=== PATIENT | female | born 1940 | race Caucasian/White ===

== ENCOUNTER 2016-06-20 15:08 | Inpatient (IN) | payer MEDICARE, OTHER ==
[~2016-06-20] VITALS: Ht 154.9 cm; Wt 77.1 kg
[~2016-06-20 15:08] MED LIST: ACETAMINOPHEN-1 EAC1 ORAL; ALLOPURINOL100 M1 ORAL; AMBIEN10 MG ORAL; AMBIEN10 MG PO; AMBIEN5 M1 PO; AMBIEN5 MG ORAL; AMBIEN5 MG PO; ATIVAN0.5 MG ORAL; ATIVAN2 MG ORAL; AZITHROMYCIN250 MG ORAL; BACITRACIN1 APPLIC TOPIC; BACTROBAN 2% OI15 GM TOPIC; BENADRYL25 M2 PO; BENADRYL25 M3 PO; BISACODYL5 MG ORAL; BISACODYL5 MG RECTAL; BUPROPION HCL150 M3 ORAL; CEFTRIAXONE1 G1 IVPB; CLOTRIMAZOLE AF30 GM TOP; CLOTRIMAZOLE15 GM TOPIC; COLACE250 MG PO; DEPAKENE250 MG ORAL; DEPAKOTE250 MG PO; DEPAKOTE500 MG ORAL; DIFLUCAN100 MG ORAL; DIPROLENE 0.05%15 GM TOPIC; DOCUSATE SODIU250 MG ORAL; ELIMITE 5% CREA60 GM TOPIC; FISH OIL 1,0001 EAC5 ORAL; FISH OIL 1,0001 EACH PO; GLUCOSAMINE1000 MG PO; HYDRALAZINE HCL25 M2 PO; HYDROCHLOROTH12.5 M2 ORAL; HYDROCHLOROTH12.5 MG ORAL; HYDROCHLOROTHIA25 MG PO; HYDROCORTISONE28 G1 TP; IBUPROFEN600 MG ORAL; K-DUR20 MEQ ORAL; KCL 20 MEQ20 MEQ/100 ORAL; KCL2 MEQ/ML PO; KEFLEX500 MG ORAL; KENALOG 0.1% CR15 GM APPLIC; KETOCONAZOLE15 GM TOP; LASIX40 MG ORAL; LEVAQUIN PO; LIDEX15 GM EXT; LIPITOR10 MG ORAL; LISINOPRIL-HCT1 EAC1 ORAL; LISINOPRIL5 MG ORAL; LOPRESSOR25 M1 ORAL; LORAZEPAM0.5 MG IV; LORAZEPAM2 MG/1 M3 IV; LORAZEPAM4 MG/1 M1 IV; LOTRISONE CREAM15 GM TP; MACROBID100 MG ORAL; MIRALAX17 G2 ORAL; MIRALAX17 GM ORAL; MIRTAZAPINE15 M3 ORAL; MOBIC15 MG ORAL; MOM30 ML PO; MOTRIN600 MG PO; MULTI-VITAMIN1 EAC1 PO; MULTIVITAMINS1 EAC8 PO; MYLANTA II30 ML PO; NITROGLYCERIN1 EAC2 TD; NORCO 5-325 TA1 EAC1 ORAL; NORCO 5-325 TA1 EACH ORAL; NORCO 7.5/3251 EA ORAL; OXYCODONE HCL15 M1 ORAL; PERI-COLACE1 EA PO; POLYETHYLENE G500 G1 MC; POTASSIUM CHLO20 ME1 ORAL; POTASSIUM CHLO20 ME1 PO; PREDNISONE20 MG ORAL; PROAIR HFA8.5 GM INH; PROMETHAZINE V237 ML ORAL; PROMETHAZINE-C118 M1 ORAL; Q-TUSSIN DM SY120 ML PO; RANITIDINE HCL150 M1 ORAL; RESPIRIDAL; RESTORIL7.5 MG ORAL; RISPERDAL0.25 MG ORAL; RISPERDAL0.5 MG ORAL; RISPERDAL0.5 MG PO; RISPERDAL1 MG ORAL; RISPERIDONE0.25 MG PO; SUDOGEST30 MG PO; SULFAMETHOXAZO1 EAC2 ORAL; TRAMADOL HCL50 MG ORAL; TYLENOL100 MG/11 PO; TYLENOL325 MG ORAL; TYLENOL650 MG/20. ORAL; VANCOMYCIN1 GM IV; VESICARE10 MG ORAL; VESICARE10 MG PO; VICODIN 5-3001 EACH ORAL; VICODIN 5-5001 EACH ORAL; VICODIN1 TA1 GT; WELLBUTRIN100 MG ORAL; XARELTO10 MG ORAL; XARELTO20 MG ORAL; ZESTRIL10 MG ORAL; ZITHROMAX TRI-500 MG ORAL; ZOFRAN 4 MG4 MG/2 ML IV; ZOFRAN ODT4 MG ORAL; [UNRECOGNIZED DRUG - OTHER] PO
[2016-06-20 15:45] VITALS: BP 121/62
[2016-06-20] MEDS ORDERED: Morphine Sulfate 2mg/ml Inj IVP ONE (16:00)
[2016-06-20] MEDS ORDERED: Vancomycin 1 GM in NS 275 ML IV ONE (16:00)
[2016-06-20] MEDS ORDERED: metroNIDAZOLE 500mg 100 ML IV SCH (16:00)
[2016-06-20] MEDS ORDERED: Cefepime HCl 1 GM in NS 55 ML IV SCH (16:00)
--- NOTE | 2016-06-20 16:00 | Emergency Room Report ---
History of Present Illness General Chief Complaint: Lower Extremity Injury Present Illness HPI The patient presents with right foot pain and redness. She's been treated for cellulitis of the foot. She will most recently was on oral antibiotics a week ago. She denies any fevers or chills at this time but the redness in his red streaks up her leg. She was advised to come to be hospitalized for IV antibiotics at this time. Pain is constant 10/10, foot, some radiation to leg, throbbing. No NVD, chest pain, CAREY, dysuria, cough, other joint pain. There is some back pain which is chronic. She is depressed and frustrated. These are the d/c dx from 05/19: 1. Acute osteomyelitis of the right second toe. 2. Nonhealing right second toe ulcer, present on admission. 3. Thrombocytopenia. 4. Uncontrolled diabetes mellitus. 5. Acute diastolic congestive heart failure. 6. Coronary artery disease. 7. Chronic obstructive pulmonary disease. 8. Hypertension. 9. Bipolar depression. Allergies: Coded Allergies: NO KNOWN DRUG ALLERGIES (Unverified Allergy, Unknown, 07/11/15) Patient History Past Medical History: see triage record Social History: Reports: alcohol use, Denies: smoking Social History Narrative assisted living Reviewed Nursing Documentation: PMH: Agreed, PSxH: Agreed Nursing Documentation-PMH Hx Hypertension: Yes Hx Pacemaker: No - stent Hx Asthma: No Hx COPD: Yes Hx Diabetes: No Hx Cancer: No Hx Gastrointestinal Problems: Yes - ETOH abuse Hx Dialysis: No Hx Neurological Problems: Yes - bilat hip replacement, non-ambulatory Hx Cerebrovascular Accident: Yes Hx Dementia: Yes Hx Seizures: No Hx Tremors: Yes Hx Vertigo: Yes Hx Dizziness: Yes Hx Syncope: Yes Hx Headaches: Yes - occasional Hx Weakness: Yes - BLE Hx Fatigue: Yes Review of Systems All Other Systems: negative except mentioned in HPI Physical Exam Vital Signs Date Time Temp Pulse Resp B/P Pulse Ox O2 Delivery O2 Flow Rate FiO2 06/20/16 15:32 99.1 60 20 133/55 98 Room Air Sp02 EP Interpretation: reviewed, normal General Appearance: Chronically Ill Head: normocephalic Eyes: bilateral eye PERRL, bilateral eye normal inspection ENT: moist mucus membranes Neck: supple Respiratory: lungs clear, normal breath sounds Cardiovascular #1: regular rate, rhythm Cardiovascular #2: 2+ radial (R) Gastrointestinal: normal inspection, normal bowel sounds, non tender, no mass, non-distended Musculoskeletal: no calf tenderness, inflammation, swelling - 2nd toe R Neurologic: alert, oriented x3, motor strength/tone normal, DTRs symmetric, sensory intact, speech normal Psychiatric: depressed affect, anxious Skin: other - erythema of 2nd toe, abrasions Medical Decision Making Diagnostic Impression: Primary Impression: Osteomyelitis of toe of right foot Additional Impression: CHF (congestive heart failure) ER Course Patient presents with pain and swelling of toe. Prior infection and recent antibiotics. Ddx: osteomyelitis, cellulitis, abscess amongst others. No evidence of DVT. Labs, BC, x-ray, EKG and CXR. Treatment with IV hydration ( gentle with h/o chf), antibiotics and analgesia. Antibiotics begun. Xray with bone destruction. Labs with normal WBC, slightly low H/H and normal ESR. Clinical exam and foot xray c/w osteomyelitis. Improved with treatment. Admit med Dr. Sierra. Laboratory Tests Test 06/20/16 16:25 White Blood Count 6.8 K/UL (4.8-10.8) Red Blood Count 3.69 M/UL (4.20-5.40) L Hemoglobin 10.4 G/DL (12.0-16.0) L Hematocrit 32.3 % (37.0-47.0) L Mean Corpuscular Volume 87 FL (80-99) Mean Corpuscular Hemoglobin 28.3 PG (27.0-31.0) Mean Corpuscular Hemoglobin Concent 32.3 G/DL (32.0-36.0) Red Cell Distribution Width 16.1 % (11.6-14.8) H Platelet Count 192 K/UL (150-450) Mean Platelet Volume 8.1 FL (6.5-10.1) Neutrophils (%) (Auto) 55.7 % (45.0-75.0) Lymphocytes (%) (Auto) 26.8 % (20.0-45.0) Monocytes (%) (Auto) 8.3 % (1.0-10.0) Eosinophils (%) (Auto) 7.9 % (0.0-3.0) H Basophils (%) (Auto) 1.3 % (0.0-2.0) Erythrocyte Sedimentation Rate 13 MM/HR (0-30) Prothrombin Time 10.8 SEC (9.30-11.50) Prothrombin Time INR 1.1 (0.9-1.1) PTT 27 SEC (23-33) Sodium Level 140 mEQ/L (135-145) Potassium Level 4.2 mEQ/L (3.4-4.9) Chloride Level 100 mEQ/L (98-107) Carbon Dioxide Level 27 mEQ/L (20-30) Anion Gap 13 (5-15) Blood Urea Nitrogen 11 mg/dL (7-23) Creatinine 0.8 mg/dL (0.5-0.9) Estimate Glomerular Filtration Rate mL/min (>60) Glucose Level 96 mg/dL (74-106) Lactic Acid Level 1.50 mmol/L (0.66-2.22) Calcium Level 8.5 mg/dL (8.6-10.2) L Total Bilirubin < 0.2 mg/dL (0.0-1.2) Aspartate Amino Transferase (AST) 16 U/L (5-40) Alanine Aminotransferase (ALT) 13 U/L (3-33) Alkaline Phosphatase 56 U/L (35-104) Total Creatine Kinase 16 U/L (26-140) L Troponin I < 0.30 ng/mL (<=0.30) Pro-B-Type Natriuretic Peptide 3389 pg/mL (0-125) H Total Protein 6.1 g/dL (6.6-8.7) L Albumin 3.7 g/dL (3.5-5.2) Globulin 2.4 g/dL Albumin/Globulin Ratio 1.5 (1.0-2.7) EKG Diagnostic Results Rate: bradycardiac Rhythm: other - paced ST Segments: no acute changes Rhythm Strip Diag. Results EP Interpretation: yes Rhythm: no PVC's, no ectopy, other - paced Chest X-Ray Diagnostic Results EP Interpretation: Yes Findings: no effusion, no pneumothorax, other - inc cor Number of Views: 1 Other X-Ray Diagnostic Results Other X-Ray Diagnostic Results : X-Ray Ordered: R foot EP Interpretation: Yes Findings: other - djd, bone destruction 2nd toe - possible osteo, osteopenia Number of Views: 3 Last Vital Signs Date Time Temp Pulse Resp B/P Pulse Ox O2 Delivery O2 Flow Rate FiO2 06/21/16 00:47 116/46 06/21/16 00:07 97.7 71 18 94 Room Air Status: improved Disposition: ADMITTED INPATIENT Condition: Serious Referrals: GAYLE SIERRA (PCP) Josue Gaspar M.D. Jun 20, 2016 16:00
[2016-06-20] MEDS ORDERED: Vancomycin 1gm inj IVPB ONE (16:37)
[2016-06-20 16:41] LABS: BASOPHILS % (AUTO) 1.3 % (0.0-2.0); EOSINOPHILS % (AUTO) 7.9 % (0.0-3.0); LYMPHOCYTES % (AUTO) 26.8 % (20.0-45.0); MEAN CORPUSCULAR HEMOGLOBIN 28.3 PG (27.0-31.0); MEAN CORPUSCULAR HGB CONC 32.3 G/DL (32.0-36.0); MEAN CORPUSCULAR VOLUME 87 FL (80-99); MEAN PLATELET VOLUME 8.1 FL (6.5-10.1); MONOCYTES % (AUTO) 8.3 % (1.0-10.0); NEUTROPHILS % (AUTO) 55.7 % (45.0-75.0); PLATELET COUNT 192 K/UL (150-450); RED BLOOD COUNT 3.69 M/UL (4.20-5.40); RED CELL DISTRIBUTION WIDTH 16.1 % (11.6-14.8); WHITE BLOOD COUNT 6.8 K/UL (4.8-10.8)
[2016-06-20 16:56] LABS: ALANINE AMINOTRANSFERASE 13 U/L (3-33); ALBUMIN/GLOBULIN RATIO 1.5 (1.0-2.7); ANION GAP 13 (5-15); ASPARTATE AMINO TRANSFERASE 16 U/L (5-40); CALCIUM 8.5 mg/dL (8.6-10.2); CARBON DIOXIDE 27 mEQ/L (20-30); CHLORIDE 100 mEQ/L (98-107); CREATININE 0.8 mg/dL (0.5-0.9); HEMOLYSIS 18; POTASSIUM 4.2 mEQ/L (3.4-4.9); SODIUM 140 mEQ/L (135-145); TOTAL PROTEIN 6.1 g/dL (6.6-8.7); TROPONIN I < 0.30 ng/mL (<=0.30)
[2016-06-20] MEDS ORDERED: Cefepime 1gm vial ONE (17:27)
[2016-06-20 17:29] LABS: INR 1.1 (0.9-1.1); PROTHROMBIN TIME 10.8 SEC (9.30-11.50)
[2016-06-20] MEDS ORDERED: LORazepam 0.5mg tab ORAL PRN (17:30)
[2016-06-20] MEDS ORDERED: Mylanta II UD 30ml ORAL PRN ×2 (17:30→17:45)
[2016-06-20] MEDS ORDERED: LORazepam Inj 2mg/ml 1ml IV SCH (17:30)
--- NOTE | 2016-06-20 17:40 | History and Physical ---
History of Present Illness General Date patient seen: Jun 20, 2016 Reason for Hospitalization: Lower Extremity Injury Present Illness HPI 75 year old female with hx of Depression, ETOH abuse, CAD, PVD, wheelchair bound patient presents with right foot pain and redness. She's been treated for cellulitis of the foot. She will most recently was on oral antibiotics a week ago. She denies any fevers or chills at this time but the redness in his red streaks up her leg. She was advised to come to be hospitalized for IV antibiotics at this time. and possibly surgical intervention Pain is constant 10/10, foot, some radiation to leg, throbbing. No NVD, chest pain, CAREY, dysuria, cough, other joint pain. There is some back pain which is chronic. Allergies: Coded Allergies: NO KNOWN DRUG ALLERGIES (Unverified Allergy, Unknown, 07/11/15) Medication History Scheduled Al Hydroxide/mg Hydroxide (Mag-Al Plus Suspension), 30 ML PO prn Q6hr, (Reported ) Allopurinol* (Allopurinol*), 100 MG ORAL DAILY Atorvastatin Calcium* (Lipitor*), 10 MG ORAL BEDTIME Bisacodyl* (Dulcolax*), 10 MG ORAL PRN daily, (Reported) Bupropion HCl (Wellbutrin), 100 MG ORAL EVERY 12 HOURS, (Reported) Bupropion Hcl* (Bupropion Hcl Sr*), 200 MG ORAL DAILY, (Reported) Ceftriaxone Sodium (Ceftriaxone), 1 GM IVPB DAILY, (Reported) Divalproex Sodium (Depakote), 250 MG ORAL EVERY 12 HOURS, (Reported) Docusate Sodium* (Docusate Sodium*), 250 MG ORAL DAILY, (Reported) Furosemide* (Lasix*), 40 MG ORAL DAILY, (Reported) Hydralazine HCl (Hydralazine HCl), 25 MG PO Q6HR, (Reported) Lisinopril (Lisinopril*), 5 MG ORAL DAILY Lorazepam (Lorazepam), 2 MG IV Q4H, (Reported) Metoprolol Tartrate (Metoprolol Tartrate), 25 MG ORAL Q12HR Mirtazapine* (Mirtazapine*), 15 MG ORAL BEDTIME, (Reported) Nitroglycerin (Nitroglycerin Patch), 1 EACH TD Q6HR, (Reported) [place]-3 Fatty Acids/Fish Oil (Fish Oil 1,000 Mg Capsule), 1,000 MG ORAL DAILY, ( Reported) Pseudoephedrine Hcl (Sudogest), 30 MG PO BID, (Reported) Pseudoephedrine Hcl (Sudogest), 30 MG PO bid prn, (Reported) Ranitidine Hcl (Ranitidine Hcl), 150 MG ORAL BEDTIME, (Reported) Risperidone* (Risperdal*), 3 MG ORAL BEDTIME Risperidone* (Risperdal*), 0.25 MG ORAL BID, (Reported) Rivaroxaban (Xarelto*), 20 MG ORAL DAILY, (Reported) Solifenacin Succinate (Vesicare*), 10 MG ORAL DAILY, (Reported) Sulfamethoxazole/Trimethoprim Ds Tablet* (Sulfamethoxazole-Tmp Ds Tablet*), 1 TAB ORAL TWICE A DAY, (Reported) Vancomycin Hcl (Vancomycin), 1 GM IV Q12HR, (Reported) Scheduled PRN Acetaminophen (Acetaminophen), 650 MG ORAL Q4HR PRN for Mild Pain/Temp > 100.5, (Reported) Bisacodyl* (Dulcolax*), 10 MG RECTAL ONCE PRN for Constipation, (Reported) Hydrocodone Bit/Acetaminophen 5-325* (Ridge 5-325 Tablet*), 1 TAB ORAL Q6HR PRN for For Pain, (Reported) Lorazepam* (Lorazepam*), 0.5 MG IV PRN Q 4 hours PRN for For Anxiety, (Reported) Ondansetron* (Zofran*), 4 MG IV Q6H PRN for Nausea & Vomiting, (Reported) Oxycodone Hcl* (Oxycodone Hcl*), 30 MG ORAL Q8H PRN for For Pain, (Reported) Polyethylene Glycol 3350* (Miralax*), 17 GM ORAL PRN at bedtime PRN for Constipation, (Reported) Promethazine/Phenyleph/Codeine (Promethazine Vc-Codeine Syrup), 10 ML ORAL Q4H PRN for For Cough, (Reported) Tramadol Hcl* (Ultram*), 50 MG ORAL Q12HR PRN for For Pain, (Reported) Zolpidem Tartrate* (Ambien*), 5 MG ORAL BEDTIME PRN for Insomnia, (Reported) Miscellaneous Medications Lorazepam (Lorazepam), 4 MG IV, (Reported) Patient History Healthcare decision maker Resuscitation status Advanced Directive on File Past Medical/Surgical History Past Medical/Surgical History: (1) Atrial flutter with controlled response (2) H/O ETOH abuse (3) CHF exacerbation (4) Cellulitis of toe of right foot (5) Osteomyelitis of toe of right foot (6) Bipolar depression (7) H/O: CVA (cerebrovascular accident) Review of Systems Constitutional: Reports: malaise, weakness Musculoskeletal: Reports: joint pain, muscle stiffness All Other Systems: negative except mentioned in HPI Physical Exam General Appearance: WD/WN Lines, tubes and drains: peripheral, PICC HEENT: normocephalic, atraumatic Neck: non-tender, supple Respiratory/Chest: chest wall non-tender, lungs clear Cardiovascular/Chest: normal peripheral pulses, regular rhythm Genitourinary/Rectal: normal genital exam Extremities: normal range of motion Skin Exam: normal pigmentation 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 Lymphatic: posterior cervical (L) Last 24 Hour Vital Signs Date Time Temp Pulse Resp B/P Pulse Ox O2 Delivery O2 Flow Rate FiO2 06/20/16 17:22 98.9 06/20/16 15:45 98.9 60 20 121/62 98 Room Air 06/20/16 15:32 99.1 60 20 133/55 98 Room Air Laboratory Tests Test 06/20/16 16:25 White Blood Count 6.8 K/UL (4.8-10.8) Red Blood Count 3.69 M/UL (4.20-5.40) L Hemoglobin 10.4 G/DL (12.0-16.0) L Hematocrit 32.3 % (37.0-47.0) L Mean Corpuscular Volume 87 FL (80-99) Mean Corpuscular Hemoglobin 28.3 PG (27.0-31.0) Mean Corpuscular Hemoglobin Concent 32.3 G/DL (32.0-36.0) Red Cell Distribution Width 16.1 % (11.6-14.8) H Platelet Count 192 K/UL (150-450) Mean Platelet Volume 8.1 FL (6.5-10.1) Neutrophils (%) (Auto) 55.7 % (45.0-75.0) Lymphocytes (%) (Auto) 26.8 % (20.0-45.0) Monocytes (%) (Auto) 8.3 % (1.0-10.0) Eosinophils (%) (Auto) 7.9 % (0.0-3.0) H Basophils (%) (Auto) 1.3 % (0.0-2.0) Erythrocyte Sedimentation Rate Pending Prothrombin Time 10.8 SEC (9.30-11.50) Prothromb Time International Ratio 1.1 (0.9-1.1) Activated Partial Thromboplast Time 27 SEC (23-33) Sodium Level 140 mEQ/L (135-145) Potassium Level 4.2 mEQ/L (3.4-4.9) Chloride Level 100 mEQ/L (98-107) Carbon Dioxide Level 27 mEQ/L (20-30) Anion Gap 13 (5-15) Blood Urea Nitrogen 11 mg/dL (7-23) Creatinine 0.8 mg/dL (0.5-0.9) Estimat Glomerular Filtration Rate mL/min (>60) Glucose Level 96 mg/dL (74-106) Lactic Acid Level 1.50 mmol/L (0.66-2.22) Calcium Level 8.5 mg/dL (8.6-10.2) L Total Bilirubin < 0.2 mg/dL (0.0-1.2) Aspartate Amino Transf (AST/SGOT) 16 U/L (5-40) Alanine Aminotransferase (ALT/SGPT) 13 U/L (3-33) Alkaline Phosphatase 56 U/L (35-104) Total Creatine Kinase 16 U/L (26-140) L Troponin I < 0.30 ng/mL (<=0.30) Pro-B-Type Natriuretic Peptide 3389 pg/mL (0-125) H Total Protein 6.1 g/dL (6.6-8.7) L Albumin 3.7 g/dL (3.5-5.2) Globulin 2.4 g/dL Albumin/Globulin Ratio 1.5 (1.0-2.7) Height (Feet): 5 Height (Inches): 1.00 Weight (Pounds): 170 Medications Current Medications Medications (Trade) Dose Ordered Sig/Ibrahima Route PRN Reason Start Time Stop Time Status Last Admin Dose Admin Acetaminophen (Tylenol) 650 mg Q4H PRN ORAL fever 06/20/16 17:45 07/20/16 17:44 UNV Al Hydroxide/Mg Hydroxide (Mylanta II) 30 ml EVERY 8 HOURS PRN ORAL dyspepsia 06/20/16 17:30 07/20/16 17:29 UNV Al Hydroxide/Mg Hydroxide (Mylanta II) 30 ml Q6H PRN ORAL dyspepsia 06/20/16 17:45 07/20/16 17:44 UNV Allopurinol (Zyloprim) 100 mg DAILY ORAL 06/21/16 09:00 07/21/16 08:59 UNV Atorvastatin Calcium (Lipitor) 10 mg BEDTIME ORAL 06/20/16 21:00 07/20/16 20:59 UNV Bisacodyl (Dulcolax) 10 mg DAILY ORAL 06/21/16 09:00 07/21/16 08:59 UNV Bupropion HCl (Wellbutrin) 100 mg EVERY 12 HOURS ORAL 06/20/16 21:00 07/20/16 20:59 UNV Cefepime HCl/ Dextrose (Maxipime/D5W) 55 ml @ 110 mls/hr EVERY 8 HOURS IV 06/20/16 22:00 06/27/16 21:59 UNV Cefepime HCl/ Dextrose (Maxipime/D5W) 110 ml @ 220 mls/hr Q12H IVPB 06/20/16 18:00 06/27/16 17:59 06/20/16 17:26 Dextrose (Dextrose 50%) STAT PRN IV Hypoglycemia 06/20/16 17:45 07/20/16 17:44 UNV Divalproex Sodium (Depakote) 250 mg EVERY 12 HOURS ORAL 06/20/16 21:00 07/20/16 20:59 UNV Furosemide (Lasix) 40 mg DAILY ORAL 06/21/16 09:00 07/21/16 08:59 UNV Heparin Sodium (Porcine) (Heparin 5000 units/ml) 5,000 units EVERY 12 HOURS SUBQ 06/20/16 21:00 07/20/16 20:59 UNV Hydralazine HCl (Apresoline) 25 mg Q6HR ORAL 06/20/16 18:00 07/20/16 17:59 UNV Lorazepam (Ativan 2mg/ml 1ml) 0.5 mg Q4H PRN IV For Anxiety 06/20/16 17:45 06/27/16 17:44 UNV Lorazepam (Ativan 2mg/ml 1ml) 2 mg Q4H IV 06/20/16 17:30 06/27/16 17:29 UNV Lorazepam (Ativan) 0.5 mg EVERY 4 HOURS PRN ORAL For Anxiety 06/20/16 17:30 06/27/16 17:29 UNV Metoprolol Tartrate (Lopressor) 25 mg Q12HR ORAL 06/20/16 21:00 07/20/16 20:59 UNV Metronidazole 100 ml @ 100 mls/hr Q8H IV 06/20/16 16:00 06/21/16 15:59 06/20/16 16:00 Morphine Sulfate (Morphine Sulfate) 1 mg EVERY 4 HOURS PRN IVP For Pain 06/20/16 17:45 06/27/16 17:44 UNV Ondansetron HCl (Zofran) 4 mg Q6H PRN IVP Nausea & Vomiting 06/20/16 17:45 07/20/16 17:44 UNV Polyethylene Glycol (Miralax) 17 gm HSPRN PRN ORAL Constipation 06/20/16 17:45 07/20/16 17:44 UNV Risperidone (RisperDAL) 3 mg BEDTIME ORAL 06/20/16 21:00 07/20/16 20:59 UNV Rivaroxaban (Xarelto) 20 mg DAILY ORAL 06/21/16 09:00 07/21/16 08:59 UNV Sodium Chloride 1,000 ml @ 300 mls/hr Q3H20M IV 06/20/16 16:00 07/20/16 15:59 06/20/16 16:36 Vancomycin HCl 1 ea 1 ea DAILY PRN MISC Per rx protocol 06/20/16 17:45 07/20/16 17:44 UNV Zolpidem Tartrate (Ambien) 5 mg HSPRN PRN ORAL Insomnia 06/20/16 17:45 07/20/16 17:44 UNV Assessment/Plan Problem List: (1) Osteomyelitis of toe of right foot ICD Codes: M86.9 - Osteomyelitis, unspecified SNOMED: 83628803 (2) COPD (chronic obstructive pulmonary disease) ICD Codes: J44.9 - Chronic obstructive pulmonary disease, unspecified SNOMED: 70666477 (3) Atrial flutter with controlled response ICD Codes: I48.92 - Atrial flutter with controlled response SNOMED: 2307686 (4) Depression ICD Codes: F32.9 - Depression SNOMED: 72887881 (5) Dementia ICD Codes: F03.90 - Dementia SNOMED: 98460008 (6) Seizure disorder ICD Codes: G40.909 - Seizure disorder SNOMED: 273599865 (7) Gout ICD Codes: M10.9 - Gout, unspecified SNOMED: 45227811 Assessment/Plan IV antibiotics wound care podiatry treatment check cultures titrate cardiac meds dvt prophylaxis GAYLE AGGARWAL Jun 20, 2016 17:40
[2016-06-20] MEDS ORDERED: LORazepam Inj 2mg/ml 1ml IV PRN (17:45)
[2016-06-20] MEDS ORDERED: Miralax 17gm pkt ORAL PRN (17:45)
[2016-06-20] MEDS ORDERED: Cefepime HCl 1 GM in D5W 110 ML IVPB SCH (18:00)
--- NOTE | 2016-06-20 19:05 | Consultation ---
Consult Note Consult Note History of suspicion of right 2nd toe osteomyelitis in May 2016. Patient completed 6 weeks of IV antibiotics at a SNF. She is concerned since the erythema and edema of the toe has returned. Patient also has a history of gout which she states started the wound. No nausea, vomiting, fevers, or chills reported Assessment/Plan Assessment: - Cellulitis right foot 2nd toe. History of suspicion of osteomyelitis in May 2016. Completed 6 weeks of IV antibiotics. No current elevated WBC and patient is afebrile - History of gout Plan: - Will perform I&D once patient has been admitted - Continue allopurinol and IV antibiotics Samuel Queen DPM Jun 20, 2016 19:05
[2016-06-20 20:40] VITALS: BP 129/58
[2016-06-20] MEDS ORDERED: Heparin 5000 units/ml inj SUBQ SCH (21:00)
[2016-06-20] MEDS: Depakote 500mg tab ORAL SCH (22:17)
[2016-06-20] MEDS: Metoprolol 25mg tab ORAL SCH (22:17)
[2016-06-20] MEDS: HydrALAZINE 25mg tab ORAL SCH (22:18)
[2016-06-20] MEDS: Xarelto 15mg tab ORAL SCH (22:18)
[2016-06-20] MEDS: Morphine Sulfate 2mg/ml Inj IVP PRN (22:21)
[2016-06-20] MEDS: Vancomycin 1gm in D5W 275ml IVPB SCH (22:37)
[2016-06-21] VITALS (7 sets, daily range): BP systolic 116–156; BP diastolic 46–70
[2016-06-21] MEDS: HydrALAZINE 25mg tab ORAL SCH ×4 (00:47→17:37)
[2016-06-21] MEDS: Zolpidem 5mg tab ORAL PRN (02:48)
[2016-06-21 07:19] LABS: HEMOGLOBIN A1C 4.6 % (< 6.0)
[2016-06-21 07:22] LABS: BASOPHILS % (AUTO) 1.5 % (0.0-2.0); EOSINOPHILS % (AUTO) 7.9 % (0.0-3.0); LYMPHOCYTES % (AUTO) 20.9 % (20.0-45.0); MEAN CORPUSCULAR HEMOGLOBIN 28.3 PG (27.0-31.0); MEAN CORPUSCULAR VOLUME 89 FL (80-99); MEAN PLATELET VOLUME 7.7 FL (6.5-10.1); MONOCYTES % (AUTO) 8.2 % (1.0-10.0); NEUTROPHILS % (AUTO) 61.6 % (45.0-75.0); PLATELET COUNT 177 K/UL (150-450); RED BLOOD COUNT 3.75 M/UL (4.20-5.40); RED CELL DISTRIBUTION WIDTH 16.4 % (11.6-14.8); WHITE BLOOD COUNT 5.9 K/UL (4.8-10.8)
[2016-06-21 07:46] LABS: ALANINE AMINOTRANSFERASE 10 U/L (3-33); ALBUMIN/GLOBULIN RATIO 1.4 (1.0-2.7); ANION GAP 15 (5-15); ASPARTATE AMINO TRANSFERASE 20 U/L (5-40); CARBON DIOXIDE 24 mEQ/L (20-30); CHLORIDE 102 mEQ/L (98-107); CHOLESTEROL 137 mg/dL (< 200); CHOLESTEROL/HDL RATIO 3.7 (3.3-4.4); CREATININE 0.8 mg/dL (0.5-0.9); HEMOLYSIS 84; LDL CHOLESTEROL (CALC.) 79 mg/dL (60-99); SODIUM 141 mEQ/L (135-145); TOTAL PROTEIN 5.6 g/dL (6.6-8.7)
[2016-06-21] MEDS: Furosemide 40mg tab ORAL SCH (08:51)
[2016-06-21] MEDS: Bisacodyl EC 5mg tab ORAL SCH (08:51)
[2016-06-21] MEDS: Metoprolol 25mg tab ORAL SCH ×2 (08:51→21:33)
[2016-06-21] MEDS: Depakote 500mg tab ORAL SCH ×2 (08:52→21:29)
--- NOTE | 2016-06-21 10:45 | Diagnostic Imaging Report ---
Indications: COUGH Technique: Portable AP chest Findings: Comparison: 05/09/2016 Cardiac silhouette remains enlarged. Pulmonary vasculature remains within normal limits. Lungs and pleura remain grossly clear. Aortic arch and mitral valvular calcification, diffuse osteopenia again noted. IMPRESSION: No evidence of acute disease, unchanged Stable chronic changes as described
--- NOTE | 2016-06-21 10:45 | Diagnostic Imaging Report ---
Indications: Right foot pain Technique: 2 views right foot Findings: Comparison: None Second through fifth hammertoe deformities limited evaluation of the phalanges. And there is apparent partial destruction and fragmentation of the second distal phalanx. Evolving of the second middle phalanx not excludable. Surrounding soft tissues are swollen with calcification. Soft tissues of the third toe are likewise colon. Third through fifth middle and distal phalangeal base cannot be adequately evaluated. First metatarsophalangeal and interphalangeal joint is narrowed with marginal osteophyte formation. Bones diffusely demineralized. Small spur plantar aspect calcaneus. IMPRESSION: Right second toe changes as described suspicious for osteomyelitis, extent of bony involvement indeterminate due to technical limitations described Right third toe soft tissue swelling, nonspecific. Associated bone destruction or other acute bony pathology not excludable. Inadequate evaluation of fourth and fifth phalanges as well, due to technical limitations described Osteoarthritis Osteopenia Calcaneal enthesophyte
[2016-06-21] MEDS ORDERED: Lidocaine 1% Plain 30 ml INJ ONE (11:15)
[2016-06-21] MEDS: Allopurinol 100mg Tab ORAL SCH (12:35)
--- NOTE | 2016-06-21 13:07 | Pulmonology Progress Note ---
Assessment/Plan Assessment/Plan ASSESSMENT R 2nd toe cellulitis R 2nd toe osteo , likely chronic pain R foot COPD chronic diastolic CHF HTN Hx of A flutter, s/p ablation DM gout depression hx of bipolar hx of ETOH abuse PLAN OF [facility] floor IV abx ID consult fup with cx ESR WNL, afebrile, no leukocytosis, picture more c/w chronic OM further abx management per ID recommendations podiatry follows I&D R foot ulcer pending Venous and Arterial Duplex BLE pending continue Allopurinol, check uric acid i am BP management with Hydralazine and BB 9 as well as rate control) , optimize as needed continue Xarelto, watch for any signs of bleeding continue Lasix, CXR with mild pulmonary congestion, no evidence of acute CHF exacerbation patient with hx of chronic diastolic dysfunction, on daily Lasix, continue monitor renal parameters, lytes Kayexalate 15 gm today x 1 pain management bowel regimen LFT, Lipid panel TSH all WNL, continue statin BS management with SS of insulin, [id number] O2 HHn prn, no respiratory complaints, no evidence of COPD exacerbation r resumed psych meds GI prophylaxis case discussed and evaluated by supervising physician Subjective Allergies: Coded Allergies: NO KNOWN DRUG ALLERGIES (Unverified Allergy, Unknown, 07/11/15) Subjective afebrile, no leukocytosis , came in after 6 wks Rx with abx for R 2 nd toe osteo redness , swelling and edema R 2 nd toe returned X ray R foot suspicious for osteo R 2 nd toe Objective Last 24 Hour Vital Signs Date Time Temp Pulse Resp B/P Pulse Ox O2 Delivery O2 Flow Rate FiO2 06/21/16 12:35 149/70 06/21/16 12:23 98.0 79 20 149/70 94 Room Air 06/21/16 08:59 98.1 78 20 148/68 94 Room Air 06/21/16 08:51 78 148/68 06/21/16 06:23 142/59 06/21/16 04:36 97.3 78 19 142/59 94 Room Air 06/21/16 00:47 116/46 06/21/16 00:07 97.7 71 18 116/46 94 Room Air 06/21/16 00:00 97.7 71 18 116/46 94 Room Air 06/20/16 22:18 138/70 06/20/16 22:17 62 138/70 06/20/16 20:52 98.9 62 20 128/60 98 Room Air 06/20/16 20:40 97.9 65 20 129/58 93 Room Air 06/20/16 17:22 98.9 06/20/16 15:45 98.9 60 20 121/62 98 Room Air 06/20/16 15:32 99.1 60 20 133/55 98 Room Air Intake and Output 06/20/16 06/21/16 19:00 07:00 Intake Total 1375 ml 340 ml Balance 1375 ml 340 ml Intake Oral 340 ml IV Total 1375 ml # Voids 2 General Appearance: no acute distress, other - A/A/O x 3 HEENT: normocephalic, atraumatic Respiratory/Chest: lungs clear - with moderate air entry , no respiratory distress, no accessory muscle use Cardiovascular: normal peripheral pulses, normal rate, regularly irregular, no JVD Abdomen: normal bowel sounds, soft, non tender, non distended - obese Genitourinary: normal external genitalia Extremities: pedal pulses normal, other - R 2 nd toe with edema, erythema, tender to touch, Skin: other - R 2 nd toe with edema, erythema, tender to touch Neurologic/Psychiatric: abnormal gait - w/c bound, alert Musculoskeletal: atrophy - BLE Laboratory Tests 06/20/16 16:25: White Blood Count 6.8, Red Blood Count 3.69L, Hemoglobin 10.4L, Hematocrit 32.3L , Mean Corpuscular Volume 87, Mean Corpuscular Hemoglobin 28.3, Mean Corpuscular Hemoglobin Concent 32.3, Red Cell Distribution Width 16.1H, Platelet Count 192, Mean Platelet Volume 8.1, Neutrophils (%) (Auto) 55.7, Lymphocytes (%) (Auto) 26.8, Monocytes (%) (Auto) 8.3, Eosinophils (%) (Auto) 7.9H, Basophils (%) (Auto) 1.3, Erythrocyte Sedimentation Rate 13, Prothrombin Time 10.8, Prothromb Time International Ratio 1.1, Activated Partial Thromboplast Time 27, Sodium Level 140, Potassium Level 4.2, Chloride Level 100 , Carbon Dioxide Level 27, Anion Gap 13, Blood Urea Nitrogen 11, Creatinine 0.8 , Estimat Glomerular Filtration Rate , Glucose Level 96, Lactic Acid Level 1.50 , Calcium Level 8.5L, Total Bilirubin < 0.2, Aspartate Amino Transf (AST/SGOT) 16, Alanine Aminotransferase (ALT/SGPT) 13, Alkaline Phosphatase 56, Total Creatine Kinase 16L, Troponin I < 0.30, Pro-B-Type Natriuretic Peptide 3389H, Total Protein 6.1L, Albumin 3.7, Globulin 2.4, Albumin/Globulin Ratio 1.5 06/21/16 05:00: White Blood Count 5.9, Red Blood Count 3.75L, Hemoglobin 10.6L, Hematocrit 33.2L , Mean Corpuscular Volume 89, Mean Corpuscular Hemoglobin 28.3, Mean Corpuscular Hemoglobin Concent 32.0, Red Cell Distribution Width 16.4H, Platelet Count 177, Mean Platelet Volume 7.7, Neutrophils (%) (Auto) 61.6, Lymphocytes (%) (Auto) 20.9, Monocytes (%) (Auto) 8.2, Eosinophils (%) (Auto) 7.9H, Basophils (%) (Auto) 1.5, Sodium Level 141, Potassium Level 5.0H, Chloride Level 102, Carbon Dioxide Level 24, Anion Gap 15, Blood Urea Nitrogen 12, Creatinine 0.8, Estimat Glomerular Filtration Rate , Glucose Level 94, Calcium Level 8.0L, Total Bilirubin < 0.2, Aspartate Amino Transf (AST/SGOT) 20 , Alanine Aminotransferase (ALT/SGPT) 10, Alkaline Phosphatase 47, Total Protein 5.6L, Albumin 3.3L, Globulin 2.3, Albumin/Globulin Ratio 1.4, Hemoglobin A1c 4.6, Triglycerides Level 104, Cholesterol Level 137, LDL Cholesterol 79, HDL Cholesterol 37, Cholesterol/HDL Ratio 3.7, Thyroid Stimulating Hormone (TSH) 2.250 Current Medications Medications (Trade) Dose Ordered Sig/Ibrahima Route PRN Reason Start Time Stop Time Status Last Admin Dose Admin Acetaminophen (Tylenol) 650 mg Q4H PRN ORAL fever 06/20/16 21:00 07/20/16 20:59 Al Hydroxide/Mg Hydroxide (Mylanta II) 30 ml Q8H PRN ORAL dyspepsia 06/20/16 17:30 07/20/16 17:29 Allopurinol (Zyloprim) 100 mg DAILY ORAL 06/21/16 09:00 07/21/16 08:59 06/21/16 12:35 Atorvastatin Calcium (Lipitor) 10 mg BEDTIME ORAL 06/20/16 21:00 07/20/16 20:59 06/20/16 22:18 Bisacodyl (Dulcolax) 10 mg DAILY ORAL 06/21/16 09:00 07/21/16 08:59 06/21/16 08:51 Bupropion HCl (Wellbutrin) 100 mg EVERY 12 HOURS ORAL 06/20/16 21:00 07/20/16 20:59 06/21/16 08:52 Cefepime HCl 1 gm/ Dextrose 55 ml @ 110 mls/hr Q24H IV 06/21/16 18:00 06/28/16 17:59 Dextrose (Dextrose 50%) STAT PRN IV Hypoglycemia 06/20/16 17:45 07/20/16 17:44 Divalproex Sodium (Depakote) 250 mg EVERY 12 HOURS ORAL 06/20/16 21:00 07/20/16 20:59 06/21/16 08:52 Furosemide (Lasix) 40 mg DAILY ORAL 06/21/16 09:00 07/21/16 08:59 06/21/16 08:51 Heparin Sodium (Porcine) (Heparin 5000 units/ml) 5,000 units EVERY 12 HOURS SUBQ 06/20/16 21:00 07/20/16 20:59 UNV Hydralazine HCl (Apresoline) 25 mg Q6HR ORAL 06/20/16 21:00 07/20/16 20:59 06/21/16 12:35 Lorazepam (Ativan 2mg/ml 1ml) 0.5 mg Q4H PRN IV For Anxiety 06/20/16 17:45 06/27/16 17:44 UNV Lorazepam (Ativan 2mg/ml 1ml) 2 mg Q4H IV 06/20/16 17:30 06/27/16 17:29 UNV Lorazepam (Ativan) 0.5 mg Q4H PRN ORAL For Anxiety 06/20/16 17:30 06/27/16 17:29 Metoprolol Tartrate (Lopressor) 25 mg Q12HR ORAL 06/20/16 21:00 07/20/16 20:59 06/21/16 08:51 Morphine Sulfate (Morphine Sulfate) 1 mg Q4H PRN IVP For Pain 06/20/16 17:45 06/27/16 17:44 06/20/16 22:21 Ondansetron HCl (Zofran) 4 mg Q6H PRN IVP Nausea & Vomiting 06/20/16 17:45 07/20/16 17:44 Polyethylene Glycol (Miralax) 17 gm HSPRN PRN ORAL Constipation 06/20/16 17:45 07/20/16 17:44 Risperidone (RisperDAL) 3 mg BEDTIME ORAL 06/20/16 21:00 07/20/16 20:59 06/20/16 22:17 Rivaroxaban (Xarelto) 15 mg QPM ORAL 06/20/16 21:00 07/20/16 20:59 06/20/16 22:18 Vancomycin HCl 1 ea 1 ea DAILY PRN MISC Per rx protocol 06/20/16 17:45 07/20/16 17:44 Vancomycin HCl/ Dextrose (Vancomycin/D5W) 275 ml @ 183.708 mls/hr Q24H IVPB 06/20/16 22:00 06/25/16 21:59 06/20/16 22:37 Zolpidem Tartrate (Ambien) 5 mg HSPRN PRN ORAL Insomnia 06/20/16 17:45 07/20/16 17:44 06/21/16 02:48 Jazzy Campuzano NP ([facility]anch[facility]) Jun 21, 2016 13:07
[2016-06-21] MEDS ORDERED: Sodium Polystyrene Sulfonate 15gm Powder ORAL ONE (14:00)
--- NOTE | 2016-06-21 14:50 | Podiatric Progress Note ---
Assessment/Plan Patient Ashlee Rodriguez is a 75 year old female who was admitted on Jun 20, 2016 at 16:23 with right 2nd toe cellulitis Problems: (1) Cellulitis of toe of right foot (2) Foot ulcer, right (3) Gout Assessment/Plan - Right 2nd toe I&D performed. White chalky drainage was evacuated from the area which is suspicious for gouty tophi. Cultures taken and sample was sent to pathology lab for evaluation for crystals. Questionable if toe erythema is secondary to underlying infection and/or gout flare. Patient remains afebrile and without an elevated WBC - Continue antibiotics - Uric acid level ordered. Follow up results - Start daily dressing changes Procedure Note: Patient was consented and the right foot 2nd toe was anesthetized using 1% lidocaine plain. Once appropriate anesthesia was achieved the an incision was made at the dorsal 2nd toe using a 15 blade. White chalky drainage was noted to the level of bone. The area was dressed with adaptic, 4x4 gauze, and kerlix. Subjective Reason for consult Right 2nd toe cellulitis Allergies: Coded Allergies: NO KNOWN DRUG ALLERGIES (Unverified Allergy, Unknown, 07/11/15) Subjective Patient states no pain, nausea, vomiting, fevers, or chills Objective Exam Last 24 Hour Vital Signs Date Time Temp Pulse Resp B/P Pulse Ox O2 Delivery O2 Flow Rate FiO2 06/21/16 12:35 149/70 06/21/16 12:23 98.0 79 20 149/70 94 Room Air 06/21/16 08:59 98.1 78 20 148/68 94 Room Air 06/21/16 08:51 78 148/68 06/21/16 06:23 142/59 06/21/16 04:36 97.3 78 19 142/59 94 Room Air 06/21/16 00:47 116/46 06/21/16 00:07 97.7 71 18 116/46 94 Room Air 06/21/16 00:00 97.7 71 18 116/46 94 Room Air 06/20/16 22:18 138/70 06/20/16 22:17 62 138/70 06/20/16 20:52 98.9 62 20 128/60 98 Room Air 06/20/16 20:40 97.9 65 20 129/58 93 Room Air 06/20/16 17:22 98.9 06/20/16 15:45 98.9 60 20 121/62 98 Room Air 06/20/16 15:32 99.1 60 20 133/55 98 Room Air Laboratory Tests Test 06/20/16 16:25 06/21/16 05:00 White Blood Count 6.8 K/UL (4.8-10.8) 5.9 K/UL (4.8-10.8) Red Blood Count 3.69 M/UL (4.20-5.40) L 3.75 M/UL (4.20-5.40) L Hemoglobin 10.4 G/DL (12.0-16.0) L 10.6 G/DL (12.0-16.0) L Hematocrit 32.3 % (37.0-47.0) L 33.2 % (37.0-47.0) L Mean Corpuscular Volume 87 FL (80-99) 89 FL (80-99) Mean Corpuscular Hemoglobin 28.3 PG (27.0-31.0) 28.3 PG (27.0-31.0) Mean Corpuscular Hemoglobin Concent 32.3 G/DL (32.0-36.0) 32.0 G/DL (32.0-36.0) Red Cell Distribution Width 16.1 % (11.6-14.8) H 16.4 % (11.6-14.8) H Platelet Count 192 K/UL (150-450) 177 K/UL (150-450) Mean Platelet Volume 8.1 FL (6.5-10.1) 7.7 FL (6.5-10.1) Neutrophils (%) (Auto) 55.7 % (45.0-75.0) 61.6 % (45.0-75.0) Lymphocytes (%) (Auto) 26.8 % (20.0-45.0) 20.9 % (20.0-45.0) Monocytes (%) (Auto) 8.3 % (1.0-10.0) 8.2 % (1.0-10.0) Eosinophils (%) (Auto) 7.9 % (0.0-3.0) H 7.9 % (0.0-3.0) H Basophils (%) (Auto) 1.3 % (0.0-2.0) 1.5 % (0.0-2.0) Erythrocyte Sedimentation Rate 13 MM/HR (0-30) Prothrombin Time 10.8 SEC (9.30-11.50) Prothromb Time International Ratio 1.1 (0.9-1.1) Activated Partial Thromboplast Time 27 SEC (23-33) Sodium Level 140 mEQ/L (135-145) 141 mEQ/L (135-145) Potassium Level 4.2 mEQ/L (3.4-4.9) 5.0 mEQ/L (3.4-4.9) H Chloride Level 100 mEQ/L (98-107) 102 mEQ/L (98-107) Carbon Dioxide Level 27 mEQ/L (20-30) 24 mEQ/L (20-30) Anion Gap 13 (5-15) 15 (5-15) Blood Urea Nitrogen 11 mg/dL (7-23) 12 mg/dL (7-23) Creatinine 0.8 mg/dL (0.5-0.9) 0.8 mg/dL (0.5-0.9) Estimat Glomerular Filtration Rate mL/min (>60) mL/min (>60) Glucose Level 96 mg/dL (74-106) 94 mg/dL (74-106) Lactic Acid Level 1.50 mmol/L (0.66-2.22) Calcium Level 8.5 mg/dL (8.6-10.2) L 8.0 mg/dL (8.6-10.2) L Total Bilirubin < 0.2 mg/dL (0.0-1.2) < 0.2 mg/dL (0.0-1.2) Aspartate Amino Transf (AST/SGOT) 16 U/L (5-40) 20 U/L (5-40) Alanine Aminotransferase (ALT/SGPT) 13 U/L (3-33) 10 U/L (3-33) Alkaline Phosphatase 56 U/L (35-104) 47 U/L (35-104) Total Creatine Kinase 16 U/L (26-140) L Troponin I < 0.30 ng/mL (<=0.30) Pro-B-Type Natriuretic Peptide 3389 pg/mL (0-125) H Total Protein 6.1 g/dL (6.6-8.7) L 5.6 g/dL (6.6-8.7) L Albumin 3.7 g/dL (3.5-5.2) 3.3 g/dL (3.5-5.2) L Globulin 2.4 g/dL 2.3 g/dL Albumin/Globulin Ratio 1.5 (1.0-2.7) 1.4 (1.0-2.7) Hemoglobin A1c 4.6 % (< 6.0) Triglycerides Level 104 mg/dL (< 150) Cholesterol Level 137 mg/dL (< 200) LDL Cholesterol 79 mg/dL (60-99) HDL Cholesterol 37 mg/dL (> 60) Cholesterol/HDL Ratio 3.7 (3.3-4.4) Thyroid Stimulating Hormone (TSH) 2.250 uIU/mL (0.300-4.500) Exam Narrative Right second toe with erythema and edema. There is a small dry scab at the dorsal surface. No drainage noted. Samuel Queen DPM Jun 21, 2016 14:50
--- NOTE | 2016-06-21 16:28 | Consultation ---
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 Right third toe soft tissue swelling, nonspecific. Associated bone destruction or other acute bony pathology not excludable. - MRI 05/2016: Findings suspicious for osteomyelitis involving the right second middle and distal phalanges - CRP, ESR WNL // Afebrile without leukocytosis // Nonambulatory / wheelchair bound // NH resident // h/o MRSA, VRE colonization // NKDA // Full Code PLAN: - continue empiric IV vancomycin, cefepime d# 2 for now - f/u cultures - monitor CBC, temperatures - monitor BMP - wound care Thanks! Will follow ANTONY FELDMAN Jun 21, 2016 16:28
[2016-06-21] MEDS: Xarelto 15mg tab ORAL SCH (17:04)
--- NOTE | 2016-06-21 17:08 | Consultation ---
DATE OF CONSULTATION: 06/20/2016 IDENTIFYING DATA: The patient is a 75-year-old female. CONSULTING SPECIALTY: Podiatry. CONSULTING PHYSICIAN: Samuel Queen D.P.M., covering for Luis Galvan D.P.M. REASON FOR CONSULTATION: Right foot second toe cellulitis. CHIEF COMPLAINT: Right second toe redness. HISTORY OF PRESENT ILLNESS: The patient is a 75-year-old female who was last admitted in the hospital in May 2016. An MRI was performed, which was suspicion for osteomyelitis. The patient was started on local wound care and 6 weeks of IV antibiotics. Upon completion of the IV antibiotics, the patient noted that there was increased redness and swelling in the toe. No purulence or malodor noted. The patient has a history of gout on bilateral second toes, which she states started the ulceration. PAST MEDICAL HISTORY: Anxiety, depression, hypertension, coronary artery disease, dementia, atrial fibrillation, and hypertension. ALLERGIES: None known. CURRENT MEDICATIONS: Cefepime and vancomycin. Please refer to chart for remainder of the medications LABORATORY DATA: On 06/20/2016, white blood cell count of 6.8, hemoglobin 10.4, hematocrit 32.3, and platelets of 192,000. Sodium of 140, potassium 4.2, chloride of 100, carbon dioxide of 27, BUN 11, and creatinine 0.8. PHYSICAL EXAMINATION: VITAL SIGNS: On 06/20/2016, temperature 99.1, pulse 60, respiratory rate 20, blood pressure 133/55, and pulse oximetry is 98% on room air. EXTREMITIES: Right foot second toe with a dry scab at the dorsal aspect. The entire toe is erythematous. No drainage or malodor noted. Left 2nd toe appears to have tophaceous gout at the distal interphalangeal joint VASCULAR: Pedal pulses are lightly palpable. Right second toe with edema and erythema. MUSCULOSKELETAL: Decreased muscle strength noted. NEUROLOGICAL: Sensate to light touch. ASSESSMENT: 1. Cellulitis, right foot, second toe. MRI in May 2016 was suspicious for osteomyelitis. The patient has completed 6 weeks of intravenous antibiotics. 2. History of gout. PLAN: We will perform incision and drainage after the patient has been admitted to the hospital. Continue allopurinol and IV antibiotics. Samuel Queen DPM DR: ORIANA JOB#: [id number] CC: CHANEL
[2016-06-21] MEDS: Cefepime HCl 1 GM in D5W 55 ML IV SCH (17:37)
[2016-06-21] MEDS: Morphine Sulfate 2mg/ml Inj IVP PRN (19:24)
[2016-06-21] MEDS: Vancomycin 1gm in D5W 275ml IVPB SCH (21:29)
[2016-06-22] VITALS (7 sets, daily range): BP systolic 129–170; BP diastolic 65–77
[2016-06-22] MEDS: HydrALAZINE 25mg tab ORAL SCH ×4 (00:27→17:47)
--- NOTE | 2016-06-22 00:47 | Consultation ---
DATE OF CONSULTATION: 06/21/2016 REQUESTING PHYSICIAN: Mendel Sierra M.D. REASON FOR CONSULTATION: Osteomyelitis. HISTORY OF PRESENT ILLNESS: This is a 75-year-old female with a history of chronic nonhealing right second toe ulcer with associated osteomyelitis for which she was treated with 6 weeks of IV vancomycin and Rocephin and now admitted on 06/20/2016 with pain in the right second toe. No associated fevers or chills. 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 The wound culture is pending. She is afebrile without leukocytosis, and ESR and CRP are within normal limits. She has been started on empiric vancomycin and cefepime, and ID now consulted to assist in management. PAST MEDICAL HISTORY: 1. Hypertension. 2. Osteoarthritis. 3. Right second toe osteomyelitis, status post treatment. 4. Osteopenia . 5. Gout. PAST SURGICAL HISTORY: Incision and drainage of the right second toe on 06/21/2016. FAMILY HISTORY: Noncontributory. SOCIAL HISTORY: The patient is nonambulatory and wheelchair bound. ALLERGIES: No known drug allergies. MEDICATIONS: 1. Vancomycin. 2. Cefepime. 3. Zantac. 4. Allopurinol. 5. Lasix. 6. Lipitor. 7. Wellbutrin. 8. Depakote. 9. Hydralazine. 10. Metoprolol. 11. Risperdal. 12. Xarelto. REVIEW OF SYSTEMS: As per history of present illness. Ten systems were reviewed. All pertinent positives and negatives were noted. PHYSICAL EXAMINATION: VITAL SIGNS: Maximum temperature 98.9, blood pressure 149/78, heart rate in the 70s, respiratory rate 20, and saturating 94% on room air. GENERAL: No apparent distress. Nontoxic appearing. CARDIOVASCULAR: Regular rate and rhythm. No murmurs. PULMONARY: Clear to auscultation bilaterally. ABDOMEN: Bowel sounds present. Soft, nondistended, and nontender. EXTREMITIES: No edema. Right foot is bandaged. Photographic evidence reviewed. Right second toe erythema. LABORATORY DATA: White blood cell count of 5.9, hemoglobin 10.6, and platelets 177,000. Sodium 141, potassium 5, chloride 102, bicarbonate 24, BUN 12, and creatinine 0.8. ESR 13. Lactic acid 1.5. Liver function tests within normal limits. Troponin negative x1. MICROBIOLOGY: On 06/21/2016, right second toe wound culture pending. IMAGIN. On 06/20/2016, chest x-ray, no acute findings. Stable chronic changes. 2. 06/20/2016, right foot x-ray with right second toe changes, suspicious for osteomyelitis. The right third toe soft tissue swelling. ASSESSMENT: 1. Chronic nonhealing right second toe ulcer cellulitis and osteomyelitis, status post treatment with 6 weeks of IV vancomycin and Rocephin, rule out recurrence versus gout flare. She is status post incision and drainage today consistent with gouty tophi. Wound cultures pending. ESR is within normal limits. 2. Afebrile without leukocytosis. 3. Nonambulatory and wheelchair-bound. 4. prison resident. 5. 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 6. No known drug allergies. 7. Full Code. PLAN: 1. Continue empiric IV vancomycin and cefepime day 2 for now. 2. Follow up cultures. 3. Monitor CBC and temperatures. 4. Monitor BMP. 5. Wound care. Thank you. We will follow. Rosales Bloom M.D. DR: WEST JOB#: [id number] CC: Mendel Sierra M.D.; Fax#: [phone] Alborzi, M.D ; Fax#: [phone]
[2016-06-22] MEDS: Zolpidem 5mg tab ORAL PRN (01:49)
[2016-06-22] MEDS: Bisacodyl EC 5mg tab ORAL SCH (08:12)
[2016-06-22] MEDS: Metoprolol 25mg tab ORAL SCH ×2 (08:13→20:47)
[2016-06-22] MEDS: Depakote 500mg tab ORAL SCH ×2 (08:13→20:47)
[2016-06-22] MEDS: Allopurinol 100mg Tab ORAL SCH (08:14)
[2016-06-22] MEDS: Furosemide 40mg tab ORAL SCH (08:14)
[2016-06-22] MEDS: Morphine Sulfate 2mg/ml Inj IVP PRN (09:43)
[2016-06-22 10:07] LABS: BASOPHILS % (AUTO) 1.4 % (0.0-2.0); EOSINOPHILS % (AUTO) 6.7 % (0.0-3.0); LYMPHOCYTES % (AUTO) 21.1 % (20.0-45.0); MEAN CORPUSCULAR HEMOGLOBIN 28.1 PG (27.0-31.0); MEAN CORPUSCULAR VOLUME 91 FL (80-99); MEAN PLATELET VOLUME 8.1 FL (6.5-10.1); MONOCYTES % (AUTO) 8.2 % (1.0-10.0); NEUTROPHILS % (AUTO) 62.7 % (45.0-75.0); PLATELET COUNT 156 K/UL (150-450); RED BLOOD COUNT 3.93 M/UL (4.20-5.40); RED CELL DISTRIBUTION WIDTH 16.2 % (11.6-14.8); WHITE BLOOD COUNT 6.2 K/UL (4.8-10.8)
[2016-06-22 10:15] LABS: ANION GAP 9 (5-15); CALCIUM 8.3 mg/dL (8.6-10.2); CARBON DIOXIDE 33 mEQ/L (20-30); CHLORIDE 99 mEQ/L (98-107); CREATININE 0.7 mg/dL (0.5-0.9); HEMOLYSIS 4; POTASSIUM 4.3 mEQ/L (3.4-4.9); SODIUM 141 mEQ/L (135-145); URIC ACID 5.1 mg/dL (3.0-7.5)
--- NOTE | 2016-06-22 15:17 | Infectious Diseases Prog Note ---
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 Right third toe soft tissue swelling, nonspecific. Associated bone destruction or other acute bony pathology not excludable. - MRI 05/2016: Findings suspicious for osteomyelitis involving the right second middle and distal phalanges - CRP, ESR WNL // Afebrile without leukocytosis // +ve Blood Cx : GPC / // Nonambulatory / wheelchair bound // NH resident // h/o MRSA, VRE colonization // NKDA // Full Code PLAN: - continue empiric IV vancomycin, cefepime d# 3 - f/u cultures - monitor CBC, temperatures - monitor BMP - wound care Subjective Constitutional: Denies: anorexia, chills, drenching sweats, fatigue, fever, no symptoms, other Allergies: Coded Allergies: NO KNOWN DRUG ALLERGIES (Unverified Allergy, Unknown, 07/11/15) Objective Vital Signs Last 24 Hour Vital Signs Date Time Temp Pulse Resp B/P Pulse Ox O2 Delivery O2 Flow Rate FiO2 06/22/16 13:11 138/72 06/22/16 12:04 97.5 66 20 138/72 99 Nasal Cannula 06/22/16 10:59 62 141/67 06/22/16 10:13 97.7 06/22/16 08:13 67 170/77 06/22/16 08:00 97.7 67 19 170/77 100 Nasal Cannula 06/22/16 06:20 161/71 06/22/16 04:00 97.2 70 20 161/71 88 Room Air 06/22/16 00:27 151/68 06/22/16 00:00 97.2 62 20 151/68 90 Room Air 06/21/16 21:33 67 156/63 06/21/16 20:00 98.2 67 20 156/63 92 Room Air 06/21/16 17:37 132/59 06/21/16 16:17 98.1 64 19 132/59 92 Room Air Height (Feet): 5 Height (Inches): 1.00 Weight (Pounds): 170 HEENT: anicteric Respiratory/Chest: normal breath sounds Abdomen: normal bowel sounds Extremities: no cyanosis Neurologic/Psychiatric: responsive Microbiology Date/Time Source Procedure Growth Status 06/20/16 16:25 Blood Blood Culture - Preliminary NO GROWTH AFTER 24 HOURS Resulted 06/20/16 16:10 Blood Blood Culture - Preliminary Gram Positive Cocci Resulted 06/21/16 11:30 Foot Right Gram Stain - Final Resulted 06/21/16 11:30 Foot Right Aerobic Culture - Preliminary NO GROWTH Resulted 06/21/16 11:30 Foot Right Anaerobic Culture Pending Resulted Laboratory Tests Test 06/22/16 09:30 White Blood Count 6.2 K/UL (4.8-10.8) Red Blood Count 3.93 M/UL (4.20-5.40) L Hemoglobin 11.0 G/DL (12.0-16.0) L Hematocrit 35.6 % (37.0-47.0) L Mean Corpuscular Volume 91 FL (80-99) Mean Corpuscular Hemoglobin 28.1 PG (27.0-31.0) Mean Corpuscular Hemoglobin Concent 31.0 G/DL (32.0-36.0) L Red Cell Distribution Width 16.2 % (11.6-14.8) H Platelet Count 156 K/UL (150-450) Mean Platelet Volume 8.1 FL (6.5-10.1) Neutrophils (%) (Auto) 62.7 % (45.0-75.0) Lymphocytes (%) (Auto) 21.1 % (20.0-45.0) Monocytes (%) (Auto) 8.2 % (1.0-10.0) Eosinophils (%) (Auto) 6.7 % (0.0-3.0) H Basophils (%) (Auto) 1.4 % (0.0-2.0) Sodium Level 141 mEQ/L (135-145) Potassium Level 4.3 mEQ/L (3.4-4.9) Chloride Level 99 mEQ/L (98-107) Carbon Dioxide Level 33 mEQ/L (20-30) H Anion Gap 9 (5-15) Blood Urea Nitrogen 10 mg/dL (7-23) Creatinine 0.7 mg/dL (0.5-0.9) Estimat Glomerular Filtration Rate mL/min (>60) Glucose Level 93 mg/dL (74-106) Uric Acid 5.1 mg/dL (3.0-7.5) Calcium Level 8.3 mg/dL (8.6-10.2) L Current Medications Medications (Trade) Dose Ordered Sig/Ibrahima Route PRN Reason Start Time Stop Time Status Last Admin Dose Admin Acetaminophen (Tylenol) 650 mg Q4H PRN ORAL fever 06/20/16 21:00 07/20/16 20:59 Al Hydroxide/Mg Hydroxide (Mylanta II) 30 ml Q8H PRN ORAL dyspepsia 06/20/16 17:30 07/20/16 17:29 Allopurinol (Zyloprim) 100 mg DAILY ORAL 06/21/16 09:00 07/21/16 08:59 06/22/16 08:14 Atorvastatin Calcium (Lipitor) 10 mg BEDTIME ORAL 06/20/16 21:00 07/20/16 20:59 06/21/16 21:28 Bisacodyl (Dulcolax) 10 mg DAILY ORAL 06/21/16 09:00 07/21/16 08:59 06/22/16 08:12 Bupropion HCl (Wellbutrin) 100 mg EVERY 12 HOURS ORAL 06/20/16 21:00 07/20/16 20:59 06/22/16 08:14 Cefepime HCl 1 gm/ Dextrose 55 ml @ 110 mls/hr Q24H IV 06/21/16 18:00 06/28/16 17:59 06/21/16 17:37 Dextrose (Dextrose 50%) STAT PRN IV Hypoglycemia 06/20/16 17:45 07/20/16 17:44 Divalproex Sodium (Depakote) 250 mg EVERY 12 HOURS ORAL 06/20/16 21:00 07/20/16 20:59 06/22/16 08:13 Furosemide (Lasix) 40 mg DAILY ORAL 06/21/16 09:00 07/21/16 08:59 06/22/16 08:14 Hydralazine HCl (Apresoline) 25 mg Q6HR ORAL 06/20/16 21:00 07/20/16 20:59 06/22/16 13:11 Lorazepam (Ativan 2mg/ml 1ml) 0.5 mg Q4H PRN IV For Anxiety 06/20/16 17:45 06/27/16 17:44 Lorazepam (Ativan) 0.5 mg Q4H PRN ORAL For Anxiety 06/20/16 17:30 06/27/16 17:29 Metoprolol Tartrate (Lopressor) 25 mg Q12HR ORAL 06/20/16 21:00 07/20/16 20:59 06/22/16 08:13 Morphine Sulfate (Morphine Sulfate) 1 mg Q4H PRN IVP For Pain 06/20/16 17:45 06/27/16 17:44 06/22/16 09:43 Ondansetron HCl (Zofran) 4 mg Q6H PRN IVP Nausea & Vomiting 06/20/16 17:45 07/20/16 17:44 Polyethylene Glycol (Miralax) 17 gm HSPRN PRN ORAL Constipation 06/20/16 17:45 07/20/16 17:44 Ranitidine HCl (Zantac) 150 mg BEDTIME ORAL 06/21/16 21:00 07/21/16 20:59 06/21/16 21:34 Risperidone (RisperDAL) 3 mg BEDTIME ORAL 06/20/16 21:00 07/20/16 20:59 06/21/16 21:34 Rivaroxaban (Xarelto) 15 mg QPM ORAL 06/20/16 21:00 07/20/16 20:59 06/21/16 17:04 Vancomycin HCl 1 ea 1 ea DAILY PRN MISC Per rx protocol 06/20/16 17:45 07/20/16 17:44 Vancomycin HCl/ Dextrose (Vancomycin/D5W) 275 ml @ 183.708 mls/hr Q24H IVPB 06/20/16 22:00 06/25/16 21:59 06/21/16 21:29 Zolpidem Tartrate (Ambien) 5 mg HSPRN PRN ORAL Insomnia 06/20/16 17:45 07/20/16 17:44 06/22/16 01:49 NETO ZEPEDA M.D. Jun 22, 2016 15:17
--- NOTE | 2016-06-22 17:01 | Diagnostic Imaging Report ---
APPROVED REPORT CPT Code: 63602 Present Symptoms Lower Extremity Edema: Shortness of breath Comments: Recent surgery on right big toe to remove infection. BILATERAL: Imaging reveals a patent deep venous system bilaterally. There is no evidence of thrombus within the femoral, popliteal or tibial segments. The greater saphenous veins are also within normal limits. Doppler indicates normal spontaneous flow within these segments.
--- NOTE | 2016-06-22 17:02 | Diagnostic Imaging Report ---
APPROVED REPORT CPT Code: 45922 Symptoms Rest Pain : Comments: Hx minimal tibial bilateral ischemia Risk Factors Cardiac Disease RIGHT LEG: Common femoral artery waveform analysis is within normal limits at rest. Color flow duplex sonography reveals calcification throughout the superficial femoral and popliteal arteries. There is no evidence of significant stenosis or occlusion within these segments. The tibioperoneal trunk is patent. The distal posterior and dorsalis pedis arteries are also mildly calcified. A mild (40-50%) stenosis is seen in the anterior tibial artery. Doppler tibial artery waveform analysis is compatible with mild ischemia at rest. LEFT LEG: Common femoral artery waveform analysis is within normal limits at rest. Color flow duplex sonography reveals calcification throughout the superficial femoral and popliteal arteries. There is no evidence of significant stenosis or occlusion within these segments. The tibioperoneal trunk was not well visualized. The distal posterior and dorsalis pedis arteries are also mildly calcified. Doppler tibial artery waveform analysis is compatible with minimal ischemia at rest.
--- NOTE | 2016-06-22 17:13 | Pulmonology Progress Note ---
Assessment/Plan Assessment/Plan ASSESSMENT R 2nd toe cellulitis s/p I&D R 2 nd toe 06/21 R 2nd toe osteo , likely chronic pain R foot COPD chronic diastolic CHF HTN Hx of A flutter, s/p ablation DM gout depression hx of bipolar hx of ETOH abuse [facility] floor IV abx ID follows fup with wound cx, blood cx + 1/2 GPC ESR WNL, afebrile, no leukocytosis, picture more c/w chronic OM further abx management per ID recommendations podiatry follows s/p I&D R foot ulcer wound care as per podiatry recommendation Venous and Arterial Duplex BLE continue Allopurinol, check uric acid i am BP management with Hydralazine and BB ( as well as rate control) , optimize as needed continue Xarelto, watch for any signs of bleeding continue Lasix, CXR with mild pulmonary congestion, no evidence of acute CHF exacerbation patient with hx of chronic diastolic dysfunction, on daily Lasix, continue monitor renal parameters, lytes uric acid WNL, K stable after Kayexalate pain management bowel regimen LFT, Lipid panel . TSH all WNL, continue statin BS management with SS of insulin, [id number]-6.6 O2 HHn prn, no respiratory complaints, no evidence of COPD exacerbation r resumed psych meds GI prophylaxis case discussed and evaluated by supervising physician Subjective Allergies: Coded Allergies: NO KNOWN DRUG ALLERGIES (Unverified Allergy, Unknown, 07/11/15) Subjective afebrile, no leukocytosis , came in after 6 wks Rx with abx for R 2 nd toe osteo redness , swelling and edema R 2 nd toe returned X ray R foot suspicious for osteo R 2 nd toe s/p I&D R 2 nd toe 06/21 Objective Last 24 Hour Vital Signs Date Time Temp Pulse Resp B/P Pulse Ox O2 Delivery O2 Flow Rate FiO2 06/22/16 16:00 98.2 60 20 129/65 94 Room Air 06/22/16 13:11 138/72 06/22/16 12:04 97.5 66 20 138/72 99 Nasal Cannula 06/22/16 10:59 62 141/67 06/22/16 10:13 97.7 06/22/16 08:13 67 170/77 06/22/16 08:00 97.7 67 19 170/77 100 Nasal Cannula 06/22/16 06:20 161/71 06/22/16 04:00 97.2 70 20 161/71 88 Room Air 06/22/16 00:27 151/68 06/22/16 00:00 97.2 62 20 151/68 90 Room Air 06/21/16 21:33 67 156/63 06/21/16 20:00 98.2 67 20 156/63 92 Room Air 06/21/16 17:37 132/59 Intake and Output 06/21/16 06/22/16 19:00 07:00 Intake Total 1135 ml 395.0 ml Balance 1135 ml 395.0 ml Intake Oral 1080 ml 120 ml IV Total 55 ml 275.0 ml # Voids 4 1 Objective General Appearance: no acute distress, other - A/A/O x 3 HEENT: normocephalic, atraumatic Respiratory/Chest: lungs clear - with moderate air entry , no respiratory distress, no accessory muscle use Cardiovascular: normal peripheral pulses, normal rate, regularly irregular, no JVD Abdomen: normal bowel sounds, soft, non tender, non distended - obese Genitourinary: normal external genitalia Extremities: pedal pulses normal, other - R 2 nd toe with edema, erythema, tender to touch, Skin: other - R 2 nd toe withdressing C/D/I Neurologic/Psychiatric: abnormal gait - w/c bound, alert Musculoskeletal: atrophy - BLE Microbiology Date/Time Source Procedure Growth Status 06/20/16 16:25 Blood Blood Culture - Preliminary NO GROWTH AFTER 24 HOURS Resulted 06/20/16 16:10 Blood Blood Culture - Preliminary Gram Positive Cocci Resulted 06/21/16 11:30 Foot Right Gram Stain - Final Resulted 06/21/16 11:30 Foot Right Aerobic Culture - Preliminary NO GROWTH Resulted 06/21/16 11:30 Foot Right Anaerobic Culture Pending Resulted Laboratory Tests 06/22/16 09:30: White Blood Count 6.2, Red Blood Count 3.93L, Hemoglobin 11.0L, Hematocrit 35.6L , Mean Corpuscular Volume 91, Mean Corpuscular Hemoglobin 28.1, Mean Corpuscular Hemoglobin Concent 31.0L, Red Cell Distribution Width 16.2H, Platelet Count 156, Mean Platelet Volume 8.1, Neutrophils (%) (Auto) 62.7, Lymphocytes (%) (Auto) 21.1, Monocytes (%) (Auto) 8.2, Eosinophils (%) (Auto) 6.7H, Basophils (%) (Auto) 1.4, Sodium Level 141, Potassium Level 4.3, Chloride Level 99, Carbon Dioxide Level 33H, Anion Gap 9, Blood Urea Nitrogen 10, Creatinine 0.7, Estimat Glomerular Filtration Rate , Glucose Level 93, Uric Acid 5.1, Calcium Level 8.3L Current Medications Medications (Trade) Dose Ordered Sig/Ibrahima Route PRN Reason Start Time Stop Time Status Last Admin Dose Admin Acetaminophen (Tylenol) 650 mg Q4H PRN ORAL fever 06/20/16 21:00 07/20/16 20:59 Al Hydroxide/Mg Hydroxide (Mylanta II) 30 ml Q8H PRN ORAL dyspepsia 06/20/16 17:30 07/20/16 17:29 Allopurinol (Zyloprim) 100 mg DAILY ORAL 06/21/16 09:00 07/21/16 08:59 06/22/16 08:14 Atorvastatin Calcium (Lipitor) 10 mg BEDTIME ORAL 06/20/16 21:00 07/20/16 20:59 06/21/16 21:28 Bisacodyl (Dulcolax) 10 mg DAILY ORAL 06/21/16 09:00 07/21/16 08:59 06/22/16 08:12 Bupropion HCl (Wellbutrin) 100 mg EVERY 12 HOURS ORAL 06/20/16 21:00 07/20/16 20:59 06/22/16 08:14 Cefepime HCl 1 gm/ Dextrose 55 ml @ 110 mls/hr Q24H IV 06/21/16 18:00 06/28/16 17:59 06/21/16 17:37 Dextrose (Dextrose 50%) STAT PRN IV Hypoglycemia 06/20/16 17:45 07/20/16 17:44 Divalproex Sodium (Depakote) 250 mg EVERY 12 HOURS ORAL 06/20/16 21:00 07/20/16 20:59 06/22/16 08:13 Furosemide (Lasix) 40 mg DAILY ORAL 06/21/16 09:00 07/21/16 08:59 06/22/16 08:14 Hydralazine HCl (Apresoline) 25 mg Q6HR ORAL 06/20/16 21:00 07/20/16 20:59 06/22/16 13:11 Lorazepam (Ativan 2mg/ml 1ml) 0.5 mg Q4H PRN IV For Anxiety 06/20/16 17:45 06/27/16 17:44 Lorazepam (Ativan) 0.5 mg Q4H PRN ORAL For Anxiety 06/20/16 17:30 06/27/16 17:29 Metoprolol Tartrate (Lopressor) 25 mg Q12HR ORAL 06/20/16 21:00 07/20/16 20:59 06/22/16 08:13 Morphine Sulfate (Morphine Sulfate) 1 mg Q4H PRN IVP For Pain 06/20/16 17:45 06/27/16 17:44 06/22/16 09:43 Ondansetron HCl (Zofran) 4 mg Q6H PRN IVP Nausea & Vomiting 06/20/16 17:45 07/20/16 17:44 Polyethylene Glycol (Miralax) 17 gm HSPRN PRN ORAL Constipation 06/20/16 17:45 07/20/16 17:44 Ranitidine HCl (Zantac) 150 mg BEDTIME ORAL 06/21/16 21:00 07/21/16 20:59 06/21/16 21:34 Risperidone (RisperDAL) 3 mg BEDTIME ORAL 06/20/16 21:00 07/20/16 20:59 06/21/16 21:34 Rivaroxaban (Xarelto) 15 mg QPM ORAL 06/20/16 21:00 07/20/16 20:59 06/21/16 17:04 Vancomycin HCl 1 ea 1 ea DAILY PRN MISC Per rx protocol 06/20/16 17:45 07/20/16 17:44 Vancomycin HCl/ Dextrose (Vancomycin/D5W) 275 ml @ 183.708 mls/hr Q24H IVPB 06/20/16 22:00 06/25/16 21:59 06/21/16 21:29 Zolpidem Tartrate (Ambien) 5 mg HSPRN PRN ORAL Insomnia 06/20/16 17:45 07/20/16 17:44 06/22/16 01:49 Jazzy Campuzano NP (Vanchtein) Jun 22, 2016 17:13
[2016-06-22] MEDS: Cefepime HCl 1 GM in D5W 55 ML IV SCH (17:33)
[2016-06-22] MEDS: Xarelto 15mg tab ORAL SCH (17:47)
--- NOTE | 2016-06-22 21:29 | Podiatric Progress Note ---
Assessment/Plan Patient Ashlee Rodriguez is a 75 year old female who was admitted on Jun 20, 2016 at 16:23 with right foot cellulitis Problems: (1) Cellulitis of toe of right foot (2) Foot ulcer, right (3) Gout Assessment/Plan 1 day status post right 2nd toe I&D. No elevated WBC and patient remains afebrile. Uric acid level within normal limits - Continue daily dressing changes - Will monitor the area for improvement of the cellulitis. Awaiting culture and pathology results Subjective Reason for consult Right 2nd toe cellulitis Procedure Performed Right 2nd to I&D Allergies: Coded Allergies: NO KNOWN DRUG ALLERGIES (Unverified Allergy, Unknown, 07/11/15) Subjective Patient states no pain, nausea, vomiting, fevers, or chills Objective Exam Last 24 Hour Vital Signs Date Time Temp Pulse Resp B/P Pulse Ox O2 Delivery O2 Flow Rate FiO2 06/22/16 20:47 69 132/71 06/22/16 20:45 96 Room Air 06/22/16 19:00 98.0 69 20 132/71 Room Air 06/22/16 17:47 129/65 06/22/16 16:00 98.2 60 20 129/65 94 Room Air 06/22/16 13:11 138/72 06/22/16 12:04 97.5 66 20 138/72 99 Nasal Cannula 06/22/16 10:59 62 141/67 06/22/16 10:13 97.7 06/22/16 08:13 67 170/77 06/22/16 08:00 97.7 67 19 170/77 100 Nasal Cannula 06/22/16 06:20 161/71 06/22/16 04:00 97.2 70 20 161/71 88 Room Air 06/22/16 00:27 151/68 06/22/16 00:00 97.2 62 20 151/68 90 Room Air 06/21/16 21:33 67 156/63 Laboratory Tests Test 06/22/16 09:30 06/22/16 20:58 White Blood Count 6.2 K/UL (4.8-10.8) Red Blood Count 3.93 M/UL (4.20-5.40) L Hemoglobin 11.0 G/DL (12.0-16.0) L Hematocrit 35.6 % (37.0-47.0) L Mean Corpuscular Volume 91 FL (80-99) Mean Corpuscular Hemoglobin 28.1 PG (27.0-31.0) Mean Corpuscular Hemoglobin Concent 31.0 G/DL (32.0-36.0) L Red Cell Distribution Width 16.2 % (11.6-14.8) H Platelet Count 156 K/UL (150-450) Mean Platelet Volume 8.1 FL (6.5-10.1) Neutrophils (%) (Auto) 62.7 % (45.0-75.0) Lymphocytes (%) (Auto) 21.1 % (20.0-45.0) Monocytes (%) (Auto) 8.2 % (1.0-10.0) Eosinophils (%) (Auto) 6.7 % (0.0-3.0) H Basophils (%) (Auto) 1.4 % (0.0-2.0) Sodium Level 141 mEQ/L (135-145) Potassium Level 4.3 mEQ/L (3.4-4.9) Chloride Level 99 mEQ/L (98-107) Carbon Dioxide Level 33 mEQ/L (20-30) H Anion Gap 9 (5-15) Blood Urea Nitrogen 10 mg/dL (7-23) Creatinine 0.7 mg/dL (0.5-0.9) Estimat Glomerular Filtration Rate mL/min (>60) Glucose Level 93 mg/dL (74-106) Uric Acid 5.1 mg/dL (3.0-7.5) Calcium Level 8.3 mg/dL (8.6-10.2) L Vancomycin Level Trough Pending Microbiology Date/Time Source Procedure Growth Status 06/20/16 16:25 Blood Blood Culture - Preliminary NO GROWTH AFTER 24 HOURS Resulted 06/21/16 11:30 Foot Right Gram Stain - Final Resulted 06/21/16 11:30 Foot Right Aerobic Culture - Preliminary NO GROWTH Resulted 06/21/16 11:30 Foot Right Anaerobic Culture Pending Resulted Exam Narrative Right foot 2nd toe with erythema and edema. No purulence or malodor noted. Samuel Queen DPM Jun 22, 2016 21:29
[2016-06-22] MEDS: Vancomycin 1gm in D5W 275ml IVPB SCH (22:33)
[2016-06-23] VITALS: BP 120/57
[2016-06-23] MEDS: Zolpidem 5mg tab ORAL PRN ×2 (00:26→20:27)
[2016-06-23] MEDS: HydrALAZINE 25mg tab ORAL SCH ×4 (00:27→17:25)
[2016-06-23] MEDS: Morphine Sulfate 2mg/ml Inj IVP PRN ×3 (03:33→18:24)
[2016-06-23 04:00] VITALS: BP 148/71
[2016-06-23 08:00] VITALS: BP 135/62
[2016-06-23] MEDS: Bisacodyl EC 5mg tab ORAL SCH (09:04)
[2016-06-23] MEDS: Metoprolol 25mg tab ORAL SCH ×2 (09:04→20:28)
[2016-06-23] MEDS: Furosemide 40mg tab ORAL SCH (09:05)
[2016-06-23] MEDS: Allopurinol 100mg Tab ORAL SCH (09:05)
[2016-06-23] MEDS: Depakote 500mg tab ORAL SCH ×2 (09:05→20:28)
[2016-06-23] MEDS: Vancomycin 750mg/D5W 275ml IVPB SCH ×4 (10:29→22:38)
--- NOTE | 2016-06-23 11:45 | Cardiology Report ---
APPROVED REPORT EKG Measurement Heart [id number] Sinus rhythm Single lead electronic pacemaker Ventricular paced rhythm
[2016-06-23 12:09] VITALS: BP 133/68
--- NOTE | 2016-06-23 13:00 | Pulmonology Progress Note ---
Assessment/Plan Assessment/Plan ASSESSMENT R 2nd toe cellulitis s/p I&D R 2 nd toe 06/21 R 2nd toe osteo , likely chronic pain R foot COPD chronic diastolic CHF HTN Hx of A flutter, s/p ablation DM gout depression hx of bipolar hx of ETOH abuse [facility] floor IV abx ID follows fup with wound cx, blood cx + 1/2 GPC ESR WNL, afebrile, no leukocytosis, picture more c/w chronic OM further abx management per ID recommendations podiatry follows s/p I&D R foot ulcer wound care as per podiatry recommendation Venous and Arterial Duplex BLE continue Allopurinol, check uric acid i am BP management with Hydralazine and BB ( as well as rate control) , optimize as needed continue Xarelto, watch for any signs of bleeding continue Lasix, CXR with mild pulmonary congestion, no evidence of acute CHF exacerbation patient with hx of chronic diastolic dysfunction, on daily Lasix, continue monitor renal parameters, lytes uric acid WNL, K stable after Kayexalate pain management bowel regimen LFT, Lipid panel . TSH all WNL, continue statin BS management with SS of insulin, [id number] O2 HHn prn, no respiratory complaints, no evidence of COPD exacerbation r resumed psych meds GI prophylaxis dc plan for tomorrow ID to specify duration and type of antibiotics, case discussed and evaluated by supervising physician Subjective Allergies: Coded Allergies: NO KNOWN DRUG ALLERGIES (Unverified Allergy, Unknown, 07/11/15) Subjective afebrile, no leukocytosis , came in after 6 wks Rx with abx for R 2 nd toe osteo redness , swelling and edema R 2 nd toe returned X ray R foot suspicious for osteo R 2 nd toe s/p I&D R 2 nd toe 06/21 Objective Last 24 Hour Vital Signs Date Time Temp Pulse Resp B/P Pulse Ox O2 Delivery O2 Flow Rate FiO2 06/23/16 12:09 97.7 61 21 133/68 97 Room Air 06/23/16 11:57 133/68 06/23/16 09:04 63 135/62 06/23/16 08:00 97.9 63 20 135/62 97 Room Air 06/23/16 05:51 148/71 06/23/16 04:03 96.9 06/23/16 04:00 68 20 148/71 91 Room Air 06/23/16 00:27 120/57 06/23/16 00:00 96.9 62 20 120/57 92 Room Air 06/22/16 20:47 69 132/71 06/22/16 20:45 96 Room Air 06/22/16 19:00 98.0 69 20 132/71 Room Air 06/22/16 17:47 129/65 06/22/16 16:00 98.2 60 20 129/65 94 Room Air 06/22/16 13:11 138/72 Intake and Output 06/22/16 06/23/16 19:00 07:00 Intake Total 590 ml 930 ml Balance 590 ml 930 ml Intake Oral 480 ml 680 ml IV Total 110 ml 250 ml # Voids 2 7 Objective General Appearance: no acute distress, other - A/A/O x 3 HEENT: normocephalic, atraumatic Respiratory/Chest: lungs clear - with moderate air entry , no respiratory distress, no accessory muscle use Cardiovascular: normal peripheral pulses, normal rate, regularly irregular, no JVD Abdomen: normal bowel sounds, soft, non tender, non distended - obese Genitourinary: normal external genitalia Extremities: pedal pulses normal, other - R 2 nd toe with edema, erythema, tender to touch, Skin: other - R 2 nd toe withdressing C/D/I Neurologic/Psychiatric: abnormal gait - w/c bound, alert Musculoskeletal: atrophy - BLE Microbiology Date/Time Source Procedure Growth Status 06/20/16 16:25 Blood Blood Culture - Preliminary NO GROWTH AFTER 48 HOURS Resulted 06/20/16 16:10 Blood Blood Culture - Preliminary Staphylococcus Sp Coag Neg Resulted 06/21/16 11:30 Foot Right Gram Stain - Final Resulted 06/21/16 11:30 Aerobic Culture - Preliminary Staphylococcus Aureus Resulted 06/21/16 11:30 Foot Right Anaerobic Culture - Preliminary NO ANAEROBES ISOLATED Resulted Laboratory Tests 06/22/16 20:58: Vancomycin Level Trough 9.2 Current Medications Medications (Trade) Dose Ordered Sig/Ibrahima Route PRN Reason Start Time Stop Time Status Last Admin Dose Admin Acetaminophen (Tylenol) 650 mg Q4H PRN ORAL fever 06/20/16 21:00 07/20/16 20:59 Al Hydroxide/Mg Hydroxide (Mylanta II) 30 ml Q8H PRN ORAL dyspepsia 06/20/16 17:30 07/20/16 17:29 Allopurinol (Zyloprim) 100 mg DAILY ORAL 06/21/16 09:00 07/21/16 08:59 06/23/16 09:05 Atorvastatin Calcium (Lipitor) 10 mg BEDTIME ORAL 06/20/16 21:00 07/20/16 20:59 06/22/16 20:46 Bisacodyl (Dulcolax) 10 mg DAILY ORAL 06/21/16 09:00 07/21/16 08:59 06/23/16 09:04 Bupropion HCl (Wellbutrin) 100 mg EVERY 12 HOURS ORAL 06/20/16 21:00 07/20/16 20:59 06/23/16 09:04 Cefepime HCl/ Dextrose (Maxipime/D5W) 55 ml @ 110 mls/hr Q24H IV 06/21/16 18:00 06/28/16 17:59 06/22/16 17:33 Dextrose (Dextrose 50%) STAT PRN IV Hypoglycemia 06/20/16 17:45 07/20/16 17:44 Divalproex Sodium (Depakote) 250 mg EVERY 12 HOURS ORAL 06/20/16 21:00 07/20/16 20:59 06/23/16 09:05 Furosemide (Lasix) 40 mg DAILY ORAL 06/21/16 09:00 07/21/16 08:59 06/23/16 09:05 Hydralazine HCl (Apresoline) 25 mg Q6HR ORAL 06/20/16 21:00 07/20/16 20:59 06/23/16 11:57 Lorazepam (Ativan 2mg/ml 1ml) 0.5 mg Q4H PRN IV For Anxiety 06/20/16 17:45 06/27/16 17:44 Lorazepam (Ativan) 0.5 mg Q4H PRN ORAL For Anxiety 06/20/16 17:30 06/27/16 17:29 Metoprolol Tartrate (Lopressor) 25 mg Q12HR ORAL 06/20/16 21:00 07/20/16 20:59 06/23/16 09:04 Morphine Sulfate (Morphine Sulfate) 1 mg Q4H PRN IVP For Pain 06/20/16 17:45 06/27/16 17:44 06/23/16 12:34 Ondansetron HCl (Zofran) 4 mg Q6H PRN IVP Nausea & Vomiting 06/20/16 17:45 07/20/16 17:44 Polyethylene Glycol (Miralax) 17 gm HSPRN PRN ORAL Constipation 06/20/16 17:45 07/20/16 17:44 Ranitidine HCl 150 mg 150 mg BEDTIME ORAL 06/21/16 21:00 07/21/16 20:59 06/22/16 20:46 Risperidone (RisperDAL) 3 mg BEDTIME ORAL 06/20/16 21:00 07/20/16 20:59 06/22/16 20:46 Rivaroxaban (Xarelto) 15 mg QPM ORAL 06/20/16 21:00 07/20/16 20:59 06/22/16 17:47 Vancomycin HCl 1 ea 1 ea DAILY PRN MISC Per rx protocol 06/20/16 17:45 07/20/16 17:44 Vancomycin HCl/ Dextrose (Vancomycin/D5W) 275 ml @ 183.708 mls/hr Q12H IVPB 06/23/16 10:00 06/28/16 09:59 06/23/16 10:29 Zolpidem Tartrate (Ambien) 5 mg HSPRN PRN ORAL Insomnia 06/20/16 17:45 07/20/16 17:44 06/23/16 00:26 Jazzy Campuzano NP ([facility]anchtein) Jun 23, 2016 13:00
[2016-06-23 16:00] VITALS: BP 152/75
[2016-06-23] MEDS: Xarelto 15mg tab ORAL SCH (16:23)
[2016-06-23] MEDS: Cefepime HCl 1 GM in D5W 55 ML IV SCH (18:24)
[2016-06-23 20:00] VITALS: BP 188/63
--- NOTE | 2016-06-23 21:05 | Podiatric Progress Note ---
Assessment/Plan Patient Ashlee Rodriguez is a 75 year old female who was admitted on Jun 20, 2016 at 16:23 with right 2nd toe cellulitis Problems: Assessment/Plan - 2 days status post right 2nd toe I&D. 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 Questionable if inflammation was caused by underlying osteomyelitis and/or gout flare. Preliminary culture results show staph aureus. Awaiting pathology results. Mild improvement in cellulitis. Will continue to monitor for improvement. Will continue daily dressing changes until drainage has stopped Subjective Reason for consult Right foot cellulitis Procedure Performed Right foot 2nd toe I&D 06/21/16 Allergies: Coded Allergies: NO KNOWN DRUG ALLERGIES (Unverified Allergy, Unknown, 07/11/15) Subjective Patient denies pain, nausea, vomiting, fevers, or chills Objective Exam Last 24 Hour Vital Signs Date Time Temp Pulse Resp B/P Pulse Ox O2 Delivery O2 Flow Rate FiO2 06/23/16 20:28 62 152/75 06/23/16 18:54 97.7 06/23/16 17:25 152/75 06/23/16 16:00 97.7 62 18 152/75 93 Room Air 06/23/16 12:09 97.7 61 21 133/68 97 Room Air 06/23/16 11:57 133/68 06/23/16 09:04 63 135/62 06/23/16 08:00 97.9 63 20 135/62 97 Room Air 06/23/16 05:51 148/71 06/23/16 04:00 68 20 148/71 91 Room Air 06/23/16 00:27 120/57 06/23/16 00:00 96.9 62 20 120/57 92 Room Air Microbiology Date/Time Source Procedure Growth Status 06/20/16 16:25 Blood Blood Culture - Preliminary NO GROWTH AFTER 48 HOURS Resulted 06/21/16 11:30 Foot Right Gram Stain - Final Resulted 06/21/16 11:30 Aerobic Culture - Preliminary Staphylococcus Aureus Resulted 06/21/16 11:30 Foot Right Anaerobic Culture - Preliminary NO ANAEROBES ISOLATED Resulted Exam Narrative Right dorsal 2nd toe with mild improvement in erythema and edema. Small wound present measuring approximately 3mm x 3mm. Mild serosanguineous drainage present. No purulence or malodor noted Samuel Queen DPM Jun 23, 2016 21:05
[2016-06-24] VITALS: BP 167/71
[2016-06-24] MEDS: HydrALAZINE 25mg tab ORAL SCH ×5 (00:43→17:24)
[2016-06-24] MEDS: Morphine Sulfate 2mg/ml Inj IVP PRN ×2 (07:09→18:10)
[2016-06-24 07:19] LABS: ANION GAP 15 (5-15); CALCIUM 8.9 mg/dL (8.6-10.2); CARBON DIOXIDE 30 mEQ/L (20-30); CHLORIDE 95 mEQ/L (98-107); CREATININE 0.7 mg/dL (0.5-0.9); HEMOLYSIS 12; POTASSIUM 3.9 mEQ/L (3.4-4.9); SODIUM 140 mEQ/L (135-145)
[2016-06-24 08:00] VITALS: BP 118/75
--- NOTE | 2016-06-24 08:37 | Infectious Diseases Prog Note ---
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 Right third toe soft tissue swelling, nonspecific. Associated bone destruction or other acute bony pathology not excludable. - MRI 05/2016: Findings suspicious for osteomyelitis involving the right second middle and distal phalanges - CRP, ESR WNL // Afebrile without leukocytosis // +ve Blood Cx : CoNS 1/2 ( contaminant ) // Nonambulatory / wheelchair bound // NH resident // h/o MRSA, VRE colonization // NKDA // Full Code PLAN: - continue empiric IV vancomycin,d# 5 / 10 , DC cefepime d# 5 - f/u cultures - monitor CBC, temperatures - monitor BMP - wound care Subjective Constitutional: Denies: anorexia, chills, drenching sweats, fatigue, fever, no symptoms, other Allergies: Coded Allergies: NO KNOWN DRUG ALLERGIES (Unverified Allergy, Unknown, 07/11/15) Objective Vital Signs Last 24 Hour Vital Signs Date Time Temp Pulse Resp B/P Pulse Ox O2 Delivery O2 Flow Rate FiO2 06/24/16 05:45 152/75 06/24/16 04:00 97.2 68 20 92 Room Air 06/24/16 00:43 152/75 06/24/16 00:00 97.3 62 22 167/71 94 Room Air 06/23/16 20:28 62 152/75 06/23/16 20:00 98.1 71 22 188/63 95 Room Air 06/23/16 18:54 97.7 06/23/16 17:25 152/75 06/23/16 16:00 97.7 62 18 152/75 93 Room Air 06/23/16 12:09 97.7 61 21 133/68 97 Room Air 06/23/16 11:57 133/68 06/23/16 09:04 63 135/62 Height (Feet): 5 Height (Inches): 1.00 Weight (Pounds): 170 HEENT: anicteric Respiratory/Chest: normal breath sounds Cardiovascular: regular rhythm Abdomen: soft, non tender, no organomegaly Microbiology Date/Time Source Procedure Growth Status 06/21/16 11:30 Foot Right Gram Stain - Final Resulted 06/21/16 11:30 Aerobic Culture - Final Staphylococcus Aureus - Mrsa Resulted 06/21/16 11:30 Foot Right Anaerobic Culture - Preliminary NO ANAEROBES ISOLATED Resulted Laboratory Tests Test 06/24/16 05:10 Sodium Level 140 mEQ/L (135-145) Potassium Level 3.9 mEQ/L (3.4-4.9) Chloride Level 95 mEQ/L (98-107) L Carbon Dioxide Level 30 mEQ/L (20-30) Anion Gap 15 (5-15) Blood Urea Nitrogen 11 mg/dL (7-23) Creatinine 0.7 mg/dL (0.5-0.9) Estimat Glomerular Filtration Rate mL/min (>60) Glucose Level 87 mg/dL (74-106) Calcium Level 8.9 mg/dL (8.6-10.2) Current Medications Medications (Trade) Dose Ordered Sig/Ibrahima Route PRN Reason Start Time Stop Time Status Last Admin Dose Admin Acetaminophen (Tylenol) 650 mg Q4H PRN ORAL fever 06/20/16 21:00 07/20/16 20:59 Al Hydroxide/Mg Hydroxide (Mylanta II) 30 ml Q8H PRN ORAL dyspepsia 06/20/16 17:30 07/20/16 17:29 Allopurinol (Zyloprim) 100 mg DAILY ORAL 06/21/16 09:00 07/21/16 08:59 06/23/16 09:05 Atorvastatin Calcium (Lipitor) 10 mg BEDTIME ORAL 06/20/16 21:00 07/20/16 20:59 06/23/16 20:28 Bisacodyl (Dulcolax) 10 mg DAILY ORAL 06/21/16 09:00 07/21/16 08:59 06/23/16 09:04 Bupropion HCl (Wellbutrin) 100 mg EVERY 12 HOURS ORAL 06/20/16 21:00 07/20/16 20:59 06/23/16 20:28 Cefepime HCl/ Dextrose (Maxipime/D5W) 55 ml @ 110 mls/hr Q24H IV 06/21/16 18:00 06/28/16 17:59 06/23/16 18:24 Dextrose (Dextrose 50%) STAT PRN IV Hypoglycemia 06/20/16 17:45 07/20/16 17:44 Divalproex Sodium (Depakote) 250 mg EVERY 12 HOURS ORAL 06/20/16 21:00 07/20/16 20:59 06/23/16 20:28 Furosemide (Lasix) 40 mg DAILY ORAL 06/21/16 09:00 07/21/16 08:59 06/23/16 09:05 Hydralazine HCl (Apresoline) 25 mg Q6HR ORAL 06/20/16 21:00 07/20/16 20:59 06/24/16 05:45 Lorazepam (Ativan 2mg/ml 1ml) 0.5 mg Q4H PRN IV For Anxiety 06/20/16 17:45 06/27/16 17:44 Lorazepam (Ativan) 0.5 mg Q4H PRN ORAL For Anxiety 06/20/16 17:30 06/27/16 17:29 06/23/16 18:24 Metoprolol Tartrate (Lopressor) 25 mg Q12HR ORAL 06/20/16 21:00 07/20/16 20:59 06/23/16 20:28 Morphine Sulfate (Morphine Sulfate) 1 mg Q4H PRN IVP For Pain 06/20/16 17:45 06/27/16 17:44 06/24/16 07:09 Ondansetron HCl (Zofran) 4 mg Q6H PRN IVP Nausea & Vomiting 06/20/16 17:45 07/20/16 17:44 Polyethylene Glycol (Miralax) 17 gm HSPRN PRN ORAL Constipation 06/20/16 17:45 07/20/16 17:44 Ranitidine HCl 150 mg 150 mg BEDTIME ORAL 06/21/16 21:00 07/21/16 20:59 06/23/16 20:27 Risperidone (RisperDAL) 3 mg BEDTIME ORAL 06/20/16 21:00 07/20/16 20:59 06/23/16 20:29 Rivaroxaban (Xarelto) 15 mg QPM ORAL 06/20/16 21:00 07/20/16 20:59 06/23/16 16:23 Vancomycin HCl 1 ea 1 ea DAILY PRN MISC Per rx protocol 06/20/16 17:45 07/20/16 17:44 Vancomycin HCl/ Dextrose (Vancomycin/D5W) 275 ml @ 183.708 mls/hr Q12H IVPB 06/23/16 10:00 06/28/16 09:59 06/23/16 22:38 Zolpidem Tartrate (Ambien) 5 mg HSPRN PRN ORAL Insomnia 06/20/16 17:45 07/20/16 17:44 06/23/16 20:27 NETO ZEPEDA M.D. Jun 24, 2016 08:37
[2016-06-24] MEDS: Depakote 500mg tab ORAL SCH ×2 (10:12→20:52)
[2016-06-24] MEDS: Bisacodyl EC 5mg tab ORAL SCH (10:14)
[2016-06-24] MEDS: Furosemide 40mg tab ORAL SCH (10:14)
[2016-06-24] MEDS: Metoprolol 25mg tab ORAL SCH ×2 (10:15→20:53)
[2016-06-24] MEDS: Allopurinol 100mg Tab ORAL SCH (10:16)
[2016-06-24] MEDS: Vancomycin 750mg/D5W 275ml IVPB SCH ×4 (10:20→22:25)
[2016-06-24 12:00] VITALS: BP 111/66
[2016-06-24 16:00] VITALS: BP 137/69
[2016-06-24] MEDS: Xarelto 15mg tab ORAL SCH (16:17)
[2016-06-24 20:00] VITALS: BP 161/72
[2016-06-24] MEDS: Zolpidem 5mg tab ORAL PRN (20:52)
[2016-06-25] VITALS (7 sets, daily range): BP systolic 135–179; BP diastolic 68–90
[2016-06-25] MEDS: HydrALAZINE 25mg tab ORAL SCH ×4 (00:29→17:08)
[2016-06-25] MEDS: Morphine Sulfate 2mg/ml Inj IVP PRN ×2 (00:30→08:31)
--- NOTE | 2016-06-25 08:08 | Podiatric Progress Note ---
Assessment/Plan Patient Ashlee Rodriguez is a 75 year old female who was admitted on Jun 20, 2016 at 16:23 with right 2nd toe cellulitis Problems: Assessment/Plan - Right 2nd toe cellulitis with improving erythema and edema. Wound is no longer draining. +MRSA and gout. History of possible osteo in the same area May. Status post 6 weeks of IV antibiotics. Patient has remained afebrile and has had no elevated WBC throughout this admission. Continue antibiotics per infectious disease recommendations - Nursing staff spoke to pathology dept. Final report on likely eval of tophaceous gout to be posted today - Discontinue dressing changes and leave the area open to air. If any drainage is noted cover with bandaid Subjective Reason for consult Right 2nd toe cellulitis Allergies: Coded Allergies: NO KNOWN DRUG ALLERGIES (Unverified Allergy, Unknown, 07/11/15) Subjective Patient is doing well. No pain, nausea, vomiting, fevers, or chills reported Objective Exam Last 24 Hour Vital Signs Date Time Temp Pulse Resp B/P Pulse Ox O2 Delivery O2 Flow Rate FiO2 06/25/16 06:10 158/74 06/25/16 04:00 97.0 66 18 158/74 92 Room Air 06/25/16 01:00 98.2 06/25/16 00:30 97.9 62 18 155/77 95 Room Air 06/25/16 00:29 155/77 06/24/16 20:53 75 156/85 06/24/16 20:00 98.2 64 20 161/72 96 Room Air 06/24/16 17:24 137/69 06/24/16 16:00 98.1 64 20 137/69 95 Room Air 06/24/16 12:00 111/66 06/24/16 12:00 96.6 60 16 111/66 97 Room Air 06/24/16 10:15 62 157/71 06/24/16 08:00 96.4 80 20 118/75 95 Room Air Laboratory Tests Test 06/24/16 20:50 Vancomycin Level Trough 14.8 ug/mL (5.0-12.0) H Microbiology Date/Time Source Procedure Growth Status 06/20/16 16:25 Blood Blood Culture - Preliminary NO GROWTH AFTER 4 DAYS Resulted 06/21/16 11:30 Foot Right Gram Stain - Final Resulted 06/21/16 11:30 Aerobic Culture - Final Staphylococcus Aureus - Mrsa Resulted 06/21/16 11:30 Foot Right Anaerobic Culture - Preliminary NO ANAEROBES ISOLATED Resulted Exam Narrative The right 2nd toe wound is no longer draining. Erythema and edema is improving Samuel Queen DPM Jun 25, 2016 08:08
[2016-06-25] MEDS: Depakote 500mg tab ORAL SCH ×2 (08:26→20:38)
[2016-06-25] MEDS: Furosemide 40mg tab ORAL SCH (08:27)
[2016-06-25] MEDS: Bisacodyl EC 5mg tab ORAL SCH (08:27)
[2016-06-25] MEDS: Metoprolol 25mg tab ORAL SCH ×2 (08:28→20:39)
[2016-06-25] MEDS: Allopurinol 100mg Tab ORAL SCH (08:29)
--- NOTE | 2016-06-25 10:34 | Infectious Diseases Prog Note ---
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 Right third toe soft tissue swelling, nonspecific. Associated bone destruction or other acute bony pathology not excludable. - MRI 05/2016: Findings suspicious for osteomyelitis involving the right second middle and distal phalanges - CRP, ESR WNL // Afebrile without leukocytosis // +ve Blood Cx : CoNS 1/2 ( contaminant ) // Nonambulatory / wheelchair bound // NH resident // h/o MRSA, VRE colonization // NKDA // Full Code PLAN: - continue IV vancomycin,d# 6 / 10 ( 06/24 SP cefepime d# 5 ) - f/u cultures - monitor CBC, temperatures - monitor BMP - wound care Subjective Allergies: Coded Allergies: NO KNOWN DRUG ALLERGIES (Unverified Allergy, Unknown, 07/11/15) Subjective remains afebrile. no new complaint Objective Vital Signs Last 24 Hour Vital Signs Date Time Temp Pulse Resp B/P Pulse Ox O2 Delivery O2 Flow Rate FiO2 06/25/16 08:28 75 165/90 06/25/16 08:00 97.0 74 20 179/80 95 Room Air 06/25/16 06:10 158/74 06/25/16 04:00 97.0 66 18 158/74 92 Room Air 06/25/16 01:00 98.2 06/25/16 00:30 97.9 62 18 155/77 95 Room Air 06/25/16 00:29 155/77 06/24/16 20:53 75 156/85 06/24/16 20:00 98.2 64 20 161/72 96 Room Air 06/24/16 17:24 137/69 06/24/16 16:00 98.1 64 20 137/69 95 Room Air 06/24/16 12:00 111/66 06/24/16 12:00 96.6 60 16 111/66 97 Room Air Height (Feet): 5 Height (Inches): 1.00 Weight (Pounds): 170 General Appearance: no acute distress Respiratory/Chest: no respiratory distress Cardiovascular: normal rate, regular rhythm Abdomen: normal bowel sounds, soft, non tender, non distended Extremities: other - foot bandaged Laboratory Tests Test 06/24/16 20:50 Vancomycin Level Trough 14.8 ug/mL (5.0-12.0) H Current Medications Medications (Trade) Dose Ordered Sig/Ibrahima Route PRN Reason Start Time Stop Time Status Last Admin Dose Admin Acetaminophen (Tylenol) 650 mg Q4H PRN ORAL fever 06/20/16 21:00 07/20/16 20:59 Al Hydroxide/Mg Hydroxide (Mylanta II) 30 ml Q8H PRN ORAL dyspepsia 06/20/16 17:30 07/20/16 17:29 Allopurinol (Zyloprim) 100 mg DAILY ORAL 06/21/16 09:00 07/21/16 08:59 06/25/16 08:29 Atorvastatin Calcium (Lipitor) 10 mg BEDTIME ORAL 06/20/16 21:00 07/20/16 20:59 06/24/16 20:52 Bisacodyl (Dulcolax) 10 mg DAILY ORAL 06/21/16 09:00 07/21/16 08:59 06/25/16 08:27 Bupropion HCl (Wellbutrin) 100 mg EVERY 12 HOURS ORAL 06/20/16 21:00 07/20/16 20:59 06/25/16 08:29 Dextrose (Dextrose 50%) STAT PRN IV Hypoglycemia 06/20/16 17:45 07/20/16 17:44 Divalproex Sodium (Depakote) 250 mg EVERY 12 HOURS ORAL 06/20/16 21:00 07/20/16 20:59 06/25/16 08:26 Furosemide (Lasix) 40 mg DAILY ORAL 06/21/16 09:00 07/21/16 08:59 06/25/16 08:27 Hydralazine HCl (Apresoline) 25 mg Q6HR ORAL 06/20/16 21:00 07/20/16 20:59 06/25/16 06:10 Lorazepam (Ativan 2mg/ml 1ml) 0.5 mg Q4H PRN IV For Anxiety 06/20/16 17:45 06/27/16 17:44 Lorazepam (Ativan) 0.5 mg Q4H PRN ORAL For Anxiety 06/20/16 17:30 06/27/16 17:29 06/23/16 18:24 Metoprolol Tartrate (Lopressor) 25 mg Q12HR ORAL 06/20/16 21:00 07/20/16 20:59 06/25/16 08:28 Morphine Sulfate (Morphine Sulfate) 1 mg Q4H PRN IVP For Pain 06/20/16 17:45 06/27/16 17:44 06/25/16 08:31 Ondansetron HCl (Zofran) 4 mg Q6H PRN IVP Nausea & Vomiting 06/20/16 17:45 07/20/16 17:44 Polyethylene Glycol (Miralax) 17 gm HSPRN PRN ORAL Constipation 06/20/16 17:45 07/20/16 17:44 Ranitidine HCl 150 mg 150 mg BEDTIME ORAL 06/21/16 21:00 07/21/16 20:59 06/24/16 20:52 Risperidone (RisperDAL) 3 mg BEDTIME ORAL 06/20/16 21:00 07/20/16 20:59 06/24/16 20:52 Rivaroxaban (Xarelto) 15 mg QPM ORAL 06/20/16 21:00 07/20/16 20:59 06/24/16 16:17 Vancomycin HCl (Vanco rx to dose) 1 ea DAILY PRN MISC Per rx protocol 06/20/16 17:45 07/20/16 17:44 Vancomycin HCl/ Dextrose (Vancomycin/D5W) 275 ml @ 183.708 mls/hr Q12H IVPB 06/23/16 10:00 06/28/16 09:59 06/24/16 22:25 Zolpidem Tartrate (Ambien) 5 mg HSPRN PRN ORAL Insomnia 06/20/16 17:45 07/20/16 17:44 06/24/16 20:52 ANTONY FELDMAN Jun 25, 2016 10:34
[2016-06-25] MEDS: Vancomycin 750mg/D5W 275ml IVPB SCH ×4 (11:19→22:07)
[2016-06-25] MEDS: Xarelto 15mg tab ORAL SCH (17:08)
--- NOTE | 2016-06-25 23:54 | Pulmonology Progress Note ---
Assessment/Plan Problems: (1) Cellulitis of toe of right foot (2) Major depression (3) Thalamic pain syndrome (4) Atrial flutter with controlled response Assessment/Plan IV antibiotics podiatry to follow wound care continue pain meds Subjective ROS Limited/Unobtainable: No Interval Events: late entery for yesterday, doing bettter n HEENT: Repors: no symptoms Respiratory: Reports: no symptoms Cardiovascular: Reports: no symptoms Gastrointestinal/Abdominal: Reports: no symptoms Allergies: Coded Allergies: NO KNOWN DRUG ALLERGIES (Unverified Allergy, Unknown, 07/11/15) Objective Last 24 Hour Vital Signs Date Time Temp Pulse Resp B/P Pulse Ox O2 Delivery O2 Flow Rate FiO2 06/25/16 20:39 72 135/68 06/25/16 20:00 97.9 72 18 135/68 97 Room Air 06/25/16 17:08 136/75 06/25/16 16:00 97.7 61 18 136/75 98 Room Air 06/25/16 12:59 168/86 06/25/16 11:49 96.4 61 18 152/70 96 Room Air 06/25/16 08:28 65 165/90 06/25/16 08:28 75 165/90 06/25/16 08:00 97.0 74 20 179/80 95 Room Air 06/25/16 06:10 158/74 06/25/16 04:00 97.0 66 18 158/74 92 Room Air 06/25/16 01:00 98.2 06/25/16 00:30 97.9 62 18 155/77 95 Room Air 06/25/16 00:29 155/77 Intake and Output 06/24/16 06/25/16 19:00 07:00 Intake Total 600 ml 987.416 ml Balance 600 ml 987.416 ml Intake Oral 600 ml 620 ml IV Total 367.416 ml # Voids 2 4 # Bowel Movements 2 General Appearance: WD/WN HEENT: normocephalic, atraumatic Respiratory/Chest: chest wall non-tender, lungs clear Breasts: no masses Cardiovascular: normal peripheral pulses, regular rhythm Abdomen: normal bowel sounds, soft, non tender, no scars Extremities: no cyanosis, no clubbing Skin: no rash Current Medications Medications (Trade) Dose Ordered Sig/Ibrahima Route PRN Reason Start Time Stop Time Status Last Admin Dose Admin Acetaminophen (Tylenol) 650 mg Q4H PRN ORAL fever 06/20/16 21:00 07/20/16 20:59 Al Hydroxide/Mg Hydroxide (Mylanta II) 30 ml Q8H PRN ORAL dyspepsia 06/20/16 17:30 07/20/16 17:29 06/25/16 20:38 Allopurinol (Zyloprim) 100 mg DAILY ORAL 06/21/16 09:00 07/21/16 08:59 06/25/16 08:29 Atorvastatin Calcium (Lipitor) 10 mg BEDTIME ORAL 06/20/16 21:00 07/20/16 20:59 06/25/16 20:39 Bisacodyl (Dulcolax) 10 mg DAILY ORAL 06/21/16 09:00 07/21/16 08:59 06/25/16 08:27 Bupropion HCl (Wellbutrin) 100 mg EVERY 12 HOURS ORAL 06/20/16 21:00 07/20/16 20:59 06/25/16 20:39 Dextrose (Dextrose 50%) STAT PRN IV Hypoglycemia 06/20/16 17:45 07/20/16 17:44 Divalproex Sodium (Depakote) 250 mg EVERY 12 HOURS ORAL 06/20/16 21:00 07/20/16 20:59 06/25/16 20:38 Furosemide (Lasix) 40 mg DAILY ORAL 06/21/16 09:00 07/21/16 08:59 06/25/16 08:27 Hydralazine HCl (Apresoline) 25 mg Q6HR ORAL 06/20/16 21:00 07/20/16 20:59 06/25/16 17:08 Lorazepam (Ativan 2mg/ml 1ml) 0.5 mg Q4H PRN IV For Anxiety 06/20/16 17:45 06/27/16 17:44 Lorazepam (Ativan) 0.5 mg Q4H PRN ORAL For Anxiety 06/20/16 17:30 06/27/16 17:29 06/23/16 18:24 Metoprolol Tartrate (Lopressor) 25 mg Q12HR ORAL 06/20/16 21:00 07/20/16 20:59 06/25/16 20:39 Morphine Sulfate (Morphine Sulfate) 1 mg Q4H PRN IVP For Pain 06/20/16 17:45 06/27/16 17:44 06/25/16 08:31 Ondansetron HCl (Zofran) 4 mg Q6H PRN IVP Nausea & Vomiting 06/20/16 17:45 07/20/16 17:44 Polyethylene Glycol (Miralax) 17 gm HSPRN PRN ORAL Constipation 06/20/16 17:45 07/20/16 17:44 Ranitidine HCl 150 mg 150 mg BEDTIME ORAL 06/21/16 21:00 07/21/16 20:59 06/25/16 20:38 Risperidone (RisperDAL) 3 mg BEDTIME ORAL 06/20/16 21:00 07/20/16 20:59 06/25/16 20:39 Rivaroxaban (Xarelto) 15 mg QPM ORAL 06/20/16 21:00 07/20/16 20:59 06/25/16 17:08 Vancomycin HCl (Vanco rx to dose) 1 ea DAILY PRN MISC Per rx protocol 06/20/16 17:45 07/20/16 17:44 Vancomycin HCl/ Dextrose (Vancomycin/D5W) 275 ml @ 183.708 mls/hr Q12H IVPB 06/23/16 10:00 06/28/16 09:59 06/25/16 22:07 Zolpidem Tartrate (Ambien) 5 mg HSPRN PRN ORAL Insomnia 06/20/16 17:45 07/20/16 17:44 06/24/16 20:52 GAYLE AGGARWAL Jun 25, 2016 23:54
--- NOTE | 2016-06-25 23:54 | Pulmonology Progress Note ---
Assessment/Plan Problems: (1) Osteomyelitis of toe of right foot (2) Atrial flutter with controlled response (3) Depression Assessment/Plan all reviewed labs reviwed continue antibiotics as ordered by ID wound care Subjective ROS Limited/Unobtainable: No Constitutional: Reports: no symptoms HEENT: Repors: no symptoms Respiratory: Reports: no symptoms Gastrointestinal/Abdominal: Reports: no symptoms Allergies: Coded Allergies: NO KNOWN DRUG ALLERGIES (Unverified Allergy, Unknown, 07/11/15) Objective Last 24 Hour Vital Signs Date Time Temp Pulse Resp B/P Pulse Ox O2 Delivery O2 Flow Rate FiO2 06/25/16 20:39 72 135/68 06/25/16 20:00 97.9 72 18 135/68 97 Room Air 06/25/16 17:08 136/75 06/25/16 16:00 97.7 61 18 136/75 98 Room Air 06/25/16 12:59 168/86 06/25/16 11:49 96.4 61 18 152/70 96 Room Air 06/25/16 08:28 65 165/90 06/25/16 08:28 75 165/90 06/25/16 08:00 97.0 74 20 179/80 95 Room Air 06/25/16 06:10 158/74 06/25/16 04:00 97.0 66 18 158/74 92 Room Air 06/25/16 01:00 98.2 06/25/16 00:30 97.9 62 18 155/77 95 Room Air 06/25/16 00:29 155/77 Intake and Output 06/24/16 06/25/16 19:00 07:00 Intake Total 600 ml 987.416 ml Balance 600 ml 987.416 ml Intake Oral 600 ml 620 ml IV Total 367.416 ml # Voids 2 4 # Bowel Movements 2 General Appearance: WD/WN HEENT: normocephalic Respiratory/Chest: chest wall non-tender, normal breath sounds Cardiovascular: normal peripheral pulses, normal rate Abdomen: normal bowel sounds, no organomegaly Extremities: no cyanosis Skin: no rash Current Medications Medications (Trade) Dose Ordered Sig/Ibrahima Route PRN Reason Start Time Stop Time Status Last Admin Dose Admin Acetaminophen (Tylenol) 650 mg Q4H PRN ORAL fever 06/20/16 21:00 07/20/16 20:59 Al Hydroxide/Mg Hydroxide (Mylanta II) 30 ml Q8H PRN ORAL dyspepsia 06/20/16 17:30 07/20/16 17:29 06/25/16 20:38 Allopurinol (Zyloprim) 100 mg DAILY ORAL 06/21/16 09:00 07/21/16 08:59 06/25/16 08:29 Atorvastatin Calcium (Lipitor) 10 mg BEDTIME ORAL 06/20/16 21:00 07/20/16 20:59 06/25/16 20:39 Bisacodyl (Dulcolax) 10 mg DAILY ORAL 06/21/16 09:00 07/21/16 08:59 06/25/16 08:27 Bupropion HCl (Wellbutrin) 100 mg EVERY 12 HOURS ORAL 06/20/16 21:00 07/20/16 20:59 06/25/16 20:39 Dextrose (Dextrose 50%) STAT PRN IV Hypoglycemia 06/20/16 17:45 07/20/16 17:44 Divalproex Sodium (Depakote) 250 mg EVERY 12 HOURS ORAL 06/20/16 21:00 07/20/16 20:59 06/25/16 20:38 Furosemide (Lasix) 40 mg DAILY ORAL 06/21/16 09:00 07/21/16 08:59 06/25/16 08:27 Hydralazine HCl (Apresoline) 25 mg Q6HR ORAL 06/20/16 21:00 07/20/16 20:59 06/25/16 17:08 Lorazepam (Ativan 2mg/ml 1ml) 0.5 mg Q4H PRN IV For Anxiety 06/20/16 17:45 06/27/16 17:44 Lorazepam (Ativan) 0.5 mg Q4H PRN ORAL For Anxiety 06/20/16 17:30 06/27/16 17:29 06/23/16 18:24 Metoprolol Tartrate (Lopressor) 25 mg Q12HR ORAL 06/20/16 21:00 07/20/16 20:59 06/25/16 20:39 Morphine Sulfate (Morphine Sulfate) 1 mg Q4H PRN IVP For Pain 06/20/16 17:45 06/27/16 17:44 06/25/16 08:31 Ondansetron HCl (Zofran) 4 mg Q6H PRN IVP Nausea & Vomiting 06/20/16 17:45 07/20/16 17:44 Polyethylene Glycol (Miralax) 17 gm HSPRN PRN ORAL Constipation 06/20/16 17:45 07/20/16 17:44 Ranitidine HCl 150 mg 150 mg BEDTIME ORAL 06/21/16 21:00 07/21/16 20:59 06/25/16 20:38 Risperidone (RisperDAL) 3 mg BEDTIME ORAL 06/20/16 21:00 07/20/16 20:59 06/25/16 20:39 Rivaroxaban (Xarelto) 15 mg QPM ORAL 06/20/16 21:00 07/20/16 20:59 06/25/16 17:08 Vancomycin HCl (Vanco rx to dose) 1 ea DAILY PRN MISC Per rx protocol 06/20/16 17:45 07/20/16 17:44 Vancomycin HCl/ Dextrose (Vancomycin/D5W) 275 ml @ 183.708 mls/hr Q12H IVPB 06/23/16 10:00 06/28/16 09:59 06/25/16 22:07 Zolpidem Tartrate (Ambien) 5 mg HSPRN PRN ORAL Insomnia 06/20/16 17:45 07/20/16 17:44 06/24/16 20:52 GAYLE AGGARWAL Jun 25, 2016 23:54
[2016-06-26] VITALS: BP 116/56
[2016-06-26 04:00] VITALS: BP 138/69
[2016-06-26] MEDS: Morphine Sulfate 2mg/ml Inj IVP PRN (05:02)
[2016-06-26] MEDS: HydrALAZINE 25mg tab ORAL SCH ×4 (06:01→18:23)
[2016-06-26 08:35] VITALS: BP 142/72
[2016-06-26] MEDS: Bisacodyl EC 5mg tab ORAL SCH (09:43)
[2016-06-26] MEDS: Depakote 500mg tab ORAL SCH ×2 (09:43→20:46)
[2016-06-26] MEDS: Furosemide 40mg tab ORAL SCH (09:44)
[2016-06-26] MEDS: Metoprolol 25mg tab ORAL SCH ×2 (09:44→20:46)
[2016-06-26] MEDS: Allopurinol 100mg Tab ORAL SCH (09:45)
[2016-06-26] MEDS: Vancomycin 750mg/D5W 275ml IVPB SCH ×4 (09:48→22:00)
[2016-06-26 12:06] VITALS: BP 124/65
[2016-06-26 16:00] VITALS: BP 151/59
--- NOTE | 2016-06-26 18:18 | Infectious Diseases Prog Note ---
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 Right third toe soft tissue swelling, nonspecific. Associated bone destruction or other acute bony pathology not excludable. - MRI 05/2016: Findings suspicious for osteomyelitis involving the right second middle and distal phalanges - CRP, ESR WNL // Afebrile without leukocytosis // +ve Blood Cx : CoNS / ( contaminant ) // Nonambulatory / wheelchair bound // NH resident // h/o MRSA, VRE colonization // NKDA // Full Code PLAN: - continue IV vancomycin,d# 7 / 10 ( 06/24 SP cefepime d# 5 ) - f/u cultures - monitor CBC, temperatures - monitor BMP - wound care Subjective Constitutional: Denies: anorexia, chills, drenching sweats, fatigue, fever, no symptoms, other Allergies: Coded Allergies: NO KNOWN DRUG ALLERGIES (Unverified Allergy, Unknown, 07/11/15) Objective Vital Signs Last 24 Hour Vital Signs Date Time Temp Pulse Resp B/P Pulse Ox O2 Delivery O2 Flow Rate FiO2 06/26/16 16:00 98.1 61 20 151/59 95 Room Air 06/26/16 12:06 97.4 93 20 124/65 97 Room Air 06/26/16 12:00 119/49 06/26/16 09:44 70 130/53 06/26/16 08:35 97.5 72 20 142/72 95 Room Air 06/26/16 06:01 138/69 06/26/16 05:33 97.2 06/26/16 04:00 97.5 68 18 138/69 95 Room Air 06/26/16 00:00 97.2 62 16 116/56 95 Room Air 06/26/16 00:00 116/56 06/25/16 20:39 72 135/68 06/25/16 20:00 97.9 72 18 135/68 97 Room Air Height (Feet): 5 Height (Inches): 1.00 Weight (Pounds): 170 HEENT: anicteric Respiratory/Chest: normal breath sounds Cardiovascular: regularly irregular Abdomen: no mass Laboratory Tests Test 06/26/16 09:30 Vancomycin Level Trough 16.6 ug/mL (5.0-12.0) H Current Medications Medications (Trade) Dose Ordered Sig/Ibrahima Route PRN Reason Start Time Stop Time Status Last Admin Dose Admin Acetaminophen (Tylenol) 650 mg Q4H PRN ORAL fever 06/20/16 21:00 07/20/16 20:59 Al Hydroxide/Mg Hydroxide (Mylanta II) 30 ml Q8H PRN ORAL dyspepsia 06/20/16 17:30 07/20/16 17:29 06/25/16 20:38 Allopurinol (Zyloprim) 100 mg DAILY ORAL 06/21/16 09:00 07/21/16 08:59 06/26/16 09:45 Atorvastatin Calcium (Lipitor) 10 mg BEDTIME ORAL 06/20/16 21:00 07/20/16 20:59 06/25/16 20:39 Bisacodyl (Dulcolax) 10 mg DAILY ORAL 06/21/16 09:00 07/21/16 08:59 06/26/16 09:43 Bupropion HCl (Wellbutrin) 100 mg EVERY 12 HOURS ORAL 06/20/16 21:00 07/20/16 20:59 06/26/16 09:44 Dextrose (Dextrose 50%) STAT PRN IV Hypoglycemia 06/20/16 17:45 07/20/16 17:44 Divalproex Sodium (Depakote) 250 mg EVERY 12 HOURS ORAL 06/20/16 21:00 07/20/16 20:59 06/26/16 09:43 Furosemide (Lasix) 40 mg DAILY ORAL 06/21/16 09:00 07/21/16 08:59 06/26/16 09:44 Hydralazine HCl (Apresoline) 25 mg Q6HR ORAL 06/20/16 21:00 07/20/16 20:59 06/26/16 06:01 Lorazepam (Ativan 2mg/ml 1ml) 0.5 mg Q4H PRN IV For Anxiety 06/20/16 17:45 06/27/16 17:44 Lorazepam (Ativan) 0.5 mg Q4H PRN ORAL For Anxiety 06/20/16 17:30 06/27/16 17:29 06/23/16 18:24 Metoprolol Tartrate (Lopressor) 25 mg Q12HR ORAL 06/20/16 21:00 07/20/16 20:59 06/26/16 09:44 Morphine Sulfate (Morphine Sulfate) 1 mg Q4H PRN IVP For Pain 06/20/16 17:45 06/27/16 17:44 06/26/16 05:02 Ondansetron HCl (Zofran) 4 mg Q6H PRN IVP Nausea & Vomiting 06/20/16 17:45 07/20/16 17:44 Polyethylene Glycol (Miralax) 17 gm HSPRN PRN ORAL Constipation 06/20/16 17:45 07/20/16 17:44 Ranitidine HCl 150 mg 150 mg BEDTIME ORAL 06/21/16 21:00 07/21/16 20:59 06/25/16 20:38 Risperidone (RisperDAL) 3 mg BEDTIME ORAL 06/20/16 21:00 07/20/16 20:59 06/25/16 20:39 Rivaroxaban (Xarelto) 15 mg QPM ORAL 06/20/16 21:00 07/20/16 20:59 06/25/16 17:08 Vancomycin HCl (Vanco rx to dose) 1 ea DAILY PRN MISC Per rx protocol 06/20/16 17:45 07/20/16 17:44 Vancomycin HCl/ Dextrose (Vancomycin/D5W) 275 ml @ 183.708 mls/hr Q12H IVPB 06/23/16 10:00 06/28/16 09:59 06/26/16 09:48 Zolpidem Tartrate (Ambien) 5 mg HSPRN PRN ORAL Insomnia 06/20/16 17:45 07/20/16 17:44 06/24/16 20:52 NETO ZEPEDA M.D. Jun 26, 2016 18:18
[2016-06-26] MEDS: Xarelto 15mg tab ORAL SCH (18:23)
[2016-06-26 20:00] VITALS: BP 156/55
--- NOTE | 2016-06-26 22:52 | Pulmonology Progress Note ---
Assessment/Plan Problems: (1) Cellulitis of toe of right foot (2) Thalamic pain syndrome (3) Major depression (4) Atrial flutter with controlled response Assessment/Plan continue antibioitcs all notes reviewed wound care Subjective ROS Limited/Unobtainable: No Interval Events: improving Allergies: Coded Allergies: NO KNOWN DRUG ALLERGIES (Unverified Allergy, Unknown, 07/11/15) Objective Last 24 Hour Vital Signs Date Time Temp Pulse Resp B/P Pulse Ox O2 Delivery O2 Flow Rate FiO2 06/26/16 20:46 62 156/55 06/26/16 20:00 97.9 62 20 156/55 94 Room Air 06/26/16 18:23 151/59 06/26/16 16:00 98.1 61 20 151/59 95 Room Air 06/26/16 12:06 97.4 93 20 124/65 97 Room Air 06/26/16 12:00 119/49 06/26/16 09:44 70 130/53 06/26/16 08:35 97.5 72 20 142/72 95 Room Air 06/26/16 06:01 138/69 06/26/16 05:33 97.2 06/26/16 04:00 97.5 68 18 138/69 95 Room Air 06/26/16 00:00 97.2 62 16 116/56 95 Room Air 06/26/16 00:00 116/56 Intake and Output 06/25/16 06/26/16 19:00 07:00 Intake Total 600 ml 1367.416 ml Balance 600 ml 1367.416 ml Intake Oral 600 ml 1000 ml IV Total 367.416 ml # Voids 3 4 # Bowel Movements 1 General Appearance: WD/WN HEENT: normocephalic, anicteric Respiratory/Chest: chest wall non-tender, lungs clear Breasts: no masses Cardiovascular: normal rate Abdomen: normal bowel sounds, soft, non tender 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 Laboratory Tests 06/26/16 09:30: Vancomycin Level Trough 16.6H Current Medications Medications (Trade) Dose Ordered Sig/Ibrahima Route PRN Reason Start Time Stop Time Status Last Admin Dose Admin Acetaminophen (Tylenol) 650 mg Q4H PRN ORAL fever 06/20/16 21:00 07/20/16 20:59 Al Hydroxide/Mg Hydroxide (Mylanta II) 30 ml Q8H PRN ORAL dyspepsia 06/20/16 17:30 07/20/16 17:29 06/25/16 20:38 Allopurinol (Zyloprim) 100 mg DAILY ORAL 06/21/16 09:00 07/21/16 08:59 06/26/16 09:45 Atorvastatin Calcium (Lipitor) 10 mg BEDTIME ORAL 06/20/16 21:00 07/20/16 20:59 06/26/16 20:45 Bisacodyl (Dulcolax) 10 mg DAILY ORAL 06/21/16 09:00 07/21/16 08:59 06/26/16 09:43 Bupropion HCl (Wellbutrin) 100 mg EVERY 12 HOURS ORAL 06/20/16 21:00 07/20/16 20:59 06/26/16 20:46 Dextrose (Dextrose 50%) STAT PRN IV Hypoglycemia 06/20/16 17:45 07/20/16 17:44 Divalproex Sodium (Depakote) 250 mg EVERY 12 HOURS ORAL 06/20/16 21:00 07/20/16 20:59 06/26/16 20:46 Furosemide (Lasix) 40 mg DAILY ORAL 06/21/16 09:00 07/21/16 08:59 06/26/16 09:44 Hydralazine HCl (Apresoline) 25 mg Q6HR ORAL 06/20/16 21:00 07/20/16 20:59 06/26/16 18:23 Lorazepam (Ativan 2mg/ml 1ml) 0.5 mg Q4H PRN IV For Anxiety 06/20/16 17:45 06/27/16 17:44 Lorazepam (Ativan) 0.5 mg Q4H PRN ORAL For Anxiety 06/20/16 17:30 06/27/16 17:29 06/23/16 18:24 Metoprolol Tartrate (Lopressor) 25 mg Q12HR ORAL 06/20/16 21:00 07/20/16 20:59 06/26/16 20:46 Morphine Sulfate (Morphine Sulfate) 1 mg Q4H PRN IVP For Pain 06/20/16 17:45 06/27/16 17:44 06/26/16 05:02 Ondansetron HCl (Zofran) 4 mg Q6H PRN IVP Nausea & Vomiting 06/20/16 17:45 07/20/16 17:44 Polyethylene Glycol (Miralax) 17 gm HSPRN PRN ORAL Constipation 06/20/16 17:45 07/20/16 17:44 Ranitidine HCl 150 mg 150 mg BEDTIME ORAL 06/21/16 21:00 07/21/16 20:59 06/26/16 20:46 Risperidone (RisperDAL) 3 mg BEDTIME ORAL 06/20/16 21:00 07/20/16 20:59 06/26/16 20:46 Rivaroxaban (Xarelto) 15 mg QPM ORAL 06/20/16 21:00 07/20/16 20:59 06/26/16 18:23 Vancomycin HCl (Vanco rx to dose) 1 ea DAILY PRN MISC Per rx protocol 06/20/16 17:45 07/20/16 17:44 Vancomycin HCl/ Dextrose (Vancomycin/D5W) 275 ml @ 183.708 mls/hr Q12H IVPB 06/23/16 10:00 06/28/16 09:59 06/26/16 09:48 Zolpidem Tartrate (Ambien) 5 mg HSPRN PRN ORAL Insomnia 06/20/16 17:45 07/20/16 17:44 06/24/16 20:52 GAYLE AGGARWAL Jun 26, 2016 22:51
[2016-06-27] VITALS: BP 140/71
[2016-06-27] MEDS: HydrALAZINE 25mg tab ORAL SCH ×3 (00:15→12:41)
[2016-06-27] MEDS: Zolpidem 5mg tab ORAL PRN (01:02)
[2016-06-27 04:00] VITALS: BP 157/91
[2016-06-27 08:35] VITALS: BP 127/61
[2016-06-27] MEDS: Depakote 500mg tab ORAL SCH (10:12)
[2016-06-27] MEDS: Furosemide 40mg tab ORAL SCH (10:13)
[2016-06-27] MEDS: Bisacodyl EC 5mg tab ORAL SCH (10:13)
[2016-06-27] MEDS: Metoprolol 25mg tab ORAL SCH (10:14)
[2016-06-27] MEDS: Allopurinol 100mg Tab ORAL SCH (10:15)
--- NOTE | 2016-06-27 10:16 | Infectious Diseases Prog Note ---
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 Right third toe soft tissue swelling, nonspecific. Associated bone destruction or other acute bony pathology not excludable. - MRI 05/2016: Findings suspicious for osteomyelitis involving the right second middle and distal phalanges - CRP, ESR WNL // Afebrile without leukocytosis // +ve Blood Cx : CoNS 1/2 ( contaminant ) // MRSA Colonizer // Nonambulatory / wheelchair bound // NH resident // h/o MRSA, VRE colonization // NKDA // Full Code PLAN: - DC IV vancomycin,d# 7 and monitor pt off of AB Rx ( 06/24 SP cefepime d# 5 ) - monitor CBC, temperatures - monitor BMP - wound care Subjective Constitutional: Denies: anorexia, chills, drenching sweats, fatigue, fever, no symptoms, other Allergies: Coded Allergies: NO KNOWN DRUG ALLERGIES (Unverified Allergy, Unknown, 07/11/15) Objective Vital Signs Last 24 Hour Vital Signs Date Time Temp Pulse Resp B/P Pulse Ox O2 Delivery O2 Flow Rate FiO2 06/27/16 08:35 97.5 107 20 127/61 95 Room Air 06/27/16 05:45 157/91 06/27/16 04:00 97.7 82 18 157/91 93 Room Air 06/27/16 00:15 140/71 06/27/16 00:00 97.9 67 18 140/71 93 Room Air 06/26/16 20:46 62 156/55 06/26/16 20:00 97.9 62 20 156/55 94 Room Air 06/26/16 18:23 151/59 06/26/16 16:00 98.1 61 20 151/59 95 Room Air 06/26/16 12:06 97.4 93 20 124/65 97 Room Air 06/26/16 12:00 119/49 Height (Feet): 5 Height (Inches): 1.00 Weight (Pounds): 170 HEENT: mucous membranes moist Respiratory/Chest: normal breath sounds Cardiovascular: regularly irregular Abdomen: non distended Skin: no lesions Current Medications Medications (Trade) Dose Ordered Sig/Ibrahima Route PRN Reason Start Time Stop Time Status Last Admin Dose Admin Acetaminophen (Tylenol) 650 mg Q4H PRN ORAL fever 06/20/16 21:00 07/20/16 20:59 Al Hydroxide/Mg Hydroxide (Mylanta II) 30 ml Q8H PRN ORAL dyspepsia 06/20/16 17:30 07/20/16 17:29 06/25/16 20:38 Allopurinol (Zyloprim) 100 mg DAILY ORAL 06/21/16 09:00 07/21/16 08:59 06/26/16 09:45 Atorvastatin Calcium (Lipitor) 10 mg BEDTIME ORAL 06/20/16 21:00 07/20/16 20:59 06/26/16 20:45 Bisacodyl (Dulcolax) 10 mg DAILY ORAL 06/21/16 09:00 07/21/16 08:59 06/26/16 09:43 Bupropion HCl (Wellbutrin) 100 mg EVERY 12 HOURS ORAL 06/20/16 21:00 07/20/16 20:59 06/26/16 20:46 Dextrose (Dextrose 50%) STAT PRN IV Hypoglycemia 06/20/16 17:45 07/20/16 17:44 Divalproex Sodium (Depakote) 250 mg EVERY 12 HOURS ORAL 06/20/16 21:00 07/20/16 20:59 06/26/16 20:46 Furosemide (Lasix) 40 mg DAILY ORAL 06/21/16 09:00 07/21/16 08:59 06/26/16 09:44 Hydralazine HCl (Apresoline) 25 mg Q6HR ORAL 06/20/16 21:00 07/20/16 20:59 06/27/16 05:45 Lorazepam (Ativan 2mg/ml 1ml) 0.5 mg Q4H PRN IV For Anxiety 06/20/16 17:45 06/27/16 17:44 Lorazepam (Ativan) 0.5 mg Q4H PRN ORAL For Anxiety 06/20/16 17:30 06/27/16 17:29 06/23/16 18:24 Metoprolol Tartrate (Lopressor) 25 mg Q12HR ORAL 06/20/16 21:00 07/20/16 20:59 06/26/16 20:46 Morphine Sulfate (Morphine Sulfate) 1 mg Q4H PRN IVP For Pain 06/20/16 17:45 06/27/16 17:44 06/26/16 05:02 Ondansetron HCl (Zofran) 4 mg Q6H PRN IVP Nausea & Vomiting 06/20/16 17:45 07/20/16 17:44 Polyethylene Glycol (Miralax) 17 gm HSPRN PRN ORAL Constipation 06/20/16 17:45 07/20/16 17:44 Ranitidine HCl 150 mg 150 mg BEDTIME ORAL 06/21/16 21:00 07/21/16 20:59 06/26/16 20:46 Risperidone (RisperDAL) 3 mg BEDTIME ORAL 06/20/16 21:00 07/20/16 20:59 06/26/16 20:46 Rivaroxaban (Xarelto) 15 mg QPM ORAL 06/20/16 21:00 07/20/16 20:59 06/26/16 18:23 Vancomycin HCl (Vanco rx to dose) 1 ea DAILY PRN MISC Per rx protocol 06/20/16 17:45 07/20/16 17:44 Vancomycin HCl/ Dextrose (Vancomycin/D5W) 275 ml @ 183.708 mls/hr Q12H IVPB 06/23/16 10:00 06/28/16 09:59 06/26/16 09:48 Zolpidem Tartrate (Ambien) 5 mg HSPRN PRN ORAL Insomnia 06/20/16 17:45 07/20/16 17:44 06/27/16 01:02 NETO ZEPEDA M.D. Jun 27, 2016 10:16
--- NOTE | 2016-06-27 11:00 | Podiatric Progress Note ---
Assessment/Plan Patient Ashlee Rodriguez is a 75 year old female who was admitted on Jun 20, 2016 at 16:23 with right 2nd toe cellulitis Problems: (1) Foot ulcer, right (2) Cellulitis of toe of right foot (3) Gout Assessment/Plan The right 2nd toe wound remains closed. No drainage noted. The erythema and edema has improved. However, it is not resolved completely. Patient has remained afebrile and without leukocytosis throughout admission - Antibiotic recommendations per infectious disease specialist - Continue to monitor toe daily for complete resolution of the cellulitis and to ensure the wound does not reopen Subjective Reason for consult Right 2nd toe cellulitis Allergies: Coded Allergies: NO KNOWN DRUG ALLERGIES (Unverified Allergy, Unknown, 07/11/15) Subjective Patient reports no pain, nausea, vomiting, fevers, or chills. She states she was scheduled to be discharged yesterday but there was an issue regarding transportation that delayed the process. Objective Exam Last 24 Hour Vital Signs Date Time Temp Pulse Resp B/P Pulse Ox O2 Delivery O2 Flow Rate FiO2 06/27/16 10:14 75 133/64 06/27/16 08:35 97.5 107 20 127/61 95 Room Air 06/27/16 05:45 157/91 06/27/16 04:00 97.7 82 18 157/91 93 Room Air 06/27/16 00:15 140/71 06/27/16 00:00 97.9 67 18 140/71 93 Room Air 06/26/16 20:46 62 156/55 06/26/16 20:00 97.9 62 20 156/55 94 Room Air 06/26/16 18:23 151/59 06/26/16 16:00 98.1 61 20 151/59 95 Room Air 06/26/16 12:06 97.4 93 20 124/65 97 Room Air 06/26/16 12:00 119/49 Microbiology Date/Time Source Procedure Growth Status 06/20/16 16:25 Blood Blood Culture - Final NO GROWTH AFTER 5 DAYS Complete 06/21/16 11:30 Foot Right Gram Stain - Final Complete 06/21/16 11:30 Aerobic Culture - Final Staphylococcus Aureus - Mrsa Complete 06/21/16 11:30 Foot Right Anaerobic Culture - Final NO ANAEROBES ISOLATED Complete Exam Narrative Right 2nd toe wound remains closed. Erythema and edema has improved but is not completely resolved. Samuel Queen DPM Jun 27, 2016 11:00
[2016-06-27 12:54] VITALS: BP 139/79
[2016-06-27 16:12] VITALS: BP 155/68
[2016-06-27] MEDS ORDERED: Tubing IV Secondary IV ONE (16:47)
[2016-06-27] MEDS ORDERED: NS 275ml ONE (16:47)
--- NOTE | 2016-06-27 17:19 | Pulmonology Progress Note ---
Assessment/Plan Problems: (1) Cellulitis of toe of right foot (2) Thalamic pain syndrome (3) Major depression (4) Atrial flutter with controlled response Assessment/Plan dc to [facility] for wound care continue antibioitcs all notes reviewed wound care Subjective ROS Limited/Unobtainable: No Interval Events: looking for placement Constitutional: Reports: no symptoms HEENT: Repors: no symptoms Allergies: Coded Allergies: NO KNOWN DRUG ALLERGIES (Unverified Allergy, Unknown, 07/11/15) Objective Last 24 Hour Vital Signs Date Time Temp Pulse Resp B/P Pulse Ox O2 Delivery O2 Flow Rate FiO2 06/27/16 16:12 98.1 62 20 155/68 94 Room Air 06/27/16 12:54 97.9 68 20 139/79 95 Room Air 06/27/16 12:41 143/75 06/27/16 10:14 75 133/64 06/27/16 08:35 97.5 107 20 127/61 95 Room Air 06/27/16 05:45 157/91 06/27/16 04:00 97.7 82 18 157/91 93 Room Air 06/27/16 00:15 140/71 06/27/16 00:00 97.9 67 18 140/71 93 Room Air 06/26/16 20:46 62 156/55 06/26/16 20:00 97.9 62 20 156/55 94 Room Air 06/26/16 18:23 151/59 Intake and Output 06/26/16 06/27/16 19:00 07:00 Intake Total 720 ml 375 ml Balance 720 ml 375 ml Intake Oral 720 ml 375 ml # Voids 3 3 General Appearance: WD/WN HEENT: normocephalic, atraumatic Respiratory/Chest: chest wall non-tender, normal breath sounds Cardiovascular: normal peripheral pulses, normal rate Genitourinary: normal external genitalia 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
--- NOTE | 2016-06-28 11:13 | Discharge Summary ---
Discharge Summary Hospital Course Date of Admission Jun 20, 2016 at 16:23 Date of Discharge Jun 27, 2016 at 16:40 Admitting Diagnosis Rt foot cellulitis MATEUSZ Rodriguez is a 75 year old female who was admitted on Jun 20, 2016 at 16:23 for Right Foot Cellulitis Hospital Course [id number] Discharge Discharge Disposition Patient was discharged to SNF/Subacute Facility(03) Discharge Diagnoses: Delmi Gutierrez NP Jun 28, 2016 11:13
--- NOTE | 2016-06-29 02:08 | Discharge Summary 2 SIG ---
DATE OF ADMISSION: 06/20/2016 DATE OF DISCHARGE: 06/27/2016 CONSULTANTS: 1. Rosales Bloom M.D. 2. Samuel Queen D.P.M. BRIEF HOSPITAL COURSE: The patient is a 75-year-old female, who presented with right foot pain and redness and has been treated for cellulitis of the foot and was recently on antibiotics a week ago. Right foot continued with redness and was advised to come to hospital for IV antibiotics. X-ray showed bone destruction. Clinical exam and abnormal x-ray was consistent with osteomyelitis. The patient was then admitted for further management. Dr. Queen was consulted. The patient was recently in the hospital in May 2016 where an MRI was performed and was given local wound care and six weeks of IV antibiotics. Upon completion of the IV antibiotics, there was noted to have increased redness and swelling of the toe. No purulence or malodor noted. She has gout on bilateral second toes that started ulceration. The patient underwent right second toe incision and drainage by Dr. Queen. She was also given wound care daily. Dr. Moeller was consulted for antibiotic management and was given vancomycin and cefepime. Pathology report was consistent with gouty tophi. Wound culture with MRSA. She was taken off antibiotics. Right second toe wound remained closed with no drainage. The erythema and edema has improved, however, it has not completely resolved. The patient remained afebrile without leukocytosis. The patient was eventually discharged back to senior living to continue with wound care and p.o. antibiotics. FINAL DIAGNOSES: 1. Cellulitis of the right toe. 2. Status post incision and drainage. 3. Gouty tophi. 4. Major depression. 5. Atrial flutter. 6. Chronic nonhealing right second toe ulcer present on admission. 7. Positive blood culture with coagulase-negative Staph, possibly contaminant. 8. Methicillin-resistant Staphylococcus aureus colonization. 9. Gout. 10. Chronic obstructive pulmonary disease. 11. Chronic diastolic congestive heart failure. 12. Hypertension. 13. Diabetes mellitus. 14. History of bipolar disorder. 15. History of ETOH abuse. Mirali Zarrabi, M.D. I have been assigned to dictate discharge summary on this account and I was not involved in the patient's management. Delmi Gutierrez N.P. DR: ORI JOB#: [id number] CC:
== END 2016-06-27 16:40 | DRG 580 ==
LOC: EMR 15:32 → 4W 16:23 → EDBEDREQ 18:22
PROC: 0J9Q0ZZ Drainage of Right Foot Subcutaneous Tissue and Fascia, Open Approach (ICD-10-PCS; principal; 2016-06-21)
DX: L03.031 Cellulitis of right toe (principal); I50.32 Chronic diastolic (congestive) heart failure; E11.621 Type 2 diabetes mellitus with foot ulcer; E11.69 Type 2 diabetes mellitus with other specified complication; I11.0 Hypertensive heart disease with heart failure; F03.90 Unspecified dementia, unspecified severity, without behavioral disturbance, psychotic disturbance, mood disturbance, and anxiety; I48.92 Unspecified atrial flutter; M86.671 Other chronic osteomyelitis, right ankle and foot; F31.9 Bipolar disorder, unspecified; L97.519 Non-pressure chronic ulcer of other part of right foot with unspecified severity; M1A.9XX1 Chronic gout, unspecified, with tophus (tophi); M19.90 Unspecified osteoarthritis, unspecified site; Z16.21 Resistance to vancomycin; Z99.3 Dependence on wheelchair; Z86.14 Personal history of Methicillin resistant Staphylococcus aureus infection
CPT/HCPCS: 36415; 71010; 80048; 80053; 80061; 80202; 82550; 83036; 83605; 83880; 84443; 84484; 84550; 85025; 85610; 85651; 85730; 86850; 86900; 86901; 87040; 87070; 87075; 87181; 87205; 93005; 93925; 93970; J2405

== ENCOUNTER 2016-09-04 16:22 | Inpatient (IN) | payer MEDICARE, OTHER ==
[~2016-09-04] VITALS: Ht 154.9 cm; Wt 79.4 kg
--- NOTE | 2016-09-04 16:27 | Emergency Room Report ---
History of Present Illness General Chief Complaint: To Be Triaged Present Illness HPI [id number] BIBEMS with 1 week of weakness, generalized, "I cant keep my eyes open." Denies chest pain, SOB, abd pain, headache, fever/chills. Patient went to PMD' s office, Dr Sierra's PA sent in for admission for weakness, requesting CBC, CMP, TSH level. Patient well known to this ED and [facility] for multiple ED visits and admissions. Known gouty tophi of right foot, depression, Atrial Flutter, foot ulcers, MRSA collinization, COPD, CHF, HTN, bipolar. Allergies: Coded Allergies: NO KNOWN DRUG ALLERGIES (Unverified Allergy, Unknown, 07/11/15) Patient History Past Medical History: see triage record, old chart reviewed, other - See HPI Past Surgical History: other - see HPI Pertinent Family History: none Social History: Reports: alcohol use Now: No Immunizations: UTD Reviewed Nursing Documentation: PMH: Agreed, PSxH: Agreed Nursing Documentation-PMH Hx Hypertension: Yes Hx Pacemaker: No - stent Hx Asthma: No Hx COPD: Yes Hx Diabetes: No Hx Cancer: No Hx Gastrointestinal Problems: Yes - ETOH abuse Hx Dialysis: No Hx Neurological Problems: Yes - bilat hip replacement, non-ambulatory Hx Cerebrovascular Accident: Yes Hx Dementia: Yes Hx Seizures: No Hx Tremors: Yes Hx Vertigo: Yes Hx Dizziness: Yes Hx Syncope: Yes Hx Headaches: Yes - occasional Hx Weakness: Yes - BLE Hx Fatigue: Yes Review of Systems All Other Systems: negative except mentioned in HPI Physical Exam Sp02 EP Interpretation: reviewed, normal General Appearance: normal inspection, well appearing, no apparent distress, alert, GCS 15, non-toxic, obese Head: normocephalic, atraumatic Eyes: bilateral eye EOMI, bilateral eye PERRL ENT: normal ENT inspection, hearing grossly normal, normal voice Neck: normal inspection, full range of motion, supple, no bony tend Respiratory: normal inspection, lungs clear, normal breath sounds, no respiratory distress, no retraction, no wheezing Cardiovascular #1: regular rate, rhythm, no edema Gastrointestinal: normal inspection, normal bowel sounds, non tender, soft, no guarding, no hernia Genitourinary: no CVA tenderness Musculoskeletal: normal inspection, back normal, normal range of motion, Artis' s Sign negative Neurologic: normal inspection, alert, oriented x3, responsive, 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 I attest that this information is true, accurate and complete to the best of my knowledge. I understand that any falsification, omission, or concealment of material fact may subject me to administrative, civil, or criminal liability. This patient warrants hospital admission for extreme of age and has a condition that cannot be treated as outpatient. Diagnostic Impression: Primary Impression: Generalized weakness Additional Impression: Prolonged Q-T interval on ECG ER Course labs: No leuks. H&H stable. TSH normal. Mild SHAWNA CXR: No PNA, pulm congestion. Weaknesss - possibly d/t dehydration - Prolonged QRS - Gentle hydration given - AVOID QRS prolonging medication Endorsed to Dr Sierra for med/surg admission at 554pm EKG Diagnostic Results Rate: normal Rhythm: NSR ST Segments: other - prolonged QRS ASA given to the pt in ED: No Rhythm Strip Diag. Results EP Interpretation: yes Rate: 60 Rhythm: NSR, no PVC's, no ectopy Chest X-Ray Diagnostic Results EP Interpretation: Yes Findings: no consolidation, no effusion, no pneumothorax, no acute cardiopulmonary disease Number of Views: 1 Status: improved Disposition: ADMITTED INPATIENT Condition: Serious JERMAIN ZELAYA M.D. Sep 04, 2016 16:27
[2016-09-04 16:56] VITALS: BP 125/95
[2016-09-04 17:11] LABS: BASOPHILS % (AUTO) 1.9 % (0.0-2.0); LYMPHOCYTES % (AUTO) 24.5 % (20.0-45.0); MEAN CORPUSCULAR HEMOGLOBIN 28.6 PG (27.0-31.0); MEAN CORPUSCULAR HGB CONC 32.4 G/DL (32.0-36.0); MEAN CORPUSCULAR VOLUME 88 FL (80-99); MEAN PLATELET VOLUME 7.3 FL (6.5-10.1); MONOCYTES % (AUTO) 5.7 % (1.0-10.0); PLATELET COUNT 201 K/UL (150-450); RED BLOOD COUNT 4.04 M/UL (4.20-5.40); RED CELL DISTRIBUTION WIDTH 15.9 % (11.6-14.8)
[2016-09-04 17:22] LABS: ALANINE AMINOTRANSFERASE 9 U/L (3-33); ALBUMIN/GLOBULIN RATIO 1.6 (1.0-2.7); ANION GAP 17 (5-15); ASPARTATE AMINO TRANSFERASE 15 U/L (5-40); CARBON DIOXIDE 28 mEQ/L (20-30); CHLORIDE 93 mEQ/L (98-107); CREATININE 1.1 mg/dL (0.5-0.9); HEMOLYSIS 10; POTASSIUM 3.9 mEQ/L (3.4-4.9); SODIUM 138 mEQ/L (135-145); TOTAL PROTEIN 6.6 g/dL (6.6-8.7)
[2016-09-04 17:23] LABS: TROPONIN I < 0.30 ng/mL (<=0.30)
[2016-09-04] MEDS ORDERED: IBUPROFEN600 MG ORAL (17:26)
[2016-09-04 17:33] LABS: CKMB < 1.5 ng/mL (< 3.8)
[2016-09-04] MEDS ORDERED: LR 1000ml 1,000 ML IV SCH (18:30)
[2016-09-04] MEDS ORDERED: LOMOTIL TABLET1 EACH ORAL (18:38)
[2016-09-04] MEDS ORDERED: TRAZODONE HCL50 MG ORAL (18:39)
[2016-09-04 18:58] VITALS: BP 113/61
[2016-09-04] MEDS ORDERED: oxyCODONE 15mg IR tab ORAL PRN (19:00)
[2016-09-04] MEDS ORDERED: Norco 5mg/325mg tab ORAL PRN (19:00)
[2016-09-04] MEDS ORDERED: Zolpidem 5mg tab ORAL PRN ×2 (19:00→21:00)
[2016-09-04] MEDS ORDERED: Mylanta II UD 30ml ORAL PRN (19:00)
[2016-09-04] MEDS ORDERED: Miralax 17gm pkt ORAL PRN ×2 (19:00)
[2016-09-04 19:30] VITALS: BP 144/55
[2016-09-04] MEDS: Morphine Sulfate 2mg/ml Inj IVP PRN (20:40)
[2016-09-04] MEDS: RisperiDONE 0.25mg tab ORAL SCH (21:07)
[2016-09-04] MEDS: Metoprolol 25mg tab ORAL SCH (21:08)
[2016-09-04] MEDS: TraZODone HCl 25 mg tablet ORAL SCH (21:53)
[2016-09-04] MEDS: LORazepam Inj 2mg/ml 1ml IV PRN (22:17)
[2016-09-05] MEDS ORDERED: Lomotil 2.5mg tab ORAL PRN
[2016-09-05] MEDS: HydrALAZINE 25mg tab ORAL SCH ×4 (00:02→17:48)
[2016-09-05 00:55] VITALS: BP 143/70
[2016-09-05] MEDS: Morphine Sulfate 2mg/ml Inj IVP PRN ×3 (05:34→20:45)
[2016-09-05] MEDS: Mylanta II UD 30ml ORAL SCH ×3 (06:00→17:47)
[2016-09-05 06:49] LABS: ALANINE AMINOTRANSFERASE 7 U/L (3-33); ALBUMIN/GLOBULIN RATIO 1.4 (1.0-2.7); ANION GAP 15 (5-15); ASPARTATE AMINO TRANSFERASE 13 U/L (5-40); CALCIUM 8.6 mg/dL (8.6-10.2); CARBON DIOXIDE 26 mEQ/L (20-30); CHLORIDE 95 mEQ/L (98-107); CHOLESTEROL 153 mg/dL (< 200); CHOLESTEROL/HDL RATIO 5.1 (3.3-4.4); CREATININE 0.9 mg/dL (0.5-0.9); HEMOLYSIS 9; LDL CHOLESTEROL (CALC.) 90 mg/dL (60-99); POTASSIUM 3.7 mEQ/L (3.4-4.9); SODIUM 136 mEQ/L (135-145); TOTAL PROTEIN 5.9 g/dL (6.6-8.7)
[2016-09-05 06:56] LABS: BASOPHILS % (AUTO) 1.4 % (0.0-2.0); EOSINOPHILS % (AUTO) 4.4 % (0.0-3.0); LYMPHOCYTES % (AUTO) 25.8 % (20.0-45.0); MEAN CORPUSCULAR HEMOGLOBIN 28.7 PG (27.0-31.0); MEAN CORPUSCULAR HGB CONC 32.1 G/DL (32.0-36.0); MEAN CORPUSCULAR VOLUME 89 FL (80-99); MEAN PLATELET VOLUME 7.3 FL (6.5-10.1); MONOCYTES % (AUTO) 6.6 % (1.0-10.0); NEUTROPHILS % (AUTO) 61.7 % (45.0-75.0); PLATELET COUNT 188 K/UL (150-450); RED BLOOD COUNT 3.79 M/UL (4.20-5.40); RED CELL DISTRIBUTION WIDTH 16.4 % (11.6-14.8)
[2016-09-05 08:16] VITALS: BP 148/60
[2016-09-05] MEDS: Lisinopril 2.5mg tab ORAL SCH (09:41)
[2016-09-05] MEDS: RisperiDONE 0.25mg tab ORAL SCH ×2 (09:42→17:48)
[2016-09-05] MEDS: Bisacodyl EC 5mg tab ORAL SCH (09:42)
[2016-09-05] MEDS: Metoprolol 25mg tab ORAL SCH ×2 (09:42→20:46)
[2016-09-05] MEDS: Solifenacin 10mg tab ORAL SCH (09:42)
[2016-09-05] MEDS: Allopurinol 100mg Tab ORAL SCH (09:42)
[2016-09-05] MEDS: Heparin 5000 units/ml inj SUBQ SCH ×2 (09:43→20:46)
[2016-09-05 11:53] VITALS: BP 102/58
--- NOTE | 2016-09-05 14:49 | Diagnostic Imaging Report ---
Indication: PAIN Technique: One view of the chest Comparison: 06/20/2016 Findings: What is presumably and electronic monitoring device again projects over the left chest, better appreciated on the current exam. The heart remains enlarged. Lungs and pleural spaces are clear. There are mitral annular calcifications. There are degenerative changes of both shoulders Impression: Findings as noted. No acute process Cardiomegaly
[2016-09-05 16:00] VITALS: BP 125/69
--- NOTE | 2016-09-05 16:09 | Consultation ---
History of Present Illness General Chief Complaint: Generalized Weakness Present Illness Allergies: Coded Allergies: NO KNOWN DRUG ALLERGIES (Unverified Allergy, Unknown, 07/11/15) Medication History Scheduled Al Hydroxide/mg Hydroxide (Mag-Al Plus Suspension), 30 ML PO prn Q6hr, (Reported ) Allopurinol* (Allopurinol*), 100 MG ORAL DAILY Atorvastatin Calcium* (Lipitor*), 10 MG ORAL BEDTIME Bisacodyl* (Dulcolax*), 10 MG ORAL PRN daily, (Reported) Bupropion HCl (Wellbutrin), 100 MG ORAL EVERY 12 HOURS, (Reported) Bupropion Hcl* (Bupropion Hcl Sr*), 200 MG ORAL DAILY, (Reported) Ceftriaxone Sodium (Ceftriaxone), 1 GM IVPB DAILY, (Reported) Diphenoxylate Hcl/Atropine (Lomotil Tablet), 2.5 MG ORAL EVERY 6 HOURS, ( Reported) Divalproex Sodium (Depakote), 250 MG ORAL EVERY 12 HOURS, (Reported) Docusate Sodium* (Docusate Sodium*), 250 MG ORAL DAILY, (Reported) Furosemide* (Lasix*), 40 MG ORAL DAILY, (Reported) Hydralazine HCl (Hydralazine HCl), 25 MG PO Q6HR, (Reported) Lisinopril (Lisinopril*), 5 MG ORAL DAILY Lorazepam (Lorazepam), 2 MG IV Q4H, (Reported) Metoprolol Tartrate (Metoprolol Tartrate), 25 MG ORAL Q12HR Mirtazapine* (Mirtazapine*), 15 MG ORAL BEDTIME, (Reported) Nitroglycerin (Nitroglycerin Patch), 1 EACH TD Q6HR, (Reported) [place]-3 Fatty Acids/Fish Oil (Fish Oil 1,000 Mg Capsule), 1,000 MG ORAL DAILY, ( Reported) Pseudoephedrine Hcl (Sudogest), 30 MG PO BID, (Reported) Pseudoephedrine Hcl (Sudogest), 30 MG PO bid prn, (Reported) Ranitidine Hcl (Ranitidine Hcl), 150 MG ORAL BEDTIME, (Reported) Risperidone* (Risperdal*), 3 MG ORAL BEDTIME Risperidone* (Risperdal*), 0.25 MG ORAL BID, (Reported) Rivaroxaban (Xarelto*), 20 MG ORAL DAILY, (Reported) Solifenacin Succinate (Vesicare*), 10 MG ORAL DAILY, (Reported) Sulfamethoxazole/Trimethoprim Ds Tablet* (Sulfamethoxazole-Tmp Ds Tablet*), 1 TAB ORAL TWICE A DAY, (Reported) Trazodone Hcl* (Desyrel*), 25 MG ORAL BEDTIME, (Reported) Vancomycin Hcl (Vancomycin), 1 GM IV Q12HR, (Reported) Scheduled PRN Acetaminophen (Acetaminophen), 650 MG ORAL Q4HR PRN for Mild Pain/Temp > 100.5, (Reported) Bisacodyl* (Dulcolax*), 10 MG RECTAL ONCE PRN for Constipation, (Reported) Hydrocodone Bit/Acetaminophen 5-325* ([place] 5-325 Tablet*), 1 TAB ORAL Q6HR PRN for For Pain, (Reported) Ibuprofen* (Motrin*), 600 MG ORAL Q6H PRN for For Pain, (Reported) Lorazepam* (Lorazepam*), 0.5 MG IV PRN Q 4 hours PRN for For Anxiety, (Reported) Ondansetron* (Zofran*), 4 MG IV Q6H PRN for Nausea & Vomiting, (Reported) Oxycodone Hcl* (Oxycodone Hcl*), 30 MG ORAL Q8H PRN for For Pain, (Reported) Polyethylene Glycol 3350* (Miralax*), 17 GM ORAL PRN at bedtime PRN for Constipation, (Reported) Promethazine/Phenyleph/Codeine (Promethazine Vc-Codeine Syrup), 10 ML ORAL Q4H PRN for For Cough, (Reported) Tramadol Hcl* (Ultram*), 50 MG ORAL Q12HR PRN for For Pain, (Reported) Zolpidem Tartrate* (Ambien*), 5 MG ORAL BEDTIME PRN for Insomnia, (Reported) Miscellaneous Medications Lorazepam (Lorazepam), 4 MG IV, (Reported) Patient History Healthcare decision maker Resuscitation status Advanced Directive on File Physical Exam Last 24 Hour Vital Signs Date Time Temp Pulse Resp B/P Pulse Ox O2 Delivery O2 Flow Rate FiO2 09/05/16 12:00 102/58 09/05/16 11:53 98.6 61 20 102/58 95 Room Air 09/05/16 09:42 60 148/60 09/05/16 09:41 148/60 09/05/16 08:16 98.9 60 20 148/60 95 Room Air 09/05/16 06:00 142/67 09/05/16 00:55 98.2 60 18 143/70 94 Room Air 09/05/16 00:02 143/70 09/04/16 21:10 99.0 09/04/16 21:08 66 144/55 09/04/16 19:30 99.0 66 18 144/55 95 Room Air 09/04/16 19:10 99.1 60 15 113/61 100 Room Air 09/04/16 18:58 99.1 60 15 113/61 100 Room Air 09/04/16 16:56 99.3 86 15 125/95 98 Room Air 09/04/16 16:30 99.3 60 14 149/117 98 Room Air Intake and Output 09/04/16 09/05/16 19:00 07:00 Intake Total 0 ml 500 ml Balance 0 ml 500 ml Intake Oral 0 ml 500 ml # Voids 4 Laboratory Tests Test 09/04/16 16:46 09/05/16 05:25 White Blood Count 8.0 K/UL (4.8-10.8) 8.0 K/UL (4.8-10.8) Red Blood Count 4.04 M/UL (4.20-5.40) L 3.79 M/UL (4.20-5.40) L Hemoglobin 11.6 G/DL (12.0-16.0) L 10.9 G/DL (12.0-16.0) L Hematocrit 35.7 % (37.0-47.0) L 33.9 % (37.0-47.0) L Mean Corpuscular Volume 88 FL (80-99) 89 FL (80-99) Mean Corpuscular Hemoglobin 28.6 PG (27.0-31.0) 28.7 PG (27.0-31.0) Mean Corpuscular Hemoglobin Concent 32.4 G/DL (32.0-36.0) 32.1 G/DL (32.0-36.0) Red Cell Distribution Width 15.9 % (11.6-14.8) H 16.4 % (11.6-14.8) H Platelet Count 201 K/UL (150-450) 188 K/UL (150-450) Mean Platelet Volume 7.3 FL (6.5-10.1) 7.3 FL (6.5-10.1) Neutrophils (%) (Auto) 64.0 % (45.0-75.0) 61.7 % (45.0-75.0) Lymphocytes (%) (Auto) 24.5 % (20.0-45.0) 25.8 % (20.0-45.0) Monocytes (%) (Auto) 5.7 % (1.0-10.0) 6.6 % (1.0-10.0) Eosinophils (%) (Auto) 4.0 % (0.0-3.0) H 4.4 % (0.0-3.0) H Basophils (%) (Auto) 1.9 % (0.0-2.0) 1.4 % (0.0-2.0) Sodium Level 138 mEQ/L (135-145) 136 mEQ/L (135-145) Potassium Level 3.9 mEQ/L (3.4-4.9) 3.7 mEQ/L (3.4-4.9) Chloride Level 93 mEQ/L (98-107) L 95 mEQ/L (98-107) L Carbon Dioxide Level 28 mEQ/L (20-30) 26 mEQ/L (20-30) Anion Gap 17 (5-15) H 15 (5-15) Blood Urea Nitrogen 12 mg/dL (7-23) 15 mg/dL (7-23) Creatinine 1.1 mg/dL (0.5-0.9) H 0.9 mg/dL (0.5-0.9) Estimat Glomerular Filtration Rate mL/min (>60) mL/min (>60) Glucose Level 79 mg/dL (74-106) 73 mg/dL (74-106) L Calcium Level 9.0 mg/dL (8.6-10.2) 8.6 mg/dL (8.6-10.2) Total Bilirubin 0.4 mg/dL (0.0-1.2) 0.4 mg/dL (0.0-1.2) Aspartate Amino Transf (AST/SGOT) 15 U/L (5-40) 13 U/L (5-40) Alanine Aminotransferase (ALT/SGPT) 9 U/L (3-33) 7 U/L (3-33) Alkaline Phosphatase 56 U/L (35-104) 51 U/L (35-104) Total Creatine Kinase 17 U/L (26-140) L Creatine Kinase MB < 1.5 ng/mL (< 3.8) Creatine Kinase MB Relative Index Troponin I < 0.30 ng/mL (<=0.30) Total Protein 6.6 g/dL (6.6-8.7) 5.9 g/dL (6.6-8.7) L Albumin 4.1 g/dL (3.5-5.2) 3.5 g/dL (3.5-5.2) Globulin 2.5 g/dL 2.4 g/dL Albumin/Globulin Ratio 1.6 (1.0-2.7) 1.4 (1.0-2.7) Thyroid Stimulating Hormone (TSH) 2.470 uIU/mL (0.300-4.500) Triglycerides Level 164 mg/dL (< 150) H Cholesterol Level 153 mg/dL (< 200) LDL Cholesterol 90 mg/dL (60-99) HDL Cholesterol 30 mg/dL (> 60) Cholesterol/HDL Ratio 5.1 (3.3-4.4) H Height (Feet): 5 Height (Inches): 1.00 Weight (Pounds): 175 Medications Current Medications Medications (Trade) Dose Ordered Sig/Ibrahima Route PRN Reason Start Time Stop Time Status Last Admin Dose Admin Acetaminophen (Tylenol) 650 mg Q4H PRN ORAL fever 09/04/16 19:00 10/04/16 18:59 Acetaminophen/ Hydrocodone Bitart ([place] 5/325) 1 tab Q6H PRN ORAL MODERATE PAIN 09/04/16 19:00 09/11/16 18:59 Al Hydroxide/Mg Hydroxide (Mylanta II) 30 ml BEFORE MEALS ORAL 09/05/16 06:30 10/05/16 06:29 09/05/16 12:30 Allopurinol (Zyloprim) 100 mg DAILY ORAL 09/05/16 09:00 10/05/16 08:59 09/05/16 09:42 Atorvastatin Calcium (Lipitor) 10 mg BEDTIME ORAL 09/04/16 21:00 10/04/16 20:59 09/04/16 21:08 Bisacodyl (Dulcolax) 10 mg DAILY ORAL 09/05/16 09:00 10/05/16 08:59 09/05/16 09:42 Bupropion HCl (Wellbutrin) 100 mg EVERY 12 HOURS ORAL 09/04/16 22:00 10/04/16 21:59 09/05/16 09:42 Dextrose (Dextrose 50%) STAT PRN IV Hypoglycemia 09/04/16 19:00 10/04/16 18:59 Diphenoxylate HCl/ Atropine (Lomotil) 2.5 mg EVERY 6 HOURS PRN ORAL diarrhea 09/05/16 00:00 10/05/16 00:00 Divalproex Sodium (Depakote) 250 mg EVERY 12 HOURS ORAL 09/04/16 21:00 10/04/16 20:59 09/05/16 09:42 Heparin Sodium (Porcine) (Heparin 5000 units/ml) 5,000 units BID@0900,2100 SUBQ 09/05/16 09:00 10/05/16 08:59 09/05/16 09:43 Hydralazine HCl (Apresoline) 25 mg Q6HR ORAL 09/05/16 00:00 10/05/16 00:00 09/05/16 06:00 Lisinopril (Zestril) 5 mg DAILY ORAL 09/05/16 09:00 10/05/16 08:59 09/05/16 09:41 Lorazepam (Ativan 2mg/ml 1ml) 0.5 mg Q4H PRN IV For Anxiety 09/04/16 19:00 09/11/16 18:59 09/04/16 22:17 Metoprolol Tartrate (Lopressor) 25 mg Q12HR ORAL 09/04/16 21:00 10/04/16 20:59 09/05/16 09:42 Mirtazapine (Remeron) 15 mg BEDTIME ORAL 09/04/16 21:00 10/04/16 20:59 09/04/16 21:08 Morphine Sulfate (Morphine Sulfate) 1 mg Q4H PRN IVP For Severe Pain 09/04/16 19:00 09/11/16 18:59 09/05/16 10:46 Ondansetron HCl (Zofran) 4 mg Q6H PRN IVP Nausea & Vomiting 09/04/16 19:00 10/04/16 18:59 Polyethylene Glycol (Miralax) 17 gm DAILY PRN ORAL Constipation 09/04/16 19:00 10/04/16 18:59 Risperidone (RisperDAL) 0.25 mg BID ORAL 09/04/16 21:00 10/04/16 20:59 09/05/16 09:42 Solifenacin (Vesicare) 10 mg DAILY ORAL 09/05/16 09:00 10/05/16 08:59 09/05/16 09:42 Trazodone HCl (Desyrel) 25 mg QHS ORAL 09/04/16 21:00 10/04/16 20:59 09/04/16 21:53 Zolpidem Tartrate (Ambien) 5 mg BEDTIME PRN ORAL Insomnia 09/04/16 21:00 10/04/16 20:59 GAYLE AGGARWAL Sep 05, 2016 16:09
[2016-09-05 17:50] LABS: BASOPHILS % (MANUAL) 1 % (0-2); EOSINOPHILS % (MANUAL) 3 % (0-3); LYMPHOCYTES % (MANUAL) 26 % (20-45); NEUTROPHILS % (MANUAL) 66 % (45-75); TOTAL CELLS COUNTED 100
[2016-09-05 17:51] LABS: ANISOCYTOSIS 1+; BAND NEUTROPHILS % (MANUAL) 0 % (0-8); HYPOCHROMASIA 1+; PLATELET ESTIMATE ADEQUATE; PLATELET MORPHOLOGY NORMAL
[2016-09-05 17:52] LABS: PATH BLOOD SMEAR/OMC SENT TO PATHOLOGIST
[2016-09-05 17:56] LABS: INR 1.1 (0.9-1.1); PROTHROMBIN TIME 11.2 SEC (9.30-11.50)
[2016-09-05 18:22] LABS: RETICULOCYTE COUNT 2.1 % (0.0-2.0)
[2016-09-05 19:00] VITALS: BP 122/71
[2016-09-05] MEDS: TraZODone HCl 25 mg tablet ORAL SCH (20:46)
[2016-09-06] VITALS: BP 159/72
[2016-09-06] MEDS: HydrALAZINE 25mg tab ORAL SCH ×4 (00:11→17:18)
--- NOTE | 2016-09-06 02:28 | Consultation ---
DATE OF CONSULTATION: 09/05/2016 HISTORY OF PRESENT ILLNESS: This is a 75-year-old female, who is well known to this physician. The patient has a history of bipolar disorder as well as alcohol dependence and multiple medical problems including atrial fibrillation, hypertension, chronic obstructive pulmonary disease, and recurrent urinary tract infection, and admitted to the hospital for medical stabilization. The patient complained of general weakness and during the evaluation, the patient is presenting with irritable mood, anxiety, complained of fatigue and weakness. She stated that she has not been drinking alcohol. She has been compliant with her medication. PAST PSYCHIATRIC HISTORY: Diagnosed with bipolar disorder, several psychiatric hospitalizations, treated with antidepressants as well as on antipsychotics with includes Depakote, Wellbutrin, and Ativan, as well as mirtazapine. PAST MEDICAL HISTORY: Significant for hypertension, shortness of breath, chest pain, and atrial fibrillation. SUBSTANCE ABUSE HISTORY: Significant for alcohol dependence. No illicit drug use. MENTAL STATUS EXAMINATION: The patient is alert and oriented x3. Mood is depressed. Affect is constricted. Congruent with mood. Thought process is concrete. Thought content, no suicidal or homicidal ideation. ASSESSMENT: AXIS I: Bipolar disorder, alcohol dependence. AXIS II: Deferred. AXIS III: As above. AXIS IV: Moderate. AXIS V: Global assessment of functioning is 20. PLAN: 1. The patient will be continued on Depakote. 2. We will continue to follow and readjust the medications. Luiz Morrison M.D. DR: KRISHAN JOB#: [id number] CC:
[2016-09-06 04:00] VITALS: BP 161/69
[2016-09-06] MEDS: Mylanta II UD 30ml ORAL SCH ×3 (05:52→17:18)
[2016-09-06 06:14] LABS: BASOPHILS % (AUTO) 1.4 % (0.0-2.0); EOSINOPHILS % (AUTO) 4.2 % (0.0-3.0); LYMPHOCYTES % (AUTO) 25.7 % (20.0-45.0); MEAN CORPUSCULAR HEMOGLOBIN 28.8 PG (27.0-31.0); MEAN CORPUSCULAR HGB CONC 32.3 G/DL (32.0-36.0); MEAN CORPUSCULAR VOLUME 89 FL (80-99); MEAN PLATELET VOLUME 7.3 FL (6.5-10.1); MONOCYTES % (AUTO) 8.7 % (1.0-10.0); PLATELET COUNT 161 K/UL (150-450); RED BLOOD COUNT 3.71 M/UL (4.20-5.40); RED CELL DISTRIBUTION WIDTH 16.6 % (11.6-14.8); WHITE BLOOD COUNT 6.8 K/UL (4.8-10.8)
[2016-09-06 08:15] VITALS: BP 150/80
[2016-09-06] MEDS: Metoprolol 25mg tab ORAL SCH ×2 (08:33→20:33)
[2016-09-06] MEDS: Bisacodyl EC 5mg tab ORAL SCH (08:33)
[2016-09-06] MEDS: Solifenacin 10mg tab ORAL SCH (08:33)
[2016-09-06] MEDS: Allopurinol 100mg Tab ORAL SCH (08:33)
[2016-09-06] MEDS: Lisinopril 2.5mg tab ORAL SCH (08:33)
[2016-09-06] MEDS: RisperiDONE 0.25mg tab ORAL SCH ×2 (08:33→17:18)
[2016-09-06] MEDS: Heparin 5000 units/ml inj SUBQ SCH ×2 (08:34→20:31)
[2016-09-06 11:59] VITALS: BP 143/60
[2016-09-06 16:00] VITALS: BP 123/59
[2016-09-06] MEDS: Morphine Sulfate 2mg/ml Inj IVP PRN (16:15)
[2016-09-06 20:00] VITALS: BP 114/57
[2016-09-06] MEDS: TraZODone HCl 25 mg tablet ORAL SCH (20:29)
--- NOTE | 2016-09-06 20:38 | Pulmonology Progress Note ---
Subjective Allergies: Coded Allergies: NO KNOWN DRUG ALLERGIES (Unverified Allergy, Unknown, 07/11/15) Objective Last 24 Hour Vital Signs Date Time Temp Pulse Resp B/P Pulse Ox O2 Delivery O2 Flow Rate FiO2 09/06/16 20:33 61 115/58 09/06/16 17:18 123/59 09/06/16 16:45 98.1 09/06/16 16:00 96.4 61 20 123/59 98 Room Air 09/06/16 12:53 143/60 09/06/16 11:59 98.1 60 21 143/60 94 Room Air 09/06/16 08:33 61 150/80 09/06/16 08:33 150/80 09/06/16 08:15 97.9 61 22 150/80 96 Room Air 09/06/16 05:52 161/69 09/06/16 04:00 97.7 61 20 161/69 96 Room Air 09/06/16 00:11 159/72 09/06/16 00:00 96.6 64 20 159/72 93 Room Air 09/05/16 20:46 63 122/71 Intake and Output 09/05/16 09/06/16 19:00 07:00 Intake Total 520 ml 360 ml Balance 520 ml 360 ml Intake Oral 520 ml 360 ml # Voids 2 5 # Bowel Movements 1 Microbiology Date/Time Source Procedure Growth Status 09/04/16 16:46 Nasal Nares MRSA Culture - Final NO METHICILLIN RESISTANT STAPH AUREUS... Complete 09/04/16 16:46 Rectum VRE Culture - Final Enterococcus Faecalis - Vre Enterococcus Faecium - Vre Complete Laboratory Tests 09/05/16 21:05: Stool Occult Blood Negative 09/06/16 04:00: White Blood Count 6.8, Red Blood Count 3.71L, Hemoglobin 10.7L, Hematocrit 33.1L , Mean Corpuscular Volume 89, Mean Corpuscular Hemoglobin 28.8, Mean Corpuscular Hemoglobin Concent 32.3, Red Cell Distribution Width 16.6H, Platelet Count 161, Mean Platelet Volume 7.3, Neutrophils (%) (Auto) 60.0, Lymphocytes (%) (Auto) 25.7, Monocytes (%) (Auto) 8.7, Eosinophils (%) (Auto) 4.2H, Basophils (%) (Auto) 1.4 Current Medications Medications (Trade) Dose Ordered Sig/Ibrahima Route PRN Reason Start Time Stop Time Status Last Admin Dose Admin Acetaminophen (Tylenol) 650 mg Q4H PRN ORAL fever 09/04/16 19:00 10/04/16 18:59 Acetaminophen/ Hydrocodone Bitart ([place] 5/325) 1 tab Q6H PRN ORAL MODERATE PAIN 09/04/16 19:00 09/11/16 18:59 Al Hydroxide/Mg Hydroxide (Mylanta II) 30 ml BEFORE MEALS ORAL 09/05/16 06:30 10/05/16 06:29 09/06/16 17:18 Allopurinol (Zyloprim) 100 mg DAILY ORAL 09/05/16 09:00 10/05/16 08:59 09/06/16 08:33 Atorvastatin Calcium (Lipitor) 10 mg BEDTIME ORAL 09/04/16 21:00 10/04/16 20:59 09/06/16 20:32 Bisacodyl (Dulcolax) 10 mg DAILY ORAL 09/05/16 09:00 10/05/16 08:59 09/06/16 08:33 Bupropion HCl (Wellbutrin) 100 mg EVERY 12 HOURS ORAL 09/04/16 22:00 10/04/16 21:59 09/06/16 20:30 Dextrose (Dextrose 50%) STAT PRN IV Hypoglycemia 09/04/16 19:00 10/04/16 18:59 Diphenoxylate HCl/ Atropine (Lomotil) 2.5 mg EVERY 6 HOURS PRN ORAL diarrhea 09/05/16 00:00 10/05/16 00:00 Divalproex Sodium (Depakote) 250 mg EVERY 12 HOURS ORAL 09/04/16 21:00 10/04/16 20:59 09/06/16 20:30 Heparin Sodium (Porcine) (Heparin 5000 units/ml) 5,000 units BID@0900,2100 SUBQ 09/05/16 09:00 10/05/16 08:59 09/06/16 20:31 Hydralazine HCl (Apresoline) 25 mg Q6HR ORAL 09/05/16 00:00 10/05/16 00:00 09/06/16 17:18 Lisinopril (Zestril) 5 mg DAILY ORAL 09/05/16 09:00 10/05/16 08:59 09/06/16 08:33 Lorazepam (Ativan 2mg/ml 1ml) 0.5 mg Q4H PRN IV For Anxiety 09/04/16 19:00 09/11/16 18:59 09/04/16 22:17 Metoprolol Tartrate (Lopressor) 25 mg Q12HR ORAL 09/04/16 21:00 10/04/16 20:59 09/06/16 08:33 Mirtazapine (Remeron) 15 mg BEDTIME ORAL 09/04/16 21:00 10/04/16 20:59 09/06/16 20:30 Morphine Sulfate (Morphine Sulfate) 1 mg Q4H PRN IVP For Severe Pain 09/04/16 19:00 09/11/16 18:59 09/06/16 16:15 Ondansetron HCl (Zofran) 4 mg Q6H PRN IVP Nausea & Vomiting 09/04/16 19:00 10/04/16 18:59 Polyethylene Glycol (Miralax) 17 gm DAILY PRN ORAL Constipation 09/04/16 19:00 10/04/16 18:59 Risperidone (RisperDAL) 0.25 mg BID ORAL 09/04/16 21:00 10/04/16 20:59 09/06/16 17:18 Solifenacin (Vesicare) 10 mg DAILY ORAL 09/05/16 09:00 10/05/16 08:59 09/06/16 08:33 Trazodone HCl (Desyrel) 25 mg QHS ORAL 09/04/16 21:00 10/04/16 20:59 09/06/16 20:29 Zolpidem Tartrate (Ambien) 5 mg BEDTIME PRN ORAL Insomnia 09/04/16 21:00 10/04/16 20:59 GAYLE AGGARWAL Sep 06, 2016 20:38
[2016-09-06] MEDS: LORazepam Inj 2mg/ml 1ml IV PRN (22:31)
[2016-09-07] VITALS: BP 153/79
[2016-09-07 04:00] VITALS: BP 154/78
[2016-09-07] MEDS: HydrALAZINE 25mg tab ORAL SCH ×3 (05:47→12:40)
[2016-09-07] MEDS: Mylanta II UD 30ml ORAL SCH ×2 (06:30→11:30)
[2016-09-07 08:02] VITALS: BP 142/62
[2016-09-07] MEDS: Morphine Sulfate 2mg/ml Inj IVP PRN ×2 (08:06→12:53)
[2016-09-07] MEDS: Solifenacin 10mg tab ORAL SCH (09:07)
[2016-09-07] MEDS: Bisacodyl EC 5mg tab ORAL SCH (09:07)
[2016-09-07] MEDS: Allopurinol 100mg Tab ORAL SCH (09:07)
[2016-09-07] MEDS: RisperiDONE 0.25mg tab ORAL SCH (09:08)
[2016-09-07] MEDS: Lisinopril 2.5mg tab ORAL SCH (09:08)
[2016-09-07] MEDS: Metoprolol 25mg tab ORAL SCH (09:08)
[2016-09-07] MEDS: Heparin 5000 units/ml inj SUBQ SCH (09:10)
[2016-09-07 11:07] VITALS: BP 129/54
[2016-09-07 12:40] VITALS: BP 129/54
[2016-09-07] MEDS ORDERED: Tubing IV Secondary IV ONE (15:45)
--- NOTE | 2016-09-07 23:33 | Pulmonology Progress Note ---
Subjective Allergies: Coded Allergies: NO KNOWN DRUG ALLERGIES (Unverified Allergy, Unknown, 07/11/15) Objective Last 24 Hour Vital Signs Date Time Temp Pulse Resp B/P Pulse Ox O2 Delivery O2 Flow Rate FiO2 09/07/16 13:20 98.6 09/07/16 12:40 129/54 09/07/16 12:00 96 Room Air 09/07/16 11:07 98.6 60 15 129/54 10 Room Air 09/07/16 09:08 67 142/62 09/07/16 09:08 142/62 09/07/16 08:02 98.6 67 14 142/62 96 Room Air 09/07/16 05:47 154/78 09/07/16 04:00 96.8 70 20 154/78 95 Room Air 09/07/16 00:00 97.7 68 20 153/79 94 Room Air 09/07/16 00:00 153/79 Intake and Output 09/06/16 09/07/16 19:00 07:00 Intake Total 720 ml 480 ml Balance 720 ml 480 ml Intake Oral 720 ml 480 ml # Voids 2 4 GAYLE AGGARWAL Sep 07, 2016 23:33
--- NOTE | 2016-09-09 14:18 | Discharge Summary ---
Discharge Summary Hospital Course Date of Admission Sep 04, 2016 at 16:51 Date of Discharge Sep 07, 2016 at 15:46 Admitting Diagnosis WEAKNESS MATEUSZ Rodriguez is a 75 year old female who was admitted on Sep 04, 2016 at 16:51 for Weakness, generalized, "I cant keep my eyes open." Denies chest pain, SOB, abdominal pain, headache, fever/chills. Patient went to PMD's office, Dr Sierra's PA sent in for admission for weakness, requesting CBC, CMP, TSH level. Patient well known to this ED and [place] for multiple ED visits and admissions. Known gouty tophi of right foot, depression, Atrial Flutter, foot ulcers, MRSA colonization, COPD, CHF, HTN, bipolar. Hx Hypertension: Yes Hx Pacemaker: No - stent Hx Asthma: No Hx COPD: Yes Hx Diabetes: No Hx Cancer: No Hx Gastrointestinal Problems: Yes - ETOH abuse Hx Dialysis: No Hx Neurological Problems: Yes - bilat hip replacement, non-ambulatory Hx Cerebrovascular Accident: Yes Hx Dementia: Yes Hx Seizures: No Hx Tremors: Yes Hx Vertigo: Yes Hx Dizziness: Yes Hx Syncope: Yes Hx Headaches: Yes - occasional Hx Weakness: Yes - BLE Hx Fatigue: Yes Consultations Psychiatric Procedures EKG Diagnostic Results Rate: normal Rhythm: NSR ST Segments: other - prolonged QRS ASA given to the pt in ED: No Rhythm Strip Diag. Results EP Interpretation: yes Rate: 60 Rhythm: NSR, no PVC's, no ectopy Chest X-Ray Diagnostic Results EP Interpretation: Yes Findings: no consolidation, no effusion, no pneumothorax, no acute cardiopulmonary disease Number of Views: 1 CULTURE VRE SCREEN Organism 1 - ENTEROCOCCUS FAECALIS - VRE, GROWTH: 2+ Organism 2 ENTEROCOCCUS FAECALIS - VRE, GROWTH: 2+ Hospital Course Diagnostic Impression: Primary Impression: Generalized weakness Additional Impression: Prolonged Q-T interval on ECG ER Course labs: No leuks. H&H stable. TSH normal. Mild SHAWNA CXR: No PNA, pulm congestion. Weaknesss - possibly d/t dehydration - Prolonged QRS - Gentle hydration given - AVOID QRS prolonging medication Initial Hospital Course IV hydration HTN mgmt bowel regime pain mgmt electrolyte replacement obtain Psychiatry consult Troponin negative OB stool negative ST INITIAL IMPRESSION >>CONTINUE SOFT, EASY CHEW DIET WITH THIN LIQUIDS PT IMPRESSION >> PATIENT WILL BENEFIT FROM SKILLED PT DURING STAY. RECOMMEND SNF AT NE. PATIENT WC LEVEL. MOTORIZED WC IN ROOM. Psychiatric Consultation MENTAL STATUS EXAMINATION: The patient is alert and oriented x3. Mood is depressed. Affect is constricted. Congruent with mood. Thought process is concrete. Thought content, no suicidal or homicidal ideation. ASSESSMENT: AXIS I: Bipolar disorder, alcohol dependence. AXIS II: Deferred. AXIS III: As above. AXIS IV: Moderate. AXIS V: Global assessment of functioning is 20. PLAN: 1. The patient will be continued on Depakote. 2. We will continue to follow and readjust the medications. Final Hospital course Patient stable for discharge. PT and ST evaluations reviewed. Discharge Medications Continued Medications: Acetaminophen (Acetaminophen) 650 Mg/20.3 Ml Solution 650 MG ORAL Q4HR PRN for Mild Pain/Temp > 100.5, ML 0 Refills Al Hydroxide/mg Hydroxide (Mag-Al Plus Suspension) 30 Ml Oral.susp 30 ML PO prn Q6hr for dyspepsia, ML Allopurinol* (Allopurinol*) 100 Mg Tablet 100 MG ORAL DAILY for 30 Days, TAB Atorvastatin Calcium* (Lipitor*) 10 Mg Tablet 10 MG ORAL BEDTIME, #30 TAB Bisacodyl* (Dulcolax*) 5 Mg Tablet.dr 10 MG RECTAL ONCE PRN for Constipation, #4 TAB 0 Refills Bisacodyl* (Dulcolax*) 5 Mg Tablet.dr 10 MG ORAL PRN daily for Constipation, #10 TAB 0 Refills Bupropion HCl (Wellbutrin) 100 Mg Tab 100 MG ORAL EVERY 12 HOURS, TAB Diphenoxylate Hcl/Atropine (Lomotil Tablet) 1 Each Tablet 2.5 MG ORAL EVERY 6 HOURS, #30 TAB 0 Refills Divalproex Sodium (Depakote) 500 Mg Tabec 250 MG ORAL EVERY 12 HOURS, TAB Furosemide* (Lasix*) 40 Mg Tablet 40 MG ORAL DAILY, TAB Take 1 tablet by mouth every day. Hydralazine HCl (Hydralazine HCl) 25 Mg Tablet 25 MG PO Q6HR, TAB Hydrocodone Bit/Acetaminophen 5-325* ([place] 5-325 Tablet*) 1 Each Tablet 1 TAB ORAL Q6HR PRN for For Pain, TAB Lisinopril (Lisinopril*) 5 Mg Tablet 5 MG ORAL DAILY, #30 TAB Metoprolol Tartrate (Metoprolol Tartrate) 25 Mg Tab 25 MG ORAL Q12HR, #60 TAB Mirtazapine* (Mirtazapine*) 15 Mg Tablet 15 MG ORAL BEDTIME, TAB [place]-3 Fatty Acids/Fish Oil (Fish Oil 1,000 Mg Capsule) 1 Each Capsule 1000 MG ORAL DAILY, #30 CAP 0 Refills Promethazine/Phenyleph/Codeine (Promethazine Vc-Codeine Syrup) 118 Ml Syrup 10 ML ORAL Q4H PRN for For Cough, ML 0 Refills Ranitidine Hcl (Ranitidine Hcl) 150 Mg Capsule 150 MG ORAL BEDTIME, CAP Risperidone* (Risperdal*) 1 Mg Tablet 3 MG ORAL BEDTIME, #30 TAB Risperidone* (Risperdal*) 0.25 Mg Tablet 0.25 MG ORAL BID, #30 TAB 0 Refills Rivaroxaban (Xarelto*) 10 Mg Tablet 20 MG ORAL DAILY, #30 TAB 0 Refills Solifenacin Succinate (Vesicare*) 10 Mg Tablet 10 MG ORAL DAILY, TAB Sulfamethoxazole/Trimethoprim Ds Tablet* (Sulfamethoxazole-Tmp Ds Tablet*) 1 Each Tablet 1 TAB ORAL TWICE A DAY, TAB Tramadol Hcl* (Ultram*) 50 Mg Tablet 50 MG ORAL Q12HR PRN for For Pain, #30 TAB 0 Refills Trazodone Hcl* (Desyrel*) 50 Mg Tablet 25 MG ORAL BEDTIME, TAB Zolpidem Tartrate* (Ambien*) 5 Mg Tablet 5 MG ORAL BEDTIME PRN for Insomnia, TAB Discharge Condition Upon Discharge: stable Discharge Disposition Patient was discharged to SNF/Subacute Facility(03) Discharge Diagnoses: (1) Dehydration (2) Iron deficiency (3) Anemia, chronic disease (4) Diarrhea (5) Insomnia (6) Wheelchair bound (7) Bipolar depression (8) Gout (9) Generalized weakness (10) Hypertension (11) Elevated cholesterol with high triglycerides Discharge Instructions Discharge Instructions Special Instructions Report given to tank driver. all belongings with patient. Rosa Almanza RN I have been assigned to the discharge summary of this patient and did not provide any care for the patient. Amisha Aguilera NP N.PJulieta Sep 09, 2016 14:18
== END 2016-09-07 15:46 | DRG 641 ==
LOC: EDBEDREQ 16:33 → EMR 16:50 → 4E 16:51 → EDBEDREQ 17:12 → 4E 19:15
DX: E86.0 Dehydration (principal); I48.92 Unspecified atrial flutter; F03.90 Unspecified dementia, unspecified severity, without behavioral disturbance, psychotic disturbance, mood disturbance, and anxiety; E61.1 Iron deficiency; D63.8 Anemia in other chronic diseases classified elsewhere; F31.9 Bipolar disorder, unspecified; R53.1 Weakness; F10.20 Alcohol dependence, uncomplicated; R19.7 Diarrhea, unspecified; G47.00 Insomnia, unspecified; Z99.3 Dependence on wheelchair; I10 Essential (primary) hypertension; E78.2 Mixed hyperlipidemia; M1A.9XX1 Chronic gout, unspecified, with tophus (tophi); I50.9 Heart failure, unspecified; J44.9 Chronic obstructive pulmonary disease, unspecified; Z96.643 Presence of artificial hip joint, bilateral
CPT/HCPCS: 36415; 71010; 80053; 80061; 82270; 82378; 82550; 82553; 82607; 82746; 82962; 83540; 83550; 83615; 84443; 84484; 85007; 85025; 85044; 85060; 85610; 85651; 85730; 87081; 93005

== ENCOUNTER 2016-12-31 11:00 | Emergency (ER) | payer MEDICARE, OTHER ==
[~2016-12-31] VITALS: Ht 170.2 cm; Wt 74.8 kg
[~2016-12-31 11:00] MED LIST changes: +LOMOTIL TABLET1 EACH ORAL; +TRAZODONE HCL50 MG ORAL
[2016-12-31 11:22] VITALS: BP 109/65
--- NOTE | 2016-12-31 12:47 | Emergency Room Report ---
History of Present Illness General Chief Complaint: Multiple Trauma/Fall Source: Medical Record Present Illness Allergies: Coded Allergies: NO KNOWN DRUG ALLERGIES (Unverified Allergy, Unknown, 07/11/15) Patient History Past Medical History: see triage record, CAD, CHF, COPD, seizures, psych hx - Bipolar, other - Hx of ETOH abuse Past Surgical History: other - Bilateral hip replacement Social History: Denies: alcohol use, drug use, smoking Now: No Reviewed Nursing Documentation: PMH: Agreed, PSxH: Agreed Nursing Documentation-PMH Hx Cardiac Problems: Yes - Long QT syndrome; HF; Hx Hypertension: Yes Hx Pacemaker: No - stent Hx Asthma: No Hx COPD: Yes Hx Diabetes: No Hx Cancer: No Hx Gastrointestinal Problems: Yes - ETOH abuse Hx Dialysis: No History Of Psychiatric Problem: Yes - ETOH Abuse; Bipolar; Major Depressive D/O Hx Neurological Problems: Yes - bilat hip replacement, non-ambulatory Hx Cerebrovascular Accident: Yes Hx Dementia: Yes Hx Seizures: No Hx Tremors: Yes Hx Vertigo: Yes Hx Dizziness: Yes Hx Syncope: Yes Hx Headaches: Yes - occasional Hx Weakness: Yes - BLE Hx Fatigue: Yes Review of Systems All Other Systems: negative except mentioned in HPI Physical Exam Vital Signs Date Time Temp Pulse Resp B/P Pulse Ox O2 Delivery O2 Flow Rate FiO2 12/31/16 11:02 Room Air 12/31/16 11:22 97.8 84 19 109/65 97 Sp02 EP Interpretation: reviewed, normal General Appearance: no apparent distress, alert, GCS 15, non-toxic Head: normocephalic, atraumatic Eyes: bilateral eye PERRL, bilateral eye normal inspection ENT: hearing grossly normal, normal pharynx, no angioedema, normal voice Neck: full range of motion, supple/symm/no masses Respiratory: chest non-tender, lungs clear, normal breath sounds, speaking full sentences Cardiovascular #1: regular rate, rhythm, no edema Gastrointestinal: normal bowel sounds, non tender, soft, non-distended, no guarding, no rebound Rectal: deferred Musculoskeletal: normal inspection, back normal, normal range of motion, non- tender Neurologic: alert, oriented x3, responsive, motor strength/tone normal, sensory intact, speech normal Psychiatric: judgement/insight normal, memory normal, mood/affect normal, no suicidal/homicidal ideation Skin: warm/dry, well hydrated, other - R. herrera with abrasion/skin avulsion 2cm irregular Medical Decision Making Diagnostic Impression: Primary Impression: Fall Additional Impressions: Multiple contusions UTI (lower urinary tract infection) ER Course This patient presents from a intermediate for a fall off her bed. She states that she normally has to have assistance to use a wheelchair and she rolled out of bed. Denies that she felt weak, therefore did not pursue further workup. The patient underwent x-rays of her left hip and knee. These are unremarkable for acute findings. She states that she has had a urinary tract infection and has been treated with oral antibiotics for this. A repeat urinalysis was done which showed . . Labs Test 12/31/16 14:02 Urine Color Pale yellow Urine Appearance Cloudy Urine pH 7 (4.5-8.0) Urine Specific [place] 1.015 (1.005-1.035) Urine Protein Negative (NEGATIVE) Urine Glucose (UA) Negative (NEGATIVE) Urine Ketones Negative (NEGATIVE) Urine Occult Blood 1+ (NEGATIVE) Urine Nitrite Negative (NEGATIVE) Urine Bilirubin Negative (NEGATIVE) Urine Urobilinogen Normal MG/DL (0.0-1.0) Urine Leukocyte Esterase 3+ (NEGATIVE) Urine RBC 2-4 /HPF (0 - 2) Urine WBC 60-80 /HPF (0 - 2) Urine Squamous Epithelial Cells Occasional /LPF Urine Bacteria Moderate /HPF (NONE) Last Vital Signs Date Time Temp Pulse Resp B/P Pulse Ox O2 Delivery O2 Flow Rate FiO2 12/31/16 11:22 97.8 84 19 109/65 97 Room Air Disposition: HOME, SELF-CARE Condition: Improved Scripts Nitrofurantoin Monohyd/M-Cryst* (MACROBID 100 MG*) 100 Mg Capsule 100 MG ORAL EVERY 12 HOURS for 10 Days, #20 CAP Prov: MARY ELLEN BALLESTEROS D.O. 12/31/16 Referrals: NON PHYSICIAN (PCP) MARY ELLEN BALLESTEROS D.O. Dec 31, 2016 12:47
--- NOTE | 2016-12-31 13:42 | Diagnostic Imaging Report ---
Indications: Pelvic and left hip pain Technique: AP pelvis, 2 views left hip. Findings: Comparison: 09/02/2012 No fracture, dislocation, joint space widening or lytic destruction, periosteal reaction , surrounding soft tissue swelling/foreign body/gas, or other acute changes are identified. Bilateral hip prostheses remain intact. No abnormal surrounding lucency. Diffuse bony demineralization again noted. Chronic appearing contour deformity of the left superior and inferior ischiopubic rami compatible with old, healed fractures again noted. Degenerative changes again noted lower lumbar spine. Bone cement again noted within the L2 vertebral body. L5 vertebral body height loss again noted. Increased feces in rectum. IMPRESSION: No evidence of acute abnormality Stable chronic changes as described.
--- NOTE | 2016-12-31 13:43 | Diagnostic Imaging Report ---
Indications: Left knee pain Technique: 4 views of the left knee Findings: Comparison: None No fracture, dislocation, lytic destruction, periosteal reaction, joint space widening or effusion, surrounding soft tissue abnormality, or other acute changes demonstrated. Bones diffusely demineralized. Patellofemoral and knee joint space is narrowed with marginal osteophyte formation. Prominent arterial mural calcifications. No additional deformity, alignment abnormality, or other chronic changes demonstrated. IMPRESSION: No evidence of acute abnormality of the left knee Osteopenia Osteoarthritis Arteriosclerosis
[2016-12-31 14:19] LABS: APPEARANCE,URINE CLOUDY; KETONES,URINE NEGATIVE (NEGATIVE); LEUKOCYTE ESTERASE ,URINE 3+ (NEGATIVE); NITRITE,URINE NEGATIVE (NEGATIVE); PH,URINE 7 (4.5-8.0); PROTEIN,URINE NEGATIVE (NEGATIVE); UROBILINOGEN,URINE NORMAL MG/DL (0.0-1.0)
[2016-12-31 14:51] LABS: BACTERIA,URINE MODERATE /HPF; SQUAMOUS EPITHELIAL CELL,UR OCCASIONAL /LPF (NONE/OCC); WBC,URINE 60-80 /HPF (0 - 2)
[2016-12-31] MEDS ORDERED: NITROFURANTOIN100 M2 ORAL (15:12)
[2016-12-31 16:14] VITALS: BP 93/53
[2016-12-31 16:49] VITALS: BP 93/53
== END 2016-12-31 16:59 | disposition home or self-care (01) ==
LOC: EDBD 11:00 → EMR 11:55
DX: S80.811A Abrasion, right lower leg, initial encounter (principal); W06.XXXA Fall from bed, initial encounter; Y92.019 Unspecified place in single-family (private) house as the place of occurrence of the external cause; N39.0 Urinary tract infection, site not specified; I10 Essential (primary) hypertension; J44.9 Chronic obstructive pulmonary disease, unspecified; F03.90 Unspecified dementia, unspecified severity, without behavioral disturbance, psychotic disturbance, mood disturbance, and anxiety; Z86.73 Personal history of transient ischemic attack (TIA), and cerebral infarction without residual deficits; Z96.643 Presence of artificial hip joint, bilateral; M17.11 Unilateral primary osteoarthritis, right knee; M85.80 Other specified disorders of bone density and structure, unspecified site; I70.90 Unspecified atherosclerosis
CPT/HCPCS: 72170; 73502; 81003; 87086; 87181; 99283

== ENCOUNTER 2017-05-12 22:28 | Emergency (ER) | payer MEDICARE, OTHER ==
[~2017-05-12] VITALS: Ht 154.9 cm; Wt 81.6 kg
[~2017-05-12 22:28] MED LIST changes: +NITROFURANTOIN100 M2 ORAL
[2017-05-12 22:39] VITALS: BP 118/63
--- NOTE | 2017-05-12 22:53 | Emergency Room Report ---
History of Present Illness General Chief Complaint: Multiple Trauma/Fall Source: Patient, Medical Record Present Illness HPI Patient reports that she was transferring from her wheelchair to a chair to have lunch approximately 12:30 in the afternoon She had a fall onto her buttock area Patient is on xarelto And was sent in for further eval Denies any chest pain or shortness of breath denies any back or flank pain Patient is bedbound and wheelchair-bound Denies any head injury or headache Allergies: Coded Allergies: NO KNOWN DRUG ALLERGIES (Unverified Allergy, Unknown, 07/11/15) Patient History Past Medical History: see triage record Pertinent Family History: none Last Menstrual Period: n/a Reviewed Nursing Documentation: PMH: Agreed, PSxH: Agreed Nursing Documentation-PMH Hx Cardiac Problems: Yes - Long QT syndrome; HF; atrial flutter Hx Hypertension: Yes Hx Pacemaker: No - stent Hx Asthma: No Hx COPD: Yes Hx Diabetes: No Hx Cancer: No Hx Gastrointestinal Problems: Yes - ETOH abuse Hx Dialysis: No Hx Neurological Problems: Yes - bilat hip replacement, non-ambulatory Hx Cerebrovascular Accident: Yes Hx Dementia: Yes Hx Seizures: Yes - epilepsy Hx Tremors: Yes Hx Vertigo: Yes Hx Dizziness: Yes Hx Syncope: Yes Hx Headaches: Yes - occasional Hx Weakness: Yes - BLE Hx Fatigue: Yes Review of Systems All Other Systems: negative except mentioned in HPI Physical Exam Vital Signs Date Time Temp Pulse Resp B/P (MAP) Pulse Ox O2 Delivery O2 Flow Rate FiO2 05/12/17 22:31 98.1 63 16 118/63 96 05/12/17 22:39 Room Air Sp02 EP Interpretation: reviewed, normal General Appearance: well appearing, no apparent distress Head: normocephalic, atraumatic Eyes: bilateral eye PERRL, bilateral eye EOMI ENT: normal pharynx, no angioedema Neck: supple Respiratory: lungs clear, normal breath sounds Cardiovascular #1: regular rate, rhythm Gastrointestinal: non tender, soft Genitourinary: no CVA tenderness Musculoskeletal: other - Patient has severe arthritic changes to her upper extremity, Neurologic: alert, oriented x3, responsive Skin: normal color, no rash Lymphatic: no adenopathy Medical Decision Making Diagnostic Impression: Primary Impression: Fall Additional Impressions: Contusion Arthritis ER Course Given the shearing effect and jarring effect of the fall And the patient being on significant blood thinning medication CT imaging was obtained which was negative Patient also requesting hand x-ray which was performed showing severe arthritis but no other fracture At this time stable for transfer back to nursing facility Other X-Ray Diagnostic Results Other X-Ray Diagnostic Results : X-Ray ordered: left hand # of Views/Limited Vs Complete: 3 View Indication: Pain EP Interpretation: Yes Interpretation: no dislocation, no soft tissue swelling, no fractures, other - severe arthritis Impression: No acute disease Electronically Signed by: Arabella Alcantar, DO CT/MRI/US Diagnostic Results CT/MRI/US Diagnostic Results : Impression CT head no acute disease Last Vital Signs Date Time Temp Pulse Resp B/P (MAP) Pulse Ox O2 Delivery O2 Flow Rate FiO2 05/12/17 22:39 98.1 60 16 118/63 96 Room Air Status: improved Disposition: XFER SNF Condition: Improved Additional Instructions: Patient is provided with the discharge instructions notified to follow up with primary doctor in the next 2-3 days otherwise return to the er with any worsening symptoms. Please note that this report is being documented using [employer] technology. This can lead to erroneous entry secondary to incorrect interpretation by the dictating instrument. ARABELLA ALCANTAR D.O. May 12, 2017 22:53
[2017-05-13 00:39] VITALS: BP 135/76
[2017-05-13 01:17] VITALS: BP 135/76
--- NOTE | 2017-05-15 11:01 | Diagnostic Imaging Report ---
Indication: TRAUMA, pain Technique: spiral acquisitions obtained through the brain. Angled axial and coronal 5 x 5 mm slices were reconstructed. No IV contrast utilized. Radiation dose was minimized using automated exposure control Total dose length product 1372 mGycm. CTDIvol(s) 70 mGy Comparison: 08/22/2015 FINDINGS: No acute hemorrhage or edema. No mass effect or midline shift. There is age-related enlargement of the ventricles and extra axial CSF spaces. There is periventricular deep white matter ischemic change. Normal keys-white differentiation. Visualized orbits are unremarkable. There is left maxillary, ethmoid, and sphenoid sinus disease. The calvarium is intact. Intact calvarium. No significant interval change IMPRESSION: Chronic and age-related changes. Negative for acute intracranial bleed or mass effect This agrees with the preliminary interpretation provided overnight by [facility]. The CT scanner at [facility] is accredited by the [employer] and the scans are performed using protocols designed to limit radiation exposure to as low as reasonably achievable to attain images of sufficient resolution adequate for diagnostic evaluation
--- NOTE | 2017-05-15 11:02 | Diagnostic Imaging Report ---
Indication: Left hand pain Technique: 3 views left hand Comparison: none Findings: There is anterior dislocation of the fifth metacarpophalangeal joint by one bone width. No associated acute fracture is demonstrated. There is suggestion of a slight fracture deformity of the fifth metacarpal that appears chronic but was not definitely evident on the prior study. Again demonstrated is degenerative change of the second through fifth distal interphalangeal joints, third through fifth proximal interphalangeal joints, mostly with osseous erosions. There is also some narrowing of the third through fifth metacarpophalangeal joints. Some proliferative changes are seen about the first interphalangeal joint, but no significant joint space narrowing. There is mild joint space narrowing of the first metacarpophalangeal joint. There is minimal degenerative narrowing of the first carpometacarpal joint. There is deformity of the second third and fourth proximal interphalangeal joints. Bones are osteoporotic Impression: Positive for anterior dislocation of the fifth metacarpophalangeal joint.. Review of electronic medical record indicates this finding was not recognized by the emergency Department physician. Findings were discussed by phone with Dr. Victoria in the emergency room at the time of interpretation. Other chronic findings, as described
== END 2017-05-13 01:17 ==
LOC: EDUNIT# 22:28 → EDBD 22:28 → EMR 22:44
DX: S30.0XXA Contusion of lower back and pelvis, initial encounter (principal); W05.0XXA Fall from non-moving wheelchair, initial encounter; Y92.129 Unspecified place in nursing home as the place of occurrence of the external cause; M19.90 Unspecified osteoarthritis, unspecified site; I10 Essential (primary) hypertension; J44.9 Chronic obstructive pulmonary disease, unspecified; F03.90 Unspecified dementia, unspecified severity, without behavioral disturbance, psychotic disturbance, mood disturbance, and anxiety; Z96.643 Presence of artificial hip joint, bilateral; Z86.73 Personal history of transient ischemic attack (TIA), and cerebral infarction without residual deficits
CPT/HCPCS: 70450; 99284

== ENCOUNTER 2017-08-11 02:19 | Inpatient (IN) | payer MEDICARE, OTHER ==
[~2017-08-11] VITALS: Ht 152.4 cm; Wt 81.2 kg
--- NOTE | 2017-08-11 02:37 | Emergency Room Report ---
History of Present Illness General Chief Complaint: Fever Source: Patient, Medical Record, EMS Present Illness HPI This is a 76-year-old female coming from a group home. She has a history of high blood pressure, COPD and other medical problems. She presents with chief complaint of cough and fever. Onset today. Also productive of sputum. Also complaining of sore throat and some wheezing. Denies any chest pain. Nothing made it better. Nothing made it worse. Allergies: Coded Allergies: NO KNOWN DRUG ALLERGIES (Unverified Allergy, Unknown, 07/11/15) Patient History Past Medical History: see triage record, old chart reviewed, HTN, COPD Pertinent Family History: none Social History: Denies: smoking Now: No Immunizations: other Reviewed Nursing Documentation: PMH: Agreed, PSxH: Agreed Nursing Documentation-PMH Hx Cardiac Problems: Yes - Long QT syndrome; HF; atrial flutter Hx Hypertension: Yes Hx Pacemaker: No - stent Hx Asthma: No Hx COPD: Yes Hx Diabetes: No Hx Cancer: No Hx Gastrointestinal Problems: Yes - ETOH abuse Hx Dialysis: No Hx Neurological Problems: Yes - bilat hip replacement, non-ambulatory Hx Cerebrovascular Accident: Yes Hx Dementia: Yes Hx Seizures: Yes - epilepsy Hx Tremors: Yes Hx Vertigo: Yes Hx Dizziness: Yes Hx Syncope: Yes Hx Headaches: Yes - occasional Hx Weakness: Yes - BLE Hx Fatigue: Yes Review of Systems Constitutional: Reports: fever Eye: Denies: eye pain, blurred vision ENT: Denies: ear pain, nose congestion, throat swelling Respiratory: Reports: cough, shortness of breath, sputum Cardiovascular: Denies: chest pain, palpitations Gastrointestinal: Denies: abdominal pain, diarrhea, nausea, vomiting Musculoskeletal: Denies: back pain, joint pain Skin: Denies: rash Neurological: Denies: headache, numbness Endocrine: Denies: increased thirst, increased urine Hematologic/Lymphatic: Denies: easy bruising All Other Systems: negative except mentioned in HPI Physical Exam Vital Signs Date Time Temp Pulse Resp B/P (MAP) Pulse Ox O2 Delivery O2 Flow Rate FiO2 08/11/17 02:12 98.5 72 24 121/65 99 Nasal Cannula 2.0 98.4 vitals unremarkable Sp02 EP Interpretation: reviewed, normal General Appearance: well appearing, no apparent distress, alert Head: normocephalic, atraumatic Eyes: bilateral eye PERRL, bilateral eye EOMI ENT: hearing grossly normal, normal pharynx Neck: full range of motion, supple, no meningismus Respiratory: chest non-tender, decreased breath sounds, accessory muscle use, rhonchi, wheezing Cardiovascular #1: regular rate, rhythm, no murmur Gastrointestinal: normal bowel sounds, non tender, no mass, no organomegaly, no bruit, non-distended Musculoskeletal: back normal, normal range of motion Neurologic: alert, oriented x3, grossly normal Psychiatric: mood/affect normal Skin: warm/dry Medical Decision Making Diagnostic Impression: Primary Impression: Hospital-acquired pneumonia Additional Impressions: UTI (urinary tract infection) Qualified Codes: N30.00 - Acute cystitis without hematuria COPD with exacerbation ER Course Patient with hospital-acquired pneumonia. Most likely viral in nature. We'll put on antibiotics. No evidence of sepsis, dissection, ACS name a few. Patient felt better after breathing treatment and IV fluid. We'll admit. I discussed the case with Dr. Sierra. Laboratory Tests Test 08/11/17 02:40 08/11/17 03:30 08/11/17 04:00 White Blood Count 8.8 K/UL (4.8-10.8) Red Blood Count 4.32 M/UL (4.20-5.40) Hemoglobin 13.9 G/DL (12.0-16.0) Hematocrit 39.7 % (37.0-47.0) Mean Corpuscular Volume 92 FL (80-99) Mean Corpuscular Hemoglobin 32.3 PG (27.0-31.0) H Mean Corpuscular Hemoglobin Concent 35.1 G/DL (32.0-36.0) Red Cell Distribution Width 12.9 % (11.6-14.8) Platelet Count 145 K/UL (150-450) L Mean Platelet Volume 7.2 FL (6.5-10.1) Neutrophils (%) (Auto) 63.1 % (45.0-75.0) Lymphocytes (%) (Auto) 23.7 % (20.0-45.0) Monocytes (%) (Auto) 8.5 % (1.0-10.0) Eosinophils (%) (Auto) 3.8 % (0.0-3.0) H Basophils (%) (Auto) 1.0 % (0.0-2.0) Sodium Level 126 MMOL/L (136-145) L Potassium Level 4.5 MMOL/L (3.5-5.1) Chloride Level 89 MMOL/L (98-107) L Carbon Dioxide Level 37 MMOL/L (21-32) H Anion Gap 1 mmol/L (5-15) L Blood Urea Nitrogen 6 mg/dL (7-18) L Creatinine 0.6 MG/DL (0.55-1.30) Estimat Glomerular Filtration Rate mL/min (>60) Glucose Level 80 MG/DL (74-106) Lactic Acid Level 0.80 mmol/L (0.66-2.22) Calcium Level 8.6 MG/DL (8.5-10.1) Total Bilirubin 0.5 MG/DL (0.2-1.0) Aspartate Amino Transf (AST/SGOT) 29 U/L (15-37) Alanine Aminotransferase (ALT/SGPT) 16 U/L (12-78) Alkaline Phosphatase 58 U/L (46-116) Total Creatine Kinase 64 U/L (26-308) Creatine Kinase MB 0.5 NG/ML (0.0-3.6) Creatine Kinase MB Relative Index 0.7 Troponin I 0.006 ng/mL (0.000-0.056) Total Protein 6.6 G/DL (6.4-8.2) Albumin 2.8 G/DL (3.4-5.0) L Globulin 3.8 g/dL Albumin/Globulin Ratio 0.7 (1.0-2.7) L Prothrombin Time 11.7 SEC (9.30-11.50) H Prothromb Time International Ratio 1.2 (0.9-1.1) H Activated Partial Thromboplast Time 32 SEC (23-33) Urine Color Yellow Urine Appearance Cloudy Urine pH 6 (4.5-8.0) Urine Specific [place] 1.015 (1.005-1.035) Urine Protein Negative (NEGATIVE) Urine Glucose (UA) Negative (NEGATIVE) Urine Ketones Negative (NEGATIVE) Urine Occult Blood 1+ (NEGATIVE) H Urine Nitrite Positive (NEGATIVE) H Urine Bilirubin Negative (NEGATIVE) Urine Urobilinogen Normal MG/DL (0.0-1.0) Urine Leukocyte Esterase 3+ (NEGATIVE) H Urine RBC 2-4 /HPF (0 - 2) H Urine WBC Tntc /HPF (0 - 2) H Urine Squamous Epithelial Cells Few /LPF (NONE/OCC) Urine Bacteria Many /HPF (NONE) H Lab Results Impression labs unremarkable EKG Diagnostic Results Rate: normal Rhythm: NSR ST Segments: other - NSST changes Rhythm Strip Diag. Results Rhythm Strip Time: 05:10 EP Interpretation: yes Rate: 70 Rhythm: NSR, no PVC's, no ectopy Chest X-Ray Diagnostic Results Chest X-Ray Diagnostic Results : Chest X-Ray Ordered: Yes # of Views/Limited/Complete: 1 View Indication: Shortness of Breath EP Interpretation: Yes Interpretation: no effusion, no pneumothorax, other - rml infiltrate Impression: Other - rml infiltrate Electronically Signed by: Wild Go MD Last Vital Signs Date Time Temp Pulse Resp B/P (MAP) Pulse Ox O2 Delivery O2 Flow Rate FiO2 08/11/17 02:12 98.5 72 24 121/65 99 Nasal Cannula 2.0 98.4 Status: improved Disposition: ADMITTED INPATIENT Condition: Serious WILD GO M.D. Aug 11, 2017 02:37
[2017-08-11] MEDS ORDERED: Solu-MEDROL 125mg Inj IVP ONE (02:45)
[2017-08-11] MEDS ORDERED: Albuterol ud Inhalation HHN ONE (02:45)
[2017-08-11 03:21] LABS: ANION GAP 1 mmol/L (5-15); BLOOD UREA NITROGEN 6 mg/dL (7-18); CALCIUM 8.6 MG/DL (8.5-10.1); CARBON DIOXIDE 37 MMOL/L (21-32); CHLORIDE 89 MMOL/L (98-107); CREATININE 0.6 MG/DL (0.55-1.30); POTASSIUM 4.5 MMOL/L (3.5-5.1); SODIUM 126 MMOL/L (136-145)
[2017-08-11 03:28] LABS: EOSINOPHILS % (AUTO) 3.8 % (0.0-3.0); HEMATOCRIT 39.7 % (37.0-47.0); HEMOGLOBIN 13.9 G/DL (12.0-16.0); LYMPHOCYTES % (AUTO) 23.7 % (20.0-45.0); MEAN CORPUSCULAR VOLUME 92 FL (80-99); MONOCYTES % (AUTO) 8.5 % (1.0-10.0); NEUTROPHILS % (AUTO) 63.1 % (45.0-75.0); PLATELET COUNT 145 K/UL (150-450); RED BLOOD COUNT 4.32 M/UL (4.20-5.40); RED CELL DISTRIBUTION WIDTH 12.9 % (11.6-14.8); WHITE BLOOD COUNT 8.8 K/UL (4.8-10.8)
[2017-08-11 03:36] LABS: ALANINE AMINOTRANSFERASE 16 U/L (12-78); ALBUMIN 2.8 G/DL (3.4-5.0); ALBUMIN/GLOBULIN RATIO 0.7 (1.0-2.7); ALKALINE PHOSPHATASE 58 U/L (46-116); ASPARTATE AMINO TRANSFERASE 29 U/L (15-37); BILIRUBIN,TOTAL 0.5 MG/DL (0.2-1.0); CKMB 0.5 NG/ML (0.0-3.6); CREATINE KINASE 64 U/L (26-308)
[2017-08-11 03:37] VITALS: BP 141/43
[2017-08-11 04:03] LABS: INR 1.2 (0.9-1.1)
[2017-08-11 04:07] LABS: BILIRUBIN, URINE NEGATIVE (NEGATIVE); GLUCOSE, URINE (UA) NEGATIVE (NEGATIVE); KETONES,URINE NEGATIVE (NEGATIVE); LEUKOCYTE ESTERASE ,URINE 3+ (NEGATIVE); NITRITE,URINE POSITIVE (NEGATIVE); PH,URINE 6 (4.5-8.0); PROTEIN,URINE NEGATIVE (NEGATIVE); UROBILINOGEN,URINE NORMAL MG/DL (0.0-1.0)
[2017-08-11 04:19] LABS: APPEARANCE,URINE CLOUDY; COLOR,URINE YELLOW
[2017-08-11] MEDS ORDERED: PROTONIX40 MG ORAL (04:27)
[2017-08-11] MEDS ORDERED: VESICARE10 MG ORAL (04:27)
[2017-08-11] MEDS ORDERED: NORCO 5-325 TA1 EACH ORAL (04:27)
[2017-08-11] MEDS ORDERED: XARELTO10 MG ORAL (04:27)
[2017-08-11] MEDS ORDERED: MULTIVITAMINS1 EAC8 ORAL (04:27)
[2017-08-11] MEDS ORDERED: Cefepime HCl 1 GM in D5W 55 ML IVPB ONE (04:30)
[2017-08-11] MEDS ORDERED: Cefepime 1gm vial ONE (04:44)
[2017-08-11 05:37] VITALS: BP 114/59
[2017-08-11 08:00] VITALS: BP 127/83
[2017-08-11] MEDS ORDERED: LORazepam Inj 2mg/ml 1ml IV PRN (09:30)
[2017-08-11] MEDS ORDERED: Morphine Sulfate 4mg/ml Inj IVP PRN (09:30)
[2017-08-11] MEDS ORDERED: Miralax 17gm pkt ORAL PRN (09:30)
[2017-08-11] MEDS ORDERED: Albuterol/Ipratropium 3ml neb HHN PRN (10:00)
[2017-08-11] MEDS ORDERED: Vancomycin 1 GM in D5W 275 ML IVPB SCH (11:00)
--- NOTE | 2017-08-11 11:22 | Diagnostic Imaging Report ---
Indication: Reason For Exam: SOB Technique: One view of the chest Comparison: 09/04/2016 Findings: There are degenerative changes of the bilateral shoulders. Monitoring device overlies the left heart. There is interim development or increase of left-sided pleural fluid. There is mild bilateral pulmonary parenchymal congestion. The heart is enlarged. There are mitral annular calcifications Impression: Left pleural effusion, new since 09/04/2016 Mild interstitial congestion Other findings as noted
[2017-08-11 12:00] VITALS: BP 139/79
[2017-08-11] MEDS: HydrALAZINE 25mg tab ORAL SCH ×2 (12:11→19:07)
[2017-08-11] MEDS: Promethazine/Codeine 5ml UD ORAL PRN ×2 (15:04→22:30)
[2017-08-11] MEDS: Norco 5mg/325mg tab ORAL PRN ×2 (15:06→22:30)
--- NOTE | 2017-08-11 15:07 | History and Physical ---
History of Present Illness General Date patient seen: Aug 11, 2017 Reason for Hospitalization: Fever Present Illness HPI 76-year-old female with hx of high blood pressure, COPD, depression, ETOH abuse , group home resident presented to ER with chief complaint of cough and fever, productive of sputum. Also complaining of sore throat and some wheezing. Denies any chest pain. Nothing made it better. Nothing made it worse. Pt looks pale and weaker than her usual. Allergies: Coded Allergies: NO KNOWN DRUG ALLERGIES (Unverified Allergy, Unknown, 07/11/15) Medication History Scheduled Al Hydroxide/mg Hydroxide (Mag-Al Plus Suspension), 30 ML PO prn Q6hr, (Reported ) Allopurinol* (Allopurinol*), 100 MG ORAL DAILY Atorvastatin Calcium* (Lipitor*), 10 MG ORAL BEDTIME Bisacodyl* (Dulcolax*), 10 MG ORAL PRN daily, (Reported) Bupropion HCl (Wellbutrin), 100 MG ORAL EVERY 12 HOURS, (Reported) Bupropion Hcl* (Bupropion Hcl Sr*), 200 MG ORAL DAILY, (Reported) Ceftriaxone Sodium (Ceftriaxone), 1 GM IVPB DAILY, (Reported) Diphenoxylate Hcl/Atropine (Lomotil Tablet), 2.5 MG ORAL EVERY 6 HOURS, ( Reported) Divalproex Sodium (Depakote), 250 MG ORAL EVERY 12 HOURS, (Reported) Docusate Sodium* (Docusate Sodium*), 250 MG ORAL DAILY, (Reported) Furosemide* (Lasix*), 40 MG ORAL DAILY, (Reported) Hydralazine HCl (Hydralazine HCl), 25 MG PO Q6HR, (Reported) Lisinopril (Lisinopril*), 5 MG ORAL DAILY Lorazepam (Lorazepam), 2 MG IV Q4H, (Reported) Metoprolol Tartrate (Metoprolol Tartrate), 25 MG ORAL Q12HR Mirtazapine* (Mirtazapine*), 15 MG ORAL BEDTIME, (Reported) Multivitamin With Minerals (Multivitamins With Minerals*), 1 TAB ORAL DAILY, ( Reported) Nitrofurantoin Monohyd/M-Cryst* (Macrobid 100 Mg*), 100 MG ORAL EVERY 12 HOURS Nitroglycerin (Nitroglycerin Patch), 1 EACH TD Q6HR, (Reported) [place]-3 Fatty Acids/Fish Oil (Fish Oil 1,000 Mg Capsule), 1,000 MG ORAL DAILY, ( Reported) Pantoprazole* (Protonix*), 40 MG ORAL DAILY, (Reported) Pseudoephedrine Hcl (Sudogest), 30 MG PO BID, (Reported) Pseudoephedrine Hcl (Sudogest), 30 MG PO bid prn, (Reported) Ranitidine Hcl (Ranitidine Hcl), 150 MG ORAL BEDTIME, (Reported) Risperidone* (Risperdal*), 3 MG ORAL BEDTIME Risperidone* (Risperdal*), 0.25 MG ORAL BID, (Reported) Rivaroxaban (Xarelto*), 20 MG ORAL DAILY, (Reported) Rivaroxaban (Xarelto*), 10 MG ORAL DAILY, (Reported) Solifenacin Succinate (Vesicare*), 10 MG ORAL DAILY, (Reported) Solifenacin Succinate (Vesicare*), 10 MG ORAL DAILY, (Reported) Sulfamethoxazole/Trimethoprim Ds Tablet* (Sulfamethoxazole-Tmp Ds Tablet*), 1 TAB ORAL TWICE A DAY, (Reported) Trazodone Hcl* (Desyrel*), 25 MG ORAL BEDTIME, (Reported) Vancomycin Hcl (Vancomycin), 1 GM IV Q12HR, (Reported) Scheduled PRN Acetaminophen (Acetaminophen), 650 MG ORAL Q4HR PRN for Mild Pain/Temp > 100.5, (Reported) Bisacodyl* (Dulcolax*), 10 MG RECTAL ONCE PRN for Constipation, (Reported) Hydrocodone Bit/Acetaminophen 5-325* ([place] 5-325 Tablet*), 1 TAB ORAL Q6HR PRN for For Pain, (Reported) Hydrocodone Bit/Acetaminophen 5-325* ([place] 5-325*), 1 TAB ORAL Q4H PRN for For Pain, (Reported) Ibuprofen* (Motrin*), 600 MG ORAL Q6H PRN for For Pain, (Reported) Lorazepam* (Lorazepam*), 0.5 MG IV PRN Q 4 hours PRN for For Anxiety, (Reported) Ondansetron* (Zofran*), 4 MG IV Q6H PRN for Nausea & Vomiting, (Reported) Oxycodone Hcl* (Oxycodone Hcl*), 30 MG ORAL Q8H PRN for For Pain, (Reported) Polyethylene Glycol 3350* (Miralax*), 17 GM ORAL PRN at bedtime PRN for Constipation, (Reported) Promethazine/Phenyleph/Codeine (Promethazine Vc-Codeine Syrup), 10 ML ORAL Q4H PRN for For Cough, (Reported) Tramadol Hcl* (Ultram*), 50 MG ORAL Q12HR PRN for For Pain, (Reported) Zolpidem Tartrate* (Ambien*), 5 MG ORAL BEDTIME PRN for Insomnia, (Reported) Miscellaneous Medications Lorazepam (Lorazepam), 4 MG IV, (Reported) Patient History Healthcare decision maker Resuscitation status Advanced Directive on File Past Medical/Surgical History Past Medical/Surgical History: (1) Depression (2) Seizure disorder (3) Hypertension (4) Dementia (5) Cerebral vascular disease (6) Bipolar depression (7) COPD (chronic obstructive pulmonary disease) (8) H/O ETOH abuse Review of Systems Constitutional: Reports: malaise, weakness Respiratory: Reports: cough, shortness of breath Physical Exam General Appearance: WD/WN, cachetic Lines, tubes and drains: peripheral HEENT: normocephalic, atraumatic Neck: non-tender, supple Respiratory/Chest: rhonchi - bilaterally, rhonchi - right Cardiovascular/Chest: normal peripheral pulses, normal rate Genitourinary/Rectal: normal genital exam, heme negative stool Extremities: non-tender Neurologic: practice clinician II-XII grossly normal Last 24 Hour Vital Signs Date Time Temp Pulse Resp B/P (MAP) Pulse Ox O2 Delivery O2 Flow Rate FiO2 08/11/17 12:11 127/83 08/11/17 12:00 98.4 85 20 139/79 99 Nasal Cannula 2.0 98.4 08/11/17 08:00 98.6 69 20 127/83 93 Nasal Cannula 2.0 98.6 08/11/17 06:23 98.4 112 21 114/59 100 Nasal Cannula 2.0 28 98.4 08/11/17 05:37 98.4 112 21 114/59 100 Nasal Cannula 2.0 98.4 08/11/17 03:37 98.4 76 20 141/43 100 Nasal Cannula 2.0 28 98.4 08/11/17 03:03 75 16 100 Nasal Cannula 2.0 28 08/11/17 02:55 28 08/11/17 02:55 72 24 99 Nasal Cannula 2.0 28 08/11/17 02:54 72 24 Nasal Cannula 2.0 28 08/11/17 02:12 98.5 72 24 121/65 99 Nasal Cannula 2.0 98.4 Intake and Output 08/10/17 08/11/17 19:00 07:00 Intake Total 2550 ml Balance 2550 ml Intake IV Total 2550 ml # Voids 1 Laboratory Tests Test 08/11/17 02:40 08/11/17 03:30 08/11/17 04:00 White Blood Count 8.8 K/UL (4.8-10.8) Red Blood Count 4.32 M/UL (4.20-5.40) Hemoglobin 13.9 G/DL (12.0-16.0) Hematocrit 39.7 % (37.0-47.0) Mean Corpuscular Volume 92 FL (80-99) Mean Corpuscular Hemoglobin 32.3 PG (27.0-31.0) H Mean Corpuscular Hemoglobin Concent 35.1 G/DL (32.0-36.0) Red Cell Distribution Width 12.9 % (11.6-14.8) Platelet Count 145 K/UL (150-450) L Mean Platelet Volume 7.2 FL (6.5-10.1) Neutrophils (%) (Auto) 63.1 % (45.0-75.0) Lymphocytes (%) (Auto) 23.7 % (20.0-45.0) Monocytes (%) (Auto) 8.5 % (1.0-10.0) Eosinophils (%) (Auto) 3.8 % (0.0-3.0) H Basophils (%) (Auto) 1.0 % (0.0-2.0) Sodium Level 126 MMOL/L (136-145) L Potassium Level 4.5 MMOL/L (3.5-5.1) Chloride Level 89 MMOL/L (98-107) L Carbon Dioxide Level 37 MMOL/L (21-32) H Anion Gap 1 mmol/L (5-15) L Blood Urea Nitrogen 6 mg/dL (7-18) L Creatinine 0.6 MG/DL (0.55-1.30) Estimat Glomerular Filtration Rate mL/min (>60) Glucose Level 80 MG/DL (74-106) Lactic Acid Level 0.80 mmol/L (0.66-2.22) Calcium Level 8.6 MG/DL (8.5-10.1) Total Bilirubin 0.5 MG/DL (0.2-1.0) Aspartate Amino Transf (AST/SGOT) 29 U/L (15-37) Alanine Aminotransferase (ALT/SGPT) 16 U/L (12-78) Alkaline Phosphatase 58 U/L (46-116) Total Creatine Kinase 64 U/L (26-308) Creatine Kinase MB 0.5 NG/ML (0.0-3.6) Creatine Kinase MB Relative Index 0.7 Troponin I 0.006 ng/mL (0.000-0.056) Total Protein 6.6 G/DL (6.4-8.2) Albumin 2.8 G/DL (3.4-5.0) L Globulin 3.8 g/dL Albumin/Globulin Ratio 0.7 (1.0-2.7) L Prothrombin Time 11.7 SEC (9.30-11.50) H Prothromb Time International Ratio 1.2 (0.9-1.1) H Activated Partial Thromboplast Time 32 SEC (23-33) Urine Color Yellow Urine Appearance Cloudy Urine pH 6 (4.5-8.0) Urine Specific [place] 1.015 (1.005-1.035) Urine Protein Negative (NEGATIVE) Urine Glucose (UA) Negative (NEGATIVE) Urine Ketones Negative (NEGATIVE) Urine Occult Blood 1+ (NEGATIVE) H Urine Nitrite Positive (NEGATIVE) H Urine Bilirubin Negative (NEGATIVE) Urine Urobilinogen Normal MG/DL (0.0-1.0) Urine Leukocyte Esterase 3+ (NEGATIVE) H Urine RBC 2-4 /HPF (0 - 2) H Urine WBC Tntc /HPF (0 - 2) H Urine Squamous Epithelial Cells Few /LPF (NONE/OCC) Urine Bacteria Many /HPF (NONE) H Height (Feet): 5 Height (Inches): 0.00 Weight (Pounds): 179 Medications Current Medications Medications (Trade) Dose Ordered Sig/Ibrahima Route PRN Reason Start Time Stop Time Status Last Admin Dose Admin Acetaminophen (Tylenol) 650 mg Q4H PRN ORAL FEVER>100.5 08/11/17 09:30 09/10/17 09:29 Acetaminophen/ Hydrocodone Bitart ([place] 5/325) 1 tab Q6H PRN ORAL Moderate Pain (Pain Scale 4-6) 08/11/17 09:30 08/18/17 09:29 Albuterol/ Ipratropium (Albuterol/ Ipratropium) 3 ml Q4H PRN HHN Shortness of Breath 08/11/17 10:00 08/16/17 09:59 Allopurinol (Zyloprim) 100 mg DAILY ORAL 08/12/17 10:00 09/11/17 09:59 Bupropion HCl (Wellbutrin) 100 mg EVERY 12 HOURS ORAL 08/11/17 21:00 09/10/17 20:59 Cefepime HCl 1 gm/ Sodium Chloride 55 ml @ 110 mls/hr DAILY IVPB 08/12/17 09:00 08/19/17 08:59 Dextrose (Dextrose 50%) STAT PRN IV Hypoglycemia 08/11/17 09:30 09/10/17 09:29 Divalproex Sodium (Depakote) 250 mg EVERY 12 HOURS ORAL 08/11/17 21:00 09/10/17 20:59 Furosemide (Lasix) 40 mg DAILY ORAL 08/12/17 09:00 09/11/17 08:59 Heparin Sodium (Porcine) (Heparin 5000 units/ml) 5,000 units EVERY 12 HOURS SUBQ 08/11/17 21:00 09/10/17 20:59 Hydralazine HCl (Apresoline) 25 mg Q6HR ORAL 08/11/17 12:00 09/10/17 11:59 08/11/17 12:11 Lorazepam (Ativan 2mg/ml 1ml) 2 mg Q2H PRN IV For Anxiety 08/11/17 09:30 08/18/17 09:29 Metoprolol Tartrate (Lopressor) 25 mg Q12HR ORAL 08/11/17 21:00 09/10/17 20:59 Mirtazapine (Remeron) 15 mg BEDTIME ORAL 08/11/17 21:00 09/10/17 20:59 Morphine Sulfate (Morphine Sulfate) 4 mg Q4H PRN IVP Severe Pain (Pain Scale 7-10) 08/11/17 09:30 08/18/17 09:29 Ondansetron HCl (Zofran) 4 mg Q6H PRN IVP Nausea & Vomiting 08/11/17 09:30 09/10/17 09:29 Polyethylene Glycol (Miralax) 17 gm DAILYPRN PRN ORAL Constipation 08/11/17 09:30 09/10/17 09:29 Promethazine HCl/ Codeine (Phenergan with Codeine) 5 ml Q4H PRN ORAL For Cough 08/11/17 14:00 09/10/17 13:59 Risperidone (RisperDAL) 0.25 mg BID ORAL 08/11/17 18:00 09/10/17 17:59 Rivaroxaban (Xarelto) 10 mg DAILY ORAL 08/12/17 09:00 09/11/17 08:59 Solifenacin (Vesicare) 10 mg DAILY ORAL 08/12/17 09:00 09/11/17 08:59 Vancomycin HCl 1 gm/Dextrose 275 ml @ 183.3 mls/ hr Q24H IVPB 08/11/17 11:00 08/16/17 10:59 08/11/17 12:04 Assessment/Plan Problem List: (1) Hospital-acquired pneumonia ICD Codes: J18.9 - Pneumonia, unspecified organism SNOMED: 915597013 (2) COPD (chronic obstructive pulmonary disease) ICD Codes: J44.9 - Chronic obstructive pulmonary disease, unspecified SNOMED: 17161944 (3) Failure to thrive SNOMED: 92177641 (4) Seizure disorder ICD Codes: G40.909 - Seizure disorder SNOMED: 033228773 (5) Wheelchair bound ICD Codes: Z99.3 - Dependence on wheelchair SNOMED: 718199273 (6) Bipolar depression ICD Codes: F31.30 - Bipolar disorder, current episode depressed, mild or moderate severity, unspecified SNOMED: 03970931 (7) Cerebral vascular disease ICD Codes: I67.9 - Cerebrovascular disease, unspecified SNOMED: 26431640 Assessment/Plan check sputum iv abx titrate fio2 to sat of 92% chest pt neuro/ psych to see check electrolytes dvt prophylaxis. GAYLE AGGARWAL Aug 11, 2017 15:07
--- NOTE | 2017-08-11 15:36 | Consultation ---
History of Present Illness General Date patient seen: Aug 11, 2017 Chief Complaint: Fever Present Illness HPI 76 y/o F with hx of HTN, COPD, long QT syndrome, Aflutter, CAD s/p stent, ETOH abuse, s/p b/l hip replacement, CVA, seizure disorder, intermediate resident presents to ED on 08/11 with 1 day onset of productive cough, fever, sore throat , wheezing Denied CP, SOB, n/v/d, rash. Afebrile here, no leukocytosis. u/a with pyruia. CXR with congestion. Allergies: Coded Allergies: NO KNOWN DRUG ALLERGIES (Unverified Allergy, Unknown, 07/11/15) Medication History Scheduled Al Hydroxide/mg Hydroxide (Mag-Al Plus Suspension), 30 ML PO prn Q6hr, (Reported ) Allopurinol* (Allopurinol*), 100 MG ORAL DAILY Atorvastatin Calcium* (Lipitor*), 10 MG ORAL BEDTIME Bisacodyl* (Dulcolax*), 10 MG ORAL PRN daily, (Reported) Bupropion HCl (Wellbutrin), 100 MG ORAL EVERY 12 HOURS, (Reported) Bupropion Hcl* (Bupropion Hcl Sr*), 200 MG ORAL DAILY, (Reported) Ceftriaxone Sodium (Ceftriaxone), 1 GM IVPB DAILY, (Reported) Diphenoxylate Hcl/Atropine (Lomotil Tablet), 2.5 MG ORAL EVERY 6 HOURS, ( Reported) Divalproex Sodium (Depakote), 250 MG ORAL EVERY 12 HOURS, (Reported) Docusate Sodium* (Docusate Sodium*), 250 MG ORAL DAILY, (Reported) Furosemide* (Lasix*), 40 MG ORAL DAILY, (Reported) Hydralazine HCl (Hydralazine HCl), 25 MG PO Q6HR, (Reported) Lisinopril (Lisinopril*), 5 MG ORAL DAILY Lorazepam (Lorazepam), 2 MG IV Q4H, (Reported) Metoprolol Tartrate (Metoprolol Tartrate), 25 MG ORAL Q12HR Mirtazapine* (Mirtazapine*), 15 MG ORAL BEDTIME, (Reported) Multivitamin With Minerals (Multivitamins With Minerals*), 1 TAB ORAL DAILY, ( Reported) Nitrofurantoin Monohyd/M-Cryst* (Macrobid 100 Mg*), 100 MG ORAL EVERY 12 HOURS Nitroglycerin (Nitroglycerin Patch), 1 EACH TD Q6HR, (Reported) [place]-3 Fatty Acids/Fish Oil (Fish Oil 1,000 Mg Capsule), 1,000 MG ORAL DAILY, ( Reported) Pantoprazole* (Protonix*), 40 MG ORAL DAILY, (Reported) Pseudoephedrine Hcl (Sudogest), 30 MG PO BID, (Reported) Pseudoephedrine Hcl (Sudogest), 30 MG PO bid prn, (Reported) Ranitidine Hcl (Ranitidine Hcl), 150 MG ORAL BEDTIME, (Reported) Risperidone* (Risperdal*), 3 MG ORAL BEDTIME Risperidone* (Risperdal*), 0.25 MG ORAL BID, (Reported) Rivaroxaban (Xarelto*), 20 MG ORAL DAILY, (Reported) Rivaroxaban (Xarelto*), 10 MG ORAL DAILY, (Reported) Solifenacin Succinate (Vesicare*), 10 MG ORAL DAILY, (Reported) Solifenacin Succinate (Vesicare*), 10 MG ORAL DAILY, (Reported) Sulfamethoxazole/Trimethoprim Ds Tablet* (Sulfamethoxazole-Tmp Ds Tablet*), 1 TAB ORAL TWICE A DAY, (Reported) Trazodone Hcl* (Desyrel*), 25 MG ORAL BEDTIME, (Reported) Vancomycin Hcl (Vancomycin), 1 GM IV Q12HR, (Reported) Scheduled PRN Acetaminophen (Acetaminophen), 650 MG ORAL Q4HR PRN for Mild Pain/Temp > 100.5, (Reported) Bisacodyl* (Dulcolax*), 10 MG RECTAL ONCE PRN for Constipation, (Reported) Hydrocodone Bit/Acetaminophen 5-325* ([place] 5-325 Tablet*), 1 TAB ORAL Q6HR PRN for For Pain, (Reported) Hydrocodone Bit/Acetaminophen 5-325* ([place] 5-325*), 1 TAB ORAL Q4H PRN for For Pain, (Reported) Ibuprofen* (Motrin*), 600 MG ORAL Q6H PRN for For Pain, (Reported) Lorazepam* (Lorazepam*), 0.5 MG IV PRN Q 4 hours PRN for For Anxiety, (Reported) Ondansetron* (Zofran*), 4 MG IV Q6H PRN for Nausea & Vomiting, (Reported) Oxycodone Hcl* (Oxycodone Hcl*), 30 MG ORAL Q8H PRN for For Pain, (Reported) Polyethylene Glycol 3350* (Miralax*), 17 GM ORAL PRN at bedtime PRN for Constipation, (Reported) Promethazine/Phenyleph/Codeine (Promethazine Vc-Codeine Syrup), 10 ML ORAL Q4H PRN for For Cough, (Reported) Tramadol Hcl* (Ultram*), 50 MG ORAL Q12HR PRN for For Pain, (Reported) Zolpidem Tartrate* (Ambien*), 5 MG ORAL BEDTIME PRN for Insomnia, (Reported) Miscellaneous Medications Lorazepam (Lorazepam), 4 MG IV, (Reported) Patient History Healthcare decision maker Resuscitation status Advanced Directive on File Patient History Narrative PMHx: as above Shx: reviewed Fhx: non contributory Review of Systems All Other Systems: negative except mentioned in HPI Physical Exam Physical Exam Narrative General Appearance: WD/WN, cachetic Lines, tubes and drains: peripheral HEENT: normocephalic, atraumatic Neck: non-tender, supple Respiratory/Chest: rhonchi - bilaterally, rhonchi - right Cardiovascular/Chest: normal peripheral pulses, normal rate Genitourinary/Rectal: normal genital exam, heme negative stool Extremities: non-tender 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 Last 24 Hour Vital Signs Date Time Temp Pulse Resp B/P (MAP) Pulse Ox O2 Delivery O2 Flow Rate FiO2 08/11/17 15:06 98.4 08/11/17 12:11 127/83 08/11/17 12:00 98.4 85 20 139/79 99 Nasal Cannula 2.0 98.4 08/11/17 08:00 98.6 69 20 127/83 93 Nasal Cannula 2.0 98.6 08/11/17 06:23 98.4 112 21 114/59 100 Nasal Cannula 2.0 28 98.4 08/11/17 05:37 98.4 112 21 114/59 100 Nasal Cannula 2.0 98.4 08/11/17 03:37 98.4 76 20 141/43 100 Nasal Cannula 2.0 28 98.4 08/11/17 03:03 75 16 100 Nasal Cannula 2.0 28 3/12/18 02:55 28 08/11/17 02:55 72 24 99 Nasal Cannula 2.0 28 08/11/17 02:54 72 24 Nasal Cannula 2.0 28 08/11/17 02:12 98.5 72 24 121/65 99 Nasal Cannula 2.0 98.4 Intake and Output 08/10/17 08/11/17 19:00 07:00 Intake Total 2550 ml Balance 2550 ml Intake IV Total 2550 ml # Voids 1 Laboratory Tests Test 08/11/17 02:40 08/11/17 03:30 08/11/17 04:00 White Blood Count 8.8 K/UL (4.8-10.8) Red Blood Count 4.32 M/UL (4.20-5.40) Hemoglobin 13.9 G/DL (12.0-16.0) Hematocrit 39.7 % (37.0-47.0) Mean Corpuscular Volume 92 FL (80-99) Mean Corpuscular Hemoglobin 32.3 PG (27.0-31.0) H Mean Corpuscular Hemoglobin Concent 35.1 G/DL (32.0-36.0) Red Cell Distribution Width 12.9 % (11.6-14.8) Platelet Count 145 K/UL (150-450) L Mean Platelet Volume 7.2 FL (6.5-10.1) Neutrophils (%) (Auto) 63.1 % (45.0-75.0) Lymphocytes (%) (Auto) 23.7 % (20.0-45.0) Monocytes (%) (Auto) 8.5 % (1.0-10.0) Eosinophils (%) (Auto) 3.8 % (0.0-3.0) H Basophils (%) (Auto) 1.0 % (0.0-2.0) Sodium Level 126 MMOL/L (136-145) L Potassium Level 4.5 MMOL/L (3.5-5.1) Chloride Level 89 MMOL/L (98-107) L Carbon Dioxide Level 37 MMOL/L (21-32) H Anion Gap 1 mmol/L (5-15) L Blood Urea Nitrogen 6 mg/dL (7-18) L Creatinine 0.6 MG/DL (0.55-1.30) Estimat Glomerular Filtration Rate mL/min (>60) Glucose Level 80 MG/DL (74-106) Lactic Acid Level 0.80 mmol/L (0.66-2.22) Calcium Level 8.6 MG/DL (8.5-10.1) Total Bilirubin 0.5 MG/DL (0.2-1.0) Aspartate Amino Transf (AST/SGOT) 29 U/L (15-37) Alanine Aminotransferase (ALT/SGPT) 16 U/L (12-78) Alkaline Phosphatase 58 U/L (46-116) Total Creatine Kinase 64 U/L (26-308) Creatine Kinase MB 0.5 NG/ML (0.0-3.6) Creatine Kinase MB Relative Index 0.7 Troponin I 0.006 ng/mL (0.000-0.056) Total Protein 6.6 G/DL (6.4-8.2) Albumin 2.8 G/DL (3.4-5.0) L Globulin 3.8 g/dL Albumin/Globulin Ratio 0.7 (1.0-2.7) L Prothrombin Time 11.7 SEC (9.30-11.50) H Prothromb Time International Ratio 1.2 (0.9-1.1) H Activated Partial Thromboplast Time 32 SEC (23-33) Urine Color Yellow Urine Appearance Cloudy Urine pH 6 (4.5-8.0) Urine Specific [place] 1.015 (1.005-1.035) Urine Protein Negative (NEGATIVE) Urine Glucose (UA) Negative (NEGATIVE) Urine Ketones Negative (NEGATIVE) Urine Occult Blood 1+ (NEGATIVE) H Urine Nitrite Positive (NEGATIVE) H Urine Bilirubin Negative (NEGATIVE) Urine Urobilinogen Normal MG/DL (0.0-1.0) Urine Leukocyte Esterase 3+ (NEGATIVE) H Urine RBC 2-4 /HPF (0 - 2) H Urine WBC Tntc /HPF (0 - 2) H Urine Squamous Epithelial Cells Few /LPF (NONE/OCC) Urine Bacteria Many /HPF (NONE) H Height (Feet): 5 Height (Inches): 0.00 Weight (Pounds): 179 Medications Current Medications Medications (Trade) Dose Ordered Sig/Ibrahima Route PRN Reason Start Time Stop Time Status Last Admin Dose Admin Acetaminophen (Tylenol) 650 mg Q4H PRN ORAL FEVER>100.5 08/11/17 09:30 09/10/17 09:29 Acetaminophen/ Hydrocodone Bitart ([place] 5/325) 1 tab Q6H PRN ORAL Moderate Pain (Pain Scale 4-6) 08/11/17 09:30 08/18/17 09:29 08/11/17 15:06 Albuterol/ Ipratropium (Albuterol/ Ipratropium) 3 ml Q4H PRN HHN Shortness of Breath 08/11/17 10:00 08/16/17 09:59 Allopurinol (Zyloprim) 100 mg DAILY ORAL 08/12/17 10:00 09/11/17 09:59 Bupropion HCl (Wellbutrin) 100 mg EVERY 12 HOURS ORAL 08/11/17 21:00 09/10/17 20:59 Cefepime HCl 1 gm/ Sodium Chloride 55 ml @ 110 mls/hr DAILY IVPB 08/12/17 09:00 08/19/17 08:59 Dextrose (Dextrose 50%) STAT PRN IV Hypoglycemia 08/11/17 09:30 09/10/17 09:29 Divalproex Sodium (Depakote) 250 mg EVERY 12 HOURS ORAL 08/11/17 21:00 09/10/17 20:59 Furosemide (Lasix) 40 mg DAILY ORAL 08/12/17 09:00 09/11/17 08:59 Heparin Sodium (Porcine) (Heparin 5000 units/ml) 5,000 units EVERY 12 HOURS SUBQ 08/11/17 21:00 09/10/17 20:59 Hydralazine HCl (Apresoline) 25 mg Q6HR ORAL 08/11/17 12:00 09/10/17 11:59 08/11/17 12:11 Lorazepam (Ativan 2mg/ml 1ml) 2 mg Q2H PRN IV For Anxiety 08/11/17 09:30 08/18/17 09:29 Metoprolol Tartrate (Lopressor) 25 mg Q12HR ORAL 08/11/17 21:00 09/10/17 20:59 Mirtazapine (Remeron) 15 mg BEDTIME ORAL 08/11/17 21:00 09/10/17 20:59 Morphine Sulfate (Morphine Sulfate) 4 mg Q4H PRN IVP Severe Pain (Pain Scale 7-10) 08/11/17 09:30 08/18/17 09:29 Ondansetron HCl (Zofran) 4 mg Q6H PRN IVP Nausea & Vomiting 08/11/17 09:30 09/10/17 09:29 Polyethylene Glycol (Miralax) 17 gm DAILYPRN PRN ORAL Constipation 08/11/17 09:30 09/10/17 09:29 Promethazine HCl/ Codeine (Phenergan with Codeine) 5 ml Q4H PRN ORAL For Cough 08/11/17 14:00 09/10/17 13:59 08/11/17 15:04 Risperidone (RisperDAL) 0.25 mg BID ORAL 08/11/17 18:00 09/10/17 17:59 Rivaroxaban (Xarelto) 10 mg DAILY ORAL 08/12/17 09:00 09/11/17 08:59 Solifenacin (Vesicare) 10 mg DAILY ORAL 08/12/17 09:00 09/11/17 08:59 Vancomycin HCl 1 gm/Dextrose 275 ml @ 183.3 mls/ hr Q24H IVPB 08/11/17 11:00 08/16/17 10:59 08/11/17 12:04 Assessment/Plan Assessment/Plan Abx: IV Vancomycin 08/11- Cefepime 08/11- Levaquin x1 08/11 Assessment: Cough/fever- r/o Influenza- ?PNA -no fever here so far -CXR: Left pleural effusion, new since 09/04/2016 Mild interstitial congestion - no leukocytosis Pyuria- no UTI symptoms HTN COPD long QT syndrome Aflutter CAD s/p stent ETOH abuse s/p b/l hip replacement CVA seizure disorder intermediate resident Plan: -D/c IV Vancomycin -Switch Cefepime to cefriaxone for possible pNA- -Start empiric Tamiflu -obtain influenza sc. -f/u cx -Monitor CBC/BMP, temperatures -aspiration precautions Thank you for this consultation. Will continue to follow along with you. Discussed with Danica Lacy M.D. Aug 11, 2017 15:35
[2017-08-11 16:26] VITALS: BP 132/56
[2017-08-11] MEDS: Oseltamivir 75mg cap ORAL SCH (19:07)
[2017-08-11 20:00] VITALS: BP 130/55
[2017-08-11] MEDS ORDERED: Cefepime HCl 2 GM in D5W 110 ML IV SCH (21:00)
[2017-08-11] MEDS: Heparin 5000 units/ml inj SUBQ SCH (21:00)
--- NOTE | 2017-08-11 21:37 | Consultation ---
History of Present Illness General Date patient seen: Aug 11, 2017 Chief Complaint: Fever Present Illness HPI 76-year-old female with hx of high blood pressure, COPD, depression, ETOH abuse , came in with chief complaint of cough and fever. the pt pw alcohol withdrawal and anxiety cognitive impairment. no si/hi Allergies: Coded Allergies: NO KNOWN DRUG ALLERGIES (Unverified Allergy, Unknown, 07/11/15) Medication History Scheduled Al Hydroxide/mg Hydroxide (Mag-Al Plus Suspension), 30 ML PO prn Q6hr, (Reported ) Allopurinol* (Allopurinol*), 100 MG ORAL DAILY Atorvastatin Calcium* (Lipitor*), 10 MG ORAL BEDTIME Bisacodyl* (Dulcolax*), 10 MG ORAL PRN daily, (Reported) Bupropion HCl (Wellbutrin), 100 MG ORAL EVERY 12 HOURS, (Reported) Bupropion Hcl* (Bupropion Hcl Sr*), 200 MG ORAL DAILY, (Reported) Ceftriaxone Sodium (Ceftriaxone), 1 GM IVPB DAILY, (Reported) Diphenoxylate Hcl/Atropine (Lomotil Tablet), 2.5 MG ORAL EVERY 6 HOURS, ( Reported) Divalproex Sodium (Depakote), 250 MG ORAL EVERY 12 HOURS, (Reported) Docusate Sodium* (Docusate Sodium*), 250 MG ORAL DAILY, (Reported) Furosemide* (Lasix*), 40 MG ORAL DAILY, (Reported) Hydralazine HCl (Hydralazine HCl), 25 MG PO Q6HR, (Reported) Lisinopril (Lisinopril*), 5 MG ORAL DAILY Lorazepam (Lorazepam), 2 MG IV Q4H, (Reported) Metoprolol Tartrate (Metoprolol Tartrate), 25 MG ORAL Q12HR Mirtazapine* (Mirtazapine*), 15 MG ORAL BEDTIME, (Reported) Multivitamin With Minerals (Multivitamins With Minerals*), 1 TAB ORAL DAILY, ( Reported) Nitrofurantoin Monohyd/M-Cryst* (Macrobid 100 Mg*), 100 MG ORAL EVERY 12 HOURS Nitroglycerin (Nitroglycerin Patch), 1 EACH TD Q6HR, (Reported) [place]-3 Fatty Acids/Fish Oil (Fish Oil 1,000 Mg Capsule), 1,000 MG ORAL DAILY, ( Reported) Pantoprazole* (Protonix*), 40 MG ORAL DAILY, (Reported) Pseudoephedrine Hcl (Sudogest), 30 MG PO BID, (Reported) Pseudoephedrine Hcl (Sudogest), 30 MG PO bid prn, (Reported) Ranitidine Hcl (Ranitidine Hcl), 150 MG ORAL BEDTIME, (Reported) Risperidone* (Risperdal*), 3 MG ORAL BEDTIME Risperidone* (Risperdal*), 0.25 MG ORAL BID, (Reported) Rivaroxaban (Xarelto*), 20 MG ORAL DAILY, (Reported) Rivaroxaban (Xarelto*), 10 MG ORAL DAILY, (Reported) Solifenacin Succinate (Vesicare*), 10 MG ORAL DAILY, (Reported) Solifenacin Succinate (Vesicare*), 10 MG ORAL DAILY, (Reported) Sulfamethoxazole/Trimethoprim Ds Tablet* (Sulfamethoxazole-Tmp Ds Tablet*), 1 TAB ORAL TWICE A DAY, (Reported) Trazodone Hcl* (Desyrel*), 25 MG ORAL BEDTIME, (Reported) Vancomycin Hcl (Vancomycin), 1 GM IV Q12HR, (Reported) Scheduled PRN Acetaminophen (Acetaminophen), 650 MG ORAL Q4HR PRN for Mild Pain/Temp > 100.5, (Reported) Bisacodyl* (Dulcolax*), 10 MG RECTAL ONCE PRN for Constipation, (Reported) Hydrocodone Bit/Acetaminophen 5-325* (English 5-325 Tablet*), 1 TAB ORAL Q6HR PRN for For Pain, (Reported) Hydrocodone Bit/Acetaminophen 5-325* (English 5-325*), 1 TAB ORAL Q4H PRN for For Pain, (Reported) Ibuprofen* (Motrin*), 600 MG ORAL Q6H PRN for For Pain, (Reported) Lorazepam* (Lorazepam*), 0.5 MG IV PRN Q 4 hours PRN for For Anxiety, (Reported) Ondansetron* (Zofran*), 4 MG IV Q6H PRN for Nausea & Vomiting, (Reported) Oxycodone Hcl* (Oxycodone Hcl*), 30 MG ORAL Q8H PRN for For Pain, (Reported) Polyethylene Glycol 3350* (Miralax*), 17 GM ORAL PRN at bedtime PRN for Constipation, (Reported) Promethazine/Phenyleph/Codeine (Promethazine Vc-Codeine Syrup), 10 ML ORAL Q4H PRN for For Cough, (Reported) Tramadol Hcl* (Ultram*), 50 MG ORAL Q12HR PRN for For Pain, (Reported) Zolpidem Tartrate* (Ambien*), 5 MG ORAL BEDTIME PRN for Insomnia, (Reported) Miscellaneous Medications Lorazepam (Lorazepam), 4 MG IV, (Reported) Patient History History Provided By: Patient, Medical Record, PMD Healthcare decision maker Resuscitation status Advanced Directive on File Past Medical/Surgical History Past Medical/Surgical History: (1) Rash and other nonspecific skin eruption (2) Insect bite (3) Scabies (4) Syncope (5) Phlebitis (6) Back pain (7) Chronic low back pain (8) Compression fracture (9) Hypocalcemia (10) Hypokalemia (11) Intractable pain (12) Incontinence in female (13) Fracture, supracondylar, elbow, left, closed (14) Intractable back pain (15) Hypovolemia due to hemorrhage (16) Low back pain (17) Hypovolemic shock (18) Gastrointestinal bleeding (19) Epistaxis (20) Cephalgia (21) Sepsis (22) Foot contusion (23) Hemorrhagic shock (24) Hypochloremia (25) Insomnia (26) Contusion of knee (27) Contusion of knee (28) Herpes labialis (29) Hyponatremia (30) Pulmonary edema (31) Sore throat (32) Sore throat (33) Head trauma (34) UTI (lower urinary tract infection) (35) Eye problem (36) Eye problem (37) Abrasion of knee, right (38) Abrasion of knee (39) Atrial fibrillation with RVR (40) Scalp abrasion (41) Scalp abrasion (42) Low grade fever (43) Post-concussion headache (44) Multiple injuries due to trauma (45) Anxiety (46) Chronic pain (47) Acute encephalopathy (48) Headache (49) Hyponatremia (50) Lumbago (51) Anemia (52) Hypercholesteremia (53) Vertigo (54) ATN (acute tubular necrosis) (55) A-fib (56) Encephalopathy acute (57) GI bleed (58) Multiple joint pain (59) UTI (lower urinary tract infection) (60) Osteoarthritis of multiple joints (61) Diastolic CHF, acute on chronic (62) Sprain of left elbow (63) Atrial fibrillation with RVR (64) Recurrent falls (65) Osteomyelitis of toe of right foot (66) Foot ulcer, right (67) Cellulitis of toe of right foot (68) Major depression (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) H/O: CVA (cerebrovascular accident) (71) Generalized weakness (72) Failure to thrive (73) Dehydration (74) Iron deficiency (75) Insomnia (76) Gout (77) Diarrhea (78) Anemia, chronic disease (79) Arthritis (80) Contusion (81) UTI (urinary tract infection) (82) COPD with exacerbation (83) COPD (chronic obstructive pulmonary disease) (84) Bipolar depression (85) Cerebral vascular disease (86) H/O ETOH abuse (87) Hospital-acquired pneumonia (88) Wheelchair bound (89) Scalp hematoma (90) Fall (91) fall (92) chest wall contusion (93) [id number] (94) Anxiety (95) Depression (96) Failure to thrive (97) HTN (hypertension) (98) Wrist contusion (99) Recurrent falls (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 (101) finger nail avulsion (102) Abdominal distension (103) Atrial flutter (104) Abdominal pain (105) UTI (lower urinary tract infection) (106) New onset atrial flutter (107) CAD (coronary artery disease) (108) Dementia (109) Hyponatremia (110) Constipation (111) Accelerated hypertension (112) Atrial fibrillation (113) Hypertension (114) 3944 (115) 3945 (116) 56320 (117) Elevated cholesterol with high triglycerides (118) Acute CHF (119) Atrial fibrillation with RVR (120) Pulmonary edema (121) Seizure disorder (122) CHF exacerbation (123) Depression (124) H/O ETOH abuse (125) SOB (shortness of breath) (126) Atrial flutter with rapid ventricular response (127) Diastolic CHF, acute on chronic (128) Acute diastolic CHF (congestive heart failure) (129) Pulmonary edema (130) Atrial flutter with controlled response (131) UTI (lower urinary tract infection) (132) Hyponatremia (133) Hypochloremia Review of Systems Psychiatric: Reports: prior hx, anxiety, depressed feelings, emotional problems Physical Exam General Appearance: no apparent distress, alert, agitated Last 24 Hour Vital Signs Date Time Temp Pulse Resp B/P (MAP) Pulse Ox O2 Delivery O2 Flow Rate FiO2 08/11/17 20:00 98.1 84 22 130/55 95 98.1 08/11/17 19:07 132/56 08/11/17 16:26 98.2 90 18 132/56 97 Nasal Cannula 2.0 98.2 08/11/17 15:06 98.2 08/11/17 15:06 98.4 08/11/17 12:11 127/83 08/11/17 12:00 98.4 85 20 139/79 99 Nasal Cannula 2.0 98.4 08/11/17 08:00 98.6 69 20 127/83 93 Nasal Cannula 2.0 98.6 08/11/17 06:23 98.4 112 21 114/59 100 Nasal Cannula 2.0 28 98.4 08/11/17 05:37 98.4 112 21 114/59 100 Nasal Cannula 2.0 98.4 08/11/17 03:37 98.4 76 20 141/43 100 Nasal Cannula 2.0 28 98.4 08/11/17 03:03 75 16 100 Nasal Cannula 2.0 28 08/11/17 02:55 28 08/11/17 02:55 72 24 99 Nasal Cannula 2.0 28 08/11/17 02:54 72 24 Nasal Cannula 2.0 28 08/11/17 02:12 98.5 72 24 121/65 99 Nasal Cannula 2.0 98.4 Intake and Output 08/10/17 08/11/17 19:00 07:00 Intake Total 2550 ml Balance 2550 ml IV Total 2550 ml # Voids 1 Laboratory Tests Test 08/11/17 02:40 08/11/17 03:30 08/11/17 04:00 White Blood Count 8.8 K/UL (4.8-10.8) Red Blood Count 4.32 M/UL (4.20-5.40) Hemoglobin 13.9 G/DL (12.0-16.0) Hematocrit 39.7 % (37.0-47.0) Mean Corpuscular Volume 92 FL (80-99) Mean Corpuscular Hemoglobin 32.3 PG (27.0-31.0) H Mean Corpuscular Hemoglobin Concent 35.1 G/DL (32.0-36.0) Red Cell Distribution Width 12.9 % (11.6-14.8) Platelet Count 145 K/UL (150-450) L Mean Platelet Volume 7.2 FL (6.5-10.1) Neutrophils (%) (Auto) 63.1 % (45.0-75.0) Lymphocytes (%) (Auto) 23.7 % (20.0-45.0) Monocytes (%) (Auto) 8.5 % (1.0-10.0) Eosinophils (%) (Auto) 3.8 % (0.0-3.0) H Basophils (%) (Auto) 1.0 % (0.0-2.0) Sodium Level 126 MMOL/L (136-145) L Potassium Level 4.5 MMOL/L (3.5-5.1) Chloride Level 89 MMOL/L (98-107) L Carbon Dioxide Level 37 MMOL/L (21-32) H Anion Gap 1 mmol/L (5-15) L Blood Urea Nitrogen 6 mg/dL (7-18) L Creatinine 0.6 MG/DL (0.55-1.30) Estimat Glomerular Filtration Rate mL/min (>60) Glucose Level 80 MG/DL (74-106) Lactic Acid Level 0.80 mmol/L (0.66-2.22) Calcium Level 8.6 MG/DL (8.5-10.1) Total Bilirubin 0.5 MG/DL (0.2-1.0) Aspartate Amino Transf (AST/SGOT) 29 U/L (15-37) Alanine Aminotransferase (ALT/SGPT) 16 U/L (12-78) Alkaline Phosphatase 58 U/L (46-116) Total Creatine Kinase 64 U/L (26-308) Creatine Kinase MB 0.5 NG/ML (0.0-3.6) Creatine Kinase MB Relative Index 0.7 Troponin I 0.006 ng/mL (0.000-0.056) Total Protein 6.6 G/DL (6.4-8.2) Albumin 2.8 G/DL (3.4-5.0) L Globulin 3.8 g/dL Albumin/Globulin Ratio 0.7 (1.0-2.7) L Prothrombin Time 11.7 SEC (9.30-11.50) H Prothromb Time International Ratio 1.2 (0.9-1.1) H Activated Partial Thromboplast Time 32 SEC (23-33) Urine Color Yellow Urine Appearance Cloudy Urine pH 6 (4.5-8.0) Urine Specific Veteran 1.015 (1.005-1.035) Urine Protein Negative (NEGATIVE) Urine Glucose (UA) Negative (NEGATIVE) Urine Ketones Negative (NEGATIVE) Urine Occult Blood 1+ (NEGATIVE) H Urine Nitrite Positive (NEGATIVE) H Urine Bilirubin Negative (NEGATIVE) Urine Urobilinogen Normal MG/DL (0.0-1.0) Urine Leukocyte Esterase 3+ (NEGATIVE) H Urine RBC 2-4 /HPF (0 - 2) H Urine WBC Tntc /HPF (0 - 2) H Urine Squamous Epithelial Cells Few /LPF (NONE/OCC) Urine Bacteria Many /HPF (NONE) H Height (Feet): 5 Height (Inches): 0.00 Weight (Pounds): 179 Medications Current Medications Medications (Trade) Dose Ordered Sig/Ibrahima Route PRN Reason Start Time Stop Time Status Last Admin Dose Admin Acetaminophen (Tylenol) 650 mg Q4H PRN ORAL FEVER>100.5 08/11/17 09:30 09/10/17 09:29 Acetaminophen/ Hydrocodone Bitart (English 5/325) 1 tab Q6H PRN ORAL Moderate Pain (Pain Scale 4-6) 08/11/17 09:30 08/18/17 09:29 08/11/17 15:06 Albuterol/ Ipratropium (Albuterol/ Ipratropium) 3 ml Q4H PRN HHN Shortness of Breath 08/11/17 10:00 08/16/17 09:59 Allopurinol (Zyloprim) 100 mg DAILY ORAL 08/12/17 10:00 09/11/17 09:59 Bupropion HCl (Wellbutrin) 100 mg EVERY 12 HOURS ORAL 08/11/17 21:00 09/10/17 20:59 Ceftriaxone Sodium 2 gm/ Sodium Chloride 55 ml @ 110 mls/hr Q24H IVPB 08/12/17 09:00 08/19/17 08:59 Dextrose (Dextrose 50%) STAT PRN IV Hypoglycemia 08/11/17 09:30 09/10/17 09:29 Divalproex Sodium (Depakote) 250 mg EVERY 12 HOURS ORAL 08/11/17 21:00 09/10/17 20:59 Furosemide (Lasix) 40 mg DAILY ORAL 08/12/17 09:00 09/11/17 08:59 Heparin Sodium (Porcine) (Heparin 5000 units/ml) 5,000 units EVERY 12 HOURS SUBQ 08/11/17 21:00 09/10/17 20:59 Hydralazine HCl (Apresoline) 25 mg Q6HR ORAL 08/11/17 12:00 09/10/17 11:59 08/11/17 19:07 Lorazepam (Ativan 2mg/ml 1ml) 2 mg Q2H PRN IV For Anxiety 08/11/17 09:30 08/18/17 09:29 Metoprolol Tartrate (Lopressor) 25 mg Q12HR ORAL 08/11/17 21:00 09/10/17 20:59 Mirtazapine (Remeron) 15 mg BEDTIME ORAL 08/11/17 21:00 09/10/17 20:59 Morphine Sulfate (Morphine Sulfate) 4 mg Q4H PRN IVP Severe Pain (Pain Scale 7-10) 08/11/17 09:30 08/18/17 09:29 Ondansetron HCl (Zofran) 4 mg Q6H PRN IVP Nausea & Vomiting 08/11/17 09:30 09/10/17 09:29 Oseltamivir Phosphate (Tamiflu) 75 mg TWICE A DAY ORAL 08/11/17 18:00 08/16/17 09:01 08/11/17 19:07 Polyethylene Glycol (Miralax) 17 gm DAILYPRN PRN ORAL Constipation 08/11/17 09:30 09/10/17 09:29 Promethazine HCl/ Codeine (Phenergan with Codeine) 5 ml Q4H PRN ORAL For Cough 08/11/17 14:00 09/10/17 13:59 08/11/17 15:04 Risperidone (RisperDAL) 0.25 mg BID ORAL 08/11/17 18:00 09/10/17 17:59 08/11/17 19:06 Rivaroxaban (Xarelto) 10 mg DAILY ORAL 08/12/17 09:00 09/11/17 08:59 Solifenacin (Vesicare) 10 mg DAILY ORAL 08/12/17 09:00 09/11/17 08:59 Assessment/Plan Status: stable Assessment/Plan alcohol withdrawal anxiety mdd -cont remeron -cont ativan -cont Luiz aWng M.D. Aug 11, 2017 21:37
[2017-08-11] MEDS: Metoprolol 25mg tab ORAL SCH (22:31)
[2017-08-12 00:57] VITALS: BP 137/79
[2017-08-12] MEDS: HydrALAZINE 25mg tab ORAL SCH ×4 (01:08→17:00)
[2017-08-12 04:00] VITALS: BP 131/74
[2017-08-12] MEDS: Promethazine/Codeine 5ml UD ORAL PRN ×3 (05:56→17:11)
[2017-08-12] MEDS: Norco 5mg/325mg tab ORAL PRN ×2 (05:56→20:59)
[2017-08-12 08:00] VITALS: BP 130/76
[2017-08-12 08:37] LABS: BASOPHILS % (AUTO) 1.5 % (0.0-2.0); HEMATOCRIT 35.4 % (37.0-47.0); HEMOGLOBIN 12.5 G/DL (12.0-16.0); LYMPHOCYTES % (AUTO) 20.7 % (20.0-45.0); MEAN CORPUSCULAR VOLUME 94 FL (80-99); MONOCYTES % (AUTO) 9.3 % (1.0-10.0); NEUTROPHILS % (AUTO) 66.5 % (45.0-75.0); PLATELET COUNT 162 K/UL (150-450); RED BLOOD COUNT 3.75 M/UL (4.20-5.40); RED CELL DISTRIBUTION WIDTH 13.1 % (11.6-14.8); WHITE BLOOD COUNT 7.9 K/UL (4.8-10.8)
[2017-08-12 08:55] LABS: ALBUMIN 2.5 G/DL (3.4-5.0); ANION GAP 4 mmol/L (5-15); BLOOD UREA NITROGEN 5 mg/dL (7-18); CALCIUM 8.5 MG/DL (8.5-10.1); CARBON DIOXIDE 33 MMOL/L (21-32); CHLORIDE 97 MMOL/L (98-107); CREATININE 0.6 MG/DL (0.55-1.30); PHOSPHORUS 3.6 MG/DL (2.5-4.9); POTASSIUM 4.1 MMOL/L (3.5-5.1); SODIUM 133 MMOL/L (136-145)
[2017-08-12] MEDS: Heparin 5000 units/ml inj SUBQ SCH ×2 (09:00→20:48)
[2017-08-12] MEDS ORDERED: Solifenacin 10mg tab ORAL SCH (09:00)
[2017-08-12] MEDS ORDERED: Cefepime HCl 1 GM in NS 55 ML IVPB SCH (09:00)
[2017-08-12] MEDS: Allopurinol 100mg Tab ORAL SCH (09:01)
[2017-08-12] MEDS: Metoprolol 25mg tab ORAL SCH ×2 (09:02→20:48)
[2017-08-12] MEDS: Oseltamivir 75mg cap ORAL SCH ×2 (09:02→17:11)
[2017-08-12] MEDS: Furosemide 40mg tab ORAL SCH (09:02)
[2017-08-12] MEDS: Xarelto 10mg tab ORAL SCH (09:02)
[2017-08-12] MEDS: cefTRIAXone 2 GM in NS 55 ML IVPB SCH (09:03)
[2017-08-12 12:00] VITALS: BP_SYST 116; BP_SYST 124; BP_DIAS 56; BP_DIAS 86
--- NOTE | 2017-08-12 12:39 | Infectious Diseases Prog Note ---
Assessment/Plan Assessment/Plan Abx: IV Vancomycin 08/11- Cefepime 08/11- Levaquin x1 08/11 Assessment: Cough/fever- supect influenza despite neg screen test; possible PNA vs pulmonary congestion -no fever here so far -CXR: Left pleural effusion, new since 09/04/2016 Mild interstitial congestion - no leukocytosis Pyuria/assymptomatic bacteriuria- no UTI symptoms -ucx >100K GNRs Gram positive bacteremia- r/o contaminant vs real -bcx 08/11 06/05 GPC clusters HTN COPD long QT syndrome Aflutter CAD s/p stent ETOH abuse s/p b/l hip replacement CVA seizure disorder senior living resident Plan: -Continue cefriaxone abx d#07/07- for possible pNA and empiric Tamiflu #07/07 -08/11 SP IV Vancomycin #1, Cefepime #1 -Resumed IV Vancomcyin #2 pending ID Bcx and repeat Bcx -2 sets pf Bcx -f/u cx -Monitor CBC/BMP, temperatures -aspiration precautions Thank you for this consultation. Will continue to follow along with you. Discussed with RN. Subjective Allergies: Coded Allergies: NO KNOWN DRUG ALLERGIES (Unverified Allergy, Unknown, 07/11/15) Objective Vital Signs Last 24 Hour Vital Signs Date Time Temp Pulse Resp B/P (MAP) Pulse Ox O2 Delivery O2 Flow Rate FiO2 08/12/17 11:50 130/76 08/12/17 09:02 105 130/76 08/12/17 08:00 97.5 105 19 130/76 95 Room Air 97.5 08/12/17 05:55 131/74 08/12/17 04:00 98.2 79 18 131/74 98 98.2 08/12/17 01:08 137/79 08/12/17 00:57 98.7 85 20 137/79 97 Nasal Cannula 2.0 98.7 08/11/17 22:31 84 130/55 08/11/17 20:00 98.1 84 22 130/55 95 98.1 08/11/17 19:07 132/56 08/11/17 16:26 98.2 90 18 132/56 97 Nasal Cannula 2.0 98.2 08/11/17 15:06 98.2 08/11/17 15:06 98.4 Height (Feet): 5 Height (Inches): 0.00 Weight (Pounds): 179 Objective General Appearance: WD/WN, cachetic Lines, tubes and drains: peripheral HEENT: normocephalic, atraumatic Neck: non-tender, supple Respiratory/Chest: rhonchi - bilaterally, rhonchi - right Cardiovascular/Chest: normal peripheral pulses, normal rate Genitourinary/Rectal: normal genital exam, heme negative stool Extremities: non-tender Neurologic: service observer II-XII grossly normal Microbiology Date/Time Source Procedure Growth Status 08/11/17 02:50 Blood Blood Culture - Preliminary NO GROWTH AFTER 24 HOURS Resulted 08/11/17 02:40 Blood Blood Culture - Preliminary Resulted 08/11/17 17:35 Nasopharynx Influenza Types A,B Antigen (ENA) - Final Complete 08/11/17 04:00 Urine,Clean Catch Urine Culture - Preliminary Gram Negative Bacillus 1 Resulted Laboratory Tests Test 08/12/17 07:50 White Blood Count 7.9 K/UL (4.8-10.8) Red Blood Count 3.75 M/UL (4.20-5.40) L Hemoglobin 12.5 G/DL (12.0-16.0) Hematocrit 35.4 % (37.0-47.0) L Mean Corpuscular Volume 94 FL (80-99) Mean Corpuscular Hemoglobin 33.2 PG (27.0-31.0) H Mean Corpuscular Hemoglobin Concent 35.2 G/DL (32.0-36.0) Red Cell Distribution Width 13.1 % (11.6-14.8) Platelet Count 162 K/UL (150-450) Mean Platelet Volume 7.6 FL (6.5-10.1) Neutrophils (%) (Auto) 66.5 % (45.0-75.0) Lymphocytes (%) (Auto) 20.7 % (20.0-45.0) Monocytes (%) (Auto) 9.3 % (1.0-10.0) Eosinophils (%) (Auto) 2.0 % (0.0-3.0) Basophils (%) (Auto) 1.5 % (0.0-2.0) Sodium Level 133 MMOL/L (136-145) L Potassium Level 4.1 MMOL/L (3.5-5.1) Chloride Level 97 MMOL/L (98-107) L Carbon Dioxide Level 33 MMOL/L (21-32) H Anion Gap 4 mmol/L (5-15) L Blood Urea Nitrogen 5 mg/dL (7-18) L Creatinine 0.6 MG/DL (0.55-1.30) Estimat Glomerular Filtration Rate mL/min (>60) Glucose Level 92 MG/DL (74-106) Calcium Level 8.5 MG/DL (8.5-10.1) Phosphorus Level 3.6 MG/DL (2.5-4.9) Albumin 2.5 G/DL (3.4-5.0) L Current Medications Medications (Trade) Dose Ordered Sig/Ibrahima Route PRN Reason Start Time Stop Time Status Last Admin Dose Admin Acetaminophen (Tylenol) 650 mg Q4H PRN ORAL FEVER>100.5 08/11/17 09:30 09/10/17 09:29 Acetaminophen/ Hydrocodone Bitart ([place] 5/325) 1 tab Q6H PRN ORAL Moderate Pain (Pain Scale 4-6) 08/11/17 09:30 08/18/17 09:29 08/12/17 05:56 Albuterol/ Ipratropium (Albuterol/ Ipratropium) 3 ml Q4H PRN HHN Shortness of Breath 08/11/17 10:00 08/16/17 09:59 Allopurinol (Zyloprim) 100 mg DAILY ORAL 08/12/17 10:00 09/11/17 09:59 08/12/17 09:01 Bupropion HCl (Wellbutrin) 100 mg EVERY 12 HOURS ORAL 08/11/17 21:00 09/10/17 20:59 08/12/17 09:00 Ceftriaxone Sodium 2 gm/ Sodium Chloride 55 ml @ 110 mls/hr Q24H IVPB 08/12/17 09:00 08/19/17 08:59 08/12/17 09:03 Dextrose (Dextrose 50%) STAT PRN IV Hypoglycemia 08/11/17 09:30 09/10/17 09:29 Divalproex Sodium (Depakote) 250 mg EVERY 12 HOURS ORAL 08/11/17 21:00 09/10/17 20:59 08/12/17 09:01 Furosemide (Lasix) 40 mg DAILY ORAL 08/12/17 09:00 09/11/17 08:59 08/12/17 09:02 Heparin Sodium (Porcine) (Heparin 5000 units/ml) 5,000 units EVERY 12 HOURS SUBQ 08/11/17 21:00 09/10/17 20:59 Hydralazine HCl (Apresoline) 25 mg Q6HR ORAL 08/11/17 12:00 09/10/17 11:59 08/12/17 11:50 Lorazepam (Ativan 2mg/ml 1ml) 2 mg Q2H PRN IV For Anxiety 08/11/17 09:30 08/18/17 09:29 Metoprolol Tartrate (Lopressor) 25 mg Q12HR ORAL 08/11/17 21:00 09/10/17 20:59 08/12/17 09:02 Mirtazapine (Remeron) 15 mg BEDTIME ORAL 08/11/17 21:00 09/10/17 20:59 08/11/17 22:31 Morphine Sulfate (Morphine Sulfate) 4 mg Q4H PRN IVP Severe Pain (Pain Scale 7-10) 08/11/17 09:30 08/18/17 09:29 Ondansetron HCl (Zofran) 4 mg Q6H PRN IVP Nausea & Vomiting 08/11/17 09:30 09/10/17 09:29 Oseltamivir Phosphate (Tamiflu) 75 mg TWICE A DAY ORAL 08/11/17 18:00 08/16/17 09:01 08/12/17 09:02 Polyethylene Glycol (Miralax) 17 gm DAILYPRN PRN ORAL Constipation 08/11/17 09:30 09/10/17 09:29 Promethazine HCl/ Codeine (Phenergan with Codeine) 5 ml Q4H PRN ORAL For Cough 08/11/17 14:00 09/10/17 13:59 08/12/17 11:01 Risperidone (RisperDAL) 0.25 mg BID ORAL 08/11/17 18:00 09/10/17 17:59 08/12/17 09:01 Rivaroxaban (Xarelto) 10 mg DAILY ORAL 08/12/17 09:00 09/11/17 08:59 08/12/17 09:02 Solifenacin (Vesicare) 10 mg DAILY ORAL 08/12/17 11:00 09/11/17 10:59 08/12/17 11:01 Danica Nayak M.D. Aug 12, 2017 12:39
[2017-08-12] MEDS: Vancomycin 1gm in D5W 275ml IVPB SCH (15:25)
[2017-08-12 16:00] VITALS: BP_SYST 104; BP_DIAS 5; BP_DIAS 53
[2017-08-12 20:00] VITALS: BP 136/102
--- NOTE | 2017-08-12 21:14 | Pulmonology Progress Note ---
Assessment/Plan Problems: (1) Hospital-acquired pneumonia (2) COPD (chronic obstructive pulmonary disease) (3) Failure to thrive (4) Seizure disorder (5) Wheelchair bound (6) Bipolar depression (7) Cerebral vascular disease Assessment/Plan continue abx respiratory treatment titrate fio2 to sat of 92% psych evaluation Subjective ROS Limited/Unobtainable: No Allergies: Coded Allergies: NO KNOWN DRUG ALLERGIES (Unverified Allergy, Unknown, 07/11/15) Objective Last 24 Hour Vital Signs Date Time Temp Pulse Resp B/P (MAP) Pulse Ox O2 Delivery O2 Flow Rate FiO2 08/12/17 20:48 71 136/102 08/12/17 20:00 97.1 71 20 136/102 99 97.1 08/12/17 17:00 104/53 08/12/17 16:00 97.2 77 21 104/53 94 Nasal Cannula 2.0 97.2 08/12/17 12:00 97.9 78 18 116/56 94 Room Air 97.9 08/12/17 11:50 130/76 08/12/17 09:02 105 130/76 08/12/17 08:00 97.5 105 19 130/76 95 Room Air 97.5 08/12/17 05:55 131/74 08/12/17 04:00 98.2 79 18 131/74 98 98.2 08/12/17 01:08 137/79 08/12/17 00:57 98.7 85 20 137/79 97 Nasal Cannula 2.0 98.7 08/11/17 22:31 84 130/55 Intake and Output 08/11/17 08/12/17 19:00 07:00 Intake Total 735.0 ml 450 ml Balance 735.0 ml 450 ml Intake Oral 360 ml 450 ml IV Total 375.0 ml # Voids 4 3 Objective General Appearance: cachectic HEENT: normocephalic, atraumatic, anicteric Respiratory/Chest: chest wall non-tender, rhonchi L>R Breasts: no masses Cardiovascular: normal peripheral pulses Abdomen: normal bowel sounds Genitourinary: normal external genitalia Microbiology Date/Time Source Procedure Growth Status 08/11/17 02:50 Blood Blood Culture - Preliminary NO GROWTH AFTER 24 HOURS Resulted 08/11/17 02:40 Blood Blood Culture - Preliminary Resulted 08/11/17 17:35 Nasopharynx Influenza Types A,B Antigen (ENA) - Final Complete 08/11/17 04:00 Urine,Clean Catch Urine Culture - Preliminary Gram Negative Bacillus 1 Resulted Laboratory Tests 08/12/17 07:50: White Blood Count 7.9, Red Blood Count 3.75L, Hemoglobin 12.5, Hematocrit 35.4L , Mean Corpuscular Volume 94, Mean Corpuscular Hemoglobin 33.2H, Mean Corpuscular Hemoglobin Concent 35.2, Red Cell Distribution Width 13.1, Platelet Count 162, Mean Platelet Volume 7.6, Neutrophils (%) (Auto) 66.5, Lymphocytes (% ) (Auto) 20.7, Monocytes (%) (Auto) 9.3, Eosinophils (%) (Auto) 2.0, Basophils ( %) (Auto) 1.5, Sodium Level 133L, Potassium Level 4.1, Chloride Level 97L, Carbon Dioxide Level 33H, Anion Gap 4L, Blood Urea Nitrogen 5L, Creatinine 0.6, Estimat Glomerular Filtration Rate , Glucose Level 92, Calcium Level 8.5, Phosphorus Level 3.6, Albumin 2.5L Current Medications Medications (Trade) Dose Ordered Sig/Ibrahima Route PRN Reason Start Time Stop Time Status Last Admin Dose Admin Acetaminophen (Tylenol) 650 mg Q4H PRN ORAL FEVER>100.5 08/11/17 09:30 09/10/17 09:29 Acetaminophen/ Hydrocodone Bitart ([place] 5/325) 1 tab Q6H PRN ORAL Moderate Pain (Pain Scale 4-6) 08/11/17 09:30 08/18/17 09:29 08/12/17 20:59 Albuterol/ Ipratropium (Albuterol/ Ipratropium) 3 ml Q4H PRN HHN Shortness of Breath 08/11/17 10:00 08/16/17 09:59 Allopurinol (Zyloprim) 100 mg DAILY ORAL 08/12/17 10:00 09/11/17 09:59 08/12/17 09:01 Bupropion HCl (Wellbutrin) 100 mg EVERY 12 HOURS ORAL 08/11/17 21:00 09/10/17 20:59 08/12/17 20:47 Ceftriaxone Sodium 2 gm/ Sodium Chloride 55 ml @ 110 mls/hr Q24H IVPB 08/12/17 09:00 08/19/17 08:59 08/12/17 09:03 Dextrose (Dextrose 50%) STAT PRN IV Hypoglycemia 08/11/17 09:30 09/10/17 09:29 Divalproex Sodium (Depakote) 250 mg EVERY 12 HOURS ORAL 08/11/17 21:00 09/10/17 20:59 08/12/17 20:47 Furosemide (Lasix) 40 mg DAILY ORAL 08/12/17 09:00 09/11/17 08:59 08/12/17 09:02 Heparin Sodium (Porcine) (Heparin 5000 units/ml) 5,000 units EVERY 12 HOURS SUBQ 08/11/17 21:00 09/10/17 20:59 Hydralazine HCl (Apresoline) 25 mg Q6HR ORAL 08/11/17 12:00 09/10/17 11:59 08/12/17 11:50 Lorazepam (Ativan 2mg/ml 1ml) 2 mg Q2H PRN IV For Anxiety 08/11/17 09:30 08/18/17 09:29 Metoprolol Tartrate (Lopressor) 25 mg Q12HR ORAL 08/11/17 21:00 09/10/17 20:59 08/12/17 20:48 Mirtazapine (Remeron) 15 mg BEDTIME ORAL 08/11/17 21:00 09/10/17 20:59 08/12/17 20:47 Morphine Sulfate (Morphine Sulfate) 4 mg Q4H PRN IVP Severe Pain (Pain Scale 7-10) 08/11/17 09:30 08/18/17 09:29 Ondansetron HCl (Zofran) 4 mg Q6H PRN IVP Nausea & Vomiting 08/11/17 09:30 09/10/17 09:29 Oseltamivir Phosphate (Tamiflu) 75 mg TWICE A DAY ORAL 08/11/17 18:00 08/16/17 09:01 08/12/17 17:11 Polyethylene Glycol (Miralax) 17 gm DAILYPRN PRN ORAL Constipation 08/11/17 09:30 09/10/17 09:29 Promethazine HCl/ Codeine (Phenergan with Codeine) 5 ml Q4H PRN ORAL For Cough 08/11/17 14:00 09/10/17 13:59 08/12/17 17:11 Risperidone (RisperDAL) 0.25 mg BID ORAL 08/11/17 18:00 09/10/17 17:59 08/12/17 17:11 Rivaroxaban (Xarelto) 10 mg DAILY ORAL 08/12/17 09:00 09/11/17 08:59 08/12/17 09:02 Solifenacin (Vesicare) 10 mg DAILY ORAL 08/12/17 11:00 09/11/17 10:59 08/12/17 11:01 Vancomycin HCl (Vanco rx to dose) 1 ea DAILY PRN MISC Per rx protocol 08/12/17 12:45 09/11/17 12:44 Vancomycin HCl 1 gm/Dextrose 275 ml @ 183.708 mls/hr Q24H IVPB 08/12/17 14:30 08/17/17 14:29 08/12/17 15:25 Mendel Sierra MD Aug 12, 2017 21:14
[2017-08-13] VITALS: BP 142/63
[2017-08-13] MEDS: HydrALAZINE 25mg tab ORAL SCH ×4 (00:50→18:51)
[2017-08-13] MEDS: Promethazine/Codeine 5ml UD ORAL PRN ×2 (03:40→22:24)
[2017-08-13] MEDS: Norco 5mg/325mg tab ORAL PRN (03:40)
[2017-08-13 04:00] VITALS: BP 112/49
[2017-08-13 08:00] VITALS: BP 128/69
[2017-08-13] MEDS: Heparin 5000 units/ml inj SUBQ SCH ×2 (09:00→21:22)
[2017-08-13] MEDS: Furosemide 40mg tab ORAL SCH (09:20)
[2017-08-13] MEDS: Metoprolol 25mg tab ORAL SCH ×2 (09:21→21:19)
[2017-08-13] MEDS: Xarelto 10mg tab ORAL SCH (09:21)
[2017-08-13] MEDS: Allopurinol 100mg Tab ORAL SCH (09:21)
[2017-08-13] MEDS: cefTRIAXone 2 GM in NS 55 ML IVPB SCH (09:21)
[2017-08-13] MEDS: Oseltamivir 75mg cap ORAL SCH ×2 (09:30→18:51)
--- NOTE | 2017-08-13 10:08 | Diagnostic Imaging Report ---
Indication: Shortness of breath Technique: One view of the chest Comparison: 08/11/2017 Findings: There is suggestion of decreased pleural fluid on the left. There is persistent left lung volume loss with leftward shift of the mediastinum. Lungs appear overall less congested, but there is persistent right infrahilar disease. Heart is mildly enlarged. Monitoring device overlies the inferior left hemithorax. Degenerative changes of both shoulders again noted Impression: Suggestion of slightly improved interstitial congestion, with persistent right infrahilar infiltrate or edema Apparent decreased left pleural fluid Persistent left lung volume loss with leftward shift of the mediastinum
--- NOTE | 2017-08-13 11:22 | Wound Care Consultation ---
Wound Assessment Wound Assessment #1: Wound Number: 1 Wound Present on Admission: Yes New Wound: No Status Change of Wound: No Wound Location Body Site Modif: left, right Wound Location Body Site: breast fold - neck Wound Type: rash Otto Test: Does not Otto Rashes: Mohini/Yeast Wound Drainage Amount: None Wound Drainage Odor: None/Absent Tissue Surrounding Wound: Intact Wound General Appearance: Reddened Wound Assessment #2: Wound Number: 2 Wound Present on Admission: Yes New Wound: No Status Change of Wound: No Wound Location Body Site: perineal area Wound Type: erosion Otto Test: Does not Otto Rashes: Mohini w/erosion Percent of Wound [place]/Red: 100 Wound Drainage Amount: None Wound Drainage Odor: None/Absent Tissue Surrounding Wound: Intact Wound General Appearance: Reddened Wound Assessment #3: Wound Number: 3 Wound Present on Admission: Yes New Wound: No Status Change of Wound: No Wound Location Body Site Modif: right Wound Location Body Site: heel Wound Type: pressure ulcer Otto Test: Does not Otto Pressure Ulcer Stage: I Percent of Wound [place]/Red: 100 Wound Drainage Amount: None Wound Drainage Odor: None/Absent Tissue Surrounding Wound: Intact Wound General Appearance: Reddened Wound Assessment #4: Wound Number: 4 Wound Present on Admission: Yes New Wound: No Status Change of Wound: No Wound Location Body Site Modif: left, anterior Wound Location Body Site: toe - 2nd Wound Type: pressure ulcer Otto Test: Does not Otto Pressure Ulcer Stage: Unstageable Wound Thickness: Full Thickness Wound Length: 0.8 Wound Width: 0.8 Wound Depth: utd Percent of Wound Bed Yellow/Wh: 100 Wound Drainage Description: Serosanguineous Wound Drainage Amount: Moderate Wound Drainage Odor: None/Absent Tissue Surrounding Wound: Indurated Wound General Appearance: Reddened - yellow, Draining Wound Comment #1 Mohini rash on perineal area, bilateral breast fold and neck #2 Right heel stage I pressure ulcer #3 Left anterior 2nd toe unstageable pressure ulcer Recommendation -Local wound care per protocol -Offload both heels -Heel protector on both heels -Optimize nutrition -Turn and reposition -Keep clean and dry -Low air loss mattress -Assess and f/u accordingly for any changes LYN US RN Aug 13, 2017 11:22
[2017-08-13 12:00] VITALS: BP 129/71
[2017-08-13] MEDS ORDERED: 1/2 NS 1000ml IV ONE (14:22)
[2017-08-13] MEDS ORDERED: Tubing IV Secondary IV ONE (14:22)
[2017-08-13] MEDS: Vancomycin 1gm in D5W 275ml IVPB SCH (15:25)
[2017-08-13 16:00] VITALS: BP 133/57
--- NOTE | 2017-08-13 19:03 | Pulmonology Progress Note ---
Assessment/Plan Problems: (1) Hospital-acquired pneumonia (2) COPD (chronic obstructive pulmonary disease) (3) Failure to thrive (4) Seizure disorder (5) Wheelchair bound (6) Bipolar depression (7) Cerebral vascular disease Assessment/Plan continue abx respiratory treatment titrate fio2 to sat of 92% psych evaluation check blood cultures improving clinically check labs in am Subjective ROS Limited/Unobtainable: No Constitutional: Reports: no symptoms HEENT: Repors: no symptoms Respiratory: Reports: no symptoms Allergies: Coded Allergies: NO KNOWN DRUG ALLERGIES (Unverified Allergy, Unknown, 07/11/15) Objective Last 24 Hour Vital Signs Date Time Temp Pulse Resp B/P (MAP) Pulse Ox O2 Delivery O2 Flow Rate FiO2 08/13/17 18:51 133/57 08/13/17 16:00 98.2 67 21 133/57 98 Nasal Cannula 2.0 98.2 08/13/17 13:32 129/57 08/13/17 12:00 97.5 81 18 129/71 100 Nasal Cannula 2.0 97.5 08/13/17 09:21 78 128/71 08/13/17 08:00 98.5 78 24 128/69 90 Nasal Cannula 2.0 98.5 08/13/17 05:14 112/49 08/13/17 04:00 97.0 74 20 112/49 90 97.0 08/13/17 00:50 142/63 08/13/17 00:00 97.4 61 20 142/63 99 97.4 08/12/17 20:48 71 136/102 08/12/17 20:00 97.1 71 20 136/102 99 97.1 Intake and Output 08/12/17 08/13/17 19:00 07:00 Intake Total 240 ml Balance 240 ml Intake Oral 240 ml # Voids 4 2 Objective General Appearance: cachectic HEENT: normocephalic, atraumatic, anicteric Respiratory/Chest: chest wall non-tender, rhonchi L>R Breasts: no masses Cardiovascular: normal peripheral pulses Abdomen: normal bowel sounds Genitourinary: normal external genitalia Microbiology Date/Time Source Procedure Growth Status 08/11/17 02:50 Blood Blood Culture - Preliminary NO GROWTH AFTER 48 HOURS Resulted 08/11/17 02:40 Blood Blood Culture - Preliminary Staphylococcus Sp Coag Neg Resulted 08/11/17 17:35 Nasopharynx Influenza Types A,B Antigen (ENA) - Final Complete 08/11/17 04:00 Urine,Clean Catch Urine Culture - Final Escherichia Coli Complete Current Medications Medications (Trade) Dose Ordered Sig/Ibrahima Route PRN Reason Start Time Stop Time Status Last Admin Dose Admin Acetaminophen (Tylenol) 650 mg Q4H PRN ORAL FEVER>100.5 08/11/17 09:30 09/10/17 09:29 Acetaminophen/ Hydrocodone Bitart ([place] 5/325) 1 tab Q6H PRN ORAL Moderate Pain (Pain Scale 4-6) 08/11/17 09:30 08/18/17 09:29 08/13/17 03:40 Albuterol/ Ipratropium (Albuterol/ Ipratropium) 3 ml Q4H PRN HHN Shortness of Breath 08/11/17 10:00 08/16/17 09:59 Allopurinol (Zyloprim) 100 mg DAILY ORAL 08/12/17 10:00 09/11/17 09:59 08/13/17 09:21 Bupropion HCl (Wellbutrin) 100 mg EVERY 12 HOURS ORAL 08/11/17 21:00 09/10/17 20:59 08/13/17 09:20 Ceftriaxone Sodium 2 gm/ Sodium Chloride 55 ml @ 110 mls/hr Q24H IVPB 08/12/17 09:00 08/19/17 08:59 08/13/17 09:21 Clotrimazole (Lotrimin) 1 applic EVERY 12 HOURS TOPIC 08/13/17 13:00 09/12/17 12:59 08/13/17 15:26 Dextrose (Dextrose 50%) STAT PRN IV Hypoglycemia 08/11/17 09:30 09/10/17 09:29 Divalproex Sodium (Depakote) 250 mg EVERY 12 HOURS ORAL 08/11/17 21:00 09/10/17 20:59 08/13/17 09:21 Furosemide (Lasix) 40 mg DAILY ORAL 08/12/17 09:00 09/11/17 08:59 08/13/17 09:20 Heparin Sodium (Porcine) (Heparin 5000 units/ml) 5,000 units EVERY 12 HOURS SUBQ 08/11/17 21:00 09/10/17 20:59 Hydralazine HCl (Apresoline) 25 mg Q6HR ORAL 08/11/17 12:00 09/10/17 11:59 08/13/17 18:51 Lorazepam (Ativan 2mg/ml 1ml) 2 mg Q2H PRN IV For Anxiety 08/11/17 09:30 08/18/17 09:29 Metoprolol Tartrate (Lopressor) 25 mg Q12HR ORAL 08/11/17 21:00 09/10/17 20:59 08/13/17 09:21 Mirtazapine (Remeron) 15 mg BEDTIME ORAL 08/11/17 21:00 09/10/17 20:59 08/12/17 20:47 Morphine Sulfate (Morphine Sulfate) 4 mg Q4H PRN IVP Severe Pain (Pain Scale 7-10) 08/11/17 09:30 08/18/17 09:29 Ondansetron HCl (Zofran) 4 mg Q6H PRN IVP Nausea & Vomiting 08/11/17 09:30 09/10/17 09:29 Oseltamivir Phosphate (Tamiflu) 75 mg TWICE A DAY ORAL 08/11/17 18:00 08/16/17 09:01 08/13/17 18:51 Polyethylene Glycol (Miralax) 17 gm DAILYPRN PRN ORAL Constipation 08/11/17 09:30 09/10/17 09:29 Promethazine HCl/ Codeine (Phenergan with Codeine) 5 ml Q4H PRN ORAL For Cough 08/11/17 14:00 09/10/17 13:59 08/13/17 03:40 Risperidone (RisperDAL) 0.25 mg BID ORAL 08/11/17 18:00 09/10/17 17:59 08/13/17 18:51 Rivaroxaban (Xarelto) 10 mg DAILY ORAL 08/12/17 09:00 09/11/17 08:59 08/13/17 09:21 Solifenacin (Vesicare) 10 mg DAILY ORAL 08/12/17 11:00 09/11/17 10:59 08/13/17 09:30 Vancomycin HCl (Vanco rx to dose) 1 ea DAILY PRN MISC Per rx protocol 08/12/17 12:45 09/11/17 12:44 Vancomycin HCl 1 gm/Dextrose 275 ml @ 183.708 mls/hr Q24H IVPB 08/12/17 14:30 08/17/17 14:29 08/13/17 15:25 Mendel Sierra MD Aug 13, 2017 19:03
[2017-08-13 20:00] VITALS: BP 127/64
--- NOTE | 2017-08-13 22:41 | General Progress Note ---
Assessment/Plan Assessment/Plan alcohol withdrawal anxiety mdd -cont remeron -cont ativan -cont risperdal Subjective Date patient seen: Aug 12, 2017 Neurologic/Psychiatric: Reports: anxiety, depressed, emotional problems Allergies: Coded Allergies: NO KNOWN DRUG ALLERGIES (Unverified Allergy, Unknown, 07/11/15) Objective Last 24 Hour Vital Signs Date Time Temp Pulse Resp B/P (MAP) Pulse Ox O2 Delivery O2 Flow Rate FiO2 08/13/17 21:19 110 127/64 08/13/17 20:00 99.1 110 20 127/64 95 99.1 08/13/17 18:51 133/57 08/13/17 16:00 98.2 67 21 133/57 98 Nasal Cannula 2.0 98.2 08/13/17 13:32 129/57 08/13/17 12:00 97.5 81 18 129/71 100 Nasal Cannula 2.0 97.5 08/13/17 09:21 78 128/71 08/13/17 08:00 98.5 78 24 128/69 90 Nasal Cannula 2.0 98.5 08/13/17 05:14 112/49 08/13/17 04:00 97.0 74 20 112/49 90 97.0 08/13/17 00:50 142/63 08/13/17 00:00 97.4 61 20 142/63 99 97.4 Intake and Output 08/12/17 08/13/17 19:00 07:00 Intake Total 240 ml Balance 240 ml Intake Oral 240 ml # Voids 4 2 Height (Feet): 5 Height (Inches): 0.00 Weight (Pounds): 179 Luiz Morrison M.D. Aug 13, 2017 22:40
--- NOTE | 2017-08-13 22:41 | General Progress Note ---
Assessment/Plan Status: progressing Assessment/Plan alcohol withdrawal anxiety mdd -cont remeron -cont ativan -cont risperdal Subjective Date patient seen: Aug 13, 2017 Neurologic/Psychiatric: Reports: anxiety, depressed Allergies: Coded Allergies: NO KNOWN DRUG ALLERGIES (Unverified Allergy, Unknown, 07/11/15) Objective Last 24 Hour Vital Signs Date Time Temp Pulse Resp B/P (MAP) Pulse Ox O2 Delivery O2 Flow Rate FiO2 08/13/17 21:19 110 127/64 08/13/17 20:00 99.1 110 20 127/64 95 99.1 08/13/17 18:51 133/57 08/13/17 16:00 98.2 67 21 133/57 98 Nasal Cannula 2.0 98.2 08/13/17 13:32 129/57 08/13/17 12:00 97.5 81 18 129/71 100 Nasal Cannula 2.0 97.5 08/13/17 09:21 78 128/71 08/13/17 08:00 98.5 78 24 128/69 90 Nasal Cannula 2.0 98.5 08/13/17 05:14 112/49 08/13/17 04:00 97.0 74 20 112/49 90 97.0 08/13/17 00:50 142/63 08/13/17 00:00 97.4 61 20 142/63 99 97.4 Intake and Output 08/12/17 08/13/17 19:00 07:00 Intake Total 240 ml Balance 240 ml Intake Oral 240 ml # Voids 4 2 Height (Feet): 5 Height (Inches): 0.00 Weight (Pounds): 179 Luiz Morrison M.D. Aug 13, 2017 22:41
[2017-08-14] VITALS: BP 131/56
[2017-08-14] MEDS: HydrALAZINE 25mg tab ORAL SCH ×4 (00:21→17:22)
[2017-08-14 04:00] VITALS: BP 127/70
[2017-08-14 06:56] LABS: BASOPHILS % (AUTO) 1.2 % (0.0-2.0); EOSINOPHILS % (AUTO) 5.3 % (0.0-3.0); HEMATOCRIT 34.2 % (37.0-47.0); HEMOGLOBIN 11.9 G/DL (12.0-16.0); LYMPHOCYTES % (AUTO) 15.5 % (20.0-45.0); MEAN CORPUSCULAR VOLUME 95 FL (80-99); MONOCYTES % (AUTO) 8.5 % (1.0-10.0); NEUTROPHILS % (AUTO) 69.5 % (45.0-75.0); PLATELET COUNT 165 K/UL (150-450); RED BLOOD COUNT 3.62 M/UL (4.20-5.40); RED CELL DISTRIBUTION WIDTH 13.1 % (11.6-14.8); WHITE BLOOD COUNT 9.1 K/UL (4.8-10.8)
[2017-08-14 07:18] LABS: ALANINE AMINOTRANSFERASE 13 U/L (12-78); ALBUMIN 2.3 G/DL (3.4-5.0); ALBUMIN/GLOBULIN RATIO 0.7 (1.0-2.7); ALKALINE PHOSPHATASE 43 U/L (46-116); ANION GAP 3 mmol/L (5-15); ASPARTATE AMINO TRANSFERASE 10 U/L (15-37); BILIRUBIN,TOTAL 0.2 MG/DL (0.2-1.0); BLOOD UREA NITROGEN 8 mg/dL (7-18); CARBON DIOXIDE 37 MMOL/L (21-32); CHLORIDE 95 MMOL/L (98-107); CREATININE 0.5 MG/DL (0.55-1.30); PHOSPHORUS 3.7 MG/DL (2.5-4.9); POTASSIUM 3.6 MMOL/L (3.5-5.1); SODIUM 135 MMOL/L (136-145)
[2017-08-14 08:00] VITALS: BP 127/53
[2017-08-14] MEDS: Heparin 5000 units/ml inj SUBQ SCH ×2 (09:00→20:45)
[2017-08-14] MEDS: Allopurinol 100mg Tab ORAL SCH (09:00)
[2017-08-14] MEDS: Furosemide 40mg tab ORAL SCH (09:01)
[2017-08-14] MEDS: Oseltamivir 75mg cap ORAL SCH ×2 (09:01→17:22)
[2017-08-14] MEDS: Metoprolol 25mg tab ORAL SCH ×2 (09:02→20:43)
[2017-08-14] MEDS: Xarelto 10mg tab ORAL SCH (09:02)
[2017-08-14] MEDS: cefTRIAXone 2 GM in NS 55 ML IVPB SCH (09:03)
[2017-08-14 11:42] VITALS: BP 117/57
[2017-08-14] MEDS: Norco 5mg/325mg tab ORAL PRN (12:04)
--- NOTE | 2017-08-14 15:18 | Pulmonology Progress Note ---
Assessment/Plan Problems: (1) Hospital-acquired pneumonia (2) COPD (chronic obstructive pulmonary disease) (3) Failure to thrive (4) Seizure disorder (5) Wheelchair bound (6) Bipolar depression (7) Cerebral vascular disease Assessment/Plan dc planning soon getting better continue abx respiratory treatment titrate fio2 to sat of 92% psych evaluation check blood cultures improving clinically check labs in am Subjective ROS Limited/Unobtainable: No Constitutional: Reports: no symptoms HEENT: Repors: no symptoms Allergies: Coded Allergies: NO KNOWN DRUG ALLERGIES (Unverified Allergy, Unknown, 07/11/15) Objective Last 24 Hour Vital Signs Date Time Temp Pulse Resp B/P (MAP) Pulse Ox O2 Delivery O2 Flow Rate FiO2 08/14/17 12:04 117/57 08/14/17 11:42 97.6 70 20 117/57 96 Nasal Cannula 2.0 97.6 08/14/17 09:02 71 127/53 08/14/17 08:00 97.8 71 20 127/53 97 Nasal Cannula 2.0 97.8 08/14/17 05:24 127/70 08/14/17 04:00 97.3 107 20 127/70 100 Nasal Cannula 97.3 08/14/17 00:21 131/56 08/14/17 00:00 97.9 64 20 131/56 99 97.9 08/13/17 21:19 110 127/64 08/13/17 20:00 99.1 110 20 127/64 95 99.1 08/13/17 18:51 133/57 08/13/17 16:00 98.2 67 21 133/57 98 Nasal Cannula 2.0 98.2 Intake and Output 08/13/17 08/14/17 19:00 07:00 Intake Total 840 ml 240 ml Balance 840 ml 240 ml Intake Oral 840 ml 240 ml # Voids 4 3 Objective General Appearance: cachectic HEENT: normocephalic, atraumatic, anicteric Respiratory/Chest: chest wall non-tender, rhonchi L>R Breasts: no masses Cardiovascular: normal peripheral pulses Abdomen: normal bowel sounds Genitourinary: normal external genitalia Microbiology Date/Time Source Procedure Growth Status 08/12/17 18:05 Blood Blood Culture - Preliminary Resulted 08/12/17 17:35 Blood Blood Culture - Preliminary Resulted 08/11/17 17:35 Nasopharynx Influenza Types A,B Antigen (ENA) - Final Complete Laboratory Tests 08/14/17 05:10: White Blood Count 9.1, Red Blood Count 3.62L, Hemoglobin 11.9L, Hematocrit 34.2L , Mean Corpuscular Volume 95, Mean Corpuscular Hemoglobin 33.0H, Mean Corpuscular Hemoglobin Concent 34.9, Red Cell Distribution Width 13.1, Platelet Count 165, Mean Platelet Volume 6.8, Neutrophils (%) (Auto) 69.5, Lymphocytes (% ) (Auto) 15.5L, Monocytes (%) (Auto) 8.5, Eosinophils (%) (Auto) 5.3H, Basophils (%) (Auto) 1.2, Erythrocyte Sedimentation Rate 10, Sodium Level 135L, Potassium Level 3.6, Chloride Level 95L, Carbon Dioxide Level 37H, Anion Gap 3L , Blood Urea Nitrogen 8, Creatinine 0.5L, Estimat Glomerular Filtration Rate , Glucose Level 85, Calcium Level 8.0L, Phosphorus Level 3.7, Magnesium Level 1.5L , Total Bilirubin 0.2, Aspartate Amino Transf (AST/SGOT) 10L, Alanine Aminotransferase (ALT/SGPT) 13, Alkaline Phosphatase 43L, Total Protein 5.5L, Albumin 2.3L, Globulin 3.2, Albumin/Globulin Ratio 0.7L 08/14/17 14:00: Vancomycin Level Trough 8.3 Current Medications Medications (Trade) Dose Ordered Sig/Ibrahima Route PRN Reason Start Time Stop Time Status Last Admin Dose Admin Acetaminophen (Tylenol) 650 mg Q4H PRN ORAL FEVER>100.5 08/11/17 09:30 09/10/17 09:29 Acetaminophen/ Hydrocodone Bitart ([place] 5/325) 1 tab Q6H PRN ORAL Moderate Pain (Pain Scale 4-6) 08/11/17 09:30 08/18/17 09:29 08/14/17 12:04 Albuterol/ Ipratropium (Albuterol/ Ipratropium) 3 ml Q4H PRN HHN Shortness of Breath 08/11/17 10:00 08/16/17 09:59 Allopurinol (Zyloprim) 100 mg DAILY ORAL 08/12/17 10:00 09/11/17 09:59 08/14/17 09:00 Bupropion HCl (Wellbutrin) 100 mg EVERY 12 HOURS ORAL 08/11/17 21:00 09/10/17 20:59 08/14/17 09:01 Ceftriaxone Sodium 2 gm/ Sodium Chloride 55 ml @ 110 mls/hr Q24H IVPB 08/12/17 09:00 08/19/17 08:59 08/14/17 09:03 Clotrimazole (Lotrimin) 1 applic EVERY 12 HOURS TOPIC 08/13/17 13:00 09/12/17 12:59 08/14/17 09:09 Dextrose (Dextrose 50%) STAT PRN IV Hypoglycemia 08/11/17 09:30 09/10/17 09:29 Divalproex Sodium (Depakote) 250 mg EVERY 12 HOURS ORAL 08/11/17 21:00 09/10/17 20:59 08/14/17 09:08 Furosemide (Lasix) 40 mg DAILY ORAL 08/12/17 09:00 09/11/17 08:59 08/14/17 09:01 Heparin Sodium (Porcine) (Heparin 5000 units/ml) 5,000 units EVERY 12 HOURS SUBQ 08/11/17 21:00 09/10/17 20:59 08/13/17 21:22 Hydralazine HCl (Apresoline) 25 mg Q6HR ORAL 08/11/17 12:00 09/10/17 11:59 08/14/17 12:04 Lorazepam (Ativan 2mg/ml 1ml) 2 mg Q2H PRN IV For Anxiety 08/11/17 09:30 08/18/17 09:29 Metoprolol Tartrate (Lopressor) 25 mg Q12HR ORAL 08/11/17 21:00 09/10/17 20:59 08/14/17 09:02 Mirtazapine (Remeron) 15 mg BEDTIME ORAL 08/11/17 21:00 09/10/17 20:59 08/13/17 21:19 Morphine Sulfate (Morphine Sulfate) 4 mg Q4H PRN IVP Severe Pain (Pain Scale 7-10) 08/11/17 09:30 08/18/17 09:29 Ondansetron HCl (Zofran) 4 mg Q6H PRN IVP Nausea & Vomiting 3/12/18 09:30 09/10/17 09:29 Oseltamivir Phosphate (Tamiflu) 75 mg TWICE A DAY ORAL 08/11/17 18:00 08/16/17 09:01 08/14/17 09:01 Polyethylene Glycol (Miralax) 17 gm DAILYPRN PRN ORAL Constipation 08/11/17 09:30 09/10/17 09:29 Promethazine HCl/ Codeine (Phenergan with Codeine) 5 ml Q4H PRN ORAL For Cough 08/11/17 14:00 09/10/17 13:59 08/13/17 22:24 Risperidone (RisperDAL) 0.25 mg BID ORAL 08/11/17 18:00 09/10/17 17:59 08/14/17 09:00 Rivaroxaban (Xarelto) 10 mg DAILY ORAL 08/12/17 09:00 09/11/17 08:59 08/14/17 09:02 Solifenacin (Vesicare) 10 mg DAILY ORAL 08/12/17 11:00 09/11/17 10:59 08/14/17 09:01 Vancomycin HCl (Vanco rx to dose) 1 ea DAILY PRN MISC Per rx protocol 08/12/17 12:45 09/11/17 12:44 Vancomycin HCl 1 gm/Dextrose 275 ml @ 183.708 mls/hr Q24H IVPB 08/12/17 14:30 08/17/17 14:29 08/13/17 15:25 Mendel Sierra MD Aug 14, 2017 15:18
--- NOTE | 2017-08-14 15:32 | Diagnostic Imaging Report ---
Indications: Dysphagia Technique: Patient ingested multiple substances under the supervision of speech pathology. Video fluoroscopic recording performed. Total fluoroscopy time 138.7 seconds. Total dose area product 0.19099 mGycm2 Comparison: none Findings: Equivocal trace penetration of thin and nectar thick liquid barium. No significant delayed pooling. There is some early pooling. No aspiration or penetration of honey thick liquid barium or barium puree Impression: Equivocal trace penetration of nectar thick and thin liquid barium. No evidence of aspiration Please refer to speech pathology report for more detailed analysis
[2017-08-14] MEDS: Vancomycin 1gm in D5W 275ml IVPB SCH (15:33)
[2017-08-14 16:00] VITALS: BP 132/52
--- NOTE | 2017-08-14 17:14 | Infectious Diseases Prog Note ---
Assessment/Plan Assessment/Plan Assessment: Persistent Gram positive bacteremia- r/o endocarditis/endovascular source. No central lines or PPM present. -bcx 08/11 1/4 CoNS; 08/12 2/4 GPC clusters Cough/fever- suspect influenza despite neg screen test; possible PNA vs pulmonary congestion -no fever here so far -CXR: Left pleural effusion, new since 09/04/2016 Mild interstitial congestion - no leukocytosis Pyuria/assymptomatic bacteriuria- no UTI symptoms -ucx >100K E.coli (S ceftraxone) HTN COPD long QT syndrome Aflutter CAD s/p stent ETOH abuse s/p b/l hip replacement CVA seizure disorder [facility] resident Plan: -Continue cefriaxone abx d#08/04-7 for possible pNA -Continue empiric Tamiflu #08/04 -08/11 SP IV Vancomycin #1, Cefepime #1, Levaquin x1 -Continue IV Vancomcyin #3 for persistent bacteremia; duration to follow -2 sets of Bcx -2d echo to eval for endocarditis, may need JIMY -f/u cx -Monitor CBC/BMP, temperatures -aspiration precautions -not ready for discharge yet Thank you for this consultation. Will continue to follow along with you. Discussed with RN. Subjective Allergies: Coded Allergies: NO KNOWN DRUG ALLERGIES (Unverified Allergy, Unknown, 07/11/15) Subjective afebrile no leukocytosis still bacteremic Objective Vital Signs Last 24 Hour Vital Signs Date Time Temp Pulse Resp B/P (MAP) Pulse Ox O2 Delivery O2 Flow Rate FiO2 08/14/17 12:04 117/57 08/14/17 11:42 97.6 70 20 117/57 96 Nasal Cannula 2.0 97.6 08/14/17 09:02 71 127/53 08/14/17 08:00 97.8 71 20 127/53 97 Nasal Cannula 2.0 97.8 08/14/17 05:24 127/70 08/14/17 04:00 97.3 107 20 127/70 100 Nasal Cannula 97.3 08/14/17 00:21 131/56 08/14/17 00:00 97.9 64 20 131/56 99 97.9 08/13/17 21:19 110 127/64 08/13/17 20:00 99.1 110 20 127/64 95 99.1 08/13/17 18:51 133/57 Height (Feet): 5 Height (Inches): 0.00 Weight (Pounds): 179 Objective General Appearance: WD/WN, cachetic Lines, tubes and drains: peripheral HEENT: normocephalic, atraumatic Neck: non-tender, supple Respiratory/Chest: rhonchi - bilaterally, rhonchi - right Cardiovascular/Chest: normal peripheral pulses, normal rate Genitourinary/Rectal: normal genital exam, heme negative stool Extremities: non-tender Neurologic: hat cutter II-XII grossly normal Microbiology Date/Time Source Procedure Growth Status 08/12/17 18:05 Blood Blood Culture - Preliminary Resulted 08/12/17 17:35 Blood Blood Culture - Preliminary Resulted 08/11/17 17:35 Nasopharynx Influenza Types A,B Antigen (ENA) - Final Complete Laboratory Tests Test 08/14/17 05:10 08/14/17 14:00 White Blood Count 9.1 K/UL (4.8-10.8) Red Blood Count 3.62 M/UL (4.20-5.40) L Hemoglobin 11.9 G/DL (12.0-16.0) L Hematocrit 34.2 % (37.0-47.0) L Mean Corpuscular Volume 95 FL (80-99) Mean Corpuscular Hemoglobin 33.0 PG (27.0-31.0) H Mean Corpuscular Hemoglobin Concent 34.9 G/DL (32.0-36.0) Red Cell Distribution Width 13.1 % (11.6-14.8) Platelet Count 165 K/UL (150-450) Mean Platelet Volume 6.8 FL (6.5-10.1) Neutrophils (%) (Auto) 69.5 % (45.0-75.0) Lymphocytes (%) (Auto) 15.5 % (20.0-45.0) L Monocytes (%) (Auto) 8.5 % (1.0-10.0) Eosinophils (%) (Auto) 5.3 % (0.0-3.0) H Basophils (%) (Auto) 1.2 % (0.0-2.0) Erythrocyte Sedimentation Rate 10 MM/HR (0-30) Sodium Level 135 MMOL/L (136-145) L Potassium Level 3.6 MMOL/L (3.5-5.1) Chloride Level 95 MMOL/L (98-107) L Carbon Dioxide Level 37 MMOL/L (21-32) H Anion Gap 3 mmol/L (5-15) L Blood Urea Nitrogen 8 mg/dL (7-18) Creatinine 0.5 MG/DL (0.55-1.30) L Estimat Glomerular Filtration Rate mL/min (>60) Glucose Level 85 MG/DL (74-106) Calcium Level 8.0 MG/DL (8.5-10.1) L Phosphorus Level 3.7 MG/DL (2.5-4.9) Magnesium Level 1.5 MG/DL (1.8-2.4) L Total Bilirubin 0.2 MG/DL (0.2-1.0) Aspartate Amino Transf (AST/SGOT) 10 U/L (15-37) L Alanine Aminotransferase (ALT/SGPT) 13 U/L (12-78) Alkaline Phosphatase 43 U/L (46-116) L Total Protein 5.5 G/DL (6.4-8.2) L Albumin 2.3 G/DL (3.4-5.0) L Globulin 3.2 g/dL Albumin/Globulin Ratio 0.7 (1.0-2.7) L Vancomycin Level Trough 8.3 ug/mL (5.0-12.0) Current Medications Medications (Trade) Dose Ordered Sig/Ibrahima Route PRN Reason Start Time Stop Time Status Last Admin Dose Admin Acetaminophen (Tylenol) 650 mg Q4H PRN ORAL FEVER>100.5 08/11/17 09:30 09/10/17 09:29 Acetaminophen/ Hydrocodone Bitart ([place] 5/325) 1 tab Q6H PRN ORAL Moderate Pain (Pain Scale 4-6) 08/11/17 09:30 08/18/17 09:29 08/14/17 12:04 Albuterol/ Ipratropium (Albuterol/ Ipratropium) 3 ml Q4H PRN HHN Shortness of Breath 08/11/17 10:00 08/16/17 09:59 Allopurinol (Zyloprim) 100 mg DAILY ORAL 08/12/17 10:00 09/11/17 09:59 08/14/17 09:00 Bupropion HCl (Wellbutrin) 100 mg EVERY 12 HOURS ORAL 08/11/17 21:00 09/10/17 20:59 08/14/17 09:01 Ceftriaxone Sodium 2 gm/ Sodium Chloride 55 ml @ 110 mls/hr Q24H IVPB 08/12/17 09:00 08/19/17 08:59 08/14/17 09:03 Clotrimazole (Lotrimin) 1 applic EVERY 12 HOURS TOPIC 08/13/17 13:00 09/12/17 12:59 08/14/17 09:09 Dextrose (Dextrose 50%) STAT PRN IV Hypoglycemia 08/11/17 09:30 09/10/17 09:29 Divalproex Sodium (Depakote) 250 mg EVERY 12 HOURS ORAL 08/11/17 21:00 09/10/17 20:59 08/14/17 09:08 Furosemide (Lasix) 40 mg DAILY ORAL 08/12/17 09:00 09/11/17 08:59 08/14/17 09:01 Heparin Sodium (Porcine) (Heparin 5000 units/ml) 5,000 units EVERY 12 HOURS SUBQ 08/11/17 21:00 09/10/17 20:59 08/13/17 21:22 Hydralazine HCl (Apresoline) 25 mg Q6HR ORAL 08/11/17 12:00 09/10/17 11:59 08/14/17 12:04 Lorazepam (Ativan 2mg/ml 1ml) 2 mg Q2H PRN IV For Anxiety 08/11/17 09:30 08/18/17 09:29 Metoprolol Tartrate (Lopressor) 25 mg Q12HR ORAL 08/11/17 21:00 09/10/17 20:59 08/14/17 09:02 Mirtazapine (Remeron) 15 mg BEDTIME ORAL 08/11/17 21:00 09/10/17 20:59 08/13/17 21:19 Morphine Sulfate (Morphine Sulfate) 4 mg Q4H PRN IVP Severe Pain (Pain Scale 7-10) 08/11/17 09:30 08/18/17 09:29 Ondansetron HCl (Zofran) 4 mg Q6H PRN IVP Nausea & Vomiting 08/11/17 09:30 09/10/17 09:29 Oseltamivir Phosphate (Tamiflu) 75 mg TWICE A DAY ORAL 08/11/17 18:00 08/16/17 09:01 08/14/17 09:01 Polyethylene Glycol (Miralax) 17 gm DAILYPRN PRN ORAL Constipation 08/11/17 09:30 09/10/17 09:29 Promethazine HCl/ Codeine (Phenergan with Codeine) 5 ml Q4H PRN ORAL For Cough 08/11/17 14:00 09/10/17 13:59 08/13/17 22:24 Risperidone (RisperDAL) 0.25 mg BID ORAL 08/11/17 18:00 09/10/17 17:59 08/14/17 09:00 Rivaroxaban (Xarelto) 10 mg DAILY ORAL 08/12/17 09:00 09/11/17 08:59 08/14/17 09:02 Solifenacin (Vesicare) 10 mg DAILY ORAL 08/12/17 11:00 09/11/17 10:59 08/14/17 09:01 Vancomycin HCl (Vanco rx to dose) 1 ea DAILY PRN MISC Per rx protocol 08/12/17 12:45 09/11/17 12:44 Vancomycin HCl 1 gm/Dextrose 275 ml @ 183.708 mls/hr Q24H IVPB 08/12/17 14:30 08/15/17 03:59 08/14/17 15:33 Vancomycin HCl/ Dextrose 250 ml @ 166.667 mls/hr Q24H IVPB 08/15/17 04:00 08/20/17 03:59 Danica Nayak M.D. Aug 14, 2017 17:14
[2017-08-14 20:00] VITALS: BP 146/64
--- NOTE | 2017-08-14 21:29 | Cardiology Report ---
APPROVED REPORT EKG Measurement Heart [id number] [id number] Sinus rhythm with 1st degree AV block with premature atrial complexes Anterior infarct, age undetermined Abnormal ECG
[2017-08-14] MEDS: Promethazine/Codeine 5ml UD ORAL PRN (21:30)
--- NOTE | 2017-08-14 22:48 | General Progress Note ---
Assessment/Plan Status: stable, progressing Assessment/Plan alcohol withdrawal anxiety mdd -cont remeron -cont ativan -cont risperdal Subjective Date patient seen: Aug 14, 2017 Neurologic/Psychiatric: Reports: anxiety, depressed, emotional problems Allergies: Coded Allergies: NO KNOWN DRUG ALLERGIES (Unverified Allergy, Unknown, 07/11/15) Objective Last 24 Hour Vital Signs Date Time Temp Pulse Resp B/P (MAP) Pulse Ox O2 Delivery O2 Flow Rate FiO2 08/14/17 20:43 76 146/64 08/14/17 20:00 98.2 76 18 146/64 93 98.2 08/14/17 17:22 130/62 08/14/17 16:00 97.5 62 20 132/52 94 Nasal Cannula 2.0 97.5 08/14/17 12:04 117/57 08/14/17 11:42 97.6 70 20 117/57 96 Nasal Cannula 2.0 97.6 08/14/17 09:02 71 127/53 08/14/17 08:00 97.8 71 20 127/53 97 Nasal Cannula 2.0 97.8 08/14/17 05:24 127/70 08/14/17 04:00 97.3 107 20 127/70 100 Nasal Cannula 97.3 08/14/17 00:21 131/56 08/14/17 00:00 97.9 64 20 131/56 99 97.9 Intake and Output 08/13/17 08/14/17 19:00 07:00 Intake Total 840 ml 240 ml Balance 840 ml 240 ml Intake Oral 840 ml 240 ml # Voids 4 3 Laboratory Tests 08/14/17 05:10: White Blood Count 9.1, Red Blood Count 3.62L, Hemoglobin 11.9L, Hematocrit 34.2L , Mean Corpuscular Volume 95, Mean Corpuscular Hemoglobin 33.0H, Mean Corpuscular Hemoglobin Concent 34.9, Red Cell Distribution Width 13.1, Platelet Count 165, Mean Platelet Volume 6.8, Neutrophils (%) (Auto) 69.5, Lymphocytes (% ) (Auto) 15.5L, Monocytes (%) (Auto) 8.5, Eosinophils (%) (Auto) 5.3H, Basophils (%) (Auto) 1.2, Erythrocyte Sedimentation Rate 10, Sodium Level 135L, Potassium Level 3.6, Chloride Level 95L, Carbon Dioxide Level 37H, Anion Gap 3L , Blood Urea Nitrogen 8, Creatinine 0.5L, Estimat Glomerular Filtration Rate , Glucose Level 85, Calcium Level 8.0L, Phosphorus Level 3.7, Magnesium Level 1.5L , Total Bilirubin 0.2, Aspartate Amino Transf (AST/SGOT) 10L, Alanine Aminotransferase (ALT/SGPT) 13, Alkaline Phosphatase 43L, Total Protein 5.5L, Albumin 2.3L, Globulin 3.2, Albumin/Globulin Ratio 0.7L 08/14/17 14:00: Vancomycin Level Trough 8.3 Height (Feet): 5 Height (Inches): 0.00 Weight (Pounds): 179 General Appearance: no apparent distress, alert Neurologic: depressed affect Luiz Morrison M.D. Aug 14, 2017 22:48
[2017-08-14] MEDS ORDERED: Zolpidem 5mg tab ORAL PRN (23:45)
[2017-08-15] VITALS: BP 147/58
[2017-08-15] MEDS: Zolpidem 5mg tab ORAL PRN ×2 (00:34→21:10)
[2017-08-15] MEDS: HydrALAZINE 25mg tab ORAL SCH ×4 (00:35→17:24)
[2017-08-15] MEDS: Vancomycin 1250mg/D5W 250ml 250 ML IVPB SCH (03:52)
[2017-08-15 04:00] VITALS: BP 155/84
[2017-08-15 08:00] VITALS: BP 154/90
[2017-08-15] MEDS: Oseltamivir 75mg cap ORAL SCH ×2 (09:46→17:27)
[2017-08-15] MEDS: Allopurinol 100mg Tab ORAL SCH (09:46)
[2017-08-15] MEDS: Furosemide 40mg tab ORAL SCH (09:47)
[2017-08-15] MEDS: Metoprolol 25mg tab ORAL SCH ×2 (09:47→21:11)
[2017-08-15] MEDS: Xarelto 10mg tab ORAL SCH (09:47)
[2017-08-15] MEDS: cefTRIAXone 2 GM in NS 55 ML IVPB SCH (09:47)
[2017-08-15] MEDS: Heparin 5000 units/ml inj SUBQ SCH ×2 (09:49→21:13)
[2017-08-15 12:00] VITALS: BP 149/71
--- NOTE | 2017-08-15 15:40 | Pulmonology Progress Note ---
Assessment/Plan Problems: (1) Healthcare-associated pneumonia (2) Bacteremia (3) COPD (chronic obstructive pulmonary disease) (4) Failure to thrive (5) Seizure disorder (6) Wheelchair bound (7) Bipolar depression (8) Cerebral vascular disease Assessment/Plan persistent bacteremia getting better continue abx respiratory treatment titrate fio2 to sat of 92% psych evaluation check blood cultures improving clinically check labs in am echo is ordered to rule out endocarditis Subjective ROS Limited/Unobtainable: No Constitutional: Reports: no symptoms HEENT: Repors: no symptoms Respiratory: Reports: no symptoms Allergies: Coded Allergies: NO KNOWN DRUG ALLERGIES (Unverified Allergy, Unknown, 07/11/15) Objective Last 24 Hour Vital Signs Date Time Temp Pulse Resp B/P (MAP) Pulse Ox O2 Delivery O2 Flow Rate FiO2 08/15/17 13:38 98.0 08/15/17 12:39 100.0 08/15/17 12:21 155/84 08/15/17 12:00 100.0 108 21 149/71 97 Room Air 100.0 08/15/17 09:47 66 155/84 08/15/17 08:00 97.5 113 18 154/90 96 Room Air 97.5 08/15/17 06:28 155/84 08/15/17 04:00 Room Air 08/15/17 04:00 97.5 66 20 155/84 92 97.5 08/15/17 00:35 147/58 08/15/17 00:00 98.1 62 18 147/58 94 Room Air 98.1 08/14/17 20:43 76 146/64 08/14/17 20:00 Room Air 08/14/17 20:00 98.2 76 18 146/64 93 98.2 08/14/17 17:22 130/62 08/14/17 16:00 97.5 62 20 132/52 94 Nasal Cannula 2.0 97.5 Intake and Output 08/14/17 08/15/17 19:00 07:00 Intake Total 650 ml 166.667 ml Balance 650 ml 166.667 ml Intake Oral 650 ml IV Total 166.667 ml # Voids 6 3 Objective General Appearance: cachectic HEENT: normocephalic, atraumatic, anicteric Respiratory/Chest: chest wall non-tender, rhonchi L>R Breasts: no masses Cardiovascular: normal peripheral pulses Abdomen: normal bowel sounds Genitourinary: normal external genitalia Microbiology Date/Time Source Procedure Growth Status 08/12/17 18:05 Blood Blood Culture - Preliminary Staphylococcus Sp Coag Neg Resulted 08/12/17 17:35 Blood Blood Culture - Preliminary Staphylococcus Sp Coag Neg Resulted Current Medications Medications (Trade) Dose Ordered Sig/Ibrahima Route PRN Reason Start Time Stop Time Status Last Admin Dose Admin Acetaminophen (Tylenol) 650 mg Q4H PRN ORAL FEVER>100.5 08/11/17 09:30 09/10/17 09:29 08/15/17 12:39 Acetaminophen/ Hydrocodone Bitart ([place] 5/325) 1 tab Q6H PRN ORAL Moderate Pain (Pain Scale 4-6) 08/11/17 09:30 08/18/17 09:29 08/14/17 12:04 Albuterol/ Ipratropium (Albuterol/ Ipratropium) 3 ml Q4H PRN HHN Shortness of Breath 08/11/17 10:00 08/16/17 09:59 Allopurinol (Zyloprim) 100 mg DAILY ORAL 08/12/17 10:00 09/11/17 09:59 08/15/17 09:46 Bupropion HCl (Wellbutrin) 100 mg EVERY 12 HOURS ORAL 08/11/17 21:00 09/10/17 20:59 08/15/17 09:46 Ceftriaxone Sodium 2 gm/ Sodium Chloride 55 ml @ 110 mls/hr Q24H IVPB 08/12/17 09:00 08/19/17 08:59 08/15/17 09:47 Clotrimazole (Lotrimin) 1 applic EVERY 12 HOURS TOPIC 08/13/17 13:00 09/12/17 12:59 08/15/17 09:48 Dextrose (Dextrose 50%) STAT PRN IV Hypoglycemia 08/11/17 09:30 09/10/17 09:29 Divalproex Sodium (Depakote) 250 mg EVERY 12 HOURS ORAL 08/11/17 21:00 09/10/17 20:59 08/15/17 09:46 Furosemide (Lasix) 40 mg DAILY ORAL 08/12/17 09:00 09/11/17 08:59 08/15/17 09:47 Heparin Sodium (Porcine) (Heparin 5000 units/ml) 5,000 units EVERY 12 HOURS SUBQ 08/11/17 21:00 09/10/17 20:59 08/15/17 09:49 Hydralazine HCl (Apresoline) 25 mg Q6HR ORAL 08/11/17 12:00 09/10/17 11:59 08/15/17 12:21 Lorazepam (Ativan 2mg/ml 1ml) 2 mg Q2H PRN IV For Anxiety 08/11/17 09:30 08/18/17 09:29 Metoprolol Tartrate (Lopressor) 25 mg Q12HR ORAL 08/11/17 21:00 09/10/17 20:59 08/15/17 09:47 Mirtazapine (Remeron) 15 mg BEDTIME ORAL 08/11/17 21:00 09/10/17 20:59 08/14/17 20:42 Morphine Sulfate (Morphine Sulfate) 4 mg Q4H PRN IVP Severe Pain (Pain Scale 7-10) 08/11/17 09:30 08/18/17 09:29 Ondansetron HCl (Zofran) 4 mg Q6H PRN IVP Nausea & Vomiting 08/11/17 09:30 09/10/17 09:29 Oseltamivir Phosphate (Tamiflu) 75 mg TWICE A DAY ORAL 08/11/17 18:00 08/16/17 09:01 08/15/17 09:46 Polyethylene Glycol (Miralax) 17 gm DAILYPRN PRN ORAL Constipation 08/11/17 09:30 09/10/17 09:29 Promethazine HCl/ Codeine (Phenergan with Codeine) 5 ml Q4H PRN ORAL For Cough 08/11/17 14:00 09/10/17 13:59 08/14/17 21:30 Risperidone (RisperDAL) 0.25 mg BID ORAL 08/11/17 18:00 09/10/17 17:59 08/15/17 09:47 Rivaroxaban (Xarelto) 10 mg DAILY ORAL 08/12/17 09:00 09/11/17 08:59 08/15/17 09:47 Solifenacin (Vesicare) 10 mg DAILY ORAL 08/12/17 11:00 09/11/17 10:59 08/15/17 09:46 Vancomycin HCl (Vanco rx to dose) 1 ea DAILY PRN MISC Per rx protocol 08/12/17 12:45 09/11/17 12:44 Vancomycin HCl/ Dextrose 250 ml @ 166.667 mls/hr Q24H IVPB 08/15/17 04:00 08/20/17 03:59 08/15/17 03:52 Zolpidem Tartrate (Ambien) 5 mg HSPRN PRN ORAL Insomnia 08/15/17 00:00 08/22/17 00:00 08/15/17 00:34 Mendel Sierra MD Aug 15, 2017 15:40
[2017-08-15 16:00] VITALS: BP 127/69
--- NOTE | 2017-08-15 16:04 | Infectious Diseases Prog Note ---
Assessment/Plan Assessment/Plan Assessment: Persistent CoNS bacteremia- ?MV endocarditis per 2d Echo findings. No central lines or PPM present. -bcx 08/11 1/4 CoNS; 08/12/4 CoNS; Bcx 08/14 P -2d echo: ecogenic material on MV leaftlest- calcification vs vegetation Cough/fever- suspect influenza despite neg screen test; possible PNA vs pulmonary congestion -no fever here so far -CXR: Left pleural effusion, new since 09/04/2016 Mild interstitial congestion - no leukocytosis Pyuria/assymptomatic bacteriuria- no UTI symptoms -ucx >100K E.coli (S ceftraxone) HTN COPD long QT syndrome Aflutter CAD s/p stent ETOH abuse s/p b/l hip replacement CVA seizure disorder [facility] resident Plan: -Continue cefriaxone abx d#4/ for possible pNA -Continue empiric Tamiflu #4/5 -08/11 SP IV Vancomycin #1, Cefepime #1, Levaquin x1 -Continue IV Vancomcyin #4 for persistent bacteremia; duration to follow pending JIMY f/u repeat Bcx -JIMY -will ask micro lab to ID CoNS -f/u cx -Monitor CBC/BMP, temperatures -aspiration precautions Thank you for this consultation. Will continue to follow along with you. Discussed with RN and Dr Sierra. Subjective Allergies: Coded Allergies: NO KNOWN DRUG ALLERGIES (Unverified Allergy, Unknown, 07/11/15) Subjective afebrile no leukocytosis still bacteremic as of 08/12 awaiting repaet Bcx 2d echo with possible vegetation Objective Vital Signs Last 24 Hour Vital Signs Date Time Temp Pulse Resp B/P (MAP) Pulse Ox O2 Delivery O2 Flow Rate FiO2 08/15/17 13:38 98.0 08/15/17 12:39 100.0 08/15/17 12:21 155/84 08/15/17 12:00 100.0 108 21 149/71 97 Room Air 100.0 08/15/17 09:47 66 155/84 08/15/17 08:00 97.5 113 18 154/90 96 Room Air 97.5 08/15/17 06:28 155/84 08/15/17 04:00 Room Air 08/15/17 04:00 97.5 66 20 155/84 92 97.5 08/15/17 00:35 147/58 08/15/17 00:00 98.1 62 18 147/58 94 Room Air 98.1 08/14/17 20:43 76 146/64 08/14/17 20:00 Room Air 08/14/17 20:00 98.2 76 18 146/64 93 98.2 08/14/17 17:22 130/62 08/14/17 16:00 97.5 62 20 132/52 94 Nasal Cannula 2.0 97.5 Height (Feet): 5 Height (Inches): 0.00 Weight (Pounds): 179 Objective General Appearance: WD/WN, cachetic Lines, tubes and drains: peripheral HEENT: normocephalic, atraumatic Neck: non-tender, supple Respiratory/Chest: rhonchi - bilaterally, rhonchi - right Cardiovascular/Chest: normal peripheral pulses, normal rate Genitourinary/Rectal: normal genital exam, heme negative stool Extremities: non-tender 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 Microbiology Date/Time Source Procedure Growth Status 08/12/17 18:05 Blood Blood Culture - Preliminary Staphylococcus Sp Coag Neg Resulted 08/12/17 17:35 Blood Blood Culture - Preliminary Staphylococcus Sp Coag Neg Resulted Current Medications Medications (Trade) Dose Ordered Sig/Ibrahima Route PRN Reason Start Time Stop Time Status Last Admin Dose Admin Acetaminophen (Tylenol) 650 mg Q4H PRN ORAL FEVER>100.5 08/11/17 09:30 09/10/17 09:29 08/15/17 12:39 Acetaminophen/ Hydrocodone Bitart ([place] 5/325) 1 tab Q6H PRN ORAL Moderate Pain (Pain Scale 4-6) 08/11/17 09:30 08/18/17 09:29 08/14/17 12:04 Albuterol/ Ipratropium (Albuterol/ Ipratropium) 3 ml Q4H PRN HHN Shortness of Breath 08/11/17 10:00 08/16/17 09:59 Allopurinol (Zyloprim) 100 mg DAILY ORAL 08/12/17 10:00 09/11/17 09:59 08/15/17 09:46 Bupropion HCl (Wellbutrin) 100 mg EVERY 12 HOURS ORAL 08/11/17 21:00 09/10/17 20:59 08/15/17 09:46 Ceftriaxone Sodium 2 gm/ Sodium Chloride 55 ml @ 110 mls/hr Q24H IVPB 08/12/17 09:00 08/19/17 08:59 08/15/17 09:47 Clotrimazole (Lotrimin) 1 applic EVERY 12 HOURS TOPIC 08/13/17 13:00 09/12/17 12:59 08/15/17 09:48 Dextrose (Dextrose 50%) STAT PRN IV Hypoglycemia 08/11/17 09:30 09/10/17 09:29 Divalproex Sodium (Depakote) 250 mg EVERY 12 HOURS ORAL 08/11/17 21:00 09/10/17 20:59 08/15/17 09:46 Furosemide (Lasix) 40 mg DAILY ORAL 08/12/17 09:00 09/11/17 08:59 08/15/17 09:47 Heparin Sodium (Porcine) (Heparin 5000 units/ml) 5,000 units EVERY 12 HOURS SUBQ 08/11/17 21:00 09/10/17 20:59 08/15/17 09:49 Hydralazine HCl (Apresoline) 25 mg Q6HR ORAL 08/11/17 12:00 09/10/17 11:59 08/15/17 12:21 Lorazepam (Ativan 2mg/ml 1ml) 2 mg Q2H PRN IV For Anxiety 08/11/17 09:30 08/18/17 09:29 Metoprolol Tartrate (Lopressor) 25 mg Q12HR ORAL 08/11/17 21:00 09/10/17 20:59 08/15/17 09:47 Mirtazapine (Remeron) 15 mg BEDTIME ORAL 08/11/17 21:00 09/10/17 20:59 08/14/17 20:42 Morphine Sulfate (Morphine Sulfate) 4 mg Q4H PRN IVP Severe Pain (Pain Scale 7-10) 08/11/17 09:30 08/18/17 09:29 Ondansetron HCl (Zofran) 4 mg Q6H PRN IVP Nausea & Vomiting 08/11/17 09:30 09/10/17 09:29 Oseltamivir Phosphate (Tamiflu) 75 mg TWICE A DAY ORAL 08/11/17 18:00 08/16/17 09:01 08/15/17 09:46 Polyethylene Glycol (Miralax) 17 gm DAILYPRN PRN ORAL Constipation 08/11/17 09:30 09/10/17 09:29 Promethazine HCl/ Codeine (Phenergan with Codeine) 5 ml Q4H PRN ORAL For Cough 08/11/17 14:00 09/10/17 13:59 08/14/17 21:30 Risperidone (RisperDAL) 0.25 mg BID ORAL 08/11/17 18:00 09/10/17 17:59 08/15/17 09:47 Rivaroxaban (Xarelto) 10 mg DAILY ORAL 08/12/17 09:00 09/11/17 08:59 08/15/17 09:47 Solifenacin (Vesicare) 10 mg DAILY ORAL 08/12/17 11:00 09/11/17 10:59 08/15/17 09:46 Vancomycin HCl (Vanco rx to dose) 1 ea DAILY PRN MISC Per rx protocol 08/12/17 12:45 09/11/17 12:44 Vancomycin HCl/ Dextrose 250 ml @ 166.667 mls/hr Q24H IVPB 08/15/17 04:00 08/20/17 03:59 08/15/17 03:52 Zolpidem Tartrate (Ambien) 5 mg HSPRN PRN ORAL Insomnia 08/15/17 00:00 08/22/17 00:00 08/15/17 00:34 Danica Nayak M.D. Aug 15, 2017 16:04
[2017-08-15] MEDS: Promethazine/Codeine 5ml UD ORAL PRN (17:24)
--- NOTE | 2017-08-15 17:44 | Cardiology Progress Note ---
Assessment/Plan Assessment/Plan damian pending pulm clearance for Friday full dose xarelto abx per id to review echo [id number] Objective Last 24 Hour Vital Signs Date Time Temp Pulse Resp B/P (MAP) Pulse Ox O2 Delivery O2 Flow Rate FiO2 08/15/17 17:24 127/69 08/15/17 16:00 97.9 65 18 127/69 96 Room Air 97.9 08/15/17 13:38 98.0 08/15/17 12:39 100.0 08/15/17 12:21 155/84 08/15/17 12:00 100.0 108 21 149/71 97 Room Air 100.0 08/15/17 09:47 66 155/84 08/15/17 08:00 97.5 113 18 154/90 96 Room Air 97.5 08/15/17 06:28 155/84 08/15/17 04:00 Room Air 08/15/17 04:00 97.5 66 20 155/84 92 97.5 08/15/17 00:35 147/58 08/15/17 00:00 98.1 62 18 147/58 94 Room Air 98.1 08/14/17 20:43 76 146/64 08/14/17 20:00 Room Air 08/14/17 20:00 98.2 76 18 146/64 93 98.2 Intake and Output 08/14/17 08/15/17 19:00 07:00 Intake Total 650 ml 166.667 ml Balance 650 ml 166.667 ml Intake Oral 650 ml IV Total 166.667 ml # Voids 6 3 Microbiology Date/Time Source Procedure Growth Status 08/12/17 18:05 Blood Blood Culture - Preliminary Staphylococcus Sp Coag Neg Resulted ABY SCHWARTZ Aug 15, 2017 17:44
--- NOTE | 2017-08-15 17:48 | Cardiology Progress Note ---
Assessment/Plan Assessment/Plan damian pending pulm clearance for Friday pt has a lead less pacemaker full dose xarelto abx per id to review echo [id number] Objective Last 24 Hour Vital Signs Date Time Temp Pulse Resp B/P (MAP) Pulse Ox O2 Delivery O2 Flow Rate FiO2 08/15/17 17:24 127/69 08/15/17 16:00 97.9 65 18 127/69 96 Room Air 97.9 08/15/17 13:38 98.0 08/15/17 12:39 100.0 08/15/17 12:21 155/84 08/15/17 12:00 100.0 108 21 149/71 97 Room Air 100.0 08/15/17 09:47 66 155/84 08/15/17 08:00 97.5 113 18 154/90 96 Room Air 97.5 08/15/17 06:28 155/84 08/15/17 04:00 Room Air 08/15/17 04:00 97.5 66 20 155/84 92 97.5 08/15/17 00:35 147/58 08/15/17 00:00 98.1 62 18 147/58 94 Room Air 98.1 08/14/17 20:43 76 146/64 08/14/17 20:00 Room Air 08/14/17 20:00 98.2 76 18 146/64 93 98.2 Intake and Output 08/14/17 08/15/17 19:00 07:00 Intake Total 650 ml 166.667 ml Balance 650 ml 166.667 ml Intake Oral 650 ml IV Total 166.667 ml # Voids 6 3 Microbiology Date/Time Source Procedure Growth Status 08/12/17 18:05 Blood Blood Culture - Preliminary Staphylococcus Sp Coag Neg Resulted ABY SCHWARTZ Aug 15, 2017 17:48
--- NOTE | 2017-08-15 18:53 | Cardiology Report ---
APPROVED REPORT EXAM: Two-dimensional and M-mode echocardiogram with Doppler and color Doppler. INDICATION [employer] M-Mode DIMENSIONS IVSd1.2 (0.7-1.1cm)Left Atrium (MM)4.8 (1.6-4.0cm) LVDd4.7 (3.5-5.6cm)Aortic Root2.9 (2.0-3.7cm) PWd0.9 (0.7-1.1cm)Aortic Cusp Exc.1.2 (1.5-2.0cm) IVSs2.4 cm LVDs2.9 (2.5-4.0cm) PWs1.9 cm Technically difficult and limited study due to poor acoustic windows. Study quality precludes accurate assessment of regional wall motion. Normal left ventricular chamber size, systolic function and wall motion. Left ventricular ejection fraction estimated to be grossly normal. Mild left ventricular hypertrophy. Anterior Echo-free space, may be due to pericardial fat or effusion. Mild left atrial enlargement. Right cardiac chamber sizes are within normal limits. Mpderate focal aortic valve sclerosis with reduced cusp excursion. Thickened mitral valve leaflets with reduced excursion. Heavy mitral annulus and aortic root calcification. Pulmonic valve not visualized. Normal tricuspid valve structure. IVC dilated at 2.1 cm with physiologic collapse suggestive of increased RA pressure. INCREASED MITRAL VAVLE ECHOES likely calcification. Consider JIMY if clinically indicated. A color flow and spectral Doppler study was performed and revealed: Mild to moderate aortic regurgitation. Moderate mitral regurgitation HOWEVER IN LIGHT OF VALVE CALCIFICATION VALDO DEGREE OF MR MAY BE MASKED BY THE CALCIFICATION Mitral P1/2 time of 50 m/s is compatible with a mitral valve area of 2.3 cm2 Peak mitral valve diastolic gradient of 19 mmHg and a mean gradient of 4 mmHg Left ventricular diastolic function could not be determined due to A-Fib. Mild tricuspid regurgitation. Tricuspid systolic velocities suggests peak right ventricular systolic pressure of 81 mmHg, consistent with severe pulmonary hypertension.
[2017-08-15 20:00] VITALS: BP 149/72
--- NOTE | 2017-08-15 20:44 | General Progress Note ---
Assessment/Plan Status: stable Assessment/Plan alcohol withdrawal anxiety mdd -cont remeron -cont ativan -cont risperdal Subjective Date patient seen: Aug 15, 2017 Neurologic/Psychiatric: Reports: anxiety, depressed, emotional problems Allergies: Coded Allergies: NO KNOWN DRUG ALLERGIES (Unverified Allergy, Unknown, 07/11/15) Objective Last 24 Hour Vital Signs Date Time Temp Pulse Resp B/P (MAP) Pulse Ox O2 Delivery O2 Flow Rate FiO2 08/15/17 17:24 127/69 08/15/17 16:00 97.9 65 18 127/69 96 Room Air 97.9 08/15/17 13:38 98.0 08/15/17 12:39 100.0 08/15/17 12:21 155/84 08/15/17 12:00 100.0 108 21 149/71 97 Room Air 100.0 08/15/17 09:47 66 155/84 08/15/17 08:00 97.5 113 18 154/90 96 Room Air 97.5 08/15/17 06:28 155/84 08/15/17 04:00 Room Air 08/15/17 04:00 97.5 66 20 155/84 92 97.5 08/15/17 00:35 147/58 08/15/17 00:00 98.1 62 18 147/58 94 Room Air 98.1 Intake and Output 08/14/17 08/15/17 19:00 07:00 Intake Total 650 ml 166.667 ml Balance 650 ml 166.667 ml Intake Oral 650 ml IV Total 166.667 ml # Voids 6 3 Height (Feet): 5 Height (Inches): 0.00 Weight (Pounds): 179 General Appearance: no apparent distress, alert Neurologic: alert, oriented x 3, responsive, depressed affect Luiz Morrison M.D. Aug 15, 2017 20:44
[2017-08-15] MEDS: Norco 5mg/325mg tab ORAL PRN (21:12)
--- NOTE | 2017-08-15 22:45 | Consultation ---
DATE OF CONSULTATION: 08/15/2017 CARDIOLOGY CONSULTATION CONSULTING PHYSICIAN: Akbar Reno M.D. REFERRING PHYSICIAN: Mendel Sierra M.D. REASON FOR REFERRAL: Possibility of endocarditis. HISTORY OF PRESENT ILLNESS: This is a 76-year-old female with history of multiple medical problems. The patient is admitted to the hospital and was diagnosed with bacteremia and concerned about possibility of endocarditis is being raised as the patient has had some abnormality on the echocardiogram resting and consideration for transesophageal echocardiogram is being given. The patient denies any chest pain or shortness of breath. She tells me she came to the hospital because of shortness of breath and coughing. She does not have any PND or orthopnea. She does not really ambulate, may be bedridden, and she has had no heart pounding or palpitation. No pain, pressure, or tightness in her chest. She has extensive medical problem list and she has been hospitalized at [facility] where I was able to get some of the records reviewed. She has a history of atrial fibrillation, stroke, and bilateral hip replacement. She has had a total abdominal hysterectomy, and she has had a fall from chair, severe alcohol abuse and dependence, insomnia, depression, and sick sinus syndrome. She underwent a pacemaker implantation back in 2016 in December. SOCIAL HISTORY: She does not smoke at the present time, she used to some 40 years ago. Does not drink alcoholic beverages. She used to use LSD, 30 years ago. She lives in a [facility]. REVIEW OF SYSTEMS: GASTROINTESTINAL: She has had some nausea. GENITOURINARY: Denies. PULMONARY: Positive coughing and congestion. CONSTITUTIONAL: Negative. NEUROLOGICAL: Inability to walk. PAST MEDICAL HISTORY: According to the facility records, chronic obstructive pulmonary disease with atrial flutter, overactive bladder, hyperlipidemia, gout, heart failure, epilepsy, gastroesophageal reflux disease, and MRSA colonization or infection previously. PHYSICAL EXAMINATION: GENERAL: Shows to be an elderly female, appears quite unkempt. She has rash throughout her body, torso, extremities. NECK: Supple. LUNGS: End-expiratory wheezes and some crackles noted. CARDIAC: Regular rhythm. No heaves or thrills. ABDOMEN: Soft and nontender. Positive bowel sounds. EXTREMITIES: There is no edema. NEUROLOGICAL: She is awake, alert, responsive, and in no apparent respiratory distress. LABORATORY AND DIAGNOSTIC DATA: White count of 9.1, hemoglobin 11.9, and platelet count of 165. Sodium is 135, potassium 3.6, chloride 95, bicarbonate 27, BUN of 8, creatinine 0.5, and glucose of 85. Troponin few days ago was 0.06. Liver function tests were normal. Albumin of 2.3. Coags, INR 1.2 and PTT of 32. Urinalysis, too numerous to count WBCs. X-rays of the chest performed two days ago shows slight improvement in interstitial congestion, persistent right infrahilar infiltrate and/or edema. She has had an echocardiogram that needs to be reviewed. ASSESSMENT AND PLAN: 1. Bacteremia, reportedly coag-negative Staph. 2. Questionable influenza infection. 3. Urinary tract infection. 4. Atrial fibrillation, flutter history. 5. History of pacemaker implantation. Dr. iSerra, this patient was seen in cardiac consultation. We will try to review the echocardiogram. The patient's EKG shows sinus rhythm with delay in R-wave progression, does not appear to have any atrial pacing on that EKG that was performed. She may qualify as needed for transesophageal echocardiogram. Concern about bacteremia is being raised. I have discussed the case with the patient and possibility of side effects and the need for monitoring daron-procedure and the risk of aspiration. The patient has given informed consent. We will try to arrange for this for this coming week. The patient is on Xarelto for stroke prevention previously and appears that she is on Xarelto pending pulmonary clearance. As per yourself, we would plan on performing the transesophageal echocardiogram on Friday. Of note, the patient's Xarelto needs to be adjusted to full therapy dose for stroke prevention. Akbar Reno M.D. DR: SAMANTA JOB#: [id number] CC:
[2017-08-16] MEDS: HydrALAZINE 25mg tab ORAL SCH ×4 (00:37→17:57)
[2017-08-16] MEDS: Vancomycin 1250mg/D5W 250ml 250 ML IVPB SCH (03:54)
[2017-08-16 04:00] VITALS: BP 152/75
[2017-08-16] MEDS: Norco 5mg/325mg tab ORAL PRN ×2 (05:23→18:07)
[2017-08-16 07:21] LABS: EOSINOPHILS % (AUTO) 4.5 % (0.0-3.0); HEMATOCRIT 36.9 % (37.0-47.0); LYMPHOCYTES % (AUTO) 9.4 % (20.0-45.0); MEAN CORPUSCULAR VOLUME 95 FL (80-99); MONOCYTES % (AUTO) 6.3 % (1.0-10.0); NEUTROPHILS % (AUTO) 78.8 % (45.0-75.0); PLATELET COUNT 152 K/UL (150-450); RED CELL DISTRIBUTION WIDTH 13.4 % (11.6-14.8); WHITE BLOOD COUNT 13.8 K/UL (4.8-10.8)
[2017-08-16 07:39] LABS: ALANINE AMINOTRANSFERASE 13 U/L (12-78); ALBUMIN 2.6 G/DL (3.4-5.0); ALBUMIN/GLOBULIN RATIO 0.7 (1.0-2.7); ALKALINE PHOSPHATASE 49 U/L (46-116); ANION GAP 6 mmol/L (5-15); ASPARTATE AMINO TRANSFERASE 16 U/L (15-37); BILIRUBIN,TOTAL 0.4 MG/DL (0.2-1.0); BLOOD UREA NITROGEN 7 mg/dL (7-18); CALCIUM 8.3 MG/DL (8.5-10.1); CARBON DIOXIDE 34 MMOL/L (21-32); CHLORIDE 94 MMOL/L (98-107); CREATININE 0.7 MG/DL (0.55-1.30); POTASSIUM 3.6 MMOL/L (3.5-5.1); SODIUM 134 MMOL/L (136-145)
[2017-08-16 08:00] VITALS: BP 140/90
[2017-08-16] MEDS: Furosemide 40mg tab ORAL SCH (09:04)
[2017-08-16] MEDS: Allopurinol 100mg Tab ORAL SCH (09:04)
[2017-08-16] MEDS: Metoprolol 25mg tab ORAL SCH ×2 (09:05→20:55)
[2017-08-16] MEDS: Xarelto 10mg tab ORAL SCH (09:06)
[2017-08-16] MEDS: cefTRIAXone 2 GM in NS 55 ML IVPB SCH (09:14)
[2017-08-16] MEDS: Oseltamivir 75mg cap ORAL SCH (10:03)
[2017-08-16 12:00] VITALS: BP 108/65
[2017-08-16 16:00] VITALS: BP 123/79
--- NOTE | 2017-08-16 16:38 | Pulmonology Progress Note ---
Assessment/Plan Problems: (1) Bacteremia (2) Healthcare-associated pneumonia (3) COPD (chronic obstructive pulmonary disease) (4) Failure to thrive (5) Seizure disorder (6) Wheelchair bound (7) Bipolar depression (8) Cerebral vascular disease Assessment/Plan persistent bacteremia last BC from 08/14 are negative getting better continue abx respiratory treatment titrate fio2 to sat of 92% psych evaluation check blood cultures improving clinically check labs in am echo reviewed, echogenic valves, will do JIMY if clinically indicated Subjective ROS Limited/Unobtainable: No Allergies: Coded Allergies: NO KNOWN DRUG ALLERGIES (Unverified Allergy, Unknown, 07/11/15) Objective Last 24 Hour Vital Signs Date Time Temp Pulse Resp B/P (MAP) Pulse Ox O2 Delivery O2 Flow Rate FiO2 08/16/17 12:00 108/69 08/16/17 12:00 98.3 62 18 108/65 97 Room Air 98.3 08/16/17 09:05 116 140/90 08/16/17 08:00 97.6 110 18 140/90 99 Room Air 97.6 08/16/17 05:22 152/75 08/16/17 04:00 97.7 77 18 152/75 94 Room Air 97.7 08/16/17 00:37 161/63 08/16/17 00:00 96.5 67 19 93 Room Air 96.5 08/15/17 21:11 68 149/72 08/15/17 20:00 97.7 68 19 149/72 93 97.7 08/15/17 20:00 Room Air 08/15/17 17:24 127/69 Intake and Output 08/15/17 08/16/17 19:00 07:00 Intake Total 890 ml 350 ml Balance 890 ml 350 ml Intake Oral 890 ml 350 ml # Voids 4 3 Objective General Appearance: cachectic HEENT: normocephalic, atraumatic, anicteric Respiratory/Chest: chest wall non-tender, rhonchi L>R Breasts: no masses Cardiovascular: normal peripheral pulses Abdomen: normal bowel sounds Genitourinary: normal external genitalia Microbiology Date/Time Source Procedure Growth Status 08/14/17 19:35 Blood Blood Culture - Preliminary NO GROWTH AFTER 24 HOURS Resulted 08/14/17 19:15 Blood Blood Culture - Preliminary NO GROWTH AFTER 24 HOURS Resulted Laboratory Tests 08/16/17 06:40: White Blood Count 13.8H, Red Blood Count 3.90L, Hemoglobin 13.0, Hematocrit 36.9L, Mean Corpuscular Volume 95, Mean Corpuscular Hemoglobin 33.2H, Mean Corpuscular Hemoglobin Concent 35.1, Red Cell Distribution Width 13.4, Platelet Count 152, Mean Platelet Volume 6.8, Neutrophils (%) (Auto) 78.8H, Lymphocytes ( %) (Auto) 9.4L, Monocytes (%) (Auto) 6.3, Eosinophils (%) (Auto) 4.5H, Basophils (%) (Auto) 1.0, Sodium Level 134L, Potassium Level 3.6, Chloride Level 94L, Carbon Dioxide Level 34H, Anion Gap 6, Blood Urea Nitrogen 7, Creatinine 0.7, Estimat Glomerular Filtration Rate , Glucose Level 133H, Calcium Level 8.3L, Phosphorus Level 4.0, Magnesium Level 1.9, Total Bilirubin 0.4, Aspartate Amino Transf (AST/SGOT) 16, Alanine Aminotransferase (ALT/SGPT) 13, Alkaline Phosphatase 49, Total Protein 6.2L, Albumin 2.6L, Globulin 3.6, Albumin/Globulin Ratio 0.7L Current Medications Medications (Trade) Dose Ordered Sig/Ibrahima Route PRN Reason Start Time Stop Time Status Last Admin Dose Admin Acetaminophen (Tylenol) 650 mg Q4H PRN ORAL FEVER>100.5 08/11/17 09:30 09/10/17 09:29 08/15/17 12:39 Acetaminophen/ Hydrocodone Bitart ([place] 5/325) 1 tab Q6H PRN ORAL Moderate Pain (Pain Scale 4-6) 08/11/17 09:30 08/18/17 09:29 08/16/17 05:23 Allopurinol (Zyloprim) 100 mg DAILY ORAL 08/12/17 10:00 09/11/17 09:59 08/16/17 09:04 Bupropion HCl (Wellbutrin) 100 mg EVERY 12 HOURS ORAL 08/11/17 21:00 09/10/17 20:59 08/16/17 09:04 Ceftriaxone Sodium 2 gm/ Sodium Chloride 55 ml @ 110 mls/hr Q24H IVPB 08/12/17 09:00 08/19/17 08:59 3/17/18 09:14 Clotrimazole (Lotrimin) 1 applic EVERY 12 HOURS TOPIC 08/13/17 13:00 09/12/17 12:59 08/16/17 09:06 Dextrose (Dextrose 50%) STAT PRN IV Hypoglycemia 08/11/17 09:30 09/10/17 09:29 Divalproex Sodium (Depakote) 250 mg EVERY 12 HOURS ORAL 08/11/17 21:00 09/10/17 20:59 08/16/17 09:14 Furosemide (Lasix) 40 mg DAILY ORAL 08/12/17 09:00 09/11/17 08:59 08/16/17 09:04 Hydralazine HCl (Apresoline) 25 mg Q6HR ORAL 08/11/17 12:00 09/10/17 11:59 08/16/17 05:22 Lorazepam (Ativan 2mg/ml 1ml) 2 mg Q2H PRN IV For Anxiety 08/11/17 09:30 08/18/17 09:29 Metoprolol Tartrate (Lopressor) 25 mg Q12HR ORAL 08/11/17 21:00 09/10/17 20:59 08/16/17 09:05 Mirtazapine (Remeron) 15 mg BEDTIME ORAL 08/11/17 21:00 09/10/17 20:59 08/15/17 21:10 Morphine Sulfate (Morphine Sulfate) 4 mg Q4H PRN IVP Severe Pain (Pain Scale 7-10) 08/11/17 09:30 08/18/17 09:29 Ondansetron HCl (Zofran) 4 mg Q6H PRN IVP Nausea & Vomiting 08/11/17 09:30 09/10/17 09:29 Polyethylene Glycol (Miralax) 17 gm DAILYPRN PRN ORAL Constipation 08/11/17 09:30 09/10/17 09:29 Promethazine HCl/ Codeine (Phenergan with Codeine) 5 ml Q4H PRN ORAL For Cough 08/11/17 14:00 09/10/17 13:59 08/15/17 17:24 Risperidone (RisperDAL) 0.25 mg BID ORAL 08/11/17 18:00 09/10/17 17:59 08/16/17 09:05 Rivaroxaban (Xarelto) 10 mg DAILY ORAL 08/12/17 09:00 09/11/17 08:59 08/16/17 09:06 Solifenacin (Vesicare) 10 mg DAILY ORAL 08/12/17 11:00 09/11/17 10:59 08/16/17 09:05 Vancomycin HCl (Vanco rx to dose) 1 ea DAILY PRN MISC Per rx protocol 08/12/17 12:45 09/11/17 12:44 Vancomycin HCl/ Dextrose 250 ml @ 166.667 mls/hr Q24H IVPB 08/15/17 04:00 08/20/17 03:59 08/16/17 03:54 Zolpidem Tartrate (Ambien) 5 mg HSPRN PRN ORAL Insomnia 08/15/17 00:00 08/22/17 00:00 08/15/17 21:10 Mendel Sierra MD Aug 16, 2017 16:38
--- NOTE | 2017-08-16 17:57 | Infectious Diseases Prog Note ---
Assessment/Plan Assessment/Plan Assessment: Leukocytosis Persistent CoNS bacteremia- ?MV endocarditis per 2d Echo findings. No central lines or PPM present. -bcx 08/11 1/4 CoNS; 08/12 07/06 CoNS; Bcx 08/14 P -2d echo: ecogenic material on MV leaftlest- calcification vs vegetation Cough/fever- suspect influenza despite neg screen test; possible PNA vs pulmonary congestion -no fever here so far -CXR: Left pleural effusion, new since 09/04/2016 Mild interstitial congestion - no leukocytosis Pyuria/assymptomatic bacteriuria- no UTI symptoms -ucx >100K E.coli (S ceftraxone) HTN COPD long QT syndrome Aflutter CAD s/p stent ETOH abuse s/p b/l hip replacement CVA seizure disorder retirement resident Plan: -Continue IV Vancomcyin # 5 for persistent bacteremia; duration to follow pending JIMY - DC cefriaxone abx d# for possible pNA - DC empiric Tamiflu # 5/5 -08/11 SP IV Vancomycin #1, Cefepime #1, Levaquin x1 f/u repeat Bcx 08/14 -JIMY on Friday -will ask micro lab to ID CoNS -Monitor CBC/BMP, temperatures -aspiration precautions Subjective Allergies: Coded Allergies: NO KNOWN DRUG ALLERGIES (Unverified Allergy, Unknown, 07/11/15) Subjective Afebrile WBC increased Objective Vital Signs Last 24 Hour Vital Signs Date Time Temp Pulse Resp B/P (MAP) Pulse Ox O2 Delivery O2 Flow Rate FiO2 08/16/17 12:00 108/69 08/16/17 12:00 98.3 62 18 108/65 97 Room Air 98.3 08/16/17 09:05 116 140/90 08/16/17 08:00 97.6 110 18 140/90 99 Room Air 97.6 08/16/17 05:22 152/75 08/16/17 04:00 97.7 77 18 152/75 94 Room Air 97.7 08/16/17 00:37 161/63 08/16/17 00:00 96.5 67 19 93 Room Air 96.5 08/15/17 21:11 68 149/72 08/15/17 20:00 97.7 68 19 149/72 93 97.7 08/15/17 20:00 Room Air Height (Feet): 5 Height (Inches): 0.00 Weight (Pounds): 179 HEENT: anicteric Respiratory/Chest: normal breath sounds Cardiovascular: regular rhythm Abdomen: no organomegaly Microbiology Date/Time Source Procedure Growth Status 08/14/17 19:35 Blood Blood Culture - Preliminary NO GROWTH AFTER 24 HOURS Resulted 08/14/17 19:15 Blood Blood Culture - Preliminary NO GROWTH AFTER 24 HOURS Resulted Laboratory Tests Test 08/16/17 06:40 White Blood Count 13.8 K/UL (4.8-10.8) H Red Blood Count 3.90 M/UL (4.20-5.40) L Hemoglobin 13.0 G/DL (12.0-16.0) Hematocrit 36.9 % (37.0-47.0) L Mean Corpuscular Volume 95 FL (80-99) Mean Corpuscular Hemoglobin 33.2 PG (27.0-31.0) H Mean Corpuscular Hemoglobin Concent 35.1 G/DL (32.0-36.0) Red Cell Distribution Width 13.4 % (11.6-14.8) Platelet Count 152 K/UL (150-450) Mean Platelet Volume 6.8 FL (6.5-10.1) Neutrophils (%) (Auto) 78.8 % (45.0-75.0) H Lymphocytes (%) (Auto) 9.4 % (20.0-45.0) L Monocytes (%) (Auto) 6.3 % (1.0-10.0) Eosinophils (%) (Auto) 4.5 % (0.0-3.0) H Basophils (%) (Auto) 1.0 % (0.0-2.0) Sodium Level 134 MMOL/L (136-145) L Potassium Level 3.6 MMOL/L (3.5-5.1) Chloride Level 94 MMOL/L (98-107) L Carbon Dioxide Level 34 MMOL/L (21-32) H Anion Gap 6 mmol/L (5-15) Blood Urea Nitrogen 7 mg/dL (7-18) Creatinine 0.7 MG/DL (0.55-1.30) Estimat Glomerular Filtration Rate mL/min (>60) Glucose Level 133 MG/DL (74-106) H Calcium Level 8.3 MG/DL (8.5-10.1) L Phosphorus Level 4.0 MG/DL (2.5-4.9) Magnesium Level 1.9 MG/DL (1.8-2.4) Total Bilirubin 0.4 MG/DL (0.2-1.0) Aspartate Amino Transf (AST/SGOT) 16 U/L (15-37) Alanine Aminotransferase (ALT/SGPT) 13 U/L (12-78) Alkaline Phosphatase 49 U/L (46-116) Total Protein 6.2 G/DL (6.4-8.2) L Albumin 2.6 G/DL (3.4-5.0) L Globulin 3.6 g/dL Albumin/Globulin Ratio 0.7 (1.0-2.7) L Current Medications Medications (Trade) Dose Ordered Sig/Ibrahima Route PRN Reason Start Time Stop Time Status Last Admin Dose Admin Acetaminophen (Tylenol) 650 mg Q4H PRN ORAL FEVER>100.5 08/11/17 09:30 09/10/17 09:29 08/15/17 12:39 Acetaminophen/ Hydrocodone Bitart ([place] 5/325) 1 tab Q6H PRN ORAL Moderate Pain (Pain Scale 4-6) 08/11/17 09:30 08/18/17 09:29 08/16/17 05:23 Allopurinol (Zyloprim) 100 mg DAILY ORAL 08/12/17 10:00 09/11/17 09:59 08/16/17 09:04 Bupropion HCl (Wellbutrin) 100 mg EVERY 12 HOURS ORAL 08/11/17 21:00 09/10/17 20:59 08/16/17 09:04 Ceftriaxone Sodium 2 gm/ Sodium Chloride 55 ml @ 110 mls/hr Q24H IVPB 08/12/17 09:00 08/19/17 08:59 08/16/17 09:14 Clotrimazole (Lotrimin) 1 applic EVERY 12 HOURS TOPIC 08/13/17 13:00 09/12/17 12:59 08/16/17 09:06 Dextrose (Dextrose 50%) STAT PRN IV Hypoglycemia 08/11/17 09:30 09/10/17 09:29 Divalproex Sodium (Depakote) 250 mg EVERY 12 HOURS ORAL 08/11/17 21:00 4/11/18 20:59 08/16/17 09:14 Furosemide (Lasix) 40 mg DAILY ORAL 08/12/17 09:00 09/11/17 08:59 08/16/17 09:04 Hydralazine HCl (Apresoline) 25 mg Q6HR ORAL 08/11/17 12:00 09/10/17 11:59 08/16/17 05:22 Lorazepam (Ativan 2mg/ml 1ml) 2 mg Q2H PRN IV For Anxiety 08/11/17 09:30 08/18/17 09:29 Metoprolol Tartrate (Lopressor) 25 mg Q12HR ORAL 08/11/17 21:00 09/10/17 20:59 08/16/17 09:05 Mirtazapine (Remeron) 15 mg BEDTIME ORAL 08/11/17 21:00 09/10/17 20:59 08/15/17 21:10 Morphine Sulfate (Morphine Sulfate) 4 mg Q4H PRN IVP Severe Pain (Pain Scale 7-10) 08/11/17 09:30 08/18/17 09:29 Ondansetron HCl (Zofran) 4 mg Q6H PRN IVP Nausea & Vomiting 08/11/17 09:30 09/10/17 09:29 Polyethylene Glycol (Miralax) 17 gm DAILYPRN PRN ORAL Constipation 08/11/17 09:30 09/10/17 09:29 Promethazine HCl/ Codeine (Phenergan with Codeine) 5 ml Q4H PRN ORAL For Cough 08/11/17 14:00 09/10/17 13:59 08/15/17 17:24 Risperidone (RisperDAL) 0.25 mg BID ORAL 08/11/17 18:00 09/10/17 17:59 08/16/17 09:05 Rivaroxaban (Xarelto) 10 mg DAILY ORAL 08/12/17 09:00 09/11/17 08:59 08/16/17 09:06 Solifenacin (Vesicare) 10 mg DAILY ORAL 08/12/17 11:00 09/11/17 10:59 08/16/17 09:05 Vancomycin HCl (Vanco rx to dose) 1 ea DAILY PRN MISC Per rx protocol 08/12/17 12:45 09/11/17 12:44 Vancomycin HCl/ Dextrose 250 ml @ 166.667 mls/hr Q24H IVPB 08/15/17 04:00 08/20/17 03:59 08/16/17 03:54 Zolpidem Tartrate (Ambien) 5 mg HSPRN PRN ORAL Insomnia 08/15/17 00:00 08/22/17 00:00 08/15/17 21:10 NETO ZEPEDA M.D. Aug 16, 2017 17:57
[2017-08-16 20:00] VITALS: BP 151/79
[2017-08-17] VITALS: BP 114/68
[2017-08-17] MEDS: Norco 5mg/325mg tab ORAL PRN ×3 (00:33→22:43)
[2017-08-17] MEDS: Zolpidem 5mg tab ORAL PRN ×2 (00:34→22:43)
[2017-08-17] MEDS: HydrALAZINE 25mg tab ORAL SCH ×4 (00:34→17:27)
[2017-08-17 04:00] VITALS: BP 135/71
[2017-08-17] MEDS ORDERED: Vancomycin 1750mg/D5W 300ml IVPB SCH ×2 (05:00)
[2017-08-17] MEDS ORDERED: Vancomycin 1gm inj IVPB ONE (05:27)
[2017-08-17] MEDS ORDERED: VANCOMYCIN IVPB ONE (05:28)
[2017-08-17] MEDS ORDERED: [UNRECOGNIZED DRUG - OTHER] IVPB ONE (05:28)
[2017-08-17 08:00] VITALS: BP 146/91
[2017-08-17] MEDS: Furosemide 40mg tab ORAL SCH (08:52)
[2017-08-17] MEDS: Metoprolol 25mg tab ORAL SCH ×2 (08:53→21:04)
[2017-08-17] MEDS: Allopurinol 100mg Tab ORAL SCH (08:53)
[2017-08-17] MEDS: Xarelto 10mg tab ORAL SCH (08:54)
[2017-08-17] MEDS: Promethazine/Codeine 5ml UD ORAL PRN (09:16)
[2017-08-17 12:00] VITALS: BP 128/79
[2017-08-17 16:00] VITALS: BP 149/72
[2017-08-17] MEDS: Calamine Lotion 4oz TOPIC PRN (16:02)
[2017-08-17 20:00] VITALS: BP 158/68
--- NOTE | 2017-08-17 21:23 | Cardiology Progress Note ---
Assessment/Plan Assessment/Plan No evidence of sepsis clinically, endocarditis work up in [facility] Subjective Subjective The patient is sleeping comfortably, arousable, denies palptiations, fever. shills Objective Last 24 Hour Vital Signs Date Time Temp Pulse Resp B/P (MAP) Pulse Ox O2 Delivery O2 Flow Rate FiO2 08/17/17 21:04 68 158/68 08/17/17 20:00 97.3 68 20 158/68 98 97.3 08/17/17 17:27 149/72 08/17/17 16:00 98.0 64 20 149/72 97 Room Air 98.0 08/17/17 12:45 128/79 08/17/17 12:00 97.1 107 20 128/79 97 Room Air 97.1 08/17/17 10:17 97.3 08/17/17 09:18 97.3 08/17/17 08:53 115 146/91 08/17/17 08:00 97.7 20 146/91 94 Room Air 97.7 08/17/17 05:54 135/71 08/17/17 04:00 97.3 68 20 135/71 91 97.3 08/17/17 04:00 95 Room Air 08/17/17 00:34 114/68 08/17/17 00:00 95 Room Air 08/17/17 00:00 97.7 82 19 114/68 95 97.7 General Appearance: no apparent distress EENT: PERRL/EOMI Neck: JVD Cardiovascular: regularly irregular Respiratory/Chest: chest wall non-tender, rhonchi - bilaterally Abdomen: distended Extremities: trace edema Intake and Output 08/16/17 08/17/17 19:00 07:00 Intake Total 640 ml 912.5 ml Balance 640 ml 912.5 ml Intake Oral 640 ml 750 ml IV Total 162.5 ml # Voids 3 2 Laboratory Tests Test 08/17/17 03:05 Vancomycin Level Trough 9.8 ug/mL (5.0-12.0) ALESHIA WHITFIELD 18, 2018 21:23
--- NOTE | 2017-08-17 22:05 | Pulmonology Progress Note ---
Assessment/Plan Problems: (1) Bacteremia (2) Healthcare-associated pneumonia (3) COPD (chronic obstructive pulmonary disease) (4) Failure to thrive (5) Seizure disorder (6) Wheelchair bound (7) Bipolar depression (8) Cerebral vascular disease Assessment/Plan persistent bacteremia last BC from 08/14 are negative getting better continue abx respiratory treatment titrate fio2 to sat of 92% psych evaluation check blood cultures improving clinically check labs in am echo reviewed, echogenic valves, will do JIMY if clinically indicated Subjective ROS Limited/Unobtainable: No Constitutional: Reports: no symptoms HEENT: Repors: no symptoms Respiratory: Reports: no symptoms Allergies: Coded Allergies: NO KNOWN DRUG ALLERGIES (Unverified Allergy, Unknown, 07/11/15) Objective Last 24 Hour Vital Signs Date Time Temp Pulse Resp B/P (MAP) Pulse Ox O2 Delivery O2 Flow Rate FiO2 08/17/17 21:04 68 158/68 08/17/17 20:00 97.3 68 20 158/68 98 97.3 08/17/17 17:27 149/72 08/17/17 16:00 98.0 64 20 149/72 97 Room Air 98.0 08/17/17 12:45 128/79 08/17/17 12:00 97.1 107 20 128/79 97 Room Air 97.1 08/17/17 10:17 97.3 08/17/17 09:18 97.3 08/17/17 08:53 115 146/91 08/17/17 08:00 97.7 20 146/91 94 Room Air 97.7 08/17/17 05:54 135/71 08/17/17 04:00 97.3 68 20 135/71 91 97.3 08/17/17 04:00 95 Room Air 08/17/17 00:34 114/68 08/17/17 00:00 95 Room Air 08/17/17 00:00 97.7 82 19 114/68 95 97.7 Intake and Output 08/16/17 08/17/17 19:00 07:00 Intake Total 640 ml 912.5 ml Balance 640 ml 912.5 ml Intake Oral 640 ml 750 ml IV Total 162.5 ml # Voids 3 2 Objective General Appearance: cachectic HEENT: normocephalic, atraumatic, anicteric Respiratory/Chest: chest wall non-tender, rhonchi L>R Breasts: no masses Cardiovascular: normal peripheral pulses Abdomen: normal bowel sounds Genitourinary: normal external genitalia Laboratory Tests 08/17/17 03:05: Vancomycin Level Trough 9.8 Current Medications Medications (Trade) Dose Ordered Sig/Ibrahima Route PRN Reason Start Time Stop Time Status Last Admin Dose Admin Acetaminophen (Tylenol) 650 mg Q4H PRN ORAL FEVER>100.5 08/11/17 09:30 09/10/17 09:29 08/15/17 12:39 Acetaminophen/ Hydrocodone Bitart ([place] 5/325) 1 tab Q6H PRN ORAL Moderate Pain (Pain Scale 4-6) 08/11/17 09:30 08/18/17 09:29 08/17/17 09:18 Allopurinol (Zyloprim) 100 mg DAILY ORAL 08/12/17 10:00 09/11/17 09:59 08/17/17 08:53 Bupropion HCl (Wellbutrin) 100 mg EVERY 12 HOURS ORAL 08/11/17 21:00 09/10/17 20:59 08/17/17 21:04 Calamine (Calamine) 1 applic QIDPRN PRN TOPIC Itching 08/17/17 14:45 09/16/17 14:44 08/17/17 16:02 Clotrimazole (Lotrimin) 1 applic EVERY 12 HOURS TOPIC 08/13/17 13:00 09/12/17 12:59 08/17/17 21:05 Dextrose (Dextrose 50%) STAT PRN IV Hypoglycemia 08/11/17 09:30 09/10/17 09:29 Diphenhydramine HCl (Benadryl) 25 mg Q6H PRN ORAL Itching 08/17/17 14:45 09/16/17 14:44 08/17/17 16:02 Divalproex Sodium (Depakote) 250 mg EVERY 12 HOURS ORAL 08/11/17 21:00 09/10/17 20:59 08/17/17 21:04 Furosemide (Lasix) 40 mg DAILY ORAL 08/12/17 09:00 09/11/17 08:59 08/17/17 08:52 Hydralazine HCl (Apresoline) 25 mg Q6HR ORAL 08/11/17 12:00 09/10/17 11:59 08/17/17 17:27 Lorazepam (Ativan 2mg/ml 1ml) 2 mg Q2H PRN IV For Anxiety 08/11/17 09:30 08/18/17 09:29 Metoprolol Tartrate (Lopressor) 25 mg Q12HR ORAL 08/11/17 21:00 09/10/17 20:59 08/17/17 21:04 Mirtazapine (Remeron) 15 mg BEDTIME ORAL 08/11/17 21:00 09/10/17 20:59 08/17/17 21:04 Morphine Sulfate (Morphine Sulfate) 4 mg Q4H PRN IVP Severe Pain (Pain Scale 7-10) 08/11/17 09:30 08/18/17 09:29 Ondansetron HCl (Zofran) 4 mg Q6H PRN IVP Nausea & Vomiting 08/11/17 09:30 09/10/17 09:29 Polyethylene Glycol (Miralax) 17 gm DAILYPRN PRN ORAL Constipation 08/11/17 09:30 09/10/17 09:29 08/17/17 17:28 Promethazine HCl/ Codeine (Phenergan with Codeine) 5 ml Q4H PRN ORAL For Cough 08/11/17 14:00 09/10/17 13:59 08/17/17 09:16 Risperidone (RisperDAL) 0.25 mg BID ORAL 08/11/17 18:00 09/10/17 17:59 08/17/17 17:27 Rivaroxaban (Xarelto) 10 mg DAILY ORAL 08/12/17 09:00 09/11/17 08:59 08/17/17 08:54 Solifenacin (Vesicare) 10 mg DAILY ORAL 08/12/17 11:00 09/11/17 10:59 08/17/17 08:53 Vancomycin HCl (Vanco rx to dose) 1 ea DAILY PRN MISC Per rx protocol 08/12/17 12:45 09/11/17 12:44 Vancomycin HCl/ Dextrose 250 ml @ 125 mls/hr Q24H IVPB 08/18/17 09:00 08/23/17 08:59 Zolpidem Tartrate (Ambien) 5 mg HSPRN PRN ORAL Insomnia 3/16/18 00:00 08/22/17 00:00 08/17/17 00:34 Mendel Sierra MD Aug 17, 2017 22:05
--- NOTE | 2017-08-17 22:17 | Psych Consult Progress Note ---
Psych Consult Progress Note Consult 08/16/17 alcohol withdrawal anxiety mdd -cont remeron -cont ativan -cont risperdal Vital Signs Last 24 Hour Vital Signs Date Time Temp Pulse Resp B/P (MAP) Pulse Ox O2 Delivery O2 Flow Rate FiO2 08/17/17 21:04 68 158/68 08/17/17 20:00 97.3 68 20 158/68 98 97.3 08/17/17 17:27 149/72 08/17/17 16:00 98.0 64 20 149/72 97 Room Air 98.0 08/17/17 12:45 128/79 08/17/17 12:00 97.1 107 20 128/79 97 Room Air 97.1 08/17/17 10:17 97.3 08/17/17 09:18 97.3 08/17/17 08:53 115 146/91 08/17/17 08:00 97.7 20 146/91 94 Room Air 97.7 08/17/17 05:54 135/71 08/17/17 04:00 97.3 68 20 135/71 91 97.3 08/17/17 04:00 95 Room Air 08/17/17 00:34 114/68 08/17/17 00:00 95 Room Air 08/17/17 00:00 97.7 82 19 114/68 95 97.7 Labs Laboratory Tests Test 08/17/17 03:05 Vancomycin Level Trough 9.8 ug/mL (5.0-12.0) Medications Current Medications Medications (Trade) Dose Ordered Sig/Ibrahima Route PRN Reason Start Time Stop Time Status Last Admin Dose Admin Acetaminophen (Tylenol) 650 mg Q4H PRN ORAL FEVER>100.5 08/11/17 09:30 09/10/17 09:29 08/15/17 12:39 Acetaminophen/ Hydrocodone Bitart ([place] 5/325) 1 tab Q6H PRN ORAL Moderate Pain (Pain Scale 4-6) 08/11/17 09:30 08/18/17 09:29 08/17/17 09:18 Allopurinol (Zyloprim) 100 mg DAILY ORAL 08/12/17 10:00 09/11/17 09:59 08/17/17 08:53 Bupropion HCl (Wellbutrin) 100 mg EVERY 12 HOURS ORAL 08/11/17 21:00 09/10/17 20:59 08/17/17 21:04 Calamine (Calamine) 1 applic QIDPRN PRN TOPIC Itching 08/17/17 14:45 09/16/17 14:44 08/17/17 16:02 Clotrimazole (Lotrimin) 1 applic EVERY 12 HOURS TOPIC 08/13/17 13:00 09/12/17 12:59 08/17/17 21:05 Dextrose (Dextrose 50%) STAT PRN IV Hypoglycemia 08/11/17 09:30 09/10/17 09:29 Diphenhydramine HCl (Benadryl) 25 mg Q6H PRN ORAL Itching 08/17/17 14:45 09/16/17 14:44 08/17/17 16:02 Divalproex Sodium (Depakote) 250 mg EVERY 12 HOURS ORAL 08/11/17 21:00 09/10/17 20:59 08/17/17 21:04 Furosemide (Lasix) 40 mg DAILY ORAL 08/12/17 09:00 09/11/17 08:59 08/17/17 08:52 Hydralazine HCl (Apresoline) 25 mg Q6HR ORAL 08/11/17 12:00 09/10/17 11:59 08/17/17 17:27 Lorazepam (Ativan 2mg/ml 1ml) 2 mg Q2H PRN IV For Anxiety 08/11/17 09:30 08/18/17 09:29 Metoprolol Tartrate (Lopressor) 25 mg Q12HR ORAL 08/11/17 21:00 09/10/17 20:59 08/17/17 21:04 Mirtazapine (Remeron) 15 mg BEDTIME ORAL 08/11/17 21:00 09/10/17 20:59 08/17/17 21:04 Morphine Sulfate (Morphine Sulfate) 4 mg Q4H PRN IVP Severe Pain (Pain Scale 7-10) 08/11/17 09:30 08/18/17 09:29 Ondansetron HCl (Zofran) 4 mg Q6H PRN IVP Nausea & Vomiting 08/11/17 09:30 09/10/17 09:29 Polyethylene Glycol (Miralax) 17 gm DAILYPRN PRN ORAL Constipation 08/11/17 09:30 09/10/17 09:29 08/17/17 17:28 Promethazine HCl/ Codeine (Phenergan with Codeine) 5 ml Q4H PRN ORAL For Cough 08/11/17 14:00 09/10/17 13:59 08/17/17 09:16 Risperidone (RisperDAL) 0.25 mg BID ORAL 08/11/17 18:00 09/10/17 17:59 08/17/17 17:27 Rivaroxaban (Xarelto) 10 mg DAILY ORAL 08/12/17 09:00 09/11/17 08:59 08/17/17 08:54 Solifenacin (Vesicare) 10 mg DAILY ORAL 08/12/17 11:00 09/11/17 10:59 08/17/17 08:53 Vancomycin HCl (Vanco rx to dose) 1 ea DAILY PRN MISC Per rx protocol 08/12/17 12:45 09/11/17 12:44 Vancomycin HCl/ Dextrose 250 ml @ 125 mls/hr Q24H IVPB 08/18/17 09:00 08/23/17 08:59 Zolpidem Tartrate (Ambien) 5 mg HSPRN PRN ORAL Insomnia 08/15/17 00:00 08/22/17 00:00 08/17/17 00:34 Problems: Luiz Morrison M.D. Aug 17, 2017 22:17
--- NOTE | 2017-08-17 22:17 | General Progress Note ---
Assessment/Plan Status: stable, progressing Assessment/Plan anxiety mdd -cont remeron -cont ativan -cont risperdal Subjective Date patient seen: Aug 17, 2017 Neurologic/Psychiatric: Reports: anxiety, depressed, emotional problems Allergies: Coded Allergies: NO KNOWN DRUG ALLERGIES (Unverified Allergy, Unknown, 07/11/15) Objective Last 24 Hour Vital Signs Date Time Temp Pulse Resp B/P (MAP) Pulse Ox O2 Delivery O2 Flow Rate FiO2 08/17/17 21:04 68 158/68 08/17/17 20:00 97.3 68 20 158/68 98 97.3 08/17/17 17:27 149/72 08/17/17 16:00 98.0 64 20 149/72 97 Room Air 98.0 08/17/17 12:45 128/79 08/17/17 12:00 97.1 107 20 128/79 97 Room Air 97.1 08/17/17 10:17 97.3 08/17/17 09:18 97.3 08/17/17 08:53 115 146/91 08/17/17 08:00 97.7 20 146/91 94 Room Air 97.7 08/17/17 05:54 135/71 08/17/17 04:00 97.3 68 20 135/71 91 97.3 08/17/17 04:00 95 Room Air 08/17/17 00:34 114/68 08/17/17 00:00 95 Room Air 08/17/17 00:00 97.7 82 19 114/68 95 97.7 Intake and Output 08/16/17 08/17/17 19:00 07:00 Intake Total 640 ml 912.5 ml Balance 640 ml 912.5 ml Intake Oral 640 ml 750 ml IV Total 162.5 ml # Voids 3 2 Laboratory Tests 08/17/17 03:05: Vancomycin Level Trough 9.8 Height (Feet): 5 Height (Inches): 0.00 Weight (Pounds): 179 Luiz Morrison M.D. Aug 17, 2017 22:17
[2017-08-18] VITALS: BP 146/73
[2017-08-18] MEDS: HydrALAZINE 25mg tab ORAL SCH ×4 (00:18→17:56)
[2017-08-18 07:06] VITALS: BP 138/79
[2017-08-18 08:23] LABS: EOSINOPHILS % (AUTO) 6.2 % (0.0-3.0); HEMOGLOBIN 12.2 G/DL (12.0-16.0); LYMPHOCYTES % (AUTO) 14.9 % (20.0-45.0); MEAN CORPUSCULAR VOLUME 94 FL (80-99); MONOCYTES % (AUTO) 6.1 % (1.0-10.0); NEUTROPHILS % (AUTO) 71.9 % (45.0-75.0); PLATELET COUNT 187 K/UL (150-450); RED BLOOD COUNT 3.41 M/UL (4.20-5.40); RED CELL DISTRIBUTION WIDTH 13.6 % (11.6-14.8); WHITE BLOOD COUNT 10.5 K/UL (4.8-10.8)
[2017-08-18] MEDS: Promethazine/Codeine 5ml UD ORAL PRN (08:55)
[2017-08-18] MEDS: Allopurinol 100mg Tab ORAL SCH (08:56)
[2017-08-18] MEDS: Xarelto 10mg tab ORAL SCH (08:56)
[2017-08-18] MEDS: Furosemide 40mg tab ORAL SCH (08:56)
[2017-08-18] MEDS: Metoprolol 25mg tab ORAL SCH ×2 (08:57→20:48)
[2017-08-18] MEDS: Calamine Lotion 4oz TOPIC PRN (08:58)
[2017-08-18 09:10] LABS: ALANINE AMINOTRANSFERASE 24 U/L (12-78); ALBUMIN 2.6 G/DL (3.4-5.0); ALBUMIN/GLOBULIN RATIO 0.7 (1.0-2.7); ALKALINE PHOSPHATASE 48 U/L (46-116); ANION GAP 4 mmol/L (5-15); ASPARTATE AMINO TRANSFERASE 40 U/L (15-37); BILIRUBIN,TOTAL 0.4 MG/DL (0.2-1.0); BLOOD UREA NITROGEN 13 mg/dL (7-18); CALCIUM 8.5 MG/DL (8.5-10.1); CARBON DIOXIDE 34 MMOL/L (21-32); CHLORIDE 99 MMOL/L (98-107); CREATININE 0.5 MG/DL (0.55-1.30); PHOSPHORUS 4.6 MG/DL (2.5-4.9); POTASSIUM 4.4 MMOL/L (3.5-5.1); SODIUM 137 MMOL/L (136-145)
[2017-08-18] MEDS: Vancomycin 1.5 GM/D5W 250ML IVPB SCH (10:03)
[2017-08-18 12:13] VITALS: BP 147/73
--- NOTE | 2017-08-18 13:00 | Progress Note ---
DATE: 08/18/2017 SUBJECTIVE: The patient is doing well. She is requesting placement. She has depressed mood, anxiety, however is manageable on current medication regimen. The patient's sleep and appetite is adequate. MENTAL STATUS EXAMINATION: Alert and oriented times self, place, and situation. Mood is depressed. Affect is constricted. Congruent with mood. Thought process is concrete. Thought content, no suicidal or homicidal ideations. ASSESSMENT: Depression, anxiety, alcohol withdrawal. PLAN: 1. The patient will be continued on Remeron. 2. Continue the Ativan. 3. Provide the patient with supportive therapy and reality orientation. 4. We will continue to follow and readjust the medications. Luiz Morrison M.D. DR: JOHN JOB#: [id number] CC:
--- NOTE | 2017-08-18 13:02 | Infectious Diseases Prog Note ---
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 No central lines or PPM present. -bcx 08/11 1/4 CoNS; 08/12/4 S. hominis; Bcx 08/14 NTD -2d echo: ecogenic material on MV leaftlest- calcification vs vegetation. Moderate mitral regurgitation HOWEVER IN LIGHT OF VALVE CALCIFICATION VALDO DEGREE OF MR MAY BE MASKED BY THE CALCIFICATION Cough/fever- suspect influenza despite neg screen test; possible PNA vs pulmonary congestion; s/p Rx -no fever here so far -CXR: Left pleural effusion, new since 09/04/2016 Mild interstitial congestion - no leukocytosis Leukocytosis , resolved Pyuria/assymptomatic bacteriuria- no UTI symptoms -ucx >100K E.coli (S ceftraxone) HTN COPD long QT syndrome Aflutter CAD s/p stent ETOH abuse s/p b/l hip replacement CVA seizure disorder group home resident Plan: -Continue IV Vancomcyin # 7 for persistent bacteremia; duration to follow pending JIMY and Give One time dose of Daptomycin 6mg/kg as vanco through not therapeutic yet -08/16 SP Ceftriaxone #5, Tamiflu #5 -08/11 SP IV Vancomycin #1, Cefepime #1, Levaquin x1 f/u repeat Bcx 08/14 -JIMY on Friday -will ask micro lab to ID CoNS Bcx 08/11 -Monitor CBC/BMP, temperatures -aspiration precautions Subjective Allergies: Coded Allergies: NO KNOWN DRUG ALLERGIES (Unverified Allergy, Unknown, 07/11/15) Subjective afebrile leukocytosis resolved repeat Bcx 08/14 NTD JIMY tomorrow Objective Vital Signs Last 24 Hour Vital Signs Date Time Temp Pulse Resp B/P (MAP) Pulse Ox O2 Delivery O2 Flow Rate FiO2 08/18/17 12:16 147/73 08/18/17 12:13 98.6 63 17 147/73 98 Room Air 98.6 08/18/17 08:57 99 147/76 08/18/17 07:06 98.3 82 19 138/79 94 98.3 08/18/17 06:52 175/71 08/18/17 00:18 175/71 08/18/17 00:00 97.0 76 20 146/73 84 97.0 08/18/17 00:00 94 Room Air 08/17/17 21:04 68 158/68 08/17/17 20:00 97.3 68 20 158/68 98 97.3 08/17/17 20:00 98 Room Air 08/17/17 17:27 149/72 08/17/17 16:00 98.0 64 20 149/72 97 Room Air 98.0 Height (Feet): 5 Height (Inches): 0.00 Weight (Pounds): 179 Objective General Appearance: WD/WN, cachetic Lines, tubes and drains: peripheral HEENT: normocephalic, atraumatic Neck: non-tender, supple Respiratory/Chest: rhonchi - bilaterally, rhonchi - right Cardiovascular/Chest: normal peripheral pulses, normal rate Genitourinary/Rectal: normal genital exam, heme negative stool Extremities: non-tender Neurologic: lace burn out tender II-XII grossly normal Laboratory Tests Test 08/18/17 05:45 White Blood Count 10.5 K/UL (4.8-10.8) Red Blood Count 3.41 M/UL (4.20-5.40) L Hemoglobin 12.2 G/DL (12.0-16.0) Hematocrit 32.0 % (37.0-47.0) L Mean Corpuscular Volume 94 FL (80-99) Mean Corpuscular Hemoglobin 35.8 PG (27.0-31.0) H Mean Corpuscular Hemoglobin Concent 38.2 G/DL (32.0-36.0) H Red Cell Distribution Width 13.6 % (11.6-14.8) Platelet Count 187 K/UL (150-450) Mean Platelet Volume 6.7 FL (6.5-10.1) Neutrophils (%) (Auto) 71.9 % (45.0-75.0) Lymphocytes (%) (Auto) 14.9 % (20.0-45.0) L Monocytes (%) (Auto) 6.1 % (1.0-10.0) Eosinophils (%) (Auto) 6.2 % (0.0-3.0) H Basophils (%) (Auto) 1.0 % (0.0-2.0) Sodium Level 137 MMOL/L (136-145) Potassium Level 4.4 MMOL/L (3.5-5.1) Chloride Level 99 MMOL/L (98-107) Carbon Dioxide Level 34 MMOL/L (21-32) H Anion Gap 4 mmol/L (5-15) L Blood Urea Nitrogen 13 mg/dL (7-18) Creatinine 0.5 MG/DL (0.55-1.30) L Estimat Glomerular Filtration Rate mL/min (>60) Glucose Level 74 MG/DL (74-106) Calcium Level 8.5 MG/DL (8.5-10.1) Phosphorus Level 4.6 MG/DL (2.5-4.9) Magnesium Level 2.1 MG/DL (1.8-2.4) Total Bilirubin 0.4 MG/DL (0.2-1.0) Aspartate Amino Transf (AST/SGOT) 40 U/L (15-37) H Alanine Aminotransferase (ALT/SGPT) 24 U/L (12-78) Alkaline Phosphatase 48 U/L (46-116) Total Protein 6.2 G/DL (6.4-8.2) L Albumin 2.6 G/DL (3.4-5.0) L Globulin 3.6 g/dL Albumin/Globulin Ratio 0.7 (1.0-2.7) L Current Medications Medications (Trade) Dose Ordered Sig/Ibrahima Route PRN Reason Start Time Stop Time Status Last Admin Dose Admin Acetaminophen (Tylenol) 650 mg Q4H PRN ORAL FEVER>100.5 08/11/17 09:30 09/10/17 09:29 08/15/17 12:39 Allopurinol (Zyloprim) 100 mg DAILY ORAL 08/12/17 10:00 09/11/17 09:59 08/18/17 08:56 Bupropion HCl (Wellbutrin) 100 mg EVERY 12 HOURS ORAL 08/11/17 21:00 09/10/17 20:59 08/18/17 08:56 Calamine (Calamine) 1 applic QIDPRN PRN TOPIC Itching 08/17/17 14:45 09/16/17 14:44 08/18/17 08:58 Clotrimazole (Lotrimin) 1 applic EVERY 12 HOURS TOPIC 08/13/17 13:00 09/12/17 12:59 08/18/17 08:58 Dextrose (Dextrose 50%) STAT PRN IV Hypoglycemia 08/11/17 09:30 09/10/17 09:29 Diphenhydramine HCl (Benadryl) 25 mg Q6H PRN ORAL Itching 08/17/17 14:45 09/16/17 14:44 08/17/17 16:02 Divalproex Sodium (Depakote) 250 mg EVERY 12 HOURS ORAL 08/11/17 21:00 09/10/17 20:59 08/18/17 08:55 Furosemide (Lasix) 40 mg DAILY ORAL 08/12/17 09:00 09/11/17 08:59 08/18/17 08:56 Hydralazine HCl (Apresoline) 25 mg Q6HR ORAL 08/11/17 12:00 09/10/17 11:59 08/18/17 12:16 Metoprolol Tartrate (Lopressor) 25 mg Q12HR ORAL 08/11/17 21:00 09/10/17 20:59 08/18/17 08:57 Mirtazapine (Remeron) 15 mg BEDTIME ORAL 08/11/17 21:00 09/10/17 20:59 08/17/17 21:04 Ondansetron HCl (Zofran) 4 mg Q6H PRN IVP Nausea & Vomiting 08/11/17 09:30 09/10/17 09:29 Polyethylene Glycol (Miralax) 17 gm DAILYPRN PRN ORAL Constipation 08/11/17 09:30 09/10/17 09:29 08/17/17 17:28 Promethazine HCl/ Codeine (Phenergan with Codeine) 5 ml Q4H PRN ORAL For Cough 08/11/17 14:00 09/10/17 13:59 08/18/17 08:55 Risperidone (RisperDAL) 0.25 mg BID ORAL 08/11/17 18:00 09/10/17 17:59 08/18/17 08:56 Rivaroxaban (Xarelto) 10 mg DAILY ORAL 08/12/17 09:00 09/11/17 08:59 08/18/17 08:56 Solifenacin (Vesicare) 10 mg DAILY ORAL 08/12/17 11:00 09/11/17 10:59 08/18/17 08:56 Vancomycin HCl (Vanco rx to dose) 1 ea DAILY PRN MISC Per rx protocol 08/12/17 12:45 4/12/18 12:44 Vancomycin HCl/ Dextrose 250 ml @ 125 mls/hr Q24H IVPB 08/18/17 09:00 08/23/17 08:59 08/18/17 10:03 Zolpidem Tartrate (Ambien) 5 mg HSPRN PRN ORAL Insomnia 08/15/17 00:00 08/22/17 00:00 08/17/17 22:43 Danica Nayak M.D. Aug 18, 2017 13:02
[2017-08-18] MEDS ORDERED: DAPTOmycin 500 MG in NS 55 ML IV ONE ×2 (14:30→18:30)
[2017-08-18 16:00] VITALS: BP 136/70
--- NOTE | 2017-08-18 19:49 | Cardiology Progress Note ---
Assessment/Plan Assessment/Plan 1. Bacteremia, reportedly coag-negative Staph. 2. Questionable influenza infection. 3. Urinary tract infection. 4. Atrial fibrillation, flutter history. 5. History of leadless pacemaker implantation damian planned for tomorrow informed consent obtianed npo pas md akins Subjective Cardiovascular: Denies: chest pain Respiratory: Denies: shortness of breath Objective Last 24 Hour Vital Signs Date Time Temp Pulse Resp B/P (MAP) Pulse Ox O2 Delivery O2 Flow Rate FiO2 08/18/17 17:56 136/70 08/18/17 16:00 97.9 110 18 136/70 99 Room Air 97.9 08/18/17 12:16 147/73 08/18/17 12:13 98.6 63 17 147/73 98 Room Air 98.6 08/18/17 08:57 99 147/76 08/18/17 07:06 98.3 82 19 138/79 94 98.3 08/18/17 06:52 175/71 08/18/17 00:18 175/71 08/18/17 00:00 97.0 76 20 146/73 84 97.0 08/18/17 00:00 94 Room Air 08/17/17 21:04 68 158/68 08/17/17 20:00 97.3 68 20 158/68 98 97.3 08/17/17 20:00 98 Room Air General Appearance: no apparent distress Intake and Output 08/17/17 08/18/17 19:00 07:00 Intake Total 642.5 ml Balance 642.5 ml Intake Oral 480 ml IV Total 162.5 ml # Voids 1 2 Laboratory Tests Test 08/18/17 05:45 White Blood Count 10.5 K/UL (4.8-10.8) Red Blood Count 3.41 M/UL (4.20-5.40) L Hemoglobin 12.2 G/DL (12.0-16.0) Hematocrit 32.0 % (37.0-47.0) L Mean Corpuscular Volume 94 FL (80-99) Mean Corpuscular Hemoglobin 35.8 PG (27.0-31.0) H Mean Corpuscular Hemoglobin Concent 38.2 G/DL (32.0-36.0) H Red Cell Distribution Width 13.6 % (11.6-14.8) Platelet Count 187 K/UL (150-450) Mean Platelet Volume 6.7 FL (6.5-10.1) Neutrophils (%) (Auto) 71.9 % (45.0-75.0) Lymphocytes (%) (Auto) 14.9 % (20.0-45.0) L Monocytes (%) (Auto) 6.1 % (1.0-10.0) Eosinophils (%) (Auto) 6.2 % (0.0-3.0) H Basophils (%) (Auto) 1.0 % (0.0-2.0) Sodium Level 137 MMOL/L (136-145) Potassium Level 4.4 MMOL/L (3.5-5.1) Chloride Level 99 MMOL/L (98-107) Carbon Dioxide Level 34 MMOL/L (21-32) H Anion Gap 4 mmol/L (5-15) L Blood Urea Nitrogen 13 mg/dL (7-18) Creatinine 0.5 MG/DL (0.55-1.30) L Estimat Glomerular Filtration Rate mL/min (>60) Glucose Level 74 MG/DL (74-106) Calcium Level 8.5 MG/DL (8.5-10.1) Phosphorus Level 4.6 MG/DL (2.5-4.9) Magnesium Level 2.1 MG/DL (1.8-2.4) Total Bilirubin 0.4 MG/DL (0.2-1.0) Aspartate Amino Transf (AST/SGOT) 40 U/L (15-37) H Alanine Aminotransferase (ALT/SGPT) 24 U/L (12-78) Alkaline Phosphatase 48 U/L (46-116) Total Protein 6.2 G/DL (6.4-8.2) L Albumin 2.6 G/DL (3.4-5.0) L Globulin 3.6 g/dL Albumin/Globulin Ratio 0.7 (1.0-2.7) L ABY SCHWARTZ Aug 18, 2017 19:49
[2017-08-18 20:00] VITALS: BP 127/73
--- NOTE | 2017-08-18 20:37 | Pulmonology Progress Note ---
Assessment/Plan Problems: (1) Bacteremia (2) Healthcare-associated pneumonia (3) COPD (chronic obstructive pulmonary disease) (4) Failure to thrive (5) Seizure disorder (6) Wheelchair bound (7) Bipolar depression (8) Cerebral vascular disease Assessment/Plan JIMY scheduled for tomorrow persistent bacteremia last BC from 08/14 are negative getting better continue abx respiratory treatment titrate fio2 to sat of 92% psych evaluation check blood cultures improving clinically check labs in am Subjective ROS Limited/Unobtainable: Yes Allergies: Coded Allergies: NO KNOWN DRUG ALLERGIES (Unverified Allergy, Unknown, 07/11/15) Objective Last 24 Hour Vital Signs Date Time Temp Pulse Resp B/P (MAP) Pulse Ox O2 Delivery O2 Flow Rate FiO2 08/18/17 17:56 136/70 08/18/17 16:00 97.9 110 18 136/70 99 Room Air 97.9 08/18/17 12:16 147/73 08/18/17 12:13 98.6 63 17 147/73 98 Room Air 98.6 08/18/17 08:57 99 147/76 08/18/17 07:06 98.3 82 19 138/79 94 98.3 08/18/17 06:52 175/71 08/18/17 00:18 175/71 08/18/17 00:00 97.0 76 20 146/73 84 97.0 08/18/17 00:00 94 Room Air 08/17/17 21:04 68 158/68 Intake and Output 08/17/17 08/18/17 19:00 07:00 Intake Total 642.5 ml Balance 642.5 ml Intake Oral 480 ml IV Total 162.5 ml # Voids 1 2 Objective General Appearance: cachectic HEENT: normocephalic, atraumatic, anicteric Respiratory/Chest: chest wall non-tender, rhonchi L>R Breasts: no masses Cardiovascular: normal peripheral pulses Abdomen: normal bowel sounds Genitourinary: normal external genitalia Laboratory Tests 08/18/17 05:45: White Blood Count 10.5, Red Blood Count 3.41L, Hemoglobin 12.2, Hematocrit 32.0L , Mean Corpuscular Volume 94, Mean Corpuscular Hemoglobin 35.8H, Mean Corpuscular Hemoglobin Concent 38.2H, Red Cell Distribution Width 13.6, Platelet Count 187, Mean Platelet Volume 6.7, Neutrophils (%) (Auto) 71.9, Lymphocytes (%) (Auto) 14.9L, Monocytes (%) (Auto) 6.1, Eosinophils (%) (Auto) 6.2H, Basophils (%) (Auto) 1.0, Sodium Level 137, Potassium Level 4.4, Chloride Level 99, Carbon Dioxide Level 34H, Anion Gap 4L, Blood Urea Nitrogen 13, Creatinine 0.5L, Estimat Glomerular Filtration Rate , Glucose Level 74, Calcium Level 8.5, Phosphorus Level 4.6, Magnesium Level 2.1, Total Bilirubin 0.4, Aspartate Amino Transf (AST/SGOT) 40H, Alanine Aminotransferase (ALT/SGPT) 24, Alkaline Phosphatase 48, Total Protein 6.2L, Albumin 2.6L, Globulin 3.6, Albumin /Globulin Ratio 0.7L Current Medications Medications (Trade) Dose Ordered Sig/Ibrahima Route PRN Reason Start Time Stop Time Status Last Admin Dose Admin Acetaminophen (Tylenol) 650 mg Q4H PRN ORAL FEVER>100.5 08/11/17 09:30 09/10/17 09:29 08/15/17 12:39 Allopurinol (Zyloprim) 100 mg DAILY ORAL 08/12/17 10:00 09/11/17 09:59 08/18/17 08:56 Bupropion HCl (Wellbutrin) 100 mg EVERY 12 HOURS ORAL 08/11/17 21:00 09/10/17 20:59 08/18/17 08:56 Calamine (Calamine) 1 applic QIDPRN PRN TOPIC Itching 08/17/17 14:45 09/16/17 14:44 08/18/17 08:58 Clotrimazole (Lotrimin) 1 applic EVERY 12 HOURS TOPIC 08/13/17 13:00 09/12/17 12:59 08/18/17 08:58 Dextrose (Dextrose 50%) STAT PRN IV Hypoglycemia 08/11/17 09:30 09/10/17 09:29 Diphenhydramine HCl (Benadryl) 25 mg Q6H PRN ORAL Itching 08/17/17 14:45 09/16/17 14:44 08/17/17 16:02 Divalproex Sodium (Depakote) 250 mg EVERY 12 HOURS ORAL 08/11/17 21:00 09/10/17 20:59 08/18/17 08:55 Furosemide (Lasix) 40 mg DAILY ORAL 08/12/17 09:00 09/11/17 08:59 08/18/17 08:56 Hydralazine HCl (Apresoline) 25 mg Q6HR ORAL 08/11/17 12:00 09/10/17 11:59 08/18/17 17:56 Metoprolol Tartrate (Lopressor) 25 mg Q12HR ORAL 08/11/17 21:00 09/10/17 20:59 08/18/17 08:57 Mirtazapine (Remeron) 15 mg BEDTIME ORAL 08/11/17 21:00 09/10/17 20:59 08/17/17 21:04 Ondansetron HCl (Zofran) 4 mg Q6H PRN IVP Nausea & Vomiting 08/11/17 09:30 09/10/17 09:29 Polyethylene Glycol (Miralax) 17 gm DAILYPRN PRN ORAL Constipation 08/11/17 09:30 09/10/17 09:29 08/17/17 17:28 Promethazine HCl/ Codeine (Phenergan with Codeine) 5 ml Q4H PRN ORAL For Cough 08/11/17 14:00 09/10/17 13:59 08/18/17 08:55 Risperidone (RisperDAL) 0.25 mg BID ORAL 08/11/17 18:00 09/10/17 17:59 08/18/17 17:56 Rivaroxaban (Xarelto) 10 mg DAILY ORAL 08/12/17 09:00 09/11/17 08:59 08/18/17 08:56 Solifenacin (Vesicare) 10 mg DAILY ORAL 08/12/17 11:00 09/11/17 10:59 08/18/17 08:56 Vancomycin HCl (Vanco rx to dose) 1 ea DAILY PRN MISC Per rx protocol 08/12/17 12:45 09/11/17 12:44 Vancomycin HCl/ Dextrose 250 ml @ 125 mls/hr Q24H IVPB 08/18/17 09:00 08/23/17 08:59 08/18/17 10:03 Zolpidem Tartrate (Ambien) 5 mg HSPRN PRN ORAL Insomnia 08/15/17 00:00 08/22/17 00:00 08/17/17 22:43 Mendel Sierra MD Aug 18, 2017 20:37
[2017-08-19] VITALS (10 sets, daily range): BP systolic 120–188; BP diastolic 51–94
[2017-08-19] MEDS: HydrALAZINE 25mg tab ORAL SCH ×4 (00:57→17:50)
[2017-08-19] MEDS ORDERED: Lidocaine 1% MPF 10mg/ml 5ml ONE (08:00)
[2017-08-19] MEDS ORDERED: Propofol 200mg/20ml IV ONE (08:00)
[2017-08-19] MEDS: Xarelto 10mg tab ORAL SCH (09:00)
[2017-08-19] MEDS: Furosemide 40mg tab ORAL SCH (09:00)
[2017-08-19] MEDS: Allopurinol 100mg Tab ORAL SCH (09:00)
[2017-08-19] MEDS: Vancomycin 1.5 GM/D5W 250ML IVPB SCH (09:01)
[2017-08-19 09:20] LABS: EOSINOPHILS % (AUTO) 5.7 % (0.0-3.0); HEMATOCRIT 37.1 % (37.0-47.0); HEMOGLOBIN 12.8 G/DL (12.0-16.0); LYMPHOCYTES % (AUTO) 16.2 % (20.0-45.0); MEAN CORPUSCULAR VOLUME 95 FL (80-99); NEUTROPHILS % (AUTO) 72.2 % (45.0-75.0); PLATELET COUNT 163 K/UL (150-450); RED BLOOD COUNT 3.91 M/UL (4.20-5.40); RED CELL DISTRIBUTION WIDTH 13.7 % (11.6-14.8); WHITE BLOOD COUNT 9.9 K/UL (4.8-10.8)
[2017-08-19] MEDS: Metoprolol 25mg tab ORAL SCH ×2 (09:58→20:30)
[2017-08-19 10:05] LABS: ALANINE AMINOTRANSFERASE 22 U/L (12-78); ALBUMIN 2.5 G/DL (3.4-5.0); ALBUMIN/GLOBULIN RATIO 0.7 (1.0-2.7); ALKALINE PHOSPHATASE 48 U/L (46-116); ANION GAP 9 mmol/L (5-15); ASPARTATE AMINO TRANSFERASE 19 U/L (15-37); BILIRUBIN,TOTAL 0.4 MG/DL (0.2-1.0); BLOOD UREA NITROGEN 15 mg/dL (7-18); CALCIUM 8.6 MG/DL (8.5-10.1); CARBON DIOXIDE 30 MMOL/L (21-32); CHLORIDE 97 MMOL/L (98-107); CREATININE 0.7 MG/DL (0.55-1.30); PHOSPHORUS 4.2 MG/DL (2.5-4.9); POTASSIUM 3.8 MMOL/L (3.5-5.1); SODIUM 136 MMOL/L (136-145)
--- NOTE | 2017-08-19 11:12 | Anethesia Preoperative Eval ---
Anesthesia Pre-op PMH/ROS General Date of Evaluation: Aug 19, 2017 Anesthesiologist: Yobani ASA Score: ASA 4 Mallampati Score Class I : Soft palate, uvula, fauces, pillars visible Class II: Soft palate, uvula, fauces visible Class III: Soft palate, base of uvula visible Class IV: Only hard plate visible Mallampati Classification: Class II Surgeon: Delta Diagnosis: ? Endocarditis Surgical Procedure: JIMY Anesthesia History: none Social History: current smoker, alcohol use - alcohol abuse Family History: no anesthesia problems Allergies: Coded Allergies: NO KNOWN DRUG ALLERGIES (Unverified Allergy, Unknown, 07/11/15) Medications: see eMAR Past Medical History Cardiovascular: Reports: HTN, CAD - s/p stent, PR, arrhythmia - afib, long QT, other - pacemaker-? lead disconnect; CHF, severe pulmonary HTN Pulmonary: Reports: COPD Gastrointestinal/Genitourinary: Reports: GERD Neurologic/Psychiatric: Reports: dementia, CVA, depression/anxiety, other - h/ o epilepsy, bipolar Hematology/Immune: Reports: anemia, other - bacteremia Musculoskeletal/Integumentary: Reports: OA, other - gout Other: obesity PSxH Narrative: Bilateral hip replacements Anesthesia Pre-op Phys. Exam Physician Exam Last Vital Signs Date Time Temp Pulse Resp B/P (MAP) Pulse Ox O2 Delivery O2 Flow Rate FiO2 08/19/17 09:58 107 151/94 08/19/17 08:00 98.4 18 95 Room Air 98.4 08/14/17 16:00 2.0 08/11/17 06:23 28 Constitutional: NAD Cardiovascular: other - distant breath sounds Respiratory: CTA Airway Exam Mallampati Score: Class II MO: full ROM: full Anesthesia Pre-op A/P Labs Hematology Test 08/19/17 09:00 White Blood Count 9.9 K/UL (4.8-10.8) Red Blood Count 3.91 M/UL (4.20-5.40) L Hemoglobin 12.8 G/DL (12.0-16.0) Hematocrit 37.1 % (37.0-47.0) Mean Corpuscular Volume 95 FL (80-99) Mean Corpuscular Hemoglobin 32.7 PG (27.0-31.0) H Mean Corpuscular Hemoglobin Concent 34.5 G/DL (32.0-36.0) Red Cell Distribution Width 13.7 % (11.6-14.8) Platelet Count 163 K/UL (150-450) Mean Platelet Volume 7.1 FL (6.5-10.1) Neutrophils (%) (Auto) 72.2 % (45.0-75.0) Lymphocytes (%) (Auto) 16.2 % (20.0-45.0) L Monocytes (%) (Auto) 5.0 % (1.0-10.0) Eosinophils (%) (Auto) 5.7 % (0.0-3.0) H Basophils (%) (Auto) 1.0 % (0.0-2.0) Erythrocyte Sedimentation Rate 30 MM/HR (0-30) Chemistry Test 08/19/17 09:00 Sodium Level 136 MMOL/L (136-145) Potassium Level 3.8 MMOL/L (3.5-5.1) Chloride Level 97 MMOL/L (98-107) L Carbon Dioxide Level 30 MMOL/L (21-32) Anion Gap 9 mmol/L (5-15) Blood Urea Nitrogen 15 mg/dL (7-18) Creatinine 0.7 MG/DL (0.55-1.30) Estimat Glomerular Filtration Rate mL/min (>60) Glucose Level 91 MG/DL (74-106) Calcium Level 8.6 MG/DL (8.5-10.1) Phosphorus Level 4.2 MG/DL (2.5-4.9) Magnesium Level 1.9 MG/DL (1.8-2.4) Total Bilirubin 0.4 MG/DL (0.2-1.0) Aspartate Amino Transf (AST/SGOT) 19 U/L (15-37) Alanine Aminotransferase (ALT/SGPT) 22 U/L (12-78) Alkaline Phosphatase 48 U/L (46-116) Total Protein 6.2 G/DL (6.4-8.2) L Albumin 2.5 G/DL (3.4-5.0) L Globulin 3.7 g/dL Albumin/Globulin Ratio 0.7 (1.0-2.7) L Studies Pre-op Studies: EKG - sr Risk Assessment & Plan Assessment: ASA IV Plan: MAC Status Change Before Surgery: No Pre-Antibiotics Drug: N/A COHEN,BENNIE M.D. Aug 19, 2017 11:12
--- NOTE | 2017-08-19 12:02 | Infectious Diseases Prog Note ---
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 No central lines or PPM present. -bcx 08/11 1/4 CoNS; 08/12/ S. hominis; Bcx 08/14 NTD -2d echo: ecogenic material on MV leaftlest- calcification vs vegetation. Moderate mitral regurgitation HOWEVER IN LIGHT OF VALVE CALCIFICATION VALDO DEGREE OF MR MAY BE MASKED BY THE CALCIFICATION Cough/fever- suspect influenza despite neg screen test; possible PNA vs pulmonary congestion; s/p Rx -no fever here so far -CXR: Left pleural effusion, new since 09/04/2016 Mild interstitial congestion - no leukocytosis Leukocytosis , resolved Pyuria/assymptomatic bacteriuria- no UTI symptoms -ucx >100K E.coli (S ceftraxone) HTN COPD long QT syndrome Aflutter CAD s/p stent ETOH abuse s/p b/l hip replacement CVA seizure disorder assisted resident Plan: -Continue IV Vancomcyin # 8 for persistent bacteremia; duration to follow pending JIMY -if Neg JIMY, then 2 weeks of IV vancomycin from 08/14; if positive then 6 weeks from 08/14 -08/18 SP Daptomycin x1 -08/16 SP Ceftriaxone #5, Tamiflu #5 -08/11 SP IV Vancomycin #1, Cefepime #1, Levaquin x1 f/u repeat Bcx 08/14 -JIMY today -will ask micro lab to ID CoNS Bcx 08/11 -Monitor CBC/BMP, temperatures -aspiration precautions Subjective Allergies: Coded Allergies: NO KNOWN DRUG ALLERGIES (Unverified Allergy, Unknown, 07/11/15) Subjective afebrile no leukocytosis repeat Bcx 08/14 NTD For JIMY today Objective Vital Signs Last 24 Hour Vital Signs Date Time Temp Pulse Resp B/P (MAP) Pulse Ox O2 Delivery O2 Flow Rate FiO2 08/19/17 09:58 107 151/94 08/19/17 08:00 98.4 107 18 151/94 95 Room Air 98.4 08/19/17 05:53 124/86 08/19/17 04:00 96.3 105 20 124/86 93 Room Air 96.3 08/19/17 00:57 136/55 08/19/17 00:00 98.1 64 20 136/88 94 Room Air 98.1 08/18/17 20:48 112 127/73 08/18/17 20:00 97.7 112 20 127/73 92 Room Air 97.7 08/18/17 17:56 136/70 08/18/17 16:00 97.9 110 18 136/70 99 Room Air 97.9 08/18/17 12:16 147/73 08/18/17 12:13 98.6 63 17 147/73 98 Room Air 98.6 Height (Feet): 5 Height (Inches): 0.00 Weight (Pounds): 179 Objective General Appearance: WD/WN, cachetic Lines, tubes and drains: peripheral HEENT: normocephalic, atraumatic Neck: non-tender, supple Respiratory/Chest: rhonchi - bilaterally, rhonchi - right Cardiovascular/Chest: normal peripheral pulses, normal rate Genitourinary/Rectal: normal genital exam, heme negative stool Extremities: non-tender Neurologic: wheel roller II-XII grossly normal Laboratory Tests Test 08/19/17 09:00 White Blood Count 9.9 K/UL (4.8-10.8) Red Blood Count 3.91 M/UL (4.20-5.40) L Hemoglobin 12.8 G/DL (12.0-16.0) Hematocrit 37.1 % (37.0-47.0) Mean Corpuscular Volume 95 FL (80-99) Mean Corpuscular Hemoglobin 32.7 PG (27.0-31.0) H Mean Corpuscular Hemoglobin Concent 34.5 G/DL (32.0-36.0) Red Cell Distribution Width 13.7 % (11.6-14.8) Platelet Count 163 K/UL (150-450) Mean Platelet Volume 7.1 FL (6.5-10.1) Neutrophils (%) (Auto) 72.2 % (45.0-75.0) Lymphocytes (%) (Auto) 16.2 % (20.0-45.0) L Monocytes (%) (Auto) 5.0 % (1.0-10.0) Eosinophils (%) (Auto) 5.7 % (0.0-3.0) H Basophils (%) (Auto) 1.0 % (0.0-2.0) Erythrocyte Sedimentation Rate 30 MM/HR (0-30) Sodium Level 136 MMOL/L (136-145) Potassium Level 3.8 MMOL/L (3.5-5.1) Chloride Level 97 MMOL/L (98-107) L Carbon Dioxide Level 30 MMOL/L (21-32) Anion Gap 9 mmol/L (5-15) Blood Urea Nitrogen 15 mg/dL (7-18) Creatinine 0.7 MG/DL (0.55-1.30) Estimat Glomerular Filtration Rate mL/min (>60) Glucose Level 91 MG/DL (74-106) Calcium Level 8.6 MG/DL (8.5-10.1) Phosphorus Level 4.2 MG/DL (2.5-4.9) Magnesium Level 1.9 MG/DL (1.8-2.4) Total Bilirubin 0.4 MG/DL (0.2-1.0) Aspartate Amino Transf (AST/SGOT) 19 U/L (15-37) Alanine Aminotransferase (ALT/SGPT) 22 U/L (12-78) Alkaline Phosphatase 48 U/L (46-116) Total Protein 6.2 G/DL (6.4-8.2) L Albumin 2.5 G/DL (3.4-5.0) L Globulin 3.7 g/dL Albumin/Globulin Ratio 0.7 (1.0-2.7) L Current Medications Medications (Trade) Dose Ordered Sig/Ibrahima Route PRN Reason Start Time Stop Time Status Last Admin Dose Admin Acetaminophen (Tylenol) 650 mg Q4H PRN ORAL FEVER>100.5 08/11/17 09:30 09/10/17 09:29 08/18/17 20:50 Allopurinol (Zyloprim) 100 mg DAILY ORAL 08/12/17 10:00 09/11/17 09:59 08/18/17 08:56 Bupropion HCl (Wellbutrin) 100 mg EVERY 12 HOURS ORAL 08/11/17 21:00 09/10/17 20:59 08/19/17 09:57 Calamine (Calamine) 1 applic QIDPRN PRN TOPIC Itching 08/17/17 14:45 09/16/17 14:44 08/18/17 08:58 Clotrimazole (Lotrimin) 1 applic EVERY 12 HOURS TOPIC 08/13/17 13:00 09/12/17 12:59 08/19/17 09:58 Dextrose (Dextrose 50%) STAT PRN IV Hypoglycemia 08/11/17 09:30 09/10/17 09:29 Diphenhydramine HCl (Benadryl) 25 mg Q6H PRN ORAL Itching 08/17/17 14:45 09/16/17 14:44 08/17/17 16:02 Divalproex Sodium (Depakote) 250 mg EVERY 12 HOURS ORAL 08/11/17 21:00 09/10/17 20:59 08/19/17 09:57 Furosemide (Lasix) 40 mg DAILY ORAL 08/12/17 09:00 09/11/17 08:59 08/18/17 08:56 Hydralazine HCl (Apresoline) 25 mg Q6HR ORAL 08/11/17 12:00 09/10/17 11:59 08/19/17 00:57 Metoprolol Tartrate (Lopressor) 25 mg Q12HR ORAL 08/11/17 21:00 09/10/17 20:59 08/19/17 09:58 Mirtazapine (Remeron) 15 mg BEDTIME ORAL 08/11/17 21:00 09/10/17 20:59 08/18/17 20:48 Ondansetron HCl (Zofran) 4 mg Q6H PRN IVP Nausea & Vomiting 08/11/17 09:30 09/10/17 09:29 Polyethylene Glycol (Miralax) 17 gm DAILYPRN PRN ORAL Constipation 08/11/17 09:30 09/10/17 09:29 08/17/17 17:28 Promethazine HCl/ Codeine (Phenergan with Codeine) 5 ml Q4H PRN ORAL For Cough 08/11/17 14:00 09/10/17 13:59 08/18/17 08:55 Risperidone (RisperDAL) 0.25 mg BID ORAL 08/11/17 18:00 09/10/17 17:59 08/19/17 09:57 Rivaroxaban (Xarelto) 10 mg DAILY ORAL 08/12/17 09:00 09/11/17 08:59 08/18/17 08:56 Solifenacin (Vesicare) 10 mg DAILY ORAL 08/12/17 11:00 09/11/17 10:59 08/18/17 08:56 Vancomycin HCl (Vanco rx to dose) 1 ea DAILY PRN MISC Per rx protocol 08/12/17 12:45 09/11/17 12:44 Vancomycin HCl/ Dextrose 250 ml @ 125 mls/hr Q24H IVPB 08/18/17 09:00 08/23/17 08:59 08/19/17 09:01 Zolpidem Tartrate (Ambien) 5 mg HSPRN PRN ORAL Insomnia 08/15/17 00:00 08/22/17 00:00 08/17/17 22:43 Danica Nayak M.D. Aug 19, 2017 12:02
--- NOTE | 2017-08-19 13:19 | Immediate Post-Op Evaluation ---
Immediate Post-Op Evalulation Immediate Post-Op Evalulation Procedure: JIMY Date of Evaluation: Aug 19, 2017 Time of Evaluation: 14:10 IV Fluids: 200 Blood Products: 0 Estimated Blood Loss: 0 Urinary Output: 0 Blood Pressure Systolic: 142 Blood Pressure Diastolic: 59 Pulse Rate: 60 Respiratory Rate: 18 O2 Sat by Pulse Oximetry: 99 Temperature (Fahrenheit): 97.2 Pain Score (1-10): 0 Nausea: No Vomiting: No Complications 0 Patient Status: awake, reacts, patent, none Hydration Status: adequate Drug: N/A BENNIE COHEN M.D. Aug 19, 2017 13:19
--- NOTE | 2017-08-19 13:20 | 48 Hour Post Anesthesia Eval ---
Post Anesthesia Evaluation Procedure: JIMY Date of Evaluation: Aug 20, 2017 Time of Evaluation: 06:30 Blood Pressure Systolic: 140 0: 76 Pulse Rate: 69 Respiratory Rate: 18 Temperature (Fahrenheit): 98.6 O2 Sat by Pulse Oximetry: 98 Airway: patent Nausea: No Vomiting: No Pain Intensity: 0 Hydration Status: adequate Cardiopulmonary Status: at baseline Mental Status/LOC: patient returned to baseline Post-Anesthesia Complications: 0 Follow-up care needed: N/A - further care as per primary team BENNIE COHEN M.D. Aug 19, 2017 13:20
[2017-08-19] MEDS ORDERED: NS 500ML IV ONE (13:22)
--- NOTE | 2017-08-19 13:34 | Pre-Procedure Note/Attestation ---
Pre-Procedure Note/Attestation Complete Prior to Procedure Procedure Narrative: transesopahgeal echo Indications for Procedure Pre-Operative Diagnosis: bacteremia Attestation I attest that I discussed the nature of the procedure; its benefits; risks and complications; and alternatives (and the risks and benefits of such alternatives ), prior to the procedure, with the patient (or the patient's legal international account representative). I attest that, if there was a reasonable possibility of needing a blood transfusion, the patient (or the patient's legal international account representative) was given the [facility] standardized written summary, pursuant to the Vance Seble Blood Safety Act ([place] Health and Safety Code # 1645, as amended). I attest that I re-evaluated the patient just prior to the surgery and that there has been no change in the patient's H&P, except as documented below: ABY SCHWARTZ Aug 19, 2017 13:34
--- NOTE | 2017-08-19 13:54 | Cardiology Progress Note ---
Assessment/Plan Assessment/Plan 1. Bacteremia, reportedly coag-negative Staph. 2. Questionable influenza infection. 3. Urinary tract infection. 4. Atrial fibrillation, flutter history. 5. History of leadless pacemaker implantation damian planned for today informed consent obtianed has been npo confirmed labs form to day noted addendum damian neg for vegetations Subjective Cardiovascular: Reports: chest pain Respiratory: Reports: shortness of breath, SOB with excertion Gastrointestinal/Abdominal: Reports: abdominal pain Genitourinary: Reports: burning Objective Last 24 Hour Vital Signs Date Time Temp Pulse Resp B/P (MAP) Pulse Ox O2 Delivery O2 Flow Rate FiO2 08/19/17 12:55 188/61 08/19/17 12:00 98.2 61 20 188/61 95 Room Air 98.2 08/19/17 09:58 107 151/94 08/19/17 08:00 98.4 107 18 151/94 95 Room Air 98.4 08/19/17 05:53 124/86 08/19/17 04:00 96.3 105 20 124/86 93 Room Air 96.3 08/19/17 00:57 136/55 08/19/17 00:00 98.1 64 20 136/88 94 Room Air 98.1 08/18/17 20:48 112 127/73 08/18/17 20:00 97.7 112 20 127/73 92 Room Air 97.7 08/18/17 17:56 136/70 08/18/17 16:00 97.9 110 18 136/70 99 Room Air 97.9 General Appearance: no apparent distress Neck: supple Cardiovascular: normal rate, regular rhythm Respiratory/Chest: lungs clear Abdomen: normal bowel sounds, non tender, soft Extremities: no swelling Intake and Output 08/18/17 08/19/17 19:00 07:00 # Voids 4 3 # Bowel Movements 1 Laboratory Tests Test 08/19/17 09:00 White Blood Count 9.9 K/UL (4.8-10.8) Red Blood Count 3.91 M/UL (4.20-5.40) L Hemoglobin 12.8 G/DL (12.0-16.0) Hematocrit 37.1 % (37.0-47.0) Mean Corpuscular Volume 95 FL (80-99) Mean Corpuscular Hemoglobin 32.7 PG (27.0-31.0) H Mean Corpuscular Hemoglobin Concent 34.5 G/DL (32.0-36.0) Red Cell Distribution Width 13.7 % (11.6-14.8) Platelet Count 163 K/UL (150-450) Mean Platelet Volume 7.1 FL (6.5-10.1) Neutrophils (%) (Auto) 72.2 % (45.0-75.0) Lymphocytes (%) (Auto) 16.2 % (20.0-45.0) L Monocytes (%) (Auto) 5.0 % (1.0-10.0) Eosinophils (%) (Auto) 5.7 % (0.0-3.0) H Basophils (%) (Auto) 1.0 % (0.0-2.0) Erythrocyte Sedimentation Rate 30 MM/HR (0-30) Sodium Level 136 MMOL/L (136-145) Potassium Level 3.8 MMOL/L (3.5-5.1) Chloride Level 97 MMOL/L (98-107) L Carbon Dioxide Level 30 MMOL/L (21-32) Anion Gap 9 mmol/L (5-15) Blood Urea Nitrogen 15 mg/dL (7-18) Creatinine 0.7 MG/DL (0.55-1.30) Estimat Glomerular Filtration Rate mL/min (>60) Glucose Level 91 MG/DL (74-106) Calcium Level 8.6 MG/DL (8.5-10.1) Phosphorus Level 4.2 MG/DL (2.5-4.9) Magnesium Level 1.9 MG/DL (1.8-2.4) Total Bilirubin 0.4 MG/DL (0.2-1.0) Aspartate Amino Transf (AST/SGOT) 19 U/L (15-37) Alanine Aminotransferase (ALT/SGPT) 22 U/L (12-78) Alkaline Phosphatase 48 U/L (46-116) Total Protein 6.2 G/DL (6.4-8.2) L Albumin 2.5 G/DL (3.4-5.0) L Globulin 3.7 g/dL Albumin/Globulin Ratio 0.7 (1.0-2.7) L ABY SCHWARTZ 20, 2018 13:54
--- NOTE | 2017-08-19 14:01 | Brief Operative Note ---
Immediate Post Operative Note Operative Note Pre-op Diagnosis: bacteremia Procedure: JIMY with pw, color flwo [id number] imaging dictated [id number] Post-op Diagnosis: same as pre-op Findings: other - no vegetaqtion thickended mv adn av leaflets Anesthesia: moderate sedation Specimen: none Complications: none Condition: stable Fluids: none Estimated Blood Loss: none Drains: none Implant(s) used?: No ABY SCHWARTZ Aug 19, 2017 14:01
[2017-08-19] MEDS ORDERED: LR 1000ml 1,000 ML IVLG SCH (14:08)
[2017-08-19] MEDS ORDERED: DiphenhydrAMINE 50mg/ml Inj IVP PRN (14:15)
[2017-08-19] MEDS: Norco 5mg/325mg tab ORAL PRN (16:13)
--- NOTE | 2017-08-19 17:03 | Pulmonology Progress Note ---
Assessment/Plan Problems: (1) Bacteremia (2) Healthcare-associated pneumonia (3) COPD (chronic obstructive pulmonary disease) (4) Failure to thrive (5) Seizure disorder (6) Wheelchair bound (7) Bipolar depression (8) Cerebral vascular disease Assessment/Plan JIMY done, negative persistent bacteremia last BC from 08/14 are negative getting better continue abx for total to two weeks. respiratory treatment titrate fio2 to sat of 92% psych evaluation check blood cultures improving clinically check labs in am Subjective ROS Limited/Unobtainable: No Allergies: Coded Allergies: NO KNOWN DRUG ALLERGIES (Unverified Allergy, Unknown, 07/11/15) Objective Last 24 Hour Vital Signs Date Time Temp Pulse Resp B/P (MAP) Pulse Ox O2 Delivery O2 Flow Rate FiO2 08/19/17 16:13 97.8 08/19/17 14:30 97.8 60 16 141/51 99 Nasal Cannula 3.0 97.8 08/19/17 14:20 60 16 148/56 99 Nasal Cannula 3.0 08/19/17 14:10 63 21 134/58 99 Room Air 08/19/17 14:08 207.0 60 18 99 08/19/17 14:05 97.2 63 24 142/59 99 Room Air 97.2 08/19/17 12:55 188/61 08/19/17 12:00 98.2 61 20 188/61 95 Room Air 98.2 08/19/17 09:58 107 151/94 08/19/17 08:00 98.4 107 18 151/94 95 Room Air 98.4 08/19/17 05:53 124/86 08/19/17 04:00 96.3 105 20 124/86 93 Room Air 96.3 08/19/17 00:57 136/55 08/19/17 00:00 98.1 64 20 136/88 94 Room Air 98.1 08/18/17 20:48 112 127/73 08/18/17 20:00 97.7 112 20 127/73 92 Room Air 97.7 08/18/17 17:56 136/70 Intake and Output 08/18/17 08/19/17 19:00 07:00 # Voids 4 3 # Bowel Movements 1 Objective General Appearance: cachectic HEENT: normocephalic, atraumatic, anicteric Respiratory/Chest: chest wall non-tender, rhonchi L>R Breasts: no masses Cardiovascular: normal peripheral pulses Abdomen: normal bowel sounds Genitourinary: normal external genitalia Laboratory Tests 08/19/17 09:00: White Blood Count 9.9, Red Blood Count 3.91L, Hemoglobin 12.8, Hematocrit 37.1, Mean Corpuscular Volume 95, Mean Corpuscular Hemoglobin 32.7H, Mean Corpuscular Hemoglobin Concent 34.5, Red Cell Distribution Width 13.7, Platelet Count 163, Mean Platelet Volume 7.1, Neutrophils (%) (Auto) 72.2, Lymphocytes (%) (Auto) 16.2L, Monocytes (%) (Auto) 5.0, Eosinophils (%) (Auto) 5.7H, Basophils (%) ( Auto) 1.0, Erythrocyte Sedimentation Rate 30, Sodium Level 136, Potassium Level 3.8, Chloride Level 97L, Carbon Dioxide Level 30, Anion Gap 9, Blood Urea Nitrogen 15, Creatinine 0.7, Estimat Glomerular Filtration Rate , Glucose Level 91, Calcium Level 8.6, Phosphorus Level 4.2, Magnesium Level 1.9, Total Bilirubin 0.4, Aspartate Amino Transf (AST/SGOT) 19, Alanine Aminotransferase ( ALT/SGPT) 22, Alkaline Phosphatase 48, Total Protein 6.2L, Albumin 2.5L, Globulin 3.7, Albumin/Globulin Ratio 0.7L Current Medications Medications (Trade) Dose Ordered Sig/Ibrahima Route PRN Reason Start Time Stop Time Status Last Admin Dose Admin Acetaminophen (Tylenol) 650 mg Q4H PRN ORAL FEVER>100.5 08/11/17 09:30 09/10/17 09:29 08/18/17 20:50 Acetaminophen/ Hydrocodone Bitart ([place] 5/325) 1 tab Q6H PRN ORAL Severe Pain (Pain Scale 7-10) 08/19/17 15:30 08/26/17 15:29 08/19/17 16:13 Allopurinol (Zyloprim) 100 mg DAILY ORAL 08/12/17 10:00 09/11/17 09:59 08/18/17 08:56 Bupropion HCl (Wellbutrin) 100 mg EVERY 12 HOURS ORAL 08/11/17 21:00 09/10/17 20:59 08/19/17 09:57 Calamine (Calamine) 1 applic QIDPRN PRN TOPIC Itching 08/17/17 14:45 09/16/17 14:44 08/18/17 08:58 Clotrimazole (Lotrimin) 1 applic EVERY 12 HOURS TOPIC 08/13/17 13:00 09/12/17 12:59 08/19/17 09:58 Dextrose (Dextrose 50%) STAT PRN IV Hypoglycemia 08/11/17 09:30 09/10/17 09:29 Diphenhydramine HCl (Benadryl) 25 mg Q15M PRN IVP Itching 08/19/17 14:15 08/19/17 20:30 Diphenhydramine HCl (Benadryl) 25 mg Q6H PRN ORAL Itching 08/17/17 14:45 09/16/17 14:44 08/17/17 16:02 Divalproex Sodium (Depakote) 250 mg EVERY 12 HOURS ORAL 08/11/17 21:00 09/10/17 20:59 08/19/17 09:57 Furosemide (Lasix) 40 mg DAILY ORAL 08/12/17 09:00 09/11/17 08:59 08/18/17 08:56 Hydralazine HCl (Apresoline) 5 mg Q30M PRN IV SBP>160 OR___/DBP>90 OR___ 08/19/17 14:15 08/19/17 20:30 Hydralazine HCl (Apresoline) 25 mg Q6HR ORAL 08/11/17 12:00 09/10/17 11:59 08/19/17 12:55 Lactated Ringer's 1,000 ml @ 10 mls/hr Q24H IVLG 08/19/17 14:08 08/19/17 20:30 Metoprolol Tartrate (Lopressor) 25 mg Q12HR ORAL 08/11/17 21:00 09/10/17 20:59 08/19/17 09:58 Mirtazapine (Remeron) 15 mg BEDTIME ORAL 08/11/17 21:00 09/10/17 20:59 08/18/17 20:48 Ondansetron HCl (Zofran) 4 mg Q6H PRN IVP Nausea & Vomiting 08/11/17 09:30 09/10/17 09:29 Polyethylene Glycol (Miralax) 17 gm DAILYPRN PRN ORAL Constipation 08/11/17 09:30 09/10/17 09:29 08/17/17 17:28 Promethazine HCl/ Codeine (Phenergan with Codeine) 5 ml Q4H PRN ORAL For Cough 08/11/17 14:00 09/10/17 13:59 08/18/17 08:55 Risperidone (RisperDAL) 0.25 mg BID ORAL 08/11/17 18:00 09/10/17 17:59 08/19/17 09:57 Rivaroxaban (Xarelto) 10 mg DAILY ORAL 08/12/17 09:00 09/11/17 08:59 08/18/17 08:56 Solifenacin (Vesicare) 10 mg DAILY ORAL 08/12/17 11:00 09/11/17 10:59 08/18/17 08:56 Vancomycin HCl (Vanco rx to dose) 1 ea DAILY PRN MISC Per rx protocol 08/12/17 12:45 09/11/17 12:44 Vancomycin HCl/ Dextrose 250 ml @ 125 mls/hr Q24H IVPB 08/18/17 09:00 08/23/17 08:59 08/19/17 09:01 Zolpidem Tartrate (Ambien) 5 mg HSPRN PRN ORAL Insomnia 08/15/17 00:00 08/22/17 00:00 08/17/17 22:43 Mendel Sierra MD Aug 19, 2017 17:03
--- NOTE | 2017-08-19 20:58 | General Progress Note ---
Assessment/Plan Assessment/Plan anxiety mdd -cont remeron -cont ativan -cont risperdal Subjective Date patient seen: Aug 19, 2017 Neurologic/Psychiatric: Reports: anxiety, depressed, emotional problems Allergies: Coded Allergies: NO KNOWN DRUG ALLERGIES (Unverified Allergy, Unknown, 07/11/15) Objective Last 24 Hour Vital Signs Date Time Temp Pulse Resp B/P (MAP) Pulse Ox O2 Delivery O2 Flow Rate FiO2 08/19/17 20:30 69 142/63 08/19/17 20:00 98.2 69 22 142/63 95 98.2 08/19/17 17:50 120/60 08/19/17 17:31 97.8 08/19/17 16:13 97.8 08/19/17 16:00 97.0 61 20 120/60 Nasal Cannula 3.0 97.0 08/19/17 14:30 97.8 60 16 141/51 99 Nasal Cannula 3.0 97.8 08/19/17 14:20 60 16 148/56 99 Nasal Cannula 3.0 08/19/17 14:10 63 21 134/58 99 Room Air 08/19/17 14:08 207.0 60 18 99 08/19/17 14:05 97.2 63 24 142/59 99 Room Air 97.2 08/19/17 12:55 188/61 08/19/17 12:00 98.2 61 20 188/61 95 Room Air 98.2 08/19/17 09:58 107 151/94 08/19/17 08:00 98.4 107 18 151/94 95 Room Air 98.4 08/19/17 05:53 124/86 08/19/17 04:00 96.3 105 20 124/86 93 Room Air 96.3 08/19/17 00:57 136/55 08/19/17 00:00 98.1 64 20 136/88 94 Room Air 98.1 Intake and Output 08/18/17 08/19/17 19:00 07:00 # Voids 4 3 # Bowel Movements 1 Laboratory Tests 08/19/17 09:00: White Blood Count 9.9, Red Blood Count 3.91L, Hemoglobin 12.8, Hematocrit 37.1, Mean Corpuscular Volume 95, Mean Corpuscular Hemoglobin 32.7H, Mean Corpuscular Hemoglobin Concent 34.5, Red Cell Distribution Width 13.7, Platelet Count 163, Mean Platelet Volume 7.1, Neutrophils (%) (Auto) 72.2, Lymphocytes (%) (Auto) 16.2L, Monocytes (%) (Auto) 5.0, Eosinophils (%) (Auto) 5.7H, Basophils (%) ( Auto) 1.0, Erythrocyte Sedimentation Rate 30, Sodium Level 136, Potassium Level 3.8, Chloride Level 97L, Carbon Dioxide Level 30, Anion Gap 9, Blood Urea Nitrogen 15, Creatinine 0.7, Estimat Glomerular Filtration Rate , Glucose Level 91, Calcium Level 8.6, Phosphorus Level 4.2, Magnesium Level 1.9, Total Bilirubin 0.4, Aspartate Amino Transf (AST/SGOT) 19, Alanine Aminotransferase ( ALT/SGPT) 22, Alkaline Phosphatase 48, Total Protein 6.2L, Albumin 2.5L, Globulin 3.7, Albumin/Globulin Ratio 0.7L Height (Feet): 5 Height (Inches): 0.00 Weight (Pounds): 179 Luiz Morrison M.D. Aug 19, 2017 20:58
[2017-08-20] VITALS: BP 137/70
[2017-08-20] MEDS: HydrALAZINE 25mg tab ORAL SCH ×4 (00:30→18:29)
[2017-08-20] MEDS: Zolpidem 5mg tab ORAL PRN (00:30)
[2017-08-20 04:00] VITALS: BP 140/76
[2017-08-20 08:00] VITALS: BP 150/88
[2017-08-20] MEDS: Furosemide 40mg tab ORAL SCH (09:24)
[2017-08-20] MEDS: Xarelto 10mg tab ORAL SCH (09:24)
[2017-08-20] MEDS: Allopurinol 100mg Tab ORAL SCH (09:24)
[2017-08-20] MEDS: Metoprolol 25mg tab ORAL SCH ×2 (09:25→20:23)
[2017-08-20] MEDS: Vancomycin 1.5 GM/D5W 250ML IVPB SCH (09:32)
[2017-08-20] MEDS: Norco 5mg/325mg tab ORAL PRN (09:34)
--- NOTE | 2017-08-20 11:17 | General Progress Note ---
Assessment/Plan Status: stable, progressing Assessment/Plan anxiety mdd -cont remeron -cont ativan -cont risperdal Subjective Date patient seen: Aug 20, 2017 Neurologic/Psychiatric: Reports: anxiety, depressed, emotional problems Allergies: Coded Allergies: NO KNOWN DRUG ALLERGIES (Unverified Allergy, Unknown, 07/11/15) Subjective the pt is doing well Objective Last 24 Hour Vital Signs Date Time Temp Pulse Resp B/P (MAP) Pulse Ox O2 Delivery O2 Flow Rate FiO2 08/20/17 09:25 77 172/90 08/20/17 08:14 209.5 69 18 98 08/20/17 08:00 97.0 61 18 150/88 98 Room Air 97.0 08/20/17 05:47 140/76 08/20/17 04:00 98.6 69 18 140/76 98 98.6 08/20/17 04:00 98 Room Air 08/20/17 00:30 137/70 08/20/17 00:00 96 Room Air 08/20/17 00:00 98.4 75 20 137/70 96 98.4 08/19/17 20:30 69 142/63 08/19/17 20:00 98.2 69 22 142/63 95 98.2 08/19/17 20:00 95 Room Air 08/19/17 17:50 120/60 08/19/17 17:31 97.8 08/19/17 16:13 97.8 08/19/17 16:00 97.0 61 20 120/60 Nasal Cannula 3.0 97.0 08/19/17 14:30 97.8 60 16 141/51 99 Nasal Cannula 3.0 97.8 08/19/17 14:20 60 16 148/56 99 Nasal Cannula 3.0 08/19/17 14:10 63 21 134/58 99 Room Air 08/19/17 14:08 207.0 60 18 99 08/19/17 14:05 97.2 63 24 142/59 99 Room Air 97.2 08/19/17 12:55 188/61 08/19/17 12:00 98.2 61 20 188/61 95 Room Air 98.2 Intake and Output 08/19/17 08/20/17 19:00 07:00 Intake Total 500 ml 700 ml Balance 500 ml 700 ml Intake Oral 300 ml 700 ml IV Total 200 ml # Voids 3 6 Height (Feet): 5 Height (Inches): 0.00 Weight (Pounds): 179 General Appearance: no apparent distress, alert Neurologic: oriented x 3, responsive, depressed affect Luiz Morrison M.D. Aug 20, 2017 11:17
[2017-08-20 11:58] VITALS: BP 143/64
[2017-08-20 16:00] VITALS: BP 151/69
--- NOTE | 2017-08-20 16:42 | Infectious Diseases Prog Note ---
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 No central lines or PPM present. -bcx 08/11 1/4 S. capitis (final ID resulted on 08/20); 08/12 2/4 S. hominis; Bcx 08/14 Neg -JIMY: no vegetation thickended mv -2d echo: ecogenic material on MV leaftlest- calcification vs vegetation. Moderate mitral regurgitation HOWEVER IN LIGHT OF VALVE CALCIFICATION VALDO DEGREE OF MR MAY BE MASKED BY THE CALCIFICATION Cough/fever- suspect influenza despite neg screen test; possible PNA vs pulmonary congestion; s/p Rx -no fever here so far -CXR: Left pleural effusion, new since 09/04/2016 Mild interstitial congestion - no leukocytosis Leukocytosis , resolved Pyuria/assymptomatic bacteriuria- no UTI symptoms -ucx >100K E.coli (S ceftraxone) HTN COPD long QT syndrome Aflutter CAD s/p stent ETOH abuse s/p b/l hip replacement CVA seizure disorder senior living resident Plan: -Continue IV Vancomcyin # 02/13 for CoNS bacteremia; ok to discharge on this regimen via PIV -weekly CBC/BMP, vanco levels -08/18 SP Daptomycin x1 -08/16 SP Ceftriaxone #5, Tamiflu #5 -08/11 SP IV Vancomycin #1, Cefepime #1, Levaquin x1 -Monitor CBC/BMP, temperatures -aspiration precautions Subjective Allergies: Coded Allergies: NO KNOWN DRUG ALLERGIES (Unverified Allergy, Unknown, 07/11/15) Subjective afebrile no leukocytosis repeat Bcx 08/14 Neg JIMY no vegetation Objective Vital Signs Last 24 Hour Vital Signs Date Time Temp Pulse Resp B/P (MAP) Pulse Ox O2 Delivery O2 Flow Rate FiO2 08/20/17 16:00 97.3 69 21 151/69 99 Nasal Cannula 2.0 97.3 69 08/20/17 12:38 143/64 08/20/17 11:58 97.1 88 23 143/64 95 Nasal Cannula 2.0 97.1 88 08/20/17 09:25 77 172/90 08/20/17 08:14 209.5 69 18 98 08/20/17 08:00 97.0 61 18 150/88 98 Room Air 97.0 08/20/17 05:47 140/76 3/21/18 04:00 98.6 69 18 140/76 98 98.6 08/20/17 04:00 98 Room Air 08/20/17 00:30 137/70 08/20/17 00:00 96 Room Air 08/20/17 00:00 98.4 75 20 137/70 96 98.4 08/19/17 20:30 69 142/63 08/19/17 20:00 98.2 69 22 142/63 95 98.2 08/19/17 20:00 95 Room Air 08/19/17 17:50 120/60 08/19/17 17:31 97.8 Height (Feet): 5 Height (Inches): 0.00 Weight (Pounds): 179 Objective General Appearance: WD/WN, cachetic Lines, tubes and drains: peripheral HEENT: normocephalic, atraumatic Neck: non-tender, supple Respiratory/Chest: rhonchi - bilaterally, rhonchi - right Cardiovascular/Chest: normal peripheral pulses, normal rate Genitourinary/Rectal: normal genital exam, heme negative stool Extremities: non-tender Neurologic: first cook II-XII grossly normal Current Medications Medications (Trade) Dose Ordered Sig/Ibrahima Route PRN Reason Start Time Stop Time Status Last Admin Dose Admin Acetaminophen (Tylenol) 650 mg Q4H PRN ORAL FEVER>100.5 08/11/17 09:30 09/10/17 09:29 08/18/17 20:50 Acetaminophen/ Hydrocodone Bitart ([place] 5/325) 1 tab Q6H PRN ORAL Severe Pain (Pain Scale 7-10) 08/19/17 15:30 08/26/17 15:29 08/20/17 09:34 Allopurinol (Zyloprim) 100 mg DAILY ORAL 08/12/17 10:00 09/11/17 09:59 08/20/17 09:24 Bupropion HCl (Wellbutrin) 100 mg EVERY 12 HOURS ORAL 08/11/17 21:00 09/10/17 20:59 08/20/17 09:24 Calamine (Calamine) 1 applic QIDPRN PRN TOPIC Itching 08/17/17 14:45 09/16/17 14:44 08/18/17 08:58 Clotrimazole (Lotrimin) 1 applic EVERY 12 HOURS TOPIC 08/13/17 13:00 09/12/17 12:59 08/20/17 09:34 Dextrose (Dextrose 50%) STAT PRN IV Hypoglycemia 08/11/17 09:30 09/10/17 09:29 Diphenhydramine HCl (Benadryl) 25 mg Q6H PRN ORAL Itching 08/17/17 14:45 09/16/17 14:44 08/17/17 16:02 Divalproex Sodium (Depakote) 250 mg EVERY 12 HOURS ORAL 08/11/17 21:00 09/10/17 20:59 08/20/17 09:24 Furosemide (Lasix) 40 mg DAILY ORAL 08/12/17 09:00 09/11/17 08:59 08/20/17 09:24 Hydralazine HCl (Apresoline) 25 mg Q6HR ORAL 08/11/17 12:00 09/10/17 11:59 08/20/17 12:38 Metoprolol Tartrate (Lopressor) 25 mg Q12HR ORAL 08/11/17 21:00 09/10/17 20:59 08/20/17 09:25 Mirtazapine (Remeron) 15 mg BEDTIME ORAL 08/11/17 21:00 09/10/17 20:59 08/19/17 20:29 Ondansetron HCl (Zofran) 4 mg Q6H PRN IVP Nausea & Vomiting 08/11/17 09:30 09/10/17 09:29 Polyethylene Glycol (Miralax) 17 gm DAILYPRN PRN ORAL Constipation 08/11/17 09:30 09/10/17 09:29 08/17/17 17:28 Promethazine HCl/ Codeine (Phenergan with Codeine) 5 ml Q4H PRN ORAL For Cough 08/11/17 14:00 09/10/17 13:59 08/18/17 08:55 Risperidone (RisperDAL) 0.25 mg BID ORAL 08/11/17 18:00 09/10/17 17:59 08/20/17 09:24 Rivaroxaban (Xarelto) 10 mg DAILY ORAL 08/12/17 09:00 09/11/17 08:59 08/20/17 09:24 Solifenacin (Vesicare) 10 mg DAILY ORAL 08/12/17 11:00 09/11/17 10:59 08/20/17 09:24 Vancomycin HCl (Vanco rx to dose) 1 ea DAILY PRN MISC Per rx protocol 08/12/17 12:45 09/11/17 12:44 Vancomycin HCl/ Dextrose 250 ml @ 125 mls/hr Q24H IVPB 08/18/17 09:00 08/23/17 08:59 08/20/17 09:32 Zolpidem Tartrate (Ambien) 5 mg HSPRN PRN ORAL Insomnia 08/15/17 00:00 08/22/17 00:00 08/20/17 00:30 Danica Nayak M.D. Aug 20, 2017 16:42
[2017-08-20] MEDS ORDERED: Docusate 100mg cap ORAL PRN (19:00)
[2017-08-20] MEDS ORDERED: Fleet's Enema 133ml RECTAL PRN (19:00)
--- NOTE | 2017-08-20 19:12 | Cardiology Progress Note ---
Assessment/Plan Assessment/Plan 1. Bacteremia, reportedly coag-negative Staph. 2. Questionable influenza infection. 3. Urinary tract infection. 4. Atrial fibrillation, flutter history. 5. History of leadless pacemaker implantation damian neg for vegetations abx per id Subjective Cardiovascular: Denies: chest pain, lightheadedness, palpitations Respiratory: Denies: shortness of breath Objective Last 24 Hour Vital Signs Date Time Temp Pulse Resp B/P (MAP) Pulse Ox O2 Delivery O2 Flow Rate FiO2 08/20/17 18:29 151/69 08/20/17 16:00 97.3 69 21 151/69 99 Nasal Cannula 2.0 97.3 69 08/20/17 12:38 143/64 08/20/17 11:58 97.1 88 23 143/64 95 Nasal Cannula 2.0 97.1 88 08/20/17 09:25 77 172/90 08/20/17 08:14 209.5 69 18 98 08/20/17 08:00 97.0 61 18 150/88 98 Room Air 97.0 08/20/17 05:47 140/76 08/20/17 04:00 98.6 69 18 140/76 98 98.6 08/20/17 04:00 98 Room Air 08/20/17 00:30 137/70 08/20/17 00:00 96 Room Air 08/20/17 00:00 98.4 75 20 137/70 96 98.4 08/19/17 20:30 69 142/63 08/19/17 20:00 98.2 69 22 142/63 95 98.2 08/19/17 20:00 95 Room Air General Appearance: no apparent distress, obese Intake and Output 08/19/17 08/20/17 19:00 07:00 Intake Total 500 ml 700 ml Balance 500 ml 700 ml Intake Oral 300 ml 700 ml IV Total 200 ml # Voids 3 6 ABY SCHWARTZ Aug 20, 2017 19:12
[2017-08-20 20:00] VITALS: BP 162/67
--- NOTE | 2017-08-20 22:06 | Pulmonology Progress Note ---
Assessment/Plan Problems: (1) Bacteremia (2) Healthcare-associated pneumonia (3) COPD (chronic obstructive pulmonary disease) (4) Failure to thrive (5) Seizure disorder (6) Wheelchair bound (7) Bipolar depression (8) Cerebral vascular disease Assessment/Plan JIMY negative persistent bacteremia last BC from 08/14 are negative getting better continue abx for total to two weeks. respiratory treatment titrate fio2 to sat of 92% psych evaluation check blood cultures improving clinically dc planning to a skilled nursing nearby Subjective ROS Limited/Unobtainable: No Allergies: Coded Allergies: NO KNOWN DRUG ALLERGIES (Unverified Allergy, Unknown, 07/11/15) Objective Last 24 Hour Vital Signs Date Time Temp Pulse Resp B/P (MAP) Pulse Ox O2 Delivery O2 Flow Rate FiO2 08/20/17 20:23 75 162/67 08/20/17 20:00 97.3 75 22 162/67 94 97.3 08/20/17 18:29 151/69 08/20/17 16:00 97.3 69 21 151/69 99 Nasal Cannula 2.0 97.3 69 08/20/17 12:38 143/64 08/20/17 11:58 97.1 88 23 143/64 95 Nasal Cannula 2.0 97.1 88 08/20/17 09:25 77 172/90 08/20/17 08:14 209.5 69 18 98 08/20/17 08:00 97.0 61 18 150/88 98 Room Air 97.0 08/20/17 05:47 140/76 08/20/17 04:00 98.6 69 18 140/76 98 98.6 08/20/17 04:00 98 Room Air 08/20/17 00:30 137/70 08/20/17 00:00 96 Room Air 08/20/17 00:00 98.4 75 20 137/70 96 98.4 Intake and Output 08/19/17 08/20/17 19:00 07:00 Intake Total 500 ml 700 ml Balance 500 ml 700 ml Intake Oral 300 ml 700 ml IV Total 200 ml # Voids 3 6 Objective General Appearance: cachectic HEENT: normocephalic, atraumatic, anicteric Respiratory/Chest: chest wall non-tender, rhonchi L>R Breasts: no masses Cardiovascular: normal peripheral pulses Abdomen: normal bowel sounds Genitourinary: normal external genitalia Current Medications Medications (Trade) Dose Ordered Sig/Ibrahima Route PRN Reason Start Time Stop Time Status Last Admin Dose Admin Acetaminophen (Tylenol) 650 mg Q4H PRN ORAL FEVER>100.5 08/11/17 09:30 09/10/17 09:29 08/18/17 20:50 Acetaminophen/ Hydrocodone Bitart ([place] 5/325) 1 tab Q6H PRN ORAL Severe Pain (Pain Scale 7-10) 08/19/17 15:30 08/26/17 15:29 08/20/17 09:34 Allopurinol (Zyloprim) 100 mg DAILY ORAL 08/12/17 10:00 09/11/17 09:59 08/20/17 09:24 Bupropion HCl (Wellbutrin) 100 mg EVERY 12 HOURS ORAL 08/11/17 21:00 09/10/17 20:59 08/20/17 20:24 Calamine (Calamine) 1 applic QIDPRN PRN TOPIC Itching 08/17/17 14:45 09/16/17 14:44 08/18/17 08:58 Clotrimazole (Lotrimin) 1 applic EVERY 12 HOURS TOPIC 08/13/17 13:00 09/12/17 12:59 08/20/17 20:24 Dextrose (Dextrose 50%) STAT PRN IV Hypoglycemia 08/11/17 09:30 09/10/17 09:29 Diphenhydramine HCl (Benadryl) 25 mg Q6H PRN ORAL Itching 08/17/17 14:45 09/16/17 14:44 08/17/17 16:02 Divalproex Sodium (Depakote) 250 mg EVERY 12 HOURS ORAL 08/11/17 21:00 09/10/17 20:59 08/20/17 20:24 Docusate Sodium (Colace) 100 mg TID PRN ORAL Constipation 08/20/17 19:00 09/19/17 18:59 Furosemide (Lasix) 40 mg DAILY ORAL 08/12/17 09:00 09/11/17 08:59 08/20/17 09:24 Hydralazine HCl (Apresoline) 25 mg Q6HR ORAL 08/11/17 12:00 09/10/17 11:59 08/20/17 18:29 Metoprolol Tartrate (Lopressor) 25 mg Q12HR ORAL 08/11/17 21:00 09/10/17 20:59 08/20/17 20:23 Mirtazapine (Remeron) 15 mg BEDTIME ORAL 08/11/17 21:00 09/10/17 20:59 08/20/17 20:23 Ondansetron HCl (Zofran) 4 mg Q6H PRN IVP Nausea & Vomiting 08/11/17 09:30 09/10/17 09:29 Polyethylene Glycol (Miralax) 17 gm DAILYPRN PRN ORAL Constipation 08/11/17 09:30 09/10/17 09:29 08/17/17 17:28 Promethazine HCl/ Codeine (Phenergan with Codeine) 5 ml Q4H PRN ORAL For Cough 08/11/17 14:00 09/10/17 13:59 08/18/17 08:55 Risperidone (RisperDAL) 0.25 mg BID ORAL 08/11/17 18:00 09/10/17 17:59 08/20/17 18:29 Rivaroxaban (Xarelto) 10 mg DAILY ORAL 08/12/17 09:00 09/11/17 08:59 08/20/17 09:24 Sodium Phosphate (Fleet's Sodium Phosl Enema) 133 ml DAILYPRN PRN RECTAL Constipation 08/20/17 19:00 09/19/17 18:59 Solifenacin (Vesicare) 10 mg DAILY ORAL 08/12/17 11:00 09/11/17 10:59 08/20/17 09:24 Vancomycin HCl (Vanco rx to dose) 1 ea DAILY PRN MISC Per rx protocol 08/12/17 12:45 09/11/17 12:44 Vancomycin HCl/ Dextrose 250 ml @ 125 mls/hr Q24H IVPB 08/18/17 09:00 08/23/17 08:59 08/20/17 09:32 Zolpidem Tartrate (Ambien) 5 mg HSPRN PRN ORAL Insomnia 08/15/17 00:00 08/22/17 00:00 08/20/17 00:30 Mendel Sierra MD Aug 20, 2017 22:06
[2017-08-21] VITALS: BP 168/80
[2017-08-21] MEDS: Zolpidem 5mg tab ORAL PRN ×2 (01:01→23:20)
[2017-08-21] MEDS: HydrALAZINE 25mg tab ORAL SCH ×4 (01:01→17:57)
[2017-08-21] MEDS: Norco 5mg/325mg tab ORAL PRN (01:01)
[2017-08-21 04:00] VITALS: BP 153/89
[2017-08-21 08:00] VITALS: BP 155/90
[2017-08-21] MEDS: Vancomycin 1.5 GM/D5W 250ML IVPB SCH (08:41)
[2017-08-21] MEDS: Furosemide 40mg tab ORAL SCH (08:42)
[2017-08-21] MEDS: Xarelto 10mg tab ORAL SCH (08:42)
[2017-08-21] MEDS: Allopurinol 100mg Tab ORAL SCH (08:42)
[2017-08-21] MEDS: Metoprolol 25mg tab ORAL SCH ×2 (08:43→22:17)
--- NOTE | 2017-08-21 15:56 | Infectious Diseases Prog Note ---
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 No central lines or PPM present. -bcx 08/11 1/4 S. capitis (final ID resulted on 08/20); 08/12 2/4 S. hominis; Bcx 08/14 Neg -JIMY: no vegetation thickended mv -2d echo: ecogenic material on MV leaftlest- calcification vs vegetation. Moderate mitral regurgitation HOWEVER IN LIGHT OF VALVE CALCIFICATION VALDO DEGREE OF MR MAY BE MASKED BY THE CALCIFICATION Cough/fever- suspect influenza despite neg screen test; possible PNA vs pulmonary congestion; s/p Rx -no fever here so far -CXR: Left pleural effusion, new since 09/04/2016 Mild interstitial congestion - no leukocytosis Leukocytosis , resolved Pyuria/assymptomatic bacteriuria- no UTI symptoms -ucx >100K E.coli (S ceftraxone) HTN COPD long QT syndrome Aflutter CAD s/p stent ETOH abuse s/p b/l hip replacement CVA seizure disorder group home resident Plan: -Continue IV Vancomcyin # 03/15 for CoNS bacteremia; ok to discharge on this regimen via PIV -weekly CBC/BMP, vanco levels -08/18 SP Daptomycin x1 -08/16 SP Ceftriaxone #5, Tamiflu #5 -08/11 SP IV Vancomycin #1, Cefepime #1, Levaquin x1 -Monitor CBC/BMP, temperatures -aspiration precautions Subjective Allergies: Coded Allergies: NO KNOWN DRUG ALLERGIES (Unverified Allergy, Unknown, 07/11/15) Subjective afebrile no leukocytosis awaiting discharge Objective Vital Signs Last 24 Hour Vital Signs Date Time Temp Pulse Resp B/P (MAP) Pulse Ox O2 Delivery O2 Flow Rate FiO2 08/21/17 13:27 155/91 08/21/17 08:43 116 155/91 08/21/17 08:00 97.3 110 20 155/90 95 Room Air 97.3 08/21/17 06:03 153/89 08/21/17 04:00 97.1 101 22 153/89 94 97.1 08/21/17 01:01 168/80 08/21/17 00:00 95 Room Air 08/21/17 00:00 97.1 72 20 168/80 95 97.1 08/20/17 20:30 Nasal Cannula 2.0 28 08/20/17 20:30 94 Nasal Cannula 2.0 28 08/20/17 20:23 75 162/67 08/20/17 20:00 97.3 75 22 162/67 94 97.3 08/20/17 20:00 94 Room Air 08/20/17 18:29 151/69 08/20/17 16:00 97.3 69 21 151/69 99 Nasal Cannula 2.0 97.3 69 Height (Feet): 5 Height (Inches): 0.00 Weight (Pounds): 179 Objective General Appearance: WD/WN, cachetic Lines, tubes and drains: peripheral HEENT: normocephalic, atraumatic Neck: non-tender, supple Respiratory/Chest: rhonchi - bilaterally, rhonchi - right Cardiovascular/Chest: normal peripheral pulses, normal rate Genitourinary/Rectal: normal genital exam, heme negative stool Extremities: non-tender 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 Current Medications Medications (Trade) Dose Ordered Sig/Ibrahima Route PRN Reason Start Time Stop Time Status Last Admin Dose Admin Acetaminophen (Tylenol) 650 mg Q4H PRN ORAL FEVER>100.5 08/11/17 09:30 09/10/17 09:29 08/18/17 20:50 Acetaminophen/ Hydrocodone Bitart ([place] 5/325) 1 tab Q6H PRN ORAL Severe Pain (Pain Scale 7-10) 08/19/17 15:30 08/26/17 15:29 08/21/17 01:01 Allopurinol (Zyloprim) 100 mg DAILY ORAL 08/12/17 10:00 09/11/17 09:59 08/21/17 08:42 Bupropion HCl (Wellbutrin) 100 mg EVERY 12 HOURS ORAL 08/11/17 21:00 09/10/17 20:59 08/21/17 08:41 Calamine (Calamine) 1 applic QIDPRN PRN TOPIC Itching 08/17/17 14:45 09/16/17 14:44 08/18/17 08:58 Clotrimazole (Lotrimin) 1 applic EVERY 12 HOURS TOPIC 08/13/17 13:00 09/12/17 12:59 08/21/17 08:40 Dextrose (Dextrose 50%) STAT PRN IV Hypoglycemia 08/11/17 09:30 09/10/17 09:29 Diphenhydramine HCl (Benadryl) 25 mg Q6H PRN ORAL Itching 08/17/17 14:45 09/16/17 14:44 08/17/17 16:02 Divalproex Sodium (Depakote) 250 mg EVERY 12 HOURS ORAL 08/11/17 21:00 09/10/17 20:59 08/21/17 08:42 Docusate Sodium (Colace) 100 mg TID PRN ORAL Constipation 08/20/17 19:00 09/19/17 18:59 08/21/17 01:00 Furosemide (Lasix) 40 mg DAILY ORAL 08/12/17 09:00 09/11/17 08:59 08/21/17 08:42 Hydralazine HCl (Apresoline) 25 mg Q6HR ORAL 08/11/17 12:00 09/10/17 11:59 08/21/17 13:27 Metoprolol Tartrate (Lopressor) 25 mg Q12HR ORAL 08/11/17 21:00 09/10/17 20:59 08/21/17 08:43 Mirtazapine (Remeron) 15 mg BEDTIME ORAL 08/11/17 21:00 09/10/17 20:59 08/20/17 20:23 Ondansetron HCl (Zofran) 4 mg Q6H PRN IVP Nausea & Vomiting 08/11/17 09:30 09/10/17 09:29 Polyethylene Glycol (Miralax) 17 gm DAILYPRN PRN ORAL Constipation 08/11/17 09:30 09/10/17 09:29 08/17/17 17:28 Promethazine HCl/ Codeine (Phenergan with Codeine) 5 ml Q4H PRN ORAL For Cough 08/11/17 14:00 09/10/17 13:59 08/18/17 08:55 Risperidone (RisperDAL) 0.25 mg BID ORAL 08/11/17 18:00 09/10/17 17:59 08/21/17 08:41 Rivaroxaban (Xarelto) 10 mg DAILY ORAL 08/12/17 09:00 09/11/17 08:59 08/21/17 08:42 Sodium Phosphate (Fleet's Sodium Phosl Enema) 133 ml DAILYPRN PRN RECTAL Constipation 08/20/17 19:00 09/19/17 18:59 Solifenacin (Vesicare) 10 mg DAILY ORAL 08/12/17 11:00 09/11/17 10:59 08/21/17 08:42 Vancomycin HCl (Vanco rx to dose) 1 ea DAILY PRN MISC Per rx protocol 08/12/17 12:45 09/11/17 12:44 Vancomycin HCl/ Dextrose 250 ml @ 125 mls/hr Q24H IVPB 08/18/17 09:00 08/23/17 08:59 08/21/17 08:41 Zolpidem Tartrate (Ambien) 5 mg HSPRN PRN ORAL Insomnia 08/15/17 00:00 08/22/17 00:00 08/21/17 01:01 Danica Nayak M.D. Aug 21, 2017 15:55
[2017-08-21 15:59] VITALS: BP 138/53
--- NOTE | 2017-08-21 17:11 | Pulmonology Progress Note ---
Assessment/Plan Problems: (1) Bacteremia (2) Healthcare-associated pneumonia (3) COPD (chronic obstructive pulmonary disease) (4) Failure to thrive (5) Seizure disorder (6) Wheelchair bound (7) Bipolar depression (8) Cerebral vascular disease Assessment/Plan JIMY negative persistent bacteremia last BC from 08/14 are negative getting better continue abx for total to two weeks. respiratory treatment titrate fio2 to sat of 92% psych evaluation check blood cultures improving clinically on vancomycin 03/15 days dc planning to a snf nearby Subjective ROS Limited/Unobtainable: No Allergies: Coded Allergies: NO KNOWN DRUG ALLERGIES (Unverified Allergy, Unknown, 07/11/15) Objective Last 24 Hour Vital Signs Date Time Temp Pulse Resp B/P (MAP) Pulse Ox O2 Delivery O2 Flow Rate FiO2 08/21/17 15:59 97.7 63 21 138/53 97 Nasal Cannula 2.0 97.7 08/21/17 13:27 155/91 08/21/17 08:43 116 155/91 08/21/17 08:00 97.3 110 20 155/90 95 Room Air 97.3 08/21/17 06:03 153/89 08/21/17 04:00 97.1 101 22 153/89 94 97.1 08/21/17 01:01 168/80 08/21/17 00:00 95 Room Air 08/21/17 00:00 97.1 72 20 168/80 95 97.1 08/20/17 20:30 Nasal Cannula 2.0 28 08/20/17 20:30 94 Nasal Cannula 2.0 28 08/20/17 20:23 75 162/67 08/20/17 20:00 97.3 75 22 162/67 94 97.3 08/20/17 20:00 94 Room Air 08/20/17 18:29 151/69 Intake and Output 08/20/17 08/21/17 19:00 07:00 Intake Total 730 ml 500 ml Balance 730 ml 500 ml Intake Oral 480 ml 500 ml IV Total 250 ml # Voids 3 4 Objective General Appearance: cachectic HEENT: normocephalic, atraumatic, anicteric Respiratory/Chest: chest wall non-tender, rhonchi L>R Breasts: no masses Cardiovascular: normal peripheral pulses Abdomen: normal bowel sounds Genitourinary: normal external genitalia Current Medications Medications (Trade) Dose Ordered Sig/Ibrahima Route PRN Reason Start Time Stop Time Status Last Admin Dose Admin Acetaminophen (Tylenol) 650 mg Q4H PRN ORAL FEVER>100.5 08/11/17 09:30 09/10/17 09:29 08/18/17 20:50 Acetaminophen/ Hydrocodone Bitart ([place] 5/325) 1 tab Q6H PRN ORAL Severe Pain (Pain Scale 7-10) 08/19/17 15:30 08/26/17 15:29 08/21/17 01:01 Allopurinol (Zyloprim) 100 mg DAILY ORAL 08/12/17 10:00 09/11/17 09:59 08/21/17 08:42 Bupropion HCl (Wellbutrin) 100 mg EVERY 12 HOURS ORAL 08/11/17 21:00 09/10/17 20:59 08/21/17 08:41 Calamine (Calamine) 1 applic QIDPRN PRN TOPIC Itching 08/17/17 14:45 09/16/17 14:44 08/18/17 08:58 Clotrimazole (Lotrimin) 1 applic EVERY 12 HOURS TOPIC 08/13/17 13:00 09/12/17 12:59 08/21/17 08:40 Dextrose (Dextrose 50%) STAT PRN IV Hypoglycemia 08/11/17 09:30 09/10/17 09:29 Diphenhydramine HCl (Benadryl) 25 mg Q6H PRN ORAL Itching 08/17/17 14:45 09/16/17 14:44 08/17/17 16:02 Divalproex Sodium (Depakote) 250 mg EVERY 12 HOURS ORAL 08/11/17 21:00 09/10/17 20:59 08/21/17 08:42 Docusate Sodium (Colace) 100 mg TID PRN ORAL Constipation 08/20/17 19:00 09/19/17 18:59 08/21/17 01:00 Furosemide (Lasix) 40 mg DAILY ORAL 08/12/17 09:00 09/11/17 08:59 08/21/17 08:42 Hydralazine HCl (Apresoline) 25 mg Q6HR ORAL 08/11/17 12:00 09/10/17 11:59 08/21/17 13:27 Metoprolol Tartrate (Lopressor) 25 mg Q12HR ORAL 08/11/17 21:00 09/10/17 20:59 08/21/17 08:43 Mirtazapine (Remeron) 15 mg BEDTIME ORAL 08/11/17 21:00 09/10/17 20:59 08/20/17 20:23 Ondansetron HCl (Zofran) 4 mg Q6H PRN IVP Nausea & Vomiting 08/11/17 09:30 09/10/17 09:29 Polyethylene Glycol (Miralax) 17 gm DAILYPRN PRN ORAL Constipation 08/11/17 09:30 09/10/17 09:29 08/17/17 17:28 Promethazine HCl/ Codeine (Phenergan with Codeine) 5 ml Q4H PRN ORAL For Cough 08/11/17 14:00 09/10/17 13:59 08/18/17 08:55 Risperidone (RisperDAL) 0.25 mg BID ORAL 08/11/17 18:00 09/10/17 17:59 08/21/17 08:41 Rivaroxaban (Xarelto) 10 mg DAILY ORAL 08/12/17 09:00 09/11/17 08:59 08/21/17 08:42 Sodium Phosphate (Fleet's Sodium Phosl Enema) 133 ml DAILYPRN PRN RECTAL Constipation 08/20/17 19:00 09/19/17 18:59 Solifenacin (Vesicare) 10 mg DAILY ORAL 08/12/17 11:00 09/11/17 10:59 08/21/17 08:42 Vancomycin HCl (Vanco rx to dose) 1 ea DAILY PRN MISC Per rx protocol 08/12/17 12:45 09/11/17 12:44 Vancomycin HCl/ Dextrose 250 ml @ 125 mls/hr Q24H IVPB 08/18/17 09:00 08/23/17 08:59 08/21/17 08:41 Zolpidem Tartrate (Ambien) 5 mg HSPRN PRN ORAL Insomnia 08/15/17 00:00 08/22/17 00:00 08/21/17 01:01 Mendel Sierra MD Aug 21, 2017 17:10
--- NOTE | 2017-08-21 17:59 | Cardiology Progress Note ---
Assessment/Plan Assessment/Plan 1. Bacteremia, reportedly coag-negative Staph. 2. Questionable influenza infection. 3. Urinary tract infection. 4. Atrial fibrillation, flutter history. 5. History of leadless pacemaker implantation ab for 2 weeks per id no chf on exam looks qutei comforatbal e dc plans Subjective Cardiovascular: Denies: chest pain, lightheadedness Respiratory: Denies: shortness of breath Gastrointestinal/Abdominal: Denies: abdominal pain Genitourinary: Denies: burning Objective Last 24 Hour Vital Signs Date Time Temp Pulse Resp B/P (MAP) Pulse Ox O2 Delivery O2 Flow Rate FiO2 08/21/17 15:59 97.7 63 21 138/53 97 Nasal Cannula 2.0 97.7 08/21/17 13:27 155/91 08/21/17 08:43 116 155/91 08/21/17 08:00 97.3 110 20 155/90 95 Room Air 97.3 08/21/17 06:03 153/89 08/21/17 04:00 97.1 101 22 153/89 94 97.1 08/21/17 01:01 168/80 08/21/17 00:00 95 Room Air 08/21/17 00:00 97.1 72 20 168/80 95 97.1 08/20/17 20:30 Nasal Cannula 2.0 28 08/20/17 20:30 94 Nasal Cannula 2.0 28 08/20/17 20:23 75 162/67 08/20/17 20:00 97.3 75 22 162/67 94 97.3 08/20/17 20:00 94 Room Air 08/20/17 18:29 151/69 General Appearance: no apparent distress, alert, obese Cardiovascular: normal rate, regular rhythm Respiratory/Chest: lungs clear, normal breath sounds Abdomen: normal bowel sounds, non tender, soft Extremities: no swelling Intake and Output 08/20/17 08/21/17 19:00 07:00 Intake Total 730 ml 500 ml Balance 730 ml 500 ml Intake Oral 480 ml 500 ml IV Total 250 ml # Voids 3 4 ABY SCHWARTZ Aug 21, 2017 17:59
[2017-08-21 20:00] VITALS: BP 142/89
--- NOTE | 2017-08-21 21:57 | General Progress Note ---
Assessment/Plan Assessment/Plan anxiety mdd -cont remeron -cont ativan -cont risperdal Subjective Allergies: Coded Allergies: NO KNOWN DRUG ALLERGIES (Unverified Allergy, Unknown, 07/11/15) Subjective the pt is doing well Objective Last 24 Hour Vital Signs Date Time Temp Pulse Resp B/P (MAP) Pulse Ox O2 Delivery O2 Flow Rate FiO2 08/21/17 20:13 96 Nasal Cannula 2.0 28 08/21/17 20:13 Nasal Cannula 2.0 28 08/21/17 20:00 98.4 79 20 142/89 96 98.4 08/21/17 17:57 138/53 08/21/17 15:59 97.7 63 21 138/53 97 Nasal Cannula 2.0 97.7 08/21/17 13:27 155/91 08/21/17 08:43 116 155/91 08/21/17 08:00 97.3 110 20 155/90 95 Room Air 97.3 08/21/17 06:03 153/89 08/21/17 04:00 97.1 101 22 153/89 94 97.1 08/21/17 01:01 168/80 08/21/17 00:00 95 Room Air 08/21/17 00:00 97.1 72 20 168/80 95 97.1 Intake and Output 08/20/17 08/21/17 19:00 07:00 Intake Total 730 ml 500 ml Balance 730 ml 500 ml Intake Oral 480 ml 500 ml IV Total 250 ml # Voids 3 4 Height (Feet): 5 Height (Inches): 0.00 Weight (Pounds): 179 Luiz Morrison M.D. Aug 21, 2017 21:57
[2017-08-21] MEDS ORDERED: Flu Vaccine Quadrivalent 0.5ml IM ONE (22:00)
[2017-08-22] VITALS: BP 119/71
[2017-08-22] MEDS: HydrALAZINE 25mg tab ORAL SCH ×5 (00:25→23:50)
[2017-08-22 04:00] VITALS: BP 120/79
[2017-08-22 07:46] LABS: BASOPHILS % (AUTO) 0.7 % (0.0-2.0); EOSINOPHILS % (AUTO) 5.6 % (0.0-3.0); HEMATOCRIT 35.9 % (37.0-47.0); HEMOGLOBIN 12.5 G/DL (12.0-16.0); LYMPHOCYTES % (AUTO) 13.7 % (20.0-45.0); MEAN CORPUSCULAR VOLUME 97 FL (80-99); MONOCYTES % (AUTO) 4.8 % (1.0-10.0); NEUTROPHILS % (AUTO) 75.3 % (45.0-75.0); PLATELET COUNT 160 K/UL (150-450); RED CELL DISTRIBUTION WIDTH 14.2 % (11.6-14.8); WHITE BLOOD COUNT 9.8 K/UL (4.8-10.8)
[2017-08-22 08:00] VITALS: BP 132/74
[2017-08-22 08:21] LABS: ALANINE AMINOTRANSFERASE 19 U/L (12-78); ALBUMIN 2.7 G/DL (3.4-5.0); ALBUMIN/GLOBULIN RATIO 0.8 (1.0-2.7); ALKALINE PHOSPHATASE 49 U/L (46-116); ANION GAP 7 mmol/L (5-15); ASPARTATE AMINO TRANSFERASE 12 U/L (15-37); BILIRUBIN,TOTAL 0.4 MG/DL (0.2-1.0); BLOOD UREA NITROGEN 17 mg/dL (7-18); CALCIUM 8.5 MG/DL (8.5-10.1); CARBON DIOXIDE 33 MMOL/L (21-32); CHLORIDE 99 MMOL/L (98-107); CREATININE 0.6 MG/DL (0.55-1.30); PHOSPHORUS 3.9 MG/DL (2.5-4.9); POTASSIUM 3.5 MMOL/L (3.5-5.1); SODIUM 139 MMOL/L (136-145)
--- NOTE | 2017-08-22 08:43 | Pulmonology Progress Note ---
Assessment/Plan Assessment/Plan ASSESSMENT Persistent Staph hominis bacteremia Health care associated PNA, s/p Rx COPD HTN A flutter CAD with hx of stent placement Hx of CVA seizure disorder Hx of ETOH abuse MDD anxiety R heel stage 1 POA pressure ulcer L anterior 2nd toe pressure ulcer POA asymptomatic bacteriuria PLAN OF CARE MS floor last blood cx 08/14 negative abx ID follows ECHO noted JIMY no vegetation, thick MV O2 HHN prn BB for rate control, a/coagulation with Xarelto BP management with Hydralazine, BB and diuretic Seizure precautions, Depakote VSSE no aspiration Psych optimized psych med regimen wound care as per wound nurse recs Dc plan to [facility] when cleared by ID with duration of abx as specified by ID case discussed and evaluated by supervising physician Subjective Allergies: Coded Allergies: NO KNOWN DRUG ALLERGIES (Unverified Allergy, Unknown, 07/11/15) Subjective denies chest pain, SOB on O2 via NC sat stable mild tachy afebrile, no leukocytosis Objective Last 24 Hour Vital Signs Date Time Temp Pulse Resp B/P (MAP) Pulse Ox O2 Delivery O2 Flow Rate FiO2 08/22/17 06:08 142/89 08/22/17 04:00 98.1 89 20 120/79 96 Nasal Cannula 2.0 98.1 08/22/17 00:25 142/89 08/22/17 00:00 98.1 106 20 119/71 93 98.1 08/21/17 22:17 79 142/89 08/21/17 20:13 96 Nasal Cannula 2.0 28 08/21/17 20:13 Nasal Cannula 2.0 28 08/21/17 20:00 98.4 79 20 142/89 96 98.4 08/21/17 17:57 138/53 08/21/17 15:59 97.7 63 21 138/53 97 Nasal Cannula 2.0 97.7 08/21/17 13:27 155/91 Intake and Output 08/21/17 08/22/17 19:00 07:00 Intake Total 1020 ml 700 ml Balance 1020 ml 700 ml Intake Oral 1020 ml 700 ml # Voids 8 7 General Appearance: no acute distress - obese w/chair bound female HEENT: normocephalic, atraumatic, anicteric Respiratory/Chest: lungs clear, no respiratory distress Cardiovascular: no JVD, tachycardia Abdomen: normal bowel sounds, soft, non tender Extremities: no edema, pedal pulses normal Neurologic/Psychiatric: abnormal gait - w/c bound , alert, responsive Musculoskeletal: atrophy - BLE Laboratory Tests 08/22/17 05:20: White Blood Count 9.8, Red Blood Count 3.70L, Hemoglobin 12.5, Hematocrit 35.9L , Mean Corpuscular Volume 97, Mean Corpuscular Hemoglobin 33.7H, Mean Corpuscular Hemoglobin Concent 34.7, Red Cell Distribution Width 14.2, Platelet Count 160, Mean Platelet Volume 7.4, Neutrophils (%) (Auto) 75.3H, Lymphocytes ( %) (Auto) 13.7L, Monocytes (%) (Auto) 4.8, Eosinophils (%) (Auto) 5.6H, Basophils (%) (Auto) 0.7, Sodium Level 139, Potassium Level 3.5, Chloride Level 99, Carbon Dioxide Level 33H, Anion Gap 7, Blood Urea Nitrogen 17, Creatinine 0.6, Estimat Glomerular Filtration Rate , Glucose Level 117H, Calcium Level 8.5 , Phosphorus Level 3.9, Magnesium Level 2.0, Total Bilirubin 0.4, Aspartate Amino Transf (AST/SGOT) 12L, Alanine Aminotransferase (ALT/SGPT) 19, Alkaline Phosphatase 49, Total Protein 6.2L, Albumin 2.7L, Globulin 3.5, Albumin/ Globulin Ratio 0.8L Current Medications Medications (Trade) Dose Ordered Sig/Ibrahima Route PRN Reason Start Time Stop Time Status Last Admin Dose Admin Acetaminophen (Tylenol) 650 mg Q4H PRN ORAL FEVER>100.5 08/11/17 09:30 09/10/17 09:29 08/18/17 20:50 Acetaminophen/ Hydrocodone Bitart ([place] 5/325) 1 tab Q6H PRN ORAL Severe Pain (Pain Scale 7-10) 08/19/17 15:30 08/26/17 15:29 08/21/17 01:01 Allopurinol (Zyloprim) 100 mg DAILY ORAL 08/12/17 10:00 09/11/17 09:59 08/21/17 08:42 Bupropion HCl (Wellbutrin) 100 mg EVERY 12 HOURS ORAL 08/11/17 21:00 09/10/17 20:59 08/21/17 22:17 Calamine (Calamine) 1 applic QIDPRN PRN TOPIC Itching 08/17/17 14:45 09/16/17 14:44 08/18/17 08:58 Clotrimazole (Lotrimin) 1 applic EVERY 12 HOURS TOPIC 08/13/17 13:00 09/12/17 12:59 08/21/17 22:22 Dextrose (Dextrose 50%) STAT PRN IV Hypoglycemia 08/11/17 09:30 09/10/17 09:29 Diphenhydramine HCl (Benadryl) 25 mg Q6H PRN ORAL Itching 08/17/17 14:45 09/16/17 14:44 08/17/17 16:02 Divalproex Sodium (Depakote) 250 mg EVERY 12 HOURS ORAL 08/11/17 21:00 09/10/17 20:59 08/21/17 22:18 Docusate Sodium (Colace) 100 mg TID PRN ORAL Constipation 08/20/17 19:00 09/19/17 18:59 08/21/17 01:00 Furosemide (Lasix) 40 mg DAILY ORAL 08/12/17 09:00 09/11/17 08:59 08/21/17 08:42 Hydralazine HCl (Apresoline) 25 mg Q6HR ORAL 08/11/17 12:00 09/10/17 11:59 08/22/17 06:08 Metoprolol Tartrate (Lopressor) 25 mg Q12HR ORAL 08/11/17 21:00 09/10/17 20:59 08/21/17 22:17 Mirtazapine (Remeron) 15 mg BEDTIME ORAL 08/11/17 21:00 09/10/17 20:59 08/21/17 22:17 Ondansetron HCl (Zofran) 4 mg Q6H PRN IVP Nausea & Vomiting 08/11/17 09:30 09/10/17 09:29 Polyethylene Glycol (Miralax) 17 gm DAILYPRN PRN ORAL Constipation 08/11/17 09:30 09/10/17 09:29 08/17/17 17:28 Promethazine HCl/ Codeine (Phenergan with Codeine) 5 ml Q4H PRN ORAL For Cough 08/11/17 14:00 09/10/17 13:59 08/18/17 08:55 Risperidone (RisperDAL) 0.25 mg BID ORAL 08/11/17 18:00 09/10/17 17:59 08/21/17 17:57 Rivaroxaban (Xarelto) 10 mg DAILY ORAL 08/12/17 09:00 09/11/17 08:59 08/21/17 08:42 Sodium Phosphate (Fleet's Sodium Phosl Enema) 133 ml DAILYPRN PRN RECTAL Constipation 08/20/17 19:00 09/19/17 18:59 Solifenacin (Vesicare) 10 mg DAILY ORAL 08/12/17 11:00 09/11/17 10:59 08/21/17 08:42 Vancomycin HCl (Vanco rx to dose) 1 ea DAILY PRN MISC Per rx protocol 08/12/17 12:45 09/11/17 12:44 Vancomycin HCl/ Dextrose 250 ml @ 125 mls/hr Q24H IVPB 08/18/17 09:00 08/23/17 08:59 08/21/17 08:41 Justen (Brent)Jazzy NP Aug 22, 2017 08:43
[2017-08-22] MEDS: Xarelto 10mg tab ORAL SCH (08:53)
[2017-08-22] MEDS: Furosemide 40mg tab ORAL SCH (08:53)
[2017-08-22] MEDS: Metoprolol 25mg tab ORAL SCH ×2 (08:53→20:22)
[2017-08-22] MEDS: Vancomycin 1.5 GM/D5W 250ML IVPB SCH (08:54)
[2017-08-22] MEDS: Allopurinol 100mg Tab ORAL SCH (08:59)
[2017-08-22] MEDS: Norco 5mg/325mg tab ORAL PRN (09:00)
--- NOTE | 2017-08-22 09:57 | Wound Nurse Progress Note ---
Wound RN Progress Note Wound Consult 1 Mohini rash on perineal area, bilateral breast fold and neck. No deterioration noted #2 Right heel stage I pressure ulcer. Good progress noted #3 Left anterior 2nd toe unstageable pressure ulcer. Good progress noted Reassessed this Pt. Good progress noted. Will cont same wound care treatment and recommendations Recommendation -Local wound care per protocol -Offload both heels -Heel protector on both heels -Optimize nutrition -Turn and reposition -Keep clean and dry -Low air loss mattress -Assess and f/u accordingly for any changes LYN US RN Aug 22, 2017 09:57
[2017-08-22 12:00] VITALS: BP 129/75
[2017-08-22] MEDS ORDERED: Albuterol/Ipratropium 3ml neb HHN PRN (12:45)
--- NOTE | 2017-08-22 14:48 | General Progress Note ---
Assessment/Plan Assessment/Plan Dementia anxiety mdd -cont remeron -cont ativan -cont risperdal Subjective Date patient seen: Aug 22, 2017 Neurologic/Psychiatric: Reports: anxiety, depressed, emotional problems Allergies: Coded Allergies: NO KNOWN DRUG ALLERGIES (Unverified Allergy, Unknown, 07/11/15) Subjective the pt is doing well Objective Last 24 Hour Vital Signs Date Time Temp Pulse Resp B/P (MAP) Pulse Ox O2 Delivery O2 Flow Rate FiO2 08/22/17 13:01 129/75 08/22/17 12:00 97.8 98 18 129/75 94 Nasal Cannula 2.0 97.8 08/22/17 08:53 111 132/74 08/22/17 08:00 97.3 111 20 132/74 92 Nasal Cannula 2.0 97.3 08/22/17 06:08 142/89 08/22/17 04:00 98.1 89 20 120/79 96 Nasal Cannula 2.0 98.1 08/22/17 00:25 142/89 08/22/17 00:00 98.1 106 20 119/71 93 98.1 08/21/17 22:17 79 142/89 08/21/17 20:13 96 Nasal Cannula 2.0 28 08/21/17 20:13 Nasal Cannula 2.0 28 08/21/17 20:00 98.4 79 20 142/89 96 98.4 08/21/17 17:57 138/53 08/21/17 15:59 97.7 63 21 138/53 97 Nasal Cannula 2.0 97.7 Intake and Output 08/21/17 08/22/17 19:00 07:00 Intake Total 1020 ml 700 ml Balance 1020 ml 700 ml Intake Oral 1020 ml 700 ml # Voids 8 7 Laboratory Tests 08/22/17 05:20: White Blood Count 9.8, Red Blood Count 3.70L, Hemoglobin 12.5, Hematocrit 35.9L , Mean Corpuscular Volume 97, Mean Corpuscular Hemoglobin 33.7H, Mean Corpuscular Hemoglobin Concent 34.7, Red Cell Distribution Width 14.2, Platelet Count 160, Mean Platelet Volume 7.4, Neutrophils (%) (Auto) 75.3H, Lymphocytes ( %) (Auto) 13.7L, Monocytes (%) (Auto) 4.8, Eosinophils (%) (Auto) 5.6H, Basophils (%) (Auto) 0.7, Sodium Level 139, Potassium Level 3.5, Chloride Level 99, Carbon Dioxide Level 33H, Anion Gap 7, Blood Urea Nitrogen 17, Creatinine 0.6, Estimat Glomerular Filtration Rate , Glucose Level 117H, Calcium Level 8.5 , Phosphorus Level 3.9, Magnesium Level 2.0, Total Bilirubin 0.4, Aspartate Amino Transf (AST/SGOT) 12L, Alanine Aminotransferase (ALT/SGPT) 19, Alkaline Phosphatase 49, Total Protein 6.2L, Albumin 2.7L, Globulin 3.5, Albumin/ Globulin Ratio 0.8L Height (Feet): 5 Height (Inches): 0.00 Weight (Pounds): 179 General Appearance: no apparent distress, alert Neurologic: alert, oriented x 3, responsive, depressed affect Luiz Morrison M.D. Aug 22, 2017 14:48
[2017-08-22 16:00] VITALS: BP 166/69
--- NOTE | 2017-08-22 16:01 | Infectious Diseases Prog Note ---
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 No central lines or PPM present. -bcx 08/11 1/4 S. capitis (final ID resulted on 08/20); 08/12 2/4 S. hominis; Bcx 08/14 Neg -JIMY: no vegetation thickended mv -2d echo: ecogenic material on MV leaftlest- calcification vs vegetation. Moderate mitral regurgitation HOWEVER IN LIGHT OF VALVE CALCIFICATION VALDO DEGREE OF MR MAY BE MASKED BY THE CALCIFICATION Cough/fever- suspect influenza despite neg screen test; possible PNA vs pulmonary congestion; s/p Rx -no fever here so far -CXR: Left pleural effusion, new since 09/04/2016 Mild interstitial congestion - no leukocytosis Leukocytosis , resolved Pyuria/assymptomatic bacteriuria- no UTI symptoms -ucx >100K E.coli (S ceftraxone) HTN COPD long QT syndrome Aflutter CAD s/p stent ETOH abuse s/p b/l hip replacement CVA seizure disorder long-term resident Plan: -Continue IV Vancomcyin # 04/15 for CoNS bacteremia; ok to discharge on this regimen via PIV -weekly CBC/BMP, vanco levels -08/18 SP Daptomycin x1 -08/16 SP Ceftriaxone #5, Tamiflu #5 -08/11 SP IV Vancomycin #1, Cefepime #1, Levaquin x1 -Monitor CBC/BMP, temperatures -aspiration precautions Subjective Allergies: Coded Allergies: NO KNOWN DRUG ALLERGIES (Unverified Allergy, Unknown, 07/11/15) Subjective afebrile no leukocytosis awaiting discharge Objective Vital Signs Last 24 Hour Vital Signs Date Time Temp Pulse Resp B/P (MAP) Pulse Ox O2 Delivery O2 Flow Rate FiO2 08/22/17 13:01 129/75 08/22/17 12:00 97.8 98 18 129/75 94 Nasal Cannula 2.0 97.8 08/22/17 08:53 111 132/74 08/22/17 08:00 97.3 111 20 132/74 92 Nasal Cannula 2.0 97.3 08/22/17 06:08 142/89 08/22/17 04:00 98.1 89 20 120/79 96 Nasal Cannula 2.0 98.1 08/22/17 00:25 142/89 08/22/17 00:00 98.1 106 20 119/71 93 98.1 08/21/17 22:17 79 142/89 08/21/17 20:13 96 Nasal Cannula 2.0 28 08/21/17 20:13 Nasal Cannula 2.0 28 08/21/17 20:00 98.4 79 20 142/89 96 98.4 08/21/17 17:57 138/53 08/21/17 15:59 97.7 63 21 138/53 97 Nasal Cannula 2.0 97.7 Height (Feet): 5 Height (Inches): 0.00 Weight (Pounds): 179 Objective General Appearance: WD/WN, cachetic Lines, tubes and drains: peripheral HEENT: normocephalic, atraumatic Neck: non-tender, supple Respiratory/Chest: rhonchi - bilaterally, rhonchi - right Cardiovascular/Chest: normal peripheral pulses, normal rate Genitourinary/Rectal: normal genital exam, heme negative stool Extremities: non-tender Neurologic: program associate II-XII grossly normal Laboratory Tests Test 08/22/17 05:20 White Blood Count 9.8 K/UL (4.8-10.8) Red Blood Count 3.70 M/UL (4.20-5.40) L Hemoglobin 12.5 G/DL (12.0-16.0) Hematocrit 35.9 % (37.0-47.0) L Mean Corpuscular Volume 97 FL (80-99) Mean Corpuscular Hemoglobin 33.7 PG (27.0-31.0) H Mean Corpuscular Hemoglobin Concent 34.7 G/DL (32.0-36.0) Red Cell Distribution Width 14.2 % (11.6-14.8) Platelet Count 160 K/UL (150-450) Mean Platelet Volume 7.4 FL (6.5-10.1) Neutrophils (%) (Auto) 75.3 % (45.0-75.0) H Lymphocytes (%) (Auto) 13.7 % (20.0-45.0) L Monocytes (%) (Auto) 4.8 % (1.0-10.0) Eosinophils (%) (Auto) 5.6 % (0.0-3.0) H Basophils (%) (Auto) 0.7 % (0.0-2.0) Sodium Level 139 MMOL/L (136-145) Potassium Level 3.5 MMOL/L (3.5-5.1) Chloride Level 99 MMOL/L (98-107) Carbon Dioxide Level 33 MMOL/L (21-32) H Anion Gap 7 mmol/L (5-15) Blood Urea Nitrogen 17 mg/dL (7-18) Creatinine 0.6 MG/DL (0.55-1.30) Estimat Glomerular Filtration Rate mL/min (>60) Glucose Level 117 MG/DL (74-106) H Calcium Level 8.5 MG/DL (8.5-10.1) Phosphorus Level 3.9 MG/DL (2.5-4.9) Magnesium Level 2.0 MG/DL (1.8-2.4) Total Bilirubin 0.4 MG/DL (0.2-1.0) Aspartate Amino Transf (AST/SGOT) 12 U/L (15-37) L Alanine Aminotransferase (ALT/SGPT) 19 U/L (12-78) Alkaline Phosphatase 49 U/L (46-116) Total Protein 6.2 G/DL (6.4-8.2) L Albumin 2.7 G/DL (3.4-5.0) L Globulin 3.5 g/dL Albumin/Globulin Ratio 0.8 (1.0-2.7) L Current Medications Medications (Trade) Dose Ordered Sig/Ibrahima Route PRN Reason Start Time Stop Time Status Last Admin Dose Admin Acetaminophen (Tylenol) 650 mg Q4H PRN ORAL FEVER>100.5 08/11/17 09:30 09/10/17 09:29 08/18/17 20:50 Acetaminophen/ Hydrocodone Bitart ([place] 5/325) 1 tab Q6H PRN ORAL Severe Pain (Pain Scale 7-10) 08/19/17 15:30 08/26/17 15:29 08/22/17 09:00 Albuterol/ Ipratropium (Albuterol/ Ipratropium) 3 ml Q4H PRN HHN Shortness of Breath 08/22/17 12:45 08/27/17 12:44 Allopurinol (Zyloprim) 100 mg DAILY ORAL 08/12/17 10:00 09/11/17 09:59 08/22/17 08:59 Bupropion HCl (Wellbutrin) 100 mg EVERY 12 HOURS ORAL 08/11/17 21:00 09/10/17 20:59 08/22/17 08:53 Calamine (Calamine) 1 applic QIDPRN PRN TOPIC Itching 08/17/17 14:45 09/16/17 14:44 08/18/17 08:58 Clotrimazole (Lotrimin) 1 applic EVERY 12 HOURS TOPIC 08/13/17 13:00 09/12/17 12:59 08/22/17 08:59 Dextrose (Dextrose 50%) STAT PRN IV Hypoglycemia 08/11/17 09:30 09/10/17 09:29 Diphenhydramine HCl (Benadryl) 25 mg Q6H PRN ORAL Itching 08/17/17 14:45 09/16/17 14:44 08/22/17 09:00 Divalproex Sodium (Depakote) 250 mg EVERY 12 HOURS ORAL 08/11/17 21:00 09/10/17 20:59 08/22/17 08:53 Docusate Sodium (Colace) 100 mg TID PRN ORAL Constipation 08/20/17 19:00 09/19/17 18:59 08/21/17 01:00 Furosemide (Lasix) 40 mg DAILY ORAL 08/12/17 09:00 09/11/17 08:59 08/22/17 08:53 Hydralazine HCl (Apresoline) 25 mg Q6HR ORAL 08/11/17 12:00 09/10/17 11:59 08/22/17 13:01 Metoprolol Tartrate (Lopressor) 25 mg Q12HR ORAL 08/11/17 21:00 09/10/17 20:59 08/22/17 08:53 Mirtazapine (Remeron) 15 mg BEDTIME ORAL 08/11/17 21:00 09/10/17 20:59 08/21/17 22:17 Ondansetron HCl (Zofran) 4 mg Q6H PRN IVP Nausea & Vomiting 08/11/17 09:30 09/10/17 09:29 Polyethylene Glycol (Miralax) 17 gm DAILYPRN PRN ORAL Constipation 08/11/17 09:30 09/10/17 09:29 08/17/17 17:28 Promethazine HCl/ Codeine (Phenergan with Codeine) 5 ml Q4H PRN ORAL For Cough 08/11/17 14:00 09/10/17 13:59 08/18/17 08:55 Risperidone (RisperDAL) 0.25 mg BID ORAL 08/11/17 18:00 09/10/17 17:59 08/22/17 08:54 Rivaroxaban (Xarelto) 10 mg DAILY ORAL 08/12/17 09:00 09/11/17 08:59 08/22/17 08:53 Sodium Phosphate (Fleet's Sodium Phosl Enema) 133 ml DAILYPRN PRN RECTAL Constipation 08/20/17 19:00 09/19/17 18:59 Solifenacin (Vesicare) 10 mg DAILY ORAL 08/12/17 11:00 09/11/17 10:59 08/22/17 08:53 Vancomycin HCl (Vanco rx to dose) 1 ea DAILY PRN MISC Per rx protocol 08/12/17 12:45 09/11/17 12:44 Vancomycin HCl/ Dextrose 250 ml @ 125 mls/hr Q24H IVPB 08/18/17 09:00 08/25/17 23:59 08/22/17 08:54 Danica Nayak M.D. Aug 22, 2017 16:01
[2017-08-22 20:00] VITALS: BP 137/78
[2017-08-23] VITALS: BP 150/65
[2017-08-23 04:00] VITALS: BP 106/58
[2017-08-23] MEDS: HydrALAZINE 25mg tab ORAL SCH ×4 (05:24→23:40)
[2017-08-23] MEDS: Norco 5mg/325mg tab ORAL PRN (05:25)
[2017-08-23] MEDS: Promethazine/Codeine 5ml UD ORAL PRN (06:20)
[2017-08-23 08:00] VITALS: BP 118/68
[2017-08-23] MEDS: Furosemide 40mg tab ORAL SCH (08:44)
[2017-08-23] MEDS: Metoprolol 25mg tab ORAL SCH ×2 (08:45→20:20)
[2017-08-23] MEDS: Allopurinol 100mg Tab ORAL SCH (08:45)
[2017-08-23] MEDS: Xarelto 10mg tab ORAL SCH (08:45)
--- NOTE | 2017-08-23 09:20 | Pulmonology Progress Note ---
Assessment/Plan Assessment/Plan ASSESSMENT Persistent Staph hominis bacteremia Health care associated PNA, s/p Rx COPD HTN A flutter CAD with hx of stent placement Hx of CVA seizure disorder Hx of ETOH abuse MDD anxiety R heel stage 1 POA pressure ulcer L anterior 2nd toe pressure ulcer POA asymptomatic bacteriuria PLAN OF CARE MS floor last blood cx 08/14 negative abx ID follows ECHO noted JIMY no vegetation, thick MV O2 HHN prn BB for rate control, a/coagulation with Xarelto BP management with Hydralazine, BB and diuretic Seizure precautions, Depakote VSSE no aspiration Psych optimized psych med regimen wound care as per wound nurse recs Dc today to SNF and complete IV abx course as specified by ID case discussed and evaluated by supervising physician Subjective Allergies: Coded Allergies: NO KNOWN DRUG ALLERGIES (Unverified Allergy, Unknown, 07/11/15) Subjective denies chest pain, SOB on O2 via NC sat stable afebrile, no leukocytosis awaiting for disposition Objective Last 24 Hour Vital Signs Date Time Temp Pulse Resp B/P (MAP) Pulse Ox O2 Delivery O2 Flow Rate FiO2 08/23/17 08:45 108 118/68 08/23/17 08:00 97.3 108 20 118/68 93 Nasal Cannula 2.0 97.3 08/23/17 05:24 121/68 08/23/17 04:00 Nasal Cannula 2.0 08/23/17 04:00 97.2 60 20 106/58 94 97.2 08/23/17 00:00 98.1 64 18 150/65 95 Nasal Cannula 2.0 98.1 08/22/17 23:50 150/65 08/22/17 20:22 98 137/78 08/22/17 20:00 97.9 98 21 137/78 97 Nasal Cannula 2.0 97.9 08/22/17 19:53 81 24 Nasal Cannula 2.0 28 08/22/17 19:52 Nasal Cannula 2.0 28 08/22/17 19:52 96 Nasal Cannula 2.0 28 08/22/17 17:30 129/75 08/22/17 16:00 98.8 73 18 166/69 94 Nasal Cannula 2.0 98.8 08/22/17 13:01 129/75 08/22/17 12:00 97.8 98 18 129/75 94 Nasal Cannula 2.0 97.8 Intake and Output 08/22/17 08/23/17 19:00 07:00 Intake Total 490 ml 240 ml Balance 490 ml 240 ml Intake Oral 240 ml 240 ml IV Total 250 ml # Voids 2 3 Objective General Appearance: obese w/chair bound female in no acute distress HEENT: normocephalic, atraumatic, anicteric Respiratory/Chest: lungs clear, no respiratory distress Cardiovascular: no JVD,mild tachycardia Abdomen: normal bowel sounds, soft, non tender Extremities: no edema, pedal pulses normal Neurologic/Psychiatric: abnormal gait / w/c bound , alert, responsive Musculoskeletal: atrophy - BLE Current Medications Medications (Trade) Dose Ordered Sig/Ibrahima Route PRN Reason Start Time Stop Time Status Last Admin Dose Admin Acetaminophen (Tylenol) 650 mg Q4H PRN ORAL FEVER>100.5 08/11/17 09:30 09/10/17 09:29 08/18/17 20:50 Acetaminophen/ Hydrocodone Bitart ([place] 5/325) 1 tab Q6H PRN ORAL Severe Pain (Pain Scale 7-10) 08/19/17 15:30 08/26/17 15:29 08/23/17 05:25 Albuterol/ Ipratropium (Albuterol/ Ipratropium) 3 ml Q4H PRN HHN Shortness of Breath 08/22/17 12:45 08/27/17 12:44 Allopurinol (Zyloprim) 100 mg DAILY ORAL 08/12/17 10:00 09/11/17 09:59 08/23/17 08:45 Bupropion HCl (Wellbutrin) 100 mg EVERY 12 HOURS ORAL 08/11/17 21:00 09/10/17 20:59 08/23/17 08:46 Calamine (Calamine) 1 applic QIDPRN PRN TOPIC Itching 08/17/17 14:45 09/16/17 14:44 08/18/17 08:58 Clotrimazole (Lotrimin) 1 applic EVERY 12 HOURS TOPIC 08/13/17 13:00 09/12/17 12:59 08/23/17 08:44 Dextrose (Dextrose 50%) STAT PRN IV Hypoglycemia 08/11/17 09:30 09/10/17 09:29 Diphenhydramine HCl (Benadryl) 25 mg Q6H PRN ORAL Itching 08/17/17 14:45 09/16/17 14:44 08/22/17 09:00 Divalproex Sodium (Depakote) 250 mg EVERY 12 HOURS ORAL 08/11/17 21:00 09/10/17 20:59 08/23/17 08:45 Docusate Sodium (Colace) 100 mg TID PRN ORAL Constipation 08/20/17 19:00 09/19/17 18:59 08/21/17 01:00 Furosemide (Lasix) 40 mg DAILY ORAL 08/12/17 09:00 09/11/17 08:59 08/23/17 08:44 Hydralazine HCl (Apresoline) 25 mg Q6HR ORAL 08/11/17 12:00 09/10/17 11:59 08/23/17 05:24 Metoprolol Tartrate (Lopressor) 25 mg Q12HR ORAL 08/11/17 21:00 09/10/17 20:59 08/23/17 08:45 Mirtazapine (Remeron) 15 mg BEDTIME ORAL 08/11/17 21:00 09/10/17 20:59 08/22/17 20:15 Ondansetron HCl (Zofran) 4 mg Q6H PRN IVP Nausea & Vomiting 08/11/17 09:30 09/10/17 09:29 Polyethylene Glycol (Miralax) 17 gm DAILYPRN PRN ORAL Constipation 08/11/17 09:30 09/10/17 09:29 08/17/17 17:28 Promethazine HCl/ Codeine (Phenergan with Codeine) 5 ml Q4H PRN ORAL For Cough 08/11/17 14:00 09/10/17 13:59 08/23/17 06:20 Risperidone (RisperDAL) 0.25 mg BID ORAL 08/11/17 18:00 09/10/17 17:59 08/23/17 08:46 Rivaroxaban (Xarelto) 10 mg DAILY ORAL 08/12/17 09:00 09/11/17 08:59 08/23/17 08:45 Sodium Phosphate (Fleet's Sodium Phosl Enema) 133 ml DAILYPRN PRN RECTAL Constipation 08/20/17 19:00 09/19/17 18:59 Solifenacin (Vesicare) 10 mg DAILY ORAL 08/12/17 11:00 09/11/17 10:59 08/23/17 08:46 Vancomycin HCl (Vanco rx to dose) 1 ea DAILY PRN MISC Per rx protocol 08/12/17 12:45 09/11/17 12:44 Vancomycin HCl/ Dextrose 250 ml @ 125 mls/hr Q24H IVPB 08/18/17 09:00 08/25/17 23:59 08/22/17 08:54 Justen (Brent)Jazzy NP Aug 23, 2017 09:20
[2017-08-23 12:00] VITALS: BP 134/64
--- NOTE | 2017-08-23 12:05 | Infectious Diseases Prog Note ---
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 No central lines or PPM present. -bcx 08/11 1/4 S. capitis (final ID resulted on 08/20); 08/12 2/4 S. hominis; Bcx 08/14 Neg -JIMY: no vegetation thickended mv -2d echo: ecogenic material on MV leaftlest- calcification vs vegetation. Moderate mitral regurgitation HOWEVER IN LIGHT OF VALVE CALCIFICATION VALDO DEGREE OF MR MAY BE MASKED BY THE CALCIFICATION Cough/fever- suspect influenza despite neg screen test; possible PNA vs pulmonary congestion; s/p Rx -no fever here so far -CXR: Left pleural effusion, new since 09/04/2016 Mild interstitial congestion - no leukocytosis Leukocytosis , resolved Pyuria/assymptomatic bacteriuria- no UTI symptoms -ucx >100K E.coli (S ceftraxone) HTN COPD long QT syndrome Aflutter CAD s/p stent ETOH abuse s/p b/l hip replacement CVA seizure disorder senior care resident Plan: -Continue IV Vancomcyin # 05/15 for CoNS bacteremia; ok to discharge on this regimen via PIV -weekly CBC/BMP, vanco levels -08/18 SP Daptomycin x1 -08/16 SP Ceftriaxone #5, Tamiflu #5 -08/11 SP IV Vancomycin #1, Cefepime #1, Levaquin x1 -Monitor CBC/BMP, temperatures -aspiration precautions Subjective Allergies: Coded Allergies: NO KNOWN DRUG ALLERGIES (Unverified Allergy, Unknown, 07/11/15) Subjective afebrile no leukocytosis awaiting discharge Objective Vital Signs Last 24 Hour Vital Signs Date Time Temp Pulse Resp B/P (MAP) Pulse Ox O2 Delivery O2 Flow Rate FiO2 08/23/17 08:45 108 118/68 08/23/17 08:00 97.3 108 20 118/68 93 Nasal Cannula 2.0 97.3 08/23/17 05:24 121/68 08/23/17 04:00 Nasal Cannula 2.0 08/23/17 04:00 97.2 60 20 106/58 94 97.2 08/23/17 00:00 98.1 64 18 150/65 95 Nasal Cannula 2.0 98.1 08/22/17 23:50 150/65 08/22/17 20:22 98 137/78 08/22/17 20:00 97.9 98 21 137/78 97 Nasal Cannula 2.0 97.9 08/22/17 19:53 81 24 Nasal Cannula 2.0 28 08/22/17 19:52 Nasal Cannula 2.0 28 08/22/17 19:52 96 Nasal Cannula 2.0 28 08/22/17 17:30 129/75 08/22/17 16:00 98.8 73 18 166/69 94 Nasal Cannula 2.0 98.8 08/22/17 13:01 129/75 Height (Feet): 5 Height (Inches): 0.00 Weight (Pounds): 179 Objective General Appearance: WD/WN, cachetic Lines, tubes and drains: peripheral HEENT: normocephalic, atraumatic Neck: non-tender, supple Respiratory/Chest: rhonchi - bilaterally, rhonchi - right Cardiovascular/Chest: normal peripheral pulses, normal rate Genitourinary/Rectal: normal genital exam, heme negative stool Extremities: non-tender Neurologic: nurse extern II-XII grossly normal Laboratory Tests Test 08/23/17 08:50 Vancomycin Level Trough 11.0 ug/mL (5.0-12.0) Current Medications Medications (Trade) Dose Ordered Sig/Ibrahima Route PRN Reason Start Time Stop Time Status Last Admin Dose Admin Acetaminophen (Tylenol) 650 mg Q4H PRN ORAL FEVER>100.5 08/11/17 09:30 09/10/17 09:29 08/18/17 20:50 Acetaminophen/ Hydrocodone Bitart ([place] 5/325) 1 tab Q6H PRN ORAL Severe Pain (Pain Scale 7-10) 08/19/17 15:30 08/26/17 15:29 08/23/17 05:25 Albuterol/ Ipratropium (Albuterol/ Ipratropium) 3 ml Q4H PRN HHN Shortness of Breath 08/22/17 12:45 08/27/17 12:44 Allopurinol (Zyloprim) 100 mg DAILY ORAL 08/12/17 10:00 09/11/17 09:59 08/23/17 08:45 Bupropion HCl (Wellbutrin) 100 mg EVERY 12 HOURS ORAL 08/11/17 21:00 09/10/17 20:59 08/23/17 08:46 Calamine (Calamine) 1 applic QIDPRN PRN TOPIC Itching 08/17/17 14:45 09/16/17 14:44 08/18/17 08:58 Clotrimazole (Lotrimin) 1 applic EVERY 12 HOURS TOPIC 08/13/17 13:00 09/12/17 12:59 08/23/17 08:44 Dextrose (Dextrose 50%) STAT PRN IV Hypoglycemia 08/11/17 09:30 09/10/17 09:29 Diphenhydramine HCl (Benadryl) 25 mg Q6H PRN ORAL Itching 08/17/17 14:45 09/16/17 14:44 08/22/17 09:00 Divalproex Sodium (Depakote) 250 mg EVERY 12 HOURS ORAL 08/11/17 21:00 09/10/17 20:59 08/23/17 08:45 Docusate Sodium (Colace) 100 mg TID PRN ORAL Constipation 08/20/17 19:00 09/19/17 18:59 08/21/17 01:00 Furosemide (Lasix) 40 mg DAILY ORAL 08/12/17 09:00 09/11/17 08:59 08/23/17 08:44 Hydralazine HCl (Apresoline) 25 mg Q6HR ORAL 08/11/17 12:00 09/10/17 11:59 08/23/17 05:24 Metoprolol Tartrate (Lopressor) 25 mg Q12HR ORAL 08/11/17 21:00 09/10/17 20:59 08/23/17 08:45 Mirtazapine (Remeron) 15 mg BEDTIME ORAL 08/11/17 21:00 09/10/17 20:59 08/22/17 20:15 Ondansetron HCl (Zofran) 4 mg Q6H PRN IVP Nausea & Vomiting 08/11/17 09:30 09/10/17 09:29 Polyethylene Glycol (Miralax) 17 gm DAILYPRN PRN ORAL Constipation 08/11/17 09:30 09/10/17 09:29 08/17/17 17:28 Promethazine HCl/ Codeine (Phenergan with Codeine) 5 ml Q4H PRN ORAL For Cough 08/11/17 14:00 09/10/17 13:59 08/23/17 06:20 Risperidone (RisperDAL) 0.25 mg BID ORAL 08/11/17 18:00 09/10/17 17:59 08/23/17 08:46 Rivaroxaban (Xarelto) 10 mg DAILY ORAL 08/12/17 09:00 09/11/17 08:59 08/23/17 08:45 Sodium Phosphate (Fleet's Sodium Phosl Enema) 133 ml DAILYPRN PRN RECTAL Constipation 08/20/17 19:00 09/19/17 18:59 Solifenacin (Vesicare) 10 mg DAILY ORAL 08/12/17 11:00 09/11/17 10:59 08/23/17 08:46 Vancomycin HCl (Vanco rx to dose) 1 ea DAILY PRN MISC Per rx protocol 08/12/17 12:45 09/11/17 12:44 Vancomycin HCl 1 gm/Dextrose 275 ml @ 183.708 mls/hr Q12HR@1100,2300 IVPB 08/23/17 11:00 08/28/17 10:59 Danica Nayak M.D. Aug 23, 2017 12:05
[2017-08-23] MEDS: Vancomycin 1gm in D5W 275ml IVPB SCH ×2 (14:39→23:38)
[2017-08-23 16:00] VITALS: BP 114/72
[2017-08-23] MEDS ORDERED: Tubing IV Secondary IV ONE (17:29)
[2017-08-23 20:00] VITALS: BP 152/83
[2017-08-23] MEDS ORDERED: Vancomycin 1gm inj IVPB ONE (23:33)
[2017-08-24] VITALS: BP 138/86
[2017-08-24 04:00] VITALS: BP 119/53
[2017-08-24] MEDS: Norco 5mg/325mg tab ORAL PRN ×3 (04:40→20:49)
[2017-08-24] MEDS: HydrALAZINE 25mg tab ORAL SCH ×4 (06:11→23:23)
[2017-08-24 08:00] VITALS: BP 140/80
[2017-08-24] MEDS: Xarelto 10mg tab ORAL SCH (08:46)
[2017-08-24] MEDS: Furosemide 40mg tab ORAL SCH (08:48)
[2017-08-24] MEDS: Allopurinol 100mg Tab ORAL SCH (08:48)
[2017-08-24] MEDS: Metoprolol 25mg tab ORAL SCH ×2 (08:57→20:48)
--- NOTE | 2017-08-24 11:29 | Pulmonology Progress Note ---
Assessment/Plan Assessment/Plan ASSESSMENT Persistent Staph hominis bacteremia Health care associated PNA, s/p Rx COPD HTN A flutter CAD with hx of stent placement Hx of CVA seizure disorder Hx of ETOH abuse MDD anxiety R heel stage 1 POA pressure ulcer L anterior 2nd toe pressure ulcer POA asymptomatic bacteriuria PLAN OF CARE [place] floor last blood cx 08/14 negative abx ID follows ECHO noted JIMY no vegetation, thick MV O2 HHN prn BB for rate control, a/coagulation with Xarelto BP management with Hydralazine, BB and diuretic Seizure precautions, Depakote VSSE no aspiration Psych optimized psych med regimen wound care as per wound nurse recs Dc today to SNF and complete IV abx course as specified by ID case discussed and evaluated by supervising physician Subjective Allergies: Coded Allergies: NO KNOWN DRUG ALLERGIES (Unverified Allergy, Unknown, 07/11/15) Subjective on O2 via NC sat stable afebrile, no leukocytosis awaiting for disposition Pedro frey still did not give approval Objective Last 24 Hour Vital Signs Date Time Temp Pulse Resp B/P (MAP) Pulse Ox O2 Delivery O2 Flow Rate FiO2 08/24/17 08:57 69 140/80 08/24/17 08:00 97.9 67 21 140/80 97 Room Air 97.9 08/24/17 07:20 92 Nasal Cannula 2.0 28 08/24/17 07:20 74 22 Nasal Cannula 2.0 28 08/24/17 07:20 Nasal Cannula 2.0 28 08/24/17 06:11 119/53 08/24/17 04:00 Nasal Cannula 2.0 08/24/17 04:00 97.3 67 20 119/53 97 97.3 08/24/17 00:00 Nasal Cannula 2.0 08/24/17 00:00 98.6 102 22 138/86 95 98.6 08/23/17 23:40 138/86 08/23/17 20:20 111 152/83 08/23/17 20:00 98.6 111 20 152/83 98 98.6 08/23/17 20:00 Nasal Cannula 2.0 08/23/17 19:20 95 Nasal Cannula 2.0 28 08/23/17 19:20 85 24 Nasal Cannula 2.0 28 08/23/17 19:20 Nasal Cannula 2.0 28 3/24/18 17:22 114/72 08/23/17 16:00 97.0 64 20 114/72 92 Room Air 97.0 08/23/17 12:00 97.5 65 20 134/64 92 Nasal Cannula 2.0 97.5 08/23/17 12:00 134/64 Intake and Output 08/23/17 08/24/17 19:00 07:00 Intake Total 835.000 ml 475.000 ml Balance 835.000 ml 475.000 ml Intake Oral 560 ml 200 ml IV Total 275.000 ml 275.000 ml # Voids 6 2 Objective General Appearance: obese w/chair bound female in no acute distress HEENT: normocephalic, atraumatic, anicteric Respiratory/Chest: lungs clear, no respiratory distress Cardiovascular: no JVD,mild tachycardia Abdomen: normal bowel sounds, soft, non tender Extremities: no edema, pedal pulses normal Neurologic/Psychiatric: abnormal gait / w/c bound , alert, responsive Musculoskeletal: atrophy - BLE Current Medications Medications (Trade) Dose Ordered Sig/Ibrahima Route PRN Reason Start Time Stop Time Status Last Admin Dose Admin Acetaminophen (Tylenol) 650 mg Q4H PRN ORAL FEVER>100.5 08/11/17 09:30 09/10/17 09:29 08/18/17 20:50 Acetaminophen/ Hydrocodone Bitart ([place] 5/325) 1 tab Q6H PRN ORAL Severe Pain (Pain Scale 7-10) 08/19/17 15:30 08/26/17 15:29 08/24/17 04:40 Albuterol/ Ipratropium (Albuterol/ Ipratropium) 3 ml Q4H PRN HHN Shortness of Breath 08/22/17 12:45 08/27/17 12:44 Allopurinol (Zyloprim) 100 mg DAILY ORAL 08/12/17 10:00 09/11/17 09:59 08/24/17 08:48 Bupropion HCl (Wellbutrin) 100 mg EVERY 12 HOURS ORAL 08/11/17 21:00 09/10/17 20:59 08/24/17 08:46 Calamine (Calamine) 1 applic QIDPRN PRN TOPIC Itching 08/17/17 14:45 09/16/17 14:44 08/18/17 08:58 Clotrimazole (Lotrimin) 1 applic EVERY 12 HOURS TOPIC 08/13/17 13:00 09/12/17 12:59 08/24/17 08:49 Dextrose (Dextrose 50%) STAT PRN IV Hypoglycemia 08/11/17 09:30 09/10/17 09:29 Diphenhydramine HCl (Benadryl) 25 mg Q6H PRN ORAL Itching 08/17/17 14:45 09/16/17 14:44 08/23/17 17:22 Divalproex Sodium (Depakote) 250 mg EVERY 12 HOURS ORAL 08/11/17 21:00 09/10/17 20:59 08/24/17 08:48 Docusate Sodium (Colace) 100 mg TID PRN ORAL Constipation 08/20/17 19:00 09/19/17 18:59 08/21/17 01:00 Furosemide (Lasix) 40 mg DAILY ORAL 08/12/17 09:00 09/11/17 08:59 08/24/17 08:48 Hydralazine HCl (Apresoline) 25 mg Q6HR ORAL 08/11/17 12:00 09/10/17 11:59 08/24/17 06:11 Metoprolol Tartrate (Lopressor) 25 mg Q12HR ORAL 08/11/17 21:00 09/10/17 20:59 08/24/17 08:57 Mirtazapine (Remeron) 15 mg BEDTIME ORAL 08/11/17 21:00 09/10/17 20:59 08/23/17 20:19 Ondansetron HCl (Zofran) 4 mg Q6H PRN IVP Nausea & Vomiting 08/11/17 09:30 09/10/17 09:29 Polyethylene Glycol (Miralax) 17 gm DAILYPRN PRN ORAL Constipation 08/11/17 09:30 09/10/17 09:29 08/17/17 17:28 Promethazine HCl/ Codeine (Phenergan with Codeine) 5 ml Q4H PRN ORAL For Cough 08/11/17 14:00 09/10/17 13:59 08/23/17 06:20 Risperidone (RisperDAL) 0.25 mg BID ORAL 08/11/17 18:00 09/10/17 17:59 08/24/17 08:48 Rivaroxaban (Xarelto) 10 mg DAILY ORAL 08/12/17 09:00 09/11/17 08:59 08/24/17 08:46 Sodium Phosphate (Fleet's Sodium Phosl Enema) 133 ml DAILYPRN PRN RECTAL Constipation 08/20/17 19:00 09/19/17 18:59 Solifenacin (Vesicare) 10 mg DAILY ORAL 08/12/17 11:00 09/11/17 10:59 08/24/17 08:48 Vancomycin HCl (Vanco rx to dose) 1 ea DAILY PRN MISC Per rx protocol 08/12/17 12:45 09/11/17 12:44 Vancomycin HCl 1 gm/Dextrose 275 ml @ 183.708 mls/hr Q12HR@1100,2300 IVPB 08/23/17 11:00 08/28/17 10:59 08/23/17 23:38 Justen (Jazzy Joy NP Aug 24, 2017 11:29
[2017-08-24] MEDS: Vancomycin 1gm in D5W 275ml IVPB SCH ×2 (11:58→23:19)
[2017-08-24 12:00] VITALS: BP 137/78
[2017-08-24 16:00] VITALS: BP 145/67
[2017-08-24] MEDS: Calamine Lotion 4oz TOPIC PRN (18:55)
[2017-08-24 20:00] VITALS: BP 150/72
[2017-08-25] VITALS: BP 152/62
[2017-08-25 04:00] VITALS: BP 163/81
[2017-08-25] MEDS: HydrALAZINE 25mg tab ORAL SCH ×3 (05:48→17:06)
[2017-08-25] MEDS: Promethazine/Codeine 5ml UD ORAL PRN ×2 (05:48→17:06)
[2017-08-25 08:00] VITALS: BP 150/92
[2017-08-25] MEDS: Xarelto 10mg tab ORAL SCH (08:02)
[2017-08-25] MEDS: Furosemide 40mg tab ORAL SCH (08:04)
[2017-08-25] MEDS: Allopurinol 100mg Tab ORAL SCH (08:04)
[2017-08-25] MEDS: Metoprolol 25mg tab ORAL SCH ×2 (08:04→17:06)
--- NOTE | 2017-08-25 09:23 | Pulmonology Progress Note ---
Assessment/Plan Assessment/Plan ASSESSMENT Persistent Staph hominis bacteremia Health care associated PNA, s/p Rx COPD HTN A flutter CAD with hx of stent placement Hx of CVA seizure disorder Hx of ETOH abuse MDD anxiety R heel stage 1 POA pressure ulcer L anterior 2nd toe pressure ulcer POA asymptomatic bacteriuria hyponatremia -resolved PLAN OF CARE [facility] floor last blood cx 08/14 negative abx ID follows ECHO noted JIMY no vegetation, thick MV O2 HHN prn BB for rate control, a/coagulation with Xarelto BP management with Hydralazine, BB and diuretic Seizure precautions, Depakote VSSE no aspiration Psych optimized psych med regimen wound care as per wound nurse recs Dc today to SNF and complete IV abx course as specified by ID case discussed and evaluated by supervising physician Subjective Allergies: Coded Allergies: NO KNOWN DRUG ALLERGIES (Unverified Allergy, Unknown, 07/11/15) Subjective on O2 via NC sat stable afebrile, no leukocytosis awaiting for disposition Pedro frey still did not give approval Objective Last 24 Hour Vital Signs Date Time Temp Pulse Resp B/P (MAP) Pulse Ox O2 Delivery O2 Flow Rate FiO2 08/25/17 08:04 70 163/83 08/25/17 07:25 71 22 Room Air 21 08/25/17 07:23 91 Room Air 21 08/25/17 07:23 Nasal Cannula 2.0 28 08/25/17 05:48 163/83 08/25/17 04:00 97.6 70 20 163/81 92 97.6 08/25/17 00:00 97.8 67 20 152/62 86 97.8 08/24/17 23:23 152/62 08/24/17 20:48 81 150/72 08/24/17 20:24 Nasal Cannula 2.0 28 08/24/17 20:24 94 Nasal Cannula 2.0 28 08/24/17 20:23 81 22 Nasal Cannula 2.0 28 08/24/17 20:00 98.3 78 20 150/72 86 98.3 08/24/17 18:55 145/67 08/24/17 16:00 97.3 65 20 145/67 95 Room Air 97.3 08/24/17 15:48 97.3 08/24/17 14:49 97.7 08/24/17 13:08 137/78 08/24/17 12:00 97.7 109 21 137/78 96 Room Air 97.7 Intake and Output 08/24/17 08/25/17 19:00 07:00 Intake Total 915 ml Balance 915 ml Intake Oral 640 ml IV Total 275 ml # Voids 6 3 # Bowel Movements 2 Objective General Appearance: obese w/chair bound female in no acute distress HEENT: normocephalic, atraumatic, anicteric Respiratory/Chest: lungs clear, no respiratory distress Cardiovascular: no JVD,mild tachycardia Abdomen: normal bowel sounds, soft, non tender Extremities: no edema, pedal pulses normal Neurologic/Psychiatric: abnormal gait / w/c bound , alert, responsive Musculoskeletal: atrophy - BLE Current Medications Medications (Trade) Dose Ordered Sig/Ibrahima Route PRN Reason Start Time Stop Time Status Last Admin Dose Admin Acetaminophen (Tylenol) 650 mg Q4H PRN ORAL FEVER>100.5 08/11/17 09:30 09/10/17 09:29 08/18/17 20:50 Acetaminophen/ Hydrocodone Bitart ([place] 5/325) 1 tab Q6H PRN ORAL Severe Pain (Pain Scale 7-10) 08/19/17 15:30 08/26/17 15:29 08/24/17 20:49 Albuterol/ Ipratropium (Albuterol/ Ipratropium) 3 ml Q4H PRN HHN Shortness of Breath 08/22/17 12:45 08/27/17 12:44 Allopurinol (Zyloprim) 100 mg DAILY ORAL 08/12/17 10:00 09/11/17 09:59 08/25/17 08:04 Bupropion HCl (Wellbutrin) 100 mg EVERY 12 HOURS ORAL 08/11/17 21:00 09/10/17 20:59 08/25/17 08:02 Calamine (Calamine) 1 applic QIDPRN PRN TOPIC Itching 08/17/17 14:45 09/16/17 14:44 08/24/17 18:55 Clotrimazole (Lotrimin) 1 applic EVERY 12 HOURS TOPIC 08/13/17 13:00 09/12/17 12:59 08/25/17 08:05 Dextrose (Dextrose 50%) STAT PRN IV Hypoglycemia 08/11/17 09:30 09/10/17 09:29 Diphenhydramine HCl (Benadryl) 25 mg Q6H PRN ORAL Itching 08/17/17 14:45 09/16/17 14:44 08/25/17 05:48 Divalproex Sodium (Depakote) 250 mg EVERY 12 HOURS ORAL 08/11/17 21:00 09/10/17 20:59 08/25/17 08:03 Docusate Sodium (Colace) 100 mg TID PRN ORAL Constipation 08/20/17 19:00 09/19/17 18:59 08/21/17 01:00 Furosemide (Lasix) 40 mg DAILY ORAL 08/12/17 09:00 09/11/17 08:59 08/25/17 08:04 Hydralazine HCl (Apresoline) 25 mg Q6HR ORAL 08/11/17 12:00 09/10/17 11:59 08/25/17 05:48 Metoprolol Tartrate (Lopressor) 25 mg Q12HR ORAL 08/11/17 21:00 09/10/17 20:59 08/25/17 08:04 Mirtazapine (Remeron) 15 mg BEDTIME ORAL 08/11/17 21:00 09/10/17 20:59 08/24/17 20:48 Ondansetron HCl (Zofran) 4 mg Q6H PRN IVP Nausea & Vomiting 08/11/17 09:30 09/10/17 09:29 Polyethylene Glycol (Miralax) 17 gm DAILYPRN PRN ORAL Constipation 08/11/17 09:30 09/10/17 09:29 08/17/17 17:28 Promethazine HCl/ Codeine (Phenergan with Codeine) 5 ml Q4H PRN ORAL For Cough 08/11/17 14:00 09/10/17 13:59 08/25/17 05:48 Risperidone (RisperDAL) 0.25 mg BID ORAL 08/11/17 18:00 09/10/17 17:59 08/25/17 08:04 Rivaroxaban (Xarelto) 10 mg DAILY ORAL 08/12/17 09:00 09/11/17 08:59 08/25/17 08:02 Sodium Phosphate (Fleet's Sodium Phosl Enema) 133 ml DAILYPRN PRN RECTAL Constipation 08/20/17 19:00 09/19/17 18:59 Solifenacin (Vesicare) 10 mg DAILY ORAL 08/12/17 11:00 09/11/17 10:59 08/25/17 08:03 Vancomycin HCl (Vanco rx to dose) 1 ea DAILY PRN MISC Per rx protocol 08/12/17 12:45 09/11/17 12:44 Vancomycin HCl 1 gm/Dextrose 275 ml @ 183.708 mls/hr Q12HR@1100,2300 IVPB 08/23/17 11:00 08/28/17 10:59 08/24/17 23:19 Justen (Brent)Jazzy NP Aug 25, 2017 09:23
[2017-08-25] MEDS ORDERED: VANCOMYCIN1 GM/2502 IVPB (09:24)
[2017-08-25 12:00] VITALS: BP 164/71
[2017-08-25] MEDS: Vancomycin 1gm in D5W 275ml IVPB SCH (12:19)
[2017-08-25 16:00] VITALS: BP 182/80
--- NOTE | 2017-08-25 16:21 | Infectious Diseases Prog Note ---
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 No central lines or PPM present. -bcx 08/11 1/4 S. capitis (final ID resulted on 08/20); 08/12 2/4 S. hominis; Bcx 08/14 Neg -JIMY: no vegetation thickended mv -2d echo: ecogenic material on MV leaftlest- calcification vs vegetation. Moderate mitral regurgitation HOWEVER IN LIGHT OF VALVE CALCIFICATION VALDO DEGREE OF MR MAY BE MASKED BY THE CALCIFICATION Cough/fever- suspect influenza despite neg screen test; possible PNA vs pulmonary congestion; s/p Rx -no fever here so far -CXR: Left pleural effusion, new since 09/04/2016 Mild interstitial congestion - no leukocytosis Leukocytosis , resolved Pyuria/assymptomatic bacteriuria- no UTI symptoms -ucx >100K E.coli (S ceftraxone) HTN COPD long QT syndrome Aflutter CAD s/p stent ETOH abuse s/p b/l hip replacement CVA seizure disorder longterm resident Plan: -Continue IV Vancomcyin # / for CoNS bacteremia; ok to discharge on this regimen via PIV -08/18 SP Daptomycin x1 -08/16 SP Ceftriaxone #5, Tamiflu #5 -08/11 SP IV Vancomycin #1, Cefepime #1, Levaquin x1 -Monitor CBC/BMP, temperatures -aspiration precautions Subjective Allergies: Coded Allergies: NO KNOWN DRUG ALLERGIES (Unverified Allergy, Unknown, 07/11/15) Subjective afebrile no leukocytosis awaiting discharge Objective Vital Signs Last 24 Hour Vital Signs Date Time Temp Pulse Resp B/P (MAP) Pulse Ox O2 Delivery O2 Flow Rate FiO2 08/25/17 13:06 164/71 08/25/17 12:00 97.2 72 22 164/71 93 Room Air 97.2 08/25/17 08:04 70 163/83 08/25/17 08:00 97.4 73 20 150/92 92 Room Air 97.4 08/25/17 07:25 71 22 Room Air 21 08/25/17 07:23 91 Room Air 21 08/25/17 07:23 Nasal Cannula 2.0 28 08/25/17 05:48 163/83 08/25/17 04:00 97.6 70 20 163/81 92 97.6 08/25/17 00:00 97.8 67 20 152/62 86 97.8 08/24/17 23:23 152/62 08/24/17 20:48 81 150/72 08/24/17 20:24 Nasal Cannula 2.0 28 08/24/17 20:24 94 Nasal Cannula 2.0 28 08/24/17 20:23 81 22 Nasal Cannula 2.0 28 08/24/17 20:00 98.3 78 20 150/72 86 98.3 08/24/17 18:55 145/67 Height (Feet): 5 Height (Inches): 0.00 Weight (Pounds): 179 Objective General Appearance: WD/WN, cachetic Lines, tubes and drains: peripheral HEENT: normocephalic, atraumatic Neck: non-tender, supple Respiratory/Chest: rhonchi - bilaterally, rhonchi - right Cardiovascular/Chest: normal peripheral pulses, normal rate Genitourinary/Rectal: normal genital exam, heme negative stool Extremities: non-tender 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 Current Medications Medications (Trade) Dose Ordered Sig/Ibrahima Route PRN Reason Start Time Stop Time Status Last Admin Dose Admin Acetaminophen (Tylenol) 650 mg Q4H PRN ORAL FEVER>100.5 08/11/17 09:30 09/10/17 09:29 08/18/17 20:50 Acetaminophen/ Hydrocodone Bitart ([place] 5/325) 1 tab Q6H PRN ORAL Severe Pain (Pain Scale 7-10) 08/19/17 15:30 08/26/17 15:29 08/24/17 20:49 Albuterol/ Ipratropium (Albuterol/ Ipratropium) 3 ml Q4H PRN HHN Shortness of Breath 08/22/17 12:45 08/27/17 12:44 Allopurinol (Zyloprim) 100 mg DAILY ORAL 08/12/17 10:00 09/11/17 09:59 08/25/17 08:04 Bupropion HCl (Wellbutrin) 100 mg EVERY 12 HOURS ORAL 08/11/17 21:00 09/10/17 20:59 08/25/17 08:02 Calamine (Calamine) 1 applic QIDPRN PRN TOPIC Itching 08/17/17 14:45 09/16/17 14:44 08/24/17 18:55 Clotrimazole (Lotrimin) 1 applic EVERY 12 HOURS TOPIC 08/13/17 13:00 09/12/17 12:59 08/25/17 08:05 Dextrose (Dextrose 50%) STAT PRN IV Hypoglycemia 08/11/17 09:30 09/10/17 09:29 Diphenhydramine HCl (Benadryl) 25 mg Q6H PRN ORAL Itching 08/17/17 14:45 09/16/17 14:44 08/25/17 05:48 Divalproex Sodium (Depakote) 250 mg EVERY 12 HOURS ORAL 08/11/17 21:00 09/10/17 20:59 08/25/17 08:03 Docusate Sodium (Colace) 100 mg TID PRN ORAL Constipation 08/20/17 19:00 09/19/17 18:59 08/21/17 01:00 Furosemide (Lasix) 40 mg DAILY ORAL 08/12/17 09:00 09/11/17 08:59 08/25/17 08:04 Hydralazine HCl (Apresoline) 25 mg Q6HR ORAL 08/11/17 12:00 09/10/17 11:59 08/25/17 13:06 Metoprolol Tartrate (Lopressor) 25 mg Q12HR ORAL 08/11/17 21:00 09/10/17 20:59 08/25/17 08:04 Mirtazapine (Remeron) 15 mg BEDTIME ORAL 08/11/17 21:00 09/10/17 20:59 08/24/17 20:48 Ondansetron HCl (Zofran) 4 mg Q6H PRN IVP Nausea & Vomiting 08/11/17 09:30 09/10/17 09:29 Polyethylene Glycol (Miralax) 17 gm DAILYPRN PRN ORAL Constipation 08/11/17 09:30 09/10/17 09:29 08/17/17 17:28 Promethazine HCl/ Codeine (Phenergan with Codeine) 5 ml Q4H PRN ORAL For Cough 08/11/17 14:00 09/10/17 13:59 08/25/17 05:48 Risperidone (RisperDAL) 0.25 mg BID ORAL 08/11/17 18:00 09/10/17 17:59 08/25/17 08:04 Rivaroxaban (Xarelto) 10 mg DAILY ORAL 08/12/17 09:00 09/11/17 08:59 08/25/17 08:02 Sodium Phosphate (Fleet's Sodium Phosl Enema) 133 ml DAILYPRN PRN RECTAL Constipation 08/20/17 19:00 09/19/17 18:59 Solifenacin (Vesicare) 10 mg DAILY ORAL 08/12/17 11:00 09/11/17 10:59 08/25/17 08:03 Vancomycin HCl (Vanco rx to dose) 1 ea DAILY PRN MISC Per rx protocol 08/12/17 12:45 09/11/17 12:44 Vancomycin HCl 1 gm/Dextrose 275 ml @ 183.708 mls/hr Q12HR@1100,2300 IVPB 08/23/17 11:00 08/28/17 10:59 08/25/17 12:19 Danica Nayak M.D. Aug 25, 2017 16:21
[2017-08-25 17:06] VITALS: BP 182/80
--- NOTE | 2017-08-25 19:10 | General Progress Note ---
Assessment/Plan Assessment/Plan Dementia anxiety mdd -cont remeron -cont ativan -cont risperdal Subjective Date patient seen: Aug 25, 2017 Allergies: Coded Allergies: NO KNOWN DRUG ALLERGIES (Unverified Allergy, Unknown, 07/11/15) Subjective the pt is doing well Objective Last 24 Hour Vital Signs Date Time Temp Pulse Resp B/P (MAP) Pulse Ox O2 Delivery O2 Flow Rate FiO2 08/25/17 17:06 66 182/80 08/25/17 17:06 182/80 08/25/17 16:00 97.7 66 22 182/80 95 Nasal Cannula 2.0 97.7 08/25/17 13:06 164/71 08/25/17 12:00 97.2 72 22 164/71 93 Room Air 97.2 08/25/17 08:04 70 163/83 08/25/17 08:00 97.4 73 20 150/92 92 Room Air 97.4 08/25/17 07:25 71 22 Room Air 21 08/25/17 07:23 91 Room Air 21 08/25/17 07:23 Nasal Cannula 2.0 28 08/25/17 05:48 163/83 08/25/17 04:00 97.6 70 20 163/81 92 97.6 08/25/17 00:00 97.8 67 20 152/62 86 97.8 08/24/17 23:23 152/62 08/24/17 20:48 81 150/72 08/24/17 20:24 Nasal Cannula 2.0 28 08/24/17 20:24 94 Nasal Cannula 2.0 28 08/24/17 20:23 81 22 Nasal Cannula 2.0 28 08/24/17 20:00 98.3 78 20 150/72 86 98.3 Intake and Output 08/24/17 08/25/17 19:00 07:00 Intake Total 915 ml Balance 915 ml Intake Oral 640 ml IV Total 275 ml # Voids 6 3 # Bowel Movements 2 Height (Feet): 5 Height (Inches): 0.00 Weight (Pounds): 179 Luiz Morrison M.D. Aug 25, 2017 19:10
--- NOTE | 2017-08-25 19:11 | General Progress Note ---
Assessment/Plan Assessment/Plan Dementia anxiety mdd -cont remeron -cont ativan -cont risperdal Subjective Date patient seen: Aug 24, 2017 Allergies: Coded Allergies: NO KNOWN DRUG ALLERGIES (Unverified Allergy, Unknown, 07/11/15) Subjective no behavioral issues the pt is doing well Objective Last 24 Hour Vital Signs Date Time Temp Pulse Resp B/P (MAP) Pulse Ox O2 Delivery O2 Flow Rate FiO2 08/25/17 17:06 66 182/80 08/25/17 17:06 182/80 08/25/17 16:00 97.7 66 22 182/80 95 Nasal Cannula 2.0 97.7 08/25/17 13:06 164/71 08/25/17 12:00 97.2 72 22 164/71 93 Room Air 97.2 08/25/17 08:04 70 163/83 08/25/17 08:00 97.4 73 20 150/92 92 Room Air 97.4 08/25/17 07:25 71 22 Room Air 21 08/25/17 07:23 91 Room Air 21 08/25/17 07:23 Nasal Cannula 2.0 28 08/25/17 05:48 163/83 08/25/17 04:00 97.6 70 20 163/81 92 97.6 08/25/17 00:00 97.8 67 20 152/62 86 97.8 08/24/17 23:23 152/62 08/24/17 20:48 81 150/72 08/24/17 20:24 Nasal Cannula 2.0 28 08/24/17 20:24 94 Nasal Cannula 2.0 28 08/24/17 20:23 81 22 Nasal Cannula 2.0 28 08/24/17 20:00 98.3 78 20 150/72 86 98.3 Intake and Output 08/24/17 08/25/17 19:00 07:00 Intake Total 915 ml Balance 915 ml Intake Oral 640 ml IV Total 275 ml # Voids 6 3 # Bowel Movements 2 Height (Feet): 5 Height (Inches): 0.00 Weight (Pounds): 179 Luiz Morrison M.D. Aug 25, 2017 19:11
--- NOTE | 2017-08-25 19:12 | Geriatric Progress Note ---
Subjective Interval Events 08/23/17 the pt is stable doing well Mood/Memory: Reports: prior hx, anxiety, depressed feelings, emotional problems Geriatric Geriatric Last 24 Hour Vital Signs Date Time Temp Pulse Resp B/P (MAP) Pulse Ox O2 Delivery O2 Flow Rate FiO2 08/25/17 17:06 66 182/80 08/25/17 17:06 182/80 08/25/17 16:00 97.7 66 22 182/80 95 Nasal Cannula 2.0 97.7 08/25/17 13:06 164/71 08/25/17 12:00 97.2 72 22 164/71 93 Room Air 97.2 08/25/17 08:04 70 163/83 08/25/17 08:00 97.4 73 20 150/92 92 Room Air 97.4 08/25/17 07:25 71 22 Room Air 21 08/25/17 07:23 91 Room Air 21 08/25/17 07:23 Nasal Cannula 2.0 28 08/25/17 05:48 163/83 08/25/17 04:00 97.6 70 20 163/81 92 97.6 08/25/17 00:00 97.8 67 20 152/62 86 97.8 08/24/17 23:23 152/62 08/24/17 20:48 81 150/72 08/24/17 20:24 Nasal Cannula 2.0 28 08/24/17 20:24 94 Nasal Cannula 2.0 28 08/24/17 20:23 81 22 Nasal Cannula 2.0 28 08/24/17 20:00 98.3 78 20 150/72 86 98.3 Intake and Output 08/24/17 08/25/17 19:00 07:00 Intake Total 915 ml Balance 915 ml Intake Oral 640 ml IV Total 275 ml # Voids 6 3 # Bowel Movements 2 Current Medications Medications (Trade) Dose Ordered Sig/Ibrahima Route PRN Reason Start Time Stop Time Status Last Admin Dose Admin Acetaminophen (Tylenol) 650 mg Q4H PRN ORAL FEVER>100.5 08/11/17 09:30 09/10/17 09:29 08/18/17 20:50 Acetaminophen/ Hydrocodone Bitart ([place] 5/325) 1 tab Q6H PRN ORAL Severe Pain (Pain Scale 7-10) 08/19/17 15:30 08/26/17 15:29 08/24/17 20:49 Albuterol/ Ipratropium (Albuterol/ Ipratropium) 3 ml Q4H PRN HHN Shortness of Breath 08/22/17 12:45 08/27/17 12:44 Allopurinol (Zyloprim) 100 mg DAILY ORAL 08/12/17 10:00 09/11/17 09:59 08/25/17 08:04 Bupropion HCl (Wellbutrin) 100 mg EVERY 12 HOURS ORAL 08/11/17 21:00 09/10/17 20:59 08/25/17 08:02 Calamine (Calamine) 1 applic QIDPRN PRN TOPIC Itching 08/17/17 14:45 09/16/17 14:44 08/24/17 18:55 Clotrimazole (Lotrimin) 1 applic EVERY 12 HOURS TOPIC 08/13/17 13:00 09/12/17 12:59 08/25/17 08:05 Dextrose (Dextrose 50%) STAT PRN IV Hypoglycemia 08/11/17 09:30 09/10/17 09:29 Diphenhydramine HCl (Benadryl) 25 mg Q6H PRN ORAL Itching 08/17/17 14:45 09/16/17 14:44 08/25/17 17:06 Divalproex Sodium (Depakote) 250 mg EVERY 12 HOURS ORAL 08/11/17 21:00 09/10/17 20:59 08/25/17 08:03 Docusate Sodium (Colace) 100 mg TID PRN ORAL Constipation 08/20/17 19:00 09/19/17 18:59 08/21/17 01:00 Furosemide (Lasix) 40 mg DAILY ORAL 08/12/17 09:00 09/11/17 08:59 08/25/17 08:04 Hydralazine HCl (Apresoline) 25 mg Q6HR ORAL 08/11/17 12:00 09/10/17 11:59 08/25/17 17:06 Metoprolol Tartrate (Lopressor) 25 mg Q12HR ORAL 08/11/17 21:00 09/10/17 20:59 08/25/17 17:06 Mirtazapine (Remeron) 15 mg BEDTIME ORAL 08/11/17 21:00 09/10/17 20:59 08/24/17 20:48 Ondansetron HCl (Zofran) 4 mg Q6H PRN IVP Nausea & Vomiting 08/11/17 09:30 09/10/17 09:29 Polyethylene Glycol (Miralax) 17 gm DAILYPRN PRN ORAL Constipation 08/11/17 09:30 09/10/17 09:29 08/17/17 17:28 Promethazine HCl/ Codeine (Phenergan with Codeine) 5 ml Q4H PRN ORAL For Cough 08/11/17 14:00 09/10/17 13:59 08/25/17 17:06 Risperidone (RisperDAL) 0.25 mg BID ORAL 08/11/17 18:00 09/10/17 17:59 08/25/17 17:06 Rivaroxaban (Xarelto) 10 mg DAILY ORAL 08/12/17 09:00 09/11/17 08:59 08/25/17 08:02 Sodium Phosphate (Fleet's Sodium Phosl Enema) 133 ml DAILYPRN PRN RECTAL Constipation 08/20/17 19:00 09/19/17 18:59 Solifenacin (Vesicare) 10 mg DAILY ORAL 08/12/17 11:00 09/11/17 10:59 08/25/17 08:03 Vancomycin HCl (Vanco rx to dose) 1 ea DAILY PRN MISC Per rx protocol 08/12/17 12:45 09/11/17 12:44 Vancomycin HCl 1 gm/Dextrose 275 ml @ 183.708 mls/hr Q12HR@1100,2300 IVPB 08/23/17 11:00 08/28/17 10:59 08/25/17 12:19 Height (Feet): 5 Height (Inches): 0.00 Weight (Pounds): 179 General Appearance: well appearing, well dressed, well nourished, no apparent distress, alert Psychiatric Orientation: person, place, time, situation Affect: appropriate Luiz Morrison M.D. Aug 25, 2017 19:12
--- NOTE | 2017-08-28 11:10 | Discharge Summary ---
Discharge Summary Hospital Course Date of Admission Aug 11, 2017 at 05:03 Date of Discharge Aug 25, 2017 at 19:15 Admitting Diagnosis Pneumonia HPI Ashlee Rodriguez is a 76 year old female who was admitted on Aug 11, 2017 at 05:03 for Pneumonia Hospital Course dc summary #[id number] Discharge Medications New Medications: Vancomycin Hcl/D5w (Vancomycin-D5w 1 G/250 Ml) 1 Gm/250 Ml Plast..bag 1.5 GM IVPB Q24H for 1 Day, #1 BAG Continued Medications: Acetaminophen (Acetaminophen) 650 Mg/20.3 Ml Solution 650 MG ORAL Q4HR PRN for Mild Pain/Temp > 100.5, ML 0 Refills (This prescription has been renewed) Al Hydroxide/mg Hydroxide (Mag-Al Plus Suspension) 30 Ml Oral.susp 30 ML PO prn Q6hr for dyspepsia, ML (This prescription has been renewed) Allopurinol* (Allopurinol*) 100 Mg Tablet 100 MG ORAL DAILY for 30 Days, TAB Atorvastatin Calcium* (Lipitor*) 10 Mg Tablet 10 MG ORAL BEDTIME, #30 TAB Bisacodyl* (Dulcolax*) 5 Mg Tablet.dr 10 MG RECTAL ONCE PRN for Constipation, #4 TAB 0 Refills Bisacodyl* (Dulcolax*) 5 Mg Tablet.dr 10 MG ORAL PRN daily for Constipation, #10 TAB 0 Refills (This prescription has been renewed) Bupropion HCl (Wellbutrin) 100 Mg Tab 100 MG ORAL EVERY 12 HOURS, TAB (This prescription has been renewed) Divalproex Sodium (Depakote) 500 Mg Tabec 250 MG ORAL EVERY 12 HOURS, TAB (This prescription has been renewed) Docusate Sodium* (Docusate Sodium*) 250 Mg Capsule 250 MG ORAL DAILY, CAP Furosemide* (Lasix*) 40 Mg Tablet 40 MG ORAL DAILY, TAB (This prescription has been renewed) Take 1 tablet by mouth every day. Hydralazine HCl (Hydralazine HCl) 25 Mg Tablet 25 MG PO Q6HR, TAB Hydrocodone Bit/Acetaminophen 5-325* (Ves[place] 5-325 Tablet*) 1 Each Tablet 1 TAB ORAL Q6HR PRN for For Pain, TAB Metoprolol Tartrate (Metoprolol Tartrate) 25 Mg Tab 25 MG ORAL Q12HR, #60 TAB Mirtazapine* (Mirtazapine*) 15 Mg Tablet 15 MG ORAL BEDTIME, TAB Multivitamin With Minerals (Multivitamins With Minerals*) 1 Each Tablet 1 TAB ORAL DAILY, TAB (This prescription has been renewed) [place]-3 Fatty Acids/Fish Oil (Fish Oil 1,000 Mg Capsule) 1 Each Capsule 1000 MG ORAL DAILY, #30 CAP 0 Refills Polyethylene Glycol 3350* (Miralax*) 17 Gm Powd.pack 17 GM ORAL PRN at bedtime PRN for Constipation, PACKET (This prescription has been renewed) Promethazine/Phenyleph/Codeine (Promethazine Vc-Codeine Syrup) 118 Ml Syrup 10 ML ORAL Q4H PRN for For Cough, ML 0 Refills Ranitidine Hcl (Ranitidine Hcl) 150 Mg Capsule 150 MG ORAL BEDTIME, CAP Risperidone* (Risperdal*) 0.25 Mg Tablet 0.25 MG ORAL BID, #30 TAB 0 Refills (This prescription has been renewed) Rivaroxaban (Xarelto*) 10 Mg Tablet 10 MG ORAL DAILY, #30 TAB 0 Refills (This prescription has been renewed) Solifenacin Succinate (Vesicare*) 10 Mg Tablet 10 MG ORAL DAILY, TAB (This prescription has been renewed) Tramadol Hcl* (Ultram*) 50 Mg Tablet 50 MG ORAL Q12HR PRN for For Pain, #30 TAB 0 Refills Trazodone Hcl* (Desyrel*) 50 Mg Tablet 25 MG ORAL BEDTIME, TAB (This prescription has been renewed) Zolpidem Tartrate* (Ambien*) 5 Mg Tablet 5 MG ORAL BEDTIME PRN for Insomnia, TAB Discontinued Medications: Bupropion Hcl* (Bupropion Hcl Sr*) 150 Mg Tablet.er 200 MG ORAL DAILY, TAB Ceftriaxone Sodium (Ceftriaxone) 1 Gm Vial 1 GM IVPB DAILY, VIAL Diphenoxylate Hcl/Atropine (Lomotil Tablet) 1 Each Tablet 2.5 MG ORAL EVERY 6 HOURS, #30 TAB 0 Refills Hydrocodone Bit/Acetaminophen 5-325* (Vesper 5-325*) 1 Each Tablet 1 TAB ORAL Q4H PRN for For Pain, TAB 0 Refills Ibuprofen* (Motrin*) 600 Mg Tablet 600 MG ORAL Q6H PRN for For Pain, #30 TAB Lisinopril (Lisinopril*) 5 Mg Tablet 5 MG ORAL DAILY, #30 TAB Lorazepam (Lorazepam) 4 Mg/1 Ml Vial 4 MG IV, VIAL Lorazepam* (Lorazepam*) 0.5 Mg Tablet 0.5 MG IV PRN Q 4 hours PRN for For Anxiety, TAB Lorazepam (Lorazepam) 2 Mg/1 Ml Syringe 2 MG IV Q4H, EA Nitrofurantoin Monohyd/M-Cryst* (Macrobid 100 Mg*) 100 Mg Capsule 100 MG ORAL EVERY 12 HOURS for 10 Days, #20 CAP Nitroglycerin (Nitroglycerin Patch) 1 Each Patch.td24 1 EACH TD Q6HR, PATCH Ondansetron* (Zofran*) 4 Mg/2 Ml Vial 4 MG IV Q6H PRN for Nausea & Vomiting, VIAL Oxycodone Hcl* (Oxycodone Hcl*) 15 Mg Tablet 30 MG ORAL Q8H PRN for For Pain, #30 TAB 0 Refills Pantoprazole* (Protonix*) 40 Mg Tablet.dr 40 MG ORAL DAILY, TAB Pseudoephedrine Hcl (Sudogest) 30 Mg Tablet 30 MG PO bid prn, TAB Risperidone* (Risperdal*) 1 Mg Tablet 3 MG ORAL BEDTIME, #30 TAB Rivaroxaban (Xarelto*) 10 Mg Tablet 20 MG ORAL DAILY, #30 TAB 0 Refills Solifenacin Succinate (Vesicare*) 10 Mg Tablet 10 MG ORAL DAILY, TAB Sulfamethoxazole/Trimethoprim Ds Tablet* (Sulfamethoxazole-Tmp Ds Tablet*) 1 Each Tablet 1 TAB ORAL TWICE A DAY, TAB Vancomycin Hcl (Vancomycin) 1 Gm Vial 1 GM IV Q12HR, VIAL Discharge Condition Upon Discharge: stable Discharge Disposition Patient was discharged to Discharge Instructions Discharge Instructions Special Instructions Justen (Brent)Jazzy NP Aug 28, 2017 11:10
--- NOTE | 2017-08-28 21:30 | Discharge Summary 2 SIG ---
DATE OF ADMISSION: 08/11/2017 DATE OF DISCHARGE: 08/25/2017 [employer] SUPERVISOR: 1. Akbar Reno M.D., Cardiology. 2. Luiz Morrison M.D., psychiatrist. 3. Juan Moeller M.D., Infectious Disease. REASON FOR ADMISSION: The patient is a 76 years old female, resident of care home facility with past medical history significant for hypertension, COPD, CHF, alcohol abuse, atrial flutter, and seizure disorder, presented with chief complaint, was sent from the care home [facility] with chief complaint of productive cough and fever for one day. Upon evaluation, the patient showed no leukocytosis, stable hemoglobin and hematocrit. The patient required placement on supplemental oxygen with saturation of 99% and thereafter sodium was 126. Troponin negative. Urinalysis with evidence of urinary tract infection. EKG shows normal sinus rhythm, no acute ischemic changes. EKG and chest x-ray shows right middle lobe infiltrate. The patient admitted with healthcare-associated pneumonia, UTI, COPD likely exacerbation, seizure disorder, bipolar, depression, and history of pacemaker. HOSPITAL COURSE: The patient admitted and started on empiric antibiotics. Pulmonary toilet provided by way of the handheld nebulizing and chest physical therapy. Supplemental oxygen was titrated to keep pulse oximetry above 92%. DVT prophylaxis provided. Blood culture revealed Staph capitis and urine culture revealed E. coli. Influenza screen was negative. Repeated blood culture shows Staph hominis. Echocardiogram revealed no evidence of vegetation, but showed normal left ventricular chamber size, systolic function, wall motion, moderate mitral regurgitation, however, in light of valve calcification, the degree of mitral regurgitation calcification. Right ventricular systolic pressure of 81 consistent with severe pulmonary hypertension, no evidence of vegetation. Due to the persistent bacteremia, Infectious Disease specialist recommended JIMY, subsequently was done and revealed no vegetation, but showed thick mitral valve. Last blood culture on 08/14/2017 was negative. Blood pressure was managed with hydralazine, beta-anil, and diuretic. Renal parameters and electrolytes were closely monitored. Electrolytes replaced as needed. Nephrotoxics were avoided. Seizure precautions were maintained. Depakote was continued. Video swallow study showed no aspiration. Psychiatrist seen and evaluated the patient, diagnosed the patient with major depressive disorder and anxiety and optimized psychiatric medication regimen. Wound care for right heel stage I pressure ulcer present on admission and left anterior second toe pressure ulcer present on admission, was provided as per wound care nurse recommendation. According to ID, the patient has a pyuria/asymptomatic bacteriuria, no urinary complaints. The patient worked with physical and occupational therapist. The patient was on vancomycin, need to complete treatment at the care home facility. Bowel regimen instituted. Influenza vaccine given. The patient was stable for discharge to care home facility. FINAL DIAGNOSES: Include: 1. Healthcare-associated pneumonia, status post treatment. 2. Persistent Staph hominis bacteremia. 3. COPD. 4. Hypertension. 5. Atrial flutter. 6. Coronary artery disease with history of stent placement. 7. History of cerebrovascular accident. 8. Seizure disorder. 9. History of alcohol abuse. 10. Major depression disorder. 11. Anxiety. 12. Right heel stage I pressure ulcer, present on admission. 13. Left anterior second toe pressure ulcer, present on admission. 14. Asymptomatic bacteriuria. 15. Dementia. 16. Hyponatremia, resolved with IV solution, sodium 139 on the day of discharge. Mendel Sierra M.D. I have been assigned to dictate discharge summary on this account and I was not involved in the patient's management. Jazzy angelvira N.P. DR: BREANA JOB#: [id number] CC:
== END 2017-08-25 19:15 | DRG 194 ==
LOC: EDBD 02:19 → EMR 02:31 → 4E 05:03 → EDBEDREQ 05:11
PROC: B24BZZ4 Ultrasonography of Heart with Aorta, Transesophageal (ICD-10-PCS; principal; 2017-08-19 13:38)
DX: J18.9 Pneumonia, unspecified organism (principal); F31.30 Bipolar disorder, current episode depressed, mild or moderate severity, unspecified; J90 Pleural effusion, not elsewhere classified; R78.81 Bacteremia; I48.92 Unspecified atrial flutter; G40.909 Epilepsy, unspecified, not intractable, without status epilepticus; I48.91 Unspecified atrial fibrillation; F03.90 Unspecified dementia, unspecified severity, without behavioral disturbance, psychotic disturbance, mood disturbance, and anxiety; I27.20 Pulmonary hypertension, unspecified; J44.0 Chronic obstructive pulmonary disease with (acute) lower respiratory infection; I10 Essential (primary) hypertension; N39.0 Urinary tract infection, site not specified; J44.1 Chronic obstructive pulmonary disease with (acute) exacerbation; F10.239 Alcohol dependence with withdrawal, unspecified; J11.1 Influenza due to unidentified influenza virus with other respiratory manifestations; R62.7 Adult failure to thrive; Z99.3 Dependence on wheelchair; I25.10 Atherosclerotic heart disease of native coronary artery without angina pectoris; Z98.61 Coronary angioplasty status; Z96.643 Presence of artificial hip joint, bilateral; Z79.01 Long term (current) use of anticoagulants; I45.81 Long QT syndrome; Z95.0 Presence of cardiac pacemaker; B96.20 Unspecified Escherichia coli [E. coli] as the cause of diseases classified elsewhere; L89.611 Pressure ulcer of right heel, stage 1
CPT/HCPCS: 36415; 71045; 74230; 80053; 80069; 80202; 81003; 82550; 82553; 83605; 83735; 84100; 84484; 85025; 85610; 85651; 85730; 86710; 87040; 87086; 87181; 90630; 93005; 93306; 93312; 93970; 94003; 94150; 94640; 94664; 94760; 99285

== ENCOUNTER 2017-10-16 15:29 | Inpatient (IN) | payer MEDICARE, OTHER ==
[~2017-10-16] VITALS: Ht 160 cm; Wt 76.7 kg
[~2017-10-16 15:29] MED LIST changes: +MULTIVITAMINS1 EAC8 ORAL; +PROTONIX40 MG ORAL; +VANCOMYCIN1 GM/2502 IVPB
[2017-10-16 15:30] VITALS: BP 124/76
[2017-10-16] MEDS ORDERED: Sodium Chloride 500ML 500 ML IV ONE (15:53)
--- NOTE | 2017-10-16 16:22 | Emergency Room Report ---
History of Present Illness General Chief Complaint: Altered Mental Status Source: Medical Record Present Illness HPI 76-year-old female presents ED for evaluation. Patient brought in by EMS from longterm facility. Per nursing staff patient appears more erratic behavior since this morning. Upon arrival patient states she feel weak. Denies fevers or chills. Denies chest pain or shortness of breath. States she feels nauseous. Denies vomiting. Also notes a persistent cough since this morning. Cough is productive with yellowish phlegm. Afebrile. No other aggravating relieving factors. Denies any other associated symptoms Allergies: Coded Allergies: NO KNOWN DRUG ALLERGIES (Unverified Allergy, Unknown, 07/11/15) Patient History Past Medical History: arrhyth, GERD, seizures Social History: Denies: smoking, alcohol use, drug use Now: No Immunizations: UTD Reviewed Nursing Documentation: PMH: Agreed; PSxH: Agreed Nursing Documentation-PM Past Medical History: No History, Except For Hx Cardiac Problems: Yes - Long QT syndrome; HF; atrial flutter Hx Hypertension: Yes - muscle weakness , idiopathic gout Hx Pacemaker: No - stent Hx Asthma: No Hx COPD: Yes Hx Diabetes: No Hx Cancer: No Hx Gastrointestinal Problems: Yes - ETOH abuse, GERD Hx Dialysis: No Hx Neurological Problems: Yes - bilat hip replacement, non-ambulatory Hx Cerebrovascular Accident: Yes Hx Dementia: Yes Hx Seizures: Yes - epilepsy Hx Tremors: Yes Hx Vertigo: Yes Hx Dizziness: Yes Hx Syncope: Yes Hx Headaches: Yes - occasional Hx Weakness: Yes - BLE Hx Fatigue: Yes Review of Systems All Other Systems: negative except mentioned in HPI Physical Exam Vital Signs Date Time Temp Pulse Resp B/P (MAP) Pulse Ox O2 Delivery O2 Flow Rate FiO2 10/16/17 15:30 98.0 80 20 124/76 99 Room Air 98.0 Sp02 EP Interpretation: reviewed, normal General Appearance: no apparent distress, alert, GCS 15, non-toxic Head: normocephalic, atraumatic Eyes: bilateral eye normal inspection, bilateral eye PERRL ENT: hearing grossly normal, normal pharynx, no angioedema, normal voice Neck: full range of motion, supple/symm/no masses Respiratory: chest non-tender, crackles, speaking full sentences Cardiovascular #1: regular rate, rhythm, no edema Cardiovascular #2: 2+ carotid (R), 2+ carotid (L), 2+ radial (R), 2+ radial (L) , 2+ dorsalis pedis (R), 2+ dorsalis pedis (L) Gastrointestinal: normal bowel sounds, non tender, soft, non-distended, no guarding, no rebound Rectal: deferred Genitourinary: normal inspection, no CVA tenderness Musculoskeletal: back normal, gait/station normal, normal range of motion, non- tender Neurologic: alert, oriented x3, responsive, motor strength/tone normal, sensory intact, speech normal Psychiatric: judgement/insight normal, memory normal, mood/affect normal, no suicidal/homicidal ideation Reflexes: 3+ bicep (R), 3+ bicep (L), 3+ tricep (R), 3+ tricep (L), 3+ knee (R) , 3+ knee (L) Skin: normal color, no rash, warm/dry, well hydrated Lymphatic: no adenopathy Medical Decision Making Diagnostic Impression: Primary Impression: Generalized weakness Additional Impressions: Pneumonia Qualified Codes: J18.1 - Lobar pneumonia, unspecified organism UTI (lower urinary tract infection) ER Course Hospital Course 76-year-old female presents ED complaining of cough, weakness nausea Differential diagnoses include: Pneumonia, CHF exacerbation, pneumothorax, fluid overload Clinical course Patient placed on stretcher. On quality assurance monitor body. After initial history and physical, I ordered labs, IV fluids, EKG, chest x-ray, blood cultures, UA. Labs - no leukocytosis, hemoglobin/hematocrit stable, electrolytes okay, lactate okay, UA + bacteria CXR - increased atelectasis/consolidation lower lung murillo ? PNA abx given. Case discussed with Dr. Sierra and he agreed to the patient to his service for further care and support I feel this is a highly complex case requiring extensive working including EKG/ Rhythm strip, Xray/CT/US, Blood/urine lab work, repeat exams while in ED, and administration of strong opiates/narcotics for pain control, admission to hospital or close patient follow up. Diagnosis - generalized weakness, UTI, pneumonia Patient admitted to floor in serious condition Labs Test 10/16/17 16:39 10/16/17 17:50 White Blood Count 7.8 K/UL (4.8-10.8) Red Blood Count 4.22 M/UL (4.20-5.40) Hemoglobin 12.8 G/DL (12.0-16.0) Hematocrit 37.8 % (37.0-47.0) Mean Corpuscular Volume 90 FL (80-99) Mean Corpuscular Hemoglobin 30.4 PG (27.0-31.0) Mean Corpuscular Hemoglobin Concent 33.9 G/DL (32.0-36.0) Red Cell Distribution Width 14.3 % (11.6-14.8) Platelet Count 128 K/UL (150-450) Mean Platelet Volume 7.7 FL (6.5-10.1) Neutrophils (%) (Auto) 64.7 % (45.0-75.0) Lymphocytes (%) (Auto) 19.7 % (20.0-45.0) Monocytes (%) (Auto) 7.9 % (1.0-10.0) Eosinophils (%) (Auto) 6.7 % (0.0-3.0) Basophils (%) (Auto) 1.1 % (0.0-2.0) Sodium Level 142 MMOL/L (136-145) Potassium Level 3.2 MMOL/L (3.5-5.1) Chloride Level 105 MMOL/L (98-107) Carbon Dioxide Level 29 MMOL/L (21-32) Anion Gap 8 mmol/L (5-15) Blood Urea Nitrogen 11 mg/dL (7-18) Creatinine 0.8 MG/DL (0.55-1.30) Estimat Glomerular Filtration Rate mL/min (>60) Glucose Level 109 MG/DL (74-106) Lactic Acid Level 1.30 mmol/L (0.66-2.22) Calcium Level 7.7 MG/DL (8.5-10.1) Total Bilirubin 0.3 MG/DL (0.2-1.0) Aspartate Amino Transf (AST/SGOT) 13 U/L (15-37) Alanine Aminotransferase (ALT/SGPT) < 6 U/L (12-78) Alkaline Phosphatase 62 U/L (46-116) Pro-B-Type Natriuretic Peptide 1336 pg/mL (0-125) Total Protein 5.7 G/DL (6.4-8.2) Albumin 2.4 G/DL (3.4-5.0) Globulin 3.3 g/dL Albumin/Globulin Ratio 0.7 (1.0-2.7) Urine Color Pale yellow Urine Appearance Cloudy Urine pH 7 (4.5-8.0) Urine Specific [place] 1.005 (1.005-1.035) Urine Protein 1+ (NEGATIVE) Urine Glucose (UA) Negative (NEGATIVE) Urine Ketones Negative (NEGATIVE) Urine Occult Blood 2+ (NEGATIVE) Urine Nitrite Positive (NEGATIVE) Urine Bilirubin Negative (NEGATIVE) Urine Urobilinogen 1 MG/DL (0.0-1.0) Urine Leukocyte Esterase 3+ (NEGATIVE) Chest X-Ray Diagnostic Results Chest X-Ray Diagnostic Results : Chest X-Ray Ordered: Yes # of Views/Limited/Complete: 1 View Indication: Other - cough EP Interpretation: Yes Interpretation: no pneumothorax, other - ? infiltrtate Impression: Other - pna Electronically Signed by: Electronically signed by Holden Victoria MD Last Vital Signs Date Time Temp Pulse Resp B/P (MAP) Pulse Ox O2 Delivery O2 Flow Rate FiO2 10/16/17 15:32 95.0 61 20 119/64 95 Room Air 95.0 Status: improved Disposition: ADMITTED INPATIENT Condition: Serious Holden Victoria MD October 16, 2017 16:22
[2017-10-16] MEDS ORDERED: ARTIFICIAL TEAR15 ML BOTH EYES (16:28)
[2017-10-16] MEDS ORDERED: FISH OIL 1,0001 EAC1 ORAL (16:30)
[2017-10-16] MEDS ORDERED: XARELTO10 MG ORAL (16:32)
[2017-10-16 17:04] LABS: BASOPHILS % (AUTO) 1.1 % (0.0-2.0); EOSINOPHILS % (AUTO) 6.7 % (0.0-3.0); HEMATOCRIT 37.8 % (37.0-47.0); HEMOGLOBIN 12.8 G/DL (12.0-16.0); LYMPHOCYTES % (AUTO) 19.7 % (20.0-45.0); MEAN CORPUSCULAR VOLUME 90 FL (80-99); MONOCYTES % (AUTO) 7.9 % (1.0-10.0); NEUTROPHILS % (AUTO) 64.7 % (45.0-75.0); PLATELET COUNT 128 K/UL (150-450); RED BLOOD COUNT 4.22 M/UL (4.20-5.40); RED CELL DISTRIBUTION WIDTH 14.3 % (11.6-14.8); WHITE BLOOD COUNT 7.8 K/UL (4.8-10.8)
[2017-10-16 17:16] LABS: ANION GAP 8 mmol/L (5-15); BLOOD UREA NITROGEN 11 mg/dL (7-18); CALCIUM 7.7 MG/DL (8.5-10.1); CARBON DIOXIDE 29 MMOL/L (21-32); CHLORIDE 105 MMOL/L (98-107); CREATININE 0.8 MG/DL (0.55-1.30); POTASSIUM 3.2 MMOL/L (3.5-5.1); SODIUM 142 MMOL/L (136-145)
[2017-10-16 17:27] LABS: ALANINE AMINOTRANSFERASE < 6 U/L (12-78); ALBUMIN 2.4 G/DL (3.4-5.0); ALBUMIN/GLOBULIN RATIO 0.7 (1.0-2.7); ALKALINE PHOSPHATASE 62 U/L (46-116); ASPARTATE AMINO TRANSFERASE 13 U/L (15-37); BILIRUBIN,TOTAL 0.3 MG/DL (0.2-1.0)
--- NOTE | 2017-10-16 17:33 | Diagnostic Imaging Report ---
Indication: Cough Technique: One view of the chest Comparison: 08/13/2017 Findings: The heart is mildly enlarged. The patient is rotated to the left. The left lateral hemidiaphragm is obscured. This is probably due to overlying soft tissue, but pleural and/or parenchymal disease at the left lateral lung base is also possible. The remainder of the lungs and pleural spaces are clear an previously demonstrated interstitial congestion has improved. Again demonstrated is a power pack overlying the lower heart and dense mitral annular calcifications. Impression: Obscured left lateral hemidiaphragm, possibly on the basis of overlying soft tissue opacities but pleural fluid and/or basilar parenchymal disease also possible Mild cardiomegaly Improved interstitial congestion since 08/13/2017
[2017-10-16 18:10] LABS: APPEARANCE,URINE CLOUDY; BILIRUBIN, URINE NEGATIVE (NEGATIVE); COLOR,URINE PALE YELLOW; GLUCOSE, URINE (UA) NEGATIVE (NEGATIVE); KETONES,URINE NEGATIVE (NEGATIVE); LEUKOCYTE ESTERASE ,URINE 3+ (NEGATIVE); NITRITE,URINE POSITIVE (NEGATIVE); PH,URINE 7 (4.5-8.0); PROTEIN,URINE 1+ (NEGATIVE); UROBILINOGEN,URINE 1 MG/DL (0.0-1.0)
[2017-10-16] MEDS ORDERED: DEPAKOTE250 MG PO (18:33)
[2017-10-16] MEDS ORDERED: LISINOPRIL5 MG ORAL (18:41)
[2017-10-16] MEDS ORDERED: NITROFURANTOIN100 M2 ORAL (18:44)
[2017-10-16] MEDS ORDERED: BACTRIM DS TAB1 EAC1 ORAL (18:44)
[2017-10-16] MEDS ORDERED: PANTOPRAZOLE SO40 MG ORAL (18:44)
[2017-10-16] MEDS ORDERED: NITROGLYCERIN1 EAC2 TD (18:44)
[2017-10-16] MEDS ORDERED: VANCOMYCIN IV ×2 (18:45→18:48)
[2017-10-16 18:46] VITALS: BP 120/76
[2017-10-16] MEDS ORDERED: BISACODYL10 M1 RC (18:48)
[2017-10-16 20:00] VITALS: BP 142/61
[2017-10-16] MEDS ORDERED: Mylanta II UD 30ml ORAL PRN (20:00)
[2017-10-16] MEDS ORDERED: Albuterol/Ipratropium 3ml neb HHN PRN (20:00)
[2017-10-16] MEDS ORDERED: Miralax 17gm pkt ORAL PRN (20:00)
[2017-10-16] MEDS ORDERED: Nitroglycerin Subl 0.4mg tab SL PRN (20:00)
[2017-10-16] MEDS: Cefepime HCl 1 GM in D5W 55 ML IV SCH (21:02)
[2017-10-16] MEDS ORDERED: Vancomycin 1.5 GM/D5W 250ML IVPB ONE (22:00)
[2017-10-16] MEDS: HydrALAZINE 25mg tab ORAL SCH (23:57)
[2017-10-17] VITALS: BP 154/96
[2017-10-17 04:00] VITALS: BP 127/95
[2017-10-17] MEDS: HydrALAZINE 25mg tab ORAL SCH ×3 (06:02→17:55)
[2017-10-17 08:00] VITALS: BP 147/59
[2017-10-17 08:07] LABS: BASOPHILS % (AUTO) 0.9 % (0.0-2.0); EOSINOPHILS % (AUTO) 5.7 % (0.0-3.0); HEMATOCRIT 39.1 % (37.0-47.0); HEMOGLOBIN 13.1 G/DL (12.0-16.0); LYMPHOCYTES % (AUTO) 16.2 % (20.0-45.0); MEAN CORPUSCULAR VOLUME 90 FL (80-99); MONOCYTES % (AUTO) 8.2 % (1.0-10.0); NEUTROPHILS % (AUTO) 69.1 % (45.0-75.0); PLATELET COUNT 121 K/UL (150-450); RED BLOOD COUNT 4.32 M/UL (4.20-5.40); RED CELL DISTRIBUTION WIDTH 14.2 % (11.6-14.8); WHITE BLOOD COUNT 7.8 K/UL (4.8-10.8)
[2017-10-17 08:39] LABS: ALBUMIN 2.5 G/DL (3.4-5.0); ANION GAP 4 mmol/L (5-15); BLOOD UREA NITROGEN 9 mg/dL (7-18); CALCIUM 8.2 MG/DL (8.5-10.1); CARBON DIOXIDE 33 MMOL/L (21-32); CHLORIDE 105 MMOL/L (98-107); CREATININE 0.8 MG/DL (0.55-1.30); PHOSPHORUS 4.2 MG/DL (2.5-4.9); POTASSIUM 3.6 MMOL/L (3.5-5.1); SODIUM 142 MMOL/L (136-145)
[2017-10-17] MEDS: Xarelto 10mg tab ORAL SCH (09:04)
[2017-10-17] MEDS: Cefepime HCl 1 GM in D5W 55 ML IV SCH (09:04)
[2017-10-17] MEDS: Allopurinol 100mg Tab ORAL SCH (09:05)
[2017-10-17] MEDS: Lisinopril 2.5mg tab ORAL SCH (09:06)
[2017-10-17] MEDS ORDERED: Vancomycin 1250mg/D5W 250ml IVPB SCH (10:00)
[2017-10-17 12:00] VITALS: BP 120/58
--- NOTE | 2017-10-17 13:51 | Consultation ---
Consult Note Consult Note [id number] Juan Moeller MD October 17, 2017 13:51
--- NOTE | 2017-10-17 14:36 | Consultation ---
History of Present Illness General Date patient seen: October 17, 2017 Chief Complaint: Altered Mental Status Present Illness HPI 76-year-old female presents ED for more erratic behavior since this morning. the pt has hx of depression and agitation. During the eval the pt was anxious and depressed. somewhat confused. the pt was not having any agitation. Allergies: Coded Allergies: NO KNOWN DRUG ALLERGIES (Unverified Allergy, Unknown, 07/11/15) Medication History Scheduled Al Hydroxide/mg Hydroxide (Mag-Al Plus Suspension), 30 ML PO prn Q6hr, (Reported ) Allopurinol* (Allopurinol*), 100 MG ORAL DAILY Atorvastatin Calcium* (Lipitor*), 10 MG ORAL BEDTIME Bisacodyl* (Dulcolax*), 10 MG ORAL PRN daily, (Reported) Bupropion HCl (Wellbutrin), 100 MG ORAL EVERY 12 HOURS, (Reported) Divalproex Sodium* (Depakote*), 250 MG PO Q12HR, (Reported) Docusate Sodium* (Docusate Sodium*), 250 MG ORAL DAILY, (Reported) Furosemide* (Lasix*), 40 MG ORAL DAILY, (Reported) Hydralazine HCl (Hydralazine HCl), 25 MG PO Q6HR, (Reported) Lisinopril (Lisinopril*), 5 MG ORAL DAILY, (Reported) Metoprolol Tartrate (Metoprolol Tartrate), 25 MG ORAL Q12HR Mirtazapine* (Mirtazapine*), 15 MG ORAL BEDTIME, (Reported) Multivitamin With Minerals (Multivitamins With Minerals*), 1 TAB ORAL DAILY, ( Reported) Nitrofurantoin Monohyd/M-Cryst* (Macrobid 100 Mg*), 100 MG ORAL EVERY 12 HOURS, (Reported) Nitroglycerin (Nitroglycerin Patch), 1 EACH TD Q6HR, (Reported) Kaleva-3 Fatty Acids/Fish Oil* (Fish Oil 1,000 Mg Softgel*), 1 CAP ORAL DAILY, ( Reported) Pantoprazole* (Pantoprazole*), 40 MG ORAL DAILY, (Reported) Pseudoephedrine Hcl (Sudogest), 30 MG PO BID, (Reported) Ranitidine Hcl (Ranitidine Hcl), 150 MG ORAL BEDTIME, (Reported) Risperidone* (Risperdal*), 0.25 MG ORAL BID, (Reported) Rivaroxaban (Xarelto*), 10 MG ORAL DAILY, (Reported) Solifenacin Succinate (Vesicare*), 10 MG ORAL DAILY, (Reported) Trimethoprim/Sulfamethoxazole 160/800* (Bactrim Ds Tablet*), 1 TAB ORAL TWICE A DAY, (Reported) Vancomycin/0.9 % Sod Chloride (Vancomycin-0.9% NaCl 1 G/250), 1 GM IV Q12HR, ( Reported) Scheduled PRN Acetaminophen (Acetaminophen), 650 MG ORAL Q4HR PRN for Mild Pain/Temp > 100.5, (Reported) Bisacodyl (Bisacodyl), 10 MG RC for Constipation, (Reported) Hydrocodone Bit/Acetaminophen 5-325* ([place] 5-325 Tablet*), 1 TAB ORAL Q6HR PRN for For Pain, (Reported) Polyethylene Glycol 3350* (Miralax*), 17 GM ORAL PRN at bedtime PRN for Constipation, (Reported) Promethazine/Phenyleph/Codeine (Promethazine Vc-Codeine Syrup), 10 ML ORAL Q4H PRN for For Cough, (Reported) Tramadol Hcl* (Ultram*), 50 MG ORAL Q12HR PRN for For Pain, (Reported) Zolpidem Tartrate* (Ambien*), 5 MG ORAL BEDTIME PRN for Insomnia, (Reported) Miscellaneous Medications Dextran 70/Hypromellose (Artificial Tears Eye Drops*), 1 DROP BOTH EYES, ( Reported) Patient History Limited by: medical condition History Provided By: Patient, Medical Record, PMD Healthcare decision maker Resuscitation status Full Code Advanced Directive on File Past Medical/Surgical History Past Medical/Surgical History: (1) COPD (chronic obstructive pulmonary disease) (2) Bipolar depression (3) Cerebral vascular disease (4) H/O ETOH abuse (5) Wheelchair bound (6) Lumbago (7) Low back pain (8) Epistaxis (9) Hypovolemic shock (10) Hemorrhagic shock (11) Dehydration (12) Hypokalemia (13) Hypochloremia (14) Iron deficiency (15) Hypocalcemia (16) Insomnia (17) Insomnia (18) Contusion of knee (19) Contusion of knee (20) Herpes labialis (21) Scabies (22) Gout (23) Anemia (24) Anxiety (25) Arthritis (26) Back pain (27) Contusion (28) Diarrhea (29) Failure to thrive (30) Gastrointestinal bleeding (31) Cephalgia (32) Headache (33) Hypercholesteremia (34) Hyponatremia (35) Hyponatremia (36) Major depression (37) Phlebitis (38) Pulmonary edema (39) Rash and other nonspecific skin eruption (40) Syncope (41) Vertigo (42) Sepsis (43) ATN (acute tubular necrosis) (44) A-fib (45) Insect bite (46) Sore throat (47) Sore throat (48) Compression fracture (49) Chronic low back pain (50) Chronic pain (51) Encephalopathy acute (52) GI bleed (53) Head trauma (54) Multiple joint pain (55) UTI (lower urinary tract infection) (56) UTI (lower urinary tract infection) (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 (58) Eye problem (59) Eye problem (60) Osteoarthritis of multiple joints (61) Anemia, chronic disease (62) Foot ulcer, right (63) Osteomyelitis of toe of right foot (64) Diastolic CHF, acute on chronic (65) Foot contusion (66) Fracture, supracondylar, elbow, left, closed (67) Sprain of left elbow (68) Cellulitis of toe of right foot (69) Abrasion of knee, right (70) Abrasion of knee (71) Atrial fibrillation with RVR (72) Atrial fibrillation with RVR (73) Scalp abrasion (74) Scalp abrasion (75) Acute encephalopathy (76) Intractable pain (77) Intractable back pain (78) Low grade fever (79) Recurrent falls (80) Post-concussion headache (81) H/O: CVA (cerebrovascular accident) (82) Hypovolemia due to hemorrhage (83) Multiple injuries due to trauma (84) Incontinence in female (85) Bacteremia (86) Healthcare-associated pneumonia (87) Generalized weakness (88) Altered mental status (89) Pneumonia (90) Scalp hematoma (91) Fall (92) fall (93) chest wall contusion (94) 29700 (95) Anxiety (96) Depression (97) Failure to thrive (98) HTN (hypertension) (99) Wrist contusion (100) Recurrent falls (101) onchymycosis (102) finger nail avulsion (103) Abdominal distension (104) Atrial flutter (105) Abdominal pain (106) UTI (lower urinary tract infection) (107) New onset atrial flutter (108) CAD (coronary artery disease) (109) Dementia (110) Hyponatremia (111) Constipation (112) Accelerated hypertension (113) Atrial fibrillation (114) Hypertension (115) 3944 (116) 3945 (117) [address]249 (118) Elevated cholesterol with high triglycerides (119) Acute CHF (120) Atrial fibrillation with RVR (121) Pulmonary edema (122) Seizure disorder (123) CHF exacerbation (124) Depression (125) H/O ETOH abuse (126) SOB (shortness of breath) (127) Atrial flutter with rapid ventricular response (128) Diastolic CHF, acute on chronic (129) Acute diastolic CHF (congestive heart failure) (130) Pulmonary edema (131) Atrial flutter with controlled response (132) UTI (lower urinary tract infection) (133) Hyponatremia (134) Hypochloremia Review of Systems Psychiatric: Reports: prior hx, anxiety, depressed feelings, emotional problems Physical Exam General Appearance: WD/WN, no apparent distress, alert Neurologic: alert, oriented x 3, responsive, depressed affect Last 24 Hour Vital Signs Date Time Temp Pulse Resp B/P (MAP) Pulse Ox O2 Delivery O2 Flow Rate FiO2 10/17/17 12:36 120/58 10/17/17 12:00 98.3 65 21 120/58 97 Room Air 98.3 10/17/17 09:06 147/59 10/17/17 08:00 97.5 67 20 147/59 95 Room Air 97.5 10/17/17 06:51 68 20 Room Air 10/17/17 06:02 127/95 10/17/17 04:00 98.2 60 21 127/95 90 98.2 10/17/17 00:00 98.0 92 16 154/96 93 Room Air 98.0 10/16/17 23:57 154/96 10/16/17 20:00 98.3 64 18 142/61 94 98.3 10/16/17 19:01 97.8 84 20 120/76 98 Room Air 97.8 10/16/17 18:46 97.8 84 20 120/76 98 Room Air 97.8 10/16/17 15:32 95.0 61 20 119/64 95 Room Air 95.0 10/16/17 15:30 98.0 80 20 124/76 99 Room Air 98.0 Intake and Output 10/16/17 10/17/17 19:00 07:00 Intake Total 55 ml Output Total 0 ml Balance 0 ml 55 ml Intake IV Total 55 ml Output Urine Total 0 ml # Voids 2 # Bowel Movements 1 Laboratory Tests Test 10/16/17 16:39 10/16/17 17:50 10/17/17 07:30 White Blood Count 7.8 K/UL (4.8-10.8) 7.8 K/UL (4.8-10.8) Red Blood Count 4.22 M/UL (4.20-5.40) 4.32 M/UL (4.20-5.40) Hemoglobin 12.8 G/DL (12.0-16.0) 13.1 G/DL (12.0-16.0) Hematocrit 37.8 % (37.0-47.0) 39.1 % (37.0-47.0) Mean Corpuscular Volume 90 FL (80-99) 90 FL (80-99) Mean Corpuscular Hemoglobin 30.4 PG (27.0-31.0) 30.2 PG (27.0-31.0) Mean Corpuscular Hemoglobin Concent 33.9 G/DL (32.0-36.0) 33.4 G/DL (32.0-36.0) Red Cell Distribution Width 14.3 % (11.6-14.8) 14.2 % (11.6-14.8) Platelet Count 128 K/UL (150-450) L 121 K/UL (150-450) L Mean Platelet Volume 7.7 FL (6.5-10.1) 8.4 FL (6.5-10.1) Neutrophils (%) (Auto) 64.7 % (45.0-75.0) 69.1 % (45.0-75.0) Lymphocytes (%) (Auto) 19.7 % (20.0-45.0) L 16.2 % (20.0-45.0) L Monocytes (%) (Auto) 7.9 % (1.0-10.0) 8.2 % (1.0-10.0) Eosinophils (%) (Auto) 6.7 % (0.0-3.0) H 5.7 % (0.0-3.0) H Basophils (%) (Auto) 1.1 % (0.0-2.0) 0.9 % (0.0-2.0) Sodium Level 142 MMOL/L (136-145) 142 MMOL/L (136-145) Potassium Level 3.2 MMOL/L (3.5-5.1) L 3.6 MMOL/L (3.5-5.1) Chloride Level 105 MMOL/L (98-107) 105 MMOL/L (98-107) Carbon Dioxide Level 29 MMOL/L (21-32) 33 MMOL/L (21-32) H Anion Gap 8 mmol/L (5-15) 4 mmol/L (5-15) L Blood Urea Nitrogen 11 mg/dL (7-18) 9 mg/dL (7-18) Creatinine 0.8 MG/DL (0.55-1.30) 0.8 MG/DL (0.55-1.30) Estimat Glomerular Filtration Rate mL/min (>60) mL/min (>60) Glucose Level 109 MG/DL (74-106) H 78 MG/DL (74-106) Lactic Acid Level 1.30 mmol/L (0.66-2.22) Calcium Level 7.7 MG/DL (8.5-10.1) L 8.2 MG/DL (8.5-10.1) L Total Bilirubin 0.3 MG/DL (0.2-1.0) Aspartate Amino Transf (AST/SGOT) 13 U/L (15-37) L Alanine Aminotransferase (ALT/SGPT) < 6 U/L (12-78) L Alkaline Phosphatase 62 U/L (46-116) Pro-B-Type Natriuretic Peptide 1336 pg/mL (0-125) H Total Protein 5.7 G/DL (6.4-8.2) L Albumin 2.4 G/DL (3.4-5.0) L 2.5 G/DL (3.4-5.0) L Globulin 3.3 g/dL Albumin/Globulin Ratio 0.7 (1.0-2.7) L Urine Color Pale yellow Urine Appearance Cloudy Urine pH 7 (4.5-8.0) Urine Specific [place] 1.005 (1.005-1.035) Urine Protein 1+ (NEGATIVE) H Urine Glucose (UA) Negative (NEGATIVE) Urine Ketones Negative (NEGATIVE) Urine Occult Blood 2+ (NEGATIVE) H Urine Nitrite Positive (NEGATIVE) H Urine Bilirubin Negative (NEGATIVE) Urine Urobilinogen 1 MG/DL (0.0-1.0) H Urine Leukocyte Esterase 3+ (NEGATIVE) H Urine RBC 2-4 /HPF (0 - 2) H Urine WBC Tntc /HPF (0 - 2) H Urine Squamous Epithelial Cells None /LPF (NONE/OCC) Urine Bacteria Moderate /HPF (NONE) H Phosphorus Level 4.2 MG/DL (2.5-4.9) Microbiology Date/Time Source Procedure Growth Status 10/16/17 17:50 Urine,Clean Catch Urine Culture - Preliminary Gram Negative Bacillus 1 Resulted Height (Feet): 5 Height (Inches): 3.00 Weight (Pounds): 160 Medications Current Medications Medications (Trade) Dose Ordered Sig/Ibrahima Route PRN Reason Start Time Stop Time Status Last Admin Dose Admin Acetaminophen (Tylenol) 650 mg Q4H PRN ORAL fever 10/16/17 20:00 11/15/17 19:59 Al Hydroxide/Mg Hydroxide (Mylanta II) 30 ml Q6H PRN ORAL dyspepsia 10/16/17 20:00 11/15/17 19:59 Albuterol/ Ipratropium (Albuterol/ Ipratropium) 3 ml EVERY 4 HOURS PRN HHN Shortness of Breath 10/16/17 20:00 10/21/17 19:59 Allopurinol (Zyloprim) 100 mg DAILY ORAL 10/17/17 09:00 11/16/17 08:59 10/17/17 09:05 Bupropion HCl (Wellbutrin) 100 mg EVERY 12 HOURS ORAL 10/16/17 21:00 11/15/17 20:59 10/17/17 09:06 Divalproex Sodium (Depakote) 250 mg Q12HR ORAL 10/16/17 21:00 11/15/17 20:59 10/17/17 09:05 Hydralazine HCl (Apresoline) 25 mg Q6HR ORAL 10/17/17 00:00 11/16/17 00:00 10/17/17 12:36 Levofloxacin 100 ml @ 100 mls/hr Q24H IVPB 10/17/17 16:00 10/24/17 15:59 Lisinopril (Zestril) 5 mg DAILY ORAL 10/17/17 09:00 11/16/17 08:59 10/17/17 09:06 Nitroglycerin (Ntg) 0.4 mg q5 mins PRN SL Prn Chest Pain 10/16/17 20:00 11/15/17 19:59 Ondansetron HCl (Zofran) 4 mg Q6H PRN IVP Nausea & Vomiting 10/16/17 20:00 11/15/17 19:59 Polyethylene Glycol (Miralax) 17 gm DAILYPRN PRN ORAL Constipation 10/16/17 20:00 11/15/17 19:59 Promethazine HCl/ Codeine (Phenergan with Codeine) 5 ml Q4H PRN ORAL For Cough 10/16/17 20:00 11/15/17 19:59 Rivaroxaban (Xarelto) 10 mg DAILY ORAL 10/17/17 09:00 11/16/17 08:59 10/17/17 09:04 Sodium Chloride 1,000 ml @ 50 mls/hr Q20H IV 10/17/17 13:30 11/16/17 13:29 10/17/17 13:25 Temazepam (Restoril) 15 mg HSPRN PRN ORAL Insomnia 10/16/17 20:00 10/23/17 19:59 10/16/17 23:59 Assessment/Plan Status: stable Assessment/Plan Depression ?bipolar? anxiety -dc welbutrin -start lexapro -cont Luiz Lakhani M.D. October 17, 2017 14:36
--- NOTE | 2017-10-17 15:15 | History and Physical ---
History of Present Illness General Date patient seen: October 17, 2017 Reason for Hospitalization: Altered Mental Status Present Illness HPI 76-year-old female with extensive PMHx of depression, ETOH abuse, wheelchair bound, intermediate resident presented to ED for evaluation of erratic behavior . Upon arrival patient states she feel weak and nauseous, persistent cough of productive with yellowish phlegm. Afebrile. No other aggravating relieving factors. Denies any other associated symptoms. Pt is admitted for further evaluation. Allergies: Coded Allergies: NO KNOWN DRUG ALLERGIES (Unverified Allergy, Unknown, 07/11/15) Medication History Scheduled Al Hydroxide/mg Hydroxide (Mag-Al Plus Suspension), 30 ML PO prn Q6hr, (Reported ) Allopurinol* (Allopurinol*), 100 MG ORAL DAILY Atorvastatin Calcium* (Lipitor*), 10 MG ORAL BEDTIME Bisacodyl* (Dulcolax*), 10 MG ORAL PRN daily, (Reported) Bupropion HCl (Wellbutrin), 100 MG ORAL EVERY 12 HOURS, (Reported) Divalproex Sodium* (Depakote*), 250 MG PO Q12HR, (Reported) Docusate Sodium* (Docusate Sodium*), 250 MG ORAL DAILY, (Reported) Furosemide* (Lasix*), 40 MG ORAL DAILY, (Reported) Hydralazine HCl (Hydralazine HCl), 25 MG PO Q6HR, (Reported) Lisinopril (Lisinopril*), 5 MG ORAL DAILY, (Reported) Metoprolol Tartrate (Metoprolol Tartrate), 25 MG ORAL Q12HR Mirtazapine* (Mirtazapine*), 15 MG ORAL BEDTIME, (Reported) Multivitamin With Minerals (Multivitamins With Minerals*), 1 TAB ORAL DAILY, ( Reported) Nitrofurantoin Monohyd/M-Cryst* (Macrobid 100 Mg*), 100 MG ORAL EVERY 12 HOURS, (Reported) Nitroglycerin (Nitroglycerin Patch), 1 EACH TD Q6HR, (Reported) [place]-3 Fatty Acids/Fish Oil* (Fish Oil 1,000 Mg Softgel*), 1 CAP ORAL DAILY, ( Reported) Pantoprazole* (Pantoprazole*), 40 MG ORAL DAILY, (Reported) Pseudoephedrine Hcl (Sudogest), 30 MG PO BID, (Reported) Ranitidine Hcl (Ranitidine Hcl), 150 MG ORAL BEDTIME, (Reported) Risperidone* (Risperdal*), 0.25 MG ORAL BID, (Reported) Rivaroxaban (Xarelto*), 10 MG ORAL DAILY, (Reported) Solifenacin Succinate (Vesicare*), 10 MG ORAL DAILY, (Reported) Trimethoprim/Sulfamethoxazole 160/800* (Bactrim Ds Tablet*), 1 TAB ORAL TWICE A DAY, (Reported) Vancomycin/0.9 % Sod Chloride (Vancomycin-0.9% NaCl 1 G/250), 1 GM IV Q12HR, ( Reported) Scheduled PRN Acetaminophen (Acetaminophen), 650 MG ORAL Q4HR PRN for Mild Pain/Temp > 100.5, (Reported) Bisacodyl (Bisacodyl), 10 MG RC for Constipation, (Reported) Hydrocodone Bit/Acetaminophen 5-325* ([place] 5-325 Tablet*), 1 TAB ORAL Q6HR PRN for For Pain, (Reported) Polyethylene Glycol 3350* (Miralax*), 17 GM ORAL PRN at bedtime PRN for Constipation, (Reported) Promethazine/Phenyleph/Codeine (Promethazine Vc-Codeine Syrup), 10 ML ORAL Q4H PRN for For Cough, (Reported) Tramadol Hcl* (Ultram*), 50 MG ORAL Q12HR PRN for For Pain, (Reported) Zolpidem Tartrate* (Ambien*), 5 MG ORAL BEDTIME PRN for Insomnia, (Reported) Miscellaneous Medications Dextran 70/Hypromellose (Artificial Tears Eye Drops*), 1 DROP BOTH EYES, ( Reported) Patient History Healthcare decision maker Resuscitation status Full Code Advanced Directive on File Past Medical/Surgical History Past Medical/Surgical History: (1) COPD (chronic obstructive pulmonary disease) (2) Bipolar depression (3) H/O ETOH abuse (4) Depression (5) Seizure disorder (6) Hypertension (7) Atrial fibrillation (8) Dementia Review of Systems All Other Systems: negative except mentioned in HPI Physical Exam General Appearance: WD/WN Lines, tubes and drains: peripheral HEENT: normocephalic, atraumatic Neck: non-tender, normal alignment Respiratory/Chest: chest wall non-tender, lungs clear Breasts: no masses Cardiovascular/Chest: normal peripheral pulses Abdomen: normal bowel sounds, non tender Genitourinary/Rectal: normal genital exam Extremities: normal range of motion, non-tender Skin Exam: normal pigmentation Last 24 Hour Vital Signs Date Time Temp Pulse Resp B/P (MAP) Pulse Ox O2 Delivery O2 Flow Rate FiO2 10/17/17 12:36 120/58 10/17/17 12:00 98.3 65 21 120/58 97 Room Air 98.3 10/17/17 09:06 147/59 10/17/17 08:00 97.5 67 20 147/59 95 Room Air 97.5 10/17/17 06:51 68 20 Room Air 10/17/17 06:02 127/95 10/17/17 04:00 98.2 60 21 127/95 90 98.2 10/17/17 00:00 98.0 92 16 154/96 93 Room Air 98.0 10/16/17 23:57 154/96 10/16/17 20:00 98.3 64 18 142/61 94 98.3 10/16/17 19:01 97.8 84 20 120/76 98 Room Air 97.8 10/16/17 18:46 97.8 84 20 120/76 98 Room Air 97.8 10/16/17 15:32 95.0 61 20 119/64 95 Room Air 95.0 10/16/17 15:30 98.0 80 20 124/76 99 Room Air 98.0 Intake and Output 10/16/17 10/17/17 19:00 07:00 Intake Total 55 ml Output Total 0 ml Balance 0 ml 55 ml Intake IV Total 55 ml Output Urine Total 0 ml # Voids 2 # Bowel Movements 1 Laboratory Tests Test 10/16/17 16:39 10/16/17 17:50 10/17/17 07:30 White Blood Count 7.8 K/UL (4.8-10.8) 7.8 K/UL (4.8-10.8) Red Blood Count 4.22 M/UL (4.20-5.40) 4.32 M/UL (4.20-5.40) Hemoglobin 12.8 G/DL (12.0-16.0) 13.1 G/DL (12.0-16.0) Hematocrit 37.8 % (37.0-47.0) 39.1 % (37.0-47.0) Mean Corpuscular Volume 90 FL (80-99) 90 FL (80-99) Mean Corpuscular Hemoglobin 30.4 PG (27.0-31.0) 30.2 PG (27.0-31.0) Mean Corpuscular Hemoglobin Concent 33.9 G/DL (32.0-36.0) 33.4 G/DL (32.0-36.0) Red Cell Distribution Width 14.3 % (11.6-14.8) 14.2 % (11.6-14.8) Platelet Count 128 K/UL (150-450) L 121 K/UL (150-450) L Mean Platelet Volume 7.7 FL (6.5-10.1) 8.4 FL (6.5-10.1) Neutrophils (%) (Auto) 64.7 % (45.0-75.0) 69.1 % (45.0-75.0) Lymphocytes (%) (Auto) 19.7 % (20.0-45.0) L 16.2 % (20.0-45.0) L Monocytes (%) (Auto) 7.9 % (1.0-10.0) 8.2 % (1.0-10.0) Eosinophils (%) (Auto) 6.7 % (0.0-3.0) H 5.7 % (0.0-3.0) H Basophils (%) (Auto) 1.1 % (0.0-2.0) 0.9 % (0.0-2.0) Sodium Level 142 MMOL/L (136-145) 142 MMOL/L (136-145) Potassium Level 3.2 MMOL/L (3.5-5.1) L 3.6 MMOL/L (3.5-5.1) Chloride Level 105 MMOL/L (98-107) 105 MMOL/L (98-107) Carbon Dioxide Level 29 MMOL/L (21-32) 33 MMOL/L (21-32) H Anion Gap 8 mmol/L (5-15) 4 mmol/L (5-15) L Blood Urea Nitrogen 11 mg/dL (7-18) 9 mg/dL (7-18) Creatinine 0.8 MG/DL (0.55-1.30) 0.8 MG/DL (0.55-1.30) Estimat Glomerular Filtration Rate mL/min (>60) mL/min (>60) Glucose Level 109 MG/DL (74-106) H 78 MG/DL (74-106) Lactic Acid Level 1.30 mmol/L (0.66-2.22) Calcium Level 7.7 MG/DL (8.5-10.1) L 8.2 MG/DL (8.5-10.1) L Total Bilirubin 0.3 MG/DL (0.2-1.0) Aspartate Amino Transf (AST/SGOT) 13 U/L (15-37) L Alanine Aminotransferase (ALT/SGPT) < 6 U/L (12-78) L Alkaline Phosphatase 62 U/L (46-116) Pro-B-Type Natriuretic Peptide 1336 pg/mL (0-125) H Total Protein 5.7 G/DL (6.4-8.2) L Albumin 2.4 G/DL (3.4-5.0) L 2.5 G/DL (3.4-5.0) L Globulin 3.3 g/dL Albumin/Globulin Ratio 0.7 (1.0-2.7) L Urine Color Pale yellow Urine Appearance Cloudy Urine pH 7 (4.5-8.0) Urine Specific [place] 1.005 (1.005-1.035) Urine Protein 1+ (NEGATIVE) H Urine Glucose (UA) Negative (NEGATIVE) Urine Ketones Negative (NEGATIVE) Urine Occult Blood 2+ (NEGATIVE) H Urine Nitrite Positive (NEGATIVE) H Urine Bilirubin Negative (NEGATIVE) Urine Urobilinogen 1 MG/DL (0.0-1.0) H Urine Leukocyte Esterase 3+ (NEGATIVE) H Urine RBC 2-4 /HPF (0 - 2) H Urine WBC Tntc /HPF (0 - 2) H Urine Squamous Epithelial Cells None /LPF (NONE/OCC) Urine Bacteria Moderate /HPF (NONE) H Phosphorus Level 4.2 MG/DL (2.5-4.9) Microbiology Date/Time Source Procedure Growth Status 10/16/17 17:50 Urine,Clean Catch Urine Culture - Preliminary Gram Negative Bacillus 1 Resulted Height (Feet): 5 Height (Inches): 3.00 Weight (Pounds): 160 Medications Current Medications Medications (Trade) Dose Ordered Sig/Ibrahima Route PRN Reason Start Time Stop Time Status Last Admin Dose Admin Acetaminophen (Tylenol) 650 mg Q4H PRN ORAL fever 10/16/17 20:00 11/15/17 19:59 Al Hydroxide/Mg Hydroxide (Mylanta II) 30 ml Q6H PRN ORAL dyspepsia 10/16/17 20:00 11/15/17 19:59 Albuterol/ Ipratropium (Albuterol/ Ipratropium) 3 ml EVERY 4 HOURS PRN HHN Shortness of Breath 10/16/17 20:00 10/21/17 19:59 Allopurinol (Zyloprim) 100 mg DAILY ORAL 10/17/17 09:00 11/16/17 08:59 10/17/17 09:05 Divalproex Sodium (Depakote) 250 mg Q12HR ORAL 10/16/17 21:00 11/15/17 20:59 10/17/17 09:05 Escitalopram Oxalate (Lexapro) 10 mg DAILY ORAL 10/17/17 16:00 11/16/17 15:59 Hydralazine HCl (Apresoline) 25 mg Q6HR ORAL 10/17/17 00:00 11/16/17 00:00 10/17/17 12:36 Levofloxacin 100 ml @ 100 mls/hr Q24H IVPB 10/17/17 16:00 10/24/17 15:59 Lisinopril (Zestril) 5 mg DAILY ORAL 10/17/17 09:00 11/16/17 08:59 10/17/17 09:06 Nitroglycerin (Ntg) 0.4 mg q5 mins PRN SL Prn Chest Pain 10/16/17 20:00 11/15/17 19:59 Ondansetron HCl (Zofran) 4 mg Q6H PRN IVP Nausea & Vomiting 10/16/17 20:00 11/15/17 19:59 Polyethylene Glycol (Miralax) 17 gm DAILYPRN PRN ORAL Constipation 10/16/17 20:00 11/15/17 19:59 Promethazine HCl/ Codeine (Phenergan with Codeine) 5 ml Q4H PRN ORAL For Cough 10/16/17 20:00 11/15/17 19:59 Rivaroxaban (Xarelto) 10 mg DAILY ORAL 10/17/17 09:00 11/16/17 08:59 10/17/17 09:04 Sodium Chloride 1,000 ml @ 50 mls/hr Q20H IV 10/17/17 13:30 11/16/17 13:29 10/17/17 13:25 Temazepam (Restoril) 15 mg HSPRN PRN ORAL Insomnia 10/16/17 20:00 10/23/17 19:59 10/16/17 23:59 Assessment/Plan Problem List: (1) Encephalopathy acute ICD Codes: G93.40 - Encephalopathy, unspecified SNOMED: 5411447 (2) UTI (lower urinary tract infection) ICD Codes: N39.0 - UTI (lower urinary tract infection) SNOMED: 7795466 (3) H/O ETOH abuse ICD Codes: Z87.898 - History of alcohol abuse SNOMED: 156364777 (4) Depression ICD Codes: F32.9 - Depression SNOMED: 43493175 (5) Seizure disorder ICD Codes: G40.909 - Seizure disorder SNOMED: 116466022 (6) HTN (hypertension) ICD Codes: I10 - Hypertension SNOMED: 67433074 (7) Generalized weakness ICD Codes: R53.1 - Weakness SNOMED: 21776987 (8) COPD (chronic obstructive pulmonary disease) ICD Codes: J44.9 - Chronic obstructive pulmonary disease, unspecified SNOMED: 34763751 (9) UTI (lower urinary tract infection) ICD Codes: N39.0 - UTI (lower urinary tract infection) SNOMED: 1508524 Assessment/Plan langley cultures iv abx ID evaluation psych evaluation continue antidepressants monitor bp swallow study pt/ot Mendel Sierra MD October 17, 2017 15:15
[2017-10-17 16:00] VITALS: BP 107/55
--- NOTE | 2017-10-17 19:01 | Consultation ---
DATE OF CONSULTATION: 10/17/2017 NOTE: "POOR AUDIO QUALITY" INFECTIOUS DISEASE CONSULTATION CONSULTING PHYSICIAN: Juan Moeller M.D. REFERRING PHYSICIAN: Mendel Sierra M.D. REASON FOR CONSULTATION: Evaluation of the patient for possible UTI and antibiotic management. HISTORY OF PRESENT ILLNESS: The patient is a 76-year-old female with multiple medical problems. She was admitted to this facility due to shortness of breath. Reportedly, the patient had productive cough with yellowish sputum, however, the patient complained of mostly short of breath rather than cough, the hospital. The patient's condition has improved today. Infectious Disease consultation has been requested for further evaluation of the patient and antibiotic management. PAST MEDICAL HISTORY: 1. History of coag-negative Staph bacteremia and mitral valve endocarditis recently (in July,). 2. Hypertension. 3. COPD. 4. History of atrial flutter. 5. CAD status post stent. 6. History of alcohol abuse. 7. History of bilateral hip replacement. 8. C. difficile. 9. Seizure disorder. ALLERGIES: No known drug allergies. SOCIAL HISTORY: No history of alcohol or drug abuse. FAMILY HISTORY: Currently, family history is not contributing. REVIEW OF SYSTEMS: HEENT: No change in vision or hearing recently. PULMONARY: As mentioned above. CARDIOVASCULAR: As mentioned above. GASTROINTESTINAL: No nausea, vomiting, or diarrhea. GENITOURINARY: No dysuria. PHYSICAL EXAMINATION: VITAL SIGNS: Temperature 97.5, pulse 86, respiratory rate 18, and blood pressure 120/58. HEENT: No pale conjunctivae. No icterus. NECK: Supple. CHEST: Clear to my exam. HEART: S1, S2. ABDOMEN: Soft, nontender. EXTREMITIES: No cyanosis at this time. NEUROLOGIC: Awake, alert. LABORATORY AND DIAGNOSTIC DATA: WBC count 7, hemoglobin 13, platelet 121,000. UA shows too numerous to count white blood cells. BUN 9, creatinine 0.8. ALT, AST, and alkaline phosphatase unremarkable. Urine culture is growing gram-negative rods more than 100,000 colonies. Chest x-ray, mild cardiomegaly, improved interstitial congestion. MEDICATIONS: The patient is on IV vancomycin and cefepime. The patient received one dose of Levaquin in the emergency room. ASSESSMENT: The patient is a 76-year-old female with multiple medical problems, who was admitted to this medical center for cough with sputum production. The patient has: 1. Bronchitis, ? pneumonia. 2. Positive urine culture growing more than 100,000 colonies of gram-negative rods, most likely asymptomatic bacteriuria. 3. Afebrile. 4. Normal white blood cells. 5. Rule out bacteremia. PLAN: 1. We will change antibiotics to Levaquin for a total of five days. 2. Monitor CBC. 3. Monitor BMP. 4. Monitor chest x-ray. 5. Monitor cultures (blood, urine, and sputum). 6. Based on the patient's clinical course and labs, we will do further recommendations. Thank you, Dr. Sierra, for allowing me to participate in the care of your patient. I will follow this patient with you during this hospitalization. Juan Moeller M.D. DR: Won JOB#: [id number] CC:
[2017-10-17 20:00] VITALS: BP 110/54
[2017-10-17] MEDS: Promethazine/Codeine 5ml UD ORAL PRN (21:19)
[2017-10-18] VITALS: BP 117/56
[2017-10-18] MEDS: HydrALAZINE 25mg tab ORAL SCH ×4 (00:17→17:27)
[2017-10-18 04:00] VITALS: BP 119/53
--- NOTE | 2017-10-18 07:47 | Pulmonology Progress Note ---
Assessment/Plan Assessment/Plan ASSESSMENT Acute encephalopathy ( likely due to infectious process) urinary tract infection?, probably asymptomatic bacteriuria COPD bronchitis possible pneumonia Hypertension Hypokalemia, resolved Atrial flutter Depression/anxiety Possible bipolar disorder History of CVA PLAN OF CARE Med Surg floor empiric antibiotics, follow-up with culture, urine cx +Proteus, no urinary complaints, likely asympt bacteriuria ID follows supplemental oxygen as needed to keep pulse oximetry above 92% pulmonary toilet with HHN and CPT antitussive as needed fup with CXR blood pressure management with hydralazine and ONEIL inhibitor, optimize further as needed antiemetic as needed anticoagulation with Xarelto resumed heart rate stable psychiatrist seen and evaluated, psychiatric medication regimen optimized monitor renal parameters lytes, correct lytes as needed, avoid nephrotoxic symptomatic treatment bowel regimen instituted case discussed and evaluated by supervising physician Subjective Allergies: Coded Allergies: NO KNOWN DRUG ALLERGIES (Unverified Allergy, Unknown, 07/11/15) Subjective denies chest pain, reports intermittent SOB and productive cough, with yellow phlegm' no wheezing, no cehst tightness no fevers no urinary frequency, no flank/suprapubic pain, no burning on urination Objective Last 24 Hour Vital Signs Date Time Temp Pulse Resp B/P (MAP) Pulse Ox O2 Delivery O2 Flow Rate FiO2 10/18/17 05:38 119/53 10/18/17 04:00 98.2 94 20 119/53 97 98.2 10/18/17 00:17 117/56 10/18/17 00:00 98.8 94 20 117/56 96 98.8 10/17/17 20:00 98.9 70 20 110/54 96 98.9 10/17/17 19:49 70 19 Room Air 10/17/17 17:55 128/60 10/17/17 16:00 97.6 70 19 107/55 99 Room Air 97.6 10/17/17 12:36 120/58 10/17/17 12:00 98.3 65 21 120/58 97 Room Air 98.3 10/17/17 09:06 147/59 10/17/17 08:00 97.5 67 20 147/59 95 Room Air 97.5 Intake and Output 10/17/17 10/18/17 19:00 07:00 Intake Total 830 ml 550 ml Balance 830 ml 550 ml Intake Oral 480 ml IV Total 350 ml 550 ml # Voids 6 2 General Appearance: no acute distress HEENT: normocephalic, atraumatic, anicteric, mucous membranes moist Respiratory/Chest: no respiratory distress, no accessory muscle use, decreased breath sounds Cardiovascular: normal rate Abdomen: normal bowel sounds, soft, non tender Extremities: other - trace edema BLE Neurologic/Psychiatric: abnormal gait - w/chair bound , alert, oriented x 3, responsive, normal mood/affect Musculoskeletal: atrophy - BLE Microbiology Date/Time Source Procedure Growth Status 10/16/17 17:50 Urine,Clean Catch Urine Culture - Final Proteus Mirabilis Complete Current Medications Medications (Trade) Dose Ordered Sig/Ibrahima Route PRN Reason Start Time Stop Time Status Last Admin Dose Admin Acetaminophen (Tylenol) 650 mg Q4H PRN ORAL fever 10/16/17 20:00 11/15/17 19:59 Al Hydroxide/Mg Hydroxide (Mylanta II) 30 ml Q6H PRN ORAL dyspepsia 10/16/17 20:00 11/15/17 19:59 Albuterol/ Ipratropium (Albuterol/ Ipratropium) 3 ml EVERY 4 HOURS PRN HHN Shortness of Breath 10/16/17 20:00 10/21/17 19:59 Allopurinol (Zyloprim) 100 mg DAILY ORAL 10/17/17 09:00 11/16/17 08:59 10/17/17 09:05 Divalproex Sodium (Depakote) 250 mg Q12HR ORAL 10/16/17 21:00 11/15/17 20:59 10/17/17 21:06 Escitalopram Oxalate (Lexapro) 10 mg DAILY ORAL 10/17/17 16:00 11/16/17 15:59 10/17/17 16:30 Hydralazine HCl (Apresoline) 25 mg Q6HR ORAL 10/17/17 00:00 11/16/17 00:00 10/18/17 05:38 Levofloxacin 100 ml @ 100 mls/hr Q24H IVPB 10/17/17 16:00 10/24/17 15:59 10/17/17 16:31 Lisinopril (Zestril) 5 mg DAILY ORAL 10/17/17 09:00 11/16/17 08:59 10/17/17 09:06 Nitroglycerin (Ntg) 0.4 mg q5 mins PRN SL Prn Chest Pain 10/16/17 20:00 11/15/17 19:59 Ondansetron HCl (Zofran) 4 mg Q6H PRN IVP Nausea & Vomiting 10/16/17 20:00 11/15/17 19:59 Polyethylene Glycol (Miralax) 17 gm DAILYPRN PRN ORAL Constipation 10/16/17 20:00 11/15/17 19:59 Promethazine HCl/ Codeine (Phenergan with Codeine) 5 ml Q4H PRN ORAL For Cough 10/16/17 20:00 11/15/17 19:59 10/17/17 21:19 Rivaroxaban (Xarelto) 10 mg DAILY ORAL 10/17/17 09:00 11/16/17 08:59 10/17/17 09:04 Sodium Chloride 1,000 ml @ 50 mls/hr Q20H IV 10/17/17 13:30 11/16/17 13:29 10/18/17 06:43 Temazepam (Restoril) 15 mg HSPRN PRN ORAL Insomnia 10/16/17 20:00 10/23/17 19:59 10/16/17 23:59 Jazzy Campuzano [employer] October 18, 2017 07:47
[2017-10-18 08:00] VITALS: BP 119/68
[2017-10-18] MEDS: Allopurinol 100mg Tab ORAL SCH (09:00)
[2017-10-18] MEDS: Xarelto 10mg tab ORAL SCH (09:00)
[2017-10-18] MEDS: Lisinopril 2.5mg tab ORAL SCH (09:01)
--- NOTE | 2017-10-18 11:24 | Consultation ---
Juan Moeller MD October 18, 2017 11:24
--- NOTE | 2017-10-18 11:28 | Infectious Diseases Prog Note ---
Assessment/Plan Assessment/Plan ASSESSMENT: The patient is a 76-year-old female with Bronchitis, ? pneumonia. Positive urine culture > 100K P.mirabilis ( asymptomatic bacteriuria ) febrile. normal white blood cells. Rule out bacteremia. History of coag-negative Staph bacteremia (in July,). MRSA colonization Hypertension. COPD. History of atrial flutter. CAD status post stent. History of alcohol abuse. History of bilateral hip replacement. Seizure disorder. Urine culture is growing gram-negative rods more than 100,000 colonies. Chest x-ray, mild cardiomegaly, improved interstitial congestion. PLAN: cont on Levaquin d# 2/ 5 Monitor CBC. Monitor BMP. Monitor chest x-ray. Monitor cultures (blood, urine, and sputum) Subjective Allergies: Coded Allergies: NO KNOWN DRUG ALLERGIES (Unverified Allergy, Unknown, 07/11/15) Subjective Afebrile Objective Vital Signs Last 24 Hour Vital Signs Date Time Temp Pulse Resp B/P (MAP) Pulse Ox O2 Delivery O2 Flow Rate FiO2 10/18/17 09:01 119/68 10/18/17 08:00 98.1 99 20 119/68 95 98.1 10/18/17 07:14 68 16 Room Air 10/18/17 05:38 119/53 10/18/17 04:00 98.2 94 20 119/53 97 98.2 10/18/17 00:17 117/56 10/18/17 00:00 98.8 94 20 117/56 96 98.8 10/17/17 20:00 98.9 70 20 110/54 96 98.9 10/17/17 19:49 70 19 Room Air 10/17/17 17:55 128/60 10/17/17 16:00 97.6 70 19 107/55 99 Room Air 97.6 10/17/17 12:36 120/58 10/17/17 12:00 98.3 65 21 120/58 97 Room Air 98.3 Height (Feet): 5 Height (Inches): 3.00 Weight (Pounds): 160 HEENT: atraumatic Respiratory/Chest: lungs clear Cardiovascular: regular rhythm Abdomen: soft, non tender Microbiology Date/Time Source Procedure Growth Status 10/16/17 16:39 Blood Blood Culture - Preliminary NO GROWTH AFTER 24 HOURS Resulted 10/16/17 16:15 Blood Blood Culture - Preliminary NO GROWTH AFTER 24 HOURS Resulted 10/16/17 17:49 Nasal Nares MRSA Culture - Final Staphylococcus Aureus - Mrsa Complete 10/16/17 17:50 Urine,Clean Catch Urine Culture - Final Proteus Mirabilis Complete Current Medications Medications (Trade) Dose Ordered Sig/Ibrahima Route PRN Reason Start Time Stop Time Status Last Admin Dose Admin Acetaminophen (Tylenol) 650 mg Q4H PRN ORAL fever 10/16/17 20:00 11/15/17 19:59 Al Hydroxide/Mg Hydroxide (Mylanta II) 30 ml Q6H PRN ORAL dyspepsia 10/16/17 20:00 11/15/17 19:59 Albuterol/ Ipratropium (Albuterol/ Ipratropium) 3 ml EVERY 4 HOURS PRN HHN Shortness of Breath 10/16/17 20:00 10/21/17 19:59 Allopurinol (Zyloprim) 100 mg DAILY ORAL 10/17/17 09:00 11/16/17 08:59 10/18/17 09:00 Divalproex Sodium (Depakote) 250 mg Q12HR ORAL 10/16/17 21:00 11/15/17 20:59 10/18/17 09:01 Escitalopram Oxalate (Lexapro) 10 mg DAILY ORAL 10/17/17 16:00 11/16/17 15:59 10/18/17 09:00 Hydralazine HCl (Apresoline) 25 mg Q6HR ORAL 10/17/17 00:00 11/16/17 00:00 10/18/17 05:38 Levofloxacin 100 ml @ 100 mls/hr Q24H IVPB 10/17/17 16:00 10/24/17 15:59 10/17/17 16:31 Lisinopril (Zestril) 5 mg DAILY ORAL 10/17/17 09:00 11/16/17 08:59 10/18/17 09:01 Nitroglycerin (Ntg) 0.4 mg q5 mins PRN SL Prn Chest Pain 10/16/17 20:00 11/15/17 19:59 Ondansetron HCl (Zofran) 4 mg Q6H PRN IVP Nausea & Vomiting 10/16/17 20:00 11/15/17 19:59 Polyethylene Glycol (Miralax) 17 gm DAILYPRN PRN ORAL Constipation 10/16/17 20:00 11/15/17 19:59 Promethazine HCl/ Codeine (Phenergan with Codeine) 5 ml Q4H PRN ORAL For Cough 10/16/17 20:00 11/15/17 19:59 10/17/17 21:19 Rivaroxaban (Xarelto) 10 mg DAILY ORAL 10/17/17 09:00 11/16/17 08:59 10/18/17 09:00 Sodium Chloride 1,000 ml @ 50 mls/hr Q20H IV 10/17/17 13:30 11/16/17 13:29 10/18/17 06:43 Temazepam (Restoril) 15 mg HSPRN PRN ORAL Insomnia 10/16/17 20:00 10/23/17 19:59 10/16/17 23:59 Juan Moeller MD October 18, 2017 11:28
[2017-10-18 12:00] VITALS: BP 116/54
[2017-10-18] MEDS ORDERED: 1/2 NS 1000ml IV ONE (15:20)
[2017-10-18] MEDS ORDERED: Tubing IV Secondary IV ONE (15:20)
[2017-10-18 16:00] VITALS: BP 108/56
[2017-10-18 20:13] VITALS: BP 119/61
--- NOTE | 2017-10-18 22:56 | General Progress Note ---
Assessment/Plan Status: stable Assessment/Plan mdd cognitive impairment lexapro 10mg qam provided ro Subjective Date patient seen: October 18, 2017 Neurologic/Psychiatric: Reports: anxiety, depressed, emotional problems Allergies: Coded Allergies: NO KNOWN DRUG ALLERGIES (Unverified Allergy, Unknown, 07/11/15) Objective Last 24 Hour Vital Signs Date Time Temp Pulse Resp B/P (MAP) Pulse Ox O2 Delivery O2 Flow Rate FiO2 10/18/17 20:13 99.7 126 20 119/61 90 99.7 10/18/17 19:59 95 20 Room Air 21 10/18/17 17:27 108/56 10/18/17 16:00 97.8 99 20 108/56 95 97.8 10/18/17 12:26 116/54 10/18/17 12:00 98.0 89 20 116/54 93 98.0 10/18/17 09:01 119/68 10/18/17 08:00 98.1 99 20 119/68 95 98.1 10/18/17 07:14 68 16 Room Air 10/18/17 05:38 119/53 10/18/17 04:00 98.2 94 20 119/53 97 98.2 10/18/17 00:17 117/56 10/18/17 00:00 98.8 94 20 117/56 96 98.8 Intake and Output 10/17/17 10/18/17 19:00 07:00 Intake Total 830 ml 550 ml Balance 830 ml 550 ml Intake Oral 480 ml IV Total 350 ml 550 ml # Voids 6 2 Height (Feet): 5 Height (Inches): 3.00 Weight (Pounds): 160 General Appearance: no apparent distress, alert Neurologic: oriented x 3, depressed affect Luiz Morrison M.D. October 18, 2017 22:56
[2017-10-19] MEDS: Promethazine/Codeine 5ml UD ORAL PRN (00:11)
[2017-10-19 00:38] VITALS: BP 123/56
[2017-10-19 04:35] VITALS: BP 131/75
[2017-10-19] MEDS: HydrALAZINE 25mg tab ORAL SCH ×4 (05:30→18:00)
[2017-10-19 08:00] VITALS: BP 118/71
[2017-10-19] MEDS: Xarelto 10mg tab ORAL SCH (09:00)
[2017-10-19] MEDS: Allopurinol 100mg Tab ORAL SCH (09:18)
[2017-10-19] MEDS: Lisinopril 2.5mg tab ORAL SCH (09:18)
--- NOTE | 2017-10-19 09:44 | Pulmonology Progress Note ---
Assessment/Plan Assessment/Plan ASSESSMENT Acute encephalopathy ( likely due to infectious process) urinary tract infection?, probably asymptomatic bacteriuria COPD exacerbation bronchitis possible pneumonia tachycardia Hypertension Hypokalemia, resolved Atrial flutter Depression/anxiety Possible bipolar disorder History of CVA Dysphagia PLAN OF CARE transfer to tele troponin now and CXR sputum cx O2 prn to keep sat above 92% HHN and CPT start steroids and taper fast a/tussive prn empiric antibiotics, sputum cx now urine cx +Proteus, no urinary complaints, likely asympt bacteriuria ID follows swallow eval with dysphagia diet as per ST blood pressure management with hydralazine and ONEIL inhibitor, optimize further as needed , Metoprolol IV on tele prn anticoagulation with Xarelto psychiatrist seen and evaluated, psychiatric medication regimen optimized monitor renal parameters lytes, correct lytes as needed, avoid nephrotoxic symptomatic treatment bowel regimen instituted case discussed and evaluated by supervising physician Subjective Allergies: Coded Allergies: NO KNOWN DRUG ALLERGIES (Unverified Allergy, Unknown, 07/11/15) Subjective denies chest pain, reports intermittent SOB and productive cough, with yellow phlegm' episode of tachycardia last night, ECG with ST, abnormal ,hx of A flutter, Objective Last 24 Hour Vital Signs Date Time Temp Pulse Resp B/P (MAP) Pulse Ox O2 Delivery O2 Flow Rate FiO2 10/19/17 09:18 118/77 10/19/17 08:13 96 20 99 Nasal Cannula 2.0 28 10/19/17 07:58 94 20 97 Nasal Cannula 2.0 28 10/19/17 07:11 92 20 Nasal Cannula 2.0 28 10/19/17 05:30 131/75 10/19/17 04:46 102 98 Nasal Cannula 2.0 10/19/17 04:35 97.6 134 20 131/75 97 97.6 10/19/17 00:38 99.2 98 19 123/56 91 99.2 10/19/17 00:00 113/56 10/18/17 20:13 99.7 126 20 119/61 90 99.7 10/18/17 19:59 95 20 Room Air 21 10/18/17 17:27 108/56 10/18/17 16:00 97.8 99 20 108/56 95 97.8 10/18/17 12:26 116/54 10/18/17 12:00 98.0 89 20 116/54 93 98.0 Intake and Output 10/18/17 10/19/17 19:00 07:00 Intake Total 860 ml 1400 ml Balance 860 ml 1400 ml Intake Oral 360 ml 800 ml IV Total 500 ml 600 ml # Voids 3 2 # Bowel Movements 1 Objective General Appearance: no acute distress HEENT: normocephalic, atraumatic, anicteric, mucous membranes moist Respiratory/Chest: no respiratory distress, no accessory muscle use, decreased breath sounds, few3 scattered exp wheezes Cardiovascular: normal rate Abdomen: normal bowel sounds, soft, non tender Extremities: trace edema BLE Neurologic/Psychiatric: w/chair bound , alert, oriented x 3, responsive, normal mood/affect Musculoskeletal: atrophy - BLE Microbiology Date/Time Source Procedure Growth Status 10/16/17 16:39 Blood Blood Culture - Preliminary NO GROWTH AFTER 48 HOURS Resulted 10/16/17 16:15 Blood Blood Culture - Preliminary NO GROWTH AFTER 48 HOURS Resulted 10/16/17 17:49 Nasal Nares MRSA Culture - Final Staphylococcus Aureus - Mrsa Complete 10/16/17 17:50 Urine,Clean Catch Urine Culture - Final Proteus Mirabilis Complete 10/16/17 17:49 Rectum VRE Culture - Final Enterococcus Faecalis - Vre Complete Current Medications Medications (Trade) Dose Ordered Sig/Ibrahima Route PRN Reason Start Time Stop Time Status Last Admin Dose Admin Acetaminophen (Tylenol) 650 mg Q4H PRN ORAL fever 10/16/17 20:00 11/15/17 19:59 Al Hydroxide/Mg Hydroxide (Mylanta II) 30 ml Q6H PRN ORAL dyspepsia 10/16/17 20:00 11/15/17 19:59 Albuterol/ Ipratropium (Albuterol/ Ipratropium) 3 ml EVERY 4 HOURS PRN HHN Shortness of Breath 10/16/17 20:00 10/21/17 19:59 10/19/17 07:55 Allopurinol (Zyloprim) 100 mg DAILY ORAL 10/17/17 09:00 11/16/17 08:59 10/19/17 09:18 Clotrimazole (Lotrimin) 1 applic THREE TIMES A DAY TOPIC 10/19/17 09:00 11/18/17 08:59 10/19/17 09:17 Divalproex Sodium (Depakote) 250 mg Q12HR ORAL 10/16/17 21:00 11/15/17 20:59 10/19/17 09:18 Escitalopram Oxalate (Lexapro) 10 mg DAILY ORAL 10/17/17 16:00 11/16/17 15:59 10/19/17 09:18 Hydralazine HCl (Apresoline) 25 mg Q6HR ORAL 10/17/17 00:00 11/16/17 00:00 10/19/17 05:30 Levofloxacin 100 ml @ 100 mls/hr Q24H IVPB 10/17/17 16:00 10/24/17 15:59 10/18/17 15:29 Lisinopril (Zestril) 5 mg DAILY ORAL 10/17/17 09:00 11/16/17 08:59 10/19/17 09:18 Nitroglycerin (Ntg) 0.4 mg q5 mins PRN SL Prn Chest Pain 10/16/17 20:00 11/15/17 19:59 Ondansetron HCl (Zofran) 4 mg Q6H PRN IVP Nausea & Vomiting 10/16/17 20:00 11/15/17 19:59 Polyethylene Glycol (Miralax) 17 gm DAILYPRN PRN ORAL Constipation 10/16/17 20:00 11/15/17 19:59 Promethazine HCl/ Codeine (Phenergan with Codeine) 5 ml Q4H PRN ORAL For Cough 10/16/17 20:00 11/15/17 19:59 10/19/17 00:11 Rivaroxaban (Xarelto) 10 mg DAILY ORAL 10/17/17 09:00 11/16/17 08:59 10/18/17 09:00 Sodium Chloride 1,000 ml @ 50 mls/hr Q20H IV 10/17/17 13:30 11/16/17 13:29 10/19/17 03:00 Temazepam (Restoril) 15 mg HSPRN PRN ORAL Insomnia 10/16/17 20:00 10/23/17 19:59 10/16/17 23:59 Jazzy Campuzano NP October 19, 2017 09:44
[2017-10-19] MEDS ORDERED: Albuterol/Ipratropium 3ml neb HHN PRN (09:45)
[2017-10-19 09:47] LABS: BASOPHILS % (AUTO) 0.8 % (0.0-2.0); EOSINOPHILS % (AUTO) 4.7 % (0.0-3.0); HEMATOCRIT 41.8 % (37.0-47.0); HEMOGLOBIN 13.7 G/DL (12.0-16.0); LYMPHOCYTES % (AUTO) 16.1 % (20.0-45.0); MEAN CORPUSCULAR VOLUME 92 FL (80-99); MONOCYTES % (AUTO) 7.3 % (1.0-10.0); NEUTROPHILS % (AUTO) 71.1 % (45.0-75.0); PLATELET COUNT 128 K/UL (150-450); RED BLOOD COUNT 4.53 M/UL (4.20-5.40); RED CELL DISTRIBUTION WIDTH 14.9 % (11.6-14.8); WHITE BLOOD COUNT 7.3 K/UL (4.8-10.8)
[2017-10-19] MEDS ORDERED: 1/2 NS 1000ml IV ONE (09:55)
[2017-10-19 10:04] LABS: ANION GAP 5 mmol/L (5-15); BLOOD UREA NITROGEN 7 mg/dL (7-18); CALCIUM 8.6 MG/DL (8.5-10.1); CARBON DIOXIDE 29 MMOL/L (21-32); CHLORIDE 104 MMOL/L (98-107); CREATININE 0.8 MG/DL (0.55-1.30); POTASSIUM 4.2 MMOL/L (3.5-5.1); SODIUM 138 MMOL/L (136-145)
[2017-10-19] MEDS ORDERED: Nitroglycerin Subl 0.4mg tab SL PRN (11:30)
[2017-10-19] MEDS ORDERED: Miralax 17gm pkt ORAL PRN (12:00)
[2017-10-19] MEDS ORDERED: Mylanta II UD 30ml ORAL PRN (12:00)
[2017-10-19 12:13] VITALS: BP 135/54
[2017-10-19] MEDS: Albuterol/Ipratropium 3ml neb HHN PRN ×2 (12:49→19:49)
[2017-10-19] MEDS: Solu-MEDROL 40mg Inj IVP SCH ×2 (13:29→21:11)
[2017-10-19] MEDS ORDERED: Solu-MEDROL 40mg Inj IVP SCH (14:00)
[2017-10-19 15:39] VITALS: BP 110/50
--- NOTE | 2017-10-19 15:51 | Diagnostic Imaging Report ---
EXAM: XR Chest, 1 View CLINICAL HISTORY: Shortness of breath TECHNIQUE: Frontal view of the chest. COMPARISON: Chest x-ray dated 10/16/17. FINDINGS: Lungs: Unchanged appearance of mildly increased interstitial markings. Pleural space: Blunting of the left costophrenic angle, unchanged compared to the prior exam, which may suggest a mild left pleural effusion versus pleural thickening. No pneumothorax. Heart: Unchanged density in the retrocardiac region. Mediastinum: Unremarkable. Bones/joints: Extensive degenerative changes in bilateral shoulder joints. Vasculature: Atherosclerotic calcifications in the aortic arch and descending thoracic aorta. Tubes, lines and devices: EKG leads overlie the thorax. Cardiac monitoring device noted in the region of the left lung base/left upper abdominal quadrant. IMPRESSION: 1. Blunting of the left costophrenic angle, unchanged compared to the prior exam, which may suggest a mild left pleural effusion versus pleural thickening. 2. Unchanged appearance of mildly increased interstitial markings. This may be related to chronic senescent changes, however differential diagnosis may also include mild pulmonary vascular congestion or mild interstitial pneumonitis.
--- NOTE | 2017-10-19 18:40 | General Progress Note ---
Subjective Date patient seen: October 19, 2017 Allergies: Coded Allergies: NO KNOWN DRUG ALLERGIES (Unverified Allergy, Unknown, 07/11/15) Objective Last 24 Hour Vital Signs Date Time Temp Pulse Resp B/P (MAP) Pulse Ox O2 Delivery O2 Flow Rate FiO2 10/19/17 18:00 110/50 10/19/17 15:39 97.7 98 20 110/50 96 Nasal Cannula 2.0 97.7 20 10/19/17 12:59 98 20 97 Nasal Cannula 2.0 28 10/19/17 12:49 100 20 96 Nasal Cannula 2.0 28 10/19/17 12:24 135/54 10/19/17 12:13 99.3 98 20 135/54 97 Nasal Cannula 2.0 99.3 20 10/19/17 12:00 105 10/19/17 09:18 118/77 10/19/17 08:13 96 20 99 Nasal Cannula 2.0 28 10/19/17 08:00 98.9 98 21 118/71 99 Nasal Cannula 2.0 98.9 10/19/17 07:58 94 20 97 Nasal Cannula 2.0 10/19/17 07:11 92 20 Nasal Cannula 2.0 28 10/19/17 05:30 131/75 10/19/17 04:46 102 98 Nasal Cannula 2.0 10/19/17 04:35 97.6 134 20 131/75 97 97.6 10/19/17 00:38 99.2 98 19 123/56 91 99.2 10/19/17 00:00 113/56 10/18/17 20:13 99.7 126 20 119/61 90 99.7 10/18/17 19:59 95 20 Room Air 21 Intake and Output 10/18/17 10/19/17 19:00 07:00 Intake Total 860 ml 1400 ml Balance 860 ml 1400 ml Intake Oral 360 ml 800 ml IV Total 500 ml 600 ml # Voids 3 2 # Bowel Movements 1 Laboratory Tests 10/19/17 09:40: White Blood Count 7.3, Red Blood Count 4.53, Hemoglobin 13.7, Hematocrit 41.8, Mean Corpuscular Volume 92, Mean Corpuscular Hemoglobin 30.3, Mean Corpuscular Hemoglobin Concent 32.9, Red Cell Distribution Width 14.9H, Platelet Count 128L , Mean Platelet Volume 8.0, Neutrophils (%) (Auto) 71.1, Lymphocytes (%) (Auto) 16.1L, Monocytes (%) (Auto) 7.3, Eosinophils (%) (Auto) 4.7H, Basophils (%) ( Auto) 0.8, Sodium Level 138, Potassium Level 4.2, Chloride Level 104, Carbon Dioxide Level 29, Anion Gap 5, Blood Urea Nitrogen 7, Creatinine 0.8, Estimat Glomerular Filtration Rate , Glucose Level 104, Calcium Level 8.6, Troponin I 0.027 Height (Feet): 5 Height (Inches): 3.00 Weight (Pounds): 160 Jv Rodriguez MD October 19, 2017 18:39
[2017-10-19 20:00] VITALS: BP 104/53
[2017-10-20] VITALS: BP 99/54
[2017-10-20 04:00] VITALS: BP 121/70
[2017-10-20] MEDS: Solu-MEDROL 40mg Inj IVP SCH (05:28)
[2017-10-20] MEDS: HydrALAZINE 25mg tab ORAL SCH ×4 (05:28→18:06)
[2017-10-20] MEDS ORDERED: Metoprolol 5mg/5ml Inj IVP SCH (06:00)
[2017-10-20 08:00] VITALS: BP 127/64
[2017-10-20 08:41] LABS: BASOPHILS % (AUTO) 0.3 % (0.0-2.0); EOSINOPHILS % (AUTO) 0.1 % (0.0-3.0); HEMATOCRIT 43.8 % (37.0-47.0); HEMOGLOBIN 14.5 G/DL (12.0-16.0); LYMPHOCYTES % (AUTO) 14.8 % (20.0-45.0); MEAN CORPUSCULAR VOLUME 92 FL (80-99); MONOCYTES % (AUTO) 3.5 % (1.0-10.0); NEUTROPHILS % (AUTO) 81.3 % (45.0-75.0); PLATELET COUNT 133 K/UL (150-450); RED BLOOD COUNT 4.75 M/UL (4.20-5.40); RED CELL DISTRIBUTION WIDTH 14.9 % (11.6-14.8)
[2017-10-20 08:48] LABS: ANION GAP 11 mmol/L (5-15); BLOOD UREA NITROGEN 13 mg/dL (7-18); CALCIUM 8.8 MG/DL (8.5-10.1); CARBON DIOXIDE 26 MMOL/L (21-32); CHLORIDE 100 MMOL/L (98-107); POTASSIUM 4.7 MMOL/L (3.5-5.1); SODIUM 136 MMOL/L (136-145)
[2017-10-20] MEDS: Metoprolol 25mg tab ORAL SCH ×2 (09:06→18:05)
[2017-10-20] MEDS: Xarelto 10mg tab ORAL SCH (09:06)
[2017-10-20] MEDS: Lisinopril 2.5mg tab ORAL SCH (09:07)
[2017-10-20] MEDS: Allopurinol 100mg Tab ORAL SCH (09:07)
--- NOTE | 2017-10-20 11:27 | Infectious Diseases Prog Note ---
Assessment/Plan Assessment/Plan ASSESSMENT: The patient is a 76-year-old female with Bronchitis, ? pneumonia. Chest x-ray: Blunting of the left costophrenic angle, unchanged compared to the prior exam, which may suggest a mild left pleural effusion versus pleural thickening. Unchanged appearance of mildly increased interstitial markings. This may be related to chronic senescent changes, however differential diagnosis may also include mild pulmonary vascular congestion or mild interstitial pneumonitis. Positive urine culture > 100K P.mirabilis ( asymptomatic bacteriuria ) Afebrile. normal white blood cells. Rule out bacteremia. -Bcx NTD History of coag-negative Staph bacteremia (in July,), s/p Rx 2 weeks -JIMY tickened MV, no vegetations MRSA colonization Hypertension. COPD. History of atrial flutter. CAD status post stent. History of alcohol abuse. History of bilateral hip replacement. Seizure disorder. PLAN: cont on Levaquin d# 4/ 5 Monitor CBC. Monitor BMP. Monitor chest x-ray. Monitor cultures (blood, sputum) Subjective Allergies: Coded Allergies: NO KNOWN DRUG ALLERGIES (Unverified Allergy, Unknown, 07/11/15) Subjective afebrile at 2L NC no leukocytosis Objective Vital Signs Last 24 Hour Vital Signs Date Time Temp Pulse Resp B/P (MAP) Pulse Ox O2 Delivery O2 Flow Rate FiO2 10/20/17 09:07 127/64 10/20/17 09:06 119 127/64 10/20/17 08:00 115 10/20/17 08:00 97.7 119 20 127/64 96 Nasal Cannula 2.0 97.7 10/20/17 07:56 77 18 Room Air 10/20/17 06:14 132 110/62 10/20/17 05:28 121/70 10/20/17 04:00 98.5 100 20 121/70 96 Nasal Cannula 2.0 98.5 10/20/17 03:59 100 10/20/17 00:00 96/59 10/20/17 00:00 98.6 122 18 99/54 93 Nasal Cannula 2.0 98.6 10/19/17 23:50 87 10/19/17 20:00 98.4 96 20 104/53 96 Nasal Cannula 2.0 98.4 122 10/19/17 19:48 71 20 96 Nasal Cannula 2.0 28 10/19/17 19:48 28 10/19/17 19:47 71 20 Nasal Cannula 2.0 28 10/19/17 19:05 109 10/19/17 18:00 110/50 10/19/17 15:39 97.7 98 20 110/50 96 Nasal Cannula 2.0 97.7 98 10/19/17 12:59 98 20 97 Nasal Cannula 2.0 28 10/19/17 12:49 100 20 96 Nasal Cannula 2.0 28 10/19/17 12:24 135/54 10/19/17 12:13 99.3 98 20 135/54 97 Nasal Cannula 2.0 99.3 105 10/19/17 12:00 105 Height (Feet): 5 Height (Inches): 3.00 Weight (Pounds): 160 Objective General Appearance: no acute distress HEENT: normocephalic, atraumatic, anicteric, mucous membranes moist Respiratory/Chest: no respiratory distress, no accessory muscle use, decreased breath sounds, few3 scattered exp wheezes Cardiovascular: normal rate Abdomen: normal bowel sounds, soft, non tender Extremities: trace edema BLE Neurologic/Psychiatric: w/chair bound , alert, oriented x 3, responsive, normal mood/affect Musculoskeletal: atrophy - BLE Laboratory Tests Test 10/20/17 07:30 White Blood Count 6.0 K/UL (4.8-10.8) Red Blood Count 4.75 M/UL (4.20-5.40) Hemoglobin 14.5 G/DL (12.0-16.0) Hematocrit 43.8 % (37.0-47.0) Mean Corpuscular Volume 92 FL (80-99) Mean Corpuscular Hemoglobin 30.5 PG (27.0-31.0) Mean Corpuscular Hemoglobin Concent 33.1 G/DL (32.0-36.0) Red Cell Distribution Width 14.9 % (11.6-14.8) H Platelet Count 133 K/UL (150-450) L Mean Platelet Volume 8.6 FL (6.5-10.1) Neutrophils (%) (Auto) 81.3 % (45.0-75.0) H Lymphocytes (%) (Auto) 14.8 % (20.0-45.0) L Monocytes (%) (Auto) 3.5 % (1.0-10.0) Eosinophils (%) (Auto) 0.1 % (0.0-3.0) Basophils (%) (Auto) 0.3 % (0.0-2.0) Sodium Level 136 MMOL/L (136-145) Potassium Level 4.7 MMOL/L (3.5-5.1) Chloride Level 100 MMOL/L (98-107) Carbon Dioxide Level 26 MMOL/L (21-32) Anion Gap 11 mmol/L (5-15) Blood Urea Nitrogen 13 mg/dL (7-18) Creatinine 1.0 MG/DL (0.55-1.30) Estimat Glomerular Filtration Rate mL/min (>60) Glucose Level 137 MG/DL (74-106) H Calcium Level 8.8 MG/DL (8.5-10.1) Current Medications Medications (Trade) Dose Ordered Sig/Ibrahima Route PRN Reason Start Time Stop Time Status Last Admin Dose Admin Acetaminophen (Tylenol) 650 mg Q4H PRN ORAL T>100.5 10/19/17 12:00 11/15/17 19:59 Al Hydroxide/Mg Hydroxide (Mylanta II) 30 ml Q6H PRN ORAL dyspepsia 10/19/17 12:00 11/15/17 11:59 Albuterol/ Ipratropium (Albuterol/ Ipratropium) 3 ml Q4H PRN HHN Shortness of Breath 10/19/17 12:00 10/24/17 11:59 10/19/17 19:49 Allopurinol (Zyloprim) 100 mg DAILY ORAL 10/20/17 09:00 11/16/17 08:59 10/20/17 09:07 Clotrimazole (Lotrimin) 1 applic THREE TIMES A DAY TOPIC 10/19/17 13:00 11/18/17 08:59 10/20/17 09:06 Divalproex Sodium (Depakote) 250 mg Q12HR ORAL 10/19/17 21:00 11/15/17 20:59 10/20/17 09:06 Escitalopram Oxalate (Lexapro) 10 mg DAILY ORAL 10/20/17 09:00 11/16/17 15:59 10/20/17 09:07 Hydralazine HCl (Apresoline) 25 mg Q6HR ORAL 10/19/17 12:00 11/16/17 00:00 10/20/17 05:28 Levofloxacin 100 ml @ 100 mls/hr Q24H IVPB 10/19/17 16:00 10/24/17 15:59 10/19/17 16:22 Lisinopril (Zestril) 5 mg DAILY ORAL 10/20/17 09:00 11/16/17 08:59 10/20/17 09:07 Methylprednisolone Sodium Succinate (Solu-MEDROL) 40 mg EVERY 8 HOURS IVP 10/19/17 14:00 11/18/17 13:59 10/20/17 05:28 Metoprolol Tartrate (Lopressor) 25 mg BID ORAL 10/20/17 09:00 11/19/17 08:59 10/20/17 09:06 Nitroglycerin (Ntg) 0.4 mg Q5MIN X 3 DOSES PRN SL Prn Chest Pain 10/19/17 11:30 11/18/17 11:29 Ondansetron HCl (Zofran) 4 mg Q6H PRN IVP Nausea & Vomiting 10/19/17 14:00 11/15/17 19:59 Polyethylene Glycol (Miralax) 17 gm DAILYPRN PRN ORAL Constipation 10/19/17 12:00 11/15/17 11:59 Promethazine HCl/ Codeine (Phenergan with Codeine) 5 ml Q4H PRN ORAL For Cough 10/19/17 12:00 11/15/17 19:59 Rivaroxaban (Xarelto) 10 mg DAILY ORAL 10/20/17 09:00 11/16/17 08:59 10/20/17 09:06 Sodium Chloride 1,000 ml @ 50 mls/hr Q20H IV 10/19/17 11:30 11/16/17 13:29 10/20/17 06:17 Temazepam (Restoril) 15 mg HSPRN PRN ORAL Insomnia 10/19/17 21:00 10/23/17 20:59 Danica Nayak M.D. October 20, 2017 11:27
[2017-10-20 12:00] VITALS: BP 141/74
--- NOTE | 2017-10-20 12:30 | General Progress Note ---
Assessment/Plan Assessment/Plan mdd cognitive impairment lexapro 10mg qam provided ro Subjective Date patient seen: October 20, 2017 Neurologic/Psychiatric: Reports: anxiety, depressed, emotional problems Allergies: Coded Allergies: NO KNOWN DRUG ALLERGIES (Unverified Allergy, Unknown, 07/11/15) Subjective the pt is more confused however calm Objective Last 24 Hour Vital Signs Date Time Temp Pulse Resp B/P (MAP) Pulse Ox O2 Delivery O2 Flow Rate FiO2 10/20/17 12:00 98.4 105 18 141/74 95 Nasal Cannula 2.0 98.4 10/20/17 09:07 127/64 10/20/17 09:06 119 127/64 10/20/17 08:00 115 10/20/17 08:00 97.7 119 20 127/64 96 Nasal Cannula 2.0 97.7 10/20/17 07:56 77 18 Room Air 10/20/17 06:14 132 110/62 10/20/17 05:28 121/70 10/20/17 04:00 98.5 100 20 121/70 96 Nasal Cannula 2.0 98.5 10/20/17 03:59 100 10/20/17 00:00 96/59 10/20/17 00:00 98.6 122 18 99/54 93 Nasal Cannula 2.0 98.6 10/19/17 23:50 87 10/19/17 20:00 98.4 96 20 104/53 96 Nasal Cannula 2.0 98.4 122 10/19/17 19:48 71 20 96 Nasal Cannula 2.0 28 10/19/17 19:48 28 10/19/17 19:47 71 20 Nasal Cannula 2.0 28 10/19/17 19:05 109 10/19/17 18:00 110/50 10/19/17 15:39 97.7 98 20 110/50 96 Nasal Cannula 2.0 97.7 98 10/19/17 12:59 98 20 97 Nasal Cannula 2.0 28 10/19/17 12:49 100 20 96 Nasal Cannula 2.0 28 Intake and Output 10/19/17 10/20/17 19:00 07:00 Intake Total 791.667 ml 350 ml Balance 791.667 ml 350 ml Intake Oral 360 ml IV Total 431.667 ml 350 ml # Voids 2 5 Laboratory Tests 10/20/17 07:30: White Blood Count 6.0, Red Blood Count 4.75, Hemoglobin 14.5, Hematocrit 43.8, Mean Corpuscular Volume 92, Mean Corpuscular Hemoglobin 30.5, Mean Corpuscular Hemoglobin Concent 33.1, Red Cell Distribution Width 14.9H, Platelet Count 133L , Mean Platelet Volume 8.6, Neutrophils (%) (Auto) 81.3H, Lymphocytes (%) (Auto ) 14.8L, Monocytes (%) (Auto) 3.5, Eosinophils (%) (Auto) 0.1, Basophils (%) ( Auto) 0.3, Sodium Level 136, Potassium Level 4.7, Chloride Level 100, Carbon Dioxide Level 26, Anion Gap 11, Blood Urea Nitrogen 13, Creatinine 1.0, Estimat Glomerular Filtration Rate , Glucose Level 137H, Calcium Level 8.8 Height (Feet): 5 Height (Inches): 3.00 Weight (Pounds): 160 General Appearance: no apparent distress, alert Neurologic: oriented x 3, responsive, depressed affect Luiz Morrison M.D. October 20, 2017 12:30
--- NOTE | 2017-10-20 13:16 | Pulmonology Progress Note ---
Assessment/Plan Problems: (1) Encephalopathy acute (2) UTI (lower urinary tract infection) (3) H/O ETOH abuse (4) Depression (5) Seizure disorder (6) HTN (hypertension) (7) Generalized weakness (8) COPD (chronic obstructive pulmonary disease) (9) UTI (lower urinary tract infection) Assessment/Plan change abx to ceftriaxone Urine is resistant to Levofloxicne heart rate controlled, sinus now dc planning probably by tomorrow. Subjective ROS Limited/Unobtainable: No Constitutional: Reports: no symptoms HEENT: Repors: no symptoms Respiratory: Reports: no symptoms Allergies: Coded Allergies: NO KNOWN DRUG ALLERGIES (Unverified Allergy, Unknown, 07/11/15) Objective Last 24 Hour Vital Signs Date Time Temp Pulse Resp B/P (MAP) Pulse Ox O2 Delivery O2 Flow Rate FiO2 10/20/17 12:47 141/74 10/20/17 12:00 98.4 105 18 141/74 95 Nasal Cannula 2.0 98.4 10/20/17 09:07 127/64 10/20/17 09:06 119 127/64 10/20/17 08:00 115 10/20/17 08:00 97.7 119 20 127/64 96 Nasal Cannula 2.0 97.7 10/20/17 07:56 77 18 Room Air 10/20/17 06:14 132 110/62 10/20/17 05:28 121/70 10/20/17 04:00 98.5 100 20 121/70 96 Nasal Cannula 2.0 98.5 10/20/17 03:59 100 10/20/17 00:00 96/59 10/20/17 00:00 98.6 122 18 99/54 93 Nasal Cannula 2.0 98.6 10/19/17 23:50 87 10/19/17 20:00 98.4 96 20 104/53 96 Nasal Cannula 2.0 98.4 122 10/19/17 19:48 71 20 96 Nasal Cannula 2.0 28 10/19/17 19:48 28 10/19/17 19:47 71 20 Nasal Cannula 2.0 28 10/19/17 19:05 109 10/19/17 18:00 110/50 10/19/17 15:39 97.7 98 20 110/50 96 Nasal Cannula 2.0 97.7 98 Intake and Output 10/19/17 10/20/17 19:00 07:00 Intake Total 791.667 ml 350 ml Balance 791.667 ml 350 ml Intake Oral 360 ml IV Total 431.667 ml 350 ml # Voids 2 5 General Appearance: WD/WN HEENT: normocephalic, atraumatic Respiratory/Chest: chest wall non-tender, lungs clear Breasts: no masses Cardiovascular: normal peripheral pulses Abdomen: normal bowel sounds, soft, non tender 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 Laboratory Tests 10/20/17 07:30: White Blood Count 6.0, Red Blood Count 4.75, Hemoglobin 14.5, Hematocrit 43.8, Mean Corpuscular Volume 92, Mean Corpuscular Hemoglobin 30.5, Mean Corpuscular Hemoglobin Concent 33.1, Red Cell Distribution Width 14.9H, Platelet Count 133L , Mean Platelet Volume 8.6, Neutrophils (%) (Auto) 81.3H, Lymphocytes (%) (Auto ) 14.8L, Monocytes (%) (Auto) 3.5, Eosinophils (%) (Auto) 0.1, Basophils (%) ( Auto) 0.3, Sodium Level 136, Potassium Level 4.7, Chloride Level 100, Carbon Dioxide Level 26, Anion Gap 11, Blood Urea Nitrogen 13, Creatinine 1.0, Estimat Glomerular Filtration Rate , Glucose Level 137H, Calcium Level 8.8 Current Medications Medications (Trade) Dose Ordered Sig/Ibrahima Route PRN Reason Start Time Stop Time Status Last Admin Dose Admin Acetaminophen (Tylenol) 650 mg Q4H PRN ORAL T>100.5 10/19/17 12:00 11/15/17 19:59 Al Hydroxide/Mg Hydroxide (Mylanta II) 30 ml Q6H PRN ORAL dyspepsia 10/19/17 12:00 11/15/17 11:59 Albuterol/ Ipratropium (Albuterol/ Ipratropium) 3 ml Q4H PRN HHN Shortness of Breath 10/19/17 12:00 10/24/17 11:59 10/19/17 19:49 Allopurinol (Zyloprim) 100 mg DAILY ORAL 10/20/17 09:00 11/16/17 08:59 10/20/17 09:07 Ceftriaxone Sodium 1 gm/ Dextrose 55 ml @ 110 mls/hr Q24H IVPB 10/20/17 13:15 10/27/17 13:14 UNV Clotrimazole (Lotrimin) 1 applic THREE TIMES A DAY TOPIC 10/19/17 13:00 11/18/17 08:59 10/20/17 12:48 Divalproex Sodium (Depakote) 250 mg Q12HR ORAL 10/19/17 21:00 11/15/17 20:59 10/20/17 09:06 Escitalopram Oxalate (Lexapro) 10 mg DAILY ORAL 10/20/17 09:00 11/16/17 15:59 10/20/17 09:07 Hydralazine HCl (Apresoline) 25 mg Q6HR ORAL 10/19/17 12:00 11/16/17 00:00 10/20/17 12:47 Lisinopril (Zestril) 5 mg DAILY ORAL 10/20/17 09:00 11/16/17 08:59 10/20/17 09:07 Methylprednisolone Sodium Succinate (Solu-MEDROL) 40 mg DAILY IVP 10/21/17 09:00 11/18/17 13:59 UNV Metoprolol Tartrate (Lopressor) 25 mg BID ORAL 10/20/17 09:00 11/19/17 08:59 10/20/17 09:06 Nitroglycerin (Ntg) 0.4 mg Q5MIN X 3 DOSES PRN SL Prn Chest Pain 10/19/17 11:30 11/18/17 11:29 Ondansetron HCl (Zofran) 4 mg Q6H PRN IVP Nausea & Vomiting 10/19/17 14:00 11/15/17 19:59 Polyethylene Glycol (Miralax) 17 gm DAILYPRN PRN ORAL Constipation 10/19/17 12:00 11/15/17 11:59 Promethazine HCl/ Codeine (Phenergan with Codeine) 5 ml Q4H PRN ORAL For Cough 10/19/17 12:00 11/15/17 19:59 Rivaroxaban (Xarelto) 10 mg DAILY ORAL 10/20/17 09:00 11/16/17 08:59 10/20/17 09:06 Sodium Chloride 1,000 ml @ 50 mls/hr Q20H IV 10/19/17 11:30 11/16/17 13:29 10/20/17 06:17 Temazepam (Restoril) 15 mg HSPRN PRN ORAL Insomnia 10/19/17 21:00 10/23/17 20:59 Mendel Sierra MD October 20, 2017 13:16
[2017-10-20] MEDS: Albuterol/Ipratropium 3ml neb HHN PRN ×2 (13:36→20:45)
--- NOTE | 2017-10-20 13:51 | Cardiology Report ---
APPROVED REPORT EKG Measurement Heart [id number] AL 114P [id number] Sinus tachycardia Indeterminate axis Low voltage QRS Septal infarct, age undetermined Possible Lateral infarct, age undetermined Prolonged QT Abnormal ECG
[2017-10-20] MEDS ORDERED: cefTRIAXone 1 GM in D5W 55 ML IVPB SCH (14:30)
[2017-10-20] MEDS: Cefdinir 300mg cap ORAL SCH ×2 (15:34→23:05)
[2017-10-20] MEDS: Promethazine/Codeine 5ml UD ORAL PRN ×2 (15:34→23:10)
[2017-10-20 16:00] VITALS: BP 120/71
[2017-10-20] MEDS ORDERED: Levofloxacin 500mg tab ORAL SCH (16:30)
[2017-10-20 20:00] VITALS: BP 108/73
--- NOTE | 2017-10-20 21:31 | Cardiology Progress Note ---
Assessment/Plan Assessment/Plan pt seen adn examined full note to be dicatated back in sinus [id number] Objective Last 24 Hour Vital Signs Date Time Temp Pulse Resp B/P (MAP) Pulse Ox O2 Delivery O2 Flow Rate FiO2 10/20/17 20:45 67 18 96 Nasal Cannula 2.0 28 10/20/17 20:45 28 10/20/17 20:45 67 18 Nasal Cannula 2.0 28 10/20/17 18:06 141/74 10/20/17 18:05 75 141/74 10/20/17 16:00 61 10/20/17 16:00 97.7 83 20 120/71 96 Nasal Cannula 2.0 97.7 10/20/17 13:36 28 10/20/17 13:36 75 20 98 Nasal Cannula 2.0 28 10/20/17 12:47 141/74 10/20/17 12:00 125 10/20/17 12:00 98.4 105 18 141/74 95 Nasal Cannula 2.0 98.4 10/20/17 09:07 127/64 10/20/17 09:06 119 127/64 10/20/17 08:00 115 10/20/17 08:00 97.7 119 20 127/64 96 Nasal Cannula 2.0 97.7 10/20/17 07:56 77 18 Room Air 10/20/17 06:14 132 110/62 10/20/17 05:28 121/70 10/20/17 04:00 98.5 100 20 121/70 96 Nasal Cannula 2.0 98.5 10/20/17 03:59 100 10/20/17 00:00 96/59 10/20/17 00:00 98.6 122 18 99/54 93 Nasal Cannula 2.0 98.6 10/19/17 23:50 87 Intake and Output 10/19/17 10/20/17 19:00 07:00 Intake Total 791.667 ml 400 ml Balance 791.667 ml 400 ml Intake Oral 360 ml IV Total 431.667 ml 400 ml # Voids 2 5 Laboratory Tests Test 10/20/17 07:30 White Blood Count 6.0 K/UL (4.8-10.8) Red Blood Count 4.75 M/UL (4.20-5.40) Hemoglobin 14.5 G/DL (12.0-16.0) Hematocrit 43.8 % (37.0-47.0) Mean Corpuscular Volume 92 FL (80-99) Mean Corpuscular Hemoglobin 30.5 PG (27.0-31.0) Mean Corpuscular Hemoglobin Concent 33.1 G/DL (32.0-36.0) Red Cell Distribution Width 14.9 % (11.6-14.8) H Platelet Count 133 K/UL (150-450) L Mean Platelet Volume 8.6 FL (6.5-10.1) Neutrophils (%) (Auto) 81.3 % (45.0-75.0) H Lymphocytes (%) (Auto) 14.8 % (20.0-45.0) L Monocytes (%) (Auto) 3.5 % (1.0-10.0) Eosinophils (%) (Auto) 0.1 % (0.0-3.0) Basophils (%) (Auto) 0.3 % (0.0-2.0) Sodium Level 136 MMOL/L (136-145) Potassium Level 4.7 MMOL/L (3.5-5.1) Chloride Level 100 MMOL/L (98-107) Carbon Dioxide Level 26 MMOL/L (21-32) Anion Gap 11 mmol/L (5-15) Blood Urea Nitrogen 13 mg/dL (7-18) Creatinine 1.0 MG/DL (0.55-1.30) Estimat Glomerular Filtration Rate mL/min (>60) Glucose Level 137 MG/DL (74-106) H Calcium Level 8.8 MG/DL (8.5-10.1) Akbar Reno MD October 20, 2017 21:31
[2017-10-21] VITALS: BP 108/57
--- NOTE | 2017-10-21 01:30 | Consultation ---
DATE OF CONSULTATION: 10/20/2017 HEMATOLOGY/ONCOLOGY CONSULTATION CONSULTING PHYSICIAN: Jv Rodriguez M.D. REFERRING PHYSICIAN: Mendel Sierra M.D. REASON FOR CONSULTATION: Evaluation of thrombocytopenia. IDENTIFICATION DATA: Dear Dr. Sierra, The patient is a 77-year-old female with past medical history, which is significant for alcohol abuse, depression, halfway resident, at this time presents with erratic behavior. Upon arrival, noted to be fatigued, with persistent cough, features. She was admitted here for further evaluation and noted to have a platelet count of less than 140. Hematology Service was consulted for further evaluation and treatment. PAST MEDICAL HISTORY: History of alcohol abuse, anemia, hypertension, chronic obstructive pulmonary disease, atrial flutter, CAD, and alcohol abuse, bilateral hip replacement, seizure disorder. PAST SURGICAL HISTORY: Bilateral hip replacement. ALLERGIES: No known drug allergies. SOCIAL HISTORY: Alcohol abuse in the past. FAMILY HISTORY: Noncontributory. REVIEW OF SYSTEMS: CONSTITUTIONAL: No fevers, chills, or night sweats. SKIN: No rashes, bumps, or itching. HEENT: No headache, hearing or vision changes. BREASTS: No lumps, pain, or discharge. PULMONARY: No cough, sputum, or shortness of breath. GASTROINTESTINAL: No nausea, vomiting, or diarrhea. GENITOURINARY: No dysuria, frequency, or urgency. MUSCULOSKELETAL: No joint swelling, muscle pain, or trauma. PHYSICAL EXAMINATION: VITAL SIGNS: Reviewed. GENERAL: Not in acute distress. PULMONARY: Decreased breath sounds. CARDIOVASCULAR: Regular rate. No S3 or S4. ABDOMEN: Soft, nontender, and nondistended. EXTREMITIES: No cyanosis, no swelling or edema noted. LABORATORY DATA: Platelet count of approximately 121,000 to 130,000. ASSESSMENT AND RECOMMENDATIONS: 1. Thrombocytopenia, likely secondary to underlying alcohol abuse. Continue to closely monitor. Obtain ultrasound of the abdomen. 2. DVT of the left leg, recanalized. Does not require any further anticoagulation. 3. Urinary tract infection. Currently, is on broad-spectrum antibiotics. 4. History of alcohol abuse. 5. Seizure disorder. 6. Hypertension with systolic blood pressure greater than 140. I appreciate the consultation. Jv Rodriguez M.D. DR: GLORIA JOB#: [id number] CC:
[2017-10-21 04:00] VITALS: BP 133/54
[2017-10-21] MEDS: HydrALAZINE 25mg tab ORAL SCH ×2 (06:00)
[2017-10-21 08:00] VITALS: BP 115/56
--- NOTE | 2017-10-21 08:09 | General Progress Note ---
Assessment/Plan Assessment/Plan ASSESSMENT AND RECS: 1. Thrombocytopenia, likely secondary to underlying alcohol abuse. Continue to closely monitor. Obtain ultrasound of the abdomen. --> counts have been in the 100-150k range, closely monitor for improvement --> if any bleeding, could be platelet defect 2. DVT of the left leg, recanalized. Does not require any further anticoagulation. ==> no evidence of leg swelling 3. Urinary tract infection. Currently, is on broad-spectrum antibiotics. --> as per pcp 4. History of alcohol abuse. 5. Seizure disorder. 6. Hypertension with systolic blood pressure greater than 140. Subjective Constitutional: Denies: no symptoms, chills, diaphoresis, fever, malaise, weakness, other HEENT: Denies: no symptoms, eye pain, blurred vision, tearing, double vision, ear pain, ear discharge, nose pain, nose congestion, throat pain, throat swelling, mouth pain, mouth swelling, other Cardiovascular: Denies: no symptoms, chest pain, edema, irregular heart rate, lightheadedness, palpitations, syncope, other Respiratory: Denies: no symptoms, cough, orthopnea, shortness of breath, SOB with excertion, SOB at rest, sputum, stridor, wheezing, other Gastrointestinal/Abdominal: Denies: no symptoms, abdomen distended, abdominal pain, black stools, tarry stools, blood in stool, constipated, diarrhea, difficulty swallowing, nausea, poor appetite, poor fluid intake, rectal bleeding , vomiting, other Genitourinary: Denies: no symptoms, burning, discharge, frequency, flank pain, hematuria, incontinence, pain, urgency, other Neurologic/Psychiatric: Denies: no symptoms, anxiety, depressed, emotional problems, headache, numbness, paresthesia, pre-existing deficit, seizure, tingling, tremors, weakness, other Endocrine: Denies: no symptoms, excessive sweating, flushing, intolerance to cold, intolerance to heat, increased hunger, increased thirst, increased urine, unexplained weight gain, unexplained weight loss, other Hematologic/Lymphatic: Denies: no symptoms, anemia, easy bleeding, easy bruising, other Allergies: Coded Allergies: NO KNOWN DRUG ALLERGIES (Unverified Allergy, Unknown, 07/11/15) Subjective no events, is on abx Objective Last 24 Hour Vital Signs Date Time Temp Pulse Resp B/P (MAP) Pulse Ox O2 Delivery O2 Flow Rate FiO2 10/21/17 08:03 92 Nasal Cannula 2.0 28 10/21/17 08:02 Nasal Cannula 2.0 28 10/21/17 07:27 115 20 Nasal Cannula 2.0 28 10/21/17 06:00 110/60 10/21/17 04:41 96 10/21/17 04:00 97.3 117 21 133/54 95 Nasal Cannula 2.0 97.3 10/21/17 00:00 97.9 107 22 108/57 97 Nasal Cannula 2.0 97.9 10/21/17 00:00 108/57 10/20/17 23:59 107 10/20/17 20:45 67 18 96 Nasal Cannula 2.0 28 10/20/17 20:45 28 10/20/17 20:45 67 18 Nasal Cannula 2.0 28 10/20/17 20:00 98.7 106 19 108/73 96 Nasal Cannula 2.0 98.7 10/20/17 19:41 89 10/20/17 18:06 141/74 10/20/17 18:05 75 141/74 10/20/17 16:00 61 10/20/17 16:00 97.7 83 20 120/71 96 Nasal Cannula 2.0 97.7 10/20/17 13:36 28 10/20/17 13:36 75 20 98 Nasal Cannula 2.0 28 10/20/17 12:47 141/74 10/20/17 12:00 125 10/20/17 12:00 98.4 105 18 141/74 95 Nasal Cannula 2.0 98.4 10/20/17 09:07 127/64 10/20/17 09:06 119 127/64 Intake and Output 10/20/17 10/21/17 19:00 07:00 Intake Total 1030 ml Output Total 0 ml Balance 1030 ml 0 ml Intake Oral 480 ml IV Total 550 ml Output Urine Total 0 ml # Voids 3 # Bowel Movements 1 Height (Feet): 5 Height (Inches): 3.00 Weight (Pounds): 160 General Appearance: alert EENT: normal ENT inspection Neck: normal alignment Cardiovascular: regular rhythm Respiratory/Chest: normal breath sounds Extremities: non-tender Edema: 1+ Leg (L), 1+ Leg (R) Edema: mild edema Neurologic: alert Kleynberg,Jv L. MD October 21, 2017 08:09
--- NOTE | 2017-10-21 08:27 | Physician Query ---
--------- THIS DOCUMENT IS A PERMANENT PART OF THE MEDICAL RECORD --------- PLEASE COMPLETE THE FORM BEFORE SIGNING Date: 10/21/2017 [employer] Operator/CDS's Name: Serjio Eubanks [employer] Operator/CDS's Phone #: [phone] Roe Exercise your independent professional judgment when responding to query. Questions asked do not imply particular answer is desired or expected. We greatly appreciate your clarification on this issue. Clinical Documentation States: Consultation notes from 10/18/2017 includes impression of "? pneumonia". Clinical Findings Show: Symptoms: Shortness of breath, cough with Yellowish sputum Imaging: CXR: possibly on the basis of overlying soft tissue opacities but pleural fluid and/or basilar parenchymal disease also possible Antibiotics: Vancomycin, Cefepime, Ceftriaxone, Levofloxacin Please clarify the status of the diagnosis "Pneumonia" as documented in this patient who has cough with Yellow sputum and is being treated with broad spectrum antibiotics. PHYSICIAN RESPONSE: [ ] The above diagnosis was monitored, evaluated, and/or treated and is a confirmed diagnosis [ ] The above diagnosis was Ruled out [ ] The above diagnosis is still a likely, suspected, probable diagnosis [ ] Other, please specify: [ ] Clinically unable to determine Was pneumonia present on admission []Yes [] No [] Clinically Undeterminable Please also document response in your Progress Notes and/or Discharge Summary and indicate if the condition was present on admission. LASHAWND
[2017-10-21] MEDS: Lisinopril 2.5mg tab ORAL SCH (08:59)
[2017-10-21] MEDS: Cefdinir 300mg cap ORAL SCH ×2 (09:00→21:40)
[2017-10-21] MEDS: Xarelto 10mg tab ORAL SCH (09:00)
[2017-10-21] MEDS: Allopurinol 100mg Tab ORAL SCH (09:00)
[2017-10-21] MEDS: Solu-MEDROL 40mg Inj IVP SCH (09:00)
[2017-10-21] MEDS: Metoprolol 25mg tab ORAL SCH (09:00)
--- NOTE | 2017-10-21 09:53 | Infectious Diseases Prog Note ---
Assessment/Plan Assessment/Plan ASSESSMENT: The patient is a 76-year-old female with Bronchitis, possible pneumonia. Chest x-ray: Blunting of the left costophrenic angle, unchanged compared to the prior exam, which may suggest a mild left pleural effusion versus pleural thickening. Unchanged appearance of mildly increased interstitial markings. This may be related to chronic senescent changes, however differential diagnosis may also include mild pulmonary vascular congestion or mild interstitial pneumonitis. -sp cx ordered, not collected. Positive urine culture > 100K P.mirabilis (S Ceftriaxone)> UTI ( +urinary hesitancy, no dysuria or frequency ) -u/a wbc tntc, nit +, leuk +3 Afebrile. normal white blood cells. Rule out bacteremia. -Bcx NTD History of coag-negative Staph bacteremia (in July,), s/p Rx 2 weeks -JIMY tickened MV, no vegetations MRSA colonization Hypertension. COPD. History of atrial flutter. CAD status post stent. History of alcohol abuse. History of bilateral hip replacement. Seizure disorder. PLAN: cont PO Cefdinir #2/5 for UTI (abx d#5 for bronchitis/possible PNA) -10/19 SP Levaquin #3 Monitor CBC. Monitor BMP. Monitor chest x-ray. Monitor cultures (blood) Subjective Allergies: Coded Allergies: NO KNOWN DRUG ALLERGIES (Unverified Allergy, Unknown, 07/11/15) Subjective afebrile at 2L NC no leukocytosis Bcx NTD Objective Vital Signs Last 24 Hour Vital Signs Date Time Temp Pulse Resp B/P (MAP) Pulse Ox O2 Delivery O2 Flow Rate FiO2 10/21/17 09:00 115 110/60 10/21/17 08:59 116/52 10/21/17 08:03 92 Nasal Cannula 2.0 28 10/21/17 08:02 Nasal Cannula 2.0 28 10/21/17 07:27 115 20 Nasal Cannula 2.0 28 10/21/17 06:00 110/60 10/21/17 04:41 96 10/21/17 04:00 97.3 117 21 133/54 95 Nasal Cannula 2.0 97.3 10/21/17 00:00 97.9 107 22 108/57 97 Nasal Cannula 2.0 97.9 10/21/17 00:00 108/57 10/20/17 23:59 107 10/20/17 20:45 67 18 96 Nasal Cannula 2.0 28 10/20/17 20:45 28 10/20/17 20:45 67 18 Nasal Cannula 2.0 28 10/20/17 20:00 98.7 106 19 108/73 96 Nasal Cannula 2.0 98.7 10/20/17 19:41 89 10/20/17 18:06 141/74 10/20/17 18:05 75 141/74 10/20/17 16:00 61 10/20/17 16:00 97.7 83 20 120/71 96 Nasal Cannula 2.0 97.7 10/20/17 13:36 28 10/20/17 13:36 75 20 98 Nasal Cannula 2.0 28 10/20/17 12:47 141/74 10/20/17 12:00 125 10/20/17 12:00 98.4 105 18 141/74 95 Nasal Cannula 2.0 98.4 Height (Feet): 5 Height (Inches): 3.00 Weight (Pounds): 160 Objective General Appearance: no acute distress HEENT: normocephalic, atraumatic, anicteric, mucous membranes moist Respiratory/Chest: no respiratory distress, no accessory muscle use, decreased breath sounds, few3 scattered exp wheezes Cardiovascular: normal rate Abdomen: normal bowel sounds, soft, non tender Extremities: trace edema BLE Neurologic/Psychiatric: w/chair bound , alert, oriented x 3, responsive, normal mood/affect Musculoskeletal: atrophy - BLE Current Medications Medications (Trade) Dose Ordered Sig/Ibrahima Route PRN Reason Start Time Stop Time Status Last Admin Dose Admin Acetaminophen (Tylenol) 650 mg Q4H PRN ORAL T>100.5 10/19/17 12:00 11/15/17 19:59 Al Hydroxide/Mg Hydroxide (Mylanta II) 30 ml Q6H PRN ORAL dyspepsia 10/19/17 12:00 11/15/17 11:59 Albuterol/ Ipratropium (Albuterol/ Ipratropium) 3 ml Q4H PRN HHN Shortness of Breath 10/19/17 12:00 10/24/17 11:59 10/20/17 20:45 Allopurinol (Zyloprim) 100 mg DAILY ORAL 10/20/17 09:00 11/16/17 08:59 10/21/17 09:00 Cefdinir (Cefdinir) 300 mg Q12HR ORAL 10/20/17 16:00 10/27/17 15:59 10/21/17 09:00 Clotrimazole (Lotrimin) 1 applic THREE TIMES A DAY TOPIC 10/19/17 13:00 11/18/17 08:59 10/21/17 09:01 Divalproex Sodium (Depakote) 250 mg Q12HR ORAL 10/19/17 21:00 11/15/17 20:59 10/21/17 09:00 Escitalopram Oxalate (Lexapro) 10 mg DAILY ORAL 10/20/17 09:00 11/16/17 15:59 10/21/17 08:59 Hydralazine HCl (Apresoline) 25 mg Q6HR ORAL 10/19/17 12:00 11/16/17 00:00 10/21/17 06:00 Lisinopril (Zestril) 5 mg DAILY ORAL 10/20/17 09:00 11/16/17 08:59 10/21/17 08:59 Methylprednisolone Sodium Succinate (Solu-MEDROL) 40 mg DAILY IVP 10/21/17 09:00 11/18/17 13:59 10/21/17 09:00 Metoprolol Tartrate (Lopressor) 25 mg BID ORAL 10/20/17 09:00 11/19/17 08:59 10/21/17 09:00 Nitroglycerin (Ntg) 0.4 mg Q5MIN X 3 DOSES PRN SL Prn Chest Pain 10/19/17 11:30 11/18/17 11:29 Ondansetron HCl (Zofran) 4 mg Q6H PRN IVP Nausea & Vomiting 10/19/17 14:00 11/15/17 19:59 Polyethylene Glycol (Miralax) 17 gm DAILYPRN PRN ORAL Constipation 10/19/17 12:00 11/15/17 11:59 Promethazine HCl/ Codeine (Phenergan with Codeine) 5 ml Q4H PRN ORAL For Cough 10/19/17 12:00 11/15/17 19:59 10/20/17 23:10 Rivaroxaban (Xarelto) 10 mg DAILY ORAL 10/20/17 09:00 11/16/17 08:59 10/21/17 09:00 Sodium Chloride 1,000 ml @ 50 mls/hr Q20H IV 10/19/17 11:30 11/16/17 13:29 10/21/17 03:06 Temazepam (Restoril) 15 mg HSPRN PRN ORAL Insomnia 10/19/17 21:00 10/23/17 20:59 Danica Nayak M.D. October 21, 2017 09:53
--- NOTE | 2017-10-21 11:53 | Cardiology Progress Note ---
Assessment/Plan Assessment/Plan paf hs of leadless pacer implantation bronchospams copd seem paced now has sig bronchosapsm will dc bb dc hydralazien start on cardizem 60 tid for now increase xarelto to 15 mg dialy Subjective Cardiovascular: Denies: chest pain, lightheadedness, palpitations Respiratory: Denies: shortness of breath Gastrointestinal/Abdominal: Denies: abdominal pain Genitourinary: Denies: burning Objective Last 24 Hour Vital Signs Date Time Temp Pulse Resp B/P (MAP) Pulse Ox O2 Delivery O2 Flow Rate FiO2 10/21/17 09:00 115 110/60 10/21/17 08:59 116/52 10/21/17 08:03 92 Nasal Cannula 2.0 28 10/21/17 08:02 Nasal Cannula 2.0 28 10/21/17 07:27 115 20 Nasal Cannula 2.0 28 10/21/17 06:00 110/60 10/21/17 04:41 96 10/21/17 04:00 97.3 117 21 133/54 95 Nasal Cannula 2.0 97.3 10/21/17 00:00 97.9 107 22 108/57 97 Nasal Cannula 2.0 97.9 10/21/17 00:00 108/57 10/20/17 23:59 107 10/20/17 20:45 67 18 96 Nasal Cannula 2.0 28 10/20/17 20:45 28 10/20/17 20:45 67 18 Nasal Cannula 2.0 28 10/20/17 20:00 98.7 106 19 108/73 96 Nasal Cannula 2.0 98.7 10/20/17 19:41 89 10/20/17 18:06 141/74 10/20/17 18:05 75 141/74 10/20/17 16:00 61 10/20/17 16:00 97.7 83 20 120/71 96 Nasal Cannula 2.0 97.7 10/20/17 13:36 28 10/20/17 13:36 75 20 98 Nasal Cannula 2.0 28 10/20/17 12:47 141/74 10/20/17 12:00 125 10/20/17 12:00 98.4 105 18 141/74 95 Nasal Cannula 2.0 98.4 General Appearance: no apparent distress, alert Cardiovascular: normal rate Respiratory/Chest: expiratory wheezing, inspiratory wheezing Abdomen: normal bowel sounds, non tender, soft Extremities: no swelling Intake and Output 10/20/17 10/21/17 19:00 07:00 Intake Total 1030 ml Output Total 0 ml Balance 1030 ml 0 ml Intake Oral 480 ml IV Total 550 ml Output Urine Total 0 ml # Voids 3 # Bowel Movements 1 Akbar Reno MD October 21, 2017 11:53
[2017-10-21 12:00] VITALS: BP 115/56
--- NOTE | 2017-10-21 12:20 | Pulmonology Progress Note ---
Assessment/Plan Problems: (1) Encephalopathy acute (2) UTI (lower urinary tract infection) (3) H/O ETOH abuse (4) Depression (5) Seizure disorder (6) HTN (hypertension) (7) Generalized weakness (8) COPD (chronic obstructive pulmonary disease) (9) UTI (lower urinary tract infection) Assessment/Plan change abx to ceftriaxone Urine is resistant to Levofloxicne heart rate controlled, sinus now dc planning probably by tomorrow. d/w Dr kelley, Be blockers were stopped Subjective ROS Limited/Unobtainable: No Constitutional: Reports: no symptoms HEENT: Repors: no symptoms Respiratory: Reports: no symptoms Allergies: Coded Allergies: NO KNOWN DRUG ALLERGIES (Unverified Allergy, Unknown, 07/11/15) Objective Last 24 Hour Vital Signs Date Time Temp Pulse Resp B/P (MAP) Pulse Ox O2 Delivery O2 Flow Rate FiO2 10/21/17 09:00 115 110/60 10/21/17 08:59 116/52 10/21/17 08:03 92 Nasal Cannula 2.0 28 10/21/17 08:02 Nasal Cannula 2.0 28 10/21/17 08:00 97.7 117 21 115/56 98 Nasal Cannula 2.0 97.7 10/21/17 07:27 115 20 Nasal Cannula 2.0 28 10/21/17 06:00 110/60 10/21/17 04:41 96 10/21/17 04:00 97.3 117 21 133/54 95 Nasal Cannula 2.0 97.3 10/21/17 00:00 97.9 107 22 108/57 97 Nasal Cannula 2.0 97.9 10/21/17 00:00 108/57 10/20/17 23:59 107 10/20/17 20:45 67 18 96 Nasal Cannula 2.0 28 10/20/17 20:45 28 10/20/17 20:45 67 18 Nasal Cannula 2.0 28 10/20/17 20:00 98.7 106 19 108/73 96 Nasal Cannula 2.0 98.7 10/20/17 19:41 89 10/20/17 18:06 141/74 10/20/17 18:05 75 141/74 10/20/17 16:00 61 10/20/17 16:00 97.7 83 20 120/71 96 Nasal Cannula 2.0 97.7 10/20/17 13:36 28 10/20/17 13:36 75 20 98 Nasal Cannula 2.0 28 10/20/17 12:47 141/74 Intake and Output 10/20/17 10/21/17 19:00 07:00 Intake Total 1030 ml Output Total 0 ml Balance 1030 ml 0 ml Intake Oral 480 ml IV Total 550 ml Output Urine Total 0 ml # Voids 3 # Bowel Movements 1 General Appearance: WD/WN HEENT: normocephalic, atraumatic Respiratory/Chest: chest wall non-tender, lungs clear Breasts: no masses Cardiovascular: normal rate Abdomen: normal bowel sounds, soft, non tender Genitourinary: normal external genitalia Extremities: no cyanosis Skin: no rash Current Medications Medications (Trade) Dose Ordered Sig/Ibrahima Route PRN Reason Start Time Stop Time Status Last Admin Dose Admin Acetaminophen (Tylenol) 650 mg Q4H PRN ORAL T>100.5 10/19/17 12:00 11/15/17 19:59 Al Hydroxide/Mg Hydroxide (Mylanta II) 30 ml Q6H PRN ORAL dyspepsia 10/19/17 12:00 11/15/17 11:59 Albuterol/ Ipratropium (Albuterol/ Ipratropium) 3 ml Q4H PRN HHN Shortness of Breath 10/19/17 12:00 10/24/17 11:59 10/20/17 20:45 Allopurinol (Zyloprim) 100 mg DAILY ORAL 10/20/17 09:00 11/16/17 08:59 10/21/17 09:00 Apixaban (Eliquis) 5 mg BID ORAL 10/22/17 09:00 11/21/17 08:59 UNV Cefdinir (Cefdinir) 300 mg Q12HR ORAL 10/20/17 16:00 10/27/17 15:59 10/21/17 09:00 Clotrimazole (Lotrimin) 1 applic THREE TIMES A DAY TOPIC 10/19/17 13:00 11/18/17 08:59 10/21/17 09:01 Diltiazem HCl (Cardizem) 60 mg EVERY 8 HOURS ORAL 10/21/17 14:00 11/20/17 13:59 UNV Divalproex Sodium (Depakote) 250 mg Q12HR ORAL 10/19/17 21:00 11/15/17 20:59 10/21/17 09:00 Escitalopram Oxalate (Lexapro) 10 mg DAILY ORAL 10/20/17 09:00 11/16/17 15:59 10/21/17 08:59 Lisinopril (Zestril) 5 mg DAILY ORAL 10/20/17 09:00 11/16/17 08:59 10/21/17 08:59 Methylprednisolone Sodium Succinate (Solu-MEDROL) 40 mg DAILY IVP 10/21/17 09:00 11/18/17 13:59 10/21/17 09:00 Nitroglycerin (Ntg) 0.4 mg Q5MIN X 3 DOSES PRN SL Prn Chest Pain 10/19/17 11:30 11/18/17 11:29 Ondansetron HCl (Zofran) 4 mg Q6H PRN IVP Nausea & Vomiting 10/19/17 14:00 11/15/17 19:59 Polyethylene Glycol (Miralax) 17 gm DAILYPRN PRN ORAL Constipation 10/19/17 12:00 11/15/17 11:59 Promethazine HCl/ Codeine (Phenergan with Codeine) 5 ml Q4H PRN ORAL For Cough 10/19/17 12:00 11/15/17 19:59 10/20/17 23:10 Sodium Chloride 1,000 ml @ 50 mls/hr Q20H IV 10/19/17 11:30 11/16/17 13:29 10/21/17 03:06 Temazepam (Restoril) 15 mg HSPRN PRN ORAL Insomnia 10/19/17 21:00 10/23/17 20:59 Mendel Sierra MD October 21, 2017 12:20
[2017-10-21] MEDS: dilTIAZem HCl 60mg tab ORAL SCH ×2 (14:12→22:59)
[2017-10-21 16:00] VITALS: BP 100/47
--- NOTE | 2017-10-21 17:03 | Diagnostic Imaging Report ---
Indication: Reason For Exam: ABN LABS Technique: Levy-scale and duplex images of the upper abdomen were obtained Comparison: 12/20/2010 Findings: Gallbladder demonstrates gallstones. These are not evident previously, although previous exam thought to demonstrate a gallbladder polyp. No gallbladder wall thickening nor pericholecystic fluid Sonographic Leblanc's sign is negative. Common bile duct measures 6 mm in diameter. No intrahepatic biliary ductal dilatation. Liver demonstrates coarsened echogenicity. There may be slight surface nodularity. Portal vein and hepatic veins are patent. Pancreas is unremarkable. Spleen is unremarkable. Left kidney measures 10.5 cm in length. Right kidney measures 10 cm length. Both kidneys demonstrate normal echogenicity. There is no hydronephrosis. A cyst is seen in the lower pole the right kidney. Pelvic calcifications are seen in both renal sinuses. . Abdominal aorta is partially obscured by bowel gas, visualized portions are non-aneurysmal . Impression: Cholelithiasis. Negative for dilated ducts Mildly coarsened hepatic echogenicity and equivocal surface nodularity, if real could indicate early cirrhotic changes Bilateral nonobstructive intrarenal calculi Right renal cyst incidentally noted Note nonvisualization of portions of the abdominal aorta
[2017-10-21 20:00] VITALS: BP 105/62
--- NOTE | 2017-10-21 23:37 | General Progress Note ---
Assessment/Plan Assessment/Plan mdd cognitive impairment lexapro 10mg qam provided ro Subjective Date patient seen: October 21, 2017 Allergies: Coded Allergies: NO KNOWN DRUG ALLERGIES (Unverified Allergy, Unknown, 07/11/15) Subjective the pt is more confused however calm Objective Last 24 Hour Vital Signs Date Time Temp Pulse Resp B/P (MAP) Pulse Ox O2 Delivery O2 Flow Rate FiO2 10/21/17 22:59 62 138/62 10/21/17 21:47 87 20 Nasal Cannula 2.0 28 10/21/17 21:46 93 Nasal Cannula 2.0 28 10/21/17 21:46 Nasal Cannula 2.0 28 10/21/17 16:00 97.1 61 21 100/47 98 Nasal Cannula 2.0 97.1 10/21/17 16:00 60 10/21/17 14:12 60 115/56 10/21/17 12:00 97.8 60 21 115/56 98 Nasal Cannula 2.0 97.8 10/21/17 12:00 60 10/21/17 09:00 115 110/60 10/21/17 08:59 116/52 10/21/17 08:03 92 Nasal Cannula 2.0 28 10/21/17 08:02 Nasal Cannula 2.0 28 10/21/17 08:00 87 10/21/17 08:00 97.7 117 21 115/56 98 Nasal Cannula 2.0 97.7 10/21/17 07:27 115 20 Nasal Cannula 2.0 28 10/21/17 06:00 110/60 10/21/17 04:41 96 10/21/17 04:00 97.3 117 21 133/54 95 Nasal Cannula 2.0 97.3 10/21/17 00:00 97.9 107 22 108/57 97 Nasal Cannula 2.0 97.9 10/21/17 00:00 108/57 10/20/17 23:59 107 Intake and Output 10/20/17 10/21/17 19:00 07:00 Intake Total 1030 ml Output Total 0 ml Balance 1030 ml 0 ml Intake Oral 480 ml IV Total 550 ml Output Urine Total 0 ml # Voids 3 # Bowel Movements 1 Height (Feet): 5 Height (Inches): 3.00 Weight (Pounds): 160 Luiz Morrison M.D. October 21, 2017 23:37
[2017-10-21] MEDS: Promethazine/Codeine 5ml UD ORAL PRN (23:58)
[2017-10-22] VITALS: BP 113/71
[2017-10-22 04:00] VITALS: BP 107/74
[2017-10-22] MEDS: dilTIAZem HCl 60mg tab ORAL SCH ×2 (05:55→13:09)
[2017-10-22 08:00] VITALS: BP 139/66
[2017-10-22] MEDS: Solu-MEDROL 40mg Inj IVP SCH (09:13)
[2017-10-22] MEDS: Allopurinol 100mg Tab ORAL SCH (09:13)
[2017-10-22] MEDS: Cefdinir 300mg cap ORAL SCH ×2 (09:14→21:07)
[2017-10-22] MEDS: Lisinopril 2.5mg tab ORAL SCH (09:15)
[2017-10-22] MEDS: Eliquis 2.5mg tablet ORAL SCH ×2 (09:15→17:28)
--- NOTE | 2017-10-22 10:47 | Consultation ---
DATE OF CONSULTATION: 10/20/2017 CARDIOLOGY CONSULTATION CONSULTING PHYSICIAN: Akbar Reno M.D. REFERRING PHYSICIAN: Mendel Sierra M.D. REASON FOR REFERRAL: Atrial fibrillation with rapid ventricular response. HISTORY OF PRESENT ILLNESS: This is an elderly female who is known to me from prior evaluation and hospitalization. The patient apparently has been admitted to the hospital at this time after being found with confusion episodes while sitting in a chair at the convalescent facility. Apparently was more erratic behavior in the morning. Upon arrival, the patient told the emergency room physician that she felt weak. No fevers, chest pain, shortness of breath, nervousness. The patient was admitted to the hospital. She was noted to have some coughing since this morning, productive yellow sputum was noted. On the day of this consultation, I was contacted by the nursing staff because of an episode of atrial fibrillation rapid ventricular response in the 130s range. On review of the patient's medication, it appeared that the patient had been on beta blockers previously, was not being given here in the hospital yet, that was resumed. The patient was given a bolus of 5 mg of metoprolol and then started on some metoprolol per p.o. as well. Shortly, when I arrived in the hospital the patient was back into sinus rhythm. She actually denies any chest pain or shortness of breath. No PND, orthopnea, palpitations, dizziness, or lightheadedness. PAST MEDICAL HISTORY: Positive for history of coag-negative staph bacteremia, questionable influenza infection, urinary tract infection, atrial fibrillation with flutter history, history of leadless pacemaker implantation, COPD, overactive bladder, hyperlipidemia, gout, heart failure, epilepsy, gastroesophageal reflux disease, and MRSA colonization. During that hospitalization, she underwent a JIMY on 08/20/2017 and there was no evidence of vegetation on the transesophageal echocardiogram. ALLERGIES: She has no known drug allergies. SOCIAL HISTORY: Most recently, she was a resident of [facility] and she used to smoke 40 years ago. No alcoholic beverages, she used to use 30 years ago. REVIEW OF SYSTEMS: GASTROINTESTINAL: She denies any nausea, vomiting, diarrhea, or constipation. GENITOURINARY: She denies. PULMONARY: Positive for coughing. CONSTITUTIONAL: Negative. NEUROLOGICAL: As mentioned in HPI. PHYSICAL EXAMINATION: GENERAL: Shows to be elderly female, in no respiratory distress. VITAL SIGNS: Heart rate of 67 and blood pressure last was 108/73. NECK: Supple. No jugular venous distention. LUNGS: There is some diffuse expiratory wheezes. CARDIAC: Regular rate and rhythm. No heaves, thrills, gallops, or rubs are noted. ABDOMEN: Soft and nontender. Positive bowel sounds. EXTREMITIES: There is no clubbing, cyanosis, nor is there any edema of significant degree. NEUROLOGICAL: She is awake, alert, and responsive. LABORATORY DATA: Laboratory values from the day of this consultation, white count 6, hemoglobin 14.5, and platelet count of 133. Sodium is 136, potassium 4.7, chloride 100, bicarbonate 26, BUN 13, creatinine 1.0, glucose of 137, and calcium is 8.8. Troponin was 0.027. ASSESSMENT AND PLAN: 1. atrial fibrillation and acute tachycardia history of permanent pacemaker implantation, leadless device. 2. History of COPD. 3. History of bacteremia. 4. Transesophageal echocardiogram in July of this year. Dr. Sierra, this patient was seen in cardiac consultation. The patient appears to be comfortable at the present time. She has been resumed back on the beta-blockers earlier today to which she did respond. She is at the time of my evaluation appears to be in sinus rhythm with spontaneous beats. She certainly is at risk of having atrial fibrillation. PLAN: She has been on Xarelto that should be continued for stroke prevention. Dose should be adjusted for her renal insufficiency. Akbar Reno M.D. DR: BRETT JOB#: [id number] CC:
[2017-10-22] MEDS: Promethazine/Codeine 5ml UD ORAL PRN ×2 (10:59→15:58)
[2017-10-22] MEDS: Albuterol/Ipratropium 3ml neb HHN PRN ×2 (11:03→15:28)
--- NOTE | 2017-10-22 11:04 | Infectious Diseases Prog Note ---
Assessment/Plan Assessment/Plan ASSESSMENT: The patient is a 76-year-old female with Bronchitis, possible pneumonia. Chest x-ray: Blunting of the left costophrenic angle, unchanged compared to the prior exam, which may suggest a mild left pleural effusion versus pleural thickening. Unchanged appearance of mildly increased interstitial markings. This may be related to chronic senescent changes, however differential diagnosis may also include mild pulmonary vascular congestion or mild interstitial pneumonitis. -sp cx ordered, not collected. -Bcx neg Positive urine culture > 100K P.mirabilis (S Ceftriaxone)> UTI ( +urinary hesitancy, no dysuria or frequency ) -u/a wbc tntc, nit +, leuk +3 Afebrile. normal white blood cells. s/p Abd US: Cholelithiasis. Negative for dilated ducts. Mildly coarsened hepatic echogenicity and equivocal surface nodularity, if real could indicate early cirrhotic changes. Bilateral nonobstructive intrarenal calculi. Right renal cyst incidentally noted History of coag-negative Staph bacteremia (in July,), s/p Rx 2 weeks -JIMY tickened MV, no vegetations MRSA colonization Hypertension. COPD. History of atrial flutter. CAD status post stent. History of alcohol abuse. History of bilateral hip replacement. Seizure disorder. PLAN: cont PO Cefdinir #3/5 for UTI (abx d#6 for bronchitis/possible PNA) -10/19 SP Levaquin #3 Monitor CBC. Monitor BMP. Monitor chest x-ray. Discharge planning Subjective Allergies: Coded Allergies: NO KNOWN DRUG ALLERGIES (Unverified Allergy, Unknown, 07/11/15) Subjective afebrile at 2L NC no leukocytosis Bcx Neg Objective Vital Signs Last 24 Hour Vital Signs Date Time Temp Pulse Resp B/P (MAP) Pulse Ox O2 Delivery O2 Flow Rate FiO2 10/22/17 09:15 139/66 10/22/17 08:26 Nasal Cannula 2.0 28 10/22/17 08:26 95 Nasal Cannula 2.0 28 10/22/17 08:25 90 20 Nasal Cannula 2.0 28 10/22/17 08:00 62 10/22/17 08:00 97.9 69 20 139/66 96 Nasal Cannula 2.0 97.9 10/22/17 05:55 62 108/76 10/22/17 05:11 60 10/22/17 04:00 98.0 63 20 107/74 95 Nasal Cannula 2.0 98.0 10/22/17 00:00 97.5 60 20 113/71 97 Nasal Cannula 2.0 97.5 10/21/17 23:59 66 10/21/17 22:59 62 138/62 10/21/17 21:47 87 20 Nasal Cannula 2.0 28 10/21/17 21:46 93 Nasal Cannula 2.0 28 10/21/17 21:46 Nasal Cannula 2.0 28 10/21/17 20:00 97.9 60 19 105/62 98 Nasal Cannula 2.0 97.9 10/21/17 19:05 60 10/21/17 16:00 97.1 61 21 100/47 98 Nasal Cannula 2.0 97.1 10/21/17 16:00 60 10/21/17 14:12 60 115/56 10/21/17 12:00 97.8 60 21 115/56 98 Nasal Cannula 2.0 97.8 10/21/17 12:00 60 Height (Feet): 5 Height (Inches): 3.00 Weight (Pounds): 160 Objective General Appearance: no acute distress HEENT: normocephalic, atraumatic, anicteric, mucous membranes moist Respiratory/Chest: no respiratory distress, no accessory muscle use, decreased breath sounds, few3 scattered exp wheezes Cardiovascular: normal rate Abdomen: normal bowel sounds, soft, non tender Extremities: trace edema BLE Neurologic/Psychiatric: w/chair bound , alert, oriented x 3, responsive, normal mood/affect Musculoskeletal: atrophy - BLE Current Medications Medications (Trade) Dose Ordered Sig/Ibrahima Route PRN Reason Start Time Stop Time Status Last Admin Dose Admin Acetaminophen (Tylenol) 650 mg Q4H PRN ORAL T>100.5 10/19/17 12:00 11/15/17 19:59 Al Hydroxide/Mg Hydroxide (Mylanta II) 30 ml Q6H PRN ORAL dyspepsia 10/19/17 12:00 11/15/17 11:59 Albuterol/ Ipratropium (Albuterol/ Ipratropium) 3 ml Q4H PRN HHN Shortness of Breath 10/19/17 12:00 10/24/17 11:59 10/20/17 20:45 Allopurinol (Zyloprim) 100 mg DAILY ORAL 10/20/17 09:00 11/16/17 08:59 10/22/17 09:13 Apixaban (Eliquis) 5 mg BID ORAL 10/22/17 09:00 11/21/17 08:59 10/22/17 09:15 Cefdinir (Cefdinir) 300 mg Q12HR ORAL 10/20/17 16:00 10/27/17 15:59 10/22/17 09:14 Clotrimazole (Lotrimin) 1 applic THREE TIMES A DAY TOPIC 10/19/17 13:00 11/18/17 08:59 10/22/17 10:52 Diltiazem HCl (Cardizem) 60 mg EVERY 8 HOURS ORAL 10/21/17 14:00 11/20/17 13:59 10/22/17 05:55 Divalproex Sodium (Depakote) 250 mg Q12HR ORAL 10/19/17 21:00 11/15/17 20:59 10/22/17 09:14 Escitalopram Oxalate (Lexapro) 10 mg DAILY ORAL 10/20/17 09:00 11/16/17 15:59 10/22/17 09:14 Lisinopril (Zestril) 5 mg DAILY ORAL 10/20/17 09:00 11/16/17 08:59 10/22/17 09:15 Methylprednisolone Sodium Succinate (Solu-MEDROL) 40 mg DAILY IVP 10/21/17 09:00 11/18/17 13:59 10/22/17 09:13 Nitroglycerin (Ntg) 0.4 mg Q5MIN X 3 DOSES PRN SL Prn Chest Pain 10/19/17 11:30 11/18/17 11:29 Ondansetron HCl (Zofran) 4 mg Q6H PRN IVP Nausea & Vomiting 10/19/17 14:00 11/15/17 19:59 Polyethylene Glycol (Miralax) 17 gm DAILYPRN PRN ORAL Constipation 10/19/17 12:00 11/15/17 11:59 Promethazine HCl/ Codeine (Phenergan with Codeine) 5 ml Q4H PRN ORAL For Cough 10/19/17 12:00 11/15/17 19:59 10/22/17 10:59 Sodium Chloride 1,000 ml @ 50 mls/hr Q20H IV 10/19/17 11:30 11/16/17 13:29 10/21/17 23:56 Temazepam (Restoril) 15 mg HSPRN PRN ORAL Insomnia 10/19/17 21:00 10/23/17 20:59 Danica Nayak M.D. October 22, 2017 11:04
--- NOTE | 2017-10-22 11:46 | General Progress Note ---
Assessment/Plan Assessment/Plan ASSESSMENT/RECS: 1. Thrombocytopenia, likely secondary to underlying alcohol abuse. Continue to closely monitor. US Mildly coarsened hepatic echogenicity and equivocal surface nodularity, if real could indicate early cirrhotic changes --> counts have been in the 100-150k range, closely monitor for improvement --> if any bleeding, could be platelet defect 2. DVT of the left leg, recanalized. Does not require any further anticoagulation. ==> no evidence of leg swelling 3. Urinary tract infection. Currently, is on broad-spectrum antibiotics. --> as per pcp 4. History of alcohol abuse. 5. Seizure disorder. 6. Htn with systolic blood pressure greater than 140. Subjective Constitutional: Denies: no symptoms, chills, diaphoresis, fever, malaise, weakness, other HEENT: Denies: no symptoms, eye pain, blurred vision, tearing, double vision, ear pain, ear discharge, nose pain, nose congestion, throat pain, throat swelling, mouth pain, mouth swelling, other Cardiovascular: Denies: no symptoms, chest pain, edema, irregular heart rate, lightheadedness, palpitations, syncope, other Respiratory: Denies: no symptoms, cough, orthopnea, shortness of breath, SOB with excertion, SOB at rest, sputum, stridor, wheezing, other Gastrointestinal/Abdominal: Denies: no symptoms, abdomen distended, abdominal pain, black stools, tarry stools, blood in stool, constipated, diarrhea, difficulty swallowing, nausea, poor appetite, poor fluid intake, rectal bleeding , vomiting, other Genitourinary: Denies: no symptoms, burning, discharge, frequency, flank pain, hematuria, incontinence, pain, urgency, other Neurologic/Psychiatric: Denies: no symptoms, anxiety, depressed, emotional problems, headache, numbness, paresthesia, pre-existing deficit, seizure, tingling, tremors, weakness, other Endocrine: Denies: no symptoms, excessive sweating, flushing, intolerance to cold, intolerance to heat, increased hunger, increased thirst, increased urine, unexplained weight gain, unexplained weight loss, other Hematologic/Lymphatic: Denies: no symptoms, anemia, easy bleeding, easy bruising, other Allergies: Coded Allergies: NO KNOWN DRUG ALLERGIES (Unverified Allergy, Unknown, 07/11/15) Subjective no events, is on abx, low plts better Objective Last 24 Hour Vital Signs Date Time Temp Pulse Resp B/P (MAP) Pulse Ox O2 Delivery O2 Flow Rate FiO2 10/22/17 11:29 63 20 98 Nasal Cannula 2.0 28 10/22/17 11:03 64 18 96 Nasal Cannula 2.0 28 10/22/17 09:15 139/66 10/22/17 08:26 Nasal Cannula 2.0 28 10/22/17 08:26 95 Nasal Cannula 2.0 28 10/22/17 08:25 90 20 Nasal Cannula 2.0 28 10/22/17 08:00 62 10/22/17 08:00 97.9 69 20 139/66 96 Nasal Cannula 2.0 97.9 10/22/17 05:55 62 108/76 10/22/17 05:11 60 10/22/17 04:00 98.0 63 20 107/74 95 Nasal Cannula 2.0 98.0 10/22/17 00:00 97.5 60 20 113/71 97 Nasal Cannula 2.0 97.5 10/21/17 23:59 66 10/21/17 22:59 62 138/62 10/21/17 21:47 87 20 Nasal Cannula 2.0 28 10/21/17 21:46 93 Nasal Cannula 2.0 28 10/21/17 21:46 Nasal Cannula 2.0 28 10/21/17 20:00 97.9 60 19 105/62 98 Nasal Cannula 2.0 97.9 10/21/17 19:05 60 10/21/17 16:00 97.1 61 21 100/47 98 Nasal Cannula 2.0 97.1 10/21/17 16:00 60 10/21/17 14:12 60 115/56 10/21/17 12:00 97.8 60 21 115/56 98 Nasal Cannula 2.0 97.8 10/21/17 12:00 60 Intake and Output 10/21/17 10/22/17 19:00 07:00 Intake Total 350 ml Output Total 150 ml Balance 200 ml Intake Oral 350 ml Output Urine Total 150 ml # Voids 5 # Bowel Movements 1 1 Height (Feet): 5 Height (Inches): 3.00 Weight (Pounds): 160 General Appearance: no apparent distress EENT: TMs normal Neck: supple Cardiovascular: normal rate Respiratory/Chest: normal breath sounds Abdomen: non tender Extremities: non-tender Edema: 1+ Leg (L), 1+ Leg (R) Edema: mild edema Neurologic: alert Skin: warm/dry Jv Rodriguez MD October 22, 2017 11:46
[2017-10-22 12:00] VITALS: BP 120/64
--- NOTE | 2017-10-22 12:09 | Pulmonology Progress Note ---
Assessment/Plan Problems: (1) Encephalopathy acute (2) UTI (lower urinary tract infection) (3) H/O ETOH abuse (4) Depression (5) Seizure disorder (6) HTN (hypertension) (7) Generalized weakness (8) COPD (chronic obstructive pulmonary disease) (9) UTI (lower urinary tract infection) Assessment/Plan cxr and labs, BNP stat lasix times one Urine is resistant to Levofloxicne heart rate controlled, sinus now dc planning probably by tomorrow. d/w Dr kelley, Be blockers were stopped web content & social media manager to find the DPOA Subjective ROS Limited/Unobtainable: No Constitutional: Reports: no symptoms HEENT: Repors: no symptoms Allergies: Coded Allergies: NO KNOWN DRUG ALLERGIES (Unverified Allergy, Unknown, 07/11/15) Objective Last 24 Hour Vital Signs Date Time Temp Pulse Resp B/P (MAP) Pulse Ox O2 Delivery O2 Flow Rate FiO2 10/22/17 11:29 63 20 98 Nasal Cannula 2.0 28 10/22/17 11:03 64 18 96 Nasal Cannula 2.0 28 10/22/17 09:15 139/66 10/22/17 08:26 Nasal Cannula 2.0 28 10/22/17 08:26 95 Nasal Cannula 2.0 28 10/22/17 08:25 90 20 Nasal Cannula 2.0 28 10/22/17 08:00 62 10/22/17 08:00 97.9 69 20 139/66 96 Nasal Cannula 2.0 97.9 10/22/17 05:55 62 108/76 10/22/17 05:11 60 10/22/17 04:00 98.0 63 20 107/74 95 Nasal Cannula 2.0 98.0 10/22/17 00:00 97.5 60 20 113/71 97 Nasal Cannula 2.0 97.5 10/21/17 23:59 66 10/21/17 22:59 62 138/62 10/21/17 21:47 87 20 Nasal Cannula 2.0 28 10/21/17 21:46 93 Nasal Cannula 2.0 28 10/21/17 21:46 Nasal Cannula 2.0 28 10/21/17 20:00 97.9 60 19 105/62 98 Nasal Cannula 2.0 97.9 10/21/17 19:05 60 10/21/17 16:00 97.1 61 21 100/47 98 Nasal Cannula 2.0 97.1 10/21/17 16:00 60 10/21/17 14:12 60 115/56 Intake and Output 10/21/17 10/22/17 19:00 07:00 Intake Total 350 ml Output Total 150 ml Balance 200 ml Intake Oral 350 ml Output Urine Total 150 ml # Voids 5 # Bowel Movements 1 1 Objective coughing, wheezing HEENT: normocephalic, atraumatic Respiratory/Chest: chest wall non-tender, crackles/rales, expiratory wheezing, inspiratory wheezing Breasts: no masses Cardiovascular: normal peripheral pulses, normal rate Abdomen: normal bowel sounds, soft, non tender Genitourinary: normal external genitalia Skin: no rash Neurologic/Psychiatric: pharmacologist II-XII grossly normal Current Medications Medications (Trade) Dose Ordered Sig/Ibrahima Route PRN Reason Start Time Stop Time Status Last Admin Dose Admin Acetaminophen (Tylenol) 650 mg Q4H PRN ORAL T>100.5 10/19/17 12:00 11/15/17 19:59 Al Hydroxide/Mg Hydroxide (Mylanta II) 30 ml Q6H PRN ORAL dyspepsia 10/19/17 12:00 11/15/17 11:59 Albuterol/ Ipratropium (Albuterol/ Ipratropium) 3 ml Q4H PRN HHN Shortness of Breath 10/19/17 12:00 10/24/17 11:59 10/22/17 11:03 Allopurinol (Zyloprim) 100 mg DAILY ORAL 10/20/17 09:00 11/16/17 08:59 10/22/17 09:13 Apixaban (Eliquis) 5 mg BID ORAL 10/22/17 09:00 11/21/17 08:59 10/22/17 09:15 Cefdinir (Cefdinir) 300 mg Q12HR ORAL 10/20/17 16:00 10/27/17 15:59 10/22/17 09:14 Clotrimazole (Lotrimin) 1 applic THREE TIMES A DAY TOPIC 10/19/17 13:00 11/18/17 08:59 10/22/17 10:52 Diltiazem HCl (Cardizem) 60 mg EVERY 8 HOURS ORAL 10/21/17 14:00 11/20/17 13:59 10/22/17 05:55 Divalproex Sodium (Depakote) 250 mg Q12HR ORAL 10/19/17 21:00 11/15/17 20:59 10/22/17 09:14 Escitalopram Oxalate (Lexapro) 10 mg DAILY ORAL 10/20/17 09:00 11/16/17 15:59 10/22/17 09:14 Lisinopril (Zestril) 5 mg DAILY ORAL 10/20/17 09:00 11/16/17 08:59 10/22/17 09:15 Methylprednisolone Sodium Succinate (Solu-MEDROL) 40 mg DAILY IVP 10/21/17 09:00 11/18/17 13:59 10/22/17 09:13 Nitroglycerin (Ntg) 0.4 mg Q5MIN X 3 DOSES PRN SL Prn Chest Pain 10/19/17 11:30 11/18/17 11:29 Ondansetron HCl (Zofran) 4 mg Q6H PRN IVP Nausea & Vomiting 10/19/17 14:00 11/15/17 19:59 Polyethylene Glycol (Miralax) 17 gm DAILYPRN PRN ORAL Constipation 10/19/17 12:00 11/15/17 11:59 Promethazine HCl/ Codeine (Phenergan with Codeine) 5 ml Q4H PRN ORAL For Cough 10/19/17 12:00 11/15/17 19:59 10/22/17 10:59 Temazepam (Restoril) 15 mg HSPRN PRN ORAL Insomnia 10/19/17 21:00 10/23/17 20:59 Mendel Sierra MD October 22, 2017 12:09
--- NOTE | 2017-10-22 12:38 | General Progress Note ---
Assessment/Plan Status: stable Assessment/Plan mdd cognitive impairment lexapro 10mg qam provided ro Subjective Date patient seen: October 22, 2017 Neurologic/Psychiatric: Reports: anxiety, depressed, emotional problems Allergies: Coded Allergies: NO KNOWN DRUG ALLERGIES (Unverified Allergy, Unknown, 07/11/15) Subjective the pt is more confused however calm Objective Last 24 Hour Vital Signs Date Time Temp Pulse Resp B/P (MAP) Pulse Ox O2 Delivery O2 Flow Rate FiO2 10/22/17 11:29 63 20 98 Nasal Cannula 2.0 28 10/22/17 11:03 64 18 96 Nasal Cannula 2.0 28 10/22/17 09:15 139/66 10/22/17 08:26 Nasal Cannula 2.0 28 10/22/17 08:26 95 Nasal Cannula 2.0 28 10/22/17 08:25 90 20 Nasal Cannula 2.0 28 10/22/17 08:00 62 10/22/17 08:00 97.9 69 20 139/66 96 Nasal Cannula 2.0 97.9 10/22/17 05:55 62 108/76 10/22/17 05:11 60 10/22/17 04:00 98.0 63 20 107/74 95 Nasal Cannula 2.0 98.0 10/22/17 00:00 97.5 60 20 113/71 97 Nasal Cannula 2.0 97.5 10/21/17 23:59 66 10/21/17 22:59 62 138/62 10/21/17 21:47 87 20 Nasal Cannula 2.0 28 10/21/17 21:46 93 Nasal Cannula 2.0 28 10/21/17 21:46 Nasal Cannula 2.0 28 10/21/17 20:00 97.9 60 19 105/62 98 Nasal Cannula 2.0 97.9 10/21/17 19:05 60 10/21/17 16:00 97.1 61 21 100/47 98 Nasal Cannula 2.0 97.1 10/21/17 16:00 60 10/21/17 14:12 60 115/56 Intake and Output 10/21/17 10/22/17 19:00 07:00 Intake Total 350 ml Output Total 150 ml Balance 200 ml Intake Oral 350 ml Output Urine Total 150 ml # Voids 5 # Bowel Movements 1 1 Height (Feet): 5 Height (Inches): 3.00 Weight (Pounds): 160 General Appearance: no apparent distress, alert, confused Luiz Morrison M.D. October 22, 2017 12:37
--- NOTE | 2017-10-22 12:45 | Diagnostic Imaging Report ---
Indication: Dyspnea Comparison: 10/19/2017 A single view chest radiograph was obtained. Findings: There is a small left pleural effusion with blunting of the costophrenic angle. The heart is enlarged. Pulmonary vascularity is prominent. Bones are osteopenic. Aorta is calcified. IMPRESSION: Suspect mild interstitial edema. Suspect left pleural effusion.
[2017-10-22 15:19] LABS: BASOPHILS % (AUTO) 0.5 % (0.0-2.0); EOSINOPHILS % (AUTO) 0.1 % (0.0-3.0); HEMATOCRIT 38.2 % (37.0-47.0); HEMOGLOBIN 12.8 G/DL (12.0-16.0); LYMPHOCYTES % (AUTO) 12.4 % (20.0-45.0); MEAN CORPUSCULAR VOLUME 90 FL (80-99); MONOCYTES % (AUTO) 2.7 % (1.0-10.0); NEUTROPHILS % (AUTO) 84.2 % (45.0-75.0); PLATELET COUNT 119 K/UL (150-450); RED BLOOD COUNT 4.22 M/UL (4.20-5.40); RED CELL DISTRIBUTION WIDTH 14.4 % (11.6-14.8); WHITE BLOOD COUNT 6.4 K/UL (4.8-10.8)
[2017-10-22 15:46] LABS: ANION GAP 5 mmol/L (5-15); BLOOD UREA NITROGEN 8 mg/dL (7-18); CALCIUM 7.9 MG/DL (8.5-10.1); CARBON DIOXIDE 30 MMOL/L (21-32); CHLORIDE 99 MMOL/L (98-107); CREATININE 0.8 MG/DL (0.55-1.30); POTASSIUM 4.7 MMOL/L (3.5-5.1); SODIUM 134 MMOL/L (136-145)
[2017-10-22 15:59] LABS: ALANINE AMINOTRANSFERASE 10 U/L (12-78); ALBUMIN 2.3 G/DL (3.4-5.0); ALBUMIN/GLOBULIN RATIO 0.7 (1.0-2.7); ALKALINE PHOSPHATASE 48 U/L (46-116); ASPARTATE AMINO TRANSFERASE 14 U/L (15-37); BILIRUBIN,TOTAL 0.2 MG/DL (0.2-1.0)
[2017-10-22 16:00] VITALS: BP 124/54
[2017-10-22 20:00] VITALS: BP 120/76
--- NOTE | 2017-10-22 20:25 | Cardiology Progress Note ---
Assessment/Plan Assessment/Plan paf hs of leadless pacer implantation bronchospams copd trachy at time bronchosapsm off bb off hydralazien start on cardizem 60 tid increase to qid on eliquis Subjective Cardiovascular: Denies: chest pain, lightheadedness, palpitations Respiratory: Reports: shortness of breath Gastrointestinal/Abdominal: Denies: abdominal pain Genitourinary: Denies: burning Objective Last 24 Hour Vital Signs Date Time Temp Pulse Resp B/P (MAP) Pulse Ox O2 Delivery O2 Flow Rate FiO2 10/22/17 20:03 94 Nasal Cannula 3.0 32 10/22/17 20:03 Nasal Cannula 3.0 32 10/22/17 20:03 63 22 Nasal Cannula 3.0 32 10/22/17 16:00 97.0 62 20 124/54 95 Nasal Cannula 2.0 97.0 10/22/17 16:00 61 10/22/17 15:56 62 20 98 Nasal Cannula 2.0 28 10/22/17 15:28 60 18 96 Nasal Cannula 2.0 28 10/22/17 13:09 62 120/64 10/22/17 12:00 69 10/22/17 12:00 97.1 62 20 120/64 96 Nasal Cannula 2.0 97.1 10/22/17 11:29 63 20 98 Nasal Cannula 2.0 28 10/22/17 11:03 64 18 96 Nasal Cannula 2.0 28 10/22/17 09:15 139/66 10/22/17 08:26 Nasal Cannula 2.0 28 10/22/17 08:26 95 Nasal Cannula 2.0 28 10/22/17 08:25 90 20 Nasal Cannula 2.0 28 10/22/17 08:00 62 10/22/17 08:00 97.9 69 20 139/66 96 Nasal Cannula 2.0 97.9 10/22/17 05:55 62 108/76 10/22/17 05:11 60 10/22/17 04:00 98.0 63 20 107/74 95 Nasal Cannula 2.0 98.0 10/22/17 00:00 97.5 60 20 113/71 97 Nasal Cannula 2.0 97.5 10/21/17 23:59 66 10/21/17 22:59 62 138/62 10/21/17 21:47 87 20 Nasal Cannula 2.0 28 10/21/17 21:46 93 Nasal Cannula 2.0 28 10/21/17 21:46 Nasal Cannula 2.0 28 General Appearance: alert Cardiovascular: irregularly irregular Respiratory/Chest: lungs clear, normal breath sounds Abdomen: non tender, soft Extremities: trace edema Intake and Output 10/21/17 10/22/17 19:00 07:00 Intake Total 350 ml Output Total 150 ml Balance 200 ml Intake Oral 350 ml Output Urine Total 150 ml # Voids 5 # Bowel Movements 1 1 Laboratory Tests Test 10/22/17 14:40 White Blood Count 6.4 K/UL (4.8-10.8) Red Blood Count 4.22 M/UL (4.20-5.40) Hemoglobin 12.8 G/DL (12.0-16.0) Hematocrit 38.2 % (37.0-47.0) Mean Corpuscular Volume 90 FL (80-99) Mean Corpuscular Hemoglobin 30.4 PG (27.0-31.0) Mean Corpuscular Hemoglobin Concent 33.6 G/DL (32.0-36.0) Red Cell Distribution Width 14.4 % (11.6-14.8) Platelet Count 119 K/UL (150-450) L Mean Platelet Volume 8.2 FL (6.5-10.1) Neutrophils (%) (Auto) 84.2 % (45.0-75.0) H Lymphocytes (%) (Auto) 12.4 % (20.0-45.0) L Monocytes (%) (Auto) 2.7 % (1.0-10.0) Eosinophils (%) (Auto) 0.1 % (0.0-3.0) Basophils (%) (Auto) 0.5 % (0.0-2.0) Sodium Level 134 MMOL/L (136-145) L Potassium Level 4.7 MMOL/L (3.5-5.1) Chloride Level 99 MMOL/L (98-107) Carbon Dioxide Level 30 MMOL/L (21-32) Anion Gap 5 mmol/L (5-15) Blood Urea Nitrogen 8 mg/dL (7-18) Creatinine 0.8 MG/DL (0.55-1.30) Estimat Glomerular Filtration Rate mL/min (>60) Glucose Level 194 MG/DL (74-106) H Calcium Level 7.9 MG/DL (8.5-10.1) L Total Bilirubin 0.2 MG/DL (0.2-1.0) Aspartate Amino Transf (AST/SGOT) 14 U/L (15-37) L Alanine Aminotransferase (ALT/SGPT) 10 U/L (12-78) L Alkaline Phosphatase 48 U/L (46-116) Pro-B-Type Natriuretic Peptide 04846 pg/mL (0-125) H Total Protein 5.7 G/DL (6.4-8.2) L Albumin 2.3 G/DL (3.4-5.0) L Globulin 3.4 g/dL Albumin/Globulin Ratio 0.7 (1.0-2.7) L Akbar Reno MD October 22, 2017 20:25
[2017-10-23] VITALS: BP 119/84
[2017-10-23] MEDS: dilTIAZem HCl 60mg tab ORAL SCH ×4 (02:43→21:47)
[2017-10-23 04:00] VITALS: BP 120/72
--- NOTE | 2017-10-23 07:45 | General Progress Note ---
Assessment/Plan Assessment/Plan ASSESSMENT/RECS: 1. Thrombocytopenia, likely secondary to underlying alcohol abuse. Continue to closely monitor. US Mildly coarsened hepatic echogenicity and equivocal surface nodularity, if real could indicate early cirrhotic changes --> counts have been in the 100-150k range, closely monitor for improvement --> if any bleeding, could be platelet defect 2. DVT of the left leg, recanalized. Does not require any further anticoagulation. ==> no evidence of leg swelling 3. Urinary tract infection. Currently, is on broad-spectrum antibiotics. --> as per pcp and ID 4. History of alcohol abuse. 5. Seizure disorder. 6. Htn with systolic blood pressure greater than 140. Subjective Date patient seen: October 23, 2017 Constitutional: Denies: no symptoms, chills, diaphoresis, fever, malaise, weakness, other HEENT: Denies: no symptoms, eye pain, blurred vision, tearing, double vision, ear pain, ear discharge, nose pain, nose congestion, throat pain, throat swelling, mouth pain, mouth swelling, other Cardiovascular: Denies: no symptoms, chest pain, edema, irregular heart rate, lightheadedness, palpitations, syncope, other Respiratory: Denies: no symptoms, cough, orthopnea, shortness of breath, SOB with excertion, SOB at rest, sputum, stridor, wheezing, other Gastrointestinal/Abdominal: Denies: no symptoms, abdomen distended, abdominal pain, black stools, tarry stools, blood in stool, constipated, diarrhea, difficulty swallowing, nausea, poor appetite, poor fluid intake, rectal bleeding , vomiting, other Genitourinary: Denies: no symptoms, burning, discharge, frequency, flank pain, hematuria, incontinence, pain, urgency, other Neurologic/Psychiatric: Denies: no symptoms, anxiety, depressed, emotional problems, headache, numbness, paresthesia, pre-existing deficit, seizure, tingling, tremors, weakness, other Endocrine: Denies: no symptoms, excessive sweating, flushing, intolerance to cold, intolerance to heat, increased hunger, increased thirst, increased urine, unexplained weight gain, unexplained weight loss, other Hematologic/Lymphatic: Denies: no symptoms, anemia, easy bleeding, easy bruising, other Allergies: Coded Allergies: NO KNOWN DRUG ALLERGIES (Unverified Allergy, Unknown, 07/11/15) Subjective no events, is on abx, sleeping Objective Last 24 Hour Vital Signs Date Time Temp Pulse Resp B/P (MAP) Pulse Ox O2 Delivery O2 Flow Rate FiO2 10/23/17 04:00 97.6 66 20 120/72 96 Nasal Cannula 2.0 97.6 10/23/17 04:00 121 10/23/17 02:43 114 119/84 10/23/17 00:00 114 10/23/17 00:00 96.7 59 19 119/84 97 Nasal Cannula 2.0 96.7 10/22/17 20:03 94 Nasal Cannula 3.0 32 10/22/17 20:03 Nasal Cannula 3.0 32 10/22/17 20:03 63 22 Nasal Cannula 3.0 32 10/22/17 20:00 97.2 63 22 120/76 95 Nasal Cannula 2.0 97.2 10/22/17 20:00 112 10/22/17 16:00 97.0 62 20 124/54 95 Nasal Cannula 2.0 97.0 10/22/17 16:00 61 10/22/17 15:56 62 20 98 Nasal Cannula 2.0 28 10/22/17 15:28 60 18 96 Nasal Cannula 2.0 28 10/22/17 13:09 62 120/64 10/22/17 12:00 69 10/22/17 12:00 97.1 62 20 120/64 96 Nasal Cannula 2.0 97.1 10/22/17 11:29 63 20 98 Nasal Cannula 2.0 28 10/22/17 11:03 64 18 96 Nasal Cannula 2.0 28 10/22/17 09:15 139/66 10/22/17 08:26 Nasal Cannula 2.0 28 10/22/17 08:26 95 Nasal Cannula 2.0 28 10/22/17 08:25 90 20 Nasal Cannula 2.0 28 10/22/17 08:00 62 10/22/17 08:00 97.9 69 20 139/66 96 Nasal Cannula 2.0 97.9 Intake and Output 10/22/17 10/23/17 19:00 07:00 Intake Total 950 ml Balance 950 ml Intake Oral 950 ml # Voids 5 3 # Bowel Movements 1 Laboratory Tests 10/22/17 14:40: White Blood Count 6.4, Red Blood Count 4.22, Hemoglobin 12.8, Hematocrit 38.2, Mean Corpuscular Volume 90, Mean Corpuscular Hemoglobin 30.4, Mean Corpuscular Hemoglobin Concent 33.6, Red Cell Distribution Width 14.4, Platelet Count 119L, Mean Platelet Volume 8.2, Neutrophils (%) (Auto) 84.2H, Lymphocytes (%) (Auto) 12.4L, Monocytes (%) (Auto) 2.7, Eosinophils (%) (Auto) 0.1, Basophils (%) (Auto ) 0.5, Sodium Level 134L, Potassium Level 4.7, Chloride Level 99, Carbon Dioxide Level 30, Anion Gap 5, Blood Urea Nitrogen 8, Creatinine 0.8, Estimat Glomerular Filtration Rate , Glucose Level 194H, Calcium Level 7.9L, Total Bilirubin 0.2, Aspartate Amino Transf (AST/SGOT) 14L, Alanine Aminotransferase ( ALT/SGPT) 10L, Alkaline Phosphatase 48, Pro-B-Type Natriuretic Peptide 09661L, Total Protein 5.7L, Albumin 2.3L, Globulin 3.4, Albumin/Globulin Ratio 0.7L Height (Feet): 5 Height (Inches): 3.00 Weight (Pounds): 160 General Appearance: alert EENT: TMs normal Neck: supple Cardiovascular: regular rhythm Respiratory/Chest: lungs clear Abdomen: soft Extremities: non-tender Edema: 1+ Leg (L), 1+ Leg (R) Edema: mild edema Neurologic: no motor/sensory deficits Skin: warm/dry Jv Rodriguez MD October 23, 2017 07:45
[2017-10-23 08:00] VITALS: BP 125/57
[2017-10-23] MEDS: Cefdinir 300mg cap ORAL SCH ×2 (09:18→21:47)
[2017-10-23] MEDS: Eliquis 2.5mg tablet ORAL SCH ×2 (09:18→17:36)
[2017-10-23] MEDS: Solu-MEDROL 40mg Inj IVP SCH (09:19)
[2017-10-23] MEDS: Lisinopril 2.5mg tab ORAL SCH (09:19)
[2017-10-23] MEDS: Allopurinol 100mg Tab ORAL SCH (09:19)
[2017-10-23 12:00] VITALS: BP 140/62
--- NOTE | 2017-10-23 12:22 | Infectious Diseases Prog Note ---
Assessment/Plan Assessment/Plan ASSESSMENT: The patient is a 76-year-old female with Bronchitis, possible pneumonia. Chest x-ray: Blunting of the left costophrenic angle, unchanged compared to the prior exam, which may suggest a mild left pleural effusion versus pleural thickening. Unchanged appearance of mildly increased interstitial markings. This may be related to chronic senescent changes, however differential diagnosis may also include mild pulmonary vascular congestion or mild interstitial pneumonitis. -sp cx ordered, not collected. -Bcx neg Positive urine culture > 100K P.mirabilis (S Ceftriaxone)> UTI ( +urinary hesitancy, no dysuria or frequency ) -u/a wbc tntc, nit +, leuk +3 Afebrile. normal white blood cells. s/p Abd US: Cholelithiasis. Negative for dilated ducts. Mildly coarsened hepatic echogenicity and equivocal surface nodularity, if real could indicate early cirrhotic changes. Bilateral nonobstructive intrarenal calculi. Right renal cyst incidentally noted History of coag-negative Staph bacteremia (in July,), s/p Rx 2 weeks -JIMY tickened MV, no vegetations MRSA colonization Hypertension. COPD. History of atrial flutter. CAD status post stent. History of alcohol abuse. History of bilateral hip replacement. Seizure disorder. PLAN: cont PO Cefdinir #4/5 for UTI (abx d#7 for bronchitis/possible PNA) -10/19 SP Levaquin #3 Monitor CBC. Monitor BMP. Monitor chest x-ray. Discharge planning Subjective Allergies: Coded Allergies: NO KNOWN DRUG ALLERGIES (Unverified Allergy, Unknown, 07/11/15) Subjective afebrile at 3L NC no leukocytosis Objective Vital Signs Last 24 Hour Vital Signs Date Time Temp Pulse Resp B/P (MAP) Pulse Ox O2 Delivery O2 Flow Rate FiO2 10/23/17 09:38 69 22 Nasal Cannula 3.0 32 10/23/17 09:38 Nasal Cannula 3.0 32 10/23/17 09:38 95 Nasal Cannula 3.0 32 10/23/17 09:20 111 120/72 10/23/17 09:19 120/72 10/23/17 08:00 97.5 60 20 125/57 96 Nasal Cannula 2.0 97.5 10/23/17 04:00 97.6 66 20 120/72 96 Nasal Cannula 2.0 97.6 10/23/17 04:00 121 10/23/17 02:43 114 119/84 10/23/17 00:00 114 10/23/17 00:00 96.7 59 19 119/84 97 Nasal Cannula 2.0 96.7 10/22/17 20:03 94 Nasal Cannula 3.0 32 10/22/17 20:03 Nasal Cannula 3.0 32 10/22/17 20:03 63 22 Nasal Cannula 3.0 32 10/22/17 20:00 97.2 63 22 120/76 95 Nasal Cannula 2.0 97.2 10/22/17 20:00 112 10/22/17 16:00 97.0 62 20 124/54 95 Nasal Cannula 2.0 97.0 10/22/17 16:00 61 10/22/17 15:56 62 20 98 Nasal Cannula 2.0 28 10/22/17 15:28 60 18 96 Nasal Cannula 2.0 28 10/22/17 13:09 62 120/64 Height (Feet): 5 Height (Inches): 3.00 Weight (Pounds): 160 Objective General Appearance: no acute distress HEENT: normocephalic, atraumatic, anicteric, mucous membranes moist Respiratory/Chest: no respiratory distress, no accessory muscle use, decreased breath sounds, few3 scattered exp wheezes Cardiovascular: normal rate Abdomen: normal bowel sounds, soft, non tender Extremities: trace edema BLE Neurologic/Psychiatric: w/chair bound , alert, oriented x 3, responsive, normal mood/affect Musculoskeletal: atrophy - BLE Laboratory Tests Test 10/22/17 14:40 White Blood Count 6.4 K/UL (4.8-10.8) Red Blood Count 4.22 M/UL (4.20-5.40) Hemoglobin 12.8 G/DL (12.0-16.0) Hematocrit 38.2 % (37.0-47.0) Mean Corpuscular Volume 90 FL (80-99) Mean Corpuscular Hemoglobin 30.4 PG (27.0-31.0) Mean Corpuscular Hemoglobin Concent 33.6 G/DL (32.0-36.0) Red Cell Distribution Width 14.4 % (11.6-14.8) Platelet Count 119 K/UL (150-450) L Mean Platelet Volume 8.2 FL (6.5-10.1) Neutrophils (%) (Auto) 84.2 % (45.0-75.0) H Lymphocytes (%) (Auto) 12.4 % (20.0-45.0) L Monocytes (%) (Auto) 2.7 % (1.0-10.0) Eosinophils (%) (Auto) 0.1 % (0.0-3.0) Basophils (%) (Auto) 0.5 % (0.0-2.0) Sodium Level 134 MMOL/L (136-145) L Potassium Level 4.7 MMOL/L (3.5-5.1) Chloride Level 99 MMOL/L (98-107) Carbon Dioxide Level 30 MMOL/L (21-32) Anion Gap 5 mmol/L (5-15) Blood Urea Nitrogen 8 mg/dL (7-18) Creatinine 0.8 MG/DL (0.55-1.30) Estimat Glomerular Filtration Rate mL/min (>60) Glucose Level 194 MG/DL (74-106) H Calcium Level 7.9 MG/DL (8.5-10.1) L Total Bilirubin 0.2 MG/DL (0.2-1.0) Aspartate Amino Transf (AST/SGOT) 14 U/L (15-37) L Alanine Aminotransferase (ALT/SGPT) 10 U/L (12-78) L Alkaline Phosphatase 48 U/L (46-116) Pro-B-Type Natriuretic Peptide 75337 pg/mL (0-125) H Total Protein 5.7 G/DL (6.4-8.2) L Albumin 2.3 G/DL (3.4-5.0) L Globulin 3.4 g/dL Albumin/Globulin Ratio 0.7 (1.0-2.7) L Current Medications Medications (Trade) Dose Ordered Sig/Ibrahima Route PRN Reason Start Time Stop Time Status Last Admin Dose Admin Acetaminophen (Tylenol) 650 mg Q4H PRN ORAL T>100.5 10/19/17 12:00 11/15/17 19:59 Al Hydroxide/Mg Hydroxide (Mylanta II) 30 ml Q6H PRN ORAL dyspepsia 10/19/17 12:00 11/15/17 11:59 Albuterol/ Ipratropium (Albuterol/ Ipratropium) 3 ml Q4H PRN HHN Shortness of Breath 10/19/17 12:00 10/24/17 11:59 10/22/17 15:28 Allopurinol (Zyloprim) 100 mg DAILY ORAL 10/20/17 09:00 11/16/17 08:59 10/23/17 09:19 Apixaban (Eliquis) 5 mg BID ORAL 10/22/17 09:00 11/21/17 08:59 10/23/17 09:18 Cefdinir (Cefdinir) 300 mg Q12HR ORAL 10/20/17 16:00 10/27/17 15:59 10/23/17 09:18 Clotrimazole (Lotrimin) 1 applic THREE TIMES A DAY TOPIC 10/19/17 13:00 11/18/17 08:59 10/23/17 09:20 Diltiazem HCl (Cardizem) 60 mg Q6H ORAL 10/23/17 02:00 11/22/17 01:59 10/23/17 09:20 Divalproex Sodium (Depakote) 250 mg Q12HR ORAL 10/19/17 21:00 11/15/17 20:59 10/23/17 09:19 Escitalopram Oxalate (Lexapro) 10 mg DAILY ORAL 10/20/17 09:00 11/16/17 15:59 10/23/17 09:18 Lisinopril (Zestril) 5 mg DAILY ORAL 10/20/17 09:00 11/16/17 08:59 10/23/17 09:19 Methylprednisolone Sodium Succinate (Solu-MEDROL) 40 mg DAILY IVP 10/21/17 09:00 11/18/17 13:59 10/23/17 09:19 Nitroglycerin (Ntg) 0.4 mg Q5MIN X 3 DOSES PRN SL Prn Chest Pain 10/19/17 11:30 11/18/17 11:29 Ondansetron HCl (Zofran) 4 mg Q6H PRN IVP Nausea & Vomiting 10/19/17 14:00 11/15/17 19:59 Polyethylene Glycol (Miralax) 17 gm DAILYPRN PRN ORAL Constipation 10/19/17 12:00 11/15/17 11:59 Promethazine HCl/ Codeine (Phenergan with Codeine) 5 ml Q4H PRN ORAL For Cough 10/22/17 12:30 11/21/17 12:29 10/22/17 15:58 Temazepam (Restoril) 15 mg HSPRN PRN ORAL Insomnia 10/19/17 21:00 10/23/17 20:59 10/22/17 22:08 Danica Nayak M.D. October 23, 2017 12:22
--- NOTE | 2017-10-23 12:38 | Pulmonology Progress Note ---
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 Subjective ROS Limited/Unobtainable: No Constitutional: Reports: no symptoms HEENT: Repors: no symptoms Respiratory: Reports: no symptoms Allergies: Coded Allergies: NO KNOWN DRUG ALLERGIES (Unverified Allergy, Unknown, 07/11/15) Objective Last 24 Hour Vital Signs Date Time Temp Pulse Resp B/P (MAP) Pulse Ox O2 Delivery O2 Flow Rate FiO2 10/23/17 09:38 69 22 Nasal Cannula 3.0 32 10/23/17 09:38 Nasal Cannula 3.0 32 10/23/17 09:38 95 Nasal Cannula 3.0 32 10/23/17 09:20 111 120/72 10/23/17 09:19 120/72 10/23/17 08:00 97.5 60 20 125/57 96 Nasal Cannula 2.0 97.5 10/23/17 04:00 97.6 66 20 120/72 96 Nasal Cannula 2.0 97.6 10/23/17 04:00 121 10/23/17 02:43 114 119/84 10/23/17 00:00 114 10/23/17 00:00 96.7 59 19 119/84 97 Nasal Cannula 2.0 96.7 10/22/17 20:03 94 Nasal Cannula 3.0 32 10/22/17 20:03 Nasal Cannula 3.0 32 10/22/17 20:03 63 22 Nasal Cannula 3.0 32 10/22/17 20:00 97.2 63 22 120/76 95 Nasal Cannula 2.0 97.2 10/22/17 20:00 112 10/22/17 16:00 97.0 62 20 124/54 95 Nasal Cannula 2.0 97.0 10/22/17 16:00 61 10/22/17 15:56 62 20 98 Nasal Cannula 2.0 28 10/22/17 15:28 60 18 96 Nasal Cannula 2.0 28 10/22/17 13:09 62 120/64 Intake and Output 10/22/17 10/23/17 19:00 07:00 Intake Total 950 ml Balance 950 ml Intake Oral 950 ml # Voids 5 3 # Bowel Movements 1 Objective less coughing, wheezing General Appearance: WD/WN HEENT: normocephalic, atraumatic Respiratory/Chest: chest wall non-tender, wheezing Breasts: no masses Cardiovascular: normal peripheral pulses Abdomen: normal bowel sounds, soft, non tender Extremities: no cyanosis Skin: no rash Laboratory Tests 10/22/17 14:40: White Blood Count 6.4, Red Blood Count 4.22, Hemoglobin 12.8, Hematocrit 38.2, Mean Corpuscular Volume 90, Mean Corpuscular Hemoglobin 30.4, Mean Corpuscular Hemoglobin Concent 33.6, Red Cell Distribution Width 14.4, Platelet Count 119L, Mean Platelet Volume 8.2, Neutrophils (%) (Auto) 84.2H, Lymphocytes (%) (Auto) 12.4L, Monocytes (%) (Auto) 2.7, Eosinophils (%) (Auto) 0.1, Basophils (%) (Auto ) 0.5, Sodium Level 134L, Potassium Level 4.7, Chloride Level 99, Carbon Dioxide Level 30, Anion Gap 5, Blood Urea Nitrogen 8, Creatinine 0.8, Estimat Glomerular Filtration Rate , Glucose Level 194H, Calcium Level 7.9L, Total Bilirubin 0.2, Aspartate Amino Transf (AST/SGOT) 14L, Alanine Aminotransferase ( ALT/SGPT) 10L, Alkaline Phosphatase 48, Pro-B-Type Natriuretic Peptide 00378O, Total Protein 5.7L, Albumin 2.3L, Globulin 3.4, Albumin/Globulin Ratio 0.7L Current Medications Medications (Trade) Dose Ordered Sig/Ibrahima Route PRN Reason Start Time Stop Time Status Last Admin Dose Admin Acetaminophen (Tylenol) 650 mg Q4H PRN ORAL T>100.5 10/19/17 12:00 11/15/17 19:59 Al Hydroxide/Mg Hydroxide (Mylanta II) 30 ml Q6H PRN ORAL dyspepsia 10/19/17 12:00 11/15/17 11:59 Albuterol/ Ipratropium (Albuterol/ Ipratropium) 3 ml Q4H PRN HHN Shortness of Breath 10/19/17 12:00 10/24/17 11:59 10/22/17 15:28 Allopurinol (Zyloprim) 100 mg DAILY ORAL 10/20/17 09:00 11/16/17 08:59 10/23/17 09:19 Apixaban (Eliquis) 5 mg BID ORAL 10/22/17 09:00 11/21/17 08:59 10/23/17 09:18 Cefdinir (Cefdinir) 300 mg Q12HR ORAL 10/20/17 16:00 10/27/17 15:59 10/23/17 09:18 Clotrimazole (Lotrimin) 1 applic THREE TIMES A DAY TOPIC 10/19/17 13:00 11/18/17 08:59 10/23/17 09:20 Diltiazem HCl (Cardizem) 60 mg Q6H ORAL 10/23/17 02:00 11/22/17 01:59 10/23/17 09:20 Divalproex Sodium (Depakote) 250 mg Q12HR ORAL 10/19/17 21:00 11/15/17 20:59 10/23/17 09:19 Escitalopram Oxalate (Lexapro) 10 mg DAILY ORAL 10/20/17 09:00 11/16/17 15:59 10/23/17 09:18 Lisinopril (Zestril) 5 mg DAILY ORAL 10/20/17 09:00 11/16/17 08:59 10/23/17 09:19 Methylprednisolone Sodium Succinate (Solu-MEDROL) 40 mg DAILY IVP 10/21/17 09:00 11/18/17 13:59 10/23/17 09:19 Nitroglycerin (Ntg) 0.4 mg Q5MIN X 3 DOSES PRN SL Prn Chest Pain 10/19/17 11:30 11/18/17 11:29 Ondansetron HCl (Zofran) 4 mg Q6H PRN IVP Nausea & Vomiting 10/19/17 14:00 11/15/17 19:59 Polyethylene Glycol (Miralax) 17 gm DAILYPRN PRN ORAL Constipation 10/19/17 12:00 11/15/17 11:59 Promethazine HCl/ Codeine (Phenergan with Codeine) 5 ml Q4H PRN ORAL For Cough 10/22/17 12:30 11/21/17 12:29 10/22/17 15:58 Temazepam (Restoril) 15 mg HSPRN PRN ORAL Insomnia 10/19/17 21:00 10/23/17 20:59 10/22/17 22:08 Mendel Sierra MD October 23, 2017 12:38
--- NOTE | 2017-10-23 15:07 | Cardiology Progress Note ---
Assessment/Plan Assessment/Plan paf hs of leadless pacer implantation bronchospams copd trachy at time still with bronchosapsm but less than yest is off bb off hydralazien on cardizem 60 qid hr is paced on eliquis Subjective Cardiovascular: Denies: chest pain Respiratory: Reports: cough, shortness of breath, sputum, wheezing Gastrointestinal/Abdominal: Denies: abdominal pain Genitourinary: Denies: burning Objective Last 24 Hour Vital Signs Date Time Temp Pulse Resp B/P (MAP) Pulse Ox O2 Delivery O2 Flow Rate FiO2 10/23/17 14:53 69 120/72 10/23/17 09:38 69 22 Nasal Cannula 3.0 32 10/23/17 09:38 Nasal Cannula 3.0 32 10/23/17 09:38 95 Nasal Cannula 3.0 32 10/23/17 09:20 111 120/72 10/23/17 09:19 120/72 10/23/17 08:00 97.5 60 20 125/57 96 Nasal Cannula 2.0 97.5 10/23/17 04:00 97.6 66 20 120/72 96 Nasal Cannula 2.0 97.6 10/23/17 04:00 121 10/23/17 02:43 114 119/84 10/23/17 00:00 114 10/23/17 00:00 96.7 59 19 119/84 97 Nasal Cannula 2.0 96.7 10/22/17 20:03 94 Nasal Cannula 3.0 32 10/22/17 20:03 Nasal Cannula 3.0 32 10/22/17 20:03 63 22 Nasal Cannula 3.0 32 10/22/17 20:00 97.2 63 22 120/76 95 Nasal Cannula 2.0 97.2 10/22/17 20:00 112 10/22/17 16:00 97.0 62 20 124/54 95 Nasal Cannula 2.0 97.0 10/22/17 16:00 61 10/22/17 15:56 62 20 98 Nasal Cannula 2.0 28 10/22/17 15:28 60 18 96 Nasal Cannula 2.0 28 General Appearance: no apparent distress, alert Neck: no JVD Cardiovascular: regular rhythm Respiratory/Chest: expiratory wheezing Abdomen: normal bowel sounds, non tender, soft Extremities: trace edema Intake and Output 10/22/17 10/23/17 19:00 07:00 Intake Total 950 ml Balance 950 ml Intake Oral 950 ml # Voids 5 3 # Bowel Movements 1 Akbar Reno MD October 23, 2017 15:07
[2017-10-23 16:00] VITALS: BP 134/56
[2017-10-23 20:00] VITALS: BP 128/55
[2017-10-23] MEDS: Promethazine/Codeine 5ml UD ORAL PRN (21:48)
[2017-10-24] VITALS: BP 118/67
[2017-10-24] MEDS: Promethazine/Codeine 5ml UD ORAL PRN (01:53)
[2017-10-24] MEDS: dilTIAZem HCl 60mg tab ORAL SCH ×4 (01:53→21:08)
[2017-10-24 04:00] VITALS: BP 109/56
--- NOTE | 2017-10-24 07:24 | General Progress Note ---
Assessment/Plan Assessment/Plan #. Thrombocytopenia, likely secondary to underlying alcohol abuse. Continue to closely monitor. US Mildly coarsened hepatic echogenicity and equivocal surface nodularity, if real could indicate early cirrhotic changes ---> counts have been in the 100-150k range, closely monitor for improvement ---> if any bleeding, could be platelet defect #. DVT of the left leg, recanalized. Does not require any further anticoagulation. ---> no evidence of leg swelling #. Urinary tract infection. Currently, is on broad-spectrum antibiotics. --> as per pcp and ID #. History of alcohol abuse. #. Seizure disorder. #. HTN - with systolic blood pressure greater than 140. Subjective Date patient seen: October 24, 2017 Constitutional: Denies: no symptoms, chills, diaphoresis, fever, malaise, weakness, other HEENT: Denies: no symptoms, eye pain, blurred vision, tearing, double vision, ear pain, ear discharge, nose pain, nose congestion, throat pain, throat swelling, mouth pain, mouth swelling, other Cardiovascular: Denies: no symptoms, chest pain, edema, irregular heart rate, lightheadedness, palpitations, syncope, other Respiratory: Denies: no symptoms, cough, orthopnea, shortness of breath, SOB with excertion, SOB at rest, sputum, stridor, wheezing, other Gastrointestinal/Abdominal: Denies: no symptoms, abdomen distended, abdominal pain, black stools, tarry stools, blood in stool, constipated, diarrhea, difficulty swallowing, nausea, poor appetite, poor fluid intake, rectal bleeding , vomiting, other Genitourinary: Denies: no symptoms, burning, discharge, frequency, flank pain, hematuria, incontinence, pain, urgency, other Neurologic/Psychiatric: Denies: no symptoms, anxiety, depressed, emotional problems, headache, numbness, paresthesia, pre-existing deficit, seizure, tingling, tremors, weakness, other Endocrine: Denies: no symptoms, excessive sweating, flushing, intolerance to cold, intolerance to heat, increased hunger, increased thirst, increased urine, unexplained weight gain, unexplained weight loss, other Allergies: Coded Allergies: NO KNOWN DRUG ALLERGIES (Unverified Allergy, Unknown, 07/11/15) Subjective no events, is on abx, sleeping Objective Last 24 Hour Vital Signs Date Time Temp Pulse Resp B/P (MAP) Pulse Ox O2 Delivery O2 Flow Rate FiO2 10/24/17 04:00 60 10/24/17 04:00 97.7 61 20 109/56 98 Nasal Cannula 2.0 97.7 10/24/17 01:53 61 118/67 10/24/17 00:00 97.7 62 20 118/67 98 Nasal Cannula 2.0 97.7 10/24/17 00:00 61 10/23/17 21:47 60 128/55 10/23/17 20:00 98.8 60 20 128/55 96 Nasal Cannula 2.0 98.8 60 10/23/17 20:00 60 10/23/17 19:53 60 18 Nasal Cannula 2.0 28 10/23/17 19:53 Nasal Cannula 2.0 28 10/23/17 19:53 96 Nasal Cannula 2.0 28 10/23/17 16:00 97.0 60 20 134/56 96 Nasal Cannula 2.0 97.0 10/23/17 16:00 60 10/23/17 14:53 69 120/72 10/23/17 12:00 60 10/23/17 12:00 97.2 64 20 140/62 97 Nasal Cannula 2.0 97.2 10/23/17 09:38 69 22 Nasal Cannula 3.0 32 10/23/17 09:38 Nasal Cannula 3.0 32 10/23/17 09:38 95 Nasal Cannula 3.0 32 10/23/17 09:20 111 120/72 10/23/17 09:19 120/72 10/23/17 08:00 61 10/23/17 08:00 97.5 60 20 125/57 96 Nasal Cannula 2.0 97.5 Intake and Output 10/23/17 10/24/17 19:00 07:00 Intake Total 360 ml 800 ml Output Total 1300 ml Balance -940 ml 800 ml Intake Oral 360 ml 800 ml Output Urine Total 1300 ml # Voids 1 3 Height (Feet): 5 Height (Inches): 3.00 Weight (Pounds): 160 General Appearance: no apparent distress EENT: TMs normal Neck: supple Cardiovascular: regular rhythm Respiratory/Chest: lungs clear Abdomen: soft Extremities: non-tender Edema: 1+ Leg (L), 1+ Leg (R) Neurologic: alert Skin: cyanotic KleynbergJv MD October 24, 2017 07:24
[2017-10-24 08:00] VITALS: BP 130/67
[2017-10-24] MEDS: Lisinopril 2.5mg tab ORAL SCH (08:48)
[2017-10-24] MEDS: Allopurinol 100mg Tab ORAL SCH (08:48)
[2017-10-24] MEDS: Cefdinir 300mg cap ORAL SCH (08:48)
[2017-10-24] MEDS: Eliquis 2.5mg tablet ORAL SCH ×2 (08:49→17:56)
[2017-10-24] MEDS: Solu-MEDROL 40mg Inj IVP SCH (08:50)
[2017-10-24 08:54] LABS: BASOPHILS % (AUTO) 0.5 % (0.0-2.0); EOSINOPHILS % (AUTO) 0.2 % (0.0-3.0); HEMATOCRIT 39.3 % (37.0-47.0); LYMPHOCYTES % (AUTO) 20.2 % (20.0-45.0); MEAN CORPUSCULAR VOLUME 92 FL (80-99); MONOCYTES % (AUTO) 4.3 % (1.0-10.0); NEUTROPHILS % (AUTO) 74.8 % (45.0-75.0); PLATELET COUNT 127 K/UL (150-450); RED BLOOD COUNT 4.29 M/UL (4.20-5.40); RED CELL DISTRIBUTION WIDTH 14.6 % (11.6-14.8); WHITE BLOOD COUNT 5.1 K/UL (4.8-10.8)
[2017-10-24 09:24] LABS: ALANINE AMINOTRANSFERASE 19 U/L (12-78); ALBUMIN 2.5 G/DL (3.4-5.0); ALBUMIN/GLOBULIN RATIO 0.7 (1.0-2.7); ALKALINE PHOSPHATASE 46 U/L (46-116); ANION GAP 5 mmol/L (5-15); ASPARTATE AMINO TRANSFERASE 17 U/L (15-37); BILIRUBIN,TOTAL 0.3 MG/DL (0.2-1.0); BLOOD UREA NITROGEN 6 mg/dL (7-18); CALCIUM 8.3 MG/DL (8.5-10.1); CARBON DIOXIDE 34 MMOL/L (21-32); CHLORIDE 97 MMOL/L (98-107); CREATININE 0.7 MG/DL (0.55-1.30); POTASSIUM 4.2 MMOL/L (3.5-5.1); SODIUM 136 MMOL/L (136-145)
--- NOTE | 2017-10-24 11:04 | Infectious Diseases Prog Note ---
Assessment/Plan Assessment/Plan ASSESSMENT: The patient is a 76-year-old female with Bronchitis, possible pneumonia. Chest x-ray: Blunting of the left costophrenic angle, unchanged compared to the prior exam, which may suggest a mild left pleural effusion versus pleural thickening. Unchanged appearance of mildly increased interstitial markings. This may be related to chronic senescent changes, however differential diagnosis may also include mild pulmonary vascular congestion or mild interstitial pneumonitis. -sp cx ordered, not collected. -Bcx neg Positive urine culture > 100K P.mirabilis (S Ceftriaxone)> UTI ( +urinary hesitancy, no dysuria or frequency ) -u/a wbc tntc, nit +, leuk +3 Afebrile. normal white blood cells. s/p Abd US: Cholelithiasis. Negative for dilated ducts. Mildly coarsened hepatic echogenicity and equivocal surface nodularity, if real could indicate early cirrhotic changes. Bilateral nonobstructive intrarenal calculi. Right renal cyst incidentally noted History of coag-negative Staph bacteremia (in July,), s/p Rx 2 weeks -JIMY tickened MV, no vegetations MRSA colonization Hypertension. COPD. History of atrial flutter. CAD status post stent. History of alcohol abuse. History of bilateral hip replacement. Seizure disorder. PLAN: cont PO Cefdinir #5/5 for UTI (abx d#8 for bronchitis/possible PNA) -10/19 SP Levaquin #3 Monitor CBC. Monitor BMP. Monitor chest x-ray. Discharge planning Subjective Allergies: Coded Allergies: NO KNOWN DRUG ALLERGIES (Unverified Allergy, Unknown, 07/11/15) Subjective afebrile at 3L NC no leukocytosis Objective Vital Signs Last 24 Hour Vital Signs Date Time Temp Pulse Resp B/P (MAP) Pulse Ox O2 Delivery O2 Flow Rate FiO2 10/24/17 09:39 Nasal Cannula 2.0 32 10/24/17 09:38 96 Nasal Cannula 2.0 28 10/24/17 09:37 64 20 Nasal Cannula 2.0 28 10/24/17 08:48 65 130/67 10/24/17 08:48 130/67 10/24/17 04:00 60 10/24/17 04:00 97.7 61 20 109/56 98 Nasal Cannula 2.0 97.7 10/24/17 01:53 61 118/67 10/24/17 00:00 97.7 62 20 118/67 98 Nasal Cannula 2.0 97.7 10/24/17 00:00 61 10/23/17 21:47 60 128/55 10/23/17 20:00 98.8 60 20 128/55 96 Nasal Cannula 2.0 98.8 60 10/23/17 20:00 60 10/23/17 19:53 60 18 Nasal Cannula 2.0 28 10/23/17 19:53 Nasal Cannula 2.0 28 10/23/17 19:53 96 Nasal Cannula 2.0 28 10/23/17 16:00 97.0 60 20 134/56 96 Nasal Cannula 2.0 97.0 10/23/17 16:00 60 10/23/17 14:53 69 120/72 10/23/17 12:00 60 10/23/17 12:00 97.2 64 20 140/62 97 Nasal Cannula 2.0 97.2 Height (Feet): 5 Height (Inches): 3.00 Weight (Pounds): 170 Objective General Appearance: no acute distress HEENT: normocephalic, atraumatic, anicteric, mucous membranes moist Respiratory/Chest: no respiratory distress, no accessory muscle use, decreased breath sounds, few3 scattered exp wheezes Cardiovascular: normal rate Abdomen: normal bowel sounds, soft, non tender Extremities: trace edema BLE Neurologic/Psychiatric: w/chair bound , alert, oriented x 3, responsive, normal mood/affect Musculoskeletal: atrophy - BLE Laboratory Tests Test 10/24/17 08:00 White Blood Count 5.1 K/UL (4.8-10.8) Red Blood Count 4.29 M/UL (4.20-5.40) Hemoglobin 13.0 G/DL (12.0-16.0) Hematocrit 39.3 % (37.0-47.0) Mean Corpuscular Volume 92 FL (80-99) Mean Corpuscular Hemoglobin 30.2 PG (27.0-31.0) Mean Corpuscular Hemoglobin Concent 33.0 G/DL (32.0-36.0) Red Cell Distribution Width 14.6 % (11.6-14.8) Platelet Count 127 K/UL (150-450) L Mean Platelet Volume 8.9 FL (6.5-10.1) Neutrophils (%) (Auto) 74.8 % (45.0-75.0) Lymphocytes (%) (Auto) 20.2 % (20.0-45.0) Monocytes (%) (Auto) 4.3 % (1.0-10.0) Eosinophils (%) (Auto) 0.2 % (0.0-3.0) Basophils (%) (Auto) 0.5 % (0.0-2.0) Sodium Level 136 MMOL/L (136-145) Potassium Level 4.2 MMOL/L (3.5-5.1) Chloride Level 97 MMOL/L (98-107) L Carbon Dioxide Level 34 MMOL/L (21-32) H Anion Gap 5 mmol/L (5-15) Blood Urea Nitrogen 6 mg/dL (7-18) L Creatinine 0.7 MG/DL (0.55-1.30) Estimat Glomerular Filtration Rate mL/min (>60) Glucose Level 157 MG/DL (74-106) H Calcium Level 8.3 MG/DL (8.5-10.1) L Total Bilirubin 0.3 MG/DL (0.2-1.0) Aspartate Amino Transf (AST/SGOT) 17 U/L (15-37) Alanine Aminotransferase (ALT/SGPT) 19 U/L (12-78) Alkaline Phosphatase 46 U/L (46-116) Pro-B-Type Natriuretic Peptide 66204 pg/mL (0-125) H Total Protein 6.1 G/DL (6.4-8.2) L Albumin 2.5 G/DL (3.4-5.0) L Globulin 3.6 g/dL Albumin/Globulin Ratio 0.7 (1.0-2.7) L Current Medications Medications (Trade) Dose Ordered Sig/Ibrahima Route PRN Reason Start Time Stop Time Status Last Admin Dose Admin Acetaminophen (Tylenol) 650 mg Q4H PRN ORAL T>100.5 10/19/17 12:00 11/15/17 19:59 Al Hydroxide/Mg Hydroxide (Mylanta II) 30 ml Q6H PRN ORAL dyspepsia 10/19/17 12:00 11/15/17 11:59 Albuterol/ Ipratropium (Albuterol/ Ipratropium) 3 ml Q4H PRN HHN Shortness of Breath 10/19/17 12:00 10/24/17 11:59 10/22/17 15:28 Allopurinol (Zyloprim) 100 mg DAILY ORAL 10/20/17 09:00 11/16/17 08:59 10/24/17 08:48 Apixaban (Eliquis) 5 mg BID ORAL 10/22/17 09:00 11/21/17 08:59 10/24/17 08:49 Cefdinir (Cefdinir) 300 mg Q12HR ORAL 10/20/17 16:00 10/27/17 15:59 10/24/17 08:48 Clotrimazole (Lotrimin) 1 applic THREE TIMES A DAY TOPIC 10/19/17 13:00 11/18/17 08:59 10/24/17 08:47 Diltiazem HCl (Cardizem) 60 mg Q6H ORAL 10/23/17 02:00 11/22/17 01:59 10/24/17 08:48 Divalproex Sodium (Depakote) 250 mg Q12HR ORAL 10/19/17 21:00 11/15/17 20:59 10/24/17 08:48 Escitalopram Oxalate (Lexapro) 10 mg DAILY ORAL 10/20/17 09:00 11/16/17 15:59 10/24/17 08:48 Furosemide (Lasix) 20 mg DAILY IV 10/24/17 09:00 11/23/17 08:59 10/24/17 08:47 Lisinopril (Zestril) 5 mg DAILY ORAL 10/20/17 09:00 11/16/17 08:59 10/24/17 08:48 Methylprednisolone Sodium Succinate (Solu-MEDROL) 40 mg DAILY IVP 10/21/17 09:00 11/18/17 13:59 10/24/17 08:50 Nitroglycerin (Ntg) 0.4 mg Q5MIN X 3 DOSES PRN SL Prn Chest Pain 10/19/17 11:30 11/18/17 11:29 Ondansetron HCl (Zofran) 4 mg Q6H PRN IVP Nausea & Vomiting 10/19/17 14:00 11/15/17 19:59 Polyethylene Glycol (Miralax) 17 gm DAILYPRN PRN ORAL Constipation 10/19/17 12:00 11/15/17 11:59 Promethazine HCl/ Codeine (Phenergan with Codeine) 5 ml Q4H PRN ORAL For Cough 10/22/17 12:30 11/21/17 12:29 10/24/17 01:53 Danica Nayak M.D. October 24, 2017 11:04
[2017-10-24 12:00] VITALS: BP 136/68
[2017-10-24] MEDS ORDERED: Cefdinir 300mg cap ORAL SCH (12:00)
--- NOTE | 2017-10-24 12:40 | Pulmonology Progress Note ---
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 dc planning for am social services designee to find the DPOA Subjective ROS Limited/Unobtainable: No Interval Events: less cough, wheezing Allergies: Coded Allergies: NO KNOWN DRUG ALLERGIES (Unverified Allergy, Unknown, 07/11/15) Objective Last 24 Hour Vital Signs Date Time Temp Pulse Resp B/P (MAP) Pulse Ox O2 Delivery O2 Flow Rate FiO2 10/24/17 09:39 Nasal Cannula 2.0 32 10/24/17 09:38 96 Nasal Cannula 2.0 28 10/24/17 09:37 64 20 Nasal Cannula 2.0 28 10/24/17 08:48 65 130/67 10/24/17 08:48 130/67 10/24/17 04:00 60 10/24/17 04:00 97.7 61 20 109/56 98 Nasal Cannula 2.0 97.7 10/24/17 01:53 61 118/67 10/24/17 00:00 97.7 62 20 118/67 98 Nasal Cannula 2.0 97.7 10/24/17 00:00 61 10/23/17 21:47 60 128/55 10/23/17 20:00 98.8 60 20 128/55 96 Nasal Cannula 2.0 98.8 60 10/23/17 20:00 60 10/23/17 19:53 60 18 Nasal Cannula 2.0 28 10/23/17 19:53 Nasal Cannula 2.0 28 10/23/17 19:53 96 Nasal Cannula 2.0 28 10/23/17 16:00 97.0 60 20 134/56 96 Nasal Cannula 2.0 97.0 10/23/17 16:00 60 10/23/17 14:53 69 120/72 Intake and Output 10/23/17 10/24/17 19:00 07:00 Intake Total 360 ml 800 ml Output Total 1300 ml Balance -940 ml 800 ml Intake Oral 360 ml 800 ml Output Urine Total 1300 ml # Voids 1 3 Objective less coughing, wheezing General Appearance: WD/WN HEENT: normocephalic, atraumatic Respiratory/Chest: chest wall non-tender, wheezing Breasts: no masses Cardiovascular: normal peripheral pulses Abdomen: normal bowel sounds, soft, non tender Extremities: no cyanosis Skin: no rash Laboratory Tests 10/24/17 08:00: White Blood Count 5.1, Red Blood Count 4.29, Hemoglobin 13.0, Hematocrit 39.3, Mean Corpuscular Volume 92, Mean Corpuscular Hemoglobin 30.2, Mean Corpuscular Hemoglobin Concent 33.0, Red Cell Distribution Width 14.6, Platelet Count 127L, Mean Platelet Volume 8.9, Neutrophils (%) (Auto) 74.8, Lymphocytes (%) (Auto) 20.2, Monocytes (%) (Auto) 4.3, Eosinophils (%) (Auto) 0.2, Basophils (%) (Auto ) 0.5, Sodium Level 136, Potassium Level 4.2, Chloride Level 97L, Carbon Dioxide Level 34H, Anion Gap 5, Blood Urea Nitrogen 6L, Creatinine 0.7, Estimat Glomerular Filtration Rate , Glucose Level 157H, Calcium Level 8.3L, Total Bilirubin 0.3, Aspartate Amino Transf (AST/SGOT) 17, Alanine Aminotransferase ( ALT/SGPT) 19, Alkaline Phosphatase 46, Pro-B-Type Natriuretic Peptide 08531X, Total Protein 6.1L, Albumin 2.5L, Globulin 3.6, Albumin/Globulin Ratio 0.7L Current Medications Medications (Trade) Dose Ordered Sig/Ibrahima Route PRN Reason Start Time Stop Time Status Last Admin Dose Admin Acetaminophen (Tylenol) 650 mg Q4H PRN ORAL T>100.5 10/19/17 12:00 11/15/17 19:59 Al Hydroxide/Mg Hydroxide (Mylanta II) 30 ml Q6H PRN ORAL dyspepsia 10/19/17 12:00 11/15/17 11:59 Allopurinol (Zyloprim) 100 mg DAILY ORAL 10/20/17 09:00 11/16/17 08:59 10/24/17 08:48 Apixaban (Eliquis) 5 mg BID ORAL 10/22/17 09:00 11/21/17 08:59 10/24/17 08:49 Cefdinir (Cefdinir) 300 mg ONCE ORAL 10/24/17 12:00 10/24/17 13:00 Clotrimazole (Lotrimin) 1 applic THREE TIMES A DAY TOPIC 10/19/17 13:00 11/18/17 08:59 10/24/17 08:47 Diltiazem HCl (Cardizem) 60 mg Q6H ORAL 10/23/17 02:00 11/22/17 01:59 10/24/17 08:48 Divalproex Sodium (Depakote) 250 mg Q12HR ORAL 10/19/17 21:00 11/15/17 20:59 10/24/17 08:48 Escitalopram Oxalate (Lexapro) 10 mg DAILY ORAL 10/20/17 09:00 11/16/17 15:59 10/24/17 08:48 Furosemide (Lasix) 20 mg DAILY IV 10/24/17 09:00 11/23/17 08:59 10/24/17 08:47 Lisinopril (Zestril) 5 mg DAILY ORAL 10/20/17 09:00 11/16/17 08:59 10/24/17 08:48 Methylprednisolone Sodium Succinate (Solu-MEDROL) 40 mg DAILY IVP 10/21/17 09:00 11/18/17 13:59 10/24/17 08:50 Nitroglycerin (Ntg) 0.4 mg Q5MIN X 3 DOSES PRN SL Prn Chest Pain 10/19/17 11:30 11/18/17 11:29 Ondansetron HCl (Zofran) 4 mg Q6H PRN IVP Nausea & Vomiting 10/19/17 14:00 11/15/17 19:59 Polyethylene Glycol (Miralax) 17 gm DAILYPRN PRN ORAL Constipation 10/19/17 12:00 11/15/17 11:59 Promethazine HCl/ Codeine (Phenergan with Codeine) 5 ml Q4H PRN ORAL For Cough 10/22/17 12:30 11/21/17 12:29 10/24/17 01:53 Mendel Sierra MD October 24, 2017 12:40
--- NOTE | 2017-10-24 13:39 | Diagnostic Imaging Report ---
Indication: Cough Technique: One view of the chest Comparison: 10/22/2017 Findings: The heart is upper limits normal in size. The left lateral hemidiaphragm is obscured. There is some right infrahilar opacity again demonstrated. This appears slightly improved. Impression: Stable left basilar pleural fluid and/or parenchymal disease Improving right infrahilar parenchymal disease, over 2 days
--- NOTE | 2017-10-24 15:07 | General Progress Note ---
Assessment/Plan Assessment/Plan mdd cognitive impairment lexapro 10mg qam provided ro Subjective Date patient seen: October 23, 2017 Neurologic/Psychiatric: Reports: anxiety, depressed, emotional problems Allergies: Coded Allergies: NO KNOWN DRUG ALLERGIES (Unverified Allergy, Unknown, 07/11/15) Objective Last 24 Hour Vital Signs Date Time Temp Pulse Resp B/P (MAP) Pulse Ox O2 Delivery O2 Flow Rate FiO2 10/24/17 13:46 60 136/68 10/24/17 12:00 97.8 60 20 136/68 95 Nasal Cannula 2.0 97.8 10/24/17 09:39 Nasal Cannula 2.0 32 10/24/17 09:38 96 Nasal Cannula 2.0 28 10/24/17 09:37 64 20 Nasal Cannula 2.0 28 10/24/17 08:48 65 130/67 10/24/17 08:48 130/67 10/24/17 08:00 98.2 65 20 130/67 95 Nasal Cannula 2.0 98.2 10/24/17 04:00 60 10/24/17 04:00 97.7 61 20 109/56 98 Nasal Cannula 2.0 97.7 10/24/17 01:53 61 118/67 10/24/17 00:00 97.7 62 20 118/67 98 Nasal Cannula 2.0 97.7 10/24/17 00:00 61 10/23/17 21:47 60 128/55 10/23/17 20:00 98.8 60 20 128/55 96 Nasal Cannula 2.0 98.8 60 10/23/17 20:00 60 10/23/17 19:53 60 18 Nasal Cannula 2.0 28 10/23/17 19:53 Nasal Cannula 2.0 28 10/23/17 19:53 96 Nasal Cannula 2.0 28 10/23/17 16:00 97.0 60 20 134/56 96 Nasal Cannula 2.0 97.0 10/23/17 16:00 60 Intake and Output 10/23/17 10/24/17 19:00 07:00 Intake Total 360 ml 800 ml Output Total 1300 ml Balance -940 ml 800 ml Intake Oral 360 ml 800 ml Output Urine Total 1300 ml # Voids 1 3 Laboratory Tests 10/24/17 08:00: White Blood Count 5.1, Red Blood Count 4.29, Hemoglobin 13.0, Hematocrit 39.3, Mean Corpuscular Volume 92, Mean Corpuscular Hemoglobin 30.2, Mean Corpuscular Hemoglobin Concent 33.0, Red Cell Distribution Width 14.6, Platelet Count 127L, Mean Platelet Volume 8.9, Neutrophils (%) (Auto) 74.8, Lymphocytes (%) (Auto) 20.2, Monocytes (%) (Auto) 4.3, Eosinophils (%) (Auto) 0.2, Basophils (%) (Auto ) 0.5, Sodium Level 136, Potassium Level 4.2, Chloride Level 97L, Carbon Dioxide Level 34H, Anion Gap 5, Blood Urea Nitrogen 6L, Creatinine 0.7, Estimat Glomerular Filtration Rate , Glucose Level 157H, Calcium Level 8.3L, Total Bilirubin 0.3, Aspartate Amino Transf (AST/SGOT) 17, Alanine Aminotransferase ( ALT/SGPT) 19, Alkaline Phosphatase 46, Pro-B-Type Natriuretic Peptide 73026A, Total Protein 6.1L, Albumin 2.5L, Globulin 3.6, Albumin/Globulin Ratio 0.7L Height (Feet): 5 Height (Inches): 3.00 Weight (Pounds): 170 General Appearance: no apparent distress, alert, confused Luiz Morrison M.D. October 24, 2017 15:07
--- NOTE | 2017-10-24 15:07 | General Progress Note ---
Assessment/Plan Status: stable, progressing Assessment/Plan mdd cognitive impairment lexapro 10mg qam provided ro Subjective Date patient seen: October 24, 2017 Neurologic/Psychiatric: Reports: anxiety, depressed, emotional problems Allergies: Coded Allergies: NO KNOWN DRUG ALLERGIES (Unverified Allergy, Unknown, 07/11/15) Subjective the pt is more anxious Objective Last 24 Hour Vital Signs Date Time Temp Pulse Resp B/P (MAP) Pulse Ox O2 Delivery O2 Flow Rate FiO2 10/24/17 13:46 60 136/68 10/24/17 12:00 97.8 60 20 136/68 95 Nasal Cannula 2.0 97.8 10/24/17 09:39 Nasal Cannula 2.0 32 10/24/17 09:38 96 Nasal Cannula 2.0 28 10/24/17 09:37 64 20 Nasal Cannula 2.0 28 10/24/17 08:48 65 130/67 10/24/17 08:48 130/67 10/24/17 08:00 98.2 65 20 130/67 95 Nasal Cannula 2.0 98.2 10/24/17 04:00 60 10/24/17 04:00 97.7 61 20 109/56 98 Nasal Cannula 2.0 97.7 10/24/17 01:53 61 118/67 10/24/17 00:00 97.7 62 20 118/67 98 Nasal Cannula 2.0 97.7 10/24/17 00:00 61 10/23/17 21:47 60 128/55 10/23/17 20:00 98.8 60 20 128/55 96 Nasal Cannula 2.0 98.8 60 10/23/17 20:00 60 10/23/17 19:53 60 18 Nasal Cannula 2.0 28 10/23/17 19:53 Nasal Cannula 2.0 28 10/23/17 19:53 96 Nasal Cannula 2.0 28 10/23/17 16:00 97.0 60 20 134/56 96 Nasal Cannula 2.0 97.0 10/23/17 16:00 60 Intake and Output 10/23/17 10/24/17 19:00 07:00 Intake Total 360 ml 800 ml Output Total 1300 ml Balance -940 ml 800 ml Intake Oral 360 ml 800 ml Output Urine Total 1300 ml # Voids 1 3 Laboratory Tests 10/24/17 08:00: White Blood Count 5.1, Red Blood Count 4.29, Hemoglobin 13.0, Hematocrit 39.3, Mean Corpuscular Volume 92, Mean Corpuscular Hemoglobin 30.2, Mean Corpuscular Hemoglobin Concent 33.0, Red Cell Distribution Width 14.6, Platelet Count 127L, Mean Platelet Volume 8.9, Neutrophils (%) (Auto) 74.8, Lymphocytes (%) (Auto) 20.2, Monocytes (%) (Auto) 4.3, Eosinophils (%) (Auto) 0.2, Basophils (%) (Auto ) 0.5, Sodium Level 136, Potassium Level 4.2, Chloride Level 97L, Carbon Dioxide Level 34H, Anion Gap 5, Blood Urea Nitrogen 6L, Creatinine 0.7, Estimat Glomerular Filtration Rate , Glucose Level 157H, Calcium Level 8.3L, Total Bilirubin 0.3, Aspartate Amino Transf (AST/SGOT) 17, Alanine Aminotransferase ( ALT/SGPT) 19, Alkaline Phosphatase 46, Pro-B-Type Natriuretic Peptide 72514O, Total Protein 6.1L, Albumin 2.5L, Globulin 3.6, Albumin/Globulin Ratio 0.7L Height (Feet): 5 Height (Inches): 3.00 Weight (Pounds): 170 General Appearance: no apparent distress, alert Neurologic: responsive, depressed affect Luiz Morrison M.D. October 24, 2017 15:07
[2017-10-24 16:00] VITALS: BP 130/68
--- NOTE | 2017-10-24 17:59 | Cardiology Progress Note ---
Assessment/Plan Assessment/Plan paf hs of leadless pacer implantation bronchospams copd trachy resolved bronchosapsm imporved is off bb off hydralazien on cardizem 60 qid hr is paced intermittent sinus on eliquis Subjective Cardiovascular: Denies: chest pain, lightheadedness, palpitations Respiratory: Denies: shortness of breath Gastrointestinal/Abdominal: Denies: abdominal pain Genitourinary: Denies: no symptoms Objective Last 24 Hour Vital Signs Date Time Temp Pulse Resp B/P (MAP) Pulse Ox O2 Delivery O2 Flow Rate FiO2 10/24/17 16:00 97.7 60 20 130/68 95 Nasal Cannula 2.0 97.7 10/24/17 13:46 60 136/68 10/24/17 12:00 97.8 60 20 136/68 95 Nasal Cannula 2.0 97.8 10/24/17 12:00 63 10/24/17 09:39 Nasal Cannula 2.0 32 10/24/17 09:38 96 Nasal Cannula 2.0 28 10/24/17 09:37 64 20 Nasal Cannula 2.0 28 10/24/17 08:48 65 130/67 10/24/17 08:48 130/67 10/24/17 08:00 60 10/24/17 08:00 98.2 65 20 130/67 95 Nasal Cannula 2.0 98.2 10/24/17 04:00 60 10/24/17 04:00 97.7 61 20 109/56 98 Nasal Cannula 2.0 97.7 10/24/17 01:53 61 118/67 10/24/17 00:00 97.7 62 20 118/67 98 Nasal Cannula 2.0 97.7 10/24/17 00:00 61 10/23/17 21:47 60 128/55 10/23/17 20:00 98.8 60 20 128/55 96 Nasal Cannula 2.0 98.8 60 10/23/17 20:00 60 10/23/17 19:53 60 18 Nasal Cannula 2.0 28 10/23/17 19:53 Nasal Cannula 2.0 28 10/23/17 19:53 96 Nasal Cannula 2.0 28 General Appearance: alert Neck: no JVD Cardiovascular: normal rate Respiratory/Chest: decreased breath sounds, expiratory wheezing Abdomen: normal bowel sounds, non tender, soft Extremities: no swelling Intake and Output 10/23/17 10/24/17 19:00 07:00 Intake Total 360 ml 800 ml Output Total 1300 ml Balance -940 ml 800 ml Intake Oral 360 ml 800 ml Output Urine Total 1300 ml # Voids 1 3 Laboratory Tests Test 10/24/17 08:00 White Blood Count 5.1 K/UL (4.8-10.8) Red Blood Count 4.29 M/UL (4.20-5.40) Hemoglobin 13.0 G/DL (12.0-16.0) Hematocrit 39.3 % (37.0-47.0) Mean Corpuscular Volume 92 FL (80-99) Mean Corpuscular Hemoglobin 30.2 PG (27.0-31.0) Mean Corpuscular Hemoglobin Concent 33.0 G/DL (32.0-36.0) Red Cell Distribution Width 14.6 % (11.6-14.8) Platelet Count 127 K/UL (150-450) L Mean Platelet Volume 8.9 FL (6.5-10.1) Neutrophils (%) (Auto) 74.8 % (45.0-75.0) Lymphocytes (%) (Auto) 20.2 % (20.0-45.0) Monocytes (%) (Auto) 4.3 % (1.0-10.0) Eosinophils (%) (Auto) 0.2 % (0.0-3.0) Basophils (%) (Auto) 0.5 % (0.0-2.0) Sodium Level 136 MMOL/L (136-145) Potassium Level 4.2 MMOL/L (3.5-5.1) Chloride Level 97 MMOL/L (98-107) L Carbon Dioxide Level 34 MMOL/L (21-32) H Anion Gap 5 mmol/L (5-15) Blood Urea Nitrogen 6 mg/dL (7-18) L Creatinine 0.7 MG/DL (0.55-1.30) Estimat Glomerular Filtration Rate mL/min (>60) Glucose Level 157 MG/DL (74-106) H Calcium Level 8.3 MG/DL (8.5-10.1) L Total Bilirubin 0.3 MG/DL (0.2-1.0) Aspartate Amino Transf (AST/SGOT) 17 U/L (15-37) Alanine Aminotransferase (ALT/SGPT) 19 U/L (12-78) Alkaline Phosphatase 46 U/L (46-116) Pro-B-Type Natriuretic Peptide 78056 pg/mL (0-125) H Total Protein 6.1 G/DL (6.4-8.2) L Albumin 2.5 G/DL (3.4-5.0) L Globulin 3.6 g/dL Albumin/Globulin Ratio 0.7 (1.0-2.7) L Akbar Reno MD October 24, 2017 17:59
[2017-10-24 20:00] VITALS: BP_SYST 134; BP_SYST 141; BP_DIAS 66; BP_DIAS 78
[2017-10-25] VITALS: BP 134/78
[2017-10-25] MEDS: dilTIAZem HCl 60mg tab ORAL SCH ×3 (02:00→13:49)
[2017-10-25 04:00] VITALS: BP 138/64
[2017-10-25 08:00] VITALS: BP 143/74
[2017-10-25] MEDS: Lisinopril 2.5mg tab ORAL SCH (08:52)
[2017-10-25] MEDS: Eliquis 2.5mg tablet ORAL SCH (08:52)
[2017-10-25] MEDS: Solu-MEDROL 40mg Inj IVP SCH (08:52)
[2017-10-25] MEDS: Allopurinol 100mg Tab ORAL SCH (08:56)
[2017-10-25] MEDS ORDERED: 1/2 NS 1000ml IV ONE (11:07)
[2017-10-25 12:00] VITALS: BP 162/80
[2017-10-25] MEDS ORDERED: ELIQUIS2.5 MG ORAL (12:25)
[2017-10-25] MEDS ORDERED: CARDIZEM60 MG ORAL (12:25)
--- NOTE | 2017-10-25 12:27 | Pulmonology Progress Note ---
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 dc planning for am social service agency director to find the DPOA Subjective ROS Limited/Unobtainable: No Constitutional: Reports: no symptoms HEENT: Repors: no symptoms Respiratory: Reports: no symptoms Allergies: Coded Allergies: NO KNOWN DRUG ALLERGIES (Unverified Allergy, Unknown, 07/11/15) Objective Last 24 Hour Vital Signs Date Time Temp Pulse Resp B/P (MAP) Pulse Ox O2 Delivery O2 Flow Rate FiO2 10/25/17 08:52 143/74 10/25/17 08:51 63 143/74 10/25/17 08:00 98.4 63 20 143/74 92 Room Air 98.4 10/25/17 07:56 127 10/25/17 07:21 Room Air 21 10/25/17 07:21 95 Room Air 21 10/25/17 07:21 69 18 Room Air 21 10/25/17 04:35 67 18 Nasal Cannula 2.0 28 10/25/17 04:35 Nasal Cannula 2.0 28 10/25/17 04:35 96 Nasal Cannula 2.0 28 10/25/17 04:00 97.7 64 20 138/64 95 Room Air 97.7 10/25/17 04:00 64 10/25/17 00:00 97.5 67 22 134/78 96 Nasal Cannula 2.0 97.5 10/25/17 00:00 62 10/24/17 21:08 61 141/66 10/24/17 20:00 96.3 61 20 141/66 95 Nasal Cannula 2.0 96.3 10/24/17 20:00 62 10/24/17 18:47 61 10/24/17 16:00 97.7 60 20 130/68 95 Nasal Cannula 2.0 97.7 10/24/17 13:46 60 136/68 Intake and Output 10/24/17 10/25/17 19:00 07:00 Intake Total 960 ml Balance 960 ml Intake Oral 960 ml # Voids 2 2 Objective less coughing, wheezing General Appearance: WD/WN HEENT: normocephalic, atraumatic Respiratory/Chest: chest wall non-tender, wheezing Breasts: no masses Cardiovascular: normal peripheral pulses Abdomen: normal bowel sounds, soft, non tender Extremities: no cyanosis Skin: no rash Current Medications Medications (Trade) Dose Ordered Sig/Ibrahima Route PRN Reason Start Time Stop Time Status Last Admin Dose Admin Acetaminophen (Tylenol) 650 mg Q4H PRN ORAL T>100.5 10/19/17 12:00 11/15/17 19:59 Acetaminophen (Tylenol) 650 mg Q4H PRN ORAL Mild Pain 10/25/17 09:00 11/24/17 08:59 Al Hydroxide/Mg Hydroxide (Mylanta II) 30 ml Q6H PRN ORAL dyspepsia 10/19/17 12:00 11/15/17 11:59 Allopurinol (Zyloprim) 100 mg DAILY ORAL 10/20/17 09:00 11/16/17 08:59 10/25/17 08:56 Apixaban (Eliquis) 5 mg BID ORAL 10/22/17 09:00 11/21/17 08:59 10/25/17 08:52 Clotrimazole (Lotrimin) 1 applic THREE TIMES A DAY TOPIC 10/19/17 13:00 11/18/17 08:59 10/25/17 08:56 Diltiazem HCl (Cardizem) 60 mg Q6H ORAL 10/23/17 02:00 11/22/17 01:59 10/25/17 08:51 Divalproex Sodium (Depakote) 250 mg Q12HR ORAL 10/19/17 21:00 11/15/17 20:59 10/25/17 08:52 Escitalopram Oxalate (Lexapro) 10 mg DAILY ORAL 10/20/17 09:00 11/16/17 15:59 10/25/17 08:52 Furosemide (Lasix) 20 mg EVERY 12 HOURS IV 10/24/17 21:00 11/23/17 08:59 10/25/17 08:51 Lisinopril (Zestril) 5 mg DAILY ORAL 10/20/17 09:00 11/16/17 08:59 10/25/17 08:52 Methylprednisolone Sodium Succinate (Solu-MEDROL) 40 mg DAILY IVP 10/21/17 09:00 11/18/17 13:59 10/25/17 08:52 Nitroglycerin (Ntg) 0.4 mg Q5MIN X 3 DOSES PRN SL Prn Chest Pain 10/19/17 11:30 11/18/17 11:29 Ondansetron HCl (Zofran) 4 mg Q6H PRN IVP Nausea & Vomiting 10/19/17 14:00 11/15/17 19:59 Polyethylene Glycol (Miralax) 17 gm DAILYPRN PRN ORAL Constipation 10/19/17 12:00 11/15/17 11:59 Promethazine HCl/ Codeine (Phenergan with Codeine) 5 ml Q4H PRN ORAL For Cough 10/22/17 12:30 11/21/17 12:29 10/24/17 01:53 Mendel Sierra MD October 25, 2017 12:27
--- NOTE | 2017-10-25 12:32 | General Progress Note ---
Assessment/Plan Status: stable Assessment/Plan #. Thrombocytopenia, likely secondary to underlying alcohol abuse. Continue to closely monitor. US Mildly coarsened hepatic echogenicity and equivocal surface nodularity, if real could indicate early cirrhotic changes ---> counts have been in the 100-150k range, closely monitor for improvement ---> if any bleeding, could be platelet defect #. DVT of the left leg, recanalized. Does not require any further anticoagulation. ---> no evidence of leg swelling #. Urinary tract infection. Currently, is on broad-spectrum antibiotics. --> as per pcp and ID #. History of alcohol abuse. #. Seizure disorder. #. HTN - with systolic blood pressure greater than 140. Subjective Date patient seen: October 25, 2017 Allergies: Coded Allergies: NO KNOWN DRUG ALLERGIES (Unverified Allergy, Unknown, 07/11/15) All Systems: reviewed and negative except above Subjective Pt seen asleep in bed. No s/s of acute medical distress Objective Last 24 Hour Vital Signs Date Time Temp Pulse Resp B/P (MAP) Pulse Ox O2 Delivery O2 Flow Rate FiO2 10/25/17 08:52 143/74 10/25/17 08:51 63 143/74 10/25/17 08:00 98.4 63 20 143/74 92 Room Air 98.4 10/25/17 07:56 127 10/25/17 07:21 Room Air 21 10/25/17 07:21 95 Room Air 21 10/25/17 07:21 69 18 Room Air 21 10/25/17 04:35 67 18 Nasal Cannula 2.0 28 10/25/17 04:35 Nasal Cannula 2.0 28 10/25/17 04:35 96 Nasal Cannula 2.0 28 10/25/17 04:00 97.7 64 20 138/64 95 Room Air 97.7 10/25/17 04:00 64 10/25/17 00:00 97.5 67 22 134/78 96 Nasal Cannula 2.0 97.5 10/25/17 00:00 62 10/24/17 21:08 61 141/66 10/24/17 20:00 96.3 61 20 141/66 95 Nasal Cannula 2.0 96.3 10/24/17 20:00 62 10/24/17 18:47 61 10/24/17 16:00 97.7 60 20 130/68 95 Nasal Cannula 2.0 97.7 10/24/17 13:46 60 136/68 Intake and Output 10/24/17 10/25/17 19:00 07:00 Intake Total 960 ml Balance 960 ml Intake Oral 960 ml # Voids 2 2 Height (Feet): 5 Height (Inches): 3.00 Weight (Pounds): 169 General Appearance: no apparent distress EENT: normal ENT inspection Neck: supple Cardiovascular: normal rate Respiratory/Chest: lungs clear Abdomen: non tender Jv Rodriguez MD October 25, 2017 12:32
[2017-10-25 13:49] VITALS: BP 162/80
[2017-10-25] MEDS ORDERED: CEFDINIR300 MG PO (14:34)
--- NOTE | 2017-10-26 10:29 | Discharge Summary ---
Discharge Summary Discharge Summary _ DATE OF ADMISSION: 10/16/2017 DATE OF DISCHARGE: 10/25/2017 REASON FOR ADMISSION: 77 years old female with past medical history significant for hypertension, CHF, COPD, seizure disorder, depression and anxiety ,history of alcohol abuse, history of leadless pacemaker implantation, wheelchair-bound, prison resident, was brought to emergency department for evaluation for erratic behavior. Upon arrival patient stated that she was feeling weak, nauseous, with.persistent cough with productive yellow phlegm. Patient was afebrile. Pulse oximetry was stable on room air. No leukocytosis , stable hemoglobin and hematocrit. Lactic acid stable. Urinalysis with pyuria a, positive for leukocytes esterase, moderate bacteria. Chest x-ray showed possible infiltrate. patient was provided patient was started on empiric antibiotic. Patient admitted with diagnosis of acute encephalopathy, urinary tract infection , COPD, possible pneumonia, history of ETOH abuse, depression, seizure disorder ,hypertension, generalized weakness. CONSULTANTS: hand i thermal cutter Dr. Reno ID specialist Sunni lumber sorter/oncologist Dr Rodriguez psychiatrist Dr. Morrison [facility]SE: Patient admitted to Med Surg floor.Patient pancultured and started on empiric antibiotics. ID specialist closely followed. Urine culture revealed Proteus, blood culture were negative. Patient status post antibiotic treatment for UTI and possible pneumonia. Supplemental oxygen provided as needed to keep pulse oximetry above 92%, pulmonary toilet provided with hand-held nebulizing. Antitussive provided as needed. Patient on IV steroids with gradual tapering. Patient developed tachycardia and was transferred to telemetry floor. Telemetry demonstrated atrial flutter with rapid ventricular response. [place] Cutter closely followed and started patient on beta anil for rate control. However , patient developed bronchospasm and beta anil was stopped along with hydralazine. Patient started on Cardizem. Heart rate controlled. Blood pressure controlled. Steroids tapered and discontinued. Anticoagulation with Eliquis continued. Patient with known history of diastolic dysfunction. Patient demonstrated evidence of respiratory distress , dose of Lasix was increased. Echocardiogram revealed grossly preserved ejection fraction, normal wall motion , mild to moderate aortic insufficiency and moderate mitral regurgitation. Right ventricular systolic pressure of 44, consistent with mild pulmonary hypertension . Respiratory status gradually improved on, prior to discharge pulse oximetry stable on room air. Swallow evaluation revealed evidence of dysphagia. Diet modified as per speech therapy recommendations with strict aspiration and reflux precautions. Psychiatrist closely followed. Per psychiatrist patient had major depressive disorder and cognitive impairment. Psychiatrist started patient on Lexapro and provided reality orientation along with supportive therapy. Seizure precautions were maintained. No seizure activity while in the hospital. Depakote was continued. Auction Assistant seen the patient for thrombocytopenia. Per lumber sorter, mild thrombocytopenia was likely due to history of alcohol abuse. Counts were clsoely monitored. Remained at the baseline, continue close watching at the facility. Symptomatic treatment provided. Pain management was addressed. Bowel regimen was instituted. GI prophylaxis provided. Patient was working with physical therapist. Fall precautions maintained. Patient clinically improved and was stable for discharge back to [facility] facility FINAL DIAGNOSES: Acute respiratory failure Acute encephalopathy, COPD exacerbation Bronchospasm Bronchitis Possible pneumonia Urinary tract infection with Proteus Atrial flutter with rapid ventricular response, resolved History of leadless pacemaker implantation Hypertension Major depressive disorder History of CVA Dysphagia History of ETOH abuse Thrombocytopenia Seizure disorder DISCHARGE MEDICATIONS: See Medication Reconciliation list. DISCHARGE INSTRUCTIONS: Patient was discharged to [facility] facility. Patient to follow-up with health care provider at the facility I have been assigned to dictate discharge summary for this account. I was not involved in the patient's management. Jazzy Campuzano NP October 26, 2017 10:29
--- NOTE | 2017-10-28 10:21 | Cardiology Report ---
APPROVED REPORT EXAM: Two-dimensional and M-mode echocardiogram with Doppler and color Doppler. INDICATION Left Ventricular Function M-Mode DIMENSIONS IVSd1.7 (0.7-1.1cm)Left Atrium (MM)4.6 (1.6-4.0cm) LVDd2.9 (3.5-5.6cm)Aortic Root2.0 (2.0-3.7cm) PWd1.9 (0.7-1.1cm)Aortic Cusp Exc.1.0 (1.5-2.0cm) LVDs4.2 (2.5-4.0cm) PWs2.8 cm Technically difficult study due to poor acoustic windows. Study quality precludes accurate assessment of regional wall motion. Normal left ventricular chamber size, systolic function and wall motion to extent visualized. Left ventricular ejection fraction estimated to be grossly normal. Mild left ventricular hypertrophy. Anterior Echo-free space, may be due to pericardial fat or effusion. Mild left atrial enlargement. Right cardiac chamber sizes are within normal limits. Moderate focal aortic valve sclerosis with reduced cusp excursion. Heavily thickened mitral valve leaflets with reduced excursion. Echogenic material on mitral valve leaflets, likely calcification. Heavy mitral annulus and aortic root calcification. Pulmonic valve not well visualized. Normal tricuspid valve structure. IVC dilated at 2.1 cm with physiological collapse, suggestive of increased RA pressure. A color flow and spectral Doppler study was performed and revealed: Mild to moderate aortic insufficiency. peak aortic valve gradient of 11 mmHg and a mean of 6 mmHg. Aortic valve area 1.6 cm2 calculated by continuity equation. Moderate mitral regurgitation. Mitral P1/2 time of 77 m/s is compatible with a mitral valve area of 2.9 cm2. Peak mitral valve diastolic gradient of 14 mmHg and a mean gradient of 5 mmHg. Mitral inflow indicate normal left ventricular diastolic function. Mild tricuspid regurgitation. Tricuspid systolic velocities suggests peak right ventricular systolic pressure of 44 mmHg, consistent with mild pulmonary hypertension.
--- NOTE | 2017-10-28 15:48 | General Progress Note ---
Assessment/Plan Assessment/Plan mdd cognitive impairment lexapro 10mg qam provided ro Subjective Date patient seen: October 25, 2017 Neurologic/Psychiatric: Reports: anxiety, depressed, emotional problems Allergies: Coded Allergies: NO KNOWN DRUG ALLERGIES (Unverified Allergy, Unknown, 07/11/15) Objective Height (Feet): 5 Height (Inches): 3.00 Weight (Pounds): 169 Luiz Morrison M.D. October 28, 2017 15:48
== END 2017-10-25 15:20 | DRG 70 ==
LOC: EDBD 15:29 → EDBEDREQ 15:59 → EMR 16:21 → 4E 16:24 → EDBEDREQ 17:03 → 4E 10-18 13:08 → 2E 10-19 09:48
DX: G93.40 Encephalopathy, unspecified (principal); J18.9 Pneumonia, unspecified organism; J96.00 Acute respiratory failure, unspecified whether with hypoxia or hypercapnia; N39.0 Urinary tract infection, site not specified; J44.1 Chronic obstructive pulmonary disease with (acute) exacerbation; I48.92 Unspecified atrial flutter; I82.502 Chronic embolism and thrombosis of unspecified deep veins of left lower extremity; I27.20 Pulmonary hypertension, unspecified; F32.9 Major depressive disorder, single episode, unspecified; D69.6 Thrombocytopenia, unspecified; I35.1 Nonrheumatic aortic (valve) insufficiency; I34.0 Nonrheumatic mitral (valve) insufficiency; J40 Bronchitis, not specified as acute or chronic; J98.01 Acute bronchospasm; B96.4 Proteus (mirabilis) (morganii) as the cause of diseases classified elsewhere; I10 Essential (primary) hypertension; F03.90 Unspecified dementia, unspecified severity, without behavioral disturbance, psychotic disturbance, mood disturbance, and anxiety; Z95.0 Presence of cardiac pacemaker; F10.21 Alcohol dependence, in remission; Z86.73 Personal history of transient ischemic attack (TIA), and cerebral infarction without residual deficits; Z96.643 Presence of artificial hip joint, bilateral; G40.909 Epilepsy, unspecified, not intractable, without status epilepticus; I48.91 Unspecified atrial fibrillation; Z87.891 Personal history of nicotine dependence; Z79.01 Long term (current) use of anticoagulants; Z22.322 Carrier or suspected carrier of Methicillin resistant Staphylococcus aureus; I25.10 Atherosclerotic heart disease of native coronary artery without angina pectoris; Z95.5 Presence of coronary angioplasty implant and graft
CPT/HCPCS: 36415; 71045; 76700; 80048; 80053; 80069; 81003; 83605; 83880; 84484; 85025; 87040; 87081; 87086; 87181; 93005; 93306; 94640; 94664; 94760; 99285; J7620

== ENCOUNTER 2018-03-10 13:20 | Inpatient (IN) | payer MEDICARE, OTHER ==
[~2018-03-10] VITALS: Ht 160 cm; Wt 85.7 kg
[~2018-03-10 13:20] MED LIST changes: +ARTIFICIAL TEAR15 ML BOTH EYES; +BACTRIM DS TAB1 EAC1 ORAL; +BISACODYL10 M1 RC; +CARDIZEM60 MG ORAL; +CEFDINIR300 MG PO; +ELIQUIS2.5 MG ORAL; +FISH OIL 1,0001 EAC1 ORAL; +PANTOPRAZOLE SO40 MG ORAL; +VANCOMYCIN IV
[2018-03-10 13:49] VITALS: BP 155/57
--- NOTE | 2018-03-10 14:20 | Emergency Room Report ---
History of Present Illness General Chief Complaint: Generalized Weakness Source: Patient, Medical Record Present Illness HPI 77-year-old female, history of hypertension, COPD, atrial flutter, seizure disorder, depression/schizophrenia, history of alcohol abuse, coming [facility] for generalized weakness. Patient states that for the last few days she has been sleeping more than usual, says that she feels depressed. Also says that she feels generally weak. Denies any suicidal or homicidal ideation. Says that she has been eating and drinking slightly. Denies any actual pain no headache no blurry vision or chest pain. Patient does state that she has slight shortness of breath. No nausea vomiting diarrhea or abdominal pain Allergies: Coded Allergies: NO KNOWN DRUG ALLERGIES (Unverified Allergy, Unknown, 07/11/15) PIPERACILLIN (Unverified Allergy, Unknown, 03/10/18) TAZOBACTAM (Unverified Allergy, Unknown, 03/10/18) Patient History Past Medical History: see triage record Past Surgical History: none Pertinent Family History: none Reviewed Nursing Documentation: PMH: Agreed; PSxH: Agreed Nursing Documentation-PMH Past Medical History: No History, Except For Hx Cardiac Problems: Yes Hx Hypertension: Yes Hx Pacemaker: No - stent Hx Asthma: No Hx COPD: Yes Hx Diabetes: No Hx Cancer: No Hx Gastrointestinal Problems: Yes Hx Dialysis: No Hx Neurological Problems: Yes Hx Cerebrovascular Accident: Yes Hx Dementia: Yes Hx Seizures: Yes - epilepsy Hx Tremors: Yes Hx Vertigo: Yes Hx Dizziness: Yes Hx Syncope: Yes Hx Headaches: Yes - occasional Hx Weakness: Yes Hx Fatigue: Yes Review of Systems All Other Systems: negative except mentioned in HPI Physical Exam Vital Signs Date Time Temp Pulse Resp B/P (MAP) Pulse Ox O2 Delivery O2 Flow Rate FiO2 03/10/18 13:21 98.0 76 16 144/90 91 Room Air 98.1 Sp02 EP Interpretation: reviewed, normal General Appearance: alert, mild distress, Chronically Ill Head: normocephalic, atraumatic Eyes: bilateral eye normal inspection, bilateral eye PERRL, bilateral eye EOMI ENT: normal ENT inspection, normal pharynx, normal voice, moist mucus membranes Neck: normal inspection, full range of motion, supple Respiratory: other - Appears slightly short of breath however she is speaking complete sentences, very slight expiratory wheezing, satting 98% on room air Cardiovascular #1: tachycardia, irregularly irregular Cardiovascular #2: 2+ radial (R), 2+ radial (L) Gastrointestinal: normal inspection, non tender, soft, non-distended, no guarding Musculoskeletal: normal inspection, back normal, normal range of motion, non- tender Neurologic: other - Awake alert, oriented to person and time, does not know place, slightly confused, globally weak but no focal deficits Psychiatric: depressed affect Skin: normal inspection, normal color, no rash, warm/dry, well hydrated, normal turgor Procedures Critical Care Time Critical Care Time 40-45 minutes of CC time 77-year-old female, generalized weakness, found to be profoundly hyponatremic, also atrial fibrillation with RVR, requires very close cardiopulmonary monitoring Anticipate admission to ICU CC time also includes review of labs, review of EMR, discussion with family and paperwork from SNF, d/w hospitalist CC could include dosing of pressors, additional Abx CC time does not include procedures Medical Decision Making Diagnostic Impression: Primary Impression: Generalized weakness Additional Impressions: Hyponatremia Pleural effusion Depressed Pneumonia Atrial fibrillation with RVR ER Course 77-year-old female coming from residential generalized weakness Also short of breath and found to be tachycardic DDX: Dehydration, electronic disturbance, ACS, atrial fibrillation with RVR, UTI, pneumonia, other infectious source, depression Plan: Obtain labs, ua, EKG, CXR ER course: Patient found to be hyponatremic No fluids given Also H of fibrillation with RVR, given 1 dose of IV Cardizem, heart rate improved to 100 X-ray with infiltrate versus pleural effusion, given empiric antibiotics Disposition: Patient is to be admitted to [facility] hospitalist Dr Mendoza Please note that this Emergency Department Report was dictated using raksulrec[employer] manager technology software, occasionally this can lead to erroneous entry secondary to interpretation by the dictation equipment. EKG Diagnostic Results EP Interpretation: Yes Rate: normal Rhythm: NSR ST Segments: T-wave flattening V2 ASA given to patient: No Rhythm Strip EP Interpretation: Yes Rate:130 Rhythm: afib Chest X-ray CXR: Ordered: Yes 1 view Indication: Weakness EP interpretation: Yes Interpretation: cardiomegaly, L pleural effusion v.s infiltrate, +chf Impression: cardiomegaly, L pleural effusion v.s infiltrate, +chf Electronically signed by Nidia Russell MD Laboratory Tests Test 03/10/18 14:10 03/10/18 14:21 03/10/18 15:07 White Blood Count 8.0 K/UL (4.8-10.8) Red Blood Count 4.51 M/UL (4.20-5.40) Hemoglobin 13.3 G/DL (12.0-16.0) Hematocrit 38.6 % (37.0-47.0) Mean Corpuscular Volume 86 FL (80-99) Mean Corpuscular Hemoglobin 29.4 PG (27.0-31.0) Mean Corpuscular Hemoglobin Concent 34.4 G/DL (32.0-36.0) Red Cell Distribution Width 13.0 % (11.6-14.8) Platelet Count 183 K/UL (150-450) Mean Platelet Volume 7.1 FL (6.5-10.1) Neutrophils (%) (Auto) 73.3 % (45.0-75.0) Lymphocytes (%) (Auto) 13.9 % (20.0-45.0) L Monocytes (%) (Auto) 7.6 % (1.0-10.0) Eosinophils (%) (Auto) 3.6 % (0.0-3.0) H Basophils (%) (Auto) 1.6 % (0.0-2.0) Sodium Level 117 MMOL/L (136-145) *L Potassium Level 4.4 MMOL/L (3.5-5.1) Chloride Level 82 MMOL/L (98-107) L Carbon Dioxide Level 32 MMOL/L (21-32) Anion Gap 3 mmol/L (5-15) L Blood Urea Nitrogen 7 mg/dL (7-18) Creatinine 0.5 MG/DL (0.55-1.30) L Estimate Glomerular Filtration Rate mL/min (>60) Glucose Level 98 MG/DL (74-106) Calcium Level 8.1 MG/DL (8.5-10.1) L Total Bilirubin 0.4 MG/DL (0.2-1.0) Aspartate Amino Transferase (AST) 12 U/L (15-37) L Alanine Aminotransferase (ALT) 16 U/L (12-78) Alkaline Phosphatase 59 U/L (46-116) Creatine Kinase MB 1.4 NG/ML (0.0-3.6) Troponin I 0.000 ng/mL (0.000-0.056) Total Protein 6.4 G/DL (6.4-8.2) Albumin 3.1 G/DL (3.4-5.0) L Globulin 3.3 g/dL Albumin/Globulin Ratio 0.9 (1.0-2.7) L Thyroid Stimulating Hormone (TSH) 2.957 uiU/mL (0.358-3.740) Prothrombin Time 11.0 SEC (9.30-11.50) Prothrombin Time INR 1.0 (0.9-1.1) PTT 30 SEC (23-33) Lactic Acid Level 1.30 mmol/L (0.4-2.0) Urine Color Pale yellow Urine Appearance Clear Urine pH 8 (4.5-8.0) Urine Specific Turner 1.010 (1.005-1.035) Urine Protein Negative (NEGATIVE) Urine Glucose (UA) Negative (NEGATIVE) Urine Ketones Negative (NEGATIVE) Urine Blood Negative (NEGATIVE) Urine Nitrite Negative (NEGATIVE) Urine Bilirubin Negative (NEGATIVE) Urine Urobilinogen Normal MG/DL (0.0-1.0) Urine Leukocyte Esterase Negative (NEGATIVE) Last Vital Signs Date Time Temp Pulse Resp B/P (MAP) Pulse Ox O2 Delivery O2 Flow Rate FiO2 03/10/18 13:49 98.0 120 13 155/57 95 Room Air 98.0 Disposition: ADMITTED INPATIENT Condition: Critical Nidia Russell M.D. Mar 10, 2018 14:20
--- NOTE | 2018-03-10 14:32 | Diagnostic Imaging Report ---
Indication: Dyspnea Comparison: 10/24/2017 A single view chest radiograph was obtained. Findings: Interstitial opacities noted diffusely with a prominent central vessels and cardiomegaly. There is a probable left pleural effusion with nonvisualization of the diaphragm and left heart border. Bones are osteopenic. Aorta is calcified. There is callus patient of the mitral annulus likely accounting for the calcific density noted at the left lung base. IMPRESSION: Suspected interstitial edema/CHF and a left pleural effusion.
[2018-03-10 14:44] LABS: BASOPHILS % (AUTO) 1.6 % (0.0-2.0); EOSINOPHILS % (AUTO) 3.6 % (0.0-3.0); HEMATOCRIT 38.6 % (37.0-47.0); HEMOGLOBIN 13.3 G/DL (12.0-16.0); LYMPHOCYTES % (AUTO) 13.9 % (20.0-45.0); MEAN CORPUSCULAR VOLUME 86 FL (80-99); MONOCYTES % (AUTO) 7.6 % (1.0-10.0); NEUTROPHILS % (AUTO) 73.3 % (45.0-75.0); PLATELET COUNT 183 K/UL (150-450); RED BLOOD COUNT 4.51 M/UL (4.20-5.40)
[2018-03-10 15:05] LABS: ALANINE AMINOTRANSFERASE 16 U/L (12-78); ALBUMIN 3.1 G/DL (3.4-5.0); ALBUMIN/GLOBULIN RATIO 0.9 (1.0-2.7); ALKALINE PHOSPHATASE 59 U/L (46-116); ANION GAP 3 mmol/L (5-15); ASPARTATE AMINO TRANSFERASE 12 U/L (15-37); BILIRUBIN,TOTAL 0.4 MG/DL (0.2-1.0); BLOOD UREA NITROGEN 7 mg/dL (7-18); CALCIUM 8.1 MG/DL (8.5-10.1); CARBON DIOXIDE 32 MMOL/L (21-32); CHLORIDE 82 MMOL/L (98-107); CKMB 1.4 NG/ML (0.0-3.6); CREATININE 0.5 MG/DL (0.55-1.30); POTASSIUM 4.4 MMOL/L (3.5-5.1)
[2018-03-10 15:10] LABS: SODIUM 117 MMOL/L (136-145)
[2018-03-10] MEDS ORDERED: Cefepime HCl 2 GM in D5W 55 ML IVPB ONE (15:15)
[2018-03-10] MEDS ORDERED: Vancomycin 1.5gm/D5W 250ml 250 ML IVPB ONE (15:15)
[2018-03-10 15:24] LABS: APPEARANCE,URINE CLEAR; BILIRUBIN, URINE NEGATIVE (NEGATIVE); COLOR,URINE PALE YELLOW; GLUCOSE, URINE (UA) NEGATIVE (NEGATIVE); KETONES,URINE NEGATIVE (NEGATIVE); LEUKOCYTE ESTERASE ,URINE NEGATIVE (NEGATIVE); NITRITE,URINE NEGATIVE (NEGATIVE); PH,URINE 8 (4.5-8.0); PROTEIN,URINE NEGATIVE (NEGATIVE); UROBILINOGEN,URINE NORMAL MG/DL (0.0-1.0)
[2018-03-10] MEDS ORDERED: dilTIAZem HCl 25mg/5ml Inj IVP ONE (15:30)
[2018-03-10 15:45] VITALS: BP 128/76
[2018-03-10 18:16] VITALS: BP 155/61
[2018-03-10] MEDS ORDERED: DEPAKOTE ER250 MG ORAL (19:17)
[2018-03-10] MEDS ORDERED: VOLTAREN100 G1 TP (19:17)
[2018-03-10] MEDS ORDERED: VESICARE10 MG ORAL (19:17)
[2018-03-10] MEDS ORDERED: DUONEB 0.5-3(2.53 ML HHN (19:17)
[2018-03-10 19:54] VITALS: BP 156/76
[2018-03-10] MEDS ORDERED: Morphine Sulfate 2mg/ml Inj IVP PRN (21:15)
[2018-03-10] MEDS ORDERED: LORazepam Inj 2mg/ml 1ml IV PRN (21:15)
[2018-03-10] MEDS ORDERED: Mylanta II UD 30ml ORAL PRN (21:15)
[2018-03-10] MEDS ORDERED: Miralax 17gm pkt ORAL PRN (21:15)
[2018-03-10 21:30] VITALS: BP 150/68
[2018-03-10 21:45] VITALS: BP 158/59
--- NOTE | 2018-03-10 22:51 | Consultation ---
History of Present Illness General Date patient seen: Mar 10, 2018 Chief Complaint: Generalized Weakness Present Illness HPI 77-year-old female with history of hypertension, COPD, atrial flutter, seizure disorder, depression/schizophrenia, history of alcohol abuse, coming from rehabilitation. the pt has been agitated and yelling. the pt has depression and insomnia. no si/hi Allergies: Coded Allergies: PIPERACILLIN (Unverified Allergy, Unknown, 03/10/18) TAZOBACTAM (Unverified Allergy, Unknown, 03/10/18) Medication History Scheduled Al Hydroxide/mg Hydroxide (Mag-Al Plus Suspension), 30 ML PO prn Q6hr, (Reported ) Allopurinol* (Allopurinol*), 100 MG ORAL DAILY Apixaban (Eliquis), 5 MG ORAL BID Atorvastatin Calcium* (Lipitor*), 10 MG ORAL BEDTIME Bisacodyl* (Dulcolax*), 10 MG ORAL PRN daily, (Reported) Bupropion HCl (Wellbutrin), 150 MG ORAL DAILY, (Reported) Cefdinir (Cefdinir), 300 MG PO BID, (Reported) Diclofenac Sodium (Voltaren), 100 GM TP BID, (Reported) Diltiazem Hcl* (Cardizem*), 60 MG ORAL Q6H Divalproex Sodium* (Depakote*), 250 MG PO Q12HR, (Reported) Divalproex Sodium* (Depakote Er*), 250 MG ORAL EVERY 12 HOURS, (Reported) Docusate Sodium* (Docusate Sodium*), 250 MG ORAL DAILY, (Reported) Furosemide* (Lasix*), 40 MG ORAL DAILY, (Reported) Hydralazine HCl (Hydralazine HCl), 25 MG PO Q6HR, (Reported) Lisinopril (Lisinopril*), 5 MG ORAL DAILY, (Reported) Metoprolol Tartrate (Metoprolol Tartrate), 25 MG ORAL Q12HR Mirtazapine* (Mirtazapine*), 15 MG ORAL BEDTIME, (Reported) Multivitamin With Minerals (Multivitamins With Minerals*), 1 TAB ORAL DAILY, ( Reported) Nitrofurantoin Monohyd/M-Cryst* (Macrobid 100 Mg*), 100 MG ORAL EVERY 12 HOURS, (Reported) Nitroglycerin (Nitroglycerin Patch), 1 EACH TD Q6HR, (Reported) [place]-3 Fatty Acids/Fish Oil* (Fish Oil 1,000 Mg Softgel*), 1 CAP ORAL DAILY, ( Reported) Pantoprazole* (Pantoprazole*), 40 MG ORAL DAILY, (Reported) Pseudoephedrine Hcl (Sudogest), 30 MG PO BID, (Reported) Ranitidine Hcl (Ranitidine Hcl), 150 MG ORAL BEDTIME, (Reported) Risperidone* (Risperdal*), 0.5 MG ORAL BID, (Reported) Rivaroxaban (Xarelto*), 10 MG ORAL DAILY, (Reported) Solifenacin Succinate (Vesicare*), 10 MG ORAL DAILY, (Reported) Solifenacin Succinate (Vesicare*), 10 MG ORAL DAILY, (Reported) Trimethoprim/Sulfamethoxazole 160/800* (Bactrim Ds Tablet*), 1 TAB ORAL TWICE A DAY, (Reported) Vancomycin/0.9 % Sod Chloride (Vancomycin-0.9% NaCl 1 G/250), 1 GM IV Q12HR, ( Reported) Scheduled PRN Acetaminophen (Acetaminophen), 650 MG ORAL Q4HR PRN for Mild Pain/Temp > 100.5, (Reported) Bisacodyl (Bisacodyl), 10 MG RC for Constipation, (Reported) Hydrocodone Bit/Acetaminophen 5-325* ([place] 5-325 Tablet*), 1 TAB ORAL Q6HR PRN for For Pain, (Reported) Ipratropium/Albuterol Sulfate (DuoNeb 0.5-3(2.5)mg/3ml), 3 ML HHN EVERY 6 HOURS PRN for Shortness of Breath, (Reported) Polyethylene Glycol 3350* (Miralax*), 17 GM ORAL PRN at bedtime PRN for Constipation, (Reported) Promethazine/Phenyleph/Codeine (Promethazine Vc-Codeine Syrup), 10 ML ORAL Q4H PRN for For Cough, (Reported) Tramadol Hcl* (Ultram*), 50 MG ORAL Q12HR PRN for For Pain, (Reported) Zolpidem Tartrate* (Ambien*), 5 MG ORAL BEDTIME PRN for Insomnia, (Reported) Miscellaneous Medications Dextran 70/Hypromellose (Artificial Tears Eye Drops*), 1 DROP BOTH EYES, ( Reported) Patient History Limited by: medical condition History Provided By: Patient, Medical Record, PMD Healthcare decision maker Resuscitation status Advanced Directive on File Past Medical/Surgical History Past Medical/Surgical History: (1) Anxiety (2) Failure to thrive (3) HTN (hypertension) (4) Recurrent falls (5) onchymycosis (6) Atrial flutter (7) CAD (coronary artery disease) (8) Dementia (9) Hyponatremia (10) Constipation (11) Accelerated hypertension (12) Atrial fibrillation with RVR (13) Pulmonary edema (14) Seizure disorder (15) H/O ETOH abuse (16) Acute diastolic CHF (congestive heart failure) (17) UTI (lower urinary tract infection) (18) COPD (chronic obstructive pulmonary disease) (19) Bipolar depression (20) Cerebral vascular disease (21) Hypovolemic shock (22) Hemorrhagic shock (23) Hypokalemia (24) Gout (25) Bacteremia (26) Gastrointestinal bleeding (27) Major depression (28) Sepsis (29) ATN (acute tubular necrosis) (30) Encephalopathy acute (31) Healthcare-associated pneumonia (32) Wheelchair bound (33) Anemia, chronic disease (34) Acute encephalopathy (35) Intractable back pain (36) Recurrent falls (37) Incontinence in female (38) Respiratory failure, acute (39) Pleural effusion Review of Systems Psychiatric: Reports: prior hx, anxiety, depressed feelings, emotional problems Physical Exam General Appearance: alert, agitated, obese Neurologic: oriented x 3, responsive, depressed affect Last 24 Hour Vital Signs Date Time Temp Pulse Resp B/P (MAP) Pulse Ox O2 Delivery O2 Flow Rate FiO2 03/10/18 21:40 98.2 78 17 150/68 96 Room Air 98.3 03/10/18 21:30 98.2 68 17 150/68 96 Room Air 98.2 03/10/18 19:54 98.3 72 16 156/76 94 Room Air 98.3 03/10/18 18:16 98.0 80 22 155/61 96 Room Air 98.0 03/10/18 15:45 98.2 64 21 128/76 96 Room Air 98.2 03/10/18 15:18 100 180/92 03/10/18 13:49 98.0 120 13 155/57 95 Room Air 98.0 03/10/18 13:21 98.0 76 16 144/90 91 Room Air 98.1 Laboratory Tests Test 03/10/18 14:10 03/10/18 14:21 03/10/18 15:07 White Blood Count 8.0 K/UL (4.8-10.8) Red Blood Count 4.51 M/UL (4.20-5.40) Hemoglobin 13.3 G/DL (12.0-16.0) Hematocrit 38.6 % (37.0-47.0) Mean Corpuscular Volume 86 FL (80-99) Mean Corpuscular Hemoglobin 29.4 PG (27.0-31.0) Mean Corpuscular Hemoglobin Concent 34.4 G/DL (32.0-36.0) Red Cell Distribution Width 13.0 % (11.6-14.8) Platelet Count 183 K/UL (150-450) Mean Platelet Volume 7.1 FL (6.5-10.1) Neutrophils (%) (Auto) 73.3 % (45.0-75.0) Lymphocytes (%) (Auto) 13.9 % (20.0-45.0) L Monocytes (%) (Auto) 7.6 % (1.0-10.0) Eosinophils (%) (Auto) 3.6 % (0.0-3.0) H Basophils (%) (Auto) 1.6 % (0.0-2.0) Sodium Level 117 MMOL/L (136-145) *L Potassium Level 4.4 MMOL/L (3.5-5.1) Chloride Level 82 MMOL/L (98-107) L Carbon Dioxide Level 32 MMOL/L (21-32) Anion Gap 3 mmol/L (5-15) L Blood Urea Nitrogen 7 mg/dL (7-18) Creatinine 0.5 MG/DL (0.55-1.30) L Estimat Glomerular Filtration Rate mL/min (>60) Glucose Level 98 MG/DL (74-106) Calcium Level 8.1 MG/DL (8.5-10.1) L Total Bilirubin 0.4 MG/DL (0.2-1.0) Aspartate Amino Transf (AST/SGOT) 12 U/L (15-37) L Alanine Aminotransferase (ALT/SGPT) 16 U/L (12-78) Alkaline Phosphatase 59 U/L (46-116) Creatine Kinase MB 1.4 NG/ML (0.0-3.6) Troponin I 0.000 ng/mL (0.000-0.056) Total Protein 6.4 G/DL (6.4-8.2) Albumin 3.1 G/DL (3.4-5.0) L Globulin 3.3 g/dL Albumin/Globulin Ratio 0.9 (1.0-2.7) L Thyroid Stimulating Hormone (TSH) 2.957 uiU/mL (0.358-3.740) Prothrombin Time 11.0 SEC (9.30-11.50) Prothromb Time International Ratio 1.0 (0.9-1.1) Activated Partial Thromboplast Time 30 SEC (23-33) Lactic Acid Level 1.30 mmol/L (0.4-2.0) Urine Color Pale yellow Urine Appearance Clear Urine pH 8 (4.5-8.0) Urine Specific [place] 1.010 (1.005-1.035) Urine Protein Negative (NEGATIVE) Urine Glucose (UA) Negative (NEGATIVE) Urine Ketones Negative (NEGATIVE) Urine Blood Negative (NEGATIVE) Urine Nitrite Negative (NEGATIVE) Urine Bilirubin Negative (NEGATIVE) Urine Urobilinogen Normal MG/DL (0.0-1.0) Urine Leukocyte Esterase Negative (NEGATIVE) Height (Feet): 5 Height (Inches): 3.00 Weight (Pounds): 180 Medications Current Medications Medications (Trade) Dose Ordered Sig/Ibrahima Route PRN Reason Start Time Stop Time Status Last Admin Dose Admin Acetaminophen (Tylenol) 650 mg Q4H PRN ORAL fever 03/10/18 21:15 04/09/18 21:14 Al Hydroxide/Mg Hydroxide (Mylanta II) 30 ml Q6H PRN ORAL dyspepsia 03/10/18 21:15 04/09/18 21:14 Allopurinol (Zyloprim) 100 mg DAILY ORAL 03/11/18 09:00 04/10/18 08:59 Apixaban (Eliquis) 5 mg BID ORAL 03/11/18 09:00 04/10/18 08:59 Atorvastatin Calcium (Lipitor) 10 mg BEDTIME ORAL 03/11/18 21:00 04/10/18 20:59 Bupropion HCl (Wellbutrin XL) 150 mg DAILY ORAL 03/11/18 09:00 04/10/18 08:59 Dextrose (Dextrose 50%) STAT PRN IV Hypoglycemia 03/10/18 21:15 04/09/18 21:14 Diltiazem HCl (Cardizem) 60 mg Q6HR ORAL 03/11/18 00:00 04/10/18 00:00 Divalproex Sodium (Depakote ER) 250 mg EVERY 12 HOURS ORAL 03/11/18 09:00 04/10/18 08:59 Furosemide (Lasix) 40 mg DAILY ORAL 03/11/18 09:00 04/10/18 08:59 Hydralazine HCl (Apresoline) 25 mg Q6HR ORAL 03/11/18 00:00 04/10/18 00:00 Lorazepam (Ativan 2mg/ml 1ml) 0.5 mg Q4H PRN IV For Anxiety 03/10/18 21:15 03/17/18 21:14 Mirtazapine (Remeron) 15 mg BEDTIME ORAL 03/10/18 22:00 04/09/18 21:59 Morphine Sulfate (Morphine Sulfate) 1 mg Q4H PRN IVP For Pain 03/10/18 21:15 03/17/18 21:14 Ondansetron HCl (Zofran) 4 mg Q6H PRN IVP Nausea & Vomiting 03/10/18 21:15 04/09/18 21:14 Polyethylene Glycol (Miralax) 17 gm HSPRN PRN ORAL Constipation 03/10/18 21:15 04/09/18 21:14 Risperidone (RisperDAL) 0.5 mg BID ORAL 03/11/18 09:00 04/10/18 08:59 Zolpidem Tartrate (Ambien) 5 mg HSPRN PRN ORAL Insomnia 03/10/18 21:15 03/17/18 21:14 Assessment/Plan Status: stable Assessment/Plan schizoaffective d/o Agitation hx of alcohol abuse. cont outpatient meds Wellbutrin risperdal depakote Luiz Maddox MD Mar 10, 2018 22:51
[2018-03-10] MEDS: dilTIAZem HCl 60mg tab ORAL SCH (23:26)
[2018-03-10] MEDS: HydrALAZINE 25mg tab ORAL SCH (23:26)
[2018-03-11] VITALS: BP 160/89
[2018-03-11] MEDS: Zolpidem 5mg tab ORAL PRN ×2 (01:35→22:05)
[2018-03-11 04:00] VITALS: BP 137/80
[2018-03-11] MEDS: dilTIAZem HCl 60mg tab ORAL SCH ×4 (05:23→23:52)
[2018-03-11] MEDS: HydrALAZINE 25mg tab ORAL SCH ×4 (05:23→23:52)
[2018-03-11 07:14] LABS: BASOPHILS % (AUTO) 1.4 % (0.0-2.0); EOSINOPHILS % (AUTO) 2.4 % (0.0-3.0); HEMATOCRIT 37.6 % (37.0-47.0); HEMOGLOBIN 12.9 G/DL (12.0-16.0); LYMPHOCYTES % (AUTO) 10.7 % (20.0-45.0); MEAN CORPUSCULAR VOLUME 85 FL (80-99); MONOCYTES % (AUTO) 7.8 % (1.0-10.0); NEUTROPHILS % (AUTO) 77.7 % (45.0-75.0); PLATELET COUNT 172 K/UL (150-450); RED BLOOD COUNT 4.43 M/UL (4.20-5.40); RED CELL DISTRIBUTION WIDTH 12.9 % (11.6-14.8); WHITE BLOOD COUNT 9.1 K/UL (4.8-10.8)
[2018-03-11 07:42] LABS: ALANINE AMINOTRANSFERASE 10 U/L (12-78); ALBUMIN/GLOBULIN RATIO 0.9 (1.0-2.7); ALKALINE PHOSPHATASE 58 U/L (46-116); ANION GAP 7 mmol/L (5-15); ASPARTATE AMINO TRANSFERASE 13 U/L (15-37); BILIRUBIN,TOTAL 0.4 MG/DL (0.2-1.0); BLOOD UREA NITROGEN 5 mg/dL (7-18); CARBON DIOXIDE 27 MMOL/L (21-32); CHLORIDE 79 MMOL/L (98-107); CHOLESTEROL 173 MG/DL (< 200); CREATININE 0.4 MG/DL (0.55-1.30); HDL CHOLESTEROL 51 MG/DL (40-60); POTASSIUM 4.3 MMOL/L (3.5-5.1); TRIGLYCERIDES 53 MG/DL (30-150)
[2018-03-11 07:45] LABS: SODIUM 112 MMOL/L (136-145)
[2018-03-11 08:00] VITALS: BP 138/61
[2018-03-11] MEDS ORDERED: Furosemide 40mg tab ORAL SCH (09:00)
[2018-03-11] MEDS ORDERED: Allopurinol 100mg Tab ORAL SCH (09:00)
[2018-03-11] MEDS ORDERED: Depakote ER 250mg tab ORAL SCH (09:00)
[2018-03-11] MEDS ORDERED: BuPROPion XL 150mg tab ORAL SCH (09:00)
[2018-03-11] MEDS: Eliquis 2.5mg tablet ORAL SCH ×2 (09:05→18:44)
[2018-03-11] MEDS: NACL 3% IV SCH (09:50)
--- NOTE | 2018-03-11 11:34 | Consultation ---
History of Present Illness General Date patient seen: Mar 11, 2018 Chief Complaint: Generalized Weakness Reason for Consultation: inpatient management Present Illness HPI 77-year-old female, history of hypertension, COPD, atrial flutter, seizure disorder, depression/schizophrenia, history of alcohol abuse, coming from rehabilitation [facility] for generalized weakness. Patient states that for the last few days she has been sleeping more than usual, says that she feels depressed. Patient does state that she has slight shortness of breath. Initial laboratory showed that her Na is 117. She is admitted for further management. Allergies: Coded Allergies: PIPERACILLIN (Unverified Allergy, Unknown, 03/10/18) TAZOBACTAM (Unverified Allergy, Unknown, 03/10/18) Medication History Scheduled Al Hydroxide/mg Hydroxide (Mag-Al Plus Suspension), 30 ML PO prn Q6hr, (Reported ) Allopurinol* (Allopurinol*), 100 MG ORAL DAILY Apixaban (Eliquis), 5 MG ORAL BID Atorvastatin Calcium* (Lipitor*), 10 MG ORAL BEDTIME Bisacodyl* (Dulcolax*), 10 MG ORAL PRN daily, (Reported) Bupropion HCl (Wellbutrin), 150 MG ORAL DAILY, (Reported) Cefdinir (Cefdinir), 300 MG PO BID, (Reported) Diclofenac Sodium (Voltaren), 100 GM TP BID, (Reported) Diltiazem Hcl* (Cardizem*), 60 MG ORAL Q6H Divalproex Sodium* (Depakote*), 250 MG PO Q12HR, (Reported) Divalproex Sodium* (Depakote Er*), 250 MG ORAL EVERY 12 HOURS, (Reported) Docusate Sodium* (Docusate Sodium*), 250 MG ORAL DAILY, (Reported) Furosemide* (Lasix*), 40 MG ORAL DAILY, (Reported) Hydralazine HCl (Hydralazine HCl), 25 MG PO Q6HR, (Reported) Lisinopril (Lisinopril*), 5 MG ORAL DAILY, (Reported) Metoprolol Tartrate (Metoprolol Tartrate), 25 MG ORAL Q12HR Mirtazapine* (Mirtazapine*), 15 MG ORAL BEDTIME, (Reported) Multivitamin With Minerals (Multivitamins With Minerals*), 1 TAB ORAL DAILY, ( Reported) Nitrofurantoin Monohyd/M-Cryst* (Macrobid 100 Mg*), 100 MG ORAL EVERY 12 HOURS, (Reported) Nitroglycerin (Nitroglycerin Patch), 1 EACH TD Q6HR, (Reported) [place]-3 Fatty Acids/Fish Oil* (Fish Oil 1,000 Mg Softgel*), 1 CAP ORAL DAILY, ( Reported) Pantoprazole* (Pantoprazole*), 40 MG ORAL DAILY, (Reported) Pseudoephedrine Hcl (Sudogest), 30 MG PO BID, (Reported) Ranitidine Hcl (Ranitidine Hcl), 150 MG ORAL BEDTIME, (Reported) Risperidone* (Risperdal*), 0.5 MG ORAL BID, (Reported) Rivaroxaban (Xarelto*), 10 MG ORAL DAILY, (Reported) Solifenacin Succinate (Vesicare*), 10 MG ORAL DAILY, (Reported) Solifenacin Succinate (Vesicare*), 10 MG ORAL DAILY, (Reported) Trimethoprim/Sulfamethoxazole 160/800* (Bactrim Ds Tablet*), 1 TAB ORAL TWICE A DAY, (Reported) Vancomycin/0.9 % Sod Chloride (Vancomycin-0.9% NaCl 1 G/250), 1 GM IV Q12HR, ( Reported) Scheduled PRN Acetaminophen (Acetaminophen), 650 MG ORAL Q4HR PRN for Mild Pain/Temp > 100.5, (Reported) Bisacodyl (Bisacodyl), 10 MG RC for Constipation, (Reported) Hydrocodone Bit/Acetaminophen 5-325* ([place] 5-325 Tablet*), 1 TAB ORAL Q6HR PRN for For Pain, (Reported) Ipratropium/Albuterol Sulfate (DuoNeb 0.5-3(2.5)mg/3ml), 3 ML HHN EVERY 6 HOURS PRN for Shortness of Breath, (Reported) Polyethylene Glycol 3350* (Miralax*), 17 GM ORAL PRN at bedtime PRN for Constipation, (Reported) Promethazine/Phenyleph/Codeine (Promethazine Vc-Codeine Syrup), 10 ML ORAL Q4H PRN for For Cough, (Reported) Tramadol Hcl* (Ultram*), 50 MG ORAL Q12HR PRN for For Pain, (Reported) Zolpidem Tartrate* (Ambien*), 5 MG ORAL BEDTIME PRN for Insomnia, (Reported) Miscellaneous Medications Dextran 70/Hypromellose (Artificial Tears Eye Drops*), 1 DROP BOTH EYES, ( Reported) Patient History Healthcare decision maker Resuscitation status Full Code Advanced Directive on File No Family History Family History: (1) Anemia, chronic disease (2) Wheelchair bound (3) Major depression (4) Cerebral vascular disease (5) Bipolar depression (6) COPD (chronic obstructive pulmonary disease) (7) H/O ETOH abuse (8) Seizure disorder (9) Dementia (10) Anxiety (11) CAD (coronary artery disease) Review of Systems Constitutional: Reports: malaise, weakness Eye: Reports: no symptoms ENT: Reports: hearing loss Gastrointestinal: Reports: no symptoms Genitourinary: Reports: no symptoms Physical Exam General Appearance: WD/WN Lines, tubes and drains: peripheral HEENT: normocephalic, atraumatic Neck: non-tender, normal alignment Respiratory/Chest: chest wall non-tender, rhonchi - left, rhonchi - right Breasts: no masses Cardiovascular/Chest: normal peripheral pulses Abdomen: normal bowel sounds Genitourinary/Rectal: normal genital exam Extremities: normal range of motion Skin Exam: normal pigmentation 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 Lymphatic: anterior cervical Last 24 Hour Vital Signs Date Time Temp Pulse Resp B/P (MAP) Pulse Ox O2 Delivery O2 Flow Rate FiO2 03/11/18 08:00 98.1 67 20 138/61 (86) 93 98.1 03/11/18 08:00 60 03/11/18 05:23 137/80 03/11/18 05:23 93 137/80 03/11/18 04:00 97.0 91 20 137/80 (99) 92 97.0 03/11/18 04:00 92 03/11/18 00:00 98 03/11/18 00:00 97.0 79 20 160/89 (112) 92 97.0 03/10/18 23:26 158/59 03/10/18 23:26 90 158/59 03/10/18 23:00 Room Air 03/10/18 21:45 97 03/10/18 21:45 97.5 97 20 158/59 (92) 92 97.5 03/10/18 21:40 98.2 78 17 150/68 96 Room Air 98.3 03/10/18 21:30 98.2 68 17 150/68 96 Room Air 98.2 03/10/18 19:54 98.3 72 16 156/76 94 Room Air 98.3 03/10/18 18:16 98.0 80 22 155/61 96 Room Air 98.0 03/10/18 15:45 98.2 64 21 128/76 96 Room Air 98.2 03/10/18 15:18 100 180/92 03/10/18 13:49 98.0 120 13 155/57 95 Room Air 98.0 03/10/18 13:21 98.0 76 16 144/90 91 Room Air 98.1 Intake and Output 03/10/18 03/11/18 19:00 07:00 Intake Total 250 ml Output Total 0 ml Balance 0 ml 250 ml Intake Oral 250 ml Output Urine Total 0 ml # Voids 2 Laboratory Tests Test 03/10/18 14:10 03/10/18 14:21 03/10/18 15:07 03/11/18 06:27 White Blood Count 8.0 K/UL (4.8-10.8) 9.1 K/UL (4.8-10.8) Red Blood Count 4.51 M/UL (4.20-5.40) 4.43 M/UL (4.20-5.40) Hemoglobin 13.3 G/DL (12.0-16.0) 12.9 G/DL (12.0-16.0) Hematocrit 38.6 % (37.0-47.0) 37.6 % (37.0-47.0) Mean Corpuscular Volume 86 FL (80-99) 85 FL (80-99) Mean Corpuscular Hemoglobin 29.4 PG (27.0-31.0) 29.2 PG (27.0-31.0) Mean Corpuscular Hemoglobin Concent 34.4 G/DL (32.0-36.0) 34.4 G/DL (32.0-36.0) Red Cell Distribution Width 13.0 % (11.6-14.8) 12.9 % (11.6-14.8) Platelet Count 183 K/UL (150-450) 172 K/UL (150-450) Mean Platelet Volume 7.1 FL (6.5-10.1) 6.8 FL (6.5-10.1) Neutrophils (%) (Auto) 73.3 % (45.0-75.0) 77.7 % (45.0-75.0) H Lymphocytes (%) (Auto) 13.9 % (20.0-45.0) L 10.7 % (20.0-45.0) L Monocytes (%) (Auto) 7.6 % (1.0-10.0) 7.8 % (1.0-10.0) Eosinophils (%) (Auto) 3.6 % (0.0-3.0) H 2.4 % (0.0-3.0) Basophils (%) (Auto) 1.6 % (0.0-2.0) 1.4 % (0.0-2.0) Sodium Level 117 MMOL/L (136-145) *L 112 MMOL/L (136-145) *L Potassium Level 4.4 MMOL/L (3.5-5.1) 4.3 MMOL/L (3.5-5.1) Chloride Level 82 MMOL/L (98-107) L 79 MMOL/L (98-107) L Carbon Dioxide Level 32 MMOL/L (21-32) 27 MMOL/L (21-32) Anion Gap 3 mmol/L (5-15) L 7 mmol/L (5-15) Blood Urea Nitrogen 7 mg/dL (7-18) 5 mg/dL (7-18) L Creatinine 0.5 MG/DL (0.55-1.30) L 0.4 MG/DL (0.55-1.30) L Estimat Glomerular Filtration Rate mL/min (>60) mL/min (>60) Glucose Level 98 MG/DL (74-106) 92 MG/DL (74-106) Calcium Level 8.1 MG/DL (8.5-10.1) L 8.0 MG/DL (8.5-10.1) L Total Bilirubin 0.4 MG/DL (0.2-1.0) 0.4 MG/DL (0.2-1.0) Aspartate Amino Transf (AST/SGOT) 12 U/L (15-37) L 13 U/L (15-37) L Alanine Aminotransferase (ALT/SGPT) 16 U/L (12-78) 10 U/L (12-78) L Alkaline Phosphatase 59 U/L (46-116) 58 U/L (46-116) Creatine Kinase MB 1.4 NG/ML (0.0-3.6) Troponin I 0.000 ng/mL (0.000-0.056) Total Protein 6.4 G/DL (6.4-8.2) 6.4 G/DL (6.4-8.2) Albumin 3.1 G/DL (3.4-5.0) L 3.0 G/DL (3.4-5.0) L Globulin 3.3 g/dL 3.4 g/dL Albumin/Globulin Ratio 0.9 (1.0-2.7) L 0.9 (1.0-2.7) L Thyroid Stimulating Hormone (TSH) 2.957 uiU/mL (0.358-3.740) 2.206 uiU/mL (0.358-3.740) Prothrombin Time 11.0 SEC (9.30-11.50) Prothromb Time International Ratio 1.0 (0.9-1.1) Activated Partial Thromboplast Time 30 SEC (23-33) Lactic Acid Level 1.30 mmol/L (0.4-2.0) Urine Color Pale yellow Urine Appearance Clear Urine pH 8 (4.5-8.0) Urine Specific [place] 1.010 (1.005-1.035) Urine Protein Negative (NEGATIVE) Urine Glucose (UA) Negative (NEGATIVE) Urine Ketones Negative (NEGATIVE) Urine Blood Negative (NEGATIVE) Urine Nitrite Negative (NEGATIVE) Urine Bilirubin Negative (NEGATIVE) Urine Urobilinogen Normal MG/DL (0.0-1.0) Urine Leukocyte Esterase Negative (NEGATIVE) Triglycerides Level 53 MG/DL (30-150) Cholesterol Level 173 MG/DL (< 200) LDL Cholesterol 104 mg/dL (<100) H HDL Cholesterol 51 MG/DL (40-60) Cholesterol/HDL Ratio 3.4 (3.3-4.4) Height (Feet): 5 Height (Inches): 3.00 Weight (Pounds): 189 Medications Current Medications Medications (Trade) Dose Ordered Sig/Ibrahima Route PRN Reason Start Time Stop Time Status Last Admin Dose Admin Acetaminophen (Tylenol) 650 mg Q4H PRN ORAL fever 03/10/18 21:15 04/09/18 21:14 Al Hydroxide/Mg Hydroxide (Mylanta II) 30 ml Q6H PRN ORAL dyspepsia 03/10/18 21:15 04/09/18 21:14 Allopurinol (Zyloprim) 100 mg DAILY ORAL 03/11/18 09:00 04/10/18 08:59 03/11/18 09:06 Apixaban (Eliquis) 5 mg BID ORAL 03/11/18 09:00 04/10/18 08:59 03/11/18 09:05 Atorvastatin Calcium (Lipitor) 10 mg BEDTIME ORAL 03/11/18 21:00 04/10/18 20:59 Bupropion HCl (Wellbutrin XL) 150 mg DAILY ORAL 03/11/18 09:00 04/10/18 08:59 03/11/18 09:07 Dextrose (Dextrose 50%) STAT PRN IV Hypoglycemia 03/10/18 21:15 04/09/18 21:14 Diltiazem HCl (Cardizem) 60 mg Q6HR ORAL 03/11/18 00:00 04/10/18 00:00 03/11/18 05:23 Divalproex Sodium (Depakote ER) 250 mg EVERY 12 HOURS ORAL 03/11/18 09:00 04/10/18 08:59 03/11/18 09:06 Furosemide (Lasix) 40 mg DAILY ORAL 03/11/18 09:00 04/10/18 08:59 03/11/18 09:06 Hydralazine HCl (Apresoline) 25 mg Q6HR ORAL 03/11/18 00:00 04/10/18 00:00 03/11/18 05:23 Lorazepam (Ativan 2mg/ml 1ml) 0.5 mg Q4H PRN IV For Anxiety 03/10/18 21:15 03/17/18 21:14 Mirtazapine (Remeron) 15 mg BEDTIME ORAL 03/10/18 22:00 04/09/18 21:59 03/10/18 23:25 Morphine Sulfate (Morphine Sulfate) 1 mg Q4H PRN IVP For Pain 03/10/18 21:15 03/17/18 21:14 Ondansetron HCl (Zofran) 4 mg Q6H PRN IVP Nausea & Vomiting 03/10/18 21:15 04/09/18 21:14 Polyethylene Glycol (Miralax) 17 gm HSPRN PRN ORAL Constipation 03/10/18 21:15 04/09/18 21:14 Risperidone (RisperDAL) 0.5 mg BID ORAL 03/11/18 09:00 04/10/18 08:59 03/11/18 09:07 Sodium Chloride 1,000 ml @ 30 mls/hr ONCE IV 03/11/18 09:00 03/12/18 21:00 03/11/18 09:50 Zolpidem Tartrate (Ambien) 5 mg HSPRN PRN ORAL Insomnia 03/10/18 21:15 03/17/18 21:14 03/11/18 01:35 Assessment/Plan Problem List: (1) Encephalopathy acute ICD Codes: G93.40 - Encephalopathy, unspecified SNOMED: 8962100 (2) Hyponatremia ICD Codes: E87.1 - Hyponatremia SNOMED: 01200664 (3) Seizure disorder ICD Codes: G40.909 - Seizure disorder SNOMED: 027883690 (4) HTN (hypertension) ICD Codes: I10 - Hypertension SNOMED: 42608675 (5) Anemia, chronic disease ICD Codes: D63.8 - Anemia in other chronic diseases classified elsewhere SNOMED: 066721962 (6) Major depression ICD Codes: F32.9 - Major depressive disorder, single episode, unspecified SNOMED: 02948678, [id number] Assessment/Plan 3% at 30 cc/hour check electrolytes check Tsh, cortisol level resume psych meds monitor BP symptomatic treatment. Mendel Sierra MD Mar 11, 2018 11:34
[2018-03-11 12:00] VITALS: BP 141/74
[2018-03-11] MEDS ORDERED: LORazepam Inj 2mg/ml 1ml IV PRN (12:00)
--- NOTE | 2018-03-11 12:04 | General Progress Note ---
Assessment/Plan Status: stable, progressing Assessment/Plan schizoaffective d/o Agitation hx of alcohol abuse. dc Wellbutrin increase Risperdal 2mg qhs cont Depakote increase Ativan Subjective Date patient seen: Mar 11, 2018 Neurologic/Psychiatric: Reports: anxiety, depressed, emotional problems Allergies: Coded Allergies: PIPERACILLIN (Unverified Allergy, Unknown, 03/10/18) TAZOBACTAM (Unverified Allergy, Unknown, 03/10/18) Objective Last 24 Hour Vital Signs Date Time Temp Pulse Resp B/P (MAP) Pulse Ox O2 Delivery O2 Flow Rate FiO2 03/11/18 08:00 98.1 67 20 138/61 (86) 93 98.1 03/11/18 08:00 60 03/11/18 05:23 137/80 03/11/18 05:23 93 137/80 03/11/18 04:00 97.0 91 20 137/80 (99) 92 97.0 03/11/18 04:00 92 03/11/18 00:00 98 03/11/18 00:00 97.0 79 20 160/89 (112) 92 97.0 03/10/18 23:26 158/59 03/10/18 23:26 90 158/59 03/10/18 23:00 Room Air 03/10/18 21:45 97 03/10/18 21:45 97.5 97 20 158/59 (92) 92 97.5 03/10/18 21:40 98.2 78 17 150/68 96 Room Air 98.3 03/10/18 21:30 98.2 68 17 150/68 96 Room Air 98.2 03/10/18 19:54 98.3 72 16 156/76 94 Room Air 98.3 03/10/18 18:16 98.0 80 22 155/61 96 Room Air 98.0 03/10/18 15:45 98.2 64 21 128/76 96 Room Air 98.2 03/10/18 15:18 100 180/92 03/10/18 13:49 98.0 120 13 155/57 95 Room Air 98.0 03/10/18 13:21 98.0 76 16 144/90 91 Room Air 98.1 Intake and Output 03/10/18 03/11/18 19:00 07:00 Intake Total 250 ml Output Total 0 ml Balance 0 ml 250 ml Intake Oral 250 ml Output Urine Total 0 ml # Voids 2 Laboratory Tests 03/10/18 14:10: White Blood Count 8.0, Red Blood Count 4.51, Hemoglobin 13.3, Hematocrit 38.6, Mean Corpuscular Volume 86, Mean Corpuscular Hemoglobin 29.4, Mean Corpuscular Hemoglobin Concent 34.4, Red Cell Distribution Width 13.0, Platelet Count 183, Mean Platelet Volume 7.1, Neutrophils (%) (Auto) 73.3, Lymphocytes (%) (Auto) 13.9L, Monocytes (%) (Auto) 7.6, Eosinophils (%) (Auto) 3.6H, Basophils (%) ( Auto) 1.6, Sodium Level 117*L, Potassium Level 4.4, Chloride Level 82L, Carbon Dioxide Level 32, Anion Gap 3L, Blood Urea Nitrogen 7, Creatinine 0.5L, Estimat Glomerular Filtration Rate , Glucose Level 98, Calcium Level 8.1L, Total Bilirubin 0.4, Aspartate Amino Transf (AST/SGOT) 12L, Alanine Aminotransferase ( ALT/SGPT) 16, Alkaline Phosphatase 59, Creatine Kinase MB 1.4, Troponin I 0.000 , Total Protein 6.4, Albumin 3.1L, Globulin 3.3, Albumin/Globulin Ratio 0.9L, Thyroid Stimulating Hormone (TSH) 2.957 03/10/18 14:21: Prothrombin Time 11.0, Prothromb Time International Ratio 1.0, Activated Partial Thromboplast Time 30, Lactic Acid Level 1.30 03/10/18 15:07: Urine Color Pale yellow, Urine Appearance Clear, Urine pH 8, Urine Specific [place] 1.010, Urine Protein Negative, Urine Glucose (UA) Negative, Urine Ketones Negative, Urine Blood Negative, Urine Nitrite Negative, Urine Bilirubin Negative, Urine Urobilinogen Normal, Urine Leukocyte Esterase Negative 03/11/18 06:27: White Blood Count 9.1, Red Blood Count 4.43, Hemoglobin 12.9, Hematocrit 37.6, Mean Corpuscular Volume 85, Mean Corpuscular Hemoglobin 29.2, Mean Corpuscular Hemoglobin Concent 34.4, Red Cell Distribution Width 12.9, Platelet Count 172, Mean Platelet Volume 6.8, Neutrophils (%) (Auto) 77.7H, Lymphocytes (%) (Auto) 10.7L, Monocytes (%) (Auto) 7.8, Eosinophils (%) (Auto) 2.4, Basophils (%) (Auto ) 1.4, Sodium Level 112*L, Potassium Level 4.3, Chloride Level 79L, Carbon Dioxide Level 27, Anion Gap 7, Blood Urea Nitrogen 5L, Creatinine 0.4L, Estimat Glomerular Filtration Rate , Glucose Level 92, Calcium Level 8.0L, Total Bilirubin 0.4, Aspartate Amino Transf (AST/SGOT) 13L, Alanine Aminotransferase ( ALT/SGPT) 10L, Alkaline Phosphatase 58, Total Protein 6.4, Albumin 3.0L, Globulin 3.4, Albumin/Globulin Ratio 0.9L, Thyroid Stimulating Hormone (TSH) 2.206, Triglycerides Level 53, Cholesterol Level 173, LDL Cholesterol 104H, HDL Cholesterol 51, Cholesterol/HDL Ratio 3.4 Height (Feet): 5 Height (Inches): 3.00 Weight (Pounds): 189 General Appearance: no apparent distress, alert Neurologic: oriented x 3, responsive, depressed affect Luiz Morrison MD Mar 11, 2018 12:04
--- NOTE | 2018-03-11 12:13 | History & Physical ---
History and Physical History & Physicial Dictated for Int Med-Dr Mendoza no. [id number]. Juan Dutta MD Mar 11, 2018 12:13
--- NOTE | 2018-03-11 14:37 | Consultation ---
Consult Note Consult Note Hyponatremia 77-year-old female, history of hypertension, COPD, atrial flutter, seizure disorder, depression/schizophrenia, history of alcohol abuse, coming from [facility] for generalized weakness. Patient states that for the last few days she has been sleeping more than usual, says that she feels depressed. Also says that she feels generally weak. Denies any suicidal or homicidal ideation. Says that she has been eating and drinking slightly. Denies any actual pain no headache no blurry vision or chest pain. Patient does state that she has slight shortness of breath. No nausea vomiting diarrhea or abdominal pain Allergies: Coded Allergies: NO KNOWN DRUG ALLERGIES (Unverified Allergy, Unknown, 07/11/15) PIPERACILLIN (Unverified Allergy, Unknown, 03/10/18) TAZOBACTAM (Unverified Allergy, Unknown, 03/10/18) Past Medical History: No History, Except For Hx Cardiac Problems: Yes Hx Hypertension: Yes Hx Pacemaker: No - stent Hx Asthma: No Hx COPD: Yes Hx Gastrointestinal Problems: Yes Hx Neurological Problems: Yes Hx Cerebrovascular Accident: Yes Hx Dementia: Yes Hx Seizures: Yes - epilepsy Hx Tremors: Yes Hx Vertigo: Yes Hx Dizziness: Yes Hx Syncope: Yes Hx Headaches: Yes - occasional Hx Weakness: Yes Hx Fatigue: Yes Assessment/Plan Hyponatremia etiology ? Plan: check Uric acid check Serum Os check Urine Os check [place] 3% Saline and Lasix PO fluid restriction Danilo Hercules MD Mar 11, 2018 14:37
[2018-03-11] MEDS ORDERED: NaCl 3% 500ml 500 ML IV ONE (14:45)
[2018-03-11 16:00] VITALS: BP 130/61
[2018-03-11 16:19] LABS: PHOSPHORUS 4.1 MG/DL (2.5-4.9)
[2018-03-11 20:00] VITALS: BP 133/53
--- NOTE | 2018-03-11 20:30 | History and Physical Report ---
DATE OF ADMISSION: 03/10/2018 CHIEF COMPLAINT: The patient is a 77-year-old white female who presents with chief complaint of generalized weakness. HISTORY OF PRESENT ILLNESS: The patient is a resident of [facility]. According to staff at [facility], the patient has been experiencing generalized weakness. The patient usually is mobile. The patient was not able to get out of bed. The patient presented to [facility]. The patient is admitted for generalized weakness to rule out acute cerebrovascular accident versus urinary tract infection. REVIEW OF SYSTEMS: Unable to assess secondary to the patient's mental status. PAST MEDICAL HISTORY: Significant for: 1. Major depression. 2. Schizophrenia. 3. Chronic obstructive pulmonary disease. 4. Hypertension. 5. Seizure disorder. 6. History of deep venous thrombosis of the left leg. PAST SURGICAL HISTORY: Unknown. CURRENT MEDICATIONS: 1. Tylenol 650 mg p.o. q.4 hours p.r.n. 2. Allopurinol 100 mg p.o. daily. 3. Eliquis 5 mg p.o. twice daily. 4. Atorvastatin 10 mg p.o. nightly. 5. Wellbutrin 150 mg p.o. daily. 6. Diclofenac 100 mg p.o. twice daily. 7. Diltiazem 60 mg p.o. q.6 hours. 8. Depakote 250 mg p.o. twice daily. 9. Furosemide 40 mg p.o. daily. 10. Hydralazine 25 mg p.o. q.6 hours. 11. [place] 5/325 one tablet p.o. q.6 hours p.r.n. 12. Ipratropium. 13. DuoNeb nebulized q.6 hours p.r.n. 14. Lisinopril 5 mg p.o. daily. 15. Metoprolol 25 mg p.o. twice daily. 16. Mirtazapine 15 mg p.o. nightly. 17. Nitroglycerin patch apply q.24 hours . 18. Protonix 40 mg p.o. daily. 19. Sudafed 30 mg p.o. twice daily. 20. Ranitidine 150 mg p.o. nightly. 21. VESIcare 10 mg p.o. daily. 22. Tramadol 50 mg p.o. twice daily p.r.n. ALLERGIES: To penicillin and tazobactam. SOCIAL HISTORY: The patient is a resident of [facility]. The patient denies tobacco use. The patient does have history of alcohol abuse. PHYSICAL EXAMINATION: VITAL SIGNS: Temperature 98.0, respirations 16, pulse 76, blood pressure 144/90. GENERAL: The patient is a well-developed, well-nourished white female, in no apparent distress. HEENT: Eyes, pupils equal and responsive to light and accommodation. Extraocular movements are intact. NECK: Supple without lymphadenopathy. CHEST: Lungs are clear to auscultation bilaterally without wheezes or rales. CARDIOVASCULAR: Regular rate. S1, S2 are normal without murmurs, rubs, or gallops. ABDOMEN: Soft, nontender, and nondistended. Positive bowel sounds. No evidence of hepatosplenomegaly. Currently, no rebound or guarding noted. EXTREMITIES: Negative for clubbing, cyanosis, or edema. RECTAL: Refused. GENITAL: Refused. NEUROLOGIC: Cranial nerves II through XII are grossly intact without focal deficits. LABORATORY STUDIES: A chest x-ray revealed interstitial edema consistent with congestive heart failure. WBC 8.0, hemoglobin 13.3, hematocrit 38.6, platelets 183,000. Sodium 117, potassium 4.4, chloride 82, CO2 32, BUN 7, creatinine 0.5, glucose 98. Urinalysis was within normal limits. ASSESSMENT: This is a 77-year-old white female with: 1. Hyponatremia. 2. Generalized weakness. 3. Depression. 4. Schizophrenia. 5. Chronic obstructive pulmonary disease. 6. Hypertension. 7. Seizure disorder. 8. History of deep venous thrombosis of the left leg. TREATMENT: 1. Hyponatremia. The patient is currently receiving intravenous fluids. Nephrology consultation has been obtained with Dr. Huber. Differential includes serum of inappropriate ADH secretion versus antihypertensive medication. 2. Generalized weakness. This is probably secondary to hyponatremia as above. 3. Major depression/schizoaffective. A psychiatric consultation has been obtained with Dr. Morrison. 4. Chronic obstructive pulmonary disease. Continue DuoNebs as above. 5. Hypertension. Continue hydralazine, lisinopril, metoprolol, and diltiazem as above. 6. Seizure disorder. Continue Depakote as above. 7. Deep venous thrombosis. Continue Eliquis as above. Juan Dutta M.D. DR: Boo JOB#: [id number] CC:
[2018-03-11] MEDS ORDERED: Albuterol/Ipratropium 3ml neb HHN PRN (23:30)
[2018-03-12] VITALS: BP 118/62
[2018-03-12 04:00] VITALS: BP 125/68
[2018-03-12] MEDS ORDERED: Isovue-370 150ml vial INJ PRN (05:00)
[2018-03-12] MEDS: HydrALAZINE 25mg tab ORAL SCH ×2 (06:00→12:52)
[2018-03-12] MEDS: dilTIAZem HCl 60mg tab ORAL SCH ×2 (06:00→12:51)
[2018-03-12 07:24] LABS: BASOPHILS % (AUTO) 1.1 % (0.0-2.0); EOSINOPHILS % (AUTO) 1.4 % (0.0-3.0); HEMATOCRIT 36.6 % (37.0-47.0); HEMOGLOBIN 12.7 G/DL (12.0-16.0); LYMPHOCYTES % (AUTO) 6.8 % (20.0-45.0); MEAN CORPUSCULAR VOLUME 87 FL (80-99); MONOCYTES % (AUTO) 7.1 % (1.0-10.0); NEUTROPHILS % (AUTO) 83.6 % (45.0-75.0); PLATELET COUNT 165 K/UL (150-450); RED BLOOD COUNT 4.21 M/UL (4.20-5.40); RED CELL DISTRIBUTION WIDTH 13.6 % (11.6-14.8); WHITE BLOOD COUNT 9.9 K/UL (4.8-10.8)
[2018-03-12 08:00] VITALS: BP 131/62
[2018-03-12 08:22] LABS: ALANINE AMINOTRANSFERASE 17 U/L (12-78); ALBUMIN/GLOBULIN RATIO 0.9 (1.0-2.7); ALKALINE PHOSPHATASE 61 U/L (46-116); ANION GAP 2 mmol/L (5-15); ASPARTATE AMINO TRANSFERASE 9 U/L (15-37); BILIRUBIN,TOTAL 0.4 MG/DL (0.2-1.0); BLOOD UREA NITROGEN 8 mg/dL (7-18); CARBON DIOXIDE 33 MMOL/L (21-32); CHLORIDE 89 MMOL/L (98-107); POTASSIUM 4.1 MMOL/L (3.5-5.1); SODIUM 124 MMOL/L (136-145)
[2018-03-12 08:28] LABS: CALCIUM 8.5 MG/DL (8.5-10.1); CREATININE 0.6 MG/DL (0.55-1.30)
[2018-03-12] MEDS: Eliquis 2.5mg tablet ORAL SCH ×2 (09:18→18:03)
[2018-03-12] MEDS: NACL 3% IV SCH (09:19)
--- NOTE | 2018-03-12 10:36 | General Progress Note ---
Assessment/Plan Status: stable, progressing Assessment/Plan schizoaffective d/o Agitation hx of alcohol abuse. increase Risperdal 2mg qhs cont Depakote increase Ativan provided st/ro Subjective Date patient seen: Mar 12, 2018 Neurologic/Psychiatric: Reports: anxiety, depressed, emotional problems Allergies: Coded Allergies: PIPERACILLIN (Unverified Allergy, Unknown, 03/10/18) TAZOBACTAM (Unverified Allergy, Unknown, 03/10/18) Subjective she is not wearing the bipap. the pts agitation is improved. she stated that she has depression and feeling "awful." Objective Last 24 Hour Vital Signs Date Time Temp Pulse Resp B/P (MAP) Pulse Ox O2 Delivery O2 Flow Rate FiO2 03/12/18 08:09 95 Venturi Mask 10.0 45 03/12/18 08:09 85 20 Venturi Mask 10.0 45 03/12/18 08:09 Venturi Mask 10.0 45 03/12/18 06:00 125/68 03/12/18 06:00 93 125/68 03/12/18 04:00 93 03/12/18 04:00 98.4 96 19 125/68 (87) 96 98.4 03/12/18 00:00 93 03/12/18 00:00 98.2 93 24 118/62 (80) 93 98.2 03/11/18 23:52 121/68 03/11/18 23:52 90 121/68 03/11/18 22:54 90 20 Venturi Mask 10.0 45 03/11/18 22:52 Venturi Mask 10.0 45 03/11/18 22:52 96 Venturi Mask 10.0 45 03/11/18 21:00 Room Air 03/11/18 20:00 111 03/11/18 20:00 98.3 82 22 133/53 (79) 91 98.3 03/11/18 18:46 130/61 03/11/18 18:45 114 130/61 03/11/18 16:00 114 03/11/18 16:00 98.2 62 20 130/61 (84) 95 98.2 03/11/18 12:18 141/74 03/11/18 12:18 94 141/74 03/11/18 12:00 97 03/11/18 12:00 98.1 94 20 141/74 (96) 94 98.1 Intake and Output 03/11/18 03/12/18 19:00 07:00 Intake Total 360 ml 120 ml Output Total 300 ml 625 ml Balance 60 ml -505 ml Intake Oral 360 ml 120 ml Output Urine Total 300 ml 625 ml # Voids 2 # Bowel Movements 1 1 Laboratory Tests 03/11/18 15:35: Osmolality 292L, Uric Acid 2.9, Phosphorus Level 4.1, Magnesium Level 1.6L 03/11/18 16:00: Urine Osmolality 199L, Urine Random Sodium 51 03/11/18 23:30: Arterial Blood pH 7.318L, Arterial Blood Partial Pressure CO2 58.8*H, Arterial Blood Partial Pressure O2 75.2, Arterial Blood HCO3 29.5H, Arterial Blood Oxygen Saturation 93.3L, Arterial Blood Base Excess 2.1H, Ian Test Positive 03/12/18 06:30: White Blood Count 9.9, Red Blood Count 4.21, Hemoglobin 12.7, Hematocrit 36.6L, Mean Corpuscular Volume 87, Mean Corpuscular Hemoglobin 30.0, Mean Corpuscular Hemoglobin Concent 34.6, Red Cell Distribution Width 13.6, Platelet Count 165, Mean Platelet Volume 6.9, Neutrophils (%) (Auto) 83.6H, Lymphocytes (%) (Auto) 6.8L, Monocytes (%) (Auto) 7.1, Eosinophils (%) (Auto) 1.4, Basophils (%) (Auto ) 1.1, Sodium Level 124L, Potassium Level 4.1, Chloride Level 89L, Carbon Dioxide Level 33H, Anion Gap 2L, Blood Urea Nitrogen 8, Creatinine 0.6, Estimat Glomerular Filtration Rate , Glucose Level 114H, Calcium Level 8.5, Total Bilirubin 0.4, Aspartate Amino Transf (AST/SGOT) 9L, Alanine Aminotransferase ( ALT/SGPT) 17, Alkaline Phosphatase 61, Pro-B-Type Natriuretic Peptide 1737H, Total Protein 6.2L, Albumin 3.0L, Globulin 3.2, Albumin/Globulin Ratio 0.9L Height (Feet): 5 Height (Inches): 3.00 Weight (Pounds): 189 General Appearance: no apparent distress, alert Neurologic: oriented x 3, responsive, depressed affect Luiz Morrison MD Mar 12, 2018 10:36
--- NOTE | 2018-03-12 10:40 | Diagnostic Imaging Report ---
Indication: Dyspnea Comparison: 03/10/2018 A single view chest radiograph was obtained. Findings: Pulmonary vascular congestion demonstrated. There is a cyst suggestion of mild interstitial edema. There is silhouetting of the left hemidiaphragm which may be due to a pleural effusion. The heart is enlarged. The mitral annulus is heavily calcified. The aorta is calcified. IMPRESSION: Slightly worsening pulmonary vascular congestion. Correlate clinically
--- NOTE | 2018-03-12 11:34 | Consultation ---
History of Present Illness General Date patient seen: Mar 12, 2018 Chief Complaint: Generalized Weakness Reason for Consultation: inpatient management Present Illness HPI 77 y/o F with hx of HTN, COPD, atrial flutter, L DVT, seizure disorder, depression/schizophrenia, history of alcohol abuse presents to ED on 03/10 with generalized weakness, sleeping more than usual, feelings of depression, slight SOB. Upon admission found to have severe hyponatremia (117) and was started on 3 % saline solution Denied CAREY, CP, n/v/d, abd pain Patient was admitted back in 09/2017 for bronchitis and UTI. The patient is a 76-year-old female with Bronchitis, possible pneumonia. Chest x-ray: Blunting of the left costophrenic angle, unchanged compared to the prior exam, which may suggest a mild left pleural effusion versus pleural thickening. Unchanged appearance of mildly increased interstitial markings. This may be related to chronic senescent changes, however differential diagnosis may also include mild pulmonary vascular congestion or mild interstitial pneumonitis. -sp cx ordered, not collected. -Bcx neg Positive urine culture > 100K P.mirabilis (S Ceftriaxone)> UTI ( +urinary hesitancy, no dysuria or frequency ) -u/a wbc tntc, nit +, leuk +3 Afebrile. normal white blood cells. s/p Abd US: Cholelithiasis. Negative for dilated ducts. Mildly coarsened hepatic echogenicity and equivocal surface nodularity, if real could indicate early cirrhotic changes. Bilateral nonobstructive intrarenal calculi. Right renal cyst incidentally noted History of coag-negative Staph bacteremia (in July,), s/p Rx 2 weeks -JIMY tickened MV, no vegetations MRSA colonization Hypertension. COPD. History of atrial flutter. CAD status post stent. History of alcohol abuse. History of bilateral hip replacement. Seizure disorder. PLAN: cont PO Cefdinir #5/5 for UTI (abx d#8 for bronchitis/possible PNA) -10/19 SP Levaquin #3 Monitor CBC. Monitor BMP. Monitor chest x-ray. Discharge planning Allergies: Coded Allergies: PIPERACILLIN (Unverified Allergy, Unknown, 03/10/18) TAZOBACTAM (Unverified Allergy, Unknown, 03/10/18) Medication History Scheduled Al Hydroxide/mg Hydroxide (Mag-Al Plus Suspension), 30 ML PO prn Q6hr, (Reported ) Allopurinol* (Allopurinol*), 100 MG ORAL DAILY Apixaban (Eliquis), 5 MG ORAL BID Atorvastatin Calcium* (Lipitor*), 10 MG ORAL BEDTIME Bisacodyl* (Dulcolax*), 10 MG ORAL PRN daily, (Reported) Bupropion HCl (Wellbutrin), 150 MG ORAL DAILY, (Reported) Cefdinir (Cefdinir), 300 MG PO BID, (Reported) Diclofenac Sodium (Voltaren), 100 GM TP BID, (Reported) Diltiazem Hcl* (Cardizem*), 60 MG ORAL Q6H Divalproex Sodium* (Depakote*), 250 MG PO Q12HR, (Reported) Divalproex Sodium* (Depakote Er*), 250 MG ORAL EVERY 12 HOURS, (Reported) Docusate Sodium* (Docusate Sodium*), 250 MG ORAL DAILY, (Reported) Furosemide* (Lasix*), 40 MG ORAL DAILY, (Reported) Hydralazine HCl (Hydralazine HCl), 25 MG PO Q6HR, (Reported) Lisinopril (Lisinopril*), 5 MG ORAL DAILY, (Reported) Metoprolol Tartrate (Metoprolol Tartrate), 25 MG ORAL Q12HR Mirtazapine* (Mirtazapine*), 15 MG ORAL BEDTIME, (Reported) Multivitamin With Minerals (Multivitamins With Minerals*), 1 TAB ORAL DAILY, ( Reported) Nitrofurantoin Monohyd/M-Cryst* (Macrobid 100 Mg*), 100 MG ORAL EVERY 12 HOURS, (Reported) Nitroglycerin (Nitroglycerin Patch), 1 EACH TD Q6HR, (Reported) [place]-3 Fatty Acids/Fish Oil* (Fish Oil 1,000 Mg Softgel*), 1 CAP ORAL DAILY, ( Reported) Pantoprazole* (Pantoprazole*), 40 MG ORAL DAILY, (Reported) Pseudoephedrine Hcl (Sudogest), 30 MG PO BID, (Reported) Ranitidine Hcl (Ranitidine Hcl), 150 MG ORAL BEDTIME, (Reported) Risperidone* (Risperdal*), 0.5 MG ORAL BID, (Reported) Rivaroxaban (Xarelto*), 10 MG ORAL DAILY, (Reported) Solifenacin Succinate (Vesicare*), 10 MG ORAL DAILY, (Reported) Solifenacin Succinate (Vesicare*), 10 MG ORAL DAILY, (Reported) Trimethoprim/Sulfamethoxazole 160/800* (Bactrim Ds Tablet*), 1 TAB ORAL TWICE A DAY, (Reported) Vancomycin/0.9 % Sod Chloride (Vancomycin-0.9% NaCl 1 G/250), 1 GM IV Q12HR, ( Reported) Scheduled PRN Acetaminophen (Acetaminophen), 650 MG ORAL Q4HR PRN for Mild Pain/Temp > 100.5, (Reported) Bisacodyl (Bisacodyl), 10 MG RC for Constipation, (Reported) Hydrocodone Bit/Acetaminophen 5-325* ([place] 5-325 Tablet*), 1 TAB ORAL Q6HR PRN for For Pain, (Reported) Ipratropium/Albuterol Sulfate (DuoNeb 0.5-3(2.5)mg/3ml), 3 ML HHN EVERY 6 HOURS PRN for Shortness of Breath, (Reported) Polyethylene Glycol 3350* (Miralax*), 17 GM ORAL PRN at bedtime PRN for Constipation, (Reported) Promethazine/Phenyleph/Codeine (Promethazine Vc-Codeine Syrup), 10 ML ORAL Q4H PRN for For Cough, (Reported) Tramadol Hcl* (Ultram*), 50 MG ORAL Q12HR PRN for For Pain, (Reported) Zolpidem Tartrate* (Ambien*), 5 MG ORAL BEDTIME PRN for Insomnia, (Reported) Miscellaneous Medications Dextran 70/Hypromellose (Artificial Tears Eye Drops*), 1 DROP BOTH EYES, ( Reported) Patient History Healthcare decision maker Resuscitation status Full Code Advanced Directive on File No Patient History Narrative Pmhx: as above Shx: The patient is a resident of [facility]. The patient denies tobacco use. The patient does have history of alcohol abuse. Fhx: non contributory Review of Systems All Other Systems: negative except mentioned in HPI Physical Exam Physical Exam Narrative . GENERAL: The patient is a well-developed, well-nourished white female, in no apparent distress. HEENT: Eyes, pupils equal and responsive to light and accommodation. Extraocular movements are intact. NECK: Supple without lymphadenopathy. CHEST: Lungs are clear to auscultation bilaterally without wheezes or rales. CARDIOVASCULAR: Regular rate. S1, S2 are normal without murmurs, rubs, or gallops. ABDOMEN: Soft, nontender, and nondistended. Positive bowel sounds. No evidence of hepatosplenomegaly. Currently, no rebound or guarding noted. EXTREMITIES: Negative for clubbing, cyanosis, or edema. Last 24 Hour Vital Signs Date Time Temp Pulse Resp B/P (MAP) Pulse Ox O2 Delivery O2 Flow Rate FiO2 03/12/18 08:09 95 Venturi Mask 10.0 45 03/12/18 08:09 85 20 Venturi Mask 10.0 45 03/12/18 08:09 Venturi Mask 10.0 45 03/12/18 06:00 125/68 03/12/18 06:00 93 125/68 03/12/18 04:00 93 03/12/18 04:00 98.4 96 19 125/68 (87) 96 98.4 03/12/18 00:00 93 03/12/18 00:00 98.2 93 24 118/62 (80) 93 98.2 03/11/18 23:52 121/68 03/11/18 23:52 90 121/68 03/11/18 22:54 90 20 Venturi Mask 10.0 45 03/11/18 22:52 Venturi Mask 10.0 45 03/11/18 22:52 96 Venturi Mask 10.0 45 03/11/18 21:00 Room Air 03/11/18 20:00 111 03/11/18 20:00 98.3 82 22 133/53 (79) 91 98.3 03/11/18 18:46 130/61 03/11/18 18:45 114 130/61 03/11/18 16:00 114 03/11/18 16:00 98.2 62 20 130/61 (84) 95 98.2 03/11/18 12:18 141/74 03/11/18 12:18 94 141/74 03/11/18 12:00 97 03/11/18 12:00 98.1 94 20 141/74 (96) 94 98.1 Intake and Output 03/11/18 03/12/18 19:00 07:00 Intake Total 360 ml 120 ml Output Total 300 ml 625 ml Balance 60 ml -505 ml Intake Oral 360 ml 120 ml Output Urine Total 300 ml 625 ml # Voids 2 # Bowel Movements 1 1 Laboratory Tests Test 03/11/18 15:35 03/11/18 16:00 03/11/18 23:30 03/12/18 06:30 Osmolality 292 mOsm/kg (297-317) L Uric Acid 2.9 MG/DL (2.6-7.2) Phosphorus Level 4.1 MG/DL (2.5-4.9) Magnesium Level 1.6 MG/DL (1.8-2.4) L Urine Osmolality 199 mOsm/kg (429-449) L Urine Random Sodium 51 mmol/L (20-110) Arterial Blood pH 7.318 (7.350-7.450) Arterial Blood Partial Pressure CO2 58.8 mmHg (35.0-45.0) *H Arterial Blood Partial Pressure O2 75.2 mmHg (75.0-100.0) Arterial Blood HCO3 29.5 mmol/L (22.0-26.0) H Arterial Blood Oxygen Saturation 93.3 % (95-100) L Arterial Blood Base Excess 2.1 (-2-2) H Ian Test Positive White Blood Count 9.9 K/UL (4.8-10.8) Red Blood Count 4.21 M/UL (4.20-5.40) Hemoglobin 12.7 G/DL (12.0-16.0) Hematocrit 36.6 % (37.0-47.0) L Mean Corpuscular Volume 87 FL (80-99) Mean Corpuscular Hemoglobin 30.0 PG (27.0-31.0) Mean Corpuscular Hemoglobin Concent 34.6 G/DL (32.0-36.0) Red Cell Distribution Width 13.6 % (11.6-14.8) Platelet Count 165 K/UL (150-450) Mean Platelet Volume 6.9 FL (6.5-10.1) Neutrophils (%) (Auto) 83.6 % (45.0-75.0) H Lymphocytes (%) (Auto) 6.8 % (20.0-45.0) L Monocytes (%) (Auto) 7.1 % (1.0-10.0) Eosinophils (%) (Auto) 1.4 % (0.0-3.0) Basophils (%) (Auto) 1.1 % (0.0-2.0) Sodium Level 124 MMOL/L (136-145) L Potassium Level 4.1 MMOL/L (3.5-5.1) Chloride Level 89 MMOL/L (98-107) L Carbon Dioxide Level 33 MMOL/L (21-32) H Anion Gap 2 mmol/L (5-15) L Blood Urea Nitrogen 8 mg/dL (7-18) Creatinine 0.6 MG/DL (0.55-1.30) Estimat Glomerular Filtration Rate mL/min (>60) Glucose Level 114 MG/DL (74-106) H Calcium Level 8.5 MG/DL (8.5-10.1) Total Bilirubin 0.4 MG/DL (0.2-1.0) Aspartate Amino Transf (AST/SGOT) 9 U/L (15-37) L Alanine Aminotransferase (ALT/SGPT) 17 U/L (12-78) Alkaline Phosphatase 61 U/L (46-116) Pro-B-Type Natriuretic Peptide 1737 pg/mL (0-125) H Total Protein 6.2 G/DL (6.4-8.2) L Albumin 3.0 G/DL (3.4-5.0) L Globulin 3.2 g/dL Albumin/Globulin Ratio 0.9 (1.0-2.7) L Height (Feet): 5 Height (Inches): 3.00 Weight (Pounds): 189 Medications Current Medications Medications (Trade) Dose Ordered Sig/Ibrahima Route PRN Reason Start Time Stop Time Status Last Admin Dose Admin Acetaminophen (Tylenol) 650 mg Q4H PRN ORAL fever 03/10/18 21:15 04/09/18 21:14 Albuterol/ Ipratropium (Albuterol/ Ipratropium) 3 ml Q4HRT PRN HHN Shortness of Breath 03/11/18 23:30 03/16/18 23:29 Apixaban (Eliquis) 5 mg BID ORAL 03/11/18 09:00 04/10/18 08:59 03/12/18 09:18 Atorvastatin Calcium (Lipitor) 10 mg BEDTIME ORAL 03/11/18 21:00 04/10/18 20:59 03/11/18 21:29 Dextrose (Dextrose 50%) STAT PRN IV Hypoglycemia 03/10/18 21:15 04/09/18 21:14 Diltiazem HCl (Cardizem) 60 mg Q6HR ORAL 03/11/18 00:00 04/10/18 00:00 03/11/18 18:45 Furosemide (Lasix) 10 mg EVERY 6 HOURS IV 03/11/18 18:00 04/10/18 17:59 03/12/18 06:44 Hydralazine HCl (Apresoline) 25 mg Q6HR ORAL 03/11/18 00:00 04/10/18 00:00 03/11/18 18:46 Iopamidol (Isovue-370 150ml) 150 ml NOW PRN INJ Radiology Procedure 03/12/18 05:00 03/14/18 05:00 Lansoprazole (Prevacid) 30 mg Q12HR ORAL 03/11/18 21:45 04/10/18 21:44 03/12/18 09:18 Lorazepam (Ativan 2mg/ml 1ml) 1 mg Q4H PRN IV For Anxiety 03/11/18 12:00 03/18/18 11:59 Mirtazapine (Remeron) 15 mg BEDTIME ORAL 03/10/18 22:00 04/09/18 21:59 03/11/18 21:29 Morphine Sulfate (Morphine Sulfate) 1 mg Q4H PRN IVP For Pain 03/10/18 21:15 03/17/18 21:14 Ondansetron HCl (Zofran) 4 mg Q6H PRN IVP Nausea & Vomiting 03/10/18 21:15 04/09/18 21:14 Polyethylene Glycol (Miralax) 17 gm HSPRN PRN ORAL Constipation 03/10/18 21:15 04/09/18 21:14 Risperidone (RisperDAL) 2 mg BEDTIME ORAL 03/11/18 21:00 04/10/18 20:59 03/11/18 21:29 Sodium Chloride 500 ml @ 30 mls/hr ONCE ONCE IV 03/12/18 22:00 03/13/18 14:39 Sodium Chloride 1,000 ml @ 30 mls/hr ONCE IV 03/11/18 09:00 03/12/18 21:00 03/12/18 09:19 Zolpidem Tartrate (Ambien) 5 mg HSPRN PRN ORAL Insomnia 03/10/18 21:15 03/17/18 21:14 03/11/18 22:05 Assessment/Plan Assessment/Plan Abx: IV Vancomcyin x1 03/10 Cefepime x1 03/10 Assessment: Afebrile No leukocytosis -u/a neg -Bcx NTD Acute respiratory distress- now on VM 2ry to vol overload- no evidence of PNA -CXR: Slightly worsening pulmonary vascular congestion. Correlate clinically Hyponatremia Generalized weakness- no evidence of infectious process Hx of UTI and bronchitis 09/2017, s/p Rx -100K P.mirabilis (S Ceftriaxone) History of coag-negative Staph bacteremia (in July,), s/p Rx 2 weeks -IJMY tickened MV, no vegetations Hypertension. COPD. History of atrial flutter. CAD status post stent. History of alcohol abuse. History of bilateral hip replacement. Seizure disorder. hx L DVT MRSA and VRE colonized Plan: -Continue to monitor off abx -10/24 SP Cefdnir #5 -10/19/17 SP Levaquin #3 -f/u cx -Monitor CBC/CMP, temperatures -aspiration precautions -Renal and cards f/u Thank you for this consultation. Will continue to follow along with you. Discussed with RN. 77 y/o F with hx of HTN, COPD, atrial flutter, L DVT, seizure disorder, depression/schizophrenia, history of alcohol abuse presents to ED on 03/10 with generalized weakness, sleeping more than usual, feelings of depression, slight SOB. Upon admission found to have severe hyponatremia (117) and was started on 3 % saline solution Denied CAREY, CP, n/v/d, abd pain Patient was admitted back in 09/2017 for bronchitis and UTI. Danica Nayak M.D. Mar 12, 2018 11:34
[2018-03-12 12:00] VITALS: BP 133/85
--- NOTE | 2018-03-12 12:15 | Diagnostic Imaging Report ---
Indication: Dyspnea Comparison: 03/11/2018 A single view chest radiograph was obtained. Findings: Interstitial edema may be slightly improved since the last examination. Cardiomegaly is again noted. IMPRESSION: Mild interstitial edema slightly improved
--- NOTE | 2018-03-12 13:13 | Pulmonology Progress Note ---
Assessment/Plan Problems: (1) Encephalopathy acute (2) Hyponatremia (3) Seizure disorder (4) HTN (hypertension) (5) Anemia, chronic disease (6) Major depression Assessment/Plan Na better on lasix IV respiratory treatment Neuro evaluation titrate cardiac meds swallow study aspiration precaution. Subjective ROS Limited/Unobtainable: No Interval Events: pt is somnolent, desaturated last night, cxr unchanged. Constitutional: Reports: no symptoms HEENT: Repors: no symptoms Respiratory: Reports: no symptoms Allergies: Coded Allergies: PIPERACILLIN (Unverified Allergy, Unknown, 03/10/18) TAZOBACTAM (Unverified Allergy, Unknown, 03/10/18) Objective Last 24 Hour Vital Signs Date Time Temp Pulse Resp B/P (MAP) Pulse Ox O2 Delivery O2 Flow Rate FiO2 03/12/18 12:52 133/85 03/12/18 12:51 82 133/85 03/12/18 12:20 96 Venturi Mask 6.0 35 03/12/18 08:09 95 Venturi Mask 10.0 45 03/12/18 08:09 85 20 Venturi Mask 10.0 45 03/12/18 08:09 Venturi Mask 10.0 45 03/12/18 06:00 125/68 03/12/18 06:00 93 125/68 03/12/18 04:00 93 03/12/18 04:00 98.4 96 19 125/68 (87) 96 98.4 03/12/18 00:00 93 03/12/18 00:00 98.2 93 24 118/62 (80) 93 98.2 03/11/18 23:52 121/68 03/11/18 23:52 90 121/68 03/11/18 22:54 90 20 Venturi Mask 10.0 45 03/11/18 22:52 Venturi Mask 10.0 45 03/11/18 22:52 96 Venturi Mask 10.0 45 03/11/18 21:00 Room Air 03/11/18 20:00 111 03/11/18 20:00 98.3 82 22 133/53 (79) 91 98.3 03/11/18 18:46 130/61 03/11/18 18:45 114 130/61 03/11/18 16:00 114 03/11/18 16:00 98.2 62 20 130/61 (84) 95 98.2 Intake and Output 03/11/18 03/12/18 19:00 07:00 Intake Total 360 ml 120 ml Output Total 300 ml 625 ml Balance 60 ml -505 ml Intake Oral 360 ml 120 ml Output Urine Total 300 ml 625 ml # Voids 2 # Bowel Movements 1 1 General Appearance: WD/WN HEENT: normocephalic, atraumatic Respiratory/Chest: chest wall non-tender, lungs clear, decreased breath sounds Cardiovascular: normal peripheral pulses, normal rate Abdomen: normal bowel sounds, soft, non tender Microbiology Date/Time Source Procedure Growth Status 03/10/18 14:21 Blood Blood Culture - Preliminary NO GROWTH AFTER 24 HOURS Resulted 03/10/18 14:15 Blood Blood Culture - Preliminary NO GROWTH AFTER 24 HOURS Resulted 03/10/18 17:45 Nasal Nares MRSA Culture - Final Staphylococcus Aureus - Mrsa Complete 03/10/18 17:45 Rectum VRE Culture - Final Enterococcus Faecalis - Vre Complete 03/10/18 17:45 Rectum - Final NO CARBAPENEM-RESISTANT ENTEROBACTERI... Complete Laboratory Tests 03/11/18 15:35: Osmolality 292L, Uric Acid 2.9, Phosphorus Level 4.1, Magnesium Level 1.6L 03/11/18 16:00: Urine Osmolality 199L, Urine Random Sodium 51 03/11/18 23:30: Arterial Blood pH 7.318L, Arterial Blood Partial Pressure CO2 58.8*H, Arterial Blood Partial Pressure O2 75.2, Arterial Blood HCO3 29.5H, Arterial Blood Oxygen Saturation 93.3L, Arterial Blood Base Excess 2.1H, Ian Test Positive 03/12/18 06:30: White Blood Count 9.9, Red Blood Count 4.21, Hemoglobin 12.7, Hematocrit 36.6L, Mean Corpuscular Volume 87, Mean Corpuscular Hemoglobin 30.0, Mean Corpuscular Hemoglobin Concent 34.6, Red Cell Distribution Width 13.6, Platelet Count 165, Mean Platelet Volume 6.9, Neutrophils (%) (Auto) 83.6H, Lymphocytes (%) (Auto) 6.8L, Monocytes (%) (Auto) 7.1, Eosinophils (%) (Auto) 1.4, Basophils (%) (Auto ) 1.1, Sodium Level 124L, Potassium Level 4.1, Chloride Level 89L, Carbon Dioxide Level 33H, Anion Gap 2L, Blood Urea Nitrogen 8, Creatinine 0.6, Estimat Glomerular Filtration Rate , Glucose Level 114H, Calcium Level 8.5, Total Bilirubin 0.4, Aspartate Amino Transf (AST/SGOT) 9L, Alanine Aminotransferase ( ALT/SGPT) 17, Alkaline Phosphatase 61, Pro-B-Type Natriuretic Peptide 1737H, Total Protein 6.2L, Albumin 3.0L, Globulin 3.2, Albumin/Globulin Ratio 0.9L Current Medications Medications (Trade) Dose Ordered Sig/Ibrahima Route PRN Reason Start Time Stop Time Status Last Admin Dose Admin Acetaminophen (Tylenol) 650 mg Q4H PRN ORAL fever 03/10/18 21:15 04/09/18 21:14 Albuterol/ Ipratropium (Albuterol/ Ipratropium) 3 ml Q4HRT PRN HHN Shortness of Breath 03/11/18 23:30 03/16/18 23:29 Apixaban (Eliquis) 5 mg BID ORAL 03/11/18 09:00 04/10/18 08:59 03/12/18 09:18 Atorvastatin Calcium (Lipitor) 10 mg BEDTIME ORAL 03/11/18 21:00 04/10/18 20:59 03/11/18 21:29 Dextrose (Dextrose 50%) STAT PRN IV Hypoglycemia 03/10/18 21:15 04/09/18 21:14 Diltiazem HCl (Cardizem) 60 mg Q6HR ORAL 03/11/18 00:00 04/10/18 00:00 03/12/18 12:51 Furosemide (Lasix) 10 mg EVERY 6 HOURS IV 03/11/18 18:00 04/10/18 17:59 03/12/18 12:52 Hydralazine HCl (Apresoline) 25 mg Q6HR ORAL 03/11/18 00:00 04/10/18 00:00 03/12/18 12:52 Iopamidol (Isovue-370 150ml) 150 ml NOW PRN INJ Radiology Procedure 03/12/18 05:00 03/14/18 05:00 Lansoprazole (Prevacid) 30 mg Q12HR ORAL 03/11/18 21:45 04/10/18 21:44 03/12/18 09:18 Lorazepam (Ativan 2mg/ml 1ml) 1 mg Q4H PRN IV For Anxiety 03/11/18 12:00 03/18/18 11:59 Mirtazapine (Remeron) 15 mg BEDTIME ORAL 03/10/18 22:00 04/09/18 21:59 03/11/18 21:29 Morphine Sulfate (Morphine Sulfate) 1 mg Q4H PRN IVP For Pain 03/10/18 21:15 03/17/18 21:14 Ondansetron HCl (Zofran) 4 mg Q6H PRN IVP Nausea & Vomiting 03/10/18 21:15 04/09/18 21:14 Polyethylene Glycol (Miralax) 17 gm HSPRN PRN ORAL Constipation 03/10/18 21:15 04/09/18 21:14 Risperidone (RisperDAL) 2 mg BEDTIME ORAL 03/11/18 21:00 04/10/18 20:59 03/11/18 21:29 Sodium Chloride 500 ml @ 30 mls/hr ONCE ONCE IV 03/12/18 22:00 03/13/18 14:39 Sodium Chloride 1,000 ml @ 30 mls/hr ONCE IV 03/11/18 09:00 03/12/18 21:00 03/12/18 09:19 Zolpidem Tartrate (Ambien) 5 mg HSPRN PRN ORAL Insomnia 03/10/18 21:15 03/17/18 21:14 03/11/18 22:05 Mendel Sierra MD Mar 12, 2018 13:13
--- NOTE | 2018-03-12 13:18 | Consultation ---
History of Present Illness General Date patient seen: Mar 12, 2018 Time patient seen: 13:09 Chief Complaint: Generalized Weakness Reason for Consultation: inpatient management Present Illness HPI 77 year old female sent from assisted [facility] for weakness x5 days confusion , found to have abnormal elecrolytes. She has a hx of HTN, Bradycardia, atrial flutter, COPD, Depression. CXR with cardiomegaly and interstitial edema, she is hyponatremia NA 124, on 3 percent saline. Allergies: Coded Allergies: PIPERACILLIN (Unverified Allergy, Unknown, 03/10/18) TAZOBACTAM (Unverified Allergy, Unknown, 03/10/18) Medication History Scheduled Al Hydroxide/mg Hydroxide (Mag-Al Plus Suspension), 30 ML PO prn Q6hr, (Reported ) Allopurinol* (Allopurinol*), 100 MG ORAL DAILY Apixaban (Eliquis), 5 MG ORAL BID Atorvastatin Calcium* (Lipitor*), 10 MG ORAL BEDTIME Bisacodyl* (Dulcolax*), 10 MG ORAL PRN daily, (Reported) Bupropion HCl (Wellbutrin), 150 MG ORAL DAILY, (Reported) Cefdinir (Cefdinir), 300 MG PO BID, (Reported) Diclofenac Sodium (Voltaren), 100 GM TP BID, (Reported) Diltiazem Hcl* (Cardizem*), 60 MG ORAL Q6H Divalproex Sodium* (Depakote*), 250 MG PO Q12HR, (Reported) Divalproex Sodium* (Depakote Er*), 250 MG ORAL EVERY 12 HOURS, (Reported) Docusate Sodium* (Docusate Sodium*), 250 MG ORAL DAILY, (Reported) Furosemide* (Lasix*), 40 MG ORAL DAILY, (Reported) Hydralazine HCl (Hydralazine HCl), 25 MG PO Q6HR, (Reported) Lisinopril (Lisinopril*), 5 MG ORAL DAILY, (Reported) Metoprolol Tartrate (Metoprolol Tartrate), 25 MG ORAL Q12HR Mirtazapine* (Mirtazapine*), 15 MG ORAL BEDTIME, (Reported) Multivitamin With Minerals (Multivitamins With Minerals*), 1 TAB ORAL DAILY, ( Reported) Nitrofurantoin Monohyd/M-Cryst* (Macrobid 100 Mg*), 100 MG ORAL EVERY 12 HOURS, (Reported) Nitroglycerin (Nitroglycerin Patch), 1 EACH TD Q6HR, (Reported) Mineral-3 Fatty Acids/Fish Oil* (Fish Oil 1,000 Mg Softgel*), 1 CAP ORAL DAILY, ( Reported) Pantoprazole* (Pantoprazole*), 40 MG ORAL DAILY, (Reported) Pseudoephedrine Hcl (Sudogest), 30 MG PO BID, (Reported) Ranitidine Hcl (Ranitidine Hcl), 150 MG ORAL BEDTIME, (Reported) Risperidone* (Risperdal*), 0.5 MG ORAL BID, (Reported) Rivaroxaban (Xarelto*), 10 MG ORAL DAILY, (Reported) Solifenacin Succinate (Vesicare*), 10 MG ORAL DAILY, (Reported) Solifenacin Succinate (Vesicare*), 10 MG ORAL DAILY, (Reported) Trimethoprim/Sulfamethoxazole 160/800* (Bactrim Ds Tablet*), 1 TAB ORAL TWICE A DAY, (Reported) Vancomycin/0.9 % Sod Chloride (Vancomycin-0.9% NaCl 1 G/250), 1 GM IV Q12HR, ( Reported) Scheduled PRN Acetaminophen (Acetaminophen), 650 MG ORAL Q4HR PRN for Mild Pain/Temp > 100.5, (Reported) Bisacodyl (Bisacodyl), 10 MG RC for Constipation, (Reported) Hydrocodone Bit/Acetaminophen 5-325* ([place] 5-325 Tablet*), 1 TAB ORAL Q6HR PRN for For Pain, (Reported) Ipratropium/Albuterol Sulfate (DuoNeb 0.5-3(2.5)mg/3ml), 3 ML HHN EVERY 6 HOURS PRN for Shortness of Breath, (Reported) Polyethylene Glycol 3350* (Miralax*), 17 GM ORAL PRN at bedtime PRN for Constipation, (Reported) Promethazine/Phenyleph/Codeine (Promethazine Vc-Codeine Syrup), 10 ML ORAL Q4H PRN for For Cough, (Reported) Tramadol Hcl* (Ultram*), 50 MG ORAL Q12HR PRN for For Pain, (Reported) Zolpidem Tartrate* (Ambien*), 5 MG ORAL BEDTIME PRN for Insomnia, (Reported) Miscellaneous Medications Dextran 70/Hypromellose (Artificial Tears Eye Drops*), 1 DROP BOTH EYES, ( Reported) Patient History Healthcare decision maker Resuscitation status Full Code Advanced Directive on File No Review of Systems Constitutional: Reports: weakness Eye: Reports: no symptoms ENT: Reports: no symptoms Respiratory: Reports: no symptoms Cardiovascular: Reports: no symptoms Gastrointestinal: Reports: no symptoms Genitourinary: Reports: no symptoms Musculoskeletal: Reports: no symptoms Skin: Reports: no symptoms Psychiatric: Reports: no symptoms Neurological: Reports: no symptoms Endocrine: Reports: no symptoms Hematologic/Lymphatic: Reports: no symptoms Physical Exam General Appearance: no apparent distress, alert Lines, tubes and drains: peripheral HEENT: normocephalic, atraumatic Neck: non-tender, normal alignment Respiratory/Chest: chest wall non-tender, normal breath sounds, crackles/rales , rhonchi - left Cardiovascular/Chest: normal peripheral pulses, normal rate Abdomen: normal bowel sounds, non tender, soft Extremities: non-tender Skin Exam: normal pigmentation Neurologic: beet topper II-XII grossly normal Last 24 Hour Vital Signs Date Time Temp Pulse Resp B/P (MAP) Pulse Ox O2 Delivery O2 Flow Rate FiO2 03/12/18 12:52 133/85 03/12/18 12:51 82 133/85 03/12/18 12:20 96 Venturi Mask 6.0 35 03/12/18 08:09 95 Venturi Mask 10.0 45 03/12/18 08:09 85 20 Venturi Mask 10.0 45 03/12/18 08:09 Venturi Mask 10.0 45 03/12/18 06:00 125/68 03/12/18 06:00 93 125/68 03/12/18 04:00 93 03/12/18 04:00 98.4 96 19 125/68 (87) 96 98.4 03/12/18 00:00 93 03/12/18 00:00 98.2 93 24 118/62 (80) 93 98.2 03/11/18 23:52 121/68 03/11/18 23:52 90 121/68 03/11/18 22:54 90 20 Venturi Mask 10.0 45 03/11/18 22:52 Venturi Mask 10.0 45 03/11/18 22:52 96 Venturi Mask 10.0 45 03/11/18 21:00 Room Air 03/11/18 20:00 111 03/11/18 20:00 98.3 82 22 133/53 (79) 91 98.3 03/11/18 18:46 130/61 03/11/18 18:45 114 130/61 03/11/18 16:00 114 03/11/18 16:00 98.2 62 20 130/61 (84) 95 98.2 Intake and Output 03/11/18 03/12/18 19:00 07:00 Intake Total 360 ml 120 ml Output Total 300 ml 625 ml Balance 60 ml -505 ml Intake Oral 360 ml 120 ml Output Urine Total 300 ml 625 ml # Voids 2 # Bowel Movements 1 1 Laboratory Tests Test 03/11/18 15:35 03/11/18 16:00 03/11/18 23:30 03/12/18 06:30 Osmolality 292 mOsm/kg (297-317) L Uric Acid 2.9 MG/DL (2.6-7.2) Phosphorus Level 4.1 MG/DL (2.5-4.9) Magnesium Level 1.6 MG/DL (1.8-2.4) L Urine Osmolality 199 mOsm/kg (429-449) L Urine Random Sodium 51 mmol/L (20-110) Arterial Blood pH 7.318 (7.350-7.450) Arterial Blood Partial Pressure CO2 58.8 mmHg (35.0-45.0) *H Arterial Blood Partial Pressure O2 75.2 mmHg (75.0-100.0) Arterial Blood HCO3 29.5 mmol/L (22.0-26.0) H Arterial Blood Oxygen Saturation 93.3 % (95-100) L Arterial Blood Base Excess 2.1 (-2-2) H Ian Test Positive White Blood Count 9.9 K/UL (4.8-10.8) Red Blood Count 4.21 M/UL (4.20-5.40) Hemoglobin 12.7 G/DL (12.0-16.0) Hematocrit 36.6 % (37.0-47.0) L Mean Corpuscular Volume 87 FL (80-99) Mean Corpuscular Hemoglobin 30.0 PG (27.0-31.0) Mean Corpuscular Hemoglobin Concent 34.6 G/DL (32.0-36.0) Red Cell Distribution Width 13.6 % (11.6-14.8) Platelet Count 165 K/UL (150-450) Mean Platelet Volume 6.9 FL (6.5-10.1) Neutrophils (%) (Auto) 83.6 % (45.0-75.0) H Lymphocytes (%) (Auto) 6.8 % (20.0-45.0) L Monocytes (%) (Auto) 7.1 % (1.0-10.0) Eosinophils (%) (Auto) 1.4 % (0.0-3.0) Basophils (%) (Auto) 1.1 % (0.0-2.0) Sodium Level 124 MMOL/L (136-145) L Potassium Level 4.1 MMOL/L (3.5-5.1) Chloride Level 89 MMOL/L (98-107) L Carbon Dioxide Level 33 MMOL/L (21-32) H Anion Gap 2 mmol/L (5-15) L Blood Urea Nitrogen 8 mg/dL (7-18) Creatinine 0.6 MG/DL (0.55-1.30) Estimat Glomerular Filtration Rate mL/min (>60) Glucose Level 114 MG/DL (74-106) H Calcium Level 8.5 MG/DL (8.5-10.1) Total Bilirubin 0.4 MG/DL (0.2-1.0) Aspartate Amino Transf (AST/SGOT) 9 U/L (15-37) L Alanine Aminotransferase (ALT/SGPT) 17 U/L (12-78) Alkaline Phosphatase 61 U/L (46-116) Pro-B-Type Natriuretic Peptide 1737 pg/mL (0-125) H Total Protein 6.2 G/DL (6.4-8.2) L Albumin 3.0 G/DL (3.4-5.0) L Globulin 3.2 g/dL Albumin/Globulin Ratio 0.9 (1.0-2.7) L Height (Feet): 5 Height (Inches): 3.00 Weight (Pounds): 189 Medications Current Medications Medications (Trade) Dose Ordered Sig/Ibrahima Route PRN Reason Start Time Stop Time Status Last Admin Dose Admin Acetaminophen (Tylenol) 650 mg Q4H PRN ORAL fever 03/10/18 21:15 118/18 21:14 Albuterol/ Ipratropium (Albuterol/ Ipratropium) 3 ml Q4HRT PRN HHN Shortness of Breath 03/11/18 23:30 03/16/18 23:29 Apixaban (Eliquis) 5 mg BID ORAL 03/11/18 09:00 04/10/18 08:59 03/12/18 09:18 Atorvastatin Calcium (Lipitor) 10 mg BEDTIME ORAL 03/11/18 21:00 04/10/18 20:59 03/11/18 21:29 Dextrose (Dextrose 50%) STAT PRN IV Hypoglycemia 03/10/18 21:15 04/09/18 21:14 Diltiazem HCl (Cardizem) 60 mg Q6HR ORAL 03/11/18 00:00 04/10/18 00:00 03/12/18 12:51 Furosemide (Lasix) 10 mg EVERY 6 HOURS IV 03/11/18 18:00 04/10/18 17:59 03/12/18 12:52 Hydralazine HCl (Apresoline) 25 mg Q6HR ORAL 03/11/18 00:00 04/10/18 00:00 03/12/18 12:52 Iopamidol (Isovue-370 150ml) 150 ml NOW PRN INJ Radiology Procedure 03/12/18 05:00 03/14/18 05:00 Lansoprazole (Prevacid) 30 mg Q12HR ORAL 03/11/18 21:45 04/10/18 21:44 03/12/18 09:18 Lorazepam (Ativan 2mg/ml 1ml) 1 mg Q4H PRN IV For Anxiety 03/11/18 12:00 03/18/18 11:59 Mirtazapine (Remeron) 15 mg BEDTIME ORAL 03/10/18 22:00 04/09/18 21:59 03/11/18 21:29 Morphine Sulfate (Morphine Sulfate) 1 mg Q4H PRN IVP For Pain 03/10/18 21:15 03/17/18 21:14 Ondansetron HCl (Zofran) 4 mg Q6H PRN IVP Nausea & Vomiting 03/10/18 21:15 04/09/18 21:14 Polyethylene Glycol (Miralax) 17 gm HSPRN PRN ORAL Constipation 03/10/18 21:15 04/09/18 21:14 Risperidone (RisperDAL) 2 mg BEDTIME ORAL 03/11/18 21:00 04/10/18 20:59 03/11/18 21:29 Sodium Chloride 500 ml @ 30 mls/hr ONCE ONCE IV 03/12/18 22:00 03/13/18 14:39 Sodium Chloride 1,000 ml @ 30 mls/hr ONCE IV 03/11/18 09:00 03/12/18 21:00 03/12/18 09:19 Zolpidem Tartrate (Ambien) 5 mg HSPRN PRN ORAL Insomnia 03/10/18 21:15 03/17/18 21:14 03/11/18 22:05 Assessment/Plan Status: stable Assessment/Plan Assessment (1) Encephalopathy acute (2) Hyponatremia (3) Seizure disorder (4) HTN (hypertension) (5) Anemia, chronic disease (6) Major depression (7) Atrial flutter (8) CAD s/p stents Plan: Atrial fibrillation/flutter: Continue eliquis, rates controlled on cardizem Hypertension: Hydralazine, cardizem, Echocardiogram to evaluate filling pressures Pulmonary edema: Continue IV lasix, transition to PO, monitor I/O renal function Hyponatremia: likely from pulmonary infiltrates/edema, continue IV 3% saline per nephrology, urine/serum electrolytes Dysphagia: speech evaluation, soft puree diet CAD: continue aspirin/statin, outpatient stress test when stable Josue Wakefield MD Mar 12, 2018 13:18
[2018-03-12] MEDS ORDERED: HydrALAZINE 25mg tab ORAL PRN ×2 (15:30)
[2018-03-12] MEDS ORDERED: NACL 3% IV ONE (15:30)
[2018-03-12] MEDS ORDERED: Morphine Sulfate 2mg/ml Inj IVP PRN (15:30)
[2018-03-12] MEDS ORDERED: Miralax 17gm pkt ORAL PRN (15:30)
--- NOTE | 2018-03-12 15:32 | Nephrology Progress Note ---
Assessment/Plan Problem List: (1) Hyponatremia (2) COPD (chronic obstructive pulmonary disease) (3) HTN (hypertension) (4) Seizure disorder Assessment Hx Cardiac Problems: Yes Hx Hypertension: Yes Hx COPD: Yes Hx Gastrointestinal Problems: Yes Hx Neurological Problems: Yes Hx Cerebrovascular Accident: Yes Hx Dementia: Yes Hx Seizures: Yes - epilepsy Hx Tremors: Yes Hx Vertigo: Yes Hx Dizziness: Yes Hx Syncope: Yes Hx Headaches: Yes - occasional Hx Weakness: Yes Hx Fatigue: Yes Assessment/Plan Hyponatremia etiology ? Plan Plan: monitor Uric acid check Serum Os check Urine Os check Carol 3% Saline and Lasix PO fluid restriction López monitor serum Na Subjective ROS Limited/Unobtainable: No Constitutional: Reports: malaise, weakness Objective Objective Last 24 Hour Vital Signs Date Time Temp Pulse Resp B/P (MAP) Pulse Ox O2 Delivery O2 Flow Rate FiO2 03/12/18 12:52 133/85 03/12/18 12:51 82 133/85 03/12/18 12:20 96 Venturi Mask 6.0 35 03/12/18 12:00 93 03/12/18 12:00 97.9 82 20 133/85 (101) 96 97.9 03/12/18 09:00 Room Air 03/12/18 08:09 95 Venturi Mask 10.0 45 03/12/18 08:09 85 20 Venturi Mask 10.0 45 03/12/18 08:09 Venturi Mask 10.0 45 03/12/18 08:00 97.0 98 20 131/62 (85) 96 97.0 03/12/18 08:00 96 03/12/18 06:00 125/68 03/12/18 06:00 93 125/68 03/12/18 04:00 93 03/12/18 04:00 98.4 96 19 125/68 (87) 96 98.4 03/12/18 00:00 93 03/12/18 00:00 98.2 93 24 118/62 (80) 93 98.2 03/11/18 23:52 121/68 03/11/18 23:52 90 121/68 03/11/18 22:54 90 20 Venturi Mask 10.0 45 03/11/18 22:52 Venturi Mask 10.0 45 03/11/18 22:52 96 Venturi Mask 10.0 45 03/11/18 21:00 Room Air 03/11/18 20:00 111 03/11/18 20:00 98.3 82 22 133/53 (79) 91 98.3 03/11/18 18:46 130/61 03/11/18 18:45 114 130/61 03/11/18 16:00 114 03/11/18 16:00 98.2 62 20 130/61 (84) 95 98.2 Intake and Output 03/11/18 03/12/18 19:00 07:00 Intake Total 360 ml 120 ml Output Total 300 ml 625 ml Balance 60 ml -505 ml Intake Oral 360 ml 120 ml Output Urine Total 300 ml 625 ml # Voids 2 # Bowel Movements 1 1 Laboratory Tests 03/11/18 15:35: Osmolality 292L, Uric Acid 2.9, Phosphorus Level 4.1, Magnesium Level 1.6L 03/11/18 16:00: Urine Osmolality 199L, Urine Random Sodium 51 03/11/18 23:30: Arterial Blood pH 7.318L, Arterial Blood Partial Pressure CO2 58.8*H, Arterial Blood Partial Pressure O2 75.2, Arterial Blood HCO3 29.5H, Arterial Blood Oxygen Saturation 93.3L, Arterial Blood Base Excess 2.1H, Ian Test Positive 03/12/18 06:30: White Blood Count 9.9, Red Blood Count 4.21, Hemoglobin 12.7, Hematocrit 36.6L, Mean Corpuscular Volume 87, Mean Corpuscular Hemoglobin 30.0, Mean Corpuscular Hemoglobin Concent 34.6, Red Cell Distribution Width 13.6, Platelet Count 165, Mean Platelet Volume 6.9, Neutrophils (%) (Auto) 83.6H, Lymphocytes (%) (Auto) 6.8L, Monocytes (%) (Auto) 7.1, Eosinophils (%) (Auto) 1.4, Basophils (%) (Auto ) 1.1, Sodium Level 124L, Potassium Level 4.1, Chloride Level 89L, Carbon Dioxide Level 33H, Anion Gap 2L, Blood Urea Nitrogen 8, Creatinine 0.6, Estimat Glomerular Filtration Rate , Glucose Level 114H, Calcium Level 8.5, Total Bilirubin 0.4, Aspartate Amino Transf (AST/SGOT) 9L, Alanine Aminotransferase ( ALT/SGPT) 17, Alkaline Phosphatase 61, Pro-B-Type Natriuretic Peptide 1737H, Total Protein 6.2L, Albumin 3.0L, Globulin 3.2, Albumin/Globulin Ratio 0.9L Height (Feet): 5 Height (Inches): 3.00 Weight (Pounds): 189 General Appearance: no apparent distress, lethargic Cardiovascular: normal rate Respiratory/Chest: decreased breath sounds Abdomen: soft Danilo Huber MD Mar 12, 2018 15:32
--- NOTE | 2018-03-12 15:45 | Consultation ---
History of Present Illness General Date patient seen: Mar 12, 2018 Chief Complaint: Generalized Weakness Reason for Consultation: wounds Present Illness HPI 77 year old female presented with fatigue, weakness, sob. During admission noted to have multiple wounds requiring care. Atypical wounds. Surgery called to evaluate. patient seen, chart reviewed, patient examined. Allergies: Coded Allergies: PIPERACILLIN (Unverified Allergy, Unknown, 03/10/18) TAZOBACTAM (Unverified Allergy, Unknown, 03/10/18) Medication History Scheduled Al Hydroxide/mg Hydroxide (Mag-Al Plus Suspension), 30 ML PO prn Q6hr, (Reported ) Allopurinol* (Allopurinol*), 100 MG ORAL DAILY Apixaban (Eliquis), 5 MG ORAL BID Atorvastatin Calcium* (Lipitor*), 10 MG ORAL BEDTIME Bisacodyl* (Dulcolax*), 10 MG ORAL PRN daily, (Reported) Bupropion HCl (Wellbutrin), 150 MG ORAL DAILY, (Reported) Cefdinir (Cefdinir), 300 MG PO BID, (Reported) Diclofenac Sodium (Voltaren), 100 GM TP BID, (Reported) Diltiazem Hcl* (Cardizem*), 60 MG ORAL Q6H Divalproex Sodium* (Depakote*), 250 MG PO Q12HR, (Reported) Divalproex Sodium* (Depakote Er*), 250 MG ORAL EVERY 12 HOURS, (Reported) Docusate Sodium* (Docusate Sodium*), 250 MG ORAL DAILY, (Reported) Furosemide* (Lasix*), 40 MG ORAL DAILY, (Reported) Hydralazine HCl (Hydralazine HCl), 25 MG PO Q6HR, (Reported) Lisinopril (Lisinopril*), 5 MG ORAL DAILY, (Reported) Metoprolol Tartrate (Metoprolol Tartrate), 25 MG ORAL Q12HR Mirtazapine* (Mirtazapine*), 15 MG ORAL BEDTIME, (Reported) Multivitamin With Minerals (Multivitamins With Minerals*), 1 TAB ORAL DAILY, ( Reported) Nitrofurantoin Monohyd/M-Cryst* (Macrobid 100 Mg*), 100 MG ORAL EVERY 12 HOURS, (Reported) Nitroglycerin (Nitroglycerin Patch), 1 EACH TD Q6HR, (Reported) Harvard-3 Fatty Acids/Fish Oil* (Fish Oil 1,000 Mg Softgel*), 1 CAP ORAL DAILY, ( Reported) Pantoprazole* (Pantoprazole*), 40 MG ORAL DAILY, (Reported) Pseudoephedrine Hcl (Sudogest), 30 MG PO BID, (Reported) Ranitidine Hcl (Ranitidine Hcl), 150 MG ORAL BEDTIME, (Reported) Risperidone* (Risperdal*), 0.5 MG ORAL BID, (Reported) Rivaroxaban (Xarelto*), 10 MG ORAL DAILY, (Reported) Solifenacin Succinate (Vesicare*), 10 MG ORAL DAILY, (Reported) Solifenacin Succinate (Vesicare*), 10 MG ORAL DAILY, (Reported) Trimethoprim/Sulfamethoxazole 160/800* (Bactrim Ds Tablet*), 1 TAB ORAL TWICE A DAY, (Reported) Vancomycin/0.9 % Sod Chloride (Vancomycin-0.9% NaCl 1 G/250), 1 GM IV Q12HR, ( Reported) Scheduled PRN Acetaminophen (Acetaminophen), 650 MG ORAL Q4HR PRN for Mild Pain/Temp > 100.5, (Reported) Bisacodyl (Bisacodyl), 10 MG RC for Constipation, (Reported) Hydrocodone Bit/Acetaminophen 5-325* ([place] 5-325 Tablet*), 1 TAB ORAL Q6HR PRN for For Pain, (Reported) Ipratropium/Albuterol Sulfate (DuoNeb 0.5-3(2.5)mg/3ml), 3 ML HHN EVERY 6 HOURS PRN for Shortness of Breath, (Reported) Polyethylene Glycol 3350* (Miralax*), 17 GM ORAL PRN at bedtime PRN for Constipation, (Reported) Promethazine/Phenyleph/Codeine (Promethazine Vc-Codeine Syrup), 10 ML ORAL Q4H PRN for For Cough, (Reported) Tramadol Hcl* (Ultram*), 50 MG ORAL Q12HR PRN for For Pain, (Reported) Zolpidem Tartrate* (Ambien*), 5 MG ORAL BEDTIME PRN for Insomnia, (Reported) Miscellaneous Medications Dextran 70/Hypromellose (Artificial Tears Eye Drops*), 1 DROP BOTH EYES, ( Reported) Patient History Limited by: medical condition History Provided By: Medical Record, PMD Healthcare decision maker Resuscitation status Full Code Advanced Directive on File No Past Medical/Surgical History Past Medical/Surgical History: (1) Anxiety (2) Failure to thrive (3) HTN (hypertension) (4) Recurrent falls (5) onchymycosis (6) Atrial flutter (7) CAD (coronary artery disease) (8) Dementia (9) Hyponatremia (10) Constipation (11) Accelerated hypertension (12) Atrial fibrillation with RVR (13) Pulmonary edema (14) Seizure disorder (15) H/O ETOH abuse (16) Acute diastolic CHF (congestive heart failure) (17) UTI (lower urinary tract infection) (18) COPD (chronic obstructive pulmonary disease) (19) Bipolar depression (20) Cerebral vascular disease (21) Hypovolemic shock (22) Hemorrhagic shock (23) Hypokalemia (24) Gout (25) Bacteremia (26) Gastrointestinal bleeding (27) Major depression (28) Sepsis (29) ATN (acute tubular necrosis) (30) Encephalopathy acute (31) Healthcare-associated pneumonia (32) Wheelchair bound (33) Anemia, chronic disease (34) Acute encephalopathy (35) Intractable back pain (36) Recurrent falls (37) Incontinence in female (38) Respiratory failure, acute (39) Pleural effusion Review of Systems All Other Systems: negative except mentioned in HPI Physical Exam General Appearance: no apparent distress Lines, tubes and drains: other HEENT: mucous membranes moist Neck: other Respiratory/Chest: decreased breath sounds, other Cardiovascular/Chest: normal rate Abdomen: soft, no organomegaly, no mass Extremities: non-tender Skin Exam: other Neurologic: alert Last 24 Hour Vital Signs Date Time Temp Pulse Resp B/P (MAP) Pulse Ox O2 Delivery O2 Flow Rate FiO2 03/12/18 12:52 133/85 03/12/18 12:51 82 133/85 03/12/18 12:20 96 Venturi Mask 6.0 35 03/12/18 12:00 93 03/12/18 12:00 97.9 82 20 133/85 (101) 96 97.9 03/12/18 09:00 Room Air 03/12/18 08:09 95 Venturi Mask 10.0 45 03/12/18 08:09 85 20 Venturi Mask 10.0 45 03/12/18 08:09 Venturi Mask 10.0 45 03/12/18 08:00 97.0 98 20 131/62 (85) 96 97.0 03/12/18 08:00 96 03/12/18 06:00 125/68 03/12/18 06:00 93 125/68 03/12/18 04:00 93 03/12/18 04:00 98.4 96 19 125/68 (87) 96 98.4 03/12/18 00:00 93 03/12/18 00:00 98.2 93 24 118/62 (80) 93 98.2 03/11/18 23:52 121/68 03/11/18 23:52 90 121/68 03/11/18 22:54 90 20 Venturi Mask 10.0 45 03/11/18 22:52 Venturi Mask 10.0 45 03/11/18 22:52 96 Venturi Mask 10.0 45 03/11/18 21:00 Room Air 03/11/18 20:00 111 03/11/18 20:00 98.3 82 22 133/53 (79) 91 98.3 03/11/18 18:46 130/61 03/11/18 18:45 114 130/61 03/11/18 16:00 114 03/11/18 16:00 98.2 62 20 130/61 (84) 95 98.2 Intake and Output 03/11/18 03/12/18 19:00 07:00 Intake Total 360 ml 120 ml Output Total 300 ml 625 ml Balance 60 ml -505 ml Intake Oral 360 ml 120 ml Output Urine Total 300 ml 625 ml # Voids 2 # Bowel Movements 1 1 Laboratory Tests Test 03/11/18 16:00 03/11/18 23:30 03/12/18 06:30 Urine Osmolality 199 mOsm/kg (429-449) L Urine Random Sodium 51 mmol/L (20-110) Arterial Blood pH 7.318 (7.350-7.450) Arterial Blood Partial Pressure CO2 58.8 mmHg (35.0-45.0) *H Arterial Blood Partial Pressure O2 75.2 mmHg (75.0-100.0) Arterial Blood HCO3 29.5 mmol/L (22.0-26.0) H Arterial Blood Oxygen Saturation 93.3 % (95-100) L Arterial Blood Base Excess 2.1 (-2-2) H Ian Test Positive White Blood Count 9.9 K/UL (4.8-10.8) Red Blood Count 4.21 M/UL (4.20-5.40) Hemoglobin 12.7 G/DL (12.0-16.0) Hematocrit 36.6 % (37.0-47.0) L Mean Corpuscular Volume 87 FL (80-99) Mean Corpuscular Hemoglobin 30.0 PG (27.0-31.0) Mean Corpuscular Hemoglobin Concent 34.6 G/DL (32.0-36.0) Red Cell Distribution Width 13.6 % (11.6-14.8) Platelet Count 165 K/UL (150-450) Mean Platelet Volume 6.9 FL (6.5-10.1) Neutrophils (%) (Auto) 83.6 % (45.0-75.0) H Lymphocytes (%) (Auto) 6.8 % (20.0-45.0) L Monocytes (%) (Auto) 7.1 % (1.0-10.0) Eosinophils (%) (Auto) 1.4 % (0.0-3.0) Basophils (%) (Auto) 1.1 % (0.0-2.0) Sodium Level 124 MMOL/L (136-145) L Potassium Level 4.1 MMOL/L (3.5-5.1) Chloride Level 89 MMOL/L (98-107) L Carbon Dioxide Level 33 MMOL/L (21-32) H Anion Gap 2 mmol/L (5-15) L Blood Urea Nitrogen 8 mg/dL (7-18) Creatinine 0.6 MG/DL (0.55-1.30) Estimat Glomerular Filtration Rate mL/min (>60) Glucose Level 114 MG/DL (74-106) H Calcium Level 8.5 MG/DL (8.5-10.1) Total Bilirubin 0.4 MG/DL (0.2-1.0) Aspartate Amino Transf (AST/SGOT) 9 U/L (15-37) L Alanine Aminotransferase (ALT/SGPT) 17 U/L (12-78) Alkaline Phosphatase 61 U/L (46-116) Pro-B-Type Natriuretic Peptide 1737 pg/mL (0-125) H Total Protein 6.2 G/DL (6.4-8.2) L Albumin 3.0 G/DL (3.4-5.0) L Globulin 3.2 g/dL Albumin/Globulin Ratio 0.9 (1.0-2.7) L Height (Feet): 5 Height (Inches): 3.00 Weight (Pounds): 189 Medications Current Medications Medications (Trade) Dose Ordered Sig/Ibrahima Route PRN Reason Start Time Stop Time Status Last Admin Dose Admin Acetaminophen (Tylenol) 650 mg Q4H PRN ORAL fever 03/12/18 15:28 04/09/18 15:27 Albuterol/ Ipratropium (Albuterol/ Ipratropium) 3 ml Q4HRT PRN HHN Shortness of Breath 03/12/18 19:00 03/16/18 23:29 Apixaban (Eliquis) 5 mg BID ORAL 03/12/18 18:00 04/10/18 08:59 Atorvastatin Calcium (Lipitor) 10 mg BEDTIME ORAL 03/12/18 21:00 04/10/18 20:59 Dextrose (Dextrose 50%) 25 ml Q30M PRN IV Hypoglycemia 03/12/18 15:45 04/11/18 15:31 Dextrose (Dextrose 50%) 50 ml Q30M PRN IV hypoglycemia 03/12/18 15:45 04/11/18 15:44 Diltiazem HCl (Cardizem) 90 mg Q8HR ORAL 03/12/18 22:00 04/10/18 00:00 Furosemide (Lasix) 10 mg EVERY 6 HOURS IV 03/12/18 18:00 04/10/18 17:59 Hydralazine HCl (Apresoline) 25 mg Q4H PRN ORAL bp over 160 syst 03/12/18 15:30 04/11/18 15:29 Iopamidol (Isovue-370 150ml) 150 ml NOW PRN INJ Radiology Procedure 03/13/18 05:00 03/14/18 05:00 Lansoprazole (Prevacid) 30 mg Q12HR ORAL 03/12/18 21:00 04/10/18 21:44 Lorazepam (Ativan 2mg/ml 1ml) 1 mg Q4H PRN IV For Anxiety 03/12/18 16:00 03/18/18 11:59 Mirtazapine (Remeron) 15 mg BEDTIME ORAL 03/12/18 21:00 04/09/18 21:59 Morphine Sulfate (Morphine Sulfate) 1 mg Q4H PRN IVP For Pain 03/12/18 15:30 03/17/18 15:29 Ondansetron HCl (Zofran) 4 mg Q6H PRN IVP Nausea & Vomiting 03/12/18 15:30 04/09/18 15:29 Polyethylene Glycol (Miralax) 17 gm HSPRN PRN ORAL Constipation 03/12/18 15:30 04/09/18 15:29 Risperidone (RisperDAL) 2 mg BEDTIME ORAL 03/12/18 21:00 04/10/18 20:59 Sodium Chloride 500 ml @ 30 mls/hr ONCE ONCE IV 03/12/18 22:00 03/13/18 14:39 Sodium Chloride 1,000 ml @ 30 mls/hr ONCE IV 03/11/18 09:00 03/12/18 21:00 03/12/18 09:19 Zolpidem Tartrate (Ambien) 5 mg HSPRN PRN ORAL Insomnia 03/12/18 21:15 03/17/18 21:14 Assessment/Plan Problem List: (1) Skin rash Assessment & Plan: Patient presents with pimply red rash to both axillae, back , bilateral upper extremities, groin areas, posterior aspects off knees, and both feet around malleoli. Pt verbalized skin very itchy and nurse on unit observed pt to be scratching skin. Moisture intertrigo L groin. Full thickness pressure injury to R buttocks (L)1cm x (W)1cm with 50% slough, otherwise granular. Edges adherent and dry .Erythema with moisture intertrigo cleft of buttocks Both heels red and non-blanchable. All wounds present upon admission and will be cared for during hospital stay. Tx.Plan: Cleanse with saline. Apply Triad Paste.Cover with Biatain daily and prn. Apply Triad Paste to Cleft of Buttocks and groin areas post each incontinence care. Encourage and assist with repositioning at least every 2hours or as tolerated. Surface support mattress. Off-load heels with pillow. ICD Codes: R21 - Rash and other nonspecific skin eruption SNOMED: [id number] Basil Gonzalez Mar 12, 2018 15:45
[2018-03-12 16:00] VITALS: BP 123/61
[2018-03-12] MEDS ORDERED: LORazepam Inj 2mg/ml 1ml IV PRN (16:00)
--- NOTE | 2018-03-12 17:26 | Internal Med Progress Note ---
Subjective Date of Service: Mar 12, 2018 Physician Name DuttaJuan Attending Physician Yonathan Mendoza MD Current Medications Medications (Trade) Dose Ordered Sig/Ibrahima Route PRN Reason Start Time Stop Time Status Last Admin Dose Admin Acetaminophen (Tylenol) 650 mg Q4H PRN ORAL fever 03/12/18 15:28 04/09/18 15:27 Albuterol/ Ipratropium (Albuterol/ Ipratropium) 3 ml Q4HRT PRN HHN Shortness of Breath 03/12/18 19:00 03/16/18 23:29 Apixaban (Eliquis) 5 mg BID ORAL 03/12/18 18:00 04/10/18 08:59 Atorvastatin Calcium (Lipitor) 10 mg BEDTIME ORAL 03/12/18 21:00 04/10/18 20:59 Dextrose (Dextrose 50%) 25 ml Q30M PRN IV Hypoglycemia 03/12/18 15:45 04/11/18 15:31 Dextrose (Dextrose 50%) 50 ml Q30M PRN IV hypoglycemia 03/12/18 15:45 04/11/18 15:44 Diltiazem HCl (Cardizem) 90 mg Q8HR ORAL 03/12/18 22:00 04/10/18 00:00 Furosemide (Lasix) 10 mg EVERY 6 HOURS IV 03/12/18 18:00 04/10/18 17:59 Hydralazine HCl (Apresoline) 25 mg Q4H PRN ORAL bp over 160 syst 03/12/18 15:30 04/11/18 15:29 Iopamidol (Isovue-370 150ml) 150 ml NOW PRN INJ Radiology Procedure 03/13/18 05:00 03/14/18 05:00 Lansoprazole (Prevacid) 30 mg Q12HR ORAL 03/12/18 21:00 04/10/18 21:44 Lorazepam (Ativan 2mg/ml 1ml) 1 mg Q4H PRN IV For Anxiety 03/12/18 16:00 03/18/18 11:59 Mirtazapine (Remeron) 15 mg BEDTIME ORAL 03/12/18 21:00 04/09/18 21:59 Morphine Sulfate (Morphine Sulfate) 1 mg Q4H PRN IVP For Pain 03/12/18 15:30 03/17/18 15:29 Ondansetron HCl (Zofran) 4 mg Q6H PRN IVP Nausea & Vomiting 03/12/18 15:30 04/09/18 15:29 Polyethylene Glycol (Miralax) 17 gm HSPRN PRN ORAL Constipation 03/12/18 15:30 04/09/18 15:29 Risperidone (RisperDAL) 2 mg BEDTIME ORAL 03/12/18 21:00 04/10/18 20:59 Sodium Chloride 500 ml @ 30 mls/hr ONCE ONCE IV 03/12/18 22:00 03/13/18 14:39 Sodium Chloride 1,000 ml @ 30 mls/hr ONCE IV 03/11/18 09:00 03/12/18 21:00 03/12/18 09:19 Zolpidem Tartrate (Ambien) 5 mg HSPRN PRN ORAL Insomnia 03/12/18 21:15 03/17/18 21:14 Allergies: Coded Allergies: PIPERACILLIN (Unverified Allergy, Unknown, 03/10/18) TAZOBACTAM (Unverified Allergy, Unknown, 03/10/18) ROS Limited/Unobtainable: Yes Subjective 77 YO F admitted with generalized weakness. Now hyponatremia. Cover for Int Jose A-Dr Mendoza Objective Last Vital Signs Date Time Temp Pulse Resp B/P (MAP) Pulse Ox O2 Delivery O2 Flow Rate FiO2 03/12/18 12:52 133/85 03/12/18 12:51 82 03/12/18 12:20 96 Venturi Mask 6.0 35 03/12/18 12:00 97.9 20 97.9 Laboratory Tests Test 03/11/18 23:30 03/12/18 06:30 Arterial Blood pH 7.318 (7.350-7.450) Arterial Blood Partial Pressure CO2 58.8 mmHg (35.0-45.0) *H Arterial Blood Partial Pressure O2 75.2 mmHg (75.0-100.0) Arterial Blood HCO3 29.5 mmol/L (22.0-26.0) H Arterial Blood Oxygen Saturation 93.3 % (95-100) L Arterial Blood Base Excess 2.1 (-2-2) H Ian Test Positive White Blood Count 9.9 K/UL (4.8-10.8) Red Blood Count 4.21 M/UL (4.20-5.40) Hemoglobin 12.7 G/DL (12.0-16.0) Hematocrit 36.6 % (37.0-47.0) L Mean Corpuscular Volume 87 FL (80-99) Mean Corpuscular Hemoglobin 30.0 PG (27.0-31.0) Mean Corpuscular Hemoglobin Concent 34.6 G/DL (32.0-36.0) Red Cell Distribution Width 13.6 % (11.6-14.8) Platelet Count 165 K/UL (150-450) Mean Platelet Volume 6.9 FL (6.5-10.1) Neutrophils (%) (Auto) 83.6 % (45.0-75.0) H Lymphocytes (%) (Auto) 6.8 % (20.0-45.0) L Monocytes (%) (Auto) 7.1 % (1.0-10.0) Eosinophils (%) (Auto) 1.4 % (0.0-3.0) Basophils (%) (Auto) 1.1 % (0.0-2.0) Sodium Level 124 MMOL/L (136-145) L Potassium Level 4.1 MMOL/L (3.5-5.1) Chloride Level 89 MMOL/L (98-107) L Carbon Dioxide Level 33 MMOL/L (21-32) H Anion Gap 2 mmol/L (5-15) L Blood Urea Nitrogen 8 mg/dL (7-18) Creatinine 0.6 MG/DL (0.55-1.30) Estimat Glomerular Filtration Rate mL/min (>60) Glucose Level 114 MG/DL (74-106) H Calcium Level 8.5 MG/DL (8.5-10.1) Total Bilirubin 0.4 MG/DL (0.2-1.0) Aspartate Amino Transf (AST/SGOT) 9 U/L (15-37) L Alanine Aminotransferase (ALT/SGPT) 17 U/L (12-78) Alkaline Phosphatase 61 U/L (46-116) Pro-B-Type Natriuretic Peptide 1737 pg/mL (0-125) H Total Protein 6.2 G/DL (6.4-8.2) L Albumin 3.0 G/DL (3.4-5.0) L Globulin 3.2 g/dL Albumin/Globulin Ratio 0.9 (1.0-2.7) L Microbiology Date/Time Source Procedure Growth Status 03/10/18 14:21 Blood Blood Culture - Preliminary NO GROWTH AFTER 24 HOURS Resulted 03/10/18 14:15 Blood Blood Culture - Preliminary NO GROWTH AFTER 24 HOURS Resulted 03/10/18 17:45 Nasal Nares MRSA Culture - Final Staphylococcus Aureus - Mrsa Complete 03/10/18 17:45 Rectum VRE Culture - Final Enterococcus Faecalis - Vre Complete 03/10/18 17:45 Rectum - Final NO CARBAPENEM-RESISTANT ENTEROBACTERI... Complete Intake and Output 03/11/18 03/12/18 19:00 07:00 Intake Total 360 ml 120 ml Output Total 300 ml 625 ml Balance 60 ml -505 ml Intake Oral 360 ml 120 ml Output Urine Total 300 ml 625 ml # Voids 2 # Bowel Movements 1 1 Objective PHYSICAL EXAMINATION: GENERAL: The patient is a well-developed, well-nourished white female, in no apparent distress. HEENT: Eyes, pupils equal and responsive to light and accommodation. Extraocular movements are intact. NECK: Supple without lymphadenopathy. CHEST: Lungs are clear to auscultation bilaterally without wheezes or rales. CARDIOVASCULAR: Regular rate. S1, S2 are normal without murmurs, rubs, or gallops. ABDOMEN: Soft, nontender, and nondistended. Positive bowel sounds. No evidence of hepatosplenomegaly. Currently, no rebound or guarding noted. EXTREMITIES: Negative for clubbing, cyanosis, or edema. RECTAL: Refused. GENITAL: Refused. NEUROLOGIC: Cranial nerves II through XII are grossly intact without focal deficits. Assessment/Plan Problem List: (1) Generalized weakness (2) Deep vein thrombosis (DVT) of left lower extremity Assessment & Plan: Continue eliquis (3) Encephalopathy (4) Major depression (5) Hyponatremia Assessment & Plan: Workup in progress. See nephrology note. (6) Seizure disorder (7) COPD (chronic obstructive pulmonary disease) (8) HTN (hypertension) Assessment & Plan: Continue cardizem and hydralazine Status: not improved Juan Dutta MD Mar 12, 2018 17:26
[2018-03-12] MEDS ORDERED: Albuterol/Ipratropium 3ml neb HHN PRN (19:00)
[2018-03-12 20:00] VITALS: BP 140/60
[2018-03-12] MEDS ORDERED: dilTIAZem HCl 90mg tab ORAL SCH (22:00)
[2018-03-12] MEDS ORDERED: NaCl 3% 500ml 500 ML IV ONE ×2 (22:00)
[2018-03-12] MEDS: dilTIAZem HCl 90mg tab ORAL SCH (23:02)
[2018-03-13] VITALS: BP 124/63
[2018-03-13 04:00] VITALS: BP 108/51
[2018-03-13] MEDS ORDERED: Isovue-370 150ml vial INJ PRN (05:00)
[2018-03-13] MEDS: dilTIAZem HCl 90mg tab ORAL SCH ×3 (06:05→21:15)
[2018-03-13 07:17] LABS: PHOSPHORUS 4.3 MG/DL (2.5-4.9)
[2018-03-13 07:30] LABS: ALANINE AMINOTRANSFERASE 10 U/L (12-78); ALBUMIN/GLOBULIN RATIO 0.8 (1.0-2.7); ALKALINE PHOSPHATASE 60 U/L (46-116); ANION GAP 6 mmol/L (5-15); ASPARTATE AMINO TRANSFERASE 8 U/L (15-37); BILIRUBIN,TOTAL 0.5 MG/DL (0.2-1.0); BLOOD UREA NITROGEN 6 mg/dL (7-18); CALCIUM 8.6 MG/DL (8.5-10.1); CARBON DIOXIDE 33 MMOL/L (21-32); CHLORIDE 96 MMOL/L (98-107); CREATININE 0.5 MG/DL (0.55-1.30); POTASSIUM 3.8 MMOL/L (3.5-5.1); SODIUM 135 MMOL/L (136-145)
[2018-03-13 07:31] LABS: HEMATOCRIT 40.5 % (37.0-47.0); HEMOGLOBIN 13.2 G/DL (12.0-16.0); MEAN CORPUSCULAR VOLUME 89 FL (80-99); PLATELET COUNT 156 K/UL (150-450); RED BLOOD COUNT 4.57 M/UL (4.20-5.40); RED CELL DISTRIBUTION WIDTH 14.2 % (11.6-14.8); WHITE BLOOD COUNT 9.3 K/UL (4.8-10.8)
[2018-03-13] MEDS: Eliquis 2.5mg tablet ORAL SCH ×2 (08:18→17:21)
[2018-03-13 09:20] VITALS: BP 106/59
--- NOTE | 2018-03-13 10:42 | Diagnostic Imaging Report ---
Indication: Dyspnea Comparison: 03/12/2018 A single view chest radiograph was obtained. Findings: Mild interstitial edema may be present. There is evidence of a left pleural effusion. Cardiac silhouette is enlarged and stable. IMPRESSION: No change from one day earlier
--- NOTE | 2018-03-13 10:46 | Pulmonology Progress Note ---
Assessment/Plan Problems: (1) Encephalopathy acute (2) Hyponatremia (3) Seizure disorder (4) HTN (hypertension) (5) Anemia, chronic disease (6) Major depression Assessment/Plan more alert today Na better heart rate controlled on lasix IV, 10 mg q 6 yours respiratory treatment Neuro evaluation titrate cardiac meds swallow study aspiration precaution. Subjective ROS Limited/Unobtainable: No Constitutional: Reports: no symptoms HEENT: Repors: no symptoms Respiratory: Reports: no symptoms Allergies: Coded Allergies: PIPERACILLIN (Unverified Allergy, Unknown, 03/10/18) TAZOBACTAM (Unverified Allergy, Unknown, 03/10/18) Objective Last 24 Hour Vital Signs Date Time Temp Pulse Resp B/P (MAP) Pulse Ox O2 Delivery O2 Flow Rate FiO2 03/13/18 09:20 96.0 60 22 106/59 (75) 94 96.0 03/13/18 08:44 60 03/13/18 08:32 Venturi Mask 8.0 03/13/18 08:15 Venturi Mask 8.0 40 03/13/18 08:14 96 Venturi Mask 8.0 40 03/13/18 08:13 60 22 Venturi Mask 8.0 40 03/13/18 06:05 88 124/76 03/13/18 04:00 61 03/13/18 04:00 97.4 61 20 108/51 (70) 98 97.4 03/13/18 00:00 93 03/13/18 00:00 97.4 95 16 124/63 (83) 98 97.4 03/12/18 23:02 90 140/60 03/12/18 20:00 97.6 94 16 140/60 (86) 98 97.6 03/12/18 20:00 Venturi Mask 6.0 03/12/18 20:00 95 03/12/18 16:00 78 03/12/18 16:00 98.0 74 16 123/61 (81) 98 98.0 03/12/18 12:52 133/85 03/12/18 12:51 82 133/85 03/12/18 12:20 96 Venturi Mask 6.0 35 03/12/18 12:00 93 03/12/18 12:00 97.9 82 20 133/85 (101) 96 97.9 Intake and Output 03/12/18 03/13/18 19:00 07:00 Intake Total 300 ml 345 ml Output Total 1350 ml 500 ml Balance -1050 ml -155 ml IV Total 300 ml 345 ml Output Urine Total 1350 ml 500 ml # Bowel Movements 1 1 General Appearance: WD/WN HEENT: normocephalic Respiratory/Chest: chest wall non-tender, lungs clear, crackles/rales Cardiovascular: normal peripheral pulses, normal rate Abdomen: normal bowel sounds, soft, non tender Genitourinary: normal external genitalia Extremities: no cyanosis Skin: no rash Neurologic/Psychiatric: steel cutter II-XII grossly normal Microbiology Date/Time Source Procedure Growth Status 03/10/18 14:21 Blood Blood Culture - Preliminary NO GROWTH AFTER 48 HOURS Resulted 03/10/18 14:15 Blood Blood Culture - Preliminary NO GROWTH AFTER 48 HOURS Resulted 03/10/18 17:45 Nasal Nares MRSA Culture - Final Staphylococcus Aureus - Mrsa Complete 03/10/18 17:45 Rectum VRE Culture - Final Enterococcus Faecalis - Vre Complete 03/10/18 17:45 Rectum - Final NO CARBAPENEM-RESISTANT ENTEROBACTERI... Complete Laboratory Tests 03/13/18 06:04: White Blood Count 9.3, Red Blood Count 4.57, Hemoglobin 13.2, Hematocrit 40.5, Mean Corpuscular Volume 89, Mean Corpuscular Hemoglobin 29.0, Mean Corpuscular Hemoglobin Concent 32.7, Red Cell Distribution Width 14.2, Platelet Count 156, Mean Platelet Volume 7.2, Neutrophils (%) (Auto) , Lymphocytes (%) (Auto) , Monocytes (%) (Auto) , Eosinophils (%) (Auto) , Basophils (%) (Auto) , Neutrophils % (Manual) [Pending], Lymphocytes % (Manual) [Pending], Platelet Estimate [Pending], Platelet Morphology [Pending], Sodium Level 135#L, Potassium Level 3.8, Chloride Level 96L, Carbon Dioxide Level 33H, Anion Gap 6, Blood Urea Nitrogen 6L, Creatinine 0.5L, Estimat Glomerular Filtration Rate , Glucose Level 121H, Uric Acid 4.5, Calcium Level 8.6, Phosphorus Level 4.3, Magnesium Level 1.7L, Total Bilirubin 0.5, Aspartate Amino Transf (AST/SGOT) 8L , Alanine Aminotransferase (ALT/SGPT) 10L, Alkaline Phosphatase 60, Pro-B-Type Natriuretic Peptide 2039H, Total Protein 6.6, Albumin 3.0L, Globulin 3.6, Albumin/Globulin Ratio 0.8L Current Medications Medications (Trade) Dose Ordered Sig/Ibrahima Route PRN Reason Start Time Stop Time Status Last Admin Dose Admin Acetaminophen (Tylenol) 650 mg Q4H PRN ORAL fever 03/12/18 15:28 04/09/18 15:27 Albuterol/ Ipratropium (Albuterol/ Ipratropium) 3 ml Q4HRT PRN HHN Shortness of Breath 03/12/18 19:00 03/16/18 23:29 Apixaban (Eliquis) 5 mg BID ORAL 03/12/18 18:00 04/10/18 08:59 03/13/18 08:18 Atorvastatin Calcium (Lipitor) 10 mg BEDTIME ORAL 03/12/18 21:00 04/10/18 20:59 03/12/18 20:39 Dextrose (Dextrose 50%) 25 ml Q30M PRN IV Hypoglycemia 03/12/18 15:45 04/11/18 15:31 Dextrose (Dextrose 50%) 50 ml Q30M PRN IV hypoglycemia 03/12/18 15:45 04/11/18 15:44 Diltiazem HCl (Cardizem) 90 mg Q8HR ORAL 03/12/18 22:00 04/10/18 00:00 03/13/18 06:05 Furosemide (Lasix) 10 mg EVERY 6 HOURS IV 03/12/18 18:00 04/10/18 17:59 03/13/18 06:02 Hydralazine HCl (Apresoline) 25 mg Q4H PRN ORAL bp over 160 syst 03/12/18 15:30 04/11/18 15:29 Iopamidol (Isovue-370 150ml) 150 ml NOW PRN INJ Radiology Procedure 03/13/18 05:00 03/14/18 05:00 Lansoprazole (Prevacid) 30 mg Q12HR ORAL 03/12/18 21:00 04/10/18 21:44 03/13/18 08:19 Lorazepam (Ativan 2mg/ml 1ml) 1 mg Q4H PRN IV For Anxiety 03/12/18 16:00 03/18/18 11:59 Magnesium Sulfate 100 ml @ 100 mls/hr Q1H IVPB 03/13/18 10:00 03/13/18 11:59 03/13/18 10:32 Mirtazapine (Remeron) 15 mg BEDTIME ORAL 03/12/18 21:00 04/09/18 21:59 03/12/18 20:39 Morphine Sulfate (Morphine Sulfate) 1 mg Q4H PRN IVP For Pain 03/12/18 15:30 03/17/18 15:29 Ondansetron HCl (Zofran) 4 mg Q6H PRN IVP Nausea & Vomiting 03/12/18 15:30 04/09/18 15:29 Polyethylene Glycol (Miralax) 17 gm HSPRN PRN ORAL Constipation 03/12/18 15:30 04/09/18 15:29 Risperidone (RisperDAL) 2 mg BEDTIME ORAL 03/12/18 21:00 04/10/18 20:59 03/12/18 20:39 Sodium Chloride 500 ml @ 30 mls/hr ONCE ONCE IV 03/12/18 22:00 03/13/18 14:39 03/13/18 01:28 Zolpidem Tartrate (Ambien) 5 mg HSPRN PRN ORAL Insomnia 03/12/18 21:15 03/17/18 21:14 Mendel Sierra MD Mar 13, 2018 10:45
--- NOTE | 2018-03-13 11:03 | Diagnostic Imaging Report ---
Indication: Chest pain Technique: Continuous helical transaxial imaging of the chest was obtained from the thoracic inlet to the upper abdomen during rapid intravenous contrast administration. Arterial phase of enhancement obtained. Coronal 2-D reformats were also obtained and maximum intensity projection images in multiple planes. Study obtained in a Siemens sensation [address] Automatic Exposure Control was utilized. Total Dose length Product (DLP): [address] Dose Index Volume (CTDIvol): 12.62 x 2, 25.25, 33.86 mGy Comparison: None Findings: There is good opacification of the pulmonary artery which appears clear without filling defect. The aorta is moderately calcified with no evidence of aneurysm or dissection. The heart is enlarged. There is a small pericardial effusion. There is a bilateral basilar atelectasis which appears worse on the left accounting for moderate volume loss with shifting of the heart and mediastinum toward the left side of the chest. There is a trace left pleural effusion. There is a trace right pleural effusion. Superimposed pneumonia especially within the left lung is not excluded. In addition there are groundglass opacities present within portions of the upper lobes, nonspecific in nature. The mitral annulus is heavily calcified. The visualized part of the upper abdomen shows gallstones. There are also calcific densities within the calyceal regions of both kidneys bilaterally. The kidneys are only partially imaged on this examination. It is possible although doubtful that the high density foci in the kidneys represents contrast excretion into the collecting systems. This is theoretically possible but not likely given the early phase of scanning. In other words, the study was performed at a time of maximum intensity within the pulmonary artery, which occurs early on. Would not expect collecting system contrast at this scan time. Therefore renal calculi are favored. The bones are osteoporotic. There is a severe compression fracture deformity of the T12 vertebra and mild to moderate compression fracture deformities throughout the thoracic spine. Kyphoplasty has been done at L2. IMPRESSION: No evidence of pulmonary embolus, aortic dissection or aneurysm. Atelectasis of the left lower lobe with associated volume loss as described above. No significant pleural effusion demonstrated. Trace pleural fluid is noted bilaterally. Small pericardial effusion Moderate atherosclerotic vascular disease. Question of thickening of the wall of the upper esophagus in the midesophagus. Consider EGD for further evaluation. Suspected bilateral renal nephrolithiasis. This is incompletely assessed on the current examination. Gallstones. Heavily calcified mitral annulus. Severe T12 vertebral compression fracture, probably old. Other milder compression fracture deformities noted throughout the thoracic spine. Generalized osteoporosis. Status post L2 kyphoplasty The CT scanner at [facility] is accredited by the [employer] and the scans are performed using dose optimization techniques as appropriate to a performed exam including Automatic Exposure control.
--- NOTE | 2018-03-13 11:11 | Infectious Diseases Prog Note ---
Assessment/Plan Assessment/Plan Assessment: Afebrile No leukocytosis -u/a neg -Bcx NTD Acute respiratory distress- now on VM 2ry to vol overload- no evidence of PNA -CXR: Slightly worsening pulmonary vascular congestion. Correlate clinically Hyponatremia Generalized weakness- no evidence of infectious process Itchy Rash- presumed scabies Hx of UTI and bronchitis 09/2017, s/p Rx -100K P.mirabilis (S Ceftriaxone) History of coag-negative Staph bacteremia (in July,), s/p Rx 2 weeks -JIMY tickened MV, no vegetations Hypertension. COPD. History of atrial flutter. CAD status post stent. History of alcohol abuse. History of bilateral hip replacement. Seizure disorder. hx L DVT MRSA and VRE colonized Plan: -Continue to monitor off abx -Empiric treatment for scabies with Permethrin cream and ivermectin x1 -03/10 SP IV Vanco and Cefepime x1 -10/24 SP Cefdnir #5 -10/19/17 SP Levaquin #3 -f/u cx -Monitor CBC/CMP, temperatures -aspiration precautions -Renal and cards f/u -Contact isolation Thank you for this consultation. Will continue to follow along with you. Discussed with RN. Subjective Allergies: Coded Allergies: PIPERACILLIN (Unverified Allergy, Unknown, 03/10/18) TAZOBACTAM (Unverified Allergy, Unknown, 03/10/18) Subjective afebrile no leukocytosis on VM Objective Vital Signs Last 24 Hour Vital Signs Date Time Temp Pulse Resp B/P (MAP) Pulse Ox O2 Delivery O2 Flow Rate FiO2 03/13/18 09:20 96.0 60 22 106/59 (75) 94 96.0 03/13/18 08:44 60 03/13/18 08:32 Venturi Mask 8.0 03/13/18 08:15 Venturi Mask 8.0 40 03/13/18 08:14 96 Venturi Mask 8.0 40 03/13/18 08:13 60 22 Venturi Mask 8.0 40 03/13/18 06:05 88 124/76 03/13/18 04:00 61 03/13/18 04:00 97.4 61 20 108/51 (70) 98 97.4 03/13/18 00:00 93 03/13/18 00:00 97.4 95 16 124/63 (83) 98 97.4 03/12/18 23:02 90 140/60 03/12/18 20:00 97.6 94 16 140/60 (86) 98 97.6 03/12/18 20:00 Venturi Mask 6.0 03/12/18 20:00 95 03/12/18 16:00 78 03/12/18 16:00 98.0 74 16 123/61 (81) 98 98.0 03/12/18 12:52 133/85 03/12/18 12:51 82 133/85 03/12/18 12:20 96 Venturi Mask 6.0 35 03/12/18 12:00 93 03/12/18 12:00 97.9 82 20 133/85 (101) 96 97.9 Height (Feet): 5 Height (Inches): 3.00 Weight (Pounds): 189 Objective GENERAL: The patient is a well-developed, well-nourished white female, in no apparent distress. HEENT: Eyes, pupils equal and responsive to light and accommodation. Extraocular movements are intact. NECK: Supple without lymphadenopathy. CHEST: Lungs are clear to auscultation bilaterally without wheezes or rales. CARDIOVASCULAR: Regular rate. S1, S2 are normal without murmurs, rubs, or gallops. ABDOMEN: Soft, nontender, and nondistended. Positive bowel sounds. No evidence of hepatosplenomegaly. Currently, no rebound or guarding noted. EXTREMITIES: Negative for clubbing, cyanosis, or edema. Microbiology Date/Time Source Procedure Growth Status 03/10/18 14:21 Blood Blood Culture - Preliminary NO GROWTH AFTER 48 HOURS Resulted 03/10/18 14:15 Blood Blood Culture - Preliminary NO GROWTH AFTER 48 HOURS Resulted 03/10/18 17:45 Nasal Nares MRSA Culture - Final Staphylococcus Aureus - Mrsa Complete 03/10/18 17:45 Rectum VRE Culture - Final Enterococcus Faecalis - Vre Complete 03/10/18 17:45 Rectum - Final NO CARBAPENEM-RESISTANT ENTEROBACTERI... Complete Laboratory Tests Test 03/13/18 06:04 White Blood Count 9.3 K/UL (4.8-10.8) Red Blood Count 4.57 M/UL (4.20-5.40) Hemoglobin 13.2 G/DL (12.0-16.0) Hematocrit 40.5 % (37.0-47.0) Mean Corpuscular Volume 89 FL (80-99) Mean Corpuscular Hemoglobin 29.0 PG (27.0-31.0) Mean Corpuscular Hemoglobin Concent 32.7 G/DL (32.0-36.0) Red Cell Distribution Width 14.2 % (11.6-14.8) Platelet Count 156 K/UL (150-450) Mean Platelet Volume 7.2 FL (6.5-10.1) Neutrophils (%) (Auto) % (45.0-75.0) Lymphocytes (%) (Auto) % (20.0-45.0) Monocytes (%) (Auto) % (1.0-10.0) Eosinophils (%) (Auto) % (0.0-3.0) Basophils (%) (Auto) % (0.0-2.0) Differential Total Cells Counted 100 Neutrophils % (Manual) 88 % (45-75) H Lymphocytes % (Manual) 5 % (20-45) L Monocytes % (Manual) 6 % (1-10) Eosinophils % (Manual) 1 % (0-3) Basophils % (Manual) 0 % (0-2) Band Neutrophils 0 % (0-8) Platelet Estimate Adequate Platelet Morphology Normal Red Blood Cell Morphology Normal Sodium Level 135 MMOL/L (136-145) #L Potassium Level 3.8 MMOL/L (3.5-5.1) Chloride Level 96 MMOL/L (98-107) L Carbon Dioxide Level 33 MMOL/L (21-32) H Anion Gap 6 mmol/L (5-15) Blood Urea Nitrogen 6 mg/dL (7-18) L Creatinine 0.5 MG/DL (0.55-1.30) L Estimat Glomerular Filtration Rate mL/min (>60) Glucose Level 121 MG/DL (74-106) H Uric Acid 4.5 MG/DL (2.6-7.2) Calcium Level 8.6 MG/DL (8.5-10.1) Phosphorus Level 4.3 MG/DL (2.5-4.9) Magnesium Level 1.7 MG/DL (1.8-2.4) L Total Bilirubin 0.5 MG/DL (0.2-1.0) Aspartate Amino Transf (AST/SGOT) 8 U/L (15-37) L Alanine Aminotransferase (ALT/SGPT) 10 U/L (12-78) L Alkaline Phosphatase 60 U/L (46-116) Pro-B-Type Natriuretic Peptide 2039 pg/mL (0-125) H Total Protein 6.6 G/DL (6.4-8.2) Albumin 3.0 G/DL (3.4-5.0) L Globulin 3.6 g/dL Albumin/Globulin Ratio 0.8 (1.0-2.7) L Current Medications Medications (Trade) Dose Ordered Sig/Ibrahima Route PRN Reason Start Time Stop Time Status Last Admin Dose Admin Acetaminophen (Tylenol) 650 mg Q4H PRN ORAL fever 03/12/18 15:28 04/09/18 15:27 Albuterol/ Ipratropium (Albuterol/ Ipratropium) 3 ml Q4HRT PRN HHN Shortness of Breath 03/12/18 19:00 03/16/18 23:29 Apixaban (Eliquis) 5 mg BID ORAL 03/12/18 18:00 04/10/18 08:59 03/13/18 08:18 Atorvastatin Calcium (Lipitor) 10 mg BEDTIME ORAL 03/12/18 21:00 04/10/18 20:59 03/12/18 20:39 Dextrose (Dextrose 50%) 25 ml Q30M PRN IV Hypoglycemia 03/12/18 15:45 04/11/18 15:31 Dextrose (Dextrose 50%) 50 ml Q30M PRN IV hypoglycemia 03/12/18 15:45 04/11/18 15:44 Diltiazem HCl (Cardizem) 90 mg Q8HR ORAL 03/12/18 22:00 04/10/18 00:00 03/13/18 06:05 Furosemide (Lasix) 10 mg EVERY 6 HOURS IV 03/12/18 18:00 04/10/18 17:59 03/13/18 06:02 Hydralazine HCl (Apresoline) 25 mg Q4H PRN ORAL bp over 160 syst 03/12/18 15:30 04/11/18 15:29 Iopamidol (Isovue-370 150ml) 150 ml NOW PRN INJ Radiology Procedure 03/13/18 05:00 03/14/18 05:00 Lansoprazole (Prevacid) 30 mg Q12HR ORAL 03/12/18 21:00 04/10/18 21:44 03/13/18 08:19 Lorazepam (Ativan 2mg/ml 1ml) 1 mg Q4H PRN IV For Anxiety 03/12/18 16:00 03/18/18 11:59 Magnesium Sulfate 100 ml @ 100 mls/hr Q1H IVPB 03/13/18 10:00 03/13/18 11:59 03/13/18 10:32 Mirtazapine (Remeron) 15 mg BEDTIME ORAL 03/12/18 21:00 04/09/18 21:59 03/12/18 20:39 Morphine Sulfate (Morphine Sulfate) 1 mg Q4H PRN IVP For Pain 03/12/18 15:30 03/17/18 15:29 Ondansetron HCl (Zofran) 4 mg Q6H PRN IVP Nausea & Vomiting 03/12/18 15:30 04/09/18 15:29 Polyethylene Glycol (Miralax) 17 gm HSPRN PRN ORAL Constipation 03/12/18 15:30 04/09/18 15:29 Risperidone (RisperDAL) 2 mg BEDTIME ORAL 03/12/18 21:00 04/10/18 20:59 03/12/18 20:39 Sodium Chloride 500 ml @ 30 mls/hr ONCE ONCE IV 03/12/18 22:00 03/13/18 14:39 03/13/18 01:28 Zolpidem Tartrate (Ambien) 5 mg HSPRN PRN ORAL Insomnia 03/12/18 21:15 03/17/18 21:14 Danica Nayak M.D. Mar 13, 2018 11:11
--- NOTE | 2018-03-13 11:12 | Cardiology Progress Note ---
Assessment/Plan Status: stable Assessment/Plan Assessment (1) Encephalopathy acute (2) Hyponatremia (3) Seizure disorder (4) HTN (hypertension) (5) Anemia, chronic disease (6) Major depression (7) Atrial flutter (8) CAD s/p stents Plan: Atrial fibrillation/flutter: Continue eliquis, rates controlled on cardizem Hypertension: Hydralazine, cardizem, Echocardiogram to evaluate filling pressures Pulmonary edema: Continue IV lasix, transition to PO, monitor I/O renal function Hyponatremia: likely from pulmonary infiltrates/edema, continue IV 3% saline per nephrology, urine/serum electrolytes Dysphagia: speech evaluation, soft puree diet CAD: continue aspirin/statin, outpatient stress test when stable Subjective Cardiovascular: Reports: no symptoms Respiratory: Reports: no symptoms Gastrointestinal/Abdominal: Reports: no symptoms Genitourinary: Reports: no symptoms Subjective Pt is resting on the bed and confused but more alert. Vitals stable, NA improved. On O2 6L via Venturi mask and SaO2 95% noted. No sign of acute distress noted. Denied pain at this time. On running with 3% NaCl @ 30cc/hr running. She continues to be on lasix. CXR Mild interstitial edema may be present. There is evidence of a left pleural effusion. Objective Last 24 Hour Vital Signs Date Time Temp Pulse Resp B/P (MAP) Pulse Ox O2 Delivery O2 Flow Rate FiO2 03/13/18 09:20 96.0 60 22 106/59 (75) 94 96.0 03/13/18 08:44 60 03/13/18 08:32 Venturi Mask 8.0 03/13/18 08:15 Venturi Mask 8.0 40 03/13/18 08:14 96 Venturi Mask 8.0 40 03/13/18 08:13 60 22 Venturi Mask 8.0 40 03/13/18 06:05 88 124/76 03/13/18 04:00 61 03/13/18 04:00 97.4 61 20 108/51 (70) 98 97.4 03/13/18 00:00 93 03/13/18 00:00 97.4 95 16 124/63 (83) 98 97.4 03/12/18 23:02 90 140/60 03/12/18 20:00 97.6 94 16 140/60 (86) 98 97.6 03/12/18 20:00 Venturi Mask 6.0 03/12/18 20:00 95 03/12/18 16:00 78 03/12/18 16:00 98.0 74 16 123/61 (81) 98 98.0 03/12/18 12:52 133/85 03/12/18 12:51 82 133/85 03/12/18 12:20 96 Venturi Mask 6.0 35 03/12/18 12:00 93 03/12/18 12:00 97.9 82 20 133/85 (101) 96 97.9 General Appearance: no apparent distress, alert, lethargic EENT: PERRL/EOMI, pharynx normal Neck: non-tender, normal alignment, supple, normal inspection, no JVD Rhythm: NSR Cardiovascular: normal peripheral pulses, normal rate, regular rhythm Respiratory/Chest: chest wall non-tender, lungs clear, normal breath sounds, no respiratory distress Abdomen: normal bowel sounds, non tender, soft, no organomegaly, no mass Extremities: normal range of motion, non-tender 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, no motor/sensory deficits Intake and Output 03/12/18 03/13/18 19:00 07:00 Intake Total 300 ml 345 ml Output Total 1350 ml 500 ml Balance -1050 ml -155 ml IV Total 300 ml 345 ml Output Urine Total 1350 ml 500 ml # Bowel Movements 1 1 Laboratory Tests Test 03/13/18 06:04 White Blood Count 9.3 K/UL (4.8-10.8) Red Blood Count 4.57 M/UL (4.20-5.40) Hemoglobin 13.2 G/DL (12.0-16.0) Hematocrit 40.5 % (37.0-47.0) Mean Corpuscular Volume 89 FL (80-99) Mean Corpuscular Hemoglobin 29.0 PG (27.0-31.0) Mean Corpuscular Hemoglobin Concent 32.7 G/DL (32.0-36.0) Red Cell Distribution Width 14.2 % (11.6-14.8) Platelet Count 156 K/UL (150-450) Mean Platelet Volume 7.2 FL (6.5-10.1) Neutrophils (%) (Auto) % (45.0-75.0) Lymphocytes (%) (Auto) % (20.0-45.0) Monocytes (%) (Auto) % (1.0-10.0) Eosinophils (%) (Auto) % (0.0-3.0) Basophils (%) (Auto) % (0.0-2.0) Differential Total Cells Counted 100 Neutrophils % (Manual) 88 % (45-75) H Lymphocytes % (Manual) 5 % (20-45) L Monocytes % (Manual) 6 % (1-10) Eosinophils % (Manual) 1 % (0-3) Basophils % (Manual) 0 % (0-2) Band Neutrophils 0 % (0-8) Platelet Estimate Adequate Platelet Morphology Normal Red Blood Cell Morphology Normal Sodium Level 135 MMOL/L (136-145) #L Potassium Level 3.8 MMOL/L (3.5-5.1) Chloride Level 96 MMOL/L (98-107) L Carbon Dioxide Level 33 MMOL/L (21-32) H Anion Gap 6 mmol/L (5-15) Blood Urea Nitrogen 6 mg/dL (7-18) L Creatinine 0.5 MG/DL (0.55-1.30) L Estimat Glomerular Filtration Rate mL/min (>60) Glucose Level 121 MG/DL (74-106) H Uric Acid 4.5 MG/DL (2.6-7.2) Calcium Level 8.6 MG/DL (8.5-10.1) Phosphorus Level 4.3 MG/DL (2.5-4.9) Magnesium Level 1.7 MG/DL (1.8-2.4) L Total Bilirubin 0.5 MG/DL (0.2-1.0) Aspartate Amino Transf (AST/SGOT) 8 U/L (15-37) L Alanine Aminotransferase (ALT/SGPT) 10 U/L (12-78) L Alkaline Phosphatase 60 U/L (46-116) Pro-B-Type Natriuretic Peptide 2039 pg/mL (0-125) H Total Protein 6.6 G/DL (6.4-8.2) Albumin 3.0 G/DL (3.4-5.0) L Globulin 3.6 g/dL Albumin/Globulin Ratio 0.8 (1.0-2.7) L Microbiology Date/Time Source Procedure Growth Status 03/10/18 14:21 Blood Blood Culture - Preliminary NO GROWTH AFTER 48 HOURS Resulted 03/10/18 14:15 Blood Blood Culture - Preliminary NO GROWTH AFTER 48 HOURS Resulted 03/10/18 17:45 Nasal Nares MRSA Culture - Final Staphylococcus Aureus - Mrsa Complete 03/10/18 17:45 Rectum VRE Culture - Final Enterococcus Faecalis - Vre Complete 03/10/18 17:45 Rectum - Final NO CARBAPENEM-RESISTANT ENTEROBACTERI... Complete Josue Wakefield MD Mar 13, 2018 11:12
[2018-03-13 12:00] VITALS: BP 128/48
--- NOTE | 2018-03-13 15:03 | Diagnostic Imaging Report ---
Indication: Dysphasia Procedure and findings: Real-time fluoroscopic imaging performed in a lateral projection in conjunction with the speech pathologist evaluation. Variable consistencies of barium given per mouth. Findings: Significant abnormalities of both oral and pharyngeal phases of swallowing are demonstrated. Total fluoroscopic time 166 seconds. The study is limited because the projection is oblique. That said, no definite aspiration identified. There may be penetration with thin barium. Abnormal video swallow. Please refer to speech pathology evaluation for more information.
[2018-03-13 16:00] VITALS: BP 135/55
--- NOTE | 2018-03-13 16:25 | Nephrology Progress Note ---
Assessment/Plan Problem List: (1) Hyponatremia Assessment: improving (2) COPD (chronic obstructive pulmonary disease) (3) HTN (hypertension) (4) Seizure disorder Assessment Hx Cardiac Problems: Yes Hx Hypertension: Yes Hx COPD: Yes Hx Gastrointestinal Problems: Yes Hx Neurological Problems: Yes Hx Cerebrovascular Accident: Yes Hx Dementia: Yes Hx Seizures: Yes - epilepsy Hx Tremors: Yes Hx Vertigo: Yes Hx Dizziness: Yes Hx Syncope: Yes Hx Headaches: Yes - occasional Hx Weakness: Yes Hx Fatigue: Yes Assessment/Plan Hyponatremia etiology ? Plan Plan: monitor Uric acid check Serum Os check Urine Os check Carol 3% Saline and Lasix PO fluid restriction López monitor serum Na Subjective ROS Limited/Unobtainable: No Constitutional: Reports: other - more responsive Objective Objective Last 24 Hour Vital Signs Date Time Temp Pulse Resp B/P (MAP) Pulse Ox O2 Delivery O2 Flow Rate FiO2 03/13/18 14:37 66 131/58 03/13/18 12:00 96.4 60 20 128/48 (74) 98 96.4 03/13/18 11:36 60 03/13/18 09:20 96.0 60 22 106/59 (75) 94 96.0 03/13/18 08:44 60 03/13/18 08:32 Venturi Mask 8.0 03/13/18 08:15 Venturi Mask 8.0 40 03/13/18 08:14 96 Venturi Mask 8.0 40 03/13/18 08:13 60 22 Venturi Mask 8.0 40 03/13/18 06:05 88 124/76 03/13/18 04:00 61 03/13/18 04:00 97.4 61 20 108/51 (70) 98 97.4 03/13/18 00:00 93 03/13/18 00:00 97.4 95 16 124/63 (83) 98 97.4 03/12/18 23:02 90 140/60 03/12/18 20:00 97.6 94 16 140/60 (86) 98 97.6 03/12/18 20:00 Venturi Mask 6.0 03/12/18 20:00 95 Intake and Output 03/12/18 03/13/18 19:00 07:00 Intake Total 300 ml 345 ml Output Total 1350 ml 500 ml Balance -1050 ml -155 ml IV Total 300 ml 345 ml Output Urine Total 1350 ml 500 ml # Bowel Movements 1 1 Laboratory Tests 03/13/18 06:04: White Blood Count 9.3, Red Blood Count 4.57, Hemoglobin 13.2, Hematocrit 40.5, Mean Corpuscular Volume 89, Mean Corpuscular Hemoglobin 29.0, Mean Corpuscular Hemoglobin Concent 32.7, Red Cell Distribution Width 14.2, Platelet Count 156, Mean Platelet Volume 7.2, Neutrophils (%) (Auto) , Lymphocytes (%) (Auto) , Monocytes (%) (Auto) , Eosinophils (%) (Auto) , Basophils (%) (Auto) , Differential Total Cells Counted 100, Neutrophils % (Manual) 88H, Lymphocytes % (Manual) 5L, Monocytes % (Manual) 6, Eosinophils % (Manual) 1, Basophils % ( Manual) 0, Band Neutrophils 0, Platelet Estimate Adequate, Platelet Morphology Normal, Red Blood Cell Morphology Normal, Sodium Level 135#L, Potassium Level 3.8, Chloride Level 96L, Carbon Dioxide Level 33H, Anion Gap 6, Blood Urea Nitrogen 6L, Creatinine 0.5L, Estimat Glomerular Filtration Rate , Glucose Level 121H, Uric Acid 4.5, Calcium Level 8.6, Phosphorus Level 4.3, Magnesium Level 1.7L, Total Bilirubin 0.5, Aspartate Amino Transf (AST/SGOT) 8L, Alanine Aminotransferase (ALT/SGPT) 10L, Alkaline Phosphatase 60, Pro-B-Type Natriuretic Peptide 2039H, Total Protein 6.6, Albumin 3.0L, Globulin 3.6, Albumin/Globulin Ratio 0.8L Height (Feet): 5 Height (Inches): 3.00 Weight (Pounds): 189 General Appearance: no apparent distress Cardiovascular: normal rate Respiratory/Chest: decreased breath sounds Abdomen: soft Danilo Huber MD Mar 13, 2018 16:25
--- NOTE | 2018-03-13 18:47 | Internal Med Progress Note ---
Subjective Date of Service: Mar 13, 2018 Physician Name DuttaJuan Attending Physician Yonathan Mendoza MD Current Medications Medications (Trade) Dose Ordered Sig/Ibrahima Route PRN Reason Start Time Stop Time Status Last Admin Dose Admin Acetaminophen (Tylenol) 650 mg Q4H PRN ORAL fever 03/12/18 15:28 04/09/18 15:27 Albuterol/ Ipratropium (Albuterol/ Ipratropium) 3 ml Q4HRT PRN HHN Shortness of Breath 03/12/18 19:00 03/16/18 23:29 Apixaban (Eliquis) 5 mg BID ORAL 03/12/18 18:00 04/10/18 08:59 03/13/18 17:21 Atorvastatin Calcium (Lipitor) 10 mg BEDTIME ORAL 03/12/18 21:00 04/10/18 20:59 03/12/18 20:39 Dextrose (Dextrose 50%) 25 ml Q30M PRN IV Hypoglycemia 03/12/18 15:45 04/11/18 15:31 Dextrose (Dextrose 50%) 50 ml Q30M PRN IV hypoglycemia 03/12/18 15:45 04/11/18 15:44 Diltiazem HCl (Cardizem) 90 mg Q8HR ORAL 03/12/18 22:00 04/10/18 00:00 03/13/18 14:37 Furosemide (Lasix) 10 mg EVERY 6 HOURS IV 03/12/18 18:00 04/10/18 17:59 03/13/18 17:20 Hydralazine HCl (Apresoline) 25 mg Q4H PRN ORAL bp over 160 syst 03/12/18 15:30 04/11/18 15:29 Iopamidol (Isovue-370 150ml) 150 ml NOW PRN INJ Radiology Procedure 03/13/18 05:00 03/14/18 05:00 Lansoprazole (Prevacid) 30 mg Q12HR ORAL 03/12/18 21:00 04/10/18 21:44 03/13/18 08:19 Lorazepam (Ativan 2mg/ml 1ml) 1 mg Q4H PRN IV For Anxiety 03/12/18 16:00 03/18/18 11:59 Mirtazapine (Remeron) 15 mg BEDTIME ORAL 03/12/18 21:00 04/09/18 21:59 03/12/18 20:39 Morphine Sulfate (Morphine Sulfate) 1 mg Q4H PRN IVP For Pain 03/12/18 15:30 03/17/18 15:29 Ondansetron HCl (Zofran) 4 mg Q6H PRN IVP Nausea & Vomiting 03/12/18 15:30 04/09/18 15:29 Polyethylene Glycol (Miralax) 17 gm HSPRN PRN ORAL Constipation 03/12/18 15:30 04/09/18 15:29 Risperidone (RisperDAL) 2 mg BEDTIME ORAL 03/12/18 21:00 04/10/18 20:59 03/12/18 20:39 Zolpidem Tartrate (Ambien) 5 mg HSPRN PRN ORAL Insomnia 03/12/18 21:15 03/17/18 21:14 Allergies: Coded Allergies: PIPERACILLIN (Unverified Allergy, Unknown, 03/10/18) TAZOBACTAM (Unverified Allergy, Unknown, 03/10/18) ROS Limited/Unobtainable: Yes Subjective 77 YO F admitted with generalized weakness. Now hyponatremia. Cover for Int Med-Dr Mendoza. CHRISTOPHER Objective Last Vital Signs Date Time Temp Pulse Resp B/P (MAP) Pulse Ox O2 Delivery O2 Flow Rate FiO2 03/13/18 16:00 97.3 64 18 135/55 (81) 96 97.3 03/13/18 08:32 Venturi Mask 8.0 03/13/18 08:15 40 Laboratory Tests Test 03/13/18 06:04 White Blood Count 9.3 K/UL (4.8-10.8) Red Blood Count 4.57 M/UL (4.20-5.40) Hemoglobin 13.2 G/DL (12.0-16.0) Hematocrit 40.5 % (37.0-47.0) Mean Corpuscular Volume 89 FL (80-99) Mean Corpuscular Hemoglobin 29.0 PG (27.0-31.0) Mean Corpuscular Hemoglobin Concent 32.7 G/DL (32.0-36.0) Red Cell Distribution Width 14.2 % (11.6-14.8) Platelet Count 156 K/UL (150-450) Mean Platelet Volume 7.2 FL (6.5-10.1) Neutrophils (%) (Auto) % (45.0-75.0) Lymphocytes (%) (Auto) % (20.0-45.0) Monocytes (%) (Auto) % (1.0-10.0) Eosinophils (%) (Auto) % (0.0-3.0) Basophils (%) (Auto) % (0.0-2.0) Differential Total Cells Counted 100 Neutrophils % (Manual) 88 % (45-75) H Lymphocytes % (Manual) 5 % (20-45) L Monocytes % (Manual) 6 % (1-10) Eosinophils % (Manual) 1 % (0-3) Basophils % (Manual) 0 % (0-2) Band Neutrophils 0 % (0-8) Platelet Estimate Adequate Platelet Morphology Normal Red Blood Cell Morphology Normal Sodium Level 135 MMOL/L (136-145) #L Potassium Level 3.8 MMOL/L (3.5-5.1) Chloride Level 96 MMOL/L (98-107) L Carbon Dioxide Level 33 MMOL/L (21-32) H Anion Gap 6 mmol/L (5-15) Blood Urea Nitrogen 6 mg/dL (7-18) L Creatinine 0.5 MG/DL (0.55-1.30) L Estimat Glomerular Filtration Rate mL/min (>60) Glucose Level 121 MG/DL (74-106) H Uric Acid 4.5 MG/DL (2.6-7.2) Calcium Level 8.6 MG/DL (8.5-10.1) Phosphorus Level 4.3 MG/DL (2.5-4.9) Magnesium Level 1.7 MG/DL (1.8-2.4) L Total Bilirubin 0.5 MG/DL (0.2-1.0) Aspartate Amino Transf (AST/SGOT) 8 U/L (15-37) L Alanine Aminotransferase (ALT/SGPT) 10 U/L (12-78) L Alkaline Phosphatase 60 U/L (46-116) Pro-B-Type Natriuretic Peptide 2039 pg/mL (0-125) H Total Protein 6.6 G/DL (6.4-8.2) Albumin 3.0 G/DL (3.4-5.0) L Globulin 3.6 g/dL Albumin/Globulin Ratio 0.8 (1.0-2.7) L Intake and Output 03/12/18 03/13/18 19:00 07:00 Intake Total 300 ml 345 ml Output Total 1350 ml 500 ml Balance -1050 ml -155 ml IV Total 300 ml 345 ml Output Urine Total 1350 ml 500 ml # Bowel Movements 1 1 Objective PHYSICAL EXAMINATION: GENERAL: The patient is a well-developed, well-nourished white female, in no apparent distress. HEENT: Eyes, pupils equal and responsive to light and accommodation. Extraocular movements are intact. NECK: Supple without lymphadenopathy. CHEST: Lungs are clear to auscultation bilaterally without wheezes or rales. CARDIOVASCULAR: Regular rate. S1, S2 are normal without murmurs, rubs, or gallops. ABDOMEN: Soft, nontender, and nondistended. Positive bowel sounds. No evidence of hepatosplenomegaly. Currently, no rebound or guarding noted. EXTREMITIES: Negative for clubbing, cyanosis, or edema. RECTAL: Refused. GENITAL: Refused. NEUROLOGIC: Cranial nerves II through XII are grossly intact without focal deficits. Assessment/Plan Problem List: (1) Generalized weakness (2) Deep vein thrombosis (DVT) of left lower extremity Assessment & Plan: Continue eliquis (3) Encephalopathy (4) Major depression (5) Hyponatremia Assessment & Plan: Workup in progress. See nephrology note. (6) Seizure disorder (7) COPD (chronic obstructive pulmonary disease) (8) HTN (hypertension) Assessment & Plan: Continue cardizem and hydralazine (9) Atrial flutter Assessment & Plan: See cardiology note. Status: not improved Juan Dutta MD Mar 13, 2018 18:47
[2018-03-13 20:00] VITALS: BP 136/62
[2018-03-13] MEDS: Zolpidem 5mg tab ORAL PRN (22:22)
[2018-03-14] VITALS: BP 116/49
[2018-03-14 04:00] VITALS: BP 122/53
--- NOTE | 2018-03-14 05:05 | Pulmonology Progress Note ---
Assessment/Plan Problems: (1) Encephalopathy acute (2) Hyponatremia (3) Seizure disorder (4) HTN (hypertension) (5) Anemia, chronic disease (6) Major depression Assessment/Plan more alert today Na better heart rate controlled on lasix IV, 10 mg q 6 yours, fluid balance is - 955 since admission respiratory treatment Neuro evaluation titrate cardiac meds swallow study aspiration precaution. CT chest reviewed, thickened esophagus Subjective ROS Limited/Unobtainable: No Constitutional: Reports: no symptoms HEENT: Repors: no symptoms Respiratory: Reports: no symptoms Allergies: Coded Allergies: PIPERACILLIN (Unverified Allergy, Unknown, 03/10/18) TAZOBACTAM (Unverified Allergy, Unknown, 03/10/18) Objective Last 24 Hour Vital Signs Date Time Temp Pulse Resp B/P (MAP) Pulse Ox O2 Delivery O2 Flow Rate FiO2 03/14/18 04:00 Venturi Mask 8.0 03/14/18 04:00 96.3 67 20 122/53 (76) 95 96.3 03/14/18 04:00 60 03/14/18 00:00 96.3 60 21 116/49 (71) 91 96.3 03/14/18 00:00 61 03/14/18 00:00 Venturi Mask 8.0 03/13/18 21:15 91 136/62 03/13/18 21:00 Venturi Mask 8.0 03/13/18 20:00 98.1 91 19 136/62 (86) 94 98.1 03/13/18 20:00 68 03/13/18 19:50 Venturi Mask 8.0 40 03/13/18 19:50 96 Venturi Mask 8.0 40 03/13/18 19:50 70 18 Venturi Mask 8.0 40 03/13/18 16:00 97.3 64 18 135/55 (81) 96 97.3 03/13/18 16:00 60 03/13/18 14:37 66 131/58 03/13/18 12:00 96.4 60 20 128/48 (74) 98 96.4 03/13/18 11:36 60 03/13/18 09:20 96.0 60 22 106/59 (75) 94 96.0 03/13/18 08:44 60 03/13/18 08:32 Venturi Mask 8.0 03/13/18 08:15 Venturi Mask 8.0 40 03/13/18 08:14 96 Venturi Mask 8.0 40 03/13/18 08:13 60 22 Venturi Mask 8.0 40 03/13/18 06:05 88 124/76 Intake and Output 03/13/18 03/14/18 19:00 07:00 Intake Total 920 ml Output Total 475 ml Balance 445 ml Intake Oral 390 ml IV Total 530 ml Output Urine Total 475 ml General Appearance: WD/WN HEENT: normocephalic, atraumatic Respiratory/Chest: chest wall non-tender, lungs clear Cardiovascular: regular rhythm Abdomen: normal bowel sounds, no organomegaly Extremities: no cyanosis Skin: no rash Laboratory Tests 03/13/18 06:04: White Blood Count 9.3, Red Blood Count 4.57, Hemoglobin 13.2, Hematocrit 40.5, Mean Corpuscular Volume 89, Mean Corpuscular Hemoglobin 29.0, Mean Corpuscular Hemoglobin Concent 32.7, Red Cell Distribution Width 14.2, Platelet Count 156, Mean Platelet Volume 7.2, Neutrophils (%) (Auto) , Lymphocytes (%) (Auto) , Monocytes (%) (Auto) , Eosinophils (%) (Auto) , Basophils (%) (Auto) , Differential Total Cells Counted 100, Neutrophils % (Manual) 88H, Lymphocytes % (Manual) 5L, Monocytes % (Manual) 6, Eosinophils % (Manual) 1, Basophils % ( Manual) 0, Band Neutrophils 0, Platelet Estimate Adequate, Platelet Morphology Normal, Red Blood Cell Morphology Normal, Sodium Level 135#L, Potassium Level 3.8, Chloride Level 96L, Carbon Dioxide Level 33H, Anion Gap 6, Blood Urea Nitrogen 6L, Creatinine 0.5L, Estimat Glomerular Filtration Rate , Glucose Level 121H, Uric Acid 4.5, Calcium Level 8.6, Phosphorus Level 4.3, Magnesium Level 1.7L, Total Bilirubin 0.5, Aspartate Amino Transf (AST/SGOT) 8L, Alanine Aminotransferase (ALT/SGPT) 10L, Alkaline Phosphatase 60, Pro-B-Type Natriuretic Peptide 2039H, Total Protein 6.6, Albumin 3.0L, Globulin 3.6, Albumin/Globulin Ratio 0.8L Current Medications Medications (Trade) Dose Ordered Sig/Ibrahima Route PRN Reason Start Time Stop Time Status Last Admin Dose Admin Acetaminophen (Tylenol) 650 mg Q4H PRN ORAL fever 03/12/18 15:28 04/09/18 15:27 Albuterol/ Ipratropium (Albuterol/ Ipratropium) 3 ml Q4HRT PRN HHN Shortness of Breath 03/12/18 19:00 03/16/18 23:29 Apixaban (Eliquis) 5 mg BID ORAL 03/12/18 18:00 04/10/18 08:59 03/13/18 17:21 Atorvastatin Calcium (Lipitor) 10 mg BEDTIME ORAL 03/12/18 21:00 04/10/18 20:59 03/13/18 21:15 Dextrose (Dextrose 50%) 25 ml Q30M PRN IV Hypoglycemia 03/12/18 15:45 04/11/18 15:31 Dextrose (Dextrose 50%) 50 ml Q30M PRN IV hypoglycemia 03/12/18 15:45 04/11/18 15:44 Diltiazem HCl (Cardizem) 90 mg Q8HR ORAL 03/12/18 22:00 04/10/18 00:00 03/13/18 21:15 Furosemide (Lasix) 10 mg EVERY 6 HOURS IV 03/12/18 18:00 04/10/18 17:59 03/13/18 23:25 Hydralazine HCl (Apresoline) 25 mg Q4H PRN ORAL bp over 160 syst 03/12/18 15:30 04/11/18 15:29 Lansoprazole (Prevacid) 30 mg Q12HR ORAL 03/12/18 21:00 04/10/18 21:44 03/13/18 21:16 Lorazepam (Ativan 2mg/ml 1ml) 1 mg Q4H PRN IV For Anxiety 03/12/18 16:00 03/18/18 11:59 Mirtazapine (Remeron) 15 mg BEDTIME ORAL 03/12/18 21:00 04/09/18 21:59 03/13/18 21:15 Morphine Sulfate (Morphine Sulfate) 1 mg Q4H PRN IVP For Pain 03/12/18 15:30 03/17/18 15:29 Ondansetron HCl (Zofran) 4 mg Q6H PRN IVP Nausea & Vomiting 03/12/18 15:30 04/09/18 15:29 Polyethylene Glycol (Miralax) 17 gm HSPRN PRN ORAL Constipation 03/12/18 15:30 04/09/18 15:29 Risperidone (RisperDAL) 2 mg BEDTIME ORAL 03/12/18 21:00 04/10/18 20:59 03/13/18 21:16 Zolpidem Tartrate (Ambien) 5 mg HSPRN PRN ORAL Insomnia 03/12/18 21:15 03/17/18 21:14 03/13/18 22:22 Mendel Sierra MD Mar 14, 2018 05:04
[2018-03-14] MEDS: dilTIAZem HCl 90mg tab ORAL SCH ×3 (05:43→21:03)
[2018-03-14 06:15] LABS: BASOPHILS % (AUTO) 0.7 % (0.0-2.0); EOSINOPHILS % (AUTO) 0.8 % (0.0-3.0); HEMATOCRIT 38.9 % (37.0-47.0); HEMOGLOBIN 12.6 G/DL (12.0-16.0); LYMPHOCYTES % (AUTO) 6.8 % (20.0-45.0); MEAN CORPUSCULAR VOLUME 90 FL (80-99); MONOCYTES % (AUTO) 7.1 % (1.0-10.0); NEUTROPHILS % (AUTO) 84.7 % (45.0-75.0); PLATELET COUNT 142 K/UL (150-450); RED BLOOD COUNT 4.34 M/UL (4.20-5.40); RED CELL DISTRIBUTION WIDTH 14.2 % (11.6-14.8); WHITE BLOOD COUNT 7.7 K/UL (4.8-10.8)
[2018-03-14 06:21] LABS: ANION GAP 6 mmol/L (5-15); BLOOD UREA NITROGEN 10 mg/dL (7-18); CALCIUM 8.8 MG/DL (8.5-10.1); CARBON DIOXIDE 33 MMOL/L (21-32); CHLORIDE 100 MMOL/L (98-107); CREATININE 0.7 MG/DL (0.55-1.30); POTASSIUM 4.3 MMOL/L (3.5-5.1); SODIUM 139 MMOL/L (136-145)
--- NOTE | 2018-03-14 07:50 | Infectious Diseases Prog Note ---
Assessment/Plan Assessment/Plan Afebrile No leukocytosis -u/a neg -Bcx NTD Acute respiratory distress- now on VM 2ry to vol overload- no evidence of PNA -CXR: Slightly worsening pulmonary vascular congestion. Correlate clinically Hyponatremia Generalized weakness- no evidence of infectious process Itchy Rash- presumed scabies Hx of UTI and bronchitis 09/2017, s/p Rx -100K P.mirabilis (S Ceftriaxone) History of coag-negative Staph bacteremia (in July,), s/p Rx 2 weeks -JIMY tickened MV, no vegetations Hypertension. COPD. History of atrial flutter. CAD status post stent. History of alcohol abuse. History of bilateral hip replacement. Seizure disorder. hx L DVT MRSA and VRE colonized Plan: -Continue to monitor off abx -Empiric treatment for scabies with Permethrin cream and ivermectin x1 -03/10 SP IV Vanco and Cefepime x1 -10/24 SP Cefdnir #5 -10/19/17 SP Levaquin #3 -Monitor CBC/CMP, temperatures -aspiration precautions -Renal and cards f/u -Contact isolation Will continue to follow along with you. Subjective Allergies: Coded Allergies: PIPERACILLIN (Unverified Allergy, Unknown, 03/10/18) TAZOBACTAM (Unverified Allergy, Unknown, 03/10/18) Subjective Poorly responsive this am with O2 Sats in the low 90s Afebrile WBCs normal Objective Vital Signs Last 24 Hour Vital Signs Date Time Temp Pulse Resp B/P (MAP) Pulse Ox O2 Delivery O2 Flow Rate FiO2 03/14/18 05:43 60 122/53 03/14/18 04:00 Venturi Mask 8.0 03/14/18 04:00 96.3 67 20 122/53 (76) 95 96.3 03/14/18 04:00 60 03/14/18 00:00 96.3 60 21 116/49 (71) 91 96.3 03/14/18 00:00 61 03/14/18 00:00 Venturi Mask 8.0 03/13/18 21:15 91 136/62 03/13/18 21:00 Venturi Mask 8.0 03/13/18 20:00 98.1 91 19 136/62 (86) 94 98.1 03/13/18 20:00 68 03/13/18 19:50 Venturi Mask 8.0 40 03/13/18 19:50 96 Venturi Mask 8.0 40 03/13/18 19:50 70 18 Venturi Mask 8.0 40 03/13/18 16:00 97.3 64 18 135/55 (81) 96 97.3 03/13/18 16:00 60 03/13/18 14:37 66 131/58 03/13/18 12:00 96.4 60 20 128/48 (74) 98 96.4 03/13/18 11:36 60 03/13/18 09:20 96.0 60 22 106/59 (75) 94 96.0 03/13/18 08:44 60 03/13/18 08:32 Venturi Mask 8.0 03/13/18 08:15 Venturi Mask 8.0 40 03/13/18 08:14 96 Venturi Mask 8.0 40 03/13/18 08:13 60 22 Venturi Mask 8.0 40 Height (Feet): 5 Height (Inches): 3.00 Weight (Pounds): 189 Objective GENERAL: NAD HEENT: NCAT, MMM, EOMI CHEST: Lungs are clear to auscultation bilaterally without wheezes or rales. CARDIOVASCULAR: Regular rate. S1, S2 are normal without murmurs, rubs, or gallops. ABDOMEN: Soft, nontender, and nondistended. Positive bowel sounds. EXTREMITIES: Negative for clubbing, cyanosis, or edema. Laboratory Tests Test 03/14/18 04:00 White Blood Count 7.7 K/UL (4.8-10.8) Red Blood Count 4.34 M/UL (4.20-5.40) Hemoglobin 12.6 G/DL (12.0-16.0) Hematocrit 38.9 % (37.0-47.0) Mean Corpuscular Volume 90 FL (80-99) Mean Corpuscular Hemoglobin 29.0 PG (27.0-31.0) Mean Corpuscular Hemoglobin Concent 32.4 G/DL (32.0-36.0) Red Cell Distribution Width 14.2 % (11.6-14.8) Platelet Count 142 K/UL (150-450) L Mean Platelet Volume 6.7 FL (6.5-10.1) Neutrophils (%) (Auto) 84.7 % (45.0-75.0) H Lymphocytes (%) (Auto) 6.8 % (20.0-45.0) L Monocytes (%) (Auto) 7.1 % (1.0-10.0) Eosinophils (%) (Auto) 0.8 % (0.0-3.0) Basophils (%) (Auto) 0.7 % (0.0-2.0) Sodium Level 139 MMOL/L (136-145) Potassium Level 4.3 MMOL/L (3.5-5.1) Chloride Level 100 MMOL/L (98-107) Carbon Dioxide Level 33 MMOL/L (21-32) H Anion Gap 6 mmol/L (5-15) Blood Urea Nitrogen 10 mg/dL (7-18) Creatinine 0.7 MG/DL (0.55-1.30) Estimat Glomerular Filtration Rate mL/min (>60) Glucose Level 127 MG/DL (74-106) H Calcium Level 8.8 MG/DL (8.5-10.1) Carcinoembryonic Antigen Pending Current Medications Medications (Trade) Dose Ordered Sig/Ibrahima Route PRN Reason Start Time Stop Time Status Last Admin Dose Admin Acetaminophen (Tylenol) 650 mg Q4H PRN ORAL fever 03/12/18 15:28 04/09/18 15:27 Albuterol/ Ipratropium (Albuterol/ Ipratropium) 3 ml Q4HRT PRN HHN Shortness of Breath 03/12/18 19:00 03/16/18 23:29 Apixaban (Eliquis) 5 mg BID ORAL 03/12/18 18:00 04/10/18 08:59 03/13/18 17:21 Atorvastatin Calcium (Lipitor) 10 mg BEDTIME ORAL 03/12/18 21:00 04/10/18 20:59 03/13/18 21:15 Dextrose (Dextrose 50%) 25 ml Q30M PRN IV Hypoglycemia 03/12/18 15:45 04/11/18 15:31 Dextrose (Dextrose 50%) 50 ml Q30M PRN IV hypoglycemia 03/12/18 15:45 04/11/18 15:44 Diltiazem HCl (Cardizem) 90 mg Q8HR ORAL 03/12/18 22:00 04/10/18 00:00 03/13/18 21:15 Furosemide (Lasix) 10 mg EVERY 6 HOURS IV 03/12/18 18:00 04/10/18 17:59 03/14/18 05:44 Hydralazine HCl (Apresoline) 25 mg Q4H PRN ORAL bp over 160 syst 03/12/18 15:30 04/11/18 15:29 Lansoprazole (Prevacid) 30 mg Q12HR ORAL 03/12/18 21:00 04/10/18 21:44 03/13/18 21:16 Lorazepam (Ativan 2mg/ml 1ml) 1 mg Q4H PRN IV For Anxiety 03/12/18 16:00 03/18/18 11:59 Mirtazapine (Remeron) 15 mg BEDTIME ORAL 03/12/18 21:00 04/09/18 21:59 03/13/18 21:15 Morphine Sulfate (Morphine Sulfate) 1 mg Q4H PRN IVP For Pain 03/12/18 15:30 03/17/18 15:29 Ondansetron HCl (Zofran) 4 mg Q6H PRN IVP Nausea & Vomiting 03/12/18 15:30 04/09/18 15:29 Polyethylene Glycol (Miralax) 17 gm HSPRN PRN ORAL Constipation 03/12/18 15:30 04/09/18 15:29 Risperidone (RisperDAL) 2 mg BEDTIME ORAL 03/12/18 21:00 04/10/18 20:59 03/13/18 21:16 Zolpidem Tartrate (Ambien) 5 mg HSPRN PRN ORAL Insomnia 03/12/18 21:15 03/17/18 21:14 03/13/18 22:22 Josue Bain MD Mar 14, 2018 07:50
[2018-03-14 08:00] VITALS: BP 147/89
[2018-03-14] MEDS: Eliquis 2.5mg tablet ORAL SCH ×2 (08:28→17:20)
--- NOTE | 2018-03-14 09:35 | Nephrology Progress Note ---
Assessment/Plan Problem List: (1) Hyponatremia Assessment: improving (2) COPD (chronic obstructive pulmonary disease) (3) HTN (hypertension) (4) Seizure disorder (5) Respiratory failure Assessment: retaining CO2 Assessment Retaining CO2 Hyponatremia etiology ? Plan Plan: steroid trial monitor Uric acid 3% Saline and Lasix as needed PO fluid restriction López monitor serum Na Subjective ROS Limited/Unobtainable: No Constitutional: Reports: malaise Objective Objective Last 24 Hour Vital Signs Date Time Temp Pulse Resp B/P (MAP) Pulse Ox O2 Delivery O2 Flow Rate FiO2 03/14/18 09:15 91 Venturi Mask 14.0 55 03/14/18 09:15 Venturi Mask 8.0 40 03/14/18 09:14 72 20 Venturi Mask 14.0 55 03/14/18 08:00 97.0 74 20 147/89 (108) 90 97.0 03/14/18 05:43 60 122/53 03/14/18 04:00 Venturi Mask 8.0 03/14/18 04:00 96.3 67 20 122/53 (76) 95 96.3 03/14/18 04:00 60 03/14/18 00:00 96.3 60 21 116/49 (71) 91 96.3 03/14/18 00:00 61 03/14/18 00:00 Venturi Mask 8.0 03/13/18 21:15 91 136/62 03/13/18 21:00 Venturi Mask 8.0 03/13/18 20:00 98.1 91 19 136/62 (86) 94 98.1 03/13/18 20:00 68 03/13/18 19:50 Venturi Mask 8.0 40 03/13/18 19:50 96 Venturi Mask 8.0 40 03/13/18 19:50 70 18 Venturi Mask 8.0 40 03/13/18 16:00 97.3 64 18 135/55 (81) 96 97.3 03/13/18 16:00 60 03/13/18 14:37 66 131/58 03/13/18 12:00 96.4 60 20 128/48 (74) 98 96.4 03/13/18 11:36 60 Intake and Output 03/13/18 03/14/18 19:00 07:00 Intake Total 920 ml 200 ml Output Total 475 ml 350 ml Balance 445 ml -150 ml Intake Oral 390 ml 200 ml IV Total 530 ml Output Urine Total 475 ml 350 ml Laboratory Tests 03/14/18 04:00: White Blood Count 7.7, Red Blood Count 4.34, Hemoglobin 12.6, Hematocrit 38.9, Mean Corpuscular Volume 90, Mean Corpuscular Hemoglobin 29.0, Mean Corpuscular Hemoglobin Concent 32.4, Red Cell Distribution Width 14.2, Platelet Count 142L, Mean Platelet Volume 6.7, Neutrophils (%) (Auto) 84.7H, Lymphocytes (%) (Auto) 6.8L, Monocytes (%) (Auto) 7.1, Eosinophils (%) (Auto) 0.8, Basophils (%) (Auto ) 0.7, Sodium Level 139, Potassium Level 4.3, Chloride Level 100, Carbon Dioxide Level 33H, Anion Gap 6, Blood Urea Nitrogen 10, Creatinine 0.7, Estimat Glomerular Filtration Rate , Glucose Level 127H, Calcium Level 8.8, Carcinoembryonic Antigen [Pending] 03/14/18 08:45: Arterial Blood pH 7.325L, Arterial Blood Partial Pressure CO2 71.6*H, Arterial Blood Partial Pressure O2 57.5L, Arterial Blood HCO3 36.5H, Arterial Blood Oxygen Saturation 88.2*L, Arterial Blood Base Excess 8.0H, Ian Test Positive Height (Feet): 5 Height (Inches): 3.00 Weight (Pounds): 189 General Appearance: no apparent distress Cardiovascular: normal rate Respiratory/Chest: decreased breath sounds Abdomen: soft Objective no change Danilo Huber MD Mar 14, 2018 09:35
[2018-03-14] MEDS ORDERED: Solu-MEDROL 125mg Inj IVP SCH (10:00)
[2018-03-14 11:35] VITALS: BP 146/69
[2018-03-14] MEDS: Solu-MEDROL 40mg Inj IVP SCH ×2 (13:58→21:03)
[2018-03-14 15:39] VITALS: BP 126/62
--- NOTE | 2018-03-14 15:40 | Internal Med Progress Note ---
Subjective Date of Service: Mar 14, 2018 Physician Name Dutta,Juan Attending Physician Yonathan Mendoza MD Current Medications Medications (Trade) Dose Ordered Sig/Ibrahima Route PRN Reason Start Time Stop Time Status Last Admin Dose Admin Acetaminophen (Tylenol) 650 mg Q4H PRN ORAL fever 03/12/18 15:28 04/09/18 15:27 Albuterol/ Ipratropium (Albuterol/ Ipratropium) 3 ml Q4HRT PRN HHN Shortness of Breath 03/12/18 19:00 03/16/18 23:29 Apixaban (Eliquis) 5 mg BID ORAL 03/12/18 18:00 04/10/18 08:59 03/14/18 08:28 Atorvastatin Calcium (Lipitor) 10 mg BEDTIME ORAL 03/12/18 21:00 04/10/18 20:59 03/13/18 21:15 Dextrose (Dextrose 50%) 25 ml Q30M PRN IV Hypoglycemia 03/12/18 15:45 04/11/18 15:31 Dextrose (Dextrose 50%) 50 ml Q30M PRN IV hypoglycemia 03/12/18 15:45 04/11/18 15:44 Diltiazem HCl (Cardizem) 90 mg Q8HR ORAL 03/12/18 22:00 04/10/18 00:00 03/14/18 13:59 Hydralazine HCl (Apresoline) 25 mg Q4H PRN ORAL bp over 160 syst 03/12/18 15:30 04/11/18 15:29 Lansoprazole (Prevacid) 30 mg Q12HR ORAL 03/12/18 21:00 04/10/18 21:44 03/14/18 08:28 Lorazepam (Ativan 2mg/ml 1ml) 1 mg Q4H PRN IV For Anxiety 03/12/18 16:00 03/18/18 11:59 Methylprednisolone Sodium Succinate (Solu-MEDROL) 40 mg EVERY 8 HOURS IVP 03/14/18 14:00 04/13/18 13:59 03/14/18 13:58 Mirtazapine (Remeron) 15 mg BEDTIME ORAL 03/12/18 21:00 04/09/18 21:59 03/13/18 21:15 Morphine Sulfate (Morphine Sulfate) 1 mg Q4H PRN IVP For Pain 03/12/18 15:30 03/17/18 15:29 Ondansetron HCl (Zofran) 4 mg Q6H PRN IVP Nausea & Vomiting 03/12/18 15:30 04/09/18 15:29 Polyethylene Glycol (Miralax) 17 gm HSPRN PRN ORAL Constipation 03/12/18 15:30 04/09/18 15:29 Risperidone (RisperDAL) 2 mg BEDTIME ORAL 03/12/18 21:00 04/10/18 20:59 03/13/18 21:16 Zolpidem Tartrate (Ambien) 5 mg HSPRN PRN ORAL Insomnia 03/12/18 21:15 03/17/18 21:14 03/13/18 22:22 Allergies: Coded Allergies: PIPERACILLIN (Unverified Allergy, Unknown, 03/10/18) TAZOBACTAM (Unverified Allergy, Unknown, 03/10/18) ROS Limited/Unobtainable: Yes Subjective 77 YO F admitted with generalized weakness. Now hyponatremia. Cover for Int Med-Dr Mendoza. CHRISTOPHER Objective Last Vital Signs Date Time Temp Pulse Resp B/P (MAP) Pulse Ox O2 Delivery O2 Flow Rate FiO2 03/14/18 13:59 73 146/69 03/14/18 12:53 16 97 Facial 35 03/14/18 12:00 8.0 03/14/18 11:35 97.3 97.3 Laboratory Tests Test 03/14/18 04:00 03/14/18 06:20 03/14/18 08:45 03/14/18 14:14 White Blood Count 7.7 K/UL (4.8-10.8) Red Blood Count 4.34 M/UL (4.20-5.40) Hemoglobin 12.6 G/DL (12.0-16.0) Hematocrit 38.9 % (37.0-47.0) Mean Corpuscular Volume 90 FL (80-99) Mean Corpuscular Hemoglobin 29.0 PG (27.0-31.0) Mean Corpuscular Hemoglobin Concent 32.4 G/DL (32.0-36.0) Red Cell Distribution Width 14.2 % (11.6-14.8) Platelet Count 142 K/UL (150-450) L Mean Platelet Volume 6.7 FL (6.5-10.1) Neutrophils (%) (Auto) 84.7 % (45.0-75.0) H Lymphocytes (%) (Auto) 6.8 % (20.0-45.0) L Monocytes (%) (Auto) 7.1 % (1.0-10.0) Eosinophils (%) (Auto) 0.8 % (0.0-3.0) Basophils (%) (Auto) 0.7 % (0.0-2.0) Sodium Level 139 MMOL/L (136-145) Potassium Level 4.3 MMOL/L (3.5-5.1) Chloride Level 100 MMOL/L (98-107) Carbon Dioxide Level 33 MMOL/L (21-32) H Anion Gap 6 mmol/L (5-15) Blood Urea Nitrogen 10 mg/dL (7-18) Creatinine 0.7 MG/DL (0.55-1.30) Estimat Glomerular Filtration Rate mL/min (>60) Glucose Level 127 MG/DL (74-106) H Calcium Level 8.8 MG/DL (8.5-10.1) Carcinoembryonic Antigen Pending C-Reactive Protein, Quantitative 5.1 mg/dL (0.00-0.90) H Arterial Blood pH 7.325 (7.350-7.450) 7.340 (7.350-7.450) Arterial Blood Partial Pressure CO2 71.6 mmHg (35.0-45.0) *H 60.9 mmHg (35.0-45.0) *H Arterial Blood Partial Pressure O2 57.5 mmHg (75.0-100.0) L 84.9 mmHg (75.0-100.0) Arterial Blood HCO3 36.5 mmol/L (22.0-26.0) H 32.1 mmol/L (22.0-26.0) H Arterial Blood Oxygen Saturation 88.2 % (95-100) *L 96.0 % (95-100) Arterial Blood Base Excess 8.0 (-2-2) H 4.7 (-2-2) H Ian Test Positive Positive Intake and Output 03/13/18 03/14/18 19:00 07:00 Intake Total 920 ml 200 ml Output Total 475 ml 350 ml Balance 445 ml -150 ml Intake Oral 390 ml 200 ml IV Total 530 ml Output Urine Total 475 ml 350 ml Objective PHYSICAL EXAMINATION: GENERAL: The patient is a well-developed, well-nourished white female, in no apparent distress. HEENT: Eyes, pupils equal and responsive to light and accommodation. Extraocular movements are intact. NECK: Supple without lymphadenopathy. CHEST: Lungs are clear to auscultation bilaterally without wheezes or rales. CARDIOVASCULAR: Regular rate. S1, S2 are normal without murmurs, rubs, or gallops. ABDOMEN: Soft, nontender, and nondistended. Positive bowel sounds. No evidence of hepatosplenomegaly. Currently, no rebound or guarding noted. EXTREMITIES: Negative for clubbing, cyanosis, or edema. RECTAL: Refused. GENITAL: Refused. NEUROLOGIC: Cranial nerves II through XII are grossly intact without focal deficits. Assessment/Plan Problem List: (1) Generalized weakness (2) Deep vein thrombosis (DVT) of left lower extremity Assessment & Plan: Continue eliquis (3) Encephalopathy (4) Major depression (5) Hyponatremia Assessment & Plan: Workup in progress. See nephrology note. (6) Seizure disorder (7) COPD (chronic obstructive pulmonary disease) (8) HTN (hypertension) Assessment & Plan: Continue cardizem and hydralazine (9) Atrial flutter Assessment & Plan: See cardiology note. Status: not improved Juan Dutta MD Mar 14, 2018 15:40
[2018-03-14 20:00] VITALS: BP 149/83
[2018-03-14] MEDS: Zolpidem 5mg tab ORAL PRN (21:03)
--- NOTE | 2018-03-14 23:59 | General Progress Note ---
Assessment/Plan Assessment/Plan schizoaffective d/o Agitation hx of alcohol abuse. increase Risperdal 2mg qhs cont Depakote increase Ativan provided st/ro Subjective Neurologic/Psychiatric: Reports: anxiety, depressed Allergies: Coded Allergies: PIPERACILLIN (Unverified Allergy, Unknown, 03/10/18) TAZOBACTAM (Unverified Allergy, Unknown, 03/10/18) Objective Last 24 Hour Vital Signs Date Time Temp Pulse Resp B/P (MAP) Pulse Ox O2 Delivery O2 Flow Rate FiO2 03/14/18 21:03 115 149/83 03/14/18 20:00 98.8 108 18 149/83 (105) 95 98.8 03/14/18 20:00 115 03/14/18 20:00 Venturi Mask 8.0 03/14/18 19:10 96 Nasal Cannula 3.0 32 03/14/18 19:10 Nasal Cannula 3.0 32 03/14/18 19:09 76 20 Nasal Cannula 3.0 32 03/14/18 16:00 100 03/14/18 16:00 Venturi Mask 8.0 03/14/18 15:39 97.7 99 18 126/62 (83) 90 97.7 03/14/18 15:28 110 28 95 Facial 35 03/14/18 13:59 73 146/69 03/14/18 12:53 73 16 97 Facial 35 03/14/18 12:19 82 15 97 Facial 35 03/14/18 12:00 Venturi Mask 8.0 03/14/18 12:00 80 03/14/18 11:35 97.3 76 20 146/69 (94) 90 97.3 03/14/18 09:34 63 03/14/18 09:15 91 Venturi Mask 14.0 55 03/14/18 09:15 Venturi Mask 8.0 40 03/14/18 09:14 72 20 Venturi Mask 14.0 55 03/14/18 08:00 Venturi Mask 8.0 03/14/18 08:00 97.0 74 20 147/89 (108) 90 97.0 03/14/18 05:43 60 122/53 03/14/18 04:00 Venturi Mask 8.0 03/14/18 04:00 96.3 67 20 122/53 (76) 95 96.3 03/14/18 04:00 60 03/14/18 00:00 96.3 60 21 116/49 (53) 91 96.3 03/14/18 00:00 61 03/14/18 00:00 Venturi Mask 8.0 Intake and Output 03/13/18 03/14/18 19:00 07:00 Intake Total 920 ml 200 ml Output Total 475 ml 350 ml Balance 445 ml -150 ml Intake Oral 390 ml 200 ml IV Total 530 ml Output Urine Total 475 ml 350 ml Laboratory Tests 03/14/18 04:00: White Blood Count 7.7, Red Blood Count 4.34, Hemoglobin 12.6, Hematocrit 38.9, Mean Corpuscular Volume 90, Mean Corpuscular Hemoglobin 29.0, Mean Corpuscular Hemoglobin Concent 32.4, Red Cell Distribution Width 14.2, Platelet Count 142L, Mean Platelet Volume 6.7, Neutrophils (%) (Auto) 84.7H, Lymphocytes (%) (Auto) 6.8L, Monocytes (%) (Auto) 7.1, Eosinophils (%) (Auto) 0.8, Basophils (%) (Auto ) 0.7, Sodium Level 139, Potassium Level 4.3, Chloride Level 100, Carbon Dioxide Level 33H, Anion Gap 6, Blood Urea Nitrogen 10, Creatinine 0.7, Estimat Glomerular Filtration Rate , Glucose Level 127H, Calcium Level 8.8, Carcinoembryonic Antigen [Pending] 03/14/18 06:20: C-Reactive Protein, Quantitative 5.1H 03/14/18 08:45: Arterial Blood pH 7.325L, Arterial Blood Partial Pressure CO2 71.6*H, Arterial Blood Partial Pressure O2 57.5L, Arterial Blood HCO3 36.5H, Arterial Blood Oxygen Saturation 88.2*L, Arterial Blood Base Excess 8.0H, Ian Test Positive 03/14/18 14:14: Arterial Blood pH 7.340L, Arterial Blood Partial Pressure CO2 60.9*H, Arterial Blood Partial Pressure O2 84.9, Arterial Blood HCO3 32.1H, Arterial Blood Oxygen Saturation 96.0, Arterial Blood Base Excess 4.7H, Ian Test Positive Height (Feet): 5 Height (Inches): 3.00 Weight (Pounds): 189 General Appearance: no apparent distress, alert, overweight Neurologic: depressed affect Luiz Morrison MD Mar 14, 2018 23:59
[2018-03-15] VITALS: BP 132/61
[2018-03-15 04:00] VITALS: BP 149/66
[2018-03-15 05:21] LABS: HEMATOCRIT 35.5 % (37.0-47.0); HEMOGLOBIN 11.6 G/DL (12.0-16.0); MEAN CORPUSCULAR VOLUME 89 FL (80-99); PLATELET COUNT 171 K/UL (150-450); RED BLOOD COUNT 3.98 M/UL (4.20-5.40); WHITE BLOOD COUNT 4.9 K/UL (4.8-10.8)
[2018-03-15 05:34] LABS: PHOSPHORUS 4.2 MG/DL (2.5-4.9)
[2018-03-15 05:39] LABS: ALANINE AMINOTRANSFERASE 15 U/L (12-78); ALBUMIN 2.8 G/DL (3.4-5.0); ALBUMIN/GLOBULIN RATIO 0.9 (1.0-2.7); ALKALINE PHOSPHATASE 52 U/L (46-116); ANION GAP 4 mmol/L (5-15); ASPARTATE AMINO TRANSFERASE 10 U/L (15-37); BILIRUBIN,TOTAL 0.5 MG/DL (0.2-1.0); BLOOD UREA NITROGEN 13 mg/dL (7-18); CALCIUM 8.7 MG/DL (8.5-10.1); CARBON DIOXIDE 35 MMOL/L (21-32); CHLORIDE 102 MMOL/L (98-107); CREATININE 0.5 MG/DL (0.55-1.30); POTASSIUM 4.4 MMOL/L (3.5-5.1); SODIUM 141 MMOL/L (136-145)
[2018-03-15] MEDS: Solu-MEDROL 40mg Inj IVP SCH ×2 (05:39→21:14)
[2018-03-15] MEDS: dilTIAZem HCl 90mg tab ORAL SCH ×3 (05:39→21:14)
[2018-03-15 08:00] VITALS: BP 136/55
[2018-03-15] MEDS: Eliquis 2.5mg tablet ORAL SCH ×2 (08:49→17:28)
--- NOTE | 2018-03-15 08:59 | Diagnostic Imaging Report ---
INDICATION: Dyspnea COMPARISON: Chest x-ray dated 03/13/18 FINDINGS: Single frontal view demonstrates enlarged heart size. Atherosclerotic vascular disease. Right lower lung zone opacity. No pleural effusions. The visualized osseous structures are within normal limits. IMPRESSION: Stable large heart size with increasing right lower lung zone opacity.
--- NOTE | 2018-03-15 10:31 | Cardiology Progress Note ---
Assessment/Plan Status: stable Assessment/Plan Assessment (1) Encephalopathy acute (2) Hyponatremia (3) Seizure disorder (4) HTN (hypertension) (5) Anemia, chronic disease (6) Major depression (7) Atrial flutter (8) CAD s/p stents Plan: Atrial fibrillation/flutter: Continue eliquis, rates controlled on cardizem Hypertension: Hydralazine prn, cardizem, Echocardiogram to evaluate filling pressures Pulmonary edema: Continue IV lasix, transition to PO, monitor I/O renal function Hyponatremia: likely from pulmonary infiltrates/edema, continue IV 3% saline per nephrology, urine/serum electrolytes -> RESOLVED Dysphagia: speech evaluation, soft puree diet CAD: continue aspirin/statin, outpatient stress test when stable Hypercarbia: Venturi mask, pulmonary toilet, CTA negative for PE Subjective Cardiovascular: Reports: no symptoms Respiratory: Reports: no symptoms Gastrointestinal/Abdominal: Reports: no symptoms Genitourinary: Reports: no symptoms Subjective Patient is alert on venturi mask 8 liters due to CO2 retention. Tolerating her current diet. López is in placed. Vitals stable, NA improved. No sign of acute distress noted. CXR today stable large heart size with increasing right lower lung zone opacity. Objective Last 24 Hour Vital Signs Date Time Temp Pulse Resp B/P (MAP) Pulse Ox O2 Delivery O2 Flow Rate FiO2 03/15/18 08:00 96 03/15/18 08:00 96.0 98 20 136/55 (82) 98 96.0 03/15/18 08:00 Venturi Mask 8.0 03/15/18 07:45 97 22 Nasal Cannula 4.0 36 03/15/18 07:45 Nasal Cannula 4.0 36 03/15/18 07:45 98 Nasal Cannula 4.0 36 03/15/18 05:39 102 149/66 03/15/18 04:00 102 03/15/18 04:00 97.7 104 20 149/66 (93) 95 97.7 03/15/18 04:00 Venturi Mask 8.0 03/15/18 00:36 105 23 97 Facial 35 03/15/18 00:00 105 03/15/18 00:00 Venturi Mask 8.0 03/15/18 00:00 97.5 105 20 132/61 (84) 95 97.5 03/14/18 21:03 115 149/83 03/14/18 20:00 98.8 108 18 149/83 (105) 95 98.8 03/14/18 20:00 115 03/14/18 20:00 Venturi Mask 8.0 03/14/18 19:10 96 Nasal Cannula 3.0 32 03/14/18 19:10 Nasal Cannula 3.0 32 03/14/18 19:09 76 20 Nasal Cannula 3.0 32 03/14/18 16:00 100 03/14/18 16:00 Venturi Mask 8.0 03/14/18 15:39 97.7 99 18 126/62 (83) 90 97.7 03/14/18 15:28 110 28 95 Facial 35 03/14/18 13:59 73 146/69 03/14/18 12:53 73 16 97 Facial 35 03/14/18 12:19 82 15 97 Facial 35 03/14/18 12:00 Venturi Mask 8.0 03/14/18 12:00 80 03/14/18 11:35 97.3 76 20 146/69 (94) 90 97.3 General Appearance: no apparent distress, alert EENT: PERRL/EOMI, normal ENT inspection, TMs normal Neck: non-tender, normal alignment, supple, normal inspection Rhythm: NSR Cardiovascular: normal peripheral pulses, normal rate, regular rhythm Respiratory/Chest: chest wall non-tender, accessory muscle use, crackles/rales , rhonchi - bilaterally Abdomen: normal bowel sounds, non tender, soft, no organomegaly Extremities: normal range of motion, non-tender, normal inspection Neurologic: drill runner II-XII grossly normal, no motor/sensory deficits Intake and Output 03/14/18 03/15/18 19:00 07:00 Intake Total 250 ml 200 ml Output Total 400 ml 300 ml Balance -150 ml -100 ml Intake Oral 250 ml 200 ml Output Urine Total 400 ml 300 ml Laboratory Tests Test 03/14/18 14:14 03/15/18 03:56 Arterial Blood pH 7.340 (7.350-7.450) Arterial Blood Partial Pressure CO2 60.9 mmHg (35.0-45.0) *H Arterial Blood Partial Pressure O2 84.9 mmHg (75.0-100.0) Arterial Blood HCO3 32.1 mmol/L (22.0-26.0) H Arterial Blood Oxygen Saturation 96.0 % (95-100) Arterial Blood Base Excess 4.7 (-2-2) H Ian Test Positive White Blood Count 4.9 K/UL (4.8-10.8) Red Blood Count 3.98 M/UL (4.20-5.40) L Hemoglobin 11.6 G/DL (12.0-16.0) L Hematocrit 35.5 % (37.0-47.0) L Mean Corpuscular Volume 89 FL (80-99) Mean Corpuscular Hemoglobin 29.0 PG (27.0-31.0) Mean Corpuscular Hemoglobin Concent 32.5 G/DL (32.0-36.0) Red Cell Distribution Width 14.0 % (11.6-14.8) Platelet Count 171 K/UL (150-450) Mean Platelet Volume 6.4 FL (6.5-10.1) L Neutrophils (%) (Auto) % (45.0-75.0) Lymphocytes (%) (Auto) % (20.0-45.0) Monocytes (%) (Auto) % (1.0-10.0) Eosinophils (%) (Auto) % (0.0-3.0) Basophils (%) (Auto) % (0.0-2.0) Differential Total Cells Counted 100 Neutrophils % (Manual) 90 % (45-75) H Lymphocytes % (Manual) 7 % (20-45) L Monocytes % (Manual) 3 % (1-10) Eosinophils % (Manual) 0 % (0-3) Basophils % (Manual) 0 % (0-2) Band Neutrophils 0 % (0-8) Platelet Estimate Adequate Platelet Morphology Normal Anisocytosis 1+ Sodium Level 141 MMOL/L (136-145) Potassium Level 4.4 MMOL/L (3.5-5.1) Chloride Level 102 MMOL/L (98-107) Carbon Dioxide Level 35 MMOL/L (21-32) H Anion Gap 4 mmol/L (5-15) L Blood Urea Nitrogen 13 mg/dL (7-18) Creatinine 0.5 MG/DL (0.55-1.30) L Estimat Glomerular Filtration Rate mL/min (>60) Glucose Level 145 MG/DL (74-106) H Uric Acid 5.6 MG/DL (2.6-7.2) Calcium Level 8.7 MG/DL (8.5-10.1) Phosphorus Level 4.2 MG/DL (2.5-4.9) Magnesium Level 2.0 MG/DL (1.8-2.4) Total Bilirubin 0.5 MG/DL (0.2-1.0) Aspartate Amino Transf (AST/SGOT) 10 U/L (15-37) L Alanine Aminotransferase (ALT/SGPT) 15 U/L (12-78) Alkaline Phosphatase 52 U/L (46-116) Pro-B-Type Natriuretic Peptide 4756 pg/mL (0-125) H Total Protein 5.9 G/DL (6.4-8.2) L Albumin 2.8 G/DL (3.4-5.0) L Globulin 3.1 g/dL Albumin/Globulin Ratio 0.9 (1.0-2.7) L Carcinoembryonic Antigen Pending Filsoof,Josue MENDEZ Mar 15, 2018 10:31
[2018-03-15 12:00] VITALS: BP 127/80
--- NOTE | 2018-03-15 12:24 | Cardiology Report ---
APPROVED REPORT EKG Measurement Heart [id number] Sinus rhythm with 1st degree AV block Right superior axis deviation Pulmonary disease pattern Septal infarct, age undetermined Abnormal ECG
--- NOTE | 2018-03-15 13:46 | Nephrology Progress Note ---
Assessment/Plan Problem List: (1) Hyponatremia Assessment: improving (2) COPD (chronic obstructive pulmonary disease) (3) HTN (hypertension) (4) Seizure disorder (5) Respiratory failure Assessment: retaining CO2 Assessment Retaining CO2 Hyponatremia etiology ? Plan Plan: steroid trial , taper as needed monitor Uric acid 3% Saline and Lasix as needed PO fluid restriction López monitor serum Na Subjective ROS Limited/Unobtainable: No Constitutional: Reports: other - stronger Objective Objective Last 24 Hour Vital Signs Date Time Temp Pulse Resp B/P (MAP) Pulse Ox O2 Delivery O2 Flow Rate FiO2 03/15/18 12:00 98.1 115 19 127/80 (96) 96 98.1 03/15/18 12:00 Venturi Mask 8.0 03/15/18 08:00 96 03/15/18 08:00 96.0 98 20 136/55 (82) 98 96.0 03/15/18 08:00 Venturi Mask 8.0 03/15/18 07:45 97 22 Nasal Cannula 4.0 36 03/15/18 07:45 Nasal Cannula 4.0 36 03/15/18 07:45 98 Nasal Cannula 4.0 36 03/15/18 05:39 102 149/66 03/15/18 04:00 102 03/15/18 04:00 97.7 104 20 149/66 (93) 95 97.7 03/15/18 04:00 Venturi Mask 8.0 03/15/18 00:36 105 23 97 Facial 35 03/15/18 00:00 105 03/15/18 00:00 Venturi Mask 8.0 03/15/18 00:00 97.5 105 20 132/61 (84) 95 97.5 03/14/18 21:03 115 149/83 03/14/18 20:00 98.8 108 18 149/83 (105) 95 98.8 03/14/18 20:00 115 03/14/18 20:00 Venturi Mask 8.0 03/14/18 19:10 96 Nasal Cannula 3.0 32 03/14/18 19:10 Nasal Cannula 3.0 32 03/14/18 19:09 76 20 Nasal Cannula 3.0 32 03/14/18 16:00 100 03/14/18 16:00 Venturi Mask 8.0 10/13/18 15:39 97.7 99 18 126/62 (83) 90 97.7 03/14/18 15:28 110 28 95 Facial 35 03/14/18 13:59 73 146/69 Intake and Output 03/14/18 03/15/18 19:00 07:00 Intake Total 250 ml 200 ml Output Total 400 ml 300 ml Balance -150 ml -100 ml Intake Oral 250 ml 200 ml Output Urine Total 400 ml 300 ml Laboratory Tests 03/14/18 14:14: Arterial Blood pH 7.340L, Arterial Blood Partial Pressure CO2 60.9*H, Arterial Blood Partial Pressure O2 84.9, Arterial Blood HCO3 32.1H, Arterial Blood Oxygen Saturation 96.0, Arterial Blood Base Excess 4.7H, Ian Test Positive 03/15/18 03:56: White Blood Count 4.9, Red Blood Count 3.98L, Hemoglobin 11.6L, Hematocrit 35.5L , Mean Corpuscular Volume 89, Mean Corpuscular Hemoglobin 29.0, Mean Corpuscular Hemoglobin Concent 32.5, Red Cell Distribution Width 14.0, Platelet Count 171, Mean Platelet Volume 6.4L, Neutrophils (%) (Auto) , Lymphocytes (%) ( Auto) , Monocytes (%) (Auto) , Eosinophils (%) (Auto) , Basophils (%) (Auto) , Differential Total Cells Counted 100, Neutrophils % (Manual) 90H, Lymphocytes % (Manual) 7L, Monocytes % (Manual) 3, Eosinophils % (Manual) 0, Basophils % ( Manual) 0, Band Neutrophils 0, Platelet Estimate Adequate, Platelet Morphology Normal, Anisocytosis 1+, Sodium Level 141, Potassium Level 4.4, Chloride Level 102, Carbon Dioxide Level 35H, Anion Gap 4L, Blood Urea Nitrogen 13, Creatinine 0.5L, Estimat Glomerular Filtration Rate , Glucose Level 145H, Uric Acid 5.6, Calcium Level 8.7, Phosphorus Level 4.2, Magnesium Level 2.0, Total Bilirubin 0.5, Aspartate Amino Transf (AST/SGOT) 10L, Alanine Aminotransferase (ALT/SGPT) 15, Alkaline Phosphatase 52, Pro-B-Type Natriuretic Peptide 4756H, Total Protein 5.9L, Albumin 2.8L, Globulin 3.1, Albumin/Globulin Ratio 0.9L, Carcinoembryonic Antigen [Pending] Height (Feet): 5 Height (Inches): 3.00 Weight (Pounds): 189 General Appearance: no apparent distress Cardiovascular: tachycardia Respiratory/Chest: decreased breath sounds Abdomen: soft Objective no change Danilo Huber MD Mar 15, 2018 13:46
--- NOTE | 2018-03-15 13:52 | Internal Med Progress Note ---
Subjective Date of Service: Mar 15, 2018 Physician Name Dutta,Juan Attending Physician Yonathan Mendoza MD Current Medications Medications (Trade) Dose Ordered Sig/Ibrahima Route PRN Reason Start Time Stop Time Status Last Admin Dose Admin Acetaminophen (Tylenol) 650 mg Q4H PRN ORAL fever 03/12/18 15:28 04/09/18 15:27 Albuterol/ Ipratropium (Albuterol/ Ipratropium) 3 ml Q4HRT PRN HHN Shortness of Breath 03/12/18 19:00 03/16/18 23:29 Apixaban (Eliquis) 5 mg BID ORAL 03/12/18 18:00 04/10/18 08:59 03/15/18 08:49 Atorvastatin Calcium (Lipitor) 10 mg BEDTIME ORAL 03/12/18 21:00 04/10/18 20:59 03/14/18 21:02 Dextrose (Dextrose 50%) 25 ml Q30M PRN IV Hypoglycemia 03/12/18 15:45 04/11/18 15:31 Dextrose (Dextrose 50%) 50 ml Q30M PRN IV hypoglycemia 03/12/18 15:45 04/11/18 15:44 Diltiazem HCl (Cardizem) 90 mg Q8HR ORAL 03/12/18 22:00 04/10/18 00:00 03/15/18 05:39 Hydralazine HCl (Apresoline) 25 mg Q4H PRN ORAL bp over 160 syst 03/12/18 15:30 04/11/18 15:29 Lorazepam (Ativan 2mg/ml 1ml) 1 mg Q4H PRN IV For Anxiety 03/12/18 16:00 03/18/18 11:59 Methylprednisolone Sodium Succinate (Solu-MEDROL) 40 mg EVERY 12 HOURS IVP 03/15/18 21:00 04/13/18 13:59 UNV Mirtazapine (Remeron) 15 mg BEDTIME ORAL 03/12/18 21:00 04/09/18 21:59 03/14/18 21:03 Morphine Sulfate (Morphine Sulfate) 1 mg Q4H PRN IVP For Pain 03/12/18 15:30 03/17/18 15:29 Ondansetron HCl (Zofran) 4 mg Q6H PRN IVP Nausea & Vomiting 03/12/18 15:30 04/09/18 15:29 Pantoprazole (Protonix) 40 mg EVERY 12 HOURS ORAL 03/15/18 21:00 04/14/18 20:59 UNV Polyethylene Glycol (Miralax) 17 gm HSPRN PRN ORAL Constipation 03/12/18 15:30 04/09/18 15:29 Risperidone (RisperDAL) 2 mg BEDTIME ORAL 03/12/18 21:00 04/10/18 20:59 03/14/18 21:03 Zolpidem Tartrate (Ambien) 5 mg HSPRN PRN ORAL Insomnia 03/12/18 21:15 03/17/18 21:14 03/14/18 21:03 Allergies: Coded Allergies: PIPERACILLIN (Unverified Allergy, Unknown, 03/10/18) TAZOBACTAM (Unverified Allergy, Unknown, 03/10/18) ROS Limited/Unobtainable: Yes Subjective 77 YO F admitted with generalized weakness. Now hyponatremia. Cover for Int Med-Dr Mendoza. CHRISTOPHER Objective Last Vital Signs Date Time Temp Pulse Resp B/P (MAP) Pulse Ox O2 Delivery O2 Flow Rate FiO2 03/15/18 12:00 98.1 115 19 127/80 (96) 96 98.1 03/15/18 12:00 Venturi Mask 8.0 03/15/18 07:45 36 Laboratory Tests Test 03/14/18 14:14 03/15/18 03:56 Arterial Blood pH 7.340 (7.350-7.450) Arterial Blood Partial Pressure CO2 60.9 mmHg (35.0-45.0) *H Arterial Blood Partial Pressure O2 84.9 mmHg (75.0-100.0) Arterial Blood HCO3 32.1 mmol/L (22.0-26.0) H Arterial Blood Oxygen Saturation 96.0 % (95-100) Arterial Blood Base Excess 4.7 (-2-2) H Ian Test Positive White Blood Count 4.9 K/UL (4.8-10.8) Red Blood Count 3.98 M/UL (4.20-5.40) L Hemoglobin 11.6 G/DL (12.0-16.0) L Hematocrit 35.5 % (37.0-47.0) L Mean Corpuscular Volume 89 FL (80-99) Mean Corpuscular Hemoglobin 29.0 PG (27.0-31.0) Mean Corpuscular Hemoglobin Concent 32.5 G/DL (32.0-36.0) Red Cell Distribution Width 14.0 % (11.6-14.8) Platelet Count 171 K/UL (150-450) Mean Platelet Volume 6.4 FL (6.5-10.1) L Neutrophils (%) (Auto) % (45.0-75.0) Lymphocytes (%) (Auto) % (20.0-45.0) Monocytes (%) (Auto) % (1.0-10.0) Eosinophils (%) (Auto) % (0.0-3.0) Basophils (%) (Auto) % (0.0-2.0) Differential Total Cells Counted 100 Neutrophils % (Manual) 90 % (45-75) H Lymphocytes % (Manual) 7 % (20-45) L Monocytes % (Manual) 3 % (1-10) Eosinophils % (Manual) 0 % (0-3) Basophils % (Manual) 0 % (0-2) Band Neutrophils 0 % (0-8) Platelet Estimate Adequate Platelet Morphology Normal Anisocytosis 1+ Sodium Level 141 MMOL/L (136-145) Potassium Level 4.4 MMOL/L (3.5-5.1) Chloride Level 102 MMOL/L (98-107) Carbon Dioxide Level 35 MMOL/L (21-32) H Anion Gap 4 mmol/L (5-15) L Blood Urea Nitrogen 13 mg/dL (7-18) Creatinine 0.5 MG/DL (0.55-1.30) L Estimat Glomerular Filtration Rate mL/min (>60) Glucose Level 145 MG/DL (74-106) H Uric Acid 5.6 MG/DL (2.6-7.2) Calcium Level 8.7 MG/DL (8.5-10.1) Phosphorus Level 4.2 MG/DL (2.5-4.9) Magnesium Level 2.0 MG/DL (1.8-2.4) Total Bilirubin 0.5 MG/DL (0.2-1.0) Aspartate Amino Transf (AST/SGOT) 10 U/L (15-37) L Alanine Aminotransferase (ALT/SGPT) 15 U/L (12-78) Alkaline Phosphatase 52 U/L (46-116) Pro-B-Type Natriuretic Peptide 4756 pg/mL (0-125) H Total Protein 5.9 G/DL (6.4-8.2) L Albumin 2.8 G/DL (3.4-5.0) L Globulin 3.1 g/dL Albumin/Globulin Ratio 0.9 (1.0-2.7) L Carcinoembryonic Antigen Pending Intake and Output 03/14/18 03/15/18 19:00 07:00 Intake Total 250 ml 200 ml Output Total 400 ml 300 ml Balance -150 ml -100 ml Intake Oral 250 ml 200 ml Output Urine Total 400 ml 300 ml Objective PHYSICAL EXAMINATION: GENERAL: The patient is a well-developed, well-nourished white female, in no apparent distress. HEENT: Eyes, pupils equal and responsive to light and accommodation. Extraocular movements are intact. NECK: Supple without lymphadenopathy. CHEST: Lungs are clear to auscultation bilaterally without wheezes or rales. CARDIOVASCULAR: Regular rate. S1, S2 are normal without murmurs, rubs, or gallops. ABDOMEN: Soft, nontender, and nondistended. Positive bowel sounds. No evidence of hepatosplenomegaly. Currently, no rebound or guarding noted. EXTREMITIES: Negative for clubbing, cyanosis, or edema. RECTAL: Refused. GENITAL: Refused. NEUROLOGIC: Cranial nerves II through XII are grossly intact without focal deficits. Assessment/Plan Problem List: (1) Generalized weakness (2) Deep vein thrombosis (DVT) of left lower extremity Assessment & Plan: Continue eliquis (3) Encephalopathy (4) Major depression (5) Hyponatremia Assessment & Plan: Workup in progress. See nephrology note. (6) Seizure disorder (7) COPD (chronic obstructive pulmonary disease) (8) HTN (hypertension) Assessment & Plan: Continue cardizem and hydralazine (9) Atrial flutter Assessment & Plan: See cardiology note. Status: not improved Juan Dutta MD Mar 15, 2018 13:52
[2018-03-15 16:00] VITALS: BP 121/55
[2018-03-15] MEDS ORDERED: NS 275ml ONE (18:42)
[2018-03-15] MEDS ORDERED: Tubing IV Secondary IV ONE (18:42)
[2018-03-15 20:00] VITALS: BP 126/53
[2018-03-15] MEDS: Zolpidem 5mg tab ORAL PRN (23:23)
[2018-03-16] VITALS: BP 116/63
[2018-03-16 04:00] VITALS: BP 139/66
[2018-03-16 04:32] LABS: HEMOGLOBIN 11.6 G/DL (12.0-16.0); MEAN CORPUSCULAR VOLUME 88 FL (80-99); PLATELET COUNT 176 K/UL (150-450); RED BLOOD COUNT 3.87 M/UL (4.20-5.40); RED CELL DISTRIBUTION WIDTH 13.7 % (11.6-14.8); WHITE BLOOD COUNT 5.6 K/UL (4.8-10.8)
[2018-03-16 04:35] LABS: ANION GAP 3 mmol/L (5-15); BLOOD UREA NITROGEN 17 mg/dL (7-18); CALCIUM 8.6 MG/DL (8.5-10.1); CARBON DIOXIDE 34 MMOL/L (21-32); CHLORIDE 101 MMOL/L (98-107); CREATININE 0.6 MG/DL (0.55-1.30); POTASSIUM 4.1 MMOL/L (3.5-5.1); SODIUM 138 MMOL/L (136-145)
[2018-03-16] MEDS: dilTIAZem HCl 90mg tab ORAL SCH ×2 (05:35→14:08)
[2018-03-16 08:00] VITALS: BP 131/53
[2018-03-16] MEDS: Solu-MEDROL 40mg Inj IVP SCH (09:28)
[2018-03-16] MEDS: Eliquis 2.5mg tablet ORAL SCH (09:28)
[2018-03-16] MEDS ORDERED: AMBIEN5 MG ORAL (10:21)
[2018-03-16] MEDS ORDERED: PROTONIX40 MG ORAL (10:21)
[2018-03-16] MEDS ORDERED: MIRTAZAPINE15 M3 ORAL (10:21)
[2018-03-16] MEDS ORDERED: RISPERDAL2 MG ORAL (10:21)
[2018-03-16] MEDS ORDERED: ELIQUIS2.5 MG ORAL (10:21)
[2018-03-16] MEDS ORDERED: CARDIZEM90 MG ORAL (10:21)
[2018-03-16] MEDS ORDERED: DUONEB 0.5-3(2.53 ML HHN (10:21)
--- NOTE | 2018-03-16 10:25 | Pulmonology Progress Note ---
Assessment/Plan Problems: (1) Encephalopathy acute (2) Hyponatremia (3) Seizure disorder (4) HTN (hypertension) (5) Anemia, chronic disease (6) Major depression Assessment/Plan no new complains Na better heart rate controlled off laxis lasix IV, respiratory treatment Neuro evaluation titrate cardiac meds swallow study aspiration precaution. dc to correction today Subjective ROS Limited/Unobtainable: No HEENT: Repors: no symptoms Respiratory: Reports: no symptoms Allergies: Coded Allergies: PIPERACILLIN (Unverified Allergy, Unknown, 03/10/18) TAZOBACTAM (Unverified Allergy, Unknown, 03/10/18) Objective Last 24 Hour Vital Signs Date Time Temp Pulse Resp B/P (MAP) Pulse Ox O2 Delivery O2 Flow Rate FiO2 03/16/18 08:00 60 03/16/18 07:01 89 20 Nasal Cannula 35 03/16/18 07:01 Nasal Cannula 4.0 36 03/16/18 07:01 98 Nasal Cannula 4.0 36 03/16/18 06:05 97.5 03/16/18 05:35 67 139/66 03/16/18 04:58 67 12 98 Facial 35 03/16/18 04:00 71 03/16/18 04:00 97.5 61 19 139/66 (90) 100 97.5 03/16/18 04:00 Bi-pap 03/16/18 02:35 60 11 98 Facial 35 03/16/18 01:05 60 11 98 Facial 35 03/16/18 00:00 61 03/16/18 00:00 98.3 65 20 116/63 (80) 99 98.3 03/16/18 00:00 Bi-pap 03/15/18 22:54 60 15 98 Facial 35 03/15/18 21:25 105 12 96 Facial 35 03/15/18 21:14 103 126/53 03/15/18 20:00 98.2 103 18 126/53 (77) 99 98.2 03/15/18 20:00 Bi-pap 03/15/18 19:35 84 03/15/18 19:20 97 19 Nasal Cannula 35 03/15/18 19:20 97 Bi-pap 35 03/15/18 19:20 Bi-pap 35 03/15/18 19:20 77 19 97 Facial 35 03/15/18 16:00 98.2 72 20 121/55 (77) 96 98.2 03/15/18 16:00 Venturi Mask 8.0 03/15/18 15:30 94 03/15/18 14:25 113 128/69 03/15/18 13:00 101 03/15/18 12:00 98.1 115 19 127/80 (96) 96 98.1 03/15/18 12:00 Venturi Mask 8.0 Intake and Output 03/15/18 03/16/18 19:00 07:00 Intake Total 380 ml 150 ml Output Total 400 ml 300 ml Balance -20 ml -150 ml Intake Oral 380 ml 150 ml Output Urine Total 400 ml 300 ml General Appearance: WD/WN HEENT: normocephalic, atraumatic Respiratory/Chest: chest wall non-tender, lungs clear Breasts: no masses Cardiovascular: normal rate Abdomen: normal bowel sounds, no organomegaly Genitourinary: normal external genitalia Skin: no rash, no lesions Neurologic/Psychiatric: size tester II-XII grossly normal Lymphatic: no neck adenopathy Laboratory Tests 03/16/18 03:50: White Blood Count 5.6, Red Blood Count 3.87L, Hemoglobin 11.6L, Hematocrit 34.0L , Mean Corpuscular Volume 88, Mean Corpuscular Hemoglobin 30.0, Mean Corpuscular Hemoglobin Concent 34.2, Red Cell Distribution Width 13.7, Platelet Count 176, Mean Platelet Volume 6.6, Neutrophils (%) (Auto) , Lymphocytes (%) ( Auto) , Monocytes (%) (Auto) , Eosinophils (%) (Auto) , Basophils (%) (Auto) , Differential Total Cells Counted 100, Neutrophils % (Manual) 88H, Lymphocytes % (Manual) 7L, Monocytes % (Manual) 5, Eosinophils % (Manual) 0, Basophils % ( Manual) 0, Band Neutrophils 0, Agustina Rods 1+, Platelet Estimate Adequate, Platelet Morphology Normal, Hypochromasia 1+, Anisocytosis 1+, Sodium Level 138 , Potassium Level 4.1, Chloride Level 101, Carbon Dioxide Level 34H, Anion Gap 3L, Blood Urea Nitrogen 17, Creatinine 0.6, Estimat Glomerular Filtration Rate , Glucose Level 132H, Calcium Level 8.6, Carcinoembryonic Antigen [Pending] Current Medications Medications (Trade) Dose Ordered Sig/Ibrahima Route PRN Reason Start Time Stop Time Status Last Admin Dose Admin Acetaminophen (Tylenol) 650 mg Q4H PRN ORAL fever 03/12/18 15:28 04/09/18 15:27 Albuterol/ Ipratropium (Albuterol/ Ipratropium) 3 ml Q4HRT PRN HHN Shortness of Breath 03/12/18 19:00 03/16/18 23:29 Apixaban (Eliquis) 5 mg BID ORAL 03/12/18 18:00 04/10/18 08:59 03/16/18 09:28 Atorvastatin Calcium (Lipitor) 10 mg BEDTIME ORAL 03/12/18 21:00 04/10/18 20:59 03/15/18 21:15 Dextrose (Dextrose 50%) 25 ml Q30M PRN IV Hypoglycemia 03/12/18 15:45 04/11/18 15:31 Dextrose (Dextrose 50%) 50 ml Q30M PRN IV hypoglycemia 03/12/18 15:45 04/11/18 15:44 Diltiazem HCl (Cardizem) 90 mg Q8HR ORAL 03/12/18 22:00 04/10/18 00:00 03/16/18 05:35 Hydralazine HCl (Apresoline) 25 mg Q4H PRN ORAL bp over 160 syst 03/12/18 15:30 04/11/18 15:29 Lorazepam (Ativan 2mg/ml 1ml) 1 mg Q4H PRN IV For Anxiety 03/12/18 16:00 03/18/18 11:59 Mirtazapine (Remeron) 15 mg BEDTIME ORAL 03/12/18 21:00 04/09/18 21:59 03/15/18 21:14 Morphine Sulfate (Morphine Sulfate) 1 mg Q4H PRN IVP For Pain 03/12/18 15:30 03/17/18 15:29 03/16/18 05:35 Ondansetron HCl (Zofran) 4 mg Q6H PRN IVP Nausea & Vomiting 03/12/18 15:30 04/09/18 15:29 Pantoprazole (Protonix) 40 mg EVERY 12 HOURS ORAL 03/15/18 21:00 04/14/18 20:59 03/16/18 09:28 Polyethylene Glycol (Miralax) 17 gm HSPRN PRN ORAL Constipation 03/12/18 15:30 04/09/18 15:29 Risperidone (RisperDAL) 2 mg BEDTIME ORAL 03/12/18 21:00 04/10/18 20:59 03/15/18 21:15 Zolpidem Tartrate (Ambien) 5 mg HSPRN PRN ORAL Insomnia 03/12/18 21:15 03/17/18 21:14 03/15/18 23:23 Mendel Sierra MD Mar 16, 2018 10:24
--- NOTE | 2018-03-16 10:51 | Cardiology Progress Note ---
Assessment/Plan Status: stable Assessment/Plan Assessment (1) Encephalopathy acute (2) Hyponatremia (3) Seizure disorder (4) HTN (hypertension) (5) Anemia, chronic disease (6) Major depression (7) Atrial flutter (8) CAD s/p stents Plan: Atrial fibrillation/flutter: Continue eliquis, rates controlled on cardizem Hypertension: Hydralazine prn, cardizem, Echocardiogram to evaluate filling pressures Pulmonary edema:resolved Hyponatremia: likely from pulmonary infiltrates/edema, continue IV 3% saline per nephrology, urine/serum electrolytes -> RESOLVED Dysphagia: speech evaluation, soft puree diet CAD: continue aspirin/statin, outpatient stress test when stable Hypercarbia: Venturi mask, pulmonary toilet, CTA negative for PE Dispo planning: SNF Subjective Cardiovascular: Reports: no symptoms Respiratory: Reports: no symptoms Gastrointestinal/Abdominal: Reports: no symptoms Genitourinary: Reports: no symptoms Subjective Patient tolerating oxygen via nasal cannula @ 4L/min, respirations even and unlabored. No s/s of respiratory distress noted. Tolerating her current diet. López is in placed. Vitals stable, NA improved. No sign of acute distress noted. Mild confusion. Plan to return to shelter. Objective Last 24 Hour Vital Signs Date Time Temp Pulse Resp B/P (MAP) Pulse Ox O2 Delivery O2 Flow Rate FiO2 03/16/18 08:00 60 03/16/18 07:01 89 20 Nasal Cannula 35 03/16/18 07:01 Nasal Cannula 4.0 36 03/16/18 07:01 98 Nasal Cannula 4.0 36 03/16/18 06:05 97.5 03/16/18 05:35 67 139/66 03/16/18 04:58 67 12 98 Facial 35 03/16/18 04:00 71 03/16/18 04:00 97.5 61 19 139/66 (90) 100 97.5 03/16/18 04:00 Bi-pap 03/16/18 02:35 60 11 98 Facial 35 03/16/18 01:05 60 11 98 Facial 35 03/16/18 00:00 61 03/16/18 00:00 98.3 65 20 116/63 (80) 99 98.3 03/16/18 00:00 Bi-pap 03/15/18 22:54 60 15 98 Facial 35 03/15/18 21:25 105 12 96 Facial 35 03/15/18 21:14 103 126/53 03/15/18 20:00 98.2 103 18 126/53 (77) 99 98.2 03/15/18 20:00 Bi-pap 03/15/18 19:35 84 03/15/18 19:20 97 19 Nasal Cannula 35 03/15/18 19:20 97 Bi-pap 35 03/15/18 19:20 Bi-pap 35 03/15/18 19:20 77 19 97 Facial 35 03/15/18 16:00 98.2 72 20 121/55 (77) 96 98.2 03/15/18 16:00 Venturi Mask 8.0 03/15/18 15:30 94 03/15/18 14:25 113 128/69 03/15/18 13:00 101 03/15/18 12:00 98.1 115 19 127/80 (96) 96 98.1 03/15/18 12:00 Venturi Mask 8.0 General Appearance: no apparent distress, lethargic EENT: PERRL/EOMI, normal ENT inspection, TMs normal, pharynx normal Neck: non-tender, normal alignment, supple, normal inspection, no JVD Rhythm: NSR Cardiovascular: normal peripheral pulses, normal rate, regular rhythm Respiratory/Chest: chest wall non-tender, lungs clear, normal breath sounds Abdomen: normal bowel sounds, non tender Extremities: normal range of motion, non-tender Neurologic: pattern attendant II-XII grossly normal, no motor/sensory deficits, disoriented Intake and Output 03/15/18 03/16/18 19:00 07:00 Intake Total 380 ml 150 ml Output Total 400 ml 300 ml Balance -20 ml -150 ml Intake Oral 380 ml 150 ml Output Urine Total 400 ml 300 ml Laboratory Tests Test 03/16/18 03:50 White Blood Count 5.6 K/UL (4.8-10.8) Red Blood Count 3.87 M/UL (4.20-5.40) L Hemoglobin 11.6 G/DL (12.0-16.0) L Hematocrit 34.0 % (37.0-47.0) L Mean Corpuscular Volume 88 FL (80-99) Mean Corpuscular Hemoglobin 30.0 PG (27.0-31.0) Mean Corpuscular Hemoglobin Concent 34.2 G/DL (32.0-36.0) Red Cell Distribution Width 13.7 % (11.6-14.8) Platelet Count 176 K/UL (150-450) Mean Platelet Volume 6.6 FL (6.5-10.1) Neutrophils (%) (Auto) % (45.0-75.0) Lymphocytes (%) (Auto) % (20.0-45.0) Monocytes (%) (Auto) % (1.0-10.0) Eosinophils (%) (Auto) % (0.0-3.0) Basophils (%) (Auto) % (0.0-2.0) Differential Total Cells Counted 100 Neutrophils % (Manual) 88 % (45-75) H Lymphocytes % (Manual) 7 % (20-45) L Monocytes % (Manual) 5 % (1-10) Eosinophils % (Manual) 0 % (0-3) Basophils % (Manual) 0 % (0-2) Band Neutrophils 0 % (0-8) Agustina Rods 1+ Platelet Estimate Adequate Platelet Morphology Normal Hypochromasia 1+ Anisocytosis 1+ Sodium Level 138 MMOL/L (136-145) Potassium Level 4.1 MMOL/L (3.5-5.1) Chloride Level 101 MMOL/L (98-107) Carbon Dioxide Level 34 MMOL/L (21-32) H Anion Gap 3 mmol/L (5-15) L Blood Urea Nitrogen 17 mg/dL (7-18) Creatinine 0.6 MG/DL (0.55-1.30) Estimat Glomerular Filtration Rate mL/min (>60) Glucose Level 132 MG/DL (74-106) H Calcium Level 8.6 MG/DL (8.5-10.1) Carcinoembryonic Antigen Pending Filsoof,Josue MENDEZ Mar 16, 2018 10:51
--- NOTE | 2018-03-16 11:15 | Cardiology Report ---
APPROVED REPORT EXAM: Two-dimensional and M-mode echocardiogram with Doppler and color Doppler. M-Mode DIMENSIONS IVSd2.5 (0.7-1.1cm)Left Atrium (MM)4.6 (1.6-4.0cm) LVDd5.1 (3.5-5.6cm)Aortic Root3.1 (2.0-3.7cm) PWd2.1 (0.7-1.1cm)Aortic Cusp Exc.1.0 (1.5-2.0cm) IVSs2.3 cm LVDs3.6 (2.5-4.0cm) PWs2.8 cm Study quality precludes accurate assessment of regional wall motion. Normal left ventricular chamber size, systolic function and wall motion as visualized . Left ventricular ejection fraction estimated to be 55 %. Mild left ventricular hypertrophy by 2-D. Posterior pericardial effusion present . Moderate left atrial enlargement . Right cardiac chamber sizes are within normal limits. Focal aortic valve sclerosis with reduced cusp excursion, suggestive aortic stenosis . Heavily Thickened mitral valve leaflets with reduced excursion, suggestive mitral stenosis . Mitral annulus and aortic root calcification. Pulmonic valve not well visualized. Normal tricuspid valve structure. IVC dilated at size 3.1 with slightly physiological collapse suggestive increase RA pressure . A color flow and spectral Doppler study was performed and revealed: Mild aortic insuffiecy. Peak aortic valve gradient of 13 mm Hg and a mean of 7 mmHg. Aortic valve area 1.9 cm2 calculated by continuity equation. Moderate mitral regurgitation. Peak moderate valve gradient of 13 mm Hg and a mean of 5 mmHg. Mitral inflow velocities indicates possible pseudo normalization pattern implying moderately elevated left atrial pressure (Grade II ) Mild tricuspid regurgitation. Tricuspid systolic velocities suggests peak right ventricular systolic pressure of 32 mmHg.
[2018-03-16 12:00] VITALS: BP 132/77
--- NOTE | 2018-03-16 12:01 | Infectious Diseases Prog Note ---
Assessment/Plan Assessment/Plan Assessment: Afebrile No leukocytosis -u/a neg -Bcx neg Acute respiratory distress- 2ry to vol overload- no evidence of PNA -CTA chest: No evidence of pulmonary embolus, aortic dissection or aneurysm. Atelectasis of the left lower lobe with associated volume loss as described above. No significant pleural effusion demonstrated. Trace pleural fluid is noted bilaterally. Small pericardial effusion. Moderate atherosclerotic vascular disease. Question of thickening of the wall of the upper esophagus in the midesophagus. Consider EGD for further evaluation. -CXR: Slightly worsening pulmonary vascular congestion. Correlate clinically Hyponatremia Generalized weakness- no evidence of infectious process Itchy Rash- presumed scabies, s/p empiric tx Hx of UTI and bronchitis 09/2017, s/p Rx -100K P.mirabilis (S Ceftriaxone) History of coag-negative Staph bacteremia (in July,), s/p Rx 2 weeks -JIMY tickened MV, no vegetations Hypertension. COPD. History of atrial flutter. CAD status post stent. History of alcohol abuse. History of bilateral hip replacement. Seizure disorder. hx L DVT MRSA and VRE colonized Plan: -Continue to monitor off abx -03/13 SP Permethrin cream and ivermectin x1 -03/10 SP IV Vanco and Cefepime x1 -10/24 SP Cefdnir #5 -10/19/17 SP Levaquin #3 -Monitor CBC/CMP, temperatures -aspiration precautions -Renal and cards f/u -Contact isolation Will continue to follow along with you. Subjective Allergies: Coded Allergies: PIPERACILLIN (Unverified Allergy, Unknown, 03/10/18) TAZOBACTAM (Unverified Allergy, Unknown, 03/10/18) Subjective afebrile no leukocytosis on bipap off abx Objective Vital Signs Last 24 Hour Vital Signs Date Time Temp Pulse Resp B/P (MAP) Pulse Ox O2 Delivery O2 Flow Rate FiO2 03/16/18 08:00 97.6 61 18 131/53 (79) 100 97.6 03/16/18 08:00 60 03/16/18 08:00 Bi-pap 03/16/18 07:01 89 20 Nasal Cannula 35 03/16/18 07:01 Nasal Cannula 4.0 36 03/16/18 07:01 98 Nasal Cannula 4.0 36 03/16/18 06:05 97.5 03/16/18 05:35 67 139/66 03/16/18 04:58 67 12 98 Facial 35 03/16/18 04:00 71 03/16/18 04:00 97.5 61 19 139/66 (90) 100 97.5 03/16/18 04:00 Bi-pap 03/16/18 02:35 60 11 98 Facial 35 03/16/18 01:05 60 11 98 Facial 35 03/16/18 00:00 61 03/16/18 00:00 98.3 65 20 116/63 (80) 99 98.3 03/16/18 00:00 Bi-pap 03/15/18 22:54 60 15 98 Facial 35 03/15/18 21:25 105 12 96 Facial 35 03/15/18 21:14 103 126/53 03/15/18 20:00 98.2 103 18 126/53 (77) 99 98.2 03/15/18 20:00 Bi-pap 03/15/18 19:35 84 03/15/18 19:20 97 19 Nasal Cannula 35 03/15/18 19:20 97 Bi-pap 35 03/15/18 19:20 Bi-pap 35 03/15/18 19:20 77 19 97 Facial 35 03/15/18 16:00 98.2 72 20 121/55 (77) 96 98.2 03/15/18 16:00 Venturi Mask 8.0 03/15/18 15:30 94 03/15/18 14:25 113 128/69 03/15/18 13:00 101 03/15/18 12:00 98.1 115 19 127/80 (96) 96 98.1 03/15/18 12:00 Venturi Mask 8.0 Height (Feet): 5 Height (Inches): 3.00 Weight (Pounds): 189 Objective GENERAL: The patient is a well-developed, well-nourished white female, in no apparent distress. HEENT: Eyes, pupils equal and responsive to light and accommodation. Extraocular movements are intact. NECK: Supple without lymphadenopathy. CHEST: Lungs are clear to auscultation bilaterally without wheezes or rales. CARDIOVASCULAR: Regular rate. S1, S2 are normal without murmurs, rubs, or gallops. ABDOMEN: Soft, nontender, and nondistended. Positive bowel sounds. No evidence of hepatosplenomegaly. Currently, no rebound or guarding noted. EXTREMITIES: Negative for clubbing, cyanosis, or edema. Laboratory Tests Test 03/16/18 03:50 White Blood Count 5.6 K/UL (4.8-10.8) Red Blood Count 3.87 M/UL (4.20-5.40) L Hemoglobin 11.6 G/DL (12.0-16.0) L Hematocrit 34.0 % (37.0-47.0) L Mean Corpuscular Volume 88 FL (80-99) Mean Corpuscular Hemoglobin 30.0 PG (27.0-31.0) Mean Corpuscular Hemoglobin Concent 34.2 G/DL (32.0-36.0) Red Cell Distribution Width 13.7 % (11.6-14.8) Platelet Count 176 K/UL (150-450) Mean Platelet Volume 6.6 FL (6.5-10.1) Neutrophils (%) (Auto) % (45.0-75.0) Lymphocytes (%) (Auto) % (20.0-45.0) Monocytes (%) (Auto) % (1.0-10.0) Eosinophils (%) (Auto) % (0.0-3.0) Basophils (%) (Auto) % (0.0-2.0) Differential Total Cells Counted 100 Neutrophils % (Manual) 88 % (45-75) H Lymphocytes % (Manual) 7 % (20-45) L Monocytes % (Manual) 5 % (1-10) Eosinophils % (Manual) 0 % (0-3) Basophils % (Manual) 0 % (0-2) Band Neutrophils 0 % (0-8) Agustina Rods 1+ Platelet Estimate Adequate Platelet Morphology Normal Hypochromasia 1+ Anisocytosis 1+ Sodium Level 138 MMOL/L (136-145) Potassium Level 4.1 MMOL/L (3.5-5.1) Chloride Level 101 MMOL/L (98-107) Carbon Dioxide Level 34 MMOL/L (21-32) H Anion Gap 3 mmol/L (5-15) L Blood Urea Nitrogen 17 mg/dL (7-18) Creatinine 0.6 MG/DL (0.55-1.30) Estimat Glomerular Filtration Rate mL/min (>60) Glucose Level 132 MG/DL (74-106) H Calcium Level 8.6 MG/DL (8.5-10.1) Carcinoembryonic Antigen Pending Current Medications Medications (Trade) Dose Ordered Sig/Ibrahima Route PRN Reason Start Time Stop Time Status Last Admin Dose Admin Acetaminophen (Tylenol) 650 mg Q4H PRN ORAL fever 03/12/18 15:28 04/09/18 15:27 Albuterol/ Ipratropium (Albuterol/ Ipratropium) 3 ml Q4HRT PRN HHN Shortness of Breath 03/12/18 19:00 03/16/18 23:29 Apixaban (Eliquis) 5 mg BID ORAL 03/12/18 18:00 04/10/18 08:59 03/16/18 09:28 Atorvastatin Calcium (Lipitor) 10 mg BEDTIME ORAL 03/12/18 21:00 04/10/18 20:59 03/15/18 21:15 Dextrose (Dextrose 50%) 25 ml Q30M PRN IV Hypoglycemia 03/12/18 15:45 04/11/18 15:31 Dextrose (Dextrose 50%) 50 ml Q30M PRN IV hypoglycemia 03/12/18 15:45 04/11/18 15:44 Diltiazem HCl (Cardizem) 90 mg Q8HR ORAL 03/12/18 22:00 04/10/18 00:00 03/16/18 05:35 Hydralazine HCl (Apresoline) 25 mg Q4H PRN ORAL bp over 160 syst 03/12/18 15:30 04/11/18 15:29 Lorazepam (Ativan 2mg/ml 1ml) 1 mg Q4H PRN IV For Anxiety 03/12/18 16:00 03/18/18 11:59 Mirtazapine (Remeron) 15 mg BEDTIME ORAL 03/12/18 21:00 04/09/18 21:59 03/15/18 21:14 Morphine Sulfate (Morphine Sulfate) 1 mg Q4H PRN IVP For Pain 03/12/18 15:30 03/17/18 15:29 03/16/18 05:35 Ondansetron HCl (Zofran) 4 mg Q6H PRN IVP Nausea & Vomiting 03/12/18 15:30 04/09/18 15:29 Pantoprazole (Protonix) 40 mg EVERY 12 HOURS ORAL 03/15/18 21:00 04/14/18 20:59 03/16/18 09:28 Polyethylene Glycol (Miralax) 17 gm HSPRN PRN ORAL Constipation 03/12/18 15:30 04/09/18 15:29 Risperidone (RisperDAL) 2 mg BEDTIME ORAL 03/12/18 21:00 04/10/18 20:59 03/15/18 21:15 Zolpidem Tartrate (Ambien) 5 mg HSPRN PRN ORAL Insomnia 03/12/18 21:15 03/17/18 21:14 03/15/18 23:23 Danica Nayak M.D. Mar 16, 2018 12:01
[2018-03-16 14:08] VITALS: BP 132/77
--- NOTE | 2018-03-16 23:08 | General Progress Note ---
Assessment/Plan Status: stable, progressing Assessment/Plan schizoaffective d/o Agitation hx of alcohol abuse. increase Risperdal 2mg qhs cont Depakote increase Ativan provided st/ro Subjective Date patient seen: Mar 16, 2018 Neurologic/Psychiatric: Reports: anxiety, depressed Allergies: Coded Allergies: PIPERACILLIN (Unverified Allergy, Unknown, 03/10/18) TAZOBACTAM (Unverified Allergy, Unknown, 03/10/18) Objective Last 24 Hour Vital Signs Date Time Temp Pulse Resp B/P (MAP) Pulse Ox O2 Delivery O2 Flow Rate FiO2 03/16/18 14:08 66 132/77 03/16/18 12:00 Bi-pap 03/16/18 12:00 97.7 66 16 132/77 (95) 96 97.7 03/16/18 08:00 97.6 61 18 131/53 (79) 100 97.6 03/16/18 08:00 60 03/16/18 08:00 Bi-pap 03/16/18 07:01 89 20 Nasal Cannula 35 03/16/18 07:01 Nasal Cannula 4.0 36 03/16/18 07:01 98 Nasal Cannula 4.0 36 03/16/18 06:05 97.5 03/16/18 05:35 67 139/66 03/16/18 04:58 67 12 98 Facial 35 03/16/18 04:00 71 03/16/18 04:00 97.5 61 19 139/66 (90) 100 97.5 03/16/18 04:00 Bi-pap 03/16/18 02:35 60 11 98 Facial 35 03/16/18 01:05 60 11 98 Facial 35 03/16/18 00:00 61 03/16/18 00:00 98.3 65 20 116/63 (80) 99 98.3 03/16/18 00:00 Bi-pap Intake and Output 03/15/18 03/16/18 19:00 07:00 Intake Total 380 ml 150 ml Output Total 400 ml 300 ml Balance -20 ml -150 ml Intake Oral 380 ml 150 ml Output Urine Total 400 ml 300 ml Laboratory Tests 03/16/18 03:50: White Blood Count 5.6, Red Blood Count 3.87L, Hemoglobin 11.6L, Hematocrit 34.0L , Mean Corpuscular Volume 88, Mean Corpuscular Hemoglobin 30.0, Mean Corpuscular Hemoglobin Concent 34.2, Red Cell Distribution Width 13.7, Platelet Count 176, Mean Platelet Volume 6.6, Neutrophils (%) (Auto) , Lymphocytes (%) ( Auto) , Monocytes (%) (Auto) , Eosinophils (%) (Auto) , Basophils (%) (Auto) , Differential Total Cells Counted 100, Neutrophils % (Manual) 88H, Lymphocytes % (Manual) 7L, Monocytes % (Manual) 5, Eosinophils % (Manual) 0, Basophils % ( Manual) 0, Band Neutrophils 0, Agustina Rods 1+, Platelet Estimate Adequate, Platelet Morphology Normal, Hypochromasia 1+, Anisocytosis 1+, Sodium Level 138 , Potassium Level 4.1, Chloride Level 101, Carbon Dioxide Level 34H, Anion Gap 3L, Blood Urea Nitrogen 17, Creatinine 0.6, Estimat Glomerular Filtration Rate , Glucose Level 132H, Calcium Level 8.6, Carcinoembryonic Antigen [Pending] Height (Feet): 5 Height (Inches): 3.00 Weight (Pounds): 189 General Appearance: no apparent distress, alert Neurologic: oriented x 3, responsive, depressed affect Luiz Morrison MD Mar 16, 2018 23:08
--- NOTE | 2018-03-16 23:09 | Psych Consult Progress Note ---
Psych Consult Progress Note Consult 03/15/18 the pt is doing better anxious and irritable poor insight Vital Signs Last 24 Hour Vital Signs Date Time Temp Pulse Resp B/P (MAP) Pulse Ox O2 Delivery O2 Flow Rate FiO2 03/16/18 14:08 66 132/77 03/16/18 12:00 Bi-pap 03/16/18 12:00 97.7 66 16 132/77 (95) 96 97.7 03/16/18 08:00 97.6 61 18 131/53 (79) 100 97.6 03/16/18 08:00 60 03/16/18 08:00 Bi-pap 03/16/18 07:01 89 20 Nasal Cannula 35 03/16/18 07:01 Nasal Cannula 4.0 36 03/16/18 07:01 98 Nasal Cannula 4.0 36 03/16/18 06:05 97.5 03/16/18 05:35 67 139/66 03/16/18 04:58 67 12 98 Facial 35 03/16/18 04:00 71 03/16/18 04:00 97.5 61 19 139/66 (90) 100 97.5 03/16/18 04:00 Bi-pap 03/16/18 02:35 60 11 98 Facial 35 03/16/18 01:05 60 11 98 Facial 35 03/16/18 00:00 61 03/16/18 00:00 98.3 65 20 116/63 (80) 99 98.3 03/16/18 00:00 Bi-pap Labs Laboratory Tests Test 03/16/18 03:50 White Blood Count 5.6 K/UL (4.8-10.8) Red Blood Count 3.87 M/UL (4.20-5.40) L Hemoglobin 11.6 G/DL (12.0-16.0) L Hematocrit 34.0 % (37.0-47.0) L Mean Corpuscular Volume 88 FL (80-99) Mean Corpuscular Hemoglobin 30.0 PG (27.0-31.0) Mean Corpuscular Hemoglobin Concent 34.2 G/DL (32.0-36.0) Red Cell Distribution Width 13.7 % (11.6-14.8) Platelet Count 176 K/UL (150-450) Mean Platelet Volume 6.6 FL (6.5-10.1) Neutrophils (%) (Auto) % (45.0-75.0) Lymphocytes (%) (Auto) % (20.0-45.0) Monocytes (%) (Auto) % (1.0-10.0) Eosinophils (%) (Auto) % (0.0-3.0) Basophils (%) (Auto) % (0.0-2.0) Differential Total Cells Counted 100 Neutrophils % (Manual) 88 % (45-75) H Lymphocytes % (Manual) 7 % (20-45) L Monocytes % (Manual) 5 % (1-10) Eosinophils % (Manual) 0 % (0-3) Basophils % (Manual) 0 % (0-2) Band Neutrophils 0 % (0-8) Agustina Rods 1+ Platelet Estimate Adequate Platelet Morphology Normal Hypochromasia 1+ Anisocytosis 1+ Sodium Level 138 MMOL/L (136-145) Potassium Level 4.1 MMOL/L (3.5-5.1) Chloride Level 101 MMOL/L (98-107) Carbon Dioxide Level 34 MMOL/L (21-32) H Anion Gap 3 mmol/L (5-15) L Blood Urea Nitrogen 17 mg/dL (7-18) Creatinine 0.6 MG/DL (0.55-1.30) Estimat Glomerular Filtration Rate mL/min (>60) Glucose Level 132 MG/DL (74-106) H Calcium Level 8.6 MG/DL (8.5-10.1) Carcinoembryonic Antigen Pending Problems: (1) Encephalopathy (2) Anxiety Status: Acute (3) Dementia Status: Acute (4) Bipolar depression Assessment & Plan: Dementia with behavioral dist Encephalopathy Psychotic d/o Risperdal .5mg tid ativan prn trazodone 50mg qhs Luiz Morrison MD Mar 16, 2018 23:09
--- NOTE | 2018-03-17 10:14 | Discharge Summary ---
Discharge Summary Discharge Summary _ DATE OF ADMISSION:03/10/2018 DATE OF DISCHARGE: 03/16/2018 REASON FOR ADMISSION: 77 years old female with past medical history of COPD, hypertension, atrial flutter, seizure disorder, schizophrenia, depression, history of alcohol abuse, was sent from the correction facility for evaluation due to generalized weakness. Patient reported shortness of breath , but no chest pain . She was sleeping more than usual and felt depressed. Patient also reported generalized weakness. She denied suicidal or homicidal ideations. No nausea ,no vomiting ,no diarrhea , and abdominal pain. Upon evaluation vital signs revealed tachycardia and hypoxia. Patient required placement on Venturi mask Laboratory workup revealed no leukocytosis ,stable hemoglobin and hematocrit, sodium 117, stable renal parameters. Troponin negative. EKG showed atrial flutter/fibrillation with rapid ventricular response, heart rate 120 . Cardizem given in ED with improvement in heart rate. Chest x-ray revealed interstitial edema and left pleural effusion. ABG showed evidence of hypercapnia with PCO2 59 , pH 7.3. Patient admitted with acute encephalopathy, hyponatremia, possible pneumonia , acute respiratory distress secondary to pulmonary edema, hypertension, seizure disorder. CONSULTANTS: english language learner teacher dr. Wakefield pulmonary Dr. Sierra ID specialist Dr. Moeller surgery Dr. Gonzalez psychiatrist [facility]SE: Patient admitted to [facility]. Supplemental oxygen provided via Venturi mask and then due to persistent hypercapnia changed to BiPAP. Pulmonary toilet provided around the clock and as needed. Patient started on short-term steroids with gradual tapering down . Antitussive provided as needed. Patient was followed up with ABG, which revealed consistent hypercapnia. Patient eventually was able to be weaned from BiPAP to nasal cannula. CT of the chest revealed no evidence of pulmonary emboli. Patient was follow up with the chest x-rays. Patient initially started on IV diuretic/Lasix due to fluid overload/ pulmonary edema. Cardiorenal parameters and volumes were closely monitored. Echocardiogram revealed ejection fraction of 55%, evidence of moderate mitral regurgitation and right ventricular systolic pressure of 32. Business Relationship Manager closely followed. Heart rate was controlled with Cardizem. Anticoagulation with Eliquis continued. Heart rate stabilized. No evidence of bleeding, Hemoglobin and hematocrit were clsoely monitored, and remained at baseline, stable. Blood pressure was managed with Cardizem and hydralazine added on as needed basis. Pulmonary edema resolved . Patient was off diuretic. Patient was on antiplatelet therapy with aspirin and statin. Business Relationship Manager recommended outpatient stress test when stable. Youth Ministry Director followed for acute hyponatremia. Acute hyponatremia was likely secondary to edema. Patient was treated with hypertonic 3% sodium chloride solution. Patient was on fluid restriction and Lasix. Urine studies were done and evaluated. Acute hyponatremia resolved. Sodium 138 prior to discharge. Infectious disease specialist followed . Patient had itchy skin rash, presumed scabies. Patient status post treatment for scabies. Chest x-ray revealed no evidence of pneumonia. Urinalysis revealed no evidence of UTI. Blood culture were negative. Infectious disease doctor recommended to keep patient off antibiotic and closely monitored. Surgeon seen the patient for present on admission right buttock skin ulcer. Wound care provided as per surgeon recommendations. No evidence of infection. Patient undergone bedside swallow evaluation and video swallow evaluation, which revealed evidence of dysphagia. Diet downgraded as per speech therapist recommendations and provided with a 1 to 1 supervision and strict aspiration/ reflux precautions. Psychiatry seen and evaluated patient , and diagnosed patient with dementia with behavioral disturbances, encephalopathy and psychotic disorder as well as bipolar depression. Psychiatric medication regimen was optimized as per psychiatrist. Supportive care provided. Pain management was addressed . Seizure precautions maintained. No evidence of seizure activity. Bowel regimen instituted. Patient was stabilized and ready for discharge to correction facility for continuation of care. FINAL DIAGNOSES: Acute encephalopathy Atrial flutter with rapid ventricular response Hypercapnic respiratory failure Acute respiratory distress secondary to fluid overload Pulmonary edema-resolved Acute hyponatremia -resolved Dysphagia Hypertension Coronary artery disease , status post stents Skin rash, presumed scabies status post treatment Right buttock ulcer present on admission Anemia of chronic disease Seizure disorder Dementia with behavioral disturbances Psychotic disorder Bipolar depression Skin rash, presumed scabies , status post treatment Right buttock ulcer , present on admission DISCHARGE MEDICATIONS: See Medication Reconciliation list. DISCHARGE INSTRUCTIONS: Patient was discharged to the correction facility. Follow up with medical doctor at the facility. I have been assigned to dictate discharge summary for this account. I was not involved in the patient's management. Jazzy Campuzano NP Mar 17, 2018 10:14
== END 2018-03-16 15:30 | DRG 70 ==
LOC: EDBD 13:20 → EDBEDREQSVC 15:20 → EDBEDREQ 15:20 → EDBEDREQSVC 15:33 → EMR 17:19 → 2E 17:22 → EDBEDREQ 19:58 → EDBEDREQTM 19:58 → EDBEDREQSVC 19:58 → EDBEDREQ 20:40 → 2E 22:39 → 2W 03-12 15:23
DX: G93.40 Encephalopathy, unspecified (principal); J96.92 Respiratory failure, unspecified with hypercapnia; E87.1 Hypo-osmolality and hyponatremia; F03.91 Unspecified dementia, unspecified severity, with behavioral disturbance; I48.92 Unspecified atrial flutter; F31.89 Other bipolar disorder; G40.909 Epilepsy, unspecified, not intractable, without status epilepticus; F32.9 Major depressive disorder, single episode, unspecified; Z86.718 Personal history of other venous thrombosis and embolism; J44.9 Chronic obstructive pulmonary disease, unspecified; Z79.01 Long term (current) use of anticoagulants; R13.10 Dysphagia, unspecified; R06.03 Acute respiratory distress; I10 Essential (primary) hypertension; I25.10 Atherosclerotic heart disease of native coronary artery without angina pectoris; Z95.5 Presence of coronary angioplasty implant and graft; B86 Scabies; L98.419 Non-pressure chronic ulcer of buttock with unspecified severity; D63.8 Anemia in other chronic diseases classified elsewhere; Z88.0 Allergy status to penicillin; Z22.322 Carrier or suspected carrier of Methicillin resistant Staphylococcus aureus; F10.21 Alcohol dependence, in remission; Z96.643 Presence of artificial hip joint, bilateral; F41.9 Anxiety disorder, unspecified; F29 Unspecified psychosis not due to a substance or known physiological condition; F25.9 Schizoaffective disorder, unspecified; R45.1 Restlessness and agitation
CPT/HCPCS: 36415; 36600; 71045; 71275; 74230; 80048; 80053; 80061; 81003; 82378; 82553; 82803; 82962; 83605; 83735; 83880; 83930; 83935; 84100; 84300; 84443; 84484; 84550; 85007; 85025; 85610; 85730; 86140; 87040; 87081; 92610; 93005; 93306; 93970; 94660; 94664; 94760; 96365; 96366; 96367; 96375; 99291; J7620

== ENCOUNTER 2018-03-20 01:14 | Inpatient (IN) | payer MEDICARE ==
[~2018-03-20] VITALS: Ht 170.2 cm; Wt 86.6 kg
[2018-03-20] VITALS (7 sets, daily range): BP systolic 100–160; BP diastolic 47–96
[~2018-03-20 01:14] MED LIST changes: +CARDIZEM90 MG ORAL; +DEPAKOTE ER250 MG ORAL; +DUONEB 0.5-3(2.53 ML HHN; +RISPERDAL2 MG ORAL; +VOLTAREN100 G1 TP
[2018-03-20 02:27] LABS: HEMATOCRIT 35.9 % (37.0-47.0); HEMOGLOBIN 11.9 G/DL (12.0-16.0); MEAN CORPUSCULAR VOLUME 89 FL (80-99); PLATELET COUNT 149 K/UL (150-450); RED BLOOD COUNT 4.04 M/UL (4.20-5.40); RED CELL DISTRIBUTION WIDTH 14.1 % (11.6-14.8); WHITE BLOOD COUNT 8.6 K/UL (4.8-10.8)
[2018-03-20 02:43] LABS: ALANINE AMINOTRANSFERASE 47 U/L (12-78); ALBUMIN 2.8 G/DL (3.4-5.0); ALBUMIN/GLOBULIN RATIO 0.9 (1.0-2.7); ALKALINE PHOSPHATASE 58 U/L (46-116); ANION GAP -1 mmol/L (5-15); ASPARTATE AMINO TRANSFERASE 11 U/L (15-37); BILIRUBIN,TOTAL 0.6 MG/DL (0.2-1.0); BLOOD UREA NITROGEN 10 mg/dL (7-18); CALCIUM 8.5 MG/DL (8.5-10.1); CARBON DIOXIDE 40 MMOL/L (21-32); CHLORIDE 97 MMOL/L (98-107); CREATINE KINASE 11 U/L (26-308); CREATININE 0.4 MG/DL (0.55-1.30); POTASSIUM 5.1 MMOL/L (3.5-5.1); SODIUM 136 MMOL/L (136-145)
[2018-03-20 02:58] LABS: APPEARANCE,URINE CLEAR; BILIRUBIN, URINE NEGATIVE (NEGATIVE); GLUCOSE, URINE (UA) NEGATIVE (NEGATIVE); KETONES,URINE NEGATIVE (NEGATIVE); LEUKOCYTE ESTERASE ,URINE 1+ (NEGATIVE); NITRITE,URINE NEGATIVE (NEGATIVE); PH,URINE 5 (4.5-8.0); PROTEIN,URINE 2+ (NEGATIVE); UROBILINOGEN,URINE 4 MG/DL (0.0-1.0)
--- NOTE | 2018-03-20 02:59 | Emergency Room Report ---
History of Present Illness General Chief Complaint: Altered Mental Status Source: Medical Record, EMS Present Illness HPI Is a 77-year-old female with multiple medical problem including CHF on other course. She was just [facility]. She presents with chief complaint of shortness of breath and hypoxia. She was given Ambien tonight for sleep. They found her with altered mental status and unresponsiveness. Her oxidation was very low. They brought her here for evaluation. Unable to get any other history from this patient. This was no fever chills but no nausea no vomiting. Apparently patient was at baseline tonight. Allergies: Coded Allergies: PIPERACILLIN (Unverified Allergy, Unknown, 03/10/18) TAZOBACTAM (Unverified Allergy, Unknown, 03/10/18) Patient History Past Medical History: see triage record, old chart reviewed, HTN, CAD, CHF Past Surgical History: other Pertinent Family History: none Social History: Denies: smoking Last Menstrual Period: unk Now: No Immunizations: other Reviewed Nursing Documentation: PMH: Agreed; PSxH: Agreed Nursing Documentation-PMH Hx Cardiac Problems: Yes Hx Hypertension: Yes Hx Pacemaker: No - stent Hx Asthma: No Hx COPD: Yes Hx Diabetes: No Hx Cancer: No Hx Gastrointestinal Problems: Yes Hx Dialysis: No Hx Neurological Problems: Yes Hx Cerebrovascular Accident: Yes Hx Dementia: Yes Hx Seizures: Yes Hx Epilepsy: Yes Hx Tremors: Yes Hx Vertigo: Yes Hx Dizziness: Yes Hx Syncope: Yes Hx Headaches: Yes - occasional Hx Weakness: Yes Hx Fatigue: Yes Review of Systems Eye: Denies: eye pain, blurred vision ENT: Denies: ear pain, nose congestion, throat swelling Respiratory: Reports: shortness of breath; Denies: cough Cardiovascular: Denies: chest pain, palpitations Gastrointestinal: Denies: abdominal pain, diarrhea, nausea, vomiting Musculoskeletal: Denies: back pain, joint pain Skin: Denies: rash Neurological: Denies: headache, numbness Endocrine: Denies: increased thirst, increased urine Hematologic/Lymphatic: Denies: easy bruising All Other Systems: negative except mentioned in HPI Physical Exam Vital Signs Date Time Temp Pulse Resp B/P (MAP) Pulse Ox O2 Delivery O2 Flow Rate FiO2 03/20/18 01:18 67 16 145/57 96 Non-Rebreather 10.0 Sp02 EP Interpretation: reviewed, abnormal General Appearance: well appearing, moderate distress, lethargic, obese Head: normocephalic, atraumatic Eyes: bilateral eye PERRL, bilateral eye EOMI ENT: hearing grossly normal, normal pharynx Neck: full range of motion, supple, no meningismus Respiratory: chest non-tender, accessory muscle use, rales, rhonchi Cardiovascular #1: regular rate, rhythm, no murmur Gastrointestinal: normal bowel sounds, non tender, no mass, no organomegaly, no bruit, non-distended Musculoskeletal: back normal Neurologic: grossly normal Skin: warm/dry Medical Decision Making Diagnostic Impression: Primary Impression: Respiratory failure Qualified Codes: J96.01 - Acute respiratory failure with hypoxia Additional Impression: Acute diastolic CHF (congestive heart failure) ER Course Patient with CHF exacerbation. She may have a component of sleep apnea worsen by the Ambien. No evidence of ACS, PE, dissection to name a few. We'll admit for further workup. Lasix given here. I discussed the case with Dr. Mendoza who will admit. Lab Results Impression labs with elevated BNP EKG Diagnostic Results Rate: normal Rhythm: NSR ST Segments: no acute changes Rhythm Strip Diag. Results Rhythm Strip Time: 02:58 EP Interpretation: yes Rate: 70 Rhythm: NSR, no PVC's, no ectopy Chest X-Ray Diagnostic Results Chest X-Ray Diagnostic Results : Chest X-Ray Ordered: Yes # of Views/Limited/Complete: 1 View Indication: Shortness of Breath Interpretation: no pneumothorax, other - cardiomegaly with vascular congestion Impression: Other - CHF Electronically Signed by: Wild Go MD Last Vital Signs Date Time Temp Pulse Resp B/P (MAP) Pulse Ox O2 Delivery O2 Flow Rate FiO2 03/20/18 01:18 67 16 145/57 96 Non-Rebreather 10.0 Status: improved Disposition: ADMITTED INPATIENT Condition: Serious Referrals: Yonathan Mendoza MD (PCP) Wild Go MD Mar 20, 2018 02:59
[2018-03-20 03:09] LABS: COLOR,URINE YELLOW
[2018-03-20] MEDS ORDERED: Miralax 17gm pkt ORAL PRN (07:15)
[2018-03-20] MEDS ORDERED: Albuterol/Ipratropium 3ml neb HHN PRN (07:15)
--- NOTE | 2018-03-20 10:01 | Diagnostic Imaging Report ---
Indication: Shortness of breath Technique: One view of the chest Comparison: 03/15/2018 Findings: Patient rotation and body habitus limits assessment. Again demonstrated is bilateral diffuse interstitial and airspace edema and a large left pleural effusion. There is probably a small right pleural effusion as well. The heart is enlarged. Pleural fluid appears increased from the previous study. Impression: Cardiomegaly with evidence of congestive heart failure, bilateral left greater than right pleural effusions.
[2018-03-20] MEDS: Eliquis 2.5mg tablet ORAL SCH ×2 (10:15→17:26)
--- NOTE | 2018-03-20 12:12 | Consultation ---
History of Present Illness General Date patient seen: Mar 20, 2018 Chief Complaint: Altered Mental Status Present Illness HPI 77-year-old female, history of hypertension, COPD, atrial flutter, seizure disorder, depression/schizophrenia, history of alcohol abuse, coming from [facility] for dyspnea. Patient was found to have acute pulmonary edema and admitted to telemetry for further work up. P Allergies: Coded Allergies: PIPERACILLIN (Unverified Allergy, Unknown, 03/10/18) TAZOBACTAM (Unverified Allergy, Unknown, 03/10/18) Medication History Scheduled Apixaban (Eliquis), 5 MG ORAL BID Diltiazem HCl (Diltiazem HCl), 90 MG ORAL Q8HR Furosemide* (Lasix*), 40 MG ORAL DAILY, (Reported) Mirtazapine* (Mirtazapine*), 15 MG ORAL BEDTIME Pantoprazole* (Protonix*), 40 MG ORAL EVERY 12 HOURS Risperidone* (Risperdal*), 2 MG ORAL BEDTIME Scheduled PRN Zolpidem Tartrate* (Ambien*), 5 MG ORAL BEDTIME PRN for Insomnia, (Reported) Discontinued Medications Acetaminophen (Acetaminophen), 650 MG ORAL Q4HR PRN for Mild Pain/Temp > 100.5, (Reported) Discontinued Reason: Therapy completed Al Hydroxide/mg Hydroxide (Mag-Al Plus Suspension), 30 ML PO prn Q6hr, (Reported ) Discontinued Reason: Therapy completed Allopurinol* (Allopurinol*), 100 MG ORAL DAILY Discontinued Reason: Therapy completed Apixaban (Eliquis), 5 MG ORAL BID Discontinued Reason: Therapy completed Atorvastatin Calcium* (Lipitor*), 10 MG ORAL BEDTIME Discontinued Reason: Therapy completed Bisacodyl (Bisacodyl), 10 MG RC for Constipation, (Reported) Discontinued Reason: Therapy completed Bisacodyl* (Dulcolax*), 10 MG ORAL PRN daily, (Reported) Discontinued Reason: Therapy completed Bupropion HCl (Wellbutrin), 150 MG ORAL DAILY, (Reported) Discontinued Reason: Therapy completed Cefdinir (Cefdinir), 300 MG PO BID, (Reported) Discontinued Reason: Therapy completed Dextran 70/Hypromellose (Artificial Tears Eye Drops*), 1 DROP BOTH EYES, ( Reported) Discontinued Reason: Therapy completed Diclofenac Sodium (Voltaren), 100 GM TP BID, (Reported) Discontinued Reason: Therapy completed Diltiazem Hcl* (Cardizem*), 60 MG ORAL Q6H Discontinued Reason: Therapy completed Divalproex Sodium* (Depakote*), 250 MG PO Q12HR, (Reported) Discontinued Reason: Therapy completed Divalproex Sodium* (Depakote Er*), 250 MG ORAL EVERY 12 HOURS, (Reported) Discontinued Reason: Therapy completed Docusate Sodium* (Docusate Sodium*), 250 MG ORAL DAILY, (Reported) Discontinued Reason: Therapy completed Hydralazine HCl (Hydralazine HCl), 25 MG PO Q6HR, (Reported) Discontinued Reason: Therapy completed Hydrocodone Bit/Acetaminophen 5-325* (Hughes 5-325 Tablet*), 1 TAB ORAL Q6HR PRN for For Pain, (Reported) Discontinued Reason: Therapy completed Ipratropium/Albuterol Sulfate (DuoNeb 0.5-3(2.5)mg/3ml), 3 ML HHN EVERY 6 HOURS PRN for Shortness of Breath, (Reported) Discontinued Reason: Therapy completed Ipratropium/Albuterol Sulfate (DuoNeb 0.5-3(2.5)mg/3ml), 3 ML HHN Q4HRT PRN Discontinued Reason: Therapy completed Lisinopril (Lisinopril*), 5 MG ORAL DAILY, (Reported) Discontinued Reason: Therapy completed Metoprolol Tartrate (Metoprolol Tartrate), 25 MG ORAL Q12HR Discontinued Reason: Therapy completed Mirtazapine* (Mirtazapine*), 15 MG ORAL BEDTIME, (Reported) Discontinued Reason: Therapy completed Multivitamin With Minerals (Multivitamins With Minerals*), 1 TAB ORAL DAILY, ( Reported) Discontinued Reason: Therapy completed Nitrofurantoin Monohyd/M-Cryst* (Macrobid 100 Mg*), 100 MG ORAL EVERY 12 HOURS, (Reported) Discontinued Reason: Therapy completed Nitroglycerin (Nitroglycerin Patch), 1 EACH TD Q6HR, (Reported) Discontinued Reason: Therapy completed Manter-3 Fatty Acids/Fish Oil* (Fish Oil 1,000 Mg Softgel*), 1 CAP ORAL DAILY, ( Reported) Discontinued Reason: Therapy completed Pantoprazole* (Pantoprazole*), 40 MG ORAL DAILY, (Reported) Discontinued Reason: Therapy completed Polyethylene Glycol 3350* (Miralax*), 17 GM ORAL PRN at bedtime PRN for Constipation, (Reported) Discontinued Reason: Therapy completed Promethazine/Phenyleph/Codeine (Promethazine Vc-Codeine Syrup), 10 ML ORAL Q4H PRN for For Cough, (Reported) Discontinued Reason: Therapy completed Pseudoephedrine Hcl (Sudogest), 30 MG PO BID, (Reported) Discontinued Reason: Therapy completed Ranitidine Hcl (Ranitidine Hcl), 150 MG ORAL BEDTIME, (Reported) Discontinued Reason: Therapy completed Risperidone* (Risperdal*), 0.5 MG ORAL BID, (Reported) Discontinued Reason: Therapy completed Rivaroxaban (Xarelto*), 10 MG ORAL DAILY, (Reported) Discontinued Reason: Therapy completed Solifenacin Succinate (Vesicare*), 10 MG ORAL DAILY, (Reported) Discontinued Reason: Therapy completed Solifenacin Succinate (Vesicare*), 10 MG ORAL DAILY, (Reported) Discontinued Reason: Therapy completed Tramadol Hcl* (Ultram*), 50 MG ORAL Q12HR PRN for For Pain, (Reported) Discontinued Reason: Therapy completed Trimethoprim/Sulfamethoxazole 160/800* (Bactrim Ds Tablet*), 1 TAB ORAL TWICE A DAY, (Reported) Discontinued Reason: Therapy completed Vancomycin/0.9 % Sod Chloride (Vancomycin-0.9% NaCl 1 G/250), 1 GM IV Q12HR, ( Reported) Discontinued Reason: Therapy completed Zolpidem Tartrate* (Ambien*), 5 MG ORAL HSPRN PRN Discontinued Reason: Therapy completed Patient History Healthcare decision maker Resuscitation status Full Code Advanced Directive on File No Past Medical/Surgical History Past Medical/Surgical History: (1) Intractable back pain (2) Wheelchair bound (3) Major depression (4) Gout (5) Bipolar depression (6) COPD (chronic obstructive pulmonary disease) (7) Dementia Review of Systems Constitutional: Reports: malaise, weakness Respiratory: Reports: orthopnea, shortness of breath All Other Systems: negative except mentioned in HPI Physical Exam General Appearance: WD/WN, no apparent distress Lines, tubes and drains: peripheral HEENT: normocephalic, atraumatic Neck: non-tender, normal alignment Respiratory/Chest: chest wall non-tender, rhonchi - bilaterally, rhonchi - left, rhonchi - right Cardiovascular/Chest: normal peripheral pulses, normal rate Abdomen: normal bowel sounds, soft Genitourinary/Rectal: normal genital exam, normal rectal exam Extremities: normal range of motion, non-tender Neurologic: caser shoe parts II-XII grossly normal Last 24 Hour Vital Signs Date Time Temp Pulse Resp B/P (MAP) Pulse Ox O2 Delivery O2 Flow Rate FiO2 03/20/18 09:00 Simple Mask 5.0 03/20/18 08:00 97.4 115 16 160/96 (117) 96 97.4 03/20/18 04:00 96.7 68 22 152/47 (82) 98 96.7 03/20/18 04:00 71 03/20/18 03:35 97.5 70 16 157/53 99 Simple Mask 5.0 97.5 03/20/18 03:30 Simple Mask 5.0 03/20/18 03:03 97.5 70 16 157/53 99 Simple Mask 5.0 97.5 03/20/18 01:18 67 16 145/57 96 Non-Rebreather 10.0 Intake and Output 03/19/18 03/20/18 18:59 06:59 Intake Total 0 ml Balance 0 ml Intake Oral 0 ml # Voids 2 Laboratory Tests Test 03/20/18 02:06 03/20/18 02:50 03/20/18 08:20 White Blood Count 8.6 K/UL (4.8-10.8) Red Blood Count 4.04 M/UL (4.20-5.40) L Hemoglobin 11.9 G/DL (12.0-16.0) L Hematocrit 35.9 % (37.0-47.0) L Mean Corpuscular Volume 89 FL (80-99) Mean Corpuscular Hemoglobin 29.4 PG (27.0-31.0) Mean Corpuscular Hemoglobin Concent 33.1 G/DL (32.0-36.0) Red Cell Distribution Width 14.1 % (11.6-14.8) Platelet Count 149 K/UL (150-450) L Mean Platelet Volume 7.0 FL (6.5-10.1) Neutrophils (%) (Auto) % (45.0-75.0) Lymphocytes (%) (Auto) % (20.0-45.0) Monocytes (%) (Auto) % (1.0-10.0) Eosinophils (%) (Auto) % (0.0-3.0) Basophils (%) (Auto) % (0.0-2.0) Sodium Level 136 MMOL/L (136-145) Potassium Level 5.1 MMOL/L (3.5-5.1) Chloride Level 97 MMOL/L (98-107) L Carbon Dioxide Level 40 MMOL/L (21-32) H Anion Gap -1 mmol/L (5-15) L Blood Urea Nitrogen 10 mg/dL (7-18) Creatinine 0.4 MG/DL (0.55-1.30) L Estimat Glomerular Filtration Rate mL/min (>60) Glucose Level 126 MG/DL (74-106) H Calcium Level 8.5 MG/DL (8.5-10.1) Total Bilirubin 0.6 MG/DL (0.2-1.0) Aspartate Amino Transf (AST/SGOT) 11 U/L (15-37) L Alanine Aminotransferase (ALT/SGPT) 47 U/L (12-78) Alkaline Phosphatase 58 U/L (46-116) Total Creatine Kinase 11 U/L (26-308) L Creatine Kinase MB 1.0 NG/ML (0.0-3.6) Creatine Kinase MB Relative Index 9.0 Troponin I 0.022 ng/mL (0.000-0.056) 0.023 ng/mL (0.000-0.056) Pro-B-Type Natriuretic Peptide 3330 pg/mL (0-125) H Total Protein 5.8 G/DL (6.4-8.2) L Albumin 2.8 G/DL (3.4-5.0) L Globulin 3.0 g/dL Albumin/Globulin Ratio 0.9 (1.0-2.7) L Urine Color Yellow Urine Appearance Clear Urine pH 5 (4.5-8.0) Urine Specific [place] 1.025 (1.005-1.035) Urine Protein 2+ (NEGATIVE) H Urine Glucose (UA) Negative (NEGATIVE) Urine Ketones Negative (NEGATIVE) Urine Blood 2+ (NEGATIVE) H Urine Nitrite Negative (NEGATIVE) Urine Bilirubin Negative (NEGATIVE) Urine Urobilinogen 4 MG/DL (0.0-1.0) H Urine Leukocyte Esterase 1+ (NEGATIVE) H Urine RBC 2-4 /HPF (0 - 2) H Urine WBC 0-2 /HPF (0 - 2) Urine Squamous Epithelial Cells Few /LPF (NONE/OCC) Urine Bacteria Few /HPF (NONE) Height (Feet): 5 Height (Inches): 7.00 Weight (Pounds): 210 Medications Current Medications Medications (Trade) Dose Ordered Sig/Ibrahima Route PRN Reason Start Time Stop Time Status Last Admin Dose Admin Acetaminophen (Tylenol) 650 mg Q4H PRN ORAL Fever 03/20/18 07:15 04/19/18 07:14 Albuterol/ Ipratropium (Albuterol/ Ipratropium) 3 ml Q4H PRN HHN Shortness of Breath 03/20/18 07:15 03/25/18 07:14 Apixaban (Eliquis) 5 mg BID ORAL 03/20/18 09:00 04/19/18 08:59 03/20/18 10:15 Dextrose (Dextrose 50%) 25 ml Q30M PRN IV Hypoglycemia 03/20/18 07:15 04/19/18 07:14 Dextrose (Dextrose 50%) 50 ml Q30M PRN IV Hypoglycemia 03/20/18 07:15 04/19/18 07:14 Diltiazem HCl (Cardizem) 90 mg Q8HR ORAL 03/20/18 14:00 04/19/18 13:59 Furosemide (Lasix) 40 mg EVERY 8 HOURS IV 03/20/18 14:00 04/19/18 13:59 Mirtazapine (Remeron) 15 mg BEDTIME ORAL 03/20/18 21:00 04/19/18 20:59 Ondansetron HCl (Zofran) 4 mg Q6H PRN IVP Nausea & Vomiting 03/20/18 07:15 04/19/18 07:14 Pantoprazole (Protonix) 40 mg BIAC ORAL 03/20/18 09:00 04/19/18 08:59 03/20/18 10:15 Polyethylene Glycol (Miralax) 17 gm DAILYPRN PRN ORAL Constipation 03/20/18 07:15 04/19/18 07:14 Risperidone (RisperDAL) 2 mg BEDTIME ORAL 03/20/18 21:00 04/19/18 20:59 Temazepam (Restoril) 15 mg HSPRN PRN ORAL Insomnia 03/20/18 21:00 03/27/18 20:59 Assessment/Plan Problem List: (1) Respiratory failure, acute ICD Codes: J96.00 - Acute respiratory failure, unspecified whether with hypoxia or hypercapnia SNOMED: 54893002 (2) Pulmonary edema ICD Codes: J81.1 - Pulmonary edema SNOMED: 78451376 (3) COPD (chronic obstructive pulmonary disease) ICD Codes: J44.9 - Chronic obstructive pulmonary disease, unspecified SNOMED: 09854131 (4) Seizure disorder ICD Codes: G40.909 - Seizure disorder SNOMED: 341105763 (5) Major depression ICD Codes: F32.9 - Major depressive disorder, single episode, unspecified SNOMED: 17955272, 340634169 (6) Gout ICD Codes: M10.9 - Gout, unspecified SNOMED: 96144012 (7) Bipolar depression ICD Codes: F31.30 - Bipolar disorder, current episode depressed, mild or moderate severity, unspecified SNOMED: 14097636 Assessment/Plan respiratory treatment check electrolytes diuretics check electrolytes dvt prophylaxis echo was done recently. \ Mendel Sierra MD Mar 20, 2018 12:12
--- NOTE | 2018-03-20 12:16 | Consultation ---
History of Present Illness General Date patient seen: Mar 20, 2018 Time patient seen: 13:06 Chief Complaint: Altered Mental Status Present Illness HPI 77-year-old female, history of hypertension, COPD, atrial flutter, seizure disorder, depression/schizophrenia, history of alcohol abuse, coming from rehabilitation for dyspnea. Patient was found to have acute pulmonary edema on chest x ray -(Cardiomegaly with evidence of congestive heart failure, bilateral left greater than right pleural effusions.) She is currently somnolent. Troponin negative. Allergies: Coded Allergies: PIPERACILLIN (Unverified Allergy, Unknown, 03/10/18) TAZOBACTAM (Unverified Allergy, Unknown, 03/10/18) Medication History Scheduled Apixaban (Eliquis), 5 MG ORAL BID Diltiazem HCl (Diltiazem HCl), 90 MG ORAL Q8HR Furosemide* (Lasix*), 40 MG ORAL DAILY, (Reported) Mirtazapine* (Mirtazapine*), 15 MG ORAL BEDTIME Pantoprazole* (Protonix*), 40 MG ORAL EVERY 12 HOURS Risperidone* (Risperdal*), 2 MG ORAL BEDTIME Scheduled PRN Zolpidem Tartrate* (Ambien*), 5 MG ORAL BEDTIME PRN for Insomnia, (Reported) Discontinued Medications Acetaminophen (Acetaminophen), 650 MG ORAL Q4HR PRN for Mild Pain/Temp > 100.5, (Reported) Discontinued Reason: Therapy completed Al Hydroxide/mg Hydroxide (Mag-Al Plus Suspension), 30 ML PO prn Q6hr, (Reported ) Discontinued Reason: Therapy completed Allopurinol* (Allopurinol*), 100 MG ORAL DAILY Discontinued Reason: Therapy completed Apixaban (Eliquis), 5 MG ORAL BID Discontinued Reason: Therapy completed Atorvastatin Calcium* (Lipitor*), 10 MG ORAL BEDTIME Discontinued Reason: Therapy completed Bisacodyl (Bisacodyl), 10 MG RC for Constipation, (Reported) Discontinued Reason: Therapy completed Bisacodyl* (Dulcolax*), 10 MG ORAL PRN daily, (Reported) Discontinued Reason: Therapy completed Bupropion HCl (Wellbutrin), 150 MG ORAL DAILY, (Reported) Discontinued Reason: Therapy completed Cefdinir (Cefdinir), 300 MG PO BID, (Reported) Discontinued Reason: Therapy completed Dextran 70/Hypromellose (Artificial Tears Eye Drops*), 1 DROP BOTH EYES, ( Reported) Discontinued Reason: Therapy completed Diclofenac Sodium (Voltaren), 100 GM TP BID, (Reported) Discontinued Reason: Therapy completed Diltiazem Hcl* (Cardizem*), 60 MG ORAL Q6H Discontinued Reason: Therapy completed Divalproex Sodium* (Depakote*), 250 MG PO Q12HR, (Reported) Discontinued Reason: Therapy completed Divalproex Sodium* (Depakote Er*), 250 MG ORAL EVERY 12 HOURS, (Reported) Discontinued Reason: Therapy completed Docusate Sodium* (Docusate Sodium*), 250 MG ORAL DAILY, (Reported) Discontinued Reason: Therapy completed Hydralazine HCl (Hydralazine HCl), 25 MG PO Q6HR, (Reported) Discontinued Reason: Therapy completed Hydrocodone Bit/Acetaminophen 5-325* ([place] 5-325 Tablet*), 1 TAB ORAL Q6HR PRN for For Pain, (Reported) Discontinued Reason: Therapy completed Ipratropium/Albuterol Sulfate (DuoNeb 0.5-3(2.5)mg/3ml), 3 ML HHN EVERY 6 HOURS PRN for Shortness of Breath, (Reported) Discontinued Reason: Therapy completed Ipratropium/Albuterol Sulfate (DuoNeb 0.5-3(2.5)mg/3ml), 3 ML HHN Q4HRT PRN Discontinued Reason: Therapy completed Lisinopril (Lisinopril*), 5 MG ORAL DAILY, (Reported) Discontinued Reason: Therapy completed Metoprolol Tartrate (Metoprolol Tartrate), 25 MG ORAL Q12HR Discontinued Reason: Therapy completed Mirtazapine* (Mirtazapine*), 15 MG ORAL BEDTIME, (Reported) Discontinued Reason: Therapy completed Multivitamin With Minerals (Multivitamins With Minerals*), 1 TAB ORAL DAILY, ( Reported) Discontinued Reason: Therapy completed Nitrofurantoin Monohyd/M-Cryst* (Macrobid 100 Mg*), 100 MG ORAL EVERY 12 HOURS, (Reported) Discontinued Reason: Therapy completed Nitroglycerin (Nitroglycerin Patch), 1 EACH TD Q6HR, (Reported) Discontinued Reason: Therapy completed [place]-3 Fatty Acids/Fish Oil* (Fish Oil 1,000 Mg Softgel*), 1 CAP ORAL DAILY, ( Reported) Discontinued Reason: Therapy completed Pantoprazole* (Pantoprazole*), 40 MG ORAL DAILY, (Reported) Discontinued Reason: Therapy completed Polyethylene Glycol 3350* (Miralax*), 17 GM ORAL PRN at bedtime PRN for Constipation, (Reported) Discontinued Reason: Therapy completed Promethazine/Phenyleph/Codeine (Promethazine Vc-Codeine Syrup), 10 ML ORAL Q4H PRN for For Cough, (Reported) Discontinued Reason: Therapy completed Pseudoephedrine Hcl (Sudogest), 30 MG PO BID, (Reported) Discontinued Reason: Therapy completed Ranitidine Hcl (Ranitidine Hcl), 150 MG ORAL BEDTIME, (Reported) Discontinued Reason: Therapy completed Risperidone* (Risperdal*), 0.5 MG ORAL BID, (Reported) Discontinued Reason: Therapy completed Rivaroxaban (Xarelto*), 10 MG ORAL DAILY, (Reported) Discontinued Reason: Therapy completed Solifenacin Succinate (Vesicare*), 10 MG ORAL DAILY, (Reported) Discontinued Reason: Therapy completed Solifenacin Succinate (Vesicare*), 10 MG ORAL DAILY, (Reported) Discontinued Reason: Therapy completed Tramadol Hcl* (Ultram*), 50 MG ORAL Q12HR PRN for For Pain, (Reported) Discontinued Reason: Therapy completed Trimethoprim/Sulfamethoxazole 160/800* (Bactrim Ds Tablet*), 1 TAB ORAL TWICE A DAY, (Reported) Discontinued Reason: Therapy completed Vancomycin/0.9 % Sod Chloride (Vancomycin-0.9% NaCl 1 G/250), 1 GM IV Q12HR, ( Reported) Discontinued Reason: Therapy completed Zolpidem Tartrate* (Ambien*), 5 MG ORAL HSPRN PRN Discontinued Reason: Therapy completed Patient History Healthcare decision maker Resuscitation status Full Code Advanced Directive on File No Review of Systems Constitutional: Reports: no symptoms Eye: Reports: no symptoms ENT: Reports: no symptoms Respiratory: Reports: orthopnea, shortness of breath Cardiovascular: Reports: no symptoms Gastrointestinal: Reports: no symptoms Genitourinary: Reports: no symptoms Musculoskeletal: Reports: no symptoms Skin: Reports: no symptoms Psychiatric: Reports: no symptoms Neurological: Reports: no symptoms Endocrine: Reports: no symptoms Physical Exam General Appearance: no apparent distress, alert Lines, tubes and drains: peripheral HEENT: normocephalic, atraumatic Neck: non-tender, normal alignment Respiratory/Chest: chest wall non-tender, crackles/rales, rhonchi - bilaterally Cardiovascular/Chest: normal peripheral pulses, normal rate, regular rhythm, regularly irregular, no gallop/murmur, no JVD Abdomen: normal bowel sounds, non tender, soft, no organomegaly, no mass Extremities: normal range of motion, non-tender, normal inspection, no calf tenderness, normal capillary refill Neurologic: 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 tub 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 grossly normal, no motor/sensory deficits, abnormal gait , motor weakness, disoriented Last 24 Hour Vital Signs Date Time Temp Pulse Resp B/P (MAP) Pulse Ox O2 Delivery O2 Flow Rate FiO2 03/20/18 09:00 Simple Mask 5.0 03/20/18 08:00 97.4 115 16 160/96 (117) 96 97.4 03/20/18 04:00 96.7 68 22 152/47 (82) 98 96.7 03/20/18 04:00 71 03/20/18 03:35 97.5 70 16 157/53 99 Simple Mask 5.0 97.5 03/20/18 03:30 Simple Mask 5.0 03/20/18 03:03 97.5 70 16 157/53 99 Simple Mask 5.0 97.5 03/20/18 01:18 67 16 145/57 96 Non-Rebreather 10.0 Intake and Output 03/19/18 03/20/18 18:59 06:59 Intake Total 0 ml Balance 0 ml Intake Oral 0 ml # Voids 2 Laboratory Tests Test 03/20/18 02:06 03/20/18 02:50 03/20/18 08:20 White Blood Count 8.6 K/UL (4.8-10.8) Red Blood Count 4.04 M/UL (4.20-5.40) L Hemoglobin 11.9 G/DL (12.0-16.0) L Hematocrit 35.9 % (37.0-47.0) L Mean Corpuscular Volume 89 FL (80-99) Mean Corpuscular Hemoglobin 29.4 PG (27.0-31.0) Mean Corpuscular Hemoglobin Concent 33.1 G/DL (32.0-36.0) Red Cell Distribution Width 14.1 % (11.6-14.8) Platelet Count 149 K/UL (150-450) L Mean Platelet Volume 7.0 FL (6.5-10.1) Neutrophils (%) (Auto) % (45.0-75.0) Lymphocytes (%) (Auto) % (20.0-45.0) Monocytes (%) (Auto) % (1.0-10.0) Eosinophils (%) (Auto) % (0.0-3.0) Basophils (%) (Auto) % (0.0-2.0) Sodium Level 136 MMOL/L (136-145) Potassium Level 5.1 MMOL/L (3.5-5.1) Chloride Level 97 MMOL/L (98-107) L Carbon Dioxide Level 40 MMOL/L (21-32) H Anion Gap -1 mmol/L (5-15) L Blood Urea Nitrogen 10 mg/dL (7-18) Creatinine 0.4 MG/DL (0.55-1.30) L Estimat Glomerular Filtration Rate mL/min (>60) Glucose Level 126 MG/DL (74-106) H Calcium Level 8.5 MG/DL (8.5-10.1) Total Bilirubin 0.6 MG/DL (0.2-1.0) Aspartate Amino Transf (AST/SGOT) 11 U/L (15-37) L Alanine Aminotransferase (ALT/SGPT) 47 U/L (12-78) Alkaline Phosphatase 58 U/L (46-116) Total Creatine Kinase 11 U/L (26-308) L Creatine Kinase MB 1.0 NG/ML (0.0-3.6) Creatine Kinase MB Relative Index 9.0 Troponin I 0.022 ng/mL (0.000-0.056) 0.023 ng/mL (0.000-0.056) Pro-B-Type Natriuretic Peptide 3330 pg/mL (0-125) H Total Protein 5.8 G/DL (6.4-8.2) L Albumin 2.8 G/DL (3.4-5.0) L Globulin 3.0 g/dL Albumin/Globulin Ratio 0.9 (1.0-2.7) L Urine Color Yellow Urine Appearance Clear Urine pH 5 (4.5-8.0) Urine Specific [place] 1.025 (1.005-1.035) Urine Protein 2+ (NEGATIVE) H Urine Glucose (UA) Negative (NEGATIVE) Urine Ketones Negative (NEGATIVE) Urine Blood 2+ (NEGATIVE) H Urine Nitrite Negative (NEGATIVE) Urine Bilirubin Negative (NEGATIVE) Urine Urobilinogen 4 MG/DL (0.0-1.0) H Urine Leukocyte Esterase 1+ (NEGATIVE) H Urine RBC 2-4 /HPF (0 - 2) H Urine WBC 0-2 /HPF (0 - 2) Urine Squamous Epithelial Cells Few /LPF (NONE/OCC) Urine Bacteria Few /HPF (NONE) Height (Feet): 5 Height (Inches): 7.00 Weight (Pounds): 210 Medications Current Medications Medications (Trade) Dose Ordered Sig/Ibrahima Route PRN Reason Start Time Stop Time Status Last Admin Dose Admin Acetaminophen (Tylenol) 650 mg Q4H PRN ORAL Fever 03/20/18 07:15 04/19/18 07:14 Albuterol/ Ipratropium (Albuterol/ Ipratropium) 3 ml Q4H PRN HHN Shortness of Breath 03/20/18 07:15 03/25/18 07:14 Apixaban (Eliquis) 5 mg BID ORAL 03/20/18 09:00 04/19/18 08:59 03/20/18 10:15 Dextrose (Dextrose 50%) 25 ml Q30M PRN IV Hypoglycemia 03/20/18 07:15 04/19/18 07:14 Dextrose (Dextrose 50%) 50 ml Q30M PRN IV Hypoglycemia 03/20/18 07:15 04/19/18 07:14 Diltiazem HCl (Cardizem) 90 mg Q8HR ORAL 03/20/18 14:00 04/19/18 13:59 Furosemide (Lasix) 40 mg EVERY 8 HOURS IV 03/20/18 14:00 04/19/18 13:59 Mirtazapine (Remeron) 15 mg BEDTIME ORAL 03/20/18 21:00 04/19/18 20:59 Ondansetron HCl (Zofran) 4 mg Q6H PRN IVP Nausea & Vomiting 03/20/18 07:15 04/19/18 07:14 Pantoprazole (Protonix) 40 mg BIAC ORAL 03/20/18 09:00 04/19/18 08:59 03/20/18 10:15 Polyethylene Glycol (Miralax) 17 gm DAILYPRN PRN ORAL Constipation 03/20/18 07:15 04/19/18 07:14 Risperidone (RisperDAL) 2 mg BEDTIME ORAL 03/20/18 21:00 04/19/18 20:59 Temazepam (Restoril) 15 mg HSPRN PRN ORAL Insomnia 03/20/18 21:00 03/27/18 20:59 Assessment/Plan Status: stable Assessment/Plan (1) Respiratory failure, acute (2) Pulmonary edema (4) Seizure disorder (5) Major depression (6) Gout (7) Congestive heart failure (8) Cardiomegaly Plan: Avoid sedatives Check BNP Mild diuresis Physical therapy/ambulate Continue cardizem Continue eliquis IV lasix -> Transition to PO in a few days Daily labs and weights Monitor urine output and renal function Telemetry Serial CXR Josue Wakefield MD Mar 20, 2018 12:16
[2018-03-20] MEDS: dilTIAZem HCl 90mg tab ORAL SCH ×2 (14:07→21:13)
[2018-03-20] MEDS ORDERED: dilTIAZem HCl 90mg tab ORAL SCH (15:00)
--- NOTE | 2018-03-20 21:09 | History & Physical ---
History and Physical History & Physicial Yonathan Mendoza MD Mar 20, 2018 21:09
[2018-03-20] MEDS ORDERED: LORazepam 0.5mg tab ORAL PRN (22:00)
--- NOTE | 2018-03-20 22:09 | Consultation ---
History of Present Illness General Chief Complaint: Altered Mental Status Present Illness HPI 77-year-old female with multiple medical problem including CHF on other course.the pt was agitated and yelling . the pt is delusional and endorses depressed mood and anhedonia. insomnia Allergies: Coded Allergies: PIPERACILLIN (Unverified Allergy, Unknown, 03/10/18) TAZOBACTAM (Unverified Allergy, Unknown, 03/10/18) Medication History Scheduled Apixaban (Eliquis), 5 MG ORAL BID Diltiazem HCl (Diltiazem HCl), 90 MG ORAL Q8HR Furosemide* (Lasix*), 40 MG ORAL DAILY, (Reported) Mirtazapine* (Mirtazapine*), 15 MG ORAL BEDTIME Pantoprazole* (Protonix*), 40 MG ORAL EVERY 12 HOURS Risperidone* (Risperdal*), 2 MG ORAL BEDTIME Scheduled PRN Zolpidem Tartrate* (Ambien*), 5 MG ORAL BEDTIME PRN for Insomnia, (Reported) Discontinued Medications Acetaminophen (Acetaminophen), 650 MG ORAL Q4HR PRN for Mild Pain/Temp > 100.5, (Reported) Discontinued Reason: Therapy completed Al Hydroxide/mg Hydroxide (Mag-Al Plus Suspension), 30 ML PO prn Q6hr, (Reported ) Discontinued Reason: Therapy completed Allopurinol* (Allopurinol*), 100 MG ORAL DAILY Discontinued Reason: Therapy completed Apixaban (Eliquis), 5 MG ORAL BID Discontinued Reason: Therapy completed Atorvastatin Calcium* (Lipitor*), 10 MG ORAL BEDTIME Discontinued Reason: Therapy completed Bisacodyl (Bisacodyl), 10 MG RC for Constipation, (Reported) Discontinued Reason: Therapy completed Bisacodyl* (Dulcolax*), 10 MG ORAL PRN daily, (Reported) Discontinued Reason: Therapy completed Bupropion HCl (Wellbutrin), 150 MG ORAL DAILY, (Reported) Discontinued Reason: Therapy completed Cefdinir (Cefdinir), 300 MG PO BID, (Reported) Discontinued Reason: Therapy completed Dextran 70/Hypromellose (Artificial Tears Eye Drops*), 1 DROP BOTH EYES, ( Reported) Discontinued Reason: Therapy completed Diclofenac Sodium (Voltaren), 100 GM TP BID, (Reported) Discontinued Reason: Therapy completed Diltiazem Hcl* (Cardizem*), 60 MG ORAL Q6H Discontinued Reason: Therapy completed Divalproex Sodium* (Depakote*), 250 MG PO Q12HR, (Reported) Discontinued Reason: Therapy completed Divalproex Sodium* (Depakote Er*), 250 MG ORAL EVERY 12 HOURS, (Reported) Discontinued Reason: Therapy completed Docusate Sodium* (Docusate Sodium*), 250 MG ORAL DAILY, (Reported) Discontinued Reason: Therapy completed Hydralazine HCl (Hydralazine HCl), 25 MG PO Q6HR, (Reported) Discontinued Reason: Therapy completed Hydrocodone Bit/Acetaminophen 5-325* ([place] 5-325 Tablet*), 1 TAB ORAL Q6HR PRN for For Pain, (Reported) Discontinued Reason: Therapy completed Ipratropium/Albuterol Sulfate (DuoNeb 0.5-3(2.5)mg/3ml), 3 ML HHN EVERY 6 HOURS PRN for Shortness of Breath, (Reported) Discontinued Reason: Therapy completed Ipratropium/Albuterol Sulfate (DuoNeb 0.5-3(2.5)mg/3ml), 3 ML HHN Q4HRT PRN Discontinued Reason: Therapy completed Lisinopril (Lisinopril*), 5 MG ORAL DAILY, (Reported) Discontinued Reason: Therapy completed Metoprolol Tartrate (Metoprolol Tartrate), 25 MG ORAL Q12HR Discontinued Reason: Therapy completed Mirtazapine* (Mirtazapine*), 15 MG ORAL BEDTIME, (Reported) Discontinued Reason: Therapy completed Multivitamin With Minerals (Multivitamins With Minerals*), 1 TAB ORAL DAILY, ( Reported) Discontinued Reason: Therapy completed Nitrofurantoin Monohyd/M-Cryst* (Macrobid 100 Mg*), 100 MG ORAL EVERY 12 HOURS, (Reported) Discontinued Reason: Therapy completed Nitroglycerin (Nitroglycerin Patch), 1 EACH TD Q6HR, (Reported) Discontinued Reason: Therapy completed [place]-3 Fatty Acids/Fish Oil* (Fish Oil 1,000 Mg Softgel*), 1 CAP ORAL DAILY, ( Reported) Discontinued Reason: Therapy completed Pantoprazole* (Pantoprazole*), 40 MG ORAL DAILY, (Reported) Discontinued Reason: Therapy completed Polyethylene Glycol 3350* (Miralax*), 17 GM ORAL PRN at bedtime PRN for Constipation, (Reported) Discontinued Reason: Therapy completed Promethazine/Phenyleph/Codeine (Promethazine Vc-Codeine Syrup), 10 ML ORAL Q4H PRN for For Cough, (Reported) Discontinued Reason: Therapy completed Pseudoephedrine Hcl (Sudogest), 30 MG PO BID, (Reported) Discontinued Reason: Therapy completed Ranitidine Hcl (Ranitidine Hcl), 150 MG ORAL BEDTIME, (Reported) Discontinued Reason: Therapy completed Risperidone* (Risperdal*), 0.5 MG ORAL BID, (Reported) Discontinued Reason: Therapy completed Rivaroxaban (Xarelto*), 10 MG ORAL DAILY, (Reported) Discontinued Reason: Therapy completed Solifenacin Succinate (Vesicare*), 10 MG ORAL DAILY, (Reported) Discontinued Reason: Therapy completed Solifenacin Succinate (Vesicare*), 10 MG ORAL DAILY, (Reported) Discontinued Reason: Therapy completed Tramadol Hcl* (Ultram*), 50 MG ORAL Q12HR PRN for For Pain, (Reported) Discontinued Reason: Therapy completed Trimethoprim/Sulfamethoxazole 160/800* (Bactrim Ds Tablet*), 1 TAB ORAL TWICE A DAY, (Reported) Discontinued Reason: Therapy completed Vancomycin/0.9 % Sod Chloride (Vancomycin-0.9% NaCl 1 G/250), 1 GM IV Q12HR, ( Reported) Discontinued Reason: Therapy completed Zolpidem Tartrate* (Ambien*), 5 MG ORAL HSPRN PRN Discontinued Reason: Therapy completed Patient History Limited by: medical condition History Provided By: Patient, Medical Record, PMD Healthcare decision maker Resuscitation status Full Code Advanced Directive on File No Past Medical/Surgical History Past Medical/Surgical History: (1) HTN (hypertension) (2) Recurrent falls (3) Atrial flutter (4) CAD (coronary artery disease) (5) Dementia (6) Hyponatremia (7) Constipation (8) Accelerated hypertension (9) Atrial fibrillation with RVR (10) Pulmonary edema (11) Seizure disorder (12) H/O ETOH abuse (13) Acute diastolic CHF (congestive heart failure) (14) UTI (lower urinary tract infection) (15) COPD (chronic obstructive pulmonary disease) (16) Bipolar depression (17) Cerebral vascular disease (18) Hypovolemic shock (19) Hemorrhagic shock (20) Hypokalemia (21) Gout (22) Bacteremia (23) Gastrointestinal bleeding (24) Major depression (25) Sepsis (26) ATN (acute tubular necrosis) (27) Encephalopathy acute (28) Healthcare-associated pneumonia (29) Wheelchair bound (30) Anemia, chronic disease (31) Acute encephalopathy (32) Intractable back pain (33) Incontinence in female (34) Respiratory failure, acute (35) Skin rash (36) Deep vein thrombosis (DVT) of left lower extremity Review of Systems Psychiatric: Reports: prior hx, anxiety, depressed feelings, emotional problems Physical Exam General Appearance: no apparent distress, alert Neurologic: oriented x 3, responsive, depressed affect Last 24 Hour Vital Signs Date Time Temp Pulse Resp B/P (MAP) Pulse Ox O2 Delivery O2 Flow Rate FiO2 03/20/18 21:13 88 100/66 03/20/18 20:20 88 20 Room Air 21 03/20/18 20:00 99.0 67 20 100/66 (77) 95 99.0 03/20/18 15:40 98.6 80 20 130/60 (83) 100 98.6 03/20/18 15:37 118 03/20/18 15:29 81 131/57 03/20/18 14:30 98.6 122 20 142/70 (94) 100 98.6 03/20/18 14:07 122 142/74 03/20/18 12:00 98.6 78 20 128/91 (103) 100 98.6 03/20/18 12:00 77 03/20/18 09:00 Simple Mask 5.0 03/20/18 08:00 97.4 115 16 160/96 (117) 96 97.4 03/20/18 08:00 76 03/20/18 04:00 96.7 68 22 152/47 (82) 98 96.7 03/20/18 04:00 71 03/20/18 03:35 97.5 70 16 157/53 99 Simple Mask 5.0 97.5 03/20/18 03:30 Simple Mask 5.0 03/20/18 03:03 97.5 70 16 157/53 99 Simple Mask 5.0 97.5 03/20/18 01:18 67 16 145/57 96 Non-Rebreather 10.0 Intake and Output 03/19/18 03/20/18 19:00 07:00 Intake Total 0 ml Balance 0 ml Intake Oral 0 ml # Voids 2 Laboratory Tests Test 03/20/18 02:06 03/20/18 02:50 03/20/18 08:20 White Blood Count 8.6 K/UL (4.8-10.8) Red Blood Count 4.04 M/UL (4.20-5.40) L Hemoglobin 11.9 G/DL (12.0-16.0) L Hematocrit 35.9 % (37.0-47.0) L Mean Corpuscular Volume 89 FL (80-99) Mean Corpuscular Hemoglobin 29.4 PG (27.0-31.0) Mean Corpuscular Hemoglobin Concent 33.1 G/DL (32.0-36.0) Red Cell Distribution Width 14.1 % (11.6-14.8) Platelet Count 149 K/UL (150-450) L Mean Platelet Volume 7.0 FL (6.5-10.1) Neutrophils (%) (Auto) % (45.0-75.0) Lymphocytes (%) (Auto) % (20.0-45.0) Monocytes (%) (Auto) % (1.0-10.0) Eosinophils (%) (Auto) % (0.0-3.0) Basophils (%) (Auto) % (0.0-2.0) Sodium Level 136 MMOL/L (136-145) Potassium Level 5.1 MMOL/L (3.5-5.1) Chloride Level 97 MMOL/L (98-107) L Carbon Dioxide Level 40 MMOL/L (21-32) H Anion Gap -1 mmol/L (5-15) L Blood Urea Nitrogen 10 mg/dL (7-18) Creatinine 0.4 MG/DL (0.55-1.30) L Estimat Glomerular Filtration Rate mL/min (>60) Glucose Level 126 MG/DL (74-106) H Calcium Level 8.5 MG/DL (8.5-10.1) Total Bilirubin 0.6 MG/DL (0.2-1.0) Aspartate Amino Transf (AST/SGOT) 11 U/L (15-37) L Alanine Aminotransferase (ALT/SGPT) 47 U/L (12-78) Alkaline Phosphatase 58 U/L (46-116) Total Creatine Kinase 11 U/L (26-308) L Creatine Kinase MB 1.0 NG/ML (0.0-3.6) Creatine Kinase MB Relative Index 9.0 Troponin I 0.022 ng/mL (0.000-0.056) 0.023 ng/mL (0.000-0.056) Pro-B-Type Natriuretic Peptide 3330 pg/mL (0-125) H Total Protein 5.8 G/DL (6.4-8.2) L Albumin 2.8 G/DL (3.4-5.0) L Globulin 3.0 g/dL Albumin/Globulin Ratio 0.9 (1.0-2.7) L Urine Color Yellow Urine Appearance Clear Urine pH 5 (4.5-8.0) Urine Specific [place] 1.025 (1.005-1.035) Urine Protein 2+ (NEGATIVE) H Urine Glucose (UA) Negative (NEGATIVE) Urine Ketones Negative (NEGATIVE) Urine Blood 2+ (NEGATIVE) H Urine Nitrite Negative (NEGATIVE) Urine Bilirubin Negative (NEGATIVE) Urine Urobilinogen 4 MG/DL (0.0-1.0) H Urine Leukocyte Esterase 1+ (NEGATIVE) H Urine RBC 2-4 /HPF (0 - 2) H Urine WBC 0-2 /HPF (0 - 2) Urine Squamous Epithelial Cells Few /LPF (NONE/OCC) Urine Bacteria Few /HPF (NONE) Height (Feet): 5 Height (Inches): 7.00 Weight (Pounds): 210 Medications Current Medications Medications (Trade) Dose Ordered Sig/Ibrahima Route PRN Reason Start Time Stop Time Status Last Admin Dose Admin Acetaminophen (Tylenol) 650 mg Q4H PRN ORAL Fever 03/20/18 07:15 04/19/18 07:14 Albuterol/ Ipratropium (Albuterol/ Ipratropium) 3 ml Q4H PRN HHN Shortness of Breath 03/20/18 07:15 03/25/18 07:14 Apixaban (Eliquis) 5 mg BID ORAL 03/20/18 09:00 04/19/18 08:59 03/20/18 17:26 Dextrose (Dextrose 50%) 25 ml Q30M PRN IV Hypoglycemia 03/20/18 07:15 04/19/18 07:14 Dextrose (Dextrose 50%) 50 ml Q30M PRN IV Hypoglycemia 03/20/18 07:15 04/19/18 07:14 Diltiazem HCl (Cardizem) 90 mg Q8HR ORAL 03/20/18 14:00 04/19/18 13:59 03/20/18 21:13 Furosemide (Lasix) 40 mg EVERY 8 HOURS IV 03/20/18 14:00 04/19/18 13:59 03/20/18 21:13 Mirtazapine (Remeron) 15 mg BEDTIME ORAL 03/20/18 21:00 04/19/18 20:59 03/20/18 21:12 Ondansetron HCl (Zofran) 4 mg Q6H PRN IVP Nausea & Vomiting 03/20/18 07:15 04/19/18 07:14 Pantoprazole (Protonix) 40 mg BIAC ORAL 03/20/18 09:00 04/19/18 08:59 03/20/18 15:58 Polyethylene Glycol (Miralax) 17 gm DAILYPRN PRN ORAL Constipation 03/20/18 07:15 04/19/18 07:14 Risperidone (RisperDAL) 2 mg BEDTIME ORAL 03/20/18 21:00 04/19/18 20:59 03/20/18 21:12 Temazepam (Restoril) 15 mg HSPRN PRN ORAL Insomnia 03/20/18 21:00 03/27/18 20:59 Assessment/Plan Problem List: (1) Dementia ICD Codes: F03.90 - Dementia SNOMED: 46227799 (2) Bipolar depression ICD Codes: F31.30 - Bipolar disorder, current episode depressed, mild or moderate severity, unspecified SNOMED: 61964392 Assessment/Plan risperdal 2mg qhs remeron 15mg qhs ativan prn Luiz Morrison MD Mar 20, 2018 22:09
[2018-03-21] VITALS: BP 128/74
--- NOTE | 2018-03-21 03:00 | History and Physical Report ---
DATE OF ADMISSION: 03/20/2018 CHIEF COMPLAINT: Shortness of breath and altered mental status. HISTORY OF PRESENT ILLNESS: This is a 77-year-old female with past medical history significant for CHF, history of COPD as well as coronary artery disease, hypertension, and morbid obesity who was just recently discharged from [facility] to the nursing facility. The patient presented to the hospital complaining about shortness of breath, hypoxemic. The patient was given Ambien last night for sleep and was found to have altered, unusual, and nonresponsive. Oxygenation was very low and she subsequently was transferred to the hospital due to the hypoxemia and altered mental status. History was limited due to the patient's status. History mostly taken from the ER chart as well as nursing facility documentation. The patient was recently admitted to [facility] from 03/10/2018 through 03/16/2018 and subsequently was transferred to the nursing facility for continued care. PAST MEDICAL HISTORY/PAST SURGICAL HISTORY: Significant for COPD, hypertension, atrial flutter, seizure disorder, schizophrenia, depression, and history of alcohol abuse. MEDICATIONS: Medications at home are significant for Eliquis 5 mg twice a day, diltiazem 90 mg every 8 hours, Lasix 40 mg daily, mirtazapine 15 mg at bedtime, Protonix 40 mg every 12 hours, Risperdal 2 mg at bedtime, and Ambien 5 mg p.o. nightly p.r.n. for insomnia. ALLERGIES: To tazobactam and Zosyn. SOCIAL HISTORY: The patient at this time is a correction resident. No smoking, alcohol, or drugs. FAMILY HISTORY: Noncontributory. REVIEW OF SYSTEMS: Mostly as above. Denies any dysuria or frequency. Denies any hemoptysis or hematochezia. The patient is a poor historian. Mostly history is taken from the ER chart as well as prior admission at the [facility]. PHYSICAL EXAMINATION: VITAL SIGNS: On admission, temperature is afebrile. Pulse of 67, respirations 16, and blood pressure 145/57. GENERAL: The patient is awake, responsive, in no acute distress, however, is on Ventimask. HEAD AND NECK: Pupils are equal and reactive to light. Extraocular movements are intact. Neck was supple. No JVD. LUNGS: Good air entry. No wheezing or rales. Decreased air in the bases. HEART: S1 and S2, irregular distant heart sounds. No murmur was appreciated. ABDOMEN: Soft, nondistended, nontender, and morbidly obese. EXTREMITIES: No cyanosis, clubbing, or edema. SKIN: She has ecchymosis on bilateral upper extremities. NEUROLOGIC: Cranial nerves II through XII are grossly intact. The patient is moving all the extremities spontaneously. Gait was not assessed due to the patient's status. LABORATORY AND DIAGNOSTIC DATA: Laboratory on admission from the ER is significant for WBC of 8.6, hemoglobin 11, hematocrit 35, and platelets 149,000. Sodium 136, potassium 4.1, chloride 97, bicarb 40, BUN 10, creatinine 0.4, and glucose is 126. First troponin 0.022. ProBNP of 3330. Total protein is 5.8. Albumin is 2.8. PT of 11, INR 1.0. PTT of 30. Urinalysis, +2 protein, +2 blood, 2 to 4 RBCs. Chest x-ray was noted to be cardiomegaly with evidence of congestive heart failure. Bilateral left greater than right pleural effusion. ASSESSMENT: 1. Acute respiratory failure. 2. Pulmonary edema. 3. Seizure disorder. 4. Major depression. 5. Gout. 6. Acute congestive heart failure on chronic. 7. Cardiomegaly. 8. Atrial fibrillation. PLAN: Admit the patient to telemetry. We will follow up with the Lasix IV. We will monitor laboratory closely. Discussed case with Dr. Josue Wakefield from Cardiology and Dr. Mendel Sierra from Pulmonary Critical Care. Code status is Full Code. DVT prophylaxis is on Eliquis, and we will follow up with the imaging including duplex of the lower extremity. Yonathan Mendoza M.D. DR: RAQUEL JOB#: [id number] CC:
[2018-03-21 04:00] VITALS: BP 126/67
[2018-03-21] MEDS: dilTIAZem HCl 90mg tab ORAL SCH ×3 (06:51→21:06)
--- NOTE | 2018-03-21 07:02 | Pulmonology Progress Note ---
Assessment/Plan Assessment/Plan ASSESSMENT acute respiratory failure -improving pulmonary edema due to acute diastolic CHF acute on chronic diastolic CHF cardiomegaly bilateral pleural effusion COPD atrial flutter history of CVA seizure disorder bipolar depression PLAN OF CARE telemetry floor diuresis with IV Lasix, monitor volumes and cardio-renal parameters cardio follows transition to oral Lasix in few days serial troponin negative, ECG no acute ischemic changes, r/out for acute LA supplemental O2 to keep pulse oximetry above 92%, downgrade as tolerated pulmonary toilet prn trend pro BNO and fup with CXR on Friday DVT prophylaxis venous duplex BLE negative recent ECHO with preserved EF blood pressure management with CCB heart rate control with CCB continue a/coag with Eliquis monitor HH, remains stable bowel regimen supportive care resume psych meds seizure precautions, not on any anti-epileptic meds case discussed and evaluated by supervising physician Subjective Allergies: Coded Allergies: PIPERACILLIN (Unverified Allergy, Unknown, 03/10/18) TAZOBACTAM (Unverified Allergy, Unknown, 03/10/18) Subjective downgraded to O2 via NC c/o intermittent SOB, no chest pain Objective Last 24 Hour Vital Signs Date Time Temp Pulse Resp B/P (MAP) Pulse Ox O2 Delivery O2 Flow Rate FiO2 03/21/18 06:51 80 126/67 03/21/18 04:00 80 03/21/18 04:00 98.2 81 20 126/67 (86) 95 98.2 03/21/18 00:00 97.6 57 19 128/74 (92) 94 97.6 03/20/18 21:13 88 100/66 03/20/18 21:00 Simple Mask 5.0 03/20/18 20:20 88 20 Room Air 21 03/20/18 20:00 99.0 67 20 100/66 (77) 95 99.0 03/20/18 20:00 71 03/20/18 15:40 98.6 80 20 130/60 (83) 100 98.6 03/20/18 15:37 118 03/20/18 15:29 81 131/57 03/20/18 14:30 98.6 122 20 142/70 (94) 100 98.6 03/20/18 14:07 122 142/74 03/20/18 12:00 98.6 78 20 128/91 (103) 100 98.6 03/20/18 12:00 77 03/20/18 09:00 Simple Mask 5.0 03/20/18 08:00 97.4 115 16 160/96 (117) 96 97.4 03/20/18 08:00 76 Intake and Output 03/20/18 03/21/18 19:00 07:00 Intake Total 360 ml Output Total 400 ml Balance -40 ml Intake Oral 360 ml Output Urine Total 400 ml # Voids 1 General Appearance: no acute distress HEENT: normocephalic, atraumatic Respiratory/Chest: lungs clear - BS clear overall with moderate air exchange , crackles/rales - few isolated crackles at bases , other Cardiovascular: normal rate - Pacing with underlying A flutter, rate controlled Abdomen: soft, non tender, non distended Extremities: no edema, pedal pulses normal Neurologic/Psychiatric: abnormal gait, alert, responsive Musculoskeletal: atrophy - BLE Laboratory Tests 03/20/18 08:20: Troponin I 0.023 Current Medications Medications (Trade) Dose Ordered Sig/Ibrahima Route PRN Reason Start Time Stop Time Status Last Admin Dose Admin Acetaminophen (Tylenol) 650 mg Q4H PRN ORAL Fever 03/20/18 07:15 04/19/18 07:14 Albuterol/ Ipratropium (Albuterol/ Ipratropium) 3 ml Q4H PRN HHN Shortness of Breath 03/20/18 07:15 03/25/18 07:14 Apixaban (Eliquis) 5 mg BID ORAL 03/20/18 09:00 04/19/18 08:59 03/20/18 17:26 Dextrose (Dextrose 50%) 25 ml Q30M PRN IV Hypoglycemia 03/20/18 07:15 04/19/18 07:14 Dextrose (Dextrose 50%) 50 ml Q30M PRN IV Hypoglycemia 03/20/18 07:15 04/19/18 07:14 Diltiazem HCl (Cardizem) 90 mg Q8HR ORAL 03/20/18 14:00 04/19/18 13:59 03/21/18 06:51 Furosemide (Lasix) 40 mg EVERY 8 HOURS IV 03/20/18 14:00 04/19/18 13:59 03/21/18 06:51 Lorazepam (Ativan) 2 mg Q6H PRN ORAL For Anxiety 03/20/18 22:00 03/27/18 21:59 Mirtazapine (Remeron) 15 mg BEDTIME ORAL 03/20/18 21:00 04/19/18 20:59 03/20/18 21:12 Ondansetron HCl (Zofran) 4 mg Q6H PRN IVP Nausea & Vomiting 03/20/18 07:15 04/19/18 07:14 Pantoprazole (Protonix) 40 mg BIAC ORAL 03/20/18 09:00 04/19/18 08:59 03/21/18 06:51 Polyethylene Glycol (Miralax) 17 gm DAILYPRN PRN ORAL Constipation 03/20/18 07:15 04/19/18 07:14 Risperidone (RisperDAL) 2 mg BEDTIME ORAL 03/20/18 21:00 04/19/18 20:59 03/20/18 21:12 Temazepam (Restoril) 15 mg HSPRN PRN ORAL Insomnia 03/20/18 21:00 03/27/18 20:59 Jazzy Campuzano NP Mar 21, 2018 07:02
[2018-03-21 07:45] LABS: BASOPHILS % (AUTO) 1.2 % (0.0-2.0); EOSINOPHILS % (AUTO) 1.8 % (0.0-3.0); HEMATOCRIT 37.9 % (37.0-47.0); HEMOGLOBIN 12.4 G/DL (12.0-16.0); LYMPHOCYTES % (AUTO) 8.4 % (20.0-45.0); MEAN CORPUSCULAR VOLUME 88 FL (80-99); MONOCYTES % (AUTO) 6.5 % (1.0-10.0); NEUTROPHILS % (AUTO) 82.2 % (45.0-75.0); PLATELET COUNT 160 K/UL (150-450); RED BLOOD COUNT 4.31 M/UL (4.20-5.40); RED CELL DISTRIBUTION WIDTH 14.3 % (11.6-14.8); WHITE BLOOD COUNT 9.3 K/UL (4.8-10.8)
[2018-03-21 08:00] VITALS: BP 123/66
[2018-03-21 08:15] LABS: ALBUMIN 2.9 G/DL (3.4-5.0); CHLORIDE 94 MMOL/L (98-107)
[2018-03-21] MEDS: Eliquis 2.5mg tablet ORAL SCH ×2 (08:22→17:22)
[2018-03-21 08:23] LABS: PHOSPHORUS 3.4 MG/DL (2.5-4.9)
[2018-03-21 08:24] LABS: ANION GAP 6 mmol/L (5-15); BLOOD UREA NITROGEN 12 mg/dL (7-18); CALCIUM 8.2 MG/DL (8.5-10.1); CARBON DIOXIDE 37 MMOL/L (21-32); CREATININE 0.5 MG/DL (0.55-1.30); POTASSIUM 4.1 MMOL/L (3.5-5.1); SODIUM 137 MMOL/L (136-145)
--- NOTE | 2018-03-21 09:25 | Diagnostic Imaging Report ---
EXAM: XR Chest, 1 View CLINICAL HISTORY: DYSPNEA TECHNIQUE: Frontal view of the chest. COMPARISON: Chest x-ray 03/20/18 at 140 FINDINGS: Lungs: Slightly improved bilateral interstitial and airspace opacities. Pleural space: Probable left pleural effusion, stable. Maybe a tiny right pleural effusion. No pneumothorax. Heart: Cardiomegaly. Mediastinum: Unremarkable. Bones/joints: Unremarkable. Vasculature: Aortic knob and aortic calcification. IMPRESSION: Slightly improved bilateral interstitial and airspace opacities. Probable pleural effusions are stable.
--- NOTE | 2018-03-21 09:34 | Cardiology Progress Note ---
Assessment/Plan Status: stable Assessment/Plan (1) Respiratory failure, acute (2) Pulmonary edema (4) Seizure disorder (5) Major depression (6) Gout (7) Congestive heart failure (8) Cardiomegaly Plan: Avoid sedatives Check BNP Mild diuresis Physical therapy/ambulate Continue cardizem Continue eliquis IV lasix -> Transition to PO in a few days Daily labs and weights Monitor urine output and renal function Telemetry Serial CXR Subjective Cardiovascular: Reports: no symptoms Respiratory: Reports: no symptoms Gastrointestinal/Abdominal: Reports: no symptoms Genitourinary: Reports: no symptoms Subjective No acute events, vitals stable, HR controlled, urine output 800cc, on room air, no distress, no complaints. Objective Last 24 Hour Vital Signs Date Time Temp Pulse Resp B/P (MAP) Pulse Ox O2 Delivery O2 Flow Rate FiO2 03/21/18 08:00 98.8 67 16 123/66 (85) 92 98.8 03/21/18 06:51 80 126/67 03/21/18 04:00 80 03/21/18 04:00 98.2 81 20 126/67 (86) 95 98.2 03/21/18 00:00 97.6 57 19 128/74 (92) 94 97.6 03/20/18 21:13 88 100/66 03/20/18 21:00 Simple Mask 5.0 03/20/18 20:20 88 20 Room Air 21 03/20/18 20:00 99.0 67 20 100/66 (77) 95 99.0 03/20/18 20:00 71 03/20/18 15:40 98.6 80 20 130/60 (83) 100 98.6 03/20/18 15:37 118 03/20/18 15:29 81 131/57 03/20/18 14:30 98.6 122 20 142/70 (94) 100 98.6 03/20/18 14:07 122 142/74 03/20/18 12:00 98.6 78 20 128/91 (103) 100 98.6 03/20/18 12:00 77 General Appearance: no apparent distress, alert EENT: PERRL/EOMI, normal ENT inspection, TMs normal, pharynx normal Neck: non-tender, normal alignment, supple, normal inspection, no JVD Rhythm: NSR Cardiovascular: normal peripheral pulses, normal rate Respiratory/Chest: chest wall non-tender, no respiratory distress, no accessory muscle use, crackles/rales Abdomen: normal bowel sounds, non tender, soft, no organomegaly Extremities: normal range of motion, non-tender Neurologic: [employer]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 grossly normal, no motor/sensory deficits Intake and Output 03/20/18 03/21/18 19:00 07:00 Intake Total 360 ml 240 ml Output Total 400 ml 400 ml Balance -40 ml -160 ml Intake Oral 360 ml 240 ml Output Urine Total 400 ml 400 ml # Voids 1 # Bowel Movements 1 Laboratory Tests Test 03/21/18 07:20 White Blood Count 9.3 K/UL (4.8-10.8) Red Blood Count 4.31 M/UL (4.20-5.40) Hemoglobin 12.4 G/DL (12.0-16.0) Hematocrit 37.9 % (37.0-47.0) Mean Corpuscular Volume 88 FL (80-99) Mean Corpuscular Hemoglobin 28.7 PG (27.0-31.0) Mean Corpuscular Hemoglobin Concent 32.6 G/DL (32.0-36.0) Red Cell Distribution Width 14.3 % (11.6-14.8) Platelet Count 160 K/UL (150-450) Mean Platelet Volume 6.8 FL (6.5-10.1) Neutrophils (%) (Auto) 82.2 % (45.0-75.0) H Lymphocytes (%) (Auto) 8.4 % (20.0-45.0) L Monocytes (%) (Auto) 6.5 % (1.0-10.0) Eosinophils (%) (Auto) 1.8 % (0.0-3.0) Basophils (%) (Auto) 1.2 % (0.0-2.0) Sodium Level 137 MMOL/L (136-145) Potassium Level 4.1 MMOL/L (3.5-5.1) Chloride Level 94 MMOL/L (98-107) L Carbon Dioxide Level 37 MMOL/L (21-32) H Anion Gap 6 mmol/L (5-15) Blood Urea Nitrogen 12 mg/dL (7-18) Creatinine 0.5 MG/DL (0.55-1.30) L Estimat Glomerular Filtration Rate mL/min (>60) Glucose Level 100 MG/DL (74-106) Calcium Level 8.2 MG/DL (8.5-10.1) L Phosphorus Level 3.4 MG/DL (2.5-4.9) Troponin I 0.008 ng/mL (0.000-0.056) Albumin 2.9 G/DL (3.4-5.0) L Josue Wakefield MD Mar 21, 2018 09:34
[2018-03-21 12:00] VITALS: BP 108/69
--- NOTE | 2018-03-21 15:05 | Cardiac Electrophysiology PN ---
Subjective Subjective EP consult dictated [id number] Objective Last 24 Hour Vital Signs Date Time Temp Pulse Resp B/P (MAP) Pulse Ox O2 Delivery O2 Flow Rate FiO2 03/21/18 13:20 90 108/69 03/21/18 12:00 99.2 90 16 108/69 (82) 98 99.2 03/21/18 09:00 Simple Mask 5.0 03/21/18 08:00 98.8 67 16 123/66 (85) 92 98.8 03/21/18 08:00 71 03/21/18 06:51 80 126/67 03/21/18 04:00 80 03/21/18 04:00 98.2 81 20 126/67 (86) 95 98.2 03/21/18 00:00 97.6 57 19 128/74 (92) 94 97.6 03/20/18 21:13 88 100/66 03/20/18 21:00 Simple Mask 5.0 03/20/18 20:20 88 20 Room Air 21 03/20/18 20:00 99.0 67 20 100/66 (77) 95 99.0 03/20/18 20:00 71 03/20/18 15:40 98.6 80 20 130/60 (83) 100 98.6 03/20/18 15:37 118 03/20/18 15:29 81 131/57 Intake and Output 03/20/18 03/21/18 18:59 06:59 Intake Total 360 ml 240 ml Output Total 400 ml 400 ml Balance -40 ml -160 ml Intake Oral 360 ml 240 ml Output Urine Total 400 ml 400 ml # Voids 1 # Bowel Movements 1 Laboratory Tests Test 03/21/18 07:20 White Blood Count 9.3 K/UL (4.8-10.8) Red Blood Count 4.31 M/UL (4.20-5.40) Hemoglobin 12.4 G/DL (12.0-16.0) Hematocrit 37.9 % (37.0-47.0) Mean Corpuscular Volume 88 FL (80-99) Mean Corpuscular Hemoglobin 28.7 PG (27.0-31.0) Mean Corpuscular Hemoglobin Concent 32.6 G/DL (32.0-36.0) Red Cell Distribution Width 14.3 % (11.6-14.8) Platelet Count 160 K/UL (150-450) Mean Platelet Volume 6.8 FL (6.5-10.1) Neutrophils (%) (Auto) 82.2 % (45.0-75.0) H Lymphocytes (%) (Auto) 8.4 % (20.0-45.0) L Monocytes (%) (Auto) 6.5 % (1.0-10.0) Eosinophils (%) (Auto) 1.8 % (0.0-3.0) Basophils (%) (Auto) 1.2 % (0.0-2.0) Sodium Level 137 MMOL/L (136-145) Potassium Level 4.1 MMOL/L (3.5-5.1) Chloride Level 94 MMOL/L (98-107) L Carbon Dioxide Level 37 MMOL/L (21-32) H Anion Gap 6 mmol/L (5-15) Blood Urea Nitrogen 12 mg/dL (7-18) Creatinine 0.5 MG/DL (0.55-1.30) L Estimat Glomerular Filtration Rate mL/min (>60) Glucose Level 100 MG/DL (74-106) Calcium Level 8.2 MG/DL (8.5-10.1) L Phosphorus Level 3.4 MG/DL (2.5-4.9) Troponin I 0.008 ng/mL (0.000-0.056) Albumin 2.9 G/DL (3.4-5.0) Yohan Islas MD Mar 21, 2018 15:05
--- NOTE | 2018-03-21 15:07 | Internal Med Progress Note ---
Subjective Date of Service: Mar 21, 2018 Physician Name Juan Dutta Attending Physician Yonathan Mendoza MD Current Medications Medications (Trade) Dose Ordered Sig/Ibrahima Route PRN Reason Start Time Stop Time Status Last Admin Dose Admin Acetaminophen (Tylenol) 650 mg Q4H PRN ORAL Fever 03/20/18 07:15 04/19/18 07:14 Albuterol/ Ipratropium (Albuterol/ Ipratropium) 3 ml Q4H PRN HHN Shortness of Breath 03/20/18 07:15 03/25/18 07:14 Apixaban (Eliquis) 5 mg BID ORAL 03/20/18 09:00 04/19/18 08:59 03/21/18 08:22 Dextrose (Dextrose 50%) 25 ml Q30M PRN IV Hypoglycemia 03/20/18 07:15 04/19/18 07:14 Dextrose (Dextrose 50%) 50 ml Q30M PRN IV Hypoglycemia 03/20/18 07:15 04/19/18 07:14 Diltiazem HCl (Cardizem) 90 mg Q8HR ORAL 03/20/18 14:00 04/19/18 13:59 03/21/18 13:20 Furosemide (Lasix) 40 mg EVERY 8 HOURS IV 03/20/18 14:00 04/19/18 13:59 03/21/18 13:20 Lorazepam (Ativan) 2 mg Q6H PRN ORAL For Anxiety 03/20/18 22:00 03/27/18 21:59 Mirtazapine (Remeron) 15 mg BEDTIME ORAL 03/20/18 21:00 04/19/18 20:59 03/20/18 21:12 Ondansetron HCl (Zofran) 4 mg Q6H PRN IVP Nausea & Vomiting 03/20/18 07:15 04/19/18 07:14 Pantoprazole (Protonix) 40 mg BIAC ORAL 03/20/18 09:00 04/19/18 08:59 03/21/18 06:51 Polyethylene Glycol (Miralax) 17 gm DAILYPRN PRN ORAL Constipation 03/20/18 07:15 04/19/18 07:14 Risperidone (RisperDAL) 2 mg BEDTIME ORAL 03/20/18 21:00 04/19/18 20:59 03/20/18 21:12 Temazepam (Restoril) 15 mg HSPRN PRN ORAL Insomnia 03/20/18 21:00 03/27/18 20:59 Allergies: Coded Allergies: PIPERACILLIN (Unverified Allergy, Unknown, 03/10/18) TAZOBACTAM (Unverified Allergy, Unknown, 03/10/18) ROS Limited/Unobtainable: No Constitutional: Reports: no symptoms HEENT: Reports: no symptoms Cardiovascular: Reports: no symptoms Respiratory: Reports: shortness of breath Gastrointestinal/Abdominal: Reports: no symptoms Genitourinary: Reports: no symptoms Neurologic/Psychiatric: Reports: no symptoms Subjective 77 YO F admitted with shortness of breath. Now CHF. Cover for Int Med-Dr Mendoza. Objective Last Vital Signs Date Time Temp Pulse Resp B/P (MAP) Pulse Ox O2 Delivery O2 Flow Rate FiO2 03/21/18 13:20 90 108/69 03/21/18 12:00 99.2 16 98 99.2 03/21/18 09:00 Simple Mask 5.0 03/20/18 20:20 21 General Appearance: WD/WN, no apparent distress, alert EENT: PERRL/EOMI, normal ENT inspection Neck: non-tender, normal alignment, supple, normal inspection Cardiovascular: normal peripheral pulses, normal rate, no gallop/murmur, no JVD , irregularly irregular Respiratory/Chest: crackles/rales, rhonchi - bilaterally, expiratory wheezing Abdomen: normal bowel sounds, non tender, soft, no organomegaly, no mass Extremities: normal range of motion Neurologic: nurse plastics II-XII grossly normal, no motor/sensory deficits Laboratory Tests Test 03/21/18 07:20 White Blood Count 9.3 K/UL (4.8-10.8) Red Blood Count 4.31 M/UL (4.20-5.40) Hemoglobin 12.4 G/DL (12.0-16.0) Hematocrit 37.9 % (37.0-47.0) Mean Corpuscular Volume 88 FL (80-99) Mean Corpuscular Hemoglobin 28.7 PG (27.0-31.0) Mean Corpuscular Hemoglobin Concent 32.6 G/DL (32.0-36.0) Red Cell Distribution Width 14.3 % (11.6-14.8) Platelet Count 160 K/UL (150-450) Mean Platelet Volume 6.8 FL (6.5-10.1) Neutrophils (%) (Auto) 82.2 % (45.0-75.0) H Lymphocytes (%) (Auto) 8.4 % (20.0-45.0) L Monocytes (%) (Auto) 6.5 % (1.0-10.0) Eosinophils (%) (Auto) 1.8 % (0.0-3.0) Basophils (%) (Auto) 1.2 % (0.0-2.0) Sodium Level 137 MMOL/L (136-145) Potassium Level 4.1 MMOL/L (3.5-5.1) Chloride Level 94 MMOL/L (98-107) L Carbon Dioxide Level 37 MMOL/L (21-32) H Anion Gap 6 mmol/L (5-15) Blood Urea Nitrogen 12 mg/dL (7-18) Creatinine 0.5 MG/DL (0.55-1.30) L Estimat Glomerular Filtration Rate mL/min (>60) Glucose Level 100 MG/DL (74-106) Calcium Level 8.2 MG/DL (8.5-10.1) L Phosphorus Level 3.4 MG/DL (2.5-4.9) Troponin I 0.008 ng/mL (0.000-0.056) Albumin 2.9 G/DL (3.4-5.0) L Intake and Output 03/20/18 03/21/18 18:59 06:59 Intake Total 360 ml 240 ml Output Total 400 ml 400 ml Balance -40 ml -160 ml Intake Oral 360 ml 240 ml Output Urine Total 400 ml 400 ml # Voids 1 # Bowel Movements 1 Assessment/Plan Problem List: (1) Schizophrenia (2) CHF (congestive heart failure) Assessment & Plan: BNP > 3000. See cardiology note. Continue lasix. Await echocardiogram. EP cardiology consult-Dr Milian (3) Hypoxia (4) Dyspnea Assessment & Plan: Due to CHF (5) COPD (chronic obstructive pulmonary disease) (6) HTN (hypertension) Assessment & Plan: Continue cardizem (7) Atrial flutter Assessment & Plan: See cardiology note. (8) Seizure disorder (9) Major depression (10) H/O ETOH abuse Status: not improved Juan Dutta MD Mar 21, 2018 15:07
[2018-03-21 16:00] VITALS: BP 137/66
--- NOTE | 2018-03-21 19:30 | Consultation ---
DATE OF CONSULTATION: 03/21/2018 CARDIAC ELECTROPHYSIOLOGY CONSULTATION CONSULTING PHYSICIAN: Yohan Milian M.D. REFERRING PHYSICIAN: Yonathan Mendoza M.D. ADDITIONAL REFERRING PHYSICIAN: Juan Dutta AM.D. REASON FOR CONSULTATION: Management of atrial fibrillation and atrial flutter. HISTORY OF PRESENT ILLNESS: The patient is a 77-year-old lady with history of hypertension, coronary artery disease, congestive heart failure, morbid obesity, and COPD was recently discharged from [facility] to nursing facility. The patient also has paroxysmal atrial flutter and is on anticoagulation. The patient was found to be altered and unresponsive and low oxygen saturation. The patient was then transferred to [facility] for further evaluation. The patient had episodes of atrial flutter with rapid ventricular response to 150s, placed on telemetry recording and cardiac electrophysiology consultation was obtained for further evaluation and management. REVIEW OF SYSTEMS: Review of systems was negative other than what was mentioned in the history of present illness. PAST MEDICAL HISTORY: 1. Hypertension. 2. Atrial fibrillation and atrial flutter. 3. Schizophrenia and depression. 4. Seizure disorder. 5. COPD. 6. Alcohol use. MEDICATIONS: Include Eliquis 5 b.i.d., Cardizem 90 every 8 hours, Lasix 20 mg daily, Protonix, Risperdal, and Ambien. ALLERGIES: She is allergic to Zosyn and tazobactam. SOCIAL HISTORY: She is a alf resident. Does not smoke or drink alcohol. PHYSICAL EXAMINATION: VITAL SIGNS: Show blood pressure of 108/69, pulse is 90, respirations 18, and she has had temperature 99.2. HEAD AND NECK: Showed no JVD. LUNGS: Clear. CARDIOVASCULAR: Shows irregular S1 and S2 with no gallop or murmur. ABDOMEN: Soft. EXTREMITIES: No pitting edema. LABORATORY DATA: Her labs show white count 9.2, hemoglobin , hematocrit 37.9, platelet count 160. Sodium 137, potassium 4.1, BUN of 12, creatinine 0.5. Troponin negative x3. BNP is 3330. ASSESSMENT AND PLAN: 1. Atrial flutter with rapid ventricular response. The patient is in and out of atrial flutter. Currently on Cardizem 90 mg every 8 hours and apixaban 5 mg. We will start the patient on amiodarone 400 mg daily to suppress the atrial fibrillation episodes. 2. Congestive heart failure. The patient is on Lasix 40 mg every 8 hours. Further evaluation by Dr. Wakefield. The patient is also on Cardizem. 3. Hypertension on Cardizem and Lasix. 4. Psychosis and schizophrenia on Risperdal. Thank you very much for allowing me to participate in the care of this patient. Please do not hesitate to contact me for any questions regarding my evaluation. Yohan Milian M.D. DR: PO JOB#: [id number] CC:
[2018-03-21 20:00] VITALS: BP 139/67
[2018-03-21] MEDS: Amiodarone 200mg tab ORAL SCH (21:05)
[2018-03-22] VITALS (7 sets, daily range): BP systolic 105–145; BP diastolic 54–77
[2018-03-22] MEDS: dilTIAZem HCl 90mg tab ORAL SCH (06:10)
[2018-03-22 06:30] LABS: BASOPHILS % (AUTO) 0.5 % (0.0-2.0); EOSINOPHILS % (AUTO) 1.5 % (0.0-3.0); HEMATOCRIT 36.4 % (37.0-47.0); HEMOGLOBIN 11.9 G/DL (12.0-16.0); LYMPHOCYTES % (AUTO) 8.9 % (20.0-45.0); MEAN CORPUSCULAR VOLUME 89 FL (80-99); MONOCYTES % (AUTO) 6.4 % (1.0-10.0); NEUTROPHILS % (AUTO) 82.7 % (45.0-75.0); PLATELET COUNT 159 K/UL (150-450); RED BLOOD COUNT 4.09 M/UL (4.20-5.40); RED CELL DISTRIBUTION WIDTH 14.4 % (11.6-14.8)
--- NOTE | 2018-03-22 07:32 | Pulmonology Progress Note ---
Assessment/Plan Assessment/Plan ASSESSMENT acute respiratory failure -improving pulmonary edema due to acute diastolic CHF acute on chronic diastolic CHF A fib/flutter with RVR-resolved cardiomegaly bilateral pleural effusion COPD history of CVA seizure disorder bipolar depression PLAN OF CARE telemetry floor diuresis with IV Lasix, monitor volumes and cardio-renal parameters , replace K today cardio follows transition to oral Lasix in few days - serial troponin negative, ECG no acute ischemic changes, r/out for acute IA supplemental O2 to keep pulse oximetry above 92%, downgrade as tolerated pulmonary toilet prn trend pro BNP and fup with CXR on Friday in am DVT prophylaxis venous duplex BLE negative recent ECHO with preserved EF blood pressure management with CCB heart rate control with CCB Amiodarone added by cardiac newspaper manager , HR stable continue a/coag with Eliquis monitor HH, remains stable bowel regimen supportive care resume psych meds seizure precautions, not on any anti-epileptic meds case discussed and evaluated by supervising physician Subjective Allergies: Coded Allergies: PIPERACILLIN (Unverified Allergy, Unknown, 03/10/18) TAZOBACTAM (Unverified Allergy, Unknown, 03/10/18) Subjective ojn RA, pulse ox stable c/o intermittent SOB, no chest pain HR stable Objective Last 24 Hour Vital Signs Date Time Temp Pulse Resp B/P (MAP) Pulse Ox O2 Delivery O2 Flow Rate FiO2 03/22/18 07:27 73 16 Room Air 21 03/22/18 06:10 69 120/56 03/22/18 04:00 97.2 82 20 133/55 (81) 99 97.2 03/22/18 04:00 64 03/22/18 00:00 68 03/22/18 00:00 97.4 77 24 124/60 (81) 96 97.4 03/21/18 21:06 64 139/67 03/21/18 21:00 Simple Mask 5.0 03/21/18 20:23 64 16 Room Air 21 03/21/18 20:00 99.0 83 26 139/67 (91) 98 99.0 03/21/18 20:00 79 03/21/18 16:00 99.1 102 20 137/66 (89) 98 99.1 03/21/18 16:00 78 03/21/18 13:20 90 108/69 03/21/18 12:00 99.2 90 16 108/69 (82) 98 99.2 03/21/18 12:00 80 03/21/18 09:01 Simple Mask 5.0 03/21/18 09:00 Simple Mask 5.0 03/21/18 08:28 71 16 Room Air 21 03/21/18 08:00 98.8 67 16 123/66 (85) 92 98.8 03/21/18 08:00 71 Intake and Output 03/21/18 03/22/18 19:00 07:00 Intake Total 480 ml 300 ml Balance 480 ml 300 ml Intake Oral 480 ml 300 ml # Voids 2 3 # Bowel Movements 1 2 Objective General Appearance: no acute distress HEENT: normocephalic, atraumatic Respiratory/Chest: BS clear overall with moderate air exchange , few isolated crackles at bases , Cardiovascular: pacing with underlying A flutter, rate controlled Abdomen: soft, non tender, non distended Extremities: no edema, pedal pulses normal Neurologic/Psychiatric: abnormal gait, alert, responsive Musculoskeletal: atrophy - BLE Laboratory Tests 03/22/18 05:40: White Blood Count 9.0, Red Blood Count 4.09L, Hemoglobin 11.9L, Hematocrit 36.4L , Mean Corpuscular Volume 89, Mean Corpuscular Hemoglobin 29.1, Mean Corpuscular Hemoglobin Concent 32.7, Red Cell Distribution Width 14.4, Platelet Count 159, Mean Platelet Volume 6.6, Neutrophils (%) (Auto) 82.7H, Lymphocytes ( %) (Auto) 8.9L, Monocytes (%) (Auto) 6.4, Eosinophils (%) (Auto) 1.5, Basophils (%) (Auto) 0.5, Sodium Level [Pending], Potassium Level [Pending], Chloride Level [Pending], Carbon Dioxide Level [Pending], Blood Urea Nitrogen [Pending], Creatinine [Pending], Estimat Glomerular Filtration Rate [Pending], Glucose Level [Pending], Calcium Level [Pending], Troponin I [Pending] Current Medications Medications (Trade) Dose Ordered Sig/Ibrahima Route PRN Reason Start Time Stop Time Status Last Admin Dose Admin Acetaminophen (Tylenol) 650 mg Q4H PRN ORAL Fever 03/20/18 07:15 04/19/18 07:14 Albuterol/ Ipratropium (Albuterol/ Ipratropium) 3 ml Q4H PRN HHN Shortness of Breath 03/20/18 07:15 03/25/18 07:14 Amiodarone HCl (Cordarone) 200 mg EVERY 12 HOURS ORAL 03/21/18 21:00 04/20/18 20:59 03/21/18 21:05 Apixaban (Eliquis) 5 mg BID ORAL 03/20/18 09:00 04/19/18 08:59 03/21/18 17:22 Dextrose (Dextrose 50%) 25 ml Q30M PRN IV Hypoglycemia 03/20/18 07:15 04/19/18 07:14 Dextrose (Dextrose 50%) 50 ml Q30M PRN IV Hypoglycemia 03/20/18 07:15 04/19/18 07:14 Diltiazem HCl (Cardizem) 90 mg Q8HR ORAL 03/20/18 14:00 04/19/18 13:59 03/22/18 06:10 Furosemide (Lasix) 40 mg EVERY 8 HOURS IV 03/20/18 14:00 04/19/18 13:59 03/22/18 06:10 Lorazepam (Ativan) 2 mg Q6H PRN ORAL For Anxiety 03/20/18 22:00 03/27/18 21:59 Mirtazapine (Remeron) 15 mg BEDTIME ORAL 03/20/18 21:00 04/19/18 20:59 03/21/18 21:05 Ondansetron HCl (Zofran) 4 mg Q6H PRN IVP Nausea & Vomiting 03/20/18 07:15 04/19/18 07:14 Pantoprazole (Protonix) 40 mg BIAC ORAL 03/20/18 09:00 04/19/18 08:59 03/22/18 06:10 Polyethylene Glycol (Miralax) 17 gm DAILYPRN PRN ORAL Constipation 03/20/18 07:15 04/19/18 07:14 Risperidone (RisperDAL) 2 mg BEDTIME ORAL 03/20/18 21:00 04/19/18 20:59 03/21/18 21:06 Temazepam (Restoril) 15 mg HSPRN PRN ORAL Insomnia 03/20/18 21:00 03/27/18 20:59 Jazzy Campuzano NP Mar 22, 2018 07:32
[2018-03-22 07:41] LABS: BLOOD UREA NITROGEN 17 mg/dL (7-18); CALCIUM 8.4 MG/DL (8.5-10.1); CHLORIDE 96 MMOL/L (98-107); CREATININE 0.8 MG/DL (0.55-1.30); POTASSIUM 3.4 MMOL/L (3.5-5.1); SODIUM 142 MMOL/L (136-145)
[2018-03-22 07:47] LABS: CARBON DIOXIDE > 45 MMOL/L (21-32)
[2018-03-22] MEDS: Amiodarone 200mg tab ORAL SCH (09:13)
[2018-03-22] MEDS: Eliquis 2.5mg tablet ORAL SCH (09:13)
--- NOTE | 2018-03-22 10:22 | Cardiology Progress Note ---
Assessment/Plan Status: stable Assessment/Plan (1) Respiratory failure, acute (2) Pulmonary edema (4) Seizure disorder (5) Major depression (6) Gout (7) Congestive heart failure (8) Cardiomegaly Plan: Avoid sedatives Check BNP Mild diuresis -> Transitioned to PO lasix 40 BID Physical therapy/ambulate Continue cardizem Continue eliquis Continue amiodarone per Electrophysiology -Dr. Milian Daily labs and weights Monitor urine output and renal function Serial CXR Transition to floor Subjective Cardiovascular: Reports: no symptoms Respiratory: Reports: no symptoms Gastrointestinal/Abdominal: Reports: no symptoms Genitourinary: Reports: no symptoms Subjective No acute events, vitals stable, HR controlled, urine output 800cc, on room air, no distress, no complaints. Amidarone started for AFIB Objective Last 24 Hour Vital Signs Date Time Temp Pulse Resp B/P (MAP) Pulse Ox O2 Delivery O2 Flow Rate FiO2 03/22/18 09:18 Simple Mask 5.0 03/22/18 08:00 97.7 62 18 123/54 (77) 99 97.7 03/22/18 07:27 73 16 Room Air 21 03/22/18 06:10 69 120/56 03/22/18 04:00 97.2 82 20 133/55 (81) 99 97.2 03/22/18 04:00 64 03/22/18 00:00 68 03/22/18 00:00 97.4 77 24 124/60 (81) 96 97.4 03/21/18 21:06 64 139/67 03/21/18 21:00 Simple Mask 5.0 03/21/18 20:23 64 16 Room Air 21 03/21/18 20:00 99.0 83 26 139/67 (91) 98 99.0 03/21/18 20:00 79 03/21/18 16:00 99.1 102 20 137/66 (89) 98 99.1 03/21/18 16:00 78 03/21/18 13:20 90 108/69 03/21/18 12:00 99.2 90 16 108/69 (82) 98 99.2 03/21/18 12:00 80 General Appearance: no apparent distress, alert EENT: PERRL/EOMI Neck: non-tender, normal alignment, supple Rhythm: NSR Cardiovascular: normal peripheral pulses, normal rate, regular rhythm Respiratory/Chest: chest wall non-tender, lungs clear Abdomen: normal bowel sounds, non tender Extremities: normal range of motion, non-tender Neurologic: manager financial II-XII grossly normal, no motor/sensory deficits Intake and Output 03/21/18 03/22/18 19:00 07:00 Intake Total 480 ml 300 ml Balance 480 ml 300 ml Intake Oral 480 ml 300 ml # Voids 2 3 # Bowel Movements 1 2 Laboratory Tests Test 03/22/18 05:40 White Blood Count 9.0 K/UL (4.8-10.8) Red Blood Count 4.09 M/UL (4.20-5.40) L Hemoglobin 11.9 G/DL (12.0-16.0) L Hematocrit 36.4 % (37.0-47.0) L Mean Corpuscular Volume 89 FL (80-99) Mean Corpuscular Hemoglobin 29.1 PG (27.0-31.0) Mean Corpuscular Hemoglobin Concent 32.7 G/DL (32.0-36.0) Red Cell Distribution Width 14.4 % (11.6-14.8) Platelet Count 159 K/UL (150-450) Mean Platelet Volume 6.6 FL (6.5-10.1) Neutrophils (%) (Auto) 82.7 % (45.0-75.0) H Lymphocytes (%) (Auto) 8.9 % (20.0-45.0) L Monocytes (%) (Auto) 6.4 % (1.0-10.0) Eosinophils (%) (Auto) 1.5 % (0.0-3.0) Basophils (%) (Auto) 0.5 % (0.0-2.0) Sodium Level 142 MMOL/L (136-145) Potassium Level 3.4 MMOL/L (3.5-5.1) L Chloride Level 96 MMOL/L (98-107) L Carbon Dioxide Level > 45 MMOL/L (21-32) *H Blood Urea Nitrogen 17 mg/dL (7-18) Creatinine 0.8 MG/DL (0.55-1.30) # Estimat Glomerular Filtration Rate mL/min (>60) Glucose Level 108 MG/DL (74-106) H Calcium Level 8.4 MG/DL (8.5-10.1) L Troponin I 0.016 ng/mL (0.000-0.056) Thyroid Stimulating Hormone (TSH) 1.551 uiU/mL (0.358-3.740) Josue Wakefield MD Mar 22, 2018 10:22
--- NOTE | 2018-03-22 15:18 | Internal Med Progress Note ---
Subjective Date of Service: Mar 22, 2018 Physician Name LuzmariaJuan Attending Physician Yonathan Mendoza MD Current Medications Medications (Trade) Dose Ordered Sig/Ibrahima Route PRN Reason Start Time Stop Time Status Last Admin Dose Admin Acetaminophen (Tylenol) 650 mg Q4H PRN ORAL Fever 03/20/18 07:15 04/19/18 07:14 Albuterol/ Ipratropium (Albuterol/ Ipratropium) 3 ml Q4H PRN HHN Shortness of Breath 03/20/18 07:15 03/25/18 07:14 Dextrose (Dextrose 50%) 25 ml Q30M PRN IV Hypoglycemia 03/20/18 07:15 04/19/18 07:14 Dextrose (Dextrose 50%) 50 ml Q30M PRN IV Hypoglycemia 03/20/18 07:15 04/19/18 07:14 Furosemide (Lasix) 40 mg EVERY 12 HOURS IV 03/22/18 21:00 04/21/18 20:59 Lorazepam (Ativan) 2 mg Q6H PRN ORAL For Anxiety 03/20/18 22:00 03/27/18 21:59 Mirtazapine (Remeron) 15 mg BEDTIME ORAL 03/20/18 21:00 04/19/18 20:59 03/21/18 21:05 Ondansetron HCl (Zofran) 4 mg Q6H PRN IVP Nausea & Vomiting 03/20/18 07:15 04/19/18 07:14 Pantoprazole (Protonix) 40 mg BIAC ORAL 03/20/18 09:00 04/19/18 08:59 03/22/18 06:10 Polyethylene Glycol (Miralax) 17 gm DAILYPRN PRN ORAL Constipation 03/20/18 07:15 04/19/18 07:14 Risperidone (RisperDAL) 2 mg BEDTIME ORAL 03/20/18 21:00 04/19/18 20:59 03/21/18 21:06 Temazepam (Restoril) 15 mg HSPRN PRN ORAL Insomnia 03/20/18 21:00 03/27/18 20:59 Allergies: Coded Allergies: PIPERACILLIN (Unverified Allergy, Unknown, 03/10/18) TAZOBACTAM (Unverified Allergy, Unknown, 03/10/18) ROS Limited/Unobtainable: Yes Subjective 77 YO F admitted with shortness of breath. Now CHF. Cover for Int Med-Dr Mendoza. Objective Last Vital Signs Date Time Temp Pulse Resp B/P (MAP) Pulse Ox O2 Delivery O2 Flow Rate FiO2 03/22/18 12:00 98.2 82 19 145/64 (91) 94 98.2 03/22/18 09:18 Simple Mask 5.0 03/22/18 07:27 21 Laboratory Tests Test 03/22/18 05:40 White Blood Count 9.0 K/UL (4.8-10.8) Red Blood Count 4.09 M/UL (4.20-5.40) L Hemoglobin 11.9 G/DL (12.0-16.0) L Hematocrit 36.4 % (37.0-47.0) L Mean Corpuscular Volume 89 FL (80-99) Mean Corpuscular Hemoglobin 29.1 PG (27.0-31.0) Mean Corpuscular Hemoglobin Concent 32.7 G/DL (32.0-36.0) Red Cell Distribution Width 14.4 % (11.6-14.8) Platelet Count 159 K/UL (150-450) Mean Platelet Volume 6.6 FL (6.5-10.1) Neutrophils (%) (Auto) 82.7 % (45.0-75.0) H Lymphocytes (%) (Auto) 8.9 % (20.0-45.0) L Monocytes (%) (Auto) 6.4 % (1.0-10.0) Eosinophils (%) (Auto) 1.5 % (0.0-3.0) Basophils (%) (Auto) 0.5 % (0.0-2.0) Sodium Level 142 MMOL/L (136-145) Potassium Level 3.4 MMOL/L (3.5-5.1) L Chloride Level 96 MMOL/L (98-107) L Carbon Dioxide Level > 45 MMOL/L (21-32) *H Blood Urea Nitrogen 17 mg/dL (7-18) Creatinine 0.8 MG/DL (0.55-1.30) # Estimat Glomerular Filtration Rate mL/min (>60) Glucose Level 108 MG/DL (74-106) H Calcium Level 8.4 MG/DL (8.5-10.1) L Troponin I 0.016 ng/mL (0.000-0.056) Thyroid Stimulating Hormone (TSH) 1.551 uiU/mL (0.358-3.740) Intake and Output 03/21/18 03/22/18 19:00 07:00 Intake Total 480 ml 300 ml Balance 480 ml 300 ml Intake Oral 480 ml 300 ml # Voids 2 3 # Bowel Movements 1 2 Objective General Appearance: WD/WN, no apparent distress, alert EENT: PERRL/EOMI, normal ENT inspection Neck: non-tender, normal alignment, supple, normal inspection Cardiovascular: normal peripheral pulses, normal rate, no gallop/murmur, no JVD , irregularly irregular Respiratory/Chest: crackles/rales, rhonchi - bilaterally, expiratory wheezing Abdomen: normal bowel sounds, non tender, soft, no organomegaly, no mass Extremities: normal range of motion Neurologic: machine carton marker II-XII grossly normal, no motor/sensory deficits Assessment/Plan Problem List: (1) Schizophrenia (2) CHF (congestive heart failure) Assessment & Plan: BNP > 3000. See cardiology note. Continue lasix. Await echocardiogram. EP cardiology consult-Dr Milian (3) Hypoxia (4) Dyspnea Assessment & Plan: Due to CHF (5) COPD (chronic obstructive pulmonary disease) (6) HTN (hypertension) Assessment & Plan: Continue cardizem (7) Atrial flutter Assessment & Plan: See cardiology note. (8) Seizure disorder (9) Major depression (10) H/O ETOH abuse Status: Juan Maciel MD Mar 22, 2018 15:18
[2018-03-22] MEDS ORDERED: Albuterol/Ipratropium 3ml neb HHN PRN (16:06)
[2018-03-22] MEDS ORDERED: Miralax 17gm pkt ORAL PRN (16:07)
[2018-03-22] MEDS ORDERED: LORazepam 1mg tab ORAL PRN (16:07)
--- NOTE | 2018-03-22 18:45 | Cardiac Electrophysiology PN ---
Assessment/Plan Assessment/Plan 1. Atrial flutter with rapid ventricular response. The patient is in and out of atrial flutter. Continue Cardizem 90 mg every 8 hours and apixaban 5 mg and amiodarone 400 mg daily 2. Congestive heart failure. On Lasix 40 mg iv bid hours. Further evaluation by Dr. Wakefield. 3. Hypertension on Cardizem and Lasix. 4. Psychosis and schizophrenia on Risperdal. DW RN Subjective Subjective Was in and out of atrial flutter with RVR up to 120s. No CP or SOB. Objective Last 24 Hour Vital Signs Date Time Temp Pulse Resp B/P (MAP) Pulse Ox O2 Delivery O2 Flow Rate FiO2 03/22/18 16:10 97.9 63 19 141/77 (98) 99 97.9 03/22/18 12:00 98.2 82 19 145/64 (91) 94 98.2 03/22/18 09:18 Simple Mask 5.0 03/22/18 08:00 71 03/22/18 08:00 97.7 62 18 123/54 (77) 99 97.7 03/22/18 07:27 73 16 Room Air 21 03/22/18 06:10 69 120/56 03/22/18 04:00 97.2 82 20 133/55 (81) 99 97.2 03/22/18 04:00 64 03/22/18 00:00 68 03/22/18 00:00 97.4 77 24 124/60 (81) 96 97.4 03/21/18 21:06 64 139/67 03/21/18 21:00 Simple Mask 5.0 03/21/18 20:23 64 16 Room Air 21 03/21/18 20:00 99.0 83 26 139/67 (91) 98 99.0 03/21/18 20:00 79 Intake and Output 03/21/18 03/22/18 19:00 07:00 Intake Total 480 ml 300 ml Balance 480 ml 300 ml Intake Oral 480 ml 300 ml # Voids 2 3 # Bowel Movements 1 2 Laboratory Tests Test 03/22/18 05:40 White Blood Count 9.0 K/UL (4.8-10.8) Red Blood Count 4.09 M/UL (4.20-5.40) L Hemoglobin 11.9 G/DL (12.0-16.0) L Hematocrit 36.4 % (37.0-47.0) L Mean Corpuscular Volume 89 FL (80-99) Mean Corpuscular Hemoglobin 29.1 PG (27.0-31.0) Mean Corpuscular Hemoglobin Concent 32.7 G/DL (32.0-36.0) Red Cell Distribution Width 14.4 % (11.6-14.8) Platelet Count 159 K/UL (150-450) Mean Platelet Volume 6.6 FL (6.5-10.1) Neutrophils (%) (Auto) 82.7 % (45.0-75.0) H Lymphocytes (%) (Auto) 8.9 % (20.0-45.0) L Monocytes (%) (Auto) 6.4 % (1.0-10.0) Eosinophils (%) (Auto) 1.5 % (0.0-3.0) Basophils (%) (Auto) 0.5 % (0.0-2.0) Sodium Level 142 MMOL/L (136-145) Potassium Level 3.4 MMOL/L (3.5-5.1) L Chloride Level 96 MMOL/L (98-107) L Carbon Dioxide Level > 45 MMOL/L (21-32) *H Blood Urea Nitrogen 17 mg/dL (7-18) Creatinine 0.8 MG/DL (0.55-1.30) # Estimat Glomerular Filtration Rate mL/min (>60) Glucose Level 108 MG/DL (74-106) H Calcium Level 8.4 MG/DL (8.5-10.1) L Troponin I 0.016 ng/mL (0.000-0.056) Thyroid Stimulating Hormone (TSH) 1.551 uiU/mL (0.358-3.740) Objective HEAD AND NECK: Showed no JVD. LUNGS: Clear. CARDIOVASCULAR: Shows irregular S1 and S2 with no gallop or murmur. ABDOMEN: Soft. EXTREMITIES: No pitting edema. Yohan Milian MD Mar 22, 2018 18:45
[2018-03-22] MEDS ORDERED: Eliquis 2.5mg tablet ORAL SCH (21:00)
[2018-03-22] MEDS ORDERED: Amiodarone 200mg tab ORAL SCH (21:00)
--- NOTE | 2018-03-22 21:35 | General Progress Note ---
Assessment/Plan Problem List: (1) Dementia ICD Codes: F03.90 - Dementia SNOMED: 15879341 (2) Bipolar depression ICD Codes: F31.30 - Bipolar disorder, current episode depressed, mild or moderate severity, unspecified SNOMED: 92873297 Status: stable Assessment/Plan risperdal 2mg qhs remeron 15mg qhs ativan prn Subjective Date patient seen: Mar 21, 2018 Neurologic/Psychiatric: Reports: anxiety, depressed Allergies: Coded Allergies: PIPERACILLIN (Unverified Allergy, Unknown, 03/10/18) TAZOBACTAM (Unverified Allergy, Unknown, 03/10/18) Objective Last 24 Hour Vital Signs Date Time Temp Pulse Resp B/P (MAP) Pulse Ox O2 Delivery O2 Flow Rate FiO2 03/22/18 20:41 Simple Mask 3.0 03/22/18 20:03 65 18 Room Air 21 03/22/18 20:00 98.9 72 18 136/67 (90) 96 98.9 03/22/18 16:10 97.9 63 19 141/77 (98) 99 97.9 03/22/18 12:00 98.2 82 19 145/64 (91) 94 98.2 03/22/18 09:18 Simple Mask 5.0 03/22/18 08:00 71 03/22/18 08:00 97.7 62 18 123/54 (77) 99 97.7 03/22/18 07:27 73 16 Room Air 21 03/22/18 06:10 69 120/56 03/22/18 04:00 97.2 82 20 133/55 (81) 99 97.2 03/22/18 04:00 64 03/22/18 00:00 68 03/22/18 00:00 97.4 77 24 124/60 (81) 96 97.4 Intake and Output 03/21/18 03/22/18 18:59 06:59 Intake Total 480 ml 300 ml Balance 480 ml 300 ml Intake Oral 480 ml 300 ml # Voids 2 3 # Bowel Movements 1 2 Laboratory Tests 03/22/18 05:40: White Blood Count 9.0, Red Blood Count 4.09L, Hemoglobin 11.9L, Hematocrit 36.4L , Mean Corpuscular Volume 89, Mean Corpuscular Hemoglobin 29.1, Mean Corpuscular Hemoglobin Concent 32.7, Red Cell Distribution Width 14.4, Platelet Count 159, Mean Platelet Volume 6.6, Neutrophils (%) (Auto) 82.7H, Lymphocytes ( %) (Auto) 8.9L, Monocytes (%) (Auto) 6.4, Eosinophils (%) (Auto) 1.5, Basophils (%) (Auto) 0.5, Sodium Level 142, Potassium Level 3.4L, Chloride Level 96L, Carbon Dioxide Level > 45*H, Blood Urea Nitrogen 17, Creatinine 0.8#, Estimat Glomerular Filtration Rate , Glucose Level 108H, Calcium Level 8.4L, Troponin I 0.016, Thyroid Stimulating Hormone (TSH) 1.551 Height (Feet): 5 Height (Inches): 7.00 Weight (Pounds): 210 General Appearance: no apparent distress, alert Luiz Morrison MD Mar 22, 2018 21:35
--- NOTE | 2018-03-22 21:35 | General Progress Note ---
Assessment/Plan Problem List: (1) Dementia ICD Codes: F03.90 - Dementia SNOMED: 13391873 (2) Bipolar depression ICD Codes: F31.30 - Bipolar disorder, current episode depressed, mild or moderate severity, unspecified SNOMED: [id number] Status: stable, progressing Assessment/Plan risperdal 2mg qhs remeron 15mg qhs ativan prn Subjective Date patient seen: Mar 22, 2018 Neurologic/Psychiatric: Reports: anxiety, depressed, emotional problems Allergies: Coded Allergies: PIPERACILLIN (Unverified Allergy, Unknown, 03/10/18) TAZOBACTAM (Unverified Allergy, Unknown, 03/10/18) Objective Last 24 Hour Vital Signs Date Time Temp Pulse Resp B/P (MAP) Pulse Ox O2 Delivery O2 Flow Rate FiO2 03/22/18 20:41 Simple Mask 3.0 03/22/18 20:03 65 18 Room Air 21 03/22/18 20:00 98.9 72 18 136/67 (90) 96 98.9 03/22/18 16:10 97.9 63 19 141/77 (98) 99 97.9 03/22/18 12:00 98.2 82 19 145/64 (91) 94 98.2 03/22/18 09:18 Simple Mask 5.0 03/22/18 08:00 71 03/22/18 08:00 97.7 62 18 123/54 (77) 99 97.7 03/22/18 07:27 73 16 Room Air 21 03/22/18 06:10 69 120/56 03/22/18 04:00 97.2 82 20 133/55 (81) 99 97.2 03/22/18 04:00 64 03/22/18 00:00 68 03/22/18 00:00 97.4 77 24 124/60 (81) 96 97.4 Intake and Output 03/21/18 03/22/18 18:59 06:59 Intake Total 480 ml 300 ml Balance 480 ml 300 ml Intake Oral 480 ml 300 ml # Voids 2 3 # Bowel Movements 1 2 Laboratory Tests 03/22/18 05:40: White Blood Count 9.0, Red Blood Count 4.09L, Hemoglobin 11.9L, Hematocrit 36.4L , Mean Corpuscular Volume 89, Mean Corpuscular Hemoglobin 29.1, Mean Corpuscular Hemoglobin Concent 32.7, Red Cell Distribution Width 14.4, Platelet Count 159, Mean Platelet Volume 6.6, Neutrophils (%) (Auto) 82.7H, Lymphocytes ( %) (Auto) 8.9L, Monocytes (%) (Auto) 6.4, Eosinophils (%) (Auto) 1.5, Basophils (%) (Auto) 0.5, Sodium Level 142, Potassium Level 3.4L, Chloride Level 96L, Carbon Dioxide Level > 45*H, Blood Urea Nitrogen 17, Creatinine 0.8#, Estimat Glomerular Filtration Rate , Glucose Level 108H, Calcium Level 8.4L, Troponin I 0.016, Thyroid Stimulating Hormone (TSH) 1.551 Height (Feet): 5 Height (Inches): 7.00 Weight (Pounds): 210 General Appearance: no apparent distress, alert, agitated Luiz Morrison MD Mar 22, 2018 21:35
[2018-03-22] MEDS ORDERED: dilTIAZem HCl 90mg tab ORAL SCH (22:00)
--- NOTE | 2018-03-22 22:20 | Diagnostic Imaging Report ---
APPROVED REPORT CPT Code: 60280 Present Symptoms Shortness of breath BILATERAL: Imaging reveals a patent deep venous system bilaterally. There is no evidence of thrombus within the femoral, popliteal or tibial segments. The greater saphenous veins are also within normal limits. Doppler indicates normal spontaneous flow within these segments.
[2018-03-23] VITALS (7 sets, daily range): BP systolic 91–147; BP diastolic 54–80
[2018-03-23] MEDS ORDERED: Albuterol/Ipratropium 3ml neb HHN PRN (00:15)
[2018-03-23] MEDS ORDERED: LORazepam 1mg tab ORAL PRN (04:15)
[2018-03-23] MEDS: dilTIAZem HCl 90mg tab ORAL SCH ×3 (05:35→22:32)
[2018-03-23 07:40] LABS: BASOPHILS % (AUTO) 0.9 % (0.0-2.0); EOSINOPHILS % (AUTO) 2.8 % (0.0-3.0); HEMATOCRIT 36.3 % (37.0-47.0); HEMOGLOBIN 11.7 G/DL (12.0-16.0); LYMPHOCYTES % (AUTO) 12.7 % (20.0-45.0); MEAN CORPUSCULAR VOLUME 88 FL (80-99); MONOCYTES % (AUTO) 8.9 % (1.0-10.0); NEUTROPHILS % (AUTO) 74.7 % (45.0-75.0); PLATELET COUNT 160 K/UL (150-450); RED BLOOD COUNT 4.11 M/UL (4.20-5.40); RED CELL DISTRIBUTION WIDTH 14.3 % (11.6-14.8); WHITE BLOOD COUNT 8.3 K/UL (4.8-10.8)
[2018-03-23 08:02] LABS: BLOOD UREA NITROGEN 15 mg/dL (7-18); CALCIUM 8.6 MG/DL (8.5-10.1); CHLORIDE 97 MMOL/L (98-107); CREATININE 0.6 MG/DL (0.55-1.30); POTASSIUM 3.3 MMOL/L (3.5-5.1); SODIUM 143 MMOL/L (136-145)
[2018-03-23 08:17] LABS: CARBON DIOXIDE > 45 MMOL/L (21-32)
[2018-03-23] MEDS ORDERED: Amiodarone 200mg tab ORAL SCH (09:00)
[2018-03-23] MEDS: Eliquis 2.5mg tablet ORAL SCH ×2 (09:23→20:47)
--- NOTE | 2018-03-23 11:13 | Diagnostic Imaging Report ---
Indication: Dyspnea Comparison: 03/21/2018 A single view chest radiograph was obtained. Findings: Interstitial edema and prominent vascularity persist with cardiomegaly. IMPRESSION: No change from 2 days earlier. CHF
--- NOTE | 2018-03-23 12:08 | Pulmonology Progress Note ---
Assessment/Plan Problems: (1) Respiratory failure, acute (2) Pulmonary edema (3) COPD (chronic obstructive pulmonary disease) (4) Seizure disorder (5) Major depression (6) Gout (7) Bipolar depression Assessment/Plan respiratory treatment Lasix 40 BID on Amiodarone f/u bun/ creatinine check BNP f/u cardiology recommendations dvt prophylaxis Subjective ROS Limited/Unobtainable: No Interval Events: less short of breath Allergies: Coded Allergies: PIPERACILLIN (Unverified Allergy, Unknown, 03/10/18) TAZOBACTAM (Unverified Allergy, Unknown, 03/10/18) Objective Last 24 Hour Vital Signs Date Time Temp Pulse Resp B/P (MAP) Pulse Ox O2 Delivery O2 Flow Rate FiO2 03/23/18 10:03 Venturi Mask 10.0 03/23/18 08:17 60 18 Venturi Mask 10.0 45 03/23/18 08:00 97.8 70 20 144/68 (93) 96 97.8 03/23/18 06:01 Venturi Mask 10.0 45 03/23/18 05:35 95 145/75 03/23/18 04:00 68 03/23/18 04:00 97.7 76 22 145/75 (98) 90 97.7 03/23/18 00:00 100 03/23/18 00:00 98.0 98 22 147/80 (102) 90 98.0 03/22/18 22:00 Venturi Mask 10.0 03/22/18 22:00 98.6 89 21 105/62 (76) 90 98.6 03/22/18 20:41 Simple Mask 3.0 03/22/18 20:03 65 18 Room Air 21 03/22/18 20:00 98.9 72 18 136/67 (90) 96 98.9 03/22/18 16:10 97.9 63 19 141/77 (98) 99 97.9 Intake and Output 03/22/18 03/23/18 19:00 07:00 Intake Total 450 ml 120 ml Balance 450 ml 120 ml Intake Oral 450 ml 120 ml # Voids 2 3 # Bowel Movements 2 General Appearance: WD/WN HEENT: normocephalic, atraumatic Respiratory/Chest: chest wall non-tender Cardiovascular: normal peripheral pulses, normal rate Abdomen: normal bowel sounds, soft, non tender Genitourinary: normal external genitalia Extremities: no cyanosis Skin: no rash Neurologic/Psychiatric: director women II-XII grossly normal Lymphatic: no neck adenopathy Laboratory Tests 03/23/18 06:15: White Blood Count 8.3, Red Blood Count 4.11L, Hemoglobin 11.7L, Hematocrit 36.3L , Mean Corpuscular Volume 88, Mean Corpuscular Hemoglobin 28.5, Mean Corpuscular Hemoglobin Concent 32.3, Red Cell Distribution Width 14.3, Platelet Count 160, Mean Platelet Volume 7.3, Neutrophils (%) (Auto) 74.7, Lymphocytes (% ) (Auto) 12.7L, Monocytes (%) (Auto) 8.9, Eosinophils (%) (Auto) 2.8, Basophils (%) (Auto) 0.9, Sodium Level 143, Potassium Level 3.3L, Chloride Level 97L, Carbon Dioxide Level > 45*H, Blood Urea Nitrogen 15, Creatinine 0.6, Estimat Glomerular Filtration Rate , Glucose Level 95, Calcium Level 8.6, Pro-B-Type Natriuretic Peptide 4708H Current Medications Medications (Trade) Dose Ordered Sig/Ibrahima Route PRN Reason Start Time Stop Time Status Last Admin Dose Admin Acetaminophen (Tylenol) 650 mg Q4H PRN ORAL Fever 03/23/18 00:15 04/19/18 16:05 Albuterol/ Ipratropium (Albuterol/ Ipratropium) 3 ml Q4H PRN HHN Shortness of Breath 03/23/18 00:15 03/25/18 16:05 Amiodarone HCl (Cordarone) 200 mg EVERY 12 HOURS ORAL 03/23/18 09:00 04/21/18 20:59 03/23/18 09:23 Apixaban (Eliquis) 5 mg Q12HR ORAL 03/23/18 09:00 04/21/18 20:59 03/23/18 09:23 Dextrose (Dextrose 50%) 25 ml Q30M PRN IV Hypoglycemia 03/22/18 23:15 04/19/18 16:05 Dextrose (Dextrose 50%) 50 ml Q30M PRN IV Hypoglycemia 03/22/18 23:15 04/19/18 16:05 Diltiazem HCl (Cardizem) 90 mg EVERY 8 HOURS ORAL 03/23/18 06:00 04/21/18 21:59 03/23/18 05:35 Furosemide (Lasix) 40 mg EVERY 12 HOURS IV 03/23/18 09:00 04/21/18 20:59 03/23/18 09:23 Lorazepam (Ativan) 2 mg Q6H PRN ORAL For Anxiety 03/23/18 04:15 03/27/18 16:06 Mirtazapine (Remeron) 15 mg BEDTIME ORAL 03/23/18 21:00 04/19/18 20:59 Ondansetron HCl (Zofran) 4 mg Q6H PRN IVP Nausea & Vomiting 03/23/18 04:15 04/19/18 16:06 Pantoprazole (Protonix) 40 mg BIAC ORAL 03/23/18 06:30 04/19/18 08:59 03/23/18 05:35 Polyethylene Glycol (Miralax) 17 gm DAILYPRN PRN ORAL Constipation 03/23/18 16:15 04/21/18 16:06 Risperidone (RisperDAL) 2 mg BEDTIME ORAL 03/23/18 21:00 04/19/18 20:59 Temazepam (Restoril) 15 mg HSPRN PRN ORAL Insomnia 03/23/18 21:00 03/27/18 20:59 Mendel Sierra MD Mar 23, 2018 12:08
--- NOTE | 2018-03-23 12:27 | General Progress Note ---
Assessment/Plan Problem List: (1) Dementia ICD Codes: F03.90 - Dementia SNOMED: 97834955 (2) Bipolar depression ICD Codes: F31.30 - Bipolar disorder, current episode depressed, mild or moderate severity, unspecified SNOMED: 60514093 Status: unchanged Assessment/Plan risperdal 2mg qhs remeron 15mg qhs ativan prn Subjective Date patient seen: Mar 23, 2018 Neurologic/Psychiatric: Reports: anxiety, depressed, emotional problems Allergies: Coded Allergies: PIPERACILLIN (Unverified Allergy, Unknown, 03/10/18) TAZOBACTAM (Unverified Allergy, Unknown, 03/10/18) Subjective "I am miserable" Objective Last 24 Hour Vital Signs Date Time Temp Pulse Resp B/P (MAP) Pulse Ox O2 Delivery O2 Flow Rate FiO2 03/23/18 10:03 Venturi Mask 10.0 03/23/18 08:17 60 18 Venturi Mask 10.0 45 03/23/18 08:00 97.8 70 20 144/68 (93) 96 97.8 03/23/18 06:01 Venturi Mask 10.0 45 03/23/18 05:35 95 145/75 03/23/18 04:00 68 03/23/18 04:00 97.7 76 22 145/75 (98) 90 97.7 03/23/18 00:00 100 03/23/18 00:00 98.0 98 22 147/80 (102) 90 98.0 03/22/18 22:00 Venturi Mask 10.0 03/22/18 22:00 98.6 89 21 105/62 (76) 90 98.6 03/22/18 20:41 Simple Mask 3.0 03/22/18 20:03 65 18 Room Air 21 03/22/18 20:00 98.9 72 18 136/67 (90) 96 98.9 03/22/18 16:10 97.9 63 19 141/77 (98) 99 97.9 Intake and Output 03/22/18 03/23/18 19:00 07:00 Intake Total 450 ml 120 ml Balance 450 ml 120 ml Intake Oral 450 ml 120 ml # Voids 2 3 # Bowel Movements 2 Laboratory Tests 03/23/18 06:15: White Blood Count 8.3, Red Blood Count 4.11L, Hemoglobin 11.7L, Hematocrit 36.3L , Mean Corpuscular Volume 88, Mean Corpuscular Hemoglobin 28.5, Mean Corpuscular Hemoglobin Concent 32.3, Red Cell Distribution Width 14.3, Platelet Count 160, Mean Platelet Volume 7.3, Neutrophils (%) (Auto) 74.7, Lymphocytes (% ) (Auto) 12.7L, Monocytes (%) (Auto) 8.9, Eosinophils (%) (Auto) 2.8, Basophils (%) (Auto) 0.9, Sodium Level 143, Potassium Level 3.3L, Chloride Level 97L, Carbon Dioxide Level > 45*H, Blood Urea Nitrogen 15, Creatinine 0.6, Estimat Glomerular Filtration Rate , Glucose Level 95, Calcium Level 8.6, Pro-B-Type Natriuretic Peptide 4708H Height (Feet): 5 Height (Inches): 7.00 Weight (Pounds): 210 General Appearance: no apparent distress, alert, confused Luiz Morrison MD Mar 23, 2018 12:27
--- NOTE | 2018-03-23 13:48 | Cardiac Electrophysiology PN ---
Assessment/Plan Assessment/Plan 1. Atrial flutter with rapid ventricular response. The patient is in and out of atrial flutter. Continue Cardizem 90 mg every 8 hours and apixaban 5 mg and decrease amiodarone to 200 mg daily 2. Congestive heart failure. On Lasix 40 mg iv bid hours. FU by Dr. Wakefield. 3. Hypertension on Cardizem and Lasix. 4. Psychosis and schizophrenia on Risperdal. DW RN Subjective Subjective Transferred to [facility] for atrial flutter with RVR 120s. Now in SR. No CP or SOB. Objective Last 24 Hour Vital Signs Date Time Temp Pulse Resp B/P (MAP) Pulse Ox O2 Delivery O2 Flow Rate FiO2 03/23/18 12:00 78 03/23/18 12:00 98.5 111 20 126/54 (78) 94 98.5 03/23/18 10:03 Venturi Mask 10.0 03/23/18 08:17 60 18 Venturi Mask 10.0 45 03/23/18 08:00 83 03/23/18 08:00 97.8 70 20 144/68 (93) 96 97.8 03/23/18 06:01 Venturi Mask 10.0 45 03/23/18 05:35 95 145/75 03/23/18 04:00 68 03/23/18 04:00 97.7 76 22 145/75 (98) 90 97.7 03/23/18 00:00 100 03/23/18 00:00 98.0 98 22 147/80 (102) 90 98.0 03/22/18 22:00 Venturi Mask 10.0 03/22/18 22:00 98.6 89 21 105/62 (76) 90 98.6 03/22/18 20:41 Simple Mask 3.0 03/22/18 20:03 65 18 Room Air 21 03/22/18 20:00 98.9 72 18 136/67 (90) 96 98.9 03/22/18 16:10 97.9 63 19 141/77 (98) 99 97.9 Intake and Output 03/22/18 03/23/18 19:00 07:00 Intake Total 450 ml 120 ml Balance 450 ml 120 ml Intake Oral 450 ml 120 ml # Voids 2 3 # Bowel Movements 2 Laboratory Tests Test 03/23/18 06:15 White Blood Count 8.3 K/UL (4.8-10.8) Red Blood Count 4.11 M/UL (4.20-5.40) L Hemoglobin 11.7 G/DL (12.0-16.0) L Hematocrit 36.3 % (37.0-47.0) L Mean Corpuscular Volume 88 FL (80-99) Mean Corpuscular Hemoglobin 28.5 PG (27.0-31.0) Mean Corpuscular Hemoglobin Concent 32.3 G/DL (32.0-36.0) Red Cell Distribution Width 14.3 % (11.6-14.8) Platelet Count 160 K/UL (150-450) Mean Platelet Volume 7.3 FL (6.5-10.1) Neutrophils (%) (Auto) 74.7 % (45.0-75.0) Lymphocytes (%) (Auto) 12.7 % (20.0-45.0) L Monocytes (%) (Auto) 8.9 % (1.0-10.0) Eosinophils (%) (Auto) 2.8 % (0.0-3.0) Basophils (%) (Auto) 0.9 % (0.0-2.0) Sodium Level 143 MMOL/L (136-145) Potassium Level 3.3 MMOL/L (3.5-5.1) L Chloride Level 97 MMOL/L (98-107) L Carbon Dioxide Level > 45 MMOL/L (21-32) *H Blood Urea Nitrogen 15 mg/dL (7-18) Creatinine 0.6 MG/DL (0.55-1.30) Estimat Glomerular Filtration Rate mL/min (>60) Glucose Level 95 MG/DL (74-106) Calcium Level 8.6 MG/DL (8.5-10.1) Pro-B-Type Natriuretic Peptide 4708 pg/mL (0-125) H Objective HEAD AND NECK: No JVD. LUNGS: Clear. CARDIOVASCULAR: Irregular S1 and S2 with no gallop or murmur. ABDOMEN: Soft. EXTREMITIES: No pitting edema. Yohan Milian MD Mar 23, 2018 13:48
--- NOTE | 2018-03-23 14:10 | Cardiac Electrophysiology PN ---
Assessment/Plan Assessment/Plan 1. Atrial flutter with rapid ventricular response. The patient is in and out of atrial flutter. Continue Cardizem 90 mg every 8 hours and apixaban 5 mg and decrease amiodarone to 200 mg daily 2.. 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 Congestive heart failure. On Lasix 40 mg iv bid hours. FU by Dr. Wakefield. 4. Hypertension on Cardizem and Lasix. 5. Psychosis and schizophrenia on Risperdal. DYLAN RN Subjective Subjective Transferred to [facility] for atrial flutter with RVR 120s. Now in SR. No CP or SOB. Objective Last 24 Hour Vital Signs Date Time Temp Pulse Resp B/P (MAP) Pulse Ox O2 Delivery O2 Flow Rate FiO2 03/23/18 12:00 78 03/23/18 12:00 98.5 111 20 126/54 (78) 94 98.5 03/23/18 10:03 Venturi Mask 10.0 03/23/18 08:17 60 18 Venturi Mask 10.0 45 03/23/18 08:00 83 03/23/18 08:00 97.8 70 20 144/68 (93) 96 97.8 03/23/18 06:01 Venturi Mask 10.0 45 03/23/18 05:35 95 145/75 03/23/18 04:00 68 03/23/18 04:00 97.7 76 22 145/75 (98) 90 97.7 03/23/18 00:00 100 03/23/18 00:00 98.0 98 22 147/80 (102) 90 98.0 03/22/18 22:00 Venturi Mask 10.0 03/22/18 22:00 98.6 89 21 105/62 (76) 90 98.6 03/22/18 20:41 Simple Mask 3.0 03/22/18 20:03 65 18 Room Air 21 03/22/18 20:00 98.9 72 18 136/67 (90) 96 98.9 03/22/18 16:10 97.9 63 19 141/77 (98) 99 97.9 Intake and Output 03/22/18 03/23/18 19:00 07:00 Intake Total 450 ml 120 ml Balance 450 ml 120 ml Intake Oral 450 ml 120 ml # Voids 2 3 # Bowel Movements 2 Laboratory Tests Test 03/23/18 06:15 White Blood Count 8.3 K/UL (4.8-10.8) Red Blood Count 4.11 M/UL (4.20-5.40) L Hemoglobin 11.7 G/DL (12.0-16.0) L Hematocrit 36.3 % (37.0-47.0) L Mean Corpuscular Volume 88 FL (80-99) Mean Corpuscular Hemoglobin 28.5 PG (27.0-31.0) Mean Corpuscular Hemoglobin Concent 32.3 G/DL (32.0-36.0) Red Cell Distribution Width 14.3 % (11.6-14.8) Platelet Count 160 K/UL (150-450) Mean Platelet Volume 7.3 FL (6.5-10.1) Neutrophils (%) (Auto) 74.7 % (45.0-75.0) Lymphocytes (%) (Auto) 12.7 % (20.0-45.0) L Monocytes (%) (Auto) 8.9 % (1.0-10.0) Eosinophils (%) (Auto) 2.8 % (0.0-3.0) Basophils (%) (Auto) 0.9 % (0.0-2.0) Sodium Level 143 MMOL/L (136-145) Potassium Level 3.3 MMOL/L (3.5-5.1) L Chloride Level 97 MMOL/L (98-107) L Carbon Dioxide Level > 45 MMOL/L (21-32) *H Blood Urea Nitrogen 15 mg/dL (7-18) Creatinine 0.6 MG/DL (0.55-1.30) Estimat Glomerular Filtration Rate mL/min (>60) Glucose Level 95 MG/DL (74-106) Calcium Level 8.6 MG/DL (8.5-10.1) Pro-B-Type Natriuretic Peptide 4708 pg/mL (0-125) H Objective HEAD AND NECK: No JVD. LUNGS: Clear. CARDIOVASCULAR: Irregular S1 and S2 with no gallop or murmur. ABDOMEN: Soft. EXTREMITIES: No pitting edema. Yohan Milian MD Mar 23, 2018 14:10
[2018-03-23] MEDS ORDERED: Miralax 17gm pkt ORAL PRN (16:15)
--- NOTE | 2018-03-23 18:03 | Internal Med Progress Note ---
Subjective Date of Service: Mar 23, 2018 Physician Name Juan Dutta Attending Physician Yonathan Mendoza MD Current Medications Medications (Trade) Dose Ordered Sig/Ibrahima Route PRN Reason Start Time Stop Time Status Last Admin Dose Admin Acetaminophen (Tylenol) 650 mg Q4H PRN ORAL Fever 03/23/18 00:15 04/19/18 16:05 Albuterol/ Ipratropium (Albuterol/ Ipratropium) 3 ml Q4H PRN HHN Shortness of Breath 03/23/18 00:15 03/25/18 16:05 Amiodarone HCl (Cordarone) 200 mg DAILY ORAL 03/24/18 09:00 04/21/18 20:59 Apixaban (Eliquis) 5 mg Q12HR ORAL 03/23/18 09:00 04/21/18 20:59 03/23/18 09:23 Dextrose (Dextrose 50%) 25 ml Q30M PRN IV Hypoglycemia 03/22/18 23:15 04/19/18 16:05 Dextrose (Dextrose 50%) 50 ml Q30M PRN IV Hypoglycemia 03/22/18 23:15 04/19/18 16:05 Diltiazem HCl (Cardizem) 90 mg EVERY 8 HOURS ORAL 03/23/18 06:00 04/21/18 21:59 03/23/18 14:30 Furosemide (Lasix) 40 mg EVERY 12 HOURS IV 03/23/18 09:00 04/21/18 20:59 03/23/18 09:23 Lorazepam (Ativan) 2 mg Q6H PRN ORAL For Anxiety 03/23/18 04:15 03/27/18 16:06 Mirtazapine (Remeron) 15 mg BEDTIME ORAL 03/23/18 21:00 04/19/18 20:59 Ondansetron HCl (Zofran) 4 mg Q6H PRN IVP Nausea & Vomiting 03/23/18 04:15 04/19/18 16:06 Pantoprazole (Protonix) 40 mg BIAC ORAL 03/23/18 06:30 04/19/18 08:59 03/23/18 17:50 Polyethylene Glycol (Miralax) 17 gm DAILYPRN PRN ORAL Constipation 03/23/18 16:15 04/21/18 16:06 Potassium Chloride (K-Dur) 40 meq ONCE ONCE ORAL 03/23/18 18:00 03/23/18 18:01 UNV Risperidone (RisperDAL) 2 mg BEDTIME ORAL 03/23/18 21:00 04/19/18 20:59 Temazepam (Restoril) 15 mg HSPRN PRN ORAL Insomnia 03/23/18 21:00 03/27/18 20:59 Allergies: Coded Allergies: PIPERACILLIN (Unverified Allergy, Unknown, 03/10/18) TAZOBACTAM (Unverified Allergy, Unknown, 03/10/18) ROS Limited/Unobtainable: No Constitutional: Reports: no symptoms HEENT: Reports: no symptoms Cardiovascular: Reports: no symptoms Respiratory: Reports: no symptoms Gastrointestinal/Abdominal: Reports: no symptoms Genitourinary: Reports: no symptoms Neurologic/Psychiatric: Reports: no symptoms Subjective 77 YO F admitted with shortness of breath. Now CHF. Cover for Int Med-Dr Mendoza. Objective Last Vital Signs Date Time Temp Pulse Resp B/P (MAP) Pulse Ox O2 Delivery O2 Flow Rate FiO2 03/23/18 16:00 98.4 110 20 91/57 (68) 94 98.4 03/23/18 15:30 Venturi Mask 10.0 45 Laboratory Tests Test 03/23/18 06:15 White Blood Count 8.3 K/UL (4.8-10.8) Red Blood Count 4.11 M/UL (4.20-5.40) L Hemoglobin 11.7 G/DL (12.0-16.0) L Hematocrit 36.3 % (37.0-47.0) L Mean Corpuscular Volume 88 FL (80-99) Mean Corpuscular Hemoglobin 28.5 PG (27.0-31.0) Mean Corpuscular Hemoglobin Concent 32.3 G/DL (32.0-36.0) Red Cell Distribution Width 14.3 % (11.6-14.8) Platelet Count 160 K/UL (150-450) Mean Platelet Volume 7.3 FL (6.5-10.1) Neutrophils (%) (Auto) 74.7 % (45.0-75.0) Lymphocytes (%) (Auto) 12.7 % (20.0-45.0) L Monocytes (%) (Auto) 8.9 % (1.0-10.0) Eosinophils (%) (Auto) 2.8 % (0.0-3.0) Basophils (%) (Auto) 0.9 % (0.0-2.0) Sodium Level 143 MMOL/L (136-145) Potassium Level 3.3 MMOL/L (3.5-5.1) L Chloride Level 97 MMOL/L (98-107) L Carbon Dioxide Level > 45 MMOL/L (21-32) *H Blood Urea Nitrogen 15 mg/dL (7-18) Creatinine 0.6 MG/DL (0.55-1.30) Estimat Glomerular Filtration Rate mL/min (>60) Glucose Level 95 MG/DL (74-106) Calcium Level 8.6 MG/DL (8.5-10.1) Pro-B-Type Natriuretic Peptide 4708 pg/mL (0-125) H Intake and Output 03/22/18 03/23/18 19:00 07:00 Intake Total 450 ml 120 ml Balance 450 ml 120 ml Intake Oral 450 ml 120 ml # Voids 2 3 # Bowel Movements 2 Objective General Appearance: WD/WN, no apparent distress, alert EENT: PERRL/EOMI, normal ENT inspection Neck: non-tender, normal alignment, supple, normal inspection Cardiovascular: normal peripheral pulses, normal rate, no gallop/murmur, no JVD , irregularly irregular Respiratory/Chest: crackles/rales, rhonchi - bilaterally, expiratory wheezing Abdomen: normal bowel sounds, non tender, soft, no organomegaly, no mass Extremities: normal range of motion Neurologic: 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 See cardiology note. Continue lasix. Await echocardiogram. EP cardiology consult-Dr Milian (3) Hypoxia (4) Dyspnea Assessment & Plan: Due to CHF (5) COPD (chronic obstructive pulmonary disease) (6) HTN (hypertension) Assessment & Plan: Continue cardizem (7) Atrial flutter Assessment & Plan: See cardiology note. (8) Seizure disorder (9) Major depression (10) H/O ETOH abuse Status: Juan Maciel MD Mar 23, 2018 18:03
--- NOTE | 2018-03-23 23:17 | Cardiology Progress Note ---
Assessment/Plan Status: stable Assessment/Plan (1) Respiratory failure, acute (2) Pulmonary edema (4) Seizure disorder (5) Major depression (6) Gout (7) Congestive heart failure (8) Cardiomegaly Plan: Avoid sedatives Check BNP Mild diuresis -> Transitioned to PO lasix 40 BID Physical therapy/ambulate Continue cardizem Continue eliquis Continue amiodarone per Electrophysiology -Dr. Milian Daily labs and weights Monitor urine output and renal function Serial CXR Transition to floor Subjective Cardiovascular: Reports: no symptoms Respiratory: Reports: no symptoms Gastrointestinal/Abdominal: Reports: no symptoms Genitourinary: Reports: no symptoms Subjective No acute events, vitals stable, HR controlled, urine output 800cc, on room air, no distress, no complaints. Amidarone started for AFIB Objective Last 24 Hour Vital Signs Date Time Temp Pulse Resp B/P (MAP) Pulse Ox O2 Delivery O2 Flow Rate FiO2 03/23/18 22:32 115 142/76 03/23/18 19:54 99.1 95 17 138/73 (94) 100 99.1 03/23/18 19:47 Nasal Cannula 3.0 32 03/23/18 19:38 67 18 Nasal Cannula 3.0 32 03/23/18 16:00 98.4 110 20 91/57 (68) 94 98.4 03/23/18 16:00 82 03/23/18 15:30 Venturi Mask 10.0 45 03/23/18 14:30 78 126/54 03/23/18 12:00 78 03/23/18 12:00 98.5 111 20 126/54 (78) 94 98.5 03/23/18 10:03 Venturi Mask 10.0 03/23/18 08:17 60 18 Venturi Mask 10.0 45 03/23/18 08:00 83 03/23/18 08:00 97.8 70 20 144/68 (93) 96 97.8 03/23/18 06:01 Venturi Mask 10.0 45 03/23/18 05:35 95 145/75 03/23/18 04:00 68 03/23/18 04:00 97.7 76 22 145/75 (98) 90 97.7 03/23/18 00:00 100 03/23/18 00:00 98.0 98 22 147/80 (102) 90 98.0 General Appearance: no apparent distress, alert EENT: PERRL/EOMI, normal ENT inspection, TMs normal, pharynx normal Neck: non-tender, normal alignment, supple, normal inspection, no JVD Rhythm: Afib Cardiovascular: normal peripheral pulses, normal rate Respiratory/Chest: chest wall non-tender, lungs clear, normal breath sounds, no respiratory distress, no accessory muscle use Abdomen: normal bowel sounds, non tender, soft, no organomegaly Extremities: normal range of motion, non-tender, normal inspection 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, no motor/sensory deficits, alert, oriented x 3 Intake and Output 03/22/18 03/23/18 18:59 06:59 Intake Total 450 ml 120 ml Balance 450 ml 120 ml Intake Oral 450 ml 120 ml # Voids 2 3 # Bowel Movements 2 Laboratory Tests Test 03/23/18 06:15 White Blood Count 8.3 K/UL (4.8-10.8) Red Blood Count 4.11 M/UL (4.20-5.40) L Hemoglobin 11.7 G/DL (12.0-16.0) L Hematocrit 36.3 % (37.0-47.0) L Mean Corpuscular Volume 88 FL (80-99) Mean Corpuscular Hemoglobin 28.5 PG (27.0-31.0) Mean Corpuscular Hemoglobin Concent 32.3 G/DL (32.0-36.0) Red Cell Distribution Width 14.3 % (11.6-14.8) Platelet Count 160 K/UL (150-450) Mean Platelet Volume 7.3 FL (6.5-10.1) Neutrophils (%) (Auto) 74.7 % (45.0-75.0) Lymphocytes (%) (Auto) 12.7 % (20.0-45.0) L Monocytes (%) (Auto) 8.9 % (1.0-10.0) Eosinophils (%) (Auto) 2.8 % (0.0-3.0) Basophils (%) (Auto) 0.9 % (0.0-2.0) Sodium Level 143 MMOL/L (136-145) Potassium Level 3.3 MMOL/L (3.5-5.1) L Chloride Level 97 MMOL/L (98-107) L Carbon Dioxide Level > 45 MMOL/L (21-32) *H Blood Urea Nitrogen 15 mg/dL (7-18) Creatinine 0.6 MG/DL (0.55-1.30) Estimat Glomerular Filtration Rate mL/min (>60) Glucose Level 95 MG/DL (74-106) Calcium Level 8.6 MG/DL (8.5-10.1) Pro-B-Type Natriuretic Peptide 4708 pg/mL (0-125) H Josue Wakefield MD Mar 23, 2018 23:17
[2018-03-24 04:00] VITALS: BP 136/75
[2018-03-24] MEDS: dilTIAZem HCl 90mg tab ORAL SCH ×3 (05:41→21:53)
[2018-03-24 07:09] LABS: BASOPHILS % (AUTO) 0.7 % (0.0-2.0); EOSINOPHILS % (AUTO) 3.2 % (0.0-3.0); HEMOGLOBIN 11.2 G/DL (12.0-16.0); LYMPHOCYTES % (AUTO) 10.4 % (20.0-45.0); MEAN CORPUSCULAR VOLUME 88 FL (80-99); MONOCYTES % (AUTO) 9.6 % (1.0-10.0); NEUTROPHILS % (AUTO) 76.1 % (45.0-75.0); PLATELET COUNT 163 K/UL (150-450); RED BLOOD COUNT 3.85 M/UL (4.20-5.40); RED CELL DISTRIBUTION WIDTH 14.7 % (11.6-14.8); WHITE BLOOD COUNT 10.3 K/UL (4.8-10.8)
[2018-03-24 07:16] LABS: BLOOD UREA NITROGEN 13 mg/dL (7-18); CALCIUM 8.3 MG/DL (8.5-10.1); CHLORIDE 97 MMOL/L (98-107); CREATININE 0.6 MG/DL (0.55-1.30); POTASSIUM 3.6 MMOL/L (3.5-5.1); SODIUM 141 MMOL/L (136-145)
[2018-03-24 07:20] LABS: CARBON DIOXIDE > 45 MMOL/L (21-32)
[2018-03-24 08:00] VITALS: BP 122/44
[2018-03-24] MEDS: Amiodarone 200mg tab ORAL SCH (08:53)
[2018-03-24] MEDS: Eliquis 2.5mg tablet ORAL SCH ×2 (08:54→20:43)
--- NOTE | 2018-03-24 10:10 | Pulmonology Progress Note ---
Assessment/Plan Problems: (1) Respiratory failure, acute (2) Pulmonary edema (3) COPD (chronic obstructive pulmonary disease) (4) Seizure disorder (5) Major depression (6) Gout (7) Bipolar depression Assessment/Plan CXR reviewed, still large pulmonary edema respiratory treatment increase Lasix to 40 q8 on Amiodarone f/u bun/ creatinine check BNP in am f/u cardiology recommendations dvt prophylaxis Subjective ROS Limited/Unobtainable: No Constitutional: Reports: no symptoms HEENT: Repors: no symptoms Respiratory: Reports: no symptoms Allergies: Coded Allergies: PIPERACILLIN (Unverified Allergy, Unknown, 03/10/18) TAZOBACTAM (Unverified Allergy, Unknown, 03/10/18) Objective Last 24 Hour Vital Signs Date Time Temp Pulse Resp B/P (MAP) Pulse Ox O2 Delivery O2 Flow Rate FiO2 03/24/18 08:00 98.4 63 18 122/44 (70) 100 98.4 03/24/18 07:18 Nasal Cannula 4.0 36 03/24/18 07:18 60 18 Nasal Cannula 4.0 36 03/24/18 05:41 75 132/60 03/24/18 04:00 98.9 99 18 136/75 (95) 99 98.9 03/24/18 03:29 64 03/23/18 23:36 98.8 97 19 133/76 (95) 99 98.8 03/23/18 23:30 74 03/23/18 22:32 115 142/76 03/23/18 21:00 Venturi Mask 10.0 03/23/18 19:54 99.1 95 17 138/73 (94) 100 99.1 03/23/18 19:54 99 03/23/18 19:47 Nasal Cannula 3.0 32 03/23/18 19:38 67 18 Nasal Cannula 3.0 32 03/23/18 16:00 98.4 110 20 91/57 (68) 94 98.4 03/23/18 16:00 82 03/23/18 15:30 Venturi Mask 10.0 45 03/23/18 14:30 78 126/54 03/23/18 12:00 78 03/23/18 12:00 98.5 111 20 126/54 (78) 94 98.5 Intake and Output 03/23/18 03/24/18 19:00 07:00 Intake Total 960 ml 780 ml Balance 960 ml 780 ml Intake Oral 960 ml 780 ml # Voids 4 3 # Bowel Movements 1 1 General Appearance: WD/WN HEENT: normocephalic, atraumatic Respiratory/Chest: chest wall non-tender, lungs clear Cardiovascular: normal peripheral pulses, normal rate, regular rhythm Abdomen: normal bowel sounds, soft, non tender Genitourinary: normal external genitalia Extremities: no cyanosis Skin: no rash Lymphatic: no neck adenopathy Laboratory Tests 03/24/18 06:00: White Blood Count 10.3, Red Blood Count 3.85L, Hemoglobin 11.2L, Hematocrit 34.0L, Mean Corpuscular Volume 88, Mean Corpuscular Hemoglobin 29.1, Mean Corpuscular Hemoglobin Concent 33.0, Red Cell Distribution Width 14.7, Platelet Count 163, Mean Platelet Volume 6.9, Neutrophils (%) (Auto) 76.1H, Lymphocytes ( %) (Auto) 10.4L, Monocytes (%) (Auto) 9.6, Eosinophils (%) (Auto) 3.2H, Basophils (%) (Auto) 0.7, Sodium Level 141, Potassium Level 3.6, Chloride Level 97L, Carbon Dioxide Level > 45*H, Blood Urea Nitrogen 13, Creatinine 0.6, Estimat Glomerular Filtration Rate , Glucose Level 102, Calcium Level 8.3L Current Medications Medications (Trade) Dose Ordered Sig/Ibrahima Route PRN Reason Start Time Stop Time Status Last Admin Dose Admin Acetaminophen (Tylenol) 650 mg Q4H PRN ORAL Fever 03/23/18 00:15 04/19/18 16:05 Albuterol/ Ipratropium (Albuterol/ Ipratropium) 3 ml Q4H PRN HHN Shortness of Breath 03/23/18 00:15 03/25/18 16:05 Amiodarone HCl (Cordarone) 200 mg DAILY ORAL 03/24/18 09:00 04/21/18 20:59 03/24/18 08:53 Apixaban (Eliquis) 5 mg Q12HR ORAL 03/23/18 09:00 04/21/18 20:59 03/24/18 08:54 Dextrose (Dextrose 50%) 25 ml Q30M PRN IV Hypoglycemia 03/22/18 23:15 04/19/18 16:05 Dextrose (Dextrose 50%) 50 ml Q30M PRN IV Hypoglycemia 03/22/18 23:15 04/19/18 16:05 Diltiazem HCl (Cardizem) 90 mg EVERY 8 HOURS ORAL 03/23/18 06:00 04/21/18 21:59 03/24/18 05:41 Furosemide (Lasix) 40 mg EVERY 12 HOURS IV 03/23/18 09:00 04/21/18 20:59 03/24/18 08:53 Lorazepam (Ativan) 2 mg Q6H PRN ORAL For Anxiety 03/23/18 04:15 03/27/18 16:06 Mirtazapine (Remeron) 15 mg BEDTIME ORAL 03/23/18 21:00 04/19/18 20:59 03/23/18 20:47 Ondansetron HCl (Zofran) 4 mg Q6H PRN IVP Nausea & Vomiting 03/23/18 04:15 04/19/18 16:06 Pantoprazole (Protonix) 40 mg BIAC ORAL 03/23/18 06:30 04/19/18 08:59 03/24/18 05:40 Polyethylene Glycol (Miralax) 17 gm DAILYPRN PRN ORAL Constipation 03/23/18 16:15 04/21/18 16:06 Risperidone (RisperDAL) 2 mg BEDTIME ORAL 03/23/18 21:00 04/19/18 20:59 03/23/18 20:47 Temazepam (Restoril) 15 mg HSPRN PRN ORAL Insomnia 03/23/18 21:00 03/27/18 20:59 Mendel Sierra MD Mar 24, 2018 10:09
[2018-03-24 12:00] VITALS: BP 115/62
--- NOTE | 2018-03-24 15:36 | Cardiac Electrophysiology PN ---
Assessment/Plan Assessment/Plan 1. Atrial flutter with rapid ventricular response. In SR. Continue Cardizem 90 mg every 8 hours and apixaban 5 mg and amiodarone 200 mg daily 2. S/P Medtronic Micra Leadless pacer implantation at [facility] 01/2016 3. Congestive heart failure. On Lasix 40 mg iv q [address] Wakefield. 4. Hypertension on Cardizem and Lasix. 5. Psychosis and schizophrenia on Risperdal. DYLAN RN Subjective Subjective Occasionally V paced. No CP or SOB. Objective Last 24 Hour Vital Signs Date Time Temp Pulse Resp B/P (MAP) Pulse Ox O2 Delivery O2 Flow Rate FiO2 03/24/18 13:39 98.2 03/24/18 13:37 105 115/62 03/24/18 12:00 98.2 105 20 115/62 (79) 99 98.2 03/24/18 12:00 68 03/24/18 09:00 Venturi Mask 10.0 03/24/18 08:00 77 03/24/18 08:00 98.4 63 18 122/44 (70) 100 98.4 03/24/18 07:18 Nasal Cannula 4.0 36 03/24/18 07:18 60 18 Nasal Cannula 4.0 36 03/24/18 05:41 75 132/60 03/24/18 04:00 98.9 99 18 136/75 (95) 99 98.9 03/24/18 03:29 64 03/23/18 23:36 98.8 97 19 133/76 (95) 99 98.8 03/23/18 23:30 74 03/23/18 22:32 115 142/76 03/23/18 21:00 Venturi Mask 10.0 03/23/18 19:54 99.1 95 17 138/73 (94) 100 99.1 03/23/18 19:54 99 03/23/18 19:47 Nasal Cannula 3.0 32 03/23/18 19:38 67 18 Nasal Cannula 3.0 32 03/23/18 16:00 98.4 110 20 91/57 (68) 94 98.4 03/23/18 16:00 82 Intake and Output 03/23/18 03/24/18 19:00 07:00 Intake Total 960 ml 780 ml Balance 960 ml 780 ml Intake Oral 960 ml 780 ml # Voids 4 3 # Bowel Movements 1 1 Laboratory Tests Test 03/24/18 06:00 White Blood Count 10.3 K/UL (4.8-10.8) Red Blood Count 3.85 M/UL (4.20-5.40) L Hemoglobin 11.2 G/DL (12.0-16.0) L Hematocrit 34.0 % (37.0-47.0) L Mean Corpuscular Volume 88 FL (80-99) Mean Corpuscular Hemoglobin 29.1 PG (27.0-31.0) Mean Corpuscular Hemoglobin Concent 33.0 G/DL (32.0-36.0) Red Cell Distribution Width 14.7 % (11.6-14.8) Platelet Count 163 K/UL (150-450) Mean Platelet Volume 6.9 FL (6.5-10.1) Neutrophils (%) (Auto) 76.1 % (45.0-75.0) H Lymphocytes (%) (Auto) 10.4 % (20.0-45.0) L Monocytes (%) (Auto) 9.6 % (1.0-10.0) Eosinophils (%) (Auto) 3.2 % (0.0-3.0) H Basophils (%) (Auto) 0.7 % (0.0-2.0) Sodium Level 141 MMOL/L (136-145) Potassium Level 3.6 MMOL/L (3.5-5.1) Chloride Level 97 MMOL/L (98-107) L Carbon Dioxide Level > 45 MMOL/L (21-32) *H Blood Urea Nitrogen 13 mg/dL (7-18) Creatinine 0.6 MG/DL (0.55-1.30) Estimat Glomerular Filtration Rate mL/min (>60) Glucose Level 102 MG/DL (74-106) Calcium Level 8.3 MG/DL (8.5-10.1) L Objective HEAD AND NECK: No JVD. LUNGS: Clear. CARDIOVASCULAR: Regular. S1 and S2 with no gallop or murmur. ABDOMEN: Soft. EXTREMITIES: No pitting edema. Yohan Milian MD Mar 24, 2018 15:36
[2018-03-24 15:59] VITALS: BP 130/55
--- NOTE | 2018-03-24 17:10 | Internal Med Progress Note ---
Subjective Date of Service: Mar 24, 2018 Physician Name Juan Dutta Attending Physician Yonathan Mendoza MD Current Medications Medications (Trade) Dose Ordered Sig/Ibrahima Route PRN Reason Start Time Stop Time Status Last Admin Dose Admin Acetaminophen (Tylenol) 650 mg Q4H PRN ORAL For Pain and fever 03/24/18 14:12 04/23/18 14:11 Albuterol/ Ipratropium (Albuterol/ Ipratropium) 3 ml Q4H PRN HHN Shortness of Breath 03/23/18 00:15 03/25/18 16:05 Amiodarone HCl (Cordarone) 200 mg DAILY ORAL 03/24/18 09:00 04/21/18 20:59 03/24/18 08:53 Apixaban (Eliquis) 5 mg Q12HR ORAL 03/23/18 09:00 04/21/18 20:59 03/24/18 08:54 Dextrose (Dextrose 50%) 25 ml Q30M PRN IV Hypoglycemia 03/22/18 23:15 04/19/18 16:05 Dextrose (Dextrose 50%) 50 ml Q30M PRN IV Hypoglycemia 03/22/18 23:15 04/19/18 16:05 Diltiazem HCl (Cardizem) 90 mg EVERY 8 HOURS ORAL 03/23/18 06:00 04/21/18 21:59 03/24/18 13:37 Furosemide (Lasix) 40 mg EVERY 8 HOURS IV 03/24/18 14:00 04/21/18 20:59 03/24/18 13:37 Lorazepam (Ativan) 2 mg Q6H PRN ORAL For Anxiety 03/23/18 04:15 03/27/18 16:06 Mirtazapine (Remeron) 15 mg BEDTIME ORAL 03/23/18 21:00 04/19/18 20:59 03/23/18 20:47 Ondansetron HCl (Zofran) 4 mg Q6H PRN IVP Nausea & Vomiting 03/23/18 04:15 04/19/18 16:06 Pantoprazole (Protonix) 40 mg BIAC ORAL 03/23/18 06:30 04/19/18 08:59 03/24/18 16:51 Polyethylene Glycol (Miralax) 17 gm DAILYPRN PRN ORAL Constipation 03/23/18 16:15 04/21/18 16:06 Risperidone (RisperDAL) 2 mg BEDTIME ORAL 03/23/18 21:00 04/19/18 20:59 03/23/18 20:47 Temazepam (Restoril) 15 mg HSPRN PRN ORAL Insomnia 03/23/18 21:00 03/27/18 20:59 Allergies: Coded Allergies: PIPERACILLIN (Unverified Allergy, Unknown, 03/10/18) TAZOBACTAM (Unverified Allergy, Unknown, 03/10/18) ROS Limited/Unobtainable: No Constitutional: Reports: no symptoms HEENT: Reports: no symptoms Cardiovascular: Reports: no symptoms Respiratory: Reports: no symptoms Gastrointestinal/Abdominal: Reports: no symptoms Genitourinary: Reports: no symptoms Neurologic/Psychiatric: Reports: no symptoms Subjective 77 YO F admitted with shortness of breath. Now CHF. Cover for Int Med-Dr Mendoza. Objective Last Vital Signs Date Time Temp Pulse Resp B/P (MAP) Pulse Ox O2 Delivery O2 Flow Rate FiO2 03/24/18 15:59 98.2 62 20 130/55 (80) 99 98.2 03/24/18 09:00 Venturi Mask 10.0 03/24/18 07:18 36 Laboratory Tests Test 03/24/18 06:00 White Blood Count 10.3 K/UL (4.8-10.8) Red Blood Count 3.85 M/UL (4.20-5.40) L Hemoglobin 11.2 G/DL (12.0-16.0) L Hematocrit 34.0 % (37.0-47.0) L Mean Corpuscular Volume 88 FL (80-99) Mean Corpuscular Hemoglobin 29.1 PG (27.0-31.0) Mean Corpuscular Hemoglobin Concent 33.0 G/DL (32.0-36.0) Red Cell Distribution Width 14.7 % (11.6-14.8) Platelet Count 163 K/UL (150-450) Mean Platelet Volume 6.9 FL (6.5-10.1) Neutrophils (%) (Auto) 76.1 % (45.0-75.0) H Lymphocytes (%) (Auto) 10.4 % (20.0-45.0) L Monocytes (%) (Auto) 9.6 % (1.0-10.0) Eosinophils (%) (Auto) 3.2 % (0.0-3.0) H Basophils (%) (Auto) 0.7 % (0.0-2.0) Sodium Level 141 MMOL/L (136-145) Potassium Level 3.6 MMOL/L (3.5-5.1) Chloride Level 97 MMOL/L (98-107) L Carbon Dioxide Level > 45 MMOL/L (21-32) *H Blood Urea Nitrogen 13 mg/dL (7-18) Creatinine 0.6 MG/DL (0.55-1.30) Estimat Glomerular Filtration Rate mL/min (>60) Glucose Level 102 MG/DL (74-106) Calcium Level 8.3 MG/DL (8.5-10.1) L Intake and Output 03/23/18 03/24/18 19:00 07:00 Intake Total 960 ml 780 ml Balance 960 ml 780 ml Intake Oral 960 ml 780 ml # Voids 4 3 # Bowel Movements 1 1 Objective General Appearance: WD/WN, no apparent distress, alert EENT: PERRL/EOMI, normal ENT inspection Neck: non-tender, normal alignment, supple, normal inspection Cardiovascular: normal peripheral pulses, normal rate, no gallop/murmur, no JVD , irregularly irregular Respiratory/Chest: crackles/rales, rhonchi - bilaterally, expiratory wheezing Abdomen: normal bowel sounds, non tender, soft, no organomegaly, no mass Extremities: normal range of motion 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 See cardiology note. Continue lasix. Await echocardiogram. EP cardiology consult-Dr Milian (3) Hypoxia (4) Dyspnea Assessment & Plan: Due to CHF (5) COPD (chronic obstructive pulmonary disease) (6) HTN (hypertension) Assessment & Plan: Continue cardizem (7) Atrial flutter Assessment & Plan: Continue amiodarone. See cardiology note. (8) Seizure disorder (9) Major depression (10) H/O ETOH abuse (11) Pacemaker Status: progressing Juan Dutta MD Mar 24, 2018 17:10
--- NOTE | 2018-03-24 19:43 | Cardiology Report ---
APPROVED REPORT EKG Measurement Heart [id number] Sinus rhythm with 1st degree AV block Right axis deviation Low voltage QRS Cannot rule out Anterior infarct, age undetermined Abnormal ECG
[2018-03-24 20:00] VITALS: BP 122/54
--- NOTE | 2018-03-24 21:47 | General Progress Note ---
Assessment/Plan Problem List: (1) Dementia ICD Codes: F03.90 - Dementia SNOMED: 64691981 (2) Bipolar depression ICD Codes: F31.30 - Bipolar disorder, current episode depressed, mild or moderate severity, unspecified SNOMED: 08689013 Assessment/Plan risperdal 2mg qhs remeron 15mg qhs ativan prn Subjective Neurologic/Psychiatric: Reports: anxiety, depressed, emotional problems Allergies: Coded Allergies: PIPERACILLIN (Unverified Allergy, Unknown, 03/10/18) TAZOBACTAM (Unverified Allergy, Unknown, 03/10/18) Subjective "I am miserable Objective Last 24 Hour Vital Signs Date Time Temp Pulse Resp B/P (MAP) Pulse Ox O2 Delivery O2 Flow Rate FiO2 03/24/18 20:02 Nasal Cannula 3.0 32 03/24/18 20:02 60 18 Nasal Cannula 3.0 32 03/24/18 20:00 97.3 60 18 122/54 (76) 98 97.3 03/24/18 20:00 60 03/24/18 16:00 60 03/24/18 15:59 98.2 62 20 130/55 (80) 99 98.2 03/24/18 13:39 98.2 03/24/18 13:37 105 115/62 03/24/18 12:00 98.2 105 20 115/62 (79) 99 98.2 03/24/18 12:00 68 03/24/18 09:00 Venturi Mask 10.0 03/24/18 08:00 77 03/24/18 08:00 98.4 63 18 122/44 (70) 100 98.4 03/24/18 07:18 Nasal Cannula 4.0 36 03/24/18 07:18 60 18 Nasal Cannula 4.0 36 03/24/18 05:41 75 132/60 03/24/18 04:00 98.9 99 18 136/75 (95) 99 98.9 03/24/18 03:29 64 03/23/18 23:36 98.8 97 19 133/76 (95) 99 98.8 03/23/18 23:30 74 03/23/18 22:32 115 142/76 Intake and Output 03/23/18 03/24/18 19:00 07:00 Intake Total 960 ml 780 ml Balance 960 ml 780 ml Intake Oral 960 ml 780 ml # Voids 4 3 # Bowel Movements 1 1 Laboratory Tests 03/24/18 06:00: White Blood Count 10.3, Red Blood Count 3.85L, Hemoglobin 11.2L, Hematocrit 34.0L, Mean Corpuscular Volume 88, Mean Corpuscular Hemoglobin 29.1, Mean Corpuscular Hemoglobin Concent 33.0, Red Cell Distribution Width 14.7, Platelet Count 163, Mean Platelet Volume 6.9, Neutrophils (%) (Auto) 76.1H, Lymphocytes ( %) (Auto) 10.4L, Monocytes (%) (Auto) 9.6, Eosinophils (%) (Auto) 3.2H, Basophils (%) (Auto) 0.7, Sodium Level 141, Potassium Level 3.6, Chloride Level 97L, Carbon Dioxide Level > 45*H, Blood Urea Nitrogen 13, Creatinine 0.6, Estimat Glomerular Filtration Rate , Glucose Level 102, Calcium Level 8.3L Height (Feet): 5 Height (Inches): 7.00 Weight (Pounds): 210 General Appearance: no apparent distress, alert, confused Luiz Morrison MD Mar 24, 2018 21:47
--- NOTE | 2018-03-24 21:54 | Cardiology Progress Note ---
Assessment/Plan Status: stable Assessment/Plan (1) Respiratory failure, acute (2) Pulmonary edema (4) Seizure disorder (5) Major depression (6) Gout (7) Congestive heart failure (8) Cardiomegaly Plan: Avoid sedatives Elevated BNP and edema on chest x ray Mild diuresis -> Transitioned to PO lasix 40 TID Physical therapy/ambulate Continue cardizem Continue eliquis Continue amiodarone per Electrophysiology -Dr. Milian Daily labs and weights Monitor urine output and renal function Serial CXR BiPAP prn Dispo planning Subjective Cardiovascular: Reports: no symptoms Respiratory: Reports: no symptoms Gastrointestinal/Abdominal: Reports: no symptoms Genitourinary: Reports: no symptoms Subjective No acute events, vitals stable, HR controlled, urine output 1100cc, on 3L NC, no distress, no complaints. Amiodarone started for AFIB, changed to lasix 40 q8 Objective Last 24 Hour Vital Signs Date Time Temp Pulse Resp B/P (MAP) Pulse Ox O2 Delivery O2 Flow Rate FiO2 03/24/18 21:00 Nasal Cannula 3.0 03/24/18 20:02 Nasal Cannula 3.0 32 03/24/18 20:02 60 18 Nasal Cannula 3.0 32 03/24/18 20:00 97.3 60 18 122/54 (76) 98 97.3 03/24/18 20:00 60 03/24/18 16:00 60 03/24/18 15:59 98.2 62 20 130/55 (80) 99 98.2 03/24/18 13:39 98.2 03/24/18 13:37 105 115/62 03/24/18 12:00 98.2 105 20 115/62 (79) 99 98.2 03/24/18 12:00 68 03/24/18 09:00 Venturi Mask 10.0 03/24/18 08:00 77 03/24/18 08:00 98.4 63 18 122/44 (70) 100 98.4 03/24/18 07:18 Nasal Cannula 4.0 36 03/24/18 07:18 60 18 Nasal Cannula 4.0 36 03/24/18 05:41 75 132/60 03/24/18 04:00 98.9 99 18 136/75 (95) 99 98.9 03/24/18 03:29 64 03/23/18 23:36 98.8 97 19 133/76 (95) 99 98.8 03/23/18 23:30 74 03/23/18 22:32 115 142/76 General Appearance: no apparent distress, alert EENT: PERRL/EOMI, normal ENT inspection Neck: non-tender, normal alignment, supple, normal inspection, no JVD Rhythm: Afib Cardiovascular: normal peripheral pulses, normal rate, regularly irregular, tachycardia Respiratory/Chest: chest wall non-tender, no respiratory distress, no accessory muscle use, crackles/rales Abdomen: normal bowel sounds, non tender, soft, no organomegaly, no mass Neurologic: debit agent II-XII grossly normal, no motor/sensory deficits, alert Intake and Output 03/23/18 03/24/18 19:00 07:00 Intake Total 960 ml 780 ml Balance 960 ml 780 ml Intake Oral 960 ml 780 ml # Voids 4 3 # Bowel Movements 1 1 Laboratory Tests Test 03/24/18 06:00 White Blood Count 10.3 K/UL (4.8-10.8) Red Blood Count 3.85 M/UL (4.20-5.40) L Hemoglobin 11.2 G/DL (12.0-16.0) L Hematocrit 34.0 % (37.0-47.0) L Mean Corpuscular Volume 88 FL (80-99) Mean Corpuscular Hemoglobin 29.1 PG (27.0-31.0) Mean Corpuscular Hemoglobin Concent 33.0 G/DL (32.0-36.0) Red Cell Distribution Width 14.7 % (11.6-14.8) Platelet Count 163 K/UL (150-450) Mean Platelet Volume 6.9 FL (6.5-10.1) Neutrophils (%) (Auto) 76.1 % (45.0-75.0) H Lymphocytes (%) (Auto) 10.4 % (20.0-45.0) L Monocytes (%) (Auto) 9.6 % (1.0-10.0) Eosinophils (%) (Auto) 3.2 % (0.0-3.0) H Basophils (%) (Auto) 0.7 % (0.0-2.0) Sodium Level 141 MMOL/L (136-145) Potassium Level 3.6 MMOL/L (3.5-5.1) Chloride Level 97 MMOL/L (98-107) L Carbon Dioxide Level > 45 MMOL/L (21-32) *H Blood Urea Nitrogen 13 mg/dL (7-18) Creatinine 0.6 MG/DL (0.55-1.30) Estimat Glomerular Filtration Rate mL/min (>60) Glucose Level 102 MG/DL (74-106) Calcium Level 8.3 MG/DL (8.5-10.1) L Josue Wakefield MD Mar 24, 2018 21:54
[2018-03-25] VITALS: BP 130/45
[2018-03-25 04:00] VITALS: BP 128/65
[2018-03-25] MEDS: dilTIAZem HCl 90mg tab ORAL SCH ×3 (06:37→21:17)
[2018-03-25 09:00] VITALS: BP 116/47
--- NOTE | 2018-03-25 09:22 | Cardiology Progress Note ---
Assessment/Plan Status: stable Assessment/Plan (1) Respiratory failure, acute (2) Pulmonary edema (4) Seizure disorder (5) Major depression (6) Gout (7) Congestive heart failure (8) Cardiomegaly Plan: Avoid sedatives Elevated BNP and edema on chest x ray Mild diuresis IV lasix 40 TID ---> Transition to PO Physical therapy/ambulate Continue cardizem Continue eliquis Continue amiodarone per Electrophysiology -Dr. Milian Daily labs and weights Monitor urine output and renal function Serial CXR BiPAP prn Dispo planning Subjective Cardiovascular: Reports: no symptoms Respiratory: Reports: no symptoms Gastrointestinal/Abdominal: Reports: no symptoms Genitourinary: Reports: no symptoms Subjective No acute events, vitals stable, HR controlled, urine output 1100cc, on 2L NC, no distress, no complaints. Amiodarone started for AFIB, changed to lasix 40 q8 Objective Last 24 Hour Vital Signs Date Time Temp Pulse Resp B/P (MAP) Pulse Ox O2 Delivery O2 Flow Rate FiO2 03/25/18 07:35 97 Nasal Cannula 2.0 28 03/25/18 07:35 Nasal Cannula 2.0 28 03/25/18 07:35 68 18 Nasal Cannula 2.0 28 03/25/18 06:37 64 122/63 03/25/18 04:00 60 03/25/18 04:00 98.1 77 19 128/65 (86) 97 98.1 03/25/18 00:00 61 03/25/18 00:00 97.2 83 19 130/45 (73) 95 97.2 03/24/18 21:53 60 122/54 03/24/18 21:00 Nasal Cannula 3.0 03/24/18 20:02 Nasal Cannula 3.0 32 03/24/18 20:02 60 18 Nasal Cannula 3.0 32 03/24/18 20:00 97.3 60 18 122/54 (76) 98 97.3 03/24/18 20:00 60 03/24/18 16:00 60 03/24/18 15:59 98.2 62 20 130/55 (80) 99 98.2 03/24/18 13:39 98.2 03/24/18 13:37 105 115/62 03/24/18 12:00 98.2 105 20 115/62 (79) 99 98.2 03/24/18 12:00 68 General Appearance: no apparent distress, alert EENT: PERRL/EOMI, normal ENT inspection, TMs normal Neck: non-tender, normal alignment, supple, normal inspection, no JVD Rhythm: NSR Cardiovascular: normal peripheral pulses, normal rate Respiratory/Chest: no respiratory distress, no accessory muscle use, crackles/ rales, rhonchi - bilaterally Abdomen: normal bowel sounds, non tender, soft Extremities: normal range of motion, non-tender, normal inspection 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
[2018-03-25 09:50] LABS: EOSINOPHILS % (AUTO) 2.9 % (0.0-3.0); HEMATOCRIT 38.6 % (37.0-47.0); HEMOGLOBIN 12.4 G/DL (12.0-16.0); LYMPHOCYTES % (AUTO) 9.7 % (20.0-45.0); MEAN CORPUSCULAR VOLUME 89 FL (80-99); MONOCYTES % (AUTO) 5.4 % (1.0-10.0); NEUTROPHILS % (AUTO) 80.9 % (45.0-75.0); PLATELET COUNT 161 K/UL (150-450); RED BLOOD COUNT 4.33 M/UL (4.20-5.40); RED CELL DISTRIBUTION WIDTH 14.7 % (11.6-14.8); WHITE BLOOD COUNT 10.2 K/UL (4.8-10.8)
--- NOTE | 2018-03-25 10:12 | Diagnostic Imaging Report ---
Indication: Shortness of breath Technique: One view of the chest Comparison: 03/23/2018 Findings: Interim slight improvement of interstitial and airspace disease in the right lung. Left basilar opacity appears equivocally slightly improved, but largely persists. Mild cardiomegaly persists Impression: Slight improvement of interstitial and airspace congestion on the right. Equivocally slightly improved left basilar opacity, likely mostly due to improving pleural fluid
[2018-03-25] MEDS: Eliquis 2.5mg tablet ORAL SCH ×2 (10:13→21:13)
[2018-03-25] MEDS: Amiodarone 200mg tab ORAL SCH (10:14)
[2018-03-25 10:46] LABS: ALANINE AMINOTRANSFERASE 21 U/L (12-78); ALBUMIN 2.9 G/DL (3.4-5.0); ALBUMIN/GLOBULIN RATIO 0.8 (1.0-2.7); ALKALINE PHOSPHATASE 58 U/L (46-116); ANION GAP 3 mmol/L (5-15); ASPARTATE AMINO TRANSFERASE 10 U/L (15-37); BILIRUBIN,TOTAL 0.6 MG/DL (0.2-1.0); BLOOD UREA NITROGEN 11 mg/dL (7-18); CALCIUM 8.5 MG/DL (8.5-10.1); CHLORIDE 95 MMOL/L (98-107); CREATININE 0.7 MG/DL (0.55-1.30); SODIUM 142 MMOL/L (136-145)
[2018-03-25 10:48] LABS: CARBON DIOXIDE > 45 MMOL/L (21-32)
--- NOTE | 2018-03-25 11:00 | Pulmonology Progress Note ---
Assessment/Plan Problems: (1) Respiratory failure, acute (2) Pulmonary edema (3) COPD (chronic obstructive pulmonary disease) (4) Seizure disorder (5) Major depression (6) Gout (7) Bipolar depression Assessment/Plan CXR reviewed, 03/25, slightly better respiratory treatment on Lasix to 40 q8 on Amiodarone f/u bun/ creatinine check BNP in am f/u cardiology recommendations dvt prophylaxis dc in am to snf Subjective ROS Limited/Unobtainable: No Constitutional: Reports: no symptoms HEENT: Repors: no symptoms Respiratory: Reports: no symptoms Allergies: Coded Allergies: PIPERACILLIN (Unverified Allergy, Unknown, 03/10/18) TAZOBACTAM (Unverified Allergy, Unknown, 03/10/18) Objective Last 24 Hour Vital Signs Date Time Temp Pulse Resp B/P (MAP) Pulse Ox O2 Delivery O2 Flow Rate FiO2 03/25/18 09:00 97.3 61 20 116/47 (70) 100 97.3 03/25/18 09:00 Nasal Cannula 3.0 03/25/18 07:35 97 Nasal Cannula 2.0 28 03/25/18 07:35 Nasal Cannula 2.0 28 03/25/18 07:35 68 18 Nasal Cannula 2.0 28 03/25/18 06:37 64 122/63 03/25/18 04:00 60 03/25/18 04:00 98.1 77 19 128/65 (86) 97 98.1 03/25/18 00:00 61 03/25/18 00:00 97.2 83 19 130/45 (73) 95 97.2 03/24/18 21:53 60 122/54 03/24/18 21:00 Nasal Cannula 3.0 03/24/18 20:02 Nasal Cannula 3.0 32 03/24/18 20:02 60 18 Nasal Cannula 3.0 32 03/24/18 20:00 97.3 60 18 122/54 (76) 98 97.3 03/24/18 20:00 60 03/24/18 16:00 60 03/24/18 15:59 98.2 62 20 130/55 (80) 99 98.2 03/24/18 13:39 98.2 03/24/18 13:37 105 115/62 03/24/18 12:00 98.2 105 20 115/62 (79) 99 98.2 03/24/18 12:00 68 Intake and Output 03/24/18 03/25/18 19:00 07:00 Intake Total 400 ml 480 ml Output Total 1100 ml 600 ml Balance -700 ml -120 ml Intake Oral 400 ml 480 ml Output Urine Total 1100 ml 600 ml # Voids 1 # Bowel Movements 1 General Appearance: WD/WN HEENT: normocephalic, anicteric Respiratory/Chest: chest wall non-tender, lungs clear Breasts: no masses Cardiovascular: normal peripheral pulses Abdomen: normal bowel sounds, soft, non tender Genitourinary: normal external genitalia Extremities: no cyanosis Skin: no rash 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 Lymphatic: no neck adenopathy Laboratory Tests 03/25/18 09:05: White Blood Count 10.2, Red Blood Count 4.33, Hemoglobin 12.4, Hematocrit 38.6, Mean Corpuscular Volume 89, Mean Corpuscular Hemoglobin 28.6, Mean Corpuscular Hemoglobin Concent 32.0, Red Cell Distribution Width 14.7, Platelet Count 161, Mean Platelet Volume 7.0, Neutrophils (%) (Auto) 80.9H, Lymphocytes (%) (Auto) 9.7L, Monocytes (%) (Auto) 5.4, Eosinophils (%) (Auto) 2.9, Basophils (%) (Auto ) 1.0, Sodium Level 142, Potassium Level 3.0L, Chloride Level 95L, Carbon Dioxide Level > 45*H, Anion Gap 3L, Blood Urea Nitrogen 11, Creatinine 0.7, Estimat Glomerular Filtration Rate , Glucose Level 139H, Calcium Level 8.5, Total Bilirubin 0.6, Aspartate Amino Transf (AST/SGOT) 10L, Alanine Aminotransferase (ALT/SGPT) 21, Alkaline Phosphatase 58, Pro-B-Type Natriuretic Peptide 1489H, Total Protein 6.5, Albumin 2.9L, Globulin 3.6, Albumin/Globulin Ratio 0.8L Current Medications Medications (Trade) Dose Ordered Sig/Ibrahima Route PRN Reason Start Time Stop Time Status Last Admin Dose Admin Acetaminophen (Tylenol) 650 mg Q4H PRN ORAL For Pain and fever 03/24/18 14:12 04/23/18 14:11 Albuterol/ Ipratropium (Albuterol/ Ipratropium) 3 ml Q4H PRN HHN Shortness of Breath 03/23/18 00:15 03/25/18 16:05 Amiodarone HCl (Cordarone) 200 mg DAILY ORAL 03/24/18 09:00 04/21/18 20:59 03/25/18 10:14 Apixaban (Eliquis) 5 mg Q12HR ORAL 03/23/18 09:00 04/21/18 20:59 03/25/18 10:13 Dextrose (Dextrose 50%) 25 ml Q30M PRN IV Hypoglycemia 03/22/18 23:15 04/19/18 16:05 Dextrose (Dextrose 50%) 50 ml Q30M PRN IV Hypoglycemia 03/22/18 23:15 04/19/18 16:05 Diltiazem HCl (Cardizem) 90 mg EVERY 8 HOURS ORAL 03/23/18 06:00 04/21/18 21:59 03/25/18 06:37 Furosemide (Lasix) 40 mg EVERY 8 HOURS IV 03/24/18 14:00 04/21/18 20:59 03/25/18 07:11 Lorazepam (Ativan) 2 mg Q6H PRN ORAL For Anxiety 03/23/18 04:15 03/27/18 16:06 Mirtazapine (Remeron) 15 mg BEDTIME ORAL 03/23/18 21:00 04/19/18 20:59 03/24/18 20:43 Ondansetron HCl (Zofran) 4 mg Q6H PRN IVP Nausea & Vomiting 03/23/18 04:15 04/19/18 16:06 Pantoprazole (Protonix) 40 mg BIAC ORAL 03/23/18 06:30 04/19/18 08:59 03/25/18 06:37 Polyethylene Glycol (Miralax) 17 gm DAILYPRN PRN ORAL Constipation 03/23/18 16:15 04/21/18 16:06 Risperidone (RisperDAL) 2 mg BEDTIME ORAL 03/23/18 21:00 04/19/18 20:59 03/24/18 20:41 Temazepam (Restoril) 15 mg HSPRN PRN ORAL Insomnia 03/23/18 21:00 03/27/18 20:59 03/25/18 02:27 Mendel Sierra MD Mar 25, 2018 11:00
--- NOTE | 2018-03-25 11:02 | Internal Med Progress Note ---
Subjective Date of Service: Mar 25, 2018 Physician Name Dutta,Juan Attending Physician Yonathan Mendoza MD Current Medications Medications (Trade) Dose Ordered Sig/Ibrahima Route PRN Reason Start Time Stop Time Status Last Admin Dose Admin Acetaminophen (Tylenol) 650 mg Q4H PRN ORAL For Pain and fever 03/24/18 14:12 04/23/18 14:11 Albuterol/ Ipratropium (Albuterol/ Ipratropium) 3 ml Q4H PRN HHN Shortness of Breath 03/23/18 00:15 03/25/18 16:05 Amiodarone HCl (Cordarone) 200 mg DAILY ORAL 03/24/18 09:00 04/21/18 20:59 03/25/18 10:14 Apixaban (Eliquis) 5 mg Q12HR ORAL 03/23/18 09:00 04/21/18 20:59 03/25/18 10:13 Dextrose (Dextrose 50%) 25 ml Q30M PRN IV Hypoglycemia 03/22/18 23:15 04/19/18 16:05 Dextrose (Dextrose 50%) 50 ml Q30M PRN IV Hypoglycemia 03/22/18 23:15 04/19/18 16:05 Diltiazem HCl (Cardizem) 90 mg EVERY 8 HOURS ORAL 03/23/18 06:00 04/21/18 21:59 03/25/18 06:37 Furosemide (Lasix) 40 mg EVERY 8 HOURS IV 03/24/18 14:00 04/21/18 20:59 03/25/18 07:11 Lorazepam (Ativan) 2 mg Q6H PRN ORAL For Anxiety 03/23/18 04:15 03/27/18 16:06 Mirtazapine (Remeron) 15 mg BEDTIME ORAL 03/23/18 21:00 04/19/18 20:59 03/24/18 20:43 Ondansetron HCl (Zofran) 4 mg Q6H PRN IVP Nausea & Vomiting 03/23/18 04:15 04/19/18 16:06 Pantoprazole (Protonix) 40 mg BIAC ORAL 03/23/18 06:30 04/19/18 08:59 03/25/18 06:37 Polyethylene Glycol (Miralax) 17 gm DAILYPRN PRN ORAL Constipation 03/23/18 16:15 04/21/18 16:06 Risperidone (RisperDAL) 2 mg BEDTIME ORAL 03/23/18 21:00 04/19/18 20:59 03/24/18 20:41 Temazepam (Restoril) 15 mg HSPRN PRN ORAL Insomnia 03/23/18 21:00 03/27/18 20:59 03/25/18 02:27 Allergies: Coded Allergies: PIPERACILLIN (Unverified Allergy, Unknown, 03/10/18) TAZOBACTAM (Unverified Allergy, Unknown, 03/10/18) ROS Limited/Unobtainable: No Constitutional: Reports: no symptoms HEENT: Reports: no symptoms Cardiovascular: Reports: no symptoms Respiratory: Reports: no symptoms Gastrointestinal/Abdominal: Reports: no symptoms Genitourinary: Reports: no symptoms Neurologic/Psychiatric: Reports: no symptoms Subjective 77 YO F admitted with shortness of breath. Now CHF. Cover for Int Med-Dr Mendoza. More drowsy today. Objective Last Vital Signs Date Time Temp Pulse Resp B/P (MAP) Pulse Ox O2 Delivery O2 Flow Rate FiO2 03/25/18 09:00 97.3 61 20 116/47 (70) 100 97.3 03/25/18 09:00 Nasal Cannula 3.0 03/25/18 07:35 28 Laboratory Tests Test 03/25/18 09:05 White Blood Count 10.2 K/UL (4.8-10.8) Red Blood Count 4.33 M/UL (4.20-5.40) Hemoglobin 12.4 G/DL (12.0-16.0) Hematocrit 38.6 % (37.0-47.0) Mean Corpuscular Volume 89 FL (80-99) Mean Corpuscular Hemoglobin 28.6 PG (27.0-31.0) Mean Corpuscular Hemoglobin Concent 32.0 G/DL (32.0-36.0) Red Cell Distribution Width 14.7 % (11.6-14.8) Platelet Count 161 K/UL (150-450) Mean Platelet Volume 7.0 FL (6.5-10.1) Neutrophils (%) (Auto) 80.9 % (45.0-75.0) H Lymphocytes (%) (Auto) 9.7 % (20.0-45.0) L Monocytes (%) (Auto) 5.4 % (1.0-10.0) Eosinophils (%) (Auto) 2.9 % (0.0-3.0) Basophils (%) (Auto) 1.0 % (0.0-2.0) Sodium Level 142 MMOL/L (136-145) Potassium Level 3.0 MMOL/L (3.5-5.1) L Chloride Level 95 MMOL/L (98-107) L Carbon Dioxide Level > 45 MMOL/L (21-32) *H Anion Gap 3 mmol/L (5-15) L Blood Urea Nitrogen 11 mg/dL (7-18) Creatinine 0.7 MG/DL (0.55-1.30) Estimat Glomerular Filtration Rate mL/min (>60) Glucose Level 139 MG/DL (74-106) H Calcium Level 8.5 MG/DL (8.5-10.1) Total Bilirubin 0.6 MG/DL (0.2-1.0) Aspartate Amino Transf (AST/SGOT) 10 U/L (15-37) L Alanine Aminotransferase (ALT/SGPT) 21 U/L (12-78) Alkaline Phosphatase 58 U/L (46-116) Pro-B-Type Natriuretic Peptide 1489 pg/mL (0-125) H Total Protein 6.5 G/DL (6.4-8.2) Albumin 2.9 G/DL (3.4-5.0) L Globulin 3.6 g/dL Albumin/Globulin Ratio 0.8 (1.0-2.7) L Intake and Output 03/24/18 03/25/18 19:00 07:00 Intake Total 400 ml 480 ml Output Total 1100 ml 600 ml Balance -700 ml -120 ml Intake Oral 400 ml 480 ml Output Urine Total 1100 ml 600 ml # Voids 1 # Bowel Movements 1 Objective General Appearance: WD/WN, no apparent distress, alert EENT: PERRL/EOMI, normal ENT inspection Neck: non-tender, normal alignment, supple, normal inspection Cardiovascular: normal peripheral pulses, normal rate, no gallop/murmur, no JVD , irregularly irregular Respiratory/Chest: crackles/rales, rhonchi - bilaterally, expiratory wheezing Abdomen: normal bowel sounds, non tender, soft, no organomegaly, no mass Extremities: normal range of motion Neurologic: brake linings coater II-XII grossly normal, no motor/sensory deficits Assessment/Plan Problem List: (1) Schizophrenia (2) CHF (congestive heart failure) Assessment & Plan: BNP > 3000. See cardiology note-[place]. Continue lasix IV for 1 more day then change to oral. EP cardiology consult-Dr Milian (3) Hypoxia (4) Dyspnea Assessment & Plan: Due to CHF (5) COPD (chronic obstructive pulmonary disease) (6) HTN (hypertension) Assessment & Plan: Continue cardizem (7) Atrial flutter Assessment & Plan: Continue amiodarone. See cardiology note. (8) Seizure disorder (9) Major depression (10) H/O ETOH abuse (11) Pacemaker Status: progressing Assessment/Plan Discharge plan: D/C to Rehab on [facility] 03/26/18 Juan Dutta MD Mar 25, 2018 11:02
[2018-03-25 12:00] VITALS: BP 115/47
[2018-03-25] MEDS ORDERED: LORazepam 1mg tab ORAL PRN (12:00)
--- NOTE | 2018-03-25 12:58 | General Progress Note ---
Assessment/Plan Problem List: (1) Dementia ICD Codes: F03.90 - Dementia SNOMED: 46609800 (2) Bipolar depression ICD Codes: F31.30 - Bipolar disorder, current episode depressed, mild or moderate severity, unspecified SNOMED: 63727424 Status: progressing Assessment/Plan risperdal 2mg qhs restoril 15mg qhs/prn decrease ativan prn Subjective Date patient seen: Mar 25, 2018 Neurologic/Psychiatric: Reports: anxiety Allergies: Coded Allergies: PIPERACILLIN (Unverified Allergy, Unknown, 03/10/18) TAZOBACTAM (Unverified Allergy, Unknown, 03/10/18) Subjective the pt didn't sleep till 3 am the pt was drowsy today got a dose of Restoril Objective Last 24 Hour Vital Signs Date Time Temp Pulse Resp B/P (MAP) Pulse Ox O2 Delivery O2 Flow Rate FiO2 03/25/18 12:00 98.0 61 20 115/47 (69) 98 98.0 03/25/18 09:00 97.3 61 20 116/47 (70) 100 97.3 03/25/18 09:00 Nasal Cannula 3.0 03/25/18 08:00 65 03/25/18 07:35 97 Nasal Cannula 2.0 28 03/25/18 07:35 Nasal Cannula 2.0 28 03/25/18 07:35 68 18 Nasal Cannula 2.0 28 03/25/18 06:37 64 122/63 03/25/18 04:00 60 03/25/18 04:00 98.1 77 19 128/65 (86) 97 98.1 03/25/18 00:00 61 03/25/18 00:00 97.2 83 19 130/45 (73) 95 97.2 03/24/18 21:53 60 122/54 03/24/18 21:00 Nasal Cannula 3.0 03/24/18 20:02 Nasal Cannula 3.0 32 03/24/18 20:02 60 18 Nasal Cannula 3.0 32 03/24/18 20:00 97.3 60 18 122/54 (76) 98 97.3 03/24/18 20:00 60 03/24/18 16:00 60 03/24/18 15:59 98.2 62 20 130/55 (80) 99 98.2 03/24/18 13:39 98.2 10/23/18 13:37 105 115/62 Intake and Output 03/24/18 03/25/18 19:00 07:00 Intake Total 400 ml 480 ml Output Total 1100 ml 600 ml Balance -700 ml -120 ml Intake Oral 400 ml 480 ml Output Urine Total 1100 ml 600 ml # Voids 1 # Bowel Movements 1 Laboratory Tests 03/25/18 09:05: White Blood Count 10.2, Red Blood Count 4.33, Hemoglobin 12.4, Hematocrit 38.6, Mean Corpuscular Volume 89, Mean Corpuscular Hemoglobin 28.6, Mean Corpuscular Hemoglobin Concent 32.0, Red Cell Distribution Width 14.7, Platelet Count 161, Mean Platelet Volume 7.0, Neutrophils (%) (Auto) 80.9H, Lymphocytes (%) (Auto) 9.7L, Monocytes (%) (Auto) 5.4, Eosinophils (%) (Auto) 2.9, Basophils (%) (Auto ) 1.0, Sodium Level 142, Potassium Level 3.0L, Chloride Level 95L, Carbon Dioxide Level > 45*H, Anion Gap 3L, Blood Urea Nitrogen 11, Creatinine 0.7, Estimat Glomerular Filtration Rate , Glucose Level 139H, Calcium Level 8.5, Total Bilirubin 0.6, Aspartate Amino Transf (AST/SGOT) 10L, Alanine Aminotransferase (ALT/SGPT) 21, Alkaline Phosphatase 58, Pro-B-Type Natriuretic Peptide 1489H, Total Protein 6.5, Albumin 2.9L, Globulin 3.6, Albumin/Globulin Ratio 0.8L Height (Feet): 5 Height (Inches): 7.00 Weight (Pounds): 191 General Appearance: no apparent distress, alert, confused - knows that she was in the hospital Luiz Morrison MD Mar 25, 2018 12:58
[2018-03-25 16:00] VITALS: BP 114/36
--- NOTE | 2018-03-25 16:19 | Cardiac Electrophysiology PN ---
Assessment/Plan Assessment/Plan 1. Atrial flutter with rapid ventricular response. In SR on Cardizem 90 mg every 8 hours and apixaban 5 mg, amiodarone 200 mg daily 2. S/P Medtronic Micra Leadless pacer implantation at [facility] 01/2016 3. Congestive heart failure. On Lasix 40 mg iv q [address] Wakefield. 4. Hypertension on Cardizem and Lasix. 5. Psychosis and schizophrenia on Risperdal. DW RN Subjective Subjective In SR with occasional V paced. No CP or SOB. Objective Last 24 Hour Vital Signs Date Time Temp Pulse Resp B/P (MAP) Pulse Ox O2 Delivery O2 Flow Rate FiO2 03/25/18 13:26 75 115/50 03/25/18 12:00 98.0 61 20 115/47 (69) 98 98.0 03/25/18 12:00 60 03/25/18 09:00 97.3 61 20 116/47 (70) 100 97.3 03/25/18 09:00 Nasal Cannula 3.0 03/25/18 08:00 65 03/25/18 07:35 97 Nasal Cannula 2.0 28 03/25/18 07:35 Nasal Cannula 2.0 28 03/25/18 07:35 68 18 Nasal Cannula 2.0 28 03/25/18 06:37 64 122/63 03/25/18 04:00 60 03/25/18 04:00 98.1 77 19 128/65 (86) 97 98.1 03/25/18 00:00 61 03/25/18 00:00 97.2 83 19 130/45 (73) 95 97.2 03/24/18 21:53 60 122/54 03/24/18 21:00 Nasal Cannula 3.0 03/24/18 20:02 Nasal Cannula 3.0 32 03/24/18 20:02 60 18 Nasal Cannula 3.0 32 03/24/18 20:00 97.3 60 18 122/54 (76) 98 97.3 03/24/18 20:00 60 Intake and Output 03/24/18 03/25/18 19:00 07:00 Intake Total 400 ml 480 ml Output Total 1100 ml 600 ml Balance -700 ml -120 ml Intake Oral 400 ml 480 ml Output Urine Total 1100 ml 600 ml # Voids 1 # Bowel Movements 1 Laboratory Tests Test 03/25/18 09:05 White Blood Count 10.2 K/UL (4.8-10.8) Red Blood Count 4.33 M/UL (4.20-5.40) Hemoglobin 12.4 G/DL (12.0-16.0) Hematocrit 38.6 % (37.0-47.0) Mean Corpuscular Volume 89 FL (80-99) Mean Corpuscular Hemoglobin 28.6 PG (27.0-31.0) Mean Corpuscular Hemoglobin Concent 32.0 G/DL (32.0-36.0) Red Cell Distribution Width 14.7 % (11.6-14.8) Platelet Count 161 K/UL (150-450) Mean Platelet Volume 7.0 FL (6.5-10.1) Neutrophils (%) (Auto) 80.9 % (45.0-75.0) H Lymphocytes (%) (Auto) 9.7 % (20.0-45.0) L Monocytes (%) (Auto) 5.4 % (1.0-10.0) Eosinophils (%) (Auto) 2.9 % (0.0-3.0) Basophils (%) (Auto) 1.0 % (0.0-2.0) Sodium Level 142 MMOL/L (136-145) Potassium Level 3.0 MMOL/L (3.5-5.1) L Chloride Level 95 MMOL/L (98-107) L Carbon Dioxide Level > 45 MMOL/L (21-32) *H Anion Gap 3 mmol/L (5-15) L Blood Urea Nitrogen 11 mg/dL (7-18) Creatinine 0.7 MG/DL (0.55-1.30) Estimat Glomerular Filtration Rate mL/min (>60) Glucose Level 139 MG/DL (74-106) H Calcium Level 8.5 MG/DL (8.5-10.1) Total Bilirubin 0.6 MG/DL (0.2-1.0) Aspartate Amino Transf (AST/SGOT) 10 U/L (15-37) L Alanine Aminotransferase (ALT/SGPT) 21 U/L (12-78) Alkaline Phosphatase 58 U/L (46-116) Pro-B-Type Natriuretic Peptide 1489 pg/mL (0-125) H Total Protein 6.5 G/DL (6.4-8.2) Albumin 2.9 G/DL (3.4-5.0) L Globulin 3.6 g/dL Albumin/Globulin Ratio 0.8 (1.0-2.7) L Objective HEAD AND NECK: No JVD. LUNGS: Clear. CARDIOVASCULAR: Regular. S1 and S2 with no gallop or murmur. ABDOMEN: Soft. EXTREMITIES: No pitting edema. Yohan Milian MD Mar 25, 2018 16:19
[2018-03-25 20:00] VITALS: BP 122/63
[2018-03-26] VITALS: BP 114/54
[2018-03-26 04:00] VITALS: BP 109/58
[2018-03-26] MEDS: dilTIAZem HCl 90mg tab ORAL SCH ×2 (05:56→14:00)
[2018-03-26 08:00] VITALS: BP 134/53
[2018-03-26 08:21] LABS: BASOPHILS % (AUTO) 0.3 % (0.0-2.0); EOSINOPHILS % (AUTO) 3.1 % (0.0-3.0); HEMATOCRIT 34.9 % (37.0-47.0); HEMOGLOBIN 11.5 G/DL (12.0-16.0); LYMPHOCYTES % (AUTO) 10.5 % (20.0-45.0); MEAN CORPUSCULAR VOLUME 88 FL (80-99); MONOCYTES % (AUTO) 5.5 % (1.0-10.0); NEUTROPHILS % (AUTO) 80.7 % (45.0-75.0); PLATELET COUNT 144 K/UL (150-450); RED BLOOD COUNT 3.95 M/UL (4.20-5.40); RED CELL DISTRIBUTION WIDTH 15.3 % (11.6-14.8); WHITE BLOOD COUNT 8.9 K/UL (4.8-10.8)
[2018-03-26] MEDS: Amiodarone 200mg tab ORAL SCH (08:22)
[2018-03-26] MEDS: Eliquis 2.5mg tablet ORAL SCH (08:22)
[2018-03-26 08:39] LABS: ALANINE AMINOTRANSFERASE 17 U/L (12-78); ALBUMIN 2.5 G/DL (3.4-5.0); ALBUMIN/GLOBULIN RATIO 0.8 (1.0-2.7); ALKALINE PHOSPHATASE 52 U/L (46-116); ANION GAP 0 mmol/L (5-15); ASPARTATE AMINO TRANSFERASE 10 U/L (15-37); BILIRUBIN,TOTAL 0.5 MG/DL (0.2-1.0); BLOOD UREA NITROGEN 14 mg/dL (7-18); CALCIUM 8.1 MG/DL (8.5-10.1); CHLORIDE 97 MMOL/L (98-107); CREATININE 0.7 MG/DL (0.55-1.30); POTASSIUM 3.4 MMOL/L (3.5-5.1); SODIUM 142 MMOL/L (136-145)
[2018-03-26 08:42] LABS: CARBON DIOXIDE 44 MMOL/L (21-32)
[2018-03-26] MEDS ORDERED: RISPERDAL2 MG ORAL (11:23)
[2018-03-26] MEDS ORDERED: PACERONE200 MG ORAL (11:23)
[2018-03-26] MEDS ORDERED: FUROSEMIDE40 MG ORAL (11:28)
--- NOTE | 2018-03-26 11:35 | General Progress Note ---
Assessment/Plan Problem List: (1) Dementia ICD Codes: F03.90 - Dementia SNOMED: 71506368 (2) Bipolar depression ICD Codes: F31.30 - Bipolar disorder, current episode depressed, mild or moderate severity, unspecified SNOMED: [id number] Status: stable, progressing Assessment/Plan risperdal 2mg qhs restoril 15mg qhs/prn decrease ativan prn remeron 15mg qhs Subjective Date patient seen: Mar 26, 2018 Neurologic/Psychiatric: Reports: anxiety Allergies: Coded Allergies: PIPERACILLIN (Unverified Allergy, Unknown, 03/10/18) TAZOBACTAM (Unverified Allergy, Unknown, 03/10/18) Subjective the pt is sleeping better. the pt is more alert. she stated that she would like to go back to sniff. the pt is delusional and only oriented to year. Objective Last 24 Hour Vital Signs Date Time Temp Pulse Resp B/P (MAP) Pulse Ox O2 Delivery O2 Flow Rate FiO2 03/26/18 09:00 Nasal Cannula 3.0 03/26/18 08:00 65 03/26/18 08:00 97.4 82 20 134/53 (80) 100 03/26/18 05:56 100 127/60 03/26/18 04:00 98.0 89 20 109/58 (75) 96 03/26/18 04:00 99 03/26/18 00:00 79 03/26/18 00:00 99.1 61 19 114/54 (74) 95 03/25/18 21:17 81 122/63 03/25/18 21:00 Nasal Cannula 3.0 03/25/18 20:00 98.7 81 19 122/63 (82) 97 03/25/18 20:00 73 03/25/18 19:36 Nasal Cannula 2.0 28 03/25/18 19:35 95 Nasal Cannula 2.0 28 03/25/18 16:00 99.4 65 20 114/36 (62) 95 03/25/18 16:00 67 03/25/18 13:26 75 115/50 03/25/18 12:00 98.0 61 20 115/47 (69) 98 98.0 03/25/18 12:00 60 Intake and Output 03/25/18 03/26/18 19:00 07:00 Intake Total 840 ml 240 ml Output Total 800 ml 1200 ml Balance 40 ml -960 ml Intake Oral 840 ml 240 ml Output Urine Total 800 ml 1200 ml # Bowel Movements 1 Laboratory Tests 03/26/18 07:50: White Blood Count 8.9, Red Blood Count 3.95L, Hemoglobin 11.5L, Hematocrit 34.9L , Mean Corpuscular Volume 88, Mean Corpuscular Hemoglobin 29.0, Mean Corpuscular Hemoglobin Concent 32.8, Red Cell Distribution Width 15.3H, Platelet Count 144L, Mean Platelet Volume 7.1, Neutrophils (%) (Auto) 80.7H, Lymphocytes (%) (Auto) 10.5L, Monocytes (%) (Auto) 5.5, Eosinophils (%) (Auto) 3.1H, Basophils (%) (Auto) 0.3, Sodium Level 142, Potassium Level 3.4L, Chloride Level 97L, Carbon Dioxide Level 44*H, Anion Gap 0L, Blood Urea Nitrogen 14, Creatinine 0.7, Estimat Glomerular Filtration Rate , Glucose Level 128H, Calcium Level 8.1L, Total Bilirubin 0.5, Aspartate Amino Transf (AST/SGOT ) 10L, Alanine Aminotransferase (ALT/SGPT) 17, Alkaline Phosphatase 52, Pro-B- Type Natriuretic Peptide 1879H, Total Protein 5.8L, Albumin 2.5L, Globulin 3.3, Albumin/Globulin Ratio 0.8L Height (Feet): 5 Height (Inches): 7.00 Weight (Pounds): 191 General Appearance: alert, confused - only oriented to year Luiz Morrison MD Mar 26, 2018 11:35
--- NOTE | 2018-03-26 11:41 | Diagnostic Imaging Report ---
Indication: Dyspnea Comparison: 03/25/2018 A single view chest radiograph was obtained. Findings: Interstitial edema appears worse. Pulmonary vascularity and heart size are also prominent. Suspect a left pleural effusion. IMPRESSION: Slightly worsening CHF compared to the previous day.
[2018-03-26 12:00] VITALS: BP 130/75
--- NOTE | 2018-03-26 14:51 | Cardiac Electrophysiology PN ---
Assessment/Plan Assessment/Plan 1. Atrial flutter with rapid ventricular response. In SR on Cardizem 90 mg every 8 hours and apixaban 5 mg, amiodarone 200 mg daily 2. S/P Medtronic Micra Leadless pacer implantation at [facility] 01/2016 3. Congestive heart failure. On Lasix 40 mg iv q [address] Wakefield. 4. Hypertension on Cardizem and Lasix. 5. Psychosis and schizophrenia on Risperdal. DYLAN RN Subjective Subjective In SR. No CP or SOB. DC in progress to SNIF Objective Last 24 Hour Vital Signs Date Time Temp Pulse Resp B/P (MAP) Pulse Ox O2 Delivery O2 Flow Rate FiO2 03/26/18 09:00 Nasal Cannula 3.0 03/26/18 08:00 65 03/26/18 08:00 97.4 82 20 134/53 (80) 100 03/26/18 05:56 100 127/60 03/26/18 04:00 98.0 89 20 109/58 (75) 96 03/26/18 04:00 99 03/26/18 00:00 79 03/26/18 00:00 99.1 61 19 114/54 (74) 95 03/25/18 21:17 81 122/63 03/25/18 21:00 Nasal Cannula 3.0 03/25/18 20:00 98.7 81 19 122/63 (82) 97 03/25/18 20:00 73 03/25/18 19:36 Nasal Cannula 2.0 28 03/25/18 19:35 95 Nasal Cannula 2.0 28 03/25/18 16:00 99.4 65 20 114/36 (62) 95 03/25/18 16:00 67 Intake and Output 03/25/18 03/26/18 19:00 07:00 Intake Total 840 ml 240 ml Output Total 800 ml 1200 ml Balance 40 ml -960 ml Intake Oral 840 ml 240 ml Output Urine Total 800 ml 1200 ml # Bowel Movements 1 Laboratory Tests Test 03/26/18 07:50 White Blood Count 8.9 K/UL (4.8-10.8) Red Blood Count 3.95 M/UL (4.20-5.40) L Hemoglobin 11.5 G/DL (12.0-16.0) L Hematocrit 34.9 % (37.0-47.0) L Mean Corpuscular Volume 88 FL (80-99) Mean Corpuscular Hemoglobin 29.0 PG (27.0-31.0) Mean Corpuscular Hemoglobin Concent 32.8 G/DL (32.0-36.0) Red Cell Distribution Width 15.3 % (11.6-14.8) H Platelet Count 144 K/UL (150-450) L Mean Platelet Volume 7.1 FL (6.5-10.1) Neutrophils (%) (Auto) 80.7 % (45.0-75.0) H Lymphocytes (%) (Auto) 10.5 % (20.0-45.0) L Monocytes (%) (Auto) 5.5 % (1.0-10.0) Eosinophils (%) (Auto) 3.1 % (0.0-3.0) H Basophils (%) (Auto) 0.3 % (0.0-2.0) Sodium Level 142 MMOL/L (136-145) Potassium Level 3.4 MMOL/L (3.5-5.1) L Chloride Level 97 MMOL/L (98-107) L Carbon Dioxide Level 44 MMOL/L (21-32) *H Anion Gap 0 mmol/L (5-15) L Blood Urea Nitrogen 14 mg/dL (7-18) Creatinine 0.7 MG/DL (0.55-1.30) Estimat Glomerular Filtration Rate mL/min (>60) Glucose Level 128 MG/DL (74-106) H Calcium Level 8.1 MG/DL (8.5-10.1) L Total Bilirubin 0.5 MG/DL (0.2-1.0) Aspartate Amino Transf (AST/SGOT) 10 U/L (15-37) L Alanine Aminotransferase (ALT/SGPT) 17 U/L (12-78) Alkaline Phosphatase 52 U/L (46-116) Pro-B-Type Natriuretic Peptide 1879 pg/mL (0-125) H Total Protein 5.8 G/DL (6.4-8.2) L Albumin 2.5 G/DL (3.4-5.0) L Globulin 3.3 g/dL Albumin/Globulin Ratio 0.8 (1.0-2.7) L Objective HEAD AND NECK: No JVD. LUNGS: Clear. CARDIOVASCULAR: Regular. S1 and S2 with no gallop or murmur. ABDOMEN: Soft. EXTREMITIES: No pitting edema. Yohan Milian MD Mar 26, 2018 14:51
--- NOTE | 2018-03-27 12:57 | Discharge Summary ---
Discharge Summary Discharge Summary _ DATE OF ADMISSION: 03/20/2018 DATE OF DISCHARGE: 03/26/2018 CONSULTANTS: Dr. Yohan Sierra BRIEF HOSPITAL COURSE: Patient is a 77-year-old female, with past medical history significant for CHF, history of COPD as well as coronary artery disease, hypertension and morbid obesity, who was just recently discharged from [facility] to nursing facility. The patient presented to the hospital complaining of shortness of breath and hypoxemia. The patient was given Ambien the night prior and was found to be altered, and unresponsive. O2 saturation was low. She was subsequently transferred to [facility] for evaluation of hypoxemia and altered mental status. On evaluation at ED, patient was on nonrebreather mask with O2 saturation of 96. Blood work did not show any leukocytoses, hemoglobin and hematocrit were stable. BNP was elevated to > 3000, troponin was negative. Chest x-ray showed cardiomegaly with evidence of congestive heart failure, bilateral greater than right pleural effusions. She was then admitted for evaluation of acute respiratory failure with pulmonary edema and acute on chronic CHF. She was seen by bar porter. She was given IV diuresis. Patient has atrial fibrillation and was continued on Eliquis and Cardizem. Respiratory status was monitored. She was followed by a hot dimpling machine operator. She was given respiratory treatment. She was given supplemental O2, to keep pulse oximetry above 92%. Venous duplex of lower extremity was negative. The patient had episodes of atrial flutter with rapid ventricular response up to 150s. Resident Caregiver was consulted. Amiodarone 400 mg daily was added to his regimen. Patient status post Medtronic Micra leadless pacer implantation at [facility] on January 2016. Amiodarone was eventually decreased 200 mg daily. Patient was agitated and was yelling. Patient was delusional and endorsed depressed with anhedonia. She was seen by psychiatrist and was diagnosed with dementia and bipolar depression. She was given Risperdal and Remeron. Ativan prn. She was eventually tapered off Ventimask. She was saturating well on nasal cannula. Vital signs were stable. She was eventually discharged back to SNF. FINAL DIAGNOSES: Acute respiratory failure due to acute on chronic diastolic CHF Altered mental status/ acute toxic encephalopathy Atrial flutter with rapid ventricular response Bilateral pleural effusion Pulmonary edema Hypertension Psychosis and schizophrenia Seizure disorder Hypoxemia Bipolar depression Gout Cardiomegaly History of EtOH abuse Pacemaker DISPOSITION: [facility] was [facility] . DISCHARGE MEDICATIONS: Refer to Discharge Medication List. I have been assigned to dictate discharge summary on this account, and I was not involved in the patient's management. Delmi Gutierrez NP Mar 27, 2018 12:57
== END 2018-03-26 14:30 | DRG 291 ==
LOC: EDBD 01:14 → EDUNIT# 01:14 → EMR 01:38 → EDBEDREQ 02:13 → 2E 02:37 → EDBEDREQ 02:45 → 4E 03-22 16:23 → 2E 03-22 21:38
DX: I11.0 Hypertensive heart disease with heart failure (principal); J96.01 Acute respiratory failure with hypoxia; G92 Toxic encephalopathy; I48.92 Unspecified atrial flutter; I50.33 Acute on chronic diastolic (congestive) heart failure; J44.9 Chronic obstructive pulmonary disease, unspecified; G40.909 Epilepsy, unspecified, not intractable, without status epilepticus; F20.9 Schizophrenia, unspecified; F31.9 Bipolar disorder, unspecified; M10.9 Gout, unspecified; E66.01 Morbid (severe) obesity due to excess calories; I48.91 Unspecified atrial fibrillation; Z95.0 Presence of cardiac pacemaker; Z68.29 Body mass index [BMI] 29.0-29.9, adult
CPT/HCPCS: 36415; 71045; 80048; 80053; 80069; 81003; 82550; 82553; 82962; 83880; 84443; 84484; 85025; 93005; 93970; 94664; 94760; 96374; 99285; J8499

== ENCOUNTER 2018-04-04 04:41 | Inpatient (IN) | payer MEDICARE ==
[2018-04-04] VITALS (18 sets, daily range): BP systolic 72–159; BP diastolic 34–79
[~2018-04-04] VITALS: Ht 170.2 cm; Wt 86.2 kg
[~2018-04-04 04:41] MED LIST changes: +FUROSEMIDE40 MG ORAL; +PACERONE200 MG ORAL
--- NOTE | 2018-04-04 04:45 | Emergency Room Report ---
History of Present Illness General Chief Complaint: Chest Pain Source: Patient, EMS Present Illness HPI Patient presents with chest pain and dyspnea. This been going on for 2 days. It's worsened tonight. Paramedics found the patient with increased heart rate. Patient unable to describe CP or state how severe. Patient denies pain but not answer other questions. Non-ambulatory for 6 years H/O CHF Post pacemaker Post stents H/O schizophrenia and seizures Recent D/C 03/26: Acute respiratory failure due to acute on chronic diastolic CHF Altered mental status/ acute toxic encephalopathy Atrial flutter with rapid ventricular response Bilateral pleural effusion Pulmonary edema Hypertension Psychosis and schizophrenia Seizure disorder Hypoxemia Bipolar depression Gout Cardiomegaly History of EtOH abuse Pacemaker Allergies: Coded Allergies: PIPERACILLIN (Unverified Allergy, Unknown, 03/10/18) TAZOBACTAM (Unverified Allergy, Unknown, 03/10/18) Patient History Limited by: medical condition Past Medical History: see triage record, old chart reviewed Past Surgical History: PTCA, pacemaker, other - hip replacement Social History: Reports: alcohol use Social History Narrative from SNF Last Menstrual Period: n/a Now: No Reviewed Nursing Documentation: PMH: Agreed; PSxH: Agreed Nursing Documentation-PMH Hx Cardiac Problems: Yes Hx Hypertension: Yes Hx Pacemaker: No - stent Hx Asthma: No Hx COPD: Yes Hx Diabetes: No Hx Cancer: No Hx Gastrointestinal Problems: Yes Hx Dialysis: No Hx Neurological Problems: Yes Hx Cerebrovascular Accident: Yes Hx Dementia: Yes Hx Seizures: Yes Hx Epilepsy: Yes Hx Tremors: Yes Hx Vertigo: Yes Hx Dizziness: Yes Hx Syncope: Yes Hx Headaches: Yes - occasional Hx Weakness: Yes Hx Fatigue: Yes Review of Systems All Other Systems: limited Physical Exam Vital Signs Date Time Temp Pulse Resp B/P (MAP) Pulse Ox O2 Delivery O2 Flow Rate FiO2 04/04/18 04:23 99.1 82 15 159/69 100 Non-Rebreather 12.0 Sp02 EP Interpretation: reviewed, normal General Appearance: mild distress, other - slow to answer, Chronically Ill Eyes: bilateral eye normal inspection, bilateral eye PERRL, bilateral eye other - Conjunctival injection ENT: moist mucus membranes Neck: supple Respiratory: no accessory muscle use, respiratory distress - Mild, decreased breath sounds, crackles, rales, rhonchi Cardiovascular #1: tachycardia Cardiovascular #2: 2+ radial (L) Gastrointestinal: non tender, decreased bowel sounds Genitourinary: normal inspection Musculoskeletal: other - extensor contractures Neurologic: alert, motor weakness - Bilateral lower extremi, oriented - 2 Psychiatric: depressed affect Skin: mottled Procedures Critical Care Time Critical Care Time Total Critical Care Time: 45 min bedside evaluation and treatment excludes procedures (EKG, intubation). Reason for critical care: resp failure, CHF Possible complications: hypotension, hypertension, CA, shock, arrhythmias, metabolic acidosis, end organ damage, respiratory failure. Interventions: BIPAP, reassessment, lasix, intubation Course: Patient with dyspnea. BIPAP statred. Lasix given. As possible infiltrates, BC and antibiotic coverage. Repeat assessment on BIPAP - lethargic. ABG with resp failure and resp acidosis. Intubated. Versed titrated. Consultations: nursing staff, EMS, RT, admitting MD Performed by: Dr. Gaspar Tolerated well condition = critical Intubation Intubation : Consent: Emergent Intubation Method: orotracheal Tube Size (cm): 7.5 Breath Sounds after Intubation: equal Intubation Complications: no complications Post Intubation Xray: Yes Attempts: One Patient Tolerated: Well Complications: None Medical Decision Making Diagnostic Impression: Primary Impression: CHF (congestive heart failure) Qualified Codes: I50.43 - Acute on chronic combined systolic (congestive) and diastolic (congestive) heart failure Additional Impressions: Bilateral pleural effusion Chest pain Qualified Codes: R07.9 - Chest pain, unspecified Respiratory failure, acute Qualified Codes: J96.02 - Acute respiratory failure with hypercapnia UTI (urinary tract infection) Qualified Codes: N39.0 - Urinary tract infection, site not specified ER Course Patient presents with dyspnea and chest pain. Differential includes acute myocardial infarction, congestive heart failure, pneumonia, playing pulmonary embolus amongst others. Evaluation will be with EKG, chest x-ray and labs. Patient may need to be placed on BiPAP. Patient fairly tachypneic. BiPAP is started. Patient improved on BiPAP with decreased heart rate and decreased respiratory rate. Antibiotics ordered as we cannot exclude infiltrates. Lasix also ordered. Patient less responsive on BiPAP. Blood gases ordered. Patient demonstrates hypercarbia and respiratory acidosis. Set up for intubation. Patient intubated with relative ease. Versed given Versed drip ordered. Patient upgraded to ICU. Admit ICU Dr. Mendoza. Laboratory Tests Test 04/04/18 04:30 04/04/18 04:45 11/3/18 05:47 04/04/18 05:50 Sodium Level 134 MMOL/L (136-145) L Potassium Level 4.8 MMOL/L (3.5-5.1) Chloride Level 91 MMOL/L (98-107) L Carbon Dioxide Level 43 MMOL/L (21-32) *H Anion Gap 0 mmol/L (5-15) L Blood Urea Nitrogen 10 mg/dL (7-18) Creatinine 0.6 MG/DL (0.55-1.30) Estimate Glomerular Filtration Rate mL/min (>60) Glucose Level 127 MG/DL (74-106) H Lactic Acid Level 0.60 mmol/L (0.4-2.0) Calcium Level 8.8 MG/DL (8.5-10.1) Magnesium Level 1.9 MG/DL (1.8-2.4) Total Bilirubin 0.7 MG/DL (0.2-1.0) Aspartate Amino Transferase (AST) 19 U/L (15-37) Alanine Aminotransferase (ALT) 12 U/L (12-78) Alkaline Phosphatase 68 U/L (46-116) Total Creatine Kinase 25 U/L (26-308) L Troponin I 0.016 ng/mL (0.000-0.056) Pro-B-Type Natriuretic Peptide 3207 pg/mL (0-125) H Total Protein 7.0 G/DL (6.4-8.2) Albumin 3.0 G/DL (3.4-5.0) L Globulin 4.0 g/dL Albumin/Globulin Ratio 0.8 (1.0-2.7) L Lipase 93 U/L (73-393) White Blood Count 7.8 K/UL (4.8-10.8) Red Blood Count 4.21 M/UL (4.20-5.40) Hemoglobin 12.0 G/DL (12.0-16.0) Hematocrit 37.2 % (37.0-47.0) Mean Corpuscular Volume 88 FL (80-99) Mean Corpuscular Hemoglobin 28.4 PG (27.0-31.0) Mean Corpuscular Hemoglobin Concent 32.2 G/DL (32.0-36.0) Red Cell Distribution Width 16.3 % (11.6-14.8) H Platelet Count 192 K/UL (150-450) Mean Platelet Volume 6.7 FL (6.5-10.1) Neutrophils (%) (Auto) % (45.0-75.0) Lymphocytes (%) (Auto) % (20.0-45.0) Monocytes (%) (Auto) % (1.0-10.0) Eosinophils (%) (Auto) % (0.0-3.0) Basophils (%) (Auto) % (0.0-2.0) Neutrophils % (Manual) Pending Lymphocytes % (Manual) Pending Platelet Estimate Pending Platelet Morphology Pending Prothrombin Time 11.1 SEC (9.30-11.50) Prothrombin Time INR 1.1 (0.9-1.1) PTT 29 SEC (23-33) Arterial Blood pH 7.253 (7.350-7.450) Arterial Blood Partial Pressure CO2 112.4 mmHg (35.0-45.0) *H Arterial Blood Partial Pressure O2 198.1 mmHg (75.0-100.0) H Arterial Blood HCO3 48.5 mmol/L (22.0-26.0) *H Arterial Blood Oxygen Saturation 99.2 % (95-100) Arterial Blood Base Excess 16.8 (-2-2) *H Ian Test Positive Urine Color Brown Urine Appearance Cloudy Urine pH 7 (4.5-8.0) Urine Specific [place] 1.015 (1.005-1.035) Urine Protein 3+ (NEGATIVE) H Urine Glucose (UA) Negative (NEGATIVE) Urine Ketones 1+ (NEGATIVE) H Urine Blood 4+ (NEGATIVE) H Urine Nitrite Positive (NEGATIVE) H Urine Bilirubin Negative (NEGATIVE) Urine Urobilinogen 4 MG/DL (0.0-1.0) H Urine Leukocyte Esterase 3+ (NEGATIVE) H Urine RBC 20-30 /HPF (0 - 2) H Urine WBC Tntc /HPF (0 - 2) H Urine Squamous Epithelial Cells Few /LPF (NONE/OCC) Urine Bacteria Moderate /HPF (NONE) H Microbiology Date/Time Source Procedure Growth Status 04/04/18 04:45 Nasal Nares Influenza Types A,B Antigen (ENA) - Final Complete EKG Diagnostic Results Rate: tachycardiac Rhythm: other - a fib ST Segments: no acute changes - NSSTTW changes, LAD, inc RBBB Rhythm Strip Diag. Results Rhythm: no PVC's, no ectopy, other - A fib Chest X-Ray Diagnostic Results Chest X-Ray Diagnostic Results #1: Chest X-Ray Ordered: Yes # of Views/Limited/Complete: 1 View Indication: Other EP Interpretation: Yes Interpretation: no pneumothorax, other - inc cor, bilat effusions, cannot exclude infiltrates Electronically Signed by: Electronically signed by Josue Gaspar MD Chest X-Ray Diagnostic Results #2: Chest X-Ray Ordered: Yes # of Views/Limited/Complete: 1 View Indication: Other - intubation EP Interpretation: Yes Interpretation: other - effusions, ET good placement, cannot exclude infiltrates Impression: Other Electronically Signed by: Josue Gaspar MD Status: improved Disposition: ADMITTED INPATIENT Condition: Critical Josue Gaspar MD Apr 04, 2018 04:45
--- NOTE | 2018-04-04 05:13 | Diagnostic Imaging Report ---
EXAM: XR Chest, 1 View CLINICAL HISTORY: CP TECHNIQUE: Frontal view of the chest. COMPARISON: Chest radiograph 03/21/2018 FINDINGS: Lungs: Patient rotation to the right limits evaluation for or volume loss within the lungs. Retrocardiac opacity representing atelectasis or consolidation with probable left moderate pleural effusion. Degree of left lung opacity has intervally increased, indicating increasing effusion and/or increasing atelectasis or consolidation in the left lung. Pleural space: Small right pleural effusion, new since prior study. Heart: Obscured cardiomediastinal silhouette. Mediastinum: See above. Bones/joints: Unremarkable. Tubes, lines and devices: Unchanged electronic device overlying the heart. Other findings: None. IMPRESSION: 1. Patient rotation to the right limits evaluation for or volume loss within the lungs. 2. Degree of left lung opacity has intervally increased, indicating increasing effusion and/or increasing atelectasis or consolidation in the left lung. 3. Small right pleural effusion, new since prior study. 4. Obscured cardiomediastinal silhouette.
[2018-04-04 05:17] LABS: HEMATOCRIT 37.2 % (37.0-47.0); MEAN CORPUSCULAR VOLUME 88 FL (80-99); PLATELET COUNT 192 K/UL (150-450); RED BLOOD COUNT 4.21 M/UL (4.20-5.40); RED CELL DISTRIBUTION WIDTH 16.3 % (11.6-14.8); WHITE BLOOD COUNT 7.8 K/UL (4.8-10.8)
[2018-04-04 05:18] LABS: INR 1.1 (0.9-1.1)
[2018-04-04] MEDS ORDERED: GUAIFENESI100 MG/5 M ORAL (05:19)
[2018-04-04] MEDS ORDERED: LISINOPRIL5 MG ORAL (05:19)
[2018-04-04] MEDS ORDERED: POTASSIUM CHLO10 ME3 ORAL (05:19)
[2018-04-04] MEDS ORDERED: DUONEB 0.5-3(2.53 ML HHN (05:19)
[2018-04-04 05:20] LABS: ANION GAP 0 mmol/L (5-15); BLOOD UREA NITROGEN 10 mg/dL (7-18); CALCIUM 8.8 MG/DL (8.5-10.1); CHLORIDE 91 MMOL/L (98-107); CREATININE 0.6 MG/DL (0.55-1.30); POTASSIUM 4.8 MMOL/L (3.5-5.1); SODIUM 134 MMOL/L (136-145)
[2018-04-04 05:22] LABS: CARBON DIOXIDE 43 MMOL/L (21-32)
[2018-04-04 05:30] LABS: ALANINE AMINOTRANSFERASE 12 U/L (12-78); ALBUMIN/GLOBULIN RATIO 0.8 (1.0-2.7); ALKALINE PHOSPHATASE 68 U/L (46-116); ASPARTATE AMINO TRANSFERASE 19 U/L (15-37); BILIRUBIN,TOTAL 0.7 MG/DL (0.2-1.0); CREATINE KINASE 25 U/L (26-308)
[2018-04-04] MEDS ORDERED: cefTRIAXone 1 GM in NS 55 ML IVPB ONE (05:30)
[2018-04-04] MEDS ORDERED: Vancomycin 1 GM in D5W 275 ML IVPB ONE (05:30)
[2018-04-04 06:03] LABS: APPEARANCE,URINE CLOUDY; BILIRUBIN, URINE NEGATIVE (NEGATIVE); COLOR,URINE BROWN; GLUCOSE, URINE (UA) NEGATIVE (NEGATIVE); KETONES,URINE 1+ (NEGATIVE); LEUKOCYTE ESTERASE ,URINE 3+ (NEGATIVE); NITRITE,URINE POSITIVE (NEGATIVE); PH,URINE 7 (4.5-8.0); PROTEIN,URINE 3+ (NEGATIVE); UROBILINOGEN,URINE 4 MG/DL (0.0-1.0)
[2018-04-04] MEDS ORDERED: Midazolam for drip 50 MG in NS 90 ML IV ONE (06:15)
[2018-04-04] MEDS ORDERED: Midazolam 2mg/2ml Inj ONE (06:30)
[2018-04-04] MEDS ORDERED: Midazolam 2mg/2ml Inj IVP ONE ×2 (06:45→07:00)
--- NOTE | 2018-04-04 06:57 | Diagnostic Imaging Report ---
EXAM: XR Chest, 1 View CLINICAL HISTORY: TUBE PLCMT TECHNIQUE: Frontal view of the chest. COMPARISON: 04/04/2018 at 0450 hrs. FINDINGS: Lungs: Persistent retrocardiac atelectasis or consolidation with mildly opacity in the left upper lung. Pleural space: Increased hazy attenuation of the right lung since most recent comparison, this could represent increasing pleural effusion or increased layering of pleural effusion. Amount of residual left pleural effusion is difficult to evaluate given retrocardiac opacity. No pneumothorax. Heart: Unremarkable. No cardiomegaly. Mediastinum: Unremarkable. Bones/joints: Unremarkable. Tubes, lines and devices: Interval intubation, ET tube 3.5 cm above ramesh. IMPRESSION: 1. Interval intubation, ET tube 3.5 cm above ramesh. 2. Increased hazy attenuation of the right lung since most recent comparison, this could represent increasing pleural effusion or increased layering of pleural effusion. 3. Persistent retrocardiac atelectasis or consolidation with mildly opacity in the left upper lung. 4. Amount of residual left pleural effusion is difficult to evaluate given retrocardiac opacity.
[2018-04-04] MEDS ORDERED: Sodium Chloride 500ML 500 ML IV ONE (08:30)
[2018-04-04] MEDS ORDERED: Miralax 17gm pkt ORAL PRN (08:45)
[2018-04-04] MEDS ORDERED: Albuterol/Ipratropium 3ml neb HHN PRN (08:45)
[2018-04-04] MEDS ORDERED: Morphine Sulfate 4mg/ml Inj (IV/IM USE ONLY) IVP PRN (08:45)
--- NOTE | 2018-04-04 10:39 | Diagnostic Imaging Report ---
EXAM: XR Chest, 1 View CLINICAL HISTORY: DYSPNEA TECHNIQUE: Frontal view of the chest. COMPARISON: Chest x-ray performed earlier on 04/04/18 at 6:33 AM FINDINGS: Lungs: Improved appearance of the interstitial markings, likely representing improved pulmonary vascular congestion. Subcentimeter atelectasis versus infiltrate in the left lung base, unchanged. Pleural space: Small left pleural effusion, unchanged. Heart: Unremarkable. No cardiomegaly. Mediastinum: Unremarkable. Bones/joints: Unremarkable. Tubes, lines and devices: Stable positioning of the endotracheal tube. EKG leads overlie the thorax. IMPRESSION: 1. Improved appearance of the interstitial markings, likely representing improved pulmonary vascular congestion. 2. Subcentimeter atelectasis versus infiltrate in the left lung base, unchanged. 3. Small left pleural effusion, unchanged.
[2018-04-04] MEDS: Pantoprazole Inj IV SCH (11:35)
[2018-04-04] MEDS: Heparin 5000 units/ml inj SUBQ SCH ×2 (11:38→21:10)
--- NOTE | 2018-04-04 12:07 | Pulmonolgy Critical Care Note ---
Critical Care - Asmt/Plan Assessment/Plan: HPI Patient is a 77 year ol woman who presents with chest pain and dyspnea, noted to have evidence of pneumonia, respiratory failure requiring intubation and mechanical ventilation. Symptoms have been present for 2 days. Noted to be in rapid atrial fibrillation on admission. Allergies: PIPERACILLIN /TAZOBACTAM Patient History PMH: Cardiac disease, Hypertension, Previous CVA, Seizure history, Dementia On ventilator, comfortable General Appearance: Appears chronically Ill Eyes: PERRL, conjunctival injection ENT: moist mucus membranes Neck: supple Respiratory: no accessory muscle use, BS equal bilaterally, occasional rhonchi Heart: HS1, HS2, Atrial fibrillation Gastrointestinal: Soft, non tender, no masses Neurologic: Sedated, nil focal, no seizure activity Extremities: No edema, no rashes Investigations: Nasal Nares Influenza Types A,B Antigen (ENA) - Final Negative EKG Diagnostic Results Rate: tachycardiac Rhythm: other - a fib ST Segments: no acute changes - NSSTTW changes, LAD, inc RBBB CXR: 1. Interval intubation, ET tube 3.5 cm above ramesh. 2. Increased hazy attenuation of the right lung since most recent comparison, this could represent increasing pleural effusion or increased layering of pleural effusion. 3. Persistent retrocardiac atelectasis or consolidation with mildly opacity in the left upper lung. 4. Amount of residual left pleural effusion is difficult to evaluate given retrocardiac opacity. Impression: Pneumonia Respiratory Failure Congestive Heart Failure, significantly elevated BNP Bilateral pleural effusion Chest pain: need to r/o ACS/PE Previous CVA H/o seizures H/o Dementia Plan: AC ventilation Wean FIO2 for sats 90-96% Serial troponins VQ scan/LE dupplex Sedation PRN Reduce Vt, recheck ABG Continue broad spectrum antibiotics Diurese PRN Atrovent HHN PPX: Heparin Follow Labs Tube feeding Critical Care - Objective Last 24 Hour Vital Signs Date Time Temp Pulse Resp B/P (MAP) Pulse Ox O2 Delivery O2 Flow Rate FiO2 04/04/18 11:26 87 16 40 04/04/18 09:09 89 16 50 04/04/18 09:00 88 18 101/62 100 Mechanical Ventilator 15.0 50 04/04/18 08:42 99.2 84 16 92/57 100 Mechanical Ventilator 15.0 50 04/04/18 08:35 99.2 84 16 103/54 100 Mechanical Ventilator 15.0 50 04/04/18 08:20 99.2 90 14 94/44 100 Mechanical Ventilator 15.0 50 04/04/18 08:00 99.2 81 16 75/45 100 Mechanical Ventilator 15.0 50 04/04/18 07:58 77 16 Mechanical Ventilator 60 04/04/18 07:52 77 16 60 04/04/18 07:45 99.2 80 19 77/35 100 Mechanical Ventilator 15.0 60 04/04/18 07:35 20 Mechanical Ventilator 04/04/18 07:30 99.2 79 16 72/34 100 Mechanical Ventilator 15.0 60 04/04/18 07:20 16 Mechanical Ventilator 04/04/18 07:15 99.2 77 16 85/63 100 Mechanical Ventilator 15.0 60 04/04/18 07:05 99.2 75 16 86/40 100 Mechanical Ventilator 15.0 60 04/04/18 07:05 16 Mechanical Ventilator 60 04/04/18 06:50 16 Mechanical Ventilator 60 04/04/18 06:00 99.2 89 20 124/55 100 15.0 100 04/04/18 05:10 91 22 100 Facial 100 04/04/18 05:05 91 22 Non-Rebreather 15.0 100 04/04/18 05:00 100 04/04/18 04:45 108 27 Non-Rebreather 15.0 04/04/18 04:36 99.2 108 27 159/79 99 Non-Rebreather 15.0 04/04/18 04:23 99.1 82 15 159/69 100 Non-Rebreather 12.0 Micro: Microbiology Date/Time Source Procedure Growth Status 04/04/18 04:45 Nasal Nares Influenza Types A,B Antigen (ENA) - Final Complete Critical Care - Subjective ROS Limited/Unobtainable: Yes Condition: critical EKG Rhythm: Atrial Fibrillation FI02: 40 Vent Support Breath Rate: 16 Vent Support Mode: AC Vent Tidal Volume: 550 Sputum Amount: Scant PEEP: 0.0 PIP: 34 I&O: Intake and Output 04/03/18 04/04/18 18:59 06:59 Intake Total 55 ml Balance 55 ml IV Total 55 ml ET-Tube: 7.5 ET Position: 23 Josue Todd MD Apr 04, 2018 12:07
--- NOTE | 2018-04-04 15:26 | Cardiac Electrophysiology PN ---
Subjective Subjective 1. Atrial flutter with rapid ventricular response. Resume Cardizem 90 mg every 8 hours and apixaban 5 mg, amiodarone 200 mg daily 2. S/P Medtronic Micra Leadless pacer implantation at [facility] 01/2016 3. Respiratory failure due to Congestive heart failure. On Lasix 40 mg iv q 8. On The vent 4. Hypertension on Cardizem and Lasix. 5. Psychosis and schizophrenia on Risperdal. DYLAN RN Objective Last 24 Hour Vital Signs Date Time Temp Pulse Resp B/P (MAP) Pulse Ox O2 Delivery O2 Flow Rate FiO2 04/04/18 14:54 84 16 35 04/04/18 12:57 83 16 40 04/04/18 11:26 87 16 40 04/04/18 09:39 Endotracheal Tube 04/04/18 09:09 89 16 50 04/04/18 09:00 88 18 101/62 100 Mechanical Ventilator 15.0 50 04/04/18 08:42 99.2 84 16 92/57 100 Mechanical Ventilator 15.0 50 04/04/18 08:35 99.2 84 16 103/54 100 Mechanical Ventilator 15.0 50 04/04/18 08:20 99.2 90 14 94/44 100 Mechanical Ventilator 15.0 50 04/04/18 08:00 99.2 81 16 75/45 100 Mechanical Ventilator 15.0 50 04/04/18 07:58 77 16 Mechanical Ventilator 60 04/04/18 07:52 77 16 60 04/04/18 07:45 99.2 80 19 77/35 100 Mechanical Ventilator 15.0 60 04/04/18 07:35 20 Mechanical Ventilator 04/04/18 07:30 99.2 79 16 72/34 100 Mechanical Ventilator 15.0 60 04/04/18 07:20 16 Mechanical Ventilator 04/04/18 07:15 99.2 77 16 85/63 100 Mechanical Ventilator 15.0 60 04/04/18 07:05 99.2 75 16 86/40 100 Mechanical Ventilator 15.0 60 04/04/18 07:05 16 Mechanical Ventilator 60 04/04/18 06:50 16 Mechanical Ventilator 60 04/04/18 06:00 99.2 89 20 124/55 100 15.0 100 04/04/18 05:10 91 22 100 Facial 100 04/04/18 05:05 91 22 Non-Rebreather 15.0 100 04/04/18 05:00 100 04/04/18 04:45 108 27 Non-Rebreather 15.0 04/04/18 04:36 99.2 108 27 159/79 99 Non-Rebreather 15.0 04/04/18 04:23 99.1 82 15 159/69 100 Non-Rebreather 12.0 Intake and Output 04/03/18 04/04/18 19:00 07:00 Intake Total 55 ml Balance 55 ml IV Total 55 ml Laboratory Tests Test 04/04/18 04:30 04/04/18 04:45 04/04/18 05:47 04/04/18 05:50 Sodium Level 134 MMOL/L (136-145) L Potassium Level 4.8 MMOL/L (3.5-5.1) Chloride Level 91 MMOL/L (98-107) L Carbon Dioxide Level 43 MMOL/L (21-32) *H Anion Gap 0 mmol/L (5-15) L Blood Urea Nitrogen 10 mg/dL (7-18) Creatinine 0.6 MG/DL (0.55-1.30) Estimat Glomerular Filtration Rate mL/min (>60) Glucose Level 127 MG/DL (74-106) H Lactic Acid Level 0.60 mmol/L (0.4-2.0) Calcium Level 8.8 MG/DL (8.5-10.1) Magnesium Level 1.9 MG/DL (1.8-2.4) Total Bilirubin 0.7 MG/DL (0.2-1.0) Aspartate Amino Transf (AST/SGOT) 19 U/L (15-37) Alanine Aminotransferase (ALT/SGPT) 12 U/L (12-78) Alkaline Phosphatase 68 U/L (46-116) Total Creatine Kinase 25 U/L (26-308) L Troponin I 0.016 ng/mL (0.000-0.056) Pro-B-Type Natriuretic Peptide 3207 pg/mL (0-125) H Total Protein 7.0 G/DL (6.4-8.2) Albumin 3.0 G/DL (3.4-5.0) L Globulin 4.0 g/dL Albumin/Globulin Ratio 0.8 (1.0-2.7) L Lipase 93 U/L (73-393) White Blood Count 7.8 K/UL (4.8-10.8) Red Blood Count 4.21 M/UL (4.20-5.40) Hemoglobin 12.0 G/DL (12.0-16.0) Hematocrit 37.2 % (37.0-47.0) Mean Corpuscular Volume 88 FL (80-99) Mean Corpuscular Hemoglobin 28.4 PG (27.0-31.0) Mean Corpuscular Hemoglobin Concent 32.2 G/DL (32.0-36.0) Red Cell Distribution Width 16.3 % (11.6-14.8) H Platelet Count 192 K/UL (150-450) Mean Platelet Volume 6.7 FL (6.5-10.1) Neutrophils (%) (Auto) % (45.0-75.0) Lymphocytes (%) (Auto) % (20.0-45.0) Monocytes (%) (Auto) % (1.0-10.0) Eosinophils (%) (Auto) % (0.0-3.0) Basophils (%) (Auto) % (0.0-2.0) Differential Total Cells Counted 100 Neutrophils % (Manual) 83 % (45-75) H Lymphocytes % (Manual) 5 % (20-45) L Monocytes % (Manual) 7 % (1-10) Eosinophils % (Manual) 1 % (0-3) Basophils % (Manual) 0 % (0-2) Band Neutrophils 4 % (0-8) Platelet Estimate Adequate Platelet Morphology Normal Anisocytosis 1+ Prothrombin Time 11.1 SEC (9.30-11.50) Prothromb Time International Ratio 1.1 (0.9-1.1) Activated Partial Thromboplast Time 29 SEC (23-33) Arterial Blood pH 7.253 (7.350-7.450) Arterial Blood Partial Pressure CO2 112.4 mmHg (35.0-45.0) *H Arterial Blood Partial Pressure O2 198.1 mmHg (75.0-100.0) H Arterial Blood HCO3 48.5 mmol/L (22.0-26.0) *H Arterial Blood Oxygen Saturation 99.2 % (95-100) Arterial Blood Base Excess 16.8 (-2-2) *H Ian Test Positive Urine Color Brown Urine Appearance Cloudy Urine pH 7 (4.5-8.0) Urine Specific [place] 1.015 (1.005-1.035) Urine Protein 3+ (NEGATIVE) H Urine Glucose (UA) Negative (NEGATIVE) Urine Ketones 1+ (NEGATIVE) H Urine Blood 4+ (NEGATIVE) H Urine Nitrite Positive (NEGATIVE) H Urine Bilirubin Negative (NEGATIVE) Urine Urobilinogen 4 MG/DL (0.0-1.0) H Urine Leukocyte Esterase 3+ (NEGATIVE) H Urine RBC 20-30 /HPF (0 - 2) H Urine WBC Tntc /HPF (0 - 2) H Urine Squamous Epithelial Cells Few /LPF (NONE/OCC) Urine Bacteria Moderate /HPF (NONE) H Test 04/04/18 07:38 04/04/18 09:22 04/04/18 11:15 Arterial Blood pH 7.519 (7.350-7.450) 7.544 (7.350-7.450) Arterial Blood Partial Pressure CO2 50.4 mmHg (35.0-45.0) H 42.6 mmHg (35.0-45.0) Arterial Blood Partial Pressure O2 98.7 mmHg (75.0-100.0) 198.1 mmHg (75.0-100.0) H Arterial Blood HCO3 40.1 mmol/L (22.0-26.0) *H 35.9 mmol/L (22.0-26.0) H Arterial Blood Oxygen Saturation 97.8 % (95-100) 99.1 % (95-100) Arterial Blood Base Excess 15.3 (-2-2) *H 12.3 (-2-2) *H Ian Test Positive Positive Troponin I 0.033 ng/mL (0.000-0.056) Microbiology Date/Time Source Procedure Growth Status 04/04/18 04:45 Nasal Nares Influenza Types A,B Antigen (ENA) - Final Complete Yohan Milian MD Apr 04, 2018 15:26
--- NOTE | 2018-04-04 15:30 | History & Physical ---
History and Physical History & Physicial Dictated for Int Med-Dr Mendoza no. [id number]. Juan Dutta MD Apr 04, 2018 15:30
--- NOTE | 2018-04-04 18:00 | History and Physical Report ---
DATE OF ADMISSION: 04/04/2018 CHIEF COMPLAINT: The patient is a 77-year-old white female, who presents with chief complaint of tachycardia. HISTORY OF PRESENT ILLNESS: The patient is a resident of [facility] halfway facility. The patient herself is intubated. Much of the history and physical is taken from the patient's chart. According to staff at [facility], the patient began to have tachycardia yesterday, 04/03/2018. The patient also became short of breath. This has been occurring for approximately one day. The patient presented to [facility]. The patient was found to have tachycardia and atrial flutter. The patient is admitted for atrial flutter with rapid ventricular rate. REVIEW OF SYSTEMS: Unable to assess secondary to the patient's mental status. PAST MEDICAL HISTORY: Significant for: 1. History of atrial flutter. 2. Congestive heart failure. 3. Chronic obstructive pulmonary disease. 4. History of intraventricular pacemaker. 5. Coronary artery disease. 6. Hypertension. 7. Seizure disorder. 8. Schizophrenia. 9. Depression. PAST SURGICAL HISTORY: Significant for pacemaker implantation, intraventricular. CURRENT MEDICATIONS: 1. Amiodarone 200 mg one tablet p.o. daily. 2. Apixaban 5 mg p.o. twice daily. 3. Diltiazem 90 mg p.o. q.8 h. 4. Furosemide 40 mg p.o. daily. 5. Lisinopril 5 mg p.o. daily. 6. Mirtazapine 15 mg p.o. nightly. 7. Protonix 40 mg p.o. twice daily. 8. Potassium chloride 10 mEq p.o. p.o. daily. 9. Risperdal 2 mg p.o. nightly. 10. Ambien 5 mg p.o. nightly. ALLERGIES: Piperacillin and tazobactam. SOCIAL HISTORY: The patient is a resident of [facility]. PHYSICAL EXAMINATION: VITAL SIGNS: Temperature 99.1, respirations 15 to 27, pulse 82 to 108, and blood pressure 159/79. GENERAL: The patient is a well-developed and well-nourished white female, who is in moderate respiratory distress. HEENT: Eyes, pupils are equal and responsive to light and accommodation. Extraocular movements are intact. NECK: Supple without lymphadenopathy. CHEST: Few crackles at bilateral bases. Otherwise, clear to auscultation. No wheezes or rales. CARDIOVASCULAR: Tachycardic, regular rhythm. S1 and S2 normal without murmurs, rubs, or gallops. ABDOMEN: Soft, nontender, and nondistended. Positive bowel sounds. No hepatosplenomegaly. Currently, no rebound or guarding noted. EXTREMITIES: Negative for clubbing, cyanosis, or edema. NEUROLOGIC: Cranial nerves II through XII are grossly intact without focal deficits. LABORATORY STUDIES: WBC 7.8, hemoglobin 12.0, hematocrit 37.3, and platelets 192,000. Sodium 134, potassium 4.8, chloride 91, CO2 43, BUN 10, and creatinine 0.6. Glucose 127. Troponin 0.016. BNP elevated at 3207. ASSESSMENT: This is a 77-year-old white female with: 1. Tachycardia. 2. Atrial flutter. 3. Congestive heart failure. 4. Chronic obstructive pulmonary disease. 5. Pacemaker in situ. 6. Coronary artery disease. 7. Hypertension. 8. Seizure disorder. 9. Schizophrenia. 10. Depression. TREATMENT: 1. Tachycardia/atrial flutter/congestive heart failure. Cardiology consultation has been obtained with Dr. Yohan Milian. We will follow recommendation of Cardiology. The patient has been started empirically on intravenous Lasix. 2. Respiratory failure. This is secondary to congestive heart failure. The patient is currently intubated. A Pulmonary consultation has been obtained with Dr. Mendel Sierra. 3. Pacemaker in situ. 4. Coronary artery disease. 5. Hypertension. The patient is currently hypertensive. 6. Seizure disorder. 7. Schizophrenia. Continue Risperdal as above. Juan Dutta M.D. DR: CASSANDRA JOB#: [id number] CC:
[2018-04-04] MEDS: LORazepam Inj 2mg/ml 1ml IV PRN (18:05)
--- NOTE | 2018-04-04 19:05 | Diagnostic Imaging Report ---
EXAM: XR Abdomen, 1 View CLINICAL HISTORY: NGT TECHNIQUE: Frontal supine view of the abdomen/pelvis. COMPARISON: Chest x-ray performed on the same day. FINDINGS: The majority of the pelvis was not included in the imaging field. Lower thorax: Probable bilateral pleural effusions with adjacent atelectasis versus infiltrate at the lung bases. Gastrointestinal tract: Multiple air-filled loops of small bowel. No definite plain film evidence for significant bowel dilation.. Bones/joints: The vertebral bodies are not well-visualized. Vertebral body compression fractures are suspected. A vertebroplasty is noted. Osteopenia. Vasculature: Calcifications projected in the aorta. Tubes, lines and devices: Nasogastric tube with tip projected in the region of the body of the stomach. IMPRESSION: 1. Nasogastric tube with tip projected in the region of the body of the stomach. 2. Probable bilateral pleural effusions with adjacent atelectasis versus infiltrate at the lung bases.
--- NOTE | 2018-04-04 19:35 | Consultation ---
History of Present Illness General Chief Complaint: Chest Pain Present Illness HPI 77-year-old white female, who presents with chief complaint of tachycardia. the pt was confused and pw waxing and waning of consciousness. The pt has cognitive impairment and is unable to provide any history. the pt has episodes of agitations. the pt has memory impairment. Allergies: Coded Allergies: PIPERACILLIN (Unverified Allergy, Unknown, 03/10/18) TAZOBACTAM (Unverified Allergy, Unknown, 03/10/18) Medication History Scheduled Amiodarone Hcl* (Pacerone*), 200 MG ORAL DAILY Apixaban (Eliquis), 5 MG ORAL BID Diltiazem HCl (Diltiazem HCl), 90 MG ORAL Q8HR Furosemide* (Lasix*), 40 MG ORAL DAILY, (Reported) Furosemide* (Lasix*), 40 MG ORAL TWICE A DAY Guaifenesin* (Guaifenesin), 5 ML ORAL Q6H, (Reported) Lisinopril (Lisinopril*), 5 MG ORAL DAILY, (Reported) Mirtazapine* (Mirtazapine*), 15 MG ORAL BEDTIME Pantoprazole* (Protonix*), 40 MG ORAL EVERY 12 HOURS Potassium Chloride (Potassium Chloride), 10 MEQ ORAL DAILY, (Reported) Risperidone* (Risperdal*), 2 MG ORAL BEDTIME Risperidone* (Risperdal*), 2 MG ORAL BEDTIME Scheduled PRN Zolpidem Tartrate* (Ambien*), 5 MG ORAL BEDTIME PRN for Insomnia, (Reported) Miscellaneous Medications Ipratropium/Albuterol Sulfate (DuoNeb 0.5-3(2.5)mg/3ml), 3 ML HHN, (Reported) Patient History Limited by: medical condition History Provided By: Patient, Medical Record, PMD Healthcare decision maker Resuscitation status Full Code Advanced Directive on File Past Medical/Surgical History Past Medical/Surgical History: (1) Hypoxia (2) Dyspnea (3) CHF (congestive heart failure) (4) Chest pain (5) Bilateral pleural effusion (6) Pneumonia (7) Pacemaker (8) Schizophrenia (9) UTI (urinary tract infection) (10) HTN (hypertension) (11) Recurrent falls (12) Atrial flutter (13) CAD (coronary artery disease) (14) Dementia (15) Hyponatremia (16) Constipation (17) Accelerated hypertension (18) Atrial fibrillation with RVR (19) Pulmonary edema (20) Seizure disorder (21) H/O ETOH abuse (22) Acute diastolic CHF (congestive heart failure) (23) UTI (lower urinary tract infection) (24) COPD (chronic obstructive pulmonary disease) (25) Bipolar depression (26) Cerebral vascular disease (27) Hypovolemic shock (28) Hemorrhagic shock (29) Hypokalemia (30) Gout (31) Bacteremia (32) Gastrointestinal bleeding (33) Major depression (34) Sepsis (35) ATN (acute tubular necrosis) (36) Encephalopathy acute (37) Healthcare-associated pneumonia (38) Wheelchair bound (39) Anemia, chronic disease (40) Acute encephalopathy (41) Intractable back pain (42) Incontinence in female (43) Respiratory failure, acute (44) Skin rash (45) Deep vein thrombosis (DVT) of left lower extremity Review of Systems Psychiatric: Reports: prior hx, anxiety, depressed feelings, emotional problems , hallucinations Physical Exam General Appearance: alert, lethargic - waxing and waning of conciousness , confused Neurologic: oriented x 3, responsive, depressed affect Last 24 Hour Vital Signs Date Time Temp Pulse Resp B/P (MAP) Pulse Ox O2 Delivery O2 Flow Rate FiO2 04/04/18 17:37 35 04/04/18 17:06 94 16 35 04/04/18 16:00 91 04/04/18 16:00 35 04/04/18 16:00 Mechanical Ventilator 04/04/18 14:54 84 16 35 04/04/18 12:57 83 16 40 04/04/18 12:00 Mechanical Ventilator 04/04/18 12:00 50 04/04/18 12:00 90 04/04/18 11:26 87 16 40 04/04/18 09:39 Endotracheal Tube 04/04/18 09:09 89 16 50 04/04/18 09:00 88 18 101/62 100 Mechanical Ventilator 15.0 50 04/04/18 08:42 99.2 84 16 92/57 100 Mechanical Ventilator 15.0 50 04/04/18 08:35 99.2 84 16 103/54 100 Mechanical Ventilator 15.0 50 04/04/18 08:20 99.2 90 14 94/44 100 Mechanical Ventilator 15.0 50 04/04/18 08:00 99.2 81 16 75/45 100 Mechanical Ventilator 15.0 50 04/04/18 07:58 77 16 Mechanical Ventilator 60 04/04/18 07:52 77 16 60 04/04/18 07:45 99.2 80 19 77/35 100 Mechanical Ventilator 15.0 60 04/04/18 07:35 20 Mechanical Ventilator 04/04/18 07:30 99.2 79 16 72/34 100 Mechanical Ventilator 15.0 60 04/04/18 07:20 16 Mechanical Ventilator 04/04/18 07:15 99.2 77 16 85/63 100 Mechanical Ventilator 15.0 60 04/04/18 07:05 99.2 75 16 86/40 100 Mechanical Ventilator 15.0 60 04/04/18 07:05 16 Mechanical Ventilator 60 04/04/18 06:50 16 Mechanical Ventilator 60 04/04/18 06:00 99.2 89 20 124/55 100 15.0 100 04/04/18 05:10 91 22 100 Facial 100 04/04/18 05:05 91 22 Non-Rebreather 15.0 100 04/04/18 05:00 100 04/04/18 04:45 108 27 Non-Rebreather 15.0 04/04/18 04:36 99.2 108 27 159/79 99 Non-Rebreather 15.0 04/04/18 04:23 99.1 82 15 159/69 100 Non-Rebreather 12.0 Intake and Output 04/03/18 04/04/18 19:00 07:00 Intake Total 55 ml Balance 55 ml IV Total 55 ml Laboratory Tests Test 04/04/18 04:30 04/04/18 04:45 04/04/18 05:47 04/04/18 05:50 Sodium Level 134 MMOL/L (136-145) L Potassium Level 4.8 MMOL/L (3.5-5.1) Chloride Level 91 MMOL/L (98-107) L Carbon Dioxide Level 43 MMOL/L (21-32) *H Anion Gap 0 mmol/L (5-15) L Blood Urea Nitrogen 10 mg/dL (7-18) Creatinine 0.6 MG/DL (0.55-1.30) Estimat Glomerular Filtration Rate mL/min (>60) Glucose Level 127 MG/DL (74-106) H Lactic Acid Level 0.60 mmol/L (0.4-2.0) Calcium Level 8.8 MG/DL (8.5-10.1) Magnesium Level 1.9 MG/DL (1.8-2.4) Total Bilirubin 0.7 MG/DL (0.2-1.0) Aspartate Amino Transf (AST/SGOT) 19 U/L (15-37) Alanine Aminotransferase (ALT/SGPT) 12 U/L (12-78) Alkaline Phosphatase 68 U/L (46-116) Total Creatine Kinase 25 U/L (26-308) L Troponin I 0.016 ng/mL (0.000-0.056) Pro-B-Type Natriuretic Peptide 3207 pg/mL (0-125) H Total Protein 7.0 G/DL (6.4-8.2) Albumin 3.0 G/DL (3.4-5.0) L Globulin 4.0 g/dL Albumin/Globulin Ratio 0.8 (1.0-2.7) L Lipase 93 U/L (73-393) White Blood Count 7.8 K/UL (4.8-10.8) Red Blood Count 4.21 M/UL (4.20-5.40) Hemoglobin 12.0 G/DL (12.0-16.0) Hematocrit 37.2 % (37.0-47.0) Mean Corpuscular Volume 88 FL (80-99) Mean Corpuscular Hemoglobin 28.4 PG (27.0-31.0) Mean Corpuscular Hemoglobin Concent 32.2 G/DL (32.0-36.0) Red Cell Distribution Width 16.3 % (11.6-14.8) H Platelet Count 192 K/UL (150-450) Mean Platelet Volume 6.7 FL (6.5-10.1) Neutrophils (%) (Auto) % (45.0-75.0) Lymphocytes (%) (Auto) % (20.0-45.0) Monocytes (%) (Auto) % (1.0-10.0) Eosinophils (%) (Auto) % (0.0-3.0) Basophils (%) (Auto) % (0.0-2.0) Differential Total Cells Counted 100 Neutrophils % (Manual) 83 % (45-75) H Lymphocytes % (Manual) 5 % (20-45) L Monocytes % (Manual) 7 % (1-10) Eosinophils % (Manual) 1 % (0-3) Basophils % (Manual) 0 % (0-2) Band Neutrophils 4 % (0-8) Platelet Estimate Adequate Platelet Morphology Normal Anisocytosis 1+ Prothrombin Time 11.1 SEC (9.30-11.50) Prothromb Time International Ratio 1.1 (0.9-1.1) Activated Partial Thromboplast Time 29 SEC (23-33) Arterial Blood pH 7.253 (7.350-7.450) Arterial Blood Partial Pressure CO2 112.4 mmHg (35.0-45.0) *H Arterial Blood Partial Pressure O2 198.1 mmHg (75.0-100.0) H Arterial Blood HCO3 48.5 mmol/L (22.0-26.0) *H Arterial Blood Oxygen Saturation 99.2 % (95-100) Arterial Blood Base Excess 16.8 (-2-2) *H Ian Test Positive Urine Color Brown Urine Appearance Cloudy Urine pH 7 (4.5-8.0) Urine Specific [place] 1.015 (1.005-1.035) Urine Protein 3+ (NEGATIVE) H Urine Glucose (UA) Negative (NEGATIVE) Urine Ketones 1+ (NEGATIVE) H Urine Blood 4+ (NEGATIVE) H Urine Nitrite Positive (NEGATIVE) H Urine Bilirubin Negative (NEGATIVE) Urine Urobilinogen 4 MG/DL (0.0-1.0) H Urine Leukocyte Esterase 3+ (NEGATIVE) H Urine RBC 20-30 /HPF (0 - 2) H Urine WBC Tntc /HPF (0 - 2) H Urine Squamous Epithelial Cells Few /LPF (NONE/OCC) Urine Bacteria Moderate /HPF (NONE) H Test 04/04/18 07:38 04/04/18 09:22 04/04/18 11:15 Arterial Blood pH 7.519 (7.350-7.450) 7.544 (7.350-7.450) Arterial Blood Partial Pressure CO2 50.4 mmHg (35.0-45.0) H 42.6 mmHg (35.0-45.0) Arterial Blood Partial Pressure O2 98.7 mmHg (75.0-100.0) 198.1 mmHg (75.0-100.0) H Arterial Blood HCO3 40.1 mmol/L (22.0-26.0) *H 35.9 mmol/L (22.0-26.0) H Arterial Blood Oxygen Saturation 97.8 % (95-100) 99.1 % (95-100) Arterial Blood Base Excess 15.3 (-2-2) *H 12.3 (-2-2) *H Ian Test Positive Positive Troponin I 0.033 ng/mL (0.000-0.056) Microbiology Date/Time Source Procedure Growth Status 04/04/18 04:45 Nasal Nares Influenza Types A,B Antigen (ENA) - Final Complete Height (Feet): 5 Height (Inches): 7.00 Weight (Pounds): 195 Medications Current Medications Medications (Trade) Dose Ordered Sig/Ibrahima Route PRN Reason Start Time Stop Time Status Last Admin Dose Admin Acetaminophen (Tylenol) 650 mg Q4H PRN ORAL Fever (temp >100.3) 04/04/18 08:45 05/04/18 08:44 Albuterol/ Ipratropium (Albuterol/ Ipratropium) 3 ml Q4H PRN HHN Shortness of Breath 04/04/18 08:45 04/09/18 08:44 Amiodarone HCl (Cordarone) 200 mg DAILY NG 04/05/18 09:00 05/05/18 08:59 Apixaban (Eliquis) 5 mg Q12HR ORAL 04/04/18 21:00 05/04/18 20:59 Dextrose (Dextrose 50%) 25 ml Q30M PRN IV Hypoglycemia 04/04/18 08:45 05/04/18 08:44 Dextrose (Dextrose 50%) 50 ml Q30M PRN IV Hypoglycemia 04/04/18 10:30 05/04/18 10:29 Diltiazem HCl (Cardizem) 90 mg EVERY 8 HOURS NG 04/04/18 22:00 05/04/18 21:59 Furosemide (Lasix) 40 mg EVERY 8 HOURS IV 04/04/18 22:00 05/04/18 21:59 Heparin Sodium (Porcine) (Heparin 5000 units/ml) 5,000 units EVERY 12 HOURS SUBQ 04/04/18 10:30 05/04/18 10:29 04/04/18 11:38 Ipratropium [place] (Atrovent) 500 mcg Q6HRT HHN 04/04/18 19:00 04/09/18 18:59 Levofloxacin 100 ml @ 100 mls/hr Q24H IVPB 04/05/18 08:00 04/12/18 07:59 Lorazepam (Ativan 2mg/ml 1ml) 2 mg Q4H PRN IV For Anxiety 04/04/18 08:45 04/11/18 08:44 04/04/18 18:05 Metronidazole 100 ml @ 100 mls/hr Q8HR IVPB 04/04/18 22:00 04/11/18 21:59 Morphine Sulfate (Morphine Sulfate) 4 mg Q4H PRN IVP For Pain 04/04/18 08:45 04/11/18 08:44 Ondansetron HCl (Zofran) 4 mg Q6H PRN IVP Nausea & Vomiting 04/04/18 08:45 05/04/18 08:44 Pantoprazole (Protonix) 40 mg DAILY IV 04/04/18 10:15 05/04/18 10:14 04/04/18 11:35 Polyethylene Glycol (Miralax) 17 gm DAILYPRN PRN ORAL Constipation 04/04/18 08:45 05/04/18 08:44 Temazepam (Restoril) 15 mg HSPRN PRN ORAL Insomnia 04/04/18 08:45 04/11/18 08:44 Vancomycin HCl (Vanco rx to dose) 1 ea DAILY PRN MISC Per rx protocol 04/04/18 17:45 05/04/18 17:44 Vancomycin HCl 500 mg/Dextrose 110 ml @ 110 mls/hr Q12HR@0800,2000 IVPB 04/04/18 20:00 04/09/18 19:59 Assessment/Plan Problem List: (1) Schizophrenia ICD Codes: F20.9 - Schizophrenia, unspecified SNOMED: 93931044 (2) Dementia ICD Codes: F03.90 - Dementia SNOMED: 19646146 (3) Encephalopathy acute ICD Codes: G93.40 - Encephalopathy, unspecified SNOMED: 2650751 Status: stable, progressing Assessment/Plan Ativan IM prn haldol IM prn Luiz Morrison MD Apr 04, 2018 19:35
[2018-04-04] MEDS: Ipratropium 0.02% Inh Soln 2.5ml UD HHN SCH (19:44)
[2018-04-04] MEDS ORDERED: Vancomycin 500mg/D5W 110ml IVPB SCH ×2 (20:00)
[2018-04-04] MEDS: Eliquis 2.5mg tablet ORAL SCH (21:09)
[2018-04-04] MEDS: dilTIAZem HCl 90mg tab NG SCH (21:30)
--- NOTE | 2018-04-04 23:00 | Consultation ---
DATE OF CONSULTATION: 04/04/2018 CARDIOLOGY CONSULTATION CONSULTING PHYSICIAN: Yohan Milian M.D. REFERRING PHYSICIAN: Yonathan Mendoza M.D. REASON FOR CONSULTATION: Management of congestive heart failure as well as atrial flutter with rapid ventricular response and evaluation of the patient's pacemaker. HISTORY OF PRESENT ILLNESS: The patient is a very pleasant 77-year-old lady who was just discharged 10 days ago. The patient was brought in for her respiratory failure and desaturation, and was intubated and brought to the intensive care unit. The patient also has history of atrial flutter as well as history of [employer] Micra leadless pacemaker implantation at [facility] in 2015. The patient also has a history of hypertension, psychosis, and schizophrenia. At the time of my evaluation, the patient is intubated in intensive care unit and is unable to provide any information. REVIEW OF SYSTEMS: Cannot be obtained. PAST MEDICAL HISTORY: As mentioned above. FAMILY HISTORY: Noncontributory. ALLERGIES: She is allergic to and tazobactam. PHYSICAL EXAMINATION: VITAL SIGNS: Show blood pressure of 101/62, pulse is 88, respirations 18, and temperature is 99 degrees. HEAD AND NECK: She is orally intubated with NG tube. LUNGS: Coarse rhonchi. CARDIOVASCULAR: Irregular and tachycardic. S1 and S2 with no gallop. ABDOMEN: Soft. EXTREMITIES: 1+ pitting edema. LABORATORY AND DIAGNOSTIC DATA: Her EKG shows atrial flutter with rapid ventricular response. Labs, white count of 7.8, hemoglobin of 12, hematocrit of 37.2, and platelet count is 192,000. Sodium is 134, potassium 4.8, BUN of 10, creatinine of 0.6, and glucose of 127. Troponin negative x2. BNP 3,207. ASSESSMENT AND PLAN: 1. Atrial flutter with rapid ventricular response. Resume Cardizem 90 mg every 8 hours, apixaban 5 mg b.i.d., and amiodarone 200 mg daily. 2. Status post Medtronic Micra leadless pacemaker implantation in January of 2016 at [facility]. 3. Respiratory failure to diastolic dysfunction. Her echocardiogram showed EF of 55%. We will start the patient on Lasix 80 mg IV every 8 hours, currently on the ventilator. 4. Hypertension, on Lasix and Cardizem. 5. Psychosis and schizophrenia, on Risperdal. Thank you very much, Dr. Mendoza, for allowing me to participate in the care of this patient. Please do not hesitate to contact me for any questions regarding my evaluation. Yohan Milian M.D. DR: JORGE JOB#: [id number] CC:
[2018-04-05] VITALS (51 sets, daily range): BP systolic 93–141; BP diastolic 34–62
[2018-04-05] MEDS: Ipratropium 0.02% Inh Soln 2.5ml UD HHN SCH ×4 (01:03→19:28)
[2018-04-05] MEDS: dilTIAZem HCl 90mg tab NG SCH ×3 (05:40→21:38)
[2018-04-05 05:41] LABS: EOSINOPHILS % (AUTO) 1.1 % (0.0-3.0); HEMATOCRIT 31.1 % (37.0-47.0); HEMOGLOBIN 10.1 G/DL (12.0-16.0); LYMPHOCYTES % (AUTO) 16.4 % (20.0-45.0); MEAN CORPUSCULAR VOLUME 86 FL (80-99); MONOCYTES % (AUTO) 8.2 % (1.0-10.0); NEUTROPHILS % (AUTO) 73.3 % (45.0-75.0); PLATELET COUNT 186 K/UL (150-450); RED BLOOD COUNT 3.62 M/UL (4.20-5.40); WHITE BLOOD COUNT 7.3 K/UL (4.8-10.8)
[2018-04-05 06:35] LABS: ALBUMIN 2.6 G/DL (3.4-5.0); ANION GAP 3 mmol/L (5-15); BLOOD UREA NITROGEN 14 mg/dL (7-18); CALCIUM 8.6 MG/DL (8.5-10.1); CARBON DIOXIDE 37 MMOL/L (21-32); CHLORIDE 96 MMOL/L (98-107); PHOSPHORUS 2.3 MG/DL (2.5-4.9); POTASSIUM 3.7 MMOL/L (3.5-5.1); SODIUM 136 MMOL/L (136-145)
[2018-04-05] MEDS ORDERED: Sterile Water Irrig 1000ml IRRIG ONE (08:45)
[2018-04-05] MEDS ORDERED: Tubing IV Secondary IV ONE (08:45)
[2018-04-05] MEDS ORDERED: NS 275ml ONE (08:45)
--- NOTE | 2018-04-05 08:53 | Pulmonolgy Critical Care Note ---
Critical Care - Asmt/Plan Assessment/Plan: HPI Patient is a 77 year ol woman who presents with chest pain and dyspnea, noted to have evidence of pneumonia, respiratory failure requiring intubation and mechanical ventilation. Symptoms have been present for 2 days. Noted to be in rapid atrial fibrillation on admission. Severe alkalosis, Vt/RR reduced, started on sedation, repeat ABG pending NGT in position on KUB Allergies: PIPERACILLIN /TAZOBACTAM Patient History PMH: Cardiac disease, Hypertension, Previous CVA, Seizure history, Dementia On ventilator, comfortable General Appearance: Appears chronically Ill Eyes: PERRL, conjunctival injection ENT: moist mucus membranes Neck: supple Respiratory: no accessory muscle use, BS equal bilaterally, occasional rhonchi Heart: HS1, HS2, Atrial fibrillation Gastrointestinal: Soft, non tender, no masses Neurologic: Sedated, nil focal, no seizure activity Extremities: No edema, no rashes Investigations: Nasal Nares Influenza Types A,B Antigen (ENA) - Final Negative EKG Diagnostic Results Rate: tachycardiac Rhythm: other - a fib ST Segments: no acute changes - NSSTTW changes, LAD, inc RBBB CXR: 1. Interval intubation, ET tube 3.5 cm above ramesh. 2. Increased hazy attenuation of the right lung since most recent comparison, this could represent increasing pleural effusion or increased layering of pleural effusion. 3. Persistent retrocardiac atelectasis or consolidation with mildly opacity in the left upper lung. 4. Amount of residual left pleural effusion is difficult to evaluate given retrocardiac opacity. Impression: Pneumonia Respiratory Failure Congestive Heart Failure, significantly elevated BNP Bilateral pleural effusion Chest pain: need to r/o ACS/PE Previous CVA H/o seizures H/o Dementia Plan: AC ventilation, adjust Vt, RR sedation Repeat ABG Wean FIO2 for sats 90-96% Serial troponins VQ scan/LE dupplex Sedation PRN Reduce Vt, recheck ABG Continue broad spectrum antibiotics Diurese PRN - may need Acetazolamide 250 bid if still alkalemic Atrovent HHN PPX: Heparin Follow Labs Tube feeding Critical Care - Objective Last 24 Hour Vital Signs Date Time Temp Pulse Resp B/P (MAP) Pulse Ox O2 Delivery O2 Flow Rate FiO2 04/05/18 07:00 65 17 93/38 (56) 96 04/05/18 07:00 13 Mechanical Ventilator 35 04/05/18 06:57 65 16 100 Mechanical Ventilator 35 04/05/18 06:47 61 15 95 Mechanical Ventilator 35 04/05/18 06:30 61 15 35 04/05/18 06:30 62 20 96/42 (60) 96 04/05/18 06:00 69 12 105/40 (61) 95 04/05/18 06:00 12 Mechanical Ventilator 35 04/05/18 05:40 84 116/45 04/05/18 05:30 73 16 116/45 (68) 97 04/05/18 05:00 76 16 124/49 (74) 98 04/05/18 05:00 19 Mechanical Ventilator 35 04/05/18 04:43 64 12 35 04/05/18 04:30 70 16 119/55 (76) 95 04/05/18 04:00 35 04/05/18 04:00 12 Mechanical Ventilator 35 04/05/18 04:00 98.9 70 16 111/47 (68) 96 04/05/18 04:00 Mechanical Ventilator 04/05/18 03:30 74 16 111/45 (67) 97 04/05/18 03:10 74 04/05/18 03:09 75 14 35 04/05/18 03:00 78 16 127/62 (83) 96 04/05/18 03:00 16 Mechanical Ventilator 35 04/05/18 02:30 73 14 113/44 (67) 96 04/05/18 02:20 16 Mechanical Ventilator 35 04/05/18 02:15 18 Mechanical Ventilator 35 04/05/18 02:00 78 19 110/41 (64) 96 04/05/18 01:58 20 Mechanical Ventilator 35 04/05/18 01:50 20 Mechanical Ventilator 35 04/05/18 01:45 20 Mechanical Ventilator 35 04/05/18 01:40 20 Mechanical Ventilator 35 04/05/18 01:35 21 Mechanical Ventilator 35 04/05/18 01:33 73 14 100 Mechanical Ventilator 35 04/05/18 01:30 20 Mechanical Ventilator 35 04/05/18 01:30 75 21 141/50 (80) 96 04/05/18 01:03 70 12 96 Mechanical Ventilator 35 04/05/18 01:03 70 12 35 04/05/18 01:00 67 12 124/48 (73) 95 04/05/18 00:00 98.7 68 13 116/47 (70) 96 04/05/18 00:00 Mechanical Ventilator 04/05/18 00:00 35 04/04/18 23:30 66 13 115/49 (71) 96 04/04/18 23:05 61 04/04/18 23:05 74 12 35 04/04/18 23:00 62 12 110/43 (65) 96 04/04/18 22:30 62 13 98/40 (59) 96 04/04/18 22:00 64 13 124/40 (68) 95 04/04/18 22:00 13 Mechanical Ventilator 35 04/04/18 21:30 73 158/59 04/04/18 21:30 78 14 129/50 (76) 94 04/04/18 21:24 72 12 35 04/04/18 21:11 14 Mechanical Ventilator 35 04/04/18 21:00 80 14 157/56 (89) 96 04/04/18 20:30 35 04/04/18 20:00 99.3 85 14 123/54 (77) 100 04/04/18 20:00 Mechanical Ventilator 04/04/18 20:00 35 04/04/18 19:58 105 14 100 Mechanical Ventilator 35 04/04/18 19:48 104 14 100 Mechanical Ventilator 35 04/04/18 19:41 104 14 35 04/04/18 19:11 76 04/04/18 19:00 84 16 130/62 (84) 98 04/04/18 17:37 35 04/04/18 17:06 94 16 35 04/04/18 16:00 91 04/04/18 16:00 35 04/04/18 16:00 Mechanical Ventilator 04/04/18 14:54 84 16 35 04/04/18 12:57 83 16 40 04/04/18 12:00 Mechanical Ventilator 04/04/18 12:00 50 04/04/18 12:00 90 04/04/18 11:26 87 16 40 04/04/18 09:39 Endotracheal Tube 04/04/18 09:09 89 16 50 04/04/18 09:00 88 18 101/62 100 Mechanical Ventilator 15.0 50 Micro: Microbiology Date/Time Source Procedure Growth Status 04/04/18 04:45 Blood Blood Culture - Preliminary NO GROWTH AFTER 24 HOURS Resulted 04/04/18 04:30 Blood Blood Culture - Preliminary NO GROWTH AFTER 24 HOURS Resulted 04/04/18 04:45 Nasal Nares Influenza Types A,B Antigen (ENA) - Final Complete Critical Care - Subjective ROS Limited/Unobtainable: Yes Condition: improving FI02: 35 Vent Support Breath Rate: 12 Vent Support Mode: AC Vent Tidal Volume: 400 Sputum Amount: Moderate PEEP: 0.0 PIP: 37 I&O: Intake and Output 04/04/18 04/05/18 18:59 06:59 Intake Total 0 ml 317.2 ml Output Total 335 ml 1310 ml Balance -335 ml -992.8 ml Intake Oral 0 ml IV Total 237.2 ml Other 0 ml 80 ml Output Urine Total 335 ml 1310 ml # Bowel Movements 2 ET-Tube: 7.5 ET Position: 23 Josue Todd MD Apr 05, 2018 08:53
[2018-04-05] MEDS: Eliquis 2.5mg tablet ORAL SCH ×2 (09:00→20:59)
[2018-04-05] MEDS: Heparin 5000 units/ml inj SUBQ SCH (09:00)
[2018-04-05] MEDS: Amiodarone 200mg tab NG SCH (10:13)
[2018-04-05] MEDS: Pantoprazole Inj IV SCH (10:14)
[2018-04-05] MEDS: Vancomycin 500mg/D5W 110ml IVPB SCH ×4 (10:50→20:43)
--- NOTE | 2018-04-05 10:56 | Diagnostic Imaging Report ---
EXAM: XR Chest, 1 View CLINICAL HISTORY: DYSPNEA TECHNIQUE: Frontal view of the chest. COMPARISON: Chest x-rays dated 04/04/18 FINDINGS: Lungs: Persistent prominent interstitial markings, unchanged. Persistent subsegmental atelectasis versus infiltrate in the left lower lung. Pleural space: Persistent small layering left effusion. No visible pneumothorax. Heart: Unremarkable. No cardiomegaly. Mediastinum: Unremarkable. Bones/joints: Unremarkable. Tubes, lines and devices: Relatively unchanged positioning of endotracheal tube, nasogastric tube. EKG leads overlie the thorax. IMPRESSION: No significant interval change compared to the prior chest x-ray. Persistent subsegmental atelectasis versus infiltrate in the left lung base, small left pleural effusion, and prominent interstitial markings.
--- NOTE | 2018-04-05 14:00 | Cardiac Electrophysiology PN ---
Assessment/Plan Assessment/Plan 1. Atrial flutter with rapid ventricular response. Continue Cardizem 90 mg every 8 hours, apixaban 5 mg bid and amiodarone 200 mg daily. 2. Status post Med[employer]onic Micra leadless pacemaker implantation in January of 2016 at [facility]. 3. Respiratory failure to diastolic dysfunction. Her echocardiogram showed EF of 55%. Continue Lasix 40 mg IV every 8 hours, currently on the ventilator. Being weaned 4. Hypertension, on Lasix and Cardizem. 5. Psychosis and schizophrenia, on Risperdal. Subjective Subjective In ICU on Vent more alert being weaned off the vent and Fentanyl drip. Remained in Atrial fib with better rate Objective Last 24 Hour Vital Signs Date Time Temp Pulse Resp B/P (MAP) Pulse Ox O2 Delivery O2 Flow Rate FiO2 04/05/18 13:30 76 18 100 Mechanical Ventilator 35 04/05/18 13:20 79 13 100 Mechanical Ventilator 35 04/05/18 13:00 19 Mechanical Ventilator 35 04/05/18 12:45 68 12 123/48 (73) 97 04/05/18 12:33 79 13 35 04/05/18 12:30 75 20 123/46 (71) 99 04/05/18 12:15 98.9 75 20 125/49 (74) 99 04/05/18 12:00 71 19 128/42 (70) 98 04/05/18 12:00 Mechanical Ventilator 04/05/18 12:00 23 Mechanical Ventilator 35 04/05/18 12:00 35 04/05/18 11:48 68 04/05/18 11:45 70 16 123/42 (69) 94 04/05/18 11:30 70 17 131/60 (83) 94 04/05/18 11:15 72 19 131/60 (83) 98 04/05/18 11:06 69 27 35 04/05/18 11:00 72 19 122/43 (69) 99 04/05/18 11:00 19 Mechanical Ventilator 35 04/05/18 10:30 70 12 113/44 (67) 97 04/05/18 10:00 61 12 110/40 (63) 97 04/05/18 10:00 12 Mechanical Ventilator 35 04/05/18 09:30 64 15 119/40 (66) 98 04/05/18 09:00 68 19 119/43 (68) 98 04/05/18 09:00 19 Mechanical Ventilator 35 04/05/18 08:32 62 14 35 04/05/18 08:30 65 22 109/53 (71) 98 04/05/18 08:27 64 04/05/18 08:00 35 04/05/18 08:00 Mechanical Ventilator 04/05/18 08:00 22 Mechanical Ventilator 35 04/05/18 08:00 98.9 62 16 109/42 (64) 97 04/05/18 07:30 60 13 99/37 (57) 97 04/05/18 07:00 65 17 93/38 (56) 96 04/05/18 07:00 13 Mechanical Ventilator 35 04/05/18 06:57 65 16 100 Mechanical Ventilator 35 04/05/18 06:47 61 15 95 Mechanical Ventilator 35 04/05/18 06:30 61 15 35 04/05/18 06:30 62 20 96/42 (60) 96 04/05/18 06:00 69 12 105/40 (61) 95 04/05/18 06:00 12 Mechanical Ventilator 35 04/05/18 05:40 84 116/45 04/05/18 05:30 73 16 116/45 (68) 97 04/05/18 05:00 76 16 124/49 (74) 98 04/05/18 05:00 19 Mechanical Ventilator 35 04/05/18 04:43 64 12 35 04/05/18 04:30 70 16 119/55 (76) 95 04/05/18 04:00 35 04/05/18 04:00 12 Mechanical Ventilator 35 04/05/18 04:00 98.9 70 16 111/47 (68) 96 04/05/18 04:00 Mechanical Ventilator 04/05/18 03:30 74 16 111/45 (67) 97 04/05/18 03:10 74 04/05/18 03:09 75 14 35 04/05/18 03:00 78 16 127/62 (83) 96 04/05/18 03:00 16 Mechanical Ventilator 35 04/05/18 02:30 73 14 113/44 (67) 96 04/05/18 02:20 16 Mechanical Ventilator 35 04/05/18 02:15 18 Mechanical Ventilator 35 04/05/18 02:00 78 19 110/41 (64) 96 04/05/18 01:58 20 Mechanical Ventilator 35 04/05/18 01:50 20 Mechanical Ventilator 35 04/05/18 01:45 20 Mechanical Ventilator 35 04/05/18 01:40 20 Mechanical Ventilator 35 04/05/18 01:35 21 Mechanical Ventilator 35 04/05/18 01:33 73 14 100 Mechanical Ventilator 35 04/05/18 01:30 20 Mechanical Ventilator 35 04/05/18 01:30 75 21 141/50 (80) 96 04/05/18 01:03 70 12 96 Mechanical Ventilator 35 04/05/18 01:03 70 12 35 04/05/18 01:00 67 12 124/48 (73) 95 04/05/18 00:00 98.7 68 13 116/47 (70) 96 04/05/18 00:00 Mechanical Ventilator 04/05/18 00:00 35 04/04/18 23:30 66 13 115/49 (71) 96 04/04/18 23:05 61 04/04/18 23:05 74 12 35 04/04/18 23:00 62 12 110/43 (65) 96 04/04/18 22:30 62 13 98/40 (59) 96 04/04/18 22:00 64 13 124/40 (68) 95 04/04/18 22:00 13 Mechanical Ventilator 35 04/04/18 21:30 73 158/59 04/04/18 21:30 78 14 129/50 (76) 94 04/04/18 21:24 72 12 35 04/04/18 21:11 14 Mechanical Ventilator 35 04/04/18 21:00 80 14 157/56 (89) 96 04/04/18 20:30 35 04/04/18 20:00 99.3 85 14 123/54 (77) 100 04/04/18 20:00 Mechanical Ventilator 04/04/18 20:00 35 04/04/18 19:58 105 14 100 Mechanical Ventilator 35 04/04/18 19:48 104 14 100 Mechanical Ventilator 35 04/04/18 19:41 104 14 35 04/04/18 19:11 76 04/04/18 19:00 84 16 130/62 (84) 98 04/04/18 17:37 35 04/04/18 17:06 94 16 35 04/04/18 16:00 91 04/04/18 16:00 35 04/04/18 16:00 Mechanical Ventilator 04/04/18 14:54 84 16 35 Intake and Output 04/04/18 04/05/18 18:59 06:59 Intake Total 0 ml 317.2 ml Output Total 335 ml 1310 ml Balance -335 ml -992.8 ml Intake Oral 0 ml IV Total 237.2 ml Other 0 ml 80 ml Output Urine Total 335 ml 1310 ml # Bowel Movements 2 Laboratory Tests Test 04/04/18 19:41 04/05/18 05:20 04/05/18 08:47 04/05/18 08:50 Arterial Blood pH 7.616 (7.350-7.450) 7.580 (7.350-7.450) Arterial Blood Partial Pressure CO2 33.3 mmHg (35.0-45.0) L 38.1 mmHg (35.0-45.0) Arterial Blood Partial Pressure O2 144.9 mmHg (75.0-100.0) H 92.6 mmHg (75.0-100.0) Arterial Blood HCO3 33.2 mmol/L (22.0-26.0) H 35.5 mmol/L (22.0-26.0) H Arterial Blood Oxygen Saturation 98.9 % (95-100) 97.4 % (95-100) Arterial Blood Base Excess 11.4 (-2-2) *H 12.7 (-2-2) *H Ian Test Positive Positive White Blood Count 7.3 K/UL (4.8-10.8) Red Blood Count 3.62 M/UL (4.20-5.40) L Hemoglobin 10.1 G/DL (12.0-16.0) L Hematocrit 31.1 % (37.0-47.0) L Mean Corpuscular Volume 86 FL (80-99) Mean Corpuscular Hemoglobin 27.9 PG (27.0-31.0) Mean Corpuscular Hemoglobin Concent 32.6 G/DL (32.0-36.0) Red Cell Distribution Width 16.0 % (11.6-14.8) H Platelet Count 186 K/UL (150-450) Mean Platelet Volume 6.6 FL (6.5-10.1) Neutrophils (%) (Auto) 73.3 % (45.0-75.0) Lymphocytes (%) (Auto) 16.4 % (20.0-45.0) L Monocytes (%) (Auto) 8.2 % (1.0-10.0) Eosinophils (%) (Auto) 1.1 % (0.0-3.0) Basophils (%) (Auto) 1.0 % (0.0-2.0) Sodium Level 136 MMOL/L (136-145) Potassium Level 3.7 MMOL/L (3.5-5.1) Chloride Level 96 MMOL/L (98-107) L Carbon Dioxide Level 37 MMOL/L (21-32) H Anion Gap 3 mmol/L (5-15) L Blood Urea Nitrogen 14 mg/dL (7-18) Creatinine 1.0 MG/DL (0.55-1.30) # Estimat Glomerular Filtration Rate mL/min (>60) Glucose Level 75 MG/DL (74-106) Calcium Level 8.6 MG/DL (8.5-10.1) Phosphorus Level 2.3 MG/DL (2.5-4.9) L Troponin I 0.037 ng/mL (0.000-0.056) Albumin 2.6 G/DL (3.4-5.0) L Vancomycin Level Trough 12.6 ug/mL (5.0-12.0) H Microbiology Date/Time Source Procedure Growth Status 04/04/18 04:45 Blood Blood Culture - Preliminary NO GROWTH AFTER 24 HOURS Resulted 04/04/18 04:30 Blood Blood Culture - Preliminary NO GROWTH AFTER 24 HOURS Resulted 04/04/18 04:45 Nasal Nares Influenza Types A,B Antigen (ENA) - Final Complete 04/04/18 05:50 Urine,Clean Catch Urine Culture - Preliminary Gram Negative Bacillus 1 Resulted Objective HEAD AND NECK: Orally intubated with NG tube. LUNGS: Coarse rhonchi. CARDIOVASCULAR: Irregular S1 and S2 with no gallop. ABDOMEN: Soft. EXTREMITIES: 1+ pitting edema. Yohan Milian MD Apr 05, 2018 14:00
--- NOTE | 2018-04-05 14:46 | Internal Med Progress Note ---
Subjective Date of Service: Apr 05, 2018 Physician Name Dutta,Juan Attending Physician Yonathan Mendoza MD Current Medications Medications (Trade) Dose Ordered Sig/Ibrahima Route PRN Reason Start Time Stop Time Status Last Admin Dose Admin Acetaminophen (Tylenol) 650 mg Q4H PRN ORAL Fever (temp >100.3) 04/04/18 08:45 05/04/18 08:44 Acetazolamide (Diamox) 125 mg TWICE A DAY NG 04/05/18 18:00 04/07/18 18:00 Albuterol/ Ipratropium (Albuterol/ Ipratropium) 3 ml Q4H PRN HHN Shortness of Breath 04/04/18 08:45 04/09/18 08:44 Amiodarone HCl (Cordarone) 200 mg DAILY NG 04/05/18 09:00 05/05/18 08:59 04/05/18 10:13 Apixaban (Eliquis) 5 mg Q12HR ORAL 04/04/18 21:00 05/04/18 20:59 04/04/18 21:09 Dextrose (Dextrose 50%) 25 ml Q30M PRN IV Hypoglycemia 04/04/18 08:45 05/04/18 08:44 Dextrose (Dextrose 50%) 50 ml Q30M PRN IV Hypoglycemia 04/04/18 10:30 05/04/18 10:29 Diltiazem HCl (Cardizem) 90 mg EVERY 8 HOURS NG 04/04/18 22:00 05/04/18 21:59 04/05/18 14:24 Fentanyl Citrate 1000 mcg/Sodium Chloride 100 ml @ 0 mls/hr Q24H IV 04/04/18 21:00 04/11/18 20:59 04/04/18 21:11 Furosemide (Lasix) 40 mg EVERY 8 HOURS IV 04/04/18 22:00 05/04/18 21:59 04/05/18 14:23 Ipratropium [place] (Atrovent) 500 mcg Q6HRT HHN 04/04/18 19:00 04/09/18 18:59 04/05/18 13:20 Levofloxacin 100 ml @ 100 mls/hr Q24H IVPB 04/05/18 08:00 04/12/18 07:59 04/05/18 07:56 Lorazepam (Ativan 2mg/ml 1ml) 2 mg Q4H PRN IV For Anxiety 04/04/18 08:45 04/11/18 08:44 04/04/18 18:05 Metronidazole 100 ml @ 100 mls/hr Q8HR IVPB 04/04/18 22:00 04/11/18 21:59 04/05/18 14:24 Morphine Sulfate (Morphine Sulfate) 4 mg Q4H PRN IVP For Pain 04/04/18 08:45 04/11/18 08:44 Ondansetron HCl (Zofran) 4 mg Q6H PRN IVP Nausea & Vomiting 04/04/18 08:45 05/04/18 08:44 04/05/18 01:34 Pantoprazole (Protonix) 40 mg DAILY IV 04/04/18 10:15 05/04/18 10:14 04/05/18 10:14 Polyethylene Glycol (Miralax) 17 gm DAILYPRN PRN ORAL Constipation 04/04/18 08:45 05/04/18 08:44 Temazepam (Restoril) 15 mg HSPRN PRN ORAL Insomnia 04/04/18 08:45 04/11/18 08:44 Vancomycin HCl (Vanco rx to dose) 1 ea DAILY PRN MISC Per rx protocol 04/04/18 17:45 05/04/18 17:44 Vancomycin HCl 500 mg/Dextrose 110 ml @ 110 mls/hr Q12HR IVPB 04/05/18 10:30 04/10/18 10:29 04/05/18 10:50 Allergies: Coded Allergies: PIPERACILLIN (Unverified Allergy, Unknown, 03/10/18) TAZOBACTAM (Unverified Allergy, Unknown, 03/10/18) ROS Limited/Unobtainable: Yes Subjective 77 YO F admitted with respiratory failure and atrial flutter wit rapid ventricular rate. Intubated and sedated. Cover for ICU - Dr Mendoza. Objective Last Vital Signs Date Time Temp Pulse Resp B/P (MAP) Pulse Ox O2 Delivery O2 Flow Rate FiO2 04/05/18 14:24 70 127/50 04/05/18 14:00 23 Mechanical Ventilator 35 04/05/18 13:30 100 04/05/18 12:15 98.9 04/04/18 09:00 15.0 General Appearance: WD/WN, no apparent distress EENT: PERRL/EOMI, normal ENT inspection Neck: non-tender, normal alignment, supple Cardiovascular: normal peripheral pulses, regular rhythm, no gallop/murmur, no JVD, tachycardia Respiratory/Chest: chest wall non-tender, respiratory distress, crackles/rales , rhonchi - bilaterally, expiratory wheezing Abdomen: normal bowel sounds, non tender, soft, no organomegaly, no mass Extremities: normal range of motion, non-tender Skin: normal pigmentation, warm/dry Laboratory Tests Test 04/04/18 19:41 04/05/18 05:20 04/05/18 08:47 04/05/18 08:50 Arterial Blood pH 7.616 (7.350-7.450) 7.580 (7.350-7.450) Arterial Blood Partial Pressure CO2 33.3 mmHg (35.0-45.0) L 38.1 mmHg (35.0-45.0) Arterial Blood Partial Pressure O2 144.9 mmHg (75.0-100.0) H 92.6 mmHg (75.0-100.0) Arterial Blood HCO3 33.2 mmol/L (22.0-26.0) H 35.5 mmol/L (22.0-26.0) H Arterial Blood Oxygen Saturation 98.9 % (95-100) 97.4 % (95-100) Arterial Blood Base Excess 11.4 (-2-2) *H 12.7 (-2-2) *H Ian Test Positive Positive White Blood Count 7.3 K/UL (4.8-10.8) Red Blood Count 3.62 M/UL (4.20-5.40) L Hemoglobin 10.1 G/DL (12.0-16.0) L Hematocrit 31.1 % (37.0-47.0) L Mean Corpuscular Volume 86 FL (80-99) Mean Corpuscular Hemoglobin 27.9 PG (27.0-31.0) Mean Corpuscular Hemoglobin Concent 32.6 G/DL (32.0-36.0) Red Cell Distribution Width 16.0 % (11.6-14.8) H Platelet Count 186 K/UL (150-450) Mean Platelet Volume 6.6 FL (6.5-10.1) Neutrophils (%) (Auto) 73.3 % (45.0-75.0) Lymphocytes (%) (Auto) 16.4 % (20.0-45.0) L Monocytes (%) (Auto) 8.2 % (1.0-10.0) Eosinophils (%) (Auto) 1.1 % (0.0-3.0) Basophils (%) (Auto) 1.0 % (0.0-2.0) Sodium Level 136 MMOL/L (136-145) Potassium Level 3.7 MMOL/L (3.5-5.1) Chloride Level 96 MMOL/L (98-107) L Carbon Dioxide Level 37 MMOL/L (21-32) H Anion Gap 3 mmol/L (5-15) L Blood Urea Nitrogen 14 mg/dL (7-18) Creatinine 1.0 MG/DL (0.55-1.30) # Estimat Glomerular Filtration Rate mL/min (>60) Glucose Level 75 MG/DL (74-106) Calcium Level 8.6 MG/DL (8.5-10.1) Phosphorus Level 2.3 MG/DL (2.5-4.9) L Troponin I 0.037 ng/mL (0.000-0.056) Albumin 2.6 G/DL (3.4-5.0) L Vancomycin Level Trough 12.6 ug/mL (5.0-12.0) H Microbiology Date/Time Source Procedure Growth Status 04/04/18 04:45 Blood Blood Culture - Preliminary NO GROWTH AFTER 24 HOURS Resulted 04/04/18 04:30 Blood Blood Culture - Preliminary NO GROWTH AFTER 24 HOURS Resulted 04/04/18 04:45 Nasal Nares Influenza Types A,B Antigen (ENA) - Final Complete 04/04/18 05:50 Urine,Clean Catch Urine Culture - Preliminary Gram Negative Bacillus 1 Resulted Intake and Output 04/04/18 04/05/18 18:59 06:59 Intake Total 0 ml 317.2 ml Output Total 335 ml 1310 ml Balance -335 ml -992.8 ml Intake Oral 0 ml IV Total 237.2 ml Other 0 ml 80 ml Output Urine Total 335 ml 1310 ml # Bowel Movements 2 Assessment/Plan Problem List: (1) Pneumonia Assessment & Plan: Continue vanco and levaquin (2) Atrial fibrillation with RVR Assessment & Plan: Cntinue miodarone-See cardiology note. (3) CHF (congestive heart failure) (4) COPD (chronic obstructive pulmonary disease) (5) Pacemaker (6) CAD (coronary artery disease) (7) Seizure disorder (8) Bipolar depression (9) Respiratory failure, acute Assessment & Plan: Continue vent per pulmonary Status: not improved Juan Dutta MD Apr 05, 2018 14:46
[2018-04-05] MEDS: LORazepam Inj 2mg/ml 1ml IV PRN (20:02)
[2018-04-06] VITALS (41 sets, daily range): BP systolic 81–115; BP diastolic 32–62
[2018-04-06] MEDS: Ipratropium 0.02% Inh Soln 2.5ml UD HHN SCH ×4 (01:28→18:55)
[2018-04-06] MEDS: dilTIAZem HCl 90mg tab NG SCH ×3 (05:32→21:07)
[2018-04-06] MEDS: Pantoprazole Inj IV SCH (08:42)
[2018-04-06] MEDS: Eliquis 2.5mg tablet ORAL SCH ×2 (08:43→20:27)
[2018-04-06] MEDS: Amiodarone 200mg tab NG SCH (08:43)
[2018-04-06] MEDS: Vancomycin 500mg/D5W 110ml IVPB SCH ×4 (08:44→20:27)
[2018-04-06 09:17] LABS: BASOPHILS % (AUTO) 1.1 % (0.0-2.0); HEMATOCRIT 32.2 % (37.0-47.0); HEMOGLOBIN 10.6 G/DL (12.0-16.0); LYMPHOCYTES % (AUTO) 9.6 % (20.0-45.0); MEAN CORPUSCULAR VOLUME 87 FL (80-99); MONOCYTES % (AUTO) 9.3 % (1.0-10.0); PLATELET COUNT 201 K/UL (150-450); RED CELL DISTRIBUTION WIDTH 16.2 % (11.6-14.8); WHITE BLOOD COUNT 7.7 K/UL (4.8-10.8)
[2018-04-06 09:31] LABS: ALANINE AMINOTRANSFERASE 14 U/L (12-78); ALBUMIN 2.4 G/DL (3.4-5.0); ALBUMIN/GLOBULIN RATIO 0.8 (1.0-2.7); ALKALINE PHOSPHATASE 51 U/L (46-116); ANION GAP 5 mmol/L (5-15); ASPARTATE AMINO TRANSFERASE 16 U/L (15-37); BILIRUBIN,TOTAL 0.6 MG/DL (0.2-1.0); BLOOD UREA NITROGEN 14 mg/dL (7-18); CALCIUM 8.2 MG/DL (8.5-10.1); CARBON DIOXIDE 34 MMOL/L (21-32); CHLORIDE 101 MMOL/L (98-107); POTASSIUM 2.8 MMOL/L (3.5-5.1); SODIUM 140 MMOL/L (136-145)
--- NOTE | 2018-04-06 09:42 | Cardiology Report ---
APPROVED REPORT EXAM: Two-dimensional and M-mode echocardiogram with Doppler and color Doppler. INDICATION Left Ventricular Function M-Mode DIMENSIONS IVSd1.9 (0.7-1.1cm)Left Atrium (MM)4.6 (1.6-4.0cm) LVDd2.4 (3.5-5.6cm)Aortic Root2.5 (2.0-3.7cm) PWd1.4 (0.7-1.1cm)Aortic Cusp Exc.1.4 (1.5-2.0cm) LVDs1.0 (2.5-4.0cm) PWs1.6 cm Technically difficult study due to poor acoustic windows. Study quality precludes accurate assessment of regional wall motion. Normal left ventricular chamber size, systolic function and wall motion. Left ventricular ejection fraction estimated to be 55 %. Moderate left ventricular hypertrophy. Small posterior pericardial effusion. Small pleural effusion. Mild left atrial enlargement. Right cardiac chamber sizes are within normal limits. Heavy focal aortic valve sclerosis with reduced cusp excursion. Heavily thickened mitral valve leaflets with reduced excursion. Echogenic material on mitral valve leaflets, likely calcification. Heavy mitral annulus and aortic root calcification. Normal pulmonic valve structure. Normal tricuspid valve structure. IVC is normal in size without physiological collapse, suggestive of increased RA pressure. A color flow and spectral Doppler study was performed and revealed: Mild aortic insufficiency. Peak aortic valve gradient of 20 mmHg and a mean of 11 mmHg. Aortic valve area 1.7 cm2 calculated by continuity equation consistent with mild aortic stenosis. Mild to moderate mitral regurgitation. Mitral P1/2 time of 94 m/s is compatible with a mitral valve area of 2.2 cm2. Peak mitral valve diastolic gradient of 12 mmHg and a mean gradient of 5 mmHg. Left ventricular diastolic function could not be determined due to A-Fib. Trace tricuspid regurgitation. Tricuspid systolic velocities suggests peak right ventricular systolic pressure of 28 mmHg. Trace pulmonic regurgitation present.
--- NOTE | 2018-04-06 10:06 | Pulmonolgy Critical Care Note ---
Critical Care - Asmt/Plan Problems: (1) Respiratory failure, acute (2) Acute encephalopathy (3) Sepsis (4) Atrial fibrillation with RVR (5) Acute diastolic CHF (congestive heart failure) (6) COPD (chronic obstructive pulmonary disease) (7) Bipolar depression (8) Dementia Respiratory: adjust tidal volume, monitor respiratory rate, adjust FIO2 Cardiac: continue to monitor HR/BP Renal: F/U I&O, check electrolytes Infectious Disease: check cultures Gastrointestinal: continue feedings/current rate Endocrine: monitor blood sugar Hematologic: monitor H/H, transfuse if hgb<8.5 Neurologic: keep patient comfortable Affect: PRN ativan Prophylaxis: Heparin Time Spent (Minutes): 40 Discussed with: nurses, consultants Critical Care - Objective Last 24 Hour Vital Signs Date Time Temp Pulse Resp B/P (MAP) Pulse Ox O2 Delivery O2 Flow Rate FiO2 04/06/18 09:15 60 14 35 04/06/18 08:00 35 04/06/18 08:00 99.4 60 12 85/32 (49) 97 04/06/18 08:00 Mechanical Ventilator 04/06/18 07:02 62 12 99 Mechanical Ventilator 35 04/06/18 07:00 60 12 88/35 (52) 96 04/06/18 07:00 12 Mechanical Ventilator 35 04/06/18 06:52 60 12 96 Mechanical Ventilator 35 04/06/18 06:51 60 12 35 04/06/18 06:50 12 Mechanical Ventilator 35 04/06/18 06:30 60 12 91/36 (54) 96 04/06/18 06:30 12 Mechanical Ventilator 35 04/06/18 06:05 12 Mechanical Ventilator 35 04/06/18 06:00 12 Mechanical Ventilator 35 04/06/18 06:00 60 12 100/44 (62) 96 04/06/18 05:32 60 101/41 04/06/18 05:30 61 12 106/41 (62) 97 04/06/18 05:27 60 14 35 04/06/18 05:00 61 12 110/40 (63) 97 04/06/18 05:00 12 Mechanical Ventilator 35 04/06/18 04:30 60 12 94/37 (56) 96 04/06/18 04:00 35 04/06/18 04:00 98.4 60 12 94/37 (56) 97 04/06/18 04:00 12 Mechanical Ventilator 35 04/06/18 04:00 Mechanical Ventilator 04/06/18 03:43 60 04/06/18 03:30 67 14 108/62 (77) 97 04/06/18 03:00 60 12 102/40 (60) 97 04/06/18 03:00 20 Mechanical Ventilator 35 04/06/18 02:33 60 12 35 04/06/18 02:30 60 12 102/44 (63) 96 04/06/18 02:00 60 12 97/39 (58) 100 04/06/18 02:00 12 Mechanical Ventilator 35 04/06/18 01:43 60 12 100 Mechanical Ventilator 35 04/06/18 01:30 60 12 99/36 (57) 100 04/06/18 01:27 61 12 97 Mechanical Ventilator 35 04/06/18 01:26 61 12 35 04/06/18 01:00 12 Mechanical Ventilator 35 04/06/18 01:00 60 12 105/41 (62) 98 04/06/18 00:30 60 12 99/41 (60) 96 04/06/18 00:00 98.4 60 21 98/35 (56) 96 04/06/18 00:00 Mechanical Ventilator 04/06/18 00:00 21 Mechanical Ventilator 35 04/06/18 00:00 35 04/05/18 23:30 60 18 98/35 (56) 96 04/05/18 23:25 62 12 35 04/05/18 23:04 60 04/05/18 23:00 12 Mechanical Ventilator 35 04/05/18 23:00 60 12 100/43 (62) 96 04/05/18 22:30 61 12 96/39 (58) 96 04/05/18 22:00 14 Mechanical Ventilator 35 04/05/18 22:00 67 14 115/43 (67) 96 04/05/18 21:38 66 119/39 04/05/18 21:30 71 15 132/45 (74) 97 04/05/18 21:08 75 15 35 04/05/18 21:02 15 Mechanical Ventilator 35 04/05/18 21:00 67 12 120/42 (68) 96 04/05/18 21:00 19 Mechanical Ventilator 35 04/05/18 20:30 67 14 120/42 (68) 96 04/05/18 20:00 Mechanical Ventilator 04/05/18 20:00 98.6 67 17 120/42 (68) 98 04/05/18 20:00 35 04/05/18 19:55 15 Mechanical Ventilator 35 04/05/18 19:50 17 Mechanical Ventilator 35 04/05/18 19:45 24 Mechanical Ventilator 35 04/05/18 19:40 22 Mechanical Ventilator 35 04/05/18 19:35 65 15 100 Mechanical Ventilator 35 04/05/18 19:35 24 Mechanical Ventilator 35 04/05/18 19:30 66 14 120/42 (68) 99 04/05/18 19:27 65 12 99 Mechanical Ventilator 35 04/05/18 19:25 69 12 35 04/05/18 19:12 64 04/05/18 19:00 62 17 120/42 (68) 96 04/05/18 18:30 62 17 123/38 (66) 99 04/05/18 18:00 22 Mechanical Ventilator 35 04/05/18 18:00 66 16 106/43 (64) 99 04/05/18 17:30 63 16 110/34 (59) 96 04/05/18 17:00 66 19 115/41 (65) 97 04/05/18 17:00 19 Mechanical Ventilator 35 04/05/18 16:41 63 9 35 04/05/18 16:30 61 16 103/38 (59) 96 04/05/18 16:00 Mechanical Ventilator 04/05/18 16:00 99.0 61 18 108/40 (62) 96 04/05/18 16:00 18 Mechanical Ventilator 35 04/05/18 15:43 60 04/05/18 15:30 61 19 103/36 (58) 97 04/05/18 15:00 27 Mechanical Ventilator 35 04/05/18 15:00 66 22 102/40 (60) 97 04/05/18 14:30 77 28 35 04/05/18 14:30 71 22 128/42 (70) 95 04/05/18 14:24 70 127/50 04/05/18 14:00 74 22 129/43 (71) 97 04/05/18 14:00 23 Mechanical Ventilator 35 04/05/18 13:30 76 18 100 Mechanical Ventilator 35 04/05/18 13:30 70 13 137/42 (73) 98 04/05/18 13:24 35 04/05/18 13:20 79 13 100 Mechanical Ventilator 35 04/05/18 13:00 72 18 126/41 (69) 100 04/05/18 13:00 19 Mechanical Ventilator 35 04/05/18 12:45 68 12 123/48 (73) 97 04/05/18 12:33 79 13 35 04/05/18 12:30 75 20 123/46 (71) 99 04/05/18 12:15 98.9 75 20 125/49 (74) 99 04/05/18 12:00 71 19 128/42 (70) 98 04/05/18 12:00 Mechanical Ventilator 04/05/18 12:00 23 Mechanical Ventilator 35 04/05/18 12:00 35 04/05/18 11:48 68 04/05/18 11:45 70 16 123/42 (69) 94 04/05/18 11:30 70 17 131/60 (83) 94 04/05/18 11:15 72 19 131/60 (83) 98 04/05/18 11:06 69 27 35 04/05/18 11:00 72 19 122/43 (69) 99 04/05/18 11:00 19 Mechanical Ventilator 35 04/05/18 10:30 70 12 113/44 (67) 97 Status: sedated Condition: critical HEENT: atraumatic Lungs: clear Heart: HR/BP stable Abdomen: soft, active bowel sounds Extremities: edema Decubiti: stage Micro: Microbiology Date/Time Source Procedure Growth Status 04/04/18 04:45 Blood Blood Culture - Preliminary NO GROWTH AFTER 48 HOURS Resulted 04/04/18 04:30 Blood Blood Culture - Preliminary NO GROWTH AFTER 48 HOURS Resulted 04/05/18 09:40 Sputum Induced Gram Stain Pending Resulted 04/05/18 09:40 Sputum Induced Sputum Culture - Preliminary NO GROWTH Resulted 04/04/18 14:28 Nasal Nares Left MRSA Culture - Final Staphylococcus Aureus - Mrsa Complete 04/04/18 04:45 Nasal Nares Influenza Types A,B Antigen (ENA) - Final Complete 04/04/18 05:50 Urine,Clean Catch Urine Culture - Final Proteus Mirabilis Complete 04/04/18 09:00 Rectum - Final NO CARBAPENEM-RESISTANT ENTEROBACTERI... Complete 04/04/18 06:00 Rectum VRE Culture - Final Enterococcus Faecalis - Vre Complete Critical Care - Subjective ROS Limited/Unobtainable: Yes ICU Day: 3 Intubation Day: 3 Condition: critical EKG Rhythm: Sinus Rhythm FI02: 35 Vent Support Breath Rate: 12 Vent Support Mode: AC Vent Tidal Volume: 400 Sputum Amount: Scant PEEP: 0.0 PIP: 22 Tube Feeding Amount: 40 I&O: Intake and Output 04/05/18 04/06/18 19:00 07:00 Intake Total 1088.5 ml 1036.0 ml Output Total 1995 ml 1210 ml Balance -906.5 ml -174.0 ml Free Water 50 ml IV Total 758.5 ml 576.0 ml Tube Feeding 180 ml 370 ml Other 100 ml 90 ml Output Urine Total 1995 ml 1210 ml CXR: ET in good position ET-Tube: 7.5 ET Position: 23 Labs: Laboratory Tests Test 04/06/18 09:00 White Blood Count 7.7 K/UL (4.8-10.8) Red Blood Count 3.70 M/UL (4.20-5.40) L Hemoglobin 10.6 G/DL (12.0-16.0) L Hematocrit 32.2 % (37.0-47.0) L Mean Corpuscular Volume 87 FL (80-99) Mean Corpuscular Hemoglobin 28.7 PG (27.0-31.0) Mean Corpuscular Hemoglobin Concent 33.0 G/DL (32.0-36.0) Red Cell Distribution Width 16.2 % (11.6-14.8) H Platelet Count 201 K/UL (150-450) Mean Platelet Volume 6.7 FL (6.5-10.1) Neutrophils (%) (Auto) 78.0 % (45.0-75.0) H Lymphocytes (%) (Auto) 9.6 % (20.0-45.0) L Monocytes (%) (Auto) 9.3 % (1.0-10.0) Eosinophils (%) (Auto) 2.0 % (0.0-3.0) Basophils (%) (Auto) 1.1 % (0.0-2.0) Sodium Level 140 MMOL/L (136-145) Potassium Level 2.8 MMOL/L (3.5-5.1) L Chloride Level 101 MMOL/L (98-107) Carbon Dioxide Level 34 MMOL/L (21-32) H Anion Gap 5 mmol/L (5-15) Blood Urea Nitrogen 14 mg/dL (7-18) Creatinine 1.0 MG/DL (0.55-1.30) Estimat Glomerular Filtration Rate mL/min (>60) Glucose Level 103 MG/DL (74-106) Calcium Level 8.2 MG/DL (8.5-10.1) L Total Bilirubin 0.6 MG/DL (0.2-1.0) Aspartate Amino Transf (AST/SGOT) 16 U/L (15-37) Alanine Aminotransferase (ALT/SGPT) 14 U/L (12-78) Alkaline Phosphatase 51 U/L (46-116) Troponin I 0.033 ng/mL (0.000-0.056) Total Protein 5.5 G/DL (6.4-8.2) L Albumin 2.4 G/DL (3.4-5.0) L Globulin 3.1 g/dL Albumin/Globulin Ratio 0.8 (1.0-2.7) L Mendel Sierra MD Apr 06, 2018 10:06
--- NOTE | 2018-04-06 10:49 | Cardiac Electrophysiology PN ---
Assessment/Plan Assessment/Plan 1. Atrial flutter with rapid ventricular response. rate controlled. Continue Cardizem 90 mg every 8 hours, apixaban 5 mg bid and amiodarone 200 mg daily. 2. Status post Medtronic Micra leadless pacemaker implantation in January of 2016 at [facility]. 3. Respiratory failure to diastolic dysfunction. EF of 55%. Continue Lasix 40 mg IV every 8 hours, currently on the ventilator. Being weaned 4. Hypertension, on Lasix and Cardizem. 5. Psychosis and schizophrenia, on Risperdal. DYLAN RN Subjective Subjective In ICU on Vent on IMV being weaned off the vent and Fentanyl drip. Remained in Atrial fib with controlled rate Objective Last 24 Hour Vital Signs Date Time Temp Pulse Resp B/P (MAP) Pulse Ox O2 Delivery O2 Flow Rate FiO2 04/06/18 10:04 60 21 35 04/06/18 10:01 95 04/06/18 09:15 60 14 35 04/06/18 08:00 35 04/06/18 08:00 99.4 60 12 85/32 (49) 97 04/06/18 08:00 Mechanical Ventilator 04/06/18 07:02 62 12 99 Mechanical Ventilator 35 04/06/18 07:00 60 12 88/35 (52) 96 04/06/18 07:00 12 Mechanical Ventilator 35 04/06/18 06:52 60 12 96 Mechanical Ventilator 35 04/06/18 06:51 60 12 35 04/06/18 06:50 12 Mechanical Ventilator 35 04/06/18 06:30 60 12 91/36 (54) 96 04/06/18 06:30 12 Mechanical Ventilator 35 04/06/18 06:05 12 Mechanical Ventilator 35 04/06/18 06:00 12 Mechanical Ventilator 35 04/06/18 06:00 60 12 100/44 (62) 96 04/06/18 05:32 60 101/41 04/06/18 05:30 61 12 106/41 (62) 97 04/06/18 05:27 60 14 35 04/06/18 05:00 61 12 110/40 (63) 97 04/06/18 05:00 12 Mechanical Ventilator 35 04/06/18 04:30 60 12 94/37 (56) 96 04/06/18 04:00 35 04/06/18 04:00 98.4 60 12 94/37 (56) 97 04/06/18 04:00 12 Mechanical Ventilator 35 04/06/18 04:00 Mechanical Ventilator 04/06/18 03:43 60 04/06/18 03:30 67 14 108/62 (77) 97 04/06/18 03:00 60 12 102/40 (60) 97 04/06/18 03:00 20 Mechanical Ventilator 35 04/06/18 02:33 60 12 35 04/06/18 02:30 60 12 102/44 (63) 96 04/06/18 02:00 60 12 97/39 (58) 100 04/06/18 02:00 12 Mechanical Ventilator 35 04/06/18 01:43 60 12 100 Mechanical Ventilator 35 04/06/18 01:30 60 12 99/36 (57) 100 04/06/18 01:27 61 12 97 Mechanical Ventilator 35 04/06/18 01:26 61 12 35 04/06/18 01:00 12 Mechanical Ventilator 35 04/06/18 01:00 60 12 105/41 (62) 98 04/06/18 00:30 60 12 99/41 (60) 96 04/06/18 00:00 98.4 60 21 98/35 (56) 96 04/06/18 00:00 Mechanical Ventilator 04/06/18 00:00 21 Mechanical Ventilator 35 04/06/18 00:00 35 04/05/18 23:30 60 18 98/35 (56) 96 04/05/18 23:25 62 12 35 04/05/18 23:04 60 04/05/18 23:00 12 Mechanical Ventilator 35 04/05/18 23:00 60 12 100/43 (62) 96 04/05/18 22:30 61 12 96/39 (58) 96 04/05/18 22:00 14 Mechanical Ventilator 35 04/05/18 22:00 67 14 115/43 (67) 96 04/05/18 21:38 66 119/39 04/05/18 21:30 71 15 132/45 (74) 97 04/05/18 21:08 75 15 35 04/05/18 21:02 15 Mechanical Ventilator 35 04/05/18 21:00 67 12 120/42 (68) 96 04/05/18 21:00 19 Mechanical Ventilator 35 04/05/18 20:30 67 14 120/42 (68) 96 04/05/18 20:00 Mechanical Ventilator 04/05/18 20:00 98.6 67 17 120/42 (68) 98 04/05/18 20:00 35 04/05/18 19:55 15 Mechanical Ventilator 35 04/05/18 19:50 17 Mechanical Ventilator 35 04/05/18 19:45 24 Mechanical Ventilator 35 04/05/18 19:40 22 Mechanical Ventilator 35 04/05/18 19:35 65 15 100 Mechanical Ventilator 35 04/05/18 19:35 24 Mechanical Ventilator 35 04/05/18 19:30 66 14 120/42 (68) 99 04/05/18 19:27 65 12 99 Mechanical Ventilator 35 04/05/18 19:25 69 12 35 04/05/18 19:12 64 04/05/18 19:00 62 17 120/42 (68) 96 04/05/18 18:30 62 17 123/38 (66) 99 04/05/18 18:00 22 Mechanical Ventilator 35 04/05/18 18:00 66 16 106/43 (64) 99 04/05/18 17:30 63 16 110/34 (59) 96 04/05/18 17:00 66 19 115/41 (65) 97 04/05/18 17:00 19 Mechanical Ventilator 35 04/05/18 16:41 63 9 35 04/05/18 16:30 61 16 103/38 (59) 96 04/05/18 16:00 Mechanical Ventilator 04/05/18 16:00 99.0 61 18 108/40 (62) 96 04/05/18 16:00 18 Mechanical Ventilator 35 04/05/18 15:43 60 04/05/18 15:30 61 19 103/36 (58) 97 04/05/18 15:00 27 Mechanical Ventilator 35 04/05/18 15:00 66 22 102/40 (60) 97 04/05/18 14:30 77 28 35 04/05/18 14:30 71 22 128/42 (70) 95 04/05/18 14:24 70 127/50 04/05/18 14:00 74 22 129/43 (71) 97 04/05/18 14:00 23 Mechanical Ventilator 35 04/05/18 13:30 76 18 100 Mechanical Ventilator 35 04/05/18 13:30 70 13 137/42 (73) 98 04/05/18 13:24 35 04/05/18 13:20 79 13 100 Mechanical Ventilator 35 04/05/18 13:00 72 18 126/41 (69) 100 04/05/18 13:00 19 Mechanical Ventilator 35 04/05/18 12:45 68 12 123/48 (73) 97 04/05/18 12:33 79 13 35 04/05/18 12:30 75 20 123/46 (71) 99 04/05/18 12:15 98.9 75 20 125/49 (74) 99 04/05/18 12:00 71 19 128/42 (70) 98 04/05/18 12:00 Mechanical Ventilator 04/05/18 12:00 23 Mechanical Ventilator 35 04/05/18 12:00 35 04/05/18 11:48 68 04/05/18 11:45 70 16 123/42 (69) 94 04/05/18 11:30 70 17 131/60 (83) 94 04/05/18 11:15 72 19 131/60 (83) 98 04/05/18 11:06 69 27 35 04/05/18 11:00 72 19 122/43 (69) 99 04/05/18 11:00 19 Mechanical Ventilator 35 Intake and Output 04/05/18 04/06/18 19:00 07:00 Intake Total 1088.5 ml 1036.0 ml Output Total 1995 ml 1210 ml Balance -906.5 ml -174.0 ml Free Water 50 ml IV Total 758.5 ml 576.0 ml Tube Feeding 180 ml 370 ml Other 100 ml 90 ml Output Urine Total 1995 ml 1210 ml Laboratory Tests Test 04/06/18 09:00 White Blood Count 7.7 K/UL (4.8-10.8) Red Blood Count 3.70 M/UL (4.20-5.40) L Hemoglobin 10.6 G/DL (12.0-16.0) L Hematocrit 32.2 % (37.0-47.0) L Mean Corpuscular Volume 87 FL (80-99) Mean Corpuscular Hemoglobin 28.7 PG (27.0-31.0) Mean Corpuscular Hemoglobin Concent 33.0 G/DL (32.0-36.0) Red Cell Distribution Width 16.2 % (11.6-14.8) H Platelet Count 201 K/UL (150-450) Mean Platelet Volume 6.7 FL (6.5-10.1) Neutrophils (%) (Auto) 78.0 % (45.0-75.0) H Lymphocytes (%) (Auto) 9.6 % (20.0-45.0) L Monocytes (%) (Auto) 9.3 % (1.0-10.0) Eosinophils (%) (Auto) 2.0 % (0.0-3.0) Basophils (%) (Auto) 1.1 % (0.0-2.0) Sodium Level 140 MMOL/L (136-145) Potassium Level 2.8 MMOL/L (3.5-5.1) L Chloride Level 101 MMOL/L (98-107) Carbon Dioxide Level 34 MMOL/L (21-32) H Anion Gap 5 mmol/L (5-15) Blood Urea Nitrogen 14 mg/dL (7-18) Creatinine 1.0 MG/DL (0.55-1.30) Estimat Glomerular Filtration Rate mL/min (>60) Glucose Level 103 MG/DL (74-106) Calcium Level 8.2 MG/DL (8.5-10.1) L Total Bilirubin 0.6 MG/DL (0.2-1.0) Aspartate Amino Transf (AST/SGOT) 16 U/L (15-37) Alanine Aminotransferase (ALT/SGPT) 14 U/L (12-78) Alkaline Phosphatase 51 U/L (46-116) Troponin I 0.033 ng/mL (0.000-0.056) Total Protein 5.5 G/DL (6.4-8.2) L Albumin 2.4 G/DL (3.4-5.0) L Globulin 3.1 g/dL Albumin/Globulin Ratio 0.8 (1.0-2.7) L Microbiology Date/Time Source Procedure Growth Status 04/04/18 04:45 Blood Blood Culture - Preliminary NO GROWTH AFTER 48 HOURS Resulted 04/04/18 04:30 Blood Blood Culture - Preliminary NO GROWTH AFTER 48 HOURS Resulted 04/05/18 09:40 Sputum Induced Gram Stain Pending Resulted 04/05/18 09:40 Sputum Induced Sputum Culture - Preliminary NO GROWTH Resulted 04/04/18 14:28 Nasal Nares Left MRSA Culture - Final Staphylococcus Aureus - Mrsa Complete 04/04/18 04:45 Nasal Nares Influenza Types A,B Antigen (ENA) - Final Complete 04/04/18 05:50 Urine,Clean Catch Urine Culture - Final Proteus Mirabilis Complete 04/04/18 09:00 Rectum - Final NO CARBAPENEM-RESISTANT ENTEROBACTERI... Complete 04/04/18 06:00 Rectum VRE Culture - Final Enterococcus Faecalis - Vre Complete Objective HEAD AND NECK: Orally intubated with NG tube. LUNGS: Coarse rhonchi. CARDIOVASCULAR: Irregular S1 and S2 with no gallop. ABDOMEN: Soft. EXTREMITIES: 1+ pitting edema. Yohan Milian MD Apr 06, 2018 10:49
--- NOTE | 2018-04-06 11:02 | General Progress Note ---
Assessment/Plan Problem List: (1) Schizophrenia ICD Codes: F20.9 - Schizophrenia, unspecified SNOMED: 80941154 (2) Encephalopathy acute ICD Codes: G93.40 - Encephalopathy, unspecified SNOMED: 5762837 Status: unchanged Assessment/Plan Ativan IM prn haldol IM prn the pts Risperdal was discontinued Subjective Date patient seen: Apr 06, 2018 Neurologic/Psychiatric: Reports: anxiety, depressed, emotional problems Allergies: Coded Allergies: PIPERACILLIN (Unverified Allergy, Unknown, 03/10/18) TAZOBACTAM (Unverified Allergy, Unknown, 03/10/18) Objective Last 24 Hour Vital Signs Date Time Temp Pulse Resp B/P (MAP) Pulse Ox O2 Delivery O2 Flow Rate FiO2 04/06/18 10:04 60 21 35 04/06/18 10:01 95 04/06/18 09:15 60 14 35 04/06/18 08:00 35 04/06/18 08:00 99.4 60 12 85/32 (49) 97 04/06/18 08:00 Mechanical Ventilator 04/06/18 07:02 62 12 99 Mechanical Ventilator 35 04/06/18 07:00 60 12 88/35 (52) 96 04/06/18 07:00 12 Mechanical Ventilator 35 04/06/18 06:52 60 12 96 Mechanical Ventilator 35 04/06/18 06:51 60 12 35 04/06/18 06:50 12 Mechanical Ventilator 35 04/06/18 06:30 60 12 91/36 (54) 96 04/06/18 06:30 12 Mechanical Ventilator 35 04/06/18 06:05 12 Mechanical Ventilator 35 04/06/18 06:00 12 Mechanical Ventilator 35 04/06/18 06:00 60 12 100/44 (62) 96 04/06/18 05:32 60 101/41 04/06/18 05:30 61 12 106/41 (62) 97 04/06/18 05:27 60 14 35 04/06/18 05:00 61 12 110/40 (63) 97 04/06/18 05:00 12 Mechanical Ventilator 35 04/06/18 04:30 60 12 94/37 (56) 96 04/06/18 04:00 35 04/06/18 04:00 98.4 60 12 94/37 (56) 97 04/06/18 04:00 12 Mechanical Ventilator 35 04/06/18 04:00 Mechanical Ventilator 04/06/18 03:43 60 04/06/18 03:30 67 14 108/62 (77) 97 04/06/18 03:00 60 12 102/40 (60) 97 04/06/18 03:00 20 Mechanical Ventilator 35 04/06/18 02:33 60 12 35 04/06/18 02:30 60 12 102/44 (63) 96 04/06/18 02:00 60 12 97/39 (58) 100 04/06/18 02:00 12 Mechanical Ventilator 35 04/06/18 01:43 60 12 100 Mechanical Ventilator 35 04/06/18 01:30 60 12 99/36 (57) 100 04/06/18 01:27 61 12 97 Mechanical Ventilator 35 04/06/18 01:26 61 12 35 04/06/18 01:00 12 Mechanical Ventilator 35 04/06/18 01:00 60 12 105/41 (62) 98 04/06/18 00:30 60 12 99/41 (60) 96 04/06/18 00:00 98.4 60 21 98/35 (56) 96 04/06/18 00:00 Mechanical Ventilator 04/06/18 00:00 21 Mechanical Ventilator 35 04/06/18 00:00 35 04/05/18 23:30 60 18 98/35 (56) 96 04/05/18 23:25 62 12 35 04/05/18 23:04 60 04/05/18 23:00 12 Mechanical Ventilator 35 04/05/18 23:00 60 12 100/43 (62) 96 04/05/18 22:30 61 12 96/39 (58) 96 04/05/18 22:00 14 Mechanical Ventilator 35 04/05/18 22:00 67 14 115/43 (67) 96 04/05/18 21:38 66 119/39 04/05/18 21:30 71 15 132/45 (74) 97 04/05/18 21:08 75 15 35 04/05/18 21:02 15 Mechanical Ventilator 35 04/05/18 21:00 67 12 120/42 (68) 96 04/05/18 21:00 19 Mechanical Ventilator 35 04/05/18 20:30 67 14 120/42 (68) 96 04/05/18 20:00 Mechanical Ventilator 04/05/18 20:00 98.6 67 17 120/42 (68) 98 04/05/18 20:00 35 04/05/18 19:55 15 Mechanical Ventilator 35 04/05/18 19:50 17 Mechanical Ventilator 35 04/05/18 19:45 24 Mechanical Ventilator 35 04/05/18 19:40 22 Mechanical Ventilator 35 04/05/18 19:35 65 15 100 Mechanical Ventilator 35 04/05/18 19:35 24 Mechanical Ventilator 35 04/05/18 19:30 66 14 120/42 (68) 99 04/05/18 19:27 65 12 99 Mechanical Ventilator 35 04/05/18 19:25 69 12 35 04/05/18 19:12 64 04/05/18 19:00 62 17 120/42 (68) 96 04/05/18 18:30 62 17 123/38 (66) 99 04/05/18 18:00 22 Mechanical Ventilator 35 04/05/18 18:00 66 16 106/43 (64) 99 04/05/18 17:30 63 16 110/34 (59) 96 04/05/18 17:00 66 19 115/41 (65) 97 04/05/18 17:00 19 Mechanical Ventilator 35 04/05/18 16:41 63 9 35 04/05/18 16:30 61 16 103/38 (59) 96 04/05/18 16:00 Mechanical Ventilator 04/05/18 16:00 99.0 61 18 108/40 (62) 96 04/05/18 16:00 18 Mechanical Ventilator 35 04/05/18 15:43 60 04/05/18 15:30 61 19 103/36 (58) 97 04/05/18 15:00 27 Mechanical Ventilator 35 04/05/18 15:00 66 22 102/40 (60) 97 04/05/18 14:30 77 28 35 04/05/18 14:30 71 22 128/42 (70) 95 04/05/18 14:24 70 127/50 04/05/18 14:00 74 22 129/43 (71) 97 04/05/18 14:00 23 Mechanical Ventilator 35 04/05/18 13:30 76 18 100 Mechanical Ventilator 35 04/05/18 13:30 70 13 137/42 (73) 98 04/05/18 13:24 35 04/05/18 13:20 79 13 100 Mechanical Ventilator 35 04/05/18 13:00 72 18 126/41 (69) 100 04/05/18 13:00 19 Mechanical Ventilator 35 04/05/18 12:45 68 12 123/48 (73) 97 04/05/18 12:33 79 13 35 04/05/18 12:30 75 20 123/46 (71) 99 04/05/18 12:15 98.9 75 20 125/49 (74) 99 04/05/18 12:00 71 19 128/42 (70) 98 04/05/18 12:00 Mechanical Ventilator 04/05/18 12:00 23 Mechanical Ventilator 35 04/05/18 12:00 35 04/05/18 11:48 68 04/05/18 11:45 70 16 123/42 (69) 94 04/05/18 11:30 70 17 131/60 (83) 94 04/05/18 11:15 72 19 131/60 (83) 98 04/05/18 11:06 69 27 35 Intake and Output 04/05/18 04/06/18 19:00 07:00 Intake Total 1088.5 ml 1036.0 ml Output Total 1995 ml 1210 ml Balance -906.5 ml -174.0 ml Free Water 50 ml IV Total 758.5 ml 576.0 ml Tube Feeding 180 ml 370 ml Other 100 ml 90 ml Output Urine Total 1995 ml 1210 ml Laboratory Tests 04/06/18 09:00: White Blood Count 7.7, Red Blood Count 3.70L, Hemoglobin 10.6L, Hematocrit 32.2L , Mean Corpuscular Volume 87, Mean Corpuscular Hemoglobin 28.7, Mean Corpuscular Hemoglobin Concent 33.0, Red Cell Distribution Width 16.2H, Platelet Count 201, Mean Platelet Volume 6.7, Neutrophils (%) (Auto) 78.0H, Lymphocytes (%) (Auto) 9.6L, Monocytes (%) (Auto) 9.3, Eosinophils (%) (Auto) 2.0, Basophils (%) (Auto) 1.1, Sodium Level 140, Potassium Level 2.8L, Chloride Level 101, Carbon Dioxide Level 34H, Anion Gap 5, Blood Urea Nitrogen 14, Creatinine 1.0, Estimat Glomerular Filtration Rate , Glucose Level 103, Calcium Level 8.2L, Total Bilirubin 0.6, Aspartate Amino Transf (AST/SGOT) 16, Alanine Aminotransferase (ALT/SGPT) 14, Alkaline Phosphatase 51, Troponin I 0.033, Total Protein 5.5L, Albumin 2.4L, Globulin 3.1, Albumin/Globulin Ratio 0.8L Height (Feet): 5 Height (Inches): 7.00 Weight (Pounds): 178 General Appearance: alert, lethargic, confused, agitated Luiz Morrison MD Apr 06, 2018 11:02
[2018-04-06] MEDS: cefTRIAXone 2gm/D5W 110ml IVPB SCH ×2 (11:17)
--- NOTE | 2018-04-06 11:22 | Consultation ---
Consult Note Consult Note # [id number] Juan Moeller MD Apr 06, 2018 11:22
--- NOTE | 2018-04-06 11:27 | Diagnostic Imaging Report ---
Indication: NG tube Comparison: 04/04/2018 Single view of the abdomen obtained Findings: NG tube was advanced and is in good position. Only the upper abdomen is imaged. IMPRESSION: NG tube in good position
[2018-04-06] MEDS ORDERED: Haloperidol 5mg/ml Inj IM PRN (12:46)
[2018-04-06] MEDS: LORazepam Inj 2mg/ml 1ml IV PRN (16:47)
--- NOTE | 2018-04-06 18:08 | Internal Med Progress Note ---
Subjective Date of Service: Apr 06, 2018 Physician Name Dutta,Juan Attending Physician Yonathan Mendoza MD Current Medications Medications (Trade) Dose Ordered Sig/Ibrahima Route PRN Reason Start Time Stop Time Status Last Admin Dose Admin Acetaminophen (Tylenol) 650 mg Q4H PRN ORAL Fever (temp >100.3) 04/04/18 08:45 05/04/18 08:44 Acetazolamide (Diamox) 125 mg TWICE A DAY NG 04/05/18 18:00 04/07/18 18:00 04/06/18 08:43 Albuterol/ Ipratropium (Albuterol/ Ipratropium) 3 ml Q4H PRN HHN Shortness of Breath 04/04/18 08:45 04/09/18 08:44 Amiodarone HCl (Cordarone) 200 mg DAILY NG 04/05/18 09:00 05/05/18 08:59 04/06/18 08:43 Apixaban (Eliquis) 5 mg Q12HR ORAL 04/04/18 21:00 05/04/18 20:59 04/06/18 08:43 Ceftriaxone Sodium 2 gm/ Dextrose 110 ml @ 220 mls/hr Q24H IVPB 04/06/18 11:00 04/13/18 10:59 04/06/18 11:17 Dextrose (Dextrose 50%) 25 ml Q30M PRN IV Hypoglycemia 04/04/18 08:45 05/04/18 08:44 Dextrose (Dextrose 50%) 50 ml Q30M PRN IV Hypoglycemia 04/04/18 10:30 05/04/18 10:29 Diltiazem HCl (Cardizem) 90 mg EVERY 8 HOURS NG 04/04/18 22:00 05/04/18 21:59 04/06/18 13:48 Doxycycline Monohydrate (Vibramycin) 100 mg EVERY 12 HOURS ORAL 04/06/18 13:00 04/13/18 12:59 04/06/18 13:48 Fentanyl Citrate 1000 mcg/Sodium Chloride 100 ml @ 0 mls/hr Q24H IV 04/04/18 21:00 04/11/18 20:59 04/05/18 21:02 Furosemide (Lasix) 40 mg EVERY 8 HOURS IV 04/04/18 22:00 05/04/18 21:59 04/06/18 13:49 Haloperidol Lactate (Haldol) 5 mg Q6H PRN IM Agitation 04/06/18 12:46 05/06/18 12:45 Ipratropium [place] (Atrovent) 500 mcg Q6HRT HHN 04/04/18 19:00 04/09/18 18:59 04/06/18 12:56 Lorazepam (Ativan 2mg/ml 1ml) 2 mg Q4H PRN IV For Anxiety 04/04/18 08:45 04/11/18 08:44 04/06/18 16:47 Morphine Sulfate (Morphine Sulfate) 4 mg Q4H PRN IVP For Pain 04/04/18 08:45 04/11/18 08:44 Ondansetron HCl (Zofran) 4 mg Q6H PRN IVP Nausea & Vomiting 04/04/18 08:45 05/04/18 08:44 04/05/18 01:34 Pantoprazole (Protonix) 40 mg DAILY IV 04/04/18 10:15 05/04/18 10:14 04/06/18 08:42 Polyethylene Glycol (Miralax) 17 gm DAILYPRN PRN ORAL Constipation 04/04/18 08:45 05/04/18 08:44 Temazepam (Restoril) 15 mg HSPRN PRN ORAL Insomnia 04/04/18 08:45 04/11/18 08:44 Vancomycin HCl (Vanco rx to dose) 1 ea DAILY PRN MISC Per rx protocol 04/04/18 17:45 05/04/18 17:44 Vancomycin HCl 500 mg/Dextrose 110 ml @ 110 mls/hr Q12HR IVPB 04/05/18 10:30 04/10/18 10:29 04/06/18 08:44 Allergies: Coded Allergies: PIPERACILLIN (Unverified Allergy, Unknown, 03/10/18) TAZOBACTAM (Unverified Allergy, Unknown, 03/10/18) ROS Limited/Unobtainable: Yes Subjective 77 YO F admitted with respiratory failure and atrial flutter wit rapid ventricular rate. Intubated and sedated. Cover for ICU - Dr Mendoza. Objective Last Vital Signs Date Time Temp Pulse Resp B/P (MAP) Pulse Ox O2 Delivery O2 Flow Rate FiO2 04/06/18 17:30 60 12 98/39 (58) 96 04/06/18 17:00 99.0 04/06/18 17:00 35 04/06/18 16:00 Mechanical Ventilator 04/04/18 09:00 15.0 Laboratory Tests Test 04/06/18 09:00 White Blood Count 7.7 K/UL (4.8-10.8) Red Blood Count 3.70 M/UL (4.20-5.40) L Hemoglobin 10.6 G/DL (12.0-16.0) L Hematocrit 32.2 % (37.0-47.0) L Mean Corpuscular Volume 87 FL (80-99) Mean Corpuscular Hemoglobin 28.7 PG (27.0-31.0) Mean Corpuscular Hemoglobin Concent 33.0 G/DL (32.0-36.0) Red Cell Distribution Width 16.2 % (11.6-14.8) H Platelet Count 201 K/UL (150-450) Mean Platelet Volume 6.7 FL (6.5-10.1) Neutrophils (%) (Auto) 78.0 % (45.0-75.0) H Lymphocytes (%) (Auto) 9.6 % (20.0-45.0) L Monocytes (%) (Auto) 9.3 % (1.0-10.0) Eosinophils (%) (Auto) 2.0 % (0.0-3.0) Basophils (%) (Auto) 1.1 % (0.0-2.0) Sodium Level 140 MMOL/L (136-145) Potassium Level 2.8 MMOL/L (3.5-5.1) L Chloride Level 101 MMOL/L (98-107) Carbon Dioxide Level 34 MMOL/L (21-32) H Anion Gap 5 mmol/L (5-15) Blood Urea Nitrogen 14 mg/dL (7-18) Creatinine 1.0 MG/DL (0.55-1.30) Estimat Glomerular Filtration Rate mL/min (>60) Glucose Level 103 MG/DL (74-106) Calcium Level 8.2 MG/DL (8.5-10.1) L Total Bilirubin 0.6 MG/DL (0.2-1.0) Aspartate Amino Transf (AST/SGOT) 16 U/L (15-37) Alanine Aminotransferase (ALT/SGPT) 14 U/L (12-78) Alkaline Phosphatase 51 U/L (46-116) Troponin I 0.033 ng/mL (0.000-0.056) Total Protein 5.5 G/DL (6.4-8.2) L Albumin 2.4 G/DL (3.4-5.0) L Globulin 3.1 g/dL Albumin/Globulin Ratio 0.8 (1.0-2.7) L Legionella pneumophila Group 1 Ab Pending Legionella pneumophilia IgM Group 1 Pending Microbiology Date/Time Source Procedure Growth Status 04/04/18 04:45 Blood Blood Culture - Preliminary NO GROWTH AFTER 48 HOURS Resulted 04/04/18 04:30 Blood Blood Culture - Preliminary NO GROWTH AFTER 48 HOURS Resulted 04/05/18 09:40 Sputum Induced Gram Stain - Final Resulted 04/05/18 09:40 Sputum Induced Sputum Culture - Preliminary NO GROWTH Resulted 04/04/18 14:28 Nasal Nares Left MRSA Culture - Final Staphylococcus Aureus - Mrsa Complete 04/04/18 04:45 Nasal Nares Influenza Types A,B Antigen (ENA) - Final Complete 04/04/18 05:50 Urine,Clean Catch Urine Culture - Final Proteus Mirabilis Complete 04/04/18 09:00 Rectum - Final NO CARBAPENEM-RESISTANT ENTEROBACTERI... Complete 04/04/18 06:00 Rectum VRE Culture - Final Enterococcus Faecalis - Vre Complete Intake and Output 04/05/18 04/06/18 18:59 06:59 Intake Total 1144.5 ml 1042.5 ml Output Total 2125 ml 1040 ml Balance -980.5 ml 2.5 ml Free Water 50 ml IV Total 814.5 ml 622.5 ml Tube Feeding 180 ml 330 ml Other 100 ml 90 ml Output Urine Total 2125 ml 1040 ml Objective General Appearance: WD/WN, no apparent distress EENT: PERRL/EOMI, normal ENT inspection Neck: non-tender, normal alignment, supple Cardiovascular: normal peripheral pulses, regular rhythm, no gallop/murmur, no JVD, tachycardia Respiratory/Chest: Mech vent; chest wall non-tender, respiratory distress, crackles/rales, rhonchi - bilaterally, expiratory wheezing Abdomen: normal bowel sounds, non tender, soft, no organomegaly, no mass Extremities: normal range of motion, non-tender Skin: normal pigmentation, warm/dry Assessment/Plan Problem List: (1) Pneumonia Assessment & Plan: Continue vanco and ceftriaxone (2) Atrial fibrillation with RVR Assessment & Plan: Cntinue amiodarone-See cardiology note. (3) CHF (congestive heart failure) (4) COPD (chronic obstructive pulmonary disease) Assessment & Plan: see pulmonary note. (5) Pacemaker (6) CAD (coronary artery disease) (7) Seizure disorder (8) Bipolar depression (9) Respiratory failure, acute Assessment & Plan: Continue vent per pulmonary (10) UTI (lower urinary tract infection) Assessment & Plan: Proteus. Continue ceftriaxone per ID Status: not improved Juan Dutta MD Apr 06, 2018 18:08
--- NOTE | 2018-04-06 20:00 | Consultation ---
DATE OF CONSULTATION: 04/06/2018 INFECTIOUS DISEASE CONSULTATION CONSULTING PHYSICIAN: Juan Moeller M.D. REFERRING PHYSICIAN: Mendel Sierra M.D. REASON FOR CONSULTATION: Evaluation of the patient for sepsis, pneumonia, antibiotic management. HISTORY OF PRESENT ILLNESS: The patient is a 77-year-old female with multiple medical problems, who was brought to this medical center because of the tachycardia and shortness of breath. The patient was intubated and was placed in ICU. Chest x-ray showed interstitial markings suggestive of possible pneumonia. The patient has been started on IV antibiotics. Infectious Diseases consultation has been requested for further evaluation of the patient and antibiotic management. PAST MEDICAL HISTORY: 1. Atrial flutter. 2. CHF. 3. COPD. 4. CAD. 5. Hypertension. 6. Seizure disorder. 7. Schizophrenia. 8. Depression. 9. History of intraventricular pacemaker implantation. ALLERGIES: Zosyn. SOCIAL HISTORY: The patient lives in a residential. FAMILY HISTORY: Unavailable. REVIEW OF SYSTEMS: Unobtainable. The patient is intubated. MEDICATIONS: Rocephin, vancomycin, and Flagyl. PHYSICAL EXAMINATION: VITAL SIGNS: Temperature 99.4, pulse 86, respiratory rate 18. HEENT: No pale conjunctivae. No icterus. NECK: No lymphadenopathy. CHEST: Coarse breathing sounds. HEART: S1 and S2. ABDOMEN: Soft, nontender. EXTREMITIES: No cyanosis at this time. NEUROLOGIC: Awake. LABORATORY DATA: White blood cell 7.2, hemoglobin 10.6, platelets 201,000. UA shows 20-30 red blood cells, too numerous to count white blood cells. BUN 14, creatinine 1. Sputum culture is pending. Urine shows Proteus mirabilis. Influenza screen negative. ASSESSMENT: The patient is a 77-year-old female with: 1. Afebrile. 2. Normal white blood cells. 3. UTI with Proteus mirabilis. 4. Probable pneumonia, ? atypical. 5. Flu screen negative. PLAN: 1. We will continue the patient on IV vancomycin for now (pending sputum culture). 2. We will continue the patient on Rocephin day #2, discontinue Flagyl, add Levaquin for atypical coverage. 3. Monitor CBC. 4. Monitor BMP. 5. Monitor cultures (blood, sputum). 6. Urine Legionella antigen. 7. Monitor chest x-ray. 8. Based on the patient's clinical course and laboratories, we will do further recommendation. Thank you for allowing me to participate in the care of this patient. I will follow the patient with you during this hospitalization. Juan Moeller M.D. DR: Won JOB#: [id number] CC:
--- NOTE | 2018-04-06 21:45 | Psych Consult Progress Note ---
Psych Consult Progress Note Consult 04/05/18 Vital Signs Last 24 Hour Vital Signs Date Time Temp Pulse Resp B/P (MAP) Pulse Ox O2 Delivery O2 Flow Rate FiO2 04/06/18 21:07 13 Mechanical Ventilator 35 04/06/18 21:07 69 120/45 04/06/18 21:03 60 14 35 04/06/18 21:00 60 16 100/40 (60) 98 04/06/18 20:00 63 04/06/18 20:00 98.6 61 22 98/36 (56) 98 04/06/18 20:00 35 04/06/18 20:00 Mechanical Ventilator 04/06/18 19:30 64 13 106/42 (63) 98 04/06/18 19:03 62 12 99 Mechanical Ventilator 35 04/06/18 19:00 12 Mechanical Ventilator 04/06/18 19:00 62 12 91/41 (58) 98 04/06/18 18:56 61 12 35 04/06/18 18:56 61 12 98 Mechanical Ventilator 35 04/06/18 18:30 60 12 92/38 (56) 98 04/06/18 18:00 13 Mechanical Ventilator 04/06/18 18:00 64 13 115/46 (69) 95 04/06/18 17:30 60 12 98/39 (58) 96 04/06/18 17:00 99.0 60 13 103/42 (62) 100 04/06/18 17:00 12 Mechanical Ventilator 04/06/18 17:00 60 13 35 04/06/18 16:30 60 12 100/39 (59) 99 04/06/18 16:00 60 04/06/18 16:00 Mechanical Ventilator 04/06/18 16:00 16 Mechanical Ventilator 04/06/18 16:00 60 12 98/44 (62) 97 04/06/18 16:00 35 04/06/18 15:30 60 12 93/39 (57) 97 04/06/18 15:19 12 Mechanical Ventilator 04/06/18 15:00 60 20 96/40 (58) 98 04/06/18 15:00 12 Mechanical Ventilator 04/06/18 14:54 60 13 35 04/06/18 14:30 60 20 94/41 (58) 98 04/06/18 14:00 60 20 93/41 (58) 98 04/06/18 14:00 14 Mechanical Ventilator 04/06/18 13:48 60 104/44 04/06/18 13:30 61 20 92/40 (57) 98 04/06/18 13:23 60 17 35 04/06/18 13:06 60 17 100 Mechanical Ventilator 35 04/06/18 13:00 21 Mechanical Ventilator 04/06/18 13:00 61 21 104/44 (64) 100 04/06/18 12:56 62 25 99 Mechanical Ventilator 35 04/06/18 12:54 60 25 35 04/06/18 12:30 60 22 106/41 (62) 98 04/06/18 12:00 Mechanical Ventilator 04/06/18 12:00 61 04/06/18 12:00 99.0 61 22 100/40 (60) 98 04/06/18 12:00 22 Mechanical Ventilator 04/06/18 12:00 35 04/06/18 11:30 61 22 107/43 (64) 98 04/06/18 11:18 61 23 35 04/06/18 11:00 23 Mechanical Ventilator 04/06/18 11:00 61 23 103/40 (61) 97 04/06/18 10:04 60 21 35 04/06/18 10:01 95 04/06/18 10:00 60 24 102/47 (65) 97 04/06/18 10:00 23 Mechanical Ventilator 04/06/18 09:15 60 14 35 04/06/18 09:00 60 14 102/32 (55) 97 04/06/18 09:00 14 Mechanical Ventilator 04/06/18 08:00 35 04/06/18 08:00 60 04/06/18 08:00 14 Mechanical Ventilator 04/06/18 08:00 99.4 60 12 85/32 (49) 97 04/06/18 08:00 Mechanical Ventilator 04/06/18 07:02 62 12 99 Mechanical Ventilator 35 04/06/18 07:00 60 12 88/35 (52) 96 04/06/18 07:00 12 Mechanical Ventilator 35 04/06/18 06:52 60 12 96 Mechanical Ventilator 35 04/06/18 06:51 60 12 35 04/06/18 06:50 12 Mechanical Ventilator 35 04/06/18 06:30 60 12 91/36 (54) 96 04/06/18 06:30 12 Mechanical Ventilator 35 04/06/18 06:05 12 Mechanical Ventilator 35 04/06/18 06:00 12 Mechanical Ventilator 35 04/06/18 06:00 60 12 100/44 (62) 96 04/06/18 05:32 60 101/41 04/06/18 05:30 61 12 106/41 (62) 97 04/06/18 05:27 60 14 35 04/06/18 05:00 61 12 110/40 (63) 97 04/06/18 05:00 12 Mechanical Ventilator 35 04/06/18 04:30 60 12 94/37 (56) 96 04/06/18 04:00 35 04/06/18 04:00 98.4 60 12 94/37 (56) 97 04/06/18 04:00 12 Mechanical Ventilator 35 04/06/18 04:00 Mechanical Ventilator 04/06/18 03:43 60 04/06/18 03:30 67 14 108/62 (77) 97 04/06/18 03:00 60 12 102/40 (60) 97 04/06/18 03:00 20 Mechanical Ventilator 35 04/06/18 02:33 60 12 35 04/06/18 02:30 60 12 102/44 (63) 96 04/06/18 02:00 60 12 97/39 (58) 100 04/06/18 02:00 12 Mechanical Ventilator 35 04/06/18 01:43 60 12 100 Mechanical Ventilator 35 04/06/18 01:30 60 12 99/36 (57) 100 04/06/18 01:27 61 12 97 Mechanical Ventilator 35 04/06/18 01:26 61 12 35 04/06/18 01:00 12 Mechanical Ventilator 35 04/06/18 01:00 60 12 105/41 (62) 98 04/06/18 00:30 60 12 99/41 (60) 96 04/06/18 00:00 98.4 60 21 98/35 (56) 96 04/06/18 00:00 Mechanical Ventilator 04/06/18 00:00 21 Mechanical Ventilator 35 04/06/18 00:00 35 04/05/18 23:30 60 18 98/35 (56) 96 04/05/18 23:25 62 12 35 04/05/18 23:04 60 04/05/18 23:00 12 Mechanical Ventilator 35 11/4/18 23:00 60 12 100/43 (62) 96 04/05/18 22:30 61 12 96/39 (58) 96 04/05/18 22:00 14 Mechanical Ventilator 35 04/05/18 22:00 67 14 115/43 (67) 96 Labs Laboratory Tests Test 04/06/18 09:00 White Blood Count 7.7 K/UL (4.8-10.8) Red Blood Count 3.70 M/UL (4.20-5.40) L Hemoglobin 10.6 G/DL (12.0-16.0) L Hematocrit 32.2 % (37.0-47.0) L Mean Corpuscular Volume 87 FL (80-99) Mean Corpuscular Hemoglobin 28.7 PG (27.0-31.0) Mean Corpuscular Hemoglobin Concent 33.0 G/DL (32.0-36.0) Red Cell Distribution Width 16.2 % (11.6-14.8) H Platelet Count 201 K/UL (150-450) Mean Platelet Volume 6.7 FL (6.5-10.1) Neutrophils (%) (Auto) 78.0 % (45.0-75.0) H Lymphocytes (%) (Auto) 9.6 % (20.0-45.0) L Monocytes (%) (Auto) 9.3 % (1.0-10.0) Eosinophils (%) (Auto) 2.0 % (0.0-3.0) Basophils (%) (Auto) 1.1 % (0.0-2.0) Sodium Level 140 MMOL/L (136-145) Potassium Level 2.8 MMOL/L (3.5-5.1) L Chloride Level 101 MMOL/L (98-107) Carbon Dioxide Level 34 MMOL/L (21-32) H Anion Gap 5 mmol/L (5-15) Blood Urea Nitrogen 14 mg/dL (7-18) Creatinine 1.0 MG/DL (0.55-1.30) Estimat Glomerular Filtration Rate mL/min (>60) Glucose Level 103 MG/DL (74-106) Calcium Level 8.2 MG/DL (8.5-10.1) L Total Bilirubin 0.6 MG/DL (0.2-1.0) Aspartate Amino Transf (AST/SGOT) 16 U/L (15-37) Alanine Aminotransferase (ALT/SGPT) 14 U/L (12-78) Alkaline Phosphatase 51 U/L (46-116) Troponin I 0.033 ng/mL (0.000-0.056) Total Protein 5.5 G/DL (6.4-8.2) L Albumin 2.4 G/DL (3.4-5.0) L Globulin 3.1 g/dL Albumin/Globulin Ratio 0.8 (1.0-2.7) L Legionella pneumophila Group 1 Ab Pending Legionella pneumophilia IgM Group 1 Pending Medications Current Medications Medications (Trade) Dose Ordered Sig/Ibrahima Route PRN Reason Start Time Stop Time Status Last Admin Dose Admin Acetaminophen (Tylenol) 650 mg Q4H PRN ORAL Fever (temp >100.3) 04/04/18 08:45 05/04/18 08:44 Acetazolamide (Diamox) 125 mg TWICE A DAY NG 04/05/18 18:00 04/07/18 18:00 04/06/18 18:08 Albuterol/ Ipratropium (Albuterol/ Ipratropium) 3 ml Q4H PRN HHN Shortness of Breath 04/04/18 08:45 04/09/18 08:44 Amiodarone HCl (Cordarone) 200 mg DAILY NG 04/05/18 09:00 05/05/18 08:59 04/06/18 08:43 Apixaban (Eliquis) 5 mg Q12HR ORAL 04/04/18 21:00 05/04/18 20:59 04/06/18 20:27 Ceftriaxone Sodium 2 gm/ Dextrose 110 ml @ 220 mls/hr Q24H IVPB 04/06/18 11:00 04/13/18 10:59 04/06/18 11:17 Dextrose (Dextrose 50%) 25 ml Q30M PRN IV Hypoglycemia 04/04/18 08:45 05/04/18 08:44 Dextrose (Dextrose 50%) 50 ml Q30M PRN IV Hypoglycemia 04/04/18 10:30 05/04/18 10:29 Diltiazem HCl (Cardizem) 90 mg EVERY 8 HOURS NG 04/04/18 22:00 05/04/18 21:59 04/06/18 21:07 Doxycycline Monohydrate (Vibramycin) 100 mg EVERY 12 HOURS ORAL 04/06/18 13:00 04/13/18 12:59 04/06/18 20:27 Fentanyl Citrate 1000 mcg/Sodium Chloride 100 ml @ 0 mls/hr Q24H IV 04/04/18 21:00 04/11/18 20:59 04/06/18 21:07 Furosemide (Lasix) 40 mg EVERY 8 HOURS IV 04/04/18 22:00 05/04/18 21:59 04/06/18 21:06 Haloperidol Lactate (Haldol) 5 mg Q6H PRN IM Agitation 04/06/18 12:46 05/06/18 12:45 Ipratropium [place] (Atrovent) 500 mcg Q6HRT HHN 04/04/18 19:00 04/09/18 18:59 04/06/18 18:55 Lorazepam (Ativan 2mg/ml 1ml) 2 mg Q4H PRN IV For Anxiety 04/04/18 08:45 04/11/18 08:44 04/06/18 16:47 Morphine Sulfate (Morphine Sulfate) 4 mg Q4H PRN IVP For Pain 04/04/18 08:45 04/11/18 08:44 Ondansetron HCl (Zofran) 4 mg Q6H PRN IVP Nausea & Vomiting 04/04/18 08:45 05/04/18 08:44 04/05/18 01:34 Pantoprazole (Protonix) 40 mg DAILY IV 04/04/18 10:15 05/04/18 10:14 04/06/18 08:42 Polyethylene Glycol (Miralax) 17 gm DAILYPRN PRN ORAL Constipation 04/04/18 08:45 05/04/18 08:44 Temazepam (Restoril) 15 mg HSPRN PRN ORAL Insomnia 04/04/18 08:45 04/11/18 08:44 04/06/18 20:26 Vancomycin HCl (Vanco rx to dose) 1 ea DAILY PRN MISC Per rx protocol 04/04/18 17:45 05/04/18 17:44 Vancomycin HCl 500 mg/Dextrose 110 ml @ 110 mls/hr Q12HR IVPB 04/05/18 10:30 04/10/18 10:29 04/06/18 20:27 Problems: (1) Schizophrenia (2) Encephalopathy acute Status: Acute Assessment & Plan: (1) Schizophrenia ICD Codes: F20.9 - Schizophrenia, unspecified SNOMED: 35393069 (2) Encephalopathy acute ICD Codes: G93.40 - Encephalopathy, unspecified SNOMED: 8536636 Status: unchanged Assessment/Plan Ativan IM prn haldol IM prn the pts Risperdal was discontinued Luiz Morrison MD Apr 06, 2018 21:45
[2018-04-07] VITALS (40 sets, daily range): BP systolic 91–127; BP diastolic 32–74
[2018-04-07] MEDS: Ipratropium 0.02% Inh Soln 2.5ml UD HHN SCH ×4 (00:44→18:59)
[2018-04-07 05:14] LABS: BASOPHILS % (AUTO) 0.3 % (0.0-2.0); EOSINOPHILS % (AUTO) 3.7 % (0.0-3.0); HEMATOCRIT 31.5 % (37.0-47.0); HEMOGLOBIN 10.5 G/DL (12.0-16.0); LYMPHOCYTES % (AUTO) 15.4 % (20.0-45.0); MEAN CORPUSCULAR VOLUME 86 FL (80-99); MONOCYTES % (AUTO) 4.7 % (1.0-10.0); NEUTROPHILS % (AUTO) 75.8 % (45.0-75.0); PLATELET COUNT 203 K/UL (150-450); RED BLOOD COUNT 3.66 M/UL (4.20-5.40); RED CELL DISTRIBUTION WIDTH 16.3 % (11.6-14.8)
[2018-04-07] MEDS: dilTIAZem HCl 90mg tab NG SCH ×3 (05:40→21:03)
[2018-04-07 06:01] LABS: ALANINE AMINOTRANSFERASE 9 U/L (12-78); ALBUMIN 2.4 G/DL (3.4-5.0); ALBUMIN/GLOBULIN RATIO 0.7 (1.0-2.7); ALKALINE PHOSPHATASE 53 U/L (46-116); ANION GAP 6 mmol/L (5-15); ASPARTATE AMINO TRANSFERASE 14 U/L (15-37); BILIRUBIN,TOTAL 0.4 MG/DL (0.2-1.0); BLOOD UREA NITROGEN 14 mg/dL (7-18); CARBON DIOXIDE 30 MMOL/L (21-32); CHLORIDE 102 MMOL/L (98-107); CREATININE 0.9 MG/DL (0.55-1.30); PHOSPHORUS 3.8 MG/DL (2.5-4.9); POTASSIUM 2.8 MMOL/L (3.5-5.1); SODIUM 138 MMOL/L (136-145)
--- NOTE | 2018-04-07 08:39 | Pulmonolgy Critical Care Note ---
Critical Care - Asmt/Plan Problems: (1) Respiratory failure, acute (2) Acute encephalopathy (3) Sepsis (4) Atrial fibrillation with RVR (5) Acute diastolic CHF (congestive heart failure) (6) COPD (chronic obstructive pulmonary disease) (7) Bipolar depression (8) Dementia Respiratory: monitor respiratory rate, adjust FIO2, CXR Cardiac: continue to monitor HR/BP Renal: F/U I&O, check electrolytes Infectious Disease: check cultures, continue antibiotics Gastrointestinal: continue feedings/current rate Endocrine: monitor blood sugar Hematologic: monitor H/H Neurologic: PRN Morphine Prophylaxis: Protonix Critical Care - Objective Last 24 Hour Vital Signs Date Time Temp Pulse Resp B/P (MAP) Pulse Ox O2 Delivery O2 Flow Rate FiO2 04/07/18 07:15 71 23 35 04/07/18 07:15 95 04/07/18 07:09 71 16 98 Mechanical Ventilator 35 04/07/18 06:56 70 13 35 04/07/18 06:56 64 16 99 Mechanical Ventilator 35 04/07/18 06:30 67 15 104/40 (61) 98 04/07/18 06:00 68 13 111/45 (67) 98 04/07/18 05:40 66 119/38 04/07/18 05:30 61 14 119/38 (65) 98 04/07/18 05:00 65 17 107/52 (70) 97 04/07/18 04:58 67 14 35 04/07/18 04:30 60 15 106/42 (63) 97 04/07/18 04:00 35 04/07/18 04:00 60 14 103/40 (61) 98 04/07/18 04:00 Mechanical Ventilator 04/07/18 04:00 61 04/07/18 03:30 99.3 61 16 93/35 (54) 97 04/07/18 03:00 60 12 106/43 (64) 97 04/07/18 02:52 60 21 35 04/07/18 02:30 62 12 98/36 (56) 97 04/07/18 02:00 60 14 91/32 (51) 98 04/07/18 01:30 61 11 98/35 (56) 95 04/07/18 01:00 60 12 127/42 (70) 99 04/07/18 00:51 60 14 100 Mechanical Ventilator 35 04/07/18 00:44 60 15 35 04/07/18 00:44 60 15 98 Mechanical Ventilator 35 04/07/18 00:30 60 12 93/40 (57) 99 04/07/18 00:00 35 04/07/18 00:00 Mechanical Ventilator 04/07/18 00:00 60 04/07/18 00:00 98.9 60 16 94/37 (56) 97 04/06/18 23:30 60 11 92/36 (54) 99 04/06/18 23:00 60 13 81/35 (50) 96 04/06/18 22:34 61 16 35 04/06/18 22:00 60 19 92/40 (57) 96 04/06/18 21:07 13 Mechanical Ventilator 35 04/06/18 21:07 69 120/45 04/06/18 21:03 60 14 35 04/06/18 21:00 60 16 100/40 (60) 98 04/06/18 20:00 63 04/06/18 20:00 98.6 61 22 98/36 (56) 98 04/06/18 20:00 35 04/06/18 20:00 Mechanical Ventilator 04/06/18 19:30 64 13 106/42 (63) 98 04/06/18 19:03 62 12 99 Mechanical Ventilator 35 04/06/18 19:00 12 Mechanical Ventilator 04/06/18 19:00 62 12 91/41 (58) 98 04/06/18 18:56 61 12 35 04/06/18 18:56 61 12 98 Mechanical Ventilator 35 04/06/18 18:30 60 12 92/38 (56) 98 04/06/18 18:00 13 Mechanical Ventilator 04/06/18 18:00 64 13 115/46 (69) 95 04/06/18 17:30 60 12 98/39 (58) 96 04/06/18 17:00 99.0 60 13 103/42 (62) 100 04/06/18 17:00 12 Mechanical Ventilator 04/06/18 17:00 60 13 35 04/06/18 16:30 60 12 100/39 (59) 99 04/06/18 16:00 60 04/06/18 16:00 Mechanical Ventilator 04/06/18 16:00 16 Mechanical Ventilator 04/06/18 16:00 60 12 98/44 (62) 97 04/06/18 16:00 35 04/06/18 15:30 60 12 93/39 (57) 97 04/06/18 15:19 12 Mechanical Ventilator 04/06/18 15:00 60 20 96/40 (58) 98 04/06/18 15:00 12 Mechanical Ventilator 04/06/18 14:54 60 13 35 04/06/18 14:30 60 20 94/41 (58) 98 04/06/18 14:00 60 20 93/41 (58) 98 04/06/18 14:00 14 Mechanical Ventilator 04/06/18 13:48 60 104/44 04/06/18 13:30 61 20 92/40 (57) 98 04/06/18 13:23 60 17 35 04/06/18 13:06 60 17 100 Mechanical Ventilator 35 04/06/18 13:00 21 Mechanical Ventilator 04/06/18 13:00 61 21 104/44 (64) 100 04/06/18 12:56 62 25 99 Mechanical Ventilator 35 04/06/18 12:54 60 25 35 04/06/18 12:30 60 22 106/41 (62) 98 04/06/18 12:00 Mechanical Ventilator 04/06/18 12:00 61 04/06/18 12:00 99.0 61 22 100/40 (60) 98 04/06/18 12:00 22 Mechanical Ventilator 04/06/18 12:00 35 04/06/18 11:30 61 22 107/43 (64) 98 04/06/18 11:18 61 23 35 04/06/18 11:00 23 Mechanical Ventilator 04/06/18 11:00 61 23 103/40 (61) 97 04/06/18 10:04 60 21 35 04/06/18 10:01 95 04/06/18 10:00 60 24 102/47 (65) 97 04/06/18 10:00 23 Mechanical Ventilator 04/06/18 09:15 60 14 35 04/06/18 09:00 60 14 102/32 (55) 97 04/06/18 09:00 14 Mechanical Ventilator Status: awake Condition: critical HEENT: atraumatic Neck: full ROM Heart: HR/BP stable Abdomen: soft, non-tender Extremities: no C/C/E Decubiti: location Micro: Microbiology Date/Time Source Procedure Growth Status 04/05/18 09:40 Sputum Induced Gram Stain - Final Resulted 04/05/18 09:40 Sputum Induced Sputum Culture - Preliminary NO GROWTH AFTER 24 HOURS Resulted 04/04/18 14:28 Nasal Nares Left MRSA Culture - Final Staphylococcus Aureus - Mrsa Complete 04/04/18 09:00 Rectum - Final NO CARBAPENEM-RESISTANT ENTEROBACTERI... Complete Critical Care - Subjective ROS Limited/Unobtainable: Yes Condition: critical EKG Rhythm: Sinus Rhythm FI02: 35 Vent Support Breath Rate: 12 Vent Support Mode: CPAP Vent Tidal Volume: 400 Sputum Amount: Small PEEP: 0.0 PIP: 14 Tube Feeding Amount: 50 I&O: Intake and Output 04/06/18 04/07/18 19:00 07:00 Intake Total 970 ml 660 ml Output Total 640 ml 1200 ml Balance 330 ml -540 ml IV Total 420 ml 110 ml Tube Feeding 550 ml 550 ml Output Urine Total 640 ml 1200 ml CXR: ET in good position, pulmonary edema ET-Tube: 7.5 ET Position: 23 Labs: Laboratory Tests Test 04/06/18 09:00 04/06/18 23:30 04/07/18 04:00 White Blood Count 7.7 K/UL (4.8-10.8) 8.0 K/UL (4.8-10.8) Red Blood Count 3.70 M/UL (4.20-5.40) L 3.66 M/UL (4.20-5.40) L Hemoglobin 10.6 G/DL (12.0-16.0) L 10.5 G/DL (12.0-16.0) L Hematocrit 32.2 % (37.0-47.0) L 31.5 % (37.0-47.0) L Mean Corpuscular Volume 87 FL (80-99) 86 FL (80-99) Mean Corpuscular Hemoglobin 28.7 PG (27.0-31.0) 28.6 PG (27.0-31.0) Mean Corpuscular Hemoglobin Concent 33.0 G/DL (32.0-36.0) 33.2 G/DL (32.0-36.0) Red Cell Distribution Width 16.2 % (11.6-14.8) H 16.3 % (11.6-14.8) H Platelet Count 201 K/UL (150-450) 203 K/UL (150-450) Mean Platelet Volume 6.7 FL (6.5-10.1) 6.8 FL (6.5-10.1) Neutrophils (%) (Auto) 78.0 % (45.0-75.0) H 75.8 % (45.0-75.0) H Lymphocytes (%) (Auto) 9.6 % (20.0-45.0) L 15.4 % (20.0-45.0) L Monocytes (%) (Auto) 9.3 % (1.0-10.0) 4.7 % (1.0-10.0) Eosinophils (%) (Auto) 2.0 % (0.0-3.0) 3.7 % (0.0-3.0) H Basophils (%) (Auto) 1.1 % (0.0-2.0) 0.3 % (0.0-2.0) Sodium Level 140 MMOL/L (136-145) 138 MMOL/L (136-145) Potassium Level 2.8 MMOL/L (3.5-5.1) L 2.8 MMOL/L (3.5-5.1) L Chloride Level 101 MMOL/L (98-107) 102 MMOL/L (98-107) Carbon Dioxide Level 34 MMOL/L (21-32) H 30 MMOL/L (21-32) Anion Gap 5 mmol/L (5-15) 6 mmol/L (5-15) Blood Urea Nitrogen 14 mg/dL (7-18) 14 mg/dL (7-18) Creatinine 1.0 MG/DL (0.55-1.30) 0.9 MG/DL (0.55-1.30) Estimat Glomerular Filtration Rate mL/min (>60) mL/min (>60) Glucose Level 103 MG/DL (74-106) 102 MG/DL (74-106) Calcium Level 8.2 MG/DL (8.5-10.1) L 8.0 MG/DL (8.5-10.1) L Total Bilirubin 0.6 MG/DL (0.2-1.0) 0.4 MG/DL (0.2-1.0) Aspartate Amino Transf (AST/SGOT) 16 U/L (15-37) 14 U/L (15-37) L Alanine Aminotransferase (ALT/SGPT) 14 U/L (12-78) 9 U/L (12-78) L Alkaline Phosphatase 51 U/L (46-116) 53 U/L (46-116) Troponin I 0.033 ng/mL (0.000-0.056) Total Protein 5.5 G/DL (6.4-8.2) L 5.9 G/DL (6.4-8.2) L Albumin 2.4 G/DL (3.4-5.0) L 2.4 G/DL (3.4-5.0) L Globulin 3.1 g/dL 3.5 g/dL Albumin/Globulin Ratio 0.8 (1.0-2.7) L 0.7 (1.0-2.7) L Legionella pneumophila Group 1 Ab Pending Legionella pneumophilia IgM Group 1 Pending Urine Legionella Antigen Pending Phosphorus Level 3.8 MG/DL (2.5-4.9) Magnesium Level 1.7 MG/DL (1.8-2.4) L Mendel Sierra MD Apr 07, 2018 08:39
[2018-04-07] MEDS: Vancomycin 500mg/D5W 110ml IVPB SCH ×2 (09:03)
[2018-04-07] MEDS: Pantoprazole Inj IV SCH (09:03)
[2018-04-07] MEDS: Eliquis 2.5mg tablet ORAL SCH ×2 (09:05→21:02)
[2018-04-07] MEDS: Amiodarone 200mg tab NG SCH (09:06)
[2018-04-07] MEDS: LORazepam Inj 2mg/ml 1ml IV PRN ×2 (09:40→17:22)
[2018-04-07] MEDS: cefTRIAXone 2gm/D5W 110ml IVPB SCH ×2 (11:28)
--- NOTE | 2018-04-07 11:41 | Diagnostic Imaging Report ---
Indication: Dyspnea Comparison: 04/05/2018 A single view chest radiograph was obtained. Findings: Reticular densities are present. The heart is enlarged. Tubes and lines are satisfactory and stable. Bones are osteopenic. IMPRESSION: Interstitial pulmonary edema. No change
--- NOTE | 2018-04-07 14:09 | Infectious Diseases Prog Note ---
Assessment/Plan Assessment/Plan ASSESSMENT: The patient is a 77-year-old female with: Afebrile. Normal white blood cells. UTI with Proteus mirabilis. Probable pneumonia, ? atypical. Flu screen negative Atrial flutter CHF COPD CAD Hypertension Seizure disorder Schizophrenia Depression History of intraventricular pacemaker implantation PLAN: DC IV vancomycin d # 3 continue on Rocephin day #3 and Doxy d# 2 / 5 Monitor CBC Monitor BMP Monitor cultures (blood, sputum) Urine Legionella antigen / Ab Monitor chest x-ray Subjective Allergies: Coded Allergies: PIPERACILLIN (Unverified Allergy, Unknown, 03/10/18) TAZOBACTAM (Unverified Allergy, Unknown, 03/10/18) Subjective in ICU Objective Vital Signs Last 24 Hour Vital Signs Date Time Temp Pulse Resp B/P (MAP) Pulse Ox O2 Delivery O2 Flow Rate FiO2 04/07/18 13:15 68 14 98 Mechanical Ventilator 35 04/07/18 13:04 61 16 35 04/07/18 13:04 60 16 99 Mechanical Ventilator 35 04/07/18 12:00 60 04/07/18 12:00 99.6 65 19 120/52 (74) 100 04/07/18 12:00 Mechanical Ventilator 04/07/18 11:30 65 18 106/74 (85) 99 04/07/18 11:00 64 17 97/43 (61) 99 04/07/18 10:48 73 19 35 04/07/18 10:30 62 17 107/54 (71) 98 04/07/18 10:09 99.8 04/07/18 10:00 67 15 104/40 (61) 98 04/07/18 09:30 70 19 113/42 (65) 99 04/07/18 09:04 35 04/07/18 09:00 74 18 35 04/07/18 09:00 100.3 67 18 116/41 (66) 98 04/07/18 08:30 69 27 96/37 (56) 98 04/07/18 08:00 72 04/07/18 08:00 67 26 97/43 (61) 98 04/07/18 08:00 Mechanical Ventilator 04/07/18 07:30 15 98 04/07/18 07:15 71 23 35 04/07/18 07:15 95 04/07/18 07:09 71 16 98 Mechanical Ventilator 35 04/07/18 07:00 15 98 04/07/18 06:56 70 13 35 04/07/18 06:56 64 16 99 Mechanical Ventilator 35 04/07/18 06:30 67 15 104/40 (61) 98 04/07/18 06:00 68 13 111/45 (67) 98 04/07/18 05:40 66 119/38 04/07/18 05:30 61 14 119/38 (65) 98 04/07/18 05:00 65 17 107/52 (70) 97 04/07/18 04:58 67 14 35 04/07/18 04:30 60 15 106/42 (63) 97 04/07/18 04:00 35 04/07/18 04:00 60 14 103/40 (61) 98 04/07/18 04:00 Mechanical Ventilator 04/07/18 04:00 61 04/07/18 03:30 99.3 61 16 93/35 (54) 97 04/07/18 03:00 60 12 106/43 (64) 97 04/07/18 02:52 60 21 35 04/07/18 02:30 62 12 98/36 (56) 97 04/07/18 02:00 60 14 91/32 (51) 98 04/07/18 01:30 61 11 98/35 (56) 95 04/07/18 01:00 60 12 127/42 (70) 99 04/07/18 00:51 60 14 100 Mechanical Ventilator 35 04/07/18 00:44 60 15 35 04/07/18 00:44 60 15 98 Mechanical Ventilator 35 04/07/18 00:30 60 12 93/40 (57) 99 04/07/18 00:00 35 04/07/18 00:00 Mechanical Ventilator 04/07/18 00:00 60 04/07/18 00:00 98.9 60 16 94/37 (56) 97 04/06/18 23:30 60 11 92/36 (54) 99 04/06/18 23:00 60 13 81/35 (50) 96 04/06/18 22:34 61 16 35 04/06/18 22:00 60 19 92/40 (57) 96 04/06/18 21:07 13 Mechanical Ventilator 35 04/06/18 21:07 69 120/45 04/06/18 21:03 60 14 35 11/5/18 21:00 60 16 100/40 (60) 98 04/06/18 20:00 63 04/06/18 20:00 98.6 61 22 98/36 (56) 98 04/06/18 20:00 35 04/06/18 20:00 Mechanical Ventilator 04/06/18 19:30 64 13 106/42 (63) 98 04/06/18 19:03 62 12 99 Mechanical Ventilator 35 04/06/18 19:00 12 Mechanical Ventilator 04/06/18 19:00 62 12 91/41 (58) 98 04/06/18 18:56 61 12 35 04/06/18 18:56 61 12 98 Mechanical Ventilator 35 04/06/18 18:30 60 12 92/38 (56) 98 04/06/18 18:00 13 Mechanical Ventilator 04/06/18 18:00 64 13 115/46 (69) 95 04/06/18 17:30 60 12 98/39 (58) 96 04/06/18 17:00 99.0 60 13 103/42 (62) 100 04/06/18 17:00 12 Mechanical Ventilator 04/06/18 17:00 60 13 35 04/06/18 16:30 60 12 100/39 (59) 99 04/06/18 16:00 60 04/06/18 16:00 Mechanical Ventilator 04/06/18 16:00 16 Mechanical Ventilator 04/06/18 16:00 60 12 98/44 (62) 97 04/06/18 16:00 35 04/06/18 15:30 60 12 93/39 (57) 97 04/06/18 15:19 12 Mechanical Ventilator 04/06/18 15:00 60 20 96/40 (58) 98 04/06/18 15:00 12 Mechanical Ventilator 04/06/18 14:54 60 13 35 04/06/18 14:30 60 20 94/41 (58) 98 Height (Feet): 5 Height (Inches): 7.00 Weight (Pounds): 174 HEENT: anicteric Respiratory/Chest: normal breath sounds Cardiovascular: regular rhythm Abdomen: soft, non tender Microbiology Date/Time Source Procedure Growth Status 04/05/18 09:40 Sputum Induced Gram Stain - Final Resulted 04/05/18 09:40 Sputum Induced Sputum Culture - Preliminary NO GROWTH AFTER 24 HOURS Resulted 04/04/18 14:28 Nasal Nares Left MRSA Culture - Final Staphylococcus Aureus - Mrsa Complete Laboratory Tests Test 04/06/18 23:30 04/07/18 04:00 04/07/18 09:00 Urine Legionella Antigen Pending White Blood Count 8.0 K/UL (4.8-10.8) Red Blood Count 3.66 M/UL (4.20-5.40) L Hemoglobin 10.5 G/DL (12.0-16.0) L Hematocrit 31.5 % (37.0-47.0) L Mean Corpuscular Volume 86 FL (80-99) Mean Corpuscular Hemoglobin 28.6 PG (27.0-31.0) Mean Corpuscular Hemoglobin Concent 33.2 G/DL (32.0-36.0) Red Cell Distribution Width 16.3 % (11.6-14.8) H Platelet Count 203 K/UL (150-450) Mean Platelet Volume 6.8 FL (6.5-10.1) Neutrophils (%) (Auto) 75.8 % (45.0-75.0) H Lymphocytes (%) (Auto) 15.4 % (20.0-45.0) L Monocytes (%) (Auto) 4.7 % (1.0-10.0) Eosinophils (%) (Auto) 3.7 % (0.0-3.0) H Basophils (%) (Auto) 0.3 % (0.0-2.0) Sodium Level 138 MMOL/L (136-145) Potassium Level 2.8 MMOL/L (3.5-5.1) L Chloride Level 102 MMOL/L (98-107) Carbon Dioxide Level 30 MMOL/L (21-32) Anion Gap 6 mmol/L (5-15) Blood Urea Nitrogen 14 mg/dL (7-18) Creatinine 0.9 MG/DL (0.55-1.30) Estimat Glomerular Filtration Rate mL/min (>60) Glucose Level 102 MG/DL (74-106) Calcium Level 8.0 MG/DL (8.5-10.1) L Phosphorus Level 3.8 MG/DL (2.5-4.9) Magnesium Level 1.7 MG/DL (1.8-2.4) L Total Bilirubin 0.4 MG/DL (0.2-1.0) Aspartate Amino Transf (AST/SGOT) 14 U/L (15-37) L Alanine Aminotransferase (ALT/SGPT) 9 U/L (12-78) L Alkaline Phosphatase 53 U/L (46-116) Total Protein 5.9 G/DL (6.4-8.2) L Albumin 2.4 G/DL (3.4-5.0) L Globulin 3.5 g/dL Albumin/Globulin Ratio 0.7 (1.0-2.7) L Arterial Blood pH 7.413 (7.350-7.450) Arterial Blood Partial Pressure CO2 48.3 mmHg (35.0-45.0) H Arterial Blood Partial Pressure O2 93.8 mmHg (75.0-100.0) Arterial Blood HCO3 30.1 mmol/L (22.0-26.0) H Arterial Blood Oxygen Saturation 96.8 % (95-100) Arterial Blood Base Excess 4.8 (-2-2) H Ian Test Positive Current Medications Medications (Trade) Dose Ordered Sig/Ibrahima Route PRN Reason Start Time Stop Time Status Last Admin Dose Admin Acetaminophen (Tylenol) 650 mg Q4H PRN ORAL Fever (temp >100.3) 04/04/18 08:45 05/04/18 08:44 04/07/18 09:39 Acetazolamide (Diamox) 125 mg TWICE A DAY NG 04/05/18 18:00 04/07/18 18:00 04/07/18 09:05 Albuterol/ Ipratropium (Albuterol/ Ipratropium) 3 ml Q4H PRN HHN Shortness of Breath 04/04/18 08:45 04/09/18 08:44 Amiodarone HCl (Cordarone) 200 mg DAILY NG 04/05/18 09:00 05/05/18 08:59 04/07/18 09:06 Apixaban (Eliquis) 5 mg Q12HR ORAL 04/04/18 21:00 05/04/18 20:59 04/07/18 09:05 Ceftriaxone Sodium 2 gm/ Dextrose 110 ml @ 220 mls/hr Q24H IVPB 04/06/18 11:00 04/13/18 10:59 04/07/18 11:28 Dextrose (Dextrose 50%) 25 ml Q30M PRN IV Hypoglycemia 04/04/18 08:45 05/04/18 08:44 Dextrose (Dextrose 50%) 50 ml Q30M PRN IV Hypoglycemia 04/04/18 10:30 05/04/18 10:29 Diltiazem HCl (Cardizem) 90 mg EVERY 8 HOURS NG 04/04/18 22:00 05/04/18 21:59 04/07/18 05:40 Doxycycline Monohydrate (Vibramycin) 100 mg EVERY 12 HOURS ORAL 04/06/18 13:00 04/13/18 12:59 04/07/18 09:04 Fentanyl Citrate 1000 mcg/Sodium Chloride 100 ml @ 0 mls/hr Q24H IV 04/04/18 21:00 04/11/18 20:59 04/06/18 21:07 Furosemide (Lasix) 40 mg EVERY 8 HOURS IV 04/04/18 22:00 05/04/18 21:59 04/07/18 05:39 Haloperidol Lactate (Haldol) 5 mg Q6H PRN IM Agitation 04/06/18 12:46 05/06/18 12:45 Ipratropium Newman (Atrovent) 500 mcg Q6HRT HHN 04/04/18 19:00 04/09/18 18:59 04/07/18 13:04 Lorazepam (Ativan 2mg/ml 1ml) 2 mg Q4H PRN IV For Anxiety 04/04/18 08:45 04/11/18 08:44 04/07/18 09:40 Morphine Sulfate (Morphine Sulfate) 4 mg Q4H PRN IVP For Pain 04/04/18 08:45 04/11/18 08:44 Ondansetron HCl (Zofran) 4 mg Q6H PRN IVP Nausea & Vomiting 04/04/18 08:45 05/04/18 08:44 04/05/18 01:34 Pantoprazole (Protonix) 40 mg DAILY IV 04/04/18 10:15 05/04/18 10:14 04/07/18 09:03 Polyethylene Glycol (Miralax) 17 gm DAILYPRN PRN ORAL Constipation 04/04/18 08:45 05/04/18 08:44 Potassium Chloride 100 ml @ 100 mls/hr NOW ONCE IVPB 04/07/18 14:00 04/07/18 14:59 Temazepam (Restoril) 15 mg HSPRN PRN ORAL Insomnia 04/04/18 08:45 04/11/18 08:44 04/06/18 20:26 Vancomycin HCl (Vanco rx to dose) 1 ea DAILY PRN MISC Per rx protocol 04/04/18 17:45 05/04/18 17:44 Vancomycin HCl 500 mg/Dextrose 110 ml @ 110 mls/hr Q12HR IVPB 04/05/18 10:30 04/10/18 10:29 04/07/18 09:03 Juan Moeller MD Apr 07, 2018 14:09
--- NOTE | 2018-04-07 15:30 | Cardiac Electrophysiology PN ---
Assessment/Plan Assessment/Plan 1. Atrial flutter with rapid ventricular response. rate controlled. Continue Cardizem 90 mg every 8 hours, apixaban 5 mg bid and amiodarone 200 mg daily. 2. Status post [employer] Micra leadless pacemaker implantation in January of 2016 at [facility]. 3. Respiratory failure to diastolic dysfunction on Vent. EF of 55%. Continue Lasix 40 mg IV every 8 hours. 4. Hypertension, on Lasix and Cardizem. 5. Psychosis and schizophrenia, on Risperdal. DYLAN RN Subjective Subjective In ICU on Vent being weaned off the vent. Remained in Atrial fib with controlled rate and occasionally V paced Objective Last 24 Hour Vital Signs Date Time Temp Pulse Resp B/P (MAP) Pulse Ox O2 Delivery O2 Flow Rate FiO2 04/07/18 14:04 62 132/66 04/07/18 13:15 68 14 98 Mechanical Ventilator 35 04/07/18 13:04 61 16 35 04/07/18 13:04 60 16 99 Mechanical Ventilator 35 04/07/18 12:00 60 04/07/18 12:00 99.6 65 19 120/52 (74) 100 04/07/18 12:00 Mechanical Ventilator 04/07/18 11:30 65 18 106/74 (85) 99 04/07/18 11:00 64 17 97/43 (61) 99 04/07/18 10:48 73 19 35 04/07/18 10:30 62 17 107/54 (71) 98 04/07/18 10:09 99.8 04/07/18 10:00 67 15 104/40 (61) 98 04/07/18 09:30 70 19 113/42 (65) 99 04/07/18 09:04 35 04/07/18 09:00 74 18 35 04/07/18 09:00 100.3 67 18 116/41 (66) 98 04/07/18 08:30 69 27 96/37 (56) 98 04/07/18 08:00 72 04/07/18 08:00 67 26 97/43 (61) 98 04/07/18 08:00 Mechanical Ventilator 04/07/18 07:30 15 98 04/07/18 07:15 71 23 35 04/07/18 07:15 95 04/07/18 07:09 71 16 98 Mechanical Ventilator 35 04/07/18 07:00 15 98 11/6/18 06:56 70 13 35 04/07/18 06:56 64 16 99 Mechanical Ventilator 35 04/07/18 06:30 67 15 104/40 (61) 98 04/07/18 06:00 68 13 111/45 (67) 98 04/07/18 05:40 66 119/38 04/07/18 05:30 61 14 119/38 (65) 98 04/07/18 05:00 65 17 107/52 (70) 97 04/07/18 04:58 67 14 35 04/07/18 04:30 60 15 106/42 (63) 97 04/07/18 04:00 35 04/07/18 04:00 60 14 103/40 (61) 98 04/07/18 04:00 Mechanical Ventilator 04/07/18 04:00 61 04/07/18 03:30 99.3 61 16 93/35 (54) 97 04/07/18 03:00 60 12 106/43 (64) 97 04/07/18 02:52 60 21 35 04/07/18 02:30 62 12 98/36 (56) 97 04/07/18 02:00 60 14 91/32 (51) 98 04/07/18 01:30 61 11 98/35 (56) 95 04/07/18 01:00 60 12 127/42 (70) 99 04/07/18 00:51 60 14 100 Mechanical Ventilator 35 04/07/18 00:44 60 15 35 04/07/18 00:44 60 15 98 Mechanical Ventilator 35 04/07/18 00:30 60 12 93/40 (57) 99 04/07/18 00:00 35 04/07/18 00:00 Mechanical Ventilator 04/07/18 00:00 60 04/07/18 00:00 98.9 60 16 94/37 (56) 97 04/06/18 23:30 60 11 92/36 (54) 99 04/06/18 23:00 60 13 81/35 (50) 96 04/06/18 22:34 61 16 35 04/06/18 22:00 60 19 92/40 (57) 96 04/06/18 21:07 13 Mechanical Ventilator 35 04/06/18 21:07 69 120/45 04/06/18 21:03 60 14 35 04/06/18 21:00 60 16 100/40 (60) 98 04/06/18 20:00 63 04/06/18 20:00 98.6 61 22 98/36 (56) 98 04/06/18 20:00 35 04/06/18 20:00 Mechanical Ventilator 04/06/18 19:30 64 13 106/42 (63) 98 04/06/18 19:03 62 12 99 Mechanical Ventilator 35 04/06/18 19:00 12 Mechanical Ventilator 04/06/18 19:00 62 12 91/41 (58) 98 04/06/18 18:56 61 12 35 04/06/18 18:56 61 12 98 Mechanical Ventilator 35 04/06/18 18:30 60 12 92/38 (56) 98 04/06/18 18:00 13 Mechanical Ventilator 04/06/18 18:00 64 13 115/46 (69) 95 04/06/18 17:30 60 12 98/39 (58) 96 04/06/18 17:00 99.0 60 13 103/42 (62) 100 04/06/18 17:00 12 Mechanical Ventilator 04/06/18 17:00 60 13 35 04/06/18 16:30 60 12 100/39 (59) 99 04/06/18 16:00 60 04/06/18 16:00 Mechanical Ventilator 04/06/18 16:00 16 Mechanical Ventilator 04/06/18 16:00 60 12 98/44 (62) 97 04/06/18 16:00 35 04/06/18 15:30 60 12 93/39 (57) 97 Intake and Output 04/06/18 04/07/18 18:59 06:59 Intake Total 963.5 ml 710 ml Output Total 780 ml 1240 ml Balance 183.5 ml -530 ml IV Total 423.5 ml 110 ml Tube Feeding 540 ml 600 ml Output Urine Total 780 ml 1240 ml Laboratory Tests Test 04/06/18 23:30 04/07/18 04:00 04/07/18 09:00 Urine Legionella Antigen Pending White Blood Count 8.0 K/UL (4.8-10.8) Red Blood Count 3.66 M/UL (4.20-5.40) L Hemoglobin 10.5 G/DL (12.0-16.0) L Hematocrit 31.5 % (37.0-47.0) L Mean Corpuscular Volume 86 FL (80-99) Mean Corpuscular Hemoglobin 28.6 PG (27.0-31.0) Mean Corpuscular Hemoglobin Concent 33.2 G/DL (32.0-36.0) Red Cell Distribution Width 16.3 % (11.6-14.8) H Platelet Count 203 K/UL (150-450) Mean Platelet Volume 6.8 FL (6.5-10.1) Neutrophils (%) (Auto) 75.8 % (45.0-75.0) H Lymphocytes (%) (Auto) 15.4 % (20.0-45.0) L Monocytes (%) (Auto) 4.7 % (1.0-10.0) Eosinophils (%) (Auto) 3.7 % (0.0-3.0) H Basophils (%) (Auto) 0.3 % (0.0-2.0) Sodium Level 138 MMOL/L (136-145) Potassium Level 2.8 MMOL/L (3.5-5.1) L Chloride Level 102 MMOL/L (98-107) Carbon Dioxide Level 30 MMOL/L (21-32) Anion Gap 6 mmol/L (5-15) Blood Urea Nitrogen 14 mg/dL (7-18) Creatinine 0.9 MG/DL (0.55-1.30) Estimat Glomerular Filtration Rate mL/min (>60) Glucose Level 102 MG/DL (74-106) Calcium Level 8.0 MG/DL (8.5-10.1) L Phosphorus Level 3.8 MG/DL (2.5-4.9) Magnesium Level 1.7 MG/DL (1.8-2.4) L Total Bilirubin 0.4 MG/DL (0.2-1.0) Aspartate Amino Transf (AST/SGOT) 14 U/L (15-37) L Alanine Aminotransferase (ALT/SGPT) 9 U/L (12-78) L Alkaline Phosphatase 53 U/L (46-116) Total Protein 5.9 G/DL (6.4-8.2) L Albumin 2.4 G/DL (3.4-5.0) L Globulin 3.5 g/dL Albumin/Globulin Ratio 0.7 (1.0-2.7) L Arterial Blood pH 7.413 (7.350-7.450) Arterial Blood Partial Pressure CO2 48.3 mmHg (35.0-45.0) H Arterial Blood Partial Pressure O2 93.8 mmHg (75.0-100.0) Arterial Blood HCO3 30.1 mmol/L (22.0-26.0) H Arterial Blood Oxygen Saturation 96.8 % (95-100) Arterial Blood Base Excess 4.8 (-2-2) H Ian Test Positive Microbiology Date/Time Source Procedure Growth Status 04/05/18 09:40 Sputum Induced Gram Stain - Final Resulted 04/05/18 09:40 Sputum Induced Sputum Culture - Preliminary NO GROWTH AFTER 24 HOURS Resulted Objective HEAD AND NECK: Orally intubated with NG tube. LUNGS: Coarse rhonchi. CARDIOVASCULAR: Irregular S1 and S2 with no gallop. ABDOMEN: Soft. EXTREMITIES: 1+ pitting edema. Yohan Milian MD Apr 07, 2018 15:30
--- NOTE | 2018-04-07 17:30 | Internal Med Progress Note ---
Subjective Date of Service: Apr 07, 2018 Physician Name Dutta,Juan Attending Physician Yonathan Mendoza MD Current Medications Medications (Trade) Dose Ordered Sig/Ibrahima Route PRN Reason Start Time Stop Time Status Last Admin Dose Admin Acetaminophen (Tylenol) 650 mg Q4H PRN ORAL Fever (temp >100.3) 04/04/18 08:45 05/04/18 08:44 04/07/18 09:39 Acetazolamide (Diamox) 125 mg TWICE A DAY NG 04/05/18 18:00 04/07/18 18:00 04/07/18 17:22 Albuterol/ Ipratropium (Albuterol/ Ipratropium) 3 ml Q4H PRN HHN Shortness of Breath 04/04/18 08:45 04/09/18 08:44 Amiodarone HCl (Cordarone) 200 mg DAILY NG 04/05/18 09:00 05/05/18 08:59 04/07/18 09:06 Apixaban (Eliquis) 5 mg Q12HR ORAL 04/04/18 21:00 05/04/18 20:59 04/07/18 09:05 Ceftriaxone Sodium 2 gm/ Dextrose 110 ml @ 220 mls/hr Q24H IVPB 04/06/18 11:00 04/13/18 10:59 04/07/18 11:28 Dextrose (Dextrose 50%) 25 ml Q30M PRN IV Hypoglycemia 04/04/18 08:45 05/04/18 08:44 Dextrose (Dextrose 50%) 50 ml Q30M PRN IV Hypoglycemia 04/04/18 10:30 05/04/18 10:29 Diltiazem HCl (Cardizem) 90 mg EVERY 8 HOURS NG 04/04/18 22:00 05/04/18 21:59 04/07/18 14:04 Doxycycline Monohydrate (Vibramycin) 100 mg EVERY 12 HOURS ORAL 04/06/18 13:00 04/13/18 12:59 04/07/18 09:04 Fentanyl Citrate 1000 mcg/Sodium Chloride 100 ml @ 0 mls/hr Q24H IV 04/04/18 21:00 04/11/18 20:59 04/06/18 21:07 Furosemide (Lasix) 40 mg EVERY 8 HOURS IV 04/04/18 22:00 05/04/18 21:59 04/07/18 14:03 Haloperidol Lactate (Haldol) 5 mg Q6H PRN IM Agitation 04/06/18 12:46 05/06/18 12:45 Ipratropium [place] (Atrovent) 500 mcg Q6HRT HHN 04/04/18 19:00 04/09/18 18:59 04/07/18 13:04 Lorazepam (Ativan 2mg/ml 1ml) 2 mg Q4H PRN IV For Anxiety 04/04/18 08:45 04/11/18 08:44 04/07/18 17:22 Morphine Sulfate (Morphine Sulfate) 4 mg Q4H PRN IVP For Pain 04/04/18 08:45 04/11/18 08:44 Ondansetron HCl (Zofran) 4 mg Q6H PRN IVP Nausea & Vomiting 04/04/18 08:45 05/04/18 08:44 04/05/18 01:34 Pantoprazole (Protonix) 40 mg DAILY IV 04/04/18 10:15 05/04/18 10:14 04/07/18 09:03 Polyethylene Glycol (Miralax) 17 gm DAILYPRN PRN ORAL Constipation 04/04/18 08:45 05/04/18 08:44 Temazepam (Restoril) 15 mg HSPRN PRN ORAL Insomnia 04/04/18 08:45 04/11/18 08:44 04/06/18 20:26 Allergies: Coded Allergies: PIPERACILLIN (Unverified Allergy, Unknown, 03/10/18) TAZOBACTAM (Unverified Allergy, Unknown, 03/10/18) ROS Limited/Unobtainable: Yes Subjective 77 YO F admitted with respiratory failure and atrial flutter wit rapid ventricular rate. Intubated and sedated. Cover for - Dr Mendoza. ICU Objective Last Vital Signs Date Time Temp Pulse Resp B/P (MAP) Pulse Ox O2 Delivery O2 Flow Rate FiO2 04/07/18 17:01 63 15 35 04/07/18 14:04 132/66 04/07/18 13:15 98 Mechanical Ventilator 04/07/18 12:00 99.6 04/04/18 09:00 15.0 Laboratory Tests Test 04/06/18 23:30 04/07/18 04:00 04/07/18 09:00 Urine Legionella Antigen Pending White Blood Count 8.0 K/UL (4.8-10.8) Red Blood Count 3.66 M/UL (4.20-5.40) L Hemoglobin 10.5 G/DL (12.0-16.0) L Hematocrit 31.5 % (37.0-47.0) L Mean Corpuscular Volume 86 FL (80-99) Mean Corpuscular Hemoglobin 28.6 PG (27.0-31.0) Mean Corpuscular Hemoglobin Concent 33.2 G/DL (32.0-36.0) Red Cell Distribution Width 16.3 % (11.6-14.8) H Platelet Count 203 K/UL (150-450) Mean Platelet Volume 6.8 FL (6.5-10.1) Neutrophils (%) (Auto) 75.8 % (45.0-75.0) H Lymphocytes (%) (Auto) 15.4 % (20.0-45.0) L Monocytes (%) (Auto) 4.7 % (1.0-10.0) Eosinophils (%) (Auto) 3.7 % (0.0-3.0) H Basophils (%) (Auto) 0.3 % (0.0-2.0) Sodium Level 138 MMOL/L (136-145) Potassium Level 2.8 MMOL/L (3.5-5.1) L Chloride Level 102 MMOL/L (98-107) Carbon Dioxide Level 30 MMOL/L (21-32) Anion Gap 6 mmol/L (5-15) Blood Urea Nitrogen 14 mg/dL (7-18) Creatinine 0.9 MG/DL (0.55-1.30) Estimat Glomerular Filtration Rate mL/min (>60) Glucose Level 102 MG/DL (74-106) Calcium Level 8.0 MG/DL (8.5-10.1) L Phosphorus Level 3.8 MG/DL (2.5-4.9) Magnesium Level 1.7 MG/DL (1.8-2.4) L Total Bilirubin 0.4 MG/DL (0.2-1.0) Aspartate Amino Transf (AST/SGOT) 14 U/L (15-37) L Alanine Aminotransferase (ALT/SGPT) 9 U/L (12-78) L Alkaline Phosphatase 53 U/L (46-116) Total Protein 5.9 G/DL (6.4-8.2) L Albumin 2.4 G/DL (3.4-5.0) L Globulin 3.5 g/dL Albumin/Globulin Ratio 0.7 (1.0-2.7) L Arterial Blood pH 7.413 (7.350-7.450) Arterial Blood Partial Pressure CO2 48.3 mmHg (35.0-45.0) H Arterial Blood Partial Pressure O2 93.8 mmHg (75.0-100.0) Arterial Blood HCO3 30.1 mmol/L (22.0-26.0) H Arterial Blood Oxygen Saturation 96.8 % (95-100) Arterial Blood Base Excess 4.8 (-2-2) H Ian Test Positive Microbiology Date/Time Source Procedure Growth Status 04/05/18 09:40 Sputum Induced Gram Stain - Final Resulted 04/05/18 09:40 Sputum Induced Sputum Culture - Preliminary NO GROWTH AFTER 24 HOURS Resulted Intake and Output 04/06/18 04/07/18 18:59 06:59 Intake Total 963.5 ml 710 ml Output Total 780 ml 1240 ml Balance 183.5 ml -530 ml IV Total 423.5 ml 110 ml Tube Feeding 540 ml 600 ml Output Urine Total 780 ml 1240 ml Objective General Appearance: WD/WN, no apparent distress EENT: PERRL/EOMI, normal ENT inspection Neck: non-tender, normal alignment, supple Cardiovascular: normal peripheral pulses, regular rhythm, no gallop/murmur, no JVD, tachycardia Respiratory/Chest: Mech vent; chest wall non-tender, respiratory distress, crackles/rales, rhonchi - bilaterally, expiratory wheezing Abdomen: normal bowel sounds, non tender, soft, no organomegaly, no mass Extremities: normal range of motion, non-tender Skin: normal pigmentation, warm/dry Assessment/Plan Problem List: (1) Pneumonia Assessment & Plan: Continue vanco and ceftriaxone (2) Atrial fibrillation with RVR Assessment & Plan: Cntinue amiodarone-See cardiology note. (3) CHF (congestive heart failure) (4) COPD (chronic obstructive pulmonary disease) Assessment & Plan: see pulmonary note. (5) Pacemaker (6) CAD (coronary artery disease) (7) Seizure disorder (8) Bipolar depression (9) Respiratory failure, acute Assessment & Plan: Continue vent per pulmonary (10) UTI (lower urinary tract infection) Assessment & Plan: Proteus. Continue ceftriaxone per ID Status: not improved Juan Dutta MD Apr 07, 2018 17:30
--- NOTE | 2018-04-07 18:15 | Progress Note ---
DATE: 04/07/2018 SUBJECTIVE: The patient is more lethargic today. Has waxing and waning consciousness, episodes of agitation, and in no acute distress during my evaluation. MENTAL STATUS EXAMINATION: The patient is lethargic and confused. Mood is neutral. Affect is flat. Thought process, there is a paucity of thought content. Thought content, no suicidal or homicidal ideation. Cognition is impaired. ASSESSMENT: Encephalopathy due to general medical condition. PLAN: 1. The patient will be continued on p.r.n. Haldol IM. 2. Lorazepam p.r.n. 3. We will continue to follow and readjust the medication. Luiz Morrison M.D. DR: KRISHAN JOB#: [id number] CC:
[2018-04-08] VITALS (24 sets, daily range): BP systolic 93–140; BP diastolic 37–103
[2018-04-08] MEDS: Ipratropium 0.02% Inh Soln 2.5ml UD HHN SCH ×4 (01:07→19:10)
[2018-04-08 04:38] LABS: EOSINOPHILS % (AUTO) 5.4 % (0.0-3.0); HEMATOCRIT 36.2 % (37.0-47.0); HEMOGLOBIN 12.3 G/DL (12.0-16.0); LYMPHOCYTES % (AUTO) 16.8 % (20.0-45.0); MEAN CORPUSCULAR VOLUME 86 FL (80-99); MONOCYTES % (AUTO) 7.8 % (1.0-10.0); NEUTROPHILS % (AUTO) 69.1 % (45.0-75.0); PLATELET COUNT 184 K/UL (150-450); RED CELL DISTRIBUTION WIDTH 16.1 % (11.6-14.8); WHITE BLOOD COUNT 7.5 K/UL (4.8-10.8)
[2018-04-08 04:43] LABS: ALANINE AMINOTRANSFERASE 19 U/L (12-78); ALBUMIN 2.7 G/DL (3.4-5.0); ALBUMIN/GLOBULIN RATIO 0.7 (1.0-2.7); ALKALINE PHOSPHATASE 54 U/L (46-116); ANION GAP 7 mmol/L (5-15); ASPARTATE AMINO TRANSFERASE 35 U/L (15-37); BILIRUBIN,TOTAL 0.4 MG/DL (0.2-1.0); BLOOD UREA NITROGEN 24 mg/dL (7-18); CALCIUM 8.4 MG/DL (8.5-10.1); CARBON DIOXIDE 29 MMOL/L (21-32); CHLORIDE 102 MMOL/L (98-107); CREATININE 0.8 MG/DL (0.55-1.30); PHOSPHORUS 4.1 MG/DL (2.5-4.9); POTASSIUM 3.8 MMOL/L (3.5-5.1); SODIUM 138 MMOL/L (136-145)
[2018-04-08] MEDS: dilTIAZem HCl 90mg tab NG SCH ×3 (06:00→21:48)
[2018-04-08] MEDS: Pantoprazole Inj IV SCH (08:41)
[2018-04-08] MEDS: Amiodarone 200mg tab NG SCH (08:41)
[2018-04-08] MEDS: Eliquis 2.5mg tablet ORAL SCH ×2 (08:41→21:03)
--- NOTE | 2018-04-08 10:29 | Pulmonolgy Critical Care Note ---
Critical Care - Asmt/Plan Problems: (1) Respiratory failure, acute (2) Acute encephalopathy (3) Sepsis (4) Atrial fibrillation with RVR (5) Acute diastolic CHF (congestive heart failure) (6) COPD (chronic obstructive pulmonary disease) (7) Bipolar depression (8) Dementia Respiratory: monitor respiratory rate, adjust FIO2, CXR, weaning trial Cardiac: continue to monitor HR/BP Renal: F/U I&O, other - decrease lasix to Q12 Infectious Disease: check cultures Gastrointestinal: continue feedings/current rate Endocrine: monitor blood sugar Hematologic: monitor H/H Neurologic: PRN Morphine Affect: PRN ativan Prophylaxis: Protonix Disposition: keep in ICU Time Spent (Minutes): 40 Notes Reviewed: cardio Discussed with: nurses, consultants, telehealth case managertalent management manager - Objective Last 24 Hour Vital Signs Date Time Temp Pulse Resp B/P (MAP) Pulse Ox O2 Delivery O2 Flow Rate FiO2 04/08/18 10:00 60 18 108/44 (65) 100 04/08/18 09:00 60 15 120/47 (71) 100 04/08/18 09:00 60 13 35 04/08/18 08:00 98.8 60 18 112/47 (68) 96 04/08/18 08:00 35 04/08/18 08:00 Mechanical Ventilator 04/08/18 07:00 60 18 93/37 (55) 100 04/08/18 06:55 61 14 100 Mechanical Ventilator 35 04/08/18 06:45 62 12 100 Mechanical Ventilator 35 04/08/18 06:44 62 12 35 04/08/18 06:00 65 140/103 04/08/18 06:00 65 19 140/103 (115) 100 04/08/18 05:25 61 13 35 04/08/18 05:00 61 13 120/45 (70) 100 04/08/18 04:00 35 04/08/18 04:00 99.3 60 14 125/50 (75) 100 04/08/18 04:00 Mechanical Ventilator 04/08/18 04:00 60 04/08/18 03:08 60 17 35 04/08/18 03:00 60 16 114/47 (69) 100 04/08/18 02:00 60 19 103/45 (64) 100 04/08/18 01:18 60 12 100 Mechanical Ventilator 35 04/08/18 01:07 60 12 100 Mechanical Ventilator 35 04/08/18 01:07 60 12 35 04/08/18 01:00 60 15 98/42 (60) 100 04/08/18 00:00 Mechanical Ventilator 04/08/18 00:00 60 04/08/18 00:00 35 04/08/18 00:00 98.3 60 18 102/43 (62) 100 04/07/18 23:30 60 16 35 04/07/18 23:00 60 13 106/45 (65) 100 04/07/18 22:00 60 13 98/39 (58) 100 04/07/18 21:15 60 20 35 04/07/18 21:03 65 118/47 04/07/18 21:00 60 12 111/42 (65) 100 04/07/18 20:00 60 04/07/18 20:00 Mechanical Ventilator 04/07/18 20:00 98.9 60 13 118/47 (70) 100 04/07/18 20:00 35 04/07/18 19:12 60 12 100 Mechanical Ventilator 35 04/07/18 19:00 60 16 112/48 (69) 100 04/07/18 18:59 60 13 35 04/07/18 18:59 60 13 100 Mechanical Ventilator 35 04/07/18 18:30 62 19 110/49 (69) 99 04/07/18 18:00 60 20 112/49 (70) 99 04/07/18 17:01 63 15 35 04/07/18 17:00 64 20 119/58 (78) 99 04/07/18 16:30 65 21 121/47 (71) 99 04/07/18 16:00 Mechanical Ventilator 04/07/18 16:00 103 04/07/18 16:00 35 04/07/18 16:00 99.0 64 20 119/58 (78) 99 04/07/18 15:30 63 18 119/52 (74) 99 04/07/18 15:21 74 23 35 04/07/18 15:00 62 18 119/69 (86) 99 04/07/18 14:30 61 23 122/72 (89) 99 04/07/18 14:04 62 132/66 04/07/18 14:00 60 22 118/51 (73) 98 04/07/18 13:30 62 20 126/49 (74) 98 04/07/18 13:15 68 14 98 Mechanical Ventilator 35 04/07/18 13:04 61 16 35 04/07/18 13:04 60 16 99 Mechanical Ventilator 35 04/07/18 13:00 65 19 120/52 (74) 100 04/07/18 12:30 65 19 120/52 (74) 100 04/07/18 12:00 60 04/07/18 12:00 99.6 65 19 120/52 (74) 100 04/07/18 12:00 Mechanical Ventilator 04/07/18 11:30 65 18 106/74 (85) 99 04/07/18 11:00 64 17 97/43 (61) 99 04/07/18 10:48 73 19 35 04/07/18 10:30 62 17 107/54 (71) 98 Status: sedated Condition: critical HEENT: atraumatic Neck: full ROM Lungs: chest wall tender Heart: HR/BP stable Abdomen: soft, active bowel sounds Extremities: edema Decubiti: location Critical Care - Subjective ROS Limited/Unobtainable: Yes ICU Day: 4 Intubation Day: 4 Condition: critical EKG Rhythm: Sinus Rhythm FI02: 35 Vent Support Breath Rate: 12 Vent Support Mode: AC Vent Tidal Volume: 400 Sputum Amount: Small PEEP: 0.0 PIP: 25 Tube Feeding Amount: 50 I&O: Intake and Output 04/07/18 04/08/18 19:00 07:00 Intake Total 1780 ml 600 ml Output Total 995 ml 995 ml Balance 785 ml -395 ml IV Total 1120 ml Tube Feeding 600 ml 600 ml Other 60 ml Output Urine Total 995 ml 995 ml CXR: pulmonary edema ET-Tube: 7.5 ET Position: 23 Labs: Laboratory Tests Test 04/08/18 03:20 04/08/18 08:45 White Blood Count 7.5 K/UL (4.8-10.8) Red Blood Count 4.20 M/UL (4.20-5.40) Hemoglobin 12.3 G/DL (12.0-16.0) Hematocrit 36.2 % (37.0-47.0) L Mean Corpuscular Volume 86 FL (80-99) Mean Corpuscular Hemoglobin 29.2 PG (27.0-31.0) Mean Corpuscular Hemoglobin Concent 33.8 G/DL (32.0-36.0) Red Cell Distribution Width 16.1 % (11.6-14.8) H Platelet Count 184 K/UL (150-450) Mean Platelet Volume 6.8 FL (6.5-10.1) Neutrophils (%) (Auto) 69.1 % (45.0-75.0) Lymphocytes (%) (Auto) 16.8 % (20.0-45.0) L Monocytes (%) (Auto) 7.8 % (1.0-10.0) Eosinophils (%) (Auto) 5.4 % (0.0-3.0) H Basophils (%) (Auto) 1.0 % (0.0-2.0) Sodium Level 138 MMOL/L (136-145) Potassium Level 3.8 MMOL/L (3.5-5.1) Chloride Level 102 MMOL/L (98-107) Carbon Dioxide Level 29 MMOL/L (21-32) Anion Gap 7 mmol/L (5-15) Blood Urea Nitrogen 24 mg/dL (7-18) H Creatinine 0.8 MG/DL (0.55-1.30) Estimat Glomerular Filtration Rate mL/min (>60) Glucose Level 99 MG/DL (74-106) Calcium Level 8.4 MG/DL (8.5-10.1) L Phosphorus Level 4.1 MG/DL (2.5-4.9) Magnesium Level 2.2 MG/DL (1.8-2.4) Total Bilirubin 0.4 MG/DL (0.2-1.0) Aspartate Amino Transf (AST/SGOT) 35 U/L (15-37) Alanine Aminotransferase (ALT/SGPT) 19 U/L (12-78) Alkaline Phosphatase 54 U/L (46-116) Total Protein 6.8 G/DL (6.4-8.2) Albumin 2.7 G/DL (3.4-5.0) L Globulin 4.1 g/dL Albumin/Globulin Ratio 0.7 (1.0-2.7) L Arterial Blood pH 7.387 (7.350-7.450) Arterial Blood Partial Pressure CO2 51.9 mmHg (35.0-45.0) H Arterial Blood Partial Pressure O2 92.8 mmHg (75.0-100.0) Arterial Blood HCO3 30.5 mmol/L (22.0-26.0) H Arterial Blood Oxygen Saturation 96.4 % (95-100) Arterial Blood Base Excess 4.5 (-2-2) H Ian Test Positive Mendel Sierra MD Apr 08, 2018 10:29
[2018-04-08] MEDS: cefTRIAXone 2gm/D5W 110ml IVPB SCH ×2 (11:29)
--- NOTE | 2018-04-08 11:44 | Internal Med Progress Note ---
Subjective Date of Service: Apr 08, 2018 Physician Name DuttaJuan Attending Physician Yonathan Mendoza MD Current Medications Medications (Trade) Dose Ordered Sig/Ibrahima Route PRN Reason Start Time Stop Time Status Last Admin Dose Admin Acetaminophen (Tylenol) 650 mg Q4H PRN ORAL Fever (temp >100.3) 04/04/18 08:45 05/04/18 08:44 04/07/18 21:04 Albuterol/ Ipratropium (Albuterol/ Ipratropium) 3 ml Q4H PRN HHN Shortness of Breath 04/04/18 08:45 04/09/18 08:44 Amiodarone HCl (Cordarone) 200 mg DAILY NG 04/05/18 09:00 05/05/18 08:59 04/08/18 08:41 Apixaban (Eliquis) 5 mg Q12HR ORAL 04/04/18 21:00 05/04/18 20:59 04/08/18 08:41 Ceftriaxone Sodium 2 gm/ Dextrose 110 ml @ 220 mls/hr Q24H IVPB 04/06/18 11:00 04/13/18 10:59 04/08/18 11:29 Dextrose (Dextrose 50%) 25 ml Q30M PRN IV Hypoglycemia 04/04/18 08:45 05/04/18 08:44 Dextrose (Dextrose 50%) 50 ml Q30M PRN IV Hypoglycemia 04/04/18 10:30 05/04/18 10:29 Diltiazem HCl (Cardizem) 90 mg EVERY 8 HOURS NG 04/04/18 22:00 05/04/18 21:59 04/08/18 06:00 Doxycycline Monohydrate (Vibramycin) 100 mg EVERY 12 HOURS ORAL 04/06/18 13:00 04/13/18 12:59 04/08/18 08:42 Fentanyl Citrate 1000 mcg/Sodium Chloride 100 ml @ 0 mls/hr Q24H IV 04/04/18 21:00 04/11/18 20:59 04/06/18 21:07 Furosemide (Lasix) 40 mg EVERY 12 HOURS IV 04/08/18 21:00 05/04/18 21:59 Haloperidol Lactate (Haldol) 5 mg Q6H PRN IM Agitation 04/06/18 12:46 05/06/18 12:45 Ipratropium [place] (Atrovent) 500 mcg Q6HRT HHN 04/04/18 19:00 04/09/18 18:59 04/08/18 06:45 Lorazepam (Ativan 2mg/ml 1ml) 2 mg Q4H PRN IV For Anxiety 04/04/18 08:45 04/11/18 08:44 04/07/18 17:22 Morphine Sulfate (Morphine Sulfate) 4 mg Q4H PRN IVP For Pain 04/04/18 08:45 04/11/18 08:44 Ondansetron HCl (Zofran) 4 mg Q6H PRN IVP Nausea & Vomiting 04/04/18 08:45 05/04/18 08:44 04/05/18 01:34 Pantoprazole (Protonix) 40 mg DAILY IV 04/04/18 10:15 05/04/18 10:14 04/08/18 08:41 Polyethylene Glycol (Miralax) 17 gm DAILYPRN PRN ORAL Constipation 04/04/18 08:45 05/04/18 08:44 04/08/18 01:42 Temazepam (Restoril) 15 mg HSPRN PRN ORAL Insomnia 04/04/18 08:45 04/11/18 08:44 04/06/18 20:26 Allergies: Coded Allergies: PIPERACILLIN (Unverified Allergy, Unknown, 03/10/18) TAZOBACTAM (Unverified Allergy, Unknown, 03/10/18) ROS Limited/Unobtainable: Yes Subjective 77 YO F admitted with respiratory failure and atrial flutter wit rapid ventricular rate. Intubated and sedated. Cover for - Dr Mendoza. More alert today. On weaning protocol-CPAP. ICU Objective Last Vital Signs Date Time Temp Pulse Resp B/P (MAP) Pulse Ox O2 Delivery O2 Flow Rate FiO2 04/08/18 11:10 35 04/08/18 11:00 60 18 107/42 (63) 100 04/08/18 08:00 98.8 04/08/18 08:00 Mechanical Ventilator 04/04/18 09:00 15.0 Laboratory Tests Test 04/08/18 03:20 04/08/18 08:45 White Blood Count 7.5 K/UL (4.8-10.8) Red Blood Count 4.20 M/UL (4.20-5.40) Hemoglobin 12.3 G/DL (12.0-16.0) Hematocrit 36.2 % (37.0-47.0) L Mean Corpuscular Volume 86 FL (80-99) Mean Corpuscular Hemoglobin 29.2 PG (27.0-31.0) Mean Corpuscular Hemoglobin Concent 33.8 G/DL (32.0-36.0) Red Cell Distribution Width 16.1 % (11.6-14.8) H Platelet Count 184 K/UL (150-450) Mean Platelet Volume 6.8 FL (6.5-10.1) Neutrophils (%) (Auto) 69.1 % (45.0-75.0) Lymphocytes (%) (Auto) 16.8 % (20.0-45.0) L Monocytes (%) (Auto) 7.8 % (1.0-10.0) Eosinophils (%) (Auto) 5.4 % (0.0-3.0) H Basophils (%) (Auto) 1.0 % (0.0-2.0) Sodium Level 138 MMOL/L (136-145) Potassium Level 3.8 MMOL/L (3.5-5.1) Chloride Level 102 MMOL/L (98-107) Carbon Dioxide Level 29 MMOL/L (21-32) Anion Gap 7 mmol/L (5-15) Blood Urea Nitrogen 24 mg/dL (7-18) H Creatinine 0.8 MG/DL (0.55-1.30) Estimat Glomerular Filtration Rate mL/min (>60) Glucose Level 99 MG/DL (74-106) Calcium Level 8.4 MG/DL (8.5-10.1) L Phosphorus Level 4.1 MG/DL (2.5-4.9) Magnesium Level 2.2 MG/DL (1.8-2.4) Total Bilirubin 0.4 MG/DL (0.2-1.0) Aspartate Amino Transf (AST/SGOT) 35 U/L (15-37) Alanine Aminotransferase (ALT/SGPT) 19 U/L (12-78) Alkaline Phosphatase 54 U/L (46-116) Total Protein 6.8 G/DL (6.4-8.2) Albumin 2.7 G/DL (3.4-5.0) L Globulin 4.1 g/dL Albumin/Globulin Ratio 0.7 (1.0-2.7) L Arterial Blood pH 7.387 (7.350-7.450) Arterial Blood Partial Pressure CO2 51.9 mmHg (35.0-45.0) H Arterial Blood Partial Pressure O2 92.8 mmHg (75.0-100.0) Arterial Blood HCO3 30.5 mmol/L (22.0-26.0) H Arterial Blood Oxygen Saturation 96.4 % (95-100) Arterial Blood Base Excess 4.5 (-2-2) H Ian Test Positive Intake and Output 04/07/18 04/08/18 19:00 07:00 Intake Total 1780 ml 600 ml Output Total 995 ml 995 ml Balance 785 ml -395 ml IV Total 1120 ml Tube Feeding 600 ml 600 ml Other 60 ml Output Urine Total 995 ml 995 ml Objective General Appearance: WD/WN, no apparent distress EENT: PERRL/EOMI, normal ENT inspection Neck: non-tender, normal alignment, supple Cardiovascular: normal peripheral pulses, regular rhythm, no gallop/murmur, no JVD, tachycardia Respiratory/Chest: Mech vent; chest wall non-tender, respiratory distress, crackles/rales, rhonchi - bilaterally, expiratory wheezing Abdomen: normal bowel sounds, non tender, soft, no organomegaly, no mass Extremities: normal range of motion, non-tender Skin: normal pigmentation, warm/dry Assessment/Plan Problem List: (1) Pneumonia Assessment & Plan: Continue vanco and ceftriaxone (2) Atrial fibrillation with RVR Assessment & Plan: Cntinue amiodarone-See cardiology note. (3) CHF (congestive heart failure) (4) COPD (chronic obstructive pulmonary disease) Assessment & Plan: see pulmonary note. (5) Pacemaker (6) CAD (coronary artery disease) (7) Seizure disorder (8) Bipolar depression (9) Respiratory failure, acute Assessment & Plan: Continue vent per pulmonary (10) UTI (lower urinary tract infection) Assessment & Plan: Proteus. Continue ceftriaxone per ID Status: progressing Juan Dutta MD Apr 08, 2018 11:44
--- NOTE | 2018-04-08 12:09 | Diagnostic Imaging Report ---
Indication: Dyspnea Comparison: 04/07/2018 A single view chest radiograph was obtained. Findings: Interstitial edema again demonstrated. Cardiomegaly is present. NG tube is stable. Endotracheal tube is stable and the tip is situated just at the ramesh . Suggest pulling the tube up about 2 cm for better positioning. IMPRESSION: Endotracheal tube is low-lying right at the ramesh and should be pulled up about 2 cm. Interstitial edema unchanged
--- NOTE | 2018-04-08 14:03 | Cardiac Electrophysiology PN ---
Assessment/Plan Assessment/Plan 1. Atrial flutter with rapid ventricular response. rate controlled. On Cardizem 90 mg every 8 hours, apixaban 5 mg bid and amiodarone 200 mg daily. 2. Status post Medtronic Micra leadless pacemaker implantation in 2016 at [facility]. 3. Respiratory failure to diastolic dysfunction on Vent. EF of 55%. Decrease Lasix to 40 mg IV BID 4. Hypertension, on Lasix and Cardizem. 5. Psychosis and schizophrenia, on Risperdal. DYLAN RN Subjective Subjective In ICU on Vent. Remained in Atrial fib with controlled rate and occasionally V paced Objective Last 24 Hour Vital Signs Date Time Temp Pulse Resp B/P (MAP) Pulse Ox O2 Delivery O2 Flow Rate FiO2 04/08/18 13:00 62 27 105/41 (62) 99 04/08/18 12:40 35 04/08/18 12:38 66 26 98 Mechanical Ventilator 35 04/08/18 12:34 60 27 35 04/08/18 12:00 98.8 63 27 106/40 (62) 100 04/08/18 12:00 Mechanical Ventilator 04/08/18 11:10 35 04/08/18 11:00 60 18 107/42 (63) 100 04/08/18 10:48 63 32 35 04/08/18 10:35 35 04/08/18 10:35 60 25 35 04/08/18 10:35 99 04/08/18 10:33 60 13 35 04/08/18 10:16 60 04/08/18 10:00 60 18 108/44 (65) 100 04/08/18 09:00 60 15 120/47 (71) 100 04/08/18 09:00 60 13 35 04/08/18 08:00 98.8 60 18 112/47 (68) 96 04/08/18 08:00 35 04/08/18 08:00 Mechanical Ventilator 04/08/18 07:00 60 18 93/37 (55) 100 04/08/18 06:55 61 14 100 Mechanical Ventilator 35 04/08/18 06:45 62 12 100 Mechanical Ventilator 35 04/08/18 06:44 62 12 35 04/08/18 06:00 65 140/103 04/08/18 06:00 65 19 140/103 (115) 100 04/08/18 05:25 61 13 35 04/08/18 05:00 61 13 120/45 (70) 100 04/08/18 04:00 35 04/08/18 04:00 99.3 60 14 125/50 (75) 100 04/08/18 04:00 Mechanical Ventilator 04/08/18 04:00 60 04/08/18 03:08 60 17 35 04/08/18 03:00 60 16 114/47 (69) 100 04/08/18 02:00 60 19 103/45 (64) 100 04/08/18 01:18 60 12 100 Mechanical Ventilator 35 04/08/18 01:07 60 12 100 Mechanical Ventilator 35 04/08/18 01:07 60 12 35 04/08/18 01:00 60 15 98/42 (60) 100 04/08/18 00:00 Mechanical Ventilator 04/08/18 00:00 60 04/08/18 00:00 35 04/08/18 00:00 98.3 60 18 102/43 (62) 100 04/07/18 23:30 60 16 35 04/07/18 23:00 60 13 106/45 (65) 100 04/07/18 22:00 60 13 98/39 (58) 100 04/07/18 21:15 60 20 35 04/07/18 21:03 65 118/47 04/07/18 21:00 60 12 111/42 (65) 100 04/07/18 20:00 60 04/07/18 20:00 Mechanical Ventilator 04/07/18 20:00 98.9 60 13 118/47 (70) 100 04/07/18 20:00 35 04/07/18 19:12 60 12 100 Mechanical Ventilator 35 04/07/18 19:00 60 16 112/48 (69) 100 04/07/18 18:59 60 13 35 04/07/18 18:59 60 13 100 Mechanical Ventilator 35 04/07/18 18:30 62 19 110/49 (69) 99 04/07/18 18:00 60 20 112/49 (70) 99 04/07/18 17:01 63 15 35 04/07/18 17:00 64 20 119/58 (78) 99 04/07/18 16:30 65 21 121/47 (71) 99 04/07/18 16:00 Mechanical Ventilator 04/07/18 16:00 103 04/07/18 16:00 35 04/07/18 16:00 99.0 64 20 119/58 (78) 99 04/07/18 15:30 63 18 119/52 (74) 99 04/07/18 15:21 74 23 35 04/07/18 15:00 62 18 119/69 (86) 99 04/07/18 14:30 61 23 122/72 (89) 99 04/07/18 14:04 62 132/66 Intake and Output 04/07/18 04/08/18 19:00 07:00 Intake Total 1780 ml 600 ml Output Total 995 ml 995 ml Balance 785 ml -395 ml IV Total 1120 ml Tube Feeding 600 ml 600 ml Other 60 ml Output Urine Total 995 ml 995 ml Laboratory Tests Test 04/08/18 03:20 04/08/18 08:45 White Blood Count 7.5 K/UL (4.8-10.8) Red Blood Count 4.20 M/UL (4.20-5.40) Hemoglobin 12.3 G/DL (12.0-16.0) Hematocrit 36.2 % (37.0-47.0) L Mean Corpuscular Volume 86 FL (80-99) Mean Corpuscular Hemoglobin 29.2 PG (27.0-31.0) Mean Corpuscular Hemoglobin Concent 33.8 G/DL (32.0-36.0) Red Cell Distribution Width 16.1 % (11.6-14.8) H Platelet Count 184 K/UL (150-450) Mean Platelet Volume 6.8 FL (6.5-10.1) Neutrophils (%) (Auto) 69.1 % (45.0-75.0) Lymphocytes (%) (Auto) 16.8 % (20.0-45.0) L Monocytes (%) (Auto) 7.8 % (1.0-10.0) Eosinophils (%) (Auto) 5.4 % (0.0-3.0) H Basophils (%) (Auto) 1.0 % (0.0-2.0) Sodium Level 138 MMOL/L (136-145) Potassium Level 3.8 MMOL/L (3.5-5.1) Chloride Level 102 MMOL/L (98-107) Carbon Dioxide Level 29 MMOL/L (21-32) Anion Gap 7 mmol/L (5-15) Blood Urea Nitrogen 24 mg/dL (7-18) H Creatinine 0.8 MG/DL (0.55-1.30) Estimat Glomerular Filtration Rate mL/min (>60) Glucose Level 99 MG/DL (74-106) Calcium Level 8.4 MG/DL (8.5-10.1) L Phosphorus Level 4.1 MG/DL (2.5-4.9) Magnesium Level 2.2 MG/DL (1.8-2.4) Total Bilirubin 0.4 MG/DL (0.2-1.0) Aspartate Amino Transf (AST/SGOT) 35 U/L (15-37) Alanine Aminotransferase (ALT/SGPT) 19 U/L (12-78) Alkaline Phosphatase 54 U/L (46-116) Total Protein 6.8 G/DL (6.4-8.2) Albumin 2.7 G/DL (3.4-5.0) L Globulin 4.1 g/dL Albumin/Globulin Ratio 0.7 (1.0-2.7) L Arterial Blood pH 7.387 (7.350-7.450) Arterial Blood Partial Pressure CO2 51.9 mmHg (35.0-45.0) H Arterial Blood Partial Pressure O2 92.8 mmHg (75.0-100.0) Arterial Blood HCO3 30.5 mmol/L (22.0-26.0) H Arterial Blood Oxygen Saturation 96.4 % (95-100) Arterial Blood Base Excess 4.5 (-2-2) H Ian Test Positive Objective HEAD AND NECK: Orally intubated with NG tube. LUNGS: Coarse rhonchi. CARDIOVASCULAR: Irregular S1 and S2 with no gallop. ABDOMEN: Soft. EXTREMITIES: 1+ pitting edema. Yohan Milian MD Apr 08, 2018 14:03
--- NOTE | 2018-04-08 15:23 | General Progress Note ---
Assessment/Plan Problem List: (1) Schizophrenia ICD Codes: F20.9 - Schizophrenia, unspecified SNOMED: 37281401 (2) Encephalopathy acute Assessment & Plan: (1) Schizophrenia ICD Codes: F20.9 - Schizophrenia, unspecified SNOMED: 94785381 (2) Encephalopathy acute ICD Codes: G93.40 - Encephalopathy, unspecified SNOMED: 4813956 Status: unchanged Assessment/Plan Ativan IM prn haldol IM prn the pts Risperdal was discontinued ICD Codes: G93.40 - Encephalopathy, unspecified SNOMED: 7399047 Status: stable Assessment/Plan Ativan IM prn haldol IM prn cont to monitor Subjective Date patient seen: Apr 08, 2018 Neurologic/Psychiatric: Reports: anxiety Allergies: Coded Allergies: PIPERACILLIN (Unverified Allergy, Unknown, 03/10/18) TAZOBACTAM (Unverified Allergy, Unknown, 03/10/18) Subjective the pt is lethargic and has episodes of agitation waxing and waning Objective Last 24 Hour Vital Signs Date Time Temp Pulse Resp B/P (MAP) Pulse Ox O2 Delivery O2 Flow Rate FiO2 04/08/18 14:57 67 125/48 04/08/18 13:50 64 25 100 Mechanical Ventilator 35 04/08/18 13:00 62 27 105/41 (62) 99 04/08/18 12:40 35 04/08/18 12:38 66 26 98 Mechanical Ventilator 35 04/08/18 12:34 60 27 35 04/08/18 12:00 98.8 63 27 106/40 (62) 100 04/08/18 12:00 Mechanical Ventilator 04/08/18 11:10 35 04/08/18 11:00 60 18 107/42 (63) 100 04/08/18 10:48 63 32 35 04/08/18 10:35 35 04/08/18 10:35 60 25 35 04/08/18 10:35 99 04/08/18 10:33 60 13 35 04/08/18 10:16 60 04/08/18 10:00 60 18 108/44 (65) 100 04/08/18 09:00 60 15 120/47 (71) 100 04/08/18 09:00 60 13 35 04/08/18 08:00 98.8 60 18 112/47 (68) 96 04/08/18 08:00 35 04/08/18 08:00 Mechanical Ventilator 04/08/18 07:00 60 18 93/37 (55) 100 04/08/18 06:55 61 14 100 Mechanical Ventilator 35 04/08/18 06:45 62 12 100 Mechanical Ventilator 35 04/08/18 06:44 62 12 35 04/08/18 06:00 65 140/103 04/08/18 06:00 65 19 140/103 (115) 100 04/08/18 05:25 61 13 35 04/08/18 05:00 61 13 120/45 (70) 100 04/08/18 04:00 35 04/08/18 04:00 99.3 60 14 125/50 (75) 100 04/08/18 04:00 Mechanical Ventilator 04/08/18 04:00 60 04/08/18 03:08 60 17 35 04/08/18 03:00 60 16 114/47 (69) 100 04/08/18 02:00 60 19 103/45 (64) 100 04/08/18 01:18 60 12 100 Mechanical Ventilator 35 04/08/18 01:07 60 12 100 Mechanical Ventilator 35 04/08/18 01:07 60 12 35 04/08/18 01:00 60 15 98/42 (60) 100 04/08/18 00:00 Mechanical Ventilator 04/08/18 00:00 60 04/08/18 00:00 35 04/08/18 00:00 98.3 60 18 102/43 (62) 100 04/07/18 23:30 60 16 35 04/07/18 23:00 60 13 106/45 (65) 100 04/07/18 22:00 60 13 98/39 (58) 100 04/07/18 21:15 60 20 35 04/07/18 21:03 65 118/47 04/07/18 21:00 60 12 111/42 (65) 100 04/07/18 20:00 60 04/07/18 20:00 Mechanical Ventilator 04/07/18 20:00 98.9 60 13 118/47 (70) 100 04/07/18 20:00 35 04/07/18 19:12 60 12 100 Mechanical Ventilator 35 04/07/18 19:00 60 16 112/48 (69) 100 11/6/18 18:59 60 13 35 04/07/18 18:59 60 13 100 Mechanical Ventilator 35 04/07/18 18:30 62 19 110/49 (69) 99 04/07/18 18:00 60 20 112/49 (70) 99 04/07/18 17:01 63 15 35 04/07/18 17:00 64 20 119/58 (78) 99 04/07/18 16:30 65 21 121/47 (71) 99 04/07/18 16:00 Mechanical Ventilator 04/07/18 16:00 103 04/07/18 16:00 35 04/07/18 16:00 99.0 64 20 119/58 (78) 99 04/07/18 15:30 63 18 119/52 (74) 99 Intake and Output 04/07/18 04/08/18 19:00 07:00 Intake Total 1780 ml 600 ml Output Total 995 ml 995 ml Balance 785 ml -395 ml IV Total 1120 ml Tube Feeding 600 ml 600 ml Other 60 ml Output Urine Total 995 ml 995 ml Laboratory Tests 04/08/18 03:20: White Blood Count 7.5, Red Blood Count 4.20, Hemoglobin 12.3, Hematocrit 36.2L, Mean Corpuscular Volume 86, Mean Corpuscular Hemoglobin 29.2, Mean Corpuscular Hemoglobin Concent 33.8, Red Cell Distribution Width 16.1H, Platelet Count 184, Mean Platelet Volume 6.8, Neutrophils (%) (Auto) 69.1, Lymphocytes (%) (Auto) 16.8L, Monocytes (%) (Auto) 7.8, Eosinophils (%) (Auto) 5.4H, Basophils (%) ( Auto) 1.0, Sodium Level 138, Potassium Level 3.8, Chloride Level 102, Carbon Dioxide Level 29, Anion Gap 7, Blood Urea Nitrogen 24H, Creatinine 0.8, Estimat Glomerular Filtration Rate , Glucose Level 99, Calcium Level 8.4L, Phosphorus Level 4.1, Magnesium Level 2.2, Total Bilirubin 0.4, Aspartate Amino Transf (AST /SGOT) 35, Alanine Aminotransferase (ALT/SGPT) 19, Alkaline Phosphatase 54, Total Protein 6.8, Albumin 2.7L, Globulin 4.1, Albumin/Globulin Ratio 0.7L 04/08/18 08:45: Arterial Blood pH 7.387, Arterial Blood Partial Pressure CO2 51.9H, Arterial Blood Partial Pressure O2 92.8, Arterial Blood HCO3 30.5H, Arterial Blood Oxygen Saturation 96.4, Arterial Blood Base Excess 4.5H, Ian Test Positive Height (Feet): 5 Height (Inches): 7.00 Weight (Pounds): 175 General Appearance: lethargic, confused, moderate distress Luiz Morrison MD Apr 08, 2018 15:23
[2018-04-08] MEDS: LORazepam Inj 2mg/ml 1ml IV PRN (15:42)
--- NOTE | 2018-04-08 16:06 | Infectious Diseases Prog Note ---
Assessment/Plan Assessment/Plan ASSESSMENT: The patient is a 77-year-old female with: febrile, low grade x 1 Normal white blood cells. UTI Proteus mirabilis. Probable pneumonia, ? atypical. Flu screen negative Atrial flutter CHF COPD CAD Hypertension Seizure disorder Schizophrenia Depression History of intraventricular pacemaker implantation PLAN: continue on Rocephin day # 4/ 7 and Doxy d# 3/5 11/6 Sp IV vancomycin d # 3 Monitor CBC Monitor BMP Monitor cultures (blood, sputum) Urine Legionella antigen / Ab Monitor chest x-ray Subjective Allergies: Coded Allergies: PIPERACILLIN (Unverified Allergy, Unknown, 03/10/18) TAZOBACTAM (Unverified Allergy, Unknown, 03/10/18) Subjective pt is in ICU afebrile Objective Vital Signs Last 24 Hour Vital Signs Date Time Temp Pulse Resp B/P (MAP) Pulse Ox O2 Delivery O2 Flow Rate FiO2 04/08/18 15:30 35 04/08/18 15:30 71 25 35 04/08/18 15:00 71 28 139/52 (81) 99 04/08/18 14:57 67 125/48 04/08/18 14:00 60 27 105/45 (65) 99 04/08/18 13:50 64 25 100 Mechanical Ventilator 35 04/08/18 13:00 62 27 105/41 (62) 99 04/08/18 12:40 35 04/08/18 12:38 66 26 98 Mechanical Ventilator 35 04/08/18 12:34 60 27 35 04/08/18 12:00 98.8 63 27 106/40 (62) 100 04/08/18 12:00 Mechanical Ventilator 04/08/18 11:37 66 04/08/18 11:10 35 04/08/18 11:00 60 18 107/42 (63) 100 04/08/18 10:48 63 32 35 04/08/18 10:35 35 04/08/18 10:35 60 25 35 04/08/18 10:35 99 04/08/18 10:33 60 13 35 04/08/18 10:16 60 04/08/18 10:00 60 18 108/44 (65) 100 04/08/18 09:00 60 15 120/47 (71) 100 04/08/18 09:00 60 13 35 04/08/18 08:00 98.8 60 18 112/47 (68) 96 04/08/18 08:00 35 04/08/18 08:00 Mechanical Ventilator 04/08/18 07:00 60 18 93/37 (55) 100 04/08/18 06:55 61 14 100 Mechanical Ventilator 35 04/08/18 06:45 62 12 100 Mechanical Ventilator 35 04/08/18 06:44 62 12 35 04/08/18 06:00 65 140/103 04/08/18 06:00 65 19 140/103 (115) 100 04/08/18 05:25 61 13 35 04/08/18 05:00 61 13 120/45 (70) 100 04/08/18 04:00 35 04/08/18 04:00 99.3 60 14 125/50 (75) 100 04/08/18 04:00 Mechanical Ventilator 04/08/18 04:00 60 04/08/18 03:08 60 17 35 04/08/18 03:00 60 16 114/47 (69) 100 04/08/18 02:00 60 19 103/45 (64) 100 04/08/18 01:18 60 12 100 Mechanical Ventilator 35 04/08/18 01:07 60 12 100 Mechanical Ventilator 35 04/08/18 01:07 60 12 35 04/08/18 01:00 60 15 98/42 (60) 100 04/08/18 00:00 Mechanical Ventilator 04/08/18 00:00 60 04/08/18 00:00 35 04/08/18 00:00 98.3 60 18 102/43 (62) 100 04/07/18 23:30 60 16 35 04/07/18 23:00 60 13 106/45 (65) 100 04/07/18 22:00 60 13 98/39 (58) 100 04/07/18 21:15 60 20 35 04/07/18 21:03 65 118/47 04/07/18 21:00 60 12 111/42 (65) 100 04/07/18 20:00 60 04/07/18 20:00 Mechanical Ventilator 04/07/18 20:00 98.9 60 13 118/47 (70) 100 04/07/18 20:00 35 04/07/18 19:12 60 12 100 Mechanical Ventilator 35 04/07/18 19:00 60 16 112/48 (69) 100 04/07/18 18:59 60 13 35 04/07/18 18:59 60 13 100 Mechanical Ventilator 35 04/07/18 18:30 62 19 110/49 (69) 99 04/07/18 18:00 60 20 112/49 (70) 99 04/07/18 17:01 63 15 35 04/07/18 17:00 64 20 119/58 (78) 99 04/07/18 16:30 65 21 121/47 (71) 99 Height (Feet): 5 Height (Inches): 7.00 Weight (Pounds): 175 HEENT: anicteric Respiratory/Chest: no respiratory distress Cardiovascular: regularly irregular Abdomen: non distended Laboratory Tests Test 04/08/18 03:20 04/08/18 08:45 White Blood Count 7.5 K/UL (4.8-10.8) Red Blood Count 4.20 M/UL (4.20-5.40) Hemoglobin 12.3 G/DL (12.0-16.0) Hematocrit 36.2 % (37.0-47.0) L Mean Corpuscular Volume 86 FL (80-99) Mean Corpuscular Hemoglobin 29.2 PG (27.0-31.0) Mean Corpuscular Hemoglobin Concent 33.8 G/DL (32.0-36.0) Red Cell Distribution Width 16.1 % (11.6-14.8) H Platelet Count 184 K/UL (150-450) Mean Platelet Volume 6.8 FL (6.5-10.1) Neutrophils (%) (Auto) 69.1 % (45.0-75.0) Lymphocytes (%) (Auto) 16.8 % (20.0-45.0) L Monocytes (%) (Auto) 7.8 % (1.0-10.0) Eosinophils (%) (Auto) 5.4 % (0.0-3.0) H Basophils (%) (Auto) 1.0 % (0.0-2.0) Sodium Level 138 MMOL/L (136-145) Potassium Level 3.8 MMOL/L (3.5-5.1) Chloride Level 102 MMOL/L (98-107) Carbon Dioxide Level 29 MMOL/L (21-32) Anion Gap 7 mmol/L (5-15) Blood Urea Nitrogen 24 mg/dL (7-18) H Creatinine 0.8 MG/DL (0.55-1.30) Estimat Glomerular Filtration Rate mL/min (>60) Glucose Level 99 MG/DL (74-106) Calcium Level 8.4 MG/DL (8.5-10.1) L Phosphorus Level 4.1 MG/DL (2.5-4.9) Magnesium Level 2.2 MG/DL (1.8-2.4) Total Bilirubin 0.4 MG/DL (0.2-1.0) Aspartate Amino Transf (AST/SGOT) 35 U/L (15-37) Alanine Aminotransferase (ALT/SGPT) 19 U/L (12-78) Alkaline Phosphatase 54 U/L (46-116) Total Protein 6.8 G/DL (6.4-8.2) Albumin 2.7 G/DL (3.4-5.0) L Globulin 4.1 g/dL Albumin/Globulin Ratio 0.7 (1.0-2.7) L Arterial Blood pH 7.387 (7.350-7.450) Arterial Blood Partial Pressure CO2 51.9 mmHg (35.0-45.0) H Arterial Blood Partial Pressure O2 92.8 mmHg (75.0-100.0) Arterial Blood HCO3 30.5 mmol/L (22.0-26.0) H Arterial Blood Oxygen Saturation 96.4 % (95-100) Arterial Blood Base Excess 4.5 (-2-2) H Ian Test Positive Current Medications Medications (Trade) Dose Ordered Sig/Ibrahima Route PRN Reason Start Time Stop Time Status Last Admin Dose Admin Acetaminophen (Tylenol) 650 mg Q4H PRN ORAL Fever (temp >100.3) 04/04/18 08:45 05/04/18 08:44 04/07/18 21:04 Albuterol/ Ipratropium (Albuterol/ Ipratropium) 3 ml Q4H PRN HHN Shortness of Breath 04/04/18 08:45 04/09/18 08:44 Amiodarone HCl (Cordarone) 200 mg DAILY NG 04/05/18 09:00 05/05/18 08:59 04/08/18 08:41 Apixaban (Eliquis) 5 mg Q12HR ORAL 04/04/18 21:00 05/04/18 20:59 04/08/18 08:41 Ceftriaxone Sodium 2 gm/ Dextrose 110 ml @ 220 mls/hr Q24H IVPB 04/06/18 11:00 04/13/18 10:59 04/08/18 11:29 Dextrose (Dextrose 50%) 25 ml Q30M PRN IV Hypoglycemia 04/04/18 08:45 05/04/18 08:44 Dextrose (Dextrose 50%) 50 ml Q30M PRN IV Hypoglycemia 04/04/18 10:30 05/04/18 10:29 Diltiazem HCl (Cardizem) 90 mg EVERY 8 HOURS NG 04/04/18 22:00 05/04/18 21:59 04/08/18 14:57 Doxycycline Monohydrate (Vibramycin) 100 mg EVERY 12 HOURS ORAL 04/06/18 13:00 04/13/18 12:59 04/08/18 08:42 Furosemide (Lasix) 40 mg EVERY 12 HOURS IV 04/08/18 21:00 05/04/18 21:59 Haloperidol Lactate (Haldol) 5 mg Q6H PRN IM Agitation 04/06/18 12:46 05/06/18 12:45 Ipratropium [place] (Atrovent) 500 mcg Q6HRT HHN 04/04/18 19:00 04/09/18 18:59 04/08/18 12:38 Lorazepam (Ativan 2mg/ml 1ml) 2 mg Q4H PRN IV For Anxiety 04/04/18 08:45 04/11/18 08:44 04/08/18 15:42 Morphine Sulfate (Morphine Sulfate) 4 mg Q4H PRN IVP For Pain 04/04/18 08:45 04/11/18 08:44 Ondansetron HCl (Zofran) 4 mg Q6H PRN IVP Nausea & Vomiting 04/04/18 08:45 05/04/18 08:44 04/05/18 01:34 Pantoprazole (Protonix) 40 mg DAILY IV 04/04/18 10:15 05/04/18 10:14 04/08/18 08:41 Polyethylene Glycol (Miralax) 17 gm DAILYPRN PRN ORAL Constipation 04/04/18 08:45 05/04/18 08:44 04/08/18 01:42 Temazepam (Restoril) 15 mg HSPRN PRN ORAL Insomnia 04/04/18 08:45 04/11/18 08:44 04/06/18 20:26 Juan Moeller MD Apr 08, 2018 16:06
[2018-04-09] VITALS (24 sets, daily range): BP systolic 97–146; BP diastolic 42–84
[2018-04-09] MEDS: LORazepam Inj 2mg/ml 1ml IV PRN
[2018-04-09] MEDS: Ipratropium 0.02% Inh Soln 2.5ml UD HHN SCH ×3 (01:12→13:05)
[2018-04-09 04:26] LABS: BASOPHILS % (AUTO) 0.6 % (0.0-2.0); EOSINOPHILS % (AUTO) 4.5 % (0.0-3.0); HEMATOCRIT 30.8 % (37.0-47.0); HEMOGLOBIN 10.2 G/DL (12.0-16.0); LYMPHOCYTES % (AUTO) 13.2 % (20.0-45.0); MEAN CORPUSCULAR VOLUME 86 FL (80-99); NEUTROPHILS % (AUTO) 73.6 % (45.0-75.0); PLATELET COUNT 192 K/UL (150-450); RED BLOOD COUNT 3.58 M/UL (4.20-5.40); RED CELL DISTRIBUTION WIDTH 15.7 % (11.6-14.8); WHITE BLOOD COUNT 8.3 K/UL (4.8-10.8)
[2018-04-09 04:48] LABS: ALANINE AMINOTRANSFERASE 10 U/L (12-78); ALBUMIN 2.4 G/DL (3.4-5.0); ALBUMIN/GLOBULIN RATIO 0.7 (1.0-2.7); ALKALINE PHOSPHATASE 49 U/L (46-116); ANION GAP 8 mmol/L (5-15); ASPARTATE AMINO TRANSFERASE 14 U/L (15-37); BILIRUBIN,TOTAL 0.3 MG/DL (0.2-1.0); BLOOD UREA NITROGEN 23 mg/dL (7-18); CALCIUM 8.1 MG/DL (8.5-10.1); CARBON DIOXIDE 30 MMOL/L (21-32); CHLORIDE 104 MMOL/L (98-107); CREATININE 0.6 MG/DL (0.55-1.30); PHOSPHORUS 4.1 MG/DL (2.5-4.9); POTASSIUM 3.1 MMOL/L (3.5-5.1); SODIUM 141 MMOL/L (136-145)
[2018-04-09] MEDS: dilTIAZem HCl 90mg tab NG SCH ×3 (05:37→21:59)
[2018-04-09] MEDS: Pantoprazole Inj IV SCH (08:56)
[2018-04-09] MEDS: Amiodarone 200mg tab NG SCH (08:57)
[2018-04-09] MEDS: Eliquis 2.5mg tablet ORAL SCH ×2 (08:57→20:34)
--- NOTE | 2018-04-09 09:53 | Pulmonolgy Critical Care Note ---
Critical Care - Asmt/Plan Problems: (1) Respiratory failure, acute (2) Acute encephalopathy (3) Sepsis (4) Atrial fibrillation with RVR (5) Acute diastolic CHF (congestive heart failure) (6) COPD (chronic obstructive pulmonary disease) (7) Bipolar depression (8) Dementia Respiratory: monitor respiratory rate, adjust FIO2, CXR, other - extubate when stable Cardiac: continue to monitor HR/BP Renal: F/U I&O, check electrolytes Infectious Disease: check cultures, continue antibiotics Gastrointestinal: continue feedings/current rate Endocrine: monitor blood sugar Hematologic: monitor H/H Neurologic: PRN Ativan Affect: PRN ativan Prophylaxis: Protonix Critical Care - Objective Last 24 Hour Vital Signs Date Time Temp Pulse Resp B/P (MAP) Pulse Ox O2 Delivery O2 Flow Rate FiO2 04/09/18 08:57 61 30 Mechanical Ventilator 35 04/09/18 08:56 99 04/09/18 08:50 60 35 35 04/09/18 08:00 60 14 119/50 (73) 100 04/09/18 08:00 Mechanical Ventilator 04/09/18 08:00 35 04/09/18 07:00 99.0 60 25 103/59 (74) 97 04/09/18 07:00 60 12 100 Mechanical Ventilator 35 04/09/18 06:52 60 15 35 04/09/18 06:51 60 15 100 Mechanical Ventilator 35 04/09/18 06:07 60 20 104/43 (63) 99 04/09/18 05:37 60 124/61 04/09/18 05:22 61 24 35 04/09/18 05:00 60 20 124/61 (82) 99 04/09/18 04:00 35 04/09/18 04:00 60 04/09/18 04:00 98.0 60 17 131/52 (78) 100 04/09/18 04:00 Mechanical Ventilator 04/09/18 03:15 60 14 35 04/09/18 03:00 60 12 100/53 (69) 99 04/09/18 02:00 60 22 110/51 (70) 99 04/09/18 01:22 60 17 100 Mechanical Ventilator 35 04/09/18 01:12 60 15 35 04/09/18 01:12 60 15 98 Mechanical Ventilator 35 04/09/18 01:00 60 21 112/48 (69) 99 04/09/18 00:07 Mechanical Ventilator 04/09/18 00:02 98.4 60 13 115/49 (71) 100 04/08/18 23:08 60 15 35 04/08/18 23:00 60 14 103/44 (63) 100 04/08/18 22:00 60 21 121/50 (73) 100 04/08/18 21:48 60 130/47 04/08/18 21:15 60 15 35 04/08/18 21:00 60 23 130/47 (74) 100 04/08/18 20:00 Mechanical Ventilator 04/08/18 20:00 35 04/08/18 20:00 60 22 104/47 (66) 100 04/08/18 20:00 60 04/08/18 19:30 98.4 04/08/18 19:10 60 12 100 Mechanical Ventilator 35 04/08/18 19:05 60 16 35 04/08/18 19:05 60 16 100 Mechanical Ventilator 35 04/08/18 19:00 60 16 108/40 (62) 100 04/08/18 18:06 60 04/08/18 18:00 61 19 124/52 (76) 99 04/08/18 17:19 60 12 35 04/08/18 17:00 60 22 118/50 (72) 100 04/08/18 16:00 98.7 60 16 98/42 (60) 98 04/08/18 16:00 Mechanical Ventilator 04/08/18 15:30 35 04/08/18 15:30 71 25 35 04/08/18 15:00 71 28 139/52 (81) 99 04/08/18 14:57 67 125/48 04/08/18 14:00 60 27 105/45 (65) 99 04/08/18 13:50 64 25 100 Mechanical Ventilator 35 04/08/18 13:00 62 27 105/41 (62) 99 04/08/18 12:40 35 04/08/18 12:38 66 26 98 Mechanical Ventilator 35 04/08/18 12:34 60 27 35 04/08/18 12:00 98.8 63 27 106/40 (62) 100 04/08/18 12:00 Mechanical Ventilator 04/08/18 11:37 66 04/08/18 11:10 35 04/08/18 11:00 60 18 107/42 (63) 100 04/08/18 10:48 63 32 35 04/08/18 10:35 35 04/08/18 10:35 60 25 35 04/08/18 10:35 99 04/08/18 10:33 60 13 35 04/08/18 10:16 60 04/08/18 10:00 60 18 108/44 (65) 100 Status: awake Condition: critical HEENT: atraumatic Neck: full ROM Lungs: clear, rales, rhonchi Heart: HR/BP stable Abdomen: soft, non-tender Extremities: no C/C/E Critical Care - Subjective ROS Limited/Unobtainable: Yes Condition: critical EKG Rhythm: Sinus Rhythm FI02: 35 Vent Support Breath Rate: 12 Vent Support Mode: CPAP Vent Tidal Volume: 400 Sputum Amount: Small PEEP: 0.0 PIP: 8 Tube Feeding Amount: 50 I&O: Intake and Output 04/08/18 04/09/18 19:00 07:00 Intake Total 860 ml 630 ml Output Total 920 ml 760 ml Balance -60 ml -130 ml Free Water 100 ml IV Total 110 ml Tube Feeding 600 ml 600 ml Other 50 ml 30 ml Output Urine Total 920 ml 760 ml CXR: ET in good position, less pulmonary edema ET-Tube: 7.5 ET Position: 23 Labs: Laboratory Tests Test 04/09/18 03:30 04/09/18 08:42 White Blood Count 8.3 K/UL (4.8-10.8) Red Blood Count 3.58 M/UL (4.20-5.40) L Hemoglobin 10.2 G/DL (12.0-16.0) L Hematocrit 30.8 % (37.0-47.0) L Mean Corpuscular Volume 86 FL (80-99) Mean Corpuscular Hemoglobin 28.6 PG (27.0-31.0) Mean Corpuscular Hemoglobin Concent 33.2 G/DL (32.0-36.0) Red Cell Distribution Width 15.7 % (11.6-14.8) H Platelet Count 192 K/UL (150-450) Mean Platelet Volume 7.7 FL (6.5-10.1) Neutrophils (%) (Auto) 73.6 % (45.0-75.0) Lymphocytes (%) (Auto) 13.2 % (20.0-45.0) L Monocytes (%) (Auto) 8.0 % (1.0-10.0) Eosinophils (%) (Auto) 4.5 % (0.0-3.0) H Basophils (%) (Auto) 0.6 % (0.0-2.0) Sodium Level 141 MMOL/L (136-145) Potassium Level 3.1 MMOL/L (3.5-5.1) L Chloride Level 104 MMOL/L (98-107) Carbon Dioxide Level 30 MMOL/L (21-32) Anion Gap 8 mmol/L (5-15) Blood Urea Nitrogen 23 mg/dL (7-18) H Creatinine 0.6 MG/DL (0.55-1.30) Estimat Glomerular Filtration Rate mL/min (>60) Glucose Level 117 MG/DL (74-106) H Calcium Level 8.1 MG/DL (8.5-10.1) L Phosphorus Level 4.1 MG/DL (2.5-4.9) Magnesium Level 2.0 MG/DL (1.8-2.4) Total Bilirubin 0.3 MG/DL (0.2-1.0) Aspartate Amino Transf (AST/SGOT) 14 U/L (15-37) L Alanine Aminotransferase (ALT/SGPT) 10 U/L (12-78) L Alkaline Phosphatase 49 U/L (46-116) Total Protein 6.0 G/DL (6.4-8.2) L Albumin 2.4 G/DL (3.4-5.0) L Globulin 3.6 g/dL Albumin/Globulin Ratio 0.7 (1.0-2.7) L Arterial Blood pH 7.508 (7.350-7.450) Arterial Blood Partial Pressure CO2 37.6 mmHg (35.0-45.0) Arterial Blood Partial Pressure O2 172.4 mmHg (75.0-100.0) H Arterial Blood HCO3 29.2 mmol/L (22.0-26.0) H Arterial Blood Oxygen Saturation 98.7 % (95-100) Arterial Blood Base Excess 5.9 (-2-2) H Ian Test Positive Mendel Sierra MD Apr 09, 2018 09:53
--- NOTE | 2018-04-09 09:56 | Diagnostic Imaging Report ---
Indication: Dyspnea Comparison: 04/08/2018 A single view chest radiograph was obtained. Findings: Endotracheal tube is just above the ramesh in good position. NG tube remains in good position. Interstitial edema again demonstrated. Cardiomegaly is present. There are probable small bilateral pleural effusions again demonstrated. IMPRESSION: Endotracheal tube just above the ramesh in good position. No change otherwise
--- NOTE | 2018-04-09 10:15 | Cardiac Electrophysiology PN ---
Assessment/Plan Assessment/Plan 1. Atrial flutter with rapid ventricular response. rate controlled. On Cardizem 90 mg every 8 hours, apixaban 5 mg bid and amiodarone 200 mg daily. 2. Status post Medtronic Micra leadless pacemaker implantation in 2016 at [facility]. 3. Respiratory failure to diastolic dysfunction on Vent. EF of 55%. On Lasix 40 mg IV BID. weaning in progress 4. Hypertension, on Lasix and Cardizem. 5. Psychosis and schizophrenia, on Risperdal. DYLAN RN Subjective Subjective In ICU on Vent. Remained in Atrial fib with controlled rate and occasionally V paced Objective Last 24 Hour Vital Signs Date Time Temp Pulse Resp B/P (MAP) Pulse Ox O2 Delivery O2 Flow Rate FiO2 04/09/18 08:57 61 30 Mechanical Ventilator 35 04/09/18 08:56 99 04/09/18 08:50 60 35 35 04/09/18 08:00 60 14 119/50 (73) 100 04/09/18 08:00 Mechanical Ventilator 04/09/18 08:00 35 04/09/18 07:00 99.0 60 25 103/59 (74) 97 04/09/18 07:00 60 12 100 Mechanical Ventilator 35 04/09/18 06:52 60 15 35 04/09/18 06:51 60 15 100 Mechanical Ventilator 35 04/09/18 06:07 60 20 104/43 (63) 99 04/09/18 05:37 60 124/61 04/09/18 05:22 61 24 35 04/09/18 05:00 60 20 124/61 (82) 99 04/09/18 04:00 35 04/09/18 04:00 60 04/09/18 04:00 98.0 60 17 131/52 (78) 100 04/09/18 04:00 Mechanical Ventilator 04/09/18 03:15 60 14 35 04/09/18 03:00 60 12 100/53 (69) 99 04/09/18 02:00 60 22 110/51 (70) 99 04/09/18 01:22 60 17 100 Mechanical Ventilator 35 04/09/18 01:12 60 15 35 04/09/18 01:12 60 15 98 Mechanical Ventilator 35 04/09/18 01:00 60 21 112/48 (69) 99 04/09/18 00:07 Mechanical Ventilator 04/09/18 00:02 98.4 60 13 115/49 (71) 100 04/08/18 23:08 60 15 35 04/08/18 23:00 60 14 103/44 (63) 100 04/08/18 22:00 60 21 121/50 (73) 100 04/08/18 21:48 60 130/47 04/08/18 21:15 60 15 35 04/08/18 21:00 60 23 130/47 (74) 100 04/08/18 20:00 Mechanical Ventilator 04/08/18 20:00 35 04/08/18 20:00 60 22 104/47 (66) 100 04/08/18 20:00 60 04/08/18 19:30 98.4 04/08/18 19:10 60 12 100 Mechanical Ventilator 35 04/08/18 19:05 60 16 35 04/08/18 19:05 60 16 100 Mechanical Ventilator 35 04/08/18 19:00 60 16 108/40 (62) 100 04/08/18 18:06 60 04/08/18 18:00 61 19 124/52 (76) 99 04/08/18 17:19 60 12 35 04/08/18 17:00 60 22 118/50 (72) 100 04/08/18 16:00 98.7 60 16 98/42 (60) 98 04/08/18 16:00 Mechanical Ventilator 04/08/18 15:30 35 04/08/18 15:30 71 25 35 04/08/18 15:00 71 28 139/52 (81) 99 04/08/18 14:57 67 125/48 04/08/18 14:00 60 27 105/45 (65) 99 04/08/18 13:50 64 25 100 Mechanical Ventilator 35 04/08/18 13:00 62 27 105/41 (62) 99 04/08/18 12:40 35 04/08/18 12:38 66 26 98 Mechanical Ventilator 35 04/08/18 12:34 60 27 35 04/08/18 12:00 98.8 63 27 106/40 (62) 100 04/08/18 12:00 Mechanical Ventilator 04/08/18 11:37 66 04/08/18 11:10 35 04/08/18 11:00 60 18 107/42 (63) 100 04/08/18 10:48 63 32 35 04/08/18 10:35 35 04/08/18 10:35 60 25 35 04/08/18 10:35 99 04/08/18 10:33 60 13 35 04/08/18 10:16 60 Intake and Output 04/08/18 04/09/18 19:00 07:00 Intake Total 860 ml 630 ml Output Total 920 ml 760 ml Balance -60 ml -130 ml Free Water 100 ml IV Total 110 ml Tube Feeding 600 ml 600 ml Other 50 ml 30 ml Output Urine Total 920 ml 760 ml Laboratory Tests Test 04/09/18 03:30 04/09/18 08:42 White Blood Count 8.3 K/UL (4.8-10.8) Red Blood Count 3.58 M/UL (4.20-5.40) L Hemoglobin 10.2 G/DL (12.0-16.0) L Hematocrit 30.8 % (37.0-47.0) L Mean Corpuscular Volume 86 FL (80-99) Mean Corpuscular Hemoglobin 28.6 PG (27.0-31.0) Mean Corpuscular Hemoglobin Concent 33.2 G/DL (32.0-36.0) Red Cell Distribution Width 15.7 % (11.6-14.8) H Platelet Count 192 K/UL (150-450) Mean Platelet Volume 7.7 FL (6.5-10.1) Neutrophils (%) (Auto) 73.6 % (45.0-75.0) Lymphocytes (%) (Auto) 13.2 % (20.0-45.0) L Monocytes (%) (Auto) 8.0 % (1.0-10.0) Eosinophils (%) (Auto) 4.5 % (0.0-3.0) H Basophils (%) (Auto) 0.6 % (0.0-2.0) Sodium Level 141 MMOL/L (136-145) Potassium Level 3.1 MMOL/L (3.5-5.1) L Chloride Level 104 MMOL/L (98-107) Carbon Dioxide Level 30 MMOL/L (21-32) Anion Gap 8 mmol/L (5-15) Blood Urea Nitrogen 23 mg/dL (7-18) H Creatinine 0.6 MG/DL (0.55-1.30) Estimat Glomerular Filtration Rate mL/min (>60) Glucose Level 117 MG/DL (74-106) H Calcium Level 8.1 MG/DL (8.5-10.1) L Phosphorus Level 4.1 MG/DL (2.5-4.9) Magnesium Level 2.0 MG/DL (1.8-2.4) Total Bilirubin 0.3 MG/DL (0.2-1.0) Aspartate Amino Transf (AST/SGOT) 14 U/L (15-37) L Alanine Aminotransferase (ALT/SGPT) 10 U/L (12-78) L Alkaline Phosphatase 49 U/L (46-116) Total Protein 6.0 G/DL (6.4-8.2) L Albumin 2.4 G/DL (3.4-5.0) L Globulin 3.6 g/dL Albumin/Globulin Ratio 0.7 (1.0-2.7) L Arterial Blood pH 7.508 (7.350-7.450) Arterial Blood Partial Pressure CO2 37.6 mmHg (35.0-45.0) Arterial Blood Partial Pressure O2 172.4 mmHg (75.0-100.0) H Arterial Blood HCO3 29.2 mmol/L (22.0-26.0) H Arterial Blood Oxygen Saturation 98.7 % (95-100) Arterial Blood Base Excess 5.9 (-2-2) H Ian Test Positive Objective HEAD AND NECK: Orally intubated with NG tube. LUNGS: Coarse rhonchi. CARDIOVASCULAR: Irregular S1 and S2 with no gallop. ABDOMEN: Soft. EXTREMITIES: 1+ pitting edema. Yohan Milian MD Apr 09, 2018 10:15
--- NOTE | 2018-04-09 10:16 | Cardiac Electrophysiology PN ---
Assessment/Plan Assessment/Plan 1. Atrial flutter with rapid ventricular response. rate controlled. On Cardizem 90 mg every 8 hours, apixaban 5 mg bid and amiodarone 200 mg daily. 2. Status post Medtronic Micra leadless pacemaker implantation [address] [facility]. 3. Respiratory failure to diastolic dysfunction on Vent. EF of 55%. Decrease Lasix to 40 mg IV BID 4. Hypertension, on Lasix and Cardizem. 5. Psychosis and schizophrenia, on Risperdal. DYLAN RN Subjective Subjective In ICU on Vent in Atrial fib with controlled rate and occasionally V paced. Being weaned Objective Last 24 Hour Vital Signs Date Time Temp Pulse Resp B/P (MAP) Pulse Ox O2 Delivery O2 Flow Rate FiO2 04/09/18 08:57 61 30 Mechanical Ventilator 35 04/09/18 08:56 99 04/09/18 08:50 60 35 35 04/09/18 08:00 60 14 119/50 (73) 100 04/09/18 08:00 Mechanical Ventilator 04/09/18 08:00 35 04/09/18 07:00 99.0 60 25 103/59 (74) 97 04/09/18 07:00 60 12 100 Mechanical Ventilator 35 04/09/18 06:52 60 15 35 04/09/18 06:51 60 15 100 Mechanical Ventilator 35 04/09/18 06:07 60 20 104/43 (63) 99 04/09/18 05:37 60 124/61 04/09/18 05:22 61 24 35 04/09/18 05:00 60 20 124/61 (82) 99 04/09/18 04:00 35 04/09/18 04:00 60 04/09/18 04:00 98.0 60 17 131/52 (78) 100 04/09/18 04:00 Mechanical Ventilator 04/09/18 03:15 60 14 35 04/09/18 03:00 60 12 100/53 (69) 99 04/09/18 02:00 60 22 110/51 (70) 99 04/09/18 01:22 60 17 100 Mechanical Ventilator 35 04/09/18 01:12 60 15 35 04/09/18 01:12 60 15 98 Mechanical Ventilator 35 04/09/18 01:00 60 21 112/48 (69) 99 04/09/18 00:07 Mechanical Ventilator 04/09/18 00:02 98.4 60 13 115/49 (71) 100 04/08/18 23:08 60 15 35 04/08/18 23:00 60 14 103/44 (63) 100 04/08/18 22:00 60 21 121/50 (73) 100 04/08/18 21:48 60 130/47 04/08/18 21:15 60 15 35 04/08/18 21:00 60 23 130/47 (74) 100 04/08/18 20:00 Mechanical Ventilator 04/08/18 20:00 35 04/08/18 20:00 60 22 104/47 (66) 100 04/08/18 20:00 60 04/08/18 19:30 98.4 04/08/18 19:10 60 12 100 Mechanical Ventilator 35 04/08/18 19:05 60 16 35 04/08/18 19:05 60 16 100 Mechanical Ventilator 35 04/08/18 19:00 60 16 108/40 (62) 100 04/08/18 18:06 60 04/08/18 18:00 61 19 124/52 (76) 99 04/08/18 17:19 60 12 35 04/08/18 17:00 60 22 118/50 (72) 100 04/08/18 16:00 98.7 60 16 98/42 (60) 98 04/08/18 16:00 Mechanical Ventilator 04/08/18 15:30 35 04/08/18 15:30 71 25 35 04/08/18 15:00 71 28 139/52 (81) 99 04/08/18 14:57 67 125/48 04/08/18 14:00 60 27 105/45 (65) 99 04/08/18 13:50 64 25 100 Mechanical Ventilator 35 04/08/18 13:00 62 27 105/41 (62) 99 04/08/18 12:40 35 04/08/18 12:38 66 26 98 Mechanical Ventilator 35 04/08/18 12:34 60 27 35 04/08/18 12:00 98.8 63 27 106/40 (62) 100 04/08/18 12:00 Mechanical Ventilator 04/08/18 11:37 66 04/08/18 11:10 35 04/08/18 11:00 60 18 107/42 (63) 100 04/08/18 10:48 63 32 35 11/7/18 10:35 35 04/08/18 10:35 60 25 35 04/08/18 10:35 99 04/08/18 10:33 60 13 35 04/08/18 10:16 60 Intake and Output 04/08/18 04/09/18 19:00 07:00 Intake Total 860 ml 630 ml Output Total 920 ml 760 ml Balance -60 ml -130 ml Free Water 100 ml IV Total 110 ml Tube Feeding 600 ml 600 ml Other 50 ml 30 ml Output Urine Total 920 ml 760 ml Laboratory Tests Test 04/09/18 03:30 04/09/18 08:42 White Blood Count 8.3 K/UL (4.8-10.8) Red Blood Count 3.58 M/UL (4.20-5.40) L Hemoglobin 10.2 G/DL (12.0-16.0) L Hematocrit 30.8 % (37.0-47.0) L Mean Corpuscular Volume 86 FL (80-99) Mean Corpuscular Hemoglobin 28.6 PG (27.0-31.0) Mean Corpuscular Hemoglobin Concent 33.2 G/DL (32.0-36.0) Red Cell Distribution Width 15.7 % (11.6-14.8) H Platelet Count 192 K/UL (150-450) Mean Platelet Volume 7.7 FL (6.5-10.1) Neutrophils (%) (Auto) 73.6 % (45.0-75.0) Lymphocytes (%) (Auto) 13.2 % (20.0-45.0) L Monocytes (%) (Auto) 8.0 % (1.0-10.0) Eosinophils (%) (Auto) 4.5 % (0.0-3.0) H Basophils (%) (Auto) 0.6 % (0.0-2.0) Sodium Level 141 MMOL/L (136-145) Potassium Level 3.1 MMOL/L (3.5-5.1) L Chloride Level 104 MMOL/L (98-107) Carbon Dioxide Level 30 MMOL/L (21-32) Anion Gap 8 mmol/L (5-15) Blood Urea Nitrogen 23 mg/dL (7-18) H Creatinine 0.6 MG/DL (0.55-1.30) Estimat Glomerular Filtration Rate mL/min (>60) Glucose Level 117 MG/DL (74-106) H Calcium Level 8.1 MG/DL (8.5-10.1) L Phosphorus Level 4.1 MG/DL (2.5-4.9) Magnesium Level 2.0 MG/DL (1.8-2.4) Total Bilirubin 0.3 MG/DL (0.2-1.0) Aspartate Amino Transf (AST/SGOT) 14 U/L (15-37) L Alanine Aminotransferase (ALT/SGPT) 10 U/L (12-78) L Alkaline Phosphatase 49 U/L (46-116) Total Protein 6.0 G/DL (6.4-8.2) L Albumin 2.4 G/DL (3.4-5.0) L Globulin 3.6 g/dL Albumin/Globulin Ratio 0.7 (1.0-2.7) L Arterial Blood pH 7.508 (7.350-7.450) Arterial Blood Partial Pressure CO2 37.6 mmHg (35.0-45.0) Arterial Blood Partial Pressure O2 172.4 mmHg (75.0-100.0) H Arterial Blood HCO3 29.2 mmol/L (22.0-26.0) H Arterial Blood Oxygen Saturation 98.7 % (95-100) Arterial Blood Base Excess 5.9 (-2-2) H Ian Test Positive Objective HEAD AND NECK: Orally intubated with NG tube. LUNGS: Coarse rhonchi. CARDIOVASCULAR: Irregular S1 and S2 with no gallop. ABDOMEN: Soft. EXTREMITIES: 1+ pitting edema. Yohan Milian MD Apr 09, 2018 10:16
[2018-04-09] MEDS: cefTRIAXone 2gm/D5W 110ml IVPB SCH ×2 (10:46)
[2018-04-09] MEDS ORDERED: Tubing IV Secondary IV ONE ×2 (14:21→14:24)
[2018-04-09] MEDS ORDERED: NS 500ML ONE (14:21)
[2018-04-09] MEDS ORDERED: NS 275ml ONE (14:24)
--- NOTE | 2018-04-09 14:58 | Infectious Diseases Prog Note ---
Assessment/Plan Assessment/Plan ASSESSMENT: The patient is a 77-year-old female with: febrile, low grade, SP Normal white blood cells. UTI Proteus mirabilis. Probable pneumonia, ? atypical. Scx: No sig growth Flu screen negative Urine Legionella antigen / Ab : Neg Atrial flutter CHF COPD CAD Hypertension Seizure disorder Schizophrenia Depression History of intraventricular pacemaker implantation PLAN: continue on Rocephin day # 5 / 7 and Doxy d# 4/5 11/6 Sp IV vancomycin d # 3 Monitor CBC Monitor BMP Monitor chest x-ray Subjective Allergies: Coded Allergies: PIPERACILLIN (Unverified Allergy, Unknown, 03/10/18) TAZOBACTAM (Unverified Allergy, Unknown, 03/10/18) Subjective pt is in ICU afebrile Objective Vital Signs Last 24 Hour Vital Signs Date Time Temp Pulse Resp B/P (MAP) Pulse Ox O2 Delivery O2 Flow Rate FiO2 04/09/18 14:50 61 16 35 04/09/18 14:00 65 18 128/84 (99) 100 04/09/18 13:50 35 04/09/18 13:30 35 04/09/18 13:28 62 21 100 Mechanical Ventilator 35 04/09/18 13:16 64 122/45 04/09/18 13:06 64 33 100 Mechanical Ventilator 35 04/09/18 13:05 64 28 35 04/09/18 13:00 63 27 122/45 (70) 100 04/09/18 12:00 Mechanical Ventilator 04/09/18 12:00 35 04/09/18 12:00 60 56 136/45 (75) 99 04/09/18 12:00 61 04/09/18 11:00 64 25 136/45 (75) 99 04/09/18 10:52 65 32 35 04/09/18 10:00 66 26 146/59 (88) 99 04/09/18 09:00 70 33 133/54 (80) 99 04/09/18 08:58 35 04/09/18 08:57 61 30 Mechanical Ventilator 35 04/09/18 08:56 99 04/09/18 08:50 60 35 35 04/09/18 08:00 60 14 119/50 (73) 100 04/09/18 08:00 Mechanical Ventilator 04/09/18 08:00 69 04/09/18 08:00 35 04/09/18 07:00 99.0 60 25 103/59 (74) 97 04/09/18 07:00 60 12 100 Mechanical Ventilator 35 04/09/18 06:52 60 15 35 04/09/18 06:51 60 15 100 Mechanical Ventilator 35 04/09/18 06:07 60 20 104/43 (63) 99 04/09/18 05:37 60 124/61 04/09/18 05:22 61 24 35 04/09/18 05:00 60 20 124/61 (82) 99 04/09/18 04:00 35 04/09/18 04:00 60 04/09/18 04:00 98.0 60 17 131/52 (78) 100 04/09/18 04:00 Mechanical Ventilator 04/09/18 03:15 60 14 35 04/09/18 03:00 60 12 100/53 (69) 99 04/09/18 02:00 60 22 110/51 (70) 99 04/09/18 01:22 60 17 100 Mechanical Ventilator 35 04/09/18 01:12 60 15 35 04/09/18 01:12 60 15 98 Mechanical Ventilator 35 04/09/18 01:00 60 21 112/48 (69) 99 04/09/18 00:07 Mechanical Ventilator 04/09/18 00:02 98.4 60 13 115/49 (71) 100 04/08/18 23:08 60 15 35 04/08/18 23:00 60 14 103/44 (63) 100 04/08/18 22:00 60 21 121/50 (73) 100 04/08/18 21:48 60 130/47 04/08/18 21:15 60 15 35 04/08/18 21:00 60 23 130/47 (74) 100 04/08/18 20:00 Mechanical Ventilator 04/08/18 20:00 35 04/08/18 20:00 60 22 104/47 (66) 100 04/08/18 20:00 60 04/08/18 19:30 98.4 04/08/18 19:10 60 12 100 Mechanical Ventilator 35 04/08/18 19:05 60 16 35 04/08/18 19:05 60 16 100 Mechanical Ventilator 35 04/08/18 19:00 60 16 108/40 (62) 100 04/08/18 18:06 60 04/08/18 18:00 61 19 124/52 (76) 99 04/08/18 17:19 60 12 35 04/08/18 17:00 60 22 118/50 (72) 100 04/08/18 16:00 98.7 60 16 98/42 (60) 98 04/08/18 16:00 Mechanical Ventilator 04/08/18 15:30 35 04/08/18 15:30 71 25 35 04/08/18 15:00 71 28 139/52 (81) 99 04/08/18 14:57 67 125/48 Height (Feet): 5 Height (Inches): 7.00 Weight (Pounds): 176 HEENT: anicteric Respiratory/Chest: normal breath sounds Cardiovascular: regularly irregular Abdomen: no organomegaly Laboratory Tests Test 04/09/18 03:30 04/09/18 08:42 White Blood Count 8.3 K/UL (4.8-10.8) Red Blood Count 3.58 M/UL (4.20-5.40) L Hemoglobin 10.2 G/DL (12.0-16.0) L Hematocrit 30.8 % (37.0-47.0) L Mean Corpuscular Volume 86 FL (80-99) Mean Corpuscular Hemoglobin 28.6 PG (27.0-31.0) Mean Corpuscular Hemoglobin Concent 33.2 G/DL (32.0-36.0) Red Cell Distribution Width 15.7 % (11.6-14.8) H Platelet Count 192 K/UL (150-450) Mean Platelet Volume 7.7 FL (6.5-10.1) Neutrophils (%) (Auto) 73.6 % (45.0-75.0) Lymphocytes (%) (Auto) 13.2 % (20.0-45.0) L Monocytes (%) (Auto) 8.0 % (1.0-10.0) Eosinophils (%) (Auto) 4.5 % (0.0-3.0) H Basophils (%) (Auto) 0.6 % (0.0-2.0) Sodium Level 141 MMOL/L (136-145) Potassium Level 3.1 MMOL/L (3.5-5.1) L Chloride Level 104 MMOL/L (98-107) Carbon Dioxide Level 30 MMOL/L (21-32) Anion Gap 8 mmol/L (5-15) Blood Urea Nitrogen 23 mg/dL (7-18) H Creatinine 0.6 MG/DL (0.55-1.30) Estimat Glomerular Filtration Rate mL/min (>60) Glucose Level 117 MG/DL (74-106) H Calcium Level 8.1 MG/DL (8.5-10.1) L Phosphorus Level 4.1 MG/DL (2.5-4.9) Magnesium Level 2.0 MG/DL (1.8-2.4) Total Bilirubin 0.3 MG/DL (0.2-1.0) Aspartate Amino Transf (AST/SGOT) 14 U/L (15-37) L Alanine Aminotransferase (ALT/SGPT) 10 U/L (12-78) L Alkaline Phosphatase 49 U/L (46-116) Total Protein 6.0 G/DL (6.4-8.2) L Albumin 2.4 G/DL (3.4-5.0) L Globulin 3.6 g/dL Albumin/Globulin Ratio 0.7 (1.0-2.7) L Arterial Blood pH 7.508 (7.350-7.450) Arterial Blood Partial Pressure CO2 37.6 mmHg (35.0-45.0) Arterial Blood Partial Pressure O2 172.4 mmHg (75.0-100.0) H Arterial Blood HCO3 29.2 mmol/L (22.0-26.0) H Arterial Blood Oxygen Saturation 98.7 % (95-100) Arterial Blood Base Excess 5.9 (-2-2) H Ian Test Positive Current Medications Medications (Trade) Dose Ordered Sig/Ibrahima Route PRN Reason Start Time Stop Time Status Last Admin Dose Admin Acetaminophen (Tylenol) 650 mg Q4H PRN ORAL Fever (temp >100.3) 04/04/18 08:45 05/04/18 08:44 04/07/18 21:04 Amiodarone HCl (Cordarone) 200 mg DAILY NG 04/05/18 09:00 05/05/18 08:59 04/09/18 08:57 Apixaban (Eliquis) 5 mg Q12HR ORAL 04/04/18 21:00 05/04/18 20:59 04/09/18 08:57 Ceftriaxone Sodium 2 gm/ Dextrose 110 ml @ 220 mls/hr Q24H IVPB 04/06/18 11:00 04/13/18 10:59 04/09/18 10:46 Dextrose (Dextrose 50%) 25 ml Q30M PRN IV Hypoglycemia 04/04/18 08:45 05/04/18 08:44 Dextrose (Dextrose 50%) 50 ml Q30M PRN IV Hypoglycemia 04/04/18 10:30 05/04/18 10:29 Diltiazem HCl (Cardizem) 90 mg EVERY 8 HOURS NG 04/04/18 22:00 05/04/18 21:59 04/09/18 13:16 Doxycycline Monohydrate (Vibramycin) 100 mg EVERY 12 HOURS ORAL 04/06/18 13:00 04/13/18 12:59 04/09/18 08:58 Furosemide (Lasix) 40 mg EVERY 12 HOURS IV 04/08/18 21:00 05/04/18 21:59 04/09/18 08:56 Haloperidol Lactate (Haldol) 5 mg Q6H PRN IM Agitation 04/06/18 12:46 05/06/18 12:45 Ipratropium [place] (Atrovent) 500 mcg Q6HRT HHN 04/04/18 19:00 04/09/18 18:59 04/09/18 13:05 Lorazepam (Ativan 2mg/ml 1ml) 2 mg Q4H PRN IV For Anxiety 04/04/18 08:45 04/11/18 08:44 04/09/18 00:00 Morphine Sulfate (Morphine Sulfate) 4 mg Q4H PRN IVP For Pain 04/04/18 08:45 04/11/18 08:44 Ondansetron HCl (Zofran) 4 mg Q6H PRN IVP Nausea & Vomiting 04/04/18 08:45 05/04/18 08:44 04/05/18 01:34 Pantoprazole (Protonix) 40 mg DAILY IV 04/04/18 10:15 05/04/18 10:14 04/09/18 08:56 Polyethylene Glycol (Miralax) 17 gm DAILYPRN PRN ORAL Constipation 04/04/18 08:45 05/04/18 08:44 04/08/18 01:42 Temazepam (Restoril) 15 mg HSPRN PRN ORAL Insomnia 04/04/18 08:45 04/11/18 08:44 04/06/18 20:26 Juan Moeller MD Apr 09, 2018 14:58
--- NOTE | 2018-04-09 19:06 | Internal Med Progress Note ---
Subjective Date of Service: Apr 09, 2018 Physician Name Dutta,Juan Attending Physician Yonathan Mendoza MD Current Medications Medications (Trade) Dose Ordered Sig/Ibrahima Route PRN Reason Start Time Stop Time Status Last Admin Dose Admin Acetaminophen (Tylenol) 650 mg Q4H PRN ORAL Fever (temp >100.3) 04/04/18 08:45 05/04/18 08:44 04/07/18 21:04 Amiodarone HCl (Cordarone) 200 mg DAILY NG 04/05/18 09:00 05/05/18 08:59 04/09/18 08:57 Apixaban (Eliquis) 5 mg Q12HR ORAL 04/04/18 21:00 05/04/18 20:59 04/09/18 08:57 Ceftriaxone Sodium 2 gm/ Dextrose 110 ml @ 220 mls/hr Q24H IVPB 04/06/18 11:00 04/13/18 10:59 04/09/18 10:46 Dextrose (Dextrose 50%) 25 ml Q30M PRN IV Hypoglycemia 04/04/18 08:45 05/04/18 08:44 Dextrose (Dextrose 50%) 50 ml Q30M PRN IV Hypoglycemia 04/04/18 10:30 05/04/18 10:29 Diltiazem HCl (Cardizem) 90 mg EVERY 8 HOURS NG 04/04/18 22:00 05/04/18 21:59 04/09/18 13:16 Doxycycline Monohydrate (Vibramycin) 100 mg EVERY 12 HOURS ORAL 04/06/18 13:00 04/13/18 12:59 04/09/18 08:58 Furosemide (Lasix) 40 mg EVERY 12 HOURS IV 04/08/18 21:00 05/04/18 21:59 04/09/18 08:56 Haloperidol Lactate (Haldol) 5 mg Q6H PRN IM Agitation 04/06/18 12:46 05/06/18 12:45 Ipratropium [place] (Atrovent) 500 mcg Q6HRT HHN 04/10/18 01:00 04/15/18 00:59 UNV Lorazepam (Ativan 2mg/ml 1ml) 2 mg Q4H PRN IV For Anxiety 04/04/18 08:45 04/11/18 08:44 04/09/18 00:00 Morphine Sulfate (Morphine Sulfate) 4 mg Q4H PRN IVP For Pain 04/04/18 08:45 04/11/18 08:44 Ondansetron HCl (Zofran) 4 mg Q6H PRN IVP Nausea & Vomiting 04/04/18 08:45 05/04/18 08:44 04/05/18 01:34 Pantoprazole (Protonix) 40 mg DAILY IV 04/04/18 10:15 05/04/18 10:14 04/09/18 08:56 Polyethylene Glycol (Miralax) 17 gm DAILYPRN PRN ORAL Constipation 04/04/18 08:45 05/04/18 08:44 04/08/18 01:42 Temazepam (Restoril) 15 mg HSPRN PRN ORAL Insomnia 04/04/18 08:45 04/11/18 08:44 04/06/18 20:26 Allergies: Coded Allergies: PIPERACILLIN (Unverified Allergy, Unknown, 03/10/18) TAZOBACTAM (Unverified Allergy, Unknown, 03/10/18) ROS Limited/Unobtainable: Yes Subjective 77 YO F admitted with respiratory failure and atrial flutter wit rapid ventricular rate. Intubated and sedated. Cover for - Dr Mendoza. More alert today. On weaning protocol. ICU Objective Last Vital Signs Date Time Temp Pulse Resp B/P (MAP) Pulse Ox O2 Delivery O2 Flow Rate FiO2 04/09/18 19:00 60 16 114/47 (69) 100 04/09/18 17:11 35 04/09/18 16:30 Mechanical Ventilator 04/09/18 16:00 98.2 04/04/18 09:00 15.0 Laboratory Tests Test 04/09/18 03:30 04/09/18 08:42 White Blood Count 8.3 K/UL (4.8-10.8) Red Blood Count 3.58 M/UL (4.20-5.40) L Hemoglobin 10.2 G/DL (12.0-16.0) L Hematocrit 30.8 % (37.0-47.0) L Mean Corpuscular Volume 86 FL (80-99) Mean Corpuscular Hemoglobin 28.6 PG (27.0-31.0) Mean Corpuscular Hemoglobin Concent 33.2 G/DL (32.0-36.0) Red Cell Distribution Width 15.7 % (11.6-14.8) H Platelet Count 192 K/UL (150-450) Mean Platelet Volume 7.7 FL (6.5-10.1) Neutrophils (%) (Auto) 73.6 % (45.0-75.0) Lymphocytes (%) (Auto) 13.2 % (20.0-45.0) L Monocytes (%) (Auto) 8.0 % (1.0-10.0) Eosinophils (%) (Auto) 4.5 % (0.0-3.0) H Basophils (%) (Auto) 0.6 % (0.0-2.0) Sodium Level 141 MMOL/L (136-145) Potassium Level 3.1 MMOL/L (3.5-5.1) L Chloride Level 104 MMOL/L (98-107) Carbon Dioxide Level 30 MMOL/L (21-32) Anion Gap 8 mmol/L (5-15) Blood Urea Nitrogen 23 mg/dL (7-18) H Creatinine 0.6 MG/DL (0.55-1.30) Estimat Glomerular Filtration Rate mL/min (>60) Glucose Level 117 MG/DL (74-106) H Calcium Level 8.1 MG/DL (8.5-10.1) L Phosphorus Level 4.1 MG/DL (2.5-4.9) Magnesium Level 2.0 MG/DL (1.8-2.4) Total Bilirubin 0.3 MG/DL (0.2-1.0) Aspartate Amino Transf (AST/SGOT) 14 U/L (15-37) L Alanine Aminotransferase (ALT/SGPT) 10 U/L (12-78) L Alkaline Phosphatase 49 U/L (46-116) Total Protein 6.0 G/DL (6.4-8.2) L Albumin 2.4 G/DL (3.4-5.0) L Globulin 3.6 g/dL Albumin/Globulin Ratio 0.7 (1.0-2.7) L Arterial Blood pH 7.508 (7.350-7.450) Arterial Blood Partial Pressure CO2 37.6 mmHg (35.0-45.0) Arterial Blood Partial Pressure O2 172.4 mmHg (75.0-100.0) H Arterial Blood HCO3 29.2 mmol/L (22.0-26.0) H Arterial Blood Oxygen Saturation 98.7 % (95-100) Arterial Blood Base Excess 5.9 (-2-2) H Ian Test Positive Intake and Output 04/08/18 04/09/18 19:00 07:00 Intake Total 860 ml 630 ml Output Total 920 ml 760 ml Balance -60 ml -130 ml Free Water 100 ml IV Total 110 ml Tube Feeding 600 ml 600 ml Other 50 ml 30 ml Output Urine Total 920 ml 760 ml Objective General Appearance: WD/WN, no apparent distress EENT: PERRL/EOMI, normal ENT inspection Neck: non-tender, normal alignment, supple Cardiovascular: normal peripheral pulses, regular rhythm, no gallop/murmur, no JVD, tachycardia Respiratory/Chest: Mech vent; chest wall non-tender, respiratory distress, crackles/rales, rhonchi - bilaterally, expiratory wheezing Abdomen: normal bowel sounds, non tender, soft, no organomegaly, no mass Extremities: normal range of motion, non-tender Skin: normal pigmentation, warm/dry Assessment/Plan Problem List: (1) Pneumonia Assessment & Plan: Continue vanco and ceftriaxone (2) Atrial fibrillation with RVR Assessment & Plan: Cntinue amiodarone-See cardiology note. (3) CHF (congestive heart failure) (4) COPD (chronic obstructive pulmonary disease) Assessment & Plan: see pulmonary note. (5) Pacemaker (6) CAD (coronary artery disease) (7) Seizure disorder (8) Bipolar depression (9) Respiratory failure, acute Assessment & Plan: Continue vent per pulmonary (10) UTI (lower urinary tract infection) Assessment & Plan: Proteus. Continue ceftriaxone per ID Status: not improved Juan Dutta MD Apr 09, 2018 19:06
--- NOTE | 2018-04-09 19:45 | Progress Note ---
DATE: 04/09/2018 SUBJECTIVE: The patient is still lethargic. Has waxing and waning consciousness and gets anxious and agitated. Has medication on board. No violent behavior. MENTAL STATUS EXAMINATION: The patient is confused and lethargic. Mood is anxious to neutral. Affect is flat. There is paucity of thought content. Cognition is impaired. ASSESSMENT: Encephalopathy due to toxic and metabolic disorder. PLAN: We will continue the current medication and care. We will follow and readjust the medications accordingly. Luiz Morrison M.D. DR: KRISHAN JOB#: [id number] CC:
[2018-04-10] VITALS (24 sets, daily range): BP systolic 96–134; BP diastolic 42–79
[2018-04-10] MEDS: Ipratropium 0.02% Inh Soln 2.5ml UD HHN SCH ×4 (01:09→19:00)
[2018-04-10] MEDS: LORazepam Inj 2mg/ml 1ml IV PRN ×2 (02:21→20:23)
[2018-04-10 05:05] LABS: BASOPHILS % (AUTO) 0.9 % (0.0-2.0); EOSINOPHILS % (AUTO) 3.4 % (0.0-3.0); HEMOGLOBIN 9.7 G/DL (12.0-16.0); LYMPHOCYTES % (AUTO) 11.6 % (20.0-45.0); MEAN CORPUSCULAR VOLUME 86 FL (80-99); NEUTROPHILS % (AUTO) 77.1 % (45.0-75.0); PLATELET COUNT 178 K/UL (150-450); RED BLOOD COUNT 3.49 M/UL (4.20-5.40); WHITE BLOOD COUNT 7.7 K/UL (4.8-10.8)
[2018-04-10] MEDS: dilTIAZem HCl 90mg tab NG SCH ×3 (05:24→22:09)
[2018-04-10 05:42] LABS: ALANINE AMINOTRANSFERASE 10 U/L (12-78); ALBUMIN 2.5 G/DL (3.4-5.0); ALBUMIN/GLOBULIN RATIO 0.7 (1.0-2.7); ALKALINE PHOSPHATASE 46 U/L (46-116); ANION GAP 6 mmol/L (5-15); ASPARTATE AMINO TRANSFERASE 13 U/L (15-37); BILIRUBIN,TOTAL 0.3 MG/DL (0.2-1.0); BLOOD UREA NITROGEN 22 mg/dL (7-18); CALCIUM 8.1 MG/DL (8.5-10.1); CARBON DIOXIDE 31 MMOL/L (21-32); CHLORIDE 106 MMOL/L (98-107); CREATININE 0.6 MG/DL (0.55-1.30); POTASSIUM 3.1 MMOL/L (3.5-5.1); SODIUM 142 MMOL/L (136-145)
[2018-04-10] MEDS: Amiodarone 200mg tab NG SCH (08:46)
[2018-04-10] MEDS: Eliquis 2.5mg tablet ORAL SCH ×2 (08:46→20:19)
[2018-04-10] MEDS: Pantoprazole Inj IV SCH (08:47)
--- NOTE | 2018-04-10 10:22 | Pulmonolgy Critical Care Note ---
Critical Care - Asmt/Plan Problems: (1) Respiratory failure, acute (2) Acute encephalopathy (3) Sepsis (4) Atrial fibrillation with RVR (5) Acute diastolic CHF (congestive heart failure) (6) COPD (chronic obstructive pulmonary disease) (7) Bipolar depression (8) Dementia Respiratory: monitor respiratory rate, adjust FIO2, CXR, other - extubate Cardiac: continue to monitor HR/BP Renal: F/U I&O Infectious Disease: check cultures Gastrointestinal: continue feedings/current rate Endocrine: monitor blood sugar, check TSH Hematologic: monitor H/H, transfuse if hgb<8.5 Neurologic: PRN Ativan, PRN Morphine, keep patient comfortable Prophylaxis: Protonix Notes Reviewed: cardio, renal Discussed with: nurses, consultants, case resolution specialistfactory manager - Objective Last 24 Hour Vital Signs Date Time Temp Pulse Resp B/P (MAP) Pulse Ox O2 Delivery O2 Flow Rate FiO2 04/10/18 10:00 60 22 123/57 (79) 99 04/10/18 09:47 99 04/10/18 09:00 62 22 111/62 (78) 100 04/10/18 08:37 60 32 04/10/18 08:00 60 04/10/18 08:00 97.9 60 21 125/60 (81) 100 04/10/18 08:00 35 04/10/18 08:00 Mechanical Ventilator 04/10/18 07:03 61 12 100 Mechanical Ventilator 35 04/10/18 07:00 60 22 123/52 (75) 100 04/10/18 06:57 60 13 100 Mechanical Ventilator 35 04/10/18 06:57 60 17 35 04/10/18 06:02 60 22 104/43 (63) 100 04/10/18 05:24 61 107/47 04/10/18 05:14 60 14 35 04/10/18 05:00 60 15 106/42 (63) 100 04/10/18 04:00 60 04/10/18 04:00 97.9 60 21 107/47 (67) 100 04/10/18 04:00 35 04/10/18 04:00 Mechanical Ventilator 04/10/18 03:15 60 13 35 04/10/18 03:00 60 21 96/46 (63) 99 04/10/18 02:00 60 19 134/50 (78) 100 04/10/18 01:19 64 21 100 Mechanical Ventilator 35 04/10/18 01:09 60 24 35 04/10/18 01:09 60 24 98 Mechanical Ventilator 35 04/10/18 01:00 60 24 117/51 (73) 100 04/10/18 00:00 Mechanical Ventilator 04/10/18 00:00 35 04/10/18 00:00 98.0 60 18 99/54 (69) 100 04/10/18 00:00 60 04/09/18 23:00 60 12 101/52 (68) 100 04/09/18 22:51 60 12 35 04/09/18 22:00 60 21 111/48 (69) 100 04/09/18 21:59 60 138/50 04/09/18 21:05 60 12 35 04/09/18 21:00 60 22 138/50 (79) 100 04/09/18 20:00 35 04/09/18 20:00 60 04/09/18 20:00 Mechanical Ventilator 04/09/18 20:00 97.9 60 14 119/50 (73) 100 04/09/18 19:00 60 16 114/47 (69) 100 04/09/18 19:00 60 12 35 04/09/18 19:00 Mechanical Ventilator 35 04/09/18 19:00 Mechanical Ventilator 35 04/09/18 18:00 60 22 142/53 (82) 100 04/09/18 17:11 60 14 35 04/09/18 17:00 60 17 131/68 (89) 100 04/09/18 16:30 Mechanical Ventilator 04/09/18 16:00 98.2 60 18 97/60 (72) 100 04/09/18 16:00 Mechanical Ventilator 04/09/18 16:00 61 04/09/18 15:00 61 18 114/42 (66) 99 04/09/18 15:00 60 25 114/44 (67) 100 04/09/18 14:50 61 16 35 04/09/18 14:00 65 18 128/84 (99) 100 04/09/18 13:50 35 04/09/18 13:30 35 04/09/18 13:28 62 21 100 Mechanical Ventilator 35 04/09/18 13:16 64 122/45 04/09/18 13:06 64 33 100 Mechanical Ventilator 35 04/09/18 13:05 64 28 35 04/09/18 13:00 63 27 122/45 (70) 100 04/09/18 12:00 Mechanical Ventilator 04/09/18 12:00 35 04/09/18 12:00 60 56 136/45 (75) 99 04/09/18 12:00 61 04/09/18 12:00 98.9 04/09/18 11:00 64 25 136/45 (75) 99 04/09/18 10:52 65 32 35 Status: awake Condition: critical Neck: full ROM Heart: HR/BP stable Abdomen: soft Extremities: no C/C/E Decubiti: location Critical Care - Subjective ROS Limited/Unobtainable: Yes Condition: critical EKG Rhythm: Sinus Rhythm FI02: 35 Vent Support Breath Rate: 12 Vent Support Mode: CPAP Vent Tidal Volume: 400 Sputum Amount: Small PEEP: 0.0 PIP: 9 Tube Feeding Amount: 50 I&O: Intake and Output 04/09/18 04/10/18 19:00 07:00 Intake Total 1010 ml 600 ml Output Total 1060 ml 980 ml Balance -50 ml -380 ml IV Total 510 ml Tube Feeding 400 ml 600 ml Other 100 ml Output Urine Total 1060 ml 980 ml # Bowel Movements 3 3 CXR: ET in good position, ET-Tube: 7.5 ET Position: 23 Labs: Laboratory Tests Test 04/10/18 04:00 04/10/18 09:50 White Blood Count 7.7 K/UL (4.8-10.8) Red Blood Count 3.49 M/UL (4.20-5.40) L Hemoglobin 9.7 G/DL (12.0-16.0) L Hematocrit 30.0 % (37.0-47.0) L Mean Corpuscular Volume 86 FL (80-99) Mean Corpuscular Hemoglobin 28.0 PG (27.0-31.0) Mean Corpuscular Hemoglobin Concent 32.5 G/DL (32.0-36.0) Red Cell Distribution Width 16.0 % (11.6-14.8) H Platelet Count 178 K/UL (150-450) Mean Platelet Volume 8.1 FL (6.5-10.1) Neutrophils (%) (Auto) 77.1 % (45.0-75.0) H Lymphocytes (%) (Auto) 11.6 % (20.0-45.0) L Monocytes (%) (Auto) 7.0 % (1.0-10.0) Eosinophils (%) (Auto) 3.4 % (0.0-3.0) H Basophils (%) (Auto) 0.9 % (0.0-2.0) Sodium Level 142 MMOL/L (136-145) Potassium Level 3.1 MMOL/L (3.5-5.1) L Chloride Level 106 MMOL/L (98-107) Carbon Dioxide Level 31 MMOL/L (21-32) Anion Gap 6 mmol/L (5-15) Blood Urea Nitrogen 22 mg/dL (7-18) H Creatinine 0.6 MG/DL (0.55-1.30) Estimat Glomerular Filtration Rate mL/min (>60) Glucose Level 130 MG/DL (74-106) H Calcium Level 8.1 MG/DL (8.5-10.1) L Total Bilirubin 0.3 MG/DL (0.2-1.0) Aspartate Amino Transf (AST/SGOT) 13 U/L (15-37) L Alanine Aminotransferase (ALT/SGPT) 10 U/L (12-78) L Alkaline Phosphatase 46 U/L (46-116) Pro-B-Type Natriuretic Peptide 2210 pg/mL (0-125) H Total Protein 5.9 G/DL (6.4-8.2) L Albumin 2.5 G/DL (3.4-5.0) L Globulin 3.4 g/dL Albumin/Globulin Ratio 0.7 (1.0-2.7) L Arterial Blood pH 7.399 (7.350-7.450) Arterial Blood Partial Pressure CO2 50.3 mmHg (35.0-45.0) H Arterial Blood Partial Pressure O2 90.8 mmHg (75.0-100.0) Arterial Blood HCO3 30.4 mmol/L (22.0-26.0) H Arterial Blood Oxygen Saturation 96.2 % (95-100) Arterial Blood Base Excess 4.7 (-2-2) H Ian Test Positive Mendel Sierra MD Apr 10, 2018 10:22
[2018-04-10] MEDS: cefTRIAXone 2gm/D5W 110ml IVPB SCH ×2 (10:43)
--- NOTE | 2018-04-10 11:48 | Cardiac Electrophysiology PN ---
Assessment/Plan Assessment/Plan 1. Atrial flutter with rapid ventricular response. Rate controlled. On Cardizem 90 mg every 8 hours, apixaban 5 mg bid and amiodarone 200 mg daily. No NG tube now. Will reevaluate swallow eval or reinsert NG tube. 2. Status post Medtronic Micra leadless pacemaker implantation in 2016 at [facility]. 3. Respiratory failure to diastolic dysfunction on Vent. EF of 55%. On Lasix 40 mg IV BID. Extubated today 4. Hypertension, on Lasix and Cardizem. 5. Psychosis and schizophrenia, on Risperdal. DYLAN RN Subjective Subjective In ICU in Atrial fib with controlled rate and occasionally V paced. Was just extubated. Objective Last 24 Hour Vital Signs Date Time Temp Pulse Resp B/P (MAP) Pulse Ox O2 Delivery O2 Flow Rate FiO2 04/10/18 11:07 60 29 100 Facial 35 04/10/18 11:06 Bi-pap 35 04/10/18 11:00 97.6 60 21 120/51 (74) 100 04/10/18 10:44 35 04/10/18 10:00 60 22 123/57 (79) 99 04/10/18 09:47 99 04/10/18 09:00 62 22 111/62 (78) 100 04/10/18 08:37 60 32 04/10/18 08:00 60 04/10/18 08:00 97.9 60 21 125/60 (81) 100 04/10/18 08:00 35 04/10/18 08:00 Mechanical Ventilator 04/10/18 07:03 61 12 100 Mechanical Ventilator 35 04/10/18 07:00 60 22 123/52 (75) 100 04/10/18 06:57 60 13 100 Mechanical Ventilator 35 04/10/18 06:57 60 17 35 04/10/18 06:02 60 22 104/43 (63) 100 04/10/18 05:24 61 107/47 04/10/18 05:14 60 14 35 04/10/18 05:00 60 15 106/42 (63) 100 04/10/18 04:00 60 04/10/18 04:00 97.9 60 21 107/47 (67) 100 04/10/18 04:00 35 04/10/18 04:00 Mechanical Ventilator 11/9/18 03:15 60 13 35 04/10/18 03:00 60 21 96/46 (63) 99 04/10/18 02:00 60 19 134/50 (78) 100 04/10/18 01:19 64 21 100 Mechanical Ventilator 35 04/10/18 01:09 60 24 35 04/10/18 01:09 60 24 98 Mechanical Ventilator 35 04/10/18 01:00 60 24 117/51 (73) 100 04/10/18 00:00 Mechanical Ventilator 04/10/18 00:00 35 04/10/18 00:00 98.0 60 18 99/54 (69) 100 04/10/18 00:00 60 04/09/18 23:00 60 12 101/52 (68) 100 04/09/18 22:51 60 12 35 04/09/18 22:00 60 21 111/48 (69) 100 04/09/18 21:59 60 138/50 04/09/18 21:05 60 12 35 04/09/18 21:00 60 22 138/50 (79) 100 04/09/18 20:00 35 04/09/18 20:00 60 04/09/18 20:00 Mechanical Ventilator 04/09/18 20:00 97.9 60 14 119/50 (73) 100 04/09/18 19:00 60 16 114/47 (69) 100 04/09/18 19:00 60 12 35 04/09/18 19:00 Mechanical Ventilator 35 04/09/18 19:00 Mechanical Ventilator 35 04/09/18 18:00 60 22 142/53 (82) 100 04/09/18 17:11 60 14 35 04/09/18 17:00 60 17 131/68 (89) 100 04/09/18 16:30 Mechanical Ventilator 04/09/18 16:00 98.2 60 18 97/60 (72) 100 04/09/18 16:00 Mechanical Ventilator 04/09/18 16:00 61 04/09/18 15:00 61 18 114/42 (66) 99 04/09/18 15:00 60 25 114/44 (67) 100 04/09/18 14:50 61 16 35 04/09/18 14:00 65 18 128/84 (99) 100 04/09/18 13:50 35 04/09/18 13:30 35 04/09/18 13:28 62 21 100 Mechanical Ventilator 35 04/09/18 13:16 64 122/45 04/09/18 13:06 64 33 100 Mechanical Ventilator 35 04/09/18 13:05 64 28 35 04/09/18 13:00 63 27 122/45 (70) 100 04/09/18 12:00 Mechanical Ventilator 04/09/18 12:00 35 04/09/18 12:00 60 56 136/45 (75) 99 04/09/18 12:00 61 04/09/18 12:00 98.9 Intake and Output 04/09/18 04/10/18 19:00 07:00 Intake Total 1010 ml 600 ml Output Total 1060 ml 980 ml Balance -50 ml -380 ml IV Total 510 ml Tube Feeding 400 ml 600 ml Other 100 ml Output Urine Total 1060 ml 980 ml # Bowel Movements 3 3 Laboratory Tests Test 04/10/18 04:00 04/10/18 09:50 White Blood Count 7.7 K/UL (4.8-10.8) Red Blood Count 3.49 M/UL (4.20-5.40) L Hemoglobin 9.7 G/DL (12.0-16.0) L Hematocrit 30.0 % (37.0-47.0) L Mean Corpuscular Volume 86 FL (80-99) Mean Corpuscular Hemoglobin 28.0 PG (27.0-31.0) Mean Corpuscular Hemoglobin Concent 32.5 G/DL (32.0-36.0) Red Cell Distribution Width 16.0 % (11.6-14.8) H Platelet Count 178 K/UL (150-450) Mean Platelet Volume 8.1 FL (6.5-10.1) Neutrophils (%) (Auto) 77.1 % (45.0-75.0) H Lymphocytes (%) (Auto) 11.6 % (20.0-45.0) L Monocytes (%) (Auto) 7.0 % (1.0-10.0) Eosinophils (%) (Auto) 3.4 % (0.0-3.0) H Basophils (%) (Auto) 0.9 % (0.0-2.0) Sodium Level 142 MMOL/L (136-145) Potassium Level 3.1 MMOL/L (3.5-5.1) L Chloride Level 106 MMOL/L (98-107) Carbon Dioxide Level 31 MMOL/L (21-32) Anion Gap 6 mmol/L (5-15) Blood Urea Nitrogen 22 mg/dL (7-18) H Creatinine 0.6 MG/DL (0.55-1.30) Estimat Glomerular Filtration Rate mL/min (>60) Glucose Level 130 MG/DL (74-106) H Calcium Level 8.1 MG/DL (8.5-10.1) L Total Bilirubin 0.3 MG/DL (0.2-1.0) Aspartate Amino Transf (AST/SGOT) 13 U/L (15-37) L Alanine Aminotransferase (ALT/SGPT) 10 U/L (12-78) L Alkaline Phosphatase 46 U/L (46-116) Pro-B-Type Natriuretic Peptide 2210 pg/mL (0-125) H Total Protein 5.9 G/DL (6.4-8.2) L Albumin 2.5 G/DL (3.4-5.0) L Globulin 3.4 g/dL Albumin/Globulin Ratio 0.7 (1.0-2.7) L Arterial Blood pH 7.399 (7.350-7.450) Arterial Blood Partial Pressure CO2 50.3 mmHg (35.0-45.0) H Arterial Blood Partial Pressure O2 90.8 mmHg (75.0-100.0) Arterial Blood HCO3 30.4 mmol/L (22.0-26.0) H Arterial Blood Oxygen Saturation 96.2 % (95-100) Arterial Blood Base Excess 4.7 (-2-2) H Ian Test Positive Objective HEAD AND NECK: On BIPAP. LUNGS: Coarse rhonchi. CARDIOVASCULAR: Irregular S1 and S2 with no gallop. ABDOMEN: Soft. EXTREMITIES: 1+ pitting edema. Yohan Milian MD Apr 10, 2018 11:48
--- NOTE | 2018-04-10 13:53 | Diagnostic Imaging Report ---
Indication: NG tube placement Comparison: None Single view of the abdomen obtained Findings: NG tube is in the stomach in good position. Bowel gas pattern is nonspecific. IMPRESSION: NG tube in good position
--- NOTE | 2018-04-10 13:55 | Diagnostic Imaging Report ---
Indication: Dyspnea Comparison: 04/09/2018 A single view chest radiograph was obtained. Findings: Mild cardiomegaly is present. Tubes and lines are stable. Mild interstitial edema seen previously has probably resolved. Correlate clinically. Trace pleural effusions could be present. Silhouetting of the left hemidiaphragm again noted. IMPRESSION: Marginal evidence of interstitial edema probably improved from the prior day
--- NOTE | 2018-04-10 15:41 | Diagnostic Imaging Report ---
Indication: Shortness of breath Technique: A ventilation/perfusion scan was performed. Ventilation was performed utilizing 34 mCi of Technetium 99m-DTPA. Perfusion was performed with 5 mCi of technetium 99m-MAA injected intravenously. Multiple side by side projections obtained. Findings: Ventilation is homogeneous. No defects are identified. Perfusion is homogeneous. No defects are identified. Large left basilar photopenic defect noted due to the heart which is enlarged. Impression: Low probability for pulmonary embolus
--- NOTE | 2018-04-10 16:06 | Internal Med Progress Note ---
Subjective Physician Name Yonathan Mendoza Attending Physician Yonathan Mendoza MD Current Medications Medications (Trade) Dose Ordered Sig/Ibrahima Route PRN Reason Start Time Stop Time Status Last Admin Dose Admin Acetaminophen (Tylenol) 650 mg Q4H PRN ORAL Fever (temp >100.3) 04/04/18 08:45 05/04/18 08:44 04/07/18 21:04 Amiodarone HCl (Cordarone) 200 mg DAILY NG 04/05/18 09:00 05/05/18 08:59 04/10/18 08:46 Apixaban (Eliquis) 5 mg Q12HR ORAL 04/04/18 21:00 05/04/18 20:59 04/10/18 08:46 Ceftriaxone Sodium 2 gm/ Dextrose 110 ml @ 220 mls/hr Q24H IVPB 04/06/18 11:00 04/13/18 10:59 04/10/18 10:43 Dextrose (Dextrose 50%) 25 ml Q30M PRN IV Hypoglycemia 04/04/18 08:45 05/04/18 08:44 Dextrose (Dextrose 50%) 50 ml Q30M PRN IV Hypoglycemia 04/04/18 10:30 05/04/18 10:29 Diltiazem HCl (Cardizem) 90 mg EVERY 8 HOURS NG 04/04/18 22:00 05/04/18 21:59 04/10/18 13:12 Doxycycline Monohydrate (Vibramycin) 100 mg EVERY 12 HOURS ORAL 04/06/18 13:00 04/13/18 12:59 04/10/18 08:46 Furosemide (Lasix) 40 mg EVERY 12 HOURS IV 04/08/18 21:00 05/04/18 21:59 04/10/18 08:47 Haloperidol Lactate (Haldol) 5 mg Q6H PRN IM Agitation 04/06/18 12:46 05/06/18 12:45 Ipratropium Jakin (Atrovent) 500 mcg Q6HRT HHN 04/10/18 01:00 04/15/18 00:59 04/10/18 12:53 Lorazepam (Ativan 2mg/ml 1ml) 2 mg Q4H PRN IV For Anxiety 04/04/18 08:45 04/11/18 08:44 04/10/18 02:21 Morphine Sulfate (Morphine Sulfate) 4 mg Q4H PRN IVP For Pain 04/04/18 08:45 04/11/18 08:44 Ondansetron HCl (Zofran) 4 mg Q6H PRN IVP Nausea & Vomiting 04/04/18 08:45 05/04/18 08:44 04/05/18 01:34 Pantoprazole (Protonix) 40 mg DAILY IV 04/04/18 10:15 05/04/18 10:14 04/10/18 08:47 Polyethylene Glycol (Miralax) 17 gm DAILYPRN PRN ORAL Constipation 04/04/18 08:45 05/04/18 08:44 04/08/18 01:42 Temazepam (Restoril) 15 mg HSPRN PRN ORAL Insomnia 04/04/18 08:45 04/11/18 08:44 04/06/18 20:26 Allergies: Coded Allergies: PIPERACILLIN (Unverified Allergy, Unknown, 03/10/18) TAZOBACTAM (Unverified Allergy, Unknown, 03/10/18) Subjective awake, alert, responsive, No CP or SOB, just extubated Objective Last Vital Signs Date Time Temp Pulse Resp B/P (MAP) Pulse Ox O2 Delivery O2 Flow Rate FiO2 04/10/18 13:12 61 127/47 04/10/18 12:57 33 95 Nasal Cannula 3.0 32 04/10/18 11:00 97.6 Laboratory Tests Test 04/10/18 04:00 04/10/18 09:50 White Blood Count 7.7 K/UL (4.8-10.8) Red Blood Count 3.49 M/UL (4.20-5.40) L Hemoglobin 9.7 G/DL (12.0-16.0) L Hematocrit 30.0 % (37.0-47.0) L Mean Corpuscular Volume 86 FL (80-99) Mean Corpuscular Hemoglobin 28.0 PG (27.0-31.0) Mean Corpuscular Hemoglobin Concent 32.5 G/DL (32.0-36.0) Red Cell Distribution Width 16.0 % (11.6-14.8) H Platelet Count 178 K/UL (150-450) Mean Platelet Volume 8.1 FL (6.5-10.1) Neutrophils (%) (Auto) 77.1 % (45.0-75.0) H Lymphocytes (%) (Auto) 11.6 % (20.0-45.0) L Monocytes (%) (Auto) 7.0 % (1.0-10.0) Eosinophils (%) (Auto) 3.4 % (0.0-3.0) H Basophils (%) (Auto) 0.9 % (0.0-2.0) Sodium Level 142 MMOL/L (136-145) Potassium Level 3.1 MMOL/L (3.5-5.1) L Chloride Level 106 MMOL/L (98-107) Carbon Dioxide Level 31 MMOL/L (21-32) Anion Gap 6 mmol/L (5-15) Blood Urea Nitrogen 22 mg/dL (7-18) H Creatinine 0.6 MG/DL (0.55-1.30) Estimat Glomerular Filtration Rate mL/min (>60) Glucose Level 130 MG/DL (74-106) H Calcium Level 8.1 MG/DL (8.5-10.1) L Total Bilirubin 0.3 MG/DL (0.2-1.0) Aspartate Amino Transf (AST/SGOT) 13 U/L (15-37) L Alanine Aminotransferase (ALT/SGPT) 10 U/L (12-78) L Alkaline Phosphatase 46 U/L (46-116) Pro-B-Type Natriuretic Peptide 2210 pg/mL (0-125) H Total Protein 5.9 G/DL (6.4-8.2) L Albumin 2.5 G/DL (3.4-5.0) L Globulin 3.4 g/dL Albumin/Globulin Ratio 0.7 (1.0-2.7) L Arterial Blood pH 7.399 (7.350-7.450) Arterial Blood Partial Pressure CO2 50.3 mmHg (35.0-45.0) H Arterial Blood Partial Pressure O2 90.8 mmHg (75.0-100.0) Arterial Blood HCO3 30.4 mmol/L (22.0-26.0) H Arterial Blood Oxygen Saturation 96.2 % (95-100) Arterial Blood Base Excess 4.7 (-2-2) H Ian Test Positive Intake and Output 04/09/18 04/10/18 19:00 07:00 Intake Total 1010 ml 600 ml Output Total 1060 ml 980 ml Balance -50 ml -380 ml IV Total 510 ml Tube Feeding 400 ml 600 ml Other 100 ml Output Urine Total 1060 ml 980 ml # Bowel Movements 3 3 Objective General: No acute distress, awake and alert HEENT: NCAT, sclera anicteric, PERRL, EOMI. Neck: Supple, no significant jugular venous distention, Lungs: fair inspiratory effort, clear to auscultation bilaterally, no Wheeze or Rales. Heart: Irregular rate and rhythm, normal S1/S2, no murmur Abdomen: soft, nontender, nondistended. Normoactive bowel sounds, Morbid obesity. Extremities: No Cyanosis , clubbing or edema. Neuro: A&O x 3, Able to move all extremities Skin: warm, no rashes Psych: Normal mood and affect Assessment/Plan Assessment/Plan (1) Pneumonia Assessment & Plan: Continue Doxycycline and ceftriaxone (2) Atrial fibrillation with RVR Assessment & Plan: Continue amiodarone- (3) CHF (congestive heart failure) (4) COPD (chronic obstructive pulmonary disease) Assessment & Plan: see pulmonary note. (5) Pacemaker (6) CAD (coronary artery disease) (7) Seizure disorder (8) Bipolar depression (9) Respiratory failure, acute Assessment & Plan: Continue vent per pulmonary (10) UTI (lower urinary tract infection) Assessment & Plan: Proteus. Continue ceftriaxone per ID Status: not improved Yonathan Mendoza MD Apr 10, 2018 16:06
--- NOTE | 2018-04-10 16:31 | Infectious Diseases Prog Note ---
Assessment/Plan Assessment/Plan ASSESSMENT: The patient is a 77-year-old female with: febrile, low grade, SP Normal white blood cells. UTI Proteus mirabilis. pneumonia, Legionella Legionella Ur Ag: Neg, Legionella IgM + / IgG - Scx: No sig growth Flu screen negative SP VDRF, 04/10 Sp extubated 04/10 Sp V/Q: Neg Atrial flutter CHF COPD CAD Hypertension Seizure disorder Schizophrenia Depression History of intraventricular pacemaker implantation PLAN: -continue on Rocephin day # 6 / 7 and Doxy d# 5/7-10 04/07 Sp IV vancomycin d # 3 -Monitor CBC -Monitor BMP -Monitor chest x-ray Subjective Allergies: Coded Allergies: PIPERACILLIN (Unverified Allergy, Unknown, 03/10/18) TAZOBACTAM (Unverified Allergy, Unknown, 03/10/18) Subjective extubated afebrile Objective Vital Signs Last 24 Hour Vital Signs Date Time Temp Pulse Resp B/P (MAP) Pulse Ox O2 Delivery O2 Flow Rate FiO2 04/10/18 13:12 61 127/47 04/10/18 12:57 64 33 95 Nasal Cannula 3.0 32 04/10/18 12:56 63 30 100 04/10/18 12:53 63 20 100 Bi-pap 35 04/10/18 12:00 60 22 116/79 (91) 100 04/10/18 12:00 Bi-pap 2.0 Nasal Cannula 04/10/18 12:00 60 04/10/18 11:07 60 29 100 Facial 35 04/10/18 11:06 Bi-pap 35 04/10/18 11:00 97.6 60 21 120/51 (74) 100 04/10/18 10:44 35 04/10/18 10:00 60 22 123/57 (79) 99 04/10/18 09:47 99 04/10/18 09:00 62 22 111/62 (78) 100 04/10/18 08:37 60 32 04/10/18 08:00 60 04/10/18 08:00 97.9 60 21 125/60 (81) 100 04/10/18 08:00 35 04/10/18 08:00 Mechanical Ventilator 04/10/18 07:03 61 12 100 Mechanical Ventilator 35 04/10/18 07:00 60 22 123/52 (75) 100 04/10/18 06:57 60 13 100 Mechanical Ventilator 35 04/10/18 06:57 60 17 35 04/10/18 06:02 60 22 104/43 (63) 100 04/10/18 05:24 61 107/47 04/10/18 05:14 60 14 35 04/10/18 05:00 60 15 106/42 (63) 100 04/10/18 04:00 60 04/10/18 04:00 97.9 60 21 107/47 (67) 100 04/10/18 04:00 35 04/10/18 04:00 Mechanical Ventilator 04/10/18 03:15 60 13 35 04/10/18 03:00 60 21 96/46 (63) 99 04/10/18 02:00 60 19 134/50 (78) 100 04/10/18 01:19 64 21 100 Mechanical Ventilator 35 04/10/18 01:09 60 24 35 04/10/18 01:09 60 24 98 Mechanical Ventilator 35 04/10/18 01:00 60 24 117/51 (73) 100 04/10/18 00:00 Mechanical Ventilator 04/10/18 00:00 35 04/10/18 00:00 98.0 60 18 99/54 (69) 100 04/10/18 00:00 60 04/09/18 23:00 60 12 101/52 (68) 100 04/09/18 22:51 60 12 35 04/09/18 22:00 60 21 111/48 (69) 100 04/09/18 21:59 60 138/50 04/09/18 21:05 60 12 35 04/09/18 21:00 60 22 138/50 (79) 100 04/09/18 20:00 35 04/09/18 20:00 60 04/09/18 20:00 Mechanical Ventilator 04/09/18 20:00 97.9 60 14 119/50 (73) 100 04/09/18 19:00 60 16 114/47 (69) 100 04/09/18 19:00 60 12 35 04/09/18 19:00 Mechanical Ventilator 35 04/09/18 19:00 Mechanical Ventilator 35 04/09/18 18:00 60 22 142/53 (82) 100 04/09/18 17:11 60 14 35 04/09/18 17:00 60 17 131/68 (89) 100 04/09/18 16:30 Mechanical Ventilator Height (Feet): 5 Height (Inches): 7.00 Weight (Pounds): 178 HEENT: atraumatic Respiratory/Chest: normal breath sounds Cardiovascular: regular rhythm Abdomen: soft, non tender Laboratory Tests Test 04/10/18 04:00 04/10/18 09:50 White Blood Count 7.7 K/UL (4.8-10.8) Red Blood Count 3.49 M/UL (4.20-5.40) L Hemoglobin 9.7 G/DL (12.0-16.0) L Hematocrit 30.0 % (37.0-47.0) L Mean Corpuscular Volume 86 FL (80-99) Mean Corpuscular Hemoglobin 28.0 PG (27.0-31.0) Mean Corpuscular Hemoglobin Concent 32.5 G/DL (32.0-36.0) Red Cell Distribution Width 16.0 % (11.6-14.8) H Platelet Count 178 K/UL (150-450) Mean Platelet Volume 8.1 FL (6.5-10.1) Neutrophils (%) (Auto) 77.1 % (45.0-75.0) H Lymphocytes (%) (Auto) 11.6 % (20.0-45.0) L Monocytes (%) (Auto) 7.0 % (1.0-10.0) Eosinophils (%) (Auto) 3.4 % (0.0-3.0) H Basophils (%) (Auto) 0.9 % (0.0-2.0) Sodium Level 142 MMOL/L (136-145) Potassium Level 3.1 MMOL/L (3.5-5.1) L Chloride Level 106 MMOL/L (98-107) Carbon Dioxide Level 31 MMOL/L (21-32) Anion Gap 6 mmol/L (5-15) Blood Urea Nitrogen 22 mg/dL (7-18) H Creatinine 0.6 MG/DL (0.55-1.30) Estimat Glomerular Filtration Rate mL/min (>60) Glucose Level 130 MG/DL (74-106) H Calcium Level 8.1 MG/DL (8.5-10.1) L Total Bilirubin 0.3 MG/DL (0.2-1.0) Aspartate Amino Transf (AST/SGOT) 13 U/L (15-37) L Alanine Aminotransferase (ALT/SGPT) 10 U/L (12-78) L Alkaline Phosphatase 46 U/L (46-116) Pro-B-Type Natriuretic Peptide 2210 pg/mL (0-125) H Total Protein 5.9 G/DL (6.4-8.2) L Albumin 2.5 G/DL (3.4-5.0) L Globulin 3.4 g/dL Albumin/Globulin Ratio 0.7 (1.0-2.7) L Arterial Blood pH 7.399 (7.350-7.450) Arterial Blood Partial Pressure CO2 50.3 mmHg (35.0-45.0) H Arterial Blood Partial Pressure O2 90.8 mmHg (75.0-100.0) Arterial Blood HCO3 30.4 mmol/L (22.0-26.0) H Arterial Blood Oxygen Saturation 96.2 % (95-100) Arterial Blood Base Excess 4.7 (-2-2) H Ian Test Positive Current Medications Medications (Trade) Dose Ordered Sig/Ibrahima Route PRN Reason Start Time Stop Time Status Last Admin Dose Admin Acetaminophen (Tylenol) 650 mg Q4H PRN ORAL Fever (temp >100.3) 04/04/18 08:45 05/04/18 08:44 04/07/18 21:04 Amiodarone HCl (Cordarone) 200 mg DAILY NG 04/05/18 09:00 05/05/18 08:59 04/10/18 08:46 Apixaban (Eliquis) 5 mg Q12HR ORAL 04/04/18 21:00 05/04/18 20:59 04/10/18 08:46 Ceftriaxone Sodium 2 gm/ Dextrose 110 ml @ 220 mls/hr Q24H IVPB 04/06/18 11:00 04/13/18 10:59 04/10/18 10:43 Dextrose (Dextrose 50%) 25 ml Q30M PRN IV Hypoglycemia 04/04/18 08:45 05/04/18 08:44 Dextrose (Dextrose 50%) 50 ml Q30M PRN IV Hypoglycemia 04/04/18 10:30 05/04/18 10:29 Diltiazem HCl (Cardizem) 90 mg EVERY 8 HOURS NG 04/04/18 22:00 12/3/18 21:59 04/10/18 13:12 Doxycycline Monohydrate (Vibramycin) 100 mg EVERY 12 HOURS ORAL 04/06/18 13:00 04/13/18 12:59 04/10/18 08:46 Furosemide (Lasix) 40 mg EVERY 12 HOURS IV 04/08/18 21:00 05/04/18 21:59 04/10/18 08:47 Haloperidol Lactate (Haldol) 5 mg Q6H PRN IM Agitation 04/06/18 12:46 05/06/18 12:45 Ipratropium [place] (Atrovent) 500 mcg Q6HRT HHN 04/10/18 01:00 04/15/18 00:59 04/10/18 12:53 Lorazepam (Ativan 2mg/ml 1ml) 2 mg Q4H PRN IV For Anxiety 04/04/18 08:45 04/11/18 08:44 04/10/18 02:21 Morphine Sulfate (Morphine Sulfate) 4 mg Q4H PRN IVP For Pain 04/04/18 08:45 04/11/18 08:44 Ondansetron HCl (Zofran) 4 mg Q6H PRN IVP Nausea & Vomiting 04/04/18 08:45 05/04/18 08:44 04/05/18 01:34 Pantoprazole (Protonix) 40 mg DAILY IV 04/04/18 10:15 05/04/18 10:14 04/10/18 08:47 Polyethylene Glycol (Miralax) 17 gm DAILYPRN PRN ORAL Constipation 04/04/18 08:45 05/04/18 08:44 04/08/18 01:42 Temazepam (Restoril) 15 mg HSPRN PRN ORAL Insomnia 04/04/18 08:45 04/11/18 08:44 04/06/18 20:26 Juan Moeller MD Apr 10, 2018 16:31
--- NOTE | 2018-04-10 18:16 | Progress Note ---
DATE: 04/10/2018 SUBJECTIVE: The patient is more alert. Continues to have waxing and waning consciousness. Confused. Still has episodes of agitation and receiving medications. MENTAL STATUS EXAMINATION: The patient is alert, has waxing and waning consciousness, confused, and disoriented. Mood is anxious. There is psychomotor agitation. Affect is flat. Thought process, there is a paucity of thought content. Thought content, no suicidal or homicidal ideation. ASSESSMENT: Encephalopathy due to metabolic disorder, dementia, bipolar disorder, and respiratory failure. PLAN: 1. Continue the Ativan p.r.n. 2. We will start the patient on Haldol p.r.n. 3. We will continue to follow and readjust the medications. Luiz Morrison M.D. DR: KRISHAN JOB#: [id number] CC:
[2018-04-11] VITALS (15 sets, daily range): BP systolic 101–142; BP diastolic 35–68
[2018-04-11] MEDS: Ipratropium 0.02% Inh Soln 2.5ml UD HHN SCH ×4 (00:43→20:37)
[2018-04-11 05:38] LABS: BASOPHILS % (AUTO) 0.9 % (0.0-2.0); EOSINOPHILS % (AUTO) 6.1 % (0.0-3.0); HEMOGLOBIN 11.7 G/DL (12.0-16.0); MEAN CORPUSCULAR VOLUME 86 FL (80-99); MONOCYTES % (AUTO) 8.4 % (1.0-10.0); NEUTROPHILS % (AUTO) 67.6 % (45.0-75.0); PLATELET COUNT 161 K/UL (150-450); RED BLOOD COUNT 4.05 M/UL (4.20-5.40); RED CELL DISTRIBUTION WIDTH 15.8 % (11.6-14.8); WHITE BLOOD COUNT 6.5 K/UL (4.8-10.8)
[2018-04-11 05:53] LABS: ALANINE AMINOTRANSFERASE 16 U/L (12-78); ALBUMIN 2.8 G/DL (3.4-5.0); ALBUMIN/GLOBULIN RATIO 0.7 (1.0-2.7); ALKALINE PHOSPHATASE 51 U/L (46-116); ANION GAP 3 mmol/L (5-15); ASPARTATE AMINO TRANSFERASE 13 U/L (15-37); BILIRUBIN,TOTAL 0.4 MG/DL (0.2-1.0); BLOOD UREA NITROGEN 15 mg/dL (7-18); CARBON DIOXIDE 35 MMOL/L (21-32); CHLORIDE 105 MMOL/L (98-107); CREATININE 0.6 MG/DL (0.55-1.30); PHOSPHORUS 4.1 MG/DL (2.5-4.9); SODIUM 143 MMOL/L (136-145)
[2018-04-11] MEDS: dilTIAZem HCl 90mg tab NG SCH ×3 (06:04→21:37)
--- NOTE | 2018-04-11 07:40 | Pulmonolgy Critical Care Note ---
Critical Care - Asmt/Plan Assessment/Plan: ASSESSMENT Acute respiratory failure secondary to diastolic dysfunction ,requiring intubation s/p extubation 04/10 Acute toxic encephalopathy secondary to sepsis-resolving Sepsis UTI with Proteus Legionella pneumonia Acute diastolic congestive heart failure Atrial flutter with RVR-rate controlled History of PPM( 2016) Hypertension COPD Depression Schizophrenia PLAN OF CARE ICU s/p extubation BiPAP at HS and prn titrate FiO2 to keep sat above 90% pulmonary toilet f/up with CXR and ABG in am VQ scan no PE continue diuretic, monitor volumes and cardiorenal parameters fup with cardio recommendation rate control with Cardizem and amiodarone a/coagulation with Eliquis BP management with Cardizem and Lasix ECHO with pEF 55% , [id number] MR Abx, ID follows urine cx+ Proteus blood cx negative sputum cx negative ; Legionella IgM+/IgG- influenza screen negative psych meds per psych management supportive care bowel regimen transfer to [facility] case discussed and evaluated by supervising physician Critical Care - Objective Last 24 Hour Vital Signs Date Time Temp Pulse Resp B/P (MAP) Pulse Ox O2 Delivery O2 Flow Rate FiO2 04/11/18 07:35 60 24 99 Nasal Cannula 2.0 28 04/11/18 07:22 61 23 97 Nasal Cannula 2.0 28 04/11/18 07:22 60 23 97 04/11/18 07:00 60 24 104/40 (61) 100 04/11/18 06:04 63 123/61 04/11/18 06:00 61 23 106/44 (64) 100 04/11/18 05:23 63 22 100 04/11/18 05:00 62 25 123/61 (81) 100 04/11/18 04:00 2.0 04/11/18 04:00 99.0 60 27 142/40 (74) 100 04/11/18 04:00 63 04/11/18 04:00 Room Air 2.0 Nasal Cannula 2.0 04/11/18 03:08 61 21 100 04/11/18 03:00 60 27 136/45 (75) 100 04/11/18 02:39 60 24 100 Facial 35 04/11/18 02:00 60 24 123/44 (70) 100 04/11/18 01:00 60 25 132/47 (75) 100 04/11/18 00:51 61 25 100 Bi-pap 35 04/11/18 00:42 60 24 100 Bi-pap 35 04/11/18 00:36 62 25 100 Facial 35 04/11/18 00:00 60 04/11/18 00:00 99.3 60 24 125/47 (73) 100 04/11/18 00:00 Room Air 2.0 Nasal Cannula 2.0 04/11/18 00:00 35 04/10/18 23:15 60 26 100 04/10/18 23:00 60 21 110/42 (64) 100 04/10/18 22:09 63 119/66 04/10/18 22:00 60 25 119/66 (83) 100 04/10/18 21:27 63 27 99 04/10/18 21:00 60 29 129/44 (72) 100 04/10/18 20:00 2.0 04/10/18 20:00 Room Air 2.0 Nasal Cannula 2.0 04/10/18 20:00 60 04/10/18 20:00 98.7 60 26 119/43 (68) 100 04/10/18 19:42 64 28 100 Nasal Cannula 3.0 32 04/10/18 19:32 61 28 100 Nasal Cannula 3.0 32 04/10/18 19:31 62 28 100 04/10/18 19:00 60 21 115/54 (74) 100 04/10/18 18:00 60 21 117/56 (76) 100 04/10/18 17:01 68 20 98 04/10/18 17:00 60 34 117/52 (73) 100 04/10/18 16:00 97.2 60 30 114/60 (78) 100 04/10/18 16:00 Bi-pap 2.0 Nasal Cannula 04/10/18 16:00 60 04/10/18 16:00 2.0 04/10/18 15:00 60 34 104/72 (83) 100 04/10/18 14:00 60 29 98/79 (85) 100 04/10/18 13:12 61 127/47 04/10/18 13:00 62 22 127/47 (73) 100 04/10/18 12:57 64 33 95 Nasal Cannula 3.0 32 04/10/18 12:56 63 30 100 04/10/18 12:53 63 20 100 Bi-pap 35 04/10/18 12:00 60 22 116/79 (91) 100 04/10/18 12:00 Bi-pap 2.0 Nasal Cannula 04/10/18 12:00 60 04/10/18 11:07 60 29 100 Facial 35 04/10/18 11:06 Bi-pap 35 04/10/18 11:00 97.6 60 21 120/51 (74) 100 04/10/18 10:44 35 04/10/18 10:00 60 22 123/57 (79) 99 04/10/18 09:47 99 04/10/18 09:00 62 22 111/62 (78) 100 04/10/18 08:37 60 32 04/10/18 08:00 60 04/10/18 08:00 97.9 60 21 125/60 (81) 100 04/10/18 08:00 35 04/10/18 08:00 Mechanical Ventilator Status: awake Condition: improving HEENT: atraumatic, normocephalic Neck: other - supple, trachea midline Lungs: rhonchi - few isolated rhonchi Heart: HR/BP stable - paced rhythm Abdomen: soft, non-tender - obese, active bowel sounds Extremities: other - trace edema BLE Critical Care - Subjective ROS Limited/Unobtainable: Yes Interval Events: extubated last night now on O2 via NC no signs of resp distress ABG this am with some hypercapnia, chronic due to COPD, Condition: critical, improving EKG Rhythm: Atrial Flutter - rate controlled FI02: 28 Sputum Amount: None PEEP: 0.0 I&O: Intake and Output 04/10/18 04/11/18 19:00 07:00 Intake Total 600 ml Output Total 850 ml 1070 ml Balance -250 ml -1070 ml Intake Oral 340 ml IV Total 110 ml Tube Feeding 150 ml Output Urine Total 850 ml 1070 ml # Bowel Movements 3 CXR: 04/11- Interval improvement of aeration of the right lower lobe. Persistent left lower lobe infiltrate/aspiration and left effusion. Enlarged cardiac silhouette with vascular congestion. Status post extubation and removal of enteric tube. ET-Tube: 7.5 ET Position: 23 Jazzy Campuzano NP Apr 11, 2018 07:40
--- NOTE | 2018-04-11 08:16 | Diagnostic Imaging Report ---
EXAM: XR Chest, 1 View CLINICAL HISTORY: DYSPNEA TECHNIQUE: Frontal view of the chest. COMPARISON: April 05, 2018. FINDINGS: Status post interval extubation and removal of enteric tube. Enlarged cardiac silhouette with vascular congestion. Low lung volumes. Interval improvement of aeration of the right lower lobe. Persistent left lower lobe infiltrate and effusion. IMPRESSION: Interval improvement of aeration of the right lower lobe. Persistent left lower lobe infiltrate/aspiration and left effusion. Enlarged cardiac silhouette with vascular congestion. Status post extubation and removal of enteric tube.
[2018-04-11] MEDS: Pantoprazole Inj IV SCH (09:11)
[2018-04-11] MEDS: Amiodarone 200mg tab NG SCH (09:12)
[2018-04-11] MEDS: Eliquis 2.5mg tablet ORAL SCH ×2 (09:12→21:34)
--- NOTE | 2018-04-11 10:51 | Infectious Diseases Prog Note ---
Assessment/Plan Assessment/Plan ASSESSMENT: The patient is a 77-year-old female with: febrile, low grade, SP Normal white blood cells. UTI Proteus mirabilis. pneumonia, Legionella 04/11 CXR: Interval improvement of aeration of the right lower lobe. Persistent left lower lobe infiltrate/aspiration and left effusion. Legionella Ur Ag: Neg, Legionella IgM + / IgG - Scx: No sig growth Flu screen negative SP VDRF, 04/10 Sp extubated 04/10 Sp V/Q: Neg Atrial flutter CHF COPD CAD Hypertension Seizure disorder Schizophrenia Depression History of intraventricular pacemaker implantation PLAN: -continue on Rocephin day # 7 and Doxy d# /-10 -04/07 Sp IV vancomycin d # 3 -Monitor CBC -Monitor BMP -Monitor chest x-ray Subjective Allergies: Coded Allergies: PIPERACILLIN (Unverified Allergy, Unknown, 03/10/18) TAZOBACTAM (Unverified Allergy, Unknown, 03/10/18) Subjective afebrile at 2l NC no leukocytosis Objective Vital Signs Last 24 Hour Vital Signs Date Time Temp Pulse Resp B/P (MAP) Pulse Ox O2 Delivery O2 Flow Rate FiO2 04/11/18 09:07 61 22 96 04/11/18 08:00 Nasal Cannula 2.0 Nasal Cannula 2.0 04/11/18 08:00 2.0 04/11/18 07:35 60 24 99 Nasal Cannula 2.0 28 04/11/18 07:22 61 23 97 Nasal Cannula 2.0 28 04/11/18 07:22 60 23 97 04/11/18 07:00 60 24 104/40 (61) 100 04/11/18 06:04 63 123/61 04/11/18 06:00 61 23 106/44 (64) 100 04/11/18 05:23 63 22 100 04/11/18 05:00 62 25 123/61 (81) 100 04/11/18 04:00 2.0 04/11/18 04:00 99.0 60 27 142/40 (74) 100 04/11/18 04:00 63 04/11/18 04:00 Room Air 2.0 Nasal Cannula 2.0 04/11/18 03:08 61 21 100 04/11/18 03:00 60 27 136/45 (75) 100 04/11/18 02:39 60 24 100 Facial 35 04/11/18 02:00 60 24 123/44 (70) 100 04/11/18 01:00 60 25 132/47 (75) 100 04/11/18 00:51 61 25 100 Bi-pap 35 04/11/18 00:42 60 24 100 Bi-pap 35 04/11/18 00:36 62 25 100 Facial 35 04/11/18 00:00 60 04/11/18 00:00 99.3 60 24 125/47 (73) 100 04/11/18 00:00 Room Air 2.0 Nasal Cannula 2.0 04/11/18 00:00 35 04/10/18 23:15 60 26 100 04/10/18 23:00 60 21 110/42 (64) 100 04/10/18 22:09 63 119/66 04/10/18 22:00 60 25 119/66 (83) 100 04/10/18 21:27 63 27 99 04/10/18 21:00 60 29 129/44 (72) 100 04/10/18 20:00 2.0 04/10/18 20:00 Room Air 2.0 Nasal Cannula 2.0 04/10/18 20:00 60 04/10/18 20:00 98.7 60 26 119/43 (68) 100 04/10/18 19:42 64 28 100 Nasal Cannula 3.0 32 04/10/18 19:32 61 28 100 Nasal Cannula 3.0 32 04/10/18 19:31 62 28 100 04/10/18 19:00 60 21 115/54 (74) 100 04/10/18 18:00 60 21 117/56 (76) 100 04/10/18 17:01 68 20 98 04/10/18 17:00 60 34 117/52 (73) 100 04/10/18 16:00 97.2 60 30 114/60 (78) 100 04/10/18 16:00 Bi-pap 2.0 Nasal Cannula 04/10/18 16:00 60 04/10/18 16:00 2.0 04/10/18 15:00 60 34 104/72 (83) 100 04/10/18 14:00 60 29 98/79 (85) 100 04/10/18 13:12 61 127/47 04/10/18 13:00 62 22 127/47 (73) 100 04/10/18 12:57 64 33 95 Nasal Cannula 3.0 32 04/10/18 12:56 63 30 100 04/10/18 12:53 63 20 100 Bi-pap 35 04/10/18 12:00 60 22 116/79 (91) 100 04/10/18 12:00 Bi-pap 2.0 Nasal Cannula 04/10/18 12:00 60 04/10/18 11:07 60 29 100 Facial 35 04/10/18 11:06 Bi-pap 35 04/10/18 11:00 97.6 60 21 120/51 (74) 100 04/10/18 10:44 35 Height (Feet): 5 Height (Inches): 7.00 Weight (Pounds): 175 Objective Status: awake Condition: improving HEENT: atraumatic, normocephalic, other - soft, trachea midline Lungs: rhonchi - few isolated rhonchi Heart: HR/BP stable Abdomen: soft, non-tender - obese, active bowel sounds Extremities: other - trace edema BLE Laboratory Tests Test 04/11/18 04:00 04/11/18 08:20 White Blood Count 6.5 K/UL (4.8-10.8) Red Blood Count 4.05 M/UL (4.20-5.40) L Hemoglobin 11.7 G/DL (12.0-16.0) L Hematocrit 35.0 % (37.0-47.0) L Mean Corpuscular Volume 86 FL (80-99) Mean Corpuscular Hemoglobin 28.8 PG (27.0-31.0) Mean Corpuscular Hemoglobin Concent 33.3 G/DL (32.0-36.0) Red Cell Distribution Width 15.8 % (11.6-14.8) H Platelet Count 161 K/UL (150-450) Mean Platelet Volume 7.8 FL (6.5-10.1) Neutrophils (%) (Auto) 67.6 % (45.0-75.0) Lymphocytes (%) (Auto) 17.0 % (20.0-45.0) L Monocytes (%) (Auto) 8.4 % (1.0-10.0) Eosinophils (%) (Auto) 6.1 % (0.0-3.0) H Basophils (%) (Auto) 0.9 % (0.0-2.0) Sodium Level 143 MMOL/L (136-145) Potassium Level 4.0 MMOL/L (3.5-5.1) Chloride Level 105 MMOL/L (98-107) Carbon Dioxide Level 35 MMOL/L (21-32) H Anion Gap 3 mmol/L (5-15) L Blood Urea Nitrogen 15 mg/dL (7-18) Creatinine 0.6 MG/DL (0.55-1.30) Estimat Glomerular Filtration Rate mL/min (>60) Glucose Level 99 MG/DL (74-106) Calcium Level 9.0 MG/DL (8.5-10.1) Phosphorus Level 4.1 MG/DL (2.5-4.9) Magnesium Level 1.9 MG/DL (1.8-2.4) Total Bilirubin 0.4 MG/DL (0.2-1.0) Aspartate Amino Transf (AST/SGOT) 13 U/L (15-37) L Alanine Aminotransferase (ALT/SGPT) 16 U/L (12-78) Alkaline Phosphatase 51 U/L (46-116) Total Protein 6.8 G/DL (6.4-8.2) Albumin 2.8 G/DL (3.4-5.0) L Globulin 4.0 g/dL Albumin/Globulin Ratio 0.7 (1.0-2.7) L Arterial Blood pH 7.377 (7.350-7.450) Arterial Blood Partial Pressure CO2 52.1 mmHg (35.0-45.0) H Arterial Blood Partial Pressure O2 73.9 mmHg (75.0-100.0) L Arterial Blood HCO3 29.9 mmol/L (22.0-26.0) H Arterial Blood Oxygen Saturation 93.8 % (95-100) L Arterial Blood Base Excess 3.9 (-2-2) H Ian Test Positive Current Medications Medications (Trade) Dose Ordered Sig/Ibrahima Route PRN Reason Start Time Stop Time Status Last Admin Dose Admin Acetaminophen (Tylenol) 650 mg Q4H PRN ORAL Fever (temp >100.3) 04/04/18 08:45 05/04/18 08:44 04/07/18 21:04 Amiodarone HCl (Cordarone) 200 mg DAILY NG 04/05/18 09:00 05/05/18 08:59 04/11/18 09:12 Apixaban (Eliquis) 5 mg Q12HR ORAL 04/04/18 21:00 05/04/18 20:59 04/11/18 09:12 Ceftriaxone Sodium 2 gm/ Dextrose 110 ml @ 220 mls/hr Q24H IVPB 04/06/18 11:00 04/13/18 10:59 04/10/18 10:43 Dextrose (Dextrose 50%) 25 ml Q30M PRN IV Hypoglycemia 04/04/18 08:45 05/04/18 08:44 Dextrose (Dextrose 50%) 50 ml Q30M PRN IV Hypoglycemia 04/04/18 10:30 05/04/18 10:29 Diltiazem HCl (Cardizem) 90 mg EVERY 8 HOURS NG 04/04/18 22:00 05/04/18 21:59 04/11/18 06:04 Doxycycline Monohydrate (Vibramycin) 100 mg EVERY 12 HOURS ORAL 04/06/18 13:00 04/13/18 12:59 04/11/18 09:12 Furosemide (Lasix) 40 mg EVERY 12 HOURS IV 04/08/18 21:00 05/04/18 21:59 04/11/18 09:11 Haloperidol Lactate (Haldol) 5 mg Q6H PRN IM Agitation 04/06/18 12:46 05/06/18 12:45 Ipratropium [place] (Atrovent) 500 mcg Q6HRT HHN 04/10/18 01:00 04/15/18 00:59 04/11/18 07:22 Ondansetron HCl (Zofran) 4 mg Q6H PRN IVP Nausea & Vomiting 04/04/18 08:45 05/04/18 08:44 04/05/18 01:34 Pantoprazole (Protonix) 40 mg DAILY IV 04/04/18 10:15 05/04/18 10:14 04/11/18 09:11 Polyethylene Glycol (Miralax) 17 gm DAILYPRN PRN ORAL Constipation 04/04/18 08:45 05/04/18 08:44 04/08/18 01:42 Danica Nayak M.D. Apr 11, 2018 10:51
[2018-04-11] MEDS: cefTRIAXone 2gm/D5W 110ml IVPB SCH ×2 (11:30)
--- NOTE | 2018-04-11 12:46 | Cardiac Electrophysiology PN ---
Assessment/Plan Assessment/Plan 1. Atrial flutter with rapid ventricular response. Rate controlled. On Cardizem 90 mg every 8 hours, apixaban 5 mg bid and amiodarone 200 mg daily. Passed swallow eval on puree diet 2. Status post Medtronic Micra leadless pacemaker implantation in 2016 at [facility]. 3. Respiratory failure to diastolic dysfunction on Vent. EF of 55%. On Lasix 40 mg IV BID. Extubated 4. Hypertension, on Lasix and Cardizem. 5. Psychosis and schizophrenia, on Risperdal. DYLAN RN Subjective Subjective Transferred out of ICU in Atrial fib with controlled rate and occasionally V paced. Alert in NAD Objective Last 24 Hour Vital Signs Date Time Temp Pulse Resp B/P (MAP) Pulse Ox O2 Delivery O2 Flow Rate FiO2 04/11/18 12:36 98.3 62 18 131/51 (77) 98 04/11/18 12:10 2.0 04/11/18 12:10 Nasal Cannula 2.0 Nasal Cannula 2.0 04/11/18 11:00 60 26 119/45 (69) 100 04/11/18 10:54 60 27 98 04/11/18 10:00 60 26 106/43 (64) 99 04/11/18 09:07 61 22 96 04/11/18 09:00 60 27 101/68 (79) 99 04/11/18 08:00 Nasal Cannula 2.0 Nasal Cannula 2.0 04/11/18 08:00 97.7 60 25 108/35 (59) 99 04/11/18 08:00 2.0 04/11/18 08:00 60 04/11/18 07:35 60 24 99 Nasal Cannula 2.0 28 04/11/18 07:22 61 23 97 Nasal Cannula 2.0 28 04/11/18 07:22 60 23 97 04/11/18 07:00 60 24 104/40 (61) 100 04/11/18 06:04 63 123/61 04/11/18 06:00 61 23 106/44 (64) 100 04/11/18 05:23 63 22 100 04/11/18 05:00 62 25 123/61 (81) 100 04/11/18 04:00 2.0 04/11/18 04:00 99.0 60 27 142/40 (74) 100 04/11/18 04:00 63 04/11/18 04:00 Room Air 2.0 Nasal Cannula 2.0 04/11/18 03:08 61 21 100 04/11/18 03:00 60 27 136/45 (75) 100 04/11/18 02:39 60 24 100 Facial 35 04/11/18 02:00 60 24 123/44 (70) 100 04/11/18 01:00 60 25 132/47 (75) 100 04/11/18 00:51 61 25 100 Bi-pap 35 04/11/18 00:42 60 24 100 Bi-pap 35 04/11/18 00:36 62 25 100 Facial 35 04/11/18 00:00 60 04/11/18 00:00 99.3 60 24 125/47 (73) 100 04/11/18 00:00 Room Air 2.0 Nasal Cannula 2.0 04/11/18 00:00 35 04/10/18 23:15 60 26 100 04/10/18 23:00 60 21 110/42 (64) 100 04/10/18 22:09 63 119/66 04/10/18 22:00 60 25 119/66 (83) 100 04/10/18 21:27 63 27 99 04/10/18 21:00 60 29 129/44 (72) 100 04/10/18 20:00 2.0 04/10/18 20:00 Room Air 2.0 Nasal Cannula 2.0 04/10/18 20:00 60 04/10/18 20:00 98.7 60 26 119/43 (68) 100 04/10/18 19:42 64 28 100 Nasal Cannula 3.0 32 04/10/18 19:32 61 28 100 Nasal Cannula 3.0 32 04/10/18 19:31 62 28 100 04/10/18 19:00 60 21 115/54 (74) 100 04/10/18 18:00 60 21 117/56 (76) 100 04/10/18 17:01 68 20 98 04/10/18 17:00 60 34 117/52 (73) 100 04/10/18 16:00 97.2 60 30 114/60 (78) 100 04/10/18 16:00 Bi-pap 2.0 Nasal Cannula 04/10/18 16:00 60 04/10/18 16:00 2.0 04/10/18 15:00 60 34 104/72 (83) 100 04/10/18 14:00 60 29 98/79 (85) 100 04/10/18 13:12 61 127/47 04/10/18 13:00 62 22 127/47 (73) 100 04/10/18 12:57 64 33 95 Nasal Cannula 3.0 32 04/10/18 12:56 63 30 100 04/10/18 12:53 63 20 100 Bi-pap 35 Intake and Output 04/10/18 04/11/18 19:00 07:00 Intake Total 600 ml Output Total 850 ml 1070 ml Balance -250 ml -1070 ml Intake Oral 340 ml IV Total 110 ml Tube Feeding 150 ml Output Urine Total 850 ml 1070 ml # Bowel Movements 3 Laboratory Tests Test 04/11/18 04:00 04/11/18 08:20 White Blood Count 6.5 K/UL (4.8-10.8) Red Blood Count 4.05 M/UL (4.20-5.40) L Hemoglobin 11.7 G/DL (12.0-16.0) L Hematocrit 35.0 % (37.0-47.0) L Mean Corpuscular Volume 86 FL (80-99) Mean Corpuscular Hemoglobin 28.8 PG (27.0-31.0) Mean Corpuscular Hemoglobin Concent 33.3 G/DL (32.0-36.0) Red Cell Distribution Width 15.8 % (11.6-14.8) H Platelet Count 161 K/UL (150-450) Mean Platelet Volume 7.8 FL (6.5-10.1) Neutrophils (%) (Auto) 67.6 % (45.0-75.0) Lymphocytes (%) (Auto) 17.0 % (20.0-45.0) L Monocytes (%) (Auto) 8.4 % (1.0-10.0) Eosinophils (%) (Auto) 6.1 % (0.0-3.0) H Basophils (%) (Auto) 0.9 % (0.0-2.0) Sodium Level 143 MMOL/L (136-145) Potassium Level 4.0 MMOL/L (3.5-5.1) Chloride Level 105 MMOL/L (98-107) Carbon Dioxide Level 35 MMOL/L (21-32) H Anion Gap 3 mmol/L (5-15) L Blood Urea Nitrogen 15 mg/dL (7-18) Creatinine 0.6 MG/DL (0.55-1.30) Estimat Glomerular Filtration Rate mL/min (>60) Glucose Level 99 MG/DL (74-106) Calcium Level 9.0 MG/DL (8.5-10.1) Phosphorus Level 4.1 MG/DL (2.5-4.9) Magnesium Level 1.9 MG/DL (1.8-2.4) Total Bilirubin 0.4 MG/DL (0.2-1.0) Aspartate Amino Transf (AST/SGOT) 13 U/L (15-37) L Alanine Aminotransferase (ALT/SGPT) 16 U/L (12-78) Alkaline Phosphatase 51 U/L (46-116) Total Protein 6.8 G/DL (6.4-8.2) Albumin 2.8 G/DL (3.4-5.0) L Globulin 4.0 g/dL Albumin/Globulin Ratio 0.7 (1.0-2.7) L Arterial Blood pH 7.377 (7.350-7.450) Arterial Blood Partial Pressure CO2 52.1 mmHg (35.0-45.0) H Arterial Blood Partial Pressure O2 73.9 mmHg (75.0-100.0) L Arterial Blood HCO3 29.9 mmol/L (22.0-26.0) H Arterial Blood Oxygen Saturation 93.8 % (95-100) L Arterial Blood Base Excess 3.9 (-2-2) H Ian Test Positive Objective HEAD AND NECK: On BIPAP. LUNGS: Coarse rhonchi. CARDIOVASCULAR: Irregular S1 and S2 with no gallop. ABDOMEN: Soft. EXTREMITIES: 1+ pitting edema. Yohan Milian MD Apr 11, 2018 12:46
[2018-04-11] MEDS ORDERED: Haloperidol 5mg/ml Inj IM PRN (13:00)
[2018-04-11] MEDS ORDERED: Tubing IV Secondary IV ONE (13:30)
[2018-04-11] MEDS ORDERED: NS 275ml ONE ×2 (13:30→17:54)
--- NOTE | 2018-04-11 18:27 | Internal Med Progress Note ---
Subjective Date of Service: Apr 11, 2018 Physician Name DuttaJuan Attending Physician Yonathan Mendoza MD Current Medications Medications (Trade) Dose Ordered Sig/Ibrahima Route PRN Reason Start Time Stop Time Status Last Admin Dose Admin Acetaminophen (Tylenol) 650 mg Q4H PRN ORAL Fever (temp >100.3) 04/11/18 12:45 05/04/18 08:44 Amiodarone HCl (Cordarone) 200 mg DAILY NG 04/12/18 09:00 05/05/18 08:59 Apixaban (Eliquis) 5 mg Q12HR ORAL 04/11/18 21:00 05/04/18 20:59 Ceftriaxone Sodium 2 gm/ Dextrose 110 ml @ 220 mls/hr Q24H IVPB 04/12/18 11:00 04/13/18 10:59 Dextrose (Dextrose 50%) 25 ml Q30M PRN IV Hypoglycemia 04/11/18 12:45 05/04/18 08:44 Dextrose (Dextrose 50%) 50 ml Q30M PRN IV Hypoglycemia 04/11/18 12:30 05/04/18 10:29 Diltiazem HCl (Cardizem) 90 mg EVERY 8 HOURS NG 04/11/18 14:00 05/04/18 21:59 04/11/18 13:39 Doxycycline Monohydrate (Vibramycin) 100 mg EVERY 12 HOURS ORAL 04/11/18 21:00 04/13/18 12:59 Furosemide (Lasix) 40 mg EVERY 12 HOURS IV 04/11/18 21:00 05/04/18 21:59 Haloperidol Lactate (Haldol) 5 mg Q6H PRN IM Agitation 04/11/18 13:00 05/06/18 12:45 Ipratropium [place] (Atrovent) 500 mcg Q6HRT HHN 04/11/18 13:00 04/15/18 00:59 04/11/18 13:05 Lansoprazole (Prevacid) 30 mg DAILY GT 04/12/18 09:00 05/12/18 08:59 Ondansetron HCl (Zofran) 4 mg Q6H PRN IVP Nausea & Vomiting 04/11/18 14:45 05/04/18 08:44 Polyethylene Glycol (Miralax) 17 gm DAILYPRN PRN ORAL Constipation 04/12/18 08:45 05/04/18 08:44 Allergies: Coded Allergies: PIPERACILLIN (Unverified Allergy, Unknown, 03/10/18) TAZOBACTAM (Unverified Allergy, Unknown, 03/10/18) ROS Limited/Unobtainable: Yes Subjective 77 YO F admitted with respiratory failure and atrial flutter wit rapid ventricular rate. Cover for - Dr Mendoza. Tolerating nasal canula. CHRISTOPHER Objective Last Vital Signs Date Time Temp Pulse Resp B/P (MAP) Pulse Ox O2 Delivery O2 Flow Rate FiO2 04/11/18 17:30 98 04/11/18 16:00 2.0 04/11/18 16:00 97.7 61 19 120/53 (75) 04/11/18 16:00 Nasal Cannula Nasal Cannula 04/11/18 13:15 28 Laboratory Tests Test 04/11/18 04:00 04/11/18 08:20 White Blood Count 6.5 K/UL (4.8-10.8) Red Blood Count 4.05 M/UL (4.20-5.40) L Hemoglobin 11.7 G/DL (12.0-16.0) L Hematocrit 35.0 % (37.0-47.0) L Mean Corpuscular Volume 86 FL (80-99) Mean Corpuscular Hemoglobin 28.8 PG (27.0-31.0) Mean Corpuscular Hemoglobin Concent 33.3 G/DL (32.0-36.0) Red Cell Distribution Width 15.8 % (11.6-14.8) H Platelet Count 161 K/UL (150-450) Mean Platelet Volume 7.8 FL (6.5-10.1) Neutrophils (%) (Auto) 67.6 % (45.0-75.0) Lymphocytes (%) (Auto) 17.0 % (20.0-45.0) L Monocytes (%) (Auto) 8.4 % (1.0-10.0) Eosinophils (%) (Auto) 6.1 % (0.0-3.0) H Basophils (%) (Auto) 0.9 % (0.0-2.0) Sodium Level 143 MMOL/L (136-145) Potassium Level 4.0 MMOL/L (3.5-5.1) Chloride Level 105 MMOL/L (98-107) Carbon Dioxide Level 35 MMOL/L (21-32) H Anion Gap 3 mmol/L (5-15) L Blood Urea Nitrogen 15 mg/dL (7-18) Creatinine 0.6 MG/DL (0.55-1.30) Estimat Glomerular Filtration Rate mL/min (>60) Glucose Level 99 MG/DL (74-106) Calcium Level 9.0 MG/DL (8.5-10.1) Phosphorus Level 4.1 MG/DL (2.5-4.9) Magnesium Level 1.9 MG/DL (1.8-2.4) Total Bilirubin 0.4 MG/DL (0.2-1.0) Aspartate Amino Transf (AST/SGOT) 13 U/L (15-37) L Alanine Aminotransferase (ALT/SGPT) 16 U/L (12-78) Alkaline Phosphatase 51 U/L (46-116) Total Protein 6.8 G/DL (6.4-8.2) Albumin 2.8 G/DL (3.4-5.0) L Globulin 4.0 g/dL Albumin/Globulin Ratio 0.7 (1.0-2.7) L Arterial Blood pH 7.377 (7.350-7.450) Arterial Blood Partial Pressure CO2 52.1 mmHg (35.0-45.0) H Arterial Blood Partial Pressure O2 73.9 mmHg (75.0-100.0) L Arterial Blood HCO3 29.9 mmol/L (22.0-26.0) H Arterial Blood Oxygen Saturation 93.8 % (95-100) L Arterial Blood Base Excess 3.9 (-2-2) H Ian Test Positive Intake and Output 04/10/18 04/11/18 19:00 07:00 Intake Total 600 ml Output Total 850 ml 1070 ml Balance -250 ml -1070 ml Intake Oral 340 ml IV Total 110 ml Tube Feeding 150 ml Output Urine Total 850 ml 1070 ml # Bowel Movements 3 Objective General Appearance: WD/WN, no apparent distress EENT: PERRL/EOMI, normal ENT inspection Neck: non-tender, normal alignment, supple Cardiovascular: normal peripheral pulses, regular rhythm, no gallop/murmur, no JVD, tachycardia Respiratory/Chest: nasal canula; chest wall non-tender, respiratory distress, crackles/rales, rhonchi - bilaterally, expiratory wheezing Abdomen: normal bowel sounds, non tender, soft, no organomegaly, no mass Extremities: normal range of motion, non-tender Skin: normal pigmentation, warm/dry Assessment/Plan Problem List: (1) Pneumonia Assessment & Plan: Continue vanco and ceftriaxone (2) Atrial fibrillation with RVR Assessment & Plan: Cntinue amiodarone-See cardiology note. (3) CHF (congestive heart failure) (4) COPD (chronic obstructive pulmonary disease) Assessment & Plan: see pulmonary note. (5) Pacemaker (6) CAD (coronary artery disease) (7) Seizure disorder (8) Bipolar depression (9) Respiratory failure, acute Assessment & Plan: Continue vent per pulmonary (10) UTI (lower urinary tract infection) Assessment & Plan: Proteus. Continue ceftriaxone per ID Status: not improved Juan Dutta MD Apr 11, 2018 18:27
[2018-04-12] VITALS: BP 133/55
[2018-04-12 04:10] VITALS: BP 141/63
[2018-04-12 05:26] LABS: BASOPHILS % (AUTO) 1.1 % (0.0-2.0); EOSINOPHILS % (AUTO) 4.1 % (0.0-3.0); HEMATOCRIT 34.4 % (37.0-47.0); LYMPHOCYTES % (AUTO) 16.6 % (20.0-45.0); MEAN CORPUSCULAR VOLUME 85 FL (80-99); MONOCYTES % (AUTO) 7.4 % (1.0-10.0); NEUTROPHILS % (AUTO) 70.8 % (45.0-75.0); PLATELET COUNT 179 K/UL (150-450); RED BLOOD COUNT 4.04 M/UL (4.20-5.40); RED CELL DISTRIBUTION WIDTH 15.3 % (11.6-14.8); WHITE BLOOD COUNT 7.2 K/UL (4.8-10.8)
[2018-04-12 05:34] LABS: ANION GAP 4 mmol/L (5-15); BLOOD UREA NITROGEN 10 mg/dL (7-18); CALCIUM 8.8 MG/DL (8.5-10.1); CARBON DIOXIDE 36 MMOL/L (21-32); CHLORIDE 102 MMOL/L (98-107); CREATININE 0.7 MG/DL (0.55-1.30); POTASSIUM 3.7 MMOL/L (3.5-5.1); SODIUM 142 MMOL/L (136-145)
[2018-04-12] MEDS: dilTIAZem HCl 90mg tab NG SCH ×3 (05:43→21:17)
[2018-04-12] MEDS: Ipratropium 0.02% Inh Soln 2.5ml UD HHN SCH ×3 (06:56→19:51)
[2018-04-12 08:00] VITALS: BP 139/59
[2018-04-12] MEDS: Amiodarone 200mg tab NG SCH (08:10)
[2018-04-12] MEDS: Eliquis 2.5mg tablet ORAL SCH ×2 (08:11→20:10)
[2018-04-12] MEDS ORDERED: Miralax 17gm pkt ORAL PRN (08:45)
[2018-04-12] MEDS ORDERED: Pantoprazole Inj IV SCH (09:00)
--- NOTE | 2018-04-12 10:31 | Pulmonology Progress Note ---
Assessment/Plan Assessment/Plan ASSESSMENT Acute respiratory failure secondary to diastolic dysfunction ,requiring intubation s/p extubation 04/10 recurrent respiratory failure with hypercapnia Acute toxic encephalopathy secondary to sepsis-resolving Sepsis UTI with Proteus Legionella pneumonia Acute diastolic congestive heart failure Atrial flutter with RVR-rate controlled History of PPM( 2016) Hypertension COPD Depression Schizophrenia PLAN OF CARE CHRISTOPHER s/p extubation on BiPAP now pulmonary toilet f/up with CXR and ABG in am VQ scan no PE continue diuretic, monitor volumes and cardiorenal parameters fup with cardio recommendation rate control with Cardizem and amiodarone a/coagulation with Eliquis BP management with Cardizem and Lasix ECHO with pEF 55% , [id number] MR Abx, ID follows urine cx+ Proteus blood cx negative sputum cx negative ; Legionella IgM+/IgG- influenza screen negative psych meds per psych management supportive care bowel regimen case discussed and evaluated by supervising physician Subjective Allergies: Coded Allergies: PIPERACILLIN (Unverified Allergy, Unknown, 03/10/18) TAZOBACTAM (Unverified Allergy, Unknown, 03/10/18) Subjective ABG with worsening hypercapnia placed on BiPAP Objective Last 24 Hour Vital Signs Date Time Temp Pulse Resp B/P (MAP) Pulse Ox O2 Delivery O2 Flow Rate FiO2 04/12/18 09:00 28 04/12/18 08:34 88 32 98 Facial 35 04/12/18 08:00 Nasal Cannula 2.0 Nasal Cannula 2.0 04/12/18 08:00 2.0 04/12/18 08:00 97.7 61 20 139/59 (85) 96 04/12/18 07:56 61 04/12/18 06:56 66 16 98 04/12/18 06:56 Nasal Cannula 2.0 28 04/12/18 06:56 Nasal Cannula 2.0 28 04/12/18 05:43 60 143/86 04/12/18 04:10 97.6 61 18 141/63 (89) 95 04/12/18 04:00 Nasal Cannula 2.0 Nasal Cannula 2.0 04/12/18 04:00 60 04/12/18 04:00 2.0 04/12/18 01:10 Nasal Cannula 2.0 28 04/12/18 01:10 Nasal Cannula 2.0 28 04/12/18 00:00 60 04/12/18 00:00 Nasal Cannula 2.0 Nasal Cannula 2.0 04/12/18 00:00 97.6 60 20 133/55 (81) 92 04/12/18 00:00 2.0 04/11/18 22:00 64 18 99 04/11/18 21:37 61 150/71 04/11/18 20:37 60 26 98 Nasal Cannula 2.0 28 04/11/18 20:00 2.0 04/11/18 20:00 Nasal Cannula 2.0 Nasal Cannula 2.0 04/11/18 20:00 98.5 60 20 137/63 (87) 97 04/11/18 19:38 60 04/11/18 17:30 98 04/11/18 16:00 2.0 04/11/18 16:00 97.7 61 19 120/53 (75) 99 04/11/18 16:00 Nasal Cannula 2.0 Nasal Cannula 2.0 04/11/18 16:00 60 04/11/18 14:44 98 04/11/18 13:39 62 131/51 04/11/18 13:15 62 26 96 Nasal Cannula 2.0 28 04/11/18 13:05 62 26 96 04/11/18 13:05 62 26 96 Nasal Cannula 2.0 28 04/11/18 12:36 98.3 62 18 131/51 (77) 98 04/11/18 12:10 2.0 04/11/18 12:10 Nasal Cannula 2.0 Nasal Cannula 2.0 04/11/18 12:00 60 04/11/18 11:00 60 26 119/45 (69) 100 04/11/18 10:54 60 27 98 Intake and Output 04/11/18 04/12/18 18:59 06:59 Intake Total 970 ml 440 ml Output Total 490 ml 750 ml Balance 480 ml -310 ml Intake Oral 970 ml 440 ml Output Urine Total 490 ml 750 ml # Bowel Movements 1 Objective General: awake , responsive elderly female on BiPAP 05/07 35% HEENT: atraumatic, normocephalic, Neck: trachea midline Lungs: few isolated rhonchi Heart: paced rhythm, Abdomen: soft, non-tender , obese, active bowel sounds Extremities: trace edema BLE Laboratory Tests 04/12/18 03:25: White Blood Count 7.2, Red Blood Count 4.04L, Hemoglobin 11.0L, Hematocrit 34.4L , Mean Corpuscular Volume 85, Mean Corpuscular Hemoglobin 27.3, Mean Corpuscular Hemoglobin Concent 32.0, Red Cell Distribution Width 15.3H, Platelet Count 179, Mean Platelet Volume 7.2, Neutrophils (%) (Auto) 70.8, Lymphocytes (%) (Auto) 16.6L, Monocytes (%) (Auto) 7.4, Eosinophils (%) (Auto) 4.1H, Basophils (%) (Auto) 1.1, Sodium Level 142, Potassium Level 3.7, Chloride Level 102, Carbon Dioxide Level 36H, Anion Gap 4L, Blood Urea Nitrogen 10, Creatinine 0.7, Estimat Glomerular Filtration Rate , Glucose Level 119H, Calcium Level 8.8 04/12/18 07:59: Arterial Blood pH 7.347L, Arterial Blood Partial Pressure CO2 66.1*H, Arterial Blood Partial Pressure O2 81.2, Arterial Blood HCO3 35.4H, Arterial Blood Oxygen Saturation 94.4L, Arterial Blood Base Excess 7.8H, Ian Test Positive Current Medications Medications (Trade) Dose Ordered Sig/Ibrahima Route PRN Reason Start Time Stop Time Status Last Admin Dose Admin Acetaminophen (Tylenol) 650 mg Q4H PRN ORAL Fever (temp >100.3) 04/11/18 12:45 05/04/18 08:44 Acetaminophen (Tylenol) 650 mg Q4H PRN ORAL Mild Pain 04/12/18 00:45 05/12/18 00:44 04/12/18 00:44 Amiodarone HCl (Cordarone) 200 mg DAILY NG 04/12/18 09:00 05/05/18 08:59 04/12/18 08:10 Apixaban (Eliquis) 5 mg Q12HR ORAL 04/11/18 21:00 05/04/18 20:59 04/12/18 08:11 Ceftriaxone Sodium 2 gm/ Dextrose 110 ml @ 220 mls/hr Q24H IVPB 04/12/18 11:00 04/13/18 10:59 Dextrose (Dextrose 50%) 25 ml Q30M PRN IV Hypoglycemia 04/11/18 12:45 05/04/18 08:44 Dextrose (Dextrose 50%) 50 ml Q30M PRN IV Hypoglycemia 04/11/18 12:30 05/04/18 10:29 Diltiazem HCl (Cardizem) 90 mg EVERY 8 HOURS NG 04/11/18 14:00 05/04/18 21:59 04/12/18 05:43 Doxycycline Monohydrate (Vibramycin) 100 mg EVERY 12 HOURS ORAL 04/11/18 21:00 04/13/18 12:59 04/12/18 08:11 Furosemide (Lasix) 40 mg EVERY 12 HOURS IV 04/11/18 21:00 05/04/18 21:59 04/12/18 08:11 Haloperidol Lactate (Haldol) 5 mg Q6H PRN IM Agitation 04/11/18 13:00 05/06/18 12:45 Ipratropium [place] (Atrovent) 500 mcg Q6HRT HHN 04/11/18 13:00 04/15/18 00:59 04/11/18 20:37 Lansoprazole (Prevacid) 30 mg DAILY GT 04/12/18 09:00 05/12/18 08:59 04/12/18 08:11 Ondansetron HCl (Zofran) 4 mg Q6H PRN IVP Nausea & Vomiting 04/11/18 14:45 05/04/18 08:44 Polyethylene Glycol (Miralax) 17 gm DAILYPRN PRN ORAL Constipation 04/12/18 08:45 05/04/18 08:44 Jazzy Campuzano NP Apr 12, 2018 10:31
[2018-04-12] MEDS ORDERED: NS 275ml ONE (10:43)
[2018-04-12] MEDS ORDERED: cefTRIAXone 2 GM in D5W 110 ML IVPB SCH (11:00)
[2018-04-12 12:00] VITALS: BP 148/64
--- NOTE | 2018-04-12 13:25 | Cardiac Electrophysiology PN ---
Assessment/Plan Assessment/Plan 1. Atrial flutter with rapid ventricular response. Rate controlled. On Cardizem 90 mg every 8 hours, apixaban 5 mg bid and amiodarone 200 mg daily. On puree diet 2. Status post Medtronic Micra leadless pacemaker implantation in 2016 at [facility]. 3. Respiratory failure to diastolic dysfunction on Vent. EF of 55%. On Lasix 40 mg IV BID. Extubated 4. Hypertension, on Lasix and Cardizem. 5. Psychosis and schizophrenia, on Risperdal. DYLAN RN Subjective Subjective In CHRISTOPHER in Atrial fib with controlled rate. Alert in NAD. Was on BIPAP earlier but now on 2 lit NC Objective Last 24 Hour Vital Signs Date Time Temp Pulse Resp B/P (MAP) Pulse Ox O2 Delivery O2 Flow Rate FiO2 04/12/18 13:17 61 148/64 04/12/18 12:35 Nasal Cannula 3.0 32 04/12/18 12:35 Nasal Cannula 2.0 28 04/12/18 12:00 Nasal Cannula 2.0 Nasal Cannula 2.0 04/12/18 12:00 97.9 61 21 148/64 (92) 99 04/12/18 11:51 62 04/12/18 10:39 84 32 97 Facial 35 04/12/18 09:00 28 04/12/18 08:34 88 32 98 Facial 35 04/12/18 08:00 Nasal Cannula 2.0 Nasal Cannula 2.0 04/12/18 08:00 2.0 04/12/18 08:00 97.7 61 20 139/59 (85) 96 04/12/18 07:56 61 04/12/18 06:56 66 16 98 04/12/18 06:56 Nasal Cannula 2.0 28 04/12/18 06:56 Nasal Cannula 2.0 28 04/12/18 05:43 60 143/86 04/12/18 04:10 97.6 61 18 141/63 (89) 95 04/12/18 04:00 Nasal Cannula 2.0 Nasal Cannula 2.0 04/12/18 04:00 60 04/12/18 04:00 2.0 04/12/18 01:10 Nasal Cannula 2.0 28 04/12/18 01:10 Nasal Cannula 2.0 28 04/12/18 00:00 60 04/12/18 00:00 Nasal Cannula 2.0 Nasal Cannula 2.0 04/12/18 00:00 97.6 60 20 133/55 (81) 92 04/12/18 00:00 2.0 04/11/18 22:00 64 18 99 04/11/18 21:37 61 150/71 04/11/18 20:37 60 26 98 Nasal Cannula 2.0 28 04/11/18 20:00 2.0 04/11/18 20:00 Nasal Cannula 2.0 Nasal Cannula 2.0 04/11/18 20:00 98.5 60 20 137/63 (87) 97 04/11/18 19:38 60 04/11/18 17:30 98 04/11/18 16:00 2.0 04/11/18 16:00 97.7 61 19 120/53 (75) 99 04/11/18 16:00 Nasal Cannula 2.0 Nasal Cannula 2.0 04/11/18 16:00 60 04/11/18 14:44 98 04/11/18 13:39 62 131/51 Intake and Output 04/11/18 04/12/18 19:00 07:00 Intake Total 970 ml 440 ml Output Total 440 ml 750 ml Balance 530 ml -310 ml Intake Oral 970 ml 440 ml Output Urine Total 440 ml 750 ml # Bowel Movements 1 Laboratory Tests Test 04/12/18 03:25 04/12/18 07:59 White Blood Count 7.2 K/UL (4.8-10.8) Red Blood Count 4.04 M/UL (4.20-5.40) L Hemoglobin 11.0 G/DL (12.0-16.0) L Hematocrit 34.4 % (37.0-47.0) L Mean Corpuscular Volume 85 FL (80-99) Mean Corpuscular Hemoglobin 27.3 PG (27.0-31.0) Mean Corpuscular Hemoglobin Concent 32.0 G/DL (32.0-36.0) Red Cell Distribution Width 15.3 % (11.6-14.8) H Platelet Count 179 K/UL (150-450) Mean Platelet Volume 7.2 FL (6.5-10.1) Neutrophils (%) (Auto) 70.8 % (45.0-75.0) Lymphocytes (%) (Auto) 16.6 % (20.0-45.0) L Monocytes (%) (Auto) 7.4 % (1.0-10.0) Eosinophils (%) (Auto) 4.1 % (0.0-3.0) H Basophils (%) (Auto) 1.1 % (0.0-2.0) Sodium Level 142 MMOL/L (136-145) Potassium Level 3.7 MMOL/L (3.5-5.1) Chloride Level 102 MMOL/L (98-107) Carbon Dioxide Level 36 MMOL/L (21-32) H Anion Gap 4 mmol/L (5-15) L Blood Urea Nitrogen 10 mg/dL (7-18) Creatinine 0.7 MG/DL (0.55-1.30) Estimat Glomerular Filtration Rate mL/min (>60) Glucose Level 119 MG/DL (74-106) H Calcium Level 8.8 MG/DL (8.5-10.1) Arterial Blood pH 7.347 (7.350-7.450) Arterial Blood Partial Pressure CO2 66.1 mmHg (35.0-45.0) *H Arterial Blood Partial Pressure O2 81.2 mmHg (75.0-100.0) Arterial Blood HCO3 35.4 mmol/L (22.0-26.0) H Arterial Blood Oxygen Saturation 94.4 % (95-100) L Arterial Blood Base Excess 7.8 (-2-2) H Ian Test Positive Objective HEAD AND NECK: On BIPAP. LUNGS: Coarse rhonchi. CARDIOVASCULAR: Irregular S1 and S2 with no gallop. ABDOMEN: Soft. EXTREMITIES: 1+ pitting edema. Yohan Milian MD Apr 12, 2018 13:25
--- NOTE | 2018-04-12 15:19 | Internal Med Progress Note ---
Subjective Date of Service: Apr 12, 2018 Physician Name Juan Dutta Attending Physician Yonathan Mendzoa MD Current Medications Medications (Trade) Dose Ordered Sig/Ibrahima Route PRN Reason Start Time Stop Time Status Last Admin Dose Admin Acetaminophen (Tylenol) 650 mg Q4H PRN ORAL Fever (temp >100.3) 04/11/18 12:45 05/04/18 08:44 Acetaminophen (Tylenol) 650 mg Q4H PRN ORAL Mild Pain 04/12/18 00:45 05/12/18 00:44 04/12/18 00:44 Amiodarone HCl (Cordarone) 200 mg DAILY NG 04/12/18 09:00 05/05/18 08:59 04/12/18 08:10 Apixaban (Eliquis) 5 mg Q12HR ORAL 04/11/18 21:00 05/04/18 20:59 04/12/18 08:11 Ceftriaxone Sodium 2 gm/ Dextrose 110 ml @ 220 mls/hr Q24H IVPB 04/12/18 11:00 04/13/18 10:59 04/12/18 11:11 Dextrose (Dextrose 50%) 25 ml Q30M PRN IV Hypoglycemia 04/11/18 12:45 05/04/18 08:44 Dextrose (Dextrose 50%) 50 ml Q30M PRN IV Hypoglycemia 04/11/18 12:30 05/04/18 10:29 Diltiazem HCl (Cardizem) 90 mg EVERY 8 HOURS NG 04/11/18 14:00 05/04/18 21:59 04/12/18 13:17 Doxycycline Monohydrate (Vibramycin) 100 mg EVERY 12 HOURS ORAL 04/11/18 21:00 04/13/18 12:59 04/12/18 08:11 Furosemide (Lasix) 40 mg EVERY 12 HOURS IV 04/11/18 21:00 05/04/18 21:59 04/12/18 08:11 Haloperidol Lactate (Haldol) 5 mg Q6H PRN IM Agitation 04/11/18 13:00 05/06/18 12:45 Ipratropium [place] (Atrovent) 500 mcg Q6HRT HHN 04/11/18 13:00 04/15/18 00:59 04/11/18 20:37 Lansoprazole (Prevacid) 30 mg DAILY GT 04/12/18 09:00 05/12/18 08:59 04/12/18 08:11 Ondansetron HCl (Zofran) 4 mg Q6H PRN IVP Nausea & Vomiting 04/11/18 14:45 05/04/18 08:44 Polyethylene Glycol (Miralax) 17 gm DAILYPRN PRN ORAL Constipation 04/12/18 08:45 05/04/18 08:44 Allergies: Coded Allergies: PIPERACILLIN (Unverified Allergy, Unknown, 03/10/18) TAZOBACTAM (Unverified Allergy, Unknown, 03/10/18) ROS Limited/Unobtainable: Yes Subjective 77 YO F admitted with respiratory failure and atrial flutter wit rapid ventricular rate. Now Legionella pneumonia. Cover for - Dr Mendoza. Tolerating nasal canula. CHRISTOPHER Objective Last Vital Signs Date Time Temp Pulse Resp B/P (MAP) Pulse Ox O2 Delivery O2 Flow Rate FiO2 04/12/18 13:17 61 148/64 04/12/18 13:00 2.0 04/12/18 12:35 Nasal Cannula 32 04/12/18 12:00 97.9 21 99 Laboratory Tests Test 04/12/18 03:25 04/12/18 07:59 White Blood Count 7.2 K/UL (4.8-10.8) Red Blood Count 4.04 M/UL (4.20-5.40) L Hemoglobin 11.0 G/DL (12.0-16.0) L Hematocrit 34.4 % (37.0-47.0) L Mean Corpuscular Volume 85 FL (80-99) Mean Corpuscular Hemoglobin 27.3 PG (27.0-31.0) Mean Corpuscular Hemoglobin Concent 32.0 G/DL (32.0-36.0) Red Cell Distribution Width 15.3 % (11.6-14.8) H Platelet Count 179 K/UL (150-450) Mean Platelet Volume 7.2 FL (6.5-10.1) Neutrophils (%) (Auto) 70.8 % (45.0-75.0) Lymphocytes (%) (Auto) 16.6 % (20.0-45.0) L Monocytes (%) (Auto) 7.4 % (1.0-10.0) Eosinophils (%) (Auto) 4.1 % (0.0-3.0) H Basophils (%) (Auto) 1.1 % (0.0-2.0) Sodium Level 142 MMOL/L (136-145) Potassium Level 3.7 MMOL/L (3.5-5.1) Chloride Level 102 MMOL/L (98-107) Carbon Dioxide Level 36 MMOL/L (21-32) H Anion Gap 4 mmol/L (5-15) L Blood Urea Nitrogen 10 mg/dL (7-18) Creatinine 0.7 MG/DL (0.55-1.30) Estimat Glomerular Filtration Rate mL/min (>60) Glucose Level 119 MG/DL (74-106) H Calcium Level 8.8 MG/DL (8.5-10.1) Arterial Blood pH 7.347 (7.350-7.450) Arterial Blood Partial Pressure CO2 66.1 mmHg (35.0-45.0) *H Arterial Blood Partial Pressure O2 81.2 mmHg (75.0-100.0) Arterial Blood HCO3 35.4 mmol/L (22.0-26.0) H Arterial Blood Oxygen Saturation 94.4 % (95-100) L Arterial Blood Base Excess 7.8 (-2-2) H Ian Test Positive Intake and Output 04/11/18 04/12/18 19:00 07:00 Intake Total 970 ml 440 ml Output Total 440 ml 750 ml Balance 530 ml -310 ml Intake Oral 970 ml 440 ml Output Urine Total 440 ml 750 ml # Bowel Movements 1 Objective General Appearance: WD/WN, no apparent distress EENT: PERRL/EOMI, normal ENT inspection Neck: non-tender, normal alignment, supple Cardiovascular: normal peripheral pulses, regular rhythm, no gallop/murmur, no JVD, tachycardia Respiratory/Chest: nasal canula; chest wall non-tender, respiratory distress, crackles/rales, rhonchi - bilaterally, expiratory wheezing Abdomen: normal bowel sounds, non tender, soft, no organomegaly, no mass Extremities: normal range of motion, non-tender Skin: normal pigmentation, warm/dry Assessment/Plan Problem List: (1) Pneumonia Assessment & Plan: Legionella. Continue doxycycline and ceftriaxone (2) Atrial fibrillation with RVR Assessment & Plan: Cntinue amiodarone-See cardiology note. (3) CHF (congestive heart failure) (4) COPD (chronic obstructive pulmonary disease) Assessment & Plan: see pulmonary note. (5) Pacemaker (6) CAD (coronary artery disease) (7) Seizure disorder (8) Bipolar depression (9) Respiratory failure, acute Assessment & Plan: Continue vent per pulmonary (10) UTI (lower urinary tract infection) Assessment & Plan: Proteus. Continue ceftriaxone per ID Status: unchanged Juan Dutta MD Apr 12, 2018 15:19
[2018-04-12 16:00] VITALS: BP 141/58
[2018-04-12 20:00] VITALS: BP 158/84
[2018-04-13] VITALS: BP 122/50
[2018-04-13] MEDS: Ipratropium 0.02% Inh Soln 2.5ml UD HHN SCH ×4 (01:18→19:16)
[2018-04-13 04:00] VITALS: BP 138/67
[2018-04-13 04:37] LABS: BASOPHILS % (AUTO) 0.8 % (0.0-2.0); EOSINOPHILS % (AUTO) 2.7 % (0.0-3.0); HEMATOCRIT 35.2 % (37.0-47.0); HEMOGLOBIN 11.6 G/DL (12.0-16.0); LYMPHOCYTES % (AUTO) 16.4 % (20.0-45.0); MEAN CORPUSCULAR VOLUME 85 FL (80-99); MONOCYTES % (AUTO) 8.5 % (1.0-10.0); NEUTROPHILS % (AUTO) 71.6 % (45.0-75.0); PLATELET COUNT 182 K/UL (150-450); RED BLOOD COUNT 4.15 M/UL (4.20-5.40); RED CELL DISTRIBUTION WIDTH 15.3 % (11.6-14.8); WHITE BLOOD COUNT 7.4 K/UL (4.8-10.8)
[2018-04-13 04:56] LABS: ANION GAP 4 mmol/L (5-15); BLOOD UREA NITROGEN 7 mg/dL (7-18); CALCIUM 8.7 MG/DL (8.5-10.1); CARBON DIOXIDE 39 MMOL/L (21-32); CHLORIDE 99 MMOL/L (98-107); CREATININE 0.6 MG/DL (0.55-1.30); POTASSIUM 3.4 MMOL/L (3.5-5.1); SODIUM 141 MMOL/L (136-145)
[2018-04-13] MEDS: dilTIAZem HCl 90mg tab NG SCH (06:12)
[2018-04-13 08:00] VITALS: BP 144/70
[2018-04-13] MEDS: Amiodarone 200mg tab NG SCH (08:18)
[2018-04-13] MEDS: Eliquis 2.5mg tablet ORAL SCH ×2 (08:18→21:34)
--- NOTE | 2018-04-13 11:05 | Diagnostic Imaging Report ---
Indication: Cough Technique: One view of the chest Comparison: 04/11/2018 Findings: Hazy opacity at the right lung base appears similar to the prior exam. Left-sided pleural effusion appears slightly improved. Generalized mild interstitial congestion may be slightly improved. The heart size is upper limits normal. There are mitral annular calcifications. Impression: Improving interstitial congestion and left-sided pleural effusion Persistent right basilar hazy opacity, may reflect pleural effusion, infiltrate, or combination of both
--- NOTE | 2018-04-13 11:14 | Infectious Diseases Prog Note ---
Assessment/Plan Assessment/Plan ASSESSMENT: The patient is a 77-year-old female with: Febrile, low grade, SP Normal white blood cells. UTI Proteus mirabilis. Pneumonia, Legionella 04/11 CXR: Interval improvement of aeration of the right lower lobe. Persistent left lower lobe infiltrate/aspiration and left effusion. Legionella Ur Ag: Neg, Legionella IgM + / IgG - Scx: No sig growth Flu screen negative SP VDRF, 04/10 Sp extubated 04/10 Sp V/Q: Neg Atrial flutter CHF COPD CAD Hypertension Seizure disorder Schizophrenia Depression History of intraventricular pacemaker implantation PLAN: -continue on Doxy d# 8/- -04/11 SP Rocephin day # -04/07 Sp IV vancomycin d # 3 -Monitor CBC -Monitor BMP -Monitor chest x-sunday Subjective Allergies: Coded Allergies: PIPERACILLIN (Unverified Allergy, Unknown, 03/10/18) TAZOBACTAM (Unverified Allergy, Unknown, 03/10/18) Subjective no new complain afebrile Objective Vital Signs Last 24 Hour Vital Signs Date Time Temp Pulse Resp B/P (MAP) Pulse Ox O2 Delivery O2 Flow Rate FiO2 04/13/18 08:00 63 04/13/18 08:00 97.3 67 22 144/70 (94) 97 04/13/18 07:59 58 20 98 Nasal Cannula 2.0 28 04/13/18 07:50 61 20 96 Nasal Cannula 2.0 28 04/13/18 06:12 62 138/67 04/13/18 06:00 2.0 04/13/18 05:31 52 26 96 Facial 35 04/13/18 04:00 60 04/13/18 04:00 98.4 60 24 138/67 (90) 98 04/13/18 04:00 28 04/13/18 04:00 Nasal Cannula 2.0 Nasal Cannula 2.0 04/13/18 01:34 58 24 100 Nasal Cannula 2.0 28 04/13/18 01:19 55 21 96 Nasal Cannula 2.0 28 04/13/18 00:00 28 04/13/18 00:00 Nasal Cannula 2.0 Nasal Cannula 2.0 04/13/18 00:00 97.6 65 20 122/50 (74) 98 04/12/18 23:20 69 04/12/18 22:55 54 28 95 Facial 35 04/12/18 21:29 65 28 95 Facial 35 04/12/18 21:20 28 04/12/18 21:17 75 141/58 04/12/18 21:00 Nasal Cannula 2.0 Nasal Cannula 2.0 04/12/18 20:00 97.6 65 22 158/84 (108) 99 04/12/18 20:00 76 04/12/18 20:00 2.0 04/12/18 19:59 75 24 100 Nasal Cannula 2.0 28 04/12/18 19:56 72 24 96 Nasal Cannula 2.0 28 04/12/18 16:00 Nasal Cannula 2.0 Nasal Cannula 2.0 04/12/18 16:00 98.5 61 20 141/58 (85) 98 04/12/18 15:24 62 04/12/18 13:17 61 148/64 04/12/18 13:00 2.0 04/12/18 12:35 Nasal Cannula 3.0 32 04/12/18 12:35 Nasal Cannula 2.0 28 04/12/18 12:00 Nasal Cannula 2.0 Nasal Cannula 2.0 04/12/18 12:00 97.9 61 21 148/64 (92) 99 04/12/18 11:51 62 Height (Feet): 5 Height (Inches): 7.00 Weight (Pounds): 174 HEENT: anicteric Respiratory/Chest: no respiratory distress Cardiovascular: regularly irregular Abdomen: soft, non tender Laboratory Tests Test 04/13/18 02:56 White Blood Count 7.4 K/UL (4.8-10.8) Red Blood Count 4.15 M/UL (4.20-5.40) L Hemoglobin 11.6 G/DL (12.0-16.0) L Hematocrit 35.2 % (37.0-47.0) L Mean Corpuscular Volume 85 FL (80-99) Mean Corpuscular Hemoglobin 28.0 PG (27.0-31.0) Mean Corpuscular Hemoglobin Concent 33.1 G/DL (32.0-36.0) Red Cell Distribution Width 15.3 % (11.6-14.8) H Platelet Count 182 K/UL (150-450) Mean Platelet Volume 7.6 FL (6.5-10.1) Neutrophils (%) (Auto) 71.6 % (45.0-75.0) Lymphocytes (%) (Auto) 16.4 % (20.0-45.0) L Monocytes (%) (Auto) 8.5 % (1.0-10.0) Eosinophils (%) (Auto) 2.7 % (0.0-3.0) Basophils (%) (Auto) 0.8 % (0.0-2.0) Sodium Level 141 MMOL/L (136-145) Potassium Level 3.4 MMOL/L (3.5-5.1) L Chloride Level 99 MMOL/L (98-107) Carbon Dioxide Level 39 MMOL/L (21-32) H Anion Gap 4 mmol/L (5-15) L Blood Urea Nitrogen 7 mg/dL (7-18) Creatinine 0.6 MG/DL (0.55-1.30) Estimat Glomerular Filtration Rate mL/min (>60) Glucose Level 83 MG/DL (74-106) Calcium Level 8.7 MG/DL (8.5-10.1) Pro-B-Type Natriuretic Peptide 3429 pg/mL (0-125) H Current Medications Medications (Trade) Dose Ordered Sig/Ibrahima Route PRN Reason Start Time Stop Time Status Last Admin Dose Admin Acetaminophen (Tylenol) 650 mg Q4H PRN ORAL Fever (temp >100.3) 04/11/18 12:45 05/04/18 08:44 04/12/18 18:10 Acetaminophen (Tylenol) 650 mg Q4H PRN ORAL Mild Pain 04/12/18 00:45 05/12/18 00:44 04/12/18 00:44 Amiodarone HCl (Cordarone) 200 mg DAILY NG 04/12/18 09:00 05/05/18 08:59 04/13/18 08:18 Apixaban (Eliquis) 5 mg Q12HR ORAL 04/11/18 21:00 05/04/18 20:59 04/13/18 08:18 Dextrose (Dextrose 50%) 25 ml Q30M PRN IV Hypoglycemia 04/11/18 12:45 05/04/18 08:44 Dextrose (Dextrose 50%) 50 ml Q30M PRN IV Hypoglycemia 04/11/18 12:30 05/04/18 10:29 Diltiazem HCl (Cardizem) 90 mg EVERY 8 HOURS NG 04/11/18 14:00 05/04/18 21:59 04/13/18 06:12 Doxycycline Monohydrate (Vibramycin) 100 mg EVERY 12 HOURS ORAL 04/11/18 21:00 04/13/18 12:59 04/13/18 08:18 Furosemide (Lasix) 40 mg EVERY 12 HOURS IV 04/11/18 21:00 05/04/18 21:59 04/13/18 08:19 Haloperidol Lactate (Haldol) 5 mg Q6H PRN IM Agitation 04/11/18 13:00 05/06/18 12:45 04/12/18 20:09 Ipratropium [place] (Atrovent) 500 mcg Q6HRT HHN 04/11/18 13:00 04/15/18 00:59 04/13/18 07:51 Lansoprazole (Prevacid) 30 mg DAILY GT 04/12/18 09:00 05/12/18 08:59 04/13/18 08:18 Ondansetron HCl (Zofran) 4 mg Q6H PRN IVP Nausea & Vomiting 04/11/18 14:45 05/04/18 08:44 Polyethylene Glycol (Miralax) 17 gm DAILYPRN PRN ORAL Constipation 04/12/18 08:45 05/04/18 08:44 Juan Moeller MD Apr 13, 2018 11:14
--- NOTE | 2018-04-13 11:39 | Pulmonology Progress Note ---
Assessment/Plan Problems: (1) Respiratory failure, acute (2) Acute diastolic CHF (congestive heart failure) (3) COPD (chronic obstructive pulmonary disease) (4) Atrial fibrillation with RVR (5) Major depression (6) Bipolar depression Assessment/Plan improving continue lasix bid check electrolytes respiratory treatment watch bun/creatinine transfer to telemetry unit dvt prophylaxis. Subjective ROS Limited/Unobtainable: No Interval Events: off bipap Constitutional: Reports: no symptoms HEENT: Repors: no symptoms Allergies: Coded Allergies: PIPERACILLIN (Unverified Allergy, Unknown, 03/10/18) TAZOBACTAM (Unverified Allergy, Unknown, 03/10/18) Objective Last 24 Hour Vital Signs Date Time Temp Pulse Resp B/P (MAP) Pulse Ox O2 Delivery O2 Flow Rate FiO2 04/13/18 08:00 63 04/13/18 08:00 97.3 67 22 144/70 (94) 97 04/13/18 08:00 Nasal Cannula 2.0 Nasal Cannula 2.0 04/13/18 07:59 58 20 98 Nasal Cannula 2.0 28 04/13/18 07:50 61 20 96 Nasal Cannula 2.0 28 04/13/18 06:12 62 138/67 04/13/18 06:00 2.0 04/13/18 05:31 52 26 96 Facial 35 04/13/18 04:00 60 04/13/18 04:00 98.4 60 24 138/67 (90) 98 04/13/18 04:00 28 04/13/18 04:00 Nasal Cannula 2.0 Nasal Cannula 2.0 04/13/18 01:34 58 24 100 Nasal Cannula 2.0 28 04/13/18 01:19 55 21 96 Nasal Cannula 2.0 28 04/13/18 00:00 28 04/13/18 00:00 Nasal Cannula 2.0 Nasal Cannula 2.0 04/13/18 00:00 97.6 65 20 122/50 (74) 98 04/12/18 23:20 69 04/12/18 22:55 54 28 95 Facial 35 04/12/18 21:29 65 28 95 Facial 35 04/12/18 21:20 28 04/12/18 21:17 75 141/58 04/12/18 21:00 Nasal Cannula 2.0 Nasal Cannula 2.0 04/12/18 20:00 97.6 65 22 158/84 (108) 99 04/12/18 20:00 76 04/12/18 20:00 2.0 04/12/18 19:59 75 24 100 Nasal Cannula 2.0 28 04/12/18 19:56 72 24 96 Nasal Cannula 2.0 28 04/12/18 16:00 Nasal Cannula 2.0 Nasal Cannula 2.0 04/12/18 16:00 98.5 61 20 141/58 (85) 98 04/12/18 15:24 62 04/12/18 13:17 61 148/64 04/12/18 13:00 2.0 04/12/18 12:35 Nasal Cannula 3.0 32 04/12/18 12:35 Nasal Cannula 2.0 28 04/12/18 12:00 Nasal Cannula 2.0 Nasal Cannula 2.0 04/12/18 12:00 97.9 61 21 148/64 (92) 99 04/12/18 11:51 62 Intake and Output 04/12/18 04/13/18 18:59 06:59 Intake Total 410 ml 400 ml Output Total 950 ml 900 ml Balance -540 ml -500 ml Intake Oral 300 ml 400 ml IV Total 110 ml Output Urine Total 950 ml 900 ml # Bowel Movements 1 General Appearance: WD/WN HEENT: normocephalic, atraumatic Respiratory/Chest: chest wall non-tender, lungs clear Breasts: no masses Cardiovascular: normal rate Abdomen: normal bowel sounds, no organomegaly Genitourinary: normal external genitalia Extremities: no clubbing Skin: no rash Laboratory Tests 04/13/18 02:56: White Blood Count 7.4, Red Blood Count 4.15L, Hemoglobin 11.6L, Hematocrit 35.2L , Mean Corpuscular Volume 85, Mean Corpuscular Hemoglobin 28.0, Mean Corpuscular Hemoglobin Concent 33.1, Red Cell Distribution Width 15.3H, Platelet Count 182, Mean Platelet Volume 7.6, Neutrophils (%) (Auto) 71.6, Lymphocytes (%) (Auto) 16.4L, Monocytes (%) (Auto) 8.5, Eosinophils (%) (Auto) 2.7, Basophils (%) (Auto) 0.8, Sodium Level 141, Potassium Level 3.4L, Chloride Level 99, Carbon Dioxide Level 39H, Anion Gap 4L, Blood Urea Nitrogen 7, Creatinine 0.6, Estimat Glomerular Filtration Rate , Glucose Level 83, Calcium Level 8.7, Pro-B-Type Natriuretic Peptide 3429H Current Medications Medications (Trade) Dose Ordered Sig/Ibrahima Route PRN Reason Start Time Stop Time Status Last Admin Dose Admin Acetaminophen (Tylenol) 650 mg Q4H PRN ORAL Fever (temp >100.3) 04/11/18 12:45 05/04/18 08:44 04/12/18 18:10 Acetaminophen (Tylenol) 650 mg Q4H PRN ORAL Mild Pain 04/12/18 00:45 05/12/18 00:44 04/12/18 00:44 Amiodarone HCl (Cordarone) 200 mg DAILY NG 04/12/18 09:00 05/05/18 08:59 04/13/18 08:18 Apixaban (Eliquis) 5 mg Q12HR ORAL 04/11/18 21:00 05/04/18 20:59 04/13/18 08:18 Dextrose (Dextrose 50%) 25 ml Q30M PRN IV Hypoglycemia 04/11/18 12:45 05/04/18 08:44 Dextrose (Dextrose 50%) 50 ml Q30M PRN IV Hypoglycemia 04/11/18 12:30 05/04/18 10:29 Diltiazem HCl (Cardizem) 90 mg EVERY 8 HOURS NG 04/11/18 14:00 05/04/18 21:59 04/13/18 06:12 Doxycycline Monohydrate (Vibramycin) 100 mg EVERY 12 HOURS ORAL 04/11/18 21:00 04/13/18 12:59 04/13/18 08:18 Furosemide (Lasix) 40 mg EVERY 12 HOURS IV 04/11/18 21:00 05/04/18 21:59 04/13/18 08:19 Haloperidol Lactate (Haldol) 5 mg Q6H PRN IM Agitation 04/11/18 13:00 05/06/18 12:45 04/12/18 20:09 Ipratropium [place] (Atrovent) 500 mcg Q6HRT HHN 04/11/18 13:00 04/15/18 00:59 04/13/18 07:51 Lansoprazole (Prevacid) 30 mg DAILY GT 04/12/18 09:00 05/12/18 08:59 04/13/18 08:18 Ondansetron HCl (Zofran) 4 mg Q6H PRN IVP Nausea & Vomiting 04/11/18 14:45 05/04/18 08:44 Polyethylene Glycol (Miralax) 17 gm DAILYPRN PRN ORAL Constipation 04/12/18 08:45 05/04/18 08:44 Potassium Chloride 100 ml @ 50 mls/hr ONCE ONCE IVPB 04/13/18 12:00 04/13/18 13:59 UNV Potassium Chloride 100 ml @ 50 mls/hr ONCE ONCE IVPB 04/13/18 13:00 04/13/18 14:59 UNV Mendel Sierra MD Apr 13, 2018 11:39
[2018-04-13 12:00] VITALS: BP 132/68
--- NOTE | 2018-04-13 13:20 | Cardiac Electrophysiology PN ---
Assessment/Plan Assessment/Plan 1. Atrial flutter with rapid ventricular response. Rate is now controlled on Cardizem 90 mg every 8 hours and amiodarone 200 mg daily. On apixaban 5 mg bid 2. Status post Medtronic Micra leadless pacer implantation in 2016 at [facility]. 3. S/P Respiratory failure to diastolic dysfunction on Vent. EF of 55%. On Lasix 40 mg IV BID. 4. Hypertension, on Lasix and Cardizem. 5. Psychosis and schizophrenia, on Risperdal. DW RN Subjective Subjective In CHRISTOPHER in Atrial fib with controlled rate. Alert and responsive in NAD. Objective Last 24 Hour Vital Signs Date Time Temp Pulse Resp B/P (MAP) Pulse Ox O2 Delivery O2 Flow Rate FiO2 04/13/18 12:00 98.1 65 22 132/68 (89) 95 04/13/18 12:00 2.0 04/13/18 12:00 Nasal Cannula 2.0 Nasal Cannula 2.0 04/13/18 11:49 61 04/13/18 08:00 63 04/13/18 08:00 97.3 67 22 144/70 (94) 97 04/13/18 08:00 Nasal Cannula 2.0 Nasal Cannula 2.0 04/13/18 07:59 58 20 98 Nasal Cannula 2.0 28 04/13/18 07:50 61 20 96 Nasal Cannula 2.0 28 04/13/18 06:12 62 138/67 04/13/18 06:00 2.0 04/13/18 05:31 52 26 96 Facial 35 04/13/18 04:00 60 04/13/18 04:00 98.4 60 24 138/67 (90) 98 04/13/18 04:00 28 04/13/18 04:00 Nasal Cannula 2.0 Nasal Cannula 2.0 04/13/18 01:34 58 24 100 Nasal Cannula 2.0 28 04/13/18 01:19 55 21 96 Nasal Cannula 2.0 28 04/13/18 00:00 28 04/13/18 00:00 Nasal Cannula 2.0 Nasal Cannula 2.0 04/13/18 00:00 97.6 65 20 122/50 (74) 98 04/12/18 23:20 69 04/12/18 22:55 54 28 95 Facial 35 04/12/18 21:29 65 28 95 Facial 35 04/12/18 21:20 28 04/12/18 21:17 75 141/58 04/12/18 21:00 Nasal Cannula 2.0 Nasal Cannula 2.0 04/12/18 20:00 97.6 65 22 158/84 (108) 99 04/12/18 20:00 76 04/12/18 20:00 2.0 04/12/18 19:59 75 24 100 Nasal Cannula 2.0 28 04/12/18 19:56 72 24 96 Nasal Cannula 2.0 28 04/12/18 16:00 Nasal Cannula 2.0 Nasal Cannula 2.0 04/12/18 16:00 98.5 61 20 141/58 (85) 98 04/12/18 15:24 62 Intake and Output 04/12/18 04/13/18 18:59 06:59 Intake Total 410 ml 400 ml Output Total 950 ml 900 ml Balance -540 ml -500 ml Intake Oral 300 ml 400 ml IV Total 110 ml Output Urine Total 950 ml 900 ml # Bowel Movements 1 Laboratory Tests Test 04/13/18 02:56 04/13/18 11:57 White Blood Count 7.4 K/UL (4.8-10.8) Red Blood Count 4.15 M/UL (4.20-5.40) L Hemoglobin 11.6 G/DL (12.0-16.0) L Hematocrit 35.2 % (37.0-47.0) L Mean Corpuscular Volume 85 FL (80-99) Mean Corpuscular Hemoglobin 28.0 PG (27.0-31.0) Mean Corpuscular Hemoglobin Concent 33.1 G/DL (32.0-36.0) Red Cell Distribution Width 15.3 % (11.6-14.8) H Platelet Count 182 K/UL (150-450) Mean Platelet Volume 7.6 FL (6.5-10.1) Neutrophils (%) (Auto) 71.6 % (45.0-75.0) Lymphocytes (%) (Auto) 16.4 % (20.0-45.0) L Monocytes (%) (Auto) 8.5 % (1.0-10.0) Eosinophils (%) (Auto) 2.7 % (0.0-3.0) Basophils (%) (Auto) 0.8 % (0.0-2.0) Sodium Level 141 MMOL/L (136-145) Potassium Level 3.4 MMOL/L (3.5-5.1) L Chloride Level 99 MMOL/L (98-107) Carbon Dioxide Level 39 MMOL/L (21-32) H Anion Gap 4 mmol/L (5-15) L Blood Urea Nitrogen 7 mg/dL (7-18) Creatinine 0.6 MG/DL (0.55-1.30) Estimat Glomerular Filtration Rate mL/min (>60) Glucose Level 83 MG/DL (74-106) Calcium Level 8.7 MG/DL (8.5-10.1) Pro-B-Type Natriuretic Peptide 3429 pg/mL (0-125) H Arterial Blood pH 7.476 (7.350-7.450) Arterial Blood Partial Pressure CO2 52.1 mmHg (35.0-45.0) H Arterial Blood Partial Pressure O2 64.5 mmHg (75.0-100.0) L Arterial Blood HCO3 37.6 mmol/L (22.0-26.0) H Arterial Blood Oxygen Saturation 92.5 % (95-100) L Arterial Blood Base Excess 12.2 (-2-2) *H Ian Test Positive Objective HEAD AND NECK: No JVD on nasal cannula LUNGS: Coarse rhonchi. CARDIOVASCULAR: Irregular S1 and S2 with no gallop. ABDOMEN: Soft. EXTREMITIES: 1+ pitting edema. Yohan Milian MD Apr 13, 2018 13:20
[2018-04-13] MEDS: dilTIAZem HCl 90mg tab ORAL SCH ×3 (14:22→22:00)
[2018-04-13 16:00] VITALS: BP 125/53
--- NOTE | 2018-04-13 19:58 | Internal Med Progress Note ---
Subjective Date of Service: Apr 13, 2018 Physician Name Juan Dutta Attending Physician Yonathan Mendoza MD Current Medications Medications (Trade) Dose Ordered Sig/Ibrahima Route PRN Reason Start Time Stop Time Status Last Admin Dose Admin Acetaminophen (Tylenol) 650 mg Q4H PRN ORAL Fever (temp >100.3) 04/11/18 12:45 05/04/18 08:44 04/13/18 17:12 Acetaminophen (Tylenol) 650 mg Q4H PRN ORAL Mild Pain 04/12/18 00:45 05/12/18 00:44 04/12/18 00:44 Amiodarone HCl (Cordarone) 200 mg DAILY ORAL 04/14/18 09:00 05/05/18 08:59 Apixaban (Eliquis) 5 mg Q12HR ORAL 04/11/18 21:00 05/04/18 20:59 04/13/18 08:18 Dextrose (Dextrose 50%) 25 ml Q30M PRN IV Hypoglycemia 04/11/18 12:45 05/04/18 08:44 Dextrose (Dextrose 50%) 50 ml Q30M PRN IV Hypoglycemia 04/11/18 12:30 05/04/18 10:29 Diltiazem HCl (Cardizem) 90 mg EVERY 8 HOURS ORAL 04/13/18 14:00 05/04/18 21:59 04/13/18 14:22 Doxycycline Monohydrate (Vibramycin) 100 mg EVERY 12 HOURS ORAL 04/13/18 21:00 04/20/18 20:59 Furosemide (Lasix) 40 mg EVERY 12 HOURS IV 04/11/18 21:00 05/04/18 21:59 04/13/18 08:19 Haloperidol Lactate (Haldol) 5 mg Q6H PRN IM Agitation 04/11/18 13:00 05/06/18 12:45 04/12/18 20:09 Ipratropium [place] (Atrovent) 500 mcg Q6HRT HHN 04/11/18 13:00 04/15/18 00:59 04/13/18 19:16 Ondansetron HCl (Zofran) 4 mg Q6H PRN IVP Nausea & Vomiting 04/11/18 14:45 05/04/18 08:44 Pantoprazole (Protonix) 40 mg DAILY ORAL 04/14/18 09:00 05/14/18 08:59 Polyethylene Glycol (Miralax) 17 gm DAILYPRN PRN ORAL Constipation 04/12/18 08:45 05/04/18 08:44 Allergies: Coded Allergies: PIPERACILLIN (Unverified Allergy, Unknown, 03/10/18) TAZOBACTAM (Unverified Allergy, Unknown, 03/10/18) ROS Limited/Unobtainable: Yes Subjective 77 YO F admitted with respiratory failure and atrial flutter wit rapid ventricular rate. Now Legionella pneumonia. Cover for - Dr Mendoza. Tolerating nasal canula. CHRISTOPHER Objective Last Vital Signs Date Time Temp Pulse Resp B/P (MAP) Pulse Ox O2 Delivery O2 Flow Rate FiO2 04/13/18 19:38 60 20 98 Nasal Cannula 2.0 28 04/13/18 16:00 98.2 125/53 (77) Laboratory Tests Test 04/13/18 02:56 04/13/18 11:57 White Blood Count 7.4 K/UL (4.8-10.8) Red Blood Count 4.15 M/UL (4.20-5.40) L Hemoglobin 11.6 G/DL (12.0-16.0) L Hematocrit 35.2 % (37.0-47.0) L Mean Corpuscular Volume 85 FL (80-99) Mean Corpuscular Hemoglobin 28.0 PG (27.0-31.0) Mean Corpuscular Hemoglobin Concent 33.1 G/DL (32.0-36.0) Red Cell Distribution Width 15.3 % (11.6-14.8) H Platelet Count 182 K/UL (150-450) Mean Platelet Volume 7.6 FL (6.5-10.1) Neutrophils (%) (Auto) 71.6 % (45.0-75.0) Lymphocytes (%) (Auto) 16.4 % (20.0-45.0) L Monocytes (%) (Auto) 8.5 % (1.0-10.0) Eosinophils (%) (Auto) 2.7 % (0.0-3.0) Basophils (%) (Auto) 0.8 % (0.0-2.0) Sodium Level 141 MMOL/L (136-145) Potassium Level 3.4 MMOL/L (3.5-5.1) L Chloride Level 99 MMOL/L (98-107) Carbon Dioxide Level 39 MMOL/L (21-32) H Anion Gap 4 mmol/L (5-15) L Blood Urea Nitrogen 7 mg/dL (7-18) Creatinine 0.6 MG/DL (0.55-1.30) Estimat Glomerular Filtration Rate mL/min (>60) Glucose Level 83 MG/DL (74-106) Calcium Level 8.7 MG/DL (8.5-10.1) Pro-B-Type Natriuretic Peptide 3429 pg/mL (0-125) H Arterial Blood pH 7.476 (7.350-7.450) Arterial Blood Partial Pressure CO2 52.1 mmHg (35.0-45.0) H Arterial Blood Partial Pressure O2 64.5 mmHg (75.0-100.0) L Arterial Blood HCO3 37.6 mmol/L (22.0-26.0) H Arterial Blood Oxygen Saturation 92.5 % (95-100) L Arterial Blood Base Excess 12.2 (-2-2) *H Ian Test Positive Intake and Output 04/12/18 04/13/18 19:00 07:00 Intake Total 410 ml 400 ml Output Total 950 ml 900 ml Balance -540 ml -500 ml Intake Oral 300 ml 400 ml IV Total 110 ml Output Urine Total 950 ml 900 ml # Bowel Movements 1 Objective General Appearance: WD/WN, no apparent distress EENT: PERRL/EOMI, normal ENT inspection Neck: non-tender, normal alignment, supple Cardiovascular: normal peripheral pulses, regular rhythm, no gallop/murmur, no JVD, tachycardia Respiratory/Chest: nasal canula; chest wall non-tender, respiratory distress, crackles/rales, rhonchi - bilaterally, expiratory wheezing Abdomen: normal bowel sounds, non tender, soft, no organomegaly, no mass Extremities: normal range of motion, non-tender Skin: normal pigmentation, warm/dry Assessment/Plan Problem List: (1) Pneumonia Assessment & Plan: Legionella. Continue doxycycline and ceftriaxone (2) Atrial fibrillation with RVR Assessment & Plan: Cntinue amiodarone-See cardiology note. (3) CHF (congestive heart failure) (4) COPD (chronic obstructive pulmonary disease) Assessment & Plan: see pulmonary note. (5) Pacemaker (6) CAD (coronary artery disease) (7) Seizure disorder (8) Bipolar depression (9) Respiratory failure, acute Assessment & Plan: Continue vent per pulmonary (10) UTI (lower urinary tract infection) Assessment & Plan: Proteus. Continue ceftriaxone per ID Status: not improved Juan Dutta MD Apr 13, 2018 19:58
[2018-04-13 20:00] VITALS: BP 118/57
[2018-04-13] MEDS ORDERED: Haloperidol 5mg/ml Inj IM PRN (21:39)
[2018-04-13] MEDS ORDERED: Miralax 17gm pkt ORAL PRN (21:39)
[2018-04-14] VITALS: BP 116/57
--- NOTE | 2018-04-14 00:47 | General Progress Note ---
Assessment/Plan Problem List: (1) Schizophrenia ICD Codes: F20.9 - Schizophrenia, unspecified SNOMED: 16397971 (2) Encephalopathy acute Assessment & Plan: (1) Schizophrenia ICD Codes: F20.9 - Schizophrenia, unspecified SNOMED: 14237928 (2) Encephalopathy acute ICD Codes: G93.40 - Encephalopathy, unspecified SNOMED: 5939708 Status: unchanged Assessment/Plan Ativan IM prn haldol IM prn the pts Risperdal was discontinued ICD Codes: G93.40 - Encephalopathy, unspecified SNOMED: 1095315 Assessment/Plan Ativan IM prn haldol IM prn cont to monitor Subjective Date patient seen: Apr 13, 2018 Neurologic/Psychiatric: Reports: anxiety, depressed Allergies: Coded Allergies: PIPERACILLIN (Unverified Allergy, Unknown, 03/10/18) TAZOBACTAM (Unverified Allergy, Unknown, 03/10/18) Subjective the pt is more alert and interactive Objective Last 24 Hour Vital Signs Date Time Temp Pulse Resp B/P (MAP) Pulse Ox O2 Delivery O2 Flow Rate FiO2 04/13/18 21:37 62 125/53 04/13/18 20:00 4.0 04/13/18 20:00 98.4 60 20 118/57 (77) 98 04/13/18 19:38 60 20 98 Nasal Cannula 2.0 28 04/13/18 19:16 80 18 96 04/13/18 19:16 60 18 98 Nasal Cannula 4.0 36 04/13/18 19:14 62 04/13/18 17:25 70 20 96 04/13/18 16:00 4.0 04/13/18 16:00 Nasal Cannula 2.0 Nasal Cannula 2.0 04/13/18 16:00 98.2 62 18 125/53 (77) 95 04/13/18 15:30 60 04/13/18 15:08 65 22 95 04/13/18 14:22 65 132/68 04/13/18 13:55 67 20 97 Nasal Cannula 2.0 28 04/13/18 13:45 66 20 97 Nasal Cannula 4.0 36 04/13/18 12:30 67 20 94 04/13/18 12:00 98.1 65 22 132/68 (89) 95 04/13/18 12:00 2.0 04/13/18 12:00 Nasal Cannula 2.0 Nasal Cannula 2.0 04/13/18 11:49 61 04/13/18 10:50 64 18 95 04/13/18 09:24 63 18 98 04/13/18 08:00 63 04/13/18 08:00 97.3 67 22 144/70 (94) 97 04/13/18 08:00 Nasal Cannula 2.0 Nasal Cannula 2.0 04/13/18 07:59 58 20 98 Nasal Cannula 2.0 28 04/13/18 07:50 61 20 96 Nasal Cannula 2.0 28 04/13/18 06:12 62 138/67 04/13/18 06:00 2.0 04/13/18 05:31 52 26 96 Facial 35 04/13/18 04:00 60 04/13/18 04:00 98.4 60 24 138/67 (90) 98 04/13/18 04:00 28 04/13/18 04:00 Nasal Cannula 2.0 Nasal Cannula 2.0 04/13/18 01:34 58 24 100 Nasal Cannula 2.0 28 04/13/18 01:19 55 21 96 Nasal Cannula 2.0 28 Intake and Output 04/13/18 04/14/18 19:00 07:00 Intake Total 350 ml Output Total 1000 ml Balance -650 ml Intake Oral 350 ml Output Urine Total 1000 ml # Bowel Movements 1 Laboratory Tests 04/13/18 02:56: White Blood Count 7.4, Red Blood Count 4.15L, Hemoglobin 11.6L, Hematocrit 35.2L , Mean Corpuscular Volume 85, Mean Corpuscular Hemoglobin 28.0, Mean Corpuscular Hemoglobin Concent 33.1, Red Cell Distribution Width 15.3H, Platelet Count 182, Mean Platelet Volume 7.6, Neutrophils (%) (Auto) 71.6, Lymphocytes (%) (Auto) 16.4L, Monocytes (%) (Auto) 8.5, Eosinophils (%) (Auto) 2.7, Basophils (%) (Auto) 0.8, Sodium Level 141, Potassium Level 3.4L, Chloride Level 99, Carbon Dioxide Level 39H, Anion Gap 4L, Blood Urea Nitrogen 7, Creatinine 0.6, Estimat Glomerular Filtration Rate , Glucose Level 83, Calcium Level 8.7, Pro-B-Type Natriuretic Peptide 3429H 04/13/18 11:57: Arterial Blood pH 7.476H, Arterial Blood Partial Pressure CO2 52.1H, Arterial Blood Partial Pressure O2 64.5L, Arterial Blood HCO3 37.6H, Arterial Blood Oxygen Saturation 92.5L, Arterial Blood Base Excess 12.2*H, Ian Test Positive Height (Feet): 5 Height (Inches): 7.00 Weight (Pounds): 174 General Appearance: no apparent distress, alert, agitated Luiz Morrison MD Apr 14, 2018 00:47
[2018-04-14] MEDS ORDERED: Zolpidem 5mg tab ORAL PRN (01:30)
[2018-04-14] MEDS: Ipratropium 0.02% Inh Soln 2.5ml UD HHN SCH ×4 (01:34→20:10)
[2018-04-14 04:00] VITALS: BP 142/59
[2018-04-14] MEDS: dilTIAZem HCl 90mg tab ORAL SCH ×3 (06:30→22:00)
[2018-04-14 06:39] LABS: BASOPHILS % (AUTO) 1.9 % (0.0-2.0); EOSINOPHILS % (AUTO) 2.6 % (0.0-3.0); HEMATOCRIT 35.8 % (37.0-47.0); HEMOGLOBIN 11.7 G/DL (12.0-16.0); LYMPHOCYTES % (AUTO) 17.3 % (20.0-45.0); MEAN CORPUSCULAR VOLUME 85 FL (80-99); NEUTROPHILS % (AUTO) 69.2 % (45.0-75.0); PLATELET COUNT 180 K/UL (150-450); RED BLOOD COUNT 4.23 M/UL (4.20-5.40); RED CELL DISTRIBUTION WIDTH 14.9 % (11.6-14.8); WHITE BLOOD COUNT 5.8 K/UL (4.8-10.8)
[2018-04-14 07:22] LABS: ALBUMIN 2.8 G/DL (3.4-5.0); ALBUMIN/GLOBULIN RATIO 0.7 (1.0-2.7); ALKALINE PHOSPHATASE 60 U/L (46-116); ANION GAP 5 mmol/L (5-15); ASPARTATE AMINO TRANSFERASE 12 U/L (15-37); BILIRUBIN,TOTAL 0.5 MG/DL (0.2-1.0); BLOOD UREA NITROGEN 7 mg/dL (7-18); CARBON DIOXIDE 37 MMOL/L (21-32); CHLORIDE 98 MMOL/L (98-107); CREATININE 0.7 MG/DL (0.55-1.30); POTASSIUM 3.3 MMOL/L (3.5-5.1); SODIUM 140 MMOL/L (136-145)
[2018-04-14 07:37] LABS: ALANINE AMINOTRANSFERASE 16 U/L (12-78)
[2018-04-14 08:00] VITALS: BP 143/67
[2018-04-14] MEDS: Eliquis 2.5mg tablet ORAL SCH ×2 (08:43→20:51)
[2018-04-14] MEDS: Amiodarone 200mg tab ORAL SCH (08:43)
[2018-04-14] MEDS ORDERED: Amiodarone 200mg tab ORAL SCH (09:00)
--- NOTE | 2018-04-14 10:08 | Diagnostic Imaging Report ---
Indication: Shortness of breath Technique: One view of the chest Comparison: 04/13/2018 Findings: There is suggestion of increasing pleural fluid on the right. Stable pleural fluid on the left. Extensive underlying or calcific lesions are again demonstrated. The heart is enlarged. Degenerative changes of both shoulders again noted. Evidence of mid lumbar vertebral augmentation procedure again noted Impression: Slightly increased right pleural effusion, over one day. Other stable findings as noted, including large left pleural effusion.
--- NOTE | 2018-04-14 11:05 | Pulmonology Progress Note ---
Assessment/Plan Problems: (1) Respiratory failure, acute (2) Acute diastolic CHF (congestive heart failure) (3) COPD (chronic obstructive pulmonary disease) (4) Atrial fibrillation with RVR (5) Major depression (6) Bipolar depression Assessment/Plan cxr 04/14 better total of 6 liters negative fluid balance so far improving continue lasix bid check electrolytes respiratory treatment watch bun/creatinine transfer to telemetry unit dvt prophylaxis. Subjective ROS Limited/Unobtainable: No Constitutional: Reports: no symptoms HEENT: Repors: no symptoms Respiratory: Reports: no symptoms Cardiovascular: Reports: no symptoms Allergies: Coded Allergies: PIPERACILLIN (Unverified Allergy, Unknown, 03/10/18) TAZOBACTAM (Unverified Allergy, Unknown, 03/10/18) Objective Last 24 Hour Vital Signs Date Time Temp Pulse Resp B/P (MAP) Pulse Ox O2 Delivery O2 Flow Rate FiO2 04/14/18 09:00 Nasal Cannula 2.0 Nasal Cannula 2.0 04/14/18 08:00 2.0 04/14/18 08:00 98.2 61 20 143/67 (92) 97 04/14/18 08:00 65 04/14/18 07:52 65 16 100 Nasal Cannula 2.0 28 04/14/18 07:40 63 16 04/14/18 07:40 63 16 98 Nasal Cannula 2.0 28 04/14/18 06:30 76 116/57 04/14/18 04:00 2.0 04/14/18 04:00 76 04/14/18 04:00 98.0 72 22 142/59 (86) 95 04/14/18 01:46 60 16 100 Nasal Cannula 2.0 28 04/14/18 01:34 60 16 97 Nasal Cannula 2.0 28 04/14/18 00:00 60 04/14/18 00:00 2.0 04/14/18 00:00 98.1 60 20 116/57 (76) 97 04/13/18 21:37 62 125/53 04/13/18 20:00 4.0 04/13/18 20:00 98.4 60 20 118/57 (77) 98 04/13/18 19:38 60 20 98 Nasal Cannula 2.0 28 04/13/18 19:16 80 18 96 04/13/18 19:16 60 18 98 Nasal Cannula 4.0 36 04/13/18 19:14 62 04/13/18 17:25 70 20 96 04/13/18 16:00 4.0 04/13/18 16:00 Nasal Cannula 2.0 Nasal Cannula 2.0 04/13/18 16:00 98.2 62 18 125/53 (77) 95 04/13/18 15:30 60 04/13/18 15:08 65 22 95 04/13/18 14:22 65 132/68 04/13/18 13:55 67 20 97 Nasal Cannula 2.0 28 04/13/18 13:45 66 20 97 Nasal Cannula 4.0 36 04/13/18 12:30 67 20 94 04/13/18 12:00 98.1 65 22 132/68 (89) 95 04/13/18 12:00 2.0 04/13/18 12:00 Nasal Cannula 2.0 Nasal Cannula 2.0 04/13/18 11:49 61 Intake and Output 04/13/18 04/14/18 18:59 06:59 Intake Total 350 ml Output Total 1000 ml 800 ml Balance -650 ml -800 ml Intake Oral 350 ml Output Urine Total 1000 ml 800 ml # Bowel Movements 1 General Appearance: WD/WN HEENT: normocephalic, atraumatic Respiratory/Chest: chest wall non-tender, lungs clear Cardiovascular: normal peripheral pulses, normal rate Abdomen: normal bowel sounds, soft, non tender Genitourinary: normal external genitalia Extremities: no cyanosis Skin: no lesions 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 Laboratory Tests 04/13/18 11:57: Arterial Blood pH 7.476H, Arterial Blood Partial Pressure CO2 52.1H, Arterial Blood Partial Pressure O2 64.5L, Arterial Blood HCO3 37.6H, Arterial Blood Oxygen Saturation 92.5L, Arterial Blood Base Excess 12.2*H, Ian Test Positive 04/14/18 05:30: White Blood Count 5.8, Red Blood Count 4.23, Hemoglobin 11.7L, Hematocrit 35.8L , Mean Corpuscular Volume 85, Mean Corpuscular Hemoglobin 27.8, Mean Corpuscular Hemoglobin Concent 32.8, Red Cell Distribution Width 14.9H, Platelet Count 180, Mean Platelet Volume 7.3, Neutrophils (%) (Auto) 69.2, Lymphocytes (%) (Auto) 17.3L, Monocytes (%) (Auto) 9.0, Eosinophils (%) (Auto) 2.6, Basophils (%) (Auto) 1.9, Sodium Level 140, Potassium Level 3.3L, Chloride Level 98, Carbon Dioxide Level 37H, Anion Gap 5, Blood Urea Nitrogen 7, Creatinine 0.7, Estimat Glomerular Filtration Rate , Glucose Level 134H, Calcium Level 9.0, Total Bilirubin 0.5, Aspartate Amino Transf (AST/SGOT) 12L, Alanine Aminotransferase (ALT/SGPT) 16, Alkaline Phosphatase 60, Pro-B-Type Natriuretic Peptide 1483H, Total Protein 6.7, Albumin 2.8L, Globulin 3.9, Albumin/Globulin Ratio 0.7L Current Medications Medications (Trade) Dose Ordered Sig/Ibrahima Route PRN Reason Start Time Stop Time Status Last Admin Dose Admin Acetaminophen (Tylenol) 650 mg Q4H PRN ORAL Mild Pain 04/13/18 21:38 05/13/18 21:37 04/13/18 21:54 Acetaminophen (Tylenol) 650 mg Q4H PRN ORAL Fever (temp >100.3) 04/13/18 21:38 05/13/18 21:37 Amiodarone HCl (Cordarone) 200 mg DAILY ORAL 04/14/18 09:00 05/05/18 08:59 04/14/18 08:43 Apixaban (Eliquis) 5 mg Q12HR ORAL 04/14/18 09:00 05/14/18 08:59 04/14/18 08:43 Dextrose (Dextrose 50%) 25 ml Q30M PRN IV Hypoglycemia 04/13/18 21:45 05/04/18 08:44 Dextrose (Dextrose 50%) 50 ml Q30M PRN IV Hypoglycemia 04/13/18 22:00 05/04/18 10:29 Diltiazem HCl (Cardizem) 90 mg EVERY 8 HOURS ORAL 04/13/18 22:00 05/04/18 21:59 04/14/18 06:30 Doxycycline Monohydrate (Vibramycin) 100 mg EVERY 12 HOURS ORAL 04/14/18 09:00 04/21/18 08:59 04/14/18 08:42 Furosemide (Lasix) 40 mg EVERY 12 HOURS IV 04/14/18 09:00 05/14/18 08:59 04/14/18 08:43 Haloperidol Lactate (Haldol) 5 mg Q6H PRN IM Agitation 04/13/18 21:39 05/13/18 21:38 Ipratropium [place] (Atrovent) 500 mcg Q6HRT HHN 04/14/18 01:00 04/15/18 00:59 04/14/18 07:56 Ondansetron HCl (Zofran) 4 mg Q6H PRN IVP Nausea & Vomiting 04/13/18 21:39 05/13/18 21:38 Pantoprazole (Protonix) 40 mg DAILY ORAL 04/14/18 09:00 05/14/18 08:59 04/14/18 08:42 Polyethylene Glycol (Miralax) 17 gm DAILYPRN PRN ORAL Constipation 04/13/18 21:39 05/13/18 21:38 Zolpidem Tartrate (Ambien) 5 mg HSPRN PRN ORAL Insomnia 04/14/18 01:30 04/21/18 01:29 04/14/18 01:50 Mendel Sierra MD Apr 14, 2018 11:05
[2018-04-14 12:00] VITALS: BP 141/71
[2018-04-14] MEDS ORDERED: LORazepam 1mg tab ORAL PRN (13:30)
--- NOTE | 2018-04-14 15:48 | Cardiac Electrophysiology PN ---
Assessment/Plan Assessment/Plan 1. Atrial flutter with rapid ventricular response. Rate is controlled on Cardizem 90 mg tid and amiodarone 200 mg daily. On apixaban 5 mg bid 2. Status post Medtronic Micra leadless pacer implantation in 2016 at [facility]. 3. S/P Respiratory failure to diastolic dysfunction on Vent. EF of 55%. Change Lasix to 40 mg IV daily 4. Hypertension, on Lasix and Cardizem. 5. Psychosis and schizophrenia, on Risperdal. DYLAN RN Subjective Subjective Transferred to [facility], in Atrial fib with controlled rate. Alert and responsive in NAD. No CP or SOB Objective Last 24 Hour Vital Signs Date Time Temp Pulse Resp B/P (MAP) Pulse Ox O2 Delivery O2 Flow Rate FiO2 04/14/18 14:07 72 16 100 Nasal Cannula 2.0 28 04/14/18 13:58 68 16 98 Nasal Cannula 2.0 28 04/14/18 13:26 69 141/71 04/14/18 12:00 69 04/14/18 12:00 99.1 64 16 141/71 (94) 97 04/14/18 12:00 2.0 04/14/18 09:00 Nasal Cannula 2.0 Nasal Cannula 2.0 04/14/18 08:00 2.0 04/14/18 08:00 98.2 61 20 143/67 (92) 97 04/14/18 08:00 65 04/14/18 07:52 65 16 100 Nasal Cannula 2.0 28 04/14/18 07:40 63 16 04/14/18 07:40 63 16 98 Nasal Cannula 2.0 28 04/14/18 06:30 76 116/57 04/14/18 04:00 2.0 04/14/18 04:00 76 04/14/18 04:00 98.0 72 22 142/59 (86) 95 04/14/18 01:46 60 16 100 Nasal Cannula 2.0 28 04/14/18 01:34 60 16 97 Nasal Cannula 2.0 28 04/14/18 00:00 60 04/14/18 00:00 2.0 04/14/18 00:00 98.1 60 20 116/57 (76) 97 04/13/18 21:37 62 125/53 04/13/18 20:00 4.0 04/13/18 20:00 98.4 60 20 118/57 (77) 98 04/13/18 19:38 60 20 98 Nasal Cannula 2.0 28 04/13/18 19:16 80 18 96 04/13/18 19:16 60 18 98 Nasal Cannula 4.0 36 04/13/18 19:14 62 04/13/18 17:25 70 20 96 04/13/18 16:00 4.0 04/13/18 16:00 Nasal Cannula 2.0 Nasal Cannula 2.0 04/13/18 16:00 98.2 62 18 125/53 (77) 95 Intake and Output 04/13/18 04/14/18 18:59 06:59 Intake Total 350 ml Output Total 1000 ml 800 ml Balance -650 ml -800 ml Intake Oral 350 ml Output Urine Total 1000 ml 800 ml # Bowel Movements 1 Laboratory Tests Test 04/14/18 05:30 White Blood Count 5.8 K/UL (4.8-10.8) Red Blood Count 4.23 M/UL (4.20-5.40) Hemoglobin 11.7 G/DL (12.0-16.0) L Hematocrit 35.8 % (37.0-47.0) L Mean Corpuscular Volume 85 FL (80-99) Mean Corpuscular Hemoglobin 27.8 PG (27.0-31.0) Mean Corpuscular Hemoglobin Concent 32.8 G/DL (32.0-36.0) Red Cell Distribution Width 14.9 % (11.6-14.8) H Platelet Count 180 K/UL (150-450) Mean Platelet Volume 7.3 FL (6.5-10.1) Neutrophils (%) (Auto) 69.2 % (45.0-75.0) Lymphocytes (%) (Auto) 17.3 % (20.0-45.0) L Monocytes (%) (Auto) 9.0 % (1.0-10.0) Eosinophils (%) (Auto) 2.6 % (0.0-3.0) Basophils (%) (Auto) 1.9 % (0.0-2.0) Sodium Level 140 MMOL/L (136-145) Potassium Level 3.3 MMOL/L (3.5-5.1) L Chloride Level 98 MMOL/L (98-107) Carbon Dioxide Level 37 MMOL/L (21-32) H Anion Gap 5 mmol/L (5-15) Blood Urea Nitrogen 7 mg/dL (7-18) Creatinine 0.7 MG/DL (0.55-1.30) Estimat Glomerular Filtration Rate mL/min (>60) Glucose Level 134 MG/DL (74-106) H Calcium Level 9.0 MG/DL (8.5-10.1) Total Bilirubin 0.5 MG/DL (0.2-1.0) Aspartate Amino Transf (AST/SGOT) 12 U/L (15-37) L Alanine Aminotransferase (ALT/SGPT) 16 U/L (12-78) Alkaline Phosphatase 60 U/L (46-116) Pro-B-Type Natriuretic Peptide 1483 pg/mL (0-125) H Total Protein 6.7 G/DL (6.4-8.2) Albumin 2.8 G/DL (3.4-5.0) L Globulin 3.9 g/dL Albumin/Globulin Ratio 0.7 (1.0-2.7) L Objective HEAD AND NECK: No JVD LUNGS: Coarse rhonchi. CARDIOVASCULAR: Irregular S1 and S2 with no gallop. ABDOMEN: Soft. EXTREMITIES: 1+ pitting edema. Yohan Milian MD Apr 14, 2018 15:48
[2018-04-14 16:00] VITALS: BP 136/94
[2018-04-14] MEDS ORDERED: Tubing IV Secondary IV ONE (16:56)
--- NOTE | 2018-04-14 17:01 | Progress Note ---
DATE: 04/14/2018 SUBJECTIVE: The patient is more alert and more interactive. She is still confused about the date however she knows where she is. She recognized me. The patient is anxious and has difficulty sleeping. MENTAL STATUS EXAMINATION: The patient is more alert and oriented times self, place. Mood is dysphoric. Affect is constricted. Congruent with mood. Thought process is concrete. Thought content, no suicidal or homicidal ideation. ASSESSMENT: 1. Schizoaffective disorder by history. 2. Depression. 3. Anxiety. 4. Insomnia. PLAN: 1. The patient will be started on Remeron 7.5 mg at bedtime. 2. We will hold off on risperidone. 3. Provide the patient with reality orientation and supportive therapy. Luiz Morrison M.D. DR: Ailyn JOB#: [id number] CC:
--- NOTE | 2018-04-14 17:51 | Infectious Diseases Prog Note ---
Assessment/Plan Assessment/Plan ASSESSMENT: The patient is a 77-year-old female with: Febrile, low grade, SP Normal white blood cells. UTI Proteus mirabilis. Pneumonia, Legionella 04/14 CXR: Slightly increased right pleural effusion, over one day. Other stable findings as noted, including large left pleural effusion 04/11 CXR: Interval improvement of aeration of the right lower lobe. Persistent left lower lobe infiltrate/aspiration and left effusion. Legionella Ur Ag: Neg, Legionella IgM + / IgG - Scx: No sig growth Flu screen negative SP VDRF, 04/10 Sp extubated 04/10 Sp V/Q: Neg Atrial flutter CHF COPD CAD Hypertension Seizure disorder Schizophrenia Depression History of intraventricular pacemaker implantation PLAN: -continue on Doxy d# /- -04/11 SP Rocephin day # 7 -04/07 Sp IV vancomycin d # 3 -Monitor CBC -Monitor BMP -Monitor chest x-ray Subjective Allergies: Coded Allergies: PIPERACILLIN (Unverified Allergy, Unknown, 03/10/18) TAZOBACTAM (Unverified Allergy, Unknown, 03/10/18) Subjective comfortable afebrile Objective Vital Signs Last 24 Hour Vital Signs Date Time Temp Pulse Resp B/P (MAP) Pulse Ox O2 Delivery O2 Flow Rate FiO2 04/14/18 16:00 63 04/14/18 16:00 2.0 04/14/18 16:00 98.9 61 16 136/94 (108) 95 04/14/18 14:07 72 16 100 Nasal Cannula 2.0 28 04/14/18 13:58 68 16 98 Nasal Cannula 2.0 28 04/14/18 13:26 69 141/71 04/14/18 12:00 69 04/14/18 12:00 99.1 64 16 141/71 (94) 97 04/14/18 12:00 2.0 04/14/18 09:00 Nasal Cannula 2.0 Nasal Cannula 2.0 04/14/18 08:00 2.0 04/14/18 08:00 98.2 61 20 143/67 (92) 97 04/14/18 08:00 65 04/14/18 07:52 65 16 100 Nasal Cannula 2.0 28 04/14/18 07:40 63 16 04/14/18 07:40 63 16 98 Nasal Cannula 2.0 28 04/14/18 06:30 76 116/57 04/14/18 04:00 2.0 04/14/18 04:00 76 04/14/18 04:00 98.0 72 22 142/59 (86) 95 04/14/18 01:46 60 16 100 Nasal Cannula 2.0 28 04/14/18 01:34 60 16 97 Nasal Cannula 2.0 28 04/14/18 00:00 60 04/14/18 00:00 2.0 04/14/18 00:00 98.1 60 20 116/57 (76) 97 04/13/18 21:37 62 125/53 04/13/18 20:00 4.0 04/13/18 20:00 98.4 60 20 118/57 (77) 98 04/13/18 19:38 60 20 98 Nasal Cannula 2.0 28 04/13/18 19:16 80 18 96 04/13/18 19:16 60 18 98 Nasal Cannula 4.0 36 04/13/18 19:14 62 Height (Feet): 5 Height (Inches): 7.00 Weight (Pounds): 94 HEENT: atraumatic Respiratory/Chest: no respiratory distress Cardiovascular: regular rhythm Laboratory Tests Test 04/14/18 05:30 White Blood Count 5.8 K/UL (4.8-10.8) Red Blood Count 4.23 M/UL (4.20-5.40) Hemoglobin 11.7 G/DL (12.0-16.0) L Hematocrit 35.8 % (37.0-47.0) L Mean Corpuscular Volume 85 FL (80-99) Mean Corpuscular Hemoglobin 27.8 PG (27.0-31.0) Mean Corpuscular Hemoglobin Concent 32.8 G/DL (32.0-36.0) Red Cell Distribution Width 14.9 % (11.6-14.8) H Platelet Count 180 K/UL (150-450) Mean Platelet Volume 7.3 FL (6.5-10.1) Neutrophils (%) (Auto) 69.2 % (45.0-75.0) Lymphocytes (%) (Auto) 17.3 % (20.0-45.0) L Monocytes (%) (Auto) 9.0 % (1.0-10.0) Eosinophils (%) (Auto) 2.6 % (0.0-3.0) Basophils (%) (Auto) 1.9 % (0.0-2.0) Sodium Level 140 MMOL/L (136-145) Potassium Level 3.3 MMOL/L (3.5-5.1) L Chloride Level 98 MMOL/L (98-107) Carbon Dioxide Level 37 MMOL/L (21-32) H Anion Gap 5 mmol/L (5-15) Blood Urea Nitrogen 7 mg/dL (7-18) Creatinine 0.7 MG/DL (0.55-1.30) Estimat Glomerular Filtration Rate mL/min (>60) Glucose Level 134 MG/DL (74-106) H Calcium Level 9.0 MG/DL (8.5-10.1) Total Bilirubin 0.5 MG/DL (0.2-1.0) Aspartate Amino Transf (AST/SGOT) 12 U/L (15-37) L Alanine Aminotransferase (ALT/SGPT) 16 U/L (12-78) Alkaline Phosphatase 60 U/L (46-116) Pro-B-Type Natriuretic Peptide 1483 pg/mL (0-125) H Total Protein 6.7 G/DL (6.4-8.2) Albumin 2.8 G/DL (3.4-5.0) L Globulin 3.9 g/dL Albumin/Globulin Ratio 0.7 (1.0-2.7) L Current Medications Medications (Trade) Dose Ordered Sig/Ibrahima Route PRN Reason Start Time Stop Time Status Last Admin Dose Admin Acetaminophen (Tylenol) 650 mg Q4H PRN ORAL Mild Pain 04/13/18 21:38 05/13/18 21:37 04/13/18 21:54 Acetaminophen (Tylenol) 650 mg Q4H PRN ORAL Fever (temp >100.3) 04/13/18 21:38 05/13/18 21:37 04/14/18 14:52 Amiodarone HCl (Cordarone) 200 mg DAILY ORAL 04/14/18 09:00 05/05/18 08:59 04/14/18 08:43 Apixaban (Eliquis) 5 mg Q12HR ORAL 04/14/18 09:00 05/14/18 08:59 04/14/18 08:43 Dextrose (Dextrose 50%) 25 ml Q30M PRN IV Hypoglycemia 04/13/18 21:45 05/04/18 08:44 Dextrose (Dextrose 50%) 50 ml Q30M PRN IV Hypoglycemia 04/13/18 22:00 05/04/18 10:29 Diltiazem HCl (Cardizem) 90 mg EVERY 8 HOURS ORAL 04/13/18 22:00 05/04/18 21:59 04/14/18 13:26 Doxycycline Monohydrate (Vibramycin) 100 mg EVERY 12 HOURS ORAL 04/14/18 09:00 04/21/18 08:59 04/14/18 08:42 Furosemide (Lasix) 40 mg DAILY IV 04/15/18 09:00 05/14/18 08:59 Haloperidol Lactate (Haldol) 5 mg Q6H PRN IM Agitation 04/13/18 21:39 05/13/18 21:38 Ipratropium [place] (Atrovent) 500 mcg Q6HRT HHN 04/14/18 01:00 04/15/18 00:59 04/14/18 13:59 Lorazepam (Ativan) 2 mg Q6H PRN ORAL For Anxiety 04/14/18 13:30 04/21/18 13:29 Mirtazapine (Remeron) 7.5 mg BEDTIME PRN ORAL insomnia 04/14/18 21:00 05/14/18 20:59 Ondansetron HCl (Zofran) 4 mg Q6H PRN IVP Nausea & Vomiting 04/13/18 21:39 05/13/18 21:38 Pantoprazole (Protonix) 40 mg DAILY ORAL 04/14/18 09:00 05/14/18 08:59 04/14/18 08:42 Polyethylene Glycol (Miralax) 17 gm DAILYPRN PRN ORAL Constipation 04/13/18 21:39 05/13/18 21:38 Juan Moeller MD Apr 14, 2018 17:51
--- NOTE | 2018-04-14 18:14 | Internal Med Progress Note ---
Subjective Date of Service: Apr 14, 2018 Physician Name LuzmariaJuan Attending Physician Yonathan Mendoza MD Current Medications Medications (Trade) Dose Ordered Sig/Ibrahima Route PRN Reason Start Time Stop Time Status Last Admin Dose Admin Acetaminophen (Tylenol) 650 mg Q4H PRN ORAL Mild Pain 04/13/18 21:38 05/13/18 21:37 04/13/18 21:54 Acetaminophen (Tylenol) 650 mg Q4H PRN ORAL Fever (temp >100.3) 04/13/18 21:38 05/13/18 21:37 04/14/18 14:52 Amiodarone HCl (Cordarone) 200 mg DAILY ORAL 04/14/18 09:00 05/05/18 08:59 04/14/18 08:43 Apixaban (Eliquis) 5 mg Q12HR ORAL 04/14/18 09:00 05/14/18 08:59 04/14/18 08:43 Dextrose (Dextrose 50%) 25 ml Q30M PRN IV Hypoglycemia 04/13/18 21:45 05/04/18 08:44 Dextrose (Dextrose 50%) 50 ml Q30M PRN IV Hypoglycemia 04/13/18 22:00 05/04/18 10:29 Diltiazem HCl (Cardizem) 90 mg EVERY 8 HOURS ORAL 04/13/18 22:00 05/04/18 21:59 04/14/18 13:26 Doxycycline Monohydrate (Vibramycin) 100 mg EVERY 12 HOURS ORAL 04/14/18 09:00 04/21/18 08:59 04/14/18 08:42 Furosemide (Lasix) 40 mg DAILY IV 04/15/18 09:00 05/14/18 08:59 Haloperidol Lactate (Haldol) 5 mg Q6H PRN IM Agitation 04/13/18 21:39 05/13/18 21:38 Ipratropium [place] (Atrovent) 500 mcg Q6HRT HHN 04/14/18 01:00 04/15/18 00:59 04/14/18 13:59 Lorazepam (Ativan) 2 mg Q6H PRN ORAL For Anxiety 04/14/18 13:30 04/21/18 13:29 Mirtazapine (Remeron) 7.5 mg BEDTIME PRN ORAL insomnia 04/14/18 21:00 05/14/18 20:59 Ondansetron HCl (Zofran) 4 mg Q6H PRN IVP Nausea & Vomiting 04/13/18 21:39 05/13/18 21:38 Pantoprazole (Protonix) 40 mg DAILY ORAL 04/14/18 09:00 05/14/18 08:59 04/14/18 08:42 Polyethylene Glycol (Miralax) 17 gm DAILYPRN PRN ORAL Constipation 04/13/18 21:39 05/13/18 21:38 Allergies: Coded Allergies: PIPERACILLIN (Unverified Allergy, Unknown, 03/10/18) TAZOBACTAM (Unverified Allergy, Unknown, 03/10/18) ROS Limited/Unobtainable: No Constitutional: Reports: no symptoms HEENT: Reports: no symptoms Cardiovascular: Reports: no symptoms Respiratory: Reports: cough Gastrointestinal/Abdominal: Reports: no symptoms Genitourinary: Reports: no symptoms Neurologic/Psychiatric: Reports: no symptoms Subjective 77 YO F admitted with respiratory failure and atrial flutter wit rapid ventricular rate. Now Legionella pneumonia. Cover for - Dr Mendoza. Tolerating nasal canula. Objective Last Vital Signs Date Time Temp Pulse Resp B/P (MAP) Pulse Ox O2 Delivery O2 Flow Rate FiO2 04/14/18 16:00 63 04/14/18 16:00 2.0 04/14/18 16:00 98.9 16 136/94 (108) 95 04/14/18 14:07 Nasal Cannula 28 Laboratory Tests Test 04/14/18 05:30 White Blood Count 5.8 K/UL (4.8-10.8) Red Blood Count 4.23 M/UL (4.20-5.40) Hemoglobin 11.7 G/DL (12.0-16.0) L Hematocrit 35.8 % (37.0-47.0) L Mean Corpuscular Volume 85 FL (80-99) Mean Corpuscular Hemoglobin 27.8 PG (27.0-31.0) Mean Corpuscular Hemoglobin Concent 32.8 G/DL (32.0-36.0) Red Cell Distribution Width 14.9 % (11.6-14.8) H Platelet Count 180 K/UL (150-450) Mean Platelet Volume 7.3 FL (6.5-10.1) Neutrophils (%) (Auto) 69.2 % (45.0-75.0) Lymphocytes (%) (Auto) 17.3 % (20.0-45.0) L Monocytes (%) (Auto) 9.0 % (1.0-10.0) Eosinophils (%) (Auto) 2.6 % (0.0-3.0) Basophils (%) (Auto) 1.9 % (0.0-2.0) Sodium Level 140 MMOL/L (136-145) Potassium Level 3.3 MMOL/L (3.5-5.1) L Chloride Level 98 MMOL/L (98-107) Carbon Dioxide Level 37 MMOL/L (21-32) H Anion Gap 5 mmol/L (5-15) Blood Urea Nitrogen 7 mg/dL (7-18) Creatinine 0.7 MG/DL (0.55-1.30) Estimat Glomerular Filtration Rate mL/min (>60) Glucose Level 134 MG/DL (74-106) H Calcium Level 9.0 MG/DL (8.5-10.1) Total Bilirubin 0.5 MG/DL (0.2-1.0) Aspartate Amino Transf (AST/SGOT) 12 U/L (15-37) L Alanine Aminotransferase (ALT/SGPT) 16 U/L (12-78) Alkaline Phosphatase 60 U/L (46-116) Pro-B-Type Natriuretic Peptide 1483 pg/mL (0-125) H Total Protein 6.7 G/DL (6.4-8.2) Albumin 2.8 G/DL (3.4-5.0) L Globulin 3.9 g/dL Albumin/Globulin Ratio 0.7 (1.0-2.7) L Intake and Output 04/13/18 04/14/18 19:00 07:00 Intake Total 350 ml Output Total 1000 ml 800 ml Balance -650 ml -800 ml Intake Oral 350 ml Output Urine Total 1000 ml 800 ml # Bowel Movements 1 Objective General Appearance: WD/WN, no apparent distress EENT: PERRL/EOMI, normal ENT inspection Neck: non-tender, normal alignment, supple Cardiovascular: normal peripheral pulses, regular rhythm, no gallop/murmur, no JVD, tachycardia Respiratory/Chest: nasal canula; chest wall non-tender, respiratory distress, crackles/rales, rhonchi - bilaterally, expiratory wheezing Abdomen: normal bowel sounds, non tender, soft, no organomegaly, no mass Extremities: normal range of motion, non-tender Skin: normal pigmentation, warm/dry Assessment/Plan Problem List: (1) Pneumonia Assessment & Plan: Legionella. Continue doxycycline and ceftriaxone (2) Atrial fibrillation with RVR Assessment & Plan: Cntinue amiodarone-See cardiology note. (3) CHF (congestive heart failure) (4) COPD (chronic obstructive pulmonary disease) Assessment & Plan: see pulmonary note. (5) Pacemaker (6) CAD (coronary artery disease) (7) Seizure disorder (8) Bipolar depression (9) Respiratory failure, acute Assessment & Plan: Continue vent per pulmonary (10) UTI (lower urinary tract infection) Assessment & Plan: Proteus. Continue ceftriaxone per ID Status: not improved Juan Dutta MD Apr 14, 2018 18:14
[2018-04-14 20:00] VITALS: BP 129/62
[2018-04-15] VITALS: BP 150/81
[2018-04-15 04:00] VITALS: BP 151/72
[2018-04-15] MEDS: dilTIAZem HCl 90mg tab ORAL SCH ×3 (05:59→21:12)
[2018-04-15 08:00] VITALS: BP 149/63
[2018-04-15] MEDS: Ipratropium 0.02% Inh Soln 2.5ml UD HHN SCH ×3 (08:00→19:10)
[2018-04-15 08:02] LABS: BASOPHILS % (AUTO) 1.7 % (0.0-2.0); EOSINOPHILS % (AUTO) 2.2 % (0.0-3.0); HEMATOCRIT 39.4 % (37.0-47.0); HEMOGLOBIN 12.9 G/DL (12.0-16.0); LYMPHOCYTES % (AUTO) 13.1 % (20.0-45.0); MEAN CORPUSCULAR VOLUME 85 FL (80-99); MONOCYTES % (AUTO) 8.2 % (1.0-10.0); NEUTROPHILS % (AUTO) 74.7 % (45.0-75.0); PLATELET COUNT 204 K/UL (150-450); RED BLOOD COUNT 4.63 M/UL (4.20-5.40); RED CELL DISTRIBUTION WIDTH 15.5 % (11.6-14.8)
[2018-04-15 08:22] LABS: ANION GAP 3 mmol/L (5-15); BLOOD UREA NITROGEN 8 mg/dL (7-18); CALCIUM 9.2 MG/DL (8.5-10.1); CARBON DIOXIDE 37 MMOL/L (21-32); CHLORIDE 99 MMOL/L (98-107); CREATININE 0.6 MG/DL (0.55-1.30); POTASSIUM 4.1 MMOL/L (3.5-5.1); SODIUM 139 MMOL/L (136-145)
[2018-04-15] MEDS: Eliquis 2.5mg tablet ORAL SCH ×2 (08:51→21:11)
[2018-04-15] MEDS: Amiodarone 200mg tab ORAL SCH (08:51)
--- NOTE | 2018-04-15 11:16 | Pulmonology Progress Note ---
Assessment/Plan Problems: (1) Respiratory failure, acute (2) Acute diastolic CHF (congestive heart failure) (3) COPD (chronic obstructive pulmonary disease) (4) Atrial fibrillation with RVR (5) Major depression (6) Bipolar depression Assessment/Plan looks better total of 6.6 liters negative fluid balance so far improving bun/creatinine are NOT rising yet continue lasix bid check electrolytes respiratory treatment watch bun/creatinine keep in telemetry unit dvt prophylaxis. Subjective ROS Limited/Unobtainable: No Interval Events: doing better Allergies: Coded Allergies: PIPERACILLIN (Unverified Allergy, Unknown, 03/10/18) TAZOBACTAM (Unverified Allergy, Unknown, 03/10/18) Objective Last 24 Hour Vital Signs Date Time Temp Pulse Resp B/P (MAP) Pulse Ox O2 Delivery O2 Flow Rate FiO2 04/15/18 08:11 80 20 100 Nasal Cannula 2.0 28 04/15/18 08:00 71 16 98 Nasal Cannula 2.0 28 04/15/18 08:00 98.2 62 20 149/63 (91) 95 04/15/18 08:00 63 04/15/18 08:00 2.0 04/15/18 05:59 82 151/72 04/15/18 05:15 97.3 04/15/18 04:00 97.3 68 16 151/72 (98) 97 04/15/18 04:00 82 04/15/18 04:00 2.0 04/15/18 01:44 Nasal Cannula 2.0 28 04/15/18 01:43 Nasal Cannula 2.0 28 04/15/18 00:03 67 20 98 04/15/18 00:00 2.0 04/15/18 00:00 62 04/15/18 00:00 97.5 67 16 150/81 (104) 98 04/14/18 22:00 52 129/62 04/14/18 21:00 Nasal Cannula 2.0 Nasal Cannula 2.0 04/14/18 20:19 85 20 100 Nasal Cannula 2.0 28 04/14/18 20:06 62 20 97 Nasal Cannula 2.0 28 04/14/18 20:00 2.0 04/14/18 20:00 62 04/14/18 20:00 97.5 65 16 129/62 (84) 91 11/13/18 16:00 63 04/14/18 16:00 2.0 04/14/18 16:00 98.9 61 16 136/94 (108) 95 04/14/18 14:07 72 16 100 Nasal Cannula 2.0 28 04/14/18 13:58 68 16 98 Nasal Cannula 2.0 28 04/14/18 13:26 69 141/71 04/14/18 12:00 69 04/14/18 12:00 99.1 64 16 141/71 (94) 97 04/14/18 12:00 2.0 Intake and Output 04/14/18 04/15/18 19:00 07:00 Intake Total 360 ml 200 ml Output Total 550 ml 300 ml Balance -190 ml -100 ml Intake Oral 360 ml 200 ml Output Urine Total 550 ml 300 ml # Voids 2 # Bowel Movements 2 General Appearance: WD/WN HEENT: normocephalic, atraumatic Respiratory/Chest: chest wall non-tender, lungs clear Cardiovascular: normal peripheral pulses, normal rate Abdomen: normal bowel sounds, no organomegaly Extremities: no cyanosis Skin: no rash Neurologic/Psychiatric: nurse wound II-XII grossly normal Laboratory Tests 04/15/18 07:10: White Blood Count 7.0, Red Blood Count 4.63, Hemoglobin 12.9, Hematocrit 39.4, Mean Corpuscular Volume 85, Mean Corpuscular Hemoglobin 27.9, Mean Corpuscular Hemoglobin Concent 32.8, Red Cell Distribution Width 15.5H, Platelet Count 204, Mean Platelet Volume 7.0, Neutrophils (%) (Auto) 74.7, Lymphocytes (%) (Auto) 13.1L, Monocytes (%) (Auto) 8.2, Eosinophils (%) (Auto) 2.2, Basophils (%) (Auto ) 1.7, Sodium Level 139, Potassium Level 4.1, Chloride Level 99, Carbon Dioxide Level 37H, Anion Gap 3L, Blood Urea Nitrogen 8, Creatinine 0.6, Estimat Glomerular Filtration Rate , Glucose Level 110H, Calcium Level 9.2 Current Medications Medications (Trade) Dose Ordered Sig/Ibrahima Route PRN Reason Start Time Stop Time Status Last Admin Dose Admin Acetaminophen (Tylenol) 650 mg Q4H PRN ORAL Mild Pain 04/13/18 21:38 05/13/18 21:37 04/13/18 21:54 Acetaminophen (Tylenol) 650 mg Q4H PRN ORAL Fever (temp >100.3) 04/13/18 21:38 05/13/18 21:37 04/15/18 04:45 Amiodarone HCl (Cordarone) 200 mg DAILY ORAL 04/14/18 09:00 05/05/18 08:59 04/15/18 08:51 Apixaban (Eliquis) 5 mg Q12HR ORAL 04/14/18 09:00 05/14/18 08:59 04/15/18 08:51 Dextrose (Dextrose 50%) 25 ml Q30M PRN IV Hypoglycemia 04/13/18 21:45 05/04/18 08:44 Dextrose (Dextrose 50%) 50 ml Q30M PRN IV Hypoglycemia 04/13/18 22:00 05/04/18 10:29 Diltiazem HCl (Cardizem) 90 mg EVERY 8 HOURS ORAL 04/13/18 22:00 05/04/18 21:59 04/15/18 05:59 Doxycycline Monohydrate (Vibramycin) 100 mg EVERY 12 HOURS ORAL 04/14/18 09:00 04/21/18 08:59 04/15/18 08:51 Furosemide (Lasix) 40 mg DAILY IV 04/15/18 09:00 05/14/18 08:59 04/15/18 08:52 Haloperidol Lactate (Haldol) 5 mg Q6H PRN IM Agitation 04/13/18 21:39 05/13/18 21:38 Ipratropium [place] (Atrovent) 500 mcg Q6HRT HHN 04/15/18 07:00 04/20/18 06:59 04/15/18 08:00 Lorazepam (Ativan) 2 mg Q6H PRN ORAL For Anxiety 04/14/18 13:30 04/21/18 13:29 Mirtazapine (Remeron) 7.5 mg BEDTIME PRN ORAL insomnia 04/14/18 21:00 05/14/18 20:59 04/14/18 23:08 Ondansetron HCl (Zofran) 4 mg Q6H PRN IVP Nausea & Vomiting 04/13/18 21:39 05/13/18 21:38 Pantoprazole (Protonix) 40 mg DAILY ORAL 04/14/18 09:00 05/14/18 08:59 04/15/18 08:52 Polyethylene Glycol (Miralax) 17 gm DAILYPRN PRN ORAL Constipation 04/13/18 21:39 05/13/18 21:38 Mendel Sierra MD Apr 15, 2018 11:16
[2018-04-15 12:00] VITALS: BP 134/67
--- NOTE | 2018-04-15 13:20 | Cardiac Electrophysiology PN ---
Assessment/Plan Assessment/Plan 1. Atrial flutter with rapid ventricular response. Rate is controlled on Cardizem 90 mg tid and amiodarone 200 mg daily. On apixaban 5 mg bid. Occasionally V paced 2. Status post Medtronic Micra leadless pacer implantation in [address] [facility]. 3. S/P Respiratory failure to diastolic dysfunction on Vent. EF of 55%. On Lasix 40 mg IV daily 4. Hypertension, on Lasix and Cardizem. 5. Psychosis and schizophrenia, on Risperdal. DW RN Subjective Subjective Remained in Atrial fib with controlled rate. Alert and responsive in NAD. No CP or SOB. DC planning in progress Objective Last 24 Hour Vital Signs Date Time Temp Pulse Resp B/P (MAP) Pulse Ox O2 Delivery O2 Flow Rate FiO2 04/15/18 12:07 2.0 04/15/18 12:00 97.5 63 20 134/67 (89) 97 04/15/18 12:00 64 04/15/18 09:00 Nasal Cannula 2.0 04/15/18 08:11 80 20 100 Nasal Cannula 2.0 28 04/15/18 08:00 71 16 98 Nasal Cannula 2.0 28 04/15/18 08:00 98.2 62 20 149/63 (91) 95 04/15/18 08:00 63 04/15/18 08:00 2.0 04/15/18 05:59 82 151/72 04/15/18 05:15 97.3 04/15/18 04:00 97.3 68 16 151/72 (98) 97 04/15/18 04:00 82 04/15/18 04:00 2.0 04/15/18 01:44 Nasal Cannula 2.0 28 04/15/18 01:43 Nasal Cannula 2.0 28 04/15/18 00:03 67 20 98 04/15/18 00:00 2.0 04/15/18 00:00 62 04/15/18 00:00 97.5 67 16 150/81 (104) 98 04/14/18 22:00 52 129/62 04/14/18 21:00 Nasal Cannula 2.0 Nasal Cannula 2.0 04/14/18 20:19 85 20 100 Nasal Cannula 2.0 28 04/14/18 20:06 62 20 97 Nasal Cannula 2.0 28 04/14/18 20:00 2.0 04/14/18 20:00 62 04/14/18 20:00 97.5 65 16 129/62 (84) 91 04/14/18 16:00 63 04/14/18 16:00 2.0 04/14/18 16:00 98.9 61 16 136/94 (108) 95 04/14/18 14:07 72 16 100 Nasal Cannula 2.0 28 04/14/18 13:58 68 16 98 Nasal Cannula 2.0 28 04/14/18 13:26 69 141/71 Intake and Output 04/14/18 04/15/18 19:00 07:00 Intake Total 360 ml 200 ml Output Total 550 ml 300 ml Balance -190 ml -100 ml Intake Oral 360 ml 200 ml Output Urine Total 550 ml 300 ml # Voids 2 # Bowel Movements 2 Laboratory Tests Test 04/15/18 07:10 White Blood Count 7.0 K/UL (4.8-10.8) Red Blood Count 4.63 M/UL (4.20-5.40) Hemoglobin 12.9 G/DL (12.0-16.0) Hematocrit 39.4 % (37.0-47.0) Mean Corpuscular Volume 85 FL (80-99) Mean Corpuscular Hemoglobin 27.9 PG (27.0-31.0) Mean Corpuscular Hemoglobin Concent 32.8 G/DL (32.0-36.0) Red Cell Distribution Width 15.5 % (11.6-14.8) H Platelet Count 204 K/UL (150-450) Mean Platelet Volume 7.0 FL (6.5-10.1) Neutrophils (%) (Auto) 74.7 % (45.0-75.0) Lymphocytes (%) (Auto) 13.1 % (20.0-45.0) L Monocytes (%) (Auto) 8.2 % (1.0-10.0) Eosinophils (%) (Auto) 2.2 % (0.0-3.0) Basophils (%) (Auto) 1.7 % (0.0-2.0) Sodium Level 139 MMOL/L (136-145) Potassium Level 4.1 MMOL/L (3.5-5.1) Chloride Level 99 MMOL/L (98-107) Carbon Dioxide Level 37 MMOL/L (21-32) H Anion Gap 3 mmol/L (5-15) L Blood Urea Nitrogen 8 mg/dL (7-18) Creatinine 0.6 MG/DL (0.55-1.30) Estimat Glomerular Filtration Rate mL/min (>60) Glucose Level 110 MG/DL (74-106) H Calcium Level 9.2 MG/DL (8.5-10.1) Objective HEAD AND NECK: No JVD LUNGS: Coarse rhonchi. CARDIOVASCULAR: Irregular S1 and S2 with no gallop. ABDOMEN: Soft. EXTREMITIES: 1+ pitting edema. Yohan Milian MD Apr 15, 2018 13:20
[2018-04-15] MEDS ORDERED: Chloraseptic Spray 20mL Bottle ORAL PRN (15:15)
--- NOTE | 2018-04-15 15:16 | Infectious Diseases Prog Note ---
Assessment/Plan Assessment/Plan ASSESSMENT: The patient is a 77-year-old female with: Sore throat ( no evid of infectious process) Febrile, low grade, SP Normal white blood cells. UTI Proteus mirabilis. Pneumonia, Legionella 04/14 CXR: Slightly increased right pleural effusion, over one day. Other stable findings as noted, including large left pleural effusion 04/11 CXR: Interval improvement of aeration of the right lower lobe. Persistent left lower lobe infiltrate/aspiration and left effusion. Legionella Ur Ag: Neg, Legionella IgM + / IgG - Scx: No sig growth Flu screen negative SP VDRF, 04/10 Sp extubated 04/10 Sp V/Q: Neg Atrial flutter CHF COPD CAD Hypertension Seizure disorder Schizophrenia Depression History of intraventricular pacemaker implantation PLAN: -continue on Doxy d# -10 Chloraseptic spray ( sore throat) -04/11 SP Rocephin day # 7 -04/07 Sp IV vancomycin d # 3 -Monitor CBC -Monitor BMP -Monitor chest x-ray Subjective Allergies: Coded Allergies: PIPERACILLIN (Unverified Allergy, Unknown, 03/10/18) TAZOBACTAM (Unverified Allergy, Unknown, 03/10/18) Subjective sore throat Objective Vital Signs Last 24 Hour Vital Signs Date Time Temp Pulse Resp B/P (MAP) Pulse Ox O2 Delivery O2 Flow Rate FiO2 04/15/18 14:28 68 134/67 04/15/18 14:10 73 20 100 Nasal Cannula 2.0 28 04/15/18 13:53 68 16 98 Nasal Cannula 2.0 28 04/15/18 12:07 2.0 04/15/18 12:00 97.5 63 20 134/67 (89) 97 04/15/18 12:00 64 04/15/18 09:00 Nasal Cannula 2.0 04/15/18 08:11 80 20 100 Nasal Cannula 2.0 28 04/15/18 08:00 71 16 98 Nasal Cannula 2.0 28 04/15/18 08:00 98.2 62 20 149/63 (91) 95 04/15/18 08:00 63 04/15/18 08:00 2.0 04/15/18 05:59 82 151/72 04/15/18 05:15 97.3 04/15/18 04:00 97.3 68 16 151/72 (98) 97 04/15/18 04:00 82 04/15/18 04:00 2.0 04/15/18 01:44 Nasal Cannula 2.0 28 04/15/18 01:43 Nasal Cannula 2.0 28 04/15/18 00:03 67 20 98 04/15/18 00:00 2.0 04/15/18 00:00 62 04/15/18 00:00 97.5 67 16 150/81 (104) 98 04/14/18 22:00 52 129/62 04/14/18 21:00 Nasal Cannula 2.0 Nasal Cannula 2.0 04/14/18 20:19 85 20 100 Nasal Cannula 2.0 28 04/14/18 20:06 62 20 97 Nasal Cannula 2.0 28 04/14/18 20:00 2.0 04/14/18 20:00 62 04/14/18 20:00 97.5 65 16 129/62 (84) 91 04/14/18 16:00 63 04/14/18 16:00 2.0 04/14/18 16:00 98.9 61 16 136/94 (108) 95 Height (Feet): 5 Height (Inches): 7.00 Weight (Pounds): 198 HEENT: anicteric, pharynx normal Respiratory/Chest: no respiratory distress Cardiovascular: regularly irregular Abdomen: soft, non tender Laboratory Tests Test 04/15/18 07:10 White Blood Count 7.0 K/UL (4.8-10.8) Red Blood Count 4.63 M/UL (4.20-5.40) Hemoglobin 12.9 G/DL (12.0-16.0) Hematocrit 39.4 % (37.0-47.0) Mean Corpuscular Volume 85 FL (80-99) Mean Corpuscular Hemoglobin 27.9 PG (27.0-31.0) Mean Corpuscular Hemoglobin Concent 32.8 G/DL (32.0-36.0) Red Cell Distribution Width 15.5 % (11.6-14.8) H Platelet Count 204 K/UL (150-450) Mean Platelet Volume 7.0 FL (6.5-10.1) Neutrophils (%) (Auto) 74.7 % (45.0-75.0) Lymphocytes (%) (Auto) 13.1 % (20.0-45.0) L Monocytes (%) (Auto) 8.2 % (1.0-10.0) Eosinophils (%) (Auto) 2.2 % (0.0-3.0) Basophils (%) (Auto) 1.7 % (0.0-2.0) Sodium Level 139 MMOL/L (136-145) Potassium Level 4.1 MMOL/L (3.5-5.1) Chloride Level 99 MMOL/L (98-107) Carbon Dioxide Level 37 MMOL/L (21-32) H Anion Gap 3 mmol/L (5-15) L Blood Urea Nitrogen 8 mg/dL (7-18) Creatinine 0.6 MG/DL (0.55-1.30) Estimat Glomerular Filtration Rate mL/min (>60) Glucose Level 110 MG/DL (74-106) H Calcium Level 9.2 MG/DL (8.5-10.1) Current Medications Medications (Trade) Dose Ordered Sig/Ibrahima Route PRN Reason Start Time Stop Time Status Last Admin Dose Admin Acetaminophen (Tylenol) 650 mg Q4H PRN ORAL Mild Pain 04/13/18 21:38 05/13/18 21:37 04/13/18 21:54 Acetaminophen (Tylenol) 650 mg Q4H PRN ORAL Fever (temp >100.3) 04/13/18 21:38 05/13/18 21:37 04/15/18 04:45 Amiodarone HCl (Cordarone) 200 mg DAILY ORAL 04/14/18 09:00 05/05/18 08:59 04/15/18 08:51 Apixaban (Eliquis) 5 mg Q12HR ORAL 04/14/18 09:00 05/14/18 08:59 04/15/18 08:51 Dextrose (Dextrose 50%) 25 ml Q30M PRN IV Hypoglycemia 04/13/18 21:45 05/04/18 08:44 Dextrose (Dextrose 50%) 50 ml Q30M PRN IV Hypoglycemia 04/13/18 22:00 05/04/18 10:29 Diltiazem HCl (Cardizem) 90 mg EVERY 8 HOURS ORAL 04/13/18 22:00 05/04/18 21:59 04/15/18 14:28 Doxycycline Monohydrate (Vibramycin) 100 mg EVERY 12 HOURS ORAL 04/14/18 09:00 04/21/18 08:59 04/15/18 08:51 Furosemide (Lasix) 40 mg DAILY IV 04/15/18 09:00 05/14/18 08:59 04/15/18 08:52 Haloperidol Lactate (Haldol) 5 mg Q6H PRN IM Agitation 04/13/18 21:39 05/13/18 21:38 Ipratropium [place] (Atrovent) 500 mcg Q6HRT HHN 04/15/18 07:00 04/20/18 06:59 04/15/18 13:54 Lorazepam (Ativan) 2 mg Q6H PRN ORAL For Anxiety 04/14/18 13:30 04/21/18 13:29 Mirtazapine (Remeron) 7.5 mg BEDTIME PRN ORAL insomnia 04/14/18 21:00 05/14/18 20:59 04/14/18 23:08 Ondansetron HCl (Zofran) 4 mg Q6H PRN IVP Nausea & Vomiting 04/13/18 21:39 05/13/18 21:38 Pantoprazole (Protonix) 40 mg DAILY ORAL 04/14/18 09:00 05/14/18 08:59 04/15/18 08:52 Polyethylene Glycol (Miralax) 17 gm DAILYPRN PRN ORAL Constipation 04/13/18 21:39 05/13/18 21:38 Juan Moeller MD Apr 15, 2018 15:16
--- NOTE | 2018-04-15 15:37 | General Progress Note ---
Assessment/Plan Problem List: (1) Schizophrenia ICD Codes: F20.9 - Schizophrenia, unspecified SNOMED: 99738018 (2) Encephalopathy acute Assessment & Plan: (1) Schizophrenia ICD Codes: F20.9 - Schizophrenia, unspecified SNOMED: 11891449 (2) Encephalopathy acute ICD Codes: G93.40 - Encephalopathy, unspecified SNOMED: 5195545 Status: unchanged Assessment/Plan Ativan IM prn haldol IM prn the pts Risperdal was discontinued ICD Codes: G93.40 - Encephalopathy, unspecified SNOMED: 5525272 Status: stable, progressing Assessment/Plan Ativan IM prn haldol IM prn cont to monitor Subjective Neurologic/Psychiatric: Reports: anxiety, depressed, emotional problems Allergies: Coded Allergies: PIPERACILLIN (Unverified Allergy, Unknown, 03/10/18) TAZOBACTAM (Unverified Allergy, Unknown, 03/10/18) Subjective the pt is more alert is agitated the pt yelling Objective Last 24 Hour Vital Signs Date Time Temp Pulse Resp B/P (MAP) Pulse Ox O2 Delivery O2 Flow Rate FiO2 04/15/18 14:28 68 134/67 04/15/18 14:10 73 20 100 Nasal Cannula 2.0 28 04/15/18 13:53 68 16 98 Nasal Cannula 2.0 28 04/15/18 12:07 2.0 04/15/18 12:00 97.5 63 20 134/67 (89) 97 04/15/18 12:00 64 04/15/18 09:00 Nasal Cannula 2.0 04/15/18 08:11 80 20 100 Nasal Cannula 2.0 28 04/15/18 08:00 71 16 98 Nasal Cannula 2.0 28 04/15/18 08:00 98.2 62 20 149/63 (91) 95 04/15/18 08:00 63 04/15/18 08:00 2.0 04/15/18 05:59 82 151/72 04/15/18 05:15 97.3 04/15/18 04:00 97.3 68 16 151/72 (98) 97 04/15/18 04:00 82 04/15/18 04:00 2.0 04/15/18 01:44 Nasal Cannula 2.0 28 04/15/18 01:43 Nasal Cannula 2.0 28 04/15/18 00:03 67 20 98 04/15/18 00:00 2.0 04/15/18 00:00 62 04/15/18 00:00 97.5 67 16 150/81 (104) 98 04/14/18 22:00 52 129/62 04/14/18 21:00 Nasal Cannula 2.0 Nasal Cannula 2.0 04/14/18 20:19 85 20 100 Nasal Cannula 2.0 28 04/14/18 20:06 62 20 97 Nasal Cannula 2.0 28 04/14/18 20:00 2.0 04/14/18 20:00 62 04/14/18 20:00 97.5 65 16 129/62 (84) 91 04/14/18 16:00 63 04/14/18 16:00 2.0 04/14/18 16:00 98.9 61 16 136/94 (108) 95 Intake and Output 04/14/18 04/15/18 18:59 06:59 Intake Total 360 ml 200 ml Output Total 550 ml 300 ml Balance -190 ml -100 ml Intake Oral 360 ml 200 ml Output Urine Total 550 ml 300 ml # Voids 2 # Bowel Movements 2 Laboratory Tests 04/15/18 07:10: White Blood Count 7.0, Red Blood Count 4.63, Hemoglobin 12.9, Hematocrit 39.4, Mean Corpuscular Volume 85, Mean Corpuscular Hemoglobin 27.9, Mean Corpuscular Hemoglobin Concent 32.8, Red Cell Distribution Width 15.5H, Platelet Count 204, Mean Platelet Volume 7.0, Neutrophils (%) (Auto) 74.7, Lymphocytes (%) (Auto) 13.1L, Monocytes (%) (Auto) 8.2, Eosinophils (%) (Auto) 2.2, Basophils (%) (Auto ) 1.7, Sodium Level 139, Potassium Level 4.1, Chloride Level 99, Carbon Dioxide Level 37H, Anion Gap 3L, Blood Urea Nitrogen 8, Creatinine 0.6, Estimat Glomerular Filtration Rate , Glucose Level 110H, Calcium Level 9.2 Height (Feet): 5 Height (Inches): 7.00 Weight (Pounds): 198 General Appearance: alert, confused, agitated Luiz Morrison MD Apr 15, 2018 15:37
[2018-04-15 16:00] VITALS: BP 127/55
--- NOTE | 2018-04-15 18:40 | Internal Med Progress Note ---
Subjective Date of Service: Apr 15, 2018 Physician Name Juan Dutta Attending Physician Yonathan Mendoza MD Current Medications Medications (Trade) Dose Ordered Sig/Ibrahima Route PRN Reason Start Time Stop Time Status Last Admin Dose Admin Acetaminophen (Tylenol) 650 mg Q4H PRN ORAL Mild Pain 04/13/18 21:38 05/13/18 21:37 04/13/18 21:54 Acetaminophen (Tylenol) 650 mg Q4H PRN ORAL Fever (temp >100.3) 04/13/18 21:38 05/13/18 21:37 04/15/18 15:28 Amiodarone HCl (Cordarone) 200 mg DAILY ORAL 04/14/18 09:00 05/05/18 08:59 04/15/18 08:51 Apixaban (Eliquis) 5 mg Q12HR ORAL 04/14/18 09:00 05/14/18 08:59 04/15/18 08:51 Dextrose (Dextrose 50%) 25 ml Q30M PRN IV Hypoglycemia 04/13/18 21:45 05/04/18 08:44 Dextrose (Dextrose 50%) 50 ml Q30M PRN IV Hypoglycemia 04/13/18 22:00 05/04/18 10:29 Diltiazem HCl (Cardizem) 90 mg EVERY 8 HOURS ORAL 04/13/18 22:00 05/04/18 21:59 04/15/18 14:28 Doxycycline Monohydrate (Vibramycin) 100 mg EVERY 12 HOURS ORAL 04/14/18 09:00 04/15/18 23:00 04/15/18 08:51 Furosemide (Lasix) 40 mg DAILY IV 04/15/18 09:00 05/14/18 08:59 04/15/18 08:52 Haloperidol Lactate (Haldol) 5 mg Q6H PRN IM Agitation 04/13/18 21:39 05/13/18 21:38 Ipratropium [place] (Atrovent) 500 mcg Q6HRT HHN 04/15/18 07:00 04/20/18 06:59 04/15/18 13:54 Lorazepam (Ativan) 2 mg Q6H PRN ORAL For Anxiety 04/14/18 13:30 04/21/18 13:29 Mirtazapine (Remeron) 7.5 mg BEDTIME ORAL 04/15/18 21:00 05/15/18 20:59 Ondansetron HCl (Zofran) 4 mg Q6H PRN IVP Nausea & Vomiting 04/13/18 21:39 05/13/18 21:38 Pantoprazole (Protonix) 40 mg DAILY ORAL 04/14/18 09:00 05/14/18 08:59 04/15/18 08:52 Phenol/Menthol (Chloraseptic) 1 spray TIDPRN PRN ORAL Sore throat 04/15/18 15:15 05/15/18 15:14 Polyethylene Glycol (Miralax) 17 gm DAILYPRN PRN ORAL Constipation 04/13/18 21:39 05/13/18 21:38 Allergies: Coded Allergies: PIPERACILLIN (Unverified Allergy, Unknown, 03/10/18) TAZOBACTAM (Unverified Allergy, Unknown, 03/10/18) ROS Limited/Unobtainable: Yes Subjective 77 YO F admitted with respiratory failure and atrial flutter wit rapid ventricular rate. Now Legionella pneumonia. Cover for - Dr Mendoza. Tolerating nasal canula. Objective Last Vital Signs Date Time Temp Pulse Resp B/P (MAP) Pulse Ox O2 Delivery O2 Flow Rate FiO2 04/15/18 15:58 97.5 04/15/18 14:28 68 134/67 04/15/18 14:10 20 100 Nasal Cannula 2.0 28 Laboratory Tests Test 04/15/18 07:10 White Blood Count 7.0 K/UL (4.8-10.8) Red Blood Count 4.63 M/UL (4.20-5.40) Hemoglobin 12.9 G/DL (12.0-16.0) Hematocrit 39.4 % (37.0-47.0) Mean Corpuscular Volume 85 FL (80-99) Mean Corpuscular Hemoglobin 27.9 PG (27.0-31.0) Mean Corpuscular Hemoglobin Concent 32.8 G/DL (32.0-36.0) Red Cell Distribution Width 15.5 % (11.6-14.8) H Platelet Count 204 K/UL (150-450) Mean Platelet Volume 7.0 FL (6.5-10.1) Neutrophils (%) (Auto) 74.7 % (45.0-75.0) Lymphocytes (%) (Auto) 13.1 % (20.0-45.0) L Monocytes (%) (Auto) 8.2 % (1.0-10.0) Eosinophils (%) (Auto) 2.2 % (0.0-3.0) Basophils (%) (Auto) 1.7 % (0.0-2.0) Sodium Level 139 MMOL/L (136-145) Potassium Level 4.1 MMOL/L (3.5-5.1) Chloride Level 99 MMOL/L (98-107) Carbon Dioxide Level 37 MMOL/L (21-32) H Anion Gap 3 mmol/L (5-15) L Blood Urea Nitrogen 8 mg/dL (7-18) Creatinine 0.6 MG/DL (0.55-1.30) Estimat Glomerular Filtration Rate mL/min (>60) Glucose Level 110 MG/DL (74-106) H Calcium Level 9.2 MG/DL (8.5-10.1) Intake and Output 04/14/18 04/15/18 18:59 06:59 Intake Total 360 ml 200 ml Output Total 550 ml 300 ml Balance -190 ml -100 ml Intake Oral 360 ml 200 ml Output Urine Total 550 ml 300 ml # Voids 2 # Bowel Movements 2 Objective General Appearance: WD/WN, no apparent distress EENT: PERRL/EOMI, normal ENT inspection Neck: non-tender, normal alignment, supple Cardiovascular: normal peripheral pulses, regular rhythm, no gallop/murmur, no JVD, tachycardia Respiratory/Chest: nasal canula; chest wall non-tender, respiratory distress, crackles/rales, rhonchi - bilaterally, expiratory wheezing Abdomen: normal bowel sounds, non tender, soft, no organomegaly, no mass Extremities: normal range of motion, non-tender Skin: normal pigmentation, warm/dry Assessment/Plan Problem List: (1) Pneumonia Assessment & Plan: Legionella. Continue doxycycline-see ID note. (2) Atrial fibrillation with RVR Assessment & Plan: Cntinue amiodarone-See cardiology note. (3) CHF (congestive heart failure) (4) COPD (chronic obstructive pulmonary disease) Assessment & Plan: see pulmonary note. (5) Pacemaker Assessment & Plan: Intraventricular. See cardiology note. (6) CAD (coronary artery disease) (7) Seizure disorder (8) Bipolar depression (9) Respiratory failure, acute Assessment & Plan: per pulmonary (10) UTI (lower urinary tract infection) Assessment & Plan: Proteus. Continue ceftriaxone per ID Status: not improved Juan Dutta MD Apr 15, 2018 18:40
[2018-04-15 20:00] VITALS: BP 127/55
[2018-04-16] VITALS: BP 146/61
[2018-04-16] MEDS: Ipratropium 0.02% Inh Soln 2.5ml UD HHN SCH ×3 (01:00→13:30)
[2018-04-16 04:00] VITALS: BP 156/65
[2018-04-16] MEDS: dilTIAZem HCl 90mg tab ORAL SCH ×2 (05:32→14:25)
[2018-04-16 08:00] VITALS: BP 132/70
[2018-04-16 08:42] LABS: BASOPHILS % (AUTO) 1.8 % (0.0-2.0); EOSINOPHILS % (AUTO) 2.2 % (0.0-3.0); HEMATOCRIT 37.6 % (37.0-47.0); HEMOGLOBIN 12.4 G/DL (12.0-16.0); LYMPHOCYTES % (AUTO) 10.5 % (20.0-45.0); MEAN CORPUSCULAR VOLUME 85 FL (80-99); MONOCYTES % (AUTO) 7.3 % (1.0-10.0); NEUTROPHILS % (AUTO) 78.2 % (45.0-75.0); PLATELET COUNT 186 K/UL (150-450); RED CELL DISTRIBUTION WIDTH 15.7 % (11.6-14.8); WHITE BLOOD COUNT 9.2 K/UL (4.8-10.8)
[2018-04-16 09:06] LABS: ANION GAP 4 mmol/L (5-15); BLOOD UREA NITROGEN 7 mg/dL (7-18); CALCIUM 9.1 MG/DL (8.5-10.1); CARBON DIOXIDE 35 MMOL/L (21-32); CHLORIDE 101 MMOL/L (98-107); CREATININE 0.7 MG/DL (0.55-1.30); POTASSIUM 3.9 MMOL/L (3.5-5.1); SODIUM 140 MMOL/L (136-145)
[2018-04-16] MEDS: Amiodarone 200mg tab ORAL SCH (10:26)
[2018-04-16] MEDS: Eliquis 2.5mg tablet ORAL SCH (10:26)
--- NOTE | 2018-04-16 10:26 | Pulmonology Progress Note ---
Assessment/Plan Problems: (1) Respiratory failure, acute (2) Acute diastolic CHF (congestive heart failure) (3) COPD (chronic obstructive pulmonary disease) (4) Atrial fibrillation with RVR (5) Major depression (6) Bipolar depression Assessment/Plan looks better every day total of 8 liters negative fluid balance so far improving bun/creatinine are NOT rising yet continue lasix bid check electrolytes respiratory treatment watch bun/creatinine dc to senior care dvt prophylaxis. Subjective ROS Limited/Unobtainable: No Interval Events: improving Allergies: Coded Allergies: PIPERACILLIN (Unverified Allergy, Unknown, 03/10/18) TAZOBACTAM (Unverified Allergy, Unknown, 03/10/18) Objective Last 24 Hour Vital Signs Date Time Temp Pulse Resp B/P (MAP) Pulse Ox O2 Delivery O2 Flow Rate FiO2 04/16/18 08:00 61 04/16/18 08:00 97.3 76 16 132/70 (90) 91 04/16/18 07:38 68 20 100 Nasal Cannula 2.0 28 04/16/18 07:31 66 16 100 Nasal Cannula 2.0 28 04/16/18 05:32 74 156/65 04/16/18 04:00 97.6 65 20 156/65 (95) 99 04/16/18 04:00 68 04/16/18 04:00 2.0 04/16/18 01:59 Nasal Cannula 2.0 28 04/16/18 01:57 Nasal Cannula 2.0 28 04/16/18 00:00 60 04/16/18 00:00 2.0 04/16/18 00:00 98.2 61 20 146/61 (89) 97 04/15/18 22:23 62 18 97 04/15/18 21:12 62 127/55 04/15/18 21:00 Nasal Cannula 2.0 04/15/18 20:00 60 04/15/18 20:00 2.0 04/15/18 20:00 97.4 62 20 127/55 (79) 96 04/15/18 19:24 60 16 100 Nasal Cannula 2.0 28 04/15/18 19:10 60 14 98 Nasal Cannula 2.0 28 04/15/18 16:00 98.5 72 20 127/55 (79) 98 04/15/18 16:00 60 11/14/18 16:00 2.0 04/15/18 15:58 97.5 04/15/18 14:28 68 134/67 04/15/18 14:10 73 20 100 Nasal Cannula 2.0 28 04/15/18 13:53 68 16 98 Nasal Cannula 2.0 28 04/15/18 12:07 2.0 04/15/18 12:00 97.5 63 20 134/67 (89) 97 04/15/18 12:00 64 Intake and Output 04/15/18 04/16/18 19:00 07:00 Intake Total 360 ml Output Total 1200 ml 600 ml Balance -840 ml -600 ml Intake Oral 360 ml Output Urine Total 1200 ml 600 ml # Bowel Movements 2 1 General Appearance: WD/WN HEENT: normocephalic, atraumatic Respiratory/Chest: chest wall non-tender, lungs clear Breasts: no masses Cardiovascular: normal rate, regular rhythm Abdomen: normal bowel sounds, soft, non tender Extremities: no cyanosis, no clubbing 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 Laboratory Tests 04/16/18 08:10: White Blood Count 9.2, Red Blood Count 4.40, Hemoglobin 12.4, Hematocrit 37.6, Mean Corpuscular Volume 85, Mean Corpuscular Hemoglobin 28.1, Mean Corpuscular Hemoglobin Concent 32.9, Red Cell Distribution Width 15.7H, Platelet Count 186, Mean Platelet Volume 7.4, Neutrophils (%) (Auto) 78.2H, Lymphocytes (%) (Auto) 10.5L, Monocytes (%) (Auto) 7.3, Eosinophils (%) (Auto) 2.2, Basophils (%) (Auto ) 1.8, Sodium Level 140, Potassium Level 3.9, Chloride Level 101, Carbon Dioxide Level 35H, Anion Gap 4L, Blood Urea Nitrogen 7, Creatinine 0.7, Estimat Glomerular Filtration Rate , Glucose Level 117H, Calcium Level 9.1 Current Medications Medications (Trade) Dose Ordered Sig/Ibrahima Route PRN Reason Start Time Stop Time Status Last Admin Dose Admin Acetaminophen (Tylenol) 650 mg Q4H PRN ORAL Mild Pain 04/13/18 21:38 05/13/18 21:37 04/13/18 21:54 Acetaminophen (Tylenol) 650 mg Q4H PRN ORAL Fever (temp >100.3) 04/13/18 21:38 05/13/18 21:37 04/15/18 15:28 Amiodarone HCl (Cordarone) 200 mg DAILY ORAL 04/14/18 09:00 05/05/18 08:59 04/15/18 08:51 Apixaban (Eliquis) 5 mg Q12HR ORAL 04/14/18 09:00 05/14/18 08:59 04/15/18 21:11 Dextrose (Dextrose 50%) 25 ml Q30M PRN IV Hypoglycemia 04/13/18 21:45 05/04/18 08:44 Dextrose (Dextrose 50%) 50 ml Q30M PRN IV Hypoglycemia 04/13/18 22:00 05/04/18 10:29 Diltiazem HCl (Cardizem) 90 mg EVERY 8 HOURS ORAL 04/13/18 22:00 05/04/18 21:59 04/16/18 05:32 Furosemide (Lasix) 40 mg DAILY IV 04/15/18 09:00 05/14/18 08:59 04/15/18 08:52 Haloperidol Lactate (Haldol) 5 mg Q6H PRN IM Agitation 04/13/18 21:39 05/13/18 21:38 Ipratropium [place] (Atrovent) 500 mcg Q6HRT HHN 04/15/18 07:00 04/20/18 06:59 04/16/18 07:31 Lorazepam (Ativan) 2 mg Q6H PRN ORAL For Anxiety 04/14/18 13:30 04/21/18 13:29 Mirtazapine (Remeron) 7.5 mg BEDTIME ORAL 04/15/18 21:00 05/15/18 20:59 04/15/18 21:11 Ondansetron HCl (Zofran) 4 mg Q6H PRN IVP Nausea & Vomiting 04/13/18 21:39 05/13/18 21:38 Pantoprazole (Protonix) 40 mg DAILY ORAL 04/14/18 09:00 05/14/18 08:59 04/15/18 08:52 Phenol/Menthol (Chloraseptic) 1 spray TIDPRN PRN ORAL Sore throat 04/15/18 15:15 05/15/18 15:14 04/15/18 22:26 Polyethylene Glycol (Miralax) 17 gm DAILYPRN PRN ORAL Constipation 04/13/18 21:39 05/13/18 21:38 Mendel Sierra MD Apr 16, 2018 10:26
[2018-04-16 12:00] VITALS: BP 126/50
--- NOTE | 2018-04-16 13:01 | Diagnostic Imaging Report ---
Indication: Shortness of breath Technique: One view of the chest Comparison: 04/14/2018 Findings: The heart is enlarged. There is left-sided pleural effusion again demonstrated. Small right-sided pleural effusion is again demonstrated. Better inspiration currently. There is equivocal minimal interstitial congestion persisting. Monitoring device projects over the left heart. Findings are overall unchanged allowing for differences in degree of inspiration Impression: Unchanged, over 2 days, findings as above.
[2018-04-16 14:25] VITALS: BP 126/50
--- NOTE | 2018-04-16 15:37 | Infectious Diseases Prog Note ---
Assessment/Plan Assessment/Plan ASSESSMENT: The patient is a 77-year-old female with: Sore throat ( no evid of infectious process) Febrile, low grade, SP Normal white blood cells. UTI Proteus mirabilis. Pneumonia, Legionella 04/14 CXR: Slightly increased right pleural effusion, over one day. Other stable findings as noted, including large left pleural effusion 04/11 CXR: Interval improvement of aeration of the right lower lobe. Persistent left lower lobe infiltrate/aspiration and left effusion. Legionella Ur Ag: Neg, Legionella IgM + / IgG - Scx: No sig growth Flu screen negative SP VDRF, 04/10 Sp extubated 04/10 Sp V/Q: Neg Atrial flutter CHF COPD CAD Hypertension Seizure disorder Schizophrenia Depression History of intraventricular pacemaker implantation PLAN: Monitor pt off of AB Rx 04/15 sp Doxy d# 10 Chloraseptic spray (sore throat) -04/11 SP Rocephin day # 7 -04/07 Sp IV vancomycin d # 3 -Monitor CBC -Monitor BMP -Monitor chest x-ray Subjective Allergies: Coded Allergies: PIPERACILLIN (Unverified Allergy, Unknown, 03/10/18) TAZOBACTAM (Unverified Allergy, Unknown, 03/10/18) Subjective comfortable Objective Vital Signs Last 24 Hour Vital Signs Date Time Temp Pulse Resp B/P (MAP) Pulse Ox O2 Delivery O2 Flow Rate FiO2 04/16/18 14:25 150 126/50 04/16/18 13:30 Nasal Cannula 04/16/18 13:30 Nasal Cannula 04/16/18 13:09 75 04/16/18 12:00 97.0 64 16 126/50 (75) 93 04/16/18 12:00 2.0 04/16/18 09:00 Nasal Cannula 2.0 04/16/18 08:00 61 04/16/18 08:00 97.3 76 16 132/70 (90) 91 04/16/18 08:00 2.0 04/16/18 07:38 68 20 100 Nasal Cannula 2.0 28 04/16/18 07:31 66 16 100 Nasal Cannula 2.0 28 04/16/18 05:32 74 156/65 04/16/18 04:00 97.6 65 20 156/65 (95) 99 04/16/18 04:00 68 04/16/18 04:00 2.0 04/16/18 01:59 Nasal Cannula 2.0 28 04/16/18 01:57 Nasal Cannula 2.0 28 04/16/18 00:00 60 04/16/18 00:00 2.0 04/16/18 00:00 98.2 61 20 146/61 (89) 97 04/15/18 22:23 62 18 97 04/15/18 21:12 62 127/55 04/15/18 21:00 Nasal Cannula 2.0 04/15/18 20:00 60 04/15/18 20:00 2.0 04/15/18 20:00 97.4 62 20 127/55 (79) 96 04/15/18 19:24 60 16 100 Nasal Cannula 2.0 28 04/15/18 19:10 60 14 98 Nasal Cannula 2.0 28 04/15/18 16:00 98.5 72 20 127/55 (79) 98 04/15/18 16:00 60 04/15/18 16:00 2.0 04/15/18 15:58 97.5 Height (Feet): 5 Height (Inches): 7.00 Weight (Pounds): 190 HEENT: anicteric Respiratory/Chest: normal breath sounds Cardiovascular: regular rhythm Abdomen: no organomegaly Laboratory Tests Test 04/16/18 08:10 White Blood Count 9.2 K/UL (4.8-10.8) Red Blood Count 4.40 M/UL (4.20-5.40) Hemoglobin 12.4 G/DL (12.0-16.0) Hematocrit 37.6 % (37.0-47.0) Mean Corpuscular Volume 85 FL (80-99) Mean Corpuscular Hemoglobin 28.1 PG (27.0-31.0) Mean Corpuscular Hemoglobin Concent 32.9 G/DL (32.0-36.0) Red Cell Distribution Width 15.7 % (11.6-14.8) H Platelet Count 186 K/UL (150-450) Mean Platelet Volume 7.4 FL (6.5-10.1) Neutrophils (%) (Auto) 78.2 % (45.0-75.0) H Lymphocytes (%) (Auto) 10.5 % (20.0-45.0) L Monocytes (%) (Auto) 7.3 % (1.0-10.0) Eosinophils (%) (Auto) 2.2 % (0.0-3.0) Basophils (%) (Auto) 1.8 % (0.0-2.0) Sodium Level 140 MMOL/L (136-145) Potassium Level 3.9 MMOL/L (3.5-5.1) Chloride Level 101 MMOL/L (98-107) Carbon Dioxide Level 35 MMOL/L (21-32) H Anion Gap 4 mmol/L (5-15) L Blood Urea Nitrogen 7 mg/dL (7-18) Creatinine 0.7 MG/DL (0.55-1.30) Estimat Glomerular Filtration Rate mL/min (>60) Glucose Level 117 MG/DL (74-106) H Calcium Level 9.1 MG/DL (8.5-10.1) Current Medications Medications (Trade) Dose Ordered Sig/Ibrahima Route PRN Reason Start Time Stop Time Status Last Admin Dose Admin Acetaminophen (Tylenol) 650 mg Q4H PRN ORAL Mild Pain 04/13/18 21:38 05/13/18 21:37 04/13/18 21:54 Acetaminophen (Tylenol) 650 mg Q4H PRN ORAL Fever (temp >100.3) 04/13/18 21:38 05/13/18 21:37 04/15/18 15:28 Amiodarone HCl (Cordarone) 200 mg DAILY ORAL 04/14/18 09:00 05/05/18 08:59 04/16/18 10:26 Apixaban (Eliquis) 5 mg Q12HR ORAL 04/14/18 09:00 05/14/18 08:59 04/16/18 10:26 Dextrose (Dextrose 50%) 25 ml Q30M PRN IV Hypoglycemia 04/13/18 21:45 05/04/18 08:44 Dextrose (Dextrose 50%) 50 ml Q30M PRN IV Hypoglycemia 04/13/18 22:00 05/04/18 10:29 Diltiazem HCl (Cardizem) 90 mg EVERY 8 HOURS ORAL 04/13/18 22:00 05/04/18 21:59 04/16/18 14:25 Furosemide (Lasix) 40 mg DAILY IV 04/15/18 09:00 05/14/18 08:59 04/16/18 10:27 Haloperidol Lactate (Haldol) 5 mg Q6H PRN IM Agitation 04/13/18 21:39 05/13/18 21:38 Ipratropium [place] (Atrovent) 500 mcg Q6HRT HHN 04/15/18 07:00 04/20/18 06:59 04/16/18 07:31 Lorazepam (Ativan) 2 mg Q6H PRN ORAL For Anxiety 04/14/18 13:30 04/21/18 13:29 Mirtazapine (Remeron) 7.5 mg BEDTIME ORAL 04/15/18 21:00 05/15/18 20:59 04/15/18 21:11 Ondansetron HCl (Zofran) 4 mg Q6H PRN IVP Nausea & Vomiting 04/13/18 21:39 05/13/18 21:38 Pantoprazole (Protonix) 40 mg DAILY ORAL 04/14/18 09:00 05/14/18 08:59 04/16/18 10:27 Phenol/Menthol (Chloraseptic) 1 spray TIDPRN PRN ORAL Sore throat 04/15/18 15:15 05/15/18 15:14 04/15/18 22:26 Polyethylene Glycol (Miralax) 17 gm DAILYPRN PRN ORAL Constipation 04/13/18 21:39 05/13/18 21:38 04/16/18 10:33 Juan Moeller MD Apr 16, 2018 15:37
--- NOTE | 2018-04-16 16:10 | Cardiac Electrophysiology PN ---
Assessment/Plan Assessment/Plan 1. Atrial flutter with rapid ventricular response. Continue Cardizem 90 mg tid, amiodarone 200 mg daily and apixaban 5 mg bid. Occasionally V paced 2. Status post Medtronic Micra leadless pacer implantation in 2016 at [facility]. 3. S/P Respiratory failure to diastolic dysfunction on Vent. EF of 55%. On Lasix 4. Hypertension, on Lasix and Cardizem. 5. Psychosis and schizophrenia, on Risperdal. DW RN Subjective Subjective Remained in Atrial fib with stable rate. No CP or SOB. Awaiting discharge Objective Last 24 Hour Vital Signs Date Time Temp Pulse Resp B/P (MAP) Pulse Ox O2 Delivery O2 Flow Rate FiO2 04/16/18 14:25 150 126/50 04/16/18 13:30 Nasal Cannula 04/16/18 13:30 Nasal Cannula 04/16/18 13:09 75 04/16/18 12:00 97.0 64 16 126/50 (75) 93 04/16/18 12:00 2.0 04/16/18 09:00 Nasal Cannula 2.0 04/16/18 08:00 61 04/16/18 08:00 97.3 76 16 132/70 (90) 91 04/16/18 08:00 2.0 04/16/18 07:38 68 20 100 Nasal Cannula 2.0 28 04/16/18 07:31 66 16 100 Nasal Cannula 2.0 28 04/16/18 05:32 74 156/65 04/16/18 04:00 97.6 65 20 156/65 (95) 99 04/16/18 04:00 68 04/16/18 04:00 2.0 04/16/18 01:59 Nasal Cannula 2.0 28 04/16/18 01:57 Nasal Cannula 2.0 28 04/16/18 00:00 60 04/16/18 00:00 2.0 04/16/18 00:00 98.2 61 20 146/61 (89) 97 04/15/18 22:23 62 18 97 04/15/18 21:12 62 127/55 04/15/18 21:00 Nasal Cannula 2.0 04/15/18 20:00 60 04/15/18 20:00 2.0 04/15/18 20:00 97.4 62 20 127/55 (79) 96 04/15/18 19:24 60 16 100 Nasal Cannula 2.0 28 04/15/18 19:10 60 14 98 Nasal Cannula 2.0 28 Intake and Output 04/15/18 04/16/18 18:59 06:59 Intake Total 360 ml Output Total 1200 ml 600 ml Balance -840 ml -600 ml Intake Oral 360 ml Output Urine Total 1200 ml 600 ml # Bowel Movements 2 1 Laboratory Tests Test 04/16/18 08:10 White Blood Count 9.2 K/UL (4.8-10.8) Red Blood Count 4.40 M/UL (4.20-5.40) Hemoglobin 12.4 G/DL (12.0-16.0) Hematocrit 37.6 % (37.0-47.0) Mean Corpuscular Volume 85 FL (80-99) Mean Corpuscular Hemoglobin 28.1 PG (27.0-31.0) Mean Corpuscular Hemoglobin Concent 32.9 G/DL (32.0-36.0) Red Cell Distribution Width 15.7 % (11.6-14.8) H Platelet Count 186 K/UL (150-450) Mean Platelet Volume 7.4 FL (6.5-10.1) Neutrophils (%) (Auto) 78.2 % (45.0-75.0) H Lymphocytes (%) (Auto) 10.5 % (20.0-45.0) L Monocytes (%) (Auto) 7.3 % (1.0-10.0) Eosinophils (%) (Auto) 2.2 % (0.0-3.0) Basophils (%) (Auto) 1.8 % (0.0-2.0) Sodium Level 140 MMOL/L (136-145) Potassium Level 3.9 MMOL/L (3.5-5.1) Chloride Level 101 MMOL/L (98-107) Carbon Dioxide Level 35 MMOL/L (21-32) H Anion Gap 4 mmol/L (5-15) L Blood Urea Nitrogen 7 mg/dL (7-18) Creatinine 0.7 MG/DL (0.55-1.30) Estimat Glomerular Filtration Rate mL/min (>60) Glucose Level 117 MG/DL (74-106) H Calcium Level 9.1 MG/DL (8.5-10.1) Objective HEAD AND NECK: No JVD LUNGS: Coarse rhonchi. CARDIOVASCULAR: Irregular S1 and S2 with no gallop. ABDOMEN: Soft. EXTREMITIES: 1+ pitting edema. Yohan Milian MD Apr 16, 2018 16:10
--- NOTE | 2018-04-16 17:06 | Internal Med Progress Note ---
Subjective Date of Service: Apr 16, 2018 Physician Name LuzmariaJuan Attending Physician Yonathan Mendoza MD Current Medications Medications (Trade) Dose Ordered Sig/Ibrahima Route PRN Reason Start Time Stop Time Status Last Admin Dose Admin Acetaminophen (Tylenol) 650 mg Q4H PRN ORAL Mild Pain 04/13/18 21:38 05/13/18 21:37 04/13/18 21:54 Acetaminophen (Tylenol) 650 mg Q4H PRN ORAL Fever (temp >100.3) 04/13/18 21:38 05/13/18 21:37 04/15/18 15:28 Amiodarone HCl (Cordarone) 200 mg DAILY ORAL 04/14/18 09:00 05/05/18 08:59 04/16/18 10:26 Apixaban (Eliquis) 5 mg Q12HR ORAL 04/14/18 09:00 05/14/18 08:59 04/16/18 10:26 Dextrose (Dextrose 50%) 25 ml Q30M PRN IV Hypoglycemia 04/13/18 21:45 05/04/18 08:44 Dextrose (Dextrose 50%) 50 ml Q30M PRN IV Hypoglycemia 04/13/18 22:00 05/04/18 10:29 Diltiazem HCl (Cardizem) 90 mg EVERY 8 HOURS ORAL 04/13/18 22:00 05/04/18 21:59 04/16/18 14:25 Furosemide (Lasix) 40 mg DAILY IV 04/15/18 09:00 05/14/18 08:59 04/16/18 10:27 Haloperidol Lactate (Haldol) 5 mg Q6H PRN IM Agitation 04/13/18 21:39 05/13/18 21:38 Ipratropium [place] (Atrovent) 500 mcg Q6HRT HHN 04/15/18 07:00 04/20/18 06:59 04/16/18 07:31 Lorazepam (Ativan) 2 mg Q6H PRN ORAL For Anxiety 04/14/18 13:30 04/21/18 13:29 Mirtazapine (Remeron) 7.5 mg BEDTIME ORAL 04/15/18 21:00 05/15/18 20:59 04/15/18 21:11 Ondansetron HCl (Zofran) 4 mg Q6H PRN IVP Nausea & Vomiting 04/13/18 21:39 05/13/18 21:38 Pantoprazole (Protonix) 40 mg DAILY ORAL 04/14/18 09:00 05/14/18 08:59 04/16/18 10:27 Phenol/Menthol (Chloraseptic) 1 spray TIDPRN PRN ORAL Sore throat 04/15/18 15:15 05/15/18 15:14 04/15/18 22:26 Polyethylene Glycol (Miralax) 17 gm DAILYPRN PRN ORAL Constipation 04/13/18 21:39 05/13/18 21:38 04/16/18 10:33 Allergies: Coded Allergies: PIPERACILLIN (Unverified Allergy, Unknown, 03/10/18) TAZOBACTAM (Unverified Allergy, Unknown, 03/10/18) ROS Limited/Unobtainable: No Constitutional: Reports: no symptoms HEENT: Reports: no symptoms Cardiovascular: Reports: no symptoms Respiratory: Reports: shortness of breath Gastrointestinal/Abdominal: Reports: no symptoms Genitourinary: Reports: no symptoms Neurologic/Psychiatric: Reports: no symptoms Subjective 77 YO F admitted with respiratory failure and atrial flutter wit rapid ventricular rate. Now Legionella pneumonia. Cover for - Dr Mendoza. Tolerating nasal canula. await transfer to [facility] Objective Last Vital Signs Date Time Temp Pulse Resp B/P (MAP) Pulse Ox O2 Delivery O2 Flow Rate FiO2 04/16/18 14:25 150 126/50 04/16/18 13:30 Nasal Cannula 04/16/18 12:00 97.0 16 93 04/16/18 12:00 2.0 04/16/18 07:38 28 Laboratory Tests Test 04/16/18 08:10 White Blood Count 9.2 K/UL (4.8-10.8) Red Blood Count 4.40 M/UL (4.20-5.40) Hemoglobin 12.4 G/DL (12.0-16.0) Hematocrit 37.6 % (37.0-47.0) Mean Corpuscular Volume 85 FL (80-99) Mean Corpuscular Hemoglobin 28.1 PG (27.0-31.0) Mean Corpuscular Hemoglobin Concent 32.9 G/DL (32.0-36.0) Red Cell Distribution Width 15.7 % (11.6-14.8) H Platelet Count 186 K/UL (150-450) Mean Platelet Volume 7.4 FL (6.5-10.1) Neutrophils (%) (Auto) 78.2 % (45.0-75.0) H Lymphocytes (%) (Auto) 10.5 % (20.0-45.0) L Monocytes (%) (Auto) 7.3 % (1.0-10.0) Eosinophils (%) (Auto) 2.2 % (0.0-3.0) Basophils (%) (Auto) 1.8 % (0.0-2.0) Sodium Level 140 MMOL/L (136-145) Potassium Level 3.9 MMOL/L (3.5-5.1) Chloride Level 101 MMOL/L (98-107) Carbon Dioxide Level 35 MMOL/L (21-32) H Anion Gap 4 mmol/L (5-15) L Blood Urea Nitrogen 7 mg/dL (7-18) Creatinine 0.7 MG/DL (0.55-1.30) Estimat Glomerular Filtration Rate mL/min (>60) Glucose Level 117 MG/DL (74-106) H Calcium Level 9.1 MG/DL (8.5-10.1) Intake and Output 04/15/18 04/16/18 18:59 06:59 Intake Total 360 ml Output Total 1200 ml 600 ml Balance -840 ml -600 ml Intake Oral 360 ml Output Urine Total 1200 ml 600 ml # Bowel Movements 2 1 Objective General Appearance: WD/WN, no apparent distress EENT: PERRL/EOMI, normal ENT inspection Neck: non-tender, normal alignment, supple Cardiovascular: normal peripheral pulses, regular rhythm, no gallop/murmur, no JVD, tachycardia Respiratory/Chest: nasal canula; chest wall non-tender, respiratory distress, crackles/rales, rhonchi - bilaterally, expiratory wheezing Abdomen: normal bowel sounds, non tender, soft, no organomegaly, no mass Extremities: normal range of motion, non-tender Skin: normal pigmentation, warm/dry Assessment/Plan Problem List: (1) Pneumonia Assessment & Plan: Legionella. Continue doxycycline-see ID note. (2) Atrial fibrillation with RVR Assessment & Plan: Cntinue amiodarone-See cardiology note. (3) CHF (congestive heart failure) (4) COPD (chronic obstructive pulmonary disease) Assessment & Plan: see pulmonary note. (5) Pacemaker Assessment & Plan: Intraventricular. See cardiology note. (6) CAD (coronary artery disease) (7) Seizure disorder (8) Bipolar depression (9) Respiratory failure, acute Assessment & Plan: per pulmonary (10) UTI (lower urinary tract infection) Assessment & Plan: Proteus. Continue ceftriaxone per ID Assessment/Plan Discharge to [facility] today Juan Dutta MD Apr 16, 2018 17:06
--- NOTE | 2018-04-18 07:30 | Discharge Summary ---
Discharge Summary Discharge Summary _ DATE OF ADMISSION: 04/04/2018 DATE OF DISCHARGE: 04/16/2018 CONSULTANTS: Dr. Yohan Morrison BRIEF HOSPITAL COURSE: Patient is a 77-year-old white female, who presented with chief complaint of tachycardia. The patient is a resident of rehabilitation Center [facility]. According to staff at the [facility]. Patient began to have tachycardia on . She also became short of breath. EMS was called and patient was transported to ED. On evaluation at ED, she was found to be tachypneic. BiPAP was started. Patient improved on BiPAP with decreased heart rate and decreased respiratory rate. Blood work showed no leukocytosis, hemoglobin and hematocrit were stable. Chemistries were stable. BNP was elevated to 3207. Troponin was negative. Urinalysis showed 3+ leukocyte esterase, 20-30 RBC, too many to count WBC, positive nitrite. Influenza screen was negative. She had an EKG that showed atrial fibrillation. Chest x-ray showed bilateral effusion, cannot exclude infiltrates. She was noted to be less responsive on BiPAP. ABG was ordered and showed hypercapnia and respiratory acidosis. Patient was already intubated and was admitted to ICU. She was placed on vent support. She was given albuterol treatment. Venous duplex of lower extremity was negative for DVT. Patient has history of atrial fibrillation with RVR and is status post pacemaker placement in 2016. She was continued on Cardizem, apixaban and amiodarone. She had an echocardiogram done that showed ejection fraction 55% with diastolic dysfunction. She was given IV diuresis. She was initially started on IV vancomycin and Rocephin pending culture results. Urine culture showed growth of Proteus. Vancomycin was discontinued. She was given Rocephin and doxycycline. She has episodes of agitation and had waxing and waning of consciousness. She was placed on Ativan and Haldol as necessary. Risperdal was discontinued. She was continued on weaning process and was extubated on 04/10/2018. She was placed on BiPAP. She was able to tolerate nasal cannula. ABGs were monitored. She had evidence of worsening hypercapnia and was eventually placed on BiPAP prn. VQ scan showed low probability for PE. Urine Legionella antigen was positive for IgM; IgG negative. She completed antibiotic treatment and was monitored off of antibiotic treatment. Surveillance chest x-ray done showed pleural effusion. Patient was diuresed with negative fluid balance. She was continued on Lasix. She was eventually cleared for discharge back to [facility]. FINAL DIAGNOSES: Sepsis Acute respiratory failure requiring intubation, status post extubation Acute diastolic CHF Acute toxic encephalopathy secondary to sepsis Legionella pneumonia UTI with Proteus A. fib with RVR COPD Bipolar depression Schizophrenia Status post pacemaker Hypertension Seizure disorder Coronary artery disease DISPOSITION: Patient was discharged back to SNF. I have been assigned to dictate discharge summary on this account, and I was not involved in the patient's management. Delmi Gutierrez NP Apr 18, 2018 07:30
== END 2018-04-16 16:30 | DRG 870 ==
LOC: EDBD 04:41 → EMR 05:10 → EDBEDREQ 05:11 → ICU 05:12 → EDBEDREQSVC 06:44 → EDBEDREQ 06:44 → 2W 04-11 11:55 → 2E 04-13 20:49
PROC: 0BH17EZ Insertion of Endotracheal Airway into Trachea, Via Natural or Artificial Opening (ICD-10-PCS; principal; 2018-04-04)
PROC: 5A1955Z Respiratory Ventilation, Greater than 96 Consecutive Hours (ICD-10-PCS; principal; 2018-04-04)
DX: A41.9 Sepsis, unspecified organism (principal); I50.31 Acute diastolic (congestive) heart failure; J96.02 Acute respiratory failure with hypercapnia; A48.1 Legionnaires' disease; G93.41 Metabolic encephalopathy; I48.92 Unspecified atrial flutter; J44.0 Chronic obstructive pulmonary disease with (acute) lower respiratory infection; N39.0 Urinary tract infection, site not specified; Z99.11 Dependence on respirator [ventilator] status; I11.0 Hypertensive heart disease with heart failure; I25.10 Atherosclerotic heart disease of native coronary artery without angina pectoris; G40.909 Epilepsy, unspecified, not intractable, without status epilepticus; F20.9 Schizophrenia, unspecified; F32.9 Major depressive disorder, single episode, unspecified; B96.4 Proteus (mirabilis) (morganii) as the cause of diseases classified elsewhere; F03.90 Unspecified dementia, unspecified severity, without behavioral disturbance, psychotic disturbance, mood disturbance, and anxiety; E66.01 Morbid (severe) obesity due to excess calories; Z68.29 Body mass index [BMI] 29.0-29.9, adult; Z95.0 Presence of cardiac pacemaker; G31.84 Mild cognitive impairment of uncertain or unknown etiology
CPT/HCPCS: 31500; 36415; 36600; 71045; 74018; 78579; 78580; 80048; 80053; 80069; 80202; 81003; 82164; 82550; 82803; 83605; 83690; 83735; 83880; 84100; 84484; 85007; 85025; 85610; 85730; 86710; 86713; 87040; 87070; 87081; 87086; 87181; 87205; 93005; 93306; 93970; 94002; 94003; 94640; 94660; 94664; 96365; 96368; 96375; 99291; A9503; J2250; J2405; J8499

== ENCOUNTER 2018-05-19 20:50 | Inpatient (IN) | payer MEDICARE ==
[~2018-05-19] VITALS: Ht 157.5 cm; Wt 83.5 kg
[~2018-05-19 20:50] MED LIST changes: +GUAIFENESI100 MG/5 M ORAL; +POTASSIUM CHLO10 ME3 ORAL
[2018-05-19 20:53] VITALS: BP 131/56
[2018-05-19] MEDS ORDERED: CHLORASEPTIC M1 EACH MM (21:06)
[2018-05-19] MEDS ORDERED: ACETAMINOPHEN-1 EAC1 ORAL (21:06)
[2018-05-19] MEDS ORDERED: ACETAMINOPHEN325 M1 ORAL (21:06)
[2018-05-19] MEDS ORDERED: CHLORASEPTIC MA30 ML MM (21:06)
[2018-05-19] MEDS ORDERED: Sodium Chloride 500ML 500 ML IV ONE (21:09)
[2018-05-19 21:10] VITALS: BP 125/60
[2018-05-19] MEDS ORDERED: Solu-MEDROL 125mg Inj IVP ONE (21:15)
[2018-05-19] MEDS ORDERED: Ipratropium 0.02% Inh Soln 2.5ml UD HHN ONE (21:15)
[2018-05-19] MEDS ORDERED: Albuterol ud Inhalation HHN ONE (21:15)
[2018-05-19 21:54] LABS: HEMATOCRIT 32.1 % (37.0-47.0); HEMOGLOBIN 10.7 G/DL (12.0-16.0); MEAN CORPUSCULAR VOLUME 84 FL (80-99); PLATELET COUNT 193 K/UL (150-450); RED BLOOD COUNT 3.82 M/UL (4.20-5.40); WHITE BLOOD COUNT 11.1 K/UL (4.8-10.8)
[2018-05-19 21:55] LABS: BASOPHILS % (AUTO) 0.8 % (0.0-2.0); EOSINOPHILS % (AUTO) 0.8 % (0.0-3.0); NEUTROPHILS % (AUTO) 86.5 % (45.0-75.0)
[2018-05-19] MEDS: Ipratropium 0.02% Inh Soln 2.5ml UD HHN SCH (22:19)
[2018-05-19] MEDS: Albuterol ud Inhalation HHN SCH (22:22)
[2018-05-19 22:28] LABS: ALANINE AMINOTRANSFERASE 11 U/L (12-78); ALBUMIN 2.8 G/DL (3.4-5.0); ALBUMIN/GLOBULIN RATIO 0.7 (1.0-2.7); ALKALINE PHOSPHATASE 62 U/L (46-116); ANION GAP 1 mmol/L (5-15); ASPARTATE AMINO TRANSFERASE 15 U/L (15-37); BILIRUBIN,TOTAL 0.5 MG/DL (0.2-1.0); BLOOD UREA NITROGEN 8 mg/dL (7-18); CALCIUM 8.2 MG/DL (8.5-10.1); CHLORIDE 84 MMOL/L (98-107); CKMB 1.3 NG/ML (0.0-3.6); CREATINE KINASE 22 U/L (26-308); CREATININE 0.5 MG/DL (0.55-1.30); POTASSIUM 3.3 MMOL/L (3.5-5.1); SODIUM 125 MMOL/L (136-145)
[2018-05-19 22:30] LABS: CARBON DIOXIDE 41 MMOL/L (21-32)
--- NOTE | 2018-05-19 22:59 | Emergency Room Report ---
History of Present Illness General Chief Complaint: Dyspnea/Respdistress Source: Medical Record, EMS Present Illness HPI 77-year-old female presents ED for evaluation. Brought in by EMS from alf facility. Increased altered level of consciousness today. Also O2 sats low. Patient sats improved on oxygen. Patient unable to provide any additional history at this time. No signs of distress. No reported fevers or chills. No other aggravating relieving factors. No other associated symptoms Allergies: Coded Allergies: PIPERACILLIN (Unverified Allergy, Unknown, 03/10/18) TAZOBACTAM (Unverified Allergy, Unknown, 03/10/18) Patient History Past Medical History: HTN, CAD, CHF, GERD, CVA/TIA, seizures Past Surgical History: none Pertinent Family History: none Social History: Denies: smoking, alcohol use, drug use Last Menstrual Period: 3 decades ago Now: No Immunizations: UTD Reviewed Nursing Documentation: PMH: Agreed; PSxH: Agreed Nursing Documentation-PMH Hx Cardiac Problems: Yes - CHF Hx Hypertension: Yes Hx Pacemaker: Yes - stent Hx Asthma: No Hx COPD: Yes Hx Diabetes: No Hx Cancer: No Hx Gastrointestinal Problems: Yes - gerd Hx Dialysis: No Hx Neurological Problems: Yes Hx Cerebrovascular Accident: Yes Hx Dementia: Yes Hx Seizures: Yes Hx Epilepsy: Yes Hx Tremors: Yes Hx Vertigo: Yes Hx Dizziness: Yes Hx Syncope: Yes Hx Headaches: Yes - occasional Hx Weakness: Yes Hx Fatigue: Yes Review of Systems All Other Systems: limited Physical Exam Vital Signs Date Time Temp Pulse Resp B/P (MAP) Pulse Ox O2 Delivery O2 Flow Rate FiO2 05/19/18 20:55 98.2 63 22 138/58 100 Non-Rebreather 05/19/18 21:15 15.0 100 Sp02 EP Interpretation: reviewed, normal General Appearance: mild distress, other - nonverbal Head: normocephalic Eyes: bilateral eye normal inspection, bilateral eye PERRL ENT: normal ENT inspection Neck: normal inspection Respiratory: decreased breath sounds, crackles Cardiovascular #1: regular rate, rhythm, no edema Gastrointestinal: normal inspection Rectal: deferred Genitourinary: no CVA tenderness Musculoskeletal: normal inspection Neurologic: other - nonverbal Psychiatric: other - nonverbal Skin: normal inspection Lymphatic: normal inspection Procedures Critical Care Time Critical Care Time i. I feel this is a highly complex case requiring extensive working including EKG/Rhythm strip, Xray/CT/US, Blood/urine lab work, repeat exams while in ED, and administration of strong opiates/narcotics for pain control, admission to hospital or close patient follow up. Total time: 45 min bedside evaluation and treatment excludes procedures (EKG). Reason for critical care: hypoxia, hypercapnia, AMS, hyponatremia Possible complications: hypotension, hypertension, VA, shock, arrhythmias, metabolic acidosis, end organ damage, respiratory failure. Interventions: labs, EKG, CXR, nebs, ABG, BiPAP. abx. lasix. reassessment after BIPAP. Course: patient presenting with AMS, hypoxic. h/o COPD and CHF. started on nebs. CXR shows CHF/pneumonia. ABG shows hypercapnia. started on BIPAP. given lasix. given abx. started on maintenance IVFS with KCL. Consultations: nursing staff, EMS, family Performed by: Dr Victoria Tolerated well condition = critical j. because of unstable vital signs this patient had a condition that could potentially threaten life or limb. I feel this is a critical patient who required my full attention while patient was considered critical. Total Critical Care Time excluding procedures was greater than 35 minutes Medical Decision Making Diagnostic Impression: Primary Impression: Respiratory distress Additional Impressions: Acute diastolic CHF (congestive heart failure) COPD (chronic obstructive pulmonary disease) Qualified Codes: J44.9 - Chronic obstructive pulmonary disease, unspecified Hypercapnia Hyponatremia ER Course Hospital Course 77-year-old F presenting to ED with SOB. h/o COPD and CHF Differential diagnoses include: Pneumonia, CHF exacerbation, pneumothorax, fluid overload Clinical course Patient placed on stretcher. On monitoring analyst with stable vitals. After initial history and physical, I ordered nebulizer treatments. I ordered labs, IV fluids, EKG, chest x-ray, blood cultures, UA. Labs - minimal leukocytosis noted, hemoglobin/hematocrit stable, Na 125, K 3.3, lactate okay, troponins negative, BNP elevated CXR - cardiomegaly. bilaterla effusion vs. PNA EKG - aflutter, no acute ischemic changes interpreted by me ABG shows PCO2 76 Started on BiPAP. Respiratory status improved. Given Lasix started on IV fluid maintenance with potassium Started on antibiotics Case discussed with Dr. Mendoza and he agreed to the patient to his service for further care and support I feel this is a highly complex case requiring extensive working including EKG/ Rhythm strip, Xray/CT/US, Blood/urine lab work, repeat exams while in ED, and administration of strong opiates/narcotics for pain control, admission to hospital or close patient follow up. Diagnosis - COPD exacerbation, respiratory distress, acute CHF, hypercapnia, hyponatermia Patient admitted to SDU in critical condition Labs Test 05/19/18 21:13 05/19/18 21:18 Arterial Blood pH 7.312 (7.350-7.450) Arterial Blood Partial Pressure CO2 74.0 mmHg (35.0-45.0) Arterial Blood Partial Pressure O2 117.2 mmHg (75.0-100.0) Arterial Blood HCO3 36.6 mmol/L (22.0-26.0) Arterial Blood Oxygen Saturation 98.0 % (95-100) Arterial Blood Base Excess 8.2 (-2-2) Ian Test Positive White Blood Count 11.1 K/UL (4.8-10.8) Red Blood Count 3.82 M/UL (4.20-5.40) Hemoglobin 10.7 G/DL (12.0-16.0) Hematocrit 32.1 % (37.0-47.0) Mean Corpuscular Volume 84 FL (80-99) Mean Corpuscular Hemoglobin 28.0 PG (27.0-31.0) Mean Corpuscular Hemoglobin Concent 33.4 G/DL (32.0-36.0) Red Cell Distribution Width 14.0 % (11.6-14.8) Platelet Count 193 K/UL (150-450) Mean Platelet Volume 7.1 FL (6.5-10.1) Neutrophils (%) (Auto) 86.5 % (45.0-75.0) Lymphocytes (%) (Auto) 7.0 % (20.0-45.0) Monocytes (%) (Auto) 5.0 % (1.0-10.0) Eosinophils (%) (Auto) 0.8 % (0.0-3.0) Basophils (%) (Auto) 0.8 % (0.0-2.0) Sodium Level 125 MMOL/L (136-145) Potassium Level 3.3 MMOL/L (3.5-5.1) Chloride Level 84 MMOL/L (98-107) Carbon Dioxide Level 41 MMOL/L (21-32) Anion Gap 1 mmol/L (5-15) Blood Urea Nitrogen 8 mg/dL (7-18) Creatinine 0.5 MG/DL (0.55-1.30) Estimat Glomerular Filtration Rate mL/min (>60) Glucose Level 141 MG/DL (74-106) Lactic Acid Level 0.60 mmol/L (0.4-2.0) Calcium Level 8.2 MG/DL (8.5-10.1) Total Bilirubin 0.5 MG/DL (0.2-1.0) Aspartate Amino Transf (AST/SGOT) 15 U/L (15-37) Alanine Aminotransferase (ALT/SGPT) 11 U/L (12-78) Alkaline Phosphatase 62 U/L (46-116) Total Creatine Kinase 22 U/L (26-308) Creatine Kinase MB 1.3 NG/ML (0.0-3.6) Creatine Kinase MB Relative Index 5.9 Troponin I 0.000 ng/mL (0.000-0.056) Pro-B-Type Natriuretic Peptide 3231 pg/mL (0-125) Total Protein 6.8 G/DL (6.4-8.2) Albumin 2.8 G/DL (3.4-5.0) Globulin 4.0 g/dL Albumin/Globulin Ratio 0.7 (1.0-2.7) EKG Diagnostic Results Rate: normal Rhythm: other - aflutter ST Segments: no acute changes ASA given to the pt in ED: No Rhythm Strip Diag. Results EP Interpretation: yes Rhythm: no ectopy Chest X-Ray Diagnostic Results Chest X-Ray Diagnostic Results : Chest X-Ray Ordered: Yes # of Views/Limited/Complete: 1 View Indication: Shortness of Breath EP Interpretation: Yes Interpretation: no pneumothorax, other - cardiomegaly. pulmonary congestion vs PNA Impression: Other - CHF/PNA Electronically Signed by: Electronically signed by Holden Victoria MD Last Vital Signs Date Time Temp Pulse Resp B/P (MAP) Pulse Ox O2 Delivery O2 Flow Rate FiO2 05/19/18 22:26 68 14 95 Bi-pap 70 05/19/18 21:15 15.0 05/19/18 20:55 98.2 138/58 Status: improved Disposition: ADMITTED INPATIENT Condition: Critical Referrals: Yonathan Mendoza MD (PCP) Holden Victoria MD May 19, 2018 22:59
[2018-05-19 23:21] LABS: APPEARANCE,URINE CLEAR; BILIRUBIN, URINE NEGATIVE (NEGATIVE); GLUCOSE, URINE (UA) NEGATIVE (NEGATIVE); KETONES,URINE NEGATIVE (NEGATIVE); LEUKOCYTE ESTERASE ,URINE NEGATIVE (NEGATIVE); NITRITE,URINE NEGATIVE (NEGATIVE); PH,URINE 6 (4.5-8.0); PROTEIN,URINE 1+ (NEGATIVE); UROBILINOGEN,URINE 1 MG/DL (0.0-1.0)
[2018-05-19] MEDS: NS w/KCl 40mEq 1,000 ML IV SCH (23:28)
[2018-05-19 23:31] LABS: COLOR,URINE YELLOW
[2018-05-20] VITALS (7 sets, daily range): BP systolic 117–143; BP diastolic 51–67
[2018-05-20] MEDS: Albuterol ud Inhalation HHN SCH (00:09)
[2018-05-20] MEDS: Ipratropium 0.02% Inh Soln 2.5ml UD HHN SCH (00:09)
[2018-05-20] MEDS ORDERED: LORazepam Inj 2mg/ml 1ml IV ONE (02:00)
--- NOTE | 2018-05-20 09:18 | Diagnostic Imaging Report ---
Indication: Shortness of breath Technique: One view of the chest Comparison: 04/16/2018 Findings: There is increasing opacity in the right lung base, likely reflecting increasing pleural fluid, possibly a component of increased consolidation as well. There is a large left pleural effusion again demonstrated, may be slightly increased. There is generalized mild chronic appearing interstitial prominence. The heart is enlarged. Impression: Right basilar opacity, likely combination of pleural fluid and infiltrate, increased from 04/16/2018 Large left pleural effusion, may be slightly increased from 04/16/2018. Generalized interstitial prominence, may be combination of interstitial edema and chronic interstitial changes This agrees with the preliminary interpretation provided overnight by [facility] teleradiology service.
[2018-05-20] MEDS ORDERED: Miralax 17gm pkt ORAL PRN (10:30)
[2018-05-20] MEDS ORDERED: Albuterol/Ipratropium 3ml neb HHN PRN (10:30)
--- NOTE | 2018-05-20 11:05 | Consultation ---
History of Present Illness General Date patient seen: May 20, 2018 Chief Complaint: Dyspnea/Respdistress Present Illness HPI 77-year-old female, history of hypertension, COPD, atrial flutter, seizure disorder, depression/schizophrenia, history of alcohol abuse, coming from [facility] for dyspnea. Patient was found to have acute pulmonary edema and was started on BIPAP and admitted to [facility] for further work up. she is somnolent now and seem to be tolerating BIPAP very well. Allergies: Coded Allergies: PIPERACILLIN (Unverified Allergy, Unknown, 03/10/18) TAZOBACTAM (Unverified Allergy, Unknown, 03/10/18) Medication History Scheduled Amiodarone Hcl* (Pacerone*), 200 MG ORAL DAILY Apixaban (Eliquis), 5 MG ORAL BID Diltiazem HCl (Diltiazem HCl), 90 MG ORAL Q8HR Furosemide* (Lasix*), 40 MG ORAL DAILY, (Reported) Furosemide* (Lasix*), 40 MG ORAL TWICE A DAY Guaifenesin* (Guaifenesin), 5 ML ORAL Q6H, (Reported) Lisinopril (Lisinopril*), 5 MG ORAL DAILY, (Reported) Mirtazapine* (Mirtazapine*), 15 MG ORAL BEDTIME Pantoprazole* (Protonix*), 40 MG ORAL EVERY 12 HOURS Potassium Chloride (Potassium Chloride), 10 MEQ ORAL DAILY, (Reported) Risperidone* (Risperdal*), 2 MG ORAL BEDTIME Risperidone* (Risperdal*), 2 MG ORAL BEDTIME Scheduled PRN Acetaminophen With Codeine (T#3) (Tylenol #3 Tab*), 1 TAB ORAL Q4H PRN for For Pain, (Reported) Acetaminophen* (Acetaminophen 325MG Tablet*), 325 MG ORAL Q4H PRN for Fever/ Headache/Mild Pain, (Reported) Zolpidem Tartrate* (Ambien*), 5 MG ORAL BEDTIME PRN for Insomnia, (Reported) Miscellaneous Medications Benzocaine/Menthol (Chloraseptic Max Loz[place]), 1 EACH MM, (Reported) Ipratropium/Albuterol Sulfate (DuoNeb 0.5-3(2.5)mg/3ml), 3 ML HHN, (Reported) Phenol/Glycerin (Chloraseptic Max [place]), 30 ML MM, (Reported) Patient History Healthcare decision maker Resuscitation status Full Code Advanced Directive on File No Past Medical/Surgical History Past Medical/Surgical History: (1) Dementia (2) CAD (coronary artery disease) (3) Seizure disorder (4) H/O ETOH abuse (5) Schizophrenia (6) Intractable back pain (7) Wheelchair bound (8) Major depression Review of Systems All Other Systems: negative except mentioned in HPI Physical Exam General Appearance: WD/WN Lines, tubes and drains: peripheral HEENT: normocephalic, atraumatic Neck: non-tender, normal alignment Respiratory/Chest: chest wall non-tender, rhonchi - left, rhonchi - right Breasts: no masses Cardiovascular/Chest: normal peripheral pulses Abdomen: normal bowel sounds, soft Genitourinary/Rectal: normal genital exam, normal rectal exam Skin Exam: normal pigmentation 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 Last 24 Hour Vital Signs Date Time Temp Pulse Resp B/P (MAP) Pulse Ox O2 Delivery O2 Flow Rate FiO2 05/20/18 10:23 75 20 99 Full Face 40 05/20/18 10:09 Bi-pap 60.0 Bi-pap 60.0 05/20/18 08:30 73 24 100 Full Face 60 05/20/18 08:21 99.1 73 23 117/58 (77) 100 05/20/18 07:50 69 21 100 Full Face 60 05/20/18 07:45 98.1 62 14 120/51 100 Bi-pap 15.0 60 05/20/18 07:26 98.1 62 14 120/51 100 Bi-pap 15.0 60 05/20/18 06:05 98.0 67 24 138/58 100 Bi-pap 60 05/20/18 04:35 67 24 100 Full Face 60 05/20/18 03:11 71 27 94 Full Face 60 05/20/18 01:35 98.0 65 27 121/62 100 Bi-pap 15.0 60 05/20/18 00:14 64 27 100 Bi-pap 60 05/19/18 23:30 60 27 98 Facial 60 05/19/18 22:46 66 14 95 Bi-pap 70 05/19/18 22:26 68 14 95 Bi-pap 70 05/19/18 22:26 70 05/19/18 22:02 66 14 98 Facial 70 05/19/18 21:32 21 05/19/18 21:32 68 14 95 Room Air 21 05/19/18 21:15 64 18 Non-Rebreather 15.0 100 05/19/18 21:15 64 18 98 Non-Rebreather 15.0 100 05/19/18 21:15 60 05/19/18 21:10 97.9 66 22 125/60 100 Bi-pap 60 05/19/18 20:55 98.2 63 22 138/58 100 Non-Rebreather 05/19/18 20:53 97.6 65 17 131/56 94 Non-Rebreather 10.0 05/19/18 20:53 65 17 Bi-pap 60 Intake and Output 05/19/18 05/20/18 19:00 07:00 Intake Total 650 ml Balance 650 ml Intake Oral 0 ml IV Total 650 ml Laboratory Tests Test 05/19/18 21:13 05/19/18 21:18 05/19/18 23:00 Arterial Blood pH 7.312 (7.350-7.450) 7.369 (7.350-7.450) Arterial Blood Partial Pressure CO2 74.0 mmHg (35.0-45.0) *H 72.6 mmHg (35.0-45.0) *H Arterial Blood Partial Pressure O2 117.2 mmHg (75.0-100.0) H 147.4 mmHg (75.0-100.0) H Arterial Blood HCO3 36.6 mmol/L (22.0-26.0) H 40.9 mmol/L (22.0-26.0) *H Arterial Blood Oxygen Saturation 98.0 % (95-100) 98.7 % (95-100) Arterial Blood Base Excess 8.2 (-2-2) H 13.1 (-2-2) *H Ian Test Positive Positive White Blood Count 11.1 K/UL (4.8-10.8) H Red Blood Count 3.82 M/UL (4.20-5.40) L Hemoglobin 10.7 G/DL (12.0-16.0) L Hematocrit 32.1 % (37.0-47.0) L Mean Corpuscular Volume 84 FL (80-99) Mean Corpuscular Hemoglobin 28.0 PG (27.0-31.0) Mean Corpuscular Hemoglobin Concent 33.4 G/DL (32.0-36.0) Red Cell Distribution Width 14.0 % (11.6-14.8) Platelet Count 193 K/UL (150-450) Mean Platelet Volume 7.1 FL (6.5-10.1) Neutrophils (%) (Auto) 86.5 % (45.0-75.0) H Lymphocytes (%) (Auto) 7.0 % (20.0-45.0) L Monocytes (%) (Auto) 5.0 % (1.0-10.0) Eosinophils (%) (Auto) 0.8 % (0.0-3.0) Basophils (%) (Auto) 0.8 % (0.0-2.0) Sodium Level 125 MMOL/L (136-145) L Potassium Level 3.3 MMOL/L (3.5-5.1) L Chloride Level 84 MMOL/L (98-107) L Carbon Dioxide Level 41 MMOL/L (21-32) *H Anion Gap 1 mmol/L (5-15) L Blood Urea Nitrogen 8 mg/dL (7-18) Creatinine 0.5 MG/DL (0.55-1.30) L Estimat Glomerular Filtration Rate mL/min (>60) Glucose Level 141 MG/DL (74-106) H Lactic Acid Level 0.60 mmol/L (0.4-2.0) Calcium Level 8.2 MG/DL (8.5-10.1) L Total Bilirubin 0.5 MG/DL (0.2-1.0) Aspartate Amino Transf (AST/SGOT) 15 U/L (15-37) Alanine Aminotransferase (ALT/SGPT) 11 U/L (12-78) L Alkaline Phosphatase 62 U/L (46-116) Total Creatine Kinase 22 U/L (26-308) L Creatine Kinase MB 1.3 NG/ML (0.0-3.6) Creatine Kinase MB Relative Index 5.9 Troponin I 0.000 ng/mL (0.000-0.056) Pro-B-Type Natriuretic Peptide 3231 pg/mL (0-125) H Total Protein 6.8 G/DL (6.4-8.2) Albumin 2.8 G/DL (3.4-5.0) L Globulin 4.0 g/dL Albumin/Globulin Ratio 0.7 (1.0-2.7) L Urine Color Yellow Urine Appearance Clear Urine pH 6 (4.5-8.0) Urine Specific [place] 1.015 (1.005-1.035) Urine Protein 1+ (NEGATIVE) H Urine Glucose (UA) Negative (NEGATIVE) Urine Ketones Negative (NEGATIVE) Urine Blood 2+ (NEGATIVE) H Urine Nitrite Negative (NEGATIVE) Urine Bilirubin Negative (NEGATIVE) Urine Urobilinogen 1 MG/DL (0.0-1.0) H Urine Leukocyte Esterase Negative (NEGATIVE) Urine RBC 2-4 /HPF (0 - 2) H Urine WBC 0-2 /HPF (0 - 2) Urine Squamous Epithelial Cells Few /LPF (NONE/OCC) Urine Bacteria None /HPF (NONE) Microbiology Date/Time Source Procedure Growth Status 05/19/18 23:00 Nasal Nares Influenza Types A,B Antigen (ENA) - Final Complete Height (Feet): 5 Height (Inches): 2.00 Weight (Pounds): 170 Medications Current Medications Medications (Trade) Dose Ordered Sig/Ibrahima Route PRN Reason Start Time Stop Time Status Last Admin Dose Admin Acetaminophen (Tylenol) 650 mg Q4H PRN ORAL Fever 05/20/18 10:30 06/19/18 10:29 Albuterol/ Ipratropium (Albuterol/ Ipratropium) 3 ml Q4H PRN HHN Shortness of Breath 05/20/18 10:30 05/25/18 10:29 Amiodarone HCl (Cordarone) 200 mg DAILY ORAL 05/21/18 09:00 06/20/18 08:59 Apixaban (Eliquis) 5 mg BID ORAL 05/20/18 18:00 06/19/18 17:59 Dextrose (Dextrose 50%) 25 ml Q30M PRN IV Hypoglycemia 05/20/18 10:30 06/19/18 10:29 Dextrose (Dextrose 50%) 50 ml Q30M PRN IV Hypoglycemia 05/20/18 10:30 06/19/18 10:29 Diltiazem HCl (Cardizem) 90 mg Q8HR ORAL 05/20/18 14:00 06/19/18 13:59 Furosemide (Lasix) 40 mg EVERY 8 HOURS IV 05/20/18 10:00 06/19/18 09:59 05/20/18 10:52 Mirtazapine (Remeron) 15 mg BEDTIME ORAL 05/20/18 21:00 06/19/18 20:59 Ondansetron HCl (Zofran) 4 mg Q6H PRN IVP Nausea & Vomiting 05/20/18 10:30 06/19/18 10:29 Polyethylene Glycol (Miralax) 17 gm DAILYPRN PRN ORAL Constipation 05/20/18 10:30 06/19/18 10:29 Risperidone (RisperDAL) 2 mg BEDTIME ORAL 05/20/18 21:00 06/19/18 20:59 Temazepam (Restoril) 15 mg HSPRN PRN ORAL Insomnia 05/20/18 21:00 05/27/18 20:59 Assessment/Plan Problem List: (1) Respiratory failure, acute ICD Codes: J96.00 - Acute respiratory failure, unspecified whether with hypoxia or hypercapnia SNOMED: 57400734 (2) Acute encephalopathy ICD Codes: G93.40 - Encephalopathy, unspecified SNOMED: 7525301 (3) Acute diastolic CHF (congestive heart failure) ICD Codes: I50.31 - Acute diastolic congestive heart failure SNOMED: 387974499 (4) COPD (chronic obstructive pulmonary disease) ICD Codes: J44.9 - Chronic obstructive pulmonary disease, unspecified SNOMED: 67323395 Qualifiers: Qualified Codes: J44.9 - Chronic obstructive pulmonary disease, unspecified (5) Atrial fibrillation with RVR ICD Codes: I48.91 - Atrial fibrillation with RVR SNOMED: 133011642939338 (6) Schizophrenia ICD Codes: F20.9 - Schizophrenia, unspecified SNOMED: 47377331 (7) Major depression ICD Codes: F32.9 - Major depressive disorder, single episode, unspecified SNOMED: 31637249, 675892948 Assessment/Plan titrate bipap lasix K supplement cardiology evaluation cxr and BNP in am psych evaluation Mendel Sierra MD May 20, 2018 11:05
[2018-05-20] MEDS: NS w/KCl 40mEq 1,000 ML IV SCH (12:33)
--- NOTE | 2018-05-20 12:40 | Consultation ---
History of Present Illness General Chief Complaint: Dyspnea/Respdistress Present Illness HPI 77-year-old female presents ED for evaluation. the pt pw altered level of consciousness. The pt is was on bipap and confused. the pt gets agitated intermittently. The pt has waxing and waning of consciousness. Allergies: Coded Allergies: PIPERACILLIN (Unverified Allergy, Unknown, 03/10/18) TAZOBACTAM (Unverified Allergy, Unknown, 03/10/18) Medication History Scheduled Amiodarone Hcl* (Pacerone*), 200 MG ORAL DAILY Apixaban (Eliquis), 5 MG ORAL BID Diltiazem HCl (Diltiazem HCl), 90 MG ORAL Q8HR Furosemide* (Lasix*), 40 MG ORAL DAILY, (Reported) Furosemide* (Lasix*), 40 MG ORAL TWICE A DAY Guaifenesin* (Guaifenesin), 5 ML ORAL Q6H, (Reported) Lisinopril (Lisinopril*), 5 MG ORAL DAILY, (Reported) Mirtazapine* (Mirtazapine*), 15 MG ORAL BEDTIME Pantoprazole* (Protonix*), 40 MG ORAL EVERY 12 HOURS Potassium Chloride (Potassium Chloride), 10 MEQ ORAL DAILY, (Reported) Risperidone* (Risperdal*), 2 MG ORAL BEDTIME Risperidone* (Risperdal*), 2 MG ORAL BEDTIME Scheduled PRN Acetaminophen With Codeine (T#3) (Tylenol #3 Tab*), 1 TAB ORAL Q4H PRN for For Pain, (Reported) Acetaminophen* (Acetaminophen 325MG Tablet*), 325 MG ORAL Q4H PRN for Fever/ Headache/Mild Pain, (Reported) Zolpidem Tartrate* (Ambien*), 5 MG ORAL BEDTIME PRN for Insomnia, (Reported) Miscellaneous Medications Benzocaine/Menthol (Chloraseptic Max Loz[place]), 1 EACH MM, (Reported) Ipratropium/Albuterol Sulfate (DuoNeb 0.5-3(2.5)mg/3ml), 3 ML HHN, (Reported) Phenol/Glycerin (Chloraseptic Max [place]), 30 ML MM, (Reported) Patient History Limited by: medical condition History Provided By: Medical Record, PMD Healthcare decision maker Resuscitation status Full Code Advanced Directive on File No Past Medical/Surgical History Past Medical/Surgical History: (1) HTN (hypertension) (2) Recurrent falls (3) Atrial flutter (4) CAD (coronary artery disease) (5) Dementia (6) Hyponatremia (7) Constipation (8) Accelerated hypertension (9) Atrial fibrillation with RVR (10) Pulmonary edema (11) Seizure disorder (12) H/O ETOH abuse (13) Acute diastolic CHF (congestive heart failure) (14) UTI (lower urinary tract infection) (15) COPD (chronic obstructive pulmonary disease) (16) Bipolar depression (17) Cerebral vascular disease (18) Hypovolemic shock (19) Hemorrhagic shock (20) Hypokalemia (21) Gout (22) Bacteremia (23) Gastrointestinal bleeding (24) Major depression (25) Sepsis (26) ATN (acute tubular necrosis) (27) Healthcare-associated pneumonia (28) Wheelchair bound (29) Anemia, chronic disease (30) Acute encephalopathy (31) Intractable back pain (32) Respiratory failure, acute (33) Deep vein thrombosis (DVT) of left lower extremity (34) CHF (congestive heart failure) (35) Pacemaker (36) Schizophrenia Review of Systems Psychiatric: Reports: anxiety, depressed feelings, emotional problems Physical Exam General Appearance: no apparent distress, alert, lethargic - waxing and waning , confused Neurologic: depressed affect Last 24 Hour Vital Signs Date Time Temp Pulse Resp B/P (MAP) Pulse Ox O2 Delivery O2 Flow Rate FiO2 05/20/18 12:00 40 05/20/18 12:00 97.5 83 21 143/67 (92) 99 05/20/18 10:23 75 20 99 Full Face 40 05/20/18 10:09 Bi-pap 60.0 Bi-pap 60.0 05/20/18 08:30 73 24 100 Full Face 60 05/20/18 08:21 99.1 73 23 117/58 (77) 100 05/20/18 07:50 69 21 100 Full Face 60 05/20/18 07:45 98.1 62 14 120/51 100 Bi-pap 15.0 60 05/20/18 07:26 98.1 62 14 120/51 100 Bi-pap 15.0 60 05/20/18 06:05 98.0 67 24 138/58 100 Bi-pap 60 05/20/18 04:35 67 24 100 Full Face 60 05/20/18 03:11 71 27 94 Full Face 60 05/20/18 01:35 98.0 65 27 121/62 100 Bi-pap 15.0 60 05/20/18 00:14 64 27 100 Bi-pap 60 05/19/18 23:30 60 27 98 Facial 60 05/19/18 22:46 66 14 95 Bi-pap 70 05/19/18 22:26 68 14 95 Bi-pap 70 05/19/18 22:26 70 05/19/18 22:02 66 14 98 Facial 70 05/19/18 21:32 21 05/19/18 21:32 68 14 95 Room Air 21 05/19/18 21:15 64 18 Non-Rebreather 15.0 100 05/19/18 21:15 64 18 98 Non-Rebreather 15.0 100 05/19/18 21:15 60 05/19/18 21:10 97.9 66 22 125/60 100 Bi-pap 60 05/19/18 20:55 98.2 63 22 138/58 100 Non-Rebreather 05/19/18 20:53 97.6 65 17 131/56 94 Non-Rebreather 10.0 05/19/18 20:53 65 17 Bi-pap 60 Intake and Output 05/19/18 05/20/18 19:00 07:00 Intake Total 650 ml Balance 650 ml Intake Oral 0 ml IV Total 650 ml Laboratory Tests Test 05/19/18 21:13 05/19/18 21:18 05/19/18 23:00 05/20/18 11:05 Arterial Blood pH 7.312 (7.350-7.450) 7.369 (7.350-7.450) Arterial Blood Partial Pressure CO2 74.0 mmHg (35.0-45.0) *H 72.6 mmHg (35.0-45.0) *H Arterial Blood Partial Pressure O2 117.2 mmHg (75.0-100.0) H 147.4 mmHg (75.0-100.0) H Arterial Blood HCO3 36.6 mmol/L (22.0-26.0) H 40.9 mmol/L (22.0-26.0) *H Arterial Blood Oxygen Saturation 98.0 % (95-100) 98.7 % (95-100) Arterial Blood Base Excess 8.2 (-2-2) H 13.1 (-2-2) *H Ian Test Positive Positive White Blood Count 11.1 K/UL (4.8-10.8) H Red Blood Count 3.82 M/UL (4.20-5.40) L Hemoglobin 10.7 G/DL (12.0-16.0) L Hematocrit 32.1 % (37.0-47.0) L Mean Corpuscular Volume 84 FL (80-99) Mean Corpuscular Hemoglobin 28.0 PG (27.0-31.0) Mean Corpuscular Hemoglobin Concent 33.4 G/DL (32.0-36.0) Red Cell Distribution Width 14.0 % (11.6-14.8) Platelet Count 193 K/UL (150-450) Mean Platelet Volume 7.1 FL (6.5-10.1) Neutrophils (%) (Auto) 86.5 % (45.0-75.0) H Lymphocytes (%) (Auto) 7.0 % (20.0-45.0) L Monocytes (%) (Auto) 5.0 % (1.0-10.0) Eosinophils (%) (Auto) 0.8 % (0.0-3.0) Basophils (%) (Auto) 0.8 % (0.0-2.0) Sodium Level 125 MMOL/L (136-145) L Potassium Level 3.3 MMOL/L (3.5-5.1) L Chloride Level 84 MMOL/L (98-107) L Carbon Dioxide Level 41 MMOL/L (21-32) *H Anion Gap 1 mmol/L (5-15) L Blood Urea Nitrogen 8 mg/dL (7-18) Creatinine 0.5 MG/DL (0.55-1.30) L Estimat Glomerular Filtration Rate mL/min (>60) Glucose Level 141 MG/DL (74-106) H Lactic Acid Level 0.60 mmol/L (0.4-2.0) Calcium Level 8.2 MG/DL (8.5-10.1) L Total Bilirubin 0.5 MG/DL (0.2-1.0) Aspartate Amino Transf (AST/SGOT) 15 U/L (15-37) Alanine Aminotransferase (ALT/SGPT) 11 U/L (12-78) L Alkaline Phosphatase 62 U/L (46-116) Total Creatine Kinase 22 U/L (26-308) L Creatine Kinase MB 1.3 NG/ML (0.0-3.6) Creatine Kinase MB Relative Index 5.9 Troponin I 0.000 ng/mL (0.000-0.056) Pending Pro-B-Type Natriuretic Peptide 3231 pg/mL (0-125) H Total Protein 6.8 G/DL (6.4-8.2) Albumin 2.8 G/DL (3.4-5.0) L Globulin 4.0 g/dL Albumin/Globulin Ratio 0.7 (1.0-2.7) L Urine Color Yellow Urine Appearance Clear Urine pH 6 (4.5-8.0) Urine Specific [place] 1.015 (1.005-1.035) Urine Protein 1+ (NEGATIVE) H Urine Glucose (UA) Negative (NEGATIVE) Urine Ketones Negative (NEGATIVE) Urine Blood 2+ (NEGATIVE) H Urine Nitrite Negative (NEGATIVE) Urine Bilirubin Negative (NEGATIVE) Urine Urobilinogen 1 MG/DL (0.0-1.0) H Urine Leukocyte Esterase Negative (NEGATIVE) Urine RBC 2-4 /HPF (0 - 2) H Urine WBC 0-2 /HPF (0 - 2) Urine Squamous Epithelial Cells Few /LPF (NONE/OCC) Urine Bacteria None /HPF (NONE) Test 05/20/18 12:22 Arterial Blood pH 7.422 (7.350-7.450) Arterial Blood Partial Pressure CO2 60.9 mmHg (35.0-45.0) *H Arterial Blood Partial Pressure O2 71.7 mmHg (75.0-100.0) L Arterial Blood HCO3 38.8 mmol/L (22.0-26.0) H Arterial Blood Oxygen Saturation 94.0 % (95-100) L Arterial Blood Base Excess 12.2 (-2-2) *H Ian Test Positive Microbiology Date/Time Source Procedure Growth Status 05/19/18 23:00 Nasal Nares Influenza Types A,B Antigen (ENA) - Final Complete Height (Feet): 5 Height (Inches): 2.00 Weight (Pounds): 170 Medications Current Medications Medications (Trade) Dose Ordered Sig/Ibrahima Route PRN Reason Start Time Stop Time Status Last Admin Dose Admin Acetaminophen (Tylenol) 650 mg Q4H PRN ORAL Fever 05/20/18 10:30 06/19/18 10:29 Albuterol/ Ipratropium (Albuterol/ Ipratropium) 3 ml Q4H PRN HHN Shortness of Breath 05/20/18 10:30 05/25/18 10:29 Amiodarone HCl (Cordarone) 200 mg DAILY ORAL 05/21/18 09:00 06/20/18 08:59 Apixaban (Eliquis) 5 mg BID ORAL 05/20/18 18:00 06/19/18 17:59 Dextrose (Dextrose 50%) 25 ml Q30M PRN IV Hypoglycemia 05/20/18 10:30 06/19/18 10:29 Dextrose (Dextrose 50%) 50 ml Q30M PRN IV Hypoglycemia 05/20/18 10:30 06/19/18 10:29 Diltiazem HCl (Cardizem) 90 mg Q8HR ORAL 05/20/18 14:00 06/19/18 13:59 Furosemide (Lasix) 40 mg EVERY 8 HOURS IV 05/20/18 10:00 06/19/18 09:59 05/20/18 10:52 Mirtazapine (Remeron) 15 mg BEDTIME ORAL 05/20/18 21:00 06/19/18 20:59 Ondansetron HCl (Zofran) 4 mg Q6H PRN IVP Nausea & Vomiting 05/20/18 10:30 06/19/18 10:29 Polyethylene Glycol (Miralax) 17 gm DAILYPRN PRN ORAL Constipation 05/20/18 10:30 06/19/18 10:29 Potassium Chloride 100 ml @ 100 mls/hr Q1HR IVPB 05/20/18 11:00 05/20/18 14:59 05/20/18 11:26 Risperidone (RisperDAL) 2 mg BEDTIME ORAL 05/20/18 21:00 06/19/18 20:59 Temazepam (Restoril) 15 mg HSPRN PRN ORAL Insomnia 05/20/18 21:00 05/27/18 20:59 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 (2) Major depression ICD Codes: F32.9 - Major depressive disorder, single episode, unspecified SNOMED: 97256481, [id number] (3) Schizophrenia ICD Codes: F20.9 - Schizophrenia, unspecified SNOMED: 82401254 Status: stable Assessment/Plan Risperdal 2mg qhs ativan prn raise the head Luiz Morrison MD May 20, 2018 12:40
[2018-05-20] MEDS: dilTIAZem HCl 90mg tab ORAL SCH ×2 (13:45→21:04)
--- NOTE | 2018-05-20 13:54 | History & Physical ---
History and Physical History & Physicial Dictated for Int Med-Dr braswell no. [id number] Juan Dutta MD May 20, 2018 13:54
--- NOTE | 2018-05-20 17:42 | Cardiology Report ---
APPROVED REPORT EXAM: Two-dimensional and M-mode echocardiogram with Doppler and color Doppler. INDICATION LV FUNCTION M-Mode DIMENSIONS IVSd1.0 (0.7-1.1cm)Left Atrium (MM)4.5 (1.6-4.0cm) LVDd5.6 (3.5-5.6cm)Aortic Root3.0 (2.0-3.7cm) PWd1.0 (0.7-1.1cm)Aortic Cusp Exc.1.5 (1.5-2.0cm) IVSs1.1 cm LVDs4.0 (2.5-4.0cm) PWs1.7 cm Technically difficult study due to poor acoustical windows. Normal left ventricular chamber size, systolic function and wall motion to extent visualized. Left ventricular ejection fraction estimated to be55%. Study quality precludes accurate assessment of regional wall motion. Mild left ventricular hypertrophy. Small posterior pericardial effusion. Severe left atrial enlargement . Right cardiac chamber sizes are within normal limits. Focal aortic valve sclerosis with reduced cusp excursion. Thickened mitral valve leaflets with reduced excursion. 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 Mitral annulus and aortic root calcification. Pulmonic valve not well visualized. Normal tricuspid valve structure. IVC at size 2.0 cm without physiologic collapse,suggestive of increased RA pressure.. A color flow and spectral Doppler study was performed and revealed: Mild aortic regurgitation. Peak aortic valve gradient of 12 mm Hg and a mean of 6 mmHg. Aortic valve area 1.7 cm2 calculated by continuity equation. Peak mitral valve gradient of 14 mm Hg and a mean of 5 mmHg. Moderate mitral regurgitation. Mitral inflow velocities indicates possible pseudo normalization pattern implying moderately elevated left atrial pressure (Grade II ) Mild tricuspid regurgitation. Tricuspid systolic velocities suggests peak right ventricular systolic pressure of 56 mmHg,consistent with moderate pulmonary hypertension.
--- NOTE | 2018-05-20 17:45 | History and Physical Report ---
DATE OF ADMISSION: 05/19/2018 CHIEF COMPLAINT: The patient is a 77-year-old white female, who presents with chief complaint of shortness of breath and altered mental status. HISTORY OF PRESENT ILLNESS: The patient has a history of atrial flutter and congestive heart failure. The patient was last admitted to [facility] in April 2018. Please see history and physical and discharge summary dictated at that time. The patient is a resident of [facility] senior care facility. According to staff at [facility], the patient has had increasing shortness of breath. The patient also began to have altered mental status. The patient was transferred to [facility]. The patient was found to be hypoxic with oxygen saturation in the 80s. The patient is admitted for hypoxemia and altered mental status. REVIEW OF SYSTEMS: CONSTITUTIONAL: The patient denies weight loss or weight gain. The patient denies fevers or chills. HEENT: The patient denies ear or throat pain. The patient denies headache. CARDIOVASCULAR: The patient denies palpitations or chest pain. CHEST: The patient complains of shortness of breath as above. The patient denies wheezes. ABDOMEN: The patient denies nausea, vomiting, diarrhea, or constipation. GENITOURINARY: The patient denies dysuria or increased frequency of urination. NEUROMUSCULAR: The patient denies seizures or generalized weakness. PAST MEDICAL HISTORY: Significant for: 1. Atrial flutter. 2. Congestive heart failure. 3. Chronic obstructive pulmonary disease. 4. History of intraventricular pacemaker. 5. Coronary artery disease. 6. Hypertension. 7. Seizure disorder. 8. Paranoid schizophrenia. 9. Depression. PAST SURGICAL HISTORY: Significant for intraventricular pacemaker implantation. CURRENT MEDICATIONS: From [facility], 1. Tylenol 650 mg p.o. q.4. h. p.r.n. 2. Amiodarone 200 mg p.o. daily. 3. Diltiazem 90 mg p.o. q.8 h. 4. Eliquis 5 mg p.o. twice daily. 5. DuoNeb nebulized q.4 h. p.r.n. 6. Lasix 40 mg p.o. daily. 7. Mirtazapine 15 mg p.o. nightly. 8. Protonix 40 mg p.o. daily. 9. Risperdal 2 mg p.o. nightly. 10. Tylenol No. 3 p.o. q.4 h. p.r.n. ALLERGIES: Piperacillin and tazobactam. SOCIAL HISTORY: The patient is a . The patient denies tobacco or alcohol use. The patient is a resident of [facility]. PHYSICAL EXAMINATION: VITAL SIGNS: Temperature 97.6, respirations 17, pulse 65, and blood pressure 131/56. Oxygen saturation 94% on BiPAP. GENERAL: The patient is a well-developed and well-nourished white female, in no apparent distress. HEENT: Eyes, pupils are equal and responsive to light and accommodation. Extraocular movements are intact. NECK: Supple without lymphadenopathy. CHEST: Lungs with diffuse wheezes bilaterally. Otherwise, without wheezes or rales. CARDIOVASCULAR: Irregular rhythm and irregular rate. S1 and S2 normal without murmurs, rubs, or gallops. ABDOMEN: Soft, nontender, and nondistended. Positive bowel sounds. No evidence of hepatosplenomegaly. Currently, no rebound or guarding noted. EXTREMITIES: Negative for clubbing, cyanosis, or edema. RECTAL/GENITAL: Refused. NEUROLOGIC: Cranial nerves II through XII are grossly intact without focal deficits. Motor strength is 5/5 bilaterally. Deep tendon reflexes are 2+ plantar. DIAGNOSTIC DATA: Chest x-ray showed right lower lobe opacity. EKG showed atrial flutter at approximately 63 beats per minute. LABORATORY STUDIES: WBC 11.1, hemoglobin 10.7, hemoglobin 32.1, and platelets 193,000. Sodium 125, potassium 3.3, chloride 84, CO2 , BUN 8, and creatinine 0.5. Glucose 141. BNP elevated at 3231. Troponin is 0.0. ASSESSMENT: This is a 77-year-old white female with: 1. Right lower lobe pneumonia. 2. Altered mental status. 3. Respiratory failure. 4. Hypoxia. 5. Atrial flutter. 6. Congestive heart failure. 7. Chronic obstructive pulmonary disease. 8. Coronary artery disease. 9. Hypertension. 10. Seizure disorder. 11. Paranoid schizophrenia. 12. Depression. TREATMENT: 1. Respiratory failure/right lower lobe pneumonia. A Pulmonary consultation has been obtained with Dr. Mendel Sierra. The patient has been started empirically on intravenous Solu-Medrol. We will follow recommendation of Pulmonary. The patient is currently on a full facemask on BiPAP. We will follow recommendation of Pulmonary, Dr. Sierra. 2. Atrial flutter/congestive heart failure. A Cardiology consultation has been obtained with Dr. Akbar Reno. 3. Atrial flutter. The patient has an interventricular pacemaker in place. 4. Chronic obstructive pulmonary disease. As above, a Pulmonary consultation has been obtained with Dr. Mendel Sierra. 5. Coronary artery disease. 6. Hypertension. The patient is currently hypotensive. 7. Seizure disorder. 8. Paranoid schizophrenia. 9. Depression. Juan Dutta M.D. DR: CASSANDRA JOB#: [id number] CC:
--- NOTE | 2018-05-20 17:51 | Cardiology Report ---
APPROVED REPORT EKG Measurement Heart [id number] [place] P112 [id number] Suspect arm lead reversal, interpretation assumes no reversal Atrial flutter with variable AV block with ventricular escape complexes Right axis deviation Septal infarct, age undetermined Abnormal ECG
[2018-05-20] MEDS: Eliquis 2.5mg tablet ORAL SCH (17:58)
--- NOTE | 2018-05-20 20:08 | Cardiology Progress Note ---
Assessment/Plan Assessment/Plan consider thoracetesis full note dicated [id number] Objective Last 24 Hour Vital Signs Date Time Temp Pulse Resp B/P (MAP) Pulse Ox O2 Delivery O2 Flow Rate FiO2 05/20/18 19:11 80 20 95 Full Face 40 05/20/18 16:51 73 20 98 Full Face 40 05/20/18 16:00 Bi-pap 40.0 Bi-pap 40.0 05/20/18 16:00 40 05/20/18 16:00 70 05/20/18 16:00 98.3 72 18 122/53 (76) 98 05/20/18 15:23 97.5 05/20/18 15:20 75 17 97 Full Face 40 05/20/18 13:48 79 26 99 Full Face 40 05/20/18 13:45 83 143/67 05/20/18 12:00 40 05/20/18 12:00 40 05/20/18 12:00 Bi-pap 40.0 Bi-pap 40.0 05/20/18 12:00 97.5 83 21 143/67 (92) 99 05/20/18 11:57 79 05/20/18 10:23 75 20 99 Full Face 40 05/20/18 10:09 Bi-pap 60.0 Bi-pap 60.0 05/20/18 08:30 73 24 100 Full Face 60 05/20/18 08:21 99.1 73 23 117/58 (77) 100 05/20/18 07:50 69 21 100 Full Face 60 05/20/18 07:45 98.1 62 14 120/51 100 Bi-pap 15.0 60 05/20/18 07:26 98.1 62 14 120/51 100 Bi-pap 15.0 60 05/20/18 06:05 98.0 67 24 138/58 100 Bi-pap 60 05/20/18 04:35 67 24 100 Full Face 60 05/20/18 03:11 71 27 94 Full Face 60 05/20/18 01:35 98.0 65 27 121/62 100 Bi-pap 15.0 60 05/20/18 00:14 64 27 100 Bi-pap 60 05/19/18 23:30 60 27 98 Facial 60 05/19/18 22:46 66 14 95 Bi-pap 70 05/19/18 22:26 68 14 95 Bi-pap 70 05/19/18 22:26 70 05/19/18 22:02 66 14 98 Facial 70 05/19/18 21:32 21 05/19/18 21:32 68 14 95 Room Air 21 05/19/18 21:15 64 18 Non-Rebreather 15.0 100 05/19/18 21:15 64 18 98 Non-Rebreather 15.0 100 05/19/18 21:15 60 05/19/18 21:10 97.9 66 22 125/60 100 Bi-pap 60 05/19/18 20:55 98.2 63 22 138/58 100 Non-Rebreather 05/19/18 20:53 97.6 65 17 131/56 94 Non-Rebreather 10.0 05/19/18 20:53 65 17 Bi-pap 60 Intake and Output 05/19/18 05/20/18 19:00 07:00 Intake Total 650 ml Balance 650 ml Intake Oral 0 ml IV Total 650 ml Laboratory Tests Test 05/19/18 21:13 05/19/18 21:18 05/19/18 23:00 05/20/18 11:05 Arterial Blood pH 7.312 (7.350-7.450) 7.369 (7.350-7.450) Arterial Blood Partial Pressure CO2 74.0 mmHg (35.0-45.0) *H 72.6 mmHg (35.0-45.0) *H Arterial Blood Partial Pressure O2 117.2 mmHg (75.0-100.0) H 147.4 mmHg (75.0-100.0) H Arterial Blood HCO3 36.6 mmol/L (22.0-26.0) H 40.9 mmol/L (22.0-26.0) *H Arterial Blood Oxygen Saturation 98.0 % (95-100) 98.7 % (95-100) Arterial Blood Base Excess 8.2 (-2-2) H 13.1 (-2-2) *H Ain Test Positive Positive White Blood Count 11.1 K/UL (4.8-10.8) H Red Blood Count 3.82 M/UL (4.20-5.40) L Hemoglobin 10.7 G/DL (12.0-16.0) L Hematocrit 32.1 % (37.0-47.0) L Mean Corpuscular Volume 84 FL (80-99) Mean Corpuscular Hemoglobin 28.0 PG (27.0-31.0) Mean Corpuscular Hemoglobin Concent 33.4 G/DL (32.0-36.0) Red Cell Distribution Width 14.0 % (11.6-14.8) Platelet Count 193 K/UL (150-450) Mean Platelet Volume 7.1 FL (6.5-10.1) Neutrophils (%) (Auto) 86.5 % (45.0-75.0) H Lymphocytes (%) (Auto) 7.0 % (20.0-45.0) L Monocytes (%) (Auto) 5.0 % (1.0-10.0) Eosinophils (%) (Auto) 0.8 % (0.0-3.0) Basophils (%) (Auto) 0.8 % (0.0-2.0) Sodium Level 125 MMOL/L (136-145) L Potassium Level 3.3 MMOL/L (3.5-5.1) L Chloride Level 84 MMOL/L (98-107) L Carbon Dioxide Level 41 MMOL/L (21-32) *H Anion Gap 1 mmol/L (5-15) L Blood Urea Nitrogen 8 mg/dL (7-18) Creatinine 0.5 MG/DL (0.55-1.30) L Estimat Glomerular Filtration Rate mL/min (>60) Glucose Level 141 MG/DL (74-106) H Lactic Acid Level 0.60 mmol/L (0.4-2.0) Calcium Level 8.2 MG/DL (8.5-10.1) L Total Bilirubin 0.5 MG/DL (0.2-1.0) Aspartate Amino Transf (AST/SGOT) 15 U/L (15-37) Alanine Aminotransferase (ALT/SGPT) 11 U/L (12-78) L Alkaline Phosphatase 62 U/L (46-116) Total Creatine Kinase 22 U/L (26-308) L Creatine Kinase MB 1.3 NG/ML (0.0-3.6) Creatine Kinase MB Relative Index 5.9 Troponin I 0.000 ng/mL (0.000-0.056) 0.000 ng/mL (0.000-0.056) Pro-B-Type Natriuretic Peptide 3231 pg/mL (0-125) H Total Protein 6.8 G/DL (6.4-8.2) Albumin 2.8 G/DL (3.4-5.0) L Globulin 4.0 g/dL Albumin/Globulin Ratio 0.7 (1.0-2.7) L Urine Color Yellow Urine Appearance Clear Urine pH 6 (4.5-8.0) Urine Specific [place] 1.015 (1.005-1.035) Urine Protein 1+ (NEGATIVE) H Urine Glucose (UA) Negative (NEGATIVE) Urine Ketones Negative (NEGATIVE) Urine Blood 2+ (NEGATIVE) H Urine Nitrite Negative (NEGATIVE) Urine Bilirubin Negative (NEGATIVE) Urine Urobilinogen 1 MG/DL (0.0-1.0) H Urine Leukocyte Esterase Negative (NEGATIVE) Urine RBC 2-4 /HPF (0 - 2) H Urine WBC 0-2 /HPF (0 - 2) Urine Squamous Epithelial Cells Few /LPF (NONE/OCC) Urine Bacteria None /HPF (NONE) Test 05/20/18 12:22 Arterial Blood pH 7.422 (7.350-7.450) Arterial Blood Partial Pressure CO2 60.9 mmHg (35.0-45.0) *H Arterial Blood Partial Pressure O2 71.7 mmHg (75.0-100.0) L Arterial Blood HCO3 38.8 mmol/L (22.0-26.0) H Arterial Blood Oxygen Saturation 94.0 % (95-100) L Arterial Blood Base Excess 12.2 (-2-2) *H Ian Test Positive Microbiology Date/Time Source Procedure Growth Status 05/19/18 23:00 Nasal Nares Influenza Types A,B Antigen (ENA) - Final Complete Akbar Reno MD May 20, 2018 20:08
[2018-05-21] VITALS: BP 129/51
--- NOTE | 2018-05-21 02:00 | Consultation ---
DATE OF CONSULTATION: 05/20/2018 CARDIOLOGY CONSULTATION CONSULTING PHYSICIAN: Akbar Reno M.D. REFERRING PHYSICIAN: Mendel Sierra M.D. REASON FOR REFERRAL: Congestive heart failure. HISTORY OF PRESENT ILLNESS: This is an elderly poor historian. The patient was brought in to the emergency room at [facility] from the [facility]. Retanner run sheet indicates she was complaining of desaturation or drop in saturation to 70s over minutes prior to the arrival, breathing rapid without any oxygen mask. The patient apparently denied any chest pain, headache, nausea, or vomiting at that time. The patient was brought to the emergency room at [facility] and was seen by the emergency room physician, and subsequently, was administered oxygen to which she did respond, was admitted with acute diastolic heart failure as well as COPD exacerbation and this consultation has been requested. The patient is known to me from prior evaluation. Also been known to other cardiologists as well over the past few hospitalizations. I last saw the patient back in September when she underwent a transesophageal echocardiogram for possibility of endocarditis that was excluded at that time as I recall. In either case, she had a history of coag-negative staph bacteremia, history of questionable influenza infection and urinary tract infection, atrial fibrillation/flutter history, history of pacemaker implantation, COPD, overactive bladder, hyperlipidemia, gout, heart failure, epilepsy, gastroesophageal reflux disease, and MRSA colonization, and most recently has had atrial flutter with rapid ventricular response for which Cardizem 90 mg three times a day and amiodarone 200 mg were administered as well as Eliquis. She also has a history of hypertension, psychosis, and schizophrenia as well on prior occasions. ALLERGIES: She is reportedly allergic to tazobactam as well as piperacillin. SOCIAL HISTORY: She is a resident of [facility]. She used to smoke 40 years ago. No alcoholic beverages. She used to use alcohol 30 years ago. REVIEW OF SYSTEMS: GASTROINTESTINAL: She denies nausea, vomiting, diarrhea, or constipation. GENITOURINARY: She denies any discomfort on urination. PULMONARY: She does admit to coughing and congestion. CONSTITUTIONAL: No fever, chills, or night sweats. NEUROLOGICAL: Negative. PHYSICAL EXAMINATION: GENERAL: An elderly female, on BiPAP therapy. NECK: Supple. No jugular venous distention. LUNGS: Crackles heard slightly. Breath sounds otherwise decreased bilaterally. CARDIAC: Irregularly irregular. Not tachycardic. No heaves or thrills noted. ABDOMEN: Soft and nontender. Positive bowel sounds. EXTREMITIES: There is no clubbing, cyanosis, or edema. NEUROLOGICAL: She is awake, alert, responsive, and moves all four extremities. LABORATORY AND DIAGNOSTIC DATA: Laboratory values obtained during this hospitalization include an echocardiogram that shows ejection fraction of 55%, technically difficult study with peak gradient of 12 and aortic valve of 1.7, peak mitral valve gradient of 14 and mean of 5, moderate mitral regurgitation, and moderately elevated left ventricular systolic and diastolic dysfunction. There is pulmonary hypertension in the 50s. Overall systolic function appears to be intact. There is severe left atrial enlargement being documented. The patient has had a chest x-ray performed during this hospitalization that shows right basilar opacity, likely combination of fluid and infiltrate increased from with large left-sided pleural effusion, maybe increased from well. Generalized interstitial prominence, combination of edema and chronic venous stasis changes were felt to be present. The patient's electrocardiogram shows atrial fibrillation/flutter with controlled ventricular response, probable V paced rhythm. ASSESSMENT AND PLAN: 1. Permanent atrial fibrillation/flutter. 2. History of congestive heart failure, diastolic in origin. 3. COPD. 4. Reported history of coronary artery disease. 5. History of permanent pacemaker implantation leadless device. 6. Atrial fibrillation previously. 7. History of COPD. 8. Pneumonia. 9. Pleural effusion. 10. History of psychosis and schizophrenia. This patient was seen in cardiac consultation. The patient's heart rate appears to be well controlled. She does have a pacemaker leadless device in place. She should be continued on her usual medications as long as her blood pressure does allow, Cardizem as well as amiodarone for the time being. She has been on amiodarone 200 mg daily and Cardizem 90 mg every eight hours and she is on anticoagulation with Eliquis, should be continued. Lasix should be administered, probably intravenously for now two to three times daily. Further recommendations as become necessary. As a matter of routine, cardiac enzymes will be checked. Of note, her latest creatinine has been 0.5 and her other cardiac enzymes so far during this hospitalization have been negative and even from prior evaluation as well. Akbar Reno M.D. DR: FE JOB#: [id number] CC:
[2018-05-21 04:00] VITALS: BP 133/63
[2018-05-21 05:28] LABS: BASOPHILS % (AUTO) 0.9 % (0.0-2.0); EOSINOPHILS % (AUTO) 1.4 % (0.0-3.0); HEMATOCRIT 31.4 % (37.0-47.0); HEMOGLOBIN 10.4 G/DL (12.0-16.0); LYMPHOCYTES % (AUTO) 9.3 % (20.0-45.0); MEAN CORPUSCULAR VOLUME 86 FL (80-99); MONOCYTES % (AUTO) 9.4 % (1.0-10.0); PLATELET COUNT 204 K/UL (150-450); RED BLOOD COUNT 3.65 M/UL (4.20-5.40); RED CELL DISTRIBUTION WIDTH 14.8 % (11.6-14.8); WHITE BLOOD COUNT 8.2 K/UL (4.8-10.8)
[2018-05-21] MEDS: dilTIAZem HCl 90mg tab ORAL SCH ×3 (05:55→21:34)
[2018-05-21 05:58] LABS: ALANINE AMINOTRANSFERASE 18 U/L (12-78); ALBUMIN 2.7 G/DL (3.4-5.0); ALBUMIN/GLOBULIN RATIO 0.7 (1.0-2.7); ALKALINE PHOSPHATASE 55 U/L (46-116); ANION GAP -2 mmol/L (5-15); ASPARTATE AMINO TRANSFERASE 23 U/L (15-37); BILIRUBIN,TOTAL 0.4 MG/DL (0.2-1.0); BLOOD UREA NITROGEN 14 mg/dL (7-18); CALCIUM 9.1 MG/DL (8.5-10.1); CARBON DIOXIDE 40 MMOL/L (21-32); CHLORIDE 95 MMOL/L (98-107); CREATININE 0.6 MG/DL (0.55-1.30); POTASSIUM 3.8 MMOL/L (3.5-5.1); SODIUM 134 MMOL/L (136-145)
[2018-05-21 08:00] VITALS: BP 126/49
[2018-05-21] MEDS: Eliquis 2.5mg tablet ORAL SCH ×2 (08:43→18:11)
[2018-05-21] MEDS: Amiodarone 200mg tab ORAL SCH (08:43)
--- NOTE | 2018-05-21 10:35 | Pulmonology Progress Note ---
Assessment/Plan Problems: (1) Respiratory failure, acute (2) Acute encephalopathy (3) Acute diastolic CHF (congestive heart failure) (4) COPD (chronic obstructive pulmonary disease) (5) Atrial fibrillation with RVR (6) Schizophrenia (7) Major depression Assessment/Plan on BIPAP continue laxis trial off bipap check electrolytes monitor heart rate. adjust cardiac meds. Subjective ROS Limited/Unobtainable: No Constitutional: Reports: no symptoms HEENT: Repors: no symptoms Respiratory: Reports: no symptoms Allergies: Coded Allergies: PIPERACILLIN (Unverified Allergy, Unknown, 03/10/18) TAZOBACTAM (Unverified Allergy, Unknown, 03/10/18) Objective Last 24 Hour Vital Signs Date Time Temp Pulse Resp B/P (MAP) Pulse Ox O2 Delivery O2 Flow Rate FiO2 05/21/18 09:11 74 23 99 Full Face 40 05/21/18 08:00 98.6 64 19 126/49 (74) 99 05/21/18 08:00 Bi-pap 40.0 Bi-pap 40.0 05/21/18 08:00 40 05/21/18 07:55 63 05/21/18 07:14 60 21 98 Full Face 40 05/21/18 05:55 67 133/63 05/21/18 05:01 67 23 98 Full Face 40 05/21/18 04:00 97.5 66 23 133/63 (86) 99 05/21/18 04:00 68 05/21/18 04:00 40 05/21/18 04:00 Bi-pap 40.0 Bi-pap 40.0 05/21/18 02:51 69 24 98 Full Face 40 05/21/18 00:58 63 23 97 Full Face 40 05/21/18 00:00 67 05/21/18 00:00 Bi-pap 40.0 Bi-pap 40.0 05/21/18 00:00 97.6 65 26 129/51 (77) 99 05/21/18 00:00 40 05/20/18 22:44 64 24 98 Full Face 40 05/20/18 21:11 73 24 97 Full Face 40 05/20/18 21:04 77 129/56 05/20/18 20:00 97.5 77 18 129/59 (82) 99 05/20/18 20:00 40 05/20/18 20:00 Bi-pap 40.0 Bi-pap 40.0 05/20/18 20:00 78 05/20/18 19:11 80 20 95 Full Face 40 05/20/18 16:51 73 20 98 Full Face 40 05/20/18 16:00 Bi-pap 40.0 Bi-pap 40.0 05/20/18 16:00 40 05/20/18 16:00 70 05/20/18 16:00 98.3 72 18 122/53 (76) 98 05/20/18 15:23 97.5 05/20/18 15:20 75 17 97 Full Face 40 05/20/18 13:48 79 26 99 Full Face 40 05/20/18 13:45 83 143/67 05/20/18 12:00 40 05/20/18 12:00 40 05/20/18 12:00 Bi-pap 40.0 Bi-pap 40.0 05/20/18 12:00 97.5 83 21 143/67 (92) 99 05/20/18 11:57 79 Intake and Output 05/20/18 05/21/18 19:00 07:00 Intake Total 280 ml 100 ml Output Total 500 ml 550 ml Balance -220 ml -450 ml Intake Oral 280 ml 100 ml Output Urine Total 500 ml 550 ml # Bowel Movements 2 Objective still on BIPAP General Appearance: WD/WN HEENT: normocephalic, atraumatic Respiratory/Chest: chest wall non-tender, lungs clear Breasts: no masses Cardiovascular: normal peripheral pulses, normal rate Abdomen: normal bowel sounds, no organomegaly Genitourinary: normal external genitalia Extremities: no cyanosis Microbiology Date/Time Source Procedure Growth Status 05/19/18 21:28 Blood Blood Culture - Preliminary Gram Positive Cocci Resulted 05/19/18 21:18 Blood Blood Culture - Preliminary Gram Positive Cocci Resulted 05/19/18 23:00 Nasal Nares Influenza Types A,B Antigen (ENA) - Final Complete Laboratory Tests 05/20/18 11:05: Troponin I 0.000 05/20/18 12:22: Arterial Blood pH 7.422, Arterial Blood Partial Pressure CO2 60.9*H, Arterial Blood Partial Pressure O2 71.7L, Arterial Blood HCO3 38.8H, Arterial Blood Oxygen Saturation 94.0L, Arterial Blood Base Excess 12.2*H, Ian Test Positive 05/21/18 03:20: Troponin I 0.000, White Blood Count 8.2, Red Blood Count 3.65L, Hemoglobin 10.4L , Hematocrit 31.4L, Mean Corpuscular Volume 86, Mean Corpuscular Hemoglobin 28.5 , Mean Corpuscular Hemoglobin Concent 33.2, Red Cell Distribution Width 14.8, Platelet Count 204, Mean Platelet Volume 6.9, Neutrophils (%) (Auto) 79.0H, Lymphocytes (%) (Auto) 9.3L, Monocytes (%) (Auto) 9.4, Eosinophils (%) (Auto) 1.4, Basophils (%) (Auto) 0.9, Sodium Level 134L, Potassium Level 3.8, Chloride Level 95L, Carbon Dioxide Level 40H, Anion Gap -2L, Blood Urea Nitrogen 14, Creatinine 0.6, Estimat Glomerular Filtration Rate , Glucose Level 92, Calcium Level 9.1, Phosphorus Level 3.0, Total Bilirubin 0.4, Aspartate Amino Transf ( AST/SGOT) 23, Alanine Aminotransferase (ALT/SGPT) 18, Alkaline Phosphatase 55, Pro-B-Type Natriuretic Peptide 3057H, Total Protein 6.4, Albumin 2.7L, Globulin 3.7, Albumin/Globulin Ratio 0.7L 05/21/18 09:52: Arterial Blood pH 7.419, Arterial Blood Partial Pressure CO2 69.4*H, Arterial Blood Partial Pressure O2 99.3, Arterial Blood HCO3 43.9*H, Arterial Blood Oxygen Saturation 96.9, Arterial Blood Base Excess 16.5*H, Ian Test Positive Current Medications Medications (Trade) Dose Ordered Sig/Ibrahima Route PRN Reason Start Time Stop Time Status Last Admin Dose Admin Acetaminophen (Tylenol) 650 mg Q4H PRN ORAL Fever 05/20/18 10:30 06/19/18 10:29 05/20/18 14:53 Albuterol/ Ipratropium (Albuterol/ Ipratropium) 3 ml Q4H PRN HHN Shortness of Breath 05/20/18 10:30 05/25/18 10:29 Amiodarone HCl (Cordarone) 200 mg DAILY ORAL 05/21/18 09:00 06/20/18 08:59 05/21/18 08:43 Apixaban (Eliquis) 5 mg BID ORAL 05/20/18 18:00 06/19/18 17:59 05/21/18 08:43 Dextrose (Dextrose 50%) 25 ml Q30M PRN IV Hypoglycemia 05/20/18 10:30 06/19/18 10:29 Dextrose (Dextrose 50%) 50 ml Q30M PRN IV Hypoglycemia 05/20/18 10:30 06/19/18 10:29 Diltiazem HCl (Cardizem) 90 mg Q8HR ORAL 05/20/18 14:00 06/19/18 13:59 05/21/18 05:55 Mirtazapine (Remeron) 15 mg BEDTIME ORAL 05/20/18 21:00 06/19/18 20:59 05/20/18 20:15 Ondansetron HCl (Zofran) 4 mg Q6H PRN IVP Nausea & Vomiting 05/20/18 10:30 06/19/18 10:29 Polyethylene Glycol (Miralax) 17 gm DAILYPRN PRN ORAL Constipation 05/20/18 10:30 06/19/18 10:29 Risperidone (RisperDAL) 2 mg BEDTIME ORAL 05/20/18 21:00 06/19/18 20:59 05/20/18 20:15 Temazepam (Restoril) 15 mg HSPRN PRN ORAL Insomnia 05/20/18 21:00 05/27/18 20:59 Mendel Sierra MD May 21, 2018 10:35
--- NOTE | 2018-05-21 11:50 | Diagnostic Imaging Report ---
Indication: Dyspnea Technique: XRAY Chest 1v Comparison: 05/19/2018 Findings: Stable cardiomegaly. Diffuse atherosclerotic calcification of the aorta again noted. There are chunky calcifications projecting over the left heart which may be mitral annular and location. An implantable loop recorder is again noted. There is generalized interstitial prominence. Left pleural effusion appears slightly decreased. There is persistent retrocardiac opacification. Haziness of the right lower lung likely related to layering pleural effusion. This is unchanged. No pneumothorax. There is osteopenia and degenerative change of the spine. Impression: * Question slight interval decrease in left-sided pleural effusion. Persistent left basilar atelectasis/consolidation. * Unchanged hazy right lower lung airspace opacities which may be related to combination of layering pleural fluid and/or infiltrate.
--- NOTE | 2018-05-21 11:59 | General Progress Note ---
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 (2) Major depression ICD Codes: F32.9 - Major depressive disorder, single episode, unspecified SNOMED: 10472651, [id number] (3) Schizophrenia ICD Codes: F20.9 - Schizophrenia, unspecified SNOMED: 64038060 Status: stable, progressing Assessment/Plan Risperdal 2mg qhs ativan prn raise the head Subjective Neurologic/Psychiatric: Reports: anxiety, depressed, emotional problems Allergies: Coded Allergies: PIPERACILLIN (Unverified Allergy, Unknown, 03/10/18) TAZOBACTAM (Unverified Allergy, Unknown, 03/10/18) Objective Last 24 Hour Vital Signs Date Time Temp Pulse Resp B/P (MAP) Pulse Ox O2 Delivery O2 Flow Rate FiO2 05/21/18 09:11 74 23 99 Full Face 40 05/21/18 08:00 98.6 64 19 126/49 (74) 99 05/21/18 08:00 Bi-pap 40.0 Bi-pap 40.0 05/21/18 08:00 40 05/21/18 07:55 63 05/21/18 07:14 60 21 98 Full Face 40 05/21/18 05:55 67 133/63 05/21/18 05:01 67 23 98 Full Face 40 05/21/18 04:00 97.5 66 23 133/63 (86) 99 05/21/18 04:00 68 05/21/18 04:00 40 05/21/18 04:00 Bi-pap 40.0 Bi-pap 40.0 05/21/18 02:51 69 24 98 Full Face 40 05/21/18 00:58 63 23 97 Full Face 40 05/21/18 00:00 67 05/21/18 00:00 Bi-pap 40.0 Bi-pap 40.0 05/21/18 00:00 97.6 65 26 129/51 (77) 99 05/21/18 00:00 40 05/20/18 22:44 64 24 98 Full Face 40 05/20/18 21:11 73 24 97 Full Face 40 05/20/18 21:04 77 129/56 05/20/18 20:00 97.5 77 18 129/59 (82) 99 05/20/18 20:00 40 05/20/18 20:00 Bi-pap 40.0 Bi-pap 40.0 05/20/18 20:00 78 05/20/18 19:11 80 20 95 Full Face 40 05/20/18 16:51 73 20 98 Full Face 40 05/20/18 16:00 Bi-pap 40.0 Bi-pap 40.0 05/20/18 16:00 40 18 16:00 70 05/20/18 16:00 98.3 72 18 122/53 (76) 98 05/20/18 15:23 97.5 05/20/18 15:20 75 17 97 Full Face 40 05/20/18 13:48 79 26 99 Full Face 40 05/20/18 13:45 83 143/67 05/20/18 12:00 40 05/20/18 12:00 40 05/20/18 12:00 Bi-pap 40.0 Bi-pap 40.0 05/20/18 12:00 97.5 83 21 143/67 (92) 99 Intake and Output 05/20/18 05/21/18 19:00 07:00 Intake Total 280 ml 100 ml Output Total 500 ml 550 ml Balance -220 ml -450 ml Intake Oral 280 ml 100 ml Output Urine Total 500 ml 550 ml # Bowel Movements 2 Laboratory Tests 05/20/18 12:22: Arterial Blood pH 7.422, Arterial Blood Partial Pressure CO2 60.9*H, Arterial Blood Partial Pressure O2 71.7L, Arterial Blood HCO3 38.8H, Arterial Blood Oxygen Saturation 94.0L, Arterial Blood Base Excess 12.2*H, Ian Test Positive 05/21/18 03:20: White Blood Count 8.2, Red Blood Count 3.65L, Hemoglobin 10.4L, Hematocrit 31.4L , Mean Corpuscular Volume 86, Mean Corpuscular Hemoglobin 28.5, Mean Corpuscular Hemoglobin Concent 33.2, Red Cell Distribution Width 14.8, Platelet Count 204, Mean Platelet Volume 6.9, Neutrophils (%) (Auto) 79.0H, Lymphocytes ( %) (Auto) 9.3L, Monocytes (%) (Auto) 9.4, Eosinophils (%) (Auto) 1.4, Basophils (%) (Auto) 0.9, Sodium Level 134L, Potassium Level 3.8, Chloride Level 95L, Carbon Dioxide Level 40H, Anion Gap -2L, Blood Urea Nitrogen 14, Creatinine 0.6 , Estimat Glomerular Filtration Rate , Glucose Level 92, Calcium Level 9.1, Phosphorus Level 3.0, Total Bilirubin 0.4, Aspartate Amino Transf (AST/SGOT) 23 , Alanine Aminotransferase (ALT/SGPT) 18, Alkaline Phosphatase 55, Troponin I 0.000, Pro-B-Type Natriuretic Peptide 3057H, Total Protein 6.4, Albumin 2.7L, Globulin 3.7, Albumin/Globulin Ratio 0.7L 05/21/18 09:52: Arterial Blood pH 7.419, Arterial Blood Partial Pressure CO2 69.4*H, Arterial Blood Partial Pressure O2 99.3, Arterial Blood HCO3 43.9*H, Arterial Blood Oxygen Saturation 96.9, Arterial Blood Base Excess 16.5*H, Ian Test Positive Height (Feet): 5 Height (Inches): 2.00 Weight (Pounds): 184 General Appearance: alert, agitated Neurologic: oriented x 3, responsive, depressed affect Luiz Morrison MD May 21, 2018 11:59
[2018-05-21 12:00] VITALS: BP 147/67
--- NOTE | 2018-05-21 13:13 | Consultation ---
History of Present Illness General Date patient seen: May 21, 2018 Chief Complaint: Dyspnea/Respdistress Present Illness HPI 77 y/o F with hx of COPD, dCHF, CAD s/p stents, GERD, CVA/TIA, b/l hip replacement, HTN, atrial flutter s/p PPM, L DVT, seizure disorder, depression/ schizophrenia, history of alcohol abuse, recurrent admissions, UTI, CONS bacteremia, SNF resident presents to ED on 05/19 with respiratory distress and desaturation to 70s, altered mental status. Patient was placed on bipap Denied CP, CAREY, n/v upon admission Of note, patient last admitted here was in Early April with probable legionella PNA (neg urine ag, +IgM) and proteus UTI. Allergies: Coded Allergies: PIPERACILLIN (Unverified Allergy, Unknown, 05/21/18) tolerates cephalosporins TAZOBACTAM (Unverified Allergy, Unknown, 03/10/18) Medication History Scheduled Amiodarone Hcl* (Pacerone*), 200 MG ORAL DAILY Apixaban (Eliquis), 5 MG ORAL BID Diltiazem HCl (Diltiazem HCl), 90 MG ORAL Q8HR Furosemide* (Lasix*), 40 MG ORAL DAILY, (Reported) Furosemide* (Lasix*), 40 MG ORAL TWICE A DAY Guaifenesin* (Guaifenesin), 5 ML ORAL Q6H, (Reported) Lisinopril (Lisinopril*), 5 MG ORAL DAILY, (Reported) Mirtazapine* (Mirtazapine*), 15 MG ORAL BEDTIME Pantoprazole* (Protonix*), 40 MG ORAL EVERY 12 HOURS Potassium Chloride (Potassium Chloride), 10 MEQ ORAL DAILY, (Reported) Risperidone* (Risperdal*), 2 MG ORAL BEDTIME Risperidone* (Risperdal*), 2 MG ORAL BEDTIME Scheduled PRN Acetaminophen With Codeine (T#3) (Tylenol #3 Tab*), 1 TAB ORAL Q4H PRN for For Pain, (Reported) Acetaminophen* (Acetaminophen 325MG Tablet*), 325 MG ORAL Q4H PRN for Fever/ Headache/Mild Pain, (Reported) Zolpidem Tartrate* (Ambien*), 5 MG ORAL BEDTIME PRN for Insomnia, (Reported) Miscellaneous Medications Benzocaine/Menthol (Chloraseptic Max Lozenge), 1 EACH MM, (Reported) Ipratropium/Albuterol Sulfate (DuoNeb 0.5-3(2.5)mg/3ml), 3 ML HHN, (Reported) Phenol/Glycerin (Chloraseptic Max Horse Shoe), 30 ML MM, (Reported) Patient History Healthcare decision maker Resuscitation status Full Code Advanced Directive on File No Patient History Narrative Pmhx: as above Shx: She is a resident of convalescent facility. She used to smoke 40 years ago. No alcoholic beverages. She used to use alcohol 30 years ago. Fhx: non contributory Physical Exam Physical Exam Narrative GENERAL: An elderly female, on BiPAP therapy. NECK: Supple. No jugular venous distention. LUNGS: Crackles heard slightly. Breath sounds otherwise decreased bilaterally. CARDIAC: Irregularly irregular. Not tachycardic. No heaves or thrills noted. ABDOMEN: Soft and nontender. Positive bowel sounds. EXTREMITIES: There is no clubbing, cyanosis, or edema. NEUROLOGICAL: She is awake, alert, responsive, and moves all four extremities. Last 24 Hour Vital Signs Date Time Temp Pulse Resp B/P (MAP) Pulse Ox O2 Delivery O2 Flow Rate FiO2 05/21/18 12:00 Bi-pap 40.0 Bi-pap 40.0 05/21/18 12:00 98.9 64 19 147/67 (93) 98 05/21/18 09:11 74 23 99 Full Face 40 05/21/18 08:00 98.6 64 19 126/49 (74) 99 05/21/18 08:00 Bi-pap 40.0 Bi-pap 40.0 05/21/18 08:00 40 05/21/18 07:55 63 05/21/18 07:14 60 21 98 Full Face 40 05/21/18 05:55 67 133/63 05/21/18 05:01 67 23 98 Full Face 40 05/21/18 04:00 97.5 66 23 133/63 (86) 99 05/21/18 04:00 68 05/21/18 04:00 40 05/21/18 04:00 Bi-pap 40.0 Bi-pap 40.0 05/21/18 02:51 69 24 98 Full Face 40 05/21/18 00:58 63 23 97 Full Face 40 05/21/18 00:00 67 05/21/18 00:00 Bi-pap 40.0 Bi-pap 40.0 05/21/18 00:00 97.6 65 26 129/51 (77) 99 05/21/18 00:00 40 05/20/18 22:44 64 24 98 Full Face 40 05/20/18 21:11 73 24 97 Full Face 40 05/20/18 21:04 77 129/56 05/20/18 20:00 97.5 77 18 129/59 (82) 99 05/20/18 20:00 40 05/20/18 20:00 Bi-pap 40.0 Bi-pap 40.0 05/20/18 20:00 78 05/20/18 19:11 80 20 95 Full Face 40 05/20/18 16:51 73 20 98 Full Face 40 05/20/18 16:00 Bi-pap 40.0 Bi-pap 40.0 05/20/18 16:00 40 05/20/18 16:00 70 05/20/18 16:00 98.3 72 18 122/53 (76) 98 05/20/18 15:23 97.5 05/20/18 15:20 75 17 97 Full Face 40 05/20/18 13:48 79 26 99 Full Face 40 05/20/18 13:45 83 143/67 Intake and Output 05/20/18 05/21/18 19:00 07:00 Intake Total 280 ml 100 ml Output Total 500 ml 550 ml Balance -220 ml -450 ml Intake Oral 280 ml 100 ml Output Urine Total 500 ml 550 ml # Bowel Movements 2 Laboratory Tests Test 05/21/18 03:20 05/21/18 09:52 White Blood Count 8.2 K/UL (4.8-10.8) Red Blood Count 3.65 M/UL (4.20-5.40) L Hemoglobin 10.4 G/DL (12.0-16.0) L Hematocrit 31.4 % (37.0-47.0) L Mean Corpuscular Volume 86 FL (80-99) Mean Corpuscular Hemoglobin 28.5 PG (27.0-31.0) Mean Corpuscular Hemoglobin Concent 33.2 G/DL (32.0-36.0) Red Cell Distribution Width 14.8 % (11.6-14.8) Platelet Count 204 K/UL (150-450) Mean Platelet Volume 6.9 FL (6.5-10.1) Neutrophils (%) (Auto) 79.0 % (45.0-75.0) H Lymphocytes (%) (Auto) 9.3 % (20.0-45.0) L Monocytes (%) (Auto) 9.4 % (1.0-10.0) Eosinophils (%) (Auto) 1.4 % (0.0-3.0) Basophils (%) (Auto) 0.9 % (0.0-2.0) Sodium Level 134 MMOL/L (136-145) L Potassium Level 3.8 MMOL/L (3.5-5.1) Chloride Level 95 MMOL/L (98-107) L Carbon Dioxide Level 40 MMOL/L (21-32) H Anion Gap -2 mmol/L (5-15) L Blood Urea Nitrogen 14 mg/dL (7-18) Creatinine 0.6 MG/DL (0.55-1.30) Estimat Glomerular Filtration Rate mL/min (>60) Glucose Level 92 MG/DL (74-106) Calcium Level 9.1 MG/DL (8.5-10.1) Phosphorus Level 3.0 MG/DL (2.5-4.9) Total Bilirubin 0.4 MG/DL (0.2-1.0) Aspartate Amino Transf (AST/SGOT) 23 U/L (15-37) Alanine Aminotransferase (ALT/SGPT) 18 U/L (12-78) Alkaline Phosphatase 55 U/L (46-116) Troponin I 0.000 ng/mL (0.000-0.056) Pro-B-Type Natriuretic Peptide 3057 pg/mL (0-125) H Total Protein 6.4 G/DL (6.4-8.2) Albumin 2.7 G/DL (3.4-5.0) L Globulin 3.7 g/dL Albumin/Globulin Ratio 0.7 (1.0-2.7) L Arterial Blood pH 7.419 (7.350-7.450) Arterial Blood Partial Pressure CO2 69.4 mmHg (35.0-45.0) *H Arterial Blood Partial Pressure O2 99.3 mmHg (75.0-100.0) Arterial Blood HCO3 43.9 mmol/L (22.0-26.0) *H Arterial Blood Oxygen Saturation 96.9 % (95-100) Arterial Blood Base Excess 16.5 (-2-2) *H Ian Test Positive Height (Feet): 5 Height (Inches): 2.00 Weight (Pounds): 184 Medications Current Medications Medications (Trade) Dose Ordered Sig/Ibrahima Route PRN Reason Start Time Stop Time Status Last Admin Dose Admin Acetaminophen (Tylenol) 650 mg Q4H PRN ORAL Fever 05/20/18 10:30 06/19/18 10:29 05/20/18 14:53 Albuterol/ Ipratropium (Albuterol/ Ipratropium) 3 ml Q4H PRN HHN Shortness of Breath 05/20/18 10:30 05/25/18 10:29 Amiodarone HCl (Cordarone) 200 mg DAILY ORAL 05/21/18 09:00 06/20/18 08:59 05/21/18 08:43 Apixaban (Eliquis) 5 mg BID ORAL 05/20/18 18:00 06/19/18 17:59 05/21/18 08:43 Dextrose (Dextrose 50%) 25 ml Q30M PRN IV Hypoglycemia 05/20/18 10:30 06/19/18 10:29 Dextrose (Dextrose 50%) 50 ml Q30M PRN IV Hypoglycemia 05/20/18 10:30 06/19/18 10:29 Diltiazem HCl (Cardizem) 90 mg Q8HR ORAL 05/20/18 14:00 06/19/18 13:59 05/21/18 05:55 Mirtazapine (Remeron) 15 mg BEDTIME ORAL 05/20/18 21:00 06/19/18 20:59 05/20/18 20:15 Ondansetron HCl (Zofran) 4 mg Q6H PRN IVP Nausea & Vomiting 05/20/18 10:30 06/19/18 10:29 Polyethylene Glycol (Miralax) 17 gm DAILYPRN PRN ORAL Constipation 05/20/18 10:30 06/19/18 10:29 Risperidone (RisperDAL) 2 mg BEDTIME ORAL 05/20/18 21:00 06/19/18 20:59 05/20/18 20:15 Temazepam (Restoril) 15 mg HSPRN PRN ORAL Insomnia 05/20/18 21:00 05/27/18 20:59 Assessment/Plan Assessment/Plan Abx: Levaquin x 1 05/19 Assessment: Acute respiratory failure, on BIpap- due to combination of PNA and CHF -CXR: Right basilar opacity, likely combination of pleural fluid and infiltrate, increased from 04/16/2018. Large left pleural effusion, may be slightly increased from 04/16/2018. Generalized interstitial prominence, may be combination of interstitial edema and chronic interstitial changes. -influenza sc neg Gram positive bacteremia, high grade- r/o S.aures -05/19 Bcx 4/4 +GPC clusters 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, Legionella 04/2018, s/p Rx SP VDRF, 04/10 Sp extubated Legionella Ur Ag: Neg, Legionella IgM + / IgG - Scx: No sig growth Flu screen negative Atrial flutter dCHF COPD CAD s/p stents Hypertension Seizure disorder Schizophrenia Depression History of intraventricular pacemaker implantation GERD CVA/TIA b/l hip replacement hx of L DVT history of alcohol abuse hx of recurrent admissions hx of high grade CONS bacteremia (JIMY neg 09/2017) SNF resident Plan: -Start empiric IV Vancomycin and Cefepime pending cultures -Bcx x2, sp cx, legionella ag urine -f/u cx -Monitor CBC/CMP, temperatures -aspiration precautions Thank you for this consultation. Will continue to follow along with you. Discussed with Danica Lacy M.D. May 21, 2018 13:13
[2018-05-21] MEDS: Cefepime HCl 1 GM in D5W 55 ML IVPB SCH (15:00)
[2018-05-21] MEDS: Vancomycin 500mg/D5W 110ml IVPB SCH ×2 (15:03)
[2018-05-21 16:00] VITALS: BP 145/68
--- NOTE | 2018-05-21 19:09 | Cardiology Progress Note ---
Assessment/Plan Assessment/Plan 1. Permanent atrial fibrillation/flutter. 2. History of congestive heart failure, diastolic in origin. 3. COPD. 4. Reported history of coronary artery disease. 5. History of permanent pacemaker implantation leadless device. 6. Atrial fibrillation previously. 7. History of COPD. 8. Pneumonia. 9. Pleural effusion. 10. History of psychosis and schizophrenia. trop neg tele noted cxr noted abg noted going back on bipap ekg noted treat for underlying pneumonia iv abx hhn amiod and eliquis Subjective Cardiovascular: Denies: chest pain, lightheadedness, palpitations Respiratory: Reports: cough, shortness of breath, sputum Gastrointestinal/Abdominal: Denies: abdominal pain Genitourinary: Denies: burning Objective Last 24 Hour Vital Signs Date Time Temp Pulse Resp B/P (MAP) Pulse Ox O2 Delivery O2 Flow Rate FiO2 05/21/18 17:03 68 24 98 05/21/18 16:00 98.6 78 20 145/68 (93) 98 05/21/18 16:00 Bi-pap 40.0 Bi-pap 40.0 05/21/18 15:47 76 05/21/18 15:30 67 98 05/21/18 14:00 67 134/77 05/21/18 12:00 Bi-pap 40.0 Bi-pap 40.0 05/21/18 12:00 40 05/21/18 12:00 98.9 64 19 147/67 (93) 98 05/21/18 11:41 72 05/21/18 11:00 60 99 05/21/18 09:11 74 23 99 Full Face 40 05/21/18 08:00 98.6 64 19 126/49 (74) 99 05/21/18 08:00 Bi-pap 40.0 Bi-pap 40.0 05/21/18 08:00 40 05/21/18 07:55 63 05/21/18 07:14 60 21 98 Full Face 40 05/21/18 05:55 67 133/63 05/21/18 05:01 67 23 98 Full Face 40 05/21/18 04:00 97.5 66 23 133/63 (86) 99 05/21/18 04:00 68 05/21/18 04:00 40 05/21/18 04:00 Bi-pap 40.0 Bi-pap 40.0 05/21/18 02:51 69 24 98 Full Face 40 05/21/18 00:58 63 23 97 Full Face 40 05/21/18 00:00 67 05/21/18 00:00 Bi-pap 40.0 Bi-pap 40.0 05/21/18 00:00 97.6 65 26 129/51 (77) 99 05/21/18 00:00 40 05/20/18 22:44 64 24 98 Full Face 40 05/20/18 21:11 73 24 97 Full Face 40 05/20/18 21:04 77 129/56 05/20/18 20:00 97.5 77 18 129/59 (82) 99 05/20/18 20:00 40 05/20/18 20:00 Bi-pap 40.0 Bi-pap 40.0 05/20/18 20:00 78 05/20/18 19:11 80 20 95 Full Face 40 General Appearance: no apparent distress, alert Cardiovascular: irregularly irregular Respiratory/Chest: decreased breath sounds Abdomen: normal bowel sounds, non tender, soft Extremities: no swelling Intake and Output 05/20/18 05/21/18 19:00 07:00 Intake Total 280 ml 100 ml Output Total 500 ml 550 ml Balance -220 ml -450 ml Intake Oral 280 ml 100 ml Output Urine Total 500 ml 550 ml # Bowel Movements 2 Laboratory Tests Test 05/21/18 03:20 05/21/18 09:52 White Blood Count 8.2 K/UL (4.8-10.8) Red Blood Count 3.65 M/UL (4.20-5.40) L Hemoglobin 10.4 G/DL (12.0-16.0) L Hematocrit 31.4 % (37.0-47.0) L Mean Corpuscular Volume 86 FL (80-99) Mean Corpuscular Hemoglobin 28.5 PG (27.0-31.0) Mean Corpuscular Hemoglobin Concent 33.2 G/DL (32.0-36.0) Red Cell Distribution Width 14.8 % (11.6-14.8) Platelet Count 204 K/UL (150-450) Mean Platelet Volume 6.9 FL (6.5-10.1) Neutrophils (%) (Auto) 79.0 % (45.0-75.0) H Lymphocytes (%) (Auto) 9.3 % (20.0-45.0) L Monocytes (%) (Auto) 9.4 % (1.0-10.0) Eosinophils (%) (Auto) 1.4 % (0.0-3.0) Basophils (%) (Auto) 0.9 % (0.0-2.0) Sodium Level 134 MMOL/L (136-145) L Potassium Level 3.8 MMOL/L (3.5-5.1) Chloride Level 95 MMOL/L (98-107) L Carbon Dioxide Level 40 MMOL/L (21-32) H Anion Gap -2 mmol/L (5-15) L Blood Urea Nitrogen 14 mg/dL (7-18) Creatinine 0.6 MG/DL (0.55-1.30) Estimat Glomerular Filtration Rate mL/min (>60) Glucose Level 92 MG/DL (74-106) Calcium Level 9.1 MG/DL (8.5-10.1) Phosphorus Level 3.0 MG/DL (2.5-4.9) Total Bilirubin 0.4 MG/DL (0.2-1.0) Aspartate Amino Transf (AST/SGOT) 23 U/L (15-37) Alanine Aminotransferase (ALT/SGPT) 18 U/L (12-78) Alkaline Phosphatase 55 U/L (46-116) Troponin I 0.000 ng/mL (0.000-0.056) Pro-B-Type Natriuretic Peptide 3057 pg/mL (0-125) H Total Protein 6.4 G/DL (6.4-8.2) Albumin 2.7 G/DL (3.4-5.0) L Globulin 3.7 g/dL Albumin/Globulin Ratio 0.7 (1.0-2.7) L Arterial Blood pH 7.419 (7.350-7.450) Arterial Blood Partial Pressure CO2 69.4 mmHg (35.0-45.0) *H Arterial Blood Partial Pressure O2 99.3 mmHg (75.0-100.0) Arterial Blood HCO3 43.9 mmol/L (22.0-26.0) *H Arterial Blood Oxygen Saturation 96.9 % (95-100) Arterial Blood Base Excess 16.5 (-2-2) *H Ian Test Positive Microbiology Date/Time Source Procedure Growth Status 05/19/18 21:28 Blood Blood Culture - Preliminary Gram Positive Cocci Resulted 05/19/18 21:18 Blood Blood Culture - Preliminary Gram Positive Cocci Resulted 05/19/18 23:00 Nasal Nares Influenza Types A,B Antigen (ENA) - Final Complete Akbar Reno MD May 21, 2018 19:09
[2018-05-21 20:00] VITALS: BP 123/61
[2018-05-22] VITALS: BP 133/56
[2018-05-22] MEDS: Vancomycin 500mg/D5W 110ml IVPB SCH ×4 (03:05→15:39)
[2018-05-22 04:00] VITALS: BP 123/57
[2018-05-22 05:47] LABS: BASOPHILS % (AUTO) 1.1 % (0.0-2.0); EOSINOPHILS % (AUTO) 2.5 % (0.0-3.0); HEMATOCRIT 31.2 % (37.0-47.0); HEMOGLOBIN 10.1 G/DL (12.0-16.0); LYMPHOCYTES % (AUTO) 15.1 % (20.0-45.0); MEAN CORPUSCULAR VOLUME 88 FL (80-99); MONOCYTES % (AUTO) 7.2 % (1.0-10.0); PLATELET COUNT 168 K/UL (150-450); RED BLOOD COUNT 3.54 M/UL (4.20-5.40); RED CELL DISTRIBUTION WIDTH 15.2 % (11.6-14.8); WHITE BLOOD COUNT 7.4 K/UL (4.8-10.8)
[2018-05-22] MEDS: dilTIAZem HCl 90mg tab ORAL SCH ×3 (05:47→22:36)
[2018-05-22 06:38] LABS: ALANINE AMINOTRANSFERASE 21 U/L (12-78); ALBUMIN 2.5 G/DL (3.4-5.0); ALBUMIN/GLOBULIN RATIO 0.8 (1.0-2.7); ALKALINE PHOSPHATASE 52 U/L (46-116); ANION GAP 2 mmol/L (5-15); ASPARTATE AMINO TRANSFERASE 22 U/L (15-37); BILIRUBIN,TOTAL 0.3 MG/DL (0.2-1.0); BLOOD UREA NITROGEN 16 mg/dL (7-18); CALCIUM 8.8 MG/DL (8.5-10.1); CARBON DIOXIDE 40 MMOL/L (21-32); CHLORIDE 96 MMOL/L (98-107); CREATININE 0.5 MG/DL (0.55-1.30); POTASSIUM 3.6 MMOL/L (3.5-5.1); SODIUM 138 MMOL/L (136-145)
[2018-05-22 08:00] VITALS: BP 113/48
[2018-05-22] MEDS: Eliquis 2.5mg tablet ORAL SCH ×2 (09:14→18:27)
[2018-05-22] MEDS: Amiodarone 200mg tab ORAL SCH (09:15)
[2018-05-22 12:00] VITALS: BP 139/57
--- NOTE | 2018-05-22 12:52 | Diagnostic Imaging Report ---
Indication: Cough Technique: One view of the chest Comparison: 05/21/2018 Findings: Hazy right basilar opacity, left lateral basilar opacity are all unchanged. Borderline cardiomegaly persists. Monitoring device again overlies the left hemidiaphragm Impression: Unchanged, over one day, findings as above.
--- NOTE | 2018-05-22 13:49 | Pulmonology Progress Note ---
Assessment/Plan Assessment/Plan Pulmonary Progress Note Assessment/Plan Problems: (1) Respiratory failure, acute (2) Acute encephalopathy (3) Acute diastolic CHF (congestive heart failure) (4) COPD (chronic obstructive pulmonary disease) (5) Atrial fibrillation with RVR (6) Schizophrenia (7) Major depression Assessment/Plan on BIPAP continue laxis trial off bipap check electrolytes monitor heart rate. adjust cardiac meds. Subjective ROS Limited/Unobtainable: No Constitutional: Reports: no symptoms HEENT: Repors: no symptoms Respiratory: Reports: no symptoms Allergies: Coded Allergies: PIPERACILLIN (Unverified Allergy, Unknown, 03/10/18) TAZOBACTAM (Unverified Allergy, Unknown, 03/10/18) Objective Vital Signs Noted Objective still on BIPAP General Appearance: WD/WN HEENT: normocephalic, atraumatic Respiratory/Chest: chest wall non-tender, lungs clear Breasts: no masses Cardiovascular: normal peripheral pulses, normal rate Abdomen: normal bowel sounds, no organomegaly Genitourinary: normal external genitalia Extremities: no cyanosis Microbiology Date/Time Source Procedure Growth Status 05/19/18 21:28 Blood Blood Culture - Preliminary Gram Positive Cocci Resulted 05/19/18 21:18 Blood Blood Culture - Preliminary Gram Positive Cocci Resulted 05/19/18 23:00 Nasal Nares Influenza Types A,B Antigen (ENA) - Final Complete Laboratory Tests 05/20/18 11:05: Troponin I 0.000 05/20/18 12:22: Arterial Blood pH 7.422, Arterial Blood Partial Pressure CO2 60.9*H, Arterial Blood Partial Pressure O2 71.7L, Arterial Blood HCO3 38.8H, Arterial Blood Oxygen Saturation 94.0L, Arterial Blood Base Excess 12.2*H, Ian Test Positive 05/21/18 03:20: Troponin I 0.000, White Blood Count 8.2, Red Blood Count 3.65L, Hemoglobin 10.4L , Hematocrit 31.4L, Mean Corpuscular Volume 86, Mean Corpuscular Hemoglobin 28.5 , Mean Corpuscular Hemoglobin Concent 33.2, Red Cell Distribution Width 14.8, Platelet Count 204, Mean Platelet Volume 6.9, Neutrophils (%) (Auto) 79.0H, Lymphocytes (%) (Auto) 9.3L, Monocytes (%) (Auto) 9.4, Eosinophils (%) (Auto) 1.4, Basophils (%) (Auto) 0.9, Sodium Level 134L, Potassium Level 3.8, Chloride Level 95L, Carbon Dioxide Level 40H, Anion Gap -2L, Blood Urea Nitrogen 14, Creatinine 0.6, Estimat Glomerular Filtration Rate , Glucose Level 92, Calcium Level 9.1, Phosphorus Level 3.0, Total Bilirubin 0.4, Aspartate Amino Transf ( AST/SGOT) 23, Alanine Aminotransferase (ALT/SGPT) 18, Alkaline Phosphatase 55, Pro-B-Type Natriuretic Peptide 3057H, Total Protein 6.4, Albumin 2.7L, Globulin 3.7, Albumin/Globulin Ratio 0.7L 05/21/18 09:52: Arterial Blood pH 7.419, Arterial Blood Partial Pressure CO2 69.4*H, Arterial Blood Partial Pressure O2 99.3, Arterial Blood HCO3 43.9*H, Arterial Blood Oxygen Saturation 96.9, Arterial Blood Base Excess 16.5*H, Ian Test Positive Current Medications Medications (Trade) Dose Ordered Sig/Ibrahima Route PRN Reason Start Time Stop Time Status Last Admin Dose Admin Acetaminophen (Tylenol) 650 mg Q4H PRN ORAL Fever 05/20/18 10:30 06/19/18 10:29 05/20/18 14:53 Albuterol/ Ipratropium (Albuterol/ Ipratropium) 3 ml Q4H PRN HHN Shortness of Breath 05/20/18 10:30 05/25/18 10:29 Amiodarone HCl (Cordarone) 200 mg DAILY ORAL 05/21/18 09:00 06/20/18 08:59 05/21/18 08:43 Apixaban (Eliquis) 5 mg BID ORAL 05/20/18 18:00 06/19/18 17:59 05/21/18 08:43 Dextrose (Dextrose 50%) 25 ml Q30M PRN IV Hypoglycemia 05/20/18 10:30 06/19/18 10:29 Dextrose (Dextrose 50%) 50 ml Q30M PRN IV Hypoglycemia 05/20/18 10:30 06/19/18 10:29 Diltiazem HCl (Cardizem) 90 mg Q8HR ORAL 05/20/18 14:00 06/19/18 13:59 05/21/18 05:55 Mirtazapine (Remeron) 15 mg BEDTIME ORAL 05/20/18 21:00 06/19/18 20:59 05/20/18 20:15 Ondansetron HCl (Zofran) 4 mg Q6H PRN IVP Nausea & Vomiting 05/20/18 10:30 06/19/18 10:29 Polyethylene Glycol (Miralax) 17 gm DAILYPRN PRN ORAL Constipation 05/20/18 10:30 06/19/18 10:29 Risperidone (RisperDAL) 2 mg BEDTIME ORAL 05/20/18 21:00 06/19/18 20:59 05/20/18 20:15 Temazepam (Restoril) 15 mg HSPRN PRN ORAL Insomnia 05/20/18 21:00 05/27/18 20:59 Subjective ROS Limited/Unobtainable: No Allergies: Coded Allergies: PIPERACILLIN (Unverified Allergy, Unknown, 05/21/18) tolerates cephalosporins TAZOBACTAM (Unverified Allergy, Unknown, 03/10/18) Objective Last 24 Hour Vital Signs Date Time Temp Pulse Resp B/P (MAP) Pulse Ox O2 Delivery O2 Flow Rate FiO2 05/22/18 12:49 76 20 95 2.0 28 05/22/18 12:01 60 05/22/18 12:00 97.7 61 16 139/57 (84) 100 05/22/18 12:00 Bi-pap 40.0 Room Air 05/22/18 10:50 67 21 98 Full Face 40 05/22/18 09:22 70 22 98 Full Face 40 05/22/18 08:09 65 05/22/18 08:00 Bi-pap 40.0 Room Air 05/22/18 08:00 96.8 60 16 113/48 (69) 97 05/22/18 06:49 60 16 98 Full Face 40 05/22/18 06:36 Bi-pap Bi-pap 05/22/18 05:47 64 145/62 05/22/18 05:14 65 19 99 Full Face 40 05/22/18 04:00 97.4 60 16 123/57 (79) 100 05/22/18 04:00 60 05/22/18 04:00 Bi-pap 40.0 Bi-pap 40.0 05/22/18 02:49 60 17 99 Full Face 40 05/22/18 01:17 63 20 97 Facial 40 05/22/18 00:00 Bi-pap 40.0 Bi-pap 40.0 05/22/18 00:00 97.6 63 22 133/56 (81) 96 05/22/18 00:00 64 05/21/18 22:44 70 20 28 2.0 28 05/21/18 21:34 67 123/61 05/21/18 21:17 68 16 97 Full Face 40 05/21/18 20:00 97.5 67 16 123/61 (81) 97 05/21/18 20:00 Bi-pap 40.0 Bi-pap 40.0 05/21/18 20:00 64 05/21/18 19:13 62 26 98 Full Face 40 05/21/18 17:03 68 24 98 05/21/18 16:00 98.6 78 20 145/68 (93) 98 05/21/18 16:00 Bi-pap 40.0 Bi-pap 40.0 05/21/18 15:47 76 05/21/18 15:30 67 98 05/21/18 14:00 67 134/77 Intake and Output 05/21/18 05/22/18 19:00 07:00 Intake Total 475 ml 40 ml Output Total 350 ml Balance 475 ml -310 ml Intake Oral 255 ml 40 ml IV Total 220 ml Output Urine Total 350 ml # Bowel Movements 2 Microbiology Date/Time Source Procedure Growth Status 05/19/18 21:28 Blood Blood Culture - Preliminary Gram Positive Cocci Resulted 05/19/18 21:18 Blood Blood Culture - Preliminary Gram Positive Cocci Resulted 05/19/18 23:00 Nasal Nares Influenza Types A,B Antigen (ENA) - Final Complete Laboratory Tests 05/22/18 03:05: White Blood Count 7.4, Red Blood Count 3.54L, Hemoglobin 10.1L, Hematocrit 31.2L , Mean Corpuscular Volume 88, Mean Corpuscular Hemoglobin 28.5, Mean Corpuscular Hemoglobin Concent 32.3, Red Cell Distribution Width 15.2H, Platelet Count 168, Mean Platelet Volume 7.0, Neutrophils (%) (Auto) 74.0, Lymphocytes (%) (Auto) 15.1L, Monocytes (%) (Auto) 7.2, Eosinophils (%) (Auto) 2.5, Basophils (%) (Auto) 1.1, Sodium Level 138, Potassium Level 3.6, Chloride Level 96L, Carbon Dioxide Level 40H, Anion Gap 2L, Blood Urea Nitrogen 16, Creatinine 0.5L, Estimat Glomerular Filtration Rate , Glucose Level 76, Calcium Level 8.8, Total Bilirubin 0.3, Aspartate Amino Transf (AST/SGOT) 22, Alanine Aminotransferase (ALT/SGPT) 21, Alkaline Phosphatase 52, Troponin I 0.000, Pro-B -Type Natriuretic Peptide 1581H, Total Protein 5.7L, Albumin 2.5L, Globulin 3.2 , Albumin/Globulin Ratio 0.8L 05/22/18 08:58: Arterial Blood pH 7.383, Arterial Blood Partial Pressure CO2 58.9*H, Arterial Blood Partial Pressure O2 89.5, Arterial Blood HCO3 34.3H, Arterial Blood Oxygen Saturation 96.2, Arterial Blood Base Excess 7.7H, Ian Test Positive Current Medications Medications (Trade) Dose Ordered Sig/Ibrahima Route PRN Reason Start Time Stop Time Status Last Admin Dose Admin Acetaminophen (Tylenol) 650 mg Q4H PRN ORAL Fever 05/20/18 10:30 06/19/18 10:29 05/21/18 15:04 Albuterol/ Ipratropium (Albuterol/ Ipratropium) 3 ml Q4H PRN HHN Shortness of Breath 05/20/18 10:30 05/25/18 10:29 Amiodarone HCl (Cordarone) 200 mg DAILY ORAL 05/21/18 09:00 06/20/18 08:59 05/22/18 09:15 Apixaban (Eliquis) 5 mg BID ORAL 05/20/18 18:00 06/19/18 17:59 05/22/18 09:14 Cefepime HCl 1 gm/ Dextrose 55 ml @ 110 mls/hr Q24H IVPB 05/21/18 15:00 05/28/18 14:59 05/21/18 15:00 Dextrose (Dextrose 50%) 25 ml Q30M PRN IV Hypoglycemia 05/20/18 10:30 06/19/18 10:29 Dextrose (Dextrose 50%) 50 ml Q30M PRN IV Hypoglycemia 05/20/18 10:30 06/19/18 10:29 Diltiazem HCl (Cardizem) 90 mg Q8HR ORAL 05/20/18 14:00 06/19/18 13:59 05/22/18 05:47 Mirtazapine (Remeron) 15 mg BEDTIME ORAL 05/20/18 21:00 06/19/18 20:59 05/21/18 21:34 Ondansetron HCl (Zofran) 4 mg Q6H PRN IVP Nausea & Vomiting 05/20/18 10:30 06/19/18 10:29 Polyethylene Glycol (Miralax) 17 gm DAILYPRN PRN ORAL Constipation 05/20/18 10:30 06/19/18 10:29 Risperidone (RisperDAL) 2 mg BEDTIME ORAL 05/20/18 21:00 06/19/18 20:59 05/21/18 21:34 Temazepam (Restoril) 15 mg HSPRN PRN ORAL Insomnia 05/20/18 21:00 05/27/18 20:59 Vancomycin HCl (Vanco rx to dose) 1 ea DAILY PRN MISC Per rx protocol 05/21/18 13:45 06/20/18 13:44 Vancomycin HCl 500 mg/Dextrose 110 ml @ 110 mls/hr Q12H IVPB 05/21/18 15:00 05/26/18 14:59 05/22/18 03:05 Josue Todd MD May 22, 2018 13:49
[2018-05-22] MEDS: Cefepime HCl 1 GM in D5W 55 ML IVPB SCH (14:53)
--- NOTE | 2018-05-22 14:55 | Internal Med Progress Note ---
Subjective Date of Service: May 22, 2018 Physician Name Juan Dutta Attending Physician Yonathan Mendoza MD Current Medications Medications (Trade) Dose Ordered Sig/Ibrahima Route PRN Reason Start Time Stop Time Status Last Admin Dose Admin Acetaminophen (Tylenol) 650 mg Q4H PRN ORAL Fever 05/20/18 10:30 06/19/18 10:29 05/21/18 15:04 Albuterol/ Ipratropium (Albuterol/ Ipratropium) 3 ml Q4H PRN HHN Shortness of Breath 05/20/18 10:30 05/25/18 10:29 Amiodarone HCl (Cordarone) 200 mg DAILY ORAL 05/21/18 09:00 06/20/18 08:59 05/22/18 09:15 Apixaban (Eliquis) 5 mg BID ORAL 05/20/18 18:00 06/19/18 17:59 05/22/18 09:14 Cefepime HCl 1 gm/ Dextrose 55 ml @ 110 mls/hr Q24H IVPB 05/21/18 15:00 05/28/18 14:59 05/21/18 15:00 Dextrose (Dextrose 50%) 25 ml Q30M PRN IV Hypoglycemia 05/20/18 10:30 06/19/18 10:29 Dextrose (Dextrose 50%) 50 ml Q30M PRN IV Hypoglycemia 05/20/18 10:30 06/19/18 10:29 Diltiazem HCl (Cardizem) 90 mg Q8HR ORAL 05/20/18 14:00 06/19/18 13:59 05/22/18 13:52 Mirtazapine (Remeron) 15 mg BEDTIME ORAL 05/20/18 21:00 06/19/18 20:59 05/21/18 21:34 Ondansetron HCl (Zofran) 4 mg Q6H PRN IVP Nausea & Vomiting 05/20/18 10:30 06/19/18 10:29 Polyethylene Glycol (Miralax) 17 gm DAILYPRN PRN ORAL Constipation 05/20/18 10:30 06/19/18 10:29 Risperidone (RisperDAL) 2 mg BEDTIME ORAL 05/20/18 21:00 06/19/18 20:59 05/21/18 21:34 Temazepam (Restoril) 15 mg HSPRN PRN ORAL Insomnia 05/20/18 21:00 05/27/18 20:59 Vancomycin HCl (Vanco rx to dose) 1 ea DAILY PRN MISC Per rx protocol 05/21/18 13:45 06/20/18 13:44 Vancomycin HCl 500 mg/Dextrose 110 ml @ 110 mls/hr Q12H IVPB 05/21/18 15:00 05/26/18 14:59 05/22/18 03:05 Allergies: Coded Allergies: PIPERACILLIN (Unverified Allergy, Unknown, 05/21/18) tolerates cephalosporins TAZOBACTAM (Unverified Allergy, Unknown, 03/10/18) ROS Limited/Unobtainable: Yes Subjective 77 YO F admitted with altered mental status. Now respiratory failure and pneumonia. On full face mask. Cover for Int Med-Dr Mendoza. CHRISTOPHER Objective Last Vital Signs Date Time Temp Pulse Resp B/P (MAP) Pulse Ox O2 Delivery O2 Flow Rate FiO2 05/22/18 14:37 69 22 97 Full Face 40 05/22/18 13:52 139/57 05/22/18 12:49 2.0 05/22/18 12:00 97.7 General Appearance: WD/WN, moderate distress, obese EENT: PERRL/EOMI, normal ENT inspection Neck: non-tender, normal alignment, supple, normal inspection Cardiovascular: normal peripheral pulses, normal rate, regular rhythm, no gallop/murmur, no JVD Respiratory/Chest: respiratory distress, accessory muscle use, crackles/rales, rhonchi - bilaterally, expiratory wheezing Abdomen: normal bowel sounds, non tender, soft, no organomegaly, no mass Extremities: normal range of motion, non-tender Neurologic: vp clinical research II-XII grossly normal, no motor/sensory deficits Skin: normal pigmentation, warm/dry Laboratory Tests Test 05/22/18 03:05 05/22/18 08:58 White Blood Count 7.4 K/UL (4.8-10.8) Red Blood Count 3.54 M/UL (4.20-5.40) L Hemoglobin 10.1 G/DL (12.0-16.0) L Hematocrit 31.2 % (37.0-47.0) L Mean Corpuscular Volume 88 FL (80-99) Mean Corpuscular Hemoglobin 28.5 PG (27.0-31.0) Mean Corpuscular Hemoglobin Concent 32.3 G/DL (32.0-36.0) Red Cell Distribution Width 15.2 % (11.6-14.8) H Platelet Count 168 K/UL (150-450) Mean Platelet Volume 7.0 FL (6.5-10.1) Neutrophils (%) (Auto) 74.0 % (45.0-75.0) Lymphocytes (%) (Auto) 15.1 % (20.0-45.0) L Monocytes (%) (Auto) 7.2 % (1.0-10.0) Eosinophils (%) (Auto) 2.5 % (0.0-3.0) Basophils (%) (Auto) 1.1 % (0.0-2.0) Sodium Level 138 MMOL/L (136-145) Potassium Level 3.6 MMOL/L (3.5-5.1) Chloride Level 96 MMOL/L (98-107) L Carbon Dioxide Level 40 MMOL/L (21-32) H Anion Gap 2 mmol/L (5-15) L Blood Urea Nitrogen 16 mg/dL (7-18) Creatinine 0.5 MG/DL (0.55-1.30) L Estimat Glomerular Filtration Rate mL/min (>60) Glucose Level 76 MG/DL (74-106) Calcium Level 8.8 MG/DL (8.5-10.1) Total Bilirubin 0.3 MG/DL (0.2-1.0) Aspartate Amino Transf (AST/SGOT) 22 U/L (15-37) Alanine Aminotransferase (ALT/SGPT) 21 U/L (12-78) Alkaline Phosphatase 52 U/L (46-116) Troponin I 0.000 ng/mL (0.000-0.056) Pro-B-Type Natriuretic Peptide 1581 pg/mL (0-125) H Total Protein 5.7 G/DL (6.4-8.2) L Albumin 2.5 G/DL (3.4-5.0) L Globulin 3.2 g/dL Albumin/Globulin Ratio 0.8 (1.0-2.7) L Arterial Blood pH 7.383 (7.350-7.450) Arterial Blood Partial Pressure CO2 58.9 mmHg (35.0-45.0) *H Arterial Blood Partial Pressure O2 89.5 mmHg (75.0-100.0) Arterial Blood HCO3 34.3 mmol/L (22.0-26.0) H Arterial Blood Oxygen Saturation 96.2 % (95-100) Arterial Blood Base Excess 7.7 (-2-2) H Ian Test Positive Microbiology Date/Time Source Procedure Growth Status 05/19/18 21:28 Blood Blood Culture - Preliminary Gram Positive Cocci Resulted 05/19/18 21:18 Blood Blood Culture - Preliminary Gram Positive Cocci Resulted 05/19/18 23:00 Nasal Nares Influenza Types A,B Antigen (ENA) - Final Complete Intake and Output 05/21/18 05/22/18 19:00 07:00 Intake Total 475 ml 40 ml Output Total 350 ml Balance 475 ml -310 ml Intake Oral 255 ml 40 ml IV Total 220 ml Output Urine Total 350 ml # Bowel Movements 2 Assessment/Plan Problem List: (1) Paranoid schizophrenia Assessment & Plan: Continue risperdal-see psych note. (2) Pneumonia Assessment & Plan: See pulmonary note. Continues on full face BIPAP. Continue vanco and cefepime per ID (3) Altered mental status (4) Respiratory failure Assessment & Plan: Continue full face BIPAP per pulmonary (5) Hypoxia (6) Atrial flutter (7) CHF (congestive heart failure) Assessment & Plan: See cardiology note. (8) COPD (chronic obstructive pulmonary disease) (9) CAD (coronary artery disease) (10) HTN (hypertension) (11) Seizure disorder Juan Dutta MD May 22, 2018 14:55
--- NOTE | 2018-05-22 15:14 | Infectious Diseases Prog Note ---
Assessment/Plan Assessment/Plan Assessment: Acute respiratory failure, on BIpap- due to combination of PNA and CHF -05/22 CXR: Hazy right basilar opacity, left lateral basilar opacity are all unchanged. Borderline cardiomegaly persists. Monitoring device again overlies the left hemidiaphragm -CXR: Right basilar opacity, likely combination of pleural fluid and infiltrate, increased from 04/16/2018. Large left pleural effusion, may be slightly increased from 04/16/2018. Generalized interstitial prominence, may be combination of interstitial edema and chronic interstitial changes. -influenza sc neg Gram positive bacteremia, high grade- r/o S.aures -05/19 Bcx 4/4 +GPC clusters; 05/21 Bc xp 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, Legionella 04/2018, s/p Rx SP VDRF, 04/10 Sp extubated Legionella Ur Ag: Neg, Legionella IgM + / IgG - Scx: No sig growth Flu screen negative Atrial flutter dCHF COPD CAD s/p stents Hypertension Seizure disorder Schizophrenia Depression History of intraventricular pacemaker implantation GERD CVA/TIA b/l hip replacement hx of L DVT history of alcohol abuse hx of recurrent admissions hx of high grade CONS bacteremia (JIMY neg 09/2017) [facility] resident Plan: -Cont empiric IV Vancomycin and Cefepime #2 pending cultures -05/19 SP Levaquin x1 -f/u Bcx x2, sp cx, legionella ag urine -f/u cx -Monitor CBC/CMP, temperatures -aspiration precautions Thank you for this consultation. Will continue to follow along with you. Discussed with RN. Subjective Allergies: Coded Allergies: PIPERACILLIN (Unverified Allergy, Unknown, 05/21/18) tolerates cephalosporins TAZOBACTAM (Unverified Allergy, Unknown, 03/10/18) Objective Vital Signs Last 24 Hour Vital Signs Date Time Temp Pulse Resp B/P (MAP) Pulse Ox O2 Delivery O2 Flow Rate FiO2 05/22/18 14:37 69 22 97 Full Face 40 05/22/18 13:52 76 139/57 05/22/18 12:49 76 20 95 2.0 28 05/22/18 12:01 60 05/22/18 12:00 97.7 61 16 139/57 (84) 100 05/22/18 12:00 Bi-pap 40.0 Room Air 05/22/18 10:50 67 21 98 Full Face 40 05/22/18 09:22 70 22 98 Full Face 40 05/22/18 08:09 65 05/22/18 08:00 Bi-pap 40.0 Room Air 05/22/18 08:00 96.8 60 16 113/48 (69) 97 05/22/18 06:49 60 16 98 Full Face 40 05/22/18 06:36 Bi-pap Bi-pap 05/22/18 05:47 64 145/62 05/22/18 05:14 65 19 99 Full Face 40 05/22/18 04:00 97.4 60 16 123/57 (79) 100 05/22/18 04:00 60 05/22/18 04:00 Bi-pap 40.0 Bi-pap 40.0 05/22/18 02:49 60 17 99 Full Face 40 05/22/18 01:17 63 20 97 Facial 40 05/22/18 00:00 Bi-pap 40.0 Bi-pap 40.0 05/22/18 00:00 97.6 63 22 133/56 (81) 96 05/22/18 00:00 64 05/21/18 22:44 70 20 28 2.0 28 05/21/18 21:34 67 123/61 05/21/18 21:17 68 16 97 Full Face 40 05/21/18 20:00 97.5 67 16 123/61 (81) 97 05/21/18 20:00 Bi-pap 40.0 Bi-pap 40.0 05/21/18 20:00 64 05/21/18 19:13 62 26 98 Full Face 40 05/21/18 17:03 68 24 98 05/21/18 16:00 98.6 78 20 145/68 (93) 98 05/21/18 16:00 Bi-pap 40.0 Bi-pap 40.0 05/21/18 15:47 76 05/21/18 15:30 67 98 Height (Feet): 5 Height (Inches): 2.00 Weight (Pounds): 184 Objective GENERAL: An elderly female, on BiPAP therapy. NECK: Supple. No jugular venous distention. LUNGS: Crackles heard slightly. Breath sounds otherwise decreased bilaterally. CARDIAC: Irregularly irregular. Not tachycardic. No heaves or thrills noted. ABDOMEN: Soft and nontender. Positive bowel sounds. EXTREMITIES: There is no clubbing, cyanosis, or edema. NEUROLOGICAL: She is awake, alert, responsive, and moves all four extremities Microbiology Date/Time Source Procedure Growth Status 05/19/18 21:28 Blood Blood Culture - Preliminary Gram Positive Cocci Resulted 05/19/18 21:18 Blood Blood Culture - Preliminary Gram Positive Cocci Resulted 05/19/18 23:00 Nasal Nares Influenza Types A,B Antigen (ENA) - Final Complete Laboratory Tests Test 05/22/18 03:05 05/22/18 08:58 White Blood Count 7.4 K/UL (4.8-10.8) Red Blood Count 3.54 M/UL (4.20-5.40) L Hemoglobin 10.1 G/DL (12.0-16.0) L Hematocrit 31.2 % (37.0-47.0) L Mean Corpuscular Volume 88 FL (80-99) Mean Corpuscular Hemoglobin 28.5 PG (27.0-31.0) Mean Corpuscular Hemoglobin Concent 32.3 G/DL (32.0-36.0) Red Cell Distribution Width 15.2 % (11.6-14.8) H Platelet Count 168 K/UL (150-450) Mean Platelet Volume 7.0 FL (6.5-10.1) Neutrophils (%) (Auto) 74.0 % (45.0-75.0) Lymphocytes (%) (Auto) 15.1 % (20.0-45.0) L Monocytes (%) (Auto) 7.2 % (1.0-10.0) Eosinophils (%) (Auto) 2.5 % (0.0-3.0) Basophils (%) (Auto) 1.1 % (0.0-2.0) Sodium Level 138 MMOL/L (136-145) Potassium Level 3.6 MMOL/L (3.5-5.1) Chloride Level 96 MMOL/L (98-107) L Carbon Dioxide Level 40 MMOL/L (21-32) H Anion Gap 2 mmol/L (5-15) L Blood Urea Nitrogen 16 mg/dL (7-18) Creatinine 0.5 MG/DL (0.55-1.30) L Estimat Glomerular Filtration Rate mL/min (>60) Glucose Level 76 MG/DL (74-106) Calcium Level 8.8 MG/DL (8.5-10.1) Total Bilirubin 0.3 MG/DL (0.2-1.0) Aspartate Amino Transf (AST/SGOT) 22 U/L (15-37) Alanine Aminotransferase (ALT/SGPT) 21 U/L (12-78) Alkaline Phosphatase 52 U/L (46-116) Troponin I 0.000 ng/mL (0.000-0.056) Pro-B-Type Natriuretic Peptide 1581 pg/mL (0-125) H Total Protein 5.7 G/DL (6.4-8.2) L Albumin 2.5 G/DL (3.4-5.0) L Globulin 3.2 g/dL Albumin/Globulin Ratio 0.8 (1.0-2.7) L Arterial Blood pH 7.383 (7.350-7.450) Arterial Blood Partial Pressure CO2 58.9 mmHg (35.0-45.0) *H Arterial Blood Partial Pressure O2 89.5 mmHg (75.0-100.0) Arterial Blood HCO3 34.3 mmol/L (22.0-26.0) H Arterial Blood Oxygen Saturation 96.2 % (95-100) Arterial Blood Base Excess 7.7 (-2-2) H Ian Test Positive Current Medications Medications (Trade) Dose Ordered Sig/Ibrahima Route PRN Reason Start Time Stop Time Status Last Admin Dose Admin Acetaminophen (Tylenol) 650 mg Q4H PRN ORAL Fever 05/20/18 10:30 06/19/18 10:29 05/21/18 15:04 Albuterol/ Ipratropium (Albuterol/ Ipratropium) 3 ml Q4H PRN HHN Shortness of Breath 05/20/18 10:30 05/25/18 10:29 Amiodarone HCl (Cordarone) 200 mg DAILY ORAL 05/21/18 09:00 06/20/18 08:59 05/22/18 09:15 Apixaban (Eliquis) 5 mg BID ORAL 05/20/18 18:00 06/19/18 17:59 05/22/18 09:14 Cefepime HCl 1 gm/ Dextrose 55 ml @ 110 mls/hr Q24H IVPB 05/21/18 15:00 05/28/18 14:59 05/22/18 14:53 Dextrose (Dextrose 50%) 25 ml Q30M PRN IV Hypoglycemia 05/20/18 10:30 06/19/18 10:29 Dextrose (Dextrose 50%) 50 ml Q30M PRN IV Hypoglycemia 05/20/18 10:30 06/19/18 10:29 Diltiazem HCl (Cardizem) 90 mg Q8HR ORAL 05/20/18 14:00 06/19/18 13:59 05/22/18 13:52 Mirtazapine (Remeron) 15 mg BEDTIME ORAL 05/20/18 21:00 06/19/18 20:59 05/21/18 21:34 Ondansetron HCl (Zofran) 4 mg Q6H PRN IVP Nausea & Vomiting 05/20/18 10:30 06/19/18 10:29 Polyethylene Glycol (Miralax) 17 gm DAILYPRN PRN ORAL Constipation 05/20/18 10:30 06/19/18 10:29 Risperidone (RisperDAL) 2 mg BEDTIME ORAL 05/20/18 21:00 06/19/18 20:59 05/21/18 21:34 Temazepam (Restoril) 15 mg HSPRN PRN ORAL Insomnia 05/20/18 21:00 05/27/18 20:59 Vancomycin HCl (Vanco rx to dose) 1 ea DAILY PRN MISC Per rx protocol 05/21/18 13:45 06/20/18 13:44 Vancomycin HCl 500 mg/Dextrose 110 ml @ 110 mls/hr Q12H IVPB 05/21/18 15:00 05/26/18 14:59 05/22/18 03:05 Danica Nayak M.D. May 22, 2018 15:14
[2018-05-22 16:00] VITALS: BP 139/53
[2018-05-22] MEDS ORDERED: guaiFENesin 100mg/5ml Liq ud ORAL PRN (18:15)
--- NOTE | 2018-05-22 18:45 | Cardiology Progress Note ---
Assessment/Plan Assessment/Plan 1. Permanent atrial fibrillation/flutter. 2. History of congestive heart failure, diastolic in origin. 3. COPD. 4. Reported history of coronary artery disease. 5. History of permanent pacemaker implantation leadless device. 6. Atrial fibrillation previously. 7. History of COPD. 8. Pneumonia. 9. Pleural effusion. 10. History of psychosis and schizophrenia. 11. Bacteremia gpc trop neg tele noted afib vr ok cxr noted treat for underlying pneumonia iv abx abdirizak kay and mary munguia id input with final bc identification Subjective Cardiovascular: Denies: chest pain, irregular heart rate, lightheadedness Respiratory: Denies: shortness of breath Gastrointestinal/Abdominal: Denies: abdomen distended Genitourinary: Denies: burning Objective Last 24 Hour Vital Signs Date Time Temp Pulse Resp B/P (MAP) Pulse Ox O2 Delivery O2 Flow Rate FiO2 05/22/18 17:14 76 20 95 2.0 28 05/22/18 16:05 65 05/22/18 16:00 40 05/22/18 16:00 Bi-pap 40.0 Room Air 05/22/18 16:00 97.3 64 16 139/53 (81) 98 05/22/18 14:37 69 22 97 Full Face 40 05/22/18 13:52 76 139/57 05/22/18 12:49 76 20 95 2.0 28 05/22/18 12:01 60 05/22/18 12:00 40 05/22/18 12:00 97.7 61 16 139/57 (84) 100 05/22/18 12:00 Bi-pap 40.0 Room Air 05/22/18 10:50 67 21 98 Full Face 40 05/22/18 09:22 70 22 98 Full Face 40 05/22/18 08:09 65 05/22/18 08:00 Bi-pap 40.0 Room Air 05/22/18 08:00 96.8 60 16 113/48 (69) 97 05/22/18 06:49 60 16 98 Full Face 40 05/22/18 06:36 Bi-pap Bi-pap 05/22/18 05:47 64 145/62 05/22/18 05:14 65 19 99 Full Face 40 05/22/18 04:00 97.4 60 16 123/57 (79) 100 05/22/18 04:00 60 05/22/18 04:00 Bi-pap 40.0 Bi-pap 40.0 05/22/18 02:49 60 17 99 Full Face 40 05/22/18 01:17 63 20 97 Facial 40 05/22/18 00:00 Bi-pap 40.0 Bi-pap 40.0 05/22/18 00:00 97.6 63 22 133/56 (81) 96 05/22/18 00:00 64 05/21/18 22:44 70 20 28 2.0 28 05/21/18 21:34 67 123/61 05/21/18 21:17 68 16 97 Full Face 40 05/21/18 20:00 97.5 67 16 123/61 (81) 97 05/21/18 20:00 Bi-pap 40.0 Bi-pap 40.0 05/21/18 20:00 64 05/21/18 19:13 62 26 98 Full Face 40 General Appearance: alert Neck: supple Cardiovascular: irregularly irregular Respiratory/Chest: decreased breath sounds, expiratory wheezing Abdomen: normal bowel sounds, non tender, soft Extremities: no swelling Intake and Output 05/21/18 05/22/18 19:00 07:00 Intake Total 475 ml 40 ml Output Total 350 ml Balance 475 ml -310 ml Intake Oral 255 ml 40 ml IV Total 220 ml Output Urine Total 350 ml # Bowel Movements 2 Laboratory Tests Test 05/22/18 03:05 05/22/18 08:58 White Blood Count 7.4 K/UL (4.8-10.8) Red Blood Count 3.54 M/UL (4.20-5.40) L Hemoglobin 10.1 G/DL (12.0-16.0) L Hematocrit 31.2 % (37.0-47.0) L Mean Corpuscular Volume 88 FL (80-99) Mean Corpuscular Hemoglobin 28.5 PG (27.0-31.0) Mean Corpuscular Hemoglobin Concent 32.3 G/DL (32.0-36.0) Red Cell Distribution Width 15.2 % (11.6-14.8) H Platelet Count 168 K/UL (150-450) Mean Platelet Volume 7.0 FL (6.5-10.1) Neutrophils (%) (Auto) 74.0 % (45.0-75.0) Lymphocytes (%) (Auto) 15.1 % (20.0-45.0) L Monocytes (%) (Auto) 7.2 % (1.0-10.0) Eosinophils (%) (Auto) 2.5 % (0.0-3.0) Basophils (%) (Auto) 1.1 % (0.0-2.0) Sodium Level 138 MMOL/L (136-145) Potassium Level 3.6 MMOL/L (3.5-5.1) Chloride Level 96 MMOL/L (98-107) L Carbon Dioxide Level 40 MMOL/L (21-32) H Anion Gap 2 mmol/L (5-15) L Blood Urea Nitrogen 16 mg/dL (7-18) Creatinine 0.5 MG/DL (0.55-1.30) L Estimat Glomerular Filtration Rate mL/min (>60) Glucose Level 76 MG/DL (74-106) Calcium Level 8.8 MG/DL (8.5-10.1) Total Bilirubin 0.3 MG/DL (0.2-1.0) Aspartate Amino Transf (AST/SGOT) 22 U/L (15-37) Alanine Aminotransferase (ALT/SGPT) 21 U/L (12-78) Alkaline Phosphatase 52 U/L (46-116) Troponin I 0.000 ng/mL (0.000-0.056) Pro-B-Type Natriuretic Peptide 1581 pg/mL (0-125) H Total Protein 5.7 G/DL (6.4-8.2) L Albumin 2.5 G/DL (3.4-5.0) L Globulin 3.2 g/dL Albumin/Globulin Ratio 0.8 (1.0-2.7) L Arterial Blood pH 7.383 (7.350-7.450) Arterial Blood Partial Pressure CO2 58.9 mmHg (35.0-45.0) *H Arterial Blood Partial Pressure O2 89.5 mmHg (75.0-100.0) Arterial Blood HCO3 34.3 mmol/L (22.0-26.0) H Arterial Blood Oxygen Saturation 96.2 % (95-100) Arterial Blood Base Excess 7.7 (-2-2) H Ian Test Positive Microbiology Date/Time Source Procedure Growth Status 05/19/18 21:28 Blood Blood Culture - Preliminary Gram Positive Cocci Resulted 05/19/18 21:18 Blood Blood Culture - Preliminary Gram Positive Cocci Resulted 05/19/18 23:00 Nasal Nares Influenza Types A,B Antigen (ENA) - Final Complete Akbar Reno MD May 22, 2018 18:45
[2018-05-22 20:00] VITALS: BP 125/62
[2018-05-23] VITALS: BP 135/57
--- NOTE | 2018-05-23 01:27 | General Progress Note ---
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 (2) Major depression ICD Codes: F32.9 - Major depressive disorder, single episode, unspecified SNOMED: 86187742, [id number] (3) Schizophrenia ICD Codes: F20.9 - Schizophrenia, unspecified SNOMED: 31042190 Status: stable Assessment/Plan Risperdal 2mg qhs ativan prn raise the head Subjective Date patient seen: May 22, 2018 Neurologic/Psychiatric: Reports: anxiety, depressed, emotional problems Allergies: Coded Allergies: PIPERACILLIN (Unverified Allergy, Unknown, 05/21/18) tolerates cephalosporins TAZOBACTAM (Unverified Allergy, Unknown, 03/10/18) Objective Last 24 Hour Vital Signs Date Time Temp Pulse Resp B/P (MAP) Pulse Ox O2 Delivery O2 Flow Rate FiO2 05/23/18 00:40 65 18 98 Full Face 40 05/23/18 00:00 Bi-pap 40.0 Room Air 05/23/18 00:00 98.0 60 17 135/57 (83) 99 05/23/18 00:00 68 05/22/18 22:46 63 16 99 Full Face 40 05/22/18 22:36 60 125/62 05/22/18 20:53 71 18 99 Full Face 40 05/22/18 20:00 Bi-pap 40.0 Room Air 05/22/18 20:00 98.5 60 22 125/62 (83) 99 05/22/18 20:00 40 05/22/18 19:47 66 05/22/18 19:12 64 23 97 Full Face 40 05/22/18 17:14 76 20 95 2.0 28 05/22/18 16:05 65 05/22/18 16:00 40 05/22/18 16:00 Bi-pap 40.0 Room Air 05/22/18 16:00 97.3 64 16 139/53 (81) 98 05/22/18 14:37 69 22 97 Full Face 40 05/22/18 13:52 76 139/57 05/22/18 12:49 76 20 95 2.0 28 05/22/18 12:01 60 05/22/18 12:00 40 05/22/18 12:00 97.7 61 16 139/57 (84) 100 05/22/18 12:00 Bi-pap 40.0 Room Air 05/22/18 10:50 67 21 98 Full Face 40 05/22/18 09:22 70 22 98 Full Face 40 05/22/18 08:09 65 05/22/18 08:00 Bi-pap 40.0 Room Air 05/22/18 08:00 96.8 60 16 113/48 (69) 97 05/22/18 06:49 60 16 98 Full Face 40 05/22/18 06:36 Bi-pap Bi-pap 05/22/18 05:47 64 145/62 05/22/18 05:14 65 19 99 Full Face 40 05/22/18 04:00 97.4 60 16 123/57 (79) 100 05/22/18 04:00 60 05/22/18 04:00 Bi-pap 40.0 Bi-pap 40.0 05/22/18 02:49 60 17 99 Full Face 40 Intake and Output 05/22/18 05/23/18 19:00 07:00 Intake Total 240 ml Output Total 500 ml Balance -260 ml Intake Oral 240 ml Output Urine Total 500 ml Laboratory Tests 05/22/18 03:05: White Blood Count 7.4, Red Blood Count 3.54L, Hemoglobin 10.1L, Hematocrit 31.2L , Mean Corpuscular Volume 88, Mean Corpuscular Hemoglobin 28.5, Mean Corpuscular Hemoglobin Concent 32.3, Red Cell Distribution Width 15.2H, Platelet Count 168, Mean Platelet Volume 7.0, Neutrophils (%) (Auto) 74.0, Lymphocytes (%) (Auto) 15.1L, Monocytes (%) (Auto) 7.2, Eosinophils (%) (Auto) 2.5, Basophils (%) (Auto) 1.1, Sodium Level 138, Potassium Level 3.6, Chloride Level 96L, Carbon Dioxide Level 40H, Anion Gap 2L, Blood Urea Nitrogen 16, Creatinine 0.5L, Estimat Glomerular Filtration Rate , Glucose Level 76, Calcium Level 8.8, Total Bilirubin 0.3, Aspartate Amino Transf (AST/SGOT) 22, Alanine Aminotransferase (ALT/SGPT) 21, Alkaline Phosphatase 52, Troponin I 0.000, Pro-B -Type Natriuretic Peptide 1581H, Total Protein 5.7L, Albumin 2.5L, Globulin 3.2 , Albumin/Globulin Ratio 0.8L 05/22/18 08:58: Arterial Blood pH 7.383, Arterial Blood Partial Pressure CO2 58.9*H, Arterial Blood Partial Pressure O2 89.5, Arterial Blood HCO3 34.3H, Arterial Blood Oxygen Saturation 96.2, Arterial Blood Base Excess 7.7H, Ian Test Positive Height (Feet): 5 Height (Inches): 2.00 Weight (Pounds): 184 Neurologic: alert, oriented x 3, responsive, depressed affect Luiz Morrison MD May 23, 2018 01:27
[2018-05-23 02:26] LABS: BASOPHILS % (AUTO) 1.5 % (0.0-2.0); EOSINOPHILS % (AUTO) 2.5 % (0.0-3.0); HEMATOCRIT 31.6 % (37.0-47.0); HEMOGLOBIN 10.2 G/DL (12.0-16.0); LYMPHOCYTES % (AUTO) 12.7 % (20.0-45.0); MEAN CORPUSCULAR VOLUME 87 FL (80-99); MONOCYTES % (AUTO) 6.4 % (1.0-10.0); NEUTROPHILS % (AUTO) 76.9 % (45.0-75.0); PLATELET COUNT 186 K/UL (150-450); RED BLOOD COUNT 3.64 M/UL (4.20-5.40); RED CELL DISTRIBUTION WIDTH 14.7 % (11.6-14.8)
[2018-05-23 02:33] LABS: ANION GAP 4 mmol/L (5-15); BLOOD UREA NITROGEN 14 mg/dL (7-18); CALCIUM 8.6 MG/DL (8.5-10.1); CARBON DIOXIDE 37 MMOL/L (21-32); CHLORIDE 97 MMOL/L (98-107); CREATININE 0.5 MG/DL (0.55-1.30); SODIUM 138 MMOL/L (136-145)
[2018-05-23] MEDS ORDERED: Vancomycin 1gm/D5W 275ml IVPB SCH ×2 (03:15)
[2018-05-23 04:00] VITALS: BP 147/58
[2018-05-23] MEDS: dilTIAZem HCl 90mg tab ORAL SCH ×3 (06:43→21:47)
[2018-05-23 08:00] VITALS: BP 109/53
[2018-05-23] MEDS: Vancomycin 500mg/D5W 110ml IVPB SCH ×2 (08:10)
[2018-05-23] MEDS: Amiodarone 200mg tab ORAL SCH (09:00)
[2018-05-23] MEDS: Eliquis 2.5mg tablet ORAL SCH ×2 (09:00→19:00)
--- NOTE | 2018-05-23 10:41 | Infectious Diseases Prog Note ---
Assessment/Plan Assessment/Plan Assessment: Acute respiratory failure, on BIpap- due to combination of PNA and CHF -05/22 CXR: Hazy right basilar opacity, left lateral basilar opacity are all unchanged. Borderline cardiomegaly persists. Monitoring device again overlies the left hemidiaphragm -CXR: Right basilar opacity, likely combination of pleural fluid and infiltrate, increased from 04/16/2018. Large left pleural effusion, may be slightly increased from 04/16/2018. Generalized interstitial prominence, may be combination of interstitial edema and chronic interstitial changes. -influenza sc neg -sp cx p Gram positive bacteremia, high grade- suspect contaminants -05/19 Bcx 3/4 S. hominis sp hominis; 05/21 Bc xNTD -2d eCho: no vegetations. Focal aortic valve sclerosis with reduced cusp excursion. Thickened mitral valve leaflets with reduced excursion. 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, Legionella 04/2018, s/p Rx SP VDRF, 04/10 Sp extubated Legionella Ur Ag: Neg, Legionella IgM + / IgG - Scx: No sig growth Flu screen negative Atrial flutter dCHF COPD CAD s/p stents Hypertension Seizure disorder Schizophrenia Depression History of intraventricular pacemaker implantation GERD CVA/TIA b/l hip replacement hx of L DVT history of alcohol abuse hx of recurrent admissions hx of high grade CONS bacteremia (JIMY neg 09/2017) SNF resident Plan: -Cont empiric IV Vancomycin and Cefepime #3 pending cultures -05/19 SP Levaquin x1 -f/u Bcx x2, sp cx, legionella ag urine -f/u cx -Monitor CBC/CMP, temperatures -aspiration precautions Thank you for this consultation. Will continue to follow along with you. Discussed with RN. Subjective Allergies: Coded Allergies: PIPERACILLIN (Unverified Allergy, Unknown, 05/21/18) tolerates cephalosporins TAZOBACTAM (Unverified Allergy, Unknown, 03/10/18) Subjective afebrile repeat bCX ntd SP CX P Objective Vital Signs Last 24 Hour Vital Signs Date Time Temp Pulse Resp B/P (MAP) Pulse Ox O2 Delivery O2 Flow Rate FiO2 05/23/18 09:09 62 18 99 Full Face 40 05/23/18 08:00 98.4 65 19 109/53 (71) 98 05/23/18 08:00 2.0 05/23/18 08:00 Nasal Cannula 2.0 Room Air 05/23/18 07:57 62 05/23/18 06:43 63 147/58 05/23/18 04:57 61 18 98 Full Face 40 05/23/18 04:00 97.9 63 17 147/58 (87) 98 05/23/18 04:00 40 05/23/18 04:00 Bi-pap 40.0 Room Air 05/23/18 03:39 67 05/23/18 02:55 68 20 99 Full Face 40 05/23/18 00:40 65 18 98 Full Face 40 05/23/18 00:00 Bi-pap 40.0 Room Air 05/23/18 00:00 98.0 60 17 135/57 (83) 99 05/23/18 00:00 68 05/22/18 22:46 63 16 99 Full Face 40 05/22/18 22:36 60 125/62 05/22/18 20:53 71 18 99 Full Face 40 05/22/18 20:00 Bi-pap 40.0 Room Air 05/22/18 20:00 98.5 60 22 125/62 (83) 99 05/22/18 20:00 40 05/22/18 19:47 66 05/22/18 19:12 64 23 97 Full Face 40 05/22/18 17:14 76 20 95 2.0 28 05/22/18 16:05 65 05/22/18 16:00 40 05/22/18 16:00 Bi-pap 40.0 Room Air 05/22/18 16:00 97.3 64 16 139/53 (81) 98 05/22/18 14:37 69 22 97 Full Face 40 05/22/18 13:52 76 139/57 05/22/18 12:49 76 20 95 2.0 28 05/22/18 12:01 60 05/22/18 12:00 40 05/22/18 12:00 97.7 61 16 139/57 (84) 100 05/22/18 12:00 Bi-pap 40.0 Room Air 05/22/18 10:50 67 21 98 Full Face 40 Height (Feet): 5 Height (Inches): 2.00 Weight (Pounds): 184 Objective GENERAL: An elderly female, on BiPAP therapy. NECK: Supple. No jugular venous distention. LUNGS: Crackles heard slightly. Breath sounds otherwise decreased bilaterally. CARDIAC: Irregularly irregular. Not tachycardic. No heaves or thrills noted. ABDOMEN: Soft and nontender. Positive bowel sounds. EXTREMITIES: There is no clubbing, cyanosis, or edema. NEUROLOGICAL: She is awake, alert, responsive, and moves all four extremities Microbiology Date/Time Source Procedure Growth Status 05/21/18 16:15 Blood Blood Culture - Preliminary NO GROWTH AFTER 24 HOURS Resulted 05/21/18 16:00 Blood Blood Culture - Preliminary NO GROWTH AFTER 24 HOURS Resulted Laboratory Tests Test 05/23/18 02:20 05/23/18 04:00 White Blood Count 8.0 K/UL (4.8-10.8) Red Blood Count 3.64 M/UL (4.20-5.40) L Hemoglobin 10.2 G/DL (12.0-16.0) L Hematocrit 31.6 % (37.0-47.0) L Mean Corpuscular Volume 87 FL (80-99) Mean Corpuscular Hemoglobin 28.0 PG (27.0-31.0) Mean Corpuscular Hemoglobin Concent 32.2 G/DL (32.0-36.0) Red Cell Distribution Width 14.7 % (11.6-14.8) Platelet Count 186 K/UL (150-450) Mean Platelet Volume 6.5 FL (6.5-10.1) Neutrophils (%) (Auto) 76.9 % (45.0-75.0) H Lymphocytes (%) (Auto) 12.7 % (20.0-45.0) L Monocytes (%) (Auto) 6.4 % (1.0-10.0) Eosinophils (%) (Auto) 2.5 % (0.0-3.0) Basophils (%) (Auto) 1.5 % (0.0-2.0) Sodium Level 138 MMOL/L (136-145) Potassium Level 4.0 MMOL/L (3.5-5.1) Chloride Level 97 MMOL/L (98-107) L Carbon Dioxide Level 37 MMOL/L (21-32) H Anion Gap 4 mmol/L (5-15) L Blood Urea Nitrogen 14 mg/dL (7-18) Creatinine 0.5 MG/DL (0.55-1.30) L Estimat Glomerular Filtration Rate mL/min (>60) Glucose Level 89 MG/DL (74-106) Calcium Level 8.6 MG/DL (8.5-10.1) Vancomycin Level Trough 8.1 ug/mL (5.0-12.0) Arterial Blood pH 7.370 (7.350-7.450) Arterial Blood Partial Pressure CO2 66.2 mmHg (35.0-45.0) *H Arterial Blood Partial Pressure O2 98.5 mmHg (75.0-100.0) Arterial Blood HCO3 38.2 mmol/L (22.0-26.0) H Arterial Blood Oxygen Saturation 97.0 % (95-100) Arterial Blood Base Excess 10.9 (-2-2) *H Ian Test Positive Current Medications Medications (Trade) Dose Ordered Sig/Ibrahima Route PRN Reason Start Time Stop Time Status Last Admin Dose Admin Acetaminophen (Tylenol) 650 mg Q4H PRN ORAL Fever 05/20/18 10:30 06/19/18 10:29 05/21/18 15:04 Albuterol/ Ipratropium (Albuterol/ Ipratropium) 3 ml Q4H PRN HHN Shortness of Breath 05/20/18 10:30 05/25/18 10:29 Amiodarone HCl (Cordarone) 200 mg DAILY ORAL 05/21/18 09:00 06/20/18 08:59 05/23/18 09:00 Apixaban (Eliquis) 5 mg BID ORAL 05/20/18 18:00 06/19/18 17:59 05/23/18 09:00 Cefepime HCl 1 gm/ Dextrose 55 ml @ 110 mls/hr Q24H IVPB 05/21/18 15:00 05/28/18 14:59 05/22/18 14:53 Dextrose (Dextrose 50%) 25 ml Q30M PRN IV Hypoglycemia 05/20/18 10:30 06/19/18 10:29 Dextrose (Dextrose 50%) 50 ml Q30M PRN IV Hypoglycemia 05/20/18 10:30 06/19/18 10:29 Diltiazem HCl (Cardizem) 90 mg Q8HR ORAL 05/20/18 14:00 06/19/18 13:59 05/23/18 06:43 Guaifenesin (Robitussin) 200 mg Q4H PRN ORAL For Cough 05/22/18 18:15 06/21/18 18:14 05/22/18 18:27 Mirtazapine (Remeron) 15 mg BEDTIME ORAL 05/20/18 21:00 06/19/18 20:59 05/22/18 20:45 Ondansetron HCl (Zofran) 4 mg Q6H PRN IVP Nausea & Vomiting 05/20/18 10:30 06/19/18 10:29 Polyethylene Glycol (Miralax) 17 gm DAILYPRN PRN ORAL Constipation 05/20/18 10:30 06/19/18 10:29 Risperidone (RisperDAL) 2 mg BEDTIME ORAL 05/20/18 21:00 06/19/18 20:59 05/22/18 20:45 Temazepam (Restoril) 15 mg HSPRN PRN ORAL Insomnia 05/20/18 21:00 05/27/18 20:59 Vancomycin HCl (Vanco rx to dose) 1 ea DAILY PRN MISC Per rx protocol 05/21/18 13:45 06/20/18 13:44 Vancomycin HCl 1 gm/Dextrose 275 ml @ 183.708 mls/hr Q12HR@0400,1600 IVPB 05/23/18 16:00 05/28/18 15:59 Danica Nayak M.D. May 23, 2018 10:41
--- NOTE | 2018-05-23 11:27 | Cardiology Progress Note ---
Assessment/Plan Assessment/Plan 1. Permanent atrial fibrillation/flutter. 2. History of congestive heart failure, diastolic in origin. 3. COPD. 4. Reported history of coronary artery disease. 5. History of permanent pacemaker implantation leadless device. 6. Atrial fibrillation previously. 7. History of COPD. 8. Pneumonia. 9. Pleural effusion. 10. History of psychosis and schizophrenia. 11. Bacteremia staph hominis trop neg tele noted afib vr ok cxr noted treat for underlying pneumonia iv abx hhn amiod and eliquis id feel staph is contaminent back on bibap Subjective ROS Limited/Unobtainable: Yes Subjective on bipap agian Objective Last 24 Hour Vital Signs Date Time Temp Pulse Resp B/P (MAP) Pulse Ox O2 Delivery O2 Flow Rate FiO2 05/23/18 09:09 62 18 99 Full Face 40 05/23/18 08:00 98.4 65 19 109/53 (71) 98 05/23/18 08:00 2.0 05/23/18 08:00 Nasal Cannula 2.0 Room Air 05/23/18 07:57 62 05/23/18 06:43 63 147/58 05/23/18 04:57 61 18 98 Full Face 40 05/23/18 04:00 97.9 63 17 147/58 (87) 98 05/23/18 04:00 40 05/23/18 04:00 Bi-pap 40.0 Room Air 05/23/18 03:39 67 05/23/18 02:55 68 20 99 Full Face 40 05/23/18 00:40 65 18 98 Full Face 40 05/23/18 00:00 Bi-pap 40.0 Room Air 05/23/18 00:00 98.0 60 17 135/57 (83) 99 05/23/18 00:00 68 05/22/18 22:46 63 16 99 Full Face 40 05/22/18 22:36 60 125/62 05/22/18 20:53 71 18 99 Full Face 40 05/22/18 20:00 Bi-pap 40.0 Room Air 05/22/18 20:00 98.5 60 22 125/62 (83) 99 05/22/18 20:00 40 05/22/18 19:47 66 05/22/18 19:12 64 23 97 Full Face 40 05/22/18 17:14 76 20 95 2.0 28 05/22/18 16:05 65 05/22/18 16:00 40 05/22/18 16:00 Bi-pap 40.0 Room Air 05/22/18 16:00 97.3 64 16 139/53 (81) 98 05/22/18 14:37 69 22 97 Full Face 40 05/22/18 13:52 76 139/57 05/22/18 12:49 76 20 95 2.0 28 05/22/18 12:01 60 05/22/18 12:00 40 05/22/18 12:00 97.7 61 16 139/57 (84) 100 05/22/18 12:00 Bi-pap 40.0 Room Air General Appearance: patient on isolation, other - on bipbp Neck: supple Cardiovascular: normal rate, regular rhythm Respiratory/Chest: lungs clear - ant Abdomen: normal bowel sounds, non tender, soft Extremities: no swelling Intake and Output 05/22/18 05/23/18 19:00 07:00 Intake Total 240 ml 240 ml Output Total 500 ml 450 ml Balance -260 ml -210 ml Intake Oral 240 ml 240 ml Output Urine Total 500 ml 450 ml # Bowel Movements 1 Laboratory Tests Test 05/23/18 02:20 05/23/18 04:00 White Blood Count 8.0 K/UL (4.8-10.8) Red Blood Count 3.64 M/UL (4.20-5.40) L Hemoglobin 10.2 G/DL (12.0-16.0) L Hematocrit 31.6 % (37.0-47.0) L Mean Corpuscular Volume 87 FL (80-99) Mean Corpuscular Hemoglobin 28.0 PG (27.0-31.0) Mean Corpuscular Hemoglobin Concent 32.2 G/DL (32.0-36.0) Red Cell Distribution Width 14.7 % (11.6-14.8) Platelet Count 186 K/UL (150-450) Mean Platelet Volume 6.5 FL (6.5-10.1) Neutrophils (%) (Auto) 76.9 % (45.0-75.0) H Lymphocytes (%) (Auto) 12.7 % (20.0-45.0) L Monocytes (%) (Auto) 6.4 % (1.0-10.0) Eosinophils (%) (Auto) 2.5 % (0.0-3.0) Basophils (%) (Auto) 1.5 % (0.0-2.0) Sodium Level 138 MMOL/L (136-145) Potassium Level 4.0 MMOL/L (3.5-5.1) Chloride Level 97 MMOL/L (98-107) L Carbon Dioxide Level 37 MMOL/L (21-32) H Anion Gap 4 mmol/L (5-15) L Blood Urea Nitrogen 14 mg/dL (7-18) Creatinine 0.5 MG/DL (0.55-1.30) L Estimat Glomerular Filtration Rate mL/min (>60) Glucose Level 89 MG/DL (74-106) Calcium Level 8.6 MG/DL (8.5-10.1) Vancomycin Level Trough 8.1 ug/mL (5.0-12.0) Arterial Blood pH 7.370 (7.350-7.450) Arterial Blood Partial Pressure CO2 66.2 mmHg (35.0-45.0) *H Arterial Blood Partial Pressure O2 98.5 mmHg (75.0-100.0) Arterial Blood HCO3 38.2 mmol/L (22.0-26.0) H Arterial Blood Oxygen Saturation 97.0 % (95-100) Arterial Blood Base Excess 10.9 (-2-2) *H Ian Test Positive Microbiology Date/Time Source Procedure Growth Status 05/21/18 16:15 Blood Blood Culture - Preliminary NO GROWTH AFTER 24 HOURS Resulted 05/21/18 16:00 Blood Blood Culture - Preliminary NO GROWTH AFTER 24 HOURS Resulted Akbar Reno MD May 23, 2018 11:27
[2018-05-23 12:00] VITALS: BP 125/54
[2018-05-23] MEDS: Cefepime HCl 1 GM in D5W 55 ML IVPB SCH (14:11)
[2018-05-23] MEDS: Vancomycin 1gm/D5W 275ml IVPB SCH ×2 (15:00)
[2018-05-23 16:00] VITALS: BP 122/68
[2018-05-23] MEDS ORDERED: Tubing IV Secondary IV ONE (16:29)
[2018-05-23] MEDS ORDERED: D5W 275ml ONE (16:29)
[2018-05-23] MEDS ORDERED: NS 275ml ONE (16:29)
--- NOTE | 2018-05-23 17:58 | Internal Med Progress Note ---
Subjective Date of Service: May 23, 2018 Physician Name Dutta,Juan Attending Physician Yonathan Mendoza MD Current Medications Medications (Trade) Dose Ordered Sig/Ibrahima Route PRN Reason Start Time Stop Time Status Last Admin Dose Admin Acetaminophen (Tylenol) 650 mg Q4H PRN ORAL Fever 05/20/18 10:30 06/19/18 10:29 05/21/18 15:04 Albuterol/ Ipratropium (Albuterol/ Ipratropium) 3 ml Q4H PRN HHN Shortness of Breath 05/20/18 10:30 05/25/18 10:29 Amiodarone HCl (Cordarone) 200 mg DAILY ORAL 05/21/18 09:00 06/20/18 08:59 05/23/18 09:00 Apixaban (Eliquis) 5 mg BID ORAL 05/20/18 18:00 06/19/18 17:59 05/23/18 09:00 Cefepime HCl 1 gm/ Dextrose 55 ml @ 110 mls/hr Q24H IVPB 05/21/18 15:00 05/28/18 14:59 05/23/18 14:11 Dextrose (Dextrose 50%) 25 ml Q30M PRN IV Hypoglycemia 05/20/18 10:30 06/19/18 10:29 Dextrose (Dextrose 50%) 50 ml Q30M PRN IV Hypoglycemia 05/20/18 10:30 06/19/18 10:29 Diltiazem HCl (Cardizem) 90 mg Q8HR ORAL 05/20/18 14:00 06/19/18 13:59 05/23/18 06:43 Guaifenesin (Robitussin) 200 mg Q4H PRN ORAL For Cough 05/22/18 18:15 06/21/18 18:14 05/22/18 18:27 Mirtazapine (Remeron) 15 mg BEDTIME ORAL 05/20/18 21:00 06/19/18 20:59 05/22/18 20:45 Ondansetron HCl (Zofran) 4 mg Q6H PRN IVP Nausea & Vomiting 05/20/18 10:30 06/19/18 10:29 Polyethylene Glycol (Miralax) 17 gm DAILYPRN PRN ORAL Constipation 05/20/18 10:30 06/19/18 10:29 Risperidone (RisperDAL) 2 mg BEDTIME ORAL 05/20/18 21:00 06/19/18 20:59 05/22/18 20:45 Temazepam (Restoril) 15 mg HSPRN PRN ORAL Insomnia 05/20/18 21:00 05/27/18 20:59 Vancomycin HCl (Vanco rx to dose) 1 ea DAILY PRN MISC Per rx protocol 05/21/18 13:45 06/20/18 13:44 Vancomycin HCl 1 gm/Dextrose 275 ml @ 183.708 mls/hr Q12HR@0400,1600 IVPB 05/23/18 16:00 05/28/18 15:59 05/23/18 15:00 Allergies: Coded Allergies: PIPERACILLIN (Unverified Allergy, Unknown, 05/21/18) tolerates cephalosporins TAZOBACTAM (Unverified Allergy, Unknown, 03/10/18) ROS Limited/Unobtainable: Yes Subjective 77 YO F admitted with altered mental status. Now respiratory failure and pneumonia. On full face mask. Cover for Int Med-Dr Mendoza. CHRISTOPHER Objective Last Vital Signs Date Time Temp Pulse Resp B/P (MAP) Pulse Ox O2 Delivery O2 Flow Rate FiO2 05/23/18 16:00 98.4 70 19 122/68 (86) 96 05/23/18 16:00 Bi-pap Room Air 05/23/18 14:46 40 05/23/18 12:20 2.0 Laboratory Tests Test 05/23/18 02:20 05/23/18 04:00 White Blood Count 8.0 K/UL (4.8-10.8) Red Blood Count 3.64 M/UL (4.20-5.40) L Hemoglobin 10.2 G/DL (12.0-16.0) L Hematocrit 31.6 % (37.0-47.0) L Mean Corpuscular Volume 87 FL (80-99) Mean Corpuscular Hemoglobin 28.0 PG (27.0-31.0) Mean Corpuscular Hemoglobin Concent 32.2 G/DL (32.0-36.0) Red Cell Distribution Width 14.7 % (11.6-14.8) Platelet Count 186 K/UL (150-450) Mean Platelet Volume 6.5 FL (6.5-10.1) Neutrophils (%) (Auto) 76.9 % (45.0-75.0) H Lymphocytes (%) (Auto) 12.7 % (20.0-45.0) L Monocytes (%) (Auto) 6.4 % (1.0-10.0) Eosinophils (%) (Auto) 2.5 % (0.0-3.0) Basophils (%) (Auto) 1.5 % (0.0-2.0) Sodium Level 138 MMOL/L (136-145) Potassium Level 4.0 MMOL/L (3.5-5.1) Chloride Level 97 MMOL/L (98-107) L Carbon Dioxide Level 37 MMOL/L (21-32) H Anion Gap 4 mmol/L (5-15) L Blood Urea Nitrogen 14 mg/dL (7-18) Creatinine 0.5 MG/DL (0.55-1.30) L Estimat Glomerular Filtration Rate mL/min (>60) Glucose Level 89 MG/DL (74-106) Calcium Level 8.6 MG/DL (8.5-10.1) Vancomycin Level Trough 8.1 ug/mL (5.0-12.0) Arterial Blood pH 7.370 (7.350-7.450) Arterial Blood Partial Pressure CO2 66.2 mmHg (35.0-45.0) *H Arterial Blood Partial Pressure O2 98.5 mmHg (75.0-100.0) Arterial Blood HCO3 38.2 mmol/L (22.0-26.0) H Arterial Blood Oxygen Saturation 97.0 % (95-100) Arterial Blood Base Excess 10.9 (-2-2) *H Ina Test Positive Microbiology Date/Time Source Procedure Growth Status 05/21/18 16:15 Blood Blood Culture - Preliminary NO GROWTH AFTER 24 HOURS Resulted 05/21/18 16:00 Blood Blood Culture - Preliminary NO GROWTH AFTER 24 HOURS Resulted Intake and Output 05/22/18 05/23/18 19:00 07:00 Intake Total 405 ml 240 ml Output Total 500 ml 450 ml Balance -95 ml -210 ml Intake Oral 240 ml 240 ml IV Total 165 ml Output Urine Total 500 ml 450 ml # Bowel Movements 1 Objective General Appearance: WD/WN, moderate distress, obese EENT: PERRL/EOMI, normal ENT inspection Neck: non-tender, normal alignment, supple, normal inspection Cardiovascular: normal peripheral pulses, normal rate, regular rhythm, no gallop/murmur, no JVD Respiratory/Chest: full face mask BIPAP; respiratory distress, accessory muscle use, crackles/rales, rhonchi - bilaterally, expiratory wheezing Abdomen: normal bowel sounds, non tender, soft, no organomegaly, no mass Extremities: normal range of motion, non-tender 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 (2) Pneumonia Assessment & Plan: See pulmonary note. Continues on full face BIPAP. Continue vanco and cefepime per ID (3) Altered mental status (4) Respiratory failure Assessment & Plan: Continue full face BIPAP per pulmonary (5) Hypoxia (6) Atrial flutter (7) CHF (congestive heart failure) Assessment & Plan: See cardiology note. (8) COPD (chronic obstructive pulmonary disease) (9) CAD (coronary artery disease) (10) HTN (hypertension) (11) Seizure disorder (12) Sepsis Assessment & Plan: Stpah hominis. Continue vanco per ID Status: not improved Juan Dutta MD May 23, 2018 17:58
[2018-05-23 20:00] VITALS: BP 154/64
[2018-05-23] MEDS: Ipratropium 0.02% Inh Soln 2.5ml UD HHN SCH ×2 (20:12→23:13)
--- NOTE | 2018-05-23 21:39 | General Progress Note ---
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 (2) Major depression ICD Codes: F32.9 - Major depressive disorder, single episode, unspecified SNOMED: 26798376, [id number] (3) Schizophrenia ICD Codes: F20.9 - Schizophrenia, unspecified SNOMED: 56874686 Assessment/Plan Risperdal 2mg qhs ativan prn raise the head Subjective Neurologic/Psychiatric: Reports: anxiety, depressed Allergies: Coded Allergies: PIPERACILLIN (Unverified Allergy, Unknown, 05/21/18) tolerates cephalosporins TAZOBACTAM (Unverified Allergy, Unknown, 03/10/18) Objective Last 24 Hour Vital Signs Date Time Temp Pulse Resp B/P (MAP) Pulse Ox O2 Delivery O2 Flow Rate FiO2 05/23/18 20:42 63 25 96 Full Face 40 05/23/18 20:12 70 05/23/18 20:12 72 21 97 Bi-pap 40 05/23/18 19:36 76 15 96 Full Face 40 05/23/18 19:08 20 94 32 05/23/18 17:29 18 98 05/23/18 16:00 98.4 70 19 122/68 (86) 96 05/23/18 16:00 Bi-pap Room Air 05/23/18 15:23 73 05/23/18 14:46 68 17 98 Full Face 40 05/23/18 14:00 60 125/54 05/23/18 13:50 40 05/23/18 13:05 64 18 99 Full Face 40 05/23/18 12:20 2.0 05/23/18 12:00 Nasal Cannula 2.0 Room Air 05/23/18 12:00 97.9 60 19 125/54 (77) 99 05/23/18 11:44 63 05/23/18 11:30 40 05/23/18 11:00 60 16 98 Full Face 40 05/23/18 10:30 40 05/23/18 09:30 40 05/23/18 09:09 62 18 99 Full Face 40 05/23/18 08:00 98.4 65 19 109/53 (71) 98 05/23/18 08:00 2.0 05/23/18 08:00 Nasal Cannula 2.0 Room Air 05/23/18 07:57 62 05/23/18 06:43 63 147/58 05/23/18 04:57 61 18 98 Full Face 40 05/23/18 04:00 97.9 63 17 147/58 (87) 98 05/23/18 04:00 40 05/23/18 04:00 Bi-pap 40.0 Room Air 05/23/18 03:39 67 05/23/18 02:55 68 20 99 Full Face 40 05/23/18 00:40 65 18 98 Full Face 40 05/23/18 00:00 Bi-pap 40.0 Room Air 05/23/18 00:00 98.0 60 17 135/57 (83) 99 05/23/18 00:00 68 05/22/18 22:46 63 16 99 Full Face 40 05/22/18 22:36 60 125/62 Intake and Output 05/22/18 05/23/18 19:00 07:00 Intake Total 405 ml 240 ml Output Total 500 ml 450 ml Balance -95 ml -210 ml Intake Oral 240 ml 240 ml IV Total 165 ml Output Urine Total 500 ml 450 ml # Bowel Movements 1 Laboratory Tests 05/23/18 02:20: White Blood Count 8.0, Red Blood Count 3.64L, Hemoglobin 10.2L, Hematocrit 31.6L , Mean Corpuscular Volume 87, Mean Corpuscular Hemoglobin 28.0, Mean Corpuscular Hemoglobin Concent 32.2, Red Cell Distribution Width 14.7, Platelet Count 186, Mean Platelet Volume 6.5, Neutrophils (%) (Auto) 76.9H, Lymphocytes ( %) (Auto) 12.7L, Monocytes (%) (Auto) 6.4, Eosinophils (%) (Auto) 2.5, Basophils (%) (Auto) 1.5, Sodium Level 138, Potassium Level 4.0, Chloride Level 97L, Carbon Dioxide Level 37H, Anion Gap 4L, Blood Urea Nitrogen 14, Creatinine 0.5L, Estimat Glomerular Filtration Rate , Glucose Level 89, Calcium Level 8.6, Vancomycin Level Trough 8.1 05/23/18 04:00: Arterial Blood pH 7.370, Arterial Blood Partial Pressure CO2 66.2*H, Arterial Blood Partial Pressure O2 98.5, Arterial Blood HCO3 38.2H, Arterial Blood Oxygen Saturation 97.0, Arterial Blood Base Excess 10.9*H, Ian Test Positive Height (Feet): 5 Height (Inches): 2.00 Weight (Pounds): 184 General Appearance: no apparent distress, alert Neurologic: oriented x 3, responsive Luiz Morrison MD May 23, 2018 21:39
[2018-05-23] MEDS: Solu-MEDROL 40mg Inj IVP SCH (21:43)
[2018-05-24] VITALS: BP 141/64
[2018-05-24] MEDS: Ipratropium 0.02% Inh Soln 2.5ml UD HHN SCH ×6 (03:14→23:06)
[2018-05-24] MEDS: Vancomycin 1gm/D5W 275ml IVPB SCH ×4 (03:44→19:31)
[2018-05-24 04:00] VITALS: BP 139/65
[2018-05-24] MEDS: dilTIAZem HCl 90mg tab ORAL SCH ×3 (05:46→21:18)
[2018-05-24 08:00] VITALS: BP 131/65
[2018-05-24] MEDS: Solu-MEDROL 40mg Inj IVP SCH ×2 (09:07→21:18)
[2018-05-24] MEDS: Amiodarone 200mg tab ORAL SCH (09:08)
[2018-05-24] MEDS: Eliquis 2.5mg tablet ORAL SCH ×2 (09:08→17:34)
--- NOTE | 2018-05-24 09:22 | Pulmonology Progress Note ---
Assessment/Plan Assessment/Plan Pulmonary Progress Note Patient seen 05/23/2018 Assessment/Plan Problems: (1) Respiratory failure, acute (2) Acute encephalopathy (3) Acute diastolic CHF (congestive heart failure) (4) COPD (chronic obstructive pulmonary disease) (5) Atrial fibrillation with RVR (6) Schizophrenia (7) Major depression Assessment/Plan on BIPAP lasix PRN trial off bipap PRN check electrolytes monitor heart rate. adjust cardiac meds On steroids/HHN Subjective ROS Limited/Unobtainable: No Constitutional: Reports: no symptoms HEENT: Repors: no symptoms Respiratory: Reports: no symptoms Allergies: Coded Allergies: PIPERACILLIN (Unverified Allergy, Unknown, 03/10/18) TAZOBACTAM (Unverified Allergy, Unknown, 03/10/18) Objective Vital Signs Noted Objective still on BIPAP General Appearance: WD/WN HEENT: normocephalic, atraumatic Respiratory/Chest: chest wall non-tender, lungs clear Breasts: no masses Cardiovascular: normal peripheral pulses, normal rate Abdomen: normal bowel sounds, no organomegaly Genitourinary: normal external genitalia Extremities: no cyanosis Microbiology Date/Time Source Procedure Growth Status 05/19/18 21:28 Blood Blood Culture - Preliminary Gram Positive Cocci Resulted 05/19/18 21:18 Blood Blood Culture - Preliminary Gram Positive Cocci Resulted 05/19/18 23:00 Nasal Nares Influenza Types A,B Antigen (ENA) - Final Complete Laboratory Tests 05/20/18 11:05: Troponin I 0.000 05/20/18 12:22: Arterial Blood pH 7.422, Arterial Blood Partial Pressure CO2 60.9*H, Arterial Blood Partial Pressure O2 71.7L, Arterial Blood HCO3 38.8H, Arterial Blood Oxygen Saturation 94.0L, Arterial Blood Base Excess 12.2*H, Ian Test Positive 05/21/18 03:20: Troponin I 0.000, White Blood Count 8.2, Red Blood Count 3.65L, Hemoglobin 10.4L , Hematocrit 31.4L, Mean Corpuscular Volume 86, Mean Corpuscular Hemoglobin 28.5 , Mean Corpuscular Hemoglobin Concent 33.2, Red Cell Distribution Width 14.8, Platelet Count 204, Mean Platelet Volume 6.9, Neutrophils (%) (Auto) 79.0H, Lymphocytes (%) (Auto) 9.3L, Monocytes (%) (Auto) 9.4, Eosinophils (%) (Auto) 1.4, Basophils (%) (Auto) 0.9, Sodium Level 134L, Potassium Level 3.8, Chloride Level 95L, Carbon Dioxide Level 40H, Anion Gap -2L, Blood Urea Nitrogen 14, Creatinine 0.6, Estimat Glomerular Filtration Rate , Glucose Level 92, Calcium Level 9.1, Phosphorus Level 3.0, Total Bilirubin 0.4, Aspartate Amino Transf ( AST/SGOT) 23, Alanine Aminotransferase (ALT/SGPT) 18, Alkaline Phosphatase 55, Pro-B-Type Natriuretic Peptide 3057H, Total Protein 6.4, Albumin 2.7L, Globulin 3.7, Albumin/Globulin Ratio 0.7L 05/21/18 09:52: Arterial Blood pH 7.419, Arterial Blood Partial Pressure CO2 69.4*H, Arterial Blood Partial Pressure O2 99.3, Arterial Blood HCO3 43.9*H, Arterial Blood Oxygen Saturation 96.9, Arterial Blood Base Excess 16.5*H, Ian Test Positive Current Medications Medications (Trade) Dose Ordered Sig/Ibrahima Route PRN Reason Start Time Stop Time Status Last Admin Dose Admin Acetaminophen (Tylenol) 650 mg Q4H PRN ORAL Fever 05/20/18 10:30 06/19/18 10:29 05/20/18 14:53 Albuterol/ Ipratropium (Albuterol/ Ipratropium) 3 ml Q4H PRN HHN Shortness of Breath 05/20/18 10:30 05/25/18 10:29 Amiodarone HCl (Cordarone) 200 mg DAILY ORAL 05/21/18 09:00 06/20/18 08:59 05/21/18 08:43 Apixaban (Eliquis) 5 mg BID ORAL 05/20/18 18:00 06/19/18 17:59 05/21/18 08:43 Dextrose (Dextrose 50%) 25 ml Q30M PRN IV Hypoglycemia 05/20/18 10:30 06/19/18 10:29 Dextrose (Dextrose 50%) 50 ml Q30M PRN IV Hypoglycemia 05/20/18 10:30 06/19/18 10:29 Diltiazem HCl (Cardizem) 90 mg Q8HR ORAL 05/20/18 14:00 06/19/18 13:59 05/21/18 05:55 Mirtazapine (Remeron) 15 mg BEDTIME ORAL 05/20/18 21:00 06/19/18 20:59 05/20/18 20:15 Ondansetron HCl (Zofran) 4 mg Q6H PRN IVP Nausea & Vomiting 05/20/18 10:30 06/19/18 10:29 Polyethylene Glycol (Miralax) 17 gm DAILYPRN PRN ORAL Constipation 05/20/18 10:30 06/19/18 10:29 Risperidone (RisperDAL) 2 mg BEDTIME ORAL 05/20/18 21:00 06/19/18 20:59 05/20/18 20:15 Temazepam (Restoril) 15 mg HSPRN PRN ORAL Insomnia 05/20/18 21:00 05/27/18 20:59 Subjective ROS Limited/Unobtainable: No Allergies: Coded Allergies: PIPERACILLIN (Unverified Allergy, Unknown, 05/21/18) tolerates cephalosporins TAZOBACTAM (Unverified Allergy, Unknown, 03/10/18) Objective Last 24 Hour Vital Signs Date Time Temp Pulse Resp B/P (MAP) Pulse Ox O2 Delivery O2 Flow Rate FiO2 05/24/18 08:50 71 18 95 05/24/18 08:00 97.6 64 20 131/65 (87) 91 05/24/18 08:00 Bi-pap Bi-pap 05/24/18 08:00 40 05/24/18 07:40 62 19 99 Bi-pap 40 05/24/18 07:31 61 20 99 Bi-pap 40 05/24/18 07:30 61 20 99 Full Face 40 05/24/18 05:46 67 145/68 05/24/18 04:45 68 16 99 Full Face 40 05/24/18 04:00 67 05/24/18 04:00 98.2 65 18 139/65 (89) 95 05/24/18 04:00 Bi-pap Bi-pap 05/24/18 04:00 40 05/24/18 03:24 66 19 98 Bi-pap 40 05/24/18 03:14 64 17 97 Full Face 40 05/24/18 03:14 64 17 96 Bi-pap 40 05/24/18 00:48 71 16 94 Full Face 40 05/24/18 00:00 Bi-pap Bi-pap 05/24/18 00:00 40 05/24/18 00:00 98.2 71 20 141/64 (89) 97 05/24/18 00:00 68 05/23/18 23:24 74 21 97 Bi-pap 40 05/23/18 23:14 72 20 97 Bi-pap 40 05/23/18 23:14 40 05/23/18 22:49 72 21 95 Full Face 40 05/23/18 21:47 74 154/64 05/23/18 20:42 63 25 96 Full Face 40 05/23/18 20:12 40 05/23/18 20:12 72 21 97 Bi-pap 40 05/23/18 20:00 97.9 74 18 154/64 (94) 95 05/23/18 20:00 40 05/23/18 20:00 81 05/23/18 20:00 Bi-pap Bi-pap 05/23/18 19:36 76 15 96 Full Face 40 05/23/18 19:08 20 94 32 05/23/18 17:29 18 98 05/23/18 16:00 98.4 70 19 122/68 (86) 96 05/23/18 16:00 Bi-pap Room Air 05/23/18 15:23 73 05/23/18 14:46 68 17 98 Full Face 40 05/23/18 14:00 60 125/54 05/23/18 13:50 40 05/23/18 13:05 64 18 99 Full Face 40 05/23/18 12:20 2.0 05/23/18 12:00 Nasal Cannula 2.0 Room Air 05/23/18 12:00 97.9 60 19 125/54 (77) 99 05/23/18 11:44 63 05/23/18 11:30 40 05/23/18 11:00 60 16 98 Full Face 40 05/23/18 10:30 40 05/23/18 09:30 40 Intake and Output 05/23/18 05/24/18 18:59 06:59 Intake Total 415 ml 515.000 ml Output Total 1000 ml 500 ml Balance -585 ml 15.000 ml Intake Oral 360 ml 240 ml IV Total 55 ml 275.000 ml Output Urine Total 1000 ml 500 ml # Bowel Movements 1 1 Microbiology Date/Time Source Procedure Growth Status 05/21/18 16:15 Blood Blood Culture - Preliminary NO GROWTH AFTER 48 HOURS Resulted 05/21/18 16:00 Blood Blood Culture - Preliminary NO GROWTH AFTER 48 HOURS Resulted Laboratory Tests 05/24/18 04:11: Urine Legionella Antigen [Pending] 05/24/18 07:20: Arterial Blood pH 7.395, Arterial Blood Partial Pressure CO2 59.9*H, Arterial Blood Partial Pressure O2 92.0, Arterial Blood HCO3 35.9H, Arterial Blood Oxygen Saturation 96.5, Arterial Blood Base Excess 9.2*H, Ian Test Positive Current Medications Medications (Trade) Dose Ordered Sig/Ibrahima Route PRN Reason Start Time Stop Time Status Last Admin Dose Admin Acetaminophen (Tylenol) 650 mg Q4H PRN ORAL Fever 05/20/18 10:30 06/19/18 10:29 05/21/18 15:04 Albuterol/ Ipratropium (Albuterol/ Ipratropium) 3 ml Q4H PRN HHN Shortness of Breath 05/20/18 10:30 05/25/18 10:29 Amiodarone HCl (Cordarone) 200 mg DAILY ORAL 05/21/18 09:00 06/20/18 08:59 05/24/18 09:08 Apixaban (Eliquis) 5 mg BID ORAL 05/20/18 18:00 06/19/18 17:59 05/24/18 09:08 Cefepime HCl 1 gm/ Dextrose 55 ml @ 110 mls/hr Q24H IVPB 05/21/18 15:00 05/28/18 14:59 05/23/18 14:11 Dextrose (Dextrose 50%) 25 ml Q30M PRN IV Hypoglycemia 05/20/18 10:30 06/19/18 10:29 Dextrose (Dextrose 50%) 50 ml Q30M PRN IV Hypoglycemia 05/20/18 10:30 06/19/18 10:29 Diltiazem HCl (Cardizem) 90 mg Q8HR ORAL 05/20/18 14:00 06/19/18 13:59 05/24/18 05:46 Guaifenesin (Robitussin) 200 mg Q4H PRN ORAL For Cough 05/22/18 18:15 06/21/18 18:14 05/22/18 18:27 Ipratropium [place] (Atrovent) 500 mcg Q4H HHN 05/23/18 20:00 05/28/18 19:59 05/24/18 07:23 Methylprednisolone Sodium Succinate (Solu-MEDROL) 40 mg EVERY 12 HOURS IVP 05/23/18 21:00 06/22/18 20:59 05/24/18 09:07 Mirtazapine (Remeron) 15 mg BEDTIME ORAL 05/20/18 21:00 06/19/18 20:59 05/23/18 21:47 Ondansetron HCl (Zofran) 4 mg Q6H PRN IVP Nausea & Vomiting 05/20/18 10:30 06/19/18 10:29 Polyethylene Glycol (Miralax) 17 gm DAILYPRN PRN ORAL Constipation 05/20/18 10:30 06/19/18 10:29 Risperidone (RisperDAL) 2 mg BEDTIME ORAL 05/20/18 21:00 06/19/18 20:59 05/23/18 21:46 Temazepam (Restoril) 15 mg HSPRN PRN ORAL Insomnia 05/20/18 21:00 05/27/18 20:59 Vancomycin HCl (Vanco rx to dose) 1 ea DAILY PRN MISC Per rx protocol 05/21/18 13:45 06/20/18 13:44 Vancomycin HCl 1 gm/Dextrose 275 ml @ 183.708 mls/hr Q12HR@0400,1600 IVPB 05/23/18 16:00 05/28/18 15:59 05/24/18 03:44 Josue Todd MD May 24, 2018 09:22
[2018-05-24 12:00] VITALS: BP 133/65
--- NOTE | 2018-05-24 13:08 | Cardiology Progress Note ---
Assessment/Plan Assessment/Plan 1. Permanent atrial fibrillation/flutter. 2. History of congestive heart failure, diastolic in origin. 3. COPD. 4. Reported history of coronary artery disease. 5. History of permanent pacemaker implantation leadless device. 6. Atrial fibrillation previously. 7. History of COPD. 8. Pneumonia. 9. Pleural effusion. 10. History of psychosis and schizophrenia. 11. Bacteremia staph hominis trop neg tele noted afib vr ok cxr noted treat for underlying pneumonia iv abx hhn amiod and eliquis id feel staph is contaminent intermittent bipap Subjective Cardiovascular: Denies: chest pain, lightheadedness Respiratory: Reports: cough; Denies: shortness of breath Gastrointestinal/Abdominal: Denies: abdominal pain Genitourinary: Denies: burning Subjective want cough syrup Objective Last 24 Hour Vital Signs Date Time Temp Pulse Resp B/P (MAP) Pulse Ox O2 Delivery O2 Flow Rate FiO2 05/24/18 12:35 71 16 95 05/24/18 12:00 2.0 05/24/18 12:00 Bi-pap Bi-pap 05/24/18 12:00 98.6 65 19 133/65 (87) 91 05/24/18 11:30 68 16 99 Nasal Cannula 3.0 32 05/24/18 11:20 63 16 99 Nasal Cannula 3.0 32 05/24/18 11:19 68 16 96 05/24/18 08:50 71 18 95 05/24/18 08:00 97.6 64 20 131/65 (87) 91 05/24/18 08:00 Bi-pap Bi-pap 05/24/18 08:00 40 05/24/18 08:00 61 05/24/18 07:40 62 19 99 Bi-pap 40 05/24/18 07:31 61 20 99 Bi-pap 40 05/24/18 07:30 61 20 99 Full Face 40 05/24/18 05:46 67 145/68 05/24/18 04:45 68 16 99 Full Face 40 05/24/18 04:00 67 05/24/18 04:00 98.2 65 18 139/65 (89) 95 05/24/18 04:00 Bi-pap Bi-pap 05/24/18 04:00 40 05/24/18 03:24 66 19 98 Bi-pap 40 05/24/18 03:14 64 17 97 Full Face 40 05/24/18 03:14 64 17 96 Bi-pap 40 05/24/18 00:48 71 16 94 Full Face 40 05/24/18 00:00 Bi-pap Bi-pap 05/24/18 00:00 40 05/24/18 00:00 98.2 71 20 141/64 (89) 97 05/24/18 00:00 68 05/23/18 23:24 74 21 97 Bi-pap 40 05/23/18 23:14 72 20 97 Bi-pap 40 05/23/18 23:14 40 05/23/18 22:49 72 21 95 Full Face 40 05/23/18 21:47 74 154/64 05/23/18 20:42 63 25 96 Full Face 40 05/23/18 20:12 40 05/23/18 20:12 72 21 97 Bi-pap 40 05/23/18 20:00 97.9 74 18 154/64 (94) 95 05/23/18 20:00 40 05/23/18 20:00 81 05/23/18 20:00 Bi-pap Bi-pap 05/23/18 19:36 76 15 96 Full Face 40 05/23/18 19:08 20 94 32 05/23/18 17:29 18 98 05/23/18 16:00 98.4 70 19 122/68 (86) 96 05/23/18 16:00 Bi-pap Room Air 05/23/18 15:23 73 05/23/18 14:46 68 17 98 Full Face 40 05/23/18 14:00 60 125/54 05/23/18 13:50 40 General Appearance: no apparent distress, alert Neck: supple Cardiovascular: irregularly irregular Respiratory/Chest: crackles/rales - left base Abdomen: normal bowel sounds, non tender, soft Extremities: no swelling Intake and Output 05/23/18 05/24/18 18:59 06:59 Intake Total 415 ml 515.000 ml Output Total 1000 ml 500 ml Balance -585 ml 15.000 ml Intake Oral 360 ml 240 ml IV Total 55 ml 275.000 ml Output Urine Total 1000 ml 500 ml # Bowel Movements 1 1 Laboratory Tests Test 05/24/18 04:11 05/24/18 07:20 Urine Legionella Antigen Pending Arterial Blood pH 7.395 (7.350-7.450) Arterial Blood Partial Pressure CO2 59.9 mmHg (35.0-45.0) *H Arterial Blood Partial Pressure O2 92.0 mmHg (75.0-100.0) Arterial Blood HCO3 35.9 mmol/L (22.0-26.0) H Arterial Blood Oxygen Saturation 96.5 % (95-100) Arterial Blood Base Excess 9.2 (-2-2) *H Ian Test Positive Microbiology Date/Time Source Procedure Growth Status 05/21/18 16:15 Blood Blood Culture - Preliminary NO GROWTH AFTER 48 HOURS Resulted 05/21/18 16:00 Blood Blood Culture - Preliminary NO GROWTH AFTER 48 HOURS Resulted Akbar Reno MD May 24, 2018 13:08
[2018-05-24] MEDS: Cefepime HCl 1 GM in D5W 55 ML IVPB SCH (14:03)
--- NOTE | 2018-05-24 14:30 | Internal Med Progress Note ---
Subjective Physician Name Yonathan Mendoza Attending Physician Yonathan Mendoza MD Current Medications Medications (Trade) Dose Ordered Sig/Ibrahima Route PRN Reason Start Time Stop Time Status Last Admin Dose Admin Acetaminophen (Tylenol) 650 mg Q4H PRN ORAL Fever 05/20/18 10:30 06/19/18 10:29 05/21/18 15:04 Albuterol/ Ipratropium (Albuterol/ Ipratropium) 3 ml Q4H PRN HHN Shortness of Breath 05/20/18 10:30 05/25/18 10:29 Amiodarone HCl (Cordarone) 200 mg DAILY ORAL 05/21/18 09:00 06/20/18 08:59 05/24/18 09:08 Apixaban (Eliquis) 5 mg BID ORAL 05/20/18 18:00 06/19/18 17:59 05/24/18 09:08 Cefepime HCl 1 gm/ Dextrose 55 ml @ 110 mls/hr Q24H IVPB 05/21/18 15:00 05/28/18 14:59 05/24/18 14:03 Dextrose (Dextrose 50%) 25 ml Q30M PRN IV Hypoglycemia 05/20/18 10:30 06/19/18 10:29 Dextrose (Dextrose 50%) 50 ml Q30M PRN IV Hypoglycemia 05/20/18 10:30 06/19/18 10:29 Diltiazem HCl (Cardizem) 90 mg Q8HR ORAL 05/20/18 14:00 06/19/18 13:59 05/24/18 14:02 Guaifenesin (Robitussin) 200 mg Q4H PRN ORAL For Cough 05/22/18 18:15 06/21/18 18:14 05/22/18 18:27 Ipratropium [place] (Atrovent) 500 mcg Q4H HHN 05/23/18 20:00 05/28/18 19:59 05/24/18 11:20 Methylprednisolone Sodium Succinate (Solu-MEDROL) 40 mg EVERY 12 HOURS IVP 05/23/18 21:00 06/22/18 20:59 05/24/18 09:07 Mirtazapine (Remeron) 15 mg BEDTIME ORAL 05/20/18 21:00 06/19/18 20:59 05/23/18 21:47 Ondansetron HCl (Zofran) 4 mg Q6H PRN IVP Nausea & Vomiting 05/20/18 10:30 06/19/18 10:29 Polyethylene Glycol (Miralax) 17 gm DAILYPRN PRN ORAL Constipation 05/20/18 10:30 06/19/18 10:29 Risperidone (RisperDAL) 2 mg BEDTIME ORAL 05/20/18 21:00 06/19/18 20:59 05/23/18 21:46 Temazepam (Restoril) 15 mg HSPRN PRN ORAL Insomnia 05/20/18 21:00 05/27/18 20:59 Vancomycin HCl (Vanco rx to dose) 1 ea DAILY PRN MISC Per rx protocol 05/21/18 13:45 06/20/18 13:44 Vancomycin HCl 1 gm/Dextrose 275 ml @ 183.708 mls/hr Q12HR@0400,1600 IVPB 05/23/18 16:00 05/28/18 15:59 05/24/18 03:44 Allergies: Coded Allergies: PIPERACILLIN (Unverified Allergy, Unknown, 05/21/18) tolerates cephalosporins TAZOBACTAM (Unverified Allergy, Unknown, 03/10/18) Subjective awake, alert, responsive, on Full face mask. Objective Last Vital Signs Date Time Temp Pulse Resp B/P (MAP) Pulse Ox O2 Delivery O2 Flow Rate FiO2 05/24/18 14:02 66 133/65 05/24/18 13:10 18 98 Full Face 40 05/24/18 12:00 2.0 05/24/18 12:00 98.6 Laboratory Tests Test 05/24/18 04:11 05/24/18 07:20 Urine Legionella Antigen Pending Arterial Blood pH 7.395 (7.350-7.450) Arterial Blood Partial Pressure CO2 59.9 mmHg (35.0-45.0) *H Arterial Blood Partial Pressure O2 92.0 mmHg (75.0-100.0) Arterial Blood HCO3 35.9 mmol/L (22.0-26.0) H Arterial Blood Oxygen Saturation 96.5 % (95-100) Arterial Blood Base Excess 9.2 (-2-2) *H Ian Test Positive Microbiology Date/Time Source Procedure Growth Status 05/21/18 16:15 Blood Blood Culture - Preliminary NO GROWTH AFTER 48 HOURS Resulted 05/21/18 16:00 Blood Blood Culture - Preliminary NO GROWTH AFTER 48 HOURS Resulted Intake and Output 05/23/18 05/24/18 19:00 07:00 Intake Total 415 ml 515.000 ml Output Total 1000 ml 500 ml Balance -585 ml 15.000 ml Intake Oral 360 ml 240 ml IV Total 55 ml 275.000 ml Output Urine Total 1000 ml 500 ml # Bowel Movements 1 1 Objective General: No acute distress, awake and alert, on Full face mask. HEENT: NCAT, sclera anicteric, PERRL, EOMI. Neck: Supple, no significant jugular venous distention, Lungs: Fair inspiratory effort, no accessory muscle use, decrease air at bases, no Wheeze or Rales. Heart: Irregular rate and rhythm, normal S1/S2, no murmurs Abdomen: soft, nontender, nondistended. Normoactive bowel sounds. Extremities: No Cyanosis , clubbing or edema. Neuro: A&O x 3, Able to move all extremities Skin: warm, no rashes Assessment/Plan Assessment/Plan (1) Paranoid schizophrenia (2) Pneumonia (3) Altered mental status (4) Acute Hypoxemia Respiratory failure (5) History of permanent pacemaker implantation leadless device. (6) Atrial flutter / Fibrillation. (7) Chronic CHF (congestive heart failure) with diastolic dysfunction. (8) COPD (chronic obstructive pulmonary disease) (9) CAD (coronary artery disease) (10) HTN (hypertension) (11) Seizure disorder (12) Sepsis (13) Pleural effusion. (14) Bacteremia staph hominis most likely contamination. Plan: Abx: Vanco IV, Cefepime On Eliquis Full code F/U with labs and cultures, Solumedral 40 mg Bid Yonathan Mendoza MD May 24, 2018 14:30
[2018-05-24 16:00] VITALS: BP 137/65
--- NOTE | 2018-05-24 19:19 | Pulmonology Progress Note ---
Assessment/Plan Assessment/Plan Pulmonary Progress Note Assessment/Plan Problems: (1) Respiratory failure, acute (2) Acute encephalopathy (3) Acute diastolic CHF (congestive heart failure) (4) COPD (chronic obstructive pulmonary disease) (5) Atrial fibrillation with RVR (6) Schizophrenia (7) Major depression Assessment/Plan on BIPAP lasix PRN trial off bipap PRN check electrolytes monitor heart rate. adjust cardiac meds On steroids/HHN Subjective ROS Limited/Unobtainable: No Constitutional: Reports: no symptoms HEENT: Repors: no symptoms Respiratory: Reports: no symptoms Allergies: Coded Allergies: PIPERACILLIN (Unverified Allergy, Unknown, 03/10/18) TAZOBACTAM (Unverified Allergy, Unknown, 03/10/18) Objective Vital Signs Noted Objective still on BIPAP General Appearance: WD/WN HEENT: normocephalic, atraumatic Respiratory/Chest: chest wall non-tender, lungs clear Breasts: no masses Cardiovascular: normal peripheral pulses, normal rate Abdomen: normal bowel sounds, no organomegaly Genitourinary: normal external genitalia Extremities: no cyanosis Microbiology Date/Time Source Procedure Growth Status 05/19/18 21:28 Blood Blood Culture - Preliminary Gram Positive Cocci Resulted 05/19/18 21:18 Blood Blood Culture - Preliminary Gram Positive Cocci Resulted 05/19/18 23:00 Nasal Nares Influenza Types A,B Antigen (ENA) - Final Complete Laboratory Tests 05/20/18 11:05: Troponin I 0.000 05/20/18 12:22: Arterial Blood pH 7.422, Arterial Blood Partial Pressure CO2 60.9*H, Arterial Blood Partial Pressure O2 71.7L, Arterial Blood HCO3 38.8H, Arterial Blood Oxygen Saturation 94.0L, Arterial Blood Base Excess 12.2*H, Ian Test Positive 05/21/18 03:20: Troponin I 0.000, White Blood Count 8.2, Red Blood Count 3.65L, Hemoglobin 10.4L , Hematocrit 31.4L, Mean Corpuscular Volume 86, Mean Corpuscular Hemoglobin 28.5 , Mean Corpuscular Hemoglobin Concent 33.2, Red Cell Distribution Width 14.8, Platelet Count 204, Mean Platelet Volume 6.9, Neutrophils (%) (Auto) 79.0H, Lymphocytes (%) (Auto) 9.3L, Monocytes (%) (Auto) 9.4, Eosinophils (%) (Auto) 1.4, Basophils (%) (Auto) 0.9, Sodium Level 134L, Potassium Level 3.8, Chloride Level 95L, Carbon Dioxide Level 40H, Anion Gap -2L, Blood Urea Nitrogen 14, Creatinine 0.6, Estimat Glomerular Filtration Rate , Glucose Level 92, Calcium Level 9.1, Phosphorus Level 3.0, Total Bilirubin 0.4, Aspartate Amino Transf ( AST/SGOT) 23, Alanine Aminotransferase (ALT/SGPT) 18, Alkaline Phosphatase 55, Pro-B-Type Natriuretic Peptide 3057H, Total Protein 6.4, Albumin 2.7L, Globulin 3.7, Albumin/Globulin Ratio 0.7L 05/21/18 09:52: Arterial Blood pH 7.419, Arterial Blood Partial Pressure CO2 69.4*H, Arterial Blood Partial Pressure O2 99.3, Arterial Blood HCO3 43.9*H, Arterial Blood Oxygen Saturation 96.9, Arterial Blood Base Excess 16.5*H, Ian Test Positive Current Medications Medications (Trade) Dose Ordered Sig/Ibrahima Route PRN Reason Start Time Stop Time Status Last Admin Dose Admin Acetaminophen (Tylenol) 650 mg Q4H PRN ORAL Fever 05/20/18 10:30 06/19/18 10:29 05/20/18 14:53 Albuterol/ Ipratropium (Albuterol/ Ipratropium) 3 ml Q4H PRN HHN Shortness of Breath 05/20/18 10:30 05/25/18 10:29 Amiodarone HCl (Cordarone) 200 mg DAILY ORAL 05/21/18 09:00 06/20/18 08:59 05/21/18 08:43 Apixaban (Eliquis) 5 mg BID ORAL 05/20/18 18:00 06/19/18 17:59 05/21/18 08:43 Dextrose (Dextrose 50%) 25 ml Q30M PRN IV Hypoglycemia 05/20/18 10:30 06/19/18 10:29 Dextrose (Dextrose 50%) 50 ml Q30M PRN IV Hypoglycemia 05/20/18 10:30 06/19/18 10:29 Diltiazem HCl (Cardizem) 90 mg Q8HR ORAL 05/20/18 14:00 06/19/18 13:59 05/21/18 05:55 Mirtazapine (Remeron) 15 mg BEDTIME ORAL 05/20/18 21:00 06/19/18 20:59 05/20/18 20:15 Ondansetron HCl (Zofran) 4 mg Q6H PRN IVP Nausea & Vomiting 05/20/18 10:30 06/19/18 10:29 Polyethylene Glycol (Miralax) 17 gm DAILYPRN PRN ORAL Constipation 05/20/18 10:30 06/19/18 10:29 Risperidone (RisperDAL) 2 mg BEDTIME ORAL 05/20/18 21:00 06/19/18 20:59 05/20/18 20:15 Temazepam (Restoril) 15 mg HSPRN PRN ORAL Insomnia 05/20/18 21:00 05/27/18 20:59 Subjective ROS Limited/Unobtainable: No Allergies: Coded Allergies: PIPERACILLIN (Unverified Allergy, Unknown, 05/21/18) tolerates cephalosporins TAZOBACTAM (Unverified Allergy, Unknown, 03/10/18) Objective Last 24 Hour Vital Signs Date Time Temp Pulse Resp B/P (MAP) Pulse Ox O2 Delivery O2 Flow Rate FiO2 05/24/18 17:00 65 05/24/18 16:30 65 18 95 05/24/18 16:00 Bi-pap Bi-pap 05/24/18 16:00 40 05/24/18 16:00 98.4 67 20 137/65 (89) 96 05/24/18 14:48 72 16 99 Nasal Cannula 3.0 32 05/24/18 14:38 71 18 95 Nasal Cannula 3.0 32 05/24/18 14:02 66 133/65 05/24/18 14:00 71 16 96 05/24/18 13:10 66 18 98 Full Face 40 05/24/18 12:35 71 16 95 05/24/18 12:00 2.0 05/24/18 12:00 Bi-pap Bi-pap 05/24/18 12:00 98.6 65 19 133/65 (87) 91 05/24/18 11:53 62 05/24/18 11:30 68 16 99 Nasal Cannula 3.0 32 05/24/18 11:20 63 16 99 Nasal Cannula 3.0 32 05/24/18 11:19 68 16 96 05/24/18 08:50 71 18 95 05/24/18 08:01 61 05/24/18 08:00 97.6 64 20 131/65 (87) 91 05/24/18 08:00 Bi-pap Bi-pap 05/24/18 08:00 40 05/24/18 07:40 62 19 99 Bi-pap 40 05/24/18 07:31 61 20 99 Bi-pap 40 05/24/18 07:30 61 20 99 Full Face 40 05/24/18 05:46 67 145/68 05/24/18 04:45 68 16 99 Full Face 40 05/24/18 04:00 67 05/24/18 04:00 98.2 65 18 139/65 (89) 95 05/24/18 04:00 Bi-pap Bi-pap 05/24/18 04:00 40 05/24/18 03:24 66 19 98 Bi-pap 40 05/24/18 03:14 64 17 97 Full Face 40 05/24/18 03:14 64 17 96 Bi-pap 40 05/24/18 00:48 71 16 94 Full Face 40 05/24/18 00:00 Bi-pap Bi-pap 05/24/18 00:00 40 05/24/18 00:00 98.2 71 20 141/64 (89) 97 05/24/18 00:00 68 05/23/18 23:24 74 21 97 Bi-pap 40 05/23/18 23:14 72 20 97 Bi-pap 40 05/23/18 23:14 40 05/23/18 22:49 72 21 95 Full Face 40 05/23/18 21:47 74 154/64 05/23/18 20:42 63 25 96 Full Face 40 05/23/18 20:12 40 05/23/18 20:12 72 21 97 Bi-pap 40 05/23/18 20:00 97.9 74 18 154/64 (94) 95 05/23/18 20:00 40 05/23/18 20:00 81 05/23/18 20:00 Bi-pap Bi-pap 05/23/18 19:36 76 15 96 Full Face 40 Intake and Output 05/23/18 05/24/18 19:00 07:00 Intake Total 415 ml 515.000 ml Output Total 1000 ml 500 ml Balance -585 ml 15.000 ml Intake Oral 360 ml 240 ml IV Total 55 ml 275.000 ml Output Urine Total 1000 ml 500 ml # Bowel Movements 1 1 Laboratory Tests 05/24/18 04:11: Urine Legionella Antigen [Pending] 05/24/18 07:20: Arterial Blood pH 7.395, Arterial Blood Partial Pressure CO2 59.9*H, Arterial Blood Partial Pressure O2 92.0, Arterial Blood HCO3 35.9H, Arterial Blood Oxygen Saturation 96.5, Arterial Blood Base Excess 9.2*H, Ian Test Positive 05/24/18 15:45: Vancomycin Level Trough 21.0H Current Medications Medications (Trade) Dose Ordered Sig/Ibrahima Route PRN Reason Start Time Stop Time Status Last Admin Dose Admin Acetaminophen (Tylenol) 650 mg Q4H PRN ORAL Fever 05/20/18 10:30 06/19/18 10:29 05/24/18 18:39 Albuterol/ Ipratropium (Albuterol/ Ipratropium) 3 ml Q4H PRN HHN Shortness of Breath 05/20/18 10:30 05/25/18 10:29 Amiodarone HCl (Cordarone) 200 mg DAILY ORAL 05/21/18 09:00 06/20/18 08:59 05/24/18 09:08 Apixaban (Eliquis) 5 mg BID ORAL 05/20/18 18:00 06/19/18 17:59 05/24/18 17:34 Cefepime HCl 1 gm/ Dextrose 55 ml @ 110 mls/hr Q24H IVPB 05/21/18 15:00 05/28/18 14:59 05/24/18 14:03 Dextrose (Dextrose 50%) 25 ml Q30M PRN IV Hypoglycemia 05/20/18 10:30 06/19/18 10:29 Dextrose (Dextrose 50%) 50 ml Q30M PRN IV Hypoglycemia 05/20/18 10:30 06/19/18 10:29 Diltiazem HCl (Cardizem) 90 mg Q8HR ORAL 05/20/18 14:00 06/19/18 13:59 05/24/18 14:02 Guaifenesin (Robitussin) 200 mg Q4H PRN ORAL For Cough 05/22/18 18:15 06/21/18 18:14 05/22/18 18:27 Ipratropium [place] (Atrovent) 500 mcg Q4H HHN 05/23/18 20:00 05/28/18 19:59 05/24/18 14:38 Methylprednisolone Sodium Succinate (Solu-MEDROL) 40 mg EVERY 12 HOURS IVP 05/23/18 21:00 06/22/18 20:59 05/24/18 09:07 Mirtazapine (Remeron) 15 mg BEDTIME ORAL 05/20/18 21:00 06/19/18 20:59 05/23/18 21:47 Ondansetron HCl (Zofran) 4 mg Q6H PRN IVP Nausea & Vomiting 05/20/18 10:30 06/19/18 10:29 Polyethylene Glycol (Miralax) 17 gm DAILYPRN PRN ORAL Constipation 05/20/18 10:30 06/19/18 10:29 Risperidone (RisperDAL) 2 mg BEDTIME ORAL 05/20/18 21:00 06/19/18 20:59 05/23/18 21:46 Temazepam (Restoril) 15 mg HSPRN PRN ORAL Insomnia 05/20/18 21:00 05/27/18 20:59 Vancomycin HCl (Vanco rx to dose) 1 ea DAILY PRN MISC Per rx protocol 05/21/18 13:45 06/20/18 13:44 Vancomycin/Sodium Chloride 250 ml @ 166.667 mls/hr Q12H IVPB 05/25/18 04:00 05/30/18 03:59 Josue Todd MD May 24, 2018 19:19
[2018-05-24 20:00] VITALS: BP 146/64
--- NOTE | 2018-05-24 22:46 | General Progress Note ---
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 (2) Major depression ICD Codes: F32.9 - Major depressive disorder, single episode, unspecified SNOMED: 34019374, [id number] (3) Schizophrenia ICD Codes: F20.9 - Schizophrenia, unspecified SNOMED: 44571714 Assessment/Plan Risperdal 2mg qhs ativan prn raise the head Subjective Neurologic/Psychiatric: Reports: anxiety, depressed Allergies: Coded Allergies: PIPERACILLIN (Unverified Allergy, Unknown, 05/21/18) tolerates cephalosporins TAZOBACTAM (Unverified Allergy, Unknown, 03/10/18) Objective Last 24 Hour Vital Signs Date Time Temp Pulse Resp B/P (MAP) Pulse Ox O2 Delivery O2 Flow Rate FiO2 05/24/18 21:18 72 146/64 05/24/18 20:00 98.0 72 20 146/64 (91) 97 05/24/18 19:46 72 18 99 Nasal Cannula 3.0 32 05/24/18 19:36 97 Nasal Cannula 3.0 32 05/24/18 19:36 Nasal Cannula 3.0 32 05/24/18 19:36 75 18 97 Nasal Cannula 3.0 32 05/24/18 19:03 98.4 05/24/18 17:00 65 05/24/18 16:30 65 18 95 05/24/18 16:00 Bi-pap Bi-pap 05/24/18 16:00 40 05/24/18 16:00 98.4 67 20 137/65 (89) 96 05/24/18 14:48 72 16 99 Nasal Cannula 3.0 32 05/24/18 14:38 71 18 95 Nasal Cannula 3.0 32 05/24/18 14:02 66 133/65 05/24/18 14:00 71 16 96 05/24/18 13:10 66 18 98 Full Face 40 05/24/18 12:35 71 16 95 05/24/18 12:00 2.0 05/24/18 12:00 Bi-pap Bi-pap 05/24/18 12:00 98.6 65 19 133/65 (87) 91 05/24/18 11:53 62 05/24/18 11:30 68 16 99 Nasal Cannula 3.0 32 05/24/18 11:20 63 16 99 Nasal Cannula 3.0 32 05/24/18 11:19 68 16 96 05/24/18 08:50 71 18 95 05/24/18 08:01 61 05/24/18 08:00 97.6 64 20 131/65 (87) 91 05/24/18 08:00 Bi-pap Bi-pap 05/24/18 08:00 40 05/24/18 07:40 62 19 99 Bi-pap 40 05/24/18 07:31 61 20 99 Bi-pap 40 05/24/18 07:30 61 20 99 Full Face 40 05/24/18 05:46 67 145/68 05/24/18 04:45 68 16 99 Full Face 40 05/24/18 04:00 67 05/24/18 04:00 98.2 65 18 139/65 (89) 95 05/24/18 04:00 Bi-pap Bi-pap 05/24/18 04:00 40 05/24/18 03:24 66 19 98 Bi-pap 40 05/24/18 03:14 64 17 97 Full Face 40 05/24/18 03:14 64 17 96 Bi-pap 40 05/24/18 00:48 71 16 94 Full Face 40 05/24/18 00:00 Bi-pap Bi-pap 05/24/18 00:00 40 05/24/18 00:00 98.2 71 20 141/64 (89) 97 05/24/18 00:00 68 05/23/18 23:24 74 21 97 Bi-pap 40 05/23/18 23:14 72 20 97 Bi-pap 40 05/23/18 23:14 40 05/23/18 22:49 72 21 95 Full Face 40 Intake and Output 05/23/18 05/24/18 19:00 07:00 Intake Total 415 ml 515.000 ml Output Total 1000 ml 500 ml Balance -585 ml 15.000 ml Intake Oral 360 ml 240 ml IV Total 55 ml 275.000 ml Output Urine Total 1000 ml 500 ml # Bowel Movements 1 1 Laboratory Tests 05/24/18 04:11: Urine Legionella Antigen [Pending] 05/24/18 07:20: Arterial Blood pH 7.395, Arterial Blood Partial Pressure CO2 59.9*H, Arterial Blood Partial Pressure O2 92.0, Arterial Blood HCO3 35.9H, Arterial Blood Oxygen Saturation 96.5, Arterial Blood Base Excess 9.2*H, Ian Test Positive 05/24/18 15:45: Vancomycin Level Trough 21.0H Height (Feet): 5 Height (Inches): 2.00 Weight (Pounds): 184 General Appearance: alert, moderate distress Neurologic: oriented x 3, responsive Luzi Morrison MD May 24, 2018 22:45
[2018-05-25] VITALS: BP 147/71
[2018-05-25] MEDS: Ipratropium 0.02% Inh Soln 2.5ml UD HHN SCH ×6 (03:36→22:36)
[2018-05-25 04:00] VITALS: BP 146/58
[2018-05-25] MEDS: Vancomycin 750mg/NS 250ml IVPB SCH ×2 (04:34→15:17)
[2018-05-25] MEDS: dilTIAZem HCl 90mg tab ORAL SCH ×3 (06:00→21:01)
[2018-05-25 08:00] VITALS: BP 152/65
[2018-05-25] MEDS: Eliquis 2.5mg tablet ORAL SCH ×2 (08:58→17:43)
[2018-05-25] MEDS: Amiodarone 200mg tab ORAL SCH (08:58)
[2018-05-25] MEDS: Solu-MEDROL 40mg Inj IVP SCH ×2 (08:58→21:01)
[2018-05-25] MEDS ORDERED: NS 275ml ONE (10:43)
[2018-05-25] MEDS ORDERED: Tubing IV Secondary IV ONE (10:43)
--- NOTE | 2018-05-25 11:40 | Infectious Diseases Prog Note ---
Assessment/Plan Assessment/Plan Assessment: Acute respiratory failure, on BIpap- due to combination of PNA and CHF -05/22 CXR: Hazy right basilar opacity, left lateral basilar opacity are all unchanged. Borderline cardiomegaly persists. Monitoring device again overlies the left hemidiaphragm -CXR: Right basilar opacity, likely combination of pleural fluid and infiltrate, increased from 04/16/2018. Large left pleural effusion, may be slightly increased from 04/16/2018. Generalized interstitial prominence, may be combination of interstitial edema and chronic interstitial changes. -influenza sc neg -sp cx p Gram positive bacteremia, high grade- suspect contaminants -05/19 Bcx 3/4 S. hominis sp hominis; 05/21 Bc xNTD -2d eCho: no vegetations. Focal aortic valve sclerosis with reduced cusp excursion. Thickened mitral valve leaflets with reduced excursion. 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, Legionella 04/2018, s/p Rx SP VDRF, 04/10 Sp extubated Legionella Ur Ag: Neg, Legionella IgM + / IgG - Scx: No sig growth Flu screen negative Atrial flutter dCHF COPD CAD s/p stents Hypertension Seizure disorder Schizophrenia Depression History of intraventricular pacemaker implantation GERD CVA/TIA b/l hip replacement hx of L DVT history of alcohol abuse hx of recurrent admissions hx of high grade CONS bacteremia (JIMY neg 09/2017) SNF resident Plan: -Cont empiric IV Vancomycin and Cefepime #5/5-7 for PNA pending cultures -05/19 SP Levaquin x1 -f/u Bcx x2, sp cx, legionella ag urine -f/u cx -Monitor CBC/CMP, temperatures -aspiration precautions -CXR 2 vam Thank you for this consultation. Will continue to follow along with you. Discussed with RN. Subjective Allergies: Coded Allergies: PIPERACILLIN (Unverified Allergy, Unknown, 05/21/18) tolerates cephalosporins TAZOBACTAM (Unverified Allergy, Unknown, 03/10/18) Subjective afebrile repeat bCX ntd SP CX P Objective Vital Signs Last 24 Hour Vital Signs Date Time Temp Pulse Resp B/P (MAP) Pulse Ox O2 Delivery O2 Flow Rate FiO2 05/25/18 10:56 72 18 94 Nasal Cannula 3.0 32 05/25/18 08:00 69 05/25/18 08:00 Bi-pap Bi-pap 05/25/18 08:00 97.8 73 19 152/65 (94) 96 05/25/18 08:00 30 05/25/18 07:28 61 18 98 Nasal Cannula 32 05/25/18 07:18 60 18 96 Nasal Cannula 32 05/25/18 07:15 Nasal Cannula 3.0 32 05/25/18 07:15 96 Nasal Cannula 3.0 32 05/25/18 06:00 60 146/73 05/25/18 05:18 62 17 98 Full Face 30 05/25/18 04:00 97.5 60 17 146/58 (87) 96 05/25/18 04:00 60 05/25/18 04:00 30 05/25/18 04:00 Bi-pap Bi-pap 05/25/18 03:46 60 19 98 Bi-pap 30 05/25/18 03:36 60 18 98 Bi-pap 30 05/25/18 03:36 60 18 97 Full Face 30 05/25/18 01:04 70 18 97 Full Face 30 05/25/18 00:00 70 05/25/18 00:00 97.8 68 16 147/71 (96) 96 05/25/18 00:00 Bi-pap Bi-pap 05/25/18 00:00 30 05/24/18 23:16 71 19 97 Full Face 30 05/24/18 23:15 71 18 100 Bi-pap 30 05/24/18 23:05 67 18 Nasal Cannula 3.0 32 05/24/18 23:05 67 18 95 Nasal Cannula 3.0 32 05/24/18 21:18 72 146/64 18 20:00 40 05/24/18 20:00 70 05/24/18 20:00 98.0 72 20 146/64 (91) 97 05/24/18 20:00 Bi-pap Bi-pap 05/24/18 19:46 72 18 99 Nasal Cannula 3.0 32 05/24/18 19:36 97 Nasal Cannula 3.0 32 05/24/18 19:36 Nasal Cannula 3.0 32 05/24/18 19:36 75 18 97 Nasal Cannula 3.0 32 05/24/18 19:03 98.4 05/24/18 17:00 65 05/24/18 16:30 65 18 95 05/24/18 16:00 Bi-pap Bi-pap 05/24/18 16:00 40 05/24/18 16:00 98.4 67 20 137/65 (89) 96 05/24/18 14:48 72 16 99 Nasal Cannula 3.0 32 05/24/18 14:38 71 18 95 Nasal Cannula 3.0 32 05/24/18 14:02 66 133/65 05/24/18 14:00 71 16 96 05/24/18 13:10 66 18 98 Full Face 40 05/24/18 12:35 71 16 95 05/24/18 12:00 2.0 05/24/18 12:00 Bi-pap Bi-pap 05/24/18 12:00 98.6 65 19 133/65 (87) 91 05/24/18 11:53 62 Height (Feet): 5 Height (Inches): 2.00 Weight (Pounds): 184 Objective GENERAL: An elderly female, on BiPAP therapy. NECK: Supple. No jugular venous distention. LUNGS: Crackles heard slightly. Breath sounds otherwise decreased bilaterally. CARDIAC: Irregularly irregular. Not tachycardic. No heaves or thrills noted. ABDOMEN: Soft and nontender. Positive bowel sounds. EXTREMITIES: There is no clubbing, cyanosis, or edema. NEUROLOGICAL: She is awake, alert, responsive, and moves all four extremities Laboratory Tests Test 05/24/18 15:45 Vancomycin Level Trough 21.0 ug/mL (5.0-12.0) H Current Medications Medications (Trade) Dose Ordered Sig/Ibrahima Route PRN Reason Start Time Stop Time Status Last Admin Dose Admin Acetaminophen (Tylenol) 650 mg Q4H PRN ORAL Fever 05/20/18 10:30 06/19/18 10:29 05/24/18 18:39 Amiodarone HCl (Cordarone) 200 mg DAILY ORAL 05/21/18 09:00 06/20/18 08:59 05/25/18 08:58 Apixaban (Eliquis) 5 mg BID ORAL 05/20/18 18:00 06/19/18 17:59 05/25/18 08:58 Cefepime HCl 1 gm/ Dextrose 55 ml @ 110 mls/hr Q24H IVPB 05/21/18 15:00 05/28/18 14:59 05/24/18 14:03 Dextrose (Dextrose 50%) 25 ml Q30M PRN IV Hypoglycemia 05/20/18 10:30 06/19/18 10:29 Dextrose (Dextrose 50%) 50 ml Q30M PRN IV Hypoglycemia 05/20/18 10:30 06/19/18 10:29 Diltiazem HCl (Cardizem) 90 mg Q8HR ORAL 05/20/18 14:00 06/19/18 13:59 05/24/18 21:18 Guaifenesin (Robitussin) 200 mg Q4H PRN ORAL For Cough 05/22/18 18:15 06/21/18 18:14 05/22/18 18:27 Ipratropium [place] (Atrovent) 500 mcg Q4H HHN 05/23/18 20:00 05/28/18 19:59 05/25/18 10:58 Methylprednisolone Sodium Succinate (Solu-MEDROL) 40 mg EVERY 12 HOURS IVP 05/23/18 21:00 06/22/18 20:59 05/25/18 08:58 Mirtazapine (Remeron) 15 mg BEDTIME ORAL 05/20/18 21:00 06/19/18 20:59 05/24/18 21:19 Ondansetron HCl (Zofran) 4 mg Q6H PRN IVP Nausea & Vomiting 05/20/18 10:30 06/19/18 10:29 Polyethylene Glycol (Miralax) 17 gm DAILYPRN PRN ORAL Constipation 05/20/18 10:30 06/19/18 10:29 Risperidone (RisperDAL) 2 mg BEDTIME ORAL 05/20/18 21:00 06/19/18 20:59 05/24/18 21:19 Temazepam (Restoril) 15 mg HSPRN PRN ORAL Insomnia 05/20/18 21:00 05/27/18 20:59 05/24/18 21:19 Vancomycin HCl (Vanco rx to dose) 1 ea DAILY PRN MISC Per rx protocol 05/21/18 13:45 06/20/18 13:44 Vancomycin/Sodium Chloride 250 ml @ 166.667 mls/hr Q12H IVPB 05/25/18 04:00 05/30/18 03:59 05/25/18 04:34 Danica Nayak M.D. May 25, 2018 11:40
[2018-05-25 12:00] VITALS: BP 148/66
--- NOTE | 2018-05-25 12:15 | Cardiology Progress Note ---
Assessment/Plan Assessment/Plan 1. Permanent atrial fibrillation/flutter. 2. History of congestive heart failure, diastolic in origin. 3. COPD. 4. Reported history of coronary artery disease. 5. History of permanent pacemaker implantation leadless device. 6. Atrial fibrillation previously. 7. History of COPD. 8. Pneumonia. 9. Pleural effusion. 10. History of psychosis and schizophrenia. 11. Bacteremia staph hominis trop neg tele noted afib vr ok treat for underlying pneumonia iv abx hhn amiod and eliquis id feel staph is contaminent intermittent bipap Subjective Cardiovascular: Denies: chest pain, lightheadedness, palpitations Respiratory: Denies: shortness of breath Gastrointestinal/Abdominal: Denies: abdominal pain Genitourinary: Denies: no symptoms, burning, discharge, frequency, flank pain, hematuria, incontinence, pain, urgency, other Subjective want to know her dischareg date Objective Last 24 Hour Vital Signs Date Time Temp Pulse Resp B/P (MAP) Pulse Ox O2 Delivery O2 Flow Rate FiO2 05/25/18 12:00 97.8 73 21 148/66 (93) 97 05/25/18 12:00 77 05/25/18 12:00 30 05/25/18 12:00 Bi-pap Bi-pap 05/25/18 10:56 72 18 94 Nasal Cannula 3.0 32 05/25/18 08:00 69 05/25/18 08:00 Bi-pap Bi-pap 05/25/18 08:00 97.8 73 19 152/65 (94) 96 05/25/18 08:00 30 05/25/18 07:28 61 18 98 Nasal Cannula 32 05/25/18 07:18 60 18 96 Nasal Cannula 32 05/25/18 07:15 Nasal Cannula 3.0 32 05/25/18 07:15 96 Nasal Cannula 3.0 32 05/25/18 06:00 60 146/73 05/25/18 05:18 62 17 98 Full Face 30 05/25/18 04:00 97.5 60 17 146/58 (87) 96 05/25/18 04:00 60 05/25/18 04:00 30 05/25/18 04:00 Bi-pap Bi-pap 05/25/18 03:46 60 19 98 Bi-pap 30 05/25/18 03:36 60 18 98 Bi-pap 30 05/25/18 03:36 60 18 97 Full Face 30 05/25/18 01:04 70 18 97 Full Face 30 05/25/18 00:00 70 05/25/18 00:00 97.8 68 16 147/71 (96) 96 05/25/18 00:00 Bi-pap Bi-pap 05/25/18 00:00 30 05/24/18 23:16 71 19 97 Full Face 30 05/24/18 23:15 71 18 100 Bi-pap 30 05/24/18 23:05 67 18 Nasal Cannula 3.0 32 05/24/18 23:05 67 18 95 Nasal Cannula 3.0 32 05/24/18 21:18 72 146/64 05/24/18 20:00 40 05/24/18 20:00 70 05/24/18 20:00 98.0 72 20 146/64 (91) 97 05/24/18 20:00 Bi-pap Bi-pap 05/24/18 19:46 72 18 99 Nasal Cannula 3.0 32 05/24/18 19:36 97 Nasal Cannula 3.0 32 05/24/18 19:36 Nasal Cannula 3.0 32 05/24/18 19:36 75 18 97 Nasal Cannula 3.0 32 05/24/18 19:03 98.4 05/24/18 17:00 65 05/24/18 16:30 65 18 95 05/24/18 16:00 Bi-pap Bi-pap 05/24/18 16:00 40 05/24/18 16:00 98.4 67 20 137/65 (89) 96 05/24/18 14:48 72 16 99 Nasal Cannula 3.0 32 05/24/18 14:38 71 18 95 Nasal Cannula 3.0 32 05/24/18 14:02 66 133/65 05/24/18 14:00 71 16 96 05/24/18 13:10 66 18 98 Full Face 40 05/24/18 12:35 71 16 95 Intake and Output 05/24/18 05/25/18 18:59 06:59 Intake Total 535 ml 438.667 ml Balance 535 ml 438.667 ml Intake Oral 480 ml 200 ml IV Total 55 ml 238.667 ml # Voids 1 2 # Bowel Movements 2 Laboratory Tests Test 05/24/18 15:45 Vancomycin Level Trough 21.0 ug/mL (5.0-12.0) H Akbar Reno MD May 25, 2018 12:15
[2018-05-25] MEDS: Cefepime HCl 1 GM in D5W 55 ML IVPB SCH (15:17)
--- NOTE | 2018-05-25 15:23 | Pulmonology Progress Note ---
Assessment/Plan Assessment/Plan Pulmonary Progress Note Assessment/Plan Problems: (1) Respiratory failure, acute (2) Acute encephalopathy (3) Acute diastolic CHF (congestive heart failure) (4) COPD (chronic obstructive pulmonary disease) (5) Atrial fibrillation with RVR (6) Schizophrenia (7) Major depression Assessment/Plan on BIPAP lasix PRN trial off bipap PRN check electrolytes monitor heart rate. adjust cardiac meds On steroids/HHN Subjective ROS Limited/Unobtainable: No Constitutional: Reports: no symptoms HEENT: Repors: no symptoms Respiratory: Reports: no symptoms Allergies: Coded Allergies: PIPERACILLIN (Unverified Allergy, Unknown, 03/10/18) TAZOBACTAM (Unverified Allergy, Unknown, 03/10/18) Objective Vital Signs Noted Objective still on BIPAP General Appearance: WD/WN HEENT: normocephalic, atraumatic Respiratory/Chest: chest wall non-tender, lungs clear Breasts: no masses Cardiovascular: normal peripheral pulses, normal rate Abdomen: normal bowel sounds, no organomegaly Genitourinary: normal external genitalia Extremities: no cyanosis Microbiology Date/Time Source Procedure Growth Status 05/19/18 21:28 Blood Blood Culture - Preliminary Gram Positive Cocci Resulted 05/19/18 21:18 Blood Blood Culture - Preliminary Gram Positive Cocci Resulted 05/19/18 23:00 Nasal Nares Influenza Types A,B Antigen (ENA) - Final Complete Laboratory Tests 05/20/18 11:05: Troponin I 0.000 05/20/18 12:22: Arterial Blood pH 7.422, Arterial Blood Partial Pressure CO2 60.9*H, Arterial Blood Partial Pressure O2 71.7L, Arterial Blood HCO3 38.8H, Arterial Blood Oxygen Saturation 94.0L, Arterial Blood Base Excess 12.2*H, Ian Test Positive 05/21/18 03:20: Troponin I 0.000, White Blood Count 8.2, Red Blood Count 3.65L, Hemoglobin 10.4L , Hematocrit 31.4L, Mean Corpuscular Volume 86, Mean Corpuscular Hemoglobin 28.5 , Mean Corpuscular Hemoglobin Concent 33.2, Red Cell Distribution Width 14.8, Platelet Count 204, Mean Platelet Volume 6.9, Neutrophils (%) (Auto) 79.0H, Lymphocytes (%) (Auto) 9.3L, Monocytes (%) (Auto) 9.4, Eosinophils (%) (Auto) 1.4, Basophils (%) (Auto) 0.9, Sodium Level 134L, Potassium Level 3.8, Chloride Level 95L, Carbon Dioxide Level 40H, Anion Gap -2L, Blood Urea Nitrogen 14, Creatinine 0.6, Estimat Glomerular Filtration Rate , Glucose Level 92, Calcium Level 9.1, Phosphorus Level 3.0, Total Bilirubin 0.4, Aspartate Amino Transf ( AST/SGOT) 23, Alanine Aminotransferase (ALT/SGPT) 18, Alkaline Phosphatase 55, Pro-B-Type Natriuretic Peptide 3057H, Total Protein 6.4, Albumin 2.7L, Globulin 3.7, Albumin/Globulin Ratio 0.7L 05/21/18 09:52: Arterial Blood pH 7.419, Arterial Blood Partial Pressure CO2 69.4*H, Arterial Blood Partial Pressure O2 99.3, Arterial Blood HCO3 43.9*H, Arterial Blood Oxygen Saturation 96.9, Arterial Blood Base Excess 16.5*H, Ian Test Positive Current Medications Medications (Trade) Dose Ordered Sig/Ibrahima Route PRN Reason Start Time Stop Time Status Last Admin Dose Admin Acetaminophen (Tylenol) 650 mg Q4H PRN ORAL Fever 05/20/18 10:30 06/19/18 10:29 05/20/18 14:53 Albuterol/ Ipratropium (Albuterol/ Ipratropium) 3 ml Q4H PRN HHN Shortness of Breath 05/20/18 10:30 05/25/18 10:29 Amiodarone HCl (Cordarone) 200 mg DAILY ORAL 05/21/18 09:00 06/20/18 08:59 05/21/18 08:43 Apixaban (Eliquis) 5 mg BID ORAL 05/20/18 18:00 06/19/18 17:59 05/21/18 08:43 Dextrose (Dextrose 50%) 25 ml Q30M PRN IV Hypoglycemia 05/20/18 10:30 06/19/18 10:29 Dextrose (Dextrose 50%) 50 ml Q30M PRN IV Hypoglycemia 05/20/18 10:30 06/19/18 10:29 Diltiazem HCl (Cardizem) 90 mg Q8HR ORAL 05/20/18 14:00 06/19/18 13:59 05/21/18 05:55 Mirtazapine (Remeron) 15 mg BEDTIME ORAL 05/20/18 21:00 06/19/18 20:59 05/20/18 20:15 Ondansetron HCl (Zofran) 4 mg Q6H PRN IVP Nausea & Vomiting 05/20/18 10:30 06/19/18 10:29 Polyethylene Glycol (Miralax) 17 gm DAILYPRN PRN ORAL Constipation 05/20/18 10:30 06/19/18 10:29 Risperidone (RisperDAL) 2 mg BEDTIME ORAL 05/20/18 21:00 06/19/18 20:59 05/20/18 20:15 Temazepam (Restoril) 15 mg HSPRN PRN ORAL Insomnia 05/20/18 21:00 05/27/18 20:59 Subjective ROS Limited/Unobtainable: No Allergies: Coded Allergies: PIPERACILLIN (Unverified Allergy, Unknown, 05/21/18) tolerates cephalosporins TAZOBACTAM (Unverified Allergy, Unknown, 03/10/18) Objective Last 24 Hour Vital Signs Date Time Temp Pulse Resp B/P (MAP) Pulse Ox O2 Delivery O2 Flow Rate FiO2 05/25/18 15:16 85 137/65 05/25/18 12:00 97.8 73 21 148/66 (93) 97 05/25/18 12:00 77 05/25/18 12:00 30 05/25/18 12:00 Bi-pap Bi-pap 05/25/18 11:06 70 18 98 Nasal Cannula 3.0 32 05/25/18 10:56 72 18 94 Nasal Cannula 3.0 32 05/25/18 08:00 69 05/25/18 08:00 Bi-pap Bi-pap 05/25/18 08:00 97.8 73 19 152/65 (94) 96 05/25/18 08:00 30 05/25/18 07:28 61 18 98 Nasal Cannula 32 05/25/18 07:18 60 18 96 Nasal Cannula 32 05/25/18 07:15 Nasal Cannula 3.0 32 05/25/18 07:15 96 Nasal Cannula 3.0 32 05/25/18 06:00 60 146/73 05/25/18 05:18 62 17 98 Full Face 30 05/25/18 04:00 97.5 60 17 146/58 (87) 96 05/25/18 04:00 60 05/25/18 04:00 30 05/25/18 04:00 Bi-pap Bi-pap 05/25/18 03:46 60 19 98 Bi-pap 30 05/25/18 03:36 60 18 98 Bi-pap 30 05/25/18 03:36 60 18 97 Full Face 30 05/25/18 01:04 70 18 97 Full Face 30 05/25/18 00:00 70 05/25/18 00:00 97.8 68 16 147/71 (96) 96 05/25/18 00:00 Bi-pap Bi-pap 05/25/18 00:00 30 05/24/18 23:16 71 19 97 Full Face 30 05/24/18 23:15 71 18 100 Bi-pap 30 05/24/18 23:05 67 18 Nasal Cannula 3.0 32 05/24/18 23:05 67 18 95 Nasal Cannula 3.0 32 05/24/18 21:18 72 146/64 05/24/18 20:00 40 05/24/18 20:00 70 05/24/18 20:00 98.0 72 20 146/64 (91) 97 05/24/18 20:00 Bi-pap Bi-pap 05/24/18 19:46 72 18 99 Nasal Cannula 3.0 32 05/24/18 19:36 97 Nasal Cannula 3.0 32 05/24/18 19:36 Nasal Cannula 3.0 32 05/24/18 19:36 75 18 97 Nasal Cannula 3.0 32 05/24/18 19:03 98.4 05/24/18 17:00 65 05/24/18 16:30 65 18 95 05/24/18 16:00 Bi-pap Bi-pap 05/24/18 16:00 40 05/24/18 16:00 98.4 67 20 137/65 (89) 96 Intake and Output 05/24/18 05/25/18 18:59 06:59 Intake Total 535 ml 438.667 ml Balance 535 ml 438.667 ml Intake Oral 480 ml 200 ml IV Total 55 ml 238.667 ml # Voids 1 2 # Bowel Movements 2 Laboratory Tests 05/24/18 15:45: Vancomycin Level Trough 21.0H Current Medications Medications (Trade) Dose Ordered Sig/Ibrahima Route PRN Reason Start Time Stop Time Status Last Admin Dose Admin Acetaminophen (Tylenol) 650 mg Q4H PRN ORAL Fever 05/20/18 10:30 06/19/18 10:29 05/24/18 18:39 Amiodarone HCl (Cordarone) 200 mg DAILY ORAL 05/21/18 09:00 06/20/18 08:59 05/25/18 08:58 Apixaban (Eliquis) 5 mg BID ORAL 05/20/18 18:00 06/19/18 17:59 05/25/18 08:58 Cefepime HCl 1 gm/ Dextrose 55 ml @ 110 mls/hr Q24H IVPB 05/21/18 15:00 05/28/18 14:59 05/25/18 15:17 Dextrose (Dextrose 50%) 25 ml Q30M PRN IV Hypoglycemia 05/20/18 10:30 06/19/18 10:29 Dextrose (Dextrose 50%) 50 ml Q30M PRN IV Hypoglycemia 05/20/18 10:30 06/19/18 10:29 Diltiazem HCl (Cardizem) 90 mg Q8HR ORAL 05/20/18 14:00 06/19/18 13:59 05/25/18 15:16 Guaifenesin (Robitussin) 200 mg Q4H PRN ORAL For Cough 05/22/18 18:15 06/21/18 18:14 05/22/18 18:27 Ipratropium [place] (Atrovent) 500 mcg Q4H HHN 05/23/18 20:00 05/28/18 19:59 05/25/18 10:58 Methylprednisolone Sodium Succinate (Solu-MEDROL) 40 mg EVERY 12 HOURS IVP 05/23/18 21:00 06/22/18 20:59 05/25/18 08:58 Mirtazapine (Remeron) 15 mg BEDTIME ORAL 05/20/18 21:00 06/19/18 20:59 05/24/18 21:19 Ondansetron HCl (Zofran) 4 mg Q6H PRN IVP Nausea & Vomiting 05/20/18 10:30 06/19/18 10:29 Polyethylene Glycol (Miralax) 17 gm DAILYPRN PRN ORAL Constipation 05/20/18 10:30 06/19/18 10:29 Risperidone (RisperDAL) 2 mg BEDTIME ORAL 05/20/18 21:00 06/19/18 20:59 05/24/18 21:19 Temazepam (Restoril) 15 mg HSPRN PRN ORAL Insomnia 05/20/18 21:00 05/27/18 20:59 05/24/18 21:19 Vancomycin HCl (Vanco rx to dose) 1 ea DAILY PRN MISC Per rx protocol 05/21/18 13:45 06/20/18 13:44 Vancomycin/Sodium Chloride 250 ml @ 166.667 mls/hr Q12H IVPB 05/25/18 04:00 05/30/18 03:59 05/25/18 15:17 Josue Todd MD May 25, 2018 15:23
[2018-05-25 16:00] VITALS: BP 137/65
--- NOTE | 2018-05-25 17:34 | Internal Med Progress Note ---
Subjective Physician Name Yonathan Mendoza Attending Physician Yonathan Mendoza MD Current Medications Medications (Trade) Dose Ordered Sig/Ibrahima Route PRN Reason Start Time Stop Time Status Last Admin Dose Admin Acetaminophen (Tylenol) 650 mg Q4H PRN ORAL Fever 05/20/18 10:30 06/19/18 10:29 05/24/18 18:39 Amiodarone HCl (Cordarone) 200 mg DAILY ORAL 05/21/18 09:00 06/20/18 08:59 05/25/18 08:58 Apixaban (Eliquis) 5 mg BID ORAL 05/20/18 18:00 06/19/18 17:59 05/25/18 08:58 Cefepime HCl 1 gm/ Dextrose 55 ml @ 110 mls/hr Q24H IVPB 05/21/18 15:00 05/28/18 14:59 05/25/18 15:17 Dextrose (Dextrose 50%) 25 ml Q30M PRN IV Hypoglycemia 05/20/18 10:30 06/19/18 10:29 Dextrose (Dextrose 50%) 50 ml Q30M PRN IV Hypoglycemia 05/20/18 10:30 06/19/18 10:29 Diltiazem HCl (Cardizem) 90 mg Q8HR ORAL 05/20/18 14:00 06/19/18 13:59 05/25/18 15:16 Guaifenesin (Robitussin) 200 mg Q4H PRN ORAL For Cough 05/22/18 18:15 06/21/18 18:14 05/22/18 18:27 Ipratropium [place] (Atrovent) 500 mcg Q4H HHN 05/23/18 20:00 05/28/18 19:59 05/25/18 15:35 Methylprednisolone Sodium Succinate (Solu-MEDROL) 40 mg EVERY 12 HOURS IVP 05/23/18 21:00 06/22/18 20:59 05/25/18 08:58 Mirtazapine (Remeron) 15 mg BEDTIME ORAL 05/20/18 21:00 06/19/18 20:59 05/24/18 21:19 Ondansetron HCl (Zofran) 4 mg Q6H PRN IVP Nausea & Vomiting 05/20/18 10:30 06/19/18 10:29 Polyethylene Glycol (Miralax) 17 gm DAILYPRN PRN ORAL Constipation 05/20/18 10:30 06/19/18 10:29 Risperidone (RisperDAL) 2 mg BEDTIME ORAL 05/20/18 21:00 06/19/18 20:59 05/24/18 21:19 Temazepam (Restoril) 15 mg HSPRN PRN ORAL Insomnia 05/20/18 21:00 05/27/18 20:59 05/24/18 21:19 Vancomycin HCl (Vanco rx to dose) 1 ea DAILY PRN MISC Per rx protocol 05/21/18 13:45 06/20/18 13:44 Vancomycin/Sodium Chloride 250 ml @ 166.667 mls/hr Q12H IVPB 05/25/18 04:00 05/30/18 03:59 05/25/18 15:17 Allergies: Coded Allergies: PIPERACILLIN (Unverified Allergy, Unknown, 05/21/18) tolerates cephalosporins TAZOBACTAM (Unverified Allergy, Unknown, 03/10/18) Subjective awake, alert, responsive, on NC Objective Last Vital Signs Date Time Temp Pulse Resp B/P (MAP) Pulse Ox O2 Delivery O2 Flow Rate FiO2 05/25/18 16:00 Bi-pap Bi-pap 05/25/18 16:00 97.9 85 19 137/65 (89) 96 05/25/18 16:00 30 05/25/18 15:45 3.0 Intake and Output 05/24/18 05/25/18 19:00 07:00 Intake Total 535 ml 450.000 ml Balance 535 ml 450.000 ml Intake Oral 480 ml 200 ml IV Total 55 ml 250.000 ml # Voids 1 2 # Bowel Movements 2 Objective General: No acute distress, awake and alert, on NC. HEENT: NCAT, sclera anicteric, PERRL, EOMI. Neck: Supple, no significant jugular venous distention, Lungs: Fair inspiratory effort, decrease air at bases, no Wheeze or Rales. Heart: Irregular rate and rhythm, normal S1/S2, no murmurs Abdomen: soft, nontender, nondistended. Normoactive bowel sounds. Extremities: No Cyanosis , clubbing or edema. Neuro: A&O x 3, Able to move all extremities Skin: warm, no rashes Assessment/Plan Assessment/Plan (1) Paranoid schizophrenia (2) Pneumonia (3) Altered mental status (4) Acute Hypoxemia Respiratory failure (5) History of permanent pacemaker implantation leadless device. (6) Atrial flutter / Fibrillation. (7) Chronic CHF (congestive heart failure) with diastolic dysfunction. (8) COPD (chronic obstructive pulmonary disease) (9) CAD (coronary artery disease) (10) HTN (hypertension) (11) Seizure disorder (12) Sepsis (13) Pleural effusion. (14) Bacteremia staph hominis most likely contamination. Plan: Abx: Vanco IV, Cefepime IV On Eliquis Full code F/U with labs and cultures, Solumedral 40 mg IV Bid Yonathan Mendoza MD May 25, 2018 17:34
--- NOTE | 2018-05-25 18:15 | General Progress Note ---
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 (2) Major depression ICD Codes: F32.9 - Major depressive disorder, single episode, unspecified SNOMED: 67061120, 240963130 (3) Schizophrenia ICD Codes: F20.9 - Schizophrenia, unspecified SNOMED: 99535936 Status: stable Assessment/Plan Risperdal 2mg qhs ativan prn raise the head Subjective Neurologic/Psychiatric: Reports: anxiety, depressed Allergies: Coded Allergies: PIPERACILLIN (Unverified Allergy, Unknown, 05/21/18) tolerates cephalosporins TAZOBACTAM (Unverified Allergy, Unknown, 03/10/18) Subjective the pt was more confused than baseline the pt was asking about "memory pills" Objective Last 24 Hour Vital Signs Date Time Temp Pulse Resp B/P (MAP) Pulse Ox O2 Delivery O2 Flow Rate FiO2 05/25/18 16:00 Bi-pap Bi-pap 05/25/18 16:00 97.9 85 19 137/65 (89) 96 05/25/18 16:00 69 05/25/18 16:00 30 05/25/18 15:45 72 18 99 Nasal Cannula 3.0 32 05/25/18 15:34 74 18 95 Nasal Cannula 3.0 32 05/25/18 15:16 85 137/65 05/25/18 12:00 97.8 73 21 148/66 (93) 97 05/25/18 12:00 77 05/25/18 12:00 30 05/25/18 12:00 Bi-pap Bi-pap 05/25/18 11:06 70 18 98 Nasal Cannula 3.0 32 05/25/18 10:56 72 18 94 Nasal Cannula 3.0 32 05/25/18 08:00 69 05/25/18 08:00 Bi-pap Bi-pap 05/25/18 08:00 97.8 73 19 152/65 (94) 96 05/25/18 08:00 30 05/25/18 07:28 61 18 98 Nasal Cannula 32 05/25/18 07:18 60 18 96 Nasal Cannula 32 05/25/18 07:15 Nasal Cannula 3.0 32 05/25/18 07:15 96 Nasal Cannula 3.0 32 05/25/18 06:00 60 146/73 05/25/18 05:18 62 17 98 Full Face 30 05/25/18 04:00 97.5 60 17 146/58 (87) 96 05/25/18 04:00 60 05/25/18 04:00 30 05/25/18 04:00 Bi-pap Bi-pap 05/25/18 03:46 60 19 98 Bi-pap 30 05/25/18 03:36 60 18 98 Bi-pap 30 05/25/18 03:36 60 18 97 Full Face 30 05/25/18 01:04 70 18 97 Full Face 30 05/25/18 00:00 70 05/25/18 00:00 97.8 68 16 147/71 (96) 96 05/25/18 00:00 Bi-pap Bi-pap 05/25/18 00:00 30 05/24/18 23:16 71 19 97 Full Face 30 05/24/18 23:15 71 18 100 Bi-pap 30 05/24/18 23:05 67 18 Nasal Cannula 3.0 32 05/24/18 23:05 67 18 95 Nasal Cannula 3.0 32 05/24/18 21:18 72 146/64 05/24/18 20:00 40 05/24/18 20:00 70 05/24/18 20:00 98.0 72 20 146/64 (91) 97 05/24/18 20:00 Bi-pap Bi-pap 05/24/18 19:46 72 18 99 Nasal Cannula 3.0 32 05/24/18 19:36 97 Nasal Cannula 3.0 32 05/24/18 19:36 Nasal Cannula 3.0 32 05/24/18 19:36 75 18 97 Nasal Cannula 3.0 32 05/24/18 19:03 98.4 Intake and Output 05/24/18 05/25/18 19:00 07:00 Intake Total 535 ml 450.000 ml Balance 535 ml 450.000 ml Intake Oral 480 ml 200 ml IV Total 55 ml 250.000 ml # Voids 1 2 # Bowel Movements 2 Height (Feet): 5 Height (Inches): 2.00 Weight (Pounds): 184 General Appearance: alert, confused - oriented to self place , agitated Luiz Morrison MD May 25, 2018 18:15
[2018-05-25 20:00] VITALS: BP 135/59
[2018-05-26] VITALS: BP 148/75
[2018-05-26] MEDS: Ipratropium 0.02% Inh Soln 2.5ml UD HHN SCH ×6 (02:57→22:56)
[2018-05-26] MEDS: Vancomycin 750mg/NS 250ml IVPB SCH (03:43)
[2018-05-26 04:00] VITALS: BP 133/78
[2018-05-26] MEDS: dilTIAZem HCl 90mg tab ORAL SCH ×3 (05:50→21:10)
[2018-05-26 08:00] VITALS: BP 149/77
[2018-05-26] MEDS: Eliquis 2.5mg tablet ORAL SCH ×2 (08:30→17:00)
[2018-05-26] MEDS: Solu-MEDROL 40mg Inj IVP SCH ×2 (08:30→21:09)
[2018-05-26] MEDS: Amiodarone 200mg tab ORAL SCH (08:30)
--- NOTE | 2018-05-26 09:08 | Diagnostic Imaging Report ---
INDICATION: Cough COMPARISON: Chest x-ray 05/22/18 FINDINGS: Single frontal view demonstrates an enlarged cardiac size. Atherosclerotic vascular disease. Opacity in the left lower lung zone. The visualized osseous structures are within normal limits. IMPRESSION: No significant change. Enlarged cardiac size with opacity in the left lower lung zone.
--- NOTE | 2018-05-26 11:52 | Cardiology Progress Note ---
Assessment/Plan Assessment/Plan 1. Permanent atrial fibrillation/flutter. 2. History of congestive heart failure, diastolic in origin. 3. COPD. 4. Reported history of coronary artery disease. 5. History of permanent pacemaker implantation leadless device. 6. Atrial fibrillation previously. 7. History of COPD. 8. Pneumonia. 9. Pleural effusion. 10. History of psychosis and schizophrenia. 11. Bacteremia staph hominis trop neg tele noted afib vr ok treat for underlying pneumonia iv abx hhn amiod and eliquis id feel staph is contaminent intermittent bipap no change in mamangm,et Subjective Cardiovascular: Denies: chest pain, lightheadedness Gastrointestinal/Abdominal: Denies: abdominal pain Genitourinary: Denies: burning Objective Last 24 Hour Vital Signs Date Time Temp Pulse Resp B/P (MAP) Pulse Ox O2 Delivery O2 Flow Rate FiO2 05/26/18 10:46 72 20 100 Nasal Cannula 3.0 32 05/26/18 10:35 74 18 96 Nasal Cannula 3.0 32 05/26/18 08:00 98.2 74 21 149/77 (101) 95 05/26/18 08:00 2.0 05/26/18 07:21 62 20 98 Nasal Cannula 3.0 32 05/26/18 07:21 Nasal Cannula 3.0 32 05/26/18 07:20 95 Nasal Cannula 3.0 32 05/26/18 07:06 68 18 92 Bi-pap 30 05/26/18 05:50 60 136/78 05/26/18 04:51 68 19 98 Full Face 30 05/26/18 04:00 Bi-pap Bi-pap 05/26/18 04:00 97.7 60 18 133/78 (96) 95 05/26/18 04:00 60 05/26/18 04:00 30 05/26/18 03:04 63 16 98 Bi-pap 30 05/26/18 02:58 62 16 98 Full Face 30 05/26/18 02:57 62 16 98 Bi-pap 30 05/26/18 01:01 72 19 95 Full Face 35 05/26/18 00:00 71 05/26/18 00:00 Bi-pap Bi-pap 05/26/18 00:00 97.9 68 17 148/75 (99) 97 05/25/18 23:48 71 21 96 Full Face 30 05/25/18 22:45 74 18 99 Nasal Cannula 3.0 32 05/25/18 22:37 74 18 95 Nasal Cannula 3.0 32 05/25/18 21:01 72 135/59 05/25/18 20:00 97.9 72 24 135/59 (84) 95 05/25/18 20:00 Nasal Cannula 2.0 Nasal Cannula 2.0 05/25/18 20:00 72 05/25/18 20:00 2.0 05/25/18 19:16 76 18 99 Nasal Cannula 3.0 32 05/25/18 19:07 96 Nasal Cannula 3.0 32 05/25/18 19:07 Nasal Cannula 3.0 32 05/25/18 19:06 77 18 96 Nasal Cannula 3.0 32 05/25/18 16:00 Bi-pap Bi-pap 05/25/18 16:00 97.9 85 19 137/65 (89) 96 05/25/18 16:00 69 05/25/18 16:00 30 05/25/18 15:45 72 18 99 Nasal Cannula 3.0 32 05/25/18 15:34 74 18 95 Nasal Cannula 3.0 32 05/25/18 15:16 85 137/65 05/25/18 12:00 97.8 73 21 148/66 (93) 97 05/25/18 12:00 77 05/25/18 12:00 30 05/25/18 12:00 Bi-pap Bi-pap General Appearance: no apparent distress - having attmept by rn to place iv inplace , alert Neck: supple Cardiovascular: regular rhythm Respiratory/Chest: lungs clear - ant Abdomen: normal bowel sounds, non tender Extremities: no swelling Intake and Output 05/25/18 05/26/18 18:59 06:59 Intake Total 788.000 ml 120 ml Output Total 500 ml Balance 788.000 ml -380 ml Intake Oral 500 ml 120 ml IV Total 288.000 ml Output Urine Total 500 ml # Voids 2 # Bowel Movements 2 Akbar Reno MD May 26, 2018 11:52
[2018-05-26 12:00] VITALS: BP 154/68
--- NOTE | 2018-05-26 12:54 | Internal Med Progress Note ---
Subjective Physician Name Yonathan Mendoza Attending Physician Yonathan Mendoza MD Current Medications Medications (Trade) Dose Ordered Sig/Ibrahima Route PRN Reason Start Time Stop Time Status Last Admin Dose Admin Acetaminophen (Tylenol) 650 mg Q4H PRN ORAL Fever 05/20/18 10:30 06/19/18 10:29 05/24/18 18:39 Amiodarone HCl (Cordarone) 200 mg DAILY ORAL 05/21/18 09:00 06/20/18 08:59 05/26/18 08:30 Apixaban (Eliquis) 5 mg BID ORAL 05/20/18 18:00 06/19/18 17:59 05/26/18 08:30 Cefepime HCl 1 gm/ Dextrose 55 ml @ 110 mls/hr Q24H IVPB 05/21/18 15:00 05/28/18 14:59 05/25/18 15:17 Dextrose (Dextrose 50%) 25 ml Q30M PRN IV Hypoglycemia 05/20/18 10:30 06/19/18 10:29 Dextrose (Dextrose 50%) 50 ml Q30M PRN IV Hypoglycemia 05/20/18 10:30 06/19/18 10:29 Diltiazem HCl (Cardizem) 90 mg Q8HR ORAL 05/20/18 14:00 06/19/18 13:59 05/25/18 21:01 Guaifenesin (Robitussin) 200 mg Q4H PRN ORAL For Cough 05/22/18 18:15 06/21/18 18:14 05/22/18 18:27 Ipratropium [place] (Atrovent) 500 mcg Q4HRT HHN 05/26/18 03:00 05/28/18 19:59 05/26/18 10:35 Methylprednisolone Sodium Succinate (Solu-MEDROL) 40 mg EVERY 12 HOURS IVP 05/23/18 21:00 06/22/18 20:59 05/26/18 08:30 Mirtazapine (Remeron) 15 mg BEDTIME ORAL 05/20/18 21:00 06/19/18 20:59 05/25/18 21:01 Ondansetron HCl (Zofran) 4 mg Q6H PRN IVP Nausea & Vomiting 05/20/18 10:30 06/19/18 10:29 Polyethylene Glycol (Miralax) 17 gm DAILYPRN PRN ORAL Constipation 05/20/18 10:30 06/19/18 10:29 Risperidone (RisperDAL) 2 mg BEDTIME ORAL 05/20/18 21:00 06/19/18 20:59 05/25/18 21:01 Temazepam (Restoril) 15 mg HSPRN PRN ORAL Insomnia 05/20/18 21:00 05/27/18 20:59 05/24/18 21:19 Vancomycin HCl (Vanco rx to dose) 1 ea DAILY PRN MISC Per rx protocol 05/21/18 13:45 06/20/18 13:44 Vancomycin/Sodium Chloride 250 ml @ 166.667 mls/hr Q12H IVPB 05/25/18 04:00 05/30/18 03:59 05/26/18 03:43 Allergies: Coded Allergies: PIPERACILLIN (Unverified Allergy, Unknown, 05/21/18) tolerates cephalosporins TAZOBACTAM (Unverified Allergy, Unknown, 03/10/18) Subjective awake, alert, responsive, talking, NAD, Feeling good, on NC Objective Last Vital Signs Date Time Temp Pulse Resp B/P (MAP) Pulse Ox O2 Delivery O2 Flow Rate FiO2 05/26/18 12:00 98.5 76 20 154/68 (96) 98 05/26/18 12:00 Bi-pap Bi-pap 05/26/18 12:00 2.0 05/26/18 10:46 32 Intake and Output 05/25/18 05/26/18 19:00 07:00 Intake Total 776.667 ml 120 ml Output Total 500 ml Balance 776.667 ml -380 ml Intake Oral 500 ml 120 ml IV Total 276.667 ml Output Urine Total 500 ml # Voids 2 # Bowel Movements 2 Objective General: No acute distress, awake and alert, on NC. HEENT: NCAT, sclera anicteric, PERRL, EOMI. Neck: Supple, no significant jugular venous distention, Lungs: Fair inspiratory effort, decrease air at bases, no Wheeze or Rales. Heart: Irregular rate and rhythm, normal S1/S2, no murmurs Abdomen: soft, nontender, nondistended. Normoactive bowel sounds. Extremities: No Cyanosis , clubbing or edema. Neuro: A&O x 3, Able to move all extremities Skin: warm, no rashes Assessment/Plan Assessment/Plan (1) Paranoid schizophrenia (2) Pneumonia (3) Altered mental status (4) Acute Hypoxemia Respiratory failure (5) History of permanent pacemaker implantation leadless device. (6) Atrial flutter / Fibrillation. (7) Chronic CHF (congestive heart failure) with diastolic dysfunction. (8) COPD (chronic obstructive pulmonary disease) (9) CAD (coronary artery disease) (10) HTN (hypertension) (11) Seizure disorder (12) Sepsis (13) Pleural effusion. (14) Bacteremia staph hominis most likely contamination. Plan: Abx: Vanco IV, Cefepime IV On Eliquis Full code F/U with labs and cultures, Solumedral 40 mg IV Bid DC Planning to SNF in AM, Yonathan Mendoza MD May 26, 2018 12:54
[2018-05-26] MEDS: Cefepime HCl 1 GM in D5W 55 ML IVPB SCH (14:18)
[2018-05-26 16:00] VITALS: BP 159/76
[2018-05-26] MEDS: Vancomycin 1gm/D5W 275ml IVPB SCH ×2 (17:00)
[2018-05-26 20:00] VITALS: BP 158/82
[2018-05-27] VITALS: BP 149/71
[2018-05-27] MEDS: Ipratropium 0.02% Inh Soln 2.5ml UD HHN SCH ×4 (02:59→16:14)
[2018-05-27 04:00] VITALS: BP 141/74
[2018-05-27] MEDS: Vancomycin 1gm/D5W 275ml IVPB SCH ×4 (04:02→16:16)
[2018-05-27] MEDS: dilTIAZem HCl 90mg tab ORAL SCH ×2 (06:27→14:00)
[2018-05-27 08:00] VITALS: BP 135/70
[2018-05-27] MEDS: Amiodarone 200mg tab ORAL SCH (08:31)
[2018-05-27] MEDS: Solu-MEDROL 40mg Inj IVP SCH (08:31)
[2018-05-27] MEDS: Eliquis 2.5mg tablet ORAL SCH (08:31)
[2018-05-27 12:00] VITALS: BP 127/70
--- NOTE | 2018-05-27 12:50 | Diagnostic Imaging Report ---
APPROVED REPORT CPT Code: 89591 Present Symptoms Comments: Pain BILATERAL: Imaging reveals a patent deep venous system bilaterally. There is no evidence of thrombus within the femoral, popliteal or tibial segments. The greater saphenous veins are also within normal limits. Doppler indicates normal spontaneous flow within these segments.
--- NOTE | 2018-05-27 13:00 | Infectious Diseases Prog Note ---
Assessment/Plan Assessment/Plan Assessment: Acute respiratory failure, on BIpap- due to combination of PNA and CHF -05/22 CXR: Hazy right basilar opacity, left lateral basilar opacity are all unchanged. Borderline cardiomegaly persists. Monitoring device again overlies the left hemidiaphragm -CXR: Right basilar opacity, likely combination of pleural fluid and infiltrate, increased from 04/16/2018. Large left pleural effusion, may be slightly increased from 04/16/2018. Generalized interstitial prominence, may be combination of interstitial edema and chronic interstitial changes. -influenza sc , legionella ag urine neg -sp cx p Gram positive bacteremia, high grade- suspect contaminants -05/19 Bcx 3/4 S. hominis sp hominis; 05/21 Bc xNTD -2d eCho: no vegetations. Focal aortic valve sclerosis with reduced cusp excursion. Thickened mitral valve leaflets with reduced excursion. 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, Legionella 04/2018, s/p Rx SP VDRF, 04/10 Sp extubated Legionella Ur Ag: Neg, Legionella IgM + / IgG - Scx: No sig growth Flu screen negative Atrial flutter dCHF COPD CAD s/p stents Hypertension Seizure disorder Schizophrenia Depression History of intraventricular pacemaker implantation GERD CVA/TIA b/l hip replacement hx of L DVT history of alcohol abuse hx of recurrent admissions hx of high grade CONS bacteremia (JIMY neg 09/2017) SNF resident Plan: -Cont empiric IV Vancomycin and Cefepime #7/7 for PNA -05/19 SP Levaquin x1 -f/u sp cx -f/u cx -Monitor CBC/CMP, temperatures -aspiration precautions Thank you for this consultation. Will continue to follow along with you. Discussed with RN. Subjective Allergies: Coded Allergies: PIPERACILLIN (Unverified Allergy, Unknown, 05/21/18) tolerates cephalosporins TAZOBACTAM (Unverified Allergy, Unknown, 03/10/18) Subjective afebrile repeat bCX neg SP CX P off bipap, now on 2l nC Objective Vital Signs Last 24 Hour Vital Signs Date Time Temp Pulse Resp B/P (MAP) Pulse Ox O2 Delivery O2 Flow Rate FiO2 05/27/18 11:03 71 18 96 Nasal Cannula 4.0 36 05/27/18 10:56 74 18 97 Nasal Cannula 4.0 36 05/27/18 08:19 63 05/27/18 08:00 Bi-pap 2.0 Nasal Cannula 05/27/18 08:00 97.9 70 18 135/70 (91) 95 05/27/18 07:20 62 18 98 Nasal Cannula 4.0 36 05/27/18 07:13 96 Nasal Cannula 4.0 36 05/27/18 07:13 71 18 96 Nasal Cannula 4.0 36 05/27/18 07:13 Nasal Cannula 4.0 36 05/27/18 06:27 68 141/74 05/27/18 05:53 68 20 94 05/27/18 04:48 60 21 93 Facial 30 05/27/18 04:00 98.1 65 18 141/74 (96) 93 05/27/18 04:00 Bi-pap Bi-pap 05/27/18 04:00 60 05/27/18 03:06 61 20 97 Bi-pap 30 05/27/18 03:01 65 21 94 Facial 30 05/27/18 02:59 68 18 94 Nasal Cannula 3.0 32 05/27/18 01:12 69 20 95 Full Face 30 05/27/18 00:00 69 05/27/18 00:00 Bi-pap Bi-pap 05/27/18 00:00 97.6 69 18 149/71 (97) 96 05/26/18 23:07 76 25 94 Full Face 30 05/26/18 23:03 78 20 98 Nasal Cannula 3.0 32 05/26/18 23:00 35 05/26/18 22:55 81 20 95 Nasal Cannula 3.0 32 05/26/18 21:10 82 158/82 05/26/18 20:00 Bi-pap Bi-pap 05/26/18 20:00 2.0 05/26/18 20:00 97.4 82 18 158/82 (107) 98 05/26/18 20:00 82 05/26/18 19:08 77 20 99 Nasal Cannula 3.0 32 05/26/18 19:00 93 Nasal Cannula 3.0 32 05/26/18 19:00 88 20 93 Nasal Cannula 3.0 32 05/26/18 19:00 Nasal Cannula 3.0 32 05/26/18 16:00 2.0 05/26/18 16:00 85 05/26/18 16:00 Bi-pap Bi-pap 05/26/18 16:00 98.7 83 20 159/76 (103) 99 05/26/18 15:15 75 18 100 Nasal Cannula 3.0 32 05/26/18 15:01 74 18 97 Nasal Cannula 3.0 32 05/26/18 14:07 80 154/68 Height (Feet): 5 Height (Inches): 2.00 Weight (Pounds): 184 Objective GENERAL: An elderly female, on BiPAP therapy. NECK: Supple. No jugular venous distention. LUNGS: Crackles heard slightly. Breath sounds otherwise decreased bilaterally. CARDIAC: Irregularly irregular. Not tachycardic. No heaves or thrills noted. ABDOMEN: Soft and nontender. Positive bowel sounds. EXTREMITIES: There is no clubbing, cyanosis, or edema. NEUROLOGICAL: She is awake, alert, responsive, and moves all four extremities Laboratory Tests Test 05/26/18 14:55 Vancomycin Level Trough 11.0 ug/mL (5.0-12.0) Current Medications Medications (Trade) Dose Ordered Sig/Ibrahima Route PRN Reason Start Time Stop Time Status Last Admin Dose Admin Acetaminophen (Tylenol) 650 mg Q4H PRN ORAL Fever 05/20/18 10:30 06/19/18 10:29 05/24/18 18:39 Amiodarone HCl (Cordarone) 200 mg DAILY ORAL 05/21/18 09:00 06/20/18 08:59 05/27/18 08:31 Apixaban (Eliquis) 5 mg BID ORAL 05/20/18 18:00 06/19/18 17:59 05/27/18 08:31 Cefepime HCl 1 gm/ Dextrose 55 ml @ 110 mls/hr Q24H IVPB 05/21/18 15:00 05/28/18 14:59 05/26/18 14:18 Dextrose (Dextrose 50%) 25 ml Q30M PRN IV Hypoglycemia 05/20/18 10:30 06/19/18 10:29 Dextrose (Dextrose 50%) 50 ml Q30M PRN IV Hypoglycemia 05/20/18 10:30 06/19/18 10:29 Diltiazem HCl (Cardizem) 90 mg Q8HR ORAL 05/20/18 14:00 06/19/18 13:59 05/27/18 06:27 Guaifenesin (Robitussin) 200 mg Q4H PRN ORAL For Cough 05/22/18 18:15 06/21/18 18:14 05/22/18 18:27 Ipratropium [place] (Atrovent) 500 mcg Q4HRT HHN 05/26/18 03:00 05/28/18 19:59 05/27/18 10:56 Methylprednisolone Sodium Succinate (Solu-MEDROL) 40 mg EVERY 12 HOURS IVP 05/23/18 21:00 06/22/18 20:59 05/27/18 08:31 Mirtazapine (Remeron) 15 mg BEDTIME ORAL 05/20/18 21:00 06/19/18 20:59 05/26/18 21:10 Ondansetron HCl (Zofran) 4 mg Q6H PRN IVP Nausea & Vomiting 05/20/18 10:30 06/19/18 10:29 Polyethylene Glycol (Miralax) 17 gm DAILYPRN PRN ORAL Constipation 05/20/18 10:30 06/19/18 10:29 Risperidone (RisperDAL) 2 mg BEDTIME ORAL 05/20/18 21:00 06/19/18 20:59 05/26/18 21:10 Temazepam (Restoril) 15 mg HSPRN PRN ORAL Insomnia 05/20/18 21:00 05/27/18 20:59 05/26/18 21:10 Vancomycin HCl (Vanco rx to dose) 1 ea DAILY PRN MISC Per rx protocol 05/21/18 13:45 06/20/18 13:44 Vancomycin HCl 1 gm/Dextrose 275 ml @ 183.708 mls/hr Q12H IVPB 05/26/18 16:00 05/31/18 15:59 05/27/18 04:02 Danica Nayak M.D. May 27, 2018 13:00
[2018-05-27] MEDS: Cefepime HCl 1 GM in D5W 55 ML IVPB SCH (15:00)
--- NOTE | 2018-05-27 15:24 | Internal Med Progress Note ---
Subjective Physician Name Yonathan Mendoza Attending Physician Yonathan Mendoza MD Current Medications Medications (Trade) Dose Ordered Sig/Ibrahima Route PRN Reason Start Time Stop Time Status Last Admin Dose Admin Acetaminophen (Tylenol) 650 mg Q4H PRN ORAL Fever 05/20/18 10:30 06/19/18 10:29 05/27/18 13:16 Amiodarone HCl (Cordarone) 200 mg DAILY ORAL 05/21/18 09:00 06/20/18 08:59 05/27/18 08:31 Apixaban (Eliquis) 5 mg BID ORAL 05/20/18 18:00 06/19/18 17:59 05/27/18 08:31 Cefepime HCl 1 gm/ Dextrose 55 ml @ 110 mls/hr Q24H IVPB 05/21/18 15:00 05/28/18 14:59 05/26/18 14:18 Dextrose (Dextrose 50%) 25 ml Q30M PRN IV Hypoglycemia 05/20/18 10:30 06/19/18 10:29 Dextrose (Dextrose 50%) 50 ml Q30M PRN IV Hypoglycemia 05/20/18 10:30 06/19/18 10:29 Diltiazem HCl (Cardizem) 90 mg Q8HR ORAL 05/20/18 14:00 06/19/18 13:59 05/27/18 14:00 Guaifenesin (Robitussin) 200 mg Q4H PRN ORAL For Cough 05/22/18 18:15 06/21/18 18:14 05/22/18 18:27 Ipratropium [place] (Atrovent) 500 mcg Q4HRT HHN 05/26/18 03:00 05/28/18 19:59 05/27/18 10:56 Methylprednisolone Sodium Succinate (Solu-MEDROL) 40 mg EVERY 12 HOURS IVP 05/23/18 21:00 06/22/18 20:59 05/27/18 08:31 Mirtazapine (Remeron) 15 mg BEDTIME ORAL 05/20/18 21:00 06/19/18 20:59 05/26/18 21:10 Ondansetron HCl (Zofran) 4 mg Q6H PRN IVP Nausea & Vomiting 05/20/18 10:30 06/19/18 10:29 Polyethylene Glycol (Miralax) 17 gm DAILYPRN PRN ORAL Constipation 05/20/18 10:30 06/19/18 10:29 Risperidone (RisperDAL) 2 mg BEDTIME ORAL 05/20/18 21:00 06/19/18 20:59 05/26/18 21:10 Temazepam (Restoril) 15 mg HSPRN PRN ORAL Insomnia 05/20/18 21:00 05/27/18 20:59 05/26/18 21:10 Vancomycin HCl (Vanco rx to dose) 1 ea DAILY PRN MISC Per rx protocol 05/21/18 13:45 06/20/18 13:44 Vancomycin HCl 1 gm/Dextrose 275 ml @ 183.708 mls/hr Q12H IVPB 05/26/18 16:00 05/31/18 15:59 05/27/18 04:02 Allergies: Coded Allergies: PIPERACILLIN (Unverified Allergy, Unknown, 05/21/18) tolerates cephalosporins TAZOBACTAM (Unverified Allergy, Unknown, 03/10/18) Subjective awake, alert, responsive, talking, NAD, Feeling Okay, On O2 Via NC Objective Last Vital Signs Date Time Temp Pulse Resp B/P (MAP) Pulse Ox O2 Delivery O2 Flow Rate FiO2 05/27/18 14:00 63 135/70 05/27/18 13:46 97.9 05/27/18 11:03 18 96 Nasal Cannula 4.0 36 Intake and Output 05/26/18 05/27/18 19:00 07:00 Intake Total 977.416 ml 375.000 ml Output Total 600 ml Balance 977.416 ml -225.000 ml Intake Oral 500 ml 100 ml IV Total 477.416 ml 275.000 ml Output Urine Total 600 ml Objective General: No acute distress, awake and alert, )2 Via NC. HEENT: NCAT, sclera anicteric, PERRL, EOMI. Neck: Supple, no significant jugular venous distention, Lungs: Fair inspiratory effort, decrease air at bases, no Wheeze or Rales. Heart: Irregular rate and rhythm, normal S1/S2, no murmurs Abdomen: soft, nontender, nondistended. Normoactive bowel sounds. Extremities: No Cyanosis , clubbing or edema. Neuro: A&O x 3, Able to move all extremities Skin: warm, no rashes Assessment/Plan Assessment/Plan (1) Paranoid schizophrenia (2) Pneumonia (3) Altered mental status (4) Acute Hypoxemia Respiratory failure (5) History of permanent pacemaker implantation leadless device. (6) Atrial flutter / Fibrillation. (7) Chronic CHF (congestive heart failure) with diastolic dysfunction. (8) COPD (chronic obstructive pulmonary disease) (9) CAD (coronary artery disease) (10) HTN (hypertension) (11) Seizure disorder (12) Sepsis (13) Pleural effusion. (14) Bacteremia staph hominis most likely contamination. Plan: Abx: Vanco IV, Cefepime IV --> completed On Eliquis Full code F/U with labs and cultures, DC Solumedral 40 mg IV Bid DC Planning to SNF today, Yonathan Mendoza MD May 27, 2018 15:24
[2018-05-27 16:00] VITALS: BP 118/80
[2018-05-27] MEDS ORDERED: NS 275ml ONE (18:22)
--- NOTE | 2018-05-27 20:10 | General Progress Note ---
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 (2) Major depression ICD Codes: F32.9 - Major depressive disorder, single episode, unspecified SNOMED: 65301144, 840334990 (3) Schizophrenia ICD Codes: F20.9 - Schizophrenia, unspecified SNOMED: [id number] Assessment/Plan Risperdal 2mg qhs ativan prn raise the head Subjective Neurologic/Psychiatric: Reports: anxiety, depressed Allergies: Coded Allergies: PIPERACILLIN (Unverified Allergy, Unknown, 05/21/18) tolerates cephalosporins TAZOBACTAM (Unverified Allergy, Unknown, 03/10/18) Objective Last 24 Hour Vital Signs Date Time Temp Pulse Resp B/P (MAP) Pulse Ox O2 Delivery O2 Flow Rate FiO2 05/27/18 16:22 64 18 96 Nasal Cannula 4.0 36 05/27/18 16:14 75 20 98 Nasal Cannula 4.0 36 05/27/18 16:00 69 05/27/18 16:00 98.0 72 18 118/80 (93) 95 05/27/18 16:00 Bi-pap 2.0 Nasal Cannula 05/27/18 14:00 63 135/70 05/27/18 13:46 97.9 05/27/18 13:05 63 05/27/18 12:00 97.9 75 18 127/70 (89) 95 05/27/18 12:00 Bi-pap 2.0 Nasal Cannula 05/27/18 11:03 71 18 96 Nasal Cannula 4.0 36 05/27/18 10:56 74 18 97 Nasal Cannula 4.0 36 05/27/18 08:19 63 05/27/18 08:00 Bi-pap 2.0 Nasal Cannula 05/27/18 08:00 97.9 70 18 135/70 (91) 95 05/27/18 07:20 62 18 98 Nasal Cannula 4.0 36 05/27/18 07:13 96 Nasal Cannula 4.0 36 05/27/18 07:13 71 18 96 Nasal Cannula 4.0 36 05/27/18 07:13 Nasal Cannula 4.0 36 05/27/18 06:27 68 141/74 05/27/18 05:53 68 20 94 05/27/18 04:48 60 21 93 Facial 30 05/27/18 04:00 98.1 65 18 141/74 (96) 93 05/27/18 04:00 Bi-pap Bi-pap 05/27/18 04:00 60 05/27/18 03:06 61 20 97 Bi-pap 30 05/27/18 03:01 65 21 94 Facial 30 05/27/18 02:59 68 18 94 Nasal Cannula 3.0 32 05/27/18 01:12 69 20 95 Full Face 30 05/27/18 00:00 69 05/27/18 00:00 Bi-pap Bi-pap 05/27/18 00:00 97.6 69 18 149/71 (97) 96 05/26/18 23:07 76 25 94 Full Face 30 05/26/18 23:03 78 20 98 Nasal Cannula 3.0 32 05/26/18 23:00 35 05/26/18 22:55 81 20 95 Nasal Cannula 3.0 32 05/26/18 21:10 82 158/82 Intake and Output 05/26/18 05/27/18 18:59 06:59 Intake Total 793.708 ml 558.708 ml Output Total 600 ml Balance 793.708 ml -41.292 ml Intake Oral 500 ml 100 ml IV Total 293.708 ml 458.708 ml Output Urine Total 600 ml Height (Feet): 5 Height (Inches): 2.00 Weight (Pounds): 184 General Appearance: no apparent distress, alert, obese Neurologic: oriented x 3, responsive, depressed affect Luiz Morrison MD May 27, 2018 20:10
--- NOTE | 2018-05-28 12:49 | Discharge Summary ---
Discharge Summary Discharge Summary _ DATE OF ADMISSION: 05/19/2018 DATE OF DISCHARGE: 05/27/2018 DISCHARGED BY: Dr. Yonathan Mendoza CONSULTANTS: Dr. Luiz Todd [facility] HOSPITAL COURSE: Patient is a 77-year-old white female, who presented with chief complaint of shortness of breath and altered mental status. Patient has a history of atrial flutter and congestive heart failure. Patient was admitted to [facility] in April 2018. Patient is a resident of rehab center on the previous intermediate facility. According to the staff at rehabilitation on , patient had increased shortness of breath. She also began to have altered mental status. Patient was then transferred to [facility] for further evaluation. On evaluation at the ED, she had decreased breath sounds, she was saturating 100 % on 15 L nonrebreather mask. Blood work showed mild leukocytosis, WBC 11.1, hemoglobin and hematocrit were stable. Potassium was 3.3, sodium 125, chloride 84. BUN was 8 creatinine was 0.5. Lactic acid was normal. BNP was elevated to > 3000. Troponin was negative. ABG showed pH 7.3, PCO2 74, bicarb 36. EKG showed atrial flutter. Chest x-ray with right basilar opacity, combination of pleural fluid and infiltrate, increased from prior imaging. There was a large left pleural effusion, slightly increased from 04/16/2018. Started on BiPAP and respiratory status improved. She was given Lasix and IV potassium. She was started on antibiotics and was admitted to [facility] for evaluation of COPD exacerbation with respiratory distress, acute CHF, hypercapnia and hyponatremia. Patient had respiratory failure, occupational therapy director was consulted. She was continued on BiPAP. He was given nebulizer treatment. Patient was confused and gets agitated intermittently. Psychiatric evaluation was done. She was given Risperdal 2 mg nightly and Ativan as needed. Cardiac evaluation was done. Patient has atrial flutter, echocardiogram done showed ejection fraction 55%, technically difficult with peak gradient of 12 and aortic valve of 1.7, peak mitral valve gradient of 14 and mean of 5, moderate mitral regurgitation, and moderately elevated left ventricular systolic and diastolic dysfunction. There was pulmonary hypertension in the 50s. Overall systolic function appeared to be intact. There was severe left atrial enlargement being documented. Heart rate appeared to be controlled on her usual medications Cardizem as well as amiodarone. She was continued on anticoagulation with Eliquis. She was given Lasix IV. Blood culture showed growth of Staphylococcus hominis. Repeat blood culture did not isolate any growth. Transthoracic echocardiogram did not show any vegetations. Venous duplex was negative for DVT. She was tapered to BiPAP nightly. She was saturating well on nasal cannula during daytime. She completed antibiotic treatment with IV vancomycin and cefepime. Solu-Medrol was tapered. She was discharged back to Rehab center on . FINAL DIAGNOSES: Acute hypoxemic respiratory failure requiring BiPAP Pneumonia Altered mental status/embolic encephalopathy Paranoid schizophrenia Atrial fibrillation/flutter with pacemaker Acute COPD exacerbation Coronary artery disease Hypertension Seizure disorder Pleural effusion Bacteremia with staph hominis, most likely contamination Major depression Acute on chronic diastolic congestive heart failure DISPOSITION: Patient was discharged to a SNF. DISCHARGE MEDICATIONS: Refer to Discharge Medication List. I have been assigned to dictate discharge summary on this account, and I was not involved in the patient's management. Delmi Gutierrez NP May 28, 2018 12:49
== END 2018-05-27 18:23 | DRG 193 ==
LOC: EDBD 20:50 → EMR 21:11 → 2W 21:52 → EDBEDREQSVC 21:54 → EDBEDREQ 21:54 → 2W 05-20 07:54
PROC: 5A09457 Assistance with Respiratory Ventilation, 24-96 Consecutive Hours, Continuous Positive Airway Pressure (ICD-10-PCS; principal; 2018-05-19)
DX: J18.9 Pneumonia, unspecified organism (principal); J96.00 Acute respiratory failure, unspecified whether with hypoxia or hypercapnia; G93.41 Metabolic encephalopathy; J96.01 Acute respiratory failure with hypoxia; I50.33 Acute on chronic diastolic (congestive) heart failure; F20.0 Paranoid schizophrenia; I48.92 Unspecified atrial flutter; J44.1 Chronic obstructive pulmonary disease with (acute) exacerbation; Z95.0 Presence of cardiac pacemaker; I25.10 Atherosclerotic heart disease of native coronary artery without angina pectoris; I11.0 Hypertensive heart disease with heart failure; F32.9 Major depressive disorder, single episode, unspecified; Z79.01 Long term (current) use of anticoagulants; Z88.1 Allergy status to other antibiotic agents; Z95.5 Presence of coronary angioplasty implant and graft; K21.9 Gastro-esophageal reflux disease without esophagitis; Z96.643 Presence of artificial hip joint, bilateral; F10.21 Alcohol dependence, in remission; Z86.718 Personal history of other venous thrombosis and embolism; I48.2 Chronic atrial fibrillation; R56.9 Unspecified convulsions
CPT/HCPCS: 36415; 36600; 71045; 80048; 80053; 80069; 80202; 81003; 82164; 82550; 82553; 82803; 83605; 83880; 84484; 85025; 86710; 87040; 87181; 93005; 93306; 93970; 94640; 94660; 94664; 94760; 96365; 96375; 99291

== ENCOUNTER 2018-06-11 23:34 | Inpatient (IN) | payer MEDICARE, MEDICAID ==
[~2018-06-11] VITALS: Ht 160 cm; Wt 85.7 kg
[~2018-06-11 23:34] MED LIST changes: +ACETAMINOPHEN325 M1 ORAL; +CHLORASEPTIC M1 EACH MM; +CHLORASEPTIC MA30 ML MM
[2018-06-11] MEDS ORDERED: ELIQUIS5 MG PO (23:37)
[2018-06-11 23:45] VITALS: BP 146/67
[2018-06-11] MEDS ORDERED: Solu-MEDROL 125mg Inj IVP ONE (23:45)
[2018-06-11] MEDS ORDERED: Ipratropium 0.02% Inh Soln 2.5ml UD HHN ONE (23:45)
[2018-06-11] MEDS ORDERED: Albuterol ud Inhalation HHN ONE (23:45)
--- NOTE | 2018-06-11 23:45 | NUR ---
ED Nurse Note: Patient presents with altered level of consciousness, unresponsive to commands, lethargic, infrequent eye contact in reponse to voice. Patient has abnormal breathing.
--- NOTE | 2018-06-11 23:51 | Emergency Room Report ---
History of Present Illness General Chief Complaint: Dyspnea/Respdistress Source: Medical Record, EMS Present Illness HPI This is a 77[facility] She has a history of CHF and A. fib. She presents with chief complaint of respiratory distress. Similar presentation in the past. She was hypoxic and hard time breathing. She had decreased mentation. Onset today. She was just here last month for the same. Unable to get any other history from this patient because of her condition. Allergies: Coded Allergies: PIPERACILLIN (Unverified Allergy, Unknown, 05/21/18) tolerates cephalosporins TAZOBACTAM (Unverified Allergy, Unknown, 03/10/18) Patient History Past Medical History: see triage record, old chart reviewed, HTN, AFib Past Surgical History: other Pertinent Family History: none Social History: Denies: smoking Last Menstrual Period: n/a Now: No Immunizations: other Reviewed Nursing Documentation: PMH: Agreed; PSxH: Agreed Nursing Documentation-PMH Past Medical History: No History, Except For Hx Cardiac Problems: Yes - CHF Hx Hypertension: Yes Hx Pacemaker: Yes - stent Hx Asthma: No Hx COPD: Yes Hx Diabetes: No Hx Cancer: No Hx Gastrointestinal Problems: Yes - gerd Hx Dialysis: No Hx Neurological Problems: Yes Hx Cerebrovascular Accident: Yes Hx Dementia: Yes Hx Seizures: Yes Hx Epilepsy: Yes Hx Tremors: Yes Hx Vertigo: Yes Hx Dizziness: Yes Hx Syncope: Yes Hx Headaches: Yes - occasional Hx Weakness: Yes Hx Fatigue: Yes Review of Systems Eye: Denies: eye pain, blurred vision ENT: Denies: ear pain, nose congestion, throat swelling Respiratory: Reports: shortness of breath; Denies: cough Cardiovascular: Denies: chest pain, palpitations Gastrointestinal: Denies: abdominal pain, diarrhea, nausea, vomiting Musculoskeletal: Denies: back pain, joint pain Skin: Denies: rash Neurological: Denies: headache, numbness Endocrine: Denies: increased thirst, increased urine Hematologic/Lymphatic: Denies: easy bruising All Other Systems: limited - Secondary to condition Physical Exam Vital Signs Date Time Temp Pulse Resp B/P (MAP) Pulse Ox O2 Delivery O2 Flow Rate FiO2 06/11/18 23:32 98.4 75 18 146/67 96 Bi-pap 10.0 hypoxic Sp02 EP Interpretation: reviewed, normal General Appearance: moderate distress, Chronically Ill, Stupor Head: normocephalic, atraumatic Eyes: bilateral eye PERRL, bilateral eye EOMI ENT: hearing grossly normal, normal pharynx Neck: full range of motion, supple, no meningismus Respiratory: chest non-tender, respiratory distress, decreased breath sounds, accessory muscle use, rales Cardiovascular #1: no murmur, irregularly irregular Gastrointestinal: normal bowel sounds, non tender, no mass, no organomegaly, no bruit, non-distended Musculoskeletal: back normal, swelling Psychiatric: mood/affect normal Skin: warm/dry Procedures Critical Care Time Critical Care Time Critical care is mandated in this patient who presented with acute on chronic respiratory failure. Patient require my urgent intervention to attenuate the risks of respiratory collapse which may lead to cardiovascular collapse and . Critical care time is 35 minutes excluding any reportable procedure. Critical care time included evaluation, multiple reevaluation, looking at old charts, interpreting laboratory and diagnostic data, discussing case with patient and family and consultants, and charting. Medical Decision Making Diagnostic Impression: Primary Impression: Respiratory failure Qualified Codes: J96.21 - Acute and chronic respiratory failure with hypoxia; J96.22 - Acute and chronic respiratory failure with hypercapnia Additional Impressions: Acute diastolic CHF (congestive heart failure) COPD (chronic obstructive pulmonary disease) Qualified Codes: J44.9 - Chronic obstructive pulmonary disease, unspecified Acute encephalopathy Proteinuria Qualified Codes: R80.9 - Proteinuria, unspecified Anemia, chronic disease ER Course Patient with acute on chronic respiratory failure. She was very hypoxic and hypercapnic. She was only on the BiPAP for less than one hour when she started coming more alert and moving around. I suspect that she has sleep apnea with very high bicarbonate to begin with. Even though her CO2 was very high she was not extremely acidotic. Currently improving greatly on BiPAP. We'll continue with this. I see no need for intubation at this moment in time. She was given Lasix for CHF. I contacted Dr. Mendoza for admission. Lab Results Impression labs with elevated BNP EKG Diagnostic Results Rate: normal Rhythm: other - A. fib ST Segments: other - Nonspecific ST change Rhythm Strip Diag. Results EP Interpretation: yes Rate: 64 Rhythm: no PVC's, no ectopy, other - A. fib Chest X-Ray Diagnostic Results Chest X-Ray Diagnostic Results : Chest X-Ray Ordered: Yes # of Views/Limited/Complete: 1 View Indication: Shortness of Breath EP Interpretation: Yes Interpretation: no consolidation, no pneumothorax, other - Right-sided Plural effusion and CHF Impression: Other - rt pleural effusion Electronically Signed by: Wild Go MD Last Vital Signs Date Time Temp Pulse Resp B/P (MAP) Pulse Ox O2 Delivery O2 Flow Rate FiO2 06/11/18 23:32 98.4 75 18 146/67 96 Bi-pap 10.0 Status: improved Disposition: ADMITTED INPATIENT Condition: Critical Wild Go MD Jun 11, 2018 23:51
[2018-06-12 00:01] LABS: HEMATOCRIT 35.7 % (37.0-47.0); HEMOGLOBIN 11.5 G/DL (12.0-16.0); MEAN CORPUSCULAR VOLUME 88 FL (80-99); PLATELET COUNT 206 K/UL (150-450); RED BLOOD COUNT 4.04 M/UL (4.20-5.40); RED CELL DISTRIBUTION WIDTH 17.4 % (11.6-14.8); WHITE BLOOD COUNT 9.3 K/UL (4.8-10.8)
[2018-06-12 00:13] LABS: INR 1.1 (0.9-1.1)
[2018-06-12 00:25] LABS: ALANINE AMINOTRANSFERASE 16 U/L (12-78); ALBUMIN 3.2 G/DL (3.4-5.0); ALBUMIN/GLOBULIN RATIO 0.8 (1.0-2.7); ALKALINE PHOSPHATASE 74 U/L (46-116); ANION GAP -2 mmol/L (5-15); ASPARTATE AMINO TRANSFERASE 18 U/L (15-37); BILIRUBIN,TOTAL 0.5 MG/DL (0.2-1.0); BLOOD UREA NITROGEN 11 mg/dL (7-18); CALCIUM 8.9 MG/DL (8.5-10.1); CHLORIDE 92 MMOL/L (98-107); CKMB 2.2 NG/ML (0.0-3.6); CREATINE KINASE 29 U/L (26-308); CREATININE 0.7 MG/DL (0.55-1.30); POTASSIUM 4.6 MMOL/L (3.5-5.1); SODIUM 135 MMOL/L (136-145)
[2018-06-12 00:28] LABS: CARBON DIOXIDE 44 MMOL/L (21-32)
[2018-06-12 00:56] LABS: APPEARANCE,URINE CLEAR; BILIRUBIN, URINE NEGATIVE (NEGATIVE); COLOR,URINE PALE YELLOW; GLUCOSE, URINE (UA) NEGATIVE (NEGATIVE); KETONES,URINE NEGATIVE (NEGATIVE); LEUKOCYTE ESTERASE ,URINE NEGATIVE (NEGATIVE); NITRITE,URINE NEGATIVE (NEGATIVE); PH,URINE 5 (4.5-8.0); PROTEIN,URINE 3+ (NEGATIVE); UROBILINOGEN,URINE NORMAL MG/DL (0.0-1.0)
--- NOTE | 2018-06-12 00:59 | NUR ---
ED Nurse Note: Patient tolerating Bipap machine. vital signs stable. Patient LOC increasing in waves. Patient still non-verbal.
--- NOTE | 2018-06-12 01:52 | NUR ---
ED Nurse Note: Patient tolerating Bipap machine well.
[2018-06-12 02:43] VITALS: BP 115/80
--- NOTE | 2018-06-12 03:30 | NUR ---
ED Nurse Note: Patient awake and more alert, closer to basline level of consciousness.
--- NOTE | 2018-06-12 04:00 | NUR ---
ED Nurse Note: Attempted to call in to give report for transport. was able to give report but unable to to transport due to room shuffles. Will call again to assess readiness to receive patient.
--- NOTE | 2018-06-12 05:15 | NUR ---
ED Nurse Note: Report called into Bill RN, prior to transport. Patient is far more alert than upon arrival. Patient is able to verbalize clearly, nio s/s of acute distress during transport or before on non-rebreather mask. vss. Patient accompanied by RN and ER-tech during transport.
--- NOTE | 2018-06-12 05:30 | NUR ---
NURSE NOTES: Patient arrived to SDU Room 238-2 via gurney.accompanied by 2 ED staff members. patient is awake, alert able to communicate but agitated. on BiPAP 20/5 FIO2 70% back up rate 16. o2 saturation 100%.no sign of respiratory distress noted.SR w/ 1st AVB on the monitor.BP145/51 HR 74 RR 18 Temp 96.6F.Denies any pain at this time.skin body assessment done. has small open wound on right buttock and skin tear on rt forearm with dressing. pictures taken in ED. given hospital orientation . bed in locked and lowest position for safety. call light in reach, bed alarm on.will continue to monitor .
[2018-06-12] MEDS ORDERED: ELIQUIS5 MG PO (06:45)
[2018-06-12] MEDS ORDERED: MIRTAZAPINE15 MG ORAL (06:45)
[2018-06-12] MEDS ORDERED: ZOFRAN4 M3 ORAL (06:45)
[2018-06-12] MEDS ORDERED: ROBITUSSIN NIG237 ML PO (06:45)
[2018-06-12] MEDS ORDERED: AMBIEN5 MG ORAL (06:45)
[2018-06-12] MEDS ORDERED: RISPERDAL2 MG ORAL (06:45)
[2018-06-12] MEDS ORDERED: ZESTRIL5 MG ORAL (06:45)
[2018-06-12] MEDS ORDERED: CARDIZEM30 M1 PO (06:45)
[2018-06-12] MEDS ORDERED: AMIODARONE HCL400 M1 ORAL (06:45)
[2018-06-12] MEDS ORDERED: MIRALAX17 G2 ORAL (06:45)
[2018-06-12] MEDS ORDERED: MEDROL4 MG ORAL (06:45)
[2018-06-12] MEDS ORDERED: ACETAMINOPHEN325 M1 ORAL (06:45)
[2018-06-12] MEDS ORDERED: ACETAMINOPHEN-1 EAC1 ORAL (06:45)
[2018-06-12] MEDS ORDERED: IPRATROPIU0.2 MG/1 M HHN (06:45)
[2018-06-12] MEDS ORDERED: FUROSEMIDE40 MG ORAL (06:45)
[2018-06-12] MEDS ORDERED: POTASSIUM CHLO10 MEQ ORAL (06:45)
[2018-06-12] MEDS ORDERED: GUAIFENESI100 MG/5 M ORAL (06:45)
[2018-06-12] MEDS ORDERED: DUONEB 0.5-3(2.53 ML HHN (06:45)
[2018-06-12] MEDS ORDERED: Miralax 17gm pkt ORAL PRN (07:15)
[2018-06-12] MEDS ORDERED: Albuterol/Ipratropium 3ml neb HHN PRN (07:15)
--- NOTE | 2018-06-12 07:15 | NUR ---
NURSE NOTES: RECEIVED BED SIDE REPORT FROM LISA ENAMEL DIPPER OF NOC SHIFT.RECEIVED PT WITH HOB ELEVATED 45 DEGREE .PT USING BIPAP SETTINGS 20/5 AND FIO2 70%,PT SATURATING 100% AT THIS TIME.PT REPOSITIONED IN BED TO PROVIDE COMFORT AND TO PREVENT FURTHERS SKIN BREAK DOWN.FULL BODY ASSESSMENT DONE.PT UNABLE TO EAT DUE TO LOW SATURATION ON 4L/MINTS VIA N/C 86%.PT PLACED BACK ON BIPAP ,PT NEEDS TO BE INSTRUCTED AT ALL THE TIME NOT TO REMOVED THE BIPAP.PT REMAINS FREE OF INJURIES.WILL CONT TO MONITOR.
[2018-06-12 08:00] VITALS: BP 115/67
--- NOTE | 2018-06-12 08:20 | NUR ---
HAND-OFF: Report given to JEWEL GOMEZ RN using SBAR.
[2018-06-12] MEDS: Heparin 5000 units/ml inj SUBQ SCH ×2 (10:06→21:45)
--- NOTE | 2018-06-12 10:48 | Consultation ---
History of Present Illness General Date patient seen: Jun 12, 2018 Chief Complaint: Dyspnea/Respdistress Present Illness HPI 77-year-old female, history of hypertension, COPD, atrial flutter, seizure disorder, depression/schizophrenia, history of alcohol abuse, wheelchair bound, ETOH abuse in the past, coming from [facility] for dyspnea. Patient was found to have acute pulmonary edema and was started on BIPAP and admitted to [facility] for further work up. she is somnolent now and seem to be tolerating BIPAP very well. Allergies: Coded Allergies: PIPERACILLIN (Unverified Allergy, Unknown, 05/21/18) tolerates cephalosporins TAZOBACTAM (Unverified Allergy, Unknown, 03/10/18) Medication History Scheduled Amiodarone Hcl* (Pacerone*), 200 MG ORAL DAILY Amiodarone Hcl* (Amiodarone Hcl*), 400 MG ORAL DAILY, (Reported) Apixaban (Eliquis), 5 MG ORAL BID Apixaban (Eliquis), 5 MG PO EVERY 12 HOURS, (Reported) Diltiazem HCl (Diltiazem HCl), 90 MG ORAL Q8HR Diltiazem Hcl* (Cardizem*), 90 MG PO Q8HR, (Reported) Furosemide* (Lasix*), 40 MG ORAL DAILY, (Reported) Furosemide* (Lasix*), 40 MG ORAL TWICE A DAY Furosemide* (Lasix*), 40 MG ORAL DAILY, (Reported) Guaifenesin* (Guaifenesin), 5 ML ORAL Q6H, (Reported) Lisinopril (Lisinopril*), 5 MG ORAL DAILY, (Reported) Lisinopril* (Zestril*), 5 MG ORAL DAILY, (Reported) Methylprednisolone* (Medrol*), 40 MG ORAL Q12HR, (Reported) Mirtazapine* (Mirtazapine*), 15 MG ORAL BEDTIME Mirtazapine* (Remeron*), 15 MG ORAL BEDTIME, (Reported) Pantoprazole* (Protonix*), 40 MG ORAL EVERY 12 HOURS Potassium Chloride (Potassium Chloride), 10 MEQ ORAL DAILY, (Reported) Potassium Chloride* (K-Dur*), 10 MEQ ORAL DAILY, (Reported) Risperidone* (Risperdal*), 2 MG ORAL BEDTIME Risperidone* (Risperdal*), 2 MG ORAL BEDTIME Scheduled PRN Acetaminophen With Codeine (T#3) (Tylenol #3 Tab*), 1 TAB ORAL Q4H PRN for For Pain, (Reported) Acetaminophen With Codeine (T#3) (Tylenol #3 Tab*), 1 TAB ORAL Q4H PRN for Severe Pain (Pain Scale 7-10), (Reported) Acetaminophen* (Acetaminophen 325MG Tablet*), 325 MG ORAL Q4H PRN for Fever/ Headache/Mild Pain, (Reported) Acetaminophen* (Acetaminophen 325MG Tablet*), 650 MG ORAL Q4H PRN for Mild Pain (Pain Scale 1-3), (Reported) Acetaminophen* (Acetaminophen 325MG Tablet*), 325 MG ORAL Q4H PRN for Prn Headache/Temp > 101, (Reported) Dextromethorphan Hb/Doxylamine (Robitussin Nighttime Cough Dm), 200 MG PO Q4HR PRN for For Cough, (Reported) Guaifenesin* (Guaifenesin), 5 ML ORAL Q6H PRN for For Cough, (Reported) Ipratropium [place] 0.5MG/2.5ML (Ipratropium [place] 0.5MG/2.5ML), 0.5 MG HHN Q8HR PRN for Shortness of breath, (Reported) Ipratropium/Albuterol Sulfate (DuoNeb 0.5-3(2.5)mg/3ml), 3 ML HHN Q4HR PRN for Shortness of breath, (Reported) Ondansetron* (Zofran*), 4 MG ORAL Q6H PRN for Nausea & Vomiting, (Reported) Polyethylene Glycol 3350* (Miralax*), 17 GM ORAL DAILY PRN for Abdominal cramps, (Reported) Risperidone* (Risperdal*), 2 MG ORAL HS PRN for Agitation, (Reported) Zolpidem Tartrate* (Ambien*), 5 MG ORAL BEDTIME PRN for Insomnia, (Reported) Zolpidem Tartrate* (Ambien*), 5 MG ORAL BEDTIME PRN for Insomnia, (Reported) Miscellaneous Medications Apixaban (Eliquis), 5 MG PO, (Reported) Benzocaine/Menthol (Chloraseptic Max Lozenge), 1 EACH MM, (Reported) Ipratropium/Albuterol Sulfate (DuoNeb 0.5-3(2.5)mg/3ml), 3 ML HHN, (Reported) Phenol/Glycerin (Chloraseptic Max Disney), 30 ML MM, (Reported) Patient History Healthcare decision maker Resuscitation status Full Code Advanced Directive on File Past Medical/Surgical History Past Medical/Surgical History: (1) Paranoid schizophrenia (2) HTN (hypertension) (3) CAD (coronary artery disease) (4) Dementia (5) Seizure disorder (6) H/O ETOH abuse (7) COPD (chronic obstructive pulmonary disease) (8) Deep vein thrombosis (DVT) of left lower extremity (9) Wheelchair bound (10) Major depression Review of Systems All Other Systems: negative except mentioned in HPI Physical Exam General Appearance: WD/WN Lines, tubes and drains: peripheral HEENT: normocephalic, atraumatic Neck: non-tender, normal alignment Respiratory/Chest: rhonchi - left, rhonchi - right Cardiovascular/Chest: normal peripheral pulses, no gallop/murmur Abdomen: normal bowel sounds, non tender Genitourinary/Rectal: normal genital exam, normal prostate exam Extremities: normal range of motion Skin Exam: normal pigmentation 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 Last 24 Hour Vital Signs Date Time Temp Pulse Resp B/P (MAP) Pulse Ox O2 Delivery O2 Flow Rate FiO2 06/12/18 08:46 98 35 96 Facial 100 06/12/18 08:00 97.7 106 33 115/67 (83) 100 06/12/18 06:00 70 06/12/18 05:43 92 06/12/18 05:40 Bi-pap 06/12/18 05:07 71 30 97 Facial 70 06/12/18 05:00 98.4 62 23 115/80 100 10.0 70 06/12/18 03:00 66 23 100 Facial 70 06/12/18 02:43 98.4 62 23 115/80 100 10.0 70 06/12/18 01:30 68 27 100 Facial 70 06/12/18 00:09 68 21 100 Bi-pap 100 06/11/18 23:53 75 28 Bi-pap 100 06/11/18 23:52 72 28 97 Bi-pap 100 06/11/18 23:50 72 28 99 Facial 100 06/11/18 23:45 98.4 87 18 146/67 96 Bi-pap 10.0 06/11/18 23:45 75 18 Bi-pap 10.0 06/11/18 23:42 4.0 70 06/11/18 23:32 98.4 75 18 146/67 96 Bi-pap 10.0 Intake and Output 06/11/18 06/12/18 19:00 07:00 Intake Total 0 ml Output Total 1000 ml Balance -1000 ml Intake Oral 0 ml Output Urine Total 1000 ml Laboratory Tests Test 06/11/18 23:40 06/11/18 23:45 06/12/18 00:35 06/12/18 01:14 Arterial Blood pH 7.100 (7.350-7.450) 7.138 (7.350-7.450) Arterial Blood Partial Pressure CO2 178.1 mmHg (35.0-45.0) *H 161.1 mmHg (35.0-45.0) *H Arterial Blood Partial Pressure O2 126.9 mmHg (75.0-100.0) H 297.8 mmHg (75.0-100.0) H Arterial Blood HCO3 54.1 mmol/L (22.0-26.0) *H 53.4 mmol/L (22.0-26.0) *H Arterial Blood Oxygen Saturation 97.6 % (95-100) 99.3 % (95-100) Arterial Blood Base Excess 18.3 (-2-2) *H 18.6 (-2-2) *H Ian Test Positive Positive White Blood Count 9.3 K/UL (4.8-10.8) Red Blood Count 4.04 M/UL (4.20-5.40) L Hemoglobin 11.5 G/DL (12.0-16.0) L Hematocrit 35.7 % (37.0-47.0) L Mean Corpuscular Volume 88 FL (80-99) Mean Corpuscular Hemoglobin 28.5 PG (27.0-31.0) Mean Corpuscular Hemoglobin Concent 32.2 G/DL (32.0-36.0) Red Cell Distribution Width 17.4 % (11.6-14.8) H Platelet Count 206 K/UL (150-450) Mean Platelet Volume 8.7 FL (6.5-10.1) Neutrophils (%) (Auto) % (45.0-75.0) Lymphocytes (%) (Auto) % (20.0-45.0) Monocytes (%) (Auto) % (1.0-10.0) Eosinophils (%) (Auto) % (0.0-3.0) Basophils (%) (Auto) % (0.0-2.0) Prothrombin Time 11.1 SEC (9.30-11.50) Prothromb Time International Ratio 1.1 (0.9-1.1) Activated Partial Thromboplast Time 33 SEC (23-33) Sodium Level 135 MMOL/L (136-145) L Potassium Level 4.6 MMOL/L (3.5-5.1) Chloride Level 92 MMOL/L (98-107) L Carbon Dioxide Level 44 MMOL/L (21-32) *H Anion Gap -2 mmol/L (5-15) L Blood Urea Nitrogen 11 mg/dL (7-18) Creatinine 0.7 MG/DL (0.55-1.30) Estimat Glomerular Filtration Rate mL/min (>60) Glucose Level 205 MG/DL (74-106) H Calcium Level 8.9 MG/DL (8.5-10.1) Total Bilirubin 0.5 MG/DL (0.2-1.0) Aspartate Amino Transf (AST/SGOT) 18 U/L (15-37) Alanine Aminotransferase (ALT/SGPT) 16 U/L (12-78) Alkaline Phosphatase 74 U/L (46-116) Total Creatine Kinase 29 U/L (26-308) Creatine Kinase MB 2.2 NG/ML (0.0-3.6) Creatine Kinase MB Relative Index 7.5 Troponin I 0.018 ng/mL (0.000-0.056) Pro-B-Type Natriuretic Peptide 6705 pg/mL (0-125) H Total Protein 7.1 G/DL (6.4-8.2) Albumin 3.2 G/DL (3.4-5.0) L Globulin 3.9 g/dL Albumin/Globulin Ratio 0.8 (1.0-2.7) L Urine Color Pale yellow Urine Appearance Clear Urine pH 5 (4.5-8.0) Urine Specific [place] 1.020 (1.005-1.035) Urine Protein 3+ (NEGATIVE) H Urine Glucose (UA) Negative (NEGATIVE) Urine Ketones Negative (NEGATIVE) Urine Blood 1+ (NEGATIVE) H Urine Nitrite Negative (NEGATIVE) Urine Bilirubin Negative (NEGATIVE) Urine Urobilinogen Normal MG/DL (0.0-1.0) Urine Leukocyte Esterase Negative (NEGATIVE) Urine RBC 0-2 /HPF (0 - 2) Urine WBC 0-2 /HPF (0 - 2) Urine Squamous Epithelial Cells Few /LPF (NONE/OCC) Urine Bacteria Few /HPF (NONE) Urine Hyaline Casts 0-2 /LPF (NONE) H Test 06/12/18 02:42 06/12/18 09:10 Arterial Blood pH 7.269 (7.350-7.450) Arterial Blood Partial Pressure CO2 92.4 mmHg (35.0-45.0) *H Arterial Blood Partial Pressure O2 91.4 mmHg (75.0-100.0) Arterial Blood HCO3 41.4 mmol/L (22.0-26.0) *H Arterial Blood Oxygen Saturation 96.5 % (95-100) Arterial Blood Base Excess 11.5 (-2-2) *H Ian Test Positive Troponin I Pending Microbiology Date/Time Source Procedure Growth Status 06/12/18 00:55 Rectum Received Height (Feet): 5 Height (Inches): 3.00 Weight (Pounds): 187 Medications Current Medications Medications (Trade) Dose Ordered Sig/Ibrahima Route PRN Reason Start Time Stop Time Status Last Admin Dose Admin Acetaminophen (Tylenol) 650 mg Q4H PRN ORAL Fever 06/12/18 07:15 07/12/18 07:14 Albuterol/ Ipratropium (Albuterol/ Ipratropium) 3 ml Q4H PRN HHN Shortness of Breath 06/12/18 07:15 06/17/18 07:14 Dextrose (Dextrose 50%) 25 ml Q30M PRN IV Hypoglycemia 06/12/18 07:15 07/12/18 07:14 Dextrose (Dextrose 50%) 50 ml Q30M PRN IV Hypoglycemia 06/12/18 07:15 07/12/18 07:14 Furosemide (Lasix) 40 mg EVERY 8 HOURS IV 06/12/18 14:00 07/12/18 13:59 Heparin Sodium (Porcine) (Heparin 5000 units/ml) 5,000 units EVERY 12 HOURS SUBQ 06/12/18 09:00 07/12/18 08:59 06/12/18 10:06 Ondansetron HCl (Zofran) 4 mg Q6H PRN IVP Nausea & Vomiting 06/12/18 07:15 07/12/18 07:14 Polyethylene Glycol (Miralax) 17 gm DAILYPRN PRN ORAL Constipation 06/12/18 07:15 07/12/18 07:14 Temazepam (Restoril) 15 mg HSPRN PRN ORAL Insomnia 06/12/18 07:15 06/19/18 07:14 Assessment/Plan Problem List: (1) Respiratory failure, acute ICD Codes: J96.00 - Acute respiratory failure, unspecified whether with hypoxia or hypercapnia SNOMED: 03578929 (2) Acute encephalopathy ICD Codes: G93.40 - Encephalopathy, unspecified SNOMED: 7535333 (3) COPD (chronic obstructive pulmonary disease) ICD Codes: J44.9 - Chronic obstructive pulmonary disease, unspecified SNOMED: 33041006 Qualifiers: Qualified Codes: J44.9 - Chronic obstructive pulmonary disease, unspecified (4) Acute diastolic CHF (congestive heart failure) ICD Codes: I50.31 - Acute diastolic congestive heart failure SNOMED: 424229959 (5) Pulmonary edema ICD Codes: J81.1 - Pulmonary edema SNOMED: 19885077 (6) CAD (coronary artery disease) ICD Codes: I25.10 - Atherosclerosis of coronary artery SNOMED: 606489276 (7) Dementia ICD Codes: F03.90 - Dementia SNOMED: 17329956 (8) Seizure disorder ICD Codes: G40.909 - Seizure disorder SNOMED: 245553511 Assessment/Plan titrate bipap lasix IV check electrolytes check CXR and BNP daily titrate fio2 to sat of 92% monitor Heart rate cardiology to follow. DVT prophylaxis symptomatic treatment start oral feeding once dyspnea under control Mendel Sierra MD Jun 12, 2018 10:48
--- NOTE | 2018-06-12 11:31 | Diagnostic Imaging Report ---
Indication: Dyspnea Comparison: 05/26/2018 A single view chest radiograph was obtained. Findings: Interstitial edema demonstrated. Hazy opacity involving the right lung is likely a pleural effusion. Cardiomegaly is present. There is dense calcification projected over the heart which may be calcified mitral annulus. Aorta is also moderately calcified. IMPRESSION: CHF/interstitial edema. Suspected bilateral pleural effusions
--- NOTE | 2018-06-12 12:25 | NUR ---
RD ASSESSMENT & RECOMMENDATIONS SEE CARE ACTIVITY FOR COMPLETE ASSESSMENT DAILY ESTIMATED NEEDS: Needs based on Pulmonary, Cardiac/ 55kg abw 25-30 kcals/kg 3035-8155 total kcals 1-1.5 g protein/kg 55-83 g total protein 20-25 mL/kg 8034-7278 total fluid mLs NUTRITION DIAGNOSIS: * Altered nutrition related lab values R/T respiratory status, cardiac h/o, clinical condition as evidenced by elev BG (205), elev BNP (6705), critically elev CO2 (44), critically elev PCO2 and HCO3, trending down. * Increased protein and micronutrients intake needs R/T wound healing as evidenced by pt admitted w/ rt buttock stage 2 wound. CURRENT DIET:RENAL PO DIET RECOMMENDATIONS: CCHO MED, LOW NA/ texture as tolerated ADDITIONAL RECOMMENDATIONS: * Calibrated bedscale wt for accurate CBW -daily wts per policy: CHF dx * A1C for eval of glycemic control * Wound healing: add MVI x 1, Vit C 500mg QD, Cristian 1pkt BID * Monitor for ability to eat, PO acceptance and tolerance- on BIPAP * Monitor lytes daily while on lasix, replete as needed .
[2018-06-12 12:33] VITALS: BP 141/62
--- NOTE | 2018-06-12 15:25 | Consultation ---
History of Present Illness General Chief Complaint: Dyspnea/Respdistress Present Illness HPI 77-year-old female who has a history of CHF and A. fib, schizophrenia, depression and dementia who is admitted for respiratory distress. the pt was lethargic and has episodes of agitation. the pt has cognitive impairment at baseline. she is on bipap. Allergies: Coded Allergies: PIPERACILLIN (Unverified Allergy, Unknown, 05/21/18) tolerates cephalosporins TAZOBACTAM (Unverified Allergy, Unknown, 03/10/18) Medication History Scheduled Amiodarone Hcl* (Pacerone*), 200 MG ORAL DAILY Amiodarone Hcl* (Amiodarone Hcl*), 400 MG ORAL DAILY, (Reported) Apixaban (Eliquis), 5 MG ORAL BID Apixaban (Eliquis), 5 MG PO EVERY 12 HOURS, (Reported) Diltiazem HCl (Diltiazem HCl), 90 MG ORAL Q8HR Diltiazem Hcl* (Cardizem*), 90 MG PO Q8HR, (Reported) Furosemide* (Lasix*), 40 MG ORAL DAILY, (Reported) Furosemide* (Lasix*), 40 MG ORAL TWICE A DAY Furosemide* (Lasix*), 40 MG ORAL DAILY, (Reported) Guaifenesin* (Guaifenesin), 5 ML ORAL Q6H, (Reported) Lisinopril (Lisinopril*), 5 MG ORAL DAILY, (Reported) Lisinopril* (Zestril*), 5 MG ORAL DAILY, (Reported) Methylprednisolone* (Medrol*), 40 MG ORAL Q12HR, (Reported) Mirtazapine* (Mirtazapine*), 15 MG ORAL BEDTIME Mirtazapine* (Remeron*), 15 MG ORAL BEDTIME, (Reported) Pantoprazole* (Protonix*), 40 MG ORAL EVERY 12 HOURS Potassium Chloride (Potassium Chloride), 10 MEQ ORAL DAILY, (Reported) Potassium Chloride* (K-Dur*), 10 MEQ ORAL DAILY, (Reported) Risperidone* (Risperdal*), 2 MG ORAL BEDTIME Risperidone* (Risperdal*), 2 MG ORAL BEDTIME Scheduled PRN Acetaminophen With Codeine (T#3) (Tylenol #3 Tab*), 1 TAB ORAL Q4H PRN for For Pain, (Reported) Acetaminophen With Codeine (T#3) (Tylenol #3 Tab*), 1 TAB ORAL Q4H PRN for Severe Pain (Pain Scale 7-10), (Reported) Acetaminophen* (Acetaminophen 325MG Tablet*), 325 MG ORAL Q4H PRN for Fever/ Headache/Mild Pain, (Reported) Acetaminophen* (Acetaminophen 325MG Tablet*), 650 MG ORAL Q4H PRN for Mild Pain (Pain Scale 1-3), (Reported) Acetaminophen* (Acetaminophen 325MG Tablet*), 325 MG ORAL Q4H PRN for Prn Headache/Temp > 101, (Reported) Dextromethorphan Hb/Doxylamine (Robitussin Nighttime Cough Dm), 200 MG PO Q4HR PRN for For Cough, (Reported) Guaifenesin* (Guaifenesin), 5 ML ORAL Q6H PRN for For Cough, (Reported) Ipratropium [place] 0.5MG/2.5ML (Ipratropium [place] 0.5MG/2.5ML), 0.5 MG HHN Q8HR PRN for Shortness of breath, (Reported) Ipratropium/Albuterol Sulfate (DuoNeb 0.5-3(2.5)mg/3ml), 3 ML HHN Q4HR PRN for Shortness of breath, (Reported) Ondansetron* (Zofran*), 4 MG ORAL Q6H PRN for Nausea & Vomiting, (Reported) Polyethylene Glycol 3350* (Miralax*), 17 GM ORAL DAILY PRN for Abdominal cramps, (Reported) Risperidone* (Risperdal*), 2 MG ORAL HS PRN for Agitation, (Reported) Zolpidem Tartrate* (Ambien*), 5 MG ORAL BEDTIME PRN for Insomnia, (Reported) Zolpidem Tartrate* (Ambien*), 5 MG ORAL BEDTIME PRN for Insomnia, (Reported) Miscellaneous Medications Apixaban (Eliquis), 5 MG PO, (Reported) Benzocaine/Menthol (Chloraseptic Max Lozenge), 1 EACH MM, (Reported) Ipratropium/Albuterol Sulfate (DuoNeb 0.5-3(2.5)mg/3ml), 3 ML HHN, (Reported) Phenol/Glycerin (Chloraseptic Max [place]), 30 ML MM, (Reported) Patient History Healthcare decision maker Resuscitation status Full Code Advanced Directive on File Review of Systems Psychiatric: Reports: prior hx, anxiety, depressed feelings, emotional problems , hallucinations Physical Exam General Appearance: lethargic, confused, agitated Last 24 Hour Vital Signs Date Time Temp Pulse Resp B/P (MAP) Pulse Ox O2 Delivery O2 Flow Rate FiO2 06/12/18 13:24 88 30 100 Facial 50 06/12/18 12:33 98.4 84 24 141/62 (88) 100 06/12/18 12:00 85 06/12/18 12:00 70 06/12/18 10:44 84 32 97 Facial 100 06/12/18 08:46 98 35 96 Facial 100 06/12/18 08:00 70 06/12/18 08:00 97.7 106 33 115/67 (83) 100 06/12/18 08:00 77 06/12/18 06:00 70 06/12/18 05:43 92 06/12/18 05:40 Bi-pap 06/12/18 05:07 71 30 97 Facial 70 06/12/18 05:00 98.4 62 23 115/80 100 10.0 70 06/12/18 03:00 66 23 100 Facial 70 06/12/18 02:43 98.4 62 23 115/80 100 10.0 70 06/12/18 01:30 68 27 100 Facial 70 06/12/18 00:09 68 21 100 Bi-pap 100 06/11/18 23:53 75 28 Bi-pap 100 06/11/18 23:52 72 28 97 Bi-pap 100 06/11/18 23:50 72 28 99 Facial 100 06/11/18 23:45 98.4 87 18 146/67 96 Bi-pap 10.0 06/11/18 23:45 75 18 Bi-pap 10.0 06/11/18 23:42 4.0 70 06/11/18 23:32 98.4 75 18 146/67 96 Bi-pap 10.0 Intake and Output 06/11/18 06/12/18 19:00 07:00 Intake Total 0 ml Output Total 1000 ml Balance -1000 ml Intake Oral 0 ml Output Urine Total 1000 ml Laboratory Tests Test 06/11/18 23:40 06/11/18 23:45 06/12/18 00:35 06/12/18 01:14 Arterial Blood pH 7.100 (7.350-7.450) 7.138 (7.350-7.450) Arterial Blood Partial Pressure CO2 178.1 mmHg (35.0-45.0) *H 161.1 mmHg (35.0-45.0) *H Arterial Blood Partial Pressure O2 126.9 mmHg (75.0-100.0) H 297.8 mmHg (75.0-100.0) H Arterial Blood HCO3 54.1 mmol/L (22.0-26.0) *H 53.4 mmol/L (22.0-26.0) *H Arterial Blood Oxygen Saturation 97.6 % (95-100) 99.3 % (95-100) Arterial Blood Base Excess 18.3 (-2-2) *H 18.6 (-2-2) *H Ian Test Positive Positive White Blood Count 9.3 K/UL (4.8-10.8) Red Blood Count 4.04 M/UL (4.20-5.40) L Hemoglobin 11.5 G/DL (12.0-16.0) L Hematocrit 35.7 % (37.0-47.0) L Mean Corpuscular Volume 88 FL (80-99) Mean Corpuscular Hemoglobin 28.5 PG (27.0-31.0) Mean Corpuscular Hemoglobin Concent 32.2 G/DL (32.0-36.0) Red Cell Distribution Width 17.4 % (11.6-14.8) H Platelet Count 206 K/UL (150-450) Mean Platelet Volume 8.7 FL (6.5-10.1) Neutrophils (%) (Auto) % (45.0-75.0) Lymphocytes (%) (Auto) % (20.0-45.0) Monocytes (%) (Auto) % (1.0-10.0) Eosinophils (%) (Auto) % (0.0-3.0) Basophils (%) (Auto) % (0.0-2.0) Prothrombin Time 11.1 SEC (9.30-11.50) Prothromb Time International Ratio 1.1 (0.9-1.1) Activated Partial Thromboplast Time 33 SEC (23-33) Sodium Level 135 MMOL/L (136-145) L Potassium Level 4.6 MMOL/L (3.5-5.1) Chloride Level 92 MMOL/L (98-107) L Carbon Dioxide Level 44 MMOL/L (21-32) *H Anion Gap -2 mmol/L (5-15) L Blood Urea Nitrogen 11 mg/dL (7-18) Creatinine 0.7 MG/DL (0.55-1.30) Estimat Glomerular Filtration Rate mL/min (>60) Glucose Level 205 MG/DL (74-106) H Calcium Level 8.9 MG/DL (8.5-10.1) Total Bilirubin 0.5 MG/DL (0.2-1.0) Aspartate Amino Transf (AST/SGOT) 18 U/L (15-37) Alanine Aminotransferase (ALT/SGPT) 16 U/L (12-78) Alkaline Phosphatase 74 U/L (46-116) Total Creatine Kinase 29 U/L (26-308) Creatine Kinase MB 2.2 NG/ML (0.0-3.6) Creatine Kinase MB Relative Index 7.5 Troponin I 0.018 ng/mL (0.000-0.056) Pro-B-Type Natriuretic Peptide 6705 pg/mL (0-125) H Total Protein 7.1 G/DL (6.4-8.2) Albumin 3.2 G/DL (3.4-5.0) L Globulin 3.9 g/dL Albumin/Globulin Ratio 0.8 (1.0-2.7) L Urine Color Pale yellow Urine Appearance Clear Urine pH 5 (4.5-8.0) Urine Specific [place] 1.020 (1.005-1.035) Urine Protein 3+ (NEGATIVE) H Urine Glucose (UA) Negative (NEGATIVE) Urine Ketones Negative (NEGATIVE) Urine Blood 1+ (NEGATIVE) H Urine Nitrite Negative (NEGATIVE) Urine Bilirubin Negative (NEGATIVE) Urine Urobilinogen Normal MG/DL (0.0-1.0) Urine Leukocyte Esterase Negative (NEGATIVE) Urine RBC 0-2 /HPF (0 - 2) Urine WBC 0-2 /HPF (0 - 2) Urine Squamous Epithelial Cells Few /LPF (NONE/OCC) Urine Bacteria Few /HPF (NONE) Urine Hyaline Casts 0-2 /LPF (NONE) H Test 06/12/18 02:42 06/12/18 09:10 Arterial Blood pH 7.269 (7.350-7.450) Arterial Blood Partial Pressure CO2 92.4 mmHg (35.0-45.0) *H Arterial Blood Partial Pressure O2 91.4 mmHg (75.0-100.0) Arterial Blood HCO3 41.4 mmol/L (22.0-26.0) *H Arterial Blood Oxygen Saturation 96.5 % (95-100) Arterial Blood Base Excess 11.5 (-2-2) *H Ian Test Positive Troponin I 0.005 ng/mL (0.000-0.056) Microbiology Date/Time Source Procedure Growth Status 06/12/18 00:55 Rectum Received Height (Feet): 5 Height (Inches): 3.00 Weight (Pounds): 187 Medications Current Medications Medications (Trade) Dose Ordered Sig/Ibrahima Route PRN Reason Start Time Stop Time Status Last Admin Dose Admin Acetaminophen (Tylenol) 650 mg Q4H PRN ORAL Fever 06/12/18 07:15 07/12/18 07:14 Albuterol/ Ipratropium (Albuterol/ Ipratropium) 3 ml Q4H PRN HHN Shortness of Breath 06/12/18 07:15 06/17/18 07:14 Dextrose (Dextrose 50%) 25 ml Q30M PRN IV Hypoglycemia 06/12/18 07:15 07/12/18 07:14 Dextrose (Dextrose 50%) 50 ml Q30M PRN IV Hypoglycemia 06/12/18 07:15 07/12/18 07:14 Furosemide (Lasix) 40 mg EVERY 8 HOURS IV 06/12/18 14:00 07/12/18 13:59 06/12/18 14:06 Heparin Sodium (Porcine) (Heparin 5000 units/ml) 5,000 units EVERY 12 HOURS SUBQ 06/12/18 09:00 07/12/18 08:59 06/12/18 10:06 Ondansetron HCl (Zofran) 4 mg Q6H PRN IVP Nausea & Vomiting 06/12/18 07:15 07/12/18 07:14 Polyethylene Glycol (Miralax) 17 gm DAILYPRN PRN ORAL Constipation 06/12/18 07:15 07/12/18 07:14 Temazepam (Restoril) 15 mg HSPRN PRN ORAL Insomnia 06/12/18 07:15 06/19/18 07:14 Assessment/Plan Problem List: (1) Paranoid schizophrenia ICD Codes: F20.0 - Paranoid schizophrenia SNOMED: 95881977 (2) encephalopathy due to metabolic factor (3) Major depression ICD Codes: F32.9 - Major depressive disorder, single episode, unspecified SNOMED: 17275244, [id number] Status: unchanged Assessment/Plan dc risperdal haldol im for agitation provided ro/Luiz Childs MD Jun 12, 2018 15:25
[2018-06-12] MEDS ORDERED: Haloperidol 5mg/ml Inj IM PRN (15:30)
[2018-06-12 16:00] VITALS: BP 114/70
--- NOTE | 2018-06-12 16:32 | NUR ---
CASE MANAGEMENT: REVIEW 77/[facility] CC: DYSPNEA . RESP DISTRESS SI: RESP FAILURE . CHF T 98.4 HR 26 RR 34 BP 141/62 SAT 97% BIPAP FIO2 50 ABG: PH 7.100 PCO2 178.1 PO2 126.9 HCO3 54.1 O2 SAT 97.6 IS: SOLU MEDROL IV X1 ATROVENT HHN X1 ALBUTEROL HHN X1 LASIX IV X1 INTERQUAL CRITERIA MET: PATIENT ADMITTED TO STEP DOWN UNIT 06/11/2018 DCP: PAT[facility] IS FROM [facility]
--- NOTE | 2018-06-12 17:00 | NUR ---
NURSE NOTES: PT VERY AGITATED PULLING MEDICAL DEVICES SCREAMING AND UNABLE TO FALLOW SIMPLE COMMANDS.PT MEDICATED WITH HALDOL 5MG I.M PER M.D ORDERS FOR AGITATION .PT REMAINS FREE OF INJURIES AT THIS TIME.WILL CONT TO MONITOR.
--- NOTE | 2018-06-12 18:28 | History & Physical ---
History and Physical History & Physicial Dictated for Int Med - Dr Mendoza no. [id number] Juan Dutta MD Jun 12, 2018 18:28
--- NOTE | 2018-06-12 19:15 | NUR ---
HAND-OFF: Report given to .LISA OVALLES.
--- NOTE | 2018-06-12 19:20 | NUR ---
NURSE NOTES: Received patient from CHARLETTE GOMEZ. Asleep in bed with no sign of respiratory distress notes.on BiPAP 20/5 Fio2 80% and Rare 16 with good seal around mask with no leaks. o2 saturation 98-100%.no sign of pain at this time.López cath in place with pale yellow urine draining well.A-Fib with HR 89. vs stable. afebrile.call light in reach.will resume plan of care.
[2018-06-12 20:00] VITALS: BP 155/74
--- NOTE | 2018-06-12 20:15 | History and Physical Report ---
DATE OF ADMISSION: 06/12/2018 CHIEF COMPLAINT: The patient is a 77-year-old white female, presents with chief complaint of shortness of breath and altered mental status. HISTORY OF PRESENT ILLNESS: The patient was admitted to [facility] [place] in May 2018. Please see History and Physical and discharge summary dictated at that time. The patient is a resident of rehab center on [facility]. According to staff at rehabilitation [facility], the patient began to experience extreme short of breath yesterday, 06/11/2018. The patient was also hypoxic. The patient presented to [facility] [place]. The patient is admitted for shortness of breath to rule out pneumonia. REVIEW OF SYSTEMS: Unable to assess secondary to the patient's mental status. PAST MEDICAL HISTORY: Significant for: 1. Atrial flutter. 2. Congestive heart failure. 3. Chronic obstructive pulmonary disease. 4. History of intraventricular pacemaker. 5. Coronary artery disease. 6. Hypertension. 7. Seizure disorder. 8. Paranoid schizophrenia. 9. Depression. PAST SURGICAL HISTORY: Significant for intraventricular pacemaker implantation. CURRENT MEDICATIONS: 1. Tylenol No.3 one tablet p.o. q.4 hours. 2. Tylenol 650 mg p.o. q.4.hours p.r.n. 3. Amiodarone 200 mg p.o. daily. 4. Apixaban 2.5 mg p.o. twice daily. 5. Diltiazem 90 mg p.o. q.8 hours. 6. Furosemide 40 mg p.o. daily. 7. DuoNeb nebulized q.4.hours p.r.n. 8. Lisinopril 5 mg p.o. daily. 9. Mirtazapine 50 mg p.o. at bedtime. 10. Zofran 4 mg p.o. q.4 hours p.r.n. 11. Protonix 40 mg p.o. twice daily. 12. MiraLax 17 g p.o. daily. 13. Potassium chloride 10 mEq p.o. daily. 14. Risperdal 2 mg p.o. at bedtime. 15. Ambien 5 mg p.o. at bedtime. ALLERGIES: To piperacillin and tazobactam. SOCIAL HISTORY: The patient is a . The patient lives at rehabilitation center on [facility] as above. The patient denies tobacco or alcohol use. PHYSICAL EXAMINATION: VITAL SIGNS: Temperature 98.4, respirations 18, blood pressure 146/67, and respiration rate 18 to 28. GENERAL: The patient is well-developed, well-nourished white female, who is in moderate respiratory distress. HEENT: Eyes, pupils equal and responsive to light and accommodation. Extraocular movements are intact. NECK: Supple without lymphadenopathy. CHEST: Decreased breath sounds bilateral bases with crackles. Otherwise, without wheezes or rales. CARDIOVASCULAR: Tachycardic. Irregular rhythm and irregular rate. S1 and S2 normal without murmurs, rubs, or gallops. ABDOMEN: Soft, nontender, and nondistended. Positive bowel sounds. No evidence of hepatosplenomegaly. Currently, no rebound or guarding noted. EXTREMITIES: Negative for clubbing, cyanosis, or edema. RECTAL/GENITAL: Not performed. NEUROLOGIC: Cranial nerves II through XII are grossly intact without focal deficits. LABORATORY STUDIES: WBC 9.3, hemoglobin 9.5, hematocrit 35.7, and platelets 206,000. Sodium 135, potassium 4.6, chloride 92, CO2 elevated at 44, BUN 11, creatinine 0.7, and glucose 205. Troponin 0.018. BNP elevated at 6705. A chest x-ray revealed interstitial edema consistent with congestive heart failure. ASSESSMENT: This is a 77-year-old white female. 1. Congestive heart failure, acute exacerbation. 2. Respiratory failure. 3. Altered mental status. 4. Hypoxia. 5. Atrial flutter. 6. Congestive heart failure. 7. Chronic obstructive pulmonary disease. 8. Coronary artery disease. 9. Hypertension. 10. Seizure disorder. 11. Paranoid schizophrenia. 12. Depression. TREATMENT: 1. Congestive heart failure. Cardiology consultation has been obtained with Dr. Yohan Milian. The patient has been evaluated by Dr. Milian in the past. The patient has an intraventricular pacemaker. We will follow recommendation of Cardiology. 2. Altered mental status, most probably secondary to hypoxia as above. 3. Respiratory failure. This is probably secondary to congestive heart failure as above. 4. Hypoxia. 5. Atrial flutter. As above, a Cardiology consultation has been obtained with Dr. Yohan Milian. 6. Congestive heart failure. The patient is currently receiving intravenous Lasix. An echocardiogram is pending. Continue Lasix per Cardiology. 7. Chronic obstructive pulmonary disease. A Pulmonary consultation has been obtained with Dr. Mendel Sierra. We will follow recommendations of Pulmonary. 8. Coronary artery disease. 9. Hypertension. The patient is currently hypotensive. 10. Seizure disorder. 11. Paranoid schizophrenia. 12. Depression. Juan Dutta M.D. DR: EDGARD JOB#: [id number] CC:
[2018-06-13] VITALS: BP 99/60
--- NOTE | 2018-06-13 02:00 | NUR ---
NURSE NOTES: patient asleep in bed . continue with BiPAP 20/5 80%. no respiratory distress noted. o2 saturation 97-100%. no sign of pain. keep patient comfortable. turned and repositioned.
[2018-06-13 04:00] VITALS: BP 122/55
[2018-06-13 06:15] LABS: BASOPHILS % (AUTO) 1.1 % (0.0-2.0); EOSINOPHILS % (AUTO) 0.7 % (0.0-3.0); HEMATOCRIT 27.6 % (37.0-47.0); HEMOGLOBIN 8.7 G/DL (12.0-16.0); LYMPHOCYTES % (AUTO) 20.3 % (20.0-45.0); MEAN CORPUSCULAR VOLUME 88 FL (80-99); MONOCYTES % (AUTO) 11.6 % (1.0-10.0); NEUTROPHILS % (AUTO) 66.3 % (45.0-75.0); PLATELET COUNT 171 K/UL (150-450); RED BLOOD COUNT 3.14 M/UL (4.20-5.40); WHITE BLOOD COUNT 5.8 K/UL (4.8-10.8)
[2018-06-13 06:51] LABS: ALBUMIN 2.8 G/DL (3.4-5.0); BLOOD UREA NITROGEN 13 mg/dL (7-18); CHLORIDE 96 MMOL/L (98-107); CREATININE 0.7 MG/DL (0.55-1.30); PHOSPHORUS 3.1 MG/DL (2.5-4.9); POTASSIUM 3.6 MMOL/L (3.5-5.1); SODIUM 142 MMOL/L (136-145)
[2018-06-13 06:59] LABS: CARBON DIOXIDE > 45 MMOL/L (21-32)
--- NOTE | 2018-06-13 07:20 | NUR ---
HAND-OFF: Report given to ADWOA OVALLES using SBAR. patient remains stable in condition.
--- NOTE | 2018-06-13 07:20 | NUR ---
NURSE NOTES: Received report from Francine OVALLES. Pt is awake, alert, oriented x3. Currently on Bipap 15/5 40%. RT at bedside switching to Nasal Cannula 4L, breakfast tray in front of pt. Denies pain, no s/s of respiratory distress noted. IV access on Right FA #20G saline lock, patent/intact. Pt is fall and seizure precautions, side rails padded, suction set up. López catheter in place draining yellow/clear urine. Per shift nurse manager report total output for shift nurse manager was 1100mL. Skin has dressings on right buttock and right forearm, both dry/intact, will reassess and change during my shift. Call light within reach, bed in lowest position, three side rails up, brakes engaged, alarm on. SPR mattress ordered.
[2018-06-13 08:00] VITALS: BP 141/62
[2018-06-13] MEDS: Heparin 5000 units/ml inj SUBQ SCH ×2 (08:18→22:04)
--- NOTE | 2018-06-13 09:19 | Diagnostic Imaging Report ---
EXAM: XR Chest, 1 View CLINICAL HISTORY: DYSPNEA TECHNIQUE: Frontal view of the chest. COMPARISON: Chest x-ray dated 06/11/18 FINDINGS: Lungs: Sub-segmental atelectasis versus infiltrates in bilateral lung bases. Diffusely increased interstitial markings likely related to pulmonary interstitial edema. Pleural space: Moderate bilateral layering pleural effusions. Heart: Cardiomegaly. Mediastinum: Unremarkable. Bones/joints: Unremarkable. Vasculature: Atherosclerotic calcifications are noted within the aortic arch. Tubes, lines and devices: EKG leads overlie the thorax. Cardiac monitoring device overlies the left lower thorax. IMPRESSION: 1. Findings consistent with CHF, with cardiomegaly, pulmonary interstitial edema, and mild to moderate bilateral layering pleural effusions. This is not significantly changed compared to the prior chest x-ray. 2. Sub-segmental atelectasis versus infiltrates in bilateral lung bases.
[2018-06-13 12:00] VITALS: BP 114/42
--- NOTE | 2018-06-13 14:42 | Internal Med Progress Note ---
Subjective Date of Service: Jun 13, 2018 Physician Name Juan Dutta Attending Physician Yonathan Mendoza MD Current Medications Medications (Trade) Dose Ordered Sig/Ibrahima Route PRN Reason Start Time Stop Time Status Last Admin Dose Admin Acetaminophen (Tylenol) 650 mg Q4H PRN ORAL Fever 06/12/18 07:15 07/12/18 07:14 Albuterol/ Ipratropium (Albuterol/ Ipratropium) 3 ml Q4H PRN HHN Shortness of Breath 06/12/18 07:15 06/17/18 07:14 Dextrose (Dextrose 50%) 25 ml Q30M PRN IV Hypoglycemia 06/12/18 07:15 07/12/18 07:14 Dextrose (Dextrose 50%) 50 ml Q30M PRN IV Hypoglycemia 06/12/18 07:15 07/12/18 07:14 Furosemide (Lasix) 40 mg EVERY 8 HOURS IV 06/12/18 14:00 07/12/18 13:59 06/13/18 13:17 Haloperidol Lactate (Haldol) 5 mg Q6H PRN IM Agitation 06/12/18 15:30 07/12/18 15:29 06/12/18 16:59 Heparin Sodium (Porcine) (Heparin 5000 units/ml) 5,000 units EVERY 12 HOURS SUBQ 06/12/18 09:00 07/12/18 08:59 06/13/18 08:18 Ondansetron HCl (Zofran) 4 mg Q6H PRN IVP Nausea & Vomiting 06/12/18 07:15 07/12/18 07:14 Polyethylene Glycol (Miralax) 17 gm DAILYPRN PRN ORAL Constipation 06/12/18 07:15 07/12/18 07:14 Temazepam (Restoril) 15 mg HSPRN PRN ORAL Insomnia 06/12/18 07:15 06/19/18 07:14 06/12/18 21:46 Allergies: Coded Allergies: PIPERACILLIN (Unverified Allergy, Unknown, 05/21/18) tolerates cephalosporins TAZOBACTAM (Unverified Allergy, Unknown, 03/10/18) ROS Limited/Unobtainable: No Constitutional: Reports: no symptoms HEENT: Reports: no symptoms Cardiovascular: Reports: no symptoms Respiratory: Reports: no symptoms Gastrointestinal/Abdominal: Reports: no symptoms Genitourinary: Reports: no symptoms Neurologic/Psychiatric: Reports: no symptoms Subjective 77 YO F admitted with altered mental status. Now CHF. CHRISTOPHER. Cover for Int Med- Dr Mendoza. Off BIPAP Objective Last Vital Signs Date Time Temp Pulse Resp B/P (MAP) Pulse Ox O2 Delivery O2 Flow Rate FiO2 06/13/18 12:12 74 18 98 Full Face 40 06/13/18 08:00 97.3 141/62 (88) 06/12/18 05:00 10.0 Laboratory Tests Test 06/13/18 03:40 White Blood Count 5.8 K/UL (4.8-10.8) Red Blood Count 3.14 M/UL (4.20-5.40) L Hemoglobin 8.7 G/DL (12.0-16.0) L Hematocrit 27.6 % (37.0-47.0) L Mean Corpuscular Volume 88 FL (80-99) Mean Corpuscular Hemoglobin 27.8 PG (27.0-31.0) Mean Corpuscular Hemoglobin Concent 31.5 G/DL (32.0-36.0) L Red Cell Distribution Width 17.0 % (11.6-14.8) H Platelet Count 171 K/UL (150-450) Mean Platelet Volume 6.6 FL (6.5-10.1) Neutrophils (%) (Auto) 66.3 % (45.0-75.0) Lymphocytes (%) (Auto) 20.3 % (20.0-45.0) Monocytes (%) (Auto) 11.6 % (1.0-10.0) H Eosinophils (%) (Auto) 0.7 % (0.0-3.0) Basophils (%) (Auto) 1.1 % (0.0-2.0) Sodium Level 142 MMOL/L (136-145) Potassium Level 3.6 MMOL/L (3.5-5.1) Chloride Level 96 MMOL/L (98-107) L Carbon Dioxide Level > 45 MMOL/L (21-32) *H Blood Urea Nitrogen 13 mg/dL (7-18) Creatinine 0.7 MG/DL (0.55-1.30) Estimat Glomerular Filtration Rate mL/min (>60) Glucose Level 68 MG/DL (74-106) #L Calcium Level 9.0 MG/DL (8.5-10.1) Phosphorus Level 3.1 MG/DL (2.5-4.9) Troponin I 0.028 ng/mL (0.000-0.056) Albumin 2.8 G/DL (3.4-5.0) L Microbiology Date/Time Source Procedure Growth Status 06/12/18 00:55 Rectum Received Intake and Output 06/12/18 06/13/18 19:00 07:00 Intake Total 100 ml Output Total 1400 ml 1100 ml Balance -1400 ml -1000 ml Intake Oral 100 ml Output Urine Total 1400 ml 1100 ml Objective PHYSICAL EXAMINATION: VITAL SIGNS: Temperature 98.4, respirations 18, blood pressure 146/67, and respiration rate 18 to 28. GENERAL: The patient is well-developed, well-nourished white female, who is in moderate respiratory distress. HEENT: Eyes, pupils equal and responsive to light and accommodation. Extraocular movements are intact. NECK: Supple without lymphadenopathy. CHEST: Decreased breath sounds bilateral bases with crackles. Otherwise, without wheezes or rales. CARDIOVASCULAR: Tachycardic. Irregular rhythm and irregular rate. S1 and S2 normal without murmurs, rubs, or gallops. ABDOMEN: Soft, nontender, and nondistended. Positive bowel sounds. No evidence of hepatosplenomegaly. Currently, no rebound or guarding noted. EXTREMITIES: Negative for clubbing, cyanosis, or edema. RECTAL/GENITAL: Not performed. NEUROLOGIC: Cranial nerves II through XII are grossly intact without focal deficits. Assessment/Plan Assessment/Plan ASSESSMENT: This is a 77-year-old white female. 1. Congestive heart failure, acute exacerbation. 2. Respiratory failure. 3. Altered mental status. 4. Hypoxia. 5. Atrial flutter. 6. Congestive heart failure. 7. Chronic obstructive pulmonary disease. 8. Coronary artery disease. 9. Hypertension. 10. Seizure disorder. 11. Paranoid schizophrenia. 12. Depression. TREATMENT: 1. Congestive heart failure. Cardiology consultation has been obtained with Dr. Yohan Milian. The patient has been evaluated by Dr. Milian in the past. The patient has an intraventricular pacemaker. We will follow recommendation of Cardiology. 2. Altered mental status, most probably secondary to hypoxia as above. 3. Respiratory failure. See pulmonology note. This is probably secondary to congestive heart failure as above. OFF BIPAP 4. Hypoxia. 5. Atrial flutter. As above, a Cardiology consultation has been obtained with Dr. Yohan Milian. 6. Congestive heart failure. The patient is currently receiving intravenous Lasix. An echocardiogram is pending. Continue Lasix per Cardiology. 7. Chronic obstructive pulmonary disease. A Pulmonary consultation has been obtained with Dr. Mendel Sierra. We will follow recommendations of Pulmonary. 8. Coronary artery disease. 9. Hypertension. The patient is currently hypotensive. 10. Seizure disorder. 11. Paranoid schizophrenia. 12. Depression. Juan Dutta MD Jun 13, 2018 14:42
[2018-06-13 16:00] VITALS: BP 101/51
--- NOTE | 2018-06-13 19:08 | NUR ---
HAND-OFF: Report given to Francine OVALLES. Pt is resting in bed in stable condition. Endorsed plan of care.
--- NOTE | 2018-06-13 19:10 | NUR ---
NURSE NOTES: Received patient from CHARLETTE Zaho. Awake alert oriented x3 watching TV.currently on BiPAP 15/5 40% with no sign of respiratory distress noted. o2 saturation 98-100%.no sign of pain at this time.Purewick with pale yellow urine. A-Fib with HR 74. vs stable. afebrile.call light in reach.will resume plan of care.
[2018-06-13 20:00] VITALS: BP 114/50
--- NOTE | 2018-06-13 21:36 | Pulmonolgy Critical Care Note ---
Critical Care - Asmt/Plan Problems: (1) Respiratory failure, acute (2) Acute encephalopathy (3) Atrial flutter (4) COPD (chronic obstructive pulmonary disease) (5) CAD (coronary artery disease) (6) Dementia (7) Paranoid schizophrenia (8) Major depression (9) Bipolar depression Respiratory: monitor respiratory rate, adjust FIO2, CXR Cardiac: continue to monitor HR/BP Renal: F/U I&O, check electrolytes Gastrointestinal: continue feedings/current rate, hold feedings Endocrine: continue sliding scale insulin Hematologic: transfuse if hgb<8.5 Neurologic: PRN Morphine, keep patient comfortable Notes Reviewed: policy manager, cardio, renal Discussed with: nurses Critical Care - Objective Last 24 Hour Vital Signs Date Time Temp Pulse Resp B/P (MAP) Pulse Ox O2 Delivery O2 Flow Rate FiO2 06/13/18 18:47 76 19 98 Full Face 40 06/13/18 16:00 40 06/13/18 16:00 Bi-pap 06/13/18 16:00 80 06/13/18 16:00 98.2 80 32 101/51 (68) 91 06/13/18 15:35 97.3 06/13/18 12:12 74 18 98 Full Face 40 06/13/18 12:00 98.2 74 24 114/42 (66) 100 06/13/18 12:00 Bi-pap 06/13/18 12:00 40 06/13/18 11:29 76 06/13/18 08:00 80 06/13/18 08:00 97.3 74 28 141/62 (88) 98 06/13/18 08:00 40 06/13/18 08:00 Bi-pap 06/13/18 05:00 80 18 100 Full Face 40 06/13/18 04:00 98.4 75 28 122/55 (77) 100 06/13/18 04:00 73 06/13/18 04:00 40 06/13/18 04:00 Bi-pap 06/13/18 03:06 77 18 100 Full Face 50 06/13/18 01:08 73 18 100 Facial 40 06/13/18 00:00 98.6 75 16 99/60 (73) 100 06/13/18 00:00 Bi-pap 06/13/18 00:00 80 06/13/18 00:00 78 06/12/18 23:00 70 18 100 Facial 40 Status: awake Condition: critical HEENT: atraumatic Heart: HR/BP unstable Abdomen: soft, feeding tube Micro: Microbiology Date/Time Source Procedure Growth Status 06/12/18 00:55 Rectum Received Critical Care - Subjective ROS Limited/Unobtainable: Yes EKG Rhythm: Sinus Bradycardia FI02: 40 Vent Support Breath Rate: 16 Vent Support Mode: AC Sputum Amount: None I&O: Intake and Output 06/12/18 06/13/18 18:59 06:59 Intake Total 100 ml Output Total 1400 ml 1100 ml Balance -1400 ml -1000 ml Intake Oral 100 ml Output Urine Total 1400 ml 1100 ml Mendel Sierra MD Jun 13, 2018 21:36
--- NOTE | 2018-06-13 23:45 | General Progress Note ---
Assessment/Plan Problem List: (1) Paranoid schizophrenia ICD Codes: F20.0 - Paranoid schizophrenia SNOMED: 41714750 (2) encephalopathy due to metabolic factor (3) Major depression ICD Codes: F32.9 - Major depressive disorder, single episode, unspecified SNOMED: 62115253, [id number] Assessment/Plan dc risperdal haldol im for agitation provided ro/st Subjective Neurologic/Psychiatric: Reports: anxiety Allergies: Coded Allergies: PIPERACILLIN (Unverified Allergy, Unknown, 05/21/18) tolerates cephalosporins TAZOBACTAM (Unverified Allergy, Unknown, 03/10/18) Subjective waxing and waning of consciousness Objective Last 24 Hour Vital Signs Date Time Temp Pulse Resp B/P (MAP) Pulse Ox O2 Delivery O2 Flow Rate FiO2 06/13/18 23:19 70 16 97 Full Face 40 06/13/18 22:22 77 27 100 Full Face 40 06/13/18 20:00 40 06/13/18 20:00 98.4 74 20 114/50 (71) 98 06/13/18 20:00 Bi-pap 06/13/18 18:47 76 19 98 Full Face 40 06/13/18 16:00 40 06/13/18 16:00 Bi-pap 06/13/18 16:00 80 06/13/18 16:00 98.2 80 32 101/51 (68) 91 06/13/18 15:35 97.3 06/13/18 12:12 74 18 98 Full Face 40 06/13/18 12:00 98.2 74 24 114/42 (66) 100 06/13/18 12:00 Bi-pap 06/13/18 12:00 40 06/13/18 11:29 76 06/13/18 08:00 80 06/13/18 08:00 97.3 74 28 141/62 (88) 98 06/13/18 08:00 40 06/13/18 08:00 Bi-pap 06/13/18 05:00 80 18 100 Full Face 40 06/13/18 04:00 98.4 75 28 122/55 (77) 100 06/13/18 04:00 73 06/13/18 04:00 40 06/13/18 04:00 Bi-pap 06/13/18 03:06 77 18 100 Full Face 50 06/13/18 01:08 73 18 100 Facial 40 06/13/18 00:00 98.6 75 16 99/60 (73) 100 06/13/18 00:00 Bi-pap 06/13/18 00:00 80 06/13/18 00:00 78 Intake and Output 06/12/18 06/13/18 18:59 06:59 Intake Total 100 ml Output Total 1400 ml 1100 ml Balance -1400 ml -1000 ml Intake Oral 100 ml Output Urine Total 1400 ml 1100 ml Laboratory Tests 06/13/18 03:40: White Blood Count 5.8, Red Blood Count 3.14L, Hemoglobin 8.7L, Hematocrit 27.6L , Mean Corpuscular Volume 88, Mean Corpuscular Hemoglobin 27.8, Mean Corpuscular Hemoglobin Concent 31.5L, Red Cell Distribution Width 17.0H, Platelet Count 171, Mean Platelet Volume 6.6, Neutrophils (%) (Auto) 66.3, Lymphocytes (%) (Auto) 20.3, Monocytes (%) (Auto) 11.6H, Eosinophils (%) (Auto) 0.7, Basophils (%) (Auto) 1.1, Sodium Level 142, Potassium Level 3.6, Chloride Level 96L, Carbon Dioxide Level > 45*H, Blood Urea Nitrogen 13, Creatinine 0.7, Estimat Glomerular Filtration Rate , Glucose Level 68#L, Calcium Level 9.0, Phosphorus Level 3.1, Troponin I 0.028, Albumin 2.8L Height (Feet): 5 Height (Inches): 3.00 Weight (Pounds): 183 General Appearance: no apparent distress, confused, agitated Luiz Morrison MD Jun 13, 2018 23:45
[2018-06-14] VITALS: BP 110/50
--- NOTE | 2018-06-14 02:44 | NUR ---
NURSE NOTES: patient asleep with no respiratory distress with BiPAP.no sign of pain. Turned and repositioned.keep patient comfortable.
[2018-06-14 04:00] VITALS: BP 114/45
[2018-06-14 05:39] LABS: BASOPHILS % (AUTO) 1.5 % (0.0-2.0); EOSINOPHILS % (AUTO) 1.4 % (0.0-3.0); HEMATOCRIT 29.3 % (37.0-47.0); HEMOGLOBIN 9.2 G/DL (12.0-16.0); LYMPHOCYTES % (AUTO) 23.2 % (20.0-45.0); MEAN CORPUSCULAR VOLUME 88 FL (80-99); MONOCYTES % (AUTO) 10.2 % (1.0-10.0); NEUTROPHILS % (AUTO) 63.7 % (45.0-75.0); PLATELET COUNT 174 K/UL (150-450); RED BLOOD COUNT 3.34 M/UL (4.20-5.40); RED CELL DISTRIBUTION WIDTH 17.5 % (11.6-14.8); WHITE BLOOD COUNT 5.2 K/UL (4.8-10.8)
[2018-06-14 06:07] LABS: BLOOD UREA NITROGEN 18 mg/dL (7-18); CALCIUM 8.8 MG/DL (8.5-10.1); CHLORIDE 95 MMOL/L (98-107); CREATININE 0.9 MG/DL (0.55-1.30); POTASSIUM 3.2 MMOL/L (3.5-5.1); SODIUM 141 MMOL/L (136-145)
[2018-06-14 06:12] LABS: CARBON DIOXIDE > 45 MMOL/L (21-32)
--- NOTE | 2018-06-14 07:21 | NUR ---
HAND-OFF: Report given to PATRICIA RN using SBAR. no sign of respiratory distress noted.
[2018-06-14 08:00] VITALS: BP 122/52
[2018-06-14] MEDS: Heparin 5000 units/ml inj SUBQ SCH ×2 (09:40→20:46)
--- NOTE | 2018-06-14 11:30 | NUR ---
NURSE NOTES:PLACED A TELEPHONE CALL TO DR TAM REGARDING PT k+ LEVEL IS 3.2 LEFT MESSAGE ON EMERGENCY VOICE MAIL.A WAITING FOR DR TAM TO CALL ME BACK .WILL CONT TO MONITOR.
[2018-06-14 12:00] VITALS: BP 132/54
--- NOTE | 2018-06-14 12:00 | NUR ---
NURSE NOTES:PT OFF BIPAP.PT USING O2 @ 4l/mints via n/c ,saturating 98%.NO ACUTE DISTRESS NOTED AT THIS TIME.WILL CONT TO MONITOR.
--- NOTE | 2018-06-14 12:45 | NUR ---
NURSE NOTES: Jeffy BUCHANAN CALL ME BACK AND MADE AWARE AND NOTIFIED REGARDING K+ LEVEL 3.2 ,RECEIVED A TO FROM DR TAM TO GIVE KCL 20MEQ IVPB ,NEW ORDERS NOTED AND CARRIED OUT .WILL CONT TO MONITOR.
--- NOTE | 2018-06-14 14:09 | Cardiac Electrophysiology PN ---
Subjective Subjective [id number] Objective Last 24 Hour Vital Signs Date Time Temp Pulse Resp B/P (MAP) Pulse Ox O2 Delivery O2 Flow Rate FiO2 06/14/18 12:00 65 06/14/18 12:00 4.0 06/14/18 09:14 06/14/18 08:59 60 06/14/18 08:15 67 20 100 Full Face 40 06/14/18 08:00 97.7 65 21 122/52 (75) 98 06/14/18 08:00 40 06/14/18 08:00 Bi-pap 06/14/18 06:42 64 17 100 Full Face 40 06/14/18 05:28 65 18 98 Full Face 40 06/14/18 04:00 69 06/14/18 04:00 98.4 70 18 114/45 (68) 98 06/14/18 04:00 Bi-pap 06/14/18 04:00 40 06/14/18 03:22 74 18 99 Full Face 40 06/14/18 03:15 72 18 98 Full Face 40 06/14/18 01:30 70 19 97 Full Face 40 06/14/18 00:00 Bi-pap 06/14/18 00:00 71 06/14/18 00:00 98.3 70 18 110/50 (70) 99 06/14/18 00:00 40 06/13/18 23:19 70 16 97 Full Face 40 06/13/18 22:22 77 27 100 Full Face 40 06/13/18 20:00 40 06/13/18 20:00 98.4 74 20 114/50 (71) 98 06/13/18 20:00 74 06/13/18 20:00 Bi-pap 06/13/18 18:47 76 19 98 Full Face 40 06/13/18 16:00 40 06/13/18 16:00 Bi-pap 06/13/18 16:00 80 06/13/18 16:00 98.2 80 32 101/51 (68) 91 06/13/18 15:35 97.3 Intake and Output 06/13/18 06/14/18 19:00 07:00 Intake Total 500 ml 200 ml Output Total 1700 ml 1000 ml Balance -1200 ml -800 ml Intake Oral 500 ml 200 ml Output Urine Total 1700 ml 1000 ml # Bowel Movements 1 1 Laboratory Tests Test 06/14/18 03:40 White Blood Count 5.2 K/UL (4.8-10.8) Red Blood Count 3.34 M/UL (4.20-5.40) L Hemoglobin 9.2 G/DL (12.0-16.0) L Hematocrit 29.3 % (37.0-47.0) L Mean Corpuscular Volume 88 FL (80-99) Mean Corpuscular Hemoglobin 27.6 PG (27.0-31.0) Mean Corpuscular Hemoglobin Concent 31.4 G/DL (32.0-36.0) L Red Cell Distribution Width 17.5 % (11.6-14.8) H Platelet Count 174 K/UL (150-450) Mean Platelet Volume 7.0 FL (6.5-10.1) Neutrophils (%) (Auto) 63.7 % (45.0-75.0) Lymphocytes (%) (Auto) 23.2 % (20.0-45.0) Monocytes (%) (Auto) 10.2 % (1.0-10.0) H Eosinophils (%) (Auto) 1.4 % (0.0-3.0) Basophils (%) (Auto) 1.5 % (0.0-2.0) Sodium Level 141 MMOL/L (136-145) Potassium Level 3.2 MMOL/L (3.5-5.1) L Chloride Level 95 MMOL/L (98-107) L Carbon Dioxide Level > 45 MMOL/L (21-32) *H Blood Urea Nitrogen 18 mg/dL (7-18) Creatinine 0.9 MG/DL (0.55-1.30) Estimat Glomerular Filtration Rate mL/min (>60) Glucose Level 75 MG/DL (74-106) Calcium Level 8.8 MG/DL (8.5-10.1) Troponin I 0.014 ng/mL (0.000-0.056) Microbiology Date/Time Source Procedure Growth Status 06/12/18 00:55 Nasal Nares MRSA Culture - Final Staphylococcus Aureus - Mrsa Complete 06/12/18 00:55 Rectum VRE Culture - Final Enterococcus Faecalis - Vre Complete 06/12/18 00:55 Rectum - Final NO CARBAPENEM-RESISTANT ENTEROBACTERI... Complete Yohan Milian MD Jun 14, 2018 14:09
--- NOTE | 2018-06-14 15:40 | Pulmonology Progress Note ---
Assessment/Plan Problems: (1) Respiratory failure, acute (2) Acute encephalopathy (3) COPD (chronic obstructive pulmonary disease) (4) Acute diastolic CHF (congestive heart failure) (5) Pulmonary edema (6) CAD (coronary artery disease) (7) Dementia (8) Seizure disorder Assessment/Plan off bipap lasix IV check electrolytes, bun and creatinine not rising yet check CXR and BNP daily titrate fio2 to sat of 92% monitor Heart rate cardiology to follow. DVT prophylaxis symptomatic treatment start oral feeding once dyspnea under control Subjective ROS Limited/Unobtainable: Yes Constitutional: Reports: no symptoms HEENT: Repors: no symptoms Allergies: Coded Allergies: PIPERACILLIN (Unverified Allergy, Unknown, 05/21/18) tolerates cephalosporins TAZOBACTAM (Unverified Allergy, Unknown, 03/10/18) Objective Last 24 Hour Vital Signs Date Time Temp Pulse Resp B/P (MAP) Pulse Ox O2 Delivery O2 Flow Rate FiO2 06/14/18 12:00 97.7 73 20 132/54 (80) 98 06/14/18 12:00 Bi-pap 06/14/18 12:00 65 06/14/18 12:00 4.0 06/14/18 09:14 06/14/18 08:59 60 06/14/18 08:15 67 20 100 Full Face 40 06/14/18 08:00 97.7 65 21 122/52 (75) 98 06/14/18 08:00 40 06/14/18 08:00 Bi-pap 06/14/18 06:42 64 17 100 Full Face 40 06/14/18 05:28 65 18 98 Full Face 40 06/14/18 04:00 69 06/14/18 04:00 98.4 70 18 114/45 (68) 98 06/14/18 04:00 Bi-pap 06/14/18 04:00 40 06/14/18 03:22 74 18 99 Full Face 40 06/14/18 03:15 72 18 98 Full Face 40 06/14/18 01:30 70 19 97 Full Face 40 06/14/18 00:00 Bi-pap 06/14/18 00:00 71 06/14/18 00:00 98.3 70 18 110/50 (70) 99 06/14/18 00:00 40 06/13/18 23:19 70 16 97 Full Face 40 06/13/18 22:22 77 27 100 Full Face 40 06/13/18 20:00 40 06/13/18 20:00 98.4 74 20 114/50 (71) 98 06/13/18 20:00 74 06/13/18 20:00 Bi-pap 06/13/18 18:47 76 19 98 Full Face 40 06/13/18 16:00 40 06/13/18 16:00 Bi-pap 06/13/18 16:00 80 06/13/18 16:00 98.2 80 32 101/51 (68) 91 Intake and Output 06/13/18 06/14/18 19:00 07:00 Intake Total 500 ml 200 ml Output Total 1700 ml 1000 ml Balance -1200 ml -800 ml Intake Oral 500 ml 200 ml Output Urine Total 1700 ml 1000 ml # Bowel Movements 1 1 Objective off bipap General Appearance: WD/WN HEENT: normocephalic, anicteric Respiratory/Chest: chest wall non-tender, normal breath sounds Cardiovascular: normal rate Abdomen: soft, non tender, no mass Extremities: no cyanosis Skin: no rash Microbiology Date/Time Source Procedure Growth Status 06/12/18 00:55 Nasal Nares MRSA Culture - Final Staphylococcus Aureus - Mrsa Complete 06/12/18 00:55 Rectum VRE Culture - Final Enterococcus Faecalis - Vre Complete 06/12/18 00:55 Rectum - Final NO CARBAPENEM-RESISTANT ENTEROBACTERI... Complete Laboratory Tests 06/14/18 03:40: White Blood Count 5.2, Red Blood Count 3.34L, Hemoglobin 9.2L, Hematocrit 29.3L , Mean Corpuscular Volume 88, Mean Corpuscular Hemoglobin 27.6, Mean Corpuscular Hemoglobin Concent 31.4L, Red Cell Distribution Width 17.5H, Platelet Count 174, Mean Platelet Volume 7.0, Neutrophils (%) (Auto) 63.7, Lymphocytes (%) (Auto) 23.2, Monocytes (%) (Auto) 10.2H, Eosinophils (%) (Auto) 1.4, Basophils (%) (Auto) 1.5, Sodium Level 141, Potassium Level 3.2L, Chloride Level 95L, Carbon Dioxide Level > 45*H, Blood Urea Nitrogen 18, Creatinine 0.9, Estimat Glomerular Filtration Rate , Glucose Level 75, Calcium Level 8.8, Troponin I 0.014 Current Medications Medications (Trade) Dose Ordered Sig/Ibrahima Route PRN Reason Start Time Stop Time Status Last Admin Dose Admin Acetaminophen (Tylenol) 650 mg Q4H PRN ORAL Fever 06/12/18 07:15 07/12/18 07:14 06/14/18 05:51 Albuterol/ Ipratropium (Albuterol/ Ipratropium) 3 ml Q4H PRN HHN Shortness of Breath 06/12/18 07:15 06/17/18 07:14 Dextrose (Dextrose 50%) 25 ml Q30M PRN IV Hypoglycemia 06/12/18 07:15 07/12/18 07:14 Dextrose (Dextrose 50%) 50 ml Q30M PRN IV Hypoglycemia 06/12/18 07:15 07/12/18 07:14 Furosemide (Lasix) 40 mg EVERY 8 HOURS IV 06/12/18 14:00 07/12/18 13:59 06/14/18 15:30 Haloperidol Lactate (Haldol) 5 mg Q6H PRN IM Agitation 06/12/18 15:30 07/12/18 15:29 06/12/18 16:59 Heparin Sodium (Porcine) (Heparin 5000 units/ml) 5,000 units EVERY 12 HOURS SUBQ 06/12/18 09:00 07/12/18 08:59 06/14/18 09:40 Ondansetron HCl (Zofran) 4 mg Q6H PRN IVP Nausea & Vomiting 06/12/18 07:15 07/12/18 07:14 Polyethylene Glycol (Miralax) 17 gm DAILYPRN PRN ORAL Constipation 06/12/18 07:15 07/12/18 07:14 06/13/18 15:03 Temazepam (Restoril) 15 mg HSPRN PRN ORAL Insomnia 06/12/18 07:15 06/19/18 07:14 06/13/18 22:03 Mendel Sierra MD Jun 14, 2018 15:40
[2018-06-14 16:00] VITALS: BP 135/64
--- NOTE | 2018-06-14 16:23 | Internal Med Progress Note ---
Subjective Date of Service: Jun 14, 2018 Physician Name Juan Dutta Attending Physician Yonathan Mendoza MD Current Medications Medications (Trade) Dose Ordered Sig/Ibrahima Route PRN Reason Start Time Stop Time Status Last Admin Dose Admin Acetaminophen (Tylenol) 650 mg Q4H PRN ORAL Fever 06/12/18 07:15 07/12/18 07:14 06/14/18 05:51 Albuterol/ Ipratropium (Albuterol/ Ipratropium) 3 ml Q4H PRN HHN Shortness of Breath 06/12/18 07:15 06/17/18 07:14 Dextrose (Dextrose 50%) 25 ml Q30M PRN IV Hypoglycemia 06/12/18 07:15 07/12/18 07:14 Dextrose (Dextrose 50%) 50 ml Q30M PRN IV Hypoglycemia 06/12/18 07:15 07/12/18 07:14 Furosemide (Lasix) 40 mg EVERY 8 HOURS IV 06/12/18 14:00 07/12/18 13:59 06/14/18 15:30 Haloperidol Lactate (Haldol) 5 mg Q6H PRN IM Agitation 06/12/18 15:30 07/12/18 15:29 06/12/18 16:59 Heparin Sodium (Porcine) (Heparin 5000 units/ml) 5,000 units EVERY 12 HOURS SUBQ 06/12/18 09:00 07/12/18 08:59 06/14/18 09:40 Ondansetron HCl (Zofran) 4 mg Q6H PRN IVP Nausea & Vomiting 06/12/18 07:15 07/12/18 07:14 Polyethylene Glycol (Miralax) 17 gm DAILYPRN PRN ORAL Constipation 06/12/18 07:15 07/12/18 07:14 06/13/18 15:03 Temazepam (Restoril) 15 mg HSPRN PRN ORAL Insomnia 06/12/18 07:15 06/19/18 07:14 06/13/18 22:03 Allergies: Coded Allergies: PIPERACILLIN (Unverified Allergy, Unknown, 05/21/18) tolerates cephalosporins TAZOBACTAM (Unverified Allergy, Unknown, 03/10/18) Subjective 77 YO F admitted with altered mental status. Now CHF. CHRISTOPHER. Cover for Int Med- Dr Mendoza. Off BIPAP; tolerating nasal canula Objective Last Vital Signs Date Time Temp Pulse Resp B/P (MAP) Pulse Ox O2 Delivery O2 Flow Rate FiO2 06/14/18 12:00 97.7 73 20 132/54 (80) 98 06/14/18 12:00 Bi-pap 06/14/18 12:00 4.0 06/14/18 09:14 Laboratory Tests Test 06/14/18 03:40 White Blood Count 5.2 K/UL (4.8-10.8) Red Blood Count 3.34 M/UL (4.20-5.40) L Hemoglobin 9.2 G/DL (12.0-16.0) L Hematocrit 29.3 % (37.0-47.0) L Mean Corpuscular Volume 88 FL (80-99) Mean Corpuscular Hemoglobin 27.6 PG (27.0-31.0) Mean Corpuscular Hemoglobin Concent 31.4 G/DL (32.0-36.0) L Red Cell Distribution Width 17.5 % (11.6-14.8) H Platelet Count 174 K/UL (150-450) Mean Platelet Volume 7.0 FL (6.5-10.1) Neutrophils (%) (Auto) 63.7 % (45.0-75.0) Lymphocytes (%) (Auto) 23.2 % (20.0-45.0) Monocytes (%) (Auto) 10.2 % (1.0-10.0) H Eosinophils (%) (Auto) 1.4 % (0.0-3.0) Basophils (%) (Auto) 1.5 % (0.0-2.0) Sodium Level 141 MMOL/L (136-145) Potassium Level 3.2 MMOL/L (3.5-5.1) L Chloride Level 95 MMOL/L (98-107) L Carbon Dioxide Level > 45 MMOL/L (21-32) *H Blood Urea Nitrogen 18 mg/dL (7-18) Creatinine 0.9 MG/DL (0.55-1.30) Estimat Glomerular Filtration Rate mL/min (>60) Glucose Level 75 MG/DL (74-106) Calcium Level 8.8 MG/DL (8.5-10.1) Troponin I 0.014 ng/mL (0.000-0.056) Microbiology Date/Time Source Procedure Growth Status 06/12/18 00:55 Nasal Nares MRSA Culture - Final Staphylococcus Aureus - Mrsa Complete 06/12/18 00:55 Rectum VRE Culture - Final Enterococcus Faecalis - Vre Complete 06/12/18 00:55 Rectum - Final NO CARBAPENEM-RESISTANT ENTEROBACTERI... Complete Intake and Output 06/13/18 06/14/18 19:00 07:00 Intake Total 500 ml 200 ml Output Total 1700 ml 1000 ml Balance -1200 ml -800 ml Intake Oral 500 ml 200 ml Output Urine Total 1700 ml 1000 ml # Bowel Movements 1 1 Objective PHYSICAL EXAMINATION: GENERAL: The patient is well-developed, well-nourished white female, who is in moderate respiratory distress. HEENT: Eyes, pupils equal and responsive to light and accommodation. Extraocular movements are intact. NECK: Supple without lymphadenopathy. CHEST: Tolerating nasal canula. Decreased breath sounds bilateral bases with crackles. Otherwise, without wheezes or rales. CARDIOVASCULAR: Tachycardic. Irregular rhythm and irregular rate. S1 and S2 normal without murmurs, rubs, or gallops. ABDOMEN: Soft, nontender, and nondistended. Positive bowel sounds. No evidence of hepatosplenomegaly. Currently, no rebound or guarding noted. EXTREMITIES: Negative for clubbing, cyanosis, or edema. RECTAL/GENITAL: Not performed. NEUROLOGIC: Cranial nerves II through XII are grossly intact without focal deficits. Assessment/Plan Assessment/Plan ASSESSMENT: This is a 77-year-old white female. 1. Congestive heart failure, acute exacerbation. 2. Respiratory failure. 3. Altered mental status. 4. Hypoxia. 5. Atrial flutter. 6. Congestive heart failure. 7. Chronic obstructive pulmonary disease. 8. Coronary artery disease. 9. Hypertension. 10. Seizure disorder. 11. Paranoid schizophrenia. 12. Depression. TREATMENT: 1. Congestive heart failure. Cardiology consultation has been obtained with Dr. Yohan Milian. The patient has been evaluated by Dr. Milian in the past. The patient has an intraventricular pacemaker. We will follow recommendation of Cardiology. 2. Altered mental status, most probably secondary to hypoxia as above. 3. Respiratory failure. See pulmonology note. This is probably secondary to congestive heart failure as above. OFF BIPAP; tolerating nasal canula 4. Hypoxia. 5. Atrial flutter. As above, a Cardiology consultation has been obtained with Dr. Yohan Milian. 6. Congestive heart failure. The patient is currently receiving intravenous Lasix. An echocardiogram is pending. Continue Lasix per Cardiology. 7. Chronic obstructive pulmonary disease. A Pulmonary consultation has been obtained with Dr. Mendel Sierra. We will follow recommendations of Pulmonary. 8. Coronary artery disease. 9. Hypertension. The patient is currently hypotensive. 10. Seizure disorder. 11. Paranoid schizophrenia. 12. Depression. Juan Dutta MD Jun 14, 2018 16:23
[2018-06-14] MEDS ORDERED: HYDROcodone/Acetamin 10/325 tab ORAL PRN (16:30)
--- NOTE | 2018-06-14 19:15 | NUR ---
HAND-OFF: Report given to .CK OVALLES
--- NOTE | 2018-06-14 19:50 | NUR ---
NURSE NOTES: Received Pt is resting on the bed and awake and confused. On O2 4L nasal cannula and SaO2 99% noted. On López cath and patent and drainage well. Iv site intact and no sign of infiltration noted. Dressing is clean and dry on wound area. Change to position. Placed fall precaution. Will continue to care plan. Addendum: 06/15/18 at 0117 by CK CHO RN RN charting error for López cath.
[2018-06-14 20:00] VITALS: BP 120/54
--- NOTE | 2018-06-14 20:14 | Consultation ---
DATE OF CONSULTATION: 06/14/2018 CONSULTING PHYSICIAN: Yohan Milian M.D. REFERRING PHYSICIAN: Yonathan Mendoza M.D. REASON FOR CONSULTATION: Management of atrial flutter and evaluation of the patient's pacemaker and elevated troponin. HISTORY OF PRESENT ILLNESS: The patient is a 77-year-old lady who I am quite familiar from multiple previous hospitalizations. The patient has history of hypertension, atrial flutter, congestive heart failure, leadless Medtronic pacemaker as well as coronary artery disease, and seizure disorder. The patient was recently discharged just in May, was brought to the emergency room for increasing shortness of breath and altered mental status. The patient had elevated troponin. Cardiology consultation was obtained for further evaluation and management. REVIEW OF SYSTEMS: Negative other than what was mentioned in history of present illness. PAST MEDICAL HISTORY: Includes, 1. Hypertension. 2. History of atrial flutter. 3. Status post Medtronic Micra leadless pacemaker in 2016. 4. Respiratory failure. 5. Diastolic dysfunction. 6. psychosis. 7. Hypertension. FAMILY HISTORY: Noncontributory. SOCIAL HISTORY: She lives in skilled nursing. Does not smoke or drink alcohol. PHYSICAL EXAMINATION: VITAL SIGNS: Blood pressure is 122/52, pulse is 65, respirations 18, and temperature 97.7 degrees. HEAD AND NECK: Showed no JVD. LUNGS: Clear. CARDIOVASCULAR: Shows regular S1 and S2 with no gallop, rub, or murmur. ABDOMEN: Soft. EXTREMITIES: No pitting edema. LABORATORY DATA: Her white count of , hematocrit of 29.3, and platelet count is 174,000. Sodium is 141, potassium 3.2, CO2 of 45, BUN of 18, and creatinine 0.9. Troponin is 0.005, 0.028, and 0.014. EKG showed atrial flutter with controlled ventricular response. Her BNP is 6700. ASSESSMENT AND PLAN: 1. Atrial flutter. The rate is currently controlled, on no AV yumi blocking agents. 2. Bradycardia, status post Medtronic leadless pacemaker implantation in 2016. 3. Congestive heart failure with diastolic dysfunction, on Lasix 40 mg IV every 8 hours. 4. Chronic obstructive pulmonary disease. 5. Dementia. Thank you very much, Dr. Mendoza, for allowing me to participate in the care of this patient. Please do not hesitate to contact me for any questions regarding my evaluation. Yohan Milian M.D. DR: FREIDA JOB#: [id number] CC:
--- NOTE | 2018-06-14 21:35 | General Progress Note ---
Assessment/Plan Problem List: (1) Paranoid schizophrenia ICD Codes: F20.0 - Paranoid schizophrenia SNOMED: 38630828 (2) encephalopathy due to metabolic factor (3) Major depression ICD Codes: F32.9 - Major depressive disorder, single episode, unspecified SNOMED: 77386657, [id number] Assessment/Plan dc risperdal haldol im for agitation provided ro/st Subjective Neurologic/Psychiatric: Reports: anxiety, depressed, emotional problems Allergies: Coded Allergies: PIPERACILLIN (Unverified Allergy, Unknown, 05/21/18) tolerates cephalosporins TAZOBACTAM (Unverified Allergy, Unknown, 03/10/18) Subjective waxing and waning of consciousness Objective Last 24 Hour Vital Signs Date Time Temp Pulse Resp B/P (MAP) Pulse Ox O2 Delivery O2 Flow Rate FiO2 06/14/18 20:31 70 21 100 Full Face 40 06/14/18 19:45 69 28 Bi-pap 40 06/14/18 19:30 71 27 99 Full Face 40 06/14/18 16:00 73 06/14/18 16:00 Bi-pap 06/14/18 16:00 97.8 77 24 135/64 (87) 100 06/14/18 16:00 4.0 06/14/18 12:00 97.7 73 20 132/54 (80) 98 06/14/18 12:00 Bi-pap 06/14/18 12:00 65 06/14/18 12:00 4.0 06/14/18 09:14 06/14/18 08:59 60 06/14/18 08:15 67 20 100 Full Face 40 06/14/18 08:00 97.7 65 21 122/52 (75) 98 06/14/18 08:00 40 06/14/18 08:00 Bi-pap 06/14/18 06:42 64 17 100 Full Face 40 06/14/18 05:28 65 18 98 Full Face 40 06/14/18 04:00 69 06/14/18 04:00 98.4 70 18 114/45 (68) 98 06/14/18 04:00 Bi-pap 06/14/18 04:00 40 06/14/18 03:22 74 18 99 Full Face 40 06/14/18 03:15 72 18 98 Full Face 40 06/14/18 01:30 70 19 97 Full Face 40 06/14/18 00:00 Bi-pap 06/14/18 00:00 71 06/14/18 00:00 98.3 70 18 110/50 (70) 99 06/14/18 00:00 40 06/13/18 23:19 70 16 97 Full Face 40 06/13/18 22:22 77 27 100 Full Face 40 Intake and Output 06/13/18 06/14/18 18:59 06:59 Intake Total 500 ml 200 ml Output Total 1700 ml 1000 ml Balance -1200 ml -800 ml Intake Oral 500 ml 200 ml Output Urine Total 1700 ml 1000 ml # Bowel Movements 1 1 Laboratory Tests 06/14/18 03:40: White Blood Count 5.2, Red Blood Count 3.34L, Hemoglobin 9.2L, Hematocrit 29.3L , Mean Corpuscular Volume 88, Mean Corpuscular Hemoglobin 27.6, Mean Corpuscular Hemoglobin Concent 31.4L, Red Cell Distribution Width 17.5H, Platelet Count 174, Mean Platelet Volume 7.0, Neutrophils (%) (Auto) 63.7, Lymphocytes (%) (Auto) 23.2, Monocytes (%) (Auto) 10.2H, Eosinophils (%) (Auto) 1.4, Basophils (%) (Auto) 1.5, Sodium Level 141, Potassium Level 3.2L, Chloride Level 95L, Carbon Dioxide Level > 45*H, Blood Urea Nitrogen 18, Creatinine 0.9, Estimat Glomerular Filtration Rate , Glucose Level 75, Calcium Level 8.8, Troponin I 0.014 Height (Feet): 5 Height (Inches): 3.00 Weight (Pounds): 174 General Appearance: confused, agitated, obese Luiz Morrison MD Jun 14, 2018 21:35
[2018-06-15] VITALS: BP 130/62
[2018-06-15 04:00] VITALS: BP 140/53
[2018-06-15 07:15] LABS: BASOPHILS % (AUTO) 1.2 % (0.0-2.0); EOSINOPHILS % (AUTO) 1.6 % (0.0-3.0); HEMATOCRIT 30.6 % (37.0-47.0); HEMOGLOBIN 9.9 G/DL (12.0-16.0); LYMPHOCYTES % (AUTO) 18.4 % (20.0-45.0); MEAN CORPUSCULAR VOLUME 86 FL (80-99); MONOCYTES % (AUTO) 7.9 % (1.0-10.0); NEUTROPHILS % (AUTO) 70.9 % (45.0-75.0); PLATELET COUNT 206 K/UL (150-450); RED BLOOD COUNT 3.54 M/UL (4.20-5.40); RED CELL DISTRIBUTION WIDTH 17.3 % (11.6-14.8)
--- NOTE | 2018-06-15 07:27 | NUR ---
HAND-OFF: Report given to CHARLETTE Singer. Pt is sleeping on the bed and no sign of acute distress noted.
--- NOTE | 2018-06-15 07:28 | NUR ---
NURSE NOTES: Received patient in bed. On nasal cannula at 4LPM. Awake, alert, talkative, able to make some needs known. No respiratory distress. Will continue plan of care.
[2018-06-15 07:38] LABS: ALANINE AMINOTRANSFERASE 14 U/L (12-78); ALBUMIN 2.7 G/DL (3.4-5.0); ALBUMIN/GLOBULIN RATIO 0.9 (1.0-2.7); ALKALINE PHOSPHATASE 51 U/L (46-116); ANION GAP 3 mmol/L (5-15); ASPARTATE AMINO TRANSFERASE 17 U/L (15-37); BILIRUBIN,TOTAL 0.4 MG/DL (0.2-1.0); BLOOD UREA NITROGEN 18 mg/dL (7-18); CALCIUM 8.5 MG/DL (8.5-10.1); CARBON DIOXIDE 40 MMOL/L (21-32); CHLORIDE 94 MMOL/L (98-107); CREATININE 0.7 MG/DL (0.55-1.30); POTASSIUM 3.3 MMOL/L (3.5-5.1); SODIUM 137 MMOL/L (136-145)
[2018-06-15 08:00] VITALS: BP 105/50
[2018-06-15] MEDS: Heparin 5000 units/ml inj SUBQ SCH ×2 (09:24→21:37)
--- NOTE | 2018-06-15 09:35 | NUR ---
RADIOLOGY DEPT CHEST X-RAY DONE.-P.DYE
--- NOTE | 2018-06-15 11:59 | Pulmonology Progress Note ---
Assessment/Plan Problems: (1) Respiratory failure, acute (2) Acute encephalopathy (3) COPD (chronic obstructive pulmonary disease) (4) Acute diastolic CHF (congestive heart failure) (5) Pulmonary edema (6) CAD (coronary artery disease) (7) Dementia (8) Seizure disorder Assessment/Plan diuresed 7 liters so far. off bipap lasix IV check electrolytes, bun and creatinine not rising yet check CXR and BNP daily titrate fio2 to sat of 92% monitor Heart rate cardiology to follow. DVT prophylaxis Subjective ROS Limited/Unobtainable: Yes Interval Events: off bipap, doing well Allergies: Coded Allergies: PIPERACILLIN (Unverified Allergy, Unknown, 05/21/18) tolerates cephalosporins TAZOBACTAM (Unverified Allergy, Unknown, 03/10/18) Objective Last 24 Hour Vital Signs Date Time Temp Pulse Resp B/P (MAP) Pulse Ox O2 Delivery O2 Flow Rate FiO2 06/15/18 10:57 63 100 2.0 28 06/15/18 09:00 65 100 2.0 28 06/15/18 08:00 98.1 69 26 105/50 (68) 98 06/15/18 08:00 69 06/15/18 08:00 Nasal Cannula 4.0 06/15/18 07:01 62 100 2.0 28 06/15/18 04:48 66 100 2.0 28 06/15/18 04:00 97.6 61 18 140/53 (82) 100 06/15/18 04:00 66 06/15/18 04:00 Bi-pap 06/15/18 04:00 40 06/15/18 03:30 62 16 100 Facial 40 06/15/18 01:04 71 20 100 Full Face 40 06/15/18 00:00 Bi-pap 06/15/18 00:00 68 06/15/18 00:00 40 06/15/18 00:00 97.0 64 20 130/62 (84) 100 06/14/18 23:14 98 2.0 28 06/14/18 20:31 70 21 100 Full Face 40 06/14/18 20:00 73 06/14/18 20:00 97.9 99 24 120/54 (76) 100 06/14/18 20:00 Bi-pap 06/14/18 20:00 4.0 06/14/18 19:45 69 28 Bi-pap 40 06/14/18 19:30 71 27 99 Full Face 40 06/14/18 16:00 73 06/14/18 16:00 Bi-pap 06/14/18 16:00 97.8 77 24 135/64 (87) 100 06/14/18 16:00 4.0 06/14/18 12:00 97.7 73 20 132/54 (80) 98 06/14/18 12:00 Bi-pap 06/14/18 12:00 65 06/14/18 12:00 4.0 Intake and Output 06/14/18 06/15/18 19:00 07:00 Intake Total 900 ml 240 ml Output Total 1400 ml 1600 ml Balance -500 ml -1360 ml Intake Oral 700 ml 240 ml IV Total 200 ml Output Urine Total 1400 ml 1600 ml # Bowel Movements 1 Objective off bipap General Appearance: WD/WN HEENT: normocephalic, atraumatic Respiratory/Chest: chest wall non-tender, lungs clear Breasts: no masses Cardiovascular: normal peripheral pulses, normal rate Genitourinary: normal external genitalia Extremities: no cyanosis Skin: no lesions Laboratory Tests 06/15/18 05:25: White Blood Count 6.0, Red Blood Count 3.54L, Hemoglobin 9.9L, Hematocrit 30.6L , Mean Corpuscular Volume 86, Mean Corpuscular Hemoglobin 28.0, Mean Corpuscular Hemoglobin Concent 32.4, Red Cell Distribution Width 17.3H, Platelet Count 206, Mean Platelet Volume 7.4, Neutrophils (%) (Auto) 70.9, Lymphocytes (%) (Auto) 18.4L, Monocytes (%) (Auto) 7.9, Eosinophils (%) (Auto) 1.6, Basophils (%) (Auto) 1.2, Sodium Level 137, Potassium Level 3.3L, Chloride Level 94L, Carbon Dioxide Level 40H, Anion Gap 3L, Blood Urea Nitrogen 18, Creatinine 0.7, Estimat Glomerular Filtration Rate , Glucose Level 86, Calcium Level 8.5, Total Bilirubin 0.4, Aspartate Amino Transf (AST/SGOT) 17, Alanine Aminotransferase (ALT/SGPT) 14, Alkaline Phosphatase 51, Pro-B-Type Natriuretic Peptide 1940H, Total Protein 5.8L, Albumin 2.7L, Globulin 3.1, Albumin/Globulin Ratio 0.9L Current Medications Medications (Trade) Dose Ordered Sig/Ibrahima Route PRN Reason Start Time Stop Time Status Last Admin Dose Admin Acetaminophen (Tylenol) 650 mg Q4H PRN ORAL Fever 06/12/18 07:15 07/12/18 07:14 06/14/18 05:51 Acetaminophen/ Hydrocodone Bitart ([place] 10/325) 1 tab Q4H PRN ORAL Severe Pain (Pain Scale 7-10) 06/14/18 16:30 06/21/18 16:29 Acetaminophen/ Hydrocodone Bitart ([place] 5/325) 1 tab Q4H PRN ORAL Moderate Pain (Pain Scale 4-6) 06/14/18 16:30 06/21/18 16:29 Albuterol/ Ipratropium (Albuterol/ Ipratropium) 3 ml Q4H PRN HHN Shortness of Breath 06/12/18 07:15 06/17/18 07:14 Dextrose (Dextrose 50%) 25 ml Q30M PRN IV Hypoglycemia 06/12/18 07:15 07/12/18 07:14 Dextrose (Dextrose 50%) 50 ml Q30M PRN IV Hypoglycemia 06/12/18 07:15 07/12/18 07:14 Furosemide (Lasix) 40 mg EVERY 8 HOURS IV 06/12/18 14:00 07/12/18 13:59 06/15/18 05:39 Haloperidol Lactate (Haldol) 5 mg Q6H PRN IM Agitation 06/12/18 15:30 07/12/18 15:29 06/12/18 16:59 Heparin Sodium (Porcine) (Heparin 5000 units/ml) 5,000 units EVERY 12 HOURS SUBQ 06/12/18 09:00 07/12/18 08:59 06/15/18 09:24 Ondansetron HCl (Zofran) 4 mg Q6H PRN IVP Nausea & Vomiting 06/12/18 07:15 07/12/18 07:14 Polyethylene Glycol (Miralax) 17 gm DAILYPRN PRN ORAL Constipation 06/12/18 07:15 07/12/18 07:14 06/13/18 15:03 Temazepam (Restoril) 15 mg HSPRN PRN ORAL Insomnia 06/12/18 07:15 06/19/18 07:14 06/13/18 22:03 Mendel Sierra MD Jun 15, 2018 11:59
[2018-06-15 12:00] VITALS: BP 117/55
[2018-06-15] MEDS: Norco 5mg/325mg tab ORAL PRN ×2 (12:40→18:19)
--- NOTE | 2018-06-15 13:15 | Diagnostic Imaging Report ---
Indication: Dyspnea Comparison: 06/13/2018 A single view chest radiograph was obtained. Findings: Interstitial edema suspected. Basilar effusion suspected. Heart is enlarged. IMPRESSION: No change from the prior occasion. CHF/interstitial edema
[2018-06-15 16:00] VITALS: BP 114/54
--- NOTE | 2018-06-15 16:15 | NUR ---
RESPIRATORY NOTE: Patient put back on BIPAP. Settings 12/5, back up rate: 16 , FiO2 30% full face mask, taped up patients face to prevent skin break down. Will continue to monitor patient.
--- NOTE | 2018-06-15 16:23 | Cardiac Electrophysiology PN ---
Assessment/Plan Assessment/Plan 1. Atrial flutter. The rate is currently controlled, on no AV yumi blocking agents. 2. Bradycardia, status post Medtronic leadless pacemaker implantation in 2016. 3. Congestive heart failure with diastolic dysfunction, on Lasix 40 mg IV every 8 hours. 4. Chronic obstructive pulmonary disease. 5. Dementia. Subjective Subjective No events. Comfortable in NAD Objective Last 24 Hour Vital Signs Date Time Temp Pulse Resp B/P (MAP) Pulse Ox O2 Delivery O2 Flow Rate FiO2 06/15/18 15:02 64 100 2.0 28 06/15/18 12:50 67 99 2.0 28 06/15/18 12:00 Nasal Cannula 4.0 06/15/18 12:00 98.4 69 18 117/55 (75) 98 06/15/18 12:00 4.0 06/15/18 11:49 65 06/15/18 10:57 63 100 2.0 28 06/15/18 09:00 65 100 2.0 28 06/15/18 08:00 98.1 69 26 105/50 (68) 98 06/15/18 08:00 69 06/15/18 08:00 Nasal Cannula 4.0 06/15/18 07:01 62 100 2.0 28 06/15/18 04:48 66 100 2.0 28 06/15/18 04:00 97.6 61 18 140/53 (82) 100 06/15/18 04:00 66 06/15/18 04:00 Bi-pap 06/15/18 04:00 40 06/15/18 03:30 62 16 100 Facial 40 06/15/18 01:04 71 20 100 Full Face 40 06/15/18 00:00 Bi-pap 06/15/18 00:00 68 06/15/18 00:00 40 06/15/18 00:00 97.0 64 20 130/62 (84) 100 06/14/18 23:14 98 2.0 28 06/14/18 20:31 70 21 100 Full Face 40 06/14/18 20:00 73 06/14/18 20:00 97.9 99 24 120/54 (76) 100 06/14/18 20:00 Bi-pap 06/14/18 20:00 4.0 06/14/18 19:45 69 28 Bi-pap 40 06/14/18 19:30 71 27 99 Full Face 40 Intake and Output 06/14/18 06/15/18 19:00 07:00 Intake Total 900 ml 240 ml Output Total 1400 ml 1600 ml Balance -500 ml -1360 ml Intake Oral 700 ml 240 ml IV Total 200 ml Output Urine Total 1400 ml 1600 ml # Bowel Movements 1 Laboratory Tests Test 06/15/18 05:25 White Blood Count 6.0 K/UL (4.8-10.8) Red Blood Count 3.54 M/UL (4.20-5.40) L Hemoglobin 9.9 G/DL (12.0-16.0) L Hematocrit 30.6 % (37.0-47.0) L Mean Corpuscular Volume 86 FL (80-99) Mean Corpuscular Hemoglobin 28.0 PG (27.0-31.0) Mean Corpuscular Hemoglobin Concent 32.4 G/DL (32.0-36.0) Red Cell Distribution Width 17.3 % (11.6-14.8) H Platelet Count 206 K/UL (150-450) Mean Platelet Volume 7.4 FL (6.5-10.1) Neutrophils (%) (Auto) 70.9 % (45.0-75.0) Lymphocytes (%) (Auto) 18.4 % (20.0-45.0) L Monocytes (%) (Auto) 7.9 % (1.0-10.0) Eosinophils (%) (Auto) 1.6 % (0.0-3.0) Basophils (%) (Auto) 1.2 % (0.0-2.0) Sodium Level 137 MMOL/L (136-145) Potassium Level 3.3 MMOL/L (3.5-5.1) L Chloride Level 94 MMOL/L (98-107) L Carbon Dioxide Level 40 MMOL/L (21-32) H Anion Gap 3 mmol/L (5-15) L Blood Urea Nitrogen 18 mg/dL (7-18) Creatinine 0.7 MG/DL (0.55-1.30) Estimat Glomerular Filtration Rate mL/min (>60) Glucose Level 86 MG/DL (74-106) Calcium Level 8.5 MG/DL (8.5-10.1) Total Bilirubin 0.4 MG/DL (0.2-1.0) Aspartate Amino Transf (AST/SGOT) 17 U/L (15-37) Alanine Aminotransferase (ALT/SGPT) 14 U/L (12-78) Alkaline Phosphatase 51 U/L (46-116) Pro-B-Type Natriuretic Peptide 1940 pg/mL (0-125) H Total Protein 5.8 G/DL (6.4-8.2) L Albumin 2.7 G/DL (3.4-5.0) L Globulin 3.1 g/dL Albumin/Globulin Ratio 0.9 (1.0-2.7) L Objective HEAD AND NECK: No JVD. LUNGS: Clear. CARDIOVASCULAR: Regular S1 and S2 with no gallop, rub, or murmur. ABDOMEN: Soft. EXTREMITIES: No pitting edema. Yohan Milian MD Jun 15, 2018 16:23
[2018-06-15] MEDS ORDERED: NS 275ml ONE (17:07)
--- NOTE | 2018-06-15 17:39 | NUR ---
RESPIRATORY NOTE: Pt requested for BIPAP to be taken off for dinner. Pt put on 2 L/min NC patient doing fine. Please put back patient on BIPAP after dinner CO2 is high.
--- NOTE | 2018-06-15 18:22 | Internal Med Progress Note ---
Subjective Date of Service: Jun 15, 2018 Physician Name Juan Dutta Attending Physician Yonathan Mendoza MD Current Medications Medications (Trade) Dose Ordered Sig/Ibrahima Route PRN Reason Start Time Stop Time Status Last Admin Dose Admin Acetaminophen (Tylenol) 650 mg Q4H PRN ORAL Fever 06/12/18 07:15 07/12/18 07:14 06/14/18 05:51 Acetaminophen/ Hydrocodone Bitart ([place] 10/325) 1 tab Q4H PRN ORAL Severe Pain (Pain Scale 7-10) 06/14/18 16:30 06/21/18 16:29 Acetaminophen/ Hydrocodone Bitart ([place] 5/325) 1 tab Q4H PRN ORAL Moderate Pain (Pain Scale 4-6) 06/14/18 16:30 06/21/18 16:29 06/15/18 18:19 Albuterol/ Ipratropium (Albuterol/ Ipratropium) 3 ml Q4H PRN HHN Shortness of Breath 06/12/18 07:15 06/17/18 07:14 Dextrose (Dextrose 50%) 25 ml Q30M PRN IV Hypoglycemia 06/12/18 07:15 07/12/18 07:14 Dextrose (Dextrose 50%) 50 ml Q30M PRN IV Hypoglycemia 06/12/18 07:15 07/12/18 07:14 Furosemide (Lasix) 40 mg EVERY 8 HOURS IV 06/12/18 14:00 07/12/18 13:59 06/15/18 14:14 Haloperidol Lactate (Haldol) 5 mg Q6H PRN IM Agitation 06/12/18 15:30 07/12/18 15:29 06/12/18 16:59 Heparin Sodium (Porcine) (Heparin 5000 units/ml) 5,000 units EVERY 12 HOURS SUBQ 06/12/18 09:00 07/12/18 08:59 06/15/18 09:24 Ondansetron HCl (Zofran) 4 mg Q6H PRN IVP Nausea & Vomiting 06/12/18 07:15 07/12/18 07:14 Polyethylene Glycol (Miralax) 17 gm DAILYPRN PRN ORAL Constipation 06/12/18 07:15 07/12/18 07:14 06/13/18 15:03 Temazepam (Restoril) 15 mg HSPRN PRN ORAL Insomnia 06/12/18 07:15 06/19/18 07:14 06/13/18 22:03 Allergies: Coded Allergies: PIPERACILLIN (Unverified Allergy, Unknown, 05/21/18) tolerates cephalosporins TAZOBACTAM (Unverified Allergy, Unknown, 03/10/18) ROS Limited/Unobtainable: No Constitutional: Reports: no symptoms HEENT: Reports: no symptoms Cardiovascular: Reports: no symptoms Respiratory: Reports: shortness of breath Gastrointestinal/Abdominal: Reports: no symptoms Genitourinary: Reports: no symptoms Neurologic/Psychiatric: Reports: no symptoms Subjective 77 YO F admitted with altered mental status. Now CHF. CHRISTOPHER. Cover for Int Med- Dr Mendoza. Off BIPAP; tolerating nasal canula Objective Last Vital Signs Date Time Temp Pulse Resp B/P (MAP) Pulse Ox O2 Delivery O2 Flow Rate FiO2 06/15/18 16:31 74 21 99 Facial 30 06/15/18 16:00 4.0 06/15/18 12:00 98.4 117/55 (75) Laboratory Tests Test 06/15/18 05:25 White Blood Count 6.0 K/UL (4.8-10.8) Red Blood Count 3.54 M/UL (4.20-5.40) L Hemoglobin 9.9 G/DL (12.0-16.0) L Hematocrit 30.6 % (37.0-47.0) L Mean Corpuscular Volume 86 FL (80-99) Mean Corpuscular Hemoglobin 28.0 PG (27.0-31.0) Mean Corpuscular Hemoglobin Concent 32.4 G/DL (32.0-36.0) Red Cell Distribution Width 17.3 % (11.6-14.8) H Platelet Count 206 K/UL (150-450) Mean Platelet Volume 7.4 FL (6.5-10.1) Neutrophils (%) (Auto) 70.9 % (45.0-75.0) Lymphocytes (%) (Auto) 18.4 % (20.0-45.0) L Monocytes (%) (Auto) 7.9 % (1.0-10.0) Eosinophils (%) (Auto) 1.6 % (0.0-3.0) Basophils (%) (Auto) 1.2 % (0.0-2.0) Sodium Level 137 MMOL/L (136-145) Potassium Level 3.3 MMOL/L (3.5-5.1) L Chloride Level 94 MMOL/L (98-107) L Carbon Dioxide Level 40 MMOL/L (21-32) H Anion Gap 3 mmol/L (5-15) L Blood Urea Nitrogen 18 mg/dL (7-18) Creatinine 0.7 MG/DL (0.55-1.30) Estimat Glomerular Filtration Rate mL/min (>60) Glucose Level 86 MG/DL (74-106) Calcium Level 8.5 MG/DL (8.5-10.1) Total Bilirubin 0.4 MG/DL (0.2-1.0) Aspartate Amino Transf (AST/SGOT) 17 U/L (15-37) Alanine Aminotransferase (ALT/SGPT) 14 U/L (12-78) Alkaline Phosphatase 51 U/L (46-116) Pro-B-Type Natriuretic Peptide 1940 pg/mL (0-125) H Total Protein 5.8 G/DL (6.4-8.2) L Albumin 2.7 G/DL (3.4-5.0) L Globulin 3.1 g/dL Albumin/Globulin Ratio 0.9 (1.0-2.7) L Intake and Output 06/14/18 06/15/18 19:00 07:00 Intake Total 900 ml 240 ml Output Total 1400 ml 1600 ml Balance -500 ml -1360 ml Intake Oral 700 ml 240 ml IV Total 200 ml Output Urine Total 1400 ml 1600 ml # Bowel Movements 1 Objective PHYSICAL EXAMINATION: GENERAL: The patient is well-developed, well-nourished white female, who is in moderate respiratory distress. HEENT: Eyes, pupils equal and responsive to light and accommodation. Extraocular movements are intact. NECK: Supple without lymphadenopathy. CHEST: Tolerating nasal canula. Decreased breath sounds bilateral bases with crackles. Otherwise, without wheezes or rales. CARDIOVASCULAR: Tachycardic. Irregular rhythm and irregular rate. S1 and S2 normal without murmurs, rubs, or gallops. ABDOMEN: Soft, nontender, and nondistended. Positive bowel sounds. No evidence of hepatosplenomegaly. Currently, no rebound or guarding noted. EXTREMITIES: Negative for clubbing, cyanosis, or edema. RECTAL/GENITAL: Not performed. NEUROLOGIC: Cranial nerves II through XII are grossly intact without focal deficits. Assessment/Plan Status: progressing Assessment/Plan ASSESSMENT: This is a 77-year-old white female. 1. Congestive heart failure, acute exacerbation. 2. Respiratory failure. 3. Altered mental status. 4. Hypoxia. 5. Atrial flutter. 6. Congestive heart failure. 7. Chronic obstructive pulmonary disease. 8. Coronary artery disease. 9. Hypertension. 10. Seizure disorder. 11. Paranoid schizophrenia. 12. Depression. TREATMENT: 1. Congestive heart failure. Cardiology consultation has been obtained with Dr. Yohan Milian. The patient has been evaluated by Dr. Milian in the past. The patient has an intraventricular pacemaker. We will follow recommendation of Cardiology. 2. Altered mental status, most probably secondary to hypoxia as above. 3. Respiratory failure. See pulmonology note. This is probably secondary to congestive heart failure as above. OFF BIPAP; tolerating nasal canula 4. Hypoxia. 5. Atrial flutter. As above, a Cardiology consultation has been obtained with Dr. Yohan Milian. 6. Congestive heart failure. The patient is currently receiving intravenous Lasix. An echocardiogram is pending. Continue Lasix per Cardiology. 7. Chronic obstructive pulmonary disease. A Pulmonary consultation has been obtained with Dr. Mendel Sierra. We will follow recommendations of Pulmonary. 8. Coronary artery disease. 9. Hypertension. The patient is currently hypotensive. 10. Seizure disorder. 11. Paranoid schizophrenia. 12. Depression. Juan Dutta MD Jun 15, 2018 18:22
--- NOTE | 2018-06-15 19:30 | NUR ---
NURSE NOTES: Received patient from CHARLETTE UMANA.Watching TV comfortably. patient currently on BiPAP 12/5 30% with good seal on face, no leaks. O2 saturation 98-100%. no respiratory distress noted. Denies any pain at this time.Purewick in place with yellow / clear urine draining well.call light in reach. bed in locked and lowest position. safety measures continued. skin remains clean and dry. will resume plan of care.
[2018-06-15] MEDS ORDERED: HYDROcodone/Acetamin 10/325 tab ORAL PRN (20:30)
[2018-06-15 20:40] VITALS: BP 124/54
[2018-06-15] MEDS ORDERED: Albuterol/Ipratropium 3ml neb HHN PRN (21:00)
[2018-06-15] MEDS ORDERED: Haloperidol 5mg/ml Inj IM PRN (21:30)
--- NOTE | 2018-06-15 21:30 | NUR ---
NURSE NOTES: Patient transferred to 408-1 by bed. no acute distress noted upon transfer. no belonging noted.report given to CHARLETTE BRAUN. Addendum: 06/15/18 at 2329 by BROOKE PATTEN RN Patient transferred to at 2030 06/15/2018
[2018-06-15] MEDS ORDERED: Norco 5mg/325mg tab ORAL PRN (22:00)
[2018-06-16 00:07] VITALS: BP 117/59
[2018-06-16 04:00] VITALS: BP 150/64
[2018-06-16] MEDS ORDERED: Miralax 17gm pkt ORAL PRN (07:15)
--- NOTE | 2018-06-16 07:15 | NUR ---
HAND-OFF: Report given to Cali Almonte RN.
--- NOTE | 2018-06-16 07:48 | NUR ---
Received pt from CHARLETTE BRAUN. pt is eating breakfast. Pt is orient x3. pt has NC 4LMP. pt has iv access GABRIELA 22g HL and LH 24g HL. all needs attended, bed is locked and is in the lowest position, call light within easy reach. will continue to monitor.
[2018-06-16 08:00] VITALS: BP 127/50
[2018-06-16] MEDS: Heparin 5000 units/ml inj SUBQ SCH ×2 (08:34→20:26)
--- NOTE | 2018-06-16 09:04 | NUR ---
RESPIRATORY NOTE: Pt is off bipap. no resp distress noted at this time, non-labored breathing. pt is asleep in bed on 4L NC. will follow up with RN about bipap order and previous ABG. no redness or skin breakdown visible from mask. will cont to monitor.
[2018-06-16 09:10] LABS: BASOPHILS % (AUTO) 1.3 % (0.0-2.0); EOSINOPHILS % (AUTO) 2.3 % (0.0-3.0); HEMOGLOBIN 10.4 G/DL (12.0-16.0); LYMPHOCYTES % (AUTO) 21.2 % (20.0-45.0); MEAN CORPUSCULAR VOLUME 87 FL (80-99); MONOCYTES % (AUTO) 7.1 % (1.0-10.0); NEUTROPHILS % (AUTO) 68.2 % (45.0-75.0); PLATELET COUNT 197 K/UL (150-450); RED BLOOD COUNT 3.68 M/UL (4.20-5.40); RED CELL DISTRIBUTION WIDTH 16.9 % (11.6-14.8); WHITE BLOOD COUNT 3.9 K/UL (4.8-10.8)
[2018-06-16 09:35] LABS: ALANINE AMINOTRANSFERASE 14 U/L (12-78); ASPARTATE AMINO TRANSFERASE 16 U/L (15-37); BILIRUBIN,TOTAL 0.4 MG/DL (0.2-1.0); BLOOD UREA NITROGEN 16 mg/dL (7-18); CALCIUM 8.8 MG/DL (8.5-10.1); CHLORIDE 94 MMOL/L (98-107); CREATININE 0.7 MG/DL (0.55-1.30); POTASSIUM 3.1 MMOL/L (3.5-5.1); SODIUM 140 MMOL/L (136-145)
[2018-06-16 09:50] LABS: ALKALINE PHOSPHATASE 54 U/L (46-116); CARBON DIOXIDE 40 MMOL/L (21-32)
--- NOTE | 2018-06-16 09:54 | NUR ---
NURSE NOTES: called Dr engel regarding K 3.1, Waiting to call back. will continue to monitor.
--- NOTE | 2018-06-16 10:01 | NUR ---
NURSE NOTES: Dr engel called back, all orders noted and carried out. will continue to monitor.
--- NOTE | 2018-06-16 10:35 | NUR ---
NURSE NOTES: Dr salazar visited pt and he is aware about K and he confirmed Dr engel order. will continue to monitor.
--- NOTE | 2018-06-16 10:39 | Cardiac Electrophysiology PN ---
Assessment/Plan Assessment/Plan 1. Atrial flutter. The rate is currently controlled, on no AV yumi blocking agents. 2. Bradycardia, status post Medtr[employer] leadless pacemaker implantation in 2016. 3. Congestive heart failure with diastolic dysfunction, on Lasix 40 mg IV every 8 hours. 4. Chronic obstructive pulmonary disease. 5. Dementia. Subjective Subjective No events. Comfortable in NAD. RN at bedside off tele. Objective Last 24 Hour Vital Signs Date Time Temp Pulse Resp B/P (MAP) Pulse Ox O2 Delivery O2 Flow Rate FiO2 06/16/18 09:00 Nasal Cannula 4.0 06/16/18 08:32 79 24 99 4.0 36 06/16/18 08:00 98.0 66 20 127/50 (75) 100 06/16/18 05:09 64 24 97 2.0 28 06/16/18 04:00 98.1 62 20 150/64 (92) 96 06/16/18 03:30 62 21 96 Facial 30 06/16/18 00:07 97.6 73 20 117/59 (78) 96 06/15/18 23:40 78 19 97 Facial 30 06/15/18 21:00 2.0 28 06/15/18 20:41 Nasal Cannula 4.0 06/15/18 20:40 99.0 71 18 124/54 (77) 97 06/15/18 20:00 4.0 30 06/15/18 19:14 76 26 97 Facial 30 06/15/18 18:45 30 06/15/18 17:30 4.0 06/15/18 17:29 30 06/15/18 16:31 74 21 99 Facial 30 06/15/18 16:24 30 06/15/18 16:23 4.0 06/15/18 16:00 98.1 76 26 114/54 (74) 98 06/15/18 16:00 Nasal Cannula 4.0 06/15/18 16:00 73 06/15/18 15:02 64 100 2.0 28 06/15/18 12:50 67 99 2.0 28 06/15/18 12:00 Nasal Cannula 4.0 06/15/18 12:00 98.4 69 18 117/55 (75) 98 06/15/18 12:00 4.0 06/15/18 11:49 65 06/15/18 10:57 63 100 2.0 28 Intake and Output 06/15/18 06/16/18 19:00 07:00 Intake Total 320 ml Output Total 1400 ml Balance 320 ml -1400 ml Intake Oral 120 ml IV Total 200 ml Output Urine Total 1400 ml Laboratory Tests Test 06/16/18 06:32 White Blood Count 3.9 K/UL (4.8-10.8) L Red Blood Count 3.68 M/UL (4.20-5.40) L Hemoglobin 10.4 G/DL (12.0-16.0) L Hematocrit 32.0 % (37.0-47.0) L Mean Corpuscular Volume 87 FL (80-99) Mean Corpuscular Hemoglobin 28.3 PG (27.0-31.0) Mean Corpuscular Hemoglobin Concent 32.6 G/DL (32.0-36.0) Red Cell Distribution Width 16.9 % (11.6-14.8) H Platelet Count 197 K/UL (150-450) Mean Platelet Volume 6.6 FL (6.5-10.1) Neutrophils (%) (Auto) 68.2 % (45.0-75.0) Lymphocytes (%) (Auto) 21.2 % (20.0-45.0) Monocytes (%) (Auto) 7.1 % (1.0-10.0) Eosinophils (%) (Auto) 2.3 % (0.0-3.0) Basophils (%) (Auto) 1.3 % (0.0-2.0) Sodium Level 140 MMOL/L (136-145) Potassium Level 3.1 MMOL/L (3.5-5.1) L Chloride Level 94 MMOL/L (98-107) L Carbon Dioxide Level 40 MMOL/L (21-32) H Blood Urea Nitrogen 16 mg/dL (7-18) Creatinine 0.7 MG/DL (0.55-1.30) Estimat Glomerular Filtration Rate mL/min (>60) Glucose Level 96 MG/DL (74-106) Calcium Level 8.8 MG/DL (8.5-10.1) Total Bilirubin 0.4 MG/DL (0.2-1.0) Aspartate Amino Transf (AST/SGOT) 16 U/L (15-37) Alanine Aminotransferase (ALT/SGPT) 14 U/L (12-78) Alkaline Phosphatase 54 U/L (46-116) Pro-B-Type Natriuretic Peptide 1618 pg/mL (0-125) H Total Protein 6.1 G/DL (6.4-8.2) L Albumin 3.0 G/DL (3.4-5.0) L Globulin 3.1 g/dL Albumin/Globulin Ratio 1.0 (1.0-2.7) Objective HEAD AND NECK: No JVD. LUNGS: Clear. CARDIOVASCULAR: Regular S1 and S2 with no gallop. ABDOMEN: Soft. EXTREMITIES: No pitting edema. Yohan Milian MD Jun 16, 2018 10:39
[2018-06-16 12:00] VITALS: BP 129/61
--- NOTE | 2018-06-16 12:02 | Diagnostic Imaging Report ---
Indication: Dyspnea Comparison: 06/15/2018 A single view chest radiograph was obtained. Findings: Interstitial opacities demonstrated. Left basilar density may be a pleural effusion. Findings are similar and unchanged. IMPRESSION: No change from the prior exam
--- NOTE | 2018-06-16 14:25 | Pulmonology Progress Note ---
Assessment/Plan Problems: (1) Respiratory failure, acute (2) Acute encephalopathy (3) COPD (chronic obstructive pulmonary disease) (4) Acute diastolic CHF (congestive heart failure) (5) Pulmonary edema (6) CAD (coronary artery disease) (7) Dementia (8) Seizure disorder Assessment/Plan off bipap lasix IV check electrolytes, bun and creatinine not rising yet check CXR and BNP daily, getting better titrate fio2 to sat of 92% monitor Heart rate cardiology to follow. DVT prophylaxis Subjective ROS Limited/Unobtainable: No Constitutional: Reports: no symptoms HEENT: Repors: no symptoms Allergies: Coded Allergies: PIPERACILLIN (Unverified Allergy, Unknown, 05/21/18) tolerates cephalosporins TAZOBACTAM (Unverified Allergy, Unknown, 03/10/18) Objective Last 24 Hour Vital Signs Date Time Temp Pulse Resp B/P (MAP) Pulse Ox O2 Delivery O2 Flow Rate FiO2 06/16/18 12:00 98.2 62 20 129/61 (83) 100 06/16/18 09:00 Nasal Cannula 4.0 06/16/18 08:32 79 24 99 4.0 36 06/16/18 08:00 98.0 66 20 127/50 (75) 100 06/16/18 05:09 64 24 97 2.0 28 06/16/18 04:00 98.1 62 20 150/64 (92) 96 06/16/18 03:30 62 21 96 Facial 30 06/16/18 00:07 97.6 73 20 117/59 (78) 96 06/15/18 23:40 78 19 97 Facial 30 06/15/18 21:00 2.0 28 06/15/18 20:41 Nasal Cannula 4.0 06/15/18 20:40 99.0 71 18 124/54 (77) 97 06/15/18 20:00 4.0 30 06/15/18 19:14 76 26 97 Facial 30 06/15/18 18:45 30 06/15/18 17:30 4.0 06/15/18 17:29 30 06/15/18 16:31 74 21 99 Facial 30 06/15/18 16:24 30 06/15/18 16:23 4.0 06/15/18 16:00 98.1 76 26 114/54 (74) 98 06/15/18 16:00 Nasal Cannula 4.0 06/15/18 16:00 73 06/15/18 15:02 64 100 2.0 28 Intake and Output 06/15/18 06/16/18 19:00 07:00 Intake Total 320 ml Output Total 1400 ml Balance 320 ml -1400 ml Intake Oral 120 ml IV Total 200 ml Output Urine Total 1400 ml Objective off bipap, looks better General Appearance: no acute distress HEENT: normocephalic, anicteric Respiratory/Chest: chest wall non-tender, normal breath sounds Breasts: no masses Cardiovascular: normal peripheral pulses, normal rate Abdomen: normal bowel sounds, no organomegaly, no scars Extremities: no cyanosis Skin: no rash Laboratory Tests 06/16/18 06:32: White Blood Count 3.9L, Red Blood Count 3.68L, Hemoglobin 10.4L, Hematocrit 32.0L, Mean Corpuscular Volume 87, Mean Corpuscular Hemoglobin 28.3, Mean Corpuscular Hemoglobin Concent 32.6, Red Cell Distribution Width 16.9H, Platelet Count 197, Mean Platelet Volume 6.6, Neutrophils (%) (Auto) 68.2, Lymphocytes (%) (Auto) 21.2, Monocytes (%) (Auto) 7.1, Eosinophils (%) (Auto) 2.3, Basophils (%) (Auto) 1.3, Sodium Level 140, Potassium Level 3.1L, Chloride Level 94L, Carbon Dioxide Level 40H, Blood Urea Nitrogen 16, Creatinine 0.7, Estimat Glomerular Filtration Rate , Glucose Level 96, Calcium Level 8.8, Total Bilirubin 0.4, Aspartate Amino Transf (AST/SGOT) 16, Alanine Aminotransferase ( ALT/SGPT) 14, Alkaline Phosphatase 54, Pro-B-Type Natriuretic Peptide 1618H, Total Protein 6.1L, Albumin 3.0L, Globulin 3.1, Albumin/Globulin Ratio 1.0 Current Medications Medications (Trade) Dose Ordered Sig/Ibrahima Route PRN Reason Start Time Stop Time Status Last Admin Dose Admin Acetaminophen (Tylenol) 650 mg Q4H PRN ORAL Fever 06/15/18 21:00 07/12/18 20:59 Acetaminophen/ Hydrocodone Bitart ([place] 10/325) 1 tab Q4H PRN ORAL Severe Pain (Pain Scale 7-10) 06/15/18 20:30 06/21/18 16:29 Acetaminophen/ Hydrocodone Bitart ([place] 5/325) 1 tab Q4H PRN ORAL Moderate Pain (Pain Scale 4-6) 06/15/18 22:00 06/21/18 21:59 Albuterol/ Ipratropium (Albuterol/ Ipratropium) 3 ml Q4H PRN HHN Shortness of Breath 06/15/18 21:00 06/17/18 20:59 Dextrose (Dextrose 50%) 25 ml Q30M PRN IV Hypoglycemia 06/15/18 20:15 07/12/18 07:14 Dextrose (Dextrose 50%) 50 ml Q30M PRN IV Hypoglycemia 06/15/18 20:15 07/12/18 07:14 Furosemide (Lasix) 40 mg EVERY 8 HOURS IV 06/15/18 22:00 07/12/18 13:59 06/16/18 13:28 Haloperidol Lactate (Haldol) 5 mg Q6H PRN IM Agitation 06/15/18 21:30 07/12/18 15:29 Heparin Sodium (Porcine) (Heparin 5000 units/ml) 5,000 units EVERY 12 HOURS SUBQ 06/15/18 21:00 07/12/18 08:59 06/16/18 08:34 Ondansetron HCl (Zofran) 4 mg Q6H PRN IVP Nausea & Vomiting 06/15/18 21:00 07/15/18 20:59 Polyethylene Glycol (Miralax) 17 gm DAILYPRN PRN ORAL Constipation 06/16/18 07:15 07/12/18 07:14 Temazepam (Restoril) 15 mg HSPRN PRN ORAL Insomnia 06/15/18 21:00 06/22/18 20:59 06/15/18 21:37 Mendel Sierra MD Jun 16, 2018 14:25
--- NOTE | 2018-06-16 14:26 | General Progress Note ---
Assessment/Plan Problem List: (1) Paranoid schizophrenia ICD Codes: F20.0 - Paranoid schizophrenia SNOMED: 80380798 (2) encephalopathy due to metabolic factor (3) Major depression ICD Codes: F32.9 - Major depressive disorder, single episode, unspecified SNOMED: 70433171, [id number] Status: stable, progressing Assessment/Plan risperdal 1mg po qhs haldol im for agitation provided ro/st Subjective Neurologic/Psychiatric: Reports: anxiety, depressed Allergies: Coded Allergies: PIPERACILLIN (Unverified Allergy, Unknown, 05/21/18) tolerates cephalosporins TAZOBACTAM (Unverified Allergy, Unknown, 03/10/18) Subjective the pt is more alert and is able to answer the questions/ Objective Last 24 Hour Vital Signs Date Time Temp Pulse Resp B/P (MAP) Pulse Ox O2 Delivery O2 Flow Rate FiO2 06/16/18 12:00 98.2 62 20 129/61 (83) 100 06/16/18 09:00 Nasal Cannula 4.0 06/16/18 08:32 79 24 99 4.0 36 06/16/18 08:00 98.0 66 20 127/50 (75) 100 06/16/18 05:09 64 24 97 2.0 28 06/16/18 04:00 98.1 62 20 150/64 (92) 96 06/16/18 03:30 62 21 96 Facial 30 06/16/18 00:07 97.6 73 20 117/59 (78) 96 06/15/18 23:40 78 19 97 Facial 30 06/15/18 21:00 2.0 28 06/15/18 20:41 Nasal Cannula 4.0 06/15/18 20:40 99.0 71 18 124/54 (77) 97 06/15/18 20:00 4.0 30 06/15/18 19:14 76 26 97 Facial 30 06/15/18 18:45 30 06/15/18 17:30 4.0 06/15/18 17:29 30 06/15/18 16:31 74 21 99 Facial 30 06/15/18 16:24 30 06/15/18 16:23 4.0 06/15/18 16:00 98.1 76 26 114/54 (74) 98 06/15/18 16:00 Nasal Cannula 4.0 06/15/18 16:00 73 06/15/18 15:02 64 100 2.0 28 Intake and Output 06/15/18 06/16/18 19:00 07:00 Intake Total 320 ml Output Total 1400 ml Balance 320 ml -1400 ml Intake Oral 120 ml IV Total 200 ml Output Urine Total 1400 ml Laboratory Tests 06/16/18 06:32: White Blood Count 3.9L, Red Blood Count 3.68L, Hemoglobin 10.4L, Hematocrit 32.0L, Mean Corpuscular Volume 87, Mean Corpuscular Hemoglobin 28.3, Mean Corpuscular Hemoglobin Concent 32.6, Red Cell Distribution Width 16.9H, Platelet Count 197, Mean Platelet Volume 6.6, Neutrophils (%) (Auto) 68.2, Lymphocytes (%) (Auto) 21.2, Monocytes (%) (Auto) 7.1, Eosinophils (%) (Auto) 2.3, Basophils (%) (Auto) 1.3, Sodium Level 140, Potassium Level 3.1L, Chloride Level 94L, Carbon Dioxide Level 40H, Blood Urea Nitrogen 16, Creatinine 0.7, Estimat Glomerular Filtration Rate , Glucose Level 96, Calcium Level 8.8, Total Bilirubin 0.4, Aspartate Amino Transf (AST/SGOT) 16, Alanine Aminotransferase ( ALT/SGPT) 14, Alkaline Phosphatase 54, Pro-B-Type Natriuretic Peptide 1618H, Total Protein 6.1L, Albumin 3.0L, Globulin 3.1, Albumin/Globulin Ratio 1.0 Height (Feet): 5 Height (Inches): 3.00 Weight (Pounds): 186 General Appearance: alert, moderate distress Neurologic: oriented x 3, responsive, depressed affect Luiz Morrison MD Jun 16, 2018 14:26
--- NOTE | 2018-06-16 15:00 | NUR ---
NURSE NOTES: Received report from CHARLETTE Leiva, Patient on Nasal cannula at 4 Liter, no sign of distress and shortness of breath. No sign of chest pain. Patient alert 33, forget full. Skin-right buttock redness and Right forarm wound which is healed. IV on Right upper arm and Left hand both are saln lock. Isolation for MSA and VRE history, sign at the door. Pace maker at the right chest. Weakness on the lower extremities. BIPAP at the bed side for PRN. Bed at lowest position, side rails up and breaks engaged. Call light within reach. Will keep monitoring.
--- NOTE | 2018-06-16 15:03 | NUR ---
HAND-OFF: Report given to CHARLETTE MARTINO.
[2018-06-16 16:00] VITALS: BP 132/65
--- NOTE | 2018-06-16 16:50 | Internal Med Progress Note ---
Subjective Date of Service: Jun 16, 2018 Physician Name Juan Dutta Attending Physician Yonathan Mendoza MD Current Medications Medications (Trade) Dose Ordered Sig/Ibrahima Route PRN Reason Start Time Stop Time Status Last Admin Dose Admin Acetaminophen (Tylenol) 650 mg Q4H PRN ORAL Fever 06/15/18 21:00 07/12/18 20:59 Acetaminophen/ Hydrocodone Bitart ([place] 10/325) 1 tab Q4H PRN ORAL Severe Pain (Pain Scale 7-10) 06/15/18 20:30 06/21/18 16:29 Acetaminophen/ Hydrocodone Bitart ([place] 5/325) 1 tab Q4H PRN ORAL Moderate Pain (Pain Scale 4-6) 06/15/18 22:00 06/21/18 21:59 Albuterol/ Ipratropium (Albuterol/ Ipratropium) 3 ml Q4H PRN HHN Shortness of Breath 06/15/18 21:00 06/17/18 20:59 Dextrose (Dextrose 50%) 25 ml Q30M PRN IV Hypoglycemia 06/15/18 20:15 07/12/18 07:14 Dextrose (Dextrose 50%) 50 ml Q30M PRN IV Hypoglycemia 06/15/18 20:15 07/12/18 07:14 Furosemide (Lasix) 40 mg EVERY 8 HOURS IV 06/15/18 22:00 07/12/18 13:59 06/16/18 13:28 Haloperidol Lactate (Haldol) 5 mg Q6H PRN IM Agitation 06/15/18 21:30 07/12/18 15:29 Heparin Sodium (Porcine) (Heparin 5000 units/ml) 5,000 units EVERY 12 HOURS SUBQ 06/15/18 21:00 07/12/18 08:59 06/16/18 08:34 Ondansetron HCl (Zofran) 4 mg Q6H PRN IVP Nausea & Vomiting 06/15/18 21:00 07/15/18 20:59 Polyethylene Glycol (Miralax) 17 gm DAILYPRN PRN ORAL Constipation 06/16/18 07:15 07/12/18 07:14 Risperidone (RisperDAL) 1 mg BEDTIME ORAL 06/16/18 21:00 07/16/18 20:59 Temazepam (Restoril) 15 mg HSPRN PRN ORAL Insomnia 06/15/18 21:00 06/22/18 20:59 06/15/18 21:37 Allergies: Coded Allergies: PIPERACILLIN (Unverified Allergy, Unknown, 05/21/18) tolerates cephalosporins TAZOBACTAM (Unverified Allergy, Unknown, 03/10/18) ROS Limited/Unobtainable: No Constitutional: Reports: no symptoms HEENT: Reports: no symptoms Cardiovascular: Reports: no symptoms Respiratory: Reports: shortness of breath Gastrointestinal/Abdominal: Reports: no symptoms Genitourinary: Reports: no symptoms Neurologic/Psychiatric: Reports: no symptoms Subjective 77 YO F admitted with altered mental status. Now CHF. CHRISTOPHER. Cover for Int Jose A- Dr Mendoza. Off BIPAP; tolerating nasal canula Objective Last Vital Signs Date Time Temp Pulse Resp B/P (MAP) Pulse Ox O2 Delivery O2 Flow Rate FiO2 06/16/18 16:00 97.8 65 20 132/65 (87) 100 06/16/18 09:00 Nasal Cannula 4.0 06/16/18 08:32 36 Laboratory Tests Test 06/16/18 06:32 White Blood Count 3.9 K/UL (4.8-10.8) L Red Blood Count 3.68 M/UL (4.20-5.40) L Hemoglobin 10.4 G/DL (12.0-16.0) L Hematocrit 32.0 % (37.0-47.0) L Mean Corpuscular Volume 87 FL (80-99) Mean Corpuscular Hemoglobin 28.3 PG (27.0-31.0) Mean Corpuscular Hemoglobin Concent 32.6 G/DL (32.0-36.0) Red Cell Distribution Width 16.9 % (11.6-14.8) H Platelet Count 197 K/UL (150-450) Mean Platelet Volume 6.6 FL (6.5-10.1) Neutrophils (%) (Auto) 68.2 % (45.0-75.0) Lymphocytes (%) (Auto) 21.2 % (20.0-45.0) Monocytes (%) (Auto) 7.1 % (1.0-10.0) Eosinophils (%) (Auto) 2.3 % (0.0-3.0) Basophils (%) (Auto) 1.3 % (0.0-2.0) Sodium Level 140 MMOL/L (136-145) Potassium Level 3.1 MMOL/L (3.5-5.1) L Chloride Level 94 MMOL/L (98-107) L Carbon Dioxide Level 40 MMOL/L (21-32) H Blood Urea Nitrogen 16 mg/dL (7-18) Creatinine 0.7 MG/DL (0.55-1.30) Estimat Glomerular Filtration Rate mL/min (>60) Glucose Level 96 MG/DL (74-106) Calcium Level 8.8 MG/DL (8.5-10.1) Total Bilirubin 0.4 MG/DL (0.2-1.0) Aspartate Amino Transf (AST/SGOT) 16 U/L (15-37) Alanine Aminotransferase (ALT/SGPT) 14 U/L (12-78) Alkaline Phosphatase 54 U/L (46-116) Pro-B-Type Natriuretic Peptide 1618 pg/mL (0-125) H Total Protein 6.1 G/DL (6.4-8.2) L Albumin 3.0 G/DL (3.4-5.0) L Globulin 3.1 g/dL Albumin/Globulin Ratio 1.0 (1.0-2.7) Intake and Output 06/15/18 06/16/18 18:59 06:59 Intake Total 320 ml Output Total 1400 ml Balance 320 ml -1400 ml Intake Oral 120 ml IV Total 200 ml Output Urine Total 1400 ml Objective PHYSICAL EXAMINATION: GENERAL: The patient is well-developed, well-nourished white female, who is in moderate respiratory distress. HEENT: Eyes, pupils equal and responsive to light and accommodation. Extraocular movements are intact. NECK: Supple without lymphadenopathy. CHEST: Tolerating nasal canula. Decreased breath sounds bilateral bases with crackles. Otherwise, without wheezes or rales. CARDIOVASCULAR: Tachycardic. Irregular rhythm and irregular rate. S1 and S2 normal without murmurs, rubs, or gallops. ABDOMEN: Soft, nontender, and nondistended. Positive bowel sounds. No evidence of hepatosplenomegaly. Currently, no rebound or guarding noted. EXTREMITIES: Negative for clubbing, cyanosis, or edema. RECTAL/GENITAL: Not performed. NEUROLOGIC: Cranial nerves II through XII are grossly intact without focal deficits. Assessment/Plan Status: progressing Assessment/Plan ASSESSMENT: This is a 77-year-old white female. 1. Congestive heart failure, acute exacerbation. 2. Respiratory failure. 3. Altered mental status. 4. Hypoxia. 5. Atrial flutter. 6. Congestive heart failure. 7. Chronic obstructive pulmonary disease. 8. Coronary artery disease. 9. Hypertension. 10. Seizure disorder. 11. Paranoid schizophrenia. 12. Depression. TREATMENT: 1. Congestive heart failure. Cardiology consultation has been obtained with Dr. Yohan Milian. The patient has been evaluated by Dr. Milian in the past. The patient has an intraventricular pacemaker. We will follow recommendation of Cardiology. 2. Altered mental status, most probably secondary to hypoxia as above. 3. Respiratory failure. See pulmonology note. This is probably secondary to congestive heart failure as above. OFF BIPAP; tolerating nasal canula 4. Hypoxia. 5. Atrial flutter. As above, a Cardiology consultation has been obtained with Dr. Yohan Milian. 6. Congestive heart failure. The patient is currently receiving intravenous Lasix. An echocardiogram is pending. Continue Lasix per Cardiology. 7. Chronic obstructive pulmonary disease. A Pulmonary consultation has been obtained with Dr. Mendel Sierra. We will follow recommendations of Pulmonary. 8. Coronary artery disease. 9. Hypertension. The patient is currently hypotensive. 10. Seizure disorder. 11. Paranoid schizophrenia. 12. Depression. Juan Dutta MD Jun 16, 2018 16:50
--- NOTE | 2018-06-16 19:04 | NUR ---
HAND-OFF: Report given to CHARLETTE Denise.
--- NOTE | 2018-06-16 19:50 | NUR ---
NURSE NOTES: Received patient awake,alert,verbal,resting in bed,comfortable.
[2018-06-16 19:57] VITALS: BP 116/46
[2018-06-17 00:19] VITALS: BP 114/56
[2018-06-17 04:12] VITALS: BP 130/57
[2018-06-17 06:41] LABS: BASOPHILS % (AUTO) 0.9 % (0.0-2.0); EOSINOPHILS % (AUTO) 0.7 % (0.0-3.0); HEMATOCRIT 31.3 % (37.0-47.0); HEMOGLOBIN 9.8 G/DL (12.0-16.0); LYMPHOCYTES % (AUTO) 19.8 % (20.0-45.0); MEAN CORPUSCULAR VOLUME 87 FL (80-99); MONOCYTES % (AUTO) 7.6 % (1.0-10.0); PLATELET COUNT 180 K/UL (150-450); RED BLOOD COUNT 3.61 M/UL (4.20-5.40); WHITE BLOOD COUNT 7.9 K/UL (4.8-10.8)
[2018-06-17 06:51] LABS: ANION GAP 1 mmol/L (5-15); BLOOD UREA NITROGEN 19 mg/dL (7-18); CALCIUM 8.9 MG/DL (8.5-10.1); CARBON DIOXIDE 40 MMOL/L (21-32); CHLORIDE 97 MMOL/L (98-107); CREATININE 0.7 MG/DL (0.55-1.30); POTASSIUM 3.2 MMOL/L (3.5-5.1); SODIUM 138 MMOL/L (136-145)
--- NOTE | 2018-06-17 07:12 | NUR ---
HAND-OFF: Report given to Madai Del Cid RN.
--- NOTE | 2018-06-17 07:27 | NUR ---
NURSE NOTES: Received report from CHARLETTE Denise. Pt is in the bed, on the NC. No s/s of respiratory distress or discomfort noted. Bed is in the lowest position. Call light is within the reach. Will continue to monitor
[2018-06-17 08:00] VITALS: BP 114/49
[2018-06-17] MEDS: Heparin 5000 units/ml inj SUBQ SCH ×2 (09:00→20:34)
--- NOTE | 2018-06-17 10:17 | NUR ---
RD ASSESSMENT & RECOMMENDATIONS SEE CARE ACTIVITY FOR COMPLETE ASSESSMENT DAILY ESTIMATED NEEDS: Needs based on Pulmonary, Cardiac/ 55kg abw 25-30 kcals/kg [id number] total kcals 1-1.5 g protein/kg 55-83 g total protein 20-25 mL/kg 1744-1279 total fluid mLs NUTRITION DIAGNOSIS: * Altered nutrition related lab values R/T respiratory status, cardiac h/o, clinical condition as evidenced by elev BG (205-> now wnl), elev BNP (6705-> 1618 trend down), critically elev CO2 (44) and critically elev PCO2 and HCO3, was trending down, not updated, low K (3.2). * Increased protein and micronutrients intake needs R/T wound healing as evidenced by pt admitted w/ rt buttock stage 2 wound. CURRENT DIET:RENAL PO DIET RECOMMENDATIONS: LOW NA/ Texture as tolerated (RENAL DIET IS NOT NECESSARY) ADDITIONAL RECOMMENDATIONS: * Calibrated bedscale wt for accurate CBW -daily wts per policy: CHF dx * A1C for eval of glycemic control (BG of 205 upon adm, now wnl) * Wound healing: add MVI x 1, Vit C 500mg QD, Cristian 1pkt BID * Monitor lytes daily while on lasix, replete as needed (low K) . .
--- NOTE | 2018-06-17 11:26 | Internal Med Progress Note ---
Subjective Date of Service: Jun 17, 2018 Physician Name Juan Dutta Attending Physician Yonathan Mendoza MD Current Medications Medications (Trade) Dose Ordered Sig/Ibrahima Route PRN Reason Start Time Stop Time Status Last Admin Dose Admin Acetaminophen (Tylenol) 650 mg Q4H PRN ORAL Fever 06/15/18 21:00 07/12/18 20:59 Acetaminophen/ Hydrocodone Bitart ([place] 10/325) 1 tab Q4H PRN ORAL Severe Pain (Pain Scale 7-10) 06/15/18 20:30 06/21/18 16:29 Acetaminophen/ Hydrocodone Bitart ([place] 5/325) 1 tab Q4H PRN ORAL Moderate Pain (Pain Scale 4-6) 06/15/18 22:00 06/21/18 21:59 Albuterol/ Ipratropium (Albuterol/ Ipratropium) 3 ml Q4H PRN HHN Shortness of Breath 06/15/18 21:00 06/17/18 20:59 Dextrose (Dextrose 50%) 25 ml Q30M PRN IV Hypoglycemia 06/15/18 20:15 07/12/18 07:14 Dextrose (Dextrose 50%) 50 ml Q30M PRN IV Hypoglycemia 06/15/18 20:15 07/12/18 07:14 Furosemide (Lasix) 40 mg EVERY 8 HOURS IV 06/15/18 22:00 07/12/18 13:59 06/17/18 05:40 Haloperidol Lactate (Haldol) 5 mg Q6H PRN IM Agitation 06/15/18 21:30 07/12/18 15:29 Heparin Sodium (Porcine) (Heparin 5000 units/ml) 5,000 units EVERY 12 HOURS SUBQ 06/15/18 21:00 07/12/18 08:59 06/16/18 20:26 Ondansetron HCl (Zofran) 4 mg Q6H PRN IVP Nausea & Vomiting 06/15/18 21:00 07/15/18 20:59 Polyethylene Glycol (Miralax) 17 gm DAILYPRN PRN ORAL Constipation 06/16/18 07:15 07/12/18 07:14 Risperidone (RisperDAL) 1 mg BEDTIME ORAL 06/16/18 21:00 07/16/18 20:59 06/16/18 20:25 Temazepam (Restoril) 15 mg HSPRN PRN ORAL Insomnia 06/15/18 21:00 06/22/18 20:59 06/16/18 20:25 Allergies: Coded Allergies: PIPERACILLIN (Unverified Allergy, Unknown, 05/21/18) tolerates cephalosporins TAZOBACTAM (Unverified Allergy, Unknown, 03/10/18) ROS Limited/Unobtainable: No Constitutional: Reports: no symptoms HEENT: Reports: no symptoms Cardiovascular: Reports: no symptoms Respiratory: Reports: no symptoms Gastrointestinal/Abdominal: Reports: no symptoms Genitourinary: Reports: no symptoms Neurologic/Psychiatric: Reports: no symptoms Subjective 77 YO F admitted with altered mental status. Now CHF. CHRISTOPHER. Cover for Int Med- Dr Mendoza. Off BIPAP; tolerating nasal canula Objective Last Vital Signs Date Time Temp Pulse Resp B/P (MAP) Pulse Ox O2 Delivery O2 Flow Rate FiO2 06/17/18 04:56 62 18 97 Facial 40 06/17/18 04:12 99.1 130/57 (81) 06/16/18 20:01 2.0 Laboratory Tests Test 06/17/18 06:05 White Blood Count 7.9 K/UL (4.8-10.8) # Red Blood Count 3.61 M/UL (4.20-5.40) L Hemoglobin 9.8 G/DL (12.0-16.0) L Hematocrit 31.3 % (37.0-47.0) L Mean Corpuscular Volume 87 FL (80-99) Mean Corpuscular Hemoglobin 27.2 PG (27.0-31.0) Mean Corpuscular Hemoglobin Concent 31.4 G/DL (32.0-36.0) L Red Cell Distribution Width 16.0 % (11.6-14.8) H Platelet Count 180 K/UL (150-450) Mean Platelet Volume 6.8 FL (6.5-10.1) Neutrophils (%) (Auto) 71.0 % (45.0-75.0) Lymphocytes (%) (Auto) 19.8 % (20.0-45.0) L Monocytes (%) (Auto) 7.6 % (1.0-10.0) Eosinophils (%) (Auto) 0.7 % (0.0-3.0) Basophils (%) (Auto) 0.9 % (0.0-2.0) Sodium Level 138 MMOL/L (136-145) Potassium Level 3.2 MMOL/L (3.5-5.1) L Chloride Level 97 MMOL/L (98-107) L Carbon Dioxide Level 40 MMOL/L (21-32) H Anion Gap 1 mmol/L (5-15) L Blood Urea Nitrogen 19 mg/dL (7-18) H Creatinine 0.7 MG/DL (0.55-1.30) Estimat Glomerular Filtration Rate mL/min (>60) Glucose Level 94 MG/DL (74-106) Calcium Level 8.9 MG/DL (8.5-10.1) Intake and Output 06/16/18 06/17/18 19:00 07:00 Intake Total 960 ml Output Total 1200 ml Balance -240 ml Intake Oral 960 ml Output Urine Total 1200 ml # Voids 1 2 Objective PHYSICAL EXAMINATION: GENERAL: The patient is well-developed, well-nourished white female, who is in moderate respiratory distress. HEENT: Eyes, pupils equal and responsive to light and accommodation. Extraocular movements are intact. NECK: Supple without lymphadenopathy. CHEST: Tolerating nasal canula. Decreased breath sounds bilateral bases with crackles. Otherwise, without wheezes or rales. CARDIOVASCULAR: Tachycardic. Irregular rhythm and irregular rate. S1 and S2 normal without murmurs, rubs, or gallops. ABDOMEN: Soft, nontender, and nondistended. Positive bowel sounds. No evidence of hepatosplenomegaly. Currently, no rebound or guarding noted. EXTREMITIES: Negative for clubbing, cyanosis, or edema. RECTAL/GENITAL: Not performed. NEUROLOGIC: Cranial nerves II through XII are grossly intact without focal deficits. Assessment/Plan Assessment/Plan ASSESSMENT: This is a 77-year-old white female. 1. Congestive heart failure, acute exacerbation. 2. Respiratory failure. 3. Altered mental status. 4. Hypoxia. 5. Atrial flutter. 6. Congestive heart failure. 7. Chronic obstructive pulmonary disease. 8. Coronary artery disease. 9. Hypertension. 10. Seizure disorder. 11. Paranoid schizophrenia. 12. Depression. TREATMENT: 1. Congestive heart failure. Cardiology consultation has been obtained with Dr. Yohan Milian. The patient has been evaluated by Dr. Milian in the past. The patient has an intraventricular pacemaker. We will follow recommendation of Cardiology. 2. Altered mental status, most probably secondary to hypoxia as above. 3. Respiratory failure. See pulmonology note. This is probably secondary to congestive heart failure as above. OFF BIPAP; tolerating nasal canula 4. Hypoxia. 5. Atrial flutter. As above, a Cardiology consultation has been obtained with Dr. Yohan Milian. 6. Congestive heart failure. The patient is currently receiving intravenous Lasix. An echocardiogram is pending. Continue Lasix per Cardiology. 7. Chronic obstructive pulmonary disease. A Pulmonary consultation has been obtained with Dr. Mendel Sierra. We will follow recommendations of Pulmonary. 8. Coronary artery disease. 9. Hypertension. The patient is currently hypotensive. 10. Seizure disorder. 11. Paranoid schizophrenia. 12. Depression. 13. Discharge planning: Rehab on [place] [facility] Juan Dutta MD Jun 17, 2018 11:26
[2018-06-17] MEDS ORDERED: HYDROcodone/Acetamin 10/325 ORAL (11:46)
[2018-06-17] MEDS ORDERED: RESTORIL15 MG ORAL (11:46)
[2018-06-17] MEDS ORDERED: RISPERDAL1 MG ORAL (11:46)
[2018-06-17] MEDS ORDERED: MIRALAX17 GM ORAL (11:46)
[2018-06-17] MEDS ORDERED: NORCO 5-325 TA1 EACH ORAL (11:46)
[2018-06-17 12:00] VITALS: BP 123/58
--- NOTE | 2018-06-17 13:57 | Cardiac Electrophysiology PN ---
Assessment/Plan Assessment/Plan 1. Atrial flutter. The rate is controlled off AV yumi blocking agents. 2. Bradycardia, status post Medtronic leadless pacemaker implantation in 2016. 3. Congestive heart failure with diastolic dysfunction, on Lasix 40 mg IV every 8 hours. 4. Chronic obstructive pulmonary disease. 5. Dementia. DYLAN RN Subjective Subjective No events. Comfortable in NAD.No Cp or SOB Objective Last 24 Hour Vital Signs Date Time Temp Pulse Resp B/P (MAP) Pulse Ox O2 Delivery O2 Flow Rate FiO2 06/17/18 12:00 98.7 75 20 123/58 (79) 98 06/17/18 09:00 Nasal Cannula 2.0 06/17/18 08:00 99.5 78 21 114/49 (70) 98 06/17/18 04:56 62 18 97 Facial 40 06/17/18 04:12 99.1 73 20 130/57 (81) 93 06/17/18 01:24 66 18 98 Facial 40 06/17/18 00:19 99.3 77 18 114/56 (75) 98 06/16/18 20:01 Nasal Cannula 2.0 06/16/18 19:57 99.2 74 18 116/46 (69) 99 06/16/18 16:00 97.8 65 20 132/65 (87) 100 Intake and Output 06/16/18 06/17/18 19:00 07:00 Intake Total 960 ml Output Total 1200 ml Balance -240 ml Intake Oral 960 ml Output Urine Total 1200 ml # Voids 1 2 Laboratory Tests Test 06/17/18 06:05 White Blood Count 7.9 K/UL (4.8-10.8) # Red Blood Count 3.61 M/UL (4.20-5.40) L Hemoglobin 9.8 G/DL (12.0-16.0) L Hematocrit 31.3 % (37.0-47.0) L Mean Corpuscular Volume 87 FL (80-99) Mean Corpuscular Hemoglobin 27.2 PG (27.0-31.0) Mean Corpuscular Hemoglobin Concent 31.4 G/DL (32.0-36.0) L Red Cell Distribution Width 16.0 % (11.6-14.8) H Platelet Count 180 K/UL (150-450) Mean Platelet Volume 6.8 FL (6.5-10.1) Neutrophils (%) (Auto) 71.0 % (45.0-75.0) Lymphocytes (%) (Auto) 19.8 % (20.0-45.0) L Monocytes (%) (Auto) 7.6 % (1.0-10.0) Eosinophils (%) (Auto) 0.7 % (0.0-3.0) Basophils (%) (Auto) 0.9 % (0.0-2.0) Sodium Level 138 MMOL/L (136-145) Potassium Level 3.2 MMOL/L (3.5-5.1) L Chloride Level 97 MMOL/L (98-107) L Carbon Dioxide Level 40 MMOL/L (21-32) H Anion Gap 1 mmol/L (5-15) L Blood Urea Nitrogen 19 mg/dL (7-18) H Creatinine 0.7 MG/DL (0.55-1.30) Estimat Glomerular Filtration Rate mL/min (>60) Glucose Level 94 MG/DL (74-106) Calcium Level 8.9 MG/DL (8.5-10.1) Objective HEAD AND NECK: No JVD. LUNGS: Clear. CARDIOVASCULAR: Regular S1 and S2 with no gallop. ABDOMEN: Soft. EXTREMITIES: No pitting edema. Yohan Milian MD Jun 17, 2018 13:57
--- NOTE | 2018-06-17 15:54 | Pulmonology Progress Note ---
Assessment/Plan Problems: (1) Respiratory failure, acute (2) Acute encephalopathy (3) COPD (chronic obstructive pulmonary disease) (4) Acute diastolic CHF (congestive heart failure) (5) Pulmonary edema (6) CAD (coronary artery disease) (7) Dementia (8) Seizure disorder Assessment/Plan getting better check electrolytes, bun and creatinine not rising yet check CXR and BNP daily, getting better titrate fio2 to sat of 92% monitor Heart rate cardiology to follow. DVT prophylaxis Subjective ROS Limited/Unobtainable: No Constitutional: Reports: no symptoms HEENT: Repors: no symptoms Respiratory: Reports: no symptoms Allergies: Coded Allergies: PIPERACILLIN (Unverified Allergy, Unknown, 05/21/18) tolerates cephalosporins TAZOBACTAM (Unverified Allergy, Unknown, 03/10/18) Objective Last 24 Hour Vital Signs Date Time Temp Pulse Resp B/P (MAP) Pulse Ox O2 Delivery O2 Flow Rate FiO2 06/17/18 12:00 98.7 75 20 123/58 (79) 98 06/17/18 09:00 Nasal Cannula 2.0 06/17/18 08:00 99.5 78 21 114/49 (70) 98 06/17/18 04:56 62 18 97 Facial 40 06/17/18 04:12 99.1 73 20 130/57 (81) 93 06/17/18 01:24 66 18 98 Facial 40 06/17/18 00:19 99.3 77 18 114/56 (75) 98 06/16/18 20:01 Nasal Cannula 2.0 06/16/18 19:57 99.2 74 18 116/46 (69) 99 06/16/18 16:00 97.8 65 20 132/65 (87) 100 Intake and Output 06/16/18 06/17/18 19:00 07:00 Intake Total 960 ml Output Total 1200 ml Balance -240 ml Intake Oral 960 ml Output Urine Total 1200 ml # Voids 1 2 Objective off bipap, looks better General Appearance: WD/WN HEENT: normocephalic, anicteric Respiratory/Chest: lungs clear, no respiratory distress Cardiovascular: normal peripheral pulses, regular rhythm, no JVD Abdomen: soft, non tender, no scars Extremities: no cyanosis, no clubbing Laboratory Tests 06/17/18 06:05: White Blood Count 7.9#, Red Blood Count 3.61L, Hemoglobin 9.8L, Hematocrit 31.3L , Mean Corpuscular Volume 87, Mean Corpuscular Hemoglobin 27.2, Mean Corpuscular Hemoglobin Concent 31.4L, Red Cell Distribution Width 16.0H, Platelet Count 180, Mean Platelet Volume 6.8, Neutrophils (%) (Auto) 71.0, Lymphocytes (%) (Auto) 19.8L, Monocytes (%) (Auto) 7.6, Eosinophils (%) (Auto) 0.7, Basophils (%) (Auto) 0.9, Sodium Level 138, Potassium Level 3.2L, Chloride Level 97L, Carbon Dioxide Level 40H, Anion Gap 1L, Blood Urea Nitrogen 19H, Creatinine 0.7, Estimat Glomerular Filtration Rate , Glucose Level 94, Calcium Level 8.9 Current Medications Medications (Trade) Dose Ordered Sig/Ibrahima Route PRN Reason Start Time Stop Time Status Last Admin Dose Admin Acetaminophen (Tylenol) 650 mg Q4H PRN ORAL Fever 06/15/18 21:00 07/12/18 20:59 Acetaminophen/ Hydrocodone Bitart ([place] 10/325) 1 tab Q4H PRN ORAL Severe Pain (Pain Scale 7-10) 06/15/18 20:30 06/21/18 16:29 Acetaminophen/ Hydrocodone Bitart ([place] 5/325) 1 tab Q4H PRN ORAL Moderate Pain (Pain Scale 4-6) 06/15/18 22:00 06/21/18 21:59 Albuterol/ Ipratropium (Albuterol/ Ipratropium) 3 ml Q4H PRN HHN Shortness of Breath 06/15/18 21:00 06/17/18 20:59 Dextrose (Dextrose 50%) 25 ml Q30M PRN IV Hypoglycemia 06/15/18 20:15 07/12/18 07:14 Dextrose (Dextrose 50%) 50 ml Q30M PRN IV Hypoglycemia 06/15/18 20:15 07/12/18 07:14 Furosemide (Lasix) 40 mg EVERY 8 HOURS IV 06/15/18 22:00 07/12/18 13:59 06/17/18 13:05 Haloperidol Lactate (Haldol) 5 mg Q6H PRN IM Agitation 06/15/18 21:30 07/12/18 15:29 Heparin Sodium (Porcine) (Heparin 5000 units/ml) 5,000 units EVERY 12 HOURS SUBQ 06/15/18 21:00 07/12/18 08:59 06/16/18 20:26 Ondansetron HCl (Zofran) 4 mg Q6H PRN IVP Nausea & Vomiting 06/15/18 21:00 07/15/18 20:59 Polyethylene Glycol (Miralax) 17 gm DAILYPRN PRN ORAL Constipation 06/16/18 07:15 07/12/18 07:14 Risperidone (RisperDAL) 1 mg BEDTIME ORAL 06/16/18 21:00 07/16/18 20:59 06/16/18 20:25 Temazepam (Restoril) 15 mg HSPRN PRN ORAL Insomnia 06/15/18 21:00 06/22/18 20:59 06/16/18 20:25 Mendel Sierra MD Jun 17, 2018 15:54
[2018-06-17 16:00] VITALS: BP 118/59
--- NOTE | 2018-06-17 19:12 | NUR ---
HAND-OFF: Report given to CHARLETTE Denise.
--- NOTE | 2018-06-17 19:24 | NUR ---
NURSE NOTES: Received patient awake,alert,verbal,resting in bed,no SOB noted.
[2018-06-17 20:00] VITALS: BP 132/53
--- NOTE | 2018-06-17 21:23 | General Progress Note ---
Assessment/Plan Problem List: (1) Paranoid schizophrenia ICD Codes: F20.0 - Paranoid schizophrenia SNOMED: 33832601 (2) encephalopathy due to metabolic factor (3) Major depression ICD Codes: F32.9 - Major depressive disorder, single episode, unspecified SNOMED: 58898124, 208209483 Assessment/Plan risperdal 1mg po qhs haldol im for agitation provided ro/st Subjective Neurologic/Psychiatric: Reports: anxiety, depressed, emotional problems Allergies: Coded Allergies: PIPERACILLIN (Unverified Allergy, Unknown, 05/21/18) tolerates cephalosporins TAZOBACTAM (Unverified Allergy, Unknown, 03/10/18) Subjective the pt is more alert and is able to answer the questions/ Objective Last 24 Hour Vital Signs Date Time Temp Pulse Resp B/P (MAP) Pulse Ox O2 Delivery O2 Flow Rate FiO2 06/17/18 21:04 99.0 06/17/18 20:07 Nasal Cannula 2.0 06/17/18 20:00 100.3 86 18 132/53 (79) 95 06/17/18 16:00 99.0 63 20 118/59 (78) 100 06/17/18 12:00 98.7 75 20 123/58 (79) 98 06/17/18 09:00 Nasal Cannula 2.0 06/17/18 08:00 99.5 78 21 114/49 (70) 98 06/17/18 04:56 62 18 97 Facial 40 06/17/18 04:12 99.1 73 20 130/57 (81) 93 06/17/18 01:24 66 18 98 Facial 40 06/17/18 00:19 99.3 77 18 114/56 (75) 98 Intake and Output 06/16/18 06/17/18 19:00 07:00 Intake Total 960 ml Output Total 1200 ml Balance -240 ml Intake Oral 960 ml Output Urine Total 1200 ml # Voids 1 2 Laboratory Tests 06/17/18 06:05: White Blood Count 7.9#, Red Blood Count 3.61L, Hemoglobin 9.8L, Hematocrit 31.3L , Mean Corpuscular Volume 87, Mean Corpuscular Hemoglobin 27.2, Mean Corpuscular Hemoglobin Concent 31.4L, Red Cell Distribution Width 16.0H, Platelet Count 180, Mean Platelet Volume 6.8, Neutrophils (%) (Auto) 71.0, Lymphocytes (%) (Auto) 19.8L, Monocytes (%) (Auto) 7.6, Eosinophils (%) (Auto) 0.7, Basophils (%) (Auto) 0.9, Sodium Level 138, Potassium Level 3.2L, Chloride Level 97L, Carbon Dioxide Level 40H, Anion Gap 1L, Blood Urea Nitrogen 19H, Creatinine 0.7, Estimat Glomerular Filtration Rate , Glucose Level 94, Calcium Level 8.9 Height (Feet): 5 Height (Inches): 3.00 Weight (Pounds): 192 General Appearance: alert, moderate distress Neurologic: oriented x 3, responsive, depressed affect Luiz Morrison MD Jun 17, 2018 21:23
[2018-06-18] VITALS: BP 104/56
[2018-06-18 04:00] VITALS: BP 124/64
--- NOTE | 2018-06-18 07:22 | NUR ---
HAND-OFF: Report given to Alexandra Albert RN.
--- NOTE | 2018-06-18 07:29 | NUR ---
RESPIRATORY NOTE: Received pt on Bipap sleeping, responded to name called, Bipap settings: /- back up rate 16- 30% FiO2, saturated at 98%. No SOB or reso distress noted. Readjust the mask to release pressure and check skin integrity, no skin breakdown noted. Alarms are set and audible,Bipap is pluggged into the red outlet, ambu bag is at bedside. Will continue to monitor pt closely.
--- NOTE | 2018-06-18 07:56 | NUR ---
NURSE NOTES: \Patient eyes closed,response when name is called,respirations are unlabored.BIPAP is on,patient state still ants to rest,not ready to eat archana breakfast.Call light within reach,bed alarm is on.
[2018-06-18 08:00] VITALS: BP 117/80
[2018-06-18 08:13] LABS: BASOPHILS % (AUTO) 1.5 % (0.0-2.0); EOSINOPHILS % (AUTO) 2.2 % (0.0-3.0); HEMATOCRIT 34.6 % (37.0-47.0); HEMOGLOBIN 10.8 G/DL (12.0-16.0); LYMPHOCYTES % (AUTO) 20.2 % (20.0-45.0); MEAN CORPUSCULAR VOLUME 86 FL (80-99); MONOCYTES % (AUTO) 8.7 % (1.0-10.0); NEUTROPHILS % (AUTO) 67.3 % (45.0-75.0); PLATELET COUNT 178 K/UL (150-450); RED BLOOD COUNT 4.02 M/UL (4.20-5.40); WHITE BLOOD COUNT 6.4 K/UL (4.8-10.8)
[2018-06-18 08:33] LABS: ANION GAP 8 mmol/L (5-15); BLOOD UREA NITROGEN 21 mg/dL (7-18); CARBON DIOXIDE 36 MMOL/L (21-32); CHLORIDE 97 MMOL/L (98-107); CREATININE 0.7 MG/DL (0.55-1.30); POTASSIUM 3.1 MMOL/L (3.5-5.1); SODIUM 141 MMOL/L (136-145)
--- NOTE | 2018-06-18 08:40 | NUR ---
RESPIRATORY NOTE:Took pt off Bipap per pt requested. Pt is awake, alert, no SOB or resp distress noted. Placed pt on 2L NC 28%, saturated at 97%. RN notified. Will continue to monitor pt.
[2018-06-18] MEDS: Heparin 5000 units/ml inj SUBQ SCH (09:36)
[2018-06-18 12:00] VITALS: BP 106/49
--- NOTE | 2018-06-18 13:01 | NUR ---
*--* DISCHARGE PLANNING PATIENT HAS BEEN REFERRED BACK TO: [facility] [address] P:[phone] F:[phone]
--- NOTE | 2018-06-18 14:39 | Pulmonology Progress Note ---
Assessment/Plan Problems: (1) Respiratory failure, acute (2) Acute encephalopathy (3) COPD (chronic obstructive pulmonary disease) (4) Acute diastolic CHF (congestive heart failure) (5) Pulmonary edema (6) CAD (coronary artery disease) (7) Dementia (8) Seizure disorder Assessment/Plan getting better check electrolytes, bun and creatinine not rising yet titrate fio2 to sat of 92% monitor Heart rate cardiology to follow. DVT prophylaxis Subjective ROS Limited/Unobtainable: No Constitutional: Reports: no symptoms HEENT: Repors: no symptoms Allergies: Coded Allergies: PIPERACILLIN (Unverified Allergy, Unknown, 05/21/18) tolerates cephalosporins TAZOBACTAM (Unverified Allergy, Unknown, 03/10/18) Objective Last 24 Hour Vital Signs Date Time Temp Pulse Resp B/P (MAP) Pulse Ox O2 Delivery O2 Flow Rate FiO2 06/18/18 12:00 98.4 71 24 106/49 (68) 97 06/18/18 09:00 Nasal Cannula 2.0 06/18/18 08:00 97.2 62 24 117/80 (92) 06/18/18 07:29 62 19 98 Full Face 30 06/18/18 05:55 62 17 96 Full Face 40 06/18/18 04:00 97.4 64 20 124/64 (84) 98 06/18/18 02:57 58 18 93 Facial 40 06/18/18 00:10 60 18 94 Facial 40 06/18/18 00:00 98.1 78 20 104/56 (72) 98 06/17/18 21:04 99.0 06/17/18 20:07 Nasal Cannula 2.0 06/17/18 20:00 100.3 86 18 132/53 (79) 95 06/17/18 16:00 99.0 63 20 118/59 (78) 100 Intake and Output 06/17/18 06/18/18 19:00 07:00 Intake Total 720 ml Output Total 500 ml 1000 ml Balance 220 ml -1000 ml Intake Oral 720 ml Output Urine Total 500 ml 1000 ml HEENT: normocephalic, atraumatic Respiratory/Chest: chest wall non-tender, lungs clear Breasts: no masses Cardiovascular: normal peripheral pulses, normal rate Abdomen: normal bowel sounds, no organomegaly Genitourinary: normal external genitalia Extremities: no cyanosis Skin: no rash Laboratory Tests 06/18/18 06:30: White Blood Count 6.4, Red Blood Count 4.02L, Hemoglobin 10.8L, Hematocrit 34.6L , Mean Corpuscular Volume 86, Mean Corpuscular Hemoglobin 26.7L, Mean Corpuscular Hemoglobin Concent 31.1L, Red Cell Distribution Width 17.0H, Platelet Count 178, Mean Platelet Volume 6.7, Neutrophils (%) (Auto) 67.3, Lymphocytes (%) (Auto) 20.2, Monocytes (%) (Auto) 8.7, Eosinophils (%) (Auto) 2.2, Basophils (%) (Auto) 1.5, Sodium Level 141, Potassium Level 3.1L, Chloride Level 97L, Carbon Dioxide Level 36H, Anion Gap 8, Blood Urea Nitrogen 21H, Creatinine 0.7, Estimat Glomerular Filtration Rate , Glucose Level 97, Calcium Level 9.0 Current Medications Medications (Trade) Dose Ordered Sig/Ibrahima Route PRN Reason Start Time Stop Time Status Last Admin Dose Admin Acetaminophen (Tylenol) 650 mg Q4H PRN ORAL Fever 06/15/18 21:00 07/12/18 20:59 06/17/18 20:33 Acetaminophen/ Hydrocodone Bitart ([place] 10/325) 1 tab Q4H PRN ORAL Severe Pain (Pain Scale 7-10) 06/15/18 20:30 06/21/18 16:29 Acetaminophen/ Hydrocodone Bitart ([place] 5/325) 1 tab Q4H PRN ORAL Moderate Pain (Pain Scale 4-6) 06/15/18 22:00 06/21/18 21:59 Dextrose (Dextrose 50%) 25 ml Q30M PRN IV Hypoglycemia 06/15/18 20:15 07/12/18 07:14 Dextrose (Dextrose 50%) 50 ml Q30M PRN IV Hypoglycemia 06/15/18 20:15 07/12/18 07:14 Furosemide (Lasix) 40 mg EVERY 8 HOURS IV 06/15/18 22:00 07/12/18 13:59 06/18/18 05:43 Haloperidol Lactate (Haldol) 5 mg Q6H PRN IM Agitation 06/15/18 21:30 07/12/18 15:29 Heparin Sodium (Porcine) (Heparin 5000 units/ml) 5,000 units EVERY 12 HOURS SUBQ 06/15/18 21:00 07/12/18 08:59 06/18/18 09:36 Ondansetron HCl (Zofran) 4 mg Q6H PRN IVP Nausea & Vomiting 06/15/18 21:00 07/15/18 20:59 Polyethylene Glycol (Miralax) 17 gm DAILYPRN PRN ORAL Constipation 06/16/18 07:15 07/12/18 07:14 Potassium Chloride (K-Dur) 40 meq TWICE A DAY ORAL 06/18/18 18:00 06/19/18 09:01 Risperidone (RisperDAL) 1 mg BEDTIME ORAL 06/16/18 21:00 07/16/18 20:59 06/17/18 20:33 Temazepam (Restoril) 15 mg HSPRN PRN ORAL Insomnia 06/15/18 21:00 06/22/18 20:59 06/17/18 20:33 Mendel Sierra MD Jun 18, 2018 14:39
[2018-06-18 16:00] VITALS: BP 140/57
--- NOTE | 2018-06-18 16:47 | Cardiac Electrophysiology PN ---
Assessment/Plan Assessment/Plan 1. Atrial flutter. The rate is controlled off AV yumi blocking agents. 2. Bradycardia, status post Medtronic leadless pacemaker implantation in 2016. 3. Congestive heart failure with diastolic dysfunction. Change Lasix to 40 mg IV daily 4. Chronic obstructive pulmonary disease. 5. Dementia. DYLAN RN Subjective Subjective No events. Comfortable in NAD.No Cp or SOB. DC planning in progress. Objective Last 24 Hour Vital Signs Date Time Temp Pulse Resp B/P (MAP) Pulse Ox O2 Delivery O2 Flow Rate FiO2 06/18/18 16:00 98.9 74 24 140/57 (84) 99 06/18/18 12:00 98.4 71 24 106/49 (68) 97 06/18/18 09:00 Nasal Cannula 2.0 06/18/18 08:00 97.2 62 24 117/80 (92) 06/18/18 07:29 62 19 98 Full Face 30 06/18/18 05:55 62 17 96 Full Face 40 06/18/18 04:00 97.4 64 20 124/64 (84) 98 06/18/18 02:57 58 18 93 Facial 40 06/18/18 00:10 60 18 94 Facial 40 06/18/18 00:00 98.1 78 20 104/56 (72) 98 06/17/18 21:04 99.0 06/17/18 20:07 Nasal Cannula 2.0 06/17/18 20:00 100.3 86 18 132/53 (79) 95 Intake and Output 06/17/18 06/18/18 19:00 07:00 Intake Total 720 ml Output Total 500 ml 1000 ml Balance 220 ml -1000 ml Intake Oral 720 ml Output Urine Total 500 ml 1000 ml Laboratory Tests Test 06/18/18 06:30 White Blood Count 6.4 K/UL (4.8-10.8) Red Blood Count 4.02 M/UL (4.20-5.40) L Hemoglobin 10.8 G/DL (12.0-16.0) L Hematocrit 34.6 % (37.0-47.0) L Mean Corpuscular Volume 86 FL (80-99) Mean Corpuscular Hemoglobin 26.7 PG (27.0-31.0) L Mean Corpuscular Hemoglobin Concent 31.1 G/DL (32.0-36.0) L Red Cell Distribution Width 17.0 % (11.6-14.8) H Platelet Count 178 K/UL (150-450) Mean Platelet Volume 6.7 FL (6.5-10.1) Neutrophils (%) (Auto) 67.3 % (45.0-75.0) Lymphocytes (%) (Auto) 20.2 % (20.0-45.0) Monocytes (%) (Auto) 8.7 % (1.0-10.0) Eosinophils (%) (Auto) 2.2 % (0.0-3.0) Basophils (%) (Auto) 1.5 % (0.0-2.0) Sodium Level 141 MMOL/L (136-145) Potassium Level 3.1 MMOL/L (3.5-5.1) L Chloride Level 97 MMOL/L (98-107) L Carbon Dioxide Level 36 MMOL/L (21-32) H Anion Gap 8 mmol/L (5-15) Blood Urea Nitrogen 21 mg/dL (7-18) H Creatinine 0.7 MG/DL (0.55-1.30) Estimat Glomerular Filtration Rate mL/min (>60) Glucose Level 97 MG/DL (74-106) Calcium Level 9.0 MG/DL (8.5-10.1) Objective HEAD AND NECK: No JVD. LUNGS: Clear. CARDIOVASCULAR: Regular S1 and S2 with no gallop. ABDOMEN: Soft. EXTREMITIES: No pitting edema. Yohan Milian MD Jun 18, 2018 16:47
--- NOTE | 2018-06-18 16:54 | Internal Med Progress Note ---
Subjective Date of Service: Jun 18, 2018 Physician Name Juan Dutta Attending Physician Yonathan Mendoza MD Current Medications Medications (Trade) Dose Ordered Sig/Ibrahima Route PRN Reason Start Time Stop Time Status Last Admin Dose Admin Acetaminophen (Tylenol) 650 mg Q4H PRN ORAL Fever 06/15/18 21:00 07/12/18 20:59 06/17/18 20:33 Acetaminophen/ Hydrocodone Bitart ([place] 10/325) 1 tab Q4H PRN ORAL Severe Pain (Pain Scale 7-10) 06/15/18 20:30 06/21/18 16:29 Acetaminophen/ Hydrocodone Bitart ([place] 5/325) 1 tab Q4H PRN ORAL Moderate Pain (Pain Scale 4-6) 06/15/18 22:00 06/21/18 21:59 Dextrose (Dextrose 50%) 25 ml Q30M PRN IV Hypoglycemia 06/15/18 20:15 07/12/18 07:14 Dextrose (Dextrose 50%) 50 ml Q30M PRN IV Hypoglycemia 06/15/18 20:15 07/12/18 07:14 Furosemide (Lasix) 40 mg DAILY IV 06/19/18 09:00 07/12/18 13:59 Haloperidol Lactate (Haldol) 5 mg Q6H PRN IM Agitation 06/15/18 21:30 07/12/18 15:29 Heparin Sodium (Porcine) (Heparin 5000 units/ml) 5,000 units EVERY 12 HOURS SUBQ 06/15/18 21:00 07/12/18 08:59 06/18/18 09:36 Ondansetron HCl (Zofran) 4 mg Q6H PRN IVP Nausea & Vomiting 06/15/18 21:00 07/15/18 20:59 Polyethylene Glycol (Miralax) 17 gm DAILYPRN PRN ORAL Constipation 06/16/18 07:15 07/12/18 07:14 Potassium Chloride (K-Dur) 40 meq TWICE A DAY ORAL 06/18/18 15:00 06/18/18 18:01 06/18/18 14:55 Risperidone (RisperDAL) 1 mg BEDTIME ORAL 06/16/18 21:00 07/16/18 20:59 06/17/18 20:33 Temazepam (Restoril) 15 mg HSPRN PRN ORAL Insomnia 06/15/18 21:00 06/22/18 20:59 06/17/18 20:33 Allergies: Coded Allergies: PIPERACILLIN (Unverified Allergy, Unknown, 05/21/18) tolerates cephalosporins TAZOBACTAM (Unverified Allergy, Unknown, 03/10/18) ROS Limited/Unobtainable: No Constitutional: Reports: no symptoms HEENT: Reports: no symptoms Cardiovascular: Reports: no symptoms Respiratory: Reports: no symptoms Gastrointestinal/Abdominal: Reports: no symptoms Genitourinary: Reports: no symptoms Neurologic/Psychiatric: Reports: no symptoms Subjective 77 YO F admitted with altered mental status. Now CHF. CHRISTOPHER. Cover for Int Med- Dr Mendoza. Off BIPAP; tolerating nasal canula Objective Last Vital Signs Date Time Temp Pulse Resp B/P (MAP) Pulse Ox O2 Delivery O2 Flow Rate FiO2 06/18/18 16:00 98.9 74 24 140/57 (84) 99 06/18/18 09:00 Nasal Cannula 2.0 06/18/18 07:29 30 Laboratory Tests Test 06/18/18 06:30 White Blood Count 6.4 K/UL (4.8-10.8) Red Blood Count 4.02 M/UL (4.20-5.40) L Hemoglobin 10.8 G/DL (12.0-16.0) L Hematocrit 34.6 % (37.0-47.0) L Mean Corpuscular Volume 86 FL (80-99) Mean Corpuscular Hemoglobin 26.7 PG (27.0-31.0) L Mean Corpuscular Hemoglobin Concent 31.1 G/DL (32.0-36.0) L Red Cell Distribution Width 17.0 % (11.6-14.8) H Platelet Count 178 K/UL (150-450) Mean Platelet Volume 6.7 FL (6.5-10.1) Neutrophils (%) (Auto) 67.3 % (45.0-75.0) Lymphocytes (%) (Auto) 20.2 % (20.0-45.0) Monocytes (%) (Auto) 8.7 % (1.0-10.0) Eosinophils (%) (Auto) 2.2 % (0.0-3.0) Basophils (%) (Auto) 1.5 % (0.0-2.0) Sodium Level 141 MMOL/L (136-145) Potassium Level 3.1 MMOL/L (3.5-5.1) L Chloride Level 97 MMOL/L (98-107) L Carbon Dioxide Level 36 MMOL/L (21-32) H Anion Gap 8 mmol/L (5-15) Blood Urea Nitrogen 21 mg/dL (7-18) H Creatinine 0.7 MG/DL (0.55-1.30) Estimat Glomerular Filtration Rate mL/min (>60) Glucose Level 97 MG/DL (74-106) Calcium Level 9.0 MG/DL (8.5-10.1) Intake and Output 06/17/18 06/18/18 19:00 07:00 Intake Total 720 ml Output Total 500 ml 1000 ml Balance 220 ml -1000 ml Intake Oral 720 ml Output Urine Total 500 ml 1000 ml Objective PHYSICAL EXAMINATION: GENERAL: The patient is well-developed, well-nourished white female, who is in moderate respiratory distress. HEENT: Eyes, pupils equal and responsive to light and accommodation. Extraocular movements are intact. NECK: Supple without lymphadenopathy. CHEST: Tolerating nasal canula. Decreased breath sounds bilateral bases with crackles. Otherwise, without wheezes or rales. CARDIOVASCULAR: Tachycardic. Irregular rhythm and irregular rate. S1 and S2 normal without murmurs, rubs, or gallops. ABDOMEN: Soft, nontender, and nondistended. Positive bowel sounds. No evidence of hepatosplenomegaly. Currently, no rebound or guarding noted. EXTREMITIES: Negative for clubbing, cyanosis, or edema. RECTAL/GENITAL: Not performed. NEUROLOGIC: Cranial nerves II through XII are grossly intact without focal deficits. Assessment/Plan Assessment/Plan ASSESSMENT: This is a 77-year-old white female. 1. Congestive heart failure, acute exacerbation. 2. Respiratory failure. 3. Altered mental status. 4. Hypoxia. 5. Atrial flutter. 6. Congestive heart failure. 7. Chronic obstructive pulmonary disease. 8. Coronary artery disease. 9. Hypertension. 10. Seizure disorder. 11. Paranoid schizophrenia. 12. Depression. TREATMENT: 1. Congestive heart failure. Cardiology consultation has been obtained with Dr. Yohan Milian. The patient has been evaluated by Dr. Milian in the past. The patient has an intraventricular pacemaker. We will follow recommendation of Cardiology. 2. Altered mental status, most probably secondary to hypoxia as above. 3. Respiratory failure. See pulmonology note. This is probably secondary to congestive heart failure as above. OFF BIPAP; tolerating nasal canula 4. Hypoxia. 5. Atrial flutter. As above, a Cardiology consultation has been obtained with Dr. Yohan Milian. 6. Congestive heart failure. The patient is currently receiving intravenous Lasix. An echocardiogram is pending. Continue Lasix per Cardiology. 7. Chronic obstructive pulmonary disease. A Pulmonary consultation has been obtained with Dr. Mendel Sierra. We will follow recommendations of Pulmonary. 8. Coronary artery disease. 9. Hypertension. The patient is currently hypotensive. 10. Seizure disorder. 11. Paranoid schizophrenia. 12. Depression. 13. Discharge to [facility] [place] [facility] today Juan Dutta MD Jun 18, 2018 16:54
--- NOTE | 2018-06-18 17:16 | NUR ---
*-* DISCHARGED PLANNED *-* PATIENT IS DISCHARGED TO: [facility] ROOM# [id number] SKILLED T:[phone] FOR NURSE TO NURSE REPORT [facility] HAS BEEN ARRANGED FOR JOB PLACEMENT COUNSELOR AT [address] [facility] [id number]
--- NOTE | 2018-06-18 18:04 | NUR ---
NURSE NOTES: Report given to SUKHDEV OVALLES at [facility] [address].
--- NOTE | 2018-06-18 19:00 | NUR ---
NURSE NOTES: Patient resting,skin care given,waiting for transportation to take patient Rehab center on .Bed alarm on,call light within reach.
--- NOTE | 2018-06-18 19:10 | NUR ---
NURSE NOTES: Received a report from CAHRLETTE Morris. Pt is in stable condition. AAOX4. Able to make needs known. No respiratory distress noted. Uses NC at 2L/min. No c/o pain/discomfort. IV access is patent and intact, will remove it once ambulance comes in. Bed in lowest position. Bed alarm is on. Call light within reach. Will continue to monitor.
--- NOTE | 2018-06-18 19:15 | NUR ---
HAND-OFF: Report given to LAURENCE OVALLES.
--- NOTE | 2018-06-18 20:10 | NUR ---
NURSE NOTES: [facility] ambulance came in. Pt is in stable condition. AAOX4. Able to make needs known. No respiratory distress noted. No c/o pain/discomfort. Removed the IV heplock, no bleeding noted. No belongings.
--- NOTE | 2018-06-18 23:44 | General Progress Note ---
Assessment/Plan Problem List: (1) Paranoid schizophrenia ICD Codes: F20.0 - Paranoid schizophrenia SNOMED: 15794061 (2) encephalopathy due to metabolic factor (3) Major depression ICD Codes: F32.9 - Major depressive disorder, single episode, unspecified SNOMED: 02465927, 402754641 Assessment/Plan risperdal 1mg po qhs haldol im for agitation provided ro/st Subjective Allergies: Coded Allergies: PIPERACILLIN (Unverified Allergy, Unknown, 05/21/18) tolerates cephalosporins TAZOBACTAM (Unverified Allergy, Unknown, 03/10/18) Subjective the pt is more alert and is able to answer the questions/ Objective Last 24 Hour Vital Signs Date Time Temp Pulse Resp B/P (MAP) Pulse Ox O2 Delivery O2 Flow Rate FiO2 06/18/18 16:00 98.9 74 24 140/57 (84) 99 06/18/18 12:00 98.4 71 24 106/49 (68) 97 06/18/18 09:00 Nasal Cannula 2.0 06/18/18 08:00 97.2 62 24 117/80 (92) 06/18/18 07:29 62 19 98 Full Face 30 06/18/18 05:55 62 17 96 Full Face 40 06/18/18 04:00 97.4 64 20 124/64 (84) 98 06/18/18 02:57 58 18 93 Facial 40 06/18/18 00:10 60 18 94 Facial 40 06/18/18 00:00 98.1 78 20 104/56 (72) 98 Intake and Output 06/17/18 06/18/18 19:00 07:00 Intake Total 720 ml Output Total 500 ml 1000 ml Balance 220 ml -1000 ml Intake Oral 720 ml Output Urine Total 500 ml 1000 ml Laboratory Tests 06/18/18 06:30: White Blood Count 6.4, Red Blood Count 4.02L, Hemoglobin 10.8L, Hematocrit 34.6L , Mean Corpuscular Volume 86, Mean Corpuscular Hemoglobin 26.7L, Mean Corpuscular Hemoglobin Concent 31.1L, Red Cell Distribution Width 17.0H, Platelet Count 178, Mean Platelet Volume 6.7, Neutrophils (%) (Auto) 67.3, Lymphocytes (%) (Auto) 20.2, Monocytes (%) (Auto) 8.7, Eosinophils (%) (Auto) 2.2, Basophils (%) (Auto) 1.5, Sodium Level 141, Potassium Level 3.1L, Chloride Level 97L, Carbon Dioxide Level 36H, Anion Gap 8, Blood Urea Nitrogen 21H, Creatinine 0.7, Estimat Glomerular Filtration Rate , Glucose Level 97, Calcium Level 9.0 Height (Feet): 5 Height (Inches): 3.00 Weight (Pounds): 189 Luiz Morrison MD Jun 18, 2018 23:44
--- NOTE | 2018-06-19 13:27 | Discharge Summary ---
Discharge Summary Discharge Summary _ DATE OF ADMISSION: June 12, 2018 DATE OF DISCHARGE: June 18, 2018 DISCHARGED BY: Dr. Yonathan Mendoza CONSULTANTS: Dr. Mendel Milian BRIEF HOSPITAL COURSE: Patient is a 77-year-old white female, who presented with chief complaint of shortness of breath and altered mental status. The patient was admitted to [facility] in May 2018. She is a resident of [facility] according to the staff at rehabilitation Center, she began to experience extreme shortness of breath on 06/11/2018. She was also hypoxic. She was transferred to [facility] for further evaluation. She has medical history significant for atrial flutter, congestive heart failure, COPD, history of intraventricular pacemaker, coronary artery disease, hypertension, seizure disorder, paranoid schizophrenia and depression. On evaluation at the ED, she was initially somnolent. She was very hypoxic and hypercapnic. ABG showed pH of 7.1, PCO2 of 178, bicarb 54. She was placed on BiPAP. Blood work did not show any leukocytosis. ProBNP 6705. Troponin was negative. EKG showed A. fib with nonspecific ST changes. Chest x-ray showed interstitial edema with suspected bilateral pleural effusion. She was given IV diuresis. [facility] of respiratory failure, CHF exacerbation and acute encephalopathy. Fleet Driver was consulted. She was continued on BiPAP support. Respiratory status was monitored. The chest was consulted. Patient was noted to have atrial flutter. Patient has history of bradycardia, status post Medtronic leadless pacemaker implantation in 2016. Patient has congestive heart failure with diastolic dysfunction, she was continued on Lasix 40 mg IV to 8 hours. Echocardiogram from previous admission that showed ejection fraction 55% with right ventricular systolic pressure of 56 mmHg, consistent with moderate pulmonary hypertension. Patient has history of schizophrenia. She had episodes of agitation. Psychiatric evaluation was done. Risperdal was based on hold. She was given Haldol as needed. Patient was more alert and was able to answer questions, she was then later on resumed Risperdal 1 mg p.o. nightly. She was eventually weaned off BiPAP support. She was given BiPAP nightly. She was tolerating nasal cannula. Venous duplex was negative for DVT. She was diuresing well. IV Lasix was changed to q daily. She was given potassium supplements. She was eventually discharged back to [facility]. FINAL DIAGNOSES: Acute on chronic diastolic congestive heart failure, with acute exacerbation Acute respiratory failure requiring BiPAP, resolved Altered mental status/acute metabolic encephalopathy Hypoxia Atrial flutter COPD Coronary artery disease Hypertension Seizure disorder Paranoid schizophrenia Depression Bradycardia, status post Medtronic leadless maker implantation Dementia Hypokalemia DISPOSITION: Patient was discharged to a SNF. DISCHARGE MEDICATIONS: Refer to Discharge Medication List. I have been assigned to dictate discharge summary on this account, and I was not involved in the patient's management. Delmi Gutierrez NP Jun 19, 2018 13:27
== END 2018-06-18 20:30 | DRG 291 ==
LOC: EDBD 23:34 → EMR 23:40 → 2W 06-12 00:27 → EDBEDREQ 06-12 00:33 → 4E 06-15 21:02
PROC: 5A09457 Assistance with Respiratory Ventilation, 24-96 Consecutive Hours, Continuous Positive Airway Pressure (ICD-10-PCS; principal; 2018-06-12)
DX: I11.0 Hypertensive heart disease with heart failure (principal); J96.01 Acute respiratory failure with hypoxia; G93.41 Metabolic encephalopathy; J96.02 Acute respiratory failure with hypercapnia; I48.92 Unspecified atrial flutter; F20.0 Paranoid schizophrenia; I50.33 Acute on chronic diastolic (congestive) heart failure; J44.9 Chronic obstructive pulmonary disease, unspecified; G40.909 Epilepsy, unspecified, not intractable, without status epilepticus; R45.1 Restlessness and agitation; F32.9 Major depressive disorder, single episode, unspecified; F03.90 Unspecified dementia, unspecified severity, without behavioral disturbance, psychotic disturbance, mood disturbance, and anxiety; E87.6 Hypokalemia; Z95.0 Presence of cardiac pacemaker; Z88.1 Allergy status to other antibiotic agents; R00.1 Bradycardia, unspecified; I25.10 Atherosclerotic heart disease of native coronary artery without angina pectoris
CPT/HCPCS: 36415; 36600; 71045; 80048; 80053; 80069; 81003; 82550; 82553; 82803; 83880; 84484; 85025; 85610; 85730; 87081; 93005; 93970; 94640; 94660; 94664; 96374; 96375; 99291; J7620; J8499

== ENCOUNTER 2018-07-28 06:28 | Inpatient (IN) | payer MEDICARE, MEDICAID ==
[~2018-07-28] VITALS: Ht 162.6 cm; Wt 79.6 kg
[~2018-07-28 06:28] MED LIST changes: +AMIODARONE HCL400 M1 ORAL; +CARDIZEM30 M1 PO; +ELIQUIS5 MG PO; +HYDROcodone/Acetamin 10/325 ORAL; +IPRATROPIU0.2 MG/1 M HHN; +MEDROL4 MG ORAL; +MIRTAZAPINE15 MG ORAL; +POTASSIUM CHLO10 MEQ ORAL; +RESTORIL15 MG ORAL; +ROBITUSSIN NIG237 ML PO; +ZESTRIL5 MG ORAL; +ZOFRAN4 M3 ORAL
[2018-07-28 06:52] VITALS: BP 146/61
--- NOTE | 2018-07-28 06:59 | NUR ---
ER Nurse Note: Pt was brought in by ra Velazquez from [facility] c/o sob 1 hour prior to ed arrival. pt is on 15L/min face mask.; o2 at 99%. Pt a&ox0, VSS. Pt mumbles and responds to pain. Blood drawn, no IV site; endorsed to oncoming RN. Report given to CHARLETTE Mora for continuity of care.
--- NOTE | 2018-07-28 07:11 | Emergency Room Report ---
History of Present Illness General Chief Complaint: Dyspnea/Respdistress Source: EMS Present Illness HPI Patient presents by paramedics for reports of shortness of breath patient presents from nursing facility Patient herself is sluggish to respond opens eyes to verbal command however not verbal It was unclear the onset of symptoms however patient was found this morning by nursing facility There was no reports of vomiting or diarrhea history of present illness is significantly limited No obvious fevers documented patient has History of psychiatric pathology also cardiopulmonary Allergies: Coded Allergies: PIPERACILLIN (Unverified Allergy, Unknown, 05/21/18) tolerates cephalosporins TAZOBACTAM (Unverified Allergy, Unknown, 03/10/18) Patient History Limited by: medical condition Past Medical History: see triage record Pertinent Family History: none Last Menstrual Period: 3 decades ago Now: No Reviewed Nursing Documentation: PMH: Agreed; PSxH: Agreed Nursing Documentation-PMH Hx Cardiac Problems: Yes Hx Hypertension: Yes Hx Pacemaker: Yes - left chest Hx Asthma: No Hx COPD: Yes Hx Diabetes: No Hx Cancer: No Hx Gastrointestinal Problems: Yes - dysphagia ,oropharyngeal phase Hx Dialysis: No Hx Neurological Problems: Yes - insomnia Hx Cerebrovascular Accident: Yes Hx Dementia: Yes Hx Seizures: Yes Hx Epilepsy: Yes Hx Tremors: Yes Hx Vertigo: Yes Hx Dizziness: Yes Hx Syncope: Yes Hx Headaches: Yes - occasional Hx Weakness: Yes Hx Fatigue: Yes Review of Systems All Other Systems: limited - Other than the ones mentioned in the history of present illness all others are reviewed however they do stay limited due to the patient's mental status Physical Exam Vital Signs Date Time Temp Pulse Resp B/P (MAP) Pulse Ox O2 Delivery O2 Flow Rate FiO2 07/28/18 06:23 84 20 154/64 100 Room Air 07/28/18 06:52 99.0 15.0 Sp02 EP Interpretation: reviewed, normal General Appearance: moderate distress - Appears confused, dyspneic Head: normocephalic, atraumatic Eyes: bilateral eye PERRL ENT: uvula midline, dry mucus membranes Neck: supple, no meningismus Respiratory: crackles - Laterally, diminished breath sounds Cardiovascular #1: irregularly irregular Gastrointestinal: non tender, soft, no mass Musculoskeletal: other - Attempts to localize towards physical stimuli Neurologic: responsive - minimally to physical stimuli significantly decreased GCS Skin: no rash Lymphatic: no adenopathy Procedures Critical Care Time Critical Care Time 50 minutes for multiple re-evaluations presentation concerning for respiratory distress and respiratory failure not including any procedural time Medical Decision Making Diagnostic Impression: Primary Impression: Dyspnea Additional Impressions: Respiratory distress COPD (chronic obstructive pulmonary disease) ER Course Patient is a fairly complex patient with multiple differential to consideration including but not limited to cardiac cardiopulmonary and vascular emergencies Patient emergently placed on BiPAP with an abnormal ABG Patient has significantly improved throughout her stay Now has become more awake and alert Patient is wanting to come off the BiPAP and will have admission to telemetry bed Labs Test 07/28/18 06:36 07/28/18 06:50 07/28/18 07:15 07/28/18 07:20 Sodium Level 131 MMOL/L (136-145) Potassium Level 4.9 MMOL/L (3.5-5.1) Chloride Level 89 MMOL/L (98-107) Carbon Dioxide Level > 45 MMOL/L (21-32) Blood Urea Nitrogen 7 mg/dL (7-18) Creatinine 0.5 MG/DL (0.55-1.30) Estimat Glomerular Filtration Rate mL/min (>60) Glucose Level 134 MG/DL (74-106) Lactic Acid Level 1.00 mmol/L (0.4-2.0) Calcium Level 9.2 MG/DL (8.5-10.1) Total Bilirubin 0.4 MG/DL (0.2-1.0) Aspartate Amino Transf (AST/SGOT) 16 U/L (15-37) Alanine Aminotransferase (ALT/SGPT) 15 U/L (12-78) Alkaline Phosphatase 77 U/L (46-116) Total Creatine Kinase 29 U/L (26-308) Creatine Kinase MB 1.5 NG/ML (0.0-3.6) Creatine Kinase MB Relative Index 5.1 Troponin I 0.000 ng/mL (0.000-0.056) Pro-B-Type Natriuretic Peptide 3014 pg/mL (0-125) Total Protein 7.6 G/DL (6.4-8.2) Albumin 3.6 G/DL (3.4-5.0) Globulin 4.0 g/dL Albumin/Globulin Ratio 0.9 (1.0-2.7) Lipase 110 U/L (73-393) Arterial Blood pH 7.198 (7.350-7.450) Arterial Blood Partial Pressure CO2 119.3 mmHg (35.0-45.0) Arterial Blood Partial Pressure O2 267.2 mmHg (75.0-100.0) Arterial Blood HCO3 45.4 mmol/L (22.0-26.0) Arterial Blood Oxygen Saturation 99.4 % (95-100) Arterial Blood Base Excess 13.3 (-2-2) Ian Test Positive Urine Color Winifred Urine Appearance Clear Urine pH 5 (4.5-8.0) Urine Specific [place] 1.020 (1.005-1.035) Urine Protein 3+ (NEGATIVE) Urine Glucose (UA) Negative (NEGATIVE) Urine Ketones Negative (NEGATIVE) Urine Blood 2+ (NEGATIVE) Urine Nitrite Negative (NEGATIVE) Urine Bilirubin Negative (NEGATIVE) Urine Ictotest Negative (NEGATIVE) Urine Urobilinogen Normal MG/DL (0.0-1.0) Urine Leukocyte Esterase Negative (NEGATIVE) Urine RBC 2-4 /HPF (0 - 2) Urine WBC 0 /HPF (0 - 2) Urine Squamous Epithelial Cells None /LPF (NONE/OCC) Urine Bacteria None /HPF (NONE) White Blood Count 7.0 K/UL (4.8-10.8) Red Blood Count 4.54 M/UL (4.20-5.40) Hemoglobin 11.9 G/DL (12.0-16.0) Hematocrit 39.1 % (37.0-47.0) Mean Corpuscular Volume 86 FL (80-99) Mean Corpuscular Hemoglobin 26.1 PG (27.0-31.0) Mean Corpuscular Hemoglobin Concent 30.4 G/DL (32.0-36.0) Red Cell Distribution Width 17.8 % (11.6-14.8) Platelet Count 150 K/UL (150-450) Mean Platelet Volume 6.4 FL (6.5-10.1) Neutrophils (%) (Auto) % (45.0-75.0) Lymphocytes (%) (Auto) % (20.0-45.0) Monocytes (%) (Auto) % (1.0-10.0) Eosinophils (%) (Auto) % (0.0-3.0) Basophils (%) (Auto) % (0.0-2.0) Differential Total Cells Counted 100 Neutrophils % (Manual) 84 % (45-75) Lymphocytes % (Manual) 4 % (20-45) Monocytes % (Manual) 6 % (1-10) Eosinophils % (Manual) 0 % (0-3) Basophils % (Manual) 0 % (0-2) Band Neutrophils 6 % (0-8) Nucleated Red Blood Cells 1 /100 WBC Platelet Estimate Adequate Platelet Morphology Normal Red Blood Cell Morphology Anisocytosis 1+ EKG Diagnostic Results Rate: normal Rhythm: other ST Segments: other - afib Rhythm Strip Diag. Results EP Interpretation: yes Rate: 80 Rhythm: NSR, no PVC's, no ectopy Chest X-Ray Diagnostic Results Chest X-Ray Diagnostic Results : Chest X-Ray Ordered: Yes # of Views/Limited/Complete: 1 View Indication: Shortness of Breath EP Interpretation: Yes Interpretation: no consolidation, no pneumothorax, other - cardiomegalymild congestion Impression: Other - cardiomegaly mild congestion Electronically Signed by: DO Tom Farfan Vital Signs Date Time Temp Pulse Resp B/P (MAP) Pulse Ox O2 Delivery O2 Flow Rate FiO2 07/28/18 06:52 99.0 83 20 146/61 100 Simple Mask 15.0 Status: improved Disposition: ADMITTED INPATIENT Condition: Critical Arabella Avila DO Jul 28, 2018 07:11
[2018-07-28 07:21] LABS: BLOOD UREA NITROGEN 7 mg/dL (7-18); CALCIUM 9.2 MG/DL (8.5-10.1); CARBON DIOXIDE > 45 MMOL/L (21-32); CHLORIDE 89 MMOL/L (98-107); CREATININE 0.5 MG/DL (0.55-1.30); POTASSIUM 4.9 MMOL/L (3.5-5.1); SODIUM 131 MMOL/L (136-145)
--- NOTE | 2018-07-28 07:26 | NUR ---
ED Nurse Note: 2nd purple top sent to lab.
--- NOTE | 2018-07-28 07:26 | NUR ---
ED Nurse Note: Bipap has been placed on pt. Urine has been collected and sent to lab.
[2018-07-28 07:27] LABS: APPEARANCE,URINE CLEAR; BILIRUBIN, URINE NEGATIVE (NEGATIVE); COLOR,URINE AMBER; GLUCOSE, URINE (UA) NEGATIVE (NEGATIVE); KETONES,URINE NEGATIVE (NEGATIVE); LEUKOCYTE ESTERASE ,URINE NEGATIVE (NEGATIVE); NITRITE,URINE NEGATIVE (NEGATIVE); PH,URINE 5 (4.5-8.0); PROTEIN,URINE 3+ (NEGATIVE); UROBILINOGEN,URINE NORMAL MG/DL (0.0-1.0)
[2018-07-28 07:37] LABS: HEMATOCRIT 39.1 % (37.0-47.0); HEMOGLOBIN 11.9 G/DL (12.0-16.0); MEAN CORPUSCULAR VOLUME 86 FL (80-99); RED BLOOD COUNT 4.54 M/UL (4.20-5.40); RED CELL DISTRIBUTION WIDTH 17.8 % (11.6-14.8)
[2018-07-28 07:43] LABS: ALANINE AMINOTRANSFERASE 15 U/L (12-78); ALBUMIN 3.6 G/DL (3.4-5.0); ALBUMIN/GLOBULIN RATIO 0.9 (1.0-2.7); ALKALINE PHOSPHATASE 77 U/L (46-116); ASPARTATE AMINO TRANSFERASE 16 U/L (15-37); BILIRUBIN,TOTAL 0.4 MG/DL (0.2-1.0); CKMB 1.5 NG/ML (0.0-3.6); CREATINE KINASE 29 U/L (26-308)
[2018-07-28 08:42] VITALS: BP 129/60
--- NOTE | 2018-07-28 09:32 | NUR ---
ED Nurse Note: Tried giving report, RN unavailable. Will try again.
[2018-07-28 09:40] LABS: PLATELET COUNT 150 K/UL (150-450)
--- NOTE | 2018-07-28 09:51 | NUR ---
ED Nurse Note: Gave telephone report to CHARLETTE Torres. Bed unavailable.
--- NOTE | 2018-07-28 10:01 | NUR ---
ED Nurse Note: Admission packet unavailable. Will wait for packet.
--- NOTE | 2018-07-28 10:17 | NUR ---
ED Nurse Note: Pt transferred up to tele unit. No acute distress noted. Pt had no belongings with her.
--- NOTE | 2018-07-28 10:20 | NUR ---
NURSE NOTES: Received patient from the ED, IV site is intact, patient came up with no belongings.
[2018-07-28] MEDS ORDERED: Albuterol/Ipratropium 3ml neb HHN PRN ×2 (10:45→15:49)
[2018-07-28] MEDS ORDERED: Miralax 17gm pkt ORAL PRN ×2 (10:45→15:49)
--- NOTE | 2018-07-28 11:15 | Diagnostic Imaging Report ---
Indication: Chest pain Technique: One view of the chest Comparison: 06/16/2018 Findings: Patient is rotated to the left. There is no overlying air sampling and monitoring. The heart is enlarged. There is bilateral interstitial and airspace edema which is greater than prior study. There is probably pleural fluid bilaterally, left greater than right Impression: Cardiomegaly, with bilateral interstitial and airspace edema and bilateral pleural effusions
--- NOTE | 2018-07-28 11:22 | Consultation ---
History of Present Illness General Date patient seen: Jul 28, 2018 Chief Complaint: Dyspnea/Respdistress Present Illness HPI 77-year-old female, history of hypertension, COPD, atrial flutter, seizure disorder, depression/schizophrenia, history of alcohol abuse, wheelchair bound, ETOH abuse in the past, coming from [facility] for dyspnea. Patient was found to have acute pulmonary edema and was started on BIPAP, she improved in ER and her oxygen was changed to face mask. she is admitted to telemetry for further work up. she is somnolent now but she is able to answer to simple questions. Allergies: Coded Allergies: PIPERACILLIN (Unverified Allergy, Unknown, 05/21/18) tolerates cephalosporins TAZOBACTAM (Unverified Allergy, Unknown, 03/10/18) Medication History Scheduled Apixaban (Eliquis), 5 MG ORAL BID Apixaban (Eliquis), 5 MG PO EVERY 12 HOURS, (Reported) Furosemide* (Lasix*), 40 MG ORAL TWICE A DAY Pantoprazole* (Protonix*), 40 MG ORAL EVERY 12 HOURS Potassium Chloride (Potassium Chloride), 10 MEQ ORAL DAILY, (Reported) Risperidone* (Risperdal*), 1 MG ORAL BEDTIME Scheduled PRN Acetaminophen With Codeine (T#3) (Tylenol #3 Tab*), 1 TAB ORAL Q4H PRN for For Pain, (Reported) Acetaminophen With Codeine (T#3) (Tylenol #3 Tab*), 1 TAB ORAL Q4H PRN for Severe Pain (Pain Scale 7-10), (Reported) Acetaminophen* (Acetaminophen 325MG Tablet*), 325 MG ORAL Q4H PRN for Fever/ Headache/Mild Pain, (Reported) Acetaminophen* (Acetaminophen 325MG Tablet*), 650 MG ORAL Q4H PRN for Mild Pain (Pain Scale 1-3), (Reported) Acetaminophen* (Acetaminophen 325MG Tablet*), 325 MG ORAL Q4H PRN for Prn Headache/Temp > 101, (Reported) Hydrocodone Bit/Acetaminophen 5-325* (Buchanan 5-325*), 1 TAB ORAL Q4H PRN Ipratropium/Albuterol Sulfate (DuoNeb 0.5-3(2.5)mg/3ml), 3 ML HHN Q4HR PRN for Shortness of breath, (Reported) Polyethylene Glycol* (Miralax*), 17 GM ORAL DAILYPRN PRN Temazepam* (Restoril*), 15 MG ORAL HSPRN PRN [HYDROcodone/Acetamin 10325], 1 TAB ORAL Q4H PRN Patient History Healthcare decision maker Resuscitation status Advanced Directive on File Past Medical/Surgical History Past Medical/Surgical History: (1) HTN (hypertension) (2) Atrial flutter (3) CAD (coronary artery disease) (4) Dementia (5) Seizure disorder (6) H/O ETOH abuse (7) COPD (chronic obstructive pulmonary disease) (8) Bipolar depression (9) Cerebral vascular disease (10) Pacemaker (11) Paranoid schizophrenia Review of Systems Respiratory: Reports: shortness of breath All Other Systems: negative except mentioned in HPI Physical Exam General Appearance: WD/WN Lines, tubes and drains: peripheral HEENT: normocephalic Neck: non-tender Respiratory/Chest: chest wall non-tender Breasts: no masses Cardiovascular/Chest: normal peripheral pulses Abdomen: normal bowel sounds Extremities: normal range of motion Last 24 Hour Vital Signs Date Time Temp Pulse Resp B/P (MAP) Pulse Ox O2 Delivery O2 Flow Rate FiO2 07/28/18 10:16 98.2 93 23 138/81 95 Simple Mask 6.0 07/28/18 08:42 98.7 82 17 129/60 99 Bi-pap 15.0 40 07/28/18 08:26 40 07/28/18 07:20 85 21 99 Facial 40 07/28/18 06:52 99.0 83 20 146/61 100 Simple Mask 15.0 07/28/18 06:52 84 20 Room Air 07/28/18 06:23 84 20 154/64 100 Room Air Laboratory Tests Test 07/28/18 06:36 07/28/18 06:50 07/28/18 07:15 07/28/18 07:20 Sodium Level 131 MMOL/L (136-145) L Potassium Level 4.9 MMOL/L (3.5-5.1) Chloride Level 89 MMOL/L (98-107) L Carbon Dioxide Level > 45 MMOL/L (21-32) *H Blood Urea Nitrogen 7 mg/dL (7-18) Creatinine 0.5 MG/DL (0.55-1.30) L Estimat Glomerular Filtration Rate mL/min (>60) Glucose Level 134 MG/DL (74-106) H Lactic Acid Level 1.00 mmol/L (0.4-2.0) Calcium Level 9.2 MG/DL (8.5-10.1) Total Bilirubin 0.4 MG/DL (0.2-1.0) Aspartate Amino Transf (AST/SGOT) 16 U/L (15-37) Alanine Aminotransferase (ALT/SGPT) 15 U/L (12-78) Alkaline Phosphatase 77 U/L (46-116) Total Creatine Kinase 29 U/L (26-308) Creatine Kinase MB 1.5 NG/ML (0.0-3.6) Creatine Kinase MB Relative Index 5.1 Troponin I 0.000 ng/mL (0.000-0.056) Pro-B-Type Natriuretic Peptide 3014 pg/mL (0-125) H Total Protein 7.6 G/DL (6.4-8.2) Albumin 3.6 G/DL (3.4-5.0) Globulin 4.0 g/dL Albumin/Globulin Ratio 0.9 (1.0-2.7) L Lipase 110 U/L (73-393) Arterial Blood pH 7.198 (7.350-7.450) Arterial Blood Partial Pressure CO2 119.3 mmHg (35.0-45.0) *H Arterial Blood Partial Pressure O2 267.2 mmHg (75.0-100.0) H Arterial Blood HCO3 45.4 mmol/L (22.0-26.0) *H Arterial Blood Oxygen Saturation 99.4 % (95-100) Arterial Blood Base Excess 13.3 (-2-2) *H Ian Test Positive Urine Color Winifred Urine Appearance Clear Urine pH 5 (4.5-8.0) Urine Specific [place] 1.020 (1.005-1.035) Urine Protein 3+ (NEGATIVE) H Urine Glucose (UA) Negative (NEGATIVE) Urine Ketones Negative (NEGATIVE) Urine Blood 2+ (NEGATIVE) H Urine Nitrite Negative (NEGATIVE) Urine Bilirubin Negative (NEGATIVE) Urine Ictotest Negative (NEGATIVE) Urine Urobilinogen Normal MG/DL (0.0-1.0) Urine Leukocyte Esterase Negative (NEGATIVE) Urine RBC 2-4 /HPF (0 - 2) H Urine WBC 0 /HPF (0 - 2) Urine Squamous Epithelial Cells None /LPF (NONE/OCC) Urine Bacteria None /HPF (NONE) White Blood Count 7.0 K/UL (4.8-10.8) Red Blood Count 4.54 M/UL (4.20-5.40) Hemoglobin 11.9 G/DL (12.0-16.0) L Hematocrit 39.1 % (37.0-47.0) Mean Corpuscular Volume 86 FL (80-99) Mean Corpuscular Hemoglobin 26.1 PG (27.0-31.0) L Mean Corpuscular Hemoglobin Concent 30.4 G/DL (32.0-36.0) L Red Cell Distribution Width 17.8 % (11.6-14.8) H Platelet Count 150 K/UL (150-450) Mean Platelet Volume 6.4 FL (6.5-10.1) L Neutrophils (%) (Auto) % (45.0-75.0) Lymphocytes (%) (Auto) % (20.0-45.0) Monocytes (%) (Auto) % (1.0-10.0) Eosinophils (%) (Auto) % (0.0-3.0) Basophils (%) (Auto) % (0.0-2.0) Differential Total Cells Counted 100 Neutrophils % (Manual) 84 % (45-75) H Lymphocytes % (Manual) 4 % (20-45) L Monocytes % (Manual) 6 % (1-10) Eosinophils % (Manual) 0 % (0-3) Basophils % (Manual) 0 % (0-2) Band Neutrophils 6 % (0-8) Nucleated Red Blood Cells 1 /100 WBC Platelet Estimate Adequate Platelet Morphology Normal Red Blood Cell Morphology Anisocytosis 1+ Microbiology Date/Time Source Procedure Growth Status 07/28/18 02:50 Rectum Received Height (Feet): 5 Height (Inches): 4.00 Weight (Pounds): 150 Medications Current Medications Medications (Trade) Dose Ordered Sig/Ibrahima Route PRN Reason Start Time Stop Time Status Last Admin Dose Admin Acetaminophen (Tylenol) 650 mg Q4H PRN ORAL Fever 07/28/18 10:45 08/27/18 10:44 UNV Albuterol/ Ipratropium (Albuterol/ Ipratropium) 3 ml EVERY 4 HOURS PRN HHN Shortness of Breath 07/28/18 10:45 08/02/18 10:44 UNV Apixaban (Eliquis) 5 mg BID ORAL 07/28/18 18:00 08/27/18 17:59 UNV Dextrose (Dextrose 50%) 25 ml Q30M PRN IV Hypoglycemia 07/28/18 10:45 08/27/18 10:44 UNV Dextrose (Dextrose 50%) 50 ml Q30MIN PRN IV Hypoglycemia 07/28/18 10:45 08/27/18 10:44 UNV Furosemide (Lasix) 40 mg EVERY 8 HOURS IV 07/28/18 14:00 08/27/18 13:59 UNV Ondansetron HCl (Zofran) 4 mg Q6H PRN IVP Nausea & Vomiting 07/28/18 10:45 08/27/18 10:44 UNV Ondansetron HCl (Zofran) 4 mg Q6H PRN IVP Nausea & Vomiting 07/28/18 10:45 08/27/18 10:44 UNV Polyethylene Glycol (Miralax) 17 gm DAILYPRN PRN ORAL Constipation 07/28/18 10:45 08/27/18 10:44 UNV Risperidone (RisperDAL) 1 mg BEDTIME ORAL 07/28/18 21:00 08/27/18 20:59 UNV Risperidone (RisperDAL) 1 mg Q6HR PRN ORAL agitation 07/28/18 11:00 08/27/18 10:59 UNV Temazepam (Restoril) 15 mg HSPRN PRN ORAL Insomnia 07/28/18 10:45 08/04/18 10:44 UNV Assessment/Plan Problem List: (1) Respiratory failure, acute ICD Codes: J96.00 - Acute respiratory failure, unspecified whether with hypoxia or hypercapnia SNOMED: 65651955 (2) Acute diastolic CHF (congestive heart failure) ICD Codes: I50.31 - Acute diastolic congestive heart failure SNOMED: 025022717 (3) Pulmonary edema ICD Codes: J81.1 - Pulmonary edema SNOMED: 55201348 (4) Atrial flutter ICD Codes: I48.92 - Atrial flutter SNOMED: 3344853 (5) CAD (coronary artery disease) ICD Codes: I25.10 - Atherosclerosis of coronary artery SNOMED: 729423585 (6) Pacemaker ICD Codes: Z95.0 - Presence of cardiac pacemaker SNOMED: 686761152 (7) Major depression ICD Codes: F32.9 - Major depressive disorder, single episode, unspecified SNOMED: 96356084, 650710068 (8) Wheelchair bound ICD Codes: Z99.3 - Dependence on wheelchair SNOMED: 865743341 (9) Paranoid schizophrenia ICD Codes: F20.0 - Paranoid schizophrenia SNOMED: 30015621 Assessment/Plan respiratory treatment check cxr and bnp in am f/u electrolytes check bun/creatinine titrate fio2 to sat of 92% watch h/h, on anticoagulants Mendel Sierra MD Jul 28, 2018 11:22
[2018-07-28] MEDS ORDERED: Haloperidol 5mg/ml Inj IM PRN ×3 (12:45→16:00)
[2018-07-28] MEDS ORDERED: LORazepam Inj 2mg/ml 1ml IM SCH (12:45)
[2018-07-28] MEDS ORDERED: DiphenhydrAMINE 50mg/ml Inj IM SCH (12:45)
--- NOTE | 2018-07-28 14:05 | NUR ---
NURSE NOTES: Administered Haldol IM as ordered. Informed Dr. Morrison about patient's ABG result and patient needs bipap, Dr. Morrison ok to give
--- NOTE | 2018-07-28 15:13 | NUR ---
NURSE NOTES: Report given to Jovanna OVALLES
--- NOTE | 2018-07-28 15:15 | NUR ---
NURSE NOTES: transferred the patient to [facility]. IV site is intact, patent. RT by the bedside, ALMAS Enamorado by the bedside.
[2018-07-28 16:00] VITALS: BP 132/71
--- NOTE | 2018-07-28 16:00 | NUR ---
NURSE NOTES: received pt from 40% 2E, confused, pt on Bipap 25/5 FIO2 40%, skin warm and dry to touch, intact, vital signs stable, continue monitoring.
--- NOTE | 2018-07-28 16:14 | Cardiology Report ---
APPROVED REPORT EXAM: Two-dimensional and M-mode echocardiogram with Doppler and color Doppler. INDICATION Left ventricular function M-Mode DIMENSIONS IVSd1.3 (0.7-1.1cm)Left Atrium (MM)4.6 (1.6-4.0cm) LVDd3.5 (3.5-5.6cm)Aortic Root2.8 (2.0-3.7cm) PWd1.5 (0.7-1.1cm)Aortic Cusp Exc.1.2 (1.5-2.0cm) IVSs1.4 cm LVDs2.9 (2.5-4.0cm) PWs1.7 cm Technically difficult study due to poor acoustical windows. Normal left ventricular chamber size, systolic function and wall motion to extent visualized. Left ventricular ejection fraction grossly estimated to be 55 %. Mild left ventricular hypertrophy by 2D. Small posterior pericardial effusion. Moderate left atrial enlargement. Mild right atrial enlargement. Right ventricular chamber size is within normal limits. Aortic valve calcification with decreased cusp excursion c/w aortic stenosis. Moderately thickened mitral valve leaflets with reduced excursion c/w mitral stenosis. Heavy mitral annulus and aortic root calcification. Pulmonic valve not well visualized. Normal tricuspid valve structure. IVC dilated at 2.2 cm with slight physiologic collapse. Pacemaker wire present in the right side chambers. A color flow and spectral Doppler study was performed and revealed: Mild to moderate aortic regurgitation. Peak aortic valve gradient of 16 mm Hg and a mean of 9 mmHg. Aortic valve area 1.3 cm2 calculated by continuity equation. Mitral valve peak of 20 mmHg and a mean of 6 mmHg suggestive of moderate mitral stenosis. Moderate mitral regurgitation. Can not determine left ventricular diastolic function by mitral diastolic velocities due to atrial fibrillation. Moderate tricuspid regurgitation. Tricuspid systolic velocities suggests peak right ventricular systolic pressure of 60 mmHg, consistent with borderline severe pulmonary hypertension. Trace pulmonic regurgitation present.
--- NOTE | 2018-07-28 17:19 | Cardiology Report ---
APPROVED REPORT EKG Measurement Heart [id number] Suspect arm lead reversal, interpretation assumes no reversal Atrial fibrillation Low voltage QRS Septal infarct, age undetermined Lateral infarct, age undetermined Abnormal ECG
[2018-07-28] MEDS: Eliquis 2.5mg tablet ORAL SCH (17:24)
--- NOTE | 2018-07-28 17:47 | Cardiology Progress Note ---
Assessment/Plan Assessment/Plan [id number] Objective Last 24 Hour Vital Signs Date Time Temp Pulse Resp B/P (MAP) Pulse Ox O2 Delivery O2 Flow Rate FiO2 07/28/18 17:14 96 20 99 Facial 40 07/28/18 16:00 98.6 99 16 132/71 (91) 97 07/28/18 15:29 99 28 99 Facial 40 07/28/18 12:00 96 07/28/18 11:27 Nasal Cannula 2.0 07/28/18 10:16 98.2 93 23 138/81 95 Simple Mask 6.0 07/28/18 08:42 98.7 82 17 129/60 99 Bi-pap 15.0 40 07/28/18 08:26 40 07/28/18 07:20 85 21 99 Facial 40 07/28/18 06:52 99.0 83 20 146/61 100 Simple Mask 15.0 07/28/18 06:52 84 20 Room Air 07/28/18 06:23 84 20 154/64 100 Room Air Laboratory Tests Test 07/28/18 06:36 07/28/18 06:50 07/28/18 07:15 07/28/18 07:20 Sodium Level 131 MMOL/L (136-145) L Potassium Level 4.9 MMOL/L (3.5-5.1) Chloride Level 89 MMOL/L (98-107) L Carbon Dioxide Level > 45 MMOL/L (21-32) *H Blood Urea Nitrogen 7 mg/dL (7-18) Creatinine 0.5 MG/DL (0.55-1.30) L Estimat Glomerular Filtration Rate mL/min (>60) Glucose Level 134 MG/DL (74-106) H Lactic Acid Level 1.00 mmol/L (0.4-2.0) Calcium Level 9.2 MG/DL (8.5-10.1) Total Bilirubin 0.4 MG/DL (0.2-1.0) Aspartate Amino Transf (AST/SGOT) 16 U/L (15-37) Alanine Aminotransferase (ALT/SGPT) 15 U/L (12-78) Alkaline Phosphatase 77 U/L (46-116) Total Creatine Kinase 29 U/L (26-308) Creatine Kinase MB 1.5 NG/ML (0.0-3.6) Creatine Kinase MB Relative Index 5.1 Troponin I 0.000 ng/mL (0.000-0.056) Pro-B-Type Natriuretic Peptide 3014 pg/mL (0-125) H Total Protein 7.6 G/DL (6.4-8.2) Albumin 3.6 G/DL (3.4-5.0) Globulin 4.0 g/dL Albumin/Globulin Ratio 0.9 (1.0-2.7) L Lipase 110 U/L (73-393) Arterial Blood pH 7.198 (7.350-7.450) Arterial Blood Partial Pressure CO2 119.3 mmHg (35.0-45.0) *H Arterial Blood Partial Pressure O2 267.2 mmHg (75.0-100.0) H Arterial Blood HCO3 45.4 mmol/L (22.0-26.0) *H Arterial Blood Oxygen Saturation 99.4 % (95-100) Arterial Blood Base Excess 13.3 (-2-2) *H Ian Test Positive Urine Color Winifred Urine Appearance Clear Urine pH 5 (4.5-8.0) Urine Specific [place] 1.020 (1.005-1.035) Urine Protein 3+ (NEGATIVE) H Urine Glucose (UA) Negative (NEGATIVE) Urine Ketones Negative (NEGATIVE) Urine Blood 2+ (NEGATIVE) H Urine Nitrite Negative (NEGATIVE) Urine Bilirubin Negative (NEGATIVE) Urine Ictotest Negative (NEGATIVE) Urine Urobilinogen Normal MG/DL (0.0-1.0) Urine Leukocyte Esterase Negative (NEGATIVE) Urine RBC 2-4 /HPF (0 - 2) H Urine WBC 0 /HPF (0 - 2) Urine Squamous Epithelial Cells None /LPF (NONE/OCC) Urine Bacteria None /HPF (NONE) White Blood Count 7.0 K/UL (4.8-10.8) Red Blood Count 4.54 M/UL (4.20-5.40) Hemoglobin 11.9 G/DL (12.0-16.0) L Hematocrit 39.1 % (37.0-47.0) Mean Corpuscular Volume 86 FL (80-99) Mean Corpuscular Hemoglobin 26.1 PG (27.0-31.0) L Mean Corpuscular Hemoglobin Concent 30.4 G/DL (32.0-36.0) L Red Cell Distribution Width 17.8 % (11.6-14.8) H Platelet Count 150 K/UL (150-450) Mean Platelet Volume 6.4 FL (6.5-10.1) L Neutrophils (%) (Auto) % (45.0-75.0) Lymphocytes (%) (Auto) % (20.0-45.0) Monocytes (%) (Auto) % (1.0-10.0) Eosinophils (%) (Auto) % (0.0-3.0) Basophils (%) (Auto) % (0.0-2.0) Differential Total Cells Counted 100 Neutrophils % (Manual) 84 % (45-75) H Lymphocytes % (Manual) 4 % (20-45) L Monocytes % (Manual) 6 % (1-10) Eosinophils % (Manual) 0 % (0-3) Basophils % (Manual) 0 % (0-2) Band Neutrophils 6 % (0-8) Nucleated Red Blood Cells 1 /100 WBC Platelet Estimate Adequate Platelet Morphology Normal Red Blood Cell Morphology Anisocytosis 1+ Test 07/28/18 14:30 Troponin I 0.002 ng/mL (0.000-0.056) Microbiology Date/Time Source Procedure Growth Status 07/28/18 02:50 Rectum Received Akbar Reno MD Jul 28, 2018 17:47
[2018-07-28] MEDS ORDERED: Eliquis 2.5mg tablet ORAL SCH (18:00)
--- NOTE | 2018-07-28 19:05 | NUR ---
HAND-OFF: Report given to EVELYNE OVALLES.
--- NOTE | 2018-07-28 19:05 | NUR ---
NURSE NOTES: Received report from Soraya Neely RN. Patient is asleep in bed with no s/s of acute distress noted. Saturating well on BIPAP settings: 25/5, FiO2 40%. NPO while on bipap. Purewick catheter in place and suctioning well. Right hand 22g IV, intact and patent. Bed locked in lowest position with padded side rails up x3. Call light left within reach. Will continue to monitor.
--- NOTE | 2018-07-28 19:42 | Consultation ---
History of Present Illness General Chief Complaint: Dyspnea/Respdistress Present Illness HPI 77-year-old white female with hx of severe copd and schizophrenia, who presents with chief complaint of altered mental status. the pt was agitated and yelling. the pt is confused and has memory impairment. the pt has waxing and waning of consciousness. The pt received Haldol IM. The pt didn't received any sedatives due to low o2 sat. Allergies: Coded Allergies: PIPERACILLIN (Unverified Allergy, Unknown, 05/21/18) tolerates cephalosporins TAZOBACTAM (Unverified Allergy, Unknown, 03/10/18) Medication History Scheduled Apixaban (Eliquis), 5 MG ORAL BID Apixaban (Eliquis), 5 MG PO EVERY 12 HOURS, (Reported) Furosemide* (Lasix*), 40 MG ORAL TWICE A DAY Pantoprazole* (Protonix*), 40 MG ORAL EVERY 12 HOURS Potassium Chloride (Potassium Chloride), 10 MEQ ORAL DAILY, (Reported) Risperidone* (Risperdal*), 1 MG ORAL BEDTIME Scheduled PRN Acetaminophen With Codeine (T#3) (Tylenol #3 Tab*), 1 TAB ORAL Q4H PRN for For Pain, (Reported) Acetaminophen With Codeine (T#3) (Tylenol #3 Tab*), 1 TAB ORAL Q4H PRN for Severe Pain (Pain Scale 7-10), (Reported) Acetaminophen* (Acetaminophen 325MG Tablet*), 325 MG ORAL Q4H PRN for Fever/ Headache/Mild Pain, (Reported) Acetaminophen* (Acetaminophen 325MG Tablet*), 650 MG ORAL Q4H PRN for Mild Pain (Pain Scale 1-3), (Reported) Acetaminophen* (Acetaminophen 325MG Tablet*), 325 MG ORAL Q4H PRN for Prn Headache/Temp > 101, (Reported) Hydrocodone Bit/Acetaminophen 5-325* ([place] 5-325*), 1 TAB ORAL Q4H PRN Ipratropium/Albuterol Sulfate (DuoNeb 0.5-3(2.5)mg/3ml), 3 ML HHN Q4HR PRN for Shortness of breath, (Reported) Polyethylene Glycol* (Miralax*), 17 GM ORAL DAILYPRN PRN Temazepam* (Restoril*), 15 MG ORAL HSPRN PRN [HYDROcodone/Acetamin 10/325], 1 TAB ORAL Q4H PRN Patient History Limited by: medical condition History Provided By: Medical Record, PMD Healthcare decision maker Resuscitation status Do Not Resuscitate Advanced Directive on File Past Medical/Surgical History Past Medical/Surgical History: (1) Respiratory distress (2) Dyspnea (3) HTN (hypertension) (4) Atrial flutter (5) CAD (coronary artery disease) (6) Dementia (7) Hyponatremia (8) Accelerated hypertension (9) Atrial fibrillation with RVR (10) Pulmonary edema (11) Seizure disorder (12) H/O ETOH abuse (13) Acute diastolic CHF (congestive heart failure) (14) UTI (lower urinary tract infection) (15) COPD (chronic obstructive pulmonary disease) (16) Bipolar depression (17) Cerebral vascular disease (18) Hypovolemic shock (19) Hemorrhagic shock (20) Hypokalemia (21) Gout (22) Bacteremia (23) Gastrointestinal bleeding (24) Major depression (25) Sepsis (26) ATN (acute tubular necrosis) (27) Healthcare-associated pneumonia (28) Wheelchair bound (29) Anemia, chronic disease (30) Acute encephalopathy (31) Intractable back pain (32) Respiratory failure, acute (33) Deep vein thrombosis (DVT) of left lower extremity (34) Pacemaker (35) encephalopathy due to metabolic factor (36) Paranoid schizophrenia Review of Systems Psychiatric: Reports: prior hx, anxiety, hallucinations Physical Exam General Appearance: lethargic, confused, agitated Last 24 Hour Vital Signs Date Time Temp Pulse Resp B/P (MAP) Pulse Ox O2 Delivery O2 Flow Rate FiO2 07/28/18 17:14 96 20 99 Facial 40 07/28/18 16:00 98.6 99 16 132/71 (91) 97 07/28/18 15:29 99 28 99 Facial 40 07/28/18 12:00 96 07/28/18 11:27 Nasal Cannula 2.0 07/28/18 10:16 98.2 93 23 138/81 95 Simple Mask 6.0 07/28/18 08:42 98.7 82 17 129/60 99 Bi-pap 15.0 40 07/28/18 08:26 40 07/28/18 07:20 85 21 99 Facial 40 07/28/18 06:52 99.0 83 20 146/61 100 Simple Mask 15.0 07/28/18 06:52 84 20 Room Air 07/28/18 06:23 84 20 154/64 100 Room Air Laboratory Tests Test 07/28/18 06:36 07/28/18 06:50 07/28/18 07:15 07/28/18 07:20 Sodium Level 131 MMOL/L (136-145) L Potassium Level 4.9 MMOL/L (3.5-5.1) Chloride Level 89 MMOL/L (98-107) L Carbon Dioxide Level > 45 MMOL/L (21-32) *H Blood Urea Nitrogen 7 mg/dL (7-18) Creatinine 0.5 MG/DL (0.55-1.30) L Estimat Glomerular Filtration Rate mL/min (>60) Glucose Level 134 MG/DL (74-106) H Lactic Acid Level 1.00 mmol/L (0.4-2.0) Calcium Level 9.2 MG/DL (8.5-10.1) Total Bilirubin 0.4 MG/DL (0.2-1.0) Aspartate Amino Transf (AST/SGOT) 16 U/L (15-37) Alanine Aminotransferase (ALT/SGPT) 15 U/L (12-78) Alkaline Phosphatase 77 U/L (46-116) Total Creatine Kinase 29 U/L (26-308) Creatine Kinase MB 1.5 NG/ML (0.0-3.6) Creatine Kinase MB Relative Index 5.1 Troponin I 0.000 ng/mL (0.000-0.056) Pro-B-Type Natriuretic Peptide 3014 pg/mL (0-125) H Total Protein 7.6 G/DL (6.4-8.2) Albumin 3.6 G/DL (3.4-5.0) Globulin 4.0 g/dL Albumin/Globulin Ratio 0.9 (1.0-2.7) L Lipase 110 U/L (73-393) Arterial Blood pH 7.198 (7.350-7.450) Arterial Blood Partial Pressure CO2 119.3 mmHg (35.0-45.0) *H Arterial Blood Partial Pressure O2 267.2 mmHg (75.0-100.0) H Arterial Blood HCO3 45.4 mmol/L (22.0-26.0) *H Arterial Blood Oxygen Saturation 99.4 % (95-100) Arterial Blood Base Excess 13.3 (-2-2) *H Ian Test Positive Urine Color Winifred Urine Appearance Clear Urine pH 5 (4.5-8.0) Urine Specific [place] 1.020 (1.005-1.035) Urine Protein 3+ (NEGATIVE) H Urine Glucose (UA) Negative (NEGATIVE) Urine Ketones Negative (NEGATIVE) Urine Blood 2+ (NEGATIVE) H Urine Nitrite Negative (NEGATIVE) Urine Bilirubin Negative (NEGATIVE) Urine Ictotest Negative (NEGATIVE) Urine Urobilinogen Normal MG/DL (0.0-1.0) Urine Leukocyte Esterase Negative (NEGATIVE) Urine RBC 2-4 /HPF (0 - 2) H Urine WBC 0 /HPF (0 - 2) Urine Squamous Epithelial Cells None /LPF (NONE/OCC) Urine Bacteria None /HPF (NONE) White Blood Count 7.0 K/UL (4.8-10.8) Red Blood Count 4.54 M/UL (4.20-5.40) Hemoglobin 11.9 G/DL (12.0-16.0) L Hematocrit 39.1 % (37.0-47.0) Mean Corpuscular Volume 86 FL (80-99) Mean Corpuscular Hemoglobin 26.1 PG (27.0-31.0) L Mean Corpuscular Hemoglobin Concent 30.4 G/DL (32.0-36.0) L Red Cell Distribution Width 17.8 % (11.6-14.8) H Platelet Count 150 K/UL (150-450) Mean Platelet Volume 6.4 FL (6.5-10.1) L Neutrophils (%) (Auto) % (45.0-75.0) Lymphocytes (%) (Auto) % (20.0-45.0) Monocytes (%) (Auto) % (1.0-10.0) Eosinophils (%) (Auto) % (0.0-3.0) Basophils (%) (Auto) % (0.0-2.0) Differential Total Cells Counted 100 Neutrophils % (Manual) 84 % (45-75) H Lymphocytes % (Manual) 4 % (20-45) L Monocytes % (Manual) 6 % (1-10) Eosinophils % (Manual) 0 % (0-3) Basophils % (Manual) 0 % (0-2) Band Neutrophils 6 % (0-8) Nucleated Red Blood Cells 1 /100 WBC Platelet Estimate Adequate Platelet Morphology Normal Red Blood Cell Morphology Anisocytosis 1+ Test 07/28/18 14:30 Troponin I 0.002 ng/mL (0.000-0.056) Microbiology Date/Time Source Procedure Growth Status 07/28/18 02:50 Rectum Received Height (Feet): 5 Height (Inches): 4.00 Weight (Pounds): 150 Medications Current Medications Medications (Trade) Dose Ordered Sig/Ibrahima Route PRN Reason Start Time Stop Time Status Last Admin Dose Admin Acetaminophen (Tylenol) 650 mg Q4H PRN ORAL Fever 07/28/18 15:49 08/27/18 15:48 Albuterol/ Ipratropium (Albuterol/ Ipratropium) 3 ml Q4H PRN HHN Shortness of Breath 07/28/18 15:49 08/02/18 15:48 Apixaban (Eliquis) 5 mg BID ORAL 07/28/18 18:00 08/27/18 17:59 07/28/18 17:24 Dextrose (Dextrose 50%) 25 ml Q30M PRN IV Hypoglycemia 07/28/18 16:15 08/27/18 10:44 Dextrose (Dextrose 50%) 50 ml Q30M PRN IV Hypoglycemia 07/28/18 16:15 08/27/18 10:44 Furosemide (Lasix) 40 mg EVERY 8 HOURS IV 07/28/18 22:00 08/27/18 13:59 Haloperidol Lactate (Haldol) 5 mg Q6H PRN IM Agitation 07/28/18 16:00 08/27/18 15:48 Ondansetron HCl (Zofran) 4 mg Q6H PRN IVP Nausea & Vomiting 07/28/18 15:49 08/27/18 15:48 Polyethylene Glycol (Miralax) 17 gm DAILYPRN PRN ORAL Constipation 07/28/18 15:49 08/27/18 15:48 Risperidone (RisperDAL) 1 mg BEDTIME ORAL 07/28/18 21:00 08/27/18 20:59 Risperidone (RisperDAL) 1 mg Q6H PRN ORAL agitation 07/28/18 15:49 08/27/18 15:48 Temazepam (Restoril) 15 mg HSPRN PRN ORAL Insomnia 07/28/18 15:50 08/04/18 15:49 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 (2) Dementia ICD Codes: F03.90 - Dementia SNOMED: 92418083 (3) Paranoid schizophrenia ICD Codes: F20.0 - Paranoid schizophrenia SNOMED: 41270698 Assessment/Plan Haldol 5mg q 6hr prn agitation Risperdal 1mg po qhs The pt lacks capacity to make decision Continue soft restraints. Luiz Morrison MD Jul 28, 2018 19:42
--- NOTE | 2018-07-28 19:45 | NUR ---
RESPIRATORY NOTE: Received pt on current settings of IPAP 25, EPAP 5, FiO2 40% and back up rate of 16. pt tolerating it so far. no s/s of respiratory distress noted. pt on facial mask with tape to prevent from skin break down. will be continue to monitor pt. bipap is plugged into red outlet, alarms are on and audible.
--- NOTE | 2018-07-28 19:52 | History & Physical ---
History and Physical History & Physicial Dictated for Int Med-Dr Mendoza no. [id number]. Juan Dutta MD Jul 28, 2018 19:52
[2018-07-28 20:00] VITALS: BP 129/77
--- NOTE | 2018-07-28 23:15 | History and Physical Report ---
DATE OF ADMISSION: 07/28/2018 CHIEF COMPLAINT: The patient is a 77-year-old white female, who presents with chief complaint of altered mental status. HISTORY OF PRESENT ILLNESS: The patient was admitted to [facility] in June 2018. Please see history and physical and discharge summary dictated at that time. The patient is a resident of [facility]. According to staff at [facility], the patient was found altered this morning, 07/28/2018. The patient was sluggish and was nonverbal. This is significantly different from her baseline. The patient presented to [facility]. The patient is admitted for altered mental status to rule out acute myocardial infarction versus cerebrovascular accident. REVIEW OF SYSTEMS: Unable to assess secondary to the patient's mental status. PAST MEDICAL HISTORY: Significant for: 1. Atrial flutter. 2. Congestive heart failure. 3. Chronic obstructive pulmonary disease. 4. History of intraventricular pacemaker. 5. Coronary artery disease. 6. Hypertension. 7. Seizure disorder. 8. Paranoid schizophrenia. 9. Depression. PAST SURGICAL HISTORY: Significant for intraventricular pacemaker implantation. CURRENT MEDICATIONS: 1. Tylenol 1000 mg p.o. q.4 h. p.r.n. 2. Vitamin C 500 mg p.o. daily. 3. Colace 100 mg p.o. twice daily. 4. DuoNeb nebulizer every 8 hours. 5. Lasix 40 mg p.o. daily. 6. Lisinopril 5 mg p.o. daily. 7. Potassium chloride 10 mEq p.o. daily. 8. Protonix 40 mg p.o. daily. 9. Remeron 15 mg p.o. nightly. 10. Risperdal 1 mg p.o. twice daily. 11. Tramadol 50 mg p.o. q.6 h. p.r.n. 12. Zofran 4 mg p.o. q.6 h. p.r.n. ALLERGIES: 1. Piperacillin. 2. Tazobactam. SOCIAL HISTORY: The patient is single and lives at [facility] halfway Facility. The patient denies tobacco or alcohol use. PHYSICAL EXAMINATION: VITAL SIGNS: Temperature 98.2, respirations 23, pulse 93, and blood pressure 138/81. GENERAL: The patient is a well-developed and well-nourished white female, in no apparent distress. HEENT: Eyes, pupils are equal and responsive to light and accommodation. Extraocular movements are intact. NECK: Supple without lymphadenopathy. CHEST: Lungs are clear to auscultation bilaterally without wheezes or rales. CARDIOVASCULAR: Regular rate, S1 and S2 normal without murmurs, rubs, or gallops. ABDOMEN: Soft, nontender, and nondistended. Positive bowel sounds. No evidence of hepatosplenomegaly. Currently, no rebound or guarding noted. EXTREMITIES: Negative for clubbing, cyanosis, or edema. RECTAL/GENITAL: Refused. NEUROLOGIC: Cranial nerves II through XII are grossly intact without focal deficits. Motor strength is 5/5 bilaterally. Deep tendon reflexes are 2+ plantar. LABORATORY STUDIES: WBC 7.0, hemoglobin 11.9, hematocrit 39.1, and platelets 150,000. Sodium 131, potassium 4.9, chloride 89, CO2 greater than 45, BUN 7, and creatinine 0.5. Glucose 134. Arterial blood gas, pH 7.198, pCO2 119.3, pO2 267.2, bicarb 45.4, oxygen saturation 99.4, and base excess positive 13.3. Chest x-ray revealed cardiomegaly with bilateral interstitial and airspace edema with bilateral pleural effusions. ASSESSMENT: This is a 77-year-old white female with: 1. Altered mental status. 2. Hypoxia. 3. Atrial flutter. 4. Congestive heart failure. 5. Chronic obstructive pulmonary disease. 6. History of intraventricular pacemaker. 7. Coronary artery disease. 8. Hypertension. 9. Seizure disorder. 10. Paranoid schizophrenia. 11. Depression TREATMENT: 1. Atrial flutter/congestive heart failure. A Cardiology consultation has been obtained with Dr. Reno. An echocardiogram is pending. We will follow recommendations of Cardiology. 2. Atrial flutter as above. A Cardiology consultation has been obtained with Dr. Reno. 3. Hypoxia/chronic obstructive pulmonary disease. A Pulmonary consultation has been obtained with Dr. Mendel Sierra. 4. History of intraventricular pacemaker. 5. Coronary artery disease. 6. Hypertension. 7. Seizure disorder. 8. Paranoid schizophrenia. 9. Depression. Juan Dutta, M.D. DR: CASSANDRA JOB#: [id number] CC:
[2018-07-29] VITALS: BP 118/71
--- NOTE | 2018-07-29 03:00 | Consultation ---
DATE OF CONSULTATION: 07/28/2018 CARDIOLOGY CONSULTATION CONSULTING PHYSICIAN: Akbar Reno M.D. REFERRING PHYSICIANS: 1. Yonathan Mendoza M.D. 2. Mendel Sierra M.D. REASON FOR CONSULTATION: Shortness of breath. HISTORY OF PRESENT ILLNESS: This is an elderly female, who is known to me from prior evaluation and hospitalization. The patient presented to the emergency room today for shortness of breath from a nursing facility. She is sluggish to respond initially when she arrived in the emergency room. She was noted to have the shortness of breath and is being earlier in the morning. On my questioning, she seems to be on BiPAP. She is able to respond to questions; however, I am not sure how accurate the responses are, although responses seemed to be yes including pain in the toenail and pain in the hair. Nevertheless, she does have shortness of breath. She has shortness of breath on exertion. She has shortness of breath at rest. She has shortness of breath when she lies down. She uses two pillows. She has dizziness when she stands up. She has heart pounding or palpitation. She has some chest pain, the location of which is unknown, possibly in the right side. PAST MEDICAL HISTORY: On prior occasions, has had atrial fibrillation/flutter that is permanent. She does have history of bradycardia for which she underwent permanent pacemaker implantation. She has history of diastolic heart failure, COPD, dementia, respiratory failure, toxic metabolic encephalopathy, schizophrenia, coronary artery disease, hypertension, pleural effusion, bacteremia with Staphylococcus hominis, major depression, chronic diastolic dysfunction, overactive bladder, hyperlipidemia, gout, epilepsy, gastroesophageal reflux disease, MRSA colonization, atrial flutter, on anticoagulation previously with Eliquis, systemic hypertension, and psychosis. ALLERGIES: She is reportedly allergic to tazobactam as well as piperacillin. SOCIAL HISTORY: She is a resident, initially she used to smoke 30 years ago. No alcoholic beverages. She used to drink 30 years ago. REVIEW OF SYSTEMS: GASTROINTESTINAL: Positive for nausea. Positive for vomiting. Positive for diarrhea. Positive for constipation. GENITOURINARY: Positive for discomfort on urination. Positive for blood in the urine. PULMONARY: Positive for cough and positive for wheezing. CONSTITUTIONAL: Positive for fever. Positive for chills. PHYSICAL EXAMINATION: VITAL SIGNS: Blood pressure 132/71 with heart rate of 99, respirations 16, and temperature 98.2. GENERAL: Shows to be elderly female. She is on BiPAP treatment and she is very hard of hearing. NECK: Supple. No jugular venous distention. LUNGS: Decreased air entry bilaterally. No significant crackles noted. CARDIAC: Not significant tachycardia. No bradycardia. No heaves or thrills. ABDOMEN: Abdomen is soft and obese. Positive bowel sounds. EXTREMITIES: There is no edema. NEUROLOGICAL: Awake, responsive, and communicative, although hard of hearing. LABORATORY AND DIAGNOSTIC DATA: White count of 7, hemoglobin 11.9, and platelet count of 150,000. Her blood gases - pH of 7.19, pCO2 of 119, pO2 of , bicarbonate of 45, and saturation of 94. Sodium is 131, potassium 4.9, chloride 89, bicarbonate of 45, BUN 7, creatinine 0.5, and glucose of 134. Lactic acid of 1. Calcium is 9.2. CPK of 29. Troponin of 0.00 and 0.002. Her proBNP is 2014. She has had levels as high as and as low as 1400 previously. Lipase of 110. Urinalysis appears to show 2 to 4 rbc's and 0 wbc's. A chest x-ray performed in the emergency room shows cardiomegaly, bilateral interstitial and airspace edema, and bilateral pleural effusions. EKG shows atrial fibrillation and right axis deviation with flutter pattern. An echocardiogram was performed today, which showed a technically difficult study with ejection fraction of 55%, heavy mitral annular calcification, mild to moderate aortic regurgitation with a peak gradient of 16, mean gradient of 9, aortic valve area of 1.3, mitral valve peak gradient of 20, mean gradient of 6, moderate mitral regurgitation, and moderate tricuspid regurgitation with pulmonary systolic pressure of 60. ASSESSMENT AND PLAN: 1. Permanent atrial fibrillation/flutter. 2. History of permanent pacemaker implantation, leadless device. 3. COPD. 4. Diastolic heart failure. 5. Bilateral pleural effusion. 6. Pulmonary hypertension. 7. Mild to moderate mitral and aortic valvular disease. 8. Dementia. Dr. Sierra, and Dr. Mendoza, this patient was seen in cardiac consultation. The patient's air entry appears to be low. She does have evidence of respiratory acidosis, probably chronic and acute component. Continue with BiPAP therapy. Diuretics should be given for history of diastolic heart failure and BiPAP should be followed and creatinine should be followed with diuretics. Natriuretic peptide appears moderately elevated, but she has had levels that have been higher than that previously and even lower than that. Anticoagulation with Eliquis should be continued and pulmonary treatment as per recommendations of Dr. Sierra for possibility of COPD exacerbation as well. Akbar Reno M.D. DR: FE JOB#: [id number] CC:
[2018-07-29 04:00] VITALS: BP 127/70
[2018-07-29 06:22] LABS: BASOPHILS % (AUTO) 1.3 % (0.0-2.0); EOSINOPHILS % (AUTO) 1.4 % (0.0-3.0); HEMATOCRIT 29.7 % (37.0-47.0); HEMOGLOBIN 9.3 G/DL (12.0-16.0); LYMPHOCYTES % (AUTO) 10.7 % (20.0-45.0); MEAN CORPUSCULAR VOLUME 85 FL (80-99); MONOCYTES % (AUTO) 9.4 % (1.0-10.0); NEUTROPHILS % (AUTO) 77.3 % (45.0-75.0); PLATELET COUNT 164 K/UL (150-450); RED BLOOD COUNT 3.51 M/UL (4.20-5.40); RED CELL DISTRIBUTION WIDTH 17.7 % (11.6-14.8); WHITE BLOOD COUNT 6.6 K/UL (4.8-10.8)
[2018-07-29 06:37] LABS: ALANINE AMINOTRANSFERASE 19 U/L (12-78); ALBUMIN 2.8 G/DL (3.4-5.0); ALBUMIN/GLOBULIN RATIO 0.9 (1.0-2.7); ALKALINE PHOSPHATASE 57 U/L (46-116); ANION GAP 0 mmol/L (5-15); ASPARTATE AMINO TRANSFERASE 11 U/L (15-37); BILIRUBIN,TOTAL 0.5 MG/DL (0.2-1.0); BLOOD UREA NITROGEN 8 mg/dL (7-18); CALCIUM 8.8 MG/DL (8.5-10.1); CHLORIDE 92 MMOL/L (98-107); CREATININE 0.5 MG/DL (0.55-1.30); PHOSPHORUS 3.3 MG/DL (2.5-4.9); POTASSIUM 3.4 MMOL/L (3.5-5.1); SODIUM 136 MMOL/L (136-145)
[2018-07-29 06:38] LABS: CARBON DIOXIDE 44 MMOL/L (21-32)
--- NOTE | 2018-07-29 07:05 | NUR ---
HAND-OFF: Report given to Jaime Martínez RN.
--- NOTE | 2018-07-29 07:06 | NUR ---
NURSE NOTES: RECEIVED PATIENT FROM Wilton STUBBS RN. PATIENT IS LYING IN BED, ASLEEP. HOOKED TO BEFORE SCHOOL. ON BIPAP 25/5, FIO2 40%. NO SIGNS OF RESPI OR CARDIO DISTRESS OF THE MOMENT. NPO DUE TO BIPAP. NOTED PUREWICK. IV ON R HAND G22, SL. SIDE RAILS PADDED. BED AT LOWEST POSITION. SIDE RAILS P. CALL LIGHT WITHIN REACH. WILL CONTINUE TO MONITOR.
[2018-07-29 08:00] VITALS: BP 113/59
--- NOTE | 2018-07-29 08:15 | NUR ---
NURSE NOTES:Pt presents with moisture intertrigo L groin,erythema R groin. Incontinence associated dermatitis noted to perineum and perianal area. Non-blanchable erythema with fluctuance noted to R heel .L heel soft but blanchable. Pt educated on wound prevention and encouraged to turn frequently.Pt also noted to have erythema bilat breasts folds. Recommendations:Apply Triad Paste to groin and buttocks with each perineal care . Apply Optifoam drsg to sacral area .Change every 3 days and prn. Apply Cavilon Skin Barrier to heels. Off-load with pillow. Encourage and assist with repositioning at least every 2 hours or as tolerated.
[2018-07-29] MEDS: Eliquis 2.5mg tablet ORAL SCH ×2 (09:00→16:56)
--- NOTE | 2018-07-29 09:25 | NUR ---
RADIOLOGY DEPT CHEST X-RAY DONE.-P.DYE
--- NOTE | 2018-07-29 11:17 | Diagnostic Imaging Report ---
Indication: Dyspnea Comparison: 07/28/2018 A single view chest radiograph was obtained. Findings: Interstitial edema again demonstrated with slight improvement although still moderate disease is present. There is probable left pleural effusion. Heart is enlarged. IMPRESSION: Interstitial edema marginally improved over the last 24 hours
--- NOTE | 2018-07-29 11:44 | Pulmonology Progress Note ---
Assessment/Plan Problems: (1) Respiratory failure, acute (2) Acute diastolic CHF (congestive heart failure) (3) Pulmonary edema (4) Atrial flutter (5) CAD (coronary artery disease) (6) Pacemaker (7) Major depression (8) Wheelchair bound (9) Paranoid schizophrenia Assessment/Plan titrate BIPAP continue diuretics check electrolytes K supplement all reviewed continue antidepressant echo reviewed check CXR and BNP in am decrease lasix once the bun/creatinine started to rise. dvt prophylaxis. Subjective ROS Limited/Unobtainable: No Interval Events: on and off bipap Allergies: Coded Allergies: PIPERACILLIN (Unverified Allergy, Unknown, 05/21/18) tolerates cephalosporins TAZOBACTAM (Unverified Allergy, Unknown, 03/10/18) Objective Last 24 Hour Vital Signs Date Time Temp Pulse Resp B/P (MAP) Pulse Ox O2 Delivery O2 Flow Rate FiO2 07/29/18 11:27 Venturi Mask 14.0 55 07/29/18 11:26 98 Venturi Mask 14.0 55 07/29/18 09:28 76 16 99 Full Face 40 07/29/18 08:00 79 07/29/18 08:00 97.9 70 16 113/59 (77) 100 07/29/18 07:29 74 17 99 Facial 40 07/29/18 05:03 85 19 99 Facial 40 07/29/18 04:00 Bi-pap 07/29/18 04:00 98.5 82 16 127/70 (89) 98 07/29/18 03:35 84 07/29/18 03:31 79 16 99 Full Face 40 07/29/18 01:27 89 21 99 Full Face 40 07/29/18 00:00 Bi-pap 07/29/18 00:00 98.6 73 16 118/71 (87) 100 07/28/18 23:30 80 16 99 Full Face 40 07/28/18 23:30 77 07/28/18 21:03 108 16 98 Facial 40 07/28/18 21:00 Bi-pap 07/28/18 20:00 98.5 94 17 129/77 (94) 98 07/28/18 20:00 88 07/28/18 19:41 110 16 99 Facial 40 07/28/18 17:14 96 20 99 Facial 40 07/28/18 16:00 98.6 99 16 132/71 (91) 97 07/28/18 15:29 99 28 99 Facial 40 07/28/18 12:00 96 Intake and Output 07/28/18 07/29/18 19:00 07:00 Output Total 850 ml Balance -850 ml Output Urine Total 850 ml # Voids 4 # Bowel Movements 1 2 General Appearance: WD/WN HEENT: normocephalic, atraumatic Respiratory/Chest: chest wall non-tender, respiratory distress, crackles/rales , rhonchi Breasts: no masses Cardiovascular: normal peripheral pulses Abdomen: normal bowel sounds, soft, non tender Genitourinary: normal external genitalia Extremities: no clubbing Skin: no rash Neurologic/Psychiatric: bulk fluids handler II-XII grossly normal Lymphatic: no groin adenopathy Microbiology Date/Time Source Procedure Growth Status 07/28/18 06:50 Blood Blood Culture - Preliminary Resulted 07/28/18 06:36 Blood Blood Culture - Preliminary Resulted 07/28/18 02:50 Rectum Received Laboratory Tests 07/28/18 14:30: Troponin I 0.002 07/29/18 05:05: Troponin I 0.005, White Blood Count 6.6, Red Blood Count 3.51L, Hemoglobin 9.3L , Hematocrit 29.7L, Mean Corpuscular Volume 85, Mean Corpuscular Hemoglobin 26.4L, Mean Corpuscular Hemoglobin Concent 31.2L, Red Cell Distribution Width 17.7H, Platelet Count 164, Mean Platelet Volume 6.4L, Neutrophils (%) (Auto) 77.3H, Lymphocytes (%) (Auto) 10.7L, Monocytes (%) (Auto) 9.4, Eosinophils (%) ( Auto) 1.4, Basophils (%) (Auto) 1.3, Sodium Level 136, Potassium Level 3.4L, Chloride Level 92L, Carbon Dioxide Level 44*H, Anion Gap 0L, Blood Urea Nitrogen 8, Creatinine 0.5L, Estimat Glomerular Filtration Rate , Glucose Level 84, Calcium Level 8.8, Phosphorus Level 3.3, Total Bilirubin 0.5, Aspartate Amino Transf (AST/SGOT) 11L, Alanine Aminotransferase (ALT/SGPT) 19, Alkaline Phosphatase 57, Pro-B-Type Natriuretic Peptide 3480H, Total Protein 5.9L, Albumin 2.8L, Globulin 3.1, Albumin/Globulin Ratio 0.9L Current Medications Medications (Trade) Dose Ordered Sig/Ibrahima Route PRN Reason Start Time Stop Time Status Last Admin Dose Admin Acetaminophen (Tylenol) 650 mg Q4H PRN ORAL Fever 07/28/18 15:49 08/27/18 15:48 Albuterol/ Ipratropium (Albuterol/ Ipratropium) 3 ml Q4H PRN HHN Shortness of Breath 07/28/18 15:49 08/02/18 15:48 Apixaban (Eliquis) 5 mg BID ORAL 07/28/18 18:00 08/27/18 17:59 07/28/18 17:24 Dextrose (Dextrose 50%) 25 ml Q30M PRN IV Hypoglycemia 07/28/18 16:15 08/27/18 10:44 Dextrose (Dextrose 50%) 50 ml Q30M PRN IV Hypoglycemia 07/28/18 16:15 08/27/18 10:44 Furosemide (Lasix) 40 mg EVERY 8 HOURS IV 07/28/18 22:00 08/27/18 13:59 07/29/18 05:39 Haloperidol Lactate (Haldol) 5 mg Q6H PRN IM Agitation 07/28/18 16:00 08/27/18 15:48 Ondansetron HCl (Zofran) 4 mg Q6H PRN IVP Nausea & Vomiting 07/28/18 15:49 08/27/18 15:48 Polyethylene Glycol (Miralax) 17 gm DAILYPRN PRN ORAL Constipation 07/28/18 15:49 08/27/18 15:48 Risperidone (RisperDAL) 1 mg BEDTIME ORAL 07/28/18 21:00 08/27/18 20:59 07/28/18 21:04 Risperidone (RisperDAL) 1 mg Q6H PRN ORAL agitation 07/28/18 15:49 08/27/18 15:48 Temazepam (Restoril) 15 mg HSPRN PRN ORAL Insomnia 07/28/18 15:50 08/04/18 15:49 Mendel Sierra MD Jul 29, 2018 11:44
[2018-07-29 12:00] VITALS: BP 147/61
--- NOTE | 2018-07-29 12:14 | General Progress Note ---
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 (2) Dementia ICD Codes: F03.90 - Dementia SNOMED: 11594122 (3) Paranoid schizophrenia ICD Codes: F20.0 - Paranoid schizophrenia SNOMED: 67423790 Status: unchanged Assessment/Plan Haldol 5mg q 6hr prn agitation Risperdal 1mg po qhs The pt lacks capacity to make decision Continue soft restraints. Subjective Neurologic/Psychiatric: Reports: anxiety Allergies: Coded Allergies: PIPERACILLIN (Unverified Allergy, Unknown, 05/21/18) tolerates cephalosporins TAZOBACTAM (Unverified Allergy, Unknown, 03/10/18) Subjective the pt cont to waxes and wanes the pt cont to be agitated the pt is yelling the pt is confused Objective Last 24 Hour Vital Signs Date Time Temp Pulse Resp B/P (MAP) Pulse Ox O2 Delivery O2 Flow Rate FiO2 07/29/18 11:27 Venturi Mask 14.0 55 07/29/18 11:26 98 Venturi Mask 14.0 55 07/29/18 09:28 76 16 99 Full Face 40 07/29/18 08:00 79 07/29/18 08:00 97.9 70 16 113/59 (77) 100 07/29/18 07:29 74 17 99 Facial 40 07/29/18 05:03 85 19 99 Facial 40 07/29/18 04:00 Bi-pap 07/29/18 04:00 98.5 82 16 127/70 (89) 98 07/29/18 03:35 84 07/29/18 03:31 79 16 99 Full Face 40 07/29/18 01:27 89 21 99 Full Face 40 07/29/18 00:00 Bi-pap 07/29/18 00:00 98.6 73 16 118/71 (87) 100 07/28/18 23:30 80 16 99 Full Face 40 07/28/18 23:30 77 07/28/18 21:03 108 16 98 Facial 40 07/28/18 21:00 Bi-pap 07/28/18 20:00 98.5 94 17 129/77 (94) 98 07/28/18 20:00 88 07/28/18 19:41 110 16 99 Facial 40 07/28/18 17:14 96 20 99 Facial 40 07/28/18 16:00 98.6 99 16 132/71 (91) 97 07/28/18 15:29 99 28 99 Facial 40 Intake and Output 07/28/18 07/29/18 19:00 07:00 Output Total 850 ml Balance -850 ml Output Urine Total 850 ml # Voids 4 # Bowel Movements 1 2 Laboratory Tests 07/28/18 14:30: Troponin I 0.002 07/29/18 05:05: Troponin I 0.005, White Blood Count 6.6, Red Blood Count 3.51L, Hemoglobin 9.3L , Hematocrit 29.7L, Mean Corpuscular Volume 85, Mean Corpuscular Hemoglobin 26.4L, Mean Corpuscular Hemoglobin Concent 31.2L, Red Cell Distribution Width 17.7H, Platelet Count 164, Mean Platelet Volume 6.4L, Neutrophils (%) (Auto) 77.3H, Lymphocytes (%) (Auto) 10.7L, Monocytes (%) (Auto) 9.4, Eosinophils (%) ( Auto) 1.4, Basophils (%) (Auto) 1.3, Sodium Level 136, Potassium Level 3.4L, Chloride Level 92L, Carbon Dioxide Level 44*H, Anion Gap 0L, Blood Urea Nitrogen 8, Creatinine 0.5L, Estimat Glomerular Filtration Rate , Glucose Level 84, Calcium Level 8.8, Phosphorus Level 3.3, Total Bilirubin 0.5, Aspartate Amino Transf (AST/SGOT) 11L, Alanine Aminotransferase (ALT/SGPT) 19, Alkaline Phosphatase 57, Pro-B-Type Natriuretic Peptide 3480H, Total Protein 5.9L, Albumin 2.8L, Globulin 3.1, Albumin/Globulin Ratio 0.9L Height (Feet): 5 Height (Inches): 4.00 Weight (Pounds): 177 General Appearance: lethargic, confused, moderate distress, agitated Luiz Morrison MD Jul 29, 2018 12:14
--- NOTE | 2018-07-29 12:22 | NUR ---
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 98.7 HR 84 RR 20 B/P 154/64 BIPAP 20/12 FIO2 40% PH 7.18 PCO2 119.3 PO2 267.2 HCO3 45.4 O2 SAT 99.4 CO2 >45 BNP 3024 CXR= CARDIOMEGALY WITH BILATERAL PLEURAL EFFUSION IS: LASIX IV ALB HHN ADMITTED TO STEP DOWN STEP DOWN STATUS DCP PENDING HOSPITAL STAY
--- NOTE | 2018-07-29 13:07 | Internal Med Progress Note ---
Subjective Date of Service: Jul 29, 2018 Physician Name Juan Dutta Attending Physician Yonathan Mendoza MD Current Medications Medications (Trade) Dose Ordered Sig/Ibrahima Route PRN Reason Start Time Stop Time Status Last Admin Dose Admin Acetaminophen (Tylenol) 650 mg Q4H PRN ORAL Fever 07/28/18 15:49 08/27/18 15:48 Albuterol/ Ipratropium (Albuterol/ Ipratropium) 3 ml Q4H PRN HHN Shortness of Breath 07/28/18 15:49 08/02/18 15:48 Apixaban (Eliquis) 5 mg BID ORAL 07/28/18 18:00 08/27/18 17:59 07/28/18 17:24 Dextrose (Dextrose 50%) 25 ml Q30M PRN IV Hypoglycemia 07/28/18 16:15 08/27/18 10:44 Dextrose (Dextrose 50%) 50 ml Q30M PRN IV Hypoglycemia 07/28/18 16:15 08/27/18 10:44 Furosemide (Lasix) 40 mg EVERY 8 HOURS IV 07/28/18 22:00 08/27/18 13:59 07/29/18 05:39 Haloperidol Lactate (Haldol) 5 mg Q6H PRN IM Agitation 07/28/18 16:00 08/27/18 15:48 Ondansetron HCl (Zofran) 4 mg Q6H PRN IVP Nausea & Vomiting 07/28/18 15:49 08/27/18 15:48 Polyethylene Glycol (Miralax) 17 gm DAILYPRN PRN ORAL Constipation 07/28/18 15:49 08/27/18 15:48 Potassium Chloride 100 ml @ 100 mls/hr Q1HR IVPB 07/29/18 12:00 07/29/18 15:59 07/29/18 12:12 Risperidone (RisperDAL) 1 mg BEDTIME ORAL 07/28/18 21:00 08/27/18 20:59 07/28/18 21:04 Temazepam (Restoril) 15 mg HSPRN PRN ORAL Insomnia 07/28/18 15:50 08/04/18 15:49 Vancomycin HCl (Vanco rx to dose) 1 ea DAILY PRN MISC Per rx protocol 07/29/18 13:00 08/28/18 12:59 UNV Allergies: Coded Allergies: PIPERACILLIN (Unverified Allergy, Unknown, 05/21/18) tolerates cephalosporins TAZOBACTAM (Unverified Allergy, Unknown, 03/10/18) ROS Limited/Unobtainable: Yes Neurologic/Psychiatric: Denies: other Subjective 77 YO F admitted with hypoxia and altered mental status. Now sepsis. Cover for Int Med-Dr Mendoza. CHRISTOPHER. Tolerating venturi mask. Objective Last Vital Signs Date Time Temp Pulse Resp B/P (MAP) Pulse Ox O2 Delivery O2 Flow Rate FiO2 07/29/18 11:27 Venturi Mask 14.0 55 07/29/18 11:26 98 07/29/18 09:28 76 16 07/29/18 08:00 97.9 113/59 (77) Laboratory Tests Test 07/28/18 14:30 07/29/18 05:05 Troponin I 0.002 ng/mL (0.000-0.056) 0.005 ng/mL (0.000-0.056) White Blood Count 6.6 K/UL (4.8-10.8) Red Blood Count 3.51 M/UL (4.20-5.40) L Hemoglobin 9.3 G/DL (12.0-16.0) L Hematocrit 29.7 % (37.0-47.0) L Mean Corpuscular Volume 85 FL (80-99) Mean Corpuscular Hemoglobin 26.4 PG (27.0-31.0) L Mean Corpuscular Hemoglobin Concent 31.2 G/DL (32.0-36.0) L Red Cell Distribution Width 17.7 % (11.6-14.8) H Platelet Count 164 K/UL (150-450) Mean Platelet Volume 6.4 FL (6.5-10.1) L Neutrophils (%) (Auto) 77.3 % (45.0-75.0) H Lymphocytes (%) (Auto) 10.7 % (20.0-45.0) L Monocytes (%) (Auto) 9.4 % (1.0-10.0) Eosinophils (%) (Auto) 1.4 % (0.0-3.0) Basophils (%) (Auto) 1.3 % (0.0-2.0) Sodium Level 136 MMOL/L (136-145) Potassium Level 3.4 MMOL/L (3.5-5.1) L Chloride Level 92 MMOL/L (98-107) L Carbon Dioxide Level 44 MMOL/L (21-32) *H Anion Gap 0 mmol/L (5-15) L Blood Urea Nitrogen 8 mg/dL (7-18) Creatinine 0.5 MG/DL (0.55-1.30) L Estimat Glomerular Filtration Rate mL/min (>60) Glucose Level 84 MG/DL (74-106) Calcium Level 8.8 MG/DL (8.5-10.1) Phosphorus Level 3.3 MG/DL (2.5-4.9) Total Bilirubin 0.5 MG/DL (0.2-1.0) Aspartate Amino Transf (AST/SGOT) 11 U/L (15-37) L Alanine Aminotransferase (ALT/SGPT) 19 U/L (12-78) Alkaline Phosphatase 57 U/L (46-116) Pro-B-Type Natriuretic Peptide 3480 pg/mL (0-125) H Total Protein 5.9 G/DL (6.4-8.2) L Albumin 2.8 G/DL (3.4-5.0) L Globulin 3.1 g/dL Albumin/Globulin Ratio 0.9 (1.0-2.7) L Microbiology Date/Time Source Procedure Growth Status 07/28/18 06:50 Blood Blood Culture - Preliminary Resulted 07/28/18 06:36 Blood Blood Culture - Preliminary Resulted 07/28/18 02:50 Rectum Received Intake and Output 07/28/18 07/29/18 19:00 07:00 Output Total 850 ml Balance -850 ml Output Urine Total 850 ml # Voids 4 # Bowel Movements 1 2 Objective PHYSICAL EXAMINATION: GENERAL: The patient is a well-developed and well-nourished white female, in no apparent distress. HEENT: Eyes, pupils are equal and responsive to light and accommodation. Extraocular movements are intact. NECK: Supple without lymphadenopathy. CHEST: Venturi mask; Lungs are clear to auscultation bilaterally without wheezes or rales. CARDIOVASCULAR: Regular rate, S1 and S2 normal without murmurs, rubs, or gallops. ABDOMEN: Soft, nontender, and nondistended. Positive bowel sounds. No evidence of hepatosplenomegaly. Currently, no rebound or guarding noted. EXTREMITIES: Negative for clubbing, cyanosis, or edema. RECTAL/GENITAL: Refused. NEUROLOGIC: Cranial nerves II through XII are grossly intact without focal deficits. Motor strength is 5/5 bilaterally. Deep tendon reflexes are 2+ plantar. Assessment/Plan Problem List: (1) CHF (congestive heart failure) Assessment & Plan: See cardiology note. (2) Altered mental status (3) Hypoxia (4) Respiratory distress Assessment & Plan: On venturi mask. See pulmonary note. (5) Sepsis Assessment & Plan: Gram pos cocci. Await ID and sensitivity. Await ID consult. Start vanco. (6) Atrial flutter Assessment & Plan: Continue eliquis (7) HTN (hypertension) (8) COPD (chronic obstructive pulmonary disease) (9) Pacemaker (10) Paranoid schizophrenia (11) Seizure disorder (12) CAD (coronary artery disease) Status: not improved Juan Dutta MD Jul 29, 2018 13:06
--- NOTE | 2018-07-29 14:38 | Consultation ---
History of Present Illness General Date patient seen: Jul 29, 2018 Chief Complaint: Dyspnea/Respdistress Present Illness HPI 77 y/o F with hx of severe COPD, dCHF, CAD s/p stents, GERD, CVA/TIA, b/l hip replacement, HTN, atrial flutter s/p PPM, L DVT, seizure disorder, depression/ schizophrenia, history of alcohol abuse, recurrent admissions, UTI, CONS bacteremia, SNF resident presents to ED on 07/28 with SOB/ESPINOZA, orthopnea, palpitation and chest pain. Upon admission she was noted to have respiratory acidosis and was placed on bipap. Of note patient previously admitted here for probable Legionella PNA and proteus UTI (04/2018) and for CHF exacerbation and PNA on 05/2018. No report of vomiting, diarrhea. Allergies: Coded Allergies: PIPERACILLIN (Unverified Allergy, Unknown, 05/21/18) tolerates cephalosporins TAZOBACTAM (Unverified Allergy, Unknown, 03/10/18) Medication History Scheduled Apixaban (Eliquis), 5 MG ORAL BID Apixaban (Eliquis), 5 MG PO EVERY 12 HOURS, (Reported) Furosemide* (Lasix*), 40 MG ORAL TWICE A DAY Pantoprazole* (Protonix*), 40 MG ORAL EVERY 12 HOURS Potassium Chloride (Potassium Chloride), 10 MEQ ORAL DAILY, (Reported) Risperidone* (Risperdal*), 1 MG ORAL BEDTIME Scheduled PRN Acetaminophen With Codeine (T#3) (Tylenol #3 Tab*), 1 TAB ORAL Q4H PRN for For Pain, (Reported) Acetaminophen With Codeine (T#3) (Tylenol #3 Tab*), 1 TAB ORAL Q4H PRN for Severe Pain (Pain Scale 7-10), (Reported) Acetaminophen* (Acetaminophen 325MG Tablet*), 325 MG ORAL Q4H PRN for Fever/ Headache/Mild Pain, (Reported) Acetaminophen* (Acetaminophen 325MG Tablet*), 650 MG ORAL Q4H PRN for Mild Pain (Pain Scale 1-3), (Reported) Acetaminophen* (Acetaminophen 325MG Tablet*), 325 MG ORAL Q4H PRN for Prn Headache/Temp > 101, (Reported) Hydrocodone Bit/Acetaminophen 5-325* ([place]wood 5-325*), 1 TAB ORAL Q4H PRN Ipratropium/Albuterol Sulfate (DuoNeb 0.5-3(2.5)mg/3ml), 3 ML HHN Q4HR PRN for Shortness of breath, (Reported) Polyethylene Glycol* (Miralax*), 17 GM ORAL DAILYPRN PRN Temazepam* (Restoril*), 15 MG ORAL HSPRN PRN [HYDROcodone/Acetamin 10/325], 1 TAB ORAL Q4H PRN Patient History Healthcare decision maker Resuscitation status Do Not Resuscitate Advanced Directive on File Patient History Narrative Pmhx: as above Shx: She is a resident, initially she used to smoke 30 years ago. No alcoholic beverages. She used to drink 30 years ago. Fhx: non contributory Review of Systems All Other Systems: negative except mentioned in HPI Physical Exam Physical Exam Narrative GENERAL: The patient is a well-developed and well-nourished white female, in no apparent distress. HEENT: Eyes, pupils are equal and responsive to light and accommodation. Extraocular movements are intact. NECK: Supple without lymphadenopathy. CHEST: Lungs are clear to auscultation bilaterally without wheezes or rales. CARDIOVASCULAR: Regular rate, S1 and S2 normal without murmurs, rubs, or gallops. ABDOMEN: Soft, nontender, and nondistended. Positive bowel sounds. No evidence of hepatosplenomegaly. Currently, no rebound or guarding noted. EXTREMITIES: Negative for clubbing, cyanosis, or edema. NEUROLOGIC: Cranial nerves II through XII are grossly intact without focal deficits. Motor strength is 5/5 bilaterally. Deep tendon reflexes are 2+ plantar. Last 24 Hour Vital Signs Date Time Temp Pulse Resp B/P (MAP) Pulse Ox O2 Delivery O2 Flow Rate FiO2 07/29/18 12:00 98.2 88 22 147/61 (89) 100 07/29/18 12:00 Venturi Mask 14.0 07/29/18 11:35 87 07/29/18 11:27 Venturi Mask 14.0 55 07/29/18 11:26 98 Venturi Mask 14.0 55 07/29/18 09:28 76 16 99 Full Face 40 07/29/18 08:00 79 07/29/18 08:00 Bi-pap 07/29/18 08:00 97.9 70 16 113/59 (77) 100 07/29/18 07:29 74 17 99 Facial 40 07/29/18 05:03 85 19 99 Facial 40 07/29/18 04:00 Bi-pap 07/29/18 04:00 98.5 82 16 127/70 (89) 98 07/29/18 03:35 84 07/29/18 03:31 79 16 99 Full Face 40 07/29/18 01:27 89 21 99 Full Face 40 07/29/18 00:00 Bi-pap 07/29/18 00:00 98.6 73 16 118/71 (87) 100 07/28/18 23:30 80 16 99 Full Face 40 07/28/18 23:30 77 07/28/18 21:03 108 16 98 Facial 40 07/28/18 21:00 Bi-pap 07/28/18 20:00 98.5 94 17 129/77 (94) 98 07/28/18 20:00 88 07/28/18 19:41 110 16 99 Facial 40 07/28/18 17:14 96 20 99 Facial 40 07/28/18 16:00 98.6 99 16 132/71 (91) 97 07/28/18 15:29 99 28 99 Facial 40 Intake and Output 07/28/18 07/29/18 19:00 07:00 Output Total 850 ml Balance -850 ml Output Urine Total 850 ml # Voids 4 # Bowel Movements 1 2 Laboratory Tests Test 07/28/18 14:30 07/29/18 05:05 Troponin I 0.002 ng/mL (0.000-0.056) 0.005 ng/mL (0.000-0.056) White Blood Count 6.6 K/UL (4.8-10.8) Red Blood Count 3.51 M/UL (4.20-5.40) L Hemoglobin 9.3 G/DL (12.0-16.0) L Hematocrit 29.7 % (37.0-47.0) L Mean Corpuscular Volume 85 FL (80-99) Mean Corpuscular Hemoglobin 26.4 PG (27.0-31.0) L Mean Corpuscular Hemoglobin Concent 31.2 G/DL (32.0-36.0) L Red Cell Distribution Width 17.7 % (11.6-14.8) H Platelet Count 164 K/UL (150-450) Mean Platelet Volume 6.4 FL (6.5-10.1) L Neutrophils (%) (Auto) 77.3 % (45.0-75.0) H Lymphocytes (%) (Auto) 10.7 % (20.0-45.0) L Monocytes (%) (Auto) 9.4 % (1.0-10.0) Eosinophils (%) (Auto) 1.4 % (0.0-3.0) Basophils (%) (Auto) 1.3 % (0.0-2.0) Sodium Level 136 MMOL/L (136-145) Potassium Level 3.4 MMOL/L (3.5-5.1) L Chloride Level 92 MMOL/L (98-107) L Carbon Dioxide Level 44 MMOL/L (21-32) *H Anion Gap 0 mmol/L (5-15) L Blood Urea Nitrogen 8 mg/dL (7-18) Creatinine 0.5 MG/DL (0.55-1.30) L Estimat Glomerular Filtration Rate mL/min (>60) Glucose Level 84 MG/DL (74-106) Calcium Level 8.8 MG/DL (8.5-10.1) Phosphorus Level 3.3 MG/DL (2.5-4.9) Total Bilirubin 0.5 MG/DL (0.2-1.0) Aspartate Amino Transf (AST/SGOT) 11 U/L (15-37) L Alanine Aminotransferase (ALT/SGPT) 19 U/L (12-78) Alkaline Phosphatase 57 U/L (46-116) Pro-B-Type Natriuretic Peptide 3480 pg/mL (0-125) H Total Protein 5.9 G/DL (6.4-8.2) L Albumin 2.8 G/DL (3.4-5.0) L Globulin 3.1 g/dL Albumin/Globulin Ratio 0.9 (1.0-2.7) L Height (Feet): 5 Height (Inches): 4.00 Weight (Pounds): 177 Medications Current Medications Medications (Trade) Dose Ordered Sig/Ibrahima Route PRN Reason Start Time Stop Time Status Last Admin Dose Admin Acetaminophen (Tylenol) 650 mg Q4H PRN ORAL Fever 07/28/18 15:49 08/27/18 15:48 Albuterol/ Ipratropium (Albuterol/ Ipratropium) 3 ml Q4H PRN HHN Shortness of Breath 07/28/18 15:49 08/02/18 15:48 Apixaban (Eliquis) 5 mg BID ORAL 07/28/18 18:00 08/27/18 17:59 07/28/18 17:24 Dextrose (Dextrose 50%) 25 ml Q30M PRN IV Hypoglycemia 07/28/18 16:15 08/27/18 10:44 Dextrose (Dextrose 50%) 50 ml Q30M PRN IV Hypoglycemia 07/28/18 16:15 08/27/18 10:44 Furosemide (Lasix) 40 mg EVERY 8 HOURS IV 07/28/18 22:00 08/27/18 13:59 07/29/18 13:48 Haloperidol Lactate (Haldol) 5 mg Q6H PRN IM Agitation 07/28/18 16:00 08/27/18 15:48 Ondansetron HCl (Zofran) 4 mg Q6H PRN IVP Nausea & Vomiting 07/28/18 15:49 08/27/18 15:48 Polyethylene Glycol (Miralax) 17 gm DAILYPRN PRN ORAL Constipation 07/28/18 15:49 08/27/18 15:48 Potassium Chloride 100 ml @ 100 mls/hr Q1HR IVPB 07/29/18 12:00 07/29/18 15:59 07/29/18 13:47 Risperidone (RisperDAL) 1 mg BEDTIME ORAL 07/28/18 21:00 08/27/18 20:59 07/28/18 21:04 Temazepam (Restoril) 15 mg HSPRN PRN ORAL Insomnia 07/28/18 15:50 08/04/18 15:49 07/29/18 13:48 Vancomycin HCl (Vanco rx to dose) 1 ea DAILY PRN MISC Per rx protocol 07/29/18 13:00 08/28/18 12:59 Vancomycin HCl 500 mg/Dextrose 110 ml @ 110 mls/hr Q12H IVPB 07/29/18 15:00 08/03/18 14:59 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)- ?r/o PPM infection -07/28 Bcx 07/06 GPC clusters -2d echo: no obvious vegetation Afebrile NO leukocytosis hx of UTI Proteus mirabilis 04/2018 hx of recent probable Legionella Pneumonia, Legionella 04/2018, s/p Rx SP VDRF, 04/10 Sp extubated Legionella Ur Ag: Neg, Legionella IgM + / IgG - Scx: No sig growth Flu screen negative Atrial flutter dCHF COPD CAD s/p stents Hypertension Seizure disorder Schizophrenia Depression History of intraventricular pacemaker implantation GERD CVA/TIA b/l hip replacement hx of L DVT history of alcohol abuse hx of recurrent admissions hx of high grade CONS bacteremia (JIMY neg 09/2017) -also on 05/2018 SNF resident Plan: -Continue empiric IV Vancomycin #1 pending BCx -repeat Bcx x2, ESR, CRP -May need JIMY (given recurrent CONS bacteremia and presence of PPM) -f/u cx -Monitor CBC/CMP, temperatures Thank you for this consultation. Will continue to follow along with you. Discussed with Danica Lacy M.D. Jul 29, 2018 14:38
[2018-07-29] MEDS ORDERED: Vancomycin 500mg/D5W 110ml IVPB SCH ×2 (15:00)
[2018-07-29 16:00] VITALS: BP 126/58
--- NOTE | 2018-07-29 18:00 | NUR ---
NURSE NOTES: DR AGGARWAL MADE AWARE THAT WE COULDN'T GET AN IV ACCESS. GOT AN ORDER FOR PICC LINE. TO SECURE CONSENT. CALLED AND LEFT A MESSAGE. AWAITING FOR CALL BACK. SPOKE WITH DR RAND THAT NO IV ACCESS AND ORDERED TO START ABX PO. ON VENTURI MASK. SATING AT 97%. NO SIGNS OF DISTRESS. WILL CONTINUE TO MONITOR.
--- NOTE | 2018-07-29 18:31 | NUR ---
NURSE NOTES: RESTARINTS DC'D. ABLE TO FOLLOW COMMANDS.. WILL CONTINUE TO MONITOR.
[2018-07-29] MEDS ORDERED: Lidocaine 1% Plain 30 ml INJ PRN (19:15)
[2018-07-29] MEDS ORDERED: Heparin1,000 units/500ml Premix(Conc:2 units/ml) IV PRN (19:15)
--- NOTE | 2018-07-29 19:22 | NUR ---
HAND-OFF: Report given to Wilton Andujar RN.
--- NOTE | 2018-07-29 19:22 | NUR ---
NURSE NOTES: Received report from Jaime Martínez RN. Patient is awake in bed with no s/s of acute distress noted. Saturating well on 14L O2 via venturi mask at 45%. Purewick catheter in place and suctioning well. Left hand 24g IV, intact and patent. Bed locked in lowest position with padded side rails up x3. Call light left within reach. Will continue to monitor.
--- NOTE | 2018-07-29 19:32 | Cardiology Progress Note ---
Assessment/Plan Assessment/Plan 1. Permanent atrial fibrillation/flutter. 2. History of permanent pacemaker implantation, leadless device. 3. COPD. 4. Diastolic heart failure. 5. Bilateral pleural effusion. 6. Pulmonary hypertension. 7. Mild to moderate mitral and aortic valvular disease. 8. Dementia. continue diuretic feel adn looks better not on bipap nwo tele noted labs ntoed cxr "perez improved" agree with continued diuresis oob in chair Subjective Cardiovascular: Denies: chest pain, lightheadedness Respiratory: Denies: shortness of breath Gastrointestinal/Abdominal: Denies: abdominal pain Genitourinary: Denies: burning Objective Last 24 Hour Vital Signs Date Time Temp Pulse Resp B/P (MAP) Pulse Ox O2 Delivery O2 Flow Rate FiO2 07/29/18 19:18 83 18 Venturi Mask 10.0 45 07/29/18 19:18 97 Venturi Mask 10.0 45 07/29/18 19:18 Venturi Mask 10.0 45 07/29/18 16:00 Venturi Mask 14.0 07/29/18 16:00 97.7 75 24 126/58 (80) 98 07/29/18 16:00 80 07/29/18 12:00 98.2 88 22 147/61 (89) 100 07/29/18 12:00 Venturi Mask 14.0 07/29/18 11:35 87 07/29/18 11:27 Venturi Mask 14.0 55 07/29/18 11:26 98 Venturi Mask 14.0 55 07/29/18 09:28 76 16 99 Full Face 40 07/29/18 08:00 79 07/29/18 08:00 Bi-pap 07/29/18 08:00 97.9 70 16 113/59 (77) 100 07/29/18 07:29 74 17 99 Facial 40 07/29/18 05:03 85 19 99 Facial 40 07/29/18 04:00 Bi-pap 07/29/18 04:00 98.5 82 16 127/70 (89) 98 07/29/18 03:35 84 07/29/18 03:31 79 16 99 Full Face 40 07/29/18 01:27 89 21 99 Full Face 40 07/29/18 00:00 Bi-pap 07/29/18 00:00 98.6 73 16 118/71 (87) 100 07/28/18 23:30 80 16 99 Full Face 40 07/28/18 23:30 77 07/28/18 21:03 108 16 98 Facial 40 07/28/18 21:00 Bi-pap 07/28/18 20:00 98.5 94 17 129/77 (94) 98 07/28/18 20:00 88 07/28/18 19:41 110 16 99 Facial 40 General Appearance: no apparent distress, alert Neck: supple Cardiovascular: irregularly irregular Respiratory/Chest: decreased breath sounds Abdomen: normal bowel sounds, non tender, soft Extremities: no swelling Intake and Output 07/28/18 07/29/18 18:59 06:59 Output Total 850 ml Balance -850 ml Output Urine Total 850 ml # Voids 4 # Bowel Movements 1 2 Laboratory Tests Test 07/29/18 05:05 White Blood Count 6.6 K/UL (4.8-10.8) Red Blood Count 3.51 M/UL (4.20-5.40) L Hemoglobin 9.3 G/DL (12.0-16.0) L Hematocrit 29.7 % (37.0-47.0) L Mean Corpuscular Volume 85 FL (80-99) Mean Corpuscular Hemoglobin 26.4 PG (27.0-31.0) L Mean Corpuscular Hemoglobin Concent 31.2 G/DL (32.0-36.0) L Red Cell Distribution Width 17.7 % (11.6-14.8) H Platelet Count 164 K/UL (150-450) Mean Platelet Volume 6.4 FL (6.5-10.1) L Neutrophils (%) (Auto) 77.3 % (45.0-75.0) H Lymphocytes (%) (Auto) 10.7 % (20.0-45.0) L Monocytes (%) (Auto) 9.4 % (1.0-10.0) Eosinophils (%) (Auto) 1.4 % (0.0-3.0) Basophils (%) (Auto) 1.3 % (0.0-2.0) Sodium Level 136 MMOL/L (136-145) Potassium Level 3.4 MMOL/L (3.5-5.1) L Chloride Level 92 MMOL/L (98-107) L Carbon Dioxide Level 44 MMOL/L (21-32) *H Anion Gap 0 mmol/L (5-15) L Blood Urea Nitrogen 8 mg/dL (7-18) Creatinine 0.5 MG/DL (0.55-1.30) L Estimat Glomerular Filtration Rate mL/min (>60) Glucose Level 84 MG/DL (74-106) Calcium Level 8.8 MG/DL (8.5-10.1) Phosphorus Level 3.3 MG/DL (2.5-4.9) Total Bilirubin 0.5 MG/DL (0.2-1.0) Aspartate Amino Transf (AST/SGOT) 11 U/L (15-37) L Alanine Aminotransferase (ALT/SGPT) 19 U/L (12-78) Alkaline Phosphatase 57 U/L (46-116) Troponin I 0.005 ng/mL (0.000-0.056) Pro-B-Type Natriuretic Peptide 3480 pg/mL (0-125) H Total Protein 5.9 G/DL (6.4-8.2) L Albumin 2.8 G/DL (3.4-5.0) L Globulin 3.1 g/dL Albumin/Globulin Ratio 0.9 (1.0-2.7) L Microbiology Date/Time Source Procedure Growth Status 07/28/18 06:50 Blood Blood Culture - Preliminary Resulted 07/28/18 06:36 Blood Blood Culture - Preliminary Resulted 07/28/18 02:50 Rectum Received Akbar Reno MD Jul 29, 2018 19:32
--- NOTE | 2018-07-29 19:45 | NUR ---
NURSE NOTES: Left message with primary contact regarding consent for patient PICC line placement. Awaiting response.
[2018-07-29 20:00] VITALS: BP 138/65
[2018-07-29] MEDS ORDERED: Dyna-Hex 2% Top Sol 2oz TOPIC SCH (20:00)
[2018-07-29] MEDS: Vancomycin 500mg/D5W 110ml IVPB SCH ×2 (20:26)
[2018-07-30] VITALS: BP 131/64
[2018-07-30 04:00] VITALS: BP 124/59
[2018-07-30 05:04] LABS: BASOPHILS % (AUTO) 1.2 % (0.0-2.0); EOSINOPHILS % (AUTO) 2.3 % (0.0-3.0); HEMATOCRIT 31.5 % (37.0-47.0); HEMOGLOBIN 9.8 G/DL (12.0-16.0); MEAN CORPUSCULAR VOLUME 86 FL (80-99); MONOCYTES % (AUTO) 8.2 % (1.0-10.0); NEUTROPHILS % (AUTO) 77.2 % (45.0-75.0); PLATELET COUNT 146 K/UL (150-450); RED BLOOD COUNT 3.68 M/UL (4.20-5.40); RED CELL DISTRIBUTION WIDTH 18.3 % (11.6-14.8); WHITE BLOOD COUNT 7.4 K/UL (4.8-10.8)
[2018-07-30 05:26] LABS: ALANINE AMINOTRANSFERASE 15 U/L (12-78); ALBUMIN 2.8 G/DL (3.4-5.0); ALBUMIN/GLOBULIN RATIO 0.9 (1.0-2.7); ALKALINE PHOSPHATASE 56 U/L (46-116); ANION GAP -1 mmol/L (5-15); ASPARTATE AMINO TRANSFERASE 15 U/L (15-37); BILIRUBIN,TOTAL 0.5 MG/DL (0.2-1.0); BLOOD UREA NITROGEN 8 mg/dL (7-18); CALCIUM 8.9 MG/DL (8.5-10.1); CHLORIDE 95 MMOL/L (98-107); CREATININE 0.5 MG/DL (0.55-1.30); POTASSIUM 3.4 MMOL/L (3.5-5.1); SODIUM 139 MMOL/L (136-145)
[2018-07-30 05:32] LABS: CARBON DIOXIDE > 45 MMOL/L (21-32)
--- NOTE | 2018-07-30 05:41 | NUR ---
NURSE NOTES: Left message for Dr. Rigo MD regarding CO2 and potassium levels. Awaiting response.
--- NOTE | 2018-07-30 07:06 | NUR ---
HAND-OFF: Report given to Jaime Martínez RN.
--- NOTE | 2018-07-30 07:07 | NUR ---
NURSE NOTES: RECEIVED PATIENT FROM Wilton STUBBS RN. PATIENT IS LYING IN BED, ASLEEP. HOOKED TO S[employer] SUPERVISOR. ON VENTURI MASK 14L, FIO2 45%. NO SIGNS OF DISTRESS. ON PUREWICK. IV ON L HAND, G24 SL. SIDE RAILS PADDED. BED AT LOWEST POSITION. SIDE RAILS. CALL LIGHT WITHIN REACH. WILL CONTINUE TO MONITOR.
[2018-07-30 08:00] VITALS: BP 131/56
[2018-07-30] MEDS: Vancomycin 500mg/D5W 110ml IVPB SCH ×4 (09:41→20:57)
[2018-07-30] MEDS: Eliquis 2.5mg tablet ORAL SCH ×2 (09:41→17:17)
--- NOTE | 2018-07-30 09:55 | Pulmonology Progress Note ---
Assessment/Plan Problems: (1) Respiratory failure, acute (2) Acute diastolic CHF (congestive heart failure) (3) Pulmonary edema (4) Atrial flutter (5) CAD (coronary artery disease) (6) Pacemaker (7) Major depression (8) Wheelchair bound (9) Paranoid schizophrenia Assessment/Plan off BIPAP continue diuretics check electrolytes K supplement all reviewed continue antidepressant echo reviewed check CXR and BNP in am, all improving decrease lasix once the bun/creatinine started to rise. dvt prophylaxis. Subjective ROS Limited/Unobtainable: Yes Interval Events: doing better, on face mask Allergies: Coded Allergies: PIPERACILLIN (Unverified Allergy, Unknown, 05/21/18) tolerates cephalosporins TAZOBACTAM (Unverified Allergy, Unknown, 03/10/18) Objective Last 24 Hour Vital Signs Date Time Temp Pulse Resp B/P (MAP) Pulse Ox O2 Delivery O2 Flow Rate FiO2 07/30/18 08:00 97.7 89 18 131/56 (81) 95 07/30/18 07:10 95 Venturi Mask 10.0 45 07/30/18 07:10 84 17 Venturi Mask 10.0 45 07/30/18 07:10 Venturi Mask 10.0 45 07/30/18 04:30 86 07/30/18 04:00 Venturi Mask 14.0 07/30/18 04:00 97.7 86 20 124/59 (80) 94 07/30/18 00:00 Venturi Mask 14.0 07/30/18 00:00 97.7 68 24 131/64 (86) 94 07/29/18 23:30 79 07/29/18 20:00 97.4 86 24 138/65 (89) 94 07/29/18 20:00 Venturi Mask 14.0 07/29/18 19:18 83 18 Venturi Mask 10.0 45 07/29/18 19:18 97 Venturi Mask 10.0 45 07/29/18 19:18 Venturi Mask 10.0 45 07/29/18 19:02 81 07/29/18 16:00 Venturi Mask 14.0 07/29/18 16:00 97.7 75 24 126/58 (80) 98 07/29/18 16:00 80 07/29/18 12:00 98.2 88 22 147/61 (89) 100 07/29/18 12:00 Venturi Mask 14.0 07/29/18 11:35 87 07/29/18 11:27 Venturi Mask 14.0 55 07/29/18 11:26 98 Venturi Mask 14.0 55 Intake and Output 07/29/18 07/30/18 19:00 07:00 Intake Total 215 ml 140 ml Output Total 900 ml 800 ml Balance -685 ml -660 ml Intake Oral 100 ml 140 ml IV Total 115 ml Output Urine Total 900 ml 800 ml General Appearance: WD/WN HEENT: atraumatic Respiratory/Chest: crackles/rales, rhonchi Breasts: no masses Cardiovascular: normal peripheral pulses, normal rate Abdomen: normal bowel sounds, soft, non tender Genitourinary: normal external genitalia Extremities: no cyanosis Skin: no ulcers Neurologic/Psychiatric: no motor/sensory deficits Lymphatic: no neck adenopathy Musculoskeletal: normal muscle bulk Microbiology Date/Time Source Procedure Growth Status 07/28/18 06:50 Blood Blood Culture - Preliminary Staphylococcus Sp Coag Neg Resulted 07/28/18 06:36 Blood Blood Culture - Preliminary Staphylococcus Sp Coag Neg Resulted 07/28/18 02:50 Nasal Nares MRSA Culture - Final NO METHICILLIN RESISTANT STAPH AUREUS... Complete 07/28/18 02:50 Rectum VRE Culture - Final Enterococcus Faecalis - Vre Complete 07/28/18 02:50 Rectum - Final NO CARBAPENEM-RESISTANT ENTEROBACTERI... Complete Laboratory Tests 07/30/18 03:40: White Blood Count 7.4, Red Blood Count 3.68L, Hemoglobin 9.8L, Hematocrit 31.5L , Mean Corpuscular Volume 86, Mean Corpuscular Hemoglobin 26.6L, Mean Corpuscular Hemoglobin Concent 31.1L, Red Cell Distribution Width 18.3H, Platelet Count 146L, Mean Platelet Volume 7.1, Neutrophils (%) (Auto) 77.2H, Lymphocytes (%) (Auto) 11.0L, Monocytes (%) (Auto) 8.2, Eosinophils (%) (Auto) 2.3, Basophils (%) (Auto) 1.2, Erythrocyte Sedimentation Rate 24, Sodium Level 139, Potassium Level 3.4L, Chloride Level 95L, Carbon Dioxide Level > 45*H, Anion Gap -1L, Blood Urea Nitrogen 8, Creatinine 0.5L, Estimat Glomerular Filtration Rate , Glucose Level 79, Calcium Level 8.9, Total Bilirubin 0.5, Aspartate Amino Transf (AST/SGOT) 15, Alanine Aminotransferase (ALT/SGPT) 15, Alkaline Phosphatase 56, Troponin I 0.000, C-Reactive Protein, Quantitative 5.8H , Pro-B-Type Natriuretic Peptide 1817H, Total Protein 5.9L, Albumin 2.8L, Globulin 3.1, Albumin/Globulin Ratio 0.9L Current Medications Medications (Trade) Dose Ordered Sig/Ibrahima Route PRN Reason Start Time Stop Time Status Last Admin Dose Admin Acetaminophen (Tylenol) 650 mg Q4H PRN ORAL Fever 07/28/18 15:49 08/27/18 15:48 Albuterol/ Ipratropium (Albuterol/ Ipratropium) 3 ml Q4H PRN HHN Shortness of Breath 07/28/18 15:49 08/02/18 15:48 Apixaban (Eliquis) 5 mg BID ORAL 07/28/18 18:00 08/27/18 17:59 07/30/18 09:41 Chlorhexidine Gluconate (Emerita-Hex 2%) 1 applic DAILY@2000 TOPIC 07/29/18 20:00 08/28/18 19:59 07/29/18 20:24 Dextrose (Dextrose 50%) 25 ml Q30M PRN IV Hypoglycemia 07/28/18 16:15 08/27/18 10:44 Dextrose (Dextrose 50%) 50 ml Q30M PRN IV Hypoglycemia 07/28/18 16:15 08/27/18 10:44 Furosemide (Lasix) 40 mg EVERY 8 HOURS IV 07/28/18 22:00 08/27/18 13:59 07/30/18 05:32 Haloperidol Lactate (Haldol) 5 mg Q6H PRN IM Agitation 07/28/18 16:00 08/27/18 15:48 Heparin Sodium/ Sodium Chloride (Heparin 1000 units/500ml Premix) 1,000 unit ONCE PRN IV PICC 07/29/18 19:15 07/30/18 19:14 Lidocaine HCl (Xylocaine 1% 30ml) 30 ml ONCE PRN INJ picc 07/29/18 19:15 07/30/18 19:14 Ondansetron HCl (Zofran) 4 mg Q6H PRN IVP Nausea & Vomiting 2/26/19 15:49 08/27/18 15:48 Polyethylene Glycol (Miralax) 17 gm DAILYPRN PRN ORAL Constipation 07/28/18 15:49 08/27/18 15:48 Risperidone (RisperDAL) 1 mg BEDTIME ORAL 07/28/18 21:00 08/27/18 20:59 07/29/18 20:24 Temazepam (Restoril) 15 mg HSPRN PRN ORAL Insomnia 07/28/18 15:50 08/04/18 15:49 07/29/18 13:48 Vancomycin HCl (Vanco rx to dose) 1 ea DAILY PRN MISC Per rx protocol 07/29/18 13:00 08/28/18 12:59 Vancomycin HCl 500 mg/Dextrose 110 ml @ 110 mls/hr Q12H IVPB 07/29/18 20:00 08/03/18 19:59 07/30/18 09:41 Mendel Sierra MD Jul 30, 2018 09:55
--- NOTE | 2018-07-30 10:21 | Diagnostic Imaging Report ---
Indication: Dyspnea Technique: One view of the chest Comparison: 07/29/2018 Findings: Left hemidiaphragm remains obscured. Mild interstitial congestion appears slightly worse than on the previous study. The heart remains enlarged. Impression: Persistent left pleural effusion Slightly increased interstitial congestion, over one day
--- NOTE | 2018-07-30 10:46 | NUR ---
RADIOLOGY DEPT CHEST X-RAY DONE.-P.DYE
--- NOTE | 2018-07-30 10:47 | NUR ---
NURSE NOTES: SEEN BY DR AGGARWAL. WITH NEW ORDERS MADE. TOLERATED VENTURI MASK. WILL CONTINUE TO MONITOR.
--- NOTE | 2018-07-30 11:36 | General Progress Note ---
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 (2) Dementia ICD Codes: F03.90 - Dementia SNOMED: 99358281 (3) Paranoid schizophrenia ICD Codes: F20.0 - Paranoid schizophrenia SNOMED: 87075940 Status: stable Assessment/Plan Haldol 5mg q 6hr prn agitation Risperdal 1mg po qhs The pt lacks capacity to make decision Subjective Neurologic/Psychiatric: Reports: anxiety Allergies: Coded Allergies: PIPERACILLIN (Unverified Allergy, Unknown, 05/21/18) tolerates cephalosporins TAZOBACTAM (Unverified Allergy, Unknown, 03/10/18) Subjective the pt was more alert and interactive the pt is not restraints and more cooperative Objective Last 24 Hour Vital Signs Date Time Temp Pulse Resp B/P (MAP) Pulse Ox O2 Delivery O2 Flow Rate FiO2 07/30/18 08:00 97.7 89 18 131/56 (81) 95 07/30/18 08:00 Venturi Mask 14.0 07/30/18 08:00 82 07/30/18 07:10 95 Venturi Mask 10.0 45 07/30/18 07:10 84 17 Venturi Mask 10.0 45 07/30/18 07:10 Venturi Mask 10.0 45 07/30/18 04:30 86 07/30/18 04:00 Venturi Mask 14.0 07/30/18 04:00 97.7 86 20 124/59 (80) 94 07/30/18 00:00 Venturi Mask 14.0 07/30/18 00:00 97.7 68 24 131/64 (86) 94 07/29/18 23:30 79 07/29/18 20:00 97.4 86 24 138/65 (89) 94 07/29/18 20:00 Venturi Mask 14.0 07/29/18 19:18 83 18 Venturi Mask 10.0 45 07/29/18 19:18 97 Venturi Mask 10.0 45 07/29/18 19:18 Venturi Mask 10.0 45 07/29/18 19:02 81 07/29/18 16:00 Venturi Mask 14.0 07/29/18 16:00 97.7 75 24 126/58 (80) 98 07/29/18 16:00 80 07/29/18 12:00 98.2 88 22 147/61 (89) 100 07/29/18 12:00 Venturi Mask 14.0 Intake and Output 07/29/18 07/30/18 19:00 07:00 Intake Total 215 ml 140 ml Output Total 900 ml 800 ml Balance -685 ml -660 ml Intake Oral 100 ml 140 ml IV Total 115 ml Output Urine Total 900 ml 800 ml Laboratory Tests 07/30/18 03:40: White Blood Count 7.4, Red Blood Count 3.68L, Hemoglobin 9.8L, Hematocrit 31.5L , Mean Corpuscular Volume 86, Mean Corpuscular Hemoglobin 26.6L, Mean Corpuscular Hemoglobin Concent 31.1L, Red Cell Distribution Width 18.3H, Platelet Count 146L, Mean Platelet Volume 7.1, Neutrophils (%) (Auto) 77.2H, Lymphocytes (%) (Auto) 11.0L, Monocytes (%) (Auto) 8.2, Eosinophils (%) (Auto) 2.3, Basophils (%) (Auto) 1.2, Erythrocyte Sedimentation Rate 24, Sodium Level 139, Potassium Level 3.4L, Chloride Level 95L, Carbon Dioxide Level > 45*H, Anion Gap -1L, Blood Urea Nitrogen 8, Creatinine 0.5L, Estimat Glomerular Filtration Rate , Glucose Level 79, Calcium Level 8.9, Total Bilirubin 0.5, Aspartate Amino Transf (AST/SGOT) 15, Alanine Aminotransferase (ALT/SGPT) 15, Alkaline Phosphatase 56, Troponin I 0.000, C-Reactive Protein, Quantitative 5.8H , Pro-B-Type Natriuretic Peptide 1817H, Total Protein 5.9L, Albumin 2.8L, Globulin 3.1, Albumin/Globulin Ratio 0.9L Height (Feet): 5 Height (Inches): 4.00 Weight (Pounds): 177 General Appearance: no apparent distress, alert, agitated, obese Luiz Morrison MD Jul 30, 2018 11:36
--- NOTE | 2018-07-30 11:59 | Diagnostic Imaging Report ---
APPROVED REPORT CPT Code: 35231 Present Symptoms Comments: BILATERAL LEGS PAIN. BILATERAL: Imaging reveals a patent deep venous system bilaterally. There is no evidence of thrombus within the femoral, popliteal or tibial segments. The greater saphenous veins are also within normal limits. Doppler indicates normal spontaneous flow within these segments.
[2018-07-30 12:00] VITALS: BP 129/92
[2018-07-30 16:00] VITALS: BP 133/65
--- NOTE | 2018-07-30 16:18 | Infectious Diseases Prog Note ---
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, s/p Rx SP VDRF, 04/10 Sp extubated Legionella Ur Ag: Neg, Legionella IgM + / IgG - Scx: No sig growth Flu screen negative Atrial flutter dCHF COPD CAD s/p stents Hypertension Seizure disorder Schizophrenia Depression History of intraventricular pacemaker implantation GERD CVA/TIA b/l hip replacement hx of L DVT history of alcohol abuse hx of recurrent admissions hx of high grade CONS bacteremia (JIMY neg 09/2017) -also on 05/2018 [facility] resident Plan: -Continue empiric IV Vancomycin #2 pending BCx -f/u repeat Bcx x2 -May need JIMY (given recurrent CONS bacteremia and presence of PPM) -f/u cx -Monitor CBC/CMP, temperatures Thank you for this consultation. Will continue to follow along with you. Discussed with RN. Subjective Allergies: Coded Allergies: PIPERACILLIN (Unverified Allergy, Unknown, 05/21/18) tolerates cephalosporins TAZOBACTAM (Unverified Allergy, Unknown, 03/10/18) Subjective afebrile no leukocytosis repeat Bcx p Objective Vital Signs Last 24 Hour Vital Signs Date Time Temp Pulse Resp B/P (MAP) Pulse Ox O2 Delivery O2 Flow Rate FiO2 07/30/18 16:00 Venturi Mask 14.0 07/30/18 12:00 91 07/30/18 12:00 97.2 88 20 129/92 (104) 97 07/30/18 12:00 Venturi Mask 14.0 07/30/18 08:00 97.7 89 18 131/56 (81) 95 07/30/18 08:00 Venturi Mask 14.0 07/30/18 08:00 82 07/30/18 07:10 95 Venturi Mask 10.0 45 07/30/18 07:10 84 17 Venturi Mask 10.0 45 07/30/18 07:10 Venturi Mask 10.0 45 07/30/18 04:30 86 07/30/18 04:00 Venturi Mask 14.0 07/30/18 04:00 97.7 86 20 124/59 (80) 94 07/30/18 00:00 Venturi Mask 14.0 07/30/18 00:00 97.7 68 24 131/64 (86) 94 07/29/18 23:30 79 07/29/18 20:00 97.4 86 24 138/65 (89) 94 07/29/18 20:00 Venturi Mask 14.0 07/29/18 19:18 83 18 Venturi Mask 10.0 45 07/29/18 19:18 97 Venturi Mask 10.0 45 07/29/18 19:18 Venturi Mask 10.0 45 07/29/18 19:02 81 Height (Feet): 5 Height (Inches): 4.00 Weight (Pounds): 177 Objective GENERAL: The patient is a well-developed and well-nourished white female, in no apparent distress. HEENT: Eyes, pupils are equal and responsive to light and accommodation. Extraocular movements are intact. NECK: Supple without lymphadenopathy. CHEST: Lungs are clear to auscultation bilaterally without wheezes or rales. CARDIOVASCULAR: Regular rate, S1 and S2 normal without murmurs, rubs, or gallops. ABDOMEN: Soft, nontender, and nondistended. Positive bowel sounds. No evidence of hepatosplenomegaly. Currently, no rebound or guarding noted. EXTREMITIES: Negative for clubbing, cyanosis, or edema. Microbiology Date/Time Source Procedure Growth Status 07/28/18 06:50 Blood Blood Culture - Preliminary Staphylococcus Sp Coag Neg Resulted 07/28/18 06:36 Blood Blood Culture - Preliminary Staphylococcus Sp Coag Neg Resulted 07/28/18 02:50 Nasal Nares MRSA Culture - Final NO METHICILLIN RESISTANT STAPH AUREUS... Complete 07/28/18 02:50 Rectum VRE Culture - Final Enterococcus Faecalis - Vre Complete 07/28/18 02:50 Rectum - Final NO CARBAPENEM-RESISTANT ENTEROBACTERI... Complete Laboratory Tests Test 07/30/18 03:40 White Blood Count 7.4 K/UL (4.8-10.8) Red Blood Count 3.68 M/UL (4.20-5.40) L Hemoglobin 9.8 G/DL (12.0-16.0) L Hematocrit 31.5 % (37.0-47.0) L Mean Corpuscular Volume 86 FL (80-99) Mean Corpuscular Hemoglobin 26.6 PG (27.0-31.0) L Mean Corpuscular Hemoglobin Concent 31.1 G/DL (32.0-36.0) L Red Cell Distribution Width 18.3 % (11.6-14.8) H Platelet Count 146 K/UL (150-450) L Mean Platelet Volume 7.1 FL (6.5-10.1) Neutrophils (%) (Auto) 77.2 % (45.0-75.0) H Lymphocytes (%) (Auto) 11.0 % (20.0-45.0) L Monocytes (%) (Auto) 8.2 % (1.0-10.0) Eosinophils (%) (Auto) 2.3 % (0.0-3.0) Basophils (%) (Auto) 1.2 % (0.0-2.0) Erythrocyte Sedimentation Rate 24 MM/HR (0-30) Sodium Level 139 MMOL/L (136-145) Potassium Level 3.4 MMOL/L (3.5-5.1) L Chloride Level 95 MMOL/L (98-107) L Carbon Dioxide Level > 45 MMOL/L (21-32) *H Anion Gap -1 mmol/L (5-15) L Blood Urea Nitrogen 8 mg/dL (7-18) Creatinine 0.5 MG/DL (0.55-1.30) L Estimat Glomerular Filtration Rate mL/min (>60) Glucose Level 79 MG/DL (74-106) Calcium Level 8.9 MG/DL (8.5-10.1) Total Bilirubin 0.5 MG/DL (0.2-1.0) Aspartate Amino Transf (AST/SGOT) 15 U/L (15-37) Alanine Aminotransferase (ALT/SGPT) 15 U/L (12-78) Alkaline Phosphatase 56 U/L (46-116) Troponin I 0.000 ng/mL (0.000-0.056) C-Reactive Protein, Quantitative 5.8 mg/dL (0.00-0.90) H Pro-B-Type Natriuretic Peptide 1817 pg/mL (0-125) H Total Protein 5.9 G/DL (6.4-8.2) L Albumin 2.8 G/DL (3.4-5.0) L Globulin 3.1 g/dL Albumin/Globulin Ratio 0.9 (1.0-2.7) L Current Medications Medications (Trade) Dose Ordered Sig/Ibrahima Route PRN Reason Start Time Stop Time Status Last Admin Dose Admin Acetaminophen (Tylenol) 650 mg Q4H PRN ORAL Fever 07/28/18 15:49 08/27/18 15:48 Albuterol/ Ipratropium (Albuterol/ Ipratropium) 3 ml Q4H PRN HHN Shortness of Breath 07/28/18 15:49 08/02/18 15:48 Apixaban (Eliquis) 5 mg BID ORAL 07/28/18 18:00 08/27/18 17:59 07/30/18 09:41 Dextrose (Dextrose 50%) 25 ml Q30M PRN IV Hypoglycemia 07/28/18 16:15 08/27/18 10:44 Dextrose (Dextrose 50%) 50 ml Q30M PRN IV Hypoglycemia 07/28/18 16:15 08/27/18 10:44 Furosemide (Lasix) 40 mg EVERY 8 HOURS IV 07/28/18 22:00 08/27/18 13:59 07/30/18 13:00 Haloperidol Lactate (Haldol) 5 mg Q6H PRN IM Agitation 07/28/18 16:00 08/27/18 15:48 Ondansetron HCl (Zofran) 4 mg Q6H PRN IVP Nausea & Vomiting 07/28/18 15:49 08/27/18 15:48 Polyethylene Glycol (Miralax) 17 gm DAILYPRN PRN ORAL Constipation 07/28/18 15:49 08/27/18 15:48 Risperidone (RisperDAL) 1 mg BEDTIME ORAL 07/28/18 21:00 08/27/18 20:59 07/29/18 20:24 Temazepam (Restoril) 15 mg HSPRN PRN ORAL Insomnia 07/28/18 15:50 08/04/18 15:49 07/29/18 13:48 Vancomycin HCl (Vanco rx to dose) 1 ea DAILY PRN MISC Per rx protocol 07/29/18 13:00 08/28/18 12:59 Vancomycin HCl 500 mg/Dextrose 110 ml @ 110 mls/hr Q12H IVPB 07/29/18 20:00 08/03/18 19:59 07/30/18 09:41 Danica Nayak M.D. Jul 30, 2018 16:17
--- NOTE | 2018-07-30 17:19 | Internal Med Progress Note ---
Subjective Date of Service: Jul 30, 2018 Physician Name DuttaJuan Attending Physician Yonathan Mendoza MD Current Medications Medications (Trade) Dose Ordered Sig/Ibrahima Route PRN Reason Start Time Stop Time Status Last Admin Dose Admin Acetaminophen (Tylenol) 650 mg Q4H PRN ORAL Fever 07/28/18 15:49 08/27/18 15:48 Albuterol/ Ipratropium (Albuterol/ Ipratropium) 3 ml Q4H PRN HHN Shortness of Breath 07/28/18 15:49 08/02/18 15:48 Apixaban (Eliquis) 5 mg BID ORAL 07/28/18 18:00 08/27/18 17:59 07/30/18 17:17 Dextrose (Dextrose 50%) 25 ml Q30M PRN IV Hypoglycemia 07/28/18 16:15 08/27/18 10:44 Dextrose (Dextrose 50%) 50 ml Q30M PRN IV Hypoglycemia 07/28/18 16:15 08/27/18 10:44 Furosemide (Lasix) 40 mg EVERY 8 HOURS IV 07/28/18 22:00 08/27/18 13:59 07/30/18 13:00 Haloperidol Lactate (Haldol) 5 mg Q6H PRN IM Agitation 07/28/18 16:00 08/27/18 15:48 Ondansetron HCl (Zofran) 4 mg Q6H PRN IVP Nausea & Vomiting 07/28/18 15:49 08/27/18 15:48 Polyethylene Glycol (Miralax) 17 gm DAILYPRN PRN ORAL Constipation 07/28/18 15:49 08/27/18 15:48 Risperidone (RisperDAL) 1 mg BEDTIME ORAL 07/28/18 21:00 08/27/18 20:59 07/29/18 20:24 Temazepam (Restoril) 15 mg HSPRN PRN ORAL Insomnia 07/28/18 15:50 08/04/18 15:49 07/29/18 13:48 Vancomycin HCl (Vanco rx to dose) 1 ea DAILY PRN MISC Per rx protocol 07/29/18 13:00 08/28/18 12:59 Vancomycin HCl 500 mg/Dextrose 110 ml @ 110 mls/hr Q12H IVPB 07/29/18 20:00 08/03/18 19:59 07/30/18 09:41 Allergies: Coded Allergies: PIPERACILLIN (Unverified Allergy, Unknown, 05/21/18) tolerates cephalosporins TAZOBACTAM (Unverified Allergy, Unknown, 03/10/18) ROS Limited/Unobtainable: Yes Subjective 77 YO F admitted with hypoxia and altered mental status. Now sepsis. Cover for Int Jose A-Dr Mendoza. CHRISTOPHER. Tolerating venturi mask. Objective Last Vital Signs Date Time Temp Pulse Resp B/P (MAP) Pulse Ox O2 Delivery O2 Flow Rate FiO2 07/30/18 16:00 Venturi Mask 14.0 07/30/18 12:00 91 07/30/18 12:00 97.2 20 129/92 (104) 97 07/30/18 07:10 45 Laboratory Tests Test 07/30/18 03:40 White Blood Count 7.4 K/UL (4.8-10.8) Red Blood Count 3.68 M/UL (4.20-5.40) L Hemoglobin 9.8 G/DL (12.0-16.0) L Hematocrit 31.5 % (37.0-47.0) L Mean Corpuscular Volume 86 FL (80-99) Mean Corpuscular Hemoglobin 26.6 PG (27.0-31.0) L Mean Corpuscular Hemoglobin Concent 31.1 G/DL (32.0-36.0) L Red Cell Distribution Width 18.3 % (11.6-14.8) H Platelet Count 146 K/UL (150-450) L Mean Platelet Volume 7.1 FL (6.5-10.1) Neutrophils (%) (Auto) 77.2 % (45.0-75.0) H Lymphocytes (%) (Auto) 11.0 % (20.0-45.0) L Monocytes (%) (Auto) 8.2 % (1.0-10.0) Eosinophils (%) (Auto) 2.3 % (0.0-3.0) Basophils (%) (Auto) 1.2 % (0.0-2.0) Erythrocyte Sedimentation Rate 24 MM/HR (0-30) Sodium Level 139 MMOL/L (136-145) Potassium Level 3.4 MMOL/L (3.5-5.1) L Chloride Level 95 MMOL/L (98-107) L Carbon Dioxide Level > 45 MMOL/L (21-32) *H Anion Gap -1 mmol/L (5-15) L Blood Urea Nitrogen 8 mg/dL (7-18) Creatinine 0.5 MG/DL (0.55-1.30) L Estimat Glomerular Filtration Rate mL/min (>60) Glucose Level 79 MG/DL (74-106) Calcium Level 8.9 MG/DL (8.5-10.1) Total Bilirubin 0.5 MG/DL (0.2-1.0) Aspartate Amino Transf (AST/SGOT) 15 U/L (15-37) Alanine Aminotransferase (ALT/SGPT) 15 U/L (12-78) Alkaline Phosphatase 56 U/L (46-116) Troponin I 0.000 ng/mL (0.000-0.056) C-Reactive Protein, Quantitative 5.8 mg/dL (0.00-0.90) H Pro-B-Type Natriuretic Peptide 1817 pg/mL (0-125) H Total Protein 5.9 G/DL (6.4-8.2) L Albumin 2.8 G/DL (3.4-5.0) L Globulin 3.1 g/dL Albumin/Globulin Ratio 0.9 (1.0-2.7) L Microbiology Date/Time Source Procedure Growth Status 07/28/18 06:50 Blood Blood Culture - Preliminary Staphylococcus Sp Coag Neg Resulted 07/28/18 06:36 Blood Blood Culture - Preliminary Staphylococcus Sp Coag Neg Resulted 07/28/18 02:50 Nasal Nares MRSA Culture - Final NO METHICILLIN RESISTANT STAPH AUREUS... Complete 07/28/18 02:50 Rectum VRE Culture - Final Enterococcus Faecalis - Vre Complete 07/28/18 02:50 Rectum - Final NO CARBAPENEM-RESISTANT ENTEROBACTERI... Complete Intake and Output 07/29/18 07/30/18 19:00 07:00 Intake Total 215 ml 140 ml Output Total 900 ml 800 ml Balance -685 ml -660 ml Intake Oral 100 ml 140 ml IV Total 115 ml Output Urine Total 900 ml 800 ml Objective PHYSICAL EXAMINATION: GENERAL: The patient is a well-developed and well-nourished white female, in no apparent distress. HEENT: Eyes, pupils are equal and responsive to light and accommodation. Extraocular movements are intact. NECK: Supple without lymphadenopathy. CHEST: Venturi mask; Lungs are clear to auscultation bilaterally without wheezes or rales. CARDIOVASCULAR: Regular rate, S1 and S2 normal without murmurs, rubs, or gallops. ABDOMEN: Soft, nontender, and nondistended. Positive bowel sounds. No evidence of hepatosplenomegaly. Currently, no rebound or guarding noted. EXTREMITIES: Negative for clubbing, cyanosis, or edema. RECTAL/GENITAL: Refused. NEUROLOGIC: Cranial nerves II through XII are grossly intact without focal deficits. Motor strength is 5/5 bilaterally. Deep tendon reflexes are 2+ plantar. Assessment/Plan Problem List: (1) CHF (congestive heart failure) Assessment & Plan: See cardiology note. (2) Altered mental status (3) Hypoxia (4) Respiratory distress Assessment & Plan: On venturi mask. See pulmonary note. (5) Sepsis Assessment & Plan: Coag neg staph. See ID consult-continue vanco. (6) Atrial flutter Assessment & Plan: Continue eliquis (7) HTN (hypertension) (8) COPD (chronic obstructive pulmonary disease) (9) Pacemaker (10) Paranoid schizophrenia (11) Seizure disorder (12) CAD (coronary artery disease) Juan Dutta MD Jul 30, 2018 17:19
--- NOTE | 2018-07-30 19:18 | NUR ---
HAND-OFF: Report given to Suzy Sebastian RN.
--- NOTE | 2018-07-30 19:40 | Cardiology Progress Note ---
Assessment/Plan Assessment/Plan 1. Permanent atrial fibrillation/flutter. 2. History of permanent pacemaker implantation, leadless device. 3. COPD. 4. Diastolic heart failure. 5. Bilateral pleural effusion. 6. Pulmonary hypertension. 7. Mild to moderate mitral and aortic valvular disease. 8. Dementia. 9. bacteremia feel adn looks better not on bipap nwo tele noted labs ntoed agree with continued diuresis oob in chair bl;ood cx noted id noted iv abx hhn Subjective Cardiovascular: Denies: chest pain, lightheadedness Respiratory: Reports: cough; Denies: shortness of breath Gastrointestinal/Abdominal: Denies: abdominal pain Genitourinary: Denies: burning Objective Last 24 Hour Vital Signs Date Time Temp Pulse Resp B/P (MAP) Pulse Ox O2 Delivery O2 Flow Rate FiO2 07/30/18 19:16 Nasal Cannula 4.0 36 07/30/18 19:16 97 Nasal Cannula 4.0 36 07/30/18 19:15 89 18 Nasal Cannula 4.0 36 07/30/18 16:00 Venturi Mask 14.0 07/30/18 16:00 98.2 88 20 133/65 (87) 98 07/30/18 16:00 89 07/30/18 12:00 91 07/30/18 12:00 97.2 88 20 129/92 (104) 97 07/30/18 12:00 Venturi Mask 14.0 07/30/18 08:00 97.7 89 18 131/56 (81) 95 07/30/18 08:00 Venturi Mask 14.0 07/30/18 08:00 82 07/30/18 07:10 95 Venturi Mask 10.0 45 07/30/18 07:10 84 17 Venturi Mask 10.0 45 07/30/18 07:10 Venturi Mask 10.0 45 07/30/18 04:30 86 07/30/18 04:00 Venturi Mask 14.0 07/30/18 04:00 97.7 86 20 124/59 (80) 94 07/30/18 00:00 Venturi Mask 14.0 07/30/18 00:00 97.7 68 24 131/64 (86) 94 07/29/18 23:30 79 07/29/18 20:00 97.4 86 24 138/65 (89) 94 07/29/18 20:00 Venturi Mask 14.0 General Appearance: no apparent distress, alert Neck: no JVD Cardiovascular: irregularly irregular Respiratory/Chest: decreased breath sounds, expiratory wheezing Abdomen: normal bowel sounds, non tender, soft Extremities: no swelling Intake and Output 07/29/18 07/30/18 19:00 07:00 Intake Total 215 ml 140 ml Output Total 900 ml 800 ml Balance -685 ml -660 ml Intake Oral 100 ml 140 ml IV Total 115 ml Output Urine Total 900 ml 800 ml Laboratory Tests Test 07/30/18 03:40 White Blood Count 7.4 K/UL (4.8-10.8) Red Blood Count 3.68 M/UL (4.20-5.40) L Hemoglobin 9.8 G/DL (12.0-16.0) L Hematocrit 31.5 % (37.0-47.0) L Mean Corpuscular Volume 86 FL (80-99) Mean Corpuscular Hemoglobin 26.6 PG (27.0-31.0) L Mean Corpuscular Hemoglobin Concent 31.1 G/DL (32.0-36.0) L Red Cell Distribution Width 18.3 % (11.6-14.8) H Platelet Count 146 K/UL (150-450) L Mean Platelet Volume 7.1 FL (6.5-10.1) Neutrophils (%) (Auto) 77.2 % (45.0-75.0) H Lymphocytes (%) (Auto) 11.0 % (20.0-45.0) L Monocytes (%) (Auto) 8.2 % (1.0-10.0) Eosinophils (%) (Auto) 2.3 % (0.0-3.0) Basophils (%) (Auto) 1.2 % (0.0-2.0) Erythrocyte Sedimentation Rate 24 MM/HR (0-30) Sodium Level 139 MMOL/L (136-145) Potassium Level 3.4 MMOL/L (3.5-5.1) L Chloride Level 95 MMOL/L (98-107) L Carbon Dioxide Level > 45 MMOL/L (21-32) *H Anion Gap -1 mmol/L (5-15) L Blood Urea Nitrogen 8 mg/dL (7-18) Creatinine 0.5 MG/DL (0.55-1.30) L Estimat Glomerular Filtration Rate mL/min (>60) Glucose Level 79 MG/DL (74-106) Calcium Level 8.9 MG/DL (8.5-10.1) Total Bilirubin 0.5 MG/DL (0.2-1.0) Aspartate Amino Transf (AST/SGOT) 15 U/L (15-37) Alanine Aminotransferase (ALT/SGPT) 15 U/L (12-78) Alkaline Phosphatase 56 U/L (46-116) Troponin I 0.000 ng/mL (0.000-0.056) C-Reactive Protein, Quantitative 5.8 mg/dL (0.00-0.90) H Pro-B-Type Natriuretic Peptide 1817 pg/mL (0-125) H Total Protein 5.9 G/DL (6.4-8.2) L Albumin 2.8 G/DL (3.4-5.0) L Globulin 3.1 g/dL Albumin/Globulin Ratio 0.9 (1.0-2.7) L Microbiology Date/Time Source Procedure Growth Status 07/28/18 06:50 Blood Blood Culture - Preliminary Staphylococcus Sp Coag Neg Resulted 07/28/18 06:36 Blood Blood Culture - Preliminary Staphylococcus Sp Coag Neg Resulted 07/28/18 02:50 Nasal Nares MRSA Culture - Final NO METHICILLIN RESISTANT STAPH AUREUS... Complete 07/28/18 02:50 Rectum VRE Culture - Final Enterococcus Faecalis - Vre Complete 07/28/18 02:50 Rectum - Final NO CARBAPENEM-RESISTANT ENTEROBACTERI... Complete Akbar Reno MD Jul 30, 2018 19:40
[2018-07-30 20:00] VITALS: BP 111/52
--- NOTE | 2018-07-30 20:00 | NUR ---
NURSE NOTES: Patient received from Mauricio OVALLES. The patient is alert and oriented to place, time, orientation and purpose. Patient HR is aflutter/Afib, BP remain normotensive. Patients IV lines are no good, will insert new IV line soon. Patient call button at bedside, bed in low position, Will continue tomorrow.
[2018-07-31] VITALS: BP 140/68
--- NOTE | 2018-07-31 | NUR ---
NURSE NOTES: Patients both IV lines infiltrated, new 22G inserted at the right hand. Patient remains awake and responsive. HR afib/aflutter.
[2018-07-31 04:00] VITALS: BP 124/54
--- NOTE | 2018-07-31 04:00 | NUR ---
NURSE NOTES: Patient repositioned and provided oral care. Patient cleaned, no BM. New external urinary catheter applied. IV lines remains patient and intact.
--- NOTE | 2018-07-31 07:05 | NUR ---
NURSE NOTES: Received patient from CHARLETTE Hancock. Patient in bed, awake, oriented, and verbally responsive. currently on 4L NC with 02 sat of 98%. In no respiratory distress. pvc monitor is in placed. IV site on the right hand 22G asymptomatic. Bed in lowest position with side rails up. Will continue to follow plan of care.
[2018-07-31 07:41] LABS: BASOPHILS % (AUTO) 1.6 % (0.0-2.0); EOSINOPHILS % (AUTO) 3.7 % (0.0-3.0); HEMATOCRIT 34.6 % (37.0-47.0); HEMOGLOBIN 10.9 G/DL (12.0-16.0); LYMPHOCYTES % (AUTO) 16.8 % (20.0-45.0); MEAN CORPUSCULAR VOLUME 85 FL (80-99); MONOCYTES % (AUTO) 9.5 % (1.0-10.0); NEUTROPHILS % (AUTO) 68.4 % (45.0-75.0); PLATELET COUNT 160 K/UL (150-450); RED BLOOD COUNT 4.09 M/UL (4.20-5.40); RED CELL DISTRIBUTION WIDTH 18.6 % (11.6-14.8); WHITE BLOOD COUNT 6.8 K/UL (4.8-10.8)
[2018-07-31 08:00] VITALS: BP 118/48
[2018-07-31 08:11] LABS: ALANINE AMINOTRANSFERASE 13 U/L (12-78); ALBUMIN/GLOBULIN RATIO 0.9 (1.0-2.7); ALKALINE PHOSPHATASE 59 U/L (46-116); ANION GAP 1 mmol/L (5-15); ASPARTATE AMINO TRANSFERASE 12 U/L (15-37); BILIRUBIN,TOTAL 0.5 MG/DL (0.2-1.0); BLOOD UREA NITROGEN 9 mg/dL (7-18); CHLORIDE 95 MMOL/L (98-107); CREATININE 0.6 MG/DL (0.55-1.30); POTASSIUM 3.5 MMOL/L (3.5-5.1); SODIUM 140 MMOL/L (136-145)
[2018-07-31 08:32] LABS: CARBON DIOXIDE 44 MMOL/L (21-32)
--- NOTE | 2018-07-31 08:43 | NUR ---
RD ASSESSMENT & RECOMMENDATIONS SEE CARE ACTIVITY FOR COMPLETE ASSESSMENT DAILY ESTIMATED NEEDS: Needs based on Pulmonary, Cardiac/ 54kg abw 25-30 kcals/kg 4331-6524 total kcals 1-1.5 g protein/kg 54-81 g total protein 20-25 mL/kg 4223-3872 total fluid mLs NUTRITION DIAGNOSIS: * Swallowing difficulty R/T dysphagia as evidenced by pt on mech soft ground, honey thick liquids. CURRENT DIET:CATHY/ mech soft ground, HTL PO DIET RECOMMENDATIONS: LOW NA/ texture per NECKTIE TURNER ADDITIONAL RECOMMENDATIONS: * Calibrated bedscale wt for accurate CBW -daily wts per policy: CHF dx * NECKTIE TURNER eval for appropriate texture * Monitor lytes daily w/ lasix, replete as needed . . .
[2018-07-31] MEDS: Vancomycin 500mg/D5W 110ml IVPB SCH ×2 (08:48)
[2018-07-31] MEDS: Eliquis 2.5mg tablet ORAL SCH ×2 (08:48→17:56)
--- NOTE | 2018-07-31 11:36 | General Progress Note ---
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 (2) Dementia ICD Codes: F03.90 - Dementia SNOMED: 60925380 (3) Paranoid schizophrenia ICD Codes: F20.0 - Paranoid schizophrenia SNOMED: 31848589 Assessment/Plan Haldol 5mg q 6hr prn agitation Risperdal 1mg po qhs The pt lacks capacity to make decision Subjective Allergies: Coded Allergies: PIPERACILLIN (Unverified Allergy, Unknown, 05/21/18) tolerates cephalosporins TAZOBACTAM (Unverified Allergy, Unknown, 03/10/18) Subjective the pt was more alert and interactive the pt is not restraints and more cooperative Objective Last 24 Hour Vital Signs Date Time Temp Pulse Resp B/P (MAP) Pulse Ox O2 Delivery O2 Flow Rate FiO2 07/31/18 08:00 98.5 82 27 118/48 (71) 97 07/31/18 08:00 Room Air 3.0 07/31/18 07:51 82 07/31/18 06:55 100 Nasal Cannula 4.0 36 07/31/18 06:55 Nasal Cannula 4.0 36 07/31/18 06:55 81 20 Nasal Cannula 4.0 36 07/31/18 04:00 88 07/31/18 04:00 Room Air 3.0 07/31/18 04:00 97.6 80 24 124/54 (77) 99 07/31/18 00:00 97.6 87 22 140/68 (92) 98 07/31/18 00:00 Room Air 3.0 07/30/18 20:00 98.2 90 20 111/52 (71) 98 07/30/18 20:00 90 07/30/18 20:00 Venturi Mask 14.0 07/30/18 19:16 Nasal Cannula 4.0 36 07/30/18 19:16 97 Nasal Cannula 4.0 36 07/30/18 19:15 89 18 Nasal Cannula 4.0 36 07/30/18 16:00 Venturi Mask 14.0 07/30/18 16:00 98.2 88 20 133/65 (87) 98 07/30/18 16:00 89 07/30/18 12:00 91 07/30/18 12:00 97.2 88 20 129/92 (104) 97 07/30/18 12:00 Venturi Mask 14.0 Intake and Output 07/30/18 07/31/18 19:00 07:00 Intake Total 360 ml 110 ml Output Total 700 ml 400 ml Balance -340 ml -290 ml Intake Oral 250 ml IV Total 110 ml 110 ml Output Urine Total 700 ml 400 ml Laboratory Tests 07/31/18 07:21: White Blood Count 6.8, Red Blood Count 4.09L, Hemoglobin 10.9L, Hematocrit 34.6L , Mean Corpuscular Volume 85, Mean Corpuscular Hemoglobin 26.7L, Mean Corpuscular Hemoglobin Concent 31.6L, Red Cell Distribution Width 18.6H, Platelet Count 160, Mean Platelet Volume 7.2, Neutrophils (%) (Auto) 68.4, Lymphocytes (%) (Auto) 16.8L, Monocytes (%) (Auto) 9.5, Eosinophils (%) (Auto) 3.7H, Basophils (%) (Auto) 1.6, Sodium Level 140, Potassium Level 3.5, Chloride Level 95L, Carbon Dioxide Level 44*H, Anion Gap 1L, Blood Urea Nitrogen 9, Creatinine 0.6, Estimat Glomerular Filtration Rate , Glucose Level 94, Calcium Level 9.0, Total Bilirubin 0.5, Aspartate Amino Transf (AST/SGOT) 12L, Alanine Aminotransferase (ALT/SGPT) 13, Alkaline Phosphatase 59, Pro-B-Type Natriuretic Peptide 788H, Total Protein 6.3L, Albumin 3.0L, Globulin 3.3, Albumin/Globulin Ratio 0.9L, Vancomycin Level Trough 11.3 Height (Feet): 5 Height (Inches): 4.00 Weight (Pounds): 177 Luiz Morrison MD Jul 31, 2018 11:36
[2018-07-31 12:00] VITALS: BP 120/56
--- NOTE | 2018-07-31 13:06 | Diagnostic Imaging Report ---
Indication: Shortness of breath Technique: One view of the chest Comparison: 07/30/2018 Findings: Body habitus limits evaluation. There is persistent retrocardiac opacification. Hazy opacity of the right lung most likely reflects overlying soft tissue. Monitor device overlies the heart. Findings are overall unchanged allowing for differences in rotation Impression: Unchanged, over one day, findings as above.
--- NOTE | 2018-07-31 13:17 | Pulmonology Progress Note ---
Assessment/Plan Problems: (1) Respiratory failure, acute (2) Acute diastolic CHF (congestive heart failure) (3) Pulmonary edema (4) Atrial flutter (5) CAD (coronary artery disease) (6) Pacemaker (7) Major depression (8) Wheelchair bound (9) Paranoid schizophrenia Assessment/Plan on nasal cannula continue diuretics check electrolytes K supplement all reviewed continue antidepressant echo reviewed check CXR and BNP in am, all improving decrease lasix once the bun/creatinine started to rise. dvt prophylaxis. Subjective ROS Limited/Unobtainable: No Constitutional: Reports: no symptoms HEENT: Repors: no symptoms Respiratory: Reports: no symptoms Allergies: Coded Allergies: PIPERACILLIN (Unverified Allergy, Unknown, 05/21/18) tolerates cephalosporins TAZOBACTAM (Unverified Allergy, Unknown, 03/10/18) Objective Last 24 Hour Vital Signs Date Time Temp Pulse Resp B/P (MAP) Pulse Ox O2 Delivery O2 Flow Rate FiO2 07/31/18 12:00 Room Air 3.0 07/31/18 12:00 98.8 81 27 120/56 (77) 98 07/31/18 08:00 98.5 82 27 118/48 (71) 97 07/31/18 08:00 Room Air 3.0 07/31/18 07:51 82 07/31/18 06:55 100 Nasal Cannula 4.0 36 07/31/18 06:55 Nasal Cannula 4.0 36 07/31/18 06:55 81 20 Nasal Cannula 4.0 36 07/31/18 04:00 88 07/31/18 04:00 Room Air 3.0 07/31/18 04:00 97.6 80 24 124/54 (77) 99 07/31/18 00:00 97.6 87 22 140/68 (92) 98 07/31/18 00:00 Room Air 3.0 07/30/18 20:00 98.2 90 20 111/52 (71) 98 07/30/18 20:00 90 07/30/18 20:00 Venturi Mask 14.0 07/30/18 19:16 Nasal Cannula 4.0 36 07/30/18 19:16 97 Nasal Cannula 4.0 36 07/30/18 19:15 89 18 Nasal Cannula 4.0 36 07/30/18 16:00 Venturi Mask 14.0 07/30/18 16:00 98.2 88 20 133/65 (87) 98 07/30/18 16:00 89 Intake and Output 07/30/18 07/31/18 19:00 07:00 Intake Total 360 ml 110 ml Output Total 700 ml 400 ml Balance -340 ml -290 ml Intake Oral 250 ml IV Total 110 ml 110 ml Output Urine Total 700 ml 400 ml General Appearance: WD/WN HEENT: normocephalic, atraumatic Respiratory/Chest: chest wall non-tender, lungs clear Breasts: no masses Cardiovascular: normal peripheral pulses, normal rate Abdomen: normal bowel sounds, soft, non tender Genitourinary: normal external genitalia Extremities: no clubbing Skin: no rash Neurologic/Psychiatric: 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 II-XII grossly normal Lymphatic: no neck adenopathy Microbiology Date/Time Source Procedure Growth Status 07/29/18 16:00 Blood Blood Culture - Preliminary NO GROWTH AFTER 24 HOURS Resulted 07/29/18 15:45 Blood Blood Culture - Preliminary NO GROWTH AFTER 24 HOURS Resulted Laboratory Tests 07/31/18 07:21: White Blood Count 6.8, Red Blood Count 4.09L, Hemoglobin 10.9L, Hematocrit 34.6L , Mean Corpuscular Volume 85, Mean Corpuscular Hemoglobin 26.7L, Mean Corpuscular Hemoglobin Concent 31.6L, Red Cell Distribution Width 18.6H, Platelet Count 160, Mean Platelet Volume 7.2, Neutrophils (%) (Auto) 68.4, Lymphocytes (%) (Auto) 16.8L, Monocytes (%) (Auto) 9.5, Eosinophils (%) (Auto) 3.7H, Basophils (%) (Auto) 1.6, Sodium Level 140, Potassium Level 3.5, Chloride Level 95L, Carbon Dioxide Level 44*H, Anion Gap 1L, Blood Urea Nitrogen 9, Creatinine 0.6, Estimat Glomerular Filtration Rate , Glucose Level 94, Calcium Level 9.0, Total Bilirubin 0.5, Aspartate Amino Transf (AST/SGOT) 12L, Alanine Aminotransferase (ALT/SGPT) 13, Alkaline Phosphatase 59, Pro-B-Type Natriuretic Peptide 788H, Total Protein 6.3L, Albumin 3.0L, Globulin 3.3, Albumin/Globulin Ratio 0.9L, Vancomycin Level Trough 11.3 Current Medications Medications (Trade) Dose Ordered Sig/Ibrahima Route PRN Reason Start Time Stop Time Status Last Admin Dose Admin Acetaminophen (Tylenol) 650 mg Q4H PRN ORAL Fever 07/28/18 15:49 08/27/18 15:48 Albuterol/ Ipratropium (Albuterol/ Ipratropium) 3 ml Q4H PRN HHN Shortness of Breath 07/28/18 15:49 08/02/18 15:48 Apixaban (Eliquis) 5 mg BID ORAL 07/28/18 18:00 08/27/18 17:59 07/31/18 08:48 Dextrose (Dextrose 50%) 25 ml Q30M PRN IV Hypoglycemia 07/28/18 16:15 08/27/18 10:44 Dextrose (Dextrose 50%) 50 ml Q30M PRN IV Hypoglycemia 07/28/18 16:15 08/27/18 10:44 Furosemide (Lasix) 40 mg EVERY 8 HOURS IV 07/28/18 22:00 08/27/18 13:59 07/31/18 05:58 Haloperidol Lactate (Haldol) 5 mg Q6H PRN IM Agitation 07/28/18 16:00 08/27/18 15:48 Ondansetron HCl (Zofran) 4 mg Q6H PRN IVP Nausea & Vomiting 07/28/18 15:49 08/27/18 15:48 Polyethylene Glycol (Miralax) 17 gm DAILYPRN PRN ORAL Constipation 07/28/18 15:49 08/27/18 15:48 Risperidone (RisperDAL) 1 mg BEDTIME ORAL 07/28/18 21:00 08/27/18 20:59 07/30/18 20:56 Temazepam (Restoril) 15 mg HSPRN PRN ORAL Insomnia 07/28/18 15:50 08/04/18 15:49 07/30/18 20:57 Vancomycin HCl (Vanco rx to dose) 1 ea DAILY PRN MISC Per rx protocol 07/29/18 13:00 08/28/18 12:59 Vancomycin HCl/ Dextrose 275 ml @ 183.333 mls/hr Q24H IVPB 07/31/18 21:00 08/05/18 20:59 Mendel Sierra MD Jul 31, 2018 13:17
--- NOTE | 2018-07-31 13:30 | NUR ---
TRANSFER TO FLOOR: Patient transferred to Telemetry 211-1, per Dr. Sierra. Report given to CHARLETTE James. Patient has no belongings and chart is given to CHARLETTE James. Patient stable.
--- NOTE | 2018-07-31 13:31 | NUR ---
NURSE NOTES: Received patient via gurney, report given by CHARLETTE Doss. Patient is awake and oriented x3, Verbally responsive. No signs and symptoms of acute distress noted at this time. No SOB with 4 lit Nasal Cannula. Bed in lowest position with two side rails up, break engaged. Call light and bed side table within reach. Will continue to monitor and follow the plan of care. Addendum: 07/31/18 at 1501 by ZELDA CRAWFORD RN RN Patient transferred from [facility].
--- NOTE | 2018-07-31 14:27 | Cardiac Electrophysiology PN ---
Subjective Subjective [id number] Objective Last 24 Hour Vital Signs Date Time Temp Pulse Resp B/P (MAP) Pulse Ox O2 Delivery O2 Flow Rate FiO2 07/31/18 12:00 Room Air 3.0 07/31/18 12:00 98.8 81 27 120/56 (77) 98 07/31/18 11:34 79 07/31/18 08:00 98.5 82 27 118/48 (71) 97 07/31/18 08:00 Room Air 3.0 07/31/18 07:51 82 07/31/18 06:55 100 Nasal Cannula 4.0 36 07/31/18 06:55 Nasal Cannula 4.0 36 07/31/18 06:55 81 20 Nasal Cannula 4.0 36 07/31/18 04:00 88 07/31/18 04:00 Room Air 3.0 07/31/18 04:00 97.6 80 24 124/54 (77) 99 07/31/18 00:00 97.6 87 22 140/68 (92) 98 07/31/18 00:00 Room Air 3.0 07/30/18 20:00 98.2 90 20 111/52 (71) 98 07/30/18 20:00 90 07/30/18 20:00 Venturi Mask 14.0 07/30/18 19:16 Nasal Cannula 4.0 36 07/30/18 19:16 97 Nasal Cannula 4.0 36 07/30/18 19:15 89 18 Nasal Cannula 4.0 36 07/30/18 16:00 Venturi Mask 14.0 07/30/18 16:00 98.2 88 20 133/65 (87) 98 07/30/18 16:00 89 Intake and Output 07/30/18 07/31/18 19:00 07:00 Intake Total 360 ml 110 ml Output Total 700 ml 400 ml Balance -340 ml -290 ml Intake Oral 250 ml IV Total 110 ml 110 ml Output Urine Total 700 ml 400 ml Laboratory Tests Test 07/31/18 07:21 White Blood Count 6.8 K/UL (4.8-10.8) Red Blood Count 4.09 M/UL (4.20-5.40) L Hemoglobin 10.9 G/DL (12.0-16.0) L Hematocrit 34.6 % (37.0-47.0) L Mean Corpuscular Volume 85 FL (80-99) Mean Corpuscular Hemoglobin 26.7 PG (27.0-31.0) L Mean Corpuscular Hemoglobin Concent 31.6 G/DL (32.0-36.0) L Red Cell Distribution Width 18.6 % (11.6-14.8) H Platelet Count 160 K/UL (150-450) Mean Platelet Volume 7.2 FL (6.5-10.1) Neutrophils (%) (Auto) 68.4 % (45.0-75.0) Lymphocytes (%) (Auto) 16.8 % (20.0-45.0) L Monocytes (%) (Auto) 9.5 % (1.0-10.0) Eosinophils (%) (Auto) 3.7 % (0.0-3.0) H Basophils (%) (Auto) 1.6 % (0.0-2.0) Sodium Level 140 MMOL/L (136-145) Potassium Level 3.5 MMOL/L (3.5-5.1) Chloride Level 95 MMOL/L (98-107) L Carbon Dioxide Level 44 MMOL/L (21-32) *H Anion Gap 1 mmol/L (5-15) L Blood Urea Nitrogen 9 mg/dL (7-18) Creatinine 0.6 MG/DL (0.55-1.30) Estimat Glomerular Filtration Rate mL/min (>60) Glucose Level 94 MG/DL (74-106) Calcium Level 9.0 MG/DL (8.5-10.1) Total Bilirubin 0.5 MG/DL (0.2-1.0) Aspartate Amino Transf (AST/SGOT) 12 U/L (15-37) L Alanine Aminotransferase (ALT/SGPT) 13 U/L (12-78) Alkaline Phosphatase 59 U/L (46-116) Pro-B-Type Natriuretic Peptide 788 pg/mL (0-125) H Total Protein 6.3 G/DL (6.4-8.2) L Albumin 3.0 G/DL (3.4-5.0) L Globulin 3.3 g/dL Albumin/Globulin Ratio 0.9 (1.0-2.7) L Vancomycin Level Trough 11.3 ug/mL (5.0-12.0) Microbiology Date/Time Source Procedure Growth Status 07/29/18 16:00 Blood Blood Culture - Preliminary NO GROWTH AFTER 24 HOURS Resulted 07/29/18 15:45 Blood Blood Culture - Preliminary NO GROWTH AFTER 24 HOURS Resulted Yohan Milian MD Jul 31, 2018 14:27
--- NOTE | 2018-07-31 14:51 | Infectious Diseases Prog Note ---
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)- ?r/o PPM infection -07/28 Bcx / CONS; 07/29 Bcx NTD -2d echo: no obvious vegetation Afebrile NO leukocytosis hx of UTI Proteus mirabilis 04/2018 hx of recent probable Legionella Pneumonia, Legionella 04/2018, s/p Rx SP VDRF, 04/10 Sp extubated Legionella Ur Ag: Neg, Legionella IgM + / IgG - Scx: No sig growth Flu screen negative Atrial flutter dCHF COPD CAD s/p stents Hypertension Seizure disorder Schizophrenia Depression History of intraventricular pacemaker implantation GERD CVA/TIA b/l hip replacement hx of L DVT history of alcohol abuse hx of recurrent admissions hx of high grade CONS bacteremia (JIMY neg 09/2017) -also on 05/2018 [facility] resident Plan: -Continue empiric IV Vancomycin #3 for CONS bacteremia -f/u repeat Bcx x2 -May need JIMY (given recurrent CONS bacteremia and presence of PPM) -f/u cx -Monitor CBC/CMP, temperatures Thank you for this consultation. Will continue to follow along with you. Discussed with RN. Subjective Allergies: Coded Allergies: PIPERACILLIN (Unverified Allergy, Unknown, 05/21/18) tolerates cephalosporins TAZOBACTAM (Unverified Allergy, Unknown, 03/10/18) Subjective afebrile no leukocytosis repeat Bcx NTD Objective Vital Signs Last 24 Hour Vital Signs Date Time Temp Pulse Resp B/P (MAP) Pulse Ox O2 Delivery O2 Flow Rate FiO2 07/31/18 12:00 Room Air 3.0 07/31/18 12:00 98.8 81 27 120/56 (77) 98 07/31/18 11:34 79 07/31/18 08:00 98.5 82 27 118/48 (71) 97 07/31/18 08:00 Room Air 3.0 07/31/18 07:51 82 07/31/18 06:55 100 Nasal Cannula 4.0 36 07/31/18 06:55 Nasal Cannula 4.0 36 07/31/18 06:55 81 20 Nasal Cannula 4.0 36 07/31/18 04:00 88 07/31/18 04:00 Room Air 3.0 07/31/18 04:00 97.6 80 24 124/54 (77) 99 07/31/18 00:00 97.6 87 22 140/68 (92) 98 07/31/18 00:00 Room Air 3.0 07/30/18 20:00 98.2 90 20 111/52 (71) 98 07/30/18 20:00 90 07/30/18 20:00 Venturi Mask 14.0 07/30/18 19:16 Nasal Cannula 4.0 36 07/30/18 19:16 97 Nasal Cannula 4.0 36 07/30/18 19:15 89 18 Nasal Cannula 4.0 36 07/30/18 16:00 Venturi Mask 14.0 07/30/18 16:00 98.2 88 20 133/65 (87) 98 07/30/18 16:00 89 Height (Feet): 5 Height (Inches): 4.00 Weight (Pounds): 177 Objective GENERAL: The patient is a well-developed and well-nourished white female, in no apparent distress. HEENT: Eyes, pupils are equal and responsive to light and accommodation. Extraocular movements are intact. NECK: Supple without lymphadenopathy. CHEST: Lungs are clear to auscultation bilaterally without wheezes or rales. CARDIOVASCULAR: Regular rate, S1 and S2 normal without murmurs, rubs, or gallops. ABDOMEN: Soft, nontender, and nondistended. Positive bowel sounds. No evidence of hepatosplenomegaly. Currently, no rebound or guarding noted. EXTREMITIES: Negative for clubbing, cyanosis, or edema. Microbiology Date/Time Source Procedure Growth Status 07/29/18 16:00 Blood Blood Culture - Preliminary NO GROWTH AFTER 24 HOURS Resulted 07/29/18 15:45 Blood Blood Culture - Preliminary NO GROWTH AFTER 24 HOURS Resulted Laboratory Tests Test 07/31/18 07:21 White Blood Count 6.8 K/UL (4.8-10.8) Red Blood Count 4.09 M/UL (4.20-5.40) L Hemoglobin 10.9 G/DL (12.0-16.0) L Hematocrit 34.6 % (37.0-47.0) L Mean Corpuscular Volume 85 FL (80-99) Mean Corpuscular Hemoglobin 26.7 PG (27.0-31.0) L Mean Corpuscular Hemoglobin Concent 31.6 G/DL (32.0-36.0) L Red Cell Distribution Width 18.6 % (11.6-14.8) H Platelet Count 160 K/UL (150-450) Mean Platelet Volume 7.2 FL (6.5-10.1) Neutrophils (%) (Auto) 68.4 % (45.0-75.0) Lymphocytes (%) (Auto) 16.8 % (20.0-45.0) L Monocytes (%) (Auto) 9.5 % (1.0-10.0) Eosinophils (%) (Auto) 3.7 % (0.0-3.0) H Basophils (%) (Auto) 1.6 % (0.0-2.0) Sodium Level 140 MMOL/L (136-145) Potassium Level 3.5 MMOL/L (3.5-5.1) Chloride Level 95 MMOL/L (98-107) L Carbon Dioxide Level 44 MMOL/L (21-32) *H Anion Gap 1 mmol/L (5-15) L Blood Urea Nitrogen 9 mg/dL (7-18) Creatinine 0.6 MG/DL (0.55-1.30) Estimat Glomerular Filtration Rate mL/min (>60) Glucose Level 94 MG/DL (74-106) Calcium Level 9.0 MG/DL (8.5-10.1) Total Bilirubin 0.5 MG/DL (0.2-1.0) Aspartate Amino Transf (AST/SGOT) 12 U/L (15-37) L Alanine Aminotransferase (ALT/SGPT) 13 U/L (12-78) Alkaline Phosphatase 59 U/L (46-116) Pro-B-Type Natriuretic Peptide 788 pg/mL (0-125) H Total Protein 6.3 G/DL (6.4-8.2) L Albumin 3.0 G/DL (3.4-5.0) L Globulin 3.3 g/dL Albumin/Globulin Ratio 0.9 (1.0-2.7) L Vancomycin Level Trough 11.3 ug/mL (5.0-12.0) Current Medications Medications (Trade) Dose Ordered Sig/Ibrahima Route PRN Reason Start Time Stop Time Status Last Admin Dose Admin Acetaminophen (Tylenol) 650 mg Q4H PRN ORAL Fever 07/31/18 16:00 08/27/18 15:48 UNV Albuterol/ Ipratropium (Albuterol/ Ipratropium) 3 ml Q4H PRN HHN Shortness of Breath 07/31/18 16:00 08/02/18 15:48 UNV Apixaban (Eliquis) 5 mg BID ORAL 07/31/18 18:00 08/27/18 17:59 UNV Dextrose (Dextrose 50%) 25 ml Q30M PRN IV Hypoglycemia 07/31/18 14:45 08/27/18 10:44 UNV Dextrose (Dextrose 50%) 50 ml Q30M PRN IV Hypoglycemia 07/31/18 14:45 08/27/18 10:44 UNV Furosemide (Lasix) 40 mg EVERY 8 HOURS IV 07/31/18 22:00 08/27/18 13:59 UNV Haloperidol Lactate (Haldol) 5 mg Q6H PRN IM Agitation 07/31/18 16:00 08/27/18 15:48 UNV Ondansetron HCl (Zofran) 4 mg Q6H PRN IVP Nausea & Vomiting 07/31/18 16:00 08/27/18 15:48 UNV Polyethylene Glycol (Miralax) 17 gm DAILYPRN PRN ORAL Constipation 07/31/18 16:00 08/27/18 15:48 UNV Risperidone (RisperDAL) 1 mg BEDTIME ORAL 07/31/18 21:00 08/27/18 20:59 UNV Temazepam (Restoril) 15 mg HSPRN PRN ORAL Insomnia 07/31/18 16:00 08/04/18 15:49 UNV Vancomycin HCl (Vanco rx to dose) 1 ea DAILY PRN MISC Per rx protocol 08/01/18 09:00 08/28/18 12:59 UNV Vancomycin HCl/ Dextrose 275 ml @ 183.333 mls/hr Q24H IVPB 07/31/18 21:00 08/05/18 20:59 UNV Danica Nayak M.D. Jul 31, 2018 14:51
[2018-07-31] MEDS ORDERED: Haloperidol 5mg/ml Inj IM PRN (15:00)
[2018-07-31] MEDS ORDERED: Albuterol/Ipratropium 3ml neb HHN PRN (15:00)
--- NOTE | 2018-07-31 15:13 | Internal Med Progress Note ---
Subjective Physician Name Yonathan Mendoza Attending Physician Yonathan Mendoza MD Current Medications Medications (Trade) Dose Ordered Sig/Ibrahima Route PRN Reason Start Time Stop Time Status Last Admin Dose Admin Acetaminophen (Tylenol) 650 mg Q4H PRN ORAL Fever (temp>100.5F) 07/31/18 15:00 08/27/18 14:59 Albuterol/ Ipratropium (Albuterol/ Ipratropium) 3 ml Q4H PRN HHN Shortness of Breath 07/31/18 15:00 08/02/18 14:59 Apixaban (Eliquis) 5 mg BID ORAL 07/31/18 18:00 08/27/18 17:59 Dextrose (Dextrose 50%) 25 ml Q30M PRN IV Hypoglycemia 07/31/18 14:45 08/27/18 10:44 Dextrose (Dextrose 50%) 50 ml Q30M PRN IV Hypoglycemia 07/31/18 14:45 08/27/18 10:44 Furosemide (Lasix) 40 mg EVERY 8 HOURS IV 07/31/18 22:00 08/27/18 13:59 Haloperidol Lactate (Haldol) 5 mg Q6H PRN IM Agitation 07/31/18 15:00 08/27/18 14:59 Ondansetron HCl (Zofran) 4 mg Q6H PRN IVP Nausea & Vomiting 07/31/18 16:00 08/27/18 15:48 Polyethylene Glycol (Miralax) 17 gm DAILYPRN PRN ORAL Constipation 07/31/18 16:00 08/27/18 15:48 Risperidone (RisperDAL) 1 mg BEDTIME ORAL 07/31/18 21:00 08/27/18 20:59 Temazepam (Restoril) 15 mg HSPRN PRN ORAL Insomnia 07/31/18 21:00 08/04/18 20:59 Vancomycin HCl (Vanco rx to dose) 1 ea DAILY PRN MISC Per rx protocol 07/31/18 15:00 08/30/18 14:59 Vancomycin HCl/ Dextrose 275 ml @ 183.333 mls/hr Q24H IVPB 07/31/18 21:00 08/05/18 20:59 Allergies: Coded Allergies: PIPERACILLIN (Unverified Allergy, Unknown, 05/21/18) tolerates cephalosporins TAZOBACTAM (Unverified Allergy, Unknown, 03/10/18) Subjective awake, alert, responsive, C/O cough, No Chest pain Objective Last Vital Signs Date Time Temp Pulse Resp B/P (MAP) Pulse Ox O2 Delivery O2 Flow Rate FiO2 07/31/18 12:00 Room Air 3.0 07/31/18 12:00 98.8 81 27 120/56 (77) 98 07/31/18 06:55 36 Laboratory Tests Test 07/31/18 07:21 White Blood Count 6.8 K/UL (4.8-10.8) Red Blood Count 4.09 M/UL (4.20-5.40) L Hemoglobin 10.9 G/DL (12.0-16.0) L Hematocrit 34.6 % (37.0-47.0) L Mean Corpuscular Volume 85 FL (80-99) Mean Corpuscular Hemoglobin 26.7 PG (27.0-31.0) L Mean Corpuscular Hemoglobin Concent 31.6 G/DL (32.0-36.0) L Red Cell Distribution Width 18.6 % (11.6-14.8) H Platelet Count 160 K/UL (150-450) Mean Platelet Volume 7.2 FL (6.5-10.1) Neutrophils (%) (Auto) 68.4 % (45.0-75.0) Lymphocytes (%) (Auto) 16.8 % (20.0-45.0) L Monocytes (%) (Auto) 9.5 % (1.0-10.0) Eosinophils (%) (Auto) 3.7 % (0.0-3.0) H Basophils (%) (Auto) 1.6 % (0.0-2.0) Sodium Level 140 MMOL/L (136-145) Potassium Level 3.5 MMOL/L (3.5-5.1) Chloride Level 95 MMOL/L (98-107) L Carbon Dioxide Level 44 MMOL/L (21-32) *H Anion Gap 1 mmol/L (5-15) L Blood Urea Nitrogen 9 mg/dL (7-18) Creatinine 0.6 MG/DL (0.55-1.30) Estimat Glomerular Filtration Rate mL/min (>60) Glucose Level 94 MG/DL (74-106) Calcium Level 9.0 MG/DL (8.5-10.1) Total Bilirubin 0.5 MG/DL (0.2-1.0) Aspartate Amino Transf (AST/SGOT) 12 U/L (15-37) L Alanine Aminotransferase (ALT/SGPT) 13 U/L (12-78) Alkaline Phosphatase 59 U/L (46-116) Pro-B-Type Natriuretic Peptide 788 pg/mL (0-125) H Total Protein 6.3 G/DL (6.4-8.2) L Albumin 3.0 G/DL (3.4-5.0) L Globulin 3.3 g/dL Albumin/Globulin Ratio 0.9 (1.0-2.7) L Vancomycin Level Trough 11.3 ug/mL (5.0-12.0) Microbiology Date/Time Source Procedure Growth Status 07/29/18 16:00 Blood Blood Culture - Preliminary NO GROWTH AFTER 24 HOURS Resulted 07/29/18 15:45 Blood Blood Culture - Preliminary NO GROWTH AFTER 24 HOURS Resulted Intake and Output 07/30/18 07/31/18 19:00 07:00 Intake Total 360 ml 110 ml Output Total 700 ml 400 ml Balance -340 ml -290 ml Intake Oral 250 ml IV Total 110 ml 110 ml Output Urine Total 700 ml 400 ml Objective General: No acute distress, awake and alert HEENT: NCAT, sclera anicteric, PERRL, EOMI. Neck: Supple, no significant jugular venous distention, Lungs: Fair inspiratory effort, decrease air at bases, no Wheeze or Rales. Heart: Irregular rate and rhythm, normal S1/S2, no murmur. Abdomen: soft, nontender, nondistended. Normoactive bowel sounds, Obesity. Extremities: No Cyanosis , clubbing or edema. Neuro: A&O x 3, Able to move all extremities Skin: warm, no rash. 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)- ?r/o PPM infection hx of UTI Proteus mirabilis 04/2018 hx of recent probable Legionella Pneumonia, Legionella 04/2018, s/p Rx SP VDRF, 04/10 Sp extubated Atrial flutter dCHF COPD CAD s/p stents Hypertension Seizure disorder Schizophrenia Depression History of intraventricular pacemaker implantation GERD CVA/TIA b/l hip replacement hx of L DVT history of alcohol abuse hx of recurrent admissions hx of high grade CONS bacteremia (JIMY neg 09/2017) -also on 05/2018 [facility] resident Plan: -Continue empiric IV Vancomycin #3 for CONS bacteremia -f/u repeat Bcx x2 -As per ID recommendations: May need JIMY (given recurrent CONS bacteremia and presence of PPM) -Monitor labs - DVT prophylaxis: Eliquis - Abx: Vanco Yonathan Waldron MD Jul 31, 2018 15:13
--- NOTE | 2018-07-31 15:14 | NUR ---
[employer]NA[employer] SI: ENCEPHALOPATHY,DYSPNEA T. 98.9 HR 81 RR 27 B/P 120/86 C02 44 BNP 788 CXR= NO CHANGES IS: LASIX IV VANCO IV ALB HHN TELE STATUS
[2018-07-31 16:00] VITALS: BP 150/94
[2018-07-31] MEDS ORDERED: Miralax 17gm pkt ORAL PRN (16:00)
[2018-07-31] MEDS ORDERED: VANCOMYCIN IVPB SCH (16:30)
[2018-07-31] MEDS ORDERED: [UNRECOGNIZED DRUG - OTHER] IVPB SCH (16:30)
[2018-07-31] MEDS ORDERED: NS 275ml ONE ×2 (16:37→17:03)
[2018-07-31] MEDS ORDERED: Tubing IV Secondary IV ONE (17:03)
--- NOTE | 2018-07-31 19:00 | Cardiology Progress Note ---
Assessment/Plan Assessment/Plan 1. Permanent atrial fibrillation/flutter. 2. History of permanent pacemaker implantation, leadless device. 3. COPD. 4. Diastolic heart failure. 5. Bilateral pleural effusion. 6. Pulmonary hypertension. 7. Mild to moderate mitral and aortic valvular disease. 8. Dementia. 9. bacteremia feel adn looks better tele noted labs ntoed diuresis swithc to po oob in chair blood cx noted id noted iv abx hhn ? diamox? Subjective Cardiovascular: Denies: chest pain, lightheadedness Respiratory: Denies: shortness of breath Gastrointestinal/Abdominal: Denies: abdominal pain Genitourinary: Denies: burning Objective Last 24 Hour Vital Signs Date Time Temp Pulse Resp B/P (MAP) Pulse Ox O2 Delivery O2 Flow Rate FiO2 07/31/18 16:00 76 07/31/18 16:00 97.9 77 20 150/94 (112) 98 07/31/18 12:00 Room Air 3.0 07/31/18 12:00 98.8 81 27 120/56 (77) 98 07/31/18 11:34 79 07/31/18 08:00 98.5 82 27 118/48 (71) 97 07/31/18 08:00 Room Air 3.0 07/31/18 07:51 82 07/31/18 06:55 100 Nasal Cannula 4.0 36 07/31/18 06:55 Nasal Cannula 4.0 36 07/31/18 06:55 81 20 Nasal Cannula 4.0 36 07/31/18 04:00 88 07/31/18 04:00 Room Air 3.0 07/31/18 04:00 97.6 80 24 124/54 (77) 99 07/31/18 00:00 97.6 87 22 140/68 (92) 98 07/31/18 00:00 Room Air 3.0 07/30/18 20:00 98.2 90 20 111/52 (71) 98 07/30/18 20:00 90 07/30/18 20:00 Venturi Mask 14.0 07/30/18 19:16 Nasal Cannula 4.0 36 07/30/18 19:16 97 Nasal Cannula 4.0 36 07/30/18 19:15 89 18 Nasal Cannula 4.0 36 General Appearance: no apparent distress Neck: supple Cardiovascular: irregularly irregular Respiratory/Chest: decreased breath sounds Abdomen: normal bowel sounds, non tender, soft Extremities: no swelling Intake and Output 07/30/18 07/31/18 19:00 07:00 Intake Total 360 ml 110 ml Output Total 700 ml 400 ml Balance -340 ml -290 ml Intake Oral 250 ml IV Total 110 ml 110 ml Output Urine Total 700 ml 400 ml Laboratory Tests Test 07/31/18 07:21 White Blood Count 6.8 K/UL (4.8-10.8) Red Blood Count 4.09 M/UL (4.20-5.40) L Hemoglobin 10.9 G/DL (12.0-16.0) L Hematocrit 34.6 % (37.0-47.0) L Mean Corpuscular Volume 85 FL (80-99) Mean Corpuscular Hemoglobin 26.7 PG (27.0-31.0) L Mean Corpuscular Hemoglobin Concent 31.6 G/DL (32.0-36.0) L Red Cell Distribution Width 18.6 % (11.6-14.8) H Platelet Count 160 K/UL (150-450) Mean Platelet Volume 7.2 FL (6.5-10.1) Neutrophils (%) (Auto) 68.4 % (45.0-75.0) Lymphocytes (%) (Auto) 16.8 % (20.0-45.0) L Monocytes (%) (Auto) 9.5 % (1.0-10.0) Eosinophils (%) (Auto) 3.7 % (0.0-3.0) H Basophils (%) (Auto) 1.6 % (0.0-2.0) Sodium Level 140 MMOL/L (136-145) Potassium Level 3.5 MMOL/L (3.5-5.1) Chloride Level 95 MMOL/L (98-107) L Carbon Dioxide Level 44 MMOL/L (21-32) *H Anion Gap 1 mmol/L (5-15) L Blood Urea Nitrogen 9 mg/dL (7-18) Creatinine 0.6 MG/DL (0.55-1.30) Estimat Glomerular Filtration Rate mL/min (>60) Glucose Level 94 MG/DL (74-106) Calcium Level 9.0 MG/DL (8.5-10.1) Total Bilirubin 0.5 MG/DL (0.2-1.0) Aspartate Amino Transf (AST/SGOT) 12 U/L (15-37) L Alanine Aminotransferase (ALT/SGPT) 13 U/L (12-78) Alkaline Phosphatase 59 U/L (46-116) Pro-B-Type Natriuretic Peptide 788 pg/mL (0-125) H Total Protein 6.3 G/DL (6.4-8.2) L Albumin 3.0 G/DL (3.4-5.0) L Globulin 3.3 g/dL Albumin/Globulin Ratio 0.9 (1.0-2.7) L Vancomycin Level Trough 11.3 ug/mL (5.0-12.0) Microbiology Date/Time Source Procedure Growth Status 07/29/18 16:00 Blood Blood Culture - Preliminary NO GROWTH AFTER 24 HOURS Resulted 07/29/18 15:45 Blood Blood Culture - Preliminary NO GROWTH AFTER 24 HOURS Resulted Akbar Reno MD Jul 31, 2018 19:00
--- NOTE | 2018-07-31 19:20 | NUR ---
HAND-OFF: Report given to CHARLETTE Grover.
--- NOTE | 2018-07-31 19:25 | NUR ---
NURSE NOTES: Received report from CHARLETTE Navarro. Patient awake, alert and verbally responsive. No SOB, no acute distress on 4 L via NC. IV site on R hand #[id number], patent and intact. Bed at lowest position, call light within reach. Sz precautions in place. Will continue plan of care.
[2018-07-31 20:00] VITALS: BP 124/47
--- NOTE | 2018-07-31 20:45 | Consultation ---
DATE OF CONSULTATION: 07/31/2018 CONSULTING PHYSICIAN: ATTENDING PHYSICIAN: Yonathan Mendoza M.D. REASON FOR CONSULTATION: Pressure ulcer prevention. HISTORY OF PRESENT ILLNESS: This is a 77-year-old woman, who was admitted for altered mental status and also found to have congestive heart failure. PAST MEDICAL HISTORY: Congestive heart failure, atrial flutter, chronic obstructive pulmonary disease, the patient has a pacemaker, hypertension, seizure disorder, and depression. MEDICATIONS: The patient is on albuterol, Eliquis, Lasix, Haldol, Zofran, MiraLAX, Risperdal, Restoril, and vancomycin. REVIEW OF SYSTEMS: The patient was unable to participate in review of systems because of her mental status. PHYSICAL EXAM: VITAL SIGNS: The patient is afebrile. Her vitals are stable. GENERAL: She is well developed and well nourished. She is in no acute distress and alert. HEENT: Her extraocular movements are intact. ABDOMEN: Soft, nontender, and nondistended. EXTREMITIES: Negative for clubbing, cyanosis, or edema. ASSESSMENT: The patient with recent admission with altered mental status found to have congestive heart failure being followed by Cardiology. She also has chronic obstructive pulmonary disease. The patient is unable to turn and reposition herself and also needs assistance to use the rest room. RECOMMENDATIONS: 1. Monitor for and manage friction and shear. 2. Perform weekly skin checks. 3. Assess condition of mattress pressure reduction surface. 4. Keep linens dry and wrinkle free. 5. Moisturize skin daily. 6. Barrier cream to the buttocks. 7. Float heels off of mattress. 8. Nutrition consult to ensure adequate nutritional needs and please monitor laboratories. 9. Please monitor weight. 10. Turn and reposition q.2 hours. Laura Edward M.D. DR: VICTOR HUGO JOB#: [id number] CC: CHANEL
[2018-07-31] MEDS ORDERED: Vancomycin 1.25gm Premix q24h IVPB SCH (21:00)
[2018-07-31] MEDS ORDERED: Vancomycin 1.25gm Premix 275 ML IVPB SCH (21:00)
[2018-07-31] MEDS: Vancomycin 1.25gm Premix IVPB SCH (21:23)
[2018-08-01] VITALS: BP 122/52
--- NOTE | 2018-08-01 01:45 | Consultation ---
DATE OF CONSULTATION: 07/31/2018 CARDIAC ELECTROPHYSIOLOGY CONSULTATION CONSULTING PHYSICIAN: Yohan Milian M.D. REFERRING PHYSICIAN: Yonathan Mendoza M.D. REASON FOR CONSULTATION: Atrial flutter as well as evaluation of the patient's leadless pacemaker. HISTORY OF PRESENT ILLNESS: The patient is a very pleasant 77-year-old lady with history of hypertension, chronic atrial flutter, as well as history of leadless Medtronic pacemaker implantation in 2016. she was admitted just about a month ago. The patient also has congestive heart failure due to diastolic dysfunction as well as chronic obstructive pulmonary disease and dementia. The patient was admitted with increasing shortness of breath from intermediate. The patient initially was placed on BiPAP. She was using two pillows. Cardiac electrophysiology consultation was obtained for further evaluation of the patient's pacemaker and atrial flutter. REVIEW OF SYSTEMS: Negative other than what was mentioned in the history of present illness. PAST MEDICAL HISTORY: 1. Chronic atrial flutter. 2. Status post Medtronic leadless pacemaker implantation in 2016 at [facility]. 3. Diastolic congestive heart failure. 4. Chronic obstructive pulmonary disease. 5. Respiratory failure. 6. Encephalopathy. 7. Schizophrenia. 8. Coronary artery disease. 9. Pleural effusion. 10. History of bacteremia. 11. Depression. ALLERGIES: She is allergic to tazobactam and piperacillin. SOCIAL HISTORY: She is a intermediate resident. Used to smoke and drink alcohol in the past. PHYSICAL EXAMINATION: VITAL SIGNS: Show blood pressure of 130/66, pulse is 80, respirations 18, and temperature 98.1. HEAD AND NECK: Showed no JVD. LUNGS: Decreased breath sounds. CARDIOVASCULAR: Shows regular S1 and S2 with no gallop. ABDOMEN: Soft. EXTREMITIES: 1+ pitting edema. LABORATORY DATA: Her labs show white count of 6.8, hemoglobin 10.9, hematocrit 34.6, and platelet count 160. Sodium 140, potassium 3.5, BUN of 9, and creatinine 0.6. Troponin is negative. BNP 6480. ASSESSMENT AND PLAN: 1. Chronic atrial flutter. The rate is currently controlled despite being off of any AV yumi blocking agents. The patient will be on anticoagulation with Eliquis 5 mg b.i.d. 2. Status post leadless Medtronic pacemaker implantation in 2016. This is functioning normally. AV paced only in the ventricle as it is an intra right ventricular pacemaker. 3. Diastolic dysfunction and congestive heart failure, on Lasix 40 mg IV every eight hours. 4. Sepsis, on IV antibiotics. 5. History of psychosis, on Risperdal. 6. Status post respiratory failure, on BiPAP. 7. History of coronary artery disease. 8. Paranoid schizophrenia. Thank you very much, Dr. Mendoza, for allowing me to participate in the care of this patient. Please do not hesitate to contact me if you have any questions regarding my evaluation. Sincerely, Yohan Milian M.D. DR: ALLEN JOB#: [id number] CC:
--- NOTE | 2018-08-01 02:09 | NUR ---
NURSE NOTES: Pt asleep, breathing even and unlabored on 4 L via NC, no s/sx of pain nor any discomfort at this time. A-fib/A-flutter at monitoring manager. Bed at lowest position, call light within reach. Will continue to monitor.
[2018-08-01 04:00] VITALS: BP 120/48
--- NOTE | 2018-08-01 07:05 | NUR ---
HAND-OFF: Report given to CHARLETTE Kern. Endorsed plan of care.
--- NOTE | 2018-08-01 07:08 | NUR ---
NURSE NOTES: Report received from Lenore OVALLES. Pt is resting in bed, sleeping in stable condition. Pt is on 4 liter Nasal Cannula and breathing is even and unlabored. No acute distress noted at this time. Bed placed in lowest position with brake engaged, side rails up x2, and bed alarm on. Call light and side table placed within reach. Will continue to monitor.
[2018-08-01 08:00] VITALS: BP 111/56
[2018-08-01] MEDS: Eliquis 2.5mg tablet ORAL SCH ×2 (08:35→17:05)
[2018-08-01 08:38] LABS: BASOPHILS % (AUTO) 2.1 % (0.0-2.0); EOSINOPHILS % (AUTO) 4.6 % (0.0-3.0); HEMATOCRIT 32.3 % (37.0-47.0); HEMOGLOBIN 10.1 G/DL (12.0-16.0); LYMPHOCYTES % (AUTO) 13.4 % (20.0-45.0); MEAN CORPUSCULAR VOLUME 85 FL (80-99); PLATELET COUNT 150 K/UL (150-450); RED CELL DISTRIBUTION WIDTH 18.6 % (11.6-14.8); WHITE BLOOD COUNT 6.8 K/UL (4.8-10.8)
[2018-08-01 09:20] LABS: ALANINE AMINOTRANSFERASE 14 U/L (12-78); ALBUMIN 2.8 G/DL (3.4-5.0); ALBUMIN/GLOBULIN RATIO 0.9 (1.0-2.7); ALKALINE PHOSPHATASE 56 U/L (46-116); ANION GAP 0 mmol/L (5-15); ASPARTATE AMINO TRANSFERASE 11 U/L (15-37); BILIRUBIN,TOTAL 0.4 MG/DL (0.2-1.0); BLOOD UREA NITROGEN 10 mg/dL (7-18); CALCIUM 8.7 MG/DL (8.5-10.1); CHLORIDE 94 MMOL/L (98-107); CREATININE 0.5 MG/DL (0.55-1.30); PHOSPHORUS 5.1 MG/DL (2.5-4.9); POTASSIUM 3.4 MMOL/L (3.5-5.1); SODIUM 138 MMOL/L (136-145)
[2018-08-01 09:28] LABS: CARBON DIOXIDE 44 MMOL/L (21-32)
--- NOTE | 2018-08-01 10:16 | Infectious Diseases Prog Note ---
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/2018, s/p Rx SP VDRF, 04/10 Sp extubated Legionella Ur Ag: Neg, Legionella IgM + / IgG - Scx: No sig growth Flu screen negative Atrial flutter dCHF COPD CAD s/p stents Hypertension Seizure disorder Schizophrenia Depression History of intraventricular pacemaker implantation GERD CVA/TIA b/l hip replacement hx of L DVT history of alcohol abuse hx of recurrent admissions hx of high grade CONS bacteremia (JIMY neg 09/2017) -also on 05/2018 [facility] resident Plan: -Continue empiric IV Vancomycin # 4 for CONS bacteremia -f/u repeat Bcx x2 -May need JIMY (given recurrent CONS bacteremia and presence of PPM) -f/u cx -Monitor CBC/CMP, temperatures - 08/01 Called Micro lab to speciate the CoNS in the recent blood Cx (in the past pt had Staph hominis) Subjective Allergies: Coded Allergies: PIPERACILLIN (Unverified Allergy, Unknown, 05/21/18) tolerates cephalosporins TAZOBACTAM (Unverified Allergy, Unknown, 03/10/18) Subjective comfortable Afebrile Objective Vital Signs Last 24 Hour Vital Signs Date Time Temp Pulse Resp B/P (MAP) Pulse Ox O2 Delivery O2 Flow Rate FiO2 08/01/18 08:00 96.7 70 18 111/56 (74) 99 08/01/18 04:00 79 08/01/18 04:00 96.8 79 18 120/48 (72) 96 08/01/18 00:00 79 08/01/18 00:00 98.5 77 18 122/52 (75) 96 07/31/18 21:00 Room Air 3.0 07/31/18 20:00 99.5 79 20 124/47 (72) 98 07/31/18 20:00 79 07/31/18 19:32 Nasal Cannula 3.0 32 07/31/18 19:32 83 20 Nasal Cannula 3.0 32 07/31/18 19:32 98 Nasal Cannula 3.0 32 07/31/18 16:00 76 07/31/18 16:00 97.9 77 20 150/94 (112) 98 07/31/18 12:00 Room Air 3.0 07/31/18 12:00 98.8 81 27 120/56 (77) 98 07/31/18 11:34 79 Height (Feet): 5 Height (Inches): 4.00 Weight (Pounds): 177 HEENT: mucous membranes moist Respiratory/Chest: lungs clear Cardiovascular: regular rhythm Abdomen: soft, non tender Microbiology Date/Time Source Procedure Growth Status 07/29/18 16:00 Blood Blood Culture - Preliminary NO GROWTH AFTER 48 HOURS Resulted 07/29/18 15:45 Blood Blood Culture - Preliminary NO GROWTH AFTER 48 HOURS Resulted Laboratory Tests Test 08/01/18 05:45 White Blood Count 6.8 K/UL (4.8-10.8) Red Blood Count 3.80 M/UL (4.20-5.40) L Hemoglobin 10.1 G/DL (12.0-16.0) L Hematocrit 32.3 % (37.0-47.0) L Mean Corpuscular Volume 85 FL (80-99) Mean Corpuscular Hemoglobin 26.5 PG (27.0-31.0) L Mean Corpuscular Hemoglobin Concent 31.2 G/DL (32.0-36.0) L Red Cell Distribution Width 18.6 % (11.6-14.8) H Platelet Count 150 K/UL (150-450) Mean Platelet Volume 6.7 FL (6.5-10.1) Neutrophils (%) (Auto) 68.0 % (45.0-75.0) Lymphocytes (%) (Auto) 13.4 % (20.0-45.0) L Monocytes (%) (Auto) 12.0 % (1.0-10.0) H Eosinophils (%) (Auto) 4.6 % (0.0-3.0) H Basophils (%) (Auto) 2.1 % (0.0-2.0) H Sodium Level 138 MMOL/L (136-145) Potassium Level 3.4 MMOL/L (3.5-5.1) L Chloride Level 94 MMOL/L (98-107) L Carbon Dioxide Level 44 MMOL/L (21-32) *H Anion Gap 0 mmol/L (5-15) L Blood Urea Nitrogen 10 mg/dL (7-18) Creatinine 0.5 MG/DL (0.55-1.30) L Estimat Glomerular Filtration Rate mL/min (>60) Glucose Level 96 MG/DL (74-106) Calcium Level 8.7 MG/DL (8.5-10.1) Phosphorus Level 5.1 MG/DL (2.5-4.9) H Magnesium Level 1.8 MG/DL (1.8-2.4) Total Bilirubin 0.4 MG/DL (0.2-1.0) Aspartate Amino Transf (AST/SGOT) 11 U/L (15-37) L Alanine Aminotransferase (ALT/SGPT) 14 U/L (12-78) Alkaline Phosphatase 56 U/L (46-116) Total Protein 5.9 G/DL (6.4-8.2) L Albumin 2.8 G/DL (3.4-5.0) L Globulin 3.1 g/dL Albumin/Globulin Ratio 0.9 (1.0-2.7) L Current Medications Medications (Trade) Dose Ordered Sig/Ibrahima Route PRN Reason Start Time Stop Time Status Last Admin Dose Admin Acetaminophen (Tylenol) 650 mg Q4H PRN ORAL Fever (temp>100.5F) 07/31/18 15:00 08/27/18 14:59 Albuterol/ Ipratropium (Albuterol/ Ipratropium) 3 ml Q4H PRN HHN Shortness of Breath 07/31/18 15:00 08/02/18 14:59 Apixaban (Eliquis) 5 mg BID ORAL 07/31/18 18:00 08/27/18 17:59 08/01/18 08:35 Dextrose (Dextrose 50%) 25 ml Q30M PRN IV Hypoglycemia 07/31/18 14:45 08/27/18 10:44 Dextrose (Dextrose 50%) 50 ml Q30M PRN IV Hypoglycemia 07/31/18 14:45 08/27/18 10:44 Furosemide (Lasix) 40 mg EVERY 12 HOURS ORAL 08/01/18 09:00 08/31/18 08:59 08/01/18 08:35 Guaifenesin/ Dextromethorphan (Robitussin DM Syrup) 10 ml Q4H PRN ORAL For Cough 07/31/18 15:15 08/30/18 15:14 Haloperidol Lactate (Haldol) 5 mg Q6H PRN IM Agitation 07/31/18 15:00 08/27/18 14:59 Ondansetron HCl (Zofran) 4 mg Q6H PRN IVP Nausea & Vomiting 07/31/18 16:00 08/27/18 15:48 Polyethylene Glycol (Miralax) 17 gm DAILYPRN PRN ORAL Constipation 07/31/18 16:00 08/27/18 15:48 Potassium Chloride 100 ml @ 100 mls/hr Q1HR IVPB 08/01/18 10:00 08/01/18 13:59 08/01/18 09:55 Risperidone (RisperDAL) 1 mg BEDTIME ORAL 07/31/18 21:00 08/27/18 20:59 07/31/18 20:31 Temazepam (Restoril) 15 mg HSPRN PRN ORAL Insomnia 07/31/18 21:00 08/04/18 20:59 07/31/18 22:59 Vancomycin HCl (Vanco rx to dose) 1 ea DAILY PRN MISC Per rx protocol 07/31/18 15:00 08/30/18 14:59 Vancomycin HCl/ Dextrose 275 ml @ 183.333 mls/hr Q24H IVPB 07/31/18 21:00 08/05/18 20:59 07/31/18 21:23 Jaun Moeller MD Aug 01, 2018 10:16
--- NOTE | 2018-08-01 10:30 | NUR ---
NURSE NOTES: Patient is resting in stable condition, her diet changed to soft easy chew, she likes it much better. I changed the pure wick, a small blister noted on right upper extremities, the are cleaned and vesicle covered with Transparent film dressing. patient medicated per Dr. rand's order for low potassium level.
--- NOTE | 2018-08-01 11:10 | Pulmonology Progress Note ---
Assessment/Plan Problems: (1) Respiratory failure, acute (2) Acute diastolic CHF (congestive heart failure) (3) Pulmonary edema (4) Atrial flutter (5) CAD (coronary artery disease) (6) Pacemaker (7) Major depression (8) Wheelchair bound (9) Paranoid schizophrenia Assessment/Plan cxr reviewed, retrocardiac infiltrate on nasal cannula continue diuretics check electrolytes K supplement all reviewed continue antidepressant echo reviewed check CXR and decrease lasix once the bun/creatinine started to rise. dvt prophylaxis. Subjective ROS Limited/Unobtainable: No Constitutional: Reports: no symptoms HEENT: Repors: no symptoms Respiratory: Reports: no symptoms Allergies: Coded Allergies: PIPERACILLIN (Unverified Allergy, Unknown, 05/21/18) tolerates cephalosporins TAZOBACTAM (Unverified Allergy, Unknown, 03/10/18) Objective Last 24 Hour Vital Signs Date Time Temp Pulse Resp B/P (MAP) Pulse Ox O2 Delivery O2 Flow Rate FiO2 08/01/18 09:00 Room Air 3.0 08/01/18 08:00 96.7 70 18 111/56 (74) 99 08/01/18 08:00 72 08/01/18 04:00 79 08/01/18 04:00 96.8 79 18 120/48 (72) 96 08/01/18 00:00 79 08/01/18 00:00 98.5 77 18 122/52 (75) 96 07/31/18 21:00 Room Air 3.0 07/31/18 20:00 99.5 79 20 124/47 (72) 98 07/31/18 20:00 79 07/31/18 19:32 Nasal Cannula 3.0 32 07/31/18 19:32 83 20 Nasal Cannula 3.0 32 07/31/18 19:32 98 Nasal Cannula 3.0 32 07/31/18 16:00 76 07/31/18 16:00 97.9 77 20 150/94 (112) 98 07/31/18 12:00 Room Air 3.0 07/31/18 12:00 98.8 81 27 120/56 (77) 98 07/31/18 11:34 79 Intake and Output 07/31/18 08/01/18 19:00 07:00 Intake Total 550 ml 515 ml Output Total 1100 ml 300 ml Balance -550 ml 215 ml Intake Oral 550 ml 240 ml IV Total 275 ml Output Urine Total 1100 ml 300 ml General Appearance: WD/WN HEENT: normocephalic Respiratory/Chest: chest wall non-tender, lungs clear Breasts: no masses Cardiovascular: normal peripheral pulses Abdomen: soft, non tender, no organomegaly Genitourinary: normal external genitalia Extremities: no cyanosis Neurologic/Psychiatric: platform man II-XII grossly normal Lymphatic: no neck adenopathy Microbiology Date/Time Source Procedure Growth Status 07/29/18 16:00 Blood Blood Culture - Preliminary NO GROWTH AFTER 48 HOURS Resulted 07/29/18 15:45 Blood Blood Culture - Preliminary NO GROWTH AFTER 48 HOURS Resulted Laboratory Tests 08/01/18 05:45: White Blood Count 6.8, Red Blood Count 3.80L, Hemoglobin 10.1L, Hematocrit 32.3L , Mean Corpuscular Volume 85, Mean Corpuscular Hemoglobin 26.5L, Mean Corpuscular Hemoglobin Concent 31.2L, Red Cell Distribution Width 18.6H, Platelet Count 150, Mean Platelet Volume 6.7, Neutrophils (%) (Auto) 68.0, Lymphocytes (%) (Auto) 13.4L, Monocytes (%) (Auto) 12.0H, Eosinophils (%) (Auto ) 4.6H, Basophils (%) (Auto) 2.1H, Sodium Level 138, Potassium Level 3.4L, Chloride Level 94L, Carbon Dioxide Level 44*H, Anion Gap 0L, Blood Urea Nitrogen 10, Creatinine 0.5L, Estimat Glomerular Filtration Rate , Glucose Level 96, Calcium Level 8.7, Phosphorus Level 5.1H, Magnesium Level 1.8, Total Bilirubin 0.4, Aspartate Amino Transf (AST/SGOT) 11L, Alanine Aminotransferase ( ALT/SGPT) 14, Alkaline Phosphatase 56, Total Protein 5.9L, Albumin 2.8L, Globulin 3.1, Albumin/Globulin Ratio 0.9L Current Medications Medications (Trade) Dose Ordered Sig/Ibrahima Route PRN Reason Start Time Stop Time Status Last Admin Dose Admin Acetaminophen (Tylenol) 650 mg Q4H PRN ORAL Fever (temp>100.5F) 07/31/18 15:00 08/27/18 14:59 08/01/18 10:24 Albuterol/ Ipratropium (Albuterol/ Ipratropium) 3 ml Q4H PRN HHN Shortness of Breath 07/31/18 15:00 08/02/18 14:59 Apixaban (Eliquis) 5 mg BID ORAL 07/31/18 18:00 08/27/18 17:59 08/01/18 08:35 Dextrose (Dextrose 50%) 25 ml Q30M PRN IV Hypoglycemia 07/31/18 14:45 08/27/18 10:44 Dextrose (Dextrose 50%) 50 ml Q30M PRN IV Hypoglycemia 07/31/18 14:45 08/27/18 10:44 Furosemide (Lasix) 40 mg EVERY 12 HOURS ORAL 08/01/18 09:00 08/31/18 08:59 08/01/18 08:35 Guaifenesin/ Dextromethorphan (Robitussin DM Syrup) 10 ml Q4H PRN ORAL For Cough 07/31/18 15:15 08/30/18 15:14 Haloperidol Lactate (Haldol) 5 mg Q6H PRN IM Agitation 07/31/18 15:00 08/27/18 14:59 Ondansetron HCl (Zofran) 4 mg Q6H PRN IVP Nausea & Vomiting 07/31/18 16:00 08/27/18 15:48 Polyethylene Glycol (Miralax) 17 gm DAILYPRN PRN ORAL Constipation 07/31/18 16:00 08/27/18 15:48 Potassium Chloride (K-Dur) 40 meq ONCE ORAL 08/01/18 10:45 08/01/18 12:30 08/01/18 10:49 Risperidone (RisperDAL) 1 mg BEDTIME ORAL 07/31/18 21:00 08/27/18 20:59 07/31/18 20:31 Temazepam (Restoril) 15 mg HSPRN PRN ORAL Insomnia 07/31/18 21:00 08/04/18 20:59 07/31/18 22:59 Vancomycin HCl (Vanco rx to dose) 1 ea DAILY PRN MISC Per rx protocol 07/31/18 15:00 08/30/18 14:59 Vancomycin HCl/ Dextrose 275 ml @ 183.333 mls/hr Q24H IVPB 07/31/18 21:00 08/05/18 20:59 07/31/18 21:23 Mendel Sierra MD Aug 01, 2018 11:10
[2018-08-01 12:00] VITALS: BP 115/59
[2018-08-01] MEDS: Guaifenesin/DM 10ml syrup ORAL PRN (14:01)
--- NOTE | 2018-08-01 15:23 | Cardiac Electrophysiology PN ---
Assessment/Plan Assessment/Plan 1. Chronic atrial flutter. The rate is currently controlled despite being off of any AV yumi blocking agents. The patient will be on anticoagulation with Eliquis 5 mg b.i.d. 2. Status post leadless Medtronic pacemaker implantation in 2016. This is functioning normally. V paced only in the ventricle as it is an intra right ventricular pacemaker. 3. Diastolic dysfunction and congestive heart failure, on Lasix 40 mg IV every eight hours. 4. Sepsis, on IV antibiotics. 5. History of psychosis, on Risperdal. 6. Status post respiratory failure, on BiPAP. 7. History of coronary artery disease. 8. Paranoid schizophrenia. DW RN Subjective Subjective Remained V Paced. in Atrial fib Objective Last 24 Hour Vital Signs Date Time Temp Pulse Resp B/P (MAP) Pulse Ox O2 Delivery O2 Flow Rate FiO2 08/01/18 12:00 96.2 66 18 115/59 (77) 100 08/01/18 12:00 73 08/01/18 09:00 Room Air 3.0 08/01/18 08:00 96.7 70 18 111/56 (74) 99 08/01/18 08:00 72 08/01/18 04:00 79 08/01/18 04:00 96.8 79 18 120/48 (72) 96 08/01/18 00:00 79 08/01/18 00:00 98.5 77 18 122/52 (75) 96 07/31/18 21:00 Room Air 3.0 07/31/18 20:00 99.5 79 20 124/47 (72) 98 07/31/18 20:00 79 07/31/18 19:32 Nasal Cannula 3.0 32 07/31/18 19:32 83 20 Nasal Cannula 3.0 32 07/31/18 19:32 98 Nasal Cannula 3.0 32 07/31/18 16:00 76 07/31/18 16:00 97.9 77 20 150/94 (112) 98 Intake and Output 07/31/18 08/01/18 19:00 07:00 Intake Total 550 ml 515 ml Output Total 1100 ml 300 ml Balance -550 ml 215 ml Intake Oral 550 ml 240 ml IV Total 275 ml Output Urine Total 1100 ml 300 ml Laboratory Tests Test 08/01/18 05:45 White Blood Count 6.8 K/UL (4.8-10.8) Red Blood Count 3.80 M/UL (4.20-5.40) L Hemoglobin 10.1 G/DL (12.0-16.0) L Hematocrit 32.3 % (37.0-47.0) L Mean Corpuscular Volume 85 FL (80-99) Mean Corpuscular Hemoglobin 26.5 PG (27.0-31.0) L Mean Corpuscular Hemoglobin Concent 31.2 G/DL (32.0-36.0) L Red Cell Distribution Width 18.6 % (11.6-14.8) H Platelet Count 150 K/UL (150-450) Mean Platelet Volume 6.7 FL (6.5-10.1) Neutrophils (%) (Auto) 68.0 % (45.0-75.0) Lymphocytes (%) (Auto) 13.4 % (20.0-45.0) L Monocytes (%) (Auto) 12.0 % (1.0-10.0) H Eosinophils (%) (Auto) 4.6 % (0.0-3.0) H Basophils (%) (Auto) 2.1 % (0.0-2.0) H Sodium Level 138 MMOL/L (136-145) Potassium Level 3.4 MMOL/L (3.5-5.1) L Chloride Level 94 MMOL/L (98-107) L Carbon Dioxide Level 44 MMOL/L (21-32) *H Anion Gap 0 mmol/L (5-15) L Blood Urea Nitrogen 10 mg/dL (7-18) Creatinine 0.5 MG/DL (0.55-1.30) L Estimat Glomerular Filtration Rate mL/min (>60) Glucose Level 96 MG/DL (74-106) Calcium Level 8.7 MG/DL (8.5-10.1) Phosphorus Level 5.1 MG/DL (2.5-4.9) H Magnesium Level 1.8 MG/DL (1.8-2.4) Total Bilirubin 0.4 MG/DL (0.2-1.0) Aspartate Amino Transf (AST/SGOT) 11 U/L (15-37) L Alanine Aminotransferase (ALT/SGPT) 14 U/L (12-78) Alkaline Phosphatase 56 U/L (46-116) Total Protein 5.9 G/DL (6.4-8.2) L Albumin 2.8 G/DL (3.4-5.0) L Globulin 3.1 g/dL Albumin/Globulin Ratio 0.9 (1.0-2.7) L Microbiology Date/Time Source Procedure Growth Status 07/29/18 16:00 Blood Blood Culture - Preliminary NO GROWTH AFTER 48 HOURS Resulted 07/29/18 15:45 Blood Blood Culture - Preliminary NO GROWTH AFTER 48 HOURS Resulted Objective HEAD AND NECK: Showed no JVD. LUNGS: Decreased breath sounds. CARDIOVASCULAR: Shows regular S1 and S2 with no gallop. ABDOMEN: Soft. EXTREMITIES: 1+ pitting edema. Yohan Milian MD Aug 01, 2018 15:23
[2018-08-01 16:00] VITALS: BP 102/66
--- NOTE | 2018-08-01 16:27 | Internal Med Progress Note ---
Subjective Date of Service: Aug 01, 2018 Physician Name Juan Dutta Attending Physician Yonathan Mendoza MD Current Medications Medications (Trade) Dose Ordered Sig/Ibrahima Route PRN Reason Start Time Stop Time Status Last Admin Dose Admin Acetaminophen (Tylenol) 650 mg Q4H PRN ORAL Fever (temp>100.5F) 07/31/18 15:00 08/27/18 14:59 08/01/18 10:24 Albuterol/ Ipratropium (Albuterol/ Ipratropium) 3 ml Q4H PRN HHN Shortness of Breath 07/31/18 15:00 08/02/18 14:59 Apixaban (Eliquis) 5 mg BID ORAL 07/31/18 18:00 08/27/18 17:59 08/01/18 08:35 Dextrose (Dextrose 50%) 25 ml Q30M PRN IV Hypoglycemia 07/31/18 14:45 08/27/18 10:44 Dextrose (Dextrose 50%) 50 ml Q30M PRN IV Hypoglycemia 07/31/18 14:45 08/27/18 10:44 Furosemide (Lasix) 40 mg EVERY 12 HOURS ORAL 08/01/18 09:00 08/31/18 08:59 08/01/18 08:35 Guaifenesin/ Dextromethorphan (Robitussin DM Syrup) 10 ml Q4H PRN ORAL For Cough 07/31/18 15:15 08/30/18 15:14 08/01/18 14:01 Haloperidol Lactate (Haldol) 5 mg Q6H PRN IM Agitation 07/31/18 15:00 08/27/18 14:59 Ondansetron HCl (Zofran) 4 mg Q6H PRN IVP Nausea & Vomiting 07/31/18 16:00 08/27/18 15:48 Polyethylene Glycol (Miralax) 17 gm DAILYPRN PRN ORAL Constipation 07/31/18 16:00 08/27/18 15:48 Risperidone (RisperDAL) 1 mg BEDTIME ORAL 07/31/18 21:00 08/27/18 20:59 07/31/18 20:31 Temazepam (Restoril) 15 mg HSPRN PRN ORAL Insomnia 07/31/18 21:00 08/04/18 20:59 07/31/18 22:59 Vancomycin HCl (Vanco rx to dose) 1 ea DAILY PRN MISC Per rx protocol 07/31/18 15:00 08/30/18 14:59 Vancomycin HCl/ Dextrose 275 ml @ 183.333 mls/hr Q24H IVPB 07/31/18 21:00 08/05/18 20:59 07/31/18 21:23 Allergies: Coded Allergies: PIPERACILLIN (Unverified Allergy, Unknown, 05/21/18) tolerates cephalosporins TAZOBACTAM (Unverified Allergy, Unknown, 03/10/18) ROS Limited/Unobtainable: No Constitutional: Reports: no symptoms HEENT: Reports: no symptoms Cardiovascular: Reports: no symptoms Respiratory: Reports: no symptoms Gastrointestinal/Abdominal: Reports: no symptoms Genitourinary: Reports: no symptoms Neurologic/Psychiatric: Reports: no symptoms Subjective 77 YO F admitted with hypoxia and altered mental status. Now sepsis. Cover for Int Med-Dr Mendoza. Tolerating nasal canula Objective Last Vital Signs Date Time Temp Pulse Resp B/P (MAP) Pulse Ox O2 Delivery O2 Flow Rate FiO2 08/01/18 16:05 75 20 Nasal Cannula 4.0 36 08/01/18 16:05 97 08/01/18 16:00 98.1 102/66 (78) Laboratory Tests Test 08/01/18 05:45 White Blood Count 6.8 K/UL (4.8-10.8) Red Blood Count 3.80 M/UL (4.20-5.40) L Hemoglobin 10.1 G/DL (12.0-16.0) L Hematocrit 32.3 % (37.0-47.0) L Mean Corpuscular Volume 85 FL (80-99) Mean Corpuscular Hemoglobin 26.5 PG (27.0-31.0) L Mean Corpuscular Hemoglobin Concent 31.2 G/DL (32.0-36.0) L Red Cell Distribution Width 18.6 % (11.6-14.8) H Platelet Count 150 K/UL (150-450) Mean Platelet Volume 6.7 FL (6.5-10.1) Neutrophils (%) (Auto) 68.0 % (45.0-75.0) Lymphocytes (%) (Auto) 13.4 % (20.0-45.0) L Monocytes (%) (Auto) 12.0 % (1.0-10.0) H Eosinophils (%) (Auto) 4.6 % (0.0-3.0) H Basophils (%) (Auto) 2.1 % (0.0-2.0) H Sodium Level 138 MMOL/L (136-145) Potassium Level 3.4 MMOL/L (3.5-5.1) L Chloride Level 94 MMOL/L (98-107) L Carbon Dioxide Level 44 MMOL/L (21-32) *H Anion Gap 0 mmol/L (5-15) L Blood Urea Nitrogen 10 mg/dL (7-18) Creatinine 0.5 MG/DL (0.55-1.30) L Estimat Glomerular Filtration Rate mL/min (>60) Glucose Level 96 MG/DL (74-106) Calcium Level 8.7 MG/DL (8.5-10.1) Phosphorus Level 5.1 MG/DL (2.5-4.9) H Magnesium Level 1.8 MG/DL (1.8-2.4) Total Bilirubin 0.4 MG/DL (0.2-1.0) Aspartate Amino Transf (AST/SGOT) 11 U/L (15-37) L Alanine Aminotransferase (ALT/SGPT) 14 U/L (12-78) Alkaline Phosphatase 56 U/L (46-116) Total Protein 5.9 G/DL (6.4-8.2) L Albumin 2.8 G/DL (3.4-5.0) L Globulin 3.1 g/dL Albumin/Globulin Ratio 0.9 (1.0-2.7) L Intake and Output 07/31/18 08/01/18 19:00 07:00 Intake Total 550 ml 515 ml Output Total 1100 ml 300 ml Balance -550 ml 215 ml Intake Oral 550 ml 240 ml IV Total 275 ml Output Urine Total 1100 ml 300 ml Objective PHYSICAL EXAMINATION: GENERAL: The patient is a well-developed and well-nourished white female, in no apparent distress. HEENT: Eyes, pupils are equal and responsive to light and accommodation. Extraocular movements are intact. NECK: Supple without lymphadenopathy. CHEST: Venturi mask; Lungs are clear to auscultation bilaterally without wheezes or rales. CARDIOVASCULAR: Regular rate, S1 and S2 normal without murmurs, rubs, or gallops. ABDOMEN: Soft, nontender, and nondistended. Positive bowel sounds. No evidence of hepatosplenomegaly. Currently, no rebound or guarding noted. EXTREMITIES: Negative for clubbing, cyanosis, or edema. RECTAL/GENITAL: Refused. NEUROLOGIC: Cranial nerves II through XII are grossly intact without focal deficits. Motor strength is 5/5 bilaterally. Deep tendon reflexes are 2+ plantar. Assessment/Plan Problem List: (1) CHF (congestive heart failure) Assessment & Plan: See cardiology note. (2) Altered mental status (3) Hypoxia (4) Respiratory distress Assessment & Plan: tolerating nasal canula. See pulmonary note. (5) Sepsis Assessment & Plan: Coag neg staph. See ID consult-continue vanco. echocardiogram=no vegitations; may require JIMY (6) Atrial flutter Assessment & Plan: Continue eliquis (7) HTN (hypertension) (8) COPD (chronic obstructive pulmonary disease) (9) Pacemaker (10) Paranoid schizophrenia (11) Seizure disorder (12) CAD (coronary artery disease) Juan Dutta MD Aug 01, 2018 16:27
--- NOTE | 2018-08-01 19:00 | NUR ---
NURSE NOTES: received pt in stable condition, no s/s of acute distress or pain noted. safety precaution in place will continue to monitor.
--- NOTE | 2018-08-01 19:35 | NUR ---
HAND-OFF: Report given to CHARLETTE Valente.
[2018-08-01 20:00] VITALS: BP 132/52
[2018-08-01] MEDS: Vancomycin 1.25gm Premix IVPB SCH (20:43)
[2018-08-02] VITALS: BP 118/56
--- NOTE | 2018-08-02 03:00 | NUR ---
NURSE NOTES: pt in bed sleeping comfortable, safety precautions in place, no s/s of acute distress or pain noted. will continue hourly rounding to monitor pt
[2018-08-02 04:00] VITALS: BP 129/75
--- NOTE | 2018-08-02 06:33 | NUR ---
NURSE NOTES: pt sleeping, no acute distress during my shift, all needs met during my shift will endorse pt to incoming nurse
--- NOTE | 2018-08-02 07:11 | NUR ---
HAND-OFF: Report given to CHARLETTE Kern.
--- NOTE | 2018-08-02 07:15 | NUR ---
NURSE NOTES: Report received from Nikolai Zapata RN. Pt is resting in bed, sleeping in stable condition. Pt is on 4 liter Nasal Cannula and breathing is even and unlabored. No acute distress noted at this time. Bed placed in lowest position with brake engaged, side rails up x2, and bed alarm on. Call light and side table placed within reach. Will continue to monitor and follow plan of care.
[2018-08-02 08:00] VITALS: BP 108/58
[2018-08-02 08:21] LABS: BASOPHILS % (AUTO) 1.8 % (0.0-2.0); HEMATOCRIT 31.7 % (37.0-47.0); HEMOGLOBIN 9.7 G/DL (12.0-16.0); MEAN CORPUSCULAR VOLUME 86 FL (80-99); MONOCYTES % (AUTO) 9.9 % (1.0-10.0); NEUTROPHILS % (AUTO) 68.3 % (45.0-75.0); PLATELET COUNT 141 K/UL (150-450); RED BLOOD COUNT 3.67 M/UL (4.20-5.40); RED CELL DISTRIBUTION WIDTH 18.7 % (11.6-14.8); WHITE BLOOD COUNT 6.5 K/UL (4.8-10.8)
[2018-08-02] MEDS: Eliquis 2.5mg tablet ORAL SCH ×2 (08:27→17:20)
[2018-08-02 09:35] LABS: ALANINE AMINOTRANSFERASE 11 U/L (12-78); ALBUMIN 2.7 G/DL (3.4-5.0); ALBUMIN/GLOBULIN RATIO 0.9 (1.0-2.7); ALKALINE PHOSPHATASE 52 U/L (46-116); ASPARTATE AMINO TRANSFERASE 18 U/L (15-37); BILIRUBIN,TOTAL 0.3 MG/DL (0.2-1.0); BLOOD UREA NITROGEN 7 mg/dL (7-18); CALCIUM 8.5 MG/DL (8.5-10.1); CREATININE 0.5 MG/DL (0.55-1.30); PHOSPHORUS 4.5 MG/DL (2.5-4.9); POTASSIUM 4.1 MMOL/L (3.5-5.1)
[2018-08-02 09:51] LABS: ANION GAP 4 mmol/L (5-15); CARBON DIOXIDE 40 MMOL/L (21-32); CHLORIDE 95 MMOL/L (98-107); SODIUM 139 MMOL/L (136-145)
--- NOTE | 2018-08-02 09:53 | NUR ---
CASE MANAGEMENT: REVIEW 08/02/2018 SI:ACUTE CHF T 98.6 HR 77 RR 18 B/P 108/58 SATS 97% ON 4L/NC CMP: PENDING IS: LASIX PO Q12H RISPERDAL PO QHS ELIQUIS PO BID VANCO IV Q24H TELE STATUS DCP: PATIENT TO BE DISCHARGED TO SNF ONCE MEDICALLY CLEARED. PLAN OF CARE: CHEST PHYSIOTHERAPY DIURESIS
[2018-08-02] MEDS ORDERED: Tubing IV Secondary IV ONE (11:33)
[2018-08-02] MEDS ORDERED: NS 275ml ONE (11:33)
[2018-08-02 12:00] VITALS: BP 116/51
[2018-08-02] MEDS: Guaifenesin/DM 10ml syrup ORAL PRN (13:32)
--- NOTE | 2018-08-02 14:20 | Pulmonology Progress Note ---
Assessment/Plan Problems: (1) Respiratory failure, acute (2) Acute diastolic CHF (congestive heart failure) (3) Pulmonary edema (4) Atrial flutter (5) CAD (coronary artery disease) (6) Pacemaker (7) Major depression (8) Wheelchair bound (9) Paranoid schizophrenia Assessment/Plan improving on nasal cannula continue diuretics check electrolytes K supplement all reviewed continue antidepressant echo reviewed check CXR and decrease lasix once the bun/creatinine started to rise. dvt prophylaxis. Subjective ROS Limited/Unobtainable: No Constitutional: Reports: no symptoms HEENT: Repors: no symptoms Allergies: Coded Allergies: PIPERACILLIN (Unverified Allergy, Unknown, 05/21/18) tolerates cephalosporins TAZOBACTAM (Unverified Allergy, Unknown, 03/10/18) Objective Last 24 Hour Vital Signs Date Time Temp Pulse Resp B/P (MAP) Pulse Ox O2 Delivery O2 Flow Rate FiO2 08/02/18 12:00 75 08/02/18 12:00 98.7 73 20 116/51 (72) 100 08/02/18 09:00 Nasal Cannula 3.0 08/02/18 08:00 98.6 77 18 108/58 (75) 97 08/02/18 08:00 72 08/02/18 07:03 75 20 Nasal Cannula 4.0 36 08/02/18 07:03 99 Nasal Cannula 4.0 36 08/02/18 07:03 Nasal Cannula 4.0 36 08/02/18 04:00 66 08/02/18 04:00 98.5 74 18 129/75 (93) 99 08/02/18 00:00 98.3 79 18 118/56 (76) 98 08/02/18 00:00 75 08/01/18 21:00 Nasal Cannula 3.0 08/01/18 20:00 98.9 79 18 132/52 (78) 99 08/01/18 20:00 81 08/01/18 16:05 75 20 Nasal Cannula 4.0 36 08/01/18 16:05 97 Nasal Cannula 4.0 36 08/01/18 16:05 Nasal Cannula 4.0 36 08/01/18 16:00 98.1 83 18 102/66 (78) 98 08/01/18 16:00 75 Intake and Output 08/01/18 08/02/18 19:00 07:00 Intake Total 800 ml 635 ml Output Total 425 ml Balance 375 ml 635 ml Intake Oral 800 ml 360 ml IV Total 275 ml Output Urine Total 425 ml # Voids 1 # Bowel Movements 1 Objective General Appearance: WD/WN HEENT: normocephalic, atraumatic Respiratory/Chest: chest wall non-tender, lungs clear Cardiovascular: normal peripheral pulses, regular rhythm Abdomen: normal bowel sounds, soft, non tender Genitourinary: normal external genitalia Skin: no rash 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 Lymphatic: no neck adenopathy Laboratory Tests 08/02/18 08:03: White Blood Count 6.5, Red Blood Count 3.67L, Hemoglobin 9.7L, Hematocrit 31.7L , Mean Corpuscular Volume 86, Mean Corpuscular Hemoglobin 26.3L, Mean Corpuscular Hemoglobin Concent 30.5L, Red Cell Distribution Width 18.7H, Platelet Count 141L, Mean Platelet Volume 7.5, Neutrophils (%) (Auto) 68.3, Lymphocytes (%) (Auto) 15.0L, Monocytes (%) (Auto) 9.9, Eosinophils (%) (Auto) 5.0H, Basophils (%) (Auto) 1.8, Erythrocyte Sedimentation Rate 19, Sodium Level 139, Potassium Level 4.1, Chloride Level 95L, Carbon Dioxide Level 40H, Anion Gap 4L, Blood Urea Nitrogen 7, Creatinine 0.5L, Estimat Glomerular Filtration Rate , Glucose Level 93, Calcium Level 8.5, Phosphorus Level 4.5, Magnesium Level 1.7L, Total Bilirubin 0.3, Aspartate Amino Transf (AST/SGOT) 18, Alanine Aminotransferase (ALT/SGPT) 11L, Alkaline Phosphatase 52, C-Reactive Protein, Quantitative 2.4H, Total Protein 5.8L, Albumin 2.7L, Globulin 3.1, Albumin/ Globulin Ratio 0.9L Current Medications Medications (Trade) Dose Ordered Sig/Ibrahima Route PRN Reason Start Time Stop Time Status Last Admin Dose Admin Acetaminophen (Tylenol) 650 mg Q4H PRN ORAL Fever (temp>100.5F) 07/31/18 15:00 08/27/18 14:59 08/01/18 10:24 Albuterol/ Ipratropium (Albuterol/ Ipratropium) 3 ml Q4H PRN HHN Shortness of Breath 07/31/18 15:00 08/02/18 14:59 Apixaban (Eliquis) 5 mg BID ORAL 07/31/18 18:00 08/27/18 17:59 08/02/18 08:27 Dextrose (Dextrose 50%) 25 ml Q30M PRN IV Hypoglycemia 07/31/18 14:45 08/27/18 10:44 Dextrose (Dextrose 50%) 50 ml Q30M PRN IV Hypoglycemia 07/31/18 14:45 08/27/18 10:44 Furosemide (Lasix) 40 mg EVERY 12 HOURS ORAL 08/01/18 09:00 08/31/18 08:59 08/02/18 08:27 Guaifenesin/ Dextromethorphan (Robitussin DM Syrup) 10 ml Q4H PRN ORAL For Cough 07/31/18 15:15 08/30/18 15:14 08/02/18 13:32 Haloperidol Lactate (Haldol) 5 mg Q6H PRN IM Agitation 07/31/18 15:00 08/27/18 14:59 Ondansetron HCl (Zofran) 4 mg Q6H PRN IVP Nausea & Vomiting 07/31/18 16:00 08/27/18 15:48 Polyethylene Glycol (Miralax) 17 gm DAILYPRN PRN ORAL Constipation 07/31/18 16:00 08/27/18 15:48 Risperidone (RisperDAL) 1 mg BEDTIME ORAL 07/31/18 21:00 08/27/18 20:59 08/01/18 20:42 Temazepam (Restoril) 15 mg HSPRN PRN ORAL Insomnia 07/31/18 21:00 08/04/18 20:59 07/31/18 22:59 Vancomycin HCl (Vanco rx to dose) 1 ea DAILY PRN MISC Per rx protocol 07/31/18 15:00 08/30/18 14:59 Vancomycin HCl/ Dextrose 275 ml @ 183.333 mls/hr Q24H IVPB 07/31/18 21:00 08/05/18 20:59 08/01/18 20:43 Mendel Sierra MD Aug 02, 2018 14:20
--- NOTE | 2018-08-02 15:05 | NUR ---
DISCHARGE DISPOSITION: PLEASE READ PATIENT TO BE DISCHARGED TO [facility] [address] T: [phone]>> CALL CHARLETTE ALCALA FOR REPORT [facility] ETA 1800 TRANSFER REPORT TO BE PROVIDED. Addendum: 08/02/18 at 1515 by Aure Castillo [facility] FAXED TO [facility]. CONFIRMATION PAGED OBTAINED.
--- NOTE | 2018-08-02 15:49 | Internal Med Progress Note ---
Subjective Date of Service: Aug 02, 2018 Physician Name Juan Dutta Attending Physician Yonathan Mendoza MD Current Medications Medications (Trade) Dose Ordered Sig/Ibrahima Route PRN Reason Start Time Stop Time Status Last Admin Dose Admin Acetaminophen (Tylenol) 650 mg Q4H PRN ORAL Fever (temp>100.5F) 07/31/18 15:00 08/27/18 14:59 08/01/18 10:24 Apixaban (Eliquis) 5 mg BID ORAL 07/31/18 18:00 08/27/18 17:59 08/02/18 08:27 Dextrose (Dextrose 50%) 25 ml Q30M PRN IV Hypoglycemia 07/31/18 14:45 08/27/18 10:44 Dextrose (Dextrose 50%) 50 ml Q30M PRN IV Hypoglycemia 07/31/18 14:45 08/27/18 10:44 Furosemide (Lasix) 40 mg EVERY 12 HOURS ORAL 08/01/18 09:00 08/31/18 08:59 08/02/18 08:27 Guaifenesin/ Dextromethorphan (Robitussin DM Syrup) 10 ml Q4H PRN ORAL For Cough 07/31/18 15:15 08/30/18 15:14 08/02/18 13:32 Haloperidol Lactate (Haldol) 5 mg Q6H PRN IM Agitation 07/31/18 15:00 08/27/18 14:59 Ondansetron HCl (Zofran) 4 mg Q6H PRN IVP Nausea & Vomiting 07/31/18 16:00 08/27/18 15:48 Polyethylene Glycol (Miralax) 17 gm DAILYPRN PRN ORAL Constipation 07/31/18 16:00 08/27/18 15:48 Risperidone (RisperDAL) 1 mg BEDTIME ORAL 07/31/18 21:00 08/27/18 20:59 08/01/18 20:42 Temazepam (Restoril) 15 mg HSPRN PRN ORAL Insomnia 07/31/18 21:00 08/04/18 20:59 07/31/18 22:59 Vancomycin HCl (Vanco rx to dose) 1 ea DAILY PRN MISC Per rx protocol 07/31/18 15:00 08/30/18 14:59 Vancomycin HCl/ Dextrose 275 ml @ 183.333 mls/hr Q24H IVPB 3/1/19 21:00 08/05/18 20:59 08/01/18 20:43 Allergies: Coded Allergies: PIPERACILLIN (Unverified Allergy, Unknown, 05/21/18) tolerates cephalosporins TAZOBACTAM (Unverified Allergy, Unknown, 03/10/18) ROS Limited/Unobtainable: Yes Subjective 77 YO F admitted with hypoxia and altered mental status. Now sepsis. Cover for Int Med-Dr Mendoza. Tolerating nasal canula Objective Last Vital Signs Date Time Temp Pulse Resp B/P (MAP) Pulse Ox O2 Delivery O2 Flow Rate FiO2 08/02/18 12:00 75 08/02/18 12:00 98.7 20 116/51 (72) 100 08/02/18 09:00 Nasal Cannula 3.0 08/02/18 07:03 36 Laboratory Tests Test 08/02/18 08:03 White Blood Count 6.5 K/UL (4.8-10.8) Red Blood Count 3.67 M/UL (4.20-5.40) L Hemoglobin 9.7 G/DL (12.0-16.0) L Hematocrit 31.7 % (37.0-47.0) L Mean Corpuscular Volume 86 FL (80-99) Mean Corpuscular Hemoglobin 26.3 PG (27.0-31.0) L Mean Corpuscular Hemoglobin Concent 30.5 G/DL (32.0-36.0) L Red Cell Distribution Width 18.7 % (11.6-14.8) H Platelet Count 141 K/UL (150-450) L Mean Platelet Volume 7.5 FL (6.5-10.1) Neutrophils (%) (Auto) 68.3 % (45.0-75.0) Lymphocytes (%) (Auto) 15.0 % (20.0-45.0) L Monocytes (%) (Auto) 9.9 % (1.0-10.0) Eosinophils (%) (Auto) 5.0 % (0.0-3.0) H Basophils (%) (Auto) 1.8 % (0.0-2.0) Erythrocyte Sedimentation Rate 19 MM/HR (0-30) Sodium Level 139 MMOL/L (136-145) Potassium Level 4.1 MMOL/L (3.5-5.1) Chloride Level 95 MMOL/L (98-107) L Carbon Dioxide Level 40 MMOL/L (21-32) H Anion Gap 4 mmol/L (5-15) L Blood Urea Nitrogen 7 mg/dL (7-18) Creatinine 0.5 MG/DL (0.55-1.30) L Estimat Glomerular Filtration Rate mL/min (>60) Glucose Level 93 MG/DL (74-106) Calcium Level 8.5 MG/DL (8.5-10.1) Phosphorus Level 4.5 MG/DL (2.5-4.9) Magnesium Level 1.7 MG/DL (1.8-2.4) L Total Bilirubin 0.3 MG/DL (0.2-1.0) Aspartate Amino Transf (AST/SGOT) 18 U/L (15-37) Alanine Aminotransferase (ALT/SGPT) 11 U/L (12-78) L Alkaline Phosphatase 52 U/L (46-116) C-Reactive Protein, Quantitative 2.4 mg/dL (0.00-0.90) H Total Protein 5.8 G/DL (6.4-8.2) L Albumin 2.7 G/DL (3.4-5.0) L Globulin 3.1 g/dL Albumin/Globulin Ratio 0.9 (1.0-2.7) L Intake and Output 08/01/18 08/02/18 19:00 07:00 Intake Total 800 ml 635 ml Output Total 425 ml Balance 375 ml 635 ml Intake Oral 800 ml 360 ml IV Total 275 ml Output Urine Total 425 ml # Voids 1 # Bowel Movements 1 Objective PHYSICAL EXAMINATION: GENERAL: The patient is a well-developed and well-nourished white female, in no apparent distress. HEENT: Eyes, pupils are equal and responsive to light and accommodation. Extraocular movements are intact. NECK: Supple without lymphadenopathy. CHEST: Venturi mask; Lungs are clear to auscultation bilaterally without wheezes or rales. CARDIOVASCULAR: Regular rate, S1 and S2 normal without murmurs, rubs, or gallops. ABDOMEN: Soft, nontender, and nondistended. Positive bowel sounds. No evidence of hepatosplenomegaly. Currently, no rebound or guarding noted. EXTREMITIES: Negative for clubbing, cyanosis, or edema. RECTAL/GENITAL: Refused. NEUROLOGIC: Cranial nerves II through XII are grossly intact without focal deficits. Motor strength is 5/5 bilaterally. Deep tendon reflexes are 2+ plantar. Assessment/Plan Problem List: (1) CHF (congestive heart failure) Assessment & Plan: See cardiology note. (2) Altered mental status (3) Hypoxia (4) Respiratory distress Assessment & Plan: tolerating nasal canula. See pulmonary note. (5) Sepsis Assessment & Plan: Coag neg staph. See ID consult-continue vanco. echocardiogram=no vegitations; may require JIMY (6) Atrial flutter Assessment & Plan: Continue eliquis (7) HTN (hypertension) (8) COPD (chronic obstructive pulmonary disease) (9) Pacemaker (10) Paranoid schizophrenia (11) Seizure disorder (12) CAD (coronary artery disease) Status: progressing Juan Dutta MD Aug 02, 2018 15:49
[2018-08-02 16:00] VITALS: BP 126/47
--- NOTE | 2018-08-02 16:00 | NUR ---
NURSE NOTES: [facility] Report given to CHARLETTE Foley.
--- NOTE | 2018-08-02 19:16 | NUR ---
HAND-OFF: Report given to CHARLETTE Valente.
--- NOTE | 2018-08-02 19:54 | NUR ---
NURSE NOTES: Report given to [facility] ambulance personnel, patient discharged in stable condition to [facility].
--- NOTE | 2018-08-04 08:43 | Discharge Summary ---
Discharge Summary Discharge Summary _ DATE OF ADMISSION: 07/28/2018 DATE OF DISCHARGE: 08/02/2018 DISCHARGED BY: Dr. Mendoza REASON FOR ADMISSION: 77 years old female with past medical history of hypertension, COPD, atrial flutter, permanent pacemaker, depression, schizophrenia, history of alcohol abuse, wheelchair-bound, ETOH abuse in the past, [facility] from the prison facility with chief complaint of dyspnea. Patient was found to have acute pulmonary edema. ABG revealed severe respiratory acidosis. Troponin was negative. EKG revealed atrial fibrillation with controlled ventricular response. Patient was started on BiPAP with some improvement in emergency department. Supplemental oxygen was changed to face mask , and she was subsequently admitted to telemetry floor for further management. CONSULTANTS: electrical test technician Dr. [place]o cardiac zoo keeper Dr. See pulmonary Dr. Sierra ID specialist Dr. Moeller psychiatrist plastic surgeon Dr. Dooley HOSPITAL COURSE: Patient admitted to monitored floor. Patient started on intravenous Lasix with close monitoring of volumes and cardiorenal parameters. Supplemental oxygen titrated to keep pulse oximetry above 92%. Respiratory treatment via hand-held nebulizing provided. Antitussive provided as needed. Venous duplex bilateral lower extremity revealed no evidence of acute DVT. Echocardiogram revealed preserved ejection fraction 55% with mild left ventricular hypertrophy. Aortic stenosis noted. Moderate mitral regurgitation. Right ventricular systolic pressure of 60 consistent with borderline severe pulmonary hypertension. Supply Chain Manager closely followed. Troponin rechecked x3, all were negative. Patient continued to be in atrial fibrillation, permanent, with controlled ventricular response. Anticoagulation with apixaban was continued. Patient was off any AV yumi blocking agent, but rate was controlled. Blood pressure was closely monitored and remained stable. Cardiorenal parameters were closely monitored. Pro BNP from 3014 down to 788. Follow-up chest x-ray revealed some improvement in congestion. Diuretics switched to oral. Patient was able to be weaned to oxygen via nasal cannula . CO2 trending down. Initial blood culture revealed Staph epidermidis. Echocardiogram revealed no evidence of obvious vegetation. 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 Antibiotic provided as per infectious disease specialist recommendation. Repeated blood culture from 07/29 were negative. Patient remained afebrile, no leukocytosis throughout the stay in the hospital. Psychiatrist followed. Psychiatric medication regimen was optimized as per psychiatrist recommendation. Per psychiatrist patient lacks capacity to make informed decision for herself. Plastic surgeon seen patient for pressure ulcer prevention. Recommendation provided as to how to avoid skin breakdown. Patient clinically improved and was ready for transfer back to prison facility for continuation of care. FINAL DIAGNOSES: Acute hypercapnic respiratory failure requiring BiPAP Acute diastolic congestive heart failure Pulmonary edema Gram-positive bacteremia Permanent atrial fibrillation Coronary artery disease History of permanent pacemaker implantation, leadless device COPD Pulmonary hypertension Mild to moderate mitral and aortic valvular disease Major depression Paranoid schizophrenia Encephalopathy due to metabolic factors DISCHARGE MEDICATIONS: See Medication Reconciliation list. DISCHARGE INSTRUCTIONS: Patient was discharged to the prison facility. Follow up with medical doctor at the facility. I have been assigned to dictate discharge summary for this account. I was not involved in the patient's management. Jazzy Campuzano NP Aug 04, 2018 08:42
== END 2018-08-02 20:05 | DRG 291 ==
LOC: EDBD 06:28 → EMR 07:16 → 2E 07:22 → EDBEDREQSVC 07:26 → EDBEDREQ 07:26 → EDBEDREQSVC 08:52 → EDBEDREQ 08:52 → 2W 15:20 → 2E 07-31 13:21
PROC: 5A09357 Assistance with Respiratory Ventilation, Less than 24 Consecutive Hours, Continuous Positive Airway Pressure (ICD-10-PCS; principal; 2018-07-29)
DX: I11.0 Hypertensive heart disease with heart failure (principal); I50.31 Acute diastolic (congestive) heart failure; J96.02 Acute respiratory failure with hypercapnia; G93.41 Metabolic encephalopathy; F20.0 Paranoid schizophrenia; I48.92 Unspecified atrial flutter; Z95.0 Presence of cardiac pacemaker; I48.2 Chronic atrial fibrillation; J44.9 Chronic obstructive pulmonary disease, unspecified; F32.9 Major depressive disorder, single episode, unspecified; Z88.1 Allergy status to other antibiotic agents; Z79.01 Long term (current) use of anticoagulants; Z99.3 Dependence on wheelchair; I25.10 Atherosclerotic heart disease of native coronary artery without angina pectoris; K21.9 Gastro-esophageal reflux disease without esophagitis; Z87.891 Personal history of nicotine dependence; F03.90 Unspecified dementia, unspecified severity, without behavioral disturbance, psychotic disturbance, mood disturbance, and anxiety; Z95.5 Presence of coronary angioplasty implant and graft; Z86.73 Personal history of transient ischemic attack (TIA), and cerebral infarction without residual deficits; Z96.643 Presence of artificial hip joint, bilateral; I34.0 Nonrheumatic mitral (valve) insufficiency; I35.0 Nonrheumatic aortic (valve) stenosis; Z66 Do not resuscitate
CPT/HCPCS: 36415; 36600; 71045; 80053; 80069; 80202; 81003; 82550; 82553; 82803; 83605; 83690; 83735; 83880; 84100; 84484; 85007; 85025; 85651; 86140; 87040; 87081; 87181; 93005; 93306; 93970; 94660; 94664; 94760; 99291; J8499

== ENCOUNTER 2018-08-23 05:38 | Inpatient (IN) | payer MEDICARE, MEDICAID ==
[~2018-08-23] VITALS: Ht 160 cm; Wt 76.7 kg
[2018-08-23] VITALS (9 sets, daily range): BP systolic 126–144; BP diastolic 58–93
--- NOTE | 2018-08-23 05:45 | NUR ---
ED Nurse Note: pt brought in by [facility] from [facility] c/c resp distress and dyspnea, per EMS, pt o2sat was in 80% and went up to 94% on nonbreather. Pt AA&ox1, GCS=14, skin pale and dry, noted bluish lip, cap refill <3sec, tachypnea, noted nasal congestion and LS=rhonchi carla, -n/v/d, abd soft nontender, pt on diaper, VSS, NSR on cardiac rehabilitation specialist. Noted o2sat 65% upon arrival, RT at the bedside, ERMD at the bedside, will cont monitor. pt was placed on bipap by RT.
[2018-08-23] MEDS ORDERED: SENNA8.8 MG/5 M PO (05:53)
[2018-08-23] MEDS ORDERED: MOM30 ML ORAL (05:53)
[2018-08-23] MEDS ORDERED: DULCOLAX10 MG RC (05:53)
[2018-08-23] MEDS ORDERED: COLACE100 MG/10 ORAL (05:53)
[2018-08-23] MEDS ORDERED: ALBUTEROL2.5 MG/3 M INH (05:53)
[2018-08-23] MEDS ORDERED: Ipratropium 0.02% Inh Soln 2.5ml UD HHN ONE (06:00)
[2018-08-23] MEDS ORDERED: Albuterol ud Inhalation HHN ONE (06:00)
[2018-08-23] MEDS ORDERED: Albuterol ud Inhalation ONE (06:07)
--- NOTE | 2018-08-23 06:08 | NUR ---
ED Nurse Note: potts 16 fr inserted per ERMD order, pt tolerated well, 10cc NS inserted, No urine output noted. ERMD notified. Will cont monitor.
[2018-08-23 06:09] LABS: BASOPHILS % (AUTO) 0.8 % (0.0-2.0); EOSINOPHILS % (AUTO) 0.6 % (0.0-3.0); HEMATOCRIT 36.7 % (37.0-47.0); HEMOGLOBIN 10.8 G/DL (12.0-16.0); LYMPHOCYTES % (AUTO) 11.3 % (20.0-45.0); MEAN CORPUSCULAR VOLUME 89 FL (80-99); MONOCYTES % (AUTO) 5.5 % (1.0-10.0); NEUTROPHILS % (AUTO) 81.9 % (45.0-75.0); PLATELET COUNT 174 K/UL (150-450); RED BLOOD COUNT 4.14 M/UL (4.20-5.40); RED CELL DISTRIBUTION WIDTH 19.6 % (11.6-14.8); WHITE BLOOD COUNT 6.8 K/UL (4.8-10.8)
--- NOTE | 2018-08-23 06:10 | Emergency Room Report ---
History of Present Illness General Chief Complaint: Dyspnea/Respdistress Source: Medical Record, EMS Present Illness HPI This is a 77-year-old female, intermediate patient, with history of COPD, CHF, A. fib who presents with chief complaint of shortness of breath and altered mental status. Syphilis presentation in the past. Onset tonight. She was cyanotic and hypoxic. She was 99% on nonrebreather. On room air she was only in the mid 80 percentile. Unable to get any other history from this patient because of her condition. Allergies: Coded Allergies: PIPERACILLIN (Unverified Allergy, Unknown, 05/21/18) tolerates cephalosporins TAZOBACTAM (Unverified Allergy, Unknown, 03/10/18) Patient History Past Medical History: see triage record, old chart reviewed, HTN, CHF, AFib, COPD, dementia Past Surgical History: other Pertinent Family History: none Social History: Denies: smoking Now: No Immunizations: other Reviewed Nursing Documentation: PMH: Agreed; PSxH: Agreed Nursing Documentation-PMH Hx Cardiac Problems: Yes Hx Hypertension: Yes Hx Pacemaker: Yes - left chest Hx Asthma: No Hx COPD: Yes Hx Diabetes: No Hx Cancer: No Hx Gastrointestinal Problems: Yes - dysphagia ,oropharyngeal phase Hx Dialysis: No Hx Neurological Problems: Yes - insomnia Hx Cerebrovascular Accident: Yes Hx Dementia: Yes Hx Seizures: Yes Hx Epilepsy: Yes Hx Tremors: Yes Hx Vertigo: Yes Hx Dizziness: Yes Hx Syncope: Yes Hx Headaches: Yes - occasional Hx Weakness: Yes Hx Fatigue: Yes Review of Systems Constitutional: Reports: weakness Respiratory: Reports: shortness of breath All Other Systems: limited - Secondary to condition Physical Exam Vital Signs Date Time Temp Pulse Resp B/P (MAP) Pulse Ox O2 Delivery O2 Flow Rate FiO2 08/23/18 05:40 98.8 74 18 127/57 99 Simple Mask 3.0 vitals with hypoxia Sp02 EP Interpretation: abnormal General Appearance: lethargic, obese Head: normocephalic, atraumatic Eyes: bilateral eye PERRL, bilateral eye EOMI ENT: hearing grossly normal, normal pharynx, other - Cyanotic lips Neck: full range of motion, supple, no meningismus Respiratory: respiratory distress, decreased breath sounds, rhonchi Cardiovascular #1: irregularly irregular Gastrointestinal: normal bowel sounds, non tender, no mass, no organomegaly, no bruit, non-distended Musculoskeletal: back normal, normal range of motion Neurologic: other - Sleepy and drowsy Skin: warm/dry Procedures Critical Care Time Critical Care Time Critical care is mandated in this patient who presented with acute on chronic respiratory failure. Patient require my urgent intervention to attenuate the risks of respiratory collapse which may lead to cardiovascular collapse and . Critical care time is 35 minutes excluding any reportable procedure. Critical care time included evaluation, multiple reevaluation, looking at old charts, interpreting laboratory and diagnostic data, discussing case with patient and family and consultants, and charting. Medical Decision Making Diagnostic Impression: Primary Impression: Acute on chronic respiratory failure with hypoxia and hypercapnia Additional Impressions: COPD with exacerbation CHF (congestive heart failure) Qualified Codes: I50.9 - Heart failure, unspecified Healthcare-associated pneumonia Atrial fibrillation, chronic Anemia, chronic disease ER Course Patient presents with acute on chronic respiratory failure. Similar symptoms in the past. She was placed on BiPAP which improved. Oxygenation better. Breathing treatment given. Chest x-ray showed opacification on the right side. This appeared to be from mucus plugging potential infiltrate. Respiratory therapist said lots of mucus suctioned up. Labs pending. I will sign this patient out to Dr. Gaspar for final disposition. Patient will be admitted. I contacted Dr. Mendoza for admission. EKG Diagnostic Results Rate: normal Rhythm: other - afib ST Segments: other - NSST changes Rhythm Strip Diag. Results EP Interpretation: yes Rate: 73 Rhythm: no PVC's, no ectopy, other - afib Chest X-Ray Diagnostic Results Chest X-Ray Diagnostic Results : Chest X-Ray Ordered: Yes # of Views/Limited/Complete: 1 View Indication: Shortness of Breath Interpretation: no pneumothorax, other - opacification of right lungs Impression: Other - opacification of right lungs Electronically Signed by: Wild Go MD Last Vital Signs Date Time Temp Pulse Resp B/P (MAP) Pulse Ox O2 Delivery O2 Flow Rate FiO2 08/23/18 05:40 98.8 74 18 127/57 99 Simple Mask 3.0 Status: improved Disposition: ADMITTED INPATIENT Condition: Critical Referrals: Yonathan Mendoza MD (PCP) Wild Go MD Aug 23, 2018 06:10
[2018-08-23] MEDS ORDERED: Cefepime HCl 1 GM in D5W 55 ML IVPB ONE (06:15)
[2018-08-23 06:20] LABS: BLOOD UREA NITROGEN 19 mg/dL (7-18); CALCIUM 9.2 MG/DL (8.5-10.1); CHLORIDE 90 MMOL/L (98-107); CREATININE 0.7 MG/DL (0.55-1.30); POTASSIUM 3.6 MMOL/L (3.5-5.1); SODIUM 143 MMOL/L (136-145)
--- NOTE | 2018-08-23 06:23 | NUR ---
Note undone in EDM - 08/23/18 at 0654 by KPAMarcyK ED Nurse Note: pt brought in by [facility] from [facility] c/c resp distress and dyspnea, per EMS, pt o2sat was in 80% and went up to 94% on nonbreather. Pt AA&ox1, GCS=14, skin pale and dry, noted bluish lip, cap refill <3sec, tachypnea, noted nasal congestion and LS=rhonchi carla, -n/v/d, abd soft nontender, pt on diaper, VSS, NSR on monitor worker. Noted o2sat 65% upon arrival, RT at the bedside, ERMD at the bedside, will cont monitor. pt was placed on bipap by RT.
--- NOTE | 2018-08-23 06:28 | NUR ---
ED Nurse Note: after suction/breathing tx/bipap, pt current o2sat 100% BIPAP setting PIP 15 IPAP 15 EPAP 5 Rate 14 FiO2 = 100% TV [address]
[2018-08-23 06:34] LABS: ALANINE AMINOTRANSFERASE 18 U/L (12-78); ALBUMIN 3.1 G/DL (3.4-5.0); ALBUMIN/GLOBULIN RATIO 0.8 (1.0-2.7); ALKALINE PHOSPHATASE 56 U/L (46-116); ASPARTATE AMINO TRANSFERASE 13 U/L (15-37); BILIRUBIN,TOTAL 0.6 MG/DL (0.2-1.0); CKMB 1.4 NG/ML (0.0-3.6); CREATINE KINASE 15 U/L (26-308)
--- NOTE | 2018-08-23 06:34 | NUR ---
ED Nurse Note: pt cleaned and changed into new gown, noted redness around perineal area where the skin folds are. will cont monitor.
[2018-08-23 06:37] LABS: CARBON DIOXIDE > 45 MMOL/L (21-32)
--- NOTE | 2018-08-23 06:45 | NUR ---
ED Nurse Note: PT TEMP 95.3 ERMD NOTIFIED, PT COVERED W/ WARM BLANKET, WILL CONTINUE TO MONITOR.
--- NOTE | 2018-08-23 07:01 | Diagnostic Imaging Report ---
PORTABLE AP SEMIUPRIGHT CXR: HISTORY: 77-year-old female with SOB. COMPARISON: Portable CXRs 07/31/2018, 06/13/2018, 05/26/2018; chest CTA with intravenous contrast 03/13/2018 (no prior reports available/provided). FINDINGS: Image is limited by portable technique, patient body habitus, and external artifacts, as before. Allowing for this, there is a skinfold line on the right, as well as ill- defined confluent moderate grade opacity in the right perihilar midlung with surrounding low-grade opacity, new or increased compared with 07/31/2017, and similar to 06/13/2018 and 05/26/2018, allowing for differences in technique. There is persistent ill-defined confluent retrocardiac opacity in the left lung base, similar to the prior x-rays. There is at least mild cardio megaly, allowing for technique, similar to the prior exams. There is moderate calcified atherosclerotic plaque of the aorta, as before, as well as prominent mitral annular calcification and right ventricular pacemaker device. No obvious pneumothorax, allowing for technique. There is probable post traumatic deformity of the left humeral neck, and moderate degenerative changes of the right glenohumeral joint, as before. IMPRESSION: Bilateral lung opacities, right greater than left, increased at least on the right compared with 07/31/2018, but similar to 06/13/2018 and 05/26/2018, allowing for differences in technique, suggesting probable combination of at least pleural effusions and atelectasis, +/- pneumonia; no definite evidence of significant acute interstitial edema, allowing for technique.
--- NOTE | 2018-08-23 07:14 | NUR ---
ED Nurse Note: report given to CHARLETTE Sanford and endorsed care, pt vss, o2sat 100% on bipap, VSS, no neuro changes.
--- NOTE | 2018-08-23 07:30 | NUR ---
ED Nurse Note: Received patient in bed with bipap, saturating at 100%, sleeping. pt responds to name. pt aao x1 to name only. no urine output noted on FC. will change and check again. body temp will be monitored. no cardiac or pulmonary distress noted at this time.
[2018-08-23] MEDS ORDERED: Miralax 17gm pkt ORAL PRN (08:30)
[2018-08-23] MEDS ORDERED: Albuterol/Ipratropium 3ml neb HHN PRN (08:30)
--- NOTE | 2018-08-23 08:54 | NUR ---
ED Nurse Note: FC was empty. reported to ERMD and inserted new FC 16Fr. 500cc of dark urine came out. urine sample was sent. rectal temp was 95.8F and reported to ERMD and warm fluid was recommended but received order for another warm blanket. will monitor in 30 minutes again.
[2018-08-23 08:57] LABS: APPEARANCE,URINE CLEAR; BILIRUBIN, URINE NEGATIVE (NEGATIVE); GLUCOSE, URINE (UA) NEGATIVE (NEGATIVE); KETONES,URINE NEGATIVE (NEGATIVE); LEUKOCYTE ESTERASE ,URINE 1+ (NEGATIVE); NITRITE,URINE NEGATIVE (NEGATIVE); PH,URINE 6 (4.5-8.0); PROTEIN,URINE 2+ (NEGATIVE); UROBILINOGEN,URINE 1 MG/DL (0.0-1.0)
--- NOTE | 2018-08-23 09:00 | NUR ---
ED Nurse Note: Rt lateral hip boils noted with redness. no drainage noted.
[2018-08-23 09:10] LABS: COLOR,URINE YELLOW
--- NOTE | 2018-08-23 09:24 | NUR ---
ED Nurse Note: Medication Lasix and Eliquis are unverified. notified pharmacist to verify.
--- NOTE | 2018-08-23 10:29 | NUR ---
ED Nurse Note: changed to hospital bed with RT and technology advisor. pt stable. rectal temp 98.8F.
--- NOTE | 2018-08-23 11:06 | General Progress Note ---
Akbar Reno MD Aug 23, 2018 11:06
--- NOTE | 2018-08-23 11:12 | Consultation ---
Consult Note Consult Note REASON FOR CONSULTATION: Shortness of breath. HISTORY OF PRESENT ILLNESS: Altereed mentation at [facility] with low oxygen saturation not able to provide much information but seems to be getting better on bipap . PAST MEDICAL HISTORY: On prior occasions, has had atrial fibrillation/flutter that is permanent. She does have history of bradycardia for which she underwent permanent pacemaker implantation. She has history of diastolic heart failure, COPD, dementia, respiratory failure, toxic metabolic encephalopathy, schizophrenia, coronary artery disease, hypertension, pleural effusion, bacteremia with Staphylococcus hominis, major depression, chronic diastolic dysfunction, overactive bladder, hyperlipidemia, gout, epilepsy, gastroesophageal reflux disease, MRSA colonization, atrial flutter, on anticoagulation previously with Eliquis, systemic hypertension, and psychosis. ALLERGIES: She is reportedly allergic to tazobactam as well as piperacillin. SOCIAL HISTORY: She is a resident, initially she used to smoke 30 years ago. No alcoholic beverages. She used to drink 30 years ago. REVIEW OF SYSTEMS: GASTROINTESTINAL: Positive for nausea. Positive for vomiting. Positive for diarrhea. Positive for constipation. GENITOURINARY: Positive for discomfort on urination. Positive for blood in the urine. PULMONARY: Positive for cough and positive for wheezing. CONSTITUTIONAL: Positive for fever. Positive for chills. PHYSICAL EXAMINATION: VITAL SIGNS: Blood pressure 132/71 with heart rate of 99, respirations 16, and temperature 98.2. GENERAL: Shows to be elderly female. She is on BiPAP treatment and she is very hard of hearing. NECK: Supple. No jugular venous distention. LUNGS: Decreased air entry bilaterally. No significant crackles noted. CARDIAC: Not significant tachycardia. No bradycardia. No heaves or thrills. ABDOMEN: Abdomen is soft and obese. Positive bowel sounds. EXTREMITIES: There is no edema. NEUROLOGICAL: Awake, responsive, and communicative, although hard of hearing. LABORATORY AND DIAGNOSTIC DATA: in er reviewed . A chest x-ray performed in the emergency room shows cardiomegaly, bilateral interstitial and airspace edema, right more than left EKG shows atrial fibrillation and right axis deviation with flutter pattern. An echocardiogram was performed 07/28, which showed a technically difficult study with ejection fraction of 55%, heavy mitral annular calcification, mild to moderate aortic regurgitation with a peak gradient of 16, mean gradient of 9, aortic valve area of 1.3, mitral valve peak gradient of 20, mean gradient of 6, moderate mitral regurgitation, and moderate tricuspid regurgitation with pulmonary systolic pressure of 60. Assessment/Plan 1. Permanent atrial fibrillation/flutter. 2. History of permanent pacemaker implantation, leadless device. 3. COPD. 4. Diastolic heart failure. 5. Bilateral pleural effusion. 6. Pulmonary hypertension. 7. Mild to moderate mitral and aortic valvular disease. 8. Dementia. 9. AMS 10. Respiratory acidosis Dr. Sierra, and Dr. Mendoza, this patient was seen in cardiac consultation. She does have evidence of respiratory acidosis, probably chronic and acute component. Continue with BiPAP therapy as she seems to be improving Diuretics should be given for history of diastolic heart failure and BiPAP should be followed and creatinine should be followed with diuretics. Natriuretic peptide appears moderately elevated,more so than on prior eval Anticoagulation with Eliquis should be continued when stable thank you Sharron Chavez Shaun S. MD Aug 23, 2018 11:12
--- NOTE | 2018-08-23 12:45 | NUR ---
ED Nurse Note: Report given to CHARLETTE Singer.
--- NOTE | 2018-08-23 12:50 | NUR ---
ED Nurse Note: offered to dc soft restraint order to FR[facility]IS[facility] and he agreed it. pt is ready to be transferred. restraint removed. [facility] made aware.
--- NOTE | 2018-08-23 13:00 | NUR ---
NURSE NOTES: Received patient from ED on non-rebreather mask. Belonging list reviewed, no belongings noted at this time. Patient is awake, alert, and calm at this time. Contact isolation observed, placed patient on program evaluation consultant. Call light placed within reach and bed at its lowest position. Will admit to SDU standard level of care.
--- NOTE | 2018-08-23 13:00 | NUR ---
ED Nurse Note: pt transferred to SDU with 1 electronics technician, 1 RN, 1 RT in stable condition.
--- NOTE | 2018-08-23 13:43 | Consultation ---
History of Present Illness General Date patient seen: Aug 23, 2018 Chief Complaint: Dyspnea/Respdistress Present Illness HPI 77-year-old female, history of hypertension, COPD, atrial flutter, seizure disorder, depression/schizophrenia, history of alcohol abuse, wheelchair bound, ETOH abuse in the past, coming from [facility] for dyspnea. Patient was found to have acute pulmonary edema and was started on BIPAP, she improved in ER and her oxygen was changed to face mask. she is admitted to [facility] for further work up. Her mental status improved as well Allergies: Coded Allergies: PIPERACILLIN (Unverified Allergy, Unknown, 05/21/18) tolerates cephalosporins TAZOBACTAM (Unverified Allergy, Unknown, 03/10/18) Medication History Scheduled Apixaban (Eliquis), 5 MG ORAL BID Apixaban (Eliquis), 5 MG PO EVERY 12 HOURS, (Reported) Docusate Sodium (Docusate Sodium), 100 MG ORAL DAILY, (Reported) Furosemide* (Lasix*), 40 MG ORAL TWICE A DAY Magnesium Hydroxide (Milk of Magnesia), 30 ML ORAL DAILY, (Reported) Pantoprazole* (Protonix*), 40 MG ORAL EVERY 12 HOURS Potassium Chloride (Potassium Chloride), 10 MEQ ORAL DAILY, (Reported) Risperidone* (Risperdal*), 1 MG ORAL BEDTIME Scheduled PRN Acetaminophen With Codeine (T#3) (Tylenol #3 Tab*), 1 TAB ORAL Q4H PRN for For Pain, (Reported) Acetaminophen With Codeine (T#3) (Tylenol #3 Tab*), 1 TAB ORAL Q4H PRN for Severe Pain (Pain Scale 7-10), (Reported) Acetaminophen* (Acetaminophen 325MG Tablet*), 325 MG ORAL Q4H PRN for Fever/ Headache/Mild Pain, (Reported) Acetaminophen* (Acetaminophen 325MG Tablet*), 650 MG ORAL Q4H PRN for Mild Pain (Pain Scale 1-3), (Reported) Acetaminophen* (Acetaminophen 325MG Tablet*), 325 MG ORAL Q4H PRN for Prn Headache/Temp > 101, (Reported) Albuterol Sulfate* (Albuterol Sulfate Hhn*), 3 ML INH Q6H PRN for Shortness of Breath, (Reported) Hydrocodone Bit/Acetaminophen 5-325* ([place] 5-325*), 1 TAB ORAL Q4H PRN Ipratropium/Albuterol Sulfate (DuoNeb 0.5-3(2.5)mg/3ml), 3 ML HHN Q4HR PRN for Shortness of breath, (Reported) Polyethylene Glycol* (Miralax*), 17 GM ORAL DAILYPRN PRN Temazepam* (Restoril*), 15 MG ORAL HSPRN PRN [HYDROcodone/Acetamin 10/325], 1 TAB ORAL Q4H PRN Miscellaneous Medications Bisacodyl (Dulcolax), 10 MG RC, (Reported) Sennosides (Senna), 8.8 MG PO, (Reported) Patient History Healthcare decision maker Resuscitation status Advanced Directive on File Past Medical/Surgical History Past Medical/Surgical History: (1) Paranoid schizophrenia (2) Pacemaker (3) Anemia, chronic disease (4) Gout (5) Bipolar depression (6) COPD (chronic obstructive pulmonary disease) (7) Dementia (8) CAD (coronary artery disease) (9) HTN (hypertension) (10) Seizure disorder Review of Systems All Other Systems: negative except mentioned in HPI Physical Exam General Appearance: cachetic Lines, tubes and drains: peripheral HEENT: normocephalic, anicteric Neck: non-tender Respiratory/Chest: chest wall non-tender, rhonchi - right Cardiovascular/Chest: normal peripheral pulses, normal rate Abdomen: normal bowel sounds Genitourinary/Rectal: normal genital exam, normal rectal exam Extremities: normal range of motion, non-tender Neurologic: wire coiner II-XII grossly normal Last 24 Hour Vital Signs Date Time Temp Pulse Resp B/P (MAP) Pulse Ox O2 Delivery O2 Flow Rate FiO2 08/23/18 13:13 97.3 83 23 130/82 (98) 100 08/23/18 13:00 98.0 90 27 144/77 100 Bi-pap 100 08/23/18 13:00 98.0 74 20 144/71 100 3.0 100 08/23/18 12:40 87 20 100 Facial 100 08/23/18 11:45 98.0 74 18 144/71 100 Bi-pap 100 08/23/18 10:30 83 23 100 Facial 100 08/23/18 10:29 98.8 08/23/18 10:00 87 16 132/93 100 Bi-pap 100 08/23/18 09:00 79 28 100 Facial 100 08/23/18 08:56 95.8 08/23/18 08:06 87 24 Bi-pap 100 08/23/18 08:06 3.0 100 08/23/18 08:06 85 24 126/70 100 Bi-pap 3.0 100 08/23/18 06:49 91 22 100 Facial 100 08/23/18 06:45 95.3 81 18 141/58 100 Bi-pap 100 08/23/18 06:29 3.0 100 08/23/18 06:13 80 26 98 Bi-pap 100 08/23/18 06:08 71 29 Bi-pap 3.0 100 08/23/18 06:08 97.0 71 24 142/58 100 Bi-pap 3.0 100 08/23/18 06:03 91 29 92 Facial 100 08/23/18 06:02 91 29 Bi-pap 100 08/23/18 06:00 78 19 95 Bi-pap 100 08/23/18 05:40 98.8 74 18 127/57 99 Simple Mask 3.0 Intake and Output 08/22/18 08/23/18 19:00 07:00 Intake Total 30 ml Balance 30 ml IV Total 30 ml Laboratory Tests Test 08/23/18 06:00 08/23/18 08:49 White Blood Count 6.8 K/UL (4.8-10.8) Red Blood Count 4.14 M/UL (4.20-5.40) L Hemoglobin 10.8 G/DL (12.0-16.0) L Hematocrit 36.7 % (37.0-47.0) L Mean Corpuscular Volume 89 FL (80-99) Mean Corpuscular Hemoglobin 26.1 PG (27.0-31.0) L Mean Corpuscular Hemoglobin Concent 29.4 G/DL (32.0-36.0) L Red Cell Distribution Width 19.6 % (11.6-14.8) H Platelet Count 174 K/UL (150-450) Mean Platelet Volume 7.4 FL (6.5-10.1) Neutrophils (%) (Auto) 81.9 % (45.0-75.0) H Lymphocytes (%) (Auto) 11.3 % (20.0-45.0) L Monocytes (%) (Auto) 5.5 % (1.0-10.0) Eosinophils (%) (Auto) 0.6 % (0.0-3.0) Basophils (%) (Auto) 0.8 % (0.0-2.0) Prothrombin Time 10.7 SEC (9.30-11.50) Prothromb Time International Ratio 1.0 (0.9-1.1) Activated Partial Thromboplast Time 27 SEC (23-33) Arterial Blood pH 7.292 (7.350-7.450) Arterial Blood Partial Pressure CO2 135.9 mmHg (35.0-45.0) *H Arterial Blood Partial Pressure O2 147.5 mmHg (75.0-100.0) H Arterial Blood HCO3 64.2 mmol/L (22.0-26.0) *H Arterial Blood Oxygen Saturation 98.5 % (95-100) Arterial Blood Base Excess 31.2 (-2-2) *H Ina Test Positive Sodium Level 143 MMOL/L (136-145) Potassium Level 3.6 MMOL/L (3.5-5.1) Chloride Level 90 MMOL/L (98-107) L Carbon Dioxide Level > 45 MMOL/L (21-32) *H Blood Urea Nitrogen 19 mg/dL (7-18) H Creatinine 0.7 MG/DL (0.55-1.30) Estimat Glomerular Filtration Rate mL/min (>60) Glucose Level 116 MG/DL (74-106) H Lactic Acid Level 1.00 mmol/L (0.4-2.0) Calcium Level 9.2 MG/DL (8.5-10.1) Total Bilirubin 0.6 MG/DL (0.2-1.0) Aspartate Amino Transf (AST/SGOT) 13 U/L (15-37) L Alanine Aminotransferase (ALT/SGPT) 18 U/L (12-78) Alkaline Phosphatase 56 U/L (46-116) Total Creatine Kinase 15 U/L (26-308) L Creatine Kinase MB 1.4 NG/ML (0.0-3.6) Creatine Kinase MB Relative Index 9.3 Troponin I 0.007 ng/mL (0.000-0.056) Pro-B-Type Natriuretic Peptide 5490 pg/mL (0-125) H Total Protein 7.2 G/DL (6.4-8.2) Albumin 3.1 G/DL (3.4-5.0) L Globulin 4.1 g/dL Albumin/Globulin Ratio 0.8 (1.0-2.7) L Urine Color Yellow Urine Appearance Clear Urine pH 6 (4.5-8.0) Urine Specific [place] 1.015 (1.005-1.035) Urine Protein 2+ (NEGATIVE) H Urine Glucose (UA) Negative (NEGATIVE) Urine Ketones Negative (NEGATIVE) Urine Blood 1+ (NEGATIVE) H Urine Nitrite Negative (NEGATIVE) Urine Bilirubin Negative (NEGATIVE) Urine Urobilinogen 1 MG/DL (0.0-1.0) H Urine Leukocyte Esterase 1+ (NEGATIVE) H Urine RBC 2-4 /HPF (0 - 2) H Urine WBC 2-4 /HPF (0 - 2) Urine Squamous Epithelial Cells Few /LPF (NONE/OCC) Urine Bacteria Few /HPF (NONE) Urine Hyaline Casts 2-4 /LPF (NONE) H Height (Feet): 5 Height (Inches): 3.00 Weight (Pounds): 200 Medications Current Medications Medications (Trade) Dose Ordered Sig/Ibrahima Route PRN Reason Start Time Stop Time Status Last Admin Dose Admin Acetaminophen (Tylenol) 650 mg Q4H PRN ORAL Fever (temp>100.5F) 08/23/18 08:30 09/22/18 08:29 Albuterol/ Ipratropium (Albuterol/ Ipratropium) 3 ml Q4H PRN HHN Shortness of Breath 08/23/18 08:30 08/28/18 08:29 Apixaban (Eliquis) 5 mg BID ORAL 08/23/18 18:00 09/22/18 17:59 Dextrose (Dextrose 50%) 25 ml Q30M PRN IV Hypoglycemia 08/23/18 08:30 09/22/18 08:29 Dextrose (Dextrose 50%) 50 ml Q30M PRN IV Hypoglycemia 08/23/18 08:30 09/22/18 08:29 Furosemide (Lasix) 40 mg EVERY 8 HOURS IV 08/23/18 22:00 09/22/18 21:59 Furosemide (Lasix) 40 mg ONCE IV 08/23/18 12:40 08/23/18 13:40 08/23/18 12:48 Ondansetron HCl (Zofran) 4 mg Q6H PRN IVP Nausea & Vomiting 08/23/18 08:30 09/22/18 08:29 Polyethylene Glycol (Miralax) 17 gm DAILYPRN PRN ORAL Constipation 08/23/18 08:30 09/22/18 08:29 Risperidone (RisperDAL) 1 mg BEDTIME ORAL 08/23/18 21:00 09/22/18 20:59 Temazepam (Restoril) 15 mg HSPRN PRN ORAL Insomnia 08/23/18 08:30 08/30/18 08:29 Assessment/Plan Problem List: (1) Respiratory failure, acute ICD Codes: J96.00 - Acute respiratory failure, unspecified whether with hypoxia or hypercapnia SNOMED: 16101010 (2) Pulmonary edema ICD Codes: J81.1 - Pulmonary edema SNOMED: 27768235 (3) Acute diastolic CHF (congestive heart failure) ICD Codes: I50.31 - Acute diastolic congestive heart failure SNOMED: 912694873 (4) COPD (chronic obstructive pulmonary disease) ICD Codes: J44.9 - Chronic obstructive pulmonary disease, unspecified SNOMED: 62205382 (5) Gout ICD Codes: M10.9 - Gout, unspecified SNOMED: 04812113 Assessment/Plan titrate bipap respiratory treatment diuretics titrate fio2 to sat of 92% monitor electrolytes dvt prophylaxis DNR is appropriate. Mendel Sierra MD Aug 23, 2018 13:43
--- NOTE | 2018-08-23 15:02 | NUR ---
CASE MANAGEMENT:INITIAL REVIEW 77 YO F RUBÉN FROM REHAB ON CC: DYSPNEA PMHx: HTN. CHF. A FIB. COPD. DEMENTIA. SYPHILIS. SI:RESPIRATORY DISTRESS. T 98.8 HR 74 RR 18 B/P 127/57 SATS 99% ON 3L/NC CL 90 CO2 >45 BUN 19 GLU 119 AST 13 TOTAL CK 13 BNP 5490 ABGs pH 7.292 pCO2 135.9 pO2 147.5 HCO3 64.2 BE 31.2 IS: DUO NEB HHN X1 CEFEPIME IV X1 LEVOFLOXACIN IV X1 PATIENT ADMITTED TO STEP DOWN UNIT 08/23/2018 @ 0616 DCP: PATIENT TO BE DISCHARGED TO SNF ONCE MEDICALLY CLEARED. PLAN OF CARE: VENOUS DUPLEX CXR 2D ECHO Addendum: 08/23/18 at 1856 by Aure Castillo INTERQUAL MET
--- NOTE | 2018-08-23 16:40 | History & Physical ---
History and Physical History & Physicial Dictated for Int med-Dr Mendoza no. [id number]. Juan Dutta MD Aug 23, 2018 16:40
[2018-08-23] MEDS: Eliquis 2.5mg tablet ORAL SCH (18:30)
--- NOTE | 2018-08-23 19:30 | NUR ---
HAND-OFF: Report given to CHARLETTE Dixon.
--- NOTE | 2018-08-23 19:31 | NUR ---
NURSE NOTES: Report received from CHARLETTE Singer. Observed pt lying on the bed, awake, A/O x3. Denies any pain at this time. A fib/flutter with HR of 90s noted. On NC 4L, with no signs of sob. IV on R AC 18G, intact and patent. Bed in the lowest position. Side rails padded and up x3. Will continue to monitor.
--- NOTE | 2018-08-23 22:00 | History and Physical Report ---
DATE OF ADMISSION: 08/23/2018 CHIEF COMPLAINT: The patient is a 77-year-old white female, presents with chief complaint of respiratory failure. HISTORY OF PRESENT ILLNESS: The patient was admitted to [facility] in July 2018. Please see history and physical and discharge summary dictated at that time. The patient is a resident of rehab on [facility]. According to staff at rehab on [facility], the patient began to experience shortness of breath. EMS was called. The patient was found to have oxygen saturation in the 80s despite being given oxygen at 99%. The patient presented to [facility]. The patient was placed on BiPAP. The patient is admitted for respiratory failure. REVIEW OF SYSTEMS: Unable to assess secondary to the patient's mental status. PAST MEDICAL HISTORY: Significant for, 1. Atrial flutter. 2. Congestive heart failure. 3. Chronic obstructive pulmonary disease. 4. History of intraventricular pacemaker implantation. 5. Coronary artery disease. 6. Hypertension. 7. Seizure disorder. 8. Paranoid schizophrenia. 9. Depression. PAST SURGICAL HISTORY: Significant for intraventricular pacemaker implantation. CURRENT MEDICATIONS: 1. Tylenol No. 3 1 tablet p.o. q.4 h. p.r.n. 2. Albuterol nebulized q.4 h. p.r.n. 3. Eliquis 5 mg p.o. twice daily. 4. Lasix 40 mg p.o. twice daily. 5. Protonix 40 mg p.o. twice daily. 6. MiraLax 17 g p.o. daily. 7. Potassium chloride 10 mEq p.o. p.o. daily. 8. Risperdal 1 mg p.o. at bedtime. 9. Temazepam 15 mg p.o. at bedtime. ALLERGIES: Piperacillin and tazobactam. SOCIAL HISTORY: The patient is single and is a resident of rehab center on [facility]. The patient denies tobacco or alcohol use. PHYSICAL EXAMINATION: VITAL SIGNS: Temperature 98.8, respirations 18, pulse 74, blood pressure 127/57. GENERAL: The patient is a well-developed and well-nourished white female, in no apparent distress. HEENT: Eyes, pupils are equal and responsive to light and accommodation. Extraocular movements intact. NECK: Supple without lymphadenopathy. CHEST: Lungs are with decreased breath sounds bilateral bases with crackles. Otherwise, without wheezes or rales. CARDIOVASCULAR: Regular rhythm and rate. S1, S2 are normal without murmurs, rubs, or gallops. ABDOMEN: Soft, nontender, and nondistended. Positive bowel sounds. No evidence of hepatosplenomegaly. Currently, no rebound or guarding noted. EXTREMITIES: Negative for clubbing, cyanosis, or edema. RECTAL/GENITAL: Refused. NEUROLOGIC: Cranial nerves II through XII are grossly intact without focal deficits. Motor strength is 5/5 bilaterally. Deep tendon reflexes are 2+ plantar. LABORATORY STUDIES: WBC 6.8, hemoglobin 10.8, hematocrit 36.7, platelets 175,000. Sodium 143, potassium 3.6, chloride 90, CO2 greater than 45. BUN 19 creatinine 0.7, troponin 0.007. BNP elevated at 5490. Chest x-ray was reported as bilateral lung opacities consistent with pneumonia. ASSESSMENT: This is a 77-year-old white female. 1. Respiratory failure. 2. Pneumonia. 3. History of chronic obstructive pulmonary disease. 4. Atrial flutter. 5. Congestive heart failure. 6. History of coronary artery disease. 7. Hypertension. 8. Seizure disorder. 9. Paranoid schizophrenia. 10. Depression. TREATMENT: 1. Respiratory failure/pneumonia. A Pulmonary consultation has been obtained with Dr. Mendel Sierra. The patient has been placed on BiPAP. The patient has been started empirically on DuoNebs every 4 hours. This may be secondary to COPD exacerbation versus congestive heart failure. We will follow recommendations of Pulmonary. 2. History of atrial flutter/history of intraventricular pacemaker. Cardiology consultation is pending. 3. Congestive heart failure. The patient is currently receiving Lasix. 4. History of coronary artery disease. 5. Hypertension. The patient is currently hypotensive. 6. History of seizure disorder. 7. Paranoid schizophrenia. 8. Depression. Juan Dutta M.D. DR: EDGAR JOB#: [id number] CC:
[2018-08-24] VITALS: BP 148/70
[2018-08-24 04:00] VITALS: BP 150/95
--- NOTE | 2018-08-24 07:25 | NUR ---
NURSE NOTES: Report given to CHARLETTE Singer. No acute distress noted at this time.
--- NOTE | 2018-08-24 07:26 | NUR ---
HAND-OFF: Report given to CHARLETTE Singer. No acute distress noted at this time.
--- NOTE | 2018-08-24 07:27 | NUR ---
NURSE NOTES: Received patient in bed. On nasal cannula at 4LPM. Awake, alert, denies pain, no respiratory distress. Contact isolation observed. López cath inplace. Will continue plan of care.
[2018-08-24 08:00] VITALS: BP 160/75
[2018-08-24] MEDS: Eliquis 2.5mg tablet ORAL SCH ×2 (08:10→18:06)
[2018-08-24 08:33] LABS: HEMATOCRIT 33.7 % (37.0-47.0); HEMOGLOBIN 10.2 G/DL (12.0-16.0); LYMPHOCYTES % (AUTO) 12.2 % (20.0-45.0); MEAN CORPUSCULAR VOLUME 86 FL (80-99); NEUTROPHILS % (AUTO) 79.8 % (45.0-75.0); PLATELET COUNT 165 K/UL (150-450); RED BLOOD COUNT 3.89 M/UL (4.20-5.40); RED CELL DISTRIBUTION WIDTH 19.6 % (11.6-14.8); WHITE BLOOD COUNT 6.7 K/UL (4.8-10.8)
[2018-08-24 08:58] LABS: BLOOD UREA NITROGEN 13 mg/dL (7-18); CALCIUM 9.2 MG/DL (8.5-10.1); CHLORIDE 90 MMOL/L (98-107); CREATININE 0.7 MG/DL (0.55-1.30); PHOSPHORUS 1.9 MG/DL (2.5-4.9); POTASSIUM 2.8 MMOL/L (3.5-5.1); SODIUM 144 MMOL/L (136-145)
[2018-08-24 09:02] LABS: CARBON DIOXIDE > 45 MMOL/L (21-32)
--- NOTE | 2018-08-24 10:24 | NUR ---
YAKOV ROLDAN REVIEW 77 Y/O FEMALE BIBA FROM [facility] TO [facility] CC:DYSPNEA/RESPIRATORY DISTRESS SI:RESPIRATORY DISTRESS VS: BP 142/58, P 74, T 95.3, RR 29, SpO2 99 on 3.0L BI-pap FiO2 100 Hgb10.2, Hct 33.7, ABG: pCO2 135.9, HCO3 64.2, K 2.8 CXR IMPRESSION: Bilateral lung opacities, right greater than left IS:LASIX 40mg IV APIXABAN 5mg RISPEERIDONE 1mg ADMITTED TO SDU DC PLAN: RETURN TO [facility]
--- NOTE | 2018-08-24 10:43 | NUR ---
RADIOLOGY DEPT., CHEST X-RAY DONE.-P.DYE
--- NOTE | 2018-08-24 10:44 | Pulmonology Progress Note ---
Assessment/Plan Problems: (1) Respiratory failure, acute (2) Pulmonary edema (3) Acute diastolic CHF (congestive heart failure) (4) COPD (chronic obstructive pulmonary disease) (5) Gout Assessment/Plan doing better all reviewed cardiology appreciated titrate bipap respiratory treatment diuretics titrate fio2 to sat of 92% monitor electrolytes dvt prophylaxis DNR is appropriate. Subjective ROS Limited/Unobtainable: No Constitutional: Reports: no symptoms HEENT: Repors: no symptoms Respiratory: Reports: no symptoms Allergies: Coded Allergies: PIPERACILLIN (Unverified Allergy, Unknown, 05/21/18) tolerates cephalosporins TAZOBACTAM (Unverified Allergy, Unknown, 03/10/18) Objective Last 24 Hour Vital Signs Date Time Temp Pulse Resp B/P (MAP) Pulse Ox O2 Delivery O2 Flow Rate FiO2 08/24/18 09:00 91 33 94 Facial 40 08/24/18 08:30 40 08/24/18 08:00 4.0 08/24/18 08:00 Nasal Cannula 4.0 08/24/18 08:00 99.7 96 20 160/75 (103) 98 08/24/18 07:41 92 08/24/18 07:00 87 22 Nasal Cannula 3.0 32 08/24/18 05:11 88 32 96 Facial 40 08/24/18 04:00 50 08/24/18 04:00 Bi-pap 08/24/18 04:00 98.8 88 27 150/95 (113) 97 08/24/18 04:00 88 08/24/18 03:09 91 35 96 Facial 50 08/24/18 01:25 89 28 97 Facial 50 08/24/18 00:00 Bi-pap 08/24/18 00:00 98.8 88 18 148/70 (96) 92 08/24/18 00:00 91 08/24/18 00:00 50 08/23/18 22:38 90 24 96 Facial 50 08/23/18 21:21 92 30 95 Facial 50 08/23/18 20:00 4.0 08/23/18 20:00 98.2 89 22 130/73 (92) 95 08/23/18 20:00 Nasal Cannula 4.0 08/23/18 20:00 90 08/23/18 19:31 93 22 Nasal Cannula 3.0 32 08/23/18 18:00 80 08/23/18 17:18 84 29 100 Facial 100 08/23/18 16:00 Bi-pap 08/23/18 16:00 98.4 83 18 130/69 (89) 100 08/23/18 15:26 86 08/23/18 15:00 Bi-pap 08/23/18 14:47 94 20 100 Facial 100 08/23/18 13:13 97.3 83 23 130/82 (98) 100 08/23/18 13:00 98.0 90 27 144/77 100 Bi-pap 100 08/23/18 13:00 98.0 74 20 144/71 100 3.0 100 08/23/18 12:40 87 20 100 Facial 100 08/23/18 11:45 98.0 74 18 144/71 100 Bi-pap 100 Intake and Output 08/23/18 08/24/18 19:00 07:00 Intake Total 155 ml 240 ml Output Total 1255 ml 950 ml Balance -1100 ml -710 ml Intake Oral 0 ml 240 ml IV Total 155 ml Output Urine Total 1255 ml 950 ml # Bowel Movements 1 General Appearance: WD/WN HEENT: normocephalic, atraumatic Respiratory/Chest: chest wall non-tender, crackles/rales Cardiovascular: normal peripheral pulses, normal rate Abdomen: normal bowel sounds, soft, non tender Genitourinary: normal external genitalia Extremities: no clubbing Skin: no rash Neurologic/Psychiatric: gm mobile II-XII grossly normal, no motor/sensory deficits Lymphatic: no neck adenopathy Musculoskeletal: normal muscle bulk Laboratory Tests 08/24/18 08:21: White Blood Count 6.7, Red Blood Count 3.89L, Hemoglobin 10.2L, Hematocrit 33.7L , Mean Corpuscular Volume 86, Mean Corpuscular Hemoglobin 26.2L, Mean Corpuscular Hemoglobin Concent 30.3L, Red Cell Distribution Width 19.6H, Platelet Count 165, Mean Platelet Volume 7.1, Neutrophils (%) (Auto) 79.8H, Lymphocytes (%) (Auto) 12.2L, Monocytes (%) (Auto) 6.0, Eosinophils (%) (Auto) 1.0, Basophils (%) (Auto) 1.0, Sodium Level 144, Potassium Level 2.8L, Chloride Level 90L, Carbon Dioxide Level > 45*H, Blood Urea Nitrogen 13, Creatinine 0.7, Estimat Glomerular Filtration Rate , Glucose Level 178H, Calcium Level 9.2, Phosphorus Level 1.9L, Troponin I 0.016, Albumin 3.0L Current Medications Medications (Trade) Dose Ordered Sig/Ibrahima Route PRN Reason Start Time Stop Time Status Last Admin Dose Admin Acetaminophen (Tylenol) 650 mg Q4H PRN ORAL Fever (temp>100.5F) 08/23/18 08:30 09/22/18 08:29 Albuterol/ Ipratropium (Albuterol/ Ipratropium) 3 ml Q4H PRN HHN Shortness of Breath 08/23/18 08:30 08/28/18 08:29 Apixaban (Eliquis) 5 mg BID ORAL 08/23/18 18:00 09/22/18 17:59 08/24/18 08:10 Dextrose (Dextrose 50%) 25 ml Q30M PRN IV Hypoglycemia 08/23/18 08:30 09/22/18 08:29 Dextrose (Dextrose 50%) 50 ml Q30M PRN IV Hypoglycemia 08/23/18 08:30 09/22/18 08:29 Furosemide (Lasix) 40 mg EVERY 8 HOURS IV 08/23/18 22:00 09/22/18 21:59 08/24/18 05:33 Ondansetron HCl (Zofran) 4 mg Q6H PRN IVP Nausea & Vomiting 08/23/18 08:30 09/22/18 08:29 Polyethylene Glycol (Miralax) 17 gm DAILYPRN PRN ORAL Constipation 08/23/18 08:30 09/22/18 08:29 Risperidone (RisperDAL) 1 mg BEDTIME ORAL 08/23/18 21:00 09/22/18 20:59 08/23/18 21:13 Temazepam (Restoril) 15 mg HSPRN PRN ORAL Insomnia 08/23/18 08:30 08/30/18 08:29 Mendel Sierra MD Aug 24, 2018 10:44
[2018-08-24 12:00] VITALS: BP 147/74
[2018-08-24] MEDS ORDERED: Potassium Chloride 40 MEQ in Sodium Chloride 550 ML IVPB ONE (12:00)
[2018-08-24] MEDS ORDERED: Sodium Phosphate 30 MM in NS 275 ML IV ONE (13:00)
[2018-08-24 16:00] VITALS: BP 154/63
--- NOTE | 2018-08-24 17:25 | Internal Med Progress Note ---
Subjective Date of Service: Aug 24, 2018 Physician Name Juan Dutta Attending Physician Yonathan Mendoza MD Current Medications Medications (Trade) Dose Ordered Sig/Ibrahima Route PRN Reason Start Time Stop Time Status Last Admin Dose Admin Acetaminophen (Tylenol) 650 mg Q4H PRN ORAL Fever (temp>100.5F) 08/23/18 08:30 09/22/18 08:29 Acetazolamide (Diamox 500mg Inj) 250 mg EVERY 12 HOURS IVP 08/24/18 21:00 09/23/18 20:59 Albuterol/ Ipratropium (Albuterol/ Ipratropium) 3 ml Q4H PRN HHN Shortness of Breath 08/23/18 08:30 08/28/18 08:29 Apixaban (Eliquis) 5 mg BID ORAL 08/23/18 18:00 09/22/18 17:59 08/24/18 08:10 Dextrose (Dextrose 50%) 25 ml Q30M PRN IV Hypoglycemia 08/23/18 08:30 09/22/18 08:29 Dextrose (Dextrose 50%) 50 ml Q30M PRN IV Hypoglycemia 08/23/18 08:30 09/22/18 08:29 Furosemide (Lasix) 40 mg EVERY 8 HOURS IV 08/23/18 22:00 09/22/18 21:59 08/24/18 14:28 Ondansetron HCl (Zofran) 4 mg Q6H PRN IVP Nausea & Vomiting 08/23/18 08:30 09/22/18 08:29 Polyethylene Glycol (Miralax) 17 gm DAILYPRN PRN ORAL Constipation 08/23/18 08:30 09/22/18 08:29 Risperidone (RisperDAL) 1 mg BEDTIME ORAL 08/23/18 21:00 09/22/18 20:59 08/23/18 21:13 Sodium Phosphate 30 mm/Sodium Chloride 285 ml @ 47.5 mls/hr ONCE ONCE IV 08/24/18 13:00 08/24/18 18:59 Temazepam (Restoril) 15 mg HSPRN PRN ORAL Insomnia 08/23/18 08:30 08/30/18 08:29 Allergies: Coded Allergies: PIPERACILLIN (Unverified Allergy, Unknown, 05/21/18) tolerates cephalosporins TAZOBACTAM (Unverified Allergy, Unknown, 03/10/18) ROS Limited/Unobtainable: Yes Subjective 77 YO F admitted with respiratory failure. Cover for Int med-Dr Mendoza. CHRISTOPHER. Tolerating full face BIPAP Objective Last Vital Signs Date Time Temp Pulse Resp B/P (MAP) Pulse Ox O2 Delivery O2 Flow Rate FiO2 08/24/18 17:06 92 28 93 Facial 40 08/24/18 16:00 98.4 154/63 (93) 08/24/18 08:00 4.0 Laboratory Tests Test 08/24/18 08:21 White Blood Count 6.7 K/UL (4.8-10.8) Red Blood Count 3.89 M/UL (4.20-5.40) L Hemoglobin 10.2 G/DL (12.0-16.0) L Hematocrit 33.7 % (37.0-47.0) L Mean Corpuscular Volume 86 FL (80-99) Mean Corpuscular Hemoglobin 26.2 PG (27.0-31.0) L Mean Corpuscular Hemoglobin Concent 30.3 G/DL (32.0-36.0) L Red Cell Distribution Width 19.6 % (11.6-14.8) H Platelet Count 165 K/UL (150-450) Mean Platelet Volume 7.1 FL (6.5-10.1) Neutrophils (%) (Auto) 79.8 % (45.0-75.0) H Lymphocytes (%) (Auto) 12.2 % (20.0-45.0) L Monocytes (%) (Auto) 6.0 % (1.0-10.0) Eosinophils (%) (Auto) 1.0 % (0.0-3.0) Basophils (%) (Auto) 1.0 % (0.0-2.0) Sodium Level 144 MMOL/L (136-145) Potassium Level 2.8 MMOL/L (3.5-5.1) L Chloride Level 90 MMOL/L (98-107) L Carbon Dioxide Level > 45 MMOL/L (21-32) *H Blood Urea Nitrogen 13 mg/dL (7-18) Creatinine 0.7 MG/DL (0.55-1.30) Estimat Glomerular Filtration Rate mL/min (>60) Glucose Level 178 MG/DL (74-106) H Calcium Level 9.2 MG/DL (8.5-10.1) Phosphorus Level 1.9 MG/DL (2.5-4.9) L Troponin I 0.016 ng/mL (0.000-0.056) Albumin 3.0 G/DL (3.4-5.0) L Intake and Output 08/23/18 08/24/18 19:00 07:00 Intake Total 155 ml 240 ml Output Total 1255 ml 950 ml Balance -1100 ml -710 ml Intake Oral 0 ml 240 ml IV Total 155 ml Output Urine Total 1255 ml 950 ml # Bowel Movements 1 Objective PHYSICAL EXAMINATION: GENERAL: The patient is a well-developed and well-nourished white female, in no apparent distress. HEENT: Eyes, pupils are equal and responsive to light and accommodation. Extraocular movements intact. NECK: Supple without lymphadenopathy. CHEST: Lungs are with decreased breath sounds bilateral bases with crackles. Otherwise, without wheezes or rales. CARDIOVASCULAR: Regular rhythm and rate. S1, S2 are normal without murmurs, rubs, or gallops. ABDOMEN: Soft, nontender, and nondistended. Positive bowel sounds. No evidence of hepatosplenomegaly. Currently, no rebound or guarding noted. EXTREMITIES: Negative for clubbing, cyanosis, or edema. RECTAL/GENITAL: Refused. NEUROLOGIC: Cranial nerves II through XII are grossly intact without focal deficits. Motor strength is 5/5 bilaterally. Deep tendon reflexes are 2+ plantar. Assessment/Plan Assessment/Plan ASSESSMENT: This is a 77-year-old white female. 1. Respiratory failure/respiratory acidosis 2. Pneumonia. 3. History of chronic obstructive pulmonary disease. 4. Atrial flutter. 5. Congestive heart failure. 6. History of coronary artery disease. 7. Hypertension. 8. Seizure disorder. 9. Paranoid schizophrenia. 10. Depression. TREATMENT: 1. Respiratory failure/pneumonia. A Pulmonary consultation has been obtained with Dr. Mendel Sierra. The patient is currently on full face BiPAP. The patient has been started empirically on DuoNebs every 4 hours. This may be secondary to COPD exacerbation versus congestive heart failure. We will follow recommendations of Pulmonary. 2. History of atrial flutter/history of intraventricular pacemaker. Cardiology consultation is pending. 3. Congestive heart failure. The patient is currently receiving Lasix. 4. History of coronary artery disease. 5. Hypertension. The patient is currently hypotensive. 6. History of seizure disorder. 7. Paranoid schizophrenia. 8. Depression. Juan Dutta MD Aug 24, 2018 17:25
--- NOTE | 2018-08-24 19:15 | NUR ---
NURSE NOTES: Report received from Jah elliott RN. patient seen in bed in semi cruz position with bipap on with previous setting. Patient is aler, verbally responsive, able to make needs known. Denies any pain at this time. IV site is to right wrist, 22g, and Right AC 18G, both is intact. Bed is in lowest position . call light is within easy reach while in bed. Will continue to monitor.
--- NOTE | 2018-08-24 19:15 | NUR ---
HAND-OFF: Report given to Minnie Lira RN.
[2018-08-24 20:00] VITALS: BP 141/77
--- NOTE | 2018-08-24 20:17 | Cardiology Progress Note ---
Assessment/Plan Assessment/Plan 1. Permanent atrial fibrillation/flutter. 2. History of permanent pacemaker implantation, leadless device. 3. COPD. 4. Diastolic heart failure. 5. Bilateral pleural effusion. 6. Pulmonary hypertension. 7. Mild to moderate mitral and aortic valvular disease. 8. Dementia. 9. AMS 10. Respiratory acidosis better overall tele noted afib keep on diuretic noted and agree with diamox bipapa as need all trop neg abx if felt appropriate by dr sylvester Subjective Cardiovascular: Reports: chest pain, irregular heart rate, lightheadedness, palpitations Gastrointestinal/Abdominal: Reports: abdominal pain Genitourinary: Reports: burning Objective Last 24 Hour Vital Signs Date Time Temp Pulse Resp B/P (MAP) Pulse Ox O2 Delivery O2 Flow Rate FiO2 08/24/18 17:06 92 28 93 Facial 40 08/24/18 16:00 98.4 94 20 154/63 (93) 96 08/24/18 16:00 40 08/24/18 16:00 Bi-pap 08/24/18 15:26 93 08/24/18 14:53 90 25 95 Facial 40 08/24/18 12:00 98.2 94 20 147/74 (98) 97 08/24/18 12:00 Bi-pap 08/24/18 11:44 89 08/24/18 11:18 81 32 96 Facial 40 08/24/18 09:00 91 33 94 Facial 40 08/24/18 08:30 40 08/24/18 08:00 4.0 08/24/18 08:00 Nasal Cannula 4.0 08/24/18 08:00 99.7 96 20 160/75 (103) 98 08/24/18 07:41 92 08/24/18 07:00 87 22 Nasal Cannula 3.0 32 08/24/18 05:11 88 32 96 Facial 40 08/24/18 04:00 50 08/24/18 04:00 Bi-pap 08/24/18 04:00 98.8 88 27 150/95 (113) 97 08/24/18 04:00 88 08/24/18 03:09 91 35 96 Facial 50 08/24/18 01:25 89 28 97 Facial 50 08/24/18 00:00 Bi-pap 08/24/18 00:00 98.8 88 18 148/70 (96) 92 08/24/18 00:00 91 08/24/18 00:00 50 08/23/18 22:38 90 24 96 Facial 50 08/23/18 21:21 92 30 95 Facial 50 General Appearance: alert Neck: no JVD Cardiovascular: irregularly irregular Respiratory/Chest: crackles/rales Abdomen: normal bowel sounds, non tender, soft Extremities: no swelling Intake and Output 08/23/18 08/24/18 19:00 07:00 Intake Total 155 ml 240 ml Output Total 1255 ml 950 ml Balance -1100 ml -710 ml Intake Oral 0 ml 240 ml IV Total 155 ml Output Urine Total 1255 ml 950 ml # Bowel Movements 1 Laboratory Tests Test 08/24/18 08:21 White Blood Count 6.7 K/UL (4.8-10.8) Red Blood Count 3.89 M/UL (4.20-5.40) L Hemoglobin 10.2 G/DL (12.0-16.0) L Hematocrit 33.7 % (37.0-47.0) L Mean Corpuscular Volume 86 FL (80-99) Mean Corpuscular Hemoglobin 26.2 PG (27.0-31.0) L Mean Corpuscular Hemoglobin Concent 30.3 G/DL (32.0-36.0) L Red Cell Distribution Width 19.6 % (11.6-14.8) H Platelet Count 165 K/UL (150-450) Mean Platelet Volume 7.1 FL (6.5-10.1) Neutrophils (%) (Auto) 79.8 % (45.0-75.0) H Lymphocytes (%) (Auto) 12.2 % (20.0-45.0) L Monocytes (%) (Auto) 6.0 % (1.0-10.0) Eosinophils (%) (Auto) 1.0 % (0.0-3.0) Basophils (%) (Auto) 1.0 % (0.0-2.0) Sodium Level 144 MMOL/L (136-145) Potassium Level 2.8 MMOL/L (3.5-5.1) L Chloride Level 90 MMOL/L (98-107) L Carbon Dioxide Level > 45 MMOL/L (21-32) *H Blood Urea Nitrogen 13 mg/dL (7-18) Creatinine 0.7 MG/DL (0.55-1.30) Estimat Glomerular Filtration Rate mL/min (>60) Glucose Level 178 MG/DL (74-106) H Calcium Level 9.2 MG/DL (8.5-10.1) Phosphorus Level 1.9 MG/DL (2.5-4.9) L Troponin I 0.016 ng/mL (0.000-0.056) Albumin 3.0 G/DL (3.4-5.0) L Akbar Reno MD Aug 24, 2018 20:17
[2018-08-24] MEDS: acetaZOLAMIDE 500mg Inj IVP SCH (21:10)
--- NOTE | 2018-08-24 21:32 | NUR ---
RESPIRATORY NOTE: PT. RECEIVED STABLE ON 2LPM NASAL CANNULA. FACE WAS INSPECTED FOR FACIAL WOUNDS AND NONE WERE FOUND. FACE WAS TAPED WITH SPONGE TAPE PRIOR TO PLACING BIPAP MASK. PT PLACED ON BIPAP WITH CURRENT ORDERS: 05/06, RATE OF 14, 40%. PT TOLERATING BIPAP WELL. NO S/S OF RESPIRATORY DISTRESS NOTED AT THIS TIME. WILL CONTINUE TO MONITOR.
[2018-08-25] VITALS: BP 105/60
[2018-08-25 04:00] VITALS: BP 108/58
--- NOTE | 2018-08-25 05:14 | NUR ---
RESPIRATORY NOTE: PT STABLE ON BIPAP WITH CURRENT SETTINGS. BIPAP CIRCUIT AND MASK SECURE AND OUT OF THE WAY. SO S/S OF RESPIRATORY DISTRESS NOTED AT THIS TIME.
--- NOTE | 2018-08-25 07:15 | NUR ---
NURSE NOTES: RECEIVED BED SIDE REPORT FROM ASHLEY OVALLES OF NOC SHIFT. RECEIVED PT WITH HOB ELEVATED 45 DEGREE AWAKE AND ALERT BUT WITH PERIODS OF FORGETFULNESS.PT ABLE TO FALLOW SIMPLE COMMANDS.PT WAS ON BIPAP AND CHANGED TO 4L/MINTS VIA N/C .PT ENCOURAGED TO EAT .PT ABLE TO EAT ABOUT 80% DURING BREAKFAST TIME.FULL BODY ASSESMENT COMPLETED.PT REPOSITIONED IN BED AND MADE COMFORTABLE POSSIBLE.Zora AGGARWAL CAME TO SEE THE PT AND MADE AWARE AND NOTIFIED REGARDING K+ LEVEL IS 3.O.M.D ORDER TO GIVE KCL 40 MEQ IVPB X1.ALL NEW ORDERS NOTED AND CARRIED OUT.WILL CONT TO MONITOR.
--- NOTE | 2018-08-25 07:21 | NUR ---
HAND-OFF: Report given to Johan Bell RN.
[2018-08-25 08:00] VITALS: BP 116/51
--- NOTE | 2018-08-25 08:57 | NUR ---
RADIOLOGY: CXR COMPLETED. AUDIE
[2018-08-25] MEDS: Eliquis 2.5mg tablet ORAL SCH ×2 (09:31→19:02)
[2018-08-25] MEDS: acetaZOLAMIDE 500mg Inj IVP SCH ×2 (09:31→21:13)
[2018-08-25 09:35] LABS: BASOPHILS % (AUTO) 1.6 % (0.0-2.0); EOSINOPHILS % (AUTO) 1.7 % (0.0-3.0); HEMOGLOBIN 10.3 G/DL (12.0-16.0); LYMPHOCYTES % (AUTO) 18.9 % (20.0-45.0); MEAN CORPUSCULAR VOLUME 87 FL (80-99); MONOCYTES % (AUTO) 11.3 % (1.0-10.0); NEUTROPHILS % (AUTO) 66.5 % (45.0-75.0); PLATELET COUNT 141 K/UL (150-450); RED BLOOD COUNT 3.91 M/UL (4.20-5.40); RED CELL DISTRIBUTION WIDTH 20.2 % (11.6-14.8); WHITE BLOOD COUNT 5.2 K/UL (4.8-10.8)
--- NOTE | 2018-08-25 10:11 | Pulmonology Progress Note ---
Assessment/Plan Problems: (1) Respiratory failure, acute (2) Pulmonary edema (3) Acute diastolic CHF (congestive heart failure) (4) COPD (chronic obstructive pulmonary disease) (5) Gout Assessment/Plan cxr reviewed, the pulmonary edema is completely resolved doing better all reviewed cardiology appreciated titrate bipap, tolerating off bipap respiratory treatment diuretics titrate fio2 to sat of 92% monitor electrolytes dvt prophylaxis DNR is appropriate. Subjective ROS Limited/Unobtainable: No Constitutional: Reports: no symptoms HEENT: Repors: no symptoms Respiratory: Reports: no symptoms Allergies: Coded Allergies: PIPERACILLIN (Unverified Allergy, Unknown, 05/21/18) tolerates cephalosporins TAZOBACTAM (Unverified Allergy, Unknown, 03/10/18) Objective Last 24 Hour Vital Signs Date Time Temp Pulse Resp B/P (MAP) Pulse Ox O2 Delivery O2 Flow Rate FiO2 08/25/18 08:30 84 18 100 08/25/18 08:00 74 08/25/18 08:00 Bi-pap 08/25/18 08:00 97.7 76 26 116/51 (72) 98 08/25/18 08:00 40 08/25/18 07:35 80 18 100 08/25/18 05:14 84 22 98 Facial 40 08/25/18 04:00 98.2 80 25 108/58 (75) 97 08/25/18 04:00 Bi-pap 08/25/18 04:00 40 08/25/18 03:31 82 08/25/18 03:18 83 26 98 Facial 40 08/25/18 01:10 80 28 99 Facial 40 08/25/18 00:00 98.2 81 24 105/60 (75) 97 08/25/18 00:00 Bi-pap 08/24/18 23:29 88 08/24/18 23:25 88 19 96 Facial 40 08/24/18 21:47 90 25 96 Facial 40 08/24/18 21:32 83 27 93 Facial 40 08/24/18 21:32 93 22 Nasal Cannula 3.0 32 08/24/18 20:00 2.0 08/24/18 20:00 80 08/24/18 20:00 97.5 80 22 141/77 (98) 96 08/24/18 20:00 97.5 88 24 141/77 (98) 96 08/24/18 20:00 Bi-pap 08/24/18 19:24 96 08/24/18 17:06 92 28 93 Facial 40 08/24/18 16:00 98.4 94 20 154/63 (93) 96 08/24/18 16:00 40 08/24/18 16:00 Bi-pap 08/24/18 15:26 93 08/24/18 14:53 90 25 95 Facial 40 08/24/18 12:00 98.2 94 20 147/74 (98) 97 08/24/18 12:00 Bi-pap 08/24/18 11:44 89 08/24/18 11:18 81 32 96 Facial 40 Intake and Output 08/24/18 08/25/18 19:00 07:00 Intake Total 977.5 ml 357.5 ml Output Total 1100 ml 2000 ml Balance -122.5 ml -1642.5 ml Intake Oral 360 ml 120 ml IV Total 617.5 ml 237.5 ml Output Urine Total 1100 ml 2000 ml # Bowel Movements 2 2 General Appearance: WD/WN HEENT: normocephalic, atraumatic Respiratory/Chest: chest wall non-tender, lungs clear Cardiovascular: normal peripheral pulses, normal rate Abdomen: normal bowel sounds, soft, non tender Genitourinary: normal external genitalia Skin: no rash Microbiology Date/Time Source Procedure Growth Status 08/23/18 05:45 Blood Blood Culture - Preliminary NO GROWTH AFTER 24 HOURS Resulted 08/23/18 05:40 Blood Blood Culture - Preliminary NO GROWTH AFTER 24 HOURS Resulted Laboratory Tests 08/25/18 08:30: White Blood Count 5.2, Red Blood Count 3.91L, Hemoglobin 10.3L, Hematocrit 34.0L , Mean Corpuscular Volume 87, Mean Corpuscular Hemoglobin 26.4L, Mean Corpuscular Hemoglobin Concent 30.4L, Red Cell Distribution Width 20.2H, Platelet Count 141L, Mean Platelet Volume 6.7, Neutrophils (%) (Auto) 66.5, Lymphocytes (%) (Auto) 18.9L, Monocytes (%) (Auto) 11.3H, Eosinophils (%) (Auto ) 1.7, Basophils (%) (Auto) 1.6, Sodium Level [Pending], Potassium Level [ Pending], Chloride Level [Pending], Carbon Dioxide Level [Pending], Blood Urea Nitrogen [Pending], Creatinine [Pending], Estimat Glomerular Filtration Rate [ Pending], Glucose Level [Pending], Calcium Level [Pending], Total Bilirubin [ Pending], Aspartate Amino Transf (AST/SGOT) [Pending], Alanine Aminotransferase (ALT/SGPT) [Pending], Alkaline Phosphatase [Pending], Troponin I [Pending], Pro- B-Type Natriuretic Peptide [Pending], Total Protein [Pending], Albumin [Pending] , Globulin [Pending] Current Medications Medications (Trade) Dose Ordered Sig/Ibrahima Route PRN Reason Start Time Stop Time Status Last Admin Dose Admin Acetaminophen (Tylenol) 650 mg Q4H PRN ORAL Fever (temp>100.5F) 08/23/18 08:30 09/22/18 08:29 Acetazolamide (Diamox 500mg Inj) 250 mg EVERY 12 HOURS IVP 08/24/18 21:00 09/23/18 20:59 08/25/18 09:31 Albuterol/ Ipratropium (Albuterol/ Ipratropium) 3 ml Q4H PRN HHN Shortness of Breath 08/23/18 08:30 08/28/18 08:29 Apixaban (Eliquis) 5 mg BID ORAL 08/23/18 18:00 09/22/18 17:59 08/25/18 09:31 Dextrose (Dextrose 50%) 25 ml Q30M PRN IV Hypoglycemia 08/23/18 08:30 09/22/18 08:29 Dextrose (Dextrose 50%) 50 ml Q30M PRN IV Hypoglycemia 08/23/18 08:30 09/22/18 08:29 Furosemide (Lasix) 40 mg EVERY 8 HOURS IV 08/23/18 22:00 09/22/18 21:59 08/24/18 21:10 Ondansetron HCl (Zofran) 4 mg Q6H PRN IVP Nausea & Vomiting 08/23/18 08:30 09/22/18 08:29 Polyethylene Glycol (Miralax) 17 gm DAILYPRN PRN ORAL Constipation 08/23/18 08:30 09/22/18 08:29 Risperidone (RisperDAL) 1 mg BEDTIME ORAL 08/23/18 21:00 09/22/18 20:59 08/24/18 21:11 Temazepam (Restoril) 15 mg HSPRN PRN ORAL Insomnia 08/23/18 08:30 08/30/18 08:29 08/24/18 21:09 Mendel Sierra MD Aug 25, 2018 10:11
[2018-08-25 10:14] LABS: ALANINE AMINOTRANSFERASE 15 U/L (12-78); ALBUMIN 2.9 G/DL (3.4-5.0); ALBUMIN/GLOBULIN RATIO 0.8 (1.0-2.7); ALKALINE PHOSPHATASE 48 U/L (46-116); ASPARTATE AMINO TRANSFERASE 19 U/L (15-37); BILIRUBIN,TOTAL 0.6 MG/DL (0.2-1.0); BLOOD UREA NITROGEN 13 mg/dL (7-18); CALCIUM 8.6 MG/DL (8.5-10.1); CHLORIDE 96 MMOL/L (98-107); CREATININE 0.6 MG/DL (0.55-1.30); SODIUM 147 MMOL/L (136-145)
[2018-08-25 10:15] LABS: CARBON DIOXIDE > 45 MMOL/L (21-32)
[2018-08-25] MEDS ORDERED: Potassium Chloride 40 MEQ in Sodium Chloride 550 ML IVPB ONE (11:00)
[2018-08-25 12:00] VITALS: BP 116/57
--- NOTE | 2018-08-25 14:30 | Cardiology Progress Note ---
Assessment/Plan Assessment/Plan 1. Permanent atrial fibrillation/flutter. 2. History of permanent pacemaker implantation, leadless device. 3. COPD. 4. Diastolic heart failure. 5. Bilateral pleural effusion. 6. Pulmonary hypertension. 7. Mild to moderate mitral and aortic valvular disease. 8. Dementia. 9. AMS 10. Respiratory acidosis better overall tele noted afib keep on diuretic noted and agree with diamox bipap as need cxr persoanlly reviewed over all better ok to telel form cardaic view point when ok pulm lazo all trop neg mg supplement abx if felt appropriate by dr sylvester Subjective Cardiovascular: Denies: chest pain, lightheadedness, palpitations Respiratory: Denies: shortness of breath Gastrointestinal/Abdominal: Denies: abdominal pain Genitourinary: Denies: burning Objective Last 24 Hour Vital Signs Date Time Temp Pulse Resp B/P (MAP) Pulse Ox O2 Delivery O2 Flow Rate FiO2 08/25/18 12:00 Bi-pap 08/25/18 12:00 98.5 86 30 116/57 (76) 95 08/25/18 12:00 2.0 08/25/18 10:36 75 18 99 08/25/18 08:30 84 18 100 08/25/18 08:00 74 08/25/18 08:00 Bi-pap 08/25/18 08:00 97.7 76 26 116/51 (72) 98 08/25/18 08:00 40 08/25/18 07:35 80 18 100 08/25/18 05:14 84 22 98 Facial 40 08/25/18 04:00 98.2 80 25 108/58 (75) 97 08/25/18 04:00 Bi-pap 08/25/18 04:00 40 08/25/18 03:31 82 08/25/18 03:18 83 26 98 Facial 40 08/25/18 01:10 80 28 99 Facial 40 08/25/18 00:00 98.2 81 24 105/60 (75) 97 08/25/18 00:00 Bi-pap 08/24/18 23:29 88 08/24/18 23:25 88 19 96 Facial 40 08/24/18 21:47 90 25 96 Facial 40 08/24/18 21:32 83 27 93 Facial 40 08/24/18 21:32 93 22 Nasal Cannula 3.0 32 08/24/18 20:00 2.0 08/24/18 20:00 80 08/24/18 20:00 97.5 80 22 141/77 (98) 96 08/24/18 20:00 97.5 88 24 141/77 (98) 96 08/24/18 20:00 Bi-pap 08/24/18 19:24 96 08/24/18 17:06 92 28 93 Facial 40 08/24/18 16:00 98.4 94 20 154/63 (93) 96 08/24/18 16:00 40 08/24/18 16:00 Bi-pap 08/24/18 15:26 93 08/24/18 14:53 90 25 95 Facial 40 General Appearance: no apparent distress, alert Neck: supple Cardiovascular: irregularly irregular Respiratory/Chest: lungs clear Abdomen: normal bowel sounds, non tender, soft Extremities: no swelling Intake and Output 08/24/18 08/25/18 19:00 07:00 Intake Total 977.5 ml 357.5 ml Output Total 1100 ml 2000 ml Balance -122.5 ml -1642.5 ml Intake Oral 360 ml 120 ml IV Total 617.5 ml 237.5 ml Output Urine Total 1100 ml 2000 ml # Bowel Movements 2 2 Laboratory Tests Test 08/25/18 08:30 08/25/18 13:30 White Blood Count 5.2 K/UL (4.8-10.8) Red Blood Count 3.91 M/UL (4.20-5.40) L Hemoglobin 10.3 G/DL (12.0-16.0) L Hematocrit 34.0 % (37.0-47.0) L Mean Corpuscular Volume 87 FL (80-99) Mean Corpuscular Hemoglobin 26.4 PG (27.0-31.0) L Mean Corpuscular Hemoglobin Concent 30.4 G/DL (32.0-36.0) L Red Cell Distribution Width 20.2 % (11.6-14.8) H Platelet Count 141 K/UL (150-450) L Mean Platelet Volume 6.7 FL (6.5-10.1) Neutrophils (%) (Auto) 66.5 % (45.0-75.0) Lymphocytes (%) (Auto) 18.9 % (20.0-45.0) L Monocytes (%) (Auto) 11.3 % (1.0-10.0) H Eosinophils (%) (Auto) 1.7 % (0.0-3.0) Basophils (%) (Auto) 1.6 % (0.0-2.0) Sodium Level 147 MMOL/L (136-145) H Potassium Level 3.0 MMOL/L (3.5-5.1) L Chloride Level 96 MMOL/L (98-107) L Carbon Dioxide Level > 45 MMOL/L (21-32) *H Blood Urea Nitrogen 13 mg/dL (7-18) Creatinine 0.6 MG/DL (0.55-1.30) Estimat Glomerular Filtration Rate mL/min (>60) Glucose Level 86 MG/DL (74-106) Calcium Level 8.6 MG/DL (8.5-10.1) Total Bilirubin 0.6 MG/DL (0.2-1.0) Aspartate Amino Transf (AST/SGOT) 19 U/L (15-37) Alanine Aminotransferase (ALT/SGPT) 15 U/L (12-78) Alkaline Phosphatase 48 U/L (46-116) Troponin I 0.007 ng/mL (0.000-0.056) Pro-B-Type Natriuretic Peptide 2448 pg/mL (0-125) H Total Protein 6.5 G/DL (6.4-8.2) Albumin 2.9 G/DL (3.4-5.0) L Globulin 3.6 g/dL Albumin/Globulin Ratio 0.8 (1.0-2.7) L Magnesium Level 1.5 MG/DL (1.8-2.4) L Microbiology Date/Time Source Procedure Growth Status 08/23/18 05:45 Blood Blood Culture - Preliminary NO GROWTH AFTER 24 HOURS Resulted 08/23/18 05:40 Blood Blood Culture - Preliminary NO GROWTH AFTER 24 HOURS Resulted Akbar Reno MD Aug 25, 2018 14:29
[2018-08-25 16:00] VITALS: BP 102/57
--- NOTE | 2018-08-25 18:52 | Internal Med Progress Note ---
Subjective Date of Service: Aug 25, 2018 Physician Name Juan Dutta Attending Physician Yonathan Mendoza MD Current Medications Medications (Trade) Dose Ordered Sig/Ibrahima Route PRN Reason Start Time Stop Time Status Last Admin Dose Admin Acetaminophen (Tylenol) 650 mg Q4H PRN ORAL Fever (temp>100.5F) 08/23/18 08:30 09/22/18 08:29 08/25/18 13:13 Acetazolamide (Diamox 500mg Inj) 250 mg EVERY 12 HOURS IVP 08/24/18 21:00 09/23/18 20:59 08/25/18 09:31 Albuterol/ Ipratropium (Albuterol/ Ipratropium) 3 ml Q4H PRN HHN Shortness of Breath 08/23/18 08:30 08/28/18 08:29 Apixaban (Eliquis) 5 mg BID ORAL 08/23/18 18:00 09/22/18 17:59 08/25/18 09:31 Dextrose (Dextrose 50%) 25 ml Q30M PRN IV Hypoglycemia 08/23/18 08:30 09/22/18 08:29 Dextrose (Dextrose 50%) 50 ml Q30M PRN IV Hypoglycemia 08/23/18 08:30 09/22/18 08:29 Furosemide (Lasix) 40 mg EVERY 8 HOURS IV 08/23/18 22:00 09/22/18 21:59 08/25/18 14:23 Ondansetron HCl (Zofran) 4 mg Q6H PRN IVP Nausea & Vomiting 08/23/18 08:30 09/22/18 08:29 Polyethylene Glycol (Miralax) 17 gm DAILYPRN PRN ORAL Constipation 08/23/18 08:30 09/22/18 08:29 Risperidone (RisperDAL) 1 mg BEDTIME ORAL 08/23/18 21:00 09/22/18 20:59 08/24/18 21:11 Temazepam (Restoril) 15 mg HSPRN PRN ORAL Insomnia 08/23/18 08:30 08/30/18 08:29 08/24/18 21:09 Allergies: Coded Allergies: PIPERACILLIN (Unverified Allergy, Unknown, 05/21/18) tolerates cephalosporins TAZOBACTAM (Unverified Allergy, Unknown, 10/9/18) ROS Limited/Unobtainable: Yes Subjective 77 YO F admitted with respiratory failure. Cover for Int med-Dr Mendoza. CHRISTOPHER. Continues on BIPAP Objective Last Vital Signs Date Time Temp Pulse Resp B/P (MAP) Pulse Ox O2 Delivery O2 Flow Rate FiO2 08/25/18 16:00 2.0 08/25/18 16:00 Bi-pap 08/25/18 16:00 77 08/25/18 16:00 98.0 30 102/57 (72) 85 08/25/18 08:00 40 Laboratory Tests Test 08/25/18 08:30 08/25/18 13:30 White Blood Count 5.2 K/UL (4.8-10.8) Red Blood Count 3.91 M/UL (4.20-5.40) L Hemoglobin 10.3 G/DL (12.0-16.0) L Hematocrit 34.0 % (37.0-47.0) L Mean Corpuscular Volume 87 FL (80-99) Mean Corpuscular Hemoglobin 26.4 PG (27.0-31.0) L Mean Corpuscular Hemoglobin Concent 30.4 G/DL (32.0-36.0) L Red Cell Distribution Width 20.2 % (11.6-14.8) H Platelet Count 141 K/UL (150-450) L Mean Platelet Volume 6.7 FL (6.5-10.1) Neutrophils (%) (Auto) 66.5 % (45.0-75.0) Lymphocytes (%) (Auto) 18.9 % (20.0-45.0) L Monocytes (%) (Auto) 11.3 % (1.0-10.0) H Eosinophils (%) (Auto) 1.7 % (0.0-3.0) Basophils (%) (Auto) 1.6 % (0.0-2.0) Sodium Level 147 MMOL/L (136-145) H Potassium Level 3.0 MMOL/L (3.5-5.1) L Chloride Level 96 MMOL/L (98-107) L Carbon Dioxide Level > 45 MMOL/L (21-32) *H Blood Urea Nitrogen 13 mg/dL (7-18) Creatinine 0.6 MG/DL (0.55-1.30) Estimat Glomerular Filtration Rate mL/min (>60) Glucose Level 86 MG/DL (74-106) Calcium Level 8.6 MG/DL (8.5-10.1) Total Bilirubin 0.6 MG/DL (0.2-1.0) Aspartate Amino Transf (AST/SGOT) 19 U/L (15-37) Alanine Aminotransferase (ALT/SGPT) 15 U/L (12-78) Alkaline Phosphatase 48 U/L (46-116) Troponin I 0.007 ng/mL (0.000-0.056) Pro-B-Type Natriuretic Peptide 2448 pg/mL (0-125) H Total Protein 6.5 G/DL (6.4-8.2) Albumin 2.9 G/DL (3.4-5.0) L Globulin 3.6 g/dL Albumin/Globulin Ratio 0.8 (1.0-2.7) L Magnesium Level 1.5 MG/DL (1.8-2.4) L Microbiology Date/Time Source Procedure Growth Status 08/23/18 05:45 Blood Blood Culture - Preliminary NO GROWTH AFTER 24 HOURS Resulted 08/23/18 05:40 Blood Blood Culture - Preliminary NO GROWTH AFTER 24 HOURS Resulted Intake and Output 08/24/18 08/25/18 19:00 07:00 Intake Total 977.5 ml 357.5 ml Output Total 1100 ml 2000 ml Balance -122.5 ml -1642.5 ml Intake Oral 360 ml 120 ml IV Total 617.5 ml 237.5 ml Output Urine Total 1100 ml 2000 ml # Bowel Movements 2 2 Objective PHYSICAL EXAMINATION: GENERAL: The patient is a well-developed and well-nourished white female, in no apparent distress. HEENT: Eyes, pupils are equal and responsive to light and accommodation. Extraocular movements intact. NECK: Supple without lymphadenopathy. CHEST: BIPAP; Lungs are with decreased breath sounds bilateral bases with crackles. Otherwise, without wheezes or rales. CARDIOVASCULAR: Regular rhythm and rate. S1, S2 are normal without murmurs, rubs, or gallops. ABDOMEN: Soft, nontender, and nondistended. Positive bowel sounds. No evidence of hepatosplenomegaly. Currently, no rebound or guarding noted. EXTREMITIES: Negative for clubbing, cyanosis, or edema. RECTAL/GENITAL: Refused. NEUROLOGIC: Cranial nerves II through XII are grossly intact without focal deficits. Motor strength is 5/5 bilaterally. Deep tendon reflexes are 2+ plantar. Assessment/Plan Assessment/Plan ASSESSMENT: This is a 77-year-old white female. 1. Respiratory failure/respiratory acidosis 2. Pneumonia. 3. History of chronic obstructive pulmonary disease. 4. Atrial flutter. 5. Congestive heart failure. 6. History of coronary artery disease. 7. Hypertension. 8. Seizure disorder. 9. Paranoid schizophrenia. 10. Depression. TREATMENT: 1. Respiratory failure/pneumonia. A Pulmonary consultation has been obtained with Dr. Mendel Sierra. The patient is currently on BiPAP. The patient has been started empirically on DuoNebs every 4 hours. This may be secondary to COPD exacerbation versus congestive heart failure. We will follow recommendations of Pulmonary. 2. History of atrial flutter/history of intraventricular pacemaker. Cardiology consultation is pending. 3. Congestive heart failure. The patient is currently receiving Lasix. 4. History of coronary artery disease. 5. Hypertension. The patient is currently hypotensive. 6. History of seizure disorder. 7. Paranoid schizophrenia. 8. Depression. Juan Dutta MD Aug 25, 2018 18:52
--- NOTE | 2018-08-25 19:14 | Cardiology Report ---
APPROVED REPORT EXAM: Two-dimensional and M-mode echocardiogram with Doppler and color Doppler. INDICATION LV FUNCTION M-Mode DIMENSIONS IVSd1.5 (0.7-1.1cm)Left Atrium (MM)4.1 (1.6-4.0cm) LVDd2.1 (3.5-5.6cm)Aortic Root3.2 (2.0-3.7cm) PWd1.0 (0.7-1.1cm)Aortic Cusp Exc.1.5 (1.5-2.0cm) IVSs1.3 cm LVDs1.3 (2.5-4.0cm) PWs1.1 cm Other Information Quality : Poor Technically limited study due to patient's resistance . Technically difficult study due to poor acoustical windows. Normal left ventricular chamber size, systolic function and wall motion to extend visualized . Left ventricular ejection fraction estimated to be 55%. Mild left ventricular hypertrophy by 2-D. Small to medium sized posterior pericardial effusion . Mild left atrial enlargement . Right cardiac chamber sizes are within normal limits. Aortic valve calcification with decreased cusp excursion . Moderately thickened mitral valve leaflets with normal excursion. Mitral annulus and aortic root calcification. Pulmonic valve not well visualized. IVC at normal size with physiologic collapse. A color flow and spectral Doppler study was performed and revealed: No aortic insufficiency . Peak aortic valve gradient of 18 mm Hg and a mean of 8 mmHg. Aortic valve area 1.5 cm2 calculated by continuity equation. Mitral inflow velocities indicates possible pseudo normalization pattern implying moderately elevated left atrial pressure (Grade II ). Mild to moderate mitral regurgitation. Mild tricuspid regurgitation. Tricuspid systolic velocities suggests peak right ventricular systolic pressure of 51mmHg,consistent moderate pulmonary hypertension .
--- NOTE | 2018-08-25 19:15 | Diagnostic Imaging Report ---
Indication: Dyspnea Comparison: 08/24/2018 A single view chest radiograph was obtained. Findings: Cardiomegaly is present. There is a probable left pleural effusion 11 blunting of the costophrenic angle. This is unchanged. Mild interstitial opacities are again noted probably unchanged. IMPRESSION: Mild interstitial edema/CHF suspected. Left pleural effusion
--- NOTE | 2018-08-25 19:16 | Diagnostic Imaging Report ---
APPROVED REPORT CPT Code: 81352 Present Symptoms Comments: AMS BILATERAL: Imaging reveals a patent deep venous system bilaterally. There is no evidence of thrombus within the femoral, popliteal or tibial segments. The greater saphenous veins are also within normal limits. Doppler indicates normal spontaneous flow within these segments.
--- NOTE | 2018-08-25 19:19 | NUR ---
HAND-OFF: Report given to .ASHLEY OVALLES.
--- NOTE | 2018-08-25 19:19 | NUR ---
NURSE NOTES: Report received from Arabella Prado RN. patient seen in semi cruz position with oxygen on 4L/min via NC. sp02 is 97%, PAtient is alert, verbally responsive, able to make needs known. Denies any pain at this time. IV site to right wrist 22g and left FA 22g is in tact. Noted with potts cath and is intact, urine is draining. No acute distress present at this time. Bed is in lowest position. call light is within easy reach when in bed . Will continue to monitor.
--- NOTE | 2018-08-25 20:11 | NUR ---
NURSE NOTES: Patient was transferred to Med/Surg floor room 416-1 via bed accompanied by 2 RNs. Report given to CHARLETTE Denise at bed side. no acute distress noted. patient currently sleeping. Belongings signed with Camelia.
--- NOTE | 2018-08-25 20:16 | NUR ---
NURSE NOTES: Received patient comfortably sleeping,no SOB noted.
[2018-08-25 20:25] VITALS: BP 122/66
[2018-08-25] MEDS ORDERED: Miralax 17gm pkt ORAL PRN (20:27)
[2018-08-25] MEDS ORDERED: Albuterol/Ipratropium 3ml neb HHN PRN (20:27)
[2018-08-25] MEDS ORDERED: Tubing IV Secondary IV ONE (21:21)
[2018-08-25] MEDS ORDERED: NS 275ml ONE (21:21)
[2018-08-26 00:18] VITALS: BP 99/47
[2018-08-26 04:00] VITALS: BP 110/60
--- NOTE | 2018-08-26 07:07 | NUR ---
HAND-OFF: Report given to Parth Isabel RN.
[2018-08-26 08:00] VITALS: BP 117/57
[2018-08-26] MEDS: Eliquis 2.5mg tablet ORAL SCH ×2 (08:43→17:47)
--- NOTE | 2018-08-26 09:00 | NUR ---
NURSE NOTES: RN MADE DR SAMAYOA AWARE OF LOW PLATELET LEVEL TODAY AND ON ELIQUIS 5MG PO BID. RN RECOMMENDED PARAMETERS. MD DID NOT WANT TO ORDER PARAMETERS. ELIQUIS ADMINISTERED ORDERED. NO S/S BLEEDING NOTED. WILL CONTINUE TO MONITOR.
--- NOTE | 2018-08-26 09:13 | NUR ---
NURSE NOTES: PT AXOX4, CALM, RESTING IN BED. STATES PAIN 5/10 ON RIGHT ANKLE. DENIES NEW ONSET OF PAIN. RN LEFT MESSAGE FOR DR SAMAYOA REGARDING PT'S REQUEST FOR PAIN MEDICATION. NO PRN PAIN MEDS AVAILABLE AT THIS TIME. BED IN LOWEST POSITION WITH BEDSIDE RAILS X3 RAISED. ROBERTSON CATH DRAINING LIGHT MARIEL URINE BY GRAVITY. WILL CONTINUE TO MONITOR.
[2018-08-26] MEDS: acetaZOLAMIDE 500mg Inj IVP SCH ×2 (09:30→22:01)
--- NOTE | 2018-08-26 10:30 | NUR ---
NURSE NOTES: RECEIVED ORDER FROM DR SAMAYOA FOR [place] 5/325 PO PRN PAIN Q6H.
[2018-08-26] MEDS: HYDROcodone/Acetamin 5/325 tab ORAL PRN ×2 (11:55→17:48)
[2018-08-26 12:00] VITALS: BP 113/52
--- NOTE | 2018-08-26 12:48 | Internal Med Progress Note ---
Subjective Date of Service: Aug 26, 2018 Physician Name Juan Dutta Attending Physician Yonathan Mendoza MD Current Medications Medications (Trade) Dose Ordered Sig/Ibrahima Route PRN Reason Start Time Stop Time Status Last Admin Dose Admin Acetaminophen (Tylenol) 650 mg Q4H PRN ORAL Fever (temp>100.5F) 08/25/18 20:27 09/24/18 20:26 Acetaminophen/ Hydrocodone Bitart ([place] 5/325) 1 tab Q6H PRN ORAL For Pain 08/26/18 09:30 09/02/18 09:29 08/26/18 11:55 Acetazolamide (Diamox 500mg Inj) 250 mg EVERY 12 HOURS IVP 08/25/18 21:00 09/23/18 20:59 08/26/18 09:30 Albuterol/ Ipratropium (Albuterol/ Ipratropium) 3 ml Q4H PRN HHN Shortness of Breath 08/25/18 20:27 08/30/18 20:26 Apixaban (Eliquis) 5 mg BID ORAL 08/26/18 09:00 09/22/18 17:59 08/26/18 08:43 Dextrose (Dextrose 50%) 25 ml Q30M PRN IV Hypoglycemia 08/25/18 20:30 09/22/18 08:29 Dextrose (Dextrose 50%) 50 ml Q30M PRN IV Hypoglycemia 08/25/18 20:30 09/22/18 08:29 Furosemide (Lasix) 40 mg EVERY 8 HOURS IV 08/25/18 22:00 09/22/18 21:59 08/26/18 06:02 Ondansetron HCl (Zofran) 4 mg Q6H PRN IVP Nausea & Vomiting 08/25/18 20:30 09/22/18 08:29 Polyethylene Glycol (Miralax) 17 gm DAILYPRN PRN ORAL Constipation 08/25/18 20:27 09/24/18 20:26 Risperidone (RisperDAL) 1 mg BEDTIME ORAL 08/25/18 21:00 09/22/18 20:59 08/25/18 21:04 Temazepam (Restoril) 15 mg HSPRN PRN ORAL Insomnia 08/25/18 20:28 09/01/18 20:27 08/25/18 21:04 Allergies: Coded Allergies: PIPERACILLIN (Unverified Allergy, Unknown, 05/21/18) tolerates cephalosporins TAZOBACTAM (Unverified Allergy, Unknown, 03/10/18) ROS Limited/Unobtainable: Yes Subjective 77 YO F admitted with respiratory failure. Cover for Int med-Dr Mendoza. Tolerating nasal canula Objective Last Vital Signs Date Time Temp Pulse Resp B/P (MAP) Pulse Ox O2 Delivery O2 Flow Rate FiO2 08/26/18 12:00 2.0 08/26/18 12:00 98.2 72 20 113/52 (72) 96 08/26/18 09:00 Nasal Cannula 08/26/18 07:54 28 Laboratory Tests Test 08/25/18 13:30 Magnesium Level 1.5 MG/DL (1.8-2.4) L Intake and Output 08/25/18 08/26/18 19:00 07:00 Intake Total 1070.0 ml 340 ml Output Total 500 ml 1000 ml Balance 570.0 ml -660 ml Intake Oral 400 ml 240 ml IV Total 670.0 ml 100 ml Output Urine Total 500 ml 1000 ml Objective PHYSICAL EXAMINATION: GENERAL: The patient is a well-developed and well-nourished white female, in no apparent distress. HEENT: Eyes, pupils are equal and responsive to light and accommodation. Extraocular movements intact. NECK: Supple without lymphadenopathy. CHEST: BIPAP; Lungs are with decreased breath sounds bilateral bases with crackles. Otherwise, without wheezes or rales. CARDIOVASCULAR: Regular rhythm and rate. S1, S2 are normal without murmurs, rubs, or gallops. ABDOMEN: Soft, nontender, and nondistended. Positive bowel sounds. No evidence of hepatosplenomegaly. Currently, no rebound or guarding noted. EXTREMITIES: Negative for clubbing, cyanosis, or edema. RECTAL/GENITAL: Refused. NEUROLOGIC: Cranial nerves II through XII are grossly intact without focal deficits. Motor strength is 5/5 bilaterally. Deep tendon reflexes are 2+ plantar. Assessment/Plan Assessment/Plan ASSESSMENT: This is a 77-year-old white female. 1. Respiratory failure/respiratory acidosis 2. Pneumonia. 3. History of chronic obstructive pulmonary disease. 4. Atrial flutter. 5. Congestive heart failure. 6. History of coronary artery disease. 7. Hypertension. 8. Seizure disorder. 9. Paranoid schizophrenia. 10. Depression. TREATMENT: 1. Respiratory failure/pneumonia. A Pulmonary consultation has been obtained with Dr. Mendel Sierra. The patient is currently tolerating nasal canula. The patient has been started empirically on DuoNebs every 4 hours. This may be secondary to COPD exacerbation versus congestive heart failure. We will follow recommendations of Pulmonary. 2. History of atrial flutter/history of intraventricular pacemaker. Cardiology consultation is pending. 3. Congestive heart failure. The patient is currently receiving Lasix. 4. History of coronary artery disease. 5. Hypertension. The patient is currently hypotensive. 6. History of seizure disorder. 7. Paranoid schizophrenia. 8. Depression. Juan Dutta MD Aug 26, 2018 12:48
--- NOTE | 2018-08-26 14:30 | Pulmonology Progress Note ---
Assessment/Plan Problems: (1) Respiratory failure, acute (2) Pulmonary edema (3) Acute diastolic CHF (congestive heart failure) (4) COPD (chronic obstructive pulmonary disease) (5) Gout Assessment/Plan 3.6 liters of output the pulmonary edema is completely resolved doing better all reviewed cardiology appreciated titrate bipap, tolerating off bipap respiratory treatment diuretics titrate fio2 to sat of 92% monitor electrolytes dvt prophylaxis DNR is appropriate. Subjective ROS Limited/Unobtainable: No Constitutional: Reports: no symptoms HEENT: Repors: no symptoms Respiratory: Reports: no symptoms Allergies: Coded Allergies: PIPERACILLIN (Unverified Allergy, Unknown, 05/21/18) tolerates cephalosporins TAZOBACTAM (Unverified Allergy, Unknown, 03/10/18) Objective Last 24 Hour Vital Signs Date Time Temp Pulse Resp B/P (MAP) Pulse Ox O2 Delivery O2 Flow Rate FiO2 08/26/18 12:00 2.0 08/26/18 12:00 98.2 72 20 113/52 (72) 96 08/26/18 09:00 Nasal Cannula 2.0 08/26/18 08:00 2.0 08/26/18 08:00 97.7 83 22 117/57 (77) 95 08/26/18 07:54 Nasal Cannula 2.0 28 08/26/18 07:54 97 Nasal Cannula 2.0 28 08/26/18 04:00 98.6 82 18 110/60 (77) 94 08/26/18 04:00 2.0 08/26/18 00:18 98.4 83 20 99/47 (64) 96 08/25/18 23:53 73 24 Nasal Cannula 3.0 32 08/25/18 20:25 97.7 76 22 122/66 (84) 91 08/25/18 20:21 2.0 08/25/18 20:00 Nasal Cannula 2.0 08/25/18 16:00 2.0 08/25/18 16:00 Bi-pap 08/25/18 16:00 77 08/25/18 16:00 98.0 85 30 102/57 (72) 85 Intake and Output 08/25/18 08/26/18 19:00 07:00 Intake Total 1070.0 ml 340 ml Output Total 500 ml 1000 ml Balance 570.0 ml -660 ml Intake Oral 400 ml 240 ml IV Total 670.0 ml 100 ml Output Urine Total 500 ml 1000 ml General Appearance: cachetic HEENT: normocephalic, atraumatic Respiratory/Chest: chest wall non-tender, lungs clear Breasts: no masses Cardiovascular: normal rate Abdomen: normal bowel sounds, no organomegaly Genitourinary: normal external genitalia Skin: no rash Current Medications Medications (Trade) Dose Ordered Sig/Ibrahima Route PRN Reason Start Time Stop Time Status Last Admin Dose Admin Acetaminophen (Tylenol) 650 mg Q4H PRN ORAL Fever (temp>100.5F) 08/25/18 20:27 09/24/18 20:26 Acetaminophen/ Hydrocodone Bitart ([place] 5/325) 1 tab Q6H PRN ORAL For Pain 08/26/18 09:30 09/02/18 09:29 08/26/18 11:55 Acetazolamide (Diamox 500mg Inj) 250 mg EVERY 12 HOURS IVP 08/25/18 21:00 09/23/18 20:59 08/26/18 09:30 Albuterol/ Ipratropium (Albuterol/ Ipratropium) 3 ml Q4H PRN HHN Shortness of Breath 08/25/18 20:27 08/30/18 20:26 Apixaban (Eliquis) 5 mg BID ORAL 08/26/18 09:00 09/22/18 17:59 08/26/18 08:43 Dextrose (Dextrose 50%) 25 ml Q30M PRN IV Hypoglycemia 08/25/18 20:30 09/22/18 08:29 Dextrose (Dextrose 50%) 50 ml Q30M PRN IV Hypoglycemia 08/25/18 20:30 09/22/18 08:29 Furosemide (Lasix) 40 mg EVERY 8 HOURS IV 08/25/18 22:00 09/22/18 21:59 08/26/18 14:16 Ondansetron HCl (Zofran) 4 mg Q6H PRN IVP Nausea & Vomiting 08/25/18 20:30 09/22/18 08:29 Polyethylene Glycol (Miralax) 17 gm DAILYPRN PRN ORAL Constipation 08/25/18 20:27 09/24/18 20:26 Risperidone (RisperDAL) 1 mg BEDTIME ORAL 08/25/18 21:00 09/22/18 20:59 08/25/18 21:04 Temazepam (Restoril) 15 mg HSPRN PRN ORAL Insomnia 08/25/18 20:28 09/01/18 20:27 08/25/18 21:04 Mendel Sierra MD Aug 26, 2018 14:30
[2018-08-26 16:00] VITALS: BP 102/40
--- NOTE | 2018-08-26 19:35 | NUR ---
HAND-OFF: Report given to Wilton SILVA RN.
[2018-08-26 20:00] VITALS: BP 108/45
--- NOTE | 2018-08-26 20:34 | Cardiology Progress Note ---
Assessment/Plan Assessment/Plan 1. Permanent atrial fibrillation/flutter. 2. History of permanent pacemaker implantation, leadless device. 3. COPD. 4. Diastolic heart failure. 5. Bilateral pleural effusion. 6. Pulmonary hypertension. 7. Mild to moderate mitral and aortic valvular disease. 8. Dementia. 9. AMS 10. Respiratory acidosis better overall tele noted afib keep on diuretic swith to po soon noted and agree with diamox bipap as need now on med surge all trop neg mg supplement abx if felt appropriate by dr sylvester Subjective Cardiovascular: Denies: chest pain, palpitations Respiratory: Denies: shortness of breath Gastrointestinal/Abdominal: Denies: abdominal pain Genitourinary: Denies: burning Objective Last 24 Hour Vital Signs Date Time Temp Pulse Resp B/P (MAP) Pulse Ox O2 Delivery O2 Flow Rate FiO2 08/26/18 16:00 98.8 79 24 102/40 (60) 98 08/26/18 16:00 2.0 08/26/18 12:00 2.0 08/26/18 12:00 98.2 72 20 113/52 (72) 96 08/26/18 09:00 Nasal Cannula 2.0 08/26/18 08:00 2.0 08/26/18 08:00 97.7 83 22 117/57 (77) 95 08/26/18 07:54 Nasal Cannula 2.0 28 08/26/18 07:54 97 Nasal Cannula 2.0 28 08/26/18 04:00 98.6 82 18 110/60 (77) 94 08/26/18 04:00 2.0 08/26/18 00:18 98.4 83 20 99/47 (64) 96 08/25/18 23:53 73 24 Nasal Cannula 3.0 32 General Appearance: no apparent distress, alert Neck: supple Cardiovascular: irregularly irregular Respiratory/Chest: lungs clear - ant Abdomen: normal bowel sounds, non tender, soft Extremities: no swelling Intake and Output 08/25/18 08/26/18 19:00 07:00 Intake Total 1070.0 ml 340 ml Output Total 500 ml 1000 ml Balance 570.0 ml -660 ml Intake Oral 400 ml 240 ml IV Total 670.0 ml 100 ml Output Urine Total 500 ml 1000 ml Akbar Reno MD Aug 26, 2018 20:34
[2018-08-27] VITALS: BP 103/65
[2018-08-27 04:00] VITALS: BP 115/58
[2018-08-27 06:31] LABS: BASOPHILS % (AUTO) 1.7 % (0.0-2.0); EOSINOPHILS % (AUTO) 2.7 % (0.0-3.0); HEMATOCRIT 31.1 % (37.0-47.0); HEMOGLOBIN 9.3 G/DL (12.0-16.0); LYMPHOCYTES % (AUTO) 15.7 % (20.0-45.0); MEAN CORPUSCULAR VOLUME 87 FL (80-99); MONOCYTES % (AUTO) 7.2 % (1.0-10.0); NEUTROPHILS % (AUTO) 72.7 % (45.0-75.0); PLATELET COUNT 150 K/UL (150-450); RED BLOOD COUNT 3.58 M/UL (4.20-5.40); RED CELL DISTRIBUTION WIDTH 19.5 % (11.6-14.8); WHITE BLOOD COUNT 7.1 K/UL (4.8-10.8)
[2018-08-27 07:01] LABS: ANION GAP 0 mmol/L (5-15); BLOOD UREA NITROGEN 13 mg/dL (7-18); CALCIUM 8.6 MG/DL (8.5-10.1); CHLORIDE 92 MMOL/L (98-107); CREATININE 0.6 MG/DL (0.55-1.30); POTASSIUM 3.2 MMOL/L (3.5-5.1); SODIUM 137 MMOL/L (136-145)
--- NOTE | 2018-08-27 07:01 | NUR ---
HAND-OFF: Report given to Chalo OVALLES.
[2018-08-27 07:02] LABS: CARBON DIOXIDE 43 MMOL/L (21-32)
--- NOTE | 2018-08-27 07:09 | NUR ---
NURSE NOTES: DR AGGARWAL MADE AWARE OF CRITICAL VALUE CARBON DIOXIDE 43. NO NEW ORDERS GIVEN.
[2018-08-27 08:00] VITALS: BP 121/49
[2018-08-27] MEDS: Eliquis 2.5mg tablet ORAL SCH ×2 (08:22→17:24)
[2018-08-27] MEDS: acetaZOLAMIDE 500mg Inj IVP SCH ×2 (09:04→21:05)
--- NOTE | 2018-08-27 09:35 | NUR ---
NURSE NOTES: PT AXOX3, CALM, RESTING IN BED. IN NO APPARENT DISTRESS AT THIS TIME. ROBERTSON CATH DRAINING YELLOW URINE BY GRAVITY. BED IN LOWEST POSITION WITH HOB ELEVATED. CALL LIGHT WITHIN REACH. WILL CONTINUE TO MONITOR.
[2018-08-27 12:00] VITALS: BP 124/64
--- NOTE | 2018-08-27 12:45 | Pulmonology Progress Note ---
Assessment/Plan Problems: (1) Respiratory failure, acute (2) Pulmonary edema (3) Acute diastolic CHF (congestive heart failure) (4) COPD (chronic obstructive pulmonary disease) (5) Gout Assessment/Plan doing better the pulmonary edema is completely resolved doing better all reviewed cardiology appreciated titrate bipap, tolerating off bipap respiratory treatment diuretics titrate fio2 to sat of 92% monitor electrolytes dvt prophylaxis DNR is appropriate. Subjective ROS Limited/Unobtainable: No Constitutional: Reports: no symptoms HEENT: Repors: no symptoms Respiratory: Reports: no symptoms Allergies: Coded Allergies: PIPERACILLIN (Unverified Allergy, Unknown, 05/21/18) tolerates cephalosporins TAZOBACTAM (Unverified Allergy, Unknown, 03/10/18) Objective Last 24 Hour Vital Signs Date Time Temp Pulse Resp B/P (MAP) Pulse Ox O2 Delivery O2 Flow Rate FiO2 08/27/18 09:00 Nasal Cannula 2.0 08/27/18 08:00 97.5 69 20 121/49 (73) 99 08/27/18 08:00 2.0 08/27/18 04:00 98.2 70 16 115/58 (77) 98 08/27/18 04:00 2.0 08/27/18 00:00 2.0 08/27/18 00:00 98.4 77 18 103/65 (78) 98 08/26/18 21:05 Nasal Cannula 2.0 28 08/26/18 21:05 96 Nasal Cannula 2.0 28 08/26/18 21:00 Nasal Cannula 2.0 08/26/18 20:00 98.1 80 20 108/45 (66) 96 08/26/18 16:00 98.8 79 24 102/40 (60) 98 08/26/18 16:00 2.0 Intake and Output 08/26/18 08/27/18 18:59 06:59 Intake Total 480 ml Output Total 250 ml Balance 480 ml -250 ml Intake Oral 480 ml Output Urine Total 250 ml Stool Total 0 ml # Bowel Movements 1 General Appearance: WD/WN HEENT: normocephalic, atraumatic Respiratory/Chest: chest wall non-tender, lungs clear Cardiovascular: normal peripheral pulses, normal rate Abdomen: normal bowel sounds, non distended Genitourinary: normal external genitalia Extremities: no clubbing Neurologic/Psychiatric: no motor/sensory deficits Lymphatic: no neck adenopathy Laboratory Tests 08/27/18 05:00: White Blood Count 7.1, Red Blood Count 3.58L, Hemoglobin 9.3L, Hematocrit 31.1L , Mean Corpuscular Volume 87, Mean Corpuscular Hemoglobin 26.0L, Mean Corpuscular Hemoglobin Concent 29.9L, Red Cell Distribution Width 19.5H, Platelet Count 150, Mean Platelet Volume 7.2, Neutrophils (%) (Auto) 72.7, Lymphocytes (%) (Auto) 15.7L, Monocytes (%) (Auto) 7.2, Eosinophils (%) (Auto) 2.7, Basophils (%) (Auto) 1.7, Sodium Level 137, Potassium Level 3.2L, Chloride Level 92L, Carbon Dioxide Level 43*H, Anion Gap 0L, Blood Urea Nitrogen 13, Creatinine 0.6, Estimat Glomerular Filtration Rate , Glucose Level 94, Calcium Level 8.6 Current Medications Medications (Trade) Dose Ordered Sig/Ibrahima Route PRN Reason Start Time Stop Time Status Last Admin Dose Admin Acetaminophen (Tylenol) 650 mg Q4H PRN ORAL Fever (temp>100.5F) 08/25/18 20:27 09/24/18 20:26 Acetaminophen/ Hydrocodone Bitart ([place] 5/325) 1 tab Q6H PRN ORAL For Pain 08/26/18 09:30 09/02/18 09:29 08/26/18 17:48 Acetazolamide (Diamox 500mg Inj) 250 mg EVERY 12 HOURS IVP 08/25/18 21:00 09/23/18 20:59 08/27/18 09:04 Albuterol/ Ipratropium (Albuterol/ Ipratropium) 3 ml Q4H PRN HHN Shortness of Breath 08/25/18 20:27 08/30/18 20:26 Apixaban (Eliquis) 5 mg BID ORAL 08/26/18 09:00 09/22/18 17:59 08/27/18 08:22 Dextrose (Dextrose 50%) 25 ml Q30M PRN IV Hypoglycemia 08/25/18 20:30 09/22/18 08:29 Dextrose (Dextrose 50%) 50 ml Q30M PRN IV Hypoglycemia 08/25/18 20:30 09/22/18 08:29 Furosemide (Lasix) 40 mg EVERY 8 HOURS IV 08/25/18 22:00 09/22/18 21:59 08/26/18 14:16 Ondansetron HCl (Zofran) 4 mg Q6H PRN IVP Nausea & Vomiting 08/25/18 20:30 09/22/18 08:29 Polyethylene Glycol (Miralax) 17 gm DAILYPRN PRN ORAL Constipation 08/25/18 20:27 09/24/18 20:26 Risperidone (RisperDAL) 1 mg BEDTIME ORAL 08/25/18 21:00 09/22/18 20:59 08/26/18 21:58 Temazepam (Restoril) 15 mg HSPRN PRN ORAL Insomnia 08/25/18 20:28 09/01/18 20:27 08/25/18 21:04 Mendel Sierra MD Aug 27, 2018 12:45
--- NOTE | 2018-08-27 14:02 | NUR ---
RD ASSESSMENT & RECOMMENDATIONS SEE CARE ACTIVITY FOR COMPLETE ASSESSMENT DAILY ESTIMATED NEEDS: Needs based on Pulmonary, Cardiac/ 54kg abw 25-30 kcals/kg 6950-6954 total kcals 1-1.5 g protein/kg 54-81 g total protein 20-25 mL/kg 7597-6003 total fluid mLs NUTRITION DIAGNOSIS: Altered nutrition related lab values R/T clinical condition as evidenced by low K (3.2), low mag (1.5), elev BNP (2448), critically elev CO2 (43) CURRENT DIET:CATHY/ mech soft chopped PO DIET RECOMMENDATIONS: LOW NA/ texture per PERSONAL CARER ADDITIONAL RECOMMENDATIONS: * Calibrated bedscale wt for accurate CBW * Monitor lytes daily w/ lasix, replete as needed .
--- NOTE | 2018-08-27 14:08 | NUR ---
NURSE NOTES: DR AGGARWAL WITH NEW ORDER FOR KCL 20MEQ PO X1 FOR POTASSIUM LEVEL 3.2 TODAY.
[2018-08-27 16:00] VITALS: BP 117/49
--- NOTE | 2018-08-27 17:19 | Diagnostic Imaging Report ---
Indication: Dyspnea Comparison: 08/23/2018 A single view chest radiograph was obtained. Findings: Interstitial edema is present. The heart is enlarged. There may be a left pleural effusion. IMPRESSION: Worsening interstitial edema
--- NOTE | 2018-08-27 17:48 | Internal Med Progress Note ---
Subjective Date of Service: Aug 27, 2018 Physician Name Juan Dutta Attending Physician Yonathan Mendoza MD Current Medications Medications (Trade) Dose Ordered Sig/Ibrahima Route PRN Reason Start Time Stop Time Status Last Admin Dose Admin Acetaminophen (Tylenol) 650 mg Q4H PRN ORAL Fever (temp>100.5F) 08/25/18 20:27 09/24/18 20:26 Acetaminophen/ Hydrocodone Bitart ([place] 5/325) 1 tab Q6H PRN ORAL For Pain 08/26/18 09:30 09/02/18 09:29 08/26/18 17:48 Acetazolamide (Diamox 500mg Inj) 250 mg EVERY 12 HOURS IVP 08/25/18 21:00 09/23/18 20:59 08/27/18 09:04 Albuterol/ Ipratropium (Albuterol/ Ipratropium) 3 ml Q4H PRN HHN Shortness of Breath 08/25/18 20:27 08/30/18 20:26 Apixaban (Eliquis) 5 mg BID ORAL 08/26/18 09:00 09/22/18 17:59 08/27/18 17:24 Dextrose (Dextrose 50%) 25 ml Q30M PRN IV Hypoglycemia 08/25/18 20:30 09/22/18 08:29 Dextrose (Dextrose 50%) 50 ml Q30M PRN IV Hypoglycemia 08/25/18 20:30 09/22/18 08:29 Furosemide (Lasix) 40 mg EVERY 8 HOURS IV 08/25/18 22:00 09/22/18 21:59 08/27/18 13:48 Ondansetron HCl (Zofran) 4 mg Q6H PRN IVP Nausea & Vomiting 08/25/18 20:30 09/22/18 08:29 Polyethylene Glycol (Miralax) 17 gm DAILYPRN PRN ORAL Constipation 08/25/18 20:27 09/24/18 20:26 Risperidone (RisperDAL) 1 mg BEDTIME ORAL 08/25/18 21:00 09/22/18 20:59 08/26/18 21:58 Temazepam (Restoril) 15 mg HSPRN PRN ORAL Insomnia 08/25/18 20:28 09/01/18 20:27 08/25/18 21:04 Allergies: Coded Allergies: PIPERACILLIN (Unverified Allergy, Unknown, 05/21/18) tolerates cephalosporins TAZOBACTAM (Unverified Allergy, Unknown, 03/10/18) ROS Limited/Unobtainable: Yes Subjective 77 YO F admitted with respiratory failure. Cover for Int med-Dr Mendoza. Tolerating nasal canula Objective Last Vital Signs Date Time Temp Pulse Resp B/P (MAP) Pulse Ox O2 Delivery O2 Flow Rate FiO2 08/27/18 16:00 98.9 76 20 117/49 (71) 96 08/27/18 16:00 2.0 08/27/18 15:39 Nasal Cannula 28 Laboratory Tests Test 08/27/18 05:00 White Blood Count 7.1 K/UL (4.8-10.8) Red Blood Count 3.58 M/UL (4.20-5.40) L Hemoglobin 9.3 G/DL (12.0-16.0) L Hematocrit 31.1 % (37.0-47.0) L Mean Corpuscular Volume 87 FL (80-99) Mean Corpuscular Hemoglobin 26.0 PG (27.0-31.0) L Mean Corpuscular Hemoglobin Concent 29.9 G/DL (32.0-36.0) L Red Cell Distribution Width 19.5 % (11.6-14.8) H Platelet Count 150 K/UL (150-450) Mean Platelet Volume 7.2 FL (6.5-10.1) Neutrophils (%) (Auto) 72.7 % (45.0-75.0) Lymphocytes (%) (Auto) 15.7 % (20.0-45.0) L Monocytes (%) (Auto) 7.2 % (1.0-10.0) Eosinophils (%) (Auto) 2.7 % (0.0-3.0) Basophils (%) (Auto) 1.7 % (0.0-2.0) Sodium Level 137 MMOL/L (136-145) Potassium Level 3.2 MMOL/L (3.5-5.1) L Chloride Level 92 MMOL/L (98-107) L Carbon Dioxide Level 43 MMOL/L (21-32) *H Anion Gap 0 mmol/L (5-15) L Blood Urea Nitrogen 13 mg/dL (7-18) Creatinine 0.6 MG/DL (0.55-1.30) Estimat Glomerular Filtration Rate mL/min (>60) Glucose Level 94 MG/DL (74-106) Calcium Level 8.6 MG/DL (8.5-10.1) Intake and Output 08/26/18 08/27/18 19:00 07:00 Intake Total 480 ml Output Total 250 ml Balance 480 ml -250 ml Intake Oral 480 ml Output Urine Total 250 ml Stool Total 0 ml # Bowel Movements 1 Objective PHYSICAL EXAMINATION: GENERAL: The patient is a well-developed and well-nourished white female, in no apparent distress. HEENT: Eyes, pupils are equal and responsive to light and accommodation. Extraocular movements intact. NECK: Supple without lymphadenopathy. CHEST: Nasal canula; Lungs are with decreased breath sounds bilateral bases with crackles. Otherwise, without wheezes or rales. CARDIOVASCULAR: Regular rhythm and rate. S1, S2 are normal without murmurs, rubs, or gallops. ABDOMEN: Soft, nontender, and nondistended. Positive bowel sounds. No evidence of hepatosplenomegaly. Currently, no rebound or guarding noted. EXTREMITIES: Negative for clubbing, cyanosis, or edema. RECTAL/GENITAL: Refused. NEUROLOGIC: Cranial nerves II through XII are grossly intact without focal deficits. Motor strength is 5/5 bilaterally. Deep tendon reflexes are 2+ plantar. Assessment/Plan Assessment/Plan ASSESSMENT: This is a 77-year-old white female. 1. Respiratory failure/respiratory acidosis 2. Pneumonia. 3. History of chronic obstructive pulmonary disease. 4. Atrial flutter. 5. Congestive heart failure. 6. History of coronary artery disease. 7. Hypertension. 8. Seizure disorder. 9. Paranoid schizophrenia. 10. Depression. TREATMENT: 1. Respiratory failure/pneumonia. A Pulmonary consultation has been obtained with Dr. Mendel Sierra. The patient is currently tolerating nasal canula. The patient has been started empirically on DuoNebs every 4 hours. This may be secondary to COPD exacerbation versus congestive heart failure. We will follow recommendations of Pulmonary. 2. History of atrial flutter/history of intraventricular pacemaker. Cardiology consultation is pending. 3. Congestive heart failure. The patient is currently receiving Lasix. 4. History of coronary artery disease. 5. Hypertension. The patient is currently hypotensive. 6. History of seizure disorder. 7. Paranoid schizophrenia. 8. Depression. Juan Dutta MD Aug 27, 2018 17:48
--- NOTE | 2018-08-27 19:27 | NUR ---
HAND-OFF: Report given to Dora BEST RN.
--- NOTE | 2018-08-27 19:30 | NUR ---
NURSE NOTES:received patient, awake, confused, on o2 2l, fall precautions in effect.
[2018-08-27 20:00] VITALS: BP 118/53
[2018-08-28] VITALS: BP 131/53
[2018-08-28 04:00] VITALS: BP 126/80
[2018-08-28 07:06] LABS: BASOPHILS % (AUTO) 1.1 % (0.0-2.0); EOSINOPHILS % (AUTO) 2.3 % (0.0-3.0); HEMOGLOBIN 10.5 G/DL (12.0-16.0); LYMPHOCYTES % (AUTO) 14.2 % (20.0-45.0); MEAN CORPUSCULAR VOLUME 86 FL (80-99); MONOCYTES % (AUTO) 9.3 % (1.0-10.0); NEUTROPHILS % (AUTO) 73.1 % (45.0-75.0); PLATELET COUNT 162 K/UL (150-450); RED BLOOD COUNT 3.96 M/UL (4.20-5.40); RED CELL DISTRIBUTION WIDTH 19.1 % (11.6-14.8); WHITE BLOOD COUNT 7.9 K/UL (4.8-10.8)
[2018-08-28 07:11] LABS: BLOOD UREA NITROGEN 12 mg/dL (7-18); CALCIUM 8.7 MG/DL (8.5-10.1); CHLORIDE 94 MMOL/L (98-107); CREATININE 0.6 MG/DL (0.55-1.30); POTASSIUM 2.9 MMOL/L (3.5-5.1); SODIUM 140 MMOL/L (136-145)
[2018-08-28 07:15] LABS: CARBON DIOXIDE > 45 MMOL/L (21-32)
[2018-08-28 08:00] VITALS: BP 137/63
--- NOTE | 2018-08-28 08:00 | NUR ---
NURSE NOTES: Patient received sleeping in bed with nasal cannula at 2/min. No signs of respiratory distress or pain noted. López catheter patent and intact. IV site observed on right wrist. MD informed of critical carbon dioxide lab this morning. HOB elevated, bed locked in lowest position. Call light placed within reach, will continue to monitor.
--- NOTE | 2018-08-28 08:02 | NUR ---
HAND-OFF: Report given to trina vickers, informed message left for Rigo chambers re critical serum Co2 >45.
[2018-08-28] MEDS: acetaZOLAMIDE 500mg Inj IVP SCH ×2 (08:11→21:56)
[2018-08-28] MEDS: Eliquis 2.5mg tablet ORAL SCH ×2 (08:11→18:05)
--- NOTE | 2018-08-28 11:56 | NUR ---
ST NOTE: BEDSIDE SWALLOW EVAL RECEIVED BEDSIDE SWALLOW EVAL ORDER CHART REVIEWED PRIOR THE EVALUATION PT IS A 77-YEAR-OLD FEMALE WHO WAS ADMITTED DUE TO RESP DISTRESS. DYSPHAGIA RISK FACTORS: RESP DISTRESS, H/O DYSPHAGIA(MILD TO MOD PER [facility] [place] 03[place]11[place] [facility] [place] COPD, H/O CVA(PER CT HEAD IN 08/2015: OLD BILATERAL BASAL GANGLIA LACUNAR INFARCTS), H/O EPILEPSY, HTN, GERD, CARDIAC PACEMAKER, PSYCH(PARANOID SCHIZOPHRENIA AND MAJOR DEPRESSIVE DISORDER) PLOF: PT RESIDES AT SNF. PER CHART, PT WAS ON MECH SOFT WITH THIN LIQUIDS DIET. PER PT'S POLST: DNR/DNI, OKAY WITH LONG-TERM ARTIFICIAL NUTRITION, INCLUDING FEEDING TUBES. [place] [facility] [place]: TRACE LARYNGEAL PENETRATION BEFORE SWALLOW WITH THIN LIQUIDS VIA CUP AND STRAW. NO ASPIRATION WAS NOTED. RECOMMENDED CATHY MECH SOFT(CHOPPED) WITH NECTAR THICK LIQUIDS. PER B/S EVAL ON 05/25/18: S/S OF AT LEAST PERSISTENT MILD OR WORSENED OROPHARYNGEAL DYSPHAGIA PT REFUSED THICKENED LIQUIDS, DIET RECOMMENDED MECH SOFT(CHOPPED) W/THIN LIQUIDS. CURRENT STATUS: PT SEEN AT BEDSIDE IN AM. ALERT AND COOPERATIVE, CONFUSED. ORIENTED X 1-2, PT WITH NASAL CANNULA(2L). PT COMPLAINED ABOUT THE FOOD. GIVEN PO TRIALS: THIN(STRAW-ONE SIP AT A TIME), PUREE(TSP) AND CRACKER INITIAL IMPRESSION: S/S OF AT LEAST MILD OR WORSENED OROPHARYNGEAL DYSPHAGIA SLOW MASTICATION PT IS EDENTULOUS. MILDLY INCREASED ORAL TRANSIT TIME AND OROPHARYNGEAL TRANSIT TIME, FAIR TO GOOD LARYNGEAL ELEVATION, NO OVERT S/S OF ASPIRATION. PT HAS RISK FOR ASPIRATION DUE TO PT HAS H/O DEMENTIA AND CVA. RECOMMENDATIONS: 1. FOR QUALITY OF LIFE, CONTINUE MODIFIED SOFT, EASY CHEW WITH THIN LIQUIDS.(ASSIST PT DURING MEAL, CUT THE FOOD). (PT DOESN'T WANT TO DOWNGRADE THE FOOD AND DISLIKES THICKENED LIQUIDS). 2. STRICT ASPIRATION/REFLUX PRECAUTIONS WITH 1TO1 SUPERVISION 3. MODIFIED BARIUM SWALLOW STUDY IP OR OP. D/W PT AND NIRMAL OVALLES. POSTED ASPIRATION/REFLUX PRECAUTIONS SIGN.
[2018-08-28 12:00] VITALS: BP 133/54
[2018-08-28] MEDS ORDERED: FUROSEMIDE40 MG ORAL (15:37)
--- NOTE | 2018-08-28 15:38 | Pulmonology Progress Note ---
Assessment/Plan Problems: (1) Respiratory failure, acute (2) Pulmonary edema (3) Acute diastolic CHF (congestive heart failure) (4) COPD (chronic obstructive pulmonary disease) (5) Gout Assessment/Plan doing better wants to get discharged the pulmonary edema is completely resolved doing better all reviewed cardiology appreciated respiratory treatment diuretics titrate fio2 to sat of 92% monitor electrolytes dvt prophylaxis DNR is appropriate. Subjective ROS Limited/Unobtainable: No Constitutional: Reports: no symptoms HEENT: Repors: no symptoms Allergies: Coded Allergies: PIPERACILLIN (Unverified Allergy, Unknown, 05/21/18) tolerates cephalosporins TAZOBACTAM (Unverified Allergy, Unknown, 03/10/18) Objective Last 24 Hour Vital Signs Date Time Temp Pulse Resp B/P (MAP) Pulse Ox O2 Delivery O2 Flow Rate FiO2 08/28/18 12:00 98.4 62 20 133/54 (80) 99 08/28/18 12:00 2.0 08/28/18 09:00 Nasal Cannula 2.0 08/28/18 08:30 Nasal Cannula 2.0 28 08/28/18 08:30 95 Nasal Cannula 2.0 28 08/28/18 08:00 97.4 67 20 137/63 (87) 96 08/28/18 08:00 2.0 08/28/18 04:00 98.4 76 16 126/80 (95) 94 08/28/18 04:00 2.0 08/28/18 00:00 98.2 74 16 131/53 (79) 91 08/27/18 21:00 Nasal Cannula 2.0 08/27/18 20:00 2.0 08/27/18 20:00 98.2 74 19 118/53 (74) 96 08/27/18 19:40 Nasal Cannula 2.0 28 08/27/18 19:40 97 Nasal Cannula 2.0 28 08/27/18 16:00 98.9 76 20 117/49 (71) 96 08/27/18 16:00 2.0 08/27/18 15:39 Nasal Cannula 2.0 28 Intake and Output 08/27/18 08/28/18 18:59 06:59 Intake Total 600 ml Output Total 1600 ml 2100 ml Balance -1000 ml -2100 ml Intake Oral 600 ml Output Urine Total 1600 ml 2100 ml Objective General Appearance: WD/WN HEENT: normocephalic, atraumatic Respiratory/Chest: chest wall non-tender, lungs clear Cardiovascular: normal peripheral pulses, normal rate Abdomen: normal bowel sounds, no organomegaly Genitourinary: normal external genitalia Extremities: no cyanosis Neurologic/Psychiatric: nc manager II-XII grossly normal Lymphatic: no neck adenopathy Laboratory Tests 08/28/18 06:05: White Blood Count 7.9, Red Blood Count 3.96L, Hemoglobin 10.5L, Hematocrit 34.0L , Mean Corpuscular Volume 86, Mean Corpuscular Hemoglobin 26.6L, Mean Corpuscular Hemoglobin Concent 31.0L, Red Cell Distribution Width 19.1H, Platelet Count 162, Mean Platelet Volume 8.5, Neutrophils (%) (Auto) 73.1, Lymphocytes (%) (Auto) 14.2L, Monocytes (%) (Auto) 9.3, Eosinophils (%) (Auto) 2.3, Basophils (%) (Auto) 1.1, Sodium Level 140, Potassium Level 2.9L, Chloride Level 94L, Carbon Dioxide Level > 45*H, Blood Urea Nitrogen 12, Creatinine 0.6, Estimat Glomerular Filtration Rate , Glucose Level 87, Calcium Level 8.7 Current Medications Medications (Trade) Dose Ordered Sig/Ibrahima Route PRN Reason Start Time Stop Time Status Last Admin Dose Admin Acetaminophen (Tylenol) 650 mg Q4H PRN ORAL Fever (temp>100.5F) 08/25/18 20:27 09/24/18 20:26 Acetaminophen/ Hydrocodone Bitart ([place] 5/325) 1 tab Q6H PRN ORAL For Pain 08/26/18 09:30 09/02/18 09:29 08/26/18 17:48 Acetazolamide (Diamox 500mg Inj) 250 mg EVERY 12 HOURS IVP 08/25/18 21:00 09/23/18 20:59 08/28/18 08:11 Albuterol/ Ipratropium (Albuterol/ Ipratropium) 3 ml Q4H PRN HHN Shortness of Breath 08/25/18 20:27 08/30/18 20:26 Apixaban (Eliquis) 5 mg BID ORAL 08/26/18 09:00 09/22/18 17:59 08/28/18 08:11 Dextrose (Dextrose 50%) 25 ml Q30M PRN IV Hypoglycemia 08/25/18 20:30 09/22/18 08:29 Dextrose (Dextrose 50%) 50 ml Q30M PRN IV Hypoglycemia 08/25/18 20:30 09/22/18 08:29 Furosemide (Lasix) 40 mg EVERY 8 HOURS IV 08/25/18 22:00 09/22/18 21:59 08/28/18 14:41 Ondansetron HCl (Zofran) 4 mg Q6H PRN IVP Nausea & Vomiting 08/25/18 20:30 09/22/18 08:29 Polyethylene Glycol (Miralax) 17 gm DAILYPRN PRN ORAL Constipation 08/25/18 20:27 09/24/18 20:26 Risperidone (RisperDAL) 1 mg BEDTIME ORAL 08/25/18 21:00 09/22/18 20:59 08/27/18 21:04 Temazepam (Restoril) 15 mg HSPRN PRN ORAL Insomnia 08/25/18 20:28 09/01/18 20:27 08/25/18 21:04 Mendel Sierra MD Aug 28, 2018 15:38
[2018-08-28 16:00] VITALS: BP 129/61
--- NOTE | 2018-08-28 17:51 | NUR ---
CASE MANAGEMENT: REVIEW SI: PULMONARY EDEMA . COPD . CHF T 98.4 HR 62 RR 20 BP 133/54 SAT NC/2L H/H 10.5/34.0 K+ 2.9 CO2 >45 IS: LASIX IV Q8HR ELIQUIS PO BID ALBUTEROL HHN Q4HR PRN MED/SURG STATUS DCP: PATIENT IS FROM [facility]
--- NOTE | 2018-08-28 17:58 | NUR ---
CASE MANAGEMENT: DCPNOTE PER MD ORDER PATIENT REFERRED BACK TO [facility] [phone] CM WILL F/U Addendum: 08/29/18 at 1111 by NORBERTO FULLER ROOM ASSIGNMENT [id number]
--- NOTE | 2018-08-28 19:23 | NUR ---
HAND-OFF: Report given to Nathaly OVALLES.
--- NOTE | 2018-08-28 19:42 | NUR ---
NURSE NOTES: pt received awake, alert asking for ice cream, able to make needs known, waiting for [facility] to call back saying they have the BIPAP, potts catheter in place. will continue to monitor until pt is picked up
--- NOTE | 2018-08-28 19:48 | Internal Med Progress Note ---
Subjective Date of Service: Aug 28, 2018 Physician Name Juan Dutta Attending Physician Yonathan Mendoza MD Current Medications Medications (Trade) Dose Ordered Sig/Ibrahima Route PRN Reason Start Time Stop Time Status Last Admin Dose Admin Acetaminophen (Tylenol) 650 mg Q4H PRN ORAL Fever (temp>100.5F) 08/25/18 20:27 09/24/18 20:26 Acetaminophen/ Hydrocodone Bitart ([place] 5/325) 1 tab Q6H PRN ORAL For Pain 08/26/18 09:30 09/02/18 09:29 08/26/18 17:48 Acetazolamide (Diamox 500mg Inj) 250 mg EVERY 12 HOURS IVP 08/25/18 21:00 09/23/18 20:59 08/28/18 08:11 Albuterol/ Ipratropium (Albuterol/ Ipratropium) 3 ml Q4H PRN HHN Shortness of Breath 08/25/18 20:27 08/30/18 20:26 Apixaban (Eliquis) 5 mg BID ORAL 08/26/18 09:00 09/22/18 17:59 08/28/18 18:05 Dextrose (Dextrose 50%) 25 ml Q30M PRN IV Hypoglycemia 08/25/18 20:30 09/22/18 08:29 Dextrose (Dextrose 50%) 50 ml Q30M PRN IV Hypoglycemia 08/25/18 20:30 09/22/18 08:29 Furosemide (Lasix) 40 mg EVERY 8 HOURS IV 08/25/18 22:00 09/22/18 21:59 08/28/18 14:41 Ondansetron HCl (Zofran) 4 mg Q6H PRN IVP Nausea & Vomiting 08/25/18 20:30 09/22/18 08:29 Polyethylene Glycol (Miralax) 17 gm DAILYPRN PRN ORAL Constipation 08/25/18 20:27 09/24/18 20:26 Risperidone (RisperDAL) 1 mg BEDTIME ORAL 08/25/18 21:00 09/22/18 20:59 08/27/18 21:04 Temazepam (Restoril) 15 mg HSPRN PRN ORAL Insomnia 08/25/18 20:28 09/01/18 20:27 08/25/18 21:04 Allergies: Coded Allergies: PIPERACILLIN (Unverified Allergy, Unknown, 05/21/18) tolerates cephalosporins TAZOBACTAM (Unverified Allergy, Unknown, 03/10/18) ROS Limited/Unobtainable: No Constitutional: Reports: no symptoms HEENT: Reports: no symptoms Cardiovascular: Reports: no symptoms Respiratory: Reports: no symptoms Gastrointestinal/Abdominal: Reports: no symptoms Genitourinary: Reports: no symptoms Neurologic/Psychiatric: Reports: no symptoms Subjective 77 YO F admitted with respiratory failure. Cover for Int olive-Dr Mendoza. Tolerating nasal canula Objective Last Vital Signs Date Time Temp Pulse Resp B/P (MAP) Pulse Ox O2 Delivery O2 Flow Rate FiO2 08/28/18 16:00 2.0 08/28/18 16:00 98.5 81 20 129/61 (83) 91 08/28/18 09:00 Nasal Cannula 08/28/18 08:30 28 Laboratory Tests Test 08/28/18 06:05 White Blood Count 7.9 K/UL (4.8-10.8) Red Blood Count 3.96 M/UL (4.20-5.40) L Hemoglobin 10.5 G/DL (12.0-16.0) L Hematocrit 34.0 % (37.0-47.0) L Mean Corpuscular Volume 86 FL (80-99) Mean Corpuscular Hemoglobin 26.6 PG (27.0-31.0) L Mean Corpuscular Hemoglobin Concent 31.0 G/DL (32.0-36.0) L Red Cell Distribution Width 19.1 % (11.6-14.8) H Platelet Count 162 K/UL (150-450) Mean Platelet Volume 8.5 FL (6.5-10.1) Neutrophils (%) (Auto) 73.1 % (45.0-75.0) Lymphocytes (%) (Auto) 14.2 % (20.0-45.0) L Monocytes (%) (Auto) 9.3 % (1.0-10.0) Eosinophils (%) (Auto) 2.3 % (0.0-3.0) Basophils (%) (Auto) 1.1 % (0.0-2.0) Sodium Level 140 MMOL/L (136-145) Potassium Level 2.9 MMOL/L (3.5-5.1) L Chloride Level 94 MMOL/L (98-107) L Carbon Dioxide Level > 45 MMOL/L (21-32) *H Blood Urea Nitrogen 12 mg/dL (7-18) Creatinine 0.6 MG/DL (0.55-1.30) Estimat Glomerular Filtration Rate mL/min (>60) Glucose Level 87 MG/DL (74-106) Calcium Level 8.7 MG/DL (8.5-10.1) Intake and Output 08/27/18 08/28/18 19:00 07:00 Intake Total 600 ml Output Total 1600 ml 2100 ml Balance -1000 ml -2100 ml Intake Oral 600 ml Output Urine Total 1600 ml 2100 ml Objective PHYSICAL EXAMINATION: GENERAL: The patient is a well-developed and well-nourished white female, in no apparent distress. HEENT: Eyes, pupils are equal and responsive to light and accommodation. Extraocular movements intact. NECK: Supple without lymphadenopathy. CHEST: Nasal canula; Lungs are with decreased breath sounds bilateral bases with crackles. Otherwise, without wheezes or rales. CARDIOVASCULAR: Regular rhythm and rate. S1, S2 are normal without murmurs, rubs, or gallops. ABDOMEN: Soft, nontender, and nondistended. Positive bowel sounds. No evidence of hepatosplenomegaly. Currently, no rebound or guarding noted. EXTREMITIES: Negative for clubbing, cyanosis, or edema. RECTAL/GENITAL: Refused. NEUROLOGIC: Cranial nerves II through XII are grossly intact without focal deficits. Motor strength is 5/5 bilaterally. Deep tendon reflexes are 2+ plantar. Assessment/Plan Assessment/Plan ASSESSMENT: This is a 77-year-old white female. 1. Respiratory failure/respiratory acidosis 2. Pneumonia. 3. History of chronic obstructive pulmonary disease. 4. Atrial flutter. 5. Congestive heart failure. 6. History of coronary artery disease. 7. Hypertension. 8. Seizure disorder. 9. Paranoid schizophrenia. 10. Depression. TREATMENT: 1. Respiratory failure/pneumonia. A Pulmonary consultation has been obtained with Dr. Mendel Sierra. The patient is currently tolerating nasal canula. The patient has been started empirically on DuoNebs every 4 hours. This may be secondary to COPD exacerbation versus congestive heart failure. We will follow recommendations of Pulmonary. 2. History of atrial flutter/history of intraventricular pacemaker. Cardiology consultation is pending. 3. Congestive heart failure. The patient is currently receiving Lasix. 4. History of coronary artery disease. 5. Hypertension. The patient is currently hypotensive. 6. History of seizure disorder. 7. Paranoid schizophrenia. 8. Depression. 9. [facility] Juan Dutta MD Aug 28, 2018 19:48
[2018-08-28 20:00] VITALS: BP 131/51
--- NOTE | 2018-08-28 20:30 | NUR ---
NURSE NOTES: Called [facility] and they stated bipap had not arrived yet and that the pt would have to be sent tomorrow per their Administration. Dr. Mendoza made aware.
--- NOTE | 2018-08-28 21:00 | NUR ---
NURSE NOTES: spoke with ashley from [facility], bipap has still not arrived so per her distance learning administrator, unable to accept patient until tomorrow.
[2018-08-29] VITALS: BP 116/53
[2018-08-29 04:00] VITALS: BP 119/70
[2018-08-29 07:03] LABS: ANION GAP 2 mmol/L (5-15); BLOOD UREA NITROGEN 12 mg/dL (7-18); CALCIUM 8.8 MG/DL (8.5-10.1); CHLORIDE 95 MMOL/L (98-107); CREATININE 0.7 MG/DL (0.55-1.30); POTASSIUM 2.9 MMOL/L (3.5-5.1); SODIUM 139 MMOL/L (136-145)
[2018-08-29 07:09] LABS: BASOPHILS % (AUTO) 1.7 % (0.0-2.0); EOSINOPHILS % (AUTO) 2.6 % (0.0-3.0); HEMATOCRIT 33.7 % (37.0-47.0); HEMOGLOBIN 10.5 G/DL (12.0-16.0); LYMPHOCYTES % (AUTO) 10.6 % (20.0-45.0); MEAN CORPUSCULAR VOLUME 85 FL (80-99); MONOCYTES % (AUTO) 9.3 % (1.0-10.0); NEUTROPHILS % (AUTO) 75.8 % (45.0-75.0); PLATELET COUNT 180 K/UL (150-450); RED BLOOD COUNT 3.97 M/UL (4.20-5.40); WHITE BLOOD COUNT 8.3 K/UL (4.8-10.8)
[2018-08-29 07:17] LABS: CARBON DIOXIDE 43 MMOL/L (21-32)
--- NOTE | 2018-08-29 07:22 | NUR ---
HAND-OFF: Report given to CHARLETTE Marcelo.
--- NOTE | 2018-08-29 07:32 | NUR ---
NURSE NOTES: RN received pt in stable condition, resting in bed. Bed in low, locked position, call light within reach. Will continue to monitor.
--- NOTE | 2018-08-29 07:35 | NUR ---
NURSE NOTES: Received patient from Maricruz RN, patient is resting comfortably in bed, no distress noted, bed is locked and in lowest position, alarm set, call light within reach, will continue to monitor.
[2018-08-29 08:00] VITALS: BP 120/48
[2018-08-29] MEDS: Eliquis 2.5mg tablet ORAL SCH (08:16)
[2018-08-29] MEDS: acetaZOLAMIDE 500mg Inj IVP SCH (09:39)
--- NOTE | 2018-08-29 11:11 | NUR ---
CASE MANAGEMENT: DCPNOTE UPON DISCHARGE PATIENT WILL TRANSFER BACK TO [facility] [phone] USP ROOM ASSIGNMENT 49A PATIENT IN AGREEMENT TO TRANSFER BACK THE FACILITY TRANSPORTATION VIA [facility] [id number] / ETA 13:30
[2018-08-29 12:00] VITALS: BP 102/52
--- NOTE | 2018-08-29 13:59 | Pulmonology Progress Note ---
Assessment/Plan Problems: (1) Respiratory failure, acute (2) Pulmonary edema (3) Acute diastolic CHF (congestive heart failure) (4) COPD (chronic obstructive pulmonary disease) (5) Gout Assessment/Plan doing better wants to get discharged the pulmonary edema is completely resolved doing better all reviewed cardiology appreciated respiratory treatment diuretics titrate fio2 to sat of 92% monitor electrolytes dvt prophylaxis DNR is appropriate. dc planning Subjective ROS Limited/Unobtainable: No Constitutional: Reports: no symptoms HEENT: Repors: no symptoms Respiratory: Reports: no symptoms Allergies: Coded Allergies: PIPERACILLIN (Unverified Allergy, Unknown, 05/21/18) tolerates cephalosporins TAZOBACTAM (Unverified Allergy, Unknown, 03/10/18) Objective Last 24 Hour Vital Signs Date Time Temp Pulse Resp B/P (MAP) Pulse Ox O2 Delivery O2 Flow Rate FiO2 08/29/18 12:00 98.9 62 18 102/52 (69) 100 08/29/18 09:00 Nasal Cannula 2.0 08/29/18 08:00 98.2 60 18 120/48 (72) 98 08/29/18 04:00 97.2 60 20 119/70 (86) 98 08/29/18 04:00 2.0 08/29/18 00:00 97.3 64 20 116/53 (74) 100 08/29/18 00:00 2.0 08/28/18 21:00 Nasal Cannula 2.0 08/28/18 20:00 99.7 65 16 131/51 (77) 99 08/28/18 20:00 2.0 08/28/18 16:00 2.0 08/28/18 16:00 98.5 81 20 129/61 (83) 91 Intake and Output 08/28/18 08/29/18 18:59 06:59 Intake Total 600 ml Output Total 2200 ml 1600 ml Balance -1600 ml -1600 ml Intake Oral 600 ml Output Urine Total 2200 ml 1600 ml Objective General Appearance: WD/WN HEENT: normocephalic, atraumatic Respiratory/Chest: chest wall non-tender, lungs clear Cardiovascular: normal peripheral pulses, normal rate Abdomen: normal bowel sounds, no organomegaly Genitourinary: normal external genitalia Extremities: no cyanosis 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 Lymphatic: no neck adenopathy Laboratory Tests 08/29/18 06:33: White Blood Count 8.3, Red Blood Count 3.97L, Hemoglobin 10.5L, Hematocrit 33.7L , Mean Corpuscular Volume 85, Mean Corpuscular Hemoglobin 26.5L, Mean Corpuscular Hemoglobin Concent 31.2L, Red Cell Distribution Width 19.0H, Platelet Count 180, Mean Platelet Volume 8.0, Neutrophils (%) (Auto) 75.8H, Lymphocytes (%) (Auto) 10.6L, Monocytes (%) (Auto) 9.3, Eosinophils (%) (Auto) 2.6, Basophils (%) (Auto) 1.7, Sodium Level 139, Potassium Level 2.9L, Chloride Level 95L, Carbon Dioxide Level 43*H, Anion Gap 2L, Blood Urea Nitrogen 12, Creatinine 0.7, Estimat Glomerular Filtration Rate , Glucose Level 141H, Calcium Level 8.8 Current Medications Medications (Trade) Dose Ordered Sig/Ibrahima Route PRN Reason Start Time Stop Time Status Last Admin Dose Admin Acetaminophen (Tylenol) 650 mg Q4H PRN ORAL Fever (temp>100.5F) 08/25/18 20:27 09/24/18 20:26 Acetaminophen/ Hydrocodone Bitart ([place] 5/325) 1 tab Q6H PRN ORAL For Pain 08/26/18 09:30 09/02/18 09:29 08/26/18 17:48 Acetazolamide (Diamox 500mg Inj) 250 mg EVERY 12 HOURS IVP 08/25/18 21:00 09/23/18 20:59 08/29/18 09:39 Albuterol/ Ipratropium (Albuterol/ Ipratropium) 3 ml Q4H PRN HHN Shortness of Breath 08/25/18 20:27 08/30/18 20:26 Apixaban (Eliquis) 5 mg BID ORAL 08/26/18 09:00 09/22/18 17:59 08/29/18 08:16 Dextrose (Dextrose 50%) 25 ml Q30M PRN IV Hypoglycemia 08/25/18 20:30 09/22/18 08:29 Dextrose (Dextrose 50%) 50 ml Q30M PRN IV Hypoglycemia 08/25/18 20:30 09/22/18 08:29 Furosemide (Lasix) 40 mg EVERY 8 HOURS IV 08/25/18 22:00 09/22/18 21:59 08/29/18 05:42 Ondansetron HCl (Zofran) 4 mg Q6H PRN IVP Nausea & Vomiting 08/25/18 20:30 09/22/18 08:29 Polyethylene Glycol (Miralax) 17 gm DAILYPRN PRN ORAL Constipation 08/25/18 20:27 09/24/18 20:26 Risperidone (RisperDAL) 1 mg BEDTIME ORAL 08/25/18 21:00 09/22/18 20:59 08/28/18 21:10 Temazepam (Restoril) 15 mg HSPRN PRN ORAL Insomnia 08/25/18 20:28 09/01/18 20:27 08/25/18 21:04 Mendel Sierra MD Aug 29, 2018 13:59
--- NOTE | 2018-08-29 14:49 | NUR ---
NURSE NOTES: [facility] being [facility] in stable condition, vitals WNL; no SOB, no acute distress, abfebrile. RN informed Deejay, pt admitted for respiratory distress, hx of CHF, COPD, CO, siezures,, schizophrenia. Allergies to Piperacillan, Tazobactum. Pt is DNI, DNR, POLST in EMT transport packet. Pt on 2 L nc, has potts catheter for urinary retntion, skin intact. Mechanical soft diet, no added salt. Last BM on 08/26/18. IV and arm band removed. Pt had no belongings to account for during hospital stay.
--- NOTE | 2018-08-29 16:22 | Internal Med Progress Note ---
Subjective Date of Service: Aug 29, 2018 Physician Name Juan Dutta Attending Physician Yonathan Mendoza MD Allergies: Coded Allergies: PIPERACILLIN (Unverified Allergy, Unknown, 05/21/18) tolerates cephalosporins TAZOBACTAM (Unverified Allergy, Unknown, 03/10/18) ROS Limited/Unobtainable: No Constitutional: Reports: no symptoms HEENT: Reports: no symptoms Cardiovascular: Reports: no symptoms Respiratory: Reports: no symptoms Gastrointestinal/Abdominal: Reports: no symptoms Genitourinary: Reports: no symptoms Neurologic/Psychiatric: Reports: no symptoms Subjective 77 YO F admitted with respiratory failure. Cover for Int med-Dr Mendoza. Tolerating nasal canula Objective Last Vital Signs Date Time Temp Pulse Resp B/P (MAP) Pulse Ox O2 Delivery O2 Flow Rate FiO2 08/29/18 12:00 98.9 62 18 102/52 (69) 100 08/29/18 09:00 Nasal Cannula 2.0 08/28/18 08:30 28 Laboratory Tests Test 08/29/18 06:33 White Blood Count 8.3 K/UL (4.8-10.8) Red Blood Count 3.97 M/UL (4.20-5.40) L Hemoglobin 10.5 G/DL (12.0-16.0) L Hematocrit 33.7 % (37.0-47.0) L Mean Corpuscular Volume 85 FL (80-99) Mean Corpuscular Hemoglobin 26.5 PG (27.0-31.0) L Mean Corpuscular Hemoglobin Concent 31.2 G/DL (32.0-36.0) L Red Cell Distribution Width 19.0 % (11.6-14.8) H Platelet Count 180 K/UL (150-450) Mean Platelet Volume 8.0 FL (6.5-10.1) Neutrophils (%) (Auto) 75.8 % (45.0-75.0) H Lymphocytes (%) (Auto) 10.6 % (20.0-45.0) L Monocytes (%) (Auto) 9.3 % (1.0-10.0) Eosinophils (%) (Auto) 2.6 % (0.0-3.0) Basophils (%) (Auto) 1.7 % (0.0-2.0) Sodium Level 139 MMOL/L (136-145) Potassium Level 2.9 MMOL/L (3.5-5.1) L Chloride Level 95 MMOL/L (98-107) L Carbon Dioxide Level 43 MMOL/L (21-32) *H Anion Gap 2 mmol/L (5-15) L Blood Urea Nitrogen 12 mg/dL (7-18) Creatinine 0.7 MG/DL (0.55-1.30) Estimat Glomerular Filtration Rate mL/min (>60) Glucose Level 141 MG/DL (74-106) H Calcium Level 8.8 MG/DL (8.5-10.1) Intake and Output 08/28/18 08/29/18 18:59 06:59 Intake Total 600 ml Output Total 2200 ml 1600 ml Balance -1600 ml -1600 ml Intake Oral 600 ml Output Urine Total 2200 ml 1600 ml Objective PHYSICAL EXAMINATION: GENERAL: The patient is a well-developed and well-nourished white female, in no apparent distress. HEENT: Eyes, pupils are equal and responsive to light and accommodation. Extraocular movements intact. NECK: Supple without lymphadenopathy. CHEST: Nasal canula; Lungs are with decreased breath sounds bilateral bases with crackles. Otherwise, without wheezes or rales. CARDIOVASCULAR: Regular rhythm and rate. S1, S2 are normal without murmurs, rubs, or gallops. ABDOMEN: Soft, nontender, and nondistended. Positive bowel sounds. No evidence of hepatosplenomegaly. Currently, no rebound or guarding noted. EXTREMITIES: Negative for clubbing, cyanosis, or edema. RECTAL/GENITAL: Refused. NEUROLOGIC: Cranial nerves II through XII are grossly intact without focal deficits. Motor strength is 5/5 bilaterally. Deep tendon reflexes are 2+ plantar. Assessment/Plan Assessment/Plan ASSESSMENT: This is a 77-year-old white female. 1. Respiratory failure/respiratory acidosis 2. Pneumonia. 3. History of chronic obstructive pulmonary disease. 4. Atrial flutter. 5. Congestive heart failure. 6. History of coronary artery disease. 7. Hypertension. 8. Seizure disorder. 9. Paranoid schizophrenia. 10. Depression. TREATMENT: 1. Respiratory failure/pneumonia. A Pulmonary consultation has been obtained with Dr. Mendel Sierra. The patient is currently tolerating nasal canula. The patient has been started empirically on DuoNebs every 4 hours. This may be secondary to COPD exacerbation versus congestive heart failure. We will follow recommendations of Pulmonary. 2. History of atrial flutter/history of intraventricular pacemaker. Cardiology consultation is pending. 3. Congestive heart failure. The patient is currently receiving Lasix. 4. History of coronary artery disease. 5. Hypertension. The patient is currently hypotensive. 6. History of seizure disorder. 7. Paranoid schizophrenia. 8. Depression. 9. Discharge today t [facility] Juan Dutta MD Aug 29, 2018 16:22
--- NOTE | 2018-09-01 09:17 | Discharge Summary ---
Discharge Summary Discharge Summary _ DATE OF ADMISSION: 08/23/2018 DATE OF DISCHARGE: 08/29/2018 DISCHARGED BY: Dr. Mendoza REASON FOR ADMISSION: 27 years old female with past medical history of hypertension, COPD, atrial flutter, seizure disorder, depression, schizophrenia, history of alcohol abuse, wheelchair-bound, presented from custodial facility of shortness of breath and altered mental status upon evaluation in emergency department patient hypoxic and was found to have acute pulmonary edema. Patient was started on the BiPAP. Patient BiPAP revealed severe respiratory acidosis with hypercapnia pH 7.29 PCO2 136 and O2 sat 98%. Patient improved in the emergency department and supplemental oxygen was changed to facemask. Laboratory workup revealed negative troponin. ProBNP 5490. CO2 more than 45 no leukocytosis. Chest x-ray demonstrated bilateral lung opacities right greater than left suggesting probably combination of pleural effusion and atelectasis possible pneumonia. Patient was admitted to do you for further workup. Mental status with him also improved with improvement in oxygenation. 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 [place] pulmonary Dr. Sierra [facility] COURSE: Patient was admitted to [facility]. Supplemental oxygen titrated to keep pulse oximetry above 90%. BiPAP provided as needed. Pulmonary toilet provided as needed. Venous duplex bilateral lower extremity revealed no evidence of acute DVT. Patient started on Diamox in hope to reset CO2. Echocardiogram revealed preserved ejection fraction of 55% with mild left ventricular hypertrophy. No evidence of wall motion abnormality. Right ventricular systolic pressure of 51, consistent with moderate pulmonary hypertension. Moderately elevated left atrial pressure grade 2. Mild to moderate mitral regurgitation. Mild tricuspid regurgitation. Electric Crane Operator closely followed. Patient started on IV diuretic with close monitoring of volumes and cardiorenal parameters. DVT prophylaxis provided. Patient had permanent atrial fibrillation/flutter. Serial troponin were negative. Patient was on anticoagulation with apixaban. Heart rate was controlled. Blood pressure was closely monitored and remained stable. No need for antihypertensive medication at this time. Renal parameters and electrolytes were closely monitored. Electrolytes corrected as needed. Potassium and magnesium were replaced. Nephrotoxins were avoided. Supportive care provided. Psychiatric medication regimen was continued from custodial facility. Pain management was addressed. Bowel regimen instituted. Supportive care provided. Altered mental status on admission was likely due to acute hypoxemic hypercapnic respiratory failure and resolved to baseline as respiratory status improved. Seizure precaution maintained. No evidence of seizure activity while in the hospital. Last chest x-ray showed improvement in interstitial congestion . Pro BNP down from initial 5490 to 2448. Lasix changed to oral route prior to discharge. Patient clinically improved. Patient clinically improved and was ready for discharge to custodial facility for continuation of care FINAL DIAGNOSES: Acute hypoxemic hypercapnic respiratory failure Acute pulmonary edema Acute diastolic CHF COPD Permanent atrial fibrillation/flutter History of permanent pacemaker implantation, leadless device History of hypertension, currently hypotensive Bilateral pleural effusion Pulmonary hypertension Mild to moderate mitral and aortic valvular disease Seizure disorder History of coronary artery disease Paranoid schizophrenia Depression Dementia Altered mental status DISCHARGE MEDICATIONS: See Medication Reconciliation list. DISCHARGE INSTRUCTIONS: Patient was discharged to the custodial facility. Follow up with medical doctor at the facility. I have been assigned to dictate discharge summary for this account. I was not involved in the patient's management. Jazzy Campuzano NP Sep 01, 2018 09:17
== END 2018-08-29 14:30 | DRG 193 ==
LOC: EDBD 05:38 → EMR 05:50 → 2W 06:16 → EDBEDREQ 12:04 → 4E 08-25 20:00
PROC: 5A09457 Assistance with Respiratory Ventilation, 24-96 Consecutive Hours, Continuous Positive Airway Pressure (ICD-10-PCS; principal; 2018-08-23)
DX: J18.9 Pneumonia, unspecified organism (principal); J96.02 Acute respiratory failure with hypercapnia; J96.01 Acute respiratory failure with hypoxia; I50.31 Acute diastolic (congestive) heart failure; F20.0 Paranoid schizophrenia; I48.92 Unspecified atrial flutter; I25.10 Atherosclerotic heart disease of native coronary artery without angina pectoris; J44.9 Chronic obstructive pulmonary disease, unspecified; F32.9 Major depressive disorder, single episode, unspecified; Z99.3 Dependence on wheelchair; I27.20 Pulmonary hypertension, unspecified; I11.0 Hypertensive heart disease with heart failure; I48.2 Chronic atrial fibrillation; Z95.0 Presence of cardiac pacemaker; I95.9 Hypotension, unspecified; I35.1 Nonrheumatic aortic (valve) insufficiency; I34.0 Nonrheumatic mitral (valve) insufficiency; F03.90 Unspecified dementia, unspecified severity, without behavioral disturbance, psychotic disturbance, mood disturbance, and anxiety; Z88.1 Allergy status to other antibiotic agents; Z87.891 Personal history of nicotine dependence; I36.1 Nonrheumatic tricuspid (valve) insufficiency; G40.909 Epilepsy, unspecified, not intractable, without status epilepticus; M10.9 Gout, unspecified; K21.9 Gastro-esophageal reflux disease without esophagitis
CPT/HCPCS: 36415; 36600; 71045; 80048; 80053; 80069; 81003; 82550; 82553; 82803; 83605; 83735; 83880; 84484; 85025; 85610; 85730; 87040; 93005; 93306; 93970; 94640; 94660; 94664; 94760; 96365; 96368; 99291; J8499

== ENCOUNTER 2018-09-16 22:04 | Inpatient (IN) | payer MEDICARE, OTHER ==
[~2018-09-16] VITALS: Ht 152.4 cm; Wt 79.4 kg
[2018-09-16 22:04] VITALS: BP 129/56
[~2018-09-16 22:04] MED LIST changes: +ALBUTEROL2.5 MG/3 M INH; +COLACE100 MG/10 ORAL; +DULCOLAX10 MG RC; +MOM30 ML ORAL; +SENNA8.8 MG/5 M PO
--- NOTE | 2018-09-16 22:06 | NUR ---
ED Nurse Note: Patient BIBA from SNF with complaints of desaturation, patient on non-rebreather upon arrival. Patient placed on nasal canula 2L upon bed placement.
[2018-09-16] MEDS ORDERED: Ipratropium 0.02% Inh Soln 2.5ml UD ONE (22:14)
[2018-09-16] MEDS ORDERED: Albuterol ud Inhalation ONE (22:15)
[2018-09-16] MEDS ORDERED: Solu-MEDROL 125mg Inj IVP ONE (22:15)
[2018-09-16] MEDS: Ipratropium 0.02% Inh Soln 2.5ml UD HHN SCH ×3 (22:21→23:08)
[2018-09-16] MEDS: Albuterol ud Inhalation HHN SCH ×3 (22:21→23:08)
[2018-09-16 22:47] LABS: APPEARANCE,URINE CLEAR; BILIRUBIN, URINE NEGATIVE (NEGATIVE); COLOR,URINE PALE YELLOW; GLUCOSE, URINE (UA) NEGATIVE (NEGATIVE); KETONES,URINE NEGATIVE (NEGATIVE); LEUKOCYTE ESTERASE ,URINE 3+ (NEGATIVE); NITRITE,URINE POSITIVE (NEGATIVE); PH,URINE 5 (4.5-8.0); PROTEIN,URINE 2+ (NEGATIVE); UROBILINOGEN,URINE NORMAL MG/DL (0.0-1.0)
[2018-09-16 22:52] LABS: BASOPHILS % (AUTO) 1.3 % (0.0-2.0); EOSINOPHILS % (AUTO) 0.2 % (0.0-3.0); HEMATOCRIT 31.8 % (37.0-47.0); HEMOGLOBIN 10.1 G/DL (12.0-16.0); LYMPHOCYTES % (AUTO) 6.9 % (20.0-45.0); MEAN CORPUSCULAR VOLUME 79 FL (80-99); MONOCYTES % (AUTO) 7.9 % (1.0-10.0); NEUTROPHILS % (AUTO) 83.8 % (45.0-75.0); PLATELET COUNT 161 K/UL (150-450); RED BLOOD COUNT 4.03 M/UL (4.20-5.40); RED CELL DISTRIBUTION WIDTH 17.1 % (11.6-14.8); WHITE BLOOD COUNT 9.8 K/UL (4.8-10.8)
[2018-09-16 23:01] LABS: ANION GAP 1 mmol/L (5-15); BLOOD UREA NITROGEN 14 mg/dL (7-18); CALCIUM 8.2 MG/DL (8.5-10.1); CARBON DIOXIDE 38 MMOL/L (21-32); CHLORIDE 85 MMOL/L (98-107); CREATININE 0.5 MG/DL (0.55-1.30); POTASSIUM 4.7 MMOL/L (3.5-5.1); SODIUM 124 MMOL/L (136-145)
--- NOTE | 2018-09-16 23:09 | NUR ---
ED Nurse Note: IV started at right AC 24 G, labs drawn, fluids hung, patient with Rt for breathing treatmentt to improve saturation, awaiting arterial blood gas.
[2018-09-16 23:17] LABS: ALANINE AMINOTRANSFERASE 13 U/L (12-78); ALBUMIN 2.7 G/DL (3.4-5.0); ALBUMIN/GLOBULIN RATIO 0.7 (1.0-2.7); ALKALINE PHOSPHATASE 61 U/L (46-116); ASPARTATE AMINO TRANSFERASE 19 U/L (15-37); BILIRUBIN,TOTAL 0.3 MG/DL (0.2-1.0); CKMB 0.9 NG/ML (0.0-3.6); CREATINE KINASE 31 U/L (26-308)
--- NOTE | 2018-09-16 23:32 | Emergency Room Report ---
History of Present Illness General Chief Complaint: Dyspnea/Respdistress Source: Medical Record Present Illness HPI 77-year-old female presents ED for evaluation. Brought in by EMS for shortness of breath. Coming from shelter facility. Nursing staff noted O2 sats were low today at facility. Started with breathing treatments. History of COPD. Denies fevers or chills. Denies chest pain. No other aggravating relieving factors. Denies any other associated symptoms Allergies: Coded Allergies: PIPERACILLIN (Unverified Allergy, Unknown, 05/21/18) tolerates cephalosporins TAZOBACTAM (Unverified Allergy, Unknown, 03/10/18) Patient History Past Medical History: HTN, COPD, CVA/TIA, seizures Past Surgical History: none Pertinent Family History: none Social History: Denies: smoking, alcohol use, drug use Now: No Immunizations: UTD Reviewed Nursing Documentation: PMH: Agreed; PSxH: Agreed Nursing Documentation-PMH Hx Cardiac Problems: Yes Hx Hypertension: Yes Hx Pacemaker: Yes - left chest Hx Asthma: No Hx COPD: Yes Hx Diabetes: No Hx Cancer: No Hx Gastrointestinal Problems: Yes - dysphagia ,oropharyngeal phase Hx Dialysis: No Hx Neurological Problems: Yes - insomnia Hx Cerebrovascular Accident: Yes Hx Dementia: Yes Hx Seizures: Yes Hx Epilepsy: Yes Hx Tremors: Yes Hx Vertigo: Yes Hx Dizziness: Yes Hx Syncope: Yes Hx Headaches: Yes - occasional Hx Weakness: Yes Hx Fatigue: Yes Review of Systems All Other Systems: limited Physical Exam Vital Signs Date Time Temp Pulse Resp B/P (MAP) Pulse Ox O2 Delivery O2 Flow Rate FiO2 09/16/18 21:59 98.2 98 22 129/56 96 Non-Rebreather 09/16/18 22:21 2.0 28 General Appearance: no apparent distress, lethargic Head: normocephalic Eyes: bilateral eye normal inspection, bilateral eye PERRL ENT: normal ENT inspection Neck: normal inspection Respiratory: decreased breath sounds, crackles, wheezing Cardiovascular #1: regular rate, rhythm, no edema Gastrointestinal: normal inspection Rectal: deferred Genitourinary: no CVA tenderness Musculoskeletal: normal inspection Neurologic: other - lethargic Psychiatric: other - lethargic Skin: normal inspection Lymphatic: normal inspection Procedures Critical Care Time Critical Care Time i. I feel this is a highly complex case requiring extensive working including EKG/Rhythm strip, Xray/CT/US, Blood/urine lab work, repeat exams while in ED, and administration of strong opiates/narcotics for pain control, admission to hospital or close patient follow up. Total time: 50 min bedside evaluation and treatment excludes procedures (EKG). Reason for critical care: hypoxia, hypercapnia Possible complications: hypotension, hypertension, MT, shock, arrhythmias, metabolic acidosis, end organ damage, respiratory failure. Interventions: labs, EKG, CXR, nebs, ABG, BIPAP, repeat ABG, antibiotics, lasix Course: Patient presenting with hypoxia, respiratory distress. History of COPD. Started on breathing treatments with O2 sats improving. Chest x-ray shows interstitial congestion, possible pneumonia. ABG shows significant hypercapnia with acidosis. Started on BiPAP. Repeat ABG shows improvement of hypercapnia. Antibiotics given. Lasix given. Consultations: nursing staff, EMS, family Performed by: Dr Victoria Tolerated well condition = serious j. because of unstable vital signs this patient had a condition that could potentially threaten life or limb. I feel this is a critical patient who required my full attention while patient was considered critical. Total Critical Care Time excluding procedures was greater than 50 minutes Medical Decision Making Diagnostic Impression: Primary Impression: COPD (chronic obstructive pulmonary disease) Qualified Codes: J44.9 - Chronic obstructive pulmonary disease, unspecified Additional Impression: Hypercapnia ER Course Hospital Course 77-year-old F presenting to ED with SOB. h/o COPD Differential diagnoses include: Pneumonia, CHF exacerbation, pneumothorax, fluid overload Clinical course Patient placed on stretcher. On desk monitor with stable vitals. After initial history and physical, I ordered nebulizer treatments. I ordered labs, IV fluids, EKG, chest x-ray, blood cultures, UA. Labs - no leukocytosis noted, hemoglobin/hematocrit stable, Na 124, lactate okay , troponins negative, BNP > 5000 EKG - atrial fibrillation no acute ischemic changes interpreted by me CXR - bilateral interstitial congestion. ABG shows acidosis and hypercapnia. BiPAP started. Antibiotics given. Lasix given. Repeat ABG shows improvement in hypercapnia Case discussed with Dr. Mendoza and he agreed to the patient to his service for further care and support I feel this is a highly complex case requiring extensive working including EKG/ Rhythm strip, Xray/CT/US, Blood/urine lab work, repeat exams while in ED, and administration of strong opiates/narcotics for pain control, admission to hospital or close patient follow up. Diagnosis - COPD exacerbation, hypercapnia Patient admitted to SDU in serious condition Labs Test 09/16/18 22:30 09/16/18 22:34 09/16/18 23:27 White Blood Count 9.8 K/UL (4.8-10.8) Red Blood Count 4.03 M/UL (4.20-5.40) Hemoglobin 10.1 G/DL (12.0-16.0) Hematocrit 31.8 % (37.0-47.0) Mean Corpuscular Volume 79 FL (80-99) Mean Corpuscular Hemoglobin 25.2 PG (27.0-31.0) Mean Corpuscular Hemoglobin Concent 31.9 G/DL (32.0-36.0) Red Cell Distribution Width 17.1 % (11.6-14.8) Platelet Count 161 K/UL (150-450) Mean Platelet Volume 7.5 FL (6.5-10.1) Neutrophils (%) (Auto) 83.8 % (45.0-75.0) Lymphocytes (%) (Auto) 6.9 % (20.0-45.0) Monocytes (%) (Auto) 7.9 % (1.0-10.0) Eosinophils (%) (Auto) 0.2 % (0.0-3.0) Basophils (%) (Auto) 1.3 % (0.0-2.0) Sodium Level 124 MMOL/L (136-145) Potassium Level 4.7 MMOL/L (3.5-5.1) Chloride Level 85 MMOL/L (98-107) Carbon Dioxide Level 38 MMOL/L (21-32) Anion Gap 1 mmol/L (5-15) Blood Urea Nitrogen 14 mg/dL (7-18) Creatinine 0.5 MG/DL (0.55-1.30) Estimat Glomerular Filtration Rate mL/min (>60) Glucose Level 118 MG/DL (74-106) Lactic Acid Level 0.80 mmol/L (0.4-2.0) Calcium Level 8.2 MG/DL (8.5-10.1) Total Bilirubin 0.3 MG/DL (0.2-1.0) Aspartate Amino Transf (AST/SGOT) 19 U/L (15-37) Alanine Aminotransferase (ALT/SGPT) 13 U/L (12-78) Alkaline Phosphatase 61 U/L (46-116) Total Creatine Kinase 31 U/L (26-308) Creatine Kinase MB 0.9 NG/ML (0.0-3.6) Creatine Kinase MB Relative Index 2.9 Troponin I 0.012 ng/mL (0.000-0.056) Pro-B-Type Natriuretic Peptide 5241 pg/mL (0-125) Total Protein 6.7 G/DL (6.4-8.2) Albumin 2.7 G/DL (3.4-5.0) Globulin 4.0 g/dL Albumin/Globulin Ratio 0.7 (1.0-2.7) Urine Color Pale yellow Urine Appearance Clear Urine pH 5 (4.5-8.0) Urine Specific [place] 1.010 (1.005-1.035) Urine Protein 2+ (NEGATIVE) Urine Glucose (UA) Negative (NEGATIVE) Urine Ketones Negative (NEGATIVE) Urine Blood 4+ (NEGATIVE) Urine Nitrite Positive (NEGATIVE) Urine Bilirubin Negative (NEGATIVE) Urine Urobilinogen Normal MG/DL (0.0-1.0) Urine Leukocyte Esterase 3+ (NEGATIVE) Urine RBC 5-10 /HPF (0 - 2) Urine WBC 5-10 /HPF (0 - 2) Urine Squamous Epithelial Cells Few /LPF (NONE/OCC) Urine Bacteria Few /HPF (NONE) Arterial Blood pH 7.243 (7.350-7.450) Arterial Blood Partial Pressure CO2 98.3 mmHg (35.0-45.0) Arterial Blood Partial Pressure O2 102.3 mmHg (75.0-100.0) Arterial Blood HCO3 41.3 mmol/L (22.0-26.0) Arterial Blood Oxygen Saturation 96.3 % (95-100) Arterial Blood Base Excess 11.3 (-2-2) Ian Test Positive EKG Diagnostic Results Rate: normal Rhythm: other - atrial fibrillation ST Segments: no acute changes ASA given to the pt in ED: No Rhythm Strip Diag. Results EP Interpretation: yes Rhythm: no PVC's, no ectopy Chest X-Ray Diagnostic Results Chest X-Ray Diagnostic Results : Chest X-Ray Ordered: Yes # of Views/Limited/Complete: 1 View Indication: Shortness of Breath EP Interpretation: Yes Interpretation: no pneumothorax, other - bilateral interstitial congestion. Impression: Other - pneumonia Electronically Signed by: Electronically signed by Holden Victoria MD Last Vital Signs Date Time Temp Pulse Resp B/P (MAP) Pulse Ox O2 Delivery O2 Flow Rate FiO2 09/16/18 22:48 98 20 98 09/16/18 22:21 Nasal Cannula 2.0 28 09/16/18 21:59 98.2 129/56 Status: improved Disposition: ADMITTED INPATIENT Condition: Serious Referrals: Yonathan Mendoza MD (PCP) Holden Victoria MD Sep 16, 2018 23:32
--- NOTE | 2018-09-16 23:43 | NUR ---
ED Nurse Note: Blood gas results indicate need for placement on BIPAP. Patient placed on BI PAP with settings of 15/5 30%. Patient tolerating well.
--- NOTE | 2018-09-16 23:50 | NUR ---
ED Nurse Note: Patient tolerating medication well, patient upgraded to SDU, awaiting medication completion prior to transport.
[2018-09-17] MEDS: Albuterol ud Inhalation HHN SCH ×3 (00:02→00:33)
[2018-09-17] MEDS: Ipratropium 0.02% Inh Soln 2.5ml UD HHN SCH ×3 (00:02→00:34)
--- NOTE | 2018-09-17 00:58 | NUR ---
ED Nurse Note: Awaiting second blood gas prior to transport.
[2018-09-17 02:30] VITALS: BP 125/51
--- NOTE | 2018-09-17 02:30 | NUR ---
ED Nurse Note: PATIENT CLEARED FOR TRANSPORT TO FLOOR, PATIENT ACCOMPANIED BY RT, TILE SORTER AND THE POLL WATCHER. PATIENT TRANSPORTED WITHOUT INCIDENCE, PATIENT TRANSPORTED WITH SLOT MACHINE FLOOR PERSON IN TOW.
--- NOTE | 2018-09-17 02:35 | NUR ---
NURSE NOTES: Report received from ER nurse. PT transferred to the unit via gurney. No belonging noted. Skin intact and checked with floor nurse. A/O x2-3. Pt appears fatigued and drowsy. Arousable by voice and shaking. A fib with insurance claims adjuster. Pt is on Bipap 15/5 40%, saturating at 95%. V/S WNL BP 125/51, P 75, R 22, saturating at 95% with bipap, T 97.7. IV on R AC 24G, intact and patent. Bed in the lowest position. Side rails padded and up x3. Call light within reach. Will continue to monitor.
[2018-09-17 04:00] VITALS: BP 113/54
[2018-09-17] MEDS ORDERED: Albuterol ud Inhalation HHN PRN (06:45)
[2018-09-17] MEDS ORDERED: Miralax 17gm pkt ORAL PRN ×2 (06:45→07:00)
[2018-09-17] MEDS ORDERED: Albuterol/Ipratropium 3ml neb HHN PRN ×2 (06:45→07:00)
[2018-09-17] MEDS ORDERED: Tylenol #3 tab (300mg/30mg) ORAL PRN (06:45)
--- NOTE | 2018-09-17 06:46 | NUR ---
RESPIRATORY NOTE: Received pt on Bipap with the current setting 15/5-40% FiO2, back up rate 14. Pt is resting comfortably in the bed, no SOB or resp distress noted. No skin breakdown or redness on the face, reapplied foam tape on nose bridge, cheeks and chin to prevent skin breakdown.Alarms are on and audible, Bipap is plugged into the red outlet, ambu bag is at bedside. Will continue to monitor pt.
--- NOTE | 2018-09-17 07:50 | NUR ---
HAND-OFF: Report given to CHARLETTE Ellsworth. Observed pt sleeping on the bed.
[2018-09-17 08:00] VITALS: BP 99/69
--- NOTE | 2018-09-17 08:00 | NUR ---
NURSE NOTES: received patient report from carmen mena. patient is on bed asleep. on bipap. not in acute distress. bed is low and locked for safety. will follow plan of care.
[2018-09-17] MEDS: Eliquis 2.5mg tablet ORAL SCH ×2 (08:15→17:27)
[2018-09-17] MEDS ORDERED: Heparin 5000 units/ml inj SUBQ SCH (09:00)
[2018-09-17] MEDS ORDERED: Docusate 100mg/10ml Liq ORAL SCH (09:00)
[2018-09-17] MEDS ORDERED: Milk of Magnesia 30ml Ud ORAL SCH (09:00)
--- NOTE | 2018-09-17 09:21 | NUR ---
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 RESPIRATORY DISTRESS SI:COPD . HYPERCAPNIA VS: BP 129/56, P 98, T 98.2, RR 22, SpO2 96 on Bi-pap FiO2 35 RBC 4.03, Hgb 10.1, Hct 31.8, Na 124, CR 0.5, pCO2 98.3, URINE: BLOOD 4+, NITRITE POSITIVE IS:NS x1L IV ATROVENT 500mcg HHN PROVENTIL 5mg HHN SOLU-MEDROL 125mg IVP LEVOFLOXACIN 150ml IVPB MAGNESIUM SULFATE 100ml IVPB LASIX 40mg IV SDU STATUS
--- NOTE | 2018-09-17 10:09 | Consultation ---
History of Present Illness General Date patient seen: Sep 17, 2018 Chief Complaint: Dyspnea/Respdistress Present Illness HPI 77-year-old female, history of hypertension, COPD, atrial flutter, seizure disorder, depression/schizophrenia, history of alcohol abuse, wheelchair bound, ETOH abuse in the past, coming from [facility] for dyspnea. Patient was found to have acute pulmonary edema and was started on BIPAP, she is admitted to [facility] for further work up. She is currently lethargic, still on BIPAP, looks comfortable. Allergies: Coded Allergies: PIPERACILLIN (Unverified Allergy, Unknown, 05/21/18) tolerates cephalosporins TAZOBACTAM (Unverified Allergy, Unknown, 03/10/18) Medication History Scheduled Apixaban (Eliquis), 5 MG ORAL BID Apixaban (Eliquis), 5 MG PO EVERY 12 HOURS, (Reported) Docusate Sodium (Docusate Sodium), 100 MG ORAL DAILY, (Reported) Furosemide* (Lasix*), 40 MG ORAL TWICE A DAY Furosemide* (Lasix*), 40 MG ORAL EVERY 8 HOURS Magnesium Hydroxide (Milk of Magnesia), 30 ML ORAL DAILY, (Reported) Pantoprazole* (Protonix*), 40 MG ORAL EVERY 12 HOURS Potassium Chloride (Potassium Chloride), 10 MEQ ORAL DAILY, (Reported) Risperidone* (Risperdal*), 1 MG ORAL BEDTIME Scheduled PRN Acetaminophen With Codeine (T#3) (Tylenol #3 Tab*), 1 TAB ORAL Q4H PRN for For Pain, (Reported) Acetaminophen With Codeine (T#3) (Tylenol #3 Tab*), 1 TAB ORAL Q4H PRN for Severe Pain (Pain Scale 7-10), (Reported) Acetaminophen* (Acetaminophen 325MG Tablet*), 325 MG ORAL Q4H PRN for Fever/ Headache/Mild Pain, (Reported) Acetaminophen* (Acetaminophen 325MG Tablet*), 650 MG ORAL Q4H PRN for Mild Pain (Pain Scale 1-3), (Reported) Acetaminophen* (Acetaminophen 325MG Tablet*), 325 MG ORAL Q4H PRN for Prn Headache/Temp > 101, (Reported) Albuterol Sulfate* (Albuterol Sulfate Hhn*), 3 ML INH Q6H PRN for Shortness of Breath, (Reported) Hydrocodone Bit/Acetaminophen 5-325* ([place] 5-325*), 1 TAB ORAL Q4H PRN Ipratropium/Albuterol Sulfate (DuoNeb 0.5-3(2.5)mg/3ml), 3 ML HHN Q4HR PRN for Shortness of breath, (Reported) Polyethylene Glycol* (Miralax*), 17 GM ORAL DAILYPRN PRN Temazepam* (Restoril*), 15 MG ORAL HSPRN PRN [HYDROcodone/Acetamin 10/325], 1 TAB ORAL Q4H PRN Miscellaneous Medications Bisacodyl (Dulcolax), 10 MG RC, (Reported) Sennosides (Senna), 8.8 MG PO, (Reported) Patient History Healthcare decision maker Resuscitation status Do Not Resuscitate Advanced Directive on File No Past Medical/Surgical History Past Medical/Surgical History: (1) HTN (hypertension) (2) Atrial flutter (3) CAD (coronary artery disease) (4) Seizure disorder (5) COPD (chronic obstructive pulmonary disease) (6) Cerebral vascular disease (7) Gout (8) Major depression (9) Wheelchair bound (10) Pacemaker Review of Systems All Other Systems: negative except mentioned in HPI Physical Exam General Appearance: WD/WN Lines, tubes and drains: peripheral HEENT: normocephalic, atraumatic Neck: non-tender, normal alignment Respiratory/Chest: chest wall non-tender, lungs clear Breasts: no masses Cardiovascular/Chest: normal peripheral pulses, normal rate Abdomen: normal bowel sounds, non tender Genitourinary/Rectal: normal genital exam, heme negative stool Extremities: normal range of motion Skin Exam: normal pigmentation Neurologic: cone marker II-XII grossly normal Lymphatic: anterior cervical Last 24 Hour Vital Signs Date Time Temp Pulse Resp B/P (MAP) Pulse Ox O2 Delivery O2 Flow Rate FiO2 09/17/18 08:49 80 27 99 Facial 40 09/17/18 08:00 Bi-pap 09/17/18 08:00 40 09/17/18 08:00 96.4 72 17 99/69 (79) 99 09/17/18 06:46 77 21 94 Facial 40 09/17/18 04:41 79 22 97 Facial 40 09/17/18 04:00 97.5 67 18 113/54 (73) 96 09/17/18 04:00 75 09/17/18 04:00 40 09/17/18 04:00 Bi-pap 09/17/18 03:35 70 20 96 Facial 40 09/17/18 03:03 Bi-pap 09/17/18 02:50 79 09/17/18 02:30 97.7 75 22 125/51 (75) 95 09/17/18 02:30 97.7 75 22 125/51 95 Bi-pap 2.0 35 09/17/18 00:44 89 20 97 Bi-pap 35 09/17/18 00:38 95 23 95 Facial 35 09/17/18 00:34 89 22 96 Bi-pap 35 09/17/18 00:31 93 23 97 Bi-pap 35 09/17/18 00:17 94 24 97 Bi-pap 35 09/17/18 00:17 88 21 97 Bi-pap 35 09/17/18 00:02 90 18 98 Bi-pap 35 09/16/18 23:57 90 20 100 Facial 35 09/16/18 23:15 93 22 100 Bi-pap 35 09/16/18 23:08 92 17 100 09/16/18 23:03 92 24 100 09/16/18 22:48 98 20 98 09/16/18 22:38 88 18 97 09/16/18 22:21 98 17 Nasal Cannula 2.0 28 09/16/18 22:21 98 17 88 Nasal Cannula 2.0 28 09/16/18 22:04 98 22 Non-Rebreather 09/16/18 22:04 98.2 98 22 129/56 96 Non-Rebreather 09/16/18 21:59 98.2 98 22 129/56 96 Non-Rebreather Intake and Output 09/16/18 09/17/18 19:00 07:00 Intake Total 1500 ml Output Total 700 ml Balance 800 ml Intake Oral 0 ml IV Total 1500 ml Output Urine Total 700 ml # Bowel Movements 1 Laboratory Tests Test 09/16/18 22:30 09/16/18 22:34 09/16/18 23:27 09/17/18 08:35 White Blood Count 9.8 K/UL (4.8-10.8) Red Blood Count 4.03 M/UL (4.20-5.40) L Hemoglobin 10.1 G/DL (12.0-16.0) L Hematocrit 31.8 % (37.0-47.0) L Mean Corpuscular Volume 79 FL (80-99) L Mean Corpuscular Hemoglobin 25.2 PG (27.0-31.0) L Mean Corpuscular Hemoglobin Concent 31.9 G/DL (32.0-36.0) L Red Cell Distribution Width 17.1 % (11.6-14.8) H Platelet Count 161 K/UL (150-450) Mean Platelet Volume 7.5 FL (6.5-10.1) Neutrophils (%) (Auto) 83.8 % (45.0-75.0) H Lymphocytes (%) (Auto) 6.9 % (20.0-45.0) L Monocytes (%) (Auto) 7.9 % (1.0-10.0) Eosinophils (%) (Auto) 0.2 % (0.0-3.0) Basophils (%) (Auto) 1.3 % (0.0-2.0) Sodium Level 124 MMOL/L (136-145) L Potassium Level 4.7 MMOL/L (3.5-5.1) Chloride Level 85 MMOL/L (98-107) L Carbon Dioxide Level 38 MMOL/L (21-32) H Anion Gap 1 mmol/L (5-15) L Blood Urea Nitrogen 14 mg/dL (7-18) Creatinine 0.5 MG/DL (0.55-1.30) L Estimat Glomerular Filtration Rate mL/min (>60) Glucose Level 118 MG/DL (74-106) H Lactic Acid Level 0.80 mmol/L (0.4-2.0) Calcium Level 8.2 MG/DL (8.5-10.1) L Total Bilirubin 0.3 MG/DL (0.2-1.0) Aspartate Amino Transf (AST/SGOT) 19 U/L (15-37) Alanine Aminotransferase (ALT/SGPT) 13 U/L (12-78) Alkaline Phosphatase 61 U/L (46-116) Total Creatine Kinase 31 U/L (26-308) Creatine Kinase MB 0.9 NG/ML (0.0-3.6) Creatine Kinase MB Relative Index 2.9 Troponin I 0.012 ng/mL (0.000-0.056) 0.008 ng/mL (0.000-0.056) Pro-B-Type Natriuretic Peptide 5241 pg/mL (0-125) H Total Protein 6.7 G/DL (6.4-8.2) Albumin 2.7 G/DL (3.4-5.0) L Globulin 4.0 g/dL Albumin/Globulin Ratio 0.7 (1.0-2.7) L Urine Color Pale yellow Urine Appearance Clear Urine pH 5 (4.5-8.0) Urine Specific [place] 1.010 (1.005-1.035) Urine Protein 2+ (NEGATIVE) H Urine Glucose (UA) Negative (NEGATIVE) Urine Ketones Negative (NEGATIVE) Urine Blood 4+ (NEGATIVE) H Urine Nitrite Positive (NEGATIVE) H Urine Bilirubin Negative (NEGATIVE) Urine Urobilinogen Normal MG/DL (0.0-1.0) Urine Leukocyte Esterase 3+ (NEGATIVE) H Urine RBC 5-10 /HPF (0 - 2) H Urine WBC 5-10 /HPF (0 - 2) H Urine Squamous Epithelial Cells Few /LPF (NONE/OCC) Urine Bacteria Few /HPF (NONE) Arterial Blood pH 7.243 (7.350-7.450) Arterial Blood Partial Pressure CO2 98.3 mmHg (35.0-45.0) *H Arterial Blood Partial Pressure O2 102.3 mmHg (75.0-100.0) H Arterial Blood HCO3 41.3 mmol/L (22.0-26.0) *H Arterial Blood Oxygen Saturation 96.3 % (95-100) Arterial Blood Base Excess 11.3 (-2-2) *H Ian Test Positive Height (Feet): 5 Weight (Pounds): 171 Medications Current Medications Medications (Trade) Dose Ordered Sig/Ibrahima Route PRN Reason Start Time Stop Time Status Last Admin Dose Admin Acetaminophen (Tylenol) 650 mg Q4H PRN ORAL Mild Pain (Pain Scale 1-3) 09/17/18 06:45 10/17/18 06:44 Acetaminophen/ Codeine Phosphate (Tylenol #3) 1 tab Q4H PRN ORAL Severe Pain (Pain Scale 7-10) 09/17/18 06:45 09/24/18 06:44 Acetaminophen/ Hydrocodone Bitart ([place] 5/325) 1 tab Q4H PRN ORAL moderate pain 09/17/18 06:45 09/24/18 06:44 Albuterol/ Ipratropium (Albuterol/ Ipratropium) 3 ml Q4H PRN HHN Shortness of breath 09/17/18 06:45 09/22/18 06:44 Apixaban (Eliquis) 5 mg BID ORAL 09/17/18 09:00 10/17/18 08:59 09/17/18 08:15 Dextrose (Dextrose 50%) 25 ml Q30M PRN IV Hypoglycemia 09/17/18 07:00 10/17/18 06:59 Dextrose (Dextrose 50%) 50 ml Q30M PRN IV Hypoglycemia 09/17/18 07:00 10/17/18 06:59 Docusate Sodium (Colace) 100 mg DAILY ORAL 09/17/18 09:00 10/17/18 08:59 09/17/18 08:14 Furosemide (Lasix) 40 mg EVERY 8 HOURS ORAL 09/17/18 14:00 10/17/18 13:59 Heparin Sodium (Porcine) (Heparin 5000 units/ml) 5,000 units EVERY 12 HOURS SUBQ 09/17/18 09:00 10/17/18 08:59 09/17/18 08:21 Magnesium Hydroxide (Mom) 30 ml DAILY ORAL 09/17/18 09:00 10/17/18 08:59 09/17/18 08:14 Ondansetron HCl (Zofran) 4 mg Q6H PRN IVP Nausea & Vomiting 09/17/18 07:00 10/17/18 06:59 Pantoprazole (Protonix) 40 mg EVERY 12 HOURS ORAL 09/17/18 09:00 10/17/18 08:59 09/17/18 08:20 Polyethylene Glycol (Miralax) 17 gm DAILYPRN PRN ORAL Constipation 09/17/18 06:45 10/17/18 06:44 Potassium Chloride (K-Dur) 10 meq DAILY ORAL 09/17/18 09:00 10/17/18 08:59 Risperidone (RisperDAL) 1 mg BEDTIME ORAL 09/17/18 21:00 10/17/18 20:59 Temazepam (Restoril) 15 mg HSPRN PRN ORAL Insomnia 09/17/18 06:45 09/24/18 06:44 Assessment/Plan Problem List: (1) Respiratory failure, acute ICD Codes: J96.00 - Acute respiratory failure, unspecified whether with hypoxia or hypercapnia SNOMED: 86946555 (2) Acute encephalopathy ICD Codes: G93.40 - Encephalopathy, unspecified SNOMED: 4199857 (3) COPD (chronic obstructive pulmonary disease) ICD Codes: J44.9 - Chronic obstructive pulmonary disease, unspecified SNOMED: 10421551 Qualifiers: Qualified Codes: J44.9 - Chronic obstructive pulmonary disease, unspecified (4) Atrial fibrillation with RVR ICD Codes: I48.91 - Atrial fibrillation with RVR SNOMED: 313436722889236 (5) HTN (hypertension) ICD Codes: I10 - Hypertension SNOMED: 30781225 (6) Seizure disorder ICD Codes: G40.909 - Seizure disorder SNOMED: 045152242 (7) Pacemaker ICD Codes: Z95.0 - Presence of cardiac pacemaker SNOMED: 466956574 (8) Cerebral vascular disease ICD Codes: I67.9 - Cerebrovascular disease, unspecified SNOMED: 10933406 (9) Gout ICD Codes: M10.9 - Gout, unspecified SNOMED: 65731258 Diagnosis [place] I: titrate bipap iv lasix check electrolytes daily watch intake and output monitor heart rate wean bipap when pulmonary edema resolved cardio evaluation. Mendel Sierra MD Sep 17, 2018 10:09
--- NOTE | 2018-09-17 11:57 | NUR ---
RESPIRATORY NOTE: Take pt off Bipap for lunch. Will put pt back on Bipap 30 mins after lunch to prevent aspiration. RN Jodee at bedside. Pt is on 4L 36% NC, no SOB or resp distress. Will continue to monitor pt.
[2018-09-17 12:00] VITALS: BP 117/55
--- NOTE | 2018-09-17 13:50 | NUR ---
RESPIRATORY NOTE: Put pt back on Bipap with the same settings, reapplied foam tapes on cheek, chin and nose bridge to prevent skin breakdown or redness. Pt is stable, resting comfortably in the bed, no SOB or distress noted.CHARLETTE Ellsworth made aware. Will continue to monitor pt.
[2018-09-17] MEDS ORDERED: Furosemide 40mg tab ORAL SCH (14:00)
--- NOTE | 2018-09-17 15:24 | NUR ---
NURSE NOTES: left a message to dr engel regarding na level of 124 today. awaits callback and new order.
--- NOTE | 2018-09-17 15:47 | NUR ---
NURSE NOTES: dr engel is aware of Na level 124. No new orders received.
[2018-09-17 16:00] VITALS: BP 113/65
--- NOTE | 2018-09-17 16:11 | Consultation ---
Consult Note Consult Note asked to eval for hypoNatremia HPI 77-year-old female, history of hypertension, COPD, atrial flutter, seizure disorder, depression/schizophrenia, history of alcohol abuse, wheelchair bound, ETOH abuse in the past, coming from [facility] for dyspnea. Patient was found to have acute pulmonary edema and was started on BIPAP, she is admitted to [facility] for further work up. She is currently lethargic, still on BIPAP, looks comfortable. Allergies: Coded Allergies: PIPERACILLIN (Unverified Allergy, Unknown, 05/21/18) tolerates cephalosporins TAZOBACTAM (Unverified Allergy, Unknown, 03/10/18) examined data reviewed discussed with RN . Assessment/Plan HypoNatremia ? Etiology: depletional / Diuretics / SIADH ... Need more data to pin point etiology Acute respiratory failure on BIPAP- COPD Encephalopathy due to high CO2 Pacemaker UTI Low MCV Anemia Hypoalbuminemia EjFx 55% last admission h/o Atfib Plan; BIPAP Diamox López 3% saline Low dose lasix monitor lytes Anemia clinton per orders Danilo Huber MD Sep 17, 2018 16:11
--- NOTE | 2018-09-17 16:21 | Diagnostic Imaging Report ---
Indication: Dyspnea Comparison: 08/25/2018 A single view chest radiograph was obtained. Findings: Is enlarged but stable compared to the prior exam. Dense mitral annular calcifications again seen. There are also atherosclerotic calcifications in the aorta. There is interstitial opacification/edema and patchy prominent perihilar airspace opacities. Findings may be related to CHF/pulmonary edema. Superimposed pneumonia should be excluded clinically. There is a unchanged blunting left costophrenic sulcus. No evidence of pneumothorax. Limited evaluation of the osseous structures due to underpenetration however no acute osseous abnormality is appreciated. IMPRESSION: Interstitial and perihilar patchy airspace opacities thought to be related to CHF/pulmonary edema. Superimposed pneumonia should be excluded clinically. Cardiomegaly with atherosclerotic vascular calcifications and dense mitral annular calcifications.
[2018-09-17] MEDS ORDERED: NaCl 3% 500ml 500 ML IV ONE (17:00)
--- NOTE | 2018-09-17 17:20 | History & Physical ---
History and Physical History & Physicial Dictated for Int Med-Dr Mendoza no. [id number] Juan Dutta MD Sep 17, 2018 17:20
[2018-09-17] MEDS: Docusate 100mg/10ml Liq ORAL SCH (17:27)
--- NOTE | 2018-09-17 19:29 | NUR ---
HAND-OFF: Report given to cristobal mena.
--- NOTE | 2018-09-17 19:30 | NUR ---
NURSE NOTES: Received report from Vlad OVALLES. Patient in bed awake,alert able to verbalize needs known to staff. On BIPAP 14/10 Fi02 40% satting 95%. HOB elevated. IV line on Right AC intact running 3% NACL at 30cc/hr. Instructed patient to use call light for assistance, reality orientation provided patient forgetful at times due to dementia. Bed alarm on. Bed locked and in low position. Contact isolation maintained and observed. Will continue plan of care.
[2018-09-17 20:00] VITALS: BP 117/55
[2018-09-17] MEDS: Pantoprazole Inj IVP SCH (20:13)
[2018-09-17] MEDS: HYDROcodone/Acetamin 5/325 tab ORAL PRN (20:15)
[2018-09-17] MEDS: acetaZOLAMIDE 500mg Inj IVP SCH (20:56)
--- NOTE | 2018-09-17 21:15 | History and Physical Report ---
DATE OF ADMISSION: 09/16/2018 CHIEF COMPLAINT: The patient is a 77-year-old white female, who presents with chief complaint of shortness of breath. HISTORY OF PRESENT ILLNESS: The patient is a resident of [facility]. The patient began to have shortness of breath yesterday, 09/16/2018. The patient was given several albuterol nebulizer treatments. Shortness of breath did not improve. Oxygen saturation was noted to be in the 80s. The patient presented to [facility]. The patient is admitted for shortness of breath to rule out pneumonia. REVIEW OF SYSTEMS: CONSTITUTIONAL: The patient denies weight loss or weight gain. The patient denies fevers or chills. HEENT: The patient denies ear or throat pain. The patient denies headache. CARDIOVASCULAR: The patient denies palpitations or chest pain. CHEST: The patient denies wheezes. The patient complains of shortness of breath as above. ABDOMEN: The patient denies nausea, vomiting, diarrhea, or constipation. GENITOURINARY: The patient denies dysuria or increased frequency of urination. NEUROMUSCULAR: The patient denies seizures or generalized weakness. PAST MEDICAL HISTORY: Significant for: 1. Atrial flutter. 2. Congestive heart failure. 3. Chronic obstructive pulmonary disease. 4. History of intraventricular pacemaker implantation. 5. Coronary artery disease. 6. Hypertension. 7. Seizure disorder. 8. Paranoid schizophrenia. 9. Depression. PAST SURGICAL HISTORY: Significant for intraventricular pacemaker implantation. CURRENT MEDICATIONS: 1. Tylenol No. 3 one tablet p.o. q.4 h. p.r.n. 2. Albuterol 2.5 mg nebulized q.4 h. p.r.n. 3. Apixaban 5 mg p.o. twice daily. 4. Lasix 40 mg p.o. twice daily. 5. [place] 5/325 mg one tablet p.o. q.6 h. p.r.n. 6. DuoNeb nebulized q.4 h. p.r.n. 7. Protonix 40 mg p.o. daily. 8. Potassium chloride 10 mEq p.o. daily. 9. Risperdal 1 mg p.o. nightly. 10. Restoril 15 mg p.o. nightly. p.r.n. ALLERGIES: 1. Piperacillin. 2. Tazobactam. SOCIAL HISTORY: The patient is single and is a resident [facility]. The patient denies tobacco or alcohol use. PHYSICAL EXAMINATION: VITAL SIGNS: Temperature 97.5, respirations 18, pulse 67 to 75, and blood pressure 125/51. Pulse oximetry 88% on 2 L nasal cannula. GENERAL: The patient is a well-developed and well-nourished white female, who is in moderate respiratory distress. HEENT: Eyes, pupils are equal and responsive to light and accommodation. Extraocular movements are intact. NECK: Supple without lymphadenopathy. CHEST: Lungs are clear to auscultation bilaterally without wheezes or rales. CARDIOVASCULAR: Regular rhythm and rate. S1 and S2 normal without murmurs, rubs, or gallops. ABDOMEN: Soft, nontender, and nondistended. Positive bowel sounds. No evidence of hepatosplenomegaly. Currently, no rebound or guarding noted. EXTREMITIES: Negative for clubbing, cyanosis, or edema. RECTAL/GENITAL: Refused. NEUROLOGIC: Cranial nerves II through XII are grossly intact without focal deficits. Motor strength is 5/5 bilaterally. Deep tendon reflexes are 2+ plantar. LABORATORY STUDIES: WBC 9.8, hemoglobin 10.9, hematocrit 31.8, and platelets 161,000. Sodium 124, potassium 4.7, chloride 85, CO2 38, BUN 14, and creatinine 0.5. Glucose 118. Troponin 0.012. BNP elevated at 5241. Chest x-ray was reported as increased interstitial and perihilar patchy airspace opacities consistent with congestive heart failure. ASSESSMENT: This is a 77-year-old white female with: 1. Shortness of breath. 2. Hypoxia. 3. Acute on chronic congestive heart failure. 4. Atrial flutter. 5. Hyponatremia. 6. Chronic obstructive pulmonary disease. 7. Coronary artery disease. 8. Hypertension. 9. Seizure disorder. 10. Paranoid schizophrenia. TREATMENT: 1. Shortness of breath/congestive heart failure. Cardiology consultation has been obtained with Dr. Akbar Reno. The patient is currently receiving intravenous Lasix. We will follow recommendation of Cardiology. BNP is elevated at over greater than 5000. An echocardiogram is pending. 2. Atrial flutter. Continue Eliquis as above. 3. Hyponatremia. The patient is currently receiving intravenous fluids. 4. Chronic obstructive pulmonary disease. Continue DuoNeb nebulized as above. The patient was initially placed on BiPAP in the emergency room. A Pulmonary consultation has been obtained with Dr. Mendel Sierra. 5. Hypertension. Continue Lasix as above. 6. Seizure disorder. The patient is currently off antiseizure medication. 7. Paranoid schizophrenia. Continue Risperdal as above. Juan Dutta M.D. DR: CASSANDRA JOB#: [id number] CC:
[2018-09-18] VITALS (8 sets, daily range): BP systolic 112–140; BP diastolic 53–64
--- NOTE | 2018-09-18 | NUR ---
NURSE NOTES: Patient in bed sleeping comfortably. no s/s of acute distress noted.
[2018-09-18] MEDS: HYDROcodone/Acetamin 5/325 tab ORAL PRN (02:11)
[2018-09-18 05:40] LABS: EOSINOPHILS % (AUTO) 0.7 % (0.0-3.0); HEMATOCRIT 27.3 % (37.0-47.0); HEMOGLOBIN 8.6 G/DL (12.0-16.0); LYMPHOCYTES % (AUTO) 17.3 % (20.0-45.0); MEAN CORPUSCULAR VOLUME 81 FL (80-99); MONOCYTES % (AUTO) 13.5 % (1.0-10.0); NEUTROPHILS % (AUTO) 66.4 % (45.0-75.0); PLATELET COUNT 154 K/UL (150-450); RED BLOOD COUNT 3.36 M/UL (4.20-5.40); RED CELL DISTRIBUTION WIDTH 18.3 % (11.6-14.8); WHITE BLOOD COUNT 4.3 K/UL (4.8-10.8)
[2018-09-18 06:09] LABS: ALANINE AMINOTRANSFERASE 11 U/L (12-78); ALBUMIN 2.3 G/DL (3.4-5.0); ALBUMIN/GLOBULIN RATIO 0.7 (1.0-2.7); ALKALINE PHOSPHATASE 45 U/L (46-116); ANION GAP 2 mmol/L (5-15); ASPARTATE AMINO TRANSFERASE 12 U/L (15-37); BILIRUBIN,TOTAL 0.3 MG/DL (0.2-1.0); BLOOD UREA NITROGEN 12 mg/dL (7-18); CALCIUM 8.2 MG/DL (8.5-10.1); CARBON DIOXIDE 40 MMOL/L (21-32); CHLORIDE 96 MMOL/L (98-107); CHOLESTEROL 143 MG/DL (< 200); CREATINE KINASE 10 U/L (26-308); CREATININE 0.6 MG/DL (0.55-1.30); FERRITIN 95 NG/ML (8-388); GAMMA GLUTAMYL TRANSPEPTIDASE 22 U/L (5-85); HDL CHOLESTEROL 36 MG/DL (40-60); PHOSPHORUS 3.1 MG/DL (2.5-4.9); POTASSIUM 3.7 MMOL/L (3.5-5.1); SODIUM 138 MMOL/L (136-145); TRIGLYCERIDES 74 MG/DL (30-150)
[2018-09-18 06:19] LABS: % IRON SATURATION 8 % (15-50); IRON 22 ug/dL (50-175); TOTAL IRON BINDING CAPACITY 280 ug/dL (250-450)
--- NOTE | 2018-09-18 07:13 | NUR ---
HAND-OFF: Report given to Vlad OVALLES.
--- NOTE | 2018-09-18 07:18 | NUR ---
NURSE NOTES: received patient report and update from cristobal mena. patient is on bed asleep. comfortable. not in acute distress. no arrythmias reported during the night. bed is low and locked for safety. will follow plan of care.
--- NOTE | 2018-09-18 07:30 | NUR ---
RESPIRATORY NOTE: Received patient off BiPAP. Patient refuses to wear it. Pt is not in any resp distress. Will monitor pt progress.
[2018-09-18] MEDS: Pantoprazole Inj IVP SCH (09:27)
[2018-09-18] MEDS: Eliquis 2.5mg tablet ORAL SCH ×2 (09:27→17:21)
[2018-09-18] MEDS: Docusate 100mg/10ml Liq ORAL SCH ×3 (09:27→17:21)
[2018-09-18] MEDS: acetaZOLAMIDE 500mg Inj IVP SCH ×2 (09:31→22:50)
--- NOTE | 2018-09-18 09:48 | Diagnostic Imaging Report ---
Indication: Dyspnea Comparison: 09/16/2018 Technique: AP view of the chest Findings: Patient is rotated and leaning to the left. Heart is enlarged but stable compared to the prior exam. Dense mitral annular calcifications and atherosclerotic calcifications in the aorta again noted. As such opacification/edema persists. There is worsening of aeration with increased opacification of the left mid and lower lung which may be related to increasing pleural effusion or increasing atelectasis, with the latter suggested as there is some shift of mediastinal structures to the left. No evidence of pneumothorax. Limited evaluation of the osseous structures due to underpenetration however no acute osseous abnormality is appreciated. IMPRESSION: Interval worsening of aeration with increased opacification of the left mid and lower lung which may be related to increased pleural fluid. Additional considerations include worsening atelectasis, including the possibility of complete or near complete atelectasis of the left lower lobe, which should especially be considered given apparent shift of mediastinal structures to the left.
--- NOTE | 2018-09-18 09:55 | Nephrology Progress Note ---
Assessment/Plan Problem List: (1) Respiratory failure, acute (2) Hyponatremia (3) Seizure disorder (4) Acute diastolic CHF (congestive heart failure) (5) COPD (chronic obstructive pulmonary disease) (6) Pacemaker Assessment HypoNatremia ? Etiology: depletional / Diuretics / SIADH ... Need more data to pin point etiology Acute respiratory failure on BIPAP- COPD Encephalopathy due to high CO2 Pacemaker UTI Low MCV Anemia Hypoalbuminemia EjFx 55% last admission h/o Atfib Plan Plan; BIPAP as needed- Diamox adjust dose López 3% saline one tinme given stop lasix IV iron monitor lytes Anemia clinton per orders Objective Objective Last 24 Hour Vital Signs Date Time Temp Pulse Resp B/P (MAP) Pulse Ox O2 Delivery O2 Flow Rate FiO2 09/18/18 08:00 97.3 89 21 112/56 (74) 97 09/18/18 07:30 Nasal Cannula 5.0 40 09/18/18 07:30 100 Nasal Cannula 5.0 40 09/18/18 07:30 78 20 99 09/18/18 07:30 98 17 Nasal Cannula 2.0 28 09/18/18 05:20 78 20 99 09/18/18 04:00 Bi-pap 09/18/18 04:00 97.6 80 20 123/58 (79) 97 09/18/18 04:00 40 09/18/18 04:00 90 09/18/18 03:26 70 20 98 Full Face 40 09/18/18 02:41 98.0 09/18/18 01:13 73 23 98 Full Face 40 09/18/18 00:00 Bi-pap 09/18/18 00:00 98.0 80 15 121/57 (78) 97 09/18/18 00:00 40 09/17/18 23:37 87 09/17/18 23:30 81 27 95 Full Face 40 09/17/18 21:00 84 25 97 Full Face 40 09/17/18 20:00 40 09/17/18 20:00 98.7 76 29 117/55 (75) 95 09/17/18 20:00 Bi-pap 09/17/18 19:09 92 09/17/18 19:02 83 30 95 Full Face 40 09/17/18 16:45 92 24 97 09/17/18 16:00 97.7 76 27 113/65 (81) 100 09/17/18 16:00 77 09/17/18 16:00 40 09/17/18 16:00 Bi-pap 09/17/18 14:46 80 25 99 Facial 40 09/17/18 13:50 82 24 97 Facial 40 09/17/18 12:30 94 09/17/18 12:00 Bi-pap 09/17/18 12:00 82 09/17/18 12:00 98.2 82 17 117/55 (75) 100 09/17/18 12:00 40 09/17/18 11:57 76 93 09/17/18 10:49 75 25 96 Facial 40 Intake and Output 09/17/18 09/18/18 19:00 07:00 Intake Total 680 ml 960 ml Output Total 1400 ml 1500 ml Balance -720 ml -540 ml Intake Oral 650 ml 600 ml IV Total 30 ml 360 ml Output Urine Total 1400 ml 1500 ml Laboratory Tests 09/17/18 17:50: Urine Osmolality 169L, Urine Random Sodium < 20L 09/18/18 03:15: White Blood Count 4.3#L, Red Blood Count 3.36L, Hemoglobin 8.6L, Hematocrit 27.3L, Mean Corpuscular Volume 81, Mean Corpuscular Hemoglobin 25.7L, Mean Corpuscular Hemoglobin Concent 31.5L, Red Cell Distribution Width 18.3H, Platelet Count 154, Mean Platelet Volume 8.2, Neutrophils (%) (Auto) 66.4, Lymphocytes (%) (Auto) 17.3L, Monocytes (%) (Auto) 13.5H, Eosinophils (%) (Auto ) 0.7, Basophils (%) (Auto) 2.0, Sodium Level 138, Potassium Level 3.7, Chloride Level 96L, Carbon Dioxide Level 40H, Anion Gap 2L, Blood Urea Nitrogen 12, Creatinine 0.6, Estimat Glomerular Filtration Rate , Glucose Level 83, Hemoglobin A1c 5.2, Osmolality 280L, Uric Acid 6.2, Calcium Level 8.2L, Phosphorus Level 3.1, Magnesium Level 1.6L, Iron Level 22L, Total Iron Binding Capacity 280, Percent Iron Saturation 8L, Unsaturated Iron Binding 258, Ferritin 95, Total Bilirubin 0.3, Gamma Glutamyl Transpeptidase 22, Aspartate Amino Transf (AST/SGOT) 12L, Alanine Aminotransferase (ALT/SGPT) 11L, Alkaline Phosphatase 45L, Total Creatine Kinase 10L, C-Reactive Protein, Quantitative 2.6H, Pro-B-Type Natriuretic Peptide 3829H, Total Protein 5.8L, Albumin 2.3L, Globulin 3.5, Albumin/Globulin Ratio 0.7L, Triglycerides Level 74, Cholesterol Level 143, LDL Cholesterol 90, HDL Cholesterol 36L, Cholesterol/HDL Ratio 4.0, Vitamin B12 Level 638, Folate 8.4L, Thyroid Stimulating Hormone (TSH) 3.596, Cortisol AM Sample [Pending] 09/18/18 03:45: Troponin I 0.009 09/18/18 07:30: Arterial Blood pH 7.328L, Arterial Blood Partial Pressure CO2 80.3*H, Arterial Blood Partial Pressure O2 80.5, Arterial Blood HCO3 41.2*H, Arterial Blood Oxygen Saturation 94.8L, Arterial Blood Base Excess 12.9*H, Ian Test Positive Height (Feet): 5 Weight (Pounds): 169 Danilo Huber MD Sep 18, 2018 09:55
[2018-09-18] MEDS ORDERED: Solu-MEDROL 125mg Inj IVP SCH (10:00)
--- NOTE | 2018-09-18 10:20 | Pulmonology Progress Note ---
Assessment/Plan Problems: (1) Respiratory failure, acute (2) Acute encephalopathy (3) COPD (chronic obstructive pulmonary disease) (4) Atrial fibrillation with RVR (5) HTN (hypertension) (6) Seizure disorder (7) Pacemaker (8) Cerebral vascular disease (9) Gout Assessment/Plan continue diuretics check electrolytes Phos supplement respiratory treatment monitor heart rate aspiration precaution dvt prophylaxis. Subjective ROS Limited/Unobtainable: No Constitutional: Reports: no symptoms HEENT: Repors: no symptoms Allergies: Coded Allergies: PIPERACILLIN (Unverified Allergy, Unknown, 05/21/18) tolerates cephalosporins TAZOBACTAM (Unverified Allergy, Unknown, 03/10/18) Objective Last 24 Hour Vital Signs Date Time Temp Pulse Resp B/P (MAP) Pulse Ox O2 Delivery O2 Flow Rate FiO2 09/18/18 09:00 40 09/18/18 08:00 Bi-pap 09/18/18 08:00 97.3 89 21 112/56 (74) 97 09/18/18 07:42 76 09/18/18 07:30 Nasal Cannula 5.0 40 09/18/18 07:30 100 Nasal Cannula 5.0 40 09/18/18 07:30 78 20 99 09/18/18 07:30 98 17 Nasal Cannula 2.0 28 09/18/18 05:20 78 20 99 09/18/18 04:00 Bi-pap 09/18/18 04:00 97.6 80 20 123/58 (79) 97 09/18/18 04:00 40 09/18/18 04:00 90 09/18/18 03:26 70 20 98 Full Face 40 09/18/18 02:41 98.0 09/18/18 01:13 73 23 98 Full Face 40 09/18/18 00:00 Bi-pap 09/18/18 00:00 98.0 80 15 121/57 (78) 97 09/18/18 00:00 40 09/17/18 23:37 87 09/17/18 23:30 81 27 95 Full Face 40 09/17/18 21:00 84 25 97 Full Face 40 09/17/18 20:00 40 09/17/18 20:00 98.7 76 29 117/55 (75) 95 09/17/18 20:00 Bi-pap 09/17/18 19:09 92 09/17/18 19:02 83 30 95 Full Face 40 09/17/18 16:45 92 24 97 09/17/18 16:00 97.7 76 27 113/65 (81) 100 09/17/18 16:00 77 09/17/18 16:00 40 09/17/18 16:00 Bi-pap 09/17/18 14:46 80 25 99 Facial 40 09/17/18 13:50 82 24 97 Facial 40 09/17/18 12:30 94 09/17/18 12:00 Bi-pap 09/17/18 12:00 82 09/17/18 12:00 98.2 82 17 117/55 (75) 100 09/17/18 12:00 40 09/17/18 11:57 76 93 09/17/18 10:49 75 25 96 Facial 40 Intake and Output 09/17/18 09/18/18 19:00 07:00 Intake Total 680 ml 960 ml Output Total 1400 ml 1500 ml Balance -720 ml -540 ml Intake Oral 650 ml 600 ml IV Total 30 ml 360 ml Output Urine Total 1400 ml 1500 ml Objective off bipap General Appearance: WD/WN HEENT: normocephalic, atraumatic Respiratory/Chest: chest wall non-tender, crackles/rales Cardiovascular: normal peripheral pulses, normal rate Abdomen: normal bowel sounds, soft, non tender, no organomegaly Genitourinary: normal external genitalia Skin: no rash Neurologic/Psychiatric: no motor/sensory deficits Microbiology Date/Time Source Procedure Growth Status 09/16/18 22:35 Blood Blood Culture - Preliminary NO GROWTH AFTER 24 HOURS Resulted 09/16/18 22:30 Blood Blood Culture - Preliminary NO GROWTH AFTER 24 HOURS Resulted Laboratory Tests 09/17/18 17:50: Urine Osmolality 169L, Urine Random Sodium < 20L 09/18/18 03:15: White Blood Count 4.3#L, Red Blood Count 3.36L, Hemoglobin 8.6L, Hematocrit 27.3L, Mean Corpuscular Volume 81, Mean Corpuscular Hemoglobin 25.7L, Mean Corpuscular Hemoglobin Concent 31.5L, Red Cell Distribution Width 18.3H, Platelet Count 154, Mean Platelet Volume 8.2, Neutrophils (%) (Auto) 66.4, Lymphocytes (%) (Auto) 17.3L, Monocytes (%) (Auto) 13.5H, Eosinophils (%) (Auto ) 0.7, Basophils (%) (Auto) 2.0, Sodium Level 138, Potassium Level 3.7, Chloride Level 96L, Carbon Dioxide Level 40H, Anion Gap 2L, Blood Urea Nitrogen 12, Creatinine 0.6, Estimat Glomerular Filtration Rate , Glucose Level 83, Hemoglobin A1c 5.2, Osmolality 280L, Uric Acid 6.2, Calcium Level 8.2L, Phosphorus Level 3.1, Magnesium Level 1.6L, Iron Level 22L, Total Iron Binding Capacity 280, Percent Iron Saturation 8L, Unsaturated Iron Binding 258, Ferritin 95, Total Bilirubin 0.3, Gamma Glutamyl Transpeptidase 22, Aspartate Amino Transf (AST/SGOT) 12L, Alanine Aminotransferase (ALT/SGPT) 11L, Alkaline Phosphatase 45L, Total Creatine Kinase 10L, C-Reactive Protein, Quantitative 2.6H, Pro-B-Type Natriuretic Peptide 3829H, Total Protein 5.8L, Albumin 2.3L, Globulin 3.5, Albumin/Globulin Ratio 0.7L, Triglycerides Level 74, Cholesterol Level 143, LDL Cholesterol 90, HDL Cholesterol 36L, Cholesterol/HDL Ratio 4.0, Vitamin B12 Level 638, Folate 8.4L, Thyroid Stimulating Hormone (TSH) 3.596, Cortisol AM Sample [Pending] 09/18/18 03:45: Troponin I 0.009 09/18/18 07:30: Arterial Blood pH 7.328L, Arterial Blood Partial Pressure CO2 80.3*H, Arterial Blood Partial Pressure O2 80.5, Arterial Blood HCO3 41.2*H, Arterial Blood Oxygen Saturation 94.8L, Arterial Blood Base Excess 12.9*H, Ian Test Positive Current Medications Medications (Trade) Dose Ordered Sig/Ibrahima Route PRN Reason Start Time Stop Time Status Last Admin Dose Admin Acetaminophen (Tylenol) 650 mg Q4H PRN ORAL Mild Pain (Pain Scale 1-3) 09/17/18 06:45 10/17/18 06:44 Acetaminophen/ Codeine Phosphate (Tylenol #3) 1 tab Q4H PRN ORAL Severe Pain (Pain Scale 7-10) 09/17/18 06:45 09/24/18 06:44 Acetaminophen/ Hydrocodone Bitart ([place] 5/325) 1 tab Q4H PRN ORAL moderate pain 09/17/18 06:45 09/24/18 06:44 09/18/18 02:11 Acetazolamide (Diamox 500mg Inj) 250 mg EVERY 8 HOURS IVP 09/18/18 14:00 10/17/18 20:59 Albuterol/ Ipratropium (Albuterol/ Ipratropium) 3 ml Q4H PRN HHN Shortness of breath 09/17/18 06:45 09/22/18 06:44 Apixaban (Eliquis) 5 mg BID ORAL 09/17/18 09:00 10/17/18 08:59 09/18/18 09:27 Dextrose (Dextrose 50%) 25 ml Q30M PRN IV Hypoglycemia 09/17/18 07:00 10/17/18 06:59 Dextrose (Dextrose 50%) 50 ml Q30M PRN IV Hypoglycemia 09/17/18 07:00 10/17/18 06:59 Docusate Sodium (Colace) 100 mg TID ORAL 09/17/18 18:00 10/17/18 08:59 09/18/18 09:27 Folic Acid (Folate) 5 mg DAILY ORAL 09/18/18 10:00 10/18/18 09:59 Iron Sucrose 200 mg/Sodium Chloride 120 ml @ 240 mls/hr ONCE IV 09/18/18 11:00 09/18/18 12:00 Methylprednisolone Sodium Succinate (Solu-MEDROL) 40 mg Q8H IVP 09/18/18 18:00 09/19/18 10:01 Methylprednisolone Sodium Succinate (Solu-MEDROL) 125 mg ONCE IVP 09/18/18 10:00 09/18/18 11:00 Ondansetron HCl (Zofran) 4 mg Q6H PRN IVP Nausea & Vomiting 09/17/18 07:00 10/17/18 06:59 Pantoprazole (Protonix) 40 mg Q12HR ORAL 09/18/18 21:00 10/18/18 20:59 Polyethylene Glycol (Miralax) 17 gm DAILYPRN PRN ORAL Constipation 09/17/18 06:45 10/17/18 06:44 Potassium Chloride (K-Dur) 40 meq DAILY ORAL 09/18/18 09:00 10/17/18 08:59 09/18/18 09:27 Risperidone (RisperDAL) 1 mg BEDTIME ORAL 09/17/18 21:00 10/17/18 20:59 09/17/18 20:13 Temazepam (Restoril) 15 mg HSPRN PRN ORAL Insomnia 09/17/18 06:45 09/24/18 06:44 09/17/18 20:56 Thiamine HCl 100 mg/Dextrose 56 ml @ 112 mls/hr DAILY IVPB 09/18/18 11:00 10/18/18 10:59 Mendel Sierra MD Sep 18, 2018 10:20
[2018-09-18] MEDS ORDERED: Thiamine HCl 100 MG in D5W 55 ML IVPB SCH (11:00)
[2018-09-18] MEDS: Iron Sucrose 200 MG in NS 110 ML IV SCH ×2 (13:31→13:40)
[2018-09-18] MEDS ORDERED: acetaZOLAMIDE 500mg Inj IVP SCH (14:00)
--- NOTE | 2018-09-18 17:37 | Internal Med Progress Note ---
Subjective Date of Service: Sep 18, 2018 Physician Name Juan Dutta Attending Physician Yonathan Mendoza MD Current Medications Medications (Trade) Dose Ordered Sig/Ibrahima Route PRN Reason Start Time Stop Time Status Last Admin Dose Admin Acetaminophen (Tylenol) 650 mg Q4H PRN ORAL Mild Pain (Pain Scale 1-3) 09/17/18 06:45 10/17/18 06:44 Acetaminophen/ Codeine Phosphate (Tylenol #3) 1 tab Q4H PRN ORAL Severe Pain (Pain Scale 7-10) 09/17/18 06:45 09/24/18 06:44 Acetaminophen/ Hydrocodone Bitart ([place] 5/325) 1 tab Q4H PRN ORAL moderate pain 09/17/18 06:45 09/24/18 06:44 09/18/18 02:11 Acetazolamide (Diamox 500mg Inj) 250 mg EVERY 8 HOURS IVP 09/18/18 14:00 10/17/18 20:59 09/18/18 13:32 Albuterol/ Ipratropium (Albuterol/ Ipratropium) 3 ml Q4H PRN HHN Shortness of breath 09/17/18 06:45 09/22/18 06:44 Apixaban (Eliquis) 5 mg BID ORAL 09/17/18 09:00 10/17/18 08:59 09/18/18 17:21 Dextrose (Dextrose 50%) 25 ml Q30M PRN IV Hypoglycemia 09/17/18 07:00 10/17/18 06:59 Dextrose (Dextrose 50%) 50 ml Q30M PRN IV Hypoglycemia 09/17/18 07:00 10/17/18 06:59 Docusate Sodium (Colace) 100 mg TID ORAL 09/17/18 18:00 10/17/18 08:59 09/18/18 17:21 Folic Acid (Folate) 5 mg DAILY ORAL 09/18/18 10:00 10/18/18 09:59 09/18/18 11:22 Methylprednisolone Sodium Succinate (Solu-MEDROL) 40 mg Q8H IVP 09/18/18 18:00 09/19/18 10:01 09/18/18 17:21 Ondansetron HCl (Zofran) 4 mg Q6H PRN IVP Nausea & Vomiting 09/17/18 07:00 10/17/18 06:59 Pantoprazole (Protonix) 40 mg Q12HR ORAL 09/18/18 21:00 10/18/18 20:59 Polyethylene Glycol (Miralax) 17 gm DAILYPRN PRN ORAL Constipation 09/17/18 06:45 10/17/18 06:44 Potassium Chloride (K-Dur) 40 meq DAILY ORAL 09/18/18 09:00 10/17/18 08:59 09/18/18 09:27 Risperidone (RisperDAL) 1 mg BEDTIME ORAL 09/17/18 21:00 10/17/18 20:59 09/17/18 20:13 Temazepam (Restoril) 15 mg HSPRN PRN ORAL Insomnia 09/17/18 06:45 09/24/18 06:44 09/17/18 20:56 Thiamine HCl 100 mg/Dextrose 56 ml @ 112 mls/hr DAILY IVPB 09/18/18 11:00 10/18/18 10:59 09/18/18 12:30 Allergies: Coded Allergies: PIPERACILLIN (Unverified Allergy, Unknown, 05/21/18) tolerates cephalosporins TAZOBACTAM (Unverified Allergy, Unknown, 03/10/18) Objective Last Vital Signs Date Time Temp Pulse Resp B/P (MAP) Pulse Ox O2 Delivery O2 Flow Rate FiO2 09/18/18 16:00 98.4 83 19 123/53 (76) 98 09/18/18 16:00 Bi-pap 09/18/18 16:00 40 09/18/18 07:30 5.0 Laboratory Tests Test 09/17/18 17:50 09/18/18 03:15 09/18/18 03:45 09/18/18 07:30 Urine Osmolality 169 mOsm/kg (429-449) L Urine Random Sodium < 20 mmol/L (20-110) L White Blood Count 4.3 K/UL (4.8-10.8) #L Red Blood Count 3.36 M/UL (4.20-5.40) L Hemoglobin 8.6 G/DL (12.0-16.0) L Hematocrit 27.3 % (37.0-47.0) L Mean Corpuscular Volume 81 FL (80-99) Mean Corpuscular Hemoglobin 25.7 PG (27.0-31.0) L Mean Corpuscular Hemoglobin Concent 31.5 G/DL (32.0-36.0) L Red Cell Distribution Width 18.3 % (11.6-14.8) H Platelet Count 154 K/UL (150-450) Mean Platelet Volume 8.2 FL (6.5-10.1) Neutrophils (%) (Auto) 66.4 % (45.0-75.0) Lymphocytes (%) (Auto) 17.3 % (20.0-45.0) L Monocytes (%) (Auto) 13.5 % (1.0-10.0) H Eosinophils (%) (Auto) 0.7 % (0.0-3.0) Basophils (%) (Auto) 2.0 % (0.0-2.0) Sodium Level 138 MMOL/L (136-145) Potassium Level 3.7 MMOL/L (3.5-5.1) Chloride Level 96 MMOL/L (98-107) L Carbon Dioxide Level 40 MMOL/L (21-32) H Anion Gap 2 mmol/L (5-15) L Blood Urea Nitrogen 12 mg/dL (7-18) Creatinine 0.6 MG/DL (0.55-1.30) Estimat Glomerular Filtration Rate mL/min (>60) Glucose Level 83 MG/DL (74-106) Hemoglobin A1c 5.2 % (4.3-6.0) Osmolality 280 mOsm/kg (297-317) L Uric Acid 6.2 MG/DL (2.6-7.2) Calcium Level 8.2 MG/DL (8.5-10.1) L Phosphorus Level 3.1 MG/DL (2.5-4.9) Magnesium Level 1.6 MG/DL (1.8-2.4) L Iron Level 22 ug/dL (50-175) L Total Iron Binding Capacity 280 ug/dL (250-450) Percent Iron Saturation 8 % (15-50) L Unsaturated Iron Binding 258 ug/dL (112-346) Ferritin 95 NG/ML (8-388) Total Bilirubin 0.3 MG/DL (0.2-1.0) Gamma Glutamyl Transpeptidase 22 U/L (5-85) Aspartate Amino Transf (AST/SGOT) 12 U/L (15-37) L Alanine Aminotransferase (ALT/SGPT) 11 U/L (12-78) L Alkaline Phosphatase 45 U/L (46-116) L Total Creatine Kinase 10 U/L (26-308) L C-Reactive Protein, Quantitative 2.6 mg/dL (0.00-0.90) H Pro-B-Type Natriuretic Peptide 3829 pg/mL (0-125) H Total Protein 5.8 G/DL (6.4-8.2) L Albumin 2.3 G/DL (3.4-5.0) L Globulin 3.5 g/dL Albumin/Globulin Ratio 0.7 (1.0-2.7) L Triglycerides Level 74 MG/DL (30-150) Cholesterol Level 143 MG/DL (< 200) LDL Cholesterol 90 mg/dL (<100) HDL Cholesterol 36 MG/DL (40-60) L Cholesterol/HDL Ratio 4.0 (3.3-4.4) Vitamin B12 Level 638 PG/ML (193-986) Folate 8.4 NG/ML (8.6-58.9) L Thyroid Stimulating Hormone (TSH) 3.596 uiU/mL (0.358-3.740) Cortisol AM Sample 10.8 UG/DL Troponin I 0.009 ng/mL (0.000-0.056) Arterial Blood pH 7.328 (7.350-7.450) Arterial Blood Partial Pressure CO2 80.3 mmHg (35.0-45.0) *H Arterial Blood Partial Pressure O2 80.5 mmHg (75.0-100.0) Arterial Blood HCO3 41.2 mmol/L (22.0-26.0) *H Arterial Blood Oxygen Saturation 94.8 % (95-100) L Arterial Blood Base Excess 12.9 (-2-2) *H Ian Test Positive Microbiology Date/Time Source Procedure Growth Status 09/16/18 22:35 Blood Blood Culture - Preliminary NO GROWTH AFTER 24 HOURS Resulted 09/16/18 22:30 Blood Blood Culture - Preliminary NO GROWTH AFTER 24 HOURS Resulted Intake and Output 09/17/18 09/18/18 19:00 07:00 Intake Total 680 ml 960 ml Output Total 1400 ml 1500 ml Balance -720 ml -540 ml Intake Oral 650 ml 600 ml IV Total 30 ml 360 ml Output Urine Total 1400 ml 1500 ml Objective PHYSICAL EXAMINATION: GENERAL: The patient is a well-developed and well-nourished white female, who is in moderate respiratory distress. HEENT: Eyes, pupils are equal and responsive to light and accommodation. Extraocular movements are intact. NECK: Supple without lymphadenopathy. CHEST: Few rales in bilateral bases, otherwise, Lungs are clear to auscultation bilaterally without wheezes CARDIOVASCULAR: Regular rhythm and rate. S1 and S2 normal without murmurs, rubs, or gallops. ABDOMEN: Soft, nontender, and nondistended. Positive bowel sounds. No evidence of hepatosplenomegaly. Currently, no rebound or guarding noted. EXTREMITIES: Negative for clubbing, cyanosis, or edema. RECTAL/GENITAL: Refused. NEUROLOGIC: Cranial nerves II through XII are grossly intact without focal deficits. Motor strength is 5/5 bilaterally. Deep tendon reflexes are 2+ plantar. Assessment/Plan Assessment/Plan ASSESSMENT: This is a 77-year-old white female with: 1. Shortness of breath. 2. Hypoxia. 3. Acute on chronic congestive heart failure. 4. Atrial flutter. 5. Hyponatremia. 6. Chronic obstructive pulmonary disease. 7. Coronary artery disease. 8. Hypertension. 9. Seizure disorder. 10. Paranoid schizophrenia. 11. Intraventricular pacemaker TREATMENT: 1. Shortness of breath/congestive heart failure. Cardiology consultation has been obtained with Dr. Milian. The patient is currently receiving intravenous Lasix. We will follow recommendation of Cardiology. BNP is elevated at over greater than 5000. An echocardiogram is pending. 2. Atrial flutter. Continue Eliquis as above. 3. Hyponatremia. The patient is currently receiving intravenous fluids. 4. Chronic obstructive pulmonary disease. Continue DuoNeb nebulized as above. The patient was initially placed on BiPAP in the emergency room. A Pulmonary consultation has been obtained with Dr. Mendel Sierra. 5. Hypertension. Continue Lasix as above. 6. Seizure disorder. The patient is currently off antiseizure medication. 7. Paranoid schizophrenia. Continue Risperdal as above. Juan Dutta MD Sep 18, 2018 17:37
[2018-09-18] MEDS ORDERED: HYDROcodone/Acetamin 5/325 tab ORAL PRN (18:00)
[2018-09-18] MEDS ORDERED: Albuterol/Ipratropium 3ml neb HHN PRN (18:00)
[2018-09-18] MEDS ORDERED: Miralax 17gm pkt ORAL PRN (18:00)
[2018-09-18] MEDS ORDERED: Solu-MEDROL 40mg Inj IVP SCH (18:00)
[2018-09-18] MEDS ORDERED: Tylenol #3 tab (300mg/30mg) ORAL PRN (18:00)
--- NOTE | 2018-09-18 18:18 | NUR ---
TRANSFER TO FLOOR: Patient transferred to 218-[address] Dougherty order. Report given to deshaun mena. Belongings and medications given to deshaun mena. Family and or S/O informed of transfer.
--- NOTE | 2018-09-18 18:20 | NUR ---
NURSE NOTES: Pt received from CHARLETTE Ellsworth alert and oriented x3 with no acute s/s of distress. IV site asymptomatic and patent. Belongings with patient upon transfer, signed with transferring RN. Pt has nonblanchable redness on right heel. WCP taken and WCP initiated. Bed in lowest position, call light and belongings within reach.
--- NOTE | 2018-09-18 19:16 | Cardiology Progress Note ---
Assessment/Plan Assessment/Plan [id number] Objective Last 24 Hour Vital Signs Date Time Temp Pulse Resp B/P (MAP) Pulse Ox O2 Delivery O2 Flow Rate FiO2 09/18/18 17:51 98.9 84 20 140/61 (87) 98 09/18/18 16:00 98.4 83 19 123/53 (76) 98 09/18/18 16:00 82 09/18/18 16:00 Bi-pap 09/18/18 16:00 40 09/18/18 12:00 96.4 80 20 129/58 (81) 95 09/18/18 12:00 Bi-pap 09/18/18 12:00 40 09/18/18 11:36 83 09/18/18 10:30 76 16 97 09/18/18 09:09 72 16 96 09/18/18 09:00 40 09/18/18 08:00 Bi-pap 09/18/18 08:00 97.3 89 21 112/56 (74) 97 09/18/18 07:42 76 09/18/18 07:30 Nasal Cannula 5.0 40 09/18/18 07:30 100 Nasal Cannula 5.0 40 09/18/18 07:30 78 20 99 09/18/18 07:30 98 17 Nasal Cannula 2.0 28 09/18/18 05:20 78 20 99 09/18/18 04:00 Bi-pap 09/18/18 04:00 97.6 80 20 123/58 (79) 97 09/18/18 04:00 40 09/18/18 04:00 90 09/18/18 03:26 70 20 98 Full Face 40 09/18/18 02:41 98.0 09/18/18 01:13 73 23 98 Full Face 40 09/18/18 00:00 Bi-pap 09/18/18 00:00 98.0 80 15 121/57 (78) 97 09/18/18 00:00 40 09/17/18 23:37 87 09/17/18 23:30 81 27 95 Full Face 40 09/17/18 21:00 84 25 97 Full Face 40 09/17/18 20:00 40 09/17/18 20:00 98.7 76 29 117/55 (75) 95 09/17/18 20:00 Bi-pap Intake and Output 09/17/18 09/18/18 19:00 07:00 Intake Total 680 ml 960 ml Output Total 1400 ml 1500 ml Balance -720 ml -540 ml Intake Oral 650 ml 600 ml IV Total 30 ml 360 ml Output Urine Total 1400 ml 1500 ml Laboratory Tests Test 09/18/18 03:15 09/18/18 03:45 09/18/18 07:30 White Blood Count 4.3 K/UL (4.8-10.8) #L Red Blood Count 3.36 M/UL (4.20-5.40) L Hemoglobin 8.6 G/DL (12.0-16.0) L Hematocrit 27.3 % (37.0-47.0) L Mean Corpuscular Volume 81 FL (80-99) Mean Corpuscular Hemoglobin 25.7 PG (27.0-31.0) L Mean Corpuscular Hemoglobin Concent 31.5 G/DL (32.0-36.0) L Red Cell Distribution Width 18.3 % (11.6-14.8) H Platelet Count 154 K/UL (150-450) Mean Platelet Volume 8.2 FL (6.5-10.1) Neutrophils (%) (Auto) 66.4 % (45.0-75.0) Lymphocytes (%) (Auto) 17.3 % (20.0-45.0) L Monocytes (%) (Auto) 13.5 % (1.0-10.0) H Eosinophils (%) (Auto) 0.7 % (0.0-3.0) Basophils (%) (Auto) 2.0 % (0.0-2.0) Sodium Level 138 MMOL/L (136-145) Potassium Level 3.7 MMOL/L (3.5-5.1) Chloride Level 96 MMOL/L (98-107) L Carbon Dioxide Level 40 MMOL/L (21-32) H Anion Gap 2 mmol/L (5-15) L Blood Urea Nitrogen 12 mg/dL (7-18) Creatinine 0.6 MG/DL (0.55-1.30) Estimat Glomerular Filtration Rate mL/min (>60) Glucose Level 83 MG/DL (74-106) Hemoglobin A1c 5.2 % (4.3-6.0) Osmolality 280 mOsm/kg (297-317) L Uric Acid 6.2 MG/DL (2.6-7.2) Calcium Level 8.2 MG/DL (8.5-10.1) L Phosphorus Level 3.1 MG/DL (2.5-4.9) Magnesium Level 1.6 MG/DL (1.8-2.4) L Iron Level 22 ug/dL (50-175) L Total Iron Binding Capacity 280 ug/dL (250-450) Percent Iron Saturation 8 % (15-50) L Unsaturated Iron Binding 258 ug/dL (112-346) Ferritin 95 NG/ML (8-388) Total Bilirubin 0.3 MG/DL (0.2-1.0) Gamma Glutamyl Transpeptidase 22 U/L (5-85) Aspartate Amino Transf (AST/SGOT) 12 U/L (15-37) L Alanine Aminotransferase (ALT/SGPT) 11 U/L (12-78) L Alkaline Phosphatase 45 U/L (46-116) L Total Creatine Kinase 10 U/L (26-308) L C-Reactive Protein, Quantitative 2.6 mg/dL (0.00-0.90) H Pro-B-Type Natriuretic Peptide 3829 pg/mL (0-125) H Total Protein 5.8 G/DL (6.4-8.2) L Albumin 2.3 G/DL (3.4-5.0) L Globulin 3.5 g/dL Albumin/Globulin Ratio 0.7 (1.0-2.7) L Triglycerides Level 74 MG/DL (30-150) Cholesterol Level 143 MG/DL (< 200) LDL Cholesterol 90 mg/dL (<100) HDL Cholesterol 36 MG/DL (40-60) L Cholesterol/HDL Ratio 4.0 (3.3-4.4) Vitamin B12 Level 638 PG/ML (193-986) Folate 8.4 NG/ML (8.6-58.9) L Thyroid Stimulating Hormone (TSH) 3.596 uiU/mL (0.358-3.740) Cortisol AM Sample 10.8 UG/DL Troponin I 0.009 ng/mL (0.000-0.056) Arterial Blood pH 7.328 (7.350-7.450) Arterial Blood Partial Pressure CO2 80.3 mmHg (35.0-45.0) *H Arterial Blood Partial Pressure O2 80.5 mmHg (75.0-100.0) Arterial Blood HCO3 41.2 mmol/L (22.0-26.0) *H Arterial Blood Oxygen Saturation 94.8 % (95-100) L Arterial Blood Base Excess 12.9 (-2-2) *H Ian Test Positive Microbiology Date/Time Source Procedure Growth Status 09/16/18 22:35 Blood Blood Culture - Preliminary NO GROWTH AFTER 24 HOURS Resulted 09/16/18 22:30 Blood Blood Culture - Preliminary NO GROWTH AFTER 24 HOURS Resulted Akbar Reno MD Sep 18, 2018 19:16
--- NOTE | 2018-09-18 19:30 | NUR ---
HAND-OFF: Report given to CHARLETTE Palacios. No acute s/s of distress.
--- NOTE | 2018-09-18 21:15 | Consultation ---
DATE OF CONSULTATION: 09/18/2018 CARDIOLOGY CONSULTATION CONSULTING PHYSICIAN: Akbar Reno M.D. REFERRING PHYSICIAN: Mendel Sierra M.D. REASON FOR REFERRAL: Shortness of breath. HISTORY OF PRESENT ILLNESS: This is an elderly female, who is known to me from prior evaluation and hospitalization. The patient presented to the hospital from a convalescent facility because of shortness of breath on 09/16/2018, was given several albuterol treatments, and shortness of breath has not improved. She was readmitted, has been getting some breathing treatments, she is better now but has not come back down to normal. She does not have any chest pain. There is no dizziness or lightheadedness. No heart pounding or palpitations. PAST MEDICAL HISTORY: Positive for history of atrial fibrillation and flutter that . She does have history of bradycardia for which she underwent permanent pacemaker implantation, history of diastolic heart failure, chronic obstructive pulmonary disease, dementia, respiratory failure, toxic metabolic encephalopathy, schizophrenia, coronary artery disease of unknown detail, hypertension, pleural effusion, bacteremia with Staphylococcus hominis, major depression, overactive bladder, hyperlipidemia, gout, epilepsy, gastroesophageal reflux disease, MRSA colonization, systemic hypertension, and psychosis. ALLERGIES: She is allergic to tazobactam as well as piperacillin. SOCIAL HISTORY: She is a resident of convalescent facility. Smoked 30 years ago. No alcoholic beverages. She used to drink 30 years ago as well. REVIEW OF SYSTEMS: GASTROINTESTINAL: Occasional nausea. No diarrhea. No vomiting. No bloody stools or black tarry stools. GENITOURINARY: Negative. PULMONARY: Positive coughing and wheezing. CONSTITUTIONAL: Fevers and chills. PHYSICAL EXAMINATION: GENERAL: Shows to be elderly female, in no respiratory distress. Nasal cannula in place. NECK: Supple. No jugular venous distention. LUNGS: Inspiratory and expiratory wheezes. CARDIAC: Irregularly irregular. No heaves, thrills, or gallops noted. ABDOMEN: Soft, nontender. Positive bowel sounds. EXTREMITIES: There is no clubbing, cyanosis, or edema. NEUROLOGICAL: She is awake, alert, responsive. She is not requiring BiPAP at this at this moment. LABORATORY AND DIAGNOSTIC DATA: White count of 4.3, down from 9.8, hemoglobin 8.6 down from 10.0, platelet count of 154. Sodium is 138, potassium 3.7, chloride 96, bicarb of 40, BUN 12, creatinine 0.6, and glucose of 83. Troponin 0.09 and CK of 10. ProBNP of 3829. She has had levels as high as 5200 at the time of admission in this hospitalization. Chest x-ray showed increased opacification left middle and lower lungs which may be related to increased pleural effusions, portion of atelectasis should also be considered. Electrocardiogram shows atrial fibrillation, ventricular response appears to be controlled, anteroseptal Q-waves. Venous duplex of the lower extremity was negative. An echocardiogram performed a couple days ago shows ejection fraction 55%, peak aortic gradient of 15 with mean of 7 with aortic valve area of 1.6 and a PA pressure of 32. ASSESSMENT AND PLAN: 1. Bronchospasm. 2. Possible left-sided infiltrate or pneumonia. 3. Diastolic heart failure history. 4. Permanent atrial fibrillation. This patient was seen in cardiac consultation. The patient is doing relatively well although she has still significant expiratory and inspiratory wheezes. She should be continued for treatment of chronic obstructive pulmonary disease and maybe some diuretics may be in order but I do not think she needs continuous diuresis. She will be followed. An additional medications and recommendation will be provided as needed. Anticoagulation with Eliquis is being prescribed. She is getting DuoNeb at the present time as well as prednisone. The patient has also been receiving some acetazolamide to help with the metabolic alkalosis. Akbar Reno M.D. DR: Christina JOB#: [id number] CC:
--- NOTE | 2018-09-18 23:34 | NUR ---
NURSE NOTES: Callwed and left a message with Dr. Reno regarding her 14 beats of vtac. Pt is asleep. VSS. Will continue to monitor.
[2018-09-19] VITALS: BP 131/62
[2018-09-19] MEDS: Solu-MEDROL 40mg Inj IVP SCH ×2 (02:00→09:58)
[2018-09-19 04:00] VITALS: BP 129/66
[2018-09-19] MEDS: acetaZOLAMIDE 500mg Inj IVP SCH ×2 (06:49→13:41)
[2018-09-19 07:15] LABS: BASOPHILS % (AUTO) 0.6 % (0.0-2.0); EOSINOPHILS % (AUTO) 0.5 % (0.0-3.0); HEMOGLOBIN 9.9 G/DL (12.0-16.0); LYMPHOCYTES % (AUTO) 14.6 % (20.0-45.0); MEAN CORPUSCULAR VOLUME 83 FL (80-99); MONOCYTES % (AUTO) 9.2 % (1.0-10.0); NEUTROPHILS % (AUTO) 75.2 % (45.0-75.0); PLATELET COUNT 187 K/UL (150-450); RED BLOOD COUNT 3.86 M/UL (4.20-5.40); RED CELL DISTRIBUTION WIDTH 18.6 % (11.6-14.8); WHITE BLOOD COUNT 4.3 K/UL (4.8-10.8)
[2018-09-19 07:31] LABS: ALANINE AMINOTRANSFERASE 18 U/L (12-78); ALBUMIN 2.6 G/DL (3.4-5.0); ALBUMIN/GLOBULIN RATIO 0.6 (1.0-2.7); ALKALINE PHOSPHATASE 54 U/L (46-116); ANION GAP 1 mmol/L (5-15); ASPARTATE AMINO TRANSFERASE 16 U/L (15-37); BILIRUBIN,TOTAL 0.2 MG/DL (0.2-1.0); BLOOD UREA NITROGEN 9 mg/dL (7-18); CALCIUM 8.9 MG/DL (8.5-10.1); CARBON DIOXIDE 38 MMOL/L (21-32); CHLORIDE 98 MMOL/L (98-107); CREATININE 0.5 MG/DL (0.55-1.30); PHOSPHORUS 3.9 MG/DL (2.5-4.9); POTASSIUM 4.1 MMOL/L (3.5-5.1); SODIUM 137 MMOL/L (136-145)
--- NOTE | 2018-09-19 07:35 | NUR ---
NURSE NOTES: Report received from Suzanne OVALLES.Pt resting in bed awake,alert eating breakfast,noted no resp distress on 3 L NC,denies any c/o pain or discomfort,AFIB on the monitor,López cath draining yellow urine,IV site to RAC intact ,skin warm and dry ,SR up x2 HOB elevated bed lock in lowest position,will continue with plans of care.
[2018-09-19 08:00] VITALS: BP 134/64
--- NOTE | 2018-09-19 08:00 | Pulmonology Progress Note ---
Assessment/Plan Assessment/Plan ASSESSMENT Acute hypercapnic respiratory failure Acute diastolic CHF COPD with exacerbation Atelectasis with near complete opacification left hemithorax Acute encephalopathy 2 to hypercapnia Atrial fibrillation, permanent HTN HypoNa E/lyte imbalances ( hypo K, hypo Mg) Microcytic anemia Seizure disorder Hx of ETOH abuse Pacemaker Cerebral vascular disease Paranoid schizophrenia PLAN OF CARE tele off BiPAP , use prn Diamox pulmonary toilet CXR 09/18 worse with near complete opacification left lung/ near lung collapse, probably due to atelectasis doubt PNA given no cough, , no fevers, no leukocytosis start CPT with HHN, , elevate left side of the chest fup with CXR in am taper steroids venous Duplex BLE- no acute DVT monitor volumes, cardiorenal parameters , spot diuresis ECHO with pEF continue Eliquis, rate controlled lipid panel stable cardio follows monitor BP optimize Rx as needed Hypo Na w/up noted, nephro follows s/p 3% NaCl ; Na corrected replace lytes as needed BCX prel negative monitor HH with goal to keep Hgb above 7, s/p Venofer x1 anemia w/up c/w anemia of iron deficiency check stool OB, CEA continue Folate and Thiamine GI prophylaxis seizure precautions bowel regimen DNR/DNI status case discussed and evaluated by supervising physician Subjective Allergies: Coded Allergies: PIPERACILLIN (Unverified Allergy, Unknown, 05/21/18) tolerates cephalosporins TAZOBACTAM (Unverified Allergy, Unknown, 03/10/18) Subjective weaned to o2 via NC, some SOB, pulse ox stable no chest pain, Objective Last 24 Hour Vital Signs Date Time Temp Pulse Resp B/P (MAP) Pulse Ox O2 Delivery O2 Flow Rate FiO2 09/19/18 04:00 71 09/19/18 04:00 97.3 89 18 129/66 (87) 96 09/19/18 04:00 3.0 09/19/18 00:24 73 21 95 Facial 40 09/19/18 00:00 97.7 77 20 131/62 (85) 95 09/19/18 00:00 75 09/19/18 00:00 40 09/18/18 23:28 76 23 95 Facial 40 09/18/18 22:56 Nasal Cannula 3.0 32 09/18/18 22:54 96 Nasal Cannula 3.0 32 09/18/18 22:53 82 20 Nasal Cannula 2.0 28 09/18/18 21:27 98.6 84 20 137/64 (88) 94 09/18/18 20:00 91 09/18/18 20:00 Bi-pap 09/18/18 20:00 98.6 94 16 137/64 (88) 93 09/18/18 20:00 3.0 09/18/18 17:51 98.9 84 20 140/61 (87) 98 09/18/18 16:00 98.4 83 19 123/53 (76) 98 09/18/18 16:00 82 09/18/18 16:00 Bi-pap 09/18/18 16:00 40 09/18/18 12:00 96.4 80 20 129/58 (81) 95 09/18/18 12:00 Bi-pap 09/18/18 12:00 40 09/18/18 11:36 83 09/18/18 10:30 76 16 97 09/18/18 09:09 72 16 96 09/18/18 09:00 40 09/18/18 08:00 Bi-pap 09/18/18 08:00 97.3 89 21 112/56 (74) 97 Intake and Output 09/18/18 09/19/18 19:00 07:00 Intake Total 1162 ml 236 ml Output Total 600 ml 600 ml Balance 562 ml -364 ml Intake Oral 550 ml 236 ml IV Total 612 ml Output Urine Total 600 ml 600 ml General Appearance: no acute distress, other - awake, alert, confused female HEENT: normocephalic, atraumatic, anicteric, mucous membranes moist Respiratory/Chest: no respiratory distress, no accessory muscle use, decreased breath sounds, other - O2 via NC , pacemaker Cardiovascular: no JVD, irregularly irregular - A fib on tele , occas V paced Abdomen: normal bowel sounds, soft, non tender - obese Extremities: pedal pulses normal, other - trace edema BLE Neurologic/Psychiatric: abnormal gait - w/chair bound , alert, responsive Musculoskeletal: atrophy - BLE Microbiology Date/Time Source Procedure Growth Status 09/16/18 22:35 Blood Blood Culture - Preliminary NO GROWTH AFTER 48 HOURS Resulted 09/16/18 22:30 Blood Blood Culture - Preliminary NO GROWTH AFTER 48 HOURS Resulted Laboratory Tests 09/19/18 06:50: White Blood Count 4.3L, Red Blood Count 3.86L, Hemoglobin 9.9L, Hematocrit 32.0L , Mean Corpuscular Volume 83, Mean Corpuscular Hemoglobin 25.7L, Mean Corpuscular Hemoglobin Concent 31.0L, Red Cell Distribution Width 18.6H, Platelet Count 187, Mean Platelet Volume 7.0, Neutrophils (%) (Auto) 75.2H, Lymphocytes (%) (Auto) 14.6L, Monocytes (%) (Auto) 9.2, Eosinophils (%) (Auto) 0.5, Basophils (%) (Auto) 0.6, Sodium Level 137, Potassium Level 4.1, Chloride Level 98, Carbon Dioxide Level 38H, Anion Gap 1L, Blood Urea Nitrogen 9, Creatinine 0.5L, Estimat Glomerular Filtration Rate , Glucose Level 107H, Uric Acid 5.5, Calcium Level 8.9, Phosphorus Level 3.9, Magnesium Level 2.1, Total Bilirubin 0.2, Aspartate Amino Transf (AST/SGOT) 16, Alanine Aminotransferase ( ALT/SGPT) 18, Alkaline Phosphatase 54, Troponin I 0.007, Pro-B-Type Natriuretic Peptide 6067H, Total Protein 6.7, Albumin 2.6L, Globulin 4.1, Albumin/Globulin Ratio 0.6L 09/19/18 07:27: Arterial Blood pH 7.305L, Arterial Blood Partial Pressure CO2 71.2*H, Arterial Blood Partial Pressure O2 63.3L, Arterial Blood HCO3 34.6H, Arterial Blood Oxygen Saturation 91.5L, Arterial Blood Base Excess 6.5H, Ian Test Positive Current Medications Medications (Trade) Dose Ordered Sig/Ibrahima Route PRN Reason Start Time Stop Time Status Last Admin Dose Admin Acetaminophen (Tylenol) 650 mg Q4H PRN ORAL Mild Pain (Pain Scale 1-3) 09/18/18 18:00 10/17/18 17:59 Acetaminophen/ Codeine Phosphate (Tylenol #3) 1 tab Q4H PRN ORAL Severe Pain (Pain Scale 7-10) 09/18/18 18:00 09/24/18 17:59 Acetaminophen/ Hydrocodone Bitart ([place] 5/325) 1 tab Q4H PRN ORAL moderate pain 09/18/18 18:00 09/24/18 17:59 Acetazolamide (Diamox 500mg Inj) 250 mg EVERY 8 HOURS IVP 09/18/18 22:00 10/17/18 20:59 09/19/18 06:49 Albuterol/ Ipratropium (Albuterol/ Ipratropium) 3 ml Q4H PRN HHN Shortness of breath 09/18/18 18:00 09/22/18 17:59 Apixaban (Eliquis) 5 mg BID ORAL 09/19/18 09:00 10/19/18 08:59 Dextrose (Dextrose 50%) 25 ml Q30M PRN IV Hypoglycemia 09/18/18 18:00 10/17/18 06:59 Dextrose (Dextrose 50%) 50 ml Q30M PRN IV Hypoglycemia 09/18/18 18:00 10/17/18 06:59 Docusate Sodium (Colace) 100 mg TID ORAL 09/19/18 09:00 10/19/18 08:59 Folic Acid (Folate) 5 mg DAILY ORAL 09/19/18 09:00 10/18/18 09:59 Methylprednisolone Sodium Succinate (Solu-MEDROL) 40 mg Q8H IVP 09/19/18 02:00 09/19/18 10:01 Ondansetron HCl (Zofran) 4 mg Q6H PRN IVP Nausea & Vomiting 09/18/18 18:00 10/17/18 17:59 Pantoprazole (Protonix) 40 mg Q12HR ORAL 09/18/18 21:00 10/18/18 20:59 09/18/18 21:21 Polyethylene Glycol (Miralax) 17 gm DAILYPRN PRN ORAL Constipation 09/18/18 18:00 10/18/18 17:59 Potassium Chloride (K-Dur) 40 meq DAILY ORAL 09/19/18 09:00 10/17/18 08:59 Risperidone (RisperDAL) 1 mg BEDTIME ORAL 09/18/18 21:00 10/17/18 20:59 09/18/18 21:20 Temazepam (Restoril) 15 mg HSPRN PRN ORAL Insomnia 09/18/18 18:00 09/25/18 17:59 09/18/18 21:21 Thiamine HCl 100 mg/Dextrose 56 ml @ 112 mls/hr DAILY IVPB 09/19/18 09:00 10/18/18 10:59 Jazzy Campuzano [employer] Sep 19, 2018 08:00
[2018-09-19] MEDS ORDERED: Thiamine HCl 100 MG in D5W 55 ML IVPB SCH (09:00)
[2018-09-19] MEDS: Docusate 100mg/10ml Liq ORAL SCH ×3 (09:16→17:14)
[2018-09-19] MEDS: Eliquis 2.5mg tablet ORAL SCH ×2 (09:21→17:14)
--- NOTE | 2018-09-19 09:37 | Diagnostic Imaging Report ---
EXAM: XR Chest, 1 View CLINICAL HISTORY: DYSPNEA TECHNIQUE: Frontal view of the chest. COMPARISON: Chest x-ray, 09/18/18 712 FINDINGS: Lungs: There is now completely opacification of the left hemithorax. Mild interstitial prominence of the right lung. Pleural space: No pneumothorax. Heart: Mitral annular calcification. Cardiomegaly. Mediastinum: Unremarkable. Bones/joints: Unremarkable. Vasculature: Aortic knob calcification. IMPRESSION: There is now completely opacification of the left hemithorax. This may be due to worsening pleural effusion and/or atelectasis or collapse of the left lung. <MYCVCSECTION> Critical Value Communications 09/19/18 09:40 Call Nurse Charge Nurse Marcos in Telemetry on 09/19 09:39 (- 07:00)
--- NOTE | 2018-09-19 10:27 | General Progress Note ---
Assessment/Plan Problem List: (1) COPD (chronic obstructive pulmonary disease) ICD Codes: J44.9 - Chronic obstructive pulmonary disease, unspecified SNOMED: 36723909 Qualifiers: Qualified Codes: J44.9 - Chronic obstructive pulmonary disease, unspecified (2) Hyponatremia ICD Codes: E87.1 - Hyponatremia SNOMED: 53961385 (3) HTN (hypertension) ICD Codes: I10 - Hypertension SNOMED: 21770794 Assessment: Na is corrected no evidence of adrenal insufficiency or hypothyroidism continue current management Subjective ROS Limited/Unobtainable: Yes Allergies: Coded Allergies: PIPERACILLIN (Unverified Allergy, Unknown, 05/21/18) tolerates cephalosporins TAZOBACTAM (Unverified Allergy, Unknown, 03/10/18) Subjective pleasant lady admitted from SNF with COPD exacerbation and hyponatremia Na corrected - managed by Dr Huber thyroid function is normal am cortisol is normal Objective Last 24 Hour Vital Signs Date Time Temp Pulse Resp B/P (MAP) Pulse Ox O2 Delivery O2 Flow Rate FiO2 09/19/18 07:27 Nasal Cannula 2.0 28 09/19/18 07:27 96 Nasal Cannula 2.0 28 09/19/18 07:27 96 17 Nasal Cannula 2.0 28 09/19/18 04:00 71 09/19/18 04:00 97.3 89 18 129/66 (87) 96 09/19/18 04:00 3.0 09/19/18 00:24 73 21 95 Facial 40 09/19/18 00:00 97.7 77 20 131/62 (85) 95 09/19/18 00:00 75 09/19/18 00:00 40 09/18/18 23:28 76 23 95 Facial 40 09/18/18 22:56 Nasal Cannula 3.0 32 09/18/18 22:54 96 Nasal Cannula 3.0 32 09/18/18 22:53 82 20 Nasal Cannula 2.0 28 09/18/18 21:27 98.6 84 20 137/64 (88) 94 09/18/18 20:00 91 09/18/18 20:00 Bi-pap 09/18/18 20:00 98.6 94 16 137/64 (88) 93 09/18/18 20:00 3.0 09/18/18 17:51 98.9 84 20 140/61 (87) 98 09/18/18 16:00 98.4 83 19 123/53 (76) 98 09/18/18 16:00 82 09/18/18 16:00 Bi-pap 09/18/18 16:00 40 09/18/18 12:00 96.4 80 20 129/58 (81) 95 09/18/18 12:00 Bi-pap 09/18/18 12:00 40 09/18/18 11:36 83 09/18/18 10:30 76 16 97 Intake and Output 09/18/18 09/19/18 19:00 07:00 Intake Total 1162 ml 236 ml Output Total 600 ml 600 ml Balance 562 ml -364 ml Intake Oral 550 ml 236 ml IV Total 612 ml Output Urine Total 600 ml 600 ml Laboratory Tests 09/19/18 06:50: White Blood Count 4.3L, Red Blood Count 3.86L, Hemoglobin 9.9L, Hematocrit 32.0L , Mean Corpuscular Volume 83, Mean Corpuscular Hemoglobin 25.7L, Mean Corpuscular Hemoglobin Concent 31.0L, Red Cell Distribution Width 18.6H, Platelet Count 187, Mean Platelet Volume 7.0, Neutrophils (%) (Auto) 75.2H, Lymphocytes (%) (Auto) 14.6L, Monocytes (%) (Auto) 9.2, Eosinophils (%) (Auto) 0.5, Basophils (%) (Auto) 0.6, Sodium Level 137, Potassium Level 4.1, Chloride Level 98, Carbon Dioxide Level 38H, Anion Gap 1L, Blood Urea Nitrogen 9, Creatinine 0.5L, Estimat Glomerular Filtration Rate , Glucose Level 107H, Uric Acid 5.5, Calcium Level 8.9, Phosphorus Level 3.9, Magnesium Level 2.1, Total Bilirubin 0.2, Aspartate Amino Transf (AST/SGOT) 16, Alanine Aminotransferase ( ALT/SGPT) 18, Alkaline Phosphatase 54, Troponin I 0.007, Pro-B-Type Natriuretic Peptide 6067H, Total Protein 6.7, Albumin 2.6L, Globulin 4.1, Albumin/Globulin Ratio 0.6L 09/19/18 07:27: Arterial Blood pH 7.305L, Arterial Blood Partial Pressure CO2 71.2*H, Arterial Blood Partial Pressure O2 63.3L, Arterial Blood HCO3 34.6H, Arterial Blood Oxygen Saturation 91.5L, Arterial Blood Base Excess 6.5H, Ian Test Positive Height (Feet): 5 Weight (Pounds): 180 General Appearance: no apparent distress Neck: normal alignment Cardiovascular: normal rate Respiratory/Chest: crackles/rales Abdomen: normal bowel sounds Pelvis: normal external exam Edema: no edema noted Arm (L), no edema noted Arm (R), no edema noted Leg (L), no edema noted Leg (R), no edema noted Pedal (L), no edema noted Pedal (R), no edema noted Generalized Objective Current Medications Medications (Trade) Dose Ordered Sig/Ibrahima Route PRN Reason Start Time Stop Time Status Last Admin Dose Admin Acetaminophen (Tylenol) 650 mg Q4H PRN ORAL Mild Pain (Pain Scale 1-3) 09/18/18 18:00 10/17/18 17:59 Acetaminophen/ Codeine Phosphate (Tylenol #3) 1 tab Q4H PRN ORAL Severe Pain (Pain Scale 7-10) 09/18/18 18:00 09/24/18 17:59 Acetaminophen/ Hydrocodone Bitart ([place] 5/325) 1 tab Q4H PRN ORAL moderate pain 09/18/18 18:00 09/24/18 17:59 Acetazolamide (Diamox 500mg Inj) 250 mg EVERY 8 HOURS IVP 09/18/18 22:00 10/17/18 20:59 09/19/18 06:49 Albuterol/ Ipratropium (Albuterol/ Ipratropium) 3 ml Q4H PRN HHN Shortness of breath 09/18/18 18:00 09/22/18 17:59 Apixaban (Eliquis) 5 mg BID ORAL 09/19/18 09:00 10/19/18 08:59 09/19/18 09:21 Dextrose (Dextrose 50%) 25 ml Q30M PRN IV Hypoglycemia 09/18/18 18:00 10/17/18 06:59 Dextrose (Dextrose 50%) 50 ml Q30M PRN IV Hypoglycemia 09/18/18 18:00 10/17/18 06:59 Docusate Sodium (Colace) 100 mg TID ORAL 09/19/18 09:00 10/19/18 08:59 09/19/18 09:16 Folic Acid (Folate) 5 mg DAILY ORAL 09/19/18 09:00 10/18/18 09:59 09/19/18 09:17 Methylprednisolone Sodium Succinate (Solu-MEDROL) 40 mg EVERY 12 HOURS IVP 09/19/18 22:00 10/19/18 21:59 UNV Ondansetron HCl (Zofran) 4 mg Q6H PRN IVP Nausea & Vomiting 09/18/18 18:00 10/17/18 17:59 Pantoprazole (Protonix) 40 mg Q12HR ORAL 09/18/18 21:00 10/18/18 20:59 09/19/18 09:16 Polyethylene Glycol (Miralax) 17 gm DAILYPRN PRN ORAL Constipation 09/18/18 18:00 10/18/18 17:59 Potassium Chloride (K-Dur) 40 meq DAILY ORAL 09/19/18 09:00 10/17/18 08:59 09/19/18 09:16 Risperidone (RisperDAL) 1 mg BEDTIME ORAL 09/18/18 21:00 10/17/18 20:59 09/18/18 21:20 Temazepam (Restoril) 15 mg HSPRN PRN ORAL Insomnia 09/18/18 18:00 09/25/18 17:59 09/18/18 21:21 Thiamine HCl 100 mg/Dextrose 56 ml @ 112 mls/hr DAILY IVPB 09/19/18 09:00 10/18/18 10:59 09/19/18 09:22 Daniel Little MD Sep 19, 2018 10:27
[2018-09-19 12:00] VITALS: BP 135/57
--- NOTE | 2018-09-19 12:00 | NUR ---
NURSE NOTES: Pt stable no resp distress presented turned and repositioned.
--- NOTE | 2018-09-19 13:59 | Cardiac Electrophysiology PN ---
Subjective Subjective [id number] Objective Last 24 Hour Vital Signs Date Time Temp Pulse Resp B/P (MAP) Pulse Ox O2 Delivery O2 Flow Rate FiO2 09/19/18 09:00 Nasal Cannula 3.0 09/19/18 08:00 98.2 98 21 134/64 (87) 91 09/19/18 08:00 87 09/19/18 07:27 Nasal Cannula 2.0 28 09/19/18 07:27 96 Nasal Cannula 2.0 28 09/19/18 07:27 96 17 Nasal Cannula 2.0 28 09/19/18 04:00 71 09/19/18 04:00 97.3 89 18 129/66 (87) 96 09/19/18 04:00 3.0 09/19/18 00:24 73 21 95 Facial 40 09/19/18 00:00 97.7 77 20 131/62 (85) 95 09/19/18 00:00 75 09/19/18 00:00 40 09/18/18 23:28 76 23 95 Facial 40 09/18/18 22:56 Nasal Cannula 3.0 32 09/18/18 22:54 96 Nasal Cannula 3.0 32 09/18/18 22:53 82 20 Nasal Cannula 2.0 28 09/18/18 21:27 98.6 84 20 137/64 (88) 94 09/18/18 20:00 91 09/18/18 20:00 Bi-pap 09/18/18 20:00 98.6 94 16 137/64 (88) 93 09/18/18 20:00 3.0 09/18/18 17:51 98.9 84 20 140/61 (87) 98 09/18/18 16:00 98.4 83 19 123/53 (76) 98 09/18/18 16:00 82 09/18/18 16:00 Bi-pap 09/18/18 16:00 40 Intake and Output 09/18/18 09/19/18 19:00 07:00 Intake Total 1162 ml 236 ml Output Total 600 ml 600 ml Balance 562 ml -364 ml Intake Oral 550 ml 236 ml IV Total 612 ml Output Urine Total 600 ml 600 ml Laboratory Tests Test 09/19/18 06:50 09/19/18 07:27 White Blood Count 4.3 K/UL (4.8-10.8) L Red Blood Count 3.86 M/UL (4.20-5.40) L Hemoglobin 9.9 G/DL (12.0-16.0) L Hematocrit 32.0 % (37.0-47.0) L Mean Corpuscular Volume 83 FL (80-99) Mean Corpuscular Hemoglobin 25.7 PG (27.0-31.0) L Mean Corpuscular Hemoglobin Concent 31.0 G/DL (32.0-36.0) L Red Cell Distribution Width 18.6 % (11.6-14.8) H Platelet Count 187 K/UL (150-450) Mean Platelet Volume 7.0 FL (6.5-10.1) Neutrophils (%) (Auto) 75.2 % (45.0-75.0) H Lymphocytes (%) (Auto) 14.6 % (20.0-45.0) L Monocytes (%) (Auto) 9.2 % (1.0-10.0) Eosinophils (%) (Auto) 0.5 % (0.0-3.0) Basophils (%) (Auto) 0.6 % (0.0-2.0) Sodium Level 137 MMOL/L (136-145) Potassium Level 4.1 MMOL/L (3.5-5.1) Chloride Level 98 MMOL/L (98-107) Carbon Dioxide Level 38 MMOL/L (21-32) H Anion Gap 1 mmol/L (5-15) L Blood Urea Nitrogen 9 mg/dL (7-18) Creatinine 0.5 MG/DL (0.55-1.30) L Estimat Glomerular Filtration Rate mL/min (>60) Glucose Level 107 MG/DL (74-106) H Uric Acid 5.5 MG/DL (2.6-7.2) Calcium Level 8.9 MG/DL (8.5-10.1) Phosphorus Level 3.9 MG/DL (2.5-4.9) Magnesium Level 2.1 MG/DL (1.8-2.4) Total Bilirubin 0.2 MG/DL (0.2-1.0) Aspartate Amino Transf (AST/SGOT) 16 U/L (15-37) Alanine Aminotransferase (ALT/SGPT) 18 U/L (12-78) Alkaline Phosphatase 54 U/L (46-116) Troponin I 0.007 ng/mL (0.000-0.056) Pro-B-Type Natriuretic Peptide 6067 pg/mL (0-125) H Total Protein 6.7 G/DL (6.4-8.2) Albumin 2.6 G/DL (3.4-5.0) L Globulin 4.1 g/dL Albumin/Globulin Ratio 0.6 (1.0-2.7) L Arterial Blood pH 7.305 (7.350-7.450) Arterial Blood Partial Pressure CO2 71.2 mmHg (35.0-45.0) *H Arterial Blood Partial Pressure O2 63.3 mmHg (75.0-100.0) L Arterial Blood HCO3 34.6 mmol/L (22.0-26.0) H Arterial Blood Oxygen Saturation 91.5 % (95-100) L Arterial Blood Base Excess 6.5 (-2-2) H Ian Test Positive Microbiology Date/Time Source Procedure Growth Status 09/16/18 22:35 Blood Blood Culture - Preliminary NO GROWTH AFTER 48 HOURS Resulted 09/16/18 22:30 Blood Blood Culture - Preliminary NO GROWTH AFTER 48 HOURS Resulted Yohan Milian MD Sep 19, 2018 13:59
--- NOTE | 2018-09-19 15:08 | Internal Med Progress Note ---
Subjective Date of Service: Sep 19, 2018 Physician Name Juan Dutta Attending Physician Yonathan Mendoza MD Current Medications Medications (Trade) Dose Ordered Sig/Ibrahima Route PRN Reason Start Time Stop Time Status Last Admin Dose Admin Acetaminophen (Tylenol) 650 mg Q4H PRN ORAL Mild Pain (Pain Scale 1-3) 09/18/18 18:00 10/17/18 17:59 Acetaminophen/ Codeine Phosphate (Tylenol #3) 1 tab Q4H PRN ORAL Severe Pain (Pain Scale 7-10) 09/18/18 18:00 09/24/18 17:59 Acetaminophen/ Hydrocodone Bitart ([place] 5/325) 1 tab Q4H PRN ORAL moderate pain 09/18/18 18:00 09/24/18 17:59 Acetazolamide (Diamox 500mg Inj) 250 mg EVERY 8 HOURS IVP 09/18/18 22:00 10/17/18 20:59 09/19/18 13:41 Albuterol/ Ipratropium (Albuterol/ Ipratropium) 3 ml Q4H PRN HHN Shortness of breath 09/18/18 18:00 09/22/18 17:59 Apixaban (Eliquis) 5 mg BID ORAL 09/19/18 09:00 10/19/18 08:59 09/19/18 09:21 Dextrose (Dextrose 50%) 25 ml Q30M PRN IV Hypoglycemia 09/18/18 18:00 10/17/18 06:59 Dextrose (Dextrose 50%) 50 ml Q30M PRN IV Hypoglycemia 09/18/18 18:00 10/17/18 06:59 Docusate Sodium (Colace) 100 mg TID ORAL 09/19/18 09:00 10/19/18 08:59 09/19/18 13:37 Folic Acid (Folate) 5 mg DAILY ORAL 09/19/18 09:00 10/18/18 09:59 09/19/18 09:17 Methylprednisolone Sodium Succinate (Solu-MEDROL) 40 mg EVERY 12 HOURS IVP 09/19/18 22:00 10/19/18 21:59 Ondansetron HCl (Zofran) 4 mg Q6H PRN IVP Nausea & Vomiting 09/18/18 18:00 10/17/18 17:59 Pantoprazole (Protonix) 40 mg Q12HR ORAL 09/18/18 21:00 10/18/18 20:59 09/19/18 09:16 Polyethylene Glycol (Miralax) 17 gm DAILYPRN PRN ORAL Constipation 09/18/18 18:00 10/18/18 17:59 Potassium Chloride (K-Dur) 40 meq DAILY ORAL 09/19/18 09:00 10/17/18 08:59 09/19/18 09:16 Risperidone (RisperDAL) 1 mg BEDTIME ORAL 09/18/18 21:00 10/17/18 20:59 09/18/18 21:20 Temazepam (Restoril) 15 mg HSPRN PRN ORAL Insomnia 09/18/18 18:00 09/25/18 17:59 09/18/18 21:21 Thiamine HCl 100 mg/Dextrose 56 ml @ 112 mls/hr DAILY IVPB 09/19/18 09:00 10/18/18 10:59 09/19/18 09:22 Allergies: Coded Allergies: PIPERACILLIN (Unverified Allergy, Unknown, 05/21/18) tolerates cephalosporins TAZOBACTAM (Unverified Allergy, Unknown, 03/10/18) ROS Limited/Unobtainable: No Constitutional: Reports: no symptoms HEENT: Reports: no symptoms Cardiovascular: Reports: no symptoms Respiratory: Reports: no symptoms Gastrointestinal/Abdominal: Reports: no symptoms Genitourinary: Reports: no symptoms Neurologic/Psychiatric: Reports: no symptoms Subjective 77 YO F admitted for respiratory distress. Now left pleural effusion. Cover for Int Vickey Mendoza Objective Last Vital Signs Date Time Temp Pulse Resp B/P (MAP) Pulse Ox O2 Delivery O2 Flow Rate FiO2 09/19/18 09:00 Nasal Cannula 3.0 09/19/18 08:00 98.2 98 21 134/64 (87) 91 09/19/18 07:27 28 Laboratory Tests Test 09/19/18 06:50 09/19/18 07:27 White Blood Count 4.3 K/UL (4.8-10.8) L Red Blood Count 3.86 M/UL (4.20-5.40) L Hemoglobin 9.9 G/DL (12.0-16.0) L Hematocrit 32.0 % (37.0-47.0) L Mean Corpuscular Volume 83 FL (80-99) Mean Corpuscular Hemoglobin 25.7 PG (27.0-31.0) L Mean Corpuscular Hemoglobin Concent 31.0 G/DL (32.0-36.0) L Red Cell Distribution Width 18.6 % (11.6-14.8) H Platelet Count 187 K/UL (150-450) Mean Platelet Volume 7.0 FL (6.5-10.1) Neutrophils (%) (Auto) 75.2 % (45.0-75.0) H Lymphocytes (%) (Auto) 14.6 % (20.0-45.0) L Monocytes (%) (Auto) 9.2 % (1.0-10.0) Eosinophils (%) (Auto) 0.5 % (0.0-3.0) Basophils (%) (Auto) 0.6 % (0.0-2.0) Sodium Level 137 MMOL/L (136-145) Potassium Level 4.1 MMOL/L (3.5-5.1) Chloride Level 98 MMOL/L (98-107) Carbon Dioxide Level 38 MMOL/L (21-32) H Anion Gap 1 mmol/L (5-15) L Blood Urea Nitrogen 9 mg/dL (7-18) Creatinine 0.5 MG/DL (0.55-1.30) L Estimat Glomerular Filtration Rate mL/min (>60) Glucose Level 107 MG/DL (74-106) H Uric Acid 5.5 MG/DL (2.6-7.2) Calcium Level 8.9 MG/DL (8.5-10.1) Phosphorus Level 3.9 MG/DL (2.5-4.9) Magnesium Level 2.1 MG/DL (1.8-2.4) Total Bilirubin 0.2 MG/DL (0.2-1.0) Aspartate Amino Transf (AST/SGOT) 16 U/L (15-37) Alanine Aminotransferase (ALT/SGPT) 18 U/L (12-78) Alkaline Phosphatase 54 U/L (46-116) Troponin I 0.007 ng/mL (0.000-0.056) Pro-B-Type Natriuretic Peptide 6067 pg/mL (0-125) H Total Protein 6.7 G/DL (6.4-8.2) Albumin 2.6 G/DL (3.4-5.0) L Globulin 4.1 g/dL Albumin/Globulin Ratio 0.6 (1.0-2.7) L Arterial Blood pH 7.305 (7.350-7.450) Arterial Blood Partial Pressure CO2 71.2 mmHg (35.0-45.0) *H Arterial Blood Partial Pressure O2 63.3 mmHg (75.0-100.0) L Arterial Blood HCO3 34.6 mmol/L (22.0-26.0) H Arterial Blood Oxygen Saturation 91.5 % (95-100) L Arterial Blood Base Excess 6.5 (-2-2) H Ian Test Positive Microbiology Date/Time Source Procedure Growth Status 09/16/18 22:35 Blood Blood Culture - Preliminary NO GROWTH AFTER 48 HOURS Resulted 09/16/18 22:30 Blood Blood Culture - Preliminary NO GROWTH AFTER 48 HOURS Resulted Intake and Output 09/18/18 09/19/18 19:00 07:00 Intake Total 1162 ml 236 ml Output Total 600 ml 600 ml Balance 562 ml -364 ml Intake Oral 550 ml 236 ml IV Total 612 ml Output Urine Total 600 ml 600 ml Objective PHYSICAL EXAMINATION: GENERAL: The patient is a well-developed and well-nourished white female, who is in moderate respiratory distress. HEENT: Eyes, pupils are equal and responsive to light and accommodation. Extraocular movements are intact. NECK: Supple without lymphadenopathy. CHEST: Few rales in bilateral bases, otherwise, Lungs are clear to auscultation bilaterally without wheezes CARDIOVASCULAR: Regular rhythm and rate. S1 and S2 normal without murmurs, rubs, or gallops. ABDOMEN: Soft, nontender, and nondistended. Positive bowel sounds. No evidence of hepatosplenomegaly. Currently, no rebound or guarding noted. EXTREMITIES: Negative for clubbing, cyanosis, or edema. RECTAL/GENITAL: Refused. NEUROLOGIC: Cranial nerves II through XII are grossly intact without focal deficits. Motor strength is 5/5 bilaterally. Deep tendon reflexes are 2+ plantar. Assessment/Plan Assessment/Plan ASSESSMENT: This is a 77-year-old white female with: 1. Shortness of breath. 2. Hypoxia. 3. Acute on chronic congestive heart failure. 4. Atrial flutter. 5. Hyponatremia. 6. Chronic obstructive pulmonary disease. 7. Coronary artery disease. 8. Hypertension. 9. Seizure disorder. 10. Paranoid schizophrenia. 11. Intraventricular pacemaker 12. left pleural effusion-await CT chest TREATMENT: 1. Shortness of breath/congestive heart failure. Cardiology consultation has been obtained with Dr. Milian. The patient is currently receiving intravenous Lasix. We will follow recommendation of Cardiology. BNP is elevated at over greater than 5000. An echocardiogram is pending. 2. Atrial flutter. Continue Eliquis as above. 3. Hyponatremia. The patient is currently receiving intravenous fluids. 4. Chronic obstructive pulmonary disease. Continue DuoNeb nebulized as above. The patient was initially placed on BiPAP in the emergency room. A Pulmonary consultation has been obtained with Dr. Mendel Sierra. 5. Hypertension. Continue Lasix as above. 6. Seizure disorder. The patient is currently off antiseizure medication. 7. Paranoid schizophrenia. Continue Risperdal as above. 8. CT chest pending Juan Dutta MD Sep 19, 2018 15:08
[2018-09-19] MEDS ORDERED: Isovue-300 100ml vial INJ PRN (15:15)
[2018-09-19 16:00] VITALS: BP 136/64
--- NOTE | 2018-09-19 16:22 | NUR ---
PT Note PT jazzmine completed, treatment initiated. Patient was able to roll with max A. Patient was unable to sit at the EOB; c/o fatigue. Patient can benefit from PT services to increase her muscle strength and functional mobility to PLF. Addendum: 09/19/18 at 1622 by KAMALA BENITEZ PT Amended: Links added.
--- NOTE | 2018-09-19 18:41 | Nephrology Progress Note ---
Assessment/Plan Problem List: (1) Respiratory failure, acute (2) Hyponatremia (3) Seizure disorder (4) Acute diastolic CHF (congestive heart failure) (5) COPD (chronic obstructive pulmonary disease) (6) Pacemaker Assessment HypoNatremia ? Etiology: depletional / Diuretics / SIADH ... Need more data to pin point etiology Acute respiratory failure on BIPAP- COPD Encephalopathy due to high CO2 Pacemaker UTI Low MCV Anemia Hypoalbuminemia EjFx 55% last admission h/o Atfib Plan Plan; BIPAP as needed- Diamox adjust dose López 3% saline one tinme given stop lasix IV iron monitor lytes Anemia clinton solumedrol to po prednisone per orders Subjective ROS Limited/Unobtainable: No Constitutional: Reports: malaise Objective Objective Last 24 Hour Vital Signs Date Time Temp Pulse Resp B/P (MAP) Pulse Ox O2 Delivery O2 Flow Rate FiO2 09/19/18 16:00 98.8 91 20 136/64 (88) 96 09/19/18 12:00 89 09/19/18 12:00 98.2 91 21 135/57 (83) 94 09/19/18 09:00 Nasal Cannula 3.0 09/19/18 08:00 98.2 98 21 134/64 (87) 91 09/19/18 08:00 87 09/19/18 07:27 Nasal Cannula 2.0 28 09/19/18 07:27 96 Nasal Cannula 2.0 28 09/19/18 07:27 96 17 Nasal Cannula 2.0 28 09/19/18 04:00 71 09/19/18 04:00 97.3 89 18 129/66 (87) 96 09/19/18 04:00 3.0 09/19/18 00:24 73 21 95 Facial 40 09/19/18 00:00 97.7 77 20 131/62 (85) 95 09/19/18 00:00 75 09/19/18 00:00 40 09/18/18 23:28 76 23 95 Facial 40 09/18/18 22:56 Nasal Cannula 3.0 32 09/18/18 22:54 96 Nasal Cannula 3.0 32 09/18/18 22:53 82 20 Nasal Cannula 2.0 28 09/18/18 21:27 98.6 84 20 137/64 (88) 94 09/18/18 20:00 91 09/18/18 20:00 Bi-pap 09/18/18 20:00 98.6 94 16 137/64 (88) 93 09/18/18 20:00 3.0 Intake and Output 09/18/18 09/19/18 19:00 07:00 Intake Total 1162 ml 236 ml Output Total 600 ml 600 ml Balance 562 ml -364 ml Intake Oral 550 ml 236 ml IV Total 612 ml Output Urine Total 600 ml 600 ml Laboratory Tests 09/19/18 06:50: White Blood Count 4.3L, Red Blood Count 3.86L, Hemoglobin 9.9L, Hematocrit 32.0L , Mean Corpuscular Volume 83, Mean Corpuscular Hemoglobin 25.7L, Mean Corpuscular Hemoglobin Concent 31.0L, Red Cell Distribution Width 18.6H, Platelet Count 187, Mean Platelet Volume 7.0, Neutrophils (%) (Auto) 75.2H, Lymphocytes (%) (Auto) 14.6L, Monocytes (%) (Auto) 9.2, Eosinophils (%) (Auto) 0.5, Basophils (%) (Auto) 0.6, Sodium Level 137, Potassium Level 4.1, Chloride Level 98, Carbon Dioxide Level 38H, Anion Gap 1L, Blood Urea Nitrogen 9, Creatinine 0.5L, Estimat Glomerular Filtration Rate , Glucose Level 107H, Uric Acid 5.5, Calcium Level 8.9, Phosphorus Level 3.9, Magnesium Level 2.1, Total Bilirubin 0.2, Aspartate Amino Transf (AST/SGOT) 16, Alanine Aminotransferase ( ALT/SGPT) 18, Alkaline Phosphatase 54, Troponin I 0.007, Pro-B-Type Natriuretic Peptide 6067H, Total Protein 6.7, Albumin 2.6L, Globulin 4.1, Albumin/Globulin Ratio 0.6L 09/19/18 07:27: Arterial Blood pH 7.305L, Arterial Blood Partial Pressure CO2 71.2*H, Arterial Blood Partial Pressure O2 63.3L, Arterial Blood HCO3 34.6H, Arterial Blood Oxygen Saturation 91.5L, Arterial Blood Base Excess 6.5H, Ian Test Positive Height (Feet): 5 Weight (Pounds): 180 General Appearance: no apparent distress Cardiovascular: tachycardia Respiratory/Chest: decreased breath sounds Abdomen: soft Objective no change Danilo Huber MD Sep 19, 2018 18:41
--- NOTE | 2018-09-19 19:20 | NUR ---
HAND-OFF: Report given to Suzanne OVALLES,no change in pt's status remains stable.
--- NOTE | 2018-09-19 19:45 | Consultation ---
DATE OF CONSULTATION: 09/19/2018 CARDIAC ELECTROPHYSIOLOGY CONSULTATION CONSULTING PHYSICIAN: Yohan Milian M.D. REFERRING PHYSICIAN: Yonathan Mendoza M.D. REASON FOR CONSULTATION: Evaluation of the patient's pacemaker in the patient with paroxysmal atrial fibrillation. HISTORY OF PRESENT ILLNESS: The patient is a very pleasant 77-year-old lady that I am quite familiar from multiple previous hospitalizations. The patient has history of hypertension, chronic atrial fibrillation, as well as history of lead less [employer] permanent pacemaker placement at [facility], who also has chronic obstructive pulmonary disease and presents to the emergency room from convalescent facility for shortness of breath on 09/16/2018. The patient received multiple albuterol treatments, but did not improve. The patient was admitted and cardiac electrophysiology consultation was requested for further evaluation and management. At the time of my evaluation, the patient denies any chest pain and shortness of breath has improved. REVIEW OF SYSTEMS: Thoroughly performed and was negative other than what was mentioned in the history of present illness. PAST MEDICAL HISTORY: 1. Chronic atrial flutter fibrillation. 2. Status post Medtronic leadless permanent pacemaker implantation in 2016 at [facility]. 3. Diastolic congestive heart failure. 4. History of respiratory failure. 5. Chronic obstructive pulmonary disease. 6. Encephalopathy. 7. Schizophrenia. 8. Coronary artery disease. 9. History of pleural effusion. 10. History of depression. ALLERGIES: She is allergic to tazobactam and piperacillin. FAMILY HISTORY: Noncontributory. SOCIAL HISTORY: She is a senior care resident. Does not smoke or drink alcohol, but used to do that in the past. PHYSICAL EXAMINATION: VITAL SIGNS: Show blood pressure is 134/64, pulse 98, respirations 18, and temperature 98.2. HEAD AND NECK: Shows mild JVD. LUNGS: Coarse rhonchi bilaterally. CARDIOVASCULAR: Shows irregular S1 and S2 with no gallop. ABDOMEN: Soft. EXTREMITIES: No pitting edema. DIAGNOSTIC DATA: Her EKG showed atrial fibrillation at the rate of 95. LABORATORY AND DIAGNOSTIC STUDIES: Laboratory show white count of 4.2, hemoglobin of 10, hematocrit of 32, and platelet count is 187,000. Sodium is 137, potassium 4.1, BUN of 9, creatinine 0.5, and glucose of 107. BNP is 6067. ASSESSMENT AND PLAN: 1. Status post leadless Medtronic pacemaker placement in 2015. The patient's heart rate is currently controlled and has intermittent ventricular pacing. 2. Chronic atrial fibrillation. The rate is currently controlled. Off any antiarrhythmics. The patient is on anticoagulation with Eliquis 5 mg b.i.d. 3. Severe COPD. On Solu-Medrol. 4. Diastolic congestive heart failure. Further evaluation by Dr. Reno. 5. Diabetes. Followed by Dr. Little. Thank you very much, Dr. Mendoza, for allowing me to participate in the care of this patient. Please do not hesitate to contact me for any questions regarding my evaluation. Yohan Milian M.D. DR: JAMSHID JOB#: [id number] CC:
--- NOTE | 2018-09-19 19:50 | NUR ---
NURSE NOTES: Received pt from CHARLETTE Nugent. Pt awake, alert, and screaming help for water. Bed in lowest position. Call light within reach. Will continue to monitor.
[2018-09-19 20:00] VITALS: BP 158/72
[2018-09-19] MEDS ORDERED: Solu-MEDROL 40mg Inj IVP SCH ×2 (22:00)
[2018-09-20 04:00] VITALS: BP 126/58
--- NOTE | 2018-09-20 07:44 | NUR ---
HAND-OFF: Report given to CHARLETTE Mujica. Pt stable.
--- NOTE | 2018-09-20 07:55 | NUR ---
NURSE NOTES: Pt received from CHARLETTE Palacios alert and oriented x4 with no acute s/s of distress. IV site asymptomatic and patent. Bed in lowest position, call light and belongings within reach.
[2018-09-20 08:00] VITALS: BP 145/70
[2018-09-20 08:26] LABS: HEMATOCRIT 31.5 % (37.0-47.0); HEMOGLOBIN 9.7 G/DL (12.0-16.0); MEAN CORPUSCULAR VOLUME 84 FL (80-99); PLATELET COUNT 223 K/UL (150-450); RED BLOOD COUNT 3.77 M/UL (4.20-5.40); RED CELL DISTRIBUTION WIDTH 18.9 % (11.6-14.8); WHITE BLOOD COUNT 11.5 K/UL (4.8-10.8)
[2018-09-20 08:47] LABS: ANION GAP 5 mmol/L (5-15); BLOOD UREA NITROGEN 9 mg/dL (7-18); CALCIUM 8.8 MG/DL (8.5-10.1); CARBON DIOXIDE 34 MMOL/L (21-32); CHLORIDE 96 MMOL/L (98-107); CREATININE 0.5 MG/DL (0.55-1.30); POTASSIUM 4.4 MMOL/L (3.5-5.1); SODIUM 135 MMOL/L (136-145)
--- NOTE | 2018-09-20 08:48 | Diagnostic Imaging Report ---
EXAM: XR Chest, 1 View CLINICAL HISTORY: SOB TECHNIQUE: Frontal view of the chest. COMPARISON: Chest x-ray, 09/19/18 814 FINDINGS: Lungs: There is now aeration in the left upper lobe. Continued large opacity of the left hemithorax may be pleural effusion and/or partial lung collapse. Pleural space: See above. No pneumothorax. Heart: Mitral valve calcification. Cardiomegaly. Mediastinum: Unremarkable. Bones/joints: Unremarkable. Vasculature: Aortic knob calcification. IMPRESSION: There is now aeration in the left upper lobe. Continued large opacity of the left hemithorax may be pleural effusion and/or partial lung collapse.
[2018-09-20] MEDS: Docusate 100mg/10ml Liq ORAL SCH ×3 (08:59→18:07)
[2018-09-20] MEDS: Thiamine 100mg tab ORAL SCH (08:59)
[2018-09-20] MEDS: Eliquis 2.5mg tablet ORAL SCH ×2 (08:59→18:00)
[2018-09-20 09:17] LABS: ALANINE AMINOTRANSFERASE 19 U/L (12-78); ALBUMIN 2.6 G/DL (3.4-5.0); ALKALINE PHOSPHATASE 59 U/L (46-116); ASPARTATE AMINO TRANSFERASE 15 U/L (15-37); BILIRUBIN,DIRECT < 0.1 MG/DL (0.0-0.3); BILIRUBIN,TOTAL 0.2 MG/DL (0.2-1.0); PHOSPHORUS 4.5 MG/DL (2.5-4.9)
--- NOTE | 2018-09-20 09:20 | General Progress Note ---
Assessment/Plan Problem List: (1) COPD (chronic obstructive pulmonary disease) ICD Codes: J44.9 - Chronic obstructive pulmonary disease, unspecified SNOMED: 96933677 Qualifiers: Qualified Codes: J44.9 - Chronic obstructive pulmonary disease, unspecified (2) Hyponatremia ICD Codes: E87.1 - Hyponatremia SNOMED: 21770739 (3) HTN (hypertension) ICD Codes: I10 - Hypertension SNOMED: 90990367 Assessment: Na only mildly low no evidence of adrenal insufficiency or hypothyroidism continue current management Subjective Allergies: Coded Allergies: PIPERACILLIN (Unverified Allergy, Unknown, 05/21/18) tolerates cephalosporins TAZOBACTAM (Unverified Allergy, Unknown, 03/10/18) All Systems: reviewed and negative except above Subjective events noted Na is only slightly low overall improved Objective Last 24 Hour Vital Signs Date Time Temp Pulse Resp B/P (MAP) Pulse Ox O2 Delivery O2 Flow Rate FiO2 09/20/18 09:09 Nasal Cannula 2.0 28 09/20/18 09:08 95 Nasal Cannula 2.0 28 09/20/18 09:07 95 18 Nasal Cannula 2.0 28 09/20/18 04:00 97.5 97 20 126/58 (80) 95 09/20/18 04:00 98 09/20/18 00:00 92 09/19/18 21:00 Bi-pap 09/19/18 20:00 98.7 92 20 158/72 (100) 94 09/19/18 19:50 94 18 Nasal Cannula 2.0 28 09/19/18 19:50 Nasal Cannula 2.0 28 09/19/18 19:50 94 Nasal Cannula 2.0 28 09/19/18 16:00 98.8 91 20 136/64 (88) 96 09/19/18 16:00 88 09/19/18 12:00 89 09/19/18 12:00 98.2 91 21 135/57 (83) 94 Intake and Output 09/19/18 09/20/18 18:59 06:59 Intake Total 1100 ml Output Total 1000 ml 1200 ml Balance 100 ml -1200 ml Intake Oral 1100 ml Output Urine Total 1000 ml 1200 ml # Bowel Movements 1 1 Laboratory Tests 09/20/18 04:00: Arterial Blood pH 7.172*L, Arterial Blood Partial Pressure CO2 78.1*H, Arterial Blood Partial Pressure O2 101.3H, Arterial Blood HCO3 28.0H, Arterial Blood Oxygen Saturation 95.9, Arterial Blood Base Excess -1.6, Ian Test Positive 09/20/18 05:15: Stool Occult Blood [Pending] 09/20/18 07:00: White Blood Count 11.5#H, Red Blood Count 3.77L, Hemoglobin 9.7L, Hematocrit 31.5L, Mean Corpuscular Volume 84, Mean Corpuscular Hemoglobin 25.7L, Mean Corpuscular Hemoglobin Concent 30.7L, Red Cell Distribution Width 18.9H, Platelet Count 223, Mean Platelet Volume 6.8, Neutrophils (%) (Auto) , Lymphocytes (%) (Auto) , Monocytes (%) (Auto) , Eosinophils (%) (Auto) , Basophils (%) (Auto) , Differential Total Cells Counted 100, Neutrophils % ( Manual) 77H, Lymphocytes % (Manual) 13L, Monocytes % (Manual) 5, Eosinophils % ( Manual) 0, Basophils % (Manual) 0, Band Neutrophils 5, Platelet Estimate Adequate, Platelet Morphology Normal, Polychromasia 1+, Anisocytosis 2+, Sodium Level 135L, Potassium Level 4.4, Chloride Level 96L, Carbon Dioxide Level 34H, Anion Gap 5, Blood Urea Nitrogen 9, Creatinine 0.5L, Estimat Glomerular Filtration Rate , Glucose Level 129H, Uric Acid [Pending], Calcium Level 8.8, Phosphorus Level [Pending], Magnesium Level [Pending], Total Bilirubin [Pending] , Direct Bilirubin [Pending], Aspartate Amino Transf (AST/SGOT) [Pending], Alanine Aminotransferase (ALT/SGPT) [Pending], Alkaline Phosphatase [Pending], Total Protein [Pending], Albumin [Pending], Carcinoembryonic Antigen [Pending] Height (Feet): 5 Weight (Pounds): 182 General Appearance: no apparent distress Neck: normal alignment Cardiovascular: normal rate Respiratory/Chest: expiratory wheezing Abdomen: normal bowel sounds Pelvis: normal external exam Edema: no edema noted Arm (L), no edema noted Arm (R), no edema noted Leg (L), no edema noted Leg (R), no edema noted Pedal (L), no edema noted Pedal (R), no edema noted Generalized Objective Current Medications Medications (Trade) Dose Ordered Sig/Ibrahima Route PRN Reason Start Time Stop Time Status Last Admin Dose Admin Acetaminophen (Tylenol) 650 mg Q4H PRN ORAL Mild Pain (Pain Scale 1-3) 09/18/18 18:00 10/17/18 17:59 Acetaminophen/ Codeine Phosphate (Tylenol #3) 1 tab Q4H PRN ORAL Severe Pain (Pain Scale 7-10) 09/18/18 18:00 09/24/18 17:59 Acetaminophen/ Hydrocodone Bitart ([place] 5/325) 1 tab Q4H PRN ORAL moderate pain 09/18/18 18:00 09/24/18 17:59 Acetazolamide (Diamox) 250 mg Q8HR ORAL 09/19/18 22:00 10/19/18 21:59 09/20/18 06:03 Albuterol/ Ipratropium (Albuterol/ Ipratropium) 3 ml Q4H PRN HHN Shortness of breath 09/18/18 18:00 09/22/18 17:59 Apixaban (Eliquis) 5 mg BID ORAL 09/19/18 09:00 10/19/18 08:59 09/20/18 08:59 Dextrose (Dextrose 50%) 25 ml Q30M PRN IV Hypoglycemia 09/18/18 18:00 10/17/18 06:59 Dextrose (Dextrose 50%) 50 ml Q30M PRN IV Hypoglycemia 09/18/18 18:00 10/17/18 06:59 Docusate Sodium (Colace) 100 mg TID ORAL 09/19/18 09:00 10/19/18 08:59 09/20/18 08:59 Folic Acid (Folate) 5 mg DAILY ORAL 09/19/18 09:00 10/18/18 09:59 09/20/18 08:59 Iopamidol (Isovue-300 100ml) 100 ml NOW PRN INJ Radiology Procedure 09/19/18 15:15 09/21/18 15:09 Ondansetron HCl (Zofran) 4 mg Q6H PRN IVP Nausea & Vomiting 09/18/18 18:00 10/17/18 17:59 Pantoprazole (Protonix) 40 mg Q12HR ORAL 09/18/18 21:00 10/18/18 20:59 09/20/18 08:59 Polyethylene Glycol (Miralax) 17 gm DAILYPRN PRN ORAL Constipation 09/18/18 18:00 10/18/18 17:59 Prednisone (predniSONE) 50 mg DAILY ORAL 09/20/18 09:00 10/20/18 08:59 09/20/18 08:59 Risperidone (RisperDAL) 1 mg BEDTIME ORAL 09/18/18 21:00 10/17/18 20:59 09/19/18 21:52 Temazepam (Restoril) 15 mg HSPRN PRN ORAL Insomnia 09/18/18 18:00 09/25/18 17:59 09/20/18 00:40 Thiamine HCl (Vitamin B1) 100 mg DAILY ORAL 09/20/18 09:00 10/20/18 08:59 09/20/18 08:59 Daniel Little MD Sep 20, 2018 09:20
--- NOTE | 2018-09-20 09:55 | Pulmonology Progress Note ---
Assessment/Plan Assessment/Plan ASSESSMENT Acute hypercapnic respiratory failure -resolving Diastolic CHF COPD with exacerbation Partial collapse of the lung vs pleural effusion Acute encephalopathy 2 to hypercapnia Atrial fibrillation, permanent HTN HypoNa E/lyte imbalances ( hypo K, hypo Mg) Microcytic anemia Seizure disorder Hx of ETOH abuse Pacemaker Cerebral vascular disease Paranoid schizophrenia PLAN OF CARE tele off BiPAP , use prn Diamox. CO2 tending down pulmonary toilet CXR 09/18 worse with near complete opacification left lung/ near lung collapse, probably due to atelectasis doubt PNA given no cough, , no fevers, started CPT with HHN, elevate left side of the chest CXR this am - now aeration in the left upper lobe. Continued large opacity of the left hemithorax may be pleural effusion and/or partial lung collapse continue CPT, HHN CT chest pending fup with CXR dc IV steroids, change to oral with tapering down, mild leuk likely due to steroids, will monitor venous Duplex BLE- no acute DVT monitor volumes, cardiorenal parameters , checl pro BNP in am spot diuresis cardio and cardio e/manager pricing followed ECHO with pEF continue Eliquis, rate controlled lipid panel stable monitor BP optimize Rx as needed Hypo Na w/up noted, nephro follows s/p 3% NaCl ; Na corrected replace lytes as needed ( Mg today) BCX prel negative monitor HH with goal to keep Hgb above 7, s/p Venofer x1 anemia w/up c/w anemia of iron deficiency check stool OB, CEA continue Folate and Thiamine GI prophylaxis seizure precautions bowel regimen DNR/DNI status case discussed and evaluated by supervising physician Subjective Allergies: Coded Allergies: PIPERACILLIN (Unverified Allergy, Unknown, 05/21/18) tolerates cephalosporins TAZOBACTAM (Unverified Allergy, Unknown, 03/10/18) Subjective weaned to o2 via NC, no SOB, pulse ox stable no chest pain, CO2 trending down mild leukocytosis this am, no fevers, clinically better , Objective Last 24 Hour Vital Signs Date Time Temp Pulse Resp B/P (MAP) Pulse Ox O2 Delivery O2 Flow Rate FiO2 09/20/18 09:09 Nasal Cannula 2.0 28 09/20/18 09:08 95 Nasal Cannula 2.0 28 09/20/18 09:07 95 18 Nasal Cannula 2.0 28 09/20/18 08:00 97.8 83 19 145/70 (95) 97 09/20/18 04:00 97.5 97 20 126/58 (80) 95 09/20/18 04:00 98 09/20/18 00:00 92 09/19/18 21:00 Bi-pap 09/19/18 20:00 98.7 92 20 158/72 (100) 94 09/19/18 19:50 94 18 Nasal Cannula 2.0 28 09/19/18 19:50 Nasal Cannula 2.0 28 09/19/18 19:50 94 Nasal Cannula 2.0 28 09/19/18 16:00 98.8 91 20 136/64 (88) 96 09/19/18 16:00 88 09/19/18 12:00 89 09/19/18 12:00 98.2 91 21 135/57 (83) 94 Intake and Output 09/19/18 09/20/18 18:59 06:59 Intake Total 1100 ml Output Total 1000 ml 1200 ml Balance 100 ml -1200 ml Intake Oral 1100 ml Output Urine Total 1000 ml 1200 ml # Bowel Movements 1 1 Objective General Appearance: no acute distress, awake, alert, confused female HEENT: normocephalic, atraumatic, anicteric, mucous membranes moist Respiratory/Chest: no respiratory distress, no accessory muscle use, decreased breath sounds, O2 via NC , pacemaker Cardiovascular: no JVD, irregularly irregular - A fib on tele , occas V paced Abdomen: normal bowel sounds, soft, non tender - obese Extremities: pedal pulses normal, trace edema BLE Neurologic/Psychiatric: w/chair bound , alert, responsive Musculoskeletal: atrophy - BLE Laboratory Tests 09/20/18 04:00: Arterial Blood pH 7.172*L, Arterial Blood Partial Pressure CO2 78.1*H, Arterial Blood Partial Pressure O2 101.3H, Arterial Blood HCO3 28.0H, Arterial Blood Oxygen Saturation 95.9, Arterial Blood Base Excess -1.6, Ian Test Positive 09/20/18 05:15: Stool Occult Blood [Pending] 09/20/18 07:00: White Blood Count 11.5#H, Red Blood Count 3.77L, Hemoglobin 9.7L, Hematocrit 31.5L, Mean Corpuscular Volume 84, Mean Corpuscular Hemoglobin 25.7L, Mean Corpuscular Hemoglobin Concent 30.7L, Red Cell Distribution Width 18.9H, Platelet Count 223, Mean Platelet Volume 6.8, Neutrophils (%) (Auto) , Lymphocytes (%) (Auto) , Monocytes (%) (Auto) , Eosinophils (%) (Auto) , Basophils (%) (Auto) , Differential Total Cells Counted 100, Neutrophils % ( Manual) 77H, Lymphocytes % (Manual) 13L, Monocytes % (Manual) 5, Eosinophils % ( Manual) 0, Basophils % (Manual) 0, Band Neutrophils 5, Platelet Estimate Adequate, Platelet Morphology Normal, Polychromasia 1+, Anisocytosis 2+, Sodium Level 135L, Potassium Level 4.4, Chloride Level 96L, Carbon Dioxide Level 34H, Anion Gap 5, Blood Urea Nitrogen 9, Creatinine 0.5L, Estimat Glomerular Filtration Rate , Glucose Level 129H, Uric Acid 4.4, Calcium Level 8.8, Phosphorus Level 4.5, Magnesium Level 1.7L, Total Bilirubin 0.2, Direct Bilirubin < 0.1, Aspartate Amino Transf (AST/SGOT) 15, Alanine Aminotransferase (ALT/SGPT) 19, Alkaline Phosphatase 59, Total Protein 5.9L, Albumin 2.6L, Carcinoembryonic Antigen [Pending] Current Medications Medications (Trade) Dose Ordered Sig/Ibrahima Route PRN Reason Start Time Stop Time Status Last Admin Dose Admin Acetaminophen (Tylenol) 650 mg Q4H PRN ORAL Mild Pain (Pain Scale 1-3) 09/18/18 18:00 10/17/18 17:59 Acetaminophen/ Codeine Phosphate (Tylenol #3) 1 tab Q4H PRN ORAL Severe Pain (Pain Scale 7-10) 09/18/18 18:00 09/24/18 17:59 Acetaminophen/ Hydrocodone Bitart ([place] 5/325) 1 tab Q4H PRN ORAL moderate pain 09/18/18 18:00 09/24/18 17:59 Acetazolamide (Diamox) 250 mg Q8HR ORAL 09/19/18 22:00 10/19/18 21:59 09/20/18 06:03 Albuterol/ Ipratropium (Albuterol/ Ipratropium) 3 ml Q4H PRN HHN Shortness of breath 09/18/18 18:00 09/22/18 17:59 Apixaban (Eliquis) 5 mg BID ORAL 09/19/18 09:00 10/19/18 08:59 09/20/18 08:59 Dextrose (Dextrose 50%) 25 ml Q30M PRN IV Hypoglycemia 09/18/18 18:00 10/17/18 06:59 Dextrose (Dextrose 50%) 50 ml Q30M PRN IV Hypoglycemia 09/18/18 18:00 10/17/18 06:59 Docusate Sodium (Colace) 100 mg TID ORAL 09/19/18 09:00 10/19/18 08:59 09/20/18 08:59 Folic Acid (Folate) 5 mg DAILY ORAL 09/19/18 09:00 10/18/18 09:59 09/20/18 08:59 Iopamidol (Isovue-300 100ml) 100 ml NOW PRN INJ Radiology Procedure 09/19/18 15:15 09/21/18 15:09 Ondansetron HCl (Zofran) 4 mg Q6H PRN IVP Nausea & Vomiting 09/18/18 18:00 10/17/18 17:59 Pantoprazole (Protonix) 40 mg Q12HR ORAL 09/18/18 21:00 10/18/18 20:59 09/20/18 08:59 Polyethylene Glycol (Miralax) 17 gm DAILYPRN PRN ORAL Constipation 09/18/18 18:00 10/18/18 17:59 Prednisone (predniSONE) 50 mg DAILY ORAL 09/20/18 09:00 10/20/18 08:59 09/20/18 08:59 Risperidone (RisperDAL) 1 mg BEDTIME ORAL 09/18/18 21:00 10/17/18 20:59 09/19/18 21:52 Temazepam (Restoril) 15 mg HSPRN PRN ORAL Insomnia 09/18/18 18:00 09/25/18 17:59 09/20/18 00:40 Thiamine HCl (Vitamin B1) 100 mg DAILY ORAL 09/20/18 09:00 10/20/18 08:59 09/20/18 08:59 Jazzy Campuzano [employer] Sep 20, 2018 09:55
--- NOTE | 2018-09-20 10:41 | Nephrology Progress Note ---
Assessment/Plan Problem List: (1) Respiratory failure, acute (2) Hyponatremia (3) Seizure disorder (4) Acute diastolic CHF (congestive heart failure) (5) COPD (chronic obstructive pulmonary disease) (6) Pacemaker Assessment HypoNatremia ? Etiology: depletional / Diuretics / SIADH ... Need more data to pin point etiology Acute respiratory failure on BIPAP- COPD Encephalopathy due to high CO2 Pacemaker UTI Low MCV Anemia Hypoalbuminemia EjFx 55% last admission h/o Atfib Plan Plan; BIPAP as needed- Diamox adjust dose [place] 3% saline one time given stop lasix IV iron monitor lytes Anemia [place] solumedrol to po prednisone per orders Subjective ROS Limited/Unobtainable: No Constitutional: Reports: malaise Objective Objective Last 24 Hour Vital Signs Date Time Temp Pulse Resp B/P (MAP) Pulse Ox O2 Delivery O2 Flow Rate FiO2 09/20/18 09:52 77 18 94 Facial 40 09/20/18 09:09 Nasal Cannula 2.0 28 09/20/18 09:08 95 Nasal Cannula 2.0 28 09/20/18 09:07 95 18 Nasal Cannula 2.0 28 09/20/18 09:00 Bi-pap 09/20/18 08:00 97.8 83 19 145/70 (95) 97 09/20/18 08:00 82 09/20/18 04:00 97.5 97 20 126/58 (80) 95 09/20/18 04:00 98 09/20/18 00:00 92 09/19/18 21:00 Bi-pap 09/19/18 20:00 98.7 92 20 158/72 (100) 94 09/19/18 19:50 94 18 Nasal Cannula 2.0 28 09/19/18 19:50 Nasal Cannula 2.0 28 09/19/18 19:50 94 Nasal Cannula 2.0 28 09/19/18 16:00 98.8 91 20 136/64 (88) 96 09/19/18 16:00 88 09/19/18 12:00 89 09/19/18 12:00 98.2 91 21 135/57 (83) 94 Intake and Output 09/19/18 09/20/18 18:59 06:59 Intake Total 1100 ml Output Total 1000 ml 1200 ml Balance 100 ml -1200 ml Intake Oral 1100 ml Output Urine Total 1000 ml 1200 ml # Bowel Movements 1 1 Laboratory Tests 09/20/18 04:00: Arterial Blood pH 7.172*L, Arterial Blood Partial Pressure CO2 78.1*H, Arterial Blood Partial Pressure O2 101.3H, Arterial Blood HCO3 28.0H, Arterial Blood Oxygen Saturation 95.9, Arterial Blood Base Excess -1.6, Ian Test Positive 09/20/18 05:15: Stool Occult Blood [Pending] 09/20/18 07:00: White Blood Count 11.5#H, Red Blood Count 3.77L, Hemoglobin 9.7L, Hematocrit 31.5L, Mean Corpuscular Volume 84, Mean Corpuscular Hemoglobin 25.7L, Mean Corpuscular Hemoglobin Concent 30.7L, Red Cell Distribution Width 18.9H, Platelet Count 223, Mean Platelet Volume 6.8, Neutrophils (%) (Auto) , Lymphocytes (%) (Auto) , Monocytes (%) (Auto) , Eosinophils (%) (Auto) , Basophils (%) (Auto) , Differential Total Cells Counted 100, Neutrophils % ( Manual) 77H, Lymphocytes % (Manual) 13L, Monocytes % (Manual) 5, Eosinophils % ( Manual) 0, Basophils % (Manual) 0, Band Neutrophils 5, Platelet Estimate Adequate, Platelet Morphology Normal, Polychromasia 1+, Anisocytosis 2+, Sodium Level 135L, Potassium Level 4.4, Chloride Level 96L, Carbon Dioxide Level 34H, Anion Gap 5, Blood Urea Nitrogen 9, Creatinine 0.5L, Estimat Glomerular Filtration Rate , Glucose Level 129H, Uric Acid 4.4, Calcium Level 8.8, Phosphorus Level 4.5, Magnesium Level 1.7L, Total Bilirubin 0.2, Direct Bilirubin < 0.1, Aspartate Amino Transf (AST/SGOT) 15, Alanine Aminotransferase (ALT/SGPT) 19, Alkaline Phosphatase 59, Total Protein 5.9L, Albumin 2.6L, Carcinoembryonic Antigen [Pending] Height (Feet): 5 Weight (Pounds): 182 EENT: other Cardiovascular: arrhythmia, other - vaeriable rate Respiratory/Chest: other - no wheeze Abdomen: distended Objective no change Danilo Huber MD Sep 20, 2018 10:41
[2018-09-20 12:00] VITALS: BP 131/76
--- NOTE | 2018-09-20 13:08 | Internal Med Progress Note ---
Subjective Date of Service: Sep 20, 2018 Physician Name Juan Dutta Attending Physician Yonathan Mendoza MD Current Medications Medications (Trade) Dose Ordered Sig/Ibrahima Route PRN Reason Start Time Stop Time Status Last Admin Dose Admin Acetaminophen (Tylenol) 650 mg Q4H PRN ORAL Mild Pain (Pain Scale 1-3) 09/18/18 18:00 10/17/18 17:59 Acetaminophen/ Codeine Phosphate (Tylenol #3) 1 tab Q4H PRN ORAL Severe Pain (Pain Scale 7-10) 09/18/18 18:00 09/24/18 17:59 Acetaminophen/ Hydrocodone Bitart ([place] 5/325) 1 tab Q4H PRN ORAL moderate pain 09/18/18 18:00 09/24/18 17:59 Acetazolamide (Diamox) 250 mg Q8HR ORAL 09/19/18 22:00 10/19/18 21:59 09/20/18 06:03 Albuterol/ Ipratropium (Albuterol/ Ipratropium) 3 ml Q4H PRN HHN Shortness of breath 09/18/18 18:00 09/22/18 17:59 Apixaban (Eliquis) 5 mg BID ORAL 09/19/18 09:00 10/19/18 08:59 09/20/18 08:59 Dextrose (Dextrose 50%) 25 ml Q30M PRN IV Hypoglycemia 09/18/18 18:00 10/17/18 06:59 Dextrose (Dextrose 50%) 50 ml Q30M PRN IV Hypoglycemia 09/18/18 18:00 10/17/18 06:59 Docusate Sodium (Colace) 100 mg TID ORAL 09/19/18 09:00 10/19/18 08:59 09/20/18 08:59 Folic Acid (Folate) 5 mg DAILY ORAL 09/19/18 09:00 10/18/18 09:59 09/20/18 08:59 Iopamidol (Isovue-300 100ml) 100 ml NOW PRN INJ Radiology Procedure 09/19/18 15:15 09/21/18 15:09 Ondansetron HCl (Zofran) 4 mg Q6H PRN IVP Nausea & Vomiting 09/18/18 18:00 10/17/18 17:59 Pantoprazole (Protonix) 40 mg Q12HR ORAL 09/18/18 21:00 10/18/18 20:59 09/20/18 08:59 Polyethylene Glycol (Miralax) 17 gm DAILYPRN PRN ORAL Constipation 09/18/18 18:00 10/18/18 17:59 Prednisone (predniSONE) 40 mg DAILY ORAL 09/21/18 09:00 10/20/18 08:59 Risperidone (RisperDAL) 1 mg BEDTIME ORAL 09/18/18 21:00 10/17/18 20:59 09/19/18 21:52 Temazepam (Restoril) 15 mg HSPRN PRN ORAL Insomnia 09/18/18 18:00 09/25/18 17:59 09/20/18 00:40 Thiamine HCl (Vitamin B1) 100 mg DAILY ORAL 09/20/18 09:00 10/20/18 08:59 09/20/18 08:59 Allergies: Coded Allergies: PIPERACILLIN (Unverified Allergy, Unknown, 05/21/18) tolerates cephalosporins TAZOBACTAM (Unverified Allergy, Unknown, 03/10/18) ROS Limited/Unobtainable: No Constitutional: Reports: no symptoms HEENT: Reports: no symptoms Cardiovascular: Reports: no symptoms Respiratory: Reports: no symptoms Gastrointestinal/Abdominal: Reports: no symptoms Genitourinary: Reports: no symptoms Neurologic/Psychiatric: Reports: no symptoms Subjective 77 YO F admitted for respiratory distress. Now left pleural effusion. Cover for Int Jose A-DR Mendoza Objective Last Vital Signs Date Time Temp Pulse Resp B/P (MAP) Pulse Ox O2 Delivery O2 Flow Rate FiO2 09/20/18 12:00 98.7 80 19 131/76 (94) 97 09/20/18 09:52 Facial 40 09/20/18 09:09 2.0 Laboratory Tests Test 09/20/18 04:00 09/20/18 05:15 09/20/18 07:00 Arterial Blood pH 7.172 (7.350-7.450) Arterial Blood Partial Pressure CO2 78.1 mmHg (35.0-45.0) *H Arterial Blood Partial Pressure O2 101.3 mmHg (75.0-100.0) H Arterial Blood HCO3 28.0 mmol/L (22.0-26.0) H Arterial Blood Oxygen Saturation 95.9 % (95-100) Arterial Blood Base Excess -1.6 (-2-2) Ian Test Positive Stool Occult Blood Pending White Blood Count 11.5 K/UL (4.8-10.8) #H Red Blood Count 3.77 M/UL (4.20-5.40) L Hemoglobin 9.7 G/DL (12.0-16.0) L Hematocrit 31.5 % (37.0-47.0) L Mean Corpuscular Volume 84 FL (80-99) Mean Corpuscular Hemoglobin 25.7 PG (27.0-31.0) L Mean Corpuscular Hemoglobin Concent 30.7 G/DL (32.0-36.0) L Red Cell Distribution Width 18.9 % (11.6-14.8) H Platelet Count 223 K/UL (150-450) Mean Platelet Volume 6.8 FL (6.5-10.1) Neutrophils (%) (Auto) % (45.0-75.0) Lymphocytes (%) (Auto) % (20.0-45.0) Monocytes (%) (Auto) % (1.0-10.0) Eosinophils (%) (Auto) % (0.0-3.0) Basophils (%) (Auto) % (0.0-2.0) Differential Total Cells Counted 100 Neutrophils % (Manual) 77 % (45-75) H Lymphocytes % (Manual) 13 % (20-45) L Monocytes % (Manual) 5 % (1-10) Eosinophils % (Manual) 0 % (0-3) Basophils % (Manual) 0 % (0-2) Band Neutrophils 5 % (0-8) Platelet Estimate Adequate Platelet Morphology Normal Polychromasia 1+ Anisocytosis 2+ Sodium Level 135 MMOL/L (136-145) L Potassium Level 4.4 MMOL/L (3.5-5.1) Chloride Level 96 MMOL/L (98-107) L Carbon Dioxide Level 34 MMOL/L (21-32) H Anion Gap 5 mmol/L (5-15) Blood Urea Nitrogen 9 mg/dL (7-18) Creatinine 0.5 MG/DL (0.55-1.30) L Estimat Glomerular Filtration Rate mL/min (>60) Glucose Level 129 MG/DL (74-106) H Uric Acid 4.4 MG/DL (2.6-7.2) Calcium Level 8.8 MG/DL (8.5-10.1) Phosphorus Level 4.5 MG/DL (2.5-4.9) Magnesium Level 1.7 MG/DL (1.8-2.4) L Total Bilirubin 0.2 MG/DL (0.2-1.0) Direct Bilirubin < 0.1 MG/DL (0.0-0.3) Aspartate Amino Transf (AST/SGOT) 15 U/L (15-37) Alanine Aminotransferase (ALT/SGPT) 19 U/L (12-78) Alkaline Phosphatase 59 U/L (46-116) Total Protein 5.9 G/DL (6.4-8.2) L Albumin 2.6 G/DL (3.4-5.0) L Carcinoembryonic Antigen Pending Intake and Output 09/19/18 09/20/18 19:00 07:00 Intake Total 1100 ml Output Total 1000 ml 1200 ml Balance 100 ml -1200 ml Intake Oral 1100 ml Output Urine Total 1000 ml 1200 ml # Bowel Movements 1 1 Objective PHYSICAL EXAMINATION: GENERAL: The patient is a well-developed and well-nourished white female, who is in moderate respiratory distress. HEENT: Eyes, pupils are equal and responsive to light and accommodation. Extraocular movements are intact. NECK: Supple without lymphadenopathy. CHEST: Few rales in bilateral bases, otherwise, Lungs are clear to auscultation bilaterally without wheezes CARDIOVASCULAR: Regular rhythm and rate. S1 and S2 normal without murmurs, rubs, or gallops. ABDOMEN: Soft, nontender, and nondistended. Positive bowel sounds. No evidence of hepatosplenomegaly. Currently, no rebound or guarding noted. EXTREMITIES: Negative for clubbing, cyanosis, or edema. RECTAL/GENITAL: Refused. NEUROLOGIC: Cranial nerves II through XII are grossly intact without focal deficits. Motor strength is 5/5 bilaterally. Deep tendon reflexes are 2+ plantar. Assessment/Plan Assessment/Plan ASSESSMENT: This is a 77-year-old white female with: 1. Shortness of breath. 2. Hypoxia. 3. Acute on chronic congestive heart failure. 4. Atrial flutter. 5. Hyponatremia. 6. Chronic obstructive pulmonary disease. 7. Coronary artery disease. 8. Hypertension. 9. Seizure disorder. 10. Paranoid schizophrenia. 11. Intraventricular pacemaker 12. left pleural effusion-await CT chest and thoracentesis TREATMENT: 1. Shortness of breath/congestive heart failure. Cardiology consultation has been obtained with Dr. Milian. The patient is currently receiving intravenous Lasix. We will follow recommendation of Cardiology. BNP is elevated at over greater than 5000. An echocardiogram is pending. 2. Atrial flutter. Continue Eliquis as above. 3. Hyponatremia. The patient is currently receiving intravenous fluids. 4. Chronic obstructive pulmonary disease. Continue DuoNeb nebulized as above. The patient was initially placed on BiPAP in the emergency room. A Pulmonary consultation has been obtained with Dr. Mendel Sierra. 5. Hypertension. Continue Lasix as above. 6. Seizure disorder. The patient is currently off antiseizure medication. 7. Paranoid schizophrenia. Continue Risperdal as above. 8. CT chest pending Juan Dutta MD Sep 20, 2018 13:08
--- NOTE | 2018-09-20 13:30 | Cardiac Electrophysiology PN ---
Assessment/Plan Assessment/Plan 1. Status post leadless Med[employer] pacemaker placement in 2016. Is intermittent ventricular pacing. 2. Chronic atrial fibrillation. The rate is currently controlled. Off any antiarrhythmics. The patient is on anticoagulation with Eliquis 5 mg b.i.d. 3. Severe COPD. On Solu-Medrol. 4. Diastolic congestive heart failure. Further evaluation by Dr. [place]. 5. Diabetes. Followed by Dr. Little. 6. Pleural effusion. Thoracentesis pending DYLAN RN Subjective Subjective Alert in NAD. Scheduled for CT chest and Left thoracentesis today Objective Last 24 Hour Vital Signs Date Time Temp Pulse Resp B/P (MAP) Pulse Ox O2 Delivery O2 Flow Rate FiO2 09/20/18 12:00 98.7 80 19 131/76 (94) 97 09/20/18 09:52 77 18 94 Facial 40 09/20/18 09:09 Nasal Cannula 2.0 28 09/20/18 09:08 95 Nasal Cannula 2.0 28 09/20/18 09:07 95 18 Nasal Cannula 2.0 28 09/20/18 09:00 Bi-pap 09/20/18 08:00 97.8 83 19 145/70 (95) 97 09/20/18 08:00 82 09/20/18 04:00 97.5 97 20 126/58 (80) 95 09/20/18 04:00 98 09/20/18 00:00 92 09/19/18 21:00 Bi-pap 09/19/18 20:00 98.7 92 20 158/72 (100) 94 09/19/18 19:50 94 18 Nasal Cannula 2.0 28 09/19/18 19:50 Nasal Cannula 2.0 28 09/19/18 19:50 94 Nasal Cannula 2.0 28 09/19/18 16:00 98.8 91 20 136/64 (88) 96 09/19/18 16:00 88 Intake and Output 09/19/18 09/20/18 19:00 07:00 Intake Total 1100 ml Output Total 1000 ml 1200 ml Balance 100 ml -1200 ml Intake Oral 1100 ml Output Urine Total 1000 ml 1200 ml # Bowel Movements 1 1 Laboratory Tests Test 09/20/18 04:00 09/20/18 05:15 09/20/18 07:00 Arterial Blood pH 7.172 (7.350-7.450) Arterial Blood Partial Pressure CO2 78.1 mmHg (35.0-45.0) *H Arterial Blood Partial Pressure O2 101.3 mmHg (75.0-100.0) H Arterial Blood HCO3 28.0 mmol/L (22.0-26.0) H Arterial Blood Oxygen Saturation 95.9 % (95-100) Arterial Blood Base Excess -1.6 (-2-2) Ian Test Positive Stool Occult Blood Pending White Blood Count 11.5 K/UL (4.8-10.8) #H Red Blood Count 3.77 M/UL (4.20-5.40) L Hemoglobin 9.7 G/DL (12.0-16.0) L Hematocrit 31.5 % (37.0-47.0) L Mean Corpuscular Volume 84 FL (80-99) Mean Corpuscular Hemoglobin 25.7 PG (27.0-31.0) L Mean Corpuscular Hemoglobin Concent 30.7 G/DL (32.0-36.0) L Red Cell Distribution Width 18.9 % (11.6-14.8) H Platelet Count 223 K/UL (150-450) Mean Platelet Volume 6.8 FL (6.5-10.1) Neutrophils (%) (Auto) % (45.0-75.0) Lymphocytes (%) (Auto) % (20.0-45.0) Monocytes (%) (Auto) % (1.0-10.0) Eosinophils (%) (Auto) % (0.0-3.0) Basophils (%) (Auto) % (0.0-2.0) Differential Total Cells Counted 100 Neutrophils % (Manual) 77 % (45-75) H Lymphocytes % (Manual) 13 % (20-45) L Monocytes % (Manual) 5 % (1-10) Eosinophils % (Manual) 0 % (0-3) Basophils % (Manual) 0 % (0-2) Band Neutrophils 5 % (0-8) Platelet Estimate Adequate Platelet Morphology Normal Polychromasia 1+ Anisocytosis 2+ Sodium Level 135 MMOL/L (136-145) L Potassium Level 4.4 MMOL/L (3.5-5.1) Chloride Level 96 MMOL/L (98-107) L Carbon Dioxide Level 34 MMOL/L (21-32) H Anion Gap 5 mmol/L (5-15) Blood Urea Nitrogen 9 mg/dL (7-18) Creatinine 0.5 MG/DL (0.55-1.30) L Estimat Glomerular Filtration Rate mL/min (>60) Glucose Level 129 MG/DL (74-106) H Uric Acid 4.4 MG/DL (2.6-7.2) Calcium Level 8.8 MG/DL (8.5-10.1) Phosphorus Level 4.5 MG/DL (2.5-4.9) Magnesium Level 1.7 MG/DL (1.8-2.4) L Total Bilirubin 0.2 MG/DL (0.2-1.0) Direct Bilirubin < 0.1 MG/DL (0.0-0.3) Aspartate Amino Transf (AST/SGOT) 15 U/L (15-37) Alanine Aminotransferase (ALT/SGPT) 19 U/L (12-78) Alkaline Phosphatase 59 U/L (46-116) Total Protein 5.9 G/DL (6.4-8.2) L Albumin 2.6 G/DL (3.4-5.0) L Carcinoembryonic Antigen Pending Objective HEAD AND NECK: Shows mild JVD. LUNGS: Coarse rhonchi bilaterally. CARDIOVASCULAR: Shows irregular S1 and S2 with no gallop. ABDOMEN: Soft. EXTREMITIES: No pitting edema. Yohan Milian MD Sep 20, 2018 13:30
[2018-09-20 16:00] VITALS: BP 130/72
--- NOTE | 2018-09-20 19:15 | NUR ---
HAND-OFF: Report given to CHARLETTE Palacios. No acute s/s of distress.
--- NOTE | 2018-09-20 19:50 | NUR ---
NURSE NOTES: Received pt from CHARLETTE Mujica. Pt awake, alert, and exhibiting wet productive cough. Bed in lowest position. Call light within reach. Will continue to monitor.
[2018-09-20 20:00] VITALS: BP 113/56
[2018-09-21] VITALS: BP 117/75
--- NOTE | 2018-09-21 00:18 | NUR ---
HAND-OFF: Report given to CHARLETTE Foster. Pt stable.
--- NOTE | 2018-09-21 00:25 | NUR ---
NURSE NOTES: Will endorse to radiologist in the AM that Eliquis was held since Day shift yesterday.
--- NOTE | 2018-09-21 00:30 | NUR ---
NURSE NOTES: Report received from CHARLETTE Palacios. Observed pt sleeping on the bed. NO signs of distress noted at this time. On NS 4L, with no signs of sob. SR noted with cardiac cath lab radiology technologist. Reposition done. Side rails padded and up x3. Will continue to monitor.
[2018-09-21 04:00] VITALS: BP 112/54
--- NOTE | 2018-09-21 06:32 | General Progress Note ---
Assessment/Plan Problem List: (1) COPD (chronic obstructive pulmonary disease) ICD Codes: J44.9 - Chronic obstructive pulmonary disease, unspecified SNOMED: 38720942 Qualifiers: Qualified Codes: J44.9 - Chronic obstructive pulmonary disease, unspecified (2) Hyponatremia ICD Codes: E87.1 - Hyponatremia SNOMED: 67168082 (3) HTN (hypertension) ICD Codes: I10 - Hypertension SNOMED: 65378988 Assessment: Na only mildly low no evidence of adrenal insufficiency or hypothyroidism continue current management Subjective Allergies: Coded Allergies: PIPERACILLIN (Unverified Allergy, Unknown, 05/21/18) tolerates cephalosporins TAZOBACTAM (Unverified Allergy, Unknown, 03/10/18) All Systems: reviewed and negative except above Subjective events noted Objective Last 24 Hour Vital Signs Date Time Temp Pulse Resp B/P (MAP) Pulse Ox O2 Delivery O2 Flow Rate FiO2 09/21/18 04:00 86 09/21/18 04:00 98.5 78 24 112/54 (73) 93 09/21/18 00:00 97.6 79 20 117/75 (89) 95 09/21/18 00:00 86 09/20/18 21:27 94 Nasal Cannula 2.0 28 09/20/18 21:27 80 18 94 Nasal Cannula 2.0 28 09/20/18 21:27 Nasal Cannula 2.0 28 09/20/18 21:27 80 18 Nasal Cannula 2.0 28 09/20/18 21:00 Bi-pap 09/20/18 20:00 98.1 91 21 113/56 (75) 97 09/20/18 20:00 90 09/20/18 16:00 85 09/20/18 16:00 98.3 74 17 130/72 (91) 98 09/20/18 12:00 98.7 80 19 131/76 (94) 97 09/20/18 12:00 86 09/20/18 09:52 77 18 94 Facial 40 09/20/18 09:09 Nasal Cannula 2.0 28 09/20/18 09:08 95 Nasal Cannula 2.0 28 09/20/18 09:07 95 18 Nasal Cannula 2.0 28 09/20/18 09:00 Bi-pap 09/20/18 08:00 97.8 83 19 145/70 (95) 97 09/20/18 08:00 82 Intake and Output 09/20/18 09/21/18 19:00 07:00 Intake Total 680 ml 60 ml Output Total 600 ml 750 ml Balance 80 ml -690 ml Intake Oral 60 ml Other 680 ml Output Urine Total 600 ml 750 ml Laboratory Tests 09/20/18 07:00: White Blood Count 11.5#H, Red Blood Count 3.77L, Hemoglobin 9.7L, Hematocrit 31.5L, Mean Corpuscular Volume 84, Mean Corpuscular Hemoglobin 25.7L, Mean Corpuscular Hemoglobin Concent 30.7L, Red Cell Distribution Width 18.9H, Platelet Count 223, Mean Platelet Volume 6.8, Neutrophils (%) (Auto) , Lymphocytes (%) (Auto) , Monocytes (%) (Auto) , Eosinophils (%) (Auto) , Basophils (%) (Auto) , Differential Total Cells Counted 100, Neutrophils % ( Manual) 77H, Lymphocytes % (Manual) 13L, Monocytes % (Manual) 5, Eosinophils % ( Manual) 0, Basophils % (Manual) 0, Band Neutrophils 5, Platelet Estimate Adequate, Platelet Morphology Normal, Polychromasia 1+, Anisocytosis 2+, Sodium Level 135L, Potassium Level 4.4, Chloride Level 96L, Carbon Dioxide Level 34H, Anion Gap 5, Blood Urea Nitrogen 9, Creatinine 0.5L, Estimat Glomerular Filtration Rate , Glucose Level 129H, Uric Acid 4.4, Calcium Level 8.8, Phosphorus Level 4.5, Magnesium Level 1.7L, Total Bilirubin 0.2, Direct Bilirubin < 0.1, Aspartate Amino Transf (AST/SGOT) 15, Alanine Aminotransferase (ALT/SGPT) 19, Alkaline Phosphatase 59, Total Protein 5.9L, Albumin 2.6L, Carcinoembryonic Antigen [Pending] Height (Feet): 5 Weight (Pounds): 182 General Appearance: no apparent distress Neck: normal alignment Cardiovascular: normal rate Respiratory/Chest: expiratory wheezing Abdomen: normal bowel sounds Pelvis: normal external exam Objective Current Medications Medications (Trade) Dose Ordered Sig/Ibrahima Route PRN Reason Start Time Stop Time Status Last Admin Dose Admin Acetaminophen (Tylenol) 650 mg Q4H PRN ORAL Mild Pain (Pain Scale 1-3) 09/18/18 18:00 10/17/18 17:59 Acetaminophen/ Codeine Phosphate (Tylenol #3) 1 tab Q4H PRN ORAL Severe Pain (Pain Scale 7-10) 09/18/18 18:00 09/24/18 17:59 Acetaminophen/ Hydrocodone Bitart ([place] 5/325) 1 tab Q4H PRN ORAL moderate pain 09/18/18 18:00 09/24/18 17:59 Acetazolamide (Diamox) 250 mg Q8HR ORAL 09/19/18 22:00 10/19/18 21:59 09/21/18 05:19 Albuterol/ Ipratropium (Albuterol/ Ipratropium) 3 ml Q4H PRN HHN Shortness of breath 09/18/18 18:00 09/22/18 17:59 09/20/18 21:27 Apixaban (Eliquis) 5 mg BID ORAL 09/19/18 09:00 10/19/18 08:59 09/20/18 08:59 Dextrose (Dextrose 50%) 25 ml Q30M PRN IV Hypoglycemia 09/18/18 18:00 10/17/18 06:59 Dextrose (Dextrose 50%) 50 ml Q30M PRN IV Hypoglycemia 09/18/18 18:00 10/17/18 06:59 Docusate Sodium (Colace) 100 mg TID ORAL 09/19/18 09:00 10/19/18 08:59 09/20/18 18:07 Folic Acid (Folate) 5 mg DAILY ORAL 09/19/18 09:00 10/18/18 09:59 09/20/18 08:59 Iopamidol (Isovue-300 100ml) 100 ml NOW PRN INJ Radiology Procedure 09/19/18 15:15 09/21/18 15:09 Ondansetron HCl (Zofran) 4 mg Q6H PRN IVP Nausea & Vomiting 09/18/18 18:00 10/17/18 17:59 Pantoprazole (Protonix) 40 mg Q12HR ORAL 09/18/18 21:00 10/18/18 20:59 09/20/18 21:51 Polyethylene Glycol (Miralax) 17 gm DAILYPRN PRN ORAL Constipation 09/18/18 18:00 10/18/18 17:59 Prednisone (predniSONE) 40 mg DAILY ORAL 09/21/18 09:00 10/20/18 08:59 Risperidone (RisperDAL) 1 mg BEDTIME ORAL 09/18/18 21:00 10/17/18 20:59 09/20/18 21:51 Temazepam (Restoril) 15 mg HSPRN PRN ORAL Insomnia 09/18/18 18:00 09/25/18 17:59 09/20/18 00:40 Thiamine HCl (Vitamin B1) 100 mg DAILY ORAL 09/20/18 09:00 10/20/18 08:59 09/20/18 08:59 Daniel Little MD Sep 21, 2018 06:32
--- NOTE | 2018-09-21 07:10 | NUR ---
HAND-OFF: Report given to CHARLETTE Mujica.
--- NOTE | 2018-09-21 07:15 | NUR ---
NURSE NOTES: Pt received from Cristian RN alert and oriented x4, currently eating breakfast sitting up in bed being assisted by SURGICAL ATTENDANT. IV site asymptomatic and patent. No s/s of acute distress, currently on 4L NC, no s/s of SOB. Bed in lowest position, call light and belongings within reach. On monitor and storage bin tender - A-fib, 84
[2018-09-21 07:38] LABS: BASOPHILS % (AUTO) 0.8 % (0.0-2.0); EOSINOPHILS % (AUTO) 0.2 % (0.0-3.0); HEMATOCRIT 31.5 % (37.0-47.0); HEMOGLOBIN 9.6 G/DL (12.0-16.0); LYMPHOCYTES % (AUTO) 15.8 % (20.0-45.0); MEAN CORPUSCULAR VOLUME 84 FL (80-99); MONOCYTES % (AUTO) 6.2 % (1.0-10.0); NEUTROPHILS % (AUTO) 76.9 % (45.0-75.0); PLATELET COUNT 218 K/UL (150-450); RED BLOOD COUNT 3.77 M/UL (4.20-5.40); RED CELL DISTRIBUTION WIDTH 18.9 % (11.6-14.8); WHITE BLOOD COUNT 8.5 K/UL (4.8-10.8)
[2018-09-21 08:00] VITALS: BP 124/75
[2018-09-21 08:10] LABS: ANION GAP 4 mmol/L (5-15); BLOOD UREA NITROGEN 10 mg/dL (7-18); CALCIUM 9.1 MG/DL (8.5-10.1); CARBON DIOXIDE 33 MMOL/L (21-32); CHLORIDE 99 MMOL/L (98-107); CREATININE 0.5 MG/DL (0.55-1.30); SODIUM 136 MMOL/L (136-145)
--- NOTE | 2018-09-21 08:17 | NUR ---
RADIOLOGY: PCXR COMPLETED 0815 HRS. BY NF, FA
[2018-09-21] MEDS: Eliquis 2.5mg tablet ORAL SCH ×2 (09:00→17:30)
--- NOTE | 2018-09-21 09:20 | NUR ---
CT CHEST WITH CONTRAST COMPLETED. TJB [id number]
[2018-09-21] MEDS: Thiamine 100mg tab ORAL SCH (09:48)
[2018-09-21] MEDS: Docusate 100mg/10ml Liq ORAL SCH ×3 (09:48→17:30)
--- NOTE | 2018-09-21 10:32 | Diagnostic Imaging Report ---
Indication: Cough Technique: One view of the chest Comparison: 09/20/2018 Findings: Interim complete opacification of the left hemithorax. There is shift of the trachea to the left. There is some hazy consolidation of the right lung base. There are dense mitral annular calcifications. Monitoring device overlies the left heart border. There are degenerative changes of the right shoulder Impression: Interim complete opacification of the left hemithorax. Subsequent ossicular imaging studies indicates that this is due to complete atelectasis of the left lung. Equivocal hazy right basilar infiltrate Dr. Sierra notified at the time of interpretation
--- NOTE | 2018-09-21 11:02 | Diagnostic Imaging Report ---
Clinical Indication: Shortness of breath, opacified left hemithorax demonstrated on recent chest radiograph Technique: IV administration nonionic contrast. Spiral acquisition obtained through the chest. Multiplanar reconstructions generated. Total dose length product 981.49 mGycm. CTDIvol(s) 26.5 mGy. Dose reduction achieved using automated exposure control Comparison: Chest CT angiogram dated 03/13/2018 Findings: The left lung is now completely atelectatic. Previous exam demonstrated left lower lobe atelectasis. There is a small left pleural effusion which is equivocally slightly larger than that seen previously. The left mainstem bronchus appears to be patent although somewhat narrowed distally. There does appear to be occlusion of the orifices of the lumbar bronchi, and no air bronchograms are visualized. A few small foci of air are seen within a few upper lobe bronchi. There is suggestion of slight low attenuation soft tissue fullness in the left pulmonary hilum,: This area measures approximately 2.2 cm in diameter, appears similar to the previous study. There is trace right pleural fluid, probably equivalent amount to that seen on the prior study. Groundglass opacity is seen throughout most of the right lung, with sparing of a few areas in the upper and lower lobes. There is also some atelectasis of the inferior and posterior right lower lobe. There is a pericardial effusion which appears similar in extent to the previous study. The heart is mildly enlarged. There is dense mitral annular calcification again demonstrated. A monitor device is seen in the right ventricular apex attached to the septum, also evident previously in retrospect. The main pulmonary artery is ectatic, measuring up to 38 mm in diameter. There is an enlarged aortopulmonary window node which measures up to 28 mm in diameter possibly evident previously but definitely enlarged since the previous study. Other prominent but not frankly enlarged mediastinal nodes are demonstrated. The thyroid is unremarkable. No axillary or chest wall mass or adenopathy demonstrated. The esophagus is unremarkable. The included upper abdominal anatomy demonstrates calcified gallstones. The spleen is enlarged, measuring at least 13.3 cm long axis dimension. Impression: Completely atelectatic left lung. This is likely due to endobronchial occlusion by debris. However, a small pulmonary hilar mass may also be present. This finding was discussed by phone with Dr. Sierra previously Small left pleural effusion. Trace right pleural effusion Posterior and basilar atelectatic changes of the right lung Single enlarged aortopulmonary window lymph node. This could be neoplastic or reactive. This is increased in size since prior study 03/13/2018 Right lung groundglass opacity, nonspecific but likely on the basis of mild pulmonary edema Mild cardiomegaly Pericardial effusion Cholelithiasis Splenomegaly Presumed monitoring device within the right ventricle The CT scanner at [facility] is accredited by the [place] [employer] and the scans are performed using protocols designed to limit radiation exposure to as low as reasonably achievable to attain images of sufficient resolution adequate for diagnostic evaluation.
--- NOTE | 2018-09-21 11:13 | Pulmonology Progress Note ---
Assessment/Plan Problems: (1) Collapse of left lung (2) Respiratory failure, acute (3) Acute encephalopathy (4) COPD (chronic obstructive pulmonary disease) (5) Atrial fibrillation with RVR (6) HTN (hypertension) (7) Seizure disorder (8) Pacemaker (9) Cerebral vascular disease (10) Gout Assessment/Plan chest PT, Keep the pt at the right side continue diuretics check electrolytes Phos supplement respiratory treatment monitor heart rate aspiration precaution dvt prophylaxis. Subjective ROS Limited/Unobtainable: No Constitutional: Reports: no symptoms HEENT: Repors: no symptoms Allergies: Coded Allergies: PIPERACILLIN (Unverified Allergy, Unknown, 05/21/18) tolerates cephalosporins TAZOBACTAM (Unverified Allergy, Unknown, 03/10/18) Objective Last 24 Hour Vital Signs Date Time Temp Pulse Resp B/P (MAP) Pulse Ox O2 Delivery O2 Flow Rate FiO2 09/21/18 08:00 97.4 89 20 124/75 (91) 93 09/21/18 07:15 96 Nasal Cannula 2.0 28 09/21/18 07:15 Nasal Cannula 2.0 28 09/21/18 07:15 76 16 Nasal Cannula 2.0 28 09/21/18 04:00 86 09/21/18 04:00 98.5 78 24 112/54 (73) 93 09/21/18 00:00 97.6 79 20 117/75 (89) 95 09/21/18 00:00 86 09/20/18 21:27 94 Nasal Cannula 2.0 28 09/20/18 21:27 80 18 94 Nasal Cannula 2.0 28 09/20/18 21:27 Nasal Cannula 2.0 28 09/20/18 21:27 80 18 Nasal Cannula 2.0 28 09/20/18 21:00 Bi-pap 09/20/18 20:00 98.1 91 21 113/56 (75) 97 09/20/18 20:00 90 09/20/18 16:00 85 09/20/18 16:00 98.3 74 17 130/72 (91) 98 09/20/18 12:00 98.7 80 19 131/76 (94) 97 09/20/18 12:00 86 Intake and Output 09/20/18 09/21/18 18:59 06:59 Intake Total 680 ml 60 ml Output Total 600 ml 750 ml Balance 80 ml -690 ml Intake Oral 60 ml Other 680 ml Output Urine Total 600 ml 750 ml Objective still off bipap, left lung collapsed. Respiratory/Chest: chest wall non-tender, lungs clear, decreased breath sounds - at left, crackles/rales Cardiovascular: normal peripheral pulses, normal rate Genitourinary: normal external genitalia Skin: no lesions Neurologic/Psychiatric: splunk consultant II-XII grossly normal Laboratory Tests 09/21/18 07:18: White Blood Count 8.5, Red Blood Count 3.77L, Hemoglobin 9.6L, Hematocrit 31.5L , Mean Corpuscular Volume 84, Mean Corpuscular Hemoglobin 25.6L, Mean Corpuscular Hemoglobin Concent 30.6L, Red Cell Distribution Width 18.9H, Platelet Count 218, Mean Platelet Volume 6.4L, Neutrophils (%) (Auto) 76.9H, Lymphocytes (%) (Auto) 15.8L, Monocytes (%) (Auto) 6.2, Eosinophils (%) (Auto) 0.2, Basophils (%) (Auto) 0.8, Sodium Level 136, Potassium Level 4.0, Chloride Level 99, Carbon Dioxide Level 33H, Anion Gap 4L, Blood Urea Nitrogen 10, Creatinine 0.5L, Estimat Glomerular Filtration Rate , Glucose Level 105, Calcium Level 9.1, Magnesium Level 2.1, Pro-B-Type Natriuretic Peptide 9304H Current Medications Medications (Trade) Dose Ordered Sig/Ibrahima Route PRN Reason Start Time Stop Time Status Last Admin Dose Admin Acetaminophen (Tylenol) 650 mg Q4H PRN ORAL Mild Pain (Pain Scale 1-3) 09/18/18 18:00 10/17/18 17:59 Acetaminophen/ Codeine Phosphate (Tylenol #3) 1 tab Q4H PRN ORAL Severe Pain (Pain Scale 7-10) 09/18/18 18:00 09/24/18 17:59 Acetaminophen/ Hydrocodone Bitart ([place] 5/325) 1 tab Q4H PRN ORAL moderate pain 09/18/18 18:00 09/24/18 17:59 Acetazolamide (Diamox) 250 mg Q8HR ORAL 09/19/18 22:00 10/19/18 21:59 09/21/18 05:19 Albuterol/ Ipratropium (Albuterol/ Ipratropium) 3 ml Q4H PRN HHN Shortness of breath 09/18/18 18:00 09/22/18 17:59 09/20/18 21:27 Apixaban (Eliquis) 5 mg BID ORAL 09/19/18 09:00 10/19/18 08:59 09/20/18 08:59 Dextrose (Dextrose 50%) 25 ml Q30M PRN IV Hypoglycemia 09/18/18 18:00 10/17/18 06:59 Dextrose (Dextrose 50%) 50 ml Q30M PRN IV Hypoglycemia 09/18/18 18:00 10/17/18 06:59 Docusate Sodium (Colace) 100 mg TID ORAL 09/19/18 09:00 10/19/18 08:59 09/21/18 09:48 Folic Acid (Folate) 5 mg DAILY ORAL 09/19/18 09:00 10/18/18 09:59 09/21/18 09:48 Iopamidol (Isovue-300 100ml) 100 ml NOW PRN INJ Radiology Procedure 09/19/18 15:15 09/21/18 15:09 Ondansetron HCl (Zofran) 4 mg Q6H PRN IVP Nausea & Vomiting 09/18/18 18:00 10/17/18 17:59 Pantoprazole (Protonix) 40 mg Q12HR ORAL 09/18/18 21:00 10/18/18 20:59 09/21/18 09:48 Polyethylene Glycol (Miralax) 17 gm DAILYPRN PRN ORAL Constipation 09/18/18 18:00 10/18/18 17:59 Prednisone (predniSONE) 40 mg DAILY ORAL 09/21/18 09:00 10/20/18 08:59 09/21/18 09:48 Risperidone (RisperDAL) 1 mg BEDTIME ORAL 09/18/18 21:00 10/17/18 20:59 09/20/18 21:51 Temazepam (Restoril) 15 mg HSPRN PRN ORAL Insomnia 09/18/18 18:00 09/25/18 17:59 09/20/18 00:40 Thiamine HCl (Vitamin B1) 100 mg DAILY ORAL 09/20/18 09:00 10/20/18 08:59 09/21/18 09:48 Mendel Sierra MD Sep 21, 2018 11:13
--- NOTE | 2018-09-21 11:26 | NUR ---
NURSE NOTES: Received room assignment for transfer to [facility] - [id number]. Per Charge Nurse [facility], Jovanna RN will accept pt. Will call when ready to accept.
--- NOTE | 2018-09-21 11:42 | NUR ---
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 97.4 HR 89 RR 20 B/P 124/75 CXR= LEFT HEMOTHORAX IS: PREDNISONE PO ELIQUISE PO BIPAP STEP DOWN STATUS
--- NOTE | 2018-09-21 11:44 | Diagnostic Imaging Report ---
Indication: Opacified left hemithorax seen on recent chest radiograph Technique: Grayscale and duplex images of left chest Comparison: Chest radiograph and chest CT dated 09/21/2018 Findings: Only trace left pleural fluid, insufficient for safe thoracentesis, is demonstrated Impression: Only trace left pleural fluid, insufficient for thoracentesis; no intervention performed. This is also confirmed on chest CT, which indicates the left hemithoracic opacification is due to complete atelectasis of the left lung
[2018-09-21 12:00] VITALS: BP 122/62
--- NOTE | 2018-09-21 12:24 | Nephrology Progress Note ---
Assessment/Plan Problem List: (1) Respiratory failure, acute (2) Hyponatremia (3) Seizure disorder (4) Acute diastolic CHF (congestive heart failure) (5) COPD (chronic obstructive pulmonary disease) (6) Pacemaker Assessment HypoNatremia ? Etiology: depletional / Diuretics / SIADH ... Need more data to pin point etiology Acute respiratory failure on BIPAP- COPD Encephalopathy due to high CO2 Pacemaker UTI Low MCV Anemia Hypoalbuminemia EjFx 55% last admission h/o Atfib Plan Plan; BIPAP as needed- Diamox adjust dose López 3% saline one time given stop lasix IV iron monitor lytes Anemia clinton solumedrol to po prednisone per orders Subjective ROS Limited/Unobtainable: No Constitutional: Reports: malaise Objective Objective Last 24 Hour Vital Signs Date Time Temp Pulse Resp B/P (MAP) Pulse Ox O2 Delivery O2 Flow Rate FiO2 09/21/18 09:00 Room Air 4.0 09/21/18 08:00 97.4 89 20 124/75 (91) 93 09/21/18 08:00 86 09/21/18 07:15 96 Nasal Cannula 2.0 28 09/21/18 07:15 Nasal Cannula 2.0 28 09/21/18 07:15 76 16 Nasal Cannula 2.0 28 09/21/18 04:00 86 09/21/18 04:00 98.5 78 24 112/54 (73) 93 09/21/18 00:00 97.6 79 20 117/75 (89) 95 09/21/18 00:00 86 09/20/18 21:27 94 Nasal Cannula 2.0 28 09/20/18 21:27 80 18 94 Nasal Cannula 2.0 28 09/20/18 21:27 Nasal Cannula 2.0 28 09/20/18 21:27 80 18 Nasal Cannula 2.0 28 09/20/18 21:00 Bi-pap 09/20/18 20:00 98.1 91 21 113/56 (75) 97 09/20/18 20:00 90 09/20/18 16:00 85 09/20/18 16:00 98.3 74 17 130/72 (91) 98 Intake and Output 09/20/18 09/21/18 18:59 06:59 Intake Total 680 ml 60 ml Output Total 600 ml 750 ml Balance 80 ml -690 ml Intake Oral 60 ml Other 680 ml Output Urine Total 600 ml 750 ml Laboratory Tests 09/21/18 07:18: White Blood Count 8.5, Red Blood Count 3.77L, Hemoglobin 9.6L, Hematocrit 31.5L , Mean Corpuscular Volume 84, Mean Corpuscular Hemoglobin 25.6L, Mean Corpuscular Hemoglobin Concent 30.6L, Red Cell Distribution Width 18.9H, Platelet Count 218, Mean Platelet Volume 6.4L, Neutrophils (%) (Auto) 76.9H, Lymphocytes (%) (Auto) 15.8L, Monocytes (%) (Auto) 6.2, Eosinophils (%) (Auto) 0.2, Basophils (%) (Auto) 0.8, Sodium Level 136, Potassium Level 4.0, Chloride Level 99, Carbon Dioxide Level 33H, Anion Gap 4L, Blood Urea Nitrogen 10, Creatinine 0.5L, Estimat Glomerular Filtration Rate , Glucose Level 105, Calcium Level 9.1, Magnesium Level 2.1, Pro-B-Type Natriuretic Peptide 9304H Height (Feet): 5 Weight (Pounds): 184 General Appearance: no apparent distress Cardiovascular: normal rate Respiratory/Chest: decreased breath sounds Abdomen: soft Objective no change Danilo Huber MD Sep 21, 2018 12:24
--- NOTE | 2018-09-21 13:00 | Cardiac Electrophysiology PN ---
Assessment/Plan Assessment/Plan 1. 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 2. Chronic atrial fibrillation. The rate is controlled off any antiarrhythmics. On anticoagulation with Eliquis 5 mg b.i.d. 3. Severe COPD. On Solu-Medrol. 4. Diastolic congestive heart failure. 5. Diabetes. Followed by Dr. Little. 6. Left lung collapse. Going to [facility] Dr. Rigo RICHARDSON RN Subjective Subjective Alert in NAD. Had CT chest. Left thoracentesis cancelled as still was on Xarelto Objective Last 24 Hour Vital Signs Date Time Temp Pulse Resp B/P (MAP) Pulse Ox O2 Delivery O2 Flow Rate FiO2 09/21/18 12:00 97.9 91 22 122/62 (82) 98 09/21/18 09:00 Room Air 4.0 09/21/18 08:00 97.4 89 20 124/75 (91) 93 09/21/18 08:00 86 09/21/18 07:15 96 Nasal Cannula 2.0 28 09/21/18 07:15 Nasal Cannula 2.0 28 09/21/18 07:15 76 16 Nasal Cannula 2.0 28 09/21/18 04:00 86 09/21/18 04:00 98.5 78 24 112/54 (73) 93 09/21/18 00:00 97.6 79 20 117/75 (89) 95 09/21/18 00:00 86 09/20/18 21:27 94 Nasal Cannula 2.0 28 09/20/18 21:27 80 18 94 Nasal Cannula 2.0 28 09/20/18 21:27 Nasal Cannula 2.0 28 09/20/18 21:27 80 18 Nasal Cannula 2.0 28 09/20/18 21:00 Bi-pap 09/20/18 20:00 98.1 91 21 113/56 (75) 97 09/20/18 20:00 90 09/20/18 16:00 85 09/20/18 16:00 98.3 74 17 130/72 (91) 98 Intake and Output 09/20/18 09/21/18 18:59 06:59 Intake Total 680 ml 60 ml Output Total 600 ml 750 ml Balance 80 ml -690 ml Intake Oral 60 ml Other 680 ml Output Urine Total 600 ml 750 ml Laboratory Tests Test 09/21/18 07:18 White Blood Count 8.5 K/UL (4.8-10.8) Red Blood Count 3.77 M/UL (4.20-5.40) L Hemoglobin 9.6 G/DL (12.0-16.0) L Hematocrit 31.5 % (37.0-47.0) L Mean Corpuscular Volume 84 FL (80-99) Mean Corpuscular Hemoglobin 25.6 PG (27.0-31.0) L Mean Corpuscular Hemoglobin Concent 30.6 G/DL (32.0-36.0) L Red Cell Distribution Width 18.9 % (11.6-14.8) H Platelet Count 218 K/UL (150-450) Mean Platelet Volume 6.4 FL (6.5-10.1) L Neutrophils (%) (Auto) 76.9 % (45.0-75.0) H Lymphocytes (%) (Auto) 15.8 % (20.0-45.0) L Monocytes (%) (Auto) 6.2 % (1.0-10.0) Eosinophils (%) (Auto) 0.2 % (0.0-3.0) Basophils (%) (Auto) 0.8 % (0.0-2.0) Sodium Level 136 MMOL/L (136-145) Potassium Level 4.0 MMOL/L (3.5-5.1) Chloride Level 99 MMOL/L (98-107) Carbon Dioxide Level 33 MMOL/L (21-32) H Anion Gap 4 mmol/L (5-15) L Blood Urea Nitrogen 10 mg/dL (7-18) Creatinine 0.5 MG/DL (0.55-1.30) L Estimat Glomerular Filtration Rate mL/min (>60) Glucose Level 105 MG/DL (74-106) Calcium Level 9.1 MG/DL (8.5-10.1) Magnesium Level 2.1 MG/DL (1.8-2.4) Pro-B-Type Natriuretic Peptide 9304 pg/mL (0-125) H Objective HEAD AND NECK: Mild JVD. LUNGS: Coarse rhonchi bilaterally. CARDIOVASCULAR: Shows irregular S1 and S2 with no gallop. ABDOMEN: Soft. EXTREMITIES: No pitting edema. Yohan Milian MD Sep 21, 2018 13:00
--- NOTE | 2018-09-21 13:30 | NUR ---
NURSE NOTES: RN clarified Bipap orders. Per Dr. Sierra - "place on Bipap the whole night and then on and off during day time"
--- NOTE | 2018-09-21 14:05 | NUR ---
RD ASSESSMENT & RECOMMENDATIONS SEE CARE ACTIVITY FOR COMPLETE ASSESSMENT DAILY ESTIMATED NEEDS: Needs based on Pulmonary, Cardiac/ 54kg abw 25-30 kcals/kg 1798-1483 total kcals 1-1.5 g protein/kg 54-81 g total protein 25-30 mL/kg 6974-6522 total fluid mLs NUTRITION DIAGNOSIS: Altered nutrition related lab values R/T clinical condition as evidenced by critically elev pCO2, low pH, elev BNP (9304), elev CO2 (33). CURRENT DIET: CATHY/ mech soft finely chopped PO DIET RECOMMENDATIONS: LOW NA/ texture per SAMPLE CHECKER ADDITIONAL RECOMMENDATIONS: * Monitor BG on prednisone * PO intake w/ Bipap? pt w/ poor intake * Add Ensure BID in b/w meals * Weekly calibrated bed scale wts * SAMPLE CHECKER eval for appropriate texture . .
--- NOTE | 2018-09-21 14:22 | NUR ---
TRANSFER TO FLOOR: Patient transferred to [facility], per Dr. Sierra. Report given to CHAR[facility]TT[facility] Nugent. Pt had no belongings upon transfer.Family informed of transfer. No wounds upon transfer, some redness noted on right heel (covered with optifoam on bilateral heels and sacral for protection). No s/s of acute distress upon transfer.
[2018-09-21] MEDS ORDERED: Tylenol #3 tab (300mg/30mg) ORAL PRN (14:24)
[2018-09-21] MEDS ORDERED: Albuterol/Ipratropium 3ml neb HHN PRN (14:25)
[2018-09-21] MEDS ORDERED: Miralax 17gm pkt ORAL PRN (14:25)
[2018-09-21] MEDS ORDERED: Isovue-300 100ml vial INJ PRN (14:26)
[2018-09-21] MEDS ORDERED: HYDROcodone/Acetamin 5/325 tab ORAL PRN (14:27)
--- NOTE | 2018-09-21 15:00 | NUR ---
NURSE NOTES: received pt from 2E, awake, confused, vital signs stable, no co pain, no SOB, O2 4l,skin warm and dry to touch, López catheter, bed in low position, call light within reach.
[2018-09-21 16:00] VITALS: BP 139/65
--- NOTE | 2018-09-21 18:35 | Internal Med Progress Note ---
Subjective Date of Service: Sep 21, 2018 Physician Name Juan Dutta Attending Physician Yonathan Mendoza MD Current Medications Medications (Trade) Dose Ordered Sig/Ibrahima Route PRN Reason Start Time Stop Time Status Last Admin Dose Admin Acetaminophen (Tylenol) 650 mg Q4H PRN ORAL Mild Pain (Pain Scale 1-3) 09/21/18 14:23 10/21/18 14:22 Acetaminophen/ Codeine Phosphate (Tylenol #3) 1 tab Q4H PRN ORAL Severe Pain (Pain Scale 7-10) 09/21/18 14:24 09/28/18 14:23 Acetaminophen/ Hydrocodone Bitart ([place] 5/325) 1 tab Q4H PRN ORAL moderate pain 09/21/18 14:27 09/28/18 14:26 Acetazolamide (Diamox) 250 mg Q8HR ORAL 09/21/18 22:00 10/19/18 21:59 Albuterol/ Ipratropium (Albuterol/ Ipratropium) 3 ml Q4H PRN HHN Shortness of breath 09/21/18 14:25 09/26/18 14:24 Apixaban (Eliquis) 5 mg BID ORAL 09/21/18 18:00 10/19/18 08:59 09/21/18 17:30 Dextrose (Dextrose 50%) 25 ml Q30M PRN IV Hypoglycemia 09/21/18 14:30 10/17/18 06:59 Dextrose (Dextrose 50%) 50 ml Q30M PRN IV Hypoglycemia 09/21/18 14:30 10/17/18 06:59 Docusate Sodium (Colace) 100 mg TID ORAL 09/21/18 18:00 10/19/18 08:59 09/21/18 17:30 Folic Acid (Folate) 5 mg DAILY ORAL 09/22/18 09:00 10/18/18 09:59 Iopamidol (Isovue-300 100ml) 100 ml ONCE PRN INJ PROCEDURE 09/21/18 14:26 09/21/18 23:59 Ondansetron HCl (Zofran) 4 mg Q6H PRN IVP Nausea & Vomiting 09/21/18 14:24 10/21/18 14:23 Pantoprazole (Protonix) 40 mg Q12HR ORAL 09/21/18 21:00 10/18/18 20:59 Polyethylene Glycol (Miralax) 17 gm DAILYPRN PRN ORAL Constipation 09/21/18 14:25 10/21/18 14:24 Prednisone (predniSONE) 40 mg DAILY ORAL 09/22/18 09:00 10/20/18 08:59 Risperidone (RisperDAL) 1 mg BEDTIME ORAL 09/21/18 21:00 10/17/18 20:59 Temazepam (Restoril) 15 mg HSPRN PRN ORAL Insomnia 09/21/18 18:00 09/25/18 17:59 Thiamine HCl (Vitamin B1) 100 mg DAILY ORAL 09/22/18 09:00 10/20/18 08:59 Allergies: Coded Allergies: PIPERACILLIN (Unverified Allergy, Unknown, 05/21/18) tolerates cephalosporins TAZOBACTAM (Unverified Allergy, Unknown, 03/10/18) ROS Limited/Unobtainable: Yes Subjective 77 YO F admitted for respiratory distress. Now left lung opacification. Cover for Int Med-DR Mendoza. Transferred to [facility] due to increasing respiratory distress. Objective Last Vital Signs Date Time Temp Pulse Resp B/P (MAP) Pulse Ox O2 Delivery O2 Flow Rate FiO2 09/21/18 16:00 Room Air 4.0 09/21/18 16:00 98.1 90 20 139/65 (89) 93 09/21/18 14:26 40 Laboratory Tests Test 09/21/18 07:18 White Blood Count 8.5 K/UL (4.8-10.8) Red Blood Count 3.77 M/UL (4.20-5.40) L Hemoglobin 9.6 G/DL (12.0-16.0) L Hematocrit 31.5 % (37.0-47.0) L Mean Corpuscular Volume 84 FL (80-99) Mean Corpuscular Hemoglobin 25.6 PG (27.0-31.0) L Mean Corpuscular Hemoglobin Concent 30.6 G/DL (32.0-36.0) L Red Cell Distribution Width 18.9 % (11.6-14.8) H Platelet Count 218 K/UL (150-450) Mean Platelet Volume 6.4 FL (6.5-10.1) L Neutrophils (%) (Auto) 76.9 % (45.0-75.0) H Lymphocytes (%) (Auto) 15.8 % (20.0-45.0) L Monocytes (%) (Auto) 6.2 % (1.0-10.0) Eosinophils (%) (Auto) 0.2 % (0.0-3.0) Basophils (%) (Auto) 0.8 % (0.0-2.0) Sodium Level 136 MMOL/L (136-145) Potassium Level 4.0 MMOL/L (3.5-5.1) Chloride Level 99 MMOL/L (98-107) Carbon Dioxide Level 33 MMOL/L (21-32) H Anion Gap 4 mmol/L (5-15) L Blood Urea Nitrogen 10 mg/dL (7-18) Creatinine 0.5 MG/DL (0.55-1.30) L Estimat Glomerular Filtration Rate mL/min (>60) Glucose Level 105 MG/DL (74-106) Calcium Level 9.1 MG/DL (8.5-10.1) Magnesium Level 2.1 MG/DL (1.8-2.4) Pro-B-Type Natriuretic Peptide 9304 pg/mL (0-125) H Intake and Output 09/20/18 09/21/18 19:00 07:00 Intake Total 680 ml 60 ml Output Total 600 ml 750 ml Balance 80 ml -690 ml Intake Oral 60 ml Other 680 ml Output Urine Total 600 ml 750 ml Objective PHYSICAL EXAMINATION: GENERAL: The patient is a well-developed and well-nourished white female, who is in moderate respiratory distress. HEENT: Eyes, pupils are equal and responsive to light and accommodation. Extraocular movements are intact. NECK: Supple without lymphadenopathy. CHEST: Few rales in bilateral bases, otherwise, Lungs are clear to auscultation bilaterally without wheezes CARDIOVASCULAR: Regular rhythm and rate. S1 and S2 normal without murmurs, rubs, or gallops. ABDOMEN: Soft, nontender, and nondistended. Positive bowel sounds. No evidence of hepatosplenomegaly. Currently, no rebound or guarding noted. EXTREMITIES: Negative for clubbing, cyanosis, or edema. RECTAL/GENITAL: Refused. NEUROLOGIC: Cranial nerves II through XII are grossly intact without focal deficits. Motor strength is 5/5 bilaterally. Deep tendon reflexes are 2+ plantar. Assessment/Plan Assessment/Plan ASSESSMENT: This is a 77-year-old white female with: 1. Shortness of breath. 2. Hypoxia. 3. Acute on chronic congestive heart failure. 4. Atrial flutter. 5. Hyponatremia. 6. Chronic obstructive pulmonary disease. 7. Coronary artery disease. 8. Hypertension. 9. Seizure disorder. 10. Paranoid schizophrenia. 11. Intraventricular pacemaker 12. left lung opacification-collapse per CT TREATMENT: 1. Shortness of breath/congestive heart failure. Cardiology consultation has been obtained with Dr. Milian. The patient is currently receiving intravenous Lasix. We will follow recommendation of Cardiology. BNP is elevated at over greater than 5000. An echocardiogram is pending. 2. Atrial flutter. Continue Eliquis as above. 3. Hyponatremia. The patient is currently receiving intravenous fluids. 4. Chronic obstructive pulmonary disease. Continue DuoNeb nebulized as above. The patient was initially placed on BiPAP in the emergency room. A Pulmonary consultation has been obtained with Dr. Mendel Sierra. 5. Hypertension. Continue Lasix as above. 6. Seizure disorder. The patient is currently off antiseizure medication. 7. Paranoid schizophrenia. Continue Risperdal as above. Juan Dutta MD Sep 21, 2018 18:35
--- NOTE | 2018-09-21 19:15 | NUR ---
NURSE NOTES: Pt report received from Jovanna OVALLES. Pt is resting in bed and appears to be in no distress. Pt is alert and oriented times 3. Pt has a guest request runner on, active and is working. Pt appears to be in no cardiac distress as the moment. Pt has a Nasal Canula running 4L O2 and is saturating fine at 100%. Pt appears to not be in any respiratory distress at the moment. Pt has taken out IV lines (Right AC 24G and RW 20G). All safety precautions are in place, such as bed is in lowest position, safety brakes are engaged, side rails are padded and up times 3, call light is within easy reach, bed alarm is active. Will continue plan of care. Addendum: 09/22/18 at 0131 by ARNOLDO LOWERY RN Pt also has a folly catheter that is patent and is draining to gravity. No abnormalities noted.
--- NOTE | 2018-09-21 19:31 | NUR ---
HAND-OFF: Report given to BEVERLEY OVALLES.
[2018-09-21 20:00] VITALS: BP 149/67
--- NOTE | 2018-09-21 21:24 | NUR ---
NURSE NOTES: At 2123, Pt was found by CHARLETTE Craven, RT Ramírez, and optical element coater Francine. Pt was found with altered mental status, unresponsive to deep sternal rub, pale face, and diaphoretic. Intitial Vital Signs were; Blood pressure 125/55, respiration 20, Heart Rate 101, auxiliary temperature of 97 F with a fingure stick blood sugar of 182. At 2124, Rapid response team was established with Trixie RN, Herber RN, Francine RN, Desiree RT, Rossana RN, Niru RT, and Stephanie RN. PRN BiPAP was already established by RT aRmírez with reported settings of 15/5 with a O2 saturation of 100%. At 2129 a stat ABG was ordered by MD Rigo Oglesby. RT Ramírez Reported pertinent results of PH 7.14, CO2 114, PAO2 57, HCO3 38, Saturation of 80%. At 2149, MD Rigo Oglesby was contacted. RN reported the current situation of the Pt, initial and repeated Vital signs, Blood sugar (finger stick), medications given, the Pts Code status, ABGs, and how the Pt is currently on the BiPAP. MD Rigo Oglesby stated he does not want to order anything, but to increase the BiPAP to 25/5. Will carry out orders. Addendum: 09/22/18 at 0722 by HERBER LOWERY RN "RT Ramírez Reported pertinent results of PH 7.14, CO2 114, PAO2 57, HCO3 38, Saturation of 80%." as read from ABGs receipt
--- NOTE | 2018-09-21 21:25 | NUR ---
RAPID RESPONSE: See Rapid Response sheet which remains on paper.
--- NOTE | 2018-09-21 21:55 | NUR ---
NURSE NOTES: Pt is now responsive to pain and verbal response
--- NOTE | 2018-09-21 22:12 | NUR ---
RESPIRATORY NOTE: Found pt. unresponsive to verbal stimuli and chest rubs, slightly diaphoretic. Charged nurse was called. Placed pt. on bipap with ordered settings 15/5, 100% fio2. Pulse ox reading of 77% while on bipap. Charged nurse called rapid response. ABG was drawn. called and notified of abg results, new bipap settings 25/5
[2018-09-22] VITALS (15 sets, daily range): BP systolic 108–165; BP diastolic 35–101
[2018-09-22 04:29] LABS: BASOPHILS % (AUTO) 0.8 % (0.0-2.0); EOSINOPHILS % (AUTO) 0.1 % (0.0-3.0); HEMATOCRIT 30.2 % (37.0-47.0); HEMOGLOBIN 9.4 G/DL (12.0-16.0); LYMPHOCYTES % (AUTO) 13.2 % (20.0-45.0); MEAN CORPUSCULAR VOLUME 84 FL (80-99); MONOCYTES % (AUTO) 6.6 % (1.0-10.0); NEUTROPHILS % (AUTO) 79.3 % (45.0-75.0); PLATELET COUNT 231 K/UL (150-450); RED BLOOD COUNT 3.61 M/UL (4.20-5.40); RED CELL DISTRIBUTION WIDTH 19.2 % (11.6-14.8); WHITE BLOOD COUNT 8.6 K/UL (4.8-10.8)
[2018-09-22 05:17] LABS: ALANINE AMINOTRANSFERASE 12 U/L (12-78); ALBUMIN 2.5 G/DL (3.4-5.0); ALBUMIN/GLOBULIN RATIO 0.8 (1.0-2.7); ALKALINE PHOSPHATASE 50 U/L (46-116); ANION GAP 3 mmol/L (5-15); ASPARTATE AMINO TRANSFERASE 11 U/L (15-37); BILIRUBIN,TOTAL 0.3 MG/DL (0.2-1.0); BLOOD UREA NITROGEN 10 mg/dL (7-18); CALCIUM 8.2 MG/DL (8.5-10.1); CARBON DIOXIDE 35 MMOL/L (21-32); CHLORIDE 100 MMOL/L (98-107); CREATININE 0.5 MG/DL (0.55-1.30); POTASSIUM 3.6 MMOL/L (3.5-5.1); SODIUM 138 MMOL/L (136-145)
--- NOTE | 2018-09-22 06:23 | NUR ---
NURSE NOTES: Spoke with Cyrus Talamantes in [place] to MD Gonzalez procedure (Debridement of Necrotic Sacral Decubitus Ulcer) and for permission to have a telephone consent. Cyrus stated that he would like to Speak to MD Gonzalez before giving consent. Addendum: 09/22/18 at 0630 by ARNOLDO LOWERY RN Incorrect Pt.
--- NOTE | 2018-09-22 06:35 | NUR ---
RESPIRATORY NOTE: Received pt off Bipap and on 4L NC 36% FiO2, saturates at 97%. Pt is awake, alert and can follow simple commands, tachypneic RR 24bpm but no SOB or resp distress noted. Pt refused to be back on Bipap right now, she stated she would be back on after breakfast. No redness or skin breakdown noted on pt face, Bipap is standby and plugged into the red outlet, ambu bag is at bedside. Will continue the plan of care and monitor pt.
--- NOTE | 2018-09-22 06:39 | General Progress Note ---
Assessment/Plan Problem List: (1) COPD (chronic obstructive pulmonary disease) ICD Codes: J44.9 - Chronic obstructive pulmonary disease, unspecified SNOMED: 65951914 Qualifiers: Qualified Codes: J44.9 - Chronic obstructive pulmonary disease, unspecified (2) Hyponatremia ICD Codes: E87.1 - Hyponatremia SNOMED: 88862853 (3) HTN (hypertension) ICD Codes: I10 - Hypertension SNOMED: 54842176 Assessment: Na corrected no evidence of adrenal insufficiency or hypothyroidism continue current management Subjective Allergies: Coded Allergies: PIPERACILLIN (Unverified Allergy, Unknown, 05/21/18) tolerates cephalosporins TAZOBACTAM (Unverified Allergy, Unknown, 03/10/18) All Systems: reviewed and negative except above Subjective events noted Item Value Date Time Glucose Level 85 MG/DL 09/22/18 0320 Glucose Level 105 MG/DL 09/21/18 0718 Objective Last 24 Hour Vital Signs Date Time Temp Pulse Resp B/P (MAP) Pulse Ox O2 Delivery O2 Flow Rate FiO2 09/22/18 05:14 71 18 96 Facial 40 09/22/18 04:00 Nasal Cannula 2.0 09/22/18 04:00 98.0 80 20 122/67 (85) 98 09/22/18 04:00 70 09/22/18 00:58 65 14 99 Facial 80 09/22/18 00:00 Bi-pap 10.0 09/22/18 00:00 97.9 73 17 129/67 (87) 100 09/22/18 00:00 70 09/21/18 22:58 76 20 95 Facial 100 09/21/18 22:07 81 16 92 Full Face 100 09/21/18 20:00 97.9 90 26 149/67 (94) 95 09/21/18 20:00 101 09/21/18 20:00 Room Air 4.0 09/21/18 19:07 94 Nasal Cannula 2.0 28 09/21/18 19:07 Nasal Cannula 2.0 28 09/21/18 19:06 90 18 Nasal Cannula 2.0 28 09/21/18 16:00 Room Air 4.0 09/21/18 16:00 98.1 90 20 139/65 (89) 93 09/21/18 16:00 91 09/21/18 14:26 91 32 96 Facial 40 09/21/18 12:00 81 09/21/18 12:00 97.9 91 22 122/62 (82) 98 09/21/18 09:00 Room Air 4.0 09/21/18 08:00 97.4 89 20 124/75 (91) 93 09/21/18 08:00 86 09/21/18 07:15 96 Nasal Cannula 2.0 28 09/21/18 07:15 Nasal Cannula 2.0 28 09/21/18 07:15 76 16 Nasal Cannula 2.0 28 Intake and Output 09/21/18 09/22/18 19:00 07:00 Intake Total 80 ml Output Total 950 ml 400 ml Balance -870 ml -400 ml Intake Oral 80 ml Output Urine Total 950 ml 400 ml Laboratory Tests 09/21/18 07:18: White Blood Count 8.5, Red Blood Count 3.77L, Hemoglobin 9.6L, Hematocrit 31.5L , Mean Corpuscular Volume 84, Mean Corpuscular Hemoglobin 25.6L, Mean Corpuscular Hemoglobin Concent 30.6L, Red Cell Distribution Width 18.9H, Platelet Count 218, Mean Platelet Volume 6.4L, Neutrophils (%) (Auto) 76.9H, Lymphocytes (%) (Auto) 15.8L, Monocytes (%) (Auto) 6.2, Eosinophils (%) (Auto) 0.2, Basophils (%) (Auto) 0.8, Sodium Level 136, Potassium Level 4.0, Chloride Level 99, Carbon Dioxide Level 33H, Anion Gap 4L, Blood Urea Nitrogen 10, Creatinine 0.5L, Estimat Glomerular Filtration Rate , Glucose Level 105, Calcium Level 9.1, Magnesium Level 2.1, Pro-B-Type Natriuretic Peptide 9304H 09/21/18 21:30: Arterial Blood pH 7.142*L, Arterial Blood Partial Pressure CO2 114.0*H, Arterial Blood Partial Pressure O2 57.0L, Arterial Blood HCO3 38.1H, Arterial Blood Oxygen Saturation 80.1*L, Arterial Blood Base Excess 6.1H, Ian Test Positive 09/21/18 23:07: Arterial Blood pH 7.245*L, Arterial Blood Partial Pressure CO2 80.9*H, Arterial Blood Partial Pressure O2 79.0, Arterial Blood HCO3 34.3H, Arterial Blood Oxygen Saturation 93.2L, Arterial Blood Base Excess 5.3H, Ian Test Positive 09/22/18 03:20: White Blood Count 8.6, Red Blood Count 3.61L, Hemoglobin 9.4L, Hematocrit 30.2L , Mean Corpuscular Volume 84, Mean Corpuscular Hemoglobin 25.9L, Mean Corpuscular Hemoglobin Concent 31.0L, Red Cell Distribution Width 19.2H, Platelet Count 231, Mean Platelet Volume 6.2L, Neutrophils (%) (Auto) 79.3H, Lymphocytes (%) (Auto) 13.2L, Monocytes (%) (Auto) 6.6, Eosinophils (%) (Auto) 0.1, Basophils (%) (Auto) 0.8, Sodium Level 138, Potassium Level 3.6, Chloride Level 100, Carbon Dioxide Level 35H, Anion Gap 3L, Blood Urea Nitrogen 10, Creatinine 0.5L, Estimat Glomerular Filtration Rate , Glucose Level 85, Calcium Level 8.2L, Magnesium Level 1.8, Pro-B-Type Natriuretic Peptide 7412H, Phosphorus Level 5.0H, Total Bilirubin 0.3, Aspartate Amino Transf (AST/SGOT) 11L, Alanine Aminotransferase (ALT/SGPT) 12, Alkaline Phosphatase 50, Total Protein 5.7L, Albumin 2.5L, Globulin 3.2, Albumin/Globulin Ratio 0.8L Height (Feet): 5 Weight (Pounds): 160 General Appearance: no apparent distress Neck: normal alignment Cardiovascular: normal rate Respiratory/Chest: lungs clear Abdomen: normal bowel sounds Pelvis: normal external exam Objective Current Medications Medications (Trade) Dose Ordered Sig/Ibrahima Route PRN Reason Start Time Stop Time Status Last Admin Dose Admin Acetaminophen (Tylenol) 650 mg Q4H PRN ORAL Mild Pain (Pain Scale 1-3) 09/21/18 14:23 10/21/18 14:22 Acetaminophen/ Codeine Phosphate (Tylenol #3) 1 tab Q4H PRN ORAL Severe Pain (Pain Scale 7-10) 09/21/18 14:24 09/28/18 14:23 Acetaminophen/ Hydrocodone Bitart ([place] 5/325) 1 tab Q4H PRN ORAL moderate pain 09/21/18 14:27 09/28/18 14:26 Acetazolamide (Diamox) 250 mg Q8HR ORAL 09/21/18 22:00 10/19/18 21:59 09/22/18 05:59 Albuterol/ Ipratropium (Albuterol/ Ipratropium) 3 ml Q4H PRN HHN Shortness of breath 09/21/18 14:25 09/26/18 14:24 Apixaban (Eliquis) 5 mg BID ORAL 09/21/18 18:00 10/19/18 08:59 09/21/18 17:30 Dextrose (Dextrose 50%) 25 ml Q30M PRN IV Hypoglycemia 09/21/18 14:30 10/17/18 06:59 Dextrose (Dextrose 50%) 50 ml Q30M PRN IV Hypoglycemia 09/21/18 14:30 10/17/18 06:59 Docusate Sodium (Colace) 100 mg TID ORAL 09/21/18 18:00 10/19/18 08:59 09/21/18 17:30 Folic Acid (Folate) 5 mg DAILY ORAL 09/22/18 09:00 10/18/18 09:59 Ondansetron HCl (Zofran) 4 mg Q6H PRN IVP Nausea & Vomiting 09/21/18 14:24 10/21/18 14:23 Pantoprazole (Protonix) 40 mg Q12HR ORAL 09/21/18 21:00 10/18/18 20:59 09/21/18 20:21 Polyethylene Glycol (Miralax) 17 gm DAILYPRN PRN ORAL Constipation 09/21/18 14:25 10/21/18 14:24 Prednisone (predniSONE) 40 mg DAILY ORAL 09/22/18 09:00 10/20/18 08:59 Risperidone (RisperDAL) 1 mg BEDTIME ORAL 09/21/18 21:00 10/17/18 20:59 09/21/18 20:21 Temazepam (Restoril) 15 mg HSPRN PRN ORAL Insomnia 09/21/18 18:00 09/25/18 17:59 09/21/18 20:55 Thiamine HCl (Vitamin B1) 100 mg DAILY ORAL 09/22/18 09:00 10/20/18 08:59 Daniel Little MD Sep 22, 2018 06:39
--- NOTE | 2018-09-22 07:30 | NUR ---
HAND-OFF: Report given to Jovanna OVALLES.
--- NOTE | 2018-09-22 08:10 | NUR ---
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
[2018-09-22] MEDS: Docusate 100mg/10ml Liq ORAL SCH ×3 (08:40→17:23)
[2018-09-22] MEDS: Eliquis 2.5mg tablet ORAL SCH ×2 (08:41→17:23)
--- NOTE | 2018-09-22 08:53 | Cardiology Report ---
APPROVED REPORT EXAM: Two-dimensional and M-mode echocardiogram with Doppler and color Doppler. INDICATION LV FUNCTION M-Mode DIMENSIONS IVSd1.7 (0.7-1.1cm)Left Atrium (MM)4.1 (1.6-4.0cm) LVDd3.9 (3.5-5.6cm)Aortic Root3.6 (2.0-3.7cm) PWd1.3 (0.7-1.1cm)Aortic Cusp Exc.1.4 (1.5-2.0cm) IVSs1.9 cm LVDs2.0 (2.5-4.0cm) PWs1.6 cm Other Information . Normal left ventricular chamber size, systolic function and wall motion to extend visualized . Left ventricular ejection fraction estimated to be 55%. Mild left ventricular hypertrophy. Medium posterior pericardial effusion . Left atrial size at upper limits of normal. Right cardiac chamber sizes are within normal limits. Aortic valve calcification with decreased cusp excursion c/w aortic stenosis. Thickened mitral valve leaflets with normal excursion. Mitral annulus and aortic root calcification. Normal pulmonic valve structure. Normal tricuspid valve structure. IVC at normal size without physiologic collapse. A color flow and spectral Doppler study was performed and revealed: No aortic insufficency . Peak aortic valve gradient of 15 mm Hg and a mean of 7 mmHg. Aortic valve area 1.6 cm2 calculated by continuity equation. Mild mitral regurgitation. Mitral inflow velocities indicates possible pseudo normalization pattern implying moderately elevated left atrial pressure (Grade II ) Mild tricuspid regurgitation. Tricuspid systolic velocities suggests peak right ventricular systolic pressure of 32 mmHg.
[2018-09-22] MEDS ORDERED: Thiamine 100mg tab ORAL SCH (09:00)
--- NOTE | 2018-09-22 09:00 | NUR ---
RADIOLOGY DEPT., CHEST X-RAY COMPLETED.-P.DYE
--- NOTE | 2018-09-22 09:13 | Diagnostic Imaging Report ---
Indication: Dyspnea Technique: One view of the chest Comparison: 09/21/2018 Findings: There is persistent complete opacification of left hemidiaphragm, previously demonstrated to be related to complete left lung atelectasis. There is associated leftward mediastinal shift. There is persistent and perhaps slightly increased infiltrate in the right perihilar region. Impression: Persistent complete opacification of left hemidiaphragm, previously demonstrated on cross-sectional images to be complete left lung atelectasis Persistent and perhaps slightly increased right perihilar infiltrate
--- NOTE | 2018-09-22 09:30 | NUR ---
PT NOTE Rapid response called last night for patient due to patient found unresponsive. Patient awake and alert this morning, on Bipap, cleared by Jovanna OVALLES for bed exercises. Attempted to see patient for PT treatment, patient declining to participate with PT, states that her legs hurt when she moves them. Jovanna OVALLES notified, will follow.
--- NOTE | 2018-09-22 10:56 | Pulmonolgy Critical Care Note ---
Critical Care - Asmt/Plan Problems: (1) Collapse of left lung (2) Respiratory failure, acute (3) Atrial fibrillation with RVR (4) Hyponatremia (5) COPD (chronic obstructive pulmonary disease) (6) Anemia, chronic disease Respiratory: monitor respiratory rate, adjust FIO2, CXR Cardiac: continue to monitor HR/BP Renal: F/U I&O, check electrolytes Infectious Disease: check cultures, continue antibiotics Gastrointestinal: hold feedings Hematologic: monitor H/H, transfuse if hgb<8.5 Neurologic: PRN Ativan, keep patient comfortable Prophylaxis: Protonix Notes Reviewed: principal cyber engineer, renal Discussed with: nurses, piano case and bench assemblerresidential case manager - Objective Last 24 Hour Vital Signs Date Time Temp Pulse Resp B/P (MAP) Pulse Ox O2 Delivery O2 Flow Rate FiO2 09/22/18 10:46 75 19 98 09/22/18 08:39 76 16 96 Facial 40 09/22/18 08:00 Bi-pap 09/22/18 08:00 97.5 84 18 118/58 (78) 96 09/22/18 08:00 85 09/22/18 07:48 79 15 97 Facial 40 09/22/18 06:30 97 Nasal Cannula 4.0 36 09/22/18 06:30 74 24 97 09/22/18 06:30 Nasal Cannula 4.0 36 09/22/18 05:14 71 18 96 Facial 40 09/22/18 04:00 Nasal Cannula 2.0 09/22/18 04:00 98.0 80 20 122/67 (85) 98 09/22/18 04:00 70 09/22/18 00:58 65 14 99 Facial 80 09/22/18 00:00 Bi-pap 10.0 09/22/18 00:00 97.9 73 17 129/67 (87) 100 09/22/18 00:00 70 09/21/18 22:58 76 20 95 Facial 100 09/21/18 22:07 81 16 92 Full Face 100 09/21/18 20:00 97.9 90 26 149/67 (94) 95 09/21/18 20:00 101 09/21/18 20:00 Room Air 4.0 09/21/18 19:07 94 Nasal Cannula 2.0 28 09/21/18 19:07 Nasal Cannula 2.0 28 09/21/18 19:06 90 18 Nasal Cannula 2.0 28 09/21/18 16:00 Room Air 4.0 09/21/18 16:00 98.1 90 20 139/65 (89) 93 09/21/18 16:00 91 09/21/18 14:26 91 32 96 Facial 40 09/21/18 12:00 81 09/21/18 12:00 97.9 91 22 122/62 (82) 98 Status: awake Condition: critical HEENT: atraumatic Lungs: rales, rhonchi Heart: HR/BP stable Abdomen: soft, non-tender, feeding tube Extremities: no C/C/E Critical Care - Subjective Interval Events: pts left lung continues to be collapsed. pt agreed with intubation and bronchoscopy. FI02: 40 Vent Support Mode: BiLevel Sputum Amount: None I&O: Intake and Output 09/21/18 09/22/18 18:59 06:59 Intake Total 80 ml Output Total 950 ml 400 ml Balance -870 ml -400 ml Intake Oral 80 ml Output Urine Total 950 ml 400 ml CXR: left lung collapse Labs: Laboratory Tests Test 09/21/18 21:30 09/21/18 23:07 09/22/18 03:20 09/22/18 08:18 Arterial Blood pH 7.142 (7.350-7.450) 7.245 (7.350-7.450) 7.295 (7.350-7.450) Arterial Blood Partial Pressure CO2 114.0 mmHg (35.0-45.0) *H 80.9 mmHg (35.0-45.0) *H 69.5 mmHg (35.0-45.0) *H Arterial Blood Partial Pressure O2 57.0 mmHg (75.0-100.0) L 79.0 mmHg (75.0-100.0) 79.3 mmHg (75.0-100.0) Arterial Blood HCO3 38.1 mmol/L (22.0-26.0) H 34.3 mmol/L (22.0-26.0) H 33.0 mmol/L (22.0-26.0) H Arterial Blood Oxygen Saturation 80.1 % (95-100) *L 93.2 % (95-100) L 94.1 % (95-100) L Arterial Blood Base Excess 6.1 (-2-2) H 5.3 (-2-2) H 5.0 (-2-2) H Ian Test Positive Positive Positive White Blood Count 8.6 K/UL (4.8-10.8) Red Blood Count 3.61 M/UL (4.20-5.40) L Hemoglobin 9.4 G/DL (12.0-16.0) L Hematocrit 30.2 % (37.0-47.0) L Mean Corpuscular Volume 84 FL (80-99) Mean Corpuscular Hemoglobin 25.9 PG (27.0-31.0) L Mean Corpuscular Hemoglobin Concent 31.0 G/DL (32.0-36.0) L Red Cell Distribution Width 19.2 % (11.6-14.8) H Platelet Count 231 K/UL (150-450) Mean Platelet Volume 6.2 FL (6.5-10.1) L Neutrophils (%) (Auto) 79.3 % (45.0-75.0) H Lymphocytes (%) (Auto) 13.2 % (20.0-45.0) L Monocytes (%) (Auto) 6.6 % (1.0-10.0) Eosinophils (%) (Auto) 0.1 % (0.0-3.0) Basophils (%) (Auto) 0.8 % (0.0-2.0) Sodium Level 138 MMOL/L (136-145) Potassium Level 3.6 MMOL/L (3.5-5.1) Chloride Level 100 MMOL/L (98-107) Carbon Dioxide Level 35 MMOL/L (21-32) H Anion Gap 3 mmol/L (5-15) L Blood Urea Nitrogen 10 mg/dL (7-18) Creatinine 0.5 MG/DL (0.55-1.30) L Estimat Glomerular Filtration Rate mL/min (>60) Glucose Level 85 MG/DL (74-106) Calcium Level 8.2 MG/DL (8.5-10.1) L Phosphorus Level 5.0 MG/DL (2.5-4.9) H Magnesium Level 1.8 MG/DL (1.8-2.4) Total Bilirubin 0.3 MG/DL (0.2-1.0) Aspartate Amino Transf (AST/SGOT) 11 U/L (15-37) L Alanine Aminotransferase (ALT/SGPT) 12 U/L (12-78) Alkaline Phosphatase 50 U/L (46-116) Pro-B-Type Natriuretic Peptide 7412 pg/mL (0-125) H Total Protein 5.7 G/DL (6.4-8.2) L Albumin 2.5 G/DL (3.4-5.0) L Globulin 3.2 g/dL Albumin/Globulin Ratio 0.8 (1.0-2.7) L Mendel Sierra MD Sep 22, 2018 10:56
[2018-09-22] MEDS ORDERED: Propofol 200mg/20ml IV ONE (11:45)
--- NOTE | 2018-09-22 12:31 | NUR ---
NURSE NOTES: pt transferred to ICU as ordered, report given to LUIZ OVALLES.
--- NOTE | 2018-09-22 12:45 | NUR ---
NURSE NOTES: Report received from Jovanna OVALLES. Pt alert and oriented x 2-3, confused and forgetful at times. Pt connected to environmental monitoring specialist, a fib/a flutter. Pt on bipap 25/5 40%. López noted and intact. RW 22G heplock noted and intact. Safety measures in place with bed locked and in lowest position, side rails with pads x3 up and bed alarm on. Will continue to monitor and continue plan of care.
--- NOTE | 2018-09-22 12:45 | NUR ---
RESPIRATORY NOTE: Pt was oral intubated with ETT 7.5 @22cm lips line, secured by anchor fast per ER doctor. Vent settings:AC 16-600ml-55% FiO2, no peep per Dr. Sierra's order. Pt is sedated, and have soft bilateral wrist restraints on to prevent self- extubation. Pt is resting comfortably in bed, no SOB or resp distress noted. Vent circuits and suction tube are secured and out of the way. Alarms are set and audible, vent is plugged into the red outlet, ambu bag is at bedside. Will continue to monitor.
[2018-09-22] MEDS ORDERED: Albuterol/Ipratropium 3ml neb HHN PRN (12:48)
[2018-09-22] MEDS ORDERED: Miralax 17gm pkt ORAL PRN (12:50)
[2018-09-22] MEDS ORDERED: Tylenol #3 tab (300mg/30mg) ORAL PRN (12:52)
[2018-09-22] MEDS ORDERED: HYDROcodone/Acetamin 5/325 tab ORAL PRN (12:52)
--- NOTE | 2018-09-22 13:20 | NUR ---
NURSE NOTES: Pt orally intubated by Dr Victoria. Pt ETT 7.5, 22cm lipline, AC 16, Tv 600, 55% fiO2, 0 PEEP. VSS. No acute distress. Will continue to monitor.
--- NOTE | 2018-09-22 13:25 | Diagnostic Imaging Report ---
Indication: Post intubation Technique: One view of the chest Comparison: 5 hours earlier Findings: Interim endotracheal intubation, endotracheal tube tip in good position projecting approximately 3 cm above the ramesh. Left hemithorax remains completely opacified. Right lung and pleural space are clear. Impression: Satisfactory endotracheal intubation Persistent complete opacification of the left hemithorax
--- NOTE | 2018-09-22 13:36 | NUR ---
RADIOLOGY DEPT., CHEST X-RAY FOR ETT PLMT COMPLETED.-P.DYE
[2018-09-22] MEDS: LORazepam Inj 2mg/ml 1ml IV PRN ×2 (13:48→21:01)
--- NOTE | 2018-09-22 14:34 | NUR ---
RESPIRATORY NOTE: Pt is biting the vent, bite block in place to prevent tube bitting. Titrated FiO2 down to 45% post ABG result. RN Nikia made aware. No SOB, or resp distress noted.
--- NOTE | 2018-09-22 14:39 | Emergency Room Report ---
History of Present Illness General Chief Complaint: Dyspnea/Respdistress Source: Medical Record, EMS Present Illness Allergies: Coded Allergies: PIPERACILLIN (Unverified Allergy, Unknown, 05/21/18) tolerates cephalosporins TAZOBACTAM (Unverified Allergy, Unknown, 03/10/18) Patient History Now: No Nursing Documentation-PMH Hx Cardiac Problems: Yes Hx Hypertension: Yes Hx Pacemaker: Yes - left chest Hx Asthma: No Hx COPD: Yes Hx Diabetes: No Hx Cancer: No Hx Gastrointestinal Problems: Yes - dysphagia ,oropharyngeal phase Hx Dialysis: No Hx Neurological Problems: Yes - insomnia Hx Cerebrovascular Accident: Yes Hx Dementia: Yes Hx Seizures: Yes Hx Epilepsy: Yes Hx Tremors: Yes Hx Vertigo: Yes Hx Dizziness: Yes Hx Syncope: Yes Hx Headaches: Yes - occasional Hx Weakness: Yes Hx Fatigue: Yes Physical Exam Vital Signs Date Time Temp Pulse Resp B/P (MAP) Pulse Ox O2 Delivery O2 Flow Rate FiO2 09/18/18 07:30 98 17 Nasal Cannula 2.0 28 09/18/18 07:30 99 09/18/18 08:00 97.3 112/56 (74) Procedures Critical Care Time Critical Care Time i. I feel this is a highly complex case requiring extensive working including EKG/Rhythm strip, Xray/CT/US, Blood/urine lab work, repeat exams while in ED, and administration of strong opiates/narcotics for pain control, admission to hospital or close patient follow up. Total time: 30 min bedside evaluation and treatment excludes procedures (EKG). Reason for critical care: respiratory distress, collapsed L lung Possible complications: hypotension, hypertension, AK, shock, arrhythmias, metabolic acidosis, end organ damage, respiratory failure. Interventions: evaluation of CXR. intubation Course: patient presenting with respiratory distress. CXR shows L collapsed lung. patient on BIPAP without improved oxygenation. I evaluated patient at bedside and intubated patient without difficulty. Repeat chest x-ray shows ET tube in place but persistent opacification of the left side. admitting physicians informed Consultations: nursing staff, EMS, family Performed by: Dr Victoria Tolerated well condition = critical j. because of unstable vital signs this patient had a condition that could potentially threaten life or limb. I feel this is a critical patient who required my full attention while patient was considered critical. Total Critical Care Time excluding procedures was greater than 30 minutes Intubation Intubation : Consent: Verbal Intubation Method: orotracheal Tube Size (cm): 7.5 Medications: Etomidate, Rocuronium Breath Sounds after Intubation: equal Intubation Complications: no complications Post Intubation Xray: Yes Attempts: One Patient Tolerated: Well Complications: None Medical Decision Making Diagnostic Impression: Primary Impression: COPD (chronic obstructive pulmonary disease) Qualified Codes: J44.9 - Chronic obstructive pulmonary disease, unspecified Additional Impression: Hypercapnia ER Course I was called to the ICU to evaluate this patient. Head chest x-ray this morning which showed opacification of the left lung. Patient appeared to be in distress and was placed on BiPAP. There was no improvement in patient's condition. I evaluated patient at bedside and made decision to intubate patient. Patient intubated without difficulty. Oxygenation improved on ventilator. Repeat chest x-ray shows ET tube in place. Admitting physicians informed Last Vital Signs Date Time Temp Pulse Resp B/P (MAP) Pulse Ox O2 Delivery O2 Flow Rate FiO2 09/22/18 14:30 80 16 45 09/22/18 14:00 124/92 (103) 100 09/22/18 13:00 97.0 09/22/18 12:30 Facial 09/22/18 12:00 2.0 Status: improved Disposition: ADMITTED INPATIENT Condition: Critical Referrals: Yonathan Mendoza MD (PCP) Holden Victoria MD Sep 22, 2018 14:39
--- NOTE | 2018-09-22 15:32 | Nephrology Progress Note ---
Assessment/Plan Problem List: (1) Respiratory failure, acute (2) Hyponatremia (3) Seizure disorder (4) Acute diastolic CHF (congestive heart failure) (5) COPD (chronic obstructive pulmonary disease) (6) Pacemaker Assessment HypoNatremia ? Etiology: depletional / Diuretics / SIADH ... bronchoscopy for left lung collapse Acute respiratory failure on BIPAP- COPD Encephalopathy due to high CO2 Pacemaker UTI Low MCV Anemia Hypoalbuminemia EjFx 55% last admission h/o Atfib Plan Plan; pulm intervention for left lung collapse BIPAP as needed- Diamox adjust dose López 3% saline one time given stop lasix IV iron monitor lytes Anemia clinton solumedrol to po prednisone per orders Subjective ROS Limited/Unobtainable: No Objective Objective Last 24 Hour Vital Signs Date Time Temp Pulse Resp B/P (MAP) Pulse Ox O2 Delivery O2 Flow Rate FiO2 09/22/18 14:30 80 16 45 09/22/18 14:00 84 16 124/92 (103) 100 09/22/18 13:00 97.0 82 16 108/48 (68) 100 09/22/18 12:45 75 16 55 09/22/18 12:30 84 14 99 Facial 40 09/22/18 12:20 90 09/22/18 12:00 Nasal Cannula 2.0 09/22/18 12:00 97.3 85 20 136/56 (82) 97 09/22/18 10:46 75 19 98 09/22/18 08:39 76 16 96 Facial 40 09/22/18 08:00 Bi-pap 09/22/18 08:00 97.5 84 18 118/58 (78) 96 09/22/18 08:00 85 09/22/18 07:48 79 15 97 Facial 40 09/22/18 06:30 97 Nasal Cannula 4.0 36 09/22/18 06:30 74 24 97 09/22/18 06:30 Nasal Cannula 4.0 36 09/22/18 05:14 71 18 96 Facial 40 09/22/18 04:00 Nasal Cannula 2.0 09/22/18 04:00 98.0 80 20 122/67 (85) 98 09/22/18 04:00 70 09/22/18 00:58 65 14 99 Facial 80 09/22/18 00:00 Bi-pap 10.0 09/22/18 00:00 97.9 73 17 129/67 (87) 100 09/22/18 00:00 70 09/21/18 22:58 76 20 95 Facial 100 09/21/18 22:07 81 16 92 Full Face 100 09/21/18 20:00 97.9 90 26 149/67 (94) 95 09/21/18 20:00 101 09/21/18 20:00 Room Air 4.0 09/21/18 19:07 94 Nasal Cannula 2.0 28 09/21/18 19:07 Nasal Cannula 2.0 28 09/21/18 19:06 90 18 Nasal Cannula 2.0 28 09/21/18 16:00 Room Air 4.0 09/21/18 16:00 98.1 90 20 139/65 (89) 93 09/21/18 16:00 91 Intake and Output 09/21/18 09/22/18 18:59 06:59 Intake Total 80 ml Output Total 950 ml 400 ml Balance -870 ml -400 ml Intake Oral 80 ml Output Urine Total 950 ml 400 ml Laboratory Tests 09/21/18 21:30: Arterial Blood pH 7.142*L, Arterial Blood Partial Pressure CO2 114.0*H, Arterial Blood Partial Pressure O2 57.0L, Arterial Blood HCO3 38.1H, Arterial Blood Oxygen Saturation 80.1*L, Arterial Blood Base Excess 6.1H, Ian Test Positive 09/21/18 23:07: Arterial Blood pH 7.245*L, Arterial Blood Partial Pressure CO2 80.9*H, Arterial Blood Partial Pressure O2 79.0, Arterial Blood HCO3 34.3H, Arterial Blood Oxygen Saturation 93.2L, Arterial Blood Base Excess 5.3H, Ian Test Positive 09/22/18 03:20: White Blood Count 8.6, Red Blood Count 3.61L, Hemoglobin 9.4L, Hematocrit 30.2L , Mean Corpuscular Volume 84, Mean Corpuscular Hemoglobin 25.9L, Mean Corpuscular Hemoglobin Concent 31.0L, Red Cell Distribution Width 19.2H, Platelet Count 231, Mean Platelet Volume 6.2L, Neutrophils (%) (Auto) 79.3H, Lymphocytes (%) (Auto) 13.2L, Monocytes (%) (Auto) 6.6, Eosinophils (%) (Auto) 0.1, Basophils (%) (Auto) 0.8, Sodium Level 138, Potassium Level 3.6, Chloride Level 100, Carbon Dioxide Level 35H, Anion Gap 3L, Blood Urea Nitrogen 10, Creatinine 0.5L, Estimat Glomerular Filtration Rate , Glucose Level 85, Calcium Level 8.2L, Phosphorus Level 5.0H, Magnesium Level 1.8, Total Bilirubin 0.3, Aspartate Amino Transf (AST/SGOT) 11L, Alanine Aminotransferase (ALT/SGPT) 12, Alkaline Phosphatase 50, Pro-B-Type Natriuretic Peptide 7412H, Total Protein 5.7L, Albumin 2.5L, Globulin 3.2, Albumin/Globulin Ratio 0.8L, Triglycerides Level 122 09/22/18 08:18: Arterial Blood pH 7.295L, Arterial Blood Partial Pressure CO2 69.5*H, Arterial Blood Partial Pressure O2 79.3, Arterial Blood HCO3 33.0H, Arterial Blood Oxygen Saturation 94.1L, Arterial Blood Base Excess 5.0H, Ian Test Positive 09/22/18 14:10: Arterial Blood pH 7.406, Arterial Blood Partial Pressure CO2 50.8H, Arterial Blood Partial Pressure O2 110.7H, Arterial Blood HCO3 31.2H, Arterial Blood Oxygen Saturation 97.6, Arterial Blood Base Excess 5.6H, Ian Test Positive Height (Feet): 5 Weight (Pounds): 160 General Appearance: agitated Cardiovascular: arrhythmia Respiratory/Chest: decreased breath sounds Abdomen: distended Objective no change Danilo Huber MD Sep 22, 2018 15:32
[2018-09-22] MEDS ORDERED: NS 275ml ONE (15:45)
--- NOTE | 2018-09-22 15:48 | Cardiology Progress Note ---
Assessment/Plan Assessment/Plan 1. Bronchospasm. 2. Possible left-sided infiltrate or pneumonia. 3. Diastolic heart failure history. 4. Permanent atrial fibrillation. 5. lung collapse 6. hs of pacer in icu thomas vent for left lugn collapse vr seem fine bp is fien at time tiem pulm toiletter abx will hold eliquis in case need bronch Subjective ROS Limited/Unobtainable: Yes Subjective intubated on vent awake and responsive , denies any cp has sob Objective Last 24 Hour Vital Signs Date Time Temp Pulse Resp B/P (MAP) Pulse Ox O2 Delivery O2 Flow Rate FiO2 09/22/18 15:00 82 21 114/53 (73) 99 09/22/18 14:30 80 16 45 09/22/18 14:00 84 16 124/92 (103) 100 09/22/18 13:00 97.0 82 16 108/48 (68) 100 09/22/18 12:45 75 16 55 09/22/18 12:30 84 14 99 Facial 40 09/22/18 12:20 90 09/22/18 12:00 Nasal Cannula 2.0 09/22/18 12:00 97.3 85 20 136/56 (82) 97 09/22/18 10:46 75 19 98 09/22/18 08:39 76 16 96 Facial 40 09/22/18 08:00 Bi-pap 09/22/18 08:00 97.5 84 18 118/58 (78) 96 09/22/18 08:00 85 09/22/18 07:48 79 15 97 Facial 40 09/22/18 06:30 97 Nasal Cannula 4.0 36 09/22/18 06:30 74 24 97 09/22/18 06:30 Nasal Cannula 4.0 36 09/22/18 05:14 71 18 96 Facial 40 09/22/18 04:00 Nasal Cannula 2.0 09/22/18 04:00 98.0 80 20 122/67 (85) 98 09/22/18 04:00 70 09/22/18 00:58 65 14 99 Facial 80 09/22/18 00:00 Bi-pap 10.0 09/22/18 00:00 97.9 73 17 129/67 (87) 100 09/22/18 00:00 70 09/21/18 22:58 76 20 95 Facial 100 09/21/18 22:07 81 16 92 Full Face 100 09/21/18 20:00 97.9 90 26 149/67 (94) 95 09/21/18 20:00 101 09/21/18 20:00 Room Air 4.0 09/21/18 19:07 94 Nasal Cannula 2.0 28 09/21/18 19:07 Nasal Cannula 2.0 28 09/21/18 19:06 90 18 Nasal Cannula 2.0 28 09/21/18 16:00 Room Air 4.0 09/21/18 16:00 98.1 90 20 139/65 (89) 93 09/21/18 16:00 91 General Appearance: no apparent distress, alert Cardiovascular: irregularly irregular Respiratory/Chest: rhonchi - bilaterally, expiratory wheezing Abdomen: normal bowel sounds, non tender, soft Extremities: trace edema Intake and Output 09/21/18 09/22/18 18:59 06:59 Intake Total 80 ml Output Total 950 ml 400 ml Balance -870 ml -400 ml Intake Oral 80 ml Output Urine Total 950 ml 400 ml Laboratory Tests Test 09/21/18 21:30 09/21/18 23:07 09/22/18 03:20 09/22/18 08:18 Arterial Blood pH 7.142 (7.350-7.450) 7.245 (7.350-7.450) 7.295 (7.350-7.450) Arterial Blood Partial Pressure CO2 114.0 mmHg (35.0-45.0) *H 80.9 mmHg (35.0-45.0) *H 69.5 mmHg (35.0-45.0) *H Arterial Blood Partial Pressure O2 57.0 mmHg (75.0-100.0) L 79.0 mmHg (75.0-100.0) 79.3 mmHg (75.0-100.0) Arterial Blood HCO3 38.1 mmol/L (22.0-26.0) H 34.3 mmol/L (22.0-26.0) H 33.0 mmol/L (22.0-26.0) H Arterial Blood Oxygen Saturation 80.1 % (95-100) *L 93.2 % (95-100) L 94.1 % (95-100) L Arterial Blood Base Excess 6.1 (-2-2) H 5.3 (-2-2) H 5.0 (-2-2) H Ian Test Positive Positive Positive White Blood Count 8.6 K/UL (4.8-10.8) Red Blood Count 3.61 M/UL (4.20-5.40) L Hemoglobin 9.4 G/DL (12.0-16.0) L Hematocrit 30.2 % (37.0-47.0) L Mean Corpuscular Volume 84 FL (80-99) Mean Corpuscular Hemoglobin 25.9 PG (27.0-31.0) L Mean Corpuscular Hemoglobin Concent 31.0 G/DL (32.0-36.0) L Red Cell Distribution Width 19.2 % (11.6-14.8) H Platelet Count 231 K/UL (150-450) Mean Platelet Volume 6.2 FL (6.5-10.1) L Neutrophils (%) (Auto) 79.3 % (45.0-75.0) H Lymphocytes (%) (Auto) 13.2 % (20.0-45.0) L Monocytes (%) (Auto) 6.6 % (1.0-10.0) Eosinophils (%) (Auto) 0.1 % (0.0-3.0) Basophils (%) (Auto) 0.8 % (0.0-2.0) Sodium Level 138 MMOL/L (136-145) Potassium Level 3.6 MMOL/L (3.5-5.1) Chloride Level 100 MMOL/L (98-107) Carbon Dioxide Level 35 MMOL/L (21-32) H Anion Gap 3 mmol/L (5-15) L Blood Urea Nitrogen 10 mg/dL (7-18) Creatinine 0.5 MG/DL (0.55-1.30) L Estimat Glomerular Filtration Rate mL/min (>60) Glucose Level 85 MG/DL (74-106) Calcium Level 8.2 MG/DL (8.5-10.1) L Phosphorus Level 5.0 MG/DL (2.5-4.9) H Magnesium Level 1.8 MG/DL (1.8-2.4) Total Bilirubin 0.3 MG/DL (0.2-1.0) Aspartate Amino Transf (AST/SGOT) 11 U/L (15-37) L Alanine Aminotransferase (ALT/SGPT) 12 U/L (12-78) Alkaline Phosphatase 50 U/L (46-116) Pro-B-Type Natriuretic Peptide 7412 pg/mL (0-125) H Total Protein 5.7 G/DL (6.4-8.2) L Albumin 2.5 G/DL (3.4-5.0) L Globulin 3.2 g/dL Albumin/Globulin Ratio 0.8 (1.0-2.7) L Triglycerides Level 122 MG/DL (30-150) Test 09/22/18 14:10 Arterial Blood pH 7.406 (7.350-7.450) Arterial Blood Partial Pressure CO2 50.8 mmHg (35.0-45.0) H Arterial Blood Partial Pressure O2 110.7 mmHg (75.0-100.0) H Arterial Blood HCO3 31.2 mmol/L (22.0-26.0) H Arterial Blood Oxygen Saturation 97.6 % (95-100) Arterial Blood Base Excess 5.6 (-2-2) H Ian Test Positive Akbar Reno MD Sep 22, 2018 15:48
[2018-09-22] MEDS ORDERED: Etomidate 40mg/20ml Inj IV ONE (15:50)
[2018-09-22] MEDS ORDERED: Zemuron 50mg/5ml Inj IV ONE (15:50)
--- NOTE | 2018-09-22 16:30 | Cardiac Electrophysiology PN ---
Assessment/Plan Assessment/Plan 1. 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 2. Chronic atrial fibrillation. The rate is controlled off any antiarrhythmics. On anticoagulation with Eliquis 5 mg b.i.d. 3. Severe COPD. On Solu-Medrol. 4. Diastolic congestive heart failure. 5. Diabetes. 6. Left lung collapse. Intubated on the vent. Bronchoscopy cancelled by Dr. Rigo RICHARDSON RN Subjective Subjective Transferred to ICU for Left ling collapse. Bronchoscopy was cancelled and now is intubated. Objective Last 24 Hour Vital Signs Date Time Temp Pulse Resp B/P (MAP) Pulse Ox O2 Delivery O2 Flow Rate FiO2 09/22/18 16:18 45.0 09/22/18 16:00 Nasal Cannula 2.0 09/22/18 16:00 35.0 09/22/18 16:00 98.0 76 17 144/63 (90) 99 09/22/18 15:00 82 21 114/53 (73) 99 09/22/18 14:30 80 16 45 09/22/18 14:00 84 16 124/92 (103) 100 09/22/18 13:00 97.0 82 16 108/48 (68) 100 09/22/18 12:45 75 16 55 09/22/18 12:30 84 14 99 Facial 40 09/22/18 12:20 90 09/22/18 12:00 Nasal Cannula 2.0 09/22/18 12:00 97.3 85 20 136/56 (82) 97 09/22/18 10:46 75 19 98 09/22/18 08:39 76 16 96 Facial 40 09/22/18 08:00 Bi-pap 09/22/18 08:00 97.5 84 18 118/58 (78) 96 09/22/18 08:00 85 09/22/18 07:48 79 15 97 Facial 40 09/22/18 06:30 97 Nasal Cannula 4.0 36 09/22/18 06:30 74 24 97 09/22/18 06:30 Nasal Cannula 4.0 36 09/22/18 05:14 71 18 96 Facial 40 09/22/18 04:00 Nasal Cannula 2.0 09/22/18 04:00 98.0 80 20 122/67 (85) 98 4/23/19 04:00 70 09/22/18 00:58 65 14 99 Facial 80 09/22/18 00:00 Bi-pap 10.0 09/22/18 00:00 97.9 73 17 129/67 (87) 100 09/22/18 00:00 70 09/21/18 22:58 76 20 95 Facial 100 09/21/18 22:07 81 16 92 Full Face 100 09/21/18 20:00 97.9 90 26 149/67 (94) 95 09/21/18 20:00 101 09/21/18 20:00 Room Air 4.0 09/21/18 19:07 94 Nasal Cannula 2.0 28 09/21/18 19:07 Nasal Cannula 2.0 28 09/21/18 19:06 90 18 Nasal Cannula 2.0 28 Intake and Output 09/21/18 09/22/18 18:59 06:59 Intake Total 80 ml Output Total 950 ml 400 ml Balance -870 ml -400 ml Intake Oral 80 ml Output Urine Total 950 ml 400 ml Laboratory Tests Test 09/21/18 21:30 09/21/18 23:07 09/22/18 03:20 09/22/18 08:18 Arterial Blood pH 7.142 (7.350-7.450) 7.245 (7.350-7.450) 7.295 (7.350-7.450) Arterial Blood Partial Pressure CO2 114.0 mmHg (35.0-45.0) *H 80.9 mmHg (35.0-45.0) *H 69.5 mmHg (35.0-45.0) *H Arterial Blood Partial Pressure O2 57.0 mmHg (75.0-100.0) L 79.0 mmHg (75.0-100.0) 79.3 mmHg (75.0-100.0) Arterial Blood HCO3 38.1 mmol/L (22.0-26.0) H 34.3 mmol/L (22.0-26.0) H 33.0 mmol/L (22.0-26.0) H Arterial Blood Oxygen Saturation 80.1 % (95-100) *L 93.2 % (95-100) L 94.1 % (95-100) L Arterial Blood Base Excess 6.1 (-2-2) H 5.3 (-2-2) H 5.0 (-2-2) H Ian Test Positive Positive Positive White Blood Count 8.6 K/UL (4.8-10.8) Red Blood Count 3.61 M/UL (4.20-5.40) L Hemoglobin 9.4 G/DL (12.0-16.0) L Hematocrit 30.2 % (37.0-47.0) L Mean Corpuscular Volume 84 FL (80-99) Mean Corpuscular Hemoglobin 25.9 PG (27.0-31.0) L Mean Corpuscular Hemoglobin Concent 31.0 G/DL (32.0-36.0) L Red Cell Distribution Width 19.2 % (11.6-14.8) H Platelet Count 231 K/UL (150-450) Mean Platelet Volume 6.2 FL (6.5-10.1) L Neutrophils (%) (Auto) 79.3 % (45.0-75.0) H Lymphocytes (%) (Auto) 13.2 % (20.0-45.0) L Monocytes (%) (Auto) 6.6 % (1.0-10.0) Eosinophils (%) (Auto) 0.1 % (0.0-3.0) Basophils (%) (Auto) 0.8 % (0.0-2.0) Sodium Level 138 MMOL/L (136-145) Potassium Level 3.6 MMOL/L (3.5-5.1) Chloride Level 100 MMOL/L (98-107) Carbon Dioxide Level 35 MMOL/L (21-32) H Anion Gap 3 mmol/L (5-15) L Blood Urea Nitrogen 10 mg/dL (7-18) Creatinine 0.5 MG/DL (0.55-1.30) L Estimat Glomerular Filtration Rate mL/min (>60) Glucose Level 85 MG/DL (74-106) Calcium Level 8.2 MG/DL (8.5-10.1) L Phosphorus Level 5.0 MG/DL (2.5-4.9) H Magnesium Level 1.8 MG/DL (1.8-2.4) Total Bilirubin 0.3 MG/DL (0.2-1.0) Aspartate Amino Transf (AST/SGOT) 11 U/L (15-37) L Alanine Aminotransferase (ALT/SGPT) 12 U/L (12-78) Alkaline Phosphatase 50 U/L (46-116) Pro-B-Type Natriuretic Peptide 7412 pg/mL (0-125) H Total Protein 5.7 G/DL (6.4-8.2) L Albumin 2.5 G/DL (3.4-5.0) L Globulin 3.2 g/dL Albumin/Globulin Ratio 0.8 (1.0-2.7) L Triglycerides Level 122 MG/DL (30-150) Test 09/22/18 14:10 Arterial Blood pH 7.406 (7.350-7.450) Arterial Blood Partial Pressure CO2 50.8 mmHg (35.0-45.0) H Arterial Blood Partial Pressure O2 110.7 mmHg (75.0-100.0) H Arterial Blood HCO3 31.2 mmol/L (22.0-26.0) H Arterial Blood Oxygen Saturation 97.6 % (95-100) Arterial Blood Base Excess 5.6 (-2-2) H Ian Test Positive Objective HEAD AND NECK: Mild JVD. LUNGS: Coarse rhonchi bilaterally. CARDIOVASCULAR: Irregular S1 and S2 with no gallop. ABDOMEN: Soft. EXTREMITIES: No pitting edema. Yohan Milian MD Sep 22, 2018 16:30
--- NOTE | 2018-09-22 16:36 | NUR ---
NURSE NOTES: Dr Reno and Dr Milian here to see pt. Pt is afib on conveyor monitor. Pt given ativan for agitation. Will continue to monitor.
--- NOTE | 2018-09-22 18:46 | Internal Med Progress Note ---
Subjective Date of Service: Sep 22, 2018 Physician Name Dutta,Juan Attending Physician Yonathan Mendoza MD Current Medications Medications (Trade) Dose Ordered Sig/Ibrahima Route PRN Reason Start Time Stop Time Status Last Admin Dose Admin Acetaminophen (Tylenol) 650 mg Q4H PRN ORAL Mild Pain (Pain Scale 1-3) 09/22/18 12:47 10/21/18 12:46 Acetaminophen/ Codeine Phosphate (Tylenol #3) 1 tab Q4H PRN ORAL ModeratePain 09/22/18 13:00 09/28/18 12:51 Acetaminophen/ Hydrocodone Bitart (Sherwood 5/325) 1 tab Q4H PRN ORAL moderate pain 09/22/18 12:52 09/28/18 12:51 Acetazolamide (Diamox) 250 mg Q8HR ORAL 09/22/18 14:00 10/19/18 21:59 Albuterol/ Ipratropium (Albuterol/ Ipratropium) 3 ml Q4H PRN HHN Shortness of breath 09/22/18 12:48 09/26/18 12:47 Apixaban (Eliquis) 5 mg BID ORAL 09/22/18 18:00 10/19/18 08:59 Dextrose (Dextrose 50%) 25 ml Q30M PRN IV Hypoglycemia 09/22/18 13:00 10/17/18 06:59 Dextrose (Dextrose 50%) 50 ml Q30M PRN IV Hypoglycemia 09/22/18 13:00 10/17/18 06:59 Docusate Sodium (Colace) 100 mg TID ORAL 09/22/18 13:00 10/19/18 08:59 Folic Acid (Folate) 5 mg DAILY ORAL 09/23/18 09:00 10/18/18 09:59 Lorazepam (Ativan 2mg/ml 1ml) 2 mg Q4H PRN IV For Anxiety 09/22/18 13:00 09/29/18 12:59 09/22/18 13:48 Morphine Sulfate (Morphine Sulfate) 4 mg Q4H PRN IVP Severe pain(7-10) 09/22/18 12:58 09/29/18 12:57 Ondansetron HCl (Zofran) 4 mg Q6H PRN IVP Nausea & Vomiting 09/22/18 12:49 10/21/18 12:48 Pantoprazole (Protonix) 40 mg DAILY IV 09/23/18 09:00 10/23/18 08:59 Pantoprazole (Protonix) 40 mg Q12HR ORAL 09/22/18 21:00 10/18/18 20:59 Polyethylene Glycol (Miralax) 17 gm DAILYPRN PRN ORAL Constipation 09/22/18 12:50 10/21/18 12:49 Prednisone (predniSONE) 40 mg DAILY ORAL 09/23/18 09:00 10/20/18 08:59 Risperidone (RisperDAL) 1 mg BEDTIME ORAL 09/22/18 21:00 10/17/18 20:59 Temazepam (Restoril) 15 mg HSPRN PRN ORAL Insomnia 09/22/18 21:00 09/25/18 20:59 Thiamine HCl (Vitamin B1) 100 mg DAILY ORAL 09/23/18 09:00 10/20/18 08:59 Allergies: Coded Allergies: PIPERACILLIN (Unverified Allergy, Unknown, 05/21/18) tolerates cephalosporins TAZOBACTAM (Unverified Allergy, Unknown, 03/10/18) ROS Limited/Unobtainable: Yes Subjective 77 YO F admitted for respiratory distress. Now left lung opacification. Intubated 09/22/18. Cover for Int Med-DR Mendoza. ICU Objective Last Vital Signs Date Time Temp Pulse Resp B/P (MAP) Pulse Ox O2 Delivery O2 Flow Rate FiO2 09/22/18 18:00 79 22 131/62 (85) 100 09/22/18 16:47 45 09/22/18 16:18 45.0 09/22/18 16:00 Endotracheal Tube 09/22/18 16:00 98.0 Laboratory Tests Test 09/21/18 21:30 09/21/18 23:07 09/22/18 03:20 09/22/18 08:18 Arterial Blood pH 7.142 (7.350-7.450) 7.245 (7.350-7.450) 7.295 (7.350-7.450) Arterial Blood Partial Pressure CO2 114.0 mmHg (35.0-45.0) *H 80.9 mmHg (35.0-45.0) *H 69.5 mmHg (35.0-45.0) *H Arterial Blood Partial Pressure O2 57.0 mmHg (75.0-100.0) L 79.0 mmHg (75.0-100.0) 79.3 mmHg (75.0-100.0) Arterial Blood HCO3 38.1 mmol/L (22.0-26.0) H 34.3 mmol/L (22.0-26.0) H 33.0 mmol/L (22.0-26.0) H Arterial Blood Oxygen Saturation 80.1 % (95-100) *L 93.2 % (95-100) L 94.1 % (95-100) L Arterial Blood Base Excess 6.1 (-2-2) H 5.3 (-2-2) H 5.0 (-2-2) H Ian Test Positive Positive Positive White Blood Count 8.6 K/UL (4.8-10.8) Red Blood Count 3.61 M/UL (4.20-5.40) L Hemoglobin 9.4 G/DL (12.0-16.0) L Hematocrit 30.2 % (37.0-47.0) L Mean Corpuscular Volume 84 FL (80-99) Mean Corpuscular Hemoglobin 25.9 PG (27.0-31.0) L Mean Corpuscular Hemoglobin Concent 31.0 G/DL (32.0-36.0) L Red Cell Distribution Width 19.2 % (11.6-14.8) H Platelet Count 231 K/UL (150-450) Mean Platelet Volume 6.2 FL (6.5-10.1) L Neutrophils (%) (Auto) 79.3 % (45.0-75.0) H Lymphocytes (%) (Auto) 13.2 % (20.0-45.0) L Monocytes (%) (Auto) 6.6 % (1.0-10.0) Eosinophils (%) (Auto) 0.1 % (0.0-3.0) Basophils (%) (Auto) 0.8 % (0.0-2.0) Sodium Level 138 MMOL/L (136-145) Potassium Level 3.6 MMOL/L (3.5-5.1) Chloride Level 100 MMOL/L (98-107) Carbon Dioxide Level 35 MMOL/L (21-32) H Anion Gap 3 mmol/L (5-15) L Blood Urea Nitrogen 10 mg/dL (7-18) Creatinine 0.5 MG/DL (0.55-1.30) L Estimat Glomerular Filtration Rate mL/min (>60) Glucose Level 85 MG/DL (74-106) Calcium Level 8.2 MG/DL (8.5-10.1) L Phosphorus Level 5.0 MG/DL (2.5-4.9) H Magnesium Level 1.8 MG/DL (1.8-2.4) Total Bilirubin 0.3 MG/DL (0.2-1.0) Aspartate Amino Transf (AST/SGOT) 11 U/L (15-37) L Alanine Aminotransferase (ALT/SGPT) 12 U/L (12-78) Alkaline Phosphatase 50 U/L (46-116) Pro-B-Type Natriuretic Peptide 7412 pg/mL (0-125) H Total Protein 5.7 G/DL (6.4-8.2) L Albumin 2.5 G/DL (3.4-5.0) L Globulin 3.2 g/dL Albumin/Globulin Ratio 0.8 (1.0-2.7) L Triglycerides Level 122 MG/DL (30-150) Test 09/22/18 14:10 Arterial Blood pH 7.406 (7.350-7.450) Arterial Blood Partial Pressure CO2 50.8 mmHg (35.0-45.0) H Arterial Blood Partial Pressure O2 110.7 mmHg (75.0-100.0) H Arterial Blood HCO3 31.2 mmol/L (22.0-26.0) H Arterial Blood Oxygen Saturation 97.6 % (95-100) Arterial Blood Base Excess 5.6 (-2-2) H Ian Test Positive Intake and Output 09/21/18 09/22/18 19:00 07:00 Intake Total 80 ml Output Total 950 ml 400 ml Balance -870 ml -400 ml Intake Oral 80 ml Output Urine Total 950 ml 400 ml Objective PHYSICAL EXAMINATION: GENERAL: The patient is a well-developed and well-nourished white female, who is in moderate respiratory distress. HEENT: Eyes, pupils are equal and responsive to light and accommodation. Extraocular movements are intact. NECK: Supple without lymphadenopathy. CHEST: Mech vent; Few rales in bilateral bases, otherwise, Lungs are clear to auscultation bilaterally without wheezes CARDIOVASCULAR: Regular rhythm and rate. S1 and S2 normal without murmurs, rubs, or gallops. ABDOMEN: Soft, nontender, and nondistended. Positive bowel sounds. No evidence of hepatosplenomegaly. Currently, no rebound or guarding noted. EXTREMITIES: Negative for clubbing, cyanosis, or edema. RECTAL/GENITAL: Refused. NEUROLOGIC: Cranial nerves II through XII are grossly intact without focal deficits. Motor strength is 5/5 bilaterally. Deep tendon reflexes are 2+ plantar. Assessment/Plan Assessment/Plan ASSESSMENT: This is a 77-year-old white female with: 1. Shortness of breath. 2. Hypoxia. 3. Acute on chronic congestive heart failure. 4. Atrial flutter. 5. Hyponatremia. 6. Chronic obstructive pulmonary disease. 7. Coronary artery disease. 8. Hypertension. 9. Seizure disorder. 10. Paranoid schizophrenia. 11. Intraventricular pacemaker 12. left lung opacification-collapse per CT TREATMENT: 1. Shortness of breath/congestive heart failure. Continue mech vent per pulmonary Dr Sierra. Cardiologyconsultation has been obtained with Dr. Milian. The patient is currently receiving intravenous Lasix. We will follow recommendation of Cardiology. BNP is elevated at over greater than 5000. An echocardiogram is pending. 2. Atrial flutter. Continue Eliquis as above. 3. Hyponatremia. The patient is currently receiving intravenous fluids. 4. Chronic obstructive pulmonary disease. Continue DuoNeb nebulized as above. The patient was initially placed on BiPAP in the emergency room. A Pulmonary consultation has been obtained with Dr. Mendel Sierra. 5. Hypertension. Continue Lasix as above. 6. Seizure disorder. The patient is currently off antiseizure medication. 7. Paranoid schizophrenia. Continue Risperdal as above. Juan Dutta MD Sep 22, 2018 18:46
--- NOTE | 2018-09-22 19:07 | NUR ---
RESPIRATORY NOTE: Received pt on AC 16, 600VT, 45%, no PEEP. Pt intubated w/ ETT 7.5 @ 22cm lipline, secured by anchorfast. Pt alert/awake, occasionally agitated. B/S carla. rales/rhonchi, sxn small to moderate amounts of thin, frothy, white secretions. Both hands on soft restraints to prevent pt from self-extubation. Vent plugged into red outlet, ambubag at bedside. Pt in no apparent distress at this time. Will continue to monitor pt.
--- NOTE | 2018-09-22 19:09 | NUR ---
HAND-OFF: Report given to Santi OVALLES.
--- NOTE | 2018-09-22 19:15 | NUR ---
NURSE NOTES: Report received from Gilma RN. Pt alert and oriented x 2, confused and forgetful at times. Pt connected to bus driver/monitor, a fib. ETT 7.5/22cm, AC 16, 500tv, 35%, 5. López noted and intact. RW 22G heplock noted and intact. Safety measures in place with bed locked and in lowest position, side rails with pads x3 up and bed alarm on. Bilateral soft wrist restrains, pulses noted and skin intact. Will continue to monitor and continue plan of care.
--- NOTE | 2018-09-22 20:00 | NUR ---
NURSE NOTES: Skin assessment performed. Patient was repositioned with LTA. Heels off loaded. Educated patient to shift body as much as possible when able to. Patients temperature noted to be 100.1F. Cooling measures initiated.
--- NOTE | 2018-09-22 21:00 | NUR ---
NURSE NOTES: NGT inserted for PO medication. 2 RN's verified placement, gastric content noted. Tylenol 650 given for fever.
--- NOTE | 2018-09-22 22:00 | NUR ---
NURSE NOTES: Patient repositioned and pillows adjusted. Vitals remains stable, HR remains Afib.
[2018-09-23] VITALS (24 sets, daily range): BP systolic 119–161; BP diastolic 33–78
--- NOTE | 2018-09-23 | NUR ---
NURSE NOTES: Patient repositioned and provided oral care. Vitals remains stable. Temperature now is 99.1F. Afib controlled rhythm,
--- NOTE | 2018-09-23 02:00 | NUR ---
NURSE NOTES: Patient repositioned and given oral care. Suctioned and lavaged.
--- NOTE | 2018-09-23 04:00 | NUR ---
NURSE NOTES: Patient provided oral care and suctioned. Morning labs drawn. Vitals remains stable, no new changes,will continue to monitor.
[2018-09-23 04:53] LABS: BASOPHILS % (AUTO) 0.4 % (0.0-2.0); EOSINOPHILS % (AUTO) 0.4 % (0.0-3.0); HEMATOCRIT 28.4 % (37.0-47.0); HEMOGLOBIN 9.2 G/DL (12.0-16.0); LYMPHOCYTES % (AUTO) 11.2 % (20.0-45.0); MEAN CORPUSCULAR VOLUME 81 FL (80-99); MONOCYTES % (AUTO) 4.5 % (1.0-10.0); NEUTROPHILS % (AUTO) 83.5 % (45.0-75.0); PLATELET COUNT 255 K/UL (150-450); RED CELL DISTRIBUTION WIDTH 19.1 % (11.6-14.8); WHITE BLOOD COUNT 12.6 K/UL (4.8-10.8)
[2018-09-23 05:27] LABS: ALANINE AMINOTRANSFERASE 13 U/L (12-78); ALBUMIN 2.6 G/DL (3.4-5.0); ALBUMIN/GLOBULIN RATIO 0.9 (1.0-2.7); ALKALINE PHOSPHATASE 46 U/L (46-116); ANION GAP 9 mmol/L (5-15); ASPARTATE AMINO TRANSFERASE 14 U/L (15-37); BILIRUBIN,TOTAL 0.7 MG/DL (0.2-1.0); BLOOD UREA NITROGEN 11 mg/dL (7-18); CALCIUM 8.4 MG/DL (8.5-10.1); CARBON DIOXIDE 30 MMOL/L (21-32); CHLORIDE 102 MMOL/L (98-107); CREATININE 0.6 MG/DL (0.55-1.30); PHOSPHORUS 1.8 MG/DL (2.5-4.9); SODIUM 140 MMOL/L (136-145)
[2018-09-23 05:40] LABS: POTASSIUM 2.5 MMOL/L (3.5-5.1)
[2018-09-23] MEDS: Morphine Sulfate 4mg/ml Inj (IV USE ONLY) IVP PRN ×2 (06:10→22:13)
--- NOTE | 2018-09-23 06:35 | NUR ---
NURSE NOTES: Called Dr. Huber regarding morning labs: Potassium of 2.5, Phos 1.8, and magnesium of 1.6. Message received from MD, no new orders at this time, will continue to monitor patients progress.
[2018-09-23] MEDS ORDERED: Sodium Chloride for KCL Premix X 4hrs IV SCH (07:00)
--- NOTE | 2018-09-23 07:50 | NUR ---
NURSE NOTES: Received the patient from CHARLETTE Hancock. Patient asleep, easily arousable. Patient is orally intubated, ETT size 7.5, 22cm at lip line, vent settings: AC 16, TV 600, FIO2 35%, PEEP 0. O2 sat 99%. No acute distress noted. Afib with HR 60-70s noted on the monitor. OGT intact. López cath intact and patent, draining yellow urine by gravity. Right forearm 22G intact, running Mag. Patient on bilateral soft wrist restraints, pulses present, no skin breakdown noted. Bed in lowest position, locked, side rails padded, upx3. bed alarm on. Will continue to monitor.
--- NOTE | 2018-09-23 07:54 | NUR ---
RESPIRATORY NOTE: Patient received mechanically ventilated on PB 840 with current ordered vent settings. Patient is orally intubated with 7.5 ETT tube ans 22cm at the lip line. The ETT tube is secured with an anchor fast. There are bilateral coarse breath sounds auscultated and small amount of thick clear/white secretions were suctioned without incident. There is an ambu bag available at the bedside and the vent is connected to a red outlet. Vent alarms are functional and audible. Will continue to monitor.
[2018-09-23] MEDS: Thiamine 100mg tab ORAL SCH (08:21)
[2018-09-23] MEDS: Pantoprazole Inj IV SCH (08:21)
--- NOTE | 2018-09-23 08:22 | NUR ---
RD ASSESSMENT & RECOMMENDATIONS SEE CARE ACTIVITY FOR COMPLETE ASSESSMENT DAILY ESTIMATED NEEDS: Needs based on Critical care, wound/ 54kg abw 22-30 kcals/kg 6999-4716 total kcals 1.25-2 g protein/kg 68-108 g total protein 25-30 mL/kg 4416-0613 total fluid mLs NUTRITION DIAGNOSIS: 1) Altered nutrition related lab values R/T clinical condition as evidenced by critically elev pCO2 (trending down), low pH (now wnl), elev BNP (7412), low K (2.5*), low phos (1.8), low Mg (1.6). 2) Swallowing difficulty r/t respiratory status as evidenced by s/p oral intubation, NGT placed for meds. PO DIET RECOMMENDATIONS: NEON TUBE PUMPER EVAL UPON EXTUBATION ENTERAL NUTRITION RECOMMENDATIONS: Glucerna 1.2 @55ml/hr x24 hrs to provide 1320ml, 1584 kcal, 79g pro, 1063ml free H2O - As medically able rec to initiate nonoral feeds to meet est nutritional needs. - Start Glucerna 1.2 @25ml/hr for 6 hrs, advance as tolerated 10ml/hr q4-6 hrs to goal - Flush per MD. HOB over 30 degrees ADDITIONAL RECOMMENDATIONS: REPLETE LYTES PRIOR TO NON ORAL TF * Monitor BG on prednisone, niss prn * TF recs as above as medically able * Weekly calibrated bed scale wts * NEON TUBE PUMPER eval upon extubation * Wound care: add CARLTON BID + VIT C 250mg daily .
[2018-09-23] MEDS: Eliquis 2.5mg tablet ORAL SCH ×2 (08:23→17:41)
[2018-09-23] MEDS: Docusate 100mg/10ml Liq ORAL SCH ×3 (08:23→17:41)
[2018-09-23] MEDS ORDERED: Potassium Phosphate 30 MM in NS 275 ML IV SCH (09:00)
--- NOTE | 2018-09-23 09:01 | NUR ---
RADIOLOGY DEPT., CHEST X-RAY DONE.-P.DYE
--- NOTE | 2018-09-23 09:52 | Pulmonolgy Critical Care Note ---
Critical Care - Asmt/Plan Problems: (1) Respiratory failure, acute (2) Collapse of left lung Assessment & Plan: resolved (3) Atrial fibrillation with RVR (4) Hyponatremia (5) COPD (chronic obstructive pulmonary disease) (6) Anemia, chronic disease Respiratory: monitor respiratory rate, adjust FIO2, CXR Cardiac: continue pressors, continue to monitor HR/BP Renal: F/U I&O, keep IV fluid Infectious Disease: check cultures Gastrointestinal: continue feedings/current rate, hold feedings Endocrine: check TSH Hematologic: monitor H/H Neurologic: PRN Ativan Notes Reviewed: renal Discussed with: nurses, consultants Critical Care - Objective Last 24 Hour Vital Signs Date Time Temp Pulse Resp B/P (MAP) Pulse Ox O2 Delivery O2 Flow Rate FiO2 09/23/18 08:39 70 16 35 09/23/18 08:00 69 09/23/18 08:00 35 09/23/18 07:49 63 16 35 09/23/18 07:00 66 16 143/57 (85) 100 09/23/18 06:00 71 16 161/60 (93) 100 09/23/18 05:06 79 19 35 09/23/18 05:00 76 20 149/68 (95) 100 09/23/18 04:00 73 09/23/18 04:00 35 09/23/18 04:00 Mechanical Ventilator 09/23/18 04:00 99.3 71 18 145/58 (87) 100 09/23/18 03:11 78 17 35 09/23/18 03:00 68 17 128/33 (64) 100 09/23/18 02:00 76 16 148/65 (92) 100 09/23/18 01:10 73 16 35 09/23/18 01:00 74 16 159/62 (94) 100 09/23/18 00:00 70 09/23/18 00:00 35.0 09/23/18 00:00 99.1 70 16 136/57 (83) 99 09/23/18 00:00 Mechanical Ventilator 09/22/18 23:09 83 16 35 09/22/18 23:00 78 16 147/64 (91) 100 09/22/18 22:00 76 14 135/101 (112) 100 09/22/18 21:27 99.8 09/22/18 21:15 77 16 45 09/22/18 21:00 81 17 147/55 (85) 100 09/22/18 20:22 88 09/22/18 20:00 45.0 09/22/18 20:00 100.1 82 19 145/35 (71) 100 09/22/18 20:00 Mechanical Ventilator 09/22/18 19:00 81 20 165/98 (120) 100 09/22/18 19:00 78 16 45 09/22/18 18:00 79 22 131/62 (85) 100 09/22/18 17:00 83 16 137/67 (90) 99 09/22/18 16:47 81 16 45 09/22/18 16:18 45.0 09/22/18 16:00 Endotracheal Tube 2.0 09/22/18 16:00 35.0 09/22/18 16:00 81 09/22/18 16:00 98.0 76 17 144/63 (90) 99 09/22/18 15:00 82 21 114/53 (73) 99 09/22/18 14:30 80 16 45 09/22/18 14:00 84 16 124/92 (103) 100 09/22/18 13:00 97.0 82 16 108/48 (68) 100 09/22/18 12:45 75 16 55 09/22/18 12:30 84 14 99 Facial 40 09/22/18 12:20 90 09/22/18 12:00 Nasal Cannula 2.0 09/22/18 12:00 97.3 85 20 136/56 (82) 97 09/22/18 10:46 75 19 98 Status: awake Condition: critical Neck: full ROM Lungs: clear Heart: HR/BP stable Abdomen: soft, active bowel sounds Extremities: no C/C/E Decubiti: location Critical Care - Subjective ROS Limited/Unobtainable: Yes ICU Day: 2 Condition: critical EKG Rhythm: Sinus Rhythm FI02: 35 Vent Support Breath Rate: 16 Vent Support Mode: AC Vent Tidal Volume: 600 Sputum Amount: Small PEEP: 0.0 PIP: 29 I&O: Intake and Output 09/22/18 09/23/18 19:00 07:00 Intake Total 150 ml 85 ml Output Total 1080 ml 320 ml Balance -930 ml -235 ml Intake Oral 150 ml Free Water 85 ml Output Urine Total 1080 ml 320 ml CXR: Left lung opened up ET-Tube: 7.5 ET Position: 22 Labs: Laboratory Tests Test 09/22/18 14:10 09/23/18 04:00 Arterial Blood pH 7.406 (7.350-7.450) Arterial Blood Partial Pressure CO2 50.8 mmHg (35.0-45.0) H Arterial Blood Partial Pressure O2 110.7 mmHg (75.0-100.0) H Arterial Blood HCO3 31.2 mmol/L (22.0-26.0) H Arterial Blood Oxygen Saturation 97.6 % (95-100) Arterial Blood Base Excess 5.6 (-2-2) H Ian Test Positive White Blood Count 12.6 K/UL (4.8-10.8) H Red Blood Count 3.50 M/UL (4.20-5.40) L Hemoglobin 9.2 G/DL (12.0-16.0) L Hematocrit 28.4 % (37.0-47.0) L Mean Corpuscular Volume 81 FL (80-99) Mean Corpuscular Hemoglobin 26.2 PG (27.0-31.0) L Mean Corpuscular Hemoglobin Concent 32.4 G/DL (32.0-36.0) Red Cell Distribution Width 19.1 % (11.6-14.8) H Platelet Count 255 K/UL (150-450) Mean Platelet Volume 5.9 FL (6.5-10.1) L Neutrophils (%) (Auto) 83.5 % (45.0-75.0) H Lymphocytes (%) (Auto) 11.2 % (20.0-45.0) L Monocytes (%) (Auto) 4.5 % (1.0-10.0) Eosinophils (%) (Auto) 0.4 % (0.0-3.0) Basophils (%) (Auto) 0.4 % (0.0-2.0) Erythrocyte Sedimentation Rate 14 MM/HR (0-30) Sodium Level 140 MMOL/L (136-145) Potassium Level 2.5 MMOL/L (3.5-5.1) *L Chloride Level 102 MMOL/L (98-107) Carbon Dioxide Level 30 MMOL/L (21-32) Anion Gap 9 mmol/L (5-15) Blood Urea Nitrogen 11 mg/dL (7-18) Creatinine 0.6 MG/DL (0.55-1.30) Estimat Glomerular Filtration Rate mL/min (>60) Glucose Level 80 MG/DL (74-106) Calcium Level 8.4 MG/DL (8.5-10.1) L Phosphorus Level 1.8 MG/DL (2.5-4.9) L Magnesium Level 1.6 MG/DL (1.8-2.4) L Total Bilirubin 0.7 MG/DL (0.2-1.0) Aspartate Amino Transf (AST/SGOT) 14 U/L (15-37) L Alanine Aminotransferase (ALT/SGPT) 13 U/L (12-78) Alkaline Phosphatase 46 U/L (46-116) C-Reactive Protein, Quantitative 0.9 mg/dL (0.00-0.90) Total Protein 5.5 G/DL (6.4-8.2) L Albumin 2.6 G/DL (3.4-5.0) L Globulin 2.9 g/dL Albumin/Globulin Ratio 0.9 (1.0-2.7) L Mendel Sierra MD Sep 23, 2018 09:52
--- NOTE | 2018-09-23 10:00 | NUR ---
NURSE NOTES: Dr. Sierra at bedside, updated on pt's status. Per MD, bronchoscopy is not needed at this time.
--- NOTE | 2018-09-23 11:05 | NUR ---
Social Work This Sw met with patient, currently in the ICU who is intubated, sedated (at this time). Patient is from [facility] [place] and will return there when ready for discharge. Patient has a POLST on file, requesting DNR/DNI. Dr. Sierra explains he spoke with patient when more alert, who is requesting full code, full treatment during this admission (please see M.D notes).
--- NOTE | 2018-09-23 11:30 | NUR ---
NURSE NOTES: sputum collected and sent down to lab.
--- NOTE | 2018-09-23 11:57 | Diagnostic Imaging Report ---
Indication: Post nasogastric tube placement Technique: Supine view of the upper abdomen Comparison: 04/09/2018 Findings: There is a nasogastric tube in place, tip projected level gastric fundus and proximal sidehole beyond the expected level of the gastroesophageal junction. There is also an endotracheal tube in good position. Visualized bowel gas appears unremarkable. There is evidence of prior vertebral augmentation procedure Impression: Satisfactory position of nasogastric tube This agrees with the preliminary interpretation provided overnight by [facility] teleradiology service.
--- NOTE | 2018-09-23 12:48 | Nephrology Progress Note ---
Assessment/Plan Problem List: (1) Respiratory failure, acute (2) Hyponatremia (3) Seizure disorder (4) Acute diastolic CHF (congestive heart failure) (5) COPD (chronic obstructive pulmonary disease) (6) Pacemaker Assessment HypoNatremia ? Etiology: depletional / Diuretics / SIADH ... bronchoscopy for left lung collapse Acute respiratory failure on BIPAP- COPD Encephalopathy due to high CO2 Pacemaker UTI Low MCV Anemia Hypoalbuminemia EjFx 55% last admission h/o Atfib Plan Plan; pulm intervention for left lung collapse- now expanded intubated Dc Diamox for now López 3% saline one time given stop lasix IV iron monitor lytes Anemia clinton solumedrol to po prednisone per orders Subjective ROS Limited/Unobtainable: Yes Objective Objective Last 24 Hour Vital Signs Date Time Temp Pulse Resp B/P (MAP) Pulse Ox O2 Delivery O2 Flow Rate FiO2 09/23/18 12:00 35 09/23/18 12:00 Mechanical Ventilator 09/23/18 12:00 66 09/23/18 12:00 98.8 73 20 149/72 (97) 100 09/23/18 11:16 67 16 35 09/23/18 11:00 68 16 142/56 (84) 100 09/23/18 10:00 63 16 132/49 (76) 100 09/23/18 09:00 69 16 126/53 (77) 100 09/23/18 08:39 70 16 35 09/23/18 08:00 69 09/23/18 08:00 Mechanical Ventilator 09/23/18 08:00 35 09/23/18 08:00 99.0 70 16 144/59 (87) 100 09/23/18 07:49 63 16 35 09/23/18 07:00 66 16 143/57 (85) 100 09/23/18 06:00 71 16 161/60 (93) 100 09/23/18 05:06 79 19 35 09/23/18 05:00 76 20 149/68 (95) 100 09/23/18 04:00 73 09/23/18 04:00 35 09/23/18 04:00 Mechanical Ventilator 09/23/18 04:00 99.3 71 18 145/58 (87) 100 09/23/18 03:11 78 17 35 09/23/18 03:00 68 17 128/33 (64) 100 09/23/18 02:00 76 16 148/65 (92) 100 09/23/18 01:10 73 16 35 09/23/18 01:00 74 16 159/62 (94) 100 09/23/18 00:00 70 09/23/18 00:00 35.0 09/23/18 00:00 99.1 70 16 136/57 (83) 99 09/23/18 00:00 Mechanical Ventilator 09/22/18 23:09 83 16 35 09/22/18 23:00 78 16 147/64 (91) 100 09/22/18 22:00 76 14 135/101 (112) 100 09/22/18 21:27 99.8 09/22/18 21:15 77 16 45 09/22/18 21:00 81 17 147/55 (85) 100 09/22/18 20:22 88 09/22/18 20:00 45.0 09/22/18 20:00 100.1 82 19 145/35 (71) 100 09/22/18 20:00 Mechanical Ventilator 09/22/18 19:00 81 20 165/98 (120) 100 09/22/18 19:00 78 16 45 09/22/18 18:00 79 22 131/62 (85) 100 09/22/18 17:00 83 16 137/67 (90) 99 09/22/18 16:47 81 16 45 09/22/18 16:18 45.0 09/22/18 16:00 Endotracheal Tube 2.0 09/22/18 16:00 35.0 09/22/18 16:00 81 09/22/18 16:00 98.0 76 17 144/63 (90) 99 09/22/18 15:00 82 21 114/53 (73) 99 09/22/18 14:30 80 16 45 09/22/18 14:00 84 16 124/92 (103) 100 09/22/18 13:00 97.0 82 16 108/48 (68) 100 09/22/18 12:45 75 16 55 Intake and Output 09/22/18 09/23/18 19:00 07:00 Intake Total 150 ml 85 ml Output Total 1080 ml 320 ml Balance -930 ml -235 ml Intake Oral 150 ml Free Water 85 ml Output Urine Total 1080 ml 320 ml Laboratory Tests 09/22/18 14:10: Arterial Blood pH 7.406, Arterial Blood Partial Pressure CO2 50.8H, Arterial Blood Partial Pressure O2 110.7H, Arterial Blood HCO3 31.2H, Arterial Blood Oxygen Saturation 97.6, Arterial Blood Base Excess 5.6H, Ian Test Positive 09/23/18 04:00: White Blood Count 12.6H, Red Blood Count 3.50L, Hemoglobin 9.2L, Hematocrit 28.4L, Mean Corpuscular Volume 81, Mean Corpuscular Hemoglobin 26.2L, Mean Corpuscular Hemoglobin Concent 32.4, Red Cell Distribution Width 19.1H, Platelet Count 255, Mean Platelet Volume 5.9L, Neutrophils (%) (Auto) 83.5H, Lymphocytes (%) (Auto) 11.2L, Monocytes (%) (Auto) 4.5, Eosinophils (%) (Auto) 0.4, Basophils (%) (Auto) 0.4, Erythrocyte Sedimentation Rate 14, Sodium Level 140, Potassium Level 2.5*L, Chloride Level 102, Carbon Dioxide Level 30, Anion Gap 9, Blood Urea Nitrogen 11, Creatinine 0.6, Estimat Glomerular Filtration Rate , Glucose Level 80, Calcium Level 8.4L, Phosphorus Level 1.8L, Magnesium Level 1.6L, Total Bilirubin 0.7, Aspartate Amino Transf (AST/SGOT) 14L, Alanine Aminotransferase (ALT/SGPT) 13, Alkaline Phosphatase 46, C-Reactive Protein, Quantitative 0.9, Total Protein 5.5L, Albumin 2.6L, Globulin 2.9, Albumin/ Globulin Ratio 0.9L Height (Feet): 5 Weight (Pounds): 184 General Appearance: no apparent distress EENT: other - intubated- Vented Cardiovascular: normal rate Respiratory/Chest: decreased breath sounds Abdomen: distended Objective no change Danilo Huber MD Sep 23, 2018 12:48
--- NOTE | 2018-09-23 12:58 | Cardiac Electrophysiology PN ---
Assessment/Plan Assessment/Plan 1. 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 2. Chronic atrial fibrillation. The rate is controlled off any antiarrhythmics. On anticoagulation with Eliquis 5 mg b.i.d. 3. Severe COPD. On Solu-Medrol. 4. Diastolic congestive heart failure. 5. Diabetes. 6. Left lung collapse. Intubated on the vent. DYLAN RN Subjective Subjective In ICU intubated on the vent. Objective Last 24 Hour Vital Signs Date Time Temp Pulse Resp B/P (MAP) Pulse Ox O2 Delivery O2 Flow Rate FiO2 09/23/18 12:52 71 16 35 09/23/18 12:00 35 09/23/18 12:00 Mechanical Ventilator 09/23/18 12:00 66 09/23/18 12:00 98.8 73 20 149/72 (97) 100 09/23/18 11:16 67 16 35 09/23/18 11:00 68 16 142/56 (84) 100 09/23/18 10:00 63 16 132/49 (76) 100 09/23/18 09:00 69 16 126/53 (77) 100 09/23/18 08:39 70 16 35 09/23/18 08:00 69 09/23/18 08:00 Mechanical Ventilator 09/23/18 08:00 35 09/23/18 08:00 99.0 70 16 144/59 (87) 100 09/23/18 07:49 63 16 35 09/23/18 07:00 66 16 143/57 (85) 100 09/23/18 06:00 71 16 161/60 (93) 100 09/23/18 05:06 79 19 35 09/23/18 05:00 76 20 149/68 (95) 100 09/23/18 04:00 73 09/23/18 04:00 35 09/23/18 04:00 Mechanical Ventilator 09/23/18 04:00 99.3 71 18 145/58 (87) 100 09/23/18 03:11 78 17 35 09/23/18 03:00 68 17 128/33 (64) 100 09/23/18 02:00 76 16 148/65 (92) 100 09/23/18 01:10 73 16 35 09/23/18 01:00 74 16 159/62 (94) 100 09/23/18 00:00 70 09/23/18 00:00 35.0 09/23/18 00:00 99.1 70 16 136/57 (83) 99 09/23/18 00:00 Mechanical Ventilator 09/22/18 23:09 83 16 35 09/22/18 23:00 78 16 147/64 (91) 100 09/22/18 22:00 76 14 135/101 (112) 100 09/22/18 21:27 99.8 09/22/18 21:15 77 16 45 09/22/18 21:00 81 17 147/55 (85) 100 09/22/18 20:22 88 09/22/18 20:00 45.0 09/22/18 20:00 100.1 82 19 145/35 (71) 100 09/22/18 20:00 Mechanical Ventilator 09/22/18 19:00 81 20 165/98 (120) 100 09/22/18 19:00 78 16 45 09/22/18 18:00 79 22 131/62 (85) 100 09/22/18 17:00 83 16 137/67 (90) 99 09/22/18 16:47 81 16 45 09/22/18 16:18 45.0 09/22/18 16:00 Endotracheal Tube 2.0 09/22/18 16:00 35.0 09/22/18 16:00 81 09/22/18 16:00 98.0 76 17 144/63 (90) 99 09/22/18 15:00 82 21 114/53 (73) 99 09/22/18 14:30 80 16 45 09/22/18 14:00 84 16 124/92 (103) 100 09/22/18 13:00 97.0 82 16 108/48 (68) 100 Intake and Output 09/22/18 09/23/18 19:00 07:00 Intake Total 150 ml 85 ml Output Total 1080 ml 320 ml Balance -930 ml -235 ml Intake Oral 150 ml Free Water 85 ml Output Urine Total 1080 ml 320 ml Laboratory Tests Test 09/22/18 14:10 09/23/18 04:00 Arterial Blood pH 7.406 (7.350-7.450) Arterial Blood Partial Pressure CO2 50.8 mmHg (35.0-45.0) H Arterial Blood Partial Pressure O2 110.7 mmHg (75.0-100.0) H Arterial Blood HCO3 31.2 mmol/L (22.0-26.0) H Arterial Blood Oxygen Saturation 97.6 % (95-100) Arterial Blood Base Excess 5.6 (-2-2) H Ian Test Positive White Blood Count 12.6 K/UL (4.8-10.8) H Red Blood Count 3.50 M/UL (4.20-5.40) L Hemoglobin 9.2 G/DL (12.0-16.0) L Hematocrit 28.4 % (37.0-47.0) L Mean Corpuscular Volume 81 FL (80-99) Mean Corpuscular Hemoglobin 26.2 PG (27.0-31.0) L Mean Corpuscular Hemoglobin Concent 32.4 G/DL (32.0-36.0) Red Cell Distribution Width 19.1 % (11.6-14.8) H Platelet Count 255 K/UL (150-450) Mean Platelet Volume 5.9 FL (6.5-10.1) L Neutrophils (%) (Auto) 83.5 % (45.0-75.0) H Lymphocytes (%) (Auto) 11.2 % (20.0-45.0) L Monocytes (%) (Auto) 4.5 % (1.0-10.0) Eosinophils (%) (Auto) 0.4 % (0.0-3.0) Basophils (%) (Auto) 0.4 % (0.0-2.0) Erythrocyte Sedimentation Rate 14 MM/HR (0-30) Sodium Level 140 MMOL/L (136-145) Potassium Level 2.5 MMOL/L (3.5-5.1) *L Chloride Level 102 MMOL/L (98-107) Carbon Dioxide Level 30 MMOL/L (21-32) Anion Gap 9 mmol/L (5-15) Blood Urea Nitrogen 11 mg/dL (7-18) Creatinine 0.6 MG/DL (0.55-1.30) Estimat Glomerular Filtration Rate mL/min (>60) Glucose Level 80 MG/DL (74-106) Calcium Level 8.4 MG/DL (8.5-10.1) L Phosphorus Level 1.8 MG/DL (2.5-4.9) L Magnesium Level 1.6 MG/DL (1.8-2.4) L Total Bilirubin 0.7 MG/DL (0.2-1.0) Aspartate Amino Transf (AST/SGOT) 14 U/L (15-37) L Alanine Aminotransferase (ALT/SGPT) 13 U/L (12-78) Alkaline Phosphatase 46 U/L (46-116) C-Reactive Protein, Quantitative 0.9 mg/dL (0.00-0.90) Total Protein 5.5 G/DL (6.4-8.2) L Albumin 2.6 G/DL (3.4-5.0) L Globulin 2.9 g/dL Albumin/Globulin Ratio 0.9 (1.0-2.7) L Objective HEAD AND NECK: Mild JVD. LUNGS: Coarse rhonchi bilaterally.Decrease breath sounds on the left CARDIOVASCULAR: Irregular S1 and S2 with no gallop. ABDOMEN: Soft. EXTREMITIES: No pitting edema. Yohan Milian MD Sep 23, 2018 12:58
--- NOTE | 2018-09-23 13:00 | NUR ---
NURSE NOTES: Patient was turned and repositioned. López and oral care provided. VSS.
--- NOTE | 2018-09-23 13:31 | NUR ---
P.T Note: Pt was transferred from [facility] to ICU due to decline in medical condition. DC P.T services.
--- NOTE | 2018-09-23 15:00 | NUR ---
NURSE NOTES: Patient resting in bed with eyes closed. No acute distress noted. No s/sx of pain noted.
--- NOTE | 2018-09-23 15:28 | Diagnostic Imaging Report ---
Indication: Dyspnea Technique: One view of the chest Comparison: 09/22/2018 Findings: Interim reexpansion of previously atelectatic left lung. There is some persistent opacity at the left lung base, may reflect some consolidation, atelectasis, or pleural fluid. The right lung and pleural space remain clear. Stable satisfactory position of endotracheal tube. Interim placement of a gastric tube. Impression: Interim reexpansion of previously atelectatic left lung. Left hemidiaphragm remains obscured, likely reflecting consolidation, residual atelectasis, and/or small amount of pleural fluid Interim gastric tube placement
--- NOTE | 2018-09-23 17:00 | NUR ---
NURSE NOTES: Patient on bilateral soft wrist restraints. patient tried to pull out ETT. No skin breakdown noted. Pulses present.
--- NOTE | 2018-09-23 17:28 | General Progress Note ---
Assessment/Plan Problem List: (1) COPD (chronic obstructive pulmonary disease) ICD Codes: J44.9 - Chronic obstructive pulmonary disease, unspecified SNOMED: 22050125 Qualifiers: Qualified Codes: J44.9 - Chronic obstructive pulmonary disease, unspecified (2) Hyponatremia ICD Codes: E87.1 - Hyponatremia SNOMED: 23278910 (3) HTN (hypertension) ICD Codes: I10 - Hypertension SNOMED: 67152546 Assessment/Plan: Na corrected no evidence of adrenal insufficiency or hypothyroidism continue current management Subjective Allergies: Coded Allergies: PIPERACILLIN (Unverified Allergy, Unknown, 05/21/18) tolerates cephalosporins TAZOBACTAM (Unverified Allergy, Unknown, 03/10/18) Subjective events noted transferred to ICU Objective Last 24 Hour Vital Signs Date Time Temp Pulse Resp B/P (MAP) Pulse Ox O2 Delivery O2 Flow Rate FiO2 09/23/18 17:00 71 17 119/77 (91) 100 09/23/18 16:00 98.8 70 16 141/50 (80) 100 09/23/18 16:00 Mechanical Ventilator 09/23/18 16:00 79 09/23/18 16:00 35 09/23/18 15:00 65 16 139/58 (85) 100 09/23/18 14:39 66 16 35 09/23/18 14:00 66 18 145/53 (83) 100 09/23/18 13:00 63 16 138/52 (80) 100 09/23/18 12:52 71 16 35 09/23/18 12:00 35 09/23/18 12:00 Mechanical Ventilator 09/23/18 12:00 66 09/23/18 12:00 98.8 73 20 149/72 (97) 100 09/23/18 11:16 67 16 35 09/23/18 11:00 68 16 142/56 (84) 100 09/23/18 10:00 63 16 132/49 (76) 100 09/23/18 09:00 69 16 126/53 (77) 100 09/23/18 08:39 70 16 35 09/23/18 08:00 69 09/23/18 08:00 Mechanical Ventilator 09/23/18 08:00 35 09/23/18 08:00 99.0 70 16 144/59 (87) 100 4/24/19 07:49 63 16 35 09/23/18 07:00 66 16 143/57 (85) 100 09/23/18 06:00 71 16 161/60 (93) 100 09/23/18 05:06 79 19 35 09/23/18 05:00 76 20 149/68 (95) 100 09/23/18 04:00 73 09/23/18 04:00 35 09/23/18 04:00 Mechanical Ventilator 09/23/18 04:00 99.3 71 18 145/58 (87) 100 09/23/18 03:11 78 17 35 09/23/18 03:00 68 17 128/33 (64) 100 09/23/18 02:00 76 16 148/65 (92) 100 09/23/18 01:10 73 16 35 09/23/18 01:00 74 16 159/62 (94) 100 09/23/18 00:00 70 09/23/18 00:00 35.0 09/23/18 00:00 99.1 70 16 136/57 (83) 99 09/23/18 00:00 Mechanical Ventilator 09/22/18 23:09 83 16 35 09/22/18 23:00 78 16 147/64 (91) 100 09/22/18 22:00 76 14 135/101 (112) 100 09/22/18 21:27 99.8 09/22/18 21:15 77 16 45 09/22/18 21:00 81 17 147/55 (85) 100 09/22/18 20:22 88 09/22/18 20:00 45.0 09/22/18 20:00 100.1 82 19 145/35 (71) 100 09/22/18 20:00 Mechanical Ventilator 09/22/18 19:00 81 20 165/98 (120) 100 09/22/18 19:00 78 16 45 09/22/18 18:00 79 22 131/62 (85) 100 Intake and Output 09/22/18 09/23/18 18:59 06:59 Intake Total 150 ml 85 ml Output Total 1050 ml 330 ml Balance -900 ml -245 ml Intake Oral 150 ml Free Water 85 ml Output Urine Total 1050 ml 330 ml Laboratory Tests 09/23/18 04:00: White Blood Count 12.6H, Red Blood Count 3.50L, Hemoglobin 9.2L, Hematocrit 28.4L, Mean Corpuscular Volume 81, Mean Corpuscular Hemoglobin 26.2L, Mean Corpuscular Hemoglobin Concent 32.4, Red Cell Distribution Width 19.1H, Platelet Count 255, Mean Platelet Volume 5.9L, Neutrophils (%) (Auto) 83.5H, Lymphocytes (%) (Auto) 11.2L, Monocytes (%) (Auto) 4.5, Eosinophils (%) (Auto) 0.4, Basophils (%) (Auto) 0.4, Erythrocyte Sedimentation Rate 14, Sodium Level 140, Potassium Level 2.5*L, Chloride Level 102, Carbon Dioxide Level 30, Anion Gap 9, Blood Urea Nitrogen 11, Creatinine 0.6, Estimat Glomerular Filtration Rate , Glucose Level 80, Calcium Level 8.4L, Phosphorus Level 1.8L, Magnesium Level 1.6L, Total Bilirubin 0.7, Aspartate Amino Transf (AST/SGOT) 14L, Alanine Aminotransferase (ALT/SGPT) 13, Alkaline Phosphatase 46, C-Reactive Protein, Quantitative 0.9, Total Protein 5.5L, Albumin 2.6L, Globulin 2.9, Albumin/ Globulin Ratio 0.9L Height (Feet): 5 Weight (Pounds): 184 General Appearance: no apparent distress Neck: non-tender Cardiovascular: normal rate Respiratory/Chest: decreased breath sounds Abdomen: normal bowel sounds Objective Current Medications Medications (Trade) Dose Ordered Sig/Ibrahima Route PRN Reason Start Time Stop Time Status Last Admin Dose Admin Acetaminophen (Tylenol) 650 mg Q4H PRN ORAL Mild Pain (Pain Scale 1-3) 09/21/18 14:23 10/21/18 14:22 Acetaminophen/ Codeine Phosphate (Tylenol #3) 1 tab Q4H PRN ORAL Severe Pain (Pain Scale 7-10) 09/21/18 14:24 09/28/18 14:23 Acetaminophen/ Hydrocodone Bitart ([place] 5/325) 1 tab Q4H PRN ORAL moderate pain 09/21/18 14:27 09/28/18 14:26 Acetazolamide (Diamox) 250 mg Q8HR ORAL 09/21/18 22:00 10/19/18 21:59 09/22/18 05:59 Albuterol/ Ipratropium (Albuterol/ Ipratropium) 3 ml Q4H PRN HHN Shortness of breath 09/21/18 14:25 09/26/18 14:24 Apixaban (Eliquis) 5 mg BID ORAL 09/21/18 18:00 10/19/18 08:59 09/21/18 17:30 Dextrose (Dextrose 50%) 25 ml Q30M PRN IV Hypoglycemia 09/21/18 14:30 10/17/18 06:59 Dextrose (Dextrose 50%) 50 ml Q30M PRN IV Hypoglycemia 09/21/18 14:30 10/17/18 06:59 Docusate Sodium (Colace) 100 mg TID ORAL 09/21/18 18:00 10/19/18 08:59 09/21/18 17:30 Folic Acid (Folate) 5 mg DAILY ORAL 09/22/18 09:00 10/18/18 09:59 Ondansetron HCl (Zofran) 4 mg Q6H PRN IVP Nausea & Vomiting 09/21/18 14:24 10/21/18 14:23 Pantoprazole (Protonix) 40 mg Q12HR ORAL 09/21/18 21:00 10/18/18 20:59 09/21/18 20:21 Polyethylene Glycol (Miralax) 17 gm DAILYPRN PRN ORAL Constipation 09/21/18 14:25 10/21/18 14:24 Prednisone (predniSONE) 40 mg DAILY ORAL 09/22/18 09:00 10/20/18 08:59 Risperidone (RisperDAL) 1 mg BEDTIME ORAL 09/21/18 21:00 10/17/18 20:59 09/21/18 20:21 Temazepam (Restoril) 15 mg HSPRN PRN ORAL Insomnia 09/21/18 18:00 09/25/18 17:59 09/21/18 20:55 Thiamine HCl (Vitamin B1) 100 mg DAILY ORAL 09/22/18 09:00 10/20/18 08:59 Daniel Little MD Sep 23, 2018 17:28
--- NOTE | 2018-09-23 17:56 | Cardiology Progress Note ---
Assessment/Plan Assessment/Plan 1. Bronchospasm. 2. Possible left-sided infiltrate or pneumonia. 3. Diastolic heart failure history. 4. Permanent atrial fibrillation. 5. lung collapse 6. hs of pacer in icu thomas vent for left lugn collapse cxr today showed resolution vr seem fine bp is fien at time tiem pulm toilette abx resume eliquis since lung collapse has resolved Subjective ROS Limited/Unobtainable: Yes Subjective intubated on vent awake and responsive , denies any cp has sob Objective Last 24 Hour Vital Signs Date Time Temp Pulse Resp B/P (MAP) Pulse Ox O2 Delivery O2 Flow Rate FiO2 09/23/18 17:00 71 17 119/77 (91) 100 09/23/18 16:36 67 16 35 09/23/18 16:00 98.8 70 16 141/50 (80) 100 09/23/18 16:00 Mechanical Ventilator 09/23/18 16:00 79 09/23/18 16:00 35 09/23/18 15:00 65 16 139/58 (85) 100 09/23/18 14:39 66 16 35 09/23/18 14:00 66 18 145/53 (83) 100 09/23/18 13:00 63 16 138/52 (80) 100 09/23/18 12:52 71 16 35 09/23/18 12:00 35 09/23/18 12:00 Mechanical Ventilator 09/23/18 12:00 66 09/23/18 12:00 98.8 73 20 149/72 (97) 100 09/23/18 11:16 67 16 35 09/23/18 11:00 68 16 142/56 (84) 100 09/23/18 10:00 63 16 132/49 (76) 100 09/23/18 09:00 69 16 126/53 (77) 100 09/23/18 08:39 70 16 35 09/23/18 08:00 69 09/23/18 08:00 Mechanical Ventilator 09/23/18 08:00 35 09/23/18 08:00 99.0 70 16 144/59 (87) 100 09/23/18 07:49 63 16 35 09/23/18 07:00 66 16 143/57 (85) 100 09/23/18 06:00 71 16 161/60 (93) 100 09/23/18 05:06 79 19 35 09/23/18 05:00 76 20 149/68 (95) 100 09/23/18 04:00 73 09/23/18 04:00 35 09/23/18 04:00 Mechanical Ventilator 09/23/18 04:00 99.3 71 18 145/58 (87) 100 09/23/18 03:11 78 17 35 09/23/18 03:00 68 17 128/33 (64) 100 09/23/18 02:00 76 16 148/65 (92) 100 09/23/18 01:10 73 16 35 09/23/18 01:00 74 16 159/62 (94) 100 09/23/18 00:00 70 09/23/18 00:00 35.0 09/23/18 00:00 99.1 70 16 136/57 (83) 99 09/23/18 00:00 Mechanical Ventilator 09/22/18 23:09 83 16 35 09/22/18 23:00 78 16 147/64 (91) 100 09/22/18 22:00 76 14 135/101 (112) 100 09/22/18 21:27 99.8 09/22/18 21:15 77 16 45 09/22/18 21:00 81 17 147/55 (85) 100 09/22/18 20:22 88 09/22/18 20:00 45.0 09/22/18 20:00 100.1 82 19 145/35 (71) 100 09/22/18 20:00 Mechanical Ventilator 09/22/18 19:00 81 20 165/98 (120) 100 09/22/18 19:00 78 16 45 09/22/18 18:00 79 22 131/62 (85) 100 General Appearance: no apparent distress, on vent, patient on isolation Cardiovascular: normal rate Respiratory/Chest: lungs clear Abdomen: normal bowel sounds, non tender, soft Extremities: no swelling Intake and Output 09/22/18 09/23/18 18:59 06:59 Intake Total 150 ml 85 ml Output Total 1050 ml 330 ml Balance -900 ml -245 ml Intake Oral 150 ml Free Water 85 ml Output Urine Total 1050 ml 330 ml Laboratory Tests Test 09/23/18 04:00 White Blood Count 12.6 K/UL (4.8-10.8) H Red Blood Count 3.50 M/UL (4.20-5.40) L Hemoglobin 9.2 G/DL (12.0-16.0) L Hematocrit 28.4 % (37.0-47.0) L Mean Corpuscular Volume 81 FL (80-99) Mean Corpuscular Hemoglobin 26.2 PG (27.0-31.0) L Mean Corpuscular Hemoglobin Concent 32.4 G/DL (32.0-36.0) Red Cell Distribution Width 19.1 % (11.6-14.8) H Platelet Count 255 K/UL (150-450) Mean Platelet Volume 5.9 FL (6.5-10.1) L Neutrophils (%) (Auto) 83.5 % (45.0-75.0) H Lymphocytes (%) (Auto) 11.2 % (20.0-45.0) L Monocytes (%) (Auto) 4.5 % (1.0-10.0) Eosinophils (%) (Auto) 0.4 % (0.0-3.0) Basophils (%) (Auto) 0.4 % (0.0-2.0) Erythrocyte Sedimentation Rate 14 MM/HR (0-30) Sodium Level 140 MMOL/L (136-145) Potassium Level 2.5 MMOL/L (3.5-5.1) *L Chloride Level 102 MMOL/L (98-107) Carbon Dioxide Level 30 MMOL/L (21-32) Anion Gap 9 mmol/L (5-15) Blood Urea Nitrogen 11 mg/dL (7-18) Creatinine 0.6 MG/DL (0.55-1.30) Estimat Glomerular Filtration Rate mL/min (>60) Glucose Level 80 MG/DL (74-106) Calcium Level 8.4 MG/DL (8.5-10.1) L Phosphorus Level 1.8 MG/DL (2.5-4.9) L Magnesium Level 1.6 MG/DL (1.8-2.4) L Total Bilirubin 0.7 MG/DL (0.2-1.0) Aspartate Amino Transf (AST/SGOT) 14 U/L (15-37) L Alanine Aminotransferase (ALT/SGPT) 13 U/L (12-78) Alkaline Phosphatase 46 U/L (46-116) C-Reactive Protein, Quantitative 0.9 mg/dL (0.00-0.90) Total Protein 5.5 G/DL (6.4-8.2) L Albumin 2.6 G/DL (3.4-5.0) L Globulin 2.9 g/dL Albumin/Globulin Ratio 0.9 (1.0-2.7) L Akbar Reno MD Sep 23, 2018 17:56
--- NOTE | 2018-09-23 18:54 | NUR ---
CASE MANAGEMENT: REVIEW SI: COPD . LEFT LUNG COLLAPSE . INTUBATED ON VENT T 98.8 HR 65 RR 16 BP 139/58 SAT 100% MECH VENT FIO2 35 WBC 12.6 H/H 9.2/28.4 K 2.5 IS: K PHOS IV X1 KCl 10mEq IV X1 MAG SULFATE IV Q4HR ELIQUIS PO BID NGT FEEDING ICU STATUS DCP: PATIENT IS FROM [facility]: [facility]END[facility]
--- NOTE | 2018-09-23 18:58 | NUR ---
RESPIRATORY NOTE: Received pt on AC 16, 600VT, 35%, no PEEP. Pt intubated w/ ETT 7.5 @ 22cm lipline, secured by anchorfast. Pt alert/awake, follows commands B/S carla. rales/rhonchi, sxn small amounts of thin, frothy, clear-white secretions w/ occasional pink froth & blood clots. Both hands on soft restraints to prevent pt from self-extubation. Vent plugged into red outlet, ambubag at bedside. Pt resting comfortably, in no apparent distress at this time. Will continue to monitor pt.
--- NOTE | 2018-09-23 19:11 | NUR ---
HAND-OFF: Report given to CHARLETTE Shanks.
--- NOTE | 2018-09-23 19:30 | NUR ---
NURSE NOTES: Recvd.on a vent.orally intubated,See settings.Lungs few scatt Rh.diminished BS at bases.Sat -100%.Suctioned tk.beige sec.NS Lavaged.HOB>35'.Awake confused and disoriented.Re-oriented,Reassured.Bila. soft wrist restraints on prev.self-injury.NGT Feeding in progress.F/Cath patent.See I/O.
--- NOTE | 2018-09-23 19:41 | Internal Med Progress Note ---
Subjective Date of Service: Sep 23, 2018 Physician Name Juan Dutta Attending Physician Yonathan Mendoza MD Current Medications Medications (Trade) Dose Ordered Sig/Ibrahima Route PRN Reason Start Time Stop Time Status Last Admin Dose Admin Acetaminophen (Tylenol) 650 mg Q4H PRN ORAL Mild Pain (Pain Scale 1-3) 09/22/18 12:47 10/21/18 12:46 09/22/18 20:57 Acetaminophen/ Codeine Phosphate (Tylenol #3) 1 tab Q4H PRN ORAL ModeratePain 09/22/18 13:00 09/28/18 12:51 Acetaminophen/ Hydrocodone Bitart (Media 5/325) 1 tab Q4H PRN ORAL moderate pain 09/22/18 12:52 09/28/18 12:51 Albuterol/ Ipratropium (Albuterol/ Ipratropium) 3 ml Q4H PRN HHN Shortness of breath 09/22/18 12:48 09/26/18 12:47 Apixaban (Eliquis) 5 mg BID ORAL 09/22/18 18:00 10/19/18 08:59 09/23/18 17:41 Dextrose (Dextrose 50%) 25 ml Q30M PRN IV Hypoglycemia 09/22/18 13:00 10/17/18 06:59 Dextrose (Dextrose 50%) 50 ml Q30M PRN IV Hypoglycemia 09/22/18 13:00 10/17/18 06:59 Docusate Sodium (Colace) 100 mg TID ORAL 09/22/18 13:00 10/19/18 08:59 09/23/18 17:41 Folic Acid (Folate) 5 mg DAILY ORAL 09/23/18 09:00 10/18/18 09:59 09/23/18 08:21 Lorazepam (Ativan 2mg/ml 1ml) 2 mg Q4H PRN IV For Anxiety 09/22/18 13:00 09/29/18 12:59 09/22/18 21:01 Morphine Sulfate (Morphine Sulfate) 4 mg Q4H PRN IVP Severe pain(7-10) 09/22/18 12:58 09/29/18 12:57 09/23/18 06:10 Ondansetron HCl (Zofran) 4 mg Q6H PRN IVP Nausea & Vomiting 09/22/18 12:49 10/21/18 12:48 Pantoprazole (Protonix) 40 mg DAILY IV 09/23/18 09:00 10/23/18 08:59 09/23/18 08:21 Polyethylene Glycol (Miralax) 17 gm DAILYPRN PRN ORAL Constipation 09/22/18 12:50 10/21/18 12:49 Prednisone (predniSONE) 40 mg DAILY ORAL 09/23/18 09:00 10/20/18 08:59 09/23/18 08:21 Risperidone (RisperDAL) 1 mg BEDTIME ORAL 09/22/18 21:00 10/17/18 20:59 09/22/18 20:58 Temazepam (Restoril) 15 mg HSPRN PRN ORAL Insomnia 09/22/18 21:00 09/25/18 20:59 Thiamine HCl (Vitamin B1) 100 mg DAILY ORAL 09/23/18 09:00 10/20/18 08:59 09/23/18 08:21 Allergies: Coded Allergies: PIPERACILLIN (Unverified Allergy, Unknown, 05/21/18) tolerates cephalosporins TAZOBACTAM (Unverified Allergy, Unknown, 03/10/18) ROS Limited/Unobtainable: Yes Subjective 77 YO F admitted for respiratory distress. Now left lung opacification. Intubated and sedated. Cover for Int Jose A-DR Mendoza. ICU Objective Last Vital Signs Date Time Temp Pulse Resp B/P (MAP) Pulse Ox O2 Delivery O2 Flow Rate FiO2 09/23/18 19:00 69 16 157/68 (97) 98 09/23/18 18:56 35 09/23/18 16:00 98.8 09/23/18 16:00 Mechanical Ventilator 09/23/18 04:00 Laboratory Tests Test 09/23/18 04:00 White Blood Count 12.6 K/UL (4.8-10.8) H Red Blood Count 3.50 M/UL (4.20-5.40) L Hemoglobin 9.2 G/DL (12.0-16.0) L Hematocrit 28.4 % (37.0-47.0) L Mean Corpuscular Volume 81 FL (80-99) Mean Corpuscular Hemoglobin 26.2 PG (27.0-31.0) L Mean Corpuscular Hemoglobin Concent 32.4 G/DL (32.0-36.0) Red Cell Distribution Width 19.1 % (11.6-14.8) H Platelet Count 255 K/UL (150-450) Mean Platelet Volume 5.9 FL (6.5-10.1) L Neutrophils (%) (Auto) 83.5 % (45.0-75.0) H Lymphocytes (%) (Auto) 11.2 % (20.0-45.0) L Monocytes (%) (Auto) 4.5 % (1.0-10.0) Eosinophils (%) (Auto) 0.4 % (0.0-3.0) Basophils (%) (Auto) 0.4 % (0.0-2.0) Erythrocyte Sedimentation Rate 14 MM/HR (0-30) Sodium Level 140 MMOL/L (136-145) Potassium Level 2.5 MMOL/L (3.5-5.1) *L Chloride Level 102 MMOL/L (98-107) Carbon Dioxide Level 30 MMOL/L (21-32) Anion Gap 9 mmol/L (5-15) Blood Urea Nitrogen 11 mg/dL (7-18) Creatinine 0.6 MG/DL (0.55-1.30) Estimat Glomerular Filtration Rate mL/min (>60) Glucose Level 80 MG/DL (74-106) Calcium Level 8.4 MG/DL (8.5-10.1) L Phosphorus Level 1.8 MG/DL (2.5-4.9) L Magnesium Level 1.6 MG/DL (1.8-2.4) L Total Bilirubin 0.7 MG/DL (0.2-1.0) Aspartate Amino Transf (AST/SGOT) 14 U/L (15-37) L Alanine Aminotransferase (ALT/SGPT) 13 U/L (12-78) Alkaline Phosphatase 46 U/L (46-116) C-Reactive Protein, Quantitative 0.9 mg/dL (0.00-0.90) Total Protein 5.5 G/DL (6.4-8.2) L Albumin 2.6 G/DL (3.4-5.0) L Globulin 2.9 g/dL Albumin/Globulin Ratio 0.9 (1.0-2.7) L Intake and Output 4/23/19 4/24/19 18:59 06:59 Intake Total 150 ml 85 ml Output Total 1050 ml 330 ml Balance -900 ml -245 ml Intake Oral 150 ml Free Water 85 ml Output Urine Total 1050 ml 330 ml Objective PHYSICAL EXAMINATION: GENERAL: The patient is a well-developed and well-nourished white female, who is in moderate respiratory distress. HEENT: Eyes, pupils are equal and responsive to light and accommodation. Extraocular movements are intact. NECK: Supple without lymphadenopathy. CHEST: Mech vent; Few rales in bilateral bases, otherwise, Lungs are clear to auscultation bilaterally without wheezes CARDIOVASCULAR: Regular rhythm and rate. S1 and S2 normal without murmurs, rubs, or gallops. ABDOMEN: Soft, nontender, and nondistended. Positive bowel sounds. No evidence of hepatosplenomegaly. Currently, no rebound or guarding noted. EXTREMITIES: Negative for clubbing, cyanosis, or edema. RECTAL/GENITAL: Refused. NEUROLOGIC: Cranial nerves II through XII are grossly intact without focal deficits. Motor strength is 5/5 bilaterally. Deep tendon reflexes are 2+ plantar. Assessment/Plan Assessment/Plan ASSESSMENT: This is a 77-year-old white female with: 1. Shortness of breath. 2. Hypoxia. 3. Acute on chronic congestive heart failure. 4. Atrial flutter. 5. Hyponatremia. 6. Chronic obstructive pulmonary disease. 7. Coronary artery disease. 8. Hypertension. 9. Seizure disorder. 10. Paranoid schizophrenia. 11. Intraventricular pacemaker 12. left lung opacification-collapse per CT TREATMENT: 1. Shortness of breath/congestive heart failure. Continue mech vent per pulmonary Dr Sierra. Cardiologyconsultation has been obtained with Dr. Milian. The patient is currently receiving intravenous Lasix. We will follow recommendation of Cardiology. BNP is elevated at over greater than 5000. An echocardiogram is pending. 2. Atrial flutter. Continue Eliquis as above. 3. Hyponatremia. The patient is currently receiving intravenous fluids. 4. Chronic obstructive pulmonary disease. Continue DuoNeb nebulized as above. The patient was initially placed on BiPAP in the emergency room. A Pulmonary consultation has been obtained with Dr. Mendel Sierra. 5. Hypertension. Continue Lasix as above. 6. Seizure disorder. The patient is currently off antiseizure medication. 7. Paranoid schizophrenia. Continue Risperdal as above. Juan Dutta MD Sep 23, 2018 19:41
--- NOTE | 2018-09-23 22:00 | NUR ---
NURSE NOTES: HS Care rendered.Restless and agitated.Medicated.Pos.to comfort.Backrub with Lotion.Suctioned.Due Meds admin.
[2018-09-24] VITALS (24 sets, daily range): BP systolic 104–143; BP diastolic 37–100
--- NOTE | 2018-09-24 00:15 | NUR ---
NURSE NOTES: Repositioned kept comfortable.Suctioned.Sat.99-100%.NGT Feeding cont.Res.-0.No distress.Cont.Plan of care.
[2018-09-24] MEDS: LORazepam Inj 2mg/ml 1ml IV PRN ×2 (01:29→10:40)
--- NOTE | 2018-09-24 02:00 | NUR ---
NURSE NOTES: Medicated for restlessness and agitation.Repositioned to comfort.Suctioned.
--- NOTE | 2018-09-24 04:20 | NUR ---
NURSE NOTES: Daisha Covarrubias.Suctioned.Blood draw for cbc/cmp etc.spec.to Lab.NGT Feeding Mario.rate inc to goal.Cont.plan of care.
[2018-09-24 05:36] LABS: HEMATOCRIT 29.1 % (37.0-47.0); HEMOGLOBIN 9.4 G/DL (12.0-16.0); MEAN CORPUSCULAR VOLUME 81 FL (80-99); PLATELET COUNT 257 K/UL (150-450); RED BLOOD COUNT 3.62 M/UL (4.20-5.40); RED CELL DISTRIBUTION WIDTH 20.2 % (11.6-14.8); WHITE BLOOD COUNT 17.3 K/UL (4.8-10.8)
[2018-09-24 05:42] LABS: ALANINE AMINOTRANSFERASE 12 U/L (12-78); ALBUMIN 2.3 G/DL (3.4-5.0); ALBUMIN/GLOBULIN RATIO 0.7 (1.0-2.7); ALKALINE PHOSPHATASE 48 U/L (46-116); ANION GAP 10 mmol/L (5-15); ASPARTATE AMINO TRANSFERASE 13 U/L (15-37); BILIRUBIN,TOTAL 0.6 MG/DL (0.2-1.0); BLOOD UREA NITROGEN 12 mg/dL (7-18); CALCIUM 7.8 MG/DL (8.5-10.1); CARBON DIOXIDE 25 MMOL/L (21-32); CHLORIDE 103 MMOL/L (98-107); CREATININE 0.6 MG/DL (0.55-1.30); PHOSPHORUS 4.8 MG/DL (2.5-4.9); POTASSIUM 3.3 MMOL/L (3.5-5.1); SODIUM 138 MMOL/L (136-145)
--- NOTE | 2018-09-24 06:38 | General Progress Note ---
Assessment/Plan Problem List: (1) COPD (chronic obstructive pulmonary disease) ICD Codes: J44.9 - Chronic obstructive pulmonary disease, unspecified SNOMED: 35488948 Qualifiers: Qualified Codes: J44.9 - Chronic obstructive pulmonary disease, unspecified (2) Hyponatremia ICD Codes: E87.1 - Hyponatremia SNOMED: 25466838 (3) HTN (hypertension) ICD Codes: I10 - Hypertension SNOMED: 90474391 Assessment/Plan: Na normal on Prednisone no evidence of adrenal insufficiency or hypothyroidism continue excellent ICU care Subjective ROS Limited/Unobtainable: Yes Allergies: Coded Allergies: PIPERACILLIN (Unverified Allergy, Unknown, 05/21/18) tolerates cephalosporins TAZOBACTAM (Unverified Allergy, Unknown, 03/10/18) Subjective events noted intubated Objective Last 24 Hour Vital Signs Date Time Temp Pulse Resp B/P (MAP) Pulse Ox O2 Delivery O2 Flow Rate FiO2 09/24/18 06:00 73 16 120/37 (64) 99 09/24/18 05:00 76 16 104/50 (68) 95 09/24/18 04:57 75 16 35 09/24/18 04:00 35 09/24/18 04:00 Mechanical Ventilator 09/24/18 04:00 69 09/24/18 04:00 97.9 72 16 133/51 (78) 93 09/24/18 03:15 71 16 35 09/24/18 03:00 71 16 122/46 (71) 93 09/24/18 02:00 73 16 122/49 (73) 99 09/24/18 01:15 72 16 35 09/24/18 01:00 74 16 122/53 (76) 99 09/24/18 00:00 Mechanical Ventilator 09/24/18 00:00 97.8 81 17 137/71 (93) 99 09/24/18 00:00 35 09/24/18 00:00 81 09/23/18 23:05 73 16 35 09/23/18 23:00 70 16 137/55 (82) 100 09/23/18 22:53 97.4 09/23/18 22:00 73 16 141/55 (83) 100 09/23/18 21:30 74 16 35 09/23/18 21:00 72 16 137/74 (95) 99 09/23/18 20:00 68 09/23/18 20:00 35 09/23/18 20:00 97.4 68 16 136/52 (80) 100 09/23/18 20:00 Mechanical Ventilator 09/23/18 19:00 69 16 157/68 (97) 98 09/23/18 18:56 65 16 35 09/23/18 18:00 64 16 119/78 (92) 100 09/23/18 17:00 71 17 119/77 (91) 100 09/23/18 16:36 67 16 35 09/23/18 16:00 98.8 70 16 141/50 (80) 100 09/23/18 16:00 Mechanical Ventilator 09/23/18 16:00 79 09/23/18 16:00 35 09/23/18 15:00 65 16 139/58 (85) 100 09/23/18 14:39 66 16 35 09/23/18 14:00 66 18 145/53 (83) 100 09/23/18 13:00 63 16 138/52 (80) 100 09/23/18 12:52 71 16 35 09/23/18 12:00 35 09/23/18 12:00 Mechanical Ventilator 09/23/18 12:00 66 09/23/18 12:00 98.8 73 20 149/72 (97) 100 09/23/18 11:16 67 16 35 09/23/18 11:00 68 16 142/56 (84) 100 09/23/18 10:00 63 16 132/49 (76) 100 09/23/18 09:00 69 16 126/53 (77) 100 09/23/18 08:39 70 16 35 09/23/18 08:00 69 09/23/18 08:00 Mechanical Ventilator 09/23/18 08:00 35 09/23/18 08:00 99.0 70 16 144/59 (87) 100 09/23/18 07:49 63 16 35 09/23/18 07:00 66 16 143/57 (85) 100 Intake and Output 09/23/18 09/24/18 19:00 07:00 Intake Total 1575.0 ml 565 ml Output Total 490 ml 375 ml Balance 1085.0 ml 190 ml Free Water 60 ml 80 ml IV Total 1390.0 ml Tube Feeding 125 ml 485 ml Output Urine Total 490 ml 375 ml # Bowel Movements 1 Laboratory Tests 09/24/18 05:00: White Blood Count 17.3H, Red Blood Count 3.62L, Hemoglobin 9.4L, Hematocrit 29.1L, Mean Corpuscular Volume 81, Mean Corpuscular Hemoglobin 26.0L, Mean Corpuscular Hemoglobin Concent 32.3, Red Cell Distribution Width 20.2H, Platelet Count 257, Mean Platelet Volume 6.2L, Neutrophils (%) (Auto) , Lymphocytes (%) (Auto) , Monocytes (%) (Auto) , Eosinophils (%) (Auto) , Basophils (%) (Auto) , Neutrophils % (Manual) [Pending], Lymphocytes % (Manual) [Pending], Platelet Estimate [Pending], Platelet Morphology [Pending], Sodium Level 138, Potassium Level 3.3L, Chloride Level 103, Carbon Dioxide Level 25, Anion Gap 10, Blood Urea Nitrogen 12, Creatinine 0.6, Estimat Glomerular Filtration Rate , Glucose Level 97, Calcium Level 7.8L, Phosphorus Level 4.8, Magnesium Level 2.2, Total Bilirubin 0.6, Aspartate Amino Transf (AST/SGOT) 13L , Alanine Aminotransferase (ALT/SGPT) 12, Alkaline Phosphatase 48, Total Protein 5.4L, Albumin 2.3L, Globulin 3.1, Albumin/Globulin Ratio 0.7L Height (Feet): 5 Weight (Pounds): 174 General Appearance: moderate distress Neck: normal alignment Cardiovascular: normal rate Respiratory/Chest: decreased breath sounds Abdomen: normal bowel sounds Objective Current Medications Medications (Trade) Dose Ordered Sig/Ibrahima Route PRN Reason Start Time Stop Time Status Last Admin Dose Admin Acetaminophen (Tylenol) 650 mg Q4H PRN ORAL Mild Pain (Pain Scale 1-3) 09/22/18 12:47 10/21/18 12:46 09/22/18 20:57 Acetaminophen/ Codeine Phosphate (Tylenol #3) 1 tab Q4H PRN ORAL ModeratePain 09/22/18 13:00 09/28/18 12:51 Acetaminophen/ Hydrocodone Bitart ([place] 5/325) 1 tab Q4H PRN ORAL moderate pain 09/22/18 12:52 09/28/18 12:51 Albuterol/ Ipratropium (Albuterol/ Ipratropium) 3 ml Q4H PRN HHN Shortness of breath 09/22/18 12:48 09/26/18 12:47 Apixaban (Eliquis) 5 mg BID ORAL 09/22/18 18:00 10/19/18 08:59 09/23/18 17:41 Dextrose (Dextrose 50%) 25 ml Q30M PRN IV Hypoglycemia 09/22/18 13:00 10/17/18 06:59 Dextrose (Dextrose 50%) 50 ml Q30M PRN IV Hypoglycemia 09/22/18 13:00 10/17/18 06:59 Docusate Sodium (Colace) 100 mg TID ORAL 09/22/18 13:00 10/19/18 08:59 09/23/18 17:41 Folic Acid (Folate) 5 mg DAILY ORAL 09/23/18 09:00 10/18/18 09:59 09/23/18 08:21 Lorazepam (Ativan 2mg/ml 1ml) 2 mg Q4H PRN IV For Anxiety 09/22/18 13:00 09/29/18 12:59 09/24/18 01:29 Morphine Sulfate (Morphine Sulfate) 4 mg Q4H PRN IVP Severe pain(7-10) 09/22/18 12:58 09/29/18 12:57 09/23/18 22:13 Ondansetron HCl (Zofran) 4 mg Q6H PRN IVP Nausea & Vomiting 09/22/18 12:49 10/21/18 12:48 Pantoprazole (Protonix) 40 mg DAILY IV 09/23/18 09:00 10/23/18 08:59 09/23/18 08:21 Polyethylene Glycol (Miralax) 17 gm DAILYPRN PRN ORAL Constipation 09/22/18 12:50 10/21/18 12:49 Prednisone (predniSONE) 40 mg DAILY ORAL 09/23/18 09:00 10/20/18 08:59 09/23/18 08:21 Risperidone (RisperDAL) 1 mg BEDTIME ORAL 09/22/18 21:00 10/17/18 20:59 09/23/18 21:15 Temazepam (Restoril) 15 mg HSPRN PRN ORAL Insomnia 09/22/18 21:00 09/25/18 20:59 Thiamine HCl (Vitamin B1) 100 mg DAILY ORAL 09/23/18 09:00 10/20/18 08:59 09/23/18 08:21 Daniel Little MD Sep 24, 2018 06:38
--- NOTE | 2018-09-24 06:46 | NUR ---
RESPIRATORY NOTE: Received pt on AC 16, 600ml, 35%, no PEEP. Pt intubated w/ ETT 7.5 @ 22cm lipline, secured by anchor fast. Pt alert/awake, follows commands. B/S carla. rales/rhonchi heard upon auscultation , sxn small amounts of thin, frothy, white secretions with small clots without incidents. Both hands on soft restraints to prevent pt from self-extubation. Alarms are set and audible, vent circuits and sxn tube are secured and out of the way. Vent plugged into red outlet, ambu bag at bedside. Pt resting comfortably, in no apparent distress at this time. Will continue to monitor pt.
--- NOTE | 2018-09-24 07:03 | NUR ---
NURSE NOTES: Received pt from CHARLETTE Shanks. patient is orally intubated with ETT 7.5/22cm at lip line. AC 16/TV 600/Fio2 45%/PEEP 0. Breathing even and unlabored. rales and rhonchi heard bilateral b/s. Left wrist 20G asymptomatic and patent. NGT running glucerna 1.2@55ml/hr, no residual, hob 35 degrees. F/C draining cloudy phoebe colored urine to gravity. left chest is elevated with x2 pillow support. Bed locked, alarmed and in lowest position. Will continue plan of care.
--- NOTE | 2018-09-24 07:29 | NUR ---
HAND-OFF: Report given to CHARLETTE CASTANEDA.
[2018-09-24] MEDS ORDERED: Sodium Chloride for KCL Premix X 4hrs IV SCH (07:30)
--- NOTE | 2018-09-24 08:50 | NUR ---
RESPIRATORY NOTE: Placed pt on CPAP PS 10- 35%FiO2- no peep, pt didn't tolerate well. Pt got agitated, tachypneic RR> 30bpm, low spong Vt < 250ml, RSBI 200. Put pt back on AC mode with the same previous settings. CHARLETTE Beckwith made aware. Will continue to monitor pt. Addendum: 09/24/18 at 1247 by Elan Ponce RT No SOB or resp distress further noted after back on AC mode.
[2018-09-24] MEDS: Thiamine 100mg tab ORAL SCH (08:58)
[2018-09-24] MEDS: Docusate 100mg/10ml Liq ORAL SCH ×3 (08:58→17:51)
[2018-09-24] MEDS: Eliquis 2.5mg tablet ORAL SCH ×2 (08:59→17:52)
[2018-09-24] MEDS: Pantoprazole Inj IV SCH (08:59)
--- NOTE | 2018-09-24 09:20 | Diagnostic Imaging Report ---
Indication: Dyspnea Technique: One view of the chest Comparison: 09/23/2018 Findings: Stable satisfactory positions of endotracheal and nasogastric tubes. There is persistent opacity at the left lung base. The heart remains enlarged. Findings are unchanged Impression: Unchanged, over one day, findings as above.
--- NOTE | 2018-09-24 10:00 | NUR ---
NURSE NOTES: Increased FIo2 50% by RT. ABG results notified to Dr. Sierra. no new orders given.
--- NOTE | 2018-09-24 10:23 | Pulmonolgy Critical Care Note ---
Critical Care - Asmt/Plan Problems: (1) Respiratory failure, acute (2) Collapse of left lung Assessment & Plan: resolved (3) Atrial fibrillation with RVR (4) Hyponatremia (5) COPD (chronic obstructive pulmonary disease) (6) Anemia, chronic disease Respiratory: monitor respiratory rate, adjust FIO2, CXR Cardiac: continue pressors, continue to monitor HR/BP Renal: F/U I&O, check electrolytes Infectious Disease: check cultures Gastrointestinal: continue feedings/current rate Endocrine: check TSH Hematologic: monitor H/H, transfuse if hgb<8.5 Neurologic: PRN Morphine, keep patient comfortable Prophylaxis: Protonix, Heparin Notes Reviewed: cardio, renal Discussed with: nurses, consultants, keycase assemblermanager pool - Objective Last 24 Hour Vital Signs Date Time Temp Pulse Resp B/P (MAP) Pulse Ox O2 Delivery O2 Flow Rate FiO2 09/24/18 09:50 40 09/24/18 08:50 98 16 35 09/24/18 08:00 Mechanical Ventilator 09/24/18 06:46 76 16 35 09/24/18 06:00 73 16 120/37 (64) 99 09/24/18 05:00 76 16 104/50 (68) 95 09/24/18 04:57 75 16 35 09/24/18 04:00 35 09/24/18 04:00 Mechanical Ventilator 09/24/18 04:00 69 09/24/18 04:00 97.9 72 16 133/51 (78) 93 09/24/18 03:15 71 16 35 09/24/18 03:00 71 16 122/46 (71) 93 09/24/18 02:00 73 16 122/49 (73) 99 09/24/18 01:15 72 16 35 09/24/18 01:00 74 16 122/53 (76) 99 09/24/18 00:00 Mechanical Ventilator 09/24/18 00:00 97.8 81 17 137/71 (93) 99 09/24/18 00:00 35 09/24/18 00:00 81 09/23/18 23:05 73 16 35 09/23/18 23:00 70 16 137/55 (82) 100 09/23/18 22:53 97.4 09/23/18 22:00 73 16 141/55 (83) 100 4/24/19 21:30 74 16 35 09/23/18 21:00 72 16 137/74 (95) 99 09/23/18 20:00 68 09/23/18 20:00 35 09/23/18 20:00 97.4 68 16 136/52 (80) 100 09/23/18 20:00 Mechanical Ventilator 09/23/18 19:00 69 16 157/68 (97) 98 09/23/18 18:56 65 16 35 09/23/18 18:00 64 16 119/78 (92) 100 09/23/18 17:00 71 17 119/77 (91) 100 09/23/18 16:36 67 16 35 09/23/18 16:00 98.8 70 16 141/50 (80) 100 09/23/18 16:00 Mechanical Ventilator 09/23/18 16:00 79 09/23/18 16:00 35 09/23/18 15:00 65 16 139/58 (85) 100 09/23/18 14:39 66 16 35 09/23/18 14:00 66 18 145/53 (83) 100 09/23/18 13:00 63 16 138/52 (80) 100 09/23/18 12:52 71 16 35 09/23/18 12:00 35 09/23/18 12:00 Mechanical Ventilator 09/23/18 12:00 66 09/23/18 12:00 98.8 73 20 149/72 (97) 100 09/23/18 11:16 67 16 35 09/23/18 11:00 68 16 142/56 (84) 100 Status: awake Condition: critical Neck: full ROM Lungs: clear, rales Heart: HR/BP stable, HR/BP unstable Abdomen: soft, non-tender Extremities: edema Micro: Microbiology Date/Time Source Procedure Growth Status 09/23/18 11:07 Sputum Gram Stain Pending Resulted 09/23/18 11:07 Sputum Sputum Culture - Preliminary NORMAL UPPER RESPIRATORY WANDER AT 24 ... Resulted Critical Care - Subjective ROS Limited/Unobtainable: Yes Condition: critical IV Access: PICC EKG Rhythm: Sinus Tachycardia FI02: 40 Vent Support Breath Rate: 16 Vent Support Mode: AC Vent Tidal Volume: 600 Sputum Amount: Moderate PEEP: 0.0 PIP: 29 Tube Feeding Amount: 55 I&O: Intake and Output 09/23/18 09/24/18 19:00 07:00 Intake Total 1575.0 ml 620 ml Output Total 490 ml 405 ml Balance 1085.0 ml 215 ml Free Water 60 ml 80 ml IV Total 1390.0 ml Tube Feeding 125 ml 540 ml Output Urine Total 490 ml 405 ml # Bowel Movements 1 CXR: slight volume loss at left ET-Tube: 7.5 ET Position: 22 Labs: Laboratory Tests Test 09/24/18 05:00 09/24/18 09:32 White Blood Count 17.3 K/UL (4.8-10.8) H Red Blood Count 3.62 M/UL (4.20-5.40) L Hemoglobin 9.4 G/DL (12.0-16.0) L Hematocrit 29.1 % (37.0-47.0) L Mean Corpuscular Volume 81 FL (80-99) Mean Corpuscular Hemoglobin 26.0 PG (27.0-31.0) L Mean Corpuscular Hemoglobin Concent 32.3 G/DL (32.0-36.0) Red Cell Distribution Width 20.2 % (11.6-14.8) H Platelet Count 257 K/UL (150-450) Mean Platelet Volume 6.2 FL (6.5-10.1) L Neutrophils (%) (Auto) % (45.0-75.0) Lymphocytes (%) (Auto) % (20.0-45.0) Monocytes (%) (Auto) % (1.0-10.0) Eosinophils (%) (Auto) % (0.0-3.0) Basophils (%) (Auto) % (0.0-2.0) Differential Total Cells Counted 100 Neutrophils % (Manual) 87 % (45-75) H Lymphocytes % (Manual) 9 % (20-45) L Monocytes % (Manual) 4 % (1-10) Eosinophils % (Manual) 0 % (0-3) Basophils % (Manual) 0 % (0-2) Band Neutrophils 0 % (0-8) Platelet Estimate Adequate Platelet Morphology Normal Anisocytosis 1+ Sodium Level 138 MMOL/L (136-145) Potassium Level 3.3 MMOL/L (3.5-5.1) L Chloride Level 103 MMOL/L (98-107) Carbon Dioxide Level 25 MMOL/L (21-32) Anion Gap 10 mmol/L (5-15) Blood Urea Nitrogen 12 mg/dL (7-18) Creatinine 0.6 MG/DL (0.55-1.30) Estimat Glomerular Filtration Rate mL/min (>60) Glucose Level 97 MG/DL (74-106) Calcium Level 7.8 MG/DL (8.5-10.1) L Phosphorus Level 4.8 MG/DL (2.5-4.9) Magnesium Level 2.2 MG/DL (1.8-2.4) Total Bilirubin 0.6 MG/DL (0.2-1.0) Aspartate Amino Transf (AST/SGOT) 13 U/L (15-37) L Alanine Aminotransferase (ALT/SGPT) 12 U/L (12-78) Alkaline Phosphatase 48 U/L (46-116) Total Protein 5.4 G/DL (6.4-8.2) L Albumin 2.3 G/DL (3.4-5.0) L Globulin 3.1 g/dL Albumin/Globulin Ratio 0.7 (1.0-2.7) L Arterial Blood pH 7.496 (7.350-7.450) Arterial Blood Partial Pressure CO2 30.7 mmHg (35.0-45.0) L Arterial Blood Partial Pressure O2 50.4 mmHg (75.0-100.0) L Arterial Blood HCO3 23.2 mmol/L (22.0-26.0) Arterial Blood Oxygen Saturation 85.1 % (95-100) *L Arterial Blood Base Excess 0.4 (-2-2) Ian Test Positive Mendel Sierra MD Sep 24, 2018 10:23
--- NOTE | 2018-09-24 10:28 | Cardiac Electrophysiology PN ---
Assessment/Plan Assessment/Plan 1. 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 Has intermittent ventricular pacing. 2. Chronic atrial fibrillation. Rate controlled off any antiarrhythmics. On Eliquis 5 mg b.i.d. Needs to DC if needs tracheostomy or Bronchoscopy 3. Severe COPD. On Solu-Medrol. 4. Diastolic congestive heart failure. 5. Diabetes. 6. Left lung collapse. Intubated on the vent. DYLAN RN and Dr Sierra Subjective Subjective In ICU intubated on the vent.In atrial fib with occasional V pacing Objective Last 24 Hour Vital Signs Date Time Temp Pulse Resp B/P (MAP) Pulse Ox O2 Delivery O2 Flow Rate FiO2 09/24/18 09:50 40 09/24/18 08:50 98 16 35 09/24/18 08:00 40 09/24/18 08:00 Mechanical Ventilator 09/24/18 06:46 76 16 35 09/24/18 06:00 73 16 120/37 (64) 99 09/24/18 05:00 76 16 104/50 (68) 95 09/24/18 04:57 75 16 35 09/24/18 04:00 35 09/24/18 04:00 Mechanical Ventilator 09/24/18 04:00 69 09/24/18 04:00 97.9 72 16 133/51 (78) 93 09/24/18 03:15 71 16 35 09/24/18 03:00 71 16 122/46 (71) 93 09/24/18 02:00 73 16 122/49 (73) 99 09/24/18 01:15 72 16 35 09/24/18 01:00 74 16 122/53 (76) 99 09/24/18 00:00 Mechanical Ventilator 09/24/18 00:00 97.8 81 17 137/71 (93) 99 09/24/18 00:00 35 09/24/18 00:00 81 09/23/18 23:05 73 16 35 09/23/18 23:00 70 16 137/55 (82) 100 09/23/18 22:53 97.4 09/23/18 22:00 73 16 141/55 (83) 100 09/23/18 21:30 74 16 35 09/23/18 21:00 72 16 137/74 (95) 99 09/23/18 20:00 68 09/23/18 20:00 35 09/23/18 20:00 97.4 68 16 136/52 (80) 100 09/23/18 20:00 Mechanical Ventilator 09/23/18 19:00 69 16 157/68 (97) 98 09/23/18 18:56 65 16 35 09/23/18 18:00 64 16 119/78 (92) 100 09/23/18 17:00 71 17 119/77 (91) 100 09/23/18 16:36 67 16 35 09/23/18 16:00 98.8 70 16 141/50 (80) 100 09/23/18 16:00 Mechanical Ventilator 09/23/18 16:00 79 09/23/18 16:00 35 09/23/18 15:00 65 16 139/58 (85) 100 09/23/18 14:39 66 16 35 09/23/18 14:00 66 18 145/53 (83) 100 09/23/18 13:00 63 16 138/52 (80) 100 09/23/18 12:52 71 16 35 09/23/18 12:00 35 09/23/18 12:00 Mechanical Ventilator 09/23/18 12:00 66 09/23/18 12:00 98.8 73 20 149/72 (97) 100 09/23/18 11:16 67 16 35 09/23/18 11:00 68 16 142/56 (84) 100 Intake and Output 09/23/18 09/24/18 19:00 07:00 Intake Total 1575.0 ml 620 ml Output Total 490 ml 405 ml Balance 1085.0 ml 215 ml Free Water 60 ml 80 ml IV Total 1390.0 ml Tube Feeding 125 ml 540 ml Output Urine Total 490 ml 405 ml # Bowel Movements 1 Laboratory Tests Test 09/24/18 05:00 09/24/18 09:32 White Blood Count 17.3 K/UL (4.8-10.8) H Red Blood Count 3.62 M/UL (4.20-5.40) L Hemoglobin 9.4 G/DL (12.0-16.0) L Hematocrit 29.1 % (37.0-47.0) L Mean Corpuscular Volume 81 FL (80-99) Mean Corpuscular Hemoglobin 26.0 PG (27.0-31.0) L Mean Corpuscular Hemoglobin Concent 32.3 G/DL (32.0-36.0) Red Cell Distribution Width 20.2 % (11.6-14.8) H Platelet Count 257 K/UL (150-450) Mean Platelet Volume 6.2 FL (6.5-10.1) L Neutrophils (%) (Auto) % (45.0-75.0) Lymphocytes (%) (Auto) % (20.0-45.0) Monocytes (%) (Auto) % (1.0-10.0) Eosinophils (%) (Auto) % (0.0-3.0) Basophils (%) (Auto) % (0.0-2.0) Differential Total Cells Counted 100 Neutrophils % (Manual) 87 % (45-75) H Lymphocytes % (Manual) 9 % (20-45) L Monocytes % (Manual) 4 % (1-10) Eosinophils % (Manual) 0 % (0-3) Basophils % (Manual) 0 % (0-2) Band Neutrophils 0 % (0-8) Platelet Estimate Adequate Platelet Morphology Normal Anisocytosis 1+ Sodium Level 138 MMOL/L (136-145) Potassium Level 3.3 MMOL/L (3.5-5.1) L Chloride Level 103 MMOL/L (98-107) Carbon Dioxide Level 25 MMOL/L (21-32) Anion Gap 10 mmol/L (5-15) Blood Urea Nitrogen 12 mg/dL (7-18) Creatinine 0.6 MG/DL (0.55-1.30) Estimat Glomerular Filtration Rate mL/min (>60) Glucose Level 97 MG/DL (74-106) Calcium Level 7.8 MG/DL (8.5-10.1) L Phosphorus Level 4.8 MG/DL (2.5-4.9) Magnesium Level 2.2 MG/DL (1.8-2.4) Total Bilirubin 0.6 MG/DL (0.2-1.0) Aspartate Amino Transf (AST/SGOT) 13 U/L (15-37) L Alanine Aminotransferase (ALT/SGPT) 12 U/L (12-78) Alkaline Phosphatase 48 U/L (46-116) Total Protein 5.4 G/DL (6.4-8.2) L Albumin 2.3 G/DL (3.4-5.0) L Globulin 3.1 g/dL Albumin/Globulin Ratio 0.7 (1.0-2.7) L Arterial Blood pH 7.496 (7.350-7.450) Arterial Blood Partial Pressure CO2 30.7 mmHg (35.0-45.0) L Arterial Blood Partial Pressure O2 50.4 mmHg (75.0-100.0) L Arterial Blood HCO3 23.2 mmol/L (22.0-26.0) Arterial Blood Oxygen Saturation 85.1 % (95-100) *L Arterial Blood Base Excess 0.4 (-2-2) Ian Test Positive Microbiology Date/Time Source Procedure Growth Status 09/23/18 11:07 Sputum Gram Stain Pending Resulted 09/23/18 11:07 Sputum Sputum Culture - Preliminary NORMAL UPPER RESPIRATORY WANDER AT 24 ... Resulted Objective HEAD AND NECK: Mild JVD. LUNGS: Coarse rhonchi bilaterally. Decrease breath sounds on the left CARDIOVASCULAR: Irregular S1 and S2 with no gallop. ABDOMEN: Soft. EXTREMITIES: No pitting edema. Yohan Milian MD Sep 24, 2018 10:28
--- NOTE | 2018-09-24 10:45 | NUR ---
NURSE NOTES: Pt observed agitated, and restless, pulling on restraints. Ativan 2mg IVP given as per ordered. Will monitor closely.
--- NOTE | 2018-09-24 11:12 | NUR ---
RADIOLOGY DEPT., CHEST X-RAY DONE.-P.DYE
--- NOTE | 2018-09-24 11:17 | Consultation ---
History of Present Illness General Date patient seen: Sep 24, 2018 Chief Complaint: Dyspnea/Respdistress Present Illness HPI 77 y/o F with hx of severe COPD, dCHF, CAD s/p stents, GERD, CVA/TIA, b/l hip replacement, HTN, atrial flutter s/p PPM, L DVT, seizure disorder, depression/ schizophrenia, history of alcohol abuse, recurrent admissions, UTI, CONS bacteremia, SNF resident presents to ED on 09/16 with SOB, hypoxia tot he 80s. Found to be on acute CHF exacerbation/pulmonary edema and was placed on Bipap and admitted to [facility]. On 09/22 required intubation as respiratory status was not improving. Denied f/c, CP, dizziness/lightheadedness , n/v/d, diarrhea upon admission. Of note, patient admitted here from 07/28-08/01 with acute respiratirt failure requiring Bipap Also previously admitted here for probable Legionella PNA and proteus UTI (2017) and for CHF exacerbation and PNA on 05/2018 Abx: IV Vancomycin 07/29- Assessment: Acute on chronic CHF excerbation Acute respiratory failure, s/p Bipap, now on VM -CXR: Cardiomegaly, with bilateral interstitial and airspace edema and bilateral pleural effusions Gram positive bacteremia- (hx of recurrent CONS bacteremia in the past)- ?r/o PPM infection -07/28 Bcx 07/06 CONS; 07/29 Bcx NTD -2d echo: no obvious vegetation Afebrile NO leukocytosis hx of UTI Proteus mirabilis 04/2018 hx of recent probable Legionella Pneumonia, Legionella 04/2018, s/p Rx SP VDRF, 04/10 Sp extubated Legionella Ur Ag: Neg, Legionella IgM + / IgG - Scx: No sig growth Flu screen negative Atrial flutter dCHF COPD CAD s/p stents Hypertension Seizure disorder Schizophrenia Depression History of intraventricular pacemaker implantation GERD CVA/TIA b/l hip replacement hx of L DVT history of alcohol abuse hx of recurrent admissions hx of high grade CONS bacteremia (JIMY neg 09/2017) -also on 05/2018 SNF resident Plan: -Continue empiric IV Vancomycin # 4 for CONS bacteremia -f/u repeat Bcx x2 -May need JIMY (given recurrent CONS bacteremia and presence of PPM) -f/u cx -Monitor CBC/CMP, temperatures - 08/01 Called Micro lab to speciate the CoNS in the recent blood Cx (in the past pt had Staph hominis) Allergies: Coded Allergies: PIPERACILLIN (Unverified Allergy, Unknown, 05/21/18) tolerates cephalosporins TAZOBACTAM (Unverified Allergy, Unknown, 03/10/18) Medication History Scheduled Apixaban (Eliquis), 5 MG ORAL BID Apixaban (Eliquis), 5 MG PO EVERY 12 HOURS, (Reported) Docusate Sodium (Docusate Sodium), 100 MG ORAL DAILY, (Reported) Furosemide* (Lasix*), 40 MG ORAL TWICE A DAY Furosemide* (Lasix*), 40 MG ORAL EVERY 8 HOURS Magnesium Hydroxide (Milk of Magnesia), 30 ML ORAL DAILY, (Reported) Pantoprazole* (Protonix*), 40 MG ORAL EVERY 12 HOURS Potassium Chloride (Potassium Chloride), 10 MEQ ORAL DAILY, (Reported) Risperidone* (Risperdal*), 1 MG ORAL BEDTIME Scheduled PRN Acetaminophen With Codeine (T#3) (Tylenol #3 Tab*), 1 TAB ORAL Q4H PRN for For Pain, (Reported) Acetaminophen With Codeine (T#3) (Tylenol #3 Tab*), 1 TAB ORAL Q4H PRN for Severe Pain (Pain Scale 7-10), (Reported) Acetaminophen* (Acetaminophen 325MG Tablet*), 325 MG ORAL Q4H PRN for Fever/ Headache/Mild Pain, (Reported) Acetaminophen* (Acetaminophen 325MG Tablet*), 650 MG ORAL Q4H PRN for Mild Pain (Pain Scale 1-3), (Reported) Acetaminophen* (Acetaminophen 325MG Tablet*), 325 MG ORAL Q4H PRN for Prn Headache/Temp > 101, (Reported) Albuterol Sulfate* (Albuterol Sulfate Hhn*), 3 ML INH Q6H PRN for Shortness of Breath, (Reported) Hydrocodone Bit/Acetaminophen 5-325* ([place] 5-325*), 1 TAB ORAL Q4H PRN Ipratropium/Albuterol Sulfate (DuoNeb 0.5-3(2.5)mg/3ml), 3 ML HHN Q4HR PRN for Shortness of breath, (Reported) Polyethylene Glycol* (Miralax*), 17 GM ORAL DAILYPRN PRN Temazepam* (Restoril*), 15 MG ORAL HSPRN PRN [HYDROcodone/Acetamin 10/325], 1 TAB ORAL Q4H PRN Miscellaneous Medications Bisacodyl (Dulcolax), 10 MG RC, (Reported) Sennosides (Senna), 8.8 MG PO, (Reported) Patient History Healthcare decision maker Resuscitation status Do Not Resuscitate Advanced Directive on File No Patient History Narrative Pmhx: as above Shx: Denies current smoking, alcohol use, drug use; Smoked 30 years ago. She used to drink 30 years ago as well.. The patient is single and is a resident [facility] Fhx: non contributory Review of Systems All Other Systems: negative except mentioned in HPI Physical Exam Physical Exam Narrative GENERAL: Shows to be elderly female, in no respiratory distress. NECK: Supple. No jugular venous distention. LUNGS: Inspiratory and expiratory wheezes. CARDIAC: Irregularly irregular. No heaves, thrills, or gallops noted. ABDOMEN: Soft, nontender. Positive bowel sounds. EXTREMITIES: There is no clubbing, cyanosis, or edema. NEUROLOGICAL: She is awake, alert, responsive. Last 24 Hour Vital Signs Date Time Temp Pulse Resp B/P (MAP) Pulse Ox O2 Delivery O2 Flow Rate FiO2 09/24/18 09:50 40 09/24/18 08:50 98 16 35 09/24/18 08:00 40 09/24/18 08:00 Mechanical Ventilator 09/24/18 06:46 76 16 35 09/24/18 06:00 73 16 120/37 (64) 99 09/24/18 05:00 76 16 104/50 (68) 95 09/24/18 04:57 75 16 35 09/24/18 04:00 35 09/24/18 04:00 Mechanical Ventilator 09/24/18 04:00 69 09/24/18 04:00 97.9 72 16 133/51 (78) 93 09/24/18 03:15 71 16 35 09/24/18 03:00 71 16 122/46 (71) 93 09/24/18 02:00 73 16 122/49 (73) 99 09/24/18 01:15 72 16 35 09/24/18 01:00 74 16 122/53 (76) 99 09/24/18 00:00 Mechanical Ventilator 09/24/18 00:00 97.8 81 17 137/71 (93) 99 09/24/18 00:00 35 09/24/18 00:00 81 09/23/18 23:05 73 16 35 09/23/18 23:00 70 16 137/55 (82) 100 09/23/18 22:53 97.4 09/23/18 22:00 73 16 141/55 (83) 100 09/23/18 21:30 74 16 35 09/23/18 21:00 72 16 137/74 (95) 99 09/23/18 20:00 68 09/23/18 20:00 35 09/23/18 20:00 97.4 68 16 136/52 (80) 100 09/23/18 20:00 Mechanical Ventilator 09/23/18 19:00 69 16 157/68 (97) 98 09/23/18 18:56 65 16 35 09/23/18 18:00 64 16 119/78 (92) 100 09/23/18 17:00 71 17 119/77 (91) 100 09/23/18 16:36 67 16 35 09/23/18 16:00 98.8 70 16 141/50 (80) 100 09/23/18 16:00 Mechanical Ventilator 09/23/18 16:00 79 09/23/18 16:00 35 09/23/18 15:00 65 16 139/58 (85) 100 09/23/18 14:39 66 16 35 09/23/18 14:00 66 18 145/53 (83) 100 09/23/18 13:00 63 16 138/52 (80) 100 09/23/18 12:52 71 16 35 09/23/18 12:00 35 09/23/18 12:00 Mechanical Ventilator 09/23/18 12:00 66 09/23/18 12:00 98.8 73 20 149/72 (97) 100 09/23/18 11:16 67 16 35 09/23/18 11:00 68 16 142/56 (84) 100 Intake and Output 09/23/18 09/24/18 19:00 07:00 Intake Total 1575.0 ml 620 ml Output Total 490 ml 405 ml Balance 1085.0 ml 215 ml Free Water 60 ml 80 ml IV Total 1390.0 ml Tube Feeding 125 ml 540 ml Output Urine Total 490 ml 405 ml # Bowel Movements 1 Laboratory Tests Test 09/24/18 05:00 09/24/18 09:32 White Blood Count 17.3 K/UL (4.8-10.8) H Red Blood Count 3.62 M/UL (4.20-5.40) L Hemoglobin 9.4 G/DL (12.0-16.0) L Hematocrit 29.1 % (37.0-47.0) L Mean Corpuscular Volume 81 FL (80-99) Mean Corpuscular Hemoglobin 26.0 PG (27.0-31.0) L Mean Corpuscular Hemoglobin Concent 32.3 G/DL (32.0-36.0) Red Cell Distribution Width 20.2 % (11.6-14.8) H Platelet Count 257 K/UL (150-450) Mean Platelet Volume 6.2 FL (6.5-10.1) L Neutrophils (%) (Auto) % (45.0-75.0) Lymphocytes (%) (Auto) % (20.0-45.0) Monocytes (%) (Auto) % (1.0-10.0) Eosinophils (%) (Auto) % (0.0-3.0) Basophils (%) (Auto) % (0.0-2.0) Differential Total Cells Counted 100 Neutrophils % (Manual) 87 % (45-75) H Lymphocytes % (Manual) 9 % (20-45) L Monocytes % (Manual) 4 % (1-10) Eosinophils % (Manual) 0 % (0-3) Basophils % (Manual) 0 % (0-2) Band Neutrophils 0 % (0-8) Platelet Estimate Adequate Platelet Morphology Normal Anisocytosis 1+ Sodium Level 138 MMOL/L (136-145) Potassium Level 3.3 MMOL/L (3.5-5.1) L Chloride Level 103 MMOL/L (98-107) Carbon Dioxide Level 25 MMOL/L (21-32) Anion Gap 10 mmol/L (5-15) Blood Urea Nitrogen 12 mg/dL (7-18) Creatinine 0.6 MG/DL (0.55-1.30) Estimat Glomerular Filtration Rate mL/min (>60) Glucose Level 97 MG/DL (74-106) Calcium Level 7.8 MG/DL (8.5-10.1) L Phosphorus Level 4.8 MG/DL (2.5-4.9) Magnesium Level 2.2 MG/DL (1.8-2.4) Total Bilirubin 0.6 MG/DL (0.2-1.0) Aspartate Amino Transf (AST/SGOT) 13 U/L (15-37) L Alanine Aminotransferase (ALT/SGPT) 12 U/L (12-78) Alkaline Phosphatase 48 U/L (46-116) Total Protein 5.4 G/DL (6.4-8.2) L Albumin 2.3 G/DL (3.4-5.0) L Globulin 3.1 g/dL Albumin/Globulin Ratio 0.7 (1.0-2.7) L Arterial Blood pH 7.496 (7.350-7.450) Arterial Blood Partial Pressure CO2 30.7 mmHg (35.0-45.0) L Arterial Blood Partial Pressure O2 50.4 mmHg (75.0-100.0) L Arterial Blood HCO3 23.2 mmol/L (22.0-26.0) Arterial Blood Oxygen Saturation 85.1 % (95-100) *L Arterial Blood Base Excess 0.4 (-2-2) Ian Test Positive Microbiology Date/Time Source Procedure Growth Status 09/23/18 11:07 Sputum Gram Stain Pending Resulted 09/23/18 11:07 Sputum Sputum Culture - Preliminary NORMAL UPPER RESPIRATORY MARI AT 24 ... Resulted Height (Feet): 5 Weight (Pounds): 174 Medications Current Medications Medications (Trade) Dose Ordered Sig/Ibrahima Route PRN Reason Start Time Stop Time Status Last Admin Dose Admin Acetaminophen (Tylenol) 650 mg Q4H PRN ORAL Mild Pain (Pain Scale 1-3) 09/22/18 12:47 10/21/18 12:46 09/22/18 20:57 Acetaminophen/ Codeine Phosphate (Tylenol #3) 1 tab Q4H PRN ORAL ModeratePain 09/22/18 13:00 09/28/18 12:51 Acetaminophen/ Hydrocodone Bitart ([place] 5/325) 1 tab Q4H PRN ORAL moderate pain 09/22/18 12:52 09/28/18 12:51 Albuterol/ Ipratropium (Albuterol/ Ipratropium) 3 ml Q4H PRN HHN Shortness of breath 09/22/18 12:48 09/26/18 12:47 Apixaban (Eliquis) 5 mg BID ORAL 09/22/18 18:00 10/19/18 08:59 09/24/18 08:59 Dextrose (Dextrose 50%) 25 ml Q30M PRN IV Hypoglycemia 09/22/18 13:00 10/17/18 06:59 Dextrose (Dextrose 50%) 50 ml Q30M PRN IV Hypoglycemia 09/22/18 13:00 10/17/18 06:59 Docusate Sodium (Colace) 100 mg TID ORAL 09/22/18 13:00 10/19/18 08:59 09/24/18 08:58 Folic Acid (Folate) 5 mg DAILY ORAL 09/23/18 09:00 10/18/18 09:59 09/24/18 08:59 Lorazepam (Ativan 2mg/ml 1ml) 2 mg Q4H PRN IV For Anxiety 09/22/18 13:00 09/29/18 12:59 09/24/18 01:29 Morphine Sulfate (Morphine Sulfate) 4 mg Q4H PRN IVP Severe pain(7-10) 09/22/18 12:58 09/29/18 12:57 09/23/18 22:13 Ondansetron HCl (Zofran) 4 mg Q6H PRN IVP Nausea & Vomiting 09/22/18 12:49 10/21/18 12:48 Pantoprazole (Protonix) 40 mg DAILY IV 09/23/18 09:00 10/23/18 08:59 09/24/18 08:59 Polyethylene Glycol (Miralax) 17 gm DAILYPRN PRN ORAL Constipation 09/22/18 12:50 10/21/18 12:49 Potassium Chloride 100 ml @ 100 mls/hr Q1H IVPB 09/24/18 08:00 09/24/18 11:59 09/24/18 09:53 Prednisone (predniSONE) 40 mg DAILY ORAL 09/23/18 09:00 10/20/18 08:59 09/24/18 08:58 Risperidone (RisperDAL) 1 mg BEDTIME ORAL 09/22/18 21:00 10/17/18 20:59 09/23/18 21:15 Sodium Chloride 400 ml @ 100 mls/hr Q4H IV 09/24/18 07:30 09/24/18 11:29 09/24/18 09:00 Temazepam (Restoril) 15 mg HSPRN PRN ORAL Insomnia 09/22/18 21:00 09/25/18 20:59 Thiamine HCl (Vitamin B1) 100 mg DAILY ORAL 09/23/18 09:00 10/20/18 08:59 09/24/18 08:58 Assessment/Plan Assessment/Plan: Abx: None Assessment: Low grade fever x1 Leukocytosis, increased (on high dose steroids) -09/16 u/a 5-10, nit +, leuk +3 Bcx neg R/o Probable PNA -sp cx normal mari Acute on chronic respiratory failure s/p intubation 09/22 CHF and COPD exacerbation -09/24 CXR: There is persistent opacity at the left lung base. -09/21 CT chest: Completely atelectatic left lung. This is likely due to endobronchial occlusion by debris. However, a small pulmonary hilar mass may also be present. This finding was discussed by phone with Dr. Sierra previously. Small left pleural effusion. Trace right pleural effusion. Posterior and basilar atelectatic changes of the right lung. Single enlarged aortopulmonary window lymph node. This could be neoplastic or reactive. This is increased in size since prior study 03/13/2018. Right lung groundglass opacity, nonspecific but likely on the basis of mild pulmonary edema. Mild cardiomegaly. Pericardial effusion Hypokalemia Hx of recurrent CONS bacteremia -07/28/18 Bcx 07/06 CONS; 07/29 Bcx Neg; 08/23 BCx neg -2d echo: no obvious vegetation -05/19/18 Bcx 3/ S. hominis sp hominis; 05/21 Bc xNeg 2d eCho: no vegetations. Focal aortic valve sclerosis with reduced cusp excursion. Thickened mitral valve leaflets with reduced excursion. 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, s/p Rx SP VDRF, 04/10 Sp extubated Legionella Ur Ag: Neg, Legionella IgM + / IgG - Scx: No sig growth Flu screen negative Atrial flutter dCHF COPD CAD s/p stents Hypertension Seizure disorder Schizophrenia Depression History of intraventricular pacemaker implantation GERD CVA/TIA b/l hip replacement hx of L DVT history of alcohol abuse hx of recurrent admissions hx of high grade CONS bacteremia SNF resident Plan: -Start empiric Cefepime for probable PNA -Bcx x2, u/a w/ reflex -f/u cx -Monitor CBC/CMP, temperatures -Cdiff if diarrhea -ETT/ICU care -aspiration precautions Thank you for this consultation. Will continue to follow along with you. Discussed with Danica Lacy M.D. Sep 24, 2018 11:17
--- NOTE | 2018-09-24 12:10 | NUR ---
NURSE NOTES: turned and repositioned, kept dry and clean. Left side elevated on x2 pillow support. sxn provided, small amt thick tannish color mucous noted. Collected urine specimen and sent to lab.
[2018-09-24] MEDS ORDERED: Cefepime HCl 1 GM in D5W 55 ML IVPB SCH (13:00)
[2018-09-24 13:17] LABS: APPEARANCE,URINE VERY CLOUDY; BILIRUBIN, URINE 1+ (NEGATIVE); COLOR,URINE BROWN; GLUCOSE, URINE (UA) NEGATIVE (NEGATIVE); KETONES,URINE NEGATIVE (NEGATIVE); LEUKOCYTE ESTERASE ,URINE 3+ (NEGATIVE); NITRITE,URINE POSITIVE (NEGATIVE); PH,URINE 7 (4.5-8.0); PROTEIN,URINE 2+ (NEGATIVE); UROBILINOGEN,URINE 12 MG/DL (0.0-1.0)
--- NOTE | 2018-09-24 13:26 | Nephrology Progress Note ---
Assessment/Plan Problem List: (1) Respiratory failure, acute (2) Hyponatremia (3) Seizure disorder (4) Acute diastolic CHF (congestive heart failure) (5) COPD (chronic obstructive pulmonary disease) (6) Pacemaker Assessment HypoNatremia ? Etiology: depletional / Diuretics / SIADH ... bronchoscopy for left lung collapse Acute respiratory failure on BIPAP- COPD Encephalopathy due to high CO2 Pacemaker UTI Low MCV Anemia Hypoalbuminemia EjFx 55% last admission h/o Atfib Plan Plan; pulm intervention for left lung collapse- now expanded intubated Dc Diamox for now López 3% saline as needed stop lasix IV iron monitor lytes Anemia clinton solumedrol to po prednisone per orders Subjective ROS Limited/Unobtainable: Yes Objective Objective Last 24 Hour Vital Signs Date Time Temp Pulse Resp B/P (MAP) Pulse Ox O2 Delivery O2 Flow Rate FiO2 09/24/18 12:41 72 16 40 09/24/18 12:00 40 09/24/18 12:00 Mechanical Ventilator 09/24/18 11:24 80 16 40 09/24/18 11:00 79 16 133/62 (85) 99 09/24/18 10:00 83 17 133/62 (85) 99 09/24/18 09:50 40 09/24/18 09:00 79 16 133/55 (81) 99 09/24/18 08:50 98 16 35 09/24/18 08:00 40 09/24/18 08:00 78 16 123/47 (72) 99 09/24/18 08:00 Mechanical Ventilator 09/24/18 07:00 77 16 120/49 (72) 99 09/24/18 06:46 76 16 35 09/24/18 06:00 73 16 120/37 (64) 99 09/24/18 05:00 76 16 104/50 (68) 95 09/24/18 04:57 75 16 35 09/24/18 04:00 35 09/24/18 04:00 Mechanical Ventilator 09/24/18 04:00 69 09/24/18 04:00 97.9 72 16 133/51 (78) 93 09/24/18 03:15 71 16 35 09/24/18 03:00 71 16 122/46 (71) 93 09/24/18 02:00 73 16 122/49 (73) 99 09/24/18 01:15 72 16 35 09/24/18 01:00 74 16 122/53 (76) 99 09/24/18 00:00 Mechanical Ventilator 09/24/18 00:00 97.8 81 17 137/71 (93) 99 09/24/18 00:00 35 09/24/18 00:00 81 09/23/18 23:05 73 16 35 09/23/18 23:00 70 16 137/55 (82) 100 09/23/18 22:53 97.4 09/23/18 22:00 73 16 141/55 (83) 100 09/23/18 21:30 74 16 35 09/23/18 21:00 72 16 137/74 (95) 99 09/23/18 20:00 68 09/23/18 20:00 35 09/23/18 20:00 97.4 68 16 136/52 (80) 100 09/23/18 20:00 Mechanical Ventilator 09/23/18 19:00 69 16 157/68 (97) 98 09/23/18 18:56 65 16 35 09/23/18 18:00 64 16 119/78 (92) 100 09/23/18 17:00 71 17 119/77 (91) 100 09/23/18 16:36 67 16 35 09/23/18 16:00 98.8 70 16 141/50 (80) 100 09/23/18 16:00 Mechanical Ventilator 09/23/18 16:00 79 09/23/18 16:00 35 09/23/18 15:00 65 16 139/58 (85) 100 09/23/18 14:39 66 16 35 09/23/18 14:00 66 18 145/53 (83) 100 Intake and Output 09/23/18 09/24/18 19:00 07:00 Intake Total 1575.0 ml 620 ml Output Total 490 ml 405 ml Balance 1085.0 ml 215 ml Free Water 60 ml 80 ml IV Total 1390.0 ml Tube Feeding 125 ml 540 ml Output Urine Total 490 ml 405 ml # Bowel Movements 1 Laboratory Tests 09/24/18 05:00: White Blood Count 17.3H, Red Blood Count 3.62L, Hemoglobin 9.4L, Hematocrit 29.1L, Mean Corpuscular Volume 81, Mean Corpuscular Hemoglobin 26.0L, Mean Corpuscular Hemoglobin Concent 32.3, Red Cell Distribution Width 20.2H, Platelet Count 257, Mean Platelet Volume 6.2L, Neutrophils (%) (Auto) , Lymphocytes (%) (Auto) , Monocytes (%) (Auto) , Eosinophils (%) (Auto) , Basophils (%) (Auto) , Differential Total Cells Counted 100, Neutrophils % ( Manual) 87H, Lymphocytes % (Manual) 9L, Monocytes % (Manual) 4, Eosinophils % ( Manual) 0, Basophils % (Manual) 0, Band Neutrophils 0, Platelet Estimate Adequate, Platelet Morphology Normal, Anisocytosis 1+, Sodium Level 138, Potassium Level 3.3L, Chloride Level 103, Carbon Dioxide Level 25, Anion Gap 10 , Blood Urea Nitrogen 12, Creatinine 0.6, Estimat Glomerular Filtration Rate , Glucose Level 97, Calcium Level 7.8L, Phosphorus Level 4.8, Magnesium Level 2.2 , Total Bilirubin 0.6, Aspartate Amino Transf (AST/SGOT) 13L, Alanine Aminotransferase (ALT/SGPT) 12, Alkaline Phosphatase 48, Total Protein 5.4L, Albumin 2.3L, Globulin 3.1, Albumin/Globulin Ratio 0.7L 09/24/18 09:32: Arterial Blood pH 7.496H, Arterial Blood Partial Pressure CO2 30.7L, Arterial Blood Partial Pressure O2 50.4L, Arterial Blood HCO3 23.2, Arterial Blood Oxygen Saturation 85.1*L, Arterial Blood Base Excess 0.4, Ian Test Positive 09/24/18 12:00: Urine Color Brown, Urine Appearance Very cloudy, Urine pH 7, Urine Specific [place] 1.005, Urine Protein 2+H, Urine Glucose (UA) Negative, Urine Ketones Negative, Urine Blood 2+H, Urine Nitrite PositiveH, Urine Bilirubin 1+H, Urine Ictotest [Pending], Urine Urobilinogen 12H, Urine Leukocyte Esterase 3+H, Urine RBC [Pending], Urine WBC [Pending], Urine Squamous Epithelial Cells [Pending], Urine Bacteria [Pending] Height (Feet): 5 Weight (Pounds): 174 General Appearance: agitated EENT: other - intubated Respiratory/Chest: decreased breath sounds Abdomen: distended Objective no change Danilo Huber MD Sep 24, 2018 13:26
--- NOTE | 2018-09-24 14:20 | NUR ---
NURSE NOTES: patient resting with eyes closed. no s/sx of acute distress noted. kept dry and clean. tolerating gtf well.
--- NOTE | 2018-09-24 14:58 | NUR ---
NURSE NOTES: Patient down in Nuclear Medicine; GI BLEED SCAN. Addendum: 09/24/18 at 1500 by TONYA CORREA RN wrong patient
--- NOTE | 2018-09-24 18:47 | Cardiology Progress Note ---
Assessment/Plan Assessment/Plan 1. Bronchospasm. 2. Possible left-sided infiltrate or pneumonia. 3. Diastolic heart failure history. 4. Permanent atrial fibrillation. 5. lung collapse 6. hs of pacer in icu thomas vent for left lugn collapse cxr today showed resolution vr seem fine bp is fien at time tiem pulm toilette abx on eliquis wbc elelvated not able to wean today Subjective ROS Limited/Unobtainable: Yes Subjective intubated on vent not awake Objective Last 24 Hour Vital Signs Date Time Temp Pulse Resp B/P (MAP) Pulse Ox O2 Delivery O2 Flow Rate FiO2 09/24/18 18:00 70 16 127/100 (109) 100 09/24/18 17:00 66 17 141/48 (79) 100 09/24/18 16:31 68 16 40 09/24/18 16:00 40 09/24/18 16:00 Mechanical Ventilator 09/24/18 16:00 70 09/24/18 16:00 98.3 64 16 139/54 (82) 100 09/24/18 15:17 70 16 40 09/24/18 15:00 71 16 124/55 (78) 98 09/24/18 14:00 75 16 138/62 (87) 100 09/24/18 13:00 77 16 143/52 (82) 99 09/24/18 12:41 72 16 40 09/24/18 12:00 40 09/24/18 12:00 Mechanical Ventilator 09/24/18 12:00 99.3 76 16 138/62 (87) 100 09/24/18 12:00 77 09/24/18 11:24 80 16 40 09/24/18 11:00 79 16 133/62 (85) 99 09/24/18 10:00 83 17 133/62 (85) 99 09/24/18 09:50 40 09/24/18 09:05 40 09/24/18 09:00 79 16 133/55 (81) 99 09/24/18 08:55 40 09/24/18 08:50 98 16 35 09/24/18 08:00 40 09/24/18 08:00 74 09/24/18 08:00 78 16 123/47 (72) 99 09/24/18 08:00 Mechanical Ventilator 09/24/18 07:00 77 16 120/49 (72) 99 09/24/18 06:46 76 16 35 09/24/18 06:00 73 16 120/37 (64) 99 09/24/18 05:00 76 16 104/50 (68) 95 09/24/18 04:57 75 16 35 09/24/18 04:00 35 09/24/18 04:00 Mechanical Ventilator 09/24/18 04:00 69 09/24/18 04:00 97.9 72 16 133/51 (78) 93 09/24/18 03:15 71 16 35 09/24/18 03:00 71 16 122/46 (71) 93 09/24/18 02:00 73 16 122/49 (73) 99 09/24/18 01:15 72 16 35 09/24/18 01:00 74 16 122/53 (76) 99 09/24/18 00:00 Mechanical Ventilator 09/24/18 00:00 97.8 81 17 137/71 (93) 99 09/24/18 00:00 35 09/24/18 00:00 81 09/23/18 23:05 73 16 35 09/23/18 23:00 70 16 137/55 (82) 100 09/23/18 22:53 97.4 09/23/18 22:00 73 16 141/55 (83) 100 09/23/18 21:30 74 16 35 09/23/18 21:00 72 16 137/74 (95) 99 09/23/18 20:00 68 09/23/18 20:00 35 09/23/18 20:00 97.4 68 16 136/52 (80) 100 09/23/18 20:00 Mechanical Ventilator 09/23/18 19:00 69 16 157/68 (97) 98 09/23/18 18:56 65 16 35 General Appearance: no apparent distress, on vent, patient on isolation Neck: supple Cardiovascular: normal rate Respiratory/Chest: lungs clear Abdomen: normal bowel sounds, non tender, soft Extremities: no swelling Intake and Output 09/23/18 09/24/18 18:59 06:59 Intake Total 1550.0 ml 590 ml Output Total 470 ml 415 ml Balance 1080.0 ml 175 ml Free Water 60 ml 80 ml IV Total 1390.0 ml Tube Feeding 100 ml 510 ml Output Urine Total 470 ml 415 ml # Bowel Movements 1 Laboratory Tests Test 09/24/18 05:00 09/24/18 09:32 09/24/18 12:00 White Blood Count 17.3 K/UL (4.8-10.8) H Red Blood Count 3.62 M/UL (4.20-5.40) L Hemoglobin 9.4 G/DL (12.0-16.0) L Hematocrit 29.1 % (37.0-47.0) L Mean Corpuscular Volume 81 FL (80-99) Mean Corpuscular Hemoglobin 26.0 PG (27.0-31.0) L Mean Corpuscular Hemoglobin Concent 32.3 G/DL (32.0-36.0) Red Cell Distribution Width 20.2 % (11.6-14.8) H Platelet Count 257 K/UL (150-450) Mean Platelet Volume 6.2 FL (6.5-10.1) L Neutrophils (%) (Auto) % (45.0-75.0) Lymphocytes (%) (Auto) % (20.0-45.0) Monocytes (%) (Auto) % (1.0-10.0) Eosinophils (%) (Auto) % (0.0-3.0) Basophils (%) (Auto) % (0.0-2.0) Differential Total Cells Counted 100 Neutrophils % (Manual) 87 % (45-75) H Lymphocytes % (Manual) 9 % (20-45) L Monocytes % (Manual) 4 % (1-10) Eosinophils % (Manual) 0 % (0-3) Basophils % (Manual) 0 % (0-2) Band Neutrophils 0 % (0-8) Platelet Estimate Adequate Platelet Morphology Normal Anisocytosis 1+ Sodium Level 138 MMOL/L (136-145) Potassium Level 3.3 MMOL/L (3.5-5.1) L Chloride Level 103 MMOL/L (98-107) Carbon Dioxide Level 25 MMOL/L (21-32) Anion Gap 10 mmol/L (5-15) Blood Urea Nitrogen 12 mg/dL (7-18) Creatinine 0.6 MG/DL (0.55-1.30) Estimat Glomerular Filtration Rate mL/min (>60) Glucose Level 97 MG/DL (74-106) Calcium Level 7.8 MG/DL (8.5-10.1) L Phosphorus Level 4.8 MG/DL (2.5-4.9) Magnesium Level 2.2 MG/DL (1.8-2.4) Total Bilirubin 0.6 MG/DL (0.2-1.0) Aspartate Amino Transf (AST/SGOT) 13 U/L (15-37) L Alanine Aminotransferase (ALT/SGPT) 12 U/L (12-78) Alkaline Phosphatase 48 U/L (46-116) Total Protein 5.4 G/DL (6.4-8.2) L Albumin 2.3 G/DL (3.4-5.0) L Globulin 3.1 g/dL Albumin/Globulin Ratio 0.7 (1.0-2.7) L Arterial Blood pH 7.496 (7.350-7.450) Arterial Blood Partial Pressure CO2 30.7 mmHg (35.0-45.0) L Arterial Blood Partial Pressure O2 50.4 mmHg (75.0-100.0) L Arterial Blood HCO3 23.2 mmol/L (22.0-26.0) Arterial Blood Oxygen Saturation 85.1 % (95-100) *L Arterial Blood Base Excess 0.4 (-2-2) Ian Test Positive Urine Color Brown Urine Appearance Very cloudy Urine pH 7 (4.5-8.0) Urine Specific [place] 1.005 (1.005-1.035) Urine Protein 2+ (NEGATIVE) H Urine Glucose (UA) Negative (NEGATIVE) Urine Ketones Negative (NEGATIVE) Urine Blood 2+ (NEGATIVE) H Urine Nitrite Positive (NEGATIVE) H Urine Bilirubin 1+ (NEGATIVE) H Urine Ictotest Negative (NEGATIVE) Urine Urobilinogen 12 MG/DL (0.0-1.0) H Urine Leukocyte Esterase 3+ (NEGATIVE) H Urine RBC 2-4 /HPF (0 - 2) H Urine WBC Tntc /HPF (0 - 2) H Urine Squamous Epithelial Cells None /LPF (NONE/OCC) Urine Bacteria Many /HPF (NONE) H Microbiology Date/Time Source Procedure Growth Status 09/23/18 11:07 Sputum Gram Stain - Final Resulted 09/23/18 11:07 Sputum Sputum Culture - Preliminary NORMAL UPPER RESPIRATORY WANDER AT 24 ... Resulted Akbar Reno MD Sep 24, 2018 18:47
--- NOTE | 2018-09-24 18:52 | NUR ---
RESPIRATORY NOTE: Received pt on AC 16, 600VT, 40%, no PEEP. Pt intubated w/ ETT 7.5 @ 22cm lipline, secured by anchorfast. Pt alert/awake, follows commands. B/S carla. rales/rhonchi, sxn small amounts of thin, frothy, clear-white to pale-white secretions w/ occasional blood clots. Both hands on soft restraints to prevent pt from self-extubation. Vent plugged into red outlet, ambubag at bedside. Pt in no apparent distress at this time. Will continue to monitor pt.
--- NOTE | 2018-09-24 19:31 | NUR ---
HAND-OFF: Report given to CHARLETTE Leal using SBAR
--- NOTE | 2018-09-24 19:40 | NUR ---
NURSE NOTES: PATIENT OPEN EYES, DID NOT FOLLOWED COMMANDS, ON ETT TO VENT AC 16/ TV 600/ FIO2 40%, NO PEEP STATUS, O2 SATURATION 100% NOTED, PALPABLES PACEMAKER TO LEFT CHEST, NGT INTACT AND PATENT, ONGOING GLUCERNA 1.2 AT 55ML/HR, RESIDUE 20 ML NOTED, ABDOMEN SOFT, NON TENDER, HYPOACTIVE BOWEL SOUND TO 4 QUADRANTS, NO BOWEL MOVEMENT STATUS, F/C INTACT AND PATENT YELLOW URINE OUTED GRAVITY, KEPT 2 POINT SOFT RESTRAINTS FOR SAFETY, ELEVATED LEFT CHEST WITH 2 PILLOWS STATUS, KEPT SZ PRECAUTION AND HOB 30 DEGREE, MADE LOWER BED POSITION, PROVIDED CALL LIGHT WITHIN REACH, WILL CONTINUE TO MONITOR.
--- NOTE | 2018-09-24 20:51 | Internal Med Progress Note ---
Subjective Date of Service: Sep 24, 2018 Physician Name LuzmariaJuan Attending Physician Yonathan Mendoza MD Current Medications Medications (Trade) Dose Ordered Sig/Ibrahima Route PRN Reason Start Time Stop Time Status Last Admin Dose Admin Acetaminophen (Tylenol) 650 mg Q4H PRN ORAL Mild Pain (Pain Scale 1-3) 09/22/18 12:47 10/21/18 12:46 09/22/18 20:57 Acetaminophen/ Codeine Phosphate (Tylenol #3) 1 tab Q4H PRN ORAL ModeratePain 09/22/18 13:00 09/28/18 12:51 Acetaminophen/ Hydrocodone Bitart ([place] 5/325) 1 tab Q4H PRN ORAL moderate pain 09/22/18 12:52 09/28/18 12:51 Albuterol/ Ipratropium (Albuterol/ Ipratropium) 3 ml Q4H PRN HHN Shortness of breath 09/22/18 12:48 09/26/18 12:47 Apixaban (Eliquis) 5 mg BID ORAL 09/22/18 18:00 10/19/18 08:59 09/24/18 17:52 Cefepime HCl 1 gm/ Dextrose 55 ml @ 110 mls/hr Q24H IVPB 09/25/18 01:00 10/02/18 00:59 Dextrose (Dextrose 50%) 25 ml Q30M PRN IV Hypoglycemia 09/22/18 13:00 10/17/18 06:59 Dextrose (Dextrose 50%) 50 ml Q30M PRN IV Hypoglycemia 09/22/18 13:00 10/17/18 06:59 Docusate Sodium (Colace) 100 mg TID ORAL 09/22/18 13:00 10/19/18 08:59 09/24/18 17:51 Folic Acid (Folate) 5 mg DAILY ORAL 09/23/18 09:00 10/18/18 09:59 09/24/18 08:59 Lorazepam (Ativan 2mg/ml 1ml) 2 mg Q4H PRN IV For Anxiety 09/22/18 13:00 09/29/18 12:59 09/24/18 10:40 Morphine Sulfate (Morphine Sulfate) 4 mg Q4H PRN IVP Severe pain(7-10) 09/22/18 12:58 09/29/18 12:57 09/23/18 22:13 Ondansetron HCl (Zofran) 4 mg Q6H PRN IVP Nausea & Vomiting 09/22/18 12:49 10/21/18 12:48 Pantoprazole (Protonix) 40 mg DAILY IV 09/23/18 09:00 10/23/18 08:59 09/24/18 08:59 Polyethylene Glycol (Miralax) 17 gm DAILYPRN PRN ORAL Constipation 09/22/18 12:50 10/21/18 12:49 Prednisone (predniSONE) 40 mg DAILY ORAL 09/23/18 09:00 10/20/18 08:59 09/24/18 08:58 Risperidone (RisperDAL) 1 mg BEDTIME ORAL 09/22/18 21:00 10/17/18 20:59 09/23/18 21:15 Temazepam (Restoril) 15 mg HSPRN PRN ORAL Insomnia 09/22/18 21:00 09/25/18 20:59 Thiamine HCl (Vitamin B1) 100 mg DAILY ORAL 09/23/18 09:00 10/20/18 08:59 09/24/18 08:58 Allergies: Coded Allergies: PIPERACILLIN (Unverified Allergy, Unknown, 05/21/18) tolerates cephalosporins TAZOBACTAM (Unverified Allergy, Unknown, 03/10/18) ROS Limited/Unobtainable: Yes Subjective 77 YO F admitted for respiratory distress. Now left lung opacification. Intubated and sedated. Cover for Int Jose A-DR Mendoza. ICU Objective Last Vital Signs Date Time Temp Pulse Resp B/P (MAP) Pulse Ox O2 Delivery O2 Flow Rate FiO2 09/24/18 19:00 65 16 135/60 (85) 100 09/24/18 18:50 40 09/24/18 16:00 Mechanical Ventilator 09/24/18 16:00 98.3 09/23/18 04:00 Laboratory Tests Test 09/24/18 05:00 09/24/18 09:32 09/24/18 12:00 White Blood Count 17.3 K/UL (4.8-10.8) H Red Blood Count 3.62 M/UL (4.20-5.40) L Hemoglobin 9.4 G/DL (12.0-16.0) L Hematocrit 29.1 % (37.0-47.0) L Mean Corpuscular Volume 81 FL (80-99) Mean Corpuscular Hemoglobin 26.0 PG (27.0-31.0) L Mean Corpuscular Hemoglobin Concent 32.3 G/DL (32.0-36.0) Red Cell Distribution Width 20.2 % (11.6-14.8) H Platelet Count 257 K/UL (150-450) Mean Platelet Volume 6.2 FL (6.5-10.1) L Neutrophils (%) (Auto) % (45.0-75.0) Lymphocytes (%) (Auto) % (20.0-45.0) Monocytes (%) (Auto) % (1.0-10.0) Eosinophils (%) (Auto) % (0.0-3.0) Basophils (%) (Auto) % (0.0-2.0) Differential Total Cells Counted 100 Neutrophils % (Manual) 87 % (45-75) H Lymphocytes % (Manual) 9 % (20-45) L Monocytes % (Manual) 4 % (1-10) Eosinophils % (Manual) 0 % (0-3) Basophils % (Manual) 0 % (0-2) Band Neutrophils 0 % (0-8) Platelet Estimate Adequate Platelet Morphology Normal Anisocytosis 1+ Sodium Level 138 MMOL/L (136-145) Potassium Level 3.3 MMOL/L (3.5-5.1) L Chloride Level 103 MMOL/L (98-107) Carbon Dioxide Level 25 MMOL/L (21-32) Anion Gap 10 mmol/L (5-15) Blood Urea Nitrogen 12 mg/dL (7-18) Creatinine 0.6 MG/DL (0.55-1.30) Estimat Glomerular Filtration Rate mL/min (>60) Glucose Level 97 MG/DL (74-106) Calcium Level 7.8 MG/DL (8.5-10.1) L Phosphorus Level 4.8 MG/DL (2.5-4.9) Magnesium Level 2.2 MG/DL (1.8-2.4) Total Bilirubin 0.6 MG/DL (0.2-1.0) Aspartate Amino Transf (AST/SGOT) 13 U/L (15-37) L Alanine Aminotransferase (ALT/SGPT) 12 U/L (12-78) Alkaline Phosphatase 48 U/L (46-116) Total Protein 5.4 G/DL (6.4-8.2) L Albumin 2.3 G/DL (3.4-5.0) L Globulin 3.1 g/dL Albumin/Globulin Ratio 0.7 (1.0-2.7) L Arterial Blood pH 7.496 (7.350-7.450) Arterial Blood Partial Pressure CO2 30.7 mmHg (35.0-45.0) L Arterial Blood Partial Pressure O2 50.4 mmHg (75.0-100.0) L Arterial Blood HCO3 23.2 mmol/L (22.0-26.0) Arterial Blood Oxygen Saturation 85.1 % (95-100) *L Arterial Blood Base Excess 0.4 (-2-2) Ian Test Positive Urine Color Brown Urine Appearance Very cloudy Urine pH 7 (4.5-8.0) Urine Specific [place] 1.005 (1.005-1.035) Urine Protein 2+ (NEGATIVE) H Urine Glucose (UA) Negative (NEGATIVE) Urine Ketones Negative (NEGATIVE) Urine Blood 2+ (NEGATIVE) H Urine Nitrite Positive (NEGATIVE) H Urine Bilirubin 1+ (NEGATIVE) H Urine Ictotest Negative (NEGATIVE) Urine Urobilinogen 12 MG/DL (0.0-1.0) H Urine Leukocyte Esterase 3+ (NEGATIVE) H Urine RBC 2-4 /HPF (0 - 2) H Urine WBC Tntc /HPF (0 - 2) H Urine Squamous Epithelial Cells None /LPF (NONE/OCC) Urine Bacteria Many /HPF (NONE) H Microbiology Date/Time Source Procedure Growth Status 09/23/18 11:07 Sputum Gram Stain - Final Resulted 09/23/18 11:07 Sputum Sputum Culture - Preliminary NORMAL UPPER RESPIRATORY WANDER AT 24 ... Resulted Intake and Output 09/23/18 09/24/18 18:59 06:59 Intake Total 1550.0 ml 590 ml Output Total 470 ml 415 ml Balance 1080.0 ml 175 ml Free Water 60 ml 80 ml IV Total 1390.0 ml Tube Feeding 100 ml 510 ml Output Urine Total 470 ml 415 ml # Bowel Movements 1 Objective PHYSICAL EXAMINATION: GENERAL: The patient is a well-developed and well-nourished white female, who is in moderate respiratory distress. HEENT: Eyes, pupils are equal and responsive to light and accommodation. Extraocular movements are intact. NECK: Supple without lymphadenopathy. CHEST: Mech vent; Few rales in bilateral bases, otherwise, Lungs are clear to auscultation bilaterally without wheezes CARDIOVASCULAR: Regular rhythm and rate. S1 and S2 normal without murmurs, rubs, or gallops. ABDOMEN: Soft, nontender, and nondistended. Positive bowel sounds. No evidence of hepatosplenomegaly. Currently, no rebound or guarding noted. EXTREMITIES: Negative for clubbing, cyanosis, or edema. RECTAL/GENITAL: Refused. NEUROLOGIC: Cranial nerves II through XII are grossly intact without focal deficits. Motor strength is 5/5 bilaterally. Deep tendon reflexes are 2+ plantar. Assessment/Plan Assessment/Plan ASSESSMENT: This is a 77-year-old white female with: 1. Shortness of breath. 2. Hypoxia. 3. Acute on chronic congestive heart failure. 4. Atrial flutter. 5. Hyponatremia. 6. Chronic obstructive pulmonary disease. 7. Coronary artery disease. 8. Hypertension. 9. Seizure disorder. 10. Paranoid schizophrenia. 11. Intraventricular pacemaker 12. left lung opacification-collapse per CT TREATMENT: 1. Shortness of breath/congestive heart failure. Continue mech vent per pulmonary Dr Sierra. Cardiologyconsultation has been obtained with Dr. Milian. The patient is currently receiving intravenous Lasix. We will follow recommendation of Cardiology. BNP is elevated at over greater than 5000. An echocardiogram is pending. 2. Atrial flutter. Continue Eliquis as above. 3. Hyponatremia. The patient is currently receiving intravenous fluids. 4. Chronic obstructive pulmonary disease. Continue DuoNeb nebulized as above. The patient was initially placed on BiPAP in the emergency room. A Pulmonary consultation has been obtained with Dr. Mendel Sierra. 5. Hypertension. Continue Lasix as above. 6. Seizure disorder. The patient is currently off antiseizure medication. 7. Paranoid schizophrenia. Continue Risperdal as above. Juan Dutta MD Sep 24, 2018 20:51
[2018-09-24] MEDS: Tylenol #3 tab (300mg/30mg) ORAL PRN (21:18)
--- NOTE | 2018-09-24 21:18 | NUR ---
NURSE NOTES: PATIENT RESTLESS AND PAIN COMPLAINED THAT GIVEN TYLENOL #3, 1 TAB VIA NGT PRN ORDERED, WILL CONTINUE TO MONITOR.
--- NOTE | 2018-09-24 23:00 | NUR ---
NURSE NOTES: PATIENT SLEEPING STATUS, NO PAIN OR DISTRESS NOTED AT THIS TIME, WILL CONTINUE PLAN OF CARE.
[2018-09-25] VITALS (24 sets, daily range): BP systolic 14–134; BP diastolic 40–66
[2018-09-25] MEDS: Cefepime HCl 1 GM in D5W 55 ML IVPB SCH (01:02)
--- NOTE | 2018-09-25 02:00 | NUR ---
NURSE NOTES: REPOSITIONED, RELEASED RESTRAINTS AND REAPPLIED FOR SAFETY, NO DISTRESS NOTED AT THIS TIME.
--- NOTE | 2018-09-25 03:50 | NUR ---
NURSE NOTES: MORNING CARE WAS DONE, NO RESISTANCE TO CARE AT THIS TIME.
[2018-09-25 05:06] LABS: BASOPHILS % (AUTO) 0.3 % (0.0-2.0); EOSINOPHILS % (AUTO) 1.2 % (0.0-3.0); HEMATOCRIT 29.3 % (37.0-47.0); HEMOGLOBIN 9.4 G/DL (12.0-16.0); LYMPHOCYTES % (AUTO) 8.7 % (20.0-45.0); MEAN CORPUSCULAR VOLUME 82 FL (80-99); MONOCYTES % (AUTO) 5.6 % (1.0-10.0); NEUTROPHILS % (AUTO) 84.2 % (45.0-75.0); PLATELET COUNT 233 K/UL (150-450); RED BLOOD COUNT 3.59 M/UL (4.20-5.40); RED CELL DISTRIBUTION WIDTH 20.1 % (11.6-14.8); WHITE BLOOD COUNT 14.8 K/UL (4.8-10.8)
[2018-09-25 05:29] LABS: ALANINE AMINOTRANSFERASE 7 U/L (12-78); ALBUMIN 2.2 G/DL (3.4-5.0); ALBUMIN/GLOBULIN RATIO 0.6 (1.0-2.7); ALKALINE PHOSPHATASE 45 U/L (46-116); ANION GAP 8 mmol/L (5-15); ASPARTATE AMINO TRANSFERASE 8 U/L (15-37); BILIRUBIN,TOTAL 0.5 MG/DL (0.2-1.0); BLOOD UREA NITROGEN 14 mg/dL (7-18); CALCIUM 7.9 MG/DL (8.5-10.1); CARBON DIOXIDE 24 MMOL/L (21-32); CHLORIDE 105 MMOL/L (98-107); CREATININE 0.5 MG/DL (0.55-1.30); SODIUM 137 MMOL/L (136-145)
--- NOTE | 2018-09-25 06:30 | NUR ---
NURSE NOTES: ASLEEP STATUS, NO ACUTE DISTRESS NOTED AT THIS SHIFT.
--- NOTE | 2018-09-25 06:52 | General Progress Note ---
Assessment/Plan Problem List: (1) COPD (chronic obstructive pulmonary disease) ICD Codes: J44.9 - Chronic obstructive pulmonary disease, unspecified SNOMED: 42528674 Qualifiers: Qualified Codes: J44.9 - Chronic obstructive pulmonary disease, unspecified (2) Hyponatremia ICD Codes: E87.1 - Hyponatremia SNOMED: 54162818 (3) HTN (hypertension) ICD Codes: I10 - Hypertension SNOMED: 90623806 Assessment/Plan: Na normal on Prednisone no evidence of adrenal insufficiency or hypothyroidism continue excellent ICU care Subjective Allergies: Coded Allergies: PIPERACILLIN (Unverified Allergy, Unknown, 05/21/18) tolerates cephalosporins TAZOBACTAM (Unverified Allergy, Unknown, 03/10/18) Subjective events noted Objective Last 24 Hour Vital Signs Date Time Temp Pulse Resp B/P (MAP) Pulse Ox O2 Delivery O2 Flow Rate FiO2 09/25/18 06:00 64 16 117/51 (73) 100 09/25/18 05:00 68 16 107/51 (69) 100 09/25/18 04:58 66 16 40 09/25/18 04:00 98.3 71 16 121/55 (77) 100 09/25/18 04:00 40 09/25/18 04:00 Mechanical Ventilator 09/25/18 03:11 61 16 40 09/25/18 03:09 61 09/25/18 03:00 64 16 107/45 (65) 100 09/25/18 02:00 67 16 107/48 (67) 100 09/25/18 01:17 62 16 40 09/25/18 01:00 61 16 123/49 (73) 100 09/25/18 00:00 Mechanical Ventilator 09/25/18 00:00 64 09/25/18 00:00 98.6 64 16 115/45 (68) 99 09/25/18 00:00 40 09/24/18 23:05 65 16 40 09/24/18 23:00 67 16 105/44 (64) 100 09/24/18 22:00 82 16 112/48 (69) 99 09/24/18 21:00 75 16 121/51 (74) 100 09/24/18 20:56 79 19 40 09/24/18 20:24 79 09/24/18 20:00 40 09/24/18 20:00 99.1 75 17 137/53 (81) 100 09/24/18 20:00 Mechanical Ventilator 09/24/18 19:00 65 16 135/60 (85) 100 09/24/18 18:50 64 16 40 09/24/18 18:00 70 16 127/100 (109) 100 09/24/18 17:00 66 17 141/48 (79) 100 09/24/18 16:31 68 16 40 09/24/18 16:00 40 09/24/18 16:00 Mechanical Ventilator 09/24/18 16:00 70 09/24/18 16:00 98.3 64 16 139/54 (82) 100 09/24/18 15:17 70 16 40 09/24/18 15:00 71 16 124/55 (78) 98 09/24/18 14:00 75 16 138/62 (87) 100 09/24/18 13:00 77 16 143/52 (82) 99 09/24/18 12:41 72 16 40 09/24/18 12:00 40 09/24/18 12:00 Mechanical Ventilator 09/24/18 12:00 99.3 76 16 138/62 (87) 100 09/24/18 12:00 77 09/24/18 11:24 80 16 40 09/24/18 11:00 79 16 133/62 (85) 99 09/24/18 10:00 83 17 133/62 (85) 99 09/24/18 09:50 40 09/24/18 09:05 40 09/24/18 09:00 79 16 133/55 (81) 99 09/24/18 08:55 40 09/24/18 08:50 98 16 35 09/24/18 08:00 40 09/24/18 08:00 74 09/24/18 08:00 78 16 123/47 (72) 99 09/24/18 08:00 Mechanical Ventilator 09/24/18 07:00 77 16 120/49 (72) 99 Intake and Output 09/24/18 09/25/18 19:00 07:00 Intake Total 900 ml 740 ml Output Total 370 ml 400 ml Balance 530 ml 340 ml Free Water 120 ml IV Total 55 ml Tube Feeding 660 ml 605 ml Other 120 ml 80 ml Output Urine Total 370 ml 400 ml # Bowel Movements 2 Laboratory Tests 09/24/18 09:32: Arterial Blood pH 7.496H, Arterial Blood Partial Pressure CO2 30.7L, Arterial Blood Partial Pressure O2 50.4L, Arterial Blood HCO3 23.2, Arterial Blood Oxygen Saturation 85.1*L, Arterial Blood Base Excess 0.4, Ian Test Positive 09/24/18 12:00: Urine Color Brown, Urine Appearance Very cloudy, Urine pH 7, Urine Specific [place] 1.005, Urine Protein 2+H, Urine Glucose (UA) Negative, Urine Ketones Negative, Urine Blood 2+H, Urine Nitrite PositiveH, Urine Bilirubin 1+H, Urine Ictotest Negative, Urine Urobilinogen 12H, Urine Leukocyte Esterase 3+H, Urine RBC 2-4H, Urine WBC TntcH, Urine Squamous Epithelial Cells None, Urine Bacteria ManyH 09/25/18 04:05: White Blood Count 14.8H, Red Blood Count 3.59L, Hemoglobin 9.4L, Hematocrit 29.3L, Mean Corpuscular Volume 82, Mean Corpuscular Hemoglobin 26.2L, Mean Corpuscular Hemoglobin Concent 32.1, Red Cell Distribution Width 20.1H, Platelet Count 233, Mean Platelet Volume 6.9, Neutrophils (%) (Auto) 84.2H, Lymphocytes (%) (Auto) 8.7L, Monocytes (%) (Auto) 5.6, Eosinophils (%) (Auto) 1.2, Basophils (%) (Auto) 0.3, Sodium Level 137, Potassium Level 4.0, Chloride Level 105, Carbon Dioxide Level 24, Anion Gap 8, Blood Urea Nitrogen 14, Creatinine 0.5L, Estimat Glomerular Filtration Rate , Glucose Level 99, Calcium Level 7.9L, Phosphorus Level 4.0, Magnesium Level 2.2, Total Bilirubin 0.5, Aspartate Amino Transf (AST/SGOT) 8L, Alanine Aminotransferase (ALT/SGPT) 7L, Alkaline Phosphatase 45L, Total Protein 5.6L, Albumin 2.2L, Globulin 3.4, Albumin/Globulin Ratio 0.6L Height (Feet): 5 Weight (Pounds): 175 General Appearance: no apparent distress Neck: non-tender Cardiovascular: normal rate Respiratory/Chest: decreased breath sounds Abdomen: normal bowel sounds Objective Current Medications Medications (Trade) Dose Ordered Sig/Ibrahima Route PRN Reason Start Time Stop Time Status Last Admin Dose Admin Acetaminophen (Tylenol) 650 mg Q4H PRN ORAL Mild Pain (Pain Scale 1-3) 09/22/18 12:47 10/21/18 12:46 09/22/18 20:57 Acetaminophen/ Codeine Phosphate (Tylenol #3) 1 tab Q4H PRN ORAL ModeratePain 09/22/18 13:00 09/28/18 12:51 09/24/18 21:18 Acetaminophen/ Hydrocodone Bitart ([place] 5/325) 1 tab Q4H PRN ORAL moderate pain 09/22/18 12:52 09/28/18 12:51 Albuterol/ Ipratropium (Albuterol/ Ipratropium) 3 ml Q4H PRN HHN Shortness of breath 09/22/18 12:48 09/26/18 12:47 Apixaban (Eliquis) 5 mg BID ORAL 09/22/18 18:00 10/19/18 08:59 09/24/18 17:52 Cefepime HCl 1 gm/ Dextrose 55 ml @ 110 mls/hr Q24H IVPB 09/25/18 01:00 10/02/18 00:59 09/25/18 01:02 Dextrose (Dextrose 50%) 25 ml Q30M PRN IV Hypoglycemia 09/22/18 13:00 10/17/18 06:59 Dextrose (Dextrose 50%) 50 ml Q30M PRN IV Hypoglycemia 09/22/18 13:00 10/17/18 06:59 Docusate Sodium (Colace) 100 mg TID ORAL 09/22/18 13:00 10/19/18 08:59 09/24/18 17:51 Folic Acid (Folate) 5 mg DAILY ORAL 09/23/18 09:00 10/18/18 09:59 09/24/18 08:59 Lorazepam (Ativan 2mg/ml 1ml) 2 mg Q4H PRN IV For Anxiety 09/22/18 13:00 09/29/18 12:59 09/24/18 10:40 Morphine Sulfate (Morphine Sulfate) 4 mg Q4H PRN IVP Severe pain(7-10) 09/22/18 12:58 09/29/18 12:57 09/23/18 22:13 Ondansetron HCl (Zofran) 4 mg Q6H PRN IVP Nausea & Vomiting 09/22/18 12:49 10/21/18 12:48 Pantoprazole (Protonix) 40 mg DAILY IV 09/23/18 09:00 10/23/18 08:59 09/24/18 08:59 Polyethylene Glycol (Miralax) 17 gm DAILYPRN PRN ORAL Constipation 09/22/18 12:50 10/21/18 12:49 Prednisone (predniSONE) 40 mg DAILY ORAL 09/23/18 09:00 10/20/18 08:59 09/24/18 08:58 Risperidone (RisperDAL) 1 mg BEDTIME ORAL 09/22/18 21:00 10/17/18 20:59 09/24/18 21:01 Temazepam (Restoril) 15 mg HSPRN PRN ORAL Insomnia 09/22/18 21:00 09/25/18 20:59 Thiamine HCl (Vitamin B1) 100 mg DAILY ORAL 09/23/18 09:00 10/20/18 08:59 09/24/18 08:58 Daniel Little MD Sep 25, 2018 06:51
--- NOTE | 2018-09-25 07:01 | NUR ---
HAND-OFF: Report given to CHARLETTE CORREA.
--- NOTE | 2018-09-25 07:15 | NUR ---
NURSE NOTES: Received pt from CHARLETTE Leal. Patient is orally intubated, ETT 7.5/22cm at lip line. Vent settings: AC 16/TV 600/Fio2 40%/PEEP 0, SPO2 100%, RR 16. G-tube running Glucerna 1.2@55ml/hr, no residual, placement checked by auscultation. HOB 35 degrees. No signs of distress at this time, patient is asleep but able to arouse. Controlled A-fib on equipment monitor phototypesetting, HR in 60's to 70's. Rhonchi and rales heard bilateral b/s. Left side is elevated by pillow support. RW 22G TKO. Asymptomatic and patent. Patient has bilateral soft wrist restraints, skin intact and warm to touch. López catheter running to gravity, phoebe colored urine. Bed locked, alarmed and in lowest position. Will continue plan of care. Addendum: 09/25/18 at 0741 by TONYA CORREA RN Patient does not have G-tube, patient has a NGT in left nare.
--- NOTE | 2018-09-25 08:17 | NUR ---
NURSE NOTES: Received orders to change PEEP pressure to 5 after AM ABG per Dr. Sierra. Read back given and verified.
[2018-09-25] MEDS: Thiamine 100mg tab ORAL SCH (08:36)
[2018-09-25] MEDS: Pantoprazole Inj IV SCH (08:36)
[2018-09-25] MEDS: Eliquis 2.5mg tablet ORAL SCH ×2 (08:36→17:07)
[2018-09-25] MEDS: Docusate 100mg/10ml Liq ORAL SCH ×3 (08:36→17:06)
--- NOTE | 2018-09-25 09:17 | Cardiac Electrophysiology PN ---
Assessment/Plan Assessment/Plan 1. 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 2. Chronic atrial fibrillation. Rate controlled off any antiarrhythmics. On Eliquis 5 mg bid. Needs to DC if needs tracheostomy or Bronchoscopy 3. Severe COPD. On Solu-Medrol. 4. Diastolic congestive heart failure. 5. Diabetes. 6. Left lung collapse. Intubated on the vent. DYLAN RN and Dr Sierra Subjective Subjective In ICU intubated on the vent. In atrial fib with controlled rate Objective Last 24 Hour Vital Signs Date Time Temp Pulse Resp B/P (MAP) Pulse Ox O2 Delivery O2 Flow Rate FiO2 09/25/18 09:07 69 18 40 09/25/18 09:00 62 16 101/42 (61) 100 09/25/18 08:00 40 09/25/18 08:00 Mechanical Ventilator 09/25/18 08:00 97.7 63 16 105/42 (63) 100 09/25/18 08:00 63 09/25/18 07:20 67 16 40 09/25/18 07:00 72 16 108/44 (65) 100 09/25/18 06:00 64 16 117/51 (73) 100 09/25/18 05:00 68 16 107/51 (69) 100 09/25/18 04:58 66 16 40 09/25/18 04:00 98.3 71 16 121/55 (77) 100 09/25/18 04:00 40 09/25/18 04:00 Mechanical Ventilator 09/25/18 03:11 61 16 40 09/25/18 03:09 61 09/25/18 03:00 64 16 107/45 (65) 100 09/25/18 02:00 67 16 107/48 (67) 100 09/25/18 01:17 62 16 40 09/25/18 01:00 61 16 123/49 (73) 100 09/25/18 00:00 Mechanical Ventilator 09/25/18 00:00 64 09/25/18 00:00 98.6 64 16 115/45 (68) 99 09/25/18 00:00 40 09/24/18 23:05 65 16 40 09/24/18 23:00 67 16 105/44 (64) 100 09/24/18 22:00 82 16 112/48 (69) 99 09/24/18 21:00 75 16 121/51 (74) 100 09/24/18 20:56 79 19 40 09/24/18 20:24 79 09/24/18 20:00 40 09/24/18 20:00 99.1 75 17 137/53 (81) 100 09/24/18 20:00 Mechanical Ventilator 09/24/18 19:00 65 16 135/60 (85) 100 09/24/18 18:50 64 16 40 09/24/18 18:00 70 16 127/100 (109) 100 09/24/18 17:00 66 17 141/48 (79) 100 09/24/18 16:31 68 16 40 09/24/18 16:00 40 09/24/18 16:00 Mechanical Ventilator 09/24/18 16:00 70 09/24/18 16:00 98.3 64 16 139/54 (82) 100 09/24/18 15:17 70 16 40 09/24/18 15:00 71 16 124/55 (78) 98 09/24/18 14:00 75 16 138/62 (87) 100 09/24/18 13:00 77 16 143/52 (82) 99 09/24/18 12:41 72 16 40 09/24/18 12:00 40 09/24/18 12:00 Mechanical Ventilator 09/24/18 12:00 99.3 76 16 138/62 (87) 100 09/24/18 12:00 77 09/24/18 11:24 80 16 40 09/24/18 11:00 79 16 133/62 (85) 99 09/24/18 10:00 83 17 133/62 (85) 99 09/24/18 09:50 40 Intake and Output 09/24/18 09/25/18 19:00 07:00 Intake Total 900 ml 795 ml Output Total 370 ml 440 ml Balance 530 ml 355 ml Free Water 120 ml IV Total 55 ml Tube Feeding 660 ml 660 ml Other 120 ml 80 ml Output Urine Total 370 ml 440 ml # Bowel Movements 2 Laboratory Tests Test 09/24/18 09:32 09/24/18 12:00 09/25/18 04:05 09/25/18 08:50 Arterial Blood pH 7.496 (7.350-7.450) 7.480 (7.350-7.450) Arterial Blood Partial Pressure CO2 30.7 mmHg (35.0-45.0) L 30.0 mmHg (35.0-45.0) L Arterial Blood Partial Pressure O2 50.4 mmHg (75.0-100.0) L 94.9 mmHg (75.0-100.0) Arterial Blood HCO3 23.2 mmol/L (22.0-26.0) 22.1 mmol/L (22.0-26.0) Arterial Blood Oxygen Saturation 85.1 % (95-100) *L 97.0 % (95-100) Arterial Blood Base Excess 0.4 (-2-2) -0.7 (-2-2) Ian Test Positive Positive Urine Color Brown Urine Appearance Very cloudy Urine pH 7 (4.5-8.0) Urine Specific [place] 1.005 (1.005-1.035) Urine Protein 2+ (NEGATIVE) H Urine Glucose (UA) Negative (NEGATIVE) Urine Ketones Negative (NEGATIVE) Urine Blood 2+ (NEGATIVE) H Urine Nitrite Positive (NEGATIVE) H Urine Bilirubin 1+ (NEGATIVE) H Urine Ictotest Negative (NEGATIVE) Urine Urobilinogen 12 MG/DL (0.0-1.0) H Urine Leukocyte Esterase 3+ (NEGATIVE) H Urine RBC 2-4 /HPF (0 - 2) H Urine WBC Tntc /HPF (0 - 2) H Urine Squamous Epithelial Cells None /LPF (NONE/OCC) Urine Bacteria Many /HPF (NONE) H White Blood Count 14.8 K/UL (4.8-10.8) H Red Blood Count 3.59 M/UL (4.20-5.40) L Hemoglobin 9.4 G/DL (12.0-16.0) L Hematocrit 29.3 % (37.0-47.0) L Mean Corpuscular Volume 82 FL (80-99) Mean Corpuscular Hemoglobin 26.2 PG (27.0-31.0) L Mean Corpuscular Hemoglobin Concent 32.1 G/DL (32.0-36.0) Red Cell Distribution Width 20.1 % (11.6-14.8) H Platelet Count 233 K/UL (150-450) Mean Platelet Volume 6.9 FL (6.5-10.1) Neutrophils (%) (Auto) 84.2 % (45.0-75.0) H Lymphocytes (%) (Auto) 8.7 % (20.0-45.0) L Monocytes (%) (Auto) 5.6 % (1.0-10.0) Eosinophils (%) (Auto) 1.2 % (0.0-3.0) Basophils (%) (Auto) 0.3 % (0.0-2.0) Sodium Level 137 MMOL/L (136-145) Potassium Level 4.0 MMOL/L (3.5-5.1) Chloride Level 105 MMOL/L (98-107) Carbon Dioxide Level 24 MMOL/L (21-32) Anion Gap 8 mmol/L (5-15) Blood Urea Nitrogen 14 mg/dL (7-18) Creatinine 0.5 MG/DL (0.55-1.30) L Estimat Glomerular Filtration Rate mL/min (>60) Glucose Level 99 MG/DL (74-106) Calcium Level 7.9 MG/DL (8.5-10.1) L Phosphorus Level 4.0 MG/DL (2.5-4.9) Magnesium Level 2.2 MG/DL (1.8-2.4) Total Bilirubin 0.5 MG/DL (0.2-1.0) Aspartate Amino Transf (AST/SGOT) 8 U/L (15-37) L Alanine Aminotransferase (ALT/SGPT) 7 U/L (12-78) L Alkaline Phosphatase 45 U/L (46-116) L Total Protein 5.6 G/DL (6.4-8.2) L Albumin 2.2 G/DL (3.4-5.0) L Globulin 3.4 g/dL Albumin/Globulin Ratio 0.6 (1.0-2.7) L Microbiology Date/Time Source Procedure Growth Status 09/23/18 11:07 Sputum Gram Stain - Final Resulted 09/23/18 11:07 Sputum Culture - Preliminary Staphylococcus Aureus Gram Negative Bacillus 1 Resulted Objective HEAD AND NECK: Mild JVD. LUNGS: Coarse rhonchi bilaterally. Decrease breath sounds on the left CARDIOVASCULAR: Irregular S1 and S2 with no gallop. ABDOMEN: Soft. EXTREMITIES: No pitting edema. Yohan Milian MD Sep 25, 2018 09:17
--- NOTE | 2018-09-25 09:25 | NUR ---
RADIOLOGY DEPT., CHEST X-RAY DONE.-P.DYE
--- NOTE | 2018-09-25 09:32 | Pulmonolgy Critical Care Note ---
Critical Care - Asmt/Plan Problems: (1) Respiratory failure, acute (2) Collapse of left lung Assessment & Plan: resolved (3) Atrial fibrillation with RVR (4) Hyponatremia (5) COPD (chronic obstructive pulmonary disease) (6) Anemia, chronic disease Respiratory: monitor respiratory rate, adjust FIO2, CXR Cardiac: continue to monitor HR/BP Renal: F/U I&O, keep IV fluid Infectious Disease: check cultures Gastrointestinal: continue feedings/current rate Endocrine: monitor blood sugar, check TSH Hematologic: monitor H/H Neurologic: PRN Morphine Affect: PRN ativan Prophylaxis: Protonix, Heparin Notes Reviewed: cardio Discussed with: nurses, consultants, 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 - Objective Last 24 Hour Vital Signs Date Time Temp Pulse Resp B/P (MAP) Pulse Ox O2 Delivery O2 Flow Rate FiO2 09/25/18 09:07 69 18 40 09/25/18 09:00 62 16 101/42 (61) 100 09/25/18 08:00 40 09/25/18 08:00 Mechanical Ventilator 09/25/18 08:00 97.7 63 16 105/42 (63) 100 09/25/18 08:00 63 09/25/18 07:20 67 16 40 09/25/18 07:00 72 16 108/44 (65) 100 09/25/18 06:00 64 16 117/51 (73) 100 09/25/18 05:00 68 16 107/51 (69) 100 09/25/18 04:58 66 16 40 09/25/18 04:00 98.3 71 16 121/55 (77) 100 09/25/18 04:00 40 09/25/18 04:00 Mechanical Ventilator 09/25/18 03:11 61 16 40 09/25/18 03:09 61 09/25/18 03:00 64 16 107/45 (65) 100 09/25/18 02:00 67 16 107/48 (67) 100 09/25/18 01:17 62 16 40 09/25/18 01:00 61 16 123/49 (73) 100 09/25/18 00:00 Mechanical Ventilator 09/25/18 00:00 64 09/25/18 00:00 98.6 64 16 115/45 (68) 99 09/25/18 00:00 40 09/24/18 23:05 65 16 40 09/24/18 23:00 67 16 105/44 (64) 100 09/24/18 22:00 82 16 112/48 (69) 99 09/24/18 21:00 75 16 121/51 (74) 100 09/24/18 20:56 79 19 40 09/24/18 20:24 79 09/24/18 20:00 40 09/24/18 20:00 99.1 75 17 137/53 (81) 100 09/24/18 20:00 Mechanical Ventilator 09/24/18 19:00 65 16 135/60 (85) 100 09/24/18 18:50 64 16 40 09/24/18 18:00 70 16 127/100 (109) 100 09/24/18 17:00 66 17 141/48 (79) 100 09/24/18 16:31 68 16 40 09/24/18 16:00 40 09/24/18 16:00 Mechanical Ventilator 09/24/18 16:00 70 09/24/18 16:00 98.3 64 16 139/54 (82) 100 09/24/18 15:17 70 16 40 09/24/18 15:00 71 16 124/55 (78) 98 09/24/18 14:00 75 16 138/62 (87) 100 09/24/18 13:00 77 16 143/52 (82) 99 09/24/18 12:41 72 16 40 09/24/18 12:00 40 09/24/18 12:00 Mechanical Ventilator 09/24/18 12:00 99.3 76 16 138/62 (87) 100 09/24/18 12:00 77 09/24/18 11:24 80 16 40 09/24/18 11:00 79 16 133/62 (85) 99 09/24/18 10:00 83 17 133/62 (85) 99 09/24/18 09:50 40 Status: awake Condition: critical HEENT: atraumatic Heart: HR/BP stable, HR/BP unstable Abdomen: non-tender, active bowel sounds Extremities: edema Micro: Microbiology Date/Time Source Procedure Growth Status 09/23/18 11:07 Sputum Gram Stain - Final Resulted 09/23/18 11:07 Sputum Culture - Preliminary Staphylococcus Aureus Gram Negative Bacillus 1 Resulted Critical Care - Subjective ROS Limited/Unobtainable: No Condition: critical EKG Rhythm: Sinus Rhythm FI02: 40 Vent Support Breath Rate: 16 Vent Support Mode: AC Vent Tidal Volume: 600 Sputum Amount: Scant PEEP: 0.0 PIP: 34 Tube Feeding Amount: 55 I&O: Intake and Output 09/24/18 09/25/18 19:00 07:00 Intake Total 900 ml 795 ml Output Total 370 ml 440 ml Balance 530 ml 355 ml Free Water 120 ml IV Total 55 ml Tube Feeding 660 ml 660 ml Other 120 ml 80 ml Output Urine Total 370 ml 440 ml # Bowel Movements 2 CXR: clear, ET in good position ET-Tube: 7.5 ET Position: 22 Labs: Laboratory Tests Test 09/24/18 09:32 09/24/18 12:00 09/25/18 04:05 09/25/18 08:50 Arterial Blood pH 7.496 (7.350-7.450) 7.480 (7.350-7.450) Arterial Blood Partial Pressure CO2 30.7 mmHg (35.0-45.0) L 30.0 mmHg (35.0-45.0) L Arterial Blood Partial Pressure O2 50.4 mmHg (75.0-100.0) L 94.9 mmHg (75.0-100.0) Arterial Blood HCO3 23.2 mmol/L (22.0-26.0) 22.1 mmol/L (22.0-26.0) Arterial Blood Oxygen Saturation 85.1 % (95-100) *L 97.0 % (95-100) Arterial Blood Base Excess 0.4 (-2-2) -0.7 (-2-2) Ian Test Positive Positive Urine Color Brown Urine Appearance Very cloudy Urine pH 7 (4.5-8.0) Urine Specific [place] 1.005 (1.005-1.035) Urine Protein 2+ (NEGATIVE) H Urine Glucose (UA) Negative (NEGATIVE) Urine Ketones Negative (NEGATIVE) Urine Blood 2+ (NEGATIVE) H Urine Nitrite Positive (NEGATIVE) H Urine Bilirubin 1+ (NEGATIVE) H Urine Ictotest Negative (NEGATIVE) Urine Urobilinogen 12 MG/DL (0.0-1.0) H Urine Leukocyte Esterase 3+ (NEGATIVE) H Urine RBC 2-4 /HPF (0 - 2) H Urine WBC Tntc /HPF (0 - 2) H Urine Squamous Epithelial Cells None /LPF (NONE/OCC) Urine Bacteria Many /HPF (NONE) H White Blood Count 14.8 K/UL (4.8-10.8) H Red Blood Count 3.59 M/UL (4.20-5.40) L Hemoglobin 9.4 G/DL (12.0-16.0) L Hematocrit 29.3 % (37.0-47.0) L Mean Corpuscular Volume 82 FL (80-99) Mean Corpuscular Hemoglobin 26.2 PG (27.0-31.0) L Mean Corpuscular Hemoglobin Concent 32.1 G/DL (32.0-36.0) Red Cell Distribution Width 20.1 % (11.6-14.8) H Platelet Count 233 K/UL (150-450) Mean Platelet Volume 6.9 FL (6.5-10.1) Neutrophils (%) (Auto) 84.2 % (45.0-75.0) H Lymphocytes (%) (Auto) 8.7 % (20.0-45.0) L Monocytes (%) (Auto) 5.6 % (1.0-10.0) Eosinophils (%) (Auto) 1.2 % (0.0-3.0) Basophils (%) (Auto) 0.3 % (0.0-2.0) Sodium Level 137 MMOL/L (136-145) Potassium Level 4.0 MMOL/L (3.5-5.1) Chloride Level 105 MMOL/L (98-107) Carbon Dioxide Level 24 MMOL/L (21-32) Anion Gap 8 mmol/L (5-15) Blood Urea Nitrogen 14 mg/dL (7-18) Creatinine 0.5 MG/DL (0.55-1.30) L Estimat Glomerular Filtration Rate mL/min (>60) Glucose Level 99 MG/DL (74-106) Calcium Level 7.9 MG/DL (8.5-10.1) L Phosphorus Level 4.0 MG/DL (2.5-4.9) Magnesium Level 2.2 MG/DL (1.8-2.4) Total Bilirubin 0.5 MG/DL (0.2-1.0) Aspartate Amino Transf (AST/SGOT) 8 U/L (15-37) L Alanine Aminotransferase (ALT/SGPT) 7 U/L (12-78) L Alkaline Phosphatase 45 U/L (46-116) L Total Protein 5.6 G/DL (6.4-8.2) L Albumin 2.2 G/DL (3.4-5.0) L Globulin 3.4 g/dL Albumin/Globulin Ratio 0.6 (1.0-2.7) L Mendel Sierra MD Sep 25, 2018 09:32
--- NOTE | 2018-09-25 10:04 | NUR ---
RESPIRATORY NOTE: pt placed on weaning trial, no SOB or discomfort noted at this time, CPAP +5 PS 10 will continue to monitor the pt's progress
--- NOTE | 2018-09-25 10:19 | NUR ---
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 LEFT LUNG COLLAPSE . COPD . UTI VS: BP 101/42,P 71, T 97.7, RR 30, SpO2 100 on VENT AC 16, TV 600, FiO2 40 WBC 14.8, RBC 3.59, Hgb 9.4, Hct 29.3 CR 0.5,URINE: BLOOD 2+, PROTEIN 2+, BACTERIA-MANY, NITRITE + CXR FINDINGS: Stable satisfactory positions of endotracheal and nasogastric tubes IS:LASIX 40mg IV CEFEPIME HCI 55ml IVPB PREDNISONE 40mg PROTONIX 40 MG IV ELIQUIS 5mg ICU STATUS
--- NOTE | 2018-09-25 10:35 | NUR ---
NURSE NOTES: Patient became tachypneic RR 34 and c/o of SOB. Could not tolerate weaning on CPAP/PS8 for more than 25 mins. Placed back on A/C mode.
[2018-09-25] MEDS: Tylenol #3 tab (300mg/30mg) ORAL PRN (10:42)
--- NOTE | 2018-09-25 10:50 | NUR ---
NURSE NOTES: Pt c/o of generalized pain FLACC 8/10. Tylenol 3 given as per ordered. Will reassess in 30 minutes.
--- NOTE | 2018-09-25 10:59 | Nephrology Progress Note ---
Assessment/Plan Problem List: (1) Respiratory failure, acute (2) Hyponatremia (3) Seizure disorder (4) Acute diastolic CHF (congestive heart failure) (5) COPD (chronic obstructive pulmonary disease) (6) Pacemaker Assessment HypoNatremia ? Etiology: depletional / Diuretics / SIADH ... bronchoscopy for left lung collapse Acute respiratory failure on BIPAP- COPD Encephalopathy due to high CO2 Pacemaker UTI Low MCV Anemia Hypoalbuminemia EjFx 55% last admission h/o Atfib Plan Plan; pulm intervention for left lung collapse- now expanded intubated Dc Diamox for now López 3% saline as needed PRN lasix IV iron monitor lytes Anemia clinton solumedrol to po prednisone per orders Subjective ROS Limited/Unobtainable: Yes Objective Objective Last 24 Hour Vital Signs Date Time Temp Pulse Resp B/P (MAP) Pulse Ox O2 Delivery O2 Flow Rate FiO2 09/25/18 10:11 40 09/25/18 10:00 71 30 134/66 (88) 100 09/25/18 09:07 69 18 40 09/25/18 09:00 62 16 101/42 (61) 100 09/25/18 08:00 40 09/25/18 08:00 Mechanical Ventilator 09/25/18 08:00 97.7 63 16 105/42 (63) 100 09/25/18 08:00 63 09/25/18 07:20 67 16 40 09/25/18 07:00 72 16 108/44 (65) 100 09/25/18 06:00 64 16 117/51 (73) 100 09/25/18 05:00 68 16 107/51 (69) 100 09/25/18 04:58 66 16 40 09/25/18 04:00 98.3 71 16 121/55 (77) 100 09/25/18 04:00 40 09/25/18 04:00 Mechanical Ventilator 09/25/18 03:11 61 16 40 09/25/18 03:09 61 09/25/18 03:00 64 16 107/45 (65) 100 09/25/18 02:00 67 16 107/48 (67) 100 09/25/18 01:17 62 16 40 09/25/18 01:00 61 16 123/49 (73) 100 09/25/18 00:00 Mechanical Ventilator 09/25/18 00:00 64 09/25/18 00:00 98.6 64 16 115/45 (68) 99 09/25/18 00:00 40 09/24/18 23:05 65 16 40 09/24/18 23:00 67 16 105/44 (64) 100 09/24/18 22:00 82 16 112/48 (69) 99 09/24/18 21:00 75 16 121/51 (74) 100 09/24/18 20:56 79 19 40 09/24/18 20:24 79 09/24/18 20:00 40 09/24/18 20:00 99.1 75 17 137/53 (81) 100 09/24/18 20:00 Mechanical Ventilator 09/24/18 19:00 65 16 135/60 (85) 100 09/24/18 18:50 64 16 40 09/24/18 18:00 70 16 127/100 (109) 100 09/24/18 17:00 66 17 141/48 (79) 100 09/24/18 16:31 68 16 40 09/24/18 16:00 40 09/24/18 16:00 Mechanical Ventilator 09/24/18 16:00 70 09/24/18 16:00 98.3 64 16 139/54 (82) 100 09/24/18 15:17 70 16 40 09/24/18 15:00 71 16 124/55 (78) 98 09/24/18 14:00 75 16 138/62 (87) 100 09/24/18 13:00 77 16 143/52 (82) 99 09/24/18 12:41 72 16 40 09/24/18 12:00 40 09/24/18 12:00 Mechanical Ventilator 09/24/18 12:00 99.3 76 16 138/62 (87) 100 09/24/18 12:00 77 09/24/18 11:24 80 16 40 09/24/18 11:00 79 16 133/62 (85) 99 Intake and Output 09/24/18 09/25/18 19:00 07:00 Intake Total 900 ml 795 ml Output Total 370 ml 440 ml Balance 530 ml 355 ml Free Water 120 ml IV Total 55 ml Tube Feeding 660 ml 660 ml Other 120 ml 80 ml Output Urine Total 370 ml 440 ml # Bowel Movements 2 Laboratory Tests 09/24/18 12:00: Urine Color Brown, Urine Appearance Very cloudy, Urine pH 7, Urine Specific [place] 1.005, Urine Protein 2+H, Urine Glucose (UA) Negative, Urine Ketones Negative, Urine Blood 2+H, Urine Nitrite PositiveH, Urine Bilirubin 1+H, Urine Ictotest Negative, Urine Urobilinogen 12H, Urine Leukocyte Esterase 3+H, Urine RBC 2-4H, Urine WBC TntcH, Urine Squamous Epithelial Cells None, Urine Bacteria ManyH 09/25/18 04:05: White Blood Count 14.8H, Red Blood Count 3.59L, Hemoglobin 9.4L, Hematocrit 29.3L, Mean Corpuscular Volume 82, Mean Corpuscular Hemoglobin 26.2L, Mean Corpuscular Hemoglobin Concent 32.1, Red Cell Distribution Width 20.1H, Platelet Count 233, Mean Platelet Volume 6.9, Neutrophils (%) (Auto) 84.2H, Lymphocytes (%) (Auto) 8.7L, Monocytes (%) (Auto) 5.6, Eosinophils (%) (Auto) 1.2, Basophils (%) (Auto) 0.3, Sodium Level 137, Potassium Level 4.0, Chloride Level 105, Carbon Dioxide Level 24, Anion Gap 8, Blood Urea Nitrogen 14, Creatinine 0.5L, Estimat Glomerular Filtration Rate , Glucose Level 99, Calcium Level 7.9L, Phosphorus Level 4.0, Magnesium Level 2.2, Total Bilirubin 0.5, Aspartate Amino Transf (AST/SGOT) 8L, Alanine Aminotransferase (ALT/SGPT) 7L, Alkaline Phosphatase 45L, Total Protein 5.6L, Albumin 2.2L, Globulin 3.4, Albumin/Globulin Ratio 0.6L 09/25/18 08:50: Arterial Blood pH 7.480H, Arterial Blood Partial Pressure CO2 30.0L, Arterial Blood Partial Pressure O2 94.9, Arterial Blood HCO3 22.1, Arterial Blood Oxygen Saturation 97.0, Arterial Blood Base Excess -0.7, Ian Test Positive Height (Feet): 5 Weight (Pounds): 175 EENT: other - vented Cardiovascular: normal rate Respiratory/Chest: decreased breath sounds Abdomen: distended Objective no change Danilo Huber MD Sep 25, 2018 10:59
--- NOTE | 2018-09-25 12:10 | Diagnostic Imaging Report ---
Indication: Dyspnea Comparison: 09/24/2018 A single view chest radiograph was obtained. Findings: Interstitial opacities likely mild edema again noted. Cardiomediastinal is stable. There may be a small left pleural effusion. Tubes and lines are stable. IMPRESSION: No change from the prior day
--- NOTE | 2018-09-25 12:15 | NUR ---
NURSE NOTES: Turned and repositioned. Kept dry and clean. Oral care given. Denies discomfort or at this time.
[2018-09-25] MEDS: Albuterol/Ipratropium 3ml neb HHN SCH ×2 (13:21→19:29)
[2018-09-25] MEDS: LORazepam Inj 2mg/ml 1ml IV PRN (13:30)
[2018-09-25] MEDS ORDERED: Vancomycin 1.25gm Premix IVPB SCH (14:00)
--- NOTE | 2018-09-25 14:10 | NUR ---
NURSE NOTES: López catheter draining 200ml/hr after Lasix, VSS. Kept dry and clean. sxn provided.
--- NOTE | 2018-09-25 14:46 | Infectious Diseases Prog Note ---
Assessment/Plan Assessment/Plan Abx: None Assessment: Low grade fever x1 Leukocytosis, increased (on high dose steroids); now improving -09/16 u/a 5-10, nit +, leuk +3 Bcx neg Probable PNA -sp cx S. aureus, GNB#1 Probable UTI -09/24 u/a wbc tnct nit +, leuk +3; ucx p Acute on chronic respiratory failure s/p intubation 09/22 CHF and COPD exacerbation -09/24 CXR: There is persistent opacity at the left lung base. -09/21 CT chest: Completely atelectatic left lung. This is likely due to endobronchial occlusion by debris. However, a small pulmonary hilar mass may also be present. This finding was discussed by phone with Dr. Sierra previously. Small left pleural effusion. Trace right pleural effusion. Posterior and basilar atelectatic changes of the right lung. Single enlarged aortopulmonary window lymph node. This could be neoplastic or reactive. This is increased in size since prior study 03/13/2018. Right lung groundglass opacity, nonspecific but likely on the basis of mild pulmonary edema. Mild cardiomegaly. Pericardial effusion Hypokalemia Hx of recurrent CONS bacteremia -07/28/18 Bcx 07/06 CONS; 07/29 Bcx Neg; 08/23 BCx neg -2d echo: no obvious vegetation -05/19/18 Bcx / S. hominis sp hominis; 05/21 Bc xNeg 2d eCho: no vegetations. Focal aortic valve sclerosis with reduced cusp excursion. Thickened mitral valve leaflets with reduced excursion. 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, s/p Rx SP VDRF, 04/10 Sp extubated Legionella Ur Ag: Neg, Legionella IgM + / IgG - Scx: No sig growth Flu screen negative Atrial flutter dCHF COPD CAD s/p stents Hypertension Seizure disorder Schizophrenia Depression History of intraventricular pacemaker implantation GERD CVA/TIA b/l hip replacement hx of L DVT history of alcohol abuse hx of recurrent admissions hx of high grade CONS bacteremia SNF resident Plan: -Start empiric Cefepime #2 and add IV Vancomycin #1 for probable PNA and UTI pending cultures -f/u Bcx x2, ucx -f/u cx -Monitor CBC/CMP, temperatures -Cdiff if diarrhea -ETT/ICU care -aspiration precautions Thank you for this consultation. Will continue to follow along with you. Discussed with RN. Subjective Allergies: Coded Allergies: PIPERACILLIN (Unverified Allergy, Unknown, 05/21/18) tolerates cephalosporins TAZOBACTAM (Unverified Allergy, Unknown, 03/10/18) Subjective afebrile >48hrs leukocytosis improving Objective Vital Signs Last 24 Hour Vital Signs Date Time Temp Pulse Resp B/P (MAP) Pulse Ox O2 Delivery O2 Flow Rate FiO2 09/25/18 13:23 70 18 40 09/25/18 13:22 69 18 100 Mechanical Ventilator 40 09/25/18 13:00 65 16 100/40 (60) 100 09/25/18 12:00 68 09/25/18 12:00 98.1 68 16 108/43 (64) 100 09/25/18 12:00 Mechanical Ventilator 09/25/18 11:12 97.7 09/25/18 11:06 72 18 40 09/25/18 11:03 100 09/25/18 11:00 63 16 101/40 (60) 100 09/25/18 10:11 40 09/25/18 10:00 71 30 134/66 (88) 100 09/25/18 09:07 69 18 40 09/25/18 09:00 62 16 101/42 (61) 100 09/25/18 08:00 40 09/25/18 08:00 Mechanical Ventilator 09/25/18 08:00 97.7 63 16 105/42 (63) 100 09/25/18 08:00 63 09/25/18 07:20 67 16 40 09/25/18 07:00 72 16 108/44 (65) 100 09/25/18 06:00 64 16 117/51 (73) 100 09/25/18 05:00 68 16 107/51 (69) 100 09/25/18 04:58 66 16 40 09/25/18 04:00 98.3 71 16 121/55 (77) 100 09/25/18 04:00 40 09/25/18 04:00 Mechanical Ventilator 09/25/18 03:11 61 16 40 09/25/18 03:09 61 09/25/18 03:00 64 16 107/45 (65) 100 09/25/18 02:00 67 16 107/48 (67) 100 09/25/18 01:17 62 16 40 09/25/18 01:00 61 16 123/49 (73) 100 09/25/18 00:00 Mechanical Ventilator 09/25/18 00:00 64 09/25/18 00:00 98.6 64 16 115/45 (68) 99 09/25/18 00:00 40 09/24/18 23:05 65 16 40 09/24/18 23:00 67 16 105/44 (64) 100 09/24/18 22:00 82 16 112/48 (69) 99 09/24/18 21:00 75 16 121/51 (74) 100 09/24/18 20:56 79 19 40 09/24/18 20:24 79 09/24/18 20:00 40 09/24/18 20:00 99.1 75 17 137/53 (81) 100 09/24/18 20:00 Mechanical Ventilator 09/24/18 19:00 65 16 135/60 (85) 100 09/24/18 18:50 64 16 40 09/24/18 18:00 70 16 127/100 (109) 100 09/24/18 17:00 66 17 141/48 (79) 100 09/24/18 16:31 68 16 40 09/24/18 16:00 40 09/24/18 16:00 Mechanical Ventilator 09/24/18 16:00 70 09/24/18 16:00 98.3 64 16 139/54 (82) 100 09/24/18 15:17 70 16 40 09/24/18 15:00 71 16 124/55 (78) 98 Height (Feet): 5 Weight (Pounds): 175 Objective GENERAL: Shows to be elderly female, in no respiratory distress. NECK: Supple. No jugular venous distention. LUNGS: Inspiratory and expiratory wheezes. CARDIAC: Irregularly irregular. No heaves, thrills, or gallops noted. ABDOMEN: Soft, nontender. Positive bowel sounds. EXTREMITIES: There is no clubbing, cyanosis, or edema. NEUROLOGICAL: She is awake, alert, responsive. Microbiology Date/Time Source Procedure Growth Status 09/23/18 11:07 Sputum Gram Stain - Final Resulted 09/23/18 11:07 Sputum Culture - Preliminary Staphylococcus Aureus Gram Negative Bacillus 1 Resulted Laboratory Tests Test 09/25/18 04:05 09/25/18 08:50 White Blood Count 14.8 K/UL (4.8-10.8) H Red Blood Count 3.59 M/UL (4.20-5.40) L Hemoglobin 9.4 G/DL (12.0-16.0) L Hematocrit 29.3 % (37.0-47.0) L Mean Corpuscular Volume 82 FL (80-99) Mean Corpuscular Hemoglobin 26.2 PG (27.0-31.0) L Mean Corpuscular Hemoglobin Concent 32.1 G/DL (32.0-36.0) Red Cell Distribution Width 20.1 % (11.6-14.8) H Platelet Count 233 K/UL (150-450) Mean Platelet Volume 6.9 FL (6.5-10.1) Neutrophils (%) (Auto) 84.2 % (45.0-75.0) H Lymphocytes (%) (Auto) 8.7 % (20.0-45.0) L Monocytes (%) (Auto) 5.6 % (1.0-10.0) Eosinophils (%) (Auto) 1.2 % (0.0-3.0) Basophils (%) (Auto) 0.3 % (0.0-2.0) Sodium Level 137 MMOL/L (136-145) Potassium Level 4.0 MMOL/L (3.5-5.1) Chloride Level 105 MMOL/L (98-107) Carbon Dioxide Level 24 MMOL/L (21-32) Anion Gap 8 mmol/L (5-15) Blood Urea Nitrogen 14 mg/dL (7-18) Creatinine 0.5 MG/DL (0.55-1.30) L Estimat Glomerular Filtration Rate mL/min (>60) Glucose Level 99 MG/DL (74-106) Calcium Level 7.9 MG/DL (8.5-10.1) L Phosphorus Level 4.0 MG/DL (2.5-4.9) Magnesium Level 2.2 MG/DL (1.8-2.4) Total Bilirubin 0.5 MG/DL (0.2-1.0) Aspartate Amino Transf (AST/SGOT) 8 U/L (15-37) L Alanine Aminotransferase (ALT/SGPT) 7 U/L (12-78) L Alkaline Phosphatase 45 U/L (46-116) L Total Protein 5.6 G/DL (6.4-8.2) L Albumin 2.2 G/DL (3.4-5.0) L Globulin 3.4 g/dL Albumin/Globulin Ratio 0.6 (1.0-2.7) L Arterial Blood pH 7.480 (7.350-7.450) Arterial Blood Partial Pressure CO2 30.0 mmHg (35.0-45.0) L Arterial Blood Partial Pressure O2 94.9 mmHg (75.0-100.0) Arterial Blood HCO3 22.1 mmol/L (22.0-26.0) Arterial Blood Oxygen Saturation 97.0 % (95-100) Arterial Blood Base Excess -0.7 (-2-2) Ian Test Positive Current Medications Medications (Trade) Dose Ordered Sig/Ibrahima Route PRN Reason Start Time Stop Time Status Last Admin Dose Admin Acetaminophen (Tylenol) 650 mg Q4H PRN ORAL Mild Pain (Pain Scale 1-3) 09/22/18 12:47 10/21/18 12:46 09/22/18 20:57 Acetaminophen/ Codeine Phosphate (Tylenol #3) 1 tab Q4H PRN ORAL ModeratePain 09/22/18 13:00 09/28/18 12:51 09/25/18 10:42 Acetaminophen/ Hydrocodone Bitart ([place] 5/325) 1 tab Q4H PRN ORAL moderate pain 09/22/18 12:52 09/28/18 12:51 Albuterol/ Ipratropium (Albuterol/ Ipratropium) 3 ml Q6HRT HHN 09/25/18 13:00 09/30/18 12:59 09/25/18 13:21 Apixaban (Eliquis) 5 mg BID ORAL 09/22/18 18:00 10/19/18 08:59 09/25/18 08:36 Cefepime HCl 1 gm/ Dextrose 55 ml @ 110 mls/hr Q24H IVPB 09/25/18 01:00 10/02/18 00:59 09/25/18 01:02 Dextrose (Dextrose 50%) 25 ml Q30M PRN IV Hypoglycemia 09/22/18 13:00 10/17/18 06:59 Dextrose (Dextrose 50%) 50 ml Q30M PRN IV Hypoglycemia 09/22/18 13:00 10/17/18 06:59 Docusate Sodium (Colace) 100 mg TID ORAL 09/22/18 13:00 10/19/18 08:59 09/25/18 13:08 Folic Acid (Folate) 5 mg DAILY ORAL 09/23/18 09:00 10/18/18 09:59 09/25/18 08:37 Furosemide (Lasix) 40 mg DAILY IV 09/26/18 09:00 10/26/18 08:59 Lorazepam (Ativan 2mg/ml 1ml) 2 mg Q4H PRN IV For Anxiety 09/22/18 13:00 09/29/18 12:59 09/25/18 13:30 Morphine Sulfate (Morphine Sulfate) 4 mg Q4H PRN IVP Severe pain(7-10) 09/22/18 12:58 09/29/18 12:57 09/23/18 22:13 Ondansetron HCl (Zofran) 4 mg Q6H PRN IVP Nausea & Vomiting 09/22/18 12:49 10/21/18 12:48 Pantoprazole (Protonix) 40 mg DAILY IV 09/23/18 09:00 10/23/18 08:59 09/25/18 08:36 Polyethylene Glycol (Miralax) 17 gm DAILYPRN PRN ORAL Constipation 09/22/18 12:50 10/21/18 12:49 Prednisone (predniSONE) 40 mg DAILY ORAL 09/23/18 09:00 10/20/18 08:59 09/25/18 08:36 Risperidone (RisperDAL) 1 mg BEDTIME ORAL 09/22/18 21:00 10/17/18 20:59 09/24/18 21:01 Temazepam (Restoril) 15 mg HSPRN PRN ORAL Insomnia 09/22/18 21:00 09/25/18 20:59 Thiamine HCl (Vitamin B1) 100 mg DAILY ORAL 09/23/18 09:00 10/20/18 08:59 09/25/18 08:36 Vancomycin HCl (Vanco rx to dose) 1 ea DAILY PRN MISC Per rx protocol 09/25/18 13:15 10/25/18 13:14 Vancomycin HCl 750 mg/Sodium Chloride 275 ml @ 183.333 mls/hr Q24H IVPB 09/26/18 14:00 10/01/18 13:59 Vancomycin HCl/ Dextrose 275 ml @ 183.333 mls/hr ONCE IVPB 09/25/18 14:00 09/25/18 16:00 09/25/18 14:07 Danica Nayak M.D. Sep 25, 2018 14:46
--- NOTE | 2018-09-25 15:56 | Internal Med Progress Note ---
Subjective Physician Name Yonathan Mendoza Attending Physician Yonathan Mendoza MD Current Medications Medications (Trade) Dose Ordered Sig/Ibrahima Route PRN Reason Start Time Stop Time Status Last Admin Dose Admin Acetaminophen (Tylenol) 650 mg Q4H PRN ORAL Mild Pain (Pain Scale 1-3) 09/22/18 12:47 10/21/18 12:46 09/22/18 20:57 Acetaminophen/ Codeine Phosphate (Tylenol #3) 1 tab Q4H PRN ORAL ModeratePain 09/22/18 13:00 09/28/18 12:51 09/25/18 10:42 Acetaminophen/ Hydrocodone Bitart ([place] 5/325) 1 tab Q4H PRN ORAL moderate pain 09/22/18 12:52 09/28/18 12:51 Albuterol/ Ipratropium (Albuterol/ Ipratropium) 3 ml Q6HRT HHN 09/25/18 13:00 09/30/18 12:59 09/25/18 13:21 Apixaban (Eliquis) 5 mg BID ORAL 09/22/18 18:00 10/19/18 08:59 09/25/18 08:36 Cefepime HCl 1 gm/ Dextrose 55 ml @ 110 mls/hr Q24H IVPB 09/25/18 01:00 10/02/18 00:59 09/25/18 01:02 Dextrose (Dextrose 50%) 25 ml Q30M PRN IV Hypoglycemia 09/22/18 13:00 10/17/18 06:59 Dextrose (Dextrose 50%) 50 ml Q30M PRN IV Hypoglycemia 09/22/18 13:00 10/17/18 06:59 Docusate Sodium (Colace) 100 mg TID ORAL 09/22/18 13:00 10/19/18 08:59 09/25/18 13:08 Folic Acid (Folate) 5 mg DAILY ORAL 09/23/18 09:00 10/18/18 09:59 09/25/18 08:37 Furosemide (Lasix) 40 mg DAILY IV 09/26/18 09:00 10/26/18 08:59 Lorazepam (Ativan 2mg/ml 1ml) 2 mg Q4H PRN IV For Anxiety 09/22/18 13:00 09/29/18 12:59 09/25/18 13:30 Morphine Sulfate (Morphine Sulfate) 4 mg Q4H PRN IVP Severe pain(7-10) 09/22/18 12:58 09/29/18 12:57 09/23/18 22:13 Ondansetron HCl (Zofran) 4 mg Q6H PRN IVP Nausea & Vomiting 09/22/18 12:49 10/21/18 12:48 Pantoprazole (Protonix) 40 mg DAILY IV 09/23/18 09:00 10/23/18 08:59 09/25/18 08:36 Polyethylene Glycol (Miralax) 17 gm DAILYPRN PRN ORAL Constipation 09/22/18 12:50 10/21/18 12:49 Prednisone (predniSONE) 40 mg DAILY ORAL 09/23/18 09:00 10/20/18 08:59 09/25/18 08:36 Risperidone (RisperDAL) 1 mg BEDTIME ORAL 09/22/18 21:00 10/17/18 20:59 09/24/18 21:01 Temazepam (Restoril) 15 mg HSPRN PRN ORAL Insomnia 09/22/18 21:00 09/25/18 20:59 Thiamine HCl (Vitamin B1) 100 mg DAILY ORAL 09/23/18 09:00 10/20/18 08:59 09/25/18 08:36 Vancomycin HCl (Vanco rx to dose) 1 ea DAILY PRN MISC Per rx protocol 09/25/18 13:15 10/25/18 13:14 Vancomycin HCl 750 mg/Sodium Chloride 275 ml @ 183.333 mls/hr Q24H IVPB 09/26/18 14:00 10/01/18 13:59 Vancomycin HCl/ Dextrose 275 ml @ 183.333 mls/hr ONCE IVPB 09/25/18 14:00 09/25/18 16:00 09/25/18 14:07 Allergies: Coded Allergies: PIPERACILLIN (Unverified Allergy, Unknown, 05/21/18) tolerates cephalosporins TAZOBACTAM (Unverified Allergy, Unknown, 03/10/18) Subjective awake, responsive , in ICU, intubated on Vent, WBC: 14.8 improving Objective Last Vital Signs Date Time Temp Pulse Resp B/P (MAP) Pulse Ox O2 Delivery O2 Flow Rate FiO2 09/25/18 15:10 63 16 40 09/25/18 13:22 100 Mechanical Ventilator 09/25/18 13:00 100/40 (60) 09/25/18 12:00 98.1 09/23/18 04:00 Laboratory Tests Test 09/25/18 04:05 09/25/18 08:50 White Blood Count 14.8 K/UL (4.8-10.8) H Red Blood Count 3.59 M/UL (4.20-5.40) L Hemoglobin 9.4 G/DL (12.0-16.0) L Hematocrit 29.3 % (37.0-47.0) L Mean Corpuscular Volume 82 FL (80-99) Mean Corpuscular Hemoglobin 26.2 PG (27.0-31.0) L Mean Corpuscular Hemoglobin Concent 32.1 G/DL (32.0-36.0) Red Cell Distribution Width 20.1 % (11.6-14.8) H Platelet Count 233 K/UL (150-450) Mean Platelet Volume 6.9 FL (6.5-10.1) Neutrophils (%) (Auto) 84.2 % (45.0-75.0) H Lymphocytes (%) (Auto) 8.7 % (20.0-45.0) L Monocytes (%) (Auto) 5.6 % (1.0-10.0) Eosinophils (%) (Auto) 1.2 % (0.0-3.0) Basophils (%) (Auto) 0.3 % (0.0-2.0) Sodium Level 137 MMOL/L (136-145) Potassium Level 4.0 MMOL/L (3.5-5.1) Chloride Level 105 MMOL/L (98-107) Carbon Dioxide Level 24 MMOL/L (21-32) Anion Gap 8 mmol/L (5-15) Blood Urea Nitrogen 14 mg/dL (7-18) Creatinine 0.5 MG/DL (0.55-1.30) L Estimat Glomerular Filtration Rate mL/min (>60) Glucose Level 99 MG/DL (74-106) Calcium Level 7.9 MG/DL (8.5-10.1) L Phosphorus Level 4.0 MG/DL (2.5-4.9) Magnesium Level 2.2 MG/DL (1.8-2.4) Total Bilirubin 0.5 MG/DL (0.2-1.0) Aspartate Amino Transf (AST/SGOT) 8 U/L (15-37) L Alanine Aminotransferase (ALT/SGPT) 7 U/L (12-78) L Alkaline Phosphatase 45 U/L (46-116) L Total Protein 5.6 G/DL (6.4-8.2) L Albumin 2.2 G/DL (3.4-5.0) L Globulin 3.4 g/dL Albumin/Globulin Ratio 0.6 (1.0-2.7) L Arterial Blood pH 7.480 (7.350-7.450) Arterial Blood Partial Pressure CO2 30.0 mmHg (35.0-45.0) L Arterial Blood Partial Pressure O2 94.9 mmHg (75.0-100.0) Arterial Blood HCO3 22.1 mmol/L (22.0-26.0) Arterial Blood Oxygen Saturation 97.0 % (95-100) Arterial Blood Base Excess -0.7 (-2-2) Ian Test Positive Microbiology Date/Time Source Procedure Growth Status 09/23/18 11:07 Sputum Gram Stain - Final Resulted 09/23/18 11:07 Sputum Culture - Preliminary Staphylococcus Aureus Gram Negative Bacillus 1 Resulted Intake and Output 09/24/18 09/25/18 19:00 07:00 Intake Total 900 ml 795 ml Output Total 370 ml 440 ml Balance 530 ml 355 ml Free Water 120 ml IV Total 55 ml Tube Feeding 660 ml 660 ml Other 120 ml 80 ml Output Urine Total 370 ml 440 ml # Bowel Movements 2 Objective General: No acute distress, awake and alert HEENT: NCAT, sclera anicteric, PERRL, EOMI, ET tube, HG tube Neck: Supple, no significant jugular venous distention, Lungs: decrease air in bases, mechanical breath sound, no Wheeze or Rales. Heart: Regular rate and rhythm, normal S1/S2, no murmur. Abdomen: soft, nontender, nondistended. Normoactive bowel sounds, Morbid obesity. : López cath. Extremities: No Cyanosis , clubbing + 2 RUE edema. Neuro: A&O x 3, Able to move all extremities Skin: warm, no rashes Assessment/Plan Assessment/Plan ASSESSMENT: This is a 77-year-old white female with: 1. Pneumonia. 2. Acute Hypoxemic respiratory failure. 3. Acute on chronic congestive heart failure. 4. Atrial flutter. 5. Hyponatremia. 6. Chronic obstructive pulmonary disease. 7. Coronary artery disease. 8. Hypertension. 9. Seizure disorder. 10. Paranoid schizophrenia. 11. Intraventricular pacemaker 12. left lung opacification-collapse per CT TREATMENT: 1. Shortness of breath/congestive heart failure. Continue mech vent per pulmonary Dr Sierra. Pulmonary consultation Lasix IV We will follow recommendation of Dr. [facility]. 2. Atrial flutter. Continue Eliquis as above. 3. Hyponatremia. The patient is currently receiving intravenous fluids. 4. Chronic obstructive pulmonary disease. Continue DuoNeb nebulized as above. The patient was initially placed on BiPAP in the emergency room. A Pulmonary consultation has been obtained with Dr. Mendel Sierra. 5. Hypertension. Continue Lasix as above. 6. Seizure disorder. The patient is currently off antiseizure medication. 7. Paranoid schizophrenia. Continue Risperdal as above. Abx: Cefepime and Flagyl Monitor labs and cultures. Yonathan Mendoza MD Sep 25, 2018 15:56
--- NOTE | 2018-09-25 16:01 | NUR ---
NURSE NOTES: Patient's condition remains the same. Sedated, unable to follow commands but arousable to voice and touch. Afebrile.
--- NOTE | 2018-09-25 16:53 | Cardiology Progress Note ---
Assessment/Plan Assessment/Plan 1. Bronchospasm. 2. Possible left-sided infiltrate or pneumonia. 3. Diastolic heart failure history. 4. Permanent atrial fibrillation. 5. lung collapse 6. hs of pacer in icu thomas vent f lung col,lapswe resolved vr seem fine bp is fien at time tiem pulm toilette abx on eliquis failed to wean Subjective ROS Limited/Unobtainable: Yes Subjective intubated on the vent Objective Last 24 Hour Vital Signs Date Time Temp Pulse Resp B/P (MAP) Pulse Ox O2 Delivery O2 Flow Rate FiO2 09/25/18 16:00 66 09/25/18 16:00 97.7 64 16 126/52 (76) 100 09/25/18 16:00 40 09/25/18 16:00 Mechanical Ventilator 09/25/18 15:10 63 16 40 09/25/18 15:00 63 16 108/48 (68) 97 09/25/18 14:00 64 16 104/44 (64) 100 09/25/18 13:23 70 18 40 09/25/18 13:22 69 18 100 Mechanical Ventilator 40 09/25/18 13:00 65 16 100/40 (60) 100 09/25/18 12:00 68 09/25/18 12:00 98.1 68 16 108/43 (64) 100 09/25/18 12:00 Mechanical Ventilator 09/25/18 11:12 97.7 09/25/18 11:06 72 18 40 09/25/18 11:03 100 09/25/18 11:00 63 16 101/40 (60) 100 09/25/18 10:30 40 09/25/18 10:11 40 09/25/18 10:00 71 30 134/66 (88) 100 09/25/18 09:07 69 18 40 09/25/18 09:00 62 16 101/42 (61) 100 09/25/18 08:00 40 09/25/18 08:00 Mechanical Ventilator 09/25/18 08:00 97.7 63 16 105/42 (63) 100 09/25/18 08:00 63 09/25/18 07:20 67 16 40 09/25/18 07:00 72 16 108/44 (65) 100 09/25/18 06:00 64 16 117/51 (73) 100 09/25/18 05:00 68 16 107/51 (69) 100 09/25/18 04:58 66 16 40 09/25/18 04:00 98.3 71 16 121/55 (77) 100 09/25/18 04:00 40 09/25/18 04:00 Mechanical Ventilator 09/25/18 03:11 61 16 40 09/25/18 03:09 61 09/25/18 03:00 64 16 107/45 (65) 100 09/25/18 02:00 67 16 107/48 (67) 100 09/25/18 01:17 62 16 40 09/25/18 01:00 61 16 123/49 (73) 100 09/25/18 00:00 Mechanical Ventilator 09/25/18 00:00 64 09/25/18 00:00 98.6 64 16 115/45 (68) 99 09/25/18 00:00 40 09/24/18 23:05 65 16 40 09/24/18 23:00 67 16 105/44 (64) 100 09/24/18 22:00 82 16 112/48 (69) 99 09/24/18 21:00 75 16 121/51 (74) 100 09/24/18 20:56 79 19 40 09/24/18 20:24 79 09/24/18 20:00 40 09/24/18 20:00 99.1 75 17 137/53 (81) 100 09/24/18 20:00 Mechanical Ventilator 09/24/18 19:00 65 16 135/60 (85) 100 09/24/18 18:50 64 16 40 09/24/18 18:00 70 16 127/100 (109) 100 09/24/18 17:00 66 17 141/48 (79) 100 General Appearance: no apparent distress, alert Neck: supple Cardiovascular: normal rate Respiratory/Chest: lungs clear, normal breath sounds Abdomen: normal bowel sounds, non tender, soft Extremities: no swelling Intake and Output 09/24/18 09/25/18 19:00 07:00 Intake Total 900 ml 795 ml Output Total 370 ml 440 ml Balance 530 ml 355 ml Free Water 120 ml IV Total 55 ml Tube Feeding 660 ml 660 ml Other 120 ml 80 ml Output Urine Total 370 ml 440 ml # Bowel Movements 2 Laboratory Tests Test 09/25/18 04:09/25/18 08:50 White Blood Count 14.8 K/UL (4.8-10.8) H Red Blood Count 3.59 M/UL (4.20-5.40) L Hemoglobin 9.4 G/DL (12.0-16.0) L Hematocrit 29.3 % (37.0-47.0) L Mean Corpuscular Volume 82 FL (80-99) Mean Corpuscular Hemoglobin 26.2 PG (27.0-31.0) L Mean Corpuscular Hemoglobin Concent 32.1 G/DL (32.0-36.0) Red Cell Distribution Width 20.1 % (11.6-14.8) H Platelet Count 233 K/UL (150-450) Mean Platelet Volume 6.9 FL (6.5-10.1) Neutrophils (%) (Auto) 84.2 % (45.0-75.0) H Lymphocytes (%) (Auto) 8.7 % (20.0-45.0) L Monocytes (%) (Auto) 5.6 % (1.0-10.0) Eosinophils (%) (Auto) 1.2 % (0.0-3.0) Basophils (%) (Auto) 0.3 % (0.0-2.0) Sodium Level 137 MMOL/L (136-145) Potassium Level 4.0 MMOL/L (3.5-5.1) Chloride Level 105 MMOL/L (98-107) Carbon Dioxide Level 24 MMOL/L (21-32) Anion Gap 8 mmol/L (5-15) Blood Urea Nitrogen 14 mg/dL (7-18) Creatinine 0.5 MG/DL (0.55-1.30) L Estimat Glomerular Filtration Rate mL/min (>60) Glucose Level 99 MG/DL (74-106) Calcium Level 7.9 MG/DL (8.5-10.1) L Phosphorus Level 4.0 MG/DL (2.5-4.9) Magnesium Level 2.2 MG/DL (1.8-2.4) Total Bilirubin 0.5 MG/DL (0.2-1.0) Aspartate Amino Transf (AST/SGOT) 8 U/L (15-37) L Alanine Aminotransferase (ALT/SGPT) 7 U/L (12-78) L Alkaline Phosphatase 45 U/L (46-116) L Total Protein 5.6 G/DL (6.4-8.2) L Albumin 2.2 G/DL (3.4-5.0) L Globulin 3.4 g/dL Albumin/Globulin Ratio 0.6 (1.0-2.7) L Arterial Blood pH 7.480 (7.350-7.450) Arterial Blood Partial Pressure CO2 30.0 mmHg (35.0-45.0) L Arterial Blood Partial Pressure O2 94.9 mmHg (75.0-100.0) Arterial Blood HCO3 22.1 mmol/L (22.0-26.0) Arterial Blood Oxygen Saturation 97.0 % (95-100) Arterial Blood Base Excess -0.7 (-2-2) Ian Test Positive Microbiology Date/Time Source Procedure Growth Status 09/23/18 11:07 Sputum Gram Stain - Final Resulted 09/23/18 11:07 Sputum Culture - Preliminary Staphylococcus Aureus Gram Negative Bacillus 1 Resulted Akbar Reno MD Sep 25, 2018 16:53
--- NOTE | 2018-09-25 19:33 | NUR ---
HAND-OFF: Report given to CHARLETTE French using SBAR.
--- NOTE | 2018-09-25 19:34 | NUR ---
NURSE NOTES: Endorsement received from CHARLETTE Beckwith. Patient opens eyes spontaneously. Orally intubated with ET 7.5, 22 lipline. AC 16, Vt 600, PEEP 5, FiO2 40%. Right nare NGT. Placement rechecked per auscultation. Ongoing feeding Glucerna 1.2 55 ml/hr. No residual noted. López catheter present, draining to urimeter. Bilateral soft wrist restraints present for attempting to pull out tubes. Right wrist g22 heplock. On seizure precautions. head of bed elevated. Bed locked and in low position. Bed alarm on.
--- NOTE | 2018-09-25 22:00 | NUR ---
NURSE NOTES: No shortness of breath. Repositioned patient.
[2018-09-26] VITALS (24 sets, daily range): BP systolic 95–157; BP diastolic 35–82
--- NOTE | 2018-09-26 | NUR ---
NURSE NOTES: Patient awake. Tolerating feeding. No sign of pain or discomfort.
[2018-09-26] MEDS: Albuterol/Ipratropium 3ml neb HHN SCH ×4 (00:59→19:12)
--- NOTE | 2018-09-26 01:00 | NUR ---
NURSE NOTES: Patient awake and restless. Reorientation done. PRN Ativan given.
[2018-09-26] MEDS: LORazepam Inj 2mg/ml 1ml IV PRN (01:14)
[2018-09-26] MEDS: Cefepime HCl 1 GM in D5W 55 ML IVPB SCH (01:14)
--- NOTE | 2018-09-26 03:00 | NUR ---
NURSE NOTES: Bed bath, change of linens, oral care done.
--- NOTE | 2018-09-26 05:00 | NUR ---
NURSE NOTES: Patient asleep. Vital signs stable.
[2018-09-26 06:15] LABS: BASOPHILS % (AUTO) 0.4 % (0.0-2.0); EOSINOPHILS % (AUTO) 1.4 % (0.0-3.0); HEMATOCRIT 29.4 % (37.0-47.0); HEMOGLOBIN 9.3 G/DL (12.0-16.0); LYMPHOCYTES % (AUTO) 13.9 % (20.0-45.0); MEAN CORPUSCULAR VOLUME 82 FL (80-99); MONOCYTES % (AUTO) 5.2 % (1.0-10.0); NEUTROPHILS % (AUTO) 79.1 % (45.0-75.0); PLATELET COUNT 197 K/UL (150-450); RED BLOOD COUNT 3.61 M/UL (4.20-5.40); RED CELL DISTRIBUTION WIDTH 19.8 % (11.6-14.8); WHITE BLOOD COUNT 12.3 K/UL (4.8-10.8)
[2018-09-26 06:45] LABS: ALANINE AMINOTRANSFERASE 9 U/L (12-78); ALBUMIN 2.4 G/DL (3.4-5.0); ALBUMIN/GLOBULIN RATIO 0.6 (1.0-2.7); ALKALINE PHOSPHATASE 40 U/L (46-116); ANION GAP 10 mmol/L (5-15); ASPARTATE AMINO TRANSFERASE 7 U/L (15-37); BILIRUBIN,TOTAL 0.5 MG/DL (0.2-1.0); BLOOD UREA NITROGEN 18 mg/dL (7-18); CALCIUM 8.4 MG/DL (8.5-10.1); CARBON DIOXIDE 26 MMOL/L (21-32); CHLORIDE 103 MMOL/L (98-107); CREATININE 0.6 MG/DL (0.55-1.30); PHOSPHORUS 4.1 MG/DL (2.5-4.9); POTASSIUM 3.5 MMOL/L (3.5-5.1); SODIUM 139 MMOL/L (136-145)
--- NOTE | 2018-09-26 07:14 | NUR ---
RD ASSESSMENT & RECOMMENDATIONS SEE CARE ACTIVITY FOR COMPLETE ASSESSMENT DAILY ESTIMATED NEEDS: Needs based on Critical care, wound/ 54kg abw 22-30 kcals/kg 0385-8617 total kcals 1.25-2 g protein/kg 68-108 g total protein 25-30 mL/kg 4353-6798 total fluid mLs NUTRITION DIAGNOSIS: 1) Altered nutrition related lab values R/T clinical condition as evidenced by critically elev pCO2 (trending down), low pH (now wnl), elev BNP (7412->1885), low K (2.5*-> wnl), low phos (1.8->wnl), low Mg (1.6->wnl). 2) Swallowing difficulty r/t respiratory status as evidenced by s/p oral intubation, on NGT feeding. CURRENT TF:Glucerna 1.2 @55ml/hr x24 hrs PO DIET RECOMMENDATIONS: [employer] EVAL UPON EXTUBATION -> LOW NA/ texture per [employer] ENTERAL NUTRITION RECOMMENDATIONS: Glucerna 1.2 @55ml/hr x24 hrs to provide 1320ml, 1584 kcal, 79g pro, 1063ml free H2O - Maintain current TF - Flush per MD. HOB over 30 degrees ADDITIONAL RECOMMENDATIONS: * Calibrated bedscale wt * Monitor BG on prednisone, niss prn * Monitor lytes, replete as needed * [employer] eval upon extubation * Wound care: add CARLTON BID + VIT C 250mg daily . .
--- NOTE | 2018-09-26 07:20 | NUR ---
HAND-OFF: Report given to CHARLETTE Barry.
--- NOTE | 2018-09-26 07:35 | NUR ---
NURSE NOTES: Received report from Shruti Deleon RN. Patient asleep in bed, opens eyes spontaneously, confused. ET 7.5, 22 at lip line hooked to vent with settings of AC 16, TV 600, FiO2 30%, PEEP 5, saturating at 98%. Right nare NGT in place with feeding of Glucerna 1.2 running at 55 cc/hr, no residual noted, HoB elevated. López catheter patent and draining well. Right wrist 22g saline lock patent and asymptomatic. Bilateral wrist restraints in place, peripheral pulses present, skin intact. Bed locked in lowest position with padded side rails up x 3. All needs attended to. Call light within reach. Will continue to monitor.
--- NOTE | 2018-09-26 08:12 | General Progress Note ---
Assessment/Plan Problem List: (1) COPD (chronic obstructive pulmonary disease) ICD Codes: J44.9 - Chronic obstructive pulmonary disease, unspecified SNOMED: 12496311 Qualifiers: Qualified Codes: J44.9 - Chronic obstructive pulmonary disease, unspecified (2) Hyponatremia ICD Codes: E87.1 - Hyponatremia SNOMED: 77927877 (3) HTN (hypertension) ICD Codes: I10 - Hypertension SNOMED: 48012085 Assessment/Plan: remained intubated electrolytes are normal today on Prednisone 40 mg daily no evidence of adrenal insufficiency or hypothyroidism continue excellent ICU care Subjective ROS Limited/Unobtainable: Yes Allergies: Coded Allergies: PIPERACILLIN (Unverified Allergy, Unknown, 05/21/18) tolerates cephalosporins TAZOBACTAM (Unverified Allergy, Unknown, 03/10/18) Subjective events noted she remained intubated in ICU on TF Objective Last 24 Hour Vital Signs Date Time Temp Pulse Resp B/P (MAP) Pulse Ox O2 Delivery O2 Flow Rate FiO2 09/26/18 08:00 64 16 97 Mechanical Ventilator 30 09/26/18 08:00 30 09/26/18 07:00 64 17 97/35 (55) 96 09/26/18 06:58 66 16 30 40 09/26/18 06:00 63 16 95/35 (55) 96 09/26/18 05:18 64 16 30 40 09/26/18 05:00 65 16 105/43 (63) 99 09/26/18 04:00 30 09/26/18 04:00 69 09/26/18 04:00 97.9 62 16 105/43 (63) 96 09/26/18 04:00 Mechanical Ventilator 09/26/18 03:24 69 16 30 40 09/26/18 03:00 63 16 123/42 (69) 99 09/26/18 02:00 68 16 105/40 (61) 97 09/26/18 01:10 70 17 100 Mechanical Ventilator 30 09/26/18 01:00 71 19 113/55 (74) 100 09/26/18 00:59 78 18 100 Mechanical Ventilator 30 09/26/18 00:58 70 18 30 40 09/26/18 00:00 Mechanical Ventilator 09/26/18 00:00 30 09/26/18 00:00 98.0 65 17 103/51 (68) 100 09/26/18 00:00 68 09/25/18 23:11 72 28 30 40 09/25/18 23:00 68 17 125/44 (71) 100 09/25/18 22:00 68 17 116/54 (74) 98 09/25/18 21:00 97.8 71 17 102/43 (62) 98 09/25/18 20:49 74 16 30 40 09/25/18 20:00 Mechanical Ventilator 09/25/18 20:00 30 09/25/18 20:00 71 09/25/18 20:00 71 20 14/42 (33) 100 09/25/18 19:35 66 16 100 Mechanical Ventilator 30 09/25/18 19:25 68 16 30 40 09/25/18 19:25 68 16 100 Mechanical Ventilator 30 09/25/18 19:00 63 16 102/42 (62) 100 09/25/18 18:00 65 16 105/43 (63) 100 09/25/18 17:05 69 16 40 09/25/18 17:00 66 16 108/41 (63) 100 09/25/18 16:00 66 09/25/18 16:00 97.7 64 16 126/52 (76) 100 09/25/18 16:00 40 09/25/18 16:00 Mechanical Ventilator 09/25/18 15:10 63 16 40 09/25/18 15:00 63 16 108/48 (68) 97 09/25/18 14:00 64 16 104/44 (64) 100 09/25/18 13:23 70 18 40 09/25/18 13:22 69 18 100 Mechanical Ventilator 40 09/25/18 13:00 65 16 100/40 (60) 100 09/25/18 12:00 68 09/25/18 12:00 98.1 68 16 108/43 (64) 100 09/25/18 12:00 Mechanical Ventilator 09/25/18 11:12 97.7 09/25/18 11:06 72 18 40 09/25/18 11:03 100 09/25/18 11:00 63 16 101/40 (60) 100 09/25/18 10:30 40 09/25/18 10:11 40 09/25/18 10:00 71 30 134/66 (88) 100 09/25/18 09:07 69 18 40 09/25/18 09:00 62 16 101/42 (61) 100 Intake and Output 09/25/18 09/26/18 19:00 07:00 Intake Total 840 ml 865 ml Output Total 1790 ml 400 ml Balance -950 ml 465 ml Free Water 120 ml 150 ml IV Total 55 ml Tube Feeding 660 ml 660 ml Other 60 ml Output Urine Total 1790 ml 400 ml Laboratory Tests 09/25/18 08:50: Arterial Blood pH 7.480H, Arterial Blood Partial Pressure CO2 30.0L, Arterial Blood Partial Pressure O2 94.9, Arterial Blood HCO3 22.1, Arterial Blood Oxygen Saturation 97.0, Arterial Blood Base Excess -0.7, Ian Test Positive 09/26/18 04:34: White Blood Count 12.3H, Red Blood Count 3.61L, Hemoglobin 9.3L, Hematocrit 29.4L, Mean Corpuscular Volume 82, Mean Corpuscular Hemoglobin 25.8L, Mean Corpuscular Hemoglobin Concent 31.7L, Red Cell Distribution Width 19.8H, Platelet Count 197, Mean Platelet Volume 7.5, Neutrophils (%) (Auto) 79.1H, Lymphocytes (%) (Auto) 13.9L, Monocytes (%) (Auto) 5.2, Eosinophils (%) (Auto) 1.4, Basophils (%) (Auto) 0.4, Sodium Level 139, Potassium Level 3.5, Chloride Level 103, Carbon Dioxide Level 26, Anion Gap 10, Blood Urea Nitrogen 18, Creatinine 0.6, Estimat Glomerular Filtration Rate , Glucose Level 98, Uric Acid 3.7, Calcium Level 8.4L, Phosphorus Level 4.1, Magnesium Level 2.1, Total Bilirubin 0.5, Aspartate Amino Transf (AST/SGOT) 7L, Alanine Aminotransferase ( ALT/SGPT) 9L, Alkaline Phosphatase 40L, C-Reactive Protein, Quantitative 7.3H, Pro-B-Type Natriuretic Peptide 1885H, Total Protein 6.1L, Albumin 2.4L, Globulin 3.7, Albumin/Globulin Ratio 0.6L Height (Feet): 5 Weight (Pounds): 174 General Appearance: moderate distress, other - intubated EENT: other - ETT + NGT Neck: normal alignment Cardiovascular: normal rate Respiratory/Chest: decreased breath sounds Abdomen: normal bowel sounds Pelvis: normal external exam Edema: 1+ Arm (L), 1+ Arm (R), 1+ Leg (L), 1+ Leg (R), 1+ Pedal (L), 1+ Pedal ( R), 1+ Generalized Objective Current Medications Medications (Trade) Dose Ordered Sig/Ibrahima Route PRN Reason Start Time Stop Time Status Last Admin Dose Admin Acetaminophen (Tylenol) 650 mg Q4H PRN ORAL Mild Pain (Pain Scale 1-3) 09/22/18 12:47 10/21/18 12:46 09/22/18 20:57 Acetaminophen/ Codeine Phosphate (Tylenol #3) 1 tab Q4H PRN ORAL ModeratePain 09/22/18 13:00 09/28/18 12:51 09/25/18 10:42 Acetaminophen/ Hydrocodone Bitart ([place] 5/325) 1 tab Q4H PRN ORAL moderate pain 09/22/18 12:52 09/28/18 12:51 Albuterol/ Ipratropium (Albuterol/ Ipratropium) 3 ml Q6HRT HHN 09/25/18 13:00 09/30/18 12:59 09/26/18 08:00 Apixaban (Eliquis) 5 mg BID ORAL 09/22/18 18:00 10/19/18 08:59 09/25/18 17:07 Cefepime HCl 1 gm/ Dextrose 55 ml @ 110 mls/hr Q24H IVPB 09/25/18 01:00 10/02/18 00:59 09/26/18 01:14 Dextrose (Dextrose 50%) 25 ml Q30M PRN IV Hypoglycemia 09/22/18 13:00 10/17/18 06:59 Dextrose (Dextrose 50%) 50 ml Q30M PRN IV Hypoglycemia 09/22/18 13:00 10/17/18 06:59 Docusate Sodium (Colace) 100 mg TID ORAL 09/22/18 13:00 10/19/18 08:59 09/25/18 17:06 Folic Acid (Folate) 5 mg DAILY ORAL 09/23/18 09:00 10/18/18 09:59 09/25/18 08:37 Furosemide (Lasix) 40 mg DAILY IV 09/26/18 09:00 10/26/18 08:59 Lorazepam (Ativan 2mg/ml 1ml) 2 mg Q4H PRN IV For Anxiety 09/22/18 13:00 09/29/18 12:59 09/26/18 01:14 Morphine Sulfate (Morphine Sulfate) 4 mg Q4H PRN IVP Severe pain(7-10) 09/22/18 12:58 09/29/18 12:57 09/23/18 22:13 Ondansetron HCl (Zofran) 4 mg Q6H PRN IVP Nausea & Vomiting 09/22/18 12:49 10/21/18 12:48 Pantoprazole (Protonix) 40 mg DAILY IV 09/23/18 09:00 10/23/18 08:59 09/25/18 08:36 Polyethylene Glycol (Miralax) 17 gm DAILYPRN PRN ORAL Constipation 09/22/18 12:50 10/21/18 12:49 Prednisone (predniSONE) 40 mg DAILY ORAL 09/23/18 09:00 10/20/18 08:59 09/25/18 08:36 Risperidone (RisperDAL) 1 mg BEDTIME ORAL 09/22/18 21:00 10/17/18 20:59 09/25/18 20:16 Thiamine HCl (Vitamin B1) 100 mg DAILY ORAL 09/23/18 09:00 10/20/18 08:59 09/25/18 08:36 Vancomycin HCl (Vanco rx to dose) 1 ea DAILY PRN MISC Per rx protocol 09/25/18 13:15 10/25/18 13:14 Vancomycin HCl 750 mg/Sodium Chloride 275 ml @ 183.333 mls/hr Q24H IVPB 09/26/18 14:00 10/01/18 13:59 Daniel Little MD Sep 26, 2018 08:12
[2018-09-26] MEDS: Thiamine 100mg tab ORAL SCH (08:53)
[2018-09-26] MEDS: Eliquis 2.5mg tablet ORAL SCH ×2 (08:53→17:59)
[2018-09-26] MEDS: Docusate 100mg/10ml Liq ORAL SCH ×3 (08:53→17:59)
[2018-09-26] MEDS: Pantoprazole Inj IV SCH (08:54)
--- NOTE | 2018-09-26 09:01 | NUR ---
NURSE NOTES: Patient seen and evaluated by Dr. Sierra at bedside. Orders placed for labs tomorrow AM.
--- NOTE | 2018-09-26 09:10 | NUR ---
NURSE NOTES: Received report from microbiology that patient's blood culture is positive for Gram+ cocci in clusters [address] Nayak paged. Awaiting call back.
--- NOTE | 2018-09-26 09:21 | Pulmonolgy Critical Care Note ---
Critical Care - Asmt/Plan Problems: (1) Respiratory failure, acute (2) Collapse of left lung Assessment & Plan: resolved (3) Atrial fibrillation with RVR (4) Hyponatremia (5) COPD (chronic obstructive pulmonary disease) (6) Anemia, chronic disease Respiratory: monitor respiratory rate, adjust FIO2, CXR, weaning trial Cardiac: continue to monitor HR/BP Renal: F/U I&O, check electrolytes Infectious Disease: check cultures Gastrointestinal: continue feedings/current rate Endocrine: monitor blood sugar Hematologic: monitor H/H, transfuse if hgb<8.5 Neurologic: PRN Morphine, keep patient comfortable Prophylaxis: Protonix, Heparin Time Spent (Minutes): 40 Notes Reviewed: cardio, renal Discussed with: nurses, consultants, mental health case managerretail advertising sales manager - Objective Last 24 Hour Vital Signs Date Time Temp Pulse Resp B/P (MAP) Pulse Ox O2 Delivery O2 Flow Rate FiO2 09/26/18 09:00 73 17 117/43 (67) 95 09/26/18 08:37 63 16 30 40 09/26/18 08:10 63 16 100 Mechanical Ventilator 30 09/26/18 08:00 98.5 61 16 105/37 (59) 96 09/26/18 08:00 64 16 97 Mechanical Ventilator 30 09/26/18 08:00 30 09/26/18 07:00 64 17 97/35 (55) 96 09/26/18 06:58 66 16 30 40 09/26/18 06:00 63 16 95/35 (55) 96 09/26/18 05:18 64 16 30 40 09/26/18 05:00 65 16 105/43 (63) 99 09/26/18 04:00 30 09/26/18 04:00 69 09/26/18 04:00 97.9 62 16 105/43 (63) 96 09/26/18 04:00 Mechanical Ventilator 09/26/18 03:24 69 16 30 40 09/26/18 03:00 63 16 123/42 (69) 99 09/26/18 02:00 68 16 105/40 (61) 97 09/26/18 01:10 70 17 100 Mechanical Ventilator 30 09/26/18 01:00 71 19 113/55 (74) 100 09/26/18 00:59 78 18 100 Mechanical Ventilator 30 09/26/18 00:58 70 18 30 40 09/26/18 00:00 Mechanical Ventilator 09/26/18 00:00 30 09/26/18 00:00 98.0 65 17 103/51 (68) 100 09/26/18 00:00 68 09/25/18 23:11 72 28 30 40 09/25/18 23:00 68 17 125/44 (71) 100 09/25/18 22:00 68 17 116/54 (74) 98 09/25/18 21:00 97.8 71 17 102/43 (62) 98 09/25/18 20:49 74 16 30 40 09/25/18 20:00 Mechanical Ventilator 09/25/18 20:00 30 09/25/18 20:00 71 09/25/18 20:00 71 20 14/42 (33) 100 09/25/18 19:35 66 16 100 Mechanical Ventilator 30 09/25/18 19:25 68 16 30 40 09/25/18 19:25 68 16 100 Mechanical Ventilator 30 09/25/18 19:00 63 16 102/42 (62) 100 09/25/18 18:00 65 16 105/43 (63) 100 09/25/18 17:05 69 16 40 09/25/18 17:00 66 16 108/41 (63) 100 09/25/18 16:00 66 09/25/18 16:00 97.7 64 16 126/52 (76) 100 09/25/18 16:00 40 09/25/18 16:00 Mechanical Ventilator 09/25/18 15:10 63 16 40 09/25/18 15:00 63 16 108/48 (68) 97 09/25/18 14:00 64 16 104/44 (64) 100 09/25/18 13:23 70 18 40 09/25/18 13:22 69 18 100 Mechanical Ventilator 40 09/25/18 13:00 65 16 100/40 (60) 100 09/25/18 12:00 68 09/25/18 12:00 98.1 68 16 108/43 (64) 100 09/25/18 12:00 Mechanical Ventilator 09/25/18 11:12 97.7 09/25/18 11:06 72 18 40 09/25/18 11:03 100 09/25/18 11:00 63 16 101/40 (60) 100 09/25/18 10:30 40 09/25/18 10:11 40 09/25/18 10:00 71 30 134/66 (88) 100 Status: awake Condition: critical HEENT: atraumatic Neck: full ROM Lungs: clear Heart: HR/BP stable Abdomen: soft, non-tender, feeding tube Extremities: edema Micro: Microbiology Date/Time Source Procedure Growth Status 09/24/18 12:25 Blood Blood Culture - Preliminary NO GROWTH AFTER 24 HOURS Resulted 09/24/18 12:15 Blood Blood Culture - Preliminary Resulted 09/23/18 11:07 Sputum Gram Stain - Final Complete 09/23/18 11:07 Sputum Culture - Final Staphylococcus Aureus Acinetobacter Baumannii Complx Complete 09/24/18 12:00 Urine,Clean Catch Urine Culture - Preliminary Gram Negative Rex Resulted Critical Care - Subjective ROS Limited/Unobtainable: Yes EKG Rhythm: Sinus Rhythm FI02: 30 Vent Support Breath Rate: 16 Vent Support Mode: AC Vent Tidal Volume: 600 Sputum Amount: Scant PEEP: 0.0 PIP: 24 Tube Feeding Amount: 55 I&O: Intake and Output 09/25/18 09/26/18 19:00 07:00 Intake Total 840 ml 865 ml Output Total 1790 ml 400 ml Balance -950 ml 465 ml Free Water 120 ml 150 ml IV Total 55 ml Tube Feeding 660 ml 660 ml Other 60 ml Output Urine Total 1790 ml 400 ml CXR: left lung remains open ET-Tube: 7.5 ET Position: 22 Labs: Laboratory Tests Test 09/26/18 04:34 White Blood Count 12.3 K/UL (4.8-10.8) H Red Blood Count 3.61 M/UL (4.20-5.40) L Hemoglobin 9.3 G/DL (12.0-16.0) L Hematocrit 29.4 % (37.0-47.0) L Mean Corpuscular Volume 82 FL (80-99) Mean Corpuscular Hemoglobin 25.8 PG (27.0-31.0) L Mean Corpuscular Hemoglobin Concent 31.7 G/DL (32.0-36.0) L Red Cell Distribution Width 19.8 % (11.6-14.8) H Platelet Count 197 K/UL (150-450) Mean Platelet Volume 7.5 FL (6.5-10.1) Neutrophils (%) (Auto) 79.1 % (45.0-75.0) H Lymphocytes (%) (Auto) 13.9 % (20.0-45.0) L Monocytes (%) (Auto) 5.2 % (1.0-10.0) Eosinophils (%) (Auto) 1.4 % (0.0-3.0) Basophils (%) (Auto) 0.4 % (0.0-2.0) Sodium Level 139 MMOL/L (136-145) Potassium Level 3.5 MMOL/L (3.5-5.1) Chloride Level 103 MMOL/L (98-107) Carbon Dioxide Level 26 MMOL/L (21-32) Anion Gap 10 mmol/L (5-15) Blood Urea Nitrogen 18 mg/dL (7-18) Creatinine 0.6 MG/DL (0.55-1.30) Estimat Glomerular Filtration Rate mL/min (>60) Glucose Level 98 MG/DL (74-106) Uric Acid 3.7 MG/DL (2.6-7.2) Calcium Level 8.4 MG/DL (8.5-10.1) L Phosphorus Level 4.1 MG/DL (2.5-4.9) Magnesium Level 2.1 MG/DL (1.8-2.4) Total Bilirubin 0.5 MG/DL (0.2-1.0) Aspartate Amino Transf (AST/SGOT) 7 U/L (15-37) L Alanine Aminotransferase (ALT/SGPT) 9 U/L (12-78) L Alkaline Phosphatase 40 U/L (46-116) L C-Reactive Protein, Quantitative 7.3 mg/dL (0.00-0.90) H Pro-B-Type Natriuretic Peptide 1885 pg/mL (0-125) H Total Protein 6.1 G/DL (6.4-8.2) L Albumin 2.4 G/DL (3.4-5.0) L Globulin 3.7 g/dL Albumin/Globulin Ratio 0.6 (1.0-2.7) L Mendel Sierra MD Sep 26, 2018 09:21
--- NOTE | 2018-09-26 09:26 | NUR ---
NURSE NOTES: Received call back from Dr. Nayak, made aware of positive blood culture, no telephone orders received.
--- NOTE | 2018-09-26 09:46 | Infectious Diseases Prog Note ---
Assessment/Plan Assessment/Plan Assessment: Low grade fever x1, SP Leukocytosis, increased (on high dose steroids); now improving -09/16 u/a 5-10, nit +, leuk +3 Bcx neg Probable PNA -sp cx MSSA, ABC ( S cefepime, Meropenem) Probable UTI -09/24 u/a wbc tnct nit +, leuk +3; ucx>100k GNR Gram positive bacteremia- real vs contamination -09/24 Bcx 06/05 GPC clusters Acute on chronic respiratory failure s/p intubation 09/22 CHF and COPD exacerbation -09/24 CXR: There is persistent opacity at the left lung base. -09/21 CT chest: Completely atelectatic left lung. This is likely due to endobronchial occlusion by debris. However, a small pulmonary hilar mass may also be present. This finding was discussed by phone with Dr. Sierra previously. Small left pleural effusion. Trace right pleural effusion. Posterior and basilar atelectatic changes of the right lung. Single enlarged aortopulmonary window lymph node. This could be neoplastic or reactive. This is increased in size since prior study 03/13/2018. Right lung groundglass opacity, nonspecific but likely on the basis of mild pulmonary edema. Mild cardiomegaly. Pericardial effusion Hypokalemia Hx of recurrent CONS bacteremia -07/28/18 Bcx 07/06 CONS; 07/29 Bcx Neg; 08/23 BCx neg -2d echo: no obvious vegetation -05/19/18 Bcx 3/ S. hominis sp hominis; 05/21 Bc xNeg 2d eCho: no vegetations. Focal aortic valve sclerosis with reduced cusp excursion. Thickened mitral valve leaflets with reduced excursion. 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, s/p Rx SP VDRF, 04/10 Sp extubated Legionella Ur Ag: Neg, Legionella IgM + / IgG - Scx: No sig growth Flu screen negative Atrial flutter dCHF COPD CAD s/p stents Hypertension Seizure disorder Schizophrenia Depression History of intraventricular pacemaker implantation GERD CVA/TIA b/l hip replacement hx of L DVT history of alcohol abuse hx of recurrent admissions hx of high grade CONS bacteremia SNF resident Plan: -Cont empiric Cefepime #3 for PNA and UTI and IV Vancomycin #2 for bacteremia pending ID and sensi and repeat Bcx -Add INH colistin -Bcx x2 -f/u cx -Monitor CBC/CMP, temperatures -Cdiff if diarrhea -ETT/ICU care -aspiration precautions Thank you for this consultation. Will continue to follow along with you. Discussed with RN. Subjective Allergies: Coded Allergies: PIPERACILLIN (Unverified Allergy, Unknown, 05/21/18) tolerates cephalosporins TAZOBACTAM (Unverified Allergy, Unknown, 03/10/18) Subjective afebrile >72hrs leukocytosis improving bacteremic remains intubated Objective Vital Signs Last 24 Hour Vital Signs Date Time Temp Pulse Resp B/P (MAP) Pulse Ox O2 Delivery O2 Flow Rate FiO2 09/26/18 09:00 73 17 117/43 (67) 95 09/26/18 08:37 63 16 30 40 09/26/18 08:10 63 16 100 Mechanical Ventilator 30 09/26/18 08:00 98.5 61 16 105/37 (59) 96 09/26/18 08:00 64 16 97 Mechanical Ventilator 30 09/26/18 08:00 30 09/26/18 07:00 64 17 97/35 (55) 96 09/26/18 06:58 66 16 30 40 09/26/18 06:00 63 16 95/35 (55) 96 09/26/18 05:18 64 16 30 40 09/26/18 05:00 65 16 105/43 (63) 99 09/26/18 04:00 30 09/26/18 04:00 69 09/26/18 04:00 97.9 62 16 105/43 (63) 96 09/26/18 04:00 Mechanical Ventilator 09/26/18 03:24 69 16 30 40 09/26/18 03:00 63 16 123/42 (69) 99 09/26/18 02:00 68 16 105/40 (61) 97 09/26/18 01:10 70 17 100 Mechanical Ventilator 30 09/26/18 01:00 71 19 113/55 (74) 100 09/26/18 00:59 78 18 100 Mechanical Ventilator 30 09/26/18 00:58 70 18 30 40 09/26/18 00:00 Mechanical Ventilator 09/26/18 00:00 30 09/26/18 00:00 98.0 65 17 103/51 (68) 100 09/26/18 00:00 68 09/25/18 23:11 72 28 30 40 09/25/18 23:00 68 17 125/44 (71) 100 09/25/18 22:00 68 17 116/54 (74) 98 09/25/18 21:00 97.8 71 17 102/43 (62) 98 09/25/18 20:49 74 16 30 40 09/25/18 20:00 Mechanical Ventilator 09/25/18 20:00 30 09/25/18 20:00 71 09/25/18 20:00 71 20 14/42 (33) 100 09/25/18 19:35 66 16 100 Mechanical Ventilator 30 09/25/18 19:25 68 16 30 40 09/25/18 19:25 68 16 100 Mechanical Ventilator 30 09/25/18 19:00 63 16 102/42 (62) 100 09/25/18 18:00 65 16 105/43 (63) 100 09/25/18 17:05 69 16 40 09/25/18 17:00 66 16 108/41 (63) 100 09/25/18 16:00 66 09/25/18 16:00 97.7 64 16 126/52 (76) 100 09/25/18 16:00 40 09/25/18 16:00 Mechanical Ventilator 09/25/18 15:10 63 16 40 09/25/18 15:00 63 16 108/48 (68) 97 09/25/18 14:00 64 16 104/44 (64) 100 09/25/18 13:23 70 18 40 09/25/18 13:22 69 18 100 Mechanical Ventilator 40 09/25/18 13:00 65 16 100/40 (60) 100 09/25/18 12:00 68 09/25/18 12:00 98.1 68 16 108/43 (64) 100 09/25/18 12:00 Mechanical Ventilator 09/25/18 11:12 97.7 09/25/18 11:06 72 18 40 09/25/18 11:03 100 09/25/18 11:00 63 16 101/40 (60) 100 09/25/18 10:30 40 09/25/18 10:11 40 09/25/18 10:00 71 30 134/66 (88) 100 Height (Feet): 5 Weight (Pounds): 174 Objective GENERAL: Shows to be elderly female, in no respiratory distress. NECK: Supple. No jugular venous distention. LUNGS: Inspiratory and expiratory wheezes. CARDIAC: Irregularly irregular. No heaves, thrills, or gallops noted. ABDOMEN: Soft, nontender. Positive bowel sounds. EXTREMITIES: There is no clubbing, cyanosis, or edema. NEUROLOGICAL: She is awake, alert, responsive. Microbiology Date/Time Source Procedure Growth Status 09/24/18 12:25 Blood Blood Culture - Preliminary NO GROWTH AFTER 24 HOURS Resulted 09/24/18 12:15 Blood Blood Culture - Preliminary Resulted 09/23/18 11:07 Sputum Gram Stain - Final Complete 09/23/18 11:07 Sputum Culture - Final Staphylococcus Aureus Acinetobacter Baumannii Complx Complete 09/24/18 12:00 Urine,Clean Catch Urine Culture - Preliminary Gram Negative Rex Resulted Laboratory Tests Test 09/26/18 04:34 White Blood Count 12.3 K/UL (4.8-10.8) H Red Blood Count 3.61 M/UL (4.20-5.40) L Hemoglobin 9.3 G/DL (12.0-16.0) L Hematocrit 29.4 % (37.0-47.0) L Mean Corpuscular Volume 82 FL (80-99) Mean Corpuscular Hemoglobin 25.8 PG (27.0-31.0) L Mean Corpuscular Hemoglobin Concent 31.7 G/DL (32.0-36.0) L Red Cell Distribution Width 19.8 % (11.6-14.8) H Platelet Count 197 K/UL (150-450) Mean Platelet Volume 7.5 FL (6.5-10.1) Neutrophils (%) (Auto) 79.1 % (45.0-75.0) H Lymphocytes (%) (Auto) 13.9 % (20.0-45.0) L Monocytes (%) (Auto) 5.2 % (1.0-10.0) Eosinophils (%) (Auto) 1.4 % (0.0-3.0) Basophils (%) (Auto) 0.4 % (0.0-2.0) Sodium Level 139 MMOL/L (136-145) Potassium Level 3.5 MMOL/L (3.5-5.1) Chloride Level 103 MMOL/L (98-107) Carbon Dioxide Level 26 MMOL/L (21-32) Anion Gap 10 mmol/L (5-15) Blood Urea Nitrogen 18 mg/dL (7-18) Creatinine 0.6 MG/DL (0.55-1.30) Estimat Glomerular Filtration Rate mL/min (>60) Glucose Level 98 MG/DL (74-106) Uric Acid 3.7 MG/DL (2.6-7.2) Calcium Level 8.4 MG/DL (8.5-10.1) L Phosphorus Level 4.1 MG/DL (2.5-4.9) Magnesium Level 2.1 MG/DL (1.8-2.4) Total Bilirubin 0.5 MG/DL (0.2-1.0) Aspartate Amino Transf (AST/SGOT) 7 U/L (15-37) L Alanine Aminotransferase (ALT/SGPT) 9 U/L (12-78) L Alkaline Phosphatase 40 U/L (46-116) L C-Reactive Protein, Quantitative 7.3 mg/dL (0.00-0.90) H Pro-B-Type Natriuretic Peptide 1885 pg/mL (0-125) H Total Protein 6.1 G/DL (6.4-8.2) L Albumin 2.4 G/DL (3.4-5.0) L Globulin 3.7 g/dL Albumin/Globulin Ratio 0.6 (1.0-2.7) L Current Medications Medications (Trade) Dose Ordered Sig/Ibrahima Route PRN Reason Start Time Stop Time Status Last Admin Dose Admin Acetaminophen (Tylenol) 650 mg Q4H PRN ORAL Mild Pain (Pain Scale 1-3) 09/22/18 12:47 10/21/18 12:46 09/22/18 20:57 Acetaminophen/ Codeine Phosphate (Tylenol #3) 1 tab Q4H PRN ORAL ModeratePain 09/22/18 13:00 09/28/18 12:51 09/25/18 10:42 Acetaminophen/ Hydrocodone Bitart (Bivalve 5/325) 1 tab Q4H PRN ORAL moderate pain 09/22/18 12:52 09/28/18 12:51 Albuterol/ Ipratropium (Albuterol/ Ipratropium) 3 ml Q6HRT HHN 09/25/18 13:00 09/30/18 12:59 09/26/18 08:00 Apixaban (Eliquis) 5 mg BID ORAL 09/22/18 18:00 10/19/18 08:59 09/26/18 08:53 Cefepime HCl 1 gm/ Dextrose 55 ml @ 110 mls/hr Q24H IVPB 09/25/18 01:00 10/02/18 00:59 09/26/18 01:14 Dextrose (Dextrose 50%) 25 ml Q30M PRN IV Hypoglycemia 09/22/18 13:00 10/17/18 06:59 Dextrose (Dextrose 50%) 50 ml Q30M PRN IV Hypoglycemia 09/22/18 13:00 10/17/18 06:59 Docusate Sodium (Colace) 100 mg TID ORAL 09/22/18 13:00 10/19/18 08:59 09/26/18 08:53 Folic Acid (Folate) 5 mg DAILY ORAL 09/23/18 09:00 10/18/18 09:59 09/26/18 08:54 Furosemide (Lasix) 40 mg DAILY IV 09/26/18 09:00 10/26/18 08:59 09/26/18 08:54 Lorazepam (Ativan 2mg/ml 1ml) 2 mg Q4H PRN IV For Anxiety 09/22/18 13:00 09/29/18 12:59 09/26/18 01:14 Morphine Sulfate (Morphine Sulfate) 4 mg Q4H PRN IVP Severe pain(7-10) 09/22/18 12:58 09/29/18 12:57 09/23/18 22:13 Ondansetron HCl (Zofran) 4 mg Q6H PRN IVP Nausea & Vomiting 09/22/18 12:49 10/21/18 12:48 Pantoprazole (Protonix) 40 mg DAILY IV 09/23/18 09:00 10/23/18 08:59 09/26/18 08:54 Polyethylene Glycol (Miralax) 17 gm DAILYPRN PRN ORAL Constipation 09/22/18 12:50 10/21/18 12:49 Prednisone (predniSONE) 40 mg DAILY ORAL 09/23/18 09:00 10/20/18 08:59 09/26/18 08:54 Risperidone (RisperDAL) 1 mg BEDTIME ORAL 09/22/18 21:00 10/17/18 20:59 09/25/18 20:16 Thiamine HCl (Vitamin B1) 100 mg DAILY ORAL 09/23/18 09:00 10/20/18 08:59 09/26/18 08:53 Vancomycin HCl (Vanco rx to dose) 1 ea DAILY PRN MISC Per rx protocol 09/25/18 13:15 10/25/18 13:14 Vancomycin HCl 750 mg/Sodium Chloride 275 ml @ 183.333 mls/hr Q24H IVPB 09/26/18 14:00 10/01/18 13:59 Danica Nayak M.D. Sep 26, 2018 09:46
--- NOTE | 2018-09-26 09:48 | NUR ---
NURSE NOTES: Patient unable to tolerate weaning, only lasted 2 minutes on CPAP mode. Placed back on previous settings.
--- NOTE | 2018-09-26 09:53 | Diagnostic Imaging Report ---
EXAM: XR Chest, 1 View CLINICAL HISTORY: DYSPNEA TECHNIQUE: Frontal view of the chest. COMPARISON: Chest x-ray dated 09/25/18 FINDINGS: Lungs: Unchanged appearance of mild pulmonary interstitial edema and left lung base atelectasis. Pleural space: Unchanged small left pleural effusion. Heart: Stable appearance, with borderline cardiac enlargement. Mediastinum: Unremarkable. Bones/joints: Degenerative changes throughout the visualized shoulders and spine. Vasculature: Atherosclerotic calcifications are noted within the aortic arch. Tubes, lines and devices: Endotracheal tube tip 2.6 cm above the ramesh. NG tube extends below the diaphragm and its tip is not visualized. Telemetry leads overlie the thorax. IMPRESSION: No significant interval change compared to the prior exam.
--- NOTE | 2018-09-26 10:45 | NUR ---
NURSE NOTES: Patient seen and evaluated by Dr. Reno at bedside. VSS. No new orders received.
--- NOTE | 2018-09-26 10:51 | Cardiology Progress Note ---
Assessment/Plan Assessment/Plan 1. Bronchospasm. 2. Possible left-sided infiltrate or pneumonia. 3. Diastolic heart failure history. 4. Permanent atrial fibrillation. 5. lung collapse 6. hs of pacer in icu thomas vent f lung col,lapswe resolved vr seem fine bp is fien at time tiem pulm toilette abx on eliquis failed to wean lasix today Subjective ROS Limited/Unobtainable: Yes Subjective intubated on the vent Objective Last 24 Hour Vital Signs Date Time Temp Pulse Resp B/P (MAP) Pulse Ox O2 Delivery O2 Flow Rate FiO2 09/26/18 09:00 73 17 117/43 (67) 95 09/26/18 08:37 63 16 30 40 09/26/18 08:10 63 16 100 Mechanical Ventilator 30 09/26/18 08:00 98.5 61 16 105/37 (59) 96 09/26/18 08:00 64 16 97 Mechanical Ventilator 30 09/26/18 08:00 30 09/26/18 08:00 Mechanical Ventilator 09/26/18 07:00 64 17 97/35 (55) 96 09/26/18 06:58 66 16 30 40 09/26/18 06:00 63 16 95/35 (55) 96 09/26/18 05:18 64 16 30 40 09/26/18 05:00 65 16 105/43 (63) 99 09/26/18 04:00 30 09/26/18 04:00 69 09/26/18 04:00 97.9 62 16 105/43 (63) 96 09/26/18 04:00 Mechanical Ventilator 09/26/18 03:24 69 16 30 40 09/26/18 03:00 63 16 123/42 (69) 99 09/26/18 02:00 68 16 105/40 (61) 97 09/26/18 01:10 70 17 100 Mechanical Ventilator 30 09/26/18 01:00 71 19 113/55 (74) 100 09/26/18 00:59 78 18 100 Mechanical Ventilator 30 09/26/18 00:58 70 18 30 40 09/26/18 00:00 Mechanical Ventilator 09/26/18 00:00 30 09/26/18 00:00 98.0 65 17 103/51 (68) 100 09/26/18 00:00 68 09/25/18 23:11 72 28 30 40 09/25/18 23:00 68 17 125/44 (71) 100 09/25/18 22:00 68 17 116/54 (74) 98 09/25/18 21:00 97.8 71 17 102/43 (62) 98 09/25/18 20:49 74 16 30 40 09/25/18 20:00 Mechanical Ventilator 09/25/18 20:00 30 09/25/18 20:00 71 09/25/18 20:00 71 20 14/42 (33) 100 09/25/18 19:35 66 16 100 Mechanical Ventilator 30 09/25/18 19:25 68 16 30 40 09/25/18 19:25 68 16 100 Mechanical Ventilator 30 09/25/18 19:00 63 16 102/42 (62) 100 09/25/18 18:00 65 16 105/43 (63) 100 09/25/18 17:05 69 16 40 09/25/18 17:00 66 16 108/41 (63) 100 09/25/18 16:00 66 09/25/18 16:00 97.7 64 16 126/52 (76) 100 09/25/18 16:00 40 09/25/18 16:00 Mechanical Ventilator 09/25/18 15:10 63 16 40 09/25/18 15:00 63 16 108/48 (68) 97 09/25/18 14:00 64 16 104/44 (64) 100 09/25/18 13:23 70 18 40 09/25/18 13:22 69 18 100 Mechanical Ventilator 40 09/25/18 13:00 65 16 100/40 (60) 100 09/25/18 12:00 68 09/25/18 12:00 98.1 68 16 108/43 (64) 100 09/25/18 12:00 Mechanical Ventilator 09/25/18 11:12 97.7 09/25/18 11:06 72 18 40 09/25/18 11:03 100 09/25/18 11:00 63 16 101/40 (60) 100 General Appearance: on vent, patient on isolation Cardiovascular: irregularly irregular Respiratory/Chest: lungs clear Abdomen: normal bowel sounds, non tender, soft Extremities: no swelling Intake and Output 09/25/18 09/26/18 19:00 07:00 Intake Total 840 ml 865 ml Output Total 1790 ml 400 ml Balance -950 ml 465 ml Free Water 120 ml 150 ml IV Total 55 ml Tube Feeding 660 ml 660 ml Other 60 ml Output Urine Total 1790 ml 400 ml Laboratory Tests Test 09/26/18 04:34 09/26/18 10:00 White Blood Count 12.3 K/UL (4.8-10.8) H Red Blood Count 3.61 M/UL (4.20-5.40) L Hemoglobin 9.3 G/DL (12.0-16.0) L Hematocrit 29.4 % (37.0-47.0) L Mean Corpuscular Volume 82 FL (80-99) Mean Corpuscular Hemoglobin 25.8 PG (27.0-31.0) L Mean Corpuscular Hemoglobin Concent 31.7 G/DL (32.0-36.0) L Red Cell Distribution Width 19.8 % (11.6-14.8) H Platelet Count 197 K/UL (150-450) Mean Platelet Volume 7.5 FL (6.5-10.1) Neutrophils (%) (Auto) 79.1 % (45.0-75.0) H Lymphocytes (%) (Auto) 13.9 % (20.0-45.0) L Monocytes (%) (Auto) 5.2 % (1.0-10.0) Eosinophils (%) (Auto) 1.4 % (0.0-3.0) Basophils (%) (Auto) 0.4 % (0.0-2.0) Sodium Level 139 MMOL/L (136-145) Potassium Level 3.5 MMOL/L (3.5-5.1) Chloride Level 103 MMOL/L (98-107) Carbon Dioxide Level 26 MMOL/L (21-32) Anion Gap 10 mmol/L (5-15) Blood Urea Nitrogen 18 mg/dL (7-18) Creatinine 0.6 MG/DL (0.55-1.30) Estimat Glomerular Filtration Rate mL/min (>60) Glucose Level 98 MG/DL (74-106) Uric Acid 3.7 MG/DL (2.6-7.2) Calcium Level 8.4 MG/DL (8.5-10.1) L Phosphorus Level 4.1 MG/DL (2.5-4.9) Magnesium Level 2.1 MG/DL (1.8-2.4) Total Bilirubin 0.5 MG/DL (0.2-1.0) Aspartate Amino Transf (AST/SGOT) 7 U/L (15-37) L Alanine Aminotransferase (ALT/SGPT) 9 U/L (12-78) L Alkaline Phosphatase 40 U/L (46-116) L C-Reactive Protein, Quantitative 7.3 mg/dL (0.00-0.90) H Pro-B-Type Natriuretic Peptide 1885 pg/mL (0-125) H Total Protein 6.1 G/DL (6.4-8.2) L Albumin 2.4 G/DL (3.4-5.0) L Globulin 3.7 g/dL Albumin/Globulin Ratio 0.6 (1.0-2.7) L Arterial Blood pH 7.516 (7.350-7.450) Arterial Blood Partial Pressure CO2 31.5 mmHg (35.0-45.0) L Arterial Blood Partial Pressure O2 66.2 mmHg (75.0-100.0) L Arterial Blood HCO3 24.9 mmol/L (22.0-26.0) Arterial Blood Oxygen Saturation 92.6 % (95-100) L Arterial Blood Base Excess 2.3 (-2-2) H Ian Test Positive Microbiology Date/Time Source Procedure Growth Status 09/24/18 12:25 Blood Blood Culture - Preliminary NO GROWTH AFTER 24 HOURS Resulted 09/24/18 12:15 Blood Blood Culture - Preliminary Resulted 09/23/18 11:07 Sputum Gram Stain - Final Complete 09/23/18 11:07 Sputum Culture - Final Staphylococcus Aureus Acinetobacter Baumannii Complx Complete 09/24/18 12:00 Urine,Clean Catch Urine Culture - Preliminary Gram Negative Rex Resulted Akbar Reno MD Sep 26, 2018 10:51
--- NOTE | 2018-09-26 12:15 | NUR ---
NURSE NOTES: Patient noted with shearing on sacral area and erythema on perianal area. Wound care done on 2 new wounds and bilateral heel pressure ulcer present on admission. Patient turned and repositioned. Will continue to monitor.
--- NOTE | 2018-09-26 12:21 | Nephrology Progress Note ---
Assessment/Plan Problem List: (1) Respiratory failure, acute (2) Hyponatremia (3) Seizure disorder (4) Acute diastolic CHF (congestive heart failure) (5) COPD (chronic obstructive pulmonary disease) (6) Pacemaker Assessment HypoNatremia ? Etiology: depletional / Diuretics / SIADH ... bronchoscopy for left lung collapse Acute respiratory failure on BIPAP- COPD Encephalopathy due to high CO2 Pacemaker UTI Low MCV Anemia Hypoalbuminemia EjFx 55% last admission h/o Atfib Plan Plan; pulm intervention for left lung collapse- now expanded intubated Off Diamox for now López 3% saline as needed PRN lasix IV iron monitor lytes Anemia clinton solumedrol to po prednisone per orders Subjective ROS Limited/Unobtainable: Yes Objective Objective Last 24 Hour Vital Signs Date Time Temp Pulse Resp B/P (MAP) Pulse Ox O2 Delivery O2 Flow Rate FiO2 09/26/18 11:28 67 16 40 40 09/26/18 09:00 73 17 117/43 (67) 95 09/26/18 08:37 63 16 30 40 09/26/18 08:10 63 16 100 Mechanical Ventilator 30 09/26/18 08:00 98.5 61 16 105/37 (59) 96 09/26/18 08:00 64 16 97 Mechanical Ventilator 30 09/26/18 08:00 30 09/26/18 08:00 Mechanical Ventilator 09/26/18 07:00 64 17 97/35 (55) 96 09/26/18 06:58 66 16 30 40 09/26/18 06:00 63 16 95/35 (55) 96 09/26/18 05:18 64 16 30 40 09/26/18 05:00 65 16 105/43 (63) 99 09/26/18 04:00 30 09/26/18 04:00 69 09/26/18 04:00 97.9 62 16 105/43 (63) 96 09/26/18 04:00 Mechanical Ventilator 09/26/18 03:24 69 16 30 40 09/26/18 03:00 63 16 123/42 (69) 99 09/26/18 02:00 68 16 105/40 (61) 97 09/26/18 01:10 70 17 100 Mechanical Ventilator 30 09/26/18 01:00 71 19 113/55 (74) 100 09/26/18 00:59 78 18 100 Mechanical Ventilator 30 09/26/18 00:58 70 18 30 40 09/26/18 00:00 Mechanical Ventilator 09/26/18 00:00 30 09/26/18 00:00 98.0 65 17 103/51 (68) 100 09/26/18 00:00 68 09/25/18 23:11 72 28 30 40 09/25/18 23:00 68 17 125/44 (71) 100 09/25/18 22:00 68 17 116/54 (74) 98 09/25/18 21:00 97.8 71 17 102/43 (62) 98 09/25/18 20:49 74 16 30 40 09/25/18 20:00 Mechanical Ventilator 09/25/18 20:00 30 09/25/18 20:00 71 09/25/18 20:00 71 20 14/42 (33) 100 09/25/18 19:35 66 16 100 Mechanical Ventilator 30 09/25/18 19:25 68 16 30 40 09/25/18 19:25 68 16 100 Mechanical Ventilator 30 09/25/18 19:00 63 16 102/42 (62) 100 09/25/18 18:00 65 16 105/43 (63) 100 09/25/18 17:05 69 16 40 09/25/18 17:00 66 16 108/41 (63) 100 09/25/18 16:00 66 09/25/18 16:00 97.7 64 16 126/52 (76) 100 09/25/18 16:00 40 09/25/18 16:00 Mechanical Ventilator 09/25/18 15:10 63 16 40 09/25/18 15:00 63 16 108/48 (68) 97 09/25/18 14:00 64 16 104/44 (64) 100 09/25/18 13:23 70 18 40 09/25/18 13:22 69 18 100 Mechanical Ventilator 40 09/25/18 13:00 65 16 100/40 (60) 100 Intake and Output 09/25/18 09/26/18 19:00 07:00 Intake Total 840 ml 865 ml Output Total 1790 ml 400 ml Balance -950 ml 465 ml Free Water 120 ml 150 ml IV Total 55 ml Tube Feeding 660 ml 660 ml Other 60 ml Output Urine Total 1790 ml 400 ml Laboratory Tests 09/26/18 04:34: White Blood Count 12.3H, Red Blood Count 3.61L, Hemoglobin 9.3L, Hematocrit 29.4L, Mean Corpuscular Volume 82, Mean Corpuscular Hemoglobin 25.8L, Mean Corpuscular Hemoglobin Concent 31.7L, Red Cell Distribution Width 19.8H, Platelet Count 197, Mean Platelet Volume 7.5, Neutrophils (%) (Auto) 79.1H, Lymphocytes (%) (Auto) 13.9L, Monocytes (%) (Auto) 5.2, Eosinophils (%) (Auto) 1.4, Basophils (%) (Auto) 0.4, Sodium Level 139, Potassium Level 3.5, Chloride Level 103, Carbon Dioxide Level 26, Anion Gap 10, Blood Urea Nitrogen 18, Creatinine 0.6, Estimat Glomerular Filtration Rate , Glucose Level 98, Uric Acid 3.7, Calcium Level 8.4L, Phosphorus Level 4.1, Magnesium Level 2.1, Total Bilirubin 0.5, Aspartate Amino Transf (AST/SGOT) 7L, Alanine Aminotransferase ( ALT/SGPT) 9L, Alkaline Phosphatase 40L, C-Reactive Protein, Quantitative 7.3H, Pro-B-Type Natriuretic Peptide 1885H, Total Protein 6.1L, Albumin 2.4L, Globulin 3.7, Albumin/Globulin Ratio 0.6L 09/26/18 10:00: Arterial Blood pH 7.516H, Arterial Blood Partial Pressure CO2 31.5L, Arterial Blood Partial Pressure O2 66.2L, Arterial Blood HCO3 24.9, Arterial Blood Oxygen Saturation 92.6L, Arterial Blood Base Excess 2.3H, Ian Test Positive Height (Feet): 5 Weight (Pounds): 174 General Appearance: no apparent distress EENT: other - vented Cardiovascular: normal rate Respiratory/Chest: decreased breath sounds Abdomen: soft Objective no change Danilo Huber MD Sep 26, 2018 12:21
[2018-09-26] MEDS: Colistin for inhalation INH SCH ×2 (13:16→22:56)
--- NOTE | 2018-09-26 13:20 | NUR ---
NURSE NOTES:WOUND CARE NOTES:Pt noted to have partial thickness shearing to sacrum (L)0.5cm x (W)0.5cm.Base of wound is moist-viable. Edges adherent and flat .Periwound without erythema or induration.Small amt sanguineous exudate Partial thickness wound noted to darno-anal area.Base of wound is moist -viable. Erythema daron-anal area. Non-blanchable erythema without fluctuance or induration noted to R heel and plantar R heel. L heel pink and blanchable. Tx. Plan:Apply Triad Paste to sacrum. Cover with Optifoam drsg. Change every 3 days and prn. Apply Triad Paste to perianal area with each perineal care. Apply Cavilon Skin Barrier to both heels .Cover each heel with Optifoam drsg. Change every 7 days and prn. Reposition at least every 2 hours or as tolerated. APM/KELECHI Mattress overlay. Off-load heels with pillow.
[2018-09-26] MEDS: Vancomycin 750mg/NS 275ml IVPB SCH ×2 (14:22)
--- NOTE | 2018-09-26 14:37 | NUR ---
NURSE NOTES: Patient seen and evaluated by Dr. Milian at bedside. No new orders received. VSS.
--- NOTE | 2018-09-26 14:51 | Cardiac Electrophysiology PN ---
Assessment/Plan Assessment/Plan 1. 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 Chronic atrial fibrillation. Rate controlled off any antiarrhythmics. On Eliquis 5 mg bid. Hold if needs tracheostomy or Bronchoscopy 3. Severe COPD. On Solu-Medrol. 4. Diastolic congestive heart failure. 5. Diabetes. 6. Left lung collapse. Intubated on the vent. DYLAN RN Subjective Subjective In ICU intubated on the vent in atrial fib Objective Last 24 Hour Vital Signs Date Time Temp Pulse Resp B/P (MAP) Pulse Ox O2 Delivery O2 Flow Rate FiO2 09/26/18 13:21 70 16 99 Mechanical Ventilator 40 09/26/18 13:11 67 16 40 40 09/26/18 13:11 67 16 96 Mechanical Ventilator 40 09/26/18 11:28 67 16 40 40 09/26/18 09:00 73 17 117/43 (67) 95 09/26/18 08:37 63 16 30 40 09/26/18 08:10 63 16 100 Mechanical Ventilator 30 09/26/18 08:00 98.5 61 16 105/37 (59) 96 09/26/18 08:00 64 16 97 Mechanical Ventilator 30 09/26/18 08:00 30 09/26/18 08:00 Mechanical Ventilator 09/26/18 07:00 64 17 97/35 (55) 96 09/26/18 06:58 66 16 30 40 09/26/18 06:00 63 16 95/35 (55) 96 09/26/18 05:18 64 16 30 40 09/26/18 05:00 65 16 105/43 (63) 99 09/26/18 04:00 30 09/26/18 04:00 69 09/26/18 04:00 97.9 62 16 105/43 (63) 96 09/26/18 04:00 Mechanical Ventilator 09/26/18 03:24 69 16 30 40 09/26/18 03:00 63 16 123/42 (69) 99 09/26/18 02:00 68 16 105/40 (61) 97 09/26/18 01:10 70 17 100 Mechanical Ventilator 30 09/26/18 01:00 71 19 113/55 (74) 100 09/26/18 00:59 78 18 100 Mechanical Ventilator 30 09/26/18 00:58 70 18 30 40 09/26/18 00:00 Mechanical Ventilator 09/26/18 00:00 30 09/26/18 00:00 98.0 65 17 103/51 (68) 100 09/26/18 00:00 68 09/25/18 23:11 72 28 30 40 09/25/18 23:00 68 17 125/44 (71) 100 09/25/18 22:00 68 17 116/54 (74) 98 09/25/18 21:00 97.8 71 17 102/43 (62) 98 09/25/18 20:49 74 16 30 40 09/25/18 20:00 Mechanical Ventilator 09/25/18 20:00 30 09/25/18 20:00 71 09/25/18 20:00 71 20 14/42 (33) 100 09/25/18 19:35 66 16 100 Mechanical Ventilator 30 09/25/18 19:25 68 16 30 40 09/25/18 19:25 68 16 100 Mechanical Ventilator 30 09/25/18 19:00 63 16 102/42 (62) 100 09/25/18 18:00 65 16 105/43 (63) 100 09/25/18 17:05 69 16 40 09/25/18 17:00 66 16 108/41 (63) 100 09/25/18 16:00 66 09/25/18 16:00 97.7 64 16 126/52 (76) 100 09/25/18 16:00 40 09/25/18 16:00 Mechanical Ventilator 09/25/18 15:10 63 16 40 09/25/18 15:00 63 16 108/48 (68) 97 Intake and Output 09/25/18 09/26/18 19:00 07:00 Intake Total 840 ml 865 ml Output Total 1790 ml 400 ml Balance -950 ml 465 ml Free Water 120 ml 150 ml IV Total 55 ml Tube Feeding 660 ml 660 ml Other 60 ml Output Urine Total 1790 ml 400 ml Laboratory Tests Test 09/26/18 04:34 09/26/18 10:00 White Blood Count 12.3 K/UL (4.8-10.8) H Red Blood Count 3.61 M/UL (4.20-5.40) L Hemoglobin 9.3 G/DL (12.0-16.0) L Hematocrit 29.4 % (37.0-47.0) L Mean Corpuscular Volume 82 FL (80-99) Mean Corpuscular Hemoglobin 25.8 PG (27.0-31.0) L Mean Corpuscular Hemoglobin Concent 31.7 G/DL (32.0-36.0) L Red Cell Distribution Width 19.8 % (11.6-14.8) H Platelet Count 197 K/UL (150-450) Mean Platelet Volume 7.5 FL (6.5-10.1) Neutrophils (%) (Auto) 79.1 % (45.0-75.0) H Lymphocytes (%) (Auto) 13.9 % (20.0-45.0) L Monocytes (%) (Auto) 5.2 % (1.0-10.0) Eosinophils (%) (Auto) 1.4 % (0.0-3.0) Basophils (%) (Auto) 0.4 % (0.0-2.0) Sodium Level 139 MMOL/L (136-145) Potassium Level 3.5 MMOL/L (3.5-5.1) Chloride Level 103 MMOL/L (98-107) Carbon Dioxide Level 26 MMOL/L (21-32) Anion Gap 10 mmol/L (5-15) Blood Urea Nitrogen 18 mg/dL (7-18) Creatinine 0.6 MG/DL (0.55-1.30) Estimat Glomerular Filtration Rate mL/min (>60) Glucose Level 98 MG/DL (74-106) Uric Acid 3.7 MG/DL (2.6-7.2) Calcium Level 8.4 MG/DL (8.5-10.1) L Phosphorus Level 4.1 MG/DL (2.5-4.9) Magnesium Level 2.1 MG/DL (1.8-2.4) Total Bilirubin 0.5 MG/DL (0.2-1.0) Aspartate Amino Transf (AST/SGOT) 7 U/L (15-37) L Alanine Aminotransferase (ALT/SGPT) 9 U/L (12-78) L Alkaline Phosphatase 40 U/L (46-116) L C-Reactive Protein, Quantitative 7.3 mg/dL (0.00-0.90) H Pro-B-Type Natriuretic Peptide 1885 pg/mL (0-125) H Total Protein 6.1 G/DL (6.4-8.2) L Albumin 2.4 G/DL (3.4-5.0) L Globulin 3.7 g/dL Albumin/Globulin Ratio 0.6 (1.0-2.7) L Arterial Blood pH 7.516 (7.350-7.450) Arterial Blood Partial Pressure CO2 31.5 mmHg (35.0-45.0) L Arterial Blood Partial Pressure O2 66.2 mmHg (75.0-100.0) L Arterial Blood HCO3 24.9 mmol/L (22.0-26.0) Arterial Blood Oxygen Saturation 92.6 % (95-100) L Arterial Blood Base Excess 2.3 (-2-2) H Ian Test Positive Microbiology Date/Time Source Procedure Growth Status 09/24/18 12:25 Blood Blood Culture - Preliminary NO GROWTH AFTER 24 HOURS Resulted 09/24/18 12:15 Blood Blood Culture - Preliminary Resulted 09/24/18 12:00 Urine,Clean Catch Urine Culture - Preliminary Gram Negative Rex Resulted Objective HEAD AND NECK: Mild JVD. LUNGS: Coarse rhonchi bilaterally. Decrease breath sounds on the left CARDIOVASCULAR: Irregular S1 and S2 with no gallop. ABDOMEN: Soft. EXTREMITIES: No pitting edema. Yohan Milian MD Sep 26, 2018 14:51
--- NOTE | 2018-09-26 16:00 | NUR ---
NURSE NOTES: Patient turned and repositioned. Oral care provided. Wound dressings dry and intact.
--- NOTE | 2018-09-26 16:52 | Internal Med Progress Note ---
Subjective Date of Service: Sep 26, 2018 Physician Name Juan Dutta Attending Physician Yonathan Mendoza MD Current Medications Medications (Trade) Dose Ordered Sig/Ibrahima Route PRN Reason Start Time Stop Time Status Last Admin Dose Admin Acetaminophen (Tylenol) 650 mg Q4H PRN ORAL Mild Pain (Pain Scale 1-3) 09/22/18 12:47 10/21/18 12:46 09/22/18 20:57 Acetaminophen/ Codeine Phosphate (Tylenol #3) 1 tab Q4H PRN ORAL ModeratePain 09/22/18 13:00 09/28/18 12:51 09/25/18 10:42 Acetaminophen/ Hydrocodone Bitart ([place] 5/325) 1 tab Q4H PRN ORAL moderate pain 09/22/18 12:52 09/28/18 12:51 Albuterol/ Ipratropium (Albuterol/ Ipratropium) 3 ml Q6HRT HHN 09/25/18 13:00 09/30/18 12:59 09/26/18 13:16 Apixaban (Eliquis) 5 mg BID ORAL 09/22/18 18:00 10/19/18 08:59 09/26/18 08:53 Cefepime HCl 1 gm/ Dextrose 55 ml @ 110 mls/hr Q24H IVPB 09/25/18 01:00 10/02/18 00:59 09/26/18 01:14 Colistimethate Sodium (Colistin *inhalation use only*) 150 mg Q12HR@10,22 INH 09/26/18 10:00 10/03/18 09:59 09/26/18 13:16 Dextrose (Dextrose 50%) 25 ml Q30M PRN IV Hypoglycemia 09/22/18 13:00 10/17/18 06:59 Dextrose (Dextrose 50%) 50 ml Q30M PRN IV Hypoglycemia 09/22/18 13:00 10/17/18 06:59 Docusate Sodium (Colace) 100 mg TID ORAL 09/22/18 13:00 10/19/18 08:59 09/26/18 12:54 Folic Acid (Folate) 5 mg DAILY ORAL 09/23/18 09:00 10/18/18 09:59 09/26/18 08:54 Furosemide (Lasix) 40 mg DAILY IV 09/26/18 09:00 10/26/18 08:59 09/26/18 08:54 Lorazepam (Ativan 2mg/ml 1ml) 2 mg Q4H PRN IV For Anxiety 09/22/18 13:00 09/29/18 12:59 09/26/18 01:14 Morphine Sulfate (Morphine Sulfate) 4 mg Q4H PRN IVP Severe pain(7-10) 09/22/18 12:58 09/29/18 12:57 09/23/18 22:13 Ondansetron HCl (Zofran) 4 mg Q6H PRN IVP Nausea & Vomiting 09/22/18 12:49 10/21/18 12:48 Pantoprazole (Protonix) 40 mg DAILY IV 09/23/18 09:00 10/23/18 08:59 09/26/18 08:54 Polyethylene Glycol (Miralax) 17 gm DAILYPRN PRN ORAL Constipation 09/22/18 12:50 10/21/18 12:49 Prednisone (predniSONE) 40 mg DAILY ORAL 09/23/18 09:00 10/20/18 08:59 09/26/18 08:54 Risperidone (RisperDAL) 1 mg BEDTIME ORAL 09/22/18 21:00 10/17/18 20:59 09/25/18 20:16 Thiamine HCl (Vitamin B1) 100 mg DAILY ORAL 09/23/18 09:00 10/20/18 08:59 09/26/18 08:53 Vancomycin HCl (Vanco rx to dose) 1 ea DAILY PRN MISC Per rx protocol 09/25/18 13:15 10/25/18 13:14 Vancomycin HCl 750 mg/Sodium Chloride 275 ml @ 183.333 mls/hr Q24H IVPB 09/26/18 14:00 10/01/18 13:59 09/26/18 14:22 Allergies: Coded Allergies: PIPERACILLIN (Unverified Allergy, Unknown, 05/21/18) tolerates cephalosporins TAZOBACTAM (Unverified Allergy, Unknown, 03/10/18) ROS Limited/Unobtainable: Yes Subjective 77 YO F admitted for respiratory distress. Now left lung opacification. Intubated and sedated. Cover for Int Jose A-DR Mendoza. ICU Objective Last Vital Signs Date Time Temp Pulse Resp B/P (MAP) Pulse Ox O2 Delivery O2 Flow Rate FiO2 09/26/18 16:00 Mechanical Ventilator 09/26/18 15:07 71 22 40 40 09/26/18 13:21 99 09/26/18 09:00 117/43 (67) 09/26/18 08:00 98.5 09/23/18 04:00 Laboratory Tests Test 09/26/18 04:34 09/26/18 10:00 White Blood Count 12.3 K/UL (4.8-10.8) H Red Blood Count 3.61 M/UL (4.20-5.40) L Hemoglobin 9.3 G/DL (12.0-16.0) L Hematocrit 29.4 % (37.0-47.0) L Mean Corpuscular Volume 82 FL (80-99) Mean Corpuscular Hemoglobin 25.8 PG (27.0-31.0) L Mean Corpuscular Hemoglobin Concent 31.7 G/DL (32.0-36.0) L Red Cell Distribution Width 19.8 % (11.6-14.8) H Platelet Count 197 K/UL (150-450) Mean Platelet Volume 7.5 FL (6.5-10.1) Neutrophils (%) (Auto) 79.1 % (45.0-75.0) H Lymphocytes (%) (Auto) 13.9 % (20.0-45.0) L Monocytes (%) (Auto) 5.2 % (1.0-10.0) Eosinophils (%) (Auto) 1.4 % (0.0-3.0) Basophils (%) (Auto) 0.4 % (0.0-2.0) Sodium Level 139 MMOL/L (136-145) Potassium Level 3.5 MMOL/L (3.5-5.1) Chloride Level 103 MMOL/L (98-107) Carbon Dioxide Level 26 MMOL/L (21-32) Anion Gap 10 mmol/L (5-15) Blood Urea Nitrogen 18 mg/dL (7-18) Creatinine 0.6 MG/DL (0.55-1.30) Estimat Glomerular Filtration Rate mL/min (>60) Glucose Level 98 MG/DL (74-106) Uric Acid 3.7 MG/DL (2.6-7.2) Calcium Level 8.4 MG/DL (8.5-10.1) L Phosphorus Level 4.1 MG/DL (2.5-4.9) Magnesium Level 2.1 MG/DL (1.8-2.4) Total Bilirubin 0.5 MG/DL (0.2-1.0) Aspartate Amino Transf (AST/SGOT) 7 U/L (15-37) L Alanine Aminotransferase (ALT/SGPT) 9 U/L (12-78) L Alkaline Phosphatase 40 U/L (46-116) L C-Reactive Protein, Quantitative 7.3 mg/dL (0.00-0.90) H Pro-B-Type Natriuretic Peptide 1885 pg/mL (0-125) H Total Protein 6.1 G/DL (6.4-8.2) L Albumin 2.4 G/DL (3.4-5.0) L Globulin 3.7 g/dL Albumin/Globulin Ratio 0.6 (1.0-2.7) L Arterial Blood pH 7.516 (7.350-7.450) Arterial Blood Partial Pressure CO2 31.5 mmHg (35.0-45.0) L Arterial Blood Partial Pressure O2 66.2 mmHg (75.0-100.0) L Arterial Blood HCO3 24.9 mmol/L (22.0-26.0) Arterial Blood Oxygen Saturation 92.6 % (95-100) L Arterial Blood Base Excess 2.3 (-2-2) H Ian Test Positive Microbiology Date/Time Source Procedure Growth Status 09/24/18 12:25 Blood Blood Culture - Preliminary NO GROWTH AFTER 24 HOURS Resulted 09/24/18 12:15 Blood Blood Culture - Preliminary Resulted 09/24/18 12:00 Urine,Clean Catch Urine Culture - Preliminary Gram Negative Rex Resulted Intake and Output 09/25/18 09/26/18 19:00 07:00 Intake Total 840 ml 865 ml Output Total 1790 ml 400 ml Balance -950 ml 465 ml Free Water 120 ml 150 ml IV Total 55 ml Tube Feeding 660 ml 660 ml Other 60 ml Output Urine Total 1790 ml 400 ml Objective PHYSICAL EXAMINATION: GENERAL: The patient is a well-developed and well-nourished white female, who is in moderate respiratory distress. HEENT: Eyes, pupils are equal and responsive to light and accommodation. Extraocular movements are intact. NECK: Supple without lymphadenopathy. CHEST: Mech vent; Few rales in bilateral bases, otherwise, Lungs are clear to auscultation bilaterally without wheezes CARDIOVASCULAR: Regular rhythm and rate. S1 and S2 normal without murmurs, rubs, or gallops. ABDOMEN: Soft, nontender, and nondistended. Positive bowel sounds. No evidence of hepatosplenomegaly. Currently, no rebound or guarding noted. EXTREMITIES: Negative for clubbing, cyanosis, or edema. RECTAL/GENITAL: Refused. NEUROLOGIC: Cranial nerves II through XII are grossly intact without focal deficits. Motor strength is 5/5 bilaterally. Deep tendon reflexes are 2+ plantar. Assessment/Plan Assessment/Plan ASSESSMENT: This is a 77-year-old white female with: 1. Shortness of breath. 2. Hypoxia. 3. Acute on chronic congestive heart failure. 4. Atrial flutter. 5. Hyponatremia. 6. Chronic obstructive pulmonary disease. 7. Coronary artery disease. 8. Hypertension. 9. Seizure disorder. 10. Paranoid schizophrenia. 11. Intraventricular pacemaker 12. left lung opacification-collapse per CT TREATMENT: 1. Shortness of breath/congestive heart failure. Continue mech vent per pulmonary Dr Sierra. Cardiologyconsultation has been obtained with Dr. Milian. The patient is currently receiving intravenous Lasix. We will follow recommendation of Cardiology. BNP is elevated at over greater than 5000. An echocardiogram is pending. 2. Atrial flutter. Continue Eliquis as above. 3. Hyponatremia. The patient is currently receiving intravenous fluids. 4. Chronic obstructive pulmonary disease. Continue DuoNeb nebulized as above. The patient was initially placed on BiPAP in the emergency room. A Pulmonary consultation has been obtained with Dr. Mendel Sierra. 5. Hypertension. Continue Lasix as above. 6. Seizure disorder. The patient is currently off antiseizure medication. 7. Paranoid schizophrenia. Continue Risperdal as above. Juan Dutta MD Sep 26, 2018 16:52
--- NOTE | 2018-09-26 17:30 | NUR ---
NURSE NOTES: Patient placed on KELECHI overlay mattress.
--- NOTE | 2018-09-26 19:11 | NUR ---
HAND-OFF: Report given to Shruti Deleon RN.
--- NOTE | 2018-09-26 19:12 | NUR ---
NURSE NOTES: Endorsement received from CHARLETTE Barry. Patient opens eyes spontaneously. Orally intubated with ET 7.5, 22 lipline. AC 16, Vt 600, PEEP 5, FiO2 40%. Right nare NGT. Placement rechecked per auscultation. Ongoing feeding Glucerna 1.2 55 ml/hr. No residual noted. López catheter present, draining to urimeter. Bilateral soft wrist restraints present for attempting to pull out tubes. Right wrist g22 heplock. On seizure precautions. head of bed elevated. Bed locked and in low position. Bed alarm on. Call light within reach. On P200 mattress. Sacral dressing dry and intact.
--- NOTE | 2018-09-26 21:00 | NUR ---
NURSE NOTES: Repositioned patient. Secretions suctioned. Small to scant thick secretion noted.
--- NOTE | 2018-09-26 22:00 | NUR ---
NURSE NOTES: Patient restless. Nods head when asked if she has pain. Repositioned for comfort. PRN morphine given.
[2018-09-26] MEDS: Morphine Sulfate 4mg/ml Inj (IV USE ONLY) IVP PRN (22:09)
[2018-09-27] VITALS (24 sets, daily range): BP systolic 104–154; BP diastolic 40–84
--- NOTE | 2018-09-27 | NUR ---
NURSE NOTES: Patient asleep at this time. Tolerating feeding. Appears comfortable.
[2018-09-27] MEDS: Albuterol/Ipratropium 3ml neb HHN SCH ×4 (01:38→19:26)
[2018-09-27] MEDS: Cefepime HCl 1 GM in D5W 55 ML IVPB SCH (01:45)
--- NOTE | 2018-09-27 02:00 | NUR ---
NURSE NOTES: Patient repositioned. Oral care done.
--- NOTE | 2018-09-27 04:00 | NUR ---
NURSE NOTES: Bed bath. Change of linens done
[2018-09-27 05:39] LABS: BASOPHILS % (AUTO) 0.5 % (0.0-2.0); EOSINOPHILS % (AUTO) 1.3 % (0.0-3.0); HEMATOCRIT 29.8 % (37.0-47.0); HEMOGLOBIN 9.4 G/DL (12.0-16.0); LYMPHOCYTES % (AUTO) 19.8 % (20.0-45.0); MEAN CORPUSCULAR VOLUME 81 FL (80-99); MONOCYTES % (AUTO) 8.1 % (1.0-10.0); NEUTROPHILS % (AUTO) 70.3 % (45.0-75.0); PLATELET COUNT 193 K/UL (150-450); RED BLOOD COUNT 3.69 M/UL (4.20-5.40); RED CELL DISTRIBUTION WIDTH 19.8 % (11.6-14.8); WHITE BLOOD COUNT 10.1 K/UL (4.8-10.8)
--- NOTE | 2018-09-27 06:00 | NUR ---
NURSE NOTES: Patient asleep. Vital signs stable
[2018-09-27 06:14] LABS: ALANINE AMINOTRANSFERASE 16 U/L (12-78); ALBUMIN 2.4 G/DL (3.4-5.0); ALBUMIN/GLOBULIN RATIO 0.6 (1.0-2.7); ALKALINE PHOSPHATASE 40 U/L (46-116); ANION GAP 8 mmol/L (5-15); ASPARTATE AMINO TRANSFERASE 9 U/L (15-37); BILIRUBIN,TOTAL 0.5 MG/DL (0.2-1.0); BLOOD UREA NITROGEN 18 mg/dL (7-18); CALCIUM 8.4 MG/DL (8.5-10.1); CARBON DIOXIDE 28 MMOL/L (21-32); CHLORIDE 104 MMOL/L (98-107); CREATININE 0.6 MG/DL (0.55-1.30); POTASSIUM 3.3 MMOL/L (3.5-5.1); SODIUM 140 MMOL/L (136-145)
--- NOTE | 2018-09-27 07:00 | NUR ---
RESPIRATORY: Received Patient on Vent settings ACVC RR 16, VT 600, FIO2 40%, PEEP +0. Patient intubated with a 7.5 ETT at 22cm at the lip, secured with anchorfast. Breath sounds are diminished bilaterally. Patient is currently anxious, alert, and awake. SXN thick white secretions as needed. Vent plugged into red outlet. Alarms on and audible. Will continue to monitor throughout the day.
--- NOTE | 2018-09-27 07:30 | NUR ---
NURSE NOTES: Received report from Shruti Deleon RN. Patient asleep in bed, opens eyes spontaneously, confused. ET 7.5, 22 at lip line hooked to vent with settings of AC 16, TV 600, FiO2 40%, PEEP 5, saturating at 95%. Right nare NGT in place with feeding of Glucerna 1.2 running at 55 cc/hr, no residual noted, HoB elevated. López catheter patent and draining well. Left forearm 22g saline lock patent and asymptomatic. Bilateral wrist restraints in place, peripheral pulses present, skin intact. Bed locked in lowest position with padded side rails up x 3. All needs attended to. Call light within reach. Will continue to monitor.
--- NOTE | 2018-09-27 07:39 | NUR ---
HAND-OFF: Report given to CHARLETTE Barry.
--- NOTE | 2018-09-27 07:47 | General Progress Note ---
Assessment/Plan Problem List: (1) COPD (chronic obstructive pulmonary disease) ICD Codes: J44.9 - Chronic obstructive pulmonary disease, unspecified SNOMED: 41867055 Qualifiers: Qualified Codes: J44.9 - Chronic obstructive pulmonary disease, unspecified (2) Hyponatremia ICD Codes: E87.1 - Hyponatremia SNOMED: 62696030 (3) HTN (hypertension) ICD Codes: I10 - Hypertension SNOMED: 90300321 Assessment/Plan: remained intubated on Prednisone 40 mg daily no evidence of adrenal insufficiency or hypothyroidism continue excellent ICU care Subjective ROS Limited/Unobtainable: Yes Allergies: Coded Allergies: PIPERACILLIN (Unverified Allergy, Unknown, 05/21/18) tolerates cephalosporins TAZOBACTAM (Unverified Allergy, Unknown, 03/10/18) Subjective events noted she remained intubated in ICU on TF Objective Last 24 Hour Vital Signs Date Time Temp Pulse Resp B/P (MAP) Pulse Ox O2 Delivery O2 Flow Rate FiO2 09/27/18 06:43 65 16 Mechanical Ventilator 60.0 40 09/27/18 06:42 63 16 100 Mechanical Ventilator 40 09/27/18 06:40 65 20 40 40 09/27/18 06:35 65 21 100 Mechanical Ventilator 40 09/27/18 06:00 67 17 119/40 (66) 99 09/27/18 05:07 65 17 40 40 09/27/18 05:00 62 17 124/81 (95) 99 09/27/18 04:00 97.8 56 18 135/45 (75) 99 09/27/18 04:00 40 09/27/18 04:00 Mechanical Ventilator 09/27/18 04:00 60 09/27/18 03:22 60 17 40 40 09/27/18 03:00 62 16 122/40 (67) 99 09/27/18 02:00 65 17 130/43 (72) 99 09/27/18 01:48 75 20 100 Mechanical Ventilator 40 09/27/18 01:38 65 16 40 40 09/27/18 01:38 65 17 100 Mechanical Ventilator 40 09/27/18 01:00 65 16 126/62 (83) 100 09/27/18 00:00 Mechanical Ventilator 09/27/18 00:00 62 09/27/18 00:00 98.0 63 16 131/53 (79) 95 09/27/18 00:00 40 09/26/18 23:37 98.5 09/26/18 23:08 72 18 100 Mechanical Ventilator 40 09/26/18 23:00 65 17 131/53 (79) 98 09/26/18 22:56 62 16 40 40 09/26/18 22:56 62 16 99 Mechanical Ventilator 40 09/26/18 22:00 62 16 136/49 (78) 98 09/26/18 21:04 78 19 40 40 09/26/18 21:00 66 16 120/50 (73) 99 09/26/18 20:00 65 09/26/18 20:00 98.1 69 17 137/50 (79) 100 09/26/18 20:00 Mechanical Ventilator 09/26/18 20:00 40 09/26/18 19:23 72 18 100 Mechanical Ventilator 40 09/26/18 19:12 72 17 100 Mechanical Ventilator 40 09/26/18 19:12 69 20 40 40 09/26/18 19:00 64 16 135/41 (72) 99 09/26/18 18:00 64 16 108/40 (62) 96 09/26/18 17:27 69 16 40 40 09/26/18 17:00 65 16 115/41 (65) 95 09/26/18 16:00 69 09/26/18 16:00 98.5 76 18 118/48 (71) 97 09/26/18 16:00 Mechanical Ventilator 09/26/18 16:00 40 09/26/18 15:48 69 09/26/18 15:07 71 22 40 40 09/26/18 15:00 76 21 130/82 (98) 100 09/26/18 14:00 63 16 157/56 (89) 100 09/26/18 13:21 70 16 99 Mechanical Ventilator 40 09/26/18 13:11 67 16 40 40 09/26/18 13:11 67 16 96 Mechanical Ventilator 40 09/26/18 13:00 71 16 101/40 (60) 99 09/26/18 12:00 40 09/26/18 12:00 98.3 71 17 120/57 (78) 99 09/26/18 12:00 Mechanical Ventilator 09/26/18 11:55 72 09/26/18 11:28 67 16 40 40 09/26/18 11:00 71 16 108/49 (68) 97 09/26/18 10:00 75 21 128/50 (76) 95 09/26/18 09:00 73 17 117/43 (67) 95 09/26/18 08:37 63 16 30 40 09/26/18 08:10 63 16 100 Mechanical Ventilator 30 09/26/18 08:00 98.5 61 16 105/37 (59) 96 09/26/18 08:00 64 16 97 Mechanical Ventilator 30 09/26/18 08:00 30 09/26/18 08:00 Mechanical Ventilator Intake and Output 09/26/18 09/27/18 19:00 07:00 Intake Total 1115.000 ml 750 ml Output Total 1935 ml 440 ml Balance -820.000 ml 310 ml Free Water 90 ml IV Total 275.000 ml 55 ml Tube Feeding 660 ml 605 ml Other 180 ml Output Urine Total 1935 ml 440 ml Laboratory Tests 09/26/18 10:00: Arterial Blood pH 7.516H, Arterial Blood Partial Pressure CO2 31.5L, Arterial Blood Partial Pressure O2 66.2L, Arterial Blood HCO3 24.9, Arterial Blood Oxygen Saturation 92.6L, Arterial Blood Base Excess 2.3H, Ian Test Positive 09/27/18 04:43: White Blood Count 10.1, Red Blood Count 3.69L, Hemoglobin 9.4L, Hematocrit 29.8L , Mean Corpuscular Volume 81, Mean Corpuscular Hemoglobin 25.6L, Mean Corpuscular Hemoglobin Concent 31.7L, Red Cell Distribution Width 19.8H, Platelet Count 193, Mean Platelet Volume 7.6, Neutrophils (%) (Auto) 70.3, Lymphocytes (%) (Auto) 19.8L, Monocytes (%) (Auto) 8.1, Eosinophils (%) (Auto) 1.3, Basophils (%) (Auto) 0.5, Sodium Level 140, Potassium Level 3.3L, Chloride Level 104, Carbon Dioxide Level 28, Anion Gap 8, Blood Urea Nitrogen 18, Creatinine 0.6, Estimat Glomerular Filtration Rate , Glucose Level 95, Calcium Level 8.4L, Total Bilirubin 0.5, Aspartate Amino Transf (AST/SGOT) 9L, Alanine Aminotransferase (ALT/SGPT) 16, Alkaline Phosphatase 40L, Pro-B-Type Natriuretic Peptide 3106H, Total Protein 6.1L, Albumin 2.4L, Globulin 3.7, Albumin/Globulin Ratio 0.6L Height (Feet): 5 Weight (Pounds): 174 General Appearance: moderate distress Neck: normal alignment Cardiovascular: normal rate Respiratory/Chest: decreased breath sounds Abdomen: normal bowel sounds Objective Current Medications Medications (Trade) Dose Ordered Sig/Ibrahima Route PRN Reason Start Time Stop Time Status Last Admin Dose Admin Acetaminophen (Tylenol) 650 mg Q4H PRN ORAL Mild Pain (Pain Scale 1-3) 09/22/18 12:47 10/21/18 12:46 09/22/18 20:57 Acetaminophen/ Codeine Phosphate (Tylenol #3) 1 tab Q4H PRN ORAL ModeratePain 09/22/18 13:00 09/28/18 12:51 09/25/18 10:42 Acetaminophen/ Hydrocodone Bitart ([place] 5/325) 1 tab Q4H PRN ORAL moderate pain 09/22/18 12:52 09/28/18 12:51 Albuterol/ Ipratropium (Albuterol/ Ipratropium) 3 ml Q6HRT HHN 09/25/18 13:00 09/30/18 12:59 09/27/18 06:44 Apixaban (Eliquis) 5 mg BID ORAL 09/22/18 18:00 10/19/18 08:59 09/26/18 17:59 Cefepime HCl 1 gm/ Dextrose 55 ml @ 110 mls/hr Q24H IVPB 09/25/18 01:00 10/02/18 00:59 09/27/18 01:45 Colistimethate Sodium (Colistin *inhalation use only*) 150 mg Q12HR@10,22 INH 09/26/18 10:00 10/03/18 09:59 09/26/18 22:56 Dextrose (Dextrose 50%) 25 ml Q30M PRN IV Hypoglycemia 09/22/18 13:00 10/17/18 06:59 Dextrose (Dextrose 50%) 50 ml Q30M PRN IV Hypoglycemia 09/22/18 13:00 10/17/18 06:59 Docusate Sodium (Colace) 100 mg TID ORAL 09/22/18 13:00 10/19/18 08:59 09/26/18 17:59 Folic Acid (Folate) 5 mg DAILY ORAL 09/23/18 09:00 10/18/18 09:59 09/26/18 08:54 Furosemide (Lasix) 40 mg DAILY IV 09/26/18 09:00 10/26/18 08:59 09/26/18 08:54 Lorazepam (Ativan 2mg/ml 1ml) 2 mg Q4H PRN IV For Anxiety 09/22/18 13:00 09/29/18 12:59 09/26/18 01:14 Morphine Sulfate (Morphine Sulfate) 4 mg Q4H PRN IVP Severe pain(7-10) 09/22/18 12:58 09/29/18 12:57 09/26/18 22:09 Ondansetron HCl (Zofran) 4 mg Q6H PRN IVP Nausea & Vomiting 09/22/18 12:49 10/21/18 12:48 Pantoprazole (Protonix) 40 mg DAILY IV 09/23/18 09:00 10/23/18 08:59 09/26/18 08:54 Polyethylene Glycol (Miralax) 17 gm DAILYPRN PRN ORAL Constipation 09/22/18 12:50 10/21/18 12:49 Prednisone (predniSONE) 40 mg DAILY ORAL 09/23/18 09:00 10/20/18 08:59 09/26/18 08:54 Risperidone (RisperDAL) 1 mg BEDTIME ORAL 09/22/18 21:00 10/17/18 20:59 09/26/18 21:16 Thiamine HCl (Vitamin B1) 100 mg DAILY ORAL 09/23/18 09:00 10/20/18 08:59 09/26/18 08:53 Vancomycin HCl (Vanco rx to dose) 1 ea DAILY PRN MISC Per rx protocol 09/25/18 13:15 10/25/18 13:14 Vancomycin HCl 750 mg/Sodium Chloride 275 ml @ 183.333 mls/hr Q24H IVPB 09/26/18 14:00 10/01/18 13:59 09/26/18 14:22 Daniel Little MD Sep 27, 2018 07:47
[2018-09-27] MEDS ORDERED: NS 275ml ONE (08:46)
--- NOTE | 2018-09-27 08:57 | NUR ---
Weaning started. Weaning criteria passed. Placed patient on PS+8 PEEP +5 FIO2 40%. Will continue to monitor.
[2018-09-27] MEDS: Pantoprazole Inj IV SCH (09:07)
[2018-09-27] MEDS: Thiamine 100mg tab ORAL SCH (09:08)
[2018-09-27] MEDS: Eliquis 2.5mg tablet ORAL SCH ×2 (09:08→18:00)
[2018-09-27] MEDS: Docusate 100mg/10ml Liq ORAL SCH ×3 (09:09→18:03)
--- NOTE | 2018-09-27 09:25 | NUR ---
Weaning stopped. Patient lasted on Spontaneous Breathing Trial (SBT) for 28 minutes. Patient WOB decreased VT <200mL and Rate increased to >35BPM. Placed back onto previous settings. Will continue to monitor.
--- NOTE | 2018-09-27 09:25 | NUR ---
NURSE NOTES: Patient weaned from vent and lasted for 28 min. Increased work of breath noted and placed back on settings of AC 16, TV 600, FiO2 40%, PEEP 5. Will continue to monitor.
[2018-09-27] MEDS: Colistin for inhalation INH SCH ×2 (09:52→21:31)
--- NOTE | 2018-09-27 10:08 | Diagnostic Imaging Report ---
EXAM: XR Chest, 1 View CLINICAL HISTORY: DYSPNEA TECHNIQUE: Frontal view of the chest. COMPARISON: Chest x-rays dated 09/26/18 FINDINGS: Lungs: Persistent mildly increased interstitial markings without focal consolidation. Pleural space: Small left pleural effusion, which appears improved compared to the prior exam. Heart: Unremarkable. No cardiomegaly. Mediastinum: Unremarkable. Bones/joints: Unremarkable. Vasculature: Atherosclerotic calcifications are noted within the aortic arch. Tubes, lines and devices: Stable positioning of the endotracheal tube. NG tube extends below the diaphragm and its tip is not visualized. Telemetry leads overlie the thorax. IMPRESSION: Interval mild improvement of the left pleural effusion.
[2018-09-27] MEDS: Morphine Sulfate 4mg/ml Inj (IV USE ONLY) IVP PRN ×2 (11:01→17:13)
--- NOTE | 2018-09-27 11:31 | NUR ---
NURSE NOTES: Patient c/o left thigh pain 8/10. PRN morphine IVP given and was effective. Patient is now asleep and comfortable.
--- NOTE | 2018-09-27 11:46 | Cardiology Progress Note ---
Assessment/Plan Assessment/Plan 1. Bronchospasm. 2. Possible left-sided infiltrate or pneumonia. 3. Diastolic heart failure history. 4. Permanent atrial fibrillation. 5. lung collapse 6. hs of pacer in icu thomas vent f lung col,lapswe resolved vr seem fine bp is fien at time tiem pulm toilette abx on eliquis failed to wean on lasix watch bicarb Subjective ROS Limited/Unobtainable: Yes Subjective intubated on the vent ASKING FOR TUBES TO BE REMOVED Objective Last 24 Hour Vital Signs Date Time Temp Pulse Resp B/P (MAP) Pulse Ox O2 Delivery O2 Flow Rate FiO2 09/27/18 11:31 98.5 09/27/18 11:22 60 16 40 09/27/18 09:54 62 16 100 Mechanical Ventilator 40 09/27/18 09:43 70 23 99 Mechanical Ventilator 40 09/27/18 09:43 40 09/27/18 09:28 100 09/27/18 09:25 68 36 40 40 09/27/18 09:00 65 19 104/84 (91) 100 09/27/18 08:57 63 18 40 40 09/27/18 08:00 98.5 64 16 120/45 (70) 95 09/27/18 07:00 69 16 117/44 (68) 96 09/27/18 06:43 65 16 Mechanical Ventilator 60.0 40 09/27/18 06:42 63 16 100 Mechanical Ventilator 40 09/27/18 06:40 65 20 40 40 09/27/18 06:35 65 21 100 Mechanical Ventilator 40 09/27/18 06:00 67 17 119/40 (66) 99 09/27/18 05:07 65 17 40 40 09/27/18 05:00 62 17 124/81 (95) 99 09/27/18 04:00 97.8 56 18 135/45 (75) 99 09/27/18 04:00 40 09/27/18 04:00 Mechanical Ventilator 09/27/18 04:00 60 09/27/18 03:22 60 17 40 40 09/27/18 03:00 62 16 122/40 (67) 99 09/27/18 02:00 65 17 130/43 (72) 99 09/27/18 01:48 75 20 100 Mechanical Ventilator 40 09/27/18 01:38 65 16 40 40 09/27/18 01:38 65 17 100 Mechanical Ventilator 40 09/27/18 01:00 65 16 126/62 (83) 100 09/27/18 00:00 Mechanical Ventilator 09/27/18 00:00 62 09/27/18 00:00 98.0 63 16 131/53 (79) 95 09/27/18 00:00 40 09/26/18 23:08 72 18 100 Mechanical Ventilator 40 09/26/18 23:00 65 17 131/53 (79) 98 09/26/18 22:56 62 16 40 40 09/26/18 22:56 62 16 99 Mechanical Ventilator 40 09/26/18 22:00 62 16 136/49 (78) 98 09/26/18 21:04 78 19 40 40 09/26/18 21:00 66 16 120/50 (73) 99 09/26/18 20:00 65 09/26/18 20:00 98.1 69 17 137/50 (79) 100 09/26/18 20:00 Mechanical Ventilator 09/26/18 20:00 40 09/26/18 19:23 72 18 100 Mechanical Ventilator 40 09/26/18 19:12 72 17 100 Mechanical Ventilator 40 09/26/18 19:12 69 20 40 40 09/26/18 19:00 64 16 135/41 (72) 99 09/26/18 18:00 64 16 108/40 (62) 96 09/26/18 17:27 69 16 40 40 09/26/18 17:00 65 16 115/41 (65) 95 09/26/18 16:00 69 09/26/18 16:00 98.5 76 18 118/48 (71) 97 09/26/18 16:00 Mechanical Ventilator 09/26/18 16:00 40 09/26/18 15:48 69 09/26/18 15:07 71 22 40 40 09/26/18 15:00 76 21 130/82 (98) 100 09/26/18 14:00 63 16 157/56 (89) 100 09/26/18 13:21 70 16 99 Mechanical Ventilator 40 09/26/18 13:11 67 16 40 40 09/26/18 13:11 67 16 96 Mechanical Ventilator 40 09/26/18 13:00 71 16 101/40 (60) 99 09/26/18 12:00 40 09/26/18 12:00 98.3 71 17 120/57 (78) 99 09/26/18 12:00 Mechanical Ventilator 09/26/18 11:55 72 General Appearance: no apparent distress, alert Neck: supple Cardiovascular: irregularly irregular Respiratory/Chest: lungs clear Abdomen: normal bowel sounds, non tender, soft Extremities: no swelling Intake and Output 09/26/18 09/27/18 19:00 07:00 Intake Total 1115.000 ml 750 ml Output Total 1935 ml 440 ml Balance -820.000 ml 310 ml Free Water 90 ml IV Total 275.000 ml 55 ml Tube Feeding 660 ml 605 ml Other 180 ml Output Urine Total 1935 ml 440 ml Laboratory Tests Test 09/27/18 04:43 White Blood Count 10.1 K/UL (4.8-10.8) Red Blood Count 3.69 M/UL (4.20-5.40) L Hemoglobin 9.4 G/DL (12.0-16.0) L Hematocrit 29.8 % (37.0-47.0) L Mean Corpuscular Volume 81 FL (80-99) Mean Corpuscular Hemoglobin 25.6 PG (27.0-31.0) L Mean Corpuscular Hemoglobin Concent 31.7 G/DL (32.0-36.0) L Red Cell Distribution Width 19.8 % (11.6-14.8) H Platelet Count 193 K/UL (150-450) Mean Platelet Volume 7.6 FL (6.5-10.1) Neutrophils (%) (Auto) 70.3 % (45.0-75.0) Lymphocytes (%) (Auto) 19.8 % (20.0-45.0) L Monocytes (%) (Auto) 8.1 % (1.0-10.0) Eosinophils (%) (Auto) 1.3 % (0.0-3.0) Basophils (%) (Auto) 0.5 % (0.0-2.0) Sodium Level 140 MMOL/L (136-145) Potassium Level 3.3 MMOL/L (3.5-5.1) L Chloride Level 104 MMOL/L (98-107) Carbon Dioxide Level 28 MMOL/L (21-32) Anion Gap 8 mmol/L (5-15) Blood Urea Nitrogen 18 mg/dL (7-18) Creatinine 0.6 MG/DL (0.55-1.30) Estimat Glomerular Filtration Rate mL/min (>60) Glucose Level 95 MG/DL (74-106) Calcium Level 8.4 MG/DL (8.5-10.1) L Total Bilirubin 0.5 MG/DL (0.2-1.0) Aspartate Amino Transf (AST/SGOT) 9 U/L (15-37) L Alanine Aminotransferase (ALT/SGPT) 16 U/L (12-78) Alkaline Phosphatase 40 U/L (46-116) L Pro-B-Type Natriuretic Peptide 3106 pg/mL (0-125) H Total Protein 6.1 G/DL (6.4-8.2) L Albumin 2.4 G/DL (3.4-5.0) L Globulin 3.7 g/dL Albumin/Globulin Ratio 0.6 (1.0-2.7) L Microbiology Date/Time Source Procedure Growth Status 09/24/18 12:25 Blood Blood Culture - Preliminary NO GROWTH AFTER 48 HOURS Resulted 09/24/18 12:15 Blood Blood Culture - Preliminary Staphylococcus Sp Coag Neg Resulted 09/24/18 12:00 Urine,Clean Catch Urine Culture - Final Escherichia Coli Complete Akbar Reno MD Sep 27, 2018 11:46
[2018-09-27 12:08] LABS: PHOSPHORUS 3.6 MG/DL (2.5-4.9)
--- NOTE | 2018-09-27 12:48 | Nephrology Progress Note ---
Assessment/Plan Problem List: (1) Respiratory failure, acute (2) Hyponatremia (3) Seizure disorder (4) Acute diastolic CHF (congestive heart failure) (5) COPD (chronic obstructive pulmonary disease) (6) Pacemaker Assessment HypoNatremia ? Etiology: depletional / Diuretics / SIADH ... bronchoscopy for left lung collapse Acute respiratory failure on BIPAP- COPD Encephalopathy due to high CO2 Pacemaker UTI Low MCV Anemia Hypoalbuminemia EjFx 55% last admission h/o Atfib Plan K supplement taper steroid intubated Off Diamox for now López PRN lasix IV iron monitor lytes Anemia clinton per orders Subjective ROS Limited/Unobtainable: Yes Objective Objective Last 24 Hour Vital Signs Date Time Temp Pulse Resp B/P (MAP) Pulse Ox O2 Delivery O2 Flow Rate FiO2 09/27/18 12:00 98.5 62 16 136/52 (80) 100 09/27/18 12:00 Mechanical Ventilator 09/27/18 12:00 40 09/27/18 11:47 64 09/27/18 11:31 98.5 09/27/18 11:22 60 16 40 09/27/18 11:00 68 18 129/71 (90) 100 09/27/18 10:00 64 16 114/66 (82) 100 09/27/18 09:54 62 16 100 Mechanical Ventilator 40 09/27/18 09:43 70 23 99 Mechanical Ventilator 40 09/27/18 09:43 40 09/27/18 09:28 100 09/27/18 09:25 68 36 40 40 09/27/18 09:00 65 19 104/84 (91) 100 09/27/18 08:57 63 18 40 40 09/27/18 08:20 66 09/27/18 08:00 40 09/27/18 08:00 Mechanical Ventilator 09/27/18 08:00 98.5 64 16 120/45 (70) 95 09/27/18 07:00 69 16 117/44 (68) 96 09/27/18 06:43 65 16 Mechanical Ventilator 60.0 40 09/27/18 06:42 63 16 100 Mechanical Ventilator 40 09/27/18 06:40 65 20 40 40 09/27/18 06:35 65 21 100 Mechanical Ventilator 40 09/27/18 06:00 67 17 119/40 (66) 99 09/27/18 05:07 65 17 40 40 09/27/18 05:00 62 17 124/81 (95) 99 09/27/18 04:00 97.8 56 18 135/45 (75) 99 09/27/18 04:00 40 09/27/18 04:00 Mechanical Ventilator 09/27/18 04:00 60 09/27/18 03:22 60 17 40 40 09/27/18 03:00 62 16 122/40 (67) 99 09/27/18 02:00 65 17 130/43 (72) 99 09/27/18 01:48 75 20 100 Mechanical Ventilator 40 09/27/18 01:38 65 16 40 40 09/27/18 01:38 65 17 100 Mechanical Ventilator 40 09/27/18 01:00 65 16 126/62 (83) 100 09/27/18 00:00 Mechanical Ventilator 09/27/18 00:00 62 09/27/18 00:00 98.0 63 16 131/53 (79) 95 09/27/18 00:00 40 09/26/18 23:08 72 18 100 Mechanical Ventilator 40 09/26/18 23:00 65 17 131/53 (79) 98 09/26/18 22:56 62 16 40 40 09/26/18 22:56 62 16 99 Mechanical Ventilator 40 09/26/18 22:00 62 16 136/49 (78) 98 09/26/18 21:04 78 19 40 40 09/26/18 21:00 66 16 120/50 (73) 99 09/26/18 20:00 65 09/26/18 20:00 98.1 69 17 137/50 (79) 100 09/26/18 20:00 Mechanical Ventilator 09/26/18 20:00 40 09/26/18 19:23 72 18 100 Mechanical Ventilator 40 09/26/18 19:12 72 17 100 Mechanical Ventilator 40 09/26/18 19:12 69 20 40 40 09/26/18 19:00 64 16 135/41 (72) 99 09/26/18 18:00 64 16 108/40 (62) 96 09/26/18 17:27 69 16 40 40 09/26/18 17:00 65 16 115/41 (65) 95 09/26/18 16:00 69 09/26/18 16:00 98.5 76 18 118/48 (71) 97 09/26/18 16:00 Mechanical Ventilator 09/26/18 16:00 40 09/26/18 15:48 69 09/26/18 15:07 71 22 40 40 09/26/18 15:00 76 21 130/82 (98) 100 09/26/18 14:00 63 16 157/56 (89) 100 09/26/18 13:21 70 16 99 Mechanical Ventilator 40 09/26/18 13:11 67 16 40 40 09/26/18 13:11 67 16 96 Mechanical Ventilator 40 09/26/18 13:00 71 16 101/40 (60) 99 Intake and Output 09/26/18 09/27/18 19:00 07:00 Intake Total 1115.000 ml 805 ml Output Total 1935 ml 470 ml Balance -820.000 ml 335 ml Free Water 90 ml IV Total 275.000 ml 55 ml Tube Feeding 660 ml 660 ml Other 180 ml Output Urine Total 1935 ml 470 ml Laboratory Tests 09/27/18 04:43: White Blood Count 10.1, Red Blood Count 3.69L, Hemoglobin 9.4L, Hematocrit 29.8L , Mean Corpuscular Volume 81, Mean Corpuscular Hemoglobin 25.6L, Mean Corpuscular Hemoglobin Concent 31.7L, Red Cell Distribution Width 19.8H, Platelet Count 193, Mean Platelet Volume 7.6, Neutrophils (%) (Auto) 70.3, Lymphocytes (%) (Auto) 19.8L, Monocytes (%) (Auto) 8.1, Eosinophils (%) (Auto) 1.3, Basophils (%) (Auto) 0.5, Sodium Level 140, Potassium Level 3.3L, Chloride Level 104, Carbon Dioxide Level 28, Anion Gap 8, Blood Urea Nitrogen 18, Creatinine 0.6, Estimat Glomerular Filtration Rate , Glucose Level 95, Calcium Level 8.4L, Phosphorus Level 3.6, Magnesium Level 2.1, Total Bilirubin 0.5, Aspartate Amino Transf (AST/SGOT) 9L, Alanine Aminotransferase (ALT/SGPT) 16, Alkaline Phosphatase 40L, Pro-B-Type Natriuretic Peptide 3106H, Total Protein 6.1L, Albumin 2.4L, Globulin 3.7, Albumin/Globulin Ratio 0.6L Height (Feet): 5 Weight (Pounds): 174 General Appearance: mild distress EENT: other - vented Cardiovascular: normal rate Respiratory/Chest: decreased breath sounds Abdomen: distended Objective no change Danilo Huber MD Sep 27, 2018 12:48
--- NOTE | 2018-09-27 12:51 | NUR ---
NURSE NOTES: Patient seen and evaluated by Dr. Sierra at bedside. No new orders received at this time.
--- NOTE | 2018-09-27 13:53 | NUR ---
NURSE NOTES: Patient seen and evaluated by Dr. Milian at bedside. No new orders received at this time. VSS.
--- NOTE | 2018-09-27 13:53 | Cardiac Electrophysiology PN ---
Assessment/Plan Assessment/Plan 1. 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 Chronic atrial fibrillation. Rate controlled off any antiarrhythmics. On Eliquis 5 mg bid. Hold if needs tracheostomy 3. Severe COPD. On Solu-Medrol. 4. Diastolic congestive heart failure. 5. Diabetes. 6. Left lung collapse. Intubated on the vent. DYLAN RN Subjective Subjective In ICU intubated on the vent in atrial fib. Tolerated 3 minutes of weaning and CXR better Objective Last 24 Hour Vital Signs Date Time Temp Pulse Resp B/P (MAP) Pulse Ox O2 Delivery O2 Flow Rate FiO2 09/27/18 13:27 63 16 100 Mechanical Ventilator 40 09/27/18 13:20 61 16 100 Mechanical Ventilator 40 09/27/18 13:20 66 16 40 09/27/18 12:00 98.5 62 16 136/52 (80) 100 09/27/18 12:00 Mechanical Ventilator 09/27/18 12:00 40 09/27/18 11:47 64 09/27/18 11:31 98.5 09/27/18 11:22 60 16 40 09/27/18 11:00 68 18 129/71 (90) 100 09/27/18 10:00 64 16 114/66 (82) 100 09/27/18 09:54 62 16 100 Mechanical Ventilator 40 09/27/18 09:43 70 23 99 Mechanical Ventilator 40 09/27/18 09:43 40 09/27/18 09:28 100 09/27/18 09:25 68 36 40 40 09/27/18 09:00 65 19 104/84 (91) 100 09/27/18 08:57 63 18 40 40 09/27/18 08:00 40 09/27/18 08:00 Mechanical Ventilator 09/27/18 08:00 98.5 64 16 120/45 (70) 95 09/27/18 07:53 66 09/27/18 07:00 69 16 117/44 (68) 96 09/27/18 06:43 65 16 Mechanical Ventilator 60.0 40 09/27/18 06:42 63 16 100 Mechanical Ventilator 40 09/27/18 06:40 65 20 40 40 09/27/18 06:35 65 21 100 Mechanical Ventilator 40 09/27/18 06:00 67 17 119/40 (66) 99 09/27/18 05:07 65 17 40 40 09/27/18 05:00 62 17 124/81 (95) 99 09/27/18 04:00 97.8 56 18 135/45 (75) 99 09/27/18 04:00 40 09/27/18 04:00 Mechanical Ventilator 09/27/18 04:00 60 09/27/18 03:22 60 17 40 40 09/27/18 03:00 62 16 122/40 (67) 99 09/27/18 02:00 65 17 130/43 (72) 99 09/27/18 01:48 75 20 100 Mechanical Ventilator 40 09/27/18 01:38 65 16 40 40 09/27/18 01:38 65 17 100 Mechanical Ventilator 40 09/27/18 01:00 65 16 126/62 (83) 100 09/27/18 00:00 Mechanical Ventilator 09/27/18 00:00 62 09/27/18 00:00 98.0 63 16 131/53 (79) 95 09/27/18 00:00 40 09/26/18 23:08 72 18 100 Mechanical Ventilator 40 09/26/18 23:00 65 17 131/53 (79) 98 09/26/18 22:56 62 16 40 40 09/26/18 22:56 62 16 99 Mechanical Ventilator 40 09/26/18 22:00 62 16 136/49 (78) 98 09/26/18 21:04 78 19 40 40 09/26/18 21:00 66 16 120/50 (73) 99 09/26/18 20:00 65 09/26/18 20:00 98.1 69 17 137/50 (79) 100 09/26/18 20:00 Mechanical Ventilator 09/26/18 20:00 40 09/26/18 19:23 72 18 100 Mechanical Ventilator 40 09/26/18 19:12 72 17 100 Mechanical Ventilator 40 09/26/18 19:12 69 20 40 40 09/26/18 19:00 64 16 135/41 (72) 99 09/26/18 18:00 64 16 108/40 (62) 96 09/26/18 17:27 69 16 40 40 09/26/18 17:00 65 16 115/41 (65) 95 09/26/18 16:00 69 09/26/18 16:00 98.5 76 18 118/48 (71) 97 09/26/18 16:00 Mechanical Ventilator 09/26/18 16:00 40 09/26/18 15:48 69 09/26/18 15:07 71 22 40 40 09/26/18 15:00 76 21 130/82 (98) 100 09/26/18 14:00 63 16 157/56 (89) 100 Intake and Output 09/26/18 09/27/18 19:00 07:00 Intake Total 1115.000 ml 805 ml Output Total 1935 ml 470 ml Balance -820.000 ml 335 ml Free Water 90 ml IV Total 275.000 ml 55 ml Tube Feeding 660 ml 660 ml Other 180 ml Output Urine Total 1935 ml 470 ml Laboratory Tests Test 09/27/18 04:43 White Blood Count 10.1 K/UL (4.8-10.8) Red Blood Count 3.69 M/UL (4.20-5.40) L Hemoglobin 9.4 G/DL (12.0-16.0) L Hematocrit 29.8 % (37.0-47.0) L Mean Corpuscular Volume 81 FL (80-99) Mean Corpuscular Hemoglobin 25.6 PG (27.0-31.0) L Mean Corpuscular Hemoglobin Concent 31.7 G/DL (32.0-36.0) L Red Cell Distribution Width 19.8 % (11.6-14.8) H Platelet Count 193 K/UL (150-450) Mean Platelet Volume 7.6 FL (6.5-10.1) Neutrophils (%) (Auto) 70.3 % (45.0-75.0) Lymphocytes (%) (Auto) 19.8 % (20.0-45.0) L Monocytes (%) (Auto) 8.1 % (1.0-10.0) Eosinophils (%) (Auto) 1.3 % (0.0-3.0) Basophils (%) (Auto) 0.5 % (0.0-2.0) Sodium Level 140 MMOL/L (136-145) Potassium Level 3.3 MMOL/L (3.5-5.1) L Chloride Level 104 MMOL/L (98-107) Carbon Dioxide Level 28 MMOL/L (21-32) Anion Gap 8 mmol/L (5-15) Blood Urea Nitrogen 18 mg/dL (7-18) Creatinine 0.6 MG/DL (0.55-1.30) Estimat Glomerular Filtration Rate mL/min (>60) Glucose Level 95 MG/DL (74-106) Calcium Level 8.4 MG/DL (8.5-10.1) L Phosphorus Level 3.6 MG/DL (2.5-4.9) Magnesium Level 2.1 MG/DL (1.8-2.4) Total Bilirubin 0.5 MG/DL (0.2-1.0) Aspartate Amino Transf (AST/SGOT) 9 U/L (15-37) L Alanine Aminotransferase (ALT/SGPT) 16 U/L (12-78) Alkaline Phosphatase 40 U/L (46-116) L Pro-B-Type Natriuretic Peptide 3106 pg/mL (0-125) H Total Protein 6.1 G/DL (6.4-8.2) L Albumin 2.4 G/DL (3.4-5.0) L Globulin 3.7 g/dL Albumin/Globulin Ratio 0.6 (1.0-2.7) L Objective HEAD AND NECK: Mild JVD. LUNGS: Coarse rhonchi bilaterally. Decrease breath sounds on the left CARDIOVASCULAR: Irregular S1 and S2 with no gallop. ABDOMEN: Soft. EXTREMITIES: No pitting edema. Yohan Milian MD Sep 27, 2018 13:53
[2018-09-27] MEDS: Vancomycin 750mg/NS 275ml IVPB SCH ×2 (14:03)
--- NOTE | 2018-09-27 14:58 | Pulmonolgy Critical Care Note ---
Critical Care - Asmt/Plan Problems: (1) Respiratory failure, acute (2) Collapse of left lung Assessment & Plan: resolved (3) Atrial fibrillation with RVR (4) Hyponatremia (5) COPD (chronic obstructive pulmonary disease) (6) Anemia, chronic disease Respiratory: monitor respiratory rate, adjust FIO2, CXR Cardiac: continue to monitor HR/BP Renal: F/U I&O, check electrolytes Infectious Disease: check cultures, continue antibiotics Gastrointestinal: continue feedings/current rate Endocrine: monitor blood sugar Hematologic: monitor H/H, transfuse if hgb<8.5 Neurologic: PRN Morphine, keep patient comfortable Affect: PRN ativan Disposition: keep in ICU Time Spent (Minutes): 40 Notes Reviewed: renal Discussed with: nurses, consultants, field case managercall manager - Objective Last 24 Hour Vital Signs Date Time Temp Pulse Resp B/P (MAP) Pulse Ox O2 Delivery O2 Flow Rate FiO2 09/27/18 13:27 63 16 100 Mechanical Ventilator 40 09/27/18 13:20 61 16 100 Mechanical Ventilator 40 09/27/18 13:20 66 16 40 09/27/18 12:00 98.5 62 16 136/52 (80) 100 09/27/18 12:00 Mechanical Ventilator 09/27/18 12:00 40 09/27/18 11:47 64 09/27/18 11:31 98.5 09/27/18 11:22 60 16 40 09/27/18 11:00 68 18 129/71 (90) 100 09/27/18 10:00 64 16 114/66 (82) 100 09/27/18 09:54 62 16 100 Mechanical Ventilator 40 09/27/18 09:43 70 23 99 Mechanical Ventilator 40 09/27/18 09:43 40 09/27/18 09:28 100 09/27/18 09:25 68 36 40 40 09/27/18 09:00 65 19 104/84 (91) 100 09/27/18 08:57 63 18 40 40 09/27/18 08:00 40 09/27/18 08:00 Mechanical Ventilator 09/27/18 08:00 98.5 64 16 120/45 (70) 95 09/27/18 07:53 66 09/27/18 07:00 69 16 117/44 (68) 96 09/27/18 06:43 65 16 Mechanical Ventilator 60.0 40 09/27/18 06:42 63 16 100 Mechanical Ventilator 40 09/27/18 06:40 65 20 40 40 09/27/18 06:35 65 21 100 Mechanical Ventilator 40 09/27/18 06:00 67 17 119/40 (66) 99 09/27/18 05:07 65 17 40 40 09/27/18 05:00 62 17 124/81 (95) 99 09/27/18 04:00 97.8 56 18 135/45 (75) 99 09/27/18 04:00 40 09/27/18 04:00 Mechanical Ventilator 09/27/18 04:00 60 09/27/18 03:22 60 17 40 40 09/27/18 03:00 62 16 122/40 (67) 99 09/27/18 02:00 65 17 130/43 (72) 99 09/27/18 01:48 75 20 100 Mechanical Ventilator 40 09/27/18 01:38 65 16 40 40 09/27/18 01:38 65 17 100 Mechanical Ventilator 40 09/27/18 01:00 65 16 126/62 (83) 100 09/27/18 00:00 Mechanical Ventilator 09/27/18 00:00 62 09/27/18 00:00 98.0 63 16 131/53 (79) 95 09/27/18 00:00 40 09/26/18 23:08 72 18 100 Mechanical Ventilator 40 09/26/18 23:00 65 17 131/53 (79) 98 09/26/18 22:56 62 16 40 40 09/26/18 22:56 62 16 99 Mechanical Ventilator 40 09/26/18 22:00 62 16 136/49 (78) 98 09/26/18 21:04 78 19 40 40 09/26/18 21:00 66 16 120/50 (73) 99 09/26/18 20:00 65 09/26/18 20:00 98.1 69 17 137/50 (79) 100 09/26/18 20:00 Mechanical Ventilator 09/26/18 20:00 40 09/26/18 19:23 72 18 100 Mechanical Ventilator 40 09/26/18 19:12 72 17 100 Mechanical Ventilator 40 09/26/18 19:12 69 20 40 40 09/26/18 19:00 64 16 135/41 (72) 99 09/26/18 18:00 64 16 108/40 (62) 96 09/26/18 17:27 69 16 40 40 09/26/18 17:00 65 16 115/41 (65) 95 09/26/18 16:00 69 09/26/18 16:00 98.5 76 18 118/48 (71) 97 09/26/18 16:00 Mechanical Ventilator 09/26/18 16:00 40 09/26/18 15:48 69 09/26/18 15:07 71 22 40 40 09/26/18 15:00 76 21 130/82 (98) 100 Status: awake, sedated Condition: critical Neck: full ROM Heart: HR/BP stable, HR/BP unstable Abdomen: soft, active bowel sounds Extremities: no C/C/E, edema Critical Care - Subjective ROS Limited/Unobtainable: Yes Condition: critical EKG Rhythm: Sinus Rhythm FI02: 40 Vent Support Breath Rate: 16 Vent Support Mode: AC Vent Tidal Volume: 600 Sputum Amount: Scant PEEP: 5.0 PIP: 29 Tube Feeding Amount: 55 I&O: Intake and Output 09/26/18 09/27/18 19:00 07:00 Intake Total 1115.000 ml 805 ml Output Total 1935 ml 470 ml Balance -820.000 ml 335 ml Free Water 90 ml IV Total 275.000 ml 55 ml Tube Feeding 660 ml 660 ml Other 180 ml Output Urine Total 1935 ml 470 ml ET-Tube: 7.5 ET Position: 22 Labs: Laboratory Tests Test 09/27/18 04:43 White Blood Count 10.1 K/UL (4.8-10.8) Red Blood Count 3.69 M/UL (4.20-5.40) L Hemoglobin 9.4 G/DL (12.0-16.0) L Hematocrit 29.8 % (37.0-47.0) L Mean Corpuscular Volume 81 FL (80-99) Mean Corpuscular Hemoglobin 25.6 PG (27.0-31.0) L Mean Corpuscular Hemoglobin Concent 31.7 G/DL (32.0-36.0) L Red Cell Distribution Width 19.8 % (11.6-14.8) H Platelet Count 193 K/UL (150-450) Mean Platelet Volume 7.6 FL (6.5-10.1) Neutrophils (%) (Auto) 70.3 % (45.0-75.0) Lymphocytes (%) (Auto) 19.8 % (20.0-45.0) L Monocytes (%) (Auto) 8.1 % (1.0-10.0) Eosinophils (%) (Auto) 1.3 % (0.0-3.0) Basophils (%) (Auto) 0.5 % (0.0-2.0) Sodium Level 140 MMOL/L (136-145) Potassium Level 3.3 MMOL/L (3.5-5.1) L Chloride Level 104 MMOL/L (98-107) Carbon Dioxide Level 28 MMOL/L (21-32) Anion Gap 8 mmol/L (5-15) Blood Urea Nitrogen 18 mg/dL (7-18) Creatinine 0.6 MG/DL (0.55-1.30) Estimat Glomerular Filtration Rate mL/min (>60) Glucose Level 95 MG/DL (74-106) Calcium Level 8.4 MG/DL (8.5-10.1) L Phosphorus Level 3.6 MG/DL (2.5-4.9) Magnesium Level 2.1 MG/DL (1.8-2.4) Total Bilirubin 0.5 MG/DL (0.2-1.0) Aspartate Amino Transf (AST/SGOT) 9 U/L (15-37) L Alanine Aminotransferase (ALT/SGPT) 16 U/L (12-78) Alkaline Phosphatase 40 U/L (46-116) L Pro-B-Type Natriuretic Peptide 3106 pg/mL (0-125) H Total Protein 6.1 G/DL (6.4-8.2) L Albumin 2.4 G/DL (3.4-5.0) L Globulin 3.7 g/dL Albumin/Globulin Ratio 0.6 (1.0-2.7) L Mendel Sierra MD Sep 27, 2018 14:58
--- NOTE | 2018-09-27 15:45 | NUR ---
NURSE NOTES: Patient cleaned in bed and partial linens changed. Triad cream applied to perianal area. Wound dressings all dry and intact.
--- NOTE | 2018-09-27 16:39 | Internal Med Progress Note ---
Subjective Date of Service: Sep 27, 2018 Physician Name Juan Dutta Attending Physician Yonathan Mendoza MD Current Medications Medications (Trade) Dose Ordered Sig/Ibrahima Route PRN Reason Start Time Stop Time Status Last Admin Dose Admin Acetaminophen (Tylenol) 650 mg Q4H PRN ORAL Mild Pain (Pain Scale 1-3) 09/22/18 12:47 10/21/18 12:46 09/22/18 20:57 Acetaminophen/ Codeine Phosphate (Tylenol #3) 1 tab Q4H PRN ORAL ModeratePain 09/22/18 13:00 09/28/18 12:51 09/25/18 10:42 Acetaminophen/ Hydrocodone Bitart ([place] 5/325) 1 tab Q4H PRN ORAL moderate pain 09/22/18 12:52 09/28/18 12:51 Albuterol/ Ipratropium (Albuterol/ Ipratropium) 3 ml Q6HRT HHN 09/25/18 13:00 09/30/18 12:59 09/27/18 13:32 Apixaban (Eliquis) 5 mg BID ORAL 09/22/18 18:00 10/19/18 08:59 09/27/18 09:08 Cefepime HCl 1 gm/ Dextrose 55 ml @ 110 mls/hr Q24H IVPB 09/25/18 01:00 10/02/18 00:59 09/27/18 01:45 Colistimethate Sodium (Colistin *inhalation use only*) 150 mg Q12HR@10,22 INH 09/26/18 10:00 10/03/18 09:59 09/27/18 09:52 Dextrose (Dextrose 50%) 25 ml Q30M PRN IV Hypoglycemia 09/22/18 13:00 10/17/18 06:59 Dextrose (Dextrose 50%) 50 ml Q30M PRN IV Hypoglycemia 09/22/18 13:00 10/17/18 06:59 Docusate Sodium (Colace) 100 mg TID ORAL 09/22/18 13:00 10/19/18 08:59 09/27/18 13:02 Folic Acid (Folate) 5 mg DAILY ORAL 09/23/18 09:00 10/18/18 09:59 09/27/18 09:08 Furosemide (Lasix) 40 mg DAILY IV 09/26/18 09:00 10/26/18 08:59 09/27/18 09:08 Lorazepam (Ativan 2mg/ml 1ml) 2 mg Q4H PRN IV For Anxiety 09/22/18 13:00 09/29/18 12:59 09/26/18 01:14 Morphine Sulfate (Morphine Sulfate) 4 mg Q4H PRN IVP Severe pain(7-10) 09/22/18 12:58 09/29/18 12:57 09/27/18 11:01 Ondansetron HCl (Zofran) 4 mg Q6H PRN IVP Nausea & Vomiting 09/22/18 12:49 10/21/18 12:48 Pantoprazole (Protonix) 40 mg DAILY IV 09/23/18 09:00 10/23/18 08:59 09/27/18 09:07 Polyethylene Glycol (Miralax) 17 gm DAILYPRN PRN ORAL Constipation 09/22/18 12:50 10/21/18 12:49 Potassium Chloride (K-Dur) 40 meq TWICE A DAY NGT 09/27/18 12:45 10/27/18 12:44 09/27/18 13:02 Prednisone (predniSONE) 30 mg DAILY ORAL 09/28/18 09:00 10/20/18 08:59 Risperidone (RisperDAL) 1 mg BEDTIME ORAL 09/22/18 21:00 10/17/18 20:59 09/26/18 21:16 Thiamine HCl (Vitamin B1) 100 mg DAILY ORAL 09/23/18 09:00 10/20/18 08:59 09/27/18 09:08 Vancomycin HCl (Vanco rx to dose) 1 ea DAILY PRN MISC Per rx protocol 09/25/18 13:15 10/25/18 13:14 Vancomycin HCl 750 mg/Sodium Chloride 275 ml @ 183.333 mls/hr Q24H IVPB 09/26/18 14:00 10/01/18 13:59 09/27/18 14:03 Allergies: Coded Allergies: PIPERACILLIN (Unverified Allergy, Unknown, 05/21/18) tolerates cephalosporins TAZOBACTAM (Unverified Allergy, Unknown, 03/10/18) ROS Limited/Unobtainable: Yes Subjective 77 YO F admitted for respiratory distress. Now left lung opacification. Intubated and sedated. Cover for Int Med-DR Mendoza. ICU Objective Last Vital Signs Date Time Temp Pulse Resp B/P (MAP) Pulse Ox O2 Delivery O2 Flow Rate FiO2 09/27/18 16:00 97.9 68 16 140/48 (78) 100 09/27/18 15:28 40 09/27/18 13:27 Mechanical Ventilator 09/27/18 06:43 60.0 Laboratory Tests Test 09/27/18 04:43 White Blood Count 10.1 K/UL (4.8-10.8) Red Blood Count 3.69 M/UL (4.20-5.40) L Hemoglobin 9.4 G/DL (12.0-16.0) L Hematocrit 29.8 % (37.0-47.0) L Mean Corpuscular Volume 81 FL (80-99) Mean Corpuscular Hemoglobin 25.6 PG (27.0-31.0) L Mean Corpuscular Hemoglobin Concent 31.7 G/DL (32.0-36.0) L Red Cell Distribution Width 19.8 % (11.6-14.8) H Platelet Count 193 K/UL (150-450) Mean Platelet Volume 7.6 FL (6.5-10.1) Neutrophils (%) (Auto) 70.3 % (45.0-75.0) Lymphocytes (%) (Auto) 19.8 % (20.0-45.0) L Monocytes (%) (Auto) 8.1 % (1.0-10.0) Eosinophils (%) (Auto) 1.3 % (0.0-3.0) Basophils (%) (Auto) 0.5 % (0.0-2.0) Sodium Level 140 MMOL/L (136-145) Potassium Level 3.3 MMOL/L (3.5-5.1) L Chloride Level 104 MMOL/L (98-107) Carbon Dioxide Level 28 MMOL/L (21-32) Anion Gap 8 mmol/L (5-15) Blood Urea Nitrogen 18 mg/dL (7-18) Creatinine 0.6 MG/DL (0.55-1.30) Estimat Glomerular Filtration Rate mL/min (>60) Glucose Level 95 MG/DL (74-106) Calcium Level 8.4 MG/DL (8.5-10.1) L Phosphorus Level 3.6 MG/DL (2.5-4.9) Magnesium Level 2.1 MG/DL (1.8-2.4) Total Bilirubin 0.5 MG/DL (0.2-1.0) Aspartate Amino Transf (AST/SGOT) 9 U/L (15-37) L Alanine Aminotransferase (ALT/SGPT) 16 U/L (12-78) Alkaline Phosphatase 40 U/L (46-116) L Pro-B-Type Natriuretic Peptide 3106 pg/mL (0-125) H Total Protein 6.1 G/DL (6.4-8.2) L Albumin 2.4 G/DL (3.4-5.0) L Globulin 3.7 g/dL Albumin/Globulin Ratio 0.6 (1.0-2.7) L Intake and Output 09/26/18 09/27/18 19:00 07:00 Intake Total 1115.000 ml 805 ml Output Total 1935 ml 470 ml Balance -820.000 ml 335 ml Free Water 90 ml IV Total 275.000 ml 55 ml Tube Feeding 660 ml 660 ml Other 180 ml Output Urine Total 1935 ml 470 ml Objective PHYSICAL EXAMINATION: GENERAL: The patient is a well-developed and well-nourished white female, who is in moderate respiratory distress. HEENT: Eyes, pupils are equal and responsive to light and accommodation. Extraocular movements are intact. NECK: Supple without lymphadenopathy. CHEST: Mech vent; Few rales in bilateral bases, otherwise, Lungs are clear to auscultation bilaterally without wheezes CARDIOVASCULAR: Regular rhythm and rate. S1 and S2 normal without murmurs, rubs, or gallops. ABDOMEN: Soft, nontender, and nondistended. Positive bowel sounds. No evidence of hepatosplenomegaly. Currently, no rebound or guarding noted. EXTREMITIES: Negative for clubbing, cyanosis, or edema. RECTAL/GENITAL: Refused. NEUROLOGIC: Cranial nerves II through XII are grossly intact without focal deficits. Motor strength is 5/5 bilaterally. Deep tendon reflexes are 2+ plantar. Assessment/Plan Assessment/Plan ASSESSMENT: This is a 77-year-old white female with: 1. Shortness of breath. 2. Hypoxia. 3. Acute on chronic congestive heart failure. 4. Atrial flutter. 5. Hyponatremia. 6. Chronic obstructive pulmonary disease. 7. Coronary artery disease. 8. Hypertension. 9. Seizure disorder. 10. Paranoid schizophrenia. 11. Intraventricular pacemaker 12. left lung opacification-collapse per CT TREATMENT: 1. Shortness of breath/congestive heart failure. Continue mech vent per pulmonary Dr Sierra. Cardiologyconsultation has been obtained with Dr. Milian. The patient is currently receiving intravenous Lasix. We will follow recommendation of Cardiology. BNP is elevated at over greater than 5000. An echocardiogram is pending. 2. Atrial flutter. Continue Eliquis as above. 3. Hyponatremia. The patient is currently receiving intravenous fluids. 4. Chronic obstructive pulmonary disease. Continue DuoNeb nebulized as above. The patient was initially placed on BiPAP in the emergency room. A Pulmonary consultation has been obtained with Dr. Mendel Sierra. 5. Hypertension. Continue Lasix as above. 6. Seizure disorder. The patient is currently off antiseizure medication. 7. Paranoid schizophrenia. Continue Risperdal as above. Juan Dutta MD Sep 27, 2018 16:39
--- NOTE | 2018-09-27 17:43 | NUR ---
NURSE NOTES: Patient c/o left thigh pain 8/10. PRN morphine IVP given and was effective. Patient now states that pain is 3/10.
--- NOTE | 2018-09-27 19:22 | NUR ---
HAND-OFF: Report given to Moise Barros RN.
--- NOTE | 2018-09-27 19:25 | NUR ---
RESPIRATORY NOTE: PT. RECEIVED STABLE ON AC/VC 16, 600, 40%, +5. ALARMS ON AND AUDIBLE. ETT SECURE AND PATENT. BILATERAL SOFT WRIST RESTRAINS SECURELY PLACED. VENT CIRCUIT SECURE AND OUT OF THE WAY. NO SIGN OF RESPIRATORY DISTRESS NOTED AT THIS TIME. WILL CONTINUE TO MONITOR.
--- NOTE | 2018-09-27 20:00 | NUR ---
NURSE NOTES: pt orally intubated -vent o2 sat 100 o/o no acute resp distress notes lethargic open eyes to touch follows simple command on carla soft restraints nan complaints reposition and suction iv site good infusing will
--- NOTE | 2018-09-27 22:03 | NUR ---
NURSE NOTES: no acute distress note reposition and suction
--- NOTE | 2018-09-27 22:59 | Diagnostic Imaging Report ---
APPROVED REPORT CPT Code: 95752 Present Symptoms Shortness of breath Comments: Respiratory Distress BILATERAL: Imaging reveals a patent deep venous system bilaterally. There is no evidence of thrombus within the common femoral, superficial femoral, popliteal or tibial segments. The greater saphenous veins are within normal limits. Doppler indicates normal spontaneous flow within these segments.
[2018-09-28] VITALS (24 sets, daily range): BP systolic 102–144; BP diastolic 36–65
--- NOTE | 2018-09-28 | NUR ---
NURSE NOTES: condition un change
[2018-09-28] MEDS: Albuterol/Ipratropium 3ml neb HHN SCH ×4 (00:43→19:05)
[2018-09-28] MEDS: Cefepime HCl 1 GM in D5W 55 ML IVPB SCH (01:00)
--- NOTE | 2018-09-28 02:00 | NUR ---
NURSE NOTES: reposition and suction no acute distress noted
--- NOTE | 2018-09-28 04:00 | NUR ---
NURSE NOTES: complete bed bath oral care and back care done tolerating tube feeding well
--- NOTE | 2018-09-28 05:00 | NUR ---
RESPIRATORY NOTE: PT REMAINED STABLE ON CMV WITH CURRENT SETTINGS. SXN'D PRN WITH NO ADVERSE REACTION.RESP. TX TOLERATED WELL. AIRWAY SECURE AND PATENT. VENT CIRCUIT AND SX TUBING SECURE AND OUT OF THE WAY. NO SIGN OF RESPIRATORY DISTRESS NOTED AT THIS TIME.
[2018-09-28 05:25] LABS: BASOPHILS % (AUTO) 0.9 % (0.0-2.0); EOSINOPHILS % (AUTO) 1.1 % (0.0-3.0); HEMOGLOBIN 8.9 G/DL (12.0-16.0); LYMPHOCYTES % (AUTO) 20.2 % (20.0-45.0); MEAN CORPUSCULAR VOLUME 82 FL (80-99); NEUTROPHILS % (AUTO) 68.8 % (45.0-75.0); PLATELET COUNT 174 K/UL (150-450); RED BLOOD COUNT 3.51 M/UL (4.20-5.40); RED CELL DISTRIBUTION WIDTH 19.4 % (11.6-14.8); WHITE BLOOD COUNT 8.5 K/UL (4.8-10.8)
[2018-09-28 05:38] LABS: ALANINE AMINOTRANSFERASE 29 U/L (12-78); ALBUMIN 2.4 G/DL (3.4-5.0); ALBUMIN/GLOBULIN RATIO 0.7 (1.0-2.7); ALKALINE PHOSPHATASE 43 U/L (46-116); ANION GAP 9 mmol/L (5-15); ASPARTATE AMINO TRANSFERASE 21 U/L (15-37); BILIRUBIN,TOTAL 0.4 MG/DL (0.2-1.0); BLOOD UREA NITROGEN 20 mg/dL (7-18); CALCIUM 8.5 MG/DL (8.5-10.1); CARBON DIOXIDE 27 MMOL/L (21-32); CHLORIDE 107 MMOL/L (98-107); CREATININE 0.6 MG/DL (0.55-1.30); PHOSPHORUS 3.2 MG/DL (2.5-4.9); POTASSIUM 3.8 MMOL/L (3.5-5.1); SODIUM 143 MMOL/L (136-145)
--- NOTE | 2018-09-28 06:00 | NUR ---
asleep no acute distress noted
--- NOTE | 2018-09-28 06:47 | General Progress Note ---
Assessment/Plan Problem List: (1) COPD (chronic obstructive pulmonary disease) ICD Codes: J44.9 - Chronic obstructive pulmonary disease, unspecified SNOMED: 73792273 Qualifiers: Qualified Codes: J44.9 - Chronic obstructive pulmonary disease, unspecified (2) Hyponatremia ICD Codes: E87.1 - Hyponatremia SNOMED: 45555309 (3) HTN (hypertension) ICD Codes: I10 - Hypertension SNOMED: 05098349 Assessment/Plan: remained intubated on Prednisone 30 mg daily electrolytes are normal continue excellent ICU care Subjective ROS Limited/Unobtainable: Yes Allergies: Coded Allergies: PIPERACILLIN (Unverified Allergy, Unknown, 05/21/18) tolerates cephalosporins TAZOBACTAM (Unverified Allergy, Unknown, 03/10/18) Subjective events noted she remained intubated in ICU Objective Last 24 Hour Vital Signs Date Time Temp Pulse Resp B/P (MAP) Pulse Ox O2 Delivery O2 Flow Rate FiO2 09/28/18 06:00 60 16 141/36 (71) 100 09/28/18 05:00 60 16 141/36 (71) 100 09/28/18 05:00 69 18 40 09/28/18 04:00 Mechanical Ventilator 09/28/18 04:00 40 09/28/18 04:00 61 09/28/18 04:00 98.0 60 16 141/36 (71) 100 09/28/18 03:10 69 26 40 09/28/18 03:00 60 16 141/36 (71) 100 09/28/18 02:00 61 16 144/44 (77) 100 09/28/18 01:00 63 16 141/44 (76) 100 09/28/18 00:55 61 16 100 Mechanical Ventilator 40 09/28/18 00:43 61 16 100 Mechanical Ventilator 40 09/28/18 00:43 61 16 40 09/28/18 00:00 40 09/28/18 00:00 Mechanical Ventilator 09/28/18 00:00 64 09/28/18 00:00 97.8 61 16 137/41 (73) 100 09/27/18 23:00 64 16 40 09/27/18 23:00 61 16 147/53 (84) 100 09/27/18 22:00 61 16 144/51 (82) 100 09/27/18 21:37 64 16 100 Mechanical Ventilator 40 09/27/18 21:27 40 09/27/18 21:27 74 23 100 Mechanical Ventilator 40 09/27/18 21:27 74 23 40 09/27/18 21:00 97.8 61 16 142/49 (80) 100 09/27/18 20:00 64 09/27/18 20:00 40 09/27/18 20:00 Mechanical Ventilator 09/27/18 20:00 97.8 64 16 140/60 (86) 100 09/27/18 19:33 68 25 100 Mechanical Ventilator 40 09/27/18 19:25 61 16 100 Mechanical Ventilator 40 09/27/18 19:25 61 16 40 09/27/18 19:00 61 16 140/57 (84) 100 09/27/18 18:00 70 20 139/51 (80) 100 09/27/18 17:43 97.9 09/27/18 17:09 74 17 40 09/27/18 17:00 73 16 127/66 (86) 100 09/27/18 16:00 40 09/27/18 16:00 79 09/27/18 16:00 97.9 68 16 140/48 (78) 100 09/27/18 16:00 Mechanical Ventilator 09/27/18 15:28 62 16 40 09/27/18 15:00 74 16 147/46 (79) 97 09/27/18 14:00 67 17 154/48 (83) 100 09/27/18 13:27 63 16 100 Mechanical Ventilator 40 09/27/18 13:20 61 16 100 Mechanical Ventilator 40 09/27/18 13:20 66 16 40 09/27/18 13:00 61 16 142/66 (91) 100 09/27/18 12:00 98.5 62 16 136/52 (80) 100 09/27/18 12:00 Mechanical Ventilator 09/27/18 12:00 40 09/27/18 11:47 64 09/27/18 11:22 60 16 40 09/27/18 11:00 68 18 129/71 (90) 100 09/27/18 10:00 64 16 114/66 (82) 100 09/27/18 09:54 62 16 100 Mechanical Ventilator 40 09/27/18 09:43 70 23 99 Mechanical Ventilator 40 09/27/18 09:43 40 09/27/18 09:28 100 09/27/18 09:25 68 36 40 40 09/27/18 09:00 65 19 104/84 (91) 100 09/27/18 08:57 63 18 40 40 09/27/18 08:00 40 09/27/18 08:00 Mechanical Ventilator 09/27/18 08:00 98.5 64 16 120/45 (70) 95 09/27/18 07:53 66 09/27/18 07:00 69 16 117/44 (68) 96 Intake and Output 09/27/18 09/28/18 18:59 06:59 Intake Total 1475.000 ml 660 ml Output Total 1265 ml 820 ml Balance 210.000 ml -160 ml Free Water 0 ml IV Total 275.000 ml 55 ml Tube Feeding 660 ml 605 ml Other 540 ml Output Urine Total 1265 ml 820 ml Laboratory Tests 09/28/18 04:10: White Blood Count 8.5, Red Blood Count 3.51L, Hemoglobin 8.9L, Hematocrit 29.0L , Mean Corpuscular Volume 82, Mean Corpuscular Hemoglobin 25.3L, Mean Corpuscular Hemoglobin Concent 30.7L, Red Cell Distribution Width 19.4H, Platelet Count 174, Mean Platelet Volume 7.7, Neutrophils (%) (Auto) 68.8, Lymphocytes (%) (Auto) 20.2, Monocytes (%) (Auto) 9.0, Eosinophils (%) (Auto) 1.1, Basophils (%) (Auto) 0.9, Sodium Level 143, Potassium Level 3.8, Chloride Level 107, Carbon Dioxide Level 27, Anion Gap 9, Blood Urea Nitrogen 20H, Creatinine 0.6, Estimat Glomerular Filtration Rate , Glucose Level 96, Calcium Level 8.5, Phosphorus Level 3.2, Magnesium Level 2.3, Total Bilirubin 0.4, Aspartate Amino Transf (AST/SGOT) 21, Alanine Aminotransferase (ALT/SGPT) 29, Alkaline Phosphatase 43L, Total Protein 5.9L, Albumin 2.4L, Globulin 3.5, Albumin/Globulin Ratio 0.7L Height (Feet): 5 Weight (Pounds): 176 General Appearance: other - intubated EENT: other - ETT Cardiovascular: normal rate Respiratory/Chest: decreased breath sounds Abdomen: normal bowel sounds Pelvis: normal external exam Objective Current Medications Medications (Trade) Dose Ordered Sig/Ibrahima Route PRN Reason Start Time Stop Time Status Last Admin Dose Admin Acetaminophen (Tylenol) 650 mg Q4H PRN ORAL Mild Pain (Pain Scale 1-3) 09/22/18 12:47 10/21/18 12:46 09/22/18 20:57 Acetaminophen/ Codeine Phosphate (Tylenol #3) 1 tab Q4H PRN ORAL ModeratePain 09/22/18 13:00 09/28/18 12:51 09/25/18 10:42 Acetaminophen/ Hydrocodone Bitart ([place] 5/325) 1 tab Q4H PRN ORAL moderate pain 09/22/18 12:52 09/28/18 12:51 Albuterol/ Ipratropium (Albuterol/ Ipratropium) 3 ml Q6HRT HHN 09/25/18 13:00 09/30/18 12:59 09/28/18 00:43 Apixaban (Eliquis) 5 mg BID ORAL 09/22/18 18:00 10/19/18 08:59 09/27/18 18:00 Cefepime HCl 1 gm/ Dextrose 55 ml @ 110 mls/hr Q24H IVPB 09/25/18 01:00 10/02/18 00:59 09/28/18 01:00 Colistimethate Sodium (Colistin *inhalation use only*) 150 mg Q12HR@10,22 INH 09/26/18 10:00 10/03/18 09:59 09/27/18 21:31 Dextrose (Dextrose 50%) 25 ml Q30M PRN IV Hypoglycemia 09/22/18 13:00 10/17/18 06:59 Dextrose (Dextrose 50%) 50 ml Q30M PRN IV Hypoglycemia 09/22/18 13:00 10/17/18 06:59 Docusate Sodium (Colace) 100 mg TID ORAL 09/22/18 13:00 10/19/18 08:59 09/27/18 18:03 Folic Acid (Folate) 5 mg DAILY ORAL 09/23/18 09:00 10/18/18 09:59 09/27/18 09:08 Furosemide (Lasix) 40 mg DAILY IV 09/26/18 09:00 10/26/18 08:59 09/27/18 09:08 Lorazepam (Ativan 2mg/ml 1ml) 2 mg Q4H PRN IV For Anxiety 09/22/18 13:00 09/29/18 12:59 09/26/18 01:14 Morphine Sulfate (Morphine Sulfate) 4 mg Q4H PRN IVP Severe pain(7-10) 09/22/18 12:58 09/29/18 12:57 09/27/18 17:13 Ondansetron HCl (Zofran) 4 mg Q6H PRN IVP Nausea & Vomiting 09/22/18 12:49 10/21/18 12:48 Pantoprazole (Protonix) 40 mg DAILY IV 09/23/18 09:00 10/23/18 08:59 09/27/18 09:07 Polyethylene Glycol (Miralax) 17 gm DAILYPRN PRN ORAL Constipation 09/22/18 12:50 10/21/18 12:49 Potassium Chloride (K-Dur) 40 meq TWICE A DAY NGT 09/27/18 12:45 10/27/18 12:44 09/27/18 18:01 Prednisone (predniSONE) 30 mg DAILY ORAL 09/28/18 09:00 10/20/18 08:59 Risperidone (RisperDAL) 1 mg BEDTIME ORAL 09/22/18 21:00 10/17/18 20:59 09/27/18 21:26 Thiamine HCl (Vitamin B1) 100 mg DAILY ORAL 09/23/18 09:00 10/20/18 08:59 09/27/18 09:08 Vancomycin HCl (Vanco rx to dose) 1 ea DAILY PRN MISC Per rx protocol 09/25/18 13:15 10/25/18 13:14 Vancomycin HCl 750 mg/Sodium Chloride 275 ml @ 183.333 mls/hr Q24H IVPB 09/26/18 14:00 10/01/18 13:59 09/27/18 14:03 Daniel Little MD Sep 28, 2018 06:47
--- NOTE | 2018-09-28 07:12 | NUR ---
RESPIRATORY NOTE: pt intubated with 7.5 ett, placed 22cm at the lip, secured via anchor fast. no redness or skin tears visible around facial, mouth or neck area. no resp distress noted at this time. current vent settings are as followed. alarms are set and audible with vent plugged into red outlet. ambu bag at bedside. will cont to monitor and follow weaning determination later this morning.
--- NOTE | 2018-09-28 07:46 | NUR ---
HAND-OFF: Report given to katerin rn using sbar.
--- NOTE | 2018-09-28 07:50 | NUR ---
NURSE NOTES: Report received from Francine OVALLES.Pt on ETT-Vent ,on current settings,AC 16,TV 600 Fio2 40% Peep 5,tolerating well no resp distress presented,no signs of pain or discomfort,on Afib /V-Paced on the monitor,GTF Glucerna 1.5 at 50 ml/hr,no residual noted,López cath draining yellow urine,IV site to LFA intact,SR up x2 HOB elevated,bilat soft wrist restraints in placed,bed lock in lowest position,will continue with plans of care.
--- NOTE | 2018-09-28 09:07 | NUR ---
RESPIRATORY NOTE: placed pt on CPAP PS 8 at 0900. no resp distress noted at this time. tolerating settings. will cont to monitor.
--- NOTE | 2018-09-28 09:10 | NUR ---
NURSE NOTES: On weaning process,on CPAP ,PS 8,tolerating well,Dr Sierra at bedside,informed re weaning process being tolerated,ordered to extubate pt.
--- NOTE | 2018-09-28 09:17 | Diagnostic Imaging Report ---
Indication: Dyspnea Technique: One view of the chest Comparison: 09/27/2018 Findings: There is slight indistinctness of the left hemidiaphragm, could indicate some atelectasis or pleural fluid at the left lung base. Stable satisfactory positions of endotracheal and nasogastric tubes. The right lung and pleural space, left upper lung remain clear. There is slightly decreased right basilar atelectasis and better aeration of the right lung. Impression: Suspect pleural and/or parenchymal disease at the left lung base. Improved aeration of the right lung base, otherwise minimal interim change
[2018-09-28] MEDS: Pantoprazole Inj IV SCH (09:18)
[2018-09-28] MEDS: Docusate 100mg/10ml Liq ORAL SCH ×3 (09:18→17:53)
[2018-09-28] MEDS: Eliquis 2.5mg tablet ORAL SCH ×2 (09:19→17:53)
[2018-09-28] MEDS: Thiamine 100mg tab ORAL SCH (09:25)
--- NOTE | 2018-09-28 09:31 | NUR ---
RADIOLOGY DEPT., CHEST X-RAY DONE.-P.DYE
--- NOTE | 2018-09-28 09:43 | Pulmonolgy Critical Care Note ---
Critical Care - Asmt/Plan Problems: (1) Respiratory failure, acute (2) Collapse of left lung Assessment & Plan: resolved (3) Atrial fibrillation with RVR (4) Hyponatremia (5) COPD (chronic obstructive pulmonary disease) (6) Anemia, chronic disease Respiratory: monitor respiratory rate, adjust FIO2, CXR Cardiac: continue to monitor HR/BP Renal: F/U I&O Infectious Disease: check cultures Gastrointestinal: continue feedings/current rate Endocrine: monitor blood sugar, check TSH Hematologic: transfuse if hgb<8.5 Neurologic: PRN Ativan, keep patient comfortable Affect: PRN ativan Prophylaxis: Heparin Notes Reviewed: private branch exchange repairer Discussed with: nurses, consultants, case brieferbenefits manager - Objective Last 24 Hour Vital Signs Date Time Temp Pulse Resp B/P (MAP) Pulse Ox O2 Delivery O2 Flow Rate FiO2 09/28/18 09:02 63 19 40 09/28/18 09:00 100 09/28/18 08:00 40 09/28/18 08:00 98.5 61 23 125/44 (71) 100 09/28/18 08:00 Mechanical Ventilator 09/28/18 07:23 61 17 100 Mechanical Ventilator 40 09/28/18 07:11 61 18 100 Mechanical Ventilator 40 09/28/18 07:08 72 19 40 09/28/18 07:00 63 19 126/45 (72) 100 09/28/18 06:00 60 16 141/36 (71) 100 09/28/18 05:00 60 16 141/36 (71) 100 09/28/18 05:00 69 18 40 09/28/18 04:00 Mechanical Ventilator 09/28/18 04:00 40 09/28/18 04:00 61 09/28/18 04:00 98.0 60 16 141/36 (71) 100 09/28/18 03:10 69 26 40 09/28/18 03:00 60 16 141/36 (71) 100 09/28/18 02:00 61 16 144/44 (77) 100 09/28/18 01:00 63 16 141/44 (76) 100 09/28/18 00:55 61 16 100 Mechanical Ventilator 40 09/28/18 00:43 61 16 100 Mechanical Ventilator 40 09/28/18 00:43 61 16 40 09/28/18 00:00 40 09/28/18 00:00 Mechanical Ventilator 09/28/18 00:00 64 09/28/18 00:00 97.8 61 16 137/41 (73) 100 09/27/18 23:00 64 16 40 09/27/18 23:00 61 16 147/53 (84) 100 09/27/18 22:00 61 16 144/51 (82) 100 09/27/18 21:37 64 16 100 Mechanical Ventilator 40 09/27/18 21:27 40 09/27/18 21:27 74 23 100 Mechanical Ventilator 40 09/27/18 21:27 74 23 40 09/27/18 21:00 97.8 61 16 142/49 (80) 100 09/27/18 20:00 64 09/27/18 20:00 40 09/27/18 20:00 Mechanical Ventilator 09/27/18 20:00 97.8 64 16 140/60 (86) 100 09/27/18 19:33 68 25 100 Mechanical Ventilator 40 09/27/18 19:25 61 16 100 Mechanical Ventilator 40 09/27/18 19:25 61 16 40 09/27/18 19:00 61 16 140/57 (84) 100 09/27/18 18:00 70 20 139/51 (80) 100 09/27/18 17:43 97.9 09/27/18 17:09 74 17 40 09/27/18 17:00 73 16 127/66 (86) 100 09/27/18 16:00 40 09/27/18 16:00 79 09/27/18 16:00 97.9 68 16 140/48 (78) 100 09/27/18 16:00 Mechanical Ventilator 09/27/18 15:28 62 16 40 09/27/18 15:00 74 16 147/46 (79) 97 09/27/18 14:00 67 17 154/48 (83) 100 09/27/18 13:27 63 16 100 Mechanical Ventilator 40 09/27/18 13:20 61 16 100 Mechanical Ventilator 40 09/27/18 13:20 66 16 40 09/27/18 13:00 61 16 142/66 (91) 100 09/27/18 12:00 98.5 62 16 136/52 (80) 100 09/27/18 12:00 Mechanical Ventilator 09/27/18 12:00 40 09/27/18 11:47 64 09/27/18 11:22 60 16 40 09/27/18 11:00 68 18 129/71 (90) 100 09/27/18 10:00 64 16 114/66 (82) 100 09/27/18 09:54 62 16 100 Mechanical Ventilator 40 09/27/18 09:43 70 23 99 Mechanical Ventilator 40 09/27/18 09:43 40 Status: awake HEENT: atraumatic, normocephalic Neck: full ROM Lungs: clear Heart: HR/BP stable Abdomen: soft, non-tender Micro: Microbiology Date/Time Source Procedure Growth Status 09/26/18 12:00 Blood Blood Culture - Preliminary NO GROWTH AFTER 24 HOURS Resulted 09/26/18 11:50 Blood Blood Culture - Preliminary Gram Positive Cocci Resulted Critical Care - Subjective ROS Limited/Unobtainable: Yes Condition: critical EKG Rhythm: Sinus Rhythm FI02: 40 Vent Support Breath Rate: 16 Vent Support Mode: CPAP Vent Tidal Volume: 600 Sputum Amount: Small PEEP: 5.0 PIP: 14 Tube Feeding Amount: 50 I&O: Intake and Output 09/27/18 09/28/18 18:59 06:59 Intake Total 1475.000 ml 660 ml Output Total 1265 ml 820 ml Balance 210.000 ml -160 ml Free Water 0 ml IV Total 275.000 ml 55 ml Tube Feeding 660 ml 605 ml Other 540 ml Output Urine Total 1265 ml 820 ml CXR: clear ET-Tube: 7.5 ET Position: 22 Labs: Laboratory Tests Test 09/28/18 04:10 09/28/18 08:13 White Blood Count 8.5 K/UL (4.8-10.8) Red Blood Count 3.51 M/UL (4.20-5.40) L Hemoglobin 8.9 G/DL (12.0-16.0) L Hematocrit 29.0 % (37.0-47.0) L Mean Corpuscular Volume 82 FL (80-99) Mean Corpuscular Hemoglobin 25.3 PG (27.0-31.0) L Mean Corpuscular Hemoglobin Concent 30.7 G/DL (32.0-36.0) L Red Cell Distribution Width 19.4 % (11.6-14.8) H Platelet Count 174 K/UL (150-450) Mean Platelet Volume 7.7 FL (6.5-10.1) Neutrophils (%) (Auto) 68.8 % (45.0-75.0) Lymphocytes (%) (Auto) 20.2 % (20.0-45.0) Monocytes (%) (Auto) 9.0 % (1.0-10.0) Eosinophils (%) (Auto) 1.1 % (0.0-3.0) Basophils (%) (Auto) 0.9 % (0.0-2.0) Sodium Level 143 MMOL/L (136-145) Potassium Level 3.8 MMOL/L (3.5-5.1) Chloride Level 107 MMOL/L (98-107) Carbon Dioxide Level 27 MMOL/L (21-32) Anion Gap 9 mmol/L (5-15) Blood Urea Nitrogen 20 mg/dL (7-18) H Creatinine 0.6 MG/DL (0.55-1.30) Estimat Glomerular Filtration Rate mL/min (>60) Glucose Level 96 MG/DL (74-106) Calcium Level 8.5 MG/DL (8.5-10.1) Phosphorus Level 3.2 MG/DL (2.5-4.9) Magnesium Level 2.3 MG/DL (1.8-2.4) Total Bilirubin 0.4 MG/DL (0.2-1.0) Aspartate Amino Transf (AST/SGOT) 21 U/L (15-37) Alanine Aminotransferase (ALT/SGPT) 29 U/L (12-78) Alkaline Phosphatase 43 U/L (46-116) L Total Protein 5.9 G/DL (6.4-8.2) L Albumin 2.4 G/DL (3.4-5.0) L Globulin 3.5 g/dL Albumin/Globulin Ratio 0.7 (1.0-2.7) L Arterial Blood pH 7.569 (7.350-7.450) Arterial Blood Partial Pressure CO2 26.5 mmHg (35.0-45.0) L Arterial Blood Partial Pressure O2 150.4 mmHg (75.0-100.0) H Arterial Blood HCO3 23.7 mmol/L (22.0-26.0) Arterial Blood Oxygen Saturation 98.5 % (95-100) Arterial Blood Base Excess 2.2 (-2-2) H Ian Test Positive Mendel Sierra MD Sep 28, 2018 09:43
--- NOTE | 2018-09-28 10:01 | Nephrology Progress Note ---
Assessment/Plan Problem List: (1) Respiratory failure, acute (2) Hyponatremia (3) Seizure disorder (4) Acute diastolic CHF (congestive heart failure) (5) COPD (chronic obstructive pulmonary disease) (6) Pacemaker Assessment HypoNatremia ? Etiology: depletional / Diuretics / SIADH ... bronchoscopy for left lung collapse Acute respiratory failure on BIPAP- COPD Encephalopathy due to high CO2 Pacemaker UTI Low MCV Anemia Hypoalbuminemia EjFx 55% last admission h/o Atfib Plan K supplement as needed taper steroid intubated Off Diamox for now López PRN lasix IV iron monitor lytes Anemia clinton per orders Subjective ROS Limited/Unobtainable: Yes Objective Objective Last 24 Hour Vital Signs Date Time Temp Pulse Resp B/P (MAP) Pulse Ox O2 Delivery O2 Flow Rate FiO2 09/28/18 09:02 63 19 40 09/28/18 09:00 100 09/28/18 08:00 40 09/28/18 08:00 98.5 61 23 125/44 (71) 100 09/28/18 08:00 Mechanical Ventilator 09/28/18 07:23 61 17 100 Mechanical Ventilator 40 09/28/18 07:11 61 18 100 Mechanical Ventilator 40 09/28/18 07:08 72 19 40 09/28/18 07:00 63 19 126/45 (72) 100 09/28/18 06:00 60 16 141/36 (71) 100 09/28/18 05:00 60 16 141/36 (71) 100 09/28/18 05:00 69 18 40 09/28/18 04:00 Mechanical Ventilator 09/28/18 04:00 40 09/28/18 04:00 61 09/28/18 04:00 98.0 60 16 141/36 (71) 100 09/28/18 03:10 69 26 40 09/28/18 03:00 60 16 141/36 (71) 100 09/28/18 02:00 61 16 144/44 (77) 100 09/28/18 01:00 63 16 141/44 (76) 100 09/28/18 00:55 61 16 100 Mechanical Ventilator 40 09/28/18 00:43 61 16 100 Mechanical Ventilator 40 09/28/18 00:43 61 16 40 09/28/18 00:00 40 09/28/18 00:00 Mechanical Ventilator 09/28/18 00:00 64 09/28/18 00:00 97.8 61 16 137/41 (73) 100 09/27/18 23:00 64 16 40 09/27/18 23:00 61 16 147/53 (84) 100 09/27/18 22:00 61 16 144/51 (82) 100 09/27/18 21:37 64 16 100 Mechanical Ventilator 40 09/27/18 21:27 40 09/27/18 21:27 74 23 100 Mechanical Ventilator 40 09/27/18 21:27 74 23 40 09/27/18 21:00 97.8 61 16 142/49 (80) 100 09/27/18 20:00 64 09/27/18 20:00 40 09/27/18 20:00 Mechanical Ventilator 09/27/18 20:00 97.8 64 16 140/60 (86) 100 09/27/18 19:33 68 25 100 Mechanical Ventilator 40 09/27/18 19:25 61 16 100 Mechanical Ventilator 40 09/27/18 19:25 61 16 40 09/27/18 19:00 61 16 140/57 (84) 100 09/27/18 18:00 70 20 139/51 (80) 100 09/27/18 17:43 97.9 09/27/18 17:09 74 17 40 09/27/18 17:00 73 16 127/66 (86) 100 09/27/18 16:00 40 09/27/18 16:00 79 09/27/18 16:00 97.9 68 16 140/48 (78) 100 09/27/18 16:00 Mechanical Ventilator 09/27/18 15:28 62 16 40 09/27/18 15:00 74 16 147/46 (79) 97 09/27/18 14:00 67 17 154/48 (83) 100 09/27/18 13:27 63 16 100 Mechanical Ventilator 40 09/27/18 13:20 61 16 100 Mechanical Ventilator 40 09/27/18 13:20 66 16 40 09/27/18 13:00 61 16 142/66 (91) 100 09/27/18 12:00 98.5 62 16 136/52 (80) 100 09/27/18 12:00 Mechanical Ventilator 09/27/18 12:00 40 09/27/18 11:47 64 4/28/19 11:22 60 16 40 09/27/18 11:00 68 18 129/71 (90) 100 Intake and Output 09/27/18 09/28/18 18:59 06:59 Intake Total 1475.000 ml 660 ml Output Total 1265 ml 820 ml Balance 210.000 ml -160 ml Free Water 0 ml IV Total 275.000 ml 55 ml Tube Feeding 660 ml 605 ml Other 540 ml Output Urine Total 1265 ml 820 ml Laboratory Tests 09/28/18 04:10: White Blood Count 8.5, Red Blood Count 3.51L, Hemoglobin 8.9L, Hematocrit 29.0L , Mean Corpuscular Volume 82, Mean Corpuscular Hemoglobin 25.3L, Mean Corpuscular Hemoglobin Concent 30.7L, Red Cell Distribution Width 19.4H, Platelet Count 174, Mean Platelet Volume 7.7, Neutrophils (%) (Auto) 68.8, Lymphocytes (%) (Auto) 20.2, Monocytes (%) (Auto) 9.0, Eosinophils (%) (Auto) 1.1, Basophils (%) (Auto) 0.9, Sodium Level 143, Potassium Level 3.8, Chloride Level 107, Carbon Dioxide Level 27, Anion Gap 9, Blood Urea Nitrogen 20H, Creatinine 0.6, Estimat Glomerular Filtration Rate , Glucose Level 96, Calcium Level 8.5, Phosphorus Level 3.2, Magnesium Level 2.3, Total Bilirubin 0.4, Aspartate Amino Transf (AST/SGOT) 21, Alanine Aminotransferase (ALT/SGPT) 29, Alkaline Phosphatase 43L, Total Protein 5.9L, Albumin 2.4L, Globulin 3.5, Albumin/Globulin Ratio 0.7L 09/28/18 08:13: Arterial Blood pH 7.569*H, Arterial Blood Partial Pressure CO2 26.5L, Arterial Blood Partial Pressure O2 150.4H, Arterial Blood HCO3 23.7, Arterial Blood Oxygen Saturation 98.5, Arterial Blood Base Excess 2.2H, Ian Test Positive Height (Feet): 5 Weight (Pounds): 176 General Appearance: no apparent distress EENT: other - vented Cardiovascular: normal rate Respiratory/Chest: decreased breath sounds Abdomen: soft, distended Objective no change Danilo Huber MD Sep 28, 2018 10:00
[2018-09-28] MEDS: Colistin for inhalation INH SCH ×2 (10:14→22:46)
[2018-09-28] MEDS ORDERED: Tubing IV Secondary IV ONE (10:39)
--- NOTE | 2018-09-28 11:12 | NUR ---
RESPIRATORY NOTE: pt extubated at 1110 per MD order. placed pt on 2L NC. pt in no resp distress at this time, no post stridor heard. will cont to monitor.
--- NOTE | 2018-09-28 11:15 | NUR ---
NURSE NOTES: Pt resting quietly in bed ,no resp distress presented,on 2L NC at this time,pt requested pain medication.will medic with Morphine Sulfate 4 mg IV.
[2018-09-28] MEDS: Morphine Sulfate 4mg/ml Inj (IV USE ONLY) IVP PRN ×2 (11:26→18:06)
--- NOTE | 2018-09-28 13:28 | NUR ---
NURSE NOTES: Pt remains stable,no resp distress noted,turned to RT side with 2 pillows,continue on 2 L NC .
--- NOTE | 2018-09-28 14:05 | Cardiac Electrophysiology PN ---
Assessment/Plan Assessment/Plan 1. 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 Chronic atrial fibrillation. Rate controlled off any antiarrhythmics. On Eliquis 5 mg bid. 3. Severe COPD. On Solu-Medrol. 4. Diastolic congestive heart failure. 5. Diabetes. 6. Left lung collapse. DYLAN RN Subjective Subjective In ICU just extubated Objective Last 24 Hour Vital Signs Date Time Temp Pulse Resp B/P (MAP) Pulse Ox O2 Delivery O2 Flow Rate FiO2 09/28/18 13:00 73 29 107/38 (61) 98 09/28/18 12:53 70 18 100 Nasal Cannula 2.0 28 09/28/18 12:42 70 18 98 Nasal Cannula 2.0 28 09/28/18 12:00 Mechanical Ventilator 2.0 Nasal Cannula 09/28/18 12:00 98.5 69 31 120/48 (72) 98 09/28/18 12:00 62 09/28/18 12:00 2.0 28 09/28/18 11:14 Nasal Cannula 2.0 28 09/28/18 11:14 100 Nasal Cannula 2.0 28 09/28/18 11:13 Nasal Cannula 2.0 28 09/28/18 11:10 2.0 28 09/28/18 11:00 63 102/49 (66) 09/28/18 10:35 72 23 40 09/28/18 10:34 67 27 100 Mechanical Ventilator 40 09/28/18 10:14 73 26 100 Mechanical Ventilator 40 09/28/18 10:00 62 26 102/49 (66) 100 09/28/18 09:02 63 19 40 09/28/18 09:00 40 09/28/18 09:00 65 26 125/57 (79) 100 09/28/18 09:00 100 09/28/18 08:00 67 09/28/18 08:00 40 09/28/18 08:00 98.5 61 23 125/44 (71) 100 09/28/18 08:00 Mechanical Ventilator 09/28/18 07:23 61 17 100 Mechanical Ventilator 40 09/28/18 07:11 61 18 100 Mechanical Ventilator 40 09/28/18 07:08 72 19 40 09/28/18 07:00 63 19 126/45 (72) 100 09/28/18 06:00 60 16 141/36 (71) 100 09/28/18 05:00 60 16 141/36 (71) 100 09/28/18 05:00 69 18 40 09/28/18 04:00 Mechanical Ventilator 09/28/18 04:00 40 09/28/18 04:00 61 09/28/18 04:00 98.0 60 16 141/36 (71) 100 09/28/18 03:10 69 26 40 09/28/18 03:00 60 16 141/36 (71) 100 09/28/18 02:00 61 16 144/44 (77) 100 09/28/18 01:00 63 16 141/44 (76) 100 09/28/18 00:55 61 16 100 Mechanical Ventilator 40 09/28/18 00:43 61 16 100 Mechanical Ventilator 40 09/28/18 00:43 61 16 40 09/28/18 00:00 40 09/28/18 00:00 Mechanical Ventilator 09/28/18 00:00 64 09/28/18 00:00 97.8 61 16 137/41 (73) 100 09/27/18 23:00 64 16 40 09/27/18 23:00 61 16 147/53 (84) 100 09/27/18 22:00 61 16 144/51 (82) 100 09/27/18 21:37 64 16 100 Mechanical Ventilator 40 09/27/18 21:27 40 09/27/18 21:27 74 23 100 Mechanical Ventilator 40 09/27/18 21:27 74 23 40 09/27/18 21:00 97.8 61 16 142/49 (80) 100 09/27/18 20:00 64 09/27/18 20:00 40 09/27/18 20:00 Mechanical Ventilator 09/27/18 20:00 97.8 64 16 140/60 (86) 100 09/27/18 19:33 68 25 100 Mechanical Ventilator 40 09/27/18 19:25 61 16 100 Mechanical Ventilator 40 09/27/18 19:25 61 16 40 09/27/18 19:00 61 16 140/57 (84) 100 09/27/18 18:00 70 20 139/51 (80) 100 09/27/18 17:43 97.9 09/27/18 17:09 74 17 40 09/27/18 17:00 73 16 127/66 (86) 100 09/27/18 16:00 40 09/27/18 16:00 79 09/27/18 16:00 97.9 68 16 140/48 (78) 100 09/27/18 16:00 Mechanical Ventilator 09/27/18 15:28 62 16 40 09/27/18 15:00 74 16 147/46 (79) 97 Intake and Output 09/27/18 09/28/18 19:00 07:00 Intake Total 1475.000 ml 655 ml Output Total 1310 ml 820 ml Balance 165.000 ml -165 ml Free Water 0 ml IV Total 275.000 ml 55 ml Tube Feeding 660 ml 600 ml Other 540 ml Output Urine Total 1310 ml 820 ml Laboratory Tests Test 09/28/18 04:10 09/28/18 08:13 09/28/18 12:50 White Blood Count 8.5 K/UL (4.8-10.8) Red Blood Count 3.51 M/UL (4.20-5.40) L Hemoglobin 8.9 G/DL (12.0-16.0) L Hematocrit 29.0 % (37.0-47.0) L Mean Corpuscular Volume 82 FL (80-99) Mean Corpuscular Hemoglobin 25.3 PG (27.0-31.0) L Mean Corpuscular Hemoglobin Concent 30.7 G/DL (32.0-36.0) L Red Cell Distribution Width 19.4 % (11.6-14.8) H Platelet Count 174 K/UL (150-450) Mean Platelet Volume 7.7 FL (6.5-10.1) Neutrophils (%) (Auto) 68.8 % (45.0-75.0) Lymphocytes (%) (Auto) 20.2 % (20.0-45.0) Monocytes (%) (Auto) 9.0 % (1.0-10.0) Eosinophils (%) (Auto) 1.1 % (0.0-3.0) Basophils (%) (Auto) 0.9 % (0.0-2.0) Sodium Level 143 MMOL/L (136-145) Potassium Level 3.8 MMOL/L (3.5-5.1) Chloride Level 107 MMOL/L (98-107) Carbon Dioxide Level 27 MMOL/L (21-32) Anion Gap 9 mmol/L (5-15) Blood Urea Nitrogen 20 mg/dL (7-18) H Creatinine 0.6 MG/DL (0.55-1.30) Estimat Glomerular Filtration Rate mL/min (>60) Glucose Level 96 MG/DL (74-106) Calcium Level 8.5 MG/DL (8.5-10.1) Phosphorus Level 3.2 MG/DL (2.5-4.9) Magnesium Level 2.3 MG/DL (1.8-2.4) Total Bilirubin 0.4 MG/DL (0.2-1.0) Aspartate Amino Transf (AST/SGOT) 21 U/L (15-37) Alanine Aminotransferase (ALT/SGPT) 29 U/L (12-78) Alkaline Phosphatase 43 U/L (46-116) L Total Protein 5.9 G/DL (6.4-8.2) L Albumin 2.4 G/DL (3.4-5.0) L Globulin 3.5 g/dL Albumin/Globulin Ratio 0.7 (1.0-2.7) L Arterial Blood pH 7.569 (7.350-7.450) Arterial Blood Partial Pressure CO2 26.5 mmHg (35.0-45.0) L Arterial Blood Partial Pressure O2 150.4 mmHg (75.0-100.0) H Arterial Blood HCO3 23.7 mmol/L (22.0-26.0) Arterial Blood Oxygen Saturation 98.5 % (95-100) Arterial Blood Base Excess 2.2 (-2-2) H Ian Test Positive Vancomycin Level Trough 9.1 ug/mL (5.0-12.0) Microbiology Date/Time Source Procedure Growth Status 09/26/18 12:00 Blood Blood Culture - Preliminary NO GROWTH AFTER 24 HOURS Resulted 09/26/18 11:50 Blood Blood Culture - Preliminary Gram Positive Cocci Resulted Objective HEAD AND NECK: Mild JVD. LUNGS: Coarse rhonchi bilaterally. Decrease breath sounds on the left CARDIOVASCULAR: Irregular S1 and S2 with no gallop. ABDOMEN: Soft. EXTREMITIES: No pitting edema. Yohan Milian MD Sep 28, 2018 14:05
--- NOTE | 2018-09-28 14:39 | Infectious Diseases Prog Note ---
Assessment/Plan Assessment/Plan Assessment: Low grade fever x1, SP Leukocytosis, SP Probable PNA -sp cx MSSA, ABC ( S cefepime, Meropenem) -09/24 CXR: There is persistent opacity at the left lung base. -09/21 CT chest: Completely atelectatic left lung. This is likely due to endobronchial occlusion by debris. However, a small pulmonary hilar mass may also be present. This finding was discussed by phone with Dr. Sierra previously. Small left pleural effusion. Trace right pleural effusion. Posterior and basilar atelectatic changes of the right lung. Single enlarged aortopulmonary window lymph node. This could be neoplastic or reactive. This is increased in size since prior study 03/13/2018. Right lung groundglass opacity, nonspecific but likely on the basis of mild pulmonary edema. Mild cardiomegaly. Pericardial effusion Probable UTI -09/24 u/a wbc tnct nit +, leuk +3; ucx>100k EColi Gram positive bacteremia- real vs contamination -09/24 Bcx 06/05 ConS, 09/26 06/03 : [facility] Hx of recurrent CONS bacteremia -07/28/18 Bcx 07/06 CONS; 07/29 Bcx Neg; 08/23 BCx neg -2d echo: no obvious vegetation -05/19/18 Bcx 3/ S. hominis sp hominis; 05/21 Bc xNeg 2d eCho: no vegetations. Focal aortic valve sclerosis with reduced cusp excursion. Thickened mitral valve leaflets with reduced excursion. 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, s/p Rx SP VDRF, 04/10 Sp extubated Legionella Ur Ag: Neg, Legionella IgM + / IgG - Scx: No sig growth Flu screen negative Acute on chronic respiratory failure s/p intubation 09/22, 09/28 extubated CHF and COPD exacerbation Atrial flutter dCHF COPD CAD s/p stents Hypertension Seizure disorder Schizophrenia Depression History of intraventricular pacemaker implantation GERD CVA/TIA b/l hip replacement hx of L DVT history of alcohol abuse hx of recurrent admissions hx of high grade CONS bacteremia SNF resident Plan: -Cont empiric Cefepime # for PNA and UTI and IV Vancomycin # ( may treat for Probable SBE, hx of recurrent CoNS bactremia ) for bacteremia pending ID and sensi and repeat Bcx - INH colistin d# 08/06 -Bcx x2 -f/u cx -Monitor CBC/CMP, temperatures -Cdiff if diarrhea - aspiration precautions Subjective Allergies: Coded Allergies: PIPERACILLIN (Unverified Allergy, Unknown, 05/21/18) tolerates cephalosporins TAZOBACTAM (Unverified Allergy, Unknown, 03/10/18) Subjective EXTUABTED TODAY Objective Vital Signs Last 24 Hour Vital Signs Date Time Temp Pulse Resp B/P (MAP) Pulse Ox O2 Delivery O2 Flow Rate FiO2 09/28/18 13:00 73 29 107/38 (61) 98 09/28/18 12:53 70 18 100 Nasal Cannula 2.0 28 09/28/18 12:42 70 18 98 Nasal Cannula 2.0 28 09/28/18 12:00 Mechanical Ventilator 2.0 Nasal Cannula 09/28/18 12:00 98.5 69 31 120/48 (72) 98 09/28/18 12:00 62 09/28/18 12:00 2.0 28 09/28/18 11:14 Nasal Cannula 2.0 28 09/28/18 11:14 100 Nasal Cannula 2.0 28 09/28/18 11:13 Nasal Cannula 2.0 28 09/28/18 11:10 2.0 28 09/28/18 11:00 63 102/49 (66) 09/28/18 10:35 72 23 40 09/28/18 10:34 67 27 100 Mechanical Ventilator 40 09/28/18 10:14 73 26 100 Mechanical Ventilator 40 09/28/18 10:00 62 26 102/49 (66) 100 09/28/18 09:02 63 19 40 09/28/18 09:00 40 09/28/18 09:00 65 26 125/57 (79) 100 09/28/18 09:00 100 09/28/18 08:00 67 09/28/18 08:00 40 09/28/18 08:00 98.5 61 23 125/44 (71) 100 09/28/18 08:00 Mechanical Ventilator 09/28/18 07:23 61 17 100 Mechanical Ventilator 40 09/28/18 07:11 61 18 100 Mechanical Ventilator 40 09/28/18 07:08 72 19 40 09/28/18 07:00 63 19 126/45 (72) 100 09/28/18 06:00 60 16 141/36 (71) 100 09/28/18 05:00 60 16 141/36 (71) 100 09/28/18 05:00 69 18 40 09/28/18 04:00 Mechanical Ventilator 09/28/18 04:00 40 09/28/18 04:00 61 09/28/18 04:00 98.0 60 16 141/36 (71) 100 09/28/18 03:10 69 26 40 09/28/18 03:00 60 16 141/36 (71) 100 09/28/18 02:00 61 16 144/44 (77) 100 09/28/18 01:00 63 16 141/44 (76) 100 09/28/18 00:55 61 16 100 Mechanical Ventilator 40 09/28/18 00:43 61 16 100 Mechanical Ventilator 40 09/28/18 00:43 61 16 40 09/28/18 00:00 40 09/28/18 00:00 Mechanical Ventilator 09/28/18 00:00 64 09/28/18 00:00 97.8 61 16 137/41 (73) 100 09/27/18 23:00 64 16 40 09/27/18 23:00 61 16 147/53 (84) 100 09/27/18 22:00 61 16 144/51 (82) 100 09/27/18 21:37 64 16 100 Mechanical Ventilator 40 09/27/18 21:27 40 09/27/18 21:27 74 23 100 Mechanical Ventilator 40 09/27/18 21:27 74 23 40 09/27/18 21:00 97.8 61 16 142/49 (80) 100 09/27/18 20:00 64 09/27/18 20:00 40 09/27/18 20:00 Mechanical Ventilator 09/27/18 20:00 97.8 64 16 140/60 (86) 100 09/27/18 19:33 68 25 100 Mechanical Ventilator 40 09/27/18 19:25 61 16 100 Mechanical Ventilator 40 09/27/18 19:25 61 16 40 09/27/18 19:00 61 16 140/57 (84) 100 09/27/18 18:00 70 20 139/51 (80) 100 09/27/18 17:43 97.9 09/27/18 17:09 74 17 40 09/27/18 17:00 73 16 127/66 (86) 100 09/27/18 16:00 40 09/27/18 16:00 79 09/27/18 16:00 97.9 68 16 140/48 (78) 100 09/27/18 16:00 Mechanical Ventilator 09/27/18 15:28 62 16 40 09/27/18 15:00 74 16 147/46 (79) 97 Height (Feet): 5 Weight (Pounds): 176 HEENT: mucous membranes moist Respiratory/Chest: normal breath sounds Cardiovascular: no gallop/murmur Abdomen: soft, non tender Microbiology Date/Time Source Procedure Growth Status 09/26/18 12:00 Blood Blood Culture - Preliminary NO GROWTH AFTER 24 HOURS Resulted 09/26/18 11:50 Blood Blood Culture - Preliminary Gram Positive Cocci Resulted Laboratory Tests Test 09/28/18 04:10 09/28/18 08:13 09/28/18 12:50 White Blood Count 8.5 K/UL (4.8-10.8) Red Blood Count 3.51 M/UL (4.20-5.40) L Hemoglobin 8.9 G/DL (12.0-16.0) L Hematocrit 29.0 % (37.0-47.0) L Mean Corpuscular Volume 82 FL (80-99) Mean Corpuscular Hemoglobin 25.3 PG (27.0-31.0) L Mean Corpuscular Hemoglobin Concent 30.7 G/DL (32.0-36.0) L Red Cell Distribution Width 19.4 % (11.6-14.8) H Platelet Count 174 K/UL (150-450) Mean Platelet Volume 7.7 FL (6.5-10.1) Neutrophils (%) (Auto) 68.8 % (45.0-75.0) Lymphocytes (%) (Auto) 20.2 % (20.0-45.0) Monocytes (%) (Auto) 9.0 % (1.0-10.0) Eosinophils (%) (Auto) 1.1 % (0.0-3.0) Basophils (%) (Auto) 0.9 % (0.0-2.0) Sodium Level 143 MMOL/L (136-145) Potassium Level 3.8 MMOL/L (3.5-5.1) Chloride Level 107 MMOL/L (98-107) Carbon Dioxide Level 27 MMOL/L (21-32) Anion Gap 9 mmol/L (5-15) Blood Urea Nitrogen 20 mg/dL (7-18) H Creatinine 0.6 MG/DL (0.55-1.30) Estimat Glomerular Filtration Rate mL/min (>60) Glucose Level 96 MG/DL (74-106) Calcium Level 8.5 MG/DL (8.5-10.1) Phosphorus Level 3.2 MG/DL (2.5-4.9) Magnesium Level 2.3 MG/DL (1.8-2.4) Total Bilirubin 0.4 MG/DL (0.2-1.0) Aspartate Amino Transf (AST/SGOT) 21 U/L (15-37) Alanine Aminotransferase (ALT/SGPT) 29 U/L (12-78) Alkaline Phosphatase 43 U/L (46-116) L Total Protein 5.9 G/DL (6.4-8.2) L Albumin 2.4 G/DL (3.4-5.0) L Globulin 3.5 g/dL Albumin/Globulin Ratio 0.7 (1.0-2.7) L Arterial Blood pH 7.569 (7.350-7.450) Arterial Blood Partial Pressure CO2 26.5 mmHg (35.0-45.0) L Arterial Blood Partial Pressure O2 150.4 mmHg (75.0-100.0) H Arterial Blood HCO3 23.7 mmol/L (22.0-26.0) Arterial Blood Oxygen Saturation 98.5 % (95-100) Arterial Blood Base Excess 2.2 (-2-2) H Ian Test Positive Vancomycin Level Trough 9.1 ug/mL (5.0-12.0) Current Medications Medications (Trade) Dose Ordered Sig/Ibrahima Route PRN Reason Start Time Stop Time Status Last Admin Dose Admin Acetaminophen (Tylenol) 650 mg Q4H PRN ORAL Mild Pain (Pain Scale 1-3) 09/22/18 12:47 10/21/18 12:46 09/22/18 20:57 Albuterol/ Ipratropium (Albuterol/ Ipratropium) 3 ml Q6HRT HHN 4/26/19 13:00 09/30/18 12:59 09/28/18 12:42 Apixaban (Eliquis) 5 mg BID ORAL 09/22/18 18:00 10/19/18 08:59 09/28/18 09:19 Cefepime HCl 1 gm/ Dextrose 55 ml @ 110 mls/hr Q24H IVPB 09/25/18 01:00 10/02/18 00:59 09/28/18 01:00 Colistimethate Sodium (Colistin *inhalation use only*) 150 mg Q12HR@10,22 INH 09/26/18 10:00 10/03/18 09:59 09/28/18 10:14 Dextrose (Dextrose 50%) 25 ml Q30M PRN IV Hypoglycemia 09/22/18 13:00 10/17/18 06:59 Dextrose (Dextrose 50%) 50 ml Q30M PRN IV Hypoglycemia 09/22/18 13:00 10/17/18 06:59 Docusate Sodium (Colace) 100 mg TID ORAL 09/22/18 13:00 10/19/18 08:59 09/28/18 14:31 Folic Acid (Folate) 5 mg DAILY ORAL 09/23/18 09:00 10/18/18 09:59 09/28/18 09:20 Furosemide (Lasix) 40 mg DAILY IV 09/26/18 09:00 10/26/18 08:59 09/28/18 09:18 Lorazepam (Ativan 2mg/ml 1ml) 2 mg Q4H PRN IV For Anxiety 09/22/18 13:00 09/29/18 12:59 09/26/18 01:14 Morphine Sulfate (Morphine Sulfate) 4 mg Q4H PRN IVP Severe pain(7-10) 09/22/18 12:58 09/29/18 12:57 09/28/18 11:26 Ondansetron HCl (Zofran) 4 mg Q6H PRN IVP Nausea & Vomiting 09/22/18 12:49 10/21/18 12:48 Pantoprazole (Protonix) 40 mg DAILY IV 09/23/18 09:00 10/23/18 08:59 09/28/18 09:18 Polyethylene Glycol (Miralax) 17 gm DAILYPRN PRN ORAL Constipation 09/22/18 12:50 10/21/18 12:49 Potassium Chloride (K-Dur) 40 meq TWICE A DAY NGT 09/27/18 12:45 10/27/18 12:44 09/28/18 09:18 Prednisone (predniSONE) 30 mg DAILY ORAL 09/28/18 09:00 10/20/18 08:59 09/28/18 09:27 Risperidone (RisperDAL) 1 mg BEDTIME ORAL 09/22/18 21:00 10/17/18 20:59 09/27/18 21:26 Thiamine HCl (Vitamin B1) 100 mg DAILY ORAL 09/23/18 09:00 10/20/18 08:59 09/28/18 09:25 Vancomycin HCl (Vanco rx to dose) 1 ea DAILY PRN MISC Per rx protocol 09/25/18 13:15 10/25/18 13:14 Vancomycin HCl 500 mg/Dextrose 110 ml @ 110 mls/hr Q12HR@0300,1500 IVPB 09/28/18 15:00 10/03/18 14:59 Juan Moeller MD Sep 28, 2018 14:39
--- NOTE | 2018-09-28 15:26 | NUR ---
NURSE NOTES: Dr Moeller at bedside,updated re pt's status.
[2018-09-28] MEDS: Vancomycin 500mg/D5W 110ml IVPB SCH ×2 (15:37)
--- NOTE | 2018-09-28 17:00 | NUR ---
NURSE NOTES: Pt stable no resp distress presented,2l NC tolerated,no seizure activity noted
--- NOTE | 2018-09-28 18:10 | NUR ---
NURSE NOTES: Pt very alert verbalized having pain on throat,pt S/p extubation,Morphin sulfate 4mg IV given,will continue to monitor pt.
--- NOTE | 2018-09-28 19:03 | NUR ---
CASE MANAGEMENT: REVIEW SI: COPD EXACERBATION . A-FLUTTER T 98.5 HR 69 RR 31 BP 120/48 98% MECH VENT FIO2 28 H/H 8.9/29.0 IS: VANCO IV Q12HR COLISTIN INH Q12HR LASIX IV QD CEFEPIME IV Q24HR ELIQUIS PO BID ICU STATUS DCP: PATIENT IS FROM [facility]
--- NOTE | 2018-09-28 19:09 | NUR ---
HAND-OFF: Report given to Francine OVALLES .
--- NOTE | 2018-09-28 19:45 | Cardiology Progress Note ---
Assessment/Plan Assessment/Plan 1. Bronchospasm. 2. Possible left-sided infiltrate or pneumonia. 3. Diastolic heart failure history. 4. Permanent atrial fibrillation. 5. lung collapse 6. hs of pacer in icu thomas vent f lung col,lapswe resolved vr seem fine bp is fien at time tiem abx extubated looks good on lasix watch bicarb Subjective Cardiovascular: Denies: chest pain, lightheadedness, palpitations Respiratory: Denies: shortness of breath Gastrointestinal/Abdominal: Denies: abdominal pain Genitourinary: Denies: burning Subjective extubated askign if her voice will return to normla Objective Last 24 Hour Vital Signs Date Time Temp Pulse Resp B/P (MAP) Pulse Ox O2 Delivery O2 Flow Rate FiO2 09/28/18 19:40 71 19 100 Nasal Cannula 2.0 28 09/28/18 19:07 Nasal Cannula 2.0 28 09/28/18 19:07 97 Nasal Cannula 2.0 28 09/28/18 19:05 71 19 97 Nasal Cannula 2.0 28 09/28/18 18:13 69 29 104/65 (78) 99 09/28/18 17:00 76 25 111/40 (63) 98 09/28/18 16:00 Mechanical Ventilator 2.0 Nasal Cannula 09/28/18 16:00 66 29 116/46 (69) 99 09/28/18 16:00 71 09/28/18 16:00 2.0 28 09/28/18 15:00 70 29 124/46 (72) 100 09/28/18 14:00 68 26 113/46 (68) 97 09/28/18 13:00 73 29 107/38 (61) 98 09/28/18 12:53 70 18 100 Nasal Cannula 2.0 09/28/18 12:42 70 18 98 Nasal Cannula 2.0 28 09/28/18 12:01 Mechanical Ventilator 2.0 Nasal Cannula 09/28/18 12:00 98.5 69 31 120/48 (72) 98 09/28/18 12:00 62 09/28/18 12:00 2.0 28 09/28/18 11:14 Nasal Cannula 2.0 28 09/28/18 11:14 100 Nasal Cannula 2.0 28 09/28/18 11:13 Nasal Cannula 2.0 28 4/29/19 11:10 2.0 28 09/28/18 11:00 63 102/49 (66) 09/28/18 10:35 72 23 40 09/28/18 10:34 67 27 100 Mechanical Ventilator 40 09/28/18 10:14 73 26 100 Mechanical Ventilator 40 09/28/18 10:00 62 26 102/49 (66) 100 09/28/18 09:02 63 19 40 09/28/18 09:00 40 09/28/18 09:00 65 26 125/57 (79) 100 09/28/18 09:00 100 09/28/18 08:00 67 09/28/18 08:00 40 09/28/18 08:00 98.5 61 23 125/44 (71) 100 09/28/18 08:00 Mechanical Ventilator 09/28/18 07:23 61 17 100 Mechanical Ventilator 40 09/28/18 07:11 61 18 100 Mechanical Ventilator 40 09/28/18 07:08 72 19 40 09/28/18 07:00 63 19 126/45 (72) 100 09/28/18 06:00 60 16 141/36 (71) 100 09/28/18 05:00 60 16 141/36 (71) 100 09/28/18 05:00 69 18 40 09/28/18 04:00 Mechanical Ventilator 09/28/18 04:00 40 09/28/18 04:00 61 09/28/18 04:00 98.0 60 16 141/36 (71) 100 09/28/18 03:10 69 26 40 09/28/18 03:00 60 16 141/36 (71) 100 09/28/18 02:00 61 16 144/44 (77) 100 09/28/18 01:00 63 16 141/44 (76) 100 09/28/18 00:55 61 16 100 Mechanical Ventilator 40 09/28/18 00:43 61 16 100 Mechanical Ventilator 40 09/28/18 00:43 61 16 40 09/28/18 00:00 40 09/28/18 00:00 Mechanical Ventilator 09/28/18 00:00 64 09/28/18 00:00 97.8 61 16 137/41 (73) 100 09/27/18 23:00 64 16 40 09/27/18 23:00 61 16 147/53 (84) 100 09/27/18 22:00 61 16 144/51 (82) 100 09/27/18 21:37 64 16 100 Mechanical Ventilator 40 09/27/18 21:27 40 09/27/18 21:27 74 23 100 Mechanical Ventilator 40 09/27/18 21:27 74 23 40 09/27/18 21:00 97.8 61 16 142/49 (80) 100 09/27/18 20:00 64 09/27/18 20:00 40 09/27/18 20:00 Mechanical Ventilator 09/27/18 20:00 97.8 64 16 140/60 (86) 100 General Appearance: no apparent distress, alert Neck: supple Cardiovascular: irregularly irregular Respiratory/Chest: lungs clear Abdomen: normal bowel sounds, non tender, soft Extremities: no swelling Intake and Output 09/27/18 09/28/18 19:00 07:00 Intake Total 1475.000 ml 655 ml Output Total 1310 ml 820 ml Balance 165.000 ml -165 ml Free Water 0 ml IV Total 275.000 ml 55 ml Tube Feeding 660 ml 600 ml Other 540 ml Output Urine Total 1310 ml 820 ml Laboratory Tests Test 09/28/18 04:10 09/28/18 08:13 09/28/18 12:50 White Blood Count 8.5 K/UL (4.8-10.8) Red Blood Count 3.51 M/UL (4.20-5.40) L Hemoglobin 8.9 G/DL (12.0-16.0) L Hematocrit 29.0 % (37.0-47.0) L Mean Corpuscular Volume 82 FL (80-99) Mean Corpuscular Hemoglobin 25.3 PG (27.0-31.0) L Mean Corpuscular Hemoglobin Concent 30.7 G/DL (32.0-36.0) L Red Cell Distribution Width 19.4 % (11.6-14.8) H Platelet Count 174 K/UL (150-450) Mean Platelet Volume 7.7 FL (6.5-10.1) Neutrophils (%) (Auto) 68.8 % (45.0-75.0) Lymphocytes (%) (Auto) 20.2 % (20.0-45.0) Monocytes (%) (Auto) 9.0 % (1.0-10.0) Eosinophils (%) (Auto) 1.1 % (0.0-3.0) Basophils (%) (Auto) 0.9 % (0.0-2.0) Sodium Level 143 MMOL/L (136-145) Potassium Level 3.8 MMOL/L (3.5-5.1) Chloride Level 107 MMOL/L (98-107) Carbon Dioxide Level 27 MMOL/L (21-32) Anion Gap 9 mmol/L (5-15) Blood Urea Nitrogen 20 mg/dL (7-18) H Creatinine 0.6 MG/DL (0.55-1.30) Estimat Glomerular Filtration Rate mL/min (>60) Glucose Level 96 MG/DL (74-106) Calcium Level 8.5 MG/DL (8.5-10.1) Phosphorus Level 3.2 MG/DL (2.5-4.9) Magnesium Level 2.3 MG/DL (1.8-2.4) Total Bilirubin 0.4 MG/DL (0.2-1.0) Aspartate Amino Transf (AST/SGOT) 21 U/L (15-37) Alanine Aminotransferase (ALT/SGPT) 29 U/L (12-78) Alkaline Phosphatase 43 U/L (46-116) L Total Protein 5.9 G/DL (6.4-8.2) L Albumin 2.4 G/DL (3.4-5.0) L Globulin 3.5 g/dL Albumin/Globulin Ratio 0.7 (1.0-2.7) L Arterial Blood pH 7.569 (7.350-7.450) Arterial Blood Partial Pressure CO2 26.5 mmHg (35.0-45.0) L Arterial Blood Partial Pressure O2 150.4 mmHg (75.0-100.0) H Arterial Blood HCO3 23.7 mmol/L (22.0-26.0) Arterial Blood Oxygen Saturation 98.5 % (95-100) Arterial Blood Base Excess 2.2 (-2-2) H Ian Test Positive Vancomycin Level Trough 9.1 ug/mL (5.0-12.0) Microbiology Date/Time Source Procedure Growth Status 09/26/18 12:00 Blood Blood Culture - Preliminary NO GROWTH AFTER 24 HOURS Resulted 09/26/18 11:50 Blood Blood Culture - Preliminary Gram Positive Cocci Resulted Akbar Reno MD Sep 28, 2018 19:45
--- NOTE | 2018-09-28 19:47 | Internal Med Progress Note ---
Subjective Date of Service: Sep 28, 2018 Physician Name Juan Dutta Attending Physician Yonathan Mendoza MD Current Medications Medications (Trade) Dose Ordered Sig/Ibrahima Route PRN Reason Start Time Stop Time Status Last Admin Dose Admin Acetaminophen (Tylenol) 650 mg Q4H PRN ORAL Mild Pain (Pain Scale 1-3) 09/22/18 12:47 10/21/18 12:46 09/22/18 20:57 Albuterol/ Ipratropium (Albuterol/ Ipratropium) 3 ml Q6HRT HHN 09/25/18 13:00 09/30/18 12:59 09/28/18 19:05 Apixaban (Eliquis) 5 mg BID ORAL 09/22/18 18:00 10/19/18 08:59 09/28/18 17:53 Cefepime HCl 1 gm/ Dextrose 55 ml @ 110 mls/hr Q24H IVPB 09/25/18 01:00 10/02/18 00:59 09/28/18 01:00 Colistimethate Sodium (Colistin *inhalation use only*) 150 mg Q12HR@10,22 INH 09/26/18 10:00 10/03/18 09:59 09/28/18 10:14 Dextrose (Dextrose 50%) 25 ml Q30M PRN IV Hypoglycemia 09/22/18 13:00 10/17/18 06:59 Dextrose (Dextrose 50%) 50 ml Q30M PRN IV Hypoglycemia 09/22/18 13:00 10/17/18 06:59 Docusate Sodium (Colace) 100 mg TID ORAL 09/22/18 13:00 10/19/18 08:59 09/28/18 17:53 Folic Acid (Folate) 5 mg DAILY ORAL 09/23/18 09:00 10/18/18 09:59 09/28/18 09:20 Furosemide (Lasix) 40 mg DAILY IV 09/26/18 09:00 10/26/18 08:59 09/28/18 09:18 Lorazepam (Ativan 2mg/ml 1ml) 2 mg Q4H PRN IV For Anxiety 09/22/18 13:00 09/29/18 12:59 09/26/18 01:14 Morphine Sulfate (Morphine Sulfate) 4 mg Q4H PRN IVP Severe pain(7-10) 09/22/18 12:58 09/29/18 12:57 09/28/18 18:06 Ondansetron HCl (Zofran) 4 mg Q6H PRN IVP Nausea & Vomiting 09/22/18 12:49 10/21/18 12:48 Pantoprazole (Protonix) 40 mg DAILY IV 09/23/18 09:00 10/23/18 08:59 09/28/18 09:18 Polyethylene Glycol (Miralax) 17 gm DAILYPRN PRN ORAL Constipation 09/22/18 12:50 10/21/18 12:49 Potassium Chloride (K-Dur) 40 meq TWICE A DAY NGT 09/27/18 12:45 10/27/18 12:44 09/28/18 17:53 Prednisone (predniSONE) 30 mg DAILY ORAL 09/28/18 09:00 10/20/18 08:59 09/28/18 09:27 Risperidone (RisperDAL) 1 mg BEDTIME ORAL 09/22/18 21:00 10/17/18 20:59 09/27/18 21:26 Thiamine HCl (Vitamin B1) 100 mg DAILY ORAL 09/23/18 09:00 10/20/18 08:59 09/28/18 09:25 Vancomycin HCl (Vanco rx to dose) 1 ea DAILY PRN MISC Per rx protocol 09/25/18 13:15 10/25/18 13:14 Vancomycin HCl 500 mg/Dextrose 110 ml @ 110 mls/hr Q12HR@0300,1500 IVPB 09/28/18 15:00 10/03/18 14:59 09/28/18 15:37 Allergies: Coded Allergies: PIPERACILLIN (Unverified Allergy, Unknown, 05/21/18) tolerates cephalosporins TAZOBACTAM (Unverified Allergy, Unknown, 03/10/18) ROS Limited/Unobtainable: Yes Subjective 77 YO F admitted for respiratory distress. Now left lung opacification. Extubated 09/28/18. Cover for Int Med-DR Mendoza. ICU Objective Last Vital Signs Date Time Temp Pulse Resp B/P (MAP) Pulse Ox O2 Delivery O2 Flow Rate FiO2 09/28/18 19:40 71 19 100 Nasal Cannula 2.0 28 09/28/18 18:13 104/65 (78) 09/28/18 12:00 98.5 Laboratory Tests Test 09/28/18 04:10 09/28/18 08:13 09/28/18 12:50 White Blood Count 8.5 K/UL (4.8-10.8) Red Blood Count 3.51 M/UL (4.20-5.40) L Hemoglobin 8.9 G/DL (12.0-16.0) L Hematocrit 29.0 % (37.0-47.0) L Mean Corpuscular Volume 82 FL (80-99) Mean Corpuscular Hemoglobin 25.3 PG (27.0-31.0) L Mean Corpuscular Hemoglobin Concent 30.7 G/DL (32.0-36.0) L Red Cell Distribution Width 19.4 % (11.6-14.8) H Platelet Count 174 K/UL (150-450) Mean Platelet Volume 7.7 FL (6.5-10.1) Neutrophils (%) (Auto) 68.8 % (45.0-75.0) Lymphocytes (%) (Auto) 20.2 % (20.0-45.0) Monocytes (%) (Auto) 9.0 % (1.0-10.0) Eosinophils (%) (Auto) 1.1 % (0.0-3.0) Basophils (%) (Auto) 0.9 % (0.0-2.0) Sodium Level 143 MMOL/L (136-145) Potassium Level 3.8 MMOL/L (3.5-5.1) Chloride Level 107 MMOL/L (98-107) Carbon Dioxide Level 27 MMOL/L (21-32) Anion Gap 9 mmol/L (5-15) Blood Urea Nitrogen 20 mg/dL (7-18) H Creatinine 0.6 MG/DL (0.55-1.30) Estimat Glomerular Filtration Rate mL/min (>60) Glucose Level 96 MG/DL (74-106) Calcium Level 8.5 MG/DL (8.5-10.1) Phosphorus Level 3.2 MG/DL (2.5-4.9) Magnesium Level 2.3 MG/DL (1.8-2.4) Total Bilirubin 0.4 MG/DL (0.2-1.0) Aspartate Amino Transf (AST/SGOT) 21 U/L (15-37) Alanine Aminotransferase (ALT/SGPT) 29 U/L (12-78) Alkaline Phosphatase 43 U/L (46-116) L Total Protein 5.9 G/DL (6.4-8.2) L Albumin 2.4 G/DL (3.4-5.0) L Globulin 3.5 g/dL Albumin/Globulin Ratio 0.7 (1.0-2.7) L Arterial Blood pH 7.569 (7.350-7.450) Arterial Blood Partial Pressure CO2 26.5 mmHg (35.0-45.0) L Arterial Blood Partial Pressure O2 150.4 mmHg (75.0-100.0) H Arterial Blood HCO3 23.7 mmol/L (22.0-26.0) Arterial Blood Oxygen Saturation 98.5 % (95-100) Arterial Blood Base Excess 2.2 (-2-2) H Ian Test Positive Vancomycin Level Trough 9.1 ug/mL (5.0-12.0) Microbiology Date/Time Source Procedure Growth Status 09/26/18 12:00 Blood Blood Culture - Preliminary NO GROWTH AFTER 24 HOURS Resulted 09/26/18 11:50 Blood Blood Culture - Preliminary Gram Positive Cocci Resulted Intake and Output 09/27/18 09/28/18 19:00 07:00 Intake Total 1475.000 ml 655 ml Output Total 1310 ml 820 ml Balance 165.000 ml -165 ml Free Water 0 ml IV Total 275.000 ml 55 ml Tube Feeding 660 ml 600 ml Other 540 ml Output Urine Total 1310 ml 820 ml Objective PHYSICAL EXAMINATION: GENERAL: The patient is a well-developed and well-nourished white female, who is in moderate respiratory distress. HEENT: Eyes, pupils are equal and responsive to light and accommodation. Extraocular movements are intact. NECK: Supple without lymphadenopathy. CHEST: Nasal Canula; Few rales in bilateral bases, otherwise, Lungs are clear to auscultation bilaterally without wheezes CARDIOVASCULAR: Regular rhythm and rate. S1 and S2 normal without murmurs, rubs, or gallops. ABDOMEN: Soft, nontender, and nondistended. Positive bowel sounds. No evidence of hepatosplenomegaly. Currently, no rebound or guarding noted. EXTREMITIES: Negative for clubbing, cyanosis, or edema. RECTAL/GENITAL: Refused. NEUROLOGIC: Cranial nerves II through XII are grossly intact without focal deficits. Motor strength is 5/5 bilaterally. Deep tendon reflexes are 2+ plantar. Assessment/Plan Assessment/Plan ASSESSMENT: This is a 77-year-old white female with: 1. Shortness of breath. 2. Hypoxia. 3. Acute on chronic congestive heart failure. 4. Atrial flutter. 5. Hyponatremia. 6. Chronic obstructive pulmonary disease. 7. Coronary artery disease. 8. Hypertension. 9. Seizure disorder. 10. Paranoid schizophrenia. 11. Intraventricular pacemaker 12. left lung opacification-collapse per CT TREATMENT: 1. Shortness of breath/congestive heart failure. Extubated 09/28/[address] Sierra[address] Cardiologyconsultation has been obtained with Dr. Milian. The patient is currently receiving intravenous Lasix. We will follow recommendation of Cardiology. BNP is elevated at over greater than 5000. An echocardiogram is pending. 2. Atrial flutter. Continue Eliquis as above. 3. Hyponatremia. The patient is currently receiving intravenous fluids. 4. Chronic obstructive pulmonary disease. Continue DuoNeb nebulized as above. The patient was initially placed on BiPAP in the emergency room. A Pulmonary consultation has been obtained with Dr. Mendel Sierra. 5. Hypertension. Continue Lasix as above. 6. Seizure disorder. The patient is currently off antiseizure medication. 7. Paranoid schizophrenia. Continue Risperdal as above. Juan Dutta MD Sep 28, 2018 19:47
--- NOTE | 2018-09-28 20:00 | NUR ---
NURSE NOTES: pt extubated tolerated well with 2l n/c o2 sat 100 o/o no acute resp distress noted reposition and suction iv site good on carla soft wrist restraints non complaint
--- NOTE | 2018-09-28 20:00 | NUR ---
NURSE NOTES: pt awake and alert was extubate
--- NOTE | 2018-09-28 22:00 | NUR ---
NURSE NOTES: pm care done reposition and suction sacral dressing dry and intact no distress noted
[2018-09-29] VITALS (22 sets, daily range): BP systolic 113–145; BP diastolic 31–82
--- NOTE | 2018-09-29 | NUR ---
NURSE NOTE: reposition and suction no resp distress noted
[2018-09-29] MEDS: Cefepime HCl 1 GM in D5W 55 ML IVPB SCH (00:54)
[2018-09-29] MEDS: Morphine Sulfate 4mg/ml Inj (IV USE ONLY) IVP PRN ×2 (00:58→09:24)
--- NOTE | 2018-09-29 01:00 | NUR ---
NURSE NOTES: c/o pain medicated with ms as order
[2018-09-29] MEDS: Albuterol/Ipratropium 3ml neb HHN SCH ×4 (01:15→19:48)
--- NOTE | 2018-09-29 02:00 | NUR ---
NURSE NOTES: asleep with relief of pain
[2018-09-29] MEDS: Vancomycin 500mg/D5W 110ml IVPB SCH ×4 (03:16→14:34)
--- NOTE | 2018-09-29 04:00 | NUR ---
NURSE NOTES: complete bed bath and wound care done reposition and suction iv infusing well site good Addendum: 09/29/18 at 0529 by RUFINO MENESES RN Amended: Links added.
--- NOTE | 2018-09-29 05:00 | NUR ---
NURSE NOTES: pt asking for anxiety and sleep medicated with ativan 2mg ivp
[2018-09-29] MEDS: LORazepam Inj 2mg/ml 1ml IV PRN (05:07)
[2018-09-29 05:51] LABS: BASOPHILS % (AUTO) 0.8 % (0.0-2.0); EOSINOPHILS % (AUTO) 1.5 % (0.0-3.0); HEMATOCRIT 28.5 % (37.0-47.0); HEMOGLOBIN 8.8 G/DL (12.0-16.0); LYMPHOCYTES % (AUTO) 16.2 % (20.0-45.0); MEAN CORPUSCULAR VOLUME 83 FL (80-99); MONOCYTES % (AUTO) 6.1 % (1.0-10.0); NEUTROPHILS % (AUTO) 75.3 % (45.0-75.0); PLATELET COUNT 185 K/UL (150-450); RED BLOOD COUNT 3.42 M/UL (4.20-5.40); RED CELL DISTRIBUTION WIDTH 19.9 % (11.6-14.8); WHITE BLOOD COUNT 9.5 K/UL (4.8-10.8)
--- NOTE | 2018-09-29 06:00 | NUR ---
NURSE NOTES: pt asleep no acute distress noted
[2018-09-29 06:19] LABS: ALANINE AMINOTRANSFERASE 34 U/L (12-78); ALBUMIN 2.5 G/DL (3.4-5.0); ALBUMIN/GLOBULIN RATIO 0.7 (1.0-2.7); ALKALINE PHOSPHATASE 45 U/L (46-116); ANION GAP 6 mmol/L (5-15); ASPARTATE AMINO TRANSFERASE 15 U/L (15-37); BILIRUBIN,TOTAL 0.3 MG/DL (0.2-1.0); BLOOD UREA NITROGEN 22 mg/dL (7-18); CALCIUM 8.5 MG/DL (8.5-10.1); CARBON DIOXIDE 29 MMOL/L (21-32); CHLORIDE 108 MMOL/L (98-107); CREATININE 0.5 MG/DL (0.55-1.30); PHOSPHORUS 4.1 MG/DL (2.5-4.9); POTASSIUM 4.5 MMOL/L (3.5-5.1); SODIUM 143 MMOL/L (136-145)
--- NOTE | 2018-09-29 06:29 | General Progress Note ---
Assessment/Plan Problem List: (1) COPD (chronic obstructive pulmonary disease) ICD Codes: J44.9 - Chronic obstructive pulmonary disease, unspecified SNOMED: 09624227 Qualifiers: Qualified Codes: J44.9 - Chronic obstructive pulmonary disease, unspecified (2) Hyponatremia ICD Codes: E87.1 - Hyponatremia SNOMED: 90052311 (3) HTN (hypertension) ICD Codes: I10 - Hypertension SNOMED: 08284246 Assessment/Plan: on Prednisone 30 mg daily electrolytes are normal continue excellent ICU care Subjective ROS Limited/Unobtainable: Yes Allergies: Coded Allergies: PIPERACILLIN (Unverified Allergy, Unknown, 05/21/18) tolerates cephalosporins TAZOBACTAM (Unverified Allergy, Unknown, 03/10/18) Subjective events noted extubated NGT in place Objective Last 24 Hour Vital Signs Date Time Temp Pulse Resp B/P (MAP) Pulse Ox O2 Delivery O2 Flow Rate FiO2 09/29/18 06:00 76 37 124/46 (72) 96 09/29/18 05:00 71 27 114/38 (63) 97 09/29/18 04:00 66 09/29/18 04:00 Mechanical Ventilator 2.0 Nasal Cannula 09/29/18 04:00 98.4 70 28 119/31 (60) 93 70 09/29/18 03:00 72 27 117/42 (67) 96 75 09/29/18 03:00 72 27 117/42 (67) 96 09/29/18 02:00 75 24 113/39 (63) 95 09/29/18 01:46 69 19 99 Nasal Cannula 2.0 28 09/29/18 01:16 65 19 95 Nasal Cannula 2.0 28 09/29/18 01:00 70 24 113/39 (63) 95 09/29/18 00:00 74 24 118/48 (71) 100 09/29/18 00:00 Mechanical Ventilator 2.0 Nasal Cannula 09/29/18 00:00 70 09/28/18 23:00 65 24 111/54 (73) 100 09/28/18 22:59 70 27 100 Nasal Cannula 2.0 28 09/28/18 22:46 64 25 99 Nasal Cannula 2.0 28 09/28/18 22:00 70 24 119/37 (64) 100 09/28/18 21:00 67 29 114/42 (66) 99 4/29/19 20:00 98.0 67 29 117/41 (66) 99 09/28/18 20:00 71 09/28/18 20:00 Mechanical Ventilator 2.0 Nasal Cannula 09/28/18 19:40 71 19 100 Nasal Cannula 2.0 28 09/28/18 19:07 Nasal Cannula 2.0 28 09/28/18 19:07 97 Nasal Cannula 2.0 28 09/28/18 19:05 71 19 97 Nasal Cannula 2.0 28 09/28/18 19:00 69 29 126/41 (69) 99 09/28/18 18:13 69 29 104/65 (78) 99 09/28/18 17:00 76 25 111/40 (63) 98 09/28/18 16:00 Mechanical Ventilator 2.0 Nasal Cannula 09/28/18 16:00 66 29 116/46 (69) 99 09/28/18 16:00 71 09/28/18 16:00 2.0 28 09/28/18 15:00 70 29 124/46 (72) 100 09/28/18 14:00 68 26 113/46 (68) 97 09/28/18 13:00 73 29 107/38 (61) 98 09/28/18 12:53 70 18 100 Nasal Cannula 2.0 28 09/28/18 12:42 70 18 98 Nasal Cannula 2.0 09/28/18 12:01 Mechanical Ventilator 2.0 Nasal Cannula 09/28/18 12:00 98.5 69 31 120/48 (72) 98 09/28/18 12:00 62 09/28/18 12:00 2.0 28 09/28/18 11:14 Nasal Cannula 2.0 28 09/28/18 11:14 100 Nasal Cannula 2.0 28 09/28/18 11:13 Nasal Cannula 2.0 28 09/28/18 11:10 2.0 28 09/28/18 11:00 63 102/49 (66) 09/28/18 10:35 72 23 40 09/28/18 10:34 67 27 100 Mechanical Ventilator 40 09/28/18 10:14 73 26 100 Mechanical Ventilator 40 09/28/18 10:00 62 26 102/49 (66) 100 09/28/18 09:02 63 19 40 09/28/18 09:00 40 09/28/18 09:00 65 26 125/57 (79) 100 09/28/18 09:00 100 09/28/18 08:00 67 09/28/18 08:00 40 09/28/18 08:00 98.5 61 23 125/44 (71) 100 09/28/18 08:00 Mechanical Ventilator 09/28/18 07:23 61 17 100 Mechanical Ventilator 40 09/28/18 07:11 61 18 100 Mechanical Ventilator 40 09/28/18 07:08 72 19 40 09/28/18 07:00 63 19 126/45 (72) 100 Intake and Output 09/28/18 09/29/18 19:00 07:00 Intake Total 1030 ml 815 ml Output Total 1380 ml 930 ml Balance -350 ml -115 ml Free Water 200 ml IV Total 165 ml Tube Feeding 600 ml 650 ml Other 230 ml Output Urine Total 1380 ml 930 ml Laboratory Tests 09/28/18 08:13: Arterial Blood pH 7.569*H, Arterial Blood Partial Pressure CO2 26.5L, Arterial Blood Partial Pressure O2 150.4H, Arterial Blood HCO3 23.7, Arterial Blood Oxygen Saturation 98.5, Arterial Blood Base Excess 2.2H, Ian Test Positive 09/28/18 12:50: Vancomycin Level Trough 9.1 09/29/18 04:40: White Blood Count 9.5, Red Blood Count 3.42L, Hemoglobin 8.8L, Hematocrit 28.5L , Mean Corpuscular Volume 83, Mean Corpuscular Hemoglobin 25.6L, Mean Corpuscular Hemoglobin Concent 30.7L, Red Cell Distribution Width 19.9H, Platelet Count 185, Mean Platelet Volume 8.6, Neutrophils (%) (Auto) 75.3H, Lymphocytes (%) (Auto) 16.2L, Monocytes (%) (Auto) 6.1, Eosinophils (%) (Auto) 1.5, Basophils (%) (Auto) 0.8, Sodium Level 143, Potassium Level 4.5, Chloride Level 108H, Carbon Dioxide Level 29, Anion Gap 6, Blood Urea Nitrogen 22H, Creatinine 0.5L, Estimat Glomerular Filtration Rate , Glucose Level 102, Calcium Level 8.5, Phosphorus Level 4.1, Magnesium Level 2.3, Total Bilirubin 0.3, Aspartate Amino Transf (AST/SGOT) 15, Alanine Aminotransferase (ALT/SGPT) 34, Alkaline Phosphatase 45L, Pro-B-Type Natriuretic Peptide 3414H, Total Protein 6.0L, Albumin 2.5L, Globulin 3.5, Albumin/Globulin Ratio 0.7L Height (Feet): 5 Weight (Pounds): 176 Neck: normal alignment Cardiovascular: normal rate Respiratory/Chest: decreased breath sounds Abdomen: normal bowel sounds Edema: no edema noted Arm (L), no edema noted Arm (R), no edema noted Leg (L), no edema noted Leg (R), no edema noted Pedal (L), no edema noted Pedal (R), no edema noted Generalized Objective Current Medications Medications (Trade) Dose Ordered Sig/Ibrahima Route PRN Reason Start Time Stop Time Status Last Admin Dose Admin Acetaminophen (Tylenol) 650 mg Q4H PRN ORAL Mild Pain (Pain Scale 1-3) 09/22/18 12:47 10/21/18 12:46 09/22/18 20:57 Albuterol/ Ipratropium (Albuterol/ Ipratropium) 3 ml Q6HRT HHN 09/25/18 13:00 09/30/18 12:59 09/29/18 01:15 Apixaban (Eliquis) 5 mg BID ORAL 09/22/18 18:00 10/19/18 08:59 09/28/18 17:53 Cefepime HCl 1 gm/ Dextrose 55 ml @ 110 mls/hr Q24H IVPB 09/25/18 01:00 10/02/18 00:59 09/29/18 00:54 Colistimethate Sodium (Colistin *inhalation use only*) 150 mg Q12HR@10,22 INH 09/26/18 10:00 10/03/18 09:59 09/28/18 22:46 Dextrose (Dextrose 50%) 25 ml Q30M PRN IV Hypoglycemia 09/22/18 13:00 10/17/18 06:59 Dextrose (Dextrose 50%) 50 ml Q30M PRN IV Hypoglycemia 09/22/18 13:00 10/17/18 06:59 Docusate Sodium (Colace) 100 mg TID ORAL 09/22/18 13:00 10/19/18 08:59 09/28/18 17:53 Folic Acid (Folate) 5 mg DAILY ORAL 09/23/18 09:00 10/18/18 09:59 09/28/18 09:20 Furosemide (Lasix) 40 mg DAILY IV 09/26/18 09:00 10/26/18 08:59 09/28/18 09:18 Lorazepam (Ativan 2mg/ml 1ml) 2 mg Q4H PRN IV For Anxiety 09/22/18 13:00 09/29/18 12:59 09/29/18 05:07 Morphine Sulfate (Morphine Sulfate) 4 mg Q4H PRN IVP Severe pain(7-10) 09/22/18 12:58 09/29/18 12:57 09/29/18 00:58 Ondansetron HCl (Zofran) 4 mg Q6H PRN IVP Nausea & Vomiting 09/22/18 12:49 10/21/18 12:48 Pantoprazole (Protonix) 40 mg DAILY IV 09/23/18 09:00 10/23/18 08:59 09/28/18 09:18 Polyethylene Glycol (Miralax) 17 gm DAILYPRN PRN ORAL Constipation 09/22/18 12:50 10/21/18 12:49 Potassium Chloride (K-Dur) 40 meq TWICE A DAY NGT 09/27/18 12:45 10/27/18 12:44 09/28/18 17:53 Prednisone (predniSONE) 30 mg DAILY ORAL 09/28/18 09:00 10/20/18 08:59 09/28/18 09:27 Risperidone (RisperDAL) 1 mg BEDTIME ORAL 09/22/18 21:00 10/17/18 20:59 09/28/18 21:23 Thiamine HCl (Vitamin B1) 100 mg DAILY ORAL 09/23/18 09:00 10/20/18 08:59 09/28/18 09:25 Vancomycin HCl (Vanco rx to dose) 1 ea DAILY PRN MISC Per rx protocol 09/25/18 13:15 10/25/18 13:14 Vancomycin HCl 500 mg/Dextrose 110 ml @ 110 mls/hr Q12HR@0300,1500 IVPB 09/28/18 15:00 10/03/18 14:59 09/29/18 03:16 Daniel Little MD Sep 29, 2018 06:29
--- NOTE | 2018-09-29 07:28 | NUR ---
HAND-OFF: Report given to jennifer mena using sbar.
--- NOTE | 2018-09-29 07:30 | NUR ---
NURSE NOTES: Report received from Francine OVALLES.Pt sleeping in bed ,noted no resp distress on 2L NC,opens eyes spontaneously with verbal command ,denies any c/o chest pain or discomfort AFIB on the monitor,NGTF Glucerna 1.2 at 55 ml/hr,no residual noted,in placed per auscultation,López cath draining yellow urine,IV site to upper LFA appears red and infiltrated,,SR up x2 HOB elevated,bed lock in lowest position,will continue with plans of care.
--- NOTE | 2018-09-29 08:38 | NUR ---
RADIOLOGY DEPT., CHEST X-RAY DONE.-P.DYE
[2018-09-29] MEDS: Pantoprazole Inj IV SCH (09:17)
[2018-09-29] MEDS: Docusate 100mg/10ml Liq ORAL SCH ×3 (09:18→17:59)
[2018-09-29] MEDS: Eliquis 2.5mg tablet ORAL SCH (09:19)
[2018-09-29] MEDS: Thiamine 100mg tab ORAL SCH (09:19)
--- NOTE | 2018-09-29 09:21 | Pulmonolgy Critical Care Note ---
Critical Care - Asmt/Plan Problems: (1) Respiratory failure, acute (2) Collapse of left lung Assessment & Plan: resolved (3) Atrial fibrillation with RVR (4) Hyponatremia (5) COPD (chronic obstructive pulmonary disease) (6) Anemia, chronic disease Respiratory: monitor respiratory rate, adjust FIO2, other - tolerating extubation Cardiac: continue to monitor HR/BP Renal: F/U I&O, keep IV fluid Infectious Disease: check cultures Gastrointestinal: continue feedings/current rate Endocrine: check HgA1C, continue sliding scale insulin Neurologic: PRN Ativan, PRN Morphine Prophylaxis: Heparin Disposition: keep in ICU Time Spent (Minutes): 40 Discussed with: nurses, 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 - Objective Last 24 Hour Vital Signs Date Time Temp Pulse Resp B/P (MAP) Pulse Ox O2 Delivery O2 Flow Rate FiO2 09/29/18 08:00 98.0 76 33 128/52 (77) 94 09/29/18 08:00 Nasal Cannula 2.0 Nasal Cannula 2.0 09/29/18 07:10 77 18 99 Nasal Cannula 2.0 28 09/29/18 07:00 98 Nasal Cannula 2.0 28 09/29/18 07:00 78 20 98 Nasal Cannula 2.0 28 09/29/18 07:00 70 37 124/41 (68) 96 09/29/18 07:00 Nasal Cannula 2.0 28 09/29/18 06:00 76 37 124/46 (72) 96 09/29/18 05:00 71 27 114/38 (63) 97 09/29/18 04:00 66 09/29/18 04:00 Mechanical Ventilator 2.0 Nasal Cannula 09/29/18 04:00 98.4 70 28 119/31 (60) 93 70 09/29/18 03:00 72 27 117/42 (67) 96 75 09/29/18 03:00 72 27 117/42 (67) 96 09/29/18 02:00 75 24 113/39 (63) 95 09/29/18 01:46 69 19 99 Nasal Cannula 2.0 28 09/29/18 01:16 65 19 95 Nasal Cannula 2.0 28 09/29/18 01:00 70 24 113/39 (63) 95 09/29/18 00:00 74 24 118/48 (71) 100 09/29/18 00:00 Mechanical Ventilator 2.0 Nasal Cannula 09/29/18 00:00 70 09/28/18 23:00 65 24 111/54 (73) 100 09/28/18 22:59 70 27 100 Nasal Cannula 2.0 28 09/28/18 22:46 64 25 99 Nasal Cannula 2.0 28 09/28/18 22:00 70 24 119/37 (64) 100 09/28/18 21:00 67 29 114/42 (66) 99 09/28/18 20:00 98.0 29 117/41 (66) 99 09/28/18 20:00 71 09/28/18 20:00 Mechanical Ventilator 2.0 Nasal Cannula 09/28/18 19:40 71 19 100 Nasal Cannula 2.0 28 09/28/18 19:07 Nasal Cannula 2.0 28 09/28/18 19:07 97 Nasal Cannula 2.0 28 09/28/18 19:05 71 19 97 Nasal Cannula 2.0 28 09/28/18 19:00 69 29 126/41 (69) 99 09/28/18 18:13 69 29 104/65 (78) 99 09/28/18 17:00 76 25 111/40 (63) 98 09/28/18 16:00 Mechanical Ventilator 2.0 Nasal Cannula 09/28/18 16:00 66 29 116/46 (69) 99 09/28/18 16:00 71 09/28/18 16:00 2.0 28 09/28/18 15:00 70 29 124/46 (72) 100 09/28/18 14:00 68 26 113/46 (68) 97 09/28/18 13:00 73 29 107/38 (61) 98 09/28/18 12:53 70 18 100 Nasal Cannula 2.0 09/28/18 12:42 70 18 98 Nasal Cannula 2.0 28 09/28/18 12:01 Mechanical Ventilator 2.0 Nasal Cannula 09/28/18 12:00 98.5 69 31 120/48 (72) 98 09/28/18 12:00 62 09/28/18 12:00 2.0 28 09/28/18 11:14 Nasal Cannula 2.0 28 09/28/18 11:14 100 Nasal Cannula 2.0 28 09/28/18 11:13 Nasal Cannula 2.0 28 09/28/18 11:10 2.0 28 09/28/18 11:00 63 102/49 (66) 09/28/18 10:35 72 23 40 09/28/18 10:34 67 27 100 Mechanical Ventilator 40 09/28/18 10:14 73 26 100 Mechanical Ventilator 40 09/28/18 10:00 62 26 102/49 (66) 100 Status: awake Condition: critical, improving HEENT: atraumatic Neck: full ROM Lungs: clear Heart: HR/BP stable Abdomen: soft, active bowel sounds Extremities: no C/C/E, edema Decubiti: location Micro: Microbiology Date/Time Source Procedure Growth Status 09/26/18 12:00 Blood Blood Culture - Preliminary NO GROWTH AFTER 24 HOURS Resulted 09/26/18 11:50 Blood Blood Culture - Preliminary Staphylococcus Species Resulted Critical Care - Subjective ROS Limited/Unobtainable: Yes Condition: critical EKG Rhythm: Sinus Rhythm FI02: 28 Vent Support Breath Rate: 16 Vent Support Mode: CPAP Vent Tidal Volume: 600 Sputum Amount: None PEEP: 5.0 PIP: 14 Tube Feeding Amount: 50 I&O: Intake and Output 09/28/18 09/29/18 18:59 06:59 Intake Total 1030 ml 765 ml Output Total 1355 ml 1030 ml Balance -325 ml -265 ml Free Water 200 ml IV Total 165 ml Tube Feeding 600 ml 600 ml Other 230 ml Output Urine Total 1355 ml 1030 ml CXR: both lungs are clear ET-Tube: 7.5 ET Position: 22 Labs: Laboratory Tests Test 09/28/18 12:50 09/29/18 04:40 09/29/18 08:00 Vancomycin Level Trough 9.1 ug/mL (5.0-12.0) White Blood Count 9.5 K/UL (4.8-10.8) Red Blood Count 3.42 M/UL (4.20-5.40) L Hemoglobin 8.8 G/DL (12.0-16.0) L Hematocrit 28.5 % (37.0-47.0) L Mean Corpuscular Volume 83 FL (80-99) Mean Corpuscular Hemoglobin 25.6 PG (27.0-31.0) L Mean Corpuscular Hemoglobin Concent 30.7 G/DL (32.0-36.0) L Red Cell Distribution Width 19.9 % (11.6-14.8) H Platelet Count 185 K/UL (150-450) Mean Platelet Volume 8.6 FL (6.5-10.1) Neutrophils (%) (Auto) 75.3 % (45.0-75.0) H Lymphocytes (%) (Auto) 16.2 % (20.0-45.0) L Monocytes (%) (Auto) 6.1 % (1.0-10.0) Eosinophils (%) (Auto) 1.5 % (0.0-3.0) Basophils (%) (Auto) 0.8 % (0.0-2.0) Sodium Level 143 MMOL/L (136-145) Potassium Level 4.5 MMOL/L (3.5-5.1) Chloride Level 108 MMOL/L (98-107) H Carbon Dioxide Level 29 MMOL/L (21-32) Anion Gap 6 mmol/L (5-15) Blood Urea Nitrogen 22 mg/dL (7-18) H Creatinine 0.5 MG/DL (0.55-1.30) L Estimat Glomerular Filtration Rate mL/min (>60) Glucose Level 102 MG/DL (74-106) Calcium Level 8.5 MG/DL (8.5-10.1) Phosphorus Level 4.1 MG/DL (2.5-4.9) Magnesium Level 2.3 MG/DL (1.8-2.4) Total Bilirubin 0.3 MG/DL (0.2-1.0) Aspartate Amino Transf (AST/SGOT) 15 U/L (15-37) Alanine Aminotransferase (ALT/SGPT) 34 U/L (12-78) Alkaline Phosphatase 45 U/L (46-116) L Pro-B-Type Natriuretic Peptide 3414 pg/mL (0-125) H Total Protein 6.0 G/DL (6.4-8.2) L Albumin 2.5 G/DL (3.4-5.0) L Globulin 3.5 g/dL Albumin/Globulin Ratio 0.7 (1.0-2.7) L Arterial Blood pH 7.424 (7.350-7.450) Arterial Blood Partial Pressure CO2 43.8 mmHg (35.0-45.0) Arterial Blood Partial Pressure O2 65.3 mmHg (75.0-100.0) L Arterial Blood HCO3 28.0 mmol/L (22.0-26.0) H Arterial Blood Oxygen Saturation 88.5 % (95-100) *L Arterial Blood Base Excess 3.2 (-2-2) H Ian Test Positive Mendel Sierra MD Sep 29, 2018 09:21
--- NOTE | 2018-09-29 09:25 | NUR ---
NURSE NOTES: Pt S/P extubation,c/o pain to throat when swallowing and coughing,requests for pain medic ,given Morphine Sulfate 4mg IVP.
[2018-09-29] MEDS: Colistin for inhalation INH SCH ×2 (10:18→23:01)
--- NOTE | 2018-09-29 10:24 | NUR ---
ST NOTES: REFERRED BY DR AGGARWAL FOR SWALLOW EVAL IN ICU,SEE SWALLOW EVAL REPORT. DYSPHAGIA RISK FACTORS FOR THIS 77 Y.O.F.: ACUTE COPD, PNA, RESP DISTRESS, HYPERCAPNIA, RAPID RESPONSE AND INTUBATED 09/22/18 TO 09/28/18 ONE DAY POST EXTUBATION. ON 2 LITERS NC RR 33 HIGH AND LOW BP 128/52 (77). H/O DYSPHAGIA, CVA, DEMENTIA, EPILEPSY, COPD, PNA, RESP D/O, CARDIAC D/O PSYCH (SCHIZO/MDD), GERD, DM, PULMONARY EDEMA AT SNF ON A NCS NS MECH SOFT CHOPPED DIET AND THIN LIQUIDS SEEING ST FOR SWALLOW TX POLST STATES OK FOR TF IF NEEDS HAS NGT WITH GLUCERNA FORMULA. SEEN AT [facility] 08/28/18 PLACED ON A MODIF SOFT CHEW ND THIN LIQUIDS [place] [facility] [facility] SOFT FINELY CHOPPED THIN LIQ POOR TO FAIR INTAKE 25/50/75%. 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
--- NOTE | 2018-09-29 11:00 | NUR ---
NURSE NOTES: Pt sleeping most of the time,awakens on and off,turned and repositioned only to rt side.
--- NOTE | 2018-09-29 11:13 | Diagnostic Imaging Report ---
Indication: Dyspnea Comparison: 09/28/2018 A single view chest radiograph was obtained. Findings: Patient has been extubated. NG tube is in good position. There is a probable left pleural effusion. Hazy opacity projected over the right lung may be soft tissue attenuation. There is some rotation on this study. IMPRESSION: Postextubation. No significant change
--- NOTE | 2018-09-29 12:12 | NUR ---
FUR GLOSSERPLAY READER SI: S/P EXTUBATION COPD T. 98.1 HR 76 RR 33 B/P 128/52 2L NC O2 SAT @ 98% PH 7.42 PCO2 43.8 PO2 65.3 HCO3 28.0 O2 SAT 88.5 BNP 3414 BUN 22 CXR= LEFT PLEURAL EFFUSION IS: LASIX IV VANCO IV CEFEPIME IV COLISTIN INH PREDNISONE NGT SWALLOW EVAL ICU STATUS
--- NOTE | 2018-09-29 12:14 | NUR ---
RD ASSESSMENT & RECOMMENDATIONS SEE CARE ACTIVITY FOR COMPLETE ASSESSMENT DAILY ESTIMATED NEEDS: Needs based on Pulmonary, wound/ 54kg abw 25-30 kcals/kg 2102-1747 total kcals 1.25-1.5 g protein/kg 68-81 g total protein 25-30 mL/kg 6722-2255 total fluid mLs NUTRITION DIAGNOSIS: 1) Altered nutrition related lab values R/T clinical condition as evidenced by critically elev pCO2, now wnl, low pH (now wnl), elev BNP (7412->3414), low K (2.5*-> wnl), low phos (1.8->wnl), low Mg (1.6->wnl). 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 3) Increased kcal/prot intake needs R/T wound healing as evidenced by partial thickness wounds to sacrum and daron-anal area, non-blanchable erythema to R heel and plantar R heel. CURRENT TF:Glucerna 1.2 @55ml/hr x24 hrs PO DIET RECOMMENDATIONS: WHEN SAFE FOR PO INTAKE -> LOW NA/ texture per FINAL INSPECTOR TRUCK TRAILER ENTERAL NUTRITION RECOMMENDATIONS: Glucerna 1.2 @55ml/hr x24 hrs to provide 1320ml, 1584 kcal, 79g pro, 1063ml free H2O - Maintain current TF - Flush per MD. HOB over 30 degrees ADDITIONAL RECOMMENDATIONS: * Calibrated bedscale wt * Monitor BG on prednisone, niss prn * Monitor lytes, replete as needed * Wound care: add MVI 1 tab QD, VIT C 250mg QD, Cristian 1pkt BID . . .
--- NOTE | 2018-09-29 13:30 | NUR ---
NURSE NOTES: NO resp distress noted,stable continue to sleep
--- NOTE | 2018-09-29 15:31 | Cardiac Electrophysiology PN ---
Assessment/Plan Assessment/Plan 1. 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 Chronic atrial fibrillation. Rate controlled off any antiarrhythmics. On Eliquis 5 mg bid. 3. Severe COPD. On Solu-Medrol. 4. Diastolic congestive heart failure. 5. Diabetes. 6. Left lung collapse. Extubated 7. Dysphagia, swallow eval peding DYLAN RN Subjective Subjective In ICU extubated. Awaiting swallow eval Objective Last 24 Hour Vital Signs Date Time Temp Pulse Resp B/P (MAP) Pulse Ox O2 Delivery O2 Flow Rate FiO2 09/29/18 15:00 59 32 113/53 (73) 94 09/29/18 13:40 68 18 100 Nasal Cannula 2.0 28 09/29/18 13:30 70 18 98 Nasal Cannula 2.0 28 09/29/18 12:08 98.5 68 25 124/52 (76) 98 09/29/18 12:00 69 09/29/18 12:00 Nasal Cannula 2.0 Nasal Cannula 2.0 09/29/18 11:00 69 30 117/44 (68) 97 09/29/18 10:24 70 20 100 Nasal Cannula 2.0 28 09/29/18 10:00 70 20 96 Nasal Cannula 2.0 28 09/29/18 10:00 73 27 136/68 (90) 98 09/29/18 09:00 76 33 145/74 (97) 96 09/29/18 08:00 98.0 76 33 128/52 (77) 94 09/29/18 08:00 85 09/29/18 08:00 Nasal Cannula 2.0 Nasal Cannula 2.0 09/29/18 07:10 77 18 99 Nasal Cannula 2.0 28 09/29/18 07:00 98 Nasal Cannula 2.0 28 09/29/18 07:00 78 20 98 Nasal Cannula 2.0 28 09/29/18 07:00 70 37 124/41 (68) 96 09/29/18 07:00 Nasal Cannula 2.0 28 09/29/18 06:00 76 37 124/46 (72) 96 09/29/18 05:00 71 27 114/38 (63) 97 09/29/18 04:00 66 09/29/18 04:00 Mechanical Ventilator 2.0 Nasal Cannula 09/29/18 04:00 98.4 70 28 119/31 (60) 93 70 4/30/19 03:00 72 27 117/42 (67) 96 75 09/29/18 03:00 72 27 117/42 (67) 96 09/29/18 02:00 75 24 113/39 (63) 95 09/29/18 01:46 69 19 99 Nasal Cannula 2.0 28 09/29/18 01:16 65 19 95 Nasal Cannula 2.0 28 09/29/18 01:00 70 24 113/39 (63) 95 09/29/18 00:00 74 24 118/48 (71) 100 09/29/18 00:00 Mechanical Ventilator 2.0 Nasal Cannula 09/29/18 00:00 70 09/28/18 23:00 65 24 111/54 (73) 100 09/28/18 22:59 70 27 100 Nasal Cannula 2.0 28 09/28/18 22:46 64 25 99 Nasal Cannula 2.0 28 09/28/18 22:00 70 24 119/37 (64) 100 09/28/18 21:00 67 29 114/42 (66) 99 09/28/18 20:00 98.0 67 29 117/41 (66) 99 09/28/18 20:00 71 09/28/18 20:00 Mechanical Ventilator 2.0 Nasal Cannula 09/28/18 19:40 71 19 100 Nasal Cannula 2.0 28 09/28/18 19:07 Nasal Cannula 2.0 28 09/28/18 19:07 97 Nasal Cannula 2.0 28 09/28/18 19:05 71 19 97 Nasal Cannula 2.0 28 09/28/18 19:00 69 29 126/41 (69) 99 09/28/18 18:13 69 29 104/65 (78) 99 09/28/18 17:00 76 25 111/40 (63) 98 09/28/18 16:01 Nasal Cannula 2.0 Nasal Cannula 2.0 09/28/18 16:00 66 29 116/46 (69) 99 09/28/18 16:00 71 09/28/18 16:00 2.0 28 Intake and Output 09/28/18 09/29/18 19:00 07:00 Intake Total 1195 ml 765 ml Output Total 1750 ml 990 ml Balance -555 ml -225 ml Free Water 200 ml IV Total 165 ml Tube Feeding 765 ml 600 ml Other 230 ml Output Urine Total 1750 ml 990 ml Laboratory Tests Test 09/29/18 04:40 09/29/18 08:00 White Blood Count 9.5 K/UL (4.8-10.8) Red Blood Count 3.42 M/UL (4.20-5.40) L Hemoglobin 8.8 G/DL (12.0-16.0) L Hematocrit 28.5 % (37.0-47.0) L Mean Corpuscular Volume 83 FL (80-99) Mean Corpuscular Hemoglobin 25.6 PG (27.0-31.0) L Mean Corpuscular Hemoglobin Concent 30.7 G/DL (32.0-36.0) L Red Cell Distribution Width 19.9 % (11.6-14.8) H Platelet Count 185 K/UL (150-450) Mean Platelet Volume 8.6 FL (6.5-10.1) Neutrophils (%) (Auto) 75.3 % (45.0-75.0) H Lymphocytes (%) (Auto) 16.2 % (20.0-45.0) L Monocytes (%) (Auto) 6.1 % (1.0-10.0) Eosinophils (%) (Auto) 1.5 % (0.0-3.0) Basophils (%) (Auto) 0.8 % (0.0-2.0) Sodium Level 143 MMOL/L (136-145) Potassium Level 4.5 MMOL/L (3.5-5.1) Chloride Level 108 MMOL/L (98-107) H Carbon Dioxide Level 29 MMOL/L (21-32) Anion Gap 6 mmol/L (5-15) Blood Urea Nitrogen 22 mg/dL (7-18) H Creatinine 0.5 MG/DL (0.55-1.30) L Estimat Glomerular Filtration Rate mL/min (>60) Glucose Level 102 MG/DL (74-106) Calcium Level 8.5 MG/DL (8.5-10.1) Phosphorus Level 4.1 MG/DL (2.5-4.9) Magnesium Level 2.3 MG/DL (1.8-2.4) Total Bilirubin 0.3 MG/DL (0.2-1.0) Aspartate Amino Transf (AST/SGOT) 15 U/L (15-37) Alanine Aminotransferase (ALT/SGPT) 34 U/L (12-78) Alkaline Phosphatase 45 U/L (46-116) L Pro-B-Type Natriuretic Peptide 3414 pg/mL (0-125) H Total Protein 6.0 G/DL (6.4-8.2) L Albumin 2.5 G/DL (3.4-5.0) L Globulin 3.5 g/dL Albumin/Globulin Ratio 0.7 (1.0-2.7) L Arterial Blood pH 7.424 (7.350-7.450) Arterial Blood Partial Pressure CO2 43.8 mmHg (35.0-45.0) Arterial Blood Partial Pressure O2 65.3 mmHg (75.0-100.0) L Arterial Blood HCO3 28.0 mmol/L (22.0-26.0) H Arterial Blood Oxygen Saturation 88.5 % (95-100) *L Arterial Blood Base Excess 3.2 (-2-2) H Ian Test Positive Objective HEAD AND NECK: Mild JVD. LUNGS: Coarse rhonchi bilaterally. Decrease breath sounds on the left CARDIOVASCULAR: Irregular S1 and S2 with no gallop. ABDOMEN: Soft. EXTREMITIES: No edema. Yohan Milian MD Sep 29, 2018 15:31
--- NOTE | 2018-09-29 15:58 | Nephrology Progress Note ---
Assessment/Plan Problem List: (1) Respiratory failure, acute (2) Hyponatremia (3) Seizure disorder (4) Acute diastolic CHF (congestive heart failure) (5) COPD (chronic obstructive pulmonary disease) (6) Pacemaker Assessment Now extubated HypoNatremia ? Etiology: depletional / Diuretics / SIADH ... bronchoscopy for left lung collapse Acute respiratory failure on BIPAP- COPD Encephalopathy due to high CO2 Pacemaker UTI Low MCV Anemia Hypoalbuminemia EjFx 55% last admission h/o Atfib Plan K supplement as needed taper steroid now extubated since 09/28 Off Diamox for now López PRN lasix IV iron monitor lytes Anemia clinton per orders Subjective ROS Limited/Unobtainable: No Objective Objective Last 24 Hour Vital Signs Date Time Temp Pulse Resp B/P (MAP) Pulse Ox O2 Delivery O2 Flow Rate FiO2 09/29/18 15:00 59 32 113/53 (73) 94 09/29/18 13:40 68 18 100 Nasal Cannula 2.0 28 09/29/18 13:30 70 18 98 Nasal Cannula 2.0 28 09/29/18 12:08 98.5 68 25 124/52 (76) 98 09/29/18 12:00 69 09/29/18 12:00 Nasal Cannula 2.0 Nasal Cannula 2.0 09/29/18 11:00 69 30 117/44 (68) 97 09/29/18 10:24 70 20 100 Nasal Cannula 2.0 28 09/29/18 10:00 70 20 96 Nasal Cannula 2.0 28 09/29/18 10:00 73 27 136/68 (90) 98 09/29/18 09:00 76 33 145/74 (97) 96 09/29/18 08:00 98.0 76 33 128/52 (77) 94 09/29/18 08:00 85 09/29/18 08:00 Nasal Cannula 2.0 Nasal Cannula 2.0 09/29/18 07:10 77 18 99 Nasal Cannula 2.0 28 09/29/18 07:00 98 Nasal Cannula 2.0 28 09/29/18 07:00 78 20 98 Nasal Cannula 2.0 28 09/29/18 07:00 70 37 124/41 (68) 96 09/29/18 07:00 Nasal Cannula 2.0 28 09/29/18 06:00 76 37 124/46 (72) 96 09/29/18 05:00 71 27 114/38 (63) 97 09/29/18 04:00 66 09/29/18 04:00 Mechanical Ventilator 2.0 Nasal Cannula 09/29/18 04:00 98.4 70 28 119/31 (60) 93 70 09/29/18 03:00 72 27 117/42 (67) 96 75 09/29/18 03:00 72 27 117/42 (67) 96 09/29/18 02:00 75 24 113/39 (63) 95 09/29/18 01:46 69 19 99 Nasal Cannula 2.0 28 09/29/18 01:16 65 19 95 Nasal Cannula 2.0 28 09/29/18 01:00 70 24 113/39 (63) 95 09/29/18 00:00 74 24 118/48 (71) 100 09/29/18 00:00 Mechanical Ventilator 2.0 Nasal Cannula 09/29/18 00:00 70 09/28/18 23:00 65 24 111/54 (73) 100 09/28/18 22:59 70 27 100 Nasal Cannula 2.0 28 09/28/18 22:46 64 25 99 Nasal Cannula 2.0 28 09/28/18 22:00 70 24 119/37 (64) 100 09/28/18 21:00 67 29 114/42 (66) 99 09/28/18 20:00 98.0 67 29 117/41 (66) 99 09/28/18 20:00 71 09/28/18 20:00 Mechanical Ventilator 2.0 Nasal Cannula 09/28/18 19:40 71 19 100 Nasal Cannula 2.0 28 09/28/18 19:07 Nasal Cannula 2.0 28 09/28/18 19:07 97 Nasal Cannula 2.0 28 09/28/18 19:05 71 19 97 Nasal Cannula 2.0 28 09/28/18 19:00 69 29 126/41 (69) 99 09/28/18 18:13 69 29 104/65 (78) 99 09/28/18 17:00 76 25 111/40 (63) 98 09/28/18 16:01 Nasal Cannula 2.0 Nasal Cannula 2.0 09/28/18 16:00 66 29 116/46 (69) 99 09/28/18 16:00 71 09/28/18 16:00 2.0 28 Intake and Output 09/28/18 09/29/18 19:00 07:00 Intake Total 1195 ml 765 ml Output Total 1750 ml 990 ml Balance -555 ml -225 ml Free Water 200 ml IV Total 165 ml Tube Feeding 765 ml 600 ml Other 230 ml Output Urine Total 1750 ml 990 ml Laboratory Tests 09/29/18 04:40: White Blood Count 9.5, Red Blood Count 3.42L, Hemoglobin 8.8L, Hematocrit 28.5L , Mean Corpuscular Volume 83, Mean Corpuscular Hemoglobin 25.6L, Mean Corpuscular Hemoglobin Concent 30.7L, Red Cell Distribution Width 19.9H, Platelet Count 185, Mean Platelet Volume 8.6, Neutrophils (%) (Auto) 75.3H, Lymphocytes (%) (Auto) 16.2L, Monocytes (%) (Auto) 6.1, Eosinophils (%) (Auto) 1.5, Basophils (%) (Auto) 0.8, Sodium Level 143, Potassium Level 4.5, Chloride Level 108H, Carbon Dioxide Level 29, Anion Gap 6, Blood Urea Nitrogen 22H, Creatinine 0.5L, Estimat Glomerular Filtration Rate , Glucose Level 102, Calcium Level 8.5, Phosphorus Level 4.1, Magnesium Level 2.3, Total Bilirubin 0.3, Aspartate Amino Transf (AST/SGOT) 15, Alanine Aminotransferase (ALT/SGPT) 34, Alkaline Phosphatase 45L, Pro-B-Type Natriuretic Peptide 3414H, Total Protein 6.0L, Albumin 2.5L, Globulin 3.5, Albumin/Globulin Ratio 0.7L 09/29/18 08:00: Arterial Blood pH 7.424, Arterial Blood Partial Pressure CO2 43.8, Arterial Blood Partial Pressure O2 65.3L, Arterial Blood HCO3 28.0H, Arterial Blood Oxygen Saturation 88.5*L, Arterial Blood Base Excess 3.2H, Ian Test Positive Height (Feet): 5 Weight (Pounds): 177 General Appearance: no apparent distress EENT: other - extubated Cardiovascular: normal rate Respiratory/Chest: decreased breath sounds Abdomen: distended Objective no change Danilo Huber MD Sep 29, 2018 15:58
--- NOTE | 2018-09-29 16:00 | NUR ---
NURSE NOTES: Bed bath given,kept dry and clean repositioned ,c/o pain to throat, given Tylenol 650 mg per NGT.
--- NOTE | 2018-09-29 17:09 | Infectious Diseases Prog Note ---
Assessment/Plan Assessment/Plan Assessment: Low grade fever x1, SP Leukocytosis, SP Probable PNA -sp cx MSSA, ABC ( S cefepime, Meropenem) -09/24 CXR: There is persistent opacity at the left lung base. -09/21 CT chest: Completely atelectatic left lung. This is likely due to endobronchial occlusion by debris. However, a small pulmonary hilar mass may also be present. This finding was discussed by phone with Dr. Sierra previously. Small left pleural effusion. Trace right pleural effusion. Posterior and basilar atelectatic changes of the right lung. Single enlarged aortopulmonary window lymph node. This could be neoplastic or reactive. This is increased in size since prior study 03/13/2018. Right lung groundglass opacity, nonspecific but likely on the basis of mild pulmonary edema. Mild cardiomegaly. Pericardial effusion Probable UTI -09/24 u/a wbc tnct nit +, leuk +3; ucx>100k EColi Gram positive bacteremia- real vs contamination -09/24 Bcx 06/05 ConS, 09/26 06/03 : GPC Hx of recurrent CONS bacteremia -07/28/18 Bcx 07/06 CONS; 07/29 Bcx Neg; 08/23 BCx neg -2d echo: no obvious vegetation -05/19/18 Bcx 3/ S. hominis sp hominis; 05/21 Bc xNeg 2d eCho: no vegetations. Focal aortic valve sclerosis with reduced cusp excursion. Thickened mitral valve leaflets with reduced excursion. 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, s/p Rx SP VDRF, 04/10 Sp extubated Legionella Ur Ag: Neg, Legionella IgM + / IgG - Scx: No sig growth Flu screen negative Acute on chronic respiratory failure s/p intubation 09/22, 09/28 extubated CHF and COPD exacerbation Atrial flutter dCHF COPD CAD s/p stents Hypertension Seizure disorder Schizophrenia Depression History of intraventricular pacemaker implantation GERD CVA/TIA b/l hip replacement hx of L DVT history of alcohol abuse hx of recurrent admissions hx of high grade CONS bacteremia SNF resident Plan: -Cont empiric Cefepime # for PNA and UTI and IV Vancomycin # ( may treat for Probable SBE, hx of recurrent CoNS bactremia ) for bacteremia pending ID and sensi and repeat Bcx - INH colistin d# 09/06 -Bcx x2 -f/u cx -Monitor CBC/CMP, temperatures -Cdiff if diarrhea - aspiration precautions Subjective Constitutional: Denies: no symptoms, fever, chills, fatigue, anorexia, drenching sweats, other Allergies: Coded Allergies: PIPERACILLIN (Unverified Allergy, Unknown, 05/21/18) tolerates cephalosporins TAZOBACTAM (Unverified Allergy, Unknown, 03/10/18) Subjective EXTUABTED TODAY Objective Vital Signs Last 24 Hour Vital Signs Date Time Temp Pulse Resp B/P (MAP) Pulse Ox O2 Delivery O2 Flow Rate FiO2 09/29/18 16:00 Nasal Cannula 2.0 Nasal Cannula 2.0 09/29/18 15:00 59 32 113/53 (73) 94 09/29/18 13:40 68 18 100 Nasal Cannula 2.0 28 09/29/18 13:30 70 18 98 Nasal Cannula 2.0 28 09/29/18 12:08 98.5 68 25 124/52 (76) 98 09/29/18 12:00 69 09/29/18 12:00 Nasal Cannula 2.0 Nasal Cannula 2.0 09/29/18 11:00 69 30 117/44 (68) 97 09/29/18 10:24 70 20 100 Nasal Cannula 2.0 28 09/29/18 10:00 70 20 96 Nasal Cannula 2.0 28 09/29/18 10:00 73 27 136/68 (90) 98 09/29/18 09:00 76 33 145/74 (97) 96 09/29/18 08:00 98.0 76 33 128/52 (77) 94 09/29/18 08:00 85 09/29/18 08:00 Nasal Cannula 2.0 Nasal Cannula 2.0 09/29/18 07:10 77 18 99 Nasal Cannula 2.0 28 09/29/18 07:00 98 Nasal Cannula 2.0 28 09/29/18 07:00 78 20 98 Nasal Cannula 2.0 28 09/29/18 07:00 70 37 124/41 (68) 96 09/29/18 07:00 Nasal Cannula 2.0 28 09/29/18 06:00 76 37 124/46 (72) 96 09/29/18 05:00 71 27 114/38 (63) 97 09/29/18 04:00 66 09/29/18 04:00 Mechanical Ventilator 2.0 Nasal Cannula 09/29/18 04:00 98.4 70 28 119/31 (60) 93 70 09/29/18 03:00 72 27 117/42 (67) 96 75 09/29/18 03:00 72 27 117/42 (67) 96 09/29/18 02:00 75 24 113/39 (63) 95 09/29/18 01:46 69 19 99 Nasal Cannula 2.0 28 09/29/18 01:16 65 19 95 Nasal Cannula 2.0 28 09/29/18 01:00 70 24 113/39 (63) 95 09/29/18 00:00 74 24 118/48 (71) 100 09/29/18 00:00 Mechanical Ventilator 2.0 Nasal Cannula 09/29/18 00:00 70 09/28/18 23:00 65 24 111/54 (73) 100 09/28/18 22:59 70 27 100 Nasal Cannula 2.0 28 09/28/18 22:46 64 25 99 Nasal Cannula 2.0 28 09/28/18 22:00 70 24 119/37 (64) 100 09/28/18 21:00 67 29 114/42 (66) 99 09/28/18 20:00 98.0 67 29 117/41 (66) 99 09/28/18 20:00 71 09/28/18 20:00 Mechanical Ventilator 2.0 Nasal Cannula 09/28/18 19:40 71 19 100 Nasal Cannula 2.0 28 09/28/18 19:07 Nasal Cannula 2.0 28 09/28/18 19:07 97 Nasal Cannula 2.0 28 09/28/18 19:05 71 19 97 Nasal Cannula 2.0 28 09/28/18 19:00 69 29 126/41 (69) 99 09/28/18 18:13 69 29 104/65 (78) 99 Height (Feet): 5 Weight (Pounds): 177 HEENT: anicteric Respiratory/Chest: no respiratory distress Cardiovascular: regularly irregular Abdomen: no organomegaly Laboratory Tests Test 09/29/18 04:40 09/29/18 08:00 White Blood Count 9.5 K/UL (4.8-10.8) Red Blood Count 3.42 M/UL (4.20-5.40) L Hemoglobin 8.8 G/DL (12.0-16.0) L Hematocrit 28.5 % (37.0-47.0) L Mean Corpuscular Volume 83 FL (80-99) Mean Corpuscular Hemoglobin 25.6 PG (27.0-31.0) L Mean Corpuscular Hemoglobin Concent 30.7 G/DL (32.0-36.0) L Red Cell Distribution Width 19.9 % (11.6-14.8) H Platelet Count 185 K/UL (150-450) Mean Platelet Volume 8.6 FL (6.5-10.1) Neutrophils (%) (Auto) 75.3 % (45.0-75.0) H Lymphocytes (%) (Auto) 16.2 % (20.0-45.0) L Monocytes (%) (Auto) 6.1 % (1.0-10.0) Eosinophils (%) (Auto) 1.5 % (0.0-3.0) Basophils (%) (Auto) 0.8 % (0.0-2.0) Sodium Level 143 MMOL/L (136-145) Potassium Level 4.5 MMOL/L (3.5-5.1) Chloride Level 108 MMOL/L (98-107) H Carbon Dioxide Level 29 MMOL/L (21-32) Anion Gap 6 mmol/L (5-15) Blood Urea Nitrogen 22 mg/dL (7-18) H Creatinine 0.5 MG/DL (0.55-1.30) L Estimat Glomerular Filtration Rate mL/min (>60) Glucose Level 102 MG/DL (74-106) Calcium Level 8.5 MG/DL (8.5-10.1) Phosphorus Level 4.1 MG/DL (2.5-4.9) Magnesium Level 2.3 MG/DL (1.8-2.4) Total Bilirubin 0.3 MG/DL (0.2-1.0) Aspartate Amino Transf (AST/SGOT) 15 U/L (15-37) Alanine Aminotransferase (ALT/SGPT) 34 U/L (12-78) Alkaline Phosphatase 45 U/L (46-116) L Pro-B-Type Natriuretic Peptide 3414 pg/mL (0-125) H Total Protein 6.0 G/DL (6.4-8.2) L Albumin 2.5 G/DL (3.4-5.0) L Globulin 3.5 g/dL Albumin/Globulin Ratio 0.7 (1.0-2.7) L Arterial Blood pH 7.424 (7.350-7.450) Arterial Blood Partial Pressure CO2 43.8 mmHg (35.0-45.0) Arterial Blood Partial Pressure O2 65.3 mmHg (75.0-100.0) L Arterial Blood HCO3 28.0 mmol/L (22.0-26.0) H Arterial Blood Oxygen Saturation 88.5 % (95-100) *L Arterial Blood Base Excess 3.2 (-2-2) H Ian Test Positive Current Medications Medications (Trade) Dose Ordered Sig/Ibrahima Route PRN Reason Start Time Stop Time Status Last Admin Dose Admin Acetaminophen (Tylenol) 650 mg Q4H PRN ORAL Mild Pain (Pain Scale 1-3) 09/22/18 12:47 10/21/18 12:46 09/29/18 16:22 Albuterol/ Ipratropium (Albuterol/ Ipratropium) 3 ml Q6HRT HHN 09/25/18 13:00 09/30/18 12:59 09/29/18 13:46 Apixaban (Eliquis) 5 mg BID ORAL 09/29/18 18:00 10/19/18 17:59 Cefepime HCl 1 gm/ Dextrose 55 ml @ 110 mls/hr Q24H IVPB 09/25/18 01:00 10/02/18 00:59 09/29/18 00:54 Colistimethate Sodium (Colistin *inhalation use only*) 150 mg Q12HR@10,22 INH 09/26/18 10:00 10/03/18 09:59 09/29/18 10:18 Dextrose (Dextrose 50%) 25 ml Q30M PRN IV Hypoglycemia 09/22/18 13:00 10/17/18 06:59 Dextrose (Dextrose 50%) 50 ml Q30M PRN IV Hypoglycemia 09/22/18 13:00 10/17/18 06:59 Docusate Sodium (Colace) 100 mg TID ORAL 09/22/18 13:00 10/19/18 08:59 09/29/18 12:54 Folic Acid (Folate) 5 mg DAILY ORAL 09/23/18 09:00 10/18/18 09:59 09/29/18 09:23 Furosemide (Lasix) 40 mg DAILY IV 09/26/18 09:00 10/26/18 08:59 09/29/18 09:16 Ondansetron HCl (Zofran) 4 mg Q6H PRN IVP Nausea & Vomiting 09/22/18 12:49 10/21/18 12:48 Pantoprazole (Protonix) 40 mg DAILY IV 09/23/18 09:00 10/23/18 08:59 09/29/18 09:17 Polyethylene Glycol (Miralax) 17 gm DAILYPRN PRN ORAL Constipation 09/22/18 12:50 10/21/18 12:49 Potassium Chloride (K-Dur) 40 meq DAILY NGT 09/30/18 09:00 10/27/18 12:44 Prednisone (predniSONE) 30 mg DAILY ORAL 09/28/18 09:00 10/20/18 08:59 09/29/18 09:18 Risperidone (RisperDAL) 1 mg BEDTIME ORAL 09/22/18 21:00 10/17/18 20:59 09/28/18 21:23 Thiamine HCl (Vitamin B1) 100 mg DAILY ORAL 09/23/18 09:00 10/20/18 08:59 09/29/18 09:19 Vancomycin HCl (Vanco rx to dose) 1 ea DAILY PRN MISC Per rx protocol 09/25/18 13:15 10/25/18 13:14 Vancomycin HCl 500 mg/Dextrose 110 ml @ 110 mls/hr Q12HR@0300,1500 IVPB 09/28/18 15:00 10/03/18 14:59 09/29/18 14:34 Juan Moeller MD Sep 29, 2018 17:09
--- NOTE | 2018-09-29 17:36 | Cardiology Progress Note ---
Assessment/Plan Assessment/Plan 1. Bronchospasm. 2. Possible left-sided infiltrate or pneumonia. 3. Diastolic heart failure history. 4. Permanent atrial fibrillation. 5. lung collapse 6. hs of pacer lung col,lapswe resolved vr seem fine bp is fine at time time abx extubated looks good on lasix iv bicarb seem fine Subjective Cardiovascular: Denies: chest pain, lightheadedness Respiratory: Denies: shortness of breath Subjective "i was told i have venereal disease" Objective Last 24 Hour Vital Signs Date Time Temp Pulse Resp B/P (MAP) Pulse Ox O2 Delivery O2 Flow Rate FiO2 09/29/18 17:00 78 30 137/55 (82) 95 09/29/18 16:00 98.5 76 30 126/55 (78) 96 09/29/18 16:00 Nasal Cannula 2.0 Nasal Cannula 2.0 09/29/18 16:00 76 09/29/18 15:00 59 32 113/53 (73) 94 09/29/18 13:40 68 18 100 Nasal Cannula 2.0 28 09/29/18 13:30 70 18 98 Nasal Cannula 2.0 28 09/29/18 12:08 98.5 68 25 124/52 (76) 98 09/29/18 12:00 69 09/29/18 12:00 Nasal Cannula 2.0 Nasal Cannula 2.0 09/29/18 11:00 69 30 117/44 (68) 97 09/29/18 10:24 70 20 100 Nasal Cannula 2.0 28 09/29/18 10:00 70 20 96 Nasal Cannula 2.0 28 09/29/18 10:00 73 27 136/68 (90) 98 09/29/18 09:00 76 33 145/74 (97) 96 09/29/18 08:00 98.0 76 33 128/52 (77) 94 09/29/18 08:00 85 09/29/18 08:00 Nasal Cannula 2.0 Nasal Cannula 2.0 09/29/18 07:10 77 18 99 Nasal Cannula 2.0 28 09/29/18 07:00 98 Nasal Cannula 2.0 28 09/29/18 07:00 78 20 98 Nasal Cannula 2.0 28 09/29/18 07:00 70 37 124/41 (68) 96 09/29/18 07:00 Nasal Cannula 2.0 28 09/29/18 06:00 76 37 124/46 (72) 96 09/29/18 05:00 71 27 114/38 (63) 97 09/29/18 04:00 66 09/29/18 04:00 Mechanical Ventilator 2.0 Nasal Cannula 09/29/18 04:00 98.4 70 28 119/31 (60) 93 70 09/29/18 03:00 72 27 117/42 (67) 96 75 09/29/18 03:00 72 27 117/42 (67) 96 09/29/18 02:00 75 24 113/39 (63) 95 09/29/18 01:46 69 19 99 Nasal Cannula 2.0 28 09/29/18 01:16 65 19 95 Nasal Cannula 2.0 28 09/29/18 01:00 70 24 113/39 (63) 95 09/29/18 00:00 74 24 118/48 (71) 100 09/29/18 00:00 Mechanical Ventilator 2.0 Nasal Cannula 09/29/18 00:00 70 09/28/18 23:00 65 24 111/54 (73) 100 09/28/18 22:59 70 27 100 Nasal Cannula 2.0 28 09/28/18 22:46 64 25 99 Nasal Cannula 2.0 28 09/28/18 22:00 70 24 119/37 (64) 100 09/28/18 21:00 67 29 114/42 (66) 99 09/28/18 20:00 98.0 67 29 117/41 (66) 99 09/28/18 20:00 71 09/28/18 20:00 Mechanical Ventilator 2.0 Nasal Cannula 09/28/18 19:40 71 19 100 Nasal Cannula 2.0 28 09/28/18 19:07 Nasal Cannula 2.0 28 09/28/18 19:07 97 Nasal Cannula 2.0 28 09/28/18 19:05 71 19 97 Nasal Cannula 2.0 28 09/28/18 19:00 69 29 126/41 (69) 99 09/28/18 18:13 69 29 104/65 (78) 99 General Appearance: no apparent distress, alert Neck: supple Cardiovascular: normal rate, regular rhythm Respiratory/Chest: lungs clear Abdomen: normal bowel sounds, non tender, soft Extremities: no swelling Intake and Output 09/28/18 09/29/18 19:00 07:00 Intake Total 1195 ml 765 ml Output Total 1750 ml 990 ml Balance -555 ml -225 ml Free Water 200 ml IV Total 165 ml Tube Feeding 765 ml 600 ml Other 230 ml Output Urine Total 1750 ml 990 ml Laboratory Tests Test 09/29/18 04:40 09/29/18 08:00 White Blood Count 9.5 K/UL (4.8-10.8) Red Blood Count 3.42 M/UL (4.20-5.40) L Hemoglobin 8.8 G/DL (12.0-16.0) L Hematocrit 28.5 % (37.0-47.0) L Mean Corpuscular Volume 83 FL (80-99) Mean Corpuscular Hemoglobin 25.6 PG (27.0-31.0) L Mean Corpuscular Hemoglobin Concent 30.7 G/DL (32.0-36.0) L Red Cell Distribution Width 19.9 % (11.6-14.8) H Platelet Count 185 K/UL (150-450) Mean Platelet Volume 8.6 FL (6.5-10.1) Neutrophils (%) (Auto) 75.3 % (45.0-75.0) H Lymphocytes (%) (Auto) 16.2 % (20.0-45.0) L Monocytes (%) (Auto) 6.1 % (1.0-10.0) Eosinophils (%) (Auto) 1.5 % (0.0-3.0) Basophils (%) (Auto) 0.8 % (0.0-2.0) Sodium Level 143 MMOL/L (136-145) Potassium Level 4.5 MMOL/L (3.5-5.1) Chloride Level 108 MMOL/L (98-107) H Carbon Dioxide Level 29 MMOL/L (21-32) Anion Gap 6 mmol/L (5-15) Blood Urea Nitrogen 22 mg/dL (7-18) H Creatinine 0.5 MG/DL (0.55-1.30) L Estimat Glomerular Filtration Rate mL/min (>60) Glucose Level 102 MG/DL (74-106) Calcium Level 8.5 MG/DL (8.5-10.1) Phosphorus Level 4.1 MG/DL (2.5-4.9) Magnesium Level 2.3 MG/DL (1.8-2.4) Total Bilirubin 0.3 MG/DL (0.2-1.0) Aspartate Amino Transf (AST/SGOT) 15 U/L (15-37) Alanine Aminotransferase (ALT/SGPT) 34 U/L (12-78) Alkaline Phosphatase 45 U/L (46-116) L Pro-B-Type Natriuretic Peptide 3414 pg/mL (0-125) H Total Protein 6.0 G/DL (6.4-8.2) L Albumin 2.5 G/DL (3.4-5.0) L Globulin 3.5 g/dL Albumin/Globulin Ratio 0.7 (1.0-2.7) L Arterial Blood pH 7.424 (7.350-7.450) Arterial Blood Partial Pressure CO2 43.8 mmHg (35.0-45.0) Arterial Blood Partial Pressure O2 65.3 mmHg (75.0-100.0) L Arterial Blood HCO3 28.0 mmol/L (22.0-26.0) H Arterial Blood Oxygen Saturation 88.5 % (95-100) *L Arterial Blood Base Excess 3.2 (-2-2) H Ian Test Positive Akbar Reno MD Sep 29, 2018 17:36
[2018-09-29] MEDS: Eliquis 5mg tablet ORAL SCH (17:59)
--- NOTE | 2018-09-29 18:00 | NUR ---
NURSE NOTES: Pt asleep at this time.called Dr Mendoza per pt's request for a stronger pain medic,call returned and orders given.Will endorse to incoming shift.
[2018-09-29] MEDS ORDERED: Morphine Sulfate 4mg/ml Inj (IV USE ONLY) IVP PRN (18:45)
--- NOTE | 2018-09-29 19:04 | Internal Med Progress Note ---
Subjective Date of Service: Sep 29, 2018 Physician Name Juan Dutta Attending Physician Yonathan Mendoza MD Current Medications Medications (Trade) Dose Ordered Sig/Ibrahima Route PRN Reason Start Time Stop Time Status Last Admin Dose Admin Acetaminophen (Tylenol) 650 mg Q4H PRN ORAL Mild Pain (Pain Scale 1-3) 09/22/18 12:47 10/21/18 12:46 09/29/18 16:22 Albuterol/ Ipratropium (Albuterol/ Ipratropium) 3 ml Q6HRT HHN 09/25/18 13:00 09/30/18 12:59 09/29/18 13:46 Apixaban (Eliquis) 5 mg BID ORAL 09/29/18 18:00 10/19/18 17:59 09/29/18 17:59 Cefepime HCl 1 gm/ Dextrose 55 ml @ 110 mls/hr Q24H IVPB 09/25/18 01:00 10/02/18 00:59 09/29/18 00:54 Colistimethate Sodium (Colistin *inhalation use only*) 150 mg Q12HR@10,22 INH 09/26/18 10:00 10/03/18 09:59 09/29/18 10:18 Dextrose (Dextrose 50%) 25 ml Q30M PRN IV Hypoglycemia 09/22/18 13:00 10/17/18 06:59 Dextrose (Dextrose 50%) 50 ml Q30M PRN IV Hypoglycemia 09/22/18 13:00 10/17/18 06:59 Docusate Sodium (Colace) 100 mg TID ORAL 09/22/18 13:00 10/19/18 08:59 09/29/18 17:59 Folic Acid (Folate) 5 mg DAILY ORAL 09/23/18 09:00 10/18/18 09:59 09/29/18 09:23 Furosemide (Lasix) 40 mg DAILY IV 09/26/18 09:00 10/26/18 08:59 09/29/18 09:16 Morphine Sulfate (Morphine Sulfate) 2 mg Q4H PRN IVP Moderate Pain (Pain Scale 4-6) 09/29/18 18:45 10/06/18 18:44 Morphine Sulfate (Morphine Sulfate) 4 mg Q4H PRN IVP Severe Pain (Pain Scale 7-10) 09/29/18 18:45 5/7/19 18:44 Ondansetron HCl (Zofran) 4 mg Q6H PRN IVP Nausea & Vomiting 09/22/18 12:49 10/21/18 12:48 Pantoprazole (Protonix) 40 mg DAILY IV 09/23/18 09:00 10/23/18 08:59 09/29/18 09:17 Polyethylene Glycol (Miralax) 17 gm DAILYPRN PRN ORAL Constipation 09/22/18 12:50 10/21/18 12:49 Potassium Chloride (K-Dur) 40 meq DAILY NGT 09/30/18 09:00 10/27/18 12:44 Prednisone (predniSONE) 30 mg DAILY ORAL 09/28/18 09:00 10/20/18 08:59 09/29/18 09:18 Risperidone (RisperDAL) 1 mg BEDTIME ORAL 09/22/18 21:00 10/17/18 20:59 09/28/18 21:23 Thiamine HCl (Vitamin B1) 100 mg DAILY ORAL 09/23/18 09:00 10/20/18 08:59 09/29/18 09:19 Vancomycin HCl (Vanco rx to dose) 1 ea DAILY PRN MISC Per rx protocol 09/25/18 13:15 10/25/18 13:14 Vancomycin HCl 500 mg/Dextrose 110 ml @ 110 mls/hr Q12HR@0300,1500 IVPB 09/28/18 15:00 10/03/18 14:59 09/29/18 14:34 Allergies: Coded Allergies: PIPERACILLIN (Unverified Allergy, Unknown, 05/21/18) tolerates cephalosporins TAZOBACTAM (Unverified Allergy, Unknown, 03/10/18) ROS Limited/Unobtainable: No Constitutional: Reports: no symptoms HEENT: Reports: no symptoms Cardiovascular: Reports: no symptoms Respiratory: Reports: shortness of breath Gastrointestinal/Abdominal: Reports: no symptoms Genitourinary: Reports: no symptoms Neurologic/Psychiatric: Reports: no symptoms Subjective 77 YO F admitted for respiratory distress. Now left lung opacification. Extubated 09/28/18. Cover for Nick Mendoza. ICU Objective Last Vital Signs Date Time Temp Pulse Resp B/P (MAP) Pulse Ox O2 Delivery O2 Flow Rate FiO2 09/29/18 18:00 72 30 142/56 (84) 99 09/29/18 16:00 98.5 09/29/18 16:00 Nasal Cannula 2.0 Nasal Cannula 2.0 09/29/18 13:40 28 Laboratory Tests Test 09/29/18 04:40 09/29/18 08:00 White Blood Count 9.5 K/UL (4.8-10.8) Red Blood Count 3.42 M/UL (4.20-5.40) L Hemoglobin 8.8 G/DL (12.0-16.0) L Hematocrit 28.5 % (37.0-47.0) L Mean Corpuscular Volume 83 FL (80-99) Mean Corpuscular Hemoglobin 25.6 PG (27.0-31.0) L Mean Corpuscular Hemoglobin Concent 30.7 G/DL (32.0-36.0) L Red Cell Distribution Width 19.9 % (11.6-14.8) H Platelet Count 185 K/UL (150-450) Mean Platelet Volume 8.6 FL (6.5-10.1) Neutrophils (%) (Auto) 75.3 % (45.0-75.0) H Lymphocytes (%) (Auto) 16.2 % (20.0-45.0) L Monocytes (%) (Auto) 6.1 % (1.0-10.0) Eosinophils (%) (Auto) 1.5 % (0.0-3.0) Basophils (%) (Auto) 0.8 % (0.0-2.0) Sodium Level 143 MMOL/L (136-145) Potassium Level 4.5 MMOL/L (3.5-5.1) Chloride Level 108 MMOL/L (98-107) H Carbon Dioxide Level 29 MMOL/L (21-32) Anion Gap 6 mmol/L (5-15) Blood Urea Nitrogen 22 mg/dL (7-18) H Creatinine 0.5 MG/DL (0.55-1.30) L Estimat Glomerular Filtration Rate mL/min (>60) Glucose Level 102 MG/DL (74-106) Calcium Level 8.5 MG/DL (8.5-10.1) Phosphorus Level 4.1 MG/DL (2.5-4.9) Magnesium Level 2.3 MG/DL (1.8-2.4) Total Bilirubin 0.3 MG/DL (0.2-1.0) Aspartate Amino Transf (AST/SGOT) 15 U/L (15-37) Alanine Aminotransferase (ALT/SGPT) 34 U/L (12-78) Alkaline Phosphatase 45 U/L (46-116) L Pro-B-Type Natriuretic Peptide 3414 pg/mL (0-125) H Total Protein 6.0 G/DL (6.4-8.2) L Albumin 2.5 G/DL (3.4-5.0) L Globulin 3.5 g/dL Albumin/Globulin Ratio 0.7 (1.0-2.7) L Arterial Blood pH 7.424 (7.350-7.450) Arterial Blood Partial Pressure CO2 43.8 mmHg (35.0-45.0) Arterial Blood Partial Pressure O2 65.3 mmHg (75.0-100.0) L Arterial Blood HCO3 28.0 mmol/L (22.0-26.0) H Arterial Blood Oxygen Saturation 88.5 % (95-100) *L Arterial Blood Base Excess 3.2 (-2-2) H Ian Test Positive Intake and Output 09/28/18 09/29/18 19:00 07:00 Intake Total 1195 ml 765 ml Output Total 1750 ml 990 ml Balance -555 ml -225 ml Free Water 200 ml IV Total 165 ml Tube Feeding 765 ml 600 ml Other 230 ml Output Urine Total 1750 ml 990 ml Objective PHYSICAL EXAMINATION: GENERAL: The patient is a well-developed and well-nourished white female, who is in moderate respiratory distress. HEENT: Eyes, pupils are equal and responsive to light and accommodation. Extraocular movements are intact. NECK: Supple without lymphadenopathy. CHEST: Nasal Canula; Few rales in bilateral bases, otherwise, Lungs are clear to auscultation bilaterally without wheezes CARDIOVASCULAR: Regular rhythm and rate. S1 and S2 normal without murmurs, rubs, or gallops. ABDOMEN: Soft, nontender, and nondistended. Positive bowel sounds. No evidence of hepatosplenomegaly. Currently, no rebound or guarding noted. EXTREMITIES: Negative for clubbing, cyanosis, or edema. RECTAL/GENITAL: Refused. NEUROLOGIC: Cranial nerves II through XII are grossly intact without focal deficits. Motor strength is 5/5 bilaterally. Deep tendon reflexes are 2+ plantar. Assessment/Plan Assessment/Plan ASSESSMENT: This is a 77-year-old white female with: 1. Shortness of breath. 2. Hypoxia. 3. Acute on chronic congestive heart failure. 4. Atrial flutter. 5. Hyponatremia. 6. Chronic obstructive pulmonary disease. 7. Coronary artery disease. 8. Hypertension. 9. Seizure disorder. 10. Paranoid schizophrenia. 11. Intraventricular pacemaker 12. left lung opacification-collapse per CT TREATMENT: 1. Shortness of breath/congestive heart failure. Extubated 09/28/[address] Sierra. Cardiologyconsultation has been obtained with Dr. Milian. The patient is currently receiving intravenous Lasix. We will follow recommendation of Cardiology. BNP is elevated at over greater than 5000. An echocardiogram is pending. 2. Atrial flutter. Continue Eliquis as above. 3. Hyponatremia. The patient is currently receiving intravenous fluids. 4. Chronic obstructive pulmonary disease. Continue DuoNeb nebulized as above. The patient was initially placed on BiPAP in the emergency room. A Pulmonary consultation has been obtained with Dr. Mendel Sierra. 5. Hypertension. Continue Lasix as above. 6. Seizure disorder. The patient is currently off antiseizure medication. 7. Paranoid schizophrenia. Continue Risperdal as above. Juan Dutta MD Sep 29, 2018 19:04
--- NOTE | 2018-09-29 19:07 | NUR ---
HAND-OFF: Report given to Birdie Rebolledo RN.
--- NOTE | 2018-09-29 19:08 | NUR ---
NURSE NOTES: BEDSIDE REPORT RECEIVED FROM CHARLETTE DUNCAN. PT IS RESTING IN BED, AWAKE, ABLE TO MAKE NEEDS KNOWN. 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 2L NC SATING WELL. R/NGT RUNNING GLUCERNA 1.2 @ 55; RESIDUAL 20CC. SKIN IS CLEAN, DRY, DRESSINGS INTACT. ROBERT[place] IN PLACE FOR RETENTION, DRAINING. LFA 22G; ASYMPTOMATIC, FLUSHES WELL. BED IS LOCKED IN LOWEST POSITION, SR X3, BILATERAL SOFT WRIST RESTRAINTS CONTINUED, CALL PEDRAZA W/ IN REACH, BED ALARM ON. WILL CONTINUE TO MONITOR AND FOLLOW W/ PLAN OF CARE.
[2018-09-29] MEDS: Morphine Sulfate 2mg/ml Inj(IV/IM USE ONLY) IVP PRN (20:35)
--- NOTE | 2018-09-29 21:00 | NUR ---
NURSE NOTES: PT RESTING IN BED, TURNED, PROVIDED ORAL CARE. NEEDS MET. WILL CONTINUE TO MONITOR AND FOLLOW W/ PLAN OF CARE.
[2018-09-30] VITALS (23 sets, daily range): BP systolic 91–141; BP diastolic 34–72
--- NOTE | 2018-09-30 | NUR ---
PT RESTING IN BED, STABLE, NO S/S OF DISTRESS NOTED, VSS. WILL CONTINUE TO MONITOR AND FOLLOW W/ PLAN OF CARE.
[2018-09-30] MEDS: Cefepime HCl 1 GM in D5W 55 ML IVPB SCH (00:12)
[2018-09-30] MEDS: Albuterol/Ipratropium 3ml neb HHN SCH ×2 (00:44→07:11)
[2018-09-30 02:25] LABS: BASOPHILS % (AUTO) 0.5 % (0.0-2.0); EOSINOPHILS % (AUTO) 1.1 % (0.0-3.0); HEMATOCRIT 30.1 % (37.0-47.0); HEMOGLOBIN 9.4 G/DL (12.0-16.0); LYMPHOCYTES % (AUTO) 12.2 % (20.0-45.0); MEAN CORPUSCULAR VOLUME 83 FL (80-99); MONOCYTES % (AUTO) 5.3 % (1.0-10.0); PLATELET COUNT 193 K/UL (150-450); RED BLOOD COUNT 3.64 M/UL (4.20-5.40); RED CELL DISTRIBUTION WIDTH 19.2 % (11.6-14.8)
[2018-09-30 02:41] LABS: ALANINE AMINOTRANSFERASE 55 U/L (12-78); ALBUMIN 2.7 G/DL (3.4-5.0); ALBUMIN/GLOBULIN RATIO 0.8 (1.0-2.7); ALKALINE PHOSPHATASE 51 U/L (46-116); ANION GAP 4 mmol/L (5-15); ASPARTATE AMINO TRANSFERASE 28 U/L (15-37); BILIRUBIN,TOTAL 0.4 MG/DL (0.2-1.0); BLOOD UREA NITROGEN 20 mg/dL (7-18); CALCIUM 9.1 MG/DL (8.5-10.1); CARBON DIOXIDE 32 MMOL/L (21-32); CHLORIDE 105 MMOL/L (98-107); CREATININE 0.5 MG/DL (0.55-1.30); PHOSPHORUS 4.1 MG/DL (2.5-4.9); POTASSIUM 4.3 MMOL/L (3.5-5.1); SODIUM 141 MMOL/L (136-145)
--- NOTE | 2018-09-30 02:55 | NUR ---
NURSE NOTES: PT WAS CLEANED, SKIN EXAMINED UNDER DRESSING; UNCHANGED. CHANGED SACRAL AND HEEL DRESSINGS, ROBERTSON CARE, FULL BED BATH W/ PARTIAL LINEN CHANGE DONE. TOLERATED WELL. WILL CONTINUE TO MONITOR AND FOLLOW W/ PLAN OF CARE.
[2018-09-30] MEDS: Vancomycin 500mg/D5W 110ml IVPB SCH ×6 (03:09→18:24)
[2018-09-30] MEDS: Morphine Sulfate 2mg/ml Inj(IV/IM USE ONLY) IVP PRN ×5 (04:33→22:06)
--- NOTE | 2018-09-30 05:45 | NUR ---
NURSE NOTES: PT STILL COMPLAINING OF THROAT PAIN, MORPHINE WAS GIVEN X2 ON SHIFT. PT NOW APPEARS TO BE COMFORTABLE, VSS, NO S/S OF DISTRESS NOTED. WILL CONTINUE TO MONITOR AND FOLLOW W/ PLAN OF CARE.
--- NOTE | 2018-09-30 06:49 | General Progress Note ---
Assessment/Plan Problem List: (1) COPD (chronic obstructive pulmonary disease) ICD Codes: J44.9 - Chronic obstructive pulmonary disease, unspecified SNOMED: 90248491 Qualifiers: Qualified Codes: J44.9 - Chronic obstructive pulmonary disease, unspecified (2) Hyponatremia ICD Codes: E87.1 - Hyponatremia SNOMED: 55715604 (3) HTN (hypertension) ICD Codes: I10 - Hypertension SNOMED: 11533504 Assessment/Plan: on Prednisone 30 mg daily electrolytes are normal continue excellent ICU care Subjective ROS Limited/Unobtainable: Yes Allergies: Coded Allergies: PIPERACILLIN (Unverified Allergy, Unknown, 05/21/18) tolerates cephalosporins TAZOBACTAM (Unverified Allergy, Unknown, 03/10/18) Subjective events noted Objective Last 24 Hour Vital Signs Date Time Temp Pulse Resp B/P (MAP) Pulse Ox O2 Delivery O2 Flow Rate FiO2 09/30/18 06:00 76 22 130/62 (84) 98 09/30/18 05:03 98.7 09/30/18 05:00 73 26 123/49 (73) 99 09/30/18 04:00 Nasal Cannula 2.0 Nasal Cannula 2.0 09/30/18 04:00 98.4 71 31 121/52 (75) 98 09/30/18 04:00 67 09/30/18 03:00 67 27 109/34 (59) 99 09/30/18 02:00 72 26 136/52 (80) 96 09/30/18 01:00 76 27 141/60 (87) 96 09/30/18 00:57 65 31 100 Nasal Cannula 2.0 28 09/30/18 00:44 70 28 98 Nasal Cannula 2.0 28 09/30/18 00:00 Nasal Cannula 2.0 Nasal Cannula 2.0 09/30/18 00:00 98.7 70 31 140/47 (78) 99 09/30/18 00:00 70 09/29/18 23:15 71 20 100 Nasal Cannula 2.0 28 09/29/18 23:01 68 20 97 Nasal Cannula 2.0 28 09/29/18 23:00 98.8 72 31 145/57 (86) 98 09/29/18 22:00 98.4 70 31 138/56 (83) 97 09/29/18 21:00 98.5 71 28 142/57 (85) 97 09/29/18 20:02 67 30 100 Nasal Cannula 2.0 28 09/29/18 20:00 Nasal Cannula 2.0 Nasal Cannula 2.0 09/29/18 20:00 83 09/29/18 20:00 98.6 71 30 142/57 (85) 94 09/29/18 19:51 Nasal Cannula 2.0 28 09/29/18 19:51 97 Nasal Cannula 2.0 28 09/29/18 19:48 73 24 98 Nasal Cannula 2.0 28 09/29/18 19:13 75 30 140/82 (101) 09/29/18 18:00 72 30 142/56 (84) 99 09/29/18 17:00 78 30 137/55 (82) 95 09/29/18 16:00 98.5 76 30 126/55 (78) 96 09/29/18 16:00 Nasal Cannula 2.0 Nasal Cannula 2.0 09/29/18 16:00 76 09/29/18 15:00 59 32 113/53 (73) 94 09/29/18 13:40 68 18 100 Nasal Cannula 2.0 28 09/29/18 13:30 70 18 98 Nasal Cannula 2.0 28 09/29/18 12:08 98.5 68 25 124/52 (76) 98 09/29/18 12:00 69 09/29/18 12:00 Nasal Cannula 2.0 Nasal Cannula 2.0 09/29/18 11:00 69 30 117/44 (68) 97 09/29/18 10:24 70 20 100 Nasal Cannula 2.0 28 09/29/18 10:00 70 20 96 Nasal Cannula 2.0 28 09/29/18 10:00 73 27 136/68 (90) 98 09/29/18 09:00 76 33 145/74 (97) 96 09/29/18 08:00 98.0 76 33 128/52 (77) 94 09/29/18 08:00 85 09/29/18 08:00 Nasal Cannula 2.0 Nasal Cannula 2.0 09/29/18 07:10 77 18 99 Nasal Cannula 2.0 28 09/29/18 07:00 98 Nasal Cannula 2.0 28 09/29/18 07:00 78 20 98 Nasal Cannula 2.0 28 09/29/18 07:00 70 37 124/41 (68) 96 09/29/18 07:00 Nasal Cannula 2.0 28 Intake and Output 09/29/18 09/30/18 19:00 07:00 Intake Total 1140 ml 915 ml Output Total 1645 ml 515 ml Balance -505 ml 400 ml Free Water 200 ml 120 ml Tube Feeding 660 ml 605 ml Other 280 ml 190 ml Output Urine Total 1645 ml 515 ml Laboratory Tests 09/29/18 08:00: Arterial Blood pH 7.424, Arterial Blood Partial Pressure CO2 43.8, Arterial Blood Partial Pressure O2 65.3L, Arterial Blood HCO3 28.0H, Arterial Blood Oxygen Saturation 88.5*L, Arterial Blood Base Excess 3.2H, Ian Test Positive 09/30/18 02:05: White Blood Count 12.0H, Red Blood Count 3.64L, Hemoglobin 9.4L, Hematocrit 30.1L, Mean Corpuscular Volume 83, Mean Corpuscular Hemoglobin 25.8L, Mean Corpuscular Hemoglobin Concent 31.2L, Red Cell Distribution Width 19.2H, Platelet Count 193, Mean Platelet Volume 9.0, Neutrophils (%) (Auto) 81.0H, Lymphocytes (%) (Auto) 12.2L, Monocytes (%) (Auto) 5.3, Eosinophils (%) (Auto) 1.1, Basophils (%) (Auto) 0.5, Sodium Level 141, Potassium Level 4.3, Chloride Level 105, Carbon Dioxide Level 32, Anion Gap 4L, Blood Urea Nitrogen 20H, Creatinine 0.5L, Estimat Glomerular Filtration Rate , Glucose Level 102, Calcium Level 9.1, Phosphorus Level 4.1, Magnesium Level 2.2, Total Bilirubin 0.4, Aspartate Amino Transf (AST/SGOT) 28, Alanine Aminotransferase (ALT/SGPT) 55, Alkaline Phosphatase 51, Total Protein 6.3L, Albumin 2.7L, Globulin 3.6, Albumin/Globulin Ratio 0.8L, Vancomycin Level Trough 9.5 Height (Feet): 5 Weight (Pounds): 177 General Appearance: no apparent distress Neck: normal alignment Cardiovascular: normal rate Respiratory/Chest: decreased breath sounds Abdomen: normal bowel sounds Objective Current Medications Medications (Trade) Dose Ordered Sig/Ibrahima Route PRN Reason Start Time Stop Time Status Last Admin Dose Admin Acetaminophen (Tylenol) 650 mg Q4H PRN ORAL Mild Pain (Pain Scale 1-3) 09/22/18 12:47 10/21/18 12:46 09/29/18 16:22 Albuterol/ Ipratropium (Albuterol/ Ipratropium) 3 ml Q6HRT HHN 09/25/18 13:00 09/30/18 12:59 09/30/18 00:44 Apixaban (Eliquis) 5 mg BID ORAL 09/29/18 18:00 10/19/18 17:59 09/29/18 17:59 Cefepime HCl 1 gm/ Dextrose 55 ml @ 110 mls/hr Q24H IVPB 09/25/18 01:00 10/02/18 00:59 09/30/18 00:12 Colistimethate Sodium (Colistin *inhalation use only*) 150 mg Q12HR@10,22 INH 09/26/18 10:00 10/03/18 09:59 09/29/18 23:01 Dextrose (Dextrose 50%) 25 ml Q30M PRN IV Hypoglycemia 09/22/18 13:00 10/17/18 06:59 Dextrose (Dextrose 50%) 50 ml Q30M PRN IV Hypoglycemia 09/22/18 13:00 10/17/18 06:59 Docusate Sodium (Colace) 100 mg TID ORAL 09/22/18 13:00 10/19/18 08:59 09/29/18 17:59 Folic Acid (Folate) 5 mg DAILY ORAL 09/23/18 09:00 10/18/18 09:59 09/29/18 09:23 Furosemide (Lasix) 40 mg DAILY IV 09/26/18 09:00 10/26/18 08:59 09/29/18 09:16 Morphine Sulfate (Morphine Sulfate) 2 mg Q4H PRN IVP Moderate Pain (Pain Scale 4-6) 09/29/18 18:45 10/06/18 18:44 09/30/18 04:33 Morphine Sulfate (Morphine Sulfate) 4 mg Q4H PRN IVP Severe Pain (Pain Scale 7-10) 09/29/18 18:45 10/06/18 18:44 Ondansetron HCl (Zofran) 4 mg Q6H PRN IVP Nausea & Vomiting 09/22/18 12:49 10/21/18 12:48 Pantoprazole (Protonix) 40 mg DAILY IV 09/23/18 09:00 10/23/18 08:59 09/29/18 09:17 Polyethylene Glycol (Miralax) 17 gm DAILYPRN PRN ORAL Constipation 09/22/18 12:50 10/21/18 12:49 Potassium Chloride (K-Dur) 40 meq DAILY NGT 09/30/18 09:00 10/27/18 12:44 Prednisone (predniSONE) 30 mg DAILY ORAL 09/28/18 09:00 10/20/18 08:59 09/29/18 09:18 Risperidone (RisperDAL) 1 mg BEDTIME ORAL 09/22/18 21:00 10/17/18 20:59 09/29/18 20:35 Thiamine HCl (Vitamin B1) 100 mg DAILY ORAL 09/23/18 09:00 10/20/18 08:59 09/29/18 09:19 Vancomycin HCl (Vanco rx to dose) 1 ea DAILY PRN MISC Per rx protocol 09/25/18 13:15 10/25/18 13:14 Vancomycin HCl 500 mg/Dextrose 110 ml @ 110 mls/hr Q8HR@0300,1100,1900 IVPB 09/30/18 11:00 10/05/18 10:59 Daniel Little MD September 30, 2018 06:49
--- NOTE | 2018-09-30 07:23 | NUR ---
HAND-OFF: Report given to [facility]TT[facility] CASTANEDA. PT STABLE AT THIS TIME.
--- NOTE | 2018-09-30 07:24 | NUR ---
NURSE NOTES: Received patient from CHARLETTE Packer. Patient sleeping at this time. Patient reported to be alert to name, date, and place. Patient occasionally confused and forgetful. Patient showing atrial fibrillation with V pacing on the shelter monitor. Patient has pace maker on the left chest. Patient on 2L NC with saturation of 100%. Patient extubated on 09/28. patient reported to complain of throat pain. Patient has an nasogastric tube of the right nares that is patent and running glucerna 1.2 at 55mL/hr at this time with no residual. Patient has potts for urine retention. Patient has 2 scabs on sacral. Patient has bilateral redness of the heels. Patient on P200 pressure release mattress. Patient has a left forearm 22G PIV that is patent, asymptomatic, and saline locked at this time. Patient labs stable this morning. Dr Milian reported that the patient can be transferred to [facility] if the primary orders transfer. Patient bed in low position with bed alarm on and call light in reach at this time. Patient propped up in the left side with pillows under right side due to previous collapsed lung that is now resolved.
--- NOTE | 2018-09-30 07:47 | Cardiac Electrophysiology PN ---
Assessment/Plan Assessment/Plan 1. 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 Chronic atrial fibrillation. Rate controlled off any antiarrhythmics. On Eliquis 5 mg bid. 3. Severe COPD. On Solu-Medrol. 4. Diastolic congestive heart failure. 5. Diabetes. 6. S/P resp failure for Left lung collapse. Extubated 7. Dysphagia, swallow eval peding DW RN Subjective Subjective In ICU alert awaiting swallow eval. In atrial fib with intermittent V pacing Objective Last 24 Hour Vital Signs Date Time Temp Pulse Resp B/P (MAP) Pulse Ox O2 Delivery O2 Flow Rate FiO2 09/30/18 07:11 98 Nasal Cannula 2.0 28 09/30/18 07:11 84 30 98 Nasal Cannula 2.0 28 09/30/18 07:11 Nasal Cannula 2.0 28 09/30/18 07:00 76 35 128/58 (81) 100 09/30/18 06:00 76 22 130/62 (84) 98 09/30/18 05:03 98.7 09/30/18 05:00 73 26 123/49 (73) 99 09/30/18 04:00 Nasal Cannula 2.0 Nasal Cannula 2.0 09/30/18 04:00 98.4 71 31 121/52 (75) 98 09/30/18 04:00 67 09/30/18 03:00 67 27 109/34 (59) 99 09/30/18 02:00 72 26 136/52 (80) 96 09/30/18 01:00 76 27 141/60 (87) 96 09/30/18 00:57 65 31 100 Nasal Cannula 2.0 28 09/30/18 00:44 70 28 98 Nasal Cannula 2.0 28 09/30/18 00:00 Nasal Cannula 2.0 Nasal Cannula 2.0 09/30/18 00:00 98.7 70 31 140/47 (78) 99 09/30/18 00:00 70 09/29/18 23:15 71 20 100 Nasal Cannula 2.0 28 09/29/18 23:01 68 20 97 Nasal Cannula 2.0 28 09/29/18 23:00 98.8 72 31 145/57 (86) 98 09/29/18 22:00 98.4 70 31 138/56 (83) 97 09/29/18 21:00 98.5 71 28 142/57 (85) 97 09/29/18 20:02 67 30 100 Nasal Cannula 2.0 28 09/29/18 20:00 Nasal Cannula 2.0 Nasal Cannula 2.0 09/29/18 20:00 83 09/29/18 20:00 98.6 71 30 142/57 (85) 94 09/29/18 19:51 Nasal Cannula 2.0 28 09/29/18 19:51 97 Nasal Cannula 2.0 28 09/29/18 19:48 73 24 98 Nasal Cannula 2.0 28 09/29/18 19:13 75 30 140/82 (101) 09/29/18 18:00 72 30 142/56 (84) 99 09/29/18 17:00 78 30 137/55 (82) 95 09/29/18 16:00 98.5 76 30 126/55 (78) 96 09/29/18 16:00 Nasal Cannula 2.0 Nasal Cannula 2.0 09/29/18 16:00 76 09/29/18 15:00 59 32 113/53 (73) 94 09/29/18 13:40 68 18 100 Nasal Cannula 2.0 28 09/29/18 13:30 70 18 98 Nasal Cannula 2.0 28 09/29/18 12:08 98.5 68 25 124/52 (76) 98 09/29/18 12:00 69 09/29/18 12:00 Nasal Cannula 2.0 Nasal Cannula 2.0 09/29/18 11:00 69 30 117/44 (68) 97 09/29/18 10:24 70 20 100 Nasal Cannula 2.0 28 09/29/18 10:00 70 20 96 Nasal Cannula 2.0 28 09/29/18 10:00 73 27 136/68 (90) 98 09/29/18 09:00 76 33 145/74 (97) 96 09/29/18 08:00 98.0 76 33 128/52 (77) 94 09/29/18 08:00 85 09/29/18 08:00 Nasal Cannula 2.0 Nasal Cannula 2.0 Intake and Output 09/29/18 09/30/18 19:00 07:00 Intake Total 1140 ml 1025 ml Output Total 1645 ml 550 ml Balance -505 ml 475 ml Free Water 200 ml 120 ml IV Total 55 ml Tube Feeding 660 ml 660 ml Other 280 ml 190 ml Output Urine Total 1645 ml 550 ml Laboratory Tests Test 09/29/18 08:00 09/30/18 02:05 Arterial Blood pH 7.424 (7.350-7.450) Arterial Blood Partial Pressure CO2 43.8 mmHg (35.0-45.0) Arterial Blood Partial Pressure O2 65.3 mmHg (75.0-100.0) L Arterial Blood HCO3 28.0 mmol/L (22.0-26.0) H Arterial Blood Oxygen Saturation 88.5 % (95-100) *L Arterial Blood Base Excess 3.2 (-2-2) H Ian Test Positive White Blood Count 12.0 K/UL (4.8-10.8) H Red Blood Count 3.64 M/UL (4.20-5.40) L Hemoglobin 9.4 G/DL (12.0-16.0) L Hematocrit 30.1 % (37.0-47.0) L Mean Corpuscular Volume 83 FL (80-99) Mean Corpuscular Hemoglobin 25.8 PG (27.0-31.0) L Mean Corpuscular Hemoglobin Concent 31.2 G/DL (32.0-36.0) L Red Cell Distribution Width 19.2 % (11.6-14.8) H Platelet Count 193 K/UL (150-450) Mean Platelet Volume 9.0 FL (6.5-10.1) Neutrophils (%) (Auto) 81.0 % (45.0-75.0) H Lymphocytes (%) (Auto) 12.2 % (20.0-45.0) L Monocytes (%) (Auto) 5.3 % (1.0-10.0) Eosinophils (%) (Auto) 1.1 % (0.0-3.0) Basophils (%) (Auto) 0.5 % (0.0-2.0) Sodium Level 141 MMOL/L (136-145) Potassium Level 4.3 MMOL/L (3.5-5.1) Chloride Level 105 MMOL/L (98-107) Carbon Dioxide Level 32 MMOL/L (21-32) Anion Gap 4 mmol/L (5-15) L Blood Urea Nitrogen 20 mg/dL (7-18) H Creatinine 0.5 MG/DL (0.55-1.30) L Estimat Glomerular Filtration Rate mL/min (>60) Glucose Level 102 MG/DL (74-106) Calcium Level 9.1 MG/DL (8.5-10.1) Phosphorus Level 4.1 MG/DL (2.5-4.9) Magnesium Level 2.2 MG/DL (1.8-2.4) Total Bilirubin 0.4 MG/DL (0.2-1.0) Aspartate Amino Transf (AST/SGOT) 28 U/L (15-37) Alanine Aminotransferase (ALT/SGPT) 55 U/L (12-78) Alkaline Phosphatase 51 U/L (46-116) Total Protein 6.3 G/DL (6.4-8.2) L Albumin 2.7 G/DL (3.4-5.0) L Globulin 3.6 g/dL Albumin/Globulin Ratio 0.8 (1.0-2.7) L Vancomycin Level Trough 9.5 ug/mL (5.0-12.0) Microbiology Date/Time Source Procedure Growth Status 09/29/18 04:45 Blood Blood Culture - Preliminary NO GROWTH AFTER 24 HOURS Resulted 09/29/18 04:40 Blood Blood Culture - Preliminary NO GROWTH AFTER 24 HOURS Resulted Objective HEAD AND NECK: Mild JVD. LUNGS: Coarse rhonchi bilaterally. Decrease breath sounds on the left CARDIOVASCULAR: Irregular S1 and S2 with no gallop. ABDOMEN: Soft. EXTREMITIES: No edema. Yohan Milian MD September 30, 2018 07:47
[2018-09-30] MEDS: Docusate 100mg/10ml Liq ORAL SCH ×3 (08:46→17:40)
[2018-09-30] MEDS: Eliquis 5mg tablet ORAL SCH ×2 (08:48→17:40)
[2018-09-30] MEDS: Pantoprazole Inj IV SCH (08:50)
[2018-09-30] MEDS: Thiamine 100mg tab ORAL SCH (08:51)
--- NOTE | 2018-09-30 09:30 | NUR ---
NURSE NOTES: Patient complaining of pain at this time. Patient given morphine at this time. Patient complaining of 7/10 pain. Patient bed in low position with bed alarm on and call light in reach. Patient requesting oral cleaning at this time. Oral cleaning performed. Patient turned.
--- NOTE | 2018-09-30 09:57 | Pulmonolgy Critical Care Note ---
Critical Care - Asmt/Plan Problems: (1) Respiratory failure, acute (2) Collapse of left lung Assessment & Plan: resolved (3) Atrial fibrillation with RVR (4) Hyponatremia (5) COPD (chronic obstructive pulmonary disease) (6) Anemia, chronic disease Respiratory: monitor respiratory rate, adjust FIO2, CXR Cardiac: continue to monitor HR/BP Renal: F/U I&O, keep IV fluid, check electrolytes Infectious Disease: check cultures Gastrointestinal: continue feedings/current rate Endocrine: monitor blood sugar Hematologic: monitor H/H, transfuse if hgb<8.5 Neurologic: PRN Ativan, PRN Morphine, keep patient comfortable Prophylaxis: Protonix, Heparin Time Spent (Minutes): 40 Notes Reviewed: cardio, renal Discussed with: nurses, consultants, gearcase assemblermanager metrology - Objective Last 24 Hour Vital Signs Date Time Temp Pulse Resp B/P (MAP) Pulse Ox O2 Delivery O2 Flow Rate FiO2 09/30/18 08:00 98.3 75 24 128/58 (81) 96 09/30/18 08:00 Nasal Cannula 2.0 Nasal Cannula 2.0 09/30/18 07:19 81 30 100 Nasal Cannula 2.0 28 09/30/18 07:11 98 Nasal Cannula 2.0 28 09/30/18 07:11 84 30 98 Nasal Cannula 2.0 28 09/30/18 07:11 Nasal Cannula 2.0 28 09/30/18 07:00 76 35 128/58 (81) 100 09/30/18 06:00 76 22 130/62 (84) 98 09/30/18 05:03 98.7 09/30/18 05:00 73 26 123/49 (73) 99 09/30/18 04:00 Nasal Cannula 2.0 Nasal Cannula 2.0 09/30/18 04:00 98.4 71 31 121/52 (75) 98 09/30/18 04:00 67 09/30/18 03:00 67 27 109/34 (59) 99 09/30/18 02:00 72 26 136/52 (80) 96 09/30/18 01:00 76 27 141/60 (87) 96 09/30/18 00:57 65 31 100 Nasal Cannula 2.0 28 09/30/18 00:44 70 28 98 Nasal Cannula 2.0 28 09/30/18 00:00 Nasal Cannula 2.0 Nasal Cannula 2.0 09/30/18 00:00 98.7 70 31 140/47 (78) 99 09/30/18 00:00 70 09/29/18 23:15 71 20 100 Nasal Cannula 2.0 28 09/29/18 23:01 68 20 97 Nasal Cannula 2.0 28 09/29/18 23:00 98.8 72 31 145/57 (86) 98 09/29/18 22:00 98.4 70 31 138/56 (83) 97 09/29/18 21:00 98.5 71 28 142/57 (85) 97 09/29/18 20:02 67 30 100 Nasal Cannula 2.0 28 09/29/18 20:00 Nasal Cannula 2.0 Nasal Cannula 2.0 09/29/18 20:00 83 09/29/18 20:00 98.6 71 30 142/57 (85) 94 09/29/18 19:51 Nasal Cannula 2.0 28 09/29/18 19:51 97 Nasal Cannula 2.0 28 09/29/18 19:48 73 24 98 Nasal Cannula 2.0 28 09/29/18 19:13 75 30 140/82 (101) 09/29/18 18:00 72 30 142/56 (84) 99 09/29/18 17:00 78 30 137/55 (82) 95 09/29/18 16:00 98.5 76 30 126/55 (78) 96 09/29/18 16:00 Nasal Cannula 2.0 Nasal Cannula 2.0 09/29/18 16:00 76 09/29/18 15:00 59 32 113/53 (73) 94 09/29/18 13:40 68 18 100 Nasal Cannula 2.0 28 09/29/18 13:30 70 18 98 Nasal Cannula 2.0 28 09/29/18 12:08 98.5 68 25 124/52 (76) 98 09/29/18 12:00 69 09/29/18 12:00 Nasal Cannula 2.0 Nasal Cannula 2.0 09/29/18 11:00 69 30 117/44 (68) 97 09/29/18 10:24 70 20 100 Nasal Cannula 2.0 28 09/29/18 10:00 70 20 96 Nasal Cannula 2.0 28 09/29/18 10:00 73 27 136/68 (90) 98 Status: awake Condition: improving HEENT: atraumatic Lungs: rales, rhonchi Heart: HR/BP stable Abdomen: soft, non-tender, feeding tube Extremities: edema Decubiti: stage Micro: Microbiology Date/Time Source Procedure Growth Status 09/29/18 04:45 Blood Blood Culture - Preliminary NO GROWTH AFTER 24 HOURS Resulted 09/29/18 04:40 Blood Blood Culture - Preliminary NO GROWTH AFTER 24 HOURS Resulted Critical Care - Subjective ROS Limited/Unobtainable: Yes Interval Events: tolerating extubation Condition: critical FI02: 28 Vent Support Breath Rate: 16 Vent Support Mode: CPAP Vent Tidal Volume: 600 Sputum Amount: None PEEP: 5.0 PIP: 14 Tube Feeding Amount: 55 I&O: Intake and Output 09/29/18 09/30/18 19:00 07:00 Intake Total 1140 ml 1025 ml Output Total 1645 ml 550 ml Balance -505 ml 475 ml Free Water 200 ml 120 ml IV Total 55 ml Tube Feeding 660 ml 660 ml Other 280 ml 190 ml Output Urine Total 1645 ml 550 ml CXR: no change Labs: Laboratory Tests Test 09/30/18 02:05 09/30/18 07:56 White Blood Count 12.0 K/UL (4.8-10.8) H Red Blood Count 3.64 M/UL (4.20-5.40) L Hemoglobin 9.4 G/DL (12.0-16.0) L Hematocrit 30.1 % (37.0-47.0) L Mean Corpuscular Volume 83 FL (80-99) Mean Corpuscular Hemoglobin 25.8 PG (27.0-31.0) L Mean Corpuscular Hemoglobin Concent 31.2 G/DL (32.0-36.0) L Red Cell Distribution Width 19.2 % (11.6-14.8) H Platelet Count 193 K/UL (150-450) Mean Platelet Volume 9.0 FL (6.5-10.1) Neutrophils (%) (Auto) 81.0 % (45.0-75.0) H Lymphocytes (%) (Auto) 12.2 % (20.0-45.0) L Monocytes (%) (Auto) 5.3 % (1.0-10.0) Eosinophils (%) (Auto) 1.1 % (0.0-3.0) Basophils (%) (Auto) 0.5 % (0.0-2.0) Sodium Level 141 MMOL/L (136-145) Potassium Level 4.3 MMOL/L (3.5-5.1) Chloride Level 105 MMOL/L (98-107) Carbon Dioxide Level 32 MMOL/L (21-32) Anion Gap 4 mmol/L (5-15) L Blood Urea Nitrogen 20 mg/dL (7-18) H Creatinine 0.5 MG/DL (0.55-1.30) L Estimat Glomerular Filtration Rate mL/min (>60) Glucose Level 102 MG/DL (74-106) Calcium Level 9.1 MG/DL (8.5-10.1) Phosphorus Level 4.1 MG/DL (2.5-4.9) Magnesium Level 2.2 MG/DL (1.8-2.4) Total Bilirubin 0.4 MG/DL (0.2-1.0) Aspartate Amino Transf (AST/SGOT) 28 U/L (15-37) Alanine Aminotransferase (ALT/SGPT) 55 U/L (12-78) Alkaline Phosphatase 51 U/L (46-116) Total Protein 6.3 G/DL (6.4-8.2) L Albumin 2.7 G/DL (3.4-5.0) L Globulin 3.6 g/dL Albumin/Globulin Ratio 0.8 (1.0-2.7) L Vancomycin Level Trough 9.5 ug/mL (5.0-12.0) Arterial Blood pH 7.415 (7.350-7.450) Arterial Blood Partial Pressure CO2 48.3 mmHg (35.0-45.0) H Arterial Blood Partial Pressure O2 67.8 mmHg (75.0-100.0) L Arterial Blood HCO3 30.3 mmol/L (22.0-26.0) H Arterial Blood Oxygen Saturation 92.5 % (95-100) L Arterial Blood Base Excess 5.0 (-2-2) H Ian Test Positive Mendel Sierra MD September 30, 2018 09:57
[2018-09-30] MEDS: Colistin for inhalation INH SCH ×2 (10:11→23:34)
--- NOTE | 2018-09-30 11:30 | NUR ---
NURSE NOTES: Patient bed in low position with bed alarm on and call light in reach. Patient VS stable at this time. Patient sleeping. Patient awaiting transfer to telemetry at this time. Dr Milian requested that the patient go to [facility]. Will clarify with Dr Sierra to ensure that he still wants the patient to go to telemetry.
--- NOTE | 2018-09-30 13:01 | Internal Med Progress Note ---
Subjective Date of Service: September 30, 2018 Physician Name Juan Dutta Attending Physician Yonathan Mendoza MD Current Medications Medications (Trade) Dose Ordered Sig/Ibrahima Route PRN Reason Start Time Stop Time Status Last Admin Dose Admin Acetaminophen (Tylenol) 650 mg Q4H PRN ORAL Mild Pain (Pain Scale 1-3) 09/22/18 12:47 10/21/18 12:46 09/29/18 16:22 Acetazolamide (Diamox) 250 mg TWICE A DAY ORAL 09/30/18 09:00 10/30/18 08:59 09/30/18 10:39 Apixaban (Eliquis) 5 mg BID ORAL 09/29/18 18:00 10/19/18 17:59 09/30/18 08:48 Cefepime HCl 1 gm/ Dextrose 55 ml @ 110 mls/hr Q24H IVPB 09/25/18 01:00 10/02/18 00:59 09/30/18 00:12 Colistimethate Sodium (Colistin *inhalation use only*) 150 mg Q12HR@10,22 INH 09/26/18 10:00 10/03/18 09:59 09/30/18 10:11 Dextrose (Dextrose 50%) 25 ml Q30M PRN IV Hypoglycemia 09/22/18 13:00 10/17/18 06:59 Dextrose (Dextrose 50%) 50 ml Q30M PRN IV Hypoglycemia 09/22/18 13:00 10/17/18 06:59 Docusate Sodium (Colace) 100 mg TID ORAL 09/22/18 13:00 10/19/18 08:59 09/30/18 08:46 Folic Acid (Folate) 5 mg DAILY ORAL 09/23/18 09:00 10/18/18 09:59 09/30/18 08:48 Furosemide (Lasix) 40 mg DAILY IV 09/26/18 09:00 10/26/18 08:59 09/30/18 08:46 Morphine Sulfate (Morphine Sulfate) 2 mg Q4H PRN IVP Moderate Pain (Pain Scale 4-6) 09/29/18 18:45 10/06/18 18:44 09/30/18 08:47 Morphine Sulfate (Morphine Sulfate) 4 mg Q4H PRN IVP Severe Pain (Pain Scale 7-10) 09/29/18 18:45 10/06/18 18:44 Ondansetron HCl (Zofran) 4 mg Q6H PRN IVP Nausea & Vomiting 09/22/18 12:49 10/21/18 12:48 Pantoprazole (Protonix) 40 mg DAILY IV 09/23/18 09:00 10/23/18 08:59 09/30/18 08:50 Polyethylene Glycol (Miralax) 17 gm DAILYPRN PRN ORAL Constipation 09/22/18 12:50 10/21/18 12:49 Potassium Chloride (K-Dur) 40 meq DAILY NGT 09/30/18 09:00 10/27/18 12:44 09/30/18 08:50 Prednisone (predniSONE) 30 mg DAILY ORAL 09/28/18 09:00 10/20/18 08:59 09/30/18 08:50 Risperidone (RisperDAL) 1 mg BEDTIME ORAL 09/22/18 21:00 10/17/18 20:59 09/29/18 20:35 Thiamine HCl (Vitamin B1) 100 mg DAILY ORAL 09/23/18 09:00 10/20/18 08:59 09/30/18 08:51 Vancomycin HCl (Vanco rx to dose) 1 ea DAILY PRN MISC Per rx protocol 09/25/18 13:15 10/25/18 13:14 Vancomycin HCl 500 mg/Dextrose 110 ml @ 110 mls/hr Q8HR@0300,1100,1900 IVPB 09/30/18 11:00 10/05/18 10:59 09/30/18 10:40 Allergies: Coded Allergies: PIPERACILLIN (Unverified Allergy, Unknown, 05/21/18) tolerates cephalosporins TAZOBACTAM (Unverified Allergy, Unknown, 03/10/18) ROS Limited/Unobtainable: No Constitutional: Reports: no symptoms HEENT: Reports: no symptoms Cardiovascular: Reports: no symptoms Respiratory: Reports: no symptoms Gastrointestinal/Abdominal: Reports: no symptoms Genitourinary: Reports: no symptoms Neurologic/Psychiatric: Reports: no symptoms Subjective 77 YO F admitted for respiratory distress. Now left lung opacification. Extubated 09/28/18. Cover for Nick Mendoza. ICU Objective Last Vital Signs Date Time Temp Pulse Resp B/P (MAP) Pulse Ox O2 Delivery O2 Flow Rate FiO2 09/30/18 12:00 84 09/30/18 12:00 Nasal Cannula 2.0 Nasal Cannula 2.0 09/30/18 12:00 98.7 32 111/46 (67) 99 09/30/18 10:22 28 Laboratory Tests Test 09/30/18 02:05 09/30/18 07:56 White Blood Count 12.0 K/UL (4.8-10.8) H Red Blood Count 3.64 M/UL (4.20-5.40) L Hemoglobin 9.4 G/DL (12.0-16.0) L Hematocrit 30.1 % (37.0-47.0) L Mean Corpuscular Volume 83 FL (80-99) Mean Corpuscular Hemoglobin 25.8 PG (27.0-31.0) L Mean Corpuscular Hemoglobin Concent 31.2 G/DL (32.0-36.0) L Red Cell Distribution Width 19.2 % (11.6-14.8) H Platelet Count 193 K/UL (150-450) Mean Platelet Volume 9.0 FL (6.5-10.1) Neutrophils (%) (Auto) 81.0 % (45.0-75.0) H Lymphocytes (%) (Auto) 12.2 % (20.0-45.0) L Monocytes (%) (Auto) 5.3 % (1.0-10.0) Eosinophils (%) (Auto) 1.1 % (0.0-3.0) Basophils (%) (Auto) 0.5 % (0.0-2.0) Sodium Level 141 MMOL/L (136-145) Potassium Level 4.3 MMOL/L (3.5-5.1) Chloride Level 105 MMOL/L (98-107) Carbon Dioxide Level 32 MMOL/L (21-32) Anion Gap 4 mmol/L (5-15) L Blood Urea Nitrogen 20 mg/dL (7-18) H Creatinine 0.5 MG/DL (0.55-1.30) L Estimat Glomerular Filtration Rate mL/min (>60) Glucose Level 102 MG/DL (74-106) Calcium Level 9.1 MG/DL (8.5-10.1) Phosphorus Level 4.1 MG/DL (2.5-4.9) Magnesium Level 2.2 MG/DL (1.8-2.4) Total Bilirubin 0.4 MG/DL (0.2-1.0) Aspartate Amino Transf (AST/SGOT) 28 U/L (15-37) Alanine Aminotransferase (ALT/SGPT) 55 U/L (12-78) Alkaline Phosphatase 51 U/L (46-116) Total Protein 6.3 G/DL (6.4-8.2) L Albumin 2.7 G/DL (3.4-5.0) L Globulin 3.6 g/dL Albumin/Globulin Ratio 0.8 (1.0-2.7) L Vancomycin Level Trough 9.5 ug/mL (5.0-12.0) Arterial Blood pH 7.415 (7.350-7.450) Arterial Blood Partial Pressure CO2 48.3 mmHg (35.0-45.0) H Arterial Blood Partial Pressure O2 67.8 mmHg (75.0-100.0) L Arterial Blood HCO3 30.3 mmol/L (22.0-26.0) H Arterial Blood Oxygen Saturation 92.5 % (95-100) L Arterial Blood Base Excess 5.0 (-2-2) H Ian Test Positive Microbiology Date/Time Source Procedure Growth Status 09/29/18 04:45 Blood Blood Culture - Preliminary NO GROWTH AFTER 24 HOURS Resulted 09/29/18 04:40 Blood Blood Culture - Preliminary NO GROWTH AFTER 24 HOURS Resulted Intake and Output 09/29/18 09/30/18 18:59 06:59 Intake Total 1135 ml 1025 ml Output Total 1675 ml 545 ml Balance -540 ml 480 ml Free Water 200 ml 120 ml IV Total 55 ml Tube Feeding 655 ml 660 ml Other 280 ml 190 ml Output Urine Total 1675 ml 545 ml Objective PHYSICAL EXAMINATION: GENERAL: The patient is a well-developed and well-nourished white female, who is in moderate respiratory distress. HEENT: Eyes, pupils are equal and responsive to light and accommodation. Extraocular movements are intact. NECK: Supple without lymphadenopathy. CHEST: Nasal Canula; Few rales in bilateral bases, otherwise, Lungs are clear to auscultation bilaterally without wheezes CARDIOVASCULAR: Regular rhythm and rate. S1 and S2 normal without murmurs, rubs, or gallops. ABDOMEN: Soft, nontender, and nondistended. Positive bowel sounds. No evidence of hepatosplenomegaly. Currently, no rebound or guarding noted. EXTREMITIES: Negative for clubbing, cyanosis, or edema. RECTAL/GENITAL: Refused. NEUROLOGIC: Cranial nerves II through XII are grossly intact without focal deficits. Motor strength is 5/5 bilaterally. Deep tendon reflexes are 2+ plantar. Assessment/Plan Assessment/Plan ASSESSMENT: This is a 77-year-old white female with: 1. Shortness of breath. 2. Hypoxia. 3. Acute on chronic congestive heart failure. 4. Atrial flutter. 5. Hyponatremia. 6. Chronic obstructive pulmonary disease. 7. Coronary artery disease. 8. Hypertension. 9. Seizure disorder. 10. Paranoid schizophrenia. 11. Intraventricular pacemaker 12. left lung opacification-collapse per CT TREATMENT: 1. Shortness of breath/congestive heart failure. Extubated 09/28/[address] Sierra[address] Cardiologyconsultation has been obtained with Dr. Milian. The patient is currently receiving intravenous Lasix. We will follow recommendation of Cardiology. BNP is elevated at over greater than 5000. An echocardiogram is pending. 2. Atrial flutter. Continue Eliquis as above. 3. Hyponatremia. The patient is currently receiving intravenous fluids. 4. Chronic obstructive pulmonary disease. Continue DuoNeb nebulized as above. The patient was initially placed on BiPAP in the emergency room. A Pulmonary consultation has been obtained with Dr. Mendel Sierra. 5. Hypertension. Continue Lasix as above. 6. Seizure disorder. The patient is currently off antiseizure medication. 7. Paranoid schizophrenia. Continue Risperdal as above. Juan Dutta MD September 30, 2018 13:01
--- NOTE | 2018-09-30 13:30 | NUR ---
NURSE NOTES: Patient VS stable at this time. Patient complaining of pain at this time. Will follow up with pain medication when possible. Patient says that thinks she has an ear infection. Will notify MD. Patient already on antibiotics. Will continue to monitor. Bed in low position with bed alarm on.
--- NOTE | 2018-09-30 14:26 | Nephrology Progress Note ---
Assessment/Plan Problem List: (1) Respiratory failure, acute (2) Hyponatremia (3) Seizure disorder (4) Acute diastolic CHF (congestive heart failure) (5) COPD (chronic obstructive pulmonary disease) (6) Pacemaker Assessment Now extubated HypoNatremia ? Etiology: depletional / Diuretics / SIADH ... bronchoscopy for left lung collapse Acute respiratory failure on BIPAP- COPD Encephalopathy due to high CO2 Pacemaker UTI Low MCV Anemia Hypoalbuminemia EjFx 55% last admission h/o Atfib Plan resume diamox K supplement as needed taper steroid now extubated since 09/28 Off Diamox for now López PRN lasix IV iron monitor lytes Anemia clinton per orders Subjective ROS Limited/Unobtainable: No Constitutional: Reports: malaise Objective Objective Last 24 Hour Vital Signs Date Time Temp Pulse Resp B/P (MAP) Pulse Ox O2 Delivery O2 Flow Rate FiO2 09/30/18 13:00 77 32 118/61 (80) 100 09/30/18 12:00 84 09/30/18 12:00 Nasal Cannula 2.0 Nasal Cannula 2.0 09/30/18 12:00 98.7 80 32 111/46 (67) 99 09/30/18 11:00 76 28 106/50 (68) 99 09/30/18 10:22 75 22 100 Nasal Cannula 2.0 28 09/30/18 10:12 74 24 97 Nasal Cannula 2.0 28 09/30/18 10:00 76 28 91/72 (78) 100 09/30/18 09:00 79 31 119/34 (62) 97 09/30/18 08:00 75 09/30/18 08:00 98.3 75 24 128/58 (81) 96 09/30/18 08:00 Nasal Cannula 2.0 Nasal Cannula 2.0 09/30/18 07:19 81 30 100 Nasal Cannula 2.0 28 09/30/18 07:11 98 Nasal Cannula 2.0 28 09/30/18 07:11 84 30 98 Nasal Cannula 2.0 28 09/30/18 07:11 Nasal Cannula 2.0 28 09/30/18 07:00 76 35 128/58 (81) 100 09/30/18 06:00 76 22 130/62 (84) 98 09/30/18 05:03 98.7 09/30/18 05:00 73 26 123/49 (73) 99 5/1/19 04:00 Nasal Cannula 2.0 Nasal Cannula 2.0 09/30/18 04:00 98.4 71 31 121/52 (75) 98 09/30/18 04:00 67 09/30/18 03:00 67 27 109/34 (59) 99 09/30/18 02:00 72 26 136/52 (80) 96 09/30/18 01:00 76 27 141/60 (87) 96 09/30/18 00:57 65 31 100 Nasal Cannula 2.0 28 09/30/18 00:44 70 28 98 Nasal Cannula 2.0 28 09/30/18 00:00 Nasal Cannula 2.0 Nasal Cannula 2.0 09/30/18 00:00 98.7 70 31 140/47 (78) 99 09/30/18 00:00 70 09/29/18 23:15 71 20 100 Nasal Cannula 2.0 28 09/29/18 23:01 68 20 97 Nasal Cannula 2.0 28 09/29/18 23:00 98.8 72 31 145/57 (86) 98 09/29/18 22:00 98.4 70 31 138/56 (83) 97 09/29/18 21:00 98.5 71 28 142/57 (85) 97 09/29/18 20:02 67 30 100 Nasal Cannula 2.0 28 09/29/18 20:00 Nasal Cannula 2.0 Nasal Cannula 2.0 09/29/18 20:00 83 09/29/18 20:00 98.6 71 30 142/57 (85) 94 09/29/18 19:51 Nasal Cannula 2.0 28 09/29/18 19:51 97 Nasal Cannula 2.0 28 09/29/18 19:48 73 24 98 Nasal Cannula 2.0 28 09/29/18 19:13 75 30 140/82 (101) 09/29/18 18:00 72 30 142/56 (84) 99 09/29/18 17:00 78 30 137/55 (82) 95 09/29/18 16:00 98.5 76 30 126/55 (78) 96 09/29/18 16:00 Nasal Cannula 2.0 Nasal Cannula 2.0 09/29/18 16:00 76 09/29/18 15:00 59 32 113/53 (73) 94 Intake and Output 4/30/19 5/1/19 18:59 06:59 Intake Total 1135 ml 1025 ml Output Total 1675 ml 545 ml Balance -540 ml 480 ml Free Water 200 ml 120 ml IV Total 55 ml Tube Feeding 655 ml 660 ml Other 280 ml 190 ml Output Urine Total 1675 ml 545 ml Laboratory Tests 09/30/18 02:05: White Blood Count 12.0H, Red Blood Count 3.64L, Hemoglobin 9.4L, Hematocrit 30.1L, Mean Corpuscular Volume 83, Mean Corpuscular Hemoglobin 25.8L, Mean Corpuscular Hemoglobin Concent 31.2L, Red Cell Distribution Width 19.2H, Platelet Count 193, Mean Platelet Volume 9.0, Neutrophils (%) (Auto) 81.0H, Lymphocytes (%) (Auto) 12.2L, Monocytes (%) (Auto) 5.3, Eosinophils (%) (Auto) 1.1, Basophils (%) (Auto) 0.5, Sodium Level 141, Potassium Level 4.3, Chloride Level 105, Carbon Dioxide Level 32, Anion Gap 4L, Blood Urea Nitrogen 20H, Creatinine 0.5L, Estimat Glomerular Filtration Rate , Glucose Level 102, Calcium Level 9.1, Phosphorus Level 4.1, Magnesium Level 2.2, Total Bilirubin 0.4, Aspartate Amino Transf (AST/SGOT) 28, Alanine Aminotransferase (ALT/SGPT) 55, Alkaline Phosphatase 51, Total Protein 6.3L, Albumin 2.7L, Globulin 3.6, Albumin/Globulin Ratio 0.8L, Vancomycin Level Trough 9.5 09/30/18 07:56: Arterial Blood pH 7.415, Arterial Blood Partial Pressure CO2 48.3H, Arterial Blood Partial Pressure O2 67.8L, Arterial Blood HCO3 30.3H, Arterial Blood Oxygen Saturation 92.5L, Arterial Blood Base Excess 5.0H, Ian Test Positive Height (Feet): 5 Weight (Pounds): 196 General Appearance: no apparent distress EENT: other - extubated Respiratory/Chest: decreased breath sounds Abdomen: distended, other - NGT Objective no change Danilo Huber MD September 30, 2018 14:26
--- NOTE | 2018-09-30 15:30 | NUR ---
NURSE NOTES: Took off one restraint for a few hours while reminding the patient not to pull at any tubing. Patient has not attempted to pull at NGT or IV line. Will take off the other restraint and continue to monitor.
--- NOTE | 2018-09-30 16:00 | NUR ---
NURSE NOTES: Restraints discontinued. Patient expresses understanding that she should not pull on nasogastric tube or IV line. Patient has not attempted to do so while restraints have been off. The order and intervention have been discontinued at this time.
--- NOTE | 2018-09-30 17:00 | NUR ---
NURSE NOTES: Patient given full bed bath and linen changed at this time.
--- NOTE | 2018-09-30 18:30 | NUR ---
NURSE NOTES: Patient complaining of pain at this time. Pain medication administered. Patient vital signs stable at this time. Patient oral care completed at this time. Bed in low position with bed alarm on and call light in reach.
--- NOTE | 2018-09-30 19:05 | NUR ---
NURSE NOTES: Report received from Yaquelin Harley RN. Pt A/Ox3, forgetful. director engineering shows A.fib. Pt on 2LNC, showing no signs of cardiac or respiratory distress. An NGT is located on the right nare with glucerna 1.2 running @ 55 ml/hr. López catheter present, patent, and draining well. Pt present with sacral scabbing and bilateral heel redness. a [id number] peripheral IV is present and patent. Pt has an order for transfer to SDU. Bed in lowest position, bed alarms placed, call light within reach. Will continue to monitor and with patients plan of care.
--- NOTE | 2018-09-30 19:22 | NUR ---
HAND-OFF: Report given to CHARLETTE Varner. Patient VS stable at this time with no sign of acute distress.
--- NOTE | 2018-09-30 19:24 | Infectious Diseases Prog Note ---
Assessment/Plan Assessment/Plan Assessment: Low grade fever x1, SP Leukocytosis, SP Probable PNA -sp cx MSSA, ABC ( S cefepime, Meropenem) -09/24 CXR: There is persistent opacity at the left lung base. -09/21 CT chest: Completely atelectatic left lung. This is likely due to endobronchial occlusion by debris. However, a small pulmonary hilar mass may also be present. This finding was discussed by phone with Dr. Sierra previously. Small left pleural effusion. Trace right pleural effusion. Posterior and basilar atelectatic changes of the right lung. Single enlarged aortopulmonary window lymph node. This could be neoplastic or reactive. This is increased in size since prior study 03/13/2018. Right lung groundglass opacity, nonspecific but likely on the basis of mild pulmonary edema. Mild cardiomegaly. Pericardial effusion Probable UTI -09/24 u/a wbc tnct nit +, leuk +3; ucx>100k EColi Gram positive bacteremia- real vs contamination -09/24 Bcx 06/05 ConS, 09/26 06/03 : Staph epid Hx of recurrent CONS bacteremia -07/28/18 Bcx 07/06 CONS; 07/29 Bcx Neg; 08/23 BCx neg -2d echo: no obvious vegetation -05/19/18 Bcx 3/ S. hominis sp hominis; 05/21 Bc xNeg 2d eCho: no vegetations. Focal aortic valve sclerosis with reduced cusp excursion. Thickened mitral valve leaflets with reduced excursion. 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, s/p Rx SP VDRF, 04/10 Sp extubated Legionella Ur Ag: Neg, Legionella IgM + / IgG - Scx: No sig growth Flu screen negative Acute on chronic respiratory failure s/p intubation 09/22, 09/28 extubated CHF and COPD exacerbation Atrial flutter dCHF COPD CAD s/p stents Hypertension Seizure disorder Schizophrenia Depression History of intraventricular pacemaker implantation GERD CVA/TIA b/l hip replacement hx of L DVT history of alcohol abuse hx of recurrent admissions hx of high grade CONS bacteremia SNF resident Plan: -Cont empiric Cefepime # for PNA and UTI and IV Vancomycin # ( may treat for Probable SBE, hx of recurrent CoNS bactremia ) for bacteremia pending ID and sensi and repeat Bcx - INH colistin d# 10/06 -Bcx x2 -f/u cx -Monitor CBC/CMP, temperatures -Cdiff if diarrhea - aspiration precautions Subjective Allergies: Coded Allergies: PIPERACILLIN (Unverified Allergy, Unknown, 05/21/18) tolerates cephalosporins TAZOBACTAM (Unverified Allergy, Unknown, 03/10/18) Subjective afebrile Objective Vital Signs Last 24 Hour Vital Signs Date Time Temp Pulse Resp B/P (MAP) Pulse Ox O2 Delivery O2 Flow Rate FiO2 09/30/18 19:00 72 28 129/50 (76) 100 09/30/18 18:00 78 28 128/63 (84) 99 09/30/18 17:00 79 21 120/60 (80) 100 09/30/18 16:00 98.7 76 21 111/58 (75) 100 09/30/18 16:00 Nasal Cannula 2.0 Nasal Cannula 2.0 09/30/18 16:00 76 09/30/18 15:00 76 27 102/66 (78) 99 09/30/18 14:00 77 26 122/53 (76) 100 09/30/18 13:00 77 32 118/61 (80) 100 09/30/18 12:00 84 09/30/18 12:00 Nasal Cannula 2.0 Nasal Cannula 2.0 09/30/18 12:00 98.7 80 32 111/46 (67) 99 09/30/18 11:00 76 28 106/50 (68) 99 09/30/18 10:22 75 22 100 Nasal Cannula 2.0 28 09/30/18 10:12 74 24 97 Nasal Cannula 2.0 28 09/30/18 10:00 76 28 91/72 (78) 100 09/30/18 09:00 79 31 119/34 (62) 97 09/30/18 08:00 75 09/30/18 08:00 98.3 75 24 128/58 (81) 96 09/30/18 08:00 Nasal Cannula 2.0 Nasal Cannula 2.0 09/30/18 07:19 81 30 100 Nasal Cannula 2.0 28 09/30/18 07:11 98 Nasal Cannula 2.0 28 09/30/18 07:11 84 30 98 Nasal Cannula 2.0 28 09/30/18 07:11 Nasal Cannula 2.0 28 09/30/18 07:00 76 35 128/58 (81) 100 09/30/18 06:00 76 22 130/62 (84) 98 09/30/18 05:03 98.7 09/30/18 05:00 73 26 123/49 (73) 99 09/30/18 04:00 Nasal Cannula 2.0 Nasal Cannula 2.0 09/30/18 04:00 98.4 71 31 121/52 (75) 98 09/30/18 04:00 67 09/30/18 03:00 67 27 109/34 (59) 99 09/30/18 02:00 72 26 136/52 (80) 96 09/30/18 01:00 76 27 141/60 (87) 96 09/30/18 00:57 65 31 100 Nasal Cannula 2.0 28 09/30/18 00:44 70 28 98 Nasal Cannula 2.0 28 09/30/18 00:00 Nasal Cannula 2.0 Nasal Cannula 2.0 09/30/18 00:00 98.7 70 31 140/47 (78) 99 09/30/18 00:00 70 09/29/18 23:15 71 20 100 Nasal Cannula 2.0 28 09/29/18 23:01 68 20 97 Nasal Cannula 2.0 28 09/29/18 23:00 98.8 72 31 145/57 (86) 98 09/29/18 22:00 98.4 70 31 138/56 (83) 97 09/29/18 21:00 98.5 71 28 142/57 (85) 97 09/29/18 20:02 67 30 100 Nasal Cannula 2.0 28 09/29/18 20:00 Nasal Cannula 2.0 Nasal Cannula 2.0 09/29/18 20:00 83 09/29/18 20:00 98.6 71 30 142/57 (85) 94 09/29/18 19:51 Nasal Cannula 2.0 28 09/29/18 19:51 97 Nasal Cannula 2.0 28 09/29/18 19:48 73 24 98 Nasal Cannula 2.0 28 Height (Feet): 5 Weight (Pounds): 196 HEENT: mucous membranes moist Respiratory/Chest: normal breath sounds Cardiovascular: regular rhythm Abdomen: no organomegaly Microbiology Date/Time Source Procedure Growth Status 09/29/18 04:45 Blood Blood Culture - Preliminary NO GROWTH AFTER 24 HOURS Resulted 09/29/18 04:40 Blood Blood Culture - Preliminary NO GROWTH AFTER 24 HOURS Resulted Laboratory Tests Test 09/30/18 02:05 09/30/18 07:56 White Blood Count 12.0 K/UL (4.8-10.8) H Red Blood Count 3.64 M/UL (4.20-5.40) L Hemoglobin 9.4 G/DL (12.0-16.0) L Hematocrit 30.1 % (37.0-47.0) L Mean Corpuscular Volume 83 FL (80-99) Mean Corpuscular Hemoglobin 25.8 PG (27.0-31.0) L Mean Corpuscular Hemoglobin Concent 31.2 G/DL (32.0-36.0) L Red Cell Distribution Width 19.2 % (11.6-14.8) H Platelet Count 193 K/UL (150-450) Mean Platelet Volume 9.0 FL (6.5-10.1) Neutrophils (%) (Auto) 81.0 % (45.0-75.0) H Lymphocytes (%) (Auto) 12.2 % (20.0-45.0) L Monocytes (%) (Auto) 5.3 % (1.0-10.0) Eosinophils (%) (Auto) 1.1 % (0.0-3.0) Basophils (%) (Auto) 0.5 % (0.0-2.0) Sodium Level 141 MMOL/L (136-145) Potassium Level 4.3 MMOL/L (3.5-5.1) Chloride Level 105 MMOL/L (98-107) Carbon Dioxide Level 32 MMOL/L (21-32) Anion Gap 4 mmol/L (5-15) L Blood Urea Nitrogen 20 mg/dL (7-18) H Creatinine 0.5 MG/DL (0.55-1.30) L Estimat Glomerular Filtration Rate mL/min (>60) Glucose Level 102 MG/DL (74-106) Calcium Level 9.1 MG/DL (8.5-10.1) Phosphorus Level 4.1 MG/DL (2.5-4.9) Magnesium Level 2.2 MG/DL (1.8-2.4) Total Bilirubin 0.4 MG/DL (0.2-1.0) Aspartate Amino Transf (AST/SGOT) 28 U/L (15-37) Alanine Aminotransferase (ALT/SGPT) 55 U/L (12-78) Alkaline Phosphatase 51 U/L (46-116) Total Protein 6.3 G/DL (6.4-8.2) L Albumin 2.7 G/DL (3.4-5.0) L Globulin 3.6 g/dL Albumin/Globulin Ratio 0.8 (1.0-2.7) L Vancomycin Level Trough 9.5 ug/mL (5.0-12.0) Arterial Blood pH 7.415 (7.350-7.450) Arterial Blood Partial Pressure CO2 48.3 mmHg (35.0-45.0) H Arterial Blood Partial Pressure O2 67.8 mmHg (75.0-100.0) L Arterial Blood HCO3 30.3 mmol/L (22.0-26.0) H Arterial Blood Oxygen Saturation 92.5 % (95-100) L Arterial Blood Base Excess 5.0 (-2-2) H Ian Test Positive Current Medications Medications (Trade) Dose Ordered Sig/Ibrahima Route PRN Reason Start Time Stop Time Status Last Admin Dose Admin Acetaminophen (Tylenol) 650 mg Q4H PRN ORAL Mild Pain (Pain Scale 1-3) 09/22/18 12:47 10/21/18 12:46 09/29/18 16:22 Acetazolamide (Diamox) 250 mg TWICE A DAY ORAL 09/30/18 09:00 10/30/18 08:59 09/30/18 17:40 Apixaban (Eliquis) 5 mg BID ORAL 09/29/18 18:00 10/19/18 17:59 09/30/18 17:40 Cefepime HCl 1 gm/ Dextrose 55 ml @ 110 mls/hr Q24H IVPB 09/25/18 01:00 10/02/18 00:59 09/30/18 00:12 Colistimethate Sodium (Colistin *inhalation use only*) 150 mg Q12HR@10,22 INH 09/26/18 10:00 10/03/18 09:59 09/30/18 10:11 Dextrose (Dextrose 50%) 25 ml Q30M PRN IV Hypoglycemia 09/22/18 13:00 10/17/18 06:59 Dextrose (Dextrose 50%) 50 ml Q30M PRN IV Hypoglycemia 09/22/18 13:00 10/17/18 06:59 Docusate Sodium (Colace) 100 mg TID ORAL 09/22/18 13:00 10/19/18 08:59 09/30/18 17:40 Folic Acid (Folate) 5 mg DAILY ORAL 09/23/18 09:00 10/18/18 09:59 09/30/18 08:48 Furosemide (Lasix) 40 mg DAILY IV 09/26/18 09:00 10/26/18 08:59 09/30/18 08:46 Morphine Sulfate (Morphine Sulfate) 2 mg Q4H PRN IVP Moderate Pain (Pain Scale 4-6) 09/29/18 18:45 10/06/18 18:44 09/30/18 17:41 Morphine Sulfate (Morphine Sulfate) 4 mg Q4H PRN IVP Severe Pain (Pain Scale 7-10) 09/29/18 18:45 10/06/18 18:44 Ondansetron HCl (Zofran) 4 mg Q6H PRN IVP Nausea & Vomiting 09/22/18 12:49 10/21/18 12:48 Pantoprazole (Protonix) 40 mg DAILY IV 09/23/18 09:00 10/23/18 08:59 09/30/18 08:50 Polyethylene Glycol (Miralax) 17 gm DAILYPRN PRN ORAL Constipation 09/22/18 12:50 10/21/18 12:49 Potassium Chloride (K-Dur) 40 meq DAILY NGT 09/30/18 09:00 10/27/18 12:44 09/30/18 08:50 Prednisone (predniSONE) 25 mg DAILY ORAL 10/01/18 09:00 10/20/18 08:59 Risperidone (RisperDAL) 1 mg BEDTIME ORAL 09/22/18 21:00 10/17/18 20:59 09/29/18 20:35 Thiamine HCl (Vitamin B1) 100 mg DAILY ORAL 09/23/18 09:00 10/20/18 08:59 09/30/18 08:51 Vancomycin HCl (Vanco rx to dose) 1 ea DAILY PRN MISC Per rx protocol 09/25/18 13:15 10/25/18 13:14 Vancomycin HCl 500 mg/Dextrose 110 ml @ 110 mls/hr Q8HR@0300,1100,1900 IVPB 09/30/18 11:00 10/05/18 10:59 09/30/18 18:24 Juan Moeller MD September 30, 2018 19:24
--- NOTE | 2018-09-30 20:22 | Cardiology Progress Note ---
Assessment/Plan Assessment/Plan 1. Bronchospasm. 2. Possible left-sided infiltrate or pneumonia. 3. Diastolic heart failure history. 4. Permanent atrial fibrillation. 5. lung collapse 6. hs of pacer lung col,lapswe resolved vr seem fine bp is fine at time time abx extubated looks good on lasix iv Subjective Cardiovascular: Denies: chest pain Respiratory: Denies: shortness of breath Gastrointestinal/Abdominal: Denies: abdominal pain Genitourinary: Denies: burning Objective Last 24 Hour Vital Signs Date Time Temp Pulse Resp B/P (MAP) Pulse Ox O2 Delivery O2 Flow Rate FiO2 09/30/18 19:00 72 28 129/50 (76) 100 09/30/18 18:00 78 28 128/63 (84) 99 09/30/18 17:00 79 21 120/60 (80) 100 09/30/18 16:00 98.7 76 21 111/58 (75) 100 09/30/18 16:00 Nasal Cannula 2.0 Nasal Cannula 2.0 09/30/18 16:00 76 09/30/18 15:00 76 27 102/66 (78) 99 09/30/18 14:00 77 26 122/53 (76) 100 09/30/18 13:00 77 32 118/61 (80) 100 09/30/18 12:00 84 09/30/18 12:00 Nasal Cannula 2.0 Nasal Cannula 2.0 09/30/18 12:00 98.7 80 32 111/46 (67) 99 09/30/18 11:00 76 28 106/50 (68) 99 09/30/18 10:22 75 22 100 Nasal Cannula 2.0 28 09/30/18 10:12 74 24 97 Nasal Cannula 2.0 28 09/30/18 10:00 76 28 91/72 (78) 100 09/30/18 09:00 79 31 119/34 (62) 97 09/30/18 08:00 75 09/30/18 08:00 98.3 75 24 128/58 (81) 96 09/30/18 08:00 Nasal Cannula 2.0 Nasal Cannula 2.0 09/30/18 07:19 81 30 100 Nasal Cannula 2.0 28 09/30/18 07:11 98 Nasal Cannula 2.0 28 09/30/18 07:11 84 30 98 Nasal Cannula 2.0 28 09/30/18 07:11 Nasal Cannula 2.0 28 09/30/18 07:00 76 35 128/58 (81) 100 09/30/18 06:00 76 22 130/62 (84) 98 09/30/18 05:03 98.7 09/30/18 05:00 73 26 123/49 (73) 99 09/30/18 04:00 Nasal Cannula 2.0 Nasal Cannula 2.0 09/30/18 04:00 98.4 71 31 121/52 (75) 98 09/30/18 04:00 67 09/30/18 03:00 67 27 109/34 (59) 99 09/30/18 02:00 72 26 136/52 (80) 96 09/30/18 01:00 76 27 141/60 (87) 96 09/30/18 00:57 65 31 100 Nasal Cannula 2.0 28 09/30/18 00:44 70 28 98 Nasal Cannula 2.0 28 09/30/18 00:00 Nasal Cannula 2.0 Nasal Cannula 2.0 09/30/18 00:00 98.7 70 31 140/47 (78) 99 09/30/18 00:00 70 09/29/18 23:15 71 20 100 Nasal Cannula 2.0 28 09/29/18 23:01 68 20 97 Nasal Cannula 2.0 28 09/29/18 23:00 98.8 72 31 145/57 (86) 98 09/29/18 22:00 98.4 70 31 138/56 (83) 97 09/29/18 21:00 98.5 71 28 142/57 (85) 97 General Appearance: no apparent distress, patient on isolation Cardiovascular: irregularly irregular Respiratory/Chest: lungs clear Abdomen: normal bowel sounds, non tender, soft Extremities: no swelling Intake and Output 09/29/18 09/30/18 19:00 07:00 Intake Total 1140 ml 1025 ml Output Total 1645 ml 550 ml Balance -505 ml 475 ml Free Water 200 ml 120 ml IV Total 55 ml Tube Feeding 660 ml 660 ml Other 280 ml 190 ml Output Urine Total 1645 ml 550 ml Laboratory Tests Test 09/30/18 02:05 09/30/18 07:56 White Blood Count 12.0 K/UL (4.8-10.8) H Red Blood Count 3.64 M/UL (4.20-5.40) L Hemoglobin 9.4 G/DL (12.0-16.0) L Hematocrit 30.1 % (37.0-47.0) L Mean Corpuscular Volume 83 FL (80-99) Mean Corpuscular Hemoglobin 25.8 PG (27.0-31.0) L Mean Corpuscular Hemoglobin Concent 31.2 G/DL (32.0-36.0) L Red Cell Distribution Width 19.2 % (11.6-14.8) H Platelet Count 193 K/UL (150-450) Mean Platelet Volume 9.0 FL (6.5-10.1) Neutrophils (%) (Auto) 81.0 % (45.0-75.0) H Lymphocytes (%) (Auto) 12.2 % (20.0-45.0) L Monocytes (%) (Auto) 5.3 % (1.0-10.0) Eosinophils (%) (Auto) 1.1 % (0.0-3.0) Basophils (%) (Auto) 0.5 % (0.0-2.0) Sodium Level 141 MMOL/L (136-145) Potassium Level 4.3 MMOL/L (3.5-5.1) Chloride Level 105 MMOL/L (98-107) Carbon Dioxide Level 32 MMOL/L (21-32) Anion Gap 4 mmol/L (5-15) L Blood Urea Nitrogen 20 mg/dL (7-18) H Creatinine 0.5 MG/DL (0.55-1.30) L Estimat Glomerular Filtration Rate mL/min (>60) Glucose Level 102 MG/DL (74-106) Calcium Level 9.1 MG/DL (8.5-10.1) Phosphorus Level 4.1 MG/DL (2.5-4.9) Magnesium Level 2.2 MG/DL (1.8-2.4) Total Bilirubin 0.4 MG/DL (0.2-1.0) Aspartate Amino Transf (AST/SGOT) 28 U/L (15-37) Alanine Aminotransferase (ALT/SGPT) 55 U/L (12-78) Alkaline Phosphatase 51 U/L (46-116) Total Protein 6.3 G/DL (6.4-8.2) L Albumin 2.7 G/DL (3.4-5.0) L Globulin 3.6 g/dL Albumin/Globulin Ratio 0.8 (1.0-2.7) L Vancomycin Level Trough 9.5 ug/mL (5.0-12.0) Arterial Blood pH 7.415 (7.350-7.450) Arterial Blood Partial Pressure CO2 48.3 mmHg (35.0-45.0) H Arterial Blood Partial Pressure O2 67.8 mmHg (75.0-100.0) L Arterial Blood HCO3 30.3 mmol/L (22.0-26.0) H Arterial Blood Oxygen Saturation 92.5 % (95-100) L Arterial Blood Base Excess 5.0 (-2-2) H Ian Test Positive Microbiology Date/Time Source Procedure Growth Status 09/29/18 04:45 Blood Blood Culture - Preliminary NO GROWTH AFTER 24 HOURS Resulted 09/29/18 04:40 Blood Blood Culture - Preliminary NO GROWTH AFTER 24 HOURS Resulted Akbar Reno MD September 30, 2018 20:22
--- NOTE | 2018-09-30 23:00 | NUR ---
NURSE NOTES: Pt transferred to SDU. Showing no signs of acute distress. VSS. Will continue to monitor.
--- NOTE | 2018-09-30 23:15 | NUR ---
NURSE NOTES: Pt refused breathing treatment per RT.
[2018-09-30] MEDS ORDERED: Morphine Sulfate 4mg/ml Inj (IV USE ONLY) IVP PRN (23:45)
[2018-09-30] MEDS ORDERED: Miralax 17gm pkt ORAL PRN (23:45)
[2018-10-01] VITALS: BP 139/52
[2018-10-01] MEDS: Cefepime HCl 1 GM in D5W 55 ML IVPB SCH (01:38)
[2018-10-01] MEDS: Morphine Sulfate 2mg/ml Inj(IV/IM USE ONLY) IVP PRN ×2 (02:25→06:51)
[2018-10-01] MEDS ORDERED: Morphine Sulfate 4mg/ml Inj (IV USE ONLY) IVP PRN (02:45)
[2018-10-01] MEDS ORDERED: Morphine Sulfate 2mg/ml Inj(IV/IM USE ONLY) IVP PRN (02:45)
[2018-10-01] MEDS ORDERED: Vancomycin 500 MG in D5W 110 ML IVPB SCH (03:00)
[2018-10-01 04:00] VITALS: BP 141/66
--- NOTE | 2018-10-01 04:25 | NUR ---
NURSE NOTES: Pt refused bath. Stated she did not want to be bothered or repositioned
[2018-10-01 04:27] LABS: BASOPHILS % (AUTO) 0.7 % (0.0-2.0); EOSINOPHILS % (AUTO) 0.7 % (0.0-3.0); HEMATOCRIT 32.1 % (37.0-47.0); LYMPHOCYTES % (AUTO) 7.4 % (20.0-45.0); MEAN CORPUSCULAR VOLUME 83 FL (80-99); MONOCYTES % (AUTO) 6.8 % (1.0-10.0); NEUTROPHILS % (AUTO) 84.3 % (45.0-75.0); PLATELET COUNT 213 K/UL (150-450); RED BLOOD COUNT 3.87 M/UL (4.20-5.40); RED CELL DISTRIBUTION WIDTH 19.1 % (11.6-14.8); WHITE BLOOD COUNT 16.4 K/UL (4.8-10.8)
[2018-10-01] MEDS: Vancomycin 750mg/NS 275ml IVPB SCH ×6 (04:29→19:31)
[2018-10-01 04:50] LABS: ALANINE AMINOTRANSFERASE 48 U/L (12-78); ALBUMIN 2.7 G/DL (3.4-5.0); ALBUMIN/GLOBULIN RATIO 0.7 (1.0-2.7); ALKALINE PHOSPHATASE 53 U/L (46-116); ANION GAP 6 mmol/L (5-15); ASPARTATE AMINO TRANSFERASE 24 U/L (15-37); BILIRUBIN,TOTAL 0.4 MG/DL (0.2-1.0); BLOOD UREA NITROGEN 22 mg/dL (7-18); CALCIUM 8.8 MG/DL (8.5-10.1); CARBON DIOXIDE 30 MMOL/L (21-32); CHLORIDE 103 MMOL/L (98-107); CREATININE 0.5 MG/DL (0.55-1.30); POTASSIUM 3.7 MMOL/L (3.5-5.1); SODIUM 139 MMOL/L (136-145)
--- NOTE | 2018-10-01 06:39 | General Progress Note ---
Assessment/Plan Problem List: (1) COPD (chronic obstructive pulmonary disease) ICD Codes: J44.9 - Chronic obstructive pulmonary disease, unspecified SNOMED: 78712071 Qualifiers: Qualified Codes: J44.9 - Chronic obstructive pulmonary disease, unspecified (2) Hyponatremia ICD Codes: E87.1 - Hyponatremia SNOMED: 36952783 (3) HTN (hypertension) ICD Codes: I10 - Hypertension SNOMED: 03184006 Assessment/Plan: on Prednisone 25 mg daily followed by taper electrolytes are normal Subjective ROS Limited/Unobtainable: Yes Allergies: Coded Allergies: PIPERACILLIN (Unverified Allergy, Unknown, 05/21/18) tolerates cephalosporins TAZOBACTAM (Unverified Allergy, Unknown, 03/10/18) Subjective events noted transferred out of ICU Objective Last 24 Hour Vital Signs Date Time Temp Pulse Resp B/P (MAP) Pulse Ox O2 Delivery O2 Flow Rate FiO2 10/01/18 04:00 77 10/01/18 04:00 97.9 84 24 141/66 (91) 95 10/01/18 04:00 Nasal Cannula 2.0 Nasal Cannula 2.0 10/01/18 02:55 97.9 10/01/18 00:25 98.7 10/01/18 00:00 81 10/01/18 00:00 98.0 82 26 139/52 (81) 99 10/01/18 00:00 Nasal Cannula 2.0 Nasal Cannula 2.0 09/30/18 23:34 Nasal Cannula 2.0 28 09/30/18 23:34 98 Nasal Cannula 2.0 28 09/30/18 23:32 Nasal Cannula 2.0 28 09/30/18 23:32 Nasal Cannula 2.0 28 09/30/18 22:00 83 24 137/54 (81) 100 09/30/18 21:00 74 27 127/54 (78) 100 09/30/18 20:00 Nasal Cannula 2.0 Nasal Cannula 2.0 09/30/18 20:00 98.4 73 25 131/61 (84) 100 09/30/18 20:00 74 09/30/18 19:00 72 28 129/50 (76) 100 09/30/18 18:00 78 28 128/63 (84) 99 09/30/18 17:00 79 21 120/60 (80) 100 09/30/18 16:00 98.7 76 21 111/58 (75) 100 09/30/18 16:00 Nasal Cannula 2.0 Nasal Cannula 2.0 09/30/18 16:00 76 09/30/18 15:00 76 27 102/66 (78) 99 09/30/18 14:00 77 26 122/53 (76) 100 09/30/18 13:00 77 32 118/61 (80) 100 09/30/18 12:00 84 09/30/18 12:00 Nasal Cannula 2.0 Nasal Cannula 2.0 09/30/18 12:00 98.7 80 32 111/46 (67) 99 09/30/18 11:00 76 28 106/50 (68) 99 09/30/18 10:22 75 22 100 Nasal Cannula 2.0 28 09/30/18 10:12 74 24 97 Nasal Cannula 2.0 28 09/30/18 10:00 76 28 91/72 (78) 100 09/30/18 09:00 79 31 119/34 (62) 97 09/30/18 08:00 75 09/30/18 08:00 98.3 75 24 128/58 (81) 96 09/30/18 08:00 Nasal Cannula 2.0 Nasal Cannula 2.0 09/30/18 07:19 81 30 100 Nasal Cannula 2.0 28 09/30/18 07:11 98 Nasal Cannula 2.0 28 09/30/18 07:11 84 30 98 Nasal Cannula 2.0 28 09/30/18 07:11 Nasal Cannula 2.0 28 09/30/18 07:00 76 35 128/58 (81) 100 Intake and Output 09/30/18 10/01/18 19:00 07:00 Intake Total 970 ml 770 ml Output Total 1940 ml 415 ml Balance -970 ml 355 ml Free Water 200 ml IV Total 110 ml 165 ml Tube Feeding 660 ml 605 ml Output Urine Total 1940 ml 415 ml Laboratory Tests 09/30/18 07:56: Arterial Blood pH 7.415, Arterial Blood Partial Pressure CO2 48.3H, Arterial Blood Partial Pressure O2 67.8L, Arterial Blood HCO3 30.3H, Arterial Blood Oxygen Saturation 92.5L, Arterial Blood Base Excess 5.0H, Ian Test Positive 10/01/18 02:00: Vancomycin Level Trough 14.8H 10/01/18 04:20: White Blood Count 16.4H, Red Blood Count 3.87L, Hemoglobin 10.0L, Hematocrit 32.1L, Mean Corpuscular Volume 83, Mean Corpuscular Hemoglobin 25.8L, Mean Corpuscular Hemoglobin Concent 31.1L, Red Cell Distribution Width 19.1H, Platelet Count 213, Mean Platelet Volume 7.8, Neutrophils (%) (Auto) 84.3H, Lymphocytes (%) (Auto) 7.4L, Monocytes (%) (Auto) 6.8, Eosinophils (%) (Auto) 0.7, Basophils (%) (Auto) 0.7, Sodium Level 139, Potassium Level 3.7, Chloride Level 103, Carbon Dioxide Level 30, Anion Gap 6, Blood Urea Nitrogen 22H, Creatinine 0.5L, Estimat Glomerular Filtration Rate , Glucose Level 127H, Calcium Level 8.8, Total Bilirubin 0.4, Aspartate Amino Transf (AST/SGOT) 24, Alanine Aminotransferase (ALT/SGPT) 48, Alkaline Phosphatase 53, Pro-B-Type Natriuretic Peptide 3478H, Total Protein 6.4, Albumin 2.7L, Globulin 3.7, Albumin/Globulin Ratio 0.7L Height (Feet): 5 Weight (Pounds): 196 General Appearance: lethargic Neck: normal alignment Cardiovascular: normal rate Respiratory/Chest: decreased breath sounds Abdomen: normal bowel sounds Objective Current Medications Medications (Trade) Dose Ordered Sig/Ibrahima Route PRN Reason Start Time Stop Time Status Last Admin Dose Admin Acetaminophen (Tylenol) 650 mg Q4H PRN ORAL Mild Pain (Pain Scale 1-3) 09/30/18 23:45 10/30/18 23:44 09/30/18 23:55 Acetazolamide (Diamox) 250 mg TWICE A DAY ORAL 10/01/18 09:00 10/30/18 08:59 Apixaban (Eliquis) 5 mg BID ORAL 10/01/18 09:00 10/19/18 17:59 Cefepime HCl 1 gm/ Dextrose 55 ml @ 110 mls/hr Q24H IVPB 10/01/18 01:00 10/02/18 00:59 10/01/18 01:38 Colistimethate Sodium (Colistin *inhalation use only*) 150 mg Q12HR@10,22 INH 10/01/18 10:00 10/03/18 09:59 Dextrose (Dextrose 50%) 25 ml Q30M PRN IV Hypoglycemia 09/30/18 23:00 10/17/18 06:59 Dextrose (Dextrose 50%) 50 ml Q30M PRN IV Hypoglycemia 09/30/18 23:00 10/17/18 06:59 Docusate Sodium (Colace) 100 mg TID ORAL 10/01/18 09:00 10/19/18 08:59 Folic Acid (Folate) 5 mg DAILY ORAL 10/01/18 09:00 10/18/18 09:59 Furosemide (Lasix) 40 mg DAILY IV 10/01/18 09:00 10/26/18 08:59 Morphine Sulfate (Morphine Sulfate) 2 mg Q4H PRN IVP Moderate Pain (Pain Scale 4-6) 09/30/18 23:45 10/07/18 23:44 10/01/18 02:25 Morphine Sulfate (Morphine Sulfate) 4 mg Q4H PRN IVP Severe Pain (Pain Scale 7-10) 09/30/18 23:45 10/07/18 23:44 Ondansetron HCl (Zofran) 4 mg Q6H PRN IVP Nausea & Vomiting 09/30/18 23:45 10/30/18 23:44 Pantoprazole (Protonix) 40 mg DAILY IV 10/01/18 09:00 10/23/18 08:59 Polyethylene Glycol (Miralax) 17 gm DAILYPRN PRN ORAL Constipation 09/30/18 23:45 10/30/18 23:44 Potassium Chloride (K-Dur) 40 meq DAILY NGT 10/01/18 09:00 10/27/18 12:44 Prednisone (predniSONE) 25 mg DAILY ORAL 10/01/18 09:00 10/20/18 08:59 Risperidone (RisperDAL) 1 mg BEDTIME ORAL 10/01/18 21:00 10/17/18 20:59 Thiamine HCl (Vitamin B1) 100 mg DAILY ORAL 10/01/18 09:00 10/20/18 08:59 Vancomycin HCl (Vanco rx to dose) 1 ea DAILY PRN MISC Per rx protocol 10/01/18 09:00 10/25/18 13:14 Vancomycin HCl 750 mg/Sodium Chloride 275 ml @ 183.333 mls/hr Q8H IVPB 10/01/18 03:00 10/06/18 02:59 10/01/18 04:29 Daniel Little MD October 01, 2018 06:39
--- NOTE | 2018-10-01 07:20 | NUR ---
NURSE NOTES: Received pt from CHARLETT[facility] Hendrickson in stable condition with no cardiopulmonary distress noted. Pt is asleep on 2L O2 via NC. NGT noted in R nare running Glucerna 1.2 at 55cc/hr. F/C noted draining yellow urine. Skin alterations noted. Pt has a L FA 22g IV. Bed is low with alarm on, side rails up x 3 and padded per seizure precaution. Call light within reach. Will continue to monitor pt.
[2018-10-01 08:00] VITALS: BP 139/58
[2018-10-01] MEDS ORDERED: Miralax 17gm pkt NG PRN (08:45)
[2018-10-01] MEDS ORDERED: Eliquis 5mg tablet ORAL SCH (09:00)
[2018-10-01] MEDS ORDERED: Thiamine 100mg tab ORAL SCH (09:00)
[2018-10-01] MEDS ORDERED: Docusate 100mg/10ml Liq ORAL SCH (09:00)
[2018-10-01] MEDS: Docusate 100mg/10ml Liq NG SCH ×3 (09:31→17:30)
[2018-10-01] MEDS: Eliquis 5mg tablet NGT SCH ×2 (09:37→17:30)
[2018-10-01] MEDS: Thiamine 100mg tab NG SCH (09:37)
[2018-10-01] MEDS: Pantoprazole Inj IV SCH (09:38)
--- NOTE | 2018-10-01 10:28 | Pulmonology Progress Note ---
Assessment/Plan Problems: (1) Respiratory failure, acute (2) Acute encephalopathy (3) COPD (chronic obstructive pulmonary disease) (4) Atrial fibrillation with RVR (5) HTN (hypertension) (6) Seizure disorder (7) Pacemaker (8) Cerebral vascular disease (9) Gout Assessment/Plan swallow study continue diuretics, negative 4.5 liters so far check electrolytes respiratory treatment monitor heart rate aspiration precaution dvt prophylaxis. Subjective ROS Limited/Unobtainable: No Constitutional: Reports: no symptoms HEENT: Repors: no symptoms Allergies: Coded Allergies: PIPERACILLIN (Unverified Allergy, Unknown, 05/21/18) tolerates cephalosporins TAZOBACTAM (Unverified Allergy, Unknown, 03/10/18) Objective Last 24 Hour Vital Signs Date Time Temp Pulse Resp B/P (MAP) Pulse Ox O2 Delivery O2 Flow Rate FiO2 10/01/18 08:41 Nasal Cannula 2.0 28 10/01/18 08:41 Nasal Cannula 2.0 28 10/01/18 08:00 Nasal Cannula 2.0 Nasal Cannula 2.0 10/01/18 08:00 98.1 83 26 139/58 (85) 98 10/01/18 08:00 77 10/01/18 07:19 99 Nasal Cannula 2.0 28 10/01/18 07:19 Nasal Cannula 2.0 28 10/01/18 04:00 77 10/01/18 04:00 97.9 84 24 141/66 (91) 95 10/01/18 04:00 Nasal Cannula 2.0 Nasal Cannula 2.0 10/01/18 02:55 97.9 10/01/18 00:25 98.7 10/01/18 00:00 81 10/01/18 00:00 98.0 82 26 139/52 (81) 99 10/01/18 00:00 Nasal Cannula 2.0 Nasal Cannula 2.0 09/30/18 23:34 Nasal Cannula 2.0 28 09/30/18 23:34 98 Nasal Cannula 2.0 28 09/30/18 23:32 Nasal Cannula 2.0 28 09/30/18 23:32 Nasal Cannula 2.0 28 09/30/18 22:00 83 24 137/54 (81) 100 09/30/18 21:00 74 27 127/54 (78) 100 09/30/18 20:00 Nasal Cannula 2.0 Nasal Cannula 2.0 09/30/18 20:00 98.4 73 25 131/61 (84) 100 09/30/18 20:00 74 09/30/18 19:00 72 28 129/50 (76) 100 09/30/18 18:00 78 28 128/63 (84) 99 09/30/18 17:00 79 21 120/60 (80) 100 09/30/18 16:00 98.7 76 21 111/58 (75) 100 09/30/18 16:00 Nasal Cannula 2.0 Nasal Cannula 2.0 09/30/18 16:00 76 09/30/18 15:00 76 27 102/66 (78) 99 09/30/18 14:00 77 26 122/53 (76) 100 09/30/18 13:00 77 32 118/61 (80) 100 09/30/18 12:00 84 09/30/18 12:00 Nasal Cannula 2.0 Nasal Cannula 2.0 09/30/18 12:00 98.7 80 32 111/46 (67) 99 09/30/18 11:00 76 28 106/50 (68) 99 Intake and Output 09/30/18 10/01/18 19:00 07:00 Intake Total 970 ml 1045.000 ml Output Total 1940 ml 415 ml Balance -970 ml 630.000 ml Free Water 200 ml IV Total 110 ml 440.000 ml Tube Feeding 660 ml 605 ml Output Urine Total 1940 ml 415 ml Objective cxr showing mild pulmonary edema HEENT: normocephalic Respiratory/Chest: chest wall non-tender, lungs clear, normal breath sounds Cardiovascular: normal peripheral pulses, normal rate Abdomen: normal bowel sounds, soft, non tender Extremities: no cyanosis Skin: no rash Neurologic/Psychiatric: gas maker helper II-XII grossly normal Microbiology Date/Time Source Procedure Growth Status 09/29/18 04:45 Blood Blood Culture - Preliminary NO GROWTH AFTER 48 HOURS Resulted 09/29/18 04:40 Blood Blood Culture - Preliminary NO GROWTH AFTER 48 HOURS Resulted Laboratory Tests 10/01/18 02:00: Vancomycin Level Trough 14.8H 10/01/18 04:20: White Blood Count 16.4H, Red Blood Count 3.87L, Hemoglobin 10.0L, Hematocrit 32.1L, Mean Corpuscular Volume 83, Mean Corpuscular Hemoglobin 25.8L, Mean Corpuscular Hemoglobin Concent 31.1L, Red Cell Distribution Width 19.1H, Platelet Count 213, Mean Platelet Volume 7.8, Neutrophils (%) (Auto) 84.3H, Lymphocytes (%) (Auto) 7.4L, Monocytes (%) (Auto) 6.8, Eosinophils (%) (Auto) 0.7, Basophils (%) (Auto) 0.7, Sodium Level 139, Potassium Level 3.7, Chloride Level 103, Carbon Dioxide Level 30, Anion Gap 6, Blood Urea Nitrogen 22H, Creatinine 0.5L, Estimat Glomerular Filtration Rate , Glucose Level 127H, Calcium Level 8.8, Total Bilirubin 0.4, Aspartate Amino Transf (AST/SGOT) 24, Alanine Aminotransferase (ALT/SGPT) 48, Alkaline Phosphatase 53, Pro-B-Type Natriuretic Peptide 3478H, Total Protein 6.4, Albumin 2.7L, Globulin 3.7, Albumin/Globulin Ratio 0.7L Current Medications Medications (Trade) Dose Ordered Sig/Ibrahima Route PRN Reason Start Time Stop Time Status Last Admin Dose Admin Acetaminophen (Tylenol) 650 mg Q4H PRN NG Mild Pain (Pain Scale 1-3) 10/01/18 08:45 10/30/18 23:44 Acetazolamide (Diamox) 250 mg TWICE A DAY NG 10/01/18 09:00 10/30/18 08:59 10/01/18 09:31 Apixaban (Eliquis) 5 mg BID NGT 10/01/18 09:00 10/19/18 17:59 10/01/18 09:37 Cefepime HCl 1 gm/ Dextrose 55 ml @ 110 mls/hr Q24H IVPB 10/01/18 01:00 10/02/18 00:59 10/01/18 01:38 Colistimethate Sodium (Colistin *inhalation use only*) 150 mg Q12HR@10,22 INH 10/01/18 10:00 10/03/18 09:59 Dextrose (Dextrose 50%) 25 ml Q30M PRN IV Hypoglycemia 09/30/18 23:00 10/17/18 06:59 Dextrose (Dextrose 50%) 50 ml Q30M PRN IV Hypoglycemia 09/30/18 23:00 10/17/18 06:59 Docusate Sodium (Colace) 100 mg TID NG 10/01/18 09:00 10/19/18 08:59 10/01/18 09:31 Folic Acid (Folate) 5 mg DAILY NG 10/01/18 09:00 10/18/18 09:59 10/01/18 09:38 Furosemide (Lasix) 40 mg DAILY IV 10/01/18 09:00 10/26/18 08:59 10/01/18 09:38 Morphine Sulfate (Morphine Sulfate) 2 mg Q4H PRN IVP Moderate Pain (Pain Scale 4-6) 09/30/18 23:45 10/07/18 23:44 10/01/18 06:51 Morphine Sulfate (Morphine Sulfate) 4 mg Q4H PRN IVP Severe Pain (Pain Scale 7-10) 09/30/18 23:45 10/07/18 23:44 Ondansetron HCl (Zofran) 4 mg Q6H PRN IVP Nausea & Vomiting 09/30/18 23:45 10/30/18 23:44 Pantoprazole (Protonix) 40 mg DAILY IV 10/01/18 09:00 10/23/18 08:59 10/01/18 09:38 Polyethylene Glycol (Miralax) 17 gm DAILYPRN PRN NG Constipation 10/01/18 08:45 10/30/18 23:44 Potassium Chloride (K-Dur) 40 meq DAILY NGT 10/01/18 09:00 10/27/18 12:44 10/01/18 09:31 Prednisone (predniSONE) 25 mg DAILY NG 10/01/18 09:00 10/20/18 08:59 10/01/18 09:32 Risperidone (RisperDAL) 1 mg BEDTIME NG 10/01/18 21:00 10/17/18 20:59 Thiamine HCl (Vitamin B1) 100 mg DAILY NG 10/01/18 09:00 10/20/18 08:59 10/01/18 09:37 Vancomycin HCl (Vanco rx to dose) 1 ea DAILY PRN MISC Per rx protocol 10/01/18 09:00 10/25/18 13:14 Vancomycin HCl 750 mg/Sodium Chloride 275 ml @ 183.333 mls/hr Q8H IVPB 10/01/18 03:00 10/06/18 02:59 10/01/18 04:29 Mendel Sierra MD October 01, 2018 10:28
--- NOTE | 2018-10-01 11:31 | Diagnostic Imaging Report ---
Indication: Dyspnea Comparison: 09/29/2018 A single view chest radiograph was obtained. Findings: Heart is enlarged. There is a NG tube present. The left hemidiaphragm is not seen. There is calcification of the mitral annulus. There is an old fracture of the left humeral neck. Bones are osteopenic. IMPRESSION: No change from the prior study.
[2018-10-01 12:00] VITALS: BP 129/78
--- NOTE | 2018-10-01 12:59 | NUR ---
SWALLOW/SPEECH THERAPY NOTE: SWALLOW STATUS: SUBJECTIVE: ALERT AND WANTS TO EAT/DRINK BY MOUTH BUT HER THROAT HURTS WHEN SHE SWALLOWS (ODYNOPHAGIA). ON CHRISTOPHER NOW. OBJECTIVE/ASSESSMENT: UPDATES ON STATUS: EXTUBATED 09/28 (3 DAYS AGO) AND WANTS TO EAT. PER CXR 09/29 HAZY OPACITY OVER RIGHT LUNG MAY BE SOFT TISSUE. ON 2 LITERS 02 WITH GOOD SATS BUT INCREASED RR OF 26 AND LOW BP 139/58 (85). PER RN HAS AFIB. HIGH RISK FOR SILENT ASPIRATION DUE TO CVA, COPD, AND PNA HISTORY. HAD MILD-MODERATE OROPHARYNGEAL DYSPHAGIA ON MOD BARIUM SWALLOW STUDY ON 03/11/18 WITH TRACE PENETRATION ON THIN LIQUIDS VIA CUP AND STRAW, NO ASP BUT RISK. WAS PLACED ON MECH SOFT CHOPPED AND NECTAR THICK LIQUIDS AT THAT TIME. 05/25/18 HAD WORSENED DYSPHAGIA BUT REFUSED THICK LIQUIDS AND THUS PUT ON SOFT CHEW (DISLIKED DYSPHAGIA DIET OF MECH SOFT CHOPPED) AND THIN LIQUIDS WITH ASP AND REFLUX PRECAUTIONS. PATIENT DOES NOT WANT TO WAIT FOR MOD BARIUM SWALLOW STUDY (NOT ABLE TO COMPLETE TO DATE DUE TO PATIENT NOT READY OR HAD SCHEDULE CONFLICTS). INITIAL IMPRESSIONS: S/S OF MILD OROPHARYNGEAL DYSPHAGIA AND MILDLY INCREASED TRANSIT TIMES SLOWER BUT GROSSLY FUNCTIONAL SWALLOW PO TRIALS OF THIN LIQUIDS SEQUENTIAL SIPS VIA CUP, NO OVERT ASPIRATION BUT DID NEED TO SWALLOW ONE SIP AT A TIME. FAIR HYOLARYNGEAL EXCURSION AND SOME SOB POST SWALLOWS (RR ADEQUATE 24 BUT MAY GO UP TO 25 OR 26) GROSSLY FUNCTIONAL SWALLOW WITH PUREED TSP AND NECTAR THICK LIQUIDS VIA CUP ONE SIP AT A TIME. HAS SILENT ASP RISK DUE TO CVA HISTORY. RECOMMENDATIONS: CONSIDER INITIATION OF PUREED AND NECTAR THICK LIQUIDS FOR QUALITY OF LIFE PURPOSES AND PT REQUEST. FOLLOW POSTED ASPIRATION AND REFLUX PRECAUTIONS WITH ASSISTANCE. CONSIDER HOLDING TUBE FEEDINGS TO INCREASE APPETITE AND IF POOR INTAKE, RESUME FEEDINGS. PATIENT MAY LIKELY JUST TAKE SOME ORAL GRATIFICATION MIN INTAKE SINCE HER THROAT IS VERY SORE AND VOICE IS HOARSE POST EXTUBATION. MIN PHLEGM THAT SHE TENDS TO SWALLOW. MOD BARIUM SWALLOW STUDY WHEN ABLE TO GO DOWN, HAS AFIB AND RN TO GIVE PT THROAT SPRAY FOR PAIN IN THROAT AND ODYNOPHAGIA. D/W RN (JAJA), (LOW NA DIET TYPE PER) ENE, AND DR AGGARWAL.
[2018-10-01] MEDS ORDERED: Miralax 17gm pkt ORAL PRN (13:00)
--- NOTE | 2018-10-01 13:26 | Nephrology Progress Note ---
Assessment/Plan Problem List: (1) Respiratory failure, acute (2) Hyponatremia (3) Seizure disorder (4) Acute diastolic CHF (congestive heart failure) (5) COPD (chronic obstructive pulmonary disease) (6) Pacemaker Assessment Now extubated HypoNatremia ? Etiology: depletional / Diuretics / SIADH ... bronchoscopy for left lung collapse Acute respiratory failure on BIPAP- COPD Encephalopathy due to high CO2 Pacemaker UTI Low MCV Anemia Hypoalbuminemia EjFx 55% last admission h/o Atfib Plan resume diamox K supplement as needed taper steroid now extubated since 09/28 Off Diamox for now López PRN lasix IV iron monitor lytes Anemia clinton per orders Subjective ROS Limited/Unobtainable: No Constitutional: Reports: malaise Objective Objective Last 24 Hour Vital Signs Date Time Temp Pulse Resp B/P (MAP) Pulse Ox O2 Delivery O2 Flow Rate FiO2 10/01/18 12:00 97.9 82 25 129/78 (95) 94 10/01/18 12:00 Nasal Cannula 2.0 Nasal Cannula 2.0 10/01/18 08:41 Nasal Cannula 2.0 28 10/01/18 08:41 Nasal Cannula 2.0 28 10/01/18 08:00 Nasal Cannula 2.0 Nasal Cannula 2.0 10/01/18 08:00 98.1 83 26 139/58 (85) 98 10/01/18 08:00 81 10/01/18 07:19 99 Nasal Cannula 2.0 28 10/01/18 07:19 Nasal Cannula 2.0 28 10/01/18 04:00 77 10/01/18 04:00 97.9 84 24 141/66 (91) 95 10/01/18 04:00 Nasal Cannula 2.0 Nasal Cannula 2.0 10/01/18 02:55 97.9 10/01/18 00:25 98.7 10/01/18 00:00 81 10/01/18 00:00 98.0 82 26 139/52 (81) 99 10/01/18 00:00 Nasal Cannula 2.0 Nasal Cannula 2.0 09/30/18 23:34 Nasal Cannula 2.0 28 09/30/18 23:34 98 Nasal Cannula 2.0 28 09/30/18 23:32 Nasal Cannula 2.0 28 09/30/18 23:32 Nasal Cannula 2.0 28 09/30/18 22:00 83 24 137/54 (81) 100 09/30/18 21:00 74 27 127/54 (78) 100 09/30/18 20:00 Nasal Cannula 2.0 Nasal Cannula 2.0 09/30/18 20:00 98.4 73 25 131/61 (84) 100 09/30/18 20:00 74 09/30/18 19:00 72 28 129/50 (76) 100 09/30/18 18:00 78 28 128/63 (84) 99 09/30/18 17:00 79 21 120/60 (80) 100 09/30/18 16:00 98.7 76 21 111/58 (75) 100 09/30/18 16:00 Nasal Cannula 2.0 Nasal Cannula 2.0 09/30/18 16:00 76 09/30/18 15:00 76 27 102/66 (78) 99 09/30/18 14:00 77 26 122/53 (76) 100 Intake and Output 09/30/18 10/01/18 18:59 06:59 Intake Total 970 ml 1100.000 ml Output Total 1900 ml 490 ml Balance -930 ml 610.000 ml Free Water 200 ml IV Total 110 ml 440.000 ml Tube Feeding 660 ml 660 ml Output Urine Total 1900 ml 490 ml Laboratory Tests 10/01/18 02:00: Vancomycin Level Trough 14.8H 10/01/18 04:20: White Blood Count 16.4H, Red Blood Count 3.87L, Hemoglobin 10.0L, Hematocrit 32.1L, Mean Corpuscular Volume 83, Mean Corpuscular Hemoglobin 25.8L, Mean Corpuscular Hemoglobin Concent 31.1L, Red Cell Distribution Width 19.1H, Platelet Count 213, Mean Platelet Volume 7.8, Neutrophils (%) (Auto) 84.3H, Lymphocytes (%) (Auto) 7.4L, Monocytes (%) (Auto) 6.8, Eosinophils (%) (Auto) 0.7, Basophils (%) (Auto) 0.7, Sodium Level 139, Potassium Level 3.7, Chloride Level 103, Carbon Dioxide Level 30, Anion Gap 6, Blood Urea Nitrogen 22H, Creatinine 0.5L, Estimat Glomerular Filtration Rate , Glucose Level 127H, Calcium Level 8.8, Total Bilirubin 0.4, Aspartate Amino Transf (AST/SGOT) 24, Alanine Aminotransferase (ALT/SGPT) 48, Alkaline Phosphatase 53, Pro-B-Type Natriuretic Peptide 3478H, Total Protein 6.4, Albumin 2.7L, Globulin 3.7, Albumin/Globulin Ratio 0.7L Height (Feet): 5 Weight (Pounds): 179 General Appearance: no apparent distress EENT: other - NGT Respiratory/Chest: decreased breath sounds Abdomen: soft, distended Objective no change Danilo Huber MD October 01, 2018 13:26
--- NOTE | 2018-10-01 15:10 | NUR ---
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 There is a NG tube present IS:CEFEPIME HCI 55ml IVPB VANCOMYCIN 275ml IVPB ELIQUIS 5mg DIAMOX 250mg K-DUR 40meq COLISTIN 150mg INH MED/SURG STATUS Addendum: 10/01/18 at 1534 by Maude Chen LVN SDU STATUS
--- NOTE | 2018-10-01 15:13 | NUR ---
NURSE NOTES: Spoke to Jodi, ANNETTA and Dr Sierra about pt coughing after starting Pureed-moist NTL diet. Diet will be d/c for now until swallow-video eval is performed.
[2018-10-01] MEDS: Chloraseptic Spray 20mL Bottle ORAL PRN ×2 (15:27→20:39)
[2018-10-01 16:00] VITALS: BP 137/73
--- NOTE | 2018-10-01 16:07 | NUR ---
HAND-OFF: Report given to CHARLETTE Ellsworth. Pt in stable condition.
--- NOTE | 2018-10-01 16:14 | NUR ---
NURSE NOTES: RECEIVED PATIENT REPORT FROM JAJA OVALLES. PATIENT IS AWAKE. NOT IN ACUTE DISTRESS. BED IS LOW AND LOCKED FOR SAFETY. CALL LIGHT WITHIN REACH.
--- NOTE | 2018-10-01 17:00 | Cardiac Electrophysiology PN ---
Assessment/Plan Assessment/Plan 1. 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 Chronic atrial fibrillation. Rate controlled off any antiarrhythmics. On Eliquis 5 mg bid. 3. Severe COPD. On Solu-Medrol. 4. Diastolic congestive heart failure. 5. Diabetes. 6. S/P resp failure for Left lung collapse. Extubated 7. Dysphagia, swallow eval peding DW RN Subjective Subjective Transferred out of ICU. Had swallow eval. In atrial fib with intermittent V pacing Objective Last 24 Hour Vital Signs Date Time Temp Pulse Resp B/P (MAP) Pulse Ox O2 Delivery O2 Flow Rate FiO2 10/01/18 16:00 Nasal Cannula 2.0 Nasal Cannula 2.0 10/01/18 12:00 85 10/01/18 12:00 97.9 82 25 129/78 (95) 94 10/01/18 12:00 Nasal Cannula 2.0 Nasal Cannula 2.0 10/01/18 08:41 Nasal Cannula 2.0 28 10/01/18 08:41 Nasal Cannula 2.0 28 10/01/18 08:00 Nasal Cannula 2.0 Nasal Cannula 2.0 10/01/18 08:00 98.1 83 26 139/58 (85) 98 10/01/18 08:00 81 10/01/18 07:19 99 Nasal Cannula 2.0 28 10/01/18 07:19 Nasal Cannula 2.0 28 10/01/18 04:00 77 10/01/18 04:00 97.9 84 24 141/66 (91) 95 10/01/18 04:00 Nasal Cannula 2.0 Nasal Cannula 2.0 10/01/18 02:55 97.9 10/01/18 00:25 98.7 10/01/18 00:00 81 10/01/18 00:00 98.0 82 26 139/52 (81) 99 10/01/18 00:00 Nasal Cannula 2.0 Nasal Cannula 2.0 09/30/18 23:34 Nasal Cannula 2.0 28 09/30/18 23:34 98 Nasal Cannula 2.0 28 09/30/18 23:32 Nasal Cannula 2.0 28 09/30/18 23:32 Nasal Cannula 2.0 28 09/30/18 22:00 83 24 137/54 (81) 100 09/30/18 21:00 74 27 127/54 (78) 100 09/30/18 20:00 Nasal Cannula 2.0 Nasal Cannula 2.0 09/30/18 20:00 98.4 73 25 131/61 (84) 100 09/30/18 20:00 74 09/30/18 19:00 72 28 129/50 (76) 100 09/30/18 18:00 78 28 128/63 (84) 99 09/30/18 17:00 79 21 120/60 (80) 100 Intake and Output 09/30/18 10/01/18 18:59 06:59 Intake Total 970 ml 1100.000 ml Output Total 1900 ml 490 ml Balance -930 ml 610.000 ml Free Water 200 ml IV Total 110 ml 440.000 ml Tube Feeding 660 ml 660 ml Output Urine Total 1900 ml 490 ml Laboratory Tests Test 10/01/18 02:00 10/01/18 04:20 Vancomycin Level Trough 14.8 ug/mL (5.0-12.0) H White Blood Count 16.4 K/UL (4.8-10.8) H Red Blood Count 3.87 M/UL (4.20-5.40) L Hemoglobin 10.0 G/DL (12.0-16.0) L Hematocrit 32.1 % (37.0-47.0) L Mean Corpuscular Volume 83 FL (80-99) Mean Corpuscular Hemoglobin 25.8 PG (27.0-31.0) L Mean Corpuscular Hemoglobin Concent 31.1 G/DL (32.0-36.0) L Red Cell Distribution Width 19.1 % (11.6-14.8) H Platelet Count 213 K/UL (150-450) Mean Platelet Volume 7.8 FL (6.5-10.1) Neutrophils (%) (Auto) 84.3 % (45.0-75.0) H Lymphocytes (%) (Auto) 7.4 % (20.0-45.0) L Monocytes (%) (Auto) 6.8 % (1.0-10.0) Eosinophils (%) (Auto) 0.7 % (0.0-3.0) Basophils (%) (Auto) 0.7 % (0.0-2.0) Sodium Level 139 MMOL/L (136-145) Potassium Level 3.7 MMOL/L (3.5-5.1) Chloride Level 103 MMOL/L (98-107) Carbon Dioxide Level 30 MMOL/L (21-32) Anion Gap 6 mmol/L (5-15) Blood Urea Nitrogen 22 mg/dL (7-18) H Creatinine 0.5 MG/DL (0.55-1.30) L Estimat Glomerular Filtration Rate mL/min (>60) Glucose Level 127 MG/DL (74-106) H Calcium Level 8.8 MG/DL (8.5-10.1) Total Bilirubin 0.4 MG/DL (0.2-1.0) Aspartate Amino Transf (AST/SGOT) 24 U/L (15-37) Alanine Aminotransferase (ALT/SGPT) 48 U/L (12-78) Alkaline Phosphatase 53 U/L (46-116) Pro-B-Type Natriuretic Peptide 3478 pg/mL (0-125) H Total Protein 6.4 G/DL (6.4-8.2) Albumin 2.7 G/DL (3.4-5.0) L Globulin 3.7 g/dL Albumin/Globulin Ratio 0.7 (1.0-2.7) L Microbiology Date/Time Source Procedure Growth Status 09/29/18 04:45 Blood Blood Culture - Preliminary NO GROWTH AFTER 48 HOURS Resulted 09/29/18 04:40 Blood Blood Culture - Preliminary NO GROWTH AFTER 48 HOURS Resulted Objective HEAD AND NECK: Mild JVD.NG tube is in LUNGS: Coarse rhonchi bilaterally. Decrease breath sounds on the left CARDIOVASCULAR: Irregular S1 and S2 with no gallop. ABDOMEN: Soft. EXTREMITIES: No edema. Yohan Milian MD October 01, 2018 17:00
[2018-10-01] MEDS ORDERED: NS 275ml ONE (17:02)
--- NOTE | 2018-10-01 17:20 | Internal Med Progress Note ---
Subjective Date of Service: October 01, 2018 Physician Name Juan Dutta Attending Physician Yonathan Mendoza MD Current Medications Medications (Trade) Dose Ordered Sig/Ibrahima Route PRN Reason Start Time Stop Time Status Last Admin Dose Admin Acetaminophen (Tylenol) 650 mg Q4H PRN NG Mild Pain (Pain Scale 1-3) 10/01/18 08:45 10/30/18 23:44 Acetazolamide (Diamox) 250 mg TWICE A DAY NG 10/01/18 09:00 10/30/18 08:59 10/01/18 09:31 Apixaban (Eliquis) 5 mg BID NGT 10/01/18 09:00 10/19/18 17:59 10/01/18 09:37 Cefepime HCl 1 gm/ Dextrose 55 ml @ 110 mls/hr Q24H IVPB 10/01/18 01:00 10/06/18 00:59 10/01/18 01:38 Colistimethate Sodium (Colistin *inhalation use only*) 150 mg Q12HR@10,22 INH 10/01/18 10:00 10/03/18 09:59 Dextrose (Dextrose 50%) 25 ml Q30M PRN IV Hypoglycemia 09/30/18 23:00 10/17/18 06:59 Dextrose (Dextrose 50%) 50 ml Q30M PRN IV Hypoglycemia 09/30/18 23:00 10/17/18 06:59 Docusate Sodium (Colace) 100 mg TID NG 10/01/18 09:00 10/19/18 08:59 10/01/18 11:50 Folic Acid (Folate) 5 mg DAILY NG 10/01/18 09:00 10/18/18 09:59 10/01/18 09:38 Furosemide (Lasix) 40 mg DAILY IV 10/01/18 09:00 10/26/18 08:59 10/01/18 09:38 Ondansetron HCl (Zofran) 4 mg Q6H PRN IVP Nausea & Vomiting 09/30/18 23:45 10/30/18 23:44 Pantoprazole (Protonix) 40 mg DAILY IV 10/01/18 09:00 10/23/18 08:59 10/01/18 09:38 Phenol/Menthol (Chloraseptic) 1 spray Q3H PRN ORAL THROAT PAIN 10/01/18 14:00 10/31/18 13:59 10/01/18 15:27 Polyethylene Glycol (Miralax) 17 gm DAILYPRN PRN NG Constipation 10/01/18 08:45 10/30/18 23:44 Potassium Chloride (K-Dur) 40 meq DAILY NGT 10/01/18 09:00 10/27/18 12:44 10/01/18 09:31 Risperidone (RisperDAL) 1 mg BEDTIME NG 10/01/18 21:00 10/17/18 20:59 Thiamine HCl (Vitamin B1) 100 mg DAILY NG 10/01/18 09:00 10/20/18 08:59 10/01/18 09:37 Vancomycin HCl (Vanco rx to dose) 1 ea DAILY PRN MISC Per rx protocol 10/01/18 09:00 10/25/18 13:14 Vancomycin HCl 750 mg/Sodium Chloride 275 ml @ 183.333 mls/hr Q8H IVPB 10/01/18 03:00 10/06/18 02:59 10/01/18 10:52 Allergies: Coded Allergies: PIPERACILLIN (Unverified Allergy, Unknown, 05/21/18) tolerates cephalosporins TAZOBACTAM (Unverified Allergy, Unknown, 03/10/18) ROS Limited/Unobtainable: No Constitutional: Reports: no symptoms HEENT: Reports: no symptoms Cardiovascular: Reports: no symptoms Respiratory: Reports: no symptoms Gastrointestinal/Abdominal: Reports: no symptoms Genitourinary: Reports: no symptoms Neurologic/Psychiatric: Reports: no symptoms Subjective 77 YO F admitted for respiratory distress. Now left lung opacification. Extubated 09/28/18. Cover for Int Med-DR Mendoza. CHRISTOPHER. Answers questions appropriately Objective Last Vital Signs Date Time Temp Pulse Resp B/P (MAP) Pulse Ox O2 Delivery O2 Flow Rate FiO2 10/01/18 16:00 Nasal Cannula 2.0 Nasal Cannula 2.0 10/01/18 12:00 85 10/01/18 12:00 97.9 25 129/78 (95) 94 10/01/18 08:41 28 Laboratory Tests Test 10/01/18 02:00 10/01/18 04:20 Vancomycin Level Trough 14.8 ug/mL (5.0-12.0) H White Blood Count 16.4 K/UL (4.8-10.8) H Red Blood Count 3.87 M/UL (4.20-5.40) L Hemoglobin 10.0 G/DL (12.0-16.0) L Hematocrit 32.1 % (37.0-47.0) L Mean Corpuscular Volume 83 FL (80-99) Mean Corpuscular Hemoglobin 25.8 PG (27.0-31.0) L Mean Corpuscular Hemoglobin Concent 31.1 G/DL (32.0-36.0) L Red Cell Distribution Width 19.1 % (11.6-14.8) H Platelet Count 213 K/UL (150-450) Mean Platelet Volume 7.8 FL (6.5-10.1) Neutrophils (%) (Auto) 84.3 % (45.0-75.0) H Lymphocytes (%) (Auto) 7.4 % (20.0-45.0) L Monocytes (%) (Auto) 6.8 % (1.0-10.0) Eosinophils (%) (Auto) 0.7 % (0.0-3.0) Basophils (%) (Auto) 0.7 % (0.0-2.0) Sodium Level 139 MMOL/L (136-145) Potassium Level 3.7 MMOL/L (3.5-5.1) Chloride Level 103 MMOL/L (98-107) Carbon Dioxide Level 30 MMOL/L (21-32) Anion Gap 6 mmol/L (5-15) Blood Urea Nitrogen 22 mg/dL (7-18) H Creatinine 0.5 MG/DL (0.55-1.30) L Estimat Glomerular Filtration Rate mL/min (>60) Glucose Level 127 MG/DL (74-106) H Calcium Level 8.8 MG/DL (8.5-10.1) Total Bilirubin 0.4 MG/DL (0.2-1.0) Aspartate Amino Transf (AST/SGOT) 24 U/L (15-37) Alanine Aminotransferase (ALT/SGPT) 48 U/L (12-78) Alkaline Phosphatase 53 U/L (46-116) Pro-B-Type Natriuretic Peptide 3478 pg/mL (0-125) H Total Protein 6.4 G/DL (6.4-8.2) Albumin 2.7 G/DL (3.4-5.0) L Globulin 3.7 g/dL Albumin/Globulin Ratio 0.7 (1.0-2.7) L Microbiology Date/Time Source Procedure Growth Status 09/29/18 04:45 Blood Blood Culture - Preliminary NO GROWTH AFTER 48 HOURS Resulted 09/29/18 04:40 Blood Blood Culture - Preliminary NO GROWTH AFTER 48 HOURS Resulted Intake and Output 09/30/18 10/01/18 18:59 06:59 Intake Total 970 ml 1100.000 ml Output Total 1900 ml 490 ml Balance -930 ml 610.000 ml Free Water 200 ml IV Total 110 ml 440.000 ml Tube Feeding 660 ml 660 ml Output Urine Total 1900 ml 490 ml Objective PHYSICAL EXAMINATION: GENERAL: The patient is a well-developed and well-nourished white female, who is in moderate respiratory distress. HEENT: Eyes, pupils are equal and responsive to light and accommodation. Extraocular movements are intact. NECK: Supple without lymphadenopathy. CHEST: Nasal Canula; Few rales in bilateral bases, otherwise, Lungs are clear to auscultation bilaterally without wheezes CARDIOVASCULAR: Regular rhythm and rate. S1 and S2 normal without murmurs, rubs, or gallops. ABDOMEN: Soft, nontender, and nondistended. Positive bowel sounds. No evidence of hepatosplenomegaly. Currently, no rebound or guarding noted. EXTREMITIES: Negative for clubbing, cyanosis, or edema. RECTAL/GENITAL: Refused. NEUROLOGIC: Cranial nerves II through XII are grossly intact without focal deficits. Motor strength is 5/5 bilaterally. Deep tendon reflexes are 2+ plantar. Assessment/Plan Assessment/Plan ASSESSMENT: This is a 77-year-old white female with: 1. Shortness of breath. 2. Hypoxia. 3. Acute on chronic congestive heart failure. 4. Atrial flutter. 5. Hyponatremia. 6. Chronic obstructive pulmonary disease. 7. Coronary artery disease. 8. Hypertension. 9. Seizure disorder. 10. Paranoid schizophrenia. 11. Intraventricular pacemaker 12. left lung opacification-collapse per CT TREATMENT: 1. Shortness of breath/congestive heart failure. Extubated 09/28/[address] Sierra. Cardiologyconsultation has been obtained with Dr. Milian. The patient is currently receiving intravenous Lasix. We will follow recommendation of Cardiology. BNP is elevated at over greater than 5000. An echocardiogram is pending. 2. Atrial flutter. Continue Eliquis as above. 3. Hyponatremia. The patient is currently receiving intravenous fluids. 4. Chronic obstructive pulmonary disease. Continue DuoNeb nebulized as above. The patient was initially placed on BiPAP in the emergency room. A Pulmonary consultation has been obtained with Dr. Mendel Sierra. 5. Hypertension. Continue Lasix as above. 6. Seizure disorder. The patient is currently off antiseizure medication. 7. Paranoid schizophrenia. Continue Risperdal as above. 8. antibiotic=cefepime and vanco Juan Dutta MD October 01, 2018 17:20
--- NOTE | 2018-10-01 17:33 | Infectious Diseases Prog Note ---
Assessment/Plan Assessment/Plan Assessment: Low grade fever x1, SP Leukocytosis, increased Probable PNA -sp cx MSSA, ABC ( S cefepime, Meropenem) -09/24 CXR: There is persistent opacity at the left lung base. -09/21 CT chest: Completely atelectatic left lung. This is likely due to endobronchial occlusion by debris. However, a small pulmonary hilar mass may also be present. This finding was discussed by phone with Dr. Sierra previously. Small left pleural effusion. Trace right pleural effusion. Posterior and basilar atelectatic changes of the right lung. Single enlarged aortopulmonary window lymph node. This could be neoplastic or reactive. This is increased in size since prior study 03/13/2018. Right lung groundglass opacity, nonspecific but likely on the basis of mild pulmonary edema. Mild cardiomegaly. Pericardial effusion Probable UTI -09/24 u/a wbc tnct nit +, leuk +3; ucx>100k EColi Gram positive bacteremia- real vs contamination -09/24 Bcx 06/05 ConS, 09/26 06/03 : Staph epid Hx of recurrent CONS bacteremia -07/28/18 Bcx 07/06 CONS; 07/29 Bcx Neg; 08/23 BCx neg -2d echo: no obvious vegetation -05/19/18 Bcx 3/ S. hominis sp hominis; 05/21 Bc xNeg 2d eCho: no vegetations. Focal aortic valve sclerosis with reduced cusp excursion. Thickened mitral valve leaflets with reduced excursion. 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, s/p Rx SP VDRF, 04/10 Sp extubated Legionella Ur Ag: Neg, Legionella IgM + / IgG - Scx: No sig growth Flu screen negative Acute on chronic respiratory failure s/p intubation 09/22, 09/28 extubated CHF and COPD exacerbation Atrial flutter dCHF COPD CAD s/p stents Hypertension Seizure disorder Schizophrenia Depression History of intraventricular pacemaker implantation GERD CVA/TIA b/l hip replacement hx of L DVT history of alcohol abuse hx of recurrent admissions hx of high grade CONS bacteremia SNF resident Plan: -Cont empiric Cefepime # 8/ for PNA and UTI and IV Vancomycin #/ ( CoNS bactremia most likley contaminant ) - INH colistin d# 6/ -Bcx x2 -Monitor CBC/CMP, temperatures -Cdiff if diarrhea - aspiration precautions Subjective Allergies: Coded Allergies: PIPERACILLIN (Unverified Allergy, Unknown, 05/21/18) tolerates cephalosporins TAZOBACTAM (Unverified Allergy, Unknown, 03/10/18) Subjective afebrile Objective Vital Signs Last 24 Hour Vital Signs Date Time Temp Pulse Resp B/P (MAP) Pulse Ox O2 Delivery O2 Flow Rate FiO2 10/01/18 16:00 98.2 93 24 137/73 (94) 94 10/01/18 16:00 Nasal Cannula 2.0 Nasal Cannula 2.0 10/01/18 16:00 90 10/01/18 12:00 85 10/01/18 12:00 97.9 82 25 129/78 (95) 94 10/01/18 12:00 Nasal Cannula 2.0 Nasal Cannula 2.0 10/01/18 08:41 Nasal Cannula 2.0 28 10/01/18 08:41 Nasal Cannula 2.0 28 10/01/18 08:00 Nasal Cannula 2.0 Nasal Cannula 2.0 10/01/18 08:00 98.1 83 26 139/58 (85) 98 10/01/18 08:00 81 10/01/18 07:19 99 Nasal Cannula 2.0 28 10/01/18 07:19 Nasal Cannula 2.0 28 10/01/18 04:00 77 10/01/18 04:00 97.9 84 24 141/66 (91) 95 10/01/18 04:00 Nasal Cannula 2.0 Nasal Cannula 2.0 10/01/18 02:55 97.9 10/01/18 00:25 98.7 10/01/18 00:00 81 10/01/18 00:00 98.0 82 26 139/52 (81) 99 10/01/18 00:00 Nasal Cannula 2.0 Nasal Cannula 2.0 09/30/18 23:34 Nasal Cannula 2.0 28 09/30/18 23:34 98 Nasal Cannula 2.0 28 09/30/18 23:32 Nasal Cannula 2.0 28 09/30/18 23:32 Nasal Cannula 2.0 28 09/30/18 22:00 83 24 137/54 (81) 100 09/30/18 21:00 74 27 127/54 (78) 100 09/30/18 20:00 Nasal Cannula 2.0 Nasal Cannula 2.0 09/30/18 20:00 98.4 73 25 131/61 (84) 100 09/30/18 20:00 74 09/30/18 19:00 72 28 129/50 (76) 100 09/30/18 18:00 78 28 128/63 (84) 99 Height (Feet): 5 Weight (Pounds): 179 HEENT: atraumatic Respiratory/Chest: no respiratory distress Cardiovascular: regularly irregular Abdomen: soft, non tender Microbiology Date/Time Source Procedure Growth Status 09/29/18 04:45 Blood Blood Culture - Preliminary NO GROWTH AFTER 48 HOURS Resulted 09/29/18 04:40 Blood Blood Culture - Preliminary NO GROWTH AFTER 48 HOURS Resulted Laboratory Tests Test 10/01/18 02:00 10/01/18 04:20 Vancomycin Level Trough 14.8 ug/mL (5.0-12.0) H White Blood Count 16.4 K/UL (4.8-10.8) H Red Blood Count 3.87 M/UL (4.20-5.40) L Hemoglobin 10.0 G/DL (12.0-16.0) L Hematocrit 32.1 % (37.0-47.0) L Mean Corpuscular Volume 83 FL (80-99) Mean Corpuscular Hemoglobin 25.8 PG (27.0-31.0) L Mean Corpuscular Hemoglobin Concent 31.1 G/DL (32.0-36.0) L Red Cell Distribution Width 19.1 % (11.6-14.8) H Platelet Count 213 K/UL (150-450) Mean Platelet Volume 7.8 FL (6.5-10.1) Neutrophils (%) (Auto) 84.3 % (45.0-75.0) H Lymphocytes (%) (Auto) 7.4 % (20.0-45.0) L Monocytes (%) (Auto) 6.8 % (1.0-10.0) Eosinophils (%) (Auto) 0.7 % (0.0-3.0) Basophils (%) (Auto) 0.7 % (0.0-2.0) Sodium Level 139 MMOL/L (136-145) Potassium Level 3.7 MMOL/L (3.5-5.1) Chloride Level 103 MMOL/L (98-107) Carbon Dioxide Level 30 MMOL/L (21-32) Anion Gap 6 mmol/L (5-15) Blood Urea Nitrogen 22 mg/dL (7-18) H Creatinine 0.5 MG/DL (0.55-1.30) L Estimat Glomerular Filtration Rate mL/min (>60) Glucose Level 127 MG/DL (74-106) H Calcium Level 8.8 MG/DL (8.5-10.1) Total Bilirubin 0.4 MG/DL (0.2-1.0) Aspartate Amino Transf (AST/SGOT) 24 U/L (15-37) Alanine Aminotransferase (ALT/SGPT) 48 U/L (12-78) Alkaline Phosphatase 53 U/L (46-116) Pro-B-Type Natriuretic Peptide 3478 pg/mL (0-125) H Total Protein 6.4 G/DL (6.4-8.2) Albumin 2.7 G/DL (3.4-5.0) L Globulin 3.7 g/dL Albumin/Globulin Ratio 0.7 (1.0-2.7) L Current Medications Medications (Trade) Dose Ordered Sig/Ibrahima Route PRN Reason Start Time Stop Time Status Last Admin Dose Admin Acetaminophen (Tylenol) 650 mg Q4H PRN NG Mild Pain (Pain Scale 1-3) 10/01/18 08:45 10/30/18 23:44 Acetazolamide (Diamox) 250 mg TWICE A DAY NG 10/01/18 09:00 10/30/18 08:59 10/01/18 09:31 Apixaban (Eliquis) 5 mg BID NGT 10/01/18 09:00 10/19/18 17:59 10/01/18 09:37 Cefepime HCl 1 gm/ Dextrose 55 ml @ 110 mls/hr Q24H IVPB 10/01/18 01:00 10/06/18 00:59 10/01/18 01:38 Colistimethate Sodium (Colistin *inhalation use only*) 150 mg Q12HR@10,22 INH 10/01/18 10:00 10/03/18 09:59 Dextrose (Dextrose 50%) 25 ml Q30M PRN IV Hypoglycemia 09/30/18 23:00 10/17/18 06:59 Dextrose (Dextrose 50%) 50 ml Q30M PRN IV Hypoglycemia 09/30/18 23:00 10/17/18 06:59 Docusate Sodium (Colace) 100 mg TID NG 10/01/18 09:00 10/19/18 08:59 10/01/18 11:50 Folic Acid (Folate) 5 mg DAILY NG 10/01/18 09:00 10/18/18 09:59 10/01/18 09:38 Furosemide (Lasix) 40 mg DAILY IV 10/01/18 09:00 10/26/18 08:59 10/01/18 09:38 Ondansetron HCl (Zofran) 4 mg Q6H PRN IVP Nausea & Vomiting 09/30/18 23:45 10/30/18 23:44 Pantoprazole (Protonix) 40 mg DAILY IV 10/01/18 09:00 10/23/18 08:59 10/01/18 09:38 Phenol/Menthol (Chloraseptic) 1 spray Q3H PRN ORAL THROAT PAIN 10/01/18 14:00 10/31/18 13:59 10/01/18 15:27 Polyethylene Glycol (Miralax) 17 gm DAILYPRN PRN NG Constipation 10/01/18 08:45 10/30/18 23:44 Potassium Chloride (K-Dur) 40 meq DAILY NGT 10/01/18 09:00 10/27/18 12:44 10/01/18 09:31 Risperidone (RisperDAL) 1 mg BEDTIME NG 10/01/18 21:00 10/17/18 20:59 Thiamine HCl (Vitamin B1) 100 mg DAILY NG 10/01/18 09:00 10/20/18 08:59 10/01/18 09:37 Vancomycin HCl (Vanco rx to dose) 1 ea DAILY PRN MISC Per rx protocol 10/01/18 09:00 10/25/18 13:14 Vancomycin HCl 750 mg/Sodium Chloride 275 ml @ 183.333 mls/hr Q8H IVPB 10/01/18 03:00 10/06/18 02:59 10/01/18 10:52 Juan Moeller MD October 01, 2018 17:33
--- NOTE | 2018-10-01 19:20 | NUR ---
NURSE NOTES: Received report from Jodee RN, pt. in bed awake, A/O x's 4- able to make needs known, no signs or symptoms of acute cardiac or respiratory distress noted, bed in lowest position and call light within easy reach, bed alarm on, side rails up x's4 and safety brakes engaged, pt. appears to be tolerating current NC setting at 2L- no distress noted, Glucerna 1.2 at 55cc/hr- no residual noted, López intact and draining to gravity, LFA 22G IV intact and patent, pt. appears to be resting comfortably, safety measures continued, will continue with plan of care.
--- NOTE | 2018-10-01 19:48 | NUR ---
HAND-OFF: Report given to ai mena.
[2018-10-01 20:00] VITALS: BP 135/72
[2018-10-01] MEDS: Colistin for inhalation INH SCH (21:45)
[2018-10-02] VITALS: BP 129/74
[2018-10-02] MEDS: Cefepime HCl 1 GM in D5W 55 ML IVPB SCH (00:08)
[2018-10-02] MEDS: Vancomycin 750mg/NS 275ml IVPB SCH ×4 (02:03→15:46)
--- NOTE | 2018-10-02 02:05 | NUR ---
NURSE NOTES: Vancomycin spiked but not administered after realizing that Vanco Troph was not done- scanned bag at 0203 and stopped at 0205am- notified charge nurse. Will Hold on to bag until Vanco troph level comes back.
[2018-10-02 02:51] LABS: BASOPHILS % (AUTO) 0.7 % (0.0-2.0); EOSINOPHILS % (AUTO) 0.7 % (0.0-3.0); HEMATOCRIT 31.8 % (37.0-47.0); LYMPHOCYTES % (AUTO) 7.5 % (20.0-45.0); MEAN CORPUSCULAR VOLUME 81 FL (80-99); MONOCYTES % (AUTO) 6.7 % (1.0-10.0); NEUTROPHILS % (AUTO) 84.4 % (45.0-75.0); PLATELET COUNT 212 K/UL (150-450); RED BLOOD COUNT 3.91 M/UL (4.20-5.40); RED CELL DISTRIBUTION WIDTH 19.5 % (11.6-14.8); WHITE BLOOD COUNT 14.2 K/UL (4.8-10.8)
[2018-10-02 03:06] LABS: ALANINE AMINOTRANSFERASE 34 U/L (12-78); ALBUMIN 2.6 G/DL (3.4-5.0); ALBUMIN/GLOBULIN RATIO 0.7 (1.0-2.7); ALKALINE PHOSPHATASE 55 U/L (46-116); ANION GAP 5 mmol/L (5-15); ASPARTATE AMINO TRANSFERASE 8 U/L (15-37); BILIRUBIN,TOTAL 0.4 MG/DL (0.2-1.0); BLOOD UREA NITROGEN 20 mg/dL (7-18); CALCIUM 8.8 MG/DL (8.5-10.1); CARBON DIOXIDE 28 MMOL/L (21-32); CHLORIDE 106 MMOL/L (98-107); CREATININE 0.5 MG/DL (0.55-1.30); PHOSPHORUS 3.7 MG/DL (2.5-4.9); POTASSIUM 3.6 MMOL/L (3.5-5.1); SODIUM 139 MMOL/L (136-145)
--- NOTE | 2018-10-02 03:22 | NUR ---
NURSE NOTES: Pharmacist called regarding Vancomycin not to be given- notified pharmacist that Vanco was spiked but stopped immediately at 0205 after realizing vancotroph was not done yet- wasted Vancotroph- notified charge nurse RN.
[2018-10-02 04:00] VITALS: BP 145/79
--- NOTE | 2018-10-02 06:26 | General Progress Note ---
Assessment/Plan Problem List: (1) COPD (chronic obstructive pulmonary disease) ICD Codes: J44.9 - Chronic obstructive pulmonary disease, unspecified SNOMED: 35360016 Qualifiers: Qualified Codes: J44.9 - Chronic obstructive pulmonary disease, unspecified (2) Hyponatremia ICD Codes: E87.1 - Hyponatremia SNOMED: 91703316 (3) HTN (hypertension) ICD Codes: I10 - Hypertension SNOMED: 54622083 Assessment/Plan: no longer on Prednisone electrolytes are normal Subjective ROS Limited/Unobtainable: Yes Allergies: Coded Allergies: PIPERACILLIN (Unverified Allergy, Unknown, 05/21/18) tolerates cephalosporins TAZOBACTAM (Unverified Allergy, Unknown, 03/10/18) Subjective events noted Objective Last 24 Hour Vital Signs Date Time Temp Pulse Resp B/P (MAP) Pulse Ox O2 Delivery O2 Flow Rate FiO2 10/02/18 04:00 2.0 10/02/18 04:00 98.0 81 20 145/79 (101) 98 10/02/18 04:00 Nasal Cannula 2.0 Nasal Cannula 2.0 10/02/18 03:43 84 10/02/18 00:00 98.2 79 20 129/74 (92) 98 10/02/18 00:00 Nasal Cannula 2.0 Nasal Cannula 2.0 10/02/18 00:00 2.0 10/01/18 23:34 83 10/01/18 21:49 88 20 100 Nasal Cannula 2.0 28 10/01/18 21:42 Nasal Cannula 2.0 28 10/01/18 21:42 85 20 98 Nasal Cannula 2.0 28 10/01/18 21:41 98 Nasal Cannula 2.0 28 10/01/18 20:00 2.0 10/01/18 20:00 98.0 89 22 135/72 (93) 96 10/01/18 20:00 Nasal Cannula 2.0 Nasal Cannula 2.0 10/01/18 19:12 83 10/01/18 16:00 98.2 93 24 137/73 (94) 94 10/01/18 16:00 Nasal Cannula 2.0 Nasal Cannula 2.0 10/01/18 16:00 90 10/01/18 12:00 85 10/01/18 12:00 97.9 82 25 129/78 (95) 94 10/01/18 12:00 Nasal Cannula 2.0 Nasal Cannula 2.0 10/01/18 08:41 Nasal Cannula 2.0 28 10/01/18 08:41 Nasal Cannula 2.0 28 10/01/18 08:00 Nasal Cannula 2.0 Nasal Cannula 2.0 10/01/18 08:00 98.1 83 26 139/58 (85) 98 10/01/18 08:00 81 10/01/18 07:19 99 Nasal Cannula 2.0 28 10/01/18 07:19 Nasal Cannula 2.0 28 Intake and Output 10/01/18 10/02/18 19:00 07:00 Intake Total 1055.000 ml 1076.6 ml Output Total 1750 ml 1450 ml Balance -695.000 ml -373.4 ml Free Water 120 ml 50 ml IV Total 275.000 ml 421.6 ml Tube Feeding 660 ml 605 ml Output Urine Total 1750 ml 1450 ml # Bowel Movements 1 Laboratory Tests 10/02/18 02:35: White Blood Count 14.2H, Red Blood Count 3.91L, Hemoglobin 10.0L, Hematocrit 31.8L, Mean Corpuscular Volume 81, Mean Corpuscular Hemoglobin 25.7L, Mean Corpuscular Hemoglobin Concent 31.5L, Red Cell Distribution Width 19.5H, Platelet Count 212, Mean Platelet Volume 7.5, Neutrophils (%) (Auto) 84.4H, Lymphocytes (%) (Auto) 7.5L, Monocytes (%) (Auto) 6.7, Eosinophils (%) (Auto) 0.7, Basophils (%) (Auto) 0.7, Sodium Level 139, Potassium Level 3.6, Chloride Level 106, Carbon Dioxide Level 28, Anion Gap 5, Blood Urea Nitrogen 20H, Creatinine 0.5L, Estimat Glomerular Filtration Rate , Glucose Level 131H, Uric Acid 2.6, Calcium Level 8.8, Phosphorus Level 3.7, Magnesium Level 1.9, Total Bilirubin 0.4, Aspartate Amino Transf (AST/SGOT) 8L, Alanine Aminotransferase ( ALT/SGPT) 34, Alkaline Phosphatase 55, Total Protein 6.4, Albumin 2.6L, Globulin 3.8, Albumin/Globulin Ratio 0.7L, Vancomycin Level Trough 40.7H Height (Feet): 5 Weight (Pounds): 179 General Appearance: lethargic Neck: normal alignment Cardiovascular: normal rate Respiratory/Chest: decreased breath sounds Abdomen: normal bowel sounds Objective Current Medications Medications (Trade) Dose Ordered Sig/Ibrahima Route PRN Reason Start Time Stop Time Status Last Admin Dose Admin Acetaminophen (Tylenol) 650 mg Q4H PRN NG Mild Pain (Pain Scale 1-3) 10/01/18 08:45 10/30/18 23:44 Acetazolamide (Diamox) 250 mg TWICE A DAY NG 10/01/18 09:00 10/30/18 08:59 10/01/18 17:30 Apixaban (Eliquis) 5 mg BID NGT 10/01/18 09:00 10/19/18 17:59 10/01/18 17:30 Cefepime HCl 1 gm/ Dextrose 55 ml @ 110 mls/hr Q24H IVPB 10/01/18 01:00 10/06/18 00:59 10/02/18 00:08 Colistimethate Sodium (Colistin *inhalation use only*) 150 mg Q12HR@10,22 INH 10/01/18 10:00 10/03/18 09:59 10/01/18 21:45 Dextrose (Dextrose 50%) 25 ml Q30M PRN IV Hypoglycemia 09/30/18 23:00 10/17/18 06:59 Dextrose (Dextrose 50%) 50 ml Q30M PRN IV Hypoglycemia 09/30/18 23:00 10/17/18 06:59 Docusate Sodium (Colace) 100 mg TID NG 10/01/18 09:00 10/19/18 08:59 10/01/18 17:30 Folic Acid (Folate) 5 mg DAILY NG 10/01/18 09:00 10/18/18 09:59 10/01/18 09:38 Furosemide (Lasix) 40 mg DAILY IV 10/01/18 09:00 10/26/18 08:59 10/01/18 09:38 Ondansetron HCl (Zofran) 4 mg Q6H PRN IVP Nausea & Vomiting 09/30/18 23:45 10/30/18 23:44 Pantoprazole (Protonix) 40 mg DAILY IV 10/01/18 09:00 10/23/18 08:59 10/01/18 09:38 Phenol/Menthol (Chloraseptic) 1 spray Q3H PRN ORAL THROAT PAIN 10/01/18 14:00 10/31/18 13:59 10/01/18 20:39 Polyethylene Glycol (Miralax) 17 gm DAILYPRN PRN NG Constipation 10/01/18 08:45 10/30/18 23:44 Potassium Chloride (K-Dur) 40 meq DAILY NGT 10/01/18 09:00 10/27/18 12:44 10/01/18 09:31 Risperidone (RisperDAL) 1 mg BEDTIME NG 10/01/18 21:00 10/17/18 20:59 10/01/18 20:03 Thiamine HCl (Vitamin B1) 100 mg DAILY NG 10/01/18 09:00 10/20/18 08:59 10/01/18 09:37 Vancomycin HCl (Vanco rx to dose) 1 ea DAILY PRN MISC Per rx protocol 10/01/18 09:00 10/25/18 13:14 Vancomycin HCl 750 mg/Sodium Chloride 275 ml @ 183.333 mls/hr Q8H IVPB 10/01/18 03:00 10/06/18 02:59 Future Hold 10/02/18 02:03 Daniel Little MD October 02, 2018 06:26
--- NOTE | 2018-10-02 07:21 | NUR ---
NURSE NOTES: Report received from CHARLETTE Whitten. Observed patient in bed, awake and verbally responsive. On 2L of oxygen via nasal cannula, no distress noted. Denies pain at this time. NGT on right nares with ongoing feeding, patient tolerating well. HOB elevated. IV site intact and patent. F/C draining well. Bed in lowest position, call light within reach, padded side rails up. Will continue to monitor.
--- NOTE | 2018-10-02 07:21 | NUR ---
HAND-OFF: Report given to Cristiane Larson, pt. remains stable and no signs of distress noted.
[2018-10-02 08:00] VITALS: BP 150/71
[2018-10-02] MEDS: Docusate 100mg/10ml Liq NG SCH ×3 (08:34→17:31)
[2018-10-02] MEDS: Pantoprazole Inj IV SCH (08:34)
[2018-10-02] MEDS: Thiamine 100mg tab NG SCH (08:36)
[2018-10-02] MEDS: Eliquis 5mg tablet NGT SCH ×2 (08:36→17:31)
--- NOTE | 2018-10-02 09:56 | Pulmonology Progress Note ---
Assessment/Plan Problems: (1) Respiratory failure, acute (2) Acute encephalopathy (3) COPD (chronic obstructive pulmonary disease) (4) Atrial fibrillation with RVR (5) HTN (hypertension) (6) Seizure disorder (7) Pacemaker (8) Cerebral vascular disease (9) Gout Assessment/Plan swallow study, still can't swallow continue diuretics, negative 5.1 liters so far check electrolytes, watch bun/creatinine respiratory treatment monitor heart rate aspiration precaution dvt prophylaxis. Subjective ROS Limited/Unobtainable: No Constitutional: Reports: no symptoms HEENT: Repors: no symptoms Respiratory: Reports: no symptoms Allergies: Coded Allergies: PIPERACILLIN (Unverified Allergy, Unknown, 05/21/18) tolerates cephalosporins TAZOBACTAM (Unverified Allergy, Unknown, 03/10/18) Objective Last 24 Hour Vital Signs Date Time Temp Pulse Resp B/P (MAP) Pulse Ox O2 Delivery O2 Flow Rate FiO2 10/02/18 08:00 Nasal Cannula 2.0 Nasal Cannula 2.0 10/02/18 08:00 2.0 10/02/18 08:00 98.0 91 28 150/71 (97) 98 10/02/18 08:00 87 10/02/18 04:00 2.0 10/02/18 04:00 98.0 81 20 145/79 (101) 98 10/02/18 04:00 Nasal Cannula 2.0 Nasal Cannula 2.0 10/02/18 03:43 84 10/02/18 00:00 98.2 79 20 129/74 (92) 98 10/02/18 00:00 Nasal Cannula 2.0 Nasal Cannula 2.0 10/02/18 00:00 2.0 10/01/18 23:34 83 10/01/18 21:49 88 20 100 Nasal Cannula 2.0 28 10/01/18 21:42 Nasal Cannula 2.0 28 10/01/18 21:42 85 20 98 Nasal Cannula 2.0 28 10/01/18 21:41 98 Nasal Cannula 2.0 28 10/01/18 20:00 2.0 10/01/18 20:00 98.0 89 22 135/72 (93) 96 10/01/18 20:00 Nasal Cannula 2.0 Nasal Cannula 2.0 10/01/18 19:12 83 10/01/18 16:00 98.2 93 24 137/73 (94) 94 10/01/18 16:00 Nasal Cannula 2.0 Nasal Cannula 2.0 10/01/18 16:00 90 10/01/18 12:00 85 10/01/18 12:00 97.9 82 25 129/78 (95) 94 10/01/18 12:00 Nasal Cannula 2.0 Nasal Cannula 2.0 Intake and Output 10/01/18 10/02/18 19:00 07:00 Intake Total 1055.000 ml 1131.6 ml Output Total 1750 ml 1450 ml Balance -695.000 ml -318.4 ml Free Water 120 ml 50 ml IV Total 275.000 ml 421.6 ml Tube Feeding 660 ml 660 ml Output Urine Total 1750 ml 1450 ml # Bowel Movements 1 Objective cxr showing mild pulmonary edema General Appearance: WD/WN HEENT: normocephalic, atraumatic Respiratory/Chest: chest wall non-tender, lungs clear Breasts: no masses Cardiovascular: normal peripheral pulses Abdomen: normal bowel sounds Genitourinary: normal external genitalia Extremities: no cyanosis Neurologic/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: 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 Laboratory Tests 10/02/18 02:35: White Blood Count 14.2H, Red Blood Count 3.91L, Hemoglobin 10.0L, Hematocrit 31.8L, Mean Corpuscular Volume 81, Mean Corpuscular Hemoglobin 25.7L, Mean Corpuscular Hemoglobin Concent 31.5L, Red Cell Distribution Width 19.5H, Platelet Count 212, Mean Platelet Volume 7.5, Neutrophils (%) (Auto) 84.4H, Lymphocytes (%) (Auto) 7.5L, Monocytes (%) (Auto) 6.7, Eosinophils (%) (Auto) 0.7, Basophils (%) (Auto) 0.7, Sodium Level 139, Potassium Level 3.6, Chloride Level 106, Carbon Dioxide Level 28, Anion Gap 5, Blood Urea Nitrogen 20H, Creatinine 0.5L, Estimat Glomerular Filtration Rate , Glucose Level 131H, Uric Acid 2.6, Calcium Level 8.8, Phosphorus Level 3.7, Magnesium Level 1.9, Total Bilirubin 0.4, Aspartate Amino Transf (AST/SGOT) 8L, Alanine Aminotransferase ( ALT/SGPT) 34, Alkaline Phosphatase 55, Total Protein 6.4, Albumin 2.6L, Globulin 3.8, Albumin/Globulin Ratio 0.7L, Vancomycin Level Trough 40.7H Current Medications Medications (Trade) Dose Ordered Sig/Ibrahima Route PRN Reason Start Time Stop Time Status Last Admin Dose Admin Acetaminophen (Tylenol) 650 mg Q4H PRN NG Mild Pain (Pain Scale 1-3) 10/01/18 08:45 10/30/18 23:44 Acetazolamide (Diamox) 250 mg TWICE A DAY NG 10/01/18 09:00 10/30/18 08:59 10/02/18 08:38 Apixaban (Eliquis) 5 mg BID NGT 10/01/18 09:00 10/19/18 17:59 10/02/18 08:36 Cefepime HCl 1 gm/ Dextrose 55 ml @ 110 mls/hr Q24H IVPB 10/01/18 01:00 10/06/18 00:59 10/02/18 00:08 Colistimethate Sodium (Colistin *inhalation use only*) 150 mg Q12HR@10,22 INH 10/01/18 10:00 10/03/18 09:59 10/01/18 21:45 Dextrose (Dextrose 50%) 25 ml Q30M PRN IV Hypoglycemia 09/30/18 23:00 10/17/18 06:59 Dextrose (Dextrose 50%) 50 ml Q30M PRN IV Hypoglycemia 09/30/18 23:00 10/17/18 06:59 Docusate Sodium (Colace) 100 mg TID NG 10/01/18 09:00 10/19/18 08:59 10/02/18 08:34 Folic Acid (Folate) 5 mg DAILY NG 10/01/18 09:00 10/18/18 09:59 10/02/18 08:36 Furosemide (Lasix) 40 mg DAILY IV 10/01/18 09:00 10/26/18 08:59 10/02/18 08:34 Ondansetron HCl (Zofran) 4 mg Q6H PRN IVP Nausea & Vomiting 09/30/18 23:45 10/30/18 23:44 Pantoprazole (Protonix) 40 mg DAILY IV 10/01/18 09:00 10/23/18 08:59 10/02/18 08:34 Phenol/Menthol (Chloraseptic) 1 spray Q3H PRN ORAL THROAT PAIN 10/01/18 14:00 10/31/18 13:59 10/01/18 20:39 Polyethylene Glycol (Miralax) 17 gm DAILYPRN PRN NG Constipation 10/01/18 08:45 10/30/18 23:44 Potassium Chloride (K-Dur) 40 meq DAILY NGT 10/01/18 09:00 10/27/18 12:44 10/02/18 08:35 Risperidone (RisperDAL) 1 mg BEDTIME NG 10/01/18 21:00 10/17/18 20:59 10/01/18 20:03 Thiamine HCl (Vitamin B1) 100 mg DAILY NG 10/01/18 09:00 10/20/18 08:59 10/02/18 08:36 Vancomycin HCl (Vanco rx to dose) 1 ea DAILY PRN MISC Per rx protocol 10/01/18 09:00 10/25/18 13:14 Mendel Sierra MD October 02, 2018 09:56
--- NOTE | 2018-10-02 10:44 | NUR ---
RD ASSESSMENT & RECOMMENDATIONS SEE CARE ACTIVITY FOR COMPLETE ASSESSMENT DAILY ESTIMATED NEEDS: Needs based on Pulmonary, wound/ 54kg abw 25-30 kcals/kg 8121-3911 total kcals 1.25-1.5 g protein/kg 68-81 g total protein 25-30 mL/kg 1823-0328 total fluid mLs NUTRITION DIAGNOSIS: 1) Altered nutrition related lab values R/T clinical condition as evidenced by critically elev pCO2, now wnl, low pH (now wnl), elev BNP (7412->3414), low K (2.5*-> wnl), low phos (1.8->wnl), low Mg (1.6->wnl). 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 3) Increased kcal/prot intake needs R/T wound healing as evidenced by partial thickness wounds to sacrum and daron-anal area, non-blanchable erythema to R heel and plantar R heel. PO DIET RECOMMENDATIONS: WHEN SAFE FOR PO INTAKE -> LOW NA/ texture per UPSET WELDING MACHINE OPERATOR ENTERAL NUTRITION RECOMMENDATIONS: Glucerna 1.2 @55ml/hr x24 hrs to provide 1320ml, 1584 kcal, 79g pro, 1063ml free H2O - Maintain current TF to meet 100% est needs - Flush per MD. HOB over 30 degrees ADDITIONAL RECOMMENDATIONS: * Calibrated bedscale wt (w/ added P200 mattress + pump) * Monitor BG on prednisone, niss prn * Monitor lytes, replete as needed * Wound care: add MVI 1 tab QD, VIT C 250mg QD, Cristian 1pkt BID . . .
[2018-10-02] MEDS: Colistin for inhalation INH SCH ×2 (10:50→21:43)
[2018-10-02 12:00] VITALS: BP 142/69
--- NOTE | 2018-10-02 12:12 | Internal Med Progress Note ---
Subjective Physician Name Yonathan Mendoza Attending Physician Yonathan Mendoza MD Current Medications Medications (Trade) Dose Ordered Sig/Ibrahima Route PRN Reason Start Time Stop Time Status Last Admin Dose Admin Acetaminophen (Tylenol) 650 mg Q4H PRN NG Mild Pain (Pain Scale 1-3) 10/01/18 08:45 10/30/18 23:44 Acetazolamide (Diamox) 250 mg TWICE A DAY NG 10/01/18 09:00 10/30/18 08:59 10/02/18 08:38 Apixaban (Eliquis) 5 mg BID NGT 10/01/18 09:00 10/19/18 17:59 10/02/18 08:36 Cefepime HCl 1 gm/ Dextrose 55 ml @ 110 mls/hr Q24H IVPB 10/01/18 01:00 10/06/18 00:59 10/02/18 00:08 Colistimethate Sodium (Colistin *inhalation use only*) 150 mg Q12HR@10,22 INH 10/01/18 10:00 10/03/18 09:59 10/02/18 10:50 Dextrose (Dextrose 50%) 25 ml Q30M PRN IV Hypoglycemia 09/30/18 23:00 10/17/18 06:59 Dextrose (Dextrose 50%) 50 ml Q30M PRN IV Hypoglycemia 09/30/18 23:00 10/17/18 06:59 Docusate Sodium (Colace) 100 mg TID NG 10/01/18 09:00 10/19/18 08:59 10/02/18 08:34 Folic Acid (Folate) 5 mg DAILY NG 10/01/18 09:00 10/18/18 09:59 10/02/18 08:36 Furosemide (Lasix) 40 mg DAILY IV 10/01/18 09:00 10/26/18 08:59 10/02/18 08:34 Ondansetron HCl (Zofran) 4 mg Q6H PRN IVP Nausea & Vomiting 09/30/18 23:45 10/30/18 23:44 Pantoprazole (Protonix) 40 mg DAILY IV 10/01/18 09:00 10/23/18 08:59 10/02/18 08:34 Phenol/Menthol (Chloraseptic) 1 spray Q3H PRN ORAL THROAT PAIN 10/01/18 14:00 6/1/19 13:59 10/01/18 20:39 Polyethylene Glycol (Miralax) 17 gm DAILYPRN PRN NG Constipation 10/01/18 08:45 10/30/18 23:44 Potassium Chloride (K-Dur) 40 meq DAILY NGT 10/01/18 09:00 10/27/18 12:44 10/02/18 08:35 Risperidone (RisperDAL) 1 mg BEDTIME NG 10/01/18 21:00 10/17/18 20:59 10/01/18 20:03 Thiamine HCl (Vitamin B1) 100 mg DAILY NG 10/01/18 09:00 10/20/18 08:59 10/02/18 08:36 Vancomycin HCl (Vanco rx to dose) 1 ea DAILY PRN MISC Per rx protocol 10/01/18 09:00 10/25/18 13:14 Allergies: Coded Allergies: PIPERACILLIN (Unverified Allergy, Unknown, 05/21/18) tolerates cephalosporins TAZOBACTAM (Unverified Allergy, Unknown, 03/10/18) Subjective In CHRISTOPHER, awake, alert, responsive, Talking, NAD , Objective Last Vital Signs Date Time Temp Pulse Resp B/P (MAP) Pulse Ox O2 Delivery O2 Flow Rate FiO2 10/02/18 10:56 86 20 100 Nasal Cannula 2.0 28 10/02/18 08:00 98.0 150/71 (97) Laboratory Tests Test 10/02/18 02:35 White Blood Count 14.2 K/UL (4.8-10.8) H Red Blood Count 3.91 M/UL (4.20-5.40) L Hemoglobin 10.0 G/DL (12.0-16.0) L Hematocrit 31.8 % (37.0-47.0) L Mean Corpuscular Volume 81 FL (80-99) Mean Corpuscular Hemoglobin 25.7 PG (27.0-31.0) L Mean Corpuscular Hemoglobin Concent 31.5 G/DL (32.0-36.0) L Red Cell Distribution Width 19.5 % (11.6-14.8) H Platelet Count 212 K/UL (150-450) Mean Platelet Volume 7.5 FL (6.5-10.1) Neutrophils (%) (Auto) 84.4 % (45.0-75.0) H Lymphocytes (%) (Auto) 7.5 % (20.0-45.0) L Monocytes (%) (Auto) 6.7 % (1.0-10.0) Eosinophils (%) (Auto) 0.7 % (0.0-3.0) Basophils (%) (Auto) 0.7 % (0.0-2.0) Sodium Level 139 MMOL/L (136-145) Potassium Level 3.6 MMOL/L (3.5-5.1) Chloride Level 106 MMOL/L (98-107) Carbon Dioxide Level 28 MMOL/L (21-32) Anion Gap 5 mmol/L (5-15) Blood Urea Nitrogen 20 mg/dL (7-18) H Creatinine 0.5 MG/DL (0.55-1.30) L Estimat Glomerular Filtration Rate mL/min (>60) Glucose Level 131 MG/DL (74-106) H Uric Acid 2.6 MG/DL (2.6-7.2) Calcium Level 8.8 MG/DL (8.5-10.1) Phosphorus Level 3.7 MG/DL (2.5-4.9) Magnesium Level 1.9 MG/DL (1.8-2.4) Total Bilirubin 0.4 MG/DL (0.2-1.0) Aspartate Amino Transf (AST/SGOT) 8 U/L (15-37) L Alanine Aminotransferase (ALT/SGPT) 34 U/L (12-78) Alkaline Phosphatase 55 U/L (46-116) Total Protein 6.4 G/DL (6.4-8.2) Albumin 2.6 G/DL (3.4-5.0) L Globulin 3.8 g/dL Albumin/Globulin Ratio 0.7 (1.0-2.7) L Vancomycin Level Trough 40.7 ug/mL (5.0-12.0) H Intake and Output 10/01/18 10/02/18 19:00 07:00 Intake Total 1055.000 ml 1131.6 ml Output Total 1750 ml 1450 ml Balance -695.000 ml -318.4 ml Free Water 120 ml 50 ml IV Total 275.000 ml 421.6 ml Tube Feeding 660 ml 660 ml Output Urine Total 1750 ml 1450 ml # Bowel Movements 1 Objective General: No acute distress, awake and alert HEENT: NCAT, sclera anicteric, PERRL, EOMI, NG tube Neck: Supple, no significant jugular venous distention, Lungs: decrease air in bases, no Wheeze or Rales. Heart: Regular rate and rhythm, normal S1/S2, no murmur. Abdomen: soft, nontender, nondistended. Normoactive bowel sounds, Morbid obesity. : López cath. Extremities: No Cyanosis , clubbing , or edema. Neuro: A&O x 3, Able to move all extremities Skin: warm, no rashes Assessment/Plan Assessment/Plan ASSESSMENT: This is a 77-year-old white female with: 1. Pneumonia. 2. Acute Hypoxemic respiratory failure. 3. Acute on chronic congestive heart failure. 4. Atrial flutter. 5. Hyponatremia. 6. Chronic obstructive pulmonary disease. 7. Coronary artery disease. 8. Hypertension. 9. Seizure disorder. 10. Paranoid schizophrenia. 11. Intraventricular pacemaker 12. left lung opacification-collapse per CT TREATMENT: 1. Shortness of breath/congestive heart failure. Dr Sierra. Pulmonary consultation Dr. [facility]. 2. Atrial flutter. Continue Eliquis 3. Hyponatremia. resolving 4. Chronic obstructive pulmonary disease. Continue DuoNeb nebulized as 5. Hypertension. Continue Lasix as above. 6. Seizure disorder. The patient is currently off antiseizure medication. 7. Paranoid schizophrenia. Continue Risperdal as above. Abx: Colistin, Vanco IV. Monitor labs and cultures. Bedside swallow study. Yonathan Mendoza MD October 02, 2018 12:12
--- NOTE | 2018-10-02 12:34 | NUR ---
SWALLOW/SPEECH THERAPY NOTE: SUBJECTIVE: PATIENT AND DR AGGARWAL WANT PATIENT TO HAVE ORAL GRAT. THROAT LESS PAINFUL WITH SWALLOWING (DUE TO INTUBATION). OBJECTIVE/ASSESSMENT: PER RN YESTERDAY, PT STARTED TO COUGH 10 MINUTES AFTER HAVING A PUREED AND NECTAR THICK LIQUID MEAL. PO DISCONTINUED AND PT ONLY GIVEN NGT FEEDINGS. LATER DR. AGGARWAL PUT PT BACK ON PO DIET TOLERATED SINCE PT WANTS TO HAVE ORAL GRATIFICATION FOR QUALITY OF LIFE PURPOSES. UNABLE TO HAVE MOD BARIUM SWALLOW STUDY TODAY DUE TO SCHEDULE CONFLICTS. GOALS MET FOR STAFF AWARE OF POSTED ASP PREC BUT GOALS NOT MET FOR INTAKE AND MOSTLY HAS NGT FEEDINGS PLAN: CONTINUE WITH PLAN OF CARE IN [facility] EVAL REPORT.
--- NOTE | 2018-10-02 13:03 | Cardiac Electrophysiology PN ---
Assessment/Plan Assessment/Plan 1. 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 Chronic atrial fibrillation. Rate controlled off any antiarrhythmics. On Eliquis 5 mg bid. 3. Severe COPD. On Solu-Medrol. 4. Diastolic congestive heart failure. 5. Diabetes. 6. S/P resp failure for Left lung collapse. Extubated 7. Dysphagia, failed swallow eval . Video swallow pending DW RN Subjective Subjective Failed swallow eval. In atrial fib with intermittent V pacing Objective Last 24 Hour Vital Signs Date Time Temp Pulse Resp B/P (MAP) Pulse Ox O2 Delivery O2 Flow Rate FiO2 10/02/18 12:00 2.0 10/02/18 12:00 Nasal Cannula 2.0 Nasal Cannula 2.0 10/02/18 12:00 80 10/02/18 12:00 97.8 81 28 142/69 (93) 99 10/02/18 10:56 86 20 100 Nasal Cannula 2.0 28 10/02/18 10:50 85 16 Nasal Cannula 2.0 28 10/02/18 10:50 88 20 98 Nasal Cannula 2.0 28 10/02/18 10:50 Nasal Cannula 2.0 28 10/02/18 10:50 99 Nasal Cannula 2.0 28 10/02/18 08:00 Nasal Cannula 2.0 Nasal Cannula 2.0 10/02/18 08:00 2.0 10/02/18 08:00 98.0 91 28 150/71 (97) 98 10/02/18 08:00 87 10/02/18 04:00 2.0 10/02/18 04:00 98.0 81 20 145/79 (101) 98 10/02/18 04:00 Nasal Cannula 2.0 Nasal Cannula 2.0 10/02/18 03:43 84 10/02/18 00:00 98.2 79 20 129/74 (92) 98 10/02/18 00:00 Nasal Cannula 2.0 Nasal Cannula 2.0 10/02/18 00:00 2.0 10/01/18 23:34 83 10/01/18 21:49 88 20 100 Nasal Cannula 2.0 28 10/01/18 21:42 Nasal Cannula 2.0 28 10/01/18 21:42 85 20 98 Nasal Cannula 2.0 28 10/01/18 21:41 98 Nasal Cannula 2.0 28 10/01/18 20:00 2.0 10/01/18 20:00 98.0 89 22 135/72 (93) 96 10/01/18 20:00 Nasal Cannula 2.0 Nasal Cannula 2.0 10/01/18 19:12 83 10/01/18 16:00 98.2 93 24 137/73 (94) 94 10/01/18 16:00 Nasal Cannula 2.0 Nasal Cannula 2.0 10/01/18 16:00 90 Intake and Output 10/01/18 10/02/18 19:00 07:00 Intake Total 1055.000 ml 1131.6 ml Output Total 1750 ml 1450 ml Balance -695.000 ml -318.4 ml Free Water 120 ml 50 ml IV Total 275.000 ml 421.6 ml Tube Feeding 660 ml 660 ml Output Urine Total 1750 ml 1450 ml # Bowel Movements 1 Laboratory Tests Test 10/02/18 02:35 White Blood Count 14.2 K/UL (4.8-10.8) H Red Blood Count 3.91 M/UL (4.20-5.40) L Hemoglobin 10.0 G/DL (12.0-16.0) L Hematocrit 31.8 % (37.0-47.0) L Mean Corpuscular Volume 81 FL (80-99) Mean Corpuscular Hemoglobin 25.7 PG (27.0-31.0) L Mean Corpuscular Hemoglobin Concent 31.5 G/DL (32.0-36.0) L Red Cell Distribution Width 19.5 % (11.6-14.8) H Platelet Count 212 K/UL (150-450) Mean Platelet Volume 7.5 FL (6.5-10.1) Neutrophils (%) (Auto) 84.4 % (45.0-75.0) H Lymphocytes (%) (Auto) 7.5 % (20.0-45.0) L Monocytes (%) (Auto) 6.7 % (1.0-10.0) Eosinophils (%) (Auto) 0.7 % (0.0-3.0) Basophils (%) (Auto) 0.7 % (0.0-2.0) Sodium Level 139 MMOL/L (136-145) Potassium Level 3.6 MMOL/L (3.5-5.1) Chloride Level 106 MMOL/L (98-107) Carbon Dioxide Level 28 MMOL/L (21-32) Anion Gap 5 mmol/L (5-15) Blood Urea Nitrogen 20 mg/dL (7-18) H Creatinine 0.5 MG/DL (0.55-1.30) L Estimat Glomerular Filtration Rate mL/min (>60) Glucose Level 131 MG/DL (74-106) H Uric Acid 2.6 MG/DL (2.6-7.2) Calcium Level 8.8 MG/DL (8.5-10.1) Phosphorus Level 3.7 MG/DL (2.5-4.9) Magnesium Level 1.9 MG/DL (1.8-2.4) Total Bilirubin 0.4 MG/DL (0.2-1.0) Aspartate Amino Transf (AST/SGOT) 8 U/L (15-37) L Alanine Aminotransferase (ALT/SGPT) 34 U/L (12-78) Alkaline Phosphatase 55 U/L (46-116) Total Protein 6.4 G/DL (6.4-8.2) Albumin 2.6 G/DL (3.4-5.0) L Globulin 3.8 g/dL Albumin/Globulin Ratio 0.7 (1.0-2.7) L Vancomycin Level Trough 40.7 ug/mL (5.0-12.0) H Objective HEAD AND NECK: Mild JVD.NG tube is in LUNGS: Coarse rhonchi bilaterally. Decrease breath sounds on the left CARDIOVASCULAR: Irregular S1 and S2 with no gallop. ABDOMEN: Soft. EXTREMITIES: No edema. Yohan Milian MD October 02, 2018 13:03
[2018-10-02 16:00] VITALS: BP 141/80
--- NOTE | 2018-10-02 16:38 | Nephrology Progress Note ---
Assessment/Plan Problem List: (1) Respiratory failure, acute (2) Hyponatremia (3) Seizure disorder (4) Acute diastolic CHF (congestive heart failure) (5) COPD (chronic obstructive pulmonary disease) (6) Pacemaker Assessment Now extubated HypoNatremia ? Etiology: depletional / Diuretics / SIADH ... bronchoscopy for left lung collapse Acute respiratory failure on BIPAP- COPD Encephalopathy due to high CO2 Pacemaker UTI Low MCV Anemia Hypoalbuminemia EjFx 55% last admission h/o Atfib Plan resume diamox K supplement as needed taper steroid now extubated since 09/28 Off Diamox for now López PRN lasix IV iron monitor lytes Anemia clinton per orders Subjective ROS Limited/Unobtainable: No Constitutional: Reports: malaise Objective Objective Last 24 Hour Vital Signs Date Time Temp Pulse Resp B/P (MAP) Pulse Ox O2 Delivery O2 Flow Rate FiO2 10/02/18 16:00 2.0 10/02/18 16:00 87 10/02/18 16:00 Nasal Cannula 2.0 Nasal Cannula 2.0 10/02/18 12:00 2.0 10/02/18 12:00 Nasal Cannula 2.0 Nasal Cannula 2.0 10/02/18 12:00 80 10/02/18 12:00 97.8 81 28 142/69 (93) 99 10/02/18 10:56 86 20 100 Nasal Cannula 2.0 28 10/02/18 10:50 85 16 Nasal Cannula 2.0 28 10/02/18 10:50 88 20 98 Nasal Cannula 2.0 28 10/02/18 10:50 Nasal Cannula 2.0 28 10/02/18 10:50 99 Nasal Cannula 2.0 28 10/02/18 08:00 Nasal Cannula 2.0 Nasal Cannula 2.0 10/02/18 08:00 2.0 10/02/18 08:00 98.0 91 28 150/71 (97) 98 10/02/18 08:00 87 10/02/18 04:00 2.0 10/02/18 04:00 98.0 81 20 145/79 (101) 98 10/02/18 04:00 Nasal Cannula 2.0 Nasal Cannula 2.0 10/02/18 03:43 84 10/02/18 00:00 98.2 79 20 129/74 (92) 98 10/02/18 00:00 Nasal Cannula 2.0 Nasal Cannula 2.0 10/02/18 00:00 2.0 10/01/18 23:34 83 10/01/18 21:49 88 20 100 Nasal Cannula 2.0 10/01/18 21:42 Nasal Cannula 2.0 28 10/01/18 21:42 85 20 98 Nasal Cannula 2.0 28 10/01/18 21:41 98 Nasal Cannula 2.0 28 10/01/18 20:00 2.0 10/01/18 20:00 98.0 89 22 135/72 (93) 96 10/01/18 20:00 Nasal Cannula 2.0 Nasal Cannula 2.0 10/01/18 19:12 83 Intake and Output 10/01/18 10/02/18 18:59 06:59 Intake Total 1055.000 ml 1131.6 ml Output Total 1750 ml 1450 ml Balance -695.000 ml -318.4 ml Free Water 120 ml 50 ml IV Total 275.000 ml 421.6 ml Tube Feeding 660 ml 660 ml Output Urine Total 1750 ml 1450 ml # Bowel Movements 1 Laboratory Tests 10/02/18 02:35: White Blood Count 14.2H, Red Blood Count 3.91L, Hemoglobin 10.0L, Hematocrit 31.8L, Mean Corpuscular Volume 81, Mean Corpuscular Hemoglobin 25.7L, Mean Corpuscular Hemoglobin Concent 31.5L, Red Cell Distribution Width 19.5H, Platelet Count 212, Mean Platelet Volume 7.5, Neutrophils (%) (Auto) 84.4H, Lymphocytes (%) (Auto) 7.5L, Monocytes (%) (Auto) 6.7, Eosinophils (%) (Auto) 0.7, Basophils (%) (Auto) 0.7, Sodium Level 139, Potassium Level 3.6, Chloride Level 106, Carbon Dioxide Level 28, Anion Gap 5, Blood Urea Nitrogen 20H, Creatinine 0.5L, Estimat Glomerular Filtration Rate , Glucose Level 131H, Uric Acid 2.6, Calcium Level 8.8, Phosphorus Level 3.7, Magnesium Level 1.9, Total Bilirubin 0.4, Aspartate Amino Transf (AST/SGOT) 8L, Alanine Aminotransferase ( ALT/SGPT) 34, Alkaline Phosphatase 55, Total Protein 6.4, Albumin 2.6L, Globulin 3.8, Albumin/Globulin Ratio 0.7L, Vancomycin Level Trough 40.7H 10/02/18 14:15: Random Vancomycin Level 16.7 Height (Feet): 5 Weight (Pounds): 177 General Appearance: no apparent distress EENT: other - NGT Cardiovascular: normal rate Respiratory/Chest: decreased breath sounds Objective no change Danilo uHber MD October 02, 2018 16:38
[2018-10-02] MEDS: Acetaminophen 650mg/20.3ml NG PRN (18:31)
--- NOTE | 2018-10-02 19:18 | Infectious Diseases Prog Note ---
Assessment/Plan Assessment/Plan Assessment: Low grade fever x1, SP Leukocytosis, improving Probable PNA -sp cx MSSA, ABC ( S cefepime, Meropenem) -09/24 CXR: There is persistent opacity at the left lung base. -09/21 CT chest: Completely atelectatic left lung. This is likely due to endobronchial occlusion by debris. However, a small pulmonary hilar mass may also be present. This finding was discussed by phone with Dr. Sierra previously. Small left pleural effusion. Trace right pleural effusion. Posterior and basilar atelectatic changes of the right lung. Single enlarged aortopulmonary window lymph node. This could be neoplastic or reactive. This is increased in size since prior study 03/13/2018. Right lung groundglass opacity, nonspecific but likely on the basis of mild pulmonary edema. Mild cardiomegaly. Pericardial effusion Probable UTI -09/24 u/a wbc tnct nit +, leuk +3; ucx>100k EColi Gram positive bacteremia- real vs contamination -09/24 Bcx 06/05 ConS, 09/26 06/03 : Staph epid Hx of recurrent CONS bacteremia -07/28/18 Bcx 07/06 CONS; 07/29 Bcx Neg; 08/23 BCx neg -2d echo: no obvious vegetation -05/19/18 Bcx 3/ S. hominis sp hominis; 05/21 Bc xNeg 2d eCho: no vegetations. Focal aortic valve sclerosis with reduced cusp excursion. Thickened mitral valve leaflets with reduced excursion. 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, s/p Rx SP VDRF, 04/10 Sp extubated Legionella Ur Ag: Neg, Legionella IgM + / IgG - Scx: No sig growth Flu screen negative Acute on chronic respiratory failure s/p intubation 09/22, 09/28 extubated CHF and COPD exacerbation Atrial flutter dCHF COPD CAD s/p stents Hypertension Seizure disorder Schizophrenia Depression History of intraventricular pacemaker implantation GERD CVA/TIA b/l hip replacement hx of L DVT history of alcohol abuse hx of recurrent admissions hx of high grade CONS bacteremia SNF resident Plan: may start Merrem if WBC does not improve -Cont Cefepime # for PNA and UTI and IV Vancomycin # 8/ ( CoNS bactremia most likley contaminant ) - DC INH colistin d# 7/ -Monitor CBC/CMP, temperatures -Cdiff if diarrhea - aspiration precautions Subjective Allergies: Coded Allergies: PIPERACILLIN (Unverified Allergy, Unknown, 05/21/18) tolerates cephalosporins TAZOBACTAM (Unverified Allergy, Unknown, 03/10/18) Subjective WBC is improving afebrile Objective Vital Signs Last 24 Hour Vital Signs Date Time Temp Pulse Resp B/P (MAP) Pulse Ox O2 Delivery O2 Flow Rate FiO2 10/02/18 16:00 2.0 10/02/18 16:00 98.1 87 28 141/80 (100) 99 10/02/18 16:00 87 10/02/18 16:00 Nasal Cannula 2.0 Nasal Cannula 2.0 10/02/18 12:00 2.0 10/02/18 12:00 Nasal Cannula 2.0 Nasal Cannula 2.0 10/02/18 12:00 80 10/02/18 12:00 97.8 81 28 142/69 (93) 99 10/02/18 10:56 86 20 100 Nasal Cannula 2.0 28 10/02/18 10:50 85 16 Nasal Cannula 2.0 28 10/02/18 10:50 88 20 98 Nasal Cannula 2.0 28 10/02/18 10:50 Nasal Cannula 2.0 28 10/02/18 10:50 99 Nasal Cannula 2.0 28 10/02/18 08:00 Nasal Cannula 2.0 Nasal Cannula 2.0 10/02/18 08:00 2.0 10/02/18 08:00 98.0 91 28 150/71 (97) 98 10/02/18 08:00 87 10/02/18 04:00 2.0 10/02/18 04:00 98.0 81 20 145/79 (101) 98 10/02/18 04:00 Nasal Cannula 2.0 Nasal Cannula 2.0 10/02/18 03:43 84 10/02/18 00:00 98.2 79 20 129/74 (92) 98 10/02/18 00:00 Nasal Cannula 2.0 Nasal Cannula 2.0 10/02/18 00:00 2.0 10/01/18 23:34 83 10/01/18 21:49 88 20 100 Nasal Cannula 2.0 28 10/01/18 21:42 Nasal Cannula 2.0 10/01/18 21:42 85 20 98 Nasal Cannula 2.0 28 10/01/18 21:41 98 Nasal Cannula 2.0 28 10/01/18 20:00 2.0 10/01/18 20:00 98.0 89 22 135/72 (93) 96 10/01/18 20:00 Nasal Cannula 2.0 Nasal Cannula 2.0 Height (Feet): 5 Weight (Pounds): 177 HEENT: atraumatic Respiratory/Chest: no respiratory distress Cardiovascular: regular rhythm Abdomen: no organomegaly Laboratory Tests Test 10/02/18 02:35 10/02/18 14:15 White Blood Count 14.2 K/UL (4.8-10.8) H Red Blood Count 3.91 M/UL (4.20-5.40) L Hemoglobin 10.0 G/DL (12.0-16.0) L Hematocrit 31.8 % (37.0-47.0) L Mean Corpuscular Volume 81 FL (80-99) Mean Corpuscular Hemoglobin 25.7 PG (27.0-31.0) L Mean Corpuscular Hemoglobin Concent 31.5 G/DL (32.0-36.0) L Red Cell Distribution Width 19.5 % (11.6-14.8) H Platelet Count 212 K/UL (150-450) Mean Platelet Volume 7.5 FL (6.5-10.1) Neutrophils (%) (Auto) 84.4 % (45.0-75.0) H Lymphocytes (%) (Auto) 7.5 % (20.0-45.0) L Monocytes (%) (Auto) 6.7 % (1.0-10.0) Eosinophils (%) (Auto) 0.7 % (0.0-3.0) Basophils (%) (Auto) 0.7 % (0.0-2.0) Sodium Level 139 MMOL/L (136-145) Potassium Level 3.6 MMOL/L (3.5-5.1) Chloride Level 106 MMOL/L (98-107) Carbon Dioxide Level 28 MMOL/L (21-32) Anion Gap 5 mmol/L (5-15) Blood Urea Nitrogen 20 mg/dL (7-18) H Creatinine 0.5 MG/DL (0.55-1.30) L Estimat Glomerular Filtration Rate mL/min (>60) Glucose Level 131 MG/DL (74-106) H Uric Acid 2.6 MG/DL (2.6-7.2) Calcium Level 8.8 MG/DL (8.5-10.1) Phosphorus Level 3.7 MG/DL (2.5-4.9) Magnesium Level 1.9 MG/DL (1.8-2.4) Total Bilirubin 0.4 MG/DL (0.2-1.0) Aspartate Amino Transf (AST/SGOT) 8 U/L (15-37) L Alanine Aminotransferase (ALT/SGPT) 34 U/L (12-78) Alkaline Phosphatase 55 U/L (46-116) Total Protein 6.4 G/DL (6.4-8.2) Albumin 2.6 G/DL (3.4-5.0) L Globulin 3.8 g/dL Albumin/Globulin Ratio 0.7 (1.0-2.7) L Vancomycin Level Trough 40.7 ug/mL (5.0-12.0) H Random Vancomycin Level 16.7 ug/mL Current Medications Medications (Trade) Dose Ordered Sig/Ibrahima Route PRN Reason Start Time Stop Time Status Last Admin Dose Admin Acetaminophen (Tylenol) 650 mg Q4H PRN NG Mild Pain (Pain Scale 1-3) 10/01/18 08:45 10/30/18 23:44 10/02/18 18:31 Acetazolamide (Diamox) 250 mg TWICE A DAY NG 10/01/18 09:00 10/30/18 08:59 10/02/18 17:31 Apixaban (Eliquis) 5 mg BID NGT 10/01/18 09:00 10/19/18 17:59 10/02/18 17:31 Cefepime HCl 1 gm/ Dextrose 55 ml @ 110 mls/hr Q24H IVPB 10/01/18 01:00 10/06/18 00:59 10/02/18 00:08 Colistimethate Sodium (Colistin *inhalation use only*) 150 mg Q12HR@10,22 INH 10/01/18 10:00 10/03/18 09:59 10/02/18 10:50 Dextrose (Dextrose 50%) 25 ml Q30M PRN IV Hypoglycemia 09/30/18 23:00 10/17/18 06:59 Dextrose (Dextrose 50%) 50 ml Q30M PRN IV Hypoglycemia 09/30/18 23:00 10/17/18 06:59 Docusate Sodium (Colace) 100 mg TID NG 10/01/18 09:00 10/19/18 08:59 10/02/18 17:31 Folic Acid (Folate) 5 mg DAILY NG 10/01/18 09:00 10/18/18 09:59 10/02/18 08:36 Furosemide (Lasix) 40 mg DAILY IV 10/01/18 09:00 10/26/18 08:59 10/02/18 08:34 Ondansetron HCl (Zofran) 4 mg Q6H PRN IVP Nausea & Vomiting 09/30/18 23:45 10/30/18 23:44 Pantoprazole (Protonix) 40 mg DAILY IV 10/01/18 09:00 10/23/18 08:59 10/02/18 08:34 Phenol/Menthol (Chloraseptic) 1 spray Q3H PRN ORAL THROAT PAIN 10/01/18 14:00 10/31/18 13:59 10/01/18 20:39 Polyethylene Glycol (Miralax) 17 gm DAILYPRN PRN NG Constipation 10/01/18 08:45 10/30/18 23:44 Potassium Chloride (K-Dur) 40 meq DAILY NGT 10/01/18 09:00 10/27/18 12:44 10/02/18 08:35 Risperidone (RisperDAL) 1 mg BEDTIME NG 10/01/18 21:00 10/17/18 20:59 10/01/18 20:03 Thiamine HCl (Vitamin B1) 100 mg DAILY NG 10/01/18 09:00 10/20/18 08:59 10/02/18 08:36 Vancomycin HCl (Vanco rx to dose) 1 ea DAILY PRN MISC Per rx protocol 10/01/18 09:00 10/25/18 13:14 Vancomycin HCl 750 mg/Sodium Chloride 275 ml @ 183.333 mls/hr Q12HR@0400,1600 IVPB 10/02/18 16:00 10/07/18 15:59 10/02/18 15:46 Juan Moeller MD October 02, 2018 19:18
--- NOTE | 2018-10-02 19:23 | NUR ---
HAND-OFF: Report given to Telly Arnold RN. Patient in stable condition.
--- NOTE | 2018-10-02 19:25 | NUR ---
NURSE NOTES: Patient received from Marissa Bahena RN. Patient is awake in bed follows commands with times of confusion. Patient is on on 2L NC, NG-tube on Glucerna 1.2 running 55cc/hr. Patient has left forearm 22G. Bed at its lowest position, call light in reach, and bed rails X3. Will continue to monitor.
--- NOTE | 2018-10-02 19:29 | Cardiology Progress Note ---
Assessment/Plan Assessment/Plan 1. Bronchospasm. 2. Possible left-sided infiltrate or pneumonia. 3. Diastolic heart failure history. 4. Permanent atrial fibrillation. 5. lung collapse 6. hs of pacer look ok tele afib doign well Subjective Cardiovascular: Denies: chest pain Respiratory: Denies: shortness of breath Gastrointestinal/Abdominal: Denies: abdominal pain Genitourinary: Denies: burning Objective Last 24 Hour Vital Signs Date Time Temp Pulse Resp B/P (MAP) Pulse Ox O2 Delivery O2 Flow Rate FiO2 10/02/18 16:00 2.0 10/02/18 16:00 98.1 87 28 141/80 (100) 99 10/02/18 16:00 87 10/02/18 16:00 Nasal Cannula 2.0 Nasal Cannula 2.0 10/02/18 12:00 2.0 10/02/18 12:00 Nasal Cannula 2.0 Nasal Cannula 2.0 10/02/18 12:00 80 10/02/18 12:00 97.8 81 28 142/69 (93) 99 10/02/18 10:56 86 20 100 Nasal Cannula 2.0 28 10/02/18 10:50 85 16 Nasal Cannula 2.0 28 10/02/18 10:50 88 20 98 Nasal Cannula 2.0 28 10/02/18 10:50 Nasal Cannula 2.0 28 10/02/18 10:50 99 Nasal Cannula 2.0 28 10/02/18 08:00 Nasal Cannula 2.0 Nasal Cannula 2.0 10/02/18 08:00 2.0 10/02/18 08:00 98.0 91 28 150/71 (97) 98 10/02/18 08:00 87 10/02/18 04:00 2.0 10/02/18 04:00 98.0 81 20 145/79 (101) 98 10/02/18 04:00 Nasal Cannula 2.0 Nasal Cannula 2.0 10/02/18 03:43 84 10/02/18 00:00 98.2 79 20 129/74 (92) 98 10/02/18 00:00 Nasal Cannula 2.0 Nasal Cannula 2.0 10/02/18 00:00 2.0 10/01/18 23:34 83 10/01/18 21:49 88 20 100 Nasal Cannula 2.0 28 10/01/18 21:42 Nasal Cannula 2.0 10/01/18 21:42 85 20 98 Nasal Cannula 2.0 28 10/01/18 21:41 98 Nasal Cannula 2.0 10/01/18 20:00 2.0 10/01/18 20:00 98.0 89 22 135/72 (93) 96 10/01/18 20:00 Nasal Cannula 2.0 Nasal Cannula 2.0 General Appearance: no apparent distress, alert Neck: supple Cardiovascular: normal rate, regular rhythm Respiratory/Chest: lungs clear Extremities: no swelling Intake and Output 10/01/18 10/02/18 18:59 06:59 Intake Total 1055.000 ml 1131.6 ml Output Total 1750 ml 1450 ml Balance -695.000 ml -318.4 ml Free Water 120 ml 50 ml IV Total 275.000 ml 421.6 ml Tube Feeding 660 ml 660 ml Output Urine Total 1750 ml 1450 ml # Bowel Movements 1 Laboratory Tests Test 10/02/18 02:35 10/02/18 14:15 White Blood Count 14.2 K/UL (4.8-10.8) H Red Blood Count 3.91 M/UL (4.20-5.40) L Hemoglobin 10.0 G/DL (12.0-16.0) L Hematocrit 31.8 % (37.0-47.0) L Mean Corpuscular Volume 81 FL (80-99) Mean Corpuscular Hemoglobin 25.7 PG (27.0-31.0) L Mean Corpuscular Hemoglobin Concent 31.5 G/DL (32.0-36.0) L Red Cell Distribution Width 19.5 % (11.6-14.8) H Platelet Count 212 K/UL (150-450) Mean Platelet Volume 7.5 FL (6.5-10.1) Neutrophils (%) (Auto) 84.4 % (45.0-75.0) H Lymphocytes (%) (Auto) 7.5 % (20.0-45.0) L Monocytes (%) (Auto) 6.7 % (1.0-10.0) Eosinophils (%) (Auto) 0.7 % (0.0-3.0) Basophils (%) (Auto) 0.7 % (0.0-2.0) Sodium Level 139 MMOL/L (136-145) Potassium Level 3.6 MMOL/L (3.5-5.1) Chloride Level 106 MMOL/L (98-107) Carbon Dioxide Level 28 MMOL/L (21-32) Anion Gap 5 mmol/L (5-15) Blood Urea Nitrogen 20 mg/dL (7-18) H Creatinine 0.5 MG/DL (0.55-1.30) L Estimat Glomerular Filtration Rate mL/min (>60) Glucose Level 131 MG/DL (74-106) H Uric Acid 2.6 MG/DL (2.6-7.2) Calcium Level 8.8 MG/DL (8.5-10.1) Phosphorus Level 3.7 MG/DL (2.5-4.9) Magnesium Level 1.9 MG/DL (1.8-2.4) Total Bilirubin 0.4 MG/DL (0.2-1.0) Aspartate Amino Transf (AST/SGOT) 8 U/L (15-37) L Alanine Aminotransferase (ALT/SGPT) 34 U/L (12-78) Alkaline Phosphatase 55 U/L (46-116) Total Protein 6.4 G/DL (6.4-8.2) Albumin 2.6 G/DL (3.4-5.0) L Globulin 3.8 g/dL Albumin/Globulin Ratio 0.7 (1.0-2.7) L Vancomycin Level Trough 40.7 ug/mL (5.0-12.0) H Random Vancomycin Level 16.7 ug/mL Akbar Reno MD October 02, 2018 19:29
[2018-10-02 20:00] VITALS: BP 149/80
[2018-10-03] VITALS: BP 148/73
[2018-10-03] MEDS: Cefepime HCl 1 GM in D5W 55 ML IVPB SCH (01:27)
[2018-10-03 04:00] VITALS: BP 147/70
[2018-10-03] MEDS: Vancomycin 750mg/NS 275ml IVPB SCH ×4 (04:36→16:35)
[2018-10-03 04:47] LABS: BASOPHILS % (AUTO) 0.6 % (0.0-2.0); EOSINOPHILS % (AUTO) 1.5 % (0.0-3.0); HEMOGLOBIN 10.8 G/DL (12.0-16.0); LYMPHOCYTES % (AUTO) 8.4 % (20.0-45.0); MEAN CORPUSCULAR VOLUME 83 FL (80-99); MONOCYTES % (AUTO) 5.4 % (1.0-10.0); NEUTROPHILS % (AUTO) 84.2 % (45.0-75.0); PLATELET COUNT 212 K/UL (150-450); RED BLOOD COUNT 4.24 M/UL (4.20-5.40); RED CELL DISTRIBUTION WIDTH 18.9 % (11.6-14.8); WHITE BLOOD COUNT 13.3 K/UL (4.8-10.8)
[2018-10-03 05:14] LABS: ALANINE AMINOTRANSFERASE 35 U/L (12-78); ALBUMIN 2.7 G/DL (3.4-5.0); ALBUMIN/GLOBULIN RATIO 0.6 (1.0-2.7); ALKALINE PHOSPHATASE 59 U/L (46-116); ANION GAP 7 mmol/L (5-15); ASPARTATE AMINO TRANSFERASE 10 U/L (15-37); BILIRUBIN,TOTAL 0.3 MG/DL (0.2-1.0); BLOOD UREA NITROGEN 19 mg/dL (7-18); CARBON DIOXIDE 29 MMOL/L (21-32); CHLORIDE 108 MMOL/L (98-107); CREATININE 0.4 MG/DL (0.55-1.30); PHOSPHORUS 4.7 MG/DL (2.5-4.9); POTASSIUM 4.1 MMOL/L (3.5-5.1); SODIUM 144 MMOL/L (136-145)
--- NOTE | 2018-10-03 07:15 | NUR ---
HAND-OFF: Report given to Lauren OVALLES.
--- NOTE | 2018-10-03 07:15 | NUR ---
NURSE NOTES: Received pt from Markie Rice RN in stable condition with no cardiopulmonary distress noted. Pt is asleep in bed on 2L O2 via NC. NGT noted in R nare running Glucerna 1.2 at 55cc/hr. F/C noted draining yellow urine. Skin alterations noted. Pt has a L FA 22g IV. No BM noted in jhonatan pad at this time. Bed is in lowest position with alarm on, side rails up x 2 and padded per seizure precaution, call light within reach. Will continue to monitor pt.
--- NOTE | 2018-10-03 07:25 | NUR ---
NURSE NOTES: Left a message for Dr Sierra about most recent ABG results. Awaiting call back.
--- NOTE | 2018-10-03 07:25 | General Progress Note ---
Assessment/Plan Problem List: (1) COPD (chronic obstructive pulmonary disease) ICD Codes: J44.9 - Chronic obstructive pulmonary disease, unspecified SNOMED: 13508216 Qualifiers: Qualified Codes: J44.9 - Chronic obstructive pulmonary disease, unspecified (2) Hyponatremia ICD Codes: E87.1 - Hyponatremia SNOMED: 58500936 (3) HTN (hypertension) ICD Codes: I10 - Hypertension SNOMED: 58197786 Assessment/Plan: failed swallow evaluation no longer on Prednisone - BP is stable electrolytes are normal Subjective ROS Limited/Unobtainable: Yes Allergies: Coded Allergies: PIPERACILLIN (Unverified Allergy, Unknown, 05/21/18) tolerates cephalosporins TAZOBACTAM (Unverified Allergy, Unknown, 03/10/18) Subjective events noted failed swallow evaluation Objective Last 24 Hour Vital Signs Date Time Temp Pulse Resp B/P (MAP) Pulse Ox O2 Delivery O2 Flow Rate FiO2 10/03/18 04:00 76 10/03/18 04:00 97.5 80 20 147/70 (95) 100 10/03/18 04:00 Nasal Cannula 2.0 10/03/18 04:00 2.0 10/03/18 00:00 2.0 10/03/18 00:00 Nasal Cannula 2.0 10/03/18 00:00 88 10/03/18 00:00 98.0 80 20 148/73 (98) 100 10/02/18 21:50 85 20 100 Nasal Cannula 2.0 28 10/02/18 21:40 83 22 98 Nasal Cannula 2.0 28 10/02/18 20:00 2.0 10/02/18 20:00 98.9 85 22 149/80 (103) 100 10/02/18 20:00 Nasal Cannula 2.0 Nasal Cannula 2.0 10/02/18 19:35 Nasal Cannula 2.0 28 10/02/18 19:35 98 Nasal Cannula 2.0 28 10/02/18 19:32 87 10/02/18 16:00 2.0 10/02/18 16:00 98.1 87 28 141/80 (100) 99 10/02/18 16:00 87 10/02/18 16:00 Nasal Cannula 2.0 Nasal Cannula 2.0 10/02/18 12:00 2.0 10/02/18 12:00 Nasal Cannula 2.0 Nasal Cannula 2.0 10/02/18 12:00 80 10/02/18 12:00 97.8 81 28 142/69 (93) 99 10/02/18 10:56 86 20 100 Nasal Cannula 2.0 28 10/02/18 10:50 85 16 Nasal Cannula 2.0 28 10/02/18 10:50 88 20 98 Nasal Cannula 2.0 28 10/02/18 10:50 Nasal Cannula 2.0 28 10/02/18 10:50 99 Nasal Cannula 2.0 28 10/02/18 08:00 Nasal Cannula 2.0 Nasal Cannula 2.0 10/02/18 08:00 2.0 10/02/18 08:00 98.0 91 28 150/71 (97) 98 10/02/18 08:00 87 Intake and Output 10/02/18 10/03/18 19:00 07:00 Intake Total 1195.000 ml 550 ml Output Total 1600 ml 500 ml Balance -405.000 ml 50 ml Free Water 260 ml IV Total 275.000 ml 55 ml Tube Feeding 660 ml 495 ml Output Urine Total 1600 ml 500 ml Laboratory Tests 10/02/18 14:15: Random Vancomycin Level 16.7 10/03/18 04:25: White Blood Count 13.3H, Red Blood Count 4.24, Hemoglobin 10.8L, Hematocrit 35.0L, Mean Corpuscular Volume 83, Mean Corpuscular Hemoglobin 25.6L, Mean Corpuscular Hemoglobin Concent 31.0L, Red Cell Distribution Width 18.9H, Platelet Count 212, Mean Platelet Volume 7.9, Neutrophils (%) (Auto) 84.2H, Lymphocytes (%) (Auto) 8.4L, Monocytes (%) (Auto) 5.4, Eosinophils (%) (Auto) 1.5, Basophils (%) (Auto) 0.6, Sodium Level 144, Potassium Level 4.1, Chloride Level 108H, Carbon Dioxide Level 29, Anion Gap 7, Blood Urea Nitrogen 19H, Creatinine 0.4L, Estimat Glomerular Filtration Rate , Glucose Level 131H, Uric Acid 2.6, Calcium Level 9.0, Phosphorus Level 4.7, Magnesium Level 2.1, Total Bilirubin 0.3, Aspartate Amino Transf (AST/SGOT) 10L, Alanine Aminotransferase ( ALT/SGPT) 35, Alkaline Phosphatase 59, Pro-B-Type Natriuretic Peptide 2716H, Total Protein 6.9, Albumin 2.7L, Globulin 4.2, Albumin/Globulin Ratio 0.6L 10/03/18 07:11: Arterial Blood pH 7.297L, Arterial Blood Partial Pressure CO2 57.4*H, Arterial Blood Partial Pressure O2 112.5H, Arterial Blood HCO3 27.4H, Arterial Blood Oxygen Saturation 97.4, Arterial Blood Base Excess 0.2, Ian Test Positive Height (Feet): 5 Weight (Pounds): 178 General Appearance: lethargic Neck: normal alignment Cardiovascular: normal rate Respiratory/Chest: decreased breath sounds Abdomen: normal bowel sounds Pelvis: normal external exam Edema: 1+ Arm (L), 1+ Arm (R), 1+ Leg (L), 1+ Leg (R), 1+ Pedal (L), 1+ Pedal ( R), 1+ Generalized Objective Current Medications Medications (Trade) Dose Ordered Sig/Ibrahima Route PRN Reason Start Time Stop Time Status Last Admin Dose Admin Acetaminophen (Tylenol) 650 mg Q4H PRN NG Mild Pain (Pain Scale 1-3) 10/01/18 08:45 10/30/18 23:44 10/02/18 18:31 Acetazolamide (Diamox) 250 mg TWICE A DAY NG 10/01/18 09:00 10/30/18 08:59 10/02/18 17:31 Apixaban (Eliquis) 5 mg BID NGT 10/01/18 09:00 10/19/18 17:59 10/02/18 17:31 Cefepime HCl 1 gm/ Dextrose 55 ml @ 110 mls/hr Q24H IVPB 10/01/18 01:00 10/06/18 00:59 10/03/18 01:27 Colistimethate Sodium (Colistin *inhalation use only*) 150 mg Q12HR@10,22 INH 10/01/18 10:00 10/03/18 09:59 10/02/18 21:43 Dextrose (Dextrose 50%) 25 ml Q30M PRN IV Hypoglycemia 09/30/18 23:00 10/17/18 06:59 Dextrose (Dextrose 50%) 50 ml Q30M PRN IV Hypoglycemia 09/30/18 23:00 10/17/18 06:59 Docusate Sodium (Colace) 100 mg TID NG 10/01/18 09:00 10/19/18 08:59 10/02/18 17:31 Folic Acid (Folate) 5 mg DAILY NG 10/01/18 09:00 10/18/18 09:59 10/02/18 08:36 Furosemide (Lasix) 40 mg DAILY IV 10/01/18 09:00 10/26/18 08:59 10/02/18 08:34 Ondansetron HCl (Zofran) 4 mg Q6H PRN IVP Nausea & Vomiting 09/30/18 23:45 10/30/18 23:44 Pantoprazole (Protonix) 40 mg DAILY IV 10/01/18 09:00 10/23/18 08:59 10/02/18 08:34 Phenol/Menthol (Chloraseptic) 1 spray Q3H PRN ORAL THROAT PAIN 10/01/18 14:00 10/31/18 13:59 10/01/18 20:39 Polyethylene Glycol (Miralax) 17 gm DAILYPRN PRN NG Constipation 10/01/18 08:45 10/30/18 23:44 Potassium Chloride (K-Dur) 40 meq DAILY NGT 10/01/18 09:00 10/27/18 12:44 10/02/18 08:35 Risperidone (RisperDAL) 1 mg BEDTIME NG 10/01/18 21:00 10/17/18 20:59 10/02/18 20:45 Thiamine HCl (Vitamin B1) 100 mg DAILY NG 10/01/18 09:00 10/20/18 08:59 10/02/18 08:36 Vancomycin HCl (Vanco rx to dose) 1 ea DAILY PRN MISC Per rx protocol 10/01/18 09:00 10/25/18 13:14 Vancomycin HCl 750 mg/Sodium Chloride 275 ml @ 183.333 mls/hr Q12HR@0400,1600 IVPB 10/02/18 16:00 10/07/18 15:59 10/03/18 04:36 Daniel Little MD October 03, 2018 07:25
[2018-10-03 08:00] VITALS: BP 143/89
--- NOTE | 2018-10-03 08:23 | Pulmonology Progress Note ---
Assessment/Plan Assessment/Plan ASSESSMENT Acute on chronic hypercapnic respiratory failure , requiring intubation 09/22, s /p extubation 09/28 Acute on chronic diastolic CHF COPD with exacerbation probably PNA bacteremia , likely contaminant Left lung collapse - improving Acute encephalopathy 2 to hypercapnia -resolving Dysphagia Atrial fibrillation, permanent HTN HypoNa E/lyte imbalance ( hypo K, hypo Mg) Microcytic anemia Seizure disorder Hx of ETOH abuse Pacemaker ( leadless, normal functioning) Cerebral vascular disease Paranoid schizophrenia PLAN OF CARE CHRISTOPHER on O2 via NC, BiPAP prn titrate O2, HHN CT chest noted fup with CXR Left lung aeration improved on Diamox , dose prior increased since CO2 going up abx as per ID recs bacteremia likely contaminant , BCX 09/29 negative UTD tele - A fib with intermittent pacing s/p steroids venous Duplex BLE- no acute DVT diuresis, monitor volumes, cardiorenal parameters, lytes cardio e/prescription clerk followed ECHO with pEF continue Eliquis, rate controlled lipid panel stable monitor BP optimize Rx as needed swallow eval noted, continue with NGT feeding with strict asp precautions, per ST need barium swallow study when ready Hypo Na w/up noted, nephro follows s/p 3% NaCl ; Na corrected replace lytes as needed avoid nephrotoxic monitor HH with goal to keep Hgb above 7, s/p Venofer x1 anemia w/up c/w anemia of iron deficiency check stool OB negative. , CEA WNL continue Folate and Thiamine GI prophylaxis seizure precautions bowel regimen full code now case discussed and evaluated by supervising physician Subjective Allergies: Coded Allergies: PIPERACILLIN (Unverified Allergy, Unknown, 05/21/18) tolerates cephalosporins TAZOBACTAM (Unverified Allergy, Unknown, 03/10/18) Subjective weaned to o2 via NC, no SOB, pulse ox stable no chest pain, ABG stil with high CO2 mild leukocytosis trending down, no fevers, on NGT feeding more awake and alert Objective Last 24 Hour Vital Signs Date Time Temp Pulse Resp B/P (MAP) Pulse Ox O2 Delivery O2 Flow Rate FiO2 10/03/18 08:13 Nasal Cannula 2.0 28 10/03/18 08:13 97 Nasal Cannula 2.0 28 10/03/18 04:00 76 10/03/18 04:00 97.5 80 20 147/70 (95) 100 10/03/18 04:00 Nasal Cannula 2.0 5/4/19 04:00 2.0 10/03/18 00:00 2.0 10/03/18 00:00 Nasal Cannula 2.0 10/03/18 00:00 88 10/03/18 00:00 98.0 80 20 148/73 (98) 100 10/02/18 21:50 85 20 100 Nasal Cannula 2.0 28 10/02/18 21:40 83 22 98 Nasal Cannula 2.0 28 10/02/18 20:00 2.0 10/02/18 20:00 98.9 85 22 149/80 (103) 100 10/02/18 20:00 Nasal Cannula 2.0 Nasal Cannula 2.0 10/02/18 19:35 Nasal Cannula 2.0 28 10/02/18 19:35 98 Nasal Cannula 2.0 28 10/02/18 19:32 87 10/02/18 16:00 2.0 10/02/18 16:00 98.1 87 28 141/80 (100) 99 10/02/18 16:00 87 10/02/18 16:00 Nasal Cannula 2.0 Nasal Cannula 2.0 10/02/18 12:00 2.0 10/02/18 12:00 Nasal Cannula 2.0 Nasal Cannula 2.0 10/02/18 12:00 80 10/02/18 12:00 97.8 81 28 142/69 (93) 99 10/02/18 10:56 86 20 100 Nasal Cannula 2.0 28 10/02/18 10:50 85 16 Nasal Cannula 2.0 28 10/02/18 10:50 88 20 98 Nasal Cannula 2.0 28 10/02/18 10:50 Nasal Cannula 2.0 28 10/02/18 10:50 99 Nasal Cannula 2.0 28 Intake and Output 10/02/18 10/03/18 19:00 07:00 Intake Total 1195.000 ml 550 ml Output Total 1600 ml 500 ml Balance -405.000 ml 50 ml Free Water 260 ml IV Total 275.000 ml 55 ml Tube Feeding 660 ml 495 ml Output Urine Total 1600 ml 500 ml Objective General Appearance: no acute distress, awake, alert, female HEENT: normocephalic, atraumatic, anicteric, mucous membranes moist Respiratory/Chest: no respiratory distress, no accessory muscle use, decreased breath sounds, O2 via NC , pacemaker Cardiovascular: no JVD, irregularly irregular - A fib on tele , occas V paced Abdomen: normal bowel sounds, soft, non tender , obese Extremities: pedal pulses normal, trace edema BLE Neurologic/Psychiatric: w/chair bound , alert, responsive Musculoskeletal: atrophy BLE Laboratory Tests 10/02/18 14:15: Random Vancomycin Level 16.7 10/03/18 04:25: White Blood Count 13.3H, Red Blood Count 4.24, Hemoglobin 10.8L, Hematocrit 35.0L, Mean Corpuscular Volume 83, Mean Corpuscular Hemoglobin 25.6L, Mean Corpuscular Hemoglobin Concent 31.0L, Red Cell Distribution Width 18.9H, Platelet Count 212, Mean Platelet Volume 7.9, Neutrophils (%) (Auto) 84.2H, Lymphocytes (%) (Auto) 8.4L, Monocytes (%) (Auto) 5.4, Eosinophils (%) (Auto) 1.5, Basophils (%) (Auto) 0.6, Sodium Level 144, Potassium Level 4.1, Chloride Level 108H, Carbon Dioxide Level 29, Anion Gap 7, Blood Urea Nitrogen 19H, Creatinine 0.4L, Estimat Glomerular Filtration Rate , Glucose Level 131H, Uric Acid 2.6, Calcium Level 9.0, Phosphorus Level 4.7, Magnesium Level 2.1, Total Bilirubin 0.3, Aspartate Amino Transf (AST/SGOT) 10L, Alanine Aminotransferase ( ALT/SGPT) 35, Alkaline Phosphatase 59, Pro-B-Type Natriuretic Peptide 2716H, Total Protein 6.9, Albumin 2.7L, Globulin 4.2, Albumin/Globulin Ratio 0.6L 10/03/18 07:11: Arterial Blood pH 7.297L, Arterial Blood Partial Pressure CO2 57.4*H, Arterial Blood Partial Pressure O2 112.5H, Arterial Blood HCO3 27.4H, Arterial Blood Oxygen Saturation 97.4, Arterial Blood Base Excess 0.2, Ian Test Positive Current Medications Medications (Trade) Dose Ordered Sig/Ibrahima Route PRN Reason Start Time Stop Time Status Last Admin Dose Admin Acetaminophen (Tylenol) 650 mg Q4H PRN NG Mild Pain (Pain Scale 1-3) 10/01/18 08:45 10/30/18 23:44 10/02/18 18:31 Acetazolamide (Diamox) 250 mg TWICE A DAY NG 10/01/18 09:00 10/30/18 08:59 10/02/18 17:31 Apixaban (Eliquis) 5 mg BID NGT 10/01/18 09:00 10/19/18 17:59 10/02/18 17:31 Cefepime HCl 1 gm/ Dextrose 55 ml @ 110 mls/hr Q24H IVPB 10/01/18 01:00 10/06/18 00:59 10/03/18 01:27 Colistimethate Sodium (Colistin *inhalation use only*) 150 mg Q12HR@10,22 INH 10/01/18 10:00 10/03/18 09:59 10/02/18 21:43 Dextrose (Dextrose 50%) 25 ml Q30M PRN IV Hypoglycemia 09/30/18 23:00 10/17/18 06:59 Dextrose (Dextrose 50%) 50 ml Q30M PRN IV Hypoglycemia 09/30/18 23:00 10/17/18 06:59 Docusate Sodium (Colace) 100 mg TID NG 10/01/18 09:00 10/19/18 08:59 10/02/18 17:31 Folic Acid (Folate) 5 mg DAILY NG 10/01/18 09:00 10/18/18 09:59 10/02/18 08:36 Furosemide (Lasix) 40 mg DAILY IV 10/01/18 09:00 10/26/18 08:59 10/02/18 08:34 Ondansetron HCl (Zofran) 4 mg Q6H PRN IVP Nausea & Vomiting 09/30/18 23:45 10/30/18 23:44 Pantoprazole (Protonix) 40 mg DAILY IV 10/01/18 09:00 10/23/18 08:59 10/02/18 08:34 Phenol/Menthol (Chloraseptic) 1 spray Q3H PRN ORAL THROAT PAIN 10/01/18 14:00 10/31/18 13:59 10/01/18 20:39 Polyethylene Glycol (Miralax) 17 gm DAILYPRN PRN NG Constipation 10/01/18 08:45 10/30/18 23:44 Potassium Chloride (K-Dur) 40 meq DAILY NGT 10/01/18 09:00 10/27/18 12:44 10/02/18 08:35 Risperidone (RisperDAL) 1 mg BEDTIME NG 10/01/18 21:00 10/17/18 20:59 10/02/18 20:45 Thiamine HCl (Vitamin B1) 100 mg DAILY NG 10/01/18 09:00 10/20/18 08:59 10/02/18 08:36 Vancomycin HCl (Vanco rx to dose) 1 ea DAILY PRN MISC Per rx protocol 10/01/18 09:00 10/25/18 13:14 Vancomycin HCl 750 mg/Sodium Chloride 275 ml @ 183.333 mls/hr Q12HR@0400,1600 IVPB 10/02/18 16:00 10/07/18 15:59 10/03/18 04:36 Jazzy Campuzano NP October 03, 2018 08:23
[2018-10-03] MEDS: Chloraseptic Spray 20mL Bottle ORAL PRN (08:50)
[2018-10-03] MEDS: Pantoprazole Inj IV SCH (08:50)
[2018-10-03] MEDS: Docusate 100mg/10ml Liq NG SCH ×3 (08:52→17:09)
[2018-10-03] MEDS: Thiamine 100mg tab NG SCH (08:53)
[2018-10-03] MEDS: Eliquis 5mg tablet NGT SCH ×2 (08:53→17:11)
[2018-10-03] MEDS ORDERED: Albuterol/Ipratropium 3ml neb HHN PRN (11:30)
--- NOTE | 2018-10-03 11:30 | NUR ---
NURSE NOTES: Clarified new order for Diamox with Casandra from pharmacy. She spoke to Dr. Huber and confirmed new dose with him. Ok to give.
[2018-10-03 12:00] VITALS: BP 138/70
--- NOTE | 2018-10-03 12:15 | NUR ---
Dr Huber made aware of pt's pH level today. Okay to give Diamox (cleared with Casandra from pharmacy as well).
--- NOTE | 2018-10-03 12:25 | Nephrology Progress Note ---
Assessment/Plan Problem List: (1) Respiratory failure, acute (2) Hyponatremia (3) Seizure disorder (4) Acute diastolic CHF (congestive heart failure) (5) COPD (chronic obstructive pulmonary disease) (6) Pacemaker Assessment Now extubated HypoNatremia ? Etiology: depletional / Diuretics / SIADH ... bronchoscopy for left lung collapse Acute respiratory failure on BIPAP- COPD Encephalopathy due to high CO2 Pacemaker UTI Low MCV Anemia Hypoalbuminemia EjFx 55% last admission h/o Atfib Plan resume diamox PCo2 rising K supplement as needed now extubated since 09/28 López PRN lasix IV iron monitor lytes Anemia clinton per orders Subjective ROS Limited/Unobtainable: No Constitutional: Reports: malaise Objective Objective Last 24 Hour Vital Signs Date Time Temp Pulse Resp B/P (MAP) Pulse Ox O2 Delivery O2 Flow Rate FiO2 10/03/18 10:34 87 22 98 Nasal Cannula 2.0 28 10/03/18 10:34 87 22 98 Nasal Cannula 2.0 28 10/03/18 09:00 Nasal Cannula 2.0 10/03/18 08:13 Nasal Cannula 2.0 28 10/03/18 08:13 97 Nasal Cannula 2.0 28 10/03/18 08:00 84 10/03/18 08:00 97.2 86 28 143/89 (107) 96 10/03/18 08:00 2.0 10/03/18 04:00 76 10/03/18 04:00 97.5 80 20 147/70 (95) 100 10/03/18 04:00 Nasal Cannula 2.0 10/03/18 04:00 2.0 10/03/18 00:00 2.0 10/03/18 00:00 Nasal Cannula 2.0 10/03/18 00:00 88 10/03/18 00:00 98.0 80 20 148/73 (98) 100 10/02/18 21:50 85 20 100 Nasal Cannula 2.0 28 10/02/18 21:40 83 22 98 Nasal Cannula 2.0 28 10/02/18 20:00 2.0 10/02/18 20:00 98.9 85 22 149/80 (103) 100 10/02/18 20:00 Nasal Cannula 2.0 Nasal Cannula 2.0 10/02/18 19:35 Nasal Cannula 2.0 28 10/02/18 19:35 98 Nasal Cannula 2.0 28 10/02/18 19:32 87 10/02/18 16:00 2.0 10/02/18 16:00 98.1 87 28 141/80 (100) 99 10/02/18 16:00 87 10/02/18 16:00 Nasal Cannula 2.0 Nasal Cannula 2.0 Intake and Output 10/02/18 10/03/18 19:00 07:00 Intake Total 1195.000 ml 550 ml Output Total 1600 ml 500 ml Balance -405.000 ml 50 ml Free Water 260 ml IV Total 275.000 ml 55 ml Tube Feeding 660 ml 495 ml Output Urine Total 1600 ml 500 ml Laboratory Tests 10/02/18 14:15: Random Vancomycin Level 16.7 10/03/18 04:25: White Blood Count 13.3H, Red Blood Count 4.24, Hemoglobin 10.8L, Hematocrit 35.0L, Mean Corpuscular Volume 83, Mean Corpuscular Hemoglobin 25.6L, Mean Corpuscular Hemoglobin Concent 31.0L, Red Cell Distribution Width 18.9H, Platelet Count 212, Mean Platelet Volume 7.9, Neutrophils (%) (Auto) 84.2H, Lymphocytes (%) (Auto) 8.4L, Monocytes (%) (Auto) 5.4, Eosinophils (%) (Auto) 1.5, Basophils (%) (Auto) 0.6, Sodium Level 144, Potassium Level 4.1, Chloride Level 108H, Carbon Dioxide Level 29, Anion Gap 7, Blood Urea Nitrogen 19H, Creatinine 0.4L, Estimat Glomerular Filtration Rate , Glucose Level 131H, Uric Acid 2.6, Calcium Level 9.0, Phosphorus Level 4.7, Magnesium Level 2.1, Total Bilirubin 0.3, Aspartate Amino Transf (AST/SGOT) 10L, Alanine Aminotransferase ( ALT/SGPT) 35, Alkaline Phosphatase 59, Pro-B-Type Natriuretic Peptide 2716H, Total Protein 6.9, Albumin 2.7L, Globulin 4.2, Albumin/Globulin Ratio 0.6L 10/03/18 07:11: Arterial Blood pH 7.297L, Arterial Blood Partial Pressure CO2 57.4*H, Arterial Blood Partial Pressure O2 112.5H, Arterial Blood HCO3 27.4H, Arterial Blood Oxygen Saturation 97.4, Arterial Blood Base Excess 0.2, Ian Test Positive Height (Feet): 5 Weight (Pounds): 178 General Appearance: no apparent distress Respiratory/Chest: decreased breath sounds Abdomen: soft Objective no change Danilo Huber MD October 03, 2018 12:25
[2018-10-03] MEDS ORDERED: Colistin for inhalation INH SCH ×2 (12:30→22:00)
--- NOTE | 2018-10-03 14:12 | Internal Med Progress Note ---
Subjective Date of Service: October 03, 2018 Physician Name Juan Dutta Attending Physician Yonathan Mendoza MD Current Medications Medications (Trade) Dose Ordered Sig/Ibrahima Route PRN Reason Start Time Stop Time Status Last Admin Dose Admin Acetaminophen (Tylenol) 650 mg Q4H PRN NG Mild Pain (Pain Scale 1-3) 10/01/18 08:45 10/30/18 23:44 10/02/18 18:31 Acetazolamide (Diamox) 500 mg TWICE A DAY NG 10/03/18 18:00 11/02/18 17:59 Albuterol/ Ipratropium (Albuterol/ Ipratropium) 3 ml Q4H PRN HHN Shortness of Breath 10/03/18 11:30 10/08/18 11:29 Apixaban (Eliquis) 5 mg BID NGT 10/01/18 09:00 10/19/18 17:59 10/03/18 08:53 Cefepime HCl 1 gm/ Dextrose 55 ml @ 110 mls/hr Q24H IVPB 10/01/18 01:00 10/06/18 00:59 10/03/18 01:27 Colistimethate Sodium (Colistin *inhalation use only*) 150 mg Q12HR@10,22 INH 10/03/18 22:00 10/10/18 21:59 Dextrose (Dextrose 50%) 25 ml Q30M PRN IV Hypoglycemia 09/30/18 23:00 10/17/18 06:59 Dextrose (Dextrose 50%) 50 ml Q30M PRN IV Hypoglycemia 09/30/18 23:00 10/17/18 06:59 Docusate Sodium (Colace) 100 mg TID NG 10/01/18 09:00 10/19/18 08:59 10/03/18 12:43 Folic Acid (Folate) 5 mg DAILY NG 10/01/18 09:00 10/18/18 09:59 10/03/18 09:00 Furosemide (Lasix) 40 mg DAILY IV 10/01/18 09:00 10/26/18 08:59 10/03/18 08:51 Lansoprazole (Prevacid) 30 mg BID NG 10/03/18 18:00 11/02/18 17:59 Ondansetron HCl (Zofran) 4 mg Q6H PRN IVP Nausea & Vomiting 09/30/18 23:45 10/30/18 23:44 Phenol/Menthol (Chloraseptic) 1 spray Q3H PRN ORAL THROAT PAIN 10/01/18 14:00 10/31/18 13:59 10/03/18 08:50 Polyethylene Glycol (Miralax) 17 gm DAILYPRN PRN NG Constipation 10/01/18 08:45 10/30/18 23:44 Potassium Chloride (K-Dur) 40 meq DAILY NGT 10/01/18 09:00 10/27/18 12:44 10/03/18 08:51 Risperidone (RisperDAL) 1 mg BEDTIME NG 10/01/18 21:00 10/17/18 20:59 10/02/18 20:45 Thiamine HCl (Vitamin B1) 100 mg DAILY NG 10/01/18 09:00 10/20/18 08:59 10/03/18 08:53 Vancomycin HCl (Vanco rx to dose) 1 ea DAILY PRN MISC Per rx protocol 10/01/18 09:00 10/25/18 13:14 Vancomycin HCl 750 mg/Sodium Chloride 275 ml @ 183.333 mls/hr Q12HR@0400,1600 IVPB 10/02/18 16:00 10/07/18 15:59 10/03/18 04:36 Allergies: Coded Allergies: PIPERACILLIN (Unverified Allergy, Unknown, 05/21/18) tolerates cephalosporins TAZOBACTAM (Unverified Allergy, Unknown, 03/10/18) ROS Limited/Unobtainable: No Constitutional: Reports: no symptoms HEENT: Reports: no symptoms Cardiovascular: Reports: no symptoms Respiratory: Reports: no symptoms Gastrointestinal/Abdominal: Reports: no symptoms Genitourinary: Reports: no symptoms Neurologic/Psychiatric: Reports: no symptoms Subjective 77 YO F admitted for respiratory distress. Now left lung opacification. Extubated 09/28/18. Cover for Nick Naranjo-DR Mendoza. CHRISTOPHER. Objective Last Vital Signs Date Time Temp Pulse Resp B/P (MAP) Pulse Ox O2 Delivery O2 Flow Rate FiO2 10/03/18 12:00 96.8 90 26 138/70 (92) 98 10/03/18 12:00 Nasal Cannula 2.0 10/03/18 10:34 28 Laboratory Tests Test 10/02/18 14:15 10/03/18 04:25 10/03/18 07:11 Random Vancomycin Level 16.7 ug/mL White Blood Count 13.3 K/UL (4.8-10.8) H Red Blood Count 4.24 M/UL (4.20-5.40) Hemoglobin 10.8 G/DL (12.0-16.0) L Hematocrit 35.0 % (37.0-47.0) L Mean Corpuscular Volume 83 FL (80-99) Mean Corpuscular Hemoglobin 25.6 PG (27.0-31.0) L Mean Corpuscular Hemoglobin Concent 31.0 G/DL (32.0-36.0) L Red Cell Distribution Width 18.9 % (11.6-14.8) H Platelet Count 212 K/UL (150-450) Mean Platelet Volume 7.9 FL (6.5-10.1) Neutrophils (%) (Auto) 84.2 % (45.0-75.0) H Lymphocytes (%) (Auto) 8.4 % (20.0-45.0) L Monocytes (%) (Auto) 5.4 % (1.0-10.0) Eosinophils (%) (Auto) 1.5 % (0.0-3.0) Basophils (%) (Auto) 0.6 % (0.0-2.0) Sodium Level 144 MMOL/L (136-145) Potassium Level 4.1 MMOL/L (3.5-5.1) Chloride Level 108 MMOL/L (98-107) H Carbon Dioxide Level 29 MMOL/L (21-32) Anion Gap 7 mmol/L (5-15) Blood Urea Nitrogen 19 mg/dL (7-18) H Creatinine 0.4 MG/DL (0.55-1.30) L Estimat Glomerular Filtration Rate mL/min (>60) Glucose Level 131 MG/DL (74-106) H Uric Acid 2.6 MG/DL (2.6-7.2) Calcium Level 9.0 MG/DL (8.5-10.1) Phosphorus Level 4.7 MG/DL (2.5-4.9) Magnesium Level 2.1 MG/DL (1.8-2.4) Total Bilirubin 0.3 MG/DL (0.2-1.0) Aspartate Amino Transf (AST/SGOT) 10 U/L (15-37) L Alanine Aminotransferase (ALT/SGPT) 35 U/L (12-78) Alkaline Phosphatase 59 U/L (46-116) Pro-B-Type Natriuretic Peptide 2716 pg/mL (0-125) H Total Protein 6.9 G/DL (6.4-8.2) Albumin 2.7 G/DL (3.4-5.0) L Globulin 4.2 g/dL Albumin/Globulin Ratio 0.6 (1.0-2.7) L Arterial Blood pH 7.297 (7.350-7.450) Arterial Blood Partial Pressure CO2 57.4 mmHg (35.0-45.0) *H Arterial Blood Partial Pressure O2 112.5 mmHg (75.0-100.0) H Arterial Blood HCO3 27.4 mmol/L (22.0-26.0) H Arterial Blood Oxygen Saturation 97.4 % (95-100) Arterial Blood Base Excess 0.2 (-2-2) Ian Test Positive Intake and Output 10/02/18 10/03/18 19:00 07:00 Intake Total 1195.000 ml 655 ml Output Total 1600 ml 500 ml Balance -405.000 ml 155 ml Free Water 260 ml 50 ml IV Total 275.000 ml 55 ml Tube Feeding 660 ml 550 ml Output Urine Total 1600 ml 500 ml Objective PHYSICAL EXAMINATION: GENERAL: The patient is a well-developed and well-nourished white female, who is in moderate respiratory distress. HEENT: Eyes, pupils are equal and responsive to light and accommodation. Extraocular movements are intact. NECK: Supple without lymphadenopathy. CHEST: Nasal Canula; Few rales in bilateral bases, otherwise, Lungs are clear to auscultation bilaterally without wheezes CARDIOVASCULAR: Regular rhythm and rate. S1 and S2 normal without murmurs, rubs, or gallops. ABDOMEN: Soft, nontender, and nondistended. Positive bowel sounds. No evidence of hepatosplenomegaly. Currently, no rebound or guarding noted. EXTREMITIES: Negative for clubbing, cyanosis, or edema. RECTAL/GENITAL: Refused. NEUROLOGIC: Cranial nerves II through XII are grossly intact without focal deficits. Motor strength is 5/5 bilaterally. Deep tendon reflexes are 2+ plantar. Assessment/Plan Assessment/Plan ASSESSMENT: This is a 77-year-old white female with: 1. Shortness of breath. 2. Hypoxia. 3. Acute on chronic congestive heart failure. 4. Atrial flutter. 5. Hyponatremia. 6. Chronic obstructive pulmonary disease. 7. Coronary artery disease. 8. Hypertension. 9. Seizure disorder. 10. Paranoid schizophrenia. 11. Intraventricular pacemaker 12. left lung opacification-collapse per CT TREATMENT: 1. Shortness of breath/congestive heart failure. Extubated 09/28/[address] Sierra[address] Cardiologyconsultation has been obtained with Dr. Milian. The patient is currently receiving intravenous Lasix. We will follow recommendation of Cardiology. BNP is elevated at over greater than 5000. An echocardiogram is pending. 2. Atrial flutter. Continue Eliquis as above. 3. Hyponatremia. The patient is currently receiving intravenous fluids. 4. Chronic obstructive pulmonary disease. Continue DuoNeb nebulized as above. The patient was initially placed on BiPAP in the emergency room. A Pulmonary consultation has been obtained with Dr. Mendel Sierra. 5. Hypertension. Continue Lasix as above. 6. Seizure disorder. The patient is currently off antiseizure medication. 7. Paranoid schizophrenia. Continue Risperdal as above. 8. antibiotic=cefepime and Juan Gamboa MD October 03, 2018 14:12
--- NOTE | 2018-10-03 14:53 | Infectious Diseases Prog Note ---
Assessment/Plan Assessment/Plan Assessment: Low grade fever x1, SP Leukocytosis, improving Probable PNA (no cough) -sp cx MSSA, ABC ( S cefepime, Meropenem) -09/24 CXR: There is persistent opacity at the left lung base. -09/21 CT chest: Completely atelectatic left lung. This is likely due to endobronchial occlusion by debris. However, a small pulmonary hilar mass may also be present. This finding was discussed by phone with Dr. Sierra previously. Small left pleural effusion. Trace right pleural effusion. Posterior and basilar atelectatic changes of the right lung. Single enlarged aortopulmonary window lymph node. This could be neoplastic or reactive. This is increased in size since prior study 03/13/2018. Right lung groundglass opacity, nonspecific but likely on the basis of mild pulmonary edema. Mild cardiomegaly. Pericardial effusion Probable UTI -09/24 u/a wbc tnct nit +, leuk +3; ucx>100k EColi Gram positive bacteremia- real vs contamination -09/24 Bcx 06/05 ConS, 09/26 06/03 : Staph epid Hx of recurrent CONS bacteremia -07/28/18 Bcx 07/06 CONS; 07/29 Bcx Neg; 08/23 BCx neg -2d echo: no obvious vegetation -05/19/18 Bcx 08/03 S. hominis sp hominis; 05/21 Bc xNeg 2d eCho: no vegetations. Focal aortic valve sclerosis with reduced cusp excursion. Thickened mitral valve leaflets with reduced excursion. 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, s/p Rx SP VDRF, 04/10 Sp extubated Legionella Ur Ag: Neg, Legionella IgM + / IgG - Scx: No sig growth Flu screen negative Acute on chronic respiratory failure s/p intubation 09/22, 09/28 extubated CHF and COPD exacerbation Atrial flutter dCHF COPD CAD s/p stents Hypertension Seizure disorder Schizophrenia Depression History of intraventricular pacemaker implantation GERD CVA/TIA b/l hip replacement hx of L DVT history of alcohol abuse hx of recurrent admissions hx of high grade CONS bacteremia SNF resident Plan: may start Merrem if WBC does not improve -Cont Cefepime # for PNA and UTI and IV Vancomycin # / (for Pneum, CoNS bactremia most likley contaminant ) - 10/03 Sp INH colistin d# 12/06 -Monitor CBC/CMP, temperatures -Cdiff if diarrhea - aspiration precautions Subjective Allergies: Coded Allergies: PIPERACILLIN (Unverified Allergy, Unknown, 05/21/18) tolerates cephalosporins TAZOBACTAM (Unverified Allergy, Unknown, 03/10/18) Subjective WBC is improving afebrile no cough Objective Vital Signs Last 24 Hour Vital Signs Date Time Temp Pulse Resp B/P (MAP) Pulse Ox O2 Delivery O2 Flow Rate FiO2 10/03/18 12:00 96.8 90 26 138/70 (92) 98 10/03/18 12:00 Nasal Cannula 2.0 10/03/18 12:00 2.0 10/03/18 12:00 87 10/03/18 10:34 87 22 98 Nasal Cannula 2.0 28 10/03/18 10:34 87 22 98 Nasal Cannula 2.0 28 10/03/18 09:00 Nasal Cannula 2.0 10/03/18 08:13 Nasal Cannula 2.0 28 10/03/18 08:13 97 Nasal Cannula 2.0 28 10/03/18 08:00 84 10/03/18 08:00 97.2 86 28 143/89 (107) 96 10/03/18 08:00 2.0 10/03/18 04:00 76 10/03/18 04:00 97.5 80 20 147/70 (95) 100 10/03/18 04:00 Nasal Cannula 2.0 10/03/18 04:00 2.0 10/03/18 00:00 2.0 10/03/18 00:00 Nasal Cannula 2.0 10/03/18 00:00 88 10/03/18 00:00 98.0 80 20 148/73 (98) 100 10/02/18 21:50 85 20 100 Nasal Cannula 2.0 28 10/02/18 21:40 83 22 98 Nasal Cannula 2.0 28 10/02/18 20:00 2.0 10/02/18 20:00 98.9 85 22 149/80 (103) 100 10/02/18 20:00 Nasal Cannula 2.0 Nasal Cannula 2.0 10/02/18 19:35 Nasal Cannula 2.0 28 10/02/18 19:35 98 Nasal Cannula 2.0 28 10/02/18 19:32 87 10/02/18 16:00 2.0 10/02/18 16:00 98.1 87 28 141/80 (100) 99 10/02/18 16:00 87 10/02/18 16:00 Nasal Cannula 2.0 Nasal Cannula 2.0 Height (Feet): 5 Weight (Pounds): 178 HEENT: anicteric Respiratory/Chest: no respiratory distress Cardiovascular: regular rhythm Abdomen: non distended Laboratory Tests Test 10/03/18 04:25 10/03/18 07:11 White Blood Count 13.3 K/UL (4.8-10.8) H Red Blood Count 4.24 M/UL (4.20-5.40) Hemoglobin 10.8 G/DL (12.0-16.0) L Hematocrit 35.0 % (37.0-47.0) L Mean Corpuscular Volume 83 FL (80-99) Mean Corpuscular Hemoglobin 25.6 PG (27.0-31.0) L Mean Corpuscular Hemoglobin Concent 31.0 G/DL (32.0-36.0) L Red Cell Distribution Width 18.9 % (11.6-14.8) H Platelet Count 212 K/UL (150-450) Mean Platelet Volume 7.9 FL (6.5-10.1) Neutrophils (%) (Auto) 84.2 % (45.0-75.0) H Lymphocytes (%) (Auto) 8.4 % (20.0-45.0) L Monocytes (%) (Auto) 5.4 % (1.0-10.0) Eosinophils (%) (Auto) 1.5 % (0.0-3.0) Basophils (%) (Auto) 0.6 % (0.0-2.0) Sodium Level 144 MMOL/L (136-145) Potassium Level 4.1 MMOL/L (3.5-5.1) Chloride Level 108 MMOL/L (98-107) H Carbon Dioxide Level 29 MMOL/L (21-32) Anion Gap 7 mmol/L (5-15) Blood Urea Nitrogen 19 mg/dL (7-18) H Creatinine 0.4 MG/DL (0.55-1.30) L Estimat Glomerular Filtration Rate mL/min (>60) Glucose Level 131 MG/DL (74-106) H Uric Acid 2.6 MG/DL (2.6-7.2) Calcium Level 9.0 MG/DL (8.5-10.1) Phosphorus Level 4.7 MG/DL (2.5-4.9) Magnesium Level 2.1 MG/DL (1.8-2.4) Total Bilirubin 0.3 MG/DL (0.2-1.0) Aspartate Amino Transf (AST/SGOT) 10 U/L (15-37) L Alanine Aminotransferase (ALT/SGPT) 35 U/L (12-78) Alkaline Phosphatase 59 U/L (46-116) Pro-B-Type Natriuretic Peptide 2716 pg/mL (0-125) H Total Protein 6.9 G/DL (6.4-8.2) Albumin 2.7 G/DL (3.4-5.0) L Globulin 4.2 g/dL Albumin/Globulin Ratio 0.6 (1.0-2.7) L Arterial Blood pH 7.297 (7.350-7.450) Arterial Blood Partial Pressure CO2 57.4 mmHg (35.0-45.0) *H Arterial Blood Partial Pressure O2 112.5 mmHg (75.0-100.0) H Arterial Blood HCO3 27.4 mmol/L (22.0-26.0) H Arterial Blood Oxygen Saturation 97.4 % (95-100) Arterial Blood Base Excess 0.2 (-2-2) Ian Test Positive Current Medications Medications (Trade) Dose Ordered Sig/Ibrahima Route PRN Reason Start Time Stop Time Status Last Admin Dose Admin Acetaminophen (Tylenol) 650 mg Q4H PRN NG Mild Pain (Pain Scale 1-3) 10/01/18 08:45 10/30/18 23:44 10/02/18 18:31 Acetazolamide (Diamox) 500 mg TWICE A DAY NG 10/03/18 18:00 11/02/18 17:59 Albuterol/ Ipratropium (Albuterol/ Ipratropium) 3 ml Q4H PRN HHN Shortness of Breath 10/03/18 11:30 10/08/18 11:29 Apixaban (Eliquis) 5 mg BID NGT 10/01/18 09:00 10/19/18 17:59 10/03/18 08:53 Cefepime HCl 1 gm/ Dextrose 55 ml @ 110 mls/hr Q24H IVPB 10/01/18 01:00 10/06/18 00:59 10/03/18 01:27 Colistimethate Sodium (Colistin *inhalation use only*) 150 mg Q12HR@10,22 INH 10/03/18 22:00 10/10/18 21:59 Dextrose (Dextrose 50%) 25 ml Q30M PRN IV Hypoglycemia 09/30/18 23:00 10/17/18 06:59 Dextrose (Dextrose 50%) 50 ml Q30M PRN IV Hypoglycemia 09/30/18 23:00 10/17/18 06:59 Docusate Sodium (Colace) 100 mg TID NG 10/01/18 09:00 10/19/18 08:59 10/03/18 12:43 Folic Acid (Folate) 5 mg DAILY NG 10/01/18 09:00 10/18/18 09:59 10/03/18 09:00 Furosemide (Lasix) 40 mg DAILY IV 10/01/18 09:00 10/26/18 08:59 10/03/18 08:51 Lansoprazole (Prevacid) 30 mg BID NG 10/03/18 18:00 11/02/18 17:59 Ondansetron HCl (Zofran) 4 mg Q6H PRN IVP Nausea & Vomiting 09/30/18 23:45 10/30/18 23:44 Phenol/Menthol (Chloraseptic) 1 spray Q3H PRN ORAL THROAT PAIN 10/01/18 14:00 10/31/18 13:59 10/03/18 08:50 Polyethylene Glycol (Miralax) 17 gm DAILYPRN PRN NG Constipation 10/01/18 08:45 10/30/18 23:44 Potassium Chloride (K-Dur) 40 meq DAILY NGT 10/01/18 09:00 10/27/18 12:44 10/03/18 08:51 Risperidone (RisperDAL) 1 mg BEDTIME NG 10/01/18 21:00 10/17/18 20:59 10/02/18 20:45 Thiamine HCl (Vitamin B1) 100 mg DAILY NG 10/01/18 09:00 10/20/18 08:59 10/03/18 08:53 Vancomycin HCl (Vanco rx to dose) 1 ea DAILY PRN MISC Per rx protocol 10/01/18 09:00 10/25/18 13:14 Vancomycin HCl 750 mg/Sodium Chloride 275 ml @ 183.333 mls/hr Q12HR@0400,1600 IVPB 10/02/18 16:00 10/07/18 15:59 10/03/18 04:36 Juan Moeller MD October 03, 2018 14:53
[2018-10-03 16:00] VITALS: BP 133/75
--- NOTE | 2018-10-03 16:00 | Cardiac Electrophysiology PN ---
Assessment/Plan Assessment/Plan 1. 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 Chronic atrial fibrillation, stable off any antiarrhythmics. On Eliquis 5 mg bid. 3. Severe COPD. On Solu-Medrol. 4. Diastolic congestive heart failure. 5. Diabetes. 6. S/P resp failure for Left lung collapse. Extubated 7. Dysphagia, failed swallow eval . Video swallow pending DW RN Subjective Subjective In atrial fib with intermittent V pacing Objective Last 24 Hour Vital Signs Date Time Temp Pulse Resp B/P (MAP) Pulse Ox O2 Delivery O2 Flow Rate FiO2 10/03/18 12:00 96.8 90 26 138/70 (92) 98 10/03/18 12:00 Nasal Cannula 2.0 10/03/18 12:00 2.0 10/03/18 12:00 87 10/03/18 10:34 87 22 98 Nasal Cannula 2.0 28 10/03/18 10:34 87 22 98 Nasal Cannula 2.0 28 10/03/18 09:00 Nasal Cannula 2.0 10/03/18 08:13 Nasal Cannula 2.0 28 10/03/18 08:13 97 Nasal Cannula 2.0 28 10/03/18 08:00 84 10/03/18 08:00 97.2 86 28 143/89 (107) 96 10/03/18 08:00 2.0 10/03/18 04:00 76 10/03/18 04:00 97.5 80 20 147/70 (95) 100 10/03/18 04:00 Nasal Cannula 2.0 10/03/18 04:00 2.0 10/03/18 00:00 2.0 10/03/18 00:00 Nasal Cannula 2.0 10/03/18 00:00 88 10/03/18 00:00 98.0 80 20 148/73 (98) 100 10/02/18 21:50 85 20 100 Nasal Cannula 2.0 28 10/02/18 21:40 83 22 98 Nasal Cannula 2.0 28 10/02/18 20:00 2.0 10/02/18 20:00 98.9 85 22 149/80 (103) 100 10/02/18 20:00 Nasal Cannula 2.0 Nasal Cannula 2.0 10/02/18 19:35 Nasal Cannula 2.0 28 10/02/18 19:35 98 Nasal Cannula 2.0 28 10/02/18 19:32 87 10/02/18 16:00 2.0 10/02/18 16:00 98.1 87 28 141/80 (100) 99 10/02/18 16:00 87 10/02/18 16:00 Nasal Cannula 2.0 Nasal Cannula 2.0 Intake and Output 10/02/18 10/03/18 19:00 07:00 Intake Total 1195.000 ml 655 ml Output Total 1600 ml 500 ml Balance -405.000 ml 155 ml Free Water 260 ml 50 ml IV Total 275.000 ml 55 ml Tube Feeding 660 ml 550 ml Output Urine Total 1600 ml 500 ml Laboratory Tests Test 10/03/18 04:25 10/03/18 07:11 White Blood Count 13.3 K/UL (4.8-10.8) H Red Blood Count 4.24 M/UL (4.20-5.40) Hemoglobin 10.8 G/DL (12.0-16.0) L Hematocrit 35.0 % (37.0-47.0) L Mean Corpuscular Volume 83 FL (80-99) Mean Corpuscular Hemoglobin 25.6 PG (27.0-31.0) L Mean Corpuscular Hemoglobin Concent 31.0 G/DL (32.0-36.0) L Red Cell Distribution Width 18.9 % (11.6-14.8) H Platelet Count 212 K/UL (150-450) Mean Platelet Volume 7.9 FL (6.5-10.1) Neutrophils (%) (Auto) 84.2 % (45.0-75.0) H Lymphocytes (%) (Auto) 8.4 % (20.0-45.0) L Monocytes (%) (Auto) 5.4 % (1.0-10.0) Eosinophils (%) (Auto) 1.5 % (0.0-3.0) Basophils (%) (Auto) 0.6 % (0.0-2.0) Sodium Level 144 MMOL/L (136-145) Potassium Level 4.1 MMOL/L (3.5-5.1) Chloride Level 108 MMOL/L (98-107) H Carbon Dioxide Level 29 MMOL/L (21-32) Anion Gap 7 mmol/L (5-15) Blood Urea Nitrogen 19 mg/dL (7-18) H Creatinine 0.4 MG/DL (0.55-1.30) L Estimat Glomerular Filtration Rate mL/min (>60) Glucose Level 131 MG/DL (74-106) H Uric Acid 2.6 MG/DL (2.6-7.2) Calcium Level 9.0 MG/DL (8.5-10.1) Phosphorus Level 4.7 MG/DL (2.5-4.9) Magnesium Level 2.1 MG/DL (1.8-2.4) Total Bilirubin 0.3 MG/DL (0.2-1.0) Aspartate Amino Transf (AST/SGOT) 10 U/L (15-37) L Alanine Aminotransferase (ALT/SGPT) 35 U/L (12-78) Alkaline Phosphatase 59 U/L (46-116) Pro-B-Type Natriuretic Peptide 2716 pg/mL (0-125) H Total Protein 6.9 G/DL (6.4-8.2) Albumin 2.7 G/DL (3.4-5.0) L Globulin 4.2 g/dL Albumin/Globulin Ratio 0.6 (1.0-2.7) L Arterial Blood pH 7.297 (7.350-7.450) Arterial Blood Partial Pressure CO2 57.4 mmHg (35.0-45.0) *H Arterial Blood Partial Pressure O2 112.5 mmHg (75.0-100.0) H Arterial Blood HCO3 27.4 mmol/L (22.0-26.0) H Arterial Blood Oxygen Saturation 97.4 % (95-100) Arterial Blood Base Excess 0.2 (-2-2) Ian Test Positive Objective HEAD AND NECK: Mild JVD.NG tube is in LUNGS: Coarse rhonchi bilaterally. Decrease breath sounds on the left CARDIOVASCULAR: Irregular S1 and S2 with no gallop. ABDOMEN: Soft. EXTREMITIES: No edema. Yohan Milian MD October 03, 2018 16:00
[2018-10-03] MEDS ORDERED: Tubing IV Secondary IV ONE (16:13)
[2018-10-03] MEDS ORDERED: Sterile Water Irrig 1000ml IRRIG ONE (16:13)
[2018-10-03] MEDS ORDERED: NS 275ml ONE (16:13)
--- NOTE | 2018-10-03 19:21 | NUR ---
HAND-OFF: Report given to CHARLETTE Guerrero. Pt in stable condition.
--- NOTE | 2018-10-03 19:22 | NUR ---
NURSE NOTES: Received patient from Veronique OVALLES. Patient is awake and oriented x3-x4. Patient is receiving oxygen via Nasal Cannula at 2L/min. Nasogastric Tube is patent and receiving Glucerna 1.2 at 55cc/hr, patient is tolerating well. López catheter is patent and draining. IV site is left forearm 22g patent and asymptomatic. Bed is locked, placed in lowest position, head of bed elevated, left side of body is elevated with two pillows, side rails up x3, call light within reach. Will continue to monitor.
[2018-10-03 20:00] VITALS: BP 150/66
--- NOTE | 2018-10-03 20:40 | NUR ---
NURSE NOTES: Patient was placed on bipap at 2040, after 30 minutes the patient refused to keep it on. Dr. Sierra was made aware.
[2018-10-03] MEDS: Acetaminophen 650mg/20.3ml NG PRN (21:57)
[2018-10-04] VITALS: BP 125/64
[2018-10-04] MEDS: Cefepime HCl 1 GM in D5W 55 ML IVPB SCH (01:16)
[2018-10-04 04:00] VITALS: BP 145/68
[2018-10-04] MEDS: Vancomycin 750mg/NS 275ml IVPB SCH ×4 (04:27→15:03)
[2018-10-04 04:46] LABS: BASOPHILS % (AUTO) 0.5 % (0.0-2.0); EOSINOPHILS % (AUTO) 1.7 % (0.0-3.0); HEMATOCRIT 33.4 % (37.0-47.0); HEMOGLOBIN 10.3 G/DL (12.0-16.0); MEAN CORPUSCULAR VOLUME 83 FL (80-99); MONOCYTES % (AUTO) 4.9 % (1.0-10.0); NEUTROPHILS % (AUTO) 83.9 % (45.0-75.0); PLATELET COUNT 212 K/UL (150-450); RED BLOOD COUNT 4.04 M/UL (4.20-5.40); RED CELL DISTRIBUTION WIDTH 18.9 % (11.6-14.8); WHITE BLOOD COUNT 11.4 K/UL (4.8-10.8)
[2018-10-04 05:18] LABS: ALANINE AMINOTRANSFERASE 27 U/L (12-78); ALBUMIN 2.6 G/DL (3.4-5.0); ALBUMIN/GLOBULIN RATIO 0.6 (1.0-2.7); ALKALINE PHOSPHATASE 63 U/L (46-116); ANION GAP 7 mmol/L (5-15); ASPARTATE AMINO TRANSFERASE 10 U/L (15-37); BILIRUBIN,TOTAL 0.3 MG/DL (0.2-1.0); BLOOD UREA NITROGEN 22 mg/dL (7-18); CARBON DIOXIDE 30 MMOL/L (21-32); CHLORIDE 107 MMOL/L (98-107); CREATININE 0.5 MG/DL (0.55-1.30); POTASSIUM 3.6 MMOL/L (3.5-5.1); SODIUM 144 MMOL/L (136-145)
[2018-10-04 06:33] LABS: PHOSPHORUS 4.9 MG/DL (2.5-4.9)
[2018-10-04] MEDS: Chloraseptic Spray 20mL Bottle ORAL PRN (06:55)
--- NOTE | 2018-10-04 07:31 | NUR ---
HAND-OFF: Report given to CHARLETTE Singer. Patient showing no signs of distress.
--- NOTE | 2018-10-04 07:32 | NUR ---
NURSE NOTES: Received patient in bed. On nasal cannula at 2LPM. Right NGTF inplace. López cath inplace. Contact isolation observed. Will continue plan of care.
--- NOTE | 2018-10-04 07:49 | Pulmonology Progress Note ---
Assessment/Plan Assessment/Plan ASSESSMENT Acute on chronic hypercapnic respiratory failure , requiring intubation 09/22, s /p extubation 09/28 Acute on chronic diastolic CHF COPD with exacerbation probably PNA bacteremia , likely contaminant Left lung collapse - improving Acute encephalopathy 2 to hypercapnia -resolving Dysphagia Atrial fibrillation, permanent HTN HypoNa E/lyte imbalance ( hypo K, hypo Mg) Microcytic anemia Seizure disorder Hx of ETOH abuse Pacemaker ( leadless, normal functioning) Cerebral vascular disease Paranoid schizophrenia PLAN OF CARE CHRISTOPHER on Diamox , dose prior increased since CO2 going up, however ABG with unchanged resp acidosis place on BiPAP now, ABG , CXR in am titrate O2, HHN CT chest noted Left lung aeration improved abx as per ID recs bacteremia likely contaminant , BCX 09/29 negative UTD tele - A fib with intermittent pacing s/p steroids venous Duplex BLE- no acute DVT diuresis, monitor volumes, cardiorenal parameters, 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 , CEA WNL continue Folate and Thiamine GI prophylaxis seizure precautions bowel regimen full code now case discussed and evaluated by supervising physician Subjective Allergies: Coded Allergies: PIPERACILLIN (Unverified Allergy, Unknown, 05/21/18) tolerates cephalosporins TAZOBACTAM (Unverified Allergy, Unknown, 03/10/18) Subjective weaned to o2 via NC, no SOB, pulse ox stable no chest pain, ABG still with high CO2 and acidosis mild leukocytosis trending down, no fevers, on NGT feeding more awake and alert Objective Last 24 Hour Vital Signs Date Time Temp Pulse Resp B/P (MAP) Pulse Ox O2 Delivery O2 Flow Rate FiO2 10/04/18 04:00 97.3 92 26 145/68 (93) 97 10/04/18 04:00 2.0 10/04/18 04:00 Nasal Cannula 2.0 10/04/18 03:39 88 10/04/18 00:00 96.9 83 23 125/64 (84) 98 10/04/18 00:00 Nasal Cannula 2.0 10/04/18 00:00 84 10/03/18 21:01 72 17 98 Facial 40 10/03/18 20:00 80 10/03/18 20:00 Nasal Cannula 2.0 10/03/18 20:00 98.1 85 30 150/66 (94) 98 10/03/18 20:00 2.0 10/03/18 19:43 Nasal Cannula 2.0 28 10/03/18 19:43 98 Nasal Cannula 2.0 28 10/03/18 16:00 88 10/03/18 16:00 Nasal Cannula 2.0 10/03/18 16:00 97.7 84 28 133/75 (94) 99 10/03/18 16:00 2.0 10/03/18 12:00 96.8 90 26 138/70 (92) 98 10/03/18 12:00 Nasal Cannula 2.0 10/03/18 12:00 2.0 10/03/18 12:00 87 10/03/18 10:34 87 22 98 Nasal Cannula 2.0 28 10/03/18 10:34 87 22 98 Nasal Cannula 2.0 28 10/03/18 08:13 Nasal Cannula 2.0 28 10/03/18 08:13 97 Nasal Cannula 2.0 28 10/03/18 08:00 Nasal Cannula 2.0 10/03/18 08:00 84 10/03/18 08:00 97.2 86 28 143/89 (107) 96 10/03/18 08:00 2.0 Intake and Output 10/03/18 10/04/18 19:00 07:00 Intake Total 985.000 ml 1195.00 ml Output Total 1150 ml 350 ml Balance -165.000 ml 845.00 ml Intake Oral 240 ml Free Water 50 ml IV Total 275.000 ml 330.00 ml Tube Feeding 660 ml 605 ml Other 20 ml Output Urine Total 1150 ml 350 ml # Bowel Movements 2 1 Objective General Appearance: no acute distress, awake, alert, female HEENT: normocephalic, atraumatic, anicteric, mucous membranes moist Respiratory/Chest: no respiratory distress, no accessory muscle use, decreased breath sounds, O2 via NC , pacemaker Cardiovascular: no JVD, irregularly irregular - A fib on tele , occas V paced Abdomen: normal bowel sounds, soft, non tender , obese Extremities: pedal pulses normal, trace edema BLE Neurologic/Psychiatric: w/chair bound , alert, responsive Musculoskeletal: atrophy BLE Laboratory Tests 10/04/18 03:15: White Blood Count 11.4H, Red Blood Count 4.04L, Hemoglobin 10.3L, Hematocrit 33.4L, Mean Corpuscular Volume 83, Mean Corpuscular Hemoglobin 25.4L, Mean Corpuscular Hemoglobin Concent 30.8L, Red Cell Distribution Width 18.9H, Platelet Count 212, Mean Platelet Volume 7.4, Neutrophils (%) (Auto) 83.9H, Lymphocytes (%) (Auto) 9.0L, Monocytes (%) (Auto) 4.9, Eosinophils (%) (Auto) 1.7, Basophils (%) (Auto) 0.5, Sodium Level 144, Potassium Level 3.6, Chloride Level 107, Carbon Dioxide Level 30, Anion Gap 7, Blood Urea Nitrogen 22H, Creatinine 0.5L, Estimat Glomerular Filtration Rate , Glucose Level 144H, Calcium Level 9.0, Phosphorus Level 4.9, Magnesium Level 2.0, Total Bilirubin 0.3, Aspartate Amino Transf (AST/SGOT) 10L, Alanine Aminotransferase (ALT/SGPT) 27, Alkaline Phosphatase 63, Total Protein 6.8, Albumin 2.6L, Globulin 4.2, Albumin/Globulin Ratio 0.6L, Vancomycin Level Trough 16.9H Current Medications Medications (Trade) Dose Ordered Sig/Ibrahima Route PRN Reason Start Time Stop Time Status Last Admin Dose Admin Acetaminophen (Tylenol) 650 mg Q4H PRN NG Mild Pain (Pain Scale 1-3) 10/01/18 08:45 10/30/18 23:44 10/03/18 21:57 Acetazolamide (Diamox) 500 mg TWICE A DAY NG 10/03/18 18:00 11/02/18 17:59 10/03/18 17:11 Albuterol/ Ipratropium (Albuterol/ Ipratropium) 3 ml Q4H PRN HHN Shortness of Breath 10/03/18 11:30 10/08/18 11:29 Apixaban (Eliquis) 5 mg BID NGT 10/01/18 09:00 10/19/18 17:59 10/03/18 17:11 Cefepime HCl 1 gm/ Dextrose 55 ml @ 110 mls/hr Q24H IVPB 10/01/18 01:00 10/06/18 00:59 10/04/18 01:16 Dextrose (Dextrose 50%) 25 ml Q30M PRN IV Hypoglycemia 09/30/18 23:00 10/17/18 06:59 Dextrose (Dextrose 50%) 50 ml Q30M PRN IV Hypoglycemia 09/30/18 23:00 10/17/18 06:59 Docusate Sodium (Colace) 100 mg TID NG 10/01/18 09:00 10/19/18 08:59 10/03/18 17:09 Folic Acid (Folate) 5 mg DAILY NG 10/01/18 09:00 10/18/18 09:59 10/03/18 09:00 Furosemide (Lasix) 40 mg DAILY IV 10/01/18 09:00 10/26/18 08:59 10/03/18 08:51 Lansoprazole (Prevacid) 30 mg BID NG 10/03/18 18:00 11/02/18 17:59 10/03/18 17:09 Ondansetron HCl (Zofran) 4 mg Q6H PRN IVP Nausea & Vomiting 09/30/18 23:45 10/30/18 23:44 Phenol/Menthol (Chloraseptic) 1 spray Q3H PRN ORAL THROAT PAIN 10/01/18 14:00 10/31/18 13:59 10/04/18 06:55 Polyethylene Glycol (Miralax) 17 gm DAILYPRN PRN NG Constipation 10/01/18 08:45 10/30/18 23:44 Potassium Chloride (K-Dur) 40 meq DAILY NGT 10/01/18 09:00 10/27/18 12:44 10/03/18 08:51 Risperidone (RisperDAL) 1 mg BEDTIME NG 10/01/18 21:00 10/17/18 20:59 10/03/18 21:26 Thiamine HCl (Vitamin B1) 100 mg DAILY NG 10/01/18 09:00 10/20/18 08:59 10/03/18 08:53 Vancomycin HCl (Vanco rx to dose) 1 ea DAILY PRN MISC Per rx protocol 10/01/18 09:00 10/25/18 13:14 Vancomycin HCl 750 mg/Sodium Chloride 275 ml @ 183.333 mls/hr Q12HR@0400,1600 IVPB 10/02/18 16:00 10/07/18 15:59 10/04/18 04:27 Jazzy Campuzano NP October 04, 2018 07:49
[2018-10-04 08:00] VITALS: BP 152/77
[2018-10-04] MEDS: Docusate 100mg/10ml Liq NG SCH ×3 (08:30→17:28)
[2018-10-04] MEDS: Thiamine 100mg tab NG SCH (08:31)
[2018-10-04] MEDS: Eliquis 5mg tablet NGT SCH ×2 (08:31→17:29)
--- NOTE | 2018-10-04 08:35 | NUR ---
RESPIRATORY NOTE: ABG results entered in system and reported to Makenna OVALLES.
--- NOTE | 2018-10-04 09:33 | NUR ---
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 ARF on Bi-pap VS: 143/81, P 98, T 97.9, RR 35, SpO2 98 on 4.0L NC FiO2 36 WBC 11.4, RBC 4.04, H&H 10.3/33.4 IS:CHLORASEPTIC 1Spray RISPERIDONE 1mg CEFEPIME HCI 55ml IV VANCOMYCIN 275ml IV LASIX 40mg IV K-DUR 40meq DIAMOX 500mg ELIQUIS 5mg SDU STATUS
[2018-10-04 12:00] VITALS: BP 143/73
--- NOTE | 2018-10-04 12:40 | General Progress Note ---
Assessment/Plan Problem List: (1) COPD (chronic obstructive pulmonary disease) ICD Codes: J44.9 - Chronic obstructive pulmonary disease, unspecified SNOMED: 09673933 Qualifiers: Qualified Codes: J44.9 - Chronic obstructive pulmonary disease, unspecified (2) Hyponatremia ICD Codes: E87.1 - Hyponatremia SNOMED: 14098069 (3) HTN (hypertension) ICD Codes: I10 - Hypertension SNOMED: 40512609 Assessment/Plan: failed swallow evaluation - NGT in place w/ TF running no longer on Prednisone - BP is stable electrolytes are normal I will sign off Subjective ROS Limited/Unobtainable: Yes Allergies: Coded Allergies: PIPERACILLIN (Unverified Allergy, Unknown, 05/21/18) tolerates cephalosporins TAZOBACTAM (Unverified Allergy, Unknown, 03/10/18) Subjective events noted failed swallow evaluation lethargic Objective Last 24 Hour Vital Signs Date Time Temp Pulse Resp B/P (MAP) Pulse Ox O2 Delivery O2 Flow Rate FiO2 10/04/18 12:00 97.5 95 22 143/73 (96) 98 10/04/18 12:00 Nasal Cannula 2.0 10/04/18 11:27 2.0 10/04/18 11:26 30 10/04/18 11:01 30 10/04/18 10:37 91 22 97 Facial 30 10/04/18 08:45 98 Nasal Cannula 2.0 28 10/04/18 08:45 Nasal Cannula 2.0 28 10/04/18 08:00 Nasal Cannula 2.0 10/04/18 08:00 96.8 95 24 152/77 (102) 96 10/04/18 07:57 91 10/04/18 04:00 97.3 92 26 145/68 (93) 97 10/04/18 04:00 2.0 10/04/18 04:00 Nasal Cannula 2.0 10/04/18 03:39 88 10/04/18 00:00 96.9 83 23 125/64 (84) 98 10/04/18 00:00 Nasal Cannula 2.0 10/04/18 00:00 84 10/03/18 21:01 72 17 98 Facial 40 10/03/18 20:00 80 10/03/18 20:00 Nasal Cannula 2.0 10/03/18 20:00 98.1 85 30 150/66 (94) 98 10/03/18 20:00 2.0 10/03/18 19:43 Nasal Cannula 2.0 28 10/03/18 19:43 98 Nasal Cannula 2.0 28 10/03/18 16:00 88 10/03/18 16:00 Nasal Cannula 2.0 10/03/18 16:00 97.7 84 28 133/75 (94) 99 10/03/18 16:00 2.0 Intake and Output 10/03/18 10/04/18 19:00 07:00 Intake Total 985.000 ml 1195.00 ml Output Total 1150 ml 350 ml Balance -165.000 ml 845.00 ml Intake Oral 240 ml Free Water 50 ml IV Total 275.000 ml 330.00 ml Tube Feeding 660 ml 605 ml Other 20 ml Output Urine Total 1150 ml 350 ml # Bowel Movements 2 1 Laboratory Tests 10/04/18 03:15: White Blood Count 11.4H, Red Blood Count 4.04L, Hemoglobin 10.3L, Hematocrit 33.4L, Mean Corpuscular Volume 83, Mean Corpuscular Hemoglobin 25.4L, Mean Corpuscular Hemoglobin Concent 30.8L, Red Cell Distribution Width 18.9H, Platelet Count 212, Mean Platelet Volume 7.4, Neutrophils (%) (Auto) 83.9H, Lymphocytes (%) (Auto) 9.0L, Monocytes (%) (Auto) 4.9, Eosinophils (%) (Auto) 1.7, Basophils (%) (Auto) 0.5, Sodium Level 144, Potassium Level 3.6, Chloride Level 107, Carbon Dioxide Level 30, Anion Gap 7, Blood Urea Nitrogen 22H, Creatinine 0.5L, Estimat Glomerular Filtration Rate , Glucose Level 144H, Calcium Level 9.0, Phosphorus Level 4.9, Magnesium Level 2.0, Total Bilirubin 0.3, Aspartate Amino Transf (AST/SGOT) 10L, Alanine Aminotransferase (ALT/SGPT) 27, Alkaline Phosphatase 63, Total Protein 6.8, Albumin 2.6L, Globulin 4.2, Albumin/Globulin Ratio 0.6L, Vancomycin Level Trough 16.9H 10/04/18 08:19: Arterial Blood pH 7.263L, Arterial Blood Partial Pressure CO2 57.4*H, Arterial Blood Partial Pressure O2 95.4, Arterial Blood HCO3 25.4, Arterial Blood Oxygen Saturation 96.1, Arterial Blood Base Excess -2.3L, Ian Test Positive Height (Feet): 5 Weight (Pounds): 179 General Appearance: no apparent distress, lethargic Neck: normal alignment Cardiovascular: normal rate Respiratory/Chest: decreased breath sounds Abdomen: normal bowel sounds Pelvis: normal external exam Edema: 1+ Arm (L), 1+ Arm (R), 1+ Leg (L), 1+ Leg (R), 1+ Pedal (L), 1+ Pedal ( R), 1+ Generalized Objective Current Medications Medications (Trade) Dose Ordered Sig/Ibrahima Route PRN Reason Start Time Stop Time Status Last Admin Dose Admin Acetaminophen (Tylenol) 650 mg Q4H PRN NG Mild Pain (Pain Scale 1-3) 10/01/18 08:45 10/30/18 23:44 10/03/18 21:57 Acetazolamide (Diamox) 500 mg TWICE A DAY NG 10/03/18 18:00 11/02/18 17:59 10/04/18 08:30 Albuterol/ Ipratropium (Albuterol/ Ipratropium) 3 ml Q4H PRN HHN Shortness of Breath 10/03/18 11:30 10/08/18 11:29 Apixaban (Eliquis) 5 mg BID NGT 10/01/18 09:00 10/19/18 17:59 10/04/18 08:31 Cefepime HCl 1 gm/ Dextrose 55 ml @ 110 mls/hr Q24H IVPB 10/01/18 01:00 10/06/18 00:59 10/04/18 01:16 Dextrose (Dextrose 50%) 25 ml Q30M PRN IV Hypoglycemia 09/30/18 23:00 10/17/18 06:59 Dextrose (Dextrose 50%) 50 ml Q30M PRN IV Hypoglycemia 09/30/18 23:00 10/17/18 06:59 Docusate Sodium (Colace) 100 mg TID NG 10/01/18 09:00 10/19/18 08:59 10/04/18 08:30 Folic Acid (Folate) 5 mg DAILY NG 10/01/18 09:00 10/18/18 09:59 10/04/18 08:31 Furosemide (Lasix) 40 mg DAILY IV 10/01/18 09:00 10/26/18 08:59 10/04/18 08:31 Lansoprazole (Prevacid) 30 mg BID NG 10/03/18 18:00 11/02/18 17:59 10/04/18 08:31 Ondansetron HCl (Zofran) 4 mg Q6H PRN IVP Nausea & Vomiting 09/30/18 23:45 10/30/18 23:44 Phenol/Menthol (Chloraseptic) 1 spray Q3H PRN ORAL THROAT PAIN 10/01/18 14:00 10/31/18 13:59 10/04/18 06:55 Polyethylene Glycol (Miralax) 17 gm DAILYPRN PRN NG Constipation 10/01/18 08:45 10/30/18 23:44 Potassium Chloride (K-Dur) 40 meq DAILY NGT 10/01/18 09:00 10/27/18 12:44 10/04/18 08:30 Risperidone (RisperDAL) 1 mg BEDTIME NG 10/01/18 21:00 10/17/18 20:59 10/03/18 21:26 Thiamine HCl (Vitamin B1) 100 mg DAILY NG 10/01/18 09:00 10/20/18 08:59 10/04/18 08:31 Vancomycin HCl (Vanco rx to dose) 1 ea DAILY PRN MISC Per rx protocol 10/01/18 09:00 10/25/18 13:14 Vancomycin HCl 750 mg/Sodium Chloride 275 ml @ 183.333 mls/hr Q12HR@0400,1600 IVPB 10/02/18 16:00 10/07/18 15:59 10/04/18 04:27 Daniel Little MD October 04, 2018 12:40
--- NOTE | 2018-10-04 15:30 | Internal Med Progress Note ---
Subjective Date of Service: October 04, 2018 Physician Name Juan Dutta Attending Physician Yonathan Mendoza MD Current Medications Medications (Trade) Dose Ordered Sig/Ibrahima Route PRN Reason Start Time Stop Time Status Last Admin Dose Admin Acetaminophen (Tylenol) 650 mg Q4H PRN NG Mild Pain (Pain Scale 1-3) 10/01/18 08:45 10/30/18 23:44 10/03/18 21:57 Acetazolamide (Diamox) 500 mg TWICE A DAY NG 10/03/18 18:00 11/02/18 17:59 10/04/18 08:30 Albuterol/ Ipratropium (Albuterol/ Ipratropium) 3 ml Q4H PRN HHN Shortness of Breath 10/03/18 11:30 10/08/18 11:29 Apixaban (Eliquis) 5 mg BID NGT 10/01/18 09:00 10/19/18 17:59 10/04/18 08:31 Cefepime HCl 1 gm/ Dextrose 55 ml @ 110 mls/hr Q24H IVPB 10/01/18 01:00 10/06/18 00:59 10/04/18 01:16 Dextrose (Dextrose 50%) 25 ml Q30M PRN IV Hypoglycemia 09/30/18 23:00 10/17/18 06:59 Dextrose (Dextrose 50%) 50 ml Q30M PRN IV Hypoglycemia 09/30/18 23:00 10/17/18 06:59 Docusate Sodium (Colace) 100 mg TID NG 10/01/18 09:00 10/19/18 08:59 10/04/18 12:51 Folic Acid (Folate) 5 mg DAILY NG 10/01/18 09:00 10/18/18 09:59 10/04/18 08:31 Furosemide (Lasix) 40 mg DAILY IV 10/01/18 09:00 10/26/18 08:59 10/04/18 08:31 Lansoprazole (Prevacid) 30 mg BID NG 10/03/18 18:00 11/02/18 17:59 10/04/18 08:31 Ondansetron HCl (Zofran) 4 mg Q6H PRN IVP Nausea & Vomiting 09/30/18 23:45 10/30/18 23:44 Phenol/Menthol (Chloraseptic) 1 spray Q3H PRN ORAL THROAT PAIN 10/01/18 14:00 10/31/18 13:59 10/04/18 06:55 Polyethylene Glycol (Miralax) 17 gm DAILYPRN PRN NG Constipation 10/01/18 08:45 10/30/18 23:44 Potassium Chloride (K-Dur) 40 meq DAILY NGT 10/01/18 09:00 10/27/18 12:44 10/04/18 08:30 Risperidone (RisperDAL) 1 mg BEDTIME NG 10/01/18 21:00 10/17/18 20:59 10/03/18 21:26 Thiamine HCl (Vitamin B1) 100 mg DAILY NG 10/01/18 09:00 10/20/18 08:59 10/04/18 08:31 Vancomycin HCl (Vanco rx to dose) 1 ea DAILY PRN MISC Per rx protocol 10/01/18 09:00 10/25/18 13:14 Vancomycin HCl 750 mg/Sodium Chloride 275 ml @ 183.333 mls/hr Q12HR@0400,1600 IVPB 10/02/18 16:00 10/07/18 15:59 10/04/18 15:03 Allergies: Coded Allergies: PIPERACILLIN (Unverified Allergy, Unknown, 05/21/18) tolerates cephalosporins TAZOBACTAM (Unverified Allergy, Unknown, 03/10/18) ROS Limited/Unobtainable: No Constitutional: Reports: no symptoms HEENT: Reports: no symptoms Cardiovascular: Reports: no symptoms Respiratory: Reports: shortness of breath Gastrointestinal/Abdominal: Reports: no symptoms Genitourinary: Reports: no symptoms Neurologic/Psychiatric: Reports: no symptoms Subjective 77 YO F admitted for respiratory distress. Now left lung opacification. Extubated 09/28/18. Cover for Int Jose A-DR Mendoza. CHRISTOPHER. Objective Last Vital Signs Date Time Temp Pulse Resp B/P (MAP) Pulse Ox O2 Delivery O2 Flow Rate FiO2 10/04/18 14:30 93 35 96 Facial 30 10/04/18 12:00 97.5 143/73 (96) 10/04/18 12:00 2.0 Laboratory Tests Test 10/04/18 03:15 10/04/18 08:19 White Blood Count 11.4 K/UL (4.8-10.8) H Red Blood Count 4.04 M/UL (4.20-5.40) L Hemoglobin 10.3 G/DL (12.0-16.0) L Hematocrit 33.4 % (37.0-47.0) L Mean Corpuscular Volume 83 FL (80-99) Mean Corpuscular Hemoglobin 25.4 PG (27.0-31.0) L Mean Corpuscular Hemoglobin Concent 30.8 G/DL (32.0-36.0) L Red Cell Distribution Width 18.9 % (11.6-14.8) H Platelet Count 212 K/UL (150-450) Mean Platelet Volume 7.4 FL (6.5-10.1) Neutrophils (%) (Auto) 83.9 % (45.0-75.0) H Lymphocytes (%) (Auto) 9.0 % (20.0-45.0) L Monocytes (%) (Auto) 4.9 % (1.0-10.0) Eosinophils (%) (Auto) 1.7 % (0.0-3.0) Basophils (%) (Auto) 0.5 % (0.0-2.0) Sodium Level 144 MMOL/L (136-145) Potassium Level 3.6 MMOL/L (3.5-5.1) Chloride Level 107 MMOL/L (98-107) Carbon Dioxide Level 30 MMOL/L (21-32) Anion Gap 7 mmol/L (5-15) Blood Urea Nitrogen 22 mg/dL (7-18) H Creatinine 0.5 MG/DL (0.55-1.30) L Estimat Glomerular Filtration Rate mL/min (>60) Glucose Level 144 MG/DL (74-106) H Calcium Level 9.0 MG/DL (8.5-10.1) Phosphorus Level 4.9 MG/DL (2.5-4.9) Magnesium Level 2.0 MG/DL (1.8-2.4) Total Bilirubin 0.3 MG/DL (0.2-1.0) Aspartate Amino Transf (AST/SGOT) 10 U/L (15-37) L Alanine Aminotransferase (ALT/SGPT) 27 U/L (12-78) Alkaline Phosphatase 63 U/L (46-116) Total Protein 6.8 G/DL (6.4-8.2) Albumin 2.6 G/DL (3.4-5.0) L Globulin 4.2 g/dL Albumin/Globulin Ratio 0.6 (1.0-2.7) L Vancomycin Level Trough 16.9 ug/mL (5.0-12.0) H Arterial Blood pH 7.263 (7.350-7.450) Arterial Blood Partial Pressure CO2 57.4 mmHg (35.0-45.0) *H Arterial Blood Partial Pressure O2 95.4 mmHg (75.0-100.0) Arterial Blood HCO3 25.4 mmol/L (22.0-26.0) Arterial Blood Oxygen Saturation 96.1 % (95-100) Arterial Blood Base Excess -2.3 (-2-2) L Ian Test Positive Intake and Output 10/03/18 10/04/18 19:00 07:00 Intake Total 985.000 ml 1195.00 ml Output Total 1150 ml 350 ml Balance -165.000 ml 845.00 ml Intake Oral 240 ml Free Water 50 ml IV Total 275.000 ml 330.00 ml Tube Feeding 660 ml 605 ml Other 20 ml Output Urine Total 1150 ml 350 ml # Bowel Movements 2 1 Objective PHYSICAL EXAMINATION: GENERAL: The patient is a well-developed and well-nourished white female, who is in moderate respiratory distress. HEENT: Eyes, pupils are equal and responsive to light and accommodation. Extraocular movements are intact. NECK: Supple without lymphadenopathy. CHEST: Nasal Canula; Few rales in bilateral bases, otherwise, Lungs are clear to auscultation bilaterally without wheezes CARDIOVASCULAR: Regular rhythm and rate. S1 and S2 normal without murmurs, rubs, or gallops. ABDOMEN: Soft, nontender, and nondistended. Positive bowel sounds. No evidence of hepatosplenomegaly. Currently, no rebound or guarding noted. EXTREMITIES: Negative for clubbing, cyanosis, or edema. RECTAL/GENITAL: Refused. NEUROLOGIC: Cranial nerves II through XII are grossly intact without focal deficits. Motor strength is 5/5 bilaterally. Deep tendon reflexes are 2+ plantar. Assessment/Plan Assessment/Plan ASSESSMENT: This is a 77-year-old white female with: 1. Shortness of breath. 2. Hypoxia. 3. Acute on chronic congestive heart failure. 4. Atrial flutter. 5. Hyponatremia. 6. Chronic obstructive pulmonary disease. 7. Coronary artery disease. 8. Hypertension. 9. Seizure disorder. 10. Paranoid schizophrenia. 11. Intraventricular pacemaker 12. left lung opacification-collapse per CT TREATMENT: 1. Shortness of breath/congestive heart failure. Extubated 09/28/[address] Sierra[address] Cardiologyconsultation has been obtained with Dr. Milian. The patient is currently receiving intravenous Lasix. We will follow recommendation of Cardiology. BNP is elevated at over greater than 5000. An echocardiogram is pending. 2. Atrial flutter. Continue Eliquis as above. 3. Hyponatremia. The patient is currently receiving intravenous fluids. 4. Chronic obstructive pulmonary disease. Continue DuoNeb nebulized as above. The patient was initially placed on BiPAP in the emergency room. A Pulmonary consultation has been obtained with Dr. Mendel Sierra. 5. Hypertension. Continue Lasix as above. 6. Seizure disorder. The patient is currently off antiseizure medication. 7. Paranoid schizophrenia. Continue Risperdal as above. 8. antibiotic=cefepime and Juan Gamboa MD October 04, 2018 15:30
[2018-10-04 16:00] VITALS: BP 144/68
--- NOTE | 2018-10-04 16:36 | Nephrology Progress Note ---
Assessment/Plan Problem List: (1) Respiratory failure, acute (2) Hyponatremia (3) Seizure disorder (4) Acute diastolic CHF (congestive heart failure) (5) COPD (chronic obstructive pulmonary disease) (6) Pacemaker Assessment Now extubated HypoNatremia ? Etiology: depletional / Diuretics / SIADH ... bronchoscopy for left lung collapse Acute respiratory failure on BIPAP- COPD Encephalopathy due to high CO2 Pacemaker UTI Low MCV Anemia Hypoalbuminemia EjFx 55% last admission h/o Atfib Plan resume diamox PCo2 rising K supplement as needed now extubated since 09/28 López PRN lasix IV iron monitor lytes Anemia clinton per orders Objective Objective Last 24 Hour Vital Signs Date Time Temp Pulse Resp B/P (MAP) Pulse Ox O2 Delivery O2 Flow Rate FiO2 10/04/18 16:00 97.9 91 24 144/68 (93) 94 10/04/18 16:00 Nasal Cannula 2.0 10/04/18 15:35 2.0 10/04/18 15:34 30 10/04/18 15:26 84 10/04/18 14:30 93 35 96 Facial 30 10/04/18 14:30 30 10/04/18 12:00 97.5 95 22 143/73 (96) 98 10/04/18 12:00 Nasal Cannula 2.0 10/04/18 11:55 92 10/04/18 11:27 2.0 10/04/18 11:26 30 10/04/18 11:01 30 10/04/18 10:37 91 22 97 Facial 30 10/04/18 08:45 98 Nasal Cannula 2.0 28 10/04/18 08:45 Nasal Cannula 2.0 28 10/04/18 08:00 Nasal Cannula 2.0 10/04/18 08:00 96.8 95 24 152/77 (102) 96 10/04/18 07:57 91 10/04/18 04:00 97.3 92 26 145/68 (93) 97 10/04/18 04:00 2.0 10/04/18 04:00 Nasal Cannula 2.0 10/04/18 03:39 88 10/04/18 00:00 96.9 83 23 125/64 (84) 98 10/04/18 00:00 Nasal Cannula 2.0 10/04/18 00:00 84 10/03/18 21:01 72 17 98 Facial 40 10/03/18 20:00 80 10/03/18 20:00 Nasal Cannula 2.0 10/03/18 20:00 98.1 85 30 150/66 (94) 98 10/03/18 20:00 2.0 10/03/18 19:43 Nasal Cannula 2.0 28 10/03/18 19:43 98 Nasal Cannula 2.0 28 Intake and Output 10/03/18 10/04/18 19:00 07:00 Intake Total 985.000 ml 1195.00 ml Output Total 1150 ml 350 ml Balance -165.000 ml 845.00 ml Intake Oral 240 ml Free Water 50 ml IV Total 275.000 ml 330.00 ml Tube Feeding 660 ml 605 ml Other 20 ml Output Urine Total 1150 ml 350 ml # Bowel Movements 2 1 Laboratory Tests 10/04/18 03:15: White Blood Count 11.4H, Red Blood Count 4.04L, Hemoglobin 10.3L, Hematocrit 33.4L, Mean Corpuscular Volume 83, Mean Corpuscular Hemoglobin 25.4L, Mean Corpuscular Hemoglobin Concent 30.8L, Red Cell Distribution Width 18.9H, Platelet Count 212, Mean Platelet Volume 7.4, Neutrophils (%) (Auto) 83.9H, Lymphocytes (%) (Auto) 9.0L, Monocytes (%) (Auto) 4.9, Eosinophils (%) (Auto) 1.7, Basophils (%) (Auto) 0.5, Sodium Level 144, Potassium Level 3.6, Chloride Level 107, Carbon Dioxide Level 30, Anion Gap 7, Blood Urea Nitrogen 22H, Creatinine 0.5L, Estimat Glomerular Filtration Rate , Glucose Level 144H, Calcium Level 9.0, Phosphorus Level 4.9, Magnesium Level 2.0, Total Bilirubin 0.3, Aspartate Amino Transf (AST/SGOT) 10L, Alanine Aminotransferase (ALT/SGPT) 27, Alkaline Phosphatase 63, Total Protein 6.8, Albumin 2.6L, Globulin 4.2, Albumin/Globulin Ratio 0.6L, Vancomycin Level Trough 16.9H 10/04/18 08:19: Arterial Blood pH 7.263L, Arterial Blood Partial Pressure CO2 57.4*H, Arterial Blood Partial Pressure O2 95.4, Arterial Blood HCO3 25.4, Arterial Blood Oxygen Saturation 96.1, Arterial Blood Base Excess -2.3L, Ian Test Positive Height (Feet): 5 Weight (Pounds): 179 EENT: other - NGT Cardiovascular: normal rate Respiratory/Chest: decreased breath sounds Abdomen: distended Objective no change Danilo Huber MD October 04, 2018 16:36
--- NOTE | 2018-10-04 17:26 | Cardiac Electrophysiology PN ---
Assessment/Plan Assessment/Plan 1. Status post leadless intracardiac Medtronic pacer with Nl Fx 2. Chronic atrial fibrillation, stable off any antiarrhythmics. On Eliquis 5 mg bid. 3. Severe COPD. On Solu-Medrol. 4. Diastolic congestive heart failure. 5. Diabetes. 6. S/P resp failure for Left lung collapse. Extubated 7. Dysphagia, failed swallow eval . Video swallow pending tomorrow DW RN Subjective Subjective In atrial fib with intermittent V pacing. No CP Objective Last 24 Hour Vital Signs Date Time Temp Pulse Resp B/P (MAP) Pulse Ox O2 Delivery O2 Flow Rate FiO2 10/04/18 16:00 97.9 91 24 144/68 (93) 94 10/04/18 16:00 Nasal Cannula 2.0 10/04/18 15:35 2.0 10/04/18 15:34 30 10/04/18 15:26 84 10/04/18 14:30 93 35 96 Facial 30 10/04/18 14:30 30 10/04/18 12:00 97.5 95 22 143/73 (96) 98 10/04/18 12:00 Nasal Cannula 2.0 10/04/18 11:55 92 10/04/18 11:27 2.0 10/04/18 11:26 30 10/04/18 11:01 30 10/04/18 10:37 91 22 97 Facial 30 10/04/18 08:45 98 Nasal Cannula 2.0 28 10/04/18 08:45 Nasal Cannula 2.0 28 10/04/18 08:00 Nasal Cannula 2.0 10/04/18 08:00 96.8 95 24 152/77 (102) 96 10/04/18 07:57 91 10/04/18 04:00 97.3 92 26 145/68 (93) 97 10/04/18 04:00 2.0 10/04/18 04:00 Nasal Cannula 2.0 10/04/18 03:39 88 10/04/18 00:00 96.9 83 23 125/64 (84) 98 10/04/18 00:00 Nasal Cannula 2.0 10/04/18 00:00 84 10/03/18 21:01 72 17 98 Facial 40 10/03/18 20:00 80 10/03/18 20:00 Nasal Cannula 2.0 10/03/18 20:00 98.1 85 30 150/66 (94) 98 10/03/18 20:00 2.0 10/03/18 19:43 Nasal Cannula 2.0 28 10/03/18 19:43 98 Nasal Cannula 2.0 28 Intake and Output 10/03/18 10/04/18 19:00 07:00 Intake Total 985.000 ml 1195.00 ml Output Total 1150 ml 350 ml Balance -165.000 ml 845.00 ml Intake Oral 240 ml Free Water 50 ml IV Total 275.000 ml 330.00 ml Tube Feeding 660 ml 605 ml Other 20 ml Output Urine Total 1150 ml 350 ml # Bowel Movements 2 1 Laboratory Tests Test 10/04/18 03:15 10/04/18 08:19 White Blood Count 11.4 K/UL (4.8-10.8) H Red Blood Count 4.04 M/UL (4.20-5.40) L Hemoglobin 10.3 G/DL (12.0-16.0) L Hematocrit 33.4 % (37.0-47.0) L Mean Corpuscular Volume 83 FL (80-99) Mean Corpuscular Hemoglobin 25.4 PG (27.0-31.0) L Mean Corpuscular Hemoglobin Concent 30.8 G/DL (32.0-36.0) L Red Cell Distribution Width 18.9 % (11.6-14.8) H Platelet Count 212 K/UL (150-450) Mean Platelet Volume 7.4 FL (6.5-10.1) Neutrophils (%) (Auto) 83.9 % (45.0-75.0) H Lymphocytes (%) (Auto) 9.0 % (20.0-45.0) L Monocytes (%) (Auto) 4.9 % (1.0-10.0) Eosinophils (%) (Auto) 1.7 % (0.0-3.0) Basophils (%) (Auto) 0.5 % (0.0-2.0) Sodium Level 144 MMOL/L (136-145) Potassium Level 3.6 MMOL/L (3.5-5.1) Chloride Level 107 MMOL/L (98-107) Carbon Dioxide Level 30 MMOL/L (21-32) Anion Gap 7 mmol/L (5-15) Blood Urea Nitrogen 22 mg/dL (7-18) H Creatinine 0.5 MG/DL (0.55-1.30) L Estimat Glomerular Filtration Rate mL/min (>60) Glucose Level 144 MG/DL (74-106) H Calcium Level 9.0 MG/DL (8.5-10.1) Phosphorus Level 4.9 MG/DL (2.5-4.9) Magnesium Level 2.0 MG/DL (1.8-2.4) Total Bilirubin 0.3 MG/DL (0.2-1.0) Aspartate Amino Transf (AST/SGOT) 10 U/L (15-37) L Alanine Aminotransferase (ALT/SGPT) 27 U/L (12-78) Alkaline Phosphatase 63 U/L (46-116) Total Protein 6.8 G/DL (6.4-8.2) Albumin 2.6 G/DL (3.4-5.0) L Globulin 4.2 g/dL Albumin/Globulin Ratio 0.6 (1.0-2.7) L Vancomycin Level Trough 16.9 ug/mL (5.0-12.0) H Arterial Blood pH 7.263 (7.350-7.450) Arterial Blood Partial Pressure CO2 57.4 mmHg (35.0-45.0) *H Arterial Blood Partial Pressure O2 95.4 mmHg (75.0-100.0) Arterial Blood HCO3 25.4 mmol/L (22.0-26.0) Arterial Blood Oxygen Saturation 96.1 % (95-100) Arterial Blood Base Excess -2.3 (-2-2) L Ian Test Positive Objective HEAD AND NECK: Mild JVD.NG tube is in LUNGS: Coarse rhonchi bilaterally. Decrease breath sounds on the left CARDIOVASCULAR: Irregular S1 and S2 with no gallop. ABDOMEN: Soft. EXTREMITIES: No edema. Yohan Milian MD October 04, 2018 17:26
--- NOTE | 2018-10-04 19:15 | NUR ---
HAND-OFF: Report given to Markie Jamison RN.
--- NOTE | 2018-10-04 19:16 | NUR ---
NURSE NOTES: Received patient from Lucrecia Ramsey RN.Patient is awake and tolerating bi-pap at 15/5 Fio2 of 30% Saturating at 97%. No signs of acute distress at this time. Bed at lowest position, bed rails X3 up and call light in reach. Will continue to monitor.
[2018-10-04 20:00] VITALS: BP 143/81
--- NOTE | 2018-10-04 20:43 | NUR ---
RESPIRATORY NOTE: PT RECEIVED ON ROOM AIR. SPO2 89%. PT REFUSED BIPAP. RISK AND BENEFITS WERE EXPLAINED TO PT BY RT AND BY RN JERMAIN HARRIS. PT CONTINUES TO REFUSE BIPAP. PLACED PT ON 4LPM NASAL CANNULA UNTIL SPO2 IMPROVES. CURRENT VS ARE SPO2 99%, HR 98, RR 35 BPM. DIMINISHED BREATH SOUNDS. WILL CONTINUE TO MONITOR PT.
--- NOTE | 2018-10-04 20:44 | NUR ---
NURSE NOTES: Patient refused Bi-Pap. RT Radha Mcdaniel removed Bi-Pap and patient's O2 saturation is 97 with 4L NC. No signs of acute distress. Will continue to monitor.
--- NOTE | 2018-10-04 23:22 | NUR ---
NURSE NOTES: Patient is requesting to be placed on Bi-Pap. RT Radha Mcdaniel placed patient back on Bi-Pap with prescribed settings. Patient saturating at 97%. Patient tolerating tx well.. Will continue to monitor.
--- NOTE | 2018-10-04 23:34 | NUR ---
NURSE NOTES: Patient refused Bi-Pap. RT Radha Mcdaniel removed Bipap and placed patient on 3L NC with an O2 saturation of 99%. No signs of acute distress at this time. Charge Nurse Francine notified. Will continue to monitor.
[2018-10-05 00:40] VITALS: BP 143/63
[2018-10-05] MEDS: Cefepime HCl 1 GM in D5W 55 ML IVPB SCH (01:22)
[2018-10-05] MEDS: Vancomycin 750mg/NS 275ml IVPB SCH ×4 (03:33→15:12)
[2018-10-05 04:00] VITALS: BP 132/55
[2018-10-05 05:02] LABS: BASOPHILS % (AUTO) 1.6 % (0.0-2.0); EOSINOPHILS % (AUTO) 1.3 % (0.0-3.0); HEMATOCRIT 32.8 % (37.0-47.0); HEMOGLOBIN 10.2 G/DL (12.0-16.0); LYMPHOCYTES % (AUTO) 7.8 % (20.0-45.0); MEAN CORPUSCULAR VOLUME 83 FL (80-99); MONOCYTES % (AUTO) 6.6 % (1.0-10.0); NEUTROPHILS % (AUTO) 82.7 % (45.0-75.0); PLATELET COUNT 194 K/UL (150-450); RED BLOOD COUNT 3.96 M/UL (4.20-5.40); RED CELL DISTRIBUTION WIDTH 18.9 % (11.6-14.8); WHITE BLOOD COUNT 11.3 K/UL (4.8-10.8)
[2018-10-05 05:17] LABS: ANION GAP 6 mmol/L (5-15); BLOOD UREA NITROGEN 19 mg/dL (7-18); CALCIUM 8.7 MG/DL (8.5-10.1); CARBON DIOXIDE 28 MMOL/L (21-32); CHLORIDE 107 MMOL/L (98-107); CREATININE 0.4 MG/DL (0.55-1.30); POTASSIUM 3.8 MMOL/L (3.5-5.1); SODIUM 141 MMOL/L (136-145)
--- NOTE | 2018-10-05 05:17 | NUR ---
RESPIRATORY NOTE: PT REMAINED STABLE ON 3LPM N/C. PT CONTINUED TO REFUSE BIPAP MASK THROUGHOUT THE THE NIGHT. CHARLETTE HARRIS IS AWARE. VS WNL.
--- NOTE | 2018-10-05 07:08 | NUR ---
NURSE NOTES: Received report from CHARLETTE Rice. Patient is resting in bed, in stable condition. No s/sx of SOB, breathing is even and unlabored. Observed no presence of pain or discomfort. Patient noted with moments of confusion, noted to yell sporadically. Reorient to reality. Bed is in lowest position, brakes engaged. Call light is kept within easy reach. Will continue to monitor patient.
--- NOTE | 2018-10-05 07:10 | NUR ---
HAND-OFF: Report given to Jah OVALLES.
--- NOTE | 2018-10-05 07:55 | NUR ---
NURSE NOTES: Contacted Dr. Milian and informed physician that patient may have video swallow evaluation performed today. Informed MD that patient has been atrial fibrillation controlled with heart rate of 93 bpm. No c/o SOB, breathing is even and unlabored. Charge nurse made aware. Order entered, noted, and carried out. Will continue to monitor patient.
[2018-10-05 08:00] VITALS: BP 145/73
[2018-10-05] MEDS: Docusate 100mg/10ml Liq NG SCH ×3 (08:27→17:18)
[2018-10-05] MEDS: Eliquis 5mg tablet NGT SCH (08:29)
[2018-10-05] MEDS: Thiamine 100mg tab NG SCH (08:29)
--- NOTE | 2018-10-05 09:10 | NUR ---
NURSE NOTES: Contacted and informed Dr. Sierra of new arterial blood gas results: pH 7.2, pCO2 71.3. Dr. Sierra acknowledged, ordered to placed pt on BiPAP now. Pt on BiPAP, SpO2 94%, pt A&O x2-3 with moments of confusion, able to follow simple commands. Orders entered, noted, and carried out. Will continue to monitor patient.
--- NOTE | 2018-10-05 09:40 | NUR ---
RADIOLOGY DEPT., CHEST X-RAY DONE.-P.DYE
[2018-10-05] MEDS ORDERED: NS 275ml ONE (09:46)
[2018-10-05] MEDS ORDERED: Tubing IV Secondary IV ONE (09:46)
[2018-10-05 10:07] LABS: PHOSPHORUS 4.2 MG/DL (2.5-4.9)
--- NOTE | 2018-10-05 10:45 | Nephrology Progress Note ---
Assessment/Plan Problem List: (1) Respiratory failure, acute Assessment: Co2 Retainer (2) Hyponatremia (3) Seizure disorder (4) Acute diastolic CHF (congestive heart failure) (5) COPD (chronic obstructive pulmonary disease) (6) Pacemaker Assessment Now extubated HypoNatremia ? Etiology: depletional / Diuretics / SIADH ... bronchoscopy for left lung collapse Acute respiratory failure on BIPAP- COPD Encephalopathy due to high CO2 Pacemaker UTI Low MCV Anemia Hypoalbuminemia EjFx 55% last admission h/o Atfib Plan resume diamox PCo2 rising K supplement as needed now extubated since 09/28 López PRN lasix IV iron monitor lytes Anemia clinton per orders Subjective ROS Limited/Unobtainable: No Constitutional: Reports: malaise, weakness Objective Objective Last 24 Hour Vital Signs Date Time Temp Pulse Resp B/P (MAP) Pulse Ox O2 Delivery O2 Flow Rate FiO2 10/05/18 08:00 Nasal Cannula 3.0 10/05/18 08:00 88 10/05/18 08:00 97.7 98 22 145/73 (97) 97 10/05/18 07:01 98 Nasal Cannula 4.0 36 10/05/18 07:01 Nasal Cannula 4.0 36 10/05/18 05:17 86 31 99 10/05/18 04:00 Nasal Cannula 3.0 10/05/18 04:00 97.8 92 25 132/55 (80) 100 10/05/18 03:31 88 10/05/18 02:59 82 28 98 10/05/18 00:58 90 30 98 10/05/18 00:40 98.4 80 28 143/63 (89) 100 10/05/18 00:00 Nasal Cannula 3.0 10/04/18 23:34 90 30 98 10/04/18 23:26 93 10/04/18 23:23 98 33 97 Facial 30 10/04/18 20:53 95 30 100 10/04/18 20:43 Nasal Cannula 4.0 36 10/04/18 20:43 98 Nasal Cannula 4.0 36 10/04/18 20:43 98 35 99 10/04/18 20:00 97.9 90 26 143/81 (101) 100 10/04/18 20:00 Bi-pap 10/04/18 19:39 91 10/04/18 17:45 30 10/04/18 17:16 90 31 98 Facial 30 10/04/18 16:00 97.9 91 24 144/68 (93) 94 10/04/18 16:00 Nasal Cannula 2.0 10/04/18 15:35 2.0 10/04/18 15:34 30 10/04/18 15:26 84 10/04/18 14:30 93 35 96 Facial 30 10/04/18 14:30 30 10/04/18 12:00 97.5 95 22 143/73 (96) 98 10/04/18 12:00 Nasal Cannula 2.0 10/04/18 11:55 92 10/04/18 11:27 2.0 10/04/18 11:26 30 10/04/18 11:01 30 Intake and Output 10/04/18 10/05/18 19:00 07:00 Intake Total 655.00 ml 1026.666 ml Output Total 1000 ml 150 ml Balance -345.00 ml 876.666 ml IV Total 275.00 ml 421.666 ml Tube Feeding 220 ml 605 ml Other 160 ml Output Urine Total 1000 ml 150 ml # Bowel Movements 2 2 Laboratory Tests 10/05/18 03:25: White Blood Count 11.3H, Red Blood Count 3.96L, Hemoglobin 10.2L, Hematocrit 32.8L, Mean Corpuscular Volume 83, Mean Corpuscular Hemoglobin 25.8L, Mean Corpuscular Hemoglobin Concent 31.2L, Red Cell Distribution Width 18.9H, Platelet Count 194, Mean Platelet Volume 7.8, Neutrophils (%) (Auto) 82.7H, Lymphocytes (%) (Auto) 7.8L, Monocytes (%) (Auto) 6.6, Eosinophils (%) (Auto) 1.3, Basophils (%) (Auto) 1.6, Sodium Level 141, Potassium Level 3.8, Chloride Level 107, Carbon Dioxide Level 28, Anion Gap 6, Blood Urea Nitrogen 19H, Creatinine 0.4L, Estimat Glomerular Filtration Rate , Glucose Level 139H, Calcium Level 8.7, Phosphorus Level 4.2, Magnesium Level 2.1 10/05/18 08:10: Arterial Blood pH 7.224*L, Arterial Blood Partial Pressure CO2 71.3*H, Arterial Blood Partial Pressure O2 62.9L, Arterial Blood HCO3 28.8H, Arterial Blood Oxygen Saturation 89.6*L, Arterial Blood Base Excess -0.1, Ian Test Positive Height (Feet): 5 Weight (Pounds): 179 General Appearance: no apparent distress Cardiovascular: tachycardia Respiratory/Chest: decreased breath sounds Abdomen: soft, distended Objective no change Danilo Huber MD October 05, 2018 10:45
--- NOTE | 2018-10-05 11:00 | NUR ---
NURSE NOTES: Dr. Sierra at nurse station. Inquired from Dr. Sierra how long they would like to keep patient on BiPAP and whether to get an ABG tomorrow AM. Dr. Sierra acknowledged. No new orders in regards to inquiry, however informed this nurse that patient will be getting a tracheostomy inserted. Noted. Charge nurse made aware. Dr. Sierra spoke with patient regarding this procedure, per Dr. Sierra, "patient will be signing consent, she understands." Noted. Will continue to monitor patient.
--- NOTE | 2018-10-05 11:23 | Pulmonolgy Critical Care Note ---
Critical Care - Asmt/Plan Problems: (1) Respiratory failure, acute (2) Collapse of left lung Assessment & Plan: resolved (3) Atrial fibrillation with RVR (4) Hyponatremia (5) COPD (chronic obstructive pulmonary disease) (6) Anemia, chronic disease Respiratory: monitor respiratory rate, adjust FIO2, CXR Cardiac: continue pressors, continue to monitor HR/BP Renal: check electrolytes Infectious Disease: check cultures Gastrointestinal: continue feedings/current rate Endocrine: monitor blood sugar Hematologic: monitor H/H, transfuse if hgb<8.5 Neurologic: PRN Ativan, PRN Morphine, keep patient comfortable Prophylaxis: Protonix, Heparin Time Spent (Minutes): 40 Notes Reviewed: purchaser, cardio, renal, ID Discussed with: nurses, consultants, assistant case managercar rental manager - Objective Last 24 Hour Vital Signs Date Time Temp Pulse Resp B/P (MAP) Pulse Ox O2 Delivery O2 Flow Rate FiO2 10/05/18 08:00 Nasal Cannula 3.0 10/05/18 08:00 88 10/05/18 08:00 97.7 98 22 145/73 (97) 97 10/05/18 07:01 98 Nasal Cannula 4.0 36 10/05/18 07:01 Nasal Cannula 4.0 36 10/05/18 05:17 86 31 99 10/05/18 04:00 Nasal Cannula 3.0 10/05/18 04:00 97.8 92 25 132/55 (80) 100 10/05/18 03:31 88 10/05/18 02:59 82 28 98 10/05/18 00:58 90 30 98 10/05/18 00:40 98.4 80 28 143/63 (89) 100 10/05/18 00:00 Nasal Cannula 3.0 10/04/18 23:34 90 30 98 10/04/18 23:26 93 10/04/18 23:23 98 33 97 Facial 30 10/04/18 20:53 95 30 100 10/04/18 20:43 Nasal Cannula 4.0 36 10/04/18 20:43 98 Nasal Cannula 4.0 36 10/04/18 20:43 98 35 99 10/04/18 20:00 97.9 90 26 143/81 (101) 100 10/04/18 20:00 Bi-pap 10/04/18 19:39 91 10/04/18 17:45 30 10/04/18 17:16 90 31 98 Facial 30 10/04/18 16:00 97.9 91 24 144/68 (93) 94 10/04/18 16:00 Nasal Cannula 2.0 10/04/18 15:35 2.0 10/04/18 15:34 30 10/04/18 15:26 84 10/04/18 14:30 93 35 96 Facial 30 10/04/18 14:30 30 10/04/18 12:00 97.5 95 22 143/73 (96) 98 10/04/18 12:00 Nasal Cannula 2.0 10/04/18 11:55 92 10/04/18 11:27 2.0 10/04/18 11:26 30 Status: awake Condition: critical HEENT: atraumatic Neck: full ROM Lungs: clear, rales Heart: HR/BP stable Abdomen: soft, non-tender, active bowel sounds Extremities: no C/C/E, edema Critical Care - Subjective ROS Limited/Unobtainable: Yes Condition: critical EKG Rhythm: Sinus Rhythm FI02: 36 Vent Support Breath Rate: 14 Vent Support Mode: BiLevel Vent Tidal Volume: 600 Sputum Amount: None PEEP: 5.0 PIP: 14 Tube Feeding Amount: 55 I&O: Intake and Output 10/04/18 10/05/18 19:00 07:00 Intake Total 655.00 ml 1026.666 ml Output Total 1000 ml 150 ml Balance -345.00 ml 876.666 ml IV Total 275.00 ml 421.666 ml Tube Feeding 220 ml 605 ml Other 160 ml Output Urine Total 1000 ml 150 ml # Bowel Movements 2 2 Labs: Laboratory Tests Test 10/05/18 03:25 10/05/18 08:10 White Blood Count 11.3 K/UL (4.8-10.8) H Red Blood Count 3.96 M/UL (4.20-5.40) L Hemoglobin 10.2 G/DL (12.0-16.0) L Hematocrit 32.8 % (37.0-47.0) L Mean Corpuscular Volume 83 FL (80-99) Mean Corpuscular Hemoglobin 25.8 PG (27.0-31.0) L Mean Corpuscular Hemoglobin Concent 31.2 G/DL (32.0-36.0) L Red Cell Distribution Width 18.9 % (11.6-14.8) H Platelet Count 194 K/UL (150-450) Mean Platelet Volume 7.8 FL (6.5-10.1) Neutrophils (%) (Auto) 82.7 % (45.0-75.0) H Lymphocytes (%) (Auto) 7.8 % (20.0-45.0) L Monocytes (%) (Auto) 6.6 % (1.0-10.0) Eosinophils (%) (Auto) 1.3 % (0.0-3.0) Basophils (%) (Auto) 1.6 % (0.0-2.0) Sodium Level 141 MMOL/L (136-145) Potassium Level 3.8 MMOL/L (3.5-5.1) Chloride Level 107 MMOL/L (98-107) Carbon Dioxide Level 28 MMOL/L (21-32) Anion Gap 6 mmol/L (5-15) Blood Urea Nitrogen 19 mg/dL (7-18) H Creatinine 0.4 MG/DL (0.55-1.30) L Estimat Glomerular Filtration Rate mL/min (>60) Glucose Level 139 MG/DL (74-106) H Calcium Level 8.7 MG/DL (8.5-10.1) Phosphorus Level 4.2 MG/DL (2.5-4.9) Magnesium Level 2.1 MG/DL (1.8-2.4) Arterial Blood pH 7.224 (7.350-7.450) Arterial Blood Partial Pressure CO2 71.3 mmHg (35.0-45.0) *H Arterial Blood Partial Pressure O2 62.9 mmHg (75.0-100.0) L Arterial Blood HCO3 28.8 mmol/L (22.0-26.0) H Arterial Blood Oxygen Saturation 89.6 % (95-100) *L Arterial Blood Base Excess -0.1 (-2-2) Ian Test Positive Mendel Sierra MD October 05, 2018 11:23
--- NOTE | 2018-10-05 11:42 | Cardiac Electrophysiology PN ---
Assessment/Plan Assessment/Plan 1. Status post leadless intracardiac Medtronic pacer with Nl Fx 2. Chronic atrial fibrillation, stable off any antiarrhythmics. On Eliquis 5 mg bid. 3. Severe COPD. On Solu-Medrol. 4. Diastolic congestive heart failure. 5. Diabetes. 6. S/P resp failure for Left lung collapse. Extubated. BAck on BIPAP. May need tracheostomy 7. Dysphagia, failed swallow eval . Video swallow cancelled for now DW RN Subjective Subjective In atrial fib with intermittent V pacing.Now on BIPAP as PCO2 was > 70 Objective Last 24 Hour Vital Signs Date Time Temp Pulse Resp B/P (MAP) Pulse Ox O2 Delivery O2 Flow Rate FiO2 10/05/18 11:14 74 24 98 Facial 30 10/05/18 08:00 Nasal Cannula 3.0 10/05/18 08:00 88 10/05/18 08:00 97.7 98 22 145/73 (97) 97 10/05/18 07:01 98 Nasal Cannula 4.0 36 10/05/18 07:01 Nasal Cannula 4.0 36 10/05/18 05:17 86 31 99 10/05/18 04:00 Nasal Cannula 3.0 10/05/18 04:00 97.8 92 25 132/55 (80) 100 10/05/18 03:31 88 10/05/18 02:59 82 28 98 10/05/18 00:58 90 30 98 10/05/18 00:40 98.4 80 28 143/63 (89) 100 10/05/18 00:00 Nasal Cannula 3.0 10/04/18 23:34 90 30 98 10/04/18 23:26 93 10/04/18 23:23 98 33 97 Facial 30 10/04/18 20:53 95 30 100 10/04/18 20:43 Nasal Cannula 4.0 36 10/04/18 20:43 98 Nasal Cannula 4.0 36 10/04/18 20:43 98 35 99 10/04/18 20:00 97.9 90 26 143/81 (101) 100 10/04/18 20:00 Bi-pap 10/04/18 19:39 91 10/04/18 17:45 30 10/04/18 17:16 90 31 98 Facial 30 10/04/18 16:00 97.9 91 24 144/68 (93) 94 10/04/18 16:00 Nasal Cannula 2.0 10/04/18 15:35 2.0 10/04/18 15:34 30 10/04/18 15:26 84 10/04/18 14:30 93 35 96 Facial 30 10/04/18 14:30 30 10/04/18 12:00 97.5 95 22 143/73 (96) 98 10/04/18 12:00 Nasal Cannula 2.0 10/04/18 11:55 92 Intake and Output 10/04/18 10/05/18 19:00 07:00 Intake Total 655.00 ml 1026.666 ml Output Total 1000 ml 150 ml Balance -345.00 ml 876.666 ml IV Total 275.00 ml 421.666 ml Tube Feeding 220 ml 605 ml Other 160 ml Output Urine Total 1000 ml 150 ml # Bowel Movements 2 2 Laboratory Tests Test 10/05/18 03:25 10/05/18 08:10 White Blood Count 11.3 K/UL (4.8-10.8) H Red Blood Count 3.96 M/UL (4.20-5.40) L Hemoglobin 10.2 G/DL (12.0-16.0) L Hematocrit 32.8 % (37.0-47.0) L Mean Corpuscular Volume 83 FL (80-99) Mean Corpuscular Hemoglobin 25.8 PG (27.0-31.0) L Mean Corpuscular Hemoglobin Concent 31.2 G/DL (32.0-36.0) L Red Cell Distribution Width 18.9 % (11.6-14.8) H Platelet Count 194 K/UL (150-450) Mean Platelet Volume 7.8 FL (6.5-10.1) Neutrophils (%) (Auto) 82.7 % (45.0-75.0) H Lymphocytes (%) (Auto) 7.8 % (20.0-45.0) L Monocytes (%) (Auto) 6.6 % (1.0-10.0) Eosinophils (%) (Auto) 1.3 % (0.0-3.0) Basophils (%) (Auto) 1.6 % (0.0-2.0) Sodium Level 141 MMOL/L (136-145) Potassium Level 3.8 MMOL/L (3.5-5.1) Chloride Level 107 MMOL/L (98-107) Carbon Dioxide Level 28 MMOL/L (21-32) Anion Gap 6 mmol/L (5-15) Blood Urea Nitrogen 19 mg/dL (7-18) H Creatinine 0.4 MG/DL (0.55-1.30) L Estimat Glomerular Filtration Rate mL/min (>60) Glucose Level 139 MG/DL (74-106) H Calcium Level 8.7 MG/DL (8.5-10.1) Phosphorus Level 4.2 MG/DL (2.5-4.9) Magnesium Level 2.1 MG/DL (1.8-2.4) Arterial Blood pH 7.224 (7.350-7.450) Arterial Blood Partial Pressure CO2 71.3 mmHg (35.0-45.0) *H Arterial Blood Partial Pressure O2 62.9 mmHg (75.0-100.0) L Arterial Blood HCO3 28.8 mmol/L (22.0-26.0) H Arterial Blood Oxygen Saturation 89.6 % (95-100) *L Arterial Blood Base Excess -0.1 (-2-2) Ian Test Positive Objective HEAD AND NECK: Mild JVD.NG tube is in. BIPAP is on LUNGS: Coarse rhonchi bilaterally. Decrease breath sounds on the left CARDIOVASCULAR: Irregular S1 and S2 with no gallop. ABDOMEN: Soft. EXTREMITIES: No edema. Yohan Milian MD October 05, 2018 11:42
[2018-10-05 12:00] VITALS: BP 146/66
--- NOTE | 2018-10-05 12:00 | NUR ---
NURSE NOTES: Dr. Gonzalez seen and examined patient. Dr. Gonzalez spoke with patient regarding tracheostomy insertion, patient receptive. Informed Dr. Gonzalez that patient has been taking Eliquis, Dr. Gonzalez acknowledged and informed this nurse and patient that procedure may take place 10/07/18. Blood thinners helld, will endorse accordingly. Will continue to monitor patient.
--- NOTE | 2018-10-05 12:46 | Diagnostic Imaging Report ---
Indication: Dyspnea Comparison: 10/01/2018 A single view chest radiograph was obtained. Findings: Vascular prominence and mild interstitial densities are likely present and have increased. Heart is enlarged. There may be a left pleural effusion. IMPRESSION: Mild interstitial edema/CHF may be present. Correlate clinically
--- NOTE | 2018-10-05 13:22 | NUR ---
RESPIRATORY NOTE: RECEIVED PT ON CURRENT BIPAP SETTINGS: 15/5 FIO2 30%. PT ELIJAH CURRENT BIPAP SETTINGS WELL. NO REDNESS OR SORE NOTED. TAPE ON FACE INTACT. NO RESP DISTRESS NOTED. WILL CONTINUE MONITOR PT.
--- NOTE | 2018-10-05 14:30 | Infectious Diseases Prog Note ---
Assessment/Plan Assessment/Plan Assessment: Low grade fever x1, SP Leukocytosis, improving Probable PNA (no cough) -sp cx MSSA, ABC ( S cefepime, Meropenem) -10/05 CXR: Mild interstitial edema/CHF may be present. Correlate clinically -09/24 CXR: There is persistent opacity at the left lung base. -09/21 CT chest: Completely atelectatic left lung. This is likely due to endobronchial occlusion by debris. However, a small pulmonary hilar mass may also be present. This finding was discussed by phone with Dr. Sierra previously. Small left pleural effusion. Trace right pleural effusion. Posterior and basilar atelectatic changes of the right lung. Single enlarged aortopulmonary window lymph node. This could be neoplastic or reactive. This is increased in size since prior study 03/13/2018. Right lung groundglass opacity, nonspecific but likely on the basis of mild pulmonary edema. Mild cardiomegaly. Pericardial effusion Probable UTI -09/24 u/a wbc tnct nit +, leuk +3; ucx>100k EColi Gram positive bacteremia- real vs contamination -09/24 Bcx 1 ConS, 09/26 06/03 : Staph epid Hx of recurrent CONS bacteremia -07/28/18 Bcx 07/06 CONS; 07/29 Bcx Neg; 08/23 BCx neg -2d echo: no obvious vegetation -05/19/18 Bcx 08/03 S. hominis sp hominis; 05/21 Bc xNeg 2d eCho: no vegetations. Focal aortic valve sclerosis with reduced cusp excursion. Thickened mitral valve leaflets with reduced excursion. 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, s/p Rx SP VDRF, 04/10 Sp extubated Legionella Ur Ag: Neg, Legionella IgM + / IgG - Scx: No sig growth Flu screen negative Acute on chronic respiratory failure s/p intubation 09/22, 09/28 extubated CHF and COPD exacerbation Atrial flutter dCHF COPD CAD s/p stents Hypertension Seizure disorder Schizophrenia Depression History of intraventricular pacemaker implantation GERD CVA/TIA b/l hip replacement hx of L DVT history of alcohol abuse hx of recurrent admissions hx of high grade CONS bacteremia SNF resident Plan: -Cont Cefepime # 12/ for PNA and UTI and IV Vancomycin # / (for Pneum, CoNS bactremia most likley contaminant ) -10/03 Sp INH [place] d# / -Monitor CBC/CMP, temperatures -Cdiff if diarrhea - aspiration precautions Subjective Allergies: Coded Allergies: PIPERACILLIN (Unverified Allergy, Unknown, 05/21/18) tolerates cephalosporins TAZOBACTAM (Unverified Allergy, Unknown, 03/10/18) Subjective afebrile leukocytosis improving Objective Vital Signs Last 24 Hour Vital Signs Date Time Temp Pulse Resp B/P (MAP) Pulse Ox O2 Delivery O2 Flow Rate FiO2 10/05/18 13:22 97 25 89 Facial 30 10/05/18 12:00 93 10/05/18 12:00 Nasal Cannula 3.0 10/05/18 12:00 97.5 97 20 146/66 (92) 96 10/05/18 11:14 74 24 98 Facial 30 10/05/18 08:00 Nasal Cannula 3.0 10/05/18 08:00 88 10/05/18 08:00 97.7 98 22 145/73 (97) 97 10/05/18 07:01 98 Nasal Cannula 4.0 36 10/05/18 07:01 Nasal Cannula 4.0 36 10/05/18 05:17 86 31 99 10/05/18 04:00 Nasal Cannula 3.0 10/05/18 04:00 97.8 92 25 132/55 (80) 100 10/05/18 03:31 88 10/05/18 02:59 82 28 98 10/05/18 00:58 90 30 98 10/05/18 00:40 98.4 80 28 143/63 (89) 100 10/05/18 00:00 Nasal Cannula 3.0 10/04/18 23:34 90 30 98 10/04/18 23:26 93 10/04/18 23:23 98 33 97 Facial 30 10/04/18 20:53 95 30 100 10/04/18 20:43 Nasal Cannula 4.0 36 10/04/18 20:43 98 Nasal Cannula 4.0 36 10/04/18 20:43 98 35 99 10/04/18 20:00 97.9 90 26 143/81 (101) 100 10/04/18 20:00 Bi-pap 10/04/18 19:39 91 10/04/18 17:45 30 10/04/18 17:16 90 31 98 Facial 30 10/04/18 16:00 97.9 91 24 144/68 (93) 94 10/04/18 16:00 Nasal Cannula 2.0 10/04/18 15:35 2.0 10/04/18 15:34 30 10/04/18 15:26 84 10/04/18 14:30 93 35 96 Facial 30 10/04/18 14:30 30 Height (Feet): 5 Weight (Pounds): 179 Objective GENERAL: Shows to be elderly female, in no respiratory distress. NECK: Supple. No jugular venous distention. LUNGS: Inspiratory and expiratory wheezes. CARDIAC: Irregularly irregular. No heaves, thrills, or gallops noted. ABDOMEN: Soft, nontender. Positive bowel sounds. EXTREMITIES: There is no clubbing, cyanosis, or edema. NEUROLOGICAL: She is awake, alert, responsive. Laboratory Tests Test 10/05/18 03:25 10/05/18 08:10 White Blood Count 11.3 K/UL (4.8-10.8) H Red Blood Count 3.96 M/UL (4.20-5.40) L Hemoglobin 10.2 G/DL (12.0-16.0) L Hematocrit 32.8 % (37.0-47.0) L Mean Corpuscular Volume 83 FL (80-99) Mean Corpuscular Hemoglobin 25.8 PG (27.0-31.0) L Mean Corpuscular Hemoglobin Concent 31.2 G/DL (32.0-36.0) L Red Cell Distribution Width 18.9 % (11.6-14.8) H Platelet Count 194 K/UL (150-450) Mean Platelet Volume 7.8 FL (6.5-10.1) Neutrophils (%) (Auto) 82.7 % (45.0-75.0) H Lymphocytes (%) (Auto) 7.8 % (20.0-45.0) L Monocytes (%) (Auto) 6.6 % (1.0-10.0) Eosinophils (%) (Auto) 1.3 % (0.0-3.0) Basophils (%) (Auto) 1.6 % (0.0-2.0) Sodium Level 141 MMOL/L (136-145) Potassium Level 3.8 MMOL/L (3.5-5.1) Chloride Level 107 MMOL/L (98-107) Carbon Dioxide Level 28 MMOL/L (21-32) Anion Gap 6 mmol/L (5-15) Blood Urea Nitrogen 19 mg/dL (7-18) H Creatinine 0.4 MG/DL (0.55-1.30) L Estimat Glomerular Filtration Rate mL/min (>60) Glucose Level 139 MG/DL (74-106) H Calcium Level 8.7 MG/DL (8.5-10.1) Phosphorus Level 4.2 MG/DL (2.5-4.9) Magnesium Level 2.1 MG/DL (1.8-2.4) Arterial Blood pH 7.224 (7.350-7.450) Arterial Blood Partial Pressure CO2 71.3 mmHg (35.0-45.0) *H Arterial Blood Partial Pressure O2 62.9 mmHg (75.0-100.0) L Arterial Blood HCO3 28.8 mmol/L (22.0-26.0) H Arterial Blood Oxygen Saturation 89.6 % (95-100) *L Arterial Blood Base Excess -0.1 (-2-2) Ian Test Positive Current Medications Medications (Trade) Dose Ordered Sig/Ibrahima Route PRN Reason Start Time Stop Time Status Last Admin Dose Admin Acetaminophen (Tylenol) 650 mg Q4H PRN NG Mild Pain (Pain Scale 1-3) 10/01/18 08:45 10/30/18 23:44 10/03/18 21:57 Albuterol/ Ipratropium (Albuterol/ Ipratropium) 3 ml Q4H PRN HHN Shortness of Breath 10/03/18 11:30 10/08/18 11:29 Cefepime HCl 1 gm/ Dextrose 55 ml @ 110 mls/hr Q24H IVPB 10/01/18 01:00 10/06/18 00:59 10/05/18 01:22 Dextrose (Dextrose 50%) 25 ml Q30M PRN IV Hypoglycemia 09/30/18 23:00 10/17/18 06:59 Dextrose (Dextrose 50%) 50 ml Q30M PRN IV Hypoglycemia 09/30/18 23:00 10/17/18 06:59 Docusate Sodium (Colace) 100 mg TID NG 10/01/18 09:00 10/19/18 08:59 10/05/18 08:27 Folic Acid (Folate) 5 mg DAILY NG 10/01/18 09:00 10/18/18 09:59 10/05/18 08:29 Furosemide (Lasix) 40 mg DAILY IV 10/01/18 09:00 10/26/18 08:59 10/05/18 08:27 Lansoprazole (Prevacid) 30 mg BID NG 10/03/18 18:00 11/02/18 17:59 10/05/18 08:29 Phenol/Menthol (Chloraseptic) 1 spray Q3H PRN ORAL THROAT PAIN 10/01/18 14:00 10/31/18 13:59 10/04/18 06:55 Potassium Chloride (K-Dur) 40 meq DAILY NGT 10/01/18 09:00 10/27/18 12:44 10/05/18 08:28 Vancomycin HCl (Vanco rx to dose) 1 ea DAILY PRN MISC Per rx protocol 10/01/18 09:00 10/25/18 13:14 Vancomycin HCl 750 mg/Sodium Chloride 275 ml @ 183.333 mls/hr Q12HR@0400,1600 IVPB 10/02/18 16:00 10/07/18 15:59 10/05/18 03:33 Danica Nayak M.D. October 05, 2018 14:30
[2018-10-05 16:00] VITALS: BP 142/64
--- NOTE | 2018-10-05 18:51 | Internal Med Progress Note ---
Subjective Date of Service: October 05, 2018 Physician Name Juan Dutta Attending Physician Yonathan Mendoza MD Current Medications Medications (Trade) Dose Ordered Sig/Ibrahima Route PRN Reason Start Time Stop Time Status Last Admin Dose Admin Acetaminophen (Tylenol) 650 mg Q4H PRN NG Mild Pain (Pain Scale 1-3) 10/01/18 08:45 10/30/18 23:44 10/03/18 21:57 Albuterol/ Ipratropium (Albuterol/ Ipratropium) 3 ml Q4H PRN HHN Shortness of Breath 10/03/18 11:30 10/08/18 11:29 Cefepime HCl 1 gm/ Dextrose 55 ml @ 110 mls/hr Q24H IVPB 10/01/18 01:00 10/06/18 00:59 10/05/18 01:22 Dextrose (Dextrose 50%) 25 ml Q30M PRN IV Hypoglycemia 09/30/18 23:00 10/17/18 06:59 Dextrose (Dextrose 50%) 50 ml Q30M PRN IV Hypoglycemia 09/30/18 23:00 10/17/18 06:59 Docusate Sodium (Colace) 100 mg TID NG 10/01/18 09:00 10/19/18 08:59 10/05/18 08:27 Folic Acid (Folate) 5 mg DAILY NG 10/01/18 09:00 10/18/18 09:59 10/05/18 08:29 Furosemide (Lasix) 40 mg DAILY IV 10/01/18 09:00 10/26/18 08:59 10/05/18 08:27 Lansoprazole (Prevacid) 30 mg BID NG 10/03/18 18:00 11/02/18 17:59 10/05/18 08:29 Phenol/Menthol (Chloraseptic) 1 spray Q3H PRN ORAL THROAT PAIN 10/01/18 14:00 10/31/18 13:59 10/04/18 06:55 Potassium Chloride (K-Dur) 40 meq DAILY NGT 10/01/18 09:00 10/27/18 12:44 10/05/18 08:28 Vancomycin HCl (Vanco rx to dose) 1 ea DAILY PRN MISC Per rx protocol 10/01/18 09:00 10/25/18 13:14 Vancomycin HCl 750 mg/Sodium Chloride 275 ml @ 183.333 mls/hr Q12HR@0400,1600 IVPB 10/02/18 16:00 10/07/18 15:59 10/05/18 15:12 Allergies: Coded Allergies: PIPERACILLIN (Unverified Allergy, Unknown, 05/21/18) tolerates cephalosporins TAZOBACTAM (Unverified Allergy, Unknown, 03/10/18) ROS Limited/Unobtainable: No Constitutional: Reports: no symptoms HEENT: Reports: no symptoms Cardiovascular: Reports: no symptoms Respiratory: Reports: shortness of breath Gastrointestinal/Abdominal: Reports: no symptoms Genitourinary: Reports: no symptoms Neurologic/Psychiatric: Reports: no symptoms Subjective 77 YO F admitted for respiratory distress. Now left lung opacification. Extubated 09/28/18. Cover for Int Med-DR Mendoza. CHRISTOPHER. Objective Last Vital Signs Date Time Temp Pulse Resp B/P (MAP) Pulse Ox O2 Delivery O2 Flow Rate FiO2 10/05/18 18:45 Bi-pap 30 10/05/18 18:45 96 10/05/18 18:45 84 27 10/05/18 16:00 3.0 10/05/18 16:00 97.5 142/64 (90) Laboratory Tests Test 10/05/18 03:25 10/05/18 08:10 White Blood Count 11.3 K/UL (4.8-10.8) H Red Blood Count 3.96 M/UL (4.20-5.40) L Hemoglobin 10.2 G/DL (12.0-16.0) L Hematocrit 32.8 % (37.0-47.0) L Mean Corpuscular Volume 83 FL (80-99) Mean Corpuscular Hemoglobin 25.8 PG (27.0-31.0) L Mean Corpuscular Hemoglobin Concent 31.2 G/DL (32.0-36.0) L Red Cell Distribution Width 18.9 % (11.6-14.8) H Platelet Count 194 K/UL (150-450) Mean Platelet Volume 7.8 FL (6.5-10.1) Neutrophils (%) (Auto) 82.7 % (45.0-75.0) H Lymphocytes (%) (Auto) 7.8 % (20.0-45.0) L Monocytes (%) (Auto) 6.6 % (1.0-10.0) Eosinophils (%) (Auto) 1.3 % (0.0-3.0) Basophils (%) (Auto) 1.6 % (0.0-2.0) Sodium Level 141 MMOL/L (136-145) Potassium Level 3.8 MMOL/L (3.5-5.1) Chloride Level 107 MMOL/L (98-107) Carbon Dioxide Level 28 MMOL/L (21-32) Anion Gap 6 mmol/L (5-15) Blood Urea Nitrogen 19 mg/dL (7-18) H Creatinine 0.4 MG/DL (0.55-1.30) L Estimat Glomerular Filtration Rate mL/min (>60) Glucose Level 139 MG/DL (74-106) H Calcium Level 8.7 MG/DL (8.5-10.1) Phosphorus Level 4.2 MG/DL (2.5-4.9) Magnesium Level 2.1 MG/DL (1.8-2.4) Arterial Blood pH 7.224 (7.350-7.450) Arterial Blood Partial Pressure CO2 71.3 mmHg (35.0-45.0) *H Arterial Blood Partial Pressure O2 62.9 mmHg (75.0-100.0) L Arterial Blood HCO3 28.8 mmol/L (22.0-26.0) H Arterial Blood Oxygen Saturation 89.6 % (95-100) *L Arterial Blood Base Excess -0.1 (-2-2) Ian Test Positive Intake and Output 10/04/18 10/05/18 19:00 07:00 Intake Total 655.00 ml 1081.666 ml Output Total 1000 ml 150 ml Balance -345.00 ml 931.666 ml IV Total 275.00 ml 421.666 ml Tube Feeding 220 ml 660 ml Other 160 ml Output Urine Total 1000 ml 150 ml # Bowel Movements 2 2 Objective PHYSICAL EXAMINATION: GENERAL: The patient is a well-developed and well-nourished white female, who is in moderate respiratory distress. HEENT: Eyes, pupils are equal and responsive to light and accommodation. Extraocular movements are intact. NECK: Supple without lymphadenopathy. CHEST: Nasal Canula; Few rales in bilateral bases, otherwise, Lungs are clear to auscultation bilaterally without wheezes CARDIOVASCULAR: Regular rhythm and rate. S1 and S2 normal without murmurs, rubs, or gallops. ABDOMEN: Soft, nontender, and nondistended. Positive bowel sounds. No evidence of hepatosplenomegaly. Currently, no rebound or guarding noted. EXTREMITIES: Negative for clubbing, cyanosis, or edema. RECTAL/GENITAL: Refused. NEUROLOGIC: Cranial nerves II through XII are grossly intact without focal deficits. Motor strength is 5/5 bilaterally. Deep tendon reflexes are 2+ plantar. Assessment/Plan Assessment/Plan ASSESSMENT: This is a 77-year-old white female with: 1. Shortness of breath. 2. Hypoxia. 3. Acute on chronic congestive heart failure. 4. Atrial flutter. 5. Hyponatremia. 6. Chronic obstructive pulmonary disease. 7. Coronary artery disease. 8. Hypertension. 9. Seizure disorder. 10. Paranoid schizophrenia. 11. Intraventricular pacemaker 12. left lung opacification-collapse per CT TREATMENT: 1. Shortness of breath/congestive heart failure. Extubated 09/28/[address] Sierra[address] Cardiologyconsultation has been obtained with Dr. Milian. The patient is currently receiving intravenous Lasix. We will follow recommendation of Cardiology. BNP is elevated at over greater than 5000. An echocardiogram is pending. 2. Atrial flutter. Continue Eliquis as above. 3. Hyponatremia. The patient is currently receiving intravenous fluids. 4. Chronic obstructive pulmonary disease. Continue DuoNeb nebulized as above. The patient was initially placed on BiPAP in the emergency room. A Pulmonary consultation has been obtained with Dr. Mendel Sierra. 5. Hypertension. Continue Lasix as above. 6. Seizure disorder. The patient is currently off antiseizure medication. 7. Paranoid schizophrenia. Continue Risperdal as above. 8. antibiotic=cefepime and vanco Juan Dutta MD October 05, 2018 18:51
--- NOTE | 2018-10-05 19:23 | NUR ---
HAND-OFF: Report given to CHARLETTE Rice.
--- NOTE | 2018-10-05 19:24 | NUR ---
NURSE NOTES: Received Patient from Jah OVALLES. Patent awake ans has no signs of acute distress. Bed at its lowest position and call light in reach. Will continue to monitor.
--- NOTE | 2018-10-05 19:51 | NUR ---
CASE MANAGEMENT: REVIEW SI: COPD EXACERBATION . A-FLUTTER T 97.5 HR 97 RR 27 BP 146/66 SAT 96% BIPAP FIO2 30 WBC 11.3 H/H 10.3/32.8 BUN 19 CR 0.4 ABG: PH 7.224 PCO2 71.3 PO2 62.9 HCO3 28.8 SAT 89.6 IS: VANCO IV Q12HR CEFEPIME IV Q24HR LASIX IV QD ELIQUIS NG BID K-DUR NG QD NGT FEEDING STEP DOWN UNIT STATUS DCP: PATIENT IS FROM [facility]
[2018-10-05 20:00] VITALS: BP 130/62
--- NOTE | 2018-10-05 21:44 | Consultation ---
History of Present Illness General Reason for Hospitalization: Dyspnea/Respdistress Present Illness HPI This is a very pleasant 77 year old female with multiple medical comorbidities who is currently admitted to [facility] – [place], [place] for care and on BiPAP for respiratory insufficiency. Has been on positive pressure with difficulty weaning. when off positive pressure desaturates. surgery called to evaluate for possible trach placement. patient seen, chart reviewed, patient examined. Allergies: Coded Allergies: PIPERACILLIN (Unverified Allergy, Unknown, 05/21/18) tolerates cephalosporins TAZOBACTAM (Unverified Allergy, Unknown, 03/10/18) Medication History Scheduled Apixaban (Eliquis), 5 MG ORAL BID Apixaban (Eliquis), 5 MG PO EVERY 12 HOURS, (Reported) Docusate Sodium (Docusate Sodium), 100 MG ORAL DAILY, (Reported) Furosemide* (Lasix*), 40 MG ORAL TWICE A DAY Furosemide* (Lasix*), 40 MG ORAL EVERY 8 HOURS Magnesium Hydroxide (Milk of Magnesia), 30 ML ORAL DAILY, (Reported) Pantoprazole* (Protonix*), 40 MG ORAL EVERY 12 HOURS Potassium Chloride (Potassium Chloride), 10 MEQ ORAL DAILY, (Reported) Risperidone* (Risperdal*), 1 MG ORAL BEDTIME Scheduled PRN Acetaminophen With Codeine (T#3) (Tylenol #3 Tab*), 1 TAB ORAL Q4H PRN for For Pain, (Reported) Acetaminophen With Codeine (T#3) (Tylenol #3 Tab*), 1 TAB ORAL Q4H PRN for Severe Pain (Pain Scale 7-10), (Reported) Acetaminophen* (Acetaminophen 325MG Tablet*), 325 MG ORAL Q4H PRN for Fever/ Headache/Mild Pain, (Reported) Acetaminophen* (Acetaminophen 325MG Tablet*), 650 MG ORAL Q4H PRN for Mild Pain (Pain Scale 1-3), (Reported) Acetaminophen* (Acetaminophen 325MG Tablet*), 325 MG ORAL Q4H PRN for Prn Headache/Temp > 101, (Reported) Albuterol Sulfate* (Albuterol Sulfate Hhn*), 3 ML INH Q6H PRN for Shortness of Breath, (Reported) Hydrocodone Bit/Acetaminophen 5-325* ([place] 5-325*), 1 TAB ORAL Q4H PRN Ipratropium/Albuterol Sulfate (DuoNeb 0.5-3(2.5)mg/3ml), 3 ML HHN Q4HR PRN for Shortness of breath, (Reported) Polyethylene Glycol* (Miralax*), 17 GM ORAL DAILYPRN PRN Temazepam* (Restoril*), 15 MG ORAL HSPRN PRN [HYDROcodone/Acetamin 10/325], 1 TAB ORAL Q4H PRN Miscellaneous Medications Bisacodyl (Dulcolax), 10 MG RC, (Reported) Sennosides (Senna), 8.8 MG PO, (Reported) Patient History History Provided By: Patient, Medical Record, PMD Healthcare decision maker Resuscitation status Do Not Resuscitate Advanced Directive on File No Past Medical/Surgical History Past Medical/Surgical History: (1) Hyponatremia (2) Collapse of left lung (3) Hypercapnia (4) HTN (hypertension) (5) Atrial flutter (6) CAD (coronary artery disease) (7) Hyponatremia (8) Accelerated hypertension (9) Atrial fibrillation with RVR (10) Pulmonary edema (11) Seizure disorder (12) H/O ETOH abuse (13) Acute diastolic CHF (congestive heart failure) (14) UTI (lower urinary tract infection) (15) COPD (chronic obstructive pulmonary disease) (16) Bipolar depression (17) Cerebral vascular disease (18) Hypovolemic shock (19) Hemorrhagic shock (20) Hypokalemia (21) Gout (22) Gastrointestinal bleeding (23) Major depression (24) Sepsis (25) ATN (acute tubular necrosis) (26) Healthcare-associated pneumonia (27) Wheelchair bound (28) Anemia, chronic disease (29) Acute encephalopathy (30) Intractable back pain (31) Respiratory failure, acute (32) Deep vein thrombosis (DVT) of left lower extremity (33) Pacemaker Review of Systems Review of Symptoms General ROS: no weight loss or fever Psychological ROS: no depression or mood changes, no memory loss Ophthalmic ROS: no visual changes or eye irritation ENT ROS: no nasal congestion, hearing loss, dizziness Allergy and Immunology ROS: no allergic symptoms or urticaria Hematological and Lymphatic ROS: no swollen glands, unusual bleeding or bruising Endocrine ROS: no polyuria, polydipsia, weight changes, temperature intolerance Respiratory ROS: no cough, shortness of breath, mild wheezing Cardiovascular ROS: no chest pain or dyspnea on exertion Gastrointestinal ROS: denies abdominal pain, no bright red blood in stool. Musculoskeletal ROS: no myalgias or arthralgias Neurological ROS: no TIA or stroke symptoms Dermatological ROS: no new or changing skin lesions, rashes or pruritis Physical Exam Physical Exam General appearance: alert, cooperative,mild distress on Bipap, appears stated age Head: Normocephalic, without obvious abnormality, atraumatic Eyes: conjunctivae/corneas clear. PERRL, EOM's intact. Fundi benign Throat: Lips, mucosa, and tongue normal. Teeth and gums normal Neck: supple, symmetrical, trachea midline, no adenopathy, thyroid: not enlarged, symmetric, no tenderness/mass/nodules, no carotid bruit and no JVD Lungs: decreased to auscultation bilaterally Heart: regular rate and rhythm, S1, S2 normal, no murmur, click, rub or gallop Abdomen: soft, non-tender. Bowel sounds normal. No masses, no organomegaly Extremities: extremities normal, atraumatic, no cyanosis or edema Pulses: 2+ and symmetric Skin: Skin color, texture, turgor normal. No rashes or lesions Neurologic: Grossly normal Last 24 Hour Vital Signs Date Time Temp Pulse Resp B/P (MAP) Pulse Ox O2 Delivery O2 Flow Rate FiO2 10/05/18 20:00 97.7 90 24 130/62 (84) 97 10/05/18 20:00 Bi-pap 10/05/18 19:52 83 10/05/18 18:45 Bi-pap 30 10/05/18 18:45 96 Bi-pap 30 10/05/18 18:45 84 27 96 Facial 30 10/05/18 17:44 94 22 98 Facial 30 10/05/18 16:00 95 10/05/18 16:00 Nasal Cannula 3.0 10/05/18 16:00 97.5 97 20 142/64 (90) 97 10/05/18 14:59 97 15 95 Facial 30 10/05/18 13:22 97 25 89 Facial 30 10/05/18 12:00 93 10/05/18 12:00 Nasal Cannula 3.0 10/05/18 12:00 97.5 97 20 146/66 (92) 96 10/05/18 11:14 74 24 98 Facial 30 10/05/18 08:00 Nasal Cannula 3.0 10/05/18 08:00 88 10/05/18 08:00 97.7 98 22 145/73 (97) 97 10/05/18 07:01 98 Nasal Cannula 4.0 36 10/05/18 07:01 Nasal Cannula 4.0 36 10/05/18 05:17 86 31 99 10/05/18 04:00 Nasal Cannula 3.0 10/05/18 04:00 97.8 92 25 132/55 (80) 100 10/05/18 03:31 88 10/05/18 02:59 82 28 98 10/05/18 00:58 90 30 98 10/05/18 00:40 98.4 80 28 143/63 (89) 100 10/05/18 00:00 Nasal Cannula 3.0 10/04/18 23:34 90 30 98 10/04/18 23:26 93 10/04/18 23:23 98 33 97 Facial 30 Intake and Output 10/04/18 10/05/18 19:00 07:00 Intake Total 655.00 ml 1081.666 ml Output Total 1000 ml 150 ml Balance -345.00 ml 931.666 ml IV Total 275.00 ml 421.666 ml Tube Feeding 220 ml 660 ml Other 160 ml Output Urine Total 1000 ml 150 ml # Bowel Movements 2 2 Laboratory Tests Test 10/05/18 03:25 10/05/18 08:10 White Blood Count 11.3 K/UL (4.8-10.8) H Red Blood Count 3.96 M/UL (4.20-5.40) L Hemoglobin 10.2 G/DL (12.0-16.0) L Hematocrit 32.8 % (37.0-47.0) L Mean Corpuscular Volume 83 FL (80-99) Mean Corpuscular Hemoglobin 25.8 PG (27.0-31.0) L Mean Corpuscular Hemoglobin Concent 31.2 G/DL (32.0-36.0) L Red Cell Distribution Width 18.9 % (11.6-14.8) H Platelet Count 194 K/UL (150-450) Mean Platelet Volume 7.8 FL (6.5-10.1) Neutrophils (%) (Auto) 82.7 % (45.0-75.0) H Lymphocytes (%) (Auto) 7.8 % (20.0-45.0) L Monocytes (%) (Auto) 6.6 % (1.0-10.0) Eosinophils (%) (Auto) 1.3 % (0.0-3.0) Basophils (%) (Auto) 1.6 % (0.0-2.0) Sodium Level 141 MMOL/L (136-145) Potassium Level 3.8 MMOL/L (3.5-5.1) Chloride Level 107 MMOL/L (98-107) Carbon Dioxide Level 28 MMOL/L (21-32) Anion Gap 6 mmol/L (5-15) Blood Urea Nitrogen 19 mg/dL (7-18) H Creatinine 0.4 MG/DL (0.55-1.30) L Estimat Glomerular Filtration Rate mL/min (>60) Glucose Level 139 MG/DL (74-106) H Calcium Level 8.7 MG/DL (8.5-10.1) Phosphorus Level 4.2 MG/DL (2.5-4.9) Magnesium Level 2.1 MG/DL (1.8-2.4) Arterial Blood pH 7.224 (7.350-7.450) Arterial Blood Partial Pressure CO2 71.3 mmHg (35.0-45.0) *H Arterial Blood Partial Pressure O2 62.9 mmHg (75.0-100.0) L Arterial Blood HCO3 28.8 mmol/L (22.0-26.0) H Arterial Blood Oxygen Saturation 89.6 % (95-100) *L Arterial Blood Base Excess -0.1 (-2-2) Ian Test Positive Height (Feet): 5 Weight (Pounds): 179 Medications Current Medications Medications (Trade) Dose Ordered Sig/Ibrahima Route PRN Reason Start Time Stop Time Status Last Admin Dose Admin Acetaminophen (Tylenol) 650 mg Q4H PRN NG Mild Pain (Pain Scale 1-3) 10/01/18 08:45 10/30/18 23:44 10/03/18 21:57 Albuterol/ Ipratropium (Albuterol/ Ipratropium) 3 ml Q4H PRN HHN Shortness of Breath 10/03/18 11:30 10/08/18 11:29 Cefepime HCl 1 gm/ Dextrose 55 ml @ 110 mls/hr Q24H IVPB 10/01/18 01:00 10/06/18 00:59 10/05/18 01:22 Dextrose (Dextrose 50%) 25 ml Q30M PRN IV Hypoglycemia 09/30/18 23:00 10/17/18 06:59 Dextrose (Dextrose 50%) 50 ml Q30M PRN IV Hypoglycemia 09/30/18 23:00 10/17/18 06:59 Docusate Sodium (Colace) 100 mg TID NG 10/01/18 09:00 10/19/18 08:59 10/05/18 08:27 Folic Acid (Folate) 5 mg DAILY NG 10/01/18 09:00 10/18/18 09:59 10/05/18 08:29 Furosemide (Lasix) 40 mg DAILY IV 10/01/18 09:00 10/26/18 08:59 10/05/18 08:27 Lansoprazole (Prevacid) 30 mg BID NG 10/03/18 18:00 11/02/18 17:59 10/05/18 08:29 Phenol/Menthol (Chloraseptic) 1 spray Q3H PRN ORAL THROAT PAIN 10/01/18 14:00 10/31/18 13:59 10/04/18 06:55 Potassium Chloride (K-Dur) 40 meq DAILY NGT 10/01/18 09:00 10/27/18 12:44 10/05/18 08:28 Vancomycin HCl (Vanco rx to dose) 1 ea DAILY PRN MISC Per rx protocol 10/01/18 09:00 10/25/18 13:14 Vancomycin HCl 750 mg/Sodium Chloride 275 ml @ 183.333 mls/hr Q12HR@0400,1600 IVPB 10/02/18 16:00 10/07/18 15:59 10/05/18 15:12 Assessment/Plan Problem List: (1) Respiratory failure, acute Assessment & Plan: Respiratory insufficiency requiring prolonged positive pressure support discussed care plan with medical team, yard driver, and patient she is a candidate for trach given current condition and positive pressure and oxygen requirements she cannot eat because when bipap removed she desaturates. she wants to eat again. mask is uncomfortable trach indicated and recommended on blood thinners. held today plan for trach in 48hrs thank you will follow with recs ICD Codes: J96.00 - Acute respiratory failure, unspecified whether with hypoxia or hypercapnia SNOMED: [id number] Basil Gonzalez October 05, 2018 21:44
[2018-10-05] MEDS: Acetaminophen 650mg/20.3ml NG PRN (23:51)
[2018-10-06] VITALS: BP 150/68
[2018-10-06] MEDS: Acetaminophen 650mg/20.3ml NG PRN ×3 (03:30→16:16)
[2018-10-06] MEDS: Vancomycin 750mg/NS 275ml IVPB SCH ×4 (03:37→16:15)
[2018-10-06 04:00] VITALS: BP 150/67
[2018-10-06 05:28] LABS: HEMATOCRIT 32.7 % (37.0-47.0); HEMOGLOBIN 10.2 G/DL (12.0-16.0); LYMPHOCYTES % (AUTO) 13.6 % (20.0-45.0); MEAN CORPUSCULAR VOLUME 81 FL (80-99); MONOCYTES % (AUTO) 5.2 % (1.0-10.0); NEUTROPHILS % (AUTO) 78.3 % (45.0-75.0); PLATELET COUNT 176 K/UL (150-450); RED BLOOD COUNT 4.02 M/UL (4.20-5.40); RED CELL DISTRIBUTION WIDTH 18.5 % (11.6-14.8)
[2018-10-06 05:58] LABS: ANION GAP 8 mmol/L (5-15); BLOOD UREA NITROGEN 17 mg/dL (7-18); CARBON DIOXIDE 27 MMOL/L (21-32); CHLORIDE 108 MMOL/L (98-107); CREATININE 0.4 MG/DL (0.55-1.30); POTASSIUM 3.6 MMOL/L (3.5-5.1); SODIUM 143 MMOL/L (136-145)
--- NOTE | 2018-10-06 07:20 | NUR ---
HAND-OFF: Report given to Jessica Good RN.
--- NOTE | 2018-10-06 07:28 | NUR ---
NURSE NOTES: Received patient from Kavon Rice RN. patient is awake and alert and oriented x3. patient is receiving oxygen at 2 liters/min nasal cannula. no signs and symptoms of respiratory distress noted. NGT right nares in place. will start tube feeding. potts catheter is in place and patent. Right forearm IV 22 gauge and left forearm IV 24 gauge are patent and asymptomatic. bed in lowest position, padded siderails up X3, call light within reach.
[2018-10-06 08:00] VITALS: BP 146/66
[2018-10-06] MEDS: Docusate 100mg/10ml Liq NG SCH ×3 (08:43→17:58)
--- NOTE | 2018-10-06 09:22 | Cardiology Progress Note ---
Assessment/Plan Assessment/Plan 1. Bronchospasm. 2. Possible left-sided infiltrate or pneumonia. 3. Diastolic heart failure history. 4. Permanent atrial fibrillation. 5. lung collapse 6. hs of pacer tele afib noted plan for possible trach off eliquis ekg today afib coags to done cxr personally reviewed echo normal lv function moderate diastolic dysfunction diamox was dcd yest on lasix 40 mg qd extra k Subjective Cardiovascular: Denies: chest pain, lightheadedness Respiratory: Reports: shortness of breath Gastrointestinal/Abdominal: Denies: abdominal pain Genitourinary: Denies: burning Objective Last 24 Hour Vital Signs Date Time Temp Pulse Resp B/P (MAP) Pulse Ox O2 Delivery O2 Flow Rate FiO2 10/06/18 08:00 Nasal Cannula 2.0 10/06/18 08:00 97.5 86 28 146/66 (92) 98 10/06/18 07:08 93 Bi-pap 30 10/06/18 07:08 Bi-pap 30 10/06/18 07:07 89 24 93 Facial 30 10/06/18 05:15 70 16 97 Facial 30 10/06/18 04:00 Bi-pap 10/06/18 04:00 96.4 81 17 150/67 (94) 98 10/06/18 04:00 82 10/06/18 03:01 79 16 99 Facial 30 10/06/18 01:15 88 20 96 Facial 30 10/06/18 00:00 87 10/06/18 00:00 96.8 81 19 150/68 (95) 98 10/06/18 00:00 Bi-pap 10/05/18 23:00 87 15 96 Facial 30 10/05/18 21:10 82 18 96 Facial 30 10/05/18 20:00 97.7 90 24 130/62 (84) 97 10/05/18 20:00 Bi-pap 10/05/18 19:52 83 10/05/18 18:45 Bi-pap 30 10/05/18 18:45 96 Bi-pap 30 10/05/18 18:45 84 27 96 Facial 30 10/05/18 17:44 94 22 98 Facial 30 10/05/18 16:00 95 10/05/18 16:00 Nasal Cannula 3.0 10/05/18 16:00 97.5 97 20 142/64 (90) 97 10/05/18 14:59 97 15 95 Facial 30 10/05/18 13:22 97 25 89 Facial 30 10/05/18 12:00 93 10/05/18 12:00 Nasal Cannula 3.0 10/05/18 12:00 97.5 97 20 146/66 (92) 96 10/05/18 11:14 74 24 98 Facial 30 General Appearance: no apparent distress, alert Neck: supple Cardiovascular: irregularly irregular Respiratory/Chest: lungs clear Abdomen: normal bowel sounds, non tender, soft Extremities: no swelling Intake and Output 10/05/18 10/06/18 18:59 06:59 Intake Total 960 ml Output Total 1300 ml 470 ml Balance -340 ml -470 ml Free Water 300 ml Tube Feeding 660 ml Output Urine Total 1300 ml 470 ml # Bowel Movements 4 Laboratory Tests Test 10/06/18 03:50 10/06/18 07:05 White Blood Count 9.0 K/UL (4.8-10.8) Red Blood Count 4.02 M/UL (4.20-5.40) L Hemoglobin 10.2 G/DL (12.0-16.0) L Hematocrit 32.7 % (37.0-47.0) L Mean Corpuscular Volume 81 FL (80-99) Mean Corpuscular Hemoglobin 25.5 PG (27.0-31.0) L Mean Corpuscular Hemoglobin Concent 31.3 G/DL (32.0-36.0) L Red Cell Distribution Width 18.5 % (11.6-14.8) H Platelet Count 176 K/UL (150-450) Mean Platelet Volume 7.8 FL (6.5-10.1) Neutrophils (%) (Auto) 78.3 % (45.0-75.0) H Lymphocytes (%) (Auto) 13.6 % (20.0-45.0) L Monocytes (%) (Auto) 5.2 % (1.0-10.0) Eosinophils (%) (Auto) 2.0 % (0.0-3.0) Basophils (%) (Auto) 1.0 % (0.0-2.0) Sodium Level 143 MMOL/L (136-145) Potassium Level 3.6 MMOL/L (3.5-5.1) Chloride Level 108 MMOL/L (98-107) H Carbon Dioxide Level 27 MMOL/L (21-32) Anion Gap 8 mmol/L (5-15) Blood Urea Nitrogen 17 mg/dL (7-18) Creatinine 0.4 MG/DL (0.55-1.30) L Estimat Glomerular Filtration Rate mL/min (>60) Glucose Level 110 MG/DL (74-106) H Calcium Level 9.0 MG/DL (8.5-10.1) Arterial Blood pH 7.320 (7.350-7.450) Arterial Blood Partial Pressure CO2 54.2 mmHg (35.0-45.0) H Arterial Blood Partial Pressure O2 76.0 mmHg (75.0-100.0) Arterial Blood HCO3 27.3 mmol/L (22.0-26.0) H Arterial Blood Oxygen Saturation 93.7 % (95-100) L Arterial Blood Base Excess 0.5 (-2-2) Ian Test Positive Akbar Reno MD October 06, 2018 09:22
--- NOTE | 2018-10-06 10:10 | Cardiac Electrophysiology PN ---
Assessment/Plan Assessment/Plan 1. Status post leadless intracardiac Medtronic pacer with Nl Fx 2. Chronic atrial fibrillation, stable off any AVN anil Eliquis held for possible tracheostomy 3. Severe COPD. On Solu-Medrol. 4. Diastolic congestive heart failure. 5. Diabetes. 6. S/P resp failure for Left lung collapse. Extubated. Back on BIPAP. May need tracheostomy Off Eliquis now 7. Dysphagia, failed swallow eval . DW RN Subjective Subjective In atrial fib with intermittent V pacing. Was on BIPAP overnight.RN at bedside Objective Last 24 Hour Vital Signs Date Time Temp Pulse Resp B/P (MAP) Pulse Ox O2 Delivery O2 Flow Rate FiO2 10/06/18 08:00 82 10/06/18 08:00 Nasal Cannula 2.0 10/06/18 08:00 97.5 86 28 146/66 (92) 98 10/06/18 07:08 93 Bi-pap 30 10/06/18 07:08 Bi-pap 30 10/06/18 07:07 89 24 93 Facial 30 10/06/18 05:15 70 16 97 Facial 30 10/06/18 04:00 Bi-pap 10/06/18 04:00 96.4 81 17 150/67 (94) 98 10/06/18 04:00 82 10/06/18 03:01 79 16 99 Facial 30 10/06/18 01:15 88 20 96 Facial 30 10/06/18 00:00 87 10/06/18 00:00 96.8 81 19 150/68 (95) 98 10/06/18 00:00 Bi-pap 10/05/18 23:00 87 15 96 Facial 30 10/05/18 21:10 82 18 96 Facial 30 10/05/18 20:00 97.7 90 24 130/62 (84) 97 10/05/18 20:00 Bi-pap 10/05/18 19:52 83 10/05/18 18:45 Bi-pap 30 10/05/18 18:45 96 Bi-pap 30 10/05/18 18:45 84 27 96 Facial 30 10/05/18 17:44 94 22 98 Facial 30 10/05/18 16:00 95 10/05/18 16:00 Nasal Cannula 3.0 10/05/18 16:00 97.5 97 20 142/64 (90) 97 10/05/18 14:59 97 15 95 Facial 30 10/05/18 13:22 97 25 89 Facial 30 10/05/18 12:00 93 10/05/18 12:00 Nasal Cannula 3.0 10/05/18 12:00 97.5 97 20 146/66 (92) 96 10/05/18 11:14 74 24 98 Facial 30 Intake and Output 10/05/18 10/06/18 19:00 07:00 Intake Total 905 ml Output Total 1300 ml 470 ml Balance -395 ml -470 ml Free Water 300 ml Tube Feeding 605 ml Output Urine Total 1300 ml 470 ml # Bowel Movements 4 Laboratory Tests Test 10/06/18 03:50 10/06/18 07:05 White Blood Count 9.0 K/UL (4.8-10.8) Red Blood Count 4.02 M/UL (4.20-5.40) L Hemoglobin 10.2 G/DL (12.0-16.0) L Hematocrit 32.7 % (37.0-47.0) L Mean Corpuscular Volume 81 FL (80-99) Mean Corpuscular Hemoglobin 25.5 PG (27.0-31.0) L Mean Corpuscular Hemoglobin Concent 31.3 G/DL (32.0-36.0) L Red Cell Distribution Width 18.5 % (11.6-14.8) H Platelet Count 176 K/UL (150-450) Mean Platelet Volume 7.8 FL (6.5-10.1) Neutrophils (%) (Auto) 78.3 % (45.0-75.0) H Lymphocytes (%) (Auto) 13.6 % (20.0-45.0) L Monocytes (%) (Auto) 5.2 % (1.0-10.0) Eosinophils (%) (Auto) 2.0 % (0.0-3.0) Basophils (%) (Auto) 1.0 % (0.0-2.0) Sodium Level 143 MMOL/L (136-145) Potassium Level 3.6 MMOL/L (3.5-5.1) Chloride Level 108 MMOL/L (98-107) H Carbon Dioxide Level 27 MMOL/L (21-32) Anion Gap 8 mmol/L (5-15) Blood Urea Nitrogen 17 mg/dL (7-18) Creatinine 0.4 MG/DL (0.55-1.30) L Estimat Glomerular Filtration Rate mL/min (>60) Glucose Level 110 MG/DL (74-106) H Calcium Level 9.0 MG/DL (8.5-10.1) Arterial Blood pH 7.320 (7.350-7.450) Arterial Blood Partial Pressure CO2 54.2 mmHg (35.0-45.0) H Arterial Blood Partial Pressure O2 76.0 mmHg (75.0-100.0) Arterial Blood HCO3 27.3 mmol/L (22.0-26.0) H Arterial Blood Oxygen Saturation 93.7 % (95-100) L Arterial Blood Base Excess 0.5 (-2-2) Ian Test Positive Objective HEAD AND NECK: Mild JVD. NG tube is in. BIPAP was on LUNGS: Coarse rhonchi bilaterally. CARDIOVASCULAR: Irregular S1 and S2 with no gallop. ABDOMEN: Soft. EXTREMITIES: No edema. Yohan Milian MD October 06, 2018 10:10
--- NOTE | 2018-10-06 11:27 | Pulmonolgy Critical Care Note ---
Critical Care - Asmt/Plan Problems: (1) Respiratory failure, acute (2) Collapse of left lung Assessment & Plan: resolved (3) Atrial fibrillation with RVR (4) Hyponatremia (5) COPD (chronic obstructive pulmonary disease) (6) Anemia, chronic disease Respiratory: monitor respiratory rate, adjust FIO2, CXR Cardiac: continue to monitor HR/BP Renal: F/U I&O, keep IV fluid Gastrointestinal: continue feedings/current rate Endocrine: monitor blood sugar Hematologic: monitor H/H, transfuse if hgb<8.5 Neurologic: PRN Morphine, keep patient comfortable Prophylaxis: Protonix, Heparin Time Spent (Minutes): 40 Notes Reviewed: church administrator, cardio Discussed with: nurses, consultants, correctional case managerglobal compensation manager - Objective Last 24 Hour Vital Signs Date Time Temp Pulse Resp B/P (MAP) Pulse Ox O2 Delivery O2 Flow Rate FiO2 10/06/18 08:00 82 10/06/18 08:00 Nasal Cannula 2.0 10/06/18 08:00 97.5 86 28 146/66 (92) 98 10/06/18 07:08 93 Bi-pap 30 10/06/18 07:08 Bi-pap 30 10/06/18 07:07 89 24 93 Facial 30 10/06/18 05:15 70 16 97 Facial 30 10/06/18 04:00 Bi-pap 10/06/18 04:00 96.4 81 17 150/67 (94) 98 10/06/18 04:00 82 10/06/18 03:01 79 16 99 Facial 30 10/06/18 01:15 88 20 96 Facial 30 10/06/18 00:00 87 10/06/18 00:00 96.8 81 19 150/68 (95) 98 10/06/18 00:00 Bi-pap 10/05/18 23:00 87 15 96 Facial 30 10/05/18 21:10 82 18 96 Facial 30 10/05/18 20:00 97.7 90 24 130/62 (84) 97 10/05/18 20:00 Bi-pap 10/05/18 19:52 83 10/05/18 18:45 Bi-pap 30 10/05/18 18:45 96 Bi-pap 30 10/05/18 18:45 84 27 96 Facial 30 10/05/18 17:44 94 22 98 Facial 30 10/05/18 16:00 95 10/05/18 16:00 Nasal Cannula 3.0 10/05/18 16:00 97.5 97 20 142/64 (90) 97 10/05/18 14:59 97 15 95 Facial 30 10/05/18 13:22 97 25 89 Facial 30 10/05/18 12:00 93 10/05/18 12:00 Nasal Cannula 3.0 10/05/18 12:00 97.5 97 20 146/66 (92) 96 Status: awake Condition: critical, improving HEENT: atraumatic Neck: full ROM Lungs: rales, rhonchi Heart: HR/BP stable Abdomen: soft, non-tender Extremities: no C/C/E Decubiti: location Critical Care - Subjective Interval Events: looks comfortable Condition: critical EKG Rhythm: Sinus Rhythm FI02: 30 Vent Support Breath Rate: 14 Vent Support Mode: BiLevel Vent Tidal Volume: 600 Sputum Amount: None PEEP: 5.0 PIP: 14 Tube Feeding Amount: 55 I&O: Intake and Output 10/05/18 10/06/18 19:00 07:00 Intake Total 905 ml Output Total 1300 ml 470 ml Balance -395 ml -470 ml Free Water 300 ml Tube Feeding 605 ml Output Urine Total 1300 ml 470 ml # Bowel Movements 4 CXR: left lung is clear right pulmonary edema vs infiltrate Labs: Laboratory Tests Test 10/06/18 03:50 10/06/18 07:05 10/06/18 10:20 White Blood Count 9.0 K/UL (4.8-10.8) Red Blood Count 4.02 M/UL (4.20-5.40) L Hemoglobin 10.2 G/DL (12.0-16.0) L Hematocrit 32.7 % (37.0-47.0) L Mean Corpuscular Volume 81 FL (80-99) Mean Corpuscular Hemoglobin 25.5 PG (27.0-31.0) L Mean Corpuscular Hemoglobin Concent 31.3 G/DL (32.0-36.0) L Red Cell Distribution Width 18.5 % (11.6-14.8) H Platelet Count 176 K/UL (150-450) Mean Platelet Volume 7.8 FL (6.5-10.1) Neutrophils (%) (Auto) 78.3 % (45.0-75.0) H Lymphocytes (%) (Auto) 13.6 % (20.0-45.0) L Monocytes (%) (Auto) 5.2 % (1.0-10.0) Eosinophils (%) (Auto) 2.0 % (0.0-3.0) Basophils (%) (Auto) 1.0 % (0.0-2.0) Sodium Level 143 MMOL/L (136-145) Potassium Level 3.6 MMOL/L (3.5-5.1) Chloride Level 108 MMOL/L (98-107) H Carbon Dioxide Level 27 MMOL/L (21-32) Anion Gap 8 mmol/L (5-15) Blood Urea Nitrogen 17 mg/dL (7-18) Creatinine 0.4 MG/DL (0.55-1.30) L Estimat Glomerular Filtration Rate mL/min (>60) Glucose Level 110 MG/DL (74-106) H Calcium Level 9.0 MG/DL (8.5-10.1) Arterial Blood pH 7.320 (7.350-7.450) Arterial Blood Partial Pressure CO2 54.2 mmHg (35.0-45.0) H Arterial Blood Partial Pressure O2 76.0 mmHg (75.0-100.0) Arterial Blood HCO3 27.3 mmol/L (22.0-26.0) H Arterial Blood Oxygen Saturation 93.7 % (95-100) L Arterial Blood Base Excess 0.5 (-2-2) Ian Test Positive Prothrombin Time 10.7 SEC (9.30-11.50) Prothromb Time International Ratio 1.0 (0.9-1.1) Activated Partial Thromboplast Time 32 SEC (23-33) Mendel Sierra MD October 06, 2018 11:27
--- NOTE | 2018-10-06 11:30 | Surgery Progress Note ---
Surgery Progress Note Subjective Additional Comments was able to wean from BiPAP. on supplemental O2 support. comfortable so far. Objective Last 24 Hour Vital Signs Date Time Temp Pulse Resp B/P (MAP) Pulse Ox O2 Delivery O2 Flow Rate FiO2 10/06/18 08:00 82 10/06/18 08:00 Nasal Cannula 2.0 10/06/18 08:00 97.5 86 28 146/66 (92) 98 10/06/18 07:08 93 Bi-pap 30 10/06/18 07:08 Bi-pap 30 10/06/18 07:07 89 24 93 Facial 30 10/06/18 05:15 70 16 97 Facial 30 10/06/18 04:00 Bi-pap 10/06/18 04:00 96.4 81 17 150/67 (94) 98 10/06/18 04:00 82 10/06/18 03:01 79 16 99 Facial 30 10/06/18 01:15 88 20 96 Facial 30 10/06/18 00:00 87 10/06/18 00:00 96.8 81 19 150/68 (95) 98 10/06/18 00:00 Bi-pap 10/05/18 23:00 87 15 96 Facial 30 10/05/18 21:10 82 18 96 Facial 30 10/05/18 20:00 97.7 90 24 130/62 (84) 97 10/05/18 20:00 Bi-pap 10/05/18 19:52 83 10/05/18 18:45 Bi-pap 30 10/05/18 18:45 96 Bi-pap 30 10/05/18 18:45 84 27 96 Facial 30 10/05/18 17:44 94 22 98 Facial 30 10/05/18 16:00 95 10/05/18 16:00 Nasal Cannula 3.0 10/05/18 16:00 97.5 97 20 142/64 (90) 97 10/05/18 14:59 97 15 95 Facial 30 10/05/18 13:22 97 25 89 Facial 30 10/05/18 12:00 93 10/05/18 12:00 Nasal Cannula 3.0 10/05/18 12:00 97.5 97 20 146/66 (92) 96 I&O Intake and Output 10/05/18 10/06/18 19:00 07:00 Intake Total 905 ml Output Total 1300 ml 470 ml Balance -395 ml -470 ml Free Water 300 ml Tube Feeding 605 ml Output Urine Total 1300 ml 470 ml # Bowel Movements 4 Cardiovascular: RSR Respiratory: decreased breath sounds Abdomen: soft, present bowel sounds, non-distended Extremities: no cyanosis Laboratory Tests Test 10/06/18 03:50 10/06/18 07:05 10/06/18 10:20 White Blood Count 9.0 K/UL (4.8-10.8) Red Blood Count 4.02 M/UL (4.20-5.40) L Hemoglobin 10.2 G/DL (12.0-16.0) L Hematocrit 32.7 % (37.0-47.0) L Mean Corpuscular Volume 81 FL (80-99) Mean Corpuscular Hemoglobin 25.5 PG (27.0-31.0) L Mean Corpuscular Hemoglobin Concent 31.3 G/DL (32.0-36.0) L Red Cell Distribution Width 18.5 % (11.6-14.8) H Platelet Count 176 K/UL (150-450) Mean Platelet Volume 7.8 FL (6.5-10.1) Neutrophils (%) (Auto) 78.3 % (45.0-75.0) H Lymphocytes (%) (Auto) 13.6 % (20.0-45.0) L Monocytes (%) (Auto) 5.2 % (1.0-10.0) Eosinophils (%) (Auto) 2.0 % (0.0-3.0) Basophils (%) (Auto) 1.0 % (0.0-2.0) Sodium Level 143 MMOL/L (136-145) Potassium Level 3.6 MMOL/L (3.5-5.1) Chloride Level 108 MMOL/L (98-107) H Carbon Dioxide Level 27 MMOL/L (21-32) Anion Gap 8 mmol/L (5-15) Blood Urea Nitrogen 17 mg/dL (7-18) Creatinine 0.4 MG/DL (0.55-1.30) L Estimat Glomerular Filtration Rate mL/min (>60) Glucose Level 110 MG/DL (74-106) H Calcium Level 9.0 MG/DL (8.5-10.1) Arterial Blood pH 7.320 (7.350-7.450) Arterial Blood Partial Pressure CO2 54.2 mmHg (35.0-45.0) H Arterial Blood Partial Pressure O2 76.0 mmHg (75.0-100.0) Arterial Blood HCO3 27.3 mmol/L (22.0-26.0) H Arterial Blood Oxygen Saturation 93.7 % (95-100) L Arterial Blood Base Excess 0.5 (-2-2) Ian Test Positive Prothrombin Time 10.7 SEC (9.30-11.50) Prothromb Time International Ratio 1.0 (0.9-1.1) Activated Partial Thromboplast Time 32 SEC (23-33) Plan Problems: (1) Respiratory failure, acute Assessment & Plan: Respiratory insufficiency requiring prolonged positive pressure support discussed care plan with medical team, wafer abrading machine tender, and patient she is a candidate for trach given current condition and positive pressure and oxygen requirements she cannot eat because when bipap removed she desaturates. she wants to eat again. mask is uncomfortable trach indicated and recommended on blood thinners. held today plan for trach in 48hrs has been having multiple admissions for similar events. may need airway protection despite being weaned off BiPAP will discuss with pulm team thank you will follow with Basil Arcos October 06, 2018 11:30
--- NOTE | 2018-10-06 11:45 | Infectious Diseases Prog Note ---
Assessment/Plan Assessment/Plan Assessment: Low grade fever x1, SP Leukocytosis, SP Probable PNA (no cough) -sp cx MSSA, ABC ( S cefepime, Meropenem) -10/05 CXR: Mild interstitial edema/CHF may be present. Correlate clinically -09/24 CXR: There is persistent opacity at the left lung base. -09/21 CT chest: Completely atelectatic left lung. This is likely due to endobronchial occlusion by debris. However, a small pulmonary hilar mass may also be present. This finding was discussed by phone with Dr. Sierra previously. Small left pleural effusion. Trace right pleural effusion. Posterior and basilar atelectatic changes of the right lung. Single enlarged aortopulmonary window lymph node. This could be neoplastic or reactive. This is increased in size since prior study 03/13/2018. Right lung groundglass opacity, nonspecific but likely on the basis of mild pulmonary edema. Mild cardiomegaly. Pericardial effusion Probable UTI -09/24 u/a wbc tnct nit +, leuk +3; ucx>100k EColi Gram positive bacteremia- real vs contamination -09/24 Bcx 06/05 ConS, 09/26 1 : Staph epid; 09/29 Bcx neg Hx of recurrent CONS bacteremia -07/28/18 Bcx 07/06 CONS; 07/29 Bcx Neg; 08/23 BCx neg -2d echo: no obvious vegetation -05/19/18 Bcx 08/03 S. hominis sp hominis; 05/21 Bc xNeg 2d eCho: no vegetations. Focal aortic valve sclerosis with reduced cusp excursion. Thickened mitral valve leaflets with reduced excursion. 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, s/p Rx SP VDRF, 04/10 Sp extubated Legionella Ur Ag: Neg, Legionella IgM + / IgG - Scx: No sig growth Flu screen negative Acute on chronic respiratory failure s/p intubation 09/22, 09/28 extubated CHF and COPD exacerbation Atrial flutter dCHF COPD CAD s/p stents Hypertension Seizure disorder Schizophrenia Depression History of intraventricular pacemaker implantation GERD CVA/TIA b/l hip replacement hx of L DVT history of alcohol abuse hx of recurrent admissions hx of high grade CONS bacteremia SNF resident Plan: -Cont Cefepime # 13/ 14 for PNA and UTI and IV Vancomycin # 12/ (for Pneum, CoNS bactremia most likley contaminant ) -10/03 Sp INH [place] d# 12/06 -Monitor CBC/CMP, temperatures -Cdiff if diarrhea - aspiration precautions Subjective Allergies: Coded Allergies: PIPERACILLIN (Unverified Allergy, Unknown, 05/21/18) tolerates cephalosporins TAZOBACTAM (Unverified Allergy, Unknown, 03/10/18) Subjective afebrile leukocytosis resolved Objective Vital Signs Last 24 Hour Vital Signs Date Time Temp Pulse Resp B/P (MAP) Pulse Ox O2 Delivery O2 Flow Rate FiO2 10/06/18 11:23 97.5 10/06/18 08:00 82 10/06/18 08:00 Nasal Cannula 2.0 10/06/18 08:00 97.5 86 28 146/66 (92) 98 10/06/18 07:08 93 Bi-pap 30 10/06/18 07:08 Bi-pap 30 10/06/18 07:07 89 24 93 Facial 30 10/06/18 05:15 70 16 97 Facial 30 10/06/18 04:00 Bi-pap 10/06/18 04:00 96.4 81 17 150/67 (94) 98 10/06/18 04:00 82 10/06/18 03:01 79 16 99 Facial 30 10/06/18 01:15 88 20 96 Facial 30 10/06/18 00:00 87 10/06/18 00:00 96.8 81 19 150/68 (95) 98 10/06/18 00:00 Bi-pap 10/05/18 23:00 87 15 96 Facial 30 10/05/18 21:10 82 18 96 Facial 30 10/05/18 20:00 97.7 90 24 130/62 (84) 97 10/05/18 20:00 Bi-pap 10/05/18 19:52 83 10/05/18 18:45 Bi-pap 30 10/05/18 18:45 96 Bi-pap 30 10/05/18 18:45 84 27 96 Facial 30 10/05/18 17:44 94 22 98 Facial 30 10/05/18 16:00 95 10/05/18 16:00 Nasal Cannula 3.0 10/05/18 16:00 97.5 97 20 142/64 (90) 97 10/05/18 14:59 97 15 95 Facial 30 10/05/18 13:22 97 25 89 Facial 30 10/05/18 12:00 93 10/05/18 12:00 Nasal Cannula 3.0 10/05/18 12:00 97.5 97 20 146/66 (92) 96 Height (Feet): 5 Weight (Pounds): 179 Objective GENERAL: Shows to be elderly female, in no respiratory distress. NECK: Supple. No jugular venous distention. LUNGS: Inspiratory and expiratory wheezes. CARDIAC: Irregularly irregular. No heaves, thrills, or gallops noted. ABDOMEN: Soft, nontender. Positive bowel sounds. EXTREMITIES: There is no clubbing, cyanosis, or edema. NEUROLOGICAL: She is awake, alert, responsive. Laboratory Tests Test 10/06/18 03:50 10/06/18 07:05 10/06/18 10:20 White Blood Count 9.0 K/UL (4.8-10.8) Red Blood Count 4.02 M/UL (4.20-5.40) L Hemoglobin 10.2 G/DL (12.0-16.0) L Hematocrit 32.7 % (37.0-47.0) L Mean Corpuscular Volume 81 FL (80-99) Mean Corpuscular Hemoglobin 25.5 PG (27.0-31.0) L Mean Corpuscular Hemoglobin Concent 31.3 G/DL (32.0-36.0) L Red Cell Distribution Width 18.5 % (11.6-14.8) H Platelet Count 176 K/UL (150-450) Mean Platelet Volume 7.8 FL (6.5-10.1) Neutrophils (%) (Auto) 78.3 % (45.0-75.0) H Lymphocytes (%) (Auto) 13.6 % (20.0-45.0) L Monocytes (%) (Auto) 5.2 % (1.0-10.0) Eosinophils (%) (Auto) 2.0 % (0.0-3.0) Basophils (%) (Auto) 1.0 % (0.0-2.0) Sodium Level 143 MMOL/L (136-145) Potassium Level 3.6 MMOL/L (3.5-5.1) Chloride Level 108 MMOL/L (98-107) H Carbon Dioxide Level 27 MMOL/L (21-32) Anion Gap 8 mmol/L (5-15) Blood Urea Nitrogen 17 mg/dL (7-18) Creatinine 0.4 MG/DL (0.55-1.30) L Estimat Glomerular Filtration Rate mL/min (>60) Glucose Level 110 MG/DL (74-106) H Calcium Level 9.0 MG/DL (8.5-10.1) Arterial Blood pH 7.320 (7.350-7.450) Arterial Blood Partial Pressure CO2 54.2 mmHg (35.0-45.0) H Arterial Blood Partial Pressure O2 76.0 mmHg (75.0-100.0) Arterial Blood HCO3 27.3 mmol/L (22.0-26.0) H Arterial Blood Oxygen Saturation 93.7 % (95-100) L Arterial Blood Base Excess 0.5 (-2-2) Ian Test Positive Prothrombin Time 10.7 SEC (9.30-11.50) Prothromb Time International Ratio 1.0 (0.9-1.1) Activated Partial Thromboplast Time 32 SEC (23-33) Current Medications Medications (Trade) Dose Ordered Sig/Ibrahima Route PRN Reason Start Time Stop Time Status Last Admin Dose Admin Acetaminophen (Tylenol) 650 mg Q4H PRN NG Mild Pain (Pain Scale 1-3) 10/01/18 08:45 10/30/18 23:44 10/06/18 10:53 Albuterol/ Ipratropium (Albuterol/ Ipratropium) 3 ml Q4H PRN HHN Shortness of Breath 10/03/18 11:30 10/08/18 11:29 Cefepime HCl 1 gm/ Dextrose 55 ml @ 110 mls/hr Q24H IVPB 10/06/18 12:00 10/07/18 11:59 10/06/18 11:38 Dextrose (Dextrose 50%) 25 ml Q30M PRN IV Hypoglycemia 09/30/18 23:00 10/17/18 06:59 Dextrose (Dextrose 50%) 50 ml Q30M PRN IV Hypoglycemia 09/30/18 23:00 10/17/18 06:59 Docusate Sodium (Colace) 100 mg TID NG 10/01/18 09:00 10/19/18 08:59 10/06/18 08:43 Folic Acid (Folate) 5 mg DAILY NG 10/01/18 09:00 10/18/18 09:59 10/06/18 08:44 Furosemide (Lasix) 40 mg DAILY IV 10/01/18 09:00 10/26/18 08:59 10/06/18 08:44 Lansoprazole (Prevacid) 30 mg BID NG 10/03/18 18:00 11/02/18 17:59 10/06/18 08:44 Phenol/Menthol (Chloraseptic) 1 spray Q3H PRN ORAL THROAT PAIN 10/01/18 14:00 10/31/18 13:59 10/04/18 06:55 Potassium Chloride (K-Dur) 40 meq DAILY NGT 10/01/18 09:00 10/27/18 12:44 10/06/18 08:43 Vancomycin HCl (Vanco rx to dose) 1 ea DAILY PRN MISC Per rx protocol 10/01/18 09:00 10/25/18 13:14 Vancomycin HCl 750 mg/Sodium Chloride 275 ml @ 183.333 mls/hr Q12HR@0400,1600 IVPB 10/02/18 16:00 10/08/18 15:59 10/06/18 03:37 Danica Nayak M.D. October 06, 2018 11:45
[2018-10-06 12:00] VITALS: BP 139/68
[2018-10-06] MEDS ORDERED: Cefepime HCl 1 GM in D5W 55 ML IVPB SCH (12:00)
--- NOTE | 2018-10-06 12:19 | Nephrology Progress Note ---
Assessment/Plan Problem List: (1) Respiratory failure, acute Assessment: Co2 Retainer (2) Hyponatremia (3) Seizure disorder (4) Acute diastolic CHF (congestive heart failure) (5) COPD (chronic obstructive pulmonary disease) (6) Pacemaker Assessment Now extubated HypoNatremia ? Etiology: depletional / Diuretics / SIADH ... bronchoscopy for left lung collapse Acute respiratory failure on BIPAP- COPD Encephalopathy due to high CO2 Pacemaker UTI Low MCV Anemia Hypoalbuminemia EjFx 55% last admission h/o Atfib Plan Per pulmonary K supplement as needed now extubated since 09/28 López PRN lasix IV iron monitor lytes Anemia clinton per orders Subjective ROS Limited/Unobtainable: No Objective Objective Last 24 Hour Vital Signs Date Time Temp Pulse Resp B/P (MAP) Pulse Ox O2 Delivery O2 Flow Rate FiO2 10/06/18 12:00 97.8 89 29 139/68 (91) 96 10/06/18 11:23 97.5 10/06/18 08:00 82 10/06/18 08:00 Nasal Cannula 2.0 10/06/18 08:00 97.5 86 28 146/66 (92) 98 10/06/18 07:08 93 Bi-pap 30 10/06/18 07:08 Bi-pap 30 10/06/18 07:07 89 24 93 Facial 30 10/06/18 05:15 70 16 97 Facial 30 10/06/18 04:00 Bi-pap 10/06/18 04:00 96.4 81 17 150/67 (94) 98 10/06/18 04:00 82 10/06/18 03:01 79 16 99 Facial 30 10/06/18 01:15 88 20 96 Facial 30 10/06/18 00:00 87 10/06/18 00:00 96.8 81 19 150/68 (95) 98 10/06/18 00:00 Bi-pap 10/05/18 23:00 87 15 96 Facial 30 10/05/18 21:10 82 18 96 Facial 30 10/05/18 20:00 97.7 90 24 130/62 (84) 97 10/05/18 20:00 Bi-pap 10/05/18 19:52 83 10/05/18 18:45 Bi-pap 30 10/05/18 18:45 96 Bi-pap 30 10/05/18 18:45 84 27 96 Facial 30 10/05/18 17:44 94 22 98 Facial 30 10/05/18 16:00 95 10/05/18 16:00 Nasal Cannula 3.0 10/05/18 16:00 97.5 97 20 142/64 (90) 97 10/05/18 14:59 97 15 95 Facial 30 10/05/18 13:22 97 25 89 Facial 30 Intake and Output 10/05/18 10/06/18 19:00 07:00 Intake Total 905 ml Output Total 1300 ml 470 ml Balance -395 ml -470 ml Free Water 300 ml Tube Feeding 605 ml Output Urine Total 1300 ml 470 ml # Bowel Movements 4 Laboratory Tests 10/06/18 03:50: White Blood Count 9.0, Red Blood Count 4.02L, Hemoglobin 10.2L, Hematocrit 32.7L , Mean Corpuscular Volume 81, Mean Corpuscular Hemoglobin 25.5L, Mean Corpuscular Hemoglobin Concent 31.3L, Red Cell Distribution Width 18.5H, Platelet Count 176, Mean Platelet Volume 7.8, Neutrophils (%) (Auto) 78.3H, Lymphocytes (%) (Auto) 13.6L, Monocytes (%) (Auto) 5.2, Eosinophils (%) (Auto) 2.0, Basophils (%) (Auto) 1.0, Sodium Level 143, Potassium Level 3.6, Chloride Level 108H, Carbon Dioxide Level 27, Anion Gap 8, Blood Urea Nitrogen 17, Creatinine 0.4L, Estimat Glomerular Filtration Rate , Glucose Level 110H, Calcium Level 9.0 10/06/18 07:05: Arterial Blood pH 7.320L, Arterial Blood Partial Pressure CO2 54.2H, Arterial Blood Partial Pressure O2 76.0, Arterial Blood HCO3 27.3H, Arterial Blood Oxygen Saturation 93.7L, Arterial Blood Base Excess 0.5, Ian Test Positive 10/06/18 10:20: Prothrombin Time 10.7, Prothromb Time International Ratio 1.0, Activated Partial Thromboplast Time 32 Height (Feet): 5 Weight (Pounds): 179 General Appearance: no apparent distress EENT: other - NGT Cardiovascular: normal rate Respiratory/Chest: decreased breath sounds Abdomen: soft Objective no change Danilo Huber MD October 06, 2018 12:19
--- NOTE | 2018-10-06 12:55 | NUR ---
WEEKLY SWALLOW/SPEECH THERAPY SUMMARY: SEEN FOR DYSPHAGIA, SEE SWALLOW EVAL. REPORT. PT STILL ON BIPAP NOW AND THE LAST TWO DAYS. GETTING TUBE FEEDINGS SINCE SHE IS ON BIPAP SO GOALS FOR PO INTAKE NOT MET. GOALS MET FOR STAFF EDUCATED/TRAINED IN ORAL CARE. NOT ABLE TO HAVE MOD BARIUM SWALLOW STUDY AT THIS TIME DUE TO BIPAP AND ON CHRISTOPHER. PLAN: CONTINUE WITH PLAN IN ST SWALLOW EVAL REPORT. CONTINUE WITH NONORAL FEEDINGS AND ORAL CARE.
[2018-10-06 16:00] VITALS: BP 147/67
--- NOTE | 2018-10-06 18:32 | Internal Med Progress Note ---
Subjective Date of Service: October 06, 2018 Physician Name Juan Dutta Attending Physician Yonathan Mendoza MD Current Medications Medications (Trade) Dose Ordered Sig/Ibrahima Route PRN Reason Start Time Stop Time Status Last Admin Dose Admin Acetaminophen (Tylenol) 650 mg Q4H PRN NG Mild Pain (Pain Scale 1-3) 10/01/18 08:45 10/30/18 23:44 10/06/18 16:16 Albuterol/ Ipratropium (Albuterol/ Ipratropium) 3 ml Q4H PRN HHN Shortness of Breath 10/03/18 11:30 10/08/18 11:29 Cefepime HCl 1 gm/ Dextrose 55 ml @ 110 mls/hr Q24H IVPB 10/06/18 12:00 10/07/18 11:59 10/06/18 11:38 Dextrose (Dextrose 50%) 25 ml Q30M PRN IV Hypoglycemia 09/30/18 23:00 10/17/18 06:59 Dextrose (Dextrose 50%) 50 ml Q30M PRN IV Hypoglycemia 09/30/18 23:00 10/17/18 06:59 Docusate Sodium (Colace) 100 mg TID NG 10/01/18 09:00 10/19/18 08:59 10/06/18 17:58 Folic Acid (Folate) 5 mg DAILY NG 10/01/18 09:00 10/18/18 09:59 10/06/18 08:44 Furosemide (Lasix) 40 mg DAILY IV 10/01/18 09:00 10/26/18 08:59 10/06/18 08:44 Lansoprazole (Prevacid) 30 mg BID NG 10/03/18 18:00 11/02/18 17:59 10/06/18 17:58 Phenol/Menthol (Chloraseptic) 1 spray Q3H PRN ORAL THROAT PAIN 10/01/18 14:00 10/31/18 13:59 10/04/18 06:55 Potassium Chloride (K-Dur) 40 meq DAILY NGT 10/01/18 09:00 10/27/18 12:44 10/06/18 08:43 Vancomycin HCl (Vanco rx to dose) 1 ea DAILY PRN MISC Per rx protocol 10/01/18 09:00 10/25/18 13:14 Vancomycin HCl 750 mg/Sodium Chloride 275 ml @ 183.333 mls/hr Q12HR@0400,1600 IVPB 10/02/18 16:00 10/08/18 15:59 10/06/18 16:15 Allergies: Coded Allergies: PIPERACILLIN (Unverified Allergy, Unknown, 05/21/18) tolerates cephalosporins TAZOBACTAM (Unverified Allergy, Unknown, 03/10/18) ROS Limited/Unobtainable: No Constitutional: Reports: no symptoms HEENT: Reports: no symptoms Cardiovascular: Reports: no symptoms Respiratory: Reports: no symptoms Gastrointestinal/Abdominal: Reports: no symptoms Genitourinary: Reports: no symptoms Neurologic/Psychiatric: Reports: no symptoms Subjective 77 YO F admitted for respiratory distress. Now left lung opacification. Extubated 09/28/18. Cover for Int Med-DR Mendoza. CHRISTOPHER. Objective Last Vital Signs Date Time Temp Pulse Resp B/P (MAP) Pulse Ox O2 Delivery O2 Flow Rate FiO2 10/06/18 18:06 97.8 10/06/18 16:00 Nasal Cannula 2.0 10/06/18 16:00 87 34 147/67 (93) 95 10/06/18 07:08 30 Laboratory Tests Test 10/06/18 03:50 10/06/18 07:05 10/06/18 10:20 White Blood Count 9.0 K/UL (4.8-10.8) Red Blood Count 4.02 M/UL (4.20-5.40) L Hemoglobin 10.2 G/DL (12.0-16.0) L Hematocrit 32.7 % (37.0-47.0) L Mean Corpuscular Volume 81 FL (80-99) Mean Corpuscular Hemoglobin 25.5 PG (27.0-31.0) L Mean Corpuscular Hemoglobin Concent 31.3 G/DL (32.0-36.0) L Red Cell Distribution Width 18.5 % (11.6-14.8) H Platelet Count 176 K/UL (150-450) Mean Platelet Volume 7.8 FL (6.5-10.1) Neutrophils (%) (Auto) 78.3 % (45.0-75.0) H Lymphocytes (%) (Auto) 13.6 % (20.0-45.0) L Monocytes (%) (Auto) 5.2 % (1.0-10.0) Eosinophils (%) (Auto) 2.0 % (0.0-3.0) Basophils (%) (Auto) 1.0 % (0.0-2.0) Sodium Level 143 MMOL/L (136-145) Potassium Level 3.6 MMOL/L (3.5-5.1) Chloride Level 108 MMOL/L (98-107) H Carbon Dioxide Level 27 MMOL/L (21-32) Anion Gap 8 mmol/L (5-15) Blood Urea Nitrogen 17 mg/dL (7-18) Creatinine 0.4 MG/DL (0.55-1.30) L Estimat Glomerular Filtration Rate mL/min (>60) Glucose Level 110 MG/DL (74-106) H Calcium Level 9.0 MG/DL (8.5-10.1) Arterial Blood pH 7.320 (7.350-7.450) Arterial Blood Partial Pressure CO2 54.2 mmHg (35.0-45.0) H Arterial Blood Partial Pressure O2 76.0 mmHg (75.0-100.0) Arterial Blood HCO3 27.3 mmol/L (22.0-26.0) H Arterial Blood Oxygen Saturation 93.7 % (95-100) L Arterial Blood Base Excess 0.5 (-2-2) Ian Test Positive Prothrombin Time 10.7 SEC (9.30-11.50) Prothromb Time International Ratio 1.0 (0.9-1.1) Activated Partial Thromboplast Time 32 SEC (23-33) Intake and Output 10/05/18 10/06/18 19:00 07:00 Intake Total 905 ml Output Total 1300 ml 470 ml Balance -395 ml -470 ml Free Water 300 ml Tube Feeding 605 ml Output Urine Total 1300 ml 470 ml # Bowel Movements 4 Objective PHYSICAL EXAMINATION: GENERAL: The patient is a well-developed and well-nourished white female, who is in moderate respiratory distress. HEENT: Eyes, pupils are equal and responsive to light and accommodation. Extraocular movements are intact. NECK: Supple without lymphadenopathy. CHEST: Nasal Canula; Few rales in bilateral bases, otherwise, Lungs are clear to auscultation bilaterally without wheezes CARDIOVASCULAR: Regular rhythm and rate. S1 and S2 normal without murmurs, rubs, or gallops. ABDOMEN: Soft, nontender, and nondistended. Positive bowel sounds. No evidence of hepatosplenomegaly. Currently, no rebound or guarding noted. EXTREMITIES: Negative for clubbing, cyanosis, or edema. RECTAL/GENITAL: Refused. NEUROLOGIC: Cranial nerves II through XII are grossly intact without focal deficits. Motor strength is 5/5 bilaterally. Deep tendon reflexes are 2+ plantar. Assessment/Plan Assessment/Plan ASSESSMENT: This is a 77-year-old white female with: 1. Shortness of breath. 2. Hypoxia. 3. Acute on chronic congestive heart failure. 4. Atrial flutter. 5. Hyponatremia. 6. Chronic obstructive pulmonary disease. 7. Coronary artery disease. 8. Hypertension. 9. Seizure disorder. 10. Paranoid schizophrenia. 11. Intraventricular pacemaker 12. left lung opacification-collapse per CT TREATMENT: 1. Shortness of breath/congestive heart failure. Extubated 09/28/[address] Sierra. Cardiologyconsultation has been obtained with Dr. Milian. The patient is currently receiving intravenous Lasix. We will follow recommendation of Cardiology. BNP is elevated at over greater than 5000. An echocardiogram is pending. 2. Atrial flutter. Continue Eliquis as above. 3. Hyponatremia. The patient is currently receiving intravenous fluids. 4. Chronic obstructive pulmonary disease. Continue DuoNeb nebulized as above. The patient was initially placed on BiPAP in the emergency room. A Pulmonary consultation has been obtained with Dr. Mendel Sierra. 5. Hypertension. Continue Lasix as above. 6. Seizure disorder. The patient is currently off antiseizure medication. 7. Paranoid schizophrenia. Continue Risperdal as above. 8. antibiotic=cefepime and Juan Gamboa MD October 06, 2018 18:32
--- NOTE | 2018-10-06 19:10 | NUR ---
NURSE NOTES: Report received from CHARLETTE Madison. Observed pt lying on the bed, denies any pain at this time. A/O x3. A-Fib with HR of 90s noted on manager compliance. On 2L NC, saturating at 95%. NGT intact and patent, running Glucerna 1.2 at 55cc/hr. F/C intact and patent. IV on R FA 22G, asymptomatic, TKO. L FA 22G, intact and SL. Bed in the lowest position. Side rails padded and up x3. Call light within reach. Will continue to monitor.
--- NOTE | 2018-10-06 19:30 | NUR ---
HAND-OFF: Report given to Suzy Plata RN.
[2018-10-06 20:00] VITALS: BP 139/72
--- NOTE | 2018-10-06 22:00 | NUR ---
NURSE NOTES: Started Bipap on 2129, 14/10, 30% and pt took it off and refused it at this time. Put pt back on NC 3L, saturating at 93%. Will continue to monitor.
[2018-10-07] VITALS: BP 141/76
--- NOTE | 2018-10-07 00:40 | NUR ---
NURSE NOTES: Observed pt sleeping on the bed. No signs of acute distress noted at this time. Pt keeps trying to take off the gown. Reposition done. Oral care done. Afib with HR of 90s noted on religious education coordinator. On NC 3L, saturating at 93%. Will continue to monitor.
--- NOTE | 2018-10-07 02:22 | NUR ---
NURSE NOTES: Pt is on Bipap 15/5, 30%, saturating at 94%. Pt appears calm and comfortable, sleeping on the bed. Addendum: 10/07/18 at 0224 by Destiny Plata RN Afib with HR of 76 on piano mechanic. Reposition done. Will continue to monitor.
[2018-10-07] MEDS: Vancomycin 750mg/NS 275ml IVPB SCH ×4 (03:50→16:41)
[2018-10-07 04:00] VITALS: BP 150/68
[2018-10-07 05:30] LABS: BASOPHILS % (AUTO) 1.9 % (0.0-2.0); EOSINOPHILS % (AUTO) 1.6 % (0.0-3.0); HEMATOCRIT 34.3 % (37.0-47.0); HEMOGLOBIN 10.7 G/DL (12.0-16.0); LYMPHOCYTES % (AUTO) 8.4 % (20.0-45.0); MEAN CORPUSCULAR VOLUME 82 FL (80-99); MONOCYTES % (AUTO) 7.5 % (1.0-10.0); NEUTROPHILS % (AUTO) 80.5 % (45.0-75.0); PLATELET COUNT 208 K/UL (150-450); RED CELL DISTRIBUTION WIDTH 18.1 % (11.6-14.8); WHITE BLOOD COUNT 8.7 K/UL (4.8-10.8)
[2018-10-07 06:04] LABS: ALANINE AMINOTRANSFERASE 36 U/L (12-78); ALBUMIN 2.7 G/DL (3.4-5.0); ALBUMIN/GLOBULIN RATIO 0.8 (1.0-2.7); ALKALINE PHOSPHATASE 71 U/L (46-116); ANION GAP 8 mmol/L (5-15); ASPARTATE AMINO TRANSFERASE 25 U/L (15-37); BILIRUBIN,TOTAL 0.3 MG/DL (0.2-1.0); BLOOD UREA NITROGEN 16 mg/dL (7-18); CALCIUM 8.8 MG/DL (8.5-10.1); CARBON DIOXIDE 30 MMOL/L (21-32); CHLORIDE 110 MMOL/L (98-107); CREATININE 0.4 MG/DL (0.55-1.30); POTASSIUM 4.4 MMOL/L (3.5-5.1); SODIUM 148 MMOL/L (136-145)
--- NOTE | 2018-10-07 07:28 | NUR ---
NURSE NOTES: Received pt from CHARLETTE Dixon in stable condition with no cardiopulmonary distress noted. Pt is asleep in bed on 2L O2 via NC. NGT noted in R nare running Glucerna 1.2 at 55cc/hr. Pt has a F/C draining yellow urine. R hand 22g IV noted. Skin alterations are noted. Bed is in lowest position with side rails up x 2 and padded per seizure precaution, call light within reach, will continue to monitor pt.
--- NOTE | 2018-10-07 07:30 | NUR ---
HAND-OFF: Report given to CHARLETTE Piper.
[2018-10-07 08:00] VITALS: BP 149/65
[2018-10-07] MEDS: Docusate 100mg/10ml Liq NG SCH ×2 (08:25→12:19)
--- NOTE | 2018-10-07 09:13 | NUR ---
RADIOLOGY DEPT., CHEST X-RAY DONE.-P.DYE
--- NOTE | 2018-10-07 10:43 | Pulmonolgy Critical Care Note ---
Critical Care - Asmt/Plan Problems: (1) Respiratory failure, acute (2) Collapse of left lung Assessment & Plan: resolved (3) Atrial fibrillation with RVR (4) Hyponatremia (5) COPD (chronic obstructive pulmonary disease) (6) Anemia, chronic disease Respiratory: monitor respiratory rate, adjust FIO2, CXR Cardiac: continue to monitor HR/BP Renal: F/U I&O, keep IV fluid, check electrolytes Infectious Disease: check cultures, continue antibiotics Gastrointestinal: continue feedings/current rate Endocrine: monitor blood sugar, continue sliding scale insulin Hematologic: monitor H/H, transfuse if hgb<8.5 Neurologic: PRN Ativan, PRN Morphine, keep patient comfortable Affect: PRN ativan Disposition: keep in ICU Time Spent (Minutes): 40 Notes Reviewed: assembly worker, cardio, renal Discussed with: nurses, consultants, lining caserops manager - Objective Last 24 Hour Vital Signs Date Time Temp Pulse Resp B/P (MAP) Pulse Ox O2 Delivery O2 Flow Rate FiO2 10/07/18 07:18 Nasal Cannula 2.0 28 10/07/18 07:18 98 Nasal Cannula 2.0 28 10/07/18 07:18 82 18 Nasal Cannula 2.0 28 10/07/18 04:00 98.3 87 28 150/68 (95) 95 10/07/18 04:00 86 10/07/18 04:00 Nasal Cannula 2.0 10/07/18 03:07 87 27 92 Facial 30 10/07/18 01:30 80 20 94 Full Face 30 10/07/18 00:00 87 10/07/18 00:00 97.0 84 24 141/76 (97) 99 10/07/18 00:00 Nasal Cannula 2.0 10/06/18 21:22 86 35 94 Facial 30 10/06/18 20:00 97.7 84 28 139/72 (94) 96 10/06/18 20:00 Nasal Cannula 2.0 28 10/06/18 20:00 96 Nasal Cannula 2.0 28 10/06/18 20:00 87 10/06/18 20:00 Nasal Cannula 2.0 10/06/18 18:06 97.8 10/06/18 16:00 Nasal Cannula 2.0 10/06/18 16:00 98.3 87 34 147/67 (93) 95 10/06/18 16:00 91 10/06/18 15:14 91 10/06/18 12:35 90 10/06/18 12:00 Nasal Cannula 2.0 10/06/18 12:00 97.8 89 29 139/68 (91) 96 Status: awake Condition: critical HEENT: atraumatic, normocephalic Heart: HR/BP stable Abdomen: soft, non-tender Extremities: no C/C/E, edema Critical Care - Subjective ROS Limited/Unobtainable: Yes Condition: critical EKG Rhythm: Sinus Rhythm FI02: 28 Vent Support Breath Rate: 14 Vent Support Mode: BiLevel Vent Tidal Volume: 600 Sputum Amount: None PEEP: 5.0 PIP: 14 Tube Feeding Amount: 55 I&O: Intake and Output 10/06/18 10/07/18 18:59 06:59 Intake Total 1055.000 ml 610 ml Output Total 1250 ml 400 ml Balance -195.000 ml 210 ml Free Water 0 ml IV Total 330.000 ml Tube Feeding 605 ml 440 ml Blood Product 110 ml Other 120 ml 60 ml Output Urine Total 1250 ml 400 ml CXR: no change Labs: Laboratory Tests Test 10/07/18 03:10 White Blood Count 8.7 K/UL (4.8-10.8) Red Blood Count 4.20 M/UL (4.20-5.40) Hemoglobin 10.7 G/DL (12.0-16.0) L Hematocrit 34.3 % (37.0-47.0) L Mean Corpuscular Volume 82 FL (80-99) Mean Corpuscular Hemoglobin 25.5 PG (27.0-31.0) L Mean Corpuscular Hemoglobin Concent 31.2 G/DL (32.0-36.0) L Red Cell Distribution Width 18.1 % (11.6-14.8) H Platelet Count 208 K/UL (150-450) Mean Platelet Volume 7.8 FL (6.5-10.1) Neutrophils (%) (Auto) 80.5 % (45.0-75.0) H Lymphocytes (%) (Auto) 8.4 % (20.0-45.0) L Monocytes (%) (Auto) 7.5 % (1.0-10.0) Eosinophils (%) (Auto) 1.6 % (0.0-3.0) Basophils (%) (Auto) 1.9 % (0.0-2.0) Sodium Level 148 MMOL/L (136-145) H Potassium Level 4.4 MMOL/L (3.5-5.1) Chloride Level 110 MMOL/L (98-107) H Carbon Dioxide Level 30 MMOL/L (21-32) Anion Gap 8 mmol/L (5-15) Blood Urea Nitrogen 16 mg/dL (7-18) Creatinine 0.4 MG/DL (0.55-1.30) L Estimat Glomerular Filtration Rate mL/min (>60) Glucose Level 118 MG/DL (74-106) H Uric Acid 3.4 MG/DL (2.6-7.2) Calcium Level 8.8 MG/DL (8.5-10.1) Phosphorus Level 4.0 MG/DL (2.5-4.9) Magnesium Level 2.1 MG/DL (1.8-2.4) Total Bilirubin 0.3 MG/DL (0.2-1.0) Aspartate Amino Transf (AST/SGOT) 25 U/L (15-37) Alanine Aminotransferase (ALT/SGPT) 36 U/L (12-78) Alkaline Phosphatase 71 U/L (46-116) C-Reactive Protein, Quantitative 2.3 mg/dL (0.00-0.90) H Pro-B-Type Natriuretic Peptide 1758 pg/mL (0-125) H Total Protein 6.3 G/DL (6.4-8.2) L Albumin 2.7 G/DL (3.4-5.0) L Globulin 3.6 g/dL Albumin/Globulin Ratio 0.8 (1.0-2.7) L Mendel Sierra MD October 07, 2018 10:43
--- NOTE | 2018-10-07 11:03 | Nephrology Progress Note ---
Assessment/Plan Problem List: (1) Respiratory failure, acute Assessment: Co2 Retainer (2) Hyponatremia (3) Seizure disorder (4) Acute diastolic CHF (congestive heart failure) (5) COPD (chronic obstructive pulmonary disease) (6) Pacemaker Assessment Now extubated HypoNatremia ? Etiology: depletional / Diuretics / SIADH ... bronchoscopy for left lung collapse Acute respiratory failure on BIPAP- COPD Encephalopathy due to high CO2 Pacemaker UTI Low MCV Anemia Hypoalbuminemia EjFx 55% last admission h/o Atfib Plan Per pulmonary K supplement as needed now extubated since 09/28 López PRN lasix IV iron monitor lytes Anemia clinton per orders Subjective ROS Limited/Unobtainable: No Objective Objective Last 24 Hour Vital Signs Date Time Temp Pulse Resp B/P (MAP) Pulse Ox O2 Delivery O2 Flow Rate FiO2 10/07/18 08:00 Nasal Cannula 2.0 10/07/18 08:00 99.0 89 28 149/65 (93) 100 10/07/18 07:18 Nasal Cannula 2.0 28 10/07/18 07:18 98 Nasal Cannula 2.0 28 10/07/18 07:18 82 18 Nasal Cannula 2.0 28 10/07/18 04:00 98.3 87 28 150/68 (95) 95 10/07/18 04:00 86 10/07/18 04:00 Nasal Cannula 2.0 10/07/18 03:07 87 27 92 Facial 30 10/07/18 01:30 80 20 94 Full Face 30 10/07/18 00:00 87 10/07/18 00:00 97.0 84 24 141/76 (97) 99 10/07/18 00:00 Nasal Cannula 2.0 10/06/18 21:22 86 35 94 Facial 30 10/06/18 20:00 97.7 84 28 139/72 (94) 96 10/06/18 20:00 Nasal Cannula 2.0 28 10/06/18 20:00 96 Nasal Cannula 2.0 28 10/06/18 20:00 87 10/06/18 20:00 Nasal Cannula 2.0 10/06/18 18:06 97.8 10/06/18 16:00 Nasal Cannula 2.0 10/06/18 16:00 98.3 87 34 147/67 (93) 95 10/06/18 16:00 91 10/06/18 15:14 91 10/06/18 12:35 90 10/06/18 12:00 Nasal Cannula 2.0 10/06/18 12:00 97.8 89 29 139/68 (91) 96 Intake and Output 10/06/18 10/07/18 18:59 06:59 Intake Total 1055.000 ml 610 ml Output Total 1250 ml 400 ml Balance -195.000 ml 210 ml Free Water 0 ml IV Total 330.000 ml Tube Feeding 605 ml 440 ml Blood Product 110 ml Other 120 ml 60 ml Output Urine Total 1250 ml 400 ml Laboratory Tests 10/07/18 03:10: White Blood Count 8.7, Red Blood Count 4.20, Hemoglobin 10.7L, Hematocrit 34.3L , Mean Corpuscular Volume 82, Mean Corpuscular Hemoglobin 25.5L, Mean Corpuscular Hemoglobin Concent 31.2L, Red Cell Distribution Width 18.1H, Platelet Count 208, Mean Platelet Volume 7.8, Neutrophils (%) (Auto) 80.5H, Lymphocytes (%) (Auto) 8.4L, Monocytes (%) (Auto) 7.5, Eosinophils (%) (Auto) 1.6, Basophils (%) (Auto) 1.9, Sodium Level 148H, Potassium Level 4.4, Chloride Level 110H, Carbon Dioxide Level 30, Anion Gap 8, Blood Urea Nitrogen 16, Creatinine 0.4L, Estimat Glomerular Filtration Rate , Glucose Level 118H, Uric Acid 3.4, Calcium Level 8.8, Phosphorus Level 4.0, Magnesium Level 2.1, Total Bilirubin 0.3, Aspartate Amino Transf (AST/SGOT) 25, Alanine Aminotransferase ( ALT/SGPT) 36, Alkaline Phosphatase 71, C-Reactive Protein, Quantitative 2.3H, Pro-B-Type Natriuretic Peptide 1758H, Total Protein 6.3L, Albumin 2.7L, Globulin 3.6, Albumin/Globulin Ratio 0.8L Height (Feet): 5 Weight (Pounds): 175 EENT: other - NGT Respiratory/Chest: decreased breath sounds Abdomen: soft Objective no change Daniol Huber MD October 07, 2018 11:03
--- NOTE | 2018-10-07 11:16 | Cardiac Electrophysiology PN ---
Assessment/Plan Assessment/Plan 1. Status post lead-less intracardiac Medtronic pacer with Nl Fx 2. Chronic atrial fibrillation, stable off any AVN anil Eliquis held for possible tracheostomy 3. Severe COPD. On Solu-Medrol. 4. Diastolic congestive heart failure. 5. Diabetes. 6. S/P resp failure for Left lung collapse. Extubated.Off and on BIPAP. NPO for possible tracheostomy, but breathing much better today Off Eliquis now 7. Dysphagia, failed swallow eval . DW RN and Dr Sierra. Subjective Subjective In atrial fib with controlled rate. More alert today. NPO for possible tracheostomy.RN at bedside Objective Last 24 Hour Vital Signs Date Time Temp Pulse Resp B/P (MAP) Pulse Ox O2 Delivery O2 Flow Rate FiO2 10/07/18 08:00 Nasal Cannula 2.0 10/07/18 08:00 88 10/07/18 08:00 99.0 89 28 149/65 (93) 100 10/07/18 07:18 Nasal Cannula 2.0 28 10/07/18 07:18 98 Nasal Cannula 2.0 28 10/07/18 07:18 82 18 Nasal Cannula 2.0 28 10/07/18 04:00 98.3 87 28 150/68 (95) 95 10/07/18 04:00 86 10/07/18 04:00 Nasal Cannula 2.0 10/07/18 03:07 87 27 92 Facial 30 10/07/18 01:30 80 20 94 Full Face 30 10/07/18 00:00 87 10/07/18 00:00 97.0 84 24 141/76 (97) 99 10/07/18 00:00 Nasal Cannula 2.0 10/06/18 21:22 86 35 94 Facial 30 10/06/18 20:00 97.7 84 28 139/72 (94) 96 10/06/18 20:00 Nasal Cannula 2.0 28 10/06/18 20:00 96 Nasal Cannula 2.0 28 10/06/18 20:00 87 10/06/18 20:00 Nasal Cannula 2.0 10/06/18 18:06 97.8 10/06/18 16:00 Nasal Cannula 2.0 10/06/18 16:00 98.3 87 34 147/67 (93) 95 10/06/18 16:00 91 10/06/18 15:14 91 10/06/18 12:35 90 10/06/18 12:00 Nasal Cannula 2.0 10/06/18 12:00 97.8 89 29 139/68 (91) 96 Intake and Output 10/06/18 10/07/18 18:59 06:59 Intake Total 1055.000 ml 610 ml Output Total 1250 ml 400 ml Balance -195.000 ml 210 ml Free Water 0 ml IV Total 330.000 ml Tube Feeding 605 ml 440 ml Blood Product 110 ml Other 120 ml 60 ml Output Urine Total 1250 ml 400 ml Laboratory Tests Test 10/07/18 03:10 White Blood Count 8.7 K/UL (4.8-10.8) Red Blood Count 4.20 M/UL (4.20-5.40) Hemoglobin 10.7 G/DL (12.0-16.0) L Hematocrit 34.3 % (37.0-47.0) L Mean Corpuscular Volume 82 FL (80-99) Mean Corpuscular Hemoglobin 25.5 PG (27.0-31.0) L Mean Corpuscular Hemoglobin Concent 31.2 G/DL (32.0-36.0) L Red Cell Distribution Width 18.1 % (11.6-14.8) H Platelet Count 208 K/UL (150-450) Mean Platelet Volume 7.8 FL (6.5-10.1) Neutrophils (%) (Auto) 80.5 % (45.0-75.0) H Lymphocytes (%) (Auto) 8.4 % (20.0-45.0) L Monocytes (%) (Auto) 7.5 % (1.0-10.0) Eosinophils (%) (Auto) 1.6 % (0.0-3.0) Basophils (%) (Auto) 1.9 % (0.0-2.0) Sodium Level 148 MMOL/L (136-145) H Potassium Level 4.4 MMOL/L (3.5-5.1) Chloride Level 110 MMOL/L (98-107) H Carbon Dioxide Level 30 MMOL/L (21-32) Anion Gap 8 mmol/L (5-15) Blood Urea Nitrogen 16 mg/dL (7-18) Creatinine 0.4 MG/DL (0.55-1.30) L Estimat Glomerular Filtration Rate mL/min (>60) Glucose Level 118 MG/DL (74-106) H Uric Acid 3.4 MG/DL (2.6-7.2) Calcium Level 8.8 MG/DL (8.5-10.1) Phosphorus Level 4.0 MG/DL (2.5-4.9) Magnesium Level 2.1 MG/DL (1.8-2.4) Total Bilirubin 0.3 MG/DL (0.2-1.0) Aspartate Amino Transf (AST/SGOT) 25 U/L (15-37) Alanine Aminotransferase (ALT/SGPT) 36 U/L (12-78) Alkaline Phosphatase 71 U/L (46-116) C-Reactive Protein, Quantitative 2.3 mg/dL (0.00-0.90) H Pro-B-Type Natriuretic Peptide 1758 pg/mL (0-125) H Total Protein 6.3 G/DL (6.4-8.2) L Albumin 2.7 G/DL (3.4-5.0) L Globulin 3.6 g/dL Albumin/Globulin Ratio 0.8 (1.0-2.7) L Objective HEAD AND NECK: Mild JVD. NG tube is in. LUNGS: Coarse rhonchi bilaterally. CARDIOVASCULAR: Irregular S1 and S2 with no gallop. ABDOMEN: Soft. EXTREMITIES: No edema. Yohan Milian MD October 07, 2018 11:16
--- NOTE | 2018-10-07 11:49 | NUR ---
Social Service Note SW met with patient to discuss plan of care. Patient with multiple admissions with respiratory related issues. Patient has also fluctuates between Full Code and DNR/DNI. SW discussed possible trach placement with g-tube and palliative/comfort focused care approach. Patient verbalized DNR, Comfort-focused treatment, hospice care and no artificial means of nutrition. Patient signed POLST indicating these wishes. Dr. Sierra also met with patient and confirmed patient's request. Patient will return to [facility]. Support provided to patient.
[2018-10-07 12:00] VITALS: BP 147/64
--- NOTE | 2018-10-07 12:18 | Diagnostic Imaging Report ---
Indication: Dyspnea Technique: XRAY Chest 1v Comparison: 09/05/2018 Findings: Enteric tube remains in place. Heart size and mediastinal contours stable. Atherosclerotic calcifications and dense mitral calcifications again noted. An implantable loop recorder is again seen. Mild increased interstitial markings again noted. Suspected more dense retrocardiac opacity. No pneumothorax. No acute osseous abnormality. Impression: No significant interval change compared to the prior exam. Initial prominence which may be related to mild congestive changes/CHF. Apparent retrocardiac densities possibly artifactual from overlying large heart versus related to airspace disease or pleural effusion.
--- NOTE | 2018-10-07 12:55 | NUR ---
SWALLOW/SPEECH THERAPY NOTE: SUBJECTIVE: ALERT AND EXPRESSES NEEDS. DNR AND WANTS NGT OUT AND WANTS TO EAT/DRINK BY MOUTH. OBJECTIVE/ASSESSMENT: 16 ROMANIAN NGT REMOVED (PER PT REQUEST FOR QUALITY OF LIFE PURPOSES) AND CARDIAC PUREED AND NECTAR THICK LIQUIDS SENT. PER RN, PT COUGHS WITH NECTAR THICK LIQUIDS (LIKELY CUP LEVEL) AT TIMES. REASSESSED SWALLOW PER MED REQUEST. PATIENT ON 2 LITERS 02 NC. PER ACID EXTRACTOR PERIODS OF HIGH RR TO 30 BUT LOW TO 18 LATELY MORE . PO TRIALS WITH THIN LIQUID VIA TSP UNSUCCESSFUL, APPEARS TO COUGH AFTER SWALLOW BUT COULD BE BEFORE. NO OVERT S/S OF ASPIRATION WITH NECTAR THICK LIQUIDS WITH CHIN TUCKED (NEEDS MAX CUES). GETS TO SOB WITH EFFORTFUL BREATH HOLD AND WHEN TAKES UP TO 3 SWALLOWS IN A ROW. NEEDS TO REST. PUDDING/APPLESAUCE VIA TSP, SLOWER TRANSIT TIMES W/O ORAL RESIDUE AND NOR S/S OF OVERT ASP (HAS SILENT ASP RISK DUE TO CVA HISTORY). HAS MANY FOOD PREFERENCES (DID NOT WANT ANY OF THE PUREED FOOD. PLAN: CONTINUE WITH PO BUT DOWNGRADE TO CARDIAC LIQUIFIED PUREED LIKE NECTAR THICK SOUP CONSISTENCY, NO THIN LIQUIDS WITH POSTED ASP/REFLUX PRECAUTIONS AND 1 TO 1 FEEDING. COMPLETED CALORIE COUNT AND SEND HIGH NEENA SUP PER RD. EDUCATED/TRAINED RN (JAJA) AND ACID EXTRACTOR (PHUONG) IN POSTED ASP/REFLUX PRECAUTIONS. D/W Addendum: 10/07/18 at 1257 by ANISH YOUSSEF TURBINE MEASUREMENTS ENGINEER PER RNDR AGGARWAL CANCELLED MOD BARIUM SWALLOW STUDY.
--- NOTE | 2018-10-07 14:01 | Surgery Progress Note ---
Surgery Progress Note Subjective Additional Comments no acute events. doing well. code status changed. surgery cancelled. Objective Last 24 Hour Vital Signs Date Time Temp Pulse Resp B/P (MAP) Pulse Ox O2 Delivery O2 Flow Rate FiO2 10/07/18 12:18 Nasal Cannula 2.0 10/07/18 12:00 85 10/07/18 12:00 Nasal Cannula 2.0 10/07/18 12:00 99.7 84 28 147/64 (91) 100 10/07/18 08:00 Nasal Cannula 2.0 10/07/18 08:00 88 10/07/18 08:00 99.0 89 28 149/65 (93) 100 10/07/18 07:18 Nasal Cannula 2.0 28 10/07/18 07:18 98 Nasal Cannula 2.0 28 10/07/18 07:18 82 18 Nasal Cannula 2.0 28 10/07/18 04:00 98.3 87 28 150/68 (95) 95 10/07/18 04:00 86 10/07/18 04:00 Nasal Cannula 2.0 10/07/18 03:07 87 27 92 Facial 30 10/07/18 01:30 80 20 94 Full Face 30 10/07/18 00:00 87 10/07/18 00:00 97.0 84 24 141/76 (97) 99 10/07/18 00:00 Nasal Cannula 2.0 10/06/18 21:22 86 35 94 Facial 30 10/06/18 20:00 97.7 84 28 139/72 (94) 96 10/06/18 20:00 Nasal Cannula 2.0 28 10/06/18 20:00 96 Nasal Cannula 2.0 28 10/06/18 20:00 87 10/06/18 20:00 Nasal Cannula 2.0 10/06/18 18:06 97.8 10/06/18 16:00 Nasal Cannula 2.0 10/06/18 16:00 98.3 87 34 147/67 (93) 95 10/06/18 16:00 91 10/06/18 15:14 91 I&O Intake and Output 10/06/18 10/07/18 19:00 07:00 Intake Total 1170.000 ml 580 ml Output Total 1250 ml 400 ml Balance -80.000 ml 180 ml Free Water 30 ml IV Total 330.000 ml Tube Feeding 660 ml 440 ml Blood Product 110 ml Other 180 ml Output Urine Total 1250 ml 400 ml Drains: none Cardiovascular: RSR Respiratory: clear, decreased breath sounds Abdomen: soft, flat, non-tender, present bowel sounds Extremities: no tenderness, no cyanosis Laboratory Tests Test 10/07/18 03:10 White Blood Count 8.7 K/UL (4.8-10.8) Red Blood Count 4.20 M/UL (4.20-5.40) Hemoglobin 10.7 G/DL (12.0-16.0) L Hematocrit 34.3 % (37.0-47.0) L Mean Corpuscular Volume 82 FL (80-99) Mean Corpuscular Hemoglobin 25.5 PG (27.0-31.0) L Mean Corpuscular Hemoglobin Concent 31.2 G/DL (32.0-36.0) L Red Cell Distribution Width 18.1 % (11.6-14.8) H Platelet Count 208 K/UL (150-450) Mean Platelet Volume 7.8 FL (6.5-10.1) Neutrophils (%) (Auto) 80.5 % (45.0-75.0) H Lymphocytes (%) (Auto) 8.4 % (20.0-45.0) L Monocytes (%) (Auto) 7.5 % (1.0-10.0) Eosinophils (%) (Auto) 1.6 % (0.0-3.0) Basophils (%) (Auto) 1.9 % (0.0-2.0) Sodium Level 148 MMOL/L (136-145) H Potassium Level 4.4 MMOL/L (3.5-5.1) Chloride Level 110 MMOL/L (98-107) H Carbon Dioxide Level 30 MMOL/L (21-32) Anion Gap 8 mmol/L (5-15) Blood Urea Nitrogen 16 mg/dL (7-18) Creatinine 0.4 MG/DL (0.55-1.30) L Estimat Glomerular Filtration Rate mL/min (>60) Glucose Level 118 MG/DL (74-106) H Uric Acid 3.4 MG/DL (2.6-7.2) Calcium Level 8.8 MG/DL (8.5-10.1) Phosphorus Level 4.0 MG/DL (2.5-4.9) Magnesium Level 2.1 MG/DL (1.8-2.4) Total Bilirubin 0.3 MG/DL (0.2-1.0) Aspartate Amino Transf (AST/SGOT) 25 U/L (15-37) Alanine Aminotransferase (ALT/SGPT) 36 U/L (12-78) Alkaline Phosphatase 71 U/L (46-116) C-Reactive Protein, Quantitative 2.3 mg/dL (0.00-0.90) H Pro-B-Type Natriuretic Peptide 1758 pg/mL (0-125) H Total Protein 6.3 G/DL (6.4-8.2) L Albumin 2.7 G/DL (3.4-5.0) L Globulin 3.6 g/dL Albumin/Globulin Ratio 0.8 (1.0-2.7) L Plan Problems: (1) Respiratory failure, acute Assessment & Plan: Respiratory insufficiency requiring prolonged positive pressure support discussed care plan with medical team, grants assistant, and patient she is a candidate for trach given current condition and positive pressure and oxygen requirements she cannot eat because when bipap removed she desaturates. she wants to eat again. mask is uncomfortable trach indicated and recommended changed code status surgery called okay to d/c from surgical standpoint Basil Gonzalez October 07, 2018 14:01
--- NOTE | 2018-10-07 14:45 | Cardiology Report ---
APPROVED REPORT EKG Measurement Heart [id number] Atrial fibrillation Left axis deviation Abnormal ECG
[2018-10-07 16:00] VITALS: BP 155/70
--- NOTE | 2018-10-07 17:56 | Internal Med Progress Note ---
Subjective Date of Service: October 07, 2018 Physician Name Juan Dutta Attending Physician Yonathan Mendoza MD Current Medications Medications (Trade) Dose Ordered Sig/Ibrahima Route PRN Reason Start Time Stop Time Status Last Admin Dose Admin Acetaminophen (Tylenol) 650 mg Q4H PRN NG Mild Pain (Pain Scale 1-3) 10/01/18 08:45 10/30/18 23:44 10/06/18 16:16 Albuterol/ Ipratropium (Albuterol/ Ipratropium) 3 ml Q4H PRN HHN Shortness of Breath 10/03/18 11:30 10/08/18 11:29 Dextrose (Dextrose 50%) 25 ml Q30M PRN IV Hypoglycemia 09/30/18 23:00 10/17/18 06:59 Dextrose (Dextrose 50%) 50 ml Q30M PRN IV Hypoglycemia 09/30/18 23:00 10/17/18 06:59 Docusate Sodium (Colace) 100 mg THREE TIMES A DAY ORAL 10/07/18 18:00 11/06/18 17:59 Folic Acid (Folate) 5 mg DAILY NG 10/01/18 09:00 10/18/18 09:59 10/07/18 08:26 Furosemide (Lasix) 20 mg DAILY IV 10/08/18 09:00 11/07/18 08:59 Lansoprazole (Prevacid) 30 mg BID ORAL 10/07/18 18:00 11/06/18 17:59 Phenol/Menthol (Chloraseptic) 1 spray Q3H PRN ORAL THROAT PAIN 10/01/18 14:00 10/31/18 13:59 10/04/18 06:55 Vancomycin HCl (Vanco rx to dose) 1 ea DAILY PRN MISC Per rx protocol 10/01/18 09:00 10/25/18 13:14 Vancomycin HCl 750 mg/Sodium Chloride 275 ml @ 183.333 mls/hr Q12HR@0400,1600 IVPB 10/02/18 16:00 10/08/18 15:59 10/07/18 16:41 Allergies: Coded Allergies: PIPERACILLIN (Unverified Allergy, Unknown, 05/21/18) tolerates cephalosporins TAZOBACTAM (Unverified Allergy, Unknown, 03/10/18) ROS Limited/Unobtainable: No Constitutional: Reports: no symptoms HEENT: Reports: no symptoms Cardiovascular: Reports: no symptoms Respiratory: Reports: shortness of breath Gastrointestinal/Abdominal: Reports: no symptoms Genitourinary: Reports: no symptoms Neurologic/Psychiatric: Reports: no symptoms Subjective 77 YO F admitted for respiratory distress. Now left lung opacification. Extubated 09/28/18. Cover for Int Jose A-DR Mendoza. CHRISTOPHER. Objective Last Vital Signs Date Time Temp Pulse Resp B/P (MAP) Pulse Ox O2 Delivery O2 Flow Rate FiO2 10/07/18 16:00 82 10/07/18 16:00 Nasal Cannula 2.0 10/07/18 12:00 99.7 28 147/64 (91) 100 10/07/18 07:18 28 Laboratory Tests Test 10/07/18 03:10 White Blood Count 8.7 K/UL (4.8-10.8) Red Blood Count 4.20 M/UL (4.20-5.40) Hemoglobin 10.7 G/DL (12.0-16.0) L Hematocrit 34.3 % (37.0-47.0) L Mean Corpuscular Volume 82 FL (80-99) Mean Corpuscular Hemoglobin 25.5 PG (27.0-31.0) L Mean Corpuscular Hemoglobin Concent 31.2 G/DL (32.0-36.0) L Red Cell Distribution Width 18.1 % (11.6-14.8) H Platelet Count 208 K/UL (150-450) Mean Platelet Volume 7.8 FL (6.5-10.1) Neutrophils (%) (Auto) 80.5 % (45.0-75.0) H Lymphocytes (%) (Auto) 8.4 % (20.0-45.0) L Monocytes (%) (Auto) 7.5 % (1.0-10.0) Eosinophils (%) (Auto) 1.6 % (0.0-3.0) Basophils (%) (Auto) 1.9 % (0.0-2.0) Sodium Level 148 MMOL/L (136-145) H Potassium Level 4.4 MMOL/L (3.5-5.1) Chloride Level 110 MMOL/L (98-107) H Carbon Dioxide Level 30 MMOL/L (21-32) Anion Gap 8 mmol/L (5-15) Blood Urea Nitrogen 16 mg/dL (7-18) Creatinine 0.4 MG/DL (0.55-1.30) L Estimat Glomerular Filtration Rate mL/min (>60) Glucose Level 118 MG/DL (74-106) H Uric Acid 3.4 MG/DL (2.6-7.2) Calcium Level 8.8 MG/DL (8.5-10.1) Phosphorus Level 4.0 MG/DL (2.5-4.9) Magnesium Level 2.1 MG/DL (1.8-2.4) Total Bilirubin 0.3 MG/DL (0.2-1.0) Aspartate Amino Transf (AST/SGOT) 25 U/L (15-37) Alanine Aminotransferase (ALT/SGPT) 36 U/L (12-78) Alkaline Phosphatase 71 U/L (46-116) C-Reactive Protein, Quantitative 2.3 mg/dL (0.00-0.90) H Pro-B-Type Natriuretic Peptide 1758 pg/mL (0-125) H Total Protein 6.3 G/DL (6.4-8.2) L Albumin 2.7 G/DL (3.4-5.0) L Globulin 3.6 g/dL Albumin/Globulin Ratio 0.8 (1.0-2.7) L Intake and Output 10/06/18 10/07/18 19:00 07:00 Intake Total 1170.000 ml 580 ml Output Total 1250 ml 400 ml Balance -80.000 ml 180 ml Free Water 30 ml IV Total 330.000 ml Tube Feeding 660 ml 440 ml Blood Product 110 ml Other 180 ml Output Urine Total 1250 ml 400 ml Objective PHYSICAL EXAMINATION: GENERAL: The patient is a well-developed and well-nourished white female, who is in moderate respiratory distress. HEENT: Eyes, pupils are equal and responsive to light and accommodation. Extraocular movements are intact. NECK: Supple without lymphadenopathy. CHEST: Nasal Canula; Few rales in bilateral bases, otherwise, Lungs are clear to auscultation bilaterally without wheezes CARDIOVASCULAR: Regular rhythm and rate. S1 and S2 normal without murmurs, rubs, or gallops. ABDOMEN: Soft, nontender, and nondistended. Positive bowel sounds. No evidence of hepatosplenomegaly. Currently, no rebound or guarding noted. EXTREMITIES: Negative for clubbing, cyanosis, or edema. RECTAL/GENITAL: Refused. NEUROLOGIC: Cranial nerves II through XII are grossly intact without focal deficits. Motor strength is 5/5 bilaterally. Deep tendon reflexes are 2+ plantar. Assessment/Plan Assessment/Plan ASSESSMENT: This is a 77-year-old white female with: 1. Shortness of breath. 2. Hypoxia. 3. Acute on chronic congestive heart failure. 4. Atrial flutter. 5. Hyponatremia. 6. Chronic obstructive pulmonary disease. 7. Coronary artery disease. 8. Hypertension. 9. Seizure disorder. 10. Paranoid schizophrenia. 11. Intraventricular pacemaker 12. left lung opacification-collapse per CT TREATMENT: 1. Shortness of breath/congestive heart failure. Extubated 09/28/[address] Sierra. Cardiology consultation has been obtained with Dr. Milian. The patient is currently receiving intravenous Lasix. We will follow recommendation of Cardiology. BNP is elevated at over greater than 5000. An echocardiogram is pending. 2. Atrial flutter. Continue Eliquis as above. 3. Hyponatremia. The patient is currently receiving intravenous fluids. 4. Chronic obstructive pulmonary disease. Continue DuoNeb nebulized as above. The patient was initially placed on BiPAP in the emergency room. A Pulmonary consultation has been obtained with Dr. Mendel Sierra. 5. Hypertension. Continue Lasix as above. 6. Seizure disorder. The patient is currently off antiseizure medication. 7. Paranoid schizophrenia. Continue Risperdal as above. 8. antibiotic=cefepime and vanco 9. Patient refused trach 10. Discharge plan: [facility] when bed available with [facility] Juan Dutta MD October 07, 2018 17:56
[2018-10-07] MEDS ORDERED: Docusate 100mg cap ORAL SCH (18:00)
--- NOTE | 2018-10-07 18:25 | NUR ---
NURSE NOTES: Report given to Iliana from [facility].
--- NOTE | 2018-10-07 18:55 | Infectious Diseases Prog Note ---
Assessment/Plan Assessment/Plan Assessment: Low grade fever x1, SP Leukocytosis, SP Probable PNA -10/07 CXR: Initial prominence which may be related to mild congestive changes /CHF. Apparent retrocardiac densities possibly artifactual from overlying large heart versus related to airspace disease or pleural effusion. -sp cx MSSA, ABC ( S cefepime, Meropenem) -10/05 CXR: Mild interstitial edema/CHF may be present. Correlate clinically -09/24 CXR: There is persistent opacity at the left lung base. -09/21 CT chest: Completely atelectatic left lung. This is likely due to endobronchial occlusion by debris. However, a small pulmonary hilar mass may also be present. This finding was discussed by phone with Dr. Sierra previously. Small left pleural effusion. Trace right pleural effusion. Posterior and basilar atelectatic changes of the right lung. Single enlarged aortopulmonary window lymph node. This could be neoplastic or reactive. This is increased in size since prior study 03/13/2018. Right lung groundglass opacity, nonspecific but likely on the basis of mild pulmonary edema. Mild cardiomegaly. Pericardial effusion Probable UTI -09/24 u/a wbc tnct nit +, leuk +3; ucx>100k EColi Gram positive bacteremia- real vs contamination -09/24 Bcx 06/05 ConS, 09/26 06/03 : Staph epid; 09/29 Bcx neg Hx of recurrent CONS bacteremia -07/28/18 Bcx 07/06 CONS; 07/29 Bcx Neg; 08/23 BCx neg -2d echo: no obvious vegetation -05/19/18 Bcx 08/03 S. hominis sp hominis; 05/21 Bc xNeg 2d eCho: no vegetations. Focal aortic valve sclerosis with reduced cusp excursion. Thickened mitral valve leaflets with reduced excursion. 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, s/p Rx SP VDRF, 04/10 Sp extubated Legionella Ur Ag: Neg, Legionella IgM + / IgG - Scx: No sig growth Flu screen negative Acute on chronic respiratory failure s/p intubation 09/22, 09/28 extubated CHF and COPD exacerbation Atrial flutter dCHF COPD CAD s/p stents Hypertension Seizure disorder Schizophrenia Depression History of intraventricular pacemaker implantation GERD CVA/TIA b/l hip replacement hx of L DVT history of alcohol abuse hx of recurrent admissions hx of high grade CONS bacteremia SNF resident Plan: -Cont Cefepime # 14/ 14 for PNA and UTI and IV Vancomycin # 13/14 (for Pneum, CoNS bactremia most likley contaminant ) -10/03 Sp INH [place] d# / -Monitor CBC/CMP, temperatures -Cdiff if diarrhea - aspiration precautions Subjective Allergies: Coded Allergies: PIPERACILLIN (Unverified Allergy, Unknown, 05/21/18) tolerates cephalosporins TAZOBACTAM (Unverified Allergy, Unknown, 03/10/18) Subjective afebrile no leukocytosis at 2l NC Objective Vital Signs Last 24 Hour Vital Signs Date Time Temp Pulse Resp B/P (MAP) Pulse Ox O2 Delivery O2 Flow Rate FiO2 10/07/18 18:13 Nasal Cannula 2.0 10/07/18 16:00 82 10/07/18 16:00 98.6 86 34 155/70 (98) 100 10/07/18 16:00 Nasal Cannula 2.0 10/07/18 12:18 Nasal Cannula 2.0 10/07/18 12:00 85 10/07/18 12:00 Nasal Cannula 2.0 10/07/18 12:00 99.7 84 28 147/64 (91) 100 10/07/18 08:00 Nasal Cannula 2.0 10/07/18 08:00 88 10/07/18 08:00 99.0 89 28 149/65 (93) 100 10/07/18 07:18 Nasal Cannula 2.0 28 10/07/18 07:18 98 Nasal Cannula 2.0 28 10/07/18 07:18 82 18 Nasal Cannula 2.0 28 10/07/18 04:00 98.3 87 28 150/68 (95) 95 10/07/18 04:00 86 10/07/18 04:00 Nasal Cannula 2.0 10/07/18 03:07 87 27 92 Facial 30 10/07/18 01:30 80 20 94 Full Face 30 10/07/18 00:00 87 10/07/18 00:00 97.0 84 24 141/76 (97) 99 10/07/18 00:00 Nasal Cannula 2.0 10/06/18 21:22 86 35 94 Facial 30 10/06/18 20:00 97.7 84 28 139/72 (94) 96 10/06/18 20:00 Nasal Cannula 2.0 28 10/06/18 20:00 96 Nasal Cannula 2.0 28 10/06/18 20:00 87 10/06/18 20:00 Nasal Cannula 2.0 Height (Feet): 5 Weight (Pounds): 175 Objective GENERAL: Shows to be elderly female, in no respiratory distress. NECK: Supple. No jugular venous distention. LUNGS: Inspiratory and expiratory wheezes. CARDIAC: Irregularly irregular. No heaves, thrills, or gallops noted. ABDOMEN: Soft, nontender. Positive bowel sounds. EXTREMITIES: There is no clubbing, cyanosis, or edema. NEUROLOGICAL: She is awake, alert, responsive. Laboratory Tests Test 10/07/18 03:10 White Blood Count 8.7 K/UL (4.8-10.8) Red Blood Count 4.20 M/UL (4.20-5.40) Hemoglobin 10.7 G/DL (12.0-16.0) L Hematocrit 34.3 % (37.0-47.0) L Mean Corpuscular Volume 82 FL (80-99) Mean Corpuscular Hemoglobin 25.5 PG (27.0-31.0) L Mean Corpuscular Hemoglobin Concent 31.2 G/DL (32.0-36.0) L Red Cell Distribution Width 18.1 % (11.6-14.8) H Platelet Count 208 K/UL (150-450) Mean Platelet Volume 7.8 FL (6.5-10.1) Neutrophils (%) (Auto) 80.5 % (45.0-75.0) H Lymphocytes (%) (Auto) 8.4 % (20.0-45.0) L Monocytes (%) (Auto) 7.5 % (1.0-10.0) Eosinophils (%) (Auto) 1.6 % (0.0-3.0) Basophils (%) (Auto) 1.9 % (0.0-2.0) Sodium Level 148 MMOL/L (136-145) H Potassium Level 4.4 MMOL/L (3.5-5.1) Chloride Level 110 MMOL/L (98-107) H Carbon Dioxide Level 30 MMOL/L (21-32) Anion Gap 8 mmol/L (5-15) Blood Urea Nitrogen 16 mg/dL (7-18) Creatinine 0.4 MG/DL (0.55-1.30) L Estimat Glomerular Filtration Rate mL/min (>60) Glucose Level 118 MG/DL (74-106) H Uric Acid 3.4 MG/DL (2.6-7.2) Calcium Level 8.8 MG/DL (8.5-10.1) Phosphorus Level 4.0 MG/DL (2.5-4.9) Magnesium Level 2.1 MG/DL (1.8-2.4) Total Bilirubin 0.3 MG/DL (0.2-1.0) Aspartate Amino Transf (AST/SGOT) 25 U/L (15-37) Alanine Aminotransferase (ALT/SGPT) 36 U/L (12-78) Alkaline Phosphatase 71 U/L (46-116) C-Reactive Protein, Quantitative 2.3 mg/dL (0.00-0.90) H Pro-B-Type Natriuretic Peptide 1758 pg/mL (0-125) H Total Protein 6.3 G/DL (6.4-8.2) L Albumin 2.7 G/DL (3.4-5.0) L Globulin 3.6 g/dL Albumin/Globulin Ratio 0.8 (1.0-2.7) L Current Medications Medications (Trade) Dose Ordered Sig/Ibrahima Route PRN Reason Start Time Stop Time Status Last Admin Dose Admin Acetaminophen (Tylenol) 650 mg Q4H PRN NG Mild Pain (Pain Scale 1-3) 10/01/18 08:45 10/30/18 23:44 10/06/18 16:16 Albuterol/ Ipratropium (Albuterol/ Ipratropium) 3 ml Q4H PRN HHN Shortness of Breath 10/03/18 11:30 10/08/18 11:29 Dextrose (Dextrose 50%) 25 ml Q30M PRN IV Hypoglycemia 09/30/18 23:00 10/17/18 06:59 Dextrose (Dextrose 50%) 50 ml Q30M PRN IV Hypoglycemia 09/30/18 23:00 10/17/18 06:59 Docusate Sodium (Colace) 100 mg THREE TIMES A DAY ORAL 10/07/18 18:00 11/06/18 17:59 Folic Acid (Folate) 5 mg DAILY NG 10/01/18 09:00 10/18/18 09:59 10/07/18 08:26 Furosemide (Lasix) 20 mg DAILY IV 10/08/18 09:00 11/07/18 08:59 Lansoprazole (Prevacid) 30 mg BID ORAL 10/07/18 18:00 11/06/18 17:59 10/07/18 18:39 Phenol/Menthol (Chloraseptic) 1 spray Q3H PRN ORAL THROAT PAIN 10/01/18 14:00 10/31/18 13:59 10/04/18 06:55 Vancomycin HCl (Vanco rx to dose) 1 ea DAILY PRN MISC Per rx protocol 10/01/18 09:00 10/25/18 13:14 Vancomycin HCl 750 mg/Sodium Chloride 275 ml @ 183.333 mls/hr Q12HR@0400,1600 IVPB 10/02/18 16:00 10/08/18 15:59 10/07/18 16:41 Danica Nayak M.D. October 07, 2018 18:54
--- NOTE | 2018-10-07 19:23 | NUR ---
NURSE NOTES: Received bedside report from CHARLETTE Piper.Patient stable,A&Ox 3,AFib-AFlutter on hospital monitor,tolerated N/C well 2 L/min,BiPAP PRN 15/5 FiO2 30%,F/cath for retention,PRATEEK 22G asymptomatic,intact SL,bed secured,call light within a reach.Waiting for [facility] to transfer pt back to [facility] rehab.
--- NOTE | 2018-10-07 19:26 | NUR ---
HAND-OFF: Report given to CHARLETTE Jimenez. Pt in stable condition.
[2018-10-07 20:00] VITALS: BP 136/67
--- NOTE | 2018-10-07 20:00 | NUR ---
NURSE NOTES: Report given to [facility] nurse,Yang,patient stable for transportation,no c/o pain,no respiratory distress noted,cardiac nurse specialist has been removed by previous shift nurse,no belongings.
--- NOTE | 2018-10-07 20:18 | Cardiology Progress Note ---
Assessment/Plan Assessment/Plan 1. Bronchospasm. 2. Possible left-sided infiltrate or pneumonia. 3. Diastolic heart failure history. 4. Permanent atrial fibrillation. 5. lung collapse 6. hs of pacer tele afib no trach doen will be going to snf resume eliquis ekg today afib coags to done cxr personally reviewed echo normal lv function moderate diastolic dysfunction diamox was dcd yest on lasix 40 mg qd extra k message left for dr sylvester regarding restart of eliquis at [facility] Subjective Cardiovascular: Denies: chest pain, lightheadedness, palpitations Respiratory: Reports: cough Gastrointestinal/Abdominal: Denies: abdominal pain Genitourinary: Denies: burning Objective Last 24 Hour Vital Signs Date Time Temp Pulse Resp B/P (MAP) Pulse Ox O2 Delivery O2 Flow Rate FiO2 10/07/18 20:00 98.3 87 24 136/67 (90) 95 10/07/18 20:00 Nasal Cannula 2.0 10/07/18 18:13 Nasal Cannula 2.0 10/07/18 16:00 82 10/07/18 16:00 98.6 86 34 155/70 (98) 100 10/07/18 16:00 Nasal Cannula 2.0 10/07/18 12:18 Nasal Cannula 2.0 10/07/18 12:00 85 10/07/18 12:00 Nasal Cannula 2.0 10/07/18 12:00 99.7 84 28 147/64 (91) 100 10/07/18 08:00 Nasal Cannula 2.0 10/07/18 08:00 88 10/07/18 08:00 99.0 89 28 149/65 (93) 100 10/07/18 07:18 Nasal Cannula 2.0 28 10/07/18 07:18 98 Nasal Cannula 2.0 28 10/07/18 07:18 82 18 Nasal Cannula 2.0 28 10/07/18 04:00 98.3 87 28 150/68 (95) 95 10/07/18 04:00 86 10/07/18 04:00 Nasal Cannula 2.0 10/07/18 03:07 87 27 92 Facial 30 10/07/18 01:30 80 20 94 Full Face 30 10/07/18 00:00 87 10/07/18 00:00 97.0 84 24 141/76 (97) 99 10/07/18 00:00 Nasal Cannula 2.0 10/06/18 21:22 86 35 94 Facial 30 General Appearance: alert Neck: supple Cardiovascular: normal rate Respiratory/Chest: lungs clear, normal breath sounds Abdomen: normal bowel sounds, non tender, soft Extremities: no swelling Intake and Output 10/06/18 10/07/18 19:00 07:00 Intake Total 1170.000 ml 580 ml Output Total 1250 ml 400 ml Balance -80.000 ml 180 ml Free Water 30 ml IV Total 330.000 ml Tube Feeding 660 ml 440 ml Blood Product 110 ml Other 180 ml Output Urine Total 1250 ml 400 ml Laboratory Tests Test 10/07/18 03:10 White Blood Count 8.7 K/UL (4.8-10.8) Red Blood Count 4.20 M/UL (4.20-5.40) Hemoglobin 10.7 G/DL (12.0-16.0) L Hematocrit 34.3 % (37.0-47.0) L Mean Corpuscular Volume 82 FL (80-99) Mean Corpuscular Hemoglobin 25.5 PG (27.0-31.0) L Mean Corpuscular Hemoglobin Concent 31.2 G/DL (32.0-36.0) L Red Cell Distribution Width 18.1 % (11.6-14.8) H Platelet Count 208 K/UL (150-450) Mean Platelet Volume 7.8 FL (6.5-10.1) Neutrophils (%) (Auto) 80.5 % (45.0-75.0) H Lymphocytes (%) (Auto) 8.4 % (20.0-45.0) L Monocytes (%) (Auto) 7.5 % (1.0-10.0) Eosinophils (%) (Auto) 1.6 % (0.0-3.0) Basophils (%) (Auto) 1.9 % (0.0-2.0) Sodium Level 148 MMOL/L (136-145) H Potassium Level 4.4 MMOL/L (3.5-5.1) Chloride Level 110 MMOL/L (98-107) H Carbon Dioxide Level 30 MMOL/L (21-32) Anion Gap 8 mmol/L (5-15) Blood Urea Nitrogen 16 mg/dL (7-18) Creatinine 0.4 MG/DL (0.55-1.30) L Estimat Glomerular Filtration Rate mL/min (>60) Glucose Level 118 MG/DL (74-106) H Uric Acid 3.4 MG/DL (2.6-7.2) Calcium Level 8.8 MG/DL (8.5-10.1) Phosphorus Level 4.0 MG/DL (2.5-4.9) Magnesium Level 2.1 MG/DL (1.8-2.4) Total Bilirubin 0.3 MG/DL (0.2-1.0) Aspartate Amino Transf (AST/SGOT) 25 U/L (15-37) Alanine Aminotransferase (ALT/SGPT) 36 U/L (12-78) Alkaline Phosphatase 71 U/L (46-116) C-Reactive Protein, Quantitative 2.3 mg/dL (0.00-0.90) H Pro-B-Type Natriuretic Peptide 1758 pg/mL (0-125) H Total Protein 6.3 G/DL (6.4-8.2) L Albumin 2.7 G/DL (3.4-5.0) L Globulin 3.6 g/dL Albumin/Globulin Ratio 0.8 (1.0-2.7) L Akbar Reno MD October 07, 2018 20:18
[2018-10-07] MEDS ORDERED: NS 275ml ONE (20:22)
[2018-10-07] MEDS ORDERED: Cefepime HCl 1 GM in D5W 55 ML IVPB ONE (21:00)
[2018-10-08] MEDS ORDERED: Eliquis 5mg tablet ORAL SCH (09:00)
--- NOTE | 2018-10-08 16:29 | Discharge Summary ---
Discharge Summary Discharge Summary _ DATE OF ADMISSION: 09/16/2018 DATE OF DISCHARGE: 10/07/2018 ADMITTING MD: Dr. Yonathan Mendoza DISCHARGED BY: Dr. Mendel Sierra CONSULTANTS: Dr. Mendel Little [facility] COURSE: Patient is a 77-year-old white female, who presented to ED with chief complaint of shortness of breath. Patient is a resident of [facility]. The patient began to have shortness of breath on 09/16/2018. She was given several albuterol nebulizer treatments. Shortness of breath did not improve. O2 saturation was noted to be in the 80s. She has medical history significant for atrial flutter, congestive heart failure, COPD, coronary artery disease, hypertension, seizure disorder, paranoid schizophrenia and depression. She was taken to [facility] for further evaluation. On arrival to ED, patient was saturating 96% on nonrebreather mask. Blood work did not show any leukocytosis. Hemoglobin 10, hematocrit 31. Sodium was 124. Chloride 85. Troponin was negative. proBNP was elevated to 5241. Urinalysis showed 3+ leukocyte esterase, 5-10 WBC, 5-10 RBC, positive nitrite. EKG was in atrial fibrillation with no ischemic changes. Chest x-ray showed bilateral interstitial congestion. ABG showed acidosis with hypercapnia. She was started on BiPAP. She was given Lasix. She was started on antibiotics. She was then admitted to [facility] for COPD exacerbation and hypercapnia. She was continued on BiPAP support. She was given nebulizer treatment. She was eventually started on Solu-Medrol. She was given IV Lasix. She was given Eliquis for atrial flutter. Patient had hyponatremia. She was given 3% saline solution. Diamox dose was adjusted. Patient had low MCV anemia. She was given IV ironx 1. She was given folate and thiamine. Thyroid function was normal. A.m. cortisol was normal. There was no evidence of adrenal insufficiency or hypothyroidism. Echocardiogram done showed ejection fraction of 55% with peak aortic gradient of 15 with mean of 7, aortic valve area of 1.6 and PA pressure of 32. Venous duplex was negative for acute DVT. Patient has a history of leadless [employer] permanent pacemaker placement in 2016 at [facility]. Patient's heart rate was controlled with intermittent ventricular pacing. Repeat chest x-ray done on showed worsening with near complete opacification of the left lung. She was given chest physiotherapy. Left side of the chest was elevated. Serial chest x-rays were done. Chest CT with contrast showed completely atelectatic left lung. Likely due to endobronchial occlusion chest ultrasound showed trace left pleural fluid, insufficient for safe thoracentesis. On 09/22/2018, patient was in distress despite on BiPAP. ED physician was called. CODE STATUS was changed to full code. Patient was then orally intubated. Eliquis was placed on hold in case of needed bronchoscopy. Following day, chest x-ray showed resolution of lung collapse. She was placed back on Eliquis. Patient had leukocytosis. Blood culture did not isolate any growth. Sputum culture with staph aureus and gram-negative bacteria. She was started empirically on cefepime and IV vancomycin. Story of recurrent CONS bacteremia. Patient had a difficult time weaning off vent support. She was finally extubated on 09/29/2018. She failed swallow evaluation. PCO2 was greater than 70. She was placed back on BiPAP on 10/05/2018. Dr. Gonzalez was consulted. Plan for possible trach. Procedure was canceled. As patient CODE STATUS was changed back to DNR/DNI. She was eventually discharged back to SNF. FINAL DIAGNOSES: Acute on chronic respiratory failure status post intubation 09/22/2018 and extubation 09/28/2018 Acute on chronic diastolic CHF exacerbation Acute COPD exacerbation Left lung collapse Bronchospasm Permanent atrial fibrillation CAD status post stent Hypertension Seizure disorder Schizophrenia Depression History of intraventricular pacemaker implantation Hyponatremia GERD History of CONS bacteremia Anemia Hypoalbuminemia Encephalopathy due to high CO2/metabolic encephalopathy Diabetes Dysphagia, failed swallow evaluation SNF resident DNR/DNI DISPOSITION: DC to SNF with hospice I have been assigned to complete a discharge summary on this account, I was not involved with the patient's management. Delmi Gtuierrez NP October 08, 2018 16:29
== END 2018-10-07 20:23 | DRG 291 ==
LOC: EDBD 22:04 → EMR 22:15 → 2E 22:49 → EDBEDREQ 23:26 → 2W 09-17 00:15 → 2E 09-18 17:49 → 2W 09-21 14:00 → ICU 09-22 12:16 → 2W 09-30 22:46
PROC: 0BH17EZ Insertion of Endotracheal Airway into Trachea, Via Natural or Artificial Opening (ICD-10-PCS; principal; 2018-09-22)
PROC: 5A1955Z Respiratory Ventilation, Greater than 96 Consecutive Hours (ICD-10-PCS; principal; 2018-09-22)
DX: I11.0 Hypertensive heart disease with heart failure (principal); J96.22 Acute and chronic respiratory failure with hypercapnia; J18.9 Pneumonia, unspecified organism; G93.49 Other encephalopathy; N39.0 Urinary tract infection, site not specified; E87.1 Hypo-osmolality and hyponatremia; F20.0 Paranoid schizophrenia; J44.0 Chronic obstructive pulmonary disease with (acute) lower respiratory infection; E87.3 Alkalosis; J90 Pleural effusion, not elsewhere classified; J98.11 Atelectasis; J44.1 Chronic obstructive pulmonary disease with (acute) exacerbation; I50.33 Acute on chronic diastolic (congestive) heart failure; I48.0 Paroxysmal atrial fibrillation; G40.909 Epilepsy, unspecified, not intractable, without status epilepticus; F32.9 Major depressive disorder, single episode, unspecified; I25.10 Atherosclerotic heart disease of native coronary artery without angina pectoris; Z95.5 Presence of coronary angioplasty implant and graft; Z99.3 Dependence on wheelchair; Z95.0 Presence of cardiac pacemaker; M10.9 Gout, unspecified; E88.09 Other disorders of plasma-protein metabolism, not elsewhere classified; D64.9 Anemia, unspecified; Z96.643 Presence of artificial hip joint, bilateral; R13.10 Dysphagia, unspecified; E87.6 Hypokalemia; E83.42 Hypomagnesemia; Z66 Do not resuscitate
CPT/HCPCS: 36415; 36600; 71045; 71260; 74018; 76604; 80048; 80053; 80061; 80076; 80202; 81003; 82270; 82378; 82533; 82550; 82553; 82607; 82728; 82746; 82803; 82977; 83036; 83540; 83550; 83605; 83735; 83880; 83930; 83935; 84100; 84300; 84443; 84478; 84484; 84550; 85007; 85025; 85610; 85651; 85730; 86140; 87040; 87070; 87086; 87181; 87205; 93005; 93306; 93970; 94002; 94003; 94640; 94660; 94664; 94760; 96365; 96368; 96375; 99291; J7620; J8499